=== PATIENT | male | born 1950 | race Caucasian/White ===

== ENCOUNTER → 2016-08-17 | Outpatient (CLI) | payer BC, OTHER ==
[~2016-08-17] MED LIST: ACET325T96 PO; BACL10TA PO; BISA10SU38 PR; CALC500C3; CHOL1CAP57 PO; CLR10 PO; FLUT0.0529; FLX10 PO; GABA-113 PO; LISI-725 PO; LORA-741 PO; LSX/40 PO; MELA1CAP PO; MOML PO; MULT-506 PO; OXYC-57 PO; POLY335025; POTA10CA28 PO; POTAGRA; SALI0.6510; SIMV20TA2 PO; SODIENE PR; SULF800T23 PO; TRAM-10 PO; WARF4TAB8 PO; ZNF/4 PO; ZNT/150 PO; [UNRECOGNIZED DRUG - OTHER] PO
--- NOTE | 2016-08-17 18:56 | DIAGNOSTIC IMAGING REPORT ---
KUB CLINICAL HISTORY: Right-sided nephrolithiasis COMPARISON STUDY: CT scan dated 09/23/2015 FINDINGS: The renal shadows are largely obscured by overlying bowel gas and fecal material. There is gaseous distention of the bowel. There is a suspected 1 cm right renal calculus. There is an IVC filter with its apex at the T12-L1 level. There are multiple pelvic basin calcifications. Several these are in the midline, consistent with bladder calculi. IMPRESSION: 1. Mild gaseous distention of bowel 2. Right-sided nephrolithiasis 3. Multiple bladder calculi Electronically signed by: Cj Garsia M.D. 08/17/2016 6:55 PM Dictated Date/Time: 08/17/2016 6:52 PM
== END | disposition home or self-care (01) ==
LOC: C.RAD 17:57
PROVIDERS: ATTEND Urology
DX: N20.0 Calculus of kidney (principal); N21.0 Calculus in bladder

== ENCOUNTER → 2016-08-17 | Outpatient (CLI) | payer BC, OTHER | END | disposition home or self-care (01) | LOC: C.LABSPEC 11:27 | PROVIDERS: ATTEND Urology | DX: N20.0 Calculus of kidney (principal) ==

== ENCOUNTER 2016-08-29 08:32 | Day surgery (SDC) | payer BC, OTHER ==
[2016-08-22 14:10] VITALS: BMI 31.0
--- NOTE | 2016-08-24 15:52 | PAT Medication Instructions ---
Service Date Aug 24, 2016. Current Home Medication List Acetaminophen Tab (Tylenol), 650 MG PO PRN Baclofen (Lioresal), 20 MG PO Q6H Bisacodyl (Dulcolax), 1 SUPP HI HS Calcium Carbonate (Tums), 1,250 TID Cholecalciferol (Vitamin D3), 1 CAP PO QPM Cyclobenzaprine HCl (Cyclobenzaprine HCl), 10 MG PO Q8H PRN for Muscle Spasms Fluticasone Propionate (Nasal) (Flonase), 2 SPRAYS QAM Furosemide (Lasix), 40 MG PO QAM Gabapentin (Neurontin), 300 MG PO TID Lisinopril (Zestril), 20 MG PO QPM Loratadine (Claritin), 10 MG PO QAM Lorazepam (Ativan), 0.5 MG PO Q6H PRN for Anxiety/Insomnia Magnesium Hydroxide (Milk Of Magnesia), 30 ML PO DAILY PRN for Constipation Melatonin (Melatonin), 5 MG PO HS Multivitamin (Multivitamin), 1 TAB PO QAM Oxycodone/Acetaminophen 5MG/325MG (Percocet 5MG/325MG), 1 TABLET PO Q4H PRN for Pain Polyethylene Glycol 3350 (Miralax), 17 GM QAM Potassium Chloride (Micro-K Ext Rel), 10 MEQ PO BID Potassium Citrate-Citric Acid (Cytra K Crystals), 15 ML TID Ranitidine Hcl (Zantac), 150 MG PO QAM Saline ([place] Nasal [place]), 2 SPRAYS Q4 PRN for Nasal Congestion Simvastatin (Zocor), 20 MG PO QPM Tizanidine (Tizanidine HCl), 4 MG PO HS Warfarin Sod (Jantoven), 4 MG PO HS Medication Instructions For Your Scheduled Surgery - Please check with prescribing physician for instructions: Warfarin Sod (Jantoven), 4 MG PO HS - Hold the following medications 24 hours prior to surgery: Lisinopril (Zestril), 20 MG PO QPM - Hold the following medications the morning of surgery: Calcium Carbonate (Tums), 1,250 TID Baclofen (Lioresal), 20 MG PO Q6H Multivitamin (Multivitamin), 1 TAB PO QAM Polyethylene Glycol 3350 (Miralax), 17 GM QAM Furosemide (Lasix), 40 MG PO QAM Loratadine (Claritin), 10 MG PO QAM Potassium Chloride (Micro-K Ext Rel), 10 MEQ PO BID Potassium Citrate-Citric Acid (Cytra K Crystals), 15 ML TID Magnesium Hydroxide (Milk Of Magnesia), 30 ML PO DAILY PRN for Constipation Cyclobenzaprine HCl (Cyclobenzaprine HCl), 10 MG PO Q8H PRN for Muscle Spasms - Take the following medications the morning of surgery with a sip of water: Saline ([place] Nasal [place]), 2 SPRAYS Q4 PRN for Nasal Congestion Oxycodone/Acetaminophen 5MG/325MG (Percocet 5MG/325MG), 1 TABLET PO Q4H PRN for Pain (may take if needed up to 4 hours prior to surgery) Acetaminophen Tab (Tylenol), 650 MG PO PRN (may take if needed up to 4 hours prior to surgery) Ranitidine Hcl (Zantac), 150 MG PO QAM Gabapentin (Neurontin), 300 MG PO TID Lorazepam (Ativan), 0.5 MG PO Q6H PRN for Anxiety/Insomnia Fluticasone Propionate (Nasal) (Flonase), 2 SPRAYS QAM - Take the following medications as scheduled the night before surgery: Simvastatin (Zocor), 20 MG PO QPM Tizanidine (Tizanidine HCl), 4 MG PO HS Saline ([place] Nasal [place]), 2 SPRAYS Q4 PRN for Nasal Congestion Oxycodone/Acetaminophen 5MG/325MG (Percocet 5MG/325MG), 1 TABLET PO Q4H PRN for Pain Acetaminophen Tab (Tylenol), 650 MG PO PRN Oxycodone/Acetaminophen 5MG/325MG (Percocet 5MG/325MG), 1 TABLET PO Q4H PRN for Pain Acetaminophen Tab (Tylenol), 650 MG PO PRN Calcium Carbonate (Tums), 1,250 TID Baclofen (Lioresal), 20 MG PO Q6H Melatonin (Melatonin), 5 MG PO HS Bisacodyl (Dulcolax), 1 SUPP HI HS Cholecalciferol (Vitamin D3), 1 CAP PO QPM Gabapentin (Neurontin), 300 MG PO TID Potassium Chloride (Micro-K Ext Rel), 10 MEQ PO BID Potassium Citrate-Citric Acid (Cytra K Crystals), 15 ML TID Lorazepam (Ativan), 0.5 MG PO Q6H PRN for Anxiety/Insomnia Cyclobenzaprine HCl (Cyclobenzaprine HCl), 10 MG PO Q8H PRN for Muscle Spasms If you have any questions please call us at [phone] or [phone] or [phone]
[~2016-08-29] VITALS: Ht 185.4 cm; Wt 109.1 kg
[~2016-08-29 08:32] MED LIST changes: +GENERAL ORDER PROBLEM SCH; +IMIPENEM/CILASTATIN IV 500 MG in D5W 100ML IV SCH; +LACTATED RINGER'S 1000ML 1,000 ML IV SCH; -SODIENE PR; -SULF800T23 PO; -TRAM-10 PO; -[UNRECOGNIZED DRUG - OTHER] PO
[2016-08-29] MEDS ORDERED: LIDOCAINE HCL 2% 2 ML VIAL (20MG/ML) ONE (09:13)
[2016-08-29] MEDS ORDERED: ONDANSETRON INJ 2 MG/ML 2 ML VIAL ONE (09:13)
[2016-08-29] MEDS ORDERED: DEXAMETHASONE SOD INJ 4 MG/ML VIAL ONE (09:13)
[2016-08-29] MEDS ORDERED: PROPOFOL IV EMULSION 10 MG/ML 20 ML VIAL IV ONE (09:13)
[2016-08-29] MEDS ORDERED: FENTANYL CITRATE INJ 50 MCG/1 ML 2 ML VIAL ONE (09:14)
[2016-08-29] MEDS ORDERED: MIDAZOLAM HCL 1 MG/ML 2ML VIAL ONE (09:14)
[2016-08-29 09:44] VITALS: BP 145/79; PULSE 62; TEMP 36.9; O2SAT 95; Ht 185.4 cm; Wt 109.1 kg
[2016-08-29 09:56] LABS: INR 1.3 (0.9-1.1); PARTIAL THROMBOPLASTIN RATIO 1.1
--- NOTE | 2016-08-29 10:09 | History & Physical Bridge Note ---
H&P Re-Evaluation Bridge Note: I have examined the patient, reviewed the History & Physical and in the interval since the performance of the History & Physical I have noted the following changes of clinical significance: No changes noted
[2016-08-29] MEDS ORDERED: SULF800T23 PO ×2 (10:20→11:44)
[2016-08-29] MEDS ORDERED: EpHEDrine SULFATE INJ 50 MG/ML AMP ONE (10:48)
[2016-08-29] MEDS ORDERED: WATER, STERILE FOR INJ 10 ML VIAL ONE (10:48)
[2016-08-29] MEDS ORDERED: SODIUM CHLORIDE 0.9% 1000ML 1,000 ML IV SCH (11:42)
--- NOTE | 2016-08-29 11:42 | [facility] Post Operative Brief Note ---
Immediate Operative Summary Operative Date Aug 29, 2016. Pre-Operative Diagnosis Bladder and ureteral calculi Post-Operative Diagnosis Bladder and ureteral calculi Procedure(s) Performed Cystoscopy, Right Ureteroscopy, Laser Lithotripsy; bladder stone removal, right ureteral stent placement ([id number]) Surgeon Dr. Jordan Barclay Foundation Drill Operator Surgeon(s) None Estimated Blood Loss 5mL Findings Several (3-4) stones in the bladder - irrigated out of the bladder; 2 distal ureteral stones. Specimens Permanent specimens A: Bladder stones for analysis Drains 6Fx 22-32cm Anesthesia Gen Complication(s) None Disposition Recovery Room / PACU (stable)
[2016-08-29] MEDS ORDERED: OXYCODONE/ACETAMINOPHEN 5-325 TAB PO PRN ×2 (11:45)
--- NOTE | 2016-08-29 11:45 | Discharge Instructions ---
Discharge Instructions Admission Reason for Admission: STONE Discharge Discharge Diagnosis / Problem: stones Discharge Goals Goal(s): Decrease discomfort, Improve function, Increase independence, Improve disease control Activity Recommendations Activity Limitations: resume your previous activity Lifting Limitations: none Exercise/Sports Limitations: none May Resume Sexual Activity: when tolerated Shower/Bathe: no limitations Driving or Machine Use: no limitations . Instructions / Follow-Up Instructions / Follow-Up Please keep your previously scheduled follow up appointment with Dr. Barclay Discharge Diet Recommended Diet: Regular Diet Procedures Procedures Performed: Cystoscopy, Right Ureteroscopy, Laser Lithotripsy; bladder stone removal, right ureteral stent placement ([id number]) Pending Studies Studies pending at discharge: no Medical Emergencies . Who to Call and When: Medical Emergencies: If at any time you feel your situation is an emergency, please call 911 immediately. . Non-Emergent Contact Non-Emergency issues call your: Urologist Call Non-Emergent contact if: you have a fever, temperature is above 101.5, your pain is not controlled, your pain is worsening . . "Provider Documentation" section prepared by Ortiz Savage. VTE Core Measure Inpt VTE Proph given/why not?: Warfarin (Coumadin)
[2016-08-29] MEDS ORDERED: EpHEDrine SULFATE INJ 50 MG/ML AMP IV PRN (12:00)
[2016-08-29] MEDS ORDERED: ATROPINE SULFATE 0.1 MG/ML 5ML SYR IV PRN (12:00)
--- NOTE | 2016-08-29 12:17 | OPERATIVE REPORT ---
DATE OF OPERATION: 08/29/2016 PREOPERATIVE DIAGNOSIS: Right ureteral calculi and bladder calculi. POSTOPERATIVE DIAGNOSIS: Same. PROCEDURES PERFORMED: Cystoscopy, extraction of bladder calculi, right ureteroscopy, laser lithotripsy, ureteral stent placement 6 Taiwanese x 22-32 cm. ANESTHESIA: General. ESTIMATED BLOOD LOSS: 5 mL. URINE OUTPUT: Not recorded. SPECIMENS: Bladder stones for routine chemical analysis. DESCRIPTION OF THE PROCEDURE: Quincy Germain was identified in the preoperative holding area. Appropriate informed consents were reviewed and completed and the patient was transported to the operating suite. Upon arrival, he received a dose of Primaxin as antibiotic prophylaxis. He has been on Bactrim prior to the procedure as well. His SP tube was clamped and he was put in dorsal lithotomy position where he was sterilely prepped and draped in standard fashion. I began the case by passing a 22-Taiwanese cystoscope with 30-degree lens. Of note, he has moderately high bladder neck, making cystoscopy modestly challenging. After getting scope into the bladder, full inspection revealed no evidence of mucosal disease. Ureteral orifices were in orthotopic position. The SP tube was visible in the dome of the bladder. I was able to turn my attention to the right ureteral orifice and cannulated it with a sensor wire and a 5-Taiwanese open-ended catheter. Of note, I suspect the stone was just inside the ureteral orifice as I had some resistance in this area with an initial attempt to pass through the wire; however, I was able to manipulate it beyond the stone. After advancing this wire to the kidney under fluoroscopy, I withdrew the cystoscope and I reentered with a semirigid ureteroscope. Although it was somewhat challenging to get over the bladder neck and prostate, I was able to guide this into the distal right ureter and I passed a second wire through the lumen of the scope to help guide it into the distal ureter. Approximately 2 cm inside the UO, I was able to encounter 2 yellow appearing calculi that were free floating and not impacted in the ureter. I passed 400 micron laser fiber and I fragmented these stones completely, irrigating as much out of the ureter as possible, pulverizing everything into pieces sub 1 mm. After confirming no large retained pieces in the distal ureter, I placed a 6 Taiwanese x 22-32 cm double-J ureteral stent, seeing a good curl in the kidney as well as the bladder. I subsequently concluded the case. The patient was extubated and taken to the PACU in stable condition. His SP tube was unclamped prior to conclusion of the case. I attest to the content of the Intraoperative Record and any orders documented therein. Any exceptions are noted below. FRANSISCOD
--- NOTE | 2016-08-29 12:20 | DIAGNOSTIC IMAGING REPORT ---
RETROGRADE INCLUDES KUB HISTORY: RT CYSTO/LASER/STENT FLUOROSCOPY TIME: 12 seconds. FINDINGS: 1 fluoroscopic spot image was submitted for review. Single image demonstrates a proximal ureteral stent which is likely in good position. The distal ureteral stent was not included. IVC filter is noted. IMPRESSION: Fluoroscopy provided for right ureteral stent placement. Electronically signed by: Gurinder Cooper M.D. 08/29/2016 12:18 PM Dictated Date/Time: 08/29/2016 12:17 PM
--- NOTE | 2016-08-29 12:28 | Anesthesiology Progress Note ---
Anesthesia Post Op Note Date & Time Aug 29, 2016 at 12:28 Vital Signs Pain Intensity: 0 Vital Signs Past 12 Hours Date Time Temp Pulse Resp B/P Pulse Ox O2 Delivery O2 Flow Rate FiO2 08/29/16 12:20 36.6 78 20 145/76 94 Room Air 08/29/16 12:10 75 19 150/79 95 Room Air 08/29/16 12:00 77 21 161/87 98 Mask 10 08/29/16 11:50 74 15 159/92 98 Mask 10 08/29/16 11:42 36.4 79 12 161/81 98 Mask 10 08/29/16 09:44 36.9 62 18 145/79 95 Room Air Notes Mental Status: alert / awake / arousable, participated in evaluation Pt Amnestic to Procedure: Yes Nausea / Vomiting: adequately controlled Pain: adequately controlled Airway Patency, RR, SpO2: stable & adequate BP & HR: stable & adequate Hydration State: stable & adequate Anesthetic Complications: no major complications apparent
[2016-08-29 12:40] VITALS: BP 152/75; PULSE 76; TEMP 36.7; O2SAT 94
[2016-08-29 13:10] VITALS: BP 144/71; PULSE 81; O2SAT 96
[2016-08-29 13:40] VITALS: BP 146/64; PULSE 86; TEMP 36.5; O2SAT 96
== END 2016-08-29 14:20 | disposition home or self-care (01) ==
LOC: C.ACU 08:32
PROVIDERS: ATTEND Urology
DX: N20.1 Calculus of ureter (principal); N21.0 Calculus in bladder; N31.9 Neuromuscular dysfunction of bladder, unspecified; G82.50 Quadriplegia, unspecified; I82.409 Acute embolism and thrombosis of unspecified deep veins of unspecified lower extremity; I10 Essential (primary) hypertension; E78.5 Hyperlipidemia, unspecified; Z79.899 Other long term (current) drug therapy

== ENCOUNTER 2017-08-15 11:35 | Day surgery (SDC) | payer BC, OTHER ==
[2017-08-02 09:30] VITALS: BMI 31.0
[~2017-08-15] VITALS: Ht 185.4 cm; Wt 106.8 kg
[~2017-08-15 11:35] MED LIST changes: -CALC500C3; +CALC500C3 PO; +CEFTRIAXONE SOD INJ 1 GM in DEXTROSE 5% ADD-VANTAGE 50ML 50 ML IV SCH; +CEFTRIAXONE SOD INJ 1000 MG in DEXTROSE 5% 50ML XX SCH; -FLUT0.0529; +FLUT0.15 NAE; -GENERAL ORDER PROBLEM SCH; -IMIPENEM/CILASTATIN IV 500 MG in D5W 100ML IV SCH; -POTAGRA; +RIVA1TAB4 PO; -WARF4TAB8 PO
[2017-08-15] MEDS ORDERED: OXYC1TAB3 PO (12:29)
[2017-08-15] MEDS ORDERED: PAXIL PO (12:34)
[2017-08-15] MEDS ORDERED: Bactrim PO (12:36)
[2017-08-15 12:41] VITALS: BP 154/75; PULSE 59; TEMP 36.8; O2SAT 99; Ht 185.4 cm; Wt 106.8 kg
[2017-08-15] MEDS ORDERED: ONDANSETRON INJ 2 MG/ML 2 ML VIAL ONE (13:00)
[2017-08-15] MEDS ORDERED: NALOXONE HCL 0.4 MG/1 ML VIAL/CARP IV PRN (13:00)
[2017-08-15] MEDS ORDERED: FLUMAZENIL 0.1 MG/1 ML 10 ML VIAL IV PRN (13:00)
[2017-08-15] MEDS ORDERED: PHENYLEPHRINE 100MCG/ML 5ML SYR IV PRN (13:00)
[2017-08-15] MEDS ORDERED: FENTANYL CITRATE INJ 50 MCG/1 ML 2 ML VIAL IV PRN (13:00)
[2017-08-15] MEDS ORDERED: PHENYLEPHRINE 100MCG/ML 5ML SYR ONE (13:00)
[2017-08-15] MEDS ORDERED: HYDROmorphone INJ 2 MG/ML SYR/VIAL IV PRN (13:00)
[2017-08-15] MEDS ORDERED: ATROPINE SULFATE 0.1 MG/ML 5ML SYR IV PRN (13:00)
[2017-08-15] MEDS ORDERED: MEPERIDINE HCL 25 MG/ML CARP IV PRN (13:00)
[2017-08-15] MEDS ORDERED: DEXAMETHASONE SOD INJ 4 MG/ML VIAL ONE (13:00)
[2017-08-15] MEDS ORDERED: EpHEDrine SULFATE INJ 50 MG/ML AMP IV PRN (13:00)
[2017-08-15] MEDS ORDERED: PROPOFOL IV EMULSION 10 MG/ML 20 ML VIAL IV ONE (13:00)
[2017-08-15] MEDS ORDERED: MIDAZOLAM HCL 1 MG/ML 2ML VIAL ONE (13:00)
[2017-08-15] MEDS ORDERED: LIDOCAINE HCL 2% 2 ML VIAL (20MG/ML) ONE (13:00)
[2017-08-15] MEDS ORDERED: EpHEDrine SULFATE 50MG/5ML SYR ONE (13:00)
[2017-08-15] MEDS ORDERED: ONDANSETRON INJ 2 MG/ML 2 ML VIAL IV PRN (13:00)
[2017-08-15] MEDS ORDERED: LABETALOL HCL IV 5 MG/ML 20ML IV PRN (13:00)
[2017-08-15] MEDS ORDERED: FENTANYL CITRATE INJ 50 MCG/1 ML 2 ML VIAL ONE (13:00)
[2017-08-15] MEDS ORDERED: CONRAY 30% 150ML BOTTLE ONE (13:55)
[2017-08-15] MEDS ORDERED: CEFA500C2 PO (14:02)
--- NOTE | 2017-08-15 14:05 | Discharge Instructions ---
Discharge Instructions Date of Service Aug 15, 2017. Admission Reason for Admission: STONE Discharge Discharge Diagnosis / Problem: stones Discharge Goals Goal(s): Decrease discomfort, Improve function, Increase independence, Improve disease control Activity Recommendations Activity Limitations: resume your previous activity Lifting Limitations: none Exercise/Sports Limitations: none May Resume Sexual Activity: when tolerated Shower/Bathe: no limitations Driving or Machine Use: resume 1 day after discharge Please resume your routine activities as tolerated. Instructions / Follow-Up Instructions / Follow-Up You may remove your stent on Monday, assuming you have no pain or fevers. If you have either pain or fevers, please leave your stent in place and call Dr. Barclay's office. Current Hospital Diet Patient's current hospital diet: Discharge Diet Recommended Diet: Regular Diet Pending Studies Studies pending at discharge: no Medical Emergencies . Who to Call and When: Medical Emergencies: If at any time you feel your situation is an emergency, please call 911 immediately. . Non-Emergent Contact Non-Emergency issues call your: Urologist Call Non-Emergent contact if: you have a fever, temperature is above 101.5, your pain is not controlled, your pain is worsening . . "Provider Documentation" section prepared by Ortiz Savage. . VTE Core Measure Inpt VTE Proph given/why not?: Other Anticoagulation
[2017-08-15] MEDS ORDERED: GLYCOPYRROLATE INJ 0.2 MG/ML VIAL ONE (14:31)
--- NOTE | 2017-08-15 15:38 | [facility] Post Operative Brief Note ---
Immediate Operative Summary Operative Date Aug 15, 2017. Pre-Operative Diagnosis Right Renal Calculus Post-Operative Diagnosis Right Renal Calculus Procedure(s) Performed Cystoscopy, Right Ureteroscopy, Laser Lithotripsy; stent ([id number]) Surgeon Dr. Jordan Barclay Breaker Machine Operator Surgeon(s) none Estimated Blood Loss 5cc Findings Consistent with Post-Op Diagnosis Specimens None Anesthesia Type General Complication(s) none Disposition Disposition: Recovery Room / PACU (stable)
--- NOTE | 2017-08-15 15:45 | DIAGNOSTIC IMAGING REPORT ---
REZA CLINICAL HISTORY: 67 years-old Male presenting with RIGHT SIDE CYSTO, LASER, STENT. TECHNIQUE: 0 fluoroscopic spot image(s) obtained as part of an intraoperative procedure. COMPARISON: CT from 07/27/2017. FINDINGS/IMPRESSION: No images were recorded for review. Please see surgical report for further details. Dose area product (mGy.cm^2): 1646.0. Fluoroscopy time: 21.6 seconds. Number of fluoroscopic spot images: 0. Electronically signed by: James Ashton M.D. 08/15/2017 3:44 PM Dictated Date/Time: 08/15/2017 3:43 PM
[2017-08-15] MEDS ORDERED: SODIUM CHLORIDE 0.9% 1000ML 1,000 ML IV SCH (16:01)
[2017-08-15] MEDS ORDERED: OXYCODONE/ACETAMINOPHEN 5-325 TAB PO PRN ×2 (16:15)
[2017-08-15] MEDS ORDERED: ACETAMINOPHEN 325 MG TAB PO PRN (16:15)
--- NOTE | 2017-08-15 16:23 | Anesthesiology Progress Note ---
Anesthesia Post Op Note Date & Time Aug 15, 2017 at 16:22 Vital Signs Pain Intensity: 0 Vital Signs Past 12 Hours Date Time Temp Pulse Resp B/P (MAP) Pulse Ox O2 Delivery O2 Flow Rate FiO2 08/15/17 16:16 72 15 08/15/17 16:10 36.7 69 16 148/76 (88) 98 Room Air 08/15/17 16:05 72 15 155/79 98 08/15/17 16:05 72 15 08/15/17 16:00 63 12 08/15/17 16:00 62 12 131/76 96 08/15/17 15:59 62 7 95 08/15/17 15:59 62 7 08/15/17 15:55 129/77 08/15/17 15:55 129/77 08/15/17 15:54 65 11 08/15/17 15:54 65 11 97 08/15/17 15:54 65 11 97 08/15/17 15:54 65 11 08/15/17 15:50 127/73 08/15/17 15:50 127/73 08/15/17 15:49 62 10 94 08/15/17 15:49 62 10 08/15/17 15:49 62 10 08/15/17 15:49 62 10 94 08/15/17 15:45 124/68 08/15/17 15:45 124/68 08/15/17 15:44 61 12 08/15/17 15:44 36.7 63 12 113/71 95 Oxymask 10 08/15/17 15:44 72 12 113/71 94 08/15/17 15:44 61 12 08/15/17 15:44 72 12 113/71 94 08/15/17 12:41 36.8 59 18 154/75 (101) 99 Room Air Notes Mental Status: alert / awake / arousable, participated in evaluation Pt Amnestic to Procedure: Yes Nausea / Vomiting: adequately controlled Pain: adequately controlled Airway Patency, RR, SpO2: stable & adequate BP & HR: stable & adequate Hydration State: stable & adequate Anesthetic Complications: no major complications apparent
[2017-08-15 16:37] VITALS: BP 144/72; PULSE 65; TEMP 36.5; O2SAT 94
[2017-08-15 17:07] VITALS: BP 153/76; PULSE 60; TEMP 36.6; O2SAT 96
--- NOTE | 2017-08-17 16:11 | [facility] Operative Report ---
Operative Report Operative Date Aug 17, 2017. Pre-Operative Diagnosis Right Renal Calculus Post-Operative Diagnosis Right Renal Calculus Procedure(s) Performed Cystoscopy, Right Ureteroscopy, Laser Lithotripsy; stent ([id number]) Surgeon Dr. Jordan Barclay Air Analysis Technician Surgeon(s) none Estimated Blood Loss 5cc Findings Very large right renal calculus Specimens None Anesthesia Type General Complication(s) none Disposition Recovery Room / PACU (stable) Description of Procedure The patient was identified in the preoperative holding area, appropriate informed consents reviewed and completed the was transported to the operating suite. He received appropriate general anesthesia as well as ceftriaxone prior to in beginning the case. Of note, the patient is a quadriplegic with a longstanding suprapubic tube and recurrent urinary calculi. He has recently developed a large stone in the right kidney - with relatively rapid growth over the past 6 months. A to begin today's case, I passed a 22 Tajik cystoscope with 30 degree lens. Similar to her prior procedures, entering the bladder was quite challenging as he has a high bladder neck and a small bladder secondary to his chronic SP use. I was able to navigate into the bladder and ultimately find the right ureteral orifice. I cannulated this with a Sensor wire and a 10 Tajik double-lumen catheter. A 2nd wire was ultimately guided into the kidney under fluoroscopic guidance utilizing the 10 Tajik double-lumen catheter. After passively dilating the distal ureter with a 10 Tajik double-lumen, I withdrew this and used a ureteral access sheath to access the kidney. A flexible ureteral scope was passed, and in the renal pelvis, I encountered a very large yellow appearing calculus. A 400 micron laser fiber was passed and the stone treatment initiated. After 1 hour of lasering, I would fragment in this entire stone. There were several other stones adjacent to the primary stone, attempted to fragment all of these. The stone was quite soft overall, and in turn there was significant pile of stone debris left at the end of treatment. I attempted to filter through this to identify any large retained fragments, however, the stone burden was enough that I fear there could still be residual larger stone fragments. I ensured there is no evidence of Steinstr[place], and then proceeded to place a 6 Tajik by 22-32 cm double-J ureteral stent. I concluded today's case, but we will plan to return in 2 weeks to filter through this stone debris again and identify any large fragments. He was subsequently extubated and taken to the PACU in stable condition. I attest to the content of the Intraoperative Record and any orders documented therein. Any exceptions are noted below.
== END 2017-08-15 17:34 | disposition home or self-care (01) ==
LOC: C.ACU 11:35
PROVIDERS: ATTEND Urology
DX: R33.9 Retention of urine, unspecified (principal); N31.9 Neuromuscular dysfunction of bladder, unspecified; N20.0 Calculus of kidney; R53.2 Functional quadriplegia; N18.9 Chronic kidney disease, unspecified; E78.5 Hyperlipidemia, unspecified; I12.9 Hypertensive chronic kidney disease with stage 1 through stage 4 chronic kidney disease, or unspecified chronic kidney disease; F41.9 Anxiety disorder, unspecified; F32.9 Major depressive disorder, single episode, unspecified; E66.9 Obesity, unspecified; Z68.31 Body mass index [BMI] 31.0-31.9, adult; Z98.890 Other specified postprocedural states; Z79.899 Other long term (current) drug therapy; Z88.1 Allergy status to other antibiotic agents; Z88.6 Allergy status to analgesic agent; Z88.8 Allergy status to other drugs, medicaments and biological substances; Z86.718 Personal history of other venous thrombosis and embolism; Z82.49 Family history of ischemic heart disease and other diseases of the circulatory system

== ENCOUNTER → 2017-09-04 | Day surgery (SDC) | payer BC, OTHER ==
[2017-08-22 16:00] VITALS: BMI 31.0
[~2017-09-04] VITALS: Ht 185.4 cm; Wt 106.8 kg
[~2017-09-04] MED LIST changes: +ACET-1693 PO; -ACET325T96 PO; +ACETAMINOPHEN 325 MG TAB PO PRN; +ATROPINE SULFATE 0.1 MG/ML 5ML SYR IV PRN; +Bactrim PO; +CEFA500C2 PO; -CEFTRIAXONE SOD INJ 1 GM in DEXTROSE 5% ADD-VANTAGE 50ML 50 ML IV SCH; +CEFTRIAXONE SOD INJ 1000 MG in DEXTROSE 5% 50ML IV SCH; -CEFTRIAXONE SOD INJ 1000 MG in DEXTROSE 5% 50ML XX SCH; +Cysto-Conray II 17.2% 250ML BOTTLE ONE; +DEXAMETHASONE SOD INJ 4 MG/ML VIAL ONE; +EpHEDrine SULFATE 50MG/5ML SYR ONE; +EpHEDrine SULFATE INJ 50 MG/ML AMP IV PRN; +FENTANYL CITRATE INJ 50 MCG/1 ML 2 ML VIAL IV PRN; +FENTANYL CITRATE INJ 50 MCG/1 ML 2 ML VIAL ONE; +GLYCOPYRROLATE INJ 0.2 MG/ML VIAL ONE; +LIDOCAINE HCL 2% 2 ML VIAL (20MG/ML) ONE; +MIDAZOLAM HCL 1 MG/ML 2ML VIAL ONE; +ONDANSETRON INJ 2 MG/ML 2 ML VIAL IV PRN; +ONDANSETRON INJ 2 MG/ML 2 ML VIAL ONE; -OXYC-57 PO; +OXYC1TAB3 PO; +OXYCODONE/ACETAMINOPHEN 5-325 TAB PO PRN; +PARO30TA PO; +PHENYLEPHRINE HCL INJ 10 MG/ML VIAL ONE; +PROMETHAZINE HCL INJ 6.25 MG in SODIUM CHLORIDE 0.9% 50ML 50 ML IV PRN; +PROPOFOL IV EMULSION 10 MG/ML 20 ML VIAL IV ONE; +SODIUM CHLORIDE 0.9% 1000ML 1,000 ML IV SCH
[2017-09-04 12:45] VITALS: BP 153/74; PULSE 63; TEMP 36.8; O2SAT 96; Ht 185.4 cm; Wt 106.8 kg
--- NOTE | 2017-09-04 14:48 | [facility] Operative Report ---
Operative Report Operative Date Sep 04, 2017. Pre-Operative Diagnosis Nephrolithiasis Post-Operative Diagnosis Nephrolithiasis Procedure(s) Performed Cystoscopy, Right Ureteroscopy, Laser Lithotripsy, Stent Exchange ([id number] with string) Surgeon Dr. Barclay Veterinary Assistant Surgeon(s) none Estimated Blood Loss 0 ml Findings moderate remaining stone burden Specimens none per surgeon Drains stent - [id number] Anesthesia Type General Complication(s) none Disposition no Indications stones; hematuria Description of Procedure The patient was identified in the preoperative holding area, appropriate informed consents reviewed and completed and the patient was transported to the operating suite. Upon arrival he received appropriate preoperative antibiotics in the form of ceftriaxone. Adequate general anesthesia was achieved and he was placed in dorsal lithotomy position where he was sterilely prepped and draped in standard fashion. I began the case by passing a 22 Armenian cystoscope per urethra. Inspection revealed no evidence of stricture disease. Becomes challenging into the bladder secondary to a right moderately high bladder neck as well as a swollen scrotum. Upon entry into the bladder, he is immediately noted to have a suprapubic tube as well as a right ureteral stent. The distal aspect of the right ureteral stent was grasped and withdrawn to the urethral meatus. Fluoroscopic observation of the superior curl confirmed an excellent unraveling during the withdrawal of the stent. Stent was subsequently intubated with a sensor wire. 10 Armenian double lumen catheter was utilized to place a second wire into the kidney. A ureteral access sheath was guided over one wire will reserving the other as a safety wire. I then passed a flexible ureteroscope per the access sheath. Initial inspection at the end of the ureteral access sheath seemed to reveal a healthy-appearing kidney, upon further inspection I realized that this was just below the UPJ and a moderately dilated section of ureter. I was able to navigate beyond this with the scope and truly enter the renal pelvis. Contrast was instilled at that time to better elucidate the full anatomy. He has a moderately dilated renal pelvis with blunt flat calyces around it. Visible inspection revealed significant stone debris with several large fragments as well as numerous small pieces. Much of the dust created from our last surgery had successfully cleared. I then passed a 400 m laser fiber and began laser lithotripsy. Utilizing dusting setting on the laser, was able to fragment the large pieces into a powdered dust very easily. I then sequentially worked through the remaining aspects of the debris until I felt all pieces were successfully treated maximally. At the conclusion of the laser lithotripsy portion of the case, there was only dust within the kidney and no large retained fragments. I attempted to irrigate as much of this debris out of the kidney as possible utilizing the ureteral access sheath. I then performed a very careful exit ureteroscopy while simultaneously withdrawing the ureteral access sheath. To conclude the case I placed a 6 Armenian by 2232 cm double-J ureteral stent. There was a good curl in the upper pole as well as a good curl in the bladder. A string was left attached to the distal aspect of the stent and it was affixed to the penis. The patient was subsequent extubated and taken to the PACU in stable condition. I attest to the content of the Intraoperative Record and any orders documented therein. Any exceptions are noted below.
--- NOTE | 2017-09-04 15:02 | DIAGNOSTIC IMAGING REPORT ---
RETROGRADE INCLUDES KUB CLINICAL HISTORY: 67 years-old Male presenting with RT LASER/LITHO AND STENT EXCHANGE. TECHNIQUE: 5 fluoroscopic spot image(s) obtained as part of an intraoperative procedure. COMPARISON: CT from 07/27/2017. FINDINGS/IMPRESSION: A catheter was introduced into the right renal collecting system over a guidewire to the level of the calculus at the right ureteropelvic junction. Subsequently, a right ureteral stent was placed. Inferior vena cava filter noted at the level of L1. Please see surgical report for further details. Dose area product (mGy.cm^2): 4324.4. Fluoroscopy time: 57.7 seconds. Number of fluoroscopic spot images: 5. Electronically signed by: James Ashton M.D. 09/04/2017 3:00 PM Dictated Date/Time: 09/04/2017 2:58 PM
--- NOTE | 2017-09-04 15:09 | Anesthesiology Progress Note ---
Anesthesia Post Op Note Date & Time Sep 04, 2017 at 15:09 Vital Signs Pain Intensity: 0 Vital Signs Past 12 Hours Date Time Temp Pulse Resp B/P (MAP) Pulse Ox O2 Delivery O2 Flow Rate FiO2 09/04/17 15:00 83 16 136/67 97 Oxymask 5 09/04/17 14:54 36.3 80 12 143/65 95 Oxymask 5 09/04/17 12:45 36.8 63 63 153/74 (100) 96 Room Air Notes Mental Status: alert / awake / arousable, participated in evaluation Pt Amnestic to Procedure: Yes Nausea / Vomiting: adequately controlled Pain: adequately controlled Airway Patency, RR, SpO2: stable & adequate BP & HR: stable & adequate Hydration State: stable & adequate Anesthetic Complications: no major complications apparent
--- NOTE | 2017-09-04 15:23 | Discharge Instructions ---
Discharge Instructions Date of Service Sep 04, 2017. Admission Reason for Admission: Stones Discharge Discharge Diagnosis / Problem: stones Discharge Goals Goal(s): Decrease discomfort, Improve function, Increase independence, Improve disease control Activity Recommendations Activity Limitations: resume your previous activity Lifting Limitations: none Exercise/Sports Limitations: none May Resume Sexual Activity: when tolerated Shower/Bathe: no limitations Driving or Machine Use: resume 1 day after discharge . Instructions / Follow-Up Instructions / Follow-Up It is ok to use the string to remove your stent on Monday. If you are having fevers or other issues prior to that time, please call Dr. Barclay before removing the stent. Dr. Barclay's office will call you to schedule a follow up CT scan and a nephrology appointment. Current Hospital Diet Patient's current hospital diet: Discharge Diet Recommended Diet: Regular Diet Procedures Procedures Performed: Cystoscopy, Right Ureteroscopy, Laser Lithotripsy, Stent Exchange ([id number] with string) Pending Studies Studies pending at discharge: no Medical Emergencies . Who to Call and When: Medical Emergencies: If at any time you feel your situation is an emergency, please call 911 immediately. . Non-Emergent Contact Non-Emergency issues call your: Urologist Call Non-Emergent contact if: you have a fever, temperature is above 101.5, your pain is unusual for you . . "Provider Documentation" section prepared by Ortiz Savage. . VTE Core Measure Inpt VTE Proph given/why not?: Other Anticoagulation
[2017-09-04 15:45] VITALS: BP 145/68; PULSE 75; TEMP 36.9; O2SAT 95
[2017-09-04 16:10] VITALS: BP 147/69; PULSE 76; O2SAT 94
[2017-09-04 16:45] VITALS: BP 148/69; PULSE 80; TEMP 36.7; O2SAT 9
== END | disposition home or self-care (01) ==
LOC: C.ACU 11:55
PROVIDERS: ATTEND Urology
DX: N20.0 Calculus of kidney (principal); N31.9 Neuromuscular dysfunction of bladder, unspecified; E78.5 Hyperlipidemia, unspecified; I10 Essential (primary) hypertension; F32.9 Major depressive disorder, single episode, unspecified; Z86.14 Personal history of Methicillin resistant Staphylococcus aureus infection; Z86.718 Personal history of other venous thrombosis and embolism; Z87.442 Personal history of urinary calculi; Z86.711 Personal history of pulmonary embolism; Z87.440 Personal history of urinary (tract) infections; Z82.49 Family history of ischemic heart disease and other diseases of the circulatory system; Z88.0 Allergy status to penicillin; Z88.6 Allergy status to analgesic agent; Z88.8 Allergy status to other drugs, medicaments and biological substances

== ENCOUNTER 2019-04-06 17:15 | Observation (INO) ==
[2019-04-06] MEDS ORDERED: ONDANSETRON INJ 2 MG/ML 2 ML VIAL IV STA (17:36)
[2019-04-06] MEDS ORDERED: SODIUM CHLORIDE 0.9% 1000ML 1,000 ML IV ONE (17:36)
[2019-04-06] MEDS ORDERED: MoRPHine SULFATE 4 MG/ML 1 ML CARP\\VIAL IV STA (17:36)
[2019-04-06 18:24] LABS: Basophils # (auto) 0.01 K/uL (0-0.2); Basophils % (auto) 0.1 %; Eosinophils # (auto) 0.25 K/uL (0-0.5); Eosinophils % (auto) 3.6 %; Hematocrit (blood only) 47.7 % (42-52); Hemoglobin 16.2 g/dL (14.0-18.0); Immature Granulocytes # (auto) 0.01 K/uL (0.00-0.02); Immature Granulocytes % (auto) 0.1 %; Lymphocytes # (auto) 0.87 K/uL (1.2-3.4); Lymphocytes % (auto) 12.4 %; Mean Corpuscular Hemoglobin 31.2 pg (25-34); Mean Corpuscular Volume 91.7 fL (80-100); Mean Platelet Volume 10.8 fL (7.4-10.4); Monocytes # (auto) 0.53 K/uL (0.11-0.59); Monocytes % (auto) 7.5 %; Neutrophils # (auto) 5.36 K/uL (1.4-6.5); Neutrophils % (auto) 76.3 %; Platelet Count 224 K/uL (130-400); RDW Coefficient of Variation 13.1 % (11.5-14.5); RDW Standard Deviation 44.1 fL (36.4-46.3); White Blood Count 7.03 K/uL (4.8-10.8)
[2019-04-06 18:42] LABS: Albumin Level 3.5 gm/dl (3.4-5.0); BUN Creatinine Ratio 10.5 (10-20); Calcium 9.6 mg/dl (8.5-10.1); Est GFR (African American) 88.8; Est GFR (Non-African American) 76.6; Potassium 3.9 mmol/L (3.5-5.1)
[2019-04-06 18:45] LABS: Albumin Globulin Ratio 0.7 (0.9-2); Bilirubin,Total 0.4 mg/dl (0.2-1); Globulin 4.8 gm/dl (2.5-4.0); Total Protein 8.3 gm/dl (6.4-8.2)
[2019-04-06 19:09] LABS: Appearance Urine Turbid (Clear); Bilirubin Urine Negative (Negative); Blood Urine 3+ (Negative); Color Urine Red; Glucose Urine UA Negative (Negative); Ketones Urine 2+ (Negative); Leukocyte Esterase Urine 2+ (Negative); Nitrite Urine Negative (Negative); Specific Gravity Urine 1.015 (1.000-1.030); Urobilinogen Urine Negative (Negative); pH Urine 7.5 (4.5-7.5)
[2019-04-06 19:14] LABS: Protein Urine 2+ (Negative)
[2019-04-06 19:15] LABS: Sulfosalicylic Acid Urine Positive (Negative)
[2019-04-06 19:18] LABS: Bacteria Urine 3+ (Negative); Epithelial Cell Urine 0-5 /lpf (0-5); RBC Urine >30 /hpf (0-4); WBC Urine >30 /hpf (0-5)
[2019-04-06] MEDS ORDERED: cefTRIAXone SODIUM 1,000 MG/50 ML BAG IV STA (19:24)
--- NOTE | 2019-04-06 19:37 | CT Scan Report ---
CT OF THE ABDOMEN AND PELVIS WITHOUT CONTRAST CLINICAL HISTORY: Stent placement. Hematuria. COMPARISON STUDY: CT of the abdomen and pelvis February 10, 2019. TECHNIQUE: Axial images of the abdomen and pelvis were obtained without IV contrast. Images were revi ewed in the axial, sagittal, and coronal planes. Automated exposure control was utilized for the rebecca dy. A dose lowering technique was utilized adhering to the principles of ALARA. FINDINGS: Elevation of the left hemidiaphragm is unchanged. A low-attenuation right adrenal nodule re flects an adenoma. A few hepatic cysts are noted. A gallstone is noted within the gallbladder without evidence for acute cholecystitis. A left adrenal nodule is also low-attenuation represents an adenom a. Unenhanced images of the spleen and pancreas are unremarkable. There is no biliary or pancreatic d uctal dilatation. There is no peripancreatic infiltration. There is no evidence for a bowel obstructi on. No pneumatosis, free air or portal venous gas is present. The appendix is normal. Right ureteral stent is in place. A small amount of gas is noted within the right ureter and collecti ng system which is likely related to recent stent placement. There is mild right periureteral infiltr ation which extends into the pelvis. There is infiltration adjacent to the bladder. Suprapubic cathet er is in place. A few small fragments within the bladder measure up to 5 mm. The large bladder calcul us on CT of February 10, 2019 is no longer evident. There are no ureteral calculi. Multiple bilateral re nal calculi are noted, including a 1.1 cm calculus within lower pole of the right kidney. There is a 9 mm calculus within the right renal pelvis. The calculus burden has decreased since CT of February 10, 2019. Water attenuation left renal lesions are suboptimally assessed on this unenhanced exam but favo r cysts. IMPRESSION: 1. Right ureteral stent in place. No hydronephrosis or hydroureter. Gas within the right ureter and c ollecting system likely from stent insertion. No ureteral calculi. 9 mm right renal pelvis calculus, a few small fragments within the bladder and bilateral nephrolithiasis. Interval decrease in calculus burden since CT of February 10, 2019. 2. Infiltration adjacent to the bladder which is nonspecific and could be correlated with urinalysis. Suprapubic catheter in place. 3. No bowel obstruction. Normal appendix. Electronically signed by: Elier Clemens M.D. 04/06/2019 7:35 PM
--- NOTE | 2019-04-06 19:58 | Emergency Department Note ---
Entered by Marlene Liao acting as a scribe for Meño Kat DO History of Present Illness General Chief complaint: Hematuria Source: patient History of Present Illness Onset (ago): hour(s) 5 Location: abdomen (Hematuria) Severity: similar to prior episodes Pain Consistency: + other (Worsening) Quality: + other (Hematuria) Exacerbated By: + movement Associated symptoms: + other (Clots in urine); no fever/chills and no nausea/vomiting The patient is a 68 year old male with a history of HTN, DVT, Central cord syndrome, Quadriplegia and Depression who is presenting to the Emergency Department complaining of worsening hematuria starting 5 hours ago. The patient reports that he had a right-sided kidney stone removed on 04/01/19 and has been experiencing hematuria ever since. He explains that he noticed that the blood in his urine was darker than normal and that there were clots of blood in his urine today. He states that he has experienced kidney stones and hematuria before but that he has never had clots in his urine. He notes that his catheter was flushed 4 times CASE PICKER and that there were clots in each flush. He adds that he regularly takes Xarelto. The patient denies recent fevers, chills, nausea and vomiting. Home Medications Home Medications Medication Instructions Recorded Confirmed Type Fleet Enema 118 ml UT HS PRN 03/22/19 04/01/19 History Unicomplex-M 1 tab PO QAM 03/22/19 04/01/19 History Xarelto 15 mg PO QAM 03/22/19 04/01/19 History acetaminophen [Tylenol] 325 - 650 mg PO Q6H PRN 03/22/19 03/22/19 History alum-mag hydroxide-simeth [Antacid 30 ml PO BID PRN 03/22/19 04/01/19 History Anti-Gas] amlodipine 5 mg PO QAM 03/22/19 04/01/19 History baclofen 20 mg PO Q6H 03/22/19 04/01/19 History bisacodyl 10 mg UT DAILY 03/22/19 04/01/19 History cholecalciferol (vitamin D3) 1,000 unit PO QAM 03/22/19 04/01/19 History [Vitamin D3] docusate sodium 100 mg PO BID 03/22/19 04/01/19 History furosemide 20 mg PO QAM 03/22/19 04/01/19 History gabapentin 300 mg PO TID 03/22/19 04/01/19 History loratadine 10 mg PO QAM 03/22/19 03/22/19 History magnesium hydroxide [Milk of 30 ml PO HS PRN 03/22/19 03/22/19 History Magnesia] nystatin 1 applic TOPICAL BID PRN 03/22/19 03/22/19 History paroxetine HCl 30 mg PO DAILY 03/22/19 04/01/19 History polyethylene glycol 3350 17 g PO Q2D 03/22/19 04/01/19 History potassium chloride 30 meq PO QAM 03/22/19 04/01/19 History potassium citrate 30 meq PO QAM 03/22/19 04/01/19 History ranitidine HCl 150 mg PO HS 03/22/19 04/01/19 History selenium sulfide 2.5 % TOPICAL UD 03/22/19 03/22/19 History simvastatin 20 mg PO HS 03/22/19 04/01/19 History sodium chloride [Saline Nasal] 1 spray INTRANASAL BID PRN 03/22/19 03/22/19 History tizanidine 4 mg PO HS 03/22/19 04/01/19 History cefuroxime axetil 500 mg PO BID 7 Days #14 tab 04/01/19 Rx hydrocodone-acetaminophen 1 tab PO Q6H PRN #15 tab 04/01/19 Rx Allergies Allergy/AdvReac Type Severity Reaction Status Date / Time ciprofloxacin Allergy Mild rash Verified 04/06/19 19:32 diazepam Allergy Mild rash Verified 04/06/19 19:32 gentamicin Allergy Mild rash Verified 04/06/19 19:32 ibuprofen Allergy Mild rash Verified 04/06/19 19:32 NSAIDS (Non-Steroidal Allergy Mild RASH Verified 04/06/19 19:32 Anti-Inflamma Quinolones Allergy Mild RASH Verified 04/06/19 19:32 Aminoglycosides Allergy Unknown "can't Verified 04/06/19 19:32 remember" Cipro Allergy Unknown rash Verified 09/04/17 12:40 Past Med/Surg History Medical History Central cord syndrome Chronic pain GENERALIZED ALL OVER (PERIPHERAL NERVES) Deep vein thrombosis LEFT LEG (S/P THROWN OFF HORSE 2010) Hypertension Kidney stones Quadriplegia "PARTIAL". Incomplete quadriplegia. C4 lesion. s/p 2010 trauma. 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 LMA #5. No issues. 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 Feels Safe at Home: Yes Smoking Status: Never smoker Second Hand Exposure: Yes ( A CHILD) ; Hx Alcohol Use: Yes Alcohol type: beer, wine and hard liquor Hx Substance Use: No Review of Systems See HPI for pertinent positives & negatives. and A total of 10 systems reviewed and were otherwise negative Physical Exam Vital Signs Vital Signs - 24 hr 04/06/19 17:15 04/06/19 19:18 Temperature 36.8 C Temperature Source Oral Sepsis Recent Fever Within 48 Hours No Sepsis New/Unexplained Change in Mental Status No Sepsis Action Taken by Nursing No Action Required Pulse Rate 92 H Pulse Rate [Left Finger] 75 Pulse Rhythm [Left Finger] Regular Respiratory Rate 16 20 Respiratory Effort / Characteristics Non-Labored Non-Labored Respiratory Depth Normal Normal Respiratory Pattern Regular Regular Blood Pressure 205/109 H Blood Pressure [Left Arm] 155/74 H Blood Pressure Mean 141 Blood Pressure Mean [Left Arm] 101 Pulse Oximetry 93 92 Oxygen Delivery Method Room Air Room Air GENERAL: Patient is sitting up in bed, alert, well nourished, no distress, non- toxic EYE EXAM: normal conjunctiva. OROPHARYNX: no exudate, no erythema, lips, buccal mucosa, and tongue normal and mucous membranes are moist NECK: supple, no nuchal rigidity, no adenopathy, non-tender LUNGS: Clear to auscultation. Normal chest wall mechanics HEART: no murmurs, S1 normal and S2 normal ABDOMEN: abdomen soft, non-tender, normo-active bowel sounds, no masses, no rebound or guarding. Suprapubic catheter in place with dark red blood present. BACK: Back is symmetrical on inspection and there is no deformity, no midline tenderness, no CVA tenderness. SKIN: no rashes and no bruising UPPER EXTREMITIES: upper extremities are grossly normal. LOWER EXTREMITIES: No pitting edema. NEURO EXAM: Normal sensorium, cranial nerves II-XII grossly intact, normal speech. No movement in the legs/old deficit Course ED COURSE: Vital signs were reviewed and showed hypertension. The patients medical record was reviewed The above diagnostic studies were performed and reviewed. ED treatments and interventions as stated above. 1729: The patient was evaluated in room B11B. A complete history and physical examination was performed. 1814: I updated the patient at this time. His catheter was flushed and the patient had complete relief of his symptoms. 1854: I discussed the patients case with Dr. Velasquez Urology. He recommends that I order a CT. 1919: I discussed the patients case with Dr. Denton BLOOD hospitalist. She will evaluate the patient for further management. 0: Upon reevaluation, I discussed my findings with the patient and he understands and agrees with the treatment plan. Based on the patients age, coexisting illnesses, exam and lab findings the decision to treat as an inpatient was made. The patient remained stable while under my care. The patient will be evaluated for further management. Consultations Consultation #1: I discussed the patients case with Dr. Velasquez Urologmegan. He recommends that I order a CT. Time: 18:55 Consultation #2: I discussed the patients case with Dr. Denton BLOOD hospitalist. She will evaluate the patient for further management. Time: 19:20 Administered Medications Ceftriaxone Sodium (Rocephin) 1,000 mg in 50 mls @ 100 mls/hr IV NOW STA Stop: 04/06/19 19:53 Last Admin: 04/06/19 19:26 Dose: 100 mls/hr Documented by: [id number] Discontinued Medications Sodium Chloride (Nss 1000ml) 1,000 mls @ 999 mls/hr IV .Q1H1M ONE Stop: 04/06/19 18:36 Last Admin: 04/06/19 18:58 Dose: 999 mls/hr Documented by: [id number] Morphine Sulfate (Morphine Sulfate) 4 mg IV NOW STA Stop: 04/06/19 17:37 Last Admin: 04/06/19 18:58 Dose: 4 mg Documented by: [id number] Ondansetron HCl (Zofran) 4 mg IV NOW STA Stop: 04/06/19 17:37 Last Admin: 04/06/19 18:58 Dose: 4 mg Documented by: [id number] Medical Decision Making Differential Diagnosis Differential diagnoses includes but is not limited to gastritis, peptic ulcer disease, GERD, gallbladder disease, pancreatitis, small bowel obstruction, acute coronary syndrome, pericarditis, ischemic bowel, irritable bowel disease, irritable bowel syndrome, appendicitis, diverticulitis, malignancy, hernia, urinary tract infection, torsion, perforation, trauma, infectious. Medical Records Attestation: I reviewed the patient's medical records. Home Medications Current Medication List: was personally reviewed by me Laboratory Data Attestation: I reviewed the patient's lab results. Result diagrams: 04/06/19 18:06 04/06/19 18:06 Lab Results 04/06/19 04/06/19 04/06/19 Range/Units 18:06 18:06 18:07 WBC 7.03 (4.8-10.8) K/uL RBC 5.20 (4.7-6.1) M/uL Hgb 16.2 (14.0-18.0) g/dL Hct 47.7 (42-52) % MCV 91.7 (80-100) fL MCH 31.2 (25-34) pg MCHC 34.0 (32-36) g/dL RDW Std Deviation 44.1 (36.4-46.3) fL RDW Coeff of Cesar 13.1 (11.5-14.5) % Plt Count 224 (130-400) K/uL MPV 10.8 H (7.4-10.4) fL Immature Gran % (Auto) 0.1 % Neut % (Auto) 76.3 % Lymph % (Auto) 12.4 % [place] % (Auto) 7.5 % Eos % (Auto) 3.6 % Baso % (Auto) 0.1 % Immature Gran # (Auto) 0.01 (0.00-0.02) K/uL Neut # (Auto) 5.36 (1.4-6.5) K/uL Lymph # (Auto) 0.87 L (1.2-3.4) K/uL [place] # (Auto) 0.53 (0.11-0.59) K/uL Eos # (Auto) 0.25 (0-0.5) K/uL Baso # (Auto) 0.01 (0-0.2) K/uL Sodium 140 (136-145) mmol/L Potassium 3.9 (3.5-5.1) mmol/L Chloride 102 (98-107) mmol/L Carbon Dioxide 34 H (21-32) mmol/L Anion Gap 4.0 (3-11) BUN 11 (7-18) mg/dl Creatinine 1.01 (0.6-1.4) mg/dl Est Cr Clr Drug Dosing 94.0 ml/min Est GFR ( Amer) 88.8 Est GFR (Non-Af Amer) 76.6 BUN/Creatinine Ratio 10.5 (10-20) Glucose 84 (70-99) mg/dl Calcium 9.6 (8.5-10.1) mg/dl Total Bilirubin 0.4 (0.2-1) mg/dl AST 15 (15-37) U/L ALT 16 (12-78) U/L Alkaline Phosphatase 76 (45-117) U/L Total Protein 8.3 H (6.4-8.2) gm/dl Albumin 3.5 (3.4-5.0) gm/dl Globulin 4.8 H (2.5-4.0) gm/dl Albumin/Globulin Ratio 0.7 L (0.9-2) Lipase 120 (73-393) U/L Urine Color Red Urine Appearance Turbid A (Clear) Urine pH 7.5 (4.5-7.5) Ur Specific [place] 1.015 (1.000-1.030) Urine Protein 2+ H (Negative) Urine Glucose (UA) Negative (Negative) Urine Ketones 2+ H (Negative) Urine Blood 3+ H (Negative) Urine Nitrite Negative (Negative) Urine Bilirubin Negative (Negative) Urine Urobilinogen Negative (Negative) Ur Leukocyte Esterase 2+ H (Negative) Urine RBC >30 H (0-4) /hpf Urine WBC >30 H (0-5) /hpf Ur Epithelial Cells 0-5 (0-5) /lpf Urine Bacteria 3+ H (Negative) Imaging Data Radiologist's Impression: Radiology results as stated below per my review and the radiologist's interpretation: Blood Pressure Blood Pressure Findings: Elevated blood pressure Blood Pressure Disposition: further management by hospitalist ANDRE Narrative Patient is a 68-year-old male who is a paraplegic secondary to being thrown off a horse who presents the ER status post stone removal and stent placement by Dr. Barclay for persistent hematuria and clogging of his suprapubic catheter. He was started back on his Xarelto today. He had been off of it for several days. Bleeding worse. He has been flushed multiple times today. He has had a total of 4 occlusions today to within the past hour. He was transferred here for further evaluation. IV was established blood work was obtained and showed no significant leukocytosis or anemia. BMP along with LFTs bilirubin and lipase is unremarkable. UA with a large amount of hematuria and white cells. Patient was given a dose of antibiotics due to the irrigation. Patient was also given IV morphine. Discussed with Dr. Velasqeuz and he recommended a CT. Following this I rediscussed the case with him and he recommends no Evans placement through the penis at this time and just monitor him closely as the bladder is decompressed. Patient was updated bedside and will be admitted by the hospitalist. Impression & Plan Hematuria, HTN (hypertension), Abdominal pain, Anticoagulated Discharge Plan Visit Data Chief Complaint: Hematuria ED Provider: Mñeo Kat Discharge Problem: Hematuria, HTN (hypertension), Abdominal pain, Anticoagulated Patient Disposition: Being Evaluated by Hospitalist Forms Stand Alone Forms: My [facility] Prescriptions Prescriptions: No Action polyethylene glycol 3350 17 gram Powder In Packet 17 g PO Q2D RF: 0 tizanidine 4 mg Tablet 4 mg PO HS RF: 0 amlodipine 5 mg Tablet 5 mg PO QAM RF: 0 baclofen 20 mg Tablet 20 mg PO Q6H RF: 0 potassium chloride 20 mEq Packet 30 meq PO QAM RF: 0 magnesium hydroxide [Milk of Magnesia] 400 mg/5 mL Suspension 30 ml PO HS PRN (Reason: Constipation) RF: 0 bisacodyl 10 mg Suppository 10 mg UT DAILY RF: 0 paroxetine HCl 30 mg Tablet 30 mg PO DAILY RF: 0 simvastatin 20 mg Tablet 20 mg PO HS RF: 0 nystatin 100,000 unit/gram Cream 1 applic TOPICAL BID PRN (Reason: TO RASH AREA) RF: 0 ranitidine HCl 150 mg Tablet 150 mg PO HS RF: 0 Fleet Enema 19-7 gram/118 mL Enema 118 ml UT HS PRN (Reason: Constipation) RF: 0 gabapentin 300 mg Capsule 300 mg PO TID RF: 0 furosemide 20 mg Tablet 20 mg PO QAM RF: 0 alum-mag hydroxide-simeth [Antacid Anti-Gas] 200-200-20 mg/5 mL Suspension 30 ml PO BID PRN (Reason: Gastric Reflux) RF: 0 docusate sodium 100 mg Tablet 100 mg PO BID RF: 0 loratadine 10 mg Tablet 10 mg PO QAM RF: 0 Unicomplex-M Tablet 1 tab PO QAM RF: 0 cholecalciferol (vitamin D3) [Vitamin D3] 1,000 unit Capsule 1,000 unit PO QAM RF: 0 sodium chloride [Saline Nasal] 0.65 % Aerosol,[place] 1 spray INTRANASAL BID PRN (Reason: Nasal Congestion) RF: 0 potassium citrate 15 mEq Tablet Extended Release 15 meq PO QAM RF: 0 Xarelto 15 mg Tablet 15 mg PO QAM RF: 0 acetaminophen [Tylenol] 325 mg Capsule 325 - 650 mg PO Q6H PRN (Reason: Pain) RF: 0 selenium sulfide 2.5 % Lotion 2.5 % TOPICAL UD RF: 0 cefuroxime axetil 500 mg tablet 500 mg PO BID 7 Days Qty: 14 RF: 0 hydrocodone-acetaminophen 5-325 mg tablet 1 tab PO Q6H PRN (Reason: pain) Qty: 15 RF: 0 Referrals Referrals: Pal Child MD [Primary Care Provider] - Discharge Problem: Hematuria Qualifiers: Hematuria type: unspecified type Qualified Code(s): R31.9 - Hematuria, unspecified HTN (hypertension) Qualifiers: Hypertension type: unspecified Qualified Code(s): I10 - Essential (primary) hypertension Abdominal pain Qualifiers: Abdominal location: unspecified location Qualified Code(s): R10.9 - Unspecified abdominal pain The scribe's documentation has been prepared under my direction and personally reviewed by me in its entirety. I confirm that the note above accurately reflects all work, treatment, procedures, and medical decision making performed by me.
--- NOTE | 2019-04-06 21:33 | History & Physical Report ---
Date of Service April 06, 2019 Assessment & Plan (1) Hematuria: 68-year-old male was admitted on 06 April 2019 for worsening hematuria and bladder clots. Hematuria, right-sided kidney stones: PMH neurogenic bladder. 23Sep underwent cystoscopy, laser lithotripsy, and extraction of stones with placement of right ureteral stent. Previous stone studies pending. Has a suprapubic catheter in place. Concerns for significant clot burden and ongoing hematuria worsening this evening. Patient denies fever or systemic infectious symptoms. - In ED, afebrile, not tachycardic, is hypertensive, with SpO2 93% on room air. No blood leukocytosis. Hb 16.2. Creatinine 1.0. UA positive for RBCs and WBCs. Urine culture sent. CT a/p non-con noted right ureteral stent in place without hydronephrosis or hydroureter (see full report). - In ED, treated with normal saline IVF, Rocephin 1 gm, Zofran, and Marcaine. ED spoke with Dr. Velasquez (urology) per the report recommended the above noted good placement. Recommended catheter in place and intermittent irrigation as needed. - Will continue prior cefuroxime 500 mg PO BID. Placed formal urology consult. Ongoing medical issues: - Hypertension, hyperlipidemia: Continue home amlodipine, Lasix, potassium, simvastatin. Monitor HTN. - Quadriplegia, PSH C5-7 anterior fusion: S/p horse riding accident in 2010. Continue home baclofen, bisacodyl, docusate, Fleet enema as needed, gabapentin, [place], statin, Percocet, polyethylene glycol, tizanidine - Hx DVT, IVC filter placement: Will hold home xarelto in case of procedure tomorrow (Sun 29Sep). - PM Recent sepsis, recurrent UTI: Was admitted in early February 2019 with sepsis at [facility] due to Pseudomonas UTI, GBS bacteremia. Code status: Full code. Diet: NPO for now (in case of procedure tomorrow). DVT prophy: Will hold home xarelto in case of procedure tomorrow (Sun 29Sep). PT/OT: Deferred. Disbo: Admit to [facility] for observation. At baseline, resides at a nursing facility but does go home at times. (2) Nephrolithiasis: (3) Neurogenic bladder: (4) HTN (hypertension): (5) Hyperlipidemia: (6) Quadriplegia: (7) History of DVT (deep vein thrombosis): (8) Recurrent UTI (urinary tract infection): History of Present Illness Primary Care Provider: Pal Child MD 68-year-old male presents via EMS from his nursing facility with concerns for significant bladder clot burden and suprapubic catheter obstruction. He has notable history of a horse riding accident in 2010 resulting in quadriplegia and neurogenic bladder. He has a suprapubic catheter in place. Most recently on April 01 underwent cystoscopy, laser lithotripsy, and extraction of stones with placement of ureteral stent by Dr. Barclay (urology). Patient noted this evening the need for increased frequency of bladder irrigation upwards of q 45 minutes with associated feeling of bladder fullness and a new onset of both bleeding and clots from his urethra. He restarted his Xarelto (history of DVT) on the . He denies any known fevers, feeling of illness, or discomfort outside of the region. - Past medical history includes quadriplegia following a horse riding accident in 2010, neurogenic bladder, hypertension, hyperlipidemia, hematuria, right- sided nephrolithiasis, prior DVT, recurrent UTI and urosepsis - Past surgical history includes C5-7 fusion, ureteral stent placement, suprapubic catheter placement, IVC filter - Social history includes never smoked. Occasional alcohol use. Lives in halfway with occasional visits home to his . Allergies Allergy/AdvReac Type Severity Reaction Status Date / Time ciprofloxacin Allergy Mild rash Verified 04/06/19 19:32 diazepam Allergy Mild rash Verified 04/06/19 19:32 gentamicin Allergy Mild rash Verified 04/06/19 19:32 ibuprofen Allergy Mild rash Verified 04/06/19 19:32 NSAIDS (Non-Steroidal Allergy Mild RASH Verified 04/06/19 19:32 Anti-Inflamma Quinolones Allergy Mild RASH Verified 04/06/19 19:32 Aminoglycosides Allergy Unknown "can't Verified 04/06/19 19:32 remember" Cipro Allergy Unknown rash Verified 09/04/17 12:40 Home Medications Home Medications Medication Instructions Recorded Confirmed Type Fleet Enema 118 ml [place] HS PRN 03/22/19 04/06/19 History Unicomplex-M 1 tab PO QAM 03/22/19 04/06/19 History Xarelto 15 mg PO QAM 03/22/19 04/06/19 History acetaminophen [Tylenol] 325 - 650 mg PO Q6H PRN 03/22/19 04/06/19 History alum-mag hydroxide-simeth [Antacid 30 ml PO BID PRN 03/22/19 04/06/19 History Anti-Gas] amlodipine 5 mg PO QAM 03/22/19 04/06/19 History baclofen 20 mg PO Q6H 03/22/19 04/06/19 History bisacodyl 10 mg [place] DAILY 03/22/19 04/06/19 History cholecalciferol (vitamin D3) 1,000 unit PO QAM 03/22/19 04/06/19 History [Vitamin D3] docusate sodium 100 mg PO BID 03/22/19 04/06/19 History furosemide 20 mg PO QAM 03/22/19 04/06/19 History gabapentin 300 mg PO TID 03/22/19 04/06/19 History loratadine 10 mg PO QAM 03/22/19 04/06/19 History magnesium hydroxide [Milk of 30 ml PO HS PRN 03/22/19 04/06/19 History Magnesia] nystatin 1 applic TOPICAL BID PRN 03/22/19 04/06/19 History paroxetine HCl 30 mg PO DAILY 03/22/19 04/06/19 History polyethylene glycol 3350 17 g PO Q2D 03/22/19 04/06/19 History potassium chloride 30 meq PO QAM 03/22/19 04/06/19 History potassium citrate 15 meq PO QAM 03/22/19 04/06/19 History ranitidine HCl 150 mg PO HS 03/22/19 04/06/19 History selenium sulfide 2.5 % TOPICAL UD 03/22/19 04/06/19 History simvastatin 20 mg PO HS 03/22/19 04/06/19 History sodium chloride [Saline Nasal] 1 spray INTRANASAL BID PRN 03/22/19 04/06/19 History tizanidine 4 mg PO HS 03/22/19 04/06/19 History cefuroxime axetil 500 mg PO BID 7 Days #14 tab 04/01/19 04/06/19 Rx hydrocodone-acetaminophen 1 tab PO Q6H PRN #15 tab 04/01/19 04/06/19 Rx Past Med/Surg History Medical History Central cord syndrome Chronic pain GENERALIZED ALL OVER (PERIPHERAL NERVES) Deep vein thrombosis LEFT LEG (S/P THROWN OFF HORSE 2010) Hypertension Kidney stones Quadriplegia "PARTIAL". Incomplete quadriplegia. C4 lesion. s/p 2010 trauma. 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 LMA #5. No issues. 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 Eyes: Denies any visual loss or diplopia ENT: Denies any ear/nose/throat pain or difficulty speaking or swallowing Respiratory: Denies any dyspnea, cough, hemoptysis Cardiovascular: Denies any chest pain or feeling of edema Gastrointestinal: Denies nausea/vomiting/diarrhea. Positive suprapubic pressure with evaluation. Musculoskeletal: No acute muscle pains. Skin: Denies any known acute rashes or lesions Neuro: Denies any headache, acute changes in weakness or numbness, or difficulties with speech or swallow. Psych: Denies any recent depression or anxiety Physical Exam Physical Exam: GENERAL: Awake, alert, well-appearing overall, in no acute distress HENT: Normocephalic, atraumatic. Oropharynx unremarkable. EYES: Normal conjunctiva. Sclera non-icteric. NECK: Inspection normal. Non-tender. Supple and full ROM. No nuchal rigidity. CARDIAC: +S1S2 RRR, no murmurs. RESPIRATORY: Clear to auscultation. No wheezes or rales. Normal respiratory effort. GI: +BS, soft, non-distended. No tenderness to palpation. No rebound or guarding. Suprapubic catheter in place, draining dark pink urine. EXTREMITIES: Trace bilateral esparza edema. Bilateral compression stockings in place. NEURO: Patient has baseline right greater than left sided weakness and spasticity. He states his neuro status is at baseline to consist of the ability to move his arms and legs minimally, that he could walk with 1-2 person assistance, and that he has perhaps 50 to 70% decreased sensation compared to prior to his cervical spine injury. Results & Data Vital Signs (Past 12 Hours) Vital Signs Temp Pulse Pulse Resp BP BP Pulse Ox 04/06/19 20:43 76 18 146/78 H 95 04/06/19 19:18 75 20 155/74 H 92 04/06/19 17:15 36.8 C 92 H 16 205/109 H 93 Laboratory Results 04/06/19 04/06/19 04/06/19 Range/Units 18:07 18:06 18:06 WBC 7.03 (4.8-10.8) K/uL RBC 5.20 (4.7-6.1) M/uL Hgb 16.2 (14.0-18.0) g/dL Hct 47.7 (42-52) % MCV 91.7 (80-100) fL MCH 31.2 (25-34) pg MCHC 34.0 (32-36) g/dL RDW Std Deviation 44.1 (36.4-46.3) fL RDW Coeff of Cesar 13.1 (11.5-14.5) % Plt Count 224 (130-400) K/uL MPV 10.8 H (7.4-10.4) fL Immature Gran % (Auto) 0.1 % Neut % (Auto) 76.3 % Lymph % (Auto) 12.4 % [place] % (Auto) 7.5 % Eos % (Auto) 3.6 % Baso % (Auto) 0.1 % Immature Gran # (Auto) 0.01 (0.00-0.02) K/uL Neut # (Auto) 5.36 (1.4-6.5) K/uL Lymph # (Auto) 0.87 L (1.2-3.4) K/uL [place] # (Auto) 0.53 (0.11-0.59) K/uL Eos # (Auto) 0.25 (0-0.5) K/uL Baso # (Auto) 0.01 (0-0.2) K/uL Sodium 140 (136-145) mmol/L Potassium 3.9 (3.5-5.1) mmol/L Chloride 102 (98-107) mmol/L Carbon Dioxide 34 H (21-32) mmol/L Anion Gap 4.0 (3-11) BUN 11 (7-18) mg/dl Creatinine 1.01 (0.6-1.4) mg/dl Est Cr Clr Drug Dosing 94.0 ml/min Est GFR ( Amer) 88.8 Est GFR (Non-Af Amer) 76.6 BUN/Creatinine Ratio 10.5 (10-20) Glucose 84 (70-99) mg/dl Calcium 9.6 (8.5-10.1) mg/dl Total Bilirubin 0.4 (0.2-1) mg/dl AST 15 (15-37) U/L ALT 16 (12-78) U/L Alkaline Phosphatase 76 (45-117) U/L Total Protein 8.3 H (6.4-8.2) gm/dl Albumin 3.5 (3.4-5.0) gm/dl Globulin 4.8 H (2.5-4.0) gm/dl Albumin/Globulin Ratio 0.7 L (0.9-2) Lipase 120 (73-393) U/L Urine Color Red Urine Appearance Turbid A (Clear) Urine pH 7.5 (4.5-7.5) Ur Specific [place] 1.015 (1.000-1.030) Urine Protein 2+ H (Negative) Urine Glucose (UA) Negative (Negative) Urine Ketones 2+ H (Negative) Urine Blood 3+ H (Negative) Urine Nitrite Negative (Negative) Urine Bilirubin Negative (Negative) Urine Urobilinogen Negative (Negative) Ur Leukocyte Esterase 2+ H (Negative) Urine RBC >30 H (0-4) /hpf Urine WBC >30 H (0-5) /hpf Ur Epithelial Cells 0-5 (0-5) /lpf Urine Bacteria 3+ H (Negative) Medications Administered Discontinued Medications Sodium Chloride (Nss 1000ml) 1,000 mls @ 999 mls/hr IV .Q1H1M ONE Stop: 04/06/19 18:36 Last Infusion: 04/06/19 20:27 Dose: 0 mls/hr Documented by: [id number] Admin: 04/06/19 18:58 Dose: 999 mls/hr Documented by: [id number] Ceftriaxone Sodium (Rocephin) 1,000 mg in 50 mls @ 100 mls/hr IV NOW STA Stop: 04/06/19 19:53 Last Infusion: 04/06/19 20:28 Dose: 0 mls/hr Documented by: [id number] Admin: 04/06/19 19:26 Dose: 100 mls/hr Documented by: [id number] Morphine Sulfate (Morphine Sulfate) 4 mg IV NOW STA Stop: 04/06/19 17:37 Last Admin: 04/06/19 18:58 Dose: 4 mg Documented by: [id number] Ondansetron HCl (Zofran) 4 mg IV NOW STA Stop: 04/06/19 17:37 Last Admin: 04/06/19 18:58 Dose: 4 mg Documented by: [id number] Code Status & VTE Plan Code Status Full code VTE Prophylaxis Plan VTE Prophylaxis will be ordered: Yes Supervising Physician Co-Signing Physician Notes Patient seen and examined, chart reviewed, case discussed with Dr. See and I agree with his assessment and plan as documented above. Briefly, patient is a 68yo C male s/p C4 spinal injury from a horseback riding accident in 2010 resulting in quadriplegia. Patient resides at a halfway. He is wheelchair bound, neurogenic bladder with indwelling suprapubic catheter. Patient with nephrolithiasis s/p cystoscopy with laser lithotripsy and stent placement on 04/01. Mild to moderate amount of hematuria following the procedure which markedly increased today as well as passage of clots, occlusion of catheter requiring frequent flushing. On physical exam he is afebrile, hemodynamically stable, NAD, non-toxic in appearance Skin - warm, dry, intact HEENT - NC/AT, PERRL, neck supple, mmm Heart - +S1/S2, regular, no m/r/g Lungs - CTA anteriorly Abd - +BS, soft, NT/ND, suprapubic catheter in place, 200mL of light hematuria in the bag, no clots Ext - +edema Labs and images reviewed. Hg=16.2, Hct=47.7, UA with blood/protein/ketones CT Abdomen/Pelvis - right ureteral stent in place, no hydro. 9mm right renal pelvis calculus. Suprapubic catheter in place Assessment/Plan: 68yo C male quadriplegic s/p C4 injury, neurogenic bladder with suprapubic catheter in place, renal stones s/p extraction and stent placement now with worsening hematuria -Admit to medical floor -Monitor CBC -Flush catheter q 4 hours and PRN -Antibiotics -Remainder of plan as above PG Care Time/CCT Total # of Minutes Spent Total Time Spent with Patient: Total time spent is greater than 50% in coordination of care (as documented) at patient's floor/unit and/or counseling patient: Resident Activity Tracking Resident Involvement: Resident Care Provided Care Provided: Adult Hospital Medicine (1) Hematuria Hematuria type: unspecified type Qualified Code(s): R31.9 - Hematuria, unspecified (2) HTN (hypertension) Hypertension type: unspecified Qualified Code(s): I10 - Essential (primary) hypertension
[2019-04-06] MEDS ORDERED: MAGNESIUM HYDROXIDE SUSP 30 ML UDC PO PRN (22:32)
[2019-04-06] MEDS ORDERED: NYSTATIN CR 15 GM TUBE EXT PRN (22:32)
[2019-04-06] MEDS ORDERED: MoRPHine SULFATE 4 MG/ML 1 ML CARP\\VIAL IV PRN (22:32)
[2019-04-06] MEDS ORDERED: HYDROCODONE/ACETAMOPHEN 5/325MG TAB PO PRN (22:32)
[2019-04-06] MEDS ORDERED: ALUMINUM/MAGNESIUM SUSP 30 ML UDC PO PRN (22:32)
[2019-04-06] MEDS ORDERED: SODIUM CHLORIDE 0.65% NA SOLN 45 ML (OCEAN) PRN (22:32)
[2019-04-06] MEDS ORDERED: SOD PHOSPHATE/SOD BIPHOSPHATE ENEMA 132 ML BTL PR PRN (22:32)
[2019-04-06] MEDS ORDERED: ONDANSETRON INJ 2 MG/ML 2 ML VIAL IV PRN (22:32)
[2019-04-06] MEDS ORDERED: ACETAMINOPHEN 325 MG TAB PO PRN (22:49)
[2019-04-06] MEDS ORDERED: ALUMINUM/MAGNESIUM/SIMETH (MAALOX MAX) 30 ML UDC PO PRN (22:53)
[2019-04-06] MEDS: LACTATED RINGER'S 1,000 ML IV SCH (23:44)
[2019-04-06] MEDS: BACLOFEN 20 MG TAB PO SCH (23:57)
[2019-04-07] MEDS: BACLOFEN 20 MG TAB PO SCH ×4 (04:56→23:16)
[2019-04-07 06:04] LABS: Hematocrit (blood only) 39.3 % (42-52); Hemoglobin 12.7 g/dL (14.0-18.0)
[2019-04-07] MEDS ORDERED: AMLODIPINE BESYLATE 5 MG TAB PO SCH (09:00)
[2019-04-07] MEDS ORDERED: PARoxetine HCl 20 MG TAB PO SCH (09:00)
[2019-04-07] MEDS: cefUROXime axetil 500 MG TAB PO SCH ×2 (10:18→20:48)
[2019-04-07] MEDS: POTASSIUM CHLORIDE 10 MEQ TABCR PO SCH (10:18)
[2019-04-07] MEDS: LORATADINE 10 MG TAB PO SCH (10:18)
[2019-04-07] MEDS: DOCUSATE SODIUM 100 MG CAP PO SCH ×2 (10:18→20:48)
[2019-04-07] MEDS: GABAPENTIN 300 MG CAP PO SCH ×3 (10:19→20:48)
[2019-04-07] MEDS: CEROVITE ADV FORMULA TAB PO SCH (10:19)
[2019-04-07] MEDS: FUROSEMIDE 20 MG TAB PO SCH (10:19)
[2019-04-07] MEDS: POTASSIUM CITRATE 10 MEQ TAB PO SCH (10:20)
[2019-04-07] MEDS: CHOLECALCIFEROL 1,000 UNITS TAB PO SCH (10:20)
[2019-04-07] MEDS: LACTATED RINGER'S 1,000 ML IV SCH ×2 (10:23→21:09)
--- NOTE | 2019-04-07 12:59 | Urology Consultation ---
Date of Consultation April 07, 2019 Assessment & Plan (1) Neurogenic bladder: Patient with SP tube in place. Appears to be draining at this point. Severe gross hematuria issues over weekend with pain and discomfort. Appears to be somewhat improved today. Discussed options and due to plan to remove stent tomorrow and possible exacerbation of issues discussed at removal today. It was grasped by the string coming from the meatus gently pulled without any pain or issues and removed completely intact without concern. Patient tolerated this well at bedside. Discussed options for management and monitoring. Recommend symptom control. Will monitor for new or worsening UTI issues. Consider other options such as placing Evans catheter and running continuous irrigation from SP to catheter. However doing well at this point we will plan just to monitor. Imaging was reviewed by myself. Interpreted by myself. Very contracted bladder. Mild irritation around right kidney with stent migrated slightly distal at UPJ. History of Present Illness Attending Physician: Elisabet Downey MD History of Present Illness Patient transferred from [facility] where he is a resident with hematuria. Had recently had procedure for stone on right. Has stent in place. Has severely contracted bladder with SP tube in place. Has been intermittently having bleeding and gross hematuria and clot passage over the last few days. Has had a draining from the urethra as well as draining through catheter. Had undergone irrigation which helped at times but also may have exacerbated at other times. Had been restarted on his Xarelto. Had taken a dose yesterday and developed more significant bleeding and clots. Since has been monitored overnight with fairly good drainage. Catheter appears to be patent without major issues. It does have occasional blood clot passing through the urethra stPatient with poor sensation at baseline but no severe pain or discomfort currently. Stent has been bothersome but no severe problems otherwise. No severe back pain issues since the other night. Was having pain into the flank in waves when not draining well. Allergies Allergy/AdvReac Type Severity Reaction Status Date / Time ciprofloxacin Allergy Mild rash Verified 04/06/19 19:32 diazepam Allergy Mild rash Verified 04/06/19 19:32 gentamicin Allergy Mild rash Verified 04/06/19 19:32 ibuprofen Allergy Mild rash Verified 04/06/19 19:32 NSAIDS (Non-Steroidal Allergy Mild RASH Verified 04/06/19 19:32 Anti-Inflamma Quinolones Allergy Mild RASH Verified 04/06/19 19:32 Aminoglycosides Allergy Unknown "can't Verified 04/06/19 19:32 remember" Cipro Allergy Unknown rash Verified 09/04/17 12:40 Home Medications Home Medications Medication Instructions Recorded Confirmed Type Fleet Enema 118 ml [place] HS PRN 03/22/19 04/06/19 History Unicomplex-M 1 tab PO QAM 03/22/19 04/06/19 History Xarelto 15 mg PO QAM 03/22/19 04/06/19 History acetaminophen [Tylenol] 325 - 650 mg PO Q6H PRN 03/22/19 04/06/19 History alum-mag hydroxide-simeth [Antacid 30 ml PO BID PRN 03/22/19 04/06/19 History Anti-Gas] amlodipine 5 mg PO QAM 03/22/19 04/06/19 History baclofen 20 mg PO Q6H 03/22/19 04/06/19 History bisacodyl 10 mg [place] DAILY 03/22/19 04/06/19 History cholecalciferol (vitamin D3) 1,000 unit PO QAM 03/22/19 04/06/19 History [Vitamin D3] docusate sodium 100 mg PO BID 03/22/19 04/06/19 History furosemide 20 mg PO QAM 03/22/19 04/06/19 History gabapentin 300 mg PO TID 03/22/19 04/06/19 History loratadine 10 mg PO QAM 03/22/19 04/06/19 History magnesium hydroxide [Milk of 30 ml PO HS PRN 03/22/19 04/06/19 History Magnesia] nystatin 1 applic TOPICAL BID PRN 03/22/19 04/06/19 History paroxetine HCl 30 mg PO DAILY 03/22/19 04/06/19 History polyethylene glycol 3350 17 g PO Q2D 03/22/19 04/06/19 History potassium chloride 30 meq PO QAM 03/22/19 04/06/19 History potassium citrate 15 meq PO QAM 03/22/19 04/06/19 History ranitidine HCl 150 mg PO HS 03/22/19 04/06/19 History selenium sulfide 2.5 % TOPICAL UD 03/22/19 04/06/19 History simvastatin 20 mg PO HS 03/22/19 04/06/19 History sodium chloride [Saline Nasal] 1 spray INTRANASAL BID PRN 03/22/19 04/06/19 History tizanidine 4 mg PO HS 03/22/19 04/06/19 History cefuroxime axetil 500 mg PO BID 7 Days #14 tab 04/01/19 04/06/19 Rx hydrocodone-acetaminophen 1 tab PO Q6H PRN #15 tab 04/01/19 04/06/19 Rx Patient History Medical History Central cord syndrome Chronic pain GENERALIZED ALL OVER (PERIPHERAL NERVES) Deep vein thrombosis LEFT LEG (S/P THROWN OFF HORSE 2010) Hypertension Kidney stones Quadriplegia "PARTIAL". Incomplete quadriplegia. C4 lesion. s/p 2010 trauma. 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 LMA #5. No issues. 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 History of tooth extraction Previous back surgery FUSION C4 AND 5 Family History Mother Family hx colonic polyps Social History Preferred Language: South Korean Communication Ability: Effective Sfdc Architect Required: No Beliefs That Will Affect Care: None Current Living Situation: Retirement Current Living Situation Comment: [facility] Feels Safe at Home: Yes Safety Concerns: Feels Safe At This Time Smoking Status: Never smoker Second Hand Exposure: Yes ( A CHILD) ; Hx Alcohol Use: No Hx Substance Use: No Review of Systems Review of Systems: All systems reviewed & are unremarkable except as noted in HPI & below Physical Exam Physical Exam: General: Alert in no acute distress. HEENT: Normocephalic Atraumatic. Inspection normal. Cranial Nerves 2-12 Grossly intact. Normal inspection of face. Normal inspection of neck. Psychologic: Normal affect. Respiratory: Nonlabored. No use of accessory muscles. No tachypnea or dyspnea. Cardiovascular: No tachycardia Skin: [place] and Dry. No rashes or visible lesions. Extremities/Lymphatics: Moderate edema. Weakness and paraplegia at baseline. Abdomen: Obese and moderate distended. No rebound or guarding. SP tube in place draining dark red urine. patient with mild blood at meatus. Stent on string which was grasped and Evans removed intact without issue. Results & Data Vital Signs (Past 12 Hours) Vital Signs Temp Pulse Resp BP Pulse Ox 04/07/19 07:07 36.5 C 70 18 163/77 H 94 PG Care Time/CCT Total # of Minutes Spent Total Time Spent with Patient: Total time spent is greater than 50% in coordination of care (as documented) at patient's floor/unit and/or counseling patient:
[2019-04-07] MEDS: PARoxetine HCl 20 MG TAB PO SCH (13:30)
[2019-04-07] MEDS: bisacodyL 10 MG SUPP PR SCH ×3 (13:34→19:50)
--- NOTE | 2019-04-07 15:46 | Family Medicine Progress Note ---
Date of Service April 07, 2019 Assessment & Plan (1) Hematuria: 68-year-old male was admitted on 06 April 2019 for worsening hematuria and bladder clots. Hematuria, right-sided kidney stones: -PMH neurogenic bladder. 04/01 underwent cystoscopy, laser lithotripsy; placement of right ureteral stent -has a suprapubic catheter in place. Concerns for significant clot burden and ongoing hematuria overnight into this morning -continue cefuroxime 500 mg PO BID. (stop date of 04/08) for previously establish UTI -repeat urine cultures negative on 04/06 -Urology consulted: removed ureteral stent on 04/07 -remains off of anticoagulation. -monitor overnight. HTN: -continue home lasix -increased amlodipine to 10mg daily -monitor for increasing dependent edema given patient's quadriplegia HLD: -continue home simvastatin Quadriplegia: -PSH C5-7 anterior fusion: S/p horse riding accident in 2010 -Continue home baclofen, bisacodyl, docusate, Fleet enema as needed, gabapentin, [place], statin, Percocet, polyethylene glycol, tizanidine DVT, IVC filter placement: -will resume home xarelto in AM Recent sepsis, recurrent UTI: -was admitted in early February 2019 with sepsis at [facility] due to Pseudomonas UTI, GBS bacteremia. -repeat urine cultures negative (04/07) -will finish course of Cefuroxime started prior to admission given previous history Code: Full code. Diet: regular DVT prophy: Will resume home xarelto in AM (2) Nephrolithiasis: (3) Neurogenic bladder: (4) HTN (hypertension): (5) Hyperlipidemia: (6) Quadriplegia: (7) History of DVT (deep vein thrombosis): (8) Recurrent UTI (urinary tract infection): Supervising Physician Co-Signing Physician Notes Resident Physician Supervision Note: I independently interviewed and examined the patient and verified the thompson history and physical, reviewed labs and image studies, discussed the case with the resident Dr. Lara and agree with the findings and care plan. Subjective Pt continues to have bloody urine this morning, other than this has no new complaints since admission; feels that he is about his normal baseline at this point, with the exception of concern about the source of this new round of blood in his urine stent removed this morning with urology Review of Systems Constitutional: no fever, no chills and no sweats Respiratory: no cough and no dyspnea Cardiovascular: no chest pain, no palpitations and no lightheadedness Gastrointestinal: no nausea and no vomiting Results & Data Vital Signs (Past 12 Hours) Vital Signs Temp Pulse Resp BP Pulse Ox 04/07/19 15:12 37.0 C 84 18 144/68 H 90 04/07/19 07:07 36.5 C 70 18 163/77 H 94 Laboratory Results 04/07/19 04/06/19 04/06/19 Range/Units 05:36 18:07 18:06 WBC (4.8-10.8) K/uL RBC (4.7-6.1) M/uL Hgb 12.7 L D (14.0-18.0) g/dL Hct 39.3 L (42-52) % MCV (80-100) fL MCH (25-34) pg MCHC (32-36) g/dL RDW Std Deviation (36.4-46.3) fL RDW Coeff of Cesar (11.5-14.5) % Plt Count (130-400) K/uL MPV (7.4-10.4) fL Immature Gran % (Auto) % Neut % (Auto) % Lymph % (Auto) % Jackson % (Auto) % Eos % (Auto) % Baso % (Auto) % Immature Gran # (Auto) (0.00-0.02) K/uL Neut # (Auto) (1.4-6.5) K/uL Lymph # (Auto) (1.2-3.4) K/uL Jackson # (Auto) (0.11-0.59) K/uL Eos # (Auto) (0-0.5) K/uL Baso # (Auto) (0-0.2) K/uL Sodium 140 (136-145) mmol/L Potassium 3.9 (3.5-5.1) mmol/L Chloride 102 (98-107) mmol/L Carbon Dioxide 34 H (21-32) mmol/L Anion Gap 4.0 (3-11) BUN 11 (7-18) mg/dl Creatinine 1.01 (0.6-1.4) mg/dl Est Cr Clr Drug Dosing 94.0 ml/min Est GFR ( Amer) 88.8 Est GFR (Non-Af Amer) 76.6 BUN/Creatinine Ratio 10.5 (10-20) Glucose 84 (70-99) mg/dl Calcium 9.6 (8.5-10.1) mg/dl Total Bilirubin 0.4 (0.2-1) mg/dl AST 15 (15-37) U/L ALT 16 (12-78) U/L Alkaline Phosphatase 76 (45-117) U/L Total Protein 8.3 H (6.4-8.2) gm/dl Albumin 3.5 (3.4-5.0) gm/dl Globulin 4.8 H (2.5-4.0) gm/dl Albumin/Globulin Ratio 0.7 L (0.9-2) Lipase 120 (73-393) U/L Urine Color Red Urine Appearance Turbid A (Clear) Urine pH 7.5 (4.5-7.5) Ur Specific [place] 1.015 (1.000-1.030) Urine Protein 2+ H (Negative) Urine Glucose (UA) Negative (Negative) Urine Ketones 2+ H (Negative) Urine Blood 3+ H (Negative) Urine Nitrite Negative (Negative) Urine Bilirubin Negative (Negative) Urine Urobilinogen Negative (Negative) Ur Leukocyte Esterase 2+ H (Negative) Urine RBC >30 H (0-4) /hpf Urine WBC >30 H (0-5) /hpf Ur Epithelial Cells 0-5 (0-5) /lpf Urine Bacteria 3+ H (Negative) 04/06/19 Range/Units 18:06 WBC 7.03 (4.8-10.8) K/uL RBC 5.20 (4.7-6.1) M/uL Hgb 16.2 (14.0-18.0) g/dL Hct 47.7 (42-52) % MCV 91.7 (80-100) fL MCH 31.2 (25-34) pg MCHC 34.0 (32-36) g/dL RDW Std Deviation 44.1 (36.4-46.3) fL RDW Coeff of Cesar 13.1 (11.5-14.5) % Plt Count 224 (130-400) K/uL MPV 10.8 H (7.4-10.4) fL Immature Gran % (Auto) 0.1 % Neut % (Auto) 76.3 % Lymph % (Auto) 12.4 % Jackson % (Auto) 7.5 % Eos % (Auto) 3.6 % Baso % (Auto) 0.1 % Immature Gran # (Auto) 0.01 (0.00-0.02) K/uL Neut # (Auto) 5.36 (1.4-6.5) K/uL Lymph # (Auto) 0.87 L (1.2-3.4) K/uL Jackson # (Auto) 0.53 (0.11-0.59) K/uL Eos # (Auto) 0.25 (0-0.5) K/uL Baso # (Auto) 0.01 (0-0.2) K/uL Sodium (136-145) mmol/L Potassium (3.5-5.1) mmol/L Chloride (98-107) mmol/L Carbon Dioxide (21-32) mmol/L Anion Gap (3-11) BUN (7-18) mg/dl Creatinine (0.6-1.4) mg/dl Est Cr Clr Drug Dosing ml/min Est GFR ( Amer) Est GFR (Non-Af Amer) BUN/Creatinine Ratio (10-20) Glucose (70-99) mg/dl Calcium (8.5-10.1) mg/dl Total Bilirubin (0.2-1) mg/dl AST (15-37) U/L ALT (12-78) U/L Alkaline Phosphatase (45-117) U/L Total Protein (6.4-8.2) gm/dl Albumin (3.4-5.0) gm/dl Globulin (2.5-4.0) gm/dl Albumin/Globulin Ratio (0.9-2) Lipase (73-393) U/L Urine Color Urine Appearance (Clear) Urine pH (4.5-7.5) Ur Specific [place] (1.000-1.030) Urine Protein (Negative) Urine Glucose (UA) (Negative) Urine Ketones (Negative) Urine Blood (Negative) Urine Nitrite (Negative) Urine Bilirubin (Negative) Urine Urobilinogen (Negative) Ur Leukocyte Esterase (Negative) Urine RBC (0-4) /hpf Urine WBC (0-5) /hpf Ur Epithelial Cells (0-5) /lpf Urine Bacteria (Negative) Medications Administered Current Inpatient Medications Acetaminophen (Tylenol) 650 mg PO Q6H PRN PRN Reason: Pain Stop: 05/06/19 22:48 Hydrocodone Bitart/Acetaminophen ([place] 5/325) 1 tab PO Q6H PRN PRN Reason: pain Stop: 04/20/19 22:31 Last Admin: 04/07/19 13:29 Dose: 1 tab Documented by: Al Hydrox/Mg Hydrox/Simethicone (Maalox Max) 30 ml PO BID PRN PRN Reason: Gastric Reflux Stop: 05/06/19 22:52 Amlodipine Besylate (Norvasc) 5 mg PO QAM [facility] Stop: 05/07/19 08:59 Last Admin: 04/07/19 10:19 Dose: 5 mg Documented by: Baclofen (Lioresal) 20 mg PO Q6H [facility] Stop: 05/06/19 22:31 Last Admin: 04/07/19 10:20 Dose: 20 mg Documented by: Bisacodyl (Dulcolax) 10 mg OR DAILY [facility] Stop: 05/07/19 08:59 Last Admin: 04/07/19 13:58 Dose: Not Given Documented by: Cefuroxime Axetil (Ceftin) 500 mg PO BID [facility] Stop: 04/17/19 08:59 Last Admin: 04/07/19 10:18 Dose: 500 mg Documented by: Docusate Sodium (Colace) 100 mg PO BID [facility] Stop: 05/07/19 08:59 Last Admin: 04/07/19 10:18 Dose: 100 mg Documented by: Furosemide (Lasix) 20 mg PO QAM [facility] Stop: 05/07/19 08:59 Last Admin: 04/07/19 10:19 Dose: 20 mg Documented by: Gabapentin (Neurontin) 300 mg PO TID [facility] Stop: 05/07/19 08:59 Last Admin: 04/07/19 13:30 Dose: 300 mg Documented by: Lactated Ringer's (Lr) 1,000 mls @ 80 mls/hr IV .[id number] [facility] Stop: 05/06/19 22:31 Last Admin: 04/07/19 10:23 Dose: 80 mls/hr Documented by: Loratadine (Claritin) 10 mg PO QAM [facility] Stop: 05/07/19 08:59 Last Admin: 04/07/19 10:18 Dose: 10 mg Documented by: Magnesium Hydroxide (Milk Of Magnesia) 30 ml PO HS PRN PRN Reason: Constipation Stop: 05/06/19 22:31 Morphine Sulfate (Morphine Sulfate) 4 mg IV Q4H PRN PRN Reason: Pain Stop: 04/20/19 22:31 Last Admin: 04/07/19 07:38 Dose: 4 mg Documented by: Multivitamins/Minerals (Multivitamin W/ Minerals Tab) 1 tab PO QAM [facility] Stop: 05/07/19 08:59 Last Admin: 04/07/19 10:19 Dose: 1 tab Documented by: Nystatin (Nystatin) 1 appln EXT BID PRN PRN Reason: TO RASH AREA Stop: 05/06/19 22:31 Ondansetron HCl (Zofran) 4 mg IV Q4H PRN PRN Reason: Nausea Stop: 05/06/19 22:31 Paroxetine HCl (Paxil) 30 mg PO DAILY@1400 [facility] Stop: 05/07/19 13:59 Last Admin: 04/07/19 13:30 Dose: 30 mg Documented by: Polyethylene Glycol (Miralax Powder Packet) 17 gm PO Q2D [facility] Stop: 05/08/19 08:59 Potassium Chloride (Klor-Con M10) 30 meq PO QAM [facility] Stop: 05/07/19 08:59 Last Admin: 04/07/19 10:18 Dose: 30 meq Documented by: Potassium Citrate (Urocit-K) 15 meq PO QAM [facility] Stop: 05/07/19 08:59 Last Admin: 04/07/19 10:20 Dose: 15 meq Documented by: Ranitidine HCl (Zantac) 150 mg PO HS [facility] Stop: 05/07/19 20:59 Selenium Sulfide (Selsun 2.5%) 1 appln TOP MoWeFr [facility] Stop: 05/08/19 08:59 Simvastatin (Zocor) 20 mg PO HS [facility] Stop: 05/07/19 20:59 Sodium Biphosphate/Sodium Phosphate (Fleet Enema) 118 ml OR HS PRN PRN Reason: Constipation Stop: 05/06/19 22:31 Sodium Chloride ([place] Nasal) 1 sprays NA BID PRN PRN Reason: Nasal Congestion Stop: 05/06/19 22:31 Tizanidine HCl (Zanaflex) 4 mg PO HS [facility] Stop: 05/07/19 20:59 Vitamin D (Vitamin D3) 1,000 units PO QAM [facility] Stop: 05/07/19 08:59 Last Admin: 04/07/19 10:20 Dose: 1,000 units Documented by: PG Care Time/CCT Total # of Minutes Spent Total Time Spent with Patient: Total time spent is greater than 50% in coordination of care (as documented) at patient's floor/unit and/or counseling patient: Resident Activity Tracking Resident Involvement: Resident Care Provided Care Provided: Adult Hospital Medicine (1) Hematuria Hematuria type: unspecified type Qualified Code(s): R31.9 - Hematuria, unspecified (2) HTN (hypertension) Hypertension type: unspecified Qualified Code(s): I10 - Essential (primary) hypertension
[2019-04-07] MEDS ORDERED: SIMVASTATIN 20 MG TAB PO SCH (21:00)
[2019-04-07] MEDS ORDERED: TIZANIDINE HCL 4 MG TABLET PO SCH (21:00)
[2019-04-08] MEDS: BACLOFEN 20 MG TAB PO SCH ×3 (04:19→16:05)
[2019-04-08 06:35] LABS: Hematocrit (blood only) 38.1 % (42-52); Hemoglobin 12.6 g/dL (14.0-18.0)
[2019-04-08] MEDS: FUROSEMIDE 20 MG TAB PO SCH (07:48)
[2019-04-08] MEDS: POTASSIUM CITRATE 10 MEQ TAB PO SCH (07:49)
[2019-04-08] MEDS: cefUROXime axetil 500 MG TAB PO SCH (07:50)
[2019-04-08] MEDS: DOCUSATE SODIUM 100 MG CAP PO SCH (07:50)
[2019-04-08] MEDS: GABAPENTIN 300 MG CAP PO SCH ×2 (07:50→13:30)
[2019-04-08] MEDS: CEROVITE ADV FORMULA TAB PO SCH (07:51)
[2019-04-08] MEDS: POTASSIUM CHLORIDE 10 MEQ TABCR PO SCH (07:51)
[2019-04-08] MEDS: LORATADINE 10 MG TAB PO SCH (07:51)
[2019-04-08] MEDS: CHOLECALCIFEROL 1,000 UNITS TAB PO SCH (07:51)
[2019-04-08] MEDS ORDERED: AMLODIPINE BESYLATE 5 MG TAB PO SCH (09:00)
[2019-04-08] MEDS ORDERED: RIVAROXABAN 15 MG TAB PO SCH (09:00)
[2019-04-08] MEDS ORDERED: SELENIUM SULFIDE 2.5% LOTION 120 ML BTL TOP SCH (09:00)
[2019-04-08] MEDS ORDERED: POLYETHYLENE (MIRALAX) 17 GM PACK PO SCH (09:00)
[2019-04-08] MEDS: bisacodyL 10 MG SUPP PR SCH (10:51)
[2019-04-08] MEDS: LACTATED RINGER'S 1,000 ML IV SCH (10:51)
--- NOTE | 2019-04-08 10:56 | Urology Progress Note ---
Date of Service April 08, 2019 Assessment & Plan (1) Hematuria: 68 YO male with SP tube, recent right ureteral stone treatment with stent removal yesterday, with gross hematuria. Gross hematuria has resolved. UC&S negative. Outpatient URO follow up as scheduled 04/17/[address] Barclay. Thank you for allowing us to participate in the inpatient care of Mr. Germain. Please contact our service if we can assist further during hospitalization. (2) Neurogenic bladder: Subjective 68 YO male with SP tube, recent right ureteral stone treatment with stent removal yesterday, with gross hematuria. Patient resting comfortably upon exam this morning. No fevers/chills. No nausea/vomiting. SP patent, draining clear yellow urine. Review of Systems Review of Systems: Per HPI. Physical Exam Physical Exam: NAD. Resp effort normal. No JVD. Abd soft/nontender. : SP patent draining clear yellow urine. Normal affect. Results & Data Vital Signs (Past 12 Hours) Vital Signs Temp Pulse Resp BP Pulse Ox 04/08/19 07:21 36.7 C 76 18 175/88 H 94 04/07/19 23:36 36.5 C 66 18 112/52 L 93 PG Care Time/CCT Total # of Minutes Spent Total Time Spent with Patient: Total time spent is greater than 50% in coordination of care (as documented) at patient's floor/unit and/or counseling patient: (1) Hematuria Hematuria type: unspecified type Qualified Code(s): R31.9 - Hematuria, unspecified
[2019-04-08] MEDS ORDERED: cefUROXime axetil 500 MG TAB PO ONE (13:00)
[2019-04-08] MEDS: PARoxetine HCl 20 MG TAB PO SCH (13:31)
--- NOTE | 2019-04-08 20:58 | Discharge Summary ---
Date of Service April 08, 2019 Admission HPI Per Admitting Provider 68-year-old male presents via EMS from his nursing facility with concerns for significant bladder clot burden and suprapubic catheter obstruction. He has notable history of a horse riding accident in 2010 resulting in quadriplegia and neurogenic bladder. He has a suprapubic catheter in place. Most recently on April 01 underwent cystoscopy, laser lithotripsy, and extraction of stones with placement of ureteral stent by Dr. Barclay (urology). Patient noted this evening the need for increased frequency of bladder irrigation upwards of q 45 minutes with associated feeling of bladder fullness and a new onset of both bleeding and clots from his urethra. He restarted his Xarelto (history of DVT) on the . He denies any known fevers, feeling of illness, or discomfort outside of the region. - Past medical history includes quadriplegia following a horse riding accident in 2010, neurogenic bladder, hypertension, hyperlipidemia, hematuria, right- sided nephrolithiasis, prior DVT, recurrent UTI and urosepsis - Past surgical history includes C5-7 fusion, ureteral stent placement, suprapubic catheter placement, IVC filter - Social history includes never smoked. Occasional alcohol use. Lives in snf with occasional visits home to his . Admission Exam Per Admitting Provider GENERAL: Awake, alert, well-appearing overall, in no acute distress HENT: Normocephalic, atraumatic. Oropharynx unremarkable. EYES: Normal conjunctiva. Sclera non-icteric. NECK: Inspection normal. Non-tender. Supple and full ROM. No nuchal rigidity. CARDIAC: +S1S2 RRR, no murmurs. RESPIRATORY: Clear to auscultation. No wheezes or rales. Normal respiratory effort. GI: +BS, soft, non-distended. No tenderness to palpation. No rebound or guarding. Suprapubic catheter in place, draining dark pink urine. EXTREMITIES: Trace bilateral esparza edema. Bilateral compression stockings in place. NEURO: Patient has baseline right greater than left sided weakness and spasticity. He states his neuro status is at baseline to consist of the ability to move his arms and legs minimally, that he could walk with 1-2 person assistance, and that he has perhaps 50 to 70% decreased sensation compared to prior to his cervical spine injury. Principal Diagnosis Hematuria Quadriplegia HTN Recent sepsis, recurrent UTI Discharge Data Allergies Allergy/AdvReac Type Severity Reaction Status Date / Time ciprofloxacin Allergy Mild rash Verified 04/06/19 19:32 diazepam Allergy Mild rash Verified 04/06/19 19:32 gentamicin Allergy Mild rash Verified 04/06/19 19:32 ibuprofen Allergy Mild rash Verified 04/06/19 19:32 NSAIDS (Non-Steroidal Allergy Mild RASH Verified 04/06/19 19:32 Anti-Inflamma Quinolones Allergy Mild RASH Verified 04/06/19 19:32 Aminoglycosides Allergy Unknown "can't Verified 04/06/19 19:32 remember" Cipro Allergy Unknown rash Verified 09/04/17 12:40 Consultations 04/06/19 19:23 ED Decision to Admit Stat 04/06/19 22:32 Consult Urology Routine Ordered Studies 04/06/19 18:59 CT abd pelvis wo con Stat Hospital Course (1) Hematuria: 68-year-old male was admitted on 06 April 2019 for worsening hematuria and bladder clots. Hematuria, right-sided kidney stones (resolved) - PMH neurogenic bladder. 04/01 underwent cystoscopy, laser lithotripsy; placement of right ureteral stent - has a suprapubic catheter in place. - Concerns for significant clot burden initially - 04/07 Dr. Velasquez removed stent completely intact - urine cleared after procedure HTN: - continued home lasix during hospitalization - increased Amlodipine to 10mg daily - blood pressure 112/52 on discharge day, discharged on home dose of Amlodipine 5 mg HLD - continued home simvastatin 20 mg during hospitalization - discharged on home medication and dose Quadriplegia - PSH C5-7 anterior fusion: S/p horse riding accident in 2010 - Continued home baclofen, bisacodyl, docusate, Fleet enema as needed, gabapentin, [place], statin, Percocet, polyethylene glycol, tizanidine - discharged on home medications and doses DVT, IVC filter placement - held home Xarelto due to procedure during hospitalization - discharged back on home Xarelto Recent sepsis, recurrent UTI - was admitted in early February 2019 with sepsis at [facility] due to Pseudomonas UTI, GBS bacteremia. - repeat urine cultures negative (04/07) - finished course of Cefuroxime during hospitalization - no antibiotics on discharge Code: Full code. (2) Nephrolithiasis: (3) Neurogenic bladder: (4) HTN (hypertension): (5) Hyperlipidemia: (6) Quadriplegia: (7) History of DVT (deep vein thrombosis): (8) Recurrent UTI (urinary tract infection): Total Time Total Time Spent Total Time Spent (In Minutes): <30 Discharge Plan Discharge Items Patient Disposition: Transfer Snf Fac Reason For Visit: HEMATURIA Discharge Diagnosis: Hematuria resolved Activity: Per Instructions section Non-emergency contact: Primary Care Provider and Urologist Call non-emergency contact if: your symptoms worsen Follow-up/Referrals: Pal Child MD [Primary Care Provider] - Diet: Regular Addtl Attending Provider Instructions: You were admitted for blood in your urine, pain and discomfort likely due to your stent. You had pain and discomfort. We initially were treating you for a UTI, your cultures did not show a bacteria to treat. You were given antibiotics with the last pill given prior to discharge Changes over your hospital course included removal of your stent. Your amlodipine was increased over your hospital stay but we will be putting you back on your home dose when you go home. Follow up will be with your urologist on April 17. It will be important to also follow up with your primary doctor to discuss your hospital course. Warning signs include recurrence of blood in your urine, clots in your urine, increased pain, a decreased amount of urine. I you have any of these warning signs you will need to call or come in to be evaluated. Pending Studies at Discharge: No Stand-Alone Forms: My [facility] Skilled Items Patient informed of condition?: Yes DNR: No Discharge Level of Care: Skilled Communicable Disease: No Discharge Prognosis: Improving Lines: None Urinary Catheter: Yes Medications and DC Order Prescriptions: Continued polyethylene glycol 3350 17 gram Powder In Packet 17 g PO Q2D RF: 0 tizanidine 4 mg Tablet 4 mg PO HS RF: 0 amlodipine 5 mg Tablet 5 mg PO QAM RF: 0 baclofen 20 mg Tablet 20 mg PO Q6H RF: 0 potassium chloride 20 mEq Packet 30 meq PO QAM RF: 0 magnesium hydroxide [Milk of Magnesia] 400 mg/5 mL Suspension 30 ml PO HS PRN (Reason: Constipation) RF: 0 bisacodyl 10 mg Suppository 10 mg OK DAILY RF: 0 paroxetine HCl 30 mg Tablet 30 mg PO DAILY RF: 0 simvastatin 20 mg Tablet 20 mg PO HS RF: 0 nystatin 100,000 unit/gram Cream 1 applic TOPICAL BID PRN (Reason: TO RASH AREA) RF: 0 ranitidine HCl 150 mg Tablet 150 mg PO HS RF: 0 Fleet Enema 19-7 gram/118 mL Enema 118 ml OK HS PRN (Reason: Constipation) RF: 0 gabapentin 300 mg Capsule 300 mg PO TID RF: 0 furosemide 20 mg Tablet 20 mg PO QAM RF: 0 alum-mag hydroxide-simeth [Antacid Anti-Gas] 200-200-20 mg/5 mL Suspension 30 ml PO BID PRN (Reason: Gastric Reflux) RF: 0 docusate sodium 100 mg Tablet 100 mg PO BID RF: 0 loratadine 10 mg Tablet 10 mg PO QAM RF: 0 Unicomplex-M Tablet 1 tab PO QAM RF: 0 cholecalciferol (vitamin D3) [Vitamin D3] 1,000 unit Capsule 1,000 unit PO QAM RF: 0 sodium chloride [Saline Nasal] 0.65 % Aerosol,[place] 1 spray INTRANASAL BID PRN (Reason: Nasal Congestion) RF: 0 potassium citrate 15 mEq Tablet Extended Release 15 meq PO QAM RF: 0 Xarelto 15 mg Tablet 15 mg PO QAM RF: 0 acetaminophen [Tylenol] 325 mg Capsule 325 - 650 mg PO Q6H PRN (Reason: Pain) RF: 0 selenium sulfide 2.5 % Lotion 2.5 % TOPICAL UD RF: 0 hydrocodone-acetaminophen 5-325 mg tablet 1 tab PO Q6H PRN (Reason: pain) Qty: 15 RF: 0 Discharge Orders: Discharge Order (Routine); Ordered 04/08/19 Ordered By: Cody Flannery Admission Data Admit Date/Time: 04/06/19 21:25 Attending Provider: Meño Garcia Admit Provider: Cody See Primary Care Provider: Pal Child Other Providers: Katharine Chawla ; Mukund Velasquez II ; Elisabet Downey Other Interventions: Discharge Summary Assessment (RN) Last Done: 04/08/19 14:31 DC Date/Time DO NOT enter until pt leaves facility: 04/08/19 16:47 Supervising Physician Co-Signing Physician Notes I personally examined the patient and verified all thompson points of history and exam, discussed case, and agree with decision making with Dr Flannery. Feeling better. Would like to go home. Vitals noted, in general he is awake and alert pleasant no distress. HEENT normocephalic atraumatic mucous membranes moist. Breathing unlabored no accessory muscle use. Hematuriaimproved nicely. Stable for home. Close outpatient follow-up. Otherwise as above. Resident Activity Tracking Resident Involvement: Resident Care Provided Care Provided: Adult Hospital Medicine
== END 2019-04-08 16:47 ==
LOC: 4W 17:15 → ED 17:15 → SUATTDRO 21:25 → 4W 21:45

== ENCOUNTER 2023-03-07 10:34 | Observation (INO) ==
--- NOTE | 2023-02-03 11:29 | PAT Medication Instructions ---
Medication Instructions Date of Service February 03, 2023 Home Medications Medication Instructions Recorded potassium citrate 15 mEq (1,620 15 meq PO TID #180 tabs //20 mg) tablet,extended release amlodipine 5 mg tablet (Norvasc) 5 mg PO QAM baclofen 20 mg tablet 20 mg PO QID bisacodyl 10 mg rectal suppository 10 mg furosemide 20 mg tablet 30 mg PO QAM gabapentin 300 mg capsule 300 mg PO QAM loratadine 10 mg tablet 10 mg PO QAM paroxetine HCl 30 mg tablet (Paxil) 30 mg PO QAM polyethylene glycol 3350 17 gram oral powder packet 17 g PO QAM selenium sulfide 2.5 % lotion 2.5 % topical UD ECZEMA potassium citrate 15 mEq (1,620 mg) tablet,extended release 15 meq PO TID aspirin 81 mg tablet,delayed release 81 mg PO QAM melatonin 1 mg tablet 3 mg PO HS calcium citrate 250 mg PO UD Thera Silicone Cream 1 applic topical BID lisinopril 10 mg tablet 10 mg PO QAM ASK your prescriber and surgeon aspirin 81 mg tablet,delayed release 81 mg PO QAM STOP taking 24 hours before surgery selenium sulfide 2.5 % lotion 2.5 % topical UD ECZEMA Thera Silicone Cream 1 applic topical BID DO NOT take the morning of surgery baclofen 20 mg tablet 20 mg PO QID bisacodyl 10 mg rectal suppository 10 mg furosemide 20 mg tablet 30 mg PO QAM loratadine 10 mg tablet 10 mg PO QAM polyethylene glycol 3350 17 gram oral powder packet 17 g PO QAM potassium citrate 15 mEq (1,620 mg) tablet,extended release 15 meq PO TID calcium citrate 250 mg PO UD lisinopril 10 mg tablet 10 mg PO QAM Take morning of surgery With a small sip of water, OTHERWISE NOTHING TO EAT OR DRINK AFTER MIDNIGHT: amlodipine 5 mg tablet (Norvasc) 5 mg PO QAM gabapentin 300 mg capsule 300 mg PO QAM paroxetine HCl 30 mg tablet (Paxil) 30 mg PO QAM Take evening before surgery baclofen 20 mg tablet 20 mg PO QID potassium citrate 15 mEq (1,620 mg) tablet,extended release 15 meq PO TID melatonin 1 mg tablet 3 mg PO HS Other Notes If you have any questions please call us at [phone] or [phone] or [phone] or [phone]
--- NOTE | 2023-02-03 11:37 | Anesthesiology Consultation ---
Date of Service February 03, 2023 Assessment & Plan (1) Encounter for pre-operative examination: Plan - s/p cysto 05/17/22 LMA#5. - Per suspect artist on 02/03/2023: No known infectious disease contacts, current infectious disease symptoms in past 10 days or COVID positive test result in the past 90 days. Chart Review Chart Review: Acceptable Risk for Surgery and Patient NOT seen in Pre Admission Testing History Surgery Operation Date: 02/14/23 10:45 Proposed Procedures p Subrapubic Catheter Placement - Jordan Barclay MD Height/Weight Height: 6 ft 1 in Weight: 116.573 kg Allergies Allergy/AdvReac Type Severity Reaction Status Date / Time diazepam Allergy Mild rash Verified 02/03/23 10:55 gentamicin Allergy Mild rash Verified 02/03/23 10:55 ibuprofen Allergy Mild rash Verified 02/03/23 10:55 NSAIDS (Non-Steroidal Allergy Mild RASH Verified 02/03/23 10:55 Anti-Inflamma Quinolones Allergy Mild RASH Verified 02/03/23 10:55 Aminoglycosides Allergy Unknown "can't Verified 02/03/23 10:55 remember" ciprofloxacin [Cipro] Allergy Unknown rash Verified 02/03/23 10:55 Medications Home Medications Medication Instructions Recorded Confirmed Last Taken amlodipine 5 mg tablet (Norvasc) 5 mg PO QAM HTN 03/22/19 02/03/23 05/17/22 06:00 baclofen 20 mg tablet 20 mg PO QID MUSCLE SPASMS 03/22/19 02/03/23 05/16/22 06:00 bisacodyl 10 mg rectal suppository 10 mg NM DAILY CONSTIPATION 03/22/19 02/03/23 05/16/22 10:00 furosemide 20 mg tablet 30 mg PO QAM EDEMA 03/22/19 02/03/23 05/16/22 10:00 gabapentin 300 mg capsule 300 mg PO QAM NEUROPATHY 03/22/19 02/03/23 05/17/22 06:00 loratadine 10 mg tablet 10 mg PO QAM ALLRGIES 03/22/19 02/03/23 05/16/22 10:00 paroxetine HCl 30 mg tablet (Paxil) 30 mg PO QAM ANXIETY 03/22/19 02/03/23 05/16/22 22:00 polyethylene glycol 3350 17 gram 17 g PO QAM CONSTIPATION 03/22/19 02/03/23 05/02/22 09:00 oral powder packet selenium sulfide 2.5 % lotion 2.5 % topical UD ECZEMA 03/22/19 02/03/23 07/29/19 potassium citrate 15 mEq (1,620 15 meq PO TID #180 tabs 04/14/20 02/03/23 05/16/22 18:00 mg) tablet,extended release aspirin 81 mg tablet,delayed 81 mg PO QAM 04/28/22 02/03/23 05/14/22 09:00 release melatonin 1 mg tablet 3 mg PO HS 05/03/22 02/03/23 05/16/22 23:00 calcium citrate 250 mg PO UD 05/10/22 02/03/23 05/16/22 10:00 Thera Silicone Cream 1 applic topical BID scrotal area 02/03/23 02/03/23 Unknown lisinopril 10 mg tablet 10 mg PO QAM 02/03/23 02/03/23 Unknown Past Medical History Medical History Anxiety Central cord syndrome Chronic pain Generalized/diffuse Deep vein thrombosis LLE (after trauma/thrown off horse 2010) Depression GERD (gastroesophageal reflux disease) History of COVID-19 12/2021 > no symptoms, exposure to another resident Hypertension Nephrolithiasis Neurogenic bladder [facility] resident resident of [facility] Quadriplegia "Partial"/Incomplete quadriplegia (C4 lesion) s/p 2010 trauma Recurrent UTI (urinary tract infection) Situational depression Spinal cord injury C4/5 Partial paralysis below shoulders Suprapubic catheter Past Family History Family History Mother Family hx colonic polyps Past Surgical History Surgical History H/O hemorrhoidectomy History of arthroscopy LEFT KNEE History of colonoscopy History of cystoscopy MOST RECENT 04/2022>right Ureteronephroscopy, Laser lithotripsy stone, Insertion Right Stent Catheter(Right) History of lithotripsy 09/04/2017. LMA #5. No issues. 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 No issues noted per post-op anesthesia progress note. Previous back surgery FUSION C4 AND 5 Social History Smoking Status: Unknown if ever smoked Do You Dip or Chew Tobacco: No Alcohol type: hard liquor alcohol intake frequency: a few times a month Hx Substance Use: No substance use type: does not use Testing Laboratory Results 01/26/2023 WBC: 6.1 H/H: 15/48 PLATELETS: 251 SODIUM: 142 POTASSIUM: 3.9 CHLORIDE: 106 CO2: 31 BUN: 20 CREATININE: 1.2 GLUCOSE: 80 - Surgeon's office made aware no recent UA/urine culture. Electrocardiogram Date: 05/02/22 NSR, rate 66 bpm Left axis deviation Incomplete RBBB Chest X-Ray Date: 04/29/22 Mild left hemidiaphragm elevation Mild spondylosis mid to lower thoracic spine RUE PICC line No acute process Echocardiogram Date: 02/13/19 EF 55% Grade I diastolic dysfunction Mild mitral regurgitation
[~2023-03-07 10:34] MED LIST changes: -ACET-1693 PO; -ACETAMINOPHEN 325 MG TAB PO PRN; -ATROPINE SULFATE 0.1 MG/ML 5ML SYR IV PRN; -BACL10TA PO; -BISA10SU38 PR; -Bactrim PO; -CALC500C3 PO; -CEFA500C2 PO; -CEFTRIAXONE SOD INJ 1000 MG in DEXTROSE 5% 50ML IV SCH; -CHOL1CAP57 PO; -CLR10 PO; -Cysto-Conray II 17.2% 250ML BOTTLE ONE; -DEXAMETHASONE SOD INJ 4 MG/ML VIAL ONE; -EpHEDrine SULFATE 50MG/5ML SYR ONE; -EpHEDrine SULFATE INJ 50 MG/ML AMP IV PRN; -FENTANYL CITRATE INJ 50 MCG/1 ML 2 ML VIAL IV PRN; -FENTANYL CITRATE INJ 50 MCG/1 ML 2 ML VIAL ONE; -FLUT0.15 NAE; -FLX10 PO; -GABA-113 PO; -GLYCOPYRROLATE INJ 0.2 MG/ML VIAL ONE; +LACTATED RINGER'S 1,000 ML IV SCH; -LACTATED RINGER'S 1000ML 1,000 ML IV SCH; -LIDOCAINE HCL 2% 2 ML VIAL (20MG/ML) ONE; -LISI-725 PO; -LORA-741 PO; -LSX/40 PO; -MELA1CAP PO; -MIDAZOLAM HCL 1 MG/ML 2ML VIAL ONE; -MOML PO; -MULT-506 PO; -ONDANSETRON INJ 2 MG/ML 2 ML VIAL IV PRN; -ONDANSETRON INJ 2 MG/ML 2 ML VIAL ONE; -OXYC1TAB3 PO; -OXYCODONE/ACETAMINOPHEN 5-325 TAB PO PRN; -PARO30TA PO; -PHENYLEPHRINE HCL INJ 10 MG/ML VIAL ONE; +PIPERACILLIN IV SCH; -POLY335025; -POTA10CA28 PO; -PROMETHAZINE HCL INJ 6.25 MG in SODIUM CHLORIDE 0.9% 50ML 50 ML IV PRN; -PROPOFOL IV EMULSION 10 MG/ML 20 ML VIAL IV ONE; -RIVA1TAB4 PO; -SALI0.6510; -SIMV20TA2 PO; -SODIUM CHLORIDE 0.9% 1000ML 1,000 ML IV SCH; +TAZOBACTAM IV SCH; -ZNF/4 PO; -ZNT/150 PO
[2023-03-07] MEDS ORDERED: ATROPINE SULFATE 0.1 MG/ML 10ML SYR IV PRN (11:44)
[2023-03-07] MEDS ORDERED: ONDANSETRON INJ 2 MG/ML 2 ML VIAL IV PRN (11:44)
[2023-03-07] MEDS ORDERED: ePHEDrine sulfate 50 MG/ML AMP IV PRN (11:44)
--- NOTE | 2023-03-07 12:13 | History & Physical Bridge Note ---
Date of Service March 07, 2023 History & Physical Bridge Note I have examined the patient, reviewed the History & Physical and in the interval since the performance of the History & Physical I have noted the following changes of clinical significance: no changes noted
[2023-03-07] MEDS ORDERED: PROPOFOL IV EMULSION 10 MG/ML 20 ML VIAL IV ONE (12:19)
[2023-03-07] MEDS ORDERED: LIDOCAINE 2% 2 ML VIAL/AMP(20MG/ML) INFIL ONE (12:19)
[2023-03-07] MEDS ORDERED: fentaNYL citrate PF 100 MCG/2 ML VIAL ONE (12:20)
[2023-03-07] MEDS ORDERED: ePHEDrine sulfate 50 MG/ML AMP ONE (12:46)
[2023-03-07] MEDS ORDERED: ONDANSETRON INJ 2 MG/ML 2 ML VIAL ONE (13:06)
[2023-03-07] MEDS ORDERED: DEXAMETHASONE SOD INJ 4 MG/ML VIAL ONE (13:06)
--- NOTE | 2023-03-07 15:17 | Operative Report ---
PG Post Operative Report Pre & Post Diagnosis Operation Date: 03/07/23 12:55 Pre-Op Diagnosis: Neurogenic Bladder Right Nephrolithesis Recurrent Urinary Tract Infection Post-Op Diagnosis: Neurogenic Bladder Right Nephrolithesis Recurrent Urinary Tract Infection I identified the patient and participated in the time-out.: Yes Procedure Operation Date: 03/07/23 12:55 Actual Procedures p Suprapubic Catheter Placement(Not Applicable) - Jordan Barclay MD s Cystoscopy, Right Ureteronephroscopy, Right Retrograde Pyelogram, Laser Destruction of the Stone, Insertion of Right Stent Catheter (Right) - Jordan Barclay MD Surgeon Jordan Barclay MD Court Registry Officer none Estimated Blood Loss 5 Findings Consistent with Post-Op Diagnosis Specimens none Description of Procedure The patient was identified in the preoperative holding area, appropriate informed consents were reviewed and completed and the patient was transferred to the operative suite. Upon arrival, appropriate antibiotics and anesthesia were administered and the patient was placed in dorsal lithotomy position and prepped and draped in sterile fashion. To begin the case I passed a 22 Cameroonian cystoscope per urethra. Inspection revealed a healthy-appearing urethra and a high bladder neck which was somewhat challenging to advance the scope over. This is similar to his past experience in the cystoscopy suite. Upon entry into the bladder I was able to evaluate the mucosa and it was quite healthy. He has mild catheter related cystitis but no other abnormalities. The right ureteral orifice was identified and I cannulated it with a sensor wire a 10 Cameroonian double-lumen catheter and then subsequently a second wire. I remove the 10 Cameroonian double-lumen catheter in the scope and then reentered the bladder. I then turned my attention to replacement of his suprapubic tube. He has had a longstanding suprapubic tube but lost access around a month ago. I was able to utilize his prior SP tract in the past a spinal needle into the superior portion of the bladder. After confirming my path and trajectory I expanded his skin opening slightly and then passed an SP introducing trocar. After removing the inner portion of the trocar I had a return of clear urine. I then utilized the trocar to advance a 16 Cameroonian catheter into the bladder. Balloon was inflated with 10 cc of sterile water. It was sutured in place with a 3-0 nylon stitch. There were no complications to the suprapubic tube placement I then returned my attention to the right ureter and kidney. Utilizing the previously placed wires I advanced a flexible ureteral access sheath to the UPJ. I then advanced a flexible scope. Inspection revealed a tortuous proximal ureter but I was able to advance this into the kidney and I encountered several very large calculi sitting within the renal pelvis. I never could visualize the nephrostomy tube directly but I was in very close proximity to it based on fluoroscopic evaluation. I began by treating the largest stone as this was obscuring my view. Utilizing a 200 m thulium laser fiber we gradually worked her way through the first stone until it was entirely treated. The second stone was of similar size and was immediately behind the first. I was able to work through approximately three quarters of that stone before I elected to conclude the case. At that time he had been in lithotomy position for just over 2 hours and I thought that that was sufficient for today and did not want to risk blood clots given his prior history. I concluded my case by leaving the wire in the upper pole adjacent to the stones and performing a careful exit ureteroscopy. The ureter was healthy and the ureteral access sheath was extracted while extracting the scope. I placed a 6 x 26 cm double-J stent. There was good curl in the kidney as well as the bladder. No string was left attached. I emptied the bladder and attached to drainage bag to his suprapubic tube. Dressing was placed around the SP site and the case concluded. I suspect 85% of his stone was treated in this first settinghe responded very well to the thulium laser. I will plan to return in the near future to complete the treatment. We will leave the nephrostomy tube in place until the stone is completely treated. I attest to the content of the Intraoperative Record and any orders documented therein. Any exceptions are noted below.
[2023-03-07] MEDS: fentaNYL citrate PF 100 MCG/2 ML VIAL IV PRN ×4 (15:24→16:10)
--- NOTE | 2023-03-07 15:36 | Anesthesiology Progress Note ---
Date of Service March 07, 2023 Anesthesia Post Procedure Vital Signs Vital Signs: Temp Pulse Resp BP Pulse Ox O2 Del Method O2 Flow Rate 03/07/23 15:20 88 12 127/70 97 Oxymask 6 03/07/23 15:10 88 12 135/73 97 Oxymask 6 03/07/23 15:05 36.1 C L 89 12 102/52 L 97 Oxymask 6 03/07/23 11:21 36.7 C 68 20 150/66 H 95 Room Air Pain Intensity Abdomen: Pain Intensity: 9 Transfer of Care Handoff Completed per policy Notes Mental Status: alert / awake / arousable Patient Amnestic to Procedure: Yes Nausea / Vomiting: adequately controlled Pain: adequately controlled Airway Patency, RR, SpO2: stable & adequate BP & HR: stable & adequate Hydration State: stable & adequate Anesthetic Complications: no major complications apparent
[2023-03-07] MEDS ORDERED: ACETAMINOPHEN 325 MG TAB PO PRN (17:15)
[2023-03-07] MEDS ORDERED: SODIUM CHLORIDE 0.9% 1000ML 1,000 ML IV ONE (17:15)
--- NOTE | 2023-03-07 17:15 | Fluoroscopy Report ---
FL retrograde includes kub CLINICAL HISTORY: RIGHT RETROGRADE, LASER, STENT COMPARISON STUDY: CT of the abdomen and pelvis November 27, 2019 and July 21, 2021. FLUOROSCOPY TIME: 43 seconds. Ka, r: 18.19 mGy FLUOROSCOPIC IMAGES: 2 FINDINGS: Fluoroscopy was provided during right retrograde pyelogram and right ureteral stent placeme nt. Right ureteral stent is well-positioned. IVC filter is incidentally noted. Nephrostomy catheter i s incidentally noted. IMPRESSION: Fluoroscopy provided during right retrograde pyelogram and right ureteral stent insertio n. ACT 112: Negative or not required by law. Electronically signed by: Elier Clemens M.D. 03/07/2023 5:14 PM
[2023-03-07] MEDS: CALCIUM CITRATE 950 MG TAB PO SCH (18:06)
[2023-03-07] MEDS: BACLOFEN 20 MG TAB PO SCH ×2 (18:06→20:01)
[2023-03-07] MEDS: traMADol HCL 50 MG TABLET PO PRN (18:06)
[2023-03-07] MEDS: PIPERACILLIN/TAZOBACTAM 4.5 GM in DEXTROSE 5% 100 ML IV SCH (18:37)
[2023-03-07 18:42] LABS: Hemoglobin 14.2 g/dl (14.0-18.0); Mean Corpuscular Hemoglobin 30.1 pg (25.0-34.0); Mean Corpuscular Volume 91.3 fL (80.0-100.0); Mean Platelet Volume 10.7 fL (9.4-12.4); Platelet Count 217 K/uL (130-400); RDW Standard Deviation 47.3 fL (36.4-46.3); Red Blood Count 4.71 M/uL (4.70-6.10); White Blood Count 12.21 K/ul (4.8-10.8)
[2023-03-07 18:58] LABS: BUN Creatinine Ratio 20.2 (10-20); Est GFR (African American) 74.6 ml/min; Est GFR (Non-African American) 64.3 ml/min; Potassium 4.3 mmol/L (3.5-5.1)
[2023-03-07 19:08] LABS: Basophils # (auto) 0.03 K/uL (0.00-0.20); Basophils % (auto) 0.2 %; Eosinophils # (auto) 0.01 K/uL (0.00-0.50); Eosinophils % (auto) 0.1 %; Immature Granulocytes # (auto) 0.04 K/uL (0.01-0.20); Immature Granulocytes % (auto) 0.3 %; Lymphocytes # (auto) 0.33 K/uL (1.20-3.40); Lymphocytes % (auto) 2.7 %; Monocytes # (auto) 0.21 K/uL (0.11-0.59); Monocytes % (auto) 1.7 %; Neutrophils # (auto) 11.59 K/uL (1.40-6.50)
[2023-03-07] MEDS: POTASSIUM CITRATE 10 MEQ TAB PO SCH (20:01)
[2023-03-07] MEDS: HEPARIN SOD 5,000 UNIT/0.5 ML VIAL SQ SCH (20:01)
[2023-03-07] MEDS ORDERED: MELATONIN 3 MG TAB PO SCH (21:00)
[2023-03-08] MEDS: PIPERACILLIN/TAZOBACTAM 4.5 GM in DEXTROSE 5% 100 ML IV SCH ×2 (02:42→09:46)
[2023-03-08] MEDS: traMADol HCL 50 MG TABLET PO PRN ×3 (04:29→12:43)
[2023-03-08] MEDS: HEPARIN SOD 5,000 UNIT/0.5 ML VIAL SQ SCH (05:38)
[2023-03-08 06:38] LABS: Basophils # (auto) 0.01 K/uL (0.00-0.20); Basophils % (auto) 0.1 %; Hematocrit (blood only) 38.7 % (42.0-52.0); Hemoglobin 12.7 g/dl (14.0-18.0); Immature Granulocytes # (auto) 0.21 K/uL (0.01-0.20); Immature Granulocytes % (auto) 2.1 %; Lymphocytes # (auto) 0.44 K/uL (1.20-3.40); Lymphocytes % (auto) 4.4 %; Mean Corpuscular Hemoglobin 29.6 pg (25.0-34.0); Mean Corpuscular Hgb Conc 32.8 g/dL (32.0-36.0); Mean Corpuscular Volume 90.2 fL (80.0-100.0); Mean Platelet Volume 11.2 fL (9.4-12.4); Monocytes # (auto) 0.48 K/uL (0.11-0.59); Monocytes % (auto) 4.8 %; Neutrophils # (auto) 8.79 K/uL (1.40-6.50); Neutrophils % (auto) 88.6 %; Platelet Count 223 K/uL (130-400); RDW Coefficient of Variation 14.3 % (11.5-14.5); RDW Standard Deviation 47.2 fL (36.4-46.3); Red Blood Count 4.29 M/uL (4.70-6.10); White Blood Count 9.93 K/ul (4.8-10.8)
[2023-03-08 06:45] LABS: BUN Creatinine Ratio 20.8 (10-20); Calcium 9.1 mg/dl (8.6-10.3); Creatinine Clr Calc Pharmacy 67.5 ml/min; Est GFR (African American) 66.7 ml/min; Est GFR (Non-African American) 57.6 ml/min; Potassium 4.6 mmol/L (3.5-5.1)
--- NOTE | 2023-03-08 08:06 | Urology Progress Note ---
Date of Service March 08, 2023 Assessment & Plan (1) Neurogenic bladder: (2) Nephrolithiasis: Plan Postop day #1 status post suprapubic tube placement and right ureteroscopy and laser lithotripsy Doing well now Plan for discharge home later this morning Will return for second surgery to clear the remaining stone from his kidney in the near future Admission and Anticipated Discharge Date Admission Date: March 07, 2023 Subjective Some suprapubic pain overnight but otherwise feeling relatively well Good urine output Labs are stable Tolerated his surgery well and his nephrostomy tube and SP tube are both draining Physical Exam Physical Exam: SP site is healthy There are some small clots within the tubing, but his urine seems to be clearing appropriately Right nephrostomy tube is draining relatively clear urine He feels well overall and is anxious to go home Results & Data Vital Signs (Past 12 Hours) Vital Signs Temp Pulse Pulse Resp BP BP Pulse Ox 03/08/23 07:09 36.7 C 75 16 164/74 H 93 03/08/23 04:40 36.6 C 74 18 154/81 H 95 03/07/23 20:07 O2 Del Method O2 Flow Rate 03/08/23 07:09 Room Air 03/08/23 04:40 Room Air 03/07/23 20:07 Nasal Cannula 2 PG Care Time/CCT Total # of Minutes Spent Total Time Spent with Patient: Total time spent is greater than 50% in coordination of care (as documented) at patient's floor/unit and/or counseling patient: Coding Level of Care Code None Diagnoses Neurogenic bladder N31.9 Nephrolithiasis N20.0
--- NOTE | 2023-03-08 08:34 | Discharge Summary ---
Date of Service March 08, 2023 Admission HPI Per Admitting Provider Patient with neurogenic bladder, recurrent urinary tract infection and right nephrolithiasis here for right ureteroscopy and laser lithotripsy with concurrent suprapubic tube placement. Admission Exam Per Admitting Provider Quadriplegia, wheelchair-bound Does move all 4 extremities but with limited range and strength PICC line in place Nephrostomy tube in place Evans catheter in place Principal Diagnosis Neurogenic bladder, right nephrolithiasis Discharge Exam General: no acute distress HEENT: Normocephalic Pulmonary: Nonlabored respirations Abdomen: Nondistended Psych: alert and oriented, normal mood : SP site is healthy. There are some small clots within the tubing, but his urine seems to be clearing appropriately. Right nephrostomy tube is draining relatively clear urine. Discharge Data Allergies Allergy/AdvReac Type Severity Reaction Status Date / Time diazepam Allergy Mild rash Verified 03/07/23 11:24 gentamicin Allergy Mild rash Verified 03/07/23 11:24 ibuprofen Allergy Mild rash Verified 03/07/23 11:24 NSAIDS (Non-Steroidal Allergy Mild RASH Verified 03/07/23 11:24 Anti-Inflamma Quinolones Allergy Mild RASH Verified 03/07/23 11:24 Aminoglycosides Allergy Unknown "can't Verified 03/07/23 11:24 remember" ciprofloxacin [Cipro] Allergy Unknown rash Verified 03/07/23 11:24 Procedures Performed Operation Date: 03/07/23 12:55 Actual Procedures p Suprapubic Catheter Placement(Not Applicable) - Jordan Barclay MD s Cystoscopy, Right Ureteronephroscopy, Right Retrograde Pyelogram, Laser Destruction of the Stone, Insertion of Right Stent Catheter (Right) - Jordan Barclay MD Ordered Studies 03/07/23 FL retrograde includes kub Routine Hospital Course (1) Neurogenic bladder: (2) Nephrolithiasis: Plan Postop day #1 status post suprapubic tube placement and right ureteroscopy and laser lithotripsy Doing well now Plan for discharge home later this morning Will return for second surgery to clear the remaining stone from his kidney in the near future Total Time Total Time Spent Total Time Spent (In Minutes): 29 Discharge Plan Discharge Items Patient Disposition: Transfer [facility] Reason For Visit: Neurogenic Bladder Recurrent UTI Discharge Diagnosis: Neurogenic bladder recurrent UTI Activity: Per Instructions section Lifting: No more than 10 pounds Bathing Comment: Okay to shower, no tub bath or soaking Sexual Activity: Wait until after follow-up appointment Exercise/Sports: Wait until after follow-up appointment Non-emergency contact: Surgeon and Urologist Call non-emergency contact if: your pain is not controlled, your temperature is above 101, your wound has increased redness, your wound has increased drainage and your wound pain has increased Follow-up/Referrals: Dang Pritchett, DO [Primary Care Provider] - Diet: Regular Addtl Attending Provider Instructions: Please take all medications as prescribed and keep all follow-ups as scheduled. Please call our office at [phone] with any questions, concerns or need to reschedule appointments for any reason. We are happy to assist you Activity: We recommend having someone with you for the first few days after surgery to help care for you. Don't lift anything heavier than 10 pounds until your follow-up appointment. Please avoid long car rides. Home Care: Unless directed otherwise, drink 6 to 8 glasses of water a day (enough to keep your urine light colored). This will also help keep a healthy flow of urine. We recommend using a stool softener for the first two weeks to avoid constipation. Evans Catheter or Suprapubic Catheter care: Keep the catheter well secured with either a leg back or leg strap with large bag. Empty your bag when it's about half full. You may notice some blood in the bag. This is normal after surgery and while the catheter is in place. Use mild soap (such as Dove or Dial) and water to wash the catheter and the head of your penis daily, or more frequently if needed. Return to your normal diet, we encourage good protein intake to promote healing. You may shower as normal. Please avoid tub baths or soaking until catheter removed and incisions well healed. Wearing sweat pants while you have the catheter is recommended, they will be more comfortable. Please take all medications as prescribed and keep all follow- ups as scheduled. Please call our office at [phone] with any questions, concerns or need to reschedule appointments for any reason. We are happy to assist you. While you have a ureteral stent in place: Some discomfort is normal. Certain movements may trigger pain or a feeling that you need to urinate. You may also feel mild soreness or pressure before or during urination. These symptoms should go away a few days after the stent is removed. Your urine may be slightly pink or red. This is due to bleeding caused by minor irritation from the stent. This may happen on and off while you have the stent, it is not harmful and is to be expected. Medication to help minimize discomfort or bladder spasms, or to prevent infection may be prescribed. Take this as directed. Drink plenty of fluids to help flush out your urinary tract. Call [facility] at [phone] right away if you have any of the following: Chest pain or trouble breathing (call 911 or go to the hospital) Fever of 101F or higher, uncontrolled vomiting Heavy bleeding, clots, or bright red blood from the catheter Catheter that falls out or stops draining Foul-smelling discharge from your catheter Redness, swelling, warmth, or increased pain at your incision site Drainage, pus, or bleeding from your incision Pending Studies at Discharge: No Stand-Alone Forms: My [facility] [employer] Smoking Cessation Skilled Items Patient informed of condition?: Yes DNR: No Discharge Level of Care: Skilled Communicable Disease: No Discharge Prognosis: Stable Lines: None Urinary Catheter: Yes (Suprapubic catheter) Medications and DC Order Prescriptions: Continued potassium citrate 15 mEq tablet extended release 15 meq PO TID Qty: 180 3RF polyethylene glycol 3350 17 gram Powder In Packet 17 g PO QAM amlodipine [Norvasc] 5 mg Tablet 5 mg PO QAM baclofen 20 mg Tablet 20 mg PO QID bisacodyl 10 mg Suppository 10 mg ND DAILY Rx Instructions: HOLD FOR LOOSE STOOLS paroxetine HCl [Paxil] 30 mg Tablet 30 mg PO QAM gabapentin 300 mg Capsule 300 mg PO QAM furosemide 20 mg Tablet 30 mg PO QAM loratadine 10 mg Tablet 10 mg PO QAM selenium sulfide 2.5 % Lotion 2.5 % TOPICAL UD Rx Instructions: APPLY TO HEAD 2X WEEKLY aspirin 81 mg Tablet,Delayed Release (Dr/Ec) 81 mg PO QAM melatonin 1 mg Tablet 3 mg PO HS lisinopril 10 mg Tablet 10 mg PO QAM Thera Silicone Cream 1 applic topical BID tramadol 50 mg Tablet 50 mg PO Q4 PRN (Reason: Pain) calcium citrate 250 mg calcium Tablet 250 mg PO UD Rx Instructions: 4 TABLETS DAILY Discharge Orders: Discharge Order (Routine); Ordered 03/08/23 Ordered By: Teena Cazares/Other Patient Handouts: Suprapubic Catheter Dc Admission Data Admit Date/Time: 03/07/23 15:02 Attending Provider: Jordan Barclay Admit Provider: Jordan Barclay Primary Care Provider: Dang Pritchett Other Interventions: Discharge Summary Assessment (RN) Last Done: 03/08/23 08:01 Coding Level of Care Code 18074 IN/OBS DISCH 30 MIN/LESS Diagnoses Neurogenic bladder N31.9 Nephrolithiasis N20.0
[2023-03-08] MEDS: CALCIUM CITRATE 950 MG TAB PO SCH (08:41)
[2023-03-08] MEDS: POTASSIUM CITRATE 10 MEQ TAB PO SCH (08:41)
[2023-03-08] MEDS: BACLOFEN 20 MG TAB PO SCH ×2 (08:41→12:43)
[2023-03-08] MEDS ORDERED: ASPIRIN 81 MG ECTAB PO SCH (09:00)
[2023-03-08] MEDS ORDERED: FUROSEMIDE 20 MG TAB PO SCH (09:00)
[2023-03-08] MEDS ORDERED: PARoxetine HCL 10 MG TAB PO SCH (09:00)
[2023-03-08] MEDS ORDERED: bisacodyL 10 MG SUPP PR SCH (09:00)
[2023-03-08] MEDS ORDERED: GABAPENTIN 300 MG CAP PO SCH (09:00)
[2023-03-08] MEDS ORDERED: lisinopril 10 MG TAB PO SCH (09:00)
[2023-03-08] MEDS ORDERED: POLYETHYLENE (MIRALAX) 17 GM PACK PO SCH (09:00)
[2023-03-08] MEDS ORDERED: amLODIPine BESYLATE 5 MG TAB PO SCH (09:00)
[2023-03-08] MEDS ORDERED: LORATADINE 10 MG TAB PO SCH (09:00)
--- OUTSIDE RECORDS SUMMARY | 2023-03-09 21:11 | External Medical Summary | Continuity Of Care Document ---
Author Name Unknown Address [address] [place] [address] Organization [facility] () Care Team Providers Care Manager Actuarial Name Role Phone DO Pritchett Amy Primary Care Provider [phone] VITAL SIGNS Date Time Diastolic blood pressure Systolic blood pressure Body height Body weight Temperature SpO2 Blood Sugar Pulse Respirations 36950 814 28896 9 79.00 mm[Hg] - Sitting 125.00 mm[Hg] - Sitting 96.90 Forehead Scan 95.00 % 79.00/ min 67270 814 19722 4 65.00 mm[Hg] - Sitting 131.00 mm[Hg] - Sitting 99.30 Forehead Scan 94.00 % 86.00/ min 86013 814 94405 6 244.40 NI Immunizations Vaccine Date Status COVID-19 08/02/2020 Completed COVID-19 08/23/2020 Completed COVID-19 05/11/2021 Completed COVID-19 06/16/2022 Completed Influenza 05/07/2014 Completed Influenza 05/13/2015 Completed Influenza 05/06/2016 Completed Influenza 04/20/2017 Completed Influenza 04/27/2018 Completed Influenza 04/09/2020 Completed Influenza 05/26/2021 Completed Influenza 04/13/2022 Completed (PCV13)Pneumococcal 07/25/2017 Completed (PPSV23)Pneumococcal 03/20/2009 Completed
--- OUTSIDE RECORDS SUMMARY | 2023-03-09 21:11 | External Medical Summary | Continuity Of Care Document ---
Author Name Unknown Address [address] [place] [address] Organization [facility] () Care Team Providers Care Mail Censor Name Role Phone DO Yarely Dang Primary Care Provider [phone] Problems Code Description Start Date End Date Status A41.02 Sepsis due to Methic illin resistant Staphylococcus aureus 02/20/2023 Active N20.0 Calculus of kidney 02/20/2023 Active N39.0 Urinary tract infection, site not specified Active R31.0 Gross hematuria 04/08/2019 Active G82.52 Quadriplegia, C1-C4 incomplete 04/08/2019 Active R53.1 Weakness 04/08/2019 Active Z87.440 Personal history of urinary (tract) infections 04/08/2019 Active I11.9 Hypertensive heart d isease without heart failure 04/08/2019 Active E78.5 Hyperlipidemia, unspecified 04/08/2019 00 Active K21.9 Gastro-esophageal re flux disease without esophagitis 04/08/2019 Active Z86.718 Personal history of other venous thrombosis and embolism 04/08/2019 Active Z46.6 Encounter for fittin g and adjustment of urinary device 04/08/2019 Active Z79.01 residential (current) use of anticoagulants 04/08 Active N31.9 Neuromuscular dysfun ction of bladder, unspecified 04/08/2019 Active S82.201D Unspecified fracture of shaft of right tibia, subsequent encounter for closed fracture with routine healing 06/12/2019 Active R53.1 Weakness 08/01/2019 Active M62.81 Muscle weakness (generalized) 12/20/2019 00/00/ 0000 Active VITAL SIGNS Date Time Diastolic blood pressure Systolic blood pressure Body height Body weight Temperature SpO2 Blood Sugar Pulse Respirations 814 40394 9 79.00 mm[Hg] - Sitting 125.00 mm[Hg] - Sitting 96.90 Forehead Scan 95.00 % 79.00/ min 10962 814 26250 4 65.00 mm[Hg] - Sitting 131.00 mm[Hg] - Sitting 99.30 Forehead Scan 94.00 % 86.00/ min 43785 814 15877 6 244.40 [place] [id number] 815 28550 6 244.40 [place] [address]41 815 34841 7 62.00 mm[Hg] - Sitting 114.00 mm[Hg] - Sitting 96.90 Tympanic 95.00 % 77.00/ min 79688 815 10352 0 59.00 mm[Hg] - Sitting 108.00 mm[Hg] - Sitting 97.80 Tympanic 96.00 % 81.00/ min Immunizations Vaccine Date Status COVID-19 08/02/2020 Completed COVID-19 08/23/2020 Completed COVID-19 05/11/2021 Completed COVID-19 06/16/2022 Completed Influenza 05/07/2014 Completed Influenza 05/13/2015 Completed Influenza 05/06/2016 Completed Influenza 04/20/2017 Completed Influenza 04/27/2018 Completed Influenza 04/09/2020 Completed Influenza 05/26/2021 Completed Influenza 04/13/2022 Completed (PCV13)Pneumococcal 07/25/2017 Completed (PPSV23)Pneumococcal 03/20/2009 Completed
--- OUTSIDE RECORDS SUMMARY | 2023-03-09 21:11 | External Medical Summary | Continuity Of Care Document ---
Author Name Unknown Address [address] Shereen jessenia [place] Bianchi [address] Organization [facility] () Care Team Providers Care Turner Off Name Role Phone DO Pritchett Amy Primary Care Provider [phone] VITAL SIGNS Date Time Diastolic blood pressure Systolic blood pressure Body height Body weight Temperature SpO2 Blood Sugar Pulse Respirations 45324 814 35953 9 79.00 mm[Hg] - Sitting 125.00 mm[Hg] - Sitting 96.90 Forehead Scan 95.00 % 79.00/ min 30023 814 14911 4 65.00 mm[Hg] - Sitting 131.00 mm[Hg] - Sitting 99.30 Forehead Scan 94.00 % 86.00/ min 23015 814 78597 6 244.40 NI Immunizations Vaccine Date Status COVID-19 08/02/2020 Completed COVID-19 08/23/2020 Completed COVID-19 05/11/2021 Completed COVID-19 06/16/2022 Completed Influenza 05/07/2014 Completed Influenza 05/13/2015 Completed Influenza 05/06/2016 Completed Influenza 04/20/2017 Completed Influenza 04/27/2018 Completed Influenza 04/09/2020 Completed Influenza 05/26/2021 Completed Influenza 04/13/2022 Completed (PCV13)Pneumococcal 07/25/2017 Completed (PPSV23)Pneumococcal 03/20/2009 Completed
--- OUTSIDE RECORDS SUMMARY | 2023-03-09 21:12 | External Medical Summary | Continuity Of Care Document ---
Author Name Unknown Address [address] [place] [address] Organization [facility] () Care Team Providers Care Regulatory Affairs Manager Name Role Phone Pal Child Primary Care Provider [phone] Problems Code Description Start Date End Date Status A40.1 Sepsis due to streptococcus, group B 01/29/2020 Active R53.1 Weakness 01/29/2020 Active R26.2 Difficulty in walkin g, not elsewhere classified 01/29/2020 Active L03.115 Cellulitis of right lower limb 01/29/2020 Active G82.52 Quadriplegia, C1-C4 incomplete 01/29/2020 Active R33.9 Retention of urine, unspecified 01/29/2020 Active K21.9 Gastro-esophageal re flux disease without esophagitis 01/29/2020 Active I11.9 Hypertensive heart d isease without heart failure 01/29/2020 Active E66.09 Other obesity due to excess calories 01/29/2020 Active E78.2 Mixed hyperlipidemia 01/29/2020 Acti ve N31.9 Neuromuscular dysfun ction of bladder, unspecified 01/29/2020 Active Z87.440 Personal history of urinary (tract) infections 01/29/2020 Active Z86.718 Personal history of other venous thrombosis and embolism 01/29/2020 Active Z46.6 Encounter for fittin g and adjustment of urinary device 01/29/2020 Active Z79.01 M[facility] (current) use of anticoagulants 01/28 Active M62.838 Other muscle spasm 03/16/2022 Active B34.2 Coronavirus infection, unspecified 03/04/2020 0 03/08/2020 Completed Z86.19 Personal history of other infectious and parasitic diseases 03/09/2020 Active U07.1 COVID-19 03/04/2020 08/30/2021 Completed U07.1 COVID-19 08/25/2021 Active D23.5 Other benign neoplasm of skin of trunk 09/25/19 Active M62.81 Muscle weakness (generalized) 11/02/2021 Active R26.2 Difficulty in walkin g, not elsewhere classified 11/02/2021 Active M62.81 Muscle weakness (generalized) 12/27/2021 Active R26.2 Difficulty in walkin g, not elsewhere classified 12/27/2021 Active M25.611 Stiffness of right s houlder, not elsewhere classified 03/15/2022 Active M62.511 Muscle wasting and a trophy, not elsewhere classified, right shoulder 03/15/2022 Active VITAL SIGNS Date Time Diastolic blood pressure Systolic blood pressure Body height Body weight Temperature SpO2 Blood Sugar Pulse Respirations 18012 906 93349 9 248.00 [place] [address] 001 97323 0 249.00 NI 17872 001 66957 0 249.00 NI 001 46470 0 88713 005 72686 4 99.00 Tympanic Immunizations Vaccine Date Status COVID-19 08/02/2020 Completed COVID-19 08/23/2020 Completed COVID-19 05/11/2021 Completed Influenza 05/07/2014 Completed Influenza 05/13/2015 Completed Influenza 05/06/2016 Completed Influenza 04/20/2017 Completed Influenza 04/27/2018 Completed Influenza 04/09/2020 Completed Influenza 05/26/2021 Completed (PCV13)Pneumococcal 07/25/2017 Completed (PPSV23)Pneumococcal 03/20/2009 Completed
--- OUTSIDE RECORDS SUMMARY | 2023-03-09 21:12 | External Medical Summary | Continuity Of Care Document ---
Author Name Unknown Address [address] [place] [address] Organization [facility] () Care Team Providers Care Boiling House Oiler Name Role Phone Pal Child Primary Care Provider [phone] Problems Code Description Start Date End Date [...] adjustment of urinary device 01/29/2020 Active Z79.01 prison (current) use of anticoagulants 01/28 Active M62.838 [...] weight Temperature SpO2 Blood Sugar Pulse Respirations 00730 201 48055 3 86.00 mm[Hg] - Sitting 139.00 mm[Hg] - Sitting 247.20 NI 97.10 Tympanic 75.00/ min 19.00/min Immunizations Vaccine Date Status COVID-19 08/02/2020 Completed COVID-19 08/23/2020 Completed COVID-19 05/11/2021 Completed COVID-19 06/16/2022 Completed Influenza 05/07/2014 Completed Influenza 05/13/2015 Completed Influenza 05/06/2016 Completed Influenza 04/20/2017 Completed Influenza 04/27/2018 Completed Influenza 04/09/2020 Completed Influenza 05/26/2021 Completed Influenza 04/13/2022 Completed (PCV13)Pneumococcal 07/25/2017 Completed (PPSV23)Pneumococcal 03/20/2009 Completed
--- OUTSIDE RECORDS SUMMARY | 2023-03-09 21:12 | External Medical Summary | Continuity Of Care Document ---
Author Name Unknown Address [address] [place] [address] Organization [facility] () Care Team Providers Care Vehicle Service Agent Name Role Phone Pal Child Primary Care Provider [phone] Problems Code Description Start Date End Date [...] Active E78.2 Mixed hyperlipidemia 01/29/2020 Acti ve G47.00 Insomnia, unspecified 01/29/2020 Act jon F41.1 Generalized anxiety disorder 01/29/2020/0 000 Active F32.0 Major depressive dis order, single episode, mild 01/29/2020 Active N31.9 Neuromuscular dysfun ction of bladder, unspecified 01/29/2020 Active Z87.440 Personal history of urinary (tract) infections 01/29/2020 Active Z86.718 Personal history of other venous thrombosis and embolism 01/29/2020 Active Z46.6 Encounter for fittin g and adjustment of urinary device 01/29/2020 Active 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 01/28 Active B34.2 Coronavirus infection, unspecified 03/04/2020 0 03/08/2020 Completed Z86.19 Personal history of other infectious and parasitic diseases 03/09/2020 Active U07.1 COVID-19 03/04/2020 08/30/2021 Completed U07.1 COVID-19 08/25/2021 Active VITAL SIGNS Date Time Diastolic blood pressure Systolic blood pressure Body height Body weight Temperature SpO2 Blood Sugar Pulse Respirations 201 77222 2 233.40 NI 202 10953 9 84.00 mm[Hg] - Sitting 167.00 mm[Hg] - Sitting 98.60 Tympanic 77.00/ min 17.00/min 204 27868 8 233.00 NI 207 63731 5 233.00 NI 214 86256 5 246.80 NI 18262 216 57986 8 80.00 mm[Hg] - Sitting 156.00 mm[Hg] - Sitting 98.20 Forehead Scan 97.00 % 66.00/ min 18.00/min 51765 216 68890 0 75.00 mm[Hg] - Sitting 152.00 mm[Hg] - Sitting 98.20 Forehead Scan 97.00 % 74.00/ min 18.00/min 36366 217 65571 3 68.00 mm[Hg] - Lying Down 148.00 mm[Hg] - Lying Down 97.80 Forehead Scan 93.00 % 74.00/ min 18.00/min 43917 217 75558 0 62.00 mm[Hg] - Sitting 148.00 mm[Hg] - Sitting 98.30 Forehead Scan 98.00 % 78.00/ min 19.00/min 38436 218 75868 7 73.00 mm[Hg] - Sitting 139.00 mm[Hg] - Sitting 98.00 Forehead Scan 94.00 % 70.00/ min 18.00/min 39289 218 41303 0 82.00 mm[Hg] - Lying Down 138.00 mm[Hg] - Lying Down 97.50 Forehead Scan 94.00 % 74.00/ min 18.00/min 90274 219 06839 1 75.00 mm[Hg] - Lying Down 122.00 mm[Hg] - Lying Down 97.70 Forehead Scan 96.00 % 67.00/ min 18.00/min 23303 219 97512 0 94.00 mm[Hg] - Sitting 155.00 mm[Hg] - Sitting 97.80 Forehead Scan 100.0 0% 78.00/ min 18.00/min 17483 220 07501 2 72.00 mm[Hg] - Sitting 132.00 mm[Hg] - Sitting 97.30 Forehead Scan 96.00 % 65.00/ min 18.00/min 06523 220 19657 0 64.00 mm[Hg] - Sitting 112.00 mm[Hg] - Sitting 97.50 Tympanic 98.00 % 71.00/ min 18.00/min 36361 221 49113 8 64.00 mm[Hg] - Lying Down 105.00 mm[Hg] - Lying Down 98.00 Forehead Scan 98.00 % 61.00/ min 16.00/min 221 30890 3 [place]60 [place] [address] 221 53182 0 85.00 mm[Hg] - Sitting 161.00 mm[Hg] - Sitting 98.10 Forehead Scan 98.00 % 89.00/ min 17.00/min 99082 222 13920 6 98.20 Forehead Scan 222 87704 6 95.00 % 17.00/min 222 98495 2 77.00 mm[Hg] - Sitting 150.00 mm[Hg] - Sitting 222 06221 0 79.00 mm[Hg] - Sitting 146.00 mm[Hg] - Sitting 98.10 Forehead Scan 93.00 % 69.00/ min 18.00/min 19388 223 29187 0 71.00 mm[Hg] - Sitting 147.00 mm[Hg] - Sitting 98.20 Forehead Scan 95.00 % 66.00/ min 18.00/min 53490 223 76973 0 81.00 mm[Hg] - Sitting 170.00 mm[Hg] - Sitting 98.10 Forehead Scan 94.00 % 82.00/ min 18.00/min 69346 224 47554 7 67.00 mm[Hg] - Sitting 131.00 mm[Hg] - Sitting 97.20 Forehead Scan 94.00 % 89.00/ min 16.00/min Immunizations Vaccine Date Status COVID-19 08/02/2020 Completed COVID-19 08/23/2020 Completed COVID-19 05/11/2021 Completed Influenza 05/07/2014 Completed Influenza 05/13/2015 Completed Influenza 05/06/2016 Completed Influenza 04/20/2017 Completed Influenza 04/27/2018 Completed Influenza 04/09/2020 Completed Influenza 05/26/2021 Completed (PCV13)Pneumococcal 07/25/2017 Completed (PPSV23)Pneumococcal 03/20/2009 Completed
--- OUTSIDE RECORDS SUMMARY | 2023-03-09 21:12 | External Medical Summary | Continuity Of Care Document ---
Author Name Unknown Address [address] [address] Organization [facility] () Care Team Providers Care Print Machine Operator Name Role Phone Pal Child Primary Care Provider [phone] Problems Code Description Start Date End Date Status G82.52 Quadriplegia, C1-C4 incomplete 01/29/2020 Active A40.1 Sepsis due to streptococcus, group B 01/29/2020 06/09/2022 Completed R53.1 Weakness 01/29/2020 06/09/2022 Completed R26.2 Difficulty in walkin g, not elsewhere classified 01/29/2020 06/09/2022 Completed L03.115 Cellulitis of right lower limb 01/29/202006/09 Completed R33.9 Retention of urine, unspecified 01/29/2020 03/0 03/2023 Completed K21.9 Gastro-esophageal re flux disease without esophagitis 01/29/2020 09/15/2022 Completed I11.9 Hypertensive heart d isease without heart failure 01/29/2020 Active E66.09 Other obesity due to excess calories 01/29/2020 Active E78.2 Mixed hyperlipidemia 01/29/2020 Acti ve N31.9 Neuromuscular dysfun ction of bladder, unspecified 01/29/2020 Active Z87.440 Personal history of urinary (tract) infections 01/29/2020 09/15/2022 Completed Z86.718 Personal history of other venous thrombosis and embolism 01/29/2020 09/15/2022 Completed Z46.6 Encounter for fittin g and adjustment of urinary device 01/29/2020 06/09/2022 Completed 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 01/2809/15/2022 Completed M62.838 Other muscle spasm 03/16/2022 Active B34.2 Coronavirus infection, unspecified 03/04/2020 0 03/08/2020 Completed Z86.19 Personal history of other infectious and parasitic diseases 03/09/2020 06/09/2022 Completed U07.1 COVID-19 03/04/2020 08/30/2021 Completed U07.1 COVID-19 08/25/2021 06/09/2022 Completed D23.5 Other benign neoplasm of skin of trunk 09/25/1906/09/2022 Completed M62.81 Muscle weakness (generalized) 11/02/20212021 Completed R26.2 Difficulty in walkin g, not elsewhere classified 11/02/2021 06/09/2022 Completed M62.81 Muscle weakness (generalized) 12/27/20212021 Completed R26.2 Difficulty in walkin g, not elsewhere classified 12/27/2021 06/09/2022 Completed M25.611 Stiffness of right s houlder, not elsewhere classified 03/15/2022 06/09/2022 Completed M62.511 Muscle wasting and a trophy, not elsewhere classified, right shoulder 03/15/2022 06/09/2022 Completed M62.81 Muscle weakness (generalized) 06/09/20222022 Completed R26.2 Difficulty in walkin g, not elsewhere classified 06/09/2022 09/15/2022 Completed VITAL SIGNS Date Time Diastolic blood pressure Systolic blood pressure Body height Body weight Temperature SpO2 Blood Sugar Pulse Respirations 03270 501 69773 8 [place]00 [place] [address] 501 39642 6 72.00 mm[Hg] - Sitting 150.00 mm[Hg] - Sitting 98.20 Tympanic 69.00/ min 18.00/min Immunizations Vaccine Date Status COVID-19 08/02/2020 Completed COVID-19 08/23/2020 Completed COVID-19 05/11/2021 Completed COVID-19 06/16/2022 Completed Influenza 05/07/2014 Completed Influenza 05/13/2015 Completed Influenza 05/06/2016 Completed Influenza 04/20/2017 Completed Influenza 04/27/2018 Completed Influenza 04/09/2020 Completed Influenza 05/26/2021 Completed Influenza 04/13/2022 Completed (PCV13)Pneumococcal 07/25/2017 Completed (PPSV23)Pneumococcal 03/20/2009 Completed
--- OUTSIDE RECORDS SUMMARY | 2023-03-09 21:12 | External Medical Summary | Continuity of Care Document ---
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(Discharge Diagnosis) - 06/14/22 Asteatosis(Discharge Diagnosis) - 06/14/22 Seborrheic keratoses(Discharge Diagnosis) - 06/14/22 Discharge Disposition: Home or Self Care Attending Physician: MD Levine Thomas A Referring Physician: MD Levine Thomas A Allergies, Adverse Reactions, Alerts Substance Reaction Severity Status gentamicin hives and breathing difficulty Active ibuprofen hives Moderate Active aminoglycoside antibiotics unknown A ctive Cipro rash on skin Active Valium rash Active quinolones (fluoroquinolone antibiotics) unknown Active NSAIDs unknown Active Assessment and Plan Extracted from: Title:Clinical Document Author:MD Abner, Dustin Higgins Date:06/14/22 OUTPATIENT NOTE Name: Keven GERMAIN Patient Number:[id number] : 1950 Date of Service: 06/14/2022 _ Bin Germain returns for reevaluation. He notes a lentiginous lesion present left infraorbital area. This appears as a seborrheic keratosis with both a papular and macular component. It requires no further treatment and the patient was reassured as to its benign nature. He notes no changes in pigmented nevi. Review of systems medications allergies as noted on the chart. The patient is in stable health and continues his stay at [facility]. He is having more problems with transfers and is interested in getting physical therapy so that he can maintain his exercise program. Examination reveals pleasant well-nourished white male with type I skin who is alert and oriented x3 with normal mood and affect. Examination of the head, neck, back, chest, arms, hands, fingers, abdominal area reveals mild asteatotic change present on the arms, scattered seborrheic keratoses and compound nevi which do not appear atypical on the back and chest and is otherwise as noted above. Patient will return in 1 year for reevaluation. Medications acetaminophen 650 mg oral tablet Start: 05/04/11 19:36:00, 1 tab, PO, q8h, tab, PRN: as needed for pain Start Date: 05/04/11 Status: Ordered aspirin 81 mg oral delayed release tablet Start: 06/14/22 14:26:00 EST, 1 tab, PO, Daily Start Date: 06/14/22 Status: Ordered baclofen 20 mg oral tablet Start: 09/25/13 15:46:00, 1 tab, PO, qid Start Date: 09/25/13 Status: Ordered calcium carbonate 1,250 mg, PO, tid, Start: 11/02/14 10:20:11 Start Date: 11/02/14 Status: Ordered Cytra-K 334 mg-1100 mg/5 mL oral liquid Start: 11/28/14 15:41:00, 15 mL, PO, bid Start Date: 11/28/14 Status: Ordered Dulcolax Laxative 10 mg rectal suppository Start: 09/25/13 15:47:00, 1 supp, [place], Daily, PRN: as needed for constipation Start Date: 09/25/13 Status: Ordered gabapentin 300 mg oral capsule Start: 05/04/11 19:38:00, 1 cap, PO, tid Start Date: 05/04/11 Status: Ordered Lasix 20 mg oral tablet Start: 04/05/18 14:00:00 EDT, 1 tab, PO, Daily Start Date: 04/05/18 Status: Ordered loratadine 10 mg oral capsule Start: 09/25/13 15:49:00, 1 cap, PO, Daily Start Date: 09/25/13 Status: Ordered Melatonin 5 mg oral tablet Start: 09/25/13 15:49:00, 1 tab, PO, qhs, PRN: Insomnia Start Date: 09/25/13 Status: Ordered MiraLax oral powder for reconstitution Start: 09/25/13 15:49:00 EDT, 17 g =, PO, q48h Start Date: 09/25/13 Status: Ordered Norvasc 5 mg oral tablet Start: 11/28/14 15:43:00, 1 tab, PO, Daily Start Date: 11/28/14 Status: Ordered PARoxetine 30 mg oral tablet Start: 04/05/18 13:47:00 EDT, 1 tab, PO, Daily Start Date: 04/05/18 Status: Ordered potassium chloride 20 mEq oral tablet, extended release Start: 04/05/18 13:44:00 EDT, 1.5 tab, PO, Daily Start Date: 04/05/18 Status: Ordered simvastatin 20 mg oral tablet Start: 05/04/11 19:35:00, 1 tab, PO, qhs Start Date: 05/04/11 Status: Ordered tiZANidine 4 mg oral tablet Start: 11/02/14 7:43:00, 1 tab, PO, qhs Start Date: 11/02/14 Status: Ordered Vitamin B Complex Start: 06/09/20 13:04:00 EST, 1 tab, PO, Daily Start Date: 06/09/20 Status: Ordered Vitamin C 500 mg oral capsule Start: 06/09/20 13:05:00 EST, 1 cap, PO, Daily Start Date: 06/09/20 Status: Ordered Vitamin D3 1000 intl units oral capsule Start: 09/25/13 15:51:00, 1 cap, PO, Daily Start Date: 09/25/13 Status: Ordered zinc (as gluconate) 50 mg oral tablet Start: 06/09/20 13:05:00 EST, 1 tab, PO, Daily Start Date: 06/09/20 Status: Ordered Mental Status 06/14/22 Barriers to Learning one year None evide nt Mandatory Health Literacy Documentation Yes Health Literacy Communication Barriers N ever Primary Language Montserratian Problem List Condition Confirmation Course Effective Dates Status Health St atus Informant Anxiety Confirmed Active Chest skin lesion Confirmed Active Muscle spasm Confirmed Active Dry scalp Confirmed Active Elevated cholesterol Confirmed Active HTN (hypertension) Confirmed Active 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 Active Kidney stone Confirmed Active 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 10/28/14 Active Nerve pain Confirmed Active Partial paralysis of both lower limbs Confirmed Active 1positive mrsa nasal swab Diagnosis Diagnosis Type Effective Dates Health Status Clinical Service Informant Asteatosis Discharge Diagnosis 06/14/22 Seborrheic keratoses Discharge Diagnosis 06/14/22 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 Discharge Diagnosis 06/14/22 Procedures Procedure Date Related Diagnosis Body Site Status Surgery 1 03/2022 Completed Lithotripsy using laser 2019 C ompleted Shave biopsy and cauterization of skin 04/05/18 Completed Lithotripsy 2 Completed Lithotripsy using laser C ompleted Nephrostomy tube 3 Comple gee Shave biopsy Completed Suprapubic catheter 4 Com pleted Surgery 5 Completed Surgery 6 Completed 1hemorrhoidectomy 2x 2 05/03/22, 24/02/22 3removed-kidney stones removed with stent 4hydroceles removed 5kidney stone with stent 6spine Social History Social History Type Response Smoking Status Never smoked cigaret kaela Sex Male Patient Care team information Personnel Name: MD Danyell, Pal Shannon Address: Address: [address] [place] [address]
--- OUTSIDE RECORDS SUMMARY | 2023-03-09 21:12 | External Medical Summary | Continuity Of Care Document ---
Author Name Unknown Address [address] [place] [address] 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 01/28 Active B34.2 Coronavirus infection, unspecified 03/04/2020 0 03/08/2020 Completed Z86.19 Personal history of other infectious and parasitic diseases 03/09/2020 Active U07.1 COVID-19 03/04/2020 08/30/2021 Completed U07.1 COVID-19 08/25/2021 Active D23.5 Other benign neoplasm of skin of trunk 09/25/19 Active VITAL SIGNS Date Time Diastolic blood pressure Systolic blood pressure Body height Body weight Temperature SpO2 Blood Sugar Pulse Respirations 401 85182 6 247.40 NI 401 72166 4 76.00 mm[Hg] - Sitting 155.00 mm[Hg] - Sitting 98.00 Forehead Scan 70.00/ min 16.00/min Immunizations Vaccine Date Status COVID-19 08/02/2020 Completed COVID-19 08/23/2020 Completed COVID-19 05/11/2021 Completed Influenza 05/07/2014 Completed Influenza 05/13/2015 Completed Influenza 05/06/2016 Completed Influenza 04/20/2017 Completed Influenza 04/27/2018 Completed Influenza 04/09/2020 Completed Influenza 05/26/2021 Completed (PCV13)Pneumococcal 07/25/2017 Completed (PPSV23)Pneumococcal 03/20/2009 Completed
--- OUTSIDE RECORDS SUMMARY | 2023-03-09 21:12 | External Medical Summary | Continuity Of Care Document ---
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 01/28 Active B34.2 Coronavirus infection, unspecified 03/04/2020 0 03/08/2020 Completed Z86.19 Personal history of other infectious and parasitic diseases 03/09/2020 Active U07.1 COVID-19 03/04/2020 08/30/2021 Completed U07.1 COVID-19 08/25/2021 Active VITAL SIGNS Date Time Diastolic blood pressure Systolic blood pressure Body height Body weight Temperature SpO2 Blood Sugar Pulse Respirations 201 94863 2 233.40 NI 202 28217 9 84.00 mm[Hg] - Sitting 167.00 mm[Hg] - Sitting 98.60 Tympanic 77.00/ min 17.00/min 204 96056 8 233.00 NI 207 01057 5 233.00 NI 214 20043 5 246.80 [place] [address]49 216 27871 8 80.00 mm[Hg] - Sitting 156.00 mm[Hg] - Sitting 98.20 Forehead Scan 97.00 % 66.00/ min 18.00/min 42629 216 24875 0 75.00 mm[Hg] - Sitting 152.00 mm[Hg] - Sitting 98.20 Forehead Scan 97.00 % 74.00/ min 18.00/min 03817 217 67457 3 68.00 mm[Hg] - Lying Down 148.00 mm[Hg] - Lying Down 97.80 Forehead Scan 93.00 % 74.00/ min 18.00/min 37420 217 32221 0 62.00 mm[Hg] - Sitting 148.00 mm[Hg] - Sitting 98.30 Forehead Scan 98.00 % 78.00/ min 19.00/min 58433 218 96631 7 73.00 mm[Hg] - Sitting 139.00 mm[Hg] - Sitting 98.00 Forehead Scan 94.00 % 70.00/ min 18.00/min 52466 218 01158 0 82.00 mm[Hg] - Lying Down 138.00 mm[Hg] - Lying Down 97.50 Forehead Scan 94.00 % 74.00/ min 18.00/min 31664 219 56722 1 75.00 mm[Hg] - Lying Down 122.00 mm[Hg] - Lying Down 97.70 Forehead Scan 96.00 % 67.00/ min 18.00/min 76178 219 97182 0 94.00 mm[Hg] - Sitting 155.00 mm[Hg] - Sitting 97.80 Forehead Scan 100.0 0% 78.00/ min 18.00/min 75451 220 81826 2 72.00 mm[Hg] - Sitting 132.00 mm[Hg] - Sitting 97.30 Forehead Scan 96.00 % 65.00/ min 18.00/min 43139 220 87052 0 64.00 mm[Hg] - Sitting 112.00 mm[Hg] - Sitting 97.50 Tympanic 98.00 % 71.00/ min 18.00/min 82567 221 84587 8 64.00 mm[Hg] - Lying Down 105.00 mm[Hg] - Lying Down 98.00 Forehead Scan 98.00 % 61.00/ min 16.00/min 221 35184 3 242[place]60 [place] [address] 221 52564 0 85.00 mm[Hg] - Sitting 161.00 mm[Hg] - Sitting 98.10 Forehead Scan 98.00 % 89.00/ min 17.00/min 41194 222 65651 6 98.20 Forehead Scan 222 73835 6 95.00 % 17.00/min 222 38841 2 77.00 mm[Hg] - Sitting 150.00 mm[Hg] - Sitting 222 71711 0 79.00 mm[Hg] - Sitting 146.00 mm[Hg] - Sitting 98.10 Forehead Scan 93.00 % 69.00/ min 18.00/min 65836 223 12823 0 71.00 mm[Hg] - Sitting 147.00 mm[Hg] - Sitting 98.20 Forehead Scan 95.00 % 66.00/ min 18.00/min 48848 223 35982 0 81.00 mm[Hg] - Sitting 170.00 mm[Hg] - Sitting 98.10 Forehead Scan 94.00 % 82.00/ min 18.00/min 90700 224 70115 7 67.00 mm[Hg] - Sitting 131.00 mm[Hg] [...]
--- OUTSIDE RECORDS SUMMARY | 2023-03-09 21:12 | External Medical Summary | Continuity Of Care Document ---
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 01/28 Active B34.2 Coronavirus infection, unspecified 03/04/2020 0 03/08/2020 Completed Z86.19 Personal history of other infectious and parasitic diseases 03/09/2020 Active U07.1 COVID-19 03/04/2020 08/30/2021 Completed U07.1 COVID-19 08/25/2021 Active VITAL SIGNS Date Time Diastolic blood pressure Systolic blood pressure Body height Body weight Temperature SpO2 Blood Sugar Pulse Respirations 201 21888 2 233.40 NI 202 42489 9 84.00 mm[Hg] - Sitting 167.00 mm[Hg] - Sitting 98.60 Tympanic 77.00/ min 17.00/min 204 28180 8 233.00 NI 207 01660 5 233.00 NI 214 18605 5 246.80 NI 60997 216 75053 8 80.00 mm[Hg] - Sitting 156.00 mm[Hg] - Sitting 98.20 Forehead Scan 97.00 % 66.00/ min 18.00/min 86959 216 29766 0 75.00 mm[Hg] - Sitting 152.00 mm[Hg] - Sitting 98.20 Forehead Scan 97.00 % 74.00/ min 18.00/min 61350 217 29900 3 68.00 mm[Hg] - Lying Down 148.00 mm[Hg] - Lying Down 97.80 Forehead Scan 93.00 % 74.00/ min 18.00/min 08111 217 23908 0 62.00 mm[Hg] - Sitting 148.00 mm[Hg] - Sitting 98.30 Forehead Scan 98.00 % 78.00/ min 19.00/min 09169 218 18649 7 73.00 mm[Hg] - Sitting 139.00 mm[Hg] - Sitting 98.00 Forehead Scan 94.00 % 70.00/ min 18.00/min 92587 218 82547 0 82.00 mm[Hg] - Lying Down 138.00 mm[Hg] - Lying Down 97.50 Forehead Scan 94.00 % 74.00/ min 18.00/min 44449 219 73869 1 75.00 mm[Hg] - Lying Down 122.00 mm[Hg] - Lying Down 97.70 Forehead Scan 96.00 % 67.00/ min 18.00/min 83678 219 14370 0 94.00 mm[Hg] - Sitting 155.00 mm[Hg] - Sitting 97.80 Forehead Scan 100.0 0% 78.00/ min 18.00/min 94701 220 29447 2 72.00 mm[Hg] - Sitting 132.00 mm[Hg] - Sitting 97.30 Forehead Scan 96.00 % 65.00/ min 18.00/min 51515 220 58150 0 64.00 mm[Hg] - Sitting 112.00 mm[Hg] - Sitting 97.50 Tympanic 98.00 % 71.00/ min 18.00/min 00439 221 21660 8 64.00 mm[Hg] - Lying Down 105.00 mm[Hg] - Lying Down 98.00 Forehead Scan 98.00 % 61.00/ min 16.00/min 221 84332 3 242.60 [place] 89640 221 22184 0 85.00 mm[Hg] - Sitting 161.00 mm[Hg] - Sitting 98.10 Forehead Scan 98.00 % 89.00/ min 17.00/min 60256 222 51316 6 98.20 Forehead Scan 222 56614 6 95.00 % 17.00/min 222 06483 2 77.00 mm[Hg] - Sitting 150.00 mm[Hg] - Sitting 222 99835 0 79.00 mm[Hg] - Sitting 146.00 mm[Hg] - Sitting 98.10 Forehead Scan 93.00 % 69.00/ min 18.00/min 79257 223 99988 0 71.00 mm[Hg] - Sitting 147.00 mm[Hg] - Sitting 98.20 Forehead Scan 95.00 % 66.00/ min 18.00/min 98194 223 41280 0 81.00 mm[Hg] - Sitting 170.00 mm[Hg] - Sitting 98.10 Forehead Scan 94.00 % 82.00/ min 18.00/min 39803 224 27330 7 67.00 mm[Hg] - Sitting 131.00 mm[Hg] [...]
--- OUTSIDE RECORDS SUMMARY | 2023-03-09 21:12 | External Medical Summary | Continuity Of Care Document ---
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 01/28 Active B34.2 [...] Temperature SpO2 Blood Sugar Pulse Respirations 401 47341 6 247.40 NI 401 20974 4 76.00 mm[Hg] - Sitting 155.00 mm[Hg] - Sitting 98.00 Forehead Scan 70.00/ min 16.00/min Immunizations Vaccine Date Status COVID-19 08/02/2020 Completed COVID-19 08/23/2020 Completed COVID-19 05/11/2021 Completed Influenza 05/07/2014 Completed Influenza 05/13/2015 Completed Influenza 05/06/2016 Completed Influenza 04/20/2017 Completed Influenza 04/27/2018 Completed Influenza 04/09/2020 Completed Influenza 05/26/2021 Completed (PCV13)Pneumococcal 07/25/2017 Completed (PPSV23)Pneumococcal 03/20/2009 Completed
--- OUTSIDE RECORDS SUMMARY | 2023-03-09 21:12 | External Medical Summary | Continuity Of Care Document ---
Author Name Unknown Address [address] [place] [address] Organization [facility] () Care Team Providers Care Controls Technician Name Role Phone Pal Child Primary Care Provider [phone] Problems Code Description Start Date End Date Status G82.52 Quadriplegia, C1-C4 incomplete 01/29/2020 Active A40.1 Sepsis due to streptococcus, group B 01/29/2020 06/09/2022 Completed R53.1 Weakness 01/29/2020 06/09/2022 Completed R26.2 Difficulty in walkin g, not elsewhere classified 01/29/2020 06/09/2022 Completed L03.115 Cellulitis of right lower limb 01/29/202006/09 Completed R33.9 Retention of urine, unspecified 01/29/20200 Active K21.9 Gastro-esophageal re flux disease without [...] of urinary device 01/29/2020 06/09/2022 Completed Z79.01 group home (current) use of anticoagulants 01/28 Active M62.838 [...] 03/15/2022 06/09/2022 Completed M62.81 Muscle weakness (generalized) 06/09/2022 Active R26.2 Difficulty in walkin g, not elsewhere classified 06/09/2022 Active VITAL SIGNS Date Time Diastolic blood pressure Systolic blood pressure Body height Body weight Temperature SpO2 Blood Sugar Pulse Respirations 201 57514 3 86.00 mm[Hg] - Sitting 139.00 mm[Hg] [...]
--- OUTSIDE RECORDS SUMMARY | 2023-03-09 21:12 | External Medical Summary | Continuity Of Care Document ---
Author Name Unknown Address [address] [place] [address] Organization [facility] () Care Team Providers Care Group Work Program Aide Name Role Phone Dang Pritchett Primary Care Provider [phone] Problems Code Description Start Date End Date [...] of urinary device 01/29/2020 06/09/2022 Completed Z79.01 USP (current) use of anticoagulants 01/2809/15/2022 Completed M62.838 [...] g, not elsewhere classified 06/09/2022 09/15/2022 Completed R27.8 Other lack of coordination 12/23/2022 00/00/000 0 Active VITAL SIGNS Date Time Diastolic blood pressure Systolic blood pressure Body height Body weight Temperature SpO2 Blood Sugar Pulse Respirations 605 57822 8 258.20 NI 605 99678 3 66.00 mm[Hg] - Sitting 160.00 mm[Hg] - Sitting 98.00 Tympanic 96.00 % 66.00/ min 606 41777 0 84.00 mm[Hg] - Sitting 163.00 mm[Hg] - Sitting 97.30 Tympanic 96.00 % 79.00/ min 701 86806 1 70.00/ min 70 4 88.00 mm[Hg] - Lying Down 179.00 mm[Hg] - Lying Down 97.20 Forehead Scan 701 50454 6 257.00 NI Immunizations Vaccine Date Status COVID-19 08/02/2020 Completed COVID-19 08/23/2020 Completed COVID-19 05/11/2021 Completed COVID-19 06/16/2022 Completed Influenza 05/07/2014 Completed Influenza 05/13/2015 Completed Influenza 05/06/2016 Completed Influenza 04/20/2017 Completed Influenza 04/27/2018 Completed Influenza 04/09/2020 Completed Influenza 05/26/2021 Completed Influenza 04/13/2022 Completed (PCV13)Pneumococcal 07/25/2017 Completed (PPSV23)Pneumococcal 03/20/2009 Completed
--- OUTSIDE RECORDS SUMMARY | 2023-03-09 21:12 | External Medical Summary | Continuity Of Care Document ---
Author Name Unknown Address [address] [place] [address] Organization [facility] () Care Team Providers Care Meat Manager Name Role Phone Pal Child Primary Care Provider [phone] Problems Code Description Start Date End Date [...] of urinary device 01/29/2020 06/09/2022 Completed Z79.01 halfway (current) use of anticoagulants 01/2809/15/2022 Completed M62.838 [...] weight Temperature SpO2 Blood Sugar Pulse Respirations 43600 301 68886 2 249.40 [place] [address]363 301 36039 1 94.00 mm[Hg] - Lying Down 162.00 mm[Hg] - Lying Down 98.20 Forehead Scan 69.00/ min 16.00/min Immunizations Vaccine Date Status COVID-19 08/02/2020 Completed COVID-19 08/23/2020 Completed COVID-19 05/11/2021 Completed COVID-19 06/16/2022 Completed Influenza 05/07/2014 Completed Influenza 05/13/2015 Completed Influenza 05/06/2016 Completed Influenza 04/20/2017 Completed Influenza 04/27/2018 Completed Influenza 04/09/2020 Completed Influenza 05/26/2021 Completed Influenza 04/13/2022 Completed (PCV13)Pneumococcal 07/25/2017 Completed (PPSV23)Pneumococcal 03/20/2009 Completed
--- OUTSIDE RECORDS SUMMARY | 2023-03-09 21:12 | External Medical Summary | Continuity Of Care Document ---
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
--- OUTSIDE RECORDS SUMMARY | 2023-03-09 21:12 | External Medical Summary | Continuity Of Care Document ---
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 01/28 Active B34.2 Coronavirus infection, unspecified 03/04/2020 0 03/08/2020 Completed Z86.19 Personal history of other infectious and parasitic diseases 03/09/2020 Active U07.1 COVID-19 03/04/2020 08/30/2021 Completed U07.1 COVID-19 08/25/2021 Active D23.5 Other benign neoplasm of skin of trunk 09/25/19 Active M62.81 Muscle weakness (generalized) 11/02/2021 Active R26.2 Difficulty in walkin g, not elsewhere classified 11/02/2021 Active VITAL SIGNS Date Time Diastolic blood pressure Systolic blood pressure Body height Body weight Temperature SpO2 Blood Sugar Pulse Respirations 10956 501 71136 8 80.00 mm[Hg] - Lying Down 171.00 mm[Hg] - Lying Down 97.70 Tympanic 82.00/ min 18.00/min 65238 503 46185 8 243.40 NI Immunizations Vaccine Date Status COVID-19 08/02/2020 Completed COVID-19 08/23/2020 Completed COVID-19 05/11/2021 Completed Influenza 05/07/2014 Completed Influenza 05/13/2015 Completed Influenza 05/06/2016 Completed Influenza 04/20/2017 Completed Influenza 04/27/2018 Completed Influenza 04/09/2020 Completed Influenza 05/26/2021 Completed (PCV13)Pneumococcal 07/25/2017 Completed (PPSV23)Pneumococcal 03/20/2009 Completed
--- OUTSIDE RECORDS SUMMARY | 2023-03-09 21:12 | External Medical Summary | Continuity Of Care Document ---
Author Name Unknown Address [address] [place] [address] Organization [facility] () Care Team Providers Care Vegetable Thinner Name Role Phone Pal Child Primary Care Provider [phone] Problems Code Description Start Date End Date [...] adjustment of urinary device 01/29/2020 Active Z79.01 nursing home (current) use of anticoagulants 01/28 Active [...] weight Temperature SpO2 Blood Sugar Pulse Respirations 75815 906 04134 9 248.00 NI 20958 001 93999 0 249.00 NI 001 32761 0 249.00 NI 001 75379 0 Immunizations Vaccine Date Status COVID-19 08/02/2020 Completed COVID-19 08/23/2020 Completed COVID-19 05/11/2021 Completed Influenza 05/07/2014 Completed Influenza 05/13/2015 Completed Influenza 05/06/2016 Completed Influenza 04/20/2017 Completed Influenza 04/27/2018 Completed Influenza 04/09/2020 Completed Influenza 05/26/2021 Completed (PCV13)Pneumococcal 07/25/2017 Completed (PPSV23)Pneumococcal 03/20/2009 Completed
--- OUTSIDE RECORDS SUMMARY | 2023-03-09 21:12 | External Medical Summary | Continuity Of Care Document ---
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 01/28 Active [...] weight Temperature SpO2 Blood Sugar Pulse Respirations 219 80303 1 75.00 mm[Hg] - Lying Down 122.00 mm[Hg] - Lying Down 97.70 Forehead Scan 96.00 % 67.00/ min 18.00/min 219 96780 0 94.00 mm[Hg] - Sitting 155.00 mm[Hg] - Sitting 97.80 Forehead Scan 100.0 0% 78.00/ min 18.00/min 220 29657 2 72.00 mm[Hg] - Sitting 132.00 mm[Hg] - Sitting 97.30 Forehead Scan 96.00 % 65.00/ min 18.00/min 33506 220 40120 0 64.00 mm[Hg] - Sitting 112.00 mm[Hg] - Sitting 97.50 Tympanic 98.00 % 71.00/ min 18.00/min 68211 221 77173 8 64.00 mm[Hg] - Lying Down 105.00 mm[Hg] - Lying Down 98.00 Forehead Scan 98.00 % 61.00/ min 16.00/min 01076 221 93501 3 242.60 NI 10302 221 72134 0 85.00 mm[Hg] - Sitting 161.00 mm[Hg] - Sitting 98.10 Forehead Scan 98.00 % 89.00/ min 17.00/min 62987 222 17504 6 98.20 Forehead Scan 222 70007 6 95.00 % 17.00/min 222 24448 2 77.00 mm[Hg] - Sitting 150.00 mm[Hg] - Sitting 25271 222 94459 0 79.00 mm[Hg] - Sitting 146.00 mm[Hg] - Sitting 98.10 Forehead Scan 93.00 % 69.00/ min 18.00/min 34644 223 53233 0 71.00 mm[Hg] - Sitting 147.00 mm[Hg] - Sitting 98.20 Forehead Scan 95.00 % 66.00/ min 18.00/min 21542 223 70682 0 81.00 mm[Hg] - Sitting 170.00 mm[Hg] - Sitting 98.10 Forehead Scan 94.00 % 82.00/ min 18.00/min 73824 224 04910 7 67.00 mm[Hg] - Sitting 131.00 mm[Hg] - Sitting 97.20 Forehead Scan 94.00 % 89.00/ min 16.00/min 228 15160 6 243.20 NI 70261 301 39216 2 90262 303 05208 6 242.60 NI Immunizations Vaccine Date Status COVID-19 08/02/2020 Completed COVID-19 08/23/2020 Completed COVID-19 05/11/2021 Completed Influenza 05/07/2014 Completed Influenza 05/13/2015 Completed Influenza 05/06/2016 Completed Influenza 04/20/2017 Completed Influenza 04/27/2018 Completed Influenza 04/09/2020 Completed Influenza 05/26/2021 Completed (PCV13)Pneumococcal 07/25/2017 Completed (PPSV23)Pneumococcal 03/20/2009 Completed
--- OUTSIDE RECORDS SUMMARY | 2023-03-09 21:12 | External Medical Summary | Continuity Of Care Document ---
Author Name Unknown Address [address] [place] [address] Organization [facility] () Care Team Providers Care Break And Load Operator Name Role Phone DO Pritchett Amy Primary Care Provider [phone] Problems Code Description Start Date End Date [...] of urinary device 01/29/2020 06/09/2022 Completed Z79.01 terminal carman (current) use of anticoagulants 01/2809/15/2022 Completed M62.838 [...] lack of coordination 12/23/2022 00/00/000 0 Active Immunizations Vaccine Date Status COVID-19 08/02/2020 Completed COVID-19 08/23/2020 Completed COVID-19 05/11/2021 Completed COVID-19 06/16/2022 Completed Influenza 05/07/2014 Completed Influenza 05/13/2015 Completed Influenza 05/06/2016 Completed Influenza 04/20/2017 Completed Influenza 04/27/2018 Completed Influenza 04/09/2020 Completed Influenza 05/26/2021 Completed Influenza 04/13/2022 Completed (PCV13)Pneumococcal 07/25/2017 Completed (PPSV23)Pneumococcal 03/20/2009 Completed
--- OUTSIDE RECORDS SUMMARY | 2023-03-09 21:12 | External Medical Summary | Continuity Of Care Document ---
Author Name Unknown Address [address] [place] [address] Organization [facility] () Care Team Providers Care Temporary Help Agency Referral Clerk Name Role Phone Pal Child Primary Care Provider [phone] Problems Code Description Start Date End Date [...] adjustment of urinary device 01/29/2020 Active Z79.01 senior care (current) use of anticoagulants 01/28 Active B34.2 [...] walkin g, not elsewhere classified 12/27/2021 Active VITAL SIGNS Date Time Diastolic blood pressure Systolic blood pressure Body height Body weight Temperature SpO2 Blood Sugar Pulse Respirations 601 79906 0 78.00 mm[Hg] - Sitting 159.00 mm[Hg] - Sitting 245.80 NI 97.60 Tympanic 65.00/ min 18.00/min Immunizations Vaccine Date Status COVID-19 08/02/2020 Completed COVID-19 08/23/2020 Completed COVID-19 05/11/2021 Completed Influenza 05/07/2014 Completed Influenza 05/13/2015 Completed Influenza 05/06/2016 Completed Influenza 04/20/2017 Completed Influenza 04/27/2018 Completed Influenza 04/09/2020 Completed Influenza 05/26/2021 Completed (PCV13)Pneumococcal 07/25/2017 Completed (PPSV23)Pneumococcal 03/20/2009 Completed
--- OUTSIDE RECORDS SUMMARY | 2023-03-09 21:12 | External Medical Summary | Continuity Of Care Document ---
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 01/28 Active B34.2 Coronavirus infection, unspecified 03/04/2020 0 03/08/2020 Completed Z86.19 Personal history of other infectious and parasitic diseases 03/09/2020 Active U07.1 COVID-19 03/04/2020 08/30/2021 Completed U07.1 COVID-19 08/25/2021 Active VITAL SIGNS Date Time Diastolic blood pressure Systolic blood pressure Body height Body weight Temperature SpO2 Blood Sugar Pulse Respirations 201 55629 2 233.40 NI 202 34996 9 84.00 mm[Hg] - Sitting 167.00 mm[Hg] - Sitting 98.60 Tympanic 77.00/ min 17.00/min 204 58163 8 233.00 NI 207 93828 5 233.00 NI 214 18500 5 246.80 NI 91426 216 60557 8 80.00 mm[Hg] - Sitting 156.00 mm[Hg] - Sitting 98.20 Forehead Scan 97.00 % 66.00/ min 18.00/min 55380 216 24959 0 75.00 mm[Hg] - Sitting 152.00 mm[Hg] - Sitting 98.20 Forehead Scan 97.00 % 74.00/ min 18.00/min 97710 217 88762 3 68.00 mm[Hg] - Lying Down 148.00 mm[Hg] - Lying Down 97.80 Forehead Scan 93.00 % 74.00/ min 18.00/min 99773 217 56930 0 62.00 mm[Hg] - Sitting 148.00 mm[Hg] - Sitting 98.30 Forehead Scan 98.00 % 78.00/ min 19.00/min 41761 218 05902 7 73.00 mm[Hg] - Sitting 139.00 mm[Hg] - Sitting 98.00 Forehead Scan 94.00 % 70.00/ min 18.00/min 52043 218 24708 0 82.00 mm[Hg] - Lying Down 138.00 mm[Hg] - Lying Down 97.50 Forehead Scan 94.00 % 74.00/ min 18.00/min 39340 219 76893 1 75.00 mm[Hg] - Lying Down 122.00 mm[Hg] - Lying Down 97.70 Forehead Scan 96.00 % 67.00/ min 18.00/min 82230 219 35833 0 94.00 mm[Hg] - Sitting 155.00 mm[Hg] - Sitting 97.80 Forehead Scan 100.0 0% 78.00/ min 18.00/min 15521 220 82906 2 72.00 mm[Hg] - Sitting 132.00 mm[Hg] - Sitting 97.30 Forehead Scan 96.00 % 65.00/ min 18.00/min 02113 220 06201 0 64.00 mm[Hg] - Sitting 112.00 mm[Hg] - Sitting 97.50 Tympanic 98.00 % 71.00/ min 18.00/min 19590 221 88256 8 64.00 mm[Hg] - Lying Down 105.00 mm[Hg] - Lying Down 98.00 Forehead Scan 98.00 % 61.00/ min 16.00/min 221 80523 3 242.60 NI 13901 221 45285 0 85.00 mm[Hg] - Sitting 161.00 mm[Hg] - Sitting 98.10 Forehead Scan 98.00 % 89.00/ min 17.00/min 16865 222 13396 6 98.20 Forehead Scan 222 38573 6 95.00 % 17.00/min 45630 222 15700 2 77.00 mm[Hg] - Sitting 150.00 mm[Hg] - Sitting 45544 222 81685 0 79.00 mm[Hg] - Sitting 146.00 mm[Hg] - Sitting 98.10 Forehead Scan 93.00 % 69.00/ min 18.00/min 20105 223 57125 0 71.00 mm[Hg] - Sitting 147.00 mm[Hg] - Sitting 98.20 Forehead Scan 95.00 % 66.00/ min 18.00/min 03783 223 93287 0 81.00 mm[Hg] - Sitting 170.00 mm[Hg] - Sitting 98.10 Forehead Scan 94.00 % 82.00/ min 18.00/min Immunizations Vaccine Date Status COVID-19 08/02/2020 Completed COVID-19 08/23/2020 Completed COVID-19 05/11/2021 Completed Influenza 05/07/2014 Completed Influenza 05/13/2015 Completed Influenza 05/06/2016 Completed Influenza 04/20/2017 Completed Influenza 04/27/2018 Completed Influenza 04/09/2020 Completed Influenza 05/26/2021 Completed (PCV13)Pneumococcal 07/25/2017 Completed (PPSV23)Pneumococcal 03/20/2009 Completed
--- OUTSIDE RECORDS SUMMARY | 2023-03-09 21:12 | External Medical Summary | Continuity Of Care Document ---
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 01/28 Active B34.2 Coronavirus infection, unspecified 03/04/2020 0 03/08/2020 Completed Z86.19 Personal history of other infectious and parasitic diseases 03/09/2020 Active U07.1 COVID-19 03/04/2020 Active VITAL SIGNS Date Time Diastolic blood pressure Systolic blood pressure Body height Body weight Temperature SpO2 Blood Sugar Pulse Respirations 201 71558 2 233.40 NI 202 17893 9 84.00 mm[Hg] - Sitting 167.00 mm[Hg] - Sitting 98.60 Tympanic 77.00/ min 17.00/min 204 72322 8 233.00 NI 90798 207 93343 5 233.00 NI 214 13324 5 246.80 NI 216 73077 8 80.00 mm[Hg] - Sitting 156.00 mm[Hg] - Sitting 98.20 Forehead Scan 97.00 % 66.00/ min 18.00/min 68272 216 09360 0 75.00 mm[Hg] - Sitting 152.00 mm[Hg] - Sitting 98.20 Forehead Scan 97.00 % 74.00/ min 18.00/min 79451 217 93799 3 68.00 mm[Hg] - Lying Down 148.00 mm[Hg] - Lying Down 97.80 Forehead Scan 93.00 % 74.00/ min 18.00/min 78345 217 84346 0 62.00 mm[Hg] - Sitting 148.00 mm[Hg] - Sitting 98.30 Forehead Scan 98.00 % 78.00/ min 19.00/min 61526 218 94658 7 73.00 mm[Hg] - Sitting 139.00 mm[Hg] - Sitting 98.00 Forehead Scan 94.00 % 70.00/ min 18.00/min 15057 218 19435 0 82.00 mm[Hg] - Lying Down 138.00 mm[Hg] - Lying Down 97.50 Forehead Scan 94.00 % 74.00/ min 18.00/min 12131 219 55895 1 75.00 mm[Hg] - Lying Down 122.00 mm[Hg] - Lying Down 97.70 Forehead Scan 96.00 % 67.00/ min 18.00/min 219 67667 0 94.00 mm[Hg] - Sitting 155.00 mm[Hg] - Sitting 97.80 Forehead Scan 100.0 0% 78.00/ min 18.00/min 220 17613 2 72.00 mm[Hg] - Sitting 132.00 mm[Hg] - Sitting 97.30 Forehead Scan 96.00 % 65.00/ min 18.00/min 220 49091 0 64.00 mm[Hg] - Sitting 112.00 mm[Hg] - Sitting 97.50 Tympanic 98.00 % 71.00/ min 18.00/min Immunizations Vaccine Date Status COVID-19 08/02/2020 Completed COVID-19 08/23/2020 Completed COVID-19 05/11/2021 Completed Influenza 05/07/2014 Completed Influenza 05/13/2015 Completed Influenza 05/06/2016 Completed Influenza 04/20/2017 Completed Influenza 04/27/2018 Completed Influenza 04/09/2020 Completed Influenza 05/26/2021 Completed (PCV13)Pneumococcal 07/25/2017 Completed (PPSV23)Pneumococcal 03/20/2009 Completed
--- OUTSIDE RECORDS SUMMARY | 2023-03-09 21:12 | External Medical Summary | Continuity Of Care Document ---
Author Name Unknown Address [address] [place] [address] Organization [facility] () Care Team Providers Care Hotel Front Office Manager Name Role Phone Pla Child Primary Care Provider [phone] Problems Code Description Start Date End Date [...] weight Temperature SpO2 Blood Sugar Pulse Respirations 70383 906 39074 9 248.00 NI Immunizations Vaccine Date Status COVID-19 08/02/2020 Completed COVID-19 08/23/2020 Completed COVID-19 05/11/2021 Completed Influenza 05/07/2014 Completed Influenza 05/13/2015 Completed Influenza 05/06/2016 Completed Influenza 04/20/2017 Completed Influenza 04/27/2018 Completed Influenza 04/09/2020 Completed Influenza 05/26/2021 Completed (PCV13)Pneumococcal 07/25/2017 Completed (PPSV23)Pneumococcal 03/20/2009 Completed
--- OUTSIDE RECORDS SUMMARY | 2023-03-09 21:13 | External Medical Summary | Continuity Of Care Document ---
Author Name Unknown Address [address] [place] [address] Organization [facility] () Care Team Providers Care Livestock Handler Name Role Phone Pal Child Primary Care Provider [phone] Problems Code Description Start Date End Date [...] adjustment of urinary device 01/29/2020 Active Z79.01 meterman (current) use of anticoagulants 01/28 Active B34.2 Coronavirus infection, unspecified 03/04/2020 0 03/08/2020 Completed Z86.19 Personal history of other infectious and parasitic diseases 03/09/2020 Active U07.1 COVID-19 03/04/2020 Active VITAL SIGNS Date Time Diastolic blood pressure Systolic blood pressure Body height Body weight Temperature SpO2 Blood Sugar Pulse Respirations 101 41958 0 231.00 NI 101 09438 4 87.00 mm[Hg] - Sitting 174.00 mm[Hg] - Sitting 98.90 Tympanic 63.00/ min 18.00/min 108 04458 7 231.50 NI 115 49877 6 52.00 mm[Hg] - Sitting 95.00 mm[Hg] - Sitting 98.10 Tympanic 91.00 % 60.00/ min Immunizations Vaccine Date Status COVID-19 08/02/2020 Completed COVID-19 08/23/2020 Completed COVID-19 05/11/2021 Completed Influenza 05/07/2014 Completed Influenza 05/13/2015 Completed Influenza 05/06/2016 Completed Influenza 04/20/2017 Completed Influenza 04/27/2018 Completed Influenza 04/09/2020 Completed (PCV13)Pneumococcal 07/25/2017 Completed (PPSV23)Pneumococcal 03/20/2009 Completed
--- OUTSIDE RECORDS SUMMARY | 2023-03-09 21:13 | External Medical Summary | Continuity Of Care Document ---
Author Name Unknown Address [address] [place] [address] Organization [facility] () Care Team Providers Care Semiconductor Packages Platemaker Name Role Phone Pal Child Primary Care Provider [phone] Problems Code Description Start Date End Date [...] adjustment of urinary device 01/29/2020 Active Z79.01 correction (current) use of anticoagulants 01/28 Active B34.2 Coronavirus infection, unspecified 03/04/2020 0 03/08/2020 Completed Z86.19 Personal history of other infectious and parasitic diseases 03/09/2020 Active U07.1 COVID-19 03/04/2020 Active VITAL SIGNS Date Time Diastolic blood pressure Systolic blood pressure Body height Body weight Temperature SpO2 Blood Sugar Pulse Respirations 05649 101 47071 6 85.00 mm[Hg] - Sitting 163.00 mm[Hg] - Sitting 97.80 Tympanic 63.00/ min 18.00/min 31190 101 03901 8 32553 103 86642 6 Immunizations Vaccine Date Status Influenza 05/07/2014 Completed Influenza 05/13/2015 Completed Influenza 05/06/2016 Completed Influenza 04/20/2017 Completed Influenza 04/27/2018 Completed Influenza 04/09/2020 Completed (PCV13)Pneumococcal 07/25/2017 Completed (PPSV23)Pneumococcal 03/20/2009 Completed
--- OUTSIDE RECORDS SUMMARY | 2023-03-09 21:13 | External Medical Summary | Continuity Of Care Document ---
Author Name Unknown Address [address] [place] [place] [address] Organization [facility] () Care Team Providers Care Chief Design Engineer Name Role Phone Pal Child Primary Care Provider [phone] Problems Code Description Start Date End Date [...] Temperature SpO2 Blood Sugar Pulse Respirations 101 69209 0 231.00 NI 101 42867 4 87.00 mm[Hg] - Sitting 174.00 mm[Hg] - Sitting 98.90 Tympanic 63.00/ min 18.00/min 108 68577 7 231.50 NI 115 15231 6 52.00 mm[Hg] - Sitting 95.00 mm[Hg] - Sitting 98.10 Tympanic 91.00 % 60.00/ min Immunizations Vaccine Date Status COVID-19 08/02/2020 Completed COVID-19 08/23/2020 Completed COVID-19 05/11/2021 Completed Influenza 05/07/2014 Completed Influenza 05/13/2015 Completed Influenza 05/06/2016 Completed Influenza 04/20/2017 Completed Influenza 04/27/2018 Completed Influenza 04/09/2020 Completed (PCV13)Pneumococcal 07/25/2017 Completed (PPSV23)Pneumococcal 03/20/2009 Completed
--- OUTSIDE RECORDS SUMMARY | 2023-03-09 21:13 | External Medical Summary | Continuity of Care Document ---
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 He notes irritated keratotic papules on the right jawline and right and left lateral neck. These were frozen at the patient's request and with his consent as inflamed seborrheic keratoses. Review of systems medications allergies as noted on the chart. Patient notes no other new skin problems. He does have a prior history of atypical nevi. [facility] He has been able to get back to the gym 2 times per week. Examination reveals pleasant well-nourished white male type II skin alert and oriented x3 with normal mood and affect. Examination of the head, neck, back, chest, arms, hands, fingers reveals scattered pigmented nevi which do not appear atypical, seborrheic keratoses on the back which are not bothersome or not treated today and is otherwise unremarkable. Patient will return in 1 year for reevaluation. Medications acetaminophen 650 mg oral tablet Start: 05/04/11 19:36:00, 1 tab, PO, q8h, tab, PRN: as needed for pain Start Date: 05/04/11 Status: Ordered baclofen 20 mg oral tablet Start: 09/25/13 15:46:00, 1 tab, PO, qid Start Date: 09/25/13 Status: Ordered calcium carbonate 1,250 mg, PO, tid, Start: 11/02/14 10:20:11 Start Date: 11/02/14 Status: Ordered Cytra-K 334 mg-1100 mg/5 mL oral liquid Start: 11/28/14 15:41:00, 15 mL, PO, bid Start Date: 11/28/14 Status: Ordered Dulcolax Laxative 10 mg rectal suppository Start: 09/25/13 15:47:00, 1 supp, CA, Daily, PRN: as needed for constipation Start [...] PO, Daily Start Date: 09/25/13 Status: Ordered Xarelto 15 mg oral tablet Start: 04/05/18 13:42:00 EDT, 1 tab, PO, Daily Start Date: 04/05/18 Status: Ordered zinc (as gluconate) 50 mg oral tablet Start: 06/09/20 13:05:00 EST, 1 tab, PO, Daily Start Date: 06/09/20 Status: Ordered Mental Status 06/10/21 Barriers to Learning one year None evide nt Mandatory Health Literacy Documentation Yes Health Literacy Communication Barriers N ever Problem List Condition Effective Dates Status Health Status Inform ant Anxiety(Confirmed) Active Chest skin lesion(Confirmed) Active Muscle spasm(Confirmed) Active Dry scalp(Confirmed) Active Elevated cholesterol(Confirmed) Active HTN (hypertension)(Confirmed) Active 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 Kidney stone(Confirmed) Active 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 10/28/14 Active Nerve pain(Confirmed) Active 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 1positive mrsa nasal swab Diagnosis Diagnosis Type Effective Dates Health Status Clinical Service Informant 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
--- OUTSIDE RECORDS SUMMARY | 2023-03-09 21:13 | External Medical Summary | Continuity Of Care Document ---
Author Name Unknown Address [address] [place] [address] Organization [facility] () Care Team Providers Care Account Support Specialist Name Role Phone Pal Child Primary Care Provider [phone] Problems Code Description Start Date End Date [...] of urinary device 01/29/2020 Active Z79.01 senior living (current) use of anticoagulants 01/28 Active B34.2 Coronavirus infection, unspecified 03/04/2020 0 03/08/2020 Completed Z86.19 Personal history of other infectious and parasitic diseases 03/09/2020 Active U07.1 COVID-19 03/04/2020 Active VITAL SIGNS Date Time Diastolic blood pressure Systolic blood pressure Body height Body weight Temperature SpO2 Blood Sugar Pulse Respirations 92138 101 63470 6 85.00 mm[Hg] - Sitting 163.00 mm[Hg] - Sitting 97.80 Tympanic 63.00/ min 18.00/min 47976 101 29903 8 03204 103 97768 6 00418 126 80136 4 235.20 NI Immunizations Vaccine Date Status COVID-19 08/02/2020 Completed Influenza 05/07/2014 Completed Influenza 05/13/2015 Completed Influenza 05/06/2016 Completed Influenza 04/20/2017 Completed Influenza 04/27/2018 Completed Influenza 04/09/2020 Completed (PCV13)Pneumococcal 07/25/2017 Completed (PPSV23)Pneumococcal 03/20/2009 Completed
--- OUTSIDE RECORDS SUMMARY | 2023-03-09 21:13 | External Medical Summary | Continuity Of Care Document ---
Author Name Unknown Address [address] [place] [address] Organization [facility] () Care Team Providers Care Marketing Proposal Specialist Name Role Phone Pal Child Primary Care Provider [phone] Problems Code Description Start Date End Date [...] adjustment of urinary device 01/29/2020 Active Z79.01 exterminator helper (current) use of anticoagulants 01/28 Active B34.2 Coronavirus infection, unspecified 03/04/2020 0 03/08/2020 Completed Z86.19 Personal history of other infectious and parasitic diseases 03/09/2020 Active U07.1 COVID-19 03/04/2020 Active VITAL SIGNS Date Time Diastolic blood pressure Systolic blood pressure Body height Body weight Temperature SpO2 Blood Sugar Pulse Respirations 101 03805 0 231.00 NI 101 05893 4 87.00 mm[Hg] - Sitting 174.00 mm[Hg] - Sitting 98.90 Tympanic 63.00/ min 18.00/min 108 92548 7 231.50 NI 115 57055 6 52.00 mm[Hg] - Sitting 95.00 mm[Hg] - Sitting 98.10 Tympanic 91.00 % 60.00/ min Immunizations Vaccine Date Status COVID-19 08/02/2020 Completed COVID-19 08/23/2020 Completed COVID-19 05/11/2021 Completed Influenza 05/07/2014 Completed Influenza 05/13/2015 Completed Influenza 05/06/2016 Completed Influenza 04/20/2017 Completed Influenza 04/27/2018 Completed Influenza 04/09/2020 Completed (PCV13)Pneumococcal 07/25/2017 Completed (PPSV23)Pneumococcal 03/20/2009 Completed
--- OUTSIDE RECORDS SUMMARY | 2023-03-09 21:13 | External Medical Summary | Continuity Of Care Document ---
Author Name Unknown Address [address] [place] [address] Organization [facility] () Care Team Providers Care Merchandise Flow Manager Name Role Phone Pal Child Primary Care Provider [phone] Problems Code Description Start Date End Date [...] of urinary device 01/29/2020 Active Z79.01 terminal manager (current) use of anticoagulants 01/28 Active B34.2 Coronavirus infection, unspecified 03/04/2020 0 03/08/2020 Completed Z86.19 Personal history of other infectious and parasitic diseases 03/09/2020 Active U07.1 COVID-19 03/04/2020 Active VITAL SIGNS Date Time Diastolic blood pressure Systolic blood pressure Body height Body weight Temperature SpO2 Blood Sugar Pulse Respirations 17967 126 82929 4 235[place]20 [place] [address] 201 13297 1 86.00 mm[Hg] - Sitting 168.00 mm[Hg] - Sitting 236.60 NI 98.40 Forehead Scan 73.00/ min 18.00/min Immunizations Vaccine Date Status COVID-19 08/02/2020 Completed Influenza 05/07/2014 Completed Influenza 05/13/2015 Completed Influenza 05/06/2016 Completed Influenza 04/20/2017 Completed Influenza 04/27/2018 Completed Influenza 04/09/2020 Completed (PCV13)Pneumococcal 07/25/2017 Completed (PPSV23)Pneumococcal 03/20/2009 Completed
--- OUTSIDE RECORDS SUMMARY | 2023-03-09 21:13 | External Medical Summary | Continuity Of Care Document ---
Author Name Unknown Address [address] [place] [place] [address] Organization [facility] () Care Team Providers Care Pci Security Consultant Name Role Phone Pal Child Primary Care Provider [phone] Problems Code Description Start Date End Date [...] adjustment of urinary device 01/29/2020 Active Z79.01 intermission coordinator (current) use of anticoagulants 01/28 Active B34.2 Coronavirus infection, unspecified 03/04/2020 0 03/08/2020 Completed Z86.19 Personal history of other infectious and parasitic diseases 03/09/2020 Active U07.1 COVID-19 03/04/2020 Active VITAL SIGNS Date Time Diastolic blood pressure Systolic blood pressure Body height Body weight Temperature SpO2 Blood Sugar Pulse Respirations 31213 301 39922 7 83.00 mm[Hg] - Sitting 154.00 mm[Hg] - Sitting 97.90 Tympanic 62.00/ min 16.00/min Immunizations Vaccine Date Status COVID-19 08/02/2020 Completed COVID-19 08/23/2020 Completed Influenza 05/07/2014 Completed Influenza 05/13/2015 Completed Influenza 05/06/2016 Completed Influenza 04/20/2017 Completed Influenza 04/27/2018 Completed Influenza 04/09/2020 Completed (PCV13)Pneumococcal 07/25/2017 Completed (PPSV23)Pneumococcal 03/20/2009 Completed
--- OUTSIDE RECORDS SUMMARY | 2023-03-09 21:13 | External Medical Summary | Continuity Of Care Document ---
Author Name Unknown Address [address] [place] [place] [address] Organization [facility] () Care Team Providers Care Salvage Diver Name Role Phone Pal Child Primary Care Provider [phone] Problems Code Description Start Date End Date [...] adjustment of urinary device 01/29/2020 Active Z79.01 buttermaker (current) use of anticoagulants 01/28 Active B34.2 Coronavirus infection, unspecified 03/04/2020 0 03/08/2020 Completed Z86.19 Personal history of other infectious and parasitic diseases 03/09/2020 Active U07.1 COVID-19 03/04/2020 Active VITAL SIGNS Date Time Diastolic blood pressure Systolic blood pressure Body height Body weight Temperature SpO2 Blood Sugar Pulse Respirations 101 16588 0 231.00 NI 101 72761 4 87.00 mm[Hg] - Sitting 174.00 mm[Hg] - Sitting 98.90 Tympanic 63.00/ min 18.00/min 108 72732 7 231.50 NI 115 14546 6 52.00 mm[Hg] - Sitting 95.00 mm[Hg] - Sitting 98.10 Tympanic 91.00 % 60.00/ min Immunizations Vaccine Date Status COVID-19 08/02/2020 Completed COVID-19 08/23/2020 Completed COVID-19 05/11/2021 Completed Influenza 05/07/2014 Completed Influenza 05/13/2015 Completed Influenza 05/06/2016 Completed Influenza 04/20/2017 Completed Influenza 04/27/2018 Completed Influenza 04/09/2020 Completed (PCV13)Pneumococcal 07/25/2017 Completed (PPSV23)Pneumococcal 03/20/2009 Completed
--- OUTSIDE RECORDS SUMMARY | 2023-03-09 21:13 | External Medical Summary | Continuity Of Care Document ---
Author Name Unknown Address [address] [place] [address] Organization [facility] () Care Team Providers Care Cashier Assistant Name Role Phone Pal Child Primary Care Provider [phone] Problems Code Description Start Date End Date [...] adjustment of urinary device 01/29/2020 Active Z79.01 intermediate manager (current) use of anticoagulants 01/28 Active B34.2 Coronavirus infection, unspecified 03/04/2020 0 03/08/2020 Completed Z86.19 Personal history of other infectious and parasitic diseases 03/09/2020 Active U07.1 COVID-19 03/04/2020 08/30/2021 Completed U07.1 COVID-19 08/25/2021 Active VITAL SIGNS Date Time Diastolic blood pressure Systolic blood pressure Body height Body weight Temperature SpO2 Blood Sugar Pulse Respirations 201 40949 2 233.40 NI 202 31267 9 84.00 mm[Hg] - Sitting 167.00 mm[Hg] - Sitting 98.60 Tympanic 77.00/ min 17.00/min 204 34459 8 233.00 NI 207 56920 5 233.00 NI 214 12026 5 246.80 NI 41133 216 48300 8 80.00 mm[Hg] - Sitting 156.00 mm[Hg] - Sitting 98.20 Forehead Scan 97.00 % 66.00/ min 18.00/min 61278 216 71776 0 75.00 mm[Hg] - Sitting 152.00 mm[Hg] - Sitting 98.20 Forehead Scan 97.00 % 74.00/ min 18.00/min 40927 217 34874 3 68.00 mm[Hg] - Lying Down 148.00 mm[Hg] - Lying Down 97.80 Forehead Scan 93.00 % 74.00/ min 18.00/min 04589 217 63957 0 62.00 mm[Hg] - Sitting 148.00 mm[Hg] - Sitting 98.30 Forehead Scan 98.00 % 78.00/ min 19.00/min 07959 218 91949 7 73.00 mm[Hg] - Sitting 139.00 mm[Hg] - Sitting 98.00 Forehead Scan 94.00 % 70.00/ min 18.00/min 78598 218 31343 0 82.00 mm[Hg] - Lying Down 138.00 mm[Hg] - Lying Down 97.50 Forehead Scan 94.00 % 74.00/ min 18.00/min 97997 219 35260 1 75.00 mm[Hg] - Lying Down 122.00 mm[Hg] - Lying Down 97.70 Forehead Scan 96.00 % 67.00/ min 18.00/min 219 08091 0 94.00 mm[Hg] - Sitting 155.00 mm[Hg] - Sitting 97.80 Forehead Scan 100.0 0% 78.00/ min 18.00/min 220 09907 2 72.00 mm[Hg] - Sitting 132.00 mm[Hg] - Sitting 97.30 Forehead Scan 96.00 % 65.00/ min 18.00/min 220 18347 0 64.00 mm[Hg] - Sitting 112.00 mm[Hg] - Sitting 97.50 Tympanic 98.00 % 71.00/ min 18.00/min Immunizations Vaccine Date Status COVID-19 08/02/2020 Completed COVID-19 08/23/2020 Completed COVID-19 05/11/2021 Completed Influenza 05/07/2014 Completed Influenza 05/13/2015 Completed Influenza 05/06/2016 Completed Influenza 04/20/2017 Completed Influenza 04/27/2018 Completed Influenza 04/09/2020 Completed Influenza 05/26/2021 Completed (PCV13)Pneumococcal 07/25/2017 Completed (PPSV23)Pneumococcal 03/20/2009 Completed
--- OUTSIDE RECORDS SUMMARY | 2023-03-09 21:13 | External Medical Summary | Continuity Of Care Document ---
Author Name Unknown Address [address] [place] [address] Organization [facility] () Care Team Providers Care Oncology Physician Name Role Phone Pal Child Primary Care Provider [phone] Problems Code Description Start Date End Date [...] Temperature SpO2 Blood Sugar Pulse Respirations 101 99333 0 231.00 NI 101 82198 4 87.00 mm[Hg] - Sitting 174.00 mm[Hg] - Sitting 98.90 Tympanic 63.00/ min 18.00/min 108 68870 7 231.50 NI 115 94563 6 52.00 mm[Hg] - Sitting 95.00 mm[Hg] - Sitting 98.10 Tympanic 91.00 % 60.00/ min Immunizations Vaccine Date Status COVID-19 08/02/2020 Completed COVID-19 08/23/2020 Completed COVID-19 05/11/2021 Completed Influenza 05/07/2014 Completed Influenza 05/13/2015 Completed Influenza 05/06/2016 Completed Influenza 04/20/2017 Completed Influenza 04/27/2018 Completed Influenza 04/09/2020 Completed (PCV13)Pneumococcal 07/25/2017 Completed (PPSV23)Pneumococcal 03/20/2009 Completed
--- OUTSIDE RECORDS SUMMARY | 2023-03-09 21:13 | External Medical Summary | Continuity Of Care Document ---
Author Name Unknown Address [address] [place] [address] Organization [facility] () Care Team Providers Care Coil Tier Name Role Phone Pal Child Primary Care Provider [phone] Problems Code Description Start Date End Date [...] adjustment of urinary device 01/29/2020 Active Z79.01 watermaster (current) use of anticoagulants 01/28 Active B34.2 Coronavirus infection, unspecified 03/04/2020 0 03/08/2020 Completed Z86.19 Personal history of other infectious and parasitic diseases 03/09/2020 Active U07.1 COVID-19 03/04/2020 Active VITAL SIGNS Date Time Diastolic blood pressure Systolic blood pressure Body height Body weight Temperature SpO2 Blood Sugar Pulse Respirations 101 27341 0 231.00 NI 101 84802 4 87.00 mm[Hg] - Sitting 174.00 mm[Hg] - Sitting 98.90 Tympanic 63.00/ min 18.00/min 108 36843 7 231.50 NI 115 06071 6 52.00 mm[Hg] - Sitting 95.00 mm[Hg] - Sitting 98.10 Tympanic 91.00 % 60.00/ min Immunizations Vaccine Date Status COVID-19 08/02/2020 Completed COVID-19 08/23/2020 Completed COVID-19 05/11/2021 Completed Influenza 05/07/2014 Completed Influenza 05/13/2015 Completed Influenza 05/06/2016 Completed Influenza 04/20/2017 Completed Influenza 04/27/2018 Completed Influenza 04/09/2020 Completed (PCV13)Pneumococcal 07/25/2017 Completed (PPSV23)Pneumococcal 03/20/2009 Completed
--- OUTSIDE RECORDS SUMMARY | 2023-03-09 21:13 | External Medical Summary | Continuity Of Care Document ---
Author Name Unknown Address [address] [place] [place] [address] Organization [facility] () Care Team Providers Care Footwear Sales Coordinator Name Role Phone Pal Child Primary Care Provider [phone] Problems Code Description Start Date End Date [...] adjustment of urinary device 01/29/2020 Active Z79.01 longterm (current) use of anticoagulants 01/28 Active B34.2 Coronavirus infection, unspecified 03/04/2020 0 03/08/2020 Completed Z86.19 Personal history of other infectious and parasitic diseases 03/09/2020 Active U07.1 COVID-19 03/04/2020 Active VITAL SIGNS Date Time Diastolic blood pressure Systolic blood pressure Body height Body weight Temperature SpO2 Blood Sugar Pulse Respirations 75795 101 88286 6 85.00 mm[Hg] - Sitting 163.00 mm[Hg] - Sitting 97.80 Tympanic 63.00/ min 18.00/min 36803 101 18634 8 43938 103 47696 6 Immunizations Vaccine Date Status Influenza 05/07/2014 Completed Influenza 05/13/2015 Completed Influenza 05/06/2016 Completed Influenza 04/20/2017 Completed Influenza 04/27/2018 Completed Influenza 04/09/2020 Completed (PCV13)Pneumococcal 07/25/2017 Completed (PPSV23)Pneumococcal 03/20/2009 Completed
--- OUTSIDE RECORDS SUMMARY | 2023-03-09 21:13 | External Medical Summary | Continuity Of Care Document ---
Author Name Unknown Address [address] [place] [address] Organization [facility] () Care Team Providers Care Assembler For Puller Over Machine Name Role Phone Pal Child Primary Care Provider [phone] Problems Code Description Start Date End Date [...] adjustment of urinary device 01/29/2020 Active Z79.01 assisted (current) use of anticoagulants 01/28 Active B34.2 Coronavirus infection, unspecified 03/04/2020 0 03/08/2020 Completed Z86.19 Personal history of other infectious and parasitic diseases 03/09/2020 Active U07.1 COVID-19 03/04/2020 Active VITAL SIGNS Date Time Diastolic blood pressure Systolic blood pressure Body height Body weight Temperature SpO2 Blood Sugar Pulse Respirations 16398 101 48888 6 85.00 mm[Hg] - Sitting 163.00 mm[Hg] - Sitting 97.80 Tympanic 63.00/ min 18.00/min 65505 101 42487 8 43107 103 69353 6 69489 126 92568 4 235.20 NI Immunizations Vaccine Date Status COVID-19 08/02/2020 Completed Influenza 05/07/2014 Completed Influenza 05/13/2015 Completed Influenza 05/06/2016 Completed Influenza 04/20/2017 Completed Influenza 04/27/2018 Completed Influenza 04/09/2020 Completed (PCV13)Pneumococcal 07/25/2017 Completed (PPSV23)Pneumococcal 03/20/2009 Completed
--- OUTSIDE RECORDS SUMMARY | 2023-03-09 21:13 | External Medical Summary | Continuity Of Care Document ---
Author Name Unknown Address [address] [place] [address] [place] [address] Organization [facility] () Care Team Providers Care Councilperson Name Role Phone Pal Child Primary Care Provider [phone] Problems Code Description Start Date End Date [...] adjustment of urinary device 01/29/2020 Active Z79.01 jail (current) use of anticoagulants 01/28 Active B34.2 Coronavirus infection, unspecified 03/04/2020 0 03/08/2020 Completed Z86.19 Personal history of other infectious and parasitic diseases 03/09/2020 Active U07.1 COVID-19 03/04/2020 Active VITAL SIGNS Date Time Diastolic blood pressure Systolic blood pressure Body height Body weight Temperature SpO2 Blood Sugar Pulse Respirations 66343 101 10432 6 85.00 mm[Hg] - Sitting 163.00 mm[Hg] - Sitting 97.80 Tympanic 63.00/ min 18.00/min 31424 101 84063 8 10875 103 02908 6 Immunizations Vaccine Date Status Influenza 05/07/2014 Completed Influenza 05/13/2015 Completed Influenza 05/06/2016 Completed Influenza 04/20/2017 Completed Influenza 04/27/2018 Completed Influenza 04/09/2020 Completed (PCV13)Pneumococcal 07/25/2017 Completed (PPSV23)Pneumococcal 03/20/2009 Completed
--- OUTSIDE RECORDS SUMMARY | 2023-03-09 21:13 | External Medical Summary | Continuity Of Care Document ---
Author Name Unknown Address [address] [address] [address] Organization [facility] () Care Team Providers Care Guest Services Name Role Phone Pal Child Primary Care Provider [phone] Problems Code Description Start Date End Date [...] adjustment of urinary device 01/29/2020 Active Z79.01 [facility] (current) use of anticoagulants 01/28 Active B34.2 Coronavirus infection, unspecified 03/04/2020 0 03/08/2020 Completed Z86.19 Personal history of other infectious and parasitic diseases 03/09/2020 Active U07.1 COVID-19 03/04/2020 Active VITAL SIGNS Date Time Diastolic blood pressure Systolic blood pressure Body height Body weight Temperature SpO2 Blood Sugar Pulse Respirations 03409 101 68646 6 85.00 mm[Hg] - Sitting 163.00 mm[Hg] - Sitting 97.80 Tympanic 63.00/ min 18.00/min 82757 101 46369 8 34063 103 71750 6 54575 126 07737 4 235.20 NI Immunizations Vaccine Date Status COVID-19 08/02/2020 Completed Influenza 05/07/2014 Completed Influenza 05/13/2015 Completed Influenza 05/06/2016 Completed Influenza 04/20/2017 Completed Influenza 04/27/2018 Completed Influenza 04/09/2020 Completed (PCV13)Pneumococcal 07/25/2017 Completed (PPSV23)Pneumococcal 03/20/2009 Completed
--- OUTSIDE RECORDS SUMMARY | 2023-03-09 21:13 | External Medical Summary | Continuity Of Care Document ---
Author Name Unknown Address [address] [address] Organization [facility] () Care Team Providers Care Marketing Copywriter Name Role Phone Pal Child Primary Care Provider [phone] Problems Code Description Start Date End Date [...] Temperature SpO2 Blood Sugar Pulse Respirations 101 84281 0 231.00 NI 101 11618 4 87.00 mm[Hg] - Sitting 174.00 mm[Hg] - Sitting 98.90 Tympanic 63.00/ min 18.00/min 108 92819 7 231.50 NI 115 31652 6 52.00 mm[Hg] - Sitting 95.00 mm[Hg] - Sitting 98.10 Tympanic 91.00 % 60.00/ min Immunizations Vaccine Date Status COVID-19 08/02/2020 Completed COVID-19 08/23/2020 Completed COVID-19 05/11/2021 Completed Influenza 05/07/2014 Completed Influenza 05/13/2015 Completed Influenza 05/06/2016 Completed Influenza 04/20/2017 Completed Influenza 04/27/2018 Completed Influenza 04/09/2020 Completed (PCV13)Pneumococcal 07/25/2017 Completed (PPSV23)Pneumococcal 03/20/2009 Completed
--- OUTSIDE RECORDS SUMMARY | 2023-03-09 21:13 | External Medical Summary | Continuity Of Care Document ---
Author Name Unknown Address [address] [place] [address] Organization [facility] () Care Team Providers Care Development Intern Name Role Phone Pal Child Primary Care Provider [phone] Problems Code Description Start Date End Date [...] adjustment of urinary device 01/29/2020 Active Z79.01 physiological chemist (current) use of anticoagulants 01/28 Active B34.2 Coronavirus infection, unspecified 03/04/2020 0 03/08/2020 Completed Z86.19 Personal history of other infectious and parasitic diseases 03/09/2020 Active U07.1 COVID-19 03/04/2020 Active VITAL SIGNS Date Time Diastolic blood pressure Systolic blood pressure Body height Body weight Temperature SpO2 Blood Sugar Pulse Respirations 201 19677 3 81.00 mm[Hg] - Sitting 160.00 mm[Hg] - Sitting 245.80 NI 65.00/ min 18.00/min 201 19789 2 98.60 Forehead Scan 204 06196 1 Immunizations Vaccine Date Status COVID-19 08/02/2020 Completed COVID-19 08/23/2020 Completed COVID-19 05/11/2021 Completed Influenza 05/07/2014 Completed Influenza 05/13/2015 Completed Influenza 05/06/2016 Completed Influenza 04/20/2017 Completed Influenza 04/27/2018 Completed Influenza 04/09/2020 Completed (PCV13)Pneumococcal 07/25/2017 Completed (PPSV23)Pneumococcal 03/20/2009 Completed
--- OUTSIDE RECORDS SUMMARY | 2023-03-09 21:13 | External Medical Summary | Continuity of Care Document ---
Author Name Unknown Organization [facility] [address] [facility] 2 Address [address] [address] Care Team Providers Care Transportation Maintenance Supervisor Name Role Phone Pal Child Primary Care Physician [phone] Encounter [facility] [id number] Date(s): 06/09/20 - 06/09/20 [facility] [address] [facility] [address] [address] [place] Encounter Diagnosis Other seborrheic dermatitis(Discharge Diagnosis) - 06/09/20 Other specified follicular disorders(Discharge Diagnosis) - 06/09/20 Inflamed seborrheic keratosis(Discharge Diagnosis) - 06/09/20 Discharge Disposition: Home or Self Care Attending Physician: MD Levine Thomas A Referring Physician: MD Levine Thomas A Allergies, Adverse Reactions, Alerts Substance Reaction Severity Status gentamicin hives and breathing difficulty Active ibuprofen hives Moderate Active aminoglycoside antibiotics unknown A ctive Cipro rash on skin Active Valium rash Active quinolones (fluoroquinolone antibiotics) unknown Active NSAIDs unknown Active Allergy Not found in Search ibupain-unknown Active Assessment and Plan Extracted from: Title:Clinical Document Author:MD Abner, [facility] Date:06/09/20 OUTPATIENT NOTE Name: Keven GERMAIN Patient Number:1 [id number] : 1950 Date of Service: 06/09/2020 Lucho Keven Germain returns for reevaluation. His prior history of atypical nevi. He has multiple seborrheic keratoses 1 of which is inflamed on the right upper back, but is not bothering and requires no further treatment. He has noted a follicular eruption on the lateral aspect of the neck bilaterally which may sometimes be irritated by his shirt collar. This appears consistent with folliculitis. He was given a written prescription for clindamycin lotion 1% to apply on a twice daily basis until clear. He may use Dial soap for bathing. Review of systems medications allergies as noted on the chart. Patient's health status has not changed. He was admitted to the hospital for cellulitis with septicemia since his last visit as well as having Covid. His health is currently stable. Examination reveals pleasant well-nourished white male type II skin is alert and oriented x3 with normal mood and affect. Examination of the scalp, head, neck, back, chest, arms, hands, fingers, abdominal area feels the findings noted above and is otherwise unremarkable. The patient will return in 1 year for reevaluation. [...] rectal suppository Start: 09/25/13 15:47:00, 1 supp, LA, Daily, PRN: as needed for constipation Start [...] Start Date: 06/09/20 Status: Ordered Mental Status 06/09/20 Barriers to Learning one year None evide [...] Effective Dates Health Status Clinical Service Informant Other seborrheic dermatitis Discharge Diagnosis 06/09/20 Other specified follicular disorders Discharge Diagnosis 06/09/20 Inflamed seborrheic keratosis Discharge Diagnosis 06/09/20 Procedures Procedure Date Related Diagnosis Body Site [...]
--- OUTSIDE RECORDS SUMMARY | 2023-03-09 21:13 | External Medical Summary | Continuity Of Care Document ---
Author Name Unknown Address [address] [place] [address] Organization [facility] () Care Team Providers Care Shoes Salesperson Name Role Phone Pal Child Primary Care Provider [phone] Problems Code Description Start Date End Date [...] adjustment of urinary device 01/29/2020 Active Z79.01 [facility] (current) use of anticoagulants 01/28 Active B34.2 Coronavirus infection, unspecified 03/04/2020 0 03/08/2020 Completed Z86.19 Personal history of other infectious and parasitic diseases 03/09/2020 Active U07.1 COVID-19 03/04/2020 Active VITAL SIGNS Date Time Diastolic blood pressure Systolic blood pressure Body height Body weight Temperature SpO2 Blood Sugar Pulse Respirations 63547 101 96824 6 85.00 mm[Hg] - Sitting 163.00 mm[Hg] - Sitting 97.80 Tympanic 63.00/ min 18.00/min 29034 101 06637 8 88941 103 34761 6 41665 126 62130 4 235.20 NI Immunizations Vaccine Date Status COVID-19 08/02/2020 Completed Influenza 05/07/2014 Completed Influenza 05/13/2015 Completed Influenza 05/06/2016 Completed Influenza 04/20/2017 Completed Influenza 04/27/2018 Completed Influenza 04/09/2020 Completed (PCV13)Pneumococcal 07/25/2017 Completed (PPSV23)Pneumococcal 03/20/2009 Completed
--- OUTSIDE RECORDS SUMMARY | 2023-03-09 21:13 | External Medical Summary | Continuity Of Care Document ---
Author Name Unknown Address [address] [address] Organization [facility] () Care Team Providers Care Clinical Marketing Manager Name Role Phone Pal Child Primary Care Provider [phone] Problems Code Description Start Date End Date [...] Temperature SpO2 Blood Sugar Pulse Respirations 101 42588 0 231.00 NI 101 56993 4 87.00 mm[Hg] - Sitting 174.00 mm[Hg] - Sitting 98.90 Tympanic 63.00/ min 18.00/min 108 39887 7 231.50 NI 115 98831 6 52.00 mm[Hg] - Sitting 95.00 mm[Hg] - Sitting 98.10 Tympanic 91.00 % 60.00/ min Immunizations Vaccine Date Status COVID-19 08/02/2020 Completed COVID-19 08/23/2020 Completed COVID-19 05/11/2021 Completed Influenza 05/07/2014 Completed Influenza 05/13/2015 Completed Influenza 05/06/2016 Completed Influenza 04/20/2017 Completed Influenza 04/27/2018 Completed Influenza 04/09/2020 Completed (PCV13)Pneumococcal 07/25/2017 Completed (PPSV23)Pneumococcal 03/20/2009 Completed
--- OUTSIDE RECORDS SUMMARY | 2023-03-09 21:13 | External Medical Summary | Continuity Of Care Document ---
Author Name Unknown Address [address] [place] [address] Organization [facility] () Care Team Providers Care Social Service Liaison Name Role Phone Pal Child Primary Care Provider [phone] Problems Code Description Start Date End Date [...] adjustment of urinary device 01/29/2020 Active Z79.01 group home (current) use of anticoagulants 01/28 Active B34.2 Coronavirus infection, unspecified 03/04/2020 0 03/08/2020 Completed Z86.19 Personal history of other infectious and parasitic diseases 03/09/2020 Active U07.1 COVID-19 03/04/2020 Active VITAL SIGNS Date Time Diastolic blood pressure Systolic blood pressure Body height Body weight Temperature SpO2 Blood Sugar Pulse Respirations 101 37809 5 71.00 mm[Hg] - Sitting 134.00 mm[Hg] - Sitting 97.20 Tympanic 76.00/ min 18.00/min 103 70920 5 253.00 NI Immunizations Vaccine Date Status COVID-19 08/02/2020 Completed COVID-19 08/23/2020 Completed COVID-19 05/11/2021 Completed Influenza 05/07/2014 Completed Influenza 05/13/2015 Completed Influenza 05/06/2016 Completed Influenza 04/20/2017 Completed Influenza 04/27/2018 Completed Influenza 04/09/2020 Completed (PCV13)Pneumococcal 07/25/2017 Completed (PPSV23)Pneumococcal 03/20/2009 Completed
--- OUTSIDE RECORDS SUMMARY | 2023-03-09 21:13 | External Medical Summary | Continuity Of Care Document ---
Author Name Unknown Address [address] [place] [address] Organization [facility] () Care Team Providers Care Area Counselor Name Role Phone Pal Child Primary Care Provider [phone] Problems Code Description Start Date End Date [...] [facility] (current) use of anticoagulants 01/28 Active B34.2 Coronavirus infection, unspecified 03/04/2020 0 03/08/2020 Completed Z86.19 Personal history of other infectious and parasitic diseases 03/09/2020 Active U07.1 COVID-19 03/04/2020 Active VITAL SIGNS Date Time Diastolic blood pressure Systolic blood pressure Body height Body weight Temperature SpO2 Blood Sugar Pulse Respirations 88512 101 41830 6 85.00 mm[Hg] - Sitting 163.00 mm[Hg] - Sitting 97.80 Tympanic 63.00/ min 18.00/min 62852 101 07270 8 43756 103 43011 6 Immunizations Vaccine Date Status Influenza 05/07/2014 Completed Influenza 05/13/2015 Completed Influenza 05/06/2016 Completed Influenza 04/20/2017 Completed Influenza 04/27/2018 Completed Influenza 04/09/2020 Completed (PCV13)Pneumococcal 07/25/2017 Completed (PPSV23)Pneumococcal 03/20/2009 Completed
--- OUTSIDE RECORDS SUMMARY | 2023-03-09 21:14 | External Medical Summary | Continuity Of Care Document ---
Author Name Unknown Address [address] [address] Organization [facility] () Care Team Providers Care Patch Worker Name Role Phone Pal Child Primary Care Provider [phone] Problems Code Description Start Date End Date Status A40.1 Sepsis d/t streptococcus, group B 01/29/2020 Active R53.1 Weakness 01/29/2020 Active R26.2 Difficulty in walking, NEC 01/29/2020/00/000 0 Active L03.115 Cellulitis of right lower limb 01/29/2020 Active G82.52 Quadriplegia, C1-C4 incomplete 01/29/2020 Active R33.9 Retention of urine, unspecified 01/29/2020/0 Active K21.9 Gastro-esophageal reflux dz w/o eso 01/29/2020 Active 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 01/29/2020 Active E66.09 Oth obesity d/t excess calories 01/29/2020/0 Active E78.2 Mixed hyperlipidemia 01/29/2020 Acti ve G47.00 Insomnia, unspecified 01/29/2020 Act jon F41.1 Generalized anxiety disorder 01/29/2020/00/0 000 Active F32.0 MDD, single episode, mild 01/29/2020 Active 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,bladder,uns 01/29/2020 Active Z87.440 Personal history urinary infections 01/29/2020 Active Z86.718 Persnl histry oth venous throm&embo 01/29/2020 Active Z46.6 Encntr fittin&adjust urinary device 01/29/2020 Active Z79.01 intermediate manager use of anticoagulants 01/29/2020 00 Active VITAL SIGNS Date Time Diastolic blood pressure Systolic blood pressure Body height Body weight Temperature SpO2 Blood Sugar Pulse Respirations 701 13190 2 58.00 mm[Hg] - Sitting 109.00 mm[Hg] - Sitting 241.00 NI 98.00 Tympanic 73.00 /min 18.00 breaths/min 722 25163 1 90.00 mm[Hg] - Sitting 154.00 mm[Hg] - Sitting 96.90 Tympanic 96.00 % 74.00 /min 18.00 breaths/min 2 46484 4 73 NI 230.00 NI 67649 4 90.00 mm[Hg] - Sitting 154.00 mm[Hg] - Sitting 230.00 NI 96.90 Tympanic 74.00 /min 18.00 breaths/min 722 47787 4 75.00 mm[Hg] - Sitting 150.00 mm[Hg] - Sitting 98.90 Tympanic 77.00 /min 19.00 breaths/min 2 18246 2 89.00 mm[Hg] - Sitting 157.00 mm[Hg] - Sitting 99.50 Tympanic 76.00 /min 18.00 breaths/min 723 42254 6 89.00 mm[Hg] - Sitting 157.00 mm[Hg] - Sitting 99.50 Forehead Scan 93.00 % 76.00 /min 18.00 breaths/min 723 52151 8 89.00 mm[Hg] - Lying Down 150.00 mm[Hg] - Lying Down 97.70 Forehead Scan 93.00 % 73.00 /min 18.00 breaths/min 3 95941 5 89.00 mm[Hg] - Sitting 150.00 mm[Hg] - Sitting 97.70 Tympanic 723 06168 8 73.00 /min 18.00 breaths/min 723 30439 5 80.00 mm[Hg] - Sitting 155.00 mm[Hg] - Sitting 98.10 Tympanic 78.00 /min 19.00 breaths/min 724 20180 0 80.00 mm[Hg] - Sitting 136.00 mm[Hg] - Sitting 97.20 Tympanic 78.00 /min 18.00 breaths/min 4 49886 5 80.00 mm[Hg] - Sitting 136.00 mm[Hg] - Sitting 97.20 Tympanic 93.00 % 78.00 /min 18.00 breaths/min 4 39397 7 91.00 mm[Hg] - Lying Down 152.00 mm[Hg] - Lying Down 97.80 Tympanic 98.00 % 67.00 /min 18.00 breaths/min 35312 2 91.00 mm[Hg] - Sitting 152.00 mm[Hg] - Sitting 98.70 Tympanic 67.00 /min 18.00 breaths/min 4 02637 7 75.00 mm[Hg] - Sitting 145.00 mm[Hg] - Sitting 98.80 Tympanic 70.00 /min 18.00 breaths/min 4 63513 0 72.00 mm[Hg] - Lying Down 128.00 mm[Hg] - Lying Down 97.00 Tympanic 93.00 % 71.00 /min 18.00 breaths/min 77664 0 72.00 mm[Hg] - Sitting 128.00 mm[Hg] - Sitting 97.00 Tympanic 70.00 /min 18.00 breaths/min 27259 1 63.00 mm[Hg] - Lying Down 120.00 mm[Hg] - Lying Down 98.60 Forehead Scan 94.00 % 80.00 /min 18.00 breaths/min 5 35837 3 79.00 mm[Hg] - Lying Down 135.00 mm[Hg] - Lying Down 97.60 Tympanic 94.00 % 65.00 /min 18.00 breaths/min 6 56052 9 63.00 mm[Hg] - Lying Down 113.00 mm[Hg] - Lying Down 98.40 Forehead Scan 94.00 % 64.00 /min 18.00 breaths/min 6 04943 1 72.00 mm[Hg] - Lying Down 135.00 mm[Hg] - Lying Down 97.80 Tympanic 92.00 % 70.00 /min 18.00 breaths/min 7 69347 5 74.00 mm[Hg] - Sitting 133.00 mm[Hg] - Sitting 96.50 Tympanic 96.00 % 64.00 /min 18.00 breaths/min Immunizations Vaccine Date Status Influenza 05/07/2014 Completed Influenza 05/13/2015 Completed Influenza 05/06/2016 Completed Influenza 04/20/2017 Completed Influenza 04/27/2018 Completed (PCV13)Pneumococcal 07/25/2017 Completed (PPSV23)Pneumococcal 03/20/2009 Completed INSURANCE PROVIDERS Policy Number Group Number Description Effective Date End Date [id number] [employer] 07/10/2015 12/08/2019 [id number] [employer] 10/22/2013 07/09/2015
--- OUTSIDE RECORDS SUMMARY | 2023-03-09 21:14 | External Medical Summary | Continuity Of Care Document ---
Author Name Unknown Address [address] [address] Organization [facility] () Care Team Providers Care Toy Assembler Name Role Phone Pal Chlid Primary Care Provider [phone] Problems Code Description Start Date End Date [...] adjustment of urinary device 01/29/2020 Active Z79.01 [facility] (current) use of anticoagulants 01/28 Active B34.2 Coronavirus infection, unspecified 03/04/2020 0 03/08/2020 Completed Z86.19 Personal history of other infectious and parasitic diseases 03/09/2020 Active VITAL SIGNS Date Time Diastolic blood pressure Systolic blood pressure Body height Body weight Temperature SpO2 Blood Sugar Pulse Respirations 101 24973 9 68.00 mm[Hg] - Sitting 155.00 mm[Hg] - Sitting 233.80 NI 97.50 Tympanic 62.00/ min 18.00/min Immunizations Vaccine Date Status Influenza 05/07/2014 Completed Influenza 05/13/2015 Completed Influenza 05/06/2016 Completed Influenza 04/20/2017 Completed Influenza 04/27/2018 Completed Influenza 04/09/2020 Completed (PCV13)Pneumococcal 07/25/2017 Completed (PPSV23)Pneumococcal 03/20/2009 Completed
--- OUTSIDE RECORDS SUMMARY | 2023-03-09 21:14 | External Medical Summary | Continuity Of Care Document ---
Author Name Unknown Address [address] [place] [address] [address] Organization [facility] () Care Team Providers Care Ivory Carver Name Role Phone Pal Child Primary Care Provider [phone] Problems Code Description Start Date End Date [...] adjustment of urinary device 01/29/2020 Active Z79.01 [facility] (current) use of anticoagulants 01/28 Active B34.2 Coronavirus infection, unspecified 03/04/2020 0 03/08/2020 Completed Z86.19 Personal history of other infectious and parasitic diseases 03/09/2020 Active VITAL SIGNS Date Time Diastolic blood pressure Systolic blood pressure Body height Body weight Temperature SpO2 Blood Sugar Pulse Respirations 005 86300 5 235.60 NI 101 69121 9 68.00 mm[Hg] - Sitting 155.00 mm[Hg] - Sitting 233.80 NI 97.50 Tympanic 62.00/ min 18.00/min Immunizations Vaccine Date Status Influenza 05/07/2014 Completed Influenza 05/13/2015 Completed Influenza 05/06/2016 Completed Influenza 04/20/2017 Completed Influenza 04/27/2018 Completed Influenza 04/09/2020 Completed (PCV13)Pneumococcal 07/25/2017 Completed (PPSV23)Pneumococcal 03/20/2009 Completed
--- OUTSIDE RECORDS SUMMARY | 2023-03-09 21:14 | External Medical Summary | Continuity Of Care Document ---
Author Name Unknown Address [address] [place] [address] Organization [facility] () Care Team Providers Care Planned Giving Officer Name Role Phone Pal Child Primary Care Provider [phone] Problems Code Description Start Date End Date [...] adjustment of urinary device 01/29/2020 Active Z79.01 [facility] (current) use of anticoagulants 01/28 Active B34.2 Coronavirus infection, unspecified 03/04/2020 0 03/08/2020 Completed Z86.19 Personal history of other infectious and parasitic diseases 03/09/2020 Active VITAL SIGNS Date Time Diastolic blood pressure Systolic blood pressure Body height Body weight Temperature SpO2 Blood Sugar Pulse Respirations 005 21867 5 235.60 NI 101 93994 9 68.00 mm[Hg] - Sitting 155.00 mm[Hg] - Sitting 233.80 NI 97.50 Tympanic 62.00/ min 18.00/min Immunizations Vaccine Date Status Influenza 05/07/2014 Completed Influenza 05/13/2015 Completed Influenza 05/06/2016 Completed Influenza 04/20/2017 Completed Influenza 04/27/2018 Completed Influenza 04/09/2020 Completed (PCV13)Pneumococcal 07/25/2017 Completed (PPSV23)Pneumococcal 03/20/2009 Completed
--- OUTSIDE RECORDS SUMMARY | 2023-03-09 21:14 | External Medical Summary | Continuity Of Care Document ---
Author Name Unknown Address [address] [place] [address] [facility] () Care Team Providers Care Imaging Scheduler Name Role Phone Pal Child Primary Care Provider [phone] VITAL SIGNS Date Time Diastolic blood pressure Systolic blood pressure Body height Body weight Temperature SpO2 Blood Sugar Pulse Respirations 701 68607 2 58.00 mm[Hg] - Sitting 109.00 mm[Hg] - Sitting 241.00 NI 98.00 Tympanic 73.00 /min 18.00 breaths/min 722 44464 1 90.00 mm[Hg] - Sitting 154.00 mm[Hg] - Sitting 96.90 Tympanic 96.00 % 74.00 /min 18.00 breaths/min 722 06591 4 73 [place] 230[place]00 [place] [address] 722 12028 4 90.00 mm[Hg] - Sitting 154.00 mm[Hg] - Sitting 230.00 NI 96.90 Tympanic 74.00 /min 18.00 breaths/min 45176 722 55853 4 75.00 mm[Hg] - Sitting 150.00 mm[Hg] - Sitting 98.90 Tympanic 77.00 /min 19.00 breaths/min 87316 722 44328 2 89.00 mm[Hg] - Sitting 157.00 mm[Hg] - Sitting 99.50 Tympanic 76.00 /min 18.00 breaths/min 63576 723 18993 6 89.00 mm[Hg] - Sitting 157.00 mm[Hg] - Sitting 99.50 Forehead Scan 93.00 % 76.00 /min 18.00 breaths/min Immunizations Vaccine Date Status Influenza 05/07/2014 Completed Influenza 05/13/2015 Completed Influenza 05/06/2016 Completed Influenza 04/20/2017 Completed Influenza 04/27/2018 Completed (PCV13)Pneumococcal 07/25/2017 Completed (PPSV23)Pneumococcal 03/20/2009 Completed INSURANCE PROVIDERS Policy Number Group Number Description Effective Date End Date [id number] [employer] 07/10/2015 12/08/2019 [id number] [place] 10/22/2013 07/09/2015
--- OUTSIDE RECORDS SUMMARY | 2023-03-09 21:14 | External Medical Summary | Continuity Of Care Document ---
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 04/08/2019 Active E78.5 Hyperlipidemia, unspecified 04/08/2019 00 Active F32.9 MDD, single episode, unspecified 04/08/2019 Active F41.9 Anxiety disorder, unspecified 04/08/2019 Active K21.9 Gastro-esophageal reflux dz w/o eso 04/08/2019 Active G47.00 Insomnia, unspecified 04/08/2019 Act jon Z86.718 Persnl histry oth venous throm&embo 04/08/2019 Active Z46.6 Encntr fittin&adjust urinary device 04/08/2019 Active Z79.01 joint terminal attack controller use of anticoagulants 04/08/2019 00/0 Active 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,bladder,uns 04/08/2019 Active S82.201D Uns fx,shft rt tibia,SE,clsd,routn 06/12/2019 0 Active R53.1 Weakness 08/01/2019 Active VITAL SIGNS Date Time Diastolic blood pressure Systolic blood pressure Body height Body weight Temperature SpO2 Blood Sugar Pulse Respirations 128 56585 5 63.00 mm[Hg] - Sitting 104.00 mm[Hg] - Sitting 97.50 Tympanic 92.00 % 59.00 /min 16.00 breaths/min 31968 201 50473 8 75.00 mm[Hg] - Sitting 143.00 mm[Hg] - Sitting 240.50 NI 97.80 Forehead Scan 64.00 /min 16.00 breaths/min Immunizations Vaccine Date Status Influenza 05/07/2014 Completed Influenza 05/13/2015 Completed Influenza 05/06/2016 Completed Influenza 04/20/2017 Completed Influenza 04/27/2018 Completed (PCV13)Pneumococcal 07/25/2017 Completed (PPSV23)Pneumococcal 03/20/2009 Completed INSURANCE PROVIDERS Policy Number Group Number Description Effective Date End Date [id number] [employer] 07/10/2015 [id number] [employer] 10/22/2013 07/09/2015
--- OUTSIDE RECORDS SUMMARY | 2023-03-09 21:14 | External Medical Summary | Continuity Of Care Document ---
Author Name Unknown Address [address] [address] Organization 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 01/29/2020 00 Active VITAL SIGNS Date Time Diastolic blood pressure Systolic blood pressure Body height Body weight Temperature SpO2 Blood Sugar Pulse Respirations 80188 0 72.00 mm[Hg] - Sitting 128.00 mm[Hg] - Sitting 97.00 Tympanic 70.00 /min 18.00 breaths/min 29271 1 63.00 mm[Hg] - Lying Down 120.00 mm[Hg] - Lying Down 98.60 Forehead Scan 94.00 % 80.00 /min 18.00 breaths/min 5 04322 3 79.00 mm[Hg] - Lying Down 135.00 mm[Hg] - Lying Down 97.60 Tympanic 94.00 % 65.00 /min 18.00 breaths/min 6 32004 9 63.00 mm[Hg] - Lying Down 113.00 mm[Hg] - Lying Down 98.40 Forehead Scan 94.00 % 64.00 /min 18.00 breaths/min 6 96033 1 72.00 mm[Hg] - Lying Down 135.00 mm[Hg] - Lying Down 97.80 Tympanic 92.00 % 70.00 /min 18.00 breaths/min 7 34960 5 74.00 mm[Hg] - Sitting 133.00 mm[Hg] - Sitting 96.50 Tympanic 96.00 % 64.00 /min 18.00 breaths/min 7 69572 4 230.00 NI 8 16371 1 77.00 mm[Hg] - Lying Down 131.00 mm[Hg] - Lying Down 98.10 Tympanic 92.00 % 65.00 /min 18.00 breaths/min 8 49555 2 68.00 mm[Hg] - Lying Down 126.00 mm[Hg] - Lying Down 97.30 Tympanic 94.00 % 64.00 /min 18.00 breaths/min 9 81357 8 76.00 mm[Hg] - Lying Down 120.00 mm[Hg] - Lying Down 98.70 Tympanic 92.00 % 72.00 /min 16.00 breaths/min 729 79607 9 79.00 mm[Hg] - Sitting 128.00 mm[Hg] - Sitting 97.70 Tympanic 97.00 % 72.00 /min 18.00 breaths/min 730 85604 7 97.00 mm[Hg] - Sitting 154.00 mm[Hg] - Sitting 99.30 Tympanic 96.00 % 66.00 /min 18.00 breaths/min 730 98533 4 76.00 mm[Hg] - Lying Down 133.00 mm[Hg] - Lying Down 97.00 Tympanic 93.00 % 58.00 /min 18.00 breaths/min 731 60930 5 72.00 mm[Hg] - Sitting 121.00 mm[Hg] - Sitting 97.80 Tympanic 95.00 % 69.00 /min 18.00 breaths/min 731 76197 1 71.00 mm[Hg] - Sitting 120.00 mm[Hg] - Sitting 98.60 Tympanic 96.00 % 72.00 /min 18.00 breaths/min 801 25068 5 62.00 mm[Hg] - Lying Down 99.00 mm[Hg] - Lying Down 97.70 Tympanic 93.00 % 58.00 /min 18.00 breaths/min 801 20180 7 65.00 mm[Hg] - Sitting 132.00 mm[Hg] - Sitting 98.90 Tympanic 95.00 % 68.00 /min 18.00 breaths/min 801 45056 4 230.00 NI 801 25548 0 65.00 mm[Hg] - Sitting 132.00 mm[Hg] - Sitting 98.90 Tympanic 68.00 /min 18.00 breaths/min 802 04220 0 83.00 mm[Hg] - Lying Down 147.00 mm[Hg] - Lying Down 97.20 Tympanic 96.00 % 58.00 /min 18.00 breaths/min 802 70700 3 68.00 mm[Hg] - Sitting 122.00 mm[Hg] - Sitting 99.10 Tympanic 94.00 % 64.00 /min 18.00 breaths/min 803 13290 7 50.00 mm[Hg] - Lying Down 92.00 mm[Hg] - Lying Down 97.90 Tympanic 92.00 % 58.00 /min 18.00 breaths/min 803 01605 4 81.00 mm[Hg] - Lying Down 142.00 mm[Hg] - Lying Down 97.00 Tympanic 93.00 % 56.00 /min 18.00 breaths/min 803 33505 8 230.00 NI 803 76479 1 79.00 mm[Hg] - Sitting 145.00 mm[Hg] - Sitting 98.90 Forehead Scan 95.00 % 62.00 /min 18.00 breaths/min 804 14347 7 71.00 mm[Hg] - Sitting 127.00 mm[Hg] - Sitting 98.70 Tympanic 94.00 % 62.00 /min 18.00 breaths/min 804 26594 2 84.00 mm[Hg] - Lying Down 123.00 mm[Hg] - Lying Down 98.00 Tympanic 95.00 % 62.00 /min 18.00 breaths/min 805 10969 3 18.00 breaths/min 805 87086 8 66.00 mm[Hg] - Sitting 127.00 mm[Hg] - Sitting 99.10 Forehead Scan 94.00 % 71.00 /min 806 74271 2 76.00 mm[Hg] - Sitting 135.00 mm[Hg] - Sitting 97.70 Tympanic 92.00 % 59.00 /min 16.00 breaths/min 806 45227 2 67.00 mm[Hg] - Sitting 134.00 mm[Hg] - Sitting 97.10 Forehead Scan 95.00 % 73.00 /min 18.00 breaths/min 807 74653 2 76.00 mm[Hg] - Sitting 161.00 mm[Hg] - Sitting 98.90 Tympanic 95.00 % 64.00 /min 18.00 breaths/min 807 38034 5 81.00 mm[Hg] - Sitting 135.00 mm[Hg] - Sitting 99.10 Forehead Scan 95.00 % 65.00 /min 18.00 breaths/min 808 43968 7 78.00 mm[Hg] - Sitting 152.00 mm[Hg] - Sitting 98.00 Tympanic 96.00 % 72.00 /min 18.00 breaths/min 808 66384 9 70.00 mm[Hg] - Sitting 123.00 mm[Hg] - Sitting 98.90 Forehead Scan 95.00 % 64.00 /min 18.00 breaths/min 809 07556 8 77.00 mm[Hg] - Sitting 145.00 mm[Hg] - Sitting 98.10 Tympanic 95.00 % 67.00 /min 18.00 breaths/min 809 94611 0 75.00 mm[Hg] - Sitting 135.00 mm[Hg] - Sitting 98.40 Tympanic 95.00 % 71.00 /min 18.00 breaths/min 809 95345 4 78.00 mm[Hg] - Sitting 143.00 mm[Hg] - Sitting 99.10 Forehead Scan 97.00 % 60.00 /min 18.00 breaths/min 810 77055 0 73.00 mm[Hg] - Sitting 156.00 mm[Hg] - Sitting 98.00 Forehead Scan 99.00 % 67.00 /min 18.00 breaths/min 810 31222 4 62.00 mm[Hg] - Sitting 118.00 mm[Hg] - Sitting 99.50 Forehead Scan 94.00 % 66.00 /min 18.00 breaths/min 810 08610 7 234.60 NI 811 15810 0 75.00 mm[Hg] - Sitting 130.00 mm[Hg] - Sitting 98.30 Tympanic 93.00 % 74.00 /min 16.00 breaths/min 811 86507 1 71.00 mm[Hg] - Sitting 133.00 mm[Hg] - Sitting 98.30 Forehead Scan 94.00 % 78.00 /min 18.00 breaths/min 811 32679 9 82.00 mm[Hg] - Sitting 151.00 mm[Hg] - Sitting 99.10 Tympanic 93.00 % 66.00 /min 16.00 breaths/min 812 29832 9 75.00 mm[Hg] - Sitting 133.00 mm[Hg] - Sitting 98.90 Forehead Scan 97.00 % 65.00 /min 18.00 breaths/min 813 02623 3 82.00 mm[Hg] - Sitting 149.00 mm[Hg] - Sitting 98.00 Tympanic 95.00 % 70.00 /min 18.00 breaths/min 813 33941 0 69.00 mm[Hg] - Sitting 133.00 mm[Hg] - Sitting 98.90 Forehead Scan 96.00 % 67.00 /min 18.00 breaths/min 813 81025 0 75.00 mm[Hg] - Sitting 134.00 mm[Hg] - Sitting 97.80 Tympanic 95.00 % 65.00 /min 18.00 breaths/min 814 44299 5 71.00 mm[Hg] - Sitting 128.00 mm[Hg] - Sitting 98.90 Forehead Scan 94.00 % 67.00 /min 18.00 breaths/min 815 68043 3 66.00 mm[Hg] - Sitting 132.00 mm[Hg] - Sitting 99.10 Tympanic 93.00 % 67.00 /min 18.00 breaths/min 815 22949 6 75.00 mm[Hg] - Sitting 148.00 mm[Hg] - Sitting 98.90 Tympanic 97.00 % 68.00 /min 18.00 breaths/min 816 97022 8 76.00 mm[Hg] - Sitting 130.00 mm[Hg] - Sitting 97.80 Tympanic 96.00 % 62.00 /min 16.00 breaths/min 816 90585 0 75.00 mm[Hg] - Sitting 136.00 mm[Hg] - Sitting 98.50 Tympanic 95.00 % 71.00 /min 19.00 breaths/min 816 31623 2 74.00 mm[Hg] - Sitting 142.00 mm[Hg] - Sitting 97.00 Oral 97.00 % 84.00 /min 18.00 breaths/min 817 09336 5 72.00 mm[Hg] - Sitting 120.00 mm[Hg] - Sitting 98.90 Tympanic 96.00 % 71.00 /min 18.00 breaths/min 817 42337 2 818 96210 1 71.00 mm[Hg] - Sitting 131.00 mm[Hg] - Sitting 98.30 Tympanic 95.00 % 66.00 /min 18.00 breaths/min 818 50060 3 64.00 mm[Hg] - Sitting 142.00 mm[Hg] - Sitting 98.60 Tympanic 98.00 % 62.00 /min 18.00 breaths/min 818 45147 7 74.00 mm[Hg] - Sitting 130.00 mm[Hg] - Sitting 98.10 Forehead Scan 93.00 % 75.00 /min 18.00 breaths/min 819 44005 1 76.00 mm[Hg] - Sitting 132.00 mm[Hg] - Sitting 99.50 Forehead Scan 94.00 % 62.00 /min 18.00 breaths/min 819 27687 3 73.00 mm[Hg] - Sitting 138.00 mm[Hg] - Sitting 97.50 Tympanic 97.00 % 67.00 /min 18.00 breaths/min Immunizations Vaccine Date Status Influenza 05/07/2014 Completed Influenza 05/13/2015 Completed Influenza 05/06/2016 Completed Influenza 04/20/2017 Completed Influenza 04/27/2018 Completed (PCV13)Pneumococcal 07/25/2017 Completed (PPSV23)Pneumococcal 03/20/2009 Completed INSURANCE PROVIDERS Policy Number Group Number Description Effective Date End Date [id number] [employer] 07/10/2015 12/08/2019 [id number] [employer] 10/22/2013 07/09/2015
--- OUTSIDE RECORDS SUMMARY | 2023-03-09 21:14 | External Medical Summary | Continuity Of Care Document ---
Author Name Unknown Address [address] [place] [address] Organization [facility] () Care Team Providers Care Retail Chain Store Area Supervisor Name Role Phone Pal Child Primary Care Provider [phone] Problems Code Description Start Date End Date [...] Temperature SpO2 Blood Sugar Pulse Respirations 101 20376 9 68.00 mm[Hg] - Sitting 155.00 mm[Hg] - Sitting 233.80 NI 97.50 Tympanic 62.00/ min 18.00/min Immunizations Vaccine Date Status Influenza 05/07/2014 Completed Influenza 05/13/2015 Completed Influenza 05/06/2016 Completed Influenza 04/20/2017 Completed Influenza 04/27/2018 Completed Influenza 04/09/2020 Completed (PCV13)Pneumococcal 07/25/2017 Completed (PPSV23)Pneumococcal 03/20/2009 Completed
--- OUTSIDE RECORDS SUMMARY | 2023-03-09 21:14 | External Medical Summary | Continuity Of Care Document ---
Author Name Unknown Address [address] [address] 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,bladder,uns 04/08/2019 Active S82.201D Uns fx,shft rt tibia,SE,clsd,routn 06/12/2019 0 Active R53.1 Weakness 08/01/2019 12/20/2019 Completed M62.81 Muscle weakness (generalized) 12/20/2019 00/00/ 0000 Active VITAL SIGNS Date Time Diastolic blood pressure Systolic blood pressure Body height Body weight Temperature SpO2 Blood Sugar Pulse Respirations 601 29751 8 59.00 mm[Hg] - Sitting 130.00 mm[Hg] - Sitting 98.00 Tympanic 94.00 % 58.00 /min 18.00 breaths/min 601 98481 6 59.00 mm[Hg] - Sitting 130.00 mm[Hg] - Sitting 98.00 Tympanic 58.00 /min 18.00 breaths/min 601 68855 3 244.00 NI Immunizations Vaccine Date Status Influenza 05/07/2014 Completed Influenza 05/13/2015 Completed Influenza 05/06/2016 Completed Influenza 04/20/2017 Completed Influenza 04/27/2018 Completed (PCV13)Pneumococcal 07/25/2017 Completed (PPSV23)Pneumococcal 03/20/2009 Completed INSURANCE PROVIDERS Policy Number Group Number Description Effective Date End Date [id number] Blue Cross 07/10/2015 [id number] [employer] 10/22/2013 07/09/2015
--- OUTSIDE RECORDS SUMMARY | 2023-03-09 21:14 | External Medical Summary | Continuity Of Care Document ---
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 01/28 Active B34.2 Coronavirus infection, unspecified 03/04/2020 0 03/08/2020 Completed Z86.19 Personal history of other infectious and parasitic diseases 03/09/2020 Active U07.1 COVID-19 03/04/2020 Active VITAL SIGNS Date Time Diastolic blood pressure Systolic blood pressure Body height Body weight Temperature SpO2 Blood Sugar Pulse Respirations 101 31039 9 68.00 mm[Hg] - Sitting 155.00 mm[Hg] - Sitting 233.80 NI 97.50 Tympanic 62.00/ min 18.00/min Immunizations Vaccine Date Status Influenza 05/07/2014 Completed Influenza 05/13/2015 Completed Influenza 05/06/2016 Completed Influenza 04/20/2017 Completed Influenza 04/27/2018 Completed Influenza 04/09/2020 Completed (PCV13)Pneumococcal 07/25/2017 Completed (PPSV23)Pneumococcal 03/20/2009 Completed
--- OUTSIDE RECORDS SUMMARY | 2023-03-09 21:14 | External Medical Summary | Continuity Of Care Document ---
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 04/08/2019 00/ Active 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,bladder,uns 04/08/2019 Active S82.201D Uns fx,shft rt tibia,SE,clsd,routn 06/12/2019 0 Active R53.1 Weakness 08/01/2019 12/20/2019 Completed M62.81 Muscle weakness (generalized) 12/20/2019 00/00/ 0000 Active VITAL SIGNS Date Time Diastolic blood pressure Systolic blood pressure Body height Body weight Temperature SpO2 Blood Sugar Pulse Respirations 66011 701 52816 2 58.00 mm[Hg] - Sitting 109.00 mm[Hg] - Sitting 241.00 NI 98.00 Tympanic 73.00 /min 18.00 breaths/min Immunizations Vaccine Date Status Influenza 05/07/2014 Completed Influenza 05/13/2015 Completed Influenza 05/06/2016 Completed Influenza 04/20/2017 Completed Influenza 04/27/2018 Completed (PCV13)Pneumococcal 07/25/2017 Completed (PPSV23)Pneumococcal 03/20/2009 Completed INSURANCE PROVIDERS Policy Number Group Number Description Effective Date End Date [id number] Blue Cross 07/10/2015 12/08/2019 [id number] [employer] 10/22/2013 07/09/2015
--- OUTSIDE RECORDS SUMMARY | 2023-03-09 21:14 | External Medical Summary | Continuity Of Care Document ---
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 01/29/2020 00/0 Active B34.2 Coronavirus infection, unspecified 03/04/2020 0 03/08/2020 Completed Z86.19 Personal hstry oth infec&parasit dz 03/09/2020 Active VITAL SIGNS Date Time Diastolic blood pressure Systolic blood pressure Body height Body weight Temperature SpO2 Blood Sugar Pulse Respirations 80 89764 7 50.00 mm[Hg] - Lying Down 92.00 mm[Hg] - Lying Down 97.90 Tympanic 92.00 % 58.00 /min 18.00 breaths/min 803 07503 4 81.00 mm[Hg] - Lying Down 142.00 mm[Hg] - Lying Down 97.00 Tympanic 93.00 % 56.00 /min 18.00 breaths/min 803 51714 8 230.00 NI 803 40528 1 79.00 mm[Hg] - Sitting 145.00 mm[Hg] - Sitting 98.90 Forehead Scan 95.00 % 62.00 /min 18.00 breaths/min 804 77762 7 71.00 mm[Hg] - Sitting 127.00 mm[Hg] - Sitting 98.70 Tympanic 94.00 % 62.00 /min 18.00 breaths/min 804 34613 2 84.00 mm[Hg] - Lying Down 123.00 mm[Hg] - Lying Down 98.00 Tympanic 95.00 % 62.00 /min 18.00 breaths/min 805 94908 3 18.00 breaths/min 805 23062 8 66.00 mm[Hg] - Sitting 127.00 mm[Hg] - Sitting 99.10 Forehead Scan 94.00 % 71.00 /min 806 77284 2 76.00 mm[Hg] - Sitting 135.00 mm[Hg] - Sitting 97.70 Tympanic 92.00 % 59.00 /min 16.00 breaths/min 806 88466 2 67.00 mm[Hg] - Sitting 134.00 mm[Hg] - Sitting 97.10 Forehead Scan 95.00 % 73.00 /min 18.00 breaths/min 807 03096 2 76.00 mm[Hg] - Sitting 161.00 mm[Hg] - Sitting 98.90 Tympanic 95.00 % 64.00 /min 18.00 breaths/min 807 24242 5 81.00 mm[Hg] - Sitting 135.00 mm[Hg] - Sitting 99.10 Forehead Scan 95.00 % 65.00 /min 18.00 breaths/min 808 84484 7 78.00 mm[Hg] - Sitting 152.00 mm[Hg] - Sitting 98.00 Tympanic 96.00 % 72.00 /min 18.00 breaths/min 808 89751 9 70.00 mm[Hg] - Sitting 123.00 mm[Hg] - Sitting 98.90 Forehead Scan 95.00 % 64.00 /min 18.00 breaths/min 809 49228 8 77.00 mm[Hg] - Sitting 145.00 mm[Hg] - Sitting 98.10 Tympanic 95.00 % 67.00 /min 18.00 breaths/min 809 30971 0 75.00 mm[Hg] - Sitting 135.00 mm[Hg] - Sitting 98.40 Tympanic 95.00 % 71.00 /min 18.00 breaths/min 809 78585 4 78.00 mm[Hg] - Sitting 143.00 mm[Hg] - Sitting 99.10 Forehead Scan 97.00 % 60.00 /min 18.00 breaths/min 810 78875 0 73.00 mm[Hg] - Sitting 156.00 mm[Hg] - Sitting 98.00 Forehead Scan 99.00 % 67.00 /min 18.00 breaths/min 810 89838 4 62.00 mm[Hg] - Sitting 118.00 mm[Hg] - Sitting 99.50 Forehead Scan 94.00 % 66.00 /min 18.00 breaths/min 810 03976 7 234.60 NI 811 58503 0 75.00 mm[Hg] - Sitting 130.00 mm[Hg] - Sitting 98.30 Tympanic 93.00 % 74.00 /min 16.00 breaths/min 811 59458 1 71.00 mm[Hg] - Sitting 133.00 mm[Hg] - Sitting 98.30 Forehead Scan 94.00 % 78.00 /min 18.00 breaths/min 811 29471 9 82.00 mm[Hg] - Sitting 151.00 mm[Hg] - Sitting 99.10 Tympanic 93.00 % 66.00 /min 16.00 breaths/min 812 40963 9 75.00 mm[Hg] - Sitting 133.00 mm[Hg] - Sitting 98.90 Forehead Scan 97.00 % 65.00 /min 18.00 breaths/min 813 74888 3 82.00 mm[Hg] - Sitting 149.00 mm[Hg] - Sitting 98.00 Tympanic 95.00 % 70.00 /min 18.00 breaths/min 813 98970 0 69.00 mm[Hg] - Sitting 133.00 mm[Hg] - Sitting 98.90 Forehead Scan 96.00 % 67.00 /min 18.00 breaths/min 813 07267 0 75.00 mm[Hg] - Sitting 134.00 mm[Hg] - Sitting 97.80 Tympanic 95.00 % 65.00 /min 18.00 breaths/min 814 56889 5 71.00 mm[Hg] - Sitting 128.00 mm[Hg] - Sitting 98.90 Forehead Scan 94.00 % 67.00 /min 18.00 breaths/min 815 21305 3 66.00 mm[Hg] - Sitting 132.00 mm[Hg] - Sitting 99.10 Tympanic 93.00 % 67.00 /min 18.00 breaths/min 815 45222 6 75.00 mm[Hg] - Sitting 148.00 mm[Hg] - Sitting 98.90 Tympanic 97.00 % 68.00 /min 18.00 breaths/min 816 65646 8 76.00 mm[Hg] - Sitting 130.00 mm[Hg] - Sitting 97.80 Tympanic 96.00 % 62.00 /min 16.00 breaths/min 816 49886 0 75.00 mm[Hg] - Sitting 136.00 mm[Hg] - Sitting 98.50 Tympanic 95.00 % 71.00 /min 19.00 breaths/min 816 25109 2 74.00 mm[Hg] - Sitting 142.00 mm[Hg] - Sitting 97.00 Oral 97.00 % 84.00 /min 18.00 breaths/min 817 49308 5 72.00 mm[Hg] - Sitting 120.00 mm[Hg] - Sitting 98.90 Tympanic 96.00 % 71.00 /min 18.00 breaths/min 817 83875 2 818 79838 1 71.00 mm[Hg] - Sitting 131.00 mm[Hg] - Sitting 98.30 Tympanic 95.00 % 66.00 /min 18.00 breaths/min 818 38436 3 64.00 mm[Hg] - Sitting 142.00 mm[Hg] - Sitting 98.60 Tympanic 98.00 % 62.00 /min 18.00 breaths/min 818 04141 7 74.00 mm[Hg] - Sitting 130.00 mm[Hg] - Sitting 98.10 Forehead Scan 93.00 % 75.00 /min 18.00 breaths/min 819 81884 1 76.00 mm[Hg] - Sitting 132.00 mm[Hg] - Sitting 99.50 Forehead Scan 94.00 % 62.00 /min 18.00 breaths/min 819 23208 3 73.00 mm[Hg] - Sitting 138.00 mm[Hg] - Sitting 97.50 Tympanic 97.00 % 67.00 /min 18.00 breaths/min 826 51896 6 70.00 mm[Hg] - Sitting 118.00 mm[Hg] - Sitting 97.90 Tympanic 93.00 % 64.00 /min 18.00 breaths/min 901 94968 9 81.00 mm[Hg] - Sitting 169.00 mm[Hg] - Sitting 238.60 NI 97.80 Tympanic 65.00 /min 18.00 breaths/min Immunizations Vaccine Date Status Influenza 05/07/2014 Completed Influenza 05/13/2015 Completed Influenza 05/06/2016 Completed Influenza 04/20/2017 Completed Influenza 04/27/2018 Completed (PCV13)Pneumococcal 07/25/2017 Completed (PPSV23)Pneumococcal 03/20/2009 Completed INSURANCE PROVIDERS Policy Number Group Number Description Effective Date End Date [id number] Blue [employer] 07/10/2015 12/08/2019 [id number] [place] 10/22/2013 07/09/2015
--- OUTSIDE RECORDS SUMMARY | 2023-03-09 21:14 | External Medical Summary | Continuity Of Care Document ---
Author Name Unknown Address [address] [place] [address] Organization [facility] () Care Team Providers Care Stencil Printer Name Role Phone Pal Child Primary Care Provider [phone] Problems Code Description Start Date End Date [...] of urinary device 01/29/2020 Active Z79.01 intermediate (current) use of anticoagulants 01/28 Active B34.2 Coronavirus infection, unspecified 03/04/2020 0 03/08/2020 Completed Z86.19 Personal history of other infectious and parasitic diseases 03/09/2020 Active VITAL SIGNS Date Time Diastolic blood pressure Systolic blood pressure Body height Body weight Temperature SpO2 Blood Sugar Pulse Respirations 005 30188 5 235.60 NI 101 73354 9 68.00 mm[Hg] - Sitting 155.00 mm[Hg] - Sitting 233.80 NI 97.50 Tympanic 62.00/ min 18.00/min Immunizations Vaccine Date Status Influenza 05/07/2014 Completed Influenza 05/13/2015 Completed Influenza 05/06/2016 Completed Influenza 04/20/2017 Completed Influenza 04/27/2018 Completed Influenza 04/09/2020 Completed (PCV13)Pneumococcal 07/25/2017 Completed (PPSV23)Pneumococcal 03/20/2009 Completed
--- OUTSIDE RECORDS SUMMARY | 2023-03-09 21:14 | External Medical Summary | Continuity Of Care Document ---
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, C1-C4 incomplete 01/29/202000 Active R33.9 Retention of urine, unspecified 01/29/2020/0 Active K21.9 Gastro-esophageal reflux dz w/o eso 01/29/2020 Active 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 01/29/2020 Active E66.09 Oth obesity d/t excess calories 01/29/2020/0 Active E78.2 Mixed hyperlipidemia 01/29/2020 Acti ve G47.00 Insomnia, unspecified 01/29/2020 Act jon F41.1 Generalized anxiety disorder 01/29/2020/00/0 000 Active 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, single episode, mild 01/29/2020 Active VITAL SIGNS Date Time Diastolic blood pressure Systolic blood pressure Body height Body weight Temperature SpO2 Blood Sugar Pulse Respirations 701 99499 2 58.00 mm[Hg] - Sitting 109.00 mm[Hg] - Sitting 241.00 NI 98.00 Tympanic 73.00 /min 18.00 breaths/min 722 65097 1 90.00 mm[Hg] - Sitting 154.00 mm[Hg] - Sitting 96.90 Tympanic 96.00 % 74.00 /min 18.00 breaths/min 722 56204 4 73 NI 230.00 NI 2 95457 4 90.00 mm[Hg] - Sitting 154.00 mm[Hg] - Sitting 230.00 NI 96.90 Tympanic 74.00 /min 18.00 breaths/min 722 69632 4 75.00 mm[Hg] - Sitting 150.00 mm[Hg] - Sitting 98.90 Tympanic 77.00 /min 19.00 breaths/min 722 11781 2 89.00 mm[Hg] - Sitting 157.00 mm[Hg] - Sitting 99.50 Tympanic 76.00 /min 18.00 breaths/min 723 99922 6 89.00 mm[Hg] - Sitting 157.00 mm[Hg] - Sitting 99.50 Forehead Scan 93.00 % 76.00 /min 18.00 breaths/min 723 07388 8 89.00 mm[Hg] - Lying Down 150.00 mm[Hg] - Lying Down 97.70 Forehead Scan 93.00 % 73.00 /min 18.00 breaths/min 723 71300 5 89.00 mm[Hg] - Sitting 150.00 mm[Hg] - Sitting 97.70 Tympanic 723 66704 8 73.00 /min 18.00 breaths/min 723 55343 5 80.00 mm[Hg] - Sitting 155.00 mm[Hg] - Sitting 98.10 Tympanic 78.00 /min 19.00 breaths/min 724 59902 0 80.00 mm[Hg] - Sitting 136.00 mm[Hg] - Sitting 97.20 Tympanic 78.00 /min 18.00 breaths/min 724 62789 5 80.00 mm[Hg] - Sitting 136.00 mm[Hg] - Sitting 97.20 Tympanic 93.00 % 78.00 /min 18.00 breaths/min 724 13210 7 91.00 mm[Hg] - Lying Down 152.00 mm[Hg] - Lying Down 97.80 Tympanic 98.00 % 67.00 /min 18.00 breaths/min 86865 2 91.00 mm[Hg] - Sitting 152.00 mm[Hg] - Sitting 98.70 Tympanic 67.00 /min 18.00 breaths/min 4 00403 7 75.00 mm[Hg] - Sitting 145.00 mm[Hg] - Sitting 98.80 Tympanic 70.00 /min 18.00 breaths/min 724 48701 0 72.00 mm[Hg] - Lying Down 128.00 mm[Hg] - Lying Down 97.00 Tympanic 93.00 % 71.00 /min 18.00 breaths/min 66870 0 72.00 mm[Hg] - Sitting 128.00 mm[Hg] - Sitting 97.00 Tympanic 70.00 /min 18.00 breaths/min 5 39802 1 63.00 mm[Hg] - Lying Down 120.00 mm[Hg] - Lying Down 98.60 Forehead Scan 94.00 % 80.00 /min 18.00 breaths/min 5 87300 3 79.00 mm[Hg] - Lying Down 135.00 mm[Hg] - Lying Down 97.60 Tympanic 94.00 % 65.00 /min 18.00 breaths/min 726 19350 9 63.00 mm[Hg] - Lying Down 113.00 mm[Hg] - Lying Down 98.40 Forehead Scan 94.00 % 64.00 /min 18.00 breaths/min 726 86193 1 72.00 mm[Hg] - Lying Down 135.00 mm[Hg] - Lying Down 97.80 Tympanic 92.00 % 70.00 /min 18.00 breaths/min 727 11046 5 74.00 mm[Hg] - Sitting 133.00 mm[Hg] - Sitting 96.50 Tympanic 96.00 % 64.00 /min 18.00 breaths/min Immunizations Vaccine Date Status Influenza 05/07/2014 Completed Influenza 05/13/2015 Completed Influenza 05/06/2016 Completed Influenza 04/20/2017 Completed Influenza 04/27/2018 Completed (PCV13)Pneumococcal 07/25/2017 Completed (PPSV23)Pneumococcal 03/20/2009 Completed INSURANCE PROVIDERS Policy Number Group Number Description Effective Date End Date [id number] [employer] 07/10/2015 12/08/2019 [id number] [facility] 10/22/2013 07/09/2015
--- OUTSIDE RECORDS SUMMARY | 2023-03-09 21:14 | External Medical Summary | Continuity Of Care Document ---
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/2020 00 Active VITAL SIGNS Date Time Diastolic blood pressure Systolic blood pressure Body height Body weight Temperature SpO2 Blood Sugar Pulse Respirations 29914 1 90.00 mm[Hg] - Sitting 154.00 mm[Hg] - Sitting 96.90 Tympanic 96.00 % 74.00 /min 18.00 breaths/min 28280 4 73 NI 230.00 NI 57952 4 90.00 mm[Hg] - Sitting 154.00 mm[Hg] - Sitting 230.00 NI 96.90 Tympanic 74.00 /min 18.00 breaths/min 57291 4 75.00 mm[Hg] - Sitting 150.00 mm[Hg] - Sitting 98.90 Tympanic 77.00 /min 19.00 breaths/min 2 61418 2 89.00 mm[Hg] - Sitting 157.00 mm[Hg] - Sitting 99.50 Tympanic 76.00 /min 18.00 breaths/min 3 39959 6 89.00 mm[Hg] - Sitting 157.00 mm[Hg] - Sitting 99.50 Forehead Scan 93.00 % 76.00 /min 18.00 breaths/min 57011 8 89.00 mm[Hg] - Lying Down 150.00 mm[Hg] - Lying Down 97.70 Forehead Scan 93.00 % 73.00 /min 18.00 breaths/min 3 39876 5 89.00 mm[Hg] - Sitting 150.00 mm[Hg] - Sitting 97.70 Tympanic 38460 8 73.00 /min 18.00 breaths/min 88045 5 80.00 mm[Hg] - Sitting 155.00 mm[Hg] - Sitting 98.10 Tympanic 78.00 /min 19.00 breaths/min 51599 0 80.00 mm[Hg] - Sitting 136.00 mm[Hg] - Sitting 97.20 Tympanic 78.00 /min 18.00 breaths/min 60805 5 80.00 mm[Hg] - Sitting 136.00 mm[Hg] - Sitting 97.20 Tympanic 93.00 % 78.00 /min 18.00 breaths/min 4 07726 7 91.00 mm[Hg] - Lying Down 152.00 mm[Hg] - Lying Down 97.80 Tympanic 98.00 % 67.00 /min 18.00 breaths/min 4 92964 2 91.00 mm[Hg] - Sitting 152.00 mm[Hg] - Sitting 98.70 Tympanic 67.00 /min 18.00 breaths/min 4 78649 7 75.00 mm[Hg] - Sitting 145.00 mm[Hg] - Sitting 98.80 Tympanic 70.00 /min 18.00 breaths/min 724 97925 0 72.00 mm[Hg] - Lying Down 128.00 mm[Hg] - Lying Down 97.00 Tympanic 93.00 % 71.00 /min 18.00 breaths/min 5 59593 0 72.00 mm[Hg] - Sitting 128.00 mm[Hg] - Sitting 97.00 Tympanic 70.00 /min 18.00 breaths/min 5 53961 1 63.00 mm[Hg] - Lying Down 120.00 mm[Hg] - Lying Down 98.60 Forehead Scan 94.00 % 80.00 /min 18.00 breaths/min 725 18414 3 79.00 mm[Hg] - Lying Down 135.00 mm[Hg] - Lying Down 97.60 Tympanic 94.00 % 65.00 /min 18.00 breaths/min 726 77729 9 63.00 mm[Hg] - Lying Down 113.00 mm[Hg] - Lying Down 98.40 Forehead Scan 94.00 % 64.00 /min 18.00 breaths/min 726 08558 1 72.00 mm[Hg] - Lying Down 135.00 mm[Hg] - Lying Down 97.80 Tympanic 92.00 % 70.00 /min 18.00 breaths/min 7 06957 5 74.00 mm[Hg] - Sitting 133.00 mm[Hg] - Sitting 96.50 Tympanic 96.00 % 64.00 /min 18.00 breaths/min 7 37173 4 230.00 NI 8 64903 1 77.00 mm[Hg] - Lying Down 131.00 mm[Hg] - Lying Down 98.10 Tympanic 92.00 % 65.00 /min 18.00 breaths/min 728 70351 2 68.00 mm[Hg] - Lying Down 126.00 mm[Hg] - Lying Down 97.30 Tympanic 94.00 % 64.00 /min 18.00 breaths/min 729 80654 8 76.00 mm[Hg] - Lying Down 120.00 mm[Hg] - Lying Down 98.70 Tympanic 92.00 % 72.00 /min 16.00 breaths/min 729 17484 9 79.00 mm[Hg] - Sitting 128.00 mm[Hg] - Sitting 97.70 Tympanic 97.00 % 72.00 /min 18.00 breaths/min 730 17983 7 97.00 mm[Hg] - Sitting 154.00 mm[Hg] - Sitting 99.30 Tympanic 96.00 % 66.00 /min 18.00 breaths/min 730 10402 4 76.00 mm[Hg] - Lying Down 133.00 mm[Hg] - Lying Down 97.00 Tympanic 93.00 % 58.00 /min 18.00 breaths/min 731 82973 5 72.00 mm[Hg] - Sitting 121.00 mm[Hg] - Sitting 97.80 Tympanic 95.00 % 69.00 /min 18.00 breaths/min 731 04840 1 71.00 mm[Hg] - Sitting 120.00 mm[Hg] - Sitting 98.60 Tympanic 96.00 % 72.00 /min 18.00 breaths/min 801 27693 5 62.00 mm[Hg] - Lying Down 99.00 mm[Hg] - Lying Down 97.70 Tympanic 93.00 % 58.00 /min 18.00 breaths/min 801 20576 7 65.00 mm[Hg] - Sitting 132.00 mm[Hg] - Sitting 98.90 Tympanic 95.00 % 68.00 /min 18.00 breaths/min 801 45154 4 230.00 NI 801 75124 0 65.00 mm[Hg] - Sitting 132.00 mm[Hg] - Sitting 98.90 Tympanic 68.00 /min 18.00 breaths/min 802 70813 0 83.00 mm[Hg] - Lying Down 147.00 mm[Hg] - Lying Down 97.20 Tympanic 96.00 % 58.00 /min 18.00 breaths/min 92747 802 47356 3 68.00 mm[Hg] - Sitting 122.00 mm[Hg] - Sitting 99.10 Tympanic 94.00 % 64.00 /min 18.00 breaths/min 803 10487 7 50.00 mm[Hg] - Lying Down 92.00 mm[Hg] - Lying Down 97.90 Tympanic 92.00 % 58.00 /min 18.00 breaths/min 803 23031 4 81.00 mm[Hg] - Lying Down 142.00 mm[Hg] - Lying Down 97.00 Tympanic 93.00 % 56.00 /min 18.00 breaths/min 803 51319 8 230.00 NI 803 69484 1 79.00 mm[Hg] - Sitting 145.00 mm[Hg] - Sitting 98.90 Forehead Scan 95.00 % 62.00 /min 18.00 breaths/min 804 75711 7 71.00 mm[Hg] - Sitting 127.00 mm[Hg] - Sitting 98.70 Tympanic 94.00 % 62.00 /min 18.00 breaths/min Immunizations Vaccine Date Status Influenza 05/07/2014 Completed Influenza 05/13/2015 Completed Influenza 05/06/2016 Completed Influenza 04/20/2017 Completed Influenza 04/27/2018 Completed (PCV13)Pneumococcal 07/25/2017 Completed (PPSV23)Pneumococcal 03/20/2009 Completed INSURANCE PROVIDERS Policy Number Group Number Description Effective Date End Date [id number] [employer] 07/10/2015 12/08/2019 [id number] [employer] 10/22/2013 07/09/2015
--- OUTSIDE RECORDS SUMMARY | 2023-03-09 21:14 | External Medical Summary | Continuity Of Care Document ---
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,bladder,uns 04/08/2019 Active S82.201D Uns fx,shft rt tibia,SE,clsd,routn 06/12/2019 0 Active R53.1 Weakness 08/01/2019 12/20/2019 Completed M62.81 Muscle weakness (generalized) 12/20/2019 00/00/ 0000 Active VITAL SIGNS Date Time Diastolic blood pressure Systolic blood pressure Body height Body weight Temperature SpO2 Blood Sugar Pulse Respirations 601 53526 8 59.00 mm[Hg] - Sitting 130.00 mm[Hg] - Sitting 98.00 Tympanic 94.00 % 58.00 /min 18.00 breaths/min 601 66911 6 59.00 mm[Hg] - Sitting 130.00 mm[Hg] - Sitting 98.00 Tympanic 58.00 /min 18.00 breaths/min 601 48541 3 244.00 NI Immunizations Vaccine Date Status Influenza 05/07/2014 Completed Influenza 05/13/2015 Completed Influenza 05/06/2016 Completed Influenza 04/20/2017 Completed Influenza 04/27/2018 Completed (PCV13)Pneumococcal 07/25/2017 Completed (PPSV23)Pneumococcal 03/20/2009 Completed INSURANCE PROVIDERS Policy Number Group Number Description Effective Date End Date [id number] [employer] 07/10/2015 12/08/2019 [id number] [employer] 10/22/2013 07/09/2015
--- OUTSIDE RECORDS SUMMARY | 2023-03-09 21:14 | External Medical Summary | Continuity Of Care Document ---
Author Name Unknown Address [address] [address] Organization [facility] () Care Team Providers Care Press Hand Supervisor Name Role Phone Pal Child Primary Care Provider [phone] Problems Code Description Start Date End Date [...] adjustment of urinary device 01/29/2020 Active Z79.01 alf (current) use of anticoagulants 01/28 Active B34.2 Coronavirus infection, unspecified 03/04/2020 0 03/08/2020 Completed Z86.19 Personal history of other infectious and parasitic diseases 03/09/2020 Active VITAL SIGNS Date Time Diastolic blood pressure Systolic blood pressure Body height Body weight Temperature SpO2 Blood Sugar Pulse Respirations 005 39911 5 235.60 NI 101 62846 9 68.00 mm[Hg] - Sitting 155.00 mm[Hg] - Sitting 233.80 NI 97.50 Tympanic 62.00/ min 18.00/min Immunizations Vaccine Date Status Influenza 05/07/2014 Completed Influenza 05/13/2015 Completed Influenza 05/06/2016 Completed Influenza 04/20/2017 Completed Influenza 04/27/2018 Completed Influenza 04/09/2020 Completed (PCV13)Pneumococcal 07/25/2017 Completed (PPSV23)Pneumococcal 03/20/2009 Completed
--- OUTSIDE RECORDS SUMMARY | 2023-03-09 21:14 | External Medical Summary | Continuity Of Care Document ---
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,bladder,uns 04/08/2019 Active S82.201D Uns fx,shft rt tibia,SE,clsd,routn 06/12/2019 0 Active R53.1 Weakness 08/01/2019 12/20/2019 Completed M62.81 Muscle weakness (generalized) 12/20/2019 00/00/ 0000 Active VITAL SIGNS Date Time Diastolic blood pressure Systolic blood pressure Body height Body weight Temperature SpO2 Blood Sugar Pulse Respirations 601 09035 8 59.00 mm[Hg] - Sitting 130.00 mm[Hg] - Sitting 98.00 Tympanic 94.00 % 58.00 /min 18.00 breaths/min 601 51068 6 59.00 mm[Hg] - Sitting 130.00 mm[Hg] - Sitting 98.00 Tympanic 58.00 /min 18.00 breaths/min 601 96841 3 244.00 NI Immunizations Vaccine Date Status Influenza 05/07/2014 Completed Influenza 05/13/2015 Completed Influenza 05/06/2016 Completed Influenza 04/20/2017 Completed Influenza 04/27/2018 Completed (PCV13)Pneumococcal 07/25/2017 Completed (PPSV23)Pneumococcal 03/20/2009 Completed INSURANCE PROVIDERS Policy Number Group Number Description Effective Date End Date [id number] [employer] Cross 07/10/2015 12/08/2019 [id number] [employer] 10/22/2013 07/09/2015
--- OUTSIDE RECORDS SUMMARY | 2023-03-09 21:14 | External Medical Summary | Continuity Of Care Document ---
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/29/2020 00 Active B34.2 Coronavirus infection, unspecified 03/04/2020 0 Active VITAL SIGNS Date Time Diastolic blood pressure Systolic blood pressure Body height Body weight Temperature SpO2 Blood Sugar Pulse Respirations 7 56320 5 74.00 mm[Hg] - Sitting 133.00 mm[Hg] - Sitting 96.50 Tympanic 96.00 % 64.00 /min 18.00 breaths/min 7 02249 4 230.00 NI 8 57745 1 77.00 mm[Hg] - Lying Down 131.00 mm[Hg] - Lying Down 98.10 Tympanic 92.00 % 65.00 /min 18.00 breaths/min 69226 2 68.00 mm[Hg] - Lying Down 126.00 mm[Hg] - Lying Down 97.30 Tympanic 94.00 % 64.00 /min 18.00 breaths/min 9 86938 8 76.00 mm[Hg] - Lying Down 120.00 mm[Hg] - Lying Down 98.70 Tympanic 92.00 % 72.00 /min 16.00 breaths/min 729 84192 9 79.00 mm[Hg] - Sitting 128.00 mm[Hg] - Sitting 97.70 Tympanic 97.00 % 72.00 /min 18.00 breaths/min 730 56894 7 97.00 mm[Hg] - Sitting 154.00 mm[Hg] - Sitting 99.30 Tympanic 96.00 % 66.00 /min 18.00 breaths/min 730 60573 4 76.00 mm[Hg] - Lying Down 133.00 mm[Hg] - Lying Down 97.00 Tympanic 93.00 % 58.00 /min 18.00 breaths/min 731 14840 5 72.00 mm[Hg] - Sitting 121.00 mm[Hg] - Sitting 97.80 Tympanic 95.00 % 69.00 /min 18.00 breaths/min 731 67331 1 71.00 mm[Hg] - Sitting 120.00 mm[Hg] - Sitting 98.60 Tympanic 96.00 % 72.00 /min 18.00 breaths/min 801 50567 5 62.00 mm[Hg] - Lying Down 99.00 mm[Hg] - Lying Down 97.70 Tympanic 93.00 % 58.00 /min 18.00 breaths/min 801 73608 7 65.00 mm[Hg] - Sitting 132.00 mm[Hg] - Sitting 98.90 Tympanic 95.00 % 68.00 /min 18.00 breaths/min 801 57341 4 230.00 NI 801 72376 0 65.00 mm[Hg] - Sitting 132.00 mm[Hg] - Sitting 98.90 Tympanic 68.00 /min 18.00 breaths/min 802 16242 0 83.00 mm[Hg] - Lying Down 147.00 mm[Hg] - Lying Down 97.20 Tympanic 96.00 % 58.00 /min 18.00 breaths/min 802 84124 3 68.00 mm[Hg] - Sitting 122.00 mm[Hg] - Sitting 99.10 Tympanic 94.00 % 64.00 /min 18.00 breaths/min 803 88160 7 50.00 mm[Hg] - Lying Down 92.00 mm[Hg] - Lying Down 97.90 Tympanic 92.00 % 58.00 /min 18.00 breaths/min 803 53918 4 81.00 mm[Hg] - Lying Down 142.00 mm[Hg] - Lying Down 97.00 Tympanic 93.00 % 56.00 /min 18.00 breaths/min 803 77379 8 230.00 NI 803 02846 1 79.00 mm[Hg] - Sitting 145.00 mm[Hg] - Sitting 98.90 Forehead Scan 95.00 % 62.00 /min 18.00 breaths/min 804 75975 7 71.00 mm[Hg] - Sitting 127.00 mm[Hg] - Sitting 98.70 Tympanic 94.00 % 62.00 /min 18.00 breaths/min 804 49096 2 84.00 mm[Hg] - Lying Down 123.00 mm[Hg] - Lying Down 98.00 Tympanic 95.00 % 62.00 /min 18.00 breaths/min 805 80680 3 18.00 breaths/min 805 40077 8 66.00 mm[Hg] - Sitting 127.00 mm[Hg] - Sitting 99.10 Forehead Scan 94.00 % 71.00 /min 806 14804 2 76.00 mm[Hg] - Sitting 135.00 mm[Hg] - Sitting 97.70 Tympanic 92.00 % 59.00 /min 16.00 breaths/min 806 99892 2 67.00 mm[Hg] - Sitting 134.00 mm[Hg] - Sitting 97.10 Forehead Scan 95.00 % 73.00 /min 18.00 breaths/min 807 68386 2 76.00 mm[Hg] - Sitting 161.00 mm[Hg] - Sitting 98.90 Tympanic 95.00 % 64.00 /min 18.00 breaths/min 807 20463 5 81.00 mm[Hg] - Sitting 135.00 mm[Hg] - Sitting 99.10 Forehead Scan 95.00 % 65.00 /min 18.00 breaths/min 808 33405 7 78.00 mm[Hg] - Sitting 152.00 mm[Hg] - Sitting 98.00 Tympanic 96.00 % 72.00 /min 18.00 breaths/min 808 36331 9 70.00 mm[Hg] - Sitting 123.00 mm[Hg] - Sitting 98.90 Forehead Scan 95.00 % 64.00 /min 18.00 breaths/min 809 92934 8 77.00 mm[Hg] - Sitting 145.00 mm[Hg] - Sitting 98.10 Tympanic 95.00 % 67.00 /min 18.00 breaths/min 809 99127 0 75.00 mm[Hg] - Sitting 135.00 mm[Hg] - Sitting 98.40 Tympanic 95.00 % 71.00 /min 18.00 breaths/min 809 36065 4 78.00 mm[Hg] - Sitting 143.00 mm[Hg] - Sitting 99.10 Forehead Scan 97.00 % 60.00 /min 18.00 breaths/min 810 92868 0 73.00 mm[Hg] - Sitting 156.00 mm[Hg] - Sitting 98.00 Forehead Scan 99.00 % 67.00 /min 18.00 breaths/min 810 07823 4 62.00 mm[Hg] - Sitting 118.00 mm[Hg] - Sitting 99.50 Forehead Scan 94.00 % 66.00 /min 18.00 breaths/min 810 16749 7 234.60 NI 811 95013 0 75.00 mm[Hg] - Sitting 130.00 mm[Hg] - Sitting 98.30 Tympanic 93.00 % 74.00 /min 16.00 breaths/min 811 44372 1 71.00 mm[Hg] - Sitting 133.00 mm[Hg] - Sitting 98.30 Forehead Scan 94.00 % 78.00 /min 18.00 breaths/min 811 01708 9 82.00 mm[Hg] - Sitting 151.00 mm[Hg] - Sitting 99.10 Tympanic 93.00 % 66.00 /min 16.00 breaths/min 812 61744 9 75.00 mm[Hg] - Sitting 133.00 mm[Hg] - Sitting 98.90 Forehead Scan 97.00 % 65.00 /min 18.00 breaths/min 813 47049 3 82.00 mm[Hg] - Sitting 149.00 mm[Hg] - Sitting 98.00 Tympanic 95.00 % 70.00 /min 18.00 breaths/min 813 25240 0 69.00 mm[Hg] - Sitting 133.00 mm[Hg] - Sitting 98.90 Forehead Scan 96.00 % 67.00 /min 18.00 breaths/min 813 26122 0 75.00 mm[Hg] - Sitting 134.00 mm[Hg] - Sitting 97.80 Tympanic 95.00 % 65.00 /min 18.00 breaths/min 814 90752 5 71.00 mm[Hg] - Sitting 128.00 mm[Hg] - Sitting 98.90 Forehead Scan 94.00 % 67.00 /min 18.00 breaths/min 815 62332 3 66.00 mm[Hg] - Sitting 132.00 mm[Hg] - Sitting 99.10 Tympanic 93.00 % 67.00 /min 18.00 breaths/min 815 60967 6 75.00 mm[Hg] - Sitting 148.00 mm[Hg] - Sitting 98.90 Tympanic 97.00 % 68.00 /min 18.00 breaths/min 816 15675 8 76.00 mm[Hg] - Sitting 130.00 mm[Hg] - Sitting 97.80 Tympanic 96.00 % 62.00 /min 16.00 breaths/min 816 27114 0 75.00 mm[Hg] - Sitting 136.00 mm[Hg] - Sitting 98.50 Tympanic 95.00 % 71.00 /min 19.00 breaths/min 816 04632 2 74.00 mm[Hg] - Sitting 142.00 mm[Hg] - Sitting 97.00 Oral 97.00 % 84.00 /min 18.00 breaths/min 817 84038 5 72.00 mm[Hg] - Sitting 120.00 mm[Hg] - Sitting 98.90 Tympanic 96.00 % 71.00 /min 18.00 breaths/min 817 68319 2 8 51968 1 71.00 mm[Hg] - Sitting 131.00 mm[Hg] - Sitting 98.30 Tympanic 95.00 % 66.00 /min 18.00 breaths/min 818 70132 3 64.00 mm[Hg] - Sitting 142.00 mm[Hg] - Sitting 98.60 Tympanic 98.00 % 62.00 /min 18.00 breaths/min 818 72759 7 74.00 mm[Hg] - Sitting 130.00 mm[Hg] - Sitting 98.10 Forehead Scan 93.00 % 75.00 /min 18.00 breaths/min 819 63941 1 76.00 mm[Hg] - Sitting 132.00 mm[Hg] - Sitting 99.50 Forehead Scan 94.00 % 62.00 /min 18.00 breaths/min 819 53668 3 73.00 mm[Hg] - Sitting 138.00 mm[Hg] - Sitting 97.50 Tympanic 97.00 % 67.00 /min 18.00 breaths/min 826 29615 6 70.00 mm[Hg] - Sitting 118.00 mm[Hg] - Sitting 97.90 Tympanic 93.00 % 64.00 /min 18.00 breaths/min Immunizations Vaccine Date Status Influenza 05/07/2014 Completed Influenza 05/13/2015 Completed Influenza 05/06/2016 Completed Influenza 04/20/2017 Completed Influenza 04/27/2018 Completed (PCV13)Pneumococcal 07/25/2017 Completed (PPSV23)Pneumococcal 03/20/2009 Completed INSURANCE PROVIDERS Policy Number Group Number Description Effective Date End Date [id number] Blue [employer] 07/10/2015 12/08/2019 [id number] [employer] 10/22/2013 07/09/2015
--- OUTSIDE RECORDS SUMMARY | 2023-03-09 21:14 | External Medical Summary | Continuity Of Care Document ---
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,bladder,uns 04/08/2019 Active S82.201D Uns fx,shft rt tibia,SE,clsd,routn 06/12/2019 0 Active R53.1 Weakness 08/01/2019 12/20/2019 Completed M62.81 Muscle weakness (generalized) 12/20/2019 00/00/ 0000 Active VITAL SIGNS Date Time Diastolic blood pressure Systolic blood pressure Body height Body weight Temperature SpO2 Blood Sugar Pulse Respirations 601 81939 8 59.00 mm[Hg] - Sitting 130.00 mm[Hg] - Sitting 98.00 Tympanic 94.00 % 58.00 /min 18.00 breaths/min 601 50625 6 59.00 mm[Hg] - Sitting 130.00 mm[Hg] - Sitting 98.00 Tympanic 58.00 /min 18.00 breaths/min 601 82941 3 244.00 NI Immunizations Vaccine Date Status Influenza 05/07/2014 Completed Influenza 05/13/2015 Completed Influenza 05/06/2016 Completed Influenza 04/20/2017 Completed Influenza 04/27/2018 Completed (PCV13)Pneumococcal 07/25/2017 Completed (PPSV23)Pneumococcal 03/20/2009 Completed INSURANCE PROVIDERS Policy Number Group Number Description Effective Date End Date [id number] [employer] 07/10/2015 12/08/2019 [id number] [employer] 10/22/2013 07/09/2015
--- OUTSIDE RECORDS SUMMARY | 2023-03-09 21:14 | External Medical Summary | Continuity Of Care Document ---
Author Name Unknown Address [address] [address] Organization [facility] () Care Team Providers Care Project Intern Name Role Phone Pal Child Primary Care Provider [phone] Problems Code Description Start Date End Date [...] Encntr fittin&adjust urinary device 01/29/2020 Active Z79.01 [facility] use of anticoagulants 01/29/2020 00/0 Active B34.2 Coronavirus infection, unspecified 03/04/2020 0 Active VITAL SIGNS Date Time Diastolic blood pressure Systolic blood pressure Body height Body weight Temperature SpO2 Blood Sugar Pulse Respirations 801 02315 5 62.00 mm[Hg] - Lying Down 99.00 mm[Hg] - Lying Down 97.70 Tympanic 93.00 % 58.00 /min 18.00 breaths/min 801 23709 7 65.00 mm[Hg] - Sitting 132.00 mm[Hg] - Sitting 98.90 Tympanic 95.00 % 68.00 /min 18.00 breaths/min 801 01373 4 230.00 NI 801 27799 0 65.00 mm[Hg] - Sitting 132.00 mm[Hg] - Sitting 98.90 Tympanic 68.00 /min 18.00 breaths/min 802 91478 0 83.00 mm[Hg] - Lying Down 147.00 mm[Hg] - Lying Down 97.20 Tympanic 96.00 % 58.00 /min 18.00 breaths/min 802 40980 3 68.00 mm[Hg] - Sitting 122.00 mm[Hg] - Sitting 99.10 Tympanic 94.00 % 64.00 /min 18.00 breaths/min 803 19946 7 50.00 mm[Hg] - Lying Down 92.00 mm[Hg] - Lying Down 97.90 Tympanic 92.00 % 58.00 /min 18.00 breaths/min 803 14346 4 81.00 mm[Hg] - Lying Down 142.00 mm[Hg] - Lying Down 97.00 Tympanic 93.00 % 56.00 /min 18.00 breaths/min 803 62227 8 230.00 NI 803 74242 1 79.00 mm[Hg] - Sitting 145.00 mm[Hg] - Sitting 98.90 Forehead Scan 95.00 % 62.00 /min 18.00 breaths/min 804 53722 7 71.00 mm[Hg] - Sitting 127.00 mm[Hg] - Sitting 98.70 Tympanic 94.00 % 62.00 /min 18.00 breaths/min 804 26920 2 84.00 mm[Hg] - Lying Down 123.00 mm[Hg] - Lying Down 98.00 Tympanic 95.00 % 62.00 /min 18.00 breaths/min 805 98042 3 18.00 breaths/min 805 63419 8 66.00 mm[Hg] - Sitting 127.00 mm[Hg] - Sitting 99.10 Forehead Scan 94.00 % 71.00 /min 806 28183 2 76.00 mm[Hg] - Sitting 135.00 mm[Hg] - Sitting 97.70 Tympanic 92.00 % 59.00 /min 16.00 breaths/min 806 22245 2 67.00 mm[Hg] - Sitting 134.00 mm[Hg] - Sitting 97.10 Forehead Scan 95.00 % 73.00 /min 18.00 breaths/min 807 73457 2 76.00 mm[Hg] - Sitting 161.00 mm[Hg] - Sitting 98.90 Tympanic 95.00 % 64.00 /min 18.00 breaths/min 807 74635 5 81.00 mm[Hg] - Sitting 135.00 mm[Hg] - Sitting 99.10 Forehead Scan 95.00 % 65.00 /min 18.00 breaths/min 808 65862 7 78.00 mm[Hg] - Sitting 152.00 mm[Hg] - Sitting 98.00 Tympanic 96.00 % 72.00 /min 18.00 breaths/min 808 09685 9 70.00 mm[Hg] - Sitting 123.00 mm[Hg] - Sitting 98.90 Forehead Scan 95.00 % 64.00 /min 18.00 breaths/min 809 89645 8 77.00 mm[Hg] - Sitting 145.00 mm[Hg] - Sitting 98.10 Tympanic 95.00 % 67.00 /min 18.00 breaths/min 809 85251 0 75.00 mm[Hg] - Sitting 135.00 mm[Hg] - Sitting 98.40 Tympanic 95.00 % 71.00 /min 18.00 breaths/min 809 32668 4 78.00 mm[Hg] - Sitting 143.00 mm[Hg] - Sitting 99.10 Forehead Scan 97.00 % 60.00 /min 18.00 breaths/min 810 54204 0 73.00 mm[Hg] - Sitting 156.00 mm[Hg] - Sitting 98.00 Forehead Scan 99.00 % 67.00 /min 18.00 breaths/min 810 05990 4 62.00 mm[Hg] - Sitting 118.00 mm[Hg] - Sitting 99.50 Forehead Scan 94.00 % 66.00 /min 18.00 breaths/min 810 83847 7 234.60 NI 811 94095 0 75.00 mm[Hg] - Sitting 130.00 mm[Hg] - Sitting 98.30 Tympanic 93.00 % 74.00 /min 16.00 breaths/min 811 85194 1 71.00 mm[Hg] - Sitting 133.00 mm[Hg] - Sitting 98.30 Forehead Scan 94.00 % 78.00 /min 18.00 breaths/min 811 30064 9 82.00 mm[Hg] - Sitting 151.00 mm[Hg] - Sitting 99.10 Tympanic 93.00 % 66.00 /min 16.00 breaths/min 812 48051 9 75.00 mm[Hg] - Sitting 133.00 mm[Hg] - Sitting 98.90 Forehead Scan 97.00 % 65.00 /min 18.00 breaths/min 813 16505 3 82.00 mm[Hg] - Sitting 149.00 mm[Hg] - Sitting 98.00 Tympanic 95.00 % 70.00 /min 18.00 breaths/min 813 49648 0 69.00 mm[Hg] - Sitting 133.00 mm[Hg] - Sitting 98.90 Forehead Scan 96.00 % 67.00 /min 18.00 breaths/min 813 41725 0 75.00 mm[Hg] - Sitting 134.00 mm[Hg] - Sitting 97.80 Tympanic 95.00 % 65.00 /min 18.00 breaths/min 814 88129 5 71.00 mm[Hg] - Sitting 128.00 mm[Hg] - Sitting 98.90 Forehead Scan 94.00 % 67.00 /min 18.00 breaths/min 815 43939 3 66.00 mm[Hg] - Sitting 132.00 mm[Hg] - Sitting 99.10 Tympanic 93.00 % 67.00 /min 18.00 breaths/min 815 66134 6 75.00 mm[Hg] - Sitting 148.00 mm[Hg] - Sitting 98.90 Tympanic 97.00 % 68.00 /min 18.00 breaths/min 816 92796 8 76.00 mm[Hg] - Sitting 130.00 mm[Hg] - Sitting 97.80 Tympanic 96.00 % 62.00 /min 16.00 breaths/min 816 78309 0 75.00 mm[Hg] - Sitting 136.00 mm[Hg] - Sitting 98.50 Tympanic 95.00 % 71.00 /min 19.00 breaths/min 816 50683 2 74.00 mm[Hg] - Sitting 142.00 mm[Hg] - Sitting 97.00 Oral 97.00 % 84.00 /min 18.00 breaths/min 817 32710 5 72.00 mm[Hg] - Sitting 120.00 mm[Hg] - Sitting 98.90 Tympanic 96.00 % 71.00 /min 18.00 breaths/min 817 84351 2 8 81192 1 71.00 mm[Hg] - Sitting 131.00 mm[Hg] - Sitting 98.30 Tympanic 95.00 % 66.00 /min 18.00 breaths/min 818 25445 3 64.00 mm[Hg] - Sitting 142.00 mm[Hg] - Sitting 98.60 Tympanic 98.00 % 62.00 /min 18.00 breaths/min 818 36357 7 74.00 mm[Hg] - Sitting 130.00 mm[Hg] - Sitting 98.10 Forehead Scan 93.00 % 75.00 /min 18.00 breaths/min 819 61237 1 76.00 mm[Hg] - Sitting 132.00 mm[Hg] - Sitting 99.50 Forehead Scan 94.00 % 62.00 /min 18.00 breaths/min 819 50752 3 73.00 mm[Hg] - Sitting 138.00 mm[Hg] - Sitting 97.50 Tympanic 97.00 % 67.00 /min 18.00 breaths/min 826 22485 6 70.00 mm[Hg] - Sitting 118.00 mm[Hg] - Sitting 97.90 Tympanic 93.00 % 64.00 /min 18.00 breaths/min Immunizations Vaccine Date Status Influenza 05/07/2014 Completed Influenza 05/13/2015 Completed Influenza 05/06/2016 Completed Influenza 04/20/2017 Completed Influenza 04/27/2018 Completed (PCV13)Pneumococcal 07/25/2017 Completed (PPSV23)Pneumococcal 03/20/2009 Completed INSURANCE PROVIDERS Policy Number Group Number Description Effective Date End Date [id number] [employer] 07/10/2015 12/08/2019 [id number] [employer] 10/22/2013 07/09/2015
--- OUTSIDE RECORDS SUMMARY | 2023-03-09 21:15 | External Medical Summary | Continuity Of Care Document ---
Author Name Unknown Address [address] [address] Organization 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 04/08/2019 00/0 Active 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,bladder,uns 04/08/2019 Active S82.201D Uns fx,shft rt tibia,SE,clsd,routn 06/12/2019 0 Active R53.1 Weakness 08/01/2019 Active VITAL SIGNS Date Time Diastolic blood pressure Systolic blood pressure Body height Body weight Temperature SpO2 Blood Sugar Pulse Respirations 101 46489 0 72.00 mm[Hg] - Sitting 138.00 mm[Hg] - Sitting 241.60 NI 98.10 Tympanic 60.00 /min 18.00 breaths/min 95272 128 71514 5 63.00 mm[Hg] - Sitting 104.00 mm[Hg] - Sitting 97.50 Tympanic 92.00 % 59.00 /min 16.00 breaths/min Immunizations Vaccine Date Status Influenza 05/07/2014 Completed Influenza 05/13/2015 Completed Influenza 05/06/2016 Completed Influenza 04/20/2017 Completed Influenza 04/27/2018 Completed (PCV13)Pneumococcal 07/25/2017 Completed (PPSV23)Pneumococcal 03/20/2009 Completed INSURANCE PROVIDERS Policy Number Group Number Description Effective Date End Date [id number] [employer] 07/10/2015 02/26/2019 [id number] [employer] 10/22/2013 07/09/2015
--- OUTSIDE RECORDS SUMMARY | 2023-03-09 21:15 | External Medical Summary | Continuity Of Care Document ---
Author Name Unknown Address [address] [facility] () Problems Code Description Start Date End Date Status A41.9 Sepsis, unspecified organism 02/14/20190 000 Active G82.52 Quadriplegia, C1-C4 incomplete 02/14/2019 Active R53.1 Weakness 02/14/2019 Active Z87.440 Personal history of urinary (tract) infections 02/14/2019 Active I11.9 Hypertensive heart disease without heart failur e 02/14/2019 Active E78.5 Hyperlipidemia, unspecified 02/14/2019 00 Active F32.9 Major depressive dis order, single episode, unspecified 02/14/2019 Active F41.9 Anxiety disorder, unspecified 02/14/2019 Active K21.9 Gastro-esophageal re flux disease without esophagitis 02/14/2019 Active G47.00 Insomnia, unspecified 02/14/2019 Act jon Z86.718 Personal history of other venous thrombosis and embolism 02/14/2019 Active Z46.6 Encounter for fittin g and adjustment of urinary device 02/14/2019 Active Z79.01 retirement (current) use of anticoagulants 02/14 Active N31.9 Neuromuscular dysfun ction of bladder, unspecified 02/14/2019 Active VITAL SIGNS Date Time Diastolic blood pressure Systolic blood pressure Body height Body weight Temperature SpO2 Blood Sugar Pulse Respirations 901 19265 8 83.00 mm[Hg] - Sitting 134.00 mm[Hg] - Sitting 240.00 NI 98.10 Tympanic 65.00 /min 19.00 breaths/min 901 29036 0 83.00 mm[Hg] - Sitting 134.00 mm[Hg] - Sitting 98.10 Tympanic 65.00 /min 18.00 breaths/min 902 62513 5 240.00 NI 907 37999 4 73.00 mm[Hg] - Sitting 137.00 mm[Hg] - Sitting 98.70 Tympanic 94.00 % 68.00 /min 18.00 breaths/min 923 03770 0 70.00 mm[Hg] - Sitting 107.00 mm[Hg] - Sitting 98.10 Tympanic 90.00 % 85.00 /min 20.00 breaths/min 927 15810 9 82.00 mm[Hg] - Sitting 149.00 mm[Hg] - Sitting 99.10 Tympanic 94.00 % 64.00 /min 18.00 breaths/min 928 90859 6 97.00 mm[Hg] - Sitting 181.00 mm[Hg] - Sitting 99.30 Tympanic 83.00 /min 18.00 breaths/min Immunizations Vaccine Date Status Influenza 05/07/2014 Completed Influenza 05/13/2015 Completed Influenza 05/06/2016 Completed Influenza 04/20/2017 Completed Influenza 04/27/2018 Completed (PCV13)Pneumococcal 07/25/2017 Completed (PPSV23)Pneumococcal 03/20/2009 Completed INSURANCE PROVIDERS Policy Number Group Number Description Effective Date End Date [id number] [employer] 07/10/2015 02/26/2019 [id number] [employer] 10/22/2013 07/09/2015
--- OUTSIDE RECORDS SUMMARY | 2023-03-09 21:15 | External Medical Summary | Continuity Of Care Document ---
Author Name Unknown Address [address] [place] [address] Organization [facility] [place] () Problems Code Description Start Date End [...] adjustment of urinary device 02/14/2019 Active Z79.01 [facility] (current) use of anticoagulants 02/14 Active N31.9 Neuromuscular dysfun ction of bladder, unspecified 02/14/2019 Active VITAL SIGNS Date Time Diastolic blood pressure Systolic blood pressure Body height Body weight Temperature SpO2 Blood Sugar Pulse Respirations 801 58497 5 73.00 mm[Hg] - Sitting 134.00 mm[Hg] - Sitting 96.40 Tympanic 66.00 /min 18.00 breaths/min 801 97718 3 244.00 NI 808 69747 1 88.00 mm[Hg] - Sitting 154.00 mm[Hg] - Sitting 238.80 NI 99.30 Tympanic 96.00 % 88.00 /min 18.00 breaths/min 808 11633 1 73 NI 809 48048 8 81.00 mm[Hg] - Sitting 140.00 mm[Hg] - Sitting 98.60 Tympanic 96.00 % 84.00 /min 18.00 breaths/min 809 46585 2 80.00 mm[Hg] - Sitting 140.00 mm[Hg] - Sitting 98.70 Tympanic 82.00 /min 18.00 breaths/min 809 36842 9 80.00 mm[Hg] - Sitting 140.00 mm[Hg] - Sitting 98.70 Tympanic 82.00 /min 18.00 breaths/min 810 31502 5 76.00 mm[Hg] - Lying Down 134.00 mm[Hg] - Lying Down 98.30 Tympanic 97.00 % 80.00 /min 18.00 breaths/min 810 08279 6 81.00 mm[Hg] - Sitting 146.00 mm[Hg] - Sitting 97.70 Tympanic 59.00 /min 18.00 breaths/min 810 69529 0 90.00 mm[Hg] - Sitting 142.00 mm[Hg] - Sitting 810 97150 1 98.90 Forehead Scan 67.00 /min 18.00 breaths/min 810 75091 3 81.00 mm[Hg] - Sitting 146.00 mm[Hg] - Sitting 98.90 Tympanic 67.00 /min 18.00 breaths/min 810 22058 9 81.00 mm[Hg] - Sitting 146.00 mm[Hg] - Sitting 98.90 Tympanic 67.00 /min 18.00 breaths/min 811 64449 1 78.00 mm[Hg] - Lying Down 142.00 mm[Hg] - Lying Down 98.70 Forehead Scan 97.00 % 64.00 /min 16.00 breaths/min 62199 811 09590 0 77.00 mm[Hg] - Lying Down 138.00 mm[Hg] - Lying Down 99.10 Forehead Scan 93.00 % 64.00 /min 18.00 breaths/min 811 42315 9 70.00 mm[Hg] - Lying Down 117.00 mm[Hg] - Lying Down 97.10 Tympanic 58.00 /min 18.00 breaths/min 811 02077 2 82.00 mm[Hg] - Sitting 142.00 mm[Hg] - Sitting 97.10 Tympanic 93.00 % 62.00 /min 18.00 breaths/min 811 77311 4 82.00 mm[Hg] - Sitting 142.00 mm[Hg] - Sitting 97.10 Tympanic 62.00 /min 18.00 breaths/min 811 43437 8 82.00 mm[Hg] - Sitting 142.00 mm[Hg] - Sitting 97.10 Tympanic 18.00 breaths/min 812 34288 9 76.00 mm[Hg] - Sitting 136.00 mm[Hg] - Sitting 97.60 Tympanic 18.00 breaths/min 812 57935 8 86.00 mm[Hg] - Sitting 148.00 mm[Hg] - Sitting 97.20 Tympanic 99.00 % 76.00 /min 18.00 breaths/min 812 46629 7 237.80 NI 812 33420 9 82.00 mm[Hg] - Sitting 145.00 mm[Hg] - Sitting 97.20 Tympanic 95.00 % 69.00 /min 18.00 breaths/min 813 63816 0 69.00 mm[Hg] - Sitting 129.00 mm[Hg] - Sitting 98.90 Tympanic 96.00 % 64.00 /min 16.00 breaths/min 814 93183 0 78.00 mm[Hg] - Sitting 138.00 mm[Hg] - Sitting 97.30 Tympanic 98.00 % 78.00 /min 17.00 breaths/min 814 38503 8 85.00 mm[Hg] - Sitting 166.00 mm[Hg] - Sitting 98.70 Tympanic 95.00 % 78.00 /min 20.00 breaths/min 814 04425 0 64.00 mm[Hg] - Sitting 118.00 mm[Hg] - Sitting 97.40 Tympanic 97.00 % 77.00 /min 18.00 breaths/min 815 70269 3 62.00 mm[Hg] - Sitting 127.00 mm[Hg] - Sitting 97.90 Forehead Scan 96.00 % 66.00 /min 16.00 breaths/min 816 41572 3 76.00 mm[Hg] - Sitting 138.00 mm[Hg] - Sitting 97.10 Tympanic 98.00 % 75.00 /min 18.00 breaths/min 816 04393 5 74.00 mm[Hg] - Sitting 131.00 mm[Hg] - Sitting 97.60 Tympanic 98.00 % 79.00 /min 18.00 breaths/min 817 79850 3 89.00 mm[Hg] - Sitting 156.00 mm[Hg] - Sitting 99.10 Forehead Scan 95.00 % 69.00 /min 20.00 breaths/min 817 01383 7 78.00 mm[Hg] - Sitting 139.00 mm[Hg] - Sitting 99.10 Forehead Scan 93.00 % 63.00 /min 18.00 breaths/min 818 72925 4 74.00 mm[Hg] - Sitting 124.00 mm[Hg] - Sitting 99.60 Forehead Scan 97.00 % 94.00 /min 20.00 breaths/min 818 94030 7 79.00 mm[Hg] - Sitting 133.00 mm[Hg] - Sitting 96.70 Tympanic 96.00 % 60.00 /min 18.00 breaths/min 819 77076 4 71.00 mm[Hg] - Sitting 116.00 mm[Hg] - Sitting 97.50 Tympanic 94.00 % 79.00 /min 20.00 breaths/min 819 24198 0 81.00 mm[Hg] - Sitting 139.00 mm[Hg] - Sitting 98.60 Forehead Scan 95.00 % 67.00 /min 18.00 breaths/min 8120195 8 238.80 NI 819 36281 9 84.00 mm[Hg] - Sitting 154.00 mm[Hg] - Sitting 96.60 Tympanic 97.00 % 66.00 /min 18.00 breaths/min 820 03944 6 58.00 mm[Hg] - Sitting 142.00 mm[Hg] - Sitting 98.90 Tympanic 95.00 % 60.00 /min 16.00 breaths/min 24017 820 58710 2 69.00 mm[Hg] - Sitting 117.00 mm[Hg] - Sitting 97.60 Tympanic 99.00 % 64.00 /min 18.00 breaths/min 52191 821 84854 1 69.00 mm[Hg] - Sitting 138.00 mm[Hg] - Sitting 98.10 Tympanic 95.00 % 60.00 /min 18.00 breaths/min Immunizations Vaccine Date Status Influenza 05/07/2014 Completed Influenza 05/13/2015 Completed Influenza 05/06/2016 Completed Influenza 04/20/2017 Completed Influenza 04/27/2018 Completed (PCV13)Pneumococcal 07/25/2017 Completed (PPSV23)Pneumococcal 03/20/2009 Completed INSURANCE PROVIDERS Policy Number Group Number Description Effective Date End Date [id number] [employer] 07/10/2015 02/26/2019 [id number] [employer] 10/22/2013 07/09/2015
--- OUTSIDE RECORDS SUMMARY | 2023-03-09 21:15 | External Medical Summary | Continuity Of Care Document ---
Author Name Unknown Address [address] [place] [address] [facility] () VITAL SIGNS Date Time Diastolic blood pressure Systolic blood pressure Body height Body weight Temperature SpO2 Blood Sugar Pulse Respirations 101 52731 4 81.00 mm[Hg] - Lying Down 126.00 mm[Hg] - Lying Down 98.60 Forehead Scan 65.00 /min 16.00 breaths/min 105 73747 4 240.60 NI 08278 106 00975 0 240.60 NI Immunizations Vaccine Date Status Influenza 05/07/2014 Completed Influenza 05/13/2015 Completed Influenza 05/06/2016 Completed Influenza 04/20/2017 Completed Influenza 04/27/2018 Completed (PCV13)Pneumococcal 07/25/2017 Completed (PPSV23)Pneumococcal 03/20/2009 Completed INSURANCE PROVIDERS Policy Number Group Number Description Effective Date End Date [id number] [employer] 07/10/2015 02/26/2019 [id number] [employer] 10/22/2013 07/09/2015
--- OUTSIDE RECORDS SUMMARY | 2023-03-09 21:15 | External Medical Summary | Continuity Of Care Document ---
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 02/14 Active N31.9 Neuromuscular dysfun ction of bladder, unspecified 02/14/2019 Active VITAL SIGNS Date Time Diastolic blood pressure Systolic blood pressure Body height Body weight Temperature SpO2 Blood Sugar Pulse Respirations 801 41566 5 73.00 mm[Hg] - Sitting 134.00 mm[Hg] - Sitting 96.40 Tympanic 66.00 /min 18.00 breaths/min 801 11507 3 244.00 NI 808 75068 1 88.00 mm[Hg] - Sitting 154.00 mm[Hg] - Sitting 238.80 NI 99.30 Tympanic 96.00 % 88.00 /min 18.00 breaths/min 808 93273 1 73 NI 809 24911 8 81.00 mm[Hg] - Sitting 140.00 mm[Hg] - Sitting 98.60 Tympanic 96.00 % 84.00 /min 18.00 breaths/min 809 05798 2 80.00 mm[Hg] - Sitting 140.00 mm[Hg] - Sitting 98.70 Tympanic 82.00 /min 18.00 breaths/min 809 03955 9 80.00 mm[Hg] - Sitting 140.00 mm[Hg] - Sitting 98.70 Tympanic 82.00 /min 18.00 breaths/min 810 99848 5 76.00 mm[Hg] - Lying Down 134.00 mm[Hg] - Lying Down 98.30 Tympanic 97.00 % 80.00 /min 18.00 breaths/min 810 37837 6 81.00 mm[Hg] - Sitting 146.00 mm[Hg] - Sitting 97.70 Tympanic 59.00 /min 18.00 breaths/min 810 67148 0 90.00 mm[Hg] - Sitting 142.00 mm[Hg] - Sitting 810 94097 1 98.90 Forehead Scan 67.00 /min 18.00 breaths/min 810 09488 3 81.00 mm[Hg] - Sitting 146.00 mm[Hg] - Sitting 98.90 Tympanic 67.00 /min 18.00 breaths/min 810 04625 9 81.00 mm[Hg] - Sitting 146.00 mm[Hg] - Sitting 98.90 Tympanic 67.00 /min 18.00 breaths/min 811 07191 1 78.00 mm[Hg] - Lying Down 142.00 mm[Hg] - Lying Down 98.70 Forehead Scan 97.00 % 64.00 /min 16.00 breaths/min 18106 811 19582 0 77.00 mm[Hg] - Lying Down 138.00 mm[Hg] - Lying Down 99.10 Forehead Scan 93.00 % 64.00 /min 18.00 breaths/min 811 34779 9 70.00 mm[Hg] - Lying Down 117.00 mm[Hg] - Lying Down 97.10 Tympanic 58.00 /min 18.00 breaths/min 811 05655 2 82.00 mm[Hg] - Sitting 142.00 mm[Hg] - Sitting 97.10 Tympanic 93.00 % 62.00 /min 18.00 breaths/min 811 19572 4 82.00 mm[Hg] - Sitting 142.00 mm[Hg] - Sitting 97.10 Tympanic 62.00 /min 18.00 breaths/min 811 72826 8 82.00 mm[Hg] - Sitting 142.00 mm[Hg] - Sitting 97.10 Tympanic 18.00 breaths/min 812 49902 9 76.00 mm[Hg] - Sitting 136.00 mm[Hg] - Sitting 97.60 Tympanic 18.00 breaths/min 812 87582 8 86.00 mm[Hg] - Sitting 148.00 mm[Hg] - Sitting 97.20 Tympanic 99.00 % 76.00 /min 18.00 breaths/min 812 59671 7 237.80 NI 812 44490 9 82.00 mm[Hg] - Sitting 145.00 mm[Hg] - Sitting 97.20 Tympanic 95.00 % 69.00 /min 18.00 breaths/min 813 79812 0 69.00 mm[Hg] - Sitting 129.00 mm[Hg] - Sitting 98.90 Tympanic 96.00 % 64.00 /min 16.00 breaths/min 814 48534 0 78.00 mm[Hg] - Sitting 138.00 mm[Hg] - Sitting 97.30 Tympanic 98.00 % 78.00 /min 17.00 breaths/min 814 43865 8 85.00 mm[Hg] - Sitting 166.00 mm[Hg] - Sitting 98.70 Tympanic 95.00 % 78.00 /min 20.00 breaths/min 814 82310 0 64.00 mm[Hg] - Sitting 118.00 mm[Hg] - Sitting 97.40 Tympanic 97.00 % 77.00 /min 18.00 breaths/min 815 92446 3 62.00 mm[Hg] - Sitting 127.00 mm[Hg] - Sitting 97.90 Forehead Scan 96.00 % 66.00 /min 16.00 breaths/min 816 99672 3 76.00 mm[Hg] - Sitting 138.00 mm[Hg] - Sitting 97.10 Tympanic 98.00 % 75.00 /min 18.00 breaths/min 816 13166 5 74.00 mm[Hg] - Sitting 131.00 mm[Hg] - Sitting 97.60 Tympanic 98.00 % 79.00 /min 18.00 breaths/min 817 56137 3 89.00 mm[Hg] - Sitting 156.00 mm[Hg] - Sitting 99.10 Forehead Scan 95.00 % 69.00 /min 20.00 breaths/min 817 88995 7 78.00 mm[Hg] - Sitting 139.00 mm[Hg] - Sitting 99.10 Forehead Scan 93.00 % 63.00 /min 18.00 breaths/min 818 27458 4 74.00 mm[Hg] - Sitting 124.00 mm[Hg] - Sitting 99.60 Forehead Scan 97.00 % 94.00 /min 20.00 breaths/min 818 46062 7 79.00 mm[Hg] - Sitting 133.00 mm[Hg] - Sitting 96.70 Tympanic 96.00 % 60.00 /min 18.00 breaths/min 819 64009 4 71.00 mm[Hg] - Sitting 116.00 mm[Hg] - Sitting 97.50 Tympanic 94.00 % 79.00 /min 20.00 breaths/min 819 76995 0 81.00 mm[Hg] - Sitting 139.00 mm[Hg] - Sitting 98.60 Forehead Scan 95.00 % 67.00 /min 18.00 breaths/min 8120195 8 238.80 NI 819 54002 9 84.00 mm[Hg] - Sitting 154.00 mm[Hg] - Sitting 96.60 Tympanic 97.00 % 66.00 /min 18.00 breaths/min 820 80830 6 58.00 mm[Hg] - Sitting 142.00 mm[Hg] - Sitting 98.90 Tympanic 95.00 % 60.00 /min 16.00 breaths/min 30417 820 01523 2 69.00 mm[Hg] - Sitting 117.00 mm[Hg] - Sitting 97.60 Tympanic 99.00 % 64.00 /min 18.00 breaths/min 90242 821 24890 1 69.00 mm[Hg] - Sitting 138.00 mm[Hg] - Sitting 98.10 Tympanic 95.00 % 60.00 /min 18.00 breaths/min Immunizations Vaccine Date Status Influenza 05/07/2014 Completed Influenza 05/13/2015 Completed Influenza 05/06/2016 Completed Influenza 04/20/2017 Completed Influenza 04/27/2018 Completed (PCV13)Pneumococcal 07/25/2017 Completed (PPSV23)Pneumococcal 03/20/2009 Completed INSURANCE PROVIDERS Policy Number Group Number Description Effective Date End Date [id number] [employer] 07/10/2015 02/26/2019 [id number] [employer] 10/22/2013 07/09/2015
--- OUTSIDE RECORDS SUMMARY | 2023-03-09 21:15 | External Medical Summary | Continuity Of Care Document ---
Author Name Unknown Address [address] [place] [address] Organization [facility] () Problems Code Description Start Date End [...] adjustment of urinary device 02/14/2019 Active Z79.01 intermediate (current) use of anticoagulants 02/14 Active N31.9 Neuromuscular dysfun ction of bladder, unspecified 02/14/2019 Active VITAL SIGNS Date Time Diastolic blood pressure Systolic blood pressure Body height Body weight Temperature SpO2 Blood Sugar Pulse Respirations 801 49298 5 73.00 mm[Hg] - Sitting 134.00 mm[Hg] - Sitting 96.40 Tympanic 66.00 /min 18.00 breaths/min 801 57780 3 244.00 NI 808 09413 1 88.00 mm[Hg] - Sitting 154.00 mm[Hg] - Sitting 238.80 NI 99.30 Tympanic 96.00 % 88.00 /min 18.00 breaths/min 808 85629 1 73 NI 809 32102 8 81.00 mm[Hg] - Sitting 140.00 mm[Hg] - Sitting 98.60 Tympanic 96.00 % 84.00 /min 18.00 breaths/min 809 89027 2 80.00 mm[Hg] - Sitting 140.00 mm[Hg] - Sitting 98.70 Tympanic 82.00 /min 18.00 breaths/min 809 12057 9 80.00 mm[Hg] - Sitting 140.00 mm[Hg] - Sitting 98.70 Tympanic 82.00 /min 18.00 breaths/min 810 26631 5 76.00 mm[Hg] - Lying Down 134.00 mm[Hg] - Lying Down 98.30 Tympanic 97.00 % 80.00 /min 18.00 breaths/min 810 10119 6 81.00 mm[Hg] - Sitting 146.00 mm[Hg] - Sitting 97.70 Tympanic 59.00 /min 18.00 breaths/min 810 69516 0 90.00 mm[Hg] - Sitting 142.00 mm[Hg] - Sitting 810 93942 1 98.90 Forehead Scan 67.00 /min 18.00 breaths/min 810 07223 3 81.00 mm[Hg] - Sitting 146.00 mm[Hg] - Sitting 98.90 Tympanic 67.00 /min 18.00 breaths/min 810 87120 9 81.00 mm[Hg] - Sitting 146.00 mm[Hg] - Sitting 98.90 Tympanic 67.00 /min 18.00 breaths/min 811 17320 1 78.00 mm[Hg] - Lying Down 142.00 mm[Hg] - Lying Down 98.70 Forehead Scan 97.00 % 64.00 /min 16.00 breaths/min 77264 811 91405 0 77.00 mm[Hg] - Lying Down 138.00 mm[Hg] - Lying Down 99.10 Forehead Scan 93.00 % 64.00 /min 18.00 breaths/min 811 26750 9 70.00 mm[Hg] - Lying Down 117.00 mm[Hg] - Lying Down 97.10 Tympanic 58.00 /min 18.00 breaths/min 811 01527 2 82.00 mm[Hg] - Sitting 142.00 mm[Hg] - Sitting 97.10 Tympanic 93.00 % 62.00 /min 18.00 breaths/min 811 52311 4 82.00 mm[Hg] - Sitting 142.00 mm[Hg] - Sitting 97.10 Tympanic 62.00 /min 18.00 breaths/min 811 28905 8 82.00 mm[Hg] - Sitting 142.00 mm[Hg] - Sitting 97.10 Tympanic 18.00 breaths/min 812 50746 9 76.00 mm[Hg] - Sitting 136.00 mm[Hg] - Sitting 97.60 Tympanic 18.00 breaths/min 812 16102 8 86.00 mm[Hg] - Sitting 148.00 mm[Hg] - Sitting 97.20 Tympanic 99.00 % 76.00 /min 18.00 breaths/min 812 91471 7 237.80 NI 812 20300 9 82.00 mm[Hg] - Sitting 145.00 mm[Hg] - Sitting 97.20 Tympanic 95.00 % 69.00 /min 18.00 breaths/min 813 81434 0 69.00 mm[Hg] - Sitting 129.00 mm[Hg] - Sitting 98.90 Tympanic 96.00 % 64.00 /min 16.00 breaths/min 814 13650 0 78.00 mm[Hg] - Sitting 138.00 mm[Hg] - Sitting 97.30 Tympanic 98.00 % 78.00 /min 17.00 breaths/min 814 86339 8 85.00 mm[Hg] - Sitting 166.00 mm[Hg] - Sitting 98.70 Tympanic 95.00 % 78.00 /min 20.00 breaths/min 814 01277 0 64.00 mm[Hg] - Sitting 118.00 mm[Hg] - Sitting 97.40 Tympanic 97.00 % 77.00 /min 18.00 breaths/min 815 64644 3 62.00 mm[Hg] - Sitting 127.00 mm[Hg] - Sitting 97.90 Forehead Scan 96.00 % 66.00 /min 16.00 breaths/min 816 35926 3 76.00 mm[Hg] - Sitting 138.00 mm[Hg] - Sitting 97.10 Tympanic 98.00 % 75.00 /min 18.00 breaths/min 816 96929 5 74.00 mm[Hg] - Sitting 131.00 mm[Hg] - Sitting 97.60 Tympanic 98.00 % 79.00 /min 18.00 breaths/min 817 89547 3 89.00 mm[Hg] - Sitting 156.00 mm[Hg] - Sitting 99.10 Forehead Scan 95.00 % 69.00 /min 20.00 breaths/min 817 23191 7 78.00 mm[Hg] - Sitting 139.00 mm[Hg] - Sitting 99.10 Forehead Scan 93.00 % 63.00 /min 18.00 breaths/min 818 45637 4 74.00 mm[Hg] - Sitting 124.00 mm[Hg] - Sitting 99.60 Forehead Scan 97.00 % 94.00 /min 20.00 breaths/min 818 15006 7 79.00 mm[Hg] - Sitting 133.00 mm[Hg] - Sitting 96.70 Tympanic 96.00 % 60.00 /min 18.00 breaths/min 819 73998 4 71.00 mm[Hg] - Sitting 116.00 mm[Hg] - Sitting 97.50 Tympanic 94.00 % 79.00 /min 20.00 breaths/min 819 12961 0 81.00 mm[Hg] - Sitting 139.00 mm[Hg] - Sitting 98.60 Forehead Scan 95.00 % 67.00 /min 18.00 breaths/min 8120195 8 238.80 NI 819 09937 9 84.00 mm[Hg] - Sitting 154.00 mm[Hg] - Sitting 96.60 Tympanic 97.00 % 66.00 /min 18.00 breaths/min 820 69083 6 58.00 mm[Hg] - Sitting 142.00 mm[Hg] - Sitting 98.90 Tympanic 95.00 % 60.00 /min 16.00 breaths/min 76339 820 31460 2 69.00 mm[Hg] - Sitting 117.00 mm[Hg] - Sitting 97.60 Tympanic 99.00 % 64.00 /min 18.00 breaths/min 16132 821 30036 1 69.00 mm[Hg] - Sitting 138.00 mm[Hg] - Sitting 98.10 Tympanic 95.00 % 60.00 /min 18.00 breaths/min Immunizations Vaccine Date Status Influenza 05/07/2014 Completed Influenza 05/13/2015 Completed Influenza 05/06/2016 Completed Influenza 04/20/2017 Completed Influenza 04/27/2018 Completed (PCV13)Pneumococcal 07/25/2017 Completed (PPSV23)Pneumococcal 03/20/2009 Completed INSURANCE PROVIDERS Policy Number Group Number Description Effective Date End Date [id number] Blue Cross 07/10/2015 02/26/2019 [id number] [employer] 10/22/2013 07/09/2015
--- OUTSIDE RECORDS SUMMARY | 2023-03-09 21:15 | External Medical Summary | Continuity Of Care Document ---
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 04/08/2019 00/0 Active 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,bladder,uns 04/08/2019 Active VITAL SIGNS Date Time Diastolic blood pressure Systolic blood pressure Body height Body weight Temperature SpO2 Blood Sugar Pulse Respirations 101 72699 4 81.00 mm[Hg] - Lying Down 126.00 mm[Hg] - Lying Down 98.60 Forehead Scan 65.00 /min 16.00 breaths/min 105 62016 4 240.60 NI 106 16935 0 240.60 NI Immunizations Vaccine Date Status Influenza 05/07/2014 Completed Influenza 05/13/2015 Completed Influenza 05/06/2016 Completed Influenza 04/20/2017 Completed Influenza 04/27/2018 Completed (PCV13)Pneumococcal 07/25/2017 Completed (PPSV23)Pneumococcal 03/20/2009 Completed INSURANCE PROVIDERS Policy Number Group Number Description Effective Date End Date [id number] Blue Cross 07/10/2015 02/26/2019 [id number] [employer] 10/22/2013 07/09/2015
--- OUTSIDE RECORDS SUMMARY | 2023-03-09 21:15 | External Medical Summary | Continuity Of Care Document ---
Author Name Unknown Address [address] [place] [address] Organization [facility] () Problems Code Description Start Date End [...] Temperature SpO2 Blood Sugar Pulse Respirations 801 77126 5 73.00 mm[Hg] - Sitting 134.00 mm[Hg] - Sitting 96.40 Tympanic 66.00 /min 18.00 breaths/min 801 17775 3 244.00 NI 808 73109 1 88.00 mm[Hg] - Sitting 154.00 mm[Hg] - Sitting 238.80 NI 99.30 Tympanic 96.00 % 88.00 /min 18.00 breaths/min 808 97071 1 73 NI 809 62814 8 81.00 mm[Hg] - Sitting 140.00 mm[Hg] - Sitting 98.60 Tympanic 96.00 % 84.00 /min 18.00 breaths/min 809 66466 2 80.00 mm[Hg] - Sitting 140.00 mm[Hg] - Sitting 98.70 Tympanic 82.00 /min 18.00 breaths/min 809 91546 9 80.00 mm[Hg] - Sitting 140.00 mm[Hg] - Sitting 98.70 Tympanic 82.00 /min 18.00 breaths/min 810 95047 5 76.00 mm[Hg] - Lying Down 134.00 mm[Hg] - Lying Down 98.30 Tympanic 97.00 % 80.00 /min 18.00 breaths/min 810 62959 6 81.00 mm[Hg] - Sitting 146.00 mm[Hg] - Sitting 97.70 Tympanic 59.00 /min 18.00 breaths/min 810 53877 0 90.00 mm[Hg] - Sitting 142.00 mm[Hg] - Sitting 810 10002 1 98.90 Forehead Scan 67.00 /min 18.00 breaths/min 810 32763 3 81.00 mm[Hg] - Sitting 146.00 mm[Hg] - Sitting 98.90 Tympanic 67.00 /min 18.00 breaths/min 810 15824 9 81.00 mm[Hg] - Sitting 146.00 mm[Hg] - Sitting 98.90 Tympanic 67.00 /min 18.00 breaths/min 811 16499 1 78.00 mm[Hg] - Lying Down 142.00 mm[Hg] - Lying Down 98.70 Forehead Scan 97.00 % 64.00 /min 16.00 breaths/min 83316 811 80394 0 77.00 mm[Hg] - Lying Down 138.00 mm[Hg] - Lying Down 99.10 Forehead Scan 93.00 % 64.00 /min 18.00 breaths/min 811 34562 9 70.00 mm[Hg] - Lying Down 117.00 mm[Hg] - Lying Down 97.10 Tympanic 58.00 /min 18.00 breaths/min 811 13303 2 82.00 mm[Hg] - Sitting 142.00 mm[Hg] - Sitting 97.10 Tympanic 93.00 % 62.00 /min 18.00 breaths/min 811 09447 4 82.00 mm[Hg] - Sitting 142.00 mm[Hg] - Sitting 97.10 Tympanic 62.00 /min 18.00 breaths/min 811 38194 8 82.00 mm[Hg] - Sitting 142.00 mm[Hg] - Sitting 97.10 Tympanic 18.00 breaths/min 812 88976 9 76.00 mm[Hg] - Sitting 136.00 mm[Hg] - Sitting 97.60 Tympanic 18.00 breaths/min 812 05822 8 86.00 mm[Hg] - Sitting 148.00 mm[Hg] - Sitting 97.20 Tympanic 99.00 % 76.00 /min 18.00 breaths/min 812 27056 7 237.80 NI 812 67813 9 82.00 mm[Hg] - Sitting 145.00 mm[Hg] - Sitting 97.20 Tympanic 95.00 % 69.00 /min 18.00 breaths/min 813 12434 0 69.00 mm[Hg] - Sitting 129.00 mm[Hg] - Sitting 98.90 Tympanic 96.00 % 64.00 /min 16.00 breaths/min 814 71542 0 78.00 mm[Hg] - Sitting 138.00 mm[Hg] - Sitting 97.30 Tympanic 98.00 % 78.00 /min 17.00 breaths/min 814 64114 8 85.00 mm[Hg] - Sitting 166.00 mm[Hg] - Sitting 98.70 Tympanic 95.00 % 78.00 /min 20.00 breaths/min 814 26628 0 64.00 mm[Hg] - Sitting 118.00 mm[Hg] - Sitting 97.40 Tympanic 97.00 % 77.00 /min 18.00 breaths/min 815 43860 3 62.00 mm[Hg] - Sitting 127.00 mm[Hg] - Sitting 97.90 Forehead Scan 96.00 % 66.00 /min 16.00 breaths/min 816 62088 3 76.00 mm[Hg] - Sitting 138.00 mm[Hg] - Sitting 97.10 Tympanic 98.00 % 75.00 /min 18.00 breaths/min 816 73432 5 74.00 mm[Hg] - Sitting 131.00 mm[Hg] - Sitting 97.60 Tympanic 98.00 % 79.00 /min 18.00 breaths/min 817 81511 3 89.00 mm[Hg] - Sitting 156.00 mm[Hg] - Sitting 99.10 Forehead Scan 95.00 % 69.00 /min 20.00 breaths/min 817 68731 7 78.00 mm[Hg] - Sitting 139.00 mm[Hg] - Sitting 99.10 Forehead Scan 93.00 % 63.00 /min 18.00 breaths/min 818 01974 4 74.00 mm[Hg] - Sitting 124.00 mm[Hg] - Sitting 99.60 Forehead Scan 97.00 % 94.00 /min 20.00 breaths/min 818 67317 7 79.00 mm[Hg] - Sitting 133.00 mm[Hg] - Sitting 96.70 Tympanic 96.00 % 60.00 /min 18.00 breaths/min 819 86846 4 71.00 mm[Hg] - Sitting 116.00 mm[Hg] - Sitting 97.50 Tympanic 94.00 % 79.00 /min 20.00 breaths/min 819 42040 0 81.00 mm[Hg] - Sitting 139.00 mm[Hg] - Sitting 98.60 Forehead Scan 95.00 % 67.00 /min 18.00 breaths/min 8120195 8 238.80 NI 819 41404 9 84.00 mm[Hg] - Sitting 154.00 mm[Hg] - Sitting 96.60 Tympanic 97.00 % 66.00 /min 18.00 breaths/min 820 45153 6 58.00 mm[Hg] - Sitting 142.00 mm[Hg] - Sitting 98.90 Tympanic 95.00 % 60.00 /min 16.00 breaths/min 07735 820 57348 2 69.00 mm[Hg] - Sitting 117.00 mm[Hg] - Sitting 97.60 Tympanic 99.00 % 64.00 /min 18.00 breaths/min 72868 821 41603 1 69.00 mm[Hg] - Sitting 138.00 mm[Hg] - Sitting 98.10 Tympanic 95.00 % 60.00 /min 18.00 breaths/min Immunizations Vaccine Date Status Influenza 05/07/2014 Completed Influenza 05/13/2015 Completed Influenza 05/06/2016 Completed Influenza 04/20/2017 Completed Influenza 04/27/2018 Completed (PCV13)Pneumococcal 07/25/2017 Completed (PPSV23)Pneumococcal 03/20/2009 Completed INSURANCE PROVIDERS Policy Number Group Number Description Effective Date End Date [id number] Blue Cross 07/10/2015 02/26/2019 [id number] [employer] 10/22/2013 07/09/2015
--- OUTSIDE RECORDS SUMMARY | 2023-03-09 21:15 | External Medical Summary | Continuity Of Care Document ---
Author Name Unknown Address [address] [place] [address] Organization 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 04/08/2019 00/0 Active 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,bladder,uns 04/08/2019 Active S82.201D Uns fx,shft rt tibia,SE,clsd,routn 06/12/2019 0 Active R53.1 Weakness 08/01/2019 Active VITAL SIGNS Date Time Diastolic blood pressure Systolic blood pressure Body height Body weight Temperature SpO2 Blood Sugar Pulse Respirations 101 38852 0 72.00 mm[Hg] - Sitting 138.00 mm[Hg] - Sitting 241.60 NI 98.10 Tympanic 60.00 /min 18.00 breaths/min Immunizations Vaccine Date Status Influenza 05/07/2014 Completed Influenza 05/13/2015 Completed Influenza 05/06/2016 Completed Influenza 04/20/2017 Completed Influenza 04/27/2018 Completed (PCV13)Pneumococcal 07/25/2017 Completed (PPSV23)Pneumococcal 03/20/2009 Completed INSURANCE PROVIDERS Policy Number Group Number Description Effective Date End Date [id number] Blue Cross 07/10/2015 02/26/2019 [id number] [employer] 10/22/2013 07/09/2015
--- OUTSIDE RECORDS SUMMARY | 2023-03-09 21:15 | External Medical Summary | Continuity Of Care Document ---
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 00/0 Active 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,bladder,uns 04/08/2019 Active S82.201D Uns fx,shft rt tibia,SE,clsd,routn 06/12/2019 0 Active R53.1 Weakness 08/01/2019 Active VITAL SIGNS Date Time Diastolic blood pressure Systolic blood pressure Body height Body weight Temperature SpO2 Blood Sugar Pulse Respirations 128 66591 5 63.00 mm[Hg] - Sitting 104.00 mm[Hg] - Sitting 97.50 Tympanic 92.00 % 59.00 /min 16.00 breaths/min 81464 201 96211 8 75.00 mm[Hg] - Sitting 143.00 mm[Hg] - Sitting 240.50 NI 97.80 Forehead Scan 64.00 /min 16.00 breaths/min Immunizations Vaccine Date Status Influenza 05/07/2014 Completed Influenza 05/13/2015 Completed Influenza 05/06/2016 Completed Influenza 04/20/2017 Completed Influenza 04/27/2018 Completed (PCV13)Pneumococcal 07/25/2017 Completed (PPSV23)Pneumococcal 03/20/2009 Completed INSURANCE PROVIDERS Policy Number Group Number Description Effective Date End Date [id number] Blue Cross 07/10/2015 [id number] [employer] 10/22/2013 07/09/2015
--- OUTSIDE RECORDS SUMMARY | 2023-03-09 21:15 | External Medical Summary | Continuity Of Care Document ---
Author Name Unknown Address [address] [place] [address] [facility] () VITAL SIGNS Date Time Diastolic blood pressure Systolic blood pressure Body height Body weight Temperature SpO2 Blood Sugar Pulse Respirations 902 36204 5 240.00 NI 907 17380 4 73.00 mm[Hg] - Sitting 137.00 mm[Hg] - Sitting 98.70 Tympanic 94.00 % 68.00 /min 18.00 breaths/min 923 04612 0 70.00 mm[Hg] - Sitting 107.00 mm[Hg] - Sitting 98.10 Tympanic 90.00 % 85.00 /min 20.00 breaths/min 927 40045 9 82.00 mm[Hg] - Sitting 149.00 mm[Hg] - Sitting 99.10 Tympanic 94.00 % 64.00 /min 18.00 breaths/min 928 33078 6 97.00 mm[Hg] - Sitting 181.00 mm[Hg] - Sitting 99.30 Tympanic 83.00 /min 18.00 breaths/min 930 27088 0 78.00 mm[Hg] - Sitting 141.00 mm[Hg] - Sitting 99.60 Tympanic 98.00 % 80.00 /min 18.00 breaths/min 930 20808 4 73 NI 001 28705 0 77.00 mm[Hg] - Sitting 144.00 mm[Hg] - Sitting 97.80 Tympanic 96.00 % 70.00 /min 18.00 breaths/min 001 36151 0 77.00 mm[Hg] - Sitting 144.00 mm[Hg] - Sitting 97.80 Tympanic 96.00 % 70.00 /min 18.00 breaths/min 001 27938 3 77.00 mm[Hg] - Sitting 144.00 mm[Hg] - Sitting 240.00 NI 97.80 Tympanic 70.00 /min 18.00 breaths/min 002 66166 0 76.00 mm[Hg] - Sitting 134.00 mm[Hg] - Sitting 97.80 Forehead Scan 98.00 % 78.00 /min 18.00 breaths/min 002 03857 0 97.00 % 002 49772 6 74.00 mm[Hg] - Sitting 134.00 mm[Hg] - Sitting 97.80 Tympanic 18.00 breaths/min 002 07071 4 77.00 /min Immunizations Vaccine Date Status Influenza 05/07/2014 Completed Influenza 05/13/2015 Completed Influenza 05/06/2016 Completed Influenza 04/20/2017 Completed Influenza 04/27/2018 Completed (PCV13)Pneumococcal 07/25/2017 Completed (PPSV23)Pneumococcal 03/20/2009 Completed INSURANCE PROVIDERS Policy Number Group Number Description Effective Date End Date [id number] Blue Cross 07/10/2015 02/26/2019 [id number] [employer] 10/22/2013 07/09/2015
--- OUTSIDE RECORDS SUMMARY | 2023-03-09 21:15 | External Medical Summary | Continuity Of Care Document ---
Author Name Unknown Address [address] [place] [address] [facility] () VITAL SIGNS Date Time Diastolic blood pressure Systolic blood pressure Body height Body weight Temperature SpO2 Blood Sugar Pulse Respirations 902 34382 5 240.00 NI 907 04925 4 73.00 mm[Hg] - Sitting 137.00 mm[Hg] - Sitting 98.70 Tympanic 94.00 % 68.00 /min 18.00 breaths/min 923 04662 0 70.00 mm[Hg] - Sitting 107.00 mm[Hg] - Sitting 98.10 Tympanic 90.00 % 85.00 /min 20.00 breaths/min 927 93730 9 82.00 mm[Hg] - Sitting 149.00 mm[Hg] - Sitting 99.10 Tympanic 94.00 % 64.00 /min 18.00 breaths/min 928 37547 6 97.00 mm[Hg] - Sitting 181.00 mm[Hg] - Sitting 99.30 Tympanic 83.00 /min 18.00 breaths/min 930 20471 0 78.00 mm[Hg] - Sitting 141.00 mm[Hg] - Sitting 99.60 Tympanic 98.00 % 80.00 /min 18.00 breaths/min 930 67244 4 73 NI 001 40635 0 77.00 mm[Hg] - Sitting 144.00 mm[Hg] - Sitting 97.80 Tympanic 96.00 % 70.00 /min 18.00 breaths/min 001 78666 0 77.00 mm[Hg] - Sitting 144.00 mm[Hg] - Sitting 97.80 Tympanic 96.00 % 70.00 /min 18.00 breaths/min 001 80051 3 77.00 mm[Hg] - Sitting 144.00 mm[Hg] - Sitting 240.00 NI 97.80 Tympanic 70.00 /min 18.00 breaths/min 002 91232 0 76.00 mm[Hg] - Sitting 134.00 mm[Hg] - Sitting 97.80 Forehead Scan 98.00 % 78.00 /min 18.00 breaths/min 002 72097 0 97.00 % 002 86283 6 74.00 mm[Hg] - Sitting 134.00 mm[Hg] - Sitting 97.80 Tympanic 18.00 breaths/min 002 27108 4 77.00 /min Immunizations Vaccine Date Status Influenza 05/07/2014 Completed Influenza 05/13/2015 Completed Influenza 05/06/2016 Completed Influenza 04/20/2017 Completed Influenza 04/27/2018 Completed (PCV13)Pneumococcal 07/25/2017 Completed (PPSV23)Pneumococcal 03/20/2009 Completed INSURANCE PROVIDERS Policy Number Group Number Description Effective Date End Date [id number] Blue Cross 07/10/2015 02/26/2019 [id number] [employer] 10/22/2013 07/09/2015
--- OUTSIDE RECORDS SUMMARY | 2023-03-09 21:15 | External Medical Summary | Continuity Of Care Document ---
Author Name Unknown Address [address] [place] [address] [facility] () VITAL SIGNS Date Time Diastolic blood pressure Systolic blood pressure Body height Body weight Temperature SpO2 Blood Sugar Pulse Respirations 901 44498 8 83.00 mm[Hg] - Sitting 134.00 mm[Hg] - Sitting 240.00 NI 98.10 Tympanic 65.00 /min 19.00 breaths/min 901 21043 0 83.00 mm[Hg] - Sitting 134.00 mm[Hg] - Sitting 98.10 Tympanic 65.00 /min 18.00 breaths/min 902 21556 5 240.00 NI 77389 907 69481 4 73.00 mm[Hg] - Sitting 137.00 mm[Hg] - Sitting 98.70 Tympanic 94.00 % 68.00 /min 18.00 breaths/min 38777 923 49854 0 70.00 mm[Hg] - Sitting 107.00 mm[Hg] - Sitting 98.10 Tympanic 90.00 % 85.00 /min 20.00 breaths/min 77494 927 83661 9 82.00 mm[Hg] - Sitting 149.00 mm[Hg] - Sitting 99.10 Tympanic 94.00 % 64.00 /min 18.00 breaths/min 04667 928 88344 6 97.00 mm[Hg] - Sitting 181.00 mm[Hg] - Sitting 99.30 Tympanic 83.00 /min 18.00 breaths/min 00618 930 03644 0 78.00 mm[Hg] - Sitting 141.00 mm[Hg] - Sitting 99.60 Tympanic 98.00 % 80.00 /min 18.00 breaths/min 36099 930 75614 4 73 NI Immunizations Vaccine Date Status Influenza 05/07/2014 Completed Influenza 05/13/2015 Completed Influenza 05/06/2016 Completed Influenza 04/20/2017 Completed Influenza 04/27/2018 Completed (PCV13)Pneumococcal 07/25/2017 Completed (PPSV23)Pneumococcal 03/20/2009 Completed INSURANCE PROVIDERS Policy Number Group Number Description Effective Date End Date [id number] Blue Cross 07/10/2015 02/26/2019 [id number] [employer] 10/22/2013 07/09/2015
--- OUTSIDE RECORDS SUMMARY | 2023-03-09 21:15 | External Medical Summary | Continuity Of Care Document ---
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 04/08/2019 00/0 Active 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,bladder,uns 04/08/2019 Active S82.201D Uns fx,shft rt tibia,SE,clsd,routn 06/12/2019 0 Active VITAL SIGNS Date Time Diastolic blood pressure Systolic blood pressure Body height Body weight Temperature SpO2 Blood Sugar Pulse Respirations 101 61866 0 72.00 mm[Hg] - Sitting 138.00 mm[Hg] - Sitting 241.60 NI 98.10 Tympanic 60.00 /min 18.00 breaths/min Immunizations Vaccine Date Status Influenza 05/07/2014 Completed Influenza 05/13/2015 Completed Influenza 05/06/2016 Completed Influenza 04/20/2017 Completed Influenza 04/27/2018 Completed (PCV13)Pneumococcal 07/25/2017 Completed (PPSV23)Pneumococcal 03/20/2009 Completed INSURANCE PROVIDERS Policy Number Group Number Description Effective Date End Date [id number] Blue Cross 07/10/2015 02/26/2019 [id number] [employer] 10/22/2013 07/09/2015
--- OUTSIDE RECORDS SUMMARY | 2023-03-09 21:15 | External Medical Summary | Continuity Of Care Document ---
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 04/08/2019 00/0 Active 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,bladder,uns 04/08/2019 Active S82.201D Uns fx,shft rt tibia,SE,clsd,routn 06/12/2019 0 Active R53.1 Weakness 08/01/2019 Active VITAL SIGNS Date Time Diastolic blood pressure Systolic blood pressure Body height Body weight Temperature SpO2 Blood Sugar Pulse Respirations 101 55956 0 72.00 mm[Hg] - Sitting 138.00 mm[Hg] - Sitting 241.60 NI 98.10 Tympanic 60.00 /min 18.00 breaths/min 98990 128 57463 5 63.00 mm[Hg] - Sitting 104.00 mm[Hg] - Sitting 97.50 Tympanic 92.00 % 59.00 /min 16.00 breaths/min Immunizations Vaccine Date Status Influenza 05/07/2014 Completed Influenza 05/13/2015 Completed Influenza 05/06/2016 Completed Influenza 04/20/2017 Completed Influenza 04/27/2018 Completed (PCV13)Pneumococcal 07/25/2017 Completed (PPSV23)Pneumococcal 03/20/2009 Completed INSURANCE PROVIDERS Policy Number Group Number Description Effective Date End Date [id number] [employer] Cross 07/10/2015 02/26/2019 [id number] [employer] 10/22/2013 07/09/2015
--- OUTSIDE RECORDS SUMMARY | 2023-03-09 21:15 | External Medical Summary | Continuity Of Care Document ---
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 04/08/2019 Active 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,bladder,uns 04/08/2019 Active VITAL SIGNS Date Time Diastolic blood pressure Systolic blood pressure Body height Body weight Temperature SpO2 Blood Sugar Pulse Respirations 101 94826 4 81.00 mm[Hg] - Lying Down 126.00 mm[Hg] - Lying Down 98.60 Forehead Scan 65.00 /min 16.00 breaths/min 105 55342 4 240.60 NI 106 50610 0 240.60 NI Immunizations Vaccine Date Status Influenza 05/07/2014 Completed Influenza 05/13/2015 Completed Influenza 05/06/2016 Completed Influenza 04/20/2017 Completed Influenza 04/27/2018 Completed (PCV13)Pneumococcal 07/25/2017 Completed (PPSV23)Pneumococcal 03/20/2009 Completed INSURANCE PROVIDERS Policy Number Group Number Description Effective Date End Date [id number] [employer] 07/10/2015 02/26/2019 [id number] [employer] 10/22/2013 07/09/2015
--- OUTSIDE RECORDS SUMMARY | 2023-03-09 21:15 | External Medical Summary | Continuity Of Care Document ---
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00 mm[Hg] - Sitting 140.00 mm[Hg] - Sitting 98.70 Tympanic 82.00 /min 18.00 breaths/min 810 89251 5 76.00 mm[Hg] - Lying Down 134.00 mm[Hg] - Lying Down 98.30 Tympanic 97.00 % 80.00 /min 18.00 breaths/min 810 78945 6 81.00 mm[Hg] - Sitting 146.00 mm[Hg] - Sitting 97.70 Tympanic 59.00 /min 18.00 breaths/min 810 16687 0 90.00 mm[Hg] - Sitting 142.00 mm[Hg] - Sitting 810 26919 1 98.90 Forehead Scan 67.00 /min 18.00 breaths/min 810 04307 3 81.00 mm[Hg] - Sitting 146.00 mm[Hg] - Sitting 98.90 Tympanic 67.00 /min 18.00 breaths/min 810 71653 9 81.00 mm[Hg] - Sitting 146.00 mm[Hg] - Sitting 98.90 Tympanic 67.00 /min 18.00 breaths/min 811 16650 1 78.00 mm[Hg] - Lying Down 142.00 mm[Hg] - Lying Down 98.70 Forehead Scan 97.00 % 64.00 /min 16.00 breaths/min 811 25288 0 77.00 mm[Hg] - Lying Down 138.00 mm[Hg] - Lying Down 99.10 Forehead Scan 93.00 % 64.00 /min 18.00 breaths/min 811 12964 9 70.00 mm[Hg] - Lying Down 117.00 mm[Hg] - Lying Down 97.10 Tympanic 58.00 /min 18.00 breaths/min 811 57958 2 82.00 mm[Hg] - Sitting 142.00 mm[Hg] - Sitting 97.10 Tympanic 93.00 % 62.00 /min 18.00 breaths/min 811 89860 4 82.00 mm[Hg] - Sitting 142.00 mm[Hg] - Sitting 97.10 Tympanic 62.00 /min 18.00 breaths/min 811 66264 8 82.00 mm[Hg] - Sitting 142.00 mm[Hg] - Sitting 97.10 Tympanic 18.00 breaths/min 812 54064 9 76.00 mm[Hg] - Sitting 136.00 mm[Hg] - Sitting 97.60 Tympanic 18.00 breaths/min 812 07559 8 86.00 mm[Hg] - Sitting 148.00 mm[Hg] - Sitting 97.20 Tympanic 99.00 % 76.00 /min 18.00 breaths/min 812 61143 7 237.80 NI 812 93293 9 82.00 mm[Hg] - Sitting 145.00 mm[Hg] - Sitting 97.20 Tympanic 95.00 % 69.00 /min 18.00 breaths/min 813 89946 0 69.00 mm[Hg] - Sitting 129.00 mm[Hg] - Sitting 98.90 Tympanic 96.00 % 64.00 /min 16.00 breaths/min 814 79318 0 78.00 mm[Hg] - Sitting 138.00 mm[Hg] - Sitting 97.30 Tympanic 98.00 % 78.00 /min 17.00 breaths/min 814 72217 8 85.00 mm[Hg] - Sitting 166.00 mm[Hg] - Sitting 98.70 Tympanic 95.00 % 78.00 /min 20.00 breaths/min 814 60385 0 64.00 mm[Hg] - Sitting 118.00 mm[Hg] - Sitting 97.40 Tympanic 97.00 % 77.00 /min 18.00 breaths/min 815 76114 3 62.00 mm[Hg] - Sitting 127.00 mm[Hg] - Sitting 97.90 Forehead Scan 96.00 % 66.00 /min 16.00 breaths/min 816 75537 3 76.00 mm[Hg] - Sitting 138.00 mm[Hg] - Sitting 97.10 Tympanic 98.00 % 75.00 /min 18.00 breaths/min 816 38214 5 74.00 mm[Hg] - Sitting 131.00 mm[Hg] - Sitting 97.60 Tympanic 98.00 % 79.00 /min 18.00 breaths/min 817 61874 3 89.00 mm[Hg] - Sitting 156.00 mm[Hg] - Sitting 99.10 Forehead Scan 95.00 % 69.00 /min 20.00 breaths/min 817 02165 7 78.00 mm[Hg] - Sitting 139.00 mm[Hg] - Sitting 99.10 Forehead Scan 93.00 % 63.00 /min 18.00 breaths/min 818 05717 4 74.00 mm[Hg] - Sitting 124.00 mm[Hg] - Sitting 99.60 Forehead Scan 97.00 % 94.00 /min 20.00 breaths/min 818 26427 7 79.00 mm[Hg] - Sitting 133.00 mm[Hg] - Sitting 96.70 Tympanic 96.00 % 60.00 /min 18.00 breaths/min 819 50192 4 71.00 mm[Hg] - Sitting 116.00 mm[Hg] - Sitting 97.50 Tympanic 94.00 % 79.00 /min 20.00 breaths/min 819 99527 0 81.00 mm[Hg] - Sitting 139.00 mm[Hg] - Sitting 98.60 Forehead Scan 95.00 % 67.00 /min 18.00 breaths/min 819 89172 8 238.80 [place] [address] 819 78842 9 84.00 mm[Hg] - Sitting 154.00 mm[Hg] - Sitting 96.60 Tympanic 97.00 % 66.00 /min 18.00 breaths/min 54985 820 80860 6 58.00 mm[Hg] - Sitting 142.00 mm[Hg] - Sitting 98.90 Tympanic 95.00 % 60.00 /min 16.00 breaths/min 91441 820 63895 2 69.00 mm[Hg] - Sitting 117.00 mm[Hg] - Sitting 97.60 Tympanic 99.00 % 64.00 /min 18.00 breaths/min 77021 821 63078 0 92.00 mm[Hg] - Sitting 149.00 mm[Hg] - Sitting 97.80 Tympanic 94.00 % 71.00 /min 18.00 breaths/min 94124 821 58025 1 69.00 mm[Hg] - Sitting 138.00 mm[Hg] - Sitting 98.10 Tympanic 95.00 % 60.00 /min 18.00 breaths/min 29132 822 82020 2 87.00 mm[Hg] - Sitting 150.00 mm[Hg] - Sitting 98.10 Forehead Scan 96.00 % 65.00 /min 18.00 breaths/min 09515 823 63784 3 78.00 mm[Hg] - Sitting 142.00 mm[Hg] - Sitting 99.10 Forehead Scan 20.00 breaths/min 66960 823 29290 3 95.00 % 64.00 /min 02871 823 24479 4 83.00 mm[Hg] - Sitting 145.00 mm[Hg] - Sitting 97.40 Tympanic 97.00 % 58.00 /min 18.00 breaths/min 44632 823 21309 1 82.00 mm[Hg] - Sitting 152.00 mm[Hg] - Sitting 96.90 Tympanic 96.00 % 68.00 /min 18.00 breaths/min 52697 826 75948 7 241.60 [place] [address] 901 15392 8 83.00 mm[Hg] - Sitting 134.00 mm[Hg] - Sitting 240.00 NI 98.10 Tympanic 65.00 /min 19.00 breaths/min 99131 901 33438 0 83.00 mm[Hg] - Sitting 134.00 mm[Hg] - Sitting 98.10 Tympanic 65.00 /min 18.00 breaths/min 20463 902 16174 5 240.00 NI Immunizations Vaccine Date Status Influenza 05/07/2014 Completed Influenza 05/13/2015 Completed Influenza 05/06/2016 Completed Influenza 04/20/2017 Completed Influenza 04/27/2018 Completed (PCV13)Pneumococcal 07/25/2017 Completed (PPSV23)Pneumococcal 03/20/2009 Completed INSURANCE PROVIDERS Policy Number Group Number Description Effective Date End Date [id number] [employer] 07/10/2015 02/26/2019 [id number] [place] 10/22/2013 07/09/2015
--- OUTSIDE RECORDS SUMMARY | 2023-03-09 21:15 | External Medical Summary | Continuity Of Care Document ---
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/0 Active 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,bladder,uns 04/08/2019 Active S82.201D Uns fx,shft rt tibia,SE,clsd,routn 06/12/2019 0 Active VITAL SIGNS Date Time Diastolic blood pressure Systolic blood pressure Body height Body weight Temperature SpO2 Blood Sugar Pulse Respirations 105 40751 4 240.60 NI 106 10363 0 240.60 NI 201 94326 9 85.00 mm[Hg] - Sitting 152.00 mm[Hg] - Sitting 239.60 NI 98.60 Tympanic 64.00 /min 16.00 breaths/min Immunizations Vaccine Date Status Influenza 05/07/2014 Completed Influenza 05/13/2015 Completed Influenza 05/06/2016 Completed Influenza 04/20/2017 Completed Influenza 04/27/2018 Completed (PCV13)Pneumococcal 07/25/2017 Completed (PPSV23)Pneumococcal 03/20/2009 Completed INSURANCE PROVIDERS Policy Number Group Number Description Effective Date End Date [id number] [employer] 07/10/2015 02/26/2019 [id number] [employer] 10/22/2013 07/09/2015
--- OUTSIDE RECORDS SUMMARY | 2023-03-09 21:15 | External Medical Summary | Continuity Of Care Document ---
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, unspecified 02/14/2019 Active VITAL SIGNS Date Time Diastolic blood pressure Systolic blood pressure Body height Body weight Temperature SpO2 Blood Sugar Pulse Respirations 801 90592 5 73.00 mm[Hg] - Sitting 134.00 mm[Hg] - Sitting 96.40 Tympanic 66.00 /min 18.00 breaths/min 801 98575 3 244.00 NI 808 97100 1 88.00 mm[Hg] - Sitting 154.00 mm[Hg] - Sitting 238.80 NI 99.30 Tympanic 96.00 % 88.00 /min 18.00 breaths/min 808 13216 1 73 NI 809 59563 8 81.00 mm[Hg] - Sitting 140.00 mm[Hg] - Sitting 98.60 Tympanic 96.00 % 84.00 /min 18.00 breaths/min 809 14629 2 80.00 mm[Hg] - Sitting 140.00 mm[Hg] - Sitting 98.70 Tympanic 82.00 /min 18.00 breaths/min Immunizations Vaccine Date Status Influenza 05/07/2014 Completed Influenza 05/13/2015 Completed Influenza 05/06/2016 Completed Influenza 04/20/2017 Completed Influenza 04/27/2018 Completed (PCV13)Pneumococcal 07/25/2017 Completed (PPSV23)Pneumococcal 03/20/2009 Completed INSURANCE PROVIDERS Policy Number Group Number Description Effective Date End Date [id number] [employer] 07/10/2015 [id number] [employer] 10/22/2013 07/09/2015
--- OUTSIDE RECORDS SUMMARY | 2023-03-09 21:15 | External Medical Summary | Continuity Of Care Document ---
Author Name Unknown Address [address] [place] [address] Organization [facility] () Problems Code Description Start Date End [...] Temperature SpO2 Blood Sugar Pulse Respirations 801 84581 5 73.00 mm[Hg] - Sitting 134.00 mm[Hg] - Sitting 96.40 Tympanic 66.00 /min 18.00 breaths/min 801 11025 3 244.00 NI 808 78067 1 88.00 mm[Hg] - Sitting 154.00 mm[Hg] - Sitting 238.80 NI 99.30 Tympanic 96.00 % 88.00 /min 18.00 breaths/min 808 42612 1 73 NI 809 44424 8 81.00 mm[Hg] - Sitting 140.00 mm[Hg] - Sitting 98.60 Tympanic 96.00 % 84.00 /min 18.00 breaths/min 809 52170 2 80.00 mm[Hg] - Sitting 140.00 mm[Hg] - Sitting 98.70 Tympanic 82.00 /min 18.00 breaths/min 809 03928 9 80.00 mm[Hg] - Sitting 140.00 mm[Hg] - Sitting 98.70 Tympanic 82.00 /min 18.00 breaths/min 810 27390 5 76.00 mm[Hg] - Lying Down 134.00 mm[Hg] - Lying Down 98.30 Tympanic 97.00 % 80.00 /min 18.00 breaths/min 810 20699 6 81.00 mm[Hg] - Sitting 146.00 mm[Hg] - Sitting 97.70 Tympanic 59.00 /min 18.00 breaths/min 810 84838 0 90.00 mm[Hg] - Sitting 142.00 mm[Hg] - Sitting 810 19809 1 98.90 Forehead Scan 67.00 /min 18.00 breaths/min 810 92425 3 81.00 mm[Hg] - Sitting 146.00 mm[Hg] - Sitting 98.90 Tympanic 67.00 /min 18.00 breaths/min 810 75180 9 81.00 mm[Hg] - Sitting 146.00 mm[Hg] - Sitting 98.90 Tympanic 67.00 /min 18.00 breaths/min 811 63585 1 78.00 mm[Hg] - Lying Down 142.00 mm[Hg] - Lying Down 98.70 Forehead Scan 97.00 % 64.00 /min 16.00 breaths/min 49745 811 47516 0 77.00 mm[Hg] - Lying Down 138.00 mm[Hg] - Lying Down 99.10 Forehead Scan 93.00 % 64.00 /min 18.00 breaths/min 811 30778 9 70.00 mm[Hg] - Lying Down 117.00 mm[Hg] - Lying Down 97.10 Tympanic 58.00 /min 18.00 breaths/min 811 73526 2 82.00 mm[Hg] - Sitting 142.00 mm[Hg] - Sitting 97.10 Tympanic 93.00 % 62.00 /min 18.00 breaths/min 811 17961 4 82.00 mm[Hg] - Sitting 142.00 mm[Hg] - Sitting 97.10 Tympanic 62.00 /min 18.00 breaths/min 811 56164 8 82.00 mm[Hg] - Sitting 142.00 mm[Hg] - Sitting 97.10 Tympanic 18.00 breaths/min 812 86782 9 76.00 mm[Hg] - Sitting 136.00 mm[Hg] - Sitting 97.60 Tympanic 18.00 breaths/min 812 31348 8 86.00 mm[Hg] - Sitting 148.00 mm[Hg] - Sitting 97.20 Tympanic 99.00 % 76.00 /min 18.00 breaths/min 812 89482 7 237.80 NI 812 15338 9 82.00 mm[Hg] - Sitting 145.00 mm[Hg] - Sitting 97.20 Tympanic 95.00 % 69.00 /min 18.00 breaths/min 813 39107 0 69.00 mm[Hg] - Sitting 129.00 mm[Hg] - Sitting 98.90 Tympanic 96.00 % 64.00 /min 16.00 breaths/min 814 84209 0 78.00 mm[Hg] - Sitting 138.00 mm[Hg] - Sitting 97.30 Tympanic 98.00 % 78.00 /min 17.00 breaths/min 814 96225 8 85.00 mm[Hg] - Sitting 166.00 mm[Hg] - Sitting 98.70 Tympanic 95.00 % 78.00 /min 20.00 breaths/min 814 71105 0 64.00 mm[Hg] - Sitting 118.00 mm[Hg] - Sitting 97.40 Tympanic 97.00 % 77.00 /min 18.00 breaths/min 815 59623 3 62.00 mm[Hg] - Sitting 127.00 mm[Hg] - Sitting 97.90 Forehead Scan 96.00 % 66.00 /min 16.00 breaths/min 816 15811 3 76.00 mm[Hg] - Sitting 138.00 mm[Hg] - Sitting 97.10 Tympanic 98.00 % 75.00 /min 18.00 breaths/min 816 49698 5 74.00 mm[Hg] - Sitting 131.00 mm[Hg] - Sitting 97.60 Tympanic 98.00 % 79.00 /min 18.00 breaths/min 817 44772 3 89.00 mm[Hg] - Sitting 156.00 mm[Hg] - Sitting 99.10 Forehead Scan 95.00 % 69.00 /min 20.00 breaths/min 817 34576 7 78.00 mm[Hg] - Sitting 139.00 mm[Hg] - Sitting 99.10 Forehead Scan 93.00 % 63.00 /min 18.00 breaths/min 818 93555 4 74.00 mm[Hg] - Sitting 124.00 mm[Hg] - Sitting 99.60 Forehead Scan 97.00 % 94.00 /min 20.00 breaths/min 818 70698 7 79.00 mm[Hg] - Sitting 133.00 mm[Hg] - Sitting 96.70 Tympanic 96.00 % 60.00 /min 18.00 breaths/min 819 87425 4 71.00 mm[Hg] - Sitting 116.00 mm[Hg] - Sitting 97.50 Tympanic 94.00 % 79.00 /min 20.00 breaths/min 819 80401 0 81.00 mm[Hg] - Sitting 139.00 mm[Hg] - Sitting 98.60 Forehead Scan 95.00 % 67.00 /min 18.00 breaths/min 8120195 8 238.80 NI 819 68937 9 84.00 mm[Hg] - Sitting 154.00 mm[Hg] - Sitting 96.60 Tympanic 97.00 % 66.00 /min 18.00 breaths/min 820 72242 6 58.00 mm[Hg] - Sitting 142.00 mm[Hg] - Sitting 98.90 Tympanic 95.00 % 60.00 /min 16.00 breaths/min 54619 820 66294 2 69.00 mm[Hg] - Sitting 117.00 mm[Hg] - Sitting 97.60 Tympanic 99.00 % 64.00 /min 18.00 breaths/min 29126 821 45286 1 69.00 mm[Hg] - Sitting 138.00 mm[Hg] - Sitting 98.10 Tympanic 95.00 % 60.00 /min 18.00 breaths/min Immunizations Vaccine Date Status Influenza 05/07/2014 Completed Influenza 05/13/2015 Completed Influenza 05/06/2016 Completed Influenza 04/20/2017 Completed Influenza 04/27/2018 Completed (PCV13)Pneumococcal 07/25/2017 Completed (PPSV23)Pneumococcal 03/20/2009 Completed INSURANCE PROVIDERS Policy Number Group Number Description Effective Date End Date [id number] [employer] 07/10/2015 02/26/2019 [id number] [employer] 10/22/2013 07/09/2015
--- OUTSIDE RECORDS SUMMARY | 2023-03-09 21:15 | External Medical Summary | Continuity Of Care Document ---
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, unspecified 02/14/2019 Active VITAL SIGNS Date Time Diastolic blood pressure Systolic blood pressure Body height Body weight Temperature SpO2 Blood Sugar Pulse Respirations 801 88760 5 73.00 mm[Hg] - Sitting 134.00 mm[Hg] - Sitting 96.40 Tympanic 66.00 /min 18.00 breaths/min 801 07543 3 244.00 NI 808 70655 1 88.00 mm[Hg] - Sitting 154.00 mm[Hg] - Sitting 238.80 NI 99.30 Tympanic 96.00 % 88.00 /min 18.00 breaths/min 808 41721 1 73 NI 809 49011 8 81.00 mm[Hg] - Sitting 140.00 mm[Hg] - Sitting 98.60 Tympanic 96.00 % 84.00 /min 18.00 breaths/min 809 16890 2 80.00 mm[Hg] - Sitting 140.00 mm[Hg] - Sitting 98.70 Tympanic 82.00 /min 18.00 breaths/min 809 51477 9 80.00 mm[Hg] - Sitting 140.00 mm[Hg] - Sitting 98.70 Tympanic 82.00 /min 18.00 breaths/min 810 74828 5 76.00 mm[Hg] - Lying Down 134.00 mm[Hg] - Lying Down 98.30 Tympanic 97.00 % 80.00 /min 18.00 breaths/min 810 33803 6 81.00 mm[Hg] - Sitting 146.00 mm[Hg] - Sitting 97.70 Tympanic 59.00 /min 18.00 breaths/min 810 24167 0 90.00 mm[Hg] - Sitting 142.00 mm[Hg] - Sitting 810 38263 1 98.90 Forehead Scan 67.00 /min 18.00 breaths/min 810 92366 3 81.00 mm[Hg] - Sitting 146.00 mm[Hg] - Sitting 98.90 Tympanic 67.00 /min 18.00 breaths/min 810 95067 9 81.00 mm[Hg] - Sitting 146.00 mm[Hg] - Sitting 98.90 Tympanic 67.00 /min 18.00 breaths/min 811 55649 1 78.00 mm[Hg] - Lying Down 142.00 mm[Hg] - Lying Down 98.70 Forehead Scan 97.00 % 64.00 /min 16.00 breaths/min 65569 811 47135 0 77.00 mm[Hg] - Lying Down 138.00 mm[Hg] - Lying Down 99.10 Forehead Scan 93.00 % 64.00 /min 18.00 breaths/min 811 90011 9 70.00 mm[Hg] - Lying Down 117.00 mm[Hg] - Lying Down 97.10 Tympanic 58.00 /min 18.00 breaths/min 811 06415 2 82.00 mm[Hg] - Sitting 142.00 mm[Hg] - Sitting 97.10 Tympanic 93.00 % 62.00 /min 18.00 breaths/min 811 73208 4 82.00 mm[Hg] - Sitting 142.00 mm[Hg] - Sitting 97.10 Tympanic 62.00 /min 18.00 breaths/min 811 65616 8 82.00 mm[Hg] - Sitting 142.00 mm[Hg] - Sitting 97.10 Tympanic 18.00 breaths/min 812 55632 9 76.00 mm[Hg] - Sitting 136.00 mm[Hg] - Sitting 97.60 Tympanic 18.00 breaths/min 812 94493 8 86.00 mm[Hg] - Sitting 148.00 mm[Hg] - Sitting 97.20 Tympanic 99.00 % 76.00 /min 18.00 breaths/min 812 97951 7 237.80 NI 812 24140 9 82.00 mm[Hg] - Sitting 145.00 mm[Hg] - Sitting 97.20 Tympanic 95.00 % 69.00 /min 18.00 breaths/min 813 44174 0 69.00 mm[Hg] - Sitting 129.00 mm[Hg] - Sitting 98.90 Tympanic 96.00 % 64.00 /min 16.00 breaths/min 814 52742 0 78.00 mm[Hg] - Sitting 138.00 mm[Hg] - Sitting 97.30 Tympanic 98.00 % 78.00 /min 17.00 breaths/min 814 51497 8 85.00 mm[Hg] - Sitting 166.00 mm[Hg] - Sitting 98.70 Tympanic 95.00 % 78.00 /min 20.00 breaths/min 814 33791 0 64.00 mm[Hg] - Sitting 118.00 mm[Hg] - Sitting 97.40 Tympanic 97.00 % 77.00 /min 18.00 breaths/min 815 67851 3 62.00 mm[Hg] - Sitting 127.00 mm[Hg] - Sitting 97.90 Forehead Scan 96.00 % 66.00 /min 16.00 breaths/min 816 76543 3 76.00 mm[Hg] - Sitting 138.00 mm[Hg] - Sitting 97.10 Tympanic 98.00 % 75.00 /min 18.00 breaths/min 816 70944 5 74.00 mm[Hg] - Sitting 131.00 mm[Hg] - Sitting 97.60 Tympanic 98.00 % 79.00 /min 18.00 breaths/min 817 31701 3 89.00 mm[Hg] - Sitting 156.00 mm[Hg] - Sitting 99.10 Forehead Scan 95.00 % 69.00 /min 20.00 breaths/min 817 79628 7 78.00 mm[Hg] - Sitting 139.00 mm[Hg] - Sitting 99.10 Forehead Scan 93.00 % 63.00 /min 18.00 breaths/min 818 75499 4 74.00 mm[Hg] - Sitting 124.00 mm[Hg] - Sitting 99.60 Forehead Scan 97.00 % 94.00 /min 20.00 breaths/min 818 40161 7 79.00 mm[Hg] - Sitting 133.00 mm[Hg] - Sitting 96.70 Tympanic 96.00 % 60.00 /min 18.00 breaths/min 819 96448 4 71.00 mm[Hg] - Sitting 116.00 mm[Hg] - Sitting 97.50 Tympanic 94.00 % 79.00 /min 20.00 breaths/min 819 84257 0 81.00 mm[Hg] - Sitting 139.00 mm[Hg] - Sitting 98.60 Forehead Scan 95.00 % 67.00 /min 18.00 breaths/min 8120195 8 238.80 NI 819 57487 9 84.00 mm[Hg] - Sitting 154.00 mm[Hg] - Sitting 96.60 Tympanic 97.00 % 66.00 /min 18.00 breaths/min 820 69906 6 58.00 mm[Hg] - Sitting 142.00 mm[Hg] - Sitting 98.90 Tympanic 95.00 % 60.00 /min 16.00 breaths/min 13885 820 67309 2 69.00 mm[Hg] - Sitting 117.00 mm[Hg] - Sitting 97.60 Tympanic 99.00 % 64.00 /min 18.00 breaths/min 75513 821 09647 1 69.00 mm[Hg] - Sitting 138.00 mm[Hg] - Sitting 98.10 Tympanic 95.00 % 60.00 /min 18.00 breaths/min Immunizations Vaccine Date Status Influenza 05/07/2014 Completed Influenza 05/13/2015 Completed Influenza 05/06/2016 Completed Influenza 04/20/2017 Completed Influenza 04/27/2018 Completed (PCV13)Pneumococcal 07/25/2017 Completed (PPSV23)Pneumococcal 03/20/2009 Completed INSURANCE PROVIDERS Policy Number Group Number Description Effective Date End Date [id number] [employer] 07/10/2015 02/26/2019 [id number] [employer] 10/22/2013 07/09/2015
--- OUTSIDE RECORDS SUMMARY | 2023-03-09 21:16 | External Medical Summary | Continuity Of Care Document ---
Author Name Unknown Address [address] ELEN[place] Bianhci [address] Organization [facility] () Problems Code Description Start Date End Date Status G82.52 Quadriplegia, C1-C4 incomplete 04/28/2014 Active M62.81 Muscle weakness (generalized) 04/28/2014 Active 6826. CELLULITIS AND ABSCESS OF LEG EXCEPT FOOT 04/2803/11/2015 Completed Z87.440 Personal history of urinary (tract) infections 04/28/2014 Active I10. Essential (primary) hypertension 04/28/2014 Active E78.5 Hyperlipidemia, unspecified 04/28/2014 00 Active F32.9 Major depressive dis order, single episode, unspecified 04/28/2014 Active M62.838 Other muscle spasm 04/28/2014 Active F41.9 Anxiety disorder, unspecified 04/28/2014 Active K21.9 Gastro-esophageal re flux disease without esophagitis 04/28/2014 Active G47.00 Insomnia, unspecified 04/28/2014 Act jon Z86.718 Personal history of other venous thrombosis and embolism 04/28/2014 Active Z46.6 Encounter for fittin g and adjustment of urinary device 04/28/2014 Active V588.1 FITTING AND ADJUSTMENT OF VASCULAR CATHETER 03/12/2015 Completed Z79.01 MCFP (current) use of anticoagulants 04/28 Active Z86.14 Personal history of Methicillin resistant Staphylococcus aureus infection 03/12/2015 Active N20.1 Calculus of ureter 09/29/2014 Active N31.9 Neuromuscular dysfun ction of bladder, unspecified 10/01/2014 Active VITAL SIGNS Date Time Diastolic blood pressure Systolic blood pressure Body height Body weight 74237041 197527 96.00 mm[Hg] 172.00 mm[Hg] 70694791 457636 224.60 96027265 840389 99.00 mm[Hg] 151.00 mm[Hg] 54249439 826464 64.00 mm[Hg] 122.00 mm[Hg] 218 .40 66658191 856659 68.00 mm[Hg] 140.00 mm[Hg] 51146875 853882 83.00 mm[Hg] 145.00 mm[Hg] 230 .80 87215200 222585 228.50 21721610 602999 85.00 mm[Hg] 146.00 mm[Hg] 93873051 441576 228.40 40899246 857739 81.00 mm[Hg] 126.00 mm[Hg] 74020963 239596 55.00 mm[Hg] 108.00 mm[Hg] 22084913 697630 49.00 mm[Hg] 99.00 mm[Hg] 08716365 566695 58.00 mm[Hg] 113.00 mm[Hg] 74264577 558013 80.00 mm[Hg] 134.00 mm[Hg] 05112454 267864 72.00 mm[Hg] 137.00 mm[Hg] 85829974 968945 70.00 mm[Hg] 130.00 mm[Hg] 33622895 274753 87.00 mm[Hg] 141.00 mm[Hg] 09367917 150812 74.00 mm[Hg] 142.00 mm[Hg] 69949027 442508 62.00 mm[Hg] 112.00 mm[Hg] 76778028 274709 71.00 mm[Hg] 125.00 mm[Hg] 83564007 798165 70.00 mm[Hg] 126.00 mm[Hg] 15226365 847267 77.00 mm[Hg] 124.00 mm[Hg] 20140401 270068 78.00 mm[Hg] 132.00 mm[Hg] 20140402 349887 56.00 mm[Hg] 96.00 mm[Hg] 20140402 445726 52.00 mm[Hg] 98.00 mm[Hg] 20140402 972782 75.00 mm[Hg] 125.00 mm[Hg] 83611829 069193 71.00 mm[Hg] 119.00 mm[Hg] 81646244 165813 66.00 mm[Hg] 134.00 mm[Hg] 47580785 019780 232.60 85739920 165158 73 47613708 065571 76.00 mm[Hg] 138.00 mm[Hg] 58431327 874508 62.00 mm[Hg] 89.00 mm[Hg] 36423821 613376 79.00 mm[Hg] 123.00 mm[Hg] 44608768 298013 86.00 mm[Hg] 156.00 mm[Hg] 07424314 858828 57.00 mm[Hg] 102.00 mm[Hg] 58588636 290663 55.00 mm[Hg] 101.00 mm[Hg] 97490636 826018 58.00 mm[Hg] 100.00 mm[Hg] 57707494 742294 62.00 mm[Hg] 95.00 mm[Hg] 17044733 539869 54.00 mm[Hg] 139.00 mm[Hg] 08405046 628317 87.00 mm[Hg] 149.00 mm[Hg] 56268440 935435 224.00 02966182 874558 82.00 mm[Hg] 135.00 mm[Hg] 30317777 381364 56.00 mm[Hg] 91.00 mm[Hg] 98108272 435786 133.60 54525559 803917 235.40 41874032 519829 233.20 68271667 266371 237.20 97056296 977694 81.00 mm[Hg] 128.00 mm[Hg] 33899424 699599 76.00 mm[Hg] 126.00 mm[Hg] 32651597 749949 98.00 mm[Hg] 170.00 mm[Hg] 87870312 032985 244.20 58773676 915576 246.00 99498195 958588 244.20 80199805 674514 101.00 mm[Hg] 170.00 mm[Hg] 17373753 575808 248.60 59300478 262621 100.00 mm[Hg] 170.00 mm[Hg] 36921041 245318 102.00 mm[Hg] 215.00 mm[Hg] 20141002 202950 94.00 mm[Hg] 176.00 mm[Hg] 20141002 624951 94.00 mm[Hg] 159.00 mm[Hg] 20141002 747404 92.00 mm[Hg] 161.00 mm[Hg] 20141003 205861 69.00 mm[Hg] 129.00 mm[Hg] 20141003 908985 75.00 mm[Hg] 152.00 mm[Hg] 20141003 771865 86.00 mm[Hg] 139.00 mm[Hg] 20141004 338235 63.00 mm[Hg] 115.00 mm[Hg] 00637059 222469 87.00 mm[Hg] 148.00 mm[Hg] 70822351 707027 242.60 15188913 843502 58.00 mm[Hg] 110.00 mm[Hg] 73 20587965 983167 58.00 mm[Hg] 110.00 mm[Hg] 27277611 176011 56.00 mm[Hg] 114.00 mm[Hg] 20141023 578023 67.00 mm[Hg] 104.00 mm[Hg] 01625682 622681 83.00 mm[Hg] 148.00 mm[Hg] 84565199 938678 68.00 mm[Hg] 105.00 mm[Hg] 75036587 563411 90.00 mm[Hg] 165.00 mm[Hg] 16076049 926080 78.00 mm[Hg] 133.00 mm[Hg] 77786065 291547 80.00 mm[Hg] 122.00 mm[Hg] 85177957 292262 84.00 mm[Hg] 150.00 mm[Hg] 20141102 430489 90.00 mm[Hg] 185.00 mm[Hg] 73 20141102 136473 91.00 mm[Hg] 170.00 mm[Hg] 20141103 010172 91.00 mm[Hg] 170.00 mm[Hg] 20141103 815570 82.00 mm[Hg] 150.00 mm[Hg] 20141103 407348 85.00 mm[Hg] 156.00 mm[Hg] 20141104 810538 75.00 mm[Hg] 126.00 mm[Hg] 20141104 095499 93.00 mm[Hg] 169.00 mm[Hg] 02259552 952318 84.00 mm[Hg] 147.00 mm[Hg] 95642082 576339 95.00 mm[Hg] 187.00 mm[Hg] 12303427 516665 241.20 12418466 732972 88.00 mm[Hg] 156.00 mm[Hg] 38609458 885783 235.20 76671432 854409 237.20 91207438 898938 72.00 mm[Hg] 127.00 mm[Hg] 53052147 727237 237.00 58752685 526380 91.00 mm[Hg] 170.00 mm[Hg] 235 .00 81540872 908492 80.00 mm[Hg] 135.00 mm[Hg] 243 .80 48170843 312026 241.20 85009239 365494 70.00 mm[Hg] 125.00 mm[Hg] 25828395 893564 232.60 05028349 163744 240.00 69759765 552902 245.00 66766099 564353 90.00 mm[Hg] 156.00 mm[Hg] 73305205 336355 238.80 59374060 558467 84.00 mm[Hg] 144.00 mm[Hg] 242 .50 60204342 464569 240.00 74577871 575231 241.60 59155555 092481 80.00 mm[Hg] 139.00 mm[Hg] 67803930 284283 65.00 mm[Hg] 147.00 mm[Hg] 242 .00 56593890 178243 88.00 mm[Hg] 151.00 mm[Hg] 243 .00 01448385 244823 80.00 mm[Hg] 141.00 mm[Hg] 97717108 665665 243.00 31880937 635316 90.00 mm[Hg] 153.00 mm[Hg] 239 .40 06306465 923868 85.00 mm[Hg] 150.00 mm[Hg] 240 .00 65452940 294496 87.00 mm[Hg] 155.00 mm[Hg] 241 .00 85836563 997427 74.00 mm[Hg] 147.00 mm[Hg] 242 .00 62216743 381589 81.00 mm[Hg] 142.00 mm[Hg] 242 .00 26926013 208412 79.00 mm[Hg] 134.00 mm[Hg] 243 .00 85833302 089044 80.00 mm[Hg] 135.00 mm[Hg] 72887863 377215 245.00 80247032 960158 81.00 mm[Hg] 140.00 mm[Hg] 246 .00 30218041 567780 81.00 mm[Hg] 140.00 mm[Hg] 246 .00 10695096 036572 91.00 mm[Hg] 155.00 mm[Hg] 15482906 218281 75.00 mm[Hg] 110.00 mm[Hg] 245 .00 45938786 557377 76.00 mm[Hg] 134.00 mm[Hg] 246 .00 60480730 128628 78.00 mm[Hg] 134.00 mm[Hg] 244 .00 67098447 738607 245.00 99131587 154794 80.00 mm[Hg] 140.00 mm[Hg] 246 .00 20905495 645380 80.00 mm[Hg] 140.00 mm[Hg] 248 .00 81736188 616923 248.20 79932828 108038 78.00 mm[Hg] 126.00 mm[Hg] 38722544 062110 76.00 mm[Hg] 130.00 mm[Hg] 12306260 987430 245.00 20167683 834397 80.00 mm[Hg] 128.00 mm[Hg] 61306333 956009 80.00 mm[Hg] 128.00 mm[Hg] 58784249 380364 74.00 mm[Hg] 130.00 mm[Hg] 57349287 885048 195.20 45901953 184580 237.80 18402680 057885 71.00 mm[Hg] 107.00 mm[Hg] 232 .90 61666729 634625 233.00 65340904 391400 232.60 25908437 969102 85.00 mm[Hg] 134.00 mm[Hg] 82229551 870649 73.00 mm[Hg] 149.00 mm[Hg] 44593041 435768 239.40 71124562 710159 84.00 mm[Hg] 136.00 mm[Hg] 80713199 068574 238.60 93913003 196626 83.00 mm[Hg] 136.00 mm[Hg] 41692929 871406 238.60 15710496 899069 83.00 mm[Hg] 136.00 mm[Hg] 96612538 129767 83.00 mm[Hg] 136.00 mm[Hg] 03018976 595271 75.00 mm[Hg] 142.00 mm[Hg] 55968716 747727 63.00 mm[Hg] 122.00 mm[Hg] 06946082 608335 231.60 34796565 389939 231.60 31494848 654598 75.00 mm[Hg] 140.00 mm[Hg] IMMUNIZATIONS Vaccine Date Status Influenza 05/07/2014 Completed Influenza 05/13/2015 Completed Influenza 05/06/2016 Completed Influenza 04/20/2017 Completed (PCV13)Pneumococcal 07/25/2017 Completed (PPSV23)Pneumococcal 03/20/2009 Refused
--- OUTSIDE RECORDS SUMMARY | 2023-03-09 21:16 | External Medical Summary | Continuity Of Care Document ---
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 Active Z86.14 Personal history of Methicillin resistant Staphylococcus aureus infection 03/12/2015 Active N20.1 Calculus of ureter 09/29/2014 Active N31.9 Neuromuscular dysfun ction of bladder, unspecified 10/01/2014 Active VITAL SIGNS Date Time Diastolic blood pressure Systolic blood pressure Body height Body weight Temperature SpO2 Blood Sugar Pulse Respirations 30503 801 35639 5 73.00 mm[Hg] - Sitting 134.00 mm[Hg] - Sitting 96.40 Tympanic 66.00 /min 18.00 breaths/min 71968 801 22933 3 244.00 NI Immunizations Vaccine Date Status Influenza 05/07/2014 Completed Influenza 05/13/2015 Completed Influenza 05/06/2016 Completed Influenza 04/20/2017 Completed Influenza 04/27/2018 Completed (PCV13)Pneumococcal 07/25/2017 Completed (PPSV23)Pneumococcal 03/20/2009 Completed INSURANCE PROVIDERS Policy Number Group Number Description Effective Date End Date [id number] [employer] 07/10/2015 07/09/2016 [id number] [employer] 10/22/2013 07/09/2015
--- OUTSIDE RECORDS SUMMARY | 2023-03-09 21:16 | External Medical Summary | Continuity Of Care Document ---
Author Name Unknown Address [address] [place] Bianchi [address] Organization [facility] () Problems Code Description Start Date End [...] ADJUSTMENT OF VASCULAR CATHETER 03/12/2015 Completed Z79.01 residential (current) use of anticoagulants 04/28 Active Z86.14 Personal history of Methicillin resistant Staphylococcus aureus infection 03/12/2015 Active N20.1 Calculus of ureter 09/29/2014 Active N31.9 Neuromuscular dysfun ction of bladder, unspecified 10/01/2014 Active VITAL SIGNS Date Time Diastolic blood pressure Systolic blood pressure Body height Body weight Temperature SpO2 Blood Sugar Pulse Respirations 101 6 242.80 NI 101 19217 8 80.00 mm[Hg] - Sitting 144.00 mm[Hg] - Sitting 98.60 Tympanic 60.00 /min 18.00 breaths/min Immunizations Vaccine Date Status Influenza 05/07/2014 Completed Influenza 05/13/2015 Completed Influenza 05/06/2016 Completed Influenza 04/20/2017 Completed Influenza 04/27/2018 Completed (PCV13)Pneumococcal 07/25/2017 Completed (PPSV23)Pneumococcal 03/20/2009 Completed INSURANCE PROVIDERS Policy Number Group Number Description Effective Date End Date [id number] [employer] 07/10/2015 07/09/2016 [id number] [employer] 10/22/2013 07/09/2015
--- OUTSIDE RECORDS SUMMARY | 2023-03-09 21:16 | External Medical Summary | Continuity Of Care Document ---
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 Active Z86.14 Personal history of Methicillin resistant Staphylococcus aureus infection 03/12/2015 Active N20.1 Calculus of ureter 09/29/2014 Active N31.9 Neuromuscular dysfun ction of bladder, unspecified 10/01/2014 Active VITAL SIGNS Date Time Diastolic blood pressure Systolic blood pressure Body height Body weight Temperature SpO2 Blood Sugar Pulse Respirations 63268 801 87476 5 73.00 mm[Hg] - Sitting 134.00 mm[Hg] - Sitting 96.40 Tympanic 66.00 /min 18.00 breaths/min 20865 801 43375 3 244.00 NI Immunizations Vaccine Date Status Influenza 05/07/2014 Completed Influenza 05/13/2015 Completed Influenza 05/06/2016 Completed Influenza 04/20/2017 Completed Influenza 04/27/2018 Completed (PCV13)Pneumococcal 07/25/2017 Completed (PPSV23)Pneumococcal 03/20/2009 Completed INSURANCE PROVIDERS Policy Number Group Number Description Effective Date End Date [id number] [employer] 07/10/2015 07/09/2016 [id number] [employer] 10/22/2013 07/09/2015
--- OUTSIDE RECORDS SUMMARY | 2023-03-09 21:16 | External Medical Summary | Continuity Of Care Document ---
Author Name Unknown Address [address] [place] Bian[place] [address] Organization [facility] () Problems Code Description Start Date [...] ADJUSTMENT OF VASCULAR CATHETER 03/12/2015 Completed Z79.01 USP (current) use of anticoagulants 04/28 Active Z86.14 Personal history of Methicillin resistant Staphylococcus aureus infection 03/12/2015 Active N20.1 Calculus of ureter 09/29/2014 Active N31.9 Neuromuscular dysfun ction of bladder, unspecified 10/01/2014 Active VITAL SIGNS Date Time Diastolic blood pressure Systolic blood pressure Body height Body weight Temperature SpO2 Blood Sugar Pulse Respirations 101 6 242.80 NI 101 14819 8 80.00 mm[Hg] - Sitting 144.00 mm[Hg] - Sitting 98.60 Tympanic 60.00 /min 18.00 breaths/min Immunizations Vaccine Date Status Influenza 05/07/2014 Completed Influenza 05/13/2015 Completed Influenza 05/06/2016 Completed Influenza 04/20/2017 Completed Influenza 04/27/2018 Completed (PCV13)Pneumococcal 07/25/2017 Completed (PPSV23)Pneumococcal 03/20/2009 Completed INSURANCE PROVIDERS Policy Number Group Number Description Effective Date End Date [id number] [employer] 07/10/2015 07/09/2016 [id number] [employer] 10/22/2013 07/09/2015
--- OUTSIDE RECORDS SUMMARY | 2023-03-09 21:16 | External Medical Summary | Continuity Of Care Document ---
Author Name Unknown Address [address] ELEN[place] Bianchi [address] [facility] () VITAL SIGNS Date Time Diastolic blood pressure Systolic blood pressure Body height Body weight Temperature SpO2 Blood Sugar Pulse Respirations 801 18603 5 73.00 mm[Hg] - Sitting 134.00 mm[Hg] - Sitting 96.40 Tympanic 66.00 /min 18.00 breaths/min 17937 801 56568 3 244.00 [place] [address] 808 38361 1 88.00 mm[Hg] - Sitting 154.00 mm[Hg] - Sitting 238.80 NI 99.30 Tympanic 96.00 % 88.00 /min 18.00 breaths/min 78631 808 71161 1 73 NI Immunizations Vaccine Date Status Influenza 05/07/2014 Completed Influenza 05/13/2015 Completed Influenza 05/06/2016 Completed Influenza 04/20/2017 Completed Influenza 04/27/2018 Completed (PCV13)Pneumococcal 07/25/2017 Completed (PPSV23)Pneumococcal 03/20/2009 Completed INSURANCE PROVIDERS Policy Number Group Number Description Effective Date End Date [id number] [employer] 07/10/2015 [id number] [employer] 10/22/2013 07/09/2015
--- OUTSIDE RECORDS SUMMARY | 2023-03-09 21:16 | External Medical Summary | Continuity Of Care Document ---
Author Name Unknown Address [address] ELEN[place] Bianchi [address] [facility] () VITAL SIGNS Date Time Diastolic blood pressure Systolic blood pressure Body height Body weight Temperature SpO2 Blood Sugar Pulse Respirations 801 71119 5 73.00 mm[Hg] - Sitting 134.00 mm[Hg] - Sitting 96.40 Tympanic 66.00 /min 18.00 breaths/min 04133 801 12263 3 244.00 NI [address] 808 68749 1 88.00 mm[Hg] - Sitting 154.00 mm[Hg] - Sitting 238.80 NI 99.30 Tympanic 96.00 % 88.00 /min 18.00 breaths/min 14839 808 09378 1 73 NI Immunizations Vaccine Date Status Influenza 05/07/2014 Completed Influenza 05/13/2015 Completed Influenza 05/06/2016 Completed Influenza 04/20/2017 Completed Influenza 04/27/2018 Completed (PCV13)Pneumococcal 07/25/2017 Completed (PPSV23)Pneumococcal 03/20/2009 Completed INSURANCE PROVIDERS Policy Number Group Number Description Effective Date End Date [id number] [employer] 07/10/2015 [id number] [employer] 10/22/2013 07/09/2015
--- OUTSIDE RECORDS SUMMARY | 2023-03-09 21:16 | External Medical Summary | Continuity Of Care Document ---
Author Name Unknown Address [address] ELENITA Bianchi [address] [facility] () VITAL SIGNS Date Time Diastolic blood pressure Systolic blood pressure Body height Body weight Temperature SpO2 Blood Sugar Pulse Respirations 801 16212 5 73.00 mm[Hg] - Sitting 134.00 mm[Hg] - Sitting 96.40 Tympanic 66.00 /min 18.00 breaths/min 06517 801 28889 3 244.00 NI [address] 808 25892 1 88.00 mm[Hg] - Sitting 154.00 mm[Hg] - Sitting 238.80 NI 99.30 Tympanic 96.00 % 88.00 /min 18.00 breaths/min 20665 808 14538 1 73 NI Immunizations Vaccine Date Status Influenza 05/07/2014 Completed Influenza 05/13/2015 Completed Influenza 05/06/2016 Completed Influenza 04/20/2017 Completed Influenza 04/27/2018 Completed (PCV13)Pneumococcal 07/25/2017 Completed (PPSV23)Pneumococcal 03/20/2009 Completed INSURANCE PROVIDERS Policy Number Group Number Description Effective Date End Date [id number] [employer] 07/10/2015 [id number] [employer] 10/22/2013 07/09/2015
--- OUTSIDE RECORDS SUMMARY | 2023-03-09 21:16 | External Medical Summary | Continuity Of Care Document ---
Author Name Unknown Address [address] [place] [address] Organization [facility] () Problems Code Description Start Date End [...] adjustment of urinary device 02/14/2019 Active Z79.01 irrigator (current) use of anticoagulants 02/14 Active N31.9 Neuromuscular dysfun ction of bladder, unspecified 02/14/2019 Active VITAL SIGNS Date Time Diastolic blood pressure Systolic blood pressure Body height Body weight Temperature SpO2 Blood Sugar Pulse Respirations 801 10983 5 73.00 mm[Hg] - Sitting 134.00 mm[Hg] - Sitting 96.40 Tympanic 66.00 /min 18.00 breaths/min 801 35179 3 244.00 NI 808 20315 1 88.00 mm[Hg] - Sitting 154.00 mm[Hg] - Sitting 238.80 NI 99.30 Tympanic 96.00 % 88.00 /min 18.00 breaths/min 808 28518 1 73 NI 809 28992 8 81.00 mm[Hg] - Sitting 140.00 mm[Hg] - Sitting 98.60 Tympanic 96.00 % 84.00 /min 18.00 breaths/min 809 13719 2 80.00 mm[Hg] - Sitting 140.00 mm[Hg] - Sitting 98.70 Tympanic 82.00 /min 18.00 breaths/min Immunizations Vaccine Date Status Influenza 05/07/2014 Completed Influenza 05/13/2015 Completed Influenza 05/06/2016 Completed Influenza 04/20/2017 Completed Influenza 04/27/2018 Completed (PCV13)Pneumococcal 07/25/2017 Completed (PPSV23)Pneumococcal 03/20/2009 Completed INSURANCE PROVIDERS Policy Number Group Number Description Effective Date End Date [id number] [employer] 07/10/2015 [id number] [employer] 10/22/2013 07/09/2015
--- OUTSIDE RECORDS SUMMARY | 2023-03-09 21:16 | External Medical Summary | Continuity Of Care Document ---
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50 05573615 820181 85.00 mm[Hg] 146.00 mm[Hg] 34685229 590426 228.40 48842993 338577 81.00 mm[Hg] 126.00 mm[Hg] 91979866 031930 55.00 mm[Hg] 108.00 mm[Hg] 41238554 650154 49.00 mm[Hg] 99.00 mm[Hg] 96685947 816773 58.00 mm[Hg] 113.00 mm[Hg] 63913668 147539 80.00 mm[Hg] 134.00 mm[Hg] 58859442 631503 72.00 mm[Hg] 137.00 mm[Hg] 10378593 303893 70.00 mm[Hg] 130.00 mm[Hg] 70348799 161823 87.00 mm[Hg] 141.00 mm[Hg] 24020258 060798 74.00 mm[Hg] 142.00 mm[Hg] 12395550 260442 62.00 mm[Hg] 112.00 mm[Hg] 69824642 127910 71.00 mm[Hg] 125.00 mm[Hg] 91205640 015410 70.00 mm[Hg] 126.00 mm[Hg] 98177677 394517 77.00 mm[Hg] 124.00 mm[Hg] 20140401 082176 78.00 mm[Hg] 132.00 mm[Hg] 20140402 829657 56.00 mm[Hg] 96.00 mm[Hg] 20140402 020953 52.00 mm[Hg] 98.00 mm[Hg] 20140402 516578 75.00 mm[Hg] 125.00 mm[Hg] 82568663 886323 71.00 mm[Hg] 119.00 mm[Hg] 85657580 888042 66.00 mm[Hg] 134.00 mm[Hg] 11835810 227811 232.60 54035397 216087 73 59841591 214224 76.00 mm[Hg] 138.00 mm[Hg] 85437225 815568 62.00 mm[Hg] 89.00 mm[Hg] 75874738 985189 79.00 mm[Hg] 123.00 mm[Hg] 68125739 651066 86.00 mm[Hg] 156.00 mm[Hg] 86764651 231456 57.00 mm[Hg] 102.00 mm[Hg] 84634453 760233 55.00 mm[Hg] 101.00 mm[Hg] 51695866 498979 58.00 mm[Hg] 100.00 mm[Hg] 92818696 238205 62.00 mm[Hg] 95.00 mm[Hg] 89563493 650031 54.00 mm[Hg] 139.00 mm[Hg] 05611773 254832 87.00 mm[Hg] 149.00 mm[Hg] 95529188 539977 224.00 09892645 100580 82.00 mm[Hg] 135.00 mm[Hg] 09455405 102420 56.00 mm[Hg] 91.00 mm[Hg] 31886159 026379 133.60 77423853 135229 235.40 30908567 280777 233.20 03291391 956728 237.20 03761286 018961 81.00 mm[Hg] 128.00 mm[Hg] 21116969 149690 76.00 mm[Hg] 126.00 mm[Hg] 68077556 111917 98.00 mm[Hg] 170.00 mm[Hg] 14559479 416575 244.20 98412406 193040 246.00 92320360 888977 244.20 92844628 577274 101.00 mm[Hg] 170.00 mm[Hg] 86586745 605917 248.60 62501210 506481 100.00 mm[Hg] 170.00 mm[Hg] 28224132 629447 102.00 mm[Hg] 215.00 mm[Hg] 20141002 707671 94.00 mm[Hg] 176.00 mm[Hg] 20141002 120559 94.00 mm[Hg] 159.00 mm[Hg] 20141002 966630 92.00 mm[Hg] 161.00 mm[Hg] 20141003 740926 69.00 mm[Hg] 129.00 mm[Hg] 20141003 679403 75.00 mm[Hg] 152.00 mm[Hg] 20141003 393813 86.00 mm[Hg] 139.00 mm[Hg] 20141004 447386 63.00 mm[Hg] 115.00 mm[Hg] 68793614 110550 87.00 mm[Hg] 148.00 mm[Hg] 22787315 817879 242.60 02908339 020060 58.00 mm[Hg] 110.00 mm[Hg] 73 43896211 055546 58.00 mm[Hg] 110.00 mm[Hg] 55431964 196479 56.00 mm[Hg] 114.00 mm[Hg] 20141023 238414 67.00 mm[Hg] 104.00 mm[Hg] 48847912 770868 83.00 mm[Hg] 148.00 mm[Hg] 96832633 136416 68.00 mm[Hg] 105.00 mm[Hg] 52993367 408144 90.00 mm[Hg] 165.00 mm[Hg] 26826439 155013 78.00 mm[Hg] 133.00 mm[Hg] 82524118 022115 80.00 mm[Hg] 122.00 mm[Hg] 90134087 885865 84.00 mm[Hg] 150.00 mm[Hg] 20141102 311431 90.00 mm[Hg] 185.00 mm[Hg] 73 20141102 386252 91.00 mm[Hg] 170.00 mm[Hg] 20141103 122499 91.00 mm[Hg] 170.00 mm[Hg] 20141103 188084 82.00 mm[Hg] 150.00 mm[Hg] 20141103 498091 85.00 mm[Hg] 156.00 mm[Hg] 20141104 702450 75.00 mm[Hg] 126.00 mm[Hg] 20141104 910430 93.00 mm[Hg] 169.00 mm[Hg] 61973237 691071 84.00 mm[Hg] 147.00 mm[Hg] 25105367 225797 95.00 mm[Hg] 187.00 mm[Hg] 03464303 483604 241.20 74735798 987115 88.00 mm[Hg] 156.00 mm[Hg] 07704950 621726 235.20 75606342 407080 237.20 41715279 976289 72.00 mm[Hg] 127.00 mm[Hg] 03090419 315846 237.00 76863191 158398 91.00 mm[Hg] 170.00 mm[Hg] 235 .00 86623553 197465 80.00 mm[Hg] 135.00 mm[Hg] 243 .80 30075056 094288 241.20 35312803 924615 70.00 mm[Hg] 125.00 mm[Hg] 32979929 013425 232.60 60172488 027223 240.00 23582103 634845 245.00 41507386 814986 90.00 mm[Hg] 156.00 mm[Hg] 56627280 671197 238.80 56247290 057263 84.00 mm[Hg] 144.00 mm[Hg] 242 .50 18983264 872504 240.00 78854497 376340 241.60 72464458 407490 80.00 mm[Hg] 139.00 mm[Hg] 09844732 350821 65.00 mm[Hg] 147.00 mm[Hg] 242 .00 98767381 536938 88.00 mm[Hg] 151.00 mm[Hg] 243 .00 88540402 651012 80.00 mm[Hg] 141.00 mm[Hg] 19631372 597827 243.00 04464382 197666 90.00 mm[Hg] 153.00 mm[Hg] 239 .40 76085363 112013 85.00 mm[Hg] 150.00 mm[Hg] 240 .00 22772921 880012 87.00 mm[Hg] 155.00 mm[Hg] 241 .00 49322465 948652 74.00 mm[Hg] 147.00 mm[Hg] 242 .00 34903877 514164 81.00 mm[Hg] 142.00 mm[Hg] 242 .00 60538236 925552 79.00 mm[Hg] 134.00 mm[Hg] 243 .00 31449250 892552 80.00 mm[Hg] 135.00 mm[Hg] 73896517 466225 245.00 93951022 513833 81.00 mm[Hg] 140.00 mm[Hg] 246 .00 92924263 646742 81.00 mm[Hg] 140.00 mm[Hg] 246 .00 76772645 648051 91.00 mm[Hg] 155.00 mm[Hg] 11644321 910850 75.00 mm[Hg] 110.00 mm[Hg] 245 .00 63764619 237731 76.00 mm[Hg] 134.00 mm[Hg] 246 .00 31629457 851807 78.00 mm[Hg] 134.00 mm[Hg] 244 .00 22927795 536139 245.00 92113720 945135 80.00 mm[Hg] 140.00 mm[Hg] 246 .00 88535331 416124 80.00 mm[Hg] 140.00 mm[Hg] 248 .00 20255838 092435 248.20 82613389 083682 78.00 mm[Hg] 126.00 mm[Hg] 50509454 905761 76.00 mm[Hg] 130.00 mm[Hg] 99591060 784372 245.00 78837967 842249 80.00 mm[Hg] 128.00 mm[Hg] 62539948 276639 80.00 mm[Hg] 128.00 mm[Hg] 13898696 057484 74.00 mm[Hg] 130.00 mm[Hg] 42968894 711201 195.20 33928798 397888 237.80 IMMUNIZATIONS Vaccine Date Status Influenza 05/07/2014 Completed Influenza 05/13/2015 Completed Influenza 05/06/2016 Completed (PPSV23)Pneumococcal 03/20/2009 Refused
--- OUTSIDE RECORDS SUMMARY | 2023-03-09 21:16 | External Medical Summary | Continuity Of Care Document ---
Author Name Unknown Address [address] ELENITA Bianchi [address] [facility] () VITAL SIGNS Date Time Diastolic blood pressure Systolic blood pressure Body height Body weight Temperature SpO2 Blood Sugar Pulse Respirations 801 05385 5 73.00 mm[Hg] - Sitting 134.00 mm[Hg] - Sitting 96.40 Tympanic 66.00 /min 18.00 breaths/min 29229 801 88229 3 244.00 [place] [address] 808 07387 1 88.00 mm[Hg] - Sitting 154.00 mm[Hg] - Sitting 238.80 NI 99.30 Tympanic 96.00 % 88.00 /min 18.00 breaths/min 07103 808 51666 1 73 [place] [address] 809 91968 8 81.00 mm[Hg] - Sitting 140.00 mm[Hg] - Sitting 98.60 Tympanic 96.00 % 84.00 /min 18.00 breaths/min 50484 809 53674 2 80.00 mm[Hg] - Sitting 140.00 mm[Hg] - Sitting 98.70 Tympanic 82.00 /min 18.00 breaths/min Immunizations Vaccine Date Status Influenza 05/07/2014 Completed Influenza 05/13/2015 Completed Influenza 05/06/2016 Completed Influenza 04/20/2017 Completed Influenza 04/27/2018 Completed (PCV13)Pneumococcal 07/25/2017 Completed (PPSV23)Pneumococcal 03/20/2009 Completed INSURANCE PROVIDERS Policy Number Group Number Description Effective Date End Date [id number] [employer] 07/10/2015 [id number] [employer] 10/22/2013 07/09/2015
--- OUTSIDE RECORDS SUMMARY | 2023-03-09 21:16 | External Medical Summary | Continuity Of Care Document ---
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, unspecified 10/01/2014 Active VITAL SIGNS Date Time Diastolic blood pressure Systolic blood pressure Body height Body weight Temperature SpO2 Blood Sugar Pulse Respirations 20929 801 63166 5 73.00 mm[Hg] - Sitting 134.00 mm[Hg] - Sitting 96.40 Tympanic 66.00 /min 18.00 breaths/min 31873 801 23698 3 244.00 NI Immunizations Vaccine Date Status Influenza 05/07/2014 Completed Influenza 05/13/2015 Completed Influenza 05/06/2016 Completed Influenza 04/20/2017 Completed Influenza 04/27/2018 Completed (PCV13)Pneumococcal 07/25/2017 Completed (PPSV23)Pneumococcal 03/20/2009 Completed INSURANCE PROVIDERS Policy Number Group Number Description Effective Date End Date [id number] [employer] 07/10/2015 07/09/2016 [id number] [employer] 10/22/2013 07/09/2015
--- OUTSIDE RECORDS SUMMARY | 2023-03-09 21:16 | External Medical Summary | Continuity Of Care Document ---
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, unspecified 10/01/2014 Active VITAL SIGNS Date Time Diastolic blood pressure Systolic blood pressure Body height Body weight Temperature SpO2 Blood Sugar Pulse Respirations 801 32607 5 73.00 mm[Hg] - Sitting 134.00 mm[Hg] - Sitting 96.40 Tympanic 66.00 /min 18.00 breaths/min 94411 801 21803 3 244.00 [place] [address] 808 26968 1 88.00 mm[Hg] - Sitting 154.00 mm[Hg] - Sitting 238.80 NI 99.30 Tympanic 96.00 % 88.00 /min 18.00 breaths/min 51842 808 94004 1 73 NI Immunizations Vaccine Date Status Influenza 05/07/2014 Completed Influenza 05/13/2015 Completed Influenza 05/06/2016 Completed Influenza 04/20/2017 Completed Influenza 04/27/2018 Completed (PCV13)Pneumococcal 07/25/2017 Completed (PPSV23)Pneumococcal 03/20/2009 Completed INSURANCE PROVIDERS Policy Number Group Number Description Effective Date End Date [id number] [employer] 07/10/2015 [id number] [employer] 10/22/2013 07/09/2015
--- OUTSIDE RECORDS SUMMARY | 2023-03-09 21:16 | External Medical Summary | Continuity Of Care Document ---
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
== END 2023-03-08 13:30 ==
LOC: 3E 10:34 → ASU 10:34
DX: Z87.440 Personal history of urinary (tract) infections; Z93.6 Other artificial openings of urinary tract status; Z86.14 Personal history of Methicillin resistant Staphylococcus aureus infection; Z79.82 Long term (current) use of aspirin; Z79.899 Other long term (current) drug therapy; I10 Essential (primary) hypertension; G82.50 Quadriplegia, unspecified; Z88.6 Allergy status to analgesic agent; N31.9 Neuromuscular dysfunction of bladder, unspecified; N20.0 Calculus of kidney; Z20.822 Contact with and (suspected) exposure to COVID-19; Z88.8 Allergy status to other drugs, medicaments and biological substances; Z99.3 Dependence on wheelchair; Z86.718 Personal history of other venous thrombosis and embolism

== ENCOUNTER 2024-06-21 11:09 | Observation (INO) ==
--- NOTE | 2024-06-21 11:25 | Emergency Department Note ---
Impression & Plan Quadriplegia, Neurogenic bladder, Acute confusion, Acute hypotension, Chronic indwelling Evans catheter ED Provider Note NAME: JUAN FRANCES AGE: 74 SEX: M : 1950 ARRIVES VIA: Walk-In INFORMANT: Patient, ED PROVIDER(S): Philip Garcia MD CHIEF COMPLAINT: Confusion, hypotension, outpatient referral MEDICAL DECISION MAKING: Patient presents due to concern for confusion and hypotension. IV was established and blood work was obtained. Patient was ordered IV fluids empiric antibiotics to cover for Pseudomonas which has been in the urine culture in the past. Patient treated with IV cefepime. Patient with a normal white count H&H and platelet count. Kidney function with creatinine 1.5. Pro-Ricardo not elevated. Urinalysis was positive. Pending nasal MRSA screen. Chest x-ray negative. I did speak with the on-call urology service Teena Rose with Dr. Velasquez and they were comfortable with current plan of care. It is mechanical hospital service Dr. Davis and Elena Bartholomew PA-C and the patient was admitted to the medicine service. Additional IV fluids were ordered as when I went in the room while resting was hypotensive 90s/50s but per nursing the patient did have an improvement in his blood pressure when awake and stimulated, which upon subsequent reassessment did improve. Did inform the patient and the patient's of the findings and recommendations. Discussion w/ other healthcare providers: Teena Rose PA-C and Dr. Velasquez urology Elean Bartholomew and Dr. Davis inpatient medicine service Prior /Outside records reviewed: None Differential diagnosis: Infection, dehydration, metabolic abnormality, hypo/hyperglycemia, electrolyte imbalance, anemia, UTI, pneumonia, thyroid dysfunction among others were considered. Diagnostics, as interpreted by me: ECG: None Cardiac monitoring: An order was placed for continuous cardiac monitoring. The monitor shows a rate of 67 with sinus rhythm. Patient was placed on pulse oximetry Medical decision rules: None Imaging studies: I informally interpreted the patient's chest x-ray does not show obvious pneumonia or pneumothorax with formal report to follow. HPI: Patient presents due to concern for possible infection. The patient reportedly was at the outpatient same-day surgery center and was to have some sort of stone extraction possible procedure completed with Dr. Barclay. The patient reportedly was confused and did have lower preload pressure and thus was referred here for further evaluation treatment. Patient does have a prior history of incomplete quadriplegia does have decreased sensation from the shoulders down but can feel. Patient suffered a neck injury while hunting elk in the [facility] back in 2010. No reported fevers or chills. Patient does reside at a care facility but is accompanied by his today. Patient does have a neurogenic bladder. Patient does have a Evans catheter in place. Patient denies any vomiting or diarrhea. PAST MEDICAL HISTORY: See Below PAST SURGICAL HISTORY: See Below SOCIAL HISTORY: See Below HOME MEDICATIONS: See Below ALLERGIES: See Below VITALS: See Below PHYSICAL EXAMINATION: GENERAL: NAD, non-toxic. Wearing glasses. EYE EXAM: Normal conjunctiva. PERRL, no anisocoria and EOM's grossly intact w/o pain. OROPHARYNX: Moist mucus membranes, grossly normal dentition. NECK: Trachea midline, no stridor. Supple, no nuchal rigidity, no adenopathy, non-tender. No signs of meningismus. FROM of the neck with good chin to chest and neck extension. LUNGS: Clear to auscultation. Normal chest wall mechanics. HEART: NSR, no MRG. ABDOMEN: Abdomen soft, non-tender, no masses, no rebound or guarding. BACK: No CVA TTP. SKIN: No rashes and no bruising. UPPER EXTREMITIES: Upper extremities are grossly normal. LOWER EXTREMITIES: Grossly normal, no edema. NEURO EXAM: A&O x3, cranial nerves II-XII grossly intact, normal speech, does not move lower extremities weakly moves upper extremities. Past Med/Surg History Problem List Calculus of ureter Acute kidney injury Urinary tract infection Chronic indwelling Evans catheter (Acute) Acute hypotension (Acute) Acute confusion (Acute) Neurogenic bladder (Acute) Occlusion of ureteral stent (Acute) Hydronephrosis with renal and ureteral calculous obstruction (Acute) Hematuria Displacement of nephrostomy tube (Acute) removed in ER @ [facility] 03/19/23 Nephrolithiasis Muscle spasms of both lower extremities Vitamin deficiency Spermatocele History of DVT (deep vein thrombosis) Hyperlipidemia Neurogenic bladder Anticoagulated (Acute) HTN (hypertension) (Acute) Encounter for pre-operative examination Quadriplegia "Partial"/Incomplete quadriplegia (C4 lesion) s/p 2010 trauma Medical History Gross hematuria Unspecified fracture of shaft of right tibia, subsequent encounter for closed fracture with routine healing Hypertensive heart disease without heart failure Personal history of urinary (tract) infections Weakness Quadriplegia, C1-C4 incomplete Sepsis, unspecified organism Personal history of other venous thrombosis and embolism Insomnia Other muscle spasm Hyperlipidemia Urine retention MRSA (methicillin resistant staph aureus) culture positive blood and urine cultures 02/2023 hospitalization prison resident resident of [facility] Depression Anxiety GERD (gastroesophageal reflux disease) Neurogenic bladder History of COVID-19 12/2021- no symptoms, resolved Recurrent UTI (urinary tract infection) Suprapubic catheter Situational depression Chronic pain Generalized/diffuse Central cord syndrome Spinal cord injury C4/5 Partial paralysis below shoulders Deep vein thrombosis LLE (after trauma/thrown off horse 2010), IVC placed Hypertension Surgical History S/P cystoscopy with ureteral stent placement w/laser destruction kidney stone; multiple History of urologic surgery left spermatocelectomy placement suprapubic catheter History of orthopedic surgery H/O hemorrhoidectomy Hx of surgical procedure Spermatocelectomy, left (08/05/19): LMA#5 at [facility]. No issues noted per post-op anesthesia progress note. History of lithotripsy History of cystoscopy cysto, laser, stent (05/02/23): LMA#5 at [facility] History of colonoscopy History of tooth extraction History of arthroscopy left knee Previous back surgery fusion C4/C5 Family History Mother Family hx colonic polyps Social History Smoking Status: Never smoker Second Hand Exposure: No; Do You Dip or Chew Tobacco: No; Hx Alcohol Use: Yes Alcohol type: hard liquor Hx Substance Use: No Preferred Language: [place] Islander Communication Ability: Effective Visual Impairment: No Limitations Denture Contour Wire Specialist Required: No Beliefs That Will Affect Care: None Current Living Situation: Senior Living Current Living Situation Comment: Laura Smith Feels Safe at Home: Yes Assistive Devices: Scooter/Electric Scooter Allergies Allergies Allergy/AdvReac Type Severity Reaction Status Date / Time ciprofloxacin [Cipro] Allergy Intermediate rash Verified 06/18/24 12:07 diazepam Allergy Intermediate rash Verified 06/18/24 12:07 gentamicin Allergy Intermediate rash Verified 06/18/24 12:07 ibuprofen Allergy Intermediate rash Verified 06/18/24 12:07 NSAIDS (Non-Steroidal Allergy Intermediate rash Verified 06/18/24 12:07 Anti-Inflamma Quinolones Allergy Intermediate rash Verified 06/18/24 12:07 Aminoglycosides Allergy Unknown unknown Verified 06/18/24 12:07 Home Meds Home Medications Medication Instructions Recorded Confirmed amlodipine 5 mg tablet (Norvasc) 5 mg PO DAILY HTN 03/22/19 06/21/24 baclofen 20 mg tablet 20 mg PO QID MUSCLE SPASMS 03/22/19 06/21/24 bisacodyl 10 mg rectal suppository 10 mg WI DAILY PRN CONSTIPATION 03/22/19 06/21/24 furosemide 20 mg tablet 30 mg PO DAILY CHF 03/22/19 06/21/24 gabapentin 300 mg capsule 300 mg PO TID NEUROPATHY 03/22/19 06/21/24 loratadine 10 mg tablet 10 mg PO QAM ALLRGIES 03/22/19 06/21/24 paroxetine HCl 30 mg tablet (Paxil) 30 mg PO QAM ANXIETY 03/22/19 06/21/24 calcium citrate 1,000 mg PO DAILY 05/10/22 06/21/24 cholecalciferol (vitamin D3) 50 50 mcg PO QAM 04/24/23 06/21/24 mcg (2,000 unit) capsule (Vitamin D3) selenium sulfide 2.5 % lotion 1 applic topical UD PRN dandruff 04/24/23 06/21/24 acetaminophen 325 mg tablet 650 mg PO Q4H PRN PAIN/FEVER 08/17/23 06/21/24 (Tylenol) melatonin 3 mg tablet 3 mg PO HS PRN Sleep 08/17/23 06/21/24 tizanidine 2 mg tablet 2 mg PO QAM 08/17/23 06/21/24 tramadol 50 mg tablet 50 mg PO Q4H PRN Pain 08/17/23 06/21/24 ketoconazole 2 % shampoo 1 ea topical UD 10/03/23 06/21/24 polyethylene glycol 3350 17 17 g PO DAILY 10/03/23 06/21/24 gram/dose oral powder (Miralax) tamsulosin 0.4 mg capsule 0.4 mg PO HS 10/03/23 06/21/24 tizanidine 4 mg tablet 4 mg PO HS 10/03/23 06/21/24 Thera Silicone Skin Guard 1 applic topical BID prevention 06/18/24 06/21/24 chlorthalidone 25 mg tablet 12.5 mg PO DAILY 06/18/24 06/21/24 hydrocortisone-pramoxine 1 %-1 % 1 applic topical QID PRN Pain 06/18/24 06/21/24 topical cream lisinopril 40 mg tablet 0 mg PO QAM 06/18/24 06/21/24 calcium carbonate (Tums E-X) 300 mg PO TID PRN Indigestion 06/21/24 06/21/24 camphor 4.7 %-eucalyptus oil 1.2 1 applic topical TID PRN Congestion 06/21/24 06/21/24 %-menthol 2.6 % topical ointment (Vicks Vaporub) magnesium hydroxide 400 mg/5 mL 2,400 mg PO DAILY PRN Constipation 06/21/24 06/21/24 oral suspension (Milk of Magnesia) sodium chloride 0.65 % nasal spray 2 spray intranasal QID PRN DRYNESS 06/21/24 06/21/24 aerosol (Saline Mist) sodium phosphates 19 gram-7 118 ml WI DAILY PRN Constipation 06/21/24 06/21/24 gram/118 mL enema (Fleet Enema) Previous Rx's Medication Instructions Recorded solifenacin 10 mg tablet (Vesicare) 10 mg PO DAILY #30 tabs 06/12/24 cefpodoxime 200 mg tablet 200 mg PO BID 10 days #20 tabs 06/24/24 Results & Data (ED) Vital Signs Vital Signs - 24 hr 06/21/24 11:13 Temperature 36.3 C L Temperature Source Skin Pulse Rate 75 Respiratory Rate 16 Respiratory Effort / Characteristics Non-Labored Spontaneous Respiratory Depth Normal Respiratory Pattern Regular Blood Pressure 106/67 Blood Pressure Mean 80 Pulse Oximetry 92 Oxygen Delivery Method Room Air Sepsis Recent Fever Within 48 Hours No Sepsis New/Unexplained Change in Mental Status Yes Sepsis Action Taken by Nursing No Action Required Home Medications Current Medication List: was personally reviewed by me Laboratory Data Attestation: I reviewed the patient's lab results. 06/23/24 08:42 06/23/24 07:33 Lab Results 06/21/24 06/21/24 06/21/24 Range/Units 12:00 12:13 13:35 WBC 10.37 (4.8-10.8) K/ul RBC 5.33 (4.70-6.10) M/uL Hgb 15.8 (14.0-18.0) g/dl Hct 47.9 (42.0-52.0) % MCV 89.9 (80.0-100.0) fL MCH 29.6 (25.0-34.0) pg MCHC 33.0 (32.0-36.0) g/dL RDW Std Deviation 42.5 (36.4-46.3) fL RDW Coeff of Cesar 12.9 (11.5-14.5) % Plt Count 233 (130-400) K/uL MPV 10.7 (9.4-12.4) fL Immature Gran % (Auto) 0.4 % Neut % (Auto) 83.0 % Lymph % (Auto) 7.7 % Jefferson % (Auto) 7.4 % Eos % (Auto) 1.3 % Baso % (Auto) 0.2 % Neut # (Auto) 8.61 H (1.40-6.50) K/uL Lymph # (Auto) 0.80 L (1.20-3.40) K/uL Jefferson # (Auto) 0.77 H (0.11-0.59) K/uL Eos # (Auto) 0.13 (0.00-0.50) K/uL Baso # (Auto) 0.02 (0.00-0.20) K/uL Immature Gran # (Auto) 0.04 (0.01-0.20) K/uL Sodium 141 (136-145) mmol/L Potassium 3.3 L (3.5-5.1) mmol/L Chloride 98 (98-107) mmol/L Carbon Dioxide 37 H (21-32) mmol/L Anion Gap 6 (3-11) BUN 25 H (6-23) mg/dl Creatinine 1.56 H (0.6-1.4) mg/dl Est Cr Clr Drug Dosing 56.7 ml/min eGFR 46.61 BUN/Creatinine Ratio 16.0 (10-20) Glucose 94 (70-99(Fasting)) mg/dl Lactate 1.4 (0.4-2.0) mmol/L Calcium 10.2 (8.6-10.3) mg/dl Magnesium 1.8 (1.7-2.4) mg/dl Total Bilirubin 0.7 (0.2-1.0) mg/dl Direct Bilirubin 0.1 (0-0.2) mg/dl AST 15 (13-39) U/L ALT 12 (7-52) U/L Alkaline Phosphatase 84 (34-104) U/L Troponin I High Sens 12.3 (0-20) pg/ml Total Protein 8.2 (6.0-8.3) gm/dl Albumin 4.5 (3.4-5.0) gm/dl Procalcitonin 0.16 (0-0.5) ng/ml Urine Color Yellow Urine Appearance Turbid A (Clear) Urine pH 7.5 (4.5-7.5) Ur Specific Austin 1.016 (1.000-1.030) Urine Protein 2+ H (Negative) Urine Glucose (UA) Negative (Negative) Urine Ketones Negative (Negative) Urine Blood 2+ H (Negative) Urine Nitrite Positive A (Negative) Urine Bilirubin Negative (Negative) Urine Urobilinogen Negative (Negative) Ur Leukocyte Esterase 3+ H (Negative) Urine WBC (Auto) >50 H (0-5) /hpf Urine RBC (Auto) >20 H (0-2) /hpf U Hyaline Cast (Auto) 11-20 H (0-2) /lpf U Epithel Cells (Auto) 0-2 (0-2) /hpf Urine Bacteria (Auto) 2+ H (None Seen) Hyaline Casts Present A (None Presnt) /lpf Granular Casts Present A (None Prsent) /lpf Nasal Screen MRSA (PCR) Positive A (Negative) Administered Medications Discontinued Medications Acetaminophen (Acetaminophen 325 Mg Tab) 650 mg PO Q4H PRN PRN Reason: Pain or Fever Stop: 07/21/24 17:27 Last Admin: 06/23/24 21:14 Dose: 650 mg Documented By: Admin: 06/22/24 20:36 Dose: 650 mg Documented By: JESSICA Amlodipine Besylate (Amlodipine Besylate 5 Mg Tab) 5 mg PO DAILY [facility] Stop: 07/22/24 10:14 Last Admin: 06/24/24 09:12 Dose: 5 mg Documented By: Admin: 06/23/24 09:43 Dose: 5 mg Documented By: Admin: 06/22/24 13:02 Dose: 5 mg Documented By: MIGUELITO Baclofen (Baclofen 20 Mg Tab) 20 mg PO QID TARA Stop: 07/21/24 20:59 Last Admin: 06/24/24 13:56 Dose: 20 mg Documented By: Admin: 06/24/24 09:13 Dose: 20 mg Documented By: Admin: 06/23/24 21:11 Dose: 20 mg Documented By: Admin: 06/23/24 19:40 Dose: Not Given Documented By: Admin: 06/23/24 13:06 Dose: 20 mg Documented By: Admin: 06/23/24 09:44 Dose: 20 mg Documented By: Admin: 06/22/24 20:34 Dose: 20 mg Documented By: Admin: 06/22/24 16:42 Dose: 20 mg Documented By: Admin: 06/22/24 13:02 Dose: 20 mg Documented By: Admin: 06/22/24 07:58 Dose: 20 mg Documented By: Admin: 06/21/24 20:42 Dose: 20 mg Documented By: JESSICA Bisacodyl (Bisacodyl 10 Mg Supp) 10 mg WI DAILY PRN PRN Reason: CONSTIPATION Stop: 07/21/24 17:27 Last Admin: 06/24/24 09:38 Dose: 10 mg Documented By: Admin: 06/23/24 15:11 Dose: 10 mg Documented By: GIANA Calcium Citrate (Calcium Citrate 950 Mg Tab) 950 mg PO DAILY TARA Stop: 07/22/24 08:59 Last Admin: 06/24/24 09:11 Dose: 950 mg Documented By: Admin: 06/23/24 09:43 Dose: 950 mg Documented By: Admin: 06/22/24 07:58 Dose: 950 mg Documented By: MIGUELITO Gabapentin (Gabapentin 300 Mg Cap) 300 mg PO TID TARA Stop: 07/21/24 20:59 Last Admin: 06/24/24 13:56 Dose: 300 mg Documented By: Admin: 06/24/24 09:13 Dose: 300 mg Documented By: Admin: 06/23/24 21:11 Dose: 300 mg Documented By: Admin: 06/23/24 13:06 Dose: 300 mg Documented By: Admin: 06/23/24 09:44 Dose: 300 mg Documented By: Admin: 06/22/24 20:34 Dose: 300 mg Documented By: Admin: 06/22/24 13:02 Dose: 300 mg Documented By: Admin: 06/22/24 07:59 Dose: 300 mg Documented By: Admin: 06/21/24 20:42 Dose: 300 mg Documented By: JESSICA Heparin Sodium (Porcine) (Heparin Sod 5,000 Unit/0.5 Ml Vial) 5,000 units SQ Q12 TARA Stop: 07/23/24 20:59 Last Admin: 06/24/24 09:17 Dose: 5,000 units Documented By: Admin: 06/23/24 21:14 Dose: 5,000 units Documented By: JESSICA Hydromorphone HCl (Hydromorphone Inj 0.5 Mg/0.5 Ml Syr) 0.25 mg IV NOW STA Stop: 06/22/24 22:07 Last Admin: 06/22/24 22:14 Dose: 0.25 mg Documented By: JESSICA Sodium Chloride (Nss) 1,000 mls @ 999 mls/hr IV .Q1H1M TARA Stop: 06/21/24 12:30 Last Infusion: 06/21/24 18:06 Dose: Infused Documented By: Admin: 06/21/24 12:18 Dose: 999 mls/hr Documented By: EDISON Cefepime HCl (Maxipime 2000mg) 2,000 mg in 20 mls @ 5 mls/min IV NOW STA; Protocol Stop: 06/21/24 11:28 Last Admin: 06/21/24 12:18 Dose: 5 mls/min Documented By: EDISON Sodium Chloride (Nss) 1,000 mls @ 999 mls/hr IV .Q1H1M ONE Stop: 06/21/24 15:54 Last Infusion: 06/21/24 18:06 Dose: Infused Documented By: Admin: 06/21/24 15:05 Dose: 999 mls/hr Documented By: EDISON Cefepime HCl (Maxipime 2000mg) 1,000 mg in 10 mls @ 5 mls/min IV Q12H TARA; Protocol Stop: 07/01/24 21:59 Last Admin: 06/22/24 08:59 Dose: 5 mls/min Documented By: Admin: 06/21/24 22:45 Dose: 5 mls/min Documented By: JESSICA Parenteral Electrolytes (Plasma-Lyte A Ph 7.4) 1,000 mls @ 125 mls/hr IV .Q8H TARA Stop: 06/22/24 18:29 Last Infusion: 06/22/24 22:38 Dose: Infused Documented By: Admin: 06/22/24 15:38 Dose: 150 mls/hr Documented By: Infusion: 06/22/24 15:38 Dose: Infused Documented By: Admin: 06/22/24 08:59 Dose: 150 mls/hr Documented By: Infusion: 06/22/24 07:56 Dose: Infused Documented By: Admin: 06/22/24 01:15 Dose: 150 mls/hr Documented By: Infusion: 06/22/24 01:15 Dose: Infused Documented By: Admin: 06/21/24 18:34 Dose: 150 mls/hr Documented By: STACIA Cefepime HCl (Maxipime 2000mg) 2,000 mg in 20 mls @ 5 mls/min IV Q12H TARA; Protocol Stop: 07/01/24 15:59 Last Admin: 06/24/24 03:46 Dose: 5 mls/min Documented By: Admin: 06/23/24 16:40 Dose: 5 mls/min Documented By: Admin: 06/23/24 03:33 Dose: 5 mls/min Documented By: Admin: 06/22/24 16:43 Dose: 5 mls/min Documented By: AUSTYN Loratadine (Loratadine 10 Mg Tab) 10 mg PO QAM TARA Stop: 07/22/24 08:59 Last Admin: 06/24/24 09:12 Dose: 10 mg Documented By: Admin: 06/23/24 09:44 Dose: 10 mg Documented By: Admin: 06/22/24 07:59 Dose: 10 mg Documented By: MIGUELITO Miscellaneous (Hydrocortisone-Pramoxine 1-1 % Cream--Order Awaiting Action) 1 each N/A QS [facility] Stop: 07/22/24 00:00 Last Admin: 06/24/24 09:13 Dose: Not Given Documented By: Admin: 06/24/24 00:12 Dose: Not Given Documented By: Admin: 06/23/24 16:32 Dose: Not Given Documented By: Admin: 06/23/24 10:29 Dose: Not Given Documented By: Admin: 06/23/24 00:30 Dose: Not Given Documented By: Admin: 06/22/24 15:37 Dose: Not Given Documented By: Admin: 06/22/24 07:14 Dose: Not Given Documented By: Admin: 06/21/24 23:59 Dose: Not Given Documented By: JESSICA Oxybutynin Chloride (Oxybutynin Chloride Xl 5 Mg Tabcr) 10 mg PO DAILY [facility] Stop: 07/22/24 08:59 Last Admin: 06/24/24 09:14 Dose: 10 mg Documented By: Admin: 06/23/24 09:44 Dose: 10 mg Documented By: Admin: 06/22/24 07:57 Dose: 10 mg Documented By: MIGUELITO Paroxetine HCl (Paroxetine Hcl 10 Mg Tab) 30 mg PO QAM [facility] Stop: 07/22/24 08:59 Last Admin: 06/24/24 09:12 Dose: 30 mg Documented By: Admin: 06/23/24 09:44 Dose: 30 mg Documented By: Admin: 06/22/24 07:58 Dose: 30 mg Documented By: MIGUELITO Polyethylene Glycol (Polyethylene (Miralax) 17 Gm Pack) 17 gm PO DAILY TARA Stop: 07/22/24 08:59 Last Admin: 06/24/24 09:18 Dose: 17 gm Documented By: Admin: 06/23/24 09:45 Dose: 17 gm Documented By: Admin: 06/22/24 07:59 Dose: Not Given Documented By: MIGUELITO Polyethylene Glycol (Polyethylene (Miralax) 17 Gm Pack) 17 gm PO TID [facility] Stop: 07/24/24 13:59 Last Admin: 06/24/24 14:55 Dose: Not Given Documented By: DARRYN Tamsulosin HCl (Tamsulosin Hcl 0.4 Mg Cap) 0.4 mg PO [facility] Stop: 07/21/24 20:59 Last Admin: 06/23/24 21:12 Dose: 0.4 mg Documented By: Admin: 06/22/24 20:34 Dose: 0.4 mg Documented By: Admin: 06/21/24 20:42 Dose: 0.4 mg Documented By: JESSICA Tizanidine HCl (Tizanidine Hcl 4 Mg Tablet) 2 mg PO [facility] Stop: 07/22/24 08:59 Last Admin: 06/24/24 09:14 Dose: 2 mg Documented By: Admin: 06/23/24 09:45 Dose: 2 mg Documented By: Admin: 06/22/24 07:58 Dose: 2 mg Documented By: MIGUELITO Tizanidine HCl (Tizanidine Hcl 4 Mg Tablet) 4 mg PO [facility] Stop: 07/21/24 20:59 Last Admin: 06/23/24 21:12 Dose: 4 mg Documented By: Admin: 06/22/24 20:35 Dose: 4 mg Documented By: Admin: 06/21/24 20:42 Dose: 4 mg Documented By: JESSICA Tramadol HCl (Tramadol Hcl 50 Mg Tablet) 50 mg PO Q4H PRN PRN Reason: Pain Stop: 07/21/24 17:27 Last Admin: 06/23/24 19:24 Dose: 50 mg Documented By: Admin: 06/22/24 19:13 Dose: 50 mg Documented By: Admin: 06/21/24 20:42 Dose: 50 mg Documented By: JESSICA Imaging Data Radiologist's Impression: Chest X-Ray 06/21/24 11:26 XR chest 1V portable CLINICAL HISTORY: Sepsis TECHNIQUE: Single frontal radiograph of the chest was obtained. Comparison: Comparison is made to chest radiograph 08/19/2016 FINDINGS: Cervical fixation hardware is partially visualized. The cardiomediastinal silhouette is stable. There is elevation of the left hemidiaphragm with associated atelectasis. No evidence of pleural effusion or pneumothorax. IMPRESSION: No acute abnormalities and in particular no radiographic evidence of pneumonia. ACT 112: Negative or not required by law. Electronically signed by: Bob Esposito M.D. 06/21/2024 11:52 AM Discharge Plan Visit Data Chief Complaint: Hypotension Stated Complaint: LETHARGIC, LOW BP, POSSIBLE UTI/KIDNEY INFECTION ED Provider: Philip Garcia Discharge Problem: Quadriplegia, Neurogenic bladder, Acute confusion, Acute hypotension, Chronic indwelling Evans catheter Patient Disposition: Admitted As Inpatient Condition: Good Discharge Instructions Interventions: ED Discharge Assessment Last Done: 06/21/24 17:12
--- NOTE | 2024-06-21 11:53 | XRay Report ---
XR chest 1V portable CLINICAL HISTORY: Sepsis TECHNIQUE: Single frontal radiograph of the chest was obtained. Comparison: Comparison is made to chest radiograph 08/19/2016 FINDINGS: Cervical fixation hardware is partially visualized. The cardiomediastinal silhouette is stable. There is elevation of the left hemidiaphragm with associated atelectasis. No evidence of pleural effusion or pneumothorax. IMPRESSION: No acute abnormalities and in particular no radiographic evidence of pneumonia. ACT 112: Negative or not required by law. Electronically signed by: Bob Esposito M.D. 06/21/2024 11:52 AM
[2024-06-21] MEDS: CEFEPIME 2000MG 2,000 MG/20 ML SYR IV STA (12:18)
[2024-06-21] MEDS: SODIUM CHLORIDE 0.9% 1,000 ML IV SCH (12:18)
[2024-06-21 12:28] LABS: Basophils # (auto) 0.02 K/uL (0.00-0.20); Basophils % (auto) 0.2 %; Eosinophils # (auto) 0.13 K/uL (0.00-0.50); Eosinophils % (auto) 1.3 %; Hematocrit (blood only) 47.9 % (42.0-52.0); Hemoglobin 15.8 g/dl (14.0-18.0); Immature Granulocytes # (auto) 0.04 K/uL (0.01-0.20); Immature Granulocytes % (auto) 0.4 %; Lymphocytes % (auto) 7.7 %; Mean Corpuscular Hemoglobin 29.6 pg (25.0-34.0); Mean Corpuscular Volume 89.9 fL (80.0-100.0); Mean Platelet Volume 10.7 fL (9.4-12.4); Monocytes # (auto) 0.77 K/uL (0.11-0.59); Monocytes % (auto) 7.4 %; Neutrophils # (auto) 8.61 K/uL (1.40-6.50); Platelet Count 233 K/uL (130-400); RDW Coefficient of Variation 12.9 % (11.5-14.5); RDW Standard Deviation 42.5 fL (36.4-46.3); Red Blood Count 5.33 M/uL (4.70-6.10); White Blood Count 10.37 K/ul (4.8-10.8)
[2024-06-21 12:37] LABS: Albumin Level 4.5 gm/dl (3.4-5.0); Bilirubin Direct 0.1 mg/dl (0-0.2); Bilirubin,Total 0.7 mg/dl (0.2-1.0); Calcium 10.2 mg/dl (8.6-10.3); Creatinine Clr Calc Pharmacy 56.7 ml/min; Magnesium 1.8 mg/dl (1.7-2.4); Potassium 3.3 mmol/L (3.5-5.1); Total Protein 8.2 gm/dl (6.0-8.3)
[2024-06-21 12:42] LABS: Troponin I High Sensitivity 12.3 pg/ml (0-20)
[2024-06-21 14:04] LABS: Appearance Urine Turbid (Clear); Bacteria Urine Automated 2+ (None Seen); Bilirubin Urine Negative (Negative); Blood Urine 2+ (Negative); Color Urine Yellow; Epithelial Cell Urine Auto 0-2 /hpf (0-2); Glucose Urine UA Negative (Negative); Granular Casts Urine Present /lpf (None Prsent); Hyaline Casts Urine Present /lpf (None Presnt); Ketones Urine Negative (Negative); Leukocyte Esterase Urine 3+ (Negative); Nitrite Urine Positive (Negative); Protein Urine 2+ (Negative); RBC Urine Automated >20 /hpf (0-2); Specific Gravity Urine 1.016 (1.000-1.030); Urobilinogen Urine Negative (Negative); WBC Urine Automated >50 /hpf (0-5); pH Urine 7.5 (4.5-7.5)
--- NOTE | 2024-06-21 14:39 | History & Physical Report ---
Date of Service June 21, 2024 Assessment & Plan (1) Urinary tract infection: Plan: Symptoms of AMS and hypotension x 1 day, no other complaints w/ exception of urine appearing darker than normal per ; Chronic catheterization - UA show turbid appearance, 2+ protein, 2+ blood, positive nitrate, 3+ LE, presence of WBC RBC, hyaline cast, 2+ bacteria - Pending cx - History of Pseudomonas colonization, per -> provided w/ Cefepime in ED - Continue cefepime 2 g IV - CTAP 8x3 millimeters distal right ureteral stone without hydronephrosis, large staghorn stone in right kidney with inflammation in right renal pelvis, bladder inflamed, Evans catheter balloon inflated in the prostatic urethra - No current fever or leukocytosis - Urology consulted - Maintenance fluids started - N.p.o. midnight Appreciate urology input + recs (2) Acute hypotension: Plan: Normal BP ranging ~ 140s-150s systolic, per - Noted to be hypotensive on arrival and on repeat evaluation; Nursing states that patient's blood pressures seem to drop mainly when he is sleeping but remains in normal range when awake - Provided with 2L NSS in ED- will continue to reevaluate - H+H stable, no active signs of bleeding - HOLD antihypertensives until BP WNL- Amlodipine, chlorthalidone, furosemide, Lisinopril (unsure if pt is actually taking) (3) Acute kidney injury: Plan: Likely secondary to UTI + poor oral intake over last few days - Cr increased 1.56, BUN elevated to 25 - UA with signs of infection (see above, #1) - Given 2L NSS in ED - Bladder scan prn - Continue to promote oral hydration and manage UTI to resolve TORY (4) Quadriplegia: Plan: Incomplete quadriplegia (C4 lesion), s/p 2010 trauma - Wheelchair - Skin checks, weight changes - Muscle spasms- Baclofen, gabapentin, Tizanidine (5) Calculus of ureter: Plan Anxiety- Paroxetine H/o DVT- LLE, 2010; IVC in place currently Overactive bladder/BPH- Solifenacin/Tamsulosin Dispo: Admit Diet: Heart healthy; NPO midnight VTE Prophylaxis: IVC in place, SCDs - h/o hematuria, no chemical prophylaxis Code: Full Admission and Anticipated Discharge Date Admission Date: 06/21/2024 History of Present Illness Chief Complaint: AMS, hypotension Primary Care Provider: Dang Pritchett DO 71-year-old male presenting to ED after being in outpatient urology appointment noted to have hypotension and "not himself." ED course: CBC 85.60 lymphocytes 0.8, monocytes 0.77; CMP potassium 3.3, carbon dioxide 37, BUN 25, creatinine 1.56; troponin 12.3; procalcitonin 0.16; UA turbid appearance, 2+ protein, 2+ blood, positive nitrate, 3+ LE, presence of WBC RBC, hyaline cast, 2+ bacteria; CXR no acute abnormalities in particular no evidence of pneumonia; EKG NSR, rate around 70 bpm. Provided with cefepime and NSS in ED. Patient is a 74-year-old quadriplegic male PMHx neurogenic bladder, HLD, HTN, and history of DVT who presents for episode of hypotension and for being "not himself". helps to provide the entirty of the history. States that the night prior to arrival, the patient was at his detention and noted to be confused by staff. Reportedly lingered into the day of arrival, and was found to be hypotensive during outpatinet appointment. Had not been complaining of any other symptoms, per . States that he does have a chronic catheter, initially was suprapubic now urethral. Was inserted 1.5 to 2 weeks ago, has not been changed since. states every time that the patient uses urethral catheter, he tends to get a UTI following this. Does have colonized urine in his bladder. Otherwise no reports of fever/chills, shortness of breath, or urinary symptoms. Received all a.m. medications. Please see Dr. Davis's attestation for adjustments/additions to treatment plan. Allergies Allergy/AdvReac Type Severity Reaction Status Date / Time ciprofloxacin [Cipro] Allergy Intermediate rash Verified 06/18/24 12:07 diazepam Allergy Intermediate rash Verified 06/18/24 12:07 gentamicin Allergy Intermediate rash Verified 06/18/24 12:07 ibuprofen Allergy Intermediate rash Verified 06/18/24 12:07 NSAIDS (Non-Steroidal Allergy Intermediate rash Verified 06/18/24 12:07 Anti-Inflamma Quinolones Allergy Intermediate rash Verified 06/18/24 12:07 Aminoglycosides Allergy Unknown unknown Verified 06/18/24 12:07 Home Medications Medication Instructions Recorded Confirmed Type amlodipine 5 mg tablet (Norvasc) 5 mg PO DAILY HTN 03/22/19 06/21/24 History baclofen 20 mg tablet 20 mg PO QID MUSCLE SPASMS 03/22/19 06/21/24 History bisacodyl 10 mg rectal suppository 10 mg ID DAILY PRN CONSTIPATION 03/22/19 06/21/24 History furosemide 20 mg tablet 30 mg PO DAILY CHF 03/22/19 06/21/24 History gabapentin 300 mg capsule 300 mg PO TID NEUROPATHY 03/22/19 06/21/24 History loratadine 10 mg tablet 10 mg PO QAM ALLRGIES 03/22/19 06/21/24 History paroxetine HCl 30 mg tablet (Paxil) 30 mg PO QAM ANXIETY 03/22/19 06/21/24 History calcium citrate 1,000 mg PO DAILY 05/10/22 06/21/24 History cholecalciferol (vitamin D3) 50 50 mcg PO QAM 04/24/23 06/21/24 History mcg (2,000 unit) capsule (Vitamin D3) selenium sulfide 2.5 % lotion 1 applic topical UD PRN dandruff 04/24/23 06/21/24 History acetaminophen 325 mg tablet 650 mg PO Q4H PRN PAIN/FEVER 08/17/23 06/21/24 History (Tylenol) melatonin 3 mg tablet 3 mg PO HS PRN Sleep 08/17/23 06/21/24 History tizanidine 2 mg tablet 2 mg PO QAM 08/17/23 06/21/24 History tramadol 50 mg tablet 50 mg PO Q4H PRN Pain 08/17/23 06/21/24 History ketoconazole 2 % shampoo 1 ea topical UD 10/03/23 06/21/24 History polyethylene glycol 3350 17 17 g PO DAILY 10/03/23 06/21/24 History gram/dose oral powder (Miralax) tamsulosin 0.4 mg capsule 0.4 mg PO HS 10/03/23 06/21/24 History tizanidine 4 mg tablet 4 mg PO HS 10/03/23 06/21/24 History solifenacin 10 mg tablet (Vesicare) 10 mg PO DAILY #30 tabs 06/12/24 06/21/24 Rx Thera Silicone Skin Guard 1 applic topical BID prevention 06/18/24 06/21/24 History chlorthalidone 25 mg tablet 12.5 mg PO DAILY 06/18/24 06/21/24 History hydrocortisone-pramoxine 1 %-1 % 1 applic topical QID PRN Pain 06/18/24 06/21/24 History topical cream lisinopril 40 mg tablet 0 mg PO QAM 06/18/24 06/21/24 History calcium carbonate (Tums E-X) 300 mg PO TID PRN Indigestion 06/21/24 06/21/24 History camphor 4.7 %-eucalyptus oil 1.2 1 applic topical TID PRN Congestion 06/21/24 06/21/24 History %-menthol 2.6 % topical ointment (Vicks Vaporub) magnesium hydroxide 400 mg/5 mL 2,400 mg PO DAILY PRN Constipation 06/21/24 06/21/24 History oral suspension (Milk of Magnesia) sodium chloride 0.65 % nasal spray 2 spray intranasal QID PRN DRYNESS 06/21/24 06/21/24 History aerosol (Saline Mist) sodium phosphates 19 gram-7 118 ml ID DAILY PRN Constipation 06/21/24 06/21/24 History gram/118 mL enema (Fleet Enema) Past Med/Surg History Problem List (Updated 06/22/24 @ 08:56 by Suhail Davis MD) Calculus of ureter Acute kidney injury Urinary tract infection Chronic indwelling Evans catheter (Acute) Acute hypotension (Acute) Acute confusion (Acute) Neurogenic bladder (Acute) Occlusion of ureteral stent (Acute) Hydronephrosis with renal and ureteral calculous obstruction (Acute) Hematuria Displacement of nephrostomy tube (Acute) removed in ER @ [facility], [place] 03/19/23 Nephrolithiasis Muscle spasms of both lower extremities Vitamin deficiency Spermatocele History of DVT (deep vein thrombosis) Hyperlipidemia Neurogenic bladder Anticoagulated (Acute) HTN (hypertension) (Acute) Encounter for pre-operative examination Quadriplegia "Partial"/Incomplete quadriplegia (C4 lesion) s/p 2010 trauma Medical History Gross hematuria Unspecified fracture of shaft of right tibia, subsequent encounter for closed fr acture with routine healing Hypertensive heart disease without heart failure Personal history of urinary (tract) infections Weakness Quadriplegia, C1-C4 incomplete Sepsis, unspecified organism Calculus of ureter Personal history of other venous thrombosis and embolism Insomnia Other muscle spasm Hyperlipidemia Urine retention MRSA (methicillin resistant staph aureus) culture positive blood and urine cultures 02/2023 hospitalization [facility] of [facility] [place] Depression Anxiety GERD (gastroesophageal reflux disease) Neurogenic bladder History of COVID-19 12/2021- no symptoms, resolved Recurrent UTI (urinary tract infection) Suprapubic catheter Situational depression Chronic pain Generalized/diffuse Central cord syndrome Spinal cord injury C4/5 Partial paralysis below shoulders Deep vein thrombosis LLE (after trauma/thrown off horse 2010), IVC placed Hypertension Surgical History S/P cystoscopy with ureteral stent placement w/laser destruction kidney stone; multiple History of urologic surgery left spermatocelectomy placement suprapubic catheter History of orthopedic surgery H/O hemorrhoidectomy Hx of surgical procedure Spermatocelectomy, left (08/05/19): LMA#5 at [facility], [place]. No issues noted per post-op anesthesia progress note. 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[employer] Education Required: No Beliefs That Will Affect Care: None Current Living Situation: [facility] Current Living Situation Comment: [facility] Feels Safe at Home: Yes Assistive Devices: Glasses Review of Systems Review of Systems: Other Physical Exam Physical Exam: General: No acute distress; Sleeping at time of visit Skin: Warm and dry Head: Normocephalic, atraumatic Eyes: Wearing glasses ENT: External ear and ear canal without swelling; nose atraumatic; good dentition, tongue normal appearance Neck: Supple, no LAD Cardio: RRR, no M/G/R, S1 and S2 normal Resp: No respiratory distress, Lungs CTA in all lobes bilaterally, no wheezes, rales, or rhonchi Abdomen: Soft, symmetric, nontender; No masses or hepatosplenomegaly; Bowel sounds normoactive MSK: No deformities; pulses palpable and equal; no edema. Neuro: Sleeping; quadriplegic,shoulders down Psych: Sleeping is present in room at time of visit. Results & Data Results & Data Vital Signs (Past 12 Hours) Vital Signs Temp Pulse Pulse Resp BP BP Pulse Ox 06/21/24 13:59 71 20 121/74 93 06/21/24 13:22 77 18 151/90 H 94 06/21/24 12:15 73 06/21/24 11:41 76 92 06/21/24 11:41 76 20 127/76 92 06/21/24 11:41 06/21/24 11:13 36.3 C L 75 16 106/67 92 O2 Del Method 06/21/24 13:59 Room Air 06/21/24 13:22 Room Air 06/21/24 12:15 06/21/24 11:41 Room Air 06/21/24 11:41 Room Air 06/21/24 11:41 Room Air 06/21/24 11:13 Room Air Laboratory Results 06/21/24 13:35 Urine Culture - Pending Urine,Indwelling Cath 06/21/24 12:56 Aerobic Blood Culture - Pending Blood Anaerobic Blood Culture - Pending 06/21/24 12:00 Aerobic Blood Culture - Pending Blood Anaerobic Blood Culture - Pending 06/21/24 06/21/24 13:35 12:00 WBC 10.37 RBC 5.33 Hgb 15.8 Hct 47.9 MCV 89.9 MCH 29.6 MCHC 33.0 RDW Std Deviation 42.5 RDW Coeff of Cesar 12.9 Plt Count 233 MPV 10.7 Immature Gran % (Auto) 0.4 Neut % (Auto) 83.0 Lymph % (Auto) 7.7 [place] % (Auto) 7.4 Eos % (Auto) 1.3 Baso % (Auto) 0.2 Neut # (Auto) 8.61 H Lymph # (Auto) 0.80 L [place] # (Auto) 0.77 H Eos # (Auto) 0.13 Baso # (Auto) 0.02 Immature Gran # (Auto) 0.04 Sodium 141 Potassium 3.3 L Chloride 98 Carbon Dioxide 37 H Anion Gap 6 BUN 25 H Creatinine 1.56 H Est Cr Clr Drug Dosing 56.7 eGFR 46.61 BUN/Creatinine Ratio 16.0 Glucose 94 Lactate 1.4 Calcium 10.2 Magnesium 1.8 Total Bilirubin 0.7 Direct Bilirubin 0.1 AST 15 ALT 12 Alkaline Phosphatase 84 Troponin I High Sens 12.3 Total Protein 8.2 Albumin 4.5 Procalcitonin 0.16 Urine Color Yellow Urine Appearance Turbid A Urine pH 7.5 Ur Specific [place] 1.016 Urine Protein 2+ H Urine Glucose (UA) Negative Urine Ketones Negative Urine Blood 2+ H Urine Nitrite Positive A Urine Bilirubin Negative Urine Urobilinogen Negative Ur Leukocyte Esterase 3+ H Urine WBC (Auto) >50 H Urine RBC (Auto) >20 H U Hyaline Cast (Auto) 11-20 H U Epithel Cells (Auto) 0-2 Urine Bacteria (Auto) 2+ H Hyaline Casts Present A Granular Casts Present A Diagnostic Findings Chest X-Ray 06/21/24 11:26 XR chest 1V portable CLINICAL HISTORY: Sepsis TECHNIQUE: Single frontal radiograph of the chest was obtained. Comparison: Comparison is made to chest radiograph 08/19/2016 FINDINGS: Cervical fixation hardware is partially visualized. The cardiomediastinal silhouette is stable. There is elevation of the left hemidiaphragm with associated atelectasis. No evidence of pleural effusion or pneumothorax. IMPRESSION: No acute abnormalities and in particular no radiographic evidence of pneumonia. ACT 112: Negative or not required by law. Electronically signed by: Bob Esposito M.D. 06/21/2024 11:52 AM Supervising Physician Co-Signing Physician Notes I personally saw and examined the patient. I independently reviewed the labs, EKG, imaging, problem list, medication list, past medical history and family history. I verified all thompson points and agree with Anna Bartholomew PA-C with the following exceptions and/or additions: 74 year old with incomplete quadriplegia present to the ER with worsening weakness, confusions and diaphoresis O/E HS RRR, no murmurs, Chest CTAB, Abdo SNT, no CVA tenderness (although decreased sensation due to quadriplegia A/P UTI with ureterolithiasis - not currently septic therefore treat with cefepime, NPO after midnight, consult urology, IV cefepime given significant history of pseudomonas PG Care Time/CCT Total # of Minutes Spent Total Time Spent with Patient: Total time spent is greater than 50% in coordination of care (as documented) at patient's floor/unit and/or counseling patient: Coding Level of Care Code 04595 INT INP/OBS CARE 2/55MIN Diagnoses Urinary tract infection N39.0 Acute hypotension I95.9 Acute kidney injury N17.9 Quadriplegia G82.50 Calculus of ureter N20.1 Time Spent (min) 45
[2024-06-21] MEDS: SODIUM CHLORIDE 0.9% 1,000 ML IV ONE (15:05)
--- NOTE | 2024-06-21 16:46 | CT Scan Report ---
EXAM: CT Abdomen and Pelvis Without Intravenous Contrast INDICATION: Urinary tract infection. TECHNIQUE: Axial computed tomography images of the abdomen and pelvis without intravenous contrast. Sagittal and coronal reformatted images were created and reviewed. This CT exam was performed using one or more of the following dose reduction techniques: automated exposure control, adjustment of the mA and/or kV according to patient size, and/or use of iterative reconstruction technique. COMPARISON: No relevant prior studies available. FINDINGS: Limitations: None. Lung bases: There is basilar atelectasis left greater than right. Pleural space: Trace left basilar pleural effusion noted. Heart: Mild cardiomegaly. No pericardial effusion. Mediastinum: No abnormality noted. ABDOMEN: Liver: Benign cyst right hepatic lobe. The liver otherwise appears normal. Gallbladder and bile ducts: No calcified stones or surrounding fluid. Pancreas: No pancreatic mass, calcification, inflammation or ductal dilation noted. Spleen: No significant abnormality noted. Adrenals: Bilateral adrenal adenomas present less than 2 cm. No further assessment required. Kidneys and ureters: Question urolithiasis. Large staghorn stone noted in the right kidney. Multiple other stones noted in the right kidney with the largest in the lower pole measuring 1.7 x 1.2 cm. There are multiple nonobstructing stones within the left kidney measuring up to 4 x 6 mm. Probable partial nephrectomy right kidney with postsurgical changes identified. There are simple cysts in the left kidney for which no further assessment required. There is mild inflammation of the right renal pelvis. There is an 8 x 3 mm stone in the right ureter approximately 2.8 cm proximal to the UVJ. Stomach and bowel: Colonic diverticulosis without diverticulitis. No intestinal thickening or obstruction. PELVIS: Appendix: No findings to suggest acute appendicitis. Bladder: There are a couple of stones in the urinary bladder which is inflamed. Reproductive: No abnormalities noted. ABDOMEN and PELVIS: Intraperitoneal space: No free air. No significant fluid collection. Bones/joints: Degenerative changes noted throughout the spine. No acute osseous abnormality seen. Soft tissues: Umbilical hernia containing fat. Vasculature: There is mild atherosclerotic plaque in the distal aorta and common iliac arteries. There is dense left coronary calcification. No aneurysm. Lymph nodes: No pathologically enlarged lymph nodes. Tubes, lines and devices: The urinary catheter balloon is inflated in the prostatic urethra. IMPRESSION: 1. 8 x 3 mm distal right ureteral stone without hydronephrosis. 2. Large staghorn stone in the right kidney with inflammation of the right renal pelvis. The bladder is inflamed. Findings most certainly infectious. 3. Evans catheter balloon is inflated in the prostatic urethra. ACT 112: Negative or not required by law. Electronically signed by Malina Delgado 06-21-2024 4:45 PM
[2024-06-21] MEDS ORDERED: MELATONIN 3 MG TAB PO PRN (17:28)
[2024-06-21] MEDS ORDERED: MAGNESIUM HYDROXIDE SUSP 30 ML UDC PO PRN (17:28)
[2024-06-21] MEDS ORDERED: CALCIUM CARBONATE 500 MG CHEWABLE TAB PO PRN (17:38)
[2024-06-21] MEDS: PLASMA-LYTE A 1,000 ML IV SCH (18:34)
[2024-06-21] MEDS: GABAPENTIN 300 MG CAP PO SCH (20:42)
[2024-06-21] MEDS: TAMSULOSIN HCL 0.4 MG CAP PO SCH (20:42)
[2024-06-21] MEDS: tiZANidine HCL 4 MG TABLET PO SCH (20:42)
[2024-06-21] MEDS: traMADol HCL 50 MG TABLET PO PRN (20:42)
[2024-06-21] MEDS: BACLOFEN 20 MG TAB PO SCH (20:42)
[2024-06-21] MEDS: CEFEPIME 1000MG 1,000 MG/10 ML SYR IV SCH (22:45)
[2024-06-22] MEDS: OXYBUTYNIN CHLORIDE XL 5 MG TABCR PO SCH (07:57)
[2024-06-22] MEDS: PARoxetine HCL 10 MG TAB PO SCH (07:58)
[2024-06-22] MEDS: tiZANidine HCL 4 MG TABLET PO SCH (07:58)
[2024-06-22] MEDS: CALCIUM CITRATE 950 MG TAB PO SCH (07:58)
[2024-06-22] MEDS: LORATADINE 10 MG TAB PO SCH (07:59)
[2024-06-22] MEDS: POLYETHYLENE (MIRALAX) 17 GM PACK PO SCH (07:59)
--- NOTE | 2024-06-22 10:10 | Hospitalist Progress Note ---
Date of Service June 22, 2024 Assessment & Plan (1) Urinary tract infection: Plan: Symptoms of AMS and hypotension x 1 day, no other complaints w/ exception of urine appearing darker than normal per ; Chronic catheterization - UA show turbid appearance, 2+ protein, 2+ blood, positive nitrate, 3+ LE, presence of WBC RBC, hyaline cast, 2+ bacteria - UCx showing multiple organisms - History of Pseudomonas colonization, per - Continue cefepime 2 g IV - CTAP 8x3 millimeters distal right ureteral stone without hydronephrosis, large staghorn stone in right kidney with inflammation in right renal pelvis, bladder inflamed, Evans catheter balloon inflated in the prostatic urethra - No current fever or leukocytosis - Urology consulted - to OR today for b/l stent placement - Maintenance fluids started (2) Acute hypotension: Plan: Normal BP ranging ~ 140s-150s systolic, per - Noted to be hypotensive on arrival and on repeat evaluation; Nursing states that patient's blood pressures seem to drop mainly when he is sleeping but remains in normal range when awake - Provided with 2L NSS in ED- BP improved - restart amlodipine, hold other antihypertensives, continue to monitor BP (3) Acute kidney injury: Plan: Likely secondary to UTI + poor oral intake over last few days - Cr increased 1.56, BUN elevated to 25, repeat pending - UA with signs of infection, likely in setting of infected/colonized renal and ureteral calculi - Bladder scan prn - Continue to promote oral hydration and manage UTI to resolve TORY (4) Quadriplegia: Plan: Incomplete quadriplegia (C4 lesion), s/p 2010 trauma - Wheelchair - Skin checks, weight changes - Muscle spasms- Baclofen, gabapentin, Tizanidine (5) Calculus of ureter: Plan Anxiety- Paroxetine H/o DVT- LLE, 2010; IVC in place currently Overactive bladder/BPH- Solifenacin/Tamsulosin Dispo: Admit Diet: Heart healthy; NPO midnight VTE Prophylaxis: IVC in place, SCDs - h/o hematuria, no chemical prophylaxis Code: Full Admission and Anticipated Discharge Date Admission Date: June 21, 2024 Supervising Physician Co-Signing Physician Notes Attending Physician Supervision Note: I independently interviewed and examined the patient and verified the thompson hist ory and physical, reviewed labs and image studies and agree with findings and care plan noted above. 74 year old with incomplete quadriplegia present to the ER with worsening weakness, confusions and diaphoresis HS RRR, no murmurs, Chest CTAB, Abdo SNT, UTI with ureterolithiasis - chronic urinary catheter. Suprapubic catheter removed recently and indwelling cath placed. s/p cystoscopy (06/22) - bilateral retrograde pyelogram, Bilateral ureteral dilation, Bilateral stent placement, Cystolithalopaxy -continue IV cefepime (significant h/o pseudomonas). 3 organism growing in urine cx - recheck ordered. blood cx neg. -tylenol and tramadol for pain control TORY - resolved Hypok - on chlorthalidone and lasix - on hold. -recheck and replace as needed. Acute hypotension - resolved Metabolic encephalopathy - resolved. Hx of DVT - add dVT proph Quadraplegia - frequent turns to prevent decubitus Overactive bladder - continue home meds. HTN/Chronic pain - home meds. Assess for chemical dvt proph in am considering ? hematuria Subjective Patient seen and evaluated at bedside this morning. No acute events overnight. No acute complaints this am. Feels he is largely at his baseline. On cefepime. BP improved from admission. To OR today for stent placement. Review of Systems Review of Systems: reviewed, per HPI Physical Exam Physical Exam: Constitutional: well-appearing, no acute distress HEENT: NCAT, no conjunctival injection CV: regular rhythm, no murmur appreciated, extremities well-perfused, no LE edema Resp: CTABL, no wheezes/rales/rhonchi appreciated, no increased work of breathing GI: nondistended MSK: contractures of b/l UE Skin: warm, dry, no rash appreciated : suprapubic catheter in place Neuro: alert, oriented, quadriplegia Results & Data Results & Data Vital Signs (Past 12 Hours) Vital Signs Temp Pulse Resp BP Pulse Ox O2 Del Method 06/22/24 08:04 36.5 C 75 16 180/79 H 94 Room Air Resident Activity Tracking Resident Involvement: Resident Care Provided Care Provided: Adult Hospital Medicine
--- NOTE | 2024-06-22 10:35 | Anesthesiology Consultation ---
Date of Service June 22, 2024 Assessment & Plan (1) Encounter for pre-operative examination: Chart Review Chart Review: Acceptable Risk for Surgery History Surgery Operation Date: 06/22/24 10:30 Proposed Procedures p Ureteral Stent Insertion/Removal(Bilateral) - Mukund Velasquez DO Height/Weight Height: 6 ft 1 in Weight: 117.9 kg Allergies Allergy/AdvReac Type Severity Reaction Status Date / Time ciprofloxacin [Cipro] Allergy Intermediate rash Verified 06/18/24 12:07 diazepam Allergy Intermediate rash Verified 06/18/24 12:07 gentamicin Allergy Intermediate rash Verified 06/18/24 12:07 ibuprofen Allergy Intermediate rash Verified 06/18/24 12:07 NSAIDS (Non-Steroidal Allergy Intermediate rash Verified 06/18/24 12:07 Anti-Inflamma Quinolones Allergy Intermediate rash Verified 06/18/24 12:07 Aminoglycosides Allergy Unknown unknown Verified 06/18/24 12:07 Medications Home Medications Medication Instructions Recorded Confirmed Last Taken amlodipine 5 mg tablet (Norvasc) 5 mg PO DAILY HTN 03/22/19 06/21/24 10/02/23 09:00 baclofen 20 mg tablet 20 mg PO QID MUSCLE SPASMS 03/22/19 06/21/24 10/03/23 06:00 bisacodyl 10 mg rectal suppository 10 mg TN DAILY PRN CONSTIPATION 03/22/19 06/21/24 10/02/23 10:45 furosemide 20 mg tablet 30 mg PO DAILY CHF 03/22/19 06/21/24 10/02/23 09:00 gabapentin 300 mg capsule 300 mg PO TID NEUROPATHY 03/22/19 06/21/24 10/03/23 09:00 loratadine 10 mg tablet 10 mg PO QAM ALLRGIES 03/22/19 06/21/24 10/02/23 09:00 paroxetine HCl 30 mg tablet (Paxil) 30 mg PO QAM ANXIETY 03/22/19 06/21/24 10/02/23 09:00 calcium citrate 1,000 mg PO DAILY 05/10/22 06/21/24 10/02/23 09:00 cholecalciferol (vitamin D3) 50 50 mcg PO QAM 04/24/23 06/21/24 10/02/23 09:00 mcg (2,000 unit) capsule (Vitamin D3) selenium sulfide 2.5 % lotion 1 applic topical UD PRN dandruff 04/24/23 06/21/24 09/30/23 acetaminophen 325 mg tablet 650 mg PO Q4H PRN PAIN/FEVER 08/17/23 06/21/24 Unknown (Tylenol) melatonin 3 mg tablet 3 mg PO HS PRN Sleep 08/17/23 06/21/24 Unknown tizanidine 2 mg tablet 2 mg PO QAM 08/17/23 06/21/24 10/02/23 09:00 tramadol 50 mg tablet 50 mg PO Q4H PRN Pain 08/17/23 06/21/24 10/02/23 22:47 ketoconazole 2 % shampoo 1 ea topical UD 10/03/23 06/21/24 09/30/23 polyethylene glycol 3350 17 17 g PO DAILY 10/03/23 06/21/24 10/02/23 09:00 gram/dose oral powder (Miralax) tamsulosin 0.4 mg capsule 0.4 mg PO HS 10/03/23 06/21/24 10/02/23 21:00 tizanidine 4 mg tablet 4 mg PO HS 10/03/23 06/21/24 10/02/23 21:00 solifenacin 10 mg tablet (Vesicare) 10 mg PO DAILY #30 tabs 06/12/24 06/21/24 Unknown Thera Silicone Skin Guard 1 applic topical BID prevention 06/18/24 06/21/24 Unknown chlorthalidone 25 mg tablet 12.5 mg PO DAILY 06/18/24 06/21/24 Unknown hydrocortisone-pramoxine 1 %-1 % 1 applic topical QID PRN Pain 06/18/24 06/21/24 Unknown topical cream lisinopril 40 mg tablet 0 mg PO QAM 06/18/24 06/21/24 Unknown calcium carbonate (Tums E-X) 300 mg PO TID PRN Indigestion 06/21/24 06/21/24 Unknown camphor 4.7 %-eucalyptus oil 1.2 1 applic topical TID PRN Congestion 06/21/24 06/21/24 Unknown %-menthol 2.6 % topical ointment (Vicks Vaporub) magnesium hydroxide 400 mg/5 mL 2,400 mg PO DAILY PRN Constipation 06/21/24 06/21/24 Unknown oral suspension (Milk of Magnesia) sodium chloride 0.65 % nasal spray 2 spray intranasal QID PRN DRYNESS 06/21/24 06/21/24 Unknown aerosol (Saline Mist) sodium phosphates 19 gram-7 118 ml TN DAILY PRN Constipation 06/21/24 06/21/24 Unknown gram/118 mL enema (Fleet Enema) Active Medications Generic Name Dose Route Start Last Admin Trade Name Freq PRN Reason Stop Dose Admin Baclofen 20 mg 06/21/24 21:00 06/22/24 07:58 Baclofen 20 Mg Tab PO 07/21/24 20:59 20 mg QID TARA Administration Calcium Citrate 950 mg 06/22/24 09:00 06/22/24 07:58 Calcium Citrate 950 Mg Tab PO 07/22/24 08:59 950 mg DAILY TARA Administration Gabapentin 300 mg 06/21/24 21:00 06/22/24 07:59 Gabapentin 300 Mg Cap PO 07/21/24 20:59 300 mg TID TARA Administration Cefepime HCl 1,000 mg in 10 mls @ 5 mls/min 06/21/24 22:00 06/22/24 08:59 Maxipime 2000mg IV 07/01/24 21:59 5 mls/min Q12H TARA Administration Protocol Parenteral Electrolytes 1,000 mls @ 125 mls/hr 06/21/24 18:30 06/22/24 08:59 Plasma-Lyte A Ph 7.4 IV 06/22/24 18:29 150 mls/hr .Q8H TARA Administration Loratadine 10 mg 06/22/24 09:00 06/22/24 07:59 Loratadine 10 Mg Tab PO 07/22/24 08:59 10 mg QAM TARA Administration Miscellaneous 1 each 06/22/24 00:00 06/22/24 07:14 Hydrocortisone-Pramoxine 1-1 % Cream--Order Awaiting Action N/A 07/22/24 00:00 Not Given QS TARA Oxybutynin Chloride 10 mg 06/22/24 09:00 06/22/24 07:57 Oxybutynin Chloride Xl 5 Mg Tabcr PO 07/22/24 08:59 10 mg DAILY TARA Administration Paroxetine HCl 30 mg 06/22/24 09:00 06/22/24 07:58 Paroxetine Hcl 10 Mg Tab PO 07/22/24 08:59 30 mg QAM TARA Administration Polyethylene Glycol 17 gm 06/22/24 09:00 06/22/24 07:59 Polyethylene (Miralax) 17 Gm Pack PO 07/22/24 08:59 Not Given DAILY TARA Tamsulosin HCl 0.4 mg 06/21/24 21:00 06/21/24 20:42 Tamsulosin Hcl 0.4 Mg Cap PO 07/21/24 20:59 0.4 mg HS TARA Administration Tizanidine HCl 2 mg 06/22/24 09:00 06/22/24 07:58 Tizanidine Hcl 4 Mg Tablet PO 07/22/24 08:59 2 mg QAM TARA Administration Tizanidine HCl 4 mg 06/21/24 21:00 06/21/24 20:42 Tizanidine Hcl 4 Mg Tablet PO 07/21/24 20:59 4 mg HS TARA Administration Tramadol HCl 50 mg 06/21/24 17:28 06/21/24 20:42 Tramadol Hcl 50 Mg Tablet PO 07/21/24 17:27 50 mg Q4H PRN Administration Pain NPO Date Last Intake of Fluids: 06/21/24 Time Last Intake of Fluids: 23:00 Past Medical History Medical History Gross hematuria Unspecified fracture of shaft of right tibia, subsequent encounter for closed fracture with routine healing Hypertensive heart disease without heart failure Personal history of urinary (tract) infections Weakness Quadriplegia, C1-C4 incomplete Sepsis, unspecified organism Personal history of other venous thrombosis and embolism Insomnia Other muscle spasm Hyperlipidemia Urine retention MRSA (methicillin resistant staph aureus) culture positive blood and urine cultures 02/2023 hospitalization care home resident resident of [facility] Depression Anxiety GERD (gastroesophageal reflux disease) Neurogenic bladder History of COVID-19 12/2021- no symptoms, resolved Recurrent UTI (urinary tract infection) Suprapubic catheter Situational depression Chronic pain Generalized/diffuse Central cord syndrome Spinal cord injury C4/5 Partial paralysis below shoulders Deep vein thrombosis LLE (after trauma/thrown off horse 2010), IVC placed Hypertension Past Family History Family History Mother Family hx colonic polyps Past Surgical History Surgical History S/P cystoscopy with ureteral stent placement w/laser destruction kidney stone; multiple History of urologic surgery left spermatocelectomy placement suprapubic catheter History of orthopedic surgery H/O hemorrhoidectomy Hx of surgical procedure Spermatocelectomy, left (08/05/19): LMA#5 at [facility]. No issues noted per post-op anesthesia progress note. History of lithotripsy History of cystoscopy cysto, laser, stent (05/02/23): LMA#5 at [facility] History of colonoscopy History of tooth extraction History of arthroscopy left knee Previous back surgery fusion C4/C5 Social History Smoking Status: Never smoker Do You Dip or Chew Tobacco: No Hx Alcohol Use: Yes Alcohol type: hard liquor alcohol intake frequency: a few times a week Hx Substance Use: No substance use type: does not use Physical Exam Vital Signs Last Vital Signs Temp 36.5 C 06/22/24 08:04 Pulse 75 06/22/24 08:04 Resp 16 06/22/24 08:04 BP 180/79 H 06/22/24 08:04 Pulse Ox 94 06/22/24 08:04 O2 Del Method Room Air 06/22/24 08:04 Testing Laboratory Results Urine Color Yellow 06/21/24 13:35 Urine Appearance Turbid (Clear) A 06/21/24 13:35 Urine pH 7.5 (4.5-7.5) 06/21/24 13:35 Ur Specific [place] 1.016 (1.000-1.030) 06/21/24 13:35 Urine Protein 2+ (Negative) H 06/21/24 13:35 Urine Glucose (UA) Negative (Negative) 06/21/24 13:35 Urine Ketones Negative (Negative) 06/21/24 13:35 Urine Nitrite Positive (Negative) A 06/21/24 13:35 Ur Leukocyte Esterase 3+ (Negative) H 06/21/24 13:35 Urine WBC (Auto) >50 /hpf (0-5) H 06/21/24 13:35 Urine RBC (Auto) >20 /hpf (0-2) H 06/21/24 13:35 U Hyaline Cast (Auto) 11-20 /lpf (0-2) H 06/21/24 13:35 U Epithel Cells (Auto) 0-2 /hpf (0-2) 06/21/24 13:35 Urine Bacteria (Auto) 2+ (None Seen) H 06/21/24 13:35 06/21/24 13:35 Urine Culture - Final Urine,Indwelling Cath Three types of organisms present, all high counts. Repeat collection recommended. No further identifications or sensitivities to follow. Laboratory Tests 06/21/24 12:00 Hgb 15.8 Plt Count 233 Potassium 3.3 L Creatinine 1.56 H Electrocardiogram Date: 06/21/24 Findings: + NSR @ (71 ) intraventricular conduction delay Echocardiogram Date: 02/17/23 EF: 60% LV Function: normal Other Findings: + LVH Valvular Disease: + no significant valvular disease
[2024-06-22] MEDS ORDERED: fentaNYL citrate PF 100 MCG/2 ML VIAL IV PRN (10:51)
[2024-06-22] MEDS ORDERED: ONDANSETRON INJ 2 MG/ML 2 ML VIAL IV PRN (10:51)
[2024-06-22] MEDS ORDERED: LABETALOL HCL IV 5 MG/ML 20ML IV PRN (10:51)
[2024-06-22] MEDS ORDERED: ATROPINE SULFATE 0.1 MG/ML 10ML SYR IV PRN (10:51)
--- NOTE | 2024-06-22 10:53 | Urology Consultation ---
Date of Consultation June 22, 2024 Assessment & Plan (1) Calculus of ureter: (2) Acute kidney injury: (3) Urinary tract infection: (4) Chronic indwelling Evans catheter: (5) Acute hypotension: (6) Acute confusion: (7) Neurogenic bladder: (8) Hematuria: (9) Nephrolithiasis: (10) Neurogenic bladder: (11) Quadriplegia: Plan Consultation for patient with severe stone disease obstructing stone likely infection with developing significant severe infection and chronic UTI/neurogenic bladder issues. Has catheter in place. Patient developed significant issues. Had known severe stone disease specifically on the right has also stones on the left. Repeat imaging had been completed and found to have obstructing stone on right with possible stones in the bladder. Large staghorn stone on the right side. Patient independently assessed, examined, interviewed, and evaluated. Patient's vitals and labs were all reviewed. Pertinent values in the HPI and plan section. Imaging was reviewed interpreted by myself. Agree with read. Severe stone disease with major stone burden on the right obstructing stone in the right ureter and possible stones in the bladder. Also stones on the left side. Vitals were reviewed. Blood pressure 180/79. Pulse 75. Respirations 16. Temp 36.5. Oxygen saturation 94% on room air. All labs and vitals were also reviewed including the creatinine of 1.56. White count 10.37. Hemoglobin 15.8. Patient had culture and concern for severe infection. Has been on broad-spectrum antibiotics. Discussed findings extensively with patient and family. Reviewed with consulting physicians/team as well as nursing and housestaff. Coordinate with the OR as well as anesthesiology for possible procedure. Patient's complicated medical and surgical history was reviewed and summarized above. Patient's surgical, medical, social, and family history were all reviewed with pertinent values as above. Discussed patient's current diagnosis as well as concerns and issues. Reviewed different options moving forward. Discussed potential risks and benefits as well as possible options and concerns. Reviewed potential surgical options and interventions. Discussed potential issues and concerns related to intervention. Risk and benefits were discussed extensively with patient and any available family. Discussed potential risks related to anesthesia. Discussed risks of bleeding infection and injury. Extensive review of options moving forward. With ongoing concern for infection large stone burden obstructing stone within the ureter possibly developing pyelo and possible stones within the bladder with chronic catheter in place secondary neurogenic bladder concern for worsening infection and significant increase in issues without adequate drainage. Risks and benefits discussed at length for procedure. These include bleeding, infection, injury to surrounding tissues or organs, and risks associated with anesthesia. Patient states understanding and agrees to proceed. Will sign consent and schedule. Plan for cystoscopy with possible bilateral retrograde pyelograms and stent placement. Possible cystolitholapaxy for bladder stone. Patient's complicated medical and surgical history was reviewed and surmise above all imaging was reviewed interpreted by myself all labs and vitals were reviewed with pertinent values in the plan or HPI section. Will plan to move forward with urgent procedure. Extensive review of patient's information greater than 90 minutes and interacting assessing evaluating patient as well as gathering information coordinating with care teams and moving forward with plans for likely intervention. History of Present Illness Attending Physician: Elisabet Downey MD History of Present Illness New consultation for patient with stone, discomfort, obstruction, and ill feelings. Well-known patient with significant issues related to stones has a large staghorn of the right kidney with bilateral stone disease. Patient is quadriplegic with severe recurrent stone disease recurrent infections and major bother. Patient was initially scheduled for a procedure yesterday however this was delayed due to possible issues with infection. Patient had undergone CT imaging yesterday which found an obstructing stone on the right distal ureter. Possible stones within the bladder. And concern for active infection. Patient had been admitted by the hospitalist team and was undergoing broad-spectrum antibiotic coverage. Patient does have issues with discomfort and pain with stones and drainage issues. Has had some episodes of sudden onset of pain into flank going down and radiating into groin and back in waves comes and goes. Can be severe at times. Discussed and reviewed patient's family history for any history of stone disease. Also, discussed patient's medical surgery history especially related to any history of urinary issues or stone disease. Patient was admitted and is undergoing observation. Allergies Allergy/AdvReac Type Severity Reaction Status Date / Time ciprofloxacin [Cipro] Allergy Intermediate rash Verified 06/18/24 12:07 diazepam Allergy Intermediate rash Verified 06/18/24 12:07 gentamicin Allergy Intermediate rash Verified 06/18/24 12:07 ibuprofen Allergy Intermediate rash Verified 06/18/24 12:07 NSAIDS (Non-Steroidal Allergy Intermediate rash Verified 06/18/24 12:07 Anti-Inflamma Quinolones Allergy Intermediate rash Verified 06/18/24 12:07 Aminoglycosides Allergy Unknown unknown Verified 06/18/24 12:07 Home Medications Medication Instructions Recorded Confirmed Type amlodipine 5 mg tablet (Norvasc) 5 mg PO DAILY HTN 03/22/19 06/21/24 History baclofen 20 mg tablet 20 mg PO QID MUSCLE SPASMS 03/22/19 06/21/24 History bisacodyl 10 mg rectal suppository 10 mg OK DAILY PRN CONSTIPATION 03/22/19 06/21/24 History furosemide 20 mg tablet 30 mg PO DAILY CHF 03/22/19 06/21/24 History gabapentin 300 mg capsule 300 mg PO TID NEUROPATHY 03/22/19 06/21/24 History loratadine 10 mg tablet 10 mg PO QAM ALLRGIES 03/22/19 06/21/24 History paroxetine HCl 30 mg tablet (Paxil) 30 mg PO QAM ANXIETY 03/22/19 06/21/24 History calcium citrate 1,000 mg PO DAILY 05/10/22 06/21/24 History cholecalciferol (vitamin D3) 50 50 mcg PO QAM 04/24/23 06/21/24 History mcg (2,000 unit) capsule (Vitamin D3) selenium sulfide 2.5 % lotion 1 applic topical UD PRN dandruff 04/24/23 06/21/24 History acetaminophen 325 mg tablet 650 mg PO Q4H PRN PAIN/FEVER 08/17/23 06/21/24 History (Tylenol) melatonin 3 mg tablet 3 mg PO HS PRN Sleep 08/17/23 06/21/24 History tizanidine 2 mg tablet 2 mg PO QAM 08/17/23 06/21/24 History tramadol 50 mg tablet 50 mg PO Q4H PRN Pain 08/17/23 06/21/24 History ketoconazole 2 % shampoo 1 ea topical UD 10/03/23 06/21/24 History polyethylene glycol 3350 17 17 g PO DAILY 10/03/23 06/21/24 History gram/dose oral powder (Miralax) tamsulosin 0.4 mg capsule 0.4 mg PO HS 10/03/23 06/21/24 History tizanidine 4 mg tablet 4 mg PO HS 10/03/23 06/21/24 History solifenacin 10 mg tablet (Vesicare) 10 mg PO DAILY #30 tabs 06/12/24 06/21/24 Rx Thera Silicone Skin Guard 1 applic topical BID prevention 06/18/24 06/21/24 History chlorthalidone 25 mg tablet 12.5 mg PO DAILY 06/18/24 06/21/24 History hydrocortisone-pramoxine 1 %-1 % 1 applic topical QID PRN Pain 06/18/24 06/21/24 History topical cream lisinopril 40 mg tablet 0 mg PO QAM 06/18/24 06/21/24 History calcium carbonate (Tums E-X) 300 mg PO TID PRN Indigestion 06/21/24 06/21/24 History camphor 4.7 %-eucalyptus oil 1.2 1 applic topical TID PRN Congestion 06/21/24 06/21/24 History %-menthol 2.6 % topical ointment (Vicks Vaporub) magnesium hydroxide 400 mg/5 mL 2,400 mg PO DAILY PRN Constipation 06/21/24 06/21/24 History oral suspension (Milk of Magnesia) sodium chloride 0.65 % nasal spray 2 spray intranasal QID PRN DRYNESS 06/21/24 06/21/24 History aerosol (Saline Mist) sodium phosphates 19 gram-7 118 ml OK DAILY PRN Constipation 06/21/24 06/21/24 History gram/118 mL enema (Fleet Enema) Patient History Medical History Gross hematuria Unspecified fracture of shaft of right tibia, subsequent encounter for closed fracture with routine healing Hypertensive heart disease without heart failure Personal history of urinary (tract) infections Weakness Quadriplegia, C1-C4 incomplete Sepsis, unspecified organism Personal history of other venous thrombosis and embolism Insomnia Other muscle spasm Hyperlipidemia Urine retention MRSA (methicillin resistant staph aureus) culture positive blood and urine cultures 02/2023 hospitalization [facility] resident resident of [facility] Depression Anxiety GERD (gastroesophageal reflux disease) Neurogenic bladder History of COVID-19 12/2021- no symptoms, resolved Recurrent UTI (urinary tract infection) Suprapubic catheter Situational depression Chronic pain Generalized/diffuse Central cord syndrome Spinal cord injury C4/5 Partial paralysis below shoulders Deep vein thrombosis LLE (after trauma/thrown off horse 2010), IVC placed Hypertension Surgical History S/P cystoscopy with ureteral stent placement w/laser destruction kidney stone; multiple History of urologic surgery left spermatocelectomy placement suprapubic catheter History of orthopedic surgery H/O hemorrhoidectomy Hx of surgical procedure Spermatocelectomy, left (08/05/19): LMA#5 at [facility]. No issues noted per post-op anesthesia progress note. 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 Quadriplegic. HEENT: Normocephalic Atraumatic. Inspection normal. Cranial Nerves 2-12 Grossly intact. Nares are clear. Neck is supple. Normal inspection of face. Normal inspection of neck. Neurologic: No deficits on inspection. Baseline for motor function and sensory. Psychologic: Normal affect. Respiratory: Nonlabored. No use of accessory muscles. No tachypnea or dyspnea. Cardiovascular: No tachycardia Skin: [place] and Dry. No rashes or visible lesions. Extremities: Baseline secondary to quadriplegia. Lymphatics: No edema Abdomen: Soft Non-distended. Obese. Suprapubic catheter in place. No rebound or guarding. Results & Data Vital Signs (Past 12 Hours) Vital Signs Temp Pulse Resp BP Pulse Ox O2 Del Method 06/22/24 08:04 36.5 C 75 16 180/79 H 94 Room Air PG Care Time/CCT Total # of Minutes Spent Total Time Spent with Patient: Total time spent is greater than 50% in coordination of care (as documented) at patient's floor/unit and/or counseling patient: Coding Level of Care Code 18376 INT INP/OBS CARE /75MIN Diagnoses Calculus of ureter N20.1 Acute kidney injury N17.9 Urinary tract infection N39.0 Chronic indwelling Evans catheter Z97.8 Acute hypotension I95.9 Acute confusion R41.0 Neurogenic bladder N31.9 Hematuria R31.9 Nephrolithiasis N20.0 Quadriplegia G82.50
[2024-06-22 11:08] LABS: Hematocrit (blood only) 40.7 % (42.0-52.0); Hemoglobin 13.3 g/dl (14.0-18.0); Mean Corpuscular Hemoglobin 29.1 pg (25.0-34.0); Mean Corpuscular Hgb Conc 32.7 g/dL (32.0-36.0); Mean Corpuscular Volume 89.1 fL (80.0-100.0); Mean Platelet Volume 10.4 fL (9.4-12.4); Platelet Count 181 K/uL (130-400); RDW Coefficient of Variation 12.9 % (11.5-14.5); RDW Standard Deviation 41.9 fL (36.4-46.3); Red Blood Count 4.57 M/uL (4.70-6.10); White Blood Count 6.83 K/ul (4.8-10.8)
[2024-06-22 11:20] LABS: BUN Creatinine Ratio 21.1 (10-20); Calcium 8.6 mg/dl (8.6-10.3); Creatinine Clr Calc Pharmacy 81.2 ml/min; Potassium 2.9 mmol/L (3.5-5.1)
--- NOTE | 2024-06-22 12:04 | Operative Report ---
PG Post Operative Report Pre & Post Diagnosis Bilateral stones, Bladder Stones, Neurogenic Bladder Same Operation Date: 06/22/24 10:30 <No data on this case meets the specified criteria> I identified the patient and participated in the time-out.: Yes Procedure Cystoscopy with bilateral retrograde pyelogram, Bilateral ureteral dilation, Bilateral stent placement Cystolithalopaxy Operation Date: 06/22/24 10:30 <No data on this case meets the specified criteria> Surgeon Mukund Velasquez, II, DO Liquid Yeast Supervisor None Estimated Blood Loss 1 Findings Consistent with Post-Op Diagnosis Severe inflammation throughout the trigone with areas of irritation and u lceration in the base and trigone region. Significant inflammation with ulceration around the left UO causing narrowing. Appears to be likely secondary to stones. Severe obstruction of the right ureter secondary to stones in the ureter. Multiple large flat stones within the bladder largest approximately 3.3 cm. Stones destroyed and extracted. Bilateral stents placed in good position. Specimens None Drains 7 [place] by 24 right 4.8 [place] by 24 left 20 [place] tip catheter Anesthesia Type MAC Complications none Disposition Disposition: Recovery Room Indications Patient with obstruction with severe stone disease including obstruction of the right ureter and multiple stones within the bladder. Neurogenic bladder. Patient dealing with significant infection. Risks and benefits discussed at length. Description of Procedure Patient was consented and brought back to the operating room. Patient was placed under anesthesia in the supine position and moved to the dorsal lithotomy position. Patient was prepped and draped in the regular sterile fashion. A time out was completed. A 30degree Cystoscope was placed into the bladder and the entire bladder was examined. The UO's were identified. Stones were discovered in the base of the bladder. A large flat stone was discovered in the dependent portion of the bladder. There was severe inflammation throughout the trigone and bladder neck multiple areas of mild bleeding with ulceration. Along the left UO there was severe inflammation and an ulcerated area. The left UO appeared to have been inflamed and partially blocked. The right UO did not appear to have any lesions or irregularities however did have severe inflammation coming from the trigone as well. The large stones were also appreciated. Some of the smaller stones were able to be irrigated clear and sent for analysis. The larger flat stones were unable to be grasped more irrigated through the scope. A wire was able to be entered into the left UO. The left UO was cannulized over the wire with a dual lumen catheter and a retrograde pyelogram was completed. The distal portion of the left ureter was found to be significantly narrowed. Appear to be mainly inflammatory largely coming from the ulcerated area near the left UO. This area was dilated to 10 [place]. A wire was placed and the catheter removed. With the wire in place, a 4.8 Fr Double J stent was placed. It was confirmed with fluoroscopy. Attention was then taken to the right side. A wire was able to be entered into the UO. There was significant issues advancing likely due to the obstructing stone in the distal ureter. The UO was also dilated up to 10 [place] on the side. A retrograde pyelogram was unable to be completed and the wire was able to be advanced. The wire was confirmed to be in the renal pelvis. The catheter was removed and the wire maintained. A 7 [place] double-J ureteral stent was then placed and confirmed with fluoroscopy. With both stents in good position and draining well attention was then taken to the large bladder stones. 1000 m laser fiber was selected. The stones were able to be fractured into smaller pieces. Once fracture the stone fragments were able to be irrigated clear. The entire bladder was inspected. There was multiple areas of inflammation throughout the bladder. No signs of major injury or other problems. The bleeding from the areas of ulceration and inflammation was found to be fairly minor. With the stones destroyed and extracted, the bladder was emptied. The scope was removed. The bladder was inspected a final time and failed. A wire was placed into the bladder to allow placement of the catheter. Over the wire a 20 [place] Evans catheter was placed. The patient was cleaned, aroused from anesthesia, and transferred to the pacu in stable condition having tolerated the procedure well with no complications. I was present and participated in all aspects of the procedure. The patient will be monitored in the PACU until transferred. Plan to maintain the stents bilaterally. Will await stone analysis. Will monitor with supportive care IV hydration and broad-spectrum antibiotics. Had plans to move forward with stone treatment with Dr. Barclay in the near future. Will likely be able to move forward with this once infection has been controlled. I attest to the content of the Intraoperative Record and any orders documented therein. Any exceptions are noted below.
--- NOTE | 2024-06-22 12:23 | Anesthesiology Progress Note ---
Date of Service June 22, 2024 Anesthesia Post Procedure Vital Signs Vital Signs: Temp Pulse Pulse Resp BP Pulse Ox O2 Del Method 06/22/24 12:20 60 12 111/73 96 Room Air 06/22/24 12:10 65 15 111/62 97 Oxymask 06/22/24 12:01 36.2 C L 65 18 98/58 L 96 Oxymask 06/22/24 08:04 36.5 C 75 16 180/79 H 94 Room Air 06/21/24 20:30 36.7 C 67 16 156/78 H 93 Room Air 06/21/24 17:29 37 C 66 16 146/86 H 94 Room Air 06/21/24 17:01 61 20 118/70 93 Room Air 06/21/24 15:00 65 20 134/73 98 Room Air 06/21/24 13:59 71 20 121/74 93 Room Air 06/21/24 13:22 77 18 151/90 H 94 Room Air O2 Flow Rate 06/22/24 12:20 06/22/24 12:10 4 06/22/24 12:01 4 06/22/24 08:04 06/21/24 20:30 06/21/24 17:29 06/21/24 17:01 06/21/24 15:00 06/21/24 13:59 06/21/24 13:22 Transfer of Care Handoff Completed per policy Notes Mental Status: alert / awake / arousable Patient Amnestic to Procedure: Yes Nausea / Vomiting: adequately controlled Pain: adequately controlled Airway Patency, RR, SpO2: stable & adequate BP & HR: stable & adequate Hydration State: stable & adequate Anesthetic Complications: no major complications apparent
[2024-06-22] MEDS: amLODIPine BESYLATE 5 MG TAB PO SCH (13:02)
--- NOTE | 2024-06-22 14:25 | Fluoroscopy Report ---
FL retrograde includes kub CLINICAL HISTORY: BILATERAL COMPARISON STUDY: CT of the abdomen and pelvis June 21, 2024 FLUOROSCOPY TIME: 67 seconds. Ka,r: 25.47 mGy FLUOROSCOPIC IMAGES: 5 FINDINGS: Fluoroscopy was provided during bilateral retrograde pyelograms and placement of bilateral ureteral stents. The stents are well positioned. IVC filter is incidentally noted. IMPRESSION: Fluoroscopy riding bilateral retrograde pyelograms and bilateral ureteral stent placemen t. ACT 112: Negative or not required by law. Electronically signed by: Elier Clemens M.D. 06/22/2024 2:24 PM
[2024-06-22] MEDS ORDERED: ACETAMINOPHEN 500 MG TAB PO PRN (15:11)
[2024-06-22] MEDS: CEFEPIME 2000MG 2,000 MG/20 ML SYR IV SCH (16:43)
[2024-06-22] MEDS: ACETAMINOPHEN 325 MG TAB PO PRN (20:36)
[2024-06-22 21:39] LABS: BUN Creatinine Ratio 18.3 (10-20); Calcium 8.6 mg/dl (8.6-10.3); Creatinine Clr Calc Pharmacy 73.7 ml/min; Potassium 3.2 mmol/L (3.5-5.1)
[2024-06-22] MEDS: HYDROmorphone INJ 0.5 MG/0.5 ML SYR IV STA (22:14)
--- NOTE | 2024-06-23 06:34 | Electrocardiogram Report ---
Test Reason : Blood Pressure : */* mmHG Vent. Rate : 71 BPM Atrial Rate : 71 BPM P-R Int : 162 ms QRS Dur : 138 ms QT Int : 410 ms P-R-T Axes : 26 -26 30 degrees QTcB Int : 445 ms Poor data quality, interpretation may be adversely affected Normal sinus rhythm Non-specific intra-ventricular conduction block Minimal voltage criteria for LVH, may be normal variant ( Paxton product ) Abnormal ECG When compared with ECG of 25-Mar-2019 12:34, No significant change was found Confirmed by Sarath Womack ([id number]) on 06/23/2024 6:34:09 AM Referred By: Confirmed By: Sarath Womack
[2024-06-23 08:29] LABS: Total Protein 6.5 gm/dl (6.0-8.3)
[2024-06-23 08:30] LABS: Albumin Globulin Ratio 1.2 (0.9-2); Albumin Level 3.5 gm/dl (3.4-5.0); BUN Creatinine Ratio 19.5 (10-20); Bilirubin,Total 0.5 mg/dl (0.2-1.0); Calcium 8.9 mg/dl (8.6-10.3); Potassium 3.5 mmol/L (3.5-5.1)
[2024-06-23 09:14] LABS: Basophils # (auto) 0.02 K/uL (0.00-0.20); Basophils % (auto) 0.3 %; Eosinophils # (auto) 0.21 K/uL (0.00-0.50); Eosinophils % (auto) 2.9 %; Hematocrit (blood only) 42.1 % (42.0-52.0); Hemoglobin 13.9 g/dl (14.0-18.0); Immature Granulocytes # (auto) 0.02 K/uL (0.01-0.20); Immature Granulocytes % (auto) 0.3 %; Lymphocytes # (auto) 0.68 K/uL (1.20-3.40); Lymphocytes % (auto) 9.5 %; Mean Corpuscular Hemoglobin 29.6 pg (25.0-34.0); Mean Corpuscular Volume 89.8 fL (80.0-100.0); Mean Platelet Volume 10.5 fL (9.4-12.4); Monocytes # (auto) 0.53 K/uL (0.11-0.59); Monocytes % (auto) 7.4 %; Neutrophils # (auto) 5.71 K/uL (1.40-6.50); Neutrophils % (auto) 79.6 %; Platelet Count 183 K/uL (130-400); RDW Coefficient of Variation 12.8 % (11.5-14.5); RDW Standard Deviation 42.2 fL (36.4-46.3); Red Blood Count 4.69 M/uL (4.70-6.10); White Blood Count 7.17 K/ul (4.8-10.8)
--- OUTSIDE RECORDS SUMMARY | 2024-06-23 13:53 | External Medical Summary | Continuity of Care Document ---
Author Name Unknown Organization [facility] [address] [id number] Care Team Providers Care Call Center Support Representative Name Role Phone Umang Childjess Shannon Primary Care Physician [phone] [id number] Date(s): 06/20/24 - 06/20/24 [facility] [address] [id number] Encounter Diagnosis Seborrheic keratoses(Discharge Diagnosis) - 06/20/24 Discharge Disposition: Home or Self Care Attending Physician: MD Abner, Kelvin Higgins Allergies, Adverse Reactions, Alerts Substance Criticality Severity Reaction Reaction Severity Status gentamicin hives and breathing difficulty Active ibuprofen Unable to assess criticality Moderate hives Active aminoglycoside antibiotics unknown Active Cipro rash on skin Active Valium rash Active quinolones (fluoroquinolone antibiotics) unknown Active NSAIDs unknown Active Assessment and Plan Extracted from: Title:Clinical Document Author:MD Abner, T chiquita Higgins Date:06/20/24 OUTPATIENT NOTE Name: Keven GERMAIN Patient Number:1 [id number] : 1950 Date of Service: 06/20/2024 _ Bin Germain returns for reevaluation. He notes a keratotic plaque present on the left lower back. He has clustered seborrheic keratoses on the lower back, but no large plaque is noted today. He has scattered seborrheic keratoses across the back, but none of these lesions are symptomatic. As such, they require no further treatment. He has a single seborrheic keratosis on the right forehead, but no evidence of actinic damage present there today. Review of systems medications allergies as noted on the chart. The patient is in stable health. He continues to stay at [facility]. Examination reveals pleasant well-nourished white male type I skin is alert and oriented x 3 with normal mood and affect. Examination of the head, neck, back, dorsal hands reveals the findings noted above, solar purpura on the dorsum of the hands and is otherwise unremarkable. The patient will return in 1 year for reevaluation. Medications acetaminophen 650 mg oral tablet Start: 05/04/11 7:36:00 PM EDT, 1 tab, PO, q8h, tab, PRN: as needed for pain Start Date: 05/04/11 Status: Ordered aspirin 81 mg oral delayed release tablet Start: 06/14/22 2:26:00 PM EST, 1 tab, PO, Daily Start Date: 06/14/22 Status: Ordered baclofen 20 mg oral tablet Start: 09/25/13 3:46:00 PM EDT, 1 tab, PO, qid Start Date: 09/25/13 Status: Ordered calcium carbonate Start: 11/02/14 10:20:11 AM EDT, 1,250 = mg, PO, tid Start Date: 11/02/14 Status: Ordered cefpodoxime 200 mg oral tablet Start: 07/21/23 8:08:00 AM EST, 2 tab, PO, q12h, Disp# 28 tab, other Start Date: 07/21/23 Stop Date: 07/28/23 Status: Ordered chlorthalidone 25 mg oral tablet Start: 06/20/24 3:07:00 PM EST, 1 tab, PO, Daily Start Date: 06/20/24 Status: Ordered Co Q-10 Start: 06/20/24 3:04:00 PM EST Start Date: 06/20/24 Status: Ordered Dulcolax Laxative 10 mg rectal suppository Start: 09/25/13 3:47:00 PM EDT, 1 supp, NH, Daily, PRN: as needed for constipation Start Date: 09/25/13 Status: Ordered Fleet Enema Extra Start: 06/20/24 3:05:00 PM EST Start Date: 06/20/24 Status: Ordered Flomax 0.4 mg oral capsule Start: 07/21/23 8:07:00 AM EST, 1 cap, PO, qhs Start Date: 07/21/23 Status: Ordered furosemide 20 mg oral tablet Start: 06/20/24 3:05:00 PM EST, 1 tab, PO, Daily Start Date: 06/20/24 Status: Ordered gabapentin 300 mg oral capsule Start: 05/04/11 7:38:00 PM EDT, 1 cap, PO, tid Start Date: 05/04/11 Status: Ordered ketoconazole 2% topical shampoo Start: 06/20/24 3:09:00 PM EST, 1 appl, topical Start Date: 06/20/24 Status: Ordered loratadine 10 mg oral capsule Start: 09/25/13 3:49:00 PM EDT, 1 cap, PO, Daily Start Date: 09/25/13 Status: Ordered Melatonin 5 mg oral tablet Start: 09/25/13 3:49:00 PM EDT, 1 tab, PO, qhs, PRN: Insomnia Start Date: 09/25/13 Status: Ordered Milk of Magnesia Start: 06/20/24 3:07:00 PM EST Start Date: 06/20/24 Status: Ordered MiraLax oral powder for reconstitution Start: 09/25/13 3:49:00 PM EDT, 17 g =, PO, q48h Start Date: 09/25/13 Status: Ordered Norvasc 5 mg oral tablet Start: 06/20/24 3:08:00 PM EST, 1 tab, PO, Daily Start Date: 06/20/24 Status: Ordered Norvasc 5 mg oral tablet Start: 11/28/14 3:43:00 PM EDT, 1 tab, PO, Daily Start Date: 11/28/14 Status: Ordered PARoxetine 30 mg oral tablet Start: 04/05/18 1:47:00 PM EDT, 1 tab, PO, Daily Start Date: 04/05/18 Status: Ordered selenium sulfide 2.5% topical lotion Start: 06/20/24 3:09:00 PM EST Start Date: 06/20/24 Status: Ordered simvastatin 20 mg oral tablet Start: 05/04/11 7:35:00 PM EDT, 1 tab, PO, qhs Start Date: 05/04/11 Status: Ordered tiZANidine 2 mg oral tablet Start: 07/21/23 8:07:00 AM EST, 1 tab, PO, Daily Start Date: 07/21/23 Status: Ordered tiZANidine 4 mg oral tablet Start: 11/02/14 7:43:00 AM EDT, 1 tab, PO, qhs Start Date: 11/02/14 Status: Ordered traMADol 50 mg oral tablet Start: 06/20/24 3:07:00 PM EST, 0.5 tab, PO, q4h, PRN: as needed for pain Start Date: 06/20/24 Status: Ordered Tums Start: 06/20/24 3:05:00 PM EST Start Date: 06/20/24 Status: Ordered VESIcare 10 mg oral tablet Start: 06/20/24 3:08:00 PM EST, 1 tab, PO, Daily Start Date: 06/20/24 Status: Ordered Vicks VapoRub Start: 06/20/24 3:06:00 PM EST Start Date: 06/20/24 Status: Ordered Vitamin B Complex Start: 06/09/20 1:04:00 PM EST, 1 tab, PO, Daily Start Date: 06/09/20 Status: Ordered Vitamin C 500 mg oral capsule Start: 06/09/20 1:05:00 PM EST, 1 cap, PO, Daily Start Date: 06/09/20 Status: Ordered Vitamin D3 1000 intl units oral capsule Start: 09/25/13 3:51:00 PM EDT, 1 cap, PO, Daily Start Date: 09/25/13 Status: Ordered zinc (as gluconate) 50 mg oral tablet Start: 06/09/20 1:05:00 PM EST, 1 tab, PO, Daily Start Date: 06/09/20 Status: Ordered Problem List Condition Confirmation Course Effective Dates [...] Effective Dates Health Status Clinical Service Informant Seborrheic keratoses Discharge Diagnosis 06/20/24 Procedures Procedure Date Related Diagnosis Body Site [...] Status Never smoked cigaret kaela Sex Male Sex Representation Male (finding) Implantable Device List Procedure Provider Procedure Date Device Type Site Unknown Unknown 07/20/23 Unknown Unknown Device Identifier Serial Number Lot or Batch Number Manufacturing Date Expiration Date Distinct Identification Code MRI Safety Implantable Status Assigning Authority Unknown Unknown [id number] Unknown 01/17/26 Unknown Unknown Active Unknown Outpatient Note * MD Abner, Kelvin Higgins: PERFORM Event Display: .Outpt Note Authored Date: [id number] OUTPATIENT NOTE Name: Keven GERMAIN Patient Number:1 [id number] : 1950 Date of Service: 06/20/2024 _ Bin Germain returns for reevaluation. He notes a keratotic plaque present on the left lower back. He has clustered seborrheic keratoses on the lower back, but no large plaque is noted today. He has scattered seborrheic keratoses across the back, but none of these lesions are symptomatic. As such, they require no further treatment. He has a single seborrheic keratosis on the right forehead, but no evidence of actinic damage present there today. Review of systems medications allergies as noted on the chart. The patient is in stable health. He continues to stay at [facility]. Examination reveals pleasant well-nourished white male type I skin is alert and oriented x 3 with normal mood and affect. Examination of the head, neck, back, dorsal hands reveals the findings noted above, solar purpura on the dorsum of the hands and is otherwise unremarkable. The patient will return in 1 year for reevaluation. Electronic Signature on File Electronically Reviewed/Signed by: Kelvin Levine MD Author Signature Dt/Tm:06/20/2024 03:30 PM Department of Dermatology [facility] Patient Care team information Care Team Personnel Name: Peg Aparicio Amy E Position: Pharmacist Member Role: Pharmacy - Lifetime Address: [address] [place] [address] [place] Name: MD Child Rodney M Position: Referring Member Role: Primary Care Provider Address: [address] [place] [id number] [place] Name: Peg Watson Kyle Position: Pharmacist Member Role: Pharmacy - Lifetime Address: [address] [place] [address] Care Team Related Persons Name: KELVIN TAYLOR Name: RYAN GERMAIN Name: ELIZABETH GERMAIN
[2024-06-23] MEDS: bisacodyL 10 MG SUPP PR PRN (15:11)
--- NOTE | 2024-06-23 16:01 | Hospitalist Progress Note ---
Date of Service June 23, 2024 Assessment & Plan (1) Urinary tract infection: Plan: Symptoms of AMS and hypotension x 1 day, no other complaints w/ exception of urine appearing darker than normal per ; Chronic catheterization - UA show turbid appearance, 2+ protein, 2+ blood, positive nitrate, 3+ LE, presence of WBC RBC, hyaline cast, 2+ bacteria - UCx showing multiple organisms, repeat UA ordered post-op - History of Pseudomonas colonization, per - Continue cefepime 2 g IV - CTAP 8x3 millimeters distal right ureteral stone without hydronephrosis, large staghorn stone in right kidney with inflammation in right renal pelvis, bladder inflamed, Evans catheter balloon inflated in the prostatic urethra - No current fever or leukocytosis - Urology consulted - s/p stent placement and stone removal. Has large stone burden. 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 - Wheelchair - Skin checks, weight changes - Muscle spasms- Baclofen, gabapentin, Tizanidine (5) Calculus of ureter: Plan: See #1 Plan Anxiety- Paroxetine H/o DVT- LLE, 2010; 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 74 year old with incomplete quadriplegia present to the ER with worsening weakness, confusions and diaphoresis No concerns this. Comfortable. No distress. Indwelling catheter in place. Clear urine. UTI with ureterolithiasis - chronic urinary catheter. Suprapubic catheter removed recently and indwelling cath placed. s/p cystoscopy (06/22) - bilateral retrograde pyelogram, Bilateral ureteral dilation, Bilateral stent placement, Cystolithalopaxy Normal WBC. No fever -continue IV cefepime (significant h/o pseudomonas). 3 organism growing in urine cx - recheck pending. blood cx neg. -tylenol and tramadol for pain control TORY - resolved Hypok - on chlorthalidone and lasix - on hold. -monitor. Acute hypotension - resolved Metabolic encephalopathy - resolved. Hx of DVT - IVC in place. Quadraplegia - frequent turns to prevent decubitus Overactive bladder - continue home meds. HTN/Chronic pain - home meds. Heparin SQ Subjective Patient seen and evaluated at bedside this morning. No acute events overnight. Had some pain, received 0.25 of Dilaudid. No acute concerns this morning. Review of Systems Review of Systems: reviewed, per HPI Physical Exam Physical Exam: Constitutional: well-appearing, no acute distress HEENT: NCAT, no conjunctival injection CV: regular rhythm, no murmur appreciated, extremities well-perfused, no LE edema Resp: CTABL, no wheezes/rales/rhonchi appreciated, no increased work of breathing GI: nondistended MSK: contractures of b/l UE Skin: warm, dry, no rash appreciated : suprapubic catheter in place Neuro: alert, oriented, quadriplegia Results & Data Results & Data Vital Signs (Past 12 Hours) Vital Signs Temp Pulse Resp BP BP Pulse Ox O2 Del Method 06/23/24 15:45 37.2 C 73 16 156/61 H 93 Room Air 06/23/24 14:12 37.1 C 70 18 156/63 H 93 Room Air 06/23/24 11:03 Room Air 06/23/24 07:34 36.7 C 70 12 154/76 H 161/82 H 90 Room Air Resident Activity Tracking Resident Involvement: Resident Care Provided Care Provided: Adult Hospital Medicine
[2024-06-23 20:24] VITALS: O2SAT 95
[2024-06-23] MEDS: HEPARIN SOD 5,000 UNIT/0.5 ML VIAL SQ SCH (21:14)
[2024-06-24 05:48] VITALS: BP 165/83; PULSE 65; RESP 16; TEMP 98.4
--- NOTE | 2024-06-24 09:47 | Urology Progress Note ---
Date of Service June 24, 2024 Assessment & Plan (1) Neurogenic bladder: (2) Calculus of ureter: (3) Nephrolithiasis: (4) Urinary tract infection: Plan: - Pt POD#2 s/p Cystoscopy with bilateral retrograde pyelogram, Bilateral ureteral dilation, Bilateral stent placement; Cystolithalopaxy with Dr. Velasquez - Generally doing well post procedure. - Afebrile, lab work reviewed - creatinine 1.18, WBC 7.17. - Blood cultures with no growth to date. - Urine culture did not identify any specific bacteria. - Tolerating bilateral ureteral stent with minimal bother. - Recommend continue with his established bowel regimen. - Okay to d/c from perspective when medically stable. - Expected clinical course reviewed, all questions answered. - Keep scheduled ureteroscopy and right stone treatment with Dr. Barclay as scheduled. - Continue supportive care, antibiotics and medical management per hospital medicine service. - will follow peripherally, please contact our service with any additional questions or concerns. Admission and Anticipated Discharge Date Admission Date: June 21, 2024 Subjective Patient seen and examined at bedside this morning. No acute issues overnight. No flank pain. He reports abdominal distention and last bowel movement was 4 days ago. He typically has a suppository daily for bowel regimen. No fever, chills, nausea or vomiting. Review of Systems Constitutional: as per Subjective / HPI Genitourinary: + as per Subjective / HPI Physical Exam Constitutional: no acute distress Respiratory: normal respiratory effort; no respiratory distress and no labored breathing Musculoskeletal: Head/Neck/Chest: normocephalic Neurologic: awake Psychiatric: Orientation: alert and oriented x 3 Genitourinary: Evans intact Results & Data Vital Signs (Past 12 Hours) Vital Signs Temp Pulse Resp BP Pulse Ox O2 Del Method 06/24/24 05:47 36.9 C 65 16 165/83 H 95 Room Air PG Care Time/CCT Total # of Minutes Spent Total Time Spent with Patient: Total time spent is greater than 50% in coordination of care (as documented) at patient's floor/unit and/or counseling patient: Coding Level of Care Code 61372 SUB INP/OBS CARE 1/25MIN Diagnoses Neurogenic bladder N31.9 Calculus of ureter N20.1 Nephrolithiasis N20.0 Urinary tract infection N39.0
--- NOTE | 2024-06-24 10:55 | Hospitalist Progress Note ---
Date of Service June 24, 2024 Assessment & Plan (1) Urinary tract infection: Plan: Symptoms of AMS and hypotension x 1 day, no other complaints w/ exception of urine appearing darker than normal per ; Chronic catheterization - UA show turbid appearance, 2+ protein, 2+ blood, positive nitrate, 3+ LE, presence of WBC RBC, hyaline cast, 2+ bacteria - UCx showing multiple organisms, repeat UA ordered post-op - History of Pseudomonas colonization, per - Continue cefepime 2 g IV - CTAP 8x3 millimeters distal right ureteral stone without hydronephrosis, large staghorn stone in right kidney with inflammation in right renal pelvis, bladder inflamed, Evans catheter balloon inflated in the prostatic urethra - No current fever or leukocytosis - Urology consulted - s/p stent placement and stone removal. Has large stone burden. 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 - Wheelchair - Skin checks, weight changes - Muscle spasms- Baclofen, gabapentin, Tizanidine (5) Calculus of ureter: Plan: See #1 Plan Anxiety- Paroxetine H/o DVT- LLE, 2010; 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 No acute issues overnight. No flank pain. He reports abdominal distention and last bowel movement was 4 days ago. He typically has a suppository daily for bowel regimen. No fever, chills, nausea or vomiting. Results & Data Results & Data Vital Signs (Past 12 Hours) Vital Signs Temp Pulse Resp BP Pulse Ox O2 Del Method 06/24/24 05:47 36.9 C 65 16 165/83 H 95 Room Air
--- NOTE | 2024-06-24 13:26 | Discharge Summary ---
Date of Service June 24, 2024 Admission HPI Per Admitting Provider 71-year-old male presenting to ED after being in outpatient urology appointment noted to have hypotension and "not himself." ED course: CBC 85.60 lymphocytes 0.8, monocytes 0.77; CMP potassium 3.3, carbon dioxide 37, BUN 25, creatinine 1.56; troponin 12.3; procalcitonin 0.16; UA turbid appearance, 2+ protein, 2+ blood, positive nitrate, 3+ LE, presence of WBC RBC, hyaline cast, 2+ bacteria; CXR no acute abnormalities in particular no evidence of pneumonia; EKG NSR, rate around 70 bpm. Provided with cefepime and NSS in ED. Patient is a 74-year-old quadriplegic male PMHx neurogenic bladder, HLD, HTN, and history of DVT who presents for episode of hypotension and for being "not himself". helps to provide the entirty of the history. States that the night prior to arrival, the patient [facility] and noted to be confused by staff. Reportedly lingered into the day of arrival, and was found to be hypotensive during outpatinet appointment. Had not been complaining of any other symptoms, per . States that he does have a chronic catheter, initially was suprapubic now urethral. Was inserted 1.5 to 2 weeks ago, has not been changed since. states every time that the patient uses urethral catheter, he tends to get a UTI following this. Does have colonized urine in his bladder. Otherwise no reports of fever/chills, shortness of breath, or urinary symptoms. Received all a.m. medications. Please see Dr. Davis's attestation for adjustments/additions to treatment plan. Admission Exam Per Admitting Provider General: No acute distress; Sleeping at time of visit Skin: Warm and dry Head: Normocephalic, atraumatic Eyes: Wearing glasses ENT: External ear and ear canal without swelling; nose atraumatic; good dentition, tongue normal appearance Neck: Supple, no LAD Cardio: RRR, no M/G/R, S1 and S2 normal Resp: No respiratory distress, Lungs CTA in all lobes bilaterally, no wheezes, rales, or rhonchi Abdomen: Soft, symmetric, nontender; No masses or hepatosplenomegaly; Bowel sounds normoactive MSK: No deformities; pulses palpable and equal; no edema. Neuro: Sleeping; quadriplegic,shoulders down Psych: Sleeping Principal Diagnosis Nephrolithiaisis Discharge Exam Constitutional: well-appearing, no acute distress HEENT: NCAT, no conjunctival injection CV: regular rhythm, no murmur appreciated, extremities well-perfused, no LE edema Resp: CTABL, no wheezes/rales/rhonchi appreciated, no increased work of breathing GI: Distended, and mild tenderness in hypogastric region MSK: contractures of b/l UE Skin: warm, dry, no rash appreciated : suprapubic catheter in place Neuro: alert, oriented, quadriplegia Discharge Data Allergies Allergy/AdvReac Type Severity Reaction Status Date / Time ciprofloxacin [Cipro] Allergy Intermediate rash Verified 06/18/24 12:07 diazepam Allergy Intermediate rash Verified 06/18/24 12:07 gentamicin Allergy Intermediate rash Verified 06/18/24 12:07 ibuprofen Allergy Intermediate rash Verified 06/18/24 12:07 NSAIDS (Non-Steroidal Allergy Intermediate rash Verified 06/18/24 12:07 Anti-Inflamma Quinolones Allergy Intermediate rash Verified 06/18/24 12:07 Aminoglycosides Allergy Unknown unknown Verified 06/18/24 12:07 Consultations 06/21/24 13:12 ED Decision to Admit Stat 06/21/24 18:21 Consult Urology Routine Procedures Performed Operation Date: 06/22/24 10:30 Actual Procedures p Cystoscopy, Bilateral Retrograde Pyelograms, Bilateral Stent Insertions, and (Left) - Mukund Velasquez DO s Cystolithopaxy(Left) - Mukund Velasquez DO Ordered Studies 06/21/24 16:03 CT abd pelvis wo con Stat 06/22/24 FL retrograde includes kub Routine Hospital Course (1) Urinary tract infection: - Presented w/ AMS and hypotension, clinically concerning for sepsis Source: UTI vs obstructing nephrolithiasis - Abnormal UA on presentation, urine cultures w/ no specific organisms to date Known history of Pseudomonas UTIs - Cefepime started on admission, clinically improved w/o evidence of Pseudomonas infection on culture Transition to Cefpodoxime 200 mg BID for 10 days upon discharge Follow up with PCP within the week (2) Calculus of ureter: - CTAP 8x3 millimeters distal right ureteral stone without hydronephrosis, large staghorn stone in right kidney with inflammation in right renal pelvis, bladder inflamed, Evans catheter balloon inflated in the prostatic urethra - Large stone burden potential cause for septic presentation - Patient now POD#2 from Urology intervention S/p stent placement and stone removal, large stone burden remains - Maintenance fluids given inpatient - Continue antibiotics as outpatient: Cefpodoxime 200mg PO BID for 10 days - Followup with urologists in Monday. (3) Acute hypotension: - Patient hypotensive on presentation, now resolved - Received NSS in ED d/t concern for sepsis - Restart home antihypertensives upon discharge from hospital - Follow up with PCP in 1 week to check BP return to baseline Per , ranges 140-150 SBP at home (4) Acute kidney injury: - Resolved - Return to home Furosemide/Chlorthalidone - Recheck BMP at PCP follow up (5) Quadriplegia: - Incomplete quadriplegia (C4 lesion), s/p 2011 trauma - Skin checks, weight changes - Muscle spasms: continue home Baclofen, gabapentin, Tizanidine Plan Chronic Conditions - return to home medications as previously prescribed Dispo: Home @ [facility], PCP & Urology follow up Diet: Heart healthy VTE Prophylaxis: IVC in place, SCDs - h/o hematuria, no chemical prophylaxis upon discharge Code: Full Total Time Total Time Spent Total Time Spent (In Minutes): See attending attestation Discharge Plan Discharge Items Patient Disposition: Home - Self-Care Reason For Visit: UTI W/ AMS Discharge Diagnosis: 1. Nephrolithiasis Condition on Discharge: Good Activity: Per Instructions section Non-emergency contact: Primary Care Provider and Urologist Call non-emergency contact if: you have any medication questions, your symptoms worsen and you have a fever Follow-up/Referrals: Mukund Velasquez DO [Physician] - (SPOKE WITH OFFICE, FAISAL, WILL CONTACT PATIENT FOR HOSPITAL FOLLOW UP VISIT.) Dang Pritchett DO [Primary Care Provider] - Diet: Regular Addtl Attending Provider Instructions: You came into the hospital for low blood pressure and not acting like yourself at home. You were found to have many kidney stones which required surgical intervention by Urology. It was suspected that your low blood pressure was related to sepsis, because of this you were started on antibiotics when you were admitted. After your surgical procedure, your vital signs improved and during your admission your urine cultures did not show any sign of infection. Because of how sick you were when you came into the hospital, it is best to continue with oral antibiotics when you leave the hospital. We will send you with ten days of Cefpodoxime. Please take 200 mg twice daily for 10 days. No additional changes were made to your home medications. Please continue home medications as previously ordered. If your symptoms return or you develop a fever, please contact your PCP or return to the ED. Pending Studies at Discharge: No Stand-Alone Forms: My [facility], Smoking Cessation Medications and DC Order Prescriptions: New cefpodoxime 200 mg tablet 200 mg PO BID 10 Days Qty: 20 0RF Rx Instructions: must administer with a meal/food Continued solifenacin [Vesicare] 10 mg tablet 10 mg PO DAILY Qty: 30 2RF amlodipine [Norvasc] 5 mg Tablet 5 mg PO DAILY Rx Instructions: Hold if systolic is less than 90 baclofen 20 mg Tablet 20 mg PO QID Rx Instructions: At 06:01 am, 12:01 pm, 06:01 pm, and 09:01 pm bisacodyl 10 mg Suppository 10 mg GA DAILY PRN (Reason: CONSTIPATION) Rx Instructions: HOLD FOR LOOSE STOOLS paroxetine HCl [Paxil] 30 mg Tablet 30 mg PO QAM gabapentin 300 mg Capsule 300 mg PO TID Rx Instructions: Daily at 09:01 am, 01:01pm and 05:01 pm furosemide 20 mg Tablet 30 mg PO DAILY loratadine 10 mg Tablet 10 mg PO QAM cholecalciferol (vitamin D3) [Vitamin D3] 50 mcg (2,000 unit) Capsule 50 mcg PO QAM selenium sulfide 2.5 % lotion 1 applic TOPICAL UD PRN (Reason: dandruff) Rx Instructions: every monday, , and monday to head calcium citrate 250 mg calcium Tablet 1,000 mg PO DAILY Rx Instructions: At 09:01 am hydrocortisone-pramoxine 1-1 % Cream 1 applic TOPICAL QID PRN (Reason: Pain) Rx Instructions: allow at least 3 hours between applications chlorthalidone 25 mg tablet 12.5 mg PO DAILY lisinopril 40 mg tablet 0 mg PO QAM Rx Instructions: List from nursing facility not clear on if this medication is still dispensed or not. Original Directions: 40mg by mouth daily Thera Silicone Skin Guard 1 applic topical BID Rx Instructions: Apply to scrotum Tums E-X 300 mg (750 mg) Tablet,Chewable 300 mg PO TID PRN (Reason: Indigestion) magnesium hydroxide [Milk of Magnesia] 400 mg/5 mL Suspension 2,400 mg PO DAILY PRN (Reason: Constipation) Rx Instructions: Give on day 4 of no BM Fleet Enema 19-7 gram/118 mL Enema 118 ml GA DAILY PRN (Reason: Constipation) Saline Mist 0.65 % Aerosol,Makoti 2 spray INTRANASAL QID PRN (Reason: DRYNESS) Vicks Vaporub 4.7-1.2-2.6 % Ointment 1 applic TOPICAL TID PRN (Reason: Congestion) acetaminophen [Tylenol] 325 mg Tablet 650 mg PO Q4H MDD 3 GRAMS APAP/24 HOURS PRN (Reason: PAIN/FEVER) tizanidine 2 mg Tablet 2 mg PO QAM melatonin 3 mg Tablet 3 mg PO HS PRN (Reason: Sleep) tramadol 50 mg Tablet 50 mg PO Q4H PRN (Reason: Pain) ketoconazole 2 % Shampoo 1 ea TOPICAL UD Rx Instructions: during hair washing on shower days-,,sat tizanidine 4 mg Tablet 4 mg PO HS tamsulosin 0.4 mg Capsule 0.4 mg PO HS polyethylene glycol 3350 [Miralax] 17 gram/dose Powder 17 g PO DAILY Rx Instructions: Hold for loose stools Discharge Orders: Discharge Order (Routine); Ordered 06/24/24 Ordered By: Marco Cazares/Other Patient Handouts: Kidney Stone Ureteroscopy, Preventing Kidney Stones Admission Data Admit Date/Time: 06/21/24 15:26 Attending Provider: Meño aGrcia Admit Provider: Suhail Davis Primary Care Provider: Dang Pritchett Other Providers: Suhail Davis; Mukund Velasquez Other Interventions: Discharge Summary Assessment (RN) Last Done: 06/24/24 14:58 Supervising Physician Co-Signing Physician Notes I personally examined the patient and verified all thompson points of history and exam, discussed case, and agree with decision making with Dr Quinn Feels more or less at his baseline. Definitely feels safe getting out of the hospital. No new complaints. Vitals noted, in general he is awake and alert pleasant no distress. HEENT normocephalic atraumatic mucous membranes moist. Breathing unlabored no accessory muscle use good effort. Skin shows no rashes no pallor or icterus. UTI with ureterolithiasis - chronic urinary catheter. Suprapubic catheter removed recently and indwelling cath placed. s/p cystoscopy (06/22) - bilateral retrograde pyelogram, Bilateral ureteral dilation, Bilateral stent placement, Cystolithalopaxy Normal WBC. No fever - Had been on cefepime due to concern of prior pseudomonal historycultures not showing any meaningful growth here, and I do wonder if his symptoms were entirely due to the stones and not infection; at the same time hard to rule out finish out a course of antibioticsbut does not appear to need pseudomonal coverage TORY - resolved follow-up labs as an outpatient Hypok - follow-up labs as outpatient Acute hypotension - resolved Metabolic encephalopathy - resolved. Hx of DVT - IVC in place. Quadraplegia - frequent turns to prevent decubitus Overactive bladder - continue home meds. HTN/Chronic pain - home meds. Heparin SQ utilized during his stay safe/stable for return to SNF Resident Activity Tracking Resident Involvement: Resident Care Provided Care Provided: Adult Hospital Medicine
[2024-06-24] MEDS: POLYETHYLENE (MIRALAX) 17 GM PACK PO SCH (14:55)
--- NOTE | 2024-06-24 18:46 | Billing Data ---
Date of Service June 24, 2024 Coding Level of Care Code 68908 IN/OBS DISCH 30 MIN/LESS
--- OUTSIDE RECORDS SUMMARY | 2024-06-24 20:44 | External Medical Summary | Continuity Of Care Document ---
Author Name Unknown Address [address] [place] [address] Organization [facility] () Care Team Providers Care Director Of Therapy Services Name Role Phone DO Pritchett Amy Primary Care Provider [phone] Allergies Allergy Reaction Start Date End Date Status AMINOGLYCOSIDES Active CIPRO Active GENTAMICIN Active NSAIDS (NON-STEROIDAL ANTI-INFLAMMATORY DRUG) 0 Active IBUPROFEN Active QUINOLONES Active VALIUM Active Medications Medication Instructions Dosage Start Date End Date Status Order Date Drug Code Frequency Route of Admin Diagnosis Code Substitutions Allowed Spikevax [id number](1 2y up)(PF) 50 mcg/0.5 mL intramuscul ar suspension [COVID [id number](12 up)(andu)(P F)] 0.5mL Intramuscular 1 time Monitory 15 Minutes post injection for adverse effects; record site/temp For COVID 19 PREVENTION 0.5mL 01/02 Inactiv e 2023 42609 70563 4 1 time Intram uscula r False [facility] - Nurse initials indicate verificatio n that [id number] vaccine was administere d by [facility] jon 1 Intramuscular 1 time ( Indicate vaccine type) For vaccine 1 05/03 Inactiv e 2023 1 time Intram uscula r False Lisinopril 40 mg tablet [generic] TAKE ONE (1) TABLET BY MOUTH IN THE MORNING. For DX- HTN 1 2023 Active 2023 39589 51748 1 Once daily By Mouth False Tizanidine 2 mg tablet [generic] TAKE ONE (1) TABLET BY MOUTH ONCE DAILY For MUSCLE SPASM 1 2023 Active 2023 61883 59033 0 Once daily By Mouth M62.838 False Tamsulosin 0.4 mg capsule [generic] TAKE (1) CAPSULE BY MOUTH AT BEDTIME For SPASMS 1 2023 Active 2023 24649 73634 0 Once daily By Mouth False Aspirin 81 mg tablet Once daily 1 TABLET BY MOUTH IN THE MORNING For DX- CAD DO NOT CRUSH, CHEW OR BREAK 81 mg 06/12 Inactiv e 2023 Once daily By Mouth False Baclofen 20 mg tablet [generic] 20 mg By Mouth 4 times a day For DX- MUSCLE SPASMS 20 mg 12/12 Inactiv e 2023 30926 25274 1 4 times a day By Mouth False Calcium citrate 250 mg tablet Once daily 4 TABLET BY MOUTH For DX- SUPPLEMENT 250 mg calci 12/12 Inactiv e 2023 Once daily By Mouth False Co Q-10 100 mg capsule 100 mg By Mouth Once daily For DX- SUPPLEMENT 100 mg 06/20 Inactiv e 2023 67244 37775 5 Once daily By Mouth False Furosemide 20 mg tablet [generic] 20 mg By Mouth Once daily For DX-CHF 20 mg 12/12 Inactiv e 2023 50364 54216 0 Once daily By Mouth False Gabapentin 300 mg capsule [generic] 300 mg By Mouth 3 times a day For DX- NEUROPATHY 300 mg 12/12 Inactiv e 2023 90608 66898 4 3 times a day By Mouth False Loratadine 10 mg tablet [generic] 10 mg By Mouth Once daily For DX- ALLERGIES 10 mg 2023 Active 2023 07754 04707 1 Once daily By Mouth False Miralax 17 gram/dose oral powder 17 gram/dose By Mouth IN THE MORNING Mix 1 TABLESPOON IN 8 OZ OF FLUID HOLD FOR LOOSE STOOLS For DX- CONSTIPATION 17 gram/do se 12/12 Inactiv e 2023 89168 43828 0 Once daily By Mouth False Paroxetine 30 mg tablet [generic] 30 mg By Mouth Once daily For DX- DEPRESSION 30 mg 2023 00/00 /0000 Active 2023 49010 25290 3 Once daily By Mouth False Potassium citrate ER 15 mEq (1,620 mg) tablet,exte nded release [generic] 15 mEq By Mouth 3 times a day For DX- SUPPLEMENT/DI URETIC USE/ HYPOCITRAUIRA DO NOT CRUSH 15 mEq 12/12 Inactiv e 2023 35518 42143 1 3 times a day By Mouth False POTASSIUM CL 20MEQ ER TAB By Mouth 3 times a day TAKE 1 TABLET BY MOUTH THREE TIMES DAILY For DX- SUPPLEMENT DO NOT CRUSH 100 % 12/12 Inactiv e 2023 3 times a day By Mouth False Selenium sulfide 2.5 % lotion [generic] APPLY TOPICALLY TO HEAD THREE TIMES WEEKLY ON SHOWER DAYS. (TUES, THURS, SAT) For DX- DANDRUFF 12/12 Inactiv e 2023 92469 72977 4 3 times a week Topica l False Acetaminoph en 325 mg tablet [generic] TAKE 2 TABS (650MG) BY MOUTH EVERY 4 HOURS NEEDED FOR TEMP >100 NOT TO EXCEED 3GM/24HRS TAKE 2 TABS (650MG) BY MOUTH EVERY 4 HOURS NEEDED FOR TEMP >100 NOT TO EXCEED 3GM/24HRS For DX-FEVER 2 12/12 Inactiv e 2023 88066 27436 0 By Mouth False MILK OF MAGNESIA ADMINISTER 30 ML BY MOUTH ONCE DAILY NEEDED FOR CONSTIPATION X3 DAYS WITH NO BM. For DX- CONSTIPATION 30ML 12/12 Inactiv e 2023 78560 25164 9 By Mouth False Enema Disposable 19 gram-7 gram/118 mL ADMINISTER ONE ENEMA RECTALLY ONCE DAILY NEEDED FOR CONSTIPATION ON DAY 6 OF NO BM For DX- CONSTIPATION 12/12 Inactiv e 2023 24816 38641 1 Rectal False TUMS EXTRA STR 750MG TAKE (1) TABLET BY MOUTH THREE TIMES DAILY NEEDED FOR INDIGESTION For DX- INDIGESTION 1 12/12 Inactiv e 2023 01400 51560 8 By Mouth False Vitamin D3 25 mcg (2000 unit) capsule [Cholecalci ferol (vitamin D3)], By Mouth Once daily *DO NOT CRUSH For DX- SUPPLEMENT 25 mcg (2,00 2023 00/00 /0000 Active 2023 Once daily By Mouth False Dulcolax (bisacodyl) 10 mg rectal suppository ONE SUPPOSITORY PER RECTUM PRN ONE TIME DAILY IF MILK OF MAGNESIA INEFFECTIVE. ON DAY 5 OF NO BM. DX- CONSTIPATION 10 mg 12/12 Inactiv e 2023 41641 15790 1 Rectal False Melatonin 3 mg tablet [generic] 3 mg By Mouth As Needed For DX-INSOMMIA 3 mg 12/12 Inactiv e 2023 07903 43208 8 By Mouth False Hydrocortis one 1 % topical cream [generic] 1 % Topical As Needed For DX- PAIN 1 % 12/12 Inactiv e 2023 98130 91893 1 Topica l False HYDROCORTIS ONE/PARMOXI NE Rectal As Needed 1 APPLICATION PER RECTUM For DX- HEMORRHOID 12/12 Inactiv e 2023 Rectal False SALINE MIst 0.65 % nasal spray aerosol 2 Nares As Needed For DX- DRY NOSTRILS 2 12/12 Inactiv e 2023 Nares False Tramadol 50 mg tablet [generic] 50 mg By Mouth Every 4 hours as needed For DX- PAIN 5-10 50 mg 12/20 Inactiv e 2023 28557 71943 0 Every 4 hours as needed By Mouth False Tylenol 325 mg tablet 325 mg By Mouth Every 4 hours as needed For DX- PAIN PRN FOR MILD PAIN, DO NOT EXCEED 3000MG APAP/24 HOURS 325 mg 12/20 Inactiv e 2023 34780 40497 0 Every 4 hours as needed By Mouth False Baclofen 20 mg tablet [generic] 20 mg By Mouth 4 times a day For MUSCLE SPASMS 20 mg 12/20 Inactiv e 2023 75797 79964 1 4 times a day By Mouth False Calcium citrate 250 mg tablet [generic] Once daily TAKE 4 TABLETS (1000MG) BY MOUTH For SUPPLEMENT 1000 MG 2023 Active 2023 45449 60734 6 Once daily By Mouth False Dulcolax (bisacodyl) 10 mg rectal suppository 10 mg Rectal Once daily For CONSTIPATION *MAY HOLD FOR LOOSE STOOLS* 10 mg 2023 Active 2023 80149 51324 1 Once daily Rectal False Gabapentin 300 mg capsule [generic] 300 mg By Mouth 3 times a day For NEUROPATHY 300 mg 2023 Active 2023 23294 22829 4 3 times a day By Mouth False Potassium citrate ER 15 mEq (1,620 mg) tablet,exte nded release [generic] 15 mEq By Mouth 3 times a day For SUPPLEMENT/DI URETIC USE/HYPOCITRA URIA 15 mEq 06/11 Inactiv e 2023 27003 98820 1 3 times a day By Mouth False Potassium chloride ER 20 mEq tablet,exte nded release [generic] 20 mEq By Mouth 3 times a day *DO NOT CRUSH, CHEW OR BREAK* For SUPPLEMENT 20 mEq 12/18 Inactiv e 2023 72596 95469 1 3 times a day By Mouth False Tizanidine 4 mg tablet [generic] 4 mg By Mouth Once daily For MUSCLE SPASMS 4 mg 2023 Active 2023 70553 30748 0 Once daily By Mouth False Tylenol 325 mg tablet 2 tabs By Mouth Every 4 hours as needed For Fever >100 DO NOT EXCEED 3000 MG APAP/24 Hours 2 tabs 12/20 Inactiv e 2023 62068 17185 0 Every 4 hours as needed By Mouth False Dulcolax (bisacodyl) 10 mg rectal suppository Daily as needed For Constipation 1 sup 12/20 Inactiv e 2023 19647 91844 1 Daily as needed Rectal False Fleet Enema 19 gram-7 gram/118 mL 1 Rectal Daily as neededFor Constipation 1 12/20 Inactiv e 2023 53838 84136 6 Daily as needed Rectal False Milk of Magnesia 400 mg/5 mL oral suspension [Magnesium hydroxide] PRN 30ml By Mouth Daily as needed for constipation one time daily if no BM, on day 4 of no BM (PRN refer to instructions) For Constipation For Constipatioin 30ml 12/20 Inactiv e 2023 66925 16340 6 1 time By Mouth False Melatonin 3 mg tablet [generic] 3 mg By Mouth Once daily As Needed For INSOMNIA 3 mg 12/20 Inactiv e 2023 79645 01680 8 Once daily By Mouth False Hydrocortis one 1 % topical cream [generic] 1 % Rectal Four times daily as needed For hemorroid pain 1 % 12/20 Inactiv e 2023 87403 89924 1 Four times daily as needed Rectal False X-STGH ANTACID 750MG CHEW TAKE (1) TABLET BY MOUTH THREE TIMES DAILY NEEDED FOR INDIGESTION 12/20 Inactiv e 2023 48812 43638 4 Three times daily as needed Saline Mist 0.65 % nasal spray aerosol 0.65 % Nares Four times daily as needed For DRYNESS 0.65 % 12/20 Inactiv e 2023 09739 60821 8 Four times daily as needed Nares False Vicks Vaporub 4.7 %-1.2 %-2.6 % topical ointment Apply topically to chest Three times daily as needed For CONGESTION 4.7-1.2 -2.6 12/20 Inactiv e 2023 18782 38705 1 Three times daily as needed Topica l False VITAMIN D3 2000U CAP TAKE ONE (1) CAPSULE BY MOUTH DAILY* DO NOT CRUSH, CHEW OR BREAK* For Supplement 1 capsule 12/19 Inactiv e 2023 13756 41413 0 Once daily By Mouth False Potassium chloride ER 20 mEq tablet,exte nded release(par t/cryst) [generic] TAKE (1) TABLET BY MOUTH THREE TIMES DAILY (MORNING, AFTERNOON, EVENING)*DO NOT CRUSH, CHEW, OR BREAK* For SUPPLEMENT 20 MEQ 06/11 Inactiv e 2023 78490 29779 5 3 times a day By Mouth False Aspirin 81 mg tablet,camron yed release [generic] TAKE ONE (1) TABLET BY MOUTH ONCE DAILY*DO NOT CRUSH, CHEW OR BREAK* For CAD 81 MG 12/22 Inactiv e 2023 54359 35043 0 Once daily By Mouth False Furosemide 20 mg tablet [generic] TAKE 1 AND 1/2 TABLETS (30MG) BY MOUTH ONCE DAILY For CHF 30mg 2023 Active 2023 48573 54672 1 Once daily By Mouth False Polyethylen e glycol 3350 17 gram/dose oral powder [generic] MIX 17 GRAMS (1 CAPFUL) IN 60Z OF LIQUID AND DRINK BY MOUTH ONCE DAILY *HOLD FOR LOOSE STOOLS* For constipation 17 g 2023 Active 2023 49253 56416 3 Once daily By Mouth False Vitamin D3 50 mcg (2,000 unit) capsule Once daily TAKE ONE (1) CAPSULE BY MOUTH DAILY* DO NOT CRUSH, CHEW OR BREAK* For Supplement 1 capsule 02/07 Inactiv e 2023 54548 06408 2 Once daily By Mouth False Fleet Enema 19 gram-7 gram/118 mL 1 Rectal Daily as neededFor Constipation 1 202300 Active 2023 06370 71055 6 Daily as needed Rectal False Tums E-X 300 mg (as calcium carbonate 750 mg) chewable tablet 1 tab By Mouth TAKE (1) TABLET BY MOUTH THREE TIMES DAILY NEEDED FOR INDIGESTION 1 tab 202300 / Active 2023 02374 25580 1 Three times daily as needed By Mouth False Tylenol 325 mg tablet 2 tabs By Mouth Every 4 hours as needed For Fever >100 DO NOT EXCEED 3000 MG APAP/24 Hours 2 tabs 202300 / Active 2023 06930 66287 0 Every 4 hours as needed By Mouth False Vicks Vaporub 4.7 %-1.2 %-2.6 % topical ointment Apply topically to chest Three times daily as needed For CONGESTION topical 202300 Active 2023 89087 38301 1 Three times daily as needed Topica l False Tylenol 325 mg tablet 2 tabs By Mouth Every 4 hours as needed For DX- PAIN PRN FOR MILD PAIN, DO NOT EXCEED 3000MG APAP/24 HOURS 2 tabs 202300 Active 2023 45412 46917 0 Every 4 hours as needed By Mouth False Tramadol 50 mg tablet [generic] 1 tab By Mouth Every 4 hours as needed For DX- PAIN 5-10 1 tab 03/10 Inactiv e 2023 67587 37766 0 Every 4 hours as needed By Mouth False Saline Mist 0.65 % nasal spray aerosol 2 sprays Nares Four times daily as needed For DRYNESS 2 sprays 202300 Active 2023 97882 75656 8 Four times daily as needed Nares False Dulcolax (bisacodyl) 10 mg rectal suppository Daily as needed For Constipation 1 sup 202300 / Active 2023 49774 70282 1 Daily as needed Rectal False Hydrocortis one-pramoxi ne 1 %-1 % rectal cream [generic] 1 mague Rectal Four times daily as needed For hemorroid pain 1 mague 202300 /0000 Active 2023 99338 06789 4 Four times daily as needed Rectal False Melatonin 3 mg tablet [generic] 1 tab By Mouth At bedtime as needed For INSOMNIA 1 tab 12/24 Inactiv e 2023 63477 81195 8 At bedtime as needed By Mouth False Milk of Magnesia 400 mg/5 mL oral suspension 30ml By Mouth Daily as needed Daily as needed for constipation one time daily if no BM, on day 4 of no BM (PRN refer to instructions) For Constipation For Constipatioin 30ml 2023 Active 2023 31903 61162 2 Daily as needed By Mouth False Baclofen 20 mg tablet [generic] 20 mg By Mouth 4 times a day For MUSCLE SPASMS 20 mg 2023 Active 2023 65522 90266 1 4 times a day By Mouth False Melatonin 3 mg tablet [generic] 1 tab By Mouth At bedtime as needed For INSOMNIA 1 tab 2023 Active 2023 14879 25053 8 At bedtime as needed By Mouth False Bactrim DS 800 mg-160 mg tablet 1 tab By Mouth Twice daily For URINARY TRACT INFECTION, SITE NOT SPECIFIED 1 tab 01/06 Inactiv e 2023 37299 32891 1 Twice daily By Mouth N39.0 False Cefdinir 300 mg capsule [generic] 300 mg By Mouth Twice daily For UTI 300 mg 01/07 Inactiv e 2023 61080 78930 0 Twice daily By Mouth False Cefdinir 300 mg capsule [generic] 300 mg By Mouth Twice daily For UTI 300 mg 01/17 Inactiv e 2023 48966 40418 0 Twice daily By Mouth False Zyrtec 10 mg tablet 10 mg By Mouth Once daily For sinus congestion 10 mg 01/22 Inactiv e 2023 29527 77729 0 Once daily By Mouth False Tobramycin 0.3 %-dexametha sone 0.1 % eye drops,suspe nsion [generic] 0.3-0.1 % Left Eye 4 times a day For eye infection 0.3-0.1 % 02/05 Inactiv e 2023 03428 94458 5 4 times a day Left Eye False Fluconazole 150 mg tablet [generic] 150 mg By Mouth 1 time For yeast infection 150 mg 02/15 Inactiv e 2023 06203 53524 2 1 time By Mouth False Tramadol 50 mg tablet [generic] 1 tab By Mouth Every 4 hours as needed For DX- PAIN 5-10 1 tab 2023 Active 2023 11940 93945 0 Every 4 hours as needed By Mouth False Tobramycin 0.3 %-dexametha sone 0.1 % eye drops,suspe nsion [generic] 1 drop Left Eye 4 times a day For Inflammation of left eye 1 drop 05/08 Inactiv e 2023 17766 95961 5 4 times a day Left Eye False Voltaren Arthritis Pain 1 % topical gel 2 gm Topical Twice daily to rigth shoulder for 2 weeks For pain 2 gm 05/08 Inactiv e 2023 45918 17361 1 Twice daily Topica l False Chlorthalid one 25 mg tablet [generic] 12.5mg By Mouth Once daily For HTN 12.5mg 05/06 Inactiv e 2023 29102 02797 0 Once daily By Mouth False Chlorthalid one 25 mg tablet [generic] 12.5mg By Mouth Once daily For HTN 12.5mg 05/07 Inactiv e 2023 31472 02402 0 Once daily By Mouth False Chlorthalid one 25 mg tablet [generic] 05/07 Inactiv e 2023 46842 70421 0 Chlorthalid one 25 mg tablet [generic] 12.5mg By Mouth Once daily For HTN 12.5mg 2023 Active 2023 01678 53376 0 Once daily By Mouth False Norvasc 5 mg tablet 5mg By Mouth Once daily, hold medication if systolic is less than 90 For HYPERTENSIVE HEART DISEASE WITHOUT HEART FAILURE 5mg 06/03 Inactiv e 2023 95898 30669 1 Once daily By Mouth I11.9 False Norvasc 5 mg tablet 5mg By Mouth Once daily, hold medication if systolic is less than 90 For HYPERTENSIVE HEART DISEASE WITHOUT HEART FAILURE 5mg 06/03 Inactiv e 2023 54836 20133 1 Once daily By Mouth I11.9 False Norvasc 5 mg tablet 5mg By Mouth Once daily, hold medication if systolic is less than 90 For HYPERTENSIVE HEART DISEASE WITHOUT HEART FAILURE 5mg 2023 Active 2023 02580 55525 1 Once daily By Mouth I11.9 False DISCONTINUE as of 06/12/2024: Aspirin 81 mg tablet 06/12 Inactiv e 2023 Aspirin 81 mg tablet Once daily 1 TABLET BY MOUTH IN THE MORNING For DX- CAD DO NOT CRUSH, CHEW OR BREAK 81 mg 06/13 Inactiv e 2023 Once daily By Mouth False Vesicare 10 mg tablet 10 mg By Mouth Once daily For Bladder spasms 10 mg 2023 Active 2023 67093 17875 1 Once daily By Mouth False DISCONTINUE as of 06/13/2024: Aspirin 81 mg tablet 06/13 Inactiv e 2023 Aspirin 81 mg tablet Once daily 1 TABLET BY MOUTH IN THE MORNING For DX- CAD DO NOT CRUSH, CHEW OR BREAK 81 mg 06/13 Inactiv e 2023 Once daily By Mouth False Aspirin 81 mg tablet,camron yed release [generic] 81 mg By Mouth Once daily Do not crush, chew, or break For CAD 81 mg 06/14 Inactiv e 2023 71768 76490 9 Once daily By Mouth False Aspirin 81 mg tablet,camron yed release [generic] 06/14 Inactiv e 2023 25896 81928 9 Aspirin 81 mg tablet,camron yed release [generic] 81 mg By Mouth Once daily Do not crush, chew, or break For CAD 81 mg 06/15 Inactiv e 2023 63647 85535 9 Once daily By Mouth False Nystatin 100,000 unit/gram topical cream [generic] 100,000 unit Topical As Needed For DX- EXCORIATION 100,000 unit 12/12 Inactiv e 2023 59727 74426 5 Topica l False Vicks Vaporub 4.7 %-1.2 %-2.6 % topical ointment 4.7-1.2-2.6 Topical 3 times a day As Needed For DX- CONGESTION 4.7-1.2 -2.6 12/12 Inactiv e 2023 26775 65264 1 3 times a day Topica l False Ketoconazol e 2 % shampoo [generic] APPLY SHAMPOO TOPICALLY TO SCALP DURING HAIR WASHINGDX: ELVIA DERM OF SCALP For DX- ELVIA DERM OF SCALP 12/12 Inactiv e 2023 33134 85355 4 Topica l False THERA SILICONE SKIN GUARD Topical Twice daily 1 APPLICATION TOPICALLY IN THE MORNING AND AT BEDTIME TO SCROTUM For DX- PREVENTION 2023 00/00 /0000 Active 2023 Twice daily Topica l False Selenium sulfide 2.5 % lotion [generic] 2.5 % Topical EVERY MONDAY, MONDAY AND MONDAY AFTER SHOWER For DANDRUFF 2.5 % 2023 00/00 /0000 Active 2023 62859 13548 4 3 times a week Topica l False Nystatin (bulk) 100 million unit powder [generic] 100 million Topical Twice daily as needed For EXOCORATION 100 million 12/20 Inactiv e 2023 41908 54268 1 Twice daily as needed Topica l False Ketoconazol e 2 % shampoo [generic] Once daily APPLY SHAMPOO TOPICALLY TO SCALP DURING HAIR WASHING ON SHOWER DAYS- , , MON For ELVIA DERM OF SCAP 2 % 2023 00/00 /0000 Active 2023 70851 80539 4 Once daily Topica l False Nystatin 100,000 unit/gram topical cream [generic] 1 mague Topical Twice daily as needed For EXOCORATION 1 mague 06/05 Inactiv e 2023 58240 62795 5 Twice daily as needed Topica l False Nystatin 100,000 unit/gram topical powder [generic] 100,000 unit Topical Twice daily to scrotum with AM and PM care For Scrotal excoriation 100,000 unit 06/05 Inactiv e 2023 68921 02831 5 Twice daily Topica l False Problems Code Description Start Date End Date Status A41.02 Sepsis due to Methic illin resistant Staphylococcus aureus 07/21/2023 Active N20.0 Calculus of kidney 07/21/2023 Active N39.0 Urinary tract infection, site not specified 06/2024 Active R31.0 Gross hematuria 07/21/2023 Active G82.52 Quadriplegia, C1-C4 incomplete 07/21/2023 Active R53.1 Weakness 07/21/2023 Active Z87.440 Personal history of urinary (tract) infections 07/21/2023 Active I11.9 Hypertensive heart disease without heart failur e 07/21/2023 Active E78.5 Hyperlipidemia, unspecified 07/21/2023 00 Active K21.9 Gastro-esophageal re flux disease without esophagitis 07/21/2023 Active Z86.718 Personal history of other venous thrombosis and embolism 07/21/2023 Active Z46.6 Encounter for fittin g and adjustment of urinary device 07/21/2023 Active 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 07/21 Active N31.9 Neuromuscular dysfun ction of bladder, unspecified 07/21/2023 Active VITAL SIGNS Date Time Diastolic blood pressure Systolic blood pressure Body height Body weight Temperature SpO2 Blood Sugar Pulse Respirations 121 03329 9 83.00 mm[Hg] - Sitting 171.00 mm[Hg] - Sitting 122 59581 0 78.00 mm[Hg] - Sitting 138.00 mm[Hg] - Sitting 123 05006 0 86.00 mm[Hg] - Sitting 138.00 mm[Hg] - Sitting 97.80 Tympanic 97.00 % 72.00/ min 18.00/min 123 56714 4 86.00 mm[Hg] - Sitting 138.00 mm[Hg] - Sitting 124 67395 3 72.00 mm[Hg] - Sitting 145.00 mm[Hg] - Sitting 125 88096 7 72.00 mm[Hg] - Sitting 129.00 mm[Hg] - Sitting 126 34391 6 79.00 mm[Hg] - Sitting 164.00 mm[Hg] - Sitting 127 92247 3 93.00 mm[Hg] - Sitting 186.00 mm[Hg] - Sitting 128 73291 0 80.00 mm[Hg] - Sitting 154.00 mm[Hg] - Sitting 129 71987 3 83.00 mm[Hg] - Sitting 174.00 mm[Hg] - Sitting 130 26478 5 78.00 mm[Hg] - Sitting 152.00 mm[Hg] - Sitting 201 16394 1 87.00 mm[Hg] - Sitting 189.00 mm[Hg] - Sitting 202 21168 2 76.00 mm[Hg] - Sitting 136.00 mm[Hg] - Sitting 203 17132 2 259[place]80 [place] [address] 203 38788 5 93.00 mm[Hg] - Sitting 137.00 mm[Hg] - Sitting 204 98973 2 259.40 NI 65078 204 44091 1 78.00 mm[Hg] - Sitting 144.00 mm[Hg] - Sitting 205 95415 4 85.00 mm[Hg] - Sitting 142.00 mm[Hg] - Sitting 206 99727 9 76.00 mm[Hg] - Sitting 132.00 mm[Hg] - Sitting 95797 208 02132 9 82.00 mm[Hg] - Sitting 128.00 mm[Hg] - Sitting 73266 209 76700 2 78.00 mm[Hg] - Sitting 130.00 mm[Hg] - Sitting 85895 210 86310 6 80.00 mm[Hg] - Sitting 132.00 mm[Hg] - Sitting 51356 211 88946 5 78.00 mm[Hg] - Sitting 125.00 mm[Hg] - Sitting Immunizations Vaccine Date Status COVID-19 08/02/2020 Completed COVID-19 08/23/2020 Completed COVID-19 05/11/2021 Completed COVID-19 06/16/2022 Completed COVID-19 05/08/2023 Completed COVID-19 01/02/2024 Completed Influenza 05/07/2014 Completed Influenza 05/13/2015 Completed Influenza 05/06/2016 Completed Influenza 04/20/2017 Completed Influenza 04/27/2018 Completed Influenza 04/09/2020 Completed Influenza 05/26/2021 Completed Influenza 04/13/2022 Completed Influenza 04/19/2023 Completed (PCV13)Pneumococcal 07/25/2017 Completed (PPSV23)Pneumococcal 03/20/2009 Completed (PCV20)Pneumococcal 12/08/2023 Completed
== END 2024-06-24 15:18 | disposition home or self-care (01) ==
LOC: ED 11:09 → 3W 11:09 → SUATTDRO 15:26 → 3W 17:12

== ENCOUNTER 2024-07-26 09:31 | Observation (INO) ==
--- NOTE | 2024-07-15 14:22 | PAT Medication Instructions ---
Medication Instructions Date of Service July 15, 2024 Home Medications Medication Instructions Recorded solifenacin 10 mg tablet (Vesicare) 10 mg PO DAILY #30 tabs 06/12/24 cefepime 1 gram solution for 1 g IM Q12H #10 ea 07/05/24 injection tramadol 50 mg tablet 50 mg PO Q6H PRN pain #20 tabs 07/05/24 baclofen 20 mg tablet 20 mg PO QID MUSCLE SPASMS bisacodyl 10 mg rectal suppository 10 mg MI DAILY PRN CONSTIPATION furosemide 20 mg tablet 30 mg PO DAILY CHF gabapentin 300 mg capsule 300 mg PO TID NEUROPATHY loratadine 10 mg tablet 10 mg PO QAM ALLRGIES paroxetine HCl 30 mg tablet (Paxil) 30 mg PO QAM ANXIETY cholecalciferol (vitamin D3) 50 mcg (2,000 unit) capsule (Vitamin D3) 50 mcg PO QAM acetaminophen 325 mg tablet (Tylenol) 650 mg PO Q4H PRN PAIN/FEVER melatonin 3 mg tablet 3 mg PO HS PRN Sleep polyethylene glycol 3350 17 gram/dose oral powder (Miralax) 17 g PO DAILY tamsulosin 0.4 mg capsule 0.4 mg PO HS tizanidine 4 mg tablet 4 mg PO HS solifenacin 10 mg tablet (Vesicare) 10 mg PO DAILY hydrocortisone-pramoxine 1 %-1 % topical cream 1 applic topical QID PRN Pain camphor 4.7 %-eucalyptus oil 1.2 %-menthol 2.6 % topical ointment (Vicks Vaporub) 1 applic topical TID PRN Congestion magnesium hydroxide 400 mg/5 mL oral suspension (Milk of Magnesia) 2,400 mg PO DAILY PRN Constipation sodium chloride 0.65 % nasal spray aerosol (Saline Mist) 2 spray intranasal QID PRN DRYNESS sodium phosphates 19 gram-7 gram/118 mL enema (Fleet Enema) 118 ml MI DAILY PRN Constipation cefepime 1 gram solution for injection 1 g IM Q12H tramadol 50 mg tablet 50 mg PO Q6H PRN pain calcium carbonate (Tums Extra Strength Smoothies) 300 mg PO TID PRN Heartburn Continue as directed cefepime 1 gram solution for injection 1 g IM Q12H STOP taking 24 hours before surgery hydrocortisone-pramoxine 1 %-1 % topical cream 1 applic topical QID PRN Pain camphor 4.7 %-eucalyptus oil 1.2 %-menthol 2.6 % topical ointment (Vicks Vaporub) 1 applic topical TID PRN Congestion DO NOT take the morning of surgery bisacodyl 10 mg rectal suppository 10 mg MI DAILY PRN CONSTIPATION furosemide 20 mg tablet 30 mg PO DAILY CHF loratadine 10 mg tablet 10 mg PO QAM ALLRGIES cholecalciferol (vitamin D3) 50 mcg (2,000 unit) capsule (Vitamin D3) 50 mcg PO QAM polyethylene glycol 3350 17 gram/dose oral powder (Miralax) 17 g PO DAILY solifenacin 10 mg tablet (Vesicare) 10 mg PO DAILY magnesium hydroxide 400 mg/5 mL oral suspension (Milk of Magnesia) 2,400 mg PO DAILY PRN Constipation sodium phosphates 19 gram-7 gram/118 mL enema (Fleet Enema) 118 ml MI DAILY PRN Constipation calcium carbonate (Tums Extra Strength Smoothies) 300 mg PO TID PRN Heartburn Take morning of surgery With a small sip of water, OTHERWISE NOTHING TO EAT OR DRINK AFTER MIDNIGHT: baclofen 20 mg tablet 20 mg PO QID MUSCLE SPASMS gabapentin 300 mg capsule 300 mg PO TID NEUROPATHY paroxetine HCl 30 mg tablet (Paxil) 30 mg PO QAM ANXIETY acetaminophen 325 mg tablet (Tylenol) 650 mg PO Q4H PRN PAIN/FEVER (if needed) sodium chloride 0.65 % nasal spray aerosol (Saline Mist) 2 spray intranasal QID PRN DRYNESS (if needed) tramadol 50 mg tablet 50 mg PO Q6H PRN pain (if needed) Take evening before surgery baclofen 20 mg tablet 20 mg PO QID MUSCLE SPASMS bisacodyl 10 mg rectal suppository 10 mg MI DAILY PRN CONSTIPATION (if needed) gabapentin 300 mg capsule 300 mg PO TID NEUROPATHY acetaminophen 325 mg tablet (Tylenol) 650 mg PO Q4H PRN PAIN/FEVER (if needed) melatonin 3 mg tablet 3 mg PO HS PRN Sleep (if needed) polyethylene glycol 3350 17 gram/dose oral powder (Miralax) 17 g PO DAILY tamsulosin 0.4 mg capsule 0.4 mg PO HS tizanidine 4 mg tablet 4 mg PO HS magnesium hydroxide 400 mg/5 mL oral suspension (Milk of Magnesia) 2,400 mg PO DAILY PRN Constipation (if needed) sodium chloride 0.65 % nasal spray aerosol (Saline Mist) 2 spray intranasal QID PRN DRYNESS (if needed) sodium phosphates 19 gram-7 gram/118 mL enema (Fleet Enema) 118 ml MI DAILY PRN Constipation (if needed) tramadol 50 mg tablet 50 mg PO Q6H PRN pain (if needed) calcium carbonate (Tums Extra Strength Smoothies) 300 mg PO TID PRN Heartburn (if needed) Other Notes If you have any questions please call us at [phone] or [phone] or [phone] or [phone]
--- NOTE | 2024-07-19 12:08 | Anesthesiology Consultation ---
Date of Service July 19, 2024 Assessment & Plan Chart Review Chart Review: Acceptable Risk for Surgery and Patient NOT seen in Pre Admission Testing Consults Requested none History Surgery Operation Date: 07/26/24 08:45 Proposed Procedures p Cystoscopy, Ureteronephroscopy, Retrograde Pyelogram, with Possible Ureteral Dilation, Laser Destruction or Extraction of the Stone, Insertion or Exchange of Stent Catheter - Right - Jordan Barclay MD Height/Weight Height: 6 ft 1 in Weight: 117.48 kg Allergies Allergy/AdvReac Type Severity Reaction Status Date / Time ciprofloxacin [Cipro] Allergy Intermediate rash Verified 07/15/24 13:55 diazepam Allergy Intermediate rash Verified 07/15/24 13:55 gentamicin Allergy Intermediate rash Verified 07/15/24 13:55 ibuprofen Allergy Intermediate rash Verified 07/15/24 13:55 NSAIDS (Non-Steroidal Allergy Intermediate rash Verified 07/15/24 13:55 Anti-Inflamma Quinolones Allergy Intermediate rash Verified 07/15/24 13:55 Aminoglycosides Allergy Unknown unknown Verified 07/15/24 13:55 Medications Home Medications Medication Instructions Recorded Confirmed Last Taken baclofen 20 mg tablet 20 mg PO QID MUSCLE SPASMS 03/22/19 07/15/24 07/05/24 08:30 bisacodyl 10 mg rectal suppository 10 mg MT DAILY PRN CONSTIPATION 03/22/19 07/15/24 07/05/24 09:30 furosemide 20 mg tablet 30 mg PO DAILY CHF 03/22/19 07/15/24 07/04/24 09:00 gabapentin 300 mg capsule 300 mg PO TID NEUROPATHY 03/22/19 07/15/24 07/05/24 08:30 loratadine 10 mg tablet 10 mg PO QAM ALLRGIES 03/22/19 07/15/24 07/04/24 09:00 paroxetine HCl 30 mg tablet (Paxil) 30 mg PO QAM ANXIETY 03/22/19 07/15/24 07/04/24 09:00 cholecalciferol (vitamin D3) 50 50 mcg PO QAM 04/24/23 07/15/24 07/04/24 09:00 mcg (2,000 unit) capsule (Vitamin D3) acetaminophen 325 mg tablet 650 mg PO Q4H PRN PAIN/FEVER 08/17/23 07/15/24 Unknown (Tylenol) melatonin 3 mg tablet 3 mg PO HS PRN Sleep 08/17/23 07/15/24 07/04/24 22:00 polyethylene glycol 3350 17 17 g PO DAILY 10/03/23 07/15/24 10/02/23 09:00 gram/dose oral powder (Miralax) tamsulosin 0.4 mg capsule 0.4 mg PO HS 10/03/23 07/15/24 07/04/24 22:00 tizanidine 4 mg tablet 4 mg PO HS 10/03/23 07/15/24 07/04/24 22:00 solifenacin 10 mg tablet (Vesicare) 10 mg PO DAILY #30 tabs 06/12/24 07/15/24 07/05/24 09:00 hydrocortisone-pramoxine 1 %-1 % 1 applic topical QID PRN Pain 06/18/24 07/15/24 Unknown topical cream camphor 4.7 %-eucalyptus oil 1.2 1 applic topical TID PRN Congestion 06/21/24 07/15/24 Unknown %-menthol 2.6 % topical ointment (Vicks Vaporub) magnesium hydroxide 400 mg/5 mL 2,400 mg PO DAILY PRN Constipation 06/21/24 07/15/24 Unknown oral suspension (Milk of Magnesia) sodium chloride 0.65 % nasal spray 2 spray intranasal QID PRN DRYNESS 06/21/24 07/15/24 Unknown aerosol (Saline Mist) sodium phosphates 19 gram-7 118 ml MT DAILY PRN Constipation 06/21/24 07/15/24 Unknown gram/118 mL enema (Fleet Enema) cefepime 1 gram solution for 1 g IM Q12H #10 ea 07/05/24 07/15/24 Unknown injection tramadol 50 mg tablet 50 mg PO Q6H PRN pain #20 tabs 07/05/24 07/15/24 Unknown calcium carbonate (Tums Extra 300 mg PO TID PRN Heartburn 07/15/24 07/15/24 Unknown Strength Smoothies) Past Medical History Medical History (Updated 07/15/24 @ 13:53 by Luda Roque RN) Calculus of ureter Urinary tract infection Acute hypotension Acute confusion Hematuria Gross hematuria Unspecified fracture of shaft of right tibia, subsequent encounter for closed fracture with routine healing Hypertensive heart disease without heart failure Personal history of urinary (tract) infections Weakness Quadriplegia, C1-C4 incomplete Sepsis, unspecified organism Personal history of other venous thrombosis and embolism Insomnia Other muscle spasm Hyperlipidemia Urine retention MRSA (methicillin resistant staph aureus) culture positive blood and urine cultures 02/2023 hospitalization long-term resident resident of [facility] [place] Depression Anxiety GERD (gastroesophageal reflux disease) Neurogenic bladder History of COVID-19 12/2021- no symptoms, resolved Recurrent UTI (urinary tract infection) Suprapubic catheter Situational depression Chronic pain Generalized/diffuse Central cord syndrome Spinal cord injury C4/5 Partial paralysis below shoulders Deep vein thrombosis LLE (after trauma/thrown off horse 2010), IVC placed Hypertension Past Family History Family History Mother Family hx colonic polyps Past Surgical History Surgical History S/P cystoscopy with ureteral stent placement w/laser destruction kidney stone; multiple; most recent 06/22/24, w/cystolithopaxy History of urologic surgery left spermatocelectomy placement suprapubic catheter History of orthopedic surgery H/O hemorrhoidectomy Hx of surgical procedure Spermatocelectomy, left (08/05/19): LMA#[address] [facility]. No issues noted per post-op anesthesia progress note. History of lithotripsy History of cystoscopy cysto, laser, stent (05/02/23): LMA#[address] [facility] History of colonoscopy History of tooth extraction History of arthroscopy left knee Previous back surgery fusion C4/C5 Social History Smoking Status: Unknown if ever smoked Do You Dip or Chew Tobacco: No (UNKNOWN) Hx Alcohol Use: No (unknown) Alcohol type: hard liquor alcohol intake frequency: a few times a week Hx Substance Use: No substance use type: unknown
[~2024-07-26 09:31] MED LIST changes: +DEXAMETHASONE SOD INJ 4 MG/ML VIAL ONE; -LACTATED RINGER'S 1,000 ML IV SCH; +LIDOCAINE 2% 2 ML VIAL/AMP(20MG/ML) INFIL ONE; +ONDANSETRON INJ 2 MG/ML 2 ML VIAL ONE; -PIPERACILLIN IV SCH; +PROPOFOL IV EMULSION 10 MG/ML 20 ML VIAL IV ONE; -TAZOBACTAM IV SCH; +ePHEDrine sulfate 50 MG/ML AMP ONE; +fentaNYL citrate PF 100 MCG/2 ML VIAL ONE
--- NOTE | 2024-07-26 10:21 | History & Physical Report ---
Date of Service July 26, 2024 Assessment & Plan (1) Nephrolithiasis: (2) Neurogenic bladder: Plan A large quantity of right renal calculi, plan for cystoscopy, right ureteroscopy, laser lithotripsy, stent exchange and suprapubic tube exchange Risks, benefits, expectations reviewed History of Present Illness Primary Care Provider: Dang Pritchett DO 74-year-old quadriplegic well-known to my service who returns for the second stage of multistage right ureteroscopy laser lithotripsy Plan for SP changes well today Allergies Allergy/AdvReac Type Severity Reaction Status Date / Time ciprofloxacin [Cipro] Allergy Intermediate rash Verified 07/26/24 10:06 diazepam Allergy Intermediate rash Verified 07/26/24 10:06 gentamicin Allergy Intermediate rash Verified 07/26/24 10:06 ibuprofen Allergy Intermediate rash Verified 07/26/24 10:06 NSAIDS (Non-Steroidal Allergy Intermediate rash Verified 07/26/24 10:06 Anti-Inflamma Quinolones Allergy Intermediate rash Verified 07/26/24 10:06 Aminoglycosides Allergy Unknown unknown Verified 07/26/24 10:06 Home Medications Medication Instructions Recorded Confirmed Type baclofen 20 mg tablet 20 mg PO QID MUSCLE SPASMS 03/22/19 07/26/24 History bisacodyl 10 mg rectal suppository 10 mg MT DAILY PRN CONSTIPATION 03/22/19 07/26/24 History furosemide 20 mg tablet 30 mg PO DAILY CHF 03/22/19 07/26/24 History gabapentin 300 mg capsule 300 mg PO TID NEUROPATHY 03/22/19 07/26/24 History loratadine 10 mg tablet 10 mg PO QAM ALLRGIES 03/22/19 07/26/24 History paroxetine HCl 30 mg tablet (Paxil) 30 mg PO QAM ANXIETY 03/22/19 07/26/24 History cholecalciferol (vitamin D3) 50 50 mcg PO QAM 04/24/23 07/26/24 History mcg (2,000 unit) capsule (Vitamin D3) acetaminophen 325 mg tablet 650 mg PO Q4H PRN PAIN/FEVER 08/17/23 07/26/24 History (Tylenol) melatonin 3 mg tablet 3 mg PO HS PRN Sleep 08/17/23 07/26/24 History polyethylene glycol 3350 17 17 g PO DAILY 10/03/23 07/26/24 History gram/dose oral powder (Miralax) tamsulosin 0.4 mg capsule 0.4 mg PO HS 10/03/23 07/26/24 History tizanidine 4 mg tablet 4 mg PO HS 10/03/23 07/26/24 History solifenacin 10 mg tablet (Vesicare) 10 mg PO DAILY #30 tabs 06/12/24 07/26/24 Rx hydrocortisone-pramoxine 1 %-1 % 1 applic topical QID PRN Pain 06/18/24 07/26/24 History topical cream camphor 4.7 %-eucalyptus oil 1.2 1 applic topical TID PRN Congestion 06/21/24 07/26/24 History %-menthol 2.6 % topical ointment (Vicks Vaporub) magnesium hydroxide 400 mg/5 mL 2,400 mg PO DAILY PRN Constipation 06/21/24 07/26/24 History oral suspension (Milk of Magnesia) sodium chloride 0.65 % nasal spray 2 spray intranasal QID PRN DRYNESS 06/21/24 07/26/24 History aerosol (Saline Mist) sodium phosphates 19 gram-7 118 ml MT DAILY PRN Constipation 06/21/24 07/26/24 History gram/118 mL enema (Fleet Enema) cefepime 1 gram solution for 1 g IM Q12H #10 ea 07/05/24 07/26/24 Rx injection tramadol 50 mg tablet 50 mg PO Q6H PRN pain #20 tabs 07/05/24 07/26/24 Rx calcium carbonate (Tums Extra 300 mg PO TID PRN Heartburn 07/15/24 07/26/24 History Strength Smoothies) Past Med/Surg History Problem List Chronic indwelling Evans catheter (Acute) Calculus of ureter Occlusion of ureteral stent (Acute) Hydronephrosis with renal and ureteral calculous obstruction (Acute) Displacement of nephrostomy tube (Acute) removed in ER @ [facility] 03/19/23 Nephrolithiasis Muscle spasms of both lower extremities Vitamin deficiency Spermatocele Hyperlipidemia Neurogenic bladder Anticoagulated (Acute) HTN (hypertension) (Acute) Quadriplegia "Partial"/Incomplete quadriplegia (C4 lesion) s/p 2010 trauma Medical History Calculus of ureter Urinary tract infection Acute hypotension Acute confusion Hematuria Gross hematuria Unspecified fracture of shaft of right tibia, subsequent encounter for closed fracture with routine healing Hypertensive heart disease without heart failure Personal history of urinary (tract) infections Weakness Quadriplegia, C1-C4 incomplete Sepsis, unspecified organism Personal history of other venous thrombosis and embolism Insomnia Other muscle spasm Hyperlipidemia Urine retention MRSA (methicillin resistant staph aureus) culture positive blood and urine cultures 02/2023 hospitalization [facility] resident resident of [facility] Depression Anxiety GERD (gastroesophageal reflux disease) Neurogenic bladder History of COVID-19 12/2021- no symptoms, resolved Recurrent UTI (urinary tract infection) Suprapubic catheter Situational depression Chronic pain Generalized/diffuse Central cord syndrome Spinal cord injury C4/5 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 No issues noted per post-op anesthesia progress note. History of lithotripsy History of cystoscopy cysto, laser, stent (05/02/23): LMA#5 at [facility] History of colonoscopy History of tooth extraction History of arthroscopy left knee Previous back surgery fusion C4/C5 Family History Mother Family hx colonic polyps Social History Smoking Status: Unknown if ever smoked Second Hand Exposure: No (UNKNOWN); Do You Dip or Chew Tobacco: No (UNKNOWN); Hx Alcohol Use: No (unknown) Hx Substance Use: No Preferred Language: Unknown Visual Impairment: No Limitations Ocularist Required: No Beliefs That Will Affect Care: None Current Living Situation: [facility] Current Living Situation Comment: [facility] [place] Feels Safe at Home: Yes Assistive Devices: Wheelchair Physical Exam Physical Exam: Quadriplegic but moving all 4 extremities Otherwise healthy appearing Constitutional: No apparent distress Abdomen soft SP site appropriate Legs without significant edema Large scrotal
[2024-07-26] MEDS: LR 15ML/HR IV SCH (10:32)
[2024-07-26] MEDS ORDERED: fentaNYL citrate PF 100 MCG/2 ML VIAL IV PRN (10:42)
[2024-07-26] MEDS ORDERED: ONDANSETRON INJ 2 MG/ML 2 ML VIAL IV PRN ×2 (10:42→18:10)
[2024-07-26] MEDS ORDERED: ePHEDrine sulfate 50 MG/ML AMP IV PRN (10:42)
[2024-07-26] MEDS ORDERED: ATROPINE SULFATE 0.1 MG/ML 10ML SYR IV PRN (10:42)
--- OUTSIDE RECORDS SUMMARY | 2024-07-26 11:09 | External Medical Summary | Continuity Of Care Document ---
Author Name Unknown Address [address] [place] [address] Organization [facility] () Care Team Providers Care Manager Publishing Name Role Phone DO Pritchett Amy Primary Care Provider [phone] Allergies Allergy Reaction Start Date End Date Status AMINOGLYCOSIDES Active CIPRO Active GENTAMICIN Active NSAIDS (NON-STEROIDAL ANTI-INFLAMMATORY DRUG) 0 Active IBUPROFEN Active QUINOLONES Active VALIUM Active Medications Medication Instructions Dosage Start Date End Date Status Order Date Drug Code Frequency Route of Admin Diagnosis Code Substitutions Allowed Spikevax 4388-0065(1 2y up)(PF) 50 mcg/0.5 mL intramuscul ar suspension [COVID [id number](12 up)(andu)(P F)] 0.5mL Intramuscular 1 time Monitory 15 Minutes post injection for adverse effects; record site/temp For COVID 19 PREVENTION 0.5mL 01/02 Inactiv e 2023 28195 77991 4 1 time Intram uscula r False [facility] - Nurse initials indicate verificatio n that [id number] vaccine was administere d by [facility] Representat jon 1 Intramuscular 1 time ( Indicate vaccine type) For vaccine 1 05/03 Inactiv e 2023 1 time Intram uscula r False Lisinopril 40 mg tablet [generic] TAKE ONE (1) TABLET BY MOUTH IN THE MORNING. For DX- HTN 1 2023 Active 2023 09003 46523 1 Once daily By Mouth False Tizanidine 2 mg tablet [generic] TAKE ONE (1) TABLET BY MOUTH ONCE DAILY For MUSCLE SPASM 1 2023 Active 2023 30060 67107 0 Once daily By Mouth M62.838 False Tamsulosin 0.4 mg capsule [generic] TAKE (1) CAPSULE BY MOUTH AT BEDTIME For SPASMS 1 2023 Active 2023 49535 26446 0 Once daily By Mouth False Aspirin 81 mg tablet Once daily 1 TABLET BY MOUTH IN THE MORNING For DX- CAD DO NOT CRUSH, CHEW OR BREAK 81 mg 06/12 Inactiv e 2023 Once daily By Mouth False Baclofen 20 mg tablet [generic] 20 mg By Mouth 4 times a day For DX- MUSCLE SPASMS 20 mg 12/12 Inactiv e 2023 50169 96556 1 4 times a day By Mouth False Calcium citrate 250 mg tablet Once daily 4 TABLET BY MOUTH For DX- SUPPLEMENT 250 mg calci 12/12 Inactiv e 2023 Once daily By Mouth False Co Q-10 100 mg capsule 100 mg By Mouth Once daily For DX- SUPPLEMENT 100 mg 06/20 Inactiv e 2023 07971 14062 5 Once daily By Mouth False Furosemide 20 mg tablet [generic] 20 mg By Mouth Once daily For DX-CHF 20 mg 12/12 Inactiv e 2023 21456 53859 0 Once daily By Mouth False Gabapentin 300 mg capsule [generic] 300 mg By Mouth 3 times a day For DX- NEUROPATHY 300 mg 12/12 Inactiv e 2023 90596 20356 4 3 times a day By Mouth False Loratadine 10 mg tablet [generic] 10 mg By Mouth Once daily For DX- ALLERGIES 10 mg 2023 Active 2023 46842 36661 1 Once daily By Mouth False Miralax 17 gram/dose oral powder 17 gram/dose By Mouth IN THE MORNING Mix 1 TABLESPOON IN 8 OZ OF FLUID HOLD FOR LOOSE STOOLS For DX- CONSTIPATION 17 gram/do se 12/12 Inactiv e 2023 25076 55331 0 Once daily By Mouth False Paroxetine 30 mg tablet [generic] 30 mg By Mouth Once daily For DX- DEPRESSION 30 mg 2023 00/00 /0000 Active 2023 57627 53060 3 Once daily By Mouth False Potassium citrate ER 15 mEq (1,620 mg) tablet,exte nded release [generic] 15 mEq By Mouth 3 times a day For DX- SUPPLEMENT/DI URETIC USE/ HYPOCITRAUIRA DO NOT CRUSH 15 mEq 12/12 Inactiv e 2023 20191 78163 1 3 times a day By Mouth [...] For DX- DANDRUFF 12/12 Inactiv e 2023 91767 10210 4 3 times a week Topica l False Acetaminoph en 325 mg tablet [generic] TAKE 2 TABS (650MG) BY MOUTH EVERY 4 HOURS NEEDED FOR TEMP >100 NOT TO EXCEED 3GM/24HRS TAKE 2 TABS (650MG) BY MOUTH EVERY 4 HOURS NEEDED FOR TEMP >100 NOT TO EXCEED 3GM/24HRS For DX-FEVER 2 12/12 Inactiv e 2023 50853 80203 0 By Mouth False MILK OF MAGNESIA ADMINISTER 30 ML BY MOUTH ONCE DAILY NEEDED FOR CONSTIPATION X3 DAYS WITH NO BM. For DX- CONSTIPATION 30ML 12/12 Inactiv e 2023 65928 44114 9 By Mouth False Enema Disposable 19 gram-7 gram/118 mL ADMINISTER ONE ENEMA RECTALLY ONCE DAILY NEEDED FOR CONSTIPATION ON DAY 6 OF NO BM For DX- CONSTIPATION 12/12 Inactiv e 2023 14985 86584 1 Rectal False TUMS EXTRA STR 750MG TAKE (1) TABLET BY MOUTH THREE TIMES DAILY NEEDED FOR INDIGESTION For DX- INDIGESTION 1 12/12 Inactiv e 2023 01147 84946 8 By Mouth False Vitamin D3 25 [...] CONSTIPATION 10 mg 12/12 Inactiv e 2023 46835 40233 1 Rectal False Melatonin 3 mg tablet [generic] 3 mg By Mouth As Needed For DX-INSOMMIA 3 mg 12/12 Inactiv e 2023 14819 91759 8 By Mouth False Hydrocortis one 1 % topical cream [generic] 1 % Topical As Needed For DX- PAIN 1 % 12/12 Inactiv e 2023 22738 29078 1 Topica l False HYDROCORTIS ONE/PARMOXI NE [...] 5-10 50 mg 12/20 Inactiv e 2023 07571 93806 0 Every 4 hours as needed By Mouth False Tylenol 325 mg tablet 325 mg By Mouth Every 4 hours as needed For DX- PAIN PRN FOR MILD PAIN, DO NOT EXCEED 3000MG APAP/24 HOURS 325 mg 12/20 Inactiv e 2023 38036 81313 0 Every 4 hours as needed By Mouth False Baclofen 20 mg tablet [generic] 20 mg By Mouth 4 times a day For MUSCLE SPASMS 20 mg 12/20 Inactiv e 2023 87913 88117 1 4 times a day By Mouth False Calcium citrate 250 mg tablet [generic] Once daily TAKE 4 TABLETS (1000MG) BY MOUTH For SUPPLEMENT 1000 MG 06/26 Inactiv e 2023 22346 99910 6 Once daily By Mouth False Dulcolax (bisacodyl) 10 mg rectal suppository 10 mg Rectal Once daily For CONSTIPATION *MAY HOLD FOR LOOSE STOOLS* 10 mg 2023 Active 2023 96135 87751 1 Once daily Rectal False Gabapentin 300 mg capsule [generic] 300 mg By Mouth 3 times a day For NEUROPATHY 300 mg 2023 Active 2023 29528 96727 4 3 times a day By Mouth False Potassium citrate ER 15 mEq (1,620 mg) tablet,exte nded release [generic] 15 mEq By Mouth 3 times a day For SUPPLEMENT/DI URETIC USE/HYPOCITRA URIA 15 mEq 06/11 Inactiv e 2023 72009 26360 1 3 times a day By Mouth False Potassium chloride ER 20 mEq tablet,exte nded release [generic] 20 mEq By Mouth 3 times a day *DO NOT CRUSH, CHEW OR BREAK* For SUPPLEMENT 20 mEq 12/18 Inactiv e 2023 42827 05808 1 3 times a day By Mouth False Tizanidine 4 mg tablet [generic] 4 mg By Mouth Once daily For MUSCLE SPASMS 4 mg 2023 Active 2023 28020 12745 0 Once daily By Mouth False Tylenol 325 mg tablet 2 tabs By Mouth Every 4 hours as needed For Fever >100 DO NOT EXCEED 3000 MG APAP/24 Hours 2 tabs 12/20 Inactiv e 2023 96294 64771 0 Every 4 hours as needed By Mouth False Dulcolax (bisacodyl) 10 mg rectal suppository Daily as needed For Constipation 1 sup 12/20 Inactiv e 2023 79458 81976 1 Daily as needed Rectal False Problems Code Description Start Date End Date Status A41.02 Sepsis due to Methic illin resistant Staphylococcus aureus 07/21/2023 Active N20.0 Calculus of kidney 07/21/2023 Active N39.0 Urinary tract infection, site not specified 06/2024 Active R31.0 Gross hematuria 07/21/2023 Active G82.52 Quadriplegia, C1-C4 incomplete 07/21/2023 Active R53.1 Weakness 07/21/2023 Active Z87.440 Personal history of urinary (tract) infections 07/21/2023 Active I11.9 Hypertensive heart d isease without heart failure 07/21/2023 Active E78.5 Hyperlipidemia, unspecified 07/21/2023 00 Active K21.9 Gastro-esophageal re flux disease without esophagitis 07/21/2023 Active Z86.718 Personal history of other venous thrombosis and embolism 07/21/2023 Active Z46.6 Encounter for fittin g and adjustment of urinary device 07/21/2023 Active 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 07/21 Active N31.9 Neuromuscular dysfun ction of bladder, unspecified 07/21/2023 Active G82.50 Quadriplegia, unspecified 06/21/2024 Active S14.102S Unspecified injury a t C2 level of cervical spinal cord, sequela 06/21/2024 Active S14.109A Unspecified injury a t unspecified level of cervical spinal cord, initial encounter 06/21/2024 Active M62.81 Muscle weakness (generalized) 06/21/202400/ 0000 Active VITAL SIGNS Date Time Diastolic blood pressure Systolic blood pressure Body height Body weight Temperature SpO2 Blood Sugar Pulse Respirations 60251 216 12279 1 254.10 [place] [address] 216 24600 2 79.00 mm[Hg] - Sitting 157.00 mm[Hg] - Sitting 73 NI 254.10 NI 36.30 Tympanic 95.00 % 72.00/ min 16.00/min 84455 216 24040 4 98.80 Tympanic 69805 216 69687 2 78.00 mm[Hg] - Sitting 164.00 mm[Hg] - Sitting 43741 217 08523 3 98.20 Tympanic 35829 217 13924 5 73.00 mm[Hg] - Sitting 159.00 mm[Hg] - Sitting 67591 217 79739 9 98.40 Forehead Scan 15823 218 27796 3 97.90 Tympanic 22001 218 13095 5 77.00 mm[Hg] - Sitting 137.00 mm[Hg] - Sitting 83113 219 11787 0 97.70 Tympanic 97908 219 20348 6 97.60 Tympanic 27684 219 64289 4 76.00 mm[Hg] - Sitting 139.00 mm[Hg] - Sitting 53468 219 20033 4 97.80 Forehead Scan 73566 220 15718 9 97.90 Tympanic 05735 220 68685 9 76.00 mm[Hg] - Sitting 138.00 mm[Hg] - Sitting 26925 220 99842 6 98.10 Tympanic 57077 221 81068 5 67.00 mm[Hg] - Sitting 142.00 mm[Hg] - Sitting 37412 221 36947 8 98.20 Tympanic 84909 221 91344 0 98.30 Tympanic 98485 222 36881 7 98.20 Tympanic 53499 222 66239 8 97.90 Tympanic 07976 223 87958 3 98.20 Tympanic 63522 223 17584 3 98.00 Tympanic 21369 224 57476 0 59.00 mm[Hg] - Sitting 111.00 mm[Hg] - Sitting 98.40 Forehead Scan 95.00 % 56.00/ min 18.00/min 42797 224 72435 9 98.20 Forehead Scan 72537 224 52833 3 97.90 Tympanic 36364 225 58979 4 98.20 Tympanic 08552 225 58591 8 97.50 Forehead Scan 56780 228 60821 0 55.00 mm[Hg] - Sitting 118.00 mm[Hg] - Sitting 98.40 Tympanic 69.00/ min 08345 229 13602 8 78.00 mm[Hg] - Sitting 152.00 mm[Hg] - Sitting 89627 230 17919 0 62.00 mm[Hg] - Sitting 122.00 mm[Hg] - Sitting 07485 231 26872 7 72.00 mm[Hg] - Lying Down 140.00 mm[Hg] - Lying Down 56282 101 85065 3 97.70 Forehead Scan 85883 101 22005 1 254.10 NI 69.00/ min 83197 101 42406 9 72.00 mm[Hg] - Sitting 142.00 mm[Hg] - Sitting 97.70 Tympanic 18.00/min 55689 101 30203 3 72.00 mm[Hg] - Lying Down 142.00 mm[Hg] - Lying Down 91824 102 93245 8 68.00 mm[Hg] - Lying Down 152.00 mm[Hg] - Lying Down 19064 103 72603 5 74.00 mm[Hg] - Sitting 158.00 mm[Hg] - Sitting 50200 104 25992 9 78.00 mm[Hg] - Sitting 144.00 mm[Hg] - Sitting 70749 105 31904 5 68.00 mm[Hg] - Sitting 138.00 mm[Hg] - Sitting 62628 106 22253 1 70.00 mm[Hg] - Sitting 138.00 mm[Hg] - Sitting 77428 107 09491 1 67.00 mm[Hg] - Sitting 142.00 mm[Hg] - Sitting 70412 108 52140 0 74.00 mm[Hg] - Sitting 143.00 mm[Hg] - Sitting 91623 110 09347 6 85.00 mm[Hg] - Sitting 160.00 mm[Hg] - Sitting 97.80 Tympanic 93.00 % 76.00/ min 18.00/min 07902 111 70166 1 83.00 mm[Hg] - Sitting 129.00 mm[Hg] - Sitting 98.60 Tympanic 92.00 % 71.00/ min 18.00/min 92571 111 74308 5 60.00 mm[Hg] - Sitting 114.00 mm[Hg] - Sitting 98.70 Tympanic 92.00 % 76.00/ min 18.00/min 80372 112 82291 4 55.00 mm[Hg] - Sitting 125.00 mm[Hg] - Sitting 98.60 Tympanic 91.00 % 68.00/ min 18.00/min 88741 112 10430 9 75.00 mm[Hg] - Sitting 174.00 mm[Hg] - Sitting 97.70 Tympanic 96.00 % 71.00/ min 18.00/min 56125 113 76380 2 77.00 mm[Hg] - Sitting 139.00 mm[Hg] - Sitting 98.10 Tympanic 97.00 % 81.00/ min 18.00/min 23063 113 30738 4 78.00 mm[Hg] - Sitting 153.00 mm[Hg] - Sitting 98.40 Tympanic 93.00 % 69.00/ min 18.00/min 91850 114 71899 5 76.00 mm[Hg] - Sitting 137.00 mm[Hg] - Sitting 98.10 Tympanic 97.00 % 80.00/ min 18.00/min 25610 114 66944 0 76.00 mm[Hg] - Sitting 145.00 mm[Hg] - Sitting 97.90 Tympanic 98.00 % 73.00/ min 18.00/min 89957 115 35623 3 98.40 Tympanic 94710 115 73804 5 79.00 mm[Hg] - Sitting 143.00 mm[Hg] - Sitting 97.90 Tympanic 97.00 % 85.00/ min 18.00/min 63491 115 61054 5 76.00 mm[Hg] - Sitting 135.00 mm[Hg] - Sitting 97.80 Tympanic 97.00 % 81.00/ min 18.00/min Immunizations Vaccine Date Status COVID-19 [...]
--- OUTSIDE RECORDS SUMMARY | 2024-07-26 11:09 | External Medical Summary | Continuity Of Care Document ---
Author Name Unknown Address [address] [place] [address] [facility] () Care Team Providers Care Director Reactor Projects Name Role Phone DO Pritchett Amy Primary Care Provider [phone] Allergies Allergy Reaction Start Date End Date Status AMINOGLYCOSIDES Active CIPRO Active GENTAMICIN Active NSAIDS (NON-STEROIDAL ANTI-INFLAMMATORY DRUG) 0 Active IBUPROFEN Active QUINOLONES Active VALIUM Active Medications Medication Instructions Dosage Start Date End Date Status Order Date Drug Code Frequency Route of Admin Diagnosis Code Substitutions Allowed Spikevax 4119-9424(1 2y up)(PF) 50 mcg/0.5 mL intramuscul ar suspension [COVID zse78-24(12 up)(andu)(P F)] 0.5mL Intramuscular 1 time Monitory 15 Minutes post injection for adverse effects; record site/temp For COVID 19 PREVENTION 0.5mL 01/02 Inactiv e 2023 57449 21445 4 1 time Intram uscula r False [facility] - Nurse initials indicate verificatio n that [id number] vaccine was administere d by [facility] Representat jon 1 Intramuscular 1 time ( Indicate vaccine type) For vaccine 1 05/03 Inactiv e 2023 1 time Intram uscula r False Lisinopril 40 mg tablet [generic] TAKE ONE (1) TABLET BY MOUTH IN THE MORNING. For DX- HTN 1 2023 Active 2023 56188 92063 1 Once daily By Mouth False Tizanidine 2 mg tablet [generic] TAKE ONE (1) TABLET BY MOUTH ONCE DAILY For MUSCLE SPASM 1 2023 Active 2023 33776 05177 0 Once daily By Mouth M62.838 False Tamsulosin 0.4 mg capsule [generic] TAKE (1) CAPSULE BY MOUTH AT BEDTIME For SPASMS 1 2023 Active 2023 09553 26163 0 Once daily By Mouth False Aspirin 81 mg tablet Once daily 1 TABLET BY MOUTH IN THE MORNING For DX- CAD DO NOT CRUSH, CHEW OR BREAK 81 mg 06/12 Inactiv e 2023 Once daily By Mouth False Baclofen 20 mg tablet [generic] 20 mg By Mouth 4 times a day For DX- MUSCLE SPASMS 20 mg 12/12 Inactiv e 2023 52709 12851 1 4 times a day By Mouth False Calcium citrate 250 mg tablet Once daily 4 TABLET BY MOUTH For DX- SUPPLEMENT 250 mg calci 12/12 Inactiv e 2023 Once daily By Mouth False Co Q-10 100 mg capsule 100 mg By Mouth Once daily For DX- SUPPLEMENT 100 mg 06/20 Inactiv e 2023 39464 45249 5 Once daily By Mouth False Furosemide 20 mg tablet [generic] 20 mg By Mouth Once daily For DX-CHF 20 mg 12/12 Inactiv e 2023 13424 64886 0 Once daily By Mouth False Gabapentin 300 mg capsule [generic] 300 mg By Mouth 3 times a day For DX- NEUROPATHY 300 mg 12/12 Inactiv e 2023 09109 00065 4 3 times a day By Mouth False Loratadine 10 mg tablet [generic] 10 mg By Mouth Once daily For DX- ALLERGIES 10 mg 2023 Active 2023 75479 83990 1 Once daily By Mouth False Miralax 17 gram/dose oral powder 17 gram/dose By Mouth IN THE MORNING Mix 1 TABLESPOON IN 8 OZ OF FLUID HOLD FOR LOOSE STOOLS For DX- CONSTIPATION 17 gram/do se 12/12 Inactiv e 2023 84252 46542 0 Once daily By Mouth False Paroxetine 30 mg tablet [generic] 30 mg By Mouth Once daily For DX- DEPRESSION 30 mg 2023 00/00 /0000 Active 2023 54512 27156 3 Once daily By Mouth False Potassium citrate ER 15 mEq (1,620 mg) tablet,exte nded release [generic] 15 mEq By Mouth 3 times a day For DX- SUPPLEMENT/DI URETIC USE/ HYPOCITRAUIRA DO NOT CRUSH 15 mEq 12/12 Inactiv e 2023 89083 14115 1 3 times a day By Mouth [...] For DX- DANDRUFF 12/12 Inactiv e 2023 00258 65574 4 3 times a week Topica l False Acetaminoph en 325 mg tablet [generic] TAKE 2 TABS (650MG) BY MOUTH EVERY 4 HOURS NEEDED FOR TEMP >100 NOT TO EXCEED 3GM/24HRS TAKE 2 TABS (650MG) BY MOUTH EVERY 4 HOURS NEEDED FOR TEMP >100 NOT TO EXCEED 3GM/24HRS For DX-FEVER 2 12/12 Inactiv e 2023 38343 43099 0 By Mouth False MILK OF MAGNESIA ADMINISTER 30 ML BY MOUTH ONCE DAILY NEEDED FOR CONSTIPATION X3 DAYS WITH NO BM. For DX- CONSTIPATION 30ML 12/12 Inactiv e 2023 48746 85206 9 By Mouth False Enema Disposable 19 gram-7 gram/118 mL ADMINISTER ONE ENEMA RECTALLY ONCE DAILY NEEDED FOR CONSTIPATION ON DAY 6 OF NO BM For DX- CONSTIPATION 12/12 Inactiv e 2023 40502 74639 1 Rectal False TUMS EXTRA STR 750MG TAKE (1) TABLET BY MOUTH THREE TIMES DAILY NEEDED FOR INDIGESTION For DX- INDIGESTION 1 12/12 Inactiv e 2023 97455 76025 8 By Mouth False Vitamin D3 25 [...] CONSTIPATION 10 mg 12/12 Inactiv e 2023 93405 14783 1 Rectal False Melatonin 3 mg tablet [generic] 3 mg By Mouth As Needed For DX-INSOMMIA 3 mg 12/12 Inactiv e 2023 03535 35511 8 By Mouth False Hydrocortis one 1 % topical cream [generic] 1 % Topical As Needed For DX- PAIN 1 % 12/12 Inactiv e 2023 47298 45423 1 Topica l False HYDROCORTIS ONE/PARMOXI NE [...] 5-10 50 mg 12/20 Inactiv e 2023 41342 79018 0 Every 4 hours as needed By Mouth False Tylenol 325 mg tablet 325 mg By Mouth Every 4 hours as needed For DX- PAIN PRN FOR MILD PAIN, DO NOT EXCEED 3000MG APAP/24 HOURS 325 mg 12/20 Inactiv e 2023 73820 37844 0 Every 4 hours as needed By Mouth False Baclofen 20 mg tablet [generic] 20 mg By Mouth 4 times a day For MUSCLE SPASMS 20 mg 12/20 Inactiv e 2023 70359 58129 1 4 times a day By Mouth False Calcium citrate 250 mg tablet [generic] Once daily TAKE 4 TABLETS (1000MG) BY MOUTH For SUPPLEMENT 1000 MG 06/26 Inactiv e 2023 64306 43834 6 Once daily By Mouth False Dulcolax (bisacodyl) 10 mg rectal suppository 10 mg Rectal Once daily For CONSTIPATION *MAY HOLD FOR LOOSE STOOLS* 10 mg 2023 Active 2023 75992 10863 1 Once daily Rectal False Gabapentin 300 mg capsule [generic] 300 mg By Mouth 3 times a day For NEUROPATHY 300 mg 2023 Active 2023 30080 03536 4 3 times a day By Mouth False Potassium citrate ER 15 mEq (1,620 mg) tablet,exte nded release [generic] 15 mEq By Mouth 3 times a day For SUPPLEMENT/DI URETIC USE/HYPOCITRA URIA 15 mEq 06/11 Inactiv e 2023 36664 97661 1 3 times a day By Mouth False Potassium chloride ER 20 mEq tablet,exte nded release [generic] 20 mEq By Mouth 3 times a day *DO NOT CRUSH, CHEW OR BREAK* For SUPPLEMENT 20 mEq 12/18 Inactiv e 2023 90319 67743 1 3 times a day By Mouth False Tizanidine 4 mg tablet [generic] 4 mg By Mouth Once daily For MUSCLE SPASMS 4 mg 2023 Active 2023 87032 08822 0 Once daily By Mouth False Tylenol 325 mg tablet 2 tabs By Mouth Every 4 hours as needed For Fever >100 DO NOT EXCEED 3000 MG APAP/24 Hours 2 tabs 12/20 Inactiv e 2023 12452 03190 0 Every 4 hours as needed By Mouth False Problems Code Description Start Date End [...] adjustment of urinary device 07/21/2023 Active Z79.01 [facility] (current) use of anticoagulants 07/21 Active N31.9 Neuromuscular dysfun ction of bladder, unspecified 07/21/2023 Active G82.50 Quadriplegia, unspecified 06/21/2024 Active S14.102S Unspecified injury a t C2 level of cervical spinal cord, sequela 06/21/2024 Active S14.109A Unspecified injury a t unspecified level of cervical spinal cord, initial encounter 06/21/2024 Active M62.81 Muscle weakness (generalized) 06/21/2024 Active VITAL SIGNS Date Time Diastolic blood pressure Systolic blood pressure Body height Body weight Temperature SpO2 Blood Sugar Pulse Respirations 217 35425 3 98.20 Tympanic 16883 217 86552 5 73.00 mm[Hg] - Sitting 159.00 mm[Hg] - Sitting 34618 217 14253 9 98.40 Forehead Scan 52937 218 20231 3 97.90 Tympanic 85735 218 45033 5 77.00 mm[Hg] - Sitting 137.00 mm[Hg] - Sitting 64401 219 83452 0 97.70 Tympanic 40126 219 08921 6 97.60 Tympanic 71270 219 57824 4 76.00 mm[Hg] - Sitting 139.00 mm[Hg] - Sitting 94797 219 06266 4 97.80 Forehead Scan 75284 220 85360 9 97.90 Tympanic 97780 220 83752 9 76.00 mm[Hg] - Sitting 138.00 mm[Hg] - Sitting 75383 220 79379 6 98.10 Tympanic 01782 221 88168 5 67.00 mm[Hg] - Sitting 142.00 mm[Hg] - Sitting 59199 221 22348 8 98.20 Tympanic 85286 221 91946 0 98.30 Tympanic 62268 222 74989 7 98.20 Tympanic 13129 222 33402 8 97.90 Tympanic 15805 223 45002 3 98.20 Tympanic 66608 223 24622 3 98.00 Tympanic 73809 224 65165 0 59.00 mm[Hg] - Sitting 111.00 mm[Hg] - Sitting 98.40 Forehead Scan 95.00 % 56.00/ min 18.00/min 35101 224 82147 9 98.20 Forehead Scan 15167 224 93476 3 97.90 Tympanic 42081 225 92974 4 98.20 Tympanic 47712 225 03261 8 97.50 Forehead Scan 25454 228 75937 0 55.00 mm[Hg] - Sitting 118.00 mm[Hg] - Sitting 98.40 Tympanic 69.00/ min 22776 229 98537 8 78.00 mm[Hg] - Sitting 152.00 mm[Hg] - Sitting 25274 230 45468 0 62.00 mm[Hg] - Sitting 122.00 mm[Hg] - Sitting 09687 231 14192 7 72.00 mm[Hg] - Lying Down 140.00 mm[Hg] - Lying Down 21512 101 31496 3 97.70 Forehead Scan 86688 101 58273 1 254.10 NI 69.00/ min 40293 101 61680 9 72.00 mm[Hg] - Sitting 142.00 mm[Hg] - Sitting 97.70 Tympanic 18.00/min 72560 101 66846 3 72.00 mm[Hg] - Lying Down 142.00 mm[Hg] - Lying Down 87233 102 80234 8 68.00 mm[Hg] - Lying Down 152.00 mm[Hg] - Lying Down 32810 103 45867 5 74.00 mm[Hg] - Sitting 158.00 mm[Hg] - Sitting 98516 104 87831 9 78.00 mm[Hg] - Sitting 144.00 mm[Hg] - Sitting 36797 105 78370 5 68.00 mm[Hg] - Sitting 138.00 mm[Hg] - Sitting 80262 106 50007 1 70.00 mm[Hg] - Sitting 138.00 mm[Hg] - Sitting 77739 107 74139 1 67.00 mm[Hg] - Sitting 142.00 mm[Hg] - Sitting 18838 108 63115 0 74.00 mm[Hg] - Sitting 143.00 mm[Hg] - Sitting 42060 110 68300 6 85.00 mm[Hg] - Sitting 160.00 mm[Hg] - Sitting 97.80 Tympanic 93.00 % 76.00/ min 18.00/min 00912 111 39135 1 83.00 mm[Hg] - Sitting 129.00 mm[Hg] - Sitting 98.60 Tympanic 92.00 % 71.00/ min 18.00/min 89661 111 55469 5 60.00 mm[Hg] - Sitting 114.00 mm[Hg] - Sitting 98.70 Tympanic 92.00 % 76.00/ min 18.00/min 11051 112 74804 4 55.00 mm[Hg] - Sitting 125.00 mm[Hg] - Sitting 98.60 Tympanic 91.00 % 68.00/ min 18.00/min 63656 112 57336 9 75.00 mm[Hg] - Sitting 174.00 mm[Hg] - Sitting 97.70 Tympanic 96.00 % 71.00/ min 18.00/min 68529 113 63689 2 77.00 mm[Hg] - Sitting 139.00 mm[Hg] - Sitting 98.10 Tympanic 97.00 % 81.00/ min 18.00/min 04702 113 48951 4 78.00 mm[Hg] - Sitting 153.00 mm[Hg] - Sitting 98.40 Tympanic 93.00 % 69.00/ min 18.00/min 76725 114 19610 5 76.00 mm[Hg] - Sitting 137.00 mm[Hg] - Sitting 98.10 Tympanic 97.00 % 80.00/ min 18.00/min 71374 114 67710 0 76.00 mm[Hg] - Sitting 145.00 mm[Hg] - Sitting 97.90 Tympanic 98.00 % 73.00/ min 18.00/min 28603 115 41351 3 98.40 Tympanic 39054 115 74372 5 79.00 mm[Hg] - Sitting 143.00 mm[Hg] - Sitting 97.90 Tympanic 97.00 % 85.00/ min 18.00/min 24307 115 61349 5 76.00 mm[Hg] - Sitting 135.00 mm[Hg] - Sitting 97.80 Tympanic 97.00 % 81.00/ min 18.00/min 07069 116 64256 5 97.80 Tympanic 39732 116 48343 1 98.20 Tympanic 16006 116 55545 0 82.00 mm[Hg] - Sitting 137.00 mm[Hg] - Sitting 98.20 Tympanic 97.00 % 78.00/ min 16.00/min 24080 116 62624 5 71.00 mm[Hg] - Sitting 122.00 mm[Hg] - Sitting 98.00 Tympanic 98.00 % 81.00/ min 18.00/min Immunizations Vaccine Date [...]
--- OUTSIDE RECORDS SUMMARY | 2024-07-26 11:09 | External Medical Summary | Continuity Of Care Document ---
Author Name Unknown Address [address] [place] [address] Organization [facility] () Care Team Providers Care Sample Worker Name Role Phone DO Pritchett Amy Primary Care Provider [phone] Allergies Allergy Reaction Start Date End Date Status AMINOGLYCOSIDES Active CIPRO Active GENTAMICIN Active NSAIDS (NON-STEROIDAL ANTI-INFLAMMATORY DRUG) 0 Active IBUPROFEN Active QUINOLONES Active VALIUM Active Medications Medication Instructions Dosage Start Date End Date Status Order Date Drug Code Frequency Route of Admin Diagnosis Code Substitutions Allowed Spikevax [id number](1 2y up)(PF) 50 mcg/0.5 mL intramuscul ar suspension [COVID [id number](12 up)(andu)(P F)] 0.5mL Intramuscular 1 time Monitory 15 Minutes post injection for adverse effects; record site/temp For COVID 19 PREVENTION 0.5mL 01/02 Inactiv e 2023 00459 25610 4 1 time Intram uscula r False [facility] - Nurse initials indicate verificatio n that [id number] vaccine was administere d by [facility]at jon 1 Intramuscular 1 time ( Indicate vaccine type) For vaccine 1 05/03 Inactiv e 2023 1 time Intram uscula r False Lisinopril 40 mg tablet [generic] TAKE ONE (1) TABLET BY MOUTH IN THE MORNING. For DX- HTN 1 2023 Active 2023 09105 64469 1 Once daily By Mouth False Tizanidine 2 mg tablet [generic] TAKE ONE (1) TABLET BY MOUTH ONCE DAILY For MUSCLE SPASM 1 2023 Active 2023 75125 83497 0 Once daily By Mouth M62.838 False Tamsulosin 0.4 mg capsule [generic] TAKE (1) CAPSULE BY MOUTH AT BEDTIME For SPASMS 1 2023 Active 2023 17163 26164 0 Once daily By Mouth False Aspirin 81 mg tablet Once daily 1 TABLET BY MOUTH IN THE MORNING For DX- CAD DO NOT CRUSH, CHEW OR BREAK 81 mg 06/12 Inactiv e 2023 Once daily By Mouth False Baclofen 20 mg tablet [generic] 20 mg By Mouth 4 times a day For DX- MUSCLE SPASMS 20 mg 12/12 Inactiv e 2023 69177 77914 1 4 times a day By Mouth False Calcium citrate 250 mg tablet Once daily 4 TABLET BY MOUTH For DX- SUPPLEMENT 250 mg calci 12/12 Inactiv e 2023 Once daily By Mouth False Co Q-10 100 mg capsule 100 mg By Mouth Once daily For DX- SUPPLEMENT 100 mg 06/20 Inactiv e 2023 27222 47334 5 Once daily By Mouth False Furosemide 20 mg tablet [generic] 20 mg By Mouth Once daily For DX-CHF 20 mg 12/12 Inactiv e 2023 30713 26868 0 Once daily By Mouth False Gabapentin 300 mg capsule [generic] 300 mg By Mouth 3 times a day For DX- NEUROPATHY 300 mg 12/12 Inactiv e 2023 67839 41473 4 3 times a day By Mouth False Loratadine 10 mg tablet [generic] 10 mg By Mouth Once daily For DX- ALLERGIES 10 mg 2023 Active 2023 48541 14611 1 Once daily By Mouth False Miralax 17 gram/dose oral powder 17 gram/dose By Mouth IN THE MORNING Mix 1 TABLESPOON IN 8 OZ OF FLUID HOLD FOR LOOSE STOOLS For DX- CONSTIPATION 17 gram/do se 12/12 Inactiv e 2023 46828 46960 0 Once daily By Mouth False Paroxetine 30 mg tablet [generic] 30 mg By Mouth Once daily For DX- DEPRESSION 30 mg 2023 00/00 /0000 Active 2023 38185 43054 3 Once daily By Mouth False Potassium citrate ER 15 mEq (1,620 mg) tablet,exte nded release [generic] 15 mEq By Mouth 3 times a day For DX- SUPPLEMENT/DI URETIC USE/ HYPOCITRAUIRA DO NOT CRUSH 15 mEq 12/12 Inactiv e 2023 33365 38964 1 3 times a day By Mouth [...] For DX- DANDRUFF 12/12 Inactiv e 2023 08838 62936 4 3 times a week Topica l False Acetaminoph en 325 mg tablet [generic] TAKE 2 TABS (650MG) BY MOUTH EVERY 4 HOURS NEEDED FOR TEMP >100 NOT TO EXCEED 3GM/24HRS TAKE 2 TABS (650MG) BY MOUTH EVERY 4 HOURS NEEDED FOR TEMP >100 NOT TO EXCEED 3GM/24HRS For DX-FEVER 2 12/12 Inactiv e 2023 79058 63372 0 By Mouth False MILK OF MAGNESIA ADMINISTER 30 ML BY MOUTH ONCE DAILY NEEDED FOR CONSTIPATION X3 DAYS WITH NO BM. For DX- CONSTIPATION 30ML 12/12 Inactiv e 2023 50157 61534 9 By Mouth False Enema Disposable 19 gram-7 gram/118 mL ADMINISTER ONE ENEMA RECTALLY ONCE DAILY NEEDED FOR CONSTIPATION ON DAY 6 OF NO BM For DX- CONSTIPATION 12/12 Inactiv e 2023 36087 65617 1 Rectal False TUMS EXTRA STR 750MG TAKE (1) TABLET BY MOUTH THREE TIMES DAILY NEEDED FOR INDIGESTION For DX- INDIGESTION 1 12/12 Inactiv e 2023 08256 54371 8 By Mouth False Vitamin D3 25 [...] CONSTIPATION 10 mg 12/12 Inactiv e 2023 11804 75484 1 Rectal False Melatonin 3 mg tablet [generic] 3 mg By Mouth As Needed For DX-INSOMMIA 3 mg 12/12 Inactiv e 2023 81766 66762 8 By Mouth False Hydrocortis one 1 % topical cream [generic] 1 % Topical As Needed For DX- PAIN 1 % 12/12 Inactiv e 2023 26565 21256 1 Topica l False HYDROCORTIS ONE/PARMOXI NE [...] 5-10 50 mg 12/20 Inactiv e 2023 99061 48579 0 Every 4 hours as needed By Mouth False Tylenol 325 mg tablet 325 mg By Mouth Every 4 hours as needed For DX- PAIN PRN FOR MILD PAIN, DO NOT EXCEED 3000MG APAP/24 HOURS 325 mg 12/20 Inactiv e 2023 00175 58791 0 Every 4 hours as needed By Mouth False Baclofen 20 mg tablet [generic] 20 mg By Mouth 4 times a day For MUSCLE SPASMS 20 mg 12/20 Inactiv e 2023 31675 21438 1 4 times a day By Mouth False Calcium citrate 250 mg tablet [generic] Once daily TAKE 4 TABLETS (1000MG) BY MOUTH For SUPPLEMENT 1000 MG 06/26 Inactiv e 2023 96106 61629 6 Once daily By Mouth False Dulcolax (bisacodyl) 10 mg rectal suppository 10 mg Rectal Once daily For CONSTIPATION *MAY HOLD FOR LOOSE STOOLS* 10 mg 2023 Active 2023 78221 64352 1 Once daily Rectal False Gabapentin 300 mg capsule [generic] 300 mg By Mouth 3 times a day For NEUROPATHY 300 mg 2023 Active 2023 42857 43568 4 3 times a day By Mouth False Potassium citrate ER 15 mEq (1,620 mg) tablet,exte nded release [generic] 15 mEq By Mouth 3 times a day For SUPPLEMENT/DI URETIC USE/HYPOCITRA URIA 15 mEq 06/11 Inactiv e 2023 94347 95847 1 3 times a day By Mouth False Potassium chloride ER 20 mEq tablet,exte nded release [generic] 20 mEq By Mouth 3 times a day *DO NOT CRUSH, CHEW OR BREAK* For SUPPLEMENT 20 mEq 12/18 Inactiv e 2023 58645 10239 1 3 times a day By Mouth False Tizanidine 4 mg tablet [generic] 4 mg By Mouth Once daily For MUSCLE SPASMS 4 mg 2023 Active 2023 44268 70321 0 Once daily By Mouth False Tylenol 325 mg tablet 2 tabs By Mouth Every 4 hours as needed For Fever >100 DO NOT EXCEED 3000 MG APAP/24 Hours 2 tabs 12/20 Inactiv e 2023 17962 87660 0 Every 4 hours as needed By Mouth False Dulcolax (bisacodyl) 10 mg rectal suppository Daily as needed For Constipation 1 sup 12/20 Inactiv e 2023 35754 75358 1 Daily as needed Rectal False Fleet Enema 19 gram-7 gram/118 mL 1 Rectal Daily as neededFor Constipation 1 12/20 Inactiv e 2023 36283 17878 6 Daily as needed Rectal False Milk of Magnesia 400 mg/5 mL oral suspension [Magnesium hydroxide] PRN 30ml By Mouth Daily as needed for constipation one time daily if no BM, on day 4 of no BM (PRN refer to instructions) For Constipation For Constipatioin 30ml 12/20 Inactiv e 2023 48794 55629 6 1 time By Mouth False Melatonin 3 mg tablet [generic] 3 mg By Mouth Once daily As Needed For INSOMNIA 3 mg 12/20 Inactiv e 2023 07398 85795 8 Once daily By Mouth False Hydrocortis one 1 % topical cream [generic] 1 % Rectal Four times daily as needed For hemorroid pain 1 % 12/20 Inactiv e 2023 90058 13724 1 Four times daily as needed Rectal False X-STGH ANTACID 750MG CHEW TAKE (1) TABLET BY MOUTH THREE TIMES DAILY NEEDED FOR INDIGESTION 12/20 Inactiv e 2023 80245 83659 4 Three times daily as needed Saline Mist 0.65 % nasal spray aerosol 0.65 % Nares Four times daily as needed For DRYNESS 0.65 % 12/20 Inactiv e 2023 41433 41600 8 Four times daily as needed Nares False Vicks Vaporub 4.7 %-1.2 %-2.6 % topical ointment Apply topically to chest Three times daily as needed For CONGESTION 4.7-1.2 -2.6 12/20 Inactiv e 2023 63695 59585 1 Three times daily as needed Topica l False VITAMIN D3 2000U CAP TAKE ONE (1) CAPSULE BY MOUTH DAILY* DO NOT CRUSH, CHEW OR BREAK* For Supplement 1 capsule 12/19 Inactiv e 2023 41754 28600 0 Once daily By Mouth False Potassium chloride ER 20 mEq tablet,exte nded release(par t/cryst) [generic] TAKE (1) TABLET BY MOUTH THREE TIMES DAILY (MORNING, AFTERNOON, EVENING)*DO NOT CRUSH, CHEW, OR BREAK* For SUPPLEMENT 20 MEQ 06/11 Inactiv e 2023 78165 63701 5 3 times a day By Mouth False Aspirin 81 mg tablet,camron yed release [generic] TAKE ONE (1) TABLET BY MOUTH ONCE DAILY*DO NOT CRUSH, CHEW OR BREAK* For CAD 81 MG 12/22 Inactiv e 2023 15494 66453 0 Once daily By Mouth False Furosemide 20 mg tablet [generic] TAKE 1 AND 1/2 TABLETS (30MG) BY MOUTH ONCE DAILY For CHF 30mg 2023 Active 2023 97701 92367 1 Once daily By Mouth False Polyethylen e glycol 3350 17 gram/dose oral powder [generic] MIX 17 GRAMS (1 CAPFUL) IN 60Z OF LIQUID AND DRINK BY MOUTH ONCE DAILY *HOLD FOR LOOSE STOOLS* For constipation 17 g 2023 Active 2023 47495 42564 3 Once daily By Mouth False Vitamin D3 50 mcg (2,000 unit) capsule Once daily TAKE ONE (1) CAPSULE BY MOUTH DAILY* DO NOT CRUSH, CHEW OR BREAK* For Supplement 1 capsule 02/07 Inactiv e 2023 07891 80524 2 Once daily By Mouth False Fleet Enema 19 gram-7 gram/118 mL 1 Rectal Daily as neededFor Constipation 1 2023 0000 Active 2023 44335 36276 6 Daily as needed Rectal False Tums E-X 300 mg (as calcium carbonate 750 mg) chewable tablet 1 tab By Mouth TAKE (1) TABLET BY MOUTH THREE TIMES DAILY NEEDED FOR INDIGESTION 1 tab 202300 /0000 Active 2023 70051 69865 1 Three times daily as needed By Mouth False Tylenol 325 mg tablet 2 tabs By Mouth Every 4 hours as needed For Fever >100 DO NOT EXCEED 3000 MG APAP/24 Hours 2 tabs 202300 /0000 Active 2023 03577 53842 0 Every 4 hours as needed By Mouth False Vicks Vaporub 4.7 %-1.2 %-2.6 % topical ointment Apply topically to chest Three times daily as needed For CONGESTION topical 202300 Active 2023 68567 97556 1 Three times daily as needed Topica l False Tylenol 325 mg tablet 2 tabs By Mouth Every 4 hours as needed For DX- PAIN PRN FOR MILD PAIN, DO NOT EXCEED 3000MG APAP/24 HOURS 2 tabs 202300 Active 2023 34726 71916 0 Every 4 hours as needed By Mouth False Tramadol 50 mg tablet [generic] 1 tab By Mouth Every 4 hours as needed For DX- PAIN 5-10 1 tab 03/10 Inactiv e 2023 55836 70831 0 Every 4 hours as needed By Mouth False Saline Mist 0.65 % nasal spray aerosol 2 sprays Nares Four times daily as needed For DRYNESS 2 sprays 202300 / Active 2023 92558 25614 8 Four times daily as needed Nares False Dulcolax (bisacodyl) 10 mg rectal suppository Daily as needed For Constipation 1 sup 202300 / Active 2023 16523 06610 1 Daily as needed Rectal False Hydrocortis one-pramoxi ne 1 %-1 % rectal cream [generic] 1 mague Rectal Four times daily as needed For hemorroid pain 1 mague 202300 /0000 Active 2023 40435 40162 4 Four times daily as needed Rectal False Melatonin 3 mg tablet [generic] 1 tab By Mouth At bedtime as needed For INSOMNIA 1 tab 12/24 Inactiv e 2023 53401 19865 8 At bedtime as needed By Mouth False Milk of Magnesia 400 mg/5 mL oral suspension 30ml By Mouth Daily as needed Daily as needed for constipation one time daily if no BM, on day 4 of no BM (PRN refer to instructions) For Constipation For Constipatioin 30ml 2023 Active 2023 68090 04976 2 Daily as needed By Mouth False Baclofen 20 mg tablet [generic] 20 mg By Mouth 4 times a day For MUSCLE SPASMS 20 mg 2023 Active 2023 69779 82567 1 4 times a day By Mouth False Melatonin 3 mg tablet [generic] 1 tab By Mouth At bedtime as needed For INSOMNIA 1 tab 2023 Active 2023 73689 35956 8 At bedtime as needed By Mouth False Bactrim DS 800 mg-160 mg tablet 1 tab By Mouth Twice daily For URINARY TRACT INFECTION, SITE NOT SPECIFIED 1 tab 01/06 Inactiv e 2023 49488 47472 1 Twice daily By Mouth N39.0 False Cefdinir 300 mg capsule [generic] 300 mg By Mouth Twice daily For UTI 300 mg 01/07 Inactiv e 2023 19037 61480 0 Twice daily By Mouth False Cefdinir 300 mg capsule [generic] 300 mg By Mouth Twice daily For UTI 300 mg 01/17 Inactiv e 2023 06023 02723 0 Twice daily By Mouth False Zyrtec 10 mg tablet 10 mg By Mouth Once daily For sinus congestion 10 mg 01/22 Inactiv e 2023 66681 80065 0 Once daily By Mouth False Tobramycin 0.3 %-dexametha sone 0.1 % eye drops,suspe nsion [generic] 0.3-0.1 % Left Eye 4 times a day For eye infection 0.3-0.1 % 02/05 Inactiv e 2023 18788 84015 5 4 times a day Left Eye False Fluconazole 150 mg tablet [generic] 150 mg By Mouth 1 time For yeast infection 150 mg 02/15 Inactiv e 2023 50043 27483 2 1 time By Mouth False Tramadol 50 mg tablet [generic] 1 tab By Mouth Every 4 hours as needed For DX- PAIN 5-10 1 tab 2023 00/00 /0000 Active 2023 36521 74289 0 Every 4 hours as needed By Mouth False Tobramycin 0.3 %-dexametha sone 0.1 % eye drops,suspe nsion [generic] 1 drop Left Eye 4 times a day For Inflammation of left eye 1 drop 05/08 Inactiv e 2023 78055 64420 5 4 times a day Left Eye False Voltaren Arthritis Pain 1 % topical gel 2 gm Topical Twice daily to rigth shoulder for 2 weeks For pain 2 gm 05/08 Inactiv e 2023 28148 60192 1 Twice daily Topica l False Chlorthalid one 25 mg tablet [generic] 12.5mg By Mouth Once daily For HTN 12.5mg 05/06 Inactiv e 2023 57455 21772 0 Once daily By Mouth False Chlorthalid one 25 mg tablet [generic] 12.5mg By Mouth Once daily For HTN 12.5mg 05/07 Inactiv e 2023 55018 42933 0 Once daily By Mouth False Chlorthalid one 25 mg tablet [generic] 05/07 Inactiv e 2023 58522 85272 0 Chlorthalid one 25 mg tablet [generic] 12.5mg By Mouth Once daily For HTN 12.5mg 06/26 Inactiv e 2023 33166 22748 0 Once daily By Mouth False Norvasc 5 mg tablet 5mg By Mouth Once daily, hold medication if systolic is less than 90 For HYPERTENSIVE HEART DISEASE WITHOUT HEART FAILURE 5mg 06/03 Inactiv e 2023 58202 46743 1 Once daily By Mouth I11.9 False Norvasc 5 mg tablet 5mg By Mouth Once daily, hold medication if systolic is less than 90 For HYPERTENSIVE HEART DISEASE WITHOUT HEART FAILURE 5mg 06/03 Inactiv e 2023 71360 37020 1 Once daily By Mouth I11.9 False Norvasc 5 mg tablet 5mg By Mouth Once daily, hold medication if systolic is less than 90 For HYPERTENSIVE HEART DISEASE WITHOUT HEART FAILURE 5mg 06/26 Inactiv e 2023 28083 18516 1 Once daily By Mouth I11.9 False [...] Bladder spasms 10 mg 2023 Active 2023 74355 38701 1 Once daily By Mouth False Problems Code Description Start [...] adjustment of urinary device 07/21/2023 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 07/21 Active N31.9 [...] weight Temperature SpO2 Blood Sugar Pulse Respirations 57968 217 71950 3 98.20 Tympanic 51185 217 04854 5 73.00 mm[Hg] - Sitting 159.00 mm[Hg] - Sitting 67971 217 72365 9 98.40 Forehead Scan 58183 218 87633 3 97.90 Tympanic 83074 218 23251 5 77.00 mm[Hg] - Sitting 137.00 mm[Hg] - Sitting 31362 219 75280 0 97.70 Tympanic 69022 219 46508 6 97.60 Tympanic 25365 219 09477 4 76.00 mm[Hg] - Sitting 139.00 mm[Hg] - Sitting 79479 219 35674 4 97.80 Forehead Scan 91794 220 19219 9 97.90 Tympanic 03141 220 02850 9 76.00 mm[Hg] - Sitting 138.00 mm[Hg] - Sitting 44612 220 10127 6 98.10 Tympanic 64478 221 39014 5 67.00 mm[Hg] - Sitting 142.00 mm[Hg] - Sitting 24319 221 54035 8 98.20 Tympanic 70984 221 46215 0 98.30 Tympanic 51092 222 21062 7 98.20 Tympanic 40478 222 46076 8 97.90 Tympanic 77171 223 32291 3 98.20 Tympanic 06414 223 73730 3 98.00 Tympanic 77237 224 54276 0 59.00 mm[Hg] - Sitting 111.00 mm[Hg] - Sitting 98.40 Forehead Scan 95.00 % 56.00/ min 18.00/min 85534 224 99624 9 98.20 Forehead Scan 61606 224 55003 3 97.90 Tympanic 93931 225 04467 4 98.20 Tympanic 34021 225 60339 8 97.50 Forehead Scan 86620 228 06079 0 55.00 mm[Hg] - Sitting 118.00 mm[Hg] - Sitting 98.40 Tympanic 69.00/ min 39356 229 52970 8 78.00 mm[Hg] - Sitting 152.00 mm[Hg] - Sitting 04686 230 59263 0 62.00 mm[Hg] - Sitting 122.00 mm[Hg] - Sitting 72955 231 76865 7 72.00 mm[Hg] - Lying Down 140.00 mm[Hg] - Lying Down 94033 101 76380 3 97.70 Forehead Scan 66753 101 66207 1 254.10 NI 69.00/ min 32413 101 67852 9 72.00 mm[Hg] - Sitting 142.00 mm[Hg] - Sitting 97.70 Tympanic 18.00/min 14456 101 91301 3 72.00 mm[Hg] - Lying Down 142.00 mm[Hg] - Lying Down 93419 102 31313 8 68.00 mm[Hg] - Lying Down 152.00 mm[Hg] - Lying Down 34507 103 32346 5 74.00 mm[Hg] - Sitting 158.00 mm[Hg] - Sitting 80825 104 83625 9 78.00 mm[Hg] - Sitting 144.00 mm[Hg] - Sitting 64819 105 89836 5 68.00 mm[Hg] - Sitting 138.00 mm[Hg] - Sitting 57993 106 36182 1 70.00 mm[Hg] - Sitting 138.00 mm[Hg] - Sitting 03203 107 99245 1 67.00 mm[Hg] - Sitting 142.00 mm[Hg] - Sitting 64968 108 64563 0 74.00 mm[Hg] - Sitting 143.00 mm[Hg] - Sitting 24398 110 52411 6 85.00 mm[Hg] - Sitting 160.00 mm[Hg] - Sitting 97.80 Tympanic 93.00 % 76.00/ min 18.00/min 83225 111 26133 1 83.00 mm[Hg] - Sitting 129.00 mm[Hg] - Sitting 98.60 Tympanic 92.00 % 71.00/ min 18.00/min 24658 111 69684 5 60.00 mm[Hg] - Sitting 114.00 mm[Hg] - Sitting 98.70 Tympanic 92.00 % 76.00/ min 18.00/min 82354 112 62868 4 55.00 mm[Hg] - Sitting 125.00 mm[Hg] - Sitting 98.60 Tympanic 91.00 % 68.00/ min 18.00/min 78245 112 19173 9 75.00 mm[Hg] - Sitting 174.00 mm[Hg] - Sitting 97.70 Tympanic 96.00 % 71.00/ min 18.00/min 73608 113 53015 2 77.00 mm[Hg] - Sitting 139.00 mm[Hg] - Sitting 98.10 Tympanic 97.00 % 81.00/ min 18.00/min 26282 113 03538 4 78.00 mm[Hg] - Sitting 153.00 mm[Hg] - Sitting 98.40 Tympanic 93.00 % 69.00/ min 18.00/min 58447 114 64473 5 76.00 mm[Hg] - Sitting 137.00 mm[Hg] - Sitting 98.10 Tympanic 97.00 % 80.00/ min 18.00/min 75287 114 71474 0 76.00 mm[Hg] - Sitting 145.00 mm[Hg] - Sitting 97.90 Tympanic 98.00 % 73.00/ min 18.00/min 97633 115 26655 3 98.40 Tympanic 44384 115 98455 5 79.00 mm[Hg] - Sitting 143.00 mm[Hg] - Sitting 97.90 Tympanic 97.00 % 85.00/ min 18.00/min 55748 115 92403 5 76.00 mm[Hg] - Sitting 135.00 mm[Hg] - Sitting 97.80 Tympanic 97.00 % 81.00/ min 18.00/min 92953 116 76528 5 97.80 Tympanic 49153 116 81355 1 98.20 Tympanic 01041 116 19132 0 82.00 mm[Hg] - Sitting 137.00 mm[Hg] - Sitting 98.20 Tympanic 97.00 % 78.00/ min 16.00/min Immunizations Vaccine Date Status COVID-19 [...]
--- OUTSIDE RECORDS SUMMARY | 2024-07-26 11:09 | External Medical Summary | Continuity Of Care Document ---
Author Name Unknown Address [address] [place] [address] Organization [facility] () Care Team Providers Care Theater Technician Name Role Phone DO Pritchett Amy Primary Care Provider [phone] Allergies Allergy Reaction Start Date End Date Status AMINOGLYCOSIDES Active CIPRO Active GENTAMICIN Active NSAIDS (NON-STEROIDAL ANTI-INFLAMMATORY DRUG) 0 Active IBUPROFEN Active QUINOLONES Active VALIUM Active Medications Medication Instructions Dosage Start Date End Date Status Order Date Drug Code Frequency Route of Admin Diagnosis Code Substitutions Allowed Spikevax [id number](1 2y up)(PF) 50 mcg/0.5 mL intramuscul ar suspension [COVID [id number](12 up)(andu)(P F)] 0.5mL Intramuscular 1 time Monitory 15 Minutes post injection for adverse effects; record site/temp For COVID 19 PREVENTION 0.5mL 01/02 Inactiv e 2023 33059 78857 4 1 time Intram uscula r False [facility] - Nurse initials indicate verificatio n that [id number] vaccine was administere d by [facility] jon 1 Intramuscular 1 time ( Indicate vaccine type) For vaccine 1 05/03 Inactiv e 2023 1 time Intram uscula r False Lisinopril 40 mg tablet [generic] TAKE ONE (1) TABLET BY MOUTH IN THE MORNING. For DX- HTN 1 2023 Active 2023 61906 11319 1 Once daily By Mouth False Tizanidine 2 mg tablet [generic] TAKE ONE (1) TABLET BY MOUTH ONCE DAILY For MUSCLE SPASM 1 2023 Active 2023 50117 74418 0 Once daily By Mouth M62.838 False Tamsulosin 0.4 mg capsule [generic] TAKE (1) CAPSULE BY MOUTH AT BEDTIME For SPASMS 1 2023 Active 2023 38352 21594 0 Once daily By Mouth False Aspirin 81 mg tablet Once daily 1 TABLET BY MOUTH IN THE MORNING For DX- CAD DO NOT CRUSH, CHEW OR BREAK 81 mg 06/12 Inactiv e 2023 Once daily By Mouth False Baclofen 20 mg tablet [generic] 20 mg By Mouth 4 times a day For DX- MUSCLE SPASMS 20 mg 12/12 Inactiv e 2023 59982 43212 1 4 times a day By Mouth False Calcium citrate 250 mg tablet Once daily 4 TABLET BY MOUTH For DX- SUPPLEMENT 250 mg calci 12/12 Inactiv e 2023 Once daily By Mouth False Co Q-10 100 mg capsule 100 mg By Mouth Once daily For DX- SUPPLEMENT 100 mg 06/20 Inactiv e 2023 74834 89029 5 Once daily By Mouth False Furosemide 20 mg tablet [generic] 20 mg By Mouth Once daily For DX-CHF 20 mg 12/12 Inactiv e 2023 05511 55280 0 Once daily By Mouth False Gabapentin 300 mg capsule [generic] 300 mg By Mouth 3 times a day For DX- NEUROPATHY 300 mg 12/12 Inactiv e 2023 59631 22852 4 3 times a day By Mouth False Loratadine 10 mg tablet [generic] 10 mg By Mouth Once daily For DX- ALLERGIES 10 mg 2023 Active 2023 05853 30010 1 Once daily By Mouth False Miralax 17 gram/dose oral powder 17 gram/dose By Mouth IN THE MORNING Mix 1 TABLESPOON IN 8 OZ OF FLUID HOLD FOR LOOSE STOOLS For DX- CONSTIPATION 17 gram/do se 12/12 Inactiv e 2023 61446 20613 0 Once daily By Mouth False Paroxetine 30 mg tablet [generic] 30 mg By Mouth Once daily For DX- DEPRESSION 30 mg 2023 00/00 /0000 Active 2023 17520 30321 3 Once daily By Mouth False Potassium citrate ER 15 mEq (1,620 mg) tablet,exte nded release [generic] 15 mEq By Mouth 3 times a day For DX- SUPPLEMENT/DI URETIC USE/ HYPOCITRAUIRA DO NOT CRUSH 15 mEq 12/12 Inactiv e 2023 22119 83515 1 3 times a day By Mouth [...] For DX- DANDRUFF 12/12 Inactiv e 2023 58133 62823 4 3 times a week Topica l False Acetaminoph en 325 mg tablet [generic] TAKE 2 TABS (650MG) BY MOUTH EVERY 4 HOURS NEEDED FOR TEMP >100 NOT TO EXCEED 3GM/24HRS TAKE 2 TABS (650MG) BY MOUTH EVERY 4 HOURS NEEDED FOR TEMP >100 NOT TO EXCEED 3GM/24HRS For DX-FEVER 2 12/12 Inactiv e 2023 27622 68262 0 By Mouth False MILK OF MAGNESIA ADMINISTER 30 ML BY MOUTH ONCE DAILY NEEDED FOR CONSTIPATION X3 DAYS WITH NO BM. For DX- CONSTIPATION 30ML 12/12 Inactiv e 2023 73525 23043 9 By Mouth False Enema Disposable 19 gram-7 gram/118 mL ADMINISTER ONE ENEMA RECTALLY ONCE DAILY NEEDED FOR CONSTIPATION ON DAY 6 OF NO BM For DX- CONSTIPATION 12/12 Inactiv e 2023 52626 46866 1 Rectal False TUMS EXTRA STR 750MG TAKE (1) TABLET BY MOUTH THREE TIMES DAILY NEEDED FOR INDIGESTION For DX- INDIGESTION 1 12/12 Inactiv e 2023 06551 07629 8 By Mouth False Vitamin D3 25 [...] CONSTIPATION 10 mg 12/12 Inactiv e 2023 67252 74727 1 Rectal False Melatonin 3 mg tablet [generic] 3 mg By Mouth As Needed For DX-INSOMMIA 3 mg 12/12 Inactiv e 2023 71364 94725 8 By Mouth False Hydrocortis one 1 % topical cream [generic] 1 % Topical As Needed For DX- PAIN 1 % 12/12 Inactiv e 2023 02603 49937 1 Topica l False HYDROCORTIS ONE/PARMOXI NE [...] 5-10 50 mg 12/20 Inactiv e 2023 10572 37347 0 Every 4 hours as needed By Mouth False Tylenol 325 mg tablet 325 mg By Mouth Every 4 hours as needed For DX- PAIN PRN FOR MILD PAIN, DO NOT EXCEED 3000MG APAP/24 HOURS 325 mg 12/20 Inactiv e 2023 82848 75646 0 Every 4 hours as needed By Mouth False Baclofen 20 mg tablet [generic] 20 mg By Mouth 4 times a day For MUSCLE SPASMS 20 mg 12/20 Inactiv e 2023 31767 99594 1 4 times a day By Mouth False Calcium citrate 250 mg tablet [generic] Once daily TAKE 4 TABLETS (1000MG) BY MOUTH For SUPPLEMENT 1000 MG 06/26 Inactiv e 2023 57159 73867 6 Once daily By Mouth False Dulcolax (bisacodyl) 10 mg rectal suppository 10 mg Rectal Once daily For CONSTIPATION *MAY HOLD FOR LOOSE STOOLS* 10 mg 2023 Active 2023 37501 03976 1 Once daily Rectal False Gabapentin 300 mg capsule [generic] 300 mg By Mouth 3 times a day For NEUROPATHY 300 mg 2023 Active 2023 81185 20305 4 3 times a day By Mouth False Potassium citrate ER 15 mEq (1,620 mg) tablet,exte nded release [generic] 15 mEq By Mouth 3 times a day For SUPPLEMENT/DI URETIC USE/HYPOCITRA URIA 15 mEq 06/11 Inactiv e 2023 93442 56613 1 3 times a day By Mouth False Potassium chloride ER 20 mEq tablet,exte nded release [generic] 20 mEq By Mouth 3 times a day *DO NOT CRUSH, CHEW OR BREAK* For SUPPLEMENT 20 mEq 12/18 Inactiv e 2023 22159 97381 1 3 times a day By Mouth False Tizanidine 4 mg tablet [generic] 4 mg By Mouth Once daily For MUSCLE SPASMS 4 mg 2023 Active 2023 39161 16394 0 Once daily By Mouth False Tylenol 325 mg tablet 2 tabs By Mouth Every 4 hours as needed For Fever >100 DO NOT EXCEED 3000 MG APAP/24 Hours 2 tabs 12/20 Inactiv e 2023 77492 43236 0 Every 4 hours as needed By Mouth False Dulcolax (bisacodyl) 10 mg rectal suppository Daily as needed For Constipation 1 sup 12/20 Inactiv e 2023 01593 22840 1 Daily as needed Rectal False Fleet Enema 19 gram-7 gram/118 mL 1 Rectal Daily as neededFor Constipation 1 12/20 Inactiv e 2023 81001 98167 6 Daily as needed Rectal False Milk of Magnesia 400 mg/5 mL oral suspension [Magnesium hydroxide] PRN 30ml By Mouth Daily as needed for constipation one time daily if no BM, on day 4 of no BM (PRN refer to instructions) For Constipation For Constipatioin 30ml 12/20 Inactiv e 2023 93518 68178 6 1 time By Mouth False Melatonin 3 mg tablet [generic] 3 mg By Mouth Once daily As Needed For INSOMNIA 3 mg 12/20 Inactiv e 2023 74181 76223 8 Once daily By Mouth False Hydrocortis one 1 % topical cream [generic] 1 % Rectal Four times daily as needed For hemorroid pain 1 % 12/20 Inactiv e 2023 85618 68111 1 Four times daily as needed Rectal False X-STGH ANTACID 750MG CHEW TAKE (1) TABLET BY MOUTH THREE TIMES DAILY NEEDED FOR INDIGESTION 12/20 Inactiv e 2023 47254 84700 4 Three times daily as needed Saline Mist 0.65 % nasal spray aerosol 0.65 % Nares Four times daily as needed For DRYNESS 0.65 % 12/20 Inactiv e 2023 78608 58009 8 Four times daily as needed Nares False Vicks Vaporub 4.7 %-1.2 %-2.6 % topical ointment Apply topically to chest Three times daily as needed For CONGESTION 4.7-1.2 -2.6 12/20 Inactiv e 2023 02740 67591 1 Three times daily as needed Topica l False VITAMIN D3 2000U CAP TAKE ONE (1) CAPSULE BY MOUTH DAILY* DO NOT CRUSH, CHEW OR BREAK* For Supplement 1 capsule 12/19 Inactiv e 2023 24836 25569 0 Once daily By Mouth False Potassium chloride ER 20 mEq tablet,exte nded release(par t/cryst) [generic] TAKE (1) TABLET BY MOUTH THREE TIMES DAILY (MORNING, AFTERNOON, EVENING)*DO NOT CRUSH, CHEW, OR BREAK* For SUPPLEMENT 20 MEQ 06/11 Inactiv e 2023 22995 92762 5 3 times a day By Mouth False Aspirin 81 mg tablet,camron yed release [generic] TAKE ONE (1) TABLET BY MOUTH ONCE DAILY*DO NOT CRUSH, CHEW OR BREAK* For CAD 81 MG 12/22 Inactiv e 2023 79784 59326 0 Once daily By Mouth False Furosemide 20 mg tablet [generic] TAKE 1 AND 1/2 TABLETS (30MG) BY MOUTH ONCE DAILY For CHF 30mg 2023 Active 2023 33020 83177 1 Once daily By Mouth False Polyethylen e glycol 3350 17 gram/dose oral powder [generic] MIX 17 GRAMS (1 CAPFUL) IN 60Z OF LIQUID AND DRINK BY MOUTH ONCE DAILY *HOLD FOR LOOSE STOOLS* For constipation 17 g 2023 Active 2023 54757 51346 3 Once daily By Mouth False Vitamin D3 50 mcg (2,000 unit) capsule Once daily TAKE ONE (1) CAPSULE BY MOUTH DAILY* DO NOT CRUSH, CHEW OR BREAK* For Supplement 1 capsule 02/07 Inactiv e 2023 98669 06335 2 Once daily By Mouth False Fleet Enema 19 gram-7 gram/118 mL 1 Rectal Daily as neededFor Constipation 1 2023 0000 Active 2023 75155 80936 6 Daily as needed Rectal False Tums E-X 300 mg (as calcium carbonate 750 mg) chewable tablet 1 tab By Mouth TAKE (1) TABLET BY MOUTH THREE TIMES DAILY NEEDED FOR INDIGESTION 1 tab 202300 /0000 Active 2023 22619 45676 1 Three times daily as needed By Mouth False Tylenol 325 mg tablet 2 tabs By Mouth Every 4 hours as needed For Fever >100 DO NOT EXCEED 3000 MG APAP/24 Hours 2 tabs 202300 /0000 Active 2023 00897 06901 0 Every 4 hours as needed By Mouth False Vicks Vaporub 4.7 %-1.2 %-2.6 % topical ointment Apply topically to chest Three times daily as needed For CONGESTION topical 202300 Active 2023 19762 08296 1 Three times daily as needed Topica l False Tylenol 325 mg tablet 2 tabs By Mouth Every 4 hours as needed For DX- PAIN PRN FOR MILD PAIN, DO NOT EXCEED 3000MG APAP/24 HOURS 2 tabs 202300 Active 2023 59805 99157 0 Every 4 hours as needed By Mouth False Tramadol 50 mg tablet [generic] 1 tab By Mouth Every 4 hours as needed For DX- PAIN 5-10 1 tab 03/10 Inactiv e 2023 69863 19362 0 Every 4 hours as needed By Mouth False Saline Mist 0.65 % nasal spray aerosol 2 sprays Nares Four times daily as needed For DRYNESS 2 sprays 202300 / Active 2023 22188 79758 8 Four times daily as needed Nares False Dulcolax (bisacodyl) 10 mg rectal suppository Daily as needed For Constipation 1 sup 202300 / Active 2023 31642 11887 1 Daily as needed Rectal False Hydrocortis one-pramoxi ne 1 %-1 % rectal cream [generic] 1 mague Rectal Four times daily as needed For hemorroid pain 1 mague 202300 /0000 Active 2023 23785 17021 4 Four times daily as needed Rectal False Melatonin 3 mg tablet [generic] 1 tab By Mouth At bedtime as needed For INSOMNIA 1 tab 12/24 Inactiv e 2023 27891 70392 8 At bedtime as needed By Mouth False Milk of Magnesia 400 mg/5 mL oral suspension 30ml By Mouth Daily as needed Daily as needed for constipation one time daily if no BM, on day 4 of no BM (PRN refer to instructions) For Constipation For Constipatioin 30ml 2023 Active 2023 64824 81644 2 Daily as needed By Mouth False Baclofen 20 mg tablet [generic] 20 mg By Mouth 4 times a day For MUSCLE SPASMS 20 mg 2023 Active 2023 78795 67867 1 4 times a day By Mouth False Melatonin 3 mg tablet [generic] 1 tab By Mouth At bedtime as needed For INSOMNIA 1 tab 2023 Active 2023 36333 79827 8 At bedtime as needed By Mouth False Bactrim DS 800 mg-160 mg tablet 1 tab By Mouth Twice daily For URINARY TRACT INFECTION, SITE NOT SPECIFIED 1 tab 01/06 Inactiv e 2023 52725 94360 1 Twice daily By Mouth N39.0 False Cefdinir 300 mg capsule [generic] 300 mg By Mouth Twice daily For UTI 300 mg 01/07 Inactiv e 2023 52171 95607 0 Twice daily By Mouth False Cefdinir 300 mg capsule [generic] 300 mg By Mouth Twice daily For UTI 300 mg 01/17 Inactiv e 2023 50156 15302 0 Twice daily By Mouth False Zyrtec 10 mg tablet 10 mg By Mouth Once daily For sinus congestion 10 mg 01/22 Inactiv e 2023 80190 89909 0 Once daily By Mouth False Tobramycin 0.3 %-dexametha sone 0.1 % eye drops,suspe nsion [generic] 0.3-0.1 % Left Eye 4 times a day For eye infection 0.3-0.1 % 02/05 Inactiv e 2023 10669 60078 5 4 times a day Left Eye False Fluconazole 150 mg tablet [generic] 150 mg By Mouth 1 time For yeast infection 150 mg 02/15 Inactiv e 2023 23557 17142 2 1 time By Mouth False Tramadol 50 mg tablet [generic] 1 tab By Mouth Every 4 hours as needed For DX- PAIN 5-10 1 tab 2023 00/00 /0000 Active 2023 50721 29717 0 Every 4 hours as needed By Mouth False Tobramycin 0.3 %-dexametha sone 0.1 % eye drops,suspe nsion [generic] 1 drop Left Eye 4 times a day For Inflammation of left eye 1 drop 05/08 Inactiv e 2023 47169 14255 5 4 times a day Left Eye False Voltaren Arthritis Pain 1 % topical gel 2 gm Topical Twice daily to rigth shoulder for 2 weeks For pain 2 gm 05/08 Inactiv e 2023 84688 27305 1 Twice daily Topica l False Chlorthalid one 25 mg tablet [generic] 12.5mg By Mouth Once daily For HTN 12.5mg 05/06 Inactiv e 2023 58947 77424 0 Once daily By Mouth False Chlorthalid one 25 mg tablet [generic] 12.5mg By Mouth Once daily For HTN 12.5mg 05/07 Inactiv e 2023 48164 64545 0 Once daily By Mouth False Chlorthalid one 25 mg tablet [generic] 05/07 Inactiv e 2023 99228 41944 0 Chlorthalid one 25 mg tablet [generic] 12.5mg By Mouth Once daily For HTN 12.5mg 06/26 Inactiv e 2023 63857 32202 0 Once daily By Mouth False Norvasc 5 mg tablet 5mg By Mouth Once daily, hold medication if systolic is less than 90 For HYPERTENSIVE HEART DISEASE WITHOUT HEART FAILURE 5mg 06/03 Inactiv e 2023 19555 75962 1 Once daily By Mouth I11.9 False Norvasc 5 mg tablet 5mg By Mouth Once daily, hold medication if systolic is less than 90 For HYPERTENSIVE HEART DISEASE WITHOUT HEART FAILURE 5mg 06/03 Inactiv e 2023 19814 48726 1 Once daily By Mouth I11.9 False Norvasc 5 mg tablet 5mg By Mouth Once daily, hold medication if systolic is less than 90 For HYPERTENSIVE HEART DISEASE WITHOUT HEART FAILURE 5mg 06/26 Inactiv e 2023 17818 28373 1 Once daily By Mouth I11.9 False [...] daily For Bladder spasms 10 mg 2023 00/00 /0000 Active 2023 66756 99643 1 Once daily By Mouth False DISCONTINUE [...] CAD 81 mg 06/14 Inactiv e 2023 07139 89804 9 Once daily By Mouth False Aspirin 81 mg tablet,camron yed release [generic] 06/14 Inactiv e 2023 51909 02030 9 Aspirin 81 mg tablet,camron yed release [generic] 81 mg By Mouth Once daily Do not crush, chew, or break For CAD 81 mg 06/154 Inactiv e 2023 09085 96446 9 Once daily By Mouth False Cefpodoxime 200 mg tablet [generic] 200mg By Mouth Twice daily For UTI 200mg 07/04 Inactiv e 2023 23796 51081 0 Twice daily By Mouth False Calcium citrate 250 mg tablet [generic] 06/26 Inactiv e 2023 67024 21088 6 Calcium citrate 250 mg tablet [generic] Once daily TAKE 4 TABLETS (1000MG) BY MOUTH For SUPPLEMENT 500 MG 2023 Active 2023 33798 62106 6 Once daily By Mouth False Norvasc 5 mg tablet 7.5 mg By Mouth Once daily Hold medication if SBP <90 For HYPERTENSIVE HEART DISEASE WITHOUT HEART FAILURE 7.5 mg 06/30 Inactiv e 2023 97764 73817 1 Once daily By Mouth I11.9 False Norvasc 5 mg tablet 7.5 mg By Mouth Once daily Hold medication if SBP <90 For HYPERTENSIVE HEART DISEASE WITHOUT HEART FAILURE 7.5 mg 07/06 Inactiv e 2023 57207 98152 1 Once daily By Mouth I11.9 False Simethicone 125 mg capsule [generic] 2 capule By Mouth Twice daily as needed For bloating/gas pain 2 capule 2023 Active 2023 50628 09347 0 Twice daily as needed By Mouth False Cepacol Sore Throat (benzocaine -menthol) 15 mg-2.6 mg lozenges 2 lozenges By Mouth Every 6 hours as needed For sore throat 2 lozenge s 2023 Active 2023 88044 20226 6 Every 6 hours as needed By Mouth False Cefepime 1 gram solution for injection [generic] 1g Intramuscular Every 12 hours 1g intramuscular ly ever 12 hours For UTI 1g 07/06 Inactiv e 2023 18035 77193 4 Every 12 hours Intram uscula r False Cefepime 1 gram solution for injection [generic] 07/06 Inactiv e 2023 95853 38015 4 Cefepime 1 gram solution for injection [generic] 1g Intramuscular Every 12 hours 1g intramuscular ly ever 12 hours For UTI Reconstitute with 2.4 ML of NSS. 1g 07/08 Inactiv e 2023 26370 05458 4 Every 12 hours Intram uscula r False Norvasc 5 mg tablet 07/06 Inactiv e 2023 96276 55663 1 I11.9 Norvasc 5 mg tablet 7.5 mg By Mouth Once daily Hold medication if SBP <90 For HYPERTENSIVE HEART DISEASE WITHOUT HEART FAILURE 7.5 mg 07/18 Inactiv e 2023 19947 86598 1 Once daily By Mouth I11.9 False Cefepime 1 gram solution for injection [generic] 07/08 Inactiv e 2023 31447 55301 4 Cefepime 1 gram solution for injection [generic] 1g Intramuscular Every 12 hours 1g intramuscular ly ever 12 hours For UTI Reconstitute with 2.4 ML of NSS. 1g 07/08 Inactiv e 2023 98859 36927 4 Every 12 hours Intram uscula r False Cefepime 1 gram solution for injection [generic] 07/08 Inactiv e 2023 68867 38589 4 Cefepime 1 gram solution for injection [generic] 1g Intramuscular Every 12 hours 1g intramuscular ly ever 12 hours For UTI Reconstitute with 2.4 ML of NSS. 1g 07/11 Inactiv e 2023 63963 72395 4 Every 12 hours Intram uscula r False Fleet Enema 19 gram-7 gram/118 mL 1 Rectal 1 time For constipation 1 07/16 Inactiv e 2024 39857 10988 6 1 time Rectal False Fleet Enema 19 gram-7 gram/118 mL 1 Rectal 1 time For constipation 1 07/17 Inactiv e 2024 20506 70937 6 1 time Rectal False Norvasc 5 mg tablet 7.5 mg By Mouth Once daily For HYPERTENSIVE HEART DISEASE WITHOUT HEART FAILURE 7.5 mg 2024 00/00 /0000 Active 2024 47056 29799 1 Once daily By Mouth I11.9 False Potassium chloride ER 20 mEq tablet,exte nded release(par t/cryst) [generic] 40 mEq By Mouth 1 time For low potassium prior to surgery 40 mEq 07/18 Inactiv e 2024 01647 64784 1 1 time By Mouth False Potassium chloride ER 20 mEq tablet,exte nded release(par t/cryst) [generic] 40 mEq By Mouth 1 time For low potassium prior to surgery 40 mEq 07/18 Inactiv e 2024 29375 83385 1 1 time By Mouth False Potassium chloride ER 20 mEq tablet,exte nded release(par t/cryst) [generic] 40 mEq By Mouth 1 time For low potassium 40 mEq 07/18 Inactiv e 2024 83161 93618 1 1 time By Mouth False Potassium chloride ER 20 mEq tablet,exte nded release(par t/cryst) [generic] 40 mEq By Mouth 1 time For low potassium 40 mEq 07/18 Inactiv e 2024 25845 06256 1 1 time By Mouth False Potassium chloride ER 20 mEq tablet,exte nded release [generic] 2 By Mouth 1 time For low potassium 2 07/19 Inactiv e 2024 55466 74213 1 1 time By Mouth False Potassium chloride ER 20 mEq tablet,exte nded release [generic] 2 capsules capsules By Mouth 1 time Please send capsule (2 capsules) For low potassium 2 capsule s 07/20 Inactiv e 2024 99535 20577 1 1 time By Mouth False Potassium chloride ER 20 mEq tablet,exte nded release(par t/cryst) [generic] TAKE (2) TABLETS (40MEQ) BY MOUTH X1 DOSE 07/20 Inactiv e 2024 66104 97312 5 Cefepime 1 gram solution for injection [generic] 1 gram Intramuscular Every 12 hours For Urinary Tract Infection 1 gram 07/21 Inactiv e 2024 82065 56481 4 Every 12 hours Intram uscula r False Cefepime 1 gram solution for injection [generic] 07/21 Inactiv e 2024 99188 13901 4 Cefepime 1 gram solution for injection [generic] 1 gram Intramuscular Every 12 hours For Urinary Tract Infection 1 gram 07/22 Inactiv e 2024 69005 82491 4 Every 12 hours Intram uscula r False Cefepime 1 gram solution for injection [generic] 1 gram Intramuscular Every 12 hours For Urinary Tract Infection 1 gram 07/24 Inactiv e 2024 54148 98893 4 Every 12 hours Intram uscula r False Klor-Con 10 mEq tablet,exte nded release Klor- Con GIVE 2 Capsules daily Do NOT SEND Tablets Requesting Micro K 10 meq capsules For hyponatremia 2 capsule s 2024 00/00 /0000 Active 2024 55337 23071 1 Once daily By Mouth False Cefepime 1 gram solution for injection [generic] 1 gram Intramuscular Every 12 hours For Urinary Tract Infection 1 gram 07/24 Inactiv e 2024 19843 56751 4 Every 12 hours Intram uscula r False Cefepime 1 gram solution for injection [generic] 1 gram Intramuscular Every 12 hours For Urinary Tract Infection 1 gram 07/24 Inactiv e 2024 24968 13725 4 Every 12 hours Intram uscula r False Cefepime 1 gram solution for injection [generic] 1 gram Intramuscular Every 12 hours For Urinary Tract Infection 1 gram 07/25 Inactiv e 2024 73969 08310 4 Every 12 hours Intram uscula r False Cefepime 1 gram solution for injection [generic] 07/25 Inactiv e 2024 93523 08904 4 Cefepime 1 gram solution for injection [generic] 1 gram Intramuscular Every 12 hours For Urinary Tract Infection 1 gram 2024 Active 2024 40391 51994 4 Every 12 hours Intram uscula r False Nystatin 100,000 unit/gram topical cream [generic] 100,000 unit Topical As Needed For DX- EXCORIATION 100,000 unit 12/12 Inactiv e 2023 88573 46701 5 Topica l False Vicks Vaporub 4.7 %-1.2 %-2.6 % topical ointment 4.7-1.2-2.6 Topical 3 times a day As Needed For DX- CONGESTION 4.7-1.2 -2.6 12/12 Inactiv e 2023 75146 99144 1 3 times a day Topica l False Ketoconazol e 2 % shampoo [generic] APPLY SHAMPOO TOPICALLY TO SCALP DURING HAIR WASHINGDX: ELVIA DERM OF SCALP For DX- ELVIA DERM OF SCALP 12/12 Inactiv e 2023 40941 07660 4 Topica l False THERA SILICONE SKIN GUARD Topical Twice daily 1 APPLICATION TOPICALLY IN THE MORNING AND AT BEDTIME TO SCROTUM For DX- PREVENTION 2023 Active 2023 Twice daily Topica l False Selenium sulfide 2.5 % lotion [generic] 2.5 % Topical EVERY MONDAY, MONDAY AND MONDAY AFTER SHOWER For DANDRUFF 2.5 % 2023 Active 2023 14252 72862 4 3 times a week Topica l False Nystatin (bulk) 100 million unit powder [generic] 100 million Topical Twice daily as needed For EXOCORATION 100 million 12/20 Inactiv e 2023 84726 96762 1 Twice daily as needed Topica l False Ketoconazol e 2 % shampoo [generic] Once daily APPLY SHAMPOO TOPICALLY TO SCALP DURING HAIR WASHING ON SHOWER DAYS- , , MON For ELVIA DERM OF SCAP 2 % 2023 Active 2023 67811 09746 4 Once daily Topica l False Nystatin 100,000 unit/gram topical cream [generic] 1 mague Topical Twice daily as needed For EXOCORATION 1 mague 06/05 Inactiv e 2023 29585 72751 5 Twice daily as needed Topica l False Nystatin 100,000 unit/gram topical powder [generic] 100,000 unit Topical Twice daily to scrotum with AM and PM care For Scrotal excoriation 100,000 unit 06/05 Inactiv e 2023 07231 17191 5 Twice daily Topica l False Problems [...] weight Temperature SpO2 Blood Sugar Pulse Respirations 95699 217 14901 3 98.20 Tympanic 07012 217 77700 5 73.00 mm[Hg] - Sitting 159.00 mm[Hg] - Sitting 92896 217 15408 9 98.40 Forehead Scan 28573 218 77607 3 97.90 Tympanic 69058 218 06333 5 77.00 mm[Hg] - Sitting 137.00 mm[Hg] - Sitting 51368 219 90648 0 97.70 Tympanic 59072 219 90944 6 97.60 Tympanic 44275 219 99669 4 76.00 mm[Hg] - Sitting 139.00 mm[Hg] - Sitting 37868 219 03964 4 97.80 Forehead Scan 45930 220 82386 9 97.90 Tympanic 47322 220 65766 9 76.00 mm[Hg] - Sitting 138.00 mm[Hg] - Sitting 45261 220 99877 6 98.10 Tympanic 57047 221 97659 5 67.00 mm[Hg] - Sitting 142.00 mm[Hg] - Sitting 29046 221 97172 8 98.20 Tympanic 47471 221 57299 0 98.30 Tympanic 36658 222 97133 7 98.20 Tympanic 91290 222 63885 8 97.90 Tympanic 67686 223 76737 3 98.20 Tympanic 03357 223 70569 3 98.00 Tympanic 60958 224 48065 0 59.00 mm[Hg] - Sitting 111.00 mm[Hg] - Sitting 98.40 Forehead Scan 95.00 % 56.00/ min 18.00/min 96546 224 34398 9 98.20 Forehead Scan 81125 224 09360 3 97.90 Tympanic 12761 225 13378 4 98.20 Tympanic 82800 225 46538 8 97.50 Forehead Scan 82948 228 32793 0 55.00 mm[Hg] - Sitting 118.00 mm[Hg] - Sitting 98.40 Tympanic 69.00/ min 65718 229 49682 8 78.00 mm[Hg] - Sitting 152.00 mm[Hg] - Sitting 07429 230 04210 0 62.00 mm[Hg] - Sitting 122.00 mm[Hg] - Sitting 77774 231 49318 7 72.00 mm[Hg] - Lying Down 140.00 mm[Hg] - Lying Down 45031 101 95189 3 97.70 Forehead Scan 59184 101 85387 1 254.10 NI 69.00/ min 35297 101 71132 9 72.00 mm[Hg] - Sitting 142.00 mm[Hg] - Sitting 97.70 Tympanic 18.00/min 54590 101 92789 3 72.00 mm[Hg] - Lying Down 142.00 mm[Hg] - Lying Down 26907 102 67418 8 68.00 mm[Hg] - Lying Down 152.00 mm[Hg] - Lying Down 33666 103 95196 5 74.00 mm[Hg] - Sitting 158.00 mm[Hg] - Sitting 09433 104 18017 9 78.00 mm[Hg] - Sitting 144.00 mm[Hg] - Sitting 87387 105 71559 5 68.00 mm[Hg] - Sitting 138.00 mm[Hg] - Sitting 41842 106 12798 1 70.00 mm[Hg] - Sitting 138.00 mm[Hg] - Sitting 43774 107 08691 1 67.00 mm[Hg] - Sitting 142.00 mm[Hg] - Sitting 82965 108 61142 0 74.00 mm[Hg] - Sitting 143.00 mm[Hg] - Sitting 20243 110 27135 6 85.00 mm[Hg] - Sitting 160.00 mm[Hg] - Sitting 97.80 Tympanic 93.00 % 76.00/ min 18.00/min 64328 111 23152 1 83.00 mm[Hg] - Sitting 129.00 mm[Hg] - Sitting 98.60 Tympanic 92.00 % 71.00/ min 18.00/min 32098 111 22877 5 60.00 mm[Hg] - Sitting 114.00 mm[Hg] - Sitting 98.70 Tympanic 92.00 % 76.00/ min 18.00/min 24428 112 42620 4 55.00 mm[Hg] - Sitting 125.00 mm[Hg] - Sitting 98.60 Tympanic 91.00 % 68.00/ min 18.00/min 01566 112 95794 9 75.00 mm[Hg] - Sitting 174.00 mm[Hg] - Sitting 97.70 Tympanic 96.00 % 71.00/ min 18.00/min 59803 113 26708 2 77.00 mm[Hg] - Sitting 139.00 mm[Hg] - Sitting 98.10 Tympanic 97.00 % 81.00/ min 18.00/min 93960 113 10117 4 78.00 mm[Hg] - Sitting 153.00 mm[Hg] - Sitting 98.40 Tympanic 93.00 % 69.00/ min 18.00/min 26121 114 54428 5 76.00 mm[Hg] - Sitting 137.00 mm[Hg] - Sitting 98.10 Tympanic 97.00 % 80.00/ min 18.00/min 33004 114 90140 0 76.00 mm[Hg] - Sitting 145.00 mm[Hg] - Sitting 97.90 Tympanic 98.00 % 73.00/ min 18.00/min 73097 115 12940 3 98.40 Tympanic 37565 115 95355 5 79.00 mm[Hg] - Sitting 143.00 mm[Hg] - Sitting 97.90 Tympanic 97.00 % 85.00/ min 18.00/min 28544 115 18667 5 76.00 mm[Hg] - Sitting 135.00 mm[Hg] [...]
--- OUTSIDE RECORDS SUMMARY | 2024-07-26 11:09 | External Medical Summary | Continuity Of Care Document ---
Author Name Unknown Address [address] [place] [address] Organization [facility] () Care Team Providers Care Coil Repair Technician Name Role Phone DO Pritchett Amy Primary Care Provider [phone] Allergies Allergy Reaction Start Date End Date Status AMINOGLYCOSIDES Active CIPRO Active GENTAMICIN Active NSAIDS (NON-STEROIDAL ANTI-INFLAMMATORY DRUG) 0 Active IBUPROFEN Active QUINOLONES Active VALIUM Active Medications Medication Instructions Dosage Start Date End Date Status Order Date Drug Code Frequency Route of Admin Diagnosis Code Substitutions Allowed Spikevax [id number](1 2y up)(PF) 50 mcg/0.5 mL intramuscul ar suspension [COVID [id number](12 up)(andu)(P F)] 0.5mL Intramuscular 1 time Monitory 15 Minutes post injection for adverse effects; record site/temp For COVID 19 PREVENTION 0.5mL 01/02 Inactiv e 2023 93113 04794 4 1 time Intram uscula r False [facility] - Nurse initials indicate verificatio n that [id number] vaccine was administere d by [facility] 1 Intramuscular 1 time ( Indicate vaccine type) For vaccine 1 05/03 Inactiv e 2023 1 time Intram uscula r False Lisinopril 40 mg tablet [generic] TAKE ONE (1) TABLET BY MOUTH IN THE MORNING. For DX- HTN 1 2023 Active 2023 30784 82863 1 Once daily By Mouth False Tizanidine 2 mg tablet [generic] TAKE ONE (1) TABLET BY MOUTH ONCE DAILY For MUSCLE SPASM 1 2023 Active 2023 78579 88357 0 Once daily By Mouth M62.838 False Tamsulosin 0.4 mg capsule [generic] TAKE (1) CAPSULE BY MOUTH AT BEDTIME For SPASMS 1 2023 Active 2023 86265 20336 0 Once daily By Mouth False Aspirin 81 mg tablet Once daily 1 TABLET BY MOUTH IN THE MORNING For DX- CAD DO NOT CRUSH, CHEW OR BREAK 81 mg 06/12 Inactiv e 2023 Once daily By Mouth False Baclofen 20 mg tablet [generic] 20 mg By Mouth 4 times a day For DX- MUSCLE SPASMS 20 mg 12/12 Inactiv e 2023 71771 18035 1 4 times a day By Mouth False Calcium citrate 250 mg tablet Once daily 4 TABLET BY MOUTH For DX- SUPPLEMENT 250 mg calci 12/12 Inactiv e 2023 Once daily By Mouth False Co Q-10 100 mg capsule 100 mg By Mouth Once daily For DX- SUPPLEMENT 100 mg 06/20 Inactiv e 2023 42332 56694 5 Once daily By Mouth False Furosemide 20 mg tablet [generic] 20 mg By Mouth Once daily For DX-CHF 20 mg 12/12 Inactiv e 2023 27462 48914 0 Once daily By Mouth False Gabapentin 300 mg capsule [generic] 300 mg By Mouth 3 times a day For DX- NEUROPATHY 300 mg 12/12 Inactiv e 2023 47591 57667 4 3 times a day By Mouth False Loratadine 10 mg tablet [generic] 10 mg By Mouth Once daily For DX- ALLERGIES 10 mg 2023 Active 2023 55573 67000 1 Once daily By Mouth False Miralax 17 gram/dose oral powder 17 gram/dose By Mouth IN THE MORNING Mix 1 TABLESPOON IN 8 OZ OF FLUID HOLD FOR LOOSE STOOLS For DX- CONSTIPATION 17 gram/do se 12/12 Inactiv e 2023 42639 09818 0 Once daily By Mouth False Paroxetine 30 mg tablet [generic] 30 mg By Mouth Once daily For DX- DEPRESSION 30 mg 2023 00/00 /0000 Active 2023 21967 38874 3 Once daily By Mouth False Potassium citrate ER 15 mEq (1,620 mg) tablet,exte nded release [generic] 15 mEq By Mouth 3 times a day For DX- SUPPLEMENT/DI URETIC USE/ HYPOCITRAUIRA DO NOT CRUSH 15 mEq 12/12 Inactiv e 2023 43262 32936 1 3 times a day By Mouth [...] For DX- DANDRUFF 12/12 Inactiv e 2023 63670 24091 4 3 times a week Topica l False Acetaminoph en 325 mg tablet [generic] TAKE 2 TABS (650MG) BY MOUTH EVERY 4 HOURS NEEDED FOR TEMP >100 NOT TO EXCEED 3GM/24HRS TAKE 2 TABS (650MG) BY MOUTH EVERY 4 HOURS NEEDED FOR TEMP >100 NOT TO EXCEED 3GM/24HRS For DX-FEVER 2 12/12 Inactiv e 2023 98857 45144 0 By Mouth False MILK OF MAGNESIA ADMINISTER 30 ML BY MOUTH ONCE DAILY NEEDED FOR CONSTIPATION X3 DAYS WITH NO BM. For DX- CONSTIPATION 30ML 12/12 Inactiv e 2023 85218 83377 9 By Mouth False Enema Disposable 19 gram-7 gram/118 mL ADMINISTER ONE ENEMA RECTALLY ONCE DAILY NEEDED FOR CONSTIPATION ON DAY 6 OF NO BM For DX- CONSTIPATION 12/12 Inactiv e 2023 67148 41837 1 Rectal False TUMS EXTRA STR 750MG TAKE (1) TABLET BY MOUTH THREE TIMES DAILY NEEDED FOR INDIGESTION For DX- INDIGESTION 1 12/12 Inactiv e 2023 93765 36325 8 By Mouth False Vitamin D3 25 [...] CONSTIPATION 10 mg 12/12 Inactiv e 2023 35849 18349 1 Rectal False Melatonin 3 mg tablet [generic] 3 mg By Mouth As Needed For DX-INSOMMIA 3 mg 12/12 Inactiv e 2023 33695 85574 8 By Mouth False Hydrocortis one 1 % topical cream [generic] 1 % Topical As Needed For DX- PAIN 1 % 12/12 Inactiv e 2023 58504 25183 1 Topica l False HYDROCORTIS ONE/PARMOXI NE [...] 5-10 50 mg 12/20 Inactiv e 2023 05230 14995 0 Every 4 hours as needed By Mouth False Tylenol 325 mg tablet 325 mg By Mouth Every 4 hours as needed For DX- PAIN PRN FOR MILD PAIN, DO NOT EXCEED 3000MG APAP/24 HOURS 325 mg 12/20 Inactiv e 2023 92030 88529 0 Every 4 hours as needed By Mouth False Baclofen 20 mg tablet [generic] 20 mg By Mouth 4 times a day For MUSCLE SPASMS 20 mg 12/20 Inactiv e 2023 74685 30952 1 4 times a day By Mouth False Calcium citrate 250 mg tablet [generic] Once daily TAKE 4 TABLETS (1000MG) BY MOUTH For SUPPLEMENT 1000 MG 06/26 Inactiv e 2023 69020 37660 6 Once daily By Mouth False Dulcolax (bisacodyl) 10 mg rectal suppository 10 mg Rectal Once daily For CONSTIPATION *MAY HOLD FOR LOOSE STOOLS* 10 mg 2023 Active 2023 39108 39635 1 Once daily Rectal False Gabapentin 300 mg capsule [generic] 300 mg By Mouth 3 times a day For NEUROPATHY 300 mg 2023 Active 2023 62882 06876 4 3 times a day By Mouth False Potassium citrate ER 15 mEq (1,620 mg) tablet,exte nded release [generic] 15 mEq By Mouth 3 times a day For SUPPLEMENT/DI URETIC USE/HYPOCITRA URIA 15 mEq 06/11 Inactiv e 2023 79135 35593 1 3 times a day By Mouth False Potassium chloride ER 20 mEq tablet,exte nded release [generic] 20 mEq By Mouth 3 times a day *DO NOT CRUSH, CHEW OR BREAK* For SUPPLEMENT 20 mEq 12/18 Inactiv e 2023 72840 18523 1 3 times a day By Mouth False Tizanidine 4 mg tablet [generic] 4 mg By Mouth Once daily For MUSCLE SPASMS 4 mg 2023 Active 2023 78534 49855 0 Once daily By Mouth False Tylenol 325 mg tablet 2 tabs By Mouth Every 4 hours as needed For Fever >100 DO NOT EXCEED 3000 MG APAP/24 Hours 2 tabs 12/20 Inactiv e 2023 25050 99401 0 Every 4 hours as needed By Mouth False Dulcolax (bisacodyl) 10 mg rectal suppository Daily as needed For Constipation 1 sup 12/20 Inactiv e 2023 42755 54791 1 Daily as needed Rectal False Fleet Enema 19 gram-7 gram/118 mL 1 Rectal Daily as neededFor Constipation 1 12/20 Inactiv e 2023 63530 18902 6 Daily as needed Rectal False Milk of Magnesia 400 mg/5 mL oral suspension [Magnesium hydroxide] PRN 30ml By Mouth Daily as needed for constipation one time daily if no BM, on day 4 of no BM (PRN refer to instructions) For Constipation For Constipatioin 30ml 12/20 Inactiv e 2023 95445 92681 6 1 time By Mouth False Melatonin 3 mg tablet [generic] 3 mg By Mouth Once daily As Needed For INSOMNIA 3 mg 12/20 Inactiv e 2023 18100 32966 8 Once daily By Mouth False Hydrocortis one 1 % topical cream [generic] 1 % Rectal Four times daily as needed For hemorroid pain 1 % 12/20 Inactiv e 2023 03036 39603 1 Four times daily as needed Rectal False X-STGH ANTACID 750MG CHEW TAKE (1) TABLET BY MOUTH THREE TIMES DAILY NEEDED FOR INDIGESTION 12/20 Inactiv e 2023 57633 90619 4 Three times daily as needed Saline Mist 0.65 % nasal spray aerosol 0.65 % Nares Four times daily as needed For DRYNESS 0.65 % 12/20 Inactiv e 2023 69788 19924 8 Four times daily as needed Nares False Vicks Vaporub 4.7 %-1.2 %-2.6 % topical ointment Apply topically to chest Three times daily as needed For CONGESTION 4.7-1.2 -2.6 12/20 Inactiv e 2023 65909 13871 1 Three times daily as needed Topica l False VITAMIN D3 2000U CAP TAKE ONE (1) CAPSULE BY MOUTH DAILY* DO NOT CRUSH, CHEW OR BREAK* For Supplement 1 capsule 12/19 Inactiv e 2023 48819 67263 0 Once daily By Mouth False Potassium chloride ER 20 mEq tablet,exte nded release(par t/cryst) [generic] TAKE (1) TABLET BY MOUTH THREE TIMES DAILY (MORNING, AFTERNOON, EVENING)*DO NOT CRUSH, CHEW, OR BREAK* For SUPPLEMENT 20 MEQ 06/11 Inactiv e 2023 09363 18018 5 3 times a day By Mouth False Aspirin 81 mg tablet,camron yed release [generic] TAKE ONE (1) TABLET BY MOUTH ONCE DAILY*DO NOT CRUSH, CHEW OR BREAK* For CAD 81 MG 12/22 Inactiv e 2023 80544 26021 0 Once daily By Mouth False Furosemide 20 mg tablet [generic] TAKE 1 AND 1/2 TABLETS (30MG) BY MOUTH ONCE DAILY For CHF 30mg 2023 Active 2023 51999 74380 1 Once daily By Mouth False Polyethylen e glycol 3350 17 gram/dose oral powder [generic] MIX 17 GRAMS (1 CAPFUL) IN 60Z OF LIQUID AND DRINK BY MOUTH ONCE DAILY *HOLD FOR LOOSE STOOLS* For constipation 17 g 2023 Active 2023 35814 74580 3 Once daily By Mouth False Vitamin D3 50 mcg (2,000 unit) capsule Once daily TAKE ONE (1) CAPSULE BY MOUTH DAILY* DO NOT CRUSH, CHEW OR BREAK* For Supplement 1 capsule 02/07 Inactiv e 2023 34560 21286 2 Once daily By Mouth False Fleet Enema 19 gram-7 gram/118 mL 1 Rectal Daily as neededFor Constipation 1 2023 0000 Active 2023 47750 43366 6 Daily as needed Rectal False Tums E-X 300 mg (as calcium carbonate 750 mg) chewable tablet 1 tab By Mouth TAKE (1) TABLET BY MOUTH THREE TIMES DAILY NEEDED FOR INDIGESTION 1 tab 202300 /0000 Active 2023 69619 10714 1 Three times daily as needed By Mouth False Tylenol 325 mg tablet 2 tabs By Mouth Every 4 hours as needed For Fever >100 DO NOT EXCEED 3000 MG APAP/24 Hours 2 tabs 202300 /0000 Active 2023 08740 71031 0 Every 4 hours as needed By Mouth False Vicks Vaporub 4.7 %-1.2 %-2.6 % topical ointment Apply topically to chest Three times daily as needed For CONGESTION topical 202300 Active 2023 57573 30090 1 Three times daily as needed Topica l False Tylenol 325 mg tablet 2 tabs By Mouth Every 4 hours as needed For DX- PAIN PRN FOR MILD PAIN, DO NOT EXCEED 3000MG APAP/24 HOURS 2 tabs 202300 Active 2023 58299 40899 0 Every 4 hours as needed By Mouth False Tramadol 50 mg tablet [generic] 1 tab By Mouth Every 4 hours as needed For DX- PAIN 5-10 1 tab 03/10 Inactiv e 2023 52340 54966 0 Every 4 hours as needed By Mouth False Saline Mist 0.65 % nasal spray aerosol 2 sprays Nares Four times daily as needed For DRYNESS 2 sprays 202300 / Active 2023 03387 23191 8 Four times daily as needed Nares False Dulcolax (bisacodyl) 10 mg rectal suppository Daily as needed For Constipation 1 sup 202300 / Active 2023 49441 95907 1 Daily as needed Rectal False Hydrocortis one-pramoxi ne 1 %-1 % rectal cream [generic] 1 mague Rectal Four times daily as needed For hemorroid pain 1 mague 202300 /0000 Active 2023 00519 54008 4 Four times daily as needed Rectal False Melatonin 3 mg tablet [generic] 1 tab By Mouth At bedtime as needed For INSOMNIA 1 tab 12/24 Inactiv e 2023 89311 95768 8 At bedtime as needed By Mouth False Milk of Magnesia 400 mg/5 mL oral suspension 30ml By Mouth Daily as needed Daily as needed for constipation one time daily if no BM, on day 4 of no BM (PRN refer to instructions) For Constipation For Constipatioin 30ml 2023 Active 2023 18448 49204 2 Daily as needed By Mouth False Baclofen 20 mg tablet [generic] 20 mg By Mouth 4 times a day For MUSCLE SPASMS 20 mg 2023 Active 2023 29221 44252 1 4 times a day By Mouth False Melatonin 3 mg tablet [generic] 1 tab By Mouth At bedtime as needed For INSOMNIA 1 tab 2023 Active 2023 67107 85351 8 At bedtime as needed By Mouth False Bactrim DS 800 mg-160 mg tablet 1 tab By Mouth Twice daily For URINARY TRACT INFECTION, SITE NOT SPECIFIED 1 tab 01/06 Inactiv e 2023 03988 31524 1 Twice daily By Mouth N39.0 False Cefdinir 300 mg capsule [generic] 300 mg By Mouth Twice daily For UTI 300 mg 01/07 Inactiv e 2023 92628 88751 0 Twice daily By Mouth False Cefdinir 300 mg capsule [generic] 300 mg By Mouth Twice daily For UTI 300 mg 01/17 Inactiv e 2023 71776 79168 0 Twice daily By Mouth False Zyrtec 10 mg tablet 10 mg By Mouth Once daily For sinus congestion 10 mg 01/22 Inactiv e 2023 39261 13666 0 Once daily By Mouth False Tobramycin 0.3 %-dexametha sone 0.1 % eye drops,suspe nsion [generic] 0.3-0.1 % Left Eye 4 times a day For eye infection 0.3-0.1 % 02/05 Inactiv e 2023 41243 27434 5 4 times a day Left Eye False Fluconazole 150 mg tablet [generic] 150 mg By Mouth 1 time For yeast infection 150 mg 02/15 Inactiv e 2023 67332 90157 2 1 time By Mouth False Tramadol 50 mg tablet [generic] 1 tab By Mouth Every 4 hours as needed For DX- PAIN 5-10 1 tab 2023 00/00 /0000 Active 2023 45741 24443 0 Every 4 hours as needed By Mouth False Tobramycin 0.3 %-dexametha sone 0.1 % eye drops,suspe nsion [generic] 1 drop Left Eye 4 times a day For Inflammation of left eye 1 drop 05/08 Inactiv e 2023 65166 06162 5 4 times a day Left Eye False Voltaren Arthritis Pain 1 % topical gel 2 gm Topical Twice daily to rigth shoulder for 2 weeks For pain 2 gm 05/08 Inactiv e 2023 62327 36996 1 Twice daily Topica l False Chlorthalid one 25 mg tablet [generic] 12.5mg By Mouth Once daily For HTN 12.5mg 05/06 Inactiv e 2023 80889 35823 0 Once daily By Mouth False Chlorthalid one 25 mg tablet [generic] 12.5mg By Mouth Once daily For HTN 12.5mg 05/07 Inactiv e 2023 87054 73021 0 Once daily By Mouth False Chlorthalid one 25 mg tablet [generic] 05/07 Inactiv e 2023 20965 49574 0 Chlorthalid one 25 mg tablet [generic] 12.5mg By Mouth Once daily For HTN 12.5mg 06/26 Inactiv e 2023 63479 05780 0 Once daily By Mouth False Norvasc 5 mg tablet 5mg By Mouth Once daily, hold medication if systolic is less than 90 For HYPERTENSIVE HEART DISEASE WITHOUT HEART FAILURE 5mg 06/03 Inactiv e 2023 31796 17675 1 Once daily By Mouth I11.9 False Norvasc 5 mg tablet 5mg By Mouth Once daily, hold medication if systolic is less than 90 For HYPERTENSIVE HEART DISEASE WITHOUT HEART FAILURE 5mg 06/03 Inactiv e 2023 19718 90012 1 Once daily By Mouth I11.9 False Norvasc 5 mg tablet 5mg By Mouth Once daily, hold medication if systolic is less than 90 For HYPERTENSIVE HEART DISEASE WITHOUT HEART FAILURE 5mg 06/26 Inactiv e 2023 16916 51237 1 Once daily By Mouth I11.9 False [...] 10 mg 2023 00/00 /0000 Active 2023 42918 55947 1 Once daily By Mouth False DISCONTINUE [...] CAD 81 mg 06/14 Inactiv e 2023 84552 87996 9 Once daily By Mouth False Aspirin 81 mg tablet,camron yed release [generic] 06/14 Inactiv e 2023 64854 85033 9 Aspirin 81 mg tablet,camron yed release [generic] 81 mg By Mouth Once daily Do not crush, chew, or break For CAD 81 mg 06/154 Inactiv e 2023 80435 34402 9 Once daily By Mouth False Cefpodoxime 200 mg tablet [generic] 200mg By Mouth Twice daily For UTI 200mg 07/04 Inactiv e 2023 72180 90161 0 Twice daily By Mouth False Calcium citrate 250 mg tablet [generic] 06/26 Inactiv e 2023 21563 19975 6 Calcium citrate 250 mg tablet [generic] Once daily TAKE 4 TABLETS (1000MG) BY MOUTH For SUPPLEMENT 500 MG 2023 Active 2023 29720 00788 6 Once daily By Mouth False Norvasc 5 mg tablet 7.5 mg By Mouth Once daily Hold medication if SBP <90 For HYPERTENSIVE HEART DISEASE WITHOUT HEART FAILURE 7.5 mg 06/30 Inactiv e 2023 36598 76245 1 Once daily By Mouth I11.9 False Norvasc 5 mg tablet 7.5 mg By Mouth Once daily Hold medication if SBP <90 For HYPERTENSIVE HEART DISEASE WITHOUT HEART FAILURE 7.5 mg 07/06 Inactiv e 2023 64614 24765 1 Once daily By Mouth I11.9 False Simethicone 125 mg capsule [generic] 2 capule By Mouth Twice daily as needed For bloating/gas pain 2 capule 2023 Active 2023 92125 65676 0 Twice daily as needed By Mouth False Cepacol Sore Throat (benzocaine -menthol) 15 mg-2.6 mg lozenges 2 lozenges By Mouth Every 6 hours as needed For sore throat 2 lozenge s 2023 Active 2023 20103 96684 6 Every 6 hours as needed By Mouth False Cefepime 1 gram solution for injection [generic] 1g Intramuscular Every 12 hours 1g intramuscular ly ever 12 hours For UTI 1g 07/06 Inactiv e 2023 01559 90510 4 Every 12 hours Intram uscula r False Cefepime 1 gram solution for injection [generic] 07/06 Inactiv e 2023 42996 87309 4 Cefepime 1 gram solution for injection [generic] 1g Intramuscular Every 12 hours 1g intramuscular ly ever 12 hours For UTI Reconstitute with 2.4 ML of NSS. 1g 07/08 Inactiv e 2023 06006 63776 4 Every 12 hours Intram uscula r False Norvasc 5 mg tablet 07/06 Inactiv e 2023 89879 38180 1 I11.9 Norvasc 5 mg tablet 7.5 mg By Mouth Once daily Hold medication if SBP <90 For HYPERTENSIVE HEART DISEASE WITHOUT HEART FAILURE 7.5 mg 07/18 Inactiv e 2023 03262 30306 1 Once daily By Mouth I11.9 False Cefepime 1 gram solution for injection [generic] 07/08 Inactiv e 2023 88185 15984 4 Cefepime 1 gram solution for injection [generic] 1g Intramuscular Every 12 hours 1g intramuscular ly ever 12 hours For UTI Reconstitute with 2.4 ML of NSS. 1g 07/08 Inactiv e 2023 21060 96335 4 Every 12 hours Intram uscula r False Cefepime 1 gram solution for injection [generic] 07/08 Inactiv e 2023 30174 60606 4 Cefepime 1 gram solution for injection [generic] 1g Intramuscular Every 12 hours 1g intramuscular ly ever 12 hours For UTI Reconstitute with 2.4 ML of NSS. 1g 07/11 Inactiv e 2023 02636 78855 4 Every 12 hours Intram uscula r False Fleet Enema 19 gram-7 gram/118 mL 1 Rectal 1 time For constipation 1 07/16 Inactiv e 2024 71448 57087 6 1 time Rectal False Fleet Enema 19 gram-7 gram/118 mL 1 Rectal 1 time For constipation 1 07/17 Inactiv e 2024 59660 99330 6 1 time Rectal False Norvasc 5 mg tablet 7.5 mg By Mouth Once daily For HYPERTENSIVE HEART DISEASE WITHOUT HEART FAILURE 7.5 mg 2024 00/00 /0000 Active 2024 10444 95547 1 Once daily By Mouth I11.9 False Potassium chloride ER 20 mEq tablet,exte nded release(par t/cryst) [generic] 40 mEq By Mouth 1 time For low potassium prior to surgery 40 mEq 07/18 Inactiv e 2024 40331 99201 1 1 time By Mouth False Potassium chloride ER 20 mEq tablet,exte nded release(par t/cryst) [generic] 40 mEq By Mouth 1 time For low potassium prior to surgery 40 mEq 07/18 Inactiv e 2024 40171 64455 1 1 time By Mouth False Potassium chloride ER 20 mEq tablet,exte nded release(par t/cryst) [generic] 40 mEq By Mouth 1 time For low potassium 40 mEq 07/18 Inactiv e 2024 76197 82840 1 1 time By Mouth False Potassium chloride ER 20 mEq tablet,exte nded release(par t/cryst) [generic] 40 mEq By Mouth 1 time For low potassium 40 mEq 07/18 Inactiv e 2024 14571 16687 1 1 time By Mouth False Potassium chloride ER 20 mEq tablet,exte nded release [generic] 2 By Mouth 1 time For low potassium 2 07/19 Inactiv e 2024 42921 15168 1 1 time By Mouth False Potassium chloride ER 20 mEq tablet,exte nded release [generic] 2 capsules capsules By Mouth 1 time Please send capsule (2 capsules) For low potassium 2 capsule s 07/20 Inactiv e 2024 18588 69225 1 1 time By Mouth False Potassium chloride ER 20 mEq tablet,exte nded release(par t/cryst) [generic] TAKE (2) TABLETS (40MEQ) BY MOUTH X1 DOSE 07/20 Inactiv e 2024 72124 86136 5 Cefepime 1 gram solution for injection [generic] 1 gram Intramuscular Every 12 hours For Urinary Tract Infection 1 gram 07/21 Inactiv e 2024 03454 07445 4 Every 12 hours Intram uscula r False Cefepime 1 gram solution for injection [generic] 07/21 Inactiv e 2024 89570 86385 4 Cefepime 1 gram solution for injection [generic] 1 gram Intramuscular Every 12 hours For Urinary Tract Infection 1 gram 07/22 Inactiv e 2024 59452 25885 4 Every 12 hours Intram uscula r False Cefepime 1 gram solution for injection [generic] 1 gram Intramuscular Every 12 hours For Urinary Tract Infection 1 gram 07/24 Inactiv e 2024 97038 33671 4 Every 12 hours Intram uscula r False Klor-Con 10 mEq tablet,exte nded release Klor- Con GIVE 2 Capsules daily Do NOT SEND Tablets Requesting Micro K 10 meq capsules For hyponatremia 2 capsule s 2024 00/00 /0000 Active 2024 89819 20397 1 Once daily By Mouth False Cefepime 1 gram solution for injection [generic] 1 gram Intramuscular Every 12 hours For Urinary Tract Infection 1 gram 07/24 Inactiv e 2024 84226 91437 4 Every 12 hours Intram uscula r False Cefepime 1 gram solution for injection [generic] 1 gram Intramuscular Every 12 hours For Urinary Tract Infection 1 gram 07/24 Inactiv e 2024 82757 23147 4 Every 12 hours Intram uscula r False Cefepime 1 gram solution for injection [generic] 1 gram Intramuscular Every 12 hours For Urinary Tract Infection 1 gram 07/25 Inactiv e 2024 93444 89392 4 Every 12 hours Intram uscula r False Cefepime 1 gram solution for injection [generic] 07/25 Inactiv e 2024 60503 23910 4 Cefepime 1 gram solution for injection [generic] 1 gram Intramuscular Every 12 hours For Urinary Tract Infection 1 gram 07/25 Inactiv e 2024 28110 82598 4 Every 12 hours Intram uscula r False Cefepime 1 gram solution for injection [generic] 07/25 Inactiv e 2024 00315 44205 4 Cefepime 1 gram solution for injection [generic] 1 gram Intramuscular Every 12 hours For Urinary Tract Infection 1 gram 07/28 Active 2024 24651 75809 4 Every 12 hours Intram uscula r False Nystatin 100,000 unit/gram topical cream [generic] 100,000 unit Topical As Needed For DX- EXCORIATION 100,000 unit 12/12 Inactiv e 2023 14344 71276 5 Topica l False Vicks Vaporub 4.7 %-1.2 %-2.6 % topical ointment 4.7-1.2-2.6 Topical 3 times a day As Needed For DX- CONGESTION 4.7-1.2 -2.6 12/12 Inactiv e 2023 72152 26979 1 3 times a day Topica l False Ketoconazol e 2 % shampoo [generic] APPLY SHAMPOO TOPICALLY TO SCALP DURING HAIR WASHINGDX: ELVIA DERM OF SCALP For DX- ELVIA DERM OF SCALP 12/12 Inactiv e 2023 42922 74100 4 Topica l False THERA SILICONE SKIN GUARD Topical Twice daily 1 APPLICATION TOPICALLY IN THE MORNING AND AT BEDTIME TO SCROTUM For DX- PREVENTION 2023 00/00 /0000 Active 2023 Twice daily Topica l False Selenium sulfide 2.5 % lotion [generic] 2.5 % Topical EVERY MONDAY, MONDAY AND MONDAY AFTER SHOWER For DANDRUFF 2.5 % 2023 00/00 /0000 Active 2023 01494 98016 4 3 times a week Topica l False Nystatin (bulk) 100 million unit powder [generic] 100 million Topical Twice daily as needed For EXOCORATION 100 million 12/20 Inactiv e 2023 75653 04922 1 Twice daily as needed Topica l False Ketoconazol e 2 % shampoo [generic] Once daily APPLY SHAMPOO TOPICALLY TO SCALP DURING HAIR WASHING ON SHOWER DAYS- LITTLE SAHA, PAMELLA For ELVIA DERM OF SCAP 2 % 2023 Active 2023 94521 09656 4 Once daily Topica l False Nystatin 100,000 unit/gram topical cream [generic] 1 mague Topical Twice daily as needed For EXOCORATION 1 mague 06/05 Inactiv e 2023 91247 96868 5 Twice daily as needed Topica l False Nystatin 100,000 unit/gram topical powder [generic] 100,000 unit Topical Twice daily to scrotum with AM and PM care For Scrotal excoriation 100,000 unit 06/05 Inactiv e 2023 24637 38468 5 Twice daily Topica l False Problems [...] adjustment of urinary device 07/21/2023 Active Z79.01 detention (current) use of anticoagulants 07/21 Active N31.9 [...] weight Temperature SpO2 Blood Sugar Pulse Respirations 89964 217 83931 3 98.20 Tympanic 54821 217 51652 5 73.00 mm[Hg] - Sitting 159.00 mm[Hg] - Sitting 44916 217 69767 9 98.40 Forehead Scan 92163 218 81381 3 97.90 Tympanic 24722 218 15581 5 77.00 mm[Hg] - Sitting 137.00 mm[Hg] - Sitting 41398 219 16855 0 97.70 Tympanic 65780 219 63837 6 97.60 Tympanic 71818 219 55881 4 76.00 mm[Hg] - Sitting 139.00 mm[Hg] - Sitting 29762 219 36554 4 97.80 Forehead Scan 43015 220 75521 9 97.90 Tympanic 08071 220 80254 9 76.00 mm[Hg] - Sitting 138.00 mm[Hg] - Sitting 92336 220 49435 6 98.10 Tympanic 54201 221 42276 5 67.00 mm[Hg] - Sitting 142.00 mm[Hg] - Sitting 36739 221 67713 8 98.20 Tympanic 56338 221 57911 0 98.30 Tympanic 14274 222 54143 7 98.20 Tympanic 93189 222 66847 8 97.90 Tympanic 16417 223 15846 3 98.20 Tympanic 34071 223 39444 3 98.00 Tympanic 18361 224 02536 0 59.00 mm[Hg] - Sitting 111.00 mm[Hg] - Sitting 98.40 Forehead Scan 95.00 % 56.00/ min 18.00/min 91264 224 53161 9 98.20 Forehead Scan 13485 224 75353 3 97.90 Tympanic 51345 225 99602 4 98.20 Tympanic 84826 225 83450 8 97.50 Forehead Scan 14444 228 49889 0 55.00 mm[Hg] - Sitting 118.00 mm[Hg] - Sitting 98.40 Tympanic 69.00/ min 28596 229 39492 8 78.00 mm[Hg] - Sitting 152.00 mm[Hg] - Sitting 40978 230 70698 0 62.00 mm[Hg] - Sitting 122.00 mm[Hg] - Sitting 71917 231 69624 7 72.00 mm[Hg] - Lying Down 140.00 mm[Hg] - Lying Down [id number] 101 [id number] 3 97.70 Forehead Scan 60877 101 08674 1 254.10 NI 69.00/ min 47513 101 70683 9 72.00 mm[Hg] - Sitting 142.00 mm[Hg] - Sitting 97.70 Tympanic 18.00/min 89118 101 36249 3 72.00 mm[Hg] - Lying Down 142.00 mm[Hg] - Lying Down 65240 102 76444 8 68.00 mm[Hg] - Lying Down 152.00 mm[Hg] - Lying Down 00271 103 40567 5 74.00 mm[Hg] - Sitting 158.00 mm[Hg] - Sitting 23817 104 44099 9 78.00 mm[Hg] - Sitting 144.00 mm[Hg] - Sitting 31674 105 04344 5 68.00 mm[Hg] - Sitting 138.00 mm[Hg] - Sitting 14887 106 14686 1 70.00 mm[Hg] - Sitting 138.00 mm[Hg] - Sitting 99743 107 56655 1 67.00 mm[Hg] - Sitting 142.00 mm[Hg] - Sitting 36937 108 94289 0 74.00 mm[Hg] - Sitting 143.00 mm[Hg] - Sitting 12973 110 70924 6 85.00 mm[Hg] - Sitting 160.00 mm[Hg] - Sitting 97.80 Tympanic 93.00 % 76.00/ min 18.00/min 27971 111 43747 1 83.00 mm[Hg] - Sitting 129.00 mm[Hg] - Sitting 98.60 Tympanic 92.00 % 71.00/ min 18.00/min 13464 111 05429 5 60.00 mm[Hg] - Sitting 114.00 mm[Hg] - Sitting 98.70 Tympanic 92.00 % 76.00/ min 18.00/min 18641 112 49488 4 55.00 mm[Hg] - Sitting 125.00 mm[Hg] - Sitting 98.60 Tympanic 91.00 % 68.00/ min 18.00/min 38432 112 71580 9 75.00 mm[Hg] - Sitting 174.00 mm[Hg] - Sitting 97.70 Tympanic 96.00 % 71.00/ min 18.00/min 14725 113 00831 2 77.00 mm[Hg] - Sitting 139.00 mm[Hg] - Sitting 98.10 Tympanic 97.00 % 81.00/ min 18.00/min 77265 113 23890 4 78.00 mm[Hg] - Sitting 153.00 mm[Hg] - Sitting 98.40 Tympanic 93.00 % 69.00/ min 18.00/min 18246 114 17564 5 76.00 mm[Hg] - Sitting 137.00 mm[Hg] - Sitting 98.10 Tympanic 97.00 % 80.00/ min 18.00/min 24433 114 56852 0 76.00 mm[Hg] - Sitting 145.00 mm[Hg] - Sitting 97.90 Tympanic 98.00 % 73.00/ min 18.00/min 55015 115 93687 3 98.40 Tympanic 29518 115 93100 5 79.00 mm[Hg] - Sitting 143.00 mm[Hg] - Sitting 97.90 Tympanic 97.00 % 85.00/ min 18.00/min 85681 115 11031 5 76.00 mm[Hg] - Sitting 135.00 mm[Hg] [...]
--- OUTSIDE RECORDS SUMMARY | 2024-07-26 11:09 | External Medical Summary | Continuity Of Care Document ---
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 Engineer Name Role Phone DO Pritchett Amy Primary Care Provider [phone] Allergies Allergy Reaction Start Date End Date Status AMINOGLYCOSIDES Active CIPRO Active GENTAMICIN Active NSAIDS (NON-STEROIDAL ANTI-INFLAMMATORY DRUG) 0 Active IBUPROFEN Active QUINOLONES Active VALIUM Active Medications Medication Instructions Dosage Start Date End Date Status Order Date Drug Code Frequency Route of Admin Diagnosis Code Substitutions Allowed Spikevax [id number](1 2y up)(PF) 50 mcg/0.5 mL intramuscul ar suspension [COVID [id number](12 up)(andu)(P F)] 0.5mL Intramuscular 1 time Monitory 15 Minutes post injection for adverse effects; record site/temp For COVID 19 PREVENTION 0.5mL 01/02 Inactiv e 2023 92444 04572 4 1 time Intram uscula r False [facility] - Nurse initials indicate verificatio n that [id number] vaccine was administere d by [facility] jon 1 Intramuscular 1 time ( Indicate vaccine type) For vaccine 1 05/03 Inactiv e 2023 1 time Intram uscula r False Lisinopril 40 mg tablet [generic] TAKE ONE (1) TABLET BY MOUTH IN THE MORNING. For DX- HTN 1 2023 Active 2023 82012 41618 1 Once daily By Mouth False Tizanidine 2 mg tablet [generic] TAKE ONE (1) TABLET BY MOUTH ONCE DAILY For MUSCLE SPASM 1 2023 Active 2023 97414 20262 0 Once daily By Mouth M62.838 False Tamsulosin 0.4 mg capsule [generic] TAKE (1) CAPSULE BY MOUTH AT BEDTIME For SPASMS 1 2023 Active 2023 90285 23675 0 Once daily By Mouth False Aspirin 81 mg tablet Once daily 1 TABLET BY MOUTH IN THE MORNING For DX- CAD DO NOT CRUSH, CHEW OR BREAK 81 mg 06/12 Inactiv e 2023 Once daily By Mouth False Baclofen 20 mg tablet [generic] 20 mg By Mouth 4 times a day For DX- MUSCLE SPASMS 20 mg 12/12 Inactiv e 2023 82000 60425 1 4 times a day By Mouth False Calcium citrate 250 mg tablet Once daily 4 TABLET BY MOUTH For DX- SUPPLEMENT 250 mg calci 12/12 Inactiv e 2023 Once daily By Mouth False Co Q-10 100 mg capsule 100 mg By Mouth Once daily For DX- SUPPLEMENT 100 mg 06/20 Inactiv e 2023 88645 16481 5 Once daily By Mouth False Furosemide 20 mg tablet [generic] 20 mg By Mouth Once daily For DX-CHF 20 mg 12/12 Inactiv e 2023 46107 93449 0 Once daily By Mouth False Gabapentin 300 mg capsule [generic] 300 mg By Mouth 3 times a day For DX- NEUROPATHY 300 mg 12/12 Inactiv e 2023 09316 07942 4 3 times a day By Mouth False Loratadine 10 mg tablet [generic] 10 mg By Mouth Once daily For DX- ALLERGIES 10 mg 2023 Active 2023 30223 60014 1 Once daily By Mouth False Miralax 17 gram/dose oral powder 17 gram/dose By Mouth IN THE MORNING Mix 1 TABLESPOON IN 8 OZ OF FLUID HOLD FOR LOOSE STOOLS For DX- CONSTIPATION 17 gram/do se 12/12 Inactiv e 2023 11255 85562 0 Once daily By Mouth False Paroxetine 30 mg tablet [generic] 30 mg By Mouth Once daily For DX- DEPRESSION 30 mg 2023 00/00 /0000 Active 2023 08088 83443 3 Once daily By Mouth False Potassium citrate ER 15 mEq (1,620 mg) tablet,exte nded release [generic] 15 mEq By Mouth 3 times a day For DX- SUPPLEMENT/DI URETIC USE/ HYPOCITRAUIRA DO NOT CRUSH 15 mEq 12/12 Inactiv e 2023 64381 93903 1 3 times a day By Mouth [...] For DX- DANDRUFF 12/12 Inactiv e 2023 66955 97566 4 3 times a week Topica l False Acetaminoph en 325 mg tablet [generic] TAKE 2 TABS (650MG) BY MOUTH EVERY 4 HOURS NEEDED FOR TEMP >100 NOT TO EXCEED 3GM/24HRS TAKE 2 TABS (650MG) BY MOUTH EVERY 4 HOURS NEEDED FOR TEMP >100 NOT TO EXCEED 3GM/24HRS For DX-FEVER 2 12/12 Inactiv e 2023 21944 97097 0 By Mouth False MILK OF MAGNESIA ADMINISTER 30 ML BY MOUTH ONCE DAILY NEEDED FOR CONSTIPATION X3 DAYS WITH NO BM. For DX- CONSTIPATION 30ML 12/12 Inactiv e 2023 13240 38727 9 By Mouth False Enema Disposable 19 gram-7 gram/118 mL ADMINISTER ONE ENEMA RECTALLY ONCE DAILY NEEDED FOR CONSTIPATION ON DAY 6 OF NO BM For DX- CONSTIPATION 12/12 Inactiv e 2023 92962 72429 1 Rectal False TUMS EXTRA STR 750MG TAKE (1) TABLET BY MOUTH THREE TIMES DAILY NEEDED FOR INDIGESTION For DX- INDIGESTION 1 12/12 Inactiv e 2023 63238 32110 8 By Mouth False Vitamin D3 25 [...] CONSTIPATION 10 mg 12/12 Inactiv e 2023 54321 02885 1 Rectal False Melatonin 3 mg tablet [generic] 3 mg By Mouth As Needed For DX-INSOMMIA 3 mg 12/12 Inactiv e 2023 73912 57831 8 By Mouth False Hydrocortis one 1 % topical cream [generic] 1 % Topical As Needed For DX- PAIN 1 % 12/12 Inactiv e 2023 47478 61663 1 Topica l False HYDROCORTIS ONE/PARMOXI NE [...] 5-10 50 mg 12/20 Inactiv e 2023 91591 89021 0 Every 4 hours as needed By Mouth False Tylenol 325 mg tablet 325 mg By Mouth Every 4 hours as needed For DX- PAIN PRN FOR MILD PAIN, DO NOT EXCEED 3000MG APAP/24 HOURS 325 mg 12/20 Inactiv e 2023 71185 70445 0 Every 4 hours as needed By Mouth False Baclofen 20 mg tablet [generic] 20 mg By Mouth 4 times a day For MUSCLE SPASMS 20 mg 12/20 Inactiv e 2023 37253 86197 1 4 times a day By Mouth False Calcium citrate 250 mg tablet [generic] Once daily TAKE 4 TABLETS (1000MG) BY MOUTH For SUPPLEMENT 1000 MG 06/26 Inactiv e 2023 66908 61061 6 Once daily By Mouth False Dulcolax (bisacodyl) 10 mg rectal suppository 10 mg Rectal Once daily For CONSTIPATION *MAY HOLD FOR LOOSE STOOLS* 10 mg 2023 Active 2023 12181 63861 1 Once daily Rectal False Gabapentin 300 mg capsule [generic] 300 mg By Mouth 3 times a day For NEUROPATHY 300 mg 2023 Active 2023 76449 98731 4 3 times a day By Mouth False Potassium citrate ER 15 mEq (1,620 mg) tablet,exte nded release [generic] 15 mEq By Mouth 3 times a day For SUPPLEMENT/DI URETIC USE/HYPOCITRA URIA 15 mEq 06/11 Inactiv e 2023 00015 53841 1 3 times a day By Mouth False Potassium chloride ER 20 mEq tablet,exte nded release [generic] 20 mEq By Mouth 3 times a day *DO NOT CRUSH, CHEW OR BREAK* For SUPPLEMENT 20 mEq 12/18 Inactiv e 2023 21565 27420 1 3 times a day By Mouth False Tizanidine 4 mg tablet [generic] 4 mg By Mouth Once daily For MUSCLE SPASMS 4 mg 2023 Active 2023 86233 47607 0 Once daily By Mouth False Tylenol 325 mg tablet 2 tabs By Mouth Every 4 hours as needed For Fever >100 DO NOT EXCEED 3000 MG APAP/24 Hours 2 tabs 12/20 Inactiv e 2023 45050 19709 0 Every 4 hours as needed By Mouth False Dulcolax (bisacodyl) 10 mg rectal suppository Daily as needed For Constipation 1 sup 12/20 Inactiv e 2023 89721 85412 1 Daily as needed Rectal False Fleet Enema 19 gram-7 gram/118 mL 1 Rectal Daily as neededFor Constipation 1 12/20 Inactiv e 2023 59088 03940 6 Daily as needed Rectal False Milk of Magnesia 400 mg/5 mL oral suspension [Magnesium hydroxide] PRN 30ml By Mouth Daily as needed for constipation one time daily if no BM, on day 4 of no BM (PRN refer to instructions) For Constipation For Constipatioin 30ml 12/20 Inactiv e 2023 61698 85836 6 1 time By Mouth False Melatonin 3 mg tablet [generic] 3 mg By Mouth Once daily As Needed For INSOMNIA 3 mg 12/20 Inactiv e 2023 93739 05264 8 Once daily By Mouth False Hydrocortis one 1 % topical cream [generic] 1 % Rectal Four times daily as needed For hemorroid pain 1 % 12/20 Inactiv e 2023 65704 79891 1 Four times daily as needed Rectal False X-STGH ANTACID 750MG CHEW TAKE (1) TABLET BY MOUTH THREE TIMES DAILY NEEDED FOR INDIGESTION 12/20 Inactiv e 2023 00516 10075 4 Three times daily as needed Saline Mist 0.65 % nasal spray aerosol 0.65 % Nares Four times daily as needed For DRYNESS 0.65 % 12/20 Inactiv e 2023 13918 27781 8 Four times daily as needed Nares False Vicks Vaporub 4.7 %-1.2 %-2.6 % topical ointment Apply topically to chest Three times daily as needed For CONGESTION 4.7-1.2 -2.6 12/20 Inactiv e 2023 65538 38455 1 Three times daily as needed Topica l False VITAMIN D3 2000U CAP TAKE ONE (1) CAPSULE BY MOUTH DAILY* DO NOT CRUSH, CHEW OR BREAK* For Supplement 1 capsule 12/19 Inactiv e 2023 54409 57730 0 Once daily By Mouth False Potassium chloride ER 20 mEq tablet,exte nded release(par t/cryst) [generic] TAKE (1) TABLET BY MOUTH THREE TIMES DAILY (MORNING, AFTERNOON, EVENING)*DO NOT CRUSH, CHEW, OR BREAK* For SUPPLEMENT 20 MEQ 06/11 Inactiv e 2023 38982 43057 5 3 times a day By Mouth False Aspirin 81 mg tablet,camron yed release [generic] TAKE ONE (1) TABLET BY MOUTH ONCE DAILY*DO NOT CRUSH, CHEW OR BREAK* For CAD 81 MG 12/22 Inactiv e 2023 60471 11488 0 Once daily By Mouth False Furosemide 20 mg tablet [generic] TAKE 1 AND 1/2 TABLETS (30MG) BY MOUTH ONCE DAILY For CHF 30mg 2023 Active 2023 56349 25575 1 Once daily By Mouth False Polyethylen e glycol 3350 17 gram/dose oral powder [generic] MIX 17 GRAMS (1 CAPFUL) IN 60Z OF LIQUID AND DRINK BY MOUTH ONCE DAILY *HOLD FOR LOOSE STOOLS* For constipation 17 g 2023 Active 2023 30407 74441 3 Once daily By Mouth False Vitamin D3 50 mcg (2,000 unit) capsule Once daily TAKE ONE (1) CAPSULE BY MOUTH DAILY* DO NOT CRUSH, CHEW OR BREAK* For Supplement 1 capsule 02/07 Inactiv e 2023 60522 28886 2 Once daily By Mouth False Fleet Enema 19 gram-7 gram/118 mL 1 Rectal Daily as neededFor Constipation 1 2023 0000 Active 2023 87692 30805 6 Daily as needed Rectal False Tums E-X 300 mg (as calcium carbonate 750 mg) chewable tablet 1 tab By Mouth TAKE (1) TABLET BY MOUTH THREE TIMES DAILY NEEDED FOR INDIGESTION 1 tab 202300 /0000 Active 2023 50081 42923 1 Three times daily as needed By Mouth False Tylenol 325 mg tablet 2 tabs By Mouth Every 4 hours as needed For Fever >100 DO NOT EXCEED 3000 MG APAP/24 Hours 2 tabs 202300 /0000 Active 2023 88252 34108 0 Every 4 hours as needed By Mouth False Vicks Vaporub 4.7 %-1.2 %-2.6 % topical ointment Apply topically to chest Three times daily as needed For CONGESTION topical 202300 Active 2023 25665 08147 1 Three times daily as needed Topica l False Tylenol 325 mg tablet 2 tabs By Mouth Every 4 hours as needed For DX- PAIN PRN FOR MILD PAIN, DO NOT EXCEED 3000MG APAP/24 HOURS 2 tabs 202300 Active 2023 33651 68153 0 Every 4 hours as needed By Mouth False Tramadol 50 mg tablet [generic] 1 tab By Mouth Every 4 hours as needed For DX- PAIN 5-10 1 tab 03/10 Inactiv e 2023 07183 82554 0 Every 4 hours as needed By Mouth False Saline Mist 0.65 % nasal spray aerosol 2 sprays Nares Four times daily as needed For DRYNESS 2 sprays 202300 / Active 2023 53623 84157 8 Four times daily as needed Nares False Dulcolax (bisacodyl) 10 mg rectal suppository Daily as needed For Constipation 1 sup 202300 / Active 2023 57009 28126 1 Daily as needed Rectal False Hydrocortis one-pramoxi ne 1 %-1 % rectal cream [generic] 1 mague Rectal Four times daily as needed For hemorroid pain 1 mague 202300 /0000 Active 2023 22275 68439 4 Four times daily as needed Rectal False Melatonin 3 mg tablet [generic] 1 tab By Mouth At bedtime as needed For INSOMNIA 1 tab 12/24 Inactiv e 2023 79539 05997 8 At bedtime as needed By Mouth False Milk of Magnesia 400 mg/5 mL oral suspension 30ml By Mouth Daily as needed Daily as needed for constipation one time daily if no BM, on day 4 of no BM (PRN refer to instructions) For Constipation For Constipatioin 30ml 2023 Active 2023 75348 06983 2 Daily as needed By Mouth False Baclofen 20 mg tablet [generic] 20 mg By Mouth 4 times a day For MUSCLE SPASMS 20 mg 2023 Active 2023 65503 60939 1 4 times a day By Mouth False Melatonin 3 mg tablet [generic] 1 tab By Mouth At bedtime as needed For INSOMNIA 1 tab 2023 Active 2023 92647 54826 8 At bedtime as needed By Mouth False Bactrim DS 800 mg-160 mg tablet 1 tab By Mouth Twice daily For URINARY TRACT INFECTION, SITE NOT SPECIFIED 1 tab 01/06 Inactiv e 2023 44569 44721 1 Twice daily By Mouth N39.0 False Cefdinir 300 mg capsule [generic] 300 mg By Mouth Twice daily For UTI 300 mg 01/07 Inactiv e 2023 12827 01811 0 Twice daily By Mouth False Cefdinir 300 mg capsule [generic] 300 mg By Mouth Twice daily For UTI 300 mg 01/17 Inactiv e 2023 32610 88520 0 Twice daily By Mouth False Zyrtec 10 mg tablet 10 mg By Mouth Once daily For sinus congestion 10 mg 01/22 Inactiv e 2023 25075 31100 0 Once daily By Mouth False Tobramycin 0.3 %-dexametha sone 0.1 % eye drops,suspe nsion [generic] 0.3-0.1 % Left Eye 4 times a day For eye infection 0.3-0.1 % 02/05 Inactiv e 2023 25094 48114 5 4 times a day Left Eye False Fluconazole 150 mg tablet [generic] 150 mg By Mouth 1 time For yeast infection 150 mg 02/15 Inactiv e 2023 07079 10134 2 1 time By Mouth False Tramadol 50 mg tablet [generic] 1 tab By Mouth Every 4 hours as needed For DX- PAIN 5-10 1 tab 2023 00/00 /0000 Active 2023 69517 72796 0 Every 4 hours as needed By Mouth False Tobramycin 0.3 %-dexametha sone 0.1 % eye drops,suspe nsion [generic] 1 drop Left Eye 4 times a day For Inflammation of left eye 1 drop 05/08 Inactiv e 2023 93601 64646 5 4 times a day Left Eye False Voltaren Arthritis Pain 1 % topical gel 2 gm Topical Twice daily to rigth shoulder for 2 weeks For pain 2 gm 05/08 Inactiv e 2023 33672 50675 1 Twice daily Topica l False Chlorthalid one 25 mg tablet [generic] 12.5mg By Mouth Once daily For HTN 12.5mg 05/06 Inactiv e 2023 69416 93837 0 Once daily By Mouth False Chlorthalid one 25 mg tablet [generic] 12.5mg By Mouth Once daily For HTN 12.5mg 05/07 Inactiv e 2023 83684 47032 0 Once daily By Mouth False Chlorthalid one 25 mg tablet [generic] 05/07 Inactiv e 2023 30450 03074 0 Chlorthalid one 25 mg tablet [generic] 12.5mg By Mouth Once daily For HTN 12.5mg 06/26 Inactiv e 2023 35394 22803 0 Once daily By Mouth False Norvasc 5 mg tablet 5mg By Mouth Once daily, hold medication if systolic is less than 90 For HYPERTENSIVE HEART DISEASE WITHOUT HEART FAILURE 5mg 06/03 Inactiv e 2023 33199 76149 1 Once daily By Mouth I11.9 False Norvasc 5 mg tablet 5mg By Mouth Once daily, hold medication if systolic is less than 90 For HYPERTENSIVE HEART DISEASE WITHOUT HEART FAILURE 5mg 06/03 Inactiv e 2023 15513 82234 1 Once daily By Mouth I11.9 False Norvasc 5 mg tablet 5mg By Mouth Once daily, hold medication if systolic is less than 90 For HYPERTENSIVE HEART DISEASE WITHOUT HEART FAILURE 5mg 06/26 Inactiv e 2023 62393 44554 1 Once daily By Mouth I11.9 False [...] 10 mg 2023 00/00 /0000 Active 2023 79487 08757 1 Once daily By Mouth False DISCONTINUE [...] CAD 81 mg 06/14 Inactiv e 2023 67592 71710 9 Once daily By Mouth False Aspirin 81 mg tablet,camron yed release [generic] 06/14 Inactiv e 2023 89977 75560 9 Aspirin 81 mg tablet,camron yed release [generic] 81 mg By Mouth Once daily Do not crush, chew, or break For CAD 81 mg 06/154 Inactiv e 2023 77252 02530 9 Once daily By Mouth False Cefpodoxime 200 mg tablet [generic] 200mg By Mouth Twice daily For UTI 200mg 07/04 Inactiv e 2023 06144 42116 0 Twice daily By Mouth False Calcium citrate 250 mg tablet [generic] 06/26 Inactiv e 2023 36556 43794 6 Calcium citrate 250 mg tablet [generic] Once daily TAKE 4 TABLETS (1000MG) BY MOUTH For SUPPLEMENT 500 MG 2023 Active 2023 26576 09169 6 Once daily By Mouth False Norvasc 5 mg tablet 7.5 mg By Mouth Once daily Hold medication if SBP <90 For HYPERTENSIVE HEART DISEASE WITHOUT HEART FAILURE 7.5 mg 06/30 Inactiv e 2023 90756 14359 1 Once daily By Mouth I11.9 False Norvasc 5 mg tablet 7.5 mg By Mouth Once daily Hold medication if SBP <90 For HYPERTENSIVE HEART DISEASE WITHOUT HEART FAILURE 7.5 mg 07/06 Inactiv e 2023 25085 90120 1 Once daily By Mouth I11.9 False Simethicone 125 mg capsule [generic] 2 capule By Mouth Twice daily as needed For bloating/gas pain 2 capule 2023 Active 2023 54325 13819 0 Twice daily as needed By Mouth False Cepacol Sore Throat (benzocaine -menthol) 15 mg-2.6 mg lozenges 2 lozenges By Mouth Every 6 hours as needed For sore throat 2 lozenge s 2023 Active 2023 36025 92823 6 Every 6 hours as needed By Mouth False Cefepime 1 gram solution for injection [generic] 1g Intramuscular Every 12 hours 1g intramuscular ly ever 12 hours For UTI 1g 07/06 Inactiv e 2023 38633 66696 4 Every 12 hours Intram uscula r False Cefepime 1 gram solution for injection [generic] 07/06 Inactiv e 2023 96689 25261 4 Cefepime 1 gram solution for injection [generic] 1g Intramuscular Every 12 hours 1g intramuscular ly ever 12 hours For UTI Reconstitute with 2.4 ML of NSS. 1g 07/08 Inactiv e 2023 70434 03881 4 Every 12 hours Intram uscula r False Norvasc 5 mg tablet 07/06 Inactiv e 2023 08683 43010 1 I11.9 Norvasc 5 mg tablet 7.5 mg By Mouth Once daily Hold medication if SBP <90 For HYPERTENSIVE HEART DISEASE WITHOUT HEART FAILURE 7.5 mg 07/18 Inactiv e 2023 64101 06398 1 Once daily By Mouth I11.9 False Cefepime 1 gram solution for injection [generic] 07/08 Inactiv e 2023 63375 34459 4 Cefepime 1 gram solution for injection [generic] 1g Intramuscular Every 12 hours 1g intramuscular ly ever 12 hours For UTI Reconstitute with 2.4 ML of NSS. 1g 07/08 Inactiv e 2023 68815 31082 4 Every 12 hours Intram uscula r False Cefepime 1 gram solution for injection [generic] 07/08 Inactiv e 2023 32883 99234 4 Cefepime 1 gram solution for injection [generic] 1g Intramuscular Every 12 hours 1g intramuscular ly ever 12 hours For UTI Reconstitute with 2.4 ML of NSS. 1g 07/11 Inactiv e 2023 58394 04957 4 Every 12 hours Intram uscula r False Fleet Enema 19 gram-7 gram/118 mL 1 Rectal 1 time For constipation 1 07/16 Inactiv e 2024 64062 82167 6 1 time Rectal False Fleet Enema 19 gram-7 gram/118 mL 1 Rectal 1 time For constipation 1 07/17 Inactiv e 2024 82084 01782 6 1 time Rectal False Norvasc 5 mg tablet 7.5 mg By Mouth Once daily For HYPERTENSIVE HEART DISEASE WITHOUT HEART FAILURE 7.5 mg 2024 00/00 /0000 Active 2024 68248 30736 1 Once daily By Mouth I11.9 False Potassium chloride ER 20 mEq tablet,exte nded release(par t/cryst) [generic] 40 mEq By Mouth 1 time For low potassium prior to surgery 40 mEq 07/18 Inactiv e 2024 93018 79594 1 1 time By Mouth False Potassium chloride ER 20 mEq tablet,exte nded release(par t/cryst) [generic] 40 mEq By Mouth 1 time For low potassium prior to surgery 40 mEq 07/18 Inactiv e 2024 18072 58496 1 1 time By Mouth False Potassium chloride ER 20 mEq tablet,exte nded release(par t/cryst) [generic] 40 mEq By Mouth 1 time For low potassium 40 mEq 07/18 Inactiv e 2024 90495 30864 1 1 time By Mouth False Potassium chloride ER 20 mEq tablet,exte nded release(par t/cryst) [generic] 40 mEq By Mouth 1 time For low potassium 40 mEq 07/18 Inactiv e 2024 94725 30982 1 1 time By Mouth False Potassium chloride ER 20 mEq tablet,exte nded release [generic] 2 By Mouth 1 time For low potassium 2 07/19 Inactiv e 2024 24087 47191 1 1 time By Mouth False Potassium chloride ER 20 mEq tablet,exte nded release [generic] 2 capsules capsules By Mouth 1 time Please send capsule (2 capsules) For low potassium 2 capsule s 07/20 Inactiv e 2024 88995 36037 1 1 time By Mouth False Potassium chloride ER 20 mEq tablet,exte nded release(par t/cryst) [generic] TAKE (2) TABLETS (40MEQ) BY MOUTH X1 DOSE 07/20 Inactiv e 2024 42530 98332 5 Cefepime 1 gram solution for injection [generic] 1 gram Intramuscular Every 12 hours For Urinary Tract Infection 1 gram 07/21 Inactiv e 2024 88631 53064 4 Every 12 hours Intram uscula r False Cefepime 1 gram solution for injection [generic] 07/21 Inactiv e 2024 44410 04622 4 Cefepime 1 gram solution for injection [generic] 1 gram Intramuscular Every 12 hours For Urinary Tract Infection 1 gram 07/22 Inactiv e 2024 82160 37567 4 Every 12 hours Intram uscula r False Cefepime 1 gram solution for injection [generic] 1 gram Intramuscular Every 12 hours For Urinary Tract Infection 1 gram 07/24 Inactiv e 2024 33466 32826 4 Every 12 hours Intram uscula r False Klor-Con 10 mEq tablet,exte nded release Klor- Con GIVE 2 Capsules daily Do NOT SEND Tablets Requesting Micro K 10 meq capsules For hyponatremia 2 capsule s 2024 00/00 /0000 Active 2024 33177 00209 1 Once daily By Mouth False Cefepime 1 gram solution for injection [generic] 1 gram Intramuscular Every 12 hours For Urinary Tract Infection 1 gram 07/24 Inactiv e 2024 84751 60503 4 Every 12 hours Intram uscula r False Cefepime 1 gram solution for injection [generic] 1 gram Intramuscular Every 12 hours For Urinary Tract Infection 1 gram 07/24 Inactiv e 2024 14577 51279 4 Every 12 hours Intram uscula r False Cefepime 1 gram solution for injection [generic] 1 gram Intramuscular Every 12 hours For Urinary Tract Infection 1 gram 07/25 Inactiv e 2024 69984 66132 4 Every 12 hours Intram uscula r False Cefepime 1 gram solution for injection [generic] 07/25 Inactiv e 2024 64221 55882 4 Cefepime 1 gram solution for injection [generic] 1 gram Intramuscular Every 12 hours For Urinary Tract Infection 1 gram 07/25 Inactiv e 2024 71558 45120 4 Every 12 hours Intram uscula r False Cefepime 1 gram solution for injection [generic] 07/25 Inactiv e 2024 48600 50871 4 Cefepime 1 gram solution for injection [generic] 1 gram Intramuscular Every 12 hours For Urinary Tract Infection 1 gram 07/26 Inactiv e 2024 08070 12258 4 Every 12 hours Intram uscula r False Cefepime 1 gram solution for injection [generic] 07/26 Inactiv e 2024 05904 61427 4 Cefepime 1 gram solution for injection [generic] 1 gram Intramuscular Every 12 hours For Urinary Tract Infection 1 gram 07/28 Active 2024 94605 00493 4 Every 12 hours Intram uscula r False Nystatin 100,000 unit/gram topical cream [generic] 100,000 unit Topical As Needed For DX- EXCORIATION 100,000 unit 12/12 Inactiv e 2023 91172 17779 5 Topica l False Vicks Vaporub 4.7 %-1.2 %-2.6 % topical ointment 4.7-1.2-2.6 Topical 3 times a day As Needed For DX- CONGESTION 4.7-1.2 -2.6 12/12 Inactiv e 2023 59791 69811 1 3 times a day Topica l False Ketoconazol e 2 % shampoo [generic] APPLY SHAMPOO TOPICALLY TO SCALP DURING HAIR WASHINGDX: ELVIA DERM OF SCALP For DX- ELVIA DERM OF SCALP 12/12 Inactiv e 2023 33681 64279 4 Topica l False THERA SILICONE SKIN GUARD Topical Twice daily 1 APPLICATION TOPICALLY IN THE MORNING AND AT BEDTIME TO SCROTUM For DX- PREVENTION 2023 00/00 /0000 Active 05/24/ 2024 Twice daily Topica l False Selenium sulfide 2.5 % lotion [generic] 2.5 % Topical EVERY MONDAY, MONDAY AND MONDAY AFTER SHOWER For DANDRUFF 2.5 % 2023 Active 2023 93874 88724 4 3 times a week Topica l False Nystatin (bulk) 100 million unit powder [generic] 100 million Topical Twice daily as needed For EXOCORATION 100 million 12/20 Inactiv e 2023 27676 93667 1 Twice daily as needed Topica l False Ketoconazol e 2 % shampoo [generic] Once daily APPLY SHAMPOO TOPICALLY TO SCALP DURING HAIR WASHING ON SHOWER DAYS- , , MON For ELVIA DERM OF SCAP 2 % 2023 Active 2023 92416 17630 4 Once daily Topica l False Nystatin 100,000 unit/gram topical cream [generic] 1 mague Topical Twice daily as needed For EXOCORATION 1 mague 06/05 Inactiv e 2023 47204 70560 5 Twice daily as needed Topica l False Nystatin 100,000 unit/gram topical powder [generic] 100,000 unit Topical Twice daily to scrotum with AM and PM care For Scrotal excoriation 100,000 unit 06/05 Inactiv e 2023 22046 27220 5 Twice daily Topica l False Problems [...] failure 07/21/2023 Active E78.5 Hyperlipidemia, unspecified 07/21/2023 Active K21.9 Gastro-esophageal re flux disease without esophagitis 07/21/2023 Active Z86.718 Personal history of other venous thrombosis and embolism 07/21/2023 Active Z46.6 Encounter for fittin g and adjustment of urinary device 07/21/2023 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 Active N31.9 [...] weight Temperature SpO2 Blood Sugar Pulse Respirations 218 76853 3 97.90 Tympanic 25598 218 03113 5 77.00 mm[Hg] - Sitting 137.00 mm[Hg] - Sitting 93083 219 52903 0 97.70 Tympanic 01329 219 71591 6 97.60 Tympanic 33092 219 18474 4 76.00 mm[Hg] - Sitting 139.00 mm[Hg] - Sitting 54687 219 83142 4 97.80 Forehead Scan 54167 220 99542 9 97.90 Tympanic 40527 220 85041 9 76.00 mm[Hg] - Sitting 138.00 mm[Hg] - Sitting 39153 220 27098 6 98.10 Tympanic 24120 221 53653 5 67.00 mm[Hg] - Sitting 142.00 mm[Hg] - Sitting 97024 221 60255 8 98.20 Tympanic 48640 221 82815 0 98.30 Tympanic 80901 222 05144 7 98.20 Tympanic 59844 222 52369 8 97.90 Tympanic 07263 223 57008 3 98.20 Tympanic 79610 223 28258 3 98.00 Tympanic 35125 224 10095 0 59.00 mm[Hg] - Sitting 111.00 mm[Hg] - Sitting 98.40 Forehead Scan 95.00 % 56.00/ min 18.00/min 29481 224 75525 9 98.20 Forehead Scan 63937 224 75698 3 97.90 Tympanic 53756 225 43292 4 98.20 Tympanic 67517 225 13036 8 97.50 Forehead Scan 52137 228 08664 0 55.00 mm[Hg] - Sitting 118.00 mm[Hg] - Sitting 98.40 Tympanic 69.00/ min 23219 229 38882 8 78.00 mm[Hg] - Sitting 152.00 mm[Hg] - Sitting 54227 230 71846 0 62.00 mm[Hg] - Sitting 122.00 mm[Hg] - Sitting 54082 231 09625 7 72.00 mm[Hg] - Lying Down 140.00 mm[Hg] - Lying Down 72376 101 36918 3 97.70 Forehead Scan 30542 101 85114 1 254.10 NI 69.00/ min 94269 101 86201 9 72.00 mm[Hg] - Sitting 142.00 mm[Hg] - Sitting 97.70 Tympanic 18.00/min 71640 101 08488 3 72.00 mm[Hg] - Lying Down 142.00 mm[Hg] - Lying Down 43401 102 74013 8 68.00 mm[Hg] - Lying Down 152.00 mm[Hg] - Lying Down 55996 103 93933 5 74.00 mm[Hg] - Sitting 158.00 mm[Hg] - Sitting 96141 104 68040 9 78.00 mm[Hg] - Sitting 144.00 mm[Hg] - Sitting 68566 105 74168 5 68.00 mm[Hg] - Sitting 138.00 mm[Hg] - Sitting 00942 106 99832 1 70.00 mm[Hg] - Sitting 138.00 mm[Hg] - Sitting 25907 107 61451 1 67.00 mm[Hg] - Sitting 142.00 mm[Hg] - Sitting 79198 108 67046 0 74.00 mm[Hg] - Sitting 143.00 mm[Hg] - Sitting 50227 110 04990 6 85.00 mm[Hg] - Sitting 160.00 mm[Hg] - Sitting 97.80 Tympanic 93.00 % 76.00/ min 18.00/min 86416 111 82087 1 83.00 mm[Hg] - Sitting 129.00 mm[Hg] - Sitting 98.60 Tympanic 92.00 % 71.00/ min 18.00/min 43616 111 51779 5 60.00 mm[Hg] - Sitting 114.00 mm[Hg] - Sitting 98.70 Tympanic 92.00 % 76.00/ min 18.00/min 52135 112 61696 4 55.00 mm[Hg] - Sitting 125.00 mm[Hg] - Sitting 98.60 Tympanic 91.00 % 68.00/ min 18.00/min 20919 112 57042 9 75.00 mm[Hg] - Sitting 174.00 mm[Hg] - Sitting 97.70 Tympanic 96.00 % 71.00/ min 18.00/min 11888 113 65885 2 77.00 mm[Hg] - Sitting 139.00 mm[Hg] - Sitting 98.10 Tympanic 97.00 % 81.00/ min 18.00/min 23277 113 52903 4 78.00 mm[Hg] - Sitting 153.00 mm[Hg] - Sitting 98.40 Tympanic 93.00 % 69.00/ min 18.00/min 05484 114 61962 5 76.00 mm[Hg] - Sitting 137.00 mm[Hg] - Sitting 98.10 Tympanic 97.00 % 80.00/ min 18.00/min 97904 114 50018 0 76.00 mm[Hg] - Sitting 145.00 mm[Hg] - Sitting 97.90 Tympanic 98.00 % 73.00/ min 18.00/min 12886 115 41495 3 98.40 Tympanic 52817 115 68267 5 79.00 mm[Hg] - Sitting 143.00 mm[Hg] - Sitting 97.90 Tympanic 97.00 % 85.00/ min 18.00/min 75273 115 77841 5 76.00 mm[Hg] - Sitting 135.00 mm[Hg] - Sitting 97.80 Tympanic 97.00 % 81.00/ min 18.00/min 41135 116 96483 5 97.80 Tympanic 77331 116 22841 1 98.20 Tympanic 27960 116 51954 0 82.00 mm[Hg] - Sitting 137.00 mm[Hg] - Sitting 98.20 Tympanic 97.00 % 78.00/ min 16.00/min 53970 116 10714 5 71.00 mm[Hg] - Sitting 122.00 mm[Hg] [...]
--- OUTSIDE RECORDS SUMMARY | 2024-07-26 11:10 | External Medical Summary | Continuity Of Care Document ---
Author Name Unknown Address [address] [place] [address] Organization [facility] () Care Team Providers Care Foreign Language Instructor Name Role Phone DO Pritchett Amy Primary Care Provider [phone] Allergies Allergy Reaction Start Date End Date Status AMINOGLYCOSIDES Active CIPRO Active GENTAMICIN Active NSAIDS (NON-STEROIDAL ANTI-INFLAMMATORY DRUG) 0 Active IBUPROFEN Active QUINOLONES Active VALIUM Active Medications Medication Instructions Dosage Start Date End Date Status Order Date Drug Code Frequency Route of Admin Diagnosis Code Substitutions Allowed Spikevax [id number](1 2y up)(PF) 50 mcg/0.5 mL intramuscul ar suspension [COVID [id number](12 up)(andu)(P F)] 0.5mL Intramuscular 1 time Monitory 15 Minutes post injection for adverse effects; record site/temp For COVID 19 PREVENTION 0.5mL 01/02 Inactiv e 2023 01986 47052 4 1 time Intram uscula r False [facility] - Nurse initials indicate verificatio n that [id number] vaccine was administere d by [facility] jon 1 Intramuscular 1 time ( Indicate vaccine type) For vaccine 1 05/03 Inactiv e 2023 1 time Intram uscula r False Lisinopril 40 mg tablet [generic] TAKE ONE (1) TABLET BY MOUTH IN THE MORNING. For DX- HTN 1 2023 Active 2023 04110 11898 1 Once daily By Mouth False Tizanidine 2 mg tablet [generic] TAKE ONE (1) TABLET BY MOUTH ONCE DAILY For MUSCLE SPASM 1 2023 Active 2023 78469 60981 0 Once daily By Mouth M62.838 False Tamsulosin 0.4 mg capsule [generic] TAKE (1) CAPSULE BY MOUTH AT BEDTIME For SPASMS 1 2023 Active 2023 50458 70046 0 Once daily By Mouth False Aspirin 81 mg tablet Once daily 1 TABLET BY MOUTH IN THE MORNING For DX- CAD DO NOT CRUSH, CHEW OR BREAK 81 mg 06/12 Inactiv e 2023 Once daily By Mouth False Baclofen 20 mg tablet [generic] 20 mg By Mouth 4 times a day For DX- MUSCLE SPASMS 20 mg 12/12 Inactiv e 2023 26380 95630 1 4 times a day By Mouth False Calcium citrate 250 mg tablet Once daily 4 TABLET BY MOUTH For DX- SUPPLEMENT 250 mg calci 12/12 Inactiv e 2023 Once daily By Mouth False Co Q-10 100 mg capsule 100 mg By Mouth Once daily For DX- SUPPLEMENT 100 mg 06/20 Inactiv e 2023 17818 48841 5 Once daily By Mouth False Furosemide 20 mg tablet [generic] 20 mg By Mouth Once daily For DX-CHF 20 mg 12/12 Inactiv e 2023 98757 03501 0 Once daily By Mouth False Gabapentin 300 mg capsule [generic] 300 mg By Mouth 3 times a day For DX- NEUROPATHY 300 mg 12/12 Inactiv e 2023 73781 30161 4 3 times a day By Mouth False Loratadine 10 mg tablet [generic] 10 mg By Mouth Once daily For DX- ALLERGIES 10 mg 2023 Active 2023 32858 03813 1 Once daily By Mouth False Miralax 17 gram/dose oral powder 17 gram/dose By Mouth IN THE MORNING Mix 1 TABLESPOON IN 8 OZ OF FLUID HOLD FOR LOOSE STOOLS For DX- CONSTIPATION 17 gram/do se 12/12 Inactiv e 2023 48907 89863 0 Once daily By Mouth False Paroxetine 30 mg tablet [generic] 30 mg By Mouth Once daily For DX- DEPRESSION 30 mg 2023 00/00 /0000 Active 2023 48145 15350 3 Once daily By Mouth False Potassium citrate ER 15 mEq (1,620 mg) tablet,exte nded release [generic] 15 mEq By Mouth 3 times a day For DX- SUPPLEMENT/DI URETIC USE/ HYPOCITRAUIRA DO NOT CRUSH 15 mEq 12/12 Inactiv e 2023 08154 27366 1 3 times a day By Mouth [...] For DX- DANDRUFF 12/12 Inactiv e 2023 97267 88553 4 3 times a week Topica l False Acetaminoph en 325 mg tablet [generic] TAKE 2 TABS (650MG) BY MOUTH EVERY 4 HOURS NEEDED FOR TEMP >100 NOT TO EXCEED 3GM/24HRS TAKE 2 TABS (650MG) BY MOUTH EVERY 4 HOURS NEEDED FOR TEMP >100 NOT TO EXCEED 3GM/24HRS For DX-FEVER 2 12/12 Inactiv e 2023 78975 56241 0 By Mouth False MILK OF MAGNESIA ADMINISTER 30 ML BY MOUTH ONCE DAILY NEEDED FOR CONSTIPATION X3 DAYS WITH NO BM. For DX- CONSTIPATION 30ML 12/12 Inactiv e 2023 73659 78102 9 By Mouth False Enema Disposable 19 gram-7 gram/118 mL ADMINISTER ONE ENEMA RECTALLY ONCE DAILY NEEDED FOR CONSTIPATION ON DAY 6 OF NO BM For DX- CONSTIPATION 12/12 Inactiv e 2023 21297 97876 1 Rectal False TUMS EXTRA STR 750MG TAKE (1) TABLET BY MOUTH THREE TIMES DAILY NEEDED FOR INDIGESTION For DX- INDIGESTION 1 12/12 Inactiv e 2023 19828 12229 8 By Mouth False Vitamin D3 25 [...] CONSTIPATION 10 mg 12/12 Inactiv e 2023 14821 26920 1 Rectal False Melatonin 3 mg tablet [generic] 3 mg By Mouth As Needed For DX-INSOMMIA 3 mg 12/12 Inactiv e 2023 59299 84495 8 By Mouth False Hydrocortis one 1 % topical cream [generic] 1 % Topical As Needed For DX- PAIN 1 % 12/12 Inactiv e 2023 62860 54876 1 Topica l False HYDROCORTIS ONE/PARMOXI NE [...] 5-10 50 mg 12/20 Inactiv e 2023 36107 97545 0 Every 4 hours as needed By Mouth False Tylenol 325 mg tablet 325 mg By Mouth Every 4 hours as needed For DX- PAIN PRN FOR MILD PAIN, DO NOT EXCEED 3000MG APAP/24 HOURS 325 mg 12/20 Inactiv e 2023 21482 00801 0 Every 4 hours as needed By Mouth False Baclofen 20 mg tablet [generic] 20 mg By Mouth 4 times a day For MUSCLE SPASMS 20 mg 12/20 Inactiv e 2023 46868 91416 1 4 times a day By Mouth False Calcium citrate 250 mg tablet [generic] Once daily TAKE 4 TABLETS (1000MG) BY MOUTH For SUPPLEMENT 1000 MG 06/26 Inactiv e 2023 17903 61943 6 Once daily By Mouth False Dulcolax (bisacodyl) 10 mg rectal suppository 10 mg Rectal Once daily For CONSTIPATION *MAY HOLD FOR LOOSE STOOLS* 10 mg 2023 Active 2023 65049 83685 1 Once daily Rectal False Gabapentin 300 mg capsule [generic] 300 mg By Mouth 3 times a day For NEUROPATHY 300 mg 2023 Active 2023 60031 49918 4 3 times a day By Mouth False Potassium citrate ER 15 mEq (1,620 mg) tablet,exte nded release [generic] 15 mEq By Mouth 3 times a day For SUPPLEMENT/DI URETIC USE/HYPOCITRA URIA 15 mEq 06/11 Inactiv e 2023 61750 22106 1 3 times a day By Mouth False Potassium chloride ER 20 mEq tablet,exte nded release [generic] 20 mEq By Mouth 3 times a day *DO NOT CRUSH, CHEW OR BREAK* For SUPPLEMENT 20 mEq 12/18 Inactiv e 2023 40838 94225 1 3 times a day By Mouth False Tizanidine 4 mg tablet [generic] 4 mg By Mouth Once daily For MUSCLE SPASMS 4 mg 2023 Active 2023 12600 79695 0 Once daily By Mouth False Tylenol 325 mg tablet 2 tabs By Mouth Every 4 hours as needed For Fever >100 DO NOT EXCEED 3000 MG APAP/24 Hours 2 tabs 12/20 Inactiv e 2023 66203 98472 0 Every 4 hours as needed By Mouth False Dulcolax (bisacodyl) 10 mg rectal suppository Daily as needed For Constipation 1 sup 12/20 Inactiv e 2023 65173 91779 1 Daily as needed Rectal False Fleet Enema 19 gram-7 gram/118 mL 1 Rectal Daily as neededFor Constipation 1 12/20 Inactiv e 2023 12248 52947 6 Daily as needed Rectal False Milk of Magnesia 400 mg/5 mL oral suspension [Magnesium hydroxide] PRN 30ml By Mouth Daily as needed for constipation one time daily if no BM, on day 4 of no BM (PRN refer to instructions) For Constipation For Constipatioin 30ml 12/20 Inactiv e 2023 72566 50457 6 1 time By Mouth False Melatonin 3 mg tablet [generic] 3 mg By Mouth Once daily As Needed For INSOMNIA 3 mg 12/20 Inactiv e 2023 94562 43296 8 Once daily By Mouth False Hydrocortis one 1 % topical cream [generic] 1 % Rectal Four times daily as needed For hemorroid pain 1 % 12/20 Inactiv e 2023 54769 41808 1 Four times daily as needed Rectal False X-STGH ANTACID 750MG CHEW TAKE (1) TABLET BY MOUTH THREE TIMES DAILY NEEDED FOR INDIGESTION 12/20 Inactiv e 2023 60475 08882 4 Three times daily as needed Saline Mist 0.65 % nasal spray aerosol 0.65 % Nares Four times daily as needed For DRYNESS 0.65 % 12/20 Inactiv e 2023 82325 70594 8 Four times daily as needed Nares False Vicks Vaporub 4.7 %-1.2 %-2.6 % topical ointment Apply topically to chest Three times daily as needed For CONGESTION 4.7-1.2 -2.6 12/20 Inactiv e 2023 56358 15164 1 Three times daily as needed Topica l False VITAMIN D3 2000U CAP TAKE ONE (1) CAPSULE BY MOUTH DAILY* DO NOT CRUSH, CHEW OR BREAK* For Supplement 1 capsule 12/19 Inactiv e 2023 36069 27973 0 Once daily By Mouth False Potassium chloride ER 20 mEq tablet,exte nded release(par t/cryst) [generic] TAKE (1) TABLET BY MOUTH THREE TIMES DAILY (MORNING, AFTERNOON, EVENING)*DO NOT CRUSH, CHEW, OR BREAK* For SUPPLEMENT 20 MEQ 06/11 Inactiv e 2023 29591 47228 5 3 times a day By Mouth False Aspirin 81 mg tablet,camron yed release [generic] TAKE ONE (1) TABLET BY MOUTH ONCE DAILY*DO NOT CRUSH, CHEW OR BREAK* For CAD 81 MG 12/22 Inactiv e 2023 22211 08239 0 Once daily By Mouth False Furosemide 20 mg tablet [generic] TAKE 1 AND 1/2 TABLETS (30MG) BY MOUTH ONCE DAILY For CHF 30mg 2023 Active 2023 93040 59147 1 Once daily By Mouth False Polyethylen e glycol 3350 17 gram/dose oral powder [generic] MIX 17 GRAMS (1 CAPFUL) IN 60Z OF LIQUID AND DRINK BY MOUTH ONCE DAILY *HOLD FOR LOOSE STOOLS* For constipation 17 g 2023 Active 2023 64883 63919 3 Once daily By Mouth False Vitamin D3 50 mcg (2,000 unit) capsule Once daily TAKE ONE (1) CAPSULE BY MOUTH DAILY* DO NOT CRUSH, CHEW OR BREAK* For Supplement 1 capsule 02/07 Inactiv e 2023 26129 42147 2 Once daily By Mouth False Fleet Enema 19 gram-7 gram/118 mL 1 Rectal Daily as neededFor Constipation 1 2023 0000 Active 2023 11561 31030 6 Daily as needed Rectal False Tums E-X 300 mg (as calcium carbonate 750 mg) chewable tablet 1 tab By Mouth TAKE (1) TABLET BY MOUTH THREE TIMES DAILY NEEDED FOR INDIGESTION 1 tab 202300 /0000 Active 2023 07265 97928 1 Three times daily as needed By Mouth False Tylenol 325 mg tablet 2 tabs By Mouth Every 4 hours as needed For Fever >100 DO NOT EXCEED 3000 MG APAP/24 Hours 2 tabs 202300 /0000 Active 2023 72173 74628 0 Every 4 hours as needed By Mouth False Vicks Vaporub 4.7 %-1.2 %-2.6 % topical ointment Apply topically to chest Three times daily as needed For CONGESTION topical 202300 Active 2023 38149 27330 1 Three times daily as needed Topica l False Tylenol 325 mg tablet 2 tabs By Mouth Every 4 hours as needed For DX- PAIN PRN FOR MILD PAIN, DO NOT EXCEED 3000MG APAP/24 HOURS 2 tabs 202300 Active 2023 59652 95781 0 Every 4 hours as needed By Mouth False Tramadol 50 mg tablet [generic] 1 tab By Mouth Every 4 hours as needed For DX- PAIN 5-10 1 tab 03/10 Inactiv e 2023 34866 45230 0 Every 4 hours as needed By Mouth False Saline Mist 0.65 % nasal spray aerosol 2 sprays Nares Four times daily as needed For DRYNESS 2 sprays 202300 / Active 2023 09080 51051 8 Four times daily as needed Nares False Dulcolax (bisacodyl) 10 mg rectal suppository Daily as needed For Constipation 1 sup 202300 / Active 2023 86448 82861 1 Daily as needed Rectal False Hydrocortis one-pramoxi ne 1 %-1 % rectal cream [generic] 1 mague Rectal Four times daily as needed For hemorroid pain 1 mague 202300 /0000 Active 2023 24850 92035 4 Four times daily as needed Rectal False Melatonin 3 mg tablet [generic] 1 tab By Mouth At bedtime as needed For INSOMNIA 1 tab 12/24 Inactiv e 2023 48232 17800 8 At bedtime as needed By Mouth False Milk of Magnesia 400 mg/5 mL oral suspension 30ml By Mouth Daily as needed Daily as needed for constipation one time daily if no BM, on day 4 of no BM (PRN refer to instructions) For Constipation For Constipatioin 30ml 2023 Active 2023 34887 69617 2 Daily as needed By Mouth False Baclofen 20 mg tablet [generic] 20 mg By Mouth 4 times a day For MUSCLE SPASMS 20 mg 2023 Active 2023 75721 15694 1 4 times a day By Mouth False Melatonin 3 mg tablet [generic] 1 tab By Mouth At bedtime as needed For INSOMNIA 1 tab 2023 Active 2023 45739 46193 8 At bedtime as needed By Mouth False Bactrim DS 800 mg-160 mg tablet 1 tab By Mouth Twice daily For URINARY TRACT INFECTION, SITE NOT SPECIFIED 1 tab 01/06 Inactiv e 2023 55824 02173 1 Twice daily By Mouth N39.0 False Cefdinir 300 mg capsule [generic] 300 mg By Mouth Twice daily For UTI 300 mg 01/07 Inactiv e 2023 26772 19527 0 Twice daily By Mouth False Cefdinir 300 mg capsule [generic] 300 mg By Mouth Twice daily For UTI 300 mg 01/17 Inactiv e 2023 24105 52777 0 Twice daily By Mouth False Zyrtec 10 mg tablet 10 mg By Mouth Once daily For sinus congestion 10 mg 01/22 Inactiv e 2023 82352 56162 0 Once daily By Mouth False Tobramycin 0.3 %-dexametha sone 0.1 % eye drops,suspe nsion [generic] 0.3-0.1 % Left Eye 4 times a day For eye infection 0.3-0.1 % 02/05 Inactiv e 2023 87027 18884 5 4 times a day Left Eye False Fluconazole 150 mg tablet [generic] 150 mg By Mouth 1 time For yeast infection 150 mg 02/15 Inactiv e 2023 02492 13690 2 1 time By Mouth False Tramadol 50 mg tablet [generic] 1 tab By Mouth Every 4 hours as needed For DX- PAIN 5-10 1 tab 2023 00/00 /0000 Active 2023 93018 85386 0 Every 4 hours as needed By Mouth False Tobramycin 0.3 %-dexametha sone 0.1 % eye drops,suspe nsion [generic] 1 drop Left Eye 4 times a day For Inflammation of left eye 1 drop 05/08 Inactiv e 2023 45771 65159 5 4 times a day Left Eye False Voltaren Arthritis Pain 1 % topical gel 2 gm Topical Twice daily to rigth shoulder for 2 weeks For pain 2 gm 05/08 Inactiv e 2023 19559 13225 1 Twice daily Topica l False Chlorthalid one 25 mg tablet [generic] 12.5mg By Mouth Once daily For HTN 12.5mg 05/06 Inactiv e 2023 27087 36073 0 Once daily By Mouth False Chlorthalid one 25 mg tablet [generic] 12.5mg By Mouth Once daily For HTN 12.5mg 05/07 Inactiv e 2023 19921 24651 0 Once daily By Mouth False Chlorthalid one 25 mg tablet [generic] 05/07 Inactiv e 2023 44350 86114 0 Chlorthalid one 25 mg tablet [generic] 12.5mg By Mouth Once daily For HTN 12.5mg 06/26 Inactiv e 2023 26920 94650 0 Once daily By Mouth False Norvasc 5 mg tablet 5mg By Mouth Once daily, hold medication if systolic is less than 90 For HYPERTENSIVE HEART DISEASE WITHOUT HEART FAILURE 5mg 06/03 Inactiv e 2023 13850 44954 1 Once daily By Mouth I11.9 False Norvasc 5 mg tablet 5mg By Mouth Once daily, hold medication if systolic is less than 90 For HYPERTENSIVE HEART DISEASE WITHOUT HEART FAILURE 5mg 06/03 Inactiv e 2023 30578 51561 1 Once daily By Mouth I11.9 False Norvasc 5 mg tablet 5mg By Mouth Once daily, hold medication if systolic is less than 90 For HYPERTENSIVE HEART DISEASE WITHOUT HEART FAILURE 5mg 06/26 Inactiv e 2023 60617 62747 1 Once daily By Mouth I11.9 False [...] 10 mg 2023 00/00 /0000 Active 2023 75390 85676 1 Once daily By Mouth False DISCONTINUE [...] CAD 81 mg 06/14 Inactiv e 2023 44933 40002 9 Once daily By Mouth False Aspirin 81 mg tablet,camron yed release [generic] 06/14 Inactiv e 2023 34594 05689 9 Aspirin 81 mg tablet,camron yed release [generic] 81 mg By Mouth Once daily Do not crush, chew, or break For CAD 81 mg 06/154 Inactiv e 2023 48631 50742 9 Once daily By Mouth False Cefpodoxime 200 mg tablet [generic] 200mg By Mouth Twice daily For UTI 200mg 07/04 Inactiv e 2023 48028 18137 0 Twice daily By Mouth False Calcium citrate 250 mg tablet [generic] 06/26 Inactiv e 2023 99723 12496 6 Calcium citrate 250 mg tablet [generic] Once daily TAKE 4 TABLETS (1000MG) BY MOUTH For SUPPLEMENT 500 MG 2023 Active 2023 31935 35213 6 Once daily By Mouth False Norvasc 5 mg tablet 7.5 mg By Mouth Once daily Hold medication if SBP <90 For HYPERTENSIVE HEART DISEASE WITHOUT HEART FAILURE 7.5 mg 06/30 Inactiv e 2023 27676 98067 1 Once daily By Mouth I11.9 False Norvasc 5 mg tablet 7.5 mg By Mouth Once daily Hold medication if SBP <90 For HYPERTENSIVE HEART DISEASE WITHOUT HEART FAILURE 7.5 mg 07/06 Inactiv e 2023 14619 54662 1 Once daily By Mouth I11.9 False Simethicone 125 mg capsule [generic] 2 capule By Mouth Twice daily as needed For bloating/gas pain 2 capule 2023 Active 2023 29223 98929 0 Twice daily as needed By Mouth False Cepacol Sore Throat (benzocaine -menthol) 15 mg-2.6 mg lozenges 2 lozenges By Mouth Every 6 hours as needed For sore throat 2 lozenge s 2023 Active 2023 58579 45016 6 Every 6 hours as needed By Mouth False Cefepime 1 gram solution for injection [generic] 1g Intramuscular Every 12 hours 1g intramuscular ly ever 12 hours For UTI 1g 07/06 Inactiv e 2023 05842 83869 4 Every 12 hours Intram uscula r False Cefepime 1 gram solution for injection [generic] 07/06 Inactiv e 2023 24803 20432 4 Cefepime 1 gram solution for injection [generic] 1g Intramuscular Every 12 hours 1g intramuscular ly ever 12 hours For UTI Reconstitute with 2.4 ML of NSS. 1g 07/08 Inactiv e 2023 52707 57468 4 Every 12 hours Intram uscula r False Norvasc 5 mg tablet 07/06 Inactiv e 2023 45904 57877 1 I11.9 Norvasc 5 mg tablet 7.5 mg By Mouth Once daily Hold medication if SBP <90 For HYPERTENSIVE HEART DISEASE WITHOUT HEART FAILURE 7.5 mg 07/18 Inactiv e 2023 81717 38214 1 Once daily By Mouth I11.9 False Cefepime 1 gram solution for injection [generic] 07/08 Inactiv e 2023 15117 44044 4 Cefepime 1 gram solution for injection [generic] 1g Intramuscular Every 12 hours 1g intramuscular ly ever 12 hours For UTI Reconstitute with 2.4 ML of NSS. 1g 07/08 Inactiv e 2023 84475 82849 4 Every 12 hours Intram uscula r False Cefepime 1 gram solution for injection [generic] 07/08 Inactiv e 2023 63465 10088 4 Cefepime 1 gram solution for injection [generic] 1g Intramuscular Every 12 hours 1g intramuscular ly ever 12 hours For UTI Reconstitute with 2.4 ML of NSS. 1g 07/11 Inactiv e 2023 45588 70483 4 Every 12 hours Intram uscula r False Fleet Enema 19 gram-7 gram/118 mL 1 Rectal 1 time For constipation 1 07/16 Inactiv e 2024 66242 05676 6 1 time Rectal False Fleet Enema 19 gram-7 gram/118 mL 1 Rectal 1 time For constipation 1 07/17 Inactiv e 2024 91448 91747 6 1 time Rectal False Norvasc 5 mg tablet 7.5 mg By Mouth Once daily For HYPERTENSIVE HEART DISEASE WITHOUT HEART FAILURE 7.5 mg 2024 00/00 /0000 Active 2024 72319 47057 1 Once daily By Mouth I11.9 False Potassium chloride ER 20 mEq tablet,exte nded release(par t/cryst) [generic] 40 mEq By Mouth 1 time For low potassium prior to surgery 40 mEq 07/18 Inactiv e 2024 14991 81256 1 1 time By Mouth False Potassium chloride ER 20 mEq tablet,exte nded release(par t/cryst) [generic] 40 mEq By Mouth 1 time For low potassium prior to surgery 40 mEq 07/18 Inactiv e 2024 46322 21179 1 1 time By Mouth False Potassium chloride ER 20 mEq tablet,exte nded release(par t/cryst) [generic] 40 mEq By Mouth 1 time For low potassium 40 mEq 07/18 Inactiv e 2024 21611 82264 1 1 time By Mouth False Potassium chloride ER 20 mEq tablet,exte nded release(par t/cryst) [generic] 40 mEq By Mouth 1 time For low potassium 40 mEq 07/18 Inactiv e 2024 91973 96383 1 1 time By Mouth False Potassium chloride ER 20 mEq tablet,exte nded release [generic] 2 By Mouth 1 time For low potassium 2 07/19 Inactiv e 2024 09344 47603 1 1 time By Mouth False Potassium chloride ER 20 mEq tablet,exte nded release [generic] 2 capsules capsules By Mouth 1 time Please send capsule (2 capsules) For low potassium 2 capsule s 07/20 Inactiv e 2024 40138 76542 1 1 time By Mouth False Potassium chloride ER 20 mEq tablet,exte nded release(par t/cryst) [generic] TAKE (2) TABLETS (40MEQ) BY MOUTH X1 DOSE 07/20 Inactiv e 2024 50072 10512 5 Cefepime 1 gram solution for injection [generic] 1 gram Intramuscular Every 12 hours For Urinary Tract Infection 1 gram 07/21 Inactiv e 2024 45194 49653 4 Every 12 hours Intram uscula r False Cefepime 1 gram solution for injection [generic] 07/21 Inactiv e 2024 97430 33672 4 Cefepime 1 gram solution for injection [generic] 1 gram Intramuscular Every 12 hours For Urinary Tract Infection 1 gram 07/22 Inactiv e 2024 18870 39937 4 Every 12 hours Intram uscula r False Cefepime 1 gram solution for injection [generic] 1 gram Intramuscular Every 12 hours For Urinary Tract Infection 1 gram 07/24 Inactiv e 2024 78530 77863 4 Every 12 hours Intram uscula r False Klor-Con 10 mEq tablet,exte nded release Klor- Con GIVE 2 Capsules daily Do NOT SEND Tablets Requesting Micro K 10 meq capsules For hyponatremia 2 capsule s 2024 00/00 /0000 Active 2024 52572 74178 1 Once daily By Mouth False Cefepime 1 gram solution for injection [generic] 1 gram Intramuscular Every 12 hours For Urinary Tract Infection 1 gram 07/24 Inactiv e 2024 62503 18072 4 Every 12 hours Intram uscula r False Cefepime 1 gram solution for injection [generic] 1 gram Intramuscular Every 12 hours For Urinary Tract Infection 1 gram 07/24 Inactiv e 2024 78511 68011 4 Every 12 hours Intram uscula r False Cefepime 1 gram solution for injection [generic] 1 gram Intramuscular Every 12 hours For Urinary Tract Infection 1 gram 07/28 Active 2024 38328 88174 4 Every 12 hours Intram uscula r False Nystatin 100,000 unit/gram topical cream [generic] 100,000 unit Topical As Needed For DX- EXCORIATION 100,000 unit 12/12 Inactiv e 2023 45334 37004 5 Topica l False Vicks Vaporub 4.7 %-1.2 %-2.6 % topical ointment 4.7-1.2-2.6 Topical 3 times a day As Needed For DX- CONGESTION 4.7-1.2 -2.6 12/12 Inactiv e 2023 46376 66752 1 3 times a day Topica l False Ketoconazol e 2 % shampoo [generic] APPLY SHAMPOO TOPICALLY TO SCALP DURING HAIR WASHINGDX: ELVIA DERM OF SCALP For DX- ELVIA DERM OF SCALP 12/12 Inactiv e 2023 55879 29833 4 Topica l False THERA SILICONE SKIN GUARD Topical Twice daily 1 APPLICATION TOPICALLY IN THE MORNING AND AT BEDTIME TO SCROTUM For DX- PREVENTION 2023 0000 /0000 Active 2023 Twice daily Topica l False Selenium sulfide 2.5 % lotion [generic] 2.5 % Topical EVERY MONDAY, MONDAY AND MONDAY AFTER SHOWER For DANDRUFF 2.5 % 2023 00/00 /0000 Active 2023 09524 37232 4 3 times a week Topica l False Nystatin (bulk) 100 million unit powder [generic] 100 million Topical Twice daily as needed For EXOCORATION 100 million 12/20 Inactiv e 2023 30426 18337 1 Twice daily as needed Topica l False Ketoconazol e 2 % shampoo [generic] Once daily APPLY SHAMPOO TOPICALLY TO SCALP DURING HAIR WASHING ON SHOWER DAYS- , , MON For ELVIA DERM OF SCAP 2 % 2023 00/00 /0000 Active 2023 59021 01330 4 Once daily Topica l False Nystatin 100,000 unit/gram topical cream [generic] 1 mague Topical Twice daily as needed For EXOCORATION 1 mague 06/05 Inactiv e 2023 51937 00142 5 Twice daily as needed Topica l False Nystatin 100,000 unit/gram topical powder [generic] 100,000 unit Topical Twice daily to scrotum with AM and PM care For Scrotal excoriation 100,000 unit 06/05 Inactiv e 2023 79201 31539 5 Twice daily Topica l False Problems [...] adjustment of urinary device 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 07/21 Active N31.9 [...] weight Temperature SpO2 Blood Sugar Pulse Respirations 11479 216 88756 1 254.10 [place] [address]693 216 28406 2 79.00 mm[Hg] - Sitting 157.00 mm[Hg] - Sitting 73 NI 254.10 NI 36.30 Tympanic 95.00 % 72.00/ min 16.00/min 17019 216 81592 4 98.80 Tympanic 18020 216 81969 2 78.00 mm[Hg] - Sitting 164.00 mm[Hg] - Sitting 52632 217 91858 3 98.20 Tympanic 76220 217 26492 5 73.00 mm[Hg] - Sitting 159.00 mm[Hg] - Sitting 87945 217 24959 9 98.40 Forehead Scan 98705 218 00786 3 97.90 Tympanic 74200 218 81703 5 77.00 mm[Hg] - Sitting 137.00 mm[Hg] - Sitting 30645 219 64724 0 97.70 Tympanic 27720 219 15666 6 97.60 Tympanic 18604 219 94225 4 76.00 mm[Hg] - Sitting 139.00 mm[Hg] - Sitting 05662 219 53206 4 97.80 Forehead Scan 35941 220 60082 9 97.90 Tympanic 81153 220 86728 9 76.00 mm[Hg] - Sitting 138.00 mm[Hg] - Sitting 84865 220 90293 6 98.10 Tympanic 37172 221 45245 5 67.00 mm[Hg] - Sitting 142.00 mm[Hg] - Sitting 37538 221 12528 8 98.20 Tympanic 07892 221 72897 0 98.30 Tympanic 89384 222 91410 7 98.20 Tympanic 91970 222 29863 8 97.90 Tympanic 91323 223 16075 3 98.20 Tympanic 71299 223 67715 3 98.00 Tympanic 18720 224 93300 0 59.00 mm[Hg] - Sitting 111.00 mm[Hg] - Sitting 98.40 Forehead Scan 95.00 % 56.00/ min 18.00/min 06744 224 55394 9 98.20 Forehead Scan 55316 224 93826 3 97.90 Tympanic 37832 225 87980 4 98.20 Tympanic 16671 225 08838 8 97.50 Forehead Scan 22463 228 49853 0 55.00 mm[Hg] - Sitting 118.00 mm[Hg] - Sitting 98.40 Tympanic 69.00/ min 61534 229 00853 8 78.00 mm[Hg] - Sitting 152.00 mm[Hg] - Sitting 39656 230 15318 0 62.00 mm[Hg] - Sitting 122.00 mm[Hg] - Sitting 34490 231 83847 7 72.00 mm[Hg] - Lying Down 140.00 mm[Hg] - Lying Down 23148 101 12189 3 97.70 Forehead Scan 39333 101 54006 1 254.10 NI 69.00/ min 61390 101 30446 9 72.00 mm[Hg] - Sitting 142.00 mm[Hg] - Sitting 97.70 Tympanic 18.00/min 05715 101 51256 3 72.00 mm[Hg] - Lying Down 142.00 mm[Hg] - Lying Down 74486 102 48108 8 68.00 mm[Hg] - Lying Down 152.00 mm[Hg] - Lying Down 41484 103 88803 5 74.00 mm[Hg] - Sitting 158.00 mm[Hg] - Sitting 64867 104 62315 9 78.00 mm[Hg] - Sitting 144.00 mm[Hg] - Sitting 06575 105 54092 5 68.00 mm[Hg] - Sitting 138.00 mm[Hg] - Sitting 03349 106 95734 1 70.00 mm[Hg] - Sitting 138.00 mm[Hg] - Sitting 47450 107 07458 1 67.00 mm[Hg] - Sitting 142.00 mm[Hg] - Sitting 33878 108 98141 0 74.00 mm[Hg] - Sitting 143.00 mm[Hg] - Sitting 07542 110 24974 6 85.00 mm[Hg] - Sitting 160.00 mm[Hg] - Sitting 97.80 Tympanic 93.00 % 76.00/ min 18.00/min 09985 111 77605 1 83.00 mm[Hg] - Sitting 129.00 mm[Hg] - Sitting 98.60 Tympanic 92.00 % 71.00/ min 18.00/min 53201 111 15974 5 60.00 mm[Hg] - Sitting 114.00 mm[Hg] - Sitting 98.70 Tympanic 92.00 % 76.00/ min 18.00/min 68647 112 50340 4 55.00 mm[Hg] - Sitting 125.00 mm[Hg] - Sitting 98.60 Tympanic 91.00 % 68.00/ min 18.00/min 07468 112 09152 9 75.00 mm[Hg] - Sitting 174.00 mm[Hg] - Sitting 97.70 Tympanic 96.00 % 71.00/ min 18.00/min 88898 113 81484 2 77.00 mm[Hg] - Sitting 139.00 mm[Hg] - Sitting 98.10 Tympanic 97.00 % 81.00/ min 18.00/min 86614 113 99443 4 78.00 mm[Hg] - Sitting 153.00 mm[Hg] - Sitting 98.40 Tympanic 93.00 % 69.00/ min 18.00/min 17139 114 27771 5 76.00 mm[Hg] - Sitting 137.00 mm[Hg] - Sitting 98.10 Tympanic 97.00 % 80.00/ min 18.00/min 57935 114 64715 0 76.00 mm[Hg] - Sitting 145.00 mm[Hg] - Sitting 97.90 Tympanic 98.00 % 73.00/ min 18.00/min 41977 115 95309 3 98.40 Tympanic 53152 115 63325 5 79.00 mm[Hg] - Sitting 143.00 mm[Hg] - Sitting 97.90 Tympanic 97.00 % 85.00/ min 18.00/min Immunizations Vaccine Date Status COVID-19 [...]
--- OUTSIDE RECORDS SUMMARY | 2024-07-26 11:10 | External Medical Summary | Continuity Of Care Document ---
Author Name Unknown Address [address] [place] [address] Organization [facility] () Care Team Providers Care Frontload Driver Name Role Phone DO Pritchett Amy Primary Care Provider [phone] Allergies Allergy Reaction Start Date End Date Status AMINOGLYCOSIDES Active CIPRO Active GENTAMICIN Active NSAIDS (NON-STEROIDAL ANTI-INFLAMMATORY DRUG) 0 Active IBUPROFEN Active QUINOLONES Active VALIUM Active Medications Medication Instructions Dosage Start Date End Date Status Order Date Drug Code Frequency Route of Admin Diagnosis Code Substitutions Allowed Spikevax [id number](1 2y up)(PF) 50 mcg/0.5 mL intramuscul ar suspension [COVID [id number](12 up)(andu)(P F)] 0.5mL Intramuscular 1 time Monitory 15 Minutes post injection for adverse effects; record site/temp For COVID 19 PREVENTION 0.5mL 01/02 Inactiv e 2023 71250 19385 4 1 time Intram uscula r False [facility] - Nurse initials indicate verificatio n that [id number] vaccine was administere d by [facility] jon 1 Intramuscular 1 time ( Indicate vaccine type) For vaccine 1 05/03 Inactiv e 2023 1 time Intram uscula r False Lisinopril 40 mg tablet [generic] TAKE ONE (1) TABLET BY MOUTH IN THE MORNING. For DX- HTN 1 2023 Active 2023 80866 71233 1 Once daily By Mouth False Tizanidine 2 mg tablet [generic] TAKE ONE (1) TABLET BY MOUTH ONCE DAILY For MUSCLE SPASM 1 2023 Active 2023 74338 01692 0 Once daily By Mouth M62.838 False Tamsulosin 0.4 mg capsule [generic] TAKE (1) CAPSULE BY MOUTH AT BEDTIME For SPASMS 1 2023 Active 2023 70180 03330 0 Once daily By Mouth False Aspirin 81 mg tablet Once daily 1 TABLET BY MOUTH IN THE MORNING For DX- CAD DO NOT CRUSH, CHEW OR BREAK 81 mg 06/12 Inactiv e 2023 Once daily By Mouth False Baclofen 20 mg tablet [generic] 20 mg By Mouth 4 times a day For DX- MUSCLE SPASMS 20 mg 12/12 Inactiv e 2023 48389 63086 1 4 times a day By Mouth False Calcium citrate 250 mg tablet Once daily 4 TABLET BY MOUTH For DX- SUPPLEMENT 250 mg calci 12/12 Inactiv e 2023 Once daily By Mouth False Co Q-10 100 mg capsule 100 mg By Mouth Once daily For DX- SUPPLEMENT 100 mg 06/20 Inactiv e 2023 48338 02245 5 Once daily By Mouth False Furosemide 20 mg tablet [generic] 20 mg By Mouth Once daily For DX-CHF 20 mg 12/12 Inactiv e 2023 32472 00730 0 Once daily By Mouth False Gabapentin 300 mg capsule [generic] 300 mg By Mouth 3 times a day For DX- NEUROPATHY 300 mg 12/12 Inactiv e 2023 13177 20573 4 3 times a day By Mouth False Loratadine 10 mg tablet [generic] 10 mg By Mouth Once daily For DX- ALLERGIES 10 mg 2023 Active 2023 39104 84537 1 Once daily By Mouth False Miralax 17 gram/dose oral powder 17 gram/dose By Mouth IN THE MORNING Mix 1 TABLESPOON IN 8 OZ OF FLUID HOLD FOR LOOSE STOOLS For DX- CONSTIPATION 17 gram/do se 12/12 Inactiv e 2023 97489 68931 0 Once daily By Mouth False Paroxetine 30 mg tablet [generic] 30 mg By Mouth Once daily For DX- DEPRESSION 30 mg 2023 00/00 /0000 Active 2023 29214 39968 3 Once daily By Mouth False Potassium citrate ER 15 mEq (1,620 mg) tablet,exte nded release [generic] 15 mEq By Mouth 3 times a day For DX- SUPPLEMENT/DI URETIC USE/ HYPOCITRAUIRA DO NOT CRUSH 15 mEq 12/12 Inactiv e 2023 16071 99257 1 3 times a day By Mouth [...] For DX- DANDRUFF 12/12 Inactiv e 2023 26974 66791 4 3 times a week Topica l False Acetaminoph en 325 mg tablet [generic] TAKE 2 TABS (650MG) BY MOUTH EVERY 4 HOURS NEEDED FOR TEMP >100 NOT TO EXCEED 3GM/24HRS TAKE 2 TABS (650MG) BY MOUTH EVERY 4 HOURS NEEDED FOR TEMP >100 NOT TO EXCEED 3GM/24HRS For DX-FEVER 2 12/12 Inactiv e 2023 69962 46961 0 By Mouth False MILK OF MAGNESIA ADMINISTER 30 ML BY MOUTH ONCE DAILY NEEDED FOR CONSTIPATION X3 DAYS WITH NO BM. For DX- CONSTIPATION 30ML 12/12 Inactiv e 2023 51997 58528 9 By Mouth False Enema Disposable 19 gram-7 gram/118 mL ADMINISTER ONE ENEMA RECTALLY ONCE DAILY NEEDED FOR CONSTIPATION ON DAY 6 OF NO BM For DX- CONSTIPATION 12/12 Inactiv e 2023 20458 38865 1 Rectal False TUMS EXTRA STR 750MG TAKE (1) TABLET BY MOUTH THREE TIMES DAILY NEEDED FOR INDIGESTION For DX- INDIGESTION 1 12/12 Inactiv e 2023 46866 67678 8 By Mouth False Vitamin D3 25 [...] CONSTIPATION 10 mg 12/12 Inactiv e 2023 86807 24193 1 Rectal False Melatonin 3 mg tablet [generic] 3 mg By Mouth As Needed For DX-INSOMMIA 3 mg 12/12 Inactiv e 2023 48593 30152 8 By Mouth False Hydrocortis one 1 % topical cream [generic] 1 % Topical As Needed For DX- PAIN 1 % 12/12 Inactiv e 2023 43917 04903 1 Topica l False HYDROCORTIS ONE/PARMOXI NE [...] 5-10 50 mg 12/20 Inactiv e 2023 39592 67203 0 Every 4 hours as needed By Mouth False Tylenol 325 mg tablet 325 mg By Mouth Every 4 hours as needed For DX- PAIN PRN FOR MILD PAIN, DO NOT EXCEED 3000MG APAP/24 HOURS 325 mg 12/20 Inactiv e 2023 11703 04672 0 Every 4 hours as needed By Mouth False Baclofen 20 mg tablet [generic] 20 mg By Mouth 4 times a day For MUSCLE SPASMS 20 mg 12/20 Inactiv e 2023 29849 69257 1 4 times a day By Mouth False Calcium citrate 250 mg tablet [generic] Once daily TAKE 4 TABLETS (1000MG) BY MOUTH For SUPPLEMENT 1000 MG 06/26 Inactiv e 2023 21383 39509 6 Once daily By Mouth False Dulcolax (bisacodyl) 10 mg rectal suppository 10 mg Rectal Once daily For CONSTIPATION *MAY HOLD FOR LOOSE STOOLS* 10 mg 2023 Active 2023 06020 79277 1 Once daily Rectal False Gabapentin 300 mg capsule [generic] 300 mg By Mouth 3 times a day For NEUROPATHY 300 mg 2023 Active 2023 78953 48501 4 3 times a day By Mouth False Potassium citrate ER 15 mEq (1,620 mg) tablet,exte nded release [generic] 15 mEq By Mouth 3 times a day For SUPPLEMENT/DI URETIC USE/HYPOCITRA URIA 15 mEq 06/11 Inactiv e 2023 13446 20459 1 3 times a day By Mouth False Potassium chloride ER 20 mEq tablet,exte nded release [generic] 20 mEq By Mouth 3 times a day *DO NOT CRUSH, CHEW OR BREAK* For SUPPLEMENT 20 mEq 12/18 Inactiv e 2023 23241 19499 1 3 times a day By Mouth False Tizanidine 4 mg tablet [generic] 4 mg By Mouth Once daily For MUSCLE SPASMS 4 mg 2023 Active 2023 72207 41734 0 Once daily By Mouth False Tylenol 325 mg tablet 2 tabs By Mouth Every 4 hours as needed For Fever >100 DO NOT EXCEED 3000 MG APAP/24 Hours 2 tabs 12/20 Inactiv e 2023 67778 90288 0 Every 4 hours as needed By Mouth False Dulcolax (bisacodyl) 10 mg rectal suppository Daily as needed For Constipation 1 sup 12/20 Inactiv e 2023 21234 54282 1 Daily as needed Rectal False Fleet Enema 19 gram-7 gram/118 mL 1 Rectal Daily as neededFor Constipation 1 12/20 Inactiv e 2023 36796 41475 6 Daily as needed Rectal False Problems Code [...] adjustment of urinary device 07/21/2023 Active Z79.01 half-way (current) use of anticoagulants 07/21 Active N31.9 [...] weight Temperature SpO2 Blood Sugar Pulse Respirations 25023 216 14817 1 254.10 NI [address]22 216 18507 2 79.00 mm[Hg] - Sitting 157.00 mm[Hg] - Sitting 73 NI 254.10 NI 36.30 Tympanic 95.00 % 72.00/ min 16.00/min 59011 216 29493 4 98.80 Tympanic 27789 216 04317 2 78.00 mm[Hg] - Sitting 164.00 mm[Hg] - Sitting 19605 217 03830 3 98.20 Tympanic 70456 217 64899 5 73.00 mm[Hg] - Sitting 159.00 mm[Hg] - Sitting 30591 217 41639 9 98.40 Forehead Scan 86939 218 75201 3 97.90 Tympanic 01879 218 65505 5 77.00 mm[Hg] - Sitting 137.00 mm[Hg] - Sitting 00969 219 24286 0 97.70 Tympanic 35196 219 94341 6 97.60 Tympanic 01838 219 56996 4 76.00 mm[Hg] - Sitting 139.00 mm[Hg] - Sitting 52268 219 26066 4 97.80 Forehead Scan 52541 220 79393 9 97.90 Tympanic 38541 220 20603 9 76.00 mm[Hg] - Sitting 138.00 mm[Hg] - Sitting 85943 220 93141 6 98.10 Tympanic 21164 221 00603 5 67.00 mm[Hg] - Sitting 142.00 mm[Hg] - Sitting 10735 221 34798 8 98.20 Tympanic 79404 221 49857 0 98.30 Tympanic 09667 222 71568 7 98.20 Tympanic 69572 222 23479 8 97.90 Tympanic 18333 223 06818 3 98.20 Tympanic 18473 223 94573 3 98.00 Tympanic 25950 224 30097 0 59.00 mm[Hg] - Sitting 111.00 mm[Hg] - Sitting 98.40 Forehead Scan 95.00 % 56.00/ min 18.00/min 82458 224 62764 9 98.20 Forehead Scan 02680 224 87468 3 97.90 Tympanic 29709 225 67114 4 98.20 Tympanic 89219 225 80474 8 97.50 Forehead Scan 40728 228 42073 0 55.00 mm[Hg] - Sitting 118.00 mm[Hg] - Sitting 98.40 Tympanic 69.00/ min 13080 229 20349 8 78.00 mm[Hg] - Sitting 152.00 mm[Hg] - Sitting 66811 230 44119 0 62.00 mm[Hg] - Sitting 122.00 mm[Hg] - Sitting 02171 231 74683 7 72.00 mm[Hg] - Lying Down 140.00 mm[Hg] - Lying Down 50343 101 47811 3 97.70 Forehead Scan 10268 101 91330 1 254.10 NI 69.00/ min 91281 101 33713 9 72.00 mm[Hg] - Sitting 142.00 mm[Hg] - Sitting 97.70 Tympanic 18.00/min 95241 101 51026 3 72.00 mm[Hg] - Lying Down 142.00 mm[Hg] - Lying Down 50738 102 09327 8 68.00 mm[Hg] - Lying Down 152.00 mm[Hg] - Lying Down 63753 103 46018 5 74.00 mm[Hg] - Sitting 158.00 mm[Hg] - Sitting 16730 104 15340 9 78.00 mm[Hg] - Sitting 144.00 mm[Hg] - Sitting 60328 105 86066 5 68.00 mm[Hg] - Sitting 138.00 mm[Hg] - Sitting 38557 106 39493 1 70.00 mm[Hg] - Sitting 138.00 mm[Hg] - Sitting 67819 107 17691 1 67.00 mm[Hg] - Sitting 142.00 mm[Hg] - Sitting 62814 108 44572 0 74.00 mm[Hg] - Sitting 143.00 mm[Hg] - Sitting 44461 110 61405 6 85.00 mm[Hg] - Sitting 160.00 mm[Hg] - Sitting 97.80 Tympanic 93.00 % 76.00/ min 18.00/min 36862 111 42470 1 83.00 mm[Hg] - Sitting 129.00 mm[Hg] - Sitting 98.60 Tympanic 92.00 % 71.00/ min 18.00/min 32382 111 82322 5 60.00 mm[Hg] - Sitting 114.00 mm[Hg] - Sitting 98.70 Tympanic 92.00 % 76.00/ min 18.00/min 01840 112 35218 4 55.00 mm[Hg] - Sitting 125.00 mm[Hg] - Sitting 98.60 Tympanic 91.00 % 68.00/ min 18.00/min 07780 112 20946 9 75.00 mm[Hg] - Sitting 174.00 mm[Hg] - Sitting 97.70 Tympanic 96.00 % 71.00/ min 18.00/min 20408 113 10438 2 77.00 mm[Hg] - Sitting 139.00 mm[Hg] - Sitting 98.10 Tympanic 97.00 % 81.00/ min 18.00/min 22464 113 88383 4 78.00 mm[Hg] - Sitting 153.00 mm[Hg] - Sitting 98.40 Tympanic 93.00 % 69.00/ min 18.00/min 27895 114 80175 5 76.00 mm[Hg] - Sitting 137.00 mm[Hg] - Sitting 98.10 Tympanic 97.00 % 80.00/ min 18.00/min Immunizations Vaccine Date Status COVID-19 [...]
--- OUTSIDE RECORDS SUMMARY | 2024-07-26 11:10 | External Medical Summary | Continuity Of Care Document ---
Author Name Unknown Address [address] [place] [address] Organization [facility] () Care Team Providers Care Supervisor Jewelry Department Name Role Phone DO Pritchett Amy Primary Care Provider [phone] Allergies Allergy Reaction Start Date End Date Status AMINOGLYCOSIDES Active CIPRO Active GENTAMICIN Active NSAIDS (NON-STEROIDAL ANTI-INFLAMMATORY DRUG) 0 Active IBUPROFEN Active QUINOLONES Active VALIUM Active Medications Medication Instructions Dosage Start Date End Date Status Order Date Drug Code Frequency Route of Admin Diagnosis Code Substitutions Allowed Spikevax 5021-8888(1 2y up)(PF) 50 mcg/0.5 mL intramuscul ar suspension [COVID ego05-26(12 up)(andu)(P F)] 0.5mL Intramuscular 1 time Monitory 15 Minutes post injection for adverse effects; record site/temp For COVID 19 PREVENTION 0.5mL 01/02 Inactiv e 2023 48724 76403 4 1 time Intram uscula r False [facility] - Nurse initials indicate verificatio n that [id number] vaccine was administere d by [facility] Representat jon 1 Intramuscular 1 time ( Indicate vaccine type) For vaccine 1 05/03 Inactiv e 2023 1 time Intram uscula r False Lisinopril 40 mg tablet [generic] TAKE ONE (1) TABLET BY MOUTH IN THE MORNING. For DX- HTN 1 2023 Active 2023 22503 19462 1 Once daily By Mouth False Tizanidine 2 mg tablet [generic] TAKE ONE (1) TABLET BY MOUTH ONCE DAILY For MUSCLE SPASM 1 2023 Active 2023 52234 03709 0 Once daily By Mouth M62.838 False Tamsulosin 0.4 mg capsule [generic] TAKE (1) CAPSULE BY MOUTH AT BEDTIME For SPASMS 1 2023 Active 2023 97885 22573 0 Once daily By Mouth False Aspirin 81 mg tablet Once daily 1 TABLET BY MOUTH IN THE MORNING For DX- CAD DO NOT CRUSH, CHEW OR BREAK 81 mg 06/12 Inactiv e 2023 Once daily By Mouth False Baclofen 20 mg tablet [generic] 20 mg By Mouth 4 times a day For DX- MUSCLE SPASMS 20 mg 12/12 Inactiv e 2023 78580 12385 1 4 times a day By Mouth False Calcium citrate 250 mg tablet Once daily 4 TABLET BY MOUTH For DX- SUPPLEMENT 250 mg calci 12/12 Inactiv e 2023 Once daily By Mouth False Co Q-10 100 mg capsule 100 mg By Mouth Once daily For DX- SUPPLEMENT 100 mg 06/20 Inactiv e 2023 54804 72955 5 Once daily By Mouth False Furosemide 20 mg tablet [generic] 20 mg By Mouth Once daily For DX-CHF 20 mg 12/12 Inactiv e 2023 66433 56969 0 Once daily By Mouth False Gabapentin 300 mg capsule [generic] 300 mg By Mouth 3 times a day For DX- NEUROPATHY 300 mg 12/12 Inactiv e 2023 11467 79966 4 3 times a day By Mouth False Loratadine 10 mg tablet [generic] 10 mg By Mouth Once daily For DX- ALLERGIES 10 mg 2023 Active 2023 37789 09622 1 Once daily By Mouth False Miralax 17 gram/dose oral powder 17 gram/dose By Mouth IN THE MORNING Mix 1 TABLESPOON IN 8 OZ OF FLUID HOLD FOR LOOSE STOOLS For DX- CONSTIPATION 17 gram/do se 12/12 Inactiv e 2023 48214 85995 0 Once daily By Mouth False Paroxetine 30 mg tablet [generic] 30 mg By Mouth Once daily For DX- DEPRESSION 30 mg 2023 00/00 /0000 Active 2023 57835 91588 3 Once daily By Mouth False Potassium citrate ER 15 mEq (1,620 mg) tablet,exte nded release [generic] 15 mEq By Mouth 3 times a day For DX- SUPPLEMENT/DI URETIC USE/ HYPOCITRAUIRA DO NOT CRUSH 15 mEq 12/12 Inactiv e 2023 17458 86473 1 3 times a day By Mouth [...] For DX- DANDRUFF 12/12 Inactiv e 2023 60710 30179 4 3 times a week Topica l False Acetaminoph en 325 mg tablet [generic] TAKE 2 TABS (650MG) BY MOUTH EVERY 4 HOURS NEEDED FOR TEMP >100 NOT TO EXCEED 3GM/24HRS TAKE 2 TABS (650MG) BY MOUTH EVERY 4 HOURS NEEDED FOR TEMP >100 NOT TO EXCEED 3GM/24HRS For DX-FEVER 2 12/12 Inactiv e 2023 54639 57002 0 By Mouth False MILK OF MAGNESIA ADMINISTER 30 ML BY MOUTH ONCE DAILY NEEDED FOR CONSTIPATION X3 DAYS WITH NO BM. For DX- CONSTIPATION 30ML 12/12 Inactiv e 2023 65879 50002 9 By Mouth False Enema Disposable 19 gram-7 gram/118 mL ADMINISTER ONE ENEMA RECTALLY ONCE DAILY NEEDED FOR CONSTIPATION ON DAY 6 OF NO BM For DX- CONSTIPATION 12/12 Inactiv e 2023 42706 08161 1 Rectal False TUMS EXTRA STR 750MG TAKE (1) TABLET BY MOUTH THREE TIMES DAILY NEEDED FOR INDIGESTION For DX- INDIGESTION 1 12/12 Inactiv e 2023 38481 62568 8 By Mouth False Vitamin D3 25 [...] CONSTIPATION 10 mg 12/12 Inactiv e 2023 90801 08793 1 Rectal False Melatonin 3 mg tablet [generic] 3 mg By Mouth As Needed For DX-INSOMMIA 3 mg 12/12 Inactiv e 2023 85911 51987 8 By Mouth False Hydrocortis one 1 % topical cream [generic] 1 % Topical As Needed For DX- PAIN 1 % 12/12 Inactiv e 2023 79281 73746 1 Topica l False HYDROCORTIS ONE/PARMOXI NE [...] 5-10 50 mg 12/20 Inactiv e 2023 48806 75214 0 Every 4 hours as needed By Mouth False Tylenol 325 mg tablet 325 mg By Mouth Every 4 hours as needed For DX- PAIN PRN FOR MILD PAIN, DO NOT EXCEED 3000MG APAP/24 HOURS 325 mg 12/20 Inactiv e 2023 96755 11041 0 Every 4 hours as needed By Mouth False Baclofen 20 mg tablet [generic] 20 mg By Mouth 4 times a day For MUSCLE SPASMS 20 mg 12/20 Inactiv e 2023 86551 36799 1 4 times a day By Mouth False Calcium citrate 250 mg tablet [generic] Once daily TAKE 4 TABLETS (1000MG) BY MOUTH For SUPPLEMENT 1000 MG 06/26 Inactiv e 2023 29697 42331 6 Once daily By Mouth False Dulcolax (bisacodyl) 10 mg rectal suppository 10 mg Rectal Once daily For CONSTIPATION *MAY HOLD FOR LOOSE STOOLS* 10 mg 2023 Active 2023 14033 07800 1 Once daily Rectal False Gabapentin 300 mg capsule [generic] 300 mg By Mouth 3 times a day For NEUROPATHY 300 mg 2023 Active 2023 87742 98847 4 3 times a day By Mouth False Potassium citrate ER 15 mEq (1,620 mg) tablet,exte nded release [generic] 15 mEq By Mouth 3 times a day For SUPPLEMENT/DI URETIC USE/HYPOCITRA URIA 15 mEq 06/11 Inactiv e 2023 36121 66694 1 3 times a day By Mouth False Potassium chloride ER 20 mEq tablet,exte nded release [generic] 20 mEq By Mouth 3 times a day *DO NOT CRUSH, CHEW OR BREAK* For SUPPLEMENT 20 mEq 12/18 Inactiv e 2023 93551 82153 1 3 times a day By Mouth False Tizanidine 4 mg tablet [generic] 4 mg By Mouth Once daily For MUSCLE SPASMS 4 mg 2023 Active 2023 89731 79020 0 Once daily By Mouth False Tylenol 325 mg tablet 2 tabs By Mouth Every 4 hours as needed For Fever >100 DO NOT EXCEED 3000 MG APAP/24 Hours 2 tabs 12/20 Inactiv e 2023 81585 06834 0 Every 4 hours as needed By Mouth False Dulcolax (bisacodyl) 10 mg rectal suppository Daily as needed For Constipation 1 sup 12/20 Inactiv e 2023 88745 61947 1 Daily as needed Rectal False Fleet Enema 19 gram-7 gram/118 mL 1 Rectal Daily as neededFor Constipation 1 12/20 Inactiv e 2023 52694 20722 6 Daily as needed Rectal False Milk of Magnesia 400 mg/5 mL oral suspension [Magnesium hydroxide] PRN 30ml By Mouth Daily as needed for constipation one time daily if no BM, on day 4 of no BM (PRN refer to instructions) For Constipation For Constipatioin 30ml 12/20 Inactiv e 2023 88193 45312 6 1 time By Mouth False Melatonin 3 mg tablet [generic] 3 mg By Mouth Once daily As Needed For INSOMNIA 3 mg 12/20 Inactiv e 2023 17197 23518 8 Once daily By Mouth False Hydrocortis one 1 % topical cream [generic] 1 % Rectal Four times daily as needed For hemorroid pain 1 % 12/20 Inactiv e 2023 63208 80618 1 Four times daily as needed Rectal False X-STGH ANTACID 750MG CHEW TAKE (1) TABLET BY MOUTH THREE TIMES DAILY NEEDED FOR INDIGESTION 12/20 Inactiv e 2023 90990 44170 4 Three times daily as needed Saline Mist 0.65 % nasal spray aerosol 0.65 % Nares Four times daily as needed For DRYNESS 0.65 % 12/20 Inactiv e 2023 06848 32255 8 Four times daily as needed Nares False Vicks Vaporub 4.7 %-1.2 %-2.6 % topical ointment Apply topically to chest Three times daily as needed For CONGESTION 4.7-1.2 -2.6 12/20 Inactiv e 2023 76696 73647 1 Three times daily as needed Topica l False VITAMIN D3 2000U CAP TAKE ONE (1) CAPSULE BY MOUTH DAILY* DO NOT CRUSH, CHEW OR BREAK* For Supplement 1 capsule 12/19 Inactiv e 2023 66793 18287 0 Once daily By Mouth False Potassium chloride ER 20 mEq tablet,exte nded release(par t/cryst) [generic] TAKE (1) TABLET BY MOUTH THREE TIMES DAILY (MORNING, AFTERNOON, EVENING)*DO NOT CRUSH, CHEW, OR BREAK* For SUPPLEMENT 20 MEQ 06/11 Inactiv e 2023 14022 04463 5 3 times a day By Mouth False Aspirin 81 mg tablet,camron yed release [generic] TAKE ONE (1) TABLET BY MOUTH ONCE DAILY*DO NOT CRUSH, CHEW OR BREAK* For CAD 81 MG 12/22 Inactiv e 2023 11848 94840 0 Once daily By Mouth False Furosemide 20 mg tablet [generic] TAKE 1 AND 1/2 TABLETS (30MG) BY MOUTH ONCE DAILY For CHF 30mg 2023 Active 2023 37441 85014 1 Once daily By Mouth False Polyethylen e glycol 3350 17 gram/dose oral powder [generic] MIX 17 GRAMS (1 CAPFUL) IN 60Z OF LIQUID AND DRINK BY MOUTH ONCE DAILY *HOLD FOR LOOSE STOOLS* For constipation 17 g 2023 Active 2023 63624 21253 3 Once daily By Mouth False Vitamin D3 50 mcg (2,000 unit) capsule Once daily TAKE ONE (1) CAPSULE BY MOUTH DAILY* DO NOT CRUSH, CHEW OR BREAK* For Supplement 1 capsule 02/07 Inactiv e 2023 61345 96619 2 Once daily By Mouth False Fleet Enema 19 gram-7 gram/118 mL 1 Rectal Daily as neededFor Constipation 1 2023 0000 Active 2023 66080 81686 6 Daily as needed Rectal False Tums E-X 300 mg (as calcium carbonate 750 mg) chewable tablet 1 tab By Mouth TAKE (1) TABLET BY MOUTH THREE TIMES DAILY NEEDED FOR INDIGESTION 1 tab 202300 /0000 Active 2023 24201 68861 1 Three times daily as needed By Mouth False Tylenol 325 mg tablet 2 tabs By Mouth Every 4 hours as needed For Fever >100 DO NOT EXCEED 3000 MG APAP/24 Hours 2 tabs 202300 /0000 Active 2023 41080 99110 0 Every 4 hours as needed By Mouth False Vicks Vaporub 4.7 %-1.2 %-2.6 % topical ointment Apply topically to chest Three times daily as needed For CONGESTION topical 202300 Active 2023 50814 57680 1 Three times daily as needed Topica l False Tylenol 325 mg tablet 2 tabs By Mouth Every 4 hours as needed For DX- PAIN PRN FOR MILD PAIN, DO NOT EXCEED 3000MG APAP/24 HOURS 2 tabs 202300 Active 2023 26919 43045 0 Every 4 hours as needed By Mouth False Tramadol 50 mg tablet [generic] 1 tab By Mouth Every 4 hours as needed For DX- PAIN 5-10 1 tab 03/10 Inactiv e 2023 04378 35941 0 Every 4 hours as needed By Mouth False Saline Mist 0.65 % nasal spray aerosol 2 sprays Nares Four times daily as needed For DRYNESS 2 sprays 202300 / Active 2023 03532 66003 8 Four times daily as needed Nares False Dulcolax (bisacodyl) 10 mg rectal suppository Daily as needed For Constipation 1 sup 202300 / Active 2023 03661 01302 1 Daily as needed Rectal False Hydrocortis one-pramoxi ne 1 %-1 % rectal cream [generic] 1 mague Rectal Four times daily as needed For hemorroid pain 1 mague 202300 /0000 Active 2023 63264 59905 4 Four times daily as needed Rectal False Melatonin 3 mg tablet [generic] 1 tab By Mouth At bedtime as needed For INSOMNIA 1 tab 12/24 Inactiv e 2023 58700 53122 8 At bedtime as needed By Mouth False Milk of Magnesia 400 mg/5 mL oral suspension 30ml By Mouth Daily as needed Daily as needed for constipation one time daily if no BM, on day 4 of no BM (PRN refer to instructions) For Constipation For Constipatioin 30ml 2023 Active 2023 14424 70652 2 Daily as needed By Mouth False Baclofen 20 mg tablet [generic] 20 mg By Mouth 4 times a day For MUSCLE SPASMS 20 mg 2023 Active 2023 85450 55703 1 4 times a day By Mouth False Melatonin 3 mg tablet [generic] 1 tab By Mouth At bedtime as needed For INSOMNIA 1 tab 2023 Active 2023 19784 06231 8 At bedtime as needed By Mouth False Bactrim DS 800 mg-160 mg tablet 1 tab By Mouth Twice daily For URINARY TRACT INFECTION, SITE NOT SPECIFIED 1 tab 01/06 Inactiv e 2023 05209 81944 1 Twice daily By Mouth N39.0 False Cefdinir 300 mg capsule [generic] 300 mg By Mouth Twice daily For UTI 300 mg 01/07 Inactiv e 2023 56440 56824 0 Twice daily By Mouth False Cefdinir 300 mg capsule [generic] 300 mg By Mouth Twice daily For UTI 300 mg 01/17 Inactiv e 2023 89518 64640 0 Twice daily By Mouth False Zyrtec 10 mg tablet 10 mg By Mouth Once daily For sinus congestion 10 mg 01/22 Inactiv e 2023 16458 23302 0 Once daily By Mouth False Tobramycin 0.3 %-dexametha sone 0.1 % eye drops,suspe nsion [generic] 0.3-0.1 % Left Eye 4 times a day For eye infection 0.3-0.1 % 02/05 Inactiv e 2023 81665 62261 5 4 times a day Left Eye False Fluconazole 150 mg tablet [generic] 150 mg By Mouth 1 time For yeast infection 150 mg 02/15 Inactiv e 2023 09346 26138 2 1 time By Mouth False Tramadol 50 mg tablet [generic] 1 tab By Mouth Every 4 hours as needed For DX- PAIN 5-10 1 tab 2023 00/00 /0000 Active 2023 08455 59936 0 Every 4 hours as needed By Mouth False Tobramycin 0.3 %-dexametha sone 0.1 % eye drops,suspe nsion [generic] 1 drop Left Eye 4 times a day For Inflammation of left eye 1 drop 05/08 Inactiv e 2023 23920 39629 5 4 times a day Left Eye False Voltaren Arthritis Pain 1 % topical gel 2 gm Topical Twice daily to rigth shoulder for 2 weeks For pain 2 gm 05/08 Inactiv e 2023 42172 04894 1 Twice daily Topica l False Chlorthalid one 25 mg tablet [generic] 12.5mg By Mouth Once daily For HTN 12.5mg 05/06 Inactiv e 2023 72036 73757 0 Once daily By Mouth False Chlorthalid one 25 mg tablet [generic] 12.5mg By Mouth Once daily For HTN 12.5mg 05/07 Inactiv e 2023 70228 42628 0 Once daily By Mouth False Chlorthalid one 25 mg tablet [generic] 05/07 Inactiv e 2023 74722 29845 0 Chlorthalid one 25 mg tablet [generic] 12.5mg By Mouth Once daily For HTN 12.5mg 06/26 Inactiv e 2023 73151 70753 0 Once daily By Mouth False Norvasc 5 mg tablet 5mg By Mouth Once daily, hold medication if systolic is less than 90 For HYPERTENSIVE HEART DISEASE WITHOUT HEART FAILURE 5mg 06/03 Inactiv e 2023 80591 68345 1 Once daily By Mouth I11.9 False Norvasc 5 mg tablet 5mg By Mouth Once daily, hold medication if systolic is less than 90 For HYPERTENSIVE HEART DISEASE WITHOUT HEART FAILURE 5mg 06/03 Inactiv e 2023 47074 91025 1 Once daily By Mouth I11.9 False Norvasc 5 mg tablet 5mg By Mouth Once daily, hold medication if systolic is less than 90 For HYPERTENSIVE HEART DISEASE WITHOUT HEART FAILURE 5mg 06/26 Inactiv e 2023 23229 08728 1 Once daily By Mouth I11.9 False [...] Bladder spasms 10 mg 2023 Active 2023 84494 43828 1 Once daily By Mouth False DISCONTINUE [...] CAD 81 mg 06/14 Inactiv e 2023 26584 87212 9 Once daily By Mouth False Problems Code [...] adjustment of urinary device 07/21/2023 Active Z79.01 assisted (current) use of anticoagulants 07/21 Active N31.9 [...] weight Temperature SpO2 Blood Sugar Pulse Respirations 216 00056 1 254.10 NI 216 04287 2 79.00 mm[Hg] - Sitting 157.00 mm[Hg] - Sitting 73 NI 254.10 NI 36.30 Tympanic 95.00 % 72.00/ min 16.00/min 35526 216 47824 4 98.80 Tympanic 216 27343 2 78.00 mm[Hg] - Sitting 164.00 mm[Hg] - Sitting 32617 217 23899 3 98.20 Tympanic 217 52285 5 73.00 mm[Hg] - Sitting 159.00 mm[Hg] - Sitting 24199 217 73155 9 98.40 Forehead Scan 93348 218 53841 3 97.90 Tympanic 95160 218 32140 5 77.00 mm[Hg] - Sitting 137.00 mm[Hg] - Sitting 57624 219 22495 0 97.70 Tympanic 56708 219 27161 6 97.60 Tympanic 44869 219 93406 4 76.00 mm[Hg] - Sitting 139.00 mm[Hg] - Sitting 15867 219 81255 4 97.80 Forehead Scan 78283 220 47066 9 97.90 Tympanic 41698 220 37189 9 76.00 mm[Hg] - Sitting 138.00 mm[Hg] - Sitting 07809 220 56614 6 98.10 Tympanic 67642 221 30381 5 67.00 mm[Hg] - Sitting 142.00 mm[Hg] - Sitting 68414 221 49077 8 98.20 Tympanic 43871 221 69140 0 98.30 Tympanic 81950 222 57998 7 98.20 Tympanic 00557 222 86415 8 97.90 Tympanic 10908 223 62244 3 98.20 Tympanic 69948 223 69173 3 98.00 Tympanic 87136 224 86487 0 59.00 mm[Hg] - Sitting 111.00 mm[Hg] - Sitting 98.40 Forehead Scan 95.00 % 56.00/ min 18.00/min 22323 224 26083 9 98.20 Forehead Scan 72563 224 55372 3 97.90 Tympanic 07971 225 87218 4 98.20 Tympanic 30176 225 66583 8 97.50 Forehead Scan 68061 228 90330 0 55.00 mm[Hg] - Sitting 118.00 mm[Hg] - Sitting 98.40 Tympanic 69.00/ min 39455 229 33452 8 78.00 mm[Hg] - Sitting 152.00 mm[Hg] - Sitting 80811 230 12029 0 62.00 mm[Hg] - Sitting 122.00 mm[Hg] - Sitting 95536 231 41269 7 72.00 mm[Hg] - Lying Down 140.00 mm[Hg] - Lying Down 24722 101 89127 3 97.70 Forehead Scan 59939 101 81165 1 254.10 NI 69.00/ min 84668 101 26068 9 72.00 mm[Hg] - Sitting 142.00 mm[Hg] - Sitting 97.70 Tympanic 18.00/min 83354 101 25897 3 72.00 mm[Hg] - Lying Down 142.00 mm[Hg] - Lying Down 39602 102 53688 8 68.00 mm[Hg] - Lying Down 152.00 mm[Hg] - Lying Down 40409 103 49435 5 74.00 mm[Hg] - Sitting 158.00 mm[Hg] - Sitting 88548 104 52308 9 78.00 mm[Hg] - Sitting 144.00 mm[Hg] - Sitting 63612 105 94210 5 68.00 mm[Hg] - Sitting 138.00 mm[Hg] - Sitting 17576 106 51296 1 70.00 mm[Hg] - Sitting 138.00 mm[Hg] - Sitting 05851 107 84020 1 67.00 mm[Hg] - Sitting 142.00 mm[Hg] - Sitting 02494 108 47571 0 74.00 mm[Hg] - Sitting 143.00 mm[Hg] - Sitting 41402 110 24984 6 85.00 mm[Hg] - Sitting 160.00 mm[Hg] - Sitting 97.80 Tympanic 93.00 % 76.00/ min 18.00/min 52223 111 41178 1 83.00 mm[Hg] - Sitting 129.00 mm[Hg] - Sitting 98.60 Tympanic 92.00 % 71.00/ min 18.00/min 08882 111 45089 5 60.00 mm[Hg] - Sitting 114.00 mm[Hg] - Sitting 98.70 Tympanic 92.00 % 76.00/ min 18.00/min 72590 112 34212 4 55.00 mm[Hg] - Sitting 125.00 mm[Hg] - Sitting 98.60 Tympanic 91.00 % 68.00/ min 18.00/min 79033 112 76423 9 75.00 mm[Hg] - Sitting 174.00 mm[Hg] - Sitting 97.70 Tympanic 96.00 % 71.00/ min 18.00/min 50604 113 94459 2 77.00 mm[Hg] - Sitting 139.00 mm[Hg] - Sitting 98.10 Tympanic 97.00 % 81.00/ min 18.00/min 23380 113 70090 4 78.00 mm[Hg] - Sitting 153.00 mm[Hg] - Sitting 98.40 Tympanic 93.00 % 69.00/ min 18.00/min 77705 114 87786 5 76.00 mm[Hg] - Sitting 137.00 mm[Hg] - Sitting 98.10 Tympanic 97.00 % 80.00/ min 18.00/min 70419 114 17723 0 76.00 mm[Hg] - Sitting 145.00 mm[Hg] - Sitting 97.90 Tympanic 98.00 % 73.00/ min 18.00/min Immunizations Vaccine Date Status [...]
--- OUTSIDE RECORDS SUMMARY | 2024-07-26 11:10 | External Medical Summary | Continuity Of Care Document ---
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 Clerk Name Role Phone DO Pritchett Amy Primary Care Provider [phone] Allergies Allergy Reaction Start Date End Date Status AMINOGLYCOSIDES Active CIPRO Active GENTAMICIN Active NSAIDS (NON-STEROIDAL ANTI-INFLAMMATORY DRUG) 0 Active IBUPROFEN Active QUINOLONES Active VALIUM Active Medications Medication Instructions Dosage Start Date End Date Status Order Date Drug Code Frequency Route of Admin Diagnosis Code Substitutions Allowed Spikevax 5685-8861(1 2y up)(PF) 50 mcg/0.5 mL intramuscul ar suspension [COVID [id number](12 up)(andu)(P F)] 0.5mL Intramuscular 1 time Monitory 15 Minutes post injection for adverse effects; record site/temp For COVID 19 PREVENTION 0.5mL 01/02 Inactiv e 2023 58163 56939 4 1 time Intram uscula r False [facility] - Nurse initials indicate verificatio n that [id number] vaccine was administere d by [facility] Representat jon 1 Intramuscular 1 time ( Indicate vaccine type) For vaccine 1 05/03 Inactiv e 2023 1 time Intram uscula r False Lisinopril 40 mg tablet [generic] TAKE ONE (1) TABLET BY MOUTH IN THE MORNING. For DX- HTN 1 2023 Active 2023 60165 28230 1 Once daily By Mouth False Tizanidine 2 mg tablet [generic] TAKE ONE (1) TABLET BY MOUTH ONCE DAILY For MUSCLE SPASM 1 2023 Active 2023 55048 97673 0 Once daily By Mouth M62.838 False Tamsulosin 0.4 mg capsule [generic] TAKE (1) CAPSULE BY MOUTH AT BEDTIME For SPASMS 1 2023 Active 2023 37974 39818 0 Once daily By Mouth False Aspirin 81 mg tablet Once daily 1 TABLET BY MOUTH IN THE MORNING For DX- CAD DO NOT CRUSH, CHEW OR BREAK 81 mg 06/12 Inactiv e 2023 Once daily By Mouth False Baclofen 20 mg tablet [generic] 20 mg By Mouth 4 times a day For DX- MUSCLE SPASMS 20 mg 12/12 Inactiv e 2023 16930 93143 1 4 times a day By Mouth False Calcium citrate 250 mg tablet Once daily 4 TABLET BY MOUTH For DX- SUPPLEMENT 250 mg calci 12/12 Inactiv e 2023 Once daily By Mouth False Co Q-10 100 mg capsule 100 mg By Mouth Once daily For DX- SUPPLEMENT 100 mg 06/20 Inactiv e 2023 27170 57926 5 Once daily By Mouth False Furosemide 20 mg tablet [generic] 20 mg By Mouth Once daily For DX-CHF 20 mg 12/12 Inactiv e 2023 38652 09871 0 Once daily By Mouth False Gabapentin 300 mg capsule [generic] 300 mg By Mouth 3 times a day For DX- NEUROPATHY 300 mg 12/12 Inactiv e 2023 47040 96053 4 3 times a day By Mouth False Loratadine 10 mg tablet [generic] 10 mg By Mouth Once daily For DX- ALLERGIES 10 mg 2023 Active 2023 97341 09461 1 Once daily By Mouth False Miralax 17 gram/dose oral powder 17 gram/dose By Mouth IN THE MORNING Mix 1 TABLESPOON IN 8 OZ OF FLUID HOLD FOR LOOSE STOOLS For DX- CONSTIPATION 17 gram/do se 12/12 Inactiv e 2023 78259 69206 0 Once daily By Mouth False Paroxetine 30 mg tablet [generic] 30 mg By Mouth Once daily For DX- DEPRESSION 30 mg 2023 00/00 /0000 Active 2023 20737 68401 3 Once daily By Mouth False Potassium citrate ER 15 mEq (1,620 mg) tablet,exte nded release [generic] 15 mEq By Mouth 3 times a day For DX- SUPPLEMENT/DI URETIC USE/ HYPOCITRAUIRA DO NOT CRUSH 15 mEq 12/12 Inactiv e 2023 74860 77515 1 3 times a day By Mouth [...] For DX- DANDRUFF 12/12 Inactiv e 2023 04853 26308 4 3 times a week Topica l False Acetaminoph en 325 mg tablet [generic] TAKE 2 TABS (650MG) BY MOUTH EVERY 4 HOURS NEEDED FOR TEMP >100 NOT TO EXCEED 3GM/24HRS TAKE 2 TABS (650MG) BY MOUTH EVERY 4 HOURS NEEDED FOR TEMP >100 NOT TO EXCEED 3GM/24HRS For DX-FEVER 2 12/12 Inactiv e 2023 74903 42905 0 By Mouth False MILK OF MAGNESIA ADMINISTER 30 ML BY MOUTH ONCE DAILY NEEDED FOR CONSTIPATION X3 DAYS WITH NO BM. For DX- CONSTIPATION 30ML 12/12 Inactiv e 2023 80892 63989 9 By Mouth False Enema Disposable 19 gram-7 gram/118 mL ADMINISTER ONE ENEMA RECTALLY ONCE DAILY NEEDED FOR CONSTIPATION ON DAY 6 OF NO BM For DX- CONSTIPATION 12/12 Inactiv e 2023 70267 87211 1 Rectal False TUMS EXTRA STR 750MG TAKE (1) TABLET BY MOUTH THREE TIMES DAILY NEEDED FOR INDIGESTION For DX- INDIGESTION 1 12/12 Inactiv e 2023 48385 90565 8 By Mouth False Vitamin D3 25 [...] CONSTIPATION 10 mg 12/12 Inactiv e 2023 22890 53859 1 Rectal False Melatonin 3 mg tablet [generic] 3 mg By Mouth As Needed For DX-INSOMMIA 3 mg 12/12 Inactiv e 2023 89752 22690 8 By Mouth False Hydrocortis one 1 % topical cream [generic] 1 % Topical As Needed For DX- PAIN 1 % 12/12 Inactiv e 2023 14401 09711 1 Topica l False HYDROCORTIS ONE/PARMOXI NE [...] 5-10 50 mg 12/20 Inactiv e 2023 85924 74655 0 Every 4 hours as needed By Mouth False Tylenol 325 mg tablet 325 mg By Mouth Every 4 hours as needed For DX- PAIN PRN FOR MILD PAIN, DO NOT EXCEED 3000MG APAP/24 HOURS 325 mg 12/20 Inactiv e 2023 31449 74216 0 Every 4 hours as needed By Mouth False Baclofen 20 mg tablet [generic] 20 mg By Mouth 4 times a day For MUSCLE SPASMS 20 mg 12/20 Inactiv e 2023 98460 52789 1 4 times a day By Mouth False Calcium citrate 250 mg tablet [generic] Once daily TAKE 4 TABLETS (1000MG) BY MOUTH For SUPPLEMENT 1000 MG 06/26 Inactiv e 2023 36338 07199 6 Once daily By Mouth False Dulcolax (bisacodyl) 10 mg rectal suppository 10 mg Rectal Once daily For CONSTIPATION *MAY HOLD FOR LOOSE STOOLS* 10 mg 2023 Active 2023 37871 87954 1 Once daily Rectal False Gabapentin 300 mg capsule [generic] 300 mg By Mouth 3 times a day For NEUROPATHY 300 mg 2023 Active 2023 80986 04027 4 3 times a day By Mouth False Potassium citrate ER 15 mEq (1,620 mg) tablet,exte nded release [generic] 15 mEq By Mouth 3 times a day For SUPPLEMENT/DI URETIC USE/HYPOCITRA URIA 15 mEq 06/11 Inactiv e 2023 56707 78834 1 3 times a day By Mouth False Potassium chloride ER 20 mEq tablet,exte nded release [generic] 20 mEq By Mouth 3 times a day *DO NOT CRUSH, CHEW OR BREAK* For SUPPLEMENT 20 mEq 12/18 Inactiv e 2023 33409 12044 1 3 times a day By Mouth False Tizanidine 4 mg tablet [generic] 4 mg By Mouth Once daily For MUSCLE SPASMS 4 mg 2023 Active 2023 14397 12432 0 Once daily By Mouth False Tylenol 325 mg tablet 2 tabs By Mouth Every 4 hours as needed For Fever >100 DO NOT EXCEED 3000 MG APAP/24 Hours 2 tabs 12/20 Inactiv e 2023 07327 43137 0 Every 4 hours as needed By Mouth False Dulcolax (bisacodyl) 10 mg rectal suppository Daily as needed For Constipation 1 sup 12/20 Inactiv e 2023 69893 09283 1 Daily as needed Rectal False Problems [...] of urinary device 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 07/21 Active N31.9 [...] weight Temperature SpO2 Blood Sugar Pulse Respirations 50910 216 73203 1 254[place]10 [place] [address] 216 85918 2 79.00 mm[Hg] - Sitting 157.00 mm[Hg] - Sitting 73 NI 254.10 NI 36.30 Tympanic 95.00 % 72.00/ min 16.00/min 37312 216 46069 4 98.80 Tympanic 64726 216 55357 2 78.00 mm[Hg] - Sitting 164.00 mm[Hg] - Sitting 32022 217 32749 3 98.20 Tympanic 43517 217 12340 5 73.00 mm[Hg] - Sitting 159.00 mm[Hg] - Sitting 79204 217 54313 9 98.40 Forehead Scan 09037 218 73003 3 97.90 Tympanic 24338 218 72414 5 77.00 mm[Hg] - Sitting 137.00 mm[Hg] - Sitting 17152 219 55955 0 97.70 Tympanic 22452 219 70456 6 97.60 Tympanic 82013 219 63919 4 76.00 mm[Hg] - Sitting 139.00 mm[Hg] - Sitting 38577 219 59684 4 97.80 Forehead Scan 54880 220 24805 9 97.90 Tympanic 11628 220 13824 9 76.00 mm[Hg] - Sitting 138.00 mm[Hg] - Sitting 52200 220 49414 6 98.10 Tympanic 96933 221 56899 5 67.00 mm[Hg] - Sitting 142.00 mm[Hg] - Sitting 04101 221 80107 8 98.20 Tympanic 86052 221 41414 0 98.30 Tympanic 93882 222 93876 7 98.20 Tympanic 35444 222 24755 8 97.90 Tympanic 01199 223 93417 3 98.20 Tympanic 86737 223 48749 3 98.00 Tympanic 90690 224 54470 0 59.00 mm[Hg] - Sitting 111.00 mm[Hg] - Sitting 98.40 Forehead Scan 95.00 % 56.00/ min 18.00/min 16557 224 02744 9 98.20 Forehead Scan 18207 224 89032 3 97.90 Tympanic 87890 225 29583 4 98.20 Tympanic 09350 225 78390 8 97.50 Forehead Scan 50537 228 34737 0 55.00 mm[Hg] - Sitting 118.00 mm[Hg] - Sitting 98.40 Tympanic 69.00/ min 16521 229 21807 8 78.00 mm[Hg] - Sitting 152.00 mm[Hg] - Sitting 70103 230 84876 0 62.00 mm[Hg] - Sitting 122.00 mm[Hg] - Sitting 43650 231 67143 7 72.00 mm[Hg] - Lying Down 140.00 mm[Hg] - Lying Down 47873 101 79132 3 97.70 Forehead Scan 05172 101 83874 1 254.10 NI 69.00/ min 84080 101 75769 9 72.00 mm[Hg] - Sitting 142.00 mm[Hg] - Sitting 97.70 Tympanic 18.00/min 58321 101 63236 3 72.00 mm[Hg] - Lying Down 142.00 mm[Hg] - Lying Down 86451 102 45379 8 68.00 mm[Hg] - Lying Down 152.00 mm[Hg] - Lying Down 52171 103 44079 5 74.00 mm[Hg] - Sitting 158.00 mm[Hg] - Sitting 66107 104 00032 9 78.00 mm[Hg] - Sitting 144.00 mm[Hg] - Sitting 62063 105 26103 5 68.00 mm[Hg] - Sitting 138.00 mm[Hg] - Sitting 76143 106 20027 1 70.00 mm[Hg] - Sitting 138.00 mm[Hg] - Sitting 35680 107 93849 1 67.00 mm[Hg] - Sitting 142.00 mm[Hg] - Sitting 03907 108 12787 0 74.00 mm[Hg] - Sitting 143.00 mm[Hg] - Sitting 19659 110 09688 6 85.00 mm[Hg] - Sitting 160.00 mm[Hg] - Sitting 97.80 Tympanic 93.00 % 76.00/ min 18.00/min 61738 111 47666 1 83.00 mm[Hg] - Sitting 129.00 mm[Hg] - Sitting 98.60 Tympanic 92.00 % 71.00/ min 18.00/min 32238 111 79762 5 60.00 mm[Hg] - Sitting 114.00 mm[Hg] - Sitting 98.70 Tympanic 92.00 % 76.00/ min 18.00/min 21872 112 46004 4 55.00 mm[Hg] - Sitting 125.00 mm[Hg] - Sitting 98.60 Tympanic 91.00 % 68.00/ min 18.00/min 76923 112 74822 9 75.00 mm[Hg] - Sitting 174.00 mm[Hg] - Sitting 97.70 Tympanic 96.00 % 71.00/ min 18.00/min 16401 113 72417 2 77.00 mm[Hg] - Sitting 139.00 mm[Hg] - Sitting 98.10 Tympanic 97.00 % 81.00/ min 18.00/min 48206 113 16262 4 78.00 mm[Hg] - Sitting 153.00 mm[Hg] - Sitting 98.40 Tympanic 93.00 % 69.00/ min 18.00/min 26001 114 33427 5 76.00 mm[Hg] - Sitting 137.00 mm[Hg] - Sitting 98.10 Tympanic 97.00 % 80.00/ min 18.00/min 61047 114 64673 0 76.00 mm[Hg] - Sitting 145.00 mm[Hg] - Sitting 97.90 Tympanic 98.00 % 73.00/ min 18.00/min 54768 115 80151 3 98.40 Tympanic 71578 115 92821 5 79.00 mm[Hg] - Sitting 143.00 mm[Hg] [...]
--- OUTSIDE RECORDS SUMMARY | 2024-07-26 11:10 | External Medical Summary | Continuity Of Care Document ---
Author Name Unknown Address [address] [place] [address] Organization [facility] () Care Team Providers Care Cytology Technologist Name Role Phone DO Pritchett Amy Primary Care Provider [phone] Allergies Allergy Reaction Start Date End Date Status AMINOGLYCOSIDES Active CIPRO Active GENTAMICIN Active NSAIDS (NON-STEROIDAL ANTI-INFLAMMATORY DRUG) 0 Active IBUPROFEN Active QUINOLONES Active VALIUM Active Medications Medication Instructions Dosage Start Date End Date Status Order Date Drug Code Frequency Route of Admin Diagnosis Code Substitutions Allowed Spikevax [id number](1 2y up)(PF) 50 mcg/0.5 mL intramuscul ar suspension [COVID nmv25-02(12 up)(andu)(P F)] 0.5mL Intramuscular 1 time Monitory 15 Minutes post injection for adverse effects; record site/temp For COVID 19 PREVENTION 0.5mL 01/02 Inactiv e 2023 94763 23635 4 1 time Intram uscula r False [facility] - Nurse initials indicate verificatio n that [id number] vaccine was administere d by [facility] jon 1 Intramuscular 1 time ( Indicate vaccine type) For vaccine 1 05/03 Inactiv e 2023 1 time Intram uscula r False Lisinopril 40 mg tablet [generic] TAKE ONE (1) TABLET BY MOUTH IN THE MORNING. For DX- HTN 1 2023 Active 2023 97410 13714 1 Once daily By Mouth False Tizanidine 2 mg tablet [generic] TAKE ONE (1) TABLET BY MOUTH ONCE DAILY For MUSCLE SPASM 1 2023 Active 2023 48571 46266 0 Once daily By Mouth M62.838 False Tamsulosin 0.4 mg capsule [generic] TAKE (1) CAPSULE BY MOUTH AT BEDTIME For SPASMS 1 2023 Active 2023 43648 47275 0 Once daily By Mouth False Aspirin 81 mg tablet Once daily 1 TABLET BY MOUTH IN THE MORNING For DX- CAD DO NOT CRUSH, CHEW OR BREAK 81 mg 06/12 Inactiv e 2023 Once daily By Mouth False Baclofen 20 mg tablet [generic] 20 mg By Mouth 4 times a day For DX- MUSCLE SPASMS 20 mg 12/12 Inactiv e 2023 90229 96940 1 4 times a day By Mouth False Calcium citrate 250 mg tablet Once daily 4 TABLET BY MOUTH For DX- SUPPLEMENT 250 mg calci 12/12 Inactiv e 2023 Once daily By Mouth False Co Q-10 100 mg capsule 100 mg By Mouth Once daily For DX- SUPPLEMENT 100 mg 06/20 Inactiv e 2023 78022 66801 5 Once daily By Mouth False Furosemide 20 mg tablet [generic] 20 mg By Mouth Once daily For DX-CHF 20 mg 12/12 Inactiv e 2023 88260 57651 0 Once daily By Mouth False Gabapentin 300 mg capsule [generic] 300 mg By Mouth 3 times a day For DX- NEUROPATHY 300 mg 12/12 Inactiv e 2023 00788 47751 4 3 times a day By Mouth False Loratadine 10 mg tablet [generic] 10 mg By Mouth Once daily For DX- ALLERGIES 10 mg 2023 Active 2023 69332 42068 1 Once daily By Mouth False Miralax 17 gram/dose oral powder 17 gram/dose By Mouth IN THE MORNING Mix 1 TABLESPOON IN 8 OZ OF FLUID HOLD FOR LOOSE STOOLS For DX- CONSTIPATION 17 gram/do se 12/12 Inactiv e 2023 45627 70225 0 Once daily By Mouth False Paroxetine 30 mg tablet [generic] 30 mg By Mouth Once daily For DX- DEPRESSION 30 mg 2023 00/00 /0000 Active 2023 28743 70756 3 Once daily By Mouth False Potassium citrate ER 15 mEq (1,620 mg) tablet,exte nded release [generic] 15 mEq By Mouth 3 times a day For DX- SUPPLEMENT/DI URETIC USE/ HYPOCITRAUIRA DO NOT CRUSH 15 mEq 12/12 Inactiv e 2023 11164 18772 1 3 times a day By Mouth [...] For DX- DANDRUFF 12/12 Inactiv e 2023 73429 35249 4 3 times a week Topica l False Acetaminoph en 325 mg tablet [generic] TAKE 2 TABS (650MG) BY MOUTH EVERY 4 HOURS NEEDED FOR TEMP >100 NOT TO EXCEED 3GM/24HRS TAKE 2 TABS (650MG) BY MOUTH EVERY 4 HOURS NEEDED FOR TEMP >100 NOT TO EXCEED 3GM/24HRS For DX-FEVER 2 12/12 Inactiv e 2023 00251 90558 0 By Mouth False MILK OF MAGNESIA ADMINISTER 30 ML BY MOUTH ONCE DAILY NEEDED FOR CONSTIPATION X3 DAYS WITH NO BM. For DX- CONSTIPATION 30ML 12/12 Inactiv e 2023 13229 60683 9 By Mouth False Enema Disposable 19 gram-7 gram/118 mL ADMINISTER ONE ENEMA RECTALLY ONCE DAILY NEEDED FOR CONSTIPATION ON DAY 6 OF NO BM For DX- CONSTIPATION 12/12 Inactiv e 2023 52225 98201 1 Rectal False TUMS EXTRA STR 750MG TAKE (1) TABLET BY MOUTH THREE TIMES DAILY NEEDED FOR INDIGESTION For DX- INDIGESTION 1 12/12 Inactiv e 2023 75343 83636 8 By Mouth False Vitamin D3 25 [...] CONSTIPATION 10 mg 12/12 Inactiv e 2023 66778 68690 1 Rectal False Melatonin 3 mg tablet [generic] 3 mg By Mouth As Needed For DX-INSOMMIA 3 mg 12/12 Inactiv e 2023 88003 57864 8 By Mouth False Hydrocortis one 1 % topical cream [generic] 1 % Topical As Needed For DX- PAIN 1 % 12/12 Inactiv e 2023 13636 55467 1 Topica l False HYDROCORTIS ONE/PARMOXI NE [...] 5-10 50 mg 12/20 Inactiv e 2023 15541 44061 0 Every 4 hours as needed By Mouth False Tylenol 325 mg tablet 325 mg By Mouth Every 4 hours as needed For DX- PAIN PRN FOR MILD PAIN, DO NOT EXCEED 3000MG APAP/24 HOURS 325 mg 12/20 Inactiv e 2023 99990 01464 0 Every 4 hours as needed By Mouth False Baclofen 20 mg tablet [generic] 20 mg By Mouth 4 times a day For MUSCLE SPASMS 20 mg 12/20 Inactiv e 2023 23820 80597 1 4 times a day By Mouth False Calcium citrate 250 mg tablet [generic] Once daily TAKE 4 TABLETS (1000MG) BY MOUTH For SUPPLEMENT 1000 MG 06/26 Inactiv e 2023 40079 32863 6 Once daily By Mouth False Dulcolax (bisacodyl) 10 mg rectal suppository 10 mg Rectal Once daily For CONSTIPATION *MAY HOLD FOR LOOSE STOOLS* 10 mg 2023 Active 2023 62949 43033 1 Once daily Rectal False Gabapentin 300 mg capsule [generic] 300 mg By Mouth 3 times a day For NEUROPATHY 300 mg 2023 Active 2023 03181 99522 4 3 times a day By Mouth False Potassium citrate ER 15 mEq (1,620 mg) tablet,exte nded release [generic] 15 mEq By Mouth 3 times a day For SUPPLEMENT/DI URETIC USE/HYPOCITRA URIA 15 mEq 06/11 Inactiv e 2023 04397 80615 1 3 times a day By Mouth False Potassium chloride ER 20 mEq tablet,exte nded release [generic] 20 mEq By Mouth 3 times a day *DO NOT CRUSH, CHEW OR BREAK* For SUPPLEMENT 20 mEq 12/18 Inactiv e 2023 77125 91682 1 3 times a day By Mouth False Tizanidine 4 mg tablet [generic] 4 mg By Mouth Once daily For MUSCLE SPASMS 4 mg 2023 Active 2023 34127 40610 0 Once daily By Mouth False Tylenol 325 mg tablet 2 tabs By Mouth Every 4 hours as needed For Fever >100 DO NOT EXCEED 3000 MG APAP/24 Hours 2 tabs 12/20 Inactiv e 2023 14986 74203 0 Every 4 hours as needed By Mouth False Dulcolax (bisacodyl) 10 mg rectal suppository Daily as needed For Constipation 1 sup 12/20 Inactiv e 2023 18462 81625 1 Daily as needed Rectal False Fleet Enema 19 gram-7 gram/118 mL 1 Rectal Daily as neededFor Constipation 1 12/20 Inactiv e 2023 76598 08139 6 Daily as needed Rectal False Milk of Magnesia 400 mg/5 mL oral suspension [Magnesium hydroxide] PRN 30ml By Mouth Daily as needed for constipation one time daily if no BM, on day 4 of no BM (PRN refer to instructions) For Constipation For Constipatioin 30ml 12/20 Inactiv e 2023 91729 93261 6 1 time By Mouth False Melatonin 3 mg tablet [generic] 3 mg By Mouth Once daily As Needed For INSOMNIA 3 mg 12/20 Inactiv e 2023 39235 21333 8 Once daily By Mouth False Hydrocortis one 1 % topical cream [generic] 1 % Rectal Four times daily as needed For hemorroid pain 1 % 12/20 Inactiv e 2023 83313 88461 1 Four times daily as needed Rectal False X-STGH ANTACID 750MG CHEW TAKE (1) TABLET BY MOUTH THREE TIMES DAILY NEEDED FOR INDIGESTION 12/20 Inactiv e 2023 69976 21314 4 Three times daily as needed Saline Mist 0.65 % nasal spray aerosol 0.65 % Nares Four times daily as needed For DRYNESS 0.65 % 12/20 Inactiv e 2023 86186 78589 8 Four times daily as needed Nares False Vicks Vaporub 4.7 %-1.2 %-2.6 % topical ointment Apply topically to chest Three times daily as needed For CONGESTION 4.7-1.2 -2.6 12/20 Inactiv e 2023 46902 18411 1 Three times daily as needed Topica l False VITAMIN D3 2000U CAP TAKE ONE (1) CAPSULE BY MOUTH DAILY* DO NOT CRUSH, CHEW OR BREAK* For Supplement 1 capsule 12/19 Inactiv e 2023 11896 07710 0 Once daily By Mouth False Potassium chloride ER 20 mEq tablet,exte nded release(par t/cryst) [generic] TAKE (1) TABLET BY MOUTH THREE TIMES DAILY (MORNING, AFTERNOON, EVENING)*DO NOT CRUSH, CHEW, OR BREAK* For SUPPLEMENT 20 MEQ 06/11 Inactiv e 2023 28462 99850 5 3 times a day By Mouth False Aspirin 81 mg tablet,camron yed release [generic] TAKE ONE (1) TABLET BY MOUTH ONCE DAILY*DO NOT CRUSH, CHEW OR BREAK* For CAD 81 MG 12/22 Inactiv e 2023 61289 35500 0 Once daily By Mouth False Furosemide 20 mg tablet [generic] TAKE 1 AND 1/2 TABLETS (30MG) BY MOUTH ONCE DAILY For CHF 30mg 2023 Active 2023 12552 59928 1 Once daily By Mouth False Polyethylen e glycol 3350 17 gram/dose oral powder [generic] MIX 17 GRAMS (1 CAPFUL) IN 60Z OF LIQUID AND DRINK BY MOUTH ONCE DAILY *HOLD FOR LOOSE STOOLS* For constipation 17 g 2023 Active 2023 94470 99489 3 Once daily By Mouth False Vitamin D3 50 mcg (2,000 unit) capsule Once daily TAKE ONE (1) CAPSULE BY MOUTH DAILY* DO NOT CRUSH, CHEW OR BREAK* For Supplement 1 capsule 02/07 Inactiv e 2023 05103 17502 2 Once daily By Mouth False Fleet Enema 19 gram-7 gram/118 mL 1 Rectal Daily as neededFor Constipation 1 2023 0000 Active 2023 36309 94907 6 Daily as needed Rectal False Tums E-X 300 mg (as calcium carbonate 750 mg) chewable tablet 1 tab By Mouth TAKE (1) TABLET BY MOUTH THREE TIMES DAILY NEEDED FOR INDIGESTION 1 tab 202300 /0000 Active 2023 83496 58839 1 Three times daily as needed By Mouth False Tylenol 325 mg tablet 2 tabs By Mouth Every 4 hours as needed For Fever >100 DO NOT EXCEED 3000 MG APAP/24 Hours 2 tabs 202300 /0000 Active 2023 47209 47067 0 Every 4 hours as needed By Mouth False Vicks Vaporub 4.7 %-1.2 %-2.6 % topical ointment Apply topically to chest Three times daily as needed For CONGESTION topical 202300 Active 2023 96613 30040 1 Three times daily as needed Topica l False Tylenol 325 mg tablet 2 tabs By Mouth Every 4 hours as needed For DX- PAIN PRN FOR MILD PAIN, DO NOT EXCEED 3000MG APAP/24 HOURS 2 tabs 202300 Active 2023 35128 46719 0 Every 4 hours as needed By Mouth False Tramadol 50 mg tablet [generic] 1 tab By Mouth Every 4 hours as needed For DX- PAIN 5-10 1 tab 03/10 Inactiv e 2023 89868 63205 0 Every 4 hours as needed By Mouth False Saline Mist 0.65 % nasal spray aerosol 2 sprays Nares Four times daily as needed For DRYNESS 2 sprays 202300 / Active 2023 31783 85509 8 Four times daily as needed Nares False Dulcolax (bisacodyl) 10 mg rectal suppository Daily as needed For Constipation 1 sup 202300 / Active 2023 36726 46112 1 Daily as needed Rectal False Hydrocortis one-pramoxi ne 1 %-1 % rectal cream [generic] 1 mague Rectal Four times daily as needed For hemorroid pain 1 mague 202300 /0000 Active 2023 46463 18747 4 Four times daily as needed Rectal False Melatonin 3 mg tablet [generic] 1 tab By Mouth At bedtime as needed For INSOMNIA 1 tab 12/24 Inactiv e 2023 98602 29727 8 At bedtime as needed By Mouth False Milk of Magnesia 400 mg/5 mL oral suspension 30ml By Mouth Daily as needed Daily as needed for constipation one time daily if no BM, on day 4 of no BM (PRN refer to instructions) For Constipation For Constipatioin 30ml 2023 Active 2023 23041 22491 2 Daily as needed By Mouth False Baclofen 20 mg tablet [generic] 20 mg By Mouth 4 times a day For MUSCLE SPASMS 20 mg 2023 Active 2023 47930 01327 1 4 times a day By Mouth False Melatonin 3 mg tablet [generic] 1 tab By Mouth At bedtime as needed For INSOMNIA 1 tab 2023 Active 2023 52130 95578 8 At bedtime as needed By Mouth False Bactrim DS 800 mg-160 mg tablet 1 tab By Mouth Twice daily For URINARY TRACT INFECTION, SITE NOT SPECIFIED 1 tab 01/06 Inactiv e 2023 93389 82452 1 Twice daily By Mouth N39.0 False Cefdinir 300 mg capsule [generic] 300 mg By Mouth Twice daily For UTI 300 mg 01/07 Inactiv e 2023 73365 88307 0 Twice daily By Mouth False Cefdinir 300 mg capsule [generic] 300 mg By Mouth Twice daily For UTI 300 mg 01/17 Inactiv e 2023 51677 48093 0 Twice daily By Mouth False Zyrtec 10 mg tablet 10 mg By Mouth Once daily For sinus congestion 10 mg 01/22 Inactiv e 2023 62091 36332 0 Once daily By Mouth False Tobramycin 0.3 %-dexametha sone 0.1 % eye drops,suspe nsion [generic] 0.3-0.1 % Left Eye 4 times a day For eye infection 0.3-0.1 % 02/05 Inactiv e 2023 01445 31625 5 4 times a day Left Eye False Fluconazole 150 mg tablet [generic] 150 mg By Mouth 1 time For yeast infection 150 mg 02/15 Inactiv e 2023 82682 15261 2 1 time By Mouth False Tramadol 50 mg tablet [generic] 1 tab By Mouth Every 4 hours as needed For DX- PAIN 5-10 1 tab 2023 00/00 /0000 Active 2023 45550 96245 0 Every 4 hours as needed By Mouth False Tobramycin 0.3 %-dexametha sone 0.1 % eye drops,suspe nsion [generic] 1 drop Left Eye 4 times a day For Inflammation of left eye 1 drop 05/08 Inactiv e 2023 95750 29886 5 4 times a day Left Eye False Voltaren Arthritis Pain 1 % topical gel 2 gm Topical Twice daily to rigth shoulder for 2 weeks For pain 2 gm 05/08 Inactiv e 2023 63871 28274 1 Twice daily Topica l False Chlorthalid one 25 mg tablet [generic] 12.5mg By Mouth Once daily For HTN 12.5mg 05/06 Inactiv e 2023 15788 73770 0 Once daily By Mouth False Chlorthalid one 25 mg tablet [generic] 12.5mg By Mouth Once daily For HTN 12.5mg 05/07 Inactiv e 2023 99404 57378 0 Once daily By Mouth False Chlorthalid one 25 mg tablet [generic] 05/07 Inactiv e 2023 68166 28503 0 Chlorthalid one 25 mg tablet [generic] 12.5mg By Mouth Once daily For HTN 12.5mg 06/26 Inactiv e 2023 87294 72349 0 Once daily By Mouth False Norvasc 5 mg tablet 5mg By Mouth Once daily, hold medication if systolic is less than 90 For HYPERTENSIVE HEART DISEASE WITHOUT HEART FAILURE 5mg 06/03 Inactiv e 2023 54713 64717 1 Once daily By Mouth I11.9 False Norvasc 5 mg tablet 5mg By Mouth Once daily, hold medication if systolic is less than 90 For HYPERTENSIVE HEART DISEASE WITHOUT HEART FAILURE 5mg 06/03 Inactiv e 2023 40034 02346 1 Once daily By Mouth I11.9 False Norvasc 5 mg tablet 5mg By Mouth Once daily, hold medication if systolic is less than 90 For HYPERTENSIVE HEART DISEASE WITHOUT HEART FAILURE 5mg 06/26 Inactiv e 2023 02003 39355 1 Once daily By Mouth I11.9 False [...] 10 mg 2023 00/00 /0000 Active 2023 04175 65287 1 Once daily By Mouth False DISCONTINUE [...] CAD 81 mg 06/14 Inactiv e 2023 84231 71172 9 Once daily By Mouth False Aspirin 81 mg tablet,camron yed release [generic] 06/14 Inactiv e 2023 62628 45739 9 Aspirin 81 mg tablet,camron yed release [generic] 81 mg By Mouth Once daily Do not crush, chew, or break For CAD 81 mg 06/154 Inactiv e 2023 02687 15944 9 Once daily By Mouth False Cefpodoxime 200 mg tablet [generic] 200mg By Mouth Twice daily For UTI 200mg 07/04 Inactiv e 2023 71122 76047 0 Twice daily By Mouth False Calcium citrate 250 mg tablet [generic] 06/26 Inactiv e 2023 19962 54180 6 Calcium citrate 250 mg tablet [generic] Once daily TAKE 4 TABLETS (1000MG) BY MOUTH For SUPPLEMENT 500 MG 2023 Active 2023 60328 05863 6 Once daily By Mouth False Norvasc 5 mg tablet 7.5 mg By Mouth Once daily Hold medication if SBP <90 For HYPERTENSIVE HEART DISEASE WITHOUT HEART FAILURE 7.5 mg 06/30 Inactiv e 2023 40459 67776 1 Once daily By Mouth I11.9 False Norvasc 5 mg tablet 7.5 mg By Mouth Once daily Hold medication if SBP <90 For HYPERTENSIVE HEART DISEASE WITHOUT HEART FAILURE 7.5 mg 07/06 Inactiv e 2023 90210 71531 1 Once daily By Mouth I11.9 False Simethicone 125 mg capsule [generic] 2 capule By Mouth Twice daily as needed For bloating/gas pain 2 capule 2023 Active 2023 07202 28381 0 Twice daily as needed By Mouth False Cepacol Sore Throat (benzocaine -menthol) 15 mg-2.6 mg lozenges 2 lozenges By Mouth Every 6 hours as needed For sore throat 2 lozenge s 2023 Active 2023 03140 44441 6 Every 6 hours as needed By Mouth False Cefepime 1 gram solution for injection [generic] 1g Intramuscular Every 12 hours 1g intramuscular ly ever 12 hours For UTI 1g 07/06 Inactiv e 2023 64260 59451 4 Every 12 hours Intram uscula r False Cefepime 1 gram solution for injection [generic] 07/06 Inactiv e 2023 01813 83288 4 Cefepime 1 gram solution for injection [generic] 1g Intramuscular Every 12 hours 1g intramuscular ly ever 12 hours For UTI Reconstitute with 2.4 ML of NSS. 1g 07/08 Inactiv e 2023 03287 56698 4 Every 12 hours Intram uscula r False Norvasc 5 mg tablet 07/06 Inactiv e 2023 54891 97641 1 I11.9 Norvasc 5 mg tablet 7.5 mg By Mouth Once daily Hold medication if SBP <90 For HYPERTENSIVE HEART DISEASE WITHOUT HEART FAILURE 7.5 mg 07/18 Inactiv e 2023 05211 33142 1 Once daily By Mouth I11.9 False Cefepime 1 gram solution for injection [generic] 07/08 Inactiv e 2023 87165 85386 4 Cefepime 1 gram solution for injection [generic] 1g Intramuscular Every 12 hours 1g intramuscular ly ever 12 hours For UTI Reconstitute with 2.4 ML of NSS. 1g 07/08 Inactiv e 2023 38133 85259 4 Every 12 hours Intram uscula r False Cefepime 1 gram solution for injection [generic] 07/08 Inactiv e 2023 81524 98642 4 Cefepime 1 gram solution for injection [generic] 1g Intramuscular Every 12 hours 1g intramuscular ly ever 12 hours For UTI Reconstitute with 2.4 ML of NSS. 1g 07/11 Inactiv e 2023 71262 07643 4 Every 12 hours Intram uscula r False Fleet Enema 19 gram-7 gram/118 mL 1 Rectal 1 time For constipation 1 07/16 Inactiv e 2024 70174 30183 6 1 time Rectal False Fleet Enema 19 gram-7 gram/118 mL 1 Rectal 1 time For constipation 1 07/17 Inactiv e 2024 90713 46619 6 1 time Rectal False Norvasc 5 mg tablet 7.5 mg By Mouth Once daily For HYPERTENSIVE HEART DISEASE WITHOUT HEART FAILURE 7.5 mg 2024 00/00 /0000 Active 2024 52785 55097 1 Once daily By Mouth I11.9 False Potassium chloride ER 20 mEq tablet,exte nded release(par t/cryst) [generic] 40 mEq By Mouth 1 time For low potassium prior to surgery 40 mEq 07/18 Inactiv e 2024 15915 90185 1 1 time By Mouth False Potassium chloride ER 20 mEq tablet,exte nded release(par t/cryst) [generic] 40 mEq By Mouth 1 time For low potassium prior to surgery 40 mEq 07/18 Inactiv e 2024 82629 52177 1 1 time By Mouth False Potassium chloride ER 20 mEq tablet,exte nded release(par t/cryst) [generic] 40 mEq By Mouth 1 time For low potassium 40 mEq 07/18 Inactiv e 2024 50905 78352 1 1 time By Mouth False Potassium chloride ER 20 mEq tablet,exte nded release(par t/cryst) [generic] 40 mEq By Mouth 1 time For low potassium 40 mEq 07/18 Inactiv e 2024 06220 56343 1 1 time By Mouth False Potassium chloride ER 20 mEq tablet,exte nded release [generic] 2 By Mouth 1 time For low potassium 2 07/19 Inactiv e 2024 36428 17120 1 1 time By Mouth False Potassium chloride ER 20 mEq tablet,exte nded release [generic] 2 capsules capsules By Mouth 1 time Please send capsule (2 capsules) For low potassium 2 capsule s 07/20 Inactiv e 2024 56594 08800 1 1 time By Mouth False Potassium chloride ER 20 mEq tablet,exte nded release(par t/cryst) [generic] TAKE (2) TABLETS (40MEQ) BY MOUTH X1 DOSE 07/20 Inactiv e 2024 79178 62708 5 Cefepime 1 gram solution for injection [generic] 1 gram Intramuscular Every 12 hours For Urinary Tract Infection 1 gram 07/21 Inactiv e 2024 66436 81149 4 Every 12 hours Intram uscula r False Cefepime 1 gram solution for injection [generic] 07/21 Inactiv e 2024 56245 00771 4 Cefepime 1 gram solution for injection [generic] 1 gram Intramuscular Every 12 hours For Urinary Tract Infection 1 gram 07/22 Inactiv e 2024 63659 72427 4 Every 12 hours Intram uscula r False Cefepime 1 gram solution for injection [generic] 1 gram Intramuscular Every 12 hours For Urinary Tract Infection 1 gram 07/24 Inactiv e 2024 84816 79262 4 Every 12 hours Intram uscula r False Klor-Con 10 mEq tablet,exte nded release Klor- Con GIVE 2 Capsules daily Do NOT SEND Tablets Requesting Micro K 10 meq capsules For hyponatremia 2 capsule s 2024 00/00 /0000 Active 2024 51378 43905 1 Once daily By Mouth False Cefepime 1 gram solution for injection [generic] 1 gram Intramuscular Every 12 hours For Urinary Tract Infection 1 gram 2024 00/00 /0000 Active 2024 90187 57681 4 Every 12 hours Intram uscula r False Nystatin 100,000 unit/gram topical cream [generic] 100,000 unit Topical As Needed For DX- EXCORIATION 100,000 unit 12/12 Inactiv e 2023 54210 29109 5 Topica l False Vicks Vaporub 4.7 %-1.2 %-2.6 % topical ointment 4.7-1.2-2.6 Topical 3 times a day As Needed For DX- CONGESTION 4.7-1.2 -2.6 12/12 Inactiv e 2023 73614 72589 1 3 times a day Topica l False Ketoconazol e 2 % shampoo [generic] APPLY SHAMPOO TOPICALLY TO SCALP DURING HAIR WASHINGDX: ELVIA DERM OF SCALP For DX- ELVIA DERM OF SCALP 12/12 Inactiv e 2023 18592 67593 4 Topica l False THERA SILICONE SKIN GUARD Topical Twice daily 1 APPLICATION TOPICALLY IN THE MORNING AND AT BEDTIME TO SCROTUM For DX- PREVENTION 2023 Active 2023 Twice daily Topica l False Selenium sulfide 2.5 % lotion [generic] 2.5 % Topical EVERY MONDAY, MONDAY AND MONDAY AFTER SHOWER For DANDRUFF 2.5 % 2023 Active 2023 80988 45323 4 3 times a week Topica l False Nystatin (bulk) 100 million unit powder [generic] 100 million Topical Twice daily as needed For EXOCORATION 100 million 12/20 Inactiv e 2023 61394 03484 1 Twice daily as needed Topica l False Ketoconazol e 2 % shampoo [generic] Once daily APPLY SHAMPOO TOPICALLY TO SCALP DURING HAIR WASHING ON SHOWER DAYS- , , MON For ELVIA DERM OF SCAP 2 % 2023 Active 2023 47856 59500 4 Once daily Topica l False Nystatin 100,000 unit/gram topical cream [generic] 1 mague Topical Twice daily as needed For EXOCORATION 1 mague 06/05 Inactiv e 2023 28191 56741 5 Twice daily as needed Topica l False Nystatin 100,000 unit/gram topical powder [generic] 100,000 unit Topical Twice daily to scrotum with AM and PM care For Scrotal excoriation 100,000 unit 06/05 Inactiv e 2023 26873 22768 5 Twice daily Topica l False Problems [...] adjustment of urinary device 07/21/2023 Active Z79.01 correction (current) use of anticoagulants 07/21 Active N31.9 [...] weight Temperature SpO2 Blood Sugar Pulse Respirations 62271 216 40117 1 254.10 NI 49876 216 32809 2 79.00 mm[Hg] - Sitting 157.00 mm[Hg] - Sitting 73 NI 254.10 NI 36.30 Tympanic 95.00 % 72.00/ min 16.00/min 93897 216 79823 4 98.80 Tympanic 02715 216 25822 2 78.00 mm[Hg] - Sitting 164.00 mm[Hg] - Sitting 71137 217 04090 3 98.20 Tympanic 55246 217 44698 5 73.00 mm[Hg] - Sitting 159.00 mm[Hg] - Sitting 21880 217 29877 9 98.40 Forehead Scan 40265 218 13420 3 97.90 Tympanic 27157 218 11566 5 77.00 mm[Hg] - Sitting 137.00 mm[Hg] - Sitting 76756 219 78440 0 97.70 Tympanic 01415 219 43075 6 97.60 Tympanic 40615 219 49666 4 76.00 mm[Hg] - Sitting 139.00 mm[Hg] - Sitting 25103 219 28096 4 97.80 Forehead Scan 97320 220 45597 9 97.90 Tympanic 27857 220 92964 9 76.00 mm[Hg] - Sitting 138.00 mm[Hg] - Sitting 08002 220 63679 6 98.10 Tympanic 68158 221 37034 5 67.00 mm[Hg] - Sitting 142.00 mm[Hg] - Sitting 41804 221 60572 8 98.20 Tympanic 52445 221 35757 0 98.30 Tympanic 51354 222 20019 7 98.20 Tympanic 60115 222 28353 8 97.90 Tympanic 26974 223 69942 3 98.20 Tympanic 41116 223 70573 3 98.00 Tympanic 05831 224 73615 0 59.00 mm[Hg] - Sitting 111.00 mm[Hg] - Sitting 98.40 Forehead Scan 95.00 % 56.00/ min 18.00/min 09483 224 39239 9 98.20 Forehead Scan 79590 224 43715 3 97.90 Tympanic 63414 225 00272 4 98.20 Tympanic 57912 225 64503 8 97.50 Forehead Scan 89652 228 19939 0 55.00 mm[Hg] - Sitting 118.00 mm[Hg] - Sitting 98.40 Tympanic 69.00/ min 76550 229 51027 8 78.00 mm[Hg] - Sitting 152.00 mm[Hg] - Sitting 23992 230 99747 0 62.00 mm[Hg] - Sitting 122.00 mm[Hg] - Sitting 43742 231 09643 7 72.00 mm[Hg] - Lying Down 140.00 mm[Hg] - Lying Down 42981 101 18615 3 97.70 Forehead Scan 25907 101 15311 1 254.10 NI 69.00/ min 60439 101 18308 9 72.00 mm[Hg] - Sitting 142.00 mm[Hg] - Sitting 97.70 Tympanic 18.00/min 34512 101 95144 3 72.00 mm[Hg] - Lying Down 142.00 mm[Hg] - Lying Down 59519 102 98181 8 68.00 mm[Hg] - Lying Down 152.00 mm[Hg] - Lying Down 76210 103 34668 5 74.00 mm[Hg] - Sitting 158.00 mm[Hg] - Sitting 48966 104 36611 9 78.00 mm[Hg] - Sitting 144.00 mm[Hg] - Sitting 53259 105 55531 5 68.00 mm[Hg] - Sitting 138.00 mm[Hg] - Sitting 52761 106 17377 1 70.00 mm[Hg] - Sitting 138.00 mm[Hg] - Sitting 98637 107 42687 1 67.00 mm[Hg] - Sitting 142.00 mm[Hg] - Sitting 79385 108 65627 0 74.00 mm[Hg] - Sitting 143.00 mm[Hg] - Sitting [id number] 110 [id number] 6 85.00 mm[Hg] - Sitting 160.00 mm[Hg] - Sitting 97.80 Tympanic 93.00 % 76.00/ min 18.00/min 55410 111 44335 1 83.00 mm[Hg] - Sitting 129.00 mm[Hg] - Sitting 98.60 Tympanic 92.00 % 71.00/ min 18.00/min 31362 111 45121 5 60.00 mm[Hg] - Sitting 114.00 mm[Hg] - Sitting 98.70 Tympanic 92.00 % 76.00/ min 18.00/min 62894 112 55703 4 55.00 mm[Hg] - Sitting 125.00 mm[Hg] - Sitting 98.60 Tympanic 91.00 % 68.00/ min 18.00/min 28231 112 27830 9 75.00 mm[Hg] - Sitting 174.00 mm[Hg] - Sitting 97.70 Tympanic 96.00 % 71.00/ min 18.00/min 98875 113 58694 2 77.00 mm[Hg] - Sitting 139.00 mm[Hg] - Sitting 98.10 Tympanic 97.00 % 81.00/ min 18.00/min 71441 113 83542 4 78.00 mm[Hg] - Sitting 153.00 mm[Hg] - Sitting 98.40 Tympanic 93.00 % 69.00/ min 18.00/min 19307 114 60202 5 76.00 mm[Hg] - Sitting 137.00 mm[Hg] - Sitting 98.10 Tympanic 97.00 % 80.00/ min 18.00/min 56769 114 09027 0 76.00 mm[Hg] - Sitting 145.00 mm[Hg] - Sitting 97.90 Tympanic 98.00 % 73.00/ min 18.00/min 92677 115 46088 3 98.40 Tympanic 47521 115 98946 5 79.00 mm[Hg] - Sitting 143.00 mm[Hg] [...]
--- OUTSIDE RECORDS SUMMARY | 2024-07-26 11:10 | External Medical Summary | Continuity Of Care Document ---
Author Name Unknown Address [address] [place] [address] Organization [facility] () Care Team Providers Care Command And Control Specialist Name Role Phone DO Pritchett Amy Primary Care Provider [phone] Allergies Allergy Reaction Start Date End Date Status AMINOGLYCOSIDES Active CIPRO Active GENTAMICIN Active NSAIDS (NON-STEROIDAL ANTI-INFLAMMATORY DRUG) 0 Active IBUPROFEN Active QUINOLONES Active VALIUM Active Medications Medication Instructions Dosage Start Date End Date Status Order Date Drug Code Frequency Route of Admin Diagnosis Code Substitutions Allowed Spikevax [id number](1 2y up)(PF) 50 mcg/0.5 mL intramuscul ar suspension [COVID les32-25(12 up)(andu)(P F)] 0.5mL Intramuscular 1 time Monitory 15 Minutes post injection for adverse effects; record site/temp For COVID 19 PREVENTION 0.5mL 01/02 Inactiv e 2023 89155 27097 4 1 time Intram uscula r False [facility] - Nurse initials indicate verificatio n that [id number] vaccine was administere d by [facility] Representat jon 1 Intramuscular 1 time ( Indicate vaccine type) For vaccine 1 05/03 Inactiv e 2023 1 time Intram uscula r False Lisinopril 40 mg tablet [generic] TAKE ONE (1) TABLET BY MOUTH IN THE MORNING. For DX- HTN 1 2023 Active 2023 93330 77947 1 Once daily By Mouth False Tizanidine 2 mg tablet [generic] TAKE ONE (1) TABLET BY MOUTH ONCE DAILY For MUSCLE SPASM 1 2023 Active 2023 68981 64067 0 Once daily By Mouth M62.838 False Tamsulosin 0.4 mg capsule [generic] TAKE (1) CAPSULE BY MOUTH AT BEDTIME For SPASMS 1 2023 Active 2023 26686 91498 0 Once daily By Mouth False Aspirin 81 mg tablet Once daily 1 TABLET BY MOUTH IN THE MORNING For DX- CAD DO NOT CRUSH, CHEW OR BREAK 81 mg 06/12 Inactiv e 2023 Once daily By Mouth False Baclofen 20 mg tablet [generic] 20 mg By Mouth 4 times a day For DX- MUSCLE SPASMS 20 mg 12/12 Inactiv e 2023 04314 61091 1 4 times a day By Mouth False Calcium citrate 250 mg tablet Once daily 4 TABLET BY MOUTH For DX- SUPPLEMENT 250 mg calci 12/12 Inactiv e 2023 Once daily By Mouth False Co Q-10 100 mg capsule 100 mg By Mouth Once daily For DX- SUPPLEMENT 100 mg 06/20 Inactiv e 2023 38737 86376 5 Once daily By Mouth False Furosemide 20 mg tablet [generic] 20 mg By Mouth Once daily For DX-CHF 20 mg 12/12 Inactiv e 2023 11983 64389 0 Once daily By Mouth False Gabapentin 300 mg capsule [generic] 300 mg By Mouth 3 times a day For DX- NEUROPATHY 300 mg 12/12 Inactiv e 2023 28239 29660 4 3 times a day By Mouth False Loratadine 10 mg tablet [generic] 10 mg By Mouth Once daily For DX- ALLERGIES 10 mg 2023 Active 2023 32606 11031 1 Once daily By Mouth False Miralax 17 gram/dose oral powder 17 gram/dose By Mouth IN THE MORNING Mix 1 TABLESPOON IN 8 OZ OF FLUID HOLD FOR LOOSE STOOLS For DX- CONSTIPATION 17 gram/do se 12/12 Inactiv e 2023 07538 16927 0 Once daily By Mouth False Paroxetine 30 mg tablet [generic] 30 mg By Mouth Once daily For DX- DEPRESSION 30 mg 2023 00/00 /0000 Active 2023 53912 89506 3 Once daily By Mouth False Potassium citrate ER 15 mEq (1,620 mg) tablet,exte nded release [generic] 15 mEq By Mouth 3 times a day For DX- SUPPLEMENT/DI URETIC USE/ HYPOCITRAUIRA DO NOT CRUSH 15 mEq 12/12 Inactiv e 2023 09598 05167 1 3 times a day By Mouth [...] For DX- DANDRUFF 12/12 Inactiv e 2023 29448 18623 4 3 times a week Topica l False Acetaminoph en 325 mg tablet [generic] TAKE 2 TABS (650MG) BY MOUTH EVERY 4 HOURS NEEDED FOR TEMP >100 NOT TO EXCEED 3GM/24HRS TAKE 2 TABS (650MG) BY MOUTH EVERY 4 HOURS NEEDED FOR TEMP >100 NOT TO EXCEED 3GM/24HRS For DX-FEVER 2 12/12 Inactiv e 2023 23944 62006 0 By Mouth False MILK OF MAGNESIA ADMINISTER 30 ML BY MOUTH ONCE DAILY NEEDED FOR CONSTIPATION X3 DAYS WITH NO BM. For DX- CONSTIPATION 30ML 12/12 Inactiv e 2023 57209 20160 9 By Mouth False Enema Disposable 19 gram-7 gram/118 mL ADMINISTER ONE ENEMA RECTALLY ONCE DAILY NEEDED FOR CONSTIPATION ON DAY 6 OF NO BM For DX- CONSTIPATION 12/12 Inactiv e 2023 79116 67356 1 Rectal False TUMS EXTRA STR 750MG TAKE (1) TABLET BY MOUTH THREE TIMES DAILY NEEDED FOR INDIGESTION For DX- INDIGESTION 1 12/12 Inactiv e 2023 65894 65251 8 By Mouth False Vitamin D3 25 [...] CONSTIPATION 10 mg 12/12 Inactiv e 2023 44217 08252 1 Rectal False Melatonin 3 mg tablet [generic] 3 mg By Mouth As Needed For DX-INSOMMIA 3 mg 12/12 Inactiv e 2023 09687 61729 8 By Mouth False Hydrocortis one 1 % topical cream [generic] 1 % Topical As Needed For DX- PAIN 1 % 12/12 Inactiv e 2023 35576 24861 1 Topica l False HYDROCORTIS ONE/PARMOXI NE [...] 5-10 50 mg 12/20 Inactiv e 2023 79080 10360 0 Every 4 hours as needed By Mouth False Tylenol 325 mg tablet 325 mg By Mouth Every 4 hours as needed For DX- PAIN PRN FOR MILD PAIN, DO NOT EXCEED 3000MG APAP/24 HOURS 325 mg 12/20 Inactiv e 2023 27881 61203 0 Every 4 hours as needed By Mouth False Baclofen 20 mg tablet [generic] 20 mg By Mouth 4 times a day For MUSCLE SPASMS 20 mg 12/20 Inactiv e 2023 38168 82991 1 4 times a day By Mouth False Calcium citrate 250 mg tablet [generic] Once daily TAKE 4 TABLETS (1000MG) BY MOUTH For SUPPLEMENT 1000 MG 06/26 Inactiv e 2023 70264 53152 6 Once daily By Mouth False Dulcolax (bisacodyl) 10 mg rectal suppository 10 mg Rectal Once daily For CONSTIPATION *MAY HOLD FOR LOOSE STOOLS* 10 mg 2023 Active 2023 35066 60402 1 Once daily Rectal False Gabapentin 300 mg capsule [generic] 300 mg By Mouth 3 times a day For NEUROPATHY 300 mg 2023 Active 2023 52134 12878 4 3 times a day By Mouth False Potassium citrate ER 15 mEq (1,620 mg) tablet,exte nded release [generic] 15 mEq By Mouth 3 times a day For SUPPLEMENT/DI URETIC USE/HYPOCITRA URIA 15 mEq 06/11 Inactiv e 2023 42842 47867 1 3 times a day By Mouth False Potassium chloride ER 20 mEq tablet,exte nded release [generic] 20 mEq By Mouth 3 times a day *DO NOT CRUSH, CHEW OR BREAK* For SUPPLEMENT 20 mEq 12/18 Inactiv e 2023 55029 12337 1 3 times a day By Mouth False Tizanidine 4 mg tablet [generic] 4 mg By Mouth Once daily For MUSCLE SPASMS 4 mg 2023 Active 2023 16470 95126 0 Once daily By Mouth False Tylenol 325 mg tablet 2 tabs By Mouth Every 4 hours as needed For Fever >100 DO NOT EXCEED 3000 MG APAP/24 Hours 2 tabs 12/20 Inactiv e 2023 82882 84457 0 Every 4 hours as needed By Mouth False Dulcolax (bisacodyl) 10 mg rectal suppository Daily as needed For Constipation 1 sup 12/20 Inactiv e 2023 67140 00761 1 Daily as needed Rectal False Fleet Enema 19 gram-7 gram/118 mL 1 Rectal Daily as neededFor Constipation 1 12/20 Inactiv e 2023 58002 95078 6 Daily as needed Rectal False Milk of Magnesia 400 mg/5 mL oral suspension [Magnesium hydroxide] PRN 30ml By Mouth Daily as needed for constipation one time daily if no BM, on day 4 of no BM (PRN refer to instructions) For Constipation For Constipatioin 30ml 12/20 Inactiv e 2023 72060 97740 6 1 time By Mouth False Melatonin 3 mg tablet [generic] 3 mg By Mouth Once daily As Needed For INSOMNIA 3 mg 12/20 Inactiv e 2023 74367 38714 8 Once daily By Mouth False Hydrocortis one 1 % topical cream [generic] 1 % Rectal Four times daily as needed For hemorroid pain 1 % 12/20 Inactiv e 2023 12118 76413 1 Four times daily as needed Rectal False X-STGH ANTACID 750MG CHEW TAKE (1) TABLET BY MOUTH THREE TIMES DAILY NEEDED FOR INDIGESTION 12/20 Inactiv e 2023 84721 87830 4 Three times daily as needed Saline Mist 0.65 % nasal spray aerosol 0.65 % Nares Four times daily as needed For DRYNESS 0.65 % 12/20 Inactiv e 2023 14232 54660 8 Four times daily as needed Nares False Vicks Vaporub 4.7 %-1.2 %-2.6 % topical ointment Apply topically to chest Three times daily as needed For CONGESTION 4.7-1.2 -2.6 12/20 Inactiv e 2023 09069 90136 1 Three times daily as needed Topica l False VITAMIN D3 2000U CAP TAKE ONE (1) CAPSULE BY MOUTH DAILY* DO NOT CRUSH, CHEW OR BREAK* For Supplement 1 capsule 12/19 Inactiv e 2023 13038 04734 0 Once daily By Mouth False Potassium chloride ER 20 mEq tablet,exte nded release(par t/cryst) [generic] TAKE (1) TABLET BY MOUTH THREE TIMES DAILY (MORNING, AFTERNOON, EVENING)*DO NOT CRUSH, CHEW, OR BREAK* For SUPPLEMENT 20 MEQ 06/11 Inactiv e 2023 42321 53107 5 3 times a day By Mouth False Aspirin 81 mg tablet,camron yed release [generic] TAKE ONE (1) TABLET BY MOUTH ONCE DAILY*DO NOT CRUSH, CHEW OR BREAK* For CAD 81 MG 12/22 Inactiv e 2023 30040 15884 0 Once daily By Mouth False Furosemide 20 mg tablet [generic] TAKE 1 AND 1/2 TABLETS (30MG) BY MOUTH ONCE DAILY For CHF 30mg 2023 Active 2023 87226 67650 1 Once daily By Mouth False Polyethylen e glycol 3350 17 gram/dose oral powder [generic] MIX 17 GRAMS (1 CAPFUL) IN 60Z OF LIQUID AND DRINK BY MOUTH ONCE DAILY *HOLD FOR LOOSE STOOLS* For constipation 17 g 2023 Active 2023 16107 45940 3 Once daily By Mouth False Vitamin D3 50 mcg (2,000 unit) capsule Once daily TAKE ONE (1) CAPSULE BY MOUTH DAILY* DO NOT CRUSH, CHEW OR BREAK* For Supplement 1 capsule 02/07 Inactiv e 2023 49783 20571 2 Once daily By Mouth False Fleet Enema 19 gram-7 gram/118 mL 1 Rectal Daily as neededFor Constipation 1 2023 0000 Active 2023 23557 00709 6 Daily as needed Rectal False Tums E-X 300 mg (as calcium carbonate 750 mg) chewable tablet 1 tab By Mouth TAKE (1) TABLET BY MOUTH THREE TIMES DAILY NEEDED FOR INDIGESTION 1 tab 202300 /0000 Active 2023 65694 70086 1 Three times daily as needed By Mouth False Tylenol 325 mg tablet 2 tabs By Mouth Every 4 hours as needed For Fever >100 DO NOT EXCEED 3000 MG APAP/24 Hours 2 tabs 202300 /0000 Active 2023 62912 97353 0 Every 4 hours as needed By Mouth False Vicks Vaporub 4.7 %-1.2 %-2.6 % topical ointment Apply topically to chest Three times daily as needed For CONGESTION topical 202300 Active 2023 56830 94453 1 Three times daily as needed Topica l False Tylenol 325 mg tablet 2 tabs By Mouth Every 4 hours as needed For DX- PAIN PRN FOR MILD PAIN, DO NOT EXCEED 3000MG APAP/24 HOURS 2 tabs 202300 Active 2023 81859 78457 0 Every 4 hours as needed By Mouth False Tramadol 50 mg tablet [generic] 1 tab By Mouth Every 4 hours as needed For DX- PAIN 5-10 1 tab 03/10 Inactiv e 2023 80608 09795 0 Every 4 hours as needed By Mouth False Saline Mist 0.65 % nasal spray aerosol 2 sprays Nares Four times daily as needed For DRYNESS 2 sprays 202300 / Active 2023 71272 25356 8 Four times daily as needed Nares False Dulcolax (bisacodyl) 10 mg rectal suppository Daily as needed For Constipation 1 sup 202300 / Active 2023 09697 42622 1 Daily as needed Rectal False Hydrocortis one-pramoxi ne 1 %-1 % rectal cream [generic] 1 mague Rectal Four times daily as needed For hemorroid pain 1 mague 202300 /0000 Active 2023 88233 37386 4 Four times daily as needed Rectal False Melatonin 3 mg tablet [generic] 1 tab By Mouth At bedtime as needed For INSOMNIA 1 tab 12/24 Inactiv e 2023 43355 41816 8 At bedtime as needed By Mouth False Milk of Magnesia 400 mg/5 mL oral suspension 30ml By Mouth Daily as needed Daily as needed for constipation one time daily if no BM, on day 4 of no BM (PRN refer to instructions) For Constipation For Constipatioin 30ml 2023 Active 2023 19432 25498 2 Daily as needed By Mouth False Baclofen 20 mg tablet [generic] 20 mg By Mouth 4 times a day For MUSCLE SPASMS 20 mg 2023 Active 2023 26924 14139 1 4 times a day By Mouth False Melatonin 3 mg tablet [generic] 1 tab By Mouth At bedtime as needed For INSOMNIA 1 tab 2023 Active 2023 49834 44974 8 At bedtime as needed By Mouth False Bactrim DS 800 mg-160 mg tablet 1 tab By Mouth Twice daily For URINARY TRACT INFECTION, SITE NOT SPECIFIED 1 tab 01/06 Inactiv e 2023 84872 80866 1 Twice daily By Mouth N39.0 False Cefdinir 300 mg capsule [generic] 300 mg By Mouth Twice daily For UTI 300 mg 01/07 Inactiv e 2023 88734 77586 0 Twice daily By Mouth False Cefdinir 300 mg capsule [generic] 300 mg By Mouth Twice daily For UTI 300 mg 01/17 Inactiv e 2023 46079 58998 0 Twice daily By Mouth False Zyrtec 10 mg tablet 10 mg By Mouth Once daily For sinus congestion 10 mg 01/22 Inactiv e 2023 69694 09734 0 Once daily By Mouth False Tobramycin 0.3 %-dexametha sone 0.1 % eye drops,suspe nsion [generic] 0.3-0.1 % Left Eye 4 times a day For eye infection 0.3-0.1 % 02/05 Inactiv e 2023 43226 85610 5 4 times a day Left Eye False Fluconazole 150 mg tablet [generic] 150 mg By Mouth 1 time For yeast infection 150 mg 02/15 Inactiv e 2023 00840 94507 2 1 time By Mouth False Tramadol 50 mg tablet [generic] 1 tab By Mouth Every 4 hours as needed For DX- PAIN 5-10 1 tab 2023 00/00 /0000 Active 2023 09760 17812 0 Every 4 hours as needed By Mouth False Tobramycin 0.3 %-dexametha sone 0.1 % eye drops,suspe nsion [generic] 1 drop Left Eye 4 times a day For Inflammation of left eye 1 drop 05/08 Inactiv e 2023 66457 24189 5 4 times a day Left Eye False Voltaren Arthritis Pain 1 % topical gel 2 gm Topical Twice daily to rigth shoulder for 2 weeks For pain 2 gm 05/08 Inactiv e 2023 56397 29425 1 Twice daily Topica l False Chlorthalid one 25 mg tablet [generic] 12.5mg By Mouth Once daily For HTN 12.5mg 05/06 Inactiv e 2023 69963 60149 0 Once daily By Mouth False Chlorthalid one 25 mg tablet [generic] 12.5mg By Mouth Once daily For HTN 12.5mg 05/07 Inactiv e 2023 72232 90853 0 Once daily By Mouth False Chlorthalid one 25 mg tablet [generic] 05/07 Inactiv e 2023 37074 65800 0 Chlorthalid one 25 mg tablet [generic] 12.5mg By Mouth Once daily For HTN 12.5mg 06/26 Inactiv e 2023 66603 01688 0 Once daily By Mouth False Norvasc 5 mg tablet 5mg By Mouth Once daily, hold medication if systolic is less than 90 For HYPERTENSIVE HEART DISEASE WITHOUT HEART FAILURE 5mg 06/03 Inactiv e 2023 36867 96824 1 Once daily By Mouth I11.9 False Norvasc 5 mg tablet 5mg By Mouth Once daily, hold medication if systolic is less than 90 For HYPERTENSIVE HEART DISEASE WITHOUT HEART FAILURE 5mg 06/03 Inactiv e 2023 39201 97306 1 Once daily By Mouth I11.9 False Norvasc 5 mg tablet 5mg By Mouth Once daily, hold medication if systolic is less than 90 For HYPERTENSIVE HEART DISEASE WITHOUT HEART FAILURE 5mg 06/26 Inactiv e 2023 54774 42190 1 Once daily By Mouth I11.9 False [...] 10 mg 2023 00/00 /0000 Active 2023 36631 98710 1 Once daily By Mouth False DISCONTINUE [...] CAD 81 mg 06/14 Inactiv e 2023 54164 82015 9 Once daily By Mouth False Aspirin 81 mg tablet,camron yed release [generic] 06/14 Inactiv e 2023 00787 47674 9 Aspirin 81 mg tablet,camron yed release [generic] 81 mg By Mouth Once daily Do not crush, chew, or break For CAD 81 mg 06/154 Inactiv e 2023 53480 15921 9 Once daily By Mouth False Cefpodoxime 200 mg tablet [generic] 200mg By Mouth Twice daily For UTI 200mg 07/04 Inactiv e 2023 88237 91652 0 Twice daily By Mouth False Calcium citrate 250 mg tablet [generic] 06/26 Inactiv e 2023 74028 70988 6 Calcium citrate 250 mg tablet [generic] Once daily TAKE 4 TABLETS (1000MG) BY MOUTH For SUPPLEMENT 500 MG 2023 Active 2023 19272 61467 6 Once daily By Mouth False Norvasc 5 mg tablet 7.5 mg By Mouth Once daily Hold medication if SBP <90 For HYPERTENSIVE HEART DISEASE WITHOUT HEART FAILURE 7.5 mg 06/30 Inactiv e 2023 75579 24267 1 Once daily By Mouth I11.9 False Norvasc 5 mg tablet 7.5 mg By Mouth Once daily Hold medication if SBP <90 For HYPERTENSIVE HEART DISEASE WITHOUT HEART FAILURE 7.5 mg 07/06 Inactiv e 2023 10396 54571 1 Once daily By Mouth I11.9 False Simethicone 125 mg capsule [generic] 2 capule By Mouth Twice daily as needed For bloating/gas pain 2 capule 2023 Active 2023 55382 38783 0 Twice daily as needed By Mouth False Cepacol Sore Throat (benzocaine -menthol) 15 mg-2.6 mg lozenges 2 lozenges By Mouth Every 6 hours as needed For sore throat 2 lozenge s 2023 Active 2023 56173 98810 6 Every 6 hours as needed By Mouth False Cefepime 1 gram solution for injection [generic] 1g Intramuscular Every 12 hours 1g intramuscular ly ever 12 hours For UTI 1g 07/06 Inactiv e 2023 88272 04109 4 Every 12 hours Intram uscula r False Cefepime 1 gram solution for injection [generic] 07/06 Inactiv e 2023 44500 38057 4 Cefepime 1 gram solution for injection [generic] 1g Intramuscular Every 12 hours 1g intramuscular ly ever 12 hours For UTI Reconstitute with 2.4 ML of NSS. 1g 07/08 Inactiv e 2023 47756 68224 4 Every 12 hours Intram uscula r False Norvasc 5 mg tablet 07/06 Inactiv e 2023 26072 80046 1 I11.9 Norvasc 5 mg tablet 7.5 mg By Mouth Once daily Hold medication if SBP <90 For HYPERTENSIVE HEART DISEASE WITHOUT HEART FAILURE 7.5 mg 07/18 Inactiv e 2023 92759 32694 1 Once daily By Mouth I11.9 False Cefepime 1 gram solution for injection [generic] 07/08 Inactiv e 2023 43772 52170 4 Cefepime 1 gram solution for injection [generic] 1g Intramuscular Every 12 hours 1g intramuscular ly ever 12 hours For UTI Reconstitute with 2.4 ML of NSS. 1g 07/08 Inactiv e 2023 53944 74058 4 Every 12 hours Intram uscula r False Cefepime 1 gram solution for injection [generic] 07/08 Inactiv e 2023 94382 09803 4 Cefepime 1 gram solution for injection [generic] 1g Intramuscular Every 12 hours 1g intramuscular ly ever 12 hours For UTI Reconstitute with 2.4 ML of NSS. 1g 07/11 Inactiv e 2023 76982 00271 4 Every 12 hours Intram uscula r False Fleet Enema 19 gram-7 gram/118 mL 1 Rectal 1 time For constipation 1 07/16 Inactiv e 2024 42314 08764 6 1 time Rectal False Fleet Enema 19 gram-7 gram/118 mL 1 Rectal 1 time For constipation 1 07/17 Inactiv e 2024 21627 18904 6 1 time Rectal False Norvasc 5 mg tablet 7.5 mg By Mouth Once daily For HYPERTENSIVE HEART DISEASE WITHOUT HEART FAILURE 7.5 mg 2024 00/00 /0000 Active 2024 01788 82754 1 Once daily By Mouth I11.9 False Potassium chloride ER 20 mEq tablet,exte nded release(par t/cryst) [generic] 40 mEq By Mouth 1 time For low potassium prior to surgery 40 mEq 07/18 Inactiv e 2024 84852 91636 1 1 time By Mouth False Potassium chloride ER 20 mEq tablet,exte nded release(par t/cryst) [generic] 40 mEq By Mouth 1 time For low potassium prior to surgery 40 mEq 07/18 Inactiv e 2024 25381 66872 1 1 time By Mouth False Potassium chloride ER 20 mEq tablet,exte nded release(par t/cryst) [generic] 40 mEq By Mouth 1 time For low potassium 40 mEq 07/18 Inactiv e 2024 53814 73063 1 1 time By Mouth False Potassium chloride ER 20 mEq tablet,exte nded release(par t/cryst) [generic] 40 mEq By Mouth 1 time For low potassium 40 mEq 07/18 Inactiv e 2024 11831 98819 1 1 time By Mouth False Potassium chloride ER 20 mEq tablet,exte nded release [generic] 2 By Mouth 1 time For low potassium 2 07/19 Inactiv e 2024 92342 71514 1 1 time By Mouth False Potassium chloride ER 20 mEq tablet,exte nded release [generic] 2 capsules capsules By Mouth 1 time Please send capsule (2 capsules) For low potassium 2 capsule s 07/20 Inactiv e 2024 31084 21647 1 1 time By Mouth False Potassium chloride ER 20 mEq tablet,exte nded release(par t/cryst) [generic] TAKE (2) TABLETS (40MEQ) BY MOUTH X1 DOSE 07/20 Inactiv e 2024 17892 09528 5 Cefepime 1 gram solution for injection [generic] 1 gram Intramuscular Every 12 hours For Urinary Tract Infection 1 gram 07/21 Inactiv e 2024 57193 60113 4 Every 12 hours Intram uscula r False Cefepime 1 gram solution for injection [generic] 07/21 Inactiv e 2024 90522 31978 4 Cefepime 1 gram solution for injection [generic] 1 gram Intramuscular Every 12 hours For Urinary Tract Infection 1 gram 07/22 Inactiv e 2024 52574 94949 4 Every 12 hours Intram uscula r False Cefepime 1 gram solution for injection [generic] 1 gram Intramuscular Every 12 hours For Urinary Tract Infection 1 gram 08/06 Active 2024 64609 85131 4 Every 12 hours Intram uscula r False Klor-Con 10 mEq tablet,exte nded release Klor- Con GIVE 2 Capsules daily Do NOT SEND Tablets Requesting Micro K 10 meq capsules For hyponatremia 2 capsule s 2024 00/00 /0000 Active 2024 49383 17387 1 Once daily By Mouth False Nystatin 100,000 unit/gram topical cream [generic] 100,000 unit Topical As Needed For DX- EXCORIATION 100,000 unit 12/12 Inactiv e 2023 08766 39350 5 Topica l False Vicks Vaporub 4.7 %-1.2 %-2.6 % topical ointment 4.7-1.2-2.6 Topical 3 times a day As Needed For DX- CONGESTION 4.7-1.2 -2.6 12/12 Inactiv e 2023 25411 42934 1 3 times a day Topica l False Ketoconazol e 2 % shampoo [generic] APPLY SHAMPOO TOPICALLY TO SCALP DURING HAIR WASHINGDX: ELVIA DERM OF SCALP For DX- ELVIA DERM OF SCALP 12/12 Inactiv e 2023 53578 47083 4 Topica l False THERA SILICONE SKIN GUARD Topical Twice daily 1 APPLICATION TOPICALLY IN THE MORNING AND AT BEDTIME TO SCROTUM For DX- PREVENTION 2023 Active 2023 Twice daily Topica l False Selenium sulfide 2.5 % lotion [generic] 2.5 % Topical EVERY MONDAY, MONDAY AND MONDAY AFTER SHOWER For DANDRUFF 2.5 % 2023 Active 2023 48037 32456 4 3 times a week Topica l False Nystatin (bulk) 100 million unit powder [generic] 100 million Topical Twice daily as needed For EXOCORATION 100 million 12/20 Inactiv e 2023 43179 61939 1 Twice daily as needed Topica l False Ketoconazol e 2 % shampoo [generic] Once daily APPLY SHAMPOO TOPICALLY TO SCALP DURING HAIR WASHING ON SHOWER DAYS- , , SAT For ELVIA DERM OF SCAP 2 % 2023 Active 2023 57112 40490 4 Once daily Topica l False Nystatin 100,000 unit/gram topical cream [generic] 1 mague Topical Twice daily as needed For EXOCORATION 1 mague 06/05 Inactiv e 2023 38334 25268 5 Twice daily as needed Topica l False Nystatin 100,000 unit/gram topical powder [generic] 100,000 unit Topical Twice daily to scrotum with AM and PM care For Scrotal excoriation 100,000 unit 06/05 Inactiv e 2023 56221 67790 5 Twice daily Topica l False Problems [...] of urinary device 07/21/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 07/21 Active N31.9 [...] Temperature SpO2 Blood Sugar Pulse Respirations 216 23955 1 254.10 NI 216 12155 2 79.00 mm[Hg] - Sitting 157.00 mm[Hg] - Sitting 73 NI 254.10 NI 36.30 Tympanic 95.00 % 72.00/ min 16.00/min 84934 216 22911 4 98.80 Tympanic 99086 216 02347 2 78.00 mm[Hg] - Sitting 164.00 mm[Hg] - Sitting 32448 217 46877 3 98.20 Tympanic 31793 217 37317 5 73.00 mm[Hg] - Sitting 159.00 mm[Hg] - Sitting 57432 217 78234 9 98.40 Forehead Scan 218 70787 3 97.90 Tympanic 03197 218 48139 5 77.00 mm[Hg] - Sitting 137.00 mm[Hg] - Sitting 22259 219 04306 0 97.70 Tympanic 46906 219 85035 6 97.60 Tympanic 78801 219 77276 4 76.00 mm[Hg] - Sitting 139.00 mm[Hg] - Sitting 33830 219 68310 4 97.80 Forehead Scan 43086 220 48043 9 97.90 Tympanic 67066 220 60309 9 76.00 mm[Hg] - Sitting 138.00 mm[Hg] - Sitting 95069 220 60712 6 98.10 Tympanic 80897 221 31028 5 67.00 mm[Hg] - Sitting 142.00 mm[Hg] - Sitting 54658 221 07593 8 98.20 Tympanic 01628 221 64003 0 98.30 Tympanic 80259 222 47044 7 98.20 Tympanic 93277 222 74628 8 97.90 Tympanic 70459 223 63182 3 98.20 Tympanic 03930 223 51908 3 98.00 Tympanic 37308 224 99240 0 59.00 mm[Hg] - Sitting 111.00 mm[Hg] - Sitting 98.40 Forehead Scan 95.00 % 56.00/ min 18.00/min 31430 224 29519 9 98.20 Forehead Scan 71629 224 75759 3 97.90 Tympanic 03394 225 07154 4 98.20 Tympanic 04347 225 13602 8 97.50 Forehead Scan 85196 228 24877 0 55.00 mm[Hg] - Sitting 118.00 mm[Hg] - Sitting 98.40 Tympanic 69.00/ min 05351 229 77711 8 78.00 mm[Hg] - Sitting 152.00 mm[Hg] - Sitting 79430 230 45174 0 62.00 mm[Hg] - Sitting 122.00 mm[Hg] - Sitting 88776 231 27415 7 72.00 mm[Hg] - Lying Down 140.00 mm[Hg] - Lying Down 92468 101 44364 3 97.70 Forehead Scan 91313 101 82522 1 254.10 NI 69.00/ min 11299 101 10454 9 72.00 mm[Hg] - Sitting 142.00 mm[Hg] - Sitting 97.70 Tympanic 18.00/min 55247 101 13299 3 72.00 mm[Hg] - Lying Down 142.00 mm[Hg] - Lying Down 12193 102 77412 8 68.00 mm[Hg] - Lying Down 152.00 mm[Hg] - Lying Down 88098 103 36327 5 74.00 mm[Hg] - Sitting 158.00 mm[Hg] - Sitting 74441 104 97080 9 78.00 mm[Hg] - Sitting 144.00 mm[Hg] - Sitting 17730 105 69327 5 68.00 mm[Hg] - Sitting 138.00 mm[Hg] - Sitting 81205 106 60199 1 70.00 mm[Hg] - Sitting 138.00 mm[Hg] - Sitting 56892 107 38466 1 67.00 mm[Hg] - Sitting 142.00 mm[Hg] - Sitting 30981 108 27456 0 74.00 mm[Hg] - Sitting 143.00 mm[Hg] - Sitting 22601 110 67074 6 85.00 mm[Hg] - Sitting 160.00 mm[Hg] - Sitting 97.80 Tympanic 93.00 % 76.00/ min 18.00/min 27511 111 28862 1 83.00 mm[Hg] - Sitting 129.00 mm[Hg] - Sitting 98.60 Tympanic 92.00 % 71.00/ min 18.00/min 48246 111 20806 5 60.00 mm[Hg] - Sitting 114.00 mm[Hg] - Sitting 98.70 Tympanic 92.00 % 76.00/ min 18.00/min 80635 112 71945 4 55.00 mm[Hg] - Sitting 125.00 mm[Hg] - Sitting 98.60 Tympanic 91.00 % 68.00/ min 18.00/min 05184 112 76136 9 75.00 mm[Hg] - Sitting 174.00 mm[Hg] - Sitting 97.70 Tympanic 96.00 % 71.00/ min 18.00/min 74119 113 66178 2 77.00 mm[Hg] - Sitting 139.00 mm[Hg] - Sitting 98.10 Tympanic 97.00 % 81.00/ min 18.00/min 13493 113 38784 4 78.00 mm[Hg] - Sitting 153.00 mm[Hg] - Sitting 98.40 Tympanic 93.00 % 69.00/ min 18.00/min 37918 114 12036 5 76.00 mm[Hg] - Sitting 137.00 mm[Hg] - Sitting 98.10 Tympanic 97.00 % 80.00/ min 18.00/min 61877 114 12063 0 76.00 mm[Hg] - Sitting 145.00 mm[Hg] - Sitting 97.90 Tympanic 98.00 % 73.00/ min 18.00/min 12029 115 79106 3 98.40 Tympanic 80255 115 81530 5 79.00 mm[Hg] - Sitting 143.00 mm[Hg] [...]
--- OUTSIDE RECORDS SUMMARY | 2024-07-26 11:11 | External Medical Summary | Continuity Of Care Document ---
Author Name Unknown Address [address] [place] [address] [facility] () Care Team Providers Care Fitter Hand Name Role Phone DO Pritchett Amy Primary Care Provider [phone] Allergies Allergy Reaction Start Date End Date Status AMINOGLYCOSIDES Active CIPRO Active GENTAMICIN Active NSAIDS (NON-STEROIDAL ANTI-INFLAMMATORY DRUG) 0 Active IBUPROFEN Active QUINOLONES Active VALIUM Active Medications Medication Instructions Dosage Start Date End Date Status Order Date Drug Code Frequency Route of Admin Diagnosis Code Substitutions Allowed Spikevax [id number](1 2y up)(PF) 50 mcg/0.5 mL intramuscul ar suspension [COVID oxh32-42(12 up)(andu)(P F)] 0.5mL Intramuscular 1 time Monitory 15 Minutes post injection for adverse effects; record site/temp For COVID 19 PREVENTION 0.5mL 01/02 Inactiv e 2023 04067 42691 4 1 time Intram uscula r False [facility] - Nurse initials indicate verificatio n that [id number] vaccine was administere d by [facility] Representat jon 1 Intramuscular 1 time ( Indicate vaccine type) For vaccine 1 05/03 Inactiv e 2023 1 time Intram uscula r False Lisinopril 40 mg tablet [generic] TAKE ONE (1) TABLET BY MOUTH IN THE MORNING. For DX- HTN 1 2023 Active 2023 21977 83937 1 Once daily By Mouth False Tizanidine 2 mg tablet [generic] TAKE ONE (1) TABLET BY MOUTH ONCE DAILY For MUSCLE SPASM 1 2023 Active 2023 37681 77414 0 Once daily By Mouth M62.838 False Tamsulosin 0.4 mg capsule [generic] TAKE (1) CAPSULE BY MOUTH AT BEDTIME For SPASMS 1 2023 Active 2023 63837 79079 0 Once daily By Mouth False Aspirin 81 mg tablet Once daily 1 TABLET BY MOUTH IN THE MORNING For DX- CAD DO NOT CRUSH, CHEW OR BREAK 81 mg 06/12 Inactiv e 2023 Once daily By Mouth False Baclofen 20 mg tablet [generic] 20 mg By Mouth 4 times a day For DX- MUSCLE SPASMS 20 mg 12/12 Inactiv e 2023 61009 51034 1 4 times a day By Mouth False Calcium citrate 250 mg tablet Once daily 4 TABLET BY MOUTH For DX- SUPPLEMENT 250 mg calci 12/12 Inactiv e 2023 Once daily By Mouth False Co Q-10 100 mg capsule 100 mg By Mouth Once daily For DX- SUPPLEMENT 100 mg 06/20 Inactiv e 2023 58198 76008 5 Once daily By Mouth False Furosemide 20 mg tablet [generic] 20 mg By Mouth Once daily For DX-CHF 20 mg 12/12 Inactiv e 2023 43587 49116 0 Once daily By Mouth False Gabapentin 300 mg capsule [generic] 300 mg By Mouth 3 times a day For DX- NEUROPATHY 300 mg 12/12 Inactiv e 2023 26336 60553 4 3 times a day By Mouth False Loratadine 10 mg tablet [generic] 10 mg By Mouth Once daily For DX- ALLERGIES 10 mg 2023 Active 2023 86458 19141 1 Once daily By Mouth False Miralax 17 gram/dose oral powder 17 gram/dose By Mouth IN THE MORNING Mix 1 TABLESPOON IN 8 OZ OF FLUID HOLD FOR LOOSE STOOLS For DX- CONSTIPATION 17 gram/do se 12/12 Inactiv e 2023 30633 54705 0 Once daily By Mouth False Paroxetine 30 mg tablet [generic] 30 mg By Mouth Once daily For DX- DEPRESSION 30 mg 2023 00/00 /0000 Active 2023 46662 40806 3 Once daily By Mouth False Potassium citrate ER 15 mEq (1,620 mg) tablet,exte nded release [generic] 15 mEq By Mouth 3 times a day For DX- SUPPLEMENT/DI URETIC USE/ HYPOCITRAUIRA DO NOT CRUSH 15 mEq 12/12 Inactiv e 2023 67489 46770 1 3 times a day By Mouth [...] For DX- DANDRUFF 12/12 Inactiv e 2023 11999 72436 4 3 times a week Topica l False Acetaminoph en 325 mg tablet [generic] TAKE 2 TABS (650MG) BY MOUTH EVERY 4 HOURS NEEDED FOR TEMP >100 NOT TO EXCEED 3GM/24HRS TAKE 2 TABS (650MG) BY MOUTH EVERY 4 HOURS NEEDED FOR TEMP >100 NOT TO EXCEED 3GM/24HRS For DX-FEVER 2 12/12 Inactiv e 2023 03776 65213 0 By Mouth False MILK OF MAGNESIA ADMINISTER 30 ML BY MOUTH ONCE DAILY NEEDED FOR CONSTIPATION X3 DAYS WITH NO BM. For DX- CONSTIPATION 30ML 12/12 Inactiv e 2023 67018 61210 9 By Mouth False Enema Disposable 19 gram-7 gram/118 mL ADMINISTER ONE ENEMA RECTALLY ONCE DAILY NEEDED FOR CONSTIPATION ON DAY 6 OF NO BM For DX- CONSTIPATION 12/12 Inactiv e 2023 72949 52205 1 Rectal False TUMS EXTRA STR 750MG TAKE (1) TABLET BY MOUTH THREE TIMES DAILY NEEDED FOR INDIGESTION For DX- INDIGESTION 1 12/12 Inactiv e 2023 92065 40681 8 By Mouth False Vitamin D3 25 [...] CONSTIPATION 10 mg 12/12 Inactiv e 2023 42314 72847 1 Rectal False Melatonin 3 mg tablet [generic] 3 mg By Mouth As Needed For DX-INSOMMIA 3 mg 12/12 Inactiv e 2023 30274 44294 8 By Mouth False Hydrocortis one 1 % topical cream [generic] 1 % Topical As Needed For DX- PAIN 1 % 12/12 Inactiv e 2023 04522 65892 1 Topica l False HYDROCORTIS ONE/PARMOXI NE [...] 5-10 50 mg 12/20 Inactiv e 2023 97106 61707 0 Every 4 hours as needed By Mouth False Tylenol 325 mg tablet 325 mg By Mouth Every 4 hours as needed For DX- PAIN PRN FOR MILD PAIN, DO NOT EXCEED 3000MG APAP/24 HOURS 325 mg 12/20 Inactiv e 2023 00090 14959 0 Every 4 hours as needed By Mouth False Baclofen 20 mg tablet [generic] 20 mg By Mouth 4 times a day For MUSCLE SPASMS 20 mg 12/20 Inactiv e 2023 59300 56747 1 4 times a day By Mouth False Calcium citrate 250 mg tablet [generic] Once daily TAKE 4 TABLETS (1000MG) BY MOUTH For SUPPLEMENT 1000 MG 06/26 Inactiv e 2023 67198 99786 6 Once daily By Mouth False Dulcolax (bisacodyl) 10 mg rectal suppository 10 mg Rectal Once daily For CONSTIPATION *MAY HOLD FOR LOOSE STOOLS* 10 mg 2023 Active 2023 32063 34002 1 Once daily Rectal False Gabapentin 300 mg capsule [generic] 300 mg By Mouth 3 times a day For NEUROPATHY 300 mg 2023 Active 2023 76365 31048 4 3 times a day By Mouth False Potassium citrate ER 15 mEq (1,620 mg) tablet,exte nded release [generic] 15 mEq By Mouth 3 times a day For SUPPLEMENT/DI URETIC USE/HYPOCITRA URIA 15 mEq 06/11 Inactiv e 2023 62370 93262 1 3 times a day By Mouth False Potassium chloride ER 20 mEq tablet,exte nded release [generic] 20 mEq By Mouth 3 times a day *DO NOT CRUSH, CHEW OR BREAK* For SUPPLEMENT 20 mEq 12/18 Inactiv e 2023 33337 22019 1 3 times a day By Mouth False Tizanidine 4 mg tablet [generic] 4 mg By Mouth Once daily For MUSCLE SPASMS 4 mg 2023 Active 2023 98924 30115 0 Once daily By Mouth False Tylenol 325 mg tablet 2 tabs By Mouth Every 4 hours as needed For Fever >100 DO NOT EXCEED 3000 MG APAP/24 Hours 2 tabs 12/20 Inactiv e 2023 34472 74631 0 Every 4 hours as needed By Mouth False Dulcolax (bisacodyl) 10 mg rectal suppository Daily as needed For Constipation 1 sup 12/20 Inactiv e 2023 45864 52683 1 Daily as needed Rectal False Fleet Enema 19 gram-7 gram/118 mL 1 Rectal Daily as neededFor Constipation 1 12/20 Inactiv e 2023 25472 69643 6 Daily as needed Rectal False Milk of Magnesia 400 mg/5 mL oral suspension [Magnesium hydroxide] PRN 30ml By Mouth Daily as needed for constipation one time daily if no BM, on day 4 of no BM (PRN refer to instructions) For Constipation For Constipatioin 30ml 12/20 Inactiv e 2023 44513 43946 6 1 time By Mouth False Melatonin 3 mg tablet [generic] 3 mg By Mouth Once daily As Needed For INSOMNIA 3 mg 12/20 Inactiv e 2023 51302 17734 8 Once daily By Mouth False Hydrocortis one 1 % topical cream [generic] 1 % Rectal Four times daily as needed For hemorroid pain 1 % 12/20 Inactiv e 2023 18777 84188 1 Four times daily as needed Rectal False X-STGH ANTACID 750MG CHEW TAKE (1) TABLET BY MOUTH THREE TIMES DAILY NEEDED FOR INDIGESTION 12/20 Inactiv e 2023 78586 54390 4 Three times daily as needed Saline Mist 0.65 % nasal spray aerosol 0.65 % Nares Four times daily as needed For DRYNESS 0.65 % 12/20 Inactiv e 2023 18364 42664 8 Four times daily as needed Nares False Vicks Vaporub 4.7 %-1.2 %-2.6 % topical ointment Apply topically to chest Three times daily as needed For CONGESTION 4.7-1.2 -2.6 12/20 Inactiv e 2023 99654 46572 1 Three times daily as needed Topica l False VITAMIN D3 2000U CAP TAKE ONE (1) CAPSULE BY MOUTH DAILY* DO NOT CRUSH, CHEW OR BREAK* For Supplement 1 capsule 12/19 Inactiv e 2023 70781 55723 0 Once daily By Mouth False Potassium chloride ER 20 mEq tablet,exte nded release(par t/cryst) [generic] TAKE (1) TABLET BY MOUTH THREE TIMES DAILY (MORNING, AFTERNOON, EVENING)*DO NOT CRUSH, CHEW, OR BREAK* For SUPPLEMENT 20 MEQ 06/11 Inactiv e 2023 29445 22938 5 3 times a day By Mouth False Aspirin 81 mg tablet,camron yed release [generic] TAKE ONE (1) TABLET BY MOUTH ONCE DAILY*DO NOT CRUSH, CHEW OR BREAK* For CAD 81 MG 12/22 Inactiv e 2023 03764 78784 0 Once daily By Mouth False Furosemide 20 mg tablet [generic] TAKE 1 AND 1/2 TABLETS (30MG) BY MOUTH ONCE DAILY For CHF 30mg 2023 Active 2023 47911 41178 1 Once daily By Mouth False Polyethylen e glycol 3350 17 gram/dose oral powder [generic] MIX 17 GRAMS (1 CAPFUL) IN 60Z OF LIQUID AND DRINK BY MOUTH ONCE DAILY *HOLD FOR LOOSE STOOLS* For constipation 17 g 2023 Active 2023 28008 05962 3 Once daily By Mouth False Vitamin D3 50 mcg (2,000 unit) capsule Once daily TAKE ONE (1) CAPSULE BY MOUTH DAILY* DO NOT CRUSH, CHEW OR BREAK* For Supplement 1 capsule 02/07 Inactiv e 2023 80577 58618 2 Once daily By Mouth False Fleet Enema 19 gram-7 gram/118 mL 1 Rectal Daily as neededFor Constipation 1 2023 0000 Active 2023 09725 82233 6 Daily as needed Rectal False Tums E-X 300 mg (as calcium carbonate 750 mg) chewable tablet 1 tab By Mouth TAKE (1) TABLET BY MOUTH THREE TIMES DAILY NEEDED FOR INDIGESTION 1 tab 202300 /0000 Active 2023 34545 08334 1 Three times daily as needed By Mouth False Tylenol 325 mg tablet 2 tabs By Mouth Every 4 hours as needed For Fever >100 DO NOT EXCEED 3000 MG APAP/24 Hours 2 tabs 202300 /0000 Active 2023 05565 73212 0 Every 4 hours as needed By Mouth False Vicks Vaporub 4.7 %-1.2 %-2.6 % topical ointment Apply topically to chest Three times daily as needed For CONGESTION topical 202300 Active 2023 79062 13731 1 Three times daily as needed Topica l False Tylenol 325 mg tablet 2 tabs By Mouth Every 4 hours as needed For DX- PAIN PRN FOR MILD PAIN, DO NOT EXCEED 3000MG APAP/24 HOURS 2 tabs 202300 Active 2023 61448 16085 0 Every 4 hours as needed By Mouth False Tramadol 50 mg tablet [generic] 1 tab By Mouth Every 4 hours as needed For DX- PAIN 5-10 1 tab 03/10 Inactiv e 2023 55022 03567 0 Every 4 hours as needed By Mouth False Saline Mist 0.65 % nasal spray aerosol 2 sprays Nares Four times daily as needed For DRYNESS 2 sprays 202300 / Active 2023 83777 95522 8 Four times daily as needed Nares False Dulcolax (bisacodyl) 10 mg rectal suppository Daily as needed For Constipation 1 sup 202300 / Active 2023 81396 76917 1 Daily as needed Rectal False Hydrocortis one-pramoxi ne 1 %-1 % rectal cream [generic] 1 mague Rectal Four times daily as needed For hemorroid pain 1 mague 202300 /0000 Active 2023 45282 96493 4 Four times daily as needed Rectal False Melatonin 3 mg tablet [generic] 1 tab By Mouth At bedtime as needed For INSOMNIA 1 tab 12/24 Inactiv e 2023 84352 46826 8 At bedtime as needed By Mouth False Milk of Magnesia 400 mg/5 mL oral suspension 30ml By Mouth Daily as needed Daily as needed for constipation one time daily if no BM, on day 4 of no BM (PRN refer to instructions) For Constipation For Constipatioin 30ml 2023 Active 2023 16800 55252 2 Daily as needed By Mouth False Baclofen 20 mg tablet [generic] 20 mg By Mouth 4 times a day For MUSCLE SPASMS 20 mg 2023 Active 2023 06215 88974 1 4 times a day By Mouth False Melatonin 3 mg tablet [generic] 1 tab By Mouth At bedtime as needed For INSOMNIA 1 tab 2023 Active 2023 11511 62141 8 At bedtime as needed By Mouth False Bactrim DS 800 mg-160 mg tablet 1 tab By Mouth Twice daily For URINARY TRACT INFECTION, SITE NOT SPECIFIED 1 tab 01/06 Inactiv e 2023 98838 52042 1 Twice daily By Mouth N39.0 False Cefdinir 300 mg capsule [generic] 300 mg By Mouth Twice daily For UTI 300 mg 01/07 Inactiv e 2023 80683 27783 0 Twice daily By Mouth False Cefdinir 300 mg capsule [generic] 300 mg By Mouth Twice daily For UTI 300 mg 01/17 Inactiv e 2023 40992 42696 0 Twice daily By Mouth False Zyrtec 10 mg tablet 10 mg By Mouth Once daily For sinus congestion 10 mg 01/22 Inactiv e 2023 11482 37957 0 Once daily By Mouth False Tobramycin 0.3 %-dexametha sone 0.1 % eye drops,suspe nsion [generic] 0.3-0.1 % Left Eye 4 times a day For eye infection 0.3-0.1 % 02/05 Inactiv e 2023 45387 10064 5 4 times a day Left Eye False Fluconazole 150 mg tablet [generic] 150 mg By Mouth 1 time For yeast infection 150 mg 02/15 Inactiv e 2023 48156 91424 2 1 time By Mouth False Tramadol 50 mg tablet [generic] 1 tab By Mouth Every 4 hours as needed For DX- PAIN 5-10 1 tab 2023 00/00 /0000 Active 2023 71531 68476 0 Every 4 hours as needed By Mouth False Tobramycin 0.3 %-dexametha sone 0.1 % eye drops,suspe nsion [generic] 1 drop Left Eye 4 times a day For Inflammation of left eye 1 drop 05/08 Inactiv e 2023 33883 95423 5 4 times a day Left Eye False Voltaren Arthritis Pain 1 % topical gel 2 gm Topical Twice daily to rigth shoulder for 2 weeks For pain 2 gm 05/08 Inactiv e 2023 32812 01183 1 Twice daily Topica l False Chlorthalid one 25 mg tablet [generic] 12.5mg By Mouth Once daily For HTN 12.5mg 05/06 Inactiv e 2023 18448 36889 0 Once daily By Mouth False Chlorthalid one 25 mg tablet [generic] 12.5mg By Mouth Once daily For HTN 12.5mg 05/07 Inactiv e 2023 15780 63600 0 Once daily By Mouth False Chlorthalid one 25 mg tablet [generic] 05/07 Inactiv e 2023 46875 68914 0 Chlorthalid one 25 mg tablet [generic] 12.5mg By Mouth Once daily For HTN 12.5mg 06/26 Inactiv e 2023 59279 95742 0 Once daily By Mouth False Norvasc 5 mg tablet 5mg By Mouth Once daily, hold medication if systolic is less than 90 For HYPERTENSIVE HEART DISEASE WITHOUT HEART FAILURE 5mg 06/03 Inactiv e 2023 88851 26135 1 Once daily By Mouth I11.9 False Norvasc 5 mg tablet 5mg By Mouth Once daily, hold medication if systolic is less than 90 For HYPERTENSIVE HEART DISEASE WITHOUT HEART FAILURE 5mg 06/03 Inactiv e 2023 62661 27300 1 Once daily By Mouth I11.9 False Norvasc 5 mg tablet 5mg By Mouth Once daily, hold medication if systolic is less than 90 For HYPERTENSIVE HEART DISEASE WITHOUT HEART FAILURE 5mg 06/26 Inactiv e 2023 37092 31580 1 Once daily By Mouth I11.9 False [...] 10 mg 2023 00/00 /0000 Active 2023 55575 94114 1 Once daily By Mouth False DISCONTINUE [...] CAD 81 mg 06/14 Inactiv e 2023 83643 88395 9 Once daily By Mouth False Aspirin 81 mg tablet,camron yed release [generic] 06/14 Inactiv e 2023 34666 48672 9 Aspirin 81 mg tablet,camron yed release [generic] 81 mg By Mouth Once daily Do not crush, chew, or break For CAD 81 mg 06/154 Inactiv e 2023 25570 62806 9 Once daily By Mouth False Cefpodoxime 200 mg tablet [generic] 200mg By Mouth Twice daily For UTI 200mg 07/04 Inactiv e 2023 73397 42964 0 Twice daily By Mouth False Calcium citrate 250 mg tablet [generic] 06/26 Inactiv e 2023 57866 60469 6 Calcium citrate 250 mg tablet [generic] Once daily TAKE 4 TABLETS (1000MG) BY MOUTH For SUPPLEMENT 500 MG 2023 Active 2023 50461 41830 6 Once daily By Mouth False Norvasc 5 mg tablet 7.5 mg By Mouth Once daily Hold medication if SBP <90 For HYPERTENSIVE HEART DISEASE WITHOUT HEART FAILURE 7.5 mg 06/30 Inactiv e 2023 94122 21538 1 Once daily By Mouth I11.9 False Norvasc 5 mg tablet 7.5 mg By Mouth Once daily Hold medication if SBP <90 For HYPERTENSIVE HEART DISEASE WITHOUT HEART FAILURE 7.5 mg 07/06 Inactiv e 2023 33235 05420 1 Once daily By Mouth I11.9 False Simethicone 125 mg capsule [generic] 2 capule By Mouth Twice daily as needed For bloating/gas pain 2 capule 2023 Active 2023 08090 35248 0 Twice daily as needed By Mouth False Cepacol Sore Throat (benzocaine -menthol) 15 mg-2.6 mg lozenges 2 lozenges By Mouth Every 6 hours as needed For sore throat 2 lozenge s 2023 Active 2023 35014 95730 6 Every 6 hours as needed By Mouth False Cefepime 1 gram solution for injection [generic] 1g Intramuscular Every 12 hours 1g intramuscular ly ever 12 hours For UTI 1g 07/06 Inactiv e 2023 26971 05322 4 Every 12 hours Intram uscula r False Cefepime 1 gram solution for injection [generic] 07/06 Inactiv e 2023 86378 44229 4 Cefepime 1 gram solution for injection [generic] 1g Intramuscular Every 12 hours 1g intramuscular ly ever 12 hours For UTI Reconstitute with 2.4 ML of NSS. 1g 07/08 Inactiv e 2023 19921 60729 4 Every 12 hours Intram uscula r False Norvasc 5 mg tablet 07/06 Inactiv e 2023 40109 78261 1 I11.9 Norvasc 5 mg tablet 7.5 mg By Mouth Once daily Hold medication if SBP <90 For HYPERTENSIVE HEART DISEASE WITHOUT HEART FAILURE 7.5 mg 07/18 Inactiv e 2023 90772 49813 1 Once daily By Mouth I11.9 False Cefepime 1 gram solution for injection [generic] 07/08 Inactiv e 2023 81815 50186 4 Cefepime 1 gram solution for injection [generic] 1g Intramuscular Every 12 hours 1g intramuscular ly ever 12 hours For UTI Reconstitute with 2.4 ML of NSS. 1g 07/08 Inactiv e 2023 07510 63333 4 Every 12 hours Intram uscula r False Cefepime 1 gram solution for injection [generic] 07/08 Inactiv e 2023 07222 83404 4 Cefepime 1 gram solution for injection [generic] 1g Intramuscular Every 12 hours 1g intramuscular ly ever 12 hours For UTI Reconstitute with 2.4 ML of NSS. 1g 07/11 Inactiv e 2023 14786 52001 4 Every 12 hours Intram uscula r False Fleet Enema 19 gram-7 gram/118 mL 1 Rectal 1 time For constipation 1 07/16 Inactiv e 2024 91418 97304 6 1 time Rectal False Fleet Enema 19 gram-7 gram/118 mL 1 Rectal 1 time For constipation 1 07/17 Inactiv e 2024 39873 79695 6 1 time Rectal False Norvasc 5 mg tablet 7.5 mg By Mouth Once daily For HYPERTENSIVE HEART DISEASE WITHOUT HEART FAILURE 7.5 mg 2024 00/00 /0000 Active 2024 27972 96304 1 Once daily By Mouth I11.9 False Potassium chloride ER 20 mEq tablet,exte nded release(par t/cryst) [generic] 40 mEq By Mouth 1 time For low potassium prior to surgery 40 mEq 07/18 Inactiv e 2024 13878 69466 1 1 time By Mouth False Potassium chloride ER 20 mEq tablet,exte nded release(par t/cryst) [generic] 40 mEq By Mouth 1 time For low potassium prior to surgery 40 mEq 07/18 Inactiv e 2024 87124 27003 1 1 time By Mouth False Potassium chloride ER 20 mEq tablet,exte nded release(par t/cryst) [generic] 40 mEq By Mouth 1 time For low potassium 40 mEq 07/18 Inactiv e 2024 16372 31078 1 1 time By Mouth False Potassium chloride ER 20 mEq tablet,exte nded release(par t/cryst) [generic] 40 mEq By Mouth 1 time For low potassium 40 mEq 07/18 Inactiv e 2024 65871 37367 1 1 time By Mouth False Potassium chloride ER 20 mEq tablet,exte nded release [generic] 2 By Mouth 1 time For low potassium 2 07/19 Inactiv e 2024 45090 23811 1 1 time By Mouth False Potassium chloride ER 20 mEq tablet,exte nded release [generic] 2 capsules capsules By Mouth 1 time Please send capsule (2 capsules) For low potassium 2 capsule s 07/20 Inactiv e 2024 21135 53150 1 1 time By Mouth False Potassium chloride ER 20 mEq tablet,exte nded release(par t/cryst) [generic] TAKE (2) TABLETS (40MEQ) BY MOUTH X1 DOSE 07/20 Inactiv e 2024 23890 87943 5 Cefepime 1 gram solution for injection [generic] 1 gram Intramuscular Every 12 hours For Urinary Tract Infection 1 gram 07/21 Inactiv e 2024 70164 00654 4 Every 12 hours Intram uscula r False Cefepime 1 gram solution for injection [generic] 07/21 Inactiv e 2024 59383 37426 4 Cefepime 1 gram solution for injection [generic] 1 gram Intramuscular Every 12 hours For Urinary Tract Infection 1 gram 07/22 Inactiv e 2024 80295 07180 4 Every 12 hours Intram uscula r False Cefepime 1 gram solution for injection [generic] 1 gram Intramuscular Every 12 hours For Urinary Tract Infection 1 gram 07/24 Inactiv e 2024 27270 29852 4 Every 12 hours Intram uscula r False Klor-Con 10 mEq tablet,exte nded release Klor- Con GIVE 2 Capsules daily Do NOT SEND Tablets Requesting Micro K 10 meq capsules For hyponatremia 2 capsule s 2024 00/00 /0000 Active 2024 65214 83740 1 Once daily By Mouth False Cefepime 1 gram solution for injection [generic] 1 gram Intramuscular Every 12 hours For Urinary Tract Infection 1 gram 07/24 Inactiv e 2024 71324 19106 4 Every 12 hours Intram uscula r False Cefepime 1 gram solution for injection [generic] 1 gram Intramuscular Every 12 hours For Urinary Tract Infection 1 gram 07/27 Active 2024 46175 44388 4 Every 12 hours Intram uscula r False Nystatin 100,000 unit/gram topical cream [generic] 100,000 unit Topical As Needed For DX- EXCORIATION 100,000 unit 12/12 Inactiv e 2023 85117 34954 5 Topica l False Vicks Vaporub 4.7 %-1.2 %-2.6 % topical ointment 4.7-1.2-2.6 Topical 3 times a day As Needed For DX- CONGESTION 4.7-1.2 -2.6 12/12 Inactiv e 2023 77623 87833 1 3 times a day Topica l False Ketoconazol e 2 % shampoo [generic] APPLY SHAMPOO TOPICALLY TO SCALP DURING HAIR WASHINGDX: ELVIA DERM OF SCALP For DX- ELVIA DERM OF SCALP 12/12 Inactiv e 2023 79855 79795 4 Topica l False THERA SILICONE SKIN GUARD Topical Twice daily 1 APPLICATION TOPICALLY IN THE MORNING AND AT BEDTIME TO SCROTUM For DX- PREVENTION 2023 0000 0000 Active 2023 Twice daily Topica l False Selenium sulfide 2.5 % lotion [generic] 2.5 % Topical EVERY MONDAY, MONDAY AND MONDAY AFTER SHOWER For DANDRUFF 2.5 % 2023 Active 2023 10278 74237 4 3 times a week Topica l False Nystatin (bulk) 100 million unit powder [generic] 100 million Topical Twice daily as needed For EXOCORATION 100 million 12/20 Inactiv e 2023 30188 34558 1 Twice daily as needed Topica l False Ketoconazol e 2 % shampoo [generic] Once daily APPLY SHAMPOO TOPICALLY TO SCALP DURING HAIR WASHING ON SHOWER DAYS- , , MON For ELVIA DERM OF SCAP 2 % 2023 Active 2023 79421 25012 4 Once daily Topica l False Nystatin 100,000 unit/gram topical cream [generic] 1 mague Topical Twice daily as needed For EXOCORATION 1 mague 06/05 Inactiv e 2023 56236 47202 5 Twice daily as needed Topica l False Nystatin 100,000 unit/gram topical powder [generic] 100,000 unit Topical Twice daily to scrotum with AM and PM care For Scrotal excoriation 100,000 unit 06/05 Inactiv e 2023 51864 46361 5 Twice daily Topica l False Problems [...] adjustment of urinary device 07/21/2023 Active Z79.01 buttermaker (current) use of anticoagulants 07/21 Active N31.9 [...] Temperature SpO2 Blood Sugar Pulse Respirations 216 92112 1 254.10 NI 216 18329 2 79.00 mm[Hg] - Sitting 157.00 mm[Hg] - Sitting 73 NI 254.10 NI 36.30 Tympanic 95.00 % 72.00/ min 16.00/min 64690 216 28756 4 98.80 Tympanic 62009 216 97788 2 78.00 mm[Hg] - Sitting 164.00 mm[Hg] - Sitting 72579 217 47124 3 98.20 Tympanic 41515 217 40353 5 73.00 mm[Hg] - Sitting 159.00 mm[Hg] - Sitting 30233 217 99581 9 98.40 Forehead Scan 46650 218 60338 3 97.90 Tympanic 83126 218 74528 5 77.00 mm[Hg] - Sitting 137.00 mm[Hg] - Sitting 56387 219 73439 0 97.70 Tympanic 33277 219 35178 6 97.60 Tympanic 26681 219 67675 4 76.00 mm[Hg] - Sitting 139.00 mm[Hg] - Sitting 23518 219 61844 4 97.80 Forehead Scan 66685 220 48188 9 97.90 Tympanic 56094 220 71487 9 76.00 mm[Hg] - Sitting 138.00 mm[Hg] - Sitting 14270 220 05284 6 98.10 Tympanic 53166 221 49331 5 67.00 mm[Hg] - Sitting 142.00 mm[Hg] - Sitting 23824 221 61474 8 98.20 Tympanic 74616 221 85793 0 98.30 Tympanic 56152 222 87553 7 98.20 Tympanic 55684 222 29964 8 97.90 Tympanic 94746 223 24667 3 98.20 Tympanic 38708 223 88178 3 98.00 Tympanic 58163 224 43620 0 59.00 mm[Hg] - Sitting 111.00 mm[Hg] - Sitting 98.40 Forehead Scan 95.00 % 56.00/ min 18.00/min 13469 224 76934 9 98.20 Forehead Scan 07278 224 07803 3 97.90 Tympanic 67507 225 63387 4 98.20 Tympanic 69828 225 92957 8 97.50 Forehead Scan 55270 228 01065 0 55.00 mm[Hg] - Sitting 118.00 mm[Hg] - Sitting 98.40 Tympanic 69.00/ min 65467 229 54572 8 78.00 mm[Hg] - Sitting 152.00 mm[Hg] - Sitting 51589 230 87971 0 62.00 mm[Hg] - Sitting 122.00 mm[Hg] - Sitting 20908 231 47348 7 72.00 mm[Hg] - Lying Down 140.00 mm[Hg] - Lying Down 59310 101 77576 3 97.70 Forehead Scan 19793 101 57547 1 254.10 NI 69.00/ min 63846 101 36411 9 72.00 mm[Hg] - Sitting 142.00 mm[Hg] - Sitting 97.70 Tympanic 18.00/min 31390 101 36921 3 72.00 mm[Hg] - Lying Down 142.00 mm[Hg] - Lying Down 78373 102 40675 8 68.00 mm[Hg] - Lying Down 152.00 mm[Hg] - Lying Down 18264 103 20935 5 74.00 mm[Hg] - Sitting 158.00 mm[Hg] - Sitting 82723 104 02000 9 78.00 mm[Hg] - Sitting 144.00 mm[Hg] - Sitting 46020 105 28514 5 68.00 mm[Hg] - Sitting 138.00 mm[Hg] - Sitting 41407 106 89071 1 70.00 mm[Hg] - Sitting 138.00 mm[Hg] - Sitting 60359 107 21845 1 67.00 mm[Hg] - Sitting 142.00 mm[Hg] - Sitting 89572 108 65968 0 74.00 mm[Hg] - Sitting 143.00 mm[Hg] - Sitting 81427 110 91682 6 85.00 mm[Hg] - Sitting 160.00 mm[Hg] - Sitting 97.80 Tympanic 93.00 % 76.00/ min 18.00/min 57231 111 33910 1 83.00 mm[Hg] - Sitting 129.00 mm[Hg] - Sitting 98.60 Tympanic 92.00 % 71.00/ min 18.00/min 14094 111 03222 5 60.00 mm[Hg] - Sitting 114.00 mm[Hg] - Sitting 98.70 Tympanic 92.00 % 76.00/ min 18.00/min 28096 112 65184 4 55.00 mm[Hg] - Sitting 125.00 mm[Hg] - Sitting 98.60 Tympanic 91.00 % 68.00/ min 18.00/min 29363 112 96354 9 75.00 mm[Hg] - Sitting 174.00 mm[Hg] - Sitting 97.70 Tympanic 96.00 % 71.00/ min 18.00/min 52976 113 34190 2 77.00 mm[Hg] - Sitting 139.00 mm[Hg] - Sitting 98.10 Tympanic 97.00 % 81.00/ min 18.00/min 06380 113 82593 4 78.00 mm[Hg] - Sitting 153.00 mm[Hg] - Sitting 98.40 Tympanic 93.00 % 69.00/ min 18.00/min 96947 114 04852 5 76.00 mm[Hg] - Sitting 137.00 mm[Hg] - Sitting 98.10 Tympanic 97.00 % 80.00/ min 18.00/min 44803 114 30235 0 76.00 mm[Hg] - Sitting 145.00 mm[Hg] - Sitting 97.90 Tympanic 98.00 % 73.00/ min 18.00/min 44309 115 21626 3 98.40 Tympanic 72514 115 41287 5 79.00 mm[Hg] - Sitting 143.00 mm[Hg] [...]
--- OUTSIDE RECORDS SUMMARY | 2024-07-26 11:11 | External Medical Summary | Continuity Of Care Document ---
Author Name Unknown Address [address] [place] [address] Organization [facility] () Care Team Providers Care Sales Project Coordinator Name Role Phone DO Pritchett Amy Primary Care Provider [phone] Allergies Allergy Reaction Start Date End Date Status AMINOGLYCOSIDES Active CIPRO Active GENTAMICIN Active NSAIDS (NON-STEROIDAL ANTI-INFLAMMATORY DRUG) 0 Active IBUPROFEN Active QUINOLONES Active VALIUM Active Medications Medication Instructions Dosage Start Date End Date Status Order Date Drug Code Frequency Route of Admin Diagnosis Code Substitutions Allowed Spikevax [id number](1 2y up)(PF) 50 mcg/0.5 mL intramuscul ar suspension [COVID [id number](12 up)(andu)(P F)] 0.5mL Intramuscular 1 time Monitory 15 Minutes post injection for adverse effects; record site/temp For COVID 19 PREVENTION 0.5mL 01/02 Inactiv e 2023 25096 72078 4 1 time Intram uscula r False [facility] - Nurse initials indicate verificatio n that [id number] vaccine was administere d by [facility] jon 1 Intramuscular 1 time ( Indicate vaccine type) For vaccine 1 05/03 Inactiv e 2023 1 time Intram uscula r False Lisinopril 40 mg tablet [generic] TAKE ONE (1) TABLET BY MOUTH IN THE MORNING. For DX- HTN 1 2023 Active 2023 80466 38867 1 Once daily By Mouth False Tizanidine 2 mg tablet [generic] TAKE ONE (1) TABLET BY MOUTH ONCE DAILY For MUSCLE SPASM 1 2023 Active 2023 29646 28398 0 Once daily By Mouth M62.838 False Tamsulosin 0.4 mg capsule [generic] TAKE (1) CAPSULE BY MOUTH AT BEDTIME For SPASMS 1 2023 Active 2023 14973 69433 0 Once daily By Mouth False Aspirin 81 mg tablet Once daily 1 TABLET BY MOUTH IN THE MORNING For DX- CAD DO NOT CRUSH, CHEW OR BREAK 81 mg 06/12 Inactiv e 2023 Once daily By Mouth False Baclofen 20 mg tablet [generic] 20 mg By Mouth 4 times a day For DX- MUSCLE SPASMS 20 mg 12/12 Inactiv e 2023 29628 92494 1 4 times a day By Mouth False Calcium citrate 250 mg tablet Once daily 4 TABLET BY MOUTH For DX- SUPPLEMENT 250 mg calci 12/12 Inactiv e 2023 Once daily By Mouth False Co Q-10 100 mg capsule 100 mg By Mouth Once daily For DX- SUPPLEMENT 100 mg 06/20 Inactiv e 2023 84240 38716 5 Once daily By Mouth False Furosemide 20 mg tablet [generic] 20 mg By Mouth Once daily For DX-CHF 20 mg 12/12 Inactiv e 2023 14939 30360 0 Once daily By Mouth False Gabapentin 300 mg capsule [generic] 300 mg By Mouth 3 times a day For DX- NEUROPATHY 300 mg 12/12 Inactiv e 2023 54493 50161 4 3 times a day By Mouth False Loratadine 10 mg tablet [generic] 10 mg By Mouth Once daily For DX- ALLERGIES 10 mg 2023 Active 2023 91730 12402 1 Once daily By Mouth False Miralax 17 gram/dose oral powder 17 gram/dose By Mouth IN THE MORNING Mix 1 TABLESPOON IN 8 OZ OF FLUID HOLD FOR LOOSE STOOLS For DX- CONSTIPATION 17 gram/do se 12/12 Inactiv e 2023 34991 60242 0 Once daily By Mouth False Paroxetine 30 mg tablet [generic] 30 mg By Mouth Once daily For DX- DEPRESSION 30 mg 2023 00/00 /0000 Active 2023 58367 38348 3 Once daily By Mouth False Potassium citrate ER 15 mEq (1,620 mg) tablet,exte nded release [generic] 15 mEq By Mouth 3 times a day For DX- SUPPLEMENT/DI URETIC USE/ HYPOCITRAUIRA DO NOT CRUSH 15 mEq 12/12 Inactiv e 2023 51622 34086 1 3 times a day By Mouth [...] For DX- DANDRUFF 12/12 Inactiv e 2023 93715 58193 4 3 times a week Topica l False Acetaminoph en 325 mg tablet [generic] TAKE 2 TABS (650MG) BY MOUTH EVERY 4 HOURS NEEDED FOR TEMP >100 NOT TO EXCEED 3GM/24HRS TAKE 2 TABS (650MG) BY MOUTH EVERY 4 HOURS NEEDED FOR TEMP >100 NOT TO EXCEED 3GM/24HRS For DX-FEVER 2 12/12 Inactiv e 2023 63729 55104 0 By Mouth False MILK OF MAGNESIA ADMINISTER 30 ML BY MOUTH ONCE DAILY NEEDED FOR CONSTIPATION X3 DAYS WITH NO BM. For DX- CONSTIPATION 30ML 12/12 Inactiv e 2023 31780 32829 9 By Mouth False Enema Disposable 19 gram-7 gram/118 mL ADMINISTER ONE ENEMA RECTALLY ONCE DAILY NEEDED FOR CONSTIPATION ON DAY 6 OF NO BM For DX- CONSTIPATION 12/12 Inactiv e 2023 71376 98242 1 Rectal False TUMS EXTRA STR 750MG TAKE (1) TABLET BY MOUTH THREE TIMES DAILY NEEDED FOR INDIGESTION For DX- INDIGESTION 1 12/12 Inactiv e 2023 01655 92099 8 By Mouth False Vitamin D3 25 [...] CONSTIPATION 10 mg 12/12 Inactiv e 2023 87403 97282 1 Rectal False Melatonin 3 mg tablet [generic] 3 mg By Mouth As Needed For DX-INSOMMIA 3 mg 12/12 Inactiv e 2023 27958 12762 8 By Mouth False Hydrocortis one 1 % topical cream [generic] 1 % Topical As Needed For DX- PAIN 1 % 12/12 Inactiv e 2023 70852 40650 1 Topica l False HYDROCORTIS ONE/PARMOXI NE [...] 5-10 50 mg 12/20 Inactiv e 2023 17664 90227 0 Every 4 hours as needed By Mouth False Tylenol 325 mg tablet 325 mg By Mouth Every 4 hours as needed For DX- PAIN PRN FOR MILD PAIN, DO NOT EXCEED 3000MG APAP/24 HOURS 325 mg 12/20 Inactiv e 2023 95220 55589 0 Every 4 hours as needed By Mouth False Baclofen 20 mg tablet [generic] 20 mg By Mouth 4 times a day For MUSCLE SPASMS 20 mg 12/20 Inactiv e 2023 46341 03274 1 4 times a day By Mouth False Calcium citrate 250 mg tablet [generic] Once daily TAKE 4 TABLETS (1000MG) BY MOUTH For SUPPLEMENT 1000 MG 06/26 Inactiv e 2023 45674 71855 6 Once daily By Mouth False Dulcolax (bisacodyl) 10 mg rectal suppository 10 mg Rectal Once daily For CONSTIPATION *MAY HOLD FOR LOOSE STOOLS* 10 mg 2023 Active 2023 16411 82833 1 Once daily Rectal False Gabapentin 300 mg capsule [generic] 300 mg By Mouth 3 times a day For NEUROPATHY 300 mg 2023 Active 2023 92148 27976 4 3 times a day By Mouth False Potassium citrate ER 15 mEq (1,620 mg) tablet,exte nded release [generic] 15 mEq By Mouth 3 times a day For SUPPLEMENT/DI URETIC USE/HYPOCITRA URIA 15 mEq 06/11 Inactiv e 2023 28412 52104 1 3 times a day By Mouth False Potassium chloride ER 20 mEq tablet,exte nded release [generic] 20 mEq By Mouth 3 times a day *DO NOT CRUSH, CHEW OR BREAK* For SUPPLEMENT 20 mEq 12/18 Inactiv e 2023 93976 84538 1 3 times a day By Mouth False Tizanidine 4 mg tablet [generic] 4 mg By Mouth Once daily For MUSCLE SPASMS 4 mg 2023 Active 2023 94277 98354 0 Once daily By Mouth False Tylenol 325 mg tablet 2 tabs By Mouth Every 4 hours as needed For Fever >100 DO NOT EXCEED 3000 MG APAP/24 Hours 2 tabs 12/20 Inactiv e 2023 84236 52922 0 Every 4 hours as needed By Mouth False Dulcolax (bisacodyl) 10 mg rectal suppository Daily as needed For Constipation 1 sup 12/20 Inactiv e 2023 98957 28925 1 Daily as needed Rectal False Fleet Enema 19 gram-7 gram/118 mL 1 Rectal Daily as neededFor Constipation 1 12/20 Inactiv e 2023 96917 73228 6 Daily as needed Rectal False Milk of Magnesia 400 mg/5 mL oral suspension [Magnesium hydroxide] PRN 30ml By Mouth Daily as needed for constipation one time daily if no BM, on day 4 of no BM (PRN refer to instructions) For Constipation For Constipatioin 30ml 12/20 Inactiv e 2023 04344 04911 6 1 time By Mouth False Problems Code Description Start [...] adjustment of urinary device 07/21/2023 Active Z79.01 [facility] (current) use of anticoagulants 07/21 Active N31.9 [...] weight Temperature SpO2 Blood Sugar Pulse Respirations 68276 216 92038 1 254.10 [place] [address] 216 83400 2 79.00 mm[Hg] - Sitting 157.00 mm[Hg] - Sitting 73 NI 254.10 NI 36.30 Tympanic 95.00 % 72.00/ min 16.00/min 16842 216 51169 4 98.80 Tympanic 11229 216 52833 2 78.00 mm[Hg] - Sitting 164.00 mm[Hg] - Sitting 01682 217 36143 3 98.20 Tympanic 66640 217 73671 5 73.00 mm[Hg] - Sitting 159.00 mm[Hg] - Sitting 91706 217 23600 9 98.40 Forehead Scan 45404 218 04381 3 97.90 Tympanic 41445 218 64873 5 77.00 mm[Hg] - Sitting 137.00 mm[Hg] - Sitting 06003 219 70623 0 97.70 Tympanic 81913 219 13488 6 97.60 Tympanic 72728 219 82670 4 76.00 mm[Hg] - Sitting 139.00 mm[Hg] - Sitting 75747 219 26603 4 97.80 Forehead Scan 13937 220 98046 9 97.90 Tympanic 61064 220 57537 9 76.00 mm[Hg] - Sitting 138.00 mm[Hg] - Sitting 74087 220 82873 6 98.10 Tympanic 64433 221 85375 5 67.00 mm[Hg] - Sitting 142.00 mm[Hg] - Sitting 36070 221 68252 8 98.20 Tympanic 31590 221 84837 0 98.30 Tympanic 93015 222 22384 7 98.20 Tympanic 52721 222 38201 8 97.90 Tympanic 84004 223 33731 3 98.20 Tympanic 43194 223 77923 3 98.00 Tympanic 16023 224 85538 0 59.00 mm[Hg] - Sitting 111.00 mm[Hg] - Sitting 98.40 Forehead Scan 95.00 % 56.00/ min 18.00/min 06209 224 18014 9 98.20 Forehead Scan 92322 224 41505 3 97.90 Tympanic 02981 225 86035 4 98.20 Tympanic 70717 225 40371 8 97.50 Forehead Scan 10479 228 14683 0 55.00 mm[Hg] - Sitting 118.00 mm[Hg] - Sitting 98.40 Tympanic 69.00/ min 23344 229 30614 8 78.00 mm[Hg] - Sitting 152.00 mm[Hg] - Sitting 82608 230 51256 0 62.00 mm[Hg] - Sitting 122.00 mm[Hg] - Sitting 42281 231 17303 7 72.00 mm[Hg] - Lying Down 140.00 mm[Hg] - Lying Down 23301 101 42930 3 97.70 Forehead Scan 76382 101 25283 1 254.10 NI 69.00/ min 60616 101 51065 9 72.00 mm[Hg] - Sitting 142.00 mm[Hg] - Sitting 97.70 Tympanic 18.00/min 16196 101 88419 3 72.00 mm[Hg] - Lying Down 142.00 mm[Hg] - Lying Down 55608 102 94632 8 68.00 mm[Hg] - Lying Down 152.00 mm[Hg] - Lying Down 37380 103 35966 5 74.00 mm[Hg] - Sitting 158.00 mm[Hg] - Sitting 79197 104 24444 9 78.00 mm[Hg] - Sitting 144.00 mm[Hg] - Sitting 61946 105 34506 5 68.00 mm[Hg] - Sitting 138.00 mm[Hg] - Sitting 96858 106 98967 1 70.00 mm[Hg] - Sitting 138.00 mm[Hg] - Sitting 64489 107 13303 1 67.00 mm[Hg] - Sitting 142.00 mm[Hg] - Sitting 53131 108 37186 0 74.00 mm[Hg] - Sitting 143.00 mm[Hg] - Sitting 44403 110 15021 6 85.00 mm[Hg] - Sitting 160.00 mm[Hg] - Sitting 97.80 Tympanic 93.00 % 76.00/ min 18.00/min 05031 111 64725 1 83.00 mm[Hg] - Sitting 129.00 mm[Hg] - Sitting 98.60 Tympanic 92.00 % 71.00/ min 18.00/min 64433 111 46314 5 60.00 mm[Hg] - Sitting 114.00 mm[Hg] - Sitting 98.70 Tympanic 92.00 % 76.00/ min 18.00/min 61940 112 11139 4 55.00 mm[Hg] - Sitting 125.00 mm[Hg] - Sitting 98.60 Tympanic 91.00 % 68.00/ min 18.00/min 80249 112 80377 9 75.00 mm[Hg] - Sitting 174.00 mm[Hg] - Sitting 97.70 Tympanic 96.00 % 71.00/ min 18.00/min 46280 113 04034 2 77.00 mm[Hg] - Sitting 139.00 mm[Hg] - Sitting 98.10 Tympanic 97.00 % 81.00/ min 18.00/min 43877 113 25411 4 78.00 mm[Hg] - Sitting 153.00 mm[Hg] - Sitting 98.40 Tympanic 93.00 % 69.00/ min 18.00/min 15560 114 43834 5 76.00 mm[Hg] - Sitting 137.00 mm[Hg] [...]
--- OUTSIDE RECORDS SUMMARY | 2024-07-26 11:11 | External Medical Summary | Continuity Of Care Document ---
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 Role Phone DO Pritchett Amy Primary Care Provider [phone] Allergies Allergy Reaction Start Date End Date Status AMINOGLYCOSIDES Active CIPRO Active GENTAMICIN Active NSAIDS (NON-STEROIDAL ANTI-INFLAMMATORY DRUG) 0 Active IBUPROFEN Active QUINOLONES Active VALIUM Active Medications Medication Instructions Dosage Start Date End Date Status Order Date Drug Code Frequency Route of Admin Diagnosis Code Substitutions Allowed Spikevax [id number](1 2y up)(PF) 50 mcg/0.5 mL intramuscul ar suspension [COVID [id number](12 up)(andu)(P F)] 0.5mL Intramuscular 1 time Monitory 15 Minutes post injection for adverse effects; record site/temp For COVID 19 PREVENTION 0.5mL 01/02 Inactiv e 2023 05126 72738 4 1 time Intram uscula r False [facility] - Nurse initials indicate verificatio n that [id number] vaccine was administere d by [facility] jon 1 Intramuscular 1 time ( Indicate vaccine type) For vaccine 1 05/03 Inactiv e 2023 1 time Intram uscula r False Lisinopril 40 mg tablet [generic] TAKE ONE (1) TABLET BY MOUTH IN THE MORNING. For DX- HTN 1 2023 Active 2023 66238 87302 1 Once daily By Mouth False Tizanidine 2 mg tablet [generic] TAKE ONE (1) TABLET BY MOUTH ONCE DAILY For MUSCLE SPASM 1 2023 Active 2023 38358 08207 0 Once daily By Mouth M62.838 False Tamsulosin 0.4 mg capsule [generic] TAKE (1) CAPSULE BY MOUTH AT BEDTIME For SPASMS 1 2023 Active 2023 33103 57887 0 Once daily By Mouth False Aspirin 81 mg tablet Once daily 1 TABLET BY MOUTH IN THE MORNING For DX- CAD DO NOT CRUSH, CHEW OR BREAK 81 mg 06/12 Inactiv e 2023 Once daily By Mouth False Baclofen 20 mg tablet [generic] 20 mg By Mouth 4 times a day For DX- MUSCLE SPASMS 20 mg 12/12 Inactiv e 2023 67689 95251 1 4 times a day By Mouth False Calcium citrate 250 mg tablet Once daily 4 TABLET BY MOUTH For DX- SUPPLEMENT 250 mg calci 12/12 Inactiv e 2023 Once daily By Mouth False Co Q-10 100 mg capsule 100 mg By Mouth Once daily For DX- SUPPLEMENT 100 mg 06/20 Inactiv e 2023 23718 40120 5 Once daily By Mouth False Furosemide 20 mg tablet [generic] 20 mg By Mouth Once daily For DX-CHF 20 mg 12/12 Inactiv e 2023 35671 80559 0 Once daily By Mouth False Gabapentin 300 mg capsule [generic] 300 mg By Mouth 3 times a day For DX- NEUROPATHY 300 mg 12/12 Inactiv e 2023 30555 63931 4 3 times a day By Mouth False Loratadine 10 mg tablet [generic] 10 mg By Mouth Once daily For DX- ALLERGIES 10 mg 2023 Active 2023 92645 84189 1 Once daily By Mouth False Miralax 17 gram/dose oral powder 17 gram/dose By Mouth IN THE MORNING Mix 1 TABLESPOON IN 8 OZ OF FLUID HOLD FOR LOOSE STOOLS For DX- CONSTIPATION 17 gram/do se 12/12 Inactiv e 2023 78979 75850 0 Once daily By Mouth False Paroxetine 30 mg tablet [generic] 30 mg By Mouth Once daily For DX- DEPRESSION 30 mg 2023 00/00 /0000 Active 2023 03320 26282 3 Once daily By Mouth False Potassium citrate ER 15 mEq (1,620 mg) tablet,exte nded release [generic] 15 mEq By Mouth 3 times a day For DX- SUPPLEMENT/DI URETIC USE/ HYPOCITRAUIRA DO NOT CRUSH 15 mEq 12/12 Inactiv e 2023 70409 04619 1 3 times a day By Mouth [...] For DX- DANDRUFF 12/12 Inactiv e 2023 36927 68165 4 3 times a week Topica l False Acetaminoph en 325 mg tablet [generic] TAKE 2 TABS (650MG) BY MOUTH EVERY 4 HOURS NEEDED FOR TEMP >100 NOT TO EXCEED 3GM/24HRS TAKE 2 TABS (650MG) BY MOUTH EVERY 4 HOURS NEEDED FOR TEMP >100 NOT TO EXCEED 3GM/24HRS For DX-FEVER 2 12/12 Inactiv e 2023 91397 27746 0 By Mouth False MILK OF MAGNESIA ADMINISTER 30 ML BY MOUTH ONCE DAILY NEEDED FOR CONSTIPATION X3 DAYS WITH NO BM. For DX- CONSTIPATION 30ML 12/12 Inactiv e 2023 06505 74104 9 By Mouth False Enema Disposable 19 gram-7 gram/118 mL ADMINISTER ONE ENEMA RECTALLY ONCE DAILY NEEDED FOR CONSTIPATION ON DAY 6 OF NO BM For DX- CONSTIPATION 12/12 Inactiv e 2023 31236 11313 1 Rectal False TUMS EXTRA STR 750MG TAKE (1) TABLET BY MOUTH THREE TIMES DAILY NEEDED FOR INDIGESTION For DX- INDIGESTION 1 12/12 Inactiv e 2023 82955 72555 8 By Mouth False Vitamin D3 25 [...] CONSTIPATION 10 mg 12/12 Inactiv e 2023 52829 92051 1 Rectal False Melatonin 3 mg tablet [generic] 3 mg By Mouth As Needed For DX-INSOMMIA 3 mg 12/12 Inactiv e 2023 54673 99212 8 By Mouth False Hydrocortis one 1 % topical cream [generic] 1 % Topical As Needed For DX- PAIN 1 % 12/12 Inactiv e 2023 84579 42336 1 Topica l False HYDROCORTIS ONE/PARMOXI NE [...] 5-10 50 mg 12/20 Inactiv e 2023 99737 95836 0 Every 4 hours as needed By Mouth False Tylenol 325 mg tablet 325 mg By Mouth Every 4 hours as needed For DX- PAIN PRN FOR MILD PAIN, DO NOT EXCEED 3000MG APAP/24 HOURS 325 mg 12/20 Inactiv e 2023 58871 98083 0 Every 4 hours as needed By Mouth False Baclofen 20 mg tablet [generic] 20 mg By Mouth 4 times a day For MUSCLE SPASMS 20 mg 12/20 Inactiv e 2023 67442 60465 1 4 times a day By Mouth False Calcium citrate 250 mg tablet [generic] Once daily TAKE 4 TABLETS (1000MG) BY MOUTH For SUPPLEMENT 1000 MG 06/26 Inactiv e 2023 27715 67281 6 Once daily By Mouth False Dulcolax (bisacodyl) 10 mg rectal suppository 10 mg Rectal Once daily For CONSTIPATION *MAY HOLD FOR LOOSE STOOLS* 10 mg 2023 Active 2023 47044 65472 1 Once daily Rectal False Gabapentin 300 mg capsule [generic] 300 mg By Mouth 3 times a day For NEUROPATHY 300 mg 2023 Active 2023 20658 85545 4 3 times a day By Mouth False Potassium citrate ER 15 mEq (1,620 mg) tablet,exte nded release [generic] 15 mEq By Mouth 3 times a day For SUPPLEMENT/DI URETIC USE/HYPOCITRA URIA 15 mEq 06/11 Inactiv e 2023 15652 91534 1 3 times a day By Mouth False Potassium chloride ER 20 mEq tablet,exte nded release [generic] 20 mEq By Mouth 3 times a day *DO NOT CRUSH, CHEW OR BREAK* For SUPPLEMENT 20 mEq 12/18 Inactiv e 2023 81839 23709 1 3 times a day By Mouth False Tizanidine 4 mg tablet [generic] 4 mg By Mouth Once daily For MUSCLE SPASMS 4 mg 2023 Active 2023 51225 54170 0 Once daily By Mouth False Tylenol 325 mg tablet 2 tabs By Mouth Every 4 hours as needed For Fever >100 DO NOT EXCEED 3000 MG APAP/24 Hours 2 tabs 12/20 Inactiv e 2023 36782 39956 0 Every 4 hours as needed By Mouth False Dulcolax (bisacodyl) 10 mg rectal suppository Daily as needed For Constipation 1 sup 12/20 Inactiv e 2023 07848 14316 1 Daily as needed Rectal False Fleet Enema 19 gram-7 gram/118 mL 1 Rectal Daily as neededFor Constipation 1 12/20 Inactiv e 2023 12801 63013 6 Daily as needed Rectal False Milk of Magnesia 400 mg/5 mL oral suspension [Magnesium hydroxide] PRN 30ml By Mouth Daily as needed for constipation one time daily if no BM, on day 4 of no BM (PRN refer to instructions) For Constipation For Constipatioin 30ml 12/20 Inactiv e 2023 86045 35042 6 1 time By Mouth False Melatonin 3 mg tablet [generic] 3 mg By Mouth Once daily As Needed For INSOMNIA 3 mg 12/20 Inactiv e 2023 13614 86776 8 Once daily By Mouth False Hydrocortis one 1 % topical cream [generic] 1 % Rectal Four times daily as needed For hemorroid pain 1 % 12/20 Inactiv e 2023 86078 28258 1 Four times daily as needed Rectal False X-STGH ANTACID 750MG CHEW TAKE (1) TABLET BY MOUTH THREE TIMES DAILY NEEDED FOR INDIGESTION 12/20 Inactiv e 2023 88542 96793 4 Three times daily as needed Saline Mist 0.65 % nasal spray aerosol 0.65 % Nares Four times daily as needed For DRYNESS 0.65 % 12/20 Inactiv e 2023 37479 55481 8 Four times daily as needed Nares False Vicks Vaporub 4.7 %-1.2 %-2.6 % topical ointment Apply topically to chest Three times daily as needed For CONGESTION 4.7-1.2 -2.6 12/20 Inactiv e 2023 87388 07458 1 Three times daily as needed Topica l False VITAMIN D3 2000U CAP TAKE ONE (1) CAPSULE BY MOUTH DAILY* DO NOT CRUSH, CHEW OR BREAK* For Supplement 1 capsule 12/19 Inactiv e 2023 15916 10844 0 Once daily By Mouth False Potassium chloride ER 20 mEq tablet,exte nded release(par t/cryst) [generic] TAKE (1) TABLET BY MOUTH THREE TIMES DAILY (MORNING, AFTERNOON, EVENING)*DO NOT CRUSH, CHEW, OR BREAK* For SUPPLEMENT 20 MEQ 06/11 Inactiv e 2023 58279 34287 5 3 times a day By Mouth False Aspirin 81 mg tablet,camron yed release [generic] TAKE ONE (1) TABLET BY MOUTH ONCE DAILY*DO NOT CRUSH, CHEW OR BREAK* For CAD 81 MG 12/22 Inactiv e 2023 47547 64605 0 Once daily By Mouth False Furosemide 20 mg tablet [generic] TAKE 1 AND 1/2 TABLETS (30MG) BY MOUTH ONCE DAILY For CHF 30mg 2023 Active 2023 70350 51432 1 Once daily By Mouth False Polyethylen e glycol 3350 17 gram/dose oral powder [generic] MIX 17 GRAMS (1 CAPFUL) IN 60Z OF LIQUID AND DRINK BY MOUTH ONCE DAILY *HOLD FOR LOOSE STOOLS* For constipation 17 g 2023 Active 2023 95693 70284 3 Once daily By Mouth False Vitamin D3 50 mcg (2,000 unit) capsule Once daily TAKE ONE (1) CAPSULE BY MOUTH DAILY* DO NOT CRUSH, CHEW OR BREAK* For Supplement 1 capsule 02/07 Inactiv e 2023 28526 39351 2 Once daily By Mouth False Fleet Enema 19 gram-7 gram/118 mL 1 Rectal Daily as neededFor Constipation 1 2023 0000 Active 2023 96815 32772 6 Daily as needed Rectal False Tums E-X 300 mg (as calcium carbonate 750 mg) chewable tablet 1 tab By Mouth TAKE (1) TABLET BY MOUTH THREE TIMES DAILY NEEDED FOR INDIGESTION 1 tab 202300 /0000 Active 2023 38855 27867 1 Three times daily as needed By Mouth False Tylenol 325 mg tablet 2 tabs By Mouth Every 4 hours as needed For Fever >100 DO NOT EXCEED 3000 MG APAP/24 Hours 2 tabs 202300 /0000 Active 2023 40699 53632 0 Every 4 hours as needed By Mouth False Vicks Vaporub 4.7 %-1.2 %-2.6 % topical ointment Apply topically to chest Three times daily as needed For CONGESTION topical 202300 Active 2023 63688 89211 1 Three times daily as needed Topica l False Tylenol 325 mg tablet 2 tabs By Mouth Every 4 hours as needed For DX- PAIN PRN FOR MILD PAIN, DO NOT EXCEED 3000MG APAP/24 HOURS 2 tabs 202300 Active 2023 62629 24222 0 Every 4 hours as needed By Mouth False Tramadol 50 mg tablet [generic] 1 tab By Mouth Every 4 hours as needed For DX- PAIN 5-10 1 tab 03/10 Inactiv e 2023 43756 48541 0 Every 4 hours as needed By Mouth False Saline Mist 0.65 % nasal spray aerosol 2 sprays Nares Four times daily as needed For DRYNESS 2 sprays 202300 / Active 2023 70641 98827 8 Four times daily as needed Nares False Dulcolax (bisacodyl) 10 mg rectal suppository Daily as needed For Constipation 1 sup 202300 / Active 2023 47885 14887 1 Daily as needed Rectal False Hydrocortis one-pramoxi ne 1 %-1 % rectal cream [generic] 1 mague Rectal Four times daily as needed For hemorroid pain 1 mague 202300 /0000 Active 2023 86889 90793 4 Four times daily as needed Rectal False Melatonin 3 mg tablet [generic] 1 tab By Mouth At bedtime as needed For INSOMNIA 1 tab 12/24 Inactiv e 2023 05785 91962 8 At bedtime as needed By Mouth False Milk of Magnesia 400 mg/5 mL oral suspension 30ml By Mouth Daily as needed Daily as needed for constipation one time daily if no BM, on day 4 of no BM (PRN refer to instructions) For Constipation For Constipatioin 30ml 2023 Active 2023 81084 62571 2 Daily as needed By Mouth False Baclofen 20 mg tablet [generic] 20 mg By Mouth 4 times a day For MUSCLE SPASMS 20 mg 2023 Active 2023 57475 90675 1 4 times a day By Mouth False Melatonin 3 mg tablet [generic] 1 tab By Mouth At bedtime as needed For INSOMNIA 1 tab 2023 Active 2023 68707 01103 8 At bedtime as needed By Mouth False Bactrim DS 800 mg-160 mg tablet 1 tab By Mouth Twice daily For URINARY TRACT INFECTION, SITE NOT SPECIFIED 1 tab 01/06 Inactiv e 2023 18593 64115 1 Twice daily By Mouth N39.0 False Cefdinir 300 mg capsule [generic] 300 mg By Mouth Twice daily For UTI 300 mg 01/07 Inactiv e 2023 47724 19442 0 Twice daily By Mouth False Cefdinir 300 mg capsule [generic] 300 mg By Mouth Twice daily For UTI 300 mg 01/17 Inactiv e 2023 47915 65197 0 Twice daily By Mouth False Zyrtec 10 mg tablet 10 mg By Mouth Once daily For sinus congestion 10 mg 01/22 Inactiv e 2023 38078 56870 0 Once daily By Mouth False Tobramycin 0.3 %-dexametha sone 0.1 % eye drops,suspe nsion [generic] 0.3-0.1 % Left Eye 4 times a day For eye infection 0.3-0.1 % 02/05 Inactiv e 2023 21991 93031 5 4 times a day Left Eye False Fluconazole 150 mg tablet [generic] 150 mg By Mouth 1 time For yeast infection 150 mg 02/15 Inactiv e 2023 37463 83119 2 1 time By Mouth False Tramadol 50 mg tablet [generic] 1 tab By Mouth Every 4 hours as needed For DX- PAIN 5-10 1 tab 2023 00/00 /0000 Active 2023 48572 71758 0 Every 4 hours as needed By Mouth False Tobramycin 0.3 %-dexametha sone 0.1 % eye drops,suspe nsion [generic] 1 drop Left Eye 4 times a day For Inflammation of left eye 1 drop 05/08 Inactiv e 2023 69935 77810 5 4 times a day Left Eye False Voltaren Arthritis Pain 1 % topical gel 2 gm Topical Twice daily to rigth shoulder for 2 weeks For pain 2 gm 05/08 Inactiv e 2023 83261 27318 1 Twice daily Topica l False Chlorthalid one 25 mg tablet [generic] 12.5mg By Mouth Once daily For HTN 12.5mg 05/06 Inactiv e 2023 11018 06208 0 Once daily By Mouth False Chlorthalid one 25 mg tablet [generic] 12.5mg By Mouth Once daily For HTN 12.5mg 05/07 Inactiv e 2023 33010 00718 0 Once daily By Mouth False Chlorthalid one 25 mg tablet [generic] 05/07 Inactiv e 2023 52998 83549 0 Chlorthalid one 25 mg tablet [generic] 12.5mg By Mouth Once daily For HTN 12.5mg 06/26 Inactiv e 2023 49450 46837 0 Once daily By Mouth False Norvasc 5 mg tablet 5mg By Mouth Once daily, hold medication if systolic is less than 90 For HYPERTENSIVE HEART DISEASE WITHOUT HEART FAILURE 5mg 06/03 Inactiv e 2023 28870 90050 1 Once daily By Mouth I11.9 False Norvasc 5 mg tablet 5mg By Mouth Once daily, hold medication if systolic is less than 90 For HYPERTENSIVE HEART DISEASE WITHOUT HEART FAILURE 5mg 06/03 Inactiv e 2023 15088 56549 1 Once daily By Mouth I11.9 False Norvasc 5 mg tablet 5mg By Mouth Once daily, hold medication if systolic is less than 90 For HYPERTENSIVE HEART DISEASE WITHOUT HEART FAILURE 5mg 06/26 Inactiv e 2023 59702 23870 1 Once daily By Mouth I11.9 False [...] 10 mg 2023 00/00 /0000 Active 2023 28755 32741 1 Once daily By Mouth False DISCONTINUE [...] CAD 81 mg 06/14 Inactiv e 2023 67362 85336 9 Once daily By Mouth False Aspirin 81 mg tablet,camron yed release [generic] 06/14 Inactiv e 2023 74103 68243 9 Aspirin 81 mg tablet,camron yed release [generic] 81 mg By Mouth Once daily Do not crush, chew, or break For CAD 81 mg 06/154 Inactiv e 2023 26059 58071 9 Once daily By Mouth False Cefpodoxime 200 mg tablet [generic] 200mg By Mouth Twice daily For UTI 200mg 07/04 Inactiv e 2023 34531 92507 0 Twice daily By Mouth False Calcium citrate 250 mg tablet [generic] 06/26 Inactiv e 2023 49319 40708 6 Calcium citrate 250 mg tablet [generic] Once daily TAKE 4 TABLETS (1000MG) BY MOUTH For SUPPLEMENT 500 MG 2023 Active 2023 60250 68905 6 Once daily By Mouth False Norvasc 5 mg tablet 7.5 mg By Mouth Once daily Hold medication if SBP <90 For HYPERTENSIVE HEART DISEASE WITHOUT HEART FAILURE 7.5 mg 06/30 Inactiv e 2023 64334 33688 1 Once daily By Mouth I11.9 False Norvasc 5 mg tablet 7.5 mg By Mouth Once daily Hold medication if SBP <90 For HYPERTENSIVE HEART DISEASE WITHOUT HEART FAILURE 7.5 mg 07/06 Inactiv e 2023 46686 55291 1 Once daily By Mouth I11.9 False Simethicone 125 mg capsule [generic] 2 capule By Mouth Twice daily as needed For bloating/gas pain 2 capule 2023 Active 2023 77270 29640 0 Twice daily as needed By Mouth False Cepacol Sore Throat (benzocaine -menthol) 15 mg-2.6 mg lozenges 2 lozenges By Mouth Every 6 hours as needed For sore throat 2 lozenge s 2023 Active 2023 73292 18428 6 Every 6 hours as needed By Mouth False Cefepime 1 gram solution for injection [generic] 1g Intramuscular Every 12 hours 1g intramuscular ly ever 12 hours For UTI 1g 07/06 Inactiv e 2023 06779 14677 4 Every 12 hours Intram uscula r False Cefepime 1 gram solution for injection [generic] 07/06 Inactiv e 2023 01612 14169 4 Cefepime 1 gram solution for injection [generic] 1g Intramuscular Every 12 hours 1g intramuscular ly ever 12 hours For UTI Reconstitute with 2.4 ML of NSS. 1g 07/08 Inactiv e 2023 52519 45827 4 Every 12 hours Intram uscula r False Norvasc 5 mg tablet 07/06 Inactiv e 2023 73647 97728 1 I11.9 Norvasc 5 mg tablet 7.5 mg By Mouth Once daily Hold medication if SBP <90 For HYPERTENSIVE HEART DISEASE WITHOUT HEART FAILURE 7.5 mg 07/18 Inactiv e 2023 56591 96390 1 Once daily By Mouth I11.9 False Cefepime 1 gram solution for injection [generic] 07/08 Inactiv e 2023 78834 59500 4 Cefepime 1 gram solution for injection [generic] 1g Intramuscular Every 12 hours 1g intramuscular ly ever 12 hours For UTI Reconstitute with 2.4 ML of NSS. 1g 07/08 Inactiv e 2023 74411 48728 4 Every 12 hours Intram uscula r False Cefepime 1 gram solution for injection [generic] 07/08 Inactiv e 2023 35467 27213 4 Cefepime 1 gram solution for injection [generic] 1g Intramuscular Every 12 hours 1g intramuscular ly ever 12 hours For UTI Reconstitute with 2.4 ML of NSS. 1g 07/11 Inactiv e 2023 66248 76589 4 Every 12 hours Intram uscula r False Fleet Enema 19 gram-7 gram/118 mL 1 Rectal 1 time For constipation 1 07/16 Inactiv e 2024 49514 39416 6 1 time Rectal False Fleet Enema 19 gram-7 gram/118 mL 1 Rectal 1 time For constipation 1 07/17 Inactiv e 2024 78223 89187 6 1 time Rectal False Norvasc 5 mg tablet 7.5 mg By Mouth Once daily For HYPERTENSIVE HEART DISEASE WITHOUT HEART FAILURE 7.5 mg 2024 00/00 /0000 Active 2024 11990 01700 1 Once daily By Mouth I11.9 False Potassium chloride ER 20 mEq tablet,exte nded release(par t/cryst) [generic] 40 mEq By Mouth 1 time For low potassium prior to surgery 40 mEq 07/18 Inactiv e 2024 22528 07022 1 1 time By Mouth False Potassium chloride ER 20 mEq tablet,exte nded release(par t/cryst) [generic] 40 mEq By Mouth 1 time For low potassium prior to surgery 40 mEq 07/18 Inactiv e 2024 02768 75830 1 1 time By Mouth False Potassium chloride ER 20 mEq tablet,exte nded release(par t/cryst) [generic] 40 mEq By Mouth 1 time For low potassium 40 mEq 07/18 Inactiv e 2024 11825 35766 1 1 time By Mouth False Potassium chloride ER 20 mEq tablet,exte nded release(par t/cryst) [generic] 40 mEq By Mouth 1 time For low potassium 40 mEq 07/18 Inactiv e 2024 99140 13544 1 1 time By Mouth False Potassium chloride ER 20 mEq tablet,exte nded release [generic] 2 By Mouth 1 time For low potassium 2 07/19 Inactiv e 2024 62069 23171 1 1 time By Mouth False Potassium chloride ER 20 mEq tablet,exte nded release [generic] 2 capsules capsules By Mouth 1 time Please send capsule (2 capsules) For low potassium 2 capsule s 07/20 Inactiv e 2024 18418 53927 1 1 time By Mouth False Potassium chloride ER 20 mEq tablet,exte nded release(par t/cryst) [generic] TAKE (2) TABLETS (40MEQ) BY MOUTH X1 DOSE 07/20 Inactiv e 2024 68676 72261 5 Cefepime 1 gram solution for injection [generic] 1 gram Intramuscular Every 12 hours For Urinary Tract Infection 1 gram 07/21 Inactiv e 2024 73454 49702 4 Every 12 hours Intram uscula r False Cefepime 1 gram solution for injection [generic] 07/21 Inactiv e 2024 49311 23470 4 Cefepime 1 gram solution for injection [generic] 1 gram Intramuscular Every 12 hours For Urinary Tract Infection 1 gram 07/22 Inactiv e 2024 90897 23366 4 Every 12 hours Intram uscula r False Cefepime 1 gram solution for injection [generic] 1 gram Intramuscular Every 12 hours For Urinary Tract Infection 1 gram 08/06 Active 2024 87516 92061 4 Every 12 hours Intram uscula r False Nystatin 100,000 unit/gram topical cream [generic] 100,000 unit Topical As Needed For DX- EXCORIATION 100,000 unit 12/12 Inactiv e 2023 10774 35585 5 Topica l False Vicks Vaporub 4.7 %-1.2 %-2.6 % topical ointment 4.7-1.2-2.6 Topical 3 times a day As Needed For DX- CONGESTION 4.7-1.2 -2.6 12/12 Inactiv e 2023 25138 58928 1 3 times a day Topica l False Ketoconazol e 2 % shampoo [generic] APPLY SHAMPOO TOPICALLY TO SCALP DURING HAIR WASHINGDX: ELVIA DERM OF SCALP For DX- ELVIA DERM OF SCALP 12/12 Inactiv e 2023 16931 90593 4 Topica l False THERA SILICONE SKIN GUARD Topical Twice daily 1 APPLICATION TOPICALLY IN THE MORNING AND AT BEDTIME TO SCROTUM For DX- PREVENTION 2023 00/00 /0000 Active 2023 Twice daily Topica l False Selenium sulfide 2.5 % lotion [generic] 2.5 % Topical EVERY MONDAY, MONDAY AND MONDAY AFTER SHOWER For DANDRUFF 2.5 % 2023 Active 2023 93646 88976 4 3 times a week Topica l False Nystatin (bulk) 100 million unit powder [generic] 100 million Topical Twice daily as needed For EXOCORATION 100 million 12/20 Inactiv e 2023 37761 77297 1 Twice daily as needed Topica l False Ketoconazol e 2 % shampoo [generic] Once daily APPLY SHAMPOO TOPICALLY TO SCALP DURING HAIR WASHING ON SHOWER DAYS- , , SAT For ELVIA DERM OF SCAP 2 % 2023 Active 2023 18554 23786 4 Once daily Topica l False Nystatin 100,000 unit/gram topical cream [generic] 1 mague Topical Twice daily as needed For EXOCORATION 1 mague 06/05 Inactiv e 2023 89039 13613 5 Twice daily as needed Topica l False Nystatin 100,000 unit/gram topical powder [generic] 100,000 unit Topical Twice daily to scrotum with AM and PM care For Scrotal excoriation 100,000 unit 06/05 Inactiv e 2023 78910 14935 5 Twice daily Topica l False Problems [...] adjustment of urinary device 07/21/2023 Active Z79.01 care home (current) use of anticoagulants 07/21 Active N31.9 [...] weight Temperature SpO2 Blood Sugar Pulse Respirations 22489 216 18612 1 [place]10 [place] [address] 216 34475 2 79.00 mm[Hg] - Sitting 157.00 mm[Hg] - Sitting 73 NI 254.10 NI 36.30 Tympanic 95.00 % 72.00/ min 16.00/min 52766 216 40978 4 98.80 Tympanic 96300 216 23207 2 78.00 mm[Hg] - Sitting 164.00 mm[Hg] - Sitting 74511 217 97961 3 98.20 Tympanic 49974 217 98746 5 73.00 mm[Hg] - Sitting 159.00 mm[Hg] - Sitting 27438 217 16941 9 98.40 Forehead Scan 04971 218 35143 3 97.90 Tympanic 55039 218 53258 5 77.00 mm[Hg] - Sitting 137.00 mm[Hg] - Sitting 54542 219 87826 0 97.70 Tympanic 54346 219 39493 6 97.60 Tympanic 64739 219 02505 4 76.00 mm[Hg] - Sitting 139.00 mm[Hg] - Sitting 21962 219 55976 4 97.80 Forehead Scan 85739 220 69968 9 97.90 Tympanic 40243 220 04667 9 76.00 mm[Hg] - Sitting 138.00 mm[Hg] - Sitting 47211 220 81302 6 98.10 Tympanic 74002 221 11541 5 67.00 mm[Hg] - Sitting 142.00 mm[Hg] - Sitting 66864 221 38762 8 98.20 Tympanic 18617 221 46114 0 98.30 Tympanic 13534 222 28549 7 98.20 Tympanic 91581 222 24564 8 97.90 Tympanic 15669 223 21785 3 98.20 Tympanic 62355 223 79767 3 98.00 Tympanic 82697 224 08611 0 59.00 mm[Hg] - Sitting 111.00 mm[Hg] - Sitting 98.40 Forehead Scan 95.00 % 56.00/ min 18.00/min 68380 224 15481 9 98.20 Forehead Scan 21307 224 66685 3 97.90 Tympanic 04221 225 49696 4 98.20 Tympanic 75561 225 92152 8 97.50 Forehead Scan 10556 228 73911 0 55.00 mm[Hg] - Sitting 118.00 mm[Hg] - Sitting 98.40 Tympanic 69.00/ min 20277 229 05921 8 78.00 mm[Hg] - Sitting 152.00 mm[Hg] - Sitting 94389 230 77133 0 62.00 mm[Hg] - Sitting 122.00 mm[Hg] - Sitting 41991 231 89630 7 72.00 mm[Hg] - Lying Down 140.00 mm[Hg] - Lying Down 14424 101 50116 3 97.70 Forehead Scan 40227 101 68352 1 254.10 NI 69.00/ min 97176 101 51052 9 72.00 mm[Hg] - Sitting 142.00 mm[Hg] - Sitting 97.70 Tympanic 18.00/min 67321 101 53046 3 72.00 mm[Hg] - Lying Down 142.00 mm[Hg] - Lying Down 74680 102 49198 8 68.00 mm[Hg] - Lying Down 152.00 mm[Hg] - Lying Down 68067 103 85086 5 74.00 mm[Hg] - Sitting 158.00 mm[Hg] - Sitting 91700 104 89394 9 78.00 mm[Hg] - Sitting 144.00 mm[Hg] - Sitting 97378 105 66829 5 68.00 mm[Hg] - Sitting 138.00 mm[Hg] - Sitting 57031 106 87284 1 70.00 mm[Hg] - Sitting 138.00 mm[Hg] - Sitting 17872 107 01378 1 67.00 mm[Hg] - Sitting 142.00 mm[Hg] - Sitting 59371 108 83560 0 74.00 mm[Hg] - Sitting 143.00 mm[Hg] - Sitting 19971 110 83708 6 85.00 mm[Hg] - Sitting 160.00 mm[Hg] - Sitting 97.80 Tympanic 93.00 % 76.00/ min 18.00/min 67720 111 25058 1 83.00 mm[Hg] - Sitting 129.00 mm[Hg] - Sitting 98.60 Tympanic 92.00 % 71.00/ min 18.00/min 47847 111 51251 5 60.00 mm[Hg] - Sitting 114.00 mm[Hg] - Sitting 98.70 Tympanic 92.00 % 76.00/ min 18.00/min 86976 112 93739 4 55.00 mm[Hg] - Sitting 125.00 mm[Hg] - Sitting 98.60 Tympanic 91.00 % 68.00/ min 18.00/min [id number] 9 75.00 mm[Hg] - Sitting 174.00 mm[Hg] - Sitting 97.70 Tympanic 96.00 % 71.00/ min 18.00/min 72408 113 72853 2 77.00 mm[Hg] - Sitting 139.00 mm[Hg] - Sitting 98.10 Tympanic 97.00 % 81.00/ min 18.00/min 83133 113 24915 4 78.00 mm[Hg] - Sitting 153.00 mm[Hg] - Sitting 98.40 Tympanic 93.00 % 69.00/ min 18.00/min 98205 114 42138 5 76.00 mm[Hg] - Sitting 137.00 mm[Hg] - Sitting 98.10 Tympanic 97.00 % 80.00/ min 18.00/min 92316 114 39215 0 76.00 mm[Hg] - Sitting 145.00 mm[Hg] [...]
--- OUTSIDE RECORDS SUMMARY | 2024-07-26 11:11 | External Medical Summary | Continuity Of Care Document ---
Author Name Unknown Address [address] [place] [address] Organization [facility] () Care Team Providers Care Card Sorter Name Role Phone DO Pritchett Amy Primary Care Provider [phone] Allergies Allergy Reaction Start Date End Date Status AMINOGLYCOSIDES Active CIPRO Active GENTAMICIN Active NSAIDS (NON-STEROIDAL ANTI-INFLAMMATORY DRUG) 0 Active IBUPROFEN Active QUINOLONES Active VALIUM Active Medications Medication Instructions Dosage Start Date End Date Status Order Date Drug Code Frequency Route of Admin Diagnosis Code Substitutions Allowed Spikevax [id number](1 2y up)(PF) 50 mcg/0.5 mL intramuscul ar suspension [COVID oeg28-53(12 up)(andu)(P F)] 0.5mL Intramuscular 1 time Monitory 15 Minutes post injection for adverse effects; record site/temp For COVID 19 PREVENTION 0.5mL 01/02 Inactiv e 2023 32958 90274 4 1 time Intram uscula r False [facility] - Nurse initials indicate verificatio n that [id number] vaccine was administere d by [facility] 1 Intramuscular 1 time ( Indicate vaccine type) For vaccine 1 05/03 Inactiv e 2023 1 time Intram uscula r False Lisinopril 40 mg tablet [generic] TAKE ONE (1) TABLET BY MOUTH IN THE MORNING. For DX- HTN 1 2023 Active 2023 54927 96127 1 Once daily By Mouth False Tizanidine 2 mg tablet [generic] TAKE ONE (1) TABLET BY MOUTH ONCE DAILY For MUSCLE SPASM 1 2023 Active 2023 11240 24175 0 Once daily By Mouth M62.838 False Tamsulosin 0.4 mg capsule [generic] TAKE (1) CAPSULE BY MOUTH AT BEDTIME For SPASMS 1 2023 Active 2023 33215 59526 0 Once daily By Mouth False Aspirin 81 mg tablet Once daily 1 TABLET BY MOUTH IN THE MORNING For DX- CAD DO NOT CRUSH, CHEW OR BREAK 81 mg 06/12 Inactiv e 2023 Once daily By Mouth False Baclofen 20 mg tablet [generic] 20 mg By Mouth 4 times a day For DX- MUSCLE SPASMS 20 mg 12/12 Inactiv e 2023 63468 22129 1 4 times a day By Mouth False Calcium citrate 250 mg tablet Once daily 4 TABLET BY MOUTH For DX- SUPPLEMENT 250 mg calci 12/12 Inactiv e 2023 Once daily By Mouth False Co Q-10 100 mg capsule 100 mg By Mouth Once daily For DX- SUPPLEMENT 100 mg 06/20 Inactiv e 2023 93394 74201 5 Once daily By Mouth False Furosemide 20 mg tablet [generic] 20 mg By Mouth Once daily For DX-CHF 20 mg 12/12 Inactiv e 2023 28037 25740 0 Once daily By Mouth False Gabapentin 300 mg capsule [generic] 300 mg By Mouth 3 times a day For DX- NEUROPATHY 300 mg 12/12 Inactiv e 2023 94903 53093 4 3 times a day By Mouth False Loratadine 10 mg tablet [generic] 10 mg By Mouth Once daily For DX- ALLERGIES 10 mg 2023 Active 2023 39239 89554 1 Once daily By Mouth False Miralax 17 gram/dose oral powder 17 gram/dose By Mouth IN THE MORNING Mix 1 TABLESPOON IN 8 OZ OF FLUID HOLD FOR LOOSE STOOLS For DX- CONSTIPATION 17 gram/do se 12/12 Inactiv e 2023 61620 89144 0 Once daily By Mouth False Paroxetine 30 mg tablet [generic] 30 mg By Mouth Once daily For DX- DEPRESSION 30 mg 2023 00/00 /0000 Active 2023 43470 60002 3 Once daily By Mouth False Potassium citrate ER 15 mEq (1,620 mg) tablet,exte nded release [generic] 15 mEq By Mouth 3 times a day For DX- SUPPLEMENT/DI URETIC USE/ HYPOCITRAUIRA DO NOT CRUSH 15 mEq 12/12 Inactiv e 2023 93569 02835 1 3 times a day By Mouth [...] For DX- DANDRUFF 12/12 Inactiv e 2023 94534 25385 4 3 times a week Topica l False Acetaminoph en 325 mg tablet [generic] TAKE 2 TABS (650MG) BY MOUTH EVERY 4 HOURS NEEDED FOR TEMP >100 NOT TO EXCEED 3GM/24HRS TAKE 2 TABS (650MG) BY MOUTH EVERY 4 HOURS NEEDED FOR TEMP >100 NOT TO EXCEED 3GM/24HRS For DX-FEVER 2 12/12 Inactiv e 2023 15765 90063 0 By Mouth False MILK OF MAGNESIA ADMINISTER 30 ML BY MOUTH ONCE DAILY NEEDED FOR CONSTIPATION X3 DAYS WITH NO BM. For DX- CONSTIPATION 30ML 12/12 Inactiv e 2023 79492 04789 9 By Mouth False Enema Disposable 19 gram-7 gram/118 mL ADMINISTER ONE ENEMA RECTALLY ONCE DAILY NEEDED FOR CONSTIPATION ON DAY 6 OF NO BM For DX- CONSTIPATION 12/12 Inactiv e 2023 75104 20339 1 Rectal False TUMS EXTRA STR 750MG TAKE (1) TABLET BY MOUTH THREE TIMES DAILY NEEDED FOR INDIGESTION For DX- INDIGESTION 1 12/12 Inactiv e 2023 18386 32297 8 By Mouth False Vitamin D3 25 [...] CONSTIPATION 10 mg 12/12 Inactiv e 2023 41321 61426 1 Rectal False Melatonin 3 mg tablet [generic] 3 mg By Mouth As Needed For DX-INSOMMIA 3 mg 12/12 Inactiv e 2023 48945 70722 8 By Mouth False Hydrocortis one 1 % topical cream [generic] 1 % Topical As Needed For DX- PAIN 1 % 12/12 Inactiv e 2023 66740 69882 1 Topica l False HYDROCORTIS ONE/PARMOXI NE [...] 5-10 50 mg 12/20 Inactiv e 2023 48153 49734 0 Every 4 hours as needed By Mouth False Tylenol 325 mg tablet 325 mg By Mouth Every 4 hours as needed For DX- PAIN PRN FOR MILD PAIN, DO NOT EXCEED 3000MG APAP/24 HOURS 325 mg 12/20 Inactiv e 2023 31252 80444 0 Every 4 hours as needed By Mouth False Baclofen 20 mg tablet [generic] 20 mg By Mouth 4 times a day For MUSCLE SPASMS 20 mg 12/20 Inactiv e 2023 53087 46864 1 4 times a day By Mouth False Calcium citrate 250 mg tablet [generic] Once daily TAKE 4 TABLETS (1000MG) BY MOUTH For SUPPLEMENT 1000 MG 06/26 Inactiv e 2023 37657 62773 6 Once daily By Mouth False Dulcolax (bisacodyl) 10 mg rectal suppository 10 mg Rectal Once daily For CONSTIPATION *MAY HOLD FOR LOOSE STOOLS* 10 mg 2023 Active 2023 97442 29570 1 Once daily Rectal False Gabapentin 300 mg capsule [generic] 300 mg By Mouth 3 times a day For NEUROPATHY 300 mg 2023 Active 2023 47423 54621 4 3 times a day By Mouth False Potassium citrate ER 15 mEq (1,620 mg) tablet,exte nded release [generic] 15 mEq By Mouth 3 times a day For SUPPLEMENT/DI URETIC USE/HYPOCITRA URIA 15 mEq 06/11 Inactiv e 2023 41645 86782 1 3 times a day By Mouth False Potassium chloride ER 20 mEq tablet,exte nded release [generic] 20 mEq By Mouth 3 times a day *DO NOT CRUSH, CHEW OR BREAK* For SUPPLEMENT 20 mEq 12/18 Inactiv e 2023 88054 28843 1 3 times a day By Mouth False Tizanidine 4 mg tablet [generic] 4 mg By Mouth Once daily For MUSCLE SPASMS 4 mg 2023 Active 2023 27022 40097 0 Once daily By Mouth False Tylenol 325 mg tablet 2 tabs By Mouth Every 4 hours as needed For Fever >100 DO NOT EXCEED 3000 MG APAP/24 Hours 2 tabs 12/20 Inactiv e 2023 51846 66894 0 Every 4 hours as needed By Mouth False Dulcolax (bisacodyl) 10 mg rectal suppository Daily as needed For Constipation 1 sup 12/20 Inactiv e 2023 60420 36951 1 Daily as needed Rectal False Fleet Enema 19 gram-7 gram/118 mL 1 Rectal Daily as neededFor Constipation 1 12/20 Inactiv e 2023 88366 83196 6 Daily as needed Rectal False Milk of Magnesia 400 mg/5 mL oral suspension [Magnesium hydroxide] PRN 30ml By Mouth Daily as needed for constipation one time daily if no BM, on day 4 of no BM (PRN refer to instructions) For Constipation For Constipatioin 30ml 12/20 Inactiv e 2023 33365 30283 6 1 time By Mouth False Melatonin 3 mg tablet [generic] 3 mg By Mouth Once daily As Needed For INSOMNIA 3 mg 12/20 Inactiv e 2023 10214 38201 8 Once daily By Mouth False Hydrocortis one 1 % topical cream [generic] 1 % Rectal Four times daily as needed For hemorroid pain 1 % 12/20 Inactiv e 2023 26399 39760 1 Four times daily as needed Rectal False X-STGH ANTACID 750MG CHEW TAKE (1) TABLET BY MOUTH THREE TIMES DAILY NEEDED FOR INDIGESTION 12/20 Inactiv e 2023 61000 04133 4 Three times daily as needed Saline Mist 0.65 % nasal spray aerosol 0.65 % Nares Four times daily as needed For DRYNESS 0.65 % 12/20 Inactiv e 2023 12954 17331 8 Four times daily as needed Nares False Vicks Vaporub 4.7 %-1.2 %-2.6 % topical ointment Apply topically to chest Three times daily as needed For CONGESTION 4.7-1.2 -2.6 12/20 Inactiv e 2023 17432 74878 1 Three times daily as needed Topica l False VITAMIN D3 2000U CAP TAKE ONE (1) CAPSULE BY MOUTH DAILY* DO NOT CRUSH, CHEW OR BREAK* For Supplement 1 capsule 12/19 Inactiv e 2023 34542 48712 0 Once daily By Mouth False Potassium chloride ER 20 mEq tablet,exte nded release(par t/cryst) [generic] TAKE (1) TABLET BY MOUTH THREE TIMES DAILY (MORNING, AFTERNOON, EVENING)*DO NOT CRUSH, CHEW, OR BREAK* For SUPPLEMENT 20 MEQ 06/11 Inactiv e 2023 97503 56062 5 3 times a day By Mouth False Aspirin 81 mg tablet,camron yed release [generic] TAKE ONE (1) TABLET BY MOUTH ONCE DAILY*DO NOT CRUSH, CHEW OR BREAK* For CAD 81 MG 12/22 Inactiv e 2023 54154 83860 0 Once daily By Mouth False Furosemide 20 mg tablet [generic] TAKE 1 AND 1/2 TABLETS (30MG) BY MOUTH ONCE DAILY For CHF 30mg 2023 Active 2023 27765 58230 1 Once daily By Mouth False Polyethylen e glycol 3350 17 gram/dose oral powder [generic] MIX 17 GRAMS (1 CAPFUL) IN 60Z OF LIQUID AND DRINK BY MOUTH ONCE DAILY *HOLD FOR LOOSE STOOLS* For constipation 17 g 2023 Active 2023 20913 52896 3 Once daily By Mouth False Vitamin D3 50 mcg (2,000 unit) capsule Once daily TAKE ONE (1) CAPSULE BY MOUTH DAILY* DO NOT CRUSH, CHEW OR BREAK* For Supplement 1 capsule 02/07 Inactiv e 2023 28646 76917 2 Once daily By Mouth False Fleet Enema 19 gram-7 gram/118 mL 1 Rectal Daily as neededFor Constipation 1 2023 0000 Active 2023 30740 98671 6 Daily as needed Rectal False Tums E-X 300 mg (as calcium carbonate 750 mg) chewable tablet 1 tab By Mouth TAKE (1) TABLET BY MOUTH THREE TIMES DAILY NEEDED FOR INDIGESTION 1 tab 202300 /0000 Active 2023 99856 27849 1 Three times daily as needed By Mouth False Tylenol 325 mg tablet 2 tabs By Mouth Every 4 hours as needed For Fever >100 DO NOT EXCEED 3000 MG APAP/24 Hours 2 tabs 202300 /0000 Active 2023 45496 85358 0 Every 4 hours as needed By Mouth False Vicks Vaporub 4.7 %-1.2 %-2.6 % topical ointment Apply topically to chest Three times daily as needed For CONGESTION topical 202300 Active 2023 25634 54855 1 Three times daily as needed Topica l False Tylenol 325 mg tablet 2 tabs By Mouth Every 4 hours as needed For DX- PAIN PRN FOR MILD PAIN, DO NOT EXCEED 3000MG APAP/24 HOURS 2 tabs 202300 Active 2023 08088 94641 0 Every 4 hours as needed By Mouth False Tramadol 50 mg tablet [generic] 1 tab By Mouth Every 4 hours as needed For DX- PAIN 5-10 1 tab 03/10 Inactiv e 2023 88605 10401 0 Every 4 hours as needed By Mouth False Saline Mist 0.65 % nasal spray aerosol 2 sprays Nares Four times daily as needed For DRYNESS 2 sprays 202300 / Active 2023 18621 90920 8 Four times daily as needed Nares False Dulcolax (bisacodyl) 10 mg rectal suppository Daily as needed For Constipation 1 sup 202300 / Active 2023 67456 61934 1 Daily as needed Rectal False Hydrocortis one-pramoxi ne 1 %-1 % rectal cream [generic] 1 mague Rectal Four times daily as needed For hemorroid pain 1 mague 202300 /0000 Active 2023 25538 48036 4 Four times daily as needed Rectal False Melatonin 3 mg tablet [generic] 1 tab By Mouth At bedtime as needed For INSOMNIA 1 tab 12/24 Inactiv e 2023 81457 26071 8 At bedtime as needed By Mouth False Milk of Magnesia 400 mg/5 mL oral suspension 30ml By Mouth Daily as needed Daily as needed for constipation one time daily if no BM, on day 4 of no BM (PRN refer to instructions) For Constipation For Constipatioin 30ml 2023 Active 2023 90862 14635 2 Daily as needed By Mouth False Baclofen 20 mg tablet [generic] 20 mg By Mouth 4 times a day For MUSCLE SPASMS 20 mg 2023 Active 2023 35037 40578 1 4 times a day By Mouth False Melatonin 3 mg tablet [generic] 1 tab By Mouth At bedtime as needed For INSOMNIA 1 tab 2023 Active 2023 38791 71105 8 At bedtime as needed By Mouth False Bactrim DS 800 mg-160 mg tablet 1 tab By Mouth Twice daily For URINARY TRACT INFECTION, SITE NOT SPECIFIED 1 tab 01/06 Inactiv e 2023 01580 46595 1 Twice daily By Mouth N39.0 False Cefdinir 300 mg capsule [generic] 300 mg By Mouth Twice daily For UTI 300 mg 01/07 Inactiv e 2023 70425 12725 0 Twice daily By Mouth False Cefdinir 300 mg capsule [generic] 300 mg By Mouth Twice daily For UTI 300 mg 01/17 Inactiv e 2023 44902 93820 0 Twice daily By Mouth False Zyrtec 10 mg tablet 10 mg By Mouth Once daily For sinus congestion 10 mg 01/22 Inactiv e 2023 24134 04145 0 Once daily By Mouth False Tobramycin 0.3 %-dexametha sone 0.1 % eye drops,suspe nsion [generic] 0.3-0.1 % Left Eye 4 times a day For eye infection 0.3-0.1 % 02/05 Inactiv e 2023 52985 79997 5 4 times a day Left Eye False Fluconazole 150 mg tablet [generic] 150 mg By Mouth 1 time For yeast infection 150 mg 02/15 Inactiv e 2023 41651 86512 2 1 time By Mouth False Tramadol 50 mg tablet [generic] 1 tab By Mouth Every 4 hours as needed For DX- PAIN 5-10 1 tab 2023 00/00 /0000 Active 2023 36994 20365 0 Every 4 hours as needed By Mouth False Tobramycin 0.3 %-dexametha sone 0.1 % eye drops,suspe nsion [generic] 1 drop Left Eye 4 times a day For Inflammation of left eye 1 drop 05/08 Inactiv e 2023 56997 27876 5 4 times a day Left Eye False Voltaren Arthritis Pain 1 % topical gel 2 gm Topical Twice daily to rigth shoulder for 2 weeks For pain 2 gm 05/08 Inactiv e 2023 22628 50984 1 Twice daily Topica l False Chlorthalid one 25 mg tablet [generic] 12.5mg By Mouth Once daily For HTN 12.5mg 05/06 Inactiv e 2023 96333 56238 0 Once daily By Mouth False Chlorthalid one 25 mg tablet [generic] 12.5mg By Mouth Once daily For HTN 12.5mg 05/07 Inactiv e 2023 68035 69404 0 Once daily By Mouth False Chlorthalid one 25 mg tablet [generic] 05/07 Inactiv e 2023 61208 70380 0 Chlorthalid one 25 mg tablet [generic] 12.5mg By Mouth Once daily For HTN 12.5mg 06/26 Inactiv e 2023 05170 42191 0 Once daily By Mouth False Norvasc 5 mg tablet 5mg By Mouth Once daily, hold medication if systolic is less than 90 For HYPERTENSIVE HEART DISEASE WITHOUT HEART FAILURE 5mg 06/03 Inactiv e 2023 21514 46872 1 Once daily By Mouth I11.9 False Norvasc 5 mg tablet 5mg By Mouth Once daily, hold medication if systolic is less than 90 For HYPERTENSIVE HEART DISEASE WITHOUT HEART FAILURE 5mg 06/03 Inactiv e 2023 01536 38059 1 Once daily By Mouth I11.9 False Norvasc 5 mg tablet 5mg By Mouth Once daily, hold medication if systolic is less than 90 For HYPERTENSIVE HEART DISEASE WITHOUT HEART FAILURE 5mg 06/26 Inactiv e 2023 46352 12730 1 Once daily By Mouth I11.9 False [...] 10 mg 2023 00/00 /0000 Active 2023 24964 10653 1 Once daily By Mouth False DISCONTINUE as of 06/13/2024: Aspirin 81 mg tablet 06/13 Inactiv e 2023 Aspirin 81 mg tablet Once daily 1 TABLET BY MOUTH IN THE MORNING For DX- CAD DO NOT CRUSH, CHEW OR BREAK 81 mg 06/13 Inactiv e 2023 Once daily By Mouth False Aspirin 81 mg tablet,acmron yed release [generic] 81 mg By Mouth Once daily Do not crush, chew, or break For CAD 81 mg 06/14 Inactiv e 2023 11613 85759 9 Once daily By Mouth False Aspirin 81 mg tablet,camron yed release [generic] 06/14 Inactiv e 2023 58416 40043 9 Aspirin 81 mg tablet,camron yed release [generic] 81 mg By Mouth Once daily Do not crush, chew, or break For CAD 81 mg 06/154 Inactiv e 2023 28892 90094 9 Once daily By Mouth False Cefpodoxime 200 mg tablet [generic] 200mg By Mouth Twice daily For UTI 200mg 07/04 Inactiv e 2023 33437 84445 0 Twice daily By Mouth False Calcium citrate 250 mg tablet [generic] 06/26 Inactiv e 2023 48944 88974 6 Calcium citrate 250 mg tablet [generic] Once daily TAKE 4 TABLETS (1000MG) BY MOUTH For SUPPLEMENT 500 MG 2023 Active 2023 70201 52610 6 Once daily By Mouth False Norvasc 5 mg tablet 7.5 mg By Mouth Once daily Hold medication if SBP <90 For HYPERTENSIVE HEART DISEASE WITHOUT HEART FAILURE 7.5 mg 06/30 Inactiv e 2023 67799 26541 1 Once daily By Mouth I11.9 False Norvasc 5 mg tablet 7.5 mg By Mouth Once daily Hold medication if SBP <90 For HYPERTENSIVE HEART DISEASE WITHOUT HEART FAILURE 7.5 mg 07/06 Inactiv e 2023 67520 51747 1 Once daily By Mouth I11.9 False Simethicone 125 mg capsule [generic] 2 capule By Mouth Twice daily as needed For bloating/gas pain 2 capule 2023 Active 2023 88223 34808 0 Twice daily as needed By Mouth False Cepacol Sore Throat (benzocaine -menthol) 15 mg-2.6 mg lozenges 2 lozenges By Mouth Every 6 hours as needed For sore throat 2 lozenge s 2023 Active 2023 32892 12074 6 Every 6 hours as needed By Mouth False Cefepime 1 gram solution for injection [generic] 1g Intramuscular Every 12 hours 1g intramuscular ly ever 12 hours For UTI 1g 07/06 Inactiv e 2023 11953 44054 4 Every 12 hours Intram uscula r False Cefepime 1 gram solution for injection [generic] 07/06 Inactiv e 2023 55672 32723 4 Cefepime 1 gram solution for injection [generic] 1g Intramuscular Every 12 hours 1g intramuscular ly ever 12 hours For UTI Reconstitute with 2.4 ML of NSS. 1g 07/08 Inactiv e 2023 43817 68382 4 Every 12 hours Intram uscula r False Norvasc 5 mg tablet 07/06 Inactiv e 2023 23145 48394 1 I11.9 Norvasc 5 mg tablet 7.5 mg By Mouth Once daily Hold medication if SBP <90 For HYPERTENSIVE HEART DISEASE WITHOUT HEART FAILURE 7.5 mg 07/18 Inactiv e 2023 16513 25807 1 Once daily By Mouth I11.9 False Cefepime 1 gram solution for injection [generic] 07/08 Inactiv e 2023 98153 98484 4 Cefepime 1 gram solution for injection [generic] 1g Intramuscular Every 12 hours 1g intramuscular ly ever 12 hours For UTI Reconstitute with 2.4 ML of NSS. 1g 07/08 Inactiv e 2023 08230 57902 4 Every 12 hours Intram uscula r False Cefepime 1 gram solution for injection [generic] 07/08 Inactiv e 2023 58412 77699 4 Cefepime 1 gram solution for injection [generic] 1g Intramuscular Every 12 hours 1g intramuscular ly ever 12 hours For UTI Reconstitute with 2.4 ML of NSS. 1g 07/11 Inactiv e 2023 42708 40783 4 Every 12 hours Intram uscula r False Fleet Enema 19 gram-7 gram/118 mL 1 Rectal 1 time For constipation 1 07/16 Inactiv e 2024 21450 02374 6 1 time Rectal False Fleet Enema 19 gram-7 gram/118 mL 1 Rectal 1 time For constipation 1 07/17 Inactiv e 2024 49617 67242 6 1 time Rectal False Norvasc 5 mg tablet 7.5 mg By Mouth Once daily For HYPERTENSIVE HEART DISEASE WITHOUT HEART FAILURE 7.5 mg 2024 00/00 /0000 Active 2024 75281 22564 1 Once daily By Mouth I11.9 False Potassium chloride ER 20 mEq tablet,exte nded release(par t/cryst) [generic] 40 mEq By Mouth 1 time For low potassium prior to surgery 40 mEq 07/18 Inactiv e 2024 53276 15217 1 1 time By Mouth False Potassium chloride ER 20 mEq tablet,exte nded release(par t/cryst) [generic] 40 mEq By Mouth 1 time For low potassium prior to surgery 40 mEq 07/18 Inactiv e 2024 51707 78100 1 1 time By Mouth False Potassium chloride ER 20 mEq tablet,exte nded release(par t/cryst) [generic] 40 mEq By Mouth 1 time For low potassium 40 mEq 07/18 Inactiv e 2024 86433 10346 1 1 time By Mouth False Potassium chloride ER 20 mEq tablet,exte nded release(par t/cryst) [generic] 40 mEq By Mouth 1 time For low potassium 40 mEq 07/18 Inactiv e 2024 27335 86536 1 1 time By Mouth False Potassium chloride ER 20 mEq tablet,exte nded release [generic] 2 By Mouth 1 time For low potassium 2 07/19 Inactiv e 2024 83228 94678 1 1 time By Mouth False Potassium chloride ER 20 mEq tablet,exte nded release [generic] 2 capsules capsules By Mouth 1 time Please send capsule (2 capsules) For low potassium 2 capsule s 07/20 Inactiv e 2024 60181 79283 1 1 time By Mouth False Potassium chloride ER 20 mEq tablet,exte nded release(par t/cryst) [generic] TAKE (2) TABLETS (40MEQ) BY MOUTH X1 DOSE 07/20 Inactiv e 2024 49566 90300 5 Cefepime 1 gram solution for injection [generic] 1 gram Intramuscular Every 12 hours For Urinary Tract Infection 1 gram 07/21 Inactiv e 2024 57295 96034 4 Every 12 hours Intram uscula r False Cefepime 1 gram solution for injection [generic] 07/21 Inactiv e 2024 87000 76900 4 Cefepime 1 gram solution for injection [generic] 1 gram Intramuscular Every 12 hours For Urinary Tract Infection 1 gram 07/22 Inactiv e 2024 10536 17543 4 Every 12 hours Intram uscula r False Cefepime 1 gram solution for injection [generic] 1 gram Intramuscular Every 12 hours For Urinary Tract Infection 1 gram 07/24 Inactiv e 2024 75101 60914 4 Every 12 hours Intram uscula r False Klor-Con 10 mEq tablet,exte nded release Klor- Con GIVE 2 Capsules daily Do NOT SEND Tablets Requesting Micro K 10 meq capsules For hyponatremia 2 capsule s 2024 00/00 /0000 Active 2024 20327 27639 1 Once daily By Mouth False Cefepime 1 gram solution for injection [generic] 1 gram Intramuscular Every 12 hours For Urinary Tract Infection 1 gram 2024 00/00 /0000 Active 2024 21881 29316 4 Every 12 hours Intram uscula r False Nystatin 100,000 unit/gram topical cream [generic] 100,000 unit Topical As Needed For DX- EXCORIATION 100,000 unit 12/12 Inactiv e 2023 59088 18853 5 Topica l False Vicks Vaporub 4.7 %-1.2 %-2.6 % topical ointment 4.7-1.2-2.6 Topical 3 times a day As Needed For DX- CONGESTION 4.7-1.2 -2.6 12/12 Inactiv e 2023 56107 06648 1 3 times a day Topica l False Ketoconazol e 2 % shampoo [generic] APPLY SHAMPOO TOPICALLY TO SCALP DURING HAIR WASHINGDX: ELVIA DERM OF SCALP For DX- ELVIA DERM OF SCALP 12/12 Inactiv e 2023 42488 81000 4 Topica l False THERA SILICONE SKIN GUARD Topical Twice daily 1 APPLICATION TOPICALLY IN THE MORNING AND AT BEDTIME TO SCROTUM For DX- PREVENTION 2023 Active 2023 Twice daily Topica l False Selenium sulfide 2.5 % lotion [generic] 2.5 % Topical EVERY MONDAY, MONDAY AND MONDAY AFTER SHOWER For DANDRUFF 2.5 % 2023 Active 2023 43892 23115 4 3 times a week Topica l False Nystatin (bulk) 100 million unit powder [generic] 100 million Topical Twice daily as needed For EXOCORATION 100 million 12/20 Inactiv e 2023 71044 15423 1 Twice daily as needed Topica l False Ketoconazol e 2 % shampoo [generic] Once daily APPLY SHAMPOO TOPICALLY TO SCALP DURING HAIR WASHING ON SHOWER DAYS- , , MON For ELVIA DERM OF SCAP 2 % 2023 Active 2023 63728 64313 4 Once daily Topica l False Nystatin 100,000 unit/gram topical cream [generic] 1 mague Topical Twice daily as needed For EXOCORATION 1 mague 06/05 Inactiv e 2023 77704 06538 5 Twice daily as needed Topica l False Nystatin 100,000 unit/gram topical powder [generic] 100,000 unit Topical Twice daily to scrotum with AM and PM care For Scrotal excoriation 100,000 unit 06/05 Inactiv e 2023 25859 54710 5 Twice daily Topica l False Problems [...] adjustment of urinary device 07/21/2023 Active Z79.01 skilled nursing (current) use of anticoagulants 07/21 Active N31.9 [...] weight Temperature SpO2 Blood Sugar Pulse Respirations 01701 216 57130 1 254.10 [place] 50686 216 09082 2 79.00 mm[Hg] - Sitting 157.00 mm[Hg] - Sitting 73 NI 254.10 NI 36.30 Tympanic 95.00 % 72.00/ min 16.00/min 47762 216 09286 4 98.80 Tympanic 37846 216 59864 2 78.00 mm[Hg] - Sitting 164.00 mm[Hg] - Sitting 92965 217 26857 3 98.20 Tympanic 70839 217 79090 5 73.00 mm[Hg] - Sitting 159.00 mm[Hg] - Sitting 19088 217 82403 9 98.40 Forehead Scan 14851 218 65002 3 97.90 Tympanic 35739 218 37542 5 77.00 mm[Hg] - Sitting 137.00 mm[Hg] - Sitting 97739 219 44374 0 97.70 Tympanic 14112 219 08627 6 97.60 Tympanic 51931 219 59800 4 76.00 mm[Hg] - Sitting 139.00 mm[Hg] - Sitting 27165 219 35825 4 97.80 Forehead Scan 53315 220 75398 9 97.90 Tympanic 36590 220 10233 9 76.00 mm[Hg] - Sitting 138.00 mm[Hg] - Sitting 37331 220 44446 6 98.10 Tympanic 19098 221 41322 5 67.00 mm[Hg] - Sitting 142.00 mm[Hg] - Sitting 50660 221 90227 8 98.20 Tympanic 32553 221 74664 0 98.30 Tympanic 62842 222 75837 7 98.20 Tympanic 46164 222 64379 8 97.90 Tympanic 80903 223 98592 3 98.20 Tympanic 31960 223 14107 3 98.00 Tympanic 16663 224 38970 0 59.00 mm[Hg] - Sitting 111.00 mm[Hg] - Sitting 98.40 Forehead Scan 95.00 % 56.00/ min 18.00/min 86850 224 98642 9 98.20 Forehead Scan 09705 224 94520 3 97.90 Tympanic 61789 225 36429 4 98.20 Tympanic 58818 225 98982 8 97.50 Forehead Scan 17011 228 12695 0 55.00 mm[Hg] - Sitting 118.00 mm[Hg] - Sitting 98.40 Tympanic 69.00/ min 92674 229 75808 8 78.00 mm[Hg] - Sitting 152.00 mm[Hg] - Sitting 80830 230 48304 0 62.00 mm[Hg] - Sitting 122.00 mm[Hg] - Sitting 14905 231 80151 7 72.00 mm[Hg] - Lying Down 140.00 mm[Hg] - Lying Down 45846 101 33946 3 97.70 Forehead Scan 28680 101 49208 1 254.10 NI 69.00/ min 83752 101 48884 9 72.00 mm[Hg] - Sitting 142.00 mm[Hg] - Sitting 97.70 Tympanic 18.00/min 59168 101 15380 3 72.00 mm[Hg] - Lying Down 142.00 mm[Hg] - Lying Down 92437 102 28812 8 68.00 mm[Hg] - Lying Down 152.00 mm[Hg] - Lying Down 67473 103 79824 5 74.00 mm[Hg] - Sitting 158.00 mm[Hg] - Sitting 89215 104 [id number] 9 78.00 mm[Hg] - Sitting 144.00 mm[Hg] - Sitting 35088 105 19288 5 68.00 mm[Hg] - Sitting 138.00 mm[Hg] - Sitting 88458 106 86714 1 70.00 mm[Hg] - Sitting 138.00 mm[Hg] - Sitting 58349 107 11189 1 67.00 mm[Hg] - Sitting 142.00 mm[Hg] - Sitting 37133 108 08803 0 74.00 mm[Hg] - Sitting 143.00 mm[Hg] - Sitting 37258 110 44522 6 85.00 mm[Hg] - Sitting 160.00 mm[Hg] - Sitting 97.80 Tympanic 93.00 % 76.00/ min 18.00/min 08042 111 77849 1 83.00 mm[Hg] - Sitting 129.00 mm[Hg] - Sitting 98.60 Tympanic 92.00 % 71.00/ min 18.00/min 82298 111 02477 5 60.00 mm[Hg] - Sitting 114.00 mm[Hg] - Sitting 98.70 Tympanic 92.00 % 76.00/ min 18.00/min 29381 112 40707 4 55.00 mm[Hg] - Sitting 125.00 mm[Hg] - Sitting 98.60 Tympanic 91.00 % 68.00/ min 18.00/min 07559 112 21944 9 75.00 mm[Hg] - Sitting 174.00 mm[Hg] - Sitting 97.70 Tympanic 96.00 % 71.00/ min 18.00/min 36738 113 98798 2 77.00 mm[Hg] - Sitting 139.00 mm[Hg] - Sitting 98.10 Tympanic 97.00 % 81.00/ min 18.00/min 84825 113 04039 4 78.00 mm[Hg] - Sitting 153.00 mm[Hg] - Sitting 98.40 Tympanic 93.00 % 69.00/ min 18.00/min 62443 114 37696 5 76.00 mm[Hg] - Sitting 137.00 mm[Hg] - Sitting 98.10 Tympanic 97.00 % 80.00/ min 18.00/min 24546 114 60074 0 76.00 mm[Hg] - Sitting 145.00 mm[Hg] - Sitting 97.90 Tympanic 98.00 % 73.00/ min 18.00/min 24577 115 17347 3 98.40 Tympanic 77869 115 63508 5 79.00 mm[Hg] - Sitting 143.00 mm[Hg] [...]
--- OUTSIDE RECORDS SUMMARY | 2024-07-26 11:11 | External Medical Summary | Continuity Of Care Document ---
Author Name Unknown Address [address] [place] [address] Organization [facility] () Care Team Providers Care Grinder Set Up Operator Thread Name Role Phone DO Pritchett Amy Primary Care Provider [phone] Allergies Allergy Reaction Start Date End Date Status AMINOGLYCOSIDES Active CIPRO Active GENTAMICIN Active NSAIDS (NON-STEROIDAL ANTI-INFLAMMATORY DRUG) 0 Active IBUPROFEN Active QUINOLONES Active VALIUM Active Medications Medication Instructions Dosage Start Date End Date Status Order Date Drug Code Frequency Route of Admin Diagnosis Code Substitutions Allowed Spikevax 4080-9588(1 2y up)(PF) 50 mcg/0.5 mL intramuscul ar suspension [COVID [id number](12 up)(andu)(P F)] 0.5mL Intramuscular 1 time Monitory 15 Minutes post injection for adverse effects; record site/temp For COVID 19 PREVENTION 0.5mL 01/02 Inactiv e 2023 88351 75429 4 1 time Intram uscula r False [facility] - Nurse initials indicate verificatio n that [id number] vaccine was administere d by [facility] jon 1 Intramuscular 1 time ( Indicate vaccine type) For vaccine 1 05/03 Inactiv e 2023 1 time Intram uscula r False Lisinopril 40 mg tablet [generic] TAKE ONE (1) TABLET BY MOUTH IN THE MORNING. For DX- HTN 1 2023 Active 2023 19522 67507 1 Once daily By Mouth False Tizanidine 2 mg tablet [generic] TAKE ONE (1) TABLET BY MOUTH ONCE DAILY For MUSCLE SPASM 1 2023 Active 2023 58773 31525 0 Once daily By Mouth M62.838 False Tamsulosin 0.4 mg capsule [generic] TAKE (1) CAPSULE BY MOUTH AT BEDTIME For SPASMS 1 2023 Active 2023 40021 32776 0 Once daily By Mouth False Aspirin 81 mg tablet Once daily 1 TABLET BY MOUTH IN THE MORNING For DX- CAD DO NOT CRUSH, CHEW OR BREAK 81 mg 06/12 Inactiv e 2023 Once daily By Mouth False Baclofen 20 mg tablet [generic] 20 mg By Mouth 4 times a day For DX- MUSCLE SPASMS 20 mg 12/12 Inactiv e 2023 69397 19902 1 4 times a day By Mouth False Calcium citrate 250 mg tablet Once daily 4 TABLET BY MOUTH For DX- SUPPLEMENT 250 mg calci 12/12 Inactiv e 2023 Once daily By Mouth False Co Q-10 100 mg capsule 100 mg By Mouth Once daily For DX- SUPPLEMENT 100 mg 06/20 Inactiv e 2023 98000 78511 5 Once daily By Mouth False Furosemide 20 mg tablet [generic] 20 mg By Mouth Once daily For DX-CHF 20 mg 12/12 Inactiv e 2023 64208 87318 0 Once daily By Mouth False Gabapentin 300 mg capsule [generic] 300 mg By Mouth 3 times a day For DX- NEUROPATHY 300 mg 12/12 Inactiv e 2023 82473 36302 4 3 times a day By Mouth False Loratadine 10 mg tablet [generic] 10 mg By Mouth Once daily For DX- ALLERGIES 10 mg 2023 Active 2023 63157 76068 1 Once daily By Mouth False Miralax 17 gram/dose oral powder 17 gram/dose By Mouth IN THE MORNING Mix 1 TABLESPOON IN 8 OZ OF FLUID HOLD FOR LOOSE STOOLS For DX- CONSTIPATION 17 gram/do se 12/12 Inactiv e 2023 87999 44635 0 Once daily By Mouth False Paroxetine 30 mg tablet [generic] 30 mg By Mouth Once daily For DX- DEPRESSION 30 mg 2023 00/00 /0000 Active 2023 01461 26015 3 Once daily By Mouth False Potassium citrate ER 15 mEq (1,620 mg) tablet,exte nded release [generic] 15 mEq By Mouth 3 times a day For DX- SUPPLEMENT/DI URETIC USE/ HYPOCITRAUIRA DO NOT CRUSH 15 mEq 12/12 Inactiv e 2023 71322 88534 1 3 times a day By Mouth [...] For DX- DANDRUFF 12/12 Inactiv e 2023 59398 57749 4 3 times a week Topica l False Acetaminoph en 325 mg tablet [generic] TAKE 2 TABS (650MG) BY MOUTH EVERY 4 HOURS NEEDED FOR TEMP >100 NOT TO EXCEED 3GM/24HRS TAKE 2 TABS (650MG) BY MOUTH EVERY 4 HOURS NEEDED FOR TEMP >100 NOT TO EXCEED 3GM/24HRS For DX-FEVER 2 12/12 Inactiv e 2023 54259 80856 0 By Mouth False MILK OF MAGNESIA ADMINISTER 30 ML BY MOUTH ONCE DAILY NEEDED FOR CONSTIPATION X3 DAYS WITH NO BM. For DX- CONSTIPATION 30ML 12/12 Inactiv e 2023 49221 68148 9 By Mouth False Enema Disposable 19 gram-7 gram/118 mL ADMINISTER ONE ENEMA RECTALLY ONCE DAILY NEEDED FOR CONSTIPATION ON DAY 6 OF NO BM For DX- CONSTIPATION 12/12 Inactiv e 2023 57858 05278 1 Rectal False TUMS EXTRA STR 750MG TAKE (1) TABLET BY MOUTH THREE TIMES DAILY NEEDED FOR INDIGESTION For DX- INDIGESTION 1 12/12 Inactiv e 2023 18646 43548 8 By Mouth False Vitamin D3 25 [...] CONSTIPATION 10 mg 12/12 Inactiv e 2023 86491 42406 1 Rectal False Melatonin 3 mg tablet [generic] 3 mg By Mouth As Needed For DX-INSOMMIA 3 mg 12/12 Inactiv e 2023 23630 81063 8 By Mouth False Hydrocortis one 1 % topical cream [generic] 1 % Topical As Needed For DX- PAIN 1 % 12/12 Inactiv e 2023 59507 84051 1 Topica l False HYDROCORTIS ONE/PARMOXI NE [...] 5-10 50 mg 12/20 Inactiv e 2023 46441 94051 0 Every 4 hours as needed By Mouth False Tylenol 325 mg tablet 325 mg By Mouth Every 4 hours as needed For DX- PAIN PRN FOR MILD PAIN, DO NOT EXCEED 3000MG APAP/24 HOURS 325 mg 12/20 Inactiv e 2023 04856 38753 0 Every 4 hours as needed By Mouth False Baclofen 20 mg tablet [generic] 20 mg By Mouth 4 times a day For MUSCLE SPASMS 20 mg 12/20 Inactiv e 2023 16006 78636 1 4 times a day By Mouth False Calcium citrate 250 mg tablet [generic] Once daily TAKE 4 TABLETS (1000MG) BY MOUTH For SUPPLEMENT 1000 MG 06/26 Inactiv e 2023 28526 22687 6 Once daily By Mouth False Dulcolax (bisacodyl) 10 mg rectal suppository 10 mg Rectal Once daily For CONSTIPATION *MAY HOLD FOR LOOSE STOOLS* 10 mg 2023 Active 2023 31896 23912 1 Once daily Rectal False Gabapentin 300 mg capsule [generic] 300 mg By Mouth 3 times a day For NEUROPATHY 300 mg 2023 Active 2023 71663 39189 4 3 times a day By Mouth False Potassium citrate ER 15 mEq (1,620 mg) tablet,exte nded release [generic] 15 mEq By Mouth 3 times a day For SUPPLEMENT/DI URETIC USE/HYPOCITRA URIA 15 mEq 06/11 Inactiv e 2023 18007 11723 1 3 times a day By Mouth False Potassium chloride ER 20 mEq tablet,exte nded release [generic] 20 mEq By Mouth 3 times a day *DO NOT CRUSH, CHEW OR BREAK* For SUPPLEMENT 20 mEq 12/18 Inactiv e 2023 47221 37863 1 3 times a day By Mouth False Tizanidine 4 mg tablet [generic] 4 mg By Mouth Once daily For MUSCLE SPASMS 4 mg 2023 Active 2023 63026 32046 0 Once daily By Mouth False Tylenol 325 mg tablet 2 tabs By Mouth Every 4 hours as needed For Fever >100 DO NOT EXCEED 3000 MG APAP/24 Hours 2 tabs 12/20 Inactiv e 2023 71583 66819 0 Every 4 hours as needed By Mouth False Dulcolax (bisacodyl) 10 mg rectal suppository Daily as needed For Constipation 1 sup 12/20 Inactiv e 2023 26990 88536 1 Daily as needed Rectal False Fleet Enema 19 gram-7 gram/118 mL 1 Rectal Daily as neededFor Constipation 1 12/20 Inactiv e 2023 04283 14090 6 Daily as needed Rectal False Milk of Magnesia 400 mg/5 mL oral suspension [Magnesium hydroxide] PRN 30ml By Mouth Daily as needed for constipation one time daily if no BM, on day 4 of no BM (PRN refer to instructions) For Constipation For Constipatioin 30ml 12/20 Inactiv e 2023 18461 36533 6 1 time By Mouth False Melatonin 3 mg tablet [generic] 3 mg By Mouth Once daily As Needed For INSOMNIA 3 mg 12/20 Inactiv e 2023 72871 55305 8 Once daily By Mouth False Hydrocortis one 1 % topical cream [generic] 1 % Rectal Four times daily as needed For hemorroid pain 1 % 12/20 Inactiv e 2023 84896 22953 1 Four times daily as needed Rectal False X-STGH ANTACID 750MG CHEW TAKE (1) TABLET BY MOUTH THREE TIMES DAILY NEEDED FOR INDIGESTION 12/20 Inactiv e 2023 17894 48755 4 Three times daily as needed Saline Mist 0.65 % nasal spray aerosol 0.65 % Nares Four times daily as needed For DRYNESS 0.65 % 12/20 Inactiv e 2023 78135 11379 8 Four times daily as needed Nares False Vicks Vaporub 4.7 %-1.2 %-2.6 % topical ointment Apply topically to chest Three times daily as needed For CONGESTION 4.7-1.2 -2.6 12/20 Inactiv e 2023 61853 58221 1 Three times daily as needed Topica l False VITAMIN D3 2000U CAP TAKE ONE (1) CAPSULE BY MOUTH DAILY* DO NOT CRUSH, CHEW OR BREAK* For Supplement 1 capsule 12/19 Inactiv e 2023 17878 13199 0 Once daily By Mouth False Potassium chloride ER 20 mEq tablet,exte nded release(par t/cryst) [generic] TAKE (1) TABLET BY MOUTH THREE TIMES DAILY (MORNING, AFTERNOON, EVENING)*DO NOT CRUSH, CHEW, OR BREAK* For SUPPLEMENT 20 MEQ 06/11 Inactiv e 2023 10504 93584 5 3 times a day By Mouth False Aspirin 81 mg tablet,camron yed release [generic] TAKE ONE (1) TABLET BY MOUTH ONCE DAILY*DO NOT CRUSH, CHEW OR BREAK* For CAD 81 MG 12/22 Inactiv e 2023 20351 71935 0 Once daily By Mouth False Furosemide 20 mg tablet [generic] TAKE 1 AND 1/2 TABLETS (30MG) BY MOUTH ONCE DAILY For CHF 30mg 2023 Active 2023 56021 29908 1 Once daily By Mouth False Polyethylen e glycol 3350 17 gram/dose oral powder [generic] MIX 17 GRAMS (1 CAPFUL) IN 60Z OF LIQUID AND DRINK BY MOUTH ONCE DAILY *HOLD FOR LOOSE STOOLS* For constipation 17 g 2023 Active 2023 34749 08547 3 Once daily By Mouth False Vitamin D3 50 mcg (2,000 unit) capsule Once daily TAKE ONE (1) CAPSULE BY MOUTH DAILY* DO NOT CRUSH, CHEW OR BREAK* For Supplement 1 capsule 02/07 Inactiv e 2023 46072 43530 2 Once daily By Mouth False Fleet Enema 19 gram-7 gram/118 mL 1 Rectal Daily as neededFor Constipation 1 2023 0000 Active 2023 27191 95072 6 Daily as needed Rectal False Tums E-X 300 mg (as calcium carbonate 750 mg) chewable tablet 1 tab By Mouth TAKE (1) TABLET BY MOUTH THREE TIMES DAILY NEEDED FOR INDIGESTION 1 tab 202300 /0000 Active 2023 24114 36117 1 Three times daily as needed By Mouth False Tylenol 325 mg tablet 2 tabs By Mouth Every 4 hours as needed For Fever >100 DO NOT EXCEED 3000 MG APAP/24 Hours 2 tabs 202300 /0000 Active 2023 47711 65050 0 Every 4 hours as needed By Mouth False Vicks Vaporub 4.7 %-1.2 %-2.6 % topical ointment Apply topically to chest Three times daily as needed For CONGESTION topical 202300 Active 2023 92185 64417 1 Three times daily as needed Topica l False Tylenol 325 mg tablet 2 tabs By Mouth Every 4 hours as needed For DX- PAIN PRN FOR MILD PAIN, DO NOT EXCEED 3000MG APAP/24 HOURS 2 tabs 202300 Active 2023 19394 98691 0 Every 4 hours as needed By Mouth False Tramadol 50 mg tablet [generic] 1 tab By Mouth Every 4 hours as needed For DX- PAIN 5-10 1 tab 03/10 Inactiv e 2023 16669 89898 0 Every 4 hours as needed By Mouth False Saline Mist 0.65 % nasal spray aerosol 2 sprays Nares Four times daily as needed For DRYNESS 2 sprays 202300 / Active 2023 93259 36196 8 Four times daily as needed Nares False Dulcolax (bisacodyl) 10 mg rectal suppository Daily as needed For Constipation 1 sup 202300 / Active 2023 29952 80583 1 Daily as needed Rectal False Hydrocortis one-pramoxi ne 1 %-1 % rectal cream [generic] 1 mague Rectal Four times daily as needed For hemorroid pain 1 mague 202300 /0000 Active 2023 69626 03041 4 Four times daily as needed Rectal False Melatonin 3 mg tablet [generic] 1 tab By Mouth At bedtime as needed For INSOMNIA 1 tab 12/24 Inactiv e 2023 51192 81141 8 At bedtime as needed By Mouth False Milk of Magnesia 400 mg/5 mL oral suspension 30ml By Mouth Daily as needed Daily as needed for constipation one time daily if no BM, on day 4 of no BM (PRN refer to instructions) For Constipation For Constipatioin 30ml 2023 Active 2023 07987 79808 2 Daily as needed By Mouth False Baclofen 20 mg tablet [generic] 20 mg By Mouth 4 times a day For MUSCLE SPASMS 20 mg 2023 Active 2023 35972 81109 1 4 times a day By Mouth False Melatonin 3 mg tablet [generic] 1 tab By Mouth At bedtime as needed For INSOMNIA 1 tab 2023 Active 2023 27800 12576 8 At bedtime as needed By Mouth False Bactrim DS 800 mg-160 mg tablet 1 tab By Mouth Twice daily For URINARY TRACT INFECTION, SITE NOT SPECIFIED 1 tab 01/06 Inactiv e 2023 19146 46016 1 Twice daily By Mouth N39.0 False Cefdinir 300 mg capsule [generic] 300 mg By Mouth Twice daily For UTI 300 mg 01/07 Inactiv e 2023 17161 81811 0 Twice daily By Mouth False Cefdinir 300 mg capsule [generic] 300 mg By Mouth Twice daily For UTI 300 mg 01/17 Inactiv e 2023 60355 96907 0 Twice daily By Mouth False Zyrtec 10 mg tablet 10 mg By Mouth Once daily For sinus congestion 10 mg 01/22 Inactiv e 2023 46925 11831 0 Once daily By Mouth False Tobramycin 0.3 %-dexametha sone 0.1 % eye drops,suspe nsion [generic] 0.3-0.1 % Left Eye 4 times a day For eye infection 0.3-0.1 % 02/05 Inactiv e 2023 30597 68019 5 4 times a day Left Eye False Fluconazole 150 mg tablet [generic] 150 mg By Mouth 1 time For yeast infection 150 mg 02/15 Inactiv e 2023 03072 74434 2 1 time By Mouth False Tramadol 50 mg tablet [generic] 1 tab By Mouth Every 4 hours as needed For DX- PAIN 5-10 1 tab 2023 00/00 /0000 Active 2023 70128 53529 0 Every 4 hours as needed By Mouth False Tobramycin 0.3 %-dexametha sone 0.1 % eye drops,suspe nsion [generic] 1 drop Left Eye 4 times a day For Inflammation of left eye 1 drop 05/08 Inactiv e 2023 72684 99171 5 4 times a day Left Eye False Voltaren Arthritis Pain 1 % topical gel 2 gm Topical Twice daily to rigth shoulder for 2 weeks For pain 2 gm 05/08 Inactiv e 2023 72297 28838 1 Twice daily Topica l False Chlorthalid one 25 mg tablet [generic] 12.5mg By Mouth Once daily For HTN 12.5mg 05/06 Inactiv e 2023 24387 96258 0 Once daily By Mouth False Chlorthalid one 25 mg tablet [generic] 12.5mg By Mouth Once daily For HTN 12.5mg 05/07 Inactiv e 2023 11437 72572 0 Once daily By Mouth False Chlorthalid one 25 mg tablet [generic] 05/07 Inactiv e 2023 26817 95558 0 Chlorthalid one 25 mg tablet [generic] 12.5mg By Mouth Once daily For HTN 12.5mg 06/26 Inactiv e 2023 98157 52879 0 Once daily By Mouth False Norvasc 5 mg tablet 5mg By Mouth Once daily, hold medication if systolic is less than 90 For HYPERTENSIVE HEART DISEASE WITHOUT HEART FAILURE 5mg 06/03 Inactiv e 2023 09169 33219 1 Once daily By Mouth I11.9 False Norvasc 5 mg tablet 5mg By Mouth Once daily, hold medication if systolic is less than 90 For HYPERTENSIVE HEART DISEASE WITHOUT HEART FAILURE 5mg 06/03 Inactiv e 2023 62751 46579 1 Once daily By Mouth I11.9 False Norvasc 5 mg tablet 5mg By Mouth Once daily, hold medication if systolic is less than 90 For HYPERTENSIVE HEART DISEASE WITHOUT HEART FAILURE 5mg 06/26 Inactiv e 2023 42512 73571 1 Once daily By Mouth I11.9 False [...] 10 mg 2023 00/00 /0000 Active 2023 23966 97226 1 Once daily By Mouth False DISCONTINUE [...] CAD 81 mg 06/14 Inactiv e 2023 54703 02925 9 Once daily By Mouth False Aspirin 81 mg tablet,camron yed release [generic] 06/14 Inactiv e 2023 97715 05963 9 Aspirin 81 mg tablet,camron yed release [generic] 81 mg By Mouth Once daily Do not crush, chew, or break For CAD 81 mg 06/154 Inactiv e 2023 06406 07559 9 Once daily By Mouth False Cefpodoxime 200 mg tablet [generic] 200mg By Mouth Twice daily For UTI 200mg 07/04 Inactiv e 2023 40673 90286 0 Twice daily By Mouth False Calcium citrate 250 mg tablet [generic] 06/26 Inactiv e 2023 62892 40226 6 Calcium citrate 250 mg tablet [generic] Once daily TAKE 4 TABLETS (1000MG) BY MOUTH For SUPPLEMENT 500 MG 2023 Active 2023 15251 64041 6 Once daily By Mouth False Norvasc 5 mg tablet 7.5 mg By Mouth Once daily Hold medication if SBP <90 For HYPERTENSIVE HEART DISEASE WITHOUT HEART FAILURE 7.5 mg 06/30 Inactiv e 2023 37112 32563 1 Once daily By Mouth I11.9 False Norvasc 5 mg tablet 7.5 mg By Mouth Once daily Hold medication if SBP <90 For HYPERTENSIVE HEART DISEASE WITHOUT HEART FAILURE 7.5 mg 07/06 Inactiv e 2023 50723 35535 1 Once daily By Mouth I11.9 False Simethicone 125 mg capsule [generic] 2 capule By Mouth Twice daily as needed For bloating/gas pain 2 capule 2023 Active 2023 50358 12362 0 Twice daily as needed By Mouth False Cepacol Sore Throat (benzocaine -menthol) 15 mg-2.6 mg lozenges 2 lozenges By Mouth Every 6 hours as needed For sore throat 2 lozenge s 2023 Active 2023 91149 95877 6 Every 6 hours as needed By Mouth False Cefepime 1 gram solution for injection [generic] 1g Intramuscular Every 12 hours 1g intramuscular ly ever 12 hours For UTI 1g 07/06 Inactiv e 2023 36640 52899 4 Every 12 hours Intram uscula r False Cefepime 1 gram solution for injection [generic] 07/06 Inactiv e 2023 44188 86663 4 Cefepime 1 gram solution for injection [generic] 1g Intramuscular Every 12 hours 1g intramuscular ly ever 12 hours For UTI Reconstitute with 2.4 ML of NSS. 1g 07/08 Inactiv e 2023 75882 20112 4 Every 12 hours Intram uscula r False Norvasc 5 mg tablet 07/06 Inactiv e 2023 90101 17768 1 I11.9 Norvasc 5 mg tablet 7.5 mg By Mouth Once daily Hold medication if SBP <90 For HYPERTENSIVE HEART DISEASE WITHOUT HEART FAILURE 7.5 mg 07/18 Inactiv e 2023 18141 94035 1 Once daily By Mouth I11.9 False Cefepime 1 gram solution for injection [generic] 07/08 Inactiv e 2023 96022 38715 4 Cefepime 1 gram solution for injection [generic] 1g Intramuscular Every 12 hours 1g intramuscular ly ever 12 hours For UTI Reconstitute with 2.4 ML of NSS. 1g 07/08 Inactiv e 2023 78270 88947 4 Every 12 hours Intram uscula r False Cefepime 1 gram solution for injection [generic] 07/08 Inactiv e 2023 92638 10100 4 Cefepime 1 gram solution for injection [generic] 1g Intramuscular Every 12 hours 1g intramuscular ly ever 12 hours For UTI Reconstitute with 2.4 ML of NSS. 1g 07/11 Inactiv e 2023 00984 46813 4 Every 12 hours Intram uscula r False Fleet Enema 19 gram-7 gram/118 mL 1 Rectal 1 time For constipation 1 07/16 Inactiv e 2024 84059 15792 6 1 time Rectal False Fleet Enema 19 gram-7 gram/118 mL 1 Rectal 1 time For constipation 1 07/17 Inactiv e 2024 76411 01015 6 1 time Rectal False Norvasc 5 mg tablet 7.5 mg By Mouth Once daily For HYPERTENSIVE HEART DISEASE WITHOUT HEART FAILURE 7.5 mg 2024 00/00 /0000 Active 2024 25207 25746 1 Once daily By Mouth I11.9 False Potassium chloride ER 20 mEq tablet,exte nded release(par t/cryst) [generic] 40 mEq By Mouth 1 time For low potassium prior to surgery 40 mEq 07/18 Inactiv e 2024 03493 09584 1 1 time By Mouth False Potassium chloride ER 20 mEq tablet,exte nded release(par t/cryst) [generic] 40 mEq By Mouth 1 time For low potassium prior to surgery 40 mEq 07/18 Inactiv e 2024 30624 93154 1 1 time By Mouth False Potassium chloride ER 20 mEq tablet,exte nded release(par t/cryst) [generic] 40 mEq By Mouth 1 time For low potassium 40 mEq 07/18 Inactiv e 2024 81537 91225 1 1 time By Mouth False Potassium chloride ER 20 mEq tablet,exte nded release(par t/cryst) [generic] 40 mEq By Mouth 1 time For low potassium 40 mEq 07/18 Inactiv e 2024 91412 51699 1 1 time By Mouth False Potassium chloride ER 20 mEq tablet,exte nded release [generic] 2 By Mouth 1 time For low potassium 2 07/19 Inactiv e 2024 38452 07118 1 1 time By Mouth False Potassium chloride ER 20 mEq tablet,exte nded release [generic] 2 capsules capsules By Mouth 1 time Please send capsule (2 capsules) For low potassium 2 capsule s 07/20 Inactiv e 2024 51764 21202 1 1 time By Mouth False Potassium chloride ER 20 mEq tablet,exte nded release(par t/cryst) [generic] TAKE (2) TABLETS (40MEQ) BY MOUTH X1 DOSE 07/20 Inactiv e 2024 90044 85934 5 Cefepime 1 gram solution for injection [generic] 1 gram Intramuscular Every 12 hours For Urinary Tract Infection 1 gram 07/21 Inactiv e 2024 98229 73738 4 Every 12 hours Intram uscula r False Cefepime 1 gram solution for injection [generic] 07/21 Inactiv e 2024 54920 37509 4 Cefepime 1 gram solution for injection [generic] 1 gram Intramuscular Every 12 hours For Urinary Tract Infection 1 gram 07/22 Inactiv e 2024 69855 61578 4 Every 12 hours Intram uscula r False Cefepime 1 gram solution for injection [generic] 1 gram Intramuscular Every 12 hours For Urinary Tract Infection 1 gram 07/24 Inactiv e 2024 00864 33130 4 Every 12 hours Intram uscula r False Klor-Con 10 mEq tablet,exte nded release Klor- Con GIVE 2 Capsules daily Do NOT SEND Tablets Requesting Micro K 10 meq capsules For hyponatremia 2 capsule s 2024 00/00 /0000 Active 2024 77739 19710 1 Once daily By Mouth False Cefepime 1 gram solution for injection [generic] 1 gram Intramuscular Every 12 hours For Urinary Tract Infection 1 gram 2024 00/00 /0000 Active 2024 28697 47486 4 Every 12 hours Intram uscula r False Nystatin 100,000 unit/gram topical cream [generic] 100,000 unit Topical As Needed For DX- EXCORIATION 100,000 unit 12/12 Inactiv e 2023 36856 70876 5 Topica l False Vicks Vaporub 4.7 %-1.2 %-2.6 % topical ointment 4.7-1.2-2.6 Topical 3 times a day As Needed For DX- CONGESTION 4.7-1.2 -2.6 12/12 Inactiv e 2023 31485 74407 1 3 times a day Topica l False Ketoconazol e 2 % shampoo [generic] APPLY SHAMPOO TOPICALLY TO SCALP DURING HAIR WASHINGDX: ELVIA DERM OF SCALP For DX- ELVIA DERM OF SCALP 12/12 Inactiv e 2023 83904 75599 4 Topica l False THERA SILICONE SKIN GUARD Topical Twice daily 1 APPLICATION TOPICALLY IN THE MORNING AND AT BEDTIME TO SCROTUM For DX- PREVENTION 2023 Active 2023 Twice daily Topica l False Selenium sulfide 2.5 % lotion [generic] 2.5 % Topical EVERY MONDAY, MONDAY AND MONDAY AFTER SHOWER For DANDRUFF 2.5 % 2023 Active 2023 49770 48479 4 3 times a week Topica l False Nystatin (bulk) 100 million unit powder [generic] 100 million Topical Twice daily as needed For EXOCORATION 100 million 12/20 Inactiv e 2023 22249 03452 1 Twice daily as needed Topica l False Ketoconazol e 2 % shampoo [generic] Once daily APPLY SHAMPOO TOPICALLY TO SCALP DURING HAIR WASHING ON SHOWER DAYS- , , MON For ELVIA DERM OF SCAP 2 % 2023 Active 2023 67710 98844 4 Once daily Topica l False Nystatin 100,000 unit/gram topical cream [generic] 1 mague Topical Twice daily as needed For EXOCORATION 1 mague 06/05 Inactiv e 2023 87835 65683 5 Twice daily as needed Topica l False Nystatin 100,000 unit/gram topical powder [generic] 100,000 unit Topical Twice daily to scrotum with AM and PM care For Scrotal excoriation 100,000 unit 06/05 Inactiv e 2023 64932 97861 5 Twice daily Topica l False Problems [...] adjustment of urinary device 07/21/2023 Active Z79.01 [facility] (current) use of anticoagulants 07/21 Active N31.9 [...] weight Temperature SpO2 Blood Sugar Pulse Respirations 05674 216 54016 1 254.10 [place] [address] 216 36591 2 79.00 mm[Hg] - Sitting 157.00 mm[Hg] - Sitting 73 NI 254.10 NI 36.30 Tympanic 95.00 % 72.00/ min 16.00/min 95672 216 46625 4 98.80 Tympanic 37806 216 71168 2 78.00 mm[Hg] - Sitting 164.00 mm[Hg] - Sitting 09754 217 66276 3 98.20 Tympanic 82983 217 15893 5 73.00 mm[Hg] - Sitting 159.00 mm[Hg] - Sitting 66872 217 41719 9 98.40 Forehead Scan 21074 218 33173 3 97.90 Tympanic 54487 218 18611 5 77.00 mm[Hg] - Sitting 137.00 mm[Hg] - Sitting 42367 219 99667 0 97.70 Tympanic 59720 219 00250 6 97.60 Tympanic 30271 219 09327 4 76.00 mm[Hg] - Sitting 139.00 mm[Hg] - Sitting 40027 219 87410 4 97.80 Forehead Scan 87519 220 51781 9 97.90 Tympanic 89792 220 39235 9 76.00 mm[Hg] - Sitting 138.00 mm[Hg] - Sitting 25052 220 38607 6 98.10 Tympanic 05946 221 68579 5 67.00 mm[Hg] - Sitting 142.00 mm[Hg] - Sitting 13885 221 27677 8 98.20 Tympanic 56829 221 41783 0 98.30 Tympanic 69312 222 04821 7 98.20 Tympanic 79739 222 52551 8 97.90 Tympanic 23106 223 73850 3 98.20 Tympanic 36803 223 99167 3 98.00 Tympanic 92903 224 60764 0 59.00 mm[Hg] - Sitting 111.00 mm[Hg] - Sitting 98.40 Forehead Scan 95.00 % 56.00/ min 18.00/min 73938 224 82245 9 98.20 Forehead Scan 94646 224 51260 3 97.90 Tympanic 49805 225 94904 4 98.20 Tympanic 87959 225 88880 8 97.50 Forehead Scan 61055 228 18748 0 55.00 mm[Hg] - Sitting 118.00 mm[Hg] - Sitting 98.40 Tympanic 69.00/ min 65542 229 05997 8 78.00 mm[Hg] - Sitting 152.00 mm[Hg] - Sitting 24249 230 93275 0 62.00 mm[Hg] - Sitting 122.00 mm[Hg] - Sitting 07363 231 54537 7 72.00 mm[Hg] - Lying Down 140.00 mm[Hg] - Lying Down 86986 101 43204 3 97.70 Forehead Scan 06463 101 28063 1 254.10 NI 69.00/ min 32095 101 52715 9 72.00 mm[Hg] - Sitting 142.00 mm[Hg] - Sitting 97.70 Tympanic 18.00/min 61760 101 54134 3 72.00 mm[Hg] - Lying Down 142.00 mm[Hg] - Lying Down 60376 102 83290 8 68.00 mm[Hg] - Lying Down 152.00 mm[Hg] - Lying Down 30218 103 52140 5 74.00 mm[Hg] - Sitting 158.00 mm[Hg] - Sitting 59201 104 83368 9 78.00 mm[Hg] - Sitting 144.00 mm[Hg] - Sitting 35535 105 73771 5 68.00 mm[Hg] - Sitting 138.00 mm[Hg] - Sitting 30763 106 36472 1 70.00 mm[Hg] - Sitting 138.00 mm[Hg] - Sitting 26679 107 27486 1 67.00 mm[Hg] - Sitting 142.00 mm[Hg] - Sitting 58362 108 67125 0 74.00 mm[Hg] - Sitting 143.00 mm[Hg] - Sitting 85280 110 42102 6 85.00 mm[Hg] - Sitting 160.00 mm[Hg] - Sitting 97.80 Tympanic 93.00 % 76.00/ min 18.00/min 52775 111 63579 1 83.00 mm[Hg] - Sitting 129.00 mm[Hg] - Sitting 98.60 Tympanic 92.00 % 71.00/ min 18.00/min 11126 111 16635 5 60.00 mm[Hg] - Sitting 114.00 mm[Hg] - Sitting 98.70 Tympanic 92.00 % 76.00/ min 18.00/min 24789 112 59266 4 55.00 mm[Hg] - Sitting 125.00 mm[Hg] - Sitting 98.60 Tympanic 91.00 % 68.00/ min 18.00/min 33079 112 48373 9 75.00 mm[Hg] - Sitting 174.00 mm[Hg] - Sitting 97.70 Tympanic 96.00 % 71.00/ min 18.00/min 21565 113 38419 2 77.00 mm[Hg] - Sitting 139.00 mm[Hg] - Sitting 98.10 Tympanic 97.00 % 81.00/ min 18.00/min 42223 113 95254 4 78.00 mm[Hg] - Sitting 153.00 mm[Hg] - Sitting 98.40 Tympanic 93.00 % 69.00/ min 18.00/min 17410 114 13958 5 76.00 mm[Hg] - Sitting 137.00 mm[Hg] - Sitting 98.10 Tympanic 97.00 % 80.00/ min 18.00/min 42035 114 93286 0 76.00 mm[Hg] - Sitting 145.00 mm[Hg] - Sitting 97.90 Tympanic 98.00 % 73.00/ min 18.00/min 53316 115 28376 3 98.40 Tympanic 14574 115 92713 5 79.00 mm[Hg] - Sitting 143.00 mm[Hg] [...]
--- OUTSIDE RECORDS SUMMARY | 2024-07-26 11:12 | External Medical Summary | Continuity Of Care Document ---
Author Name Unknown Address [address] [address] Organization [facility] () Care Team Providers Care Irrigation Worker Name Role Phone DO Pritchett Amy Primary Care Provider [phone] Allergies Allergy Reaction Start Date End Date Status AMINOGLYCOSIDES Active CIPRO Active GENTAMICIN Active NSAIDS (NON-STEROIDAL ANTI-INFLAMMATORY DRUG) 0 Active IBUPROFEN Active QUINOLONES Active VALIUM Active Medications Medication Instructions Dosage Start Date End Date Status Order Date Drug Code Frequency Route of Admin Diagnosis Code Substitutions Allowed Spikevax [id number](1 2y up)(PF) 50 mcg/0.5 mL intramuscul ar suspension [COVID [id number](12 up)(andu)(P F)] 0.5mL Intramuscular 1 time Monitory 15 Minutes post injection for adverse effects; record site/temp For COVID 19 PREVENTION 0.5mL 01/02 Inactiv e 2023 86632 19814 4 1 time Intram uscula r False [facility] - Nurse initials indicate verificatio n that [id number] vaccine was administere d by [facility] jon 1 Intramuscular 1 time ( Indicate vaccine type) For vaccine 1 05/03 Inactiv e 2023 1 time Intram uscula r False Lisinopril 40 mg tablet [generic] TAKE ONE (1) TABLET BY MOUTH IN THE MORNING. For DX- HTN 1 2023 Active 2023 45060 98573 1 Once daily By Mouth False Tizanidine 2 mg tablet [generic] TAKE ONE (1) TABLET BY MOUTH ONCE DAILY For MUSCLE SPASM 1 2023 Active 2023 94183 64213 0 Once daily By Mouth M62.838 False Tamsulosin 0.4 mg capsule [generic] TAKE (1) CAPSULE BY MOUTH AT BEDTIME For SPASMS 1 2023 Active 2023 96314 66538 0 Once daily By Mouth False Aspirin 81 mg tablet Once daily 1 TABLET BY MOUTH IN THE MORNING For DX- CAD DO NOT CRUSH, CHEW OR BREAK 81 mg 06/12 Inactiv e 2023 Once daily By Mouth False Baclofen 20 mg tablet [generic] 20 mg By Mouth 4 times a day For DX- MUSCLE SPASMS 20 mg 12/12 Inactiv e 2023 92427 60765 1 4 times a day By Mouth False Calcium citrate 250 mg tablet Once daily 4 TABLET BY MOUTH For DX- SUPPLEMENT 250 mg calci 12/12 Inactiv e 2023 Once daily By Mouth False Co Q-10 100 mg capsule 100 mg By Mouth Once daily For DX- SUPPLEMENT 100 mg 06/20 Inactiv e 2023 80081 12952 5 Once daily By Mouth False Furosemide 20 mg tablet [generic] 20 mg By Mouth Once daily For DX-CHF 20 mg 12/12 Inactiv e 2023 63145 16631 0 Once daily By Mouth False Gabapentin 300 mg capsule [generic] 300 mg By Mouth 3 times a day For DX- NEUROPATHY 300 mg 12/12 Inactiv e 2023 45629 22895 4 3 times a day By Mouth False Loratadine 10 mg tablet [generic] 10 mg By Mouth Once daily For DX- ALLERGIES 10 mg 2023 Active 2023 95609 85485 1 Once daily By Mouth False Miralax 17 gram/dose oral powder 17 gram/dose By Mouth IN THE MORNING Mix 1 TABLESPOON IN 8 OZ OF FLUID HOLD FOR LOOSE STOOLS For DX- CONSTIPATION 17 gram/do se 12/12 Inactiv e 2023 02557 25576 0 Once daily By Mouth False Paroxetine 30 mg tablet [generic] 30 mg By Mouth Once daily For DX- DEPRESSION 30 mg 2023 00/00 /0000 Active 2023 87199 93722 3 Once daily By Mouth False Potassium citrate ER 15 mEq (1,620 mg) tablet,exte nded release [generic] 15 mEq By Mouth 3 times a day For DX- SUPPLEMENT/DI URETIC USE/ HYPOCITRAUIRA DO NOT CRUSH 15 mEq 12/12 Inactiv e 2023 85429 97380 1 3 times a day By Mouth [...] For DX- DANDRUFF 12/12 Inactiv e 2023 23151 83907 4 3 times a week Topica l False Acetaminoph en 325 mg tablet [generic] TAKE 2 TABS (650MG) BY MOUTH EVERY 4 HOURS NEEDED FOR TEMP >100 NOT TO EXCEED 3GM/24HRS TAKE 2 TABS (650MG) BY MOUTH EVERY 4 HOURS NEEDED FOR TEMP >100 NOT TO EXCEED 3GM/24HRS For DX-FEVER 2 12/12 Inactiv e 2023 90294 63567 0 By Mouth False MILK OF MAGNESIA ADMINISTER 30 ML BY MOUTH ONCE DAILY NEEDED FOR CONSTIPATION X3 DAYS WITH NO BM. For DX- CONSTIPATION 30ML 12/12 Inactiv e 2023 82366 13880 9 By Mouth False Enema Disposable 19 gram-7 gram/118 mL ADMINISTER ONE ENEMA RECTALLY ONCE DAILY NEEDED FOR CONSTIPATION ON DAY 6 OF NO BM For DX- CONSTIPATION 12/12 Inactiv e 2023 47825 04661 1 Rectal False TUMS EXTRA STR 750MG TAKE (1) TABLET BY MOUTH THREE TIMES DAILY NEEDED FOR INDIGESTION For DX- INDIGESTION 1 12/12 Inactiv e 2023 27038 72675 8 By Mouth False Vitamin D3 25 [...] CONSTIPATION 10 mg 12/12 Inactiv e 2023 49238 35409 1 Rectal False Melatonin 3 mg tablet [generic] 3 mg By Mouth As Needed For DX-INSOMMIA 3 mg 12/12 Inactiv e 2023 38506 80781 8 By Mouth False Hydrocortis one 1 % topical cream [generic] 1 % Topical As Needed For DX- PAIN 1 % 12/12 Inactiv e 2023 41880 30550 1 Topica l False HYDROCORTIS ONE/PARMOXI NE [...] 5-10 50 mg 12/20 Inactiv e 2023 36101 09485 0 Every 4 hours as needed By Mouth False Tylenol 325 mg tablet 325 mg By Mouth Every 4 hours as needed For DX- PAIN PRN FOR MILD PAIN, DO NOT EXCEED 3000MG APAP/24 HOURS 325 mg 12/20 Inactiv e 2023 46374 04703 0 Every 4 hours as needed By Mouth False Baclofen 20 mg tablet [generic] 20 mg By Mouth 4 times a day For MUSCLE SPASMS 20 mg 12/20 Inactiv e 2023 61599 82393 1 4 times a day By Mouth False Calcium citrate 250 mg tablet [generic] Once daily TAKE 4 TABLETS (1000MG) BY MOUTH For SUPPLEMENT 1000 MG 06/26 Inactiv e 2023 70111 45811 6 Once daily By Mouth False Dulcolax (bisacodyl) 10 mg rectal suppository 10 mg Rectal Once daily For CONSTIPATION *MAY HOLD FOR LOOSE STOOLS* 10 mg 2023 Active 2023 09545 91432 1 Once daily Rectal False Gabapentin 300 mg capsule [generic] 300 mg By Mouth 3 times a day For NEUROPATHY 300 mg 2023 Active 2023 05748 53354 4 3 times a day By Mouth False Potassium citrate ER 15 mEq (1,620 mg) tablet,exte nded release [generic] 15 mEq By Mouth 3 times a day For SUPPLEMENT/DI URETIC USE/HYPOCITRA URIA 15 mEq 06/11 Inactiv e 2023 68629 09169 1 3 times a day By Mouth False Potassium chloride ER 20 mEq tablet,exte nded release [generic] 20 mEq By Mouth 3 times a day *DO NOT CRUSH, CHEW OR BREAK* For SUPPLEMENT 20 mEq 12/18 Inactiv e 2023 12561 66390 1 3 times a day By Mouth False Tizanidine 4 mg tablet [generic] 4 mg By Mouth Once daily For MUSCLE SPASMS 4 mg 2023 Active 2023 50111 75396 0 Once daily By Mouth False Tylenol 325 mg tablet 2 tabs By Mouth Every 4 hours as needed For Fever >100 DO NOT EXCEED 3000 MG APAP/24 Hours 2 tabs 12/20 Inactiv e 2023 98758 36191 0 Every 4 hours as needed By Mouth False Dulcolax (bisacodyl) 10 mg rectal suppository Daily as needed For Constipation 1 sup 12/20 Inactiv e 2023 03048 06312 1 Daily as needed Rectal False Fleet Enema 19 gram-7 gram/118 mL 1 Rectal Daily as neededFor Constipation 1 12/20 Inactiv e 2023 46642 24713 6 Daily as needed Rectal False Milk of Magnesia 400 mg/5 mL oral suspension [Magnesium hydroxide] PRN 30ml By Mouth Daily as needed for constipation one time daily if no BM, on day 4 of no BM (PRN refer to instructions) For Constipation For Constipatioin 30ml 12/20 Inactiv e 2023 61929 55736 6 1 time By Mouth False Melatonin 3 mg tablet [generic] 3 mg By Mouth Once daily As Needed For INSOMNIA 3 mg 12/20 Inactiv e 2023 99942 92176 8 Once daily By Mouth False Hydrocortis one 1 % topical cream [generic] 1 % Rectal Four times daily as needed For hemorroid pain 1 % 12/20 Inactiv e 2023 35261 30252 1 Four times daily as needed Rectal False X-STGH ANTACID 750MG CHEW TAKE (1) TABLET BY MOUTH THREE TIMES DAILY NEEDED FOR INDIGESTION 12/20 Inactiv e 2023 40929 92415 4 Three times daily as needed Saline Mist 0.65 % nasal spray aerosol 0.65 % Nares Four times daily as needed For DRYNESS 0.65 % 12/20 Inactiv e 2023 84936 92423 8 Four times daily as needed Nares False Vicks Vaporub 4.7 %-1.2 %-2.6 % topical ointment Apply topically to chest Three times daily as needed For CONGESTION 4.7-1.2 -2.6 12/20 Inactiv e 2023 16570 45348 1 Three times daily as needed Topica l False VITAMIN D3 2000U CAP TAKE ONE (1) CAPSULE BY MOUTH DAILY* DO NOT CRUSH, CHEW OR BREAK* For Supplement 1 capsule 12/19 Inactiv e 2023 48612 44872 0 Once daily By Mouth False Potassium chloride ER 20 mEq tablet,exte nded release(par t/cryst) [generic] TAKE (1) TABLET BY MOUTH THREE TIMES DAILY (MORNING, AFTERNOON, EVENING)*DO NOT CRUSH, CHEW, OR BREAK* For SUPPLEMENT 20 MEQ 06/11 Inactiv e 2023 63991 55642 5 3 times a day By Mouth False Aspirin 81 mg tablet,camron yed release [generic] TAKE ONE (1) TABLET BY MOUTH ONCE DAILY*DO NOT CRUSH, CHEW OR BREAK* For CAD 81 MG 12/22 Inactiv e 2023 93391 32455 0 Once daily By Mouth False Furosemide 20 mg tablet [generic] TAKE 1 AND 1/2 TABLETS (30MG) BY MOUTH ONCE DAILY For CHF 30mg 2023 Active 2023 31130 86596 1 Once daily By Mouth False Polyethylen e glycol 3350 17 gram/dose oral powder [generic] MIX 17 GRAMS (1 CAPFUL) IN 60Z OF LIQUID AND DRINK BY MOUTH ONCE DAILY *HOLD FOR LOOSE STOOLS* For constipation 17 g 2023 Active 2023 09843 81293 3 Once daily By Mouth False Vitamin D3 50 mcg (2,000 unit) capsule Once daily TAKE ONE (1) CAPSULE BY MOUTH DAILY* DO NOT CRUSH, CHEW OR BREAK* For Supplement 1 capsule 02/07 Inactiv e 2023 32528 73964 2 Once daily By Mouth False Fleet Enema 19 gram-7 gram/118 mL 1 Rectal Daily as neededFor Constipation 1 2023 0000 Active 2023 92948 24303 6 Daily as needed Rectal False Tums E-X 300 mg (as calcium carbonate 750 mg) chewable tablet 1 tab By Mouth TAKE (1) TABLET BY MOUTH THREE TIMES DAILY NEEDED FOR INDIGESTION 1 tab 202300 /0000 Active 2023 61230 97689 1 Three times daily as needed By Mouth False Tylenol 325 mg tablet 2 tabs By Mouth Every 4 hours as needed For Fever >100 DO NOT EXCEED 3000 MG APAP/24 Hours 2 tabs 202300 /0000 Active 2023 76538 36576 0 Every 4 hours as needed By Mouth False Vicks Vaporub 4.7 %-1.2 %-2.6 % topical ointment Apply topically to chest Three times daily as needed For CONGESTION topical 202300 Active 2023 04784 88958 1 Three times daily as needed Topica l False Tylenol 325 mg tablet 2 tabs By Mouth Every 4 hours as needed For DX- PAIN PRN FOR MILD PAIN, DO NOT EXCEED 3000MG APAP/24 HOURS 2 tabs 202300 Active 2023 54006 05088 0 Every 4 hours as needed By Mouth False Tramadol 50 mg tablet [generic] 1 tab By Mouth Every 4 hours as needed For DX- PAIN 5-10 1 tab 03/10 Inactiv e 2023 10579 16065 0 Every 4 hours as needed By Mouth False Saline Mist 0.65 % nasal spray aerosol 2 sprays Nares Four times daily as needed For DRYNESS 2 sprays 202300 / Active 2023 19189 36453 8 Four times daily as needed Nares False Dulcolax (bisacodyl) 10 mg rectal suppository Daily as needed For Constipation 1 sup 202300 / Active 2023 33602 22223 1 Daily as needed Rectal False Hydrocortis one-pramoxi ne 1 %-1 % rectal cream [generic] 1 mague Rectal Four times daily as needed For hemorroid pain 1 mague 202300 /0000 Active 2023 27958 30140 4 Four times daily as needed Rectal False Melatonin 3 mg tablet [generic] 1 tab By Mouth At bedtime as needed For INSOMNIA 1 tab 12/24 Inactiv e 2023 90266 74822 8 At bedtime as needed By Mouth False Milk of Magnesia 400 mg/5 mL oral suspension 30ml By Mouth Daily as needed Daily as needed for constipation one time daily if no BM, on day 4 of no BM (PRN refer to instructions) For Constipation For Constipatioin 30ml 2023 Active 2023 01472 02407 2 Daily as needed By Mouth False Baclofen 20 mg tablet [generic] 20 mg By Mouth 4 times a day For MUSCLE SPASMS 20 mg 2023 Active 2023 43305 29295 1 4 times a day By Mouth False Melatonin 3 mg tablet [generic] 1 tab By Mouth At bedtime as needed For INSOMNIA 1 tab 2023 Active 2023 03623 16325 8 At bedtime as needed By Mouth False Bactrim DS 800 mg-160 mg tablet 1 tab By Mouth Twice daily For URINARY TRACT INFECTION, SITE NOT SPECIFIED 1 tab 01/06 Inactiv e 2023 04554 53639 1 Twice daily By Mouth N39.0 False Cefdinir 300 mg capsule [generic] 300 mg By Mouth Twice daily For UTI 300 mg 01/07 Inactiv e 2023 75485 85990 0 Twice daily By Mouth False Cefdinir 300 mg capsule [generic] 300 mg By Mouth Twice daily For UTI 300 mg 01/17 Inactiv e 2023 54309 71466 0 Twice daily By Mouth False Zyrtec 10 mg tablet 10 mg By Mouth Once daily For sinus congestion 10 mg 01/22 Inactiv e 2023 98199 85443 0 Once daily By Mouth False Tobramycin 0.3 %-dexametha sone 0.1 % eye drops,suspe nsion [generic] 0.3-0.1 % Left Eye 4 times a day For eye infection 0.3-0.1 % 02/05 Inactiv e 2023 50655 91563 5 4 times a day Left Eye False Fluconazole 150 mg tablet [generic] 150 mg By Mouth 1 time For yeast infection 150 mg 02/15 Inactiv e 2023 70849 77437 2 1 time By Mouth False Tramadol 50 mg tablet [generic] 1 tab By Mouth Every 4 hours as needed For DX- PAIN 5-10 1 tab 2023 00/00 /0000 Active 2023 96849 89893 0 Every 4 hours as needed By Mouth False Tobramycin 0.3 %-dexametha sone 0.1 % eye drops,suspe nsion [generic] 1 drop Left Eye 4 times a day For Inflammation of left eye 1 drop 05/08 Inactiv e 2023 58005 61853 5 4 times a day Left Eye False Voltaren Arthritis Pain 1 % topical gel 2 gm Topical Twice daily to rigth shoulder for 2 weeks For pain 2 gm 05/08 Inactiv e 2023 31428 32523 1 Twice daily Topica l False Chlorthalid one 25 mg tablet [generic] 12.5mg By Mouth Once daily For HTN 12.5mg 05/06 Inactiv e 2023 48616 39529 0 Once daily By Mouth False Chlorthalid one 25 mg tablet [generic] 12.5mg By Mouth Once daily For HTN 12.5mg 05/07 Inactiv e 2023 46186 84484 0 Once daily By Mouth False Chlorthalid one 25 mg tablet [generic] 05/07 Inactiv e 2023 12536 40056 0 Chlorthalid one 25 mg tablet [generic] 12.5mg By Mouth Once daily For HTN 12.5mg 06/26 Inactiv e 2023 80260 36057 0 Once daily By Mouth False Norvasc 5 mg tablet 5mg By Mouth Once daily, hold medication if systolic is less than 90 For HYPERTENSIVE HEART DISEASE WITHOUT HEART FAILURE 5mg 06/03 Inactiv e 2023 68040 26240 1 Once daily By Mouth I11.9 False Norvasc 5 mg tablet 5mg By Mouth Once daily, hold medication if systolic is less than 90 For HYPERTENSIVE HEART DISEASE WITHOUT HEART FAILURE 5mg 06/03 Inactiv e 2023 33022 09213 1 Once daily By Mouth I11.9 False Norvasc 5 mg tablet 5mg By Mouth Once daily, hold medication if systolic is less than 90 For HYPERTENSIVE HEART DISEASE WITHOUT HEART FAILURE 5mg 06/26 Inactiv e 2023 69079 95704 1 Once daily By Mouth I11.9 False [...] Bladder spasms 10 mg 2023 Active 2023 09359 00962 1 Once daily By Mouth False Problems [...] adjustment of urinary device 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 Active [...] weight Temperature SpO2 Blood Sugar Pulse Respirations 59441 216 58472 1 254.10 NI 43013 216 69274 2 79.00 mm[Hg] - Sitting 157.00 mm[Hg] - Sitting 73 NI 254.10 NI 36.30 Tympanic 95.00 % 72.00/ min 16.00/min 00514 216 80395 4 98.80 Tympanic 70201 216 06813 2 78.00 mm[Hg] - Sitting 164.00 mm[Hg] - Sitting 68721 217 03302 3 98.20 Tympanic 07013 217 56594 5 73.00 mm[Hg] - Sitting 159.00 mm[Hg] - Sitting 07681 217 66647 9 98.40 Forehead Scan 16931 218 11369 3 97.90 Tympanic 00537 218 83838 5 77.00 mm[Hg] - Sitting 137.00 mm[Hg] - Sitting 58676 219 38247 0 97.70 Tympanic 66071 219 60939 6 97.60 Tympanic 95542 219 60132 4 76.00 mm[Hg] - Sitting 139.00 mm[Hg] - Sitting 83594 219 87829 4 97.80 Forehead Scan 20918 220 63390 9 97.90 Tympanic 57180 220 23293 9 76.00 mm[Hg] - Sitting 138.00 mm[Hg] - Sitting 14916 220 36976 6 98.10 Tympanic 77509 221 62745 5 67.00 mm[Hg] - Sitting 142.00 mm[Hg] - Sitting 57066 221 22653 8 98.20 Tympanic 94373 221 78240 0 98.30 Tympanic 62412 222 23057 7 98.20 Tympanic 57926 222 02137 8 97.90 Tympanic 37744 223 11887 3 98.20 Tympanic 04487 223 26189 3 98.00 Tympanic 12051 224 12195 0 59.00 mm[Hg] - Sitting 111.00 mm[Hg] - Sitting 98.40 Forehead Scan 95.00 % 56.00/ min 18.00/min 47770 224 17868 9 98.20 Forehead Scan 74758 224 13529 3 97.90 Tympanic 43677 225 16860 4 98.20 Tympanic 92004 225 07796 8 97.50 Forehead Scan 98312 228 34738 0 55.00 mm[Hg] - Sitting 118.00 mm[Hg] - Sitting 98.40 Tympanic 69.00/ min 79182 229 84858 8 78.00 mm[Hg] - Sitting 152.00 mm[Hg] - Sitting 46644 230 82387 0 62.00 mm[Hg] - Sitting 122.00 mm[Hg] - Sitting 53443 231 44500 7 72.00 mm[Hg] - Lying Down 140.00 mm[Hg] - Lying Down 84225 101 73852 3 97.70 Forehead Scan 08054 101 24144 1 254.10 NI 69.00/ min 66537 101 44434 9 72.00 mm[Hg] - Sitting 142.00 mm[Hg] - Sitting 97.70 Tympanic 18.00/min 33588 101 52295 3 72.00 mm[Hg] - Lying Down 142.00 mm[Hg] - Lying Down 35671 102 35041 8 68.00 mm[Hg] - Lying Down 152.00 mm[Hg] - Lying Down 89686 103 89429 5 74.00 mm[Hg] - Sitting 158.00 mm[Hg] - Sitting 28228 104 78337 9 78.00 mm[Hg] - Sitting 144.00 mm[Hg] - Sitting 54707 105 72343 5 68.00 mm[Hg] - Sitting 138.00 mm[Hg] - Sitting 13516 106 97180 1 70.00 mm[Hg] - Sitting 138.00 mm[Hg] - Sitting 41389 107 45099 1 67.00 mm[Hg] - Sitting 142.00 mm[Hg] - Sitting 32827 108 10034 0 74.00 mm[Hg] - Sitting 143.00 mm[Hg] - Sitting 86528 110 92822 6 85.00 mm[Hg] - Sitting 160.00 mm[Hg] - Sitting 97.80 Tympanic 93.00 % 76.00/ min 18.00/min 35367 111 90849 1 83.00 mm[Hg] - Sitting 129.00 mm[Hg] - Sitting 98.60 Tympanic 92.00 % 71.00/ min 18.00/min 75413 111 92602 5 60.00 mm[Hg] - Sitting 114.00 mm[Hg] - Sitting 98.70 Tympanic 92.00 % 76.00/ min 18.00/min 96220 112 81963 4 55.00 mm[Hg] - Sitting 125.00 mm[Hg] - Sitting 98.60 Tympanic 91.00 % 68.00/ min 18.00/min 63572 112 77604 9 75.00 mm[Hg] - Sitting 174.00 mm[Hg] - Sitting 97.70 Tympanic 96.00 % 71.00/ min 18.00/min 73235 113 61176 2 77.00 mm[Hg] - Sitting 139.00 mm[Hg] - Sitting 98.10 Tympanic 97.00 % 81.00/ min 18.00/min Immunizations [...]
--- OUTSIDE RECORDS SUMMARY | 2024-07-26 11:12 | External Medical Summary | Continuity Of Care Document ---
Author Name Unknown Address [address] [place] [address] Organization [facility] () Care Team Providers Care Income Tax Preparer Name Role Phone DO Pritchett Amy Primary Care Provider [phone] Allergies Allergy Reaction Start Date End Date Status AMINOGLYCOSIDES Active CIPRO Active GENTAMICIN Active NSAIDS (NON-STEROIDAL ANTI-INFLAMMATORY DRUG) 0 Active IBUPROFEN Active QUINOLONES Active VALIUM Active Medications Medication Instructions Dosage Start Date End Date Status Order Date Drug Code Frequency Route of Admin Diagnosis Code Substitutions Allowed Spikevax [id number](1 2y up)(PF) 50 mcg/0.5 mL intramuscul ar suspension [COVID [id number](12 up)(andu)(P F)] 0.5mL Intramuscular 1 time Monitory 15 Minutes post injection for adverse effects; record site/temp For COVID 19 PREVENTION 0.5mL 01/02 Inactiv e 2023 59968 42750 4 1 time Intram uscula r False [facility] - Nurse initials indicate verificatio n that [id number] vaccine was administere d by [facility]at jon 1 Intramuscular 1 time ( Indicate vaccine type) For vaccine 1 05/03 Inactiv e 2023 1 time Intram uscula r False Lisinopril 40 mg tablet [generic] TAKE ONE (1) TABLET BY MOUTH IN THE MORNING. For DX- HTN 1 2023 Active 2023 79996 63963 1 Once daily By Mouth False Tizanidine 2 mg tablet [generic] TAKE ONE (1) TABLET BY MOUTH ONCE DAILY For MUSCLE SPASM 1 2023 Active 2023 75595 21812 0 Once daily By Mouth M62.838 False Tamsulosin 0.4 mg capsule [generic] TAKE (1) CAPSULE BY MOUTH AT BEDTIME For SPASMS 1 2023 Active 2023 62683 20177 0 Once daily By Mouth False Aspirin 81 mg tablet Once daily 1 TABLET BY MOUTH IN THE MORNING For DX- CAD DO NOT CRUSH, CHEW OR BREAK 81 mg 06/12 Inactiv e 2023 Once daily By Mouth False Baclofen 20 mg tablet [generic] 20 mg By Mouth 4 times a day For DX- MUSCLE SPASMS 20 mg 12/12 Inactiv e 2023 50230 98103 1 4 times a day By Mouth False Calcium citrate 250 mg tablet Once daily 4 TABLET BY MOUTH For DX- SUPPLEMENT 250 mg calci 12/12 Inactiv e 2023 Once daily By Mouth False Co Q-10 100 mg capsule 100 mg By Mouth Once daily For DX- SUPPLEMENT 100 mg 06/20 Inactiv e 2023 83214 73836 5 Once daily By Mouth False Furosemide 20 mg tablet [generic] 20 mg By Mouth Once daily For DX-CHF 20 mg 12/12 Inactiv e 2023 63775 66700 0 Once daily By Mouth False Gabapentin 300 mg capsule [generic] 300 mg By Mouth 3 times a day For DX- NEUROPATHY 300 mg 12/12 Inactiv e 2023 34332 56200 4 3 times a day By Mouth False Loratadine 10 mg tablet [generic] 10 mg By Mouth Once daily For DX- ALLERGIES 10 mg 2023 Active 2023 11689 67224 1 Once daily By Mouth False Miralax 17 gram/dose oral powder 17 gram/dose By Mouth IN THE MORNING Mix 1 TABLESPOON IN 8 OZ OF FLUID HOLD FOR LOOSE STOOLS For DX- CONSTIPATION 17 gram/do se 12/12 Inactiv e 2023 24933 85952 0 Once daily By Mouth False Paroxetine 30 mg tablet [generic] 30 mg By Mouth Once daily For DX- DEPRESSION 30 mg 2023 00/00 /0000 Active 2023 60827 19495 3 Once daily By Mouth False Potassium citrate ER 15 mEq (1,620 mg) tablet,exte nded release [generic] 15 mEq By Mouth 3 times a day For DX- SUPPLEMENT/DI URETIC USE/ HYPOCITRAUIRA DO NOT CRUSH 15 mEq 12/12 Inactiv e 2023 82680 18925 1 3 times a day By Mouth [...] For DX- DANDRUFF 12/12 Inactiv e 2023 02078 69327 4 3 times a week Topica l False Acetaminoph en 325 mg tablet [generic] TAKE 2 TABS (650MG) BY MOUTH EVERY 4 HOURS NEEDED FOR TEMP >100 NOT TO EXCEED 3GM/24HRS TAKE 2 TABS (650MG) BY MOUTH EVERY 4 HOURS NEEDED FOR TEMP >100 NOT TO EXCEED 3GM/24HRS For DX-FEVER 2 12/12 Inactiv e 2023 48580 83330 0 By Mouth False MILK OF MAGNESIA ADMINISTER 30 ML BY MOUTH ONCE DAILY NEEDED FOR CONSTIPATION X3 DAYS WITH NO BM. For DX- CONSTIPATION 30ML 12/12 Inactiv e 2023 22786 81360 9 By Mouth False Enema Disposable 19 gram-7 gram/118 mL ADMINISTER ONE ENEMA RECTALLY ONCE DAILY NEEDED FOR CONSTIPATION ON DAY 6 OF NO BM For DX- CONSTIPATION 12/12 Inactiv e 2023 24079 20787 1 Rectal False TUMS EXTRA STR 750MG TAKE (1) TABLET BY MOUTH THREE TIMES DAILY NEEDED FOR INDIGESTION For DX- INDIGESTION 1 12/12 Inactiv e 2023 30016 48557 8 By Mouth False Vitamin D3 25 [...] CONSTIPATION 10 mg 12/12 Inactiv e 2023 83578 78963 1 Rectal False Melatonin 3 mg tablet [generic] 3 mg By Mouth As Needed For DX-INSOMMIA 3 mg 12/12 Inactiv e 2023 43842 87159 8 By Mouth False Hydrocortis one 1 % topical cream [generic] 1 % Topical As Needed For DX- PAIN 1 % 12/12 Inactiv e 2023 84032 87591 1 Topica l False HYDROCORTIS ONE/PARMOXI NE [...] 5-10 50 mg 12/20 Inactiv e 2023 34279 54831 0 Every 4 hours as needed By Mouth False Tylenol 325 mg tablet 325 mg By Mouth Every 4 hours as needed For DX- PAIN PRN FOR MILD PAIN, DO NOT EXCEED 3000MG APAP/24 HOURS 325 mg 12/20 Inactiv e 2023 20698 95920 0 Every 4 hours as needed By Mouth False Baclofen 20 mg tablet [generic] 20 mg By Mouth 4 times a day For MUSCLE SPASMS 20 mg 12/20 Inactiv e 2023 05871 88031 1 4 times a day By Mouth False Calcium citrate 250 mg tablet [generic] Once daily TAKE 4 TABLETS (1000MG) BY MOUTH For SUPPLEMENT 1000 MG 06/26 Inactiv e 2023 68678 03551 6 Once daily By Mouth False Dulcolax (bisacodyl) 10 mg rectal suppository 10 mg Rectal Once daily For CONSTIPATION *MAY HOLD FOR LOOSE STOOLS* 10 mg 2023 Active 2023 00288 37852 1 Once daily Rectal False Gabapentin 300 mg capsule [generic] 300 mg By Mouth 3 times a day For NEUROPATHY 300 mg 2023 Active 2023 99713 96069 4 3 times a day By Mouth False Potassium citrate ER 15 mEq (1,620 mg) tablet,exte nded release [generic] 15 mEq By Mouth 3 times a day For SUPPLEMENT/DI URETIC USE/HYPOCITRA URIA 15 mEq 06/11 Inactiv e 2023 01303 92746 1 3 times a day By Mouth False Potassium chloride ER 20 mEq tablet,exte nded release [generic] 20 mEq By Mouth 3 times a day *DO NOT CRUSH, CHEW OR BREAK* For SUPPLEMENT 20 mEq 12/18 Inactiv e 2023 34520 40734 1 3 times a day By Mouth False Tizanidine 4 mg tablet [generic] 4 mg By Mouth Once daily For MUSCLE SPASMS 4 mg 2023 Active 2023 23446 28547 0 Once daily By Mouth False Tylenol 325 mg tablet 2 tabs By Mouth Every 4 hours as needed For Fever >100 DO NOT EXCEED 3000 MG APAP/24 Hours 2 tabs 12/20 Inactiv e 2023 01394 30317 0 Every 4 hours as needed By Mouth False Dulcolax (bisacodyl) 10 mg rectal suppository Daily as needed For Constipation 1 sup 12/20 Inactiv e 2023 49270 15692 1 Daily as needed Rectal False Fleet Enema 19 gram-7 gram/118 mL 1 Rectal Daily as neededFor Constipation 1 12/20 Inactiv e 2023 52562 16269 6 Daily as needed Rectal False Milk of Magnesia 400 mg/5 mL oral suspension [Magnesium hydroxide] PRN 30ml By Mouth Daily as needed for constipation one time daily if no BM, on day 4 of no BM (PRN refer to instructions) For Constipation For Constipatioin 30ml 12/20 Inactiv e 2023 02967 70146 6 1 time By Mouth False Melatonin 3 mg tablet [generic] 3 mg By Mouth Once daily As Needed For INSOMNIA 3 mg 12/20 Inactiv e 2023 12105 64932 8 Once daily By Mouth False Hydrocortis one 1 % topical cream [generic] 1 % Rectal Four times daily as needed For hemorroid pain 1 % 12/20 Inactiv e 2023 96652 65225 1 Four times daily as needed Rectal False X-STGH ANTACID 750MG CHEW TAKE (1) TABLET BY MOUTH THREE TIMES DAILY NEEDED FOR INDIGESTION 12/20 Inactiv e 2023 86641 63522 4 Three times daily as needed Saline Mist 0.65 % nasal spray aerosol 0.65 % Nares Four times daily as needed For DRYNESS 0.65 % 12/20 Inactiv e 2023 22238 22644 8 Four times daily as needed Nares False Vicks Vaporub 4.7 %-1.2 %-2.6 % topical ointment Apply topically to chest Three times daily as needed For CONGESTION 4.7-1.2 -2.6 12/20 Inactiv e 2023 68496 37486 1 Three times daily as needed Topica l False VITAMIN D3 2000U CAP TAKE ONE (1) CAPSULE BY MOUTH DAILY* DO NOT CRUSH, CHEW OR BREAK* For Supplement 1 capsule 12/19 Inactiv e 2023 06457 09529 0 Once daily By Mouth False Potassium chloride ER 20 mEq tablet,exte nded release(par t/cryst) [generic] TAKE (1) TABLET BY MOUTH THREE TIMES DAILY (MORNING, AFTERNOON, EVENING)*DO NOT CRUSH, CHEW, OR BREAK* For SUPPLEMENT 20 MEQ 06/11 Inactiv e 2023 66734 49252 5 3 times a day By Mouth False Aspirin 81 mg tablet,camron yed release [generic] TAKE ONE (1) TABLET BY MOUTH ONCE DAILY*DO NOT CRUSH, CHEW OR BREAK* For CAD 81 MG 12/22 Inactiv e 2023 33095 96790 0 Once daily By Mouth False Furosemide 20 mg tablet [generic] TAKE 1 AND 1/2 TABLETS (30MG) BY MOUTH ONCE DAILY For CHF 30mg 2023 Active 2023 89453 06257 1 Once daily By Mouth False Polyethylen e glycol 3350 17 gram/dose oral powder [generic] MIX 17 GRAMS (1 CAPFUL) IN 60Z OF LIQUID AND DRINK BY MOUTH ONCE DAILY *HOLD FOR LOOSE STOOLS* For constipation 17 g 2023 Active 2023 61796 68632 3 Once daily By Mouth False Vitamin D3 50 mcg (2,000 unit) capsule Once daily TAKE ONE (1) CAPSULE BY MOUTH DAILY* DO NOT CRUSH, CHEW OR BREAK* For Supplement 1 capsule 02/07 Inactiv e 2023 16143 81809 2 Once daily By Mouth False Fleet Enema 19 gram-7 gram/118 mL 1 Rectal Daily as neededFor Constipation 1 2023 0000 Active 2023 72320 35325 6 Daily as needed Rectal False Tums E-X 300 mg (as calcium carbonate 750 mg) chewable tablet 1 tab By Mouth TAKE (1) TABLET BY MOUTH THREE TIMES DAILY NEEDED FOR INDIGESTION 1 tab 202300 /0000 Active 2023 12198 11103 1 Three times daily as needed By Mouth False Tylenol 325 mg tablet 2 tabs By Mouth Every 4 hours as needed For Fever >100 DO NOT EXCEED 3000 MG APAP/24 Hours 2 tabs 202300 /0000 Active 2023 38580 39276 0 Every 4 hours as needed By Mouth False Vicks Vaporub 4.7 %-1.2 %-2.6 % topical ointment Apply topically to chest Three times daily as needed For CONGESTION topical 202300 Active 2023 66405 63995 1 Three times daily as needed Topica l False Tylenol 325 mg tablet 2 tabs By Mouth Every 4 hours as needed For DX- PAIN PRN FOR MILD PAIN, DO NOT EXCEED 3000MG APAP/24 HOURS 2 tabs 202300 Active 2023 50848 39163 0 Every 4 hours as needed By Mouth False Tramadol 50 mg tablet [generic] 1 tab By Mouth Every 4 hours as needed For DX- PAIN 5-10 1 tab 03/10 Inactiv e 2023 87337 86317 0 Every 4 hours as needed By Mouth False Saline Mist 0.65 % nasal spray aerosol 2 sprays Nares Four times daily as needed For DRYNESS 2 sprays 202300 / Active 2023 22803 14166 8 Four times daily as needed Nares False Dulcolax (bisacodyl) 10 mg rectal suppository Daily as needed For Constipation 1 sup 202300 / Active 2023 77235 44306 1 Daily as needed Rectal False Hydrocortis one-pramoxi ne 1 %-1 % rectal cream [generic] 1 mague Rectal Four times daily as needed For hemorroid pain 1 mague 202300 /0000 Active 2023 47989 67356 4 Four times daily as needed Rectal False Melatonin 3 mg tablet [generic] 1 tab By Mouth At bedtime as needed For INSOMNIA 1 tab 12/24 Inactiv e 2023 18429 55480 8 At bedtime as needed By Mouth False Milk of Magnesia 400 mg/5 mL oral suspension 30ml By Mouth Daily as needed Daily as needed for constipation one time daily if no BM, on day 4 of no BM (PRN refer to instructions) For Constipation For Constipatioin 30ml 2023 Active 2023 12623 93458 2 Daily as needed By Mouth False Baclofen 20 mg tablet [generic] 20 mg By Mouth 4 times a day For MUSCLE SPASMS 20 mg 2023 Active 2023 44069 06051 1 4 times a day By Mouth False Melatonin 3 mg tablet [generic] 1 tab By Mouth At bedtime as needed For INSOMNIA 1 tab 2023 Active 2023 94754 85735 8 At bedtime as needed By Mouth False Bactrim DS 800 mg-160 mg tablet 1 tab By Mouth Twice daily For URINARY TRACT INFECTION, SITE NOT SPECIFIED 1 tab 01/06 Inactiv e 2023 93990 32888 1 Twice daily By Mouth N39.0 False Cefdinir 300 mg capsule [generic] 300 mg By Mouth Twice daily For UTI 300 mg 01/07 Inactiv e 2023 53362 65899 0 Twice daily By Mouth False Cefdinir 300 mg capsule [generic] 300 mg By Mouth Twice daily For UTI 300 mg 01/17 Inactiv e 2023 63572 79759 0 Twice daily By Mouth False Zyrtec 10 mg tablet 10 mg By Mouth Once daily For sinus congestion 10 mg 01/22 Inactiv e 2023 67421 07617 0 Once daily By Mouth False Tobramycin 0.3 %-dexametha sone 0.1 % eye drops,suspe nsion [generic] 0.3-0.1 % Left Eye 4 times a day For eye infection 0.3-0.1 % 02/05 Inactiv e 2023 19915 88730 5 4 times a day Left Eye False Fluconazole 150 mg tablet [generic] 150 mg By Mouth 1 time For yeast infection 150 mg 02/15 Inactiv e 2023 16020 74952 2 1 time By Mouth False Tramadol 50 mg tablet [generic] 1 tab By Mouth Every 4 hours as needed For DX- PAIN 5-10 1 tab 2023 00/00 /0000 Active 2023 56860 08479 0 Every 4 hours as needed By Mouth False Tobramycin 0.3 %-dexametha sone 0.1 % eye drops,suspe nsion [generic] 1 drop Left Eye 4 times a day For Inflammation of left eye 1 drop 05/08 Inactiv e 2023 04087 68595 5 4 times a day Left Eye False Voltaren Arthritis Pain 1 % topical gel 2 gm Topical Twice daily to rigth shoulder for 2 weeks For pain 2 gm 05/08 Inactiv e 2023 28294 04327 1 Twice daily Topica l False Chlorthalid one 25 mg tablet [generic] 12.5mg By Mouth Once daily For HTN 12.5mg 05/06 Inactiv e 2023 41847 72853 0 Once daily By Mouth False Chlorthalid one 25 mg tablet [generic] 12.5mg By Mouth Once daily For HTN 12.5mg 05/07 Inactiv e 2023 07302 29802 0 Once daily By Mouth False Chlorthalid one 25 mg tablet [generic] 05/07 Inactiv e 2023 56641 91247 0 Chlorthalid one 25 mg tablet [generic] 12.5mg By Mouth Once daily For HTN 12.5mg 06/26 Inactiv e 2023 61083 37331 0 Once daily By Mouth False Norvasc 5 mg tablet 5mg By Mouth Once daily, hold medication if systolic is less than 90 For HYPERTENSIVE HEART DISEASE WITHOUT HEART FAILURE 5mg 06/03 Inactiv e 2023 17797 33007 1 Once daily By Mouth I11.9 False Norvasc 5 mg tablet 5mg By Mouth Once daily, hold medication if systolic is less than 90 For HYPERTENSIVE HEART DISEASE WITHOUT HEART FAILURE 5mg 06/03 Inactiv e 2023 65780 20295 1 Once daily By Mouth I11.9 False Norvasc 5 mg tablet 5mg By Mouth Once daily, hold medication if systolic is less than 90 For HYPERTENSIVE HEART DISEASE WITHOUT HEART FAILURE 5mg 06/26 Inactiv e 2023 10195 73409 1 Once daily By Mouth I11.9 False [...] 10 mg 2023 00/00 /0000 Active 2023 21972 88077 1 Once daily By Mouth False DISCONTINUE [...] CAD 81 mg 06/14 Inactiv e 2023 51097 43661 9 Once daily By Mouth False Aspirin 81 mg tablet,camron yed release [generic] 06/14 Inactiv e 2023 72873 65927 9 Aspirin 81 mg tablet,camrno yed release [generic] 81 mg By Mouth Once daily Do not crush, chew, or break For CAD 81 mg 06/154 Inactiv e 2023 14820 10149 9 Once daily By Mouth False Cefpodoxime 200 mg tablet [generic] 200mg By Mouth Twice daily For UTI 200mg 07/04 Inactiv e 2023 96650 98613 0 Twice daily By Mouth False Calcium citrate 250 mg tablet [generic] 06/26 Inactiv e 2023 47344 23202 6 Calcium citrate 250 mg tablet [generic] Once daily TAKE 4 TABLETS (1000MG) BY MOUTH For SUPPLEMENT 500 MG 2023 Active 2023 18313 54592 6 Once daily By Mouth False Norvasc 5 mg tablet 7.5 mg By Mouth Once daily Hold medication if SBP <90 For HYPERTENSIVE HEART DISEASE WITHOUT HEART FAILURE 7.5 mg 06/30 Inactiv e 2023 04155 59016 1 Once daily By Mouth I11.9 False Norvasc 5 mg tablet 7.5 mg By Mouth Once daily Hold medication if SBP <90 For HYPERTENSIVE HEART DISEASE WITHOUT HEART FAILURE 7.5 mg 07/06 Inactiv e 2023 82537 88604 1 Once daily By Mouth I11.9 False Simethicone 125 mg capsule [generic] 2 capule By Mouth Twice daily as needed For bloating/gas pain 2 capule 2023 Active 2023 44899 59174 0 Twice daily as needed By Mouth False Cepacol Sore Throat (benzocaine -menthol) 15 mg-2.6 mg lozenges 2 lozenges By Mouth Every 6 hours as needed For sore throat 2 lozenge s 2023 Active 2023 54023 80462 6 Every 6 hours as needed By Mouth False Cefepime 1 gram solution for injection [generic] 1g Intramuscular Every 12 hours 1g intramuscular ly ever 12 hours For UTI 1g 07/06 Inactiv e 2023 51187 08174 4 Every 12 hours Intram uscula r False Cefepime 1 gram solution for injection [generic] 07/06 Inactiv e 2023 45971 94179 4 Cefepime 1 gram solution for injection [generic] 1g Intramuscular Every 12 hours 1g intramuscular ly ever 12 hours For UTI Reconstitute with 2.4 ML of NSS. 1g 07/08 Inactiv e 2023 25301 71126 4 Every 12 hours Intram uscula r False Norvasc 5 mg tablet 07/06 Inactiv e 2023 57265 76720 1 I11.9 Norvasc 5 mg tablet 7.5 mg By Mouth Once daily Hold medication if SBP <90 For HYPERTENSIVE HEART DISEASE WITHOUT HEART FAILURE 7.5 mg 07/18 Inactiv e 2023 07607 67206 1 Once daily By Mouth I11.9 False Cefepime 1 gram solution for injection [generic] 07/08 Inactiv e 2023 64575 83936 4 Cefepime 1 gram solution for injection [generic] 1g Intramuscular Every 12 hours 1g intramuscular ly ever 12 hours For UTI Reconstitute with 2.4 ML of NSS. 1g 07/08 Inactiv e 2023 25139 14853 4 Every 12 hours Intram uscula r False Cefepime 1 gram solution for injection [generic] 07/08 Inactiv e 2023 38183 62339 4 Cefepime 1 gram solution for injection [generic] 1g Intramuscular Every 12 hours 1g intramuscular ly ever 12 hours For UTI Reconstitute with 2.4 ML of NSS. 1g 07/11 Inactiv e 2023 31210 15277 4 Every 12 hours Intram uscula r False Fleet Enema 19 gram-7 gram/118 mL 1 Rectal 1 time For constipation 1 07/16 Inactiv e 2024 19177 74135 6 1 time Rectal False Fleet Enema 19 gram-7 gram/118 mL 1 Rectal 1 time For constipation 1 07/17 Inactiv e 2024 29668 27472 6 1 time Rectal False Norvasc 5 mg tablet 7.5 mg By Mouth Once daily For HYPERTENSIVE HEART DISEASE WITHOUT HEART FAILURE 7.5 mg 2024 00/00 /0000 Active 2024 71826 03013 1 Once daily By Mouth I11.9 False Potassium chloride ER 20 mEq tablet,exte nded release(par t/cryst) [generic] 40 mEq By Mouth 1 time For low potassium prior to surgery 40 mEq 07/18 Inactiv e 2024 66863 09723 1 1 time By Mouth False Potassium chloride ER 20 mEq tablet,exte nded release(par t/cryst) [generic] 40 mEq By Mouth 1 time For low potassium prior to surgery 40 mEq 07/18 Inactiv e 2024 38981 67453 1 1 time By Mouth False Potassium chloride ER 20 mEq tablet,exte nded release(par t/cryst) [generic] 40 mEq By Mouth 1 time For low potassium 40 mEq 07/18 Inactiv e 2024 03007 13862 1 1 time By Mouth False Potassium chloride ER 20 mEq tablet,exte nded release(par t/cryst) [generic] 40 mEq By Mouth 1 time For low potassium 40 mEq 07/18 Inactiv e 2024 14886 61076 1 1 time By Mouth False Potassium chloride ER 20 mEq tablet,exte nded release [generic] 2 By Mouth 1 time For low potassium 2 07/19 Inactiv e 2024 19664 25507 1 1 time By Mouth False Potassium chloride ER 20 mEq tablet,exte nded release [generic] 2 capsules capsules By Mouth 1 time Please send capsule (2 capsules) For low potassium 2 capsule s 07/20 Inactiv e 2024 88517 25934 1 1 time By Mouth False Potassium chloride ER 20 mEq tablet,exte nded release(par t/cryst) [generic] TAKE (2) TABLETS (40MEQ) BY MOUTH X1 DOSE 07/20 Inactiv e 2024 45999 24955 5 Cefepime 1 gram solution for injection [generic] 1 gram Intramuscular Every 12 hours For Urinary Tract Infection 1 gram 07/21 Inactiv e 2024 51378 37106 4 Every 12 hours Intram uscula r False Cefepime 1 gram solution for injection [generic] 07/21 Inactiv e 2024 37618 02439 4 Cefepime 1 gram solution for injection [generic] 1 gram Intramuscular Every 12 hours For Urinary Tract Infection 1 gram 07/22 Inactiv e 2024 80256 61747 4 Every 12 hours Intram uscula r False Cefepime 1 gram solution for injection [generic] 1 gram Intramuscular Every 12 hours For Urinary Tract Infection 1 gram 08/06 Active 2024 67465 81530 4 Every 12 hours Intram uscula r False Nystatin 100,000 unit/gram topical cream [generic] 100,000 unit Topical As Needed For DX- EXCORIATION 100,000 unit 12/12 Inactiv e 2023 04058 44111 5 Topica l False Vicks Vaporub 4.7 %-1.2 %-2.6 % topical ointment 4.7-1.2-2.6 Topical 3 times a day As Needed For DX- CONGESTION 4.7-1.2 -2.6 12/12 Inactiv e 2023 83021 69091 1 3 times a day Topica l False Ketoconazol e 2 % shampoo [generic] APPLY SHAMPOO TOPICALLY TO SCALP DURING HAIR WASHINGDX: ELVIA DERM OF SCALP For DX- ELVIA DERM OF SCALP 12/12 Inactiv e 2023 37297 30257 4 Topica l False THERA SILICONE SKIN GUARD Topical Twice daily 1 APPLICATION TOPICALLY IN THE MORNING AND AT BEDTIME TO SCROTUM For DX- PREVENTION 2023 00/00 /0000 Active 2023 Twice daily Topica l False Selenium sulfide 2.5 % lotion [generic] 2.5 % Topical EVERY MONDAY, MONDAY AND MONDAY AFTER SHOWER For DANDRUFF 2.5 % 2023 Active 2023 99063 88403 4 3 times a week Topica l False Nystatin (bulk) 100 million unit powder [generic] 100 million Topical Twice daily as needed For EXOCORATION 100 million 12/20 Inactiv e 2023 81974 35291 1 Twice daily as needed Topica l False Ketoconazol e 2 % shampoo [generic] Once daily APPLY SHAMPOO TOPICALLY TO SCALP DURING HAIR WASHING ON SHOWER DAYS- , , SAT For ELVIA DERM OF SCAP 2 % 2023 Active 2023 95445 87966 4 Once daily Topica l False Nystatin 100,000 unit/gram topical cream [generic] 1 mague Topical Twice daily as needed For EXOCORATION 1 mague 06/05 Inactiv e 2023 90350 51660 5 Twice daily as needed Topica l False Nystatin 100,000 unit/gram topical powder [generic] 100,000 unit Topical Twice daily to scrotum with AM and PM care For Scrotal excoriation 100,000 unit 06/05 Inactiv e 2023 82301 04422 5 Twice daily Topica l False Problems [...] weight Temperature SpO2 Blood Sugar Pulse Respirations 74889 216 64159 1 254.10 NI 09920 216 61038 2 79.00 mm[Hg] - Sitting 157.00 mm[Hg] - Sitting 73 NI 254.10 NI 36.30 Tympanic 95.00 % 72.00/ min 16.00/min 98556 216 01797 4 98.80 Tympanic 29254 216 64686 2 78.00 mm[Hg] - Sitting 164.00 mm[Hg] - Sitting 47457 217 62805 3 98.20 Tympanic 64183 217 74486 5 73.00 mm[Hg] - Sitting 159.00 mm[Hg] - Sitting 17586 217 89666 9 98.40 Forehead Scan 36693 218 64398 3 97.90 Tympanic 02510 218 71909 5 77.00 mm[Hg] - Sitting 137.00 mm[Hg] - Sitting 55482 219 83422 0 97.70 Tympanic 34184 219 45283 6 97.60 Tympanic 40486 219 58821 4 76.00 mm[Hg] - Sitting 139.00 mm[Hg] - Sitting 70070 219 00031 4 97.80 Forehead Scan 15405 220 68423 9 97.90 Tympanic 34094 220 13162 9 76.00 mm[Hg] - Sitting 138.00 mm[Hg] - Sitting 48056 220 00428 6 98.10 Tympanic 44960 221 06719 5 67.00 mm[Hg] - Sitting 142.00 mm[Hg] - Sitting 57326 221 83417 8 98.20 Tympanic 36338 221 03405 0 98.30 Tympanic 75921 222 42308 7 98.20 Tympanic 69493 222 37214 8 97.90 Tympanic 24447 223 51674 3 98.20 Tympanic 27767 223 71824 3 98.00 Tympanic 74268 224 87576 0 59.00 mm[Hg] - Sitting 111.00 mm[Hg] - Sitting 98.40 Forehead Scan 95.00 % 56.00/ min 18.00/min 57786 224 24167 9 98.20 Forehead Scan 55176 224 93798 3 97.90 Tympanic 21985 225 49035 4 98.20 Tympanic 02822 225 52033 8 97.50 Forehead Scan 65255 228 25411 0 55.00 mm[Hg] - Sitting 118.00 mm[Hg] - Sitting 98.40 Tympanic 69.00/ min 66866 229 70931 8 78.00 mm[Hg] - Sitting 152.00 mm[Hg] - Sitting 79107 230 03614 0 62.00 mm[Hg] - Sitting 122.00 mm[Hg] - Sitting 25870 231 79489 7 72.00 mm[Hg] - Lying Down 140.00 mm[Hg] - Lying Down 00814 101 05396 3 97.70 Forehead Scan 86515 101 97705 1 254.10 NI 69.00/ min 37994 101 27829 9 72.00 mm[Hg] - Sitting 142.00 mm[Hg] - Sitting 97.70 Tympanic 18.00/min 69657 101 30631 3 72.00 mm[Hg] - Lying Down 142.00 mm[Hg] - Lying Down 77257 102 34470 8 68.00 mm[Hg] - Lying Down 152.00 mm[Hg] - Lying Down 20833 103 47988 5 74.00 mm[Hg] - Sitting 158.00 mm[Hg] - Sitting 28764 104 28295 9 78.00 mm[Hg] - Sitting 144.00 mm[Hg] - Sitting 34180 105 96545 5 68.00 mm[Hg] - Sitting 138.00 mm[Hg] - Sitting 86625 106 12902 1 70.00 mm[Hg] - Sitting 138.00 mm[Hg] - Sitting 63698 107 72451 1 67.00 mm[Hg] - Sitting 142.00 mm[Hg] - Sitting 11432 108 12933 0 74.00 mm[Hg] - Sitting 143.00 mm[Hg] - Sitting 67819 110 12357 6 85.00 mm[Hg] - Sitting 160.00 mm[Hg] - Sitting 97.80 Tympanic 93.00 % 76.00/ min 18.00/min 52441 111 52932 1 83.00 mm[Hg] - Sitting 129.00 mm[Hg] - Sitting 98.60 Tympanic 92.00 % 71.00/ min 18.00/min 04088 111 93368 5 60.00 mm[Hg] - Sitting 114.00 mm[Hg] - Sitting 98.70 Tympanic 92.00 % 76.00/ min 18.00/min 33057 112 40535 4 55.00 mm[Hg] - Sitting 125.00 mm[Hg] - Sitting 98.60 Tympanic 91.00 % 68.00/ min 18.00/min 98228 112 67486 9 75.00 mm[Hg] - Sitting 174.00 mm[Hg] - Sitting 97.70 Tympanic 96.00 % 71.00/ min 18.00/min [id number] 113 27982 2 77.00 mm[Hg] - Sitting 139.00 mm[Hg] - Sitting 98.10 Tympanic 97.00 % 81.00/ min 18.00/min 50156 113 72207 4 78.00 mm[Hg] - Sitting 153.00 mm[Hg] - Sitting 98.40 Tympanic 93.00 % 69.00/ min 18.00/min 15814 114 34370 5 76.00 mm[Hg] - Sitting 137.00 mm[Hg] [...]
--- OUTSIDE RECORDS SUMMARY | 2024-07-26 11:12 | External Medical Summary | Continuity Of Care Document ---
Author Name Unknown Address [address] [address] Organization [facility] () Care Team Providers Care Email Campaign Specialist Name Role Phone DO Pritchett Amy Primary Care Provider [phone] Allergies Allergy Reaction Start Date End Date Status AMINOGLYCOSIDES Active CIPRO Active GENTAMICIN Active NSAIDS (NON-STEROIDAL ANTI-INFLAMMATORY DRUG) 0 Active IBUPROFEN Active QUINOLONES Active VALIUM Active Medications Medication Instructions Dosage Start Date End Date Status Order Date Drug Code Frequency Route of Admin Diagnosis Code Substitutions Allowed Spikevax 2784-1218(1 2y up)(PF) 50 mcg/0.5 mL intramuscul ar suspension [COVID [id number](12 up)(andu)(P F)] 0.5mL Intramuscular 1 time Monitory 15 Minutes post injection for adverse effects; record site/temp For COVID 19 PREVENTION 0.5mL 01/02 Inactiv e 2023 20731 35676 4 1 time Intram uscula r False [facility] - Nurse initials indicate verificatio n that [id number] vaccine was administere d by [facility] 1 Intramuscular 1 time ( Indicate vaccine type) For vaccine 1 05/03 Inactiv e 2023 1 time Intram uscula r False Lisinopril 40 mg tablet [generic] TAKE ONE (1) TABLET BY MOUTH IN THE MORNING. For DX- HTN 1 2023 Active 2023 24186 33836 1 Once daily By Mouth False Tizanidine 2 mg tablet [generic] TAKE ONE (1) TABLET BY MOUTH ONCE DAILY For MUSCLE SPASM 1 2023 Active 2023 83481 95322 0 Once daily By Mouth M62.838 False Tamsulosin 0.4 mg capsule [generic] TAKE (1) CAPSULE BY MOUTH AT BEDTIME For SPASMS 1 2023 Active 2023 70855 30087 0 Once daily By Mouth False Aspirin 81 mg tablet Once daily 1 TABLET BY MOUTH IN THE MORNING For DX- CAD DO NOT CRUSH, CHEW OR BREAK 81 mg 06/12 Inactiv e 2023 Once daily By Mouth False Baclofen 20 mg tablet [generic] 20 mg By Mouth 4 times a day For DX- MUSCLE SPASMS 20 mg 12/12 Inactiv e 2023 54815 13530 1 4 times a day By Mouth False Calcium citrate 250 mg tablet Once daily 4 TABLET BY MOUTH For DX- SUPPLEMENT 250 mg calci 12/12 Inactiv e 2023 Once daily By Mouth False Co Q-10 100 mg capsule 100 mg By Mouth Once daily For DX- SUPPLEMENT 100 mg 06/20 Inactiv e 2023 56159 76903 5 Once daily By Mouth False Furosemide 20 mg tablet [generic] 20 mg By Mouth Once daily For DX-CHF 20 mg 12/12 Inactiv e 2023 24058 33058 0 Once daily By Mouth False Gabapentin 300 mg capsule [generic] 300 mg By Mouth 3 times a day For DX- NEUROPATHY 300 mg 12/12 Inactiv e 2023 04886 49538 4 3 times a day By Mouth False Loratadine 10 mg tablet [generic] 10 mg By Mouth Once daily For DX- ALLERGIES 10 mg 2023 Active 2023 36252 45477 1 Once daily By Mouth False Miralax 17 gram/dose oral powder 17 gram/dose By Mouth IN THE MORNING Mix 1 TABLESPOON IN 8 OZ OF FLUID HOLD FOR LOOSE STOOLS For DX- CONSTIPATION 17 gram/do se 12/12 Inactiv e 2023 98621 59787 0 Once daily By Mouth False Paroxetine 30 mg tablet [generic] 30 mg By Mouth Once daily For DX- DEPRESSION 30 mg 2023 00/00 /0000 Active 2023 65389 03275 3 Once daily By Mouth False Potassium citrate ER 15 mEq (1,620 mg) tablet,exte nded release [generic] 15 mEq By Mouth 3 times a day For DX- SUPPLEMENT/DI URETIC USE/ HYPOCITRAUIRA DO NOT CRUSH 15 mEq 12/12 Inactiv e 2023 82442 36052 1 3 times a day By Mouth [...] For DX- DANDRUFF 12/12 Inactiv e 2023 32998 19549 4 3 times a week Topica l False Acetaminoph en 325 mg tablet [generic] TAKE 2 TABS (650MG) BY MOUTH EVERY 4 HOURS NEEDED FOR TEMP >100 NOT TO EXCEED 3GM/24HRS TAKE 2 TABS (650MG) BY MOUTH EVERY 4 HOURS NEEDED FOR TEMP >100 NOT TO EXCEED 3GM/24HRS For DX-FEVER 2 12/12 Inactiv e 2023 25459 10989 0 By Mouth False MILK OF MAGNESIA ADMINISTER 30 ML BY MOUTH ONCE DAILY NEEDED FOR CONSTIPATION X3 DAYS WITH NO BM. For DX- CONSTIPATION 30ML 12/12 Inactiv e 2023 00655 32531 9 By Mouth False Enema Disposable 19 gram-7 gram/118 mL ADMINISTER ONE ENEMA RECTALLY ONCE DAILY NEEDED FOR CONSTIPATION ON DAY 6 OF NO BM For DX- CONSTIPATION 12/12 Inactiv e 2023 75624 34612 1 Rectal False TUMS EXTRA STR 750MG TAKE (1) TABLET BY MOUTH THREE TIMES DAILY NEEDED FOR INDIGESTION For DX- INDIGESTION 1 12/12 Inactiv e 2023 48153 57840 8 By Mouth False Vitamin D3 25 [...] CONSTIPATION 10 mg 12/12 Inactiv e 2023 83713 17735 1 Rectal False Melatonin 3 mg tablet [generic] 3 mg By Mouth As Needed For DX-INSOMMIA 3 mg 12/12 Inactiv e 2023 08843 31130 8 By Mouth False Hydrocortis one 1 % topical cream [generic] 1 % Topical As Needed For DX- PAIN 1 % 12/12 Inactiv e 2023 33354 68498 1 Topica l False HYDROCORTIS ONE/PARMOXI NE [...] 5-10 50 mg 12/20 Inactiv e 2023 04975 30941 0 Every 4 hours as needed By Mouth False Tylenol 325 mg tablet 325 mg By Mouth Every 4 hours as needed For DX- PAIN PRN FOR MILD PAIN, DO NOT EXCEED 3000MG APAP/24 HOURS 325 mg 12/20 Inactiv e 2023 50389 71848 0 Every 4 hours as needed By Mouth False Baclofen 20 mg tablet [generic] 20 mg By Mouth 4 times a day For MUSCLE SPASMS 20 mg 12/20 Inactiv e 2023 94620 21430 1 4 times a day By Mouth False Calcium citrate 250 mg tablet [generic] Once daily TAKE 4 TABLETS (1000MG) BY MOUTH For SUPPLEMENT 1000 MG 06/26 Inactiv e 2023 57435 05300 6 Once daily By Mouth False Dulcolax (bisacodyl) 10 mg rectal suppository 10 mg Rectal Once daily For CONSTIPATION *MAY HOLD FOR LOOSE STOOLS* 10 mg 2023 Active 2023 95275 80676 1 Once daily Rectal False Gabapentin 300 mg capsule [generic] 300 mg By Mouth 3 times a day For NEUROPATHY 300 mg 2023 Active 2023 82642 03075 4 3 times a day By Mouth False Potassium citrate ER 15 mEq (1,620 mg) tablet,exte nded release [generic] 15 mEq By Mouth 3 times a day For SUPPLEMENT/DI URETIC USE/HYPOCITRA URIA 15 mEq 06/11 Inactiv e 2023 86901 57078 1 3 times a day By Mouth False Potassium chloride ER 20 mEq tablet,exte nded release [generic] 20 mEq By Mouth 3 times a day *DO NOT CRUSH, CHEW OR BREAK* For SUPPLEMENT 20 mEq 12/18 Inactiv e 2023 73452 62873 1 3 times a day By Mouth False Tizanidine 4 mg tablet [generic] 4 mg By Mouth Once daily For MUSCLE SPASMS 4 mg 2023 Active 2023 78969 84336 0 Once daily By Mouth False Tylenol 325 mg tablet 2 tabs By Mouth Every 4 hours as needed For Fever >100 DO NOT EXCEED 3000 MG APAP/24 Hours 2 tabs 12/20 Inactiv e 2023 69171 85501 0 Every 4 hours as needed By Mouth False Dulcolax (bisacodyl) 10 mg rectal suppository Daily as needed For Constipation 1 sup 12/20 Inactiv e 2023 49213 37383 1 Daily as needed Rectal False Fleet Enema 19 gram-7 gram/118 mL 1 Rectal Daily as neededFor Constipation 1 12/20 Inactiv e 2023 53258 19590 6 Daily as needed Rectal False Milk of Magnesia 400 mg/5 mL oral suspension [Magnesium hydroxide] PRN 30ml By Mouth Daily as needed for constipation one time daily if no BM, on day 4 of no BM (PRN refer to instructions) For Constipation For Constipatioin 30ml 12/20 Inactiv e 2023 57191 14162 6 1 time By Mouth False Melatonin 3 mg tablet [generic] 3 mg By Mouth Once daily As Needed For INSOMNIA 3 mg 12/20 Inactiv e 2023 87107 76166 8 Once daily By Mouth False Hydrocortis one 1 % topical cream [generic] 1 % Rectal Four times daily as needed For hemorroid pain 1 % 12/20 Inactiv e 2023 62896 26541 1 Four times daily as needed Rectal False X-STGH ANTACID 750MG CHEW TAKE (1) TABLET BY MOUTH THREE TIMES DAILY NEEDED FOR INDIGESTION 12/20 Inactiv e 2023 57339 41460 4 Three times daily as needed Saline Mist 0.65 % nasal spray aerosol 0.65 % Nares Four times daily as needed For DRYNESS 0.65 % 12/20 Inactiv e 2023 27024 31183 8 Four times daily as needed Nares False Vicks Vaporub 4.7 %-1.2 %-2.6 % topical ointment Apply topically to chest Three times daily as needed For CONGESTION 4.7-1.2 -2.6 12/20 Inactiv e 2023 85757 01837 1 Three times daily as needed Topica l False VITAMIN D3 2000U CAP TAKE ONE (1) CAPSULE BY MOUTH DAILY* DO NOT CRUSH, CHEW OR BREAK* For Supplement 1 capsule 12/19 Inactiv e 2023 46720 32598 0 Once daily By Mouth False Potassium chloride ER 20 mEq tablet,exte nded release(par t/cryst) [generic] TAKE (1) TABLET BY MOUTH THREE TIMES DAILY (MORNING, AFTERNOON, EVENING)*DO NOT CRUSH, CHEW, OR BREAK* For SUPPLEMENT 20 MEQ 06/11 Inactiv e 2023 28248 48952 5 3 times a day By Mouth False Aspirin 81 mg tablet,camron yed release [generic] TAKE ONE (1) TABLET BY MOUTH ONCE DAILY*DO NOT CRUSH, CHEW OR BREAK* For CAD 81 MG 12/22 Inactiv e 2023 56523 11038 0 Once daily By Mouth False Furosemide 20 mg tablet [generic] TAKE 1 AND 1/2 TABLETS (30MG) BY MOUTH ONCE DAILY For CHF 30mg 2023 Active 2023 67234 03108 1 Once daily By Mouth False Polyethylen e glycol 3350 17 gram/dose oral powder [generic] MIX 17 GRAMS (1 CAPFUL) IN 60Z OF LIQUID AND DRINK BY MOUTH ONCE DAILY *HOLD FOR LOOSE STOOLS* For constipation 17 g 2023 Active 2023 45420 12479 3 Once daily By Mouth False Vitamin D3 50 mcg (2,000 unit) capsule Once daily TAKE ONE (1) CAPSULE BY MOUTH DAILY* DO NOT CRUSH, CHEW OR BREAK* For Supplement 1 capsule 02/07 Inactiv e 2023 06389 97599 2 Once daily By Mouth False Fleet Enema 19 gram-7 gram/118 mL 1 Rectal Daily as neededFor Constipation 1 2023 0000 Active 2023 48768 09248 6 Daily as needed Rectal False Tums E-X 300 mg (as calcium carbonate 750 mg) chewable tablet 1 tab By Mouth TAKE (1) TABLET BY MOUTH THREE TIMES DAILY NEEDED FOR INDIGESTION 1 tab 202300 /0000 Active 2023 09507 14658 1 Three times daily as needed By Mouth False Tylenol 325 mg tablet 2 tabs By Mouth Every 4 hours as needed For Fever >100 DO NOT EXCEED 3000 MG APAP/24 Hours 2 tabs 202300 /0000 Active 2023 39084 45517 0 Every 4 hours as needed By Mouth False Vicks Vaporub 4.7 %-1.2 %-2.6 % topical ointment Apply topically to chest Three times daily as needed For CONGESTION topical 202300 Active 2023 03241 48551 1 Three times daily as needed Topica l False Tylenol 325 mg tablet 2 tabs By Mouth Every 4 hours as needed For DX- PAIN PRN FOR MILD PAIN, DO NOT EXCEED 3000MG APAP/24 HOURS 2 tabs 202300 Active 2023 28101 82067 0 Every 4 hours as needed By Mouth False Tramadol 50 mg tablet [generic] 1 tab By Mouth Every 4 hours as needed For DX- PAIN 5-10 1 tab 03/10 Inactiv e 2023 65610 22305 0 Every 4 hours as needed By Mouth False Saline Mist 0.65 % nasal spray aerosol 2 sprays Nares Four times daily as needed For DRYNESS 2 sprays 202300 / Active 2023 22173 22336 8 Four times daily as needed Nares False Dulcolax (bisacodyl) 10 mg rectal suppository Daily as needed For Constipation 1 sup 202300 / Active 2023 28348 91618 1 Daily as needed Rectal False Hydrocortis one-pramoxi ne 1 %-1 % rectal cream [generic] 1 mague Rectal Four times daily as needed For hemorroid pain 1 mague 202300 /0000 Active 2023 26533 54830 4 Four times daily as needed Rectal False Melatonin 3 mg tablet [generic] 1 tab By Mouth At bedtime as needed For INSOMNIA 1 tab 12/24 Inactiv e 2023 92012 74435 8 At bedtime as needed By Mouth False Milk of Magnesia 400 mg/5 mL oral suspension 30ml By Mouth Daily as needed Daily as needed for constipation one time daily if no BM, on day 4 of no BM (PRN refer to instructions) For Constipation For Constipatioin 30ml 2023 Active 2023 94228 90242 2 Daily as needed By Mouth False Baclofen 20 mg tablet [generic] 20 mg By Mouth 4 times a day For MUSCLE SPASMS 20 mg 2023 Active 2023 58703 65746 1 4 times a day By Mouth False Melatonin 3 mg tablet [generic] 1 tab By Mouth At bedtime as needed For INSOMNIA 1 tab 2023 Active 2023 67441 55965 8 At bedtime as needed By Mouth False Bactrim DS 800 mg-160 mg tablet 1 tab By Mouth Twice daily For URINARY TRACT INFECTION, SITE NOT SPECIFIED 1 tab 01/06 Inactiv e 2023 01069 05629 1 Twice daily By Mouth N39.0 False Cefdinir 300 mg capsule [generic] 300 mg By Mouth Twice daily For UTI 300 mg 01/07 Inactiv e 2023 93425 02053 0 Twice daily By Mouth False Cefdinir 300 mg capsule [generic] 300 mg By Mouth Twice daily For UTI 300 mg 01/17 Inactiv e 2023 18979 77876 0 Twice daily By Mouth False Zyrtec 10 mg tablet 10 mg By Mouth Once daily For sinus congestion 10 mg 01/22 Inactiv e 2023 70735 38153 0 Once daily By Mouth False Tobramycin 0.3 %-dexametha sone 0.1 % eye drops,suspe nsion [generic] 0.3-0.1 % Left Eye 4 times a day For eye infection 0.3-0.1 % 02/05 Inactiv e 2023 21402 59595 5 4 times a day Left Eye False Fluconazole 150 mg tablet [generic] 150 mg By Mouth 1 time For yeast infection 150 mg 02/15 Inactiv e 2023 82439 10796 2 1 time By Mouth False Tramadol 50 mg tablet [generic] 1 tab By Mouth Every 4 hours as needed For DX- PAIN 5-10 1 tab 2023 00/00 /0000 Active 2023 76247 21479 0 Every 4 hours as needed By Mouth False Tobramycin 0.3 %-dexametha sone 0.1 % eye drops,suspe nsion [generic] 1 drop Left Eye 4 times a day For Inflammation of left eye 1 drop 05/08 Inactiv e 2023 93617 09907 5 4 times a day Left Eye False Voltaren Arthritis Pain 1 % topical gel 2 gm Topical Twice daily to rigth shoulder for 2 weeks For pain 2 gm 05/08 Inactiv e 2023 99280 30248 1 Twice daily Topica l False Chlorthalid one 25 mg tablet [generic] 12.5mg By Mouth Once daily For HTN 12.5mg 05/06 Inactiv e 2023 75503 53882 0 Once daily By Mouth False Chlorthalid one 25 mg tablet [generic] 12.5mg By Mouth Once daily For HTN 12.5mg 05/07 Inactiv e 2023 96245 06883 0 Once daily By Mouth False Chlorthalid one 25 mg tablet [generic] 05/07 Inactiv e 2023 94870 70696 0 Chlorthalid one 25 mg tablet [generic] 12.5mg By Mouth Once daily For HTN 12.5mg 06/26 Inactiv e 2023 77182 68355 0 Once daily By Mouth False Norvasc 5 mg tablet 5mg By Mouth Once daily, hold medication if systolic is less than 90 For HYPERTENSIVE HEART DISEASE WITHOUT HEART FAILURE 5mg 06/03 Inactiv e 2023 95099 89773 1 Once daily By Mouth I11.9 False Norvasc 5 mg tablet 5mg By Mouth Once daily, hold medication if systolic is less than 90 For HYPERTENSIVE HEART DISEASE WITHOUT HEART FAILURE 5mg 06/03 Inactiv e 2023 43381 83391 1 Once daily By Mouth I11.9 False Norvasc 5 mg tablet 5mg By Mouth Once daily, hold medication if systolic is less than 90 For HYPERTENSIVE HEART DISEASE WITHOUT HEART FAILURE 5mg 06/26 Inactiv e 2023 01949 17174 1 Once daily By Mouth I11.9 False [...] 10 mg 2023 00/00 /0000 Active 2023 13246 42937 1 Once daily By Mouth False DISCONTINUE [...] CAD 81 mg 06/14 Inactiv e 2023 66891 54699 9 Once daily By Mouth False Aspirin 81 mg tablet,camron yed release [generic] 06/14 Inactiv e 2023 03695 76621 9 Aspirin 81 mg tablet,camron yed release [generic] 81 mg By Mouth Once daily Do not crush, chew, or break For CAD 81 mg 06/154 Inactiv e 2023 82223 45375 9 Once daily By Mouth False Cefpodoxime 200 mg tablet [generic] 200mg By Mouth Twice daily For UTI 200mg 07/04 Inactiv e 2023 35137 61089 0 Twice daily By Mouth False Calcium citrate 250 mg tablet [generic] 06/26 Inactiv e 2023 38271 99147 6 Calcium citrate 250 mg tablet [generic] Once daily TAKE 4 TABLETS (1000MG) BY MOUTH For SUPPLEMENT 500 MG 2023 Active 2023 21217 46557 6 Once daily By Mouth False Norvasc 5 mg tablet 7.5 mg By Mouth Once daily Hold medication if SBP <90 For HYPERTENSIVE HEART DISEASE WITHOUT HEART FAILURE 7.5 mg 06/30 Inactiv e 2023 23624 16993 1 Once daily By Mouth I11.9 False Norvasc 5 mg tablet 7.5 mg By Mouth Once daily Hold medication if SBP <90 For HYPERTENSIVE HEART DISEASE WITHOUT HEART FAILURE 7.5 mg 07/06 Inactiv e 2023 93570 62652 1 Once daily By Mouth I11.9 False Simethicone 125 mg capsule [generic] 2 capule By Mouth Twice daily as needed For bloating/gas pain 2 capule 2023 Active 2023 00748 36426 0 Twice daily as needed By Mouth False Cepacol Sore Throat (benzocaine -menthol) 15 mg-2.6 mg lozenges 2 lozenges By Mouth Every 6 hours as needed For sore throat 2 lozenge s 2023 Active 2023 21366 59901 6 Every 6 hours as needed By Mouth False Cefepime 1 gram solution for injection [generic] 1g Intramuscular Every 12 hours 1g intramuscular ly ever 12 hours For UTI 1g 07/06 Inactiv e 2023 87893 46791 4 Every 12 hours Intram uscula r False Cefepime 1 gram solution for injection [generic] 07/06 Inactiv e 2023 05293 09316 4 Cefepime 1 gram solution for injection [generic] 1g Intramuscular Every 12 hours 1g intramuscular ly ever 12 hours For UTI Reconstitute with 2.4 ML of NSS. 1g 07/08 Inactiv e 2023 28618 62231 4 Every 12 hours Intram uscula r False Norvasc 5 mg tablet 07/06 Inactiv e 2023 14925 77783 1 I11.9 Norvasc 5 mg tablet 7.5 mg By Mouth Once daily Hold medication if SBP <90 For HYPERTENSIVE HEART DISEASE WITHOUT HEART FAILURE 7.5 mg 07/18 Inactiv e 2023 75435 84361 1 Once daily By Mouth I11.9 False Cefepime 1 gram solution for injection [generic] 07/08 Inactiv e 2023 99240 92470 4 Cefepime 1 gram solution for injection [generic] 1g Intramuscular Every 12 hours 1g intramuscular ly ever 12 hours For UTI Reconstitute with 2.4 ML of NSS. 1g 07/08 Inactiv e 2023 55559 58019 4 Every 12 hours Intram uscula r False Cefepime 1 gram solution for injection [generic] 07/08 Inactiv e 2023 02000 73301 4 Cefepime 1 gram solution for injection [generic] 1g Intramuscular Every 12 hours 1g intramuscular ly ever 12 hours For UTI Reconstitute with 2.4 ML of NSS. 1g 07/11 Inactiv e 2023 35887 95166 4 Every 12 hours Intram uscula r False Fleet Enema 19 gram-7 gram/118 mL 1 Rectal 1 time For constipation 1 07/16 Inactiv e 2024 64197 16333 6 1 time Rectal False Fleet Enema 19 gram-7 gram/118 mL 1 Rectal 1 time For constipation 1 07/17 Inactiv e 2024 96988 36685 6 1 time Rectal False Norvasc 5 mg tablet 7.5 mg By Mouth Once daily For HYPERTENSIVE HEART DISEASE WITHOUT HEART FAILURE 7.5 mg 2024 00/00 /0000 Active 2024 61359 23688 1 Once daily By Mouth I11.9 False Potassium chloride ER 20 mEq tablet,exte nded release(par t/cryst) [generic] 40 mEq By Mouth 1 time For low potassium prior to surgery 40 mEq 07/18 Inactiv e 2024 33645 94166 1 1 time By Mouth False Potassium chloride ER 20 mEq tablet,exte nded release(par t/cryst) [generic] 40 mEq By Mouth 1 time For low potassium prior to surgery 40 mEq 07/18 Inactiv e 2024 86678 93729 1 1 time By Mouth False Potassium chloride ER 20 mEq tablet,exte nded release(par t/cryst) [generic] 40 mEq By Mouth 1 time For low potassium 40 mEq 07/18 Inactiv e 2024 48690 23044 1 1 time By Mouth False Potassium chloride ER 20 mEq tablet,exte nded release(par t/cryst) [generic] 40 mEq By Mouth 1 time For low potassium 40 mEq 07/18 Inactiv e 2024 83748 51636 1 1 time By Mouth False Potassium chloride ER 20 mEq tablet,exte nded release [generic] 2 By Mouth 1 time For low potassium 2 07/19 Inactiv e 2024 05451 92472 1 1 time By Mouth False Potassium chloride ER 20 mEq tablet,exte nded release [generic] 2 capsules capsules By Mouth 1 time Please send capsule (2 capsules) For low potassium 2 capsule s 07/20 Inactiv e 2024 55917 04484 1 1 time By Mouth False Potassium chloride ER 20 mEq tablet,exte nded release(par t/cryst) [generic] TAKE (2) TABLETS (40MEQ) BY MOUTH X1 DOSE 07/20 Inactiv e 2024 17588 24407 5 Cefepime 1 gram solution for injection [generic] 1 gram Intramuscular Every 12 hours For Urinary Tract Infection 1 gram 07/21 Inactiv e 2024 31219 98946 4 Every 12 hours Intram uscula r False Cefepime 1 gram solution for injection [generic] 07/21 Inactiv e 2024 37675 47687 4 Cefepime 1 gram solution for injection [generic] 1 gram Intramuscular Every 12 hours For Urinary Tract Infection 1 gram 07/22 Inactiv e 2024 77721 54025 4 Every 12 hours Intram uscula r False Cefepime 1 gram solution for injection [generic] 1 gram Intramuscular Every 12 hours For Urinary Tract Infection 1 gram 08/06 Active 2024 96573 71467 4 Every 12 hours Intram uscula r False Nystatin 100,000 unit/gram topical cream [generic] 100,000 unit Topical As Needed For DX- EXCORIATION 100,000 unit 12/12 Inactiv e 2023 24724 87817 5 Topica l False Vicks Vaporub 4.7 %-1.2 %-2.6 % topical ointment 4.7-1.2-2.6 Topical 3 times a day As Needed For DX- CONGESTION 4.7-1.2 -2.6 12/12 Inactiv e 2023 95754 27326 1 3 times a day Topica l False Ketoconazol e 2 % shampoo [generic] APPLY SHAMPOO TOPICALLY TO SCALP DURING HAIR WASHINGDX: ELVIA DERM OF SCALP For DX- ELVIA DERM OF SCALP 12/12 Inactiv e 2023 83574 76956 4 Topica l False THERA SILICONE SKIN GUARD Topical Twice daily 1 APPLICATION TOPICALLY IN THE MORNING AND AT BEDTIME TO SCROTUM For DX- PREVENTION 2023 00/00 /0000 Active 2023 Twice daily Topica l False Selenium sulfide 2.5 % lotion [generic] 2.5 % Topical EVERY MONDAY, MONDAY AND MONDAY AFTER SHOWER For DANDRUFF 2.5 % 2023 Active 2023 29790 17134 4 3 times a week Topica l False Nystatin (bulk) 100 million unit powder [generic] 100 million Topical Twice daily as needed For EXOCORATION 100 million 12/20 Inactiv e 2023 14520 72921 1 Twice daily as needed Topica l False Ketoconazol e 2 % shampoo [generic] Once daily APPLY SHAMPOO TOPICALLY TO SCALP DURING HAIR WASHING ON SHOWER DAYS- , , SAT For ELVIA DERM OF SCAP 2 % 2023 Active 2023 28894 41928 4 Once daily Topica l False Nystatin 100,000 unit/gram topical cream [generic] 1 mague Topical Twice daily as needed For EXOCORATION 1 mague 06/05 Inactiv e 2023 90352 24006 5 Twice daily as needed Topica l False Nystatin 100,000 unit/gram topical powder [generic] 100,000 unit Topical Twice daily to scrotum with AM and PM care For Scrotal excoriation 100,000 unit 06/05 Inactiv e 2023 16885 40476 5 Twice daily Topica l False Problems [...] adjustment of urinary device 07/21/2023 Active Z79.01 group home (current) use of anticoagulants 07/21 Active [...] weight Temperature SpO2 Blood Sugar Pulse Respirations 84144 216 22984 1 254[place]10 [place] [address]114 216 48906 2 79.00 mm[Hg] - Sitting 157.00 mm[Hg] - Sitting 73 NI 254.10 NI 36.30 Tympanic 95.00 % 72.00/ min 16.00/min 01770 216 56344 4 98.80 Tympanic 53583 216 17629 2 78.00 mm[Hg] - Sitting 164.00 mm[Hg] - Sitting 46610 217 30158 3 98.20 Tympanic 07939 217 72153 5 73.00 mm[Hg] - Sitting 159.00 mm[Hg] - Sitting 87490 217 72001 9 98.40 Forehead Scan 65370 218 05602 3 97.90 Tympanic 97944 218 10176 5 77.00 mm[Hg] - Sitting 137.00 mm[Hg] - Sitting 05149 219 42574 0 97.70 Tympanic 85543 219 77838 6 97.60 Tympanic 68472 219 96827 4 76.00 mm[Hg] - Sitting 139.00 mm[Hg] - Sitting 47674 219 51893 4 97.80 Forehead Scan 78083 220 38033 9 97.90 Tympanic 88312 220 59844 9 76.00 mm[Hg] - Sitting 138.00 mm[Hg] - Sitting 68985 220 95695 6 98.10 Tympanic 76051 221 30730 5 67.00 mm[Hg] - Sitting 142.00 mm[Hg] - Sitting 59310 221 58589 8 98.20 Tympanic 96644 221 67948 0 98.30 Tympanic 67286 222 90250 7 98.20 Tympanic 59804 222 93257 8 97.90 Tympanic 49378 223 65969 3 98.20 Tympanic 20161 223 90401 3 98.00 Tympanic 73089 224 71068 0 59.00 mm[Hg] - Sitting 111.00 mm[Hg] - Sitting 98.40 Forehead Scan 95.00 % 56.00/ min 18.00/min 90028 224 51459 9 98.20 Forehead Scan 46876 224 08177 3 97.90 Tympanic 51137 225 32375 4 98.20 Tympanic 89405 225 03857 8 97.50 Forehead Scan 35396 228 43111 0 55.00 mm[Hg] - Sitting 118.00 mm[Hg] - Sitting 98.40 Tympanic 69.00/ min 27433 229 07034 8 78.00 mm[Hg] - Sitting 152.00 mm[Hg] - Sitting 64614 230 99890 0 62.00 mm[Hg] - Sitting 122.00 mm[Hg] - Sitting 30122 231 20763 7 72.00 mm[Hg] - Lying Down 140.00 mm[Hg] - Lying Down 44199 101 95643 3 97.70 Forehead Scan 14580 101 13924 1 254.10 NI 69.00/ min 97845 101 26042 9 72.00 mm[Hg] - Sitting 142.00 mm[Hg] - Sitting 97.70 Tympanic 18.00/min 89450 101 35570 3 72.00 mm[Hg] - Lying Down 142.00 mm[Hg] - Lying Down 01841 102 31941 8 68.00 mm[Hg] - Lying Down 152.00 mm[Hg] - Lying Down 83069 103 42455 5 74.00 mm[Hg] - Sitting 158.00 mm[Hg] - Sitting 11900 104 31685 9 78.00 mm[Hg] - Sitting 144.00 mm[Hg] - Sitting 42725 105 74635 5 68.00 mm[Hg] - Sitting 138.00 mm[Hg] - Sitting 15193 106 14195 1 70.00 mm[Hg] - Sitting 138.00 mm[Hg] - Sitting 74954 107 62816 1 67.00 mm[Hg] - Sitting 142.00 mm[Hg] - Sitting 21513 108 14391 0 74.00 mm[Hg] - Sitting 143.00 mm[Hg] - Sitting 64981 110 47735 6 85.00 mm[Hg] - Sitting 160.00 mm[Hg] - Sitting 97.80 Tympanic 93.00 % 76.00/ min 18.00/min 03866 111 65738 1 83.00 mm[Hg] - Sitting 129.00 mm[Hg] - Sitting 98.60 Tympanic 92.00 % 71.00/ min 18.00/min 64342 111 59506 5 60.00 mm[Hg] - Sitting 114.00 mm[Hg] - Sitting 98.70 Tympanic 92.00 % 76.00/ min 18.00/min 31492 112 93454 4 55.00 mm[Hg] - Sitting 125.00 mm[Hg] - Sitting 98.60 Tympanic 91.00 % 68.00/ min 18.00/min [id number] 9 75.00 mm[Hg] - Sitting 174.00 mm[Hg] - Sitting 97.70 Tympanic 96.00 % 71.00/ min 18.00/min 79928 113 10633 2 77.00 mm[Hg] - Sitting 139.00 mm[Hg] - Sitting 98.10 Tympanic 97.00 % 81.00/ min 18.00/min 75206 113 38214 4 78.00 mm[Hg] - Sitting 153.00 mm[Hg] - Sitting 98.40 Tympanic 93.00 % 69.00/ min 18.00/min Immunizations Vaccine Date Status [...]
--- OUTSIDE RECORDS SUMMARY | 2024-07-26 11:12 | External Medical Summary | Continuity Of Care Document ---
Author Name Unknown Address [address] [place] [address] Organization [facility] () Care Team Providers Care Call Center Professional Name Role Phone DO Pritchett Amy Primary Care Provider [phone] Allergies Allergy Reaction Start Date End Date Status AMINOGLYCOSIDES Active CIPRO Active GENTAMICIN Active NSAIDS (NON-STEROIDAL ANTI-INFLAMMATORY DRUG) 0 Active IBUPROFEN Active QUINOLONES Active VALIUM Active Medications Medication Instructions Dosage Start Date End Date Status Order Date Drug Code Frequency Route of Admin Diagnosis Code Substitutions Allowed Spikevax [id number](1 2y up)(PF) 50 mcg/0.5 mL intramuscul ar suspension [COVID dib59-23(12 up)(andu)(P F)] 0.5mL Intramuscular 1 time Monitory 15 Minutes post injection for adverse effects; record site/temp For COVID 19 PREVENTION 0.5mL 01/02 Inactiv e 2023 15840 89830 4 1 time Intram uscula r False [facility] - Nurse initials indicate verificatio n that [id number] vaccine was administere d by [facility] jon 1 Intramuscular 1 time ( Indicate vaccine type) For vaccine 1 05/03 Inactiv e 2023 1 time Intram uscula r False Lisinopril 40 mg tablet [generic] TAKE ONE (1) TABLET BY MOUTH IN THE MORNING. For DX- HTN 1 2023 Active 2023 62540 29374 1 Once daily By Mouth False Tizanidine 2 mg tablet [generic] TAKE ONE (1) TABLET BY MOUTH ONCE DAILY For MUSCLE SPASM 1 2023 Active 2023 07299 26173 0 Once daily By Mouth M62.838 False Tamsulosin 0.4 mg capsule [generic] TAKE (1) CAPSULE BY MOUTH AT BEDTIME For SPASMS 1 2023 Active 2023 44835 35683 0 Once daily By Mouth False Aspirin 81 mg tablet Once daily 1 TABLET BY MOUTH IN THE MORNING For DX- CAD DO NOT CRUSH, CHEW OR BREAK 81 mg 06/12 Inactiv e 2023 Once daily By Mouth False Baclofen 20 mg tablet [generic] 20 mg By Mouth 4 times a day For DX- MUSCLE SPASMS 20 mg 12/12 Inactiv e 2023 84344 27612 1 4 times a day By Mouth False Calcium citrate 250 mg tablet Once daily 4 TABLET BY MOUTH For DX- SUPPLEMENT 250 mg calci 12/12 Inactiv e 2023 Once daily By Mouth False Co Q-10 100 mg capsule 100 mg By Mouth Once daily For DX- SUPPLEMENT 100 mg 06/20 Inactiv e 2023 79736 15757 5 Once daily By Mouth False Furosemide 20 mg tablet [generic] 20 mg By Mouth Once daily For DX-CHF 20 mg 12/12 Inactiv e 2023 82299 06428 0 Once daily By Mouth False Gabapentin 300 mg capsule [generic] 300 mg By Mouth 3 times a day For DX- NEUROPATHY 300 mg 12/12 Inactiv e 2023 86364 58410 4 3 times a day By Mouth False Loratadine 10 mg tablet [generic] 10 mg By Mouth Once daily For DX- ALLERGIES 10 mg 2023 Active 2023 83758 47531 1 Once daily By Mouth False Miralax 17 gram/dose oral powder 17 gram/dose By Mouth IN THE MORNING Mix 1 TABLESPOON IN 8 OZ OF FLUID HOLD FOR LOOSE STOOLS For DX- CONSTIPATION 17 gram/do se 12/12 Inactiv e 2023 53467 88279 0 Once daily By Mouth False Paroxetine 30 mg tablet [generic] 30 mg By Mouth Once daily For DX- DEPRESSION 30 mg 2023 00/00 /0000 Active 2023 43940 22985 3 Once daily By Mouth False Potassium citrate ER 15 mEq (1,620 mg) tablet,exte nded release [generic] 15 mEq By Mouth 3 times a day For DX- SUPPLEMENT/DI URETIC USE/ HYPOCITRAUIRA DO NOT CRUSH 15 mEq 12/12 Inactiv e 2023 29957 33626 1 3 times a day By Mouth [...] For DX- DANDRUFF 12/12 Inactiv e 2023 19591 39369 4 3 times a week Topica l False Acetaminoph en 325 mg tablet [generic] TAKE 2 TABS (650MG) BY MOUTH EVERY 4 HOURS NEEDED FOR TEMP >100 NOT TO EXCEED 3GM/24HRS TAKE 2 TABS (650MG) BY MOUTH EVERY 4 HOURS NEEDED FOR TEMP >100 NOT TO EXCEED 3GM/24HRS For DX-FEVER 2 12/12 Inactiv e 2023 47258 30261 0 By Mouth False MILK OF MAGNESIA ADMINISTER 30 ML BY MOUTH ONCE DAILY NEEDED FOR CONSTIPATION X3 DAYS WITH NO BM. For DX- CONSTIPATION 30ML 12/12 Inactiv e 2023 16947 53930 9 By Mouth False Enema Disposable 19 gram-7 gram/118 mL ADMINISTER ONE ENEMA RECTALLY ONCE DAILY NEEDED FOR CONSTIPATION ON DAY 6 OF NO BM For DX- CONSTIPATION 12/12 Inactiv e 2023 01195 01472 1 Rectal False TUMS EXTRA STR 750MG TAKE (1) TABLET BY MOUTH THREE TIMES DAILY NEEDED FOR INDIGESTION For DX- INDIGESTION 1 12/12 Inactiv e 2023 86177 15608 8 By Mouth False Vitamin D3 25 [...] CONSTIPATION 10 mg 12/12 Inactiv e 2023 09557 47773 1 Rectal False Melatonin 3 mg tablet [generic] 3 mg By Mouth As Needed For DX-INSOMMIA 3 mg 12/12 Inactiv e 2023 56196 96383 8 By Mouth False Hydrocortis one 1 % topical cream [generic] 1 % Topical As Needed For DX- PAIN 1 % 12/12 Inactiv e 2023 57552 14274 1 Topica l False HYDROCORTIS ONE/PARMOXI NE [...] 5-10 50 mg 12/20 Inactiv e 2023 19700 88123 0 Every 4 hours as needed By Mouth False Tylenol 325 mg tablet 325 mg By Mouth Every 4 hours as needed For DX- PAIN PRN FOR MILD PAIN, DO NOT EXCEED 3000MG APAP/24 HOURS 325 mg 12/20 Inactiv e 2023 89251 30646 0 Every 4 hours as needed By Mouth False Baclofen 20 mg tablet [generic] 20 mg By Mouth 4 times a day For MUSCLE SPASMS 20 mg 12/20 Inactiv e 2023 53262 72723 1 4 times a day By Mouth False Calcium citrate 250 mg tablet [generic] Once daily TAKE 4 TABLETS (1000MG) BY MOUTH For SUPPLEMENT 1000 MG 06/26 Inactiv e 2023 01586 78813 6 Once daily By Mouth False Dulcolax (bisacodyl) 10 mg rectal suppository 10 mg Rectal Once daily For CONSTIPATION *MAY HOLD FOR LOOSE STOOLS* 10 mg 2023 Active 2023 89852 12859 1 Once daily Rectal False Gabapentin 300 mg capsule [generic] 300 mg By Mouth 3 times a day For NEUROPATHY 300 mg 2023 Active 2023 22785 76173 4 3 times a day By Mouth False Potassium citrate ER 15 mEq (1,620 mg) tablet,exte nded release [generic] 15 mEq By Mouth 3 times a day For SUPPLEMENT/DI URETIC USE/HYPOCITRA URIA 15 mEq 06/11 Inactiv e 2023 07604 99709 1 3 times a day By Mouth False Potassium chloride ER 20 mEq tablet,exte nded release [generic] 20 mEq By Mouth 3 times a day *DO NOT CRUSH, CHEW OR BREAK* For SUPPLEMENT 20 mEq 12/18 Inactiv e 2023 96024 44231 1 3 times a day By Mouth False Tizanidine 4 mg tablet [generic] 4 mg By Mouth Once daily For MUSCLE SPASMS 4 mg 2023 Active 2023 79807 92068 0 Once daily By Mouth False Tylenol 325 mg tablet 2 tabs By Mouth Every 4 hours as needed For Fever >100 DO NOT EXCEED 3000 MG APAP/24 Hours 2 tabs 12/20 Inactiv e 2023 06121 51185 0 Every 4 hours as needed By Mouth False Dulcolax (bisacodyl) 10 mg rectal suppository Daily as needed For Constipation 1 sup 12/20 Inactiv e 2023 73114 39598 1 Daily as needed Rectal False Fleet Enema 19 gram-7 gram/118 mL 1 Rectal Daily as neededFor Constipation 1 12/20 Inactiv e 2023 17841 24787 6 Daily as needed Rectal False Milk of Magnesia 400 mg/5 mL oral suspension [Magnesium hydroxide] PRN 30ml By Mouth Daily as needed for constipation one time daily if no BM, on day 4 of no BM (PRN refer to instructions) For Constipation For Constipatioin 30ml 12/20 Inactiv e 2023 04679 45033 6 1 time By Mouth False Melatonin 3 mg tablet [generic] 3 mg By Mouth Once daily As Needed For INSOMNIA 3 mg 12/20 Inactiv e 2023 18853 05623 8 Once daily By Mouth False Hydrocortis one 1 % topical cream [generic] 1 % Rectal Four times daily as needed For hemorroid pain 1 % 12/20 Inactiv e 2023 10397 73443 1 Four times daily as needed Rectal False X-STGH ANTACID 750MG CHEW TAKE (1) TABLET BY MOUTH THREE TIMES DAILY NEEDED FOR INDIGESTION 12/20 Inactiv e 2023 64700 69367 4 Three times daily as needed Saline Mist 0.65 % nasal spray aerosol 0.65 % Nares Four times daily as needed For DRYNESS 0.65 % 12/20 Inactiv e 2023 45942 41804 8 Four times daily as needed Nares False Vicks Vaporub 4.7 %-1.2 %-2.6 % topical ointment Apply topically to chest Three times daily as needed For CONGESTION 4.7-1.2 -2.6 12/20 Inactiv e 2023 44172 29599 1 Three times daily as needed Topica l False VITAMIN D3 2000U CAP TAKE ONE (1) CAPSULE BY MOUTH DAILY* DO NOT CRUSH, CHEW OR BREAK* For Supplement 1 capsule 12/19 Inactiv e 2023 29013 56423 0 Once daily By Mouth False Potassium chloride ER 20 mEq tablet,exte nded release(par t/cryst) [generic] TAKE (1) TABLET BY MOUTH THREE TIMES DAILY (MORNING, AFTERNOON, EVENING)*DO NOT CRUSH, CHEW, OR BREAK* For SUPPLEMENT 20 MEQ 06/11 Inactiv e 2023 09849 69326 5 3 times a day By Mouth False Aspirin 81 mg tablet,camron yed release [generic] TAKE ONE (1) TABLET BY MOUTH ONCE DAILY*DO NOT CRUSH, CHEW OR BREAK* For CAD 81 MG 12/22 Inactiv e 2023 39983 00960 0 Once daily By Mouth False Furosemide 20 mg tablet [generic] TAKE 1 AND 1/2 TABLETS (30MG) BY MOUTH ONCE DAILY For CHF 30mg 2023 Active 2023 10781 02336 1 Once daily By Mouth False Polyethylen e glycol 3350 17 gram/dose oral powder [generic] MIX 17 GRAMS (1 CAPFUL) IN 60Z OF LIQUID AND DRINK BY MOUTH ONCE DAILY *HOLD FOR LOOSE STOOLS* For constipation 17 g 2023 Active 2023 87901 63449 3 Once daily By Mouth False Vitamin D3 50 mcg (2,000 unit) capsule Once daily TAKE ONE (1) CAPSULE BY MOUTH DAILY* DO NOT CRUSH, CHEW OR BREAK* For Supplement 1 capsule 02/07 Inactiv e 2023 75771 23421 2 Once daily By Mouth False Fleet Enema 19 gram-7 gram/118 mL 1 Rectal Daily as neededFor Constipation 1 2023 0000 Active 2023 01279 25239 6 Daily as needed Rectal False Tums E-X 300 mg (as calcium carbonate 750 mg) chewable tablet 1 tab By Mouth TAKE (1) TABLET BY MOUTH THREE TIMES DAILY NEEDED FOR INDIGESTION 1 tab 202300 /0000 Active 2023 41384 43248 1 Three times daily as needed By Mouth False Tylenol 325 mg tablet 2 tabs By Mouth Every 4 hours as needed For Fever >100 DO NOT EXCEED 3000 MG APAP/24 Hours 2 tabs 202300 /0000 Active 2023 35111 85024 0 Every 4 hours as needed By Mouth False Vicks Vaporub 4.7 %-1.2 %-2.6 % topical ointment Apply topically to chest Three times daily as needed For CONGESTION topical 202300 Active 2023 65059 24862 1 Three times daily as needed Topica l False Tylenol 325 mg tablet 2 tabs By Mouth Every 4 hours as needed For DX- PAIN PRN FOR MILD PAIN, DO NOT EXCEED 3000MG APAP/24 HOURS 2 tabs 202300 Active 2023 19128 82282 0 Every 4 hours as needed By Mouth False Tramadol 50 mg tablet [generic] 1 tab By Mouth Every 4 hours as needed For DX- PAIN 5-10 1 tab 03/10 Inactiv e 2023 03590 47338 0 Every 4 hours as needed By Mouth False Saline Mist 0.65 % nasal spray aerosol 2 sprays Nares Four times daily as needed For DRYNESS 2 sprays 202300 / Active 2023 34324 51816 8 Four times daily as needed Nares False Dulcolax (bisacodyl) 10 mg rectal suppository Daily as needed For Constipation 1 sup 202300 / Active 2023 37212 45897 1 Daily as needed Rectal False Hydrocortis one-pramoxi ne 1 %-1 % rectal cream [generic] 1 mague Rectal Four times daily as needed For hemorroid pain 1 mague 202300 /0000 Active 2023 45033 19094 4 Four times daily as needed Rectal False Melatonin 3 mg tablet [generic] 1 tab By Mouth At bedtime as needed For INSOMNIA 1 tab 12/24 Inactiv e 2023 08396 77959 8 At bedtime as needed By Mouth False Milk of Magnesia 400 mg/5 mL oral suspension 30ml By Mouth Daily as needed Daily as needed for constipation one time daily if no BM, on day 4 of no BM (PRN refer to instructions) For Constipation For Constipatioin 30ml 2023 Active 2023 19199 07120 2 Daily as needed By Mouth False Baclofen 20 mg tablet [generic] 20 mg By Mouth 4 times a day For MUSCLE SPASMS 20 mg 2023 Active 2023 29489 26347 1 4 times a day By Mouth False Melatonin 3 mg tablet [generic] 1 tab By Mouth At bedtime as needed For INSOMNIA 1 tab 2023 Active 2023 39665 95402 8 At bedtime as needed By Mouth False Bactrim DS 800 mg-160 mg tablet 1 tab By Mouth Twice daily For URINARY TRACT INFECTION, SITE NOT SPECIFIED 1 tab 01/06 Inactiv e 2023 86609 52500 1 Twice daily By Mouth N39.0 False Cefdinir 300 mg capsule [generic] 300 mg By Mouth Twice daily For UTI 300 mg 01/07 Inactiv e 2023 60588 21119 0 Twice daily By Mouth False Cefdinir 300 mg capsule [generic] 300 mg By Mouth Twice daily For UTI 300 mg 01/17 Inactiv e 2023 09529 18392 0 Twice daily By Mouth False Zyrtec 10 mg tablet 10 mg By Mouth Once daily For sinus congestion 10 mg 01/22 Inactiv e 2023 87751 18063 0 Once daily By Mouth False Tobramycin 0.3 %-dexametha sone 0.1 % eye drops,suspe nsion [generic] 0.3-0.1 % Left Eye 4 times a day For eye infection 0.3-0.1 % 02/05 Inactiv e 2023 52354 63014 5 4 times a day Left Eye False Fluconazole 150 mg tablet [generic] 150 mg By Mouth 1 time For yeast infection 150 mg 02/15 Inactiv e 2023 55063 19687 2 1 time By Mouth False Tramadol 50 mg tablet [generic] 1 tab By Mouth Every 4 hours as needed For DX- PAIN 5-10 1 tab 2023 00/00 /0000 Active 2023 65430 52143 0 Every 4 hours as needed By Mouth False Tobramycin 0.3 %-dexametha sone 0.1 % eye drops,suspe nsion [generic] 1 drop Left Eye 4 times a day For Inflammation of left eye 1 drop 05/08 Inactiv e 2023 20653 35945 5 4 times a day Left Eye False Voltaren Arthritis Pain 1 % topical gel 2 gm Topical Twice daily to rigth shoulder for 2 weeks For pain 2 gm 05/08 Inactiv e 2023 28674 53347 1 Twice daily Topica l False Chlorthalid one 25 mg tablet [generic] 12.5mg By Mouth Once daily For HTN 12.5mg 05/06 Inactiv e 2023 39994 86167 0 Once daily By Mouth False Chlorthalid one 25 mg tablet [generic] 12.5mg By Mouth Once daily For HTN 12.5mg 05/07 Inactiv e 2023 49800 96896 0 Once daily By Mouth False Chlorthalid one 25 mg tablet [generic] 05/07 Inactiv e 2023 77284 64077 0 Chlorthalid one 25 mg tablet [generic] 12.5mg By Mouth Once daily For HTN 12.5mg 06/26 Inactiv e 2023 32772 20746 0 Once daily By Mouth False Norvasc 5 mg tablet 5mg By Mouth Once daily, hold medication if systolic is less than 90 For HYPERTENSIVE HEART DISEASE WITHOUT HEART FAILURE 5mg 06/03 Inactiv e 2023 40381 75652 1 Once daily By Mouth I11.9 False Norvasc 5 mg tablet 5mg By Mouth Once daily, hold medication if systolic is less than 90 For HYPERTENSIVE HEART DISEASE WITHOUT HEART FAILURE 5mg 06/03 Inactiv e 2023 45747 54869 1 Once daily By Mouth I11.9 False Norvasc 5 mg tablet 5mg By Mouth Once daily, hold medication if systolic is less than 90 For HYPERTENSIVE HEART DISEASE WITHOUT HEART FAILURE 5mg 06/26 Inactiv e 2023 15985 90701 1 Once daily By Mouth I11.9 False [...] 10 mg 2023 00/00 /0000 Active 2023 45310 93541 1 Once daily By Mouth False DISCONTINUE [...] CAD 81 mg 06/14 Inactiv e 2023 52971 38380 9 Once daily By Mouth False Aspirin 81 mg tablet,camron yed release [generic] 06/14 Inactiv e 2023 03368 11325 9 Aspirin 81 mg tablet,camron yed release [generic] 81 mg By Mouth Once daily Do not crush, chew, or break For CAD 81 mg 06/154 Inactiv e 2023 56020 92361 9 Once daily By Mouth False Cefpodoxime 200 mg tablet [generic] 200mg By Mouth Twice daily For UTI 200mg 07/04 Inactiv e 2023 83135 08524 0 Twice daily By Mouth False Calcium citrate 250 mg tablet [generic] 06/26 Inactiv e 2023 48382 11384 6 Calcium citrate 250 mg tablet [generic] Once daily TAKE 4 TABLETS (1000MG) BY MOUTH For SUPPLEMENT 500 MG 2023 Active 2023 49487 97997 6 Once daily By Mouth False Norvasc 5 mg tablet 7.5 mg By Mouth Once daily Hold medication if SBP <90 For HYPERTENSIVE HEART DISEASE WITHOUT HEART FAILURE 7.5 mg 06/30 Inactiv e 2023 92996 07201 1 Once daily By Mouth I11.9 False Norvasc 5 mg tablet 7.5 mg By Mouth Once daily Hold medication if SBP <90 For HYPERTENSIVE HEART DISEASE WITHOUT HEART FAILURE 7.5 mg 07/06 Inactiv e 2023 39304 98880 1 Once daily By Mouth I11.9 False Simethicone 125 mg capsule [generic] 2 capule By Mouth Twice daily as needed For bloating/gas pain 2 capule 2023 Active 2023 35709 97808 0 Twice daily as needed By Mouth False Cepacol Sore Throat (benzocaine -menthol) 15 mg-2.6 mg lozenges 2 lozenges By Mouth Every 6 hours as needed For sore throat 2 lozenge s 2023 Active 2023 03654 46680 6 Every 6 hours as needed By Mouth False Cefepime 1 gram solution for injection [generic] 1g Intramuscular Every 12 hours 1g intramuscular ly ever 12 hours For UTI 1g 07/06 Inactiv e 2023 30471 22114 4 Every 12 hours Intram uscula r False Cefepime 1 gram solution for injection [generic] 07/06 Inactiv e 2023 62242 98291 4 Cefepime 1 gram solution for injection [generic] 1g Intramuscular Every 12 hours 1g intramuscular ly ever 12 hours For UTI Reconstitute with 2.4 ML of NSS. 1g 07/08 Inactiv e 2023 16791 32249 4 Every 12 hours Intram uscula r False Norvasc 5 mg tablet 07/06 Inactiv e 2023 17681 64261 1 I11.9 Norvasc 5 mg tablet 7.5 mg By Mouth Once daily Hold medication if SBP <90 For HYPERTENSIVE HEART DISEASE WITHOUT HEART FAILURE 7.5 mg 07/18 Inactiv e 2023 26157 22776 1 Once daily By Mouth I11.9 False Cefepime 1 gram solution for injection [generic] 07/08 Inactiv e 2023 88959 56085 4 Cefepime 1 gram solution for injection [generic] 1g Intramuscular Every 12 hours 1g intramuscular ly ever 12 hours For UTI Reconstitute with 2.4 ML of NSS. 1g 07/08 Inactiv e 2023 72155 20814 4 Every 12 hours Intram uscula r False Cefepime 1 gram solution for injection [generic] 07/08 Inactiv e 2023 63683 45193 4 Cefepime 1 gram solution for injection [generic] 1g Intramuscular Every 12 hours 1g intramuscular ly ever 12 hours For UTI Reconstitute with 2.4 ML of NSS. 1g 07/11 Inactiv e 2023 50569 20348 4 Every 12 hours Intram uscula r False Fleet Enema 19 gram-7 gram/118 mL 1 Rectal 1 time For constipation 1 07/16 Inactiv e 2024 14631 96262 6 1 time Rectal False Fleet Enema 19 gram-7 gram/118 mL 1 Rectal 1 time For constipation 1 07/17 Inactiv e 2024 90596 63723 6 1 time Rectal False Norvasc 5 mg tablet 7.5 mg By Mouth Once daily For HYPERTENSIVE HEART DISEASE WITHOUT HEART FAILURE 7.5 mg 2024 00/00 /0000 Active 2024 31432 09738 1 Once daily By Mouth I11.9 False Potassium chloride ER 20 mEq tablet,exte nded release(par t/cryst) [generic] 40 mEq By Mouth 1 time For low potassium prior to surgery 40 mEq 07/18 Inactiv e 2024 82804 57448 1 1 time By Mouth False Potassium chloride ER 20 mEq tablet,exte nded release(par t/cryst) [generic] 40 mEq By Mouth 1 time For low potassium prior to surgery 40 mEq 07/18 Inactiv e 2024 23617 69082 1 1 time By Mouth False Potassium chloride ER 20 mEq tablet,exte nded release(par t/cryst) [generic] 40 mEq By Mouth 1 time For low potassium 40 mEq 07/18 Inactiv e 2024 57546 49097 1 1 time By Mouth False Potassium chloride ER 20 mEq tablet,exte nded release(par t/cryst) [generic] 40 mEq By Mouth 1 time For low potassium 40 mEq 07/18 Inactiv e 2024 87500 96191 1 1 time By Mouth False Potassium chloride ER 20 mEq tablet,exte nded release [generic] 2 By Mouth 1 time For low potassium 2 07/19 Inactiv e 2024 54952 62138 1 1 time By Mouth False Potassium chloride ER 20 mEq tablet,exte nded release [generic] 2 capsules capsules By Mouth 1 time Please send capsule (2 capsules) For low potassium 2 capsule s 07/20 Inactiv e 2024 78269 74059 1 1 time By Mouth False Potassium chloride ER 20 mEq tablet,exte nded release(par t/cryst) [generic] TAKE (2) TABLETS (40MEQ) BY MOUTH X1 DOSE 07/20 Inactiv e 2024 86328 04738 5 Cefepime 1 gram solution for injection [generic] 1 gram Intramuscular Every 12 hours For Urinary Tract Infection 1 gram 07/21 Inactiv e 2024 02384 45875 4 Every 12 hours Intram uscula r False Cefepime 1 gram solution for injection [generic] 07/21 Inactiv e 2024 41928 58585 4 Cefepime 1 gram solution for injection [generic] 1 gram Intramuscular Every 12 hours For Urinary Tract Infection 1 gram 07/22 Inactiv e 2024 16344 31839 4 Every 12 hours Intram uscula r False Cefepime 1 gram solution for injection [generic] 1 gram Intramuscular Every 12 hours For Urinary Tract Infection 1 gram 08/06 Active 2024 66506 48320 4 Every 12 hours Intram uscula r False Klor-Con 10 mEq tablet,exte nded release Klor- Con GIVE 2 Capsules daily Do NOT SEND Tablets Requesting Micro K 10 meq capsules For hyponatremia 2 capsule s 2024 00/00 /0000 Active 2024 34581 66355 1 Once daily By Mouth False Nystatin 100,000 unit/gram topical cream [generic] 100,000 unit Topical As Needed For DX- EXCORIATION 100,000 unit 12/12 Inactiv e 2023 71230 56335 5 Topica l False Vicks Vaporub 4.7 %-1.2 %-2.6 % topical ointment 4.7-1.2-2.6 Topical 3 times a day As Needed For DX- CONGESTION 4.7-1.2 -2.6 12/12 Inactiv e 2023 64819 99439 1 3 times a day Topica l False Ketoconazol e 2 % shampoo [generic] APPLY SHAMPOO TOPICALLY TO SCALP DURING HAIR WASHINGDX: ELVIA DERM OF SCALP For DX- ELVIA DERM OF SCALP 12/12 Inactiv e 2023 95453 27180 4 Topica l False THERA SILICONE SKIN GUARD Topical Twice daily 1 APPLICATION TOPICALLY IN THE MORNING AND AT BEDTIME TO SCROTUM For DX- PREVENTION 2023 Active 2023 Twice daily Topica l False Selenium sulfide 2.5 % lotion [generic] 2.5 % Topical EVERY MONDAY, MONDAY AND MONDAY AFTER SHOWER For DANDRUFF 2.5 % 2023 Active 2023 21410 13089 4 3 times a week Topica l False Nystatin (bulk) 100 million unit powder [generic] 100 million Topical Twice daily as needed For EXOCORATION 100 million 12/20 Inactiv e 2023 08995 70958 1 Twice daily as needed Topica l False Ketoconazol e 2 % shampoo [generic] Once daily APPLY SHAMPOO TOPICALLY TO SCALP DURING HAIR WASHING ON SHOWER DAYS- , , SAT For ELVIA DERM OF SCAP 2 % 2023 Active 2023 00504 70814 4 Once daily Topica l False Nystatin 100,000 unit/gram topical cream [generic] 1 amgue Topical Twice daily as needed For EXOCORATION 1 mague 06/05 Inactiv e 2023 66941 55264 5 Twice daily as needed Topica l False Nystatin 100,000 unit/gram topical powder [generic] 100,000 unit Topical Twice daily to scrotum with AM and PM care For Scrotal excoriation 100,000 unit 06/05 Inactiv e 2023 65487 85642 5 Twice daily Topica l False Problems [...] adjustment of urinary device 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 07/21 Active N31.9 [...] Temperature SpO2 Blood Sugar Pulse Respirations 216 89676 1 254.10 NI 216 04887 2 79.00 mm[Hg] - Sitting 157.00 mm[Hg] - Sitting 73 NI 254.10 NI 36.30 Tympanic 95.00 % 72.00/ min 16.00/min 73101 216 17938 4 98.80 Tympanic 02936 216 24810 2 78.00 mm[Hg] - Sitting 164.00 mm[Hg] - Sitting 92450 217 42048 3 98.20 Tympanic 10049 217 26293 5 73.00 mm[Hg] - Sitting 159.00 mm[Hg] - Sitting 59694 217 97145 9 98.40 Forehead Scan 218 27154 3 97.90 Tympanic 70765 218 17779 5 77.00 mm[Hg] - Sitting 137.00 mm[Hg] - Sitting 44413 219 44521 0 97.70 Tympanic 11450 219 82266 6 97.60 Tympanic 18776 219 00623 4 76.00 mm[Hg] - Sitting 139.00 mm[Hg] - Sitting 10237 219 41784 4 97.80 Forehead Scan 52454 220 44334 9 97.90 Tympanic 99864 220 53057 9 76.00 mm[Hg] - Sitting 138.00 mm[Hg] - Sitting 78464 220 13397 6 98.10 Tympanic 59875 221 53059 5 67.00 mm[Hg] - Sitting 142.00 mm[Hg] - Sitting 58719 221 03911 8 98.20 Tympanic 06308 221 17827 0 98.30 Tympanic 78793 222 51253 7 98.20 Tympanic 58111 222 49674 8 97.90 Tympanic 58457 223 30336 3 98.20 Tympanic 04366 223 78030 3 98.00 Tympanic 36333 224 65125 0 59.00 mm[Hg] - Sitting 111.00 mm[Hg] - Sitting 98.40 Forehead Scan 95.00 % 56.00/ min 18.00/min 62167 224 03407 9 98.20 Forehead Scan 30637 224 45702 3 97.90 Tympanic 13622 225 86885 4 98.20 Tympanic 03737 225 14293 8 97.50 Forehead Scan 53367 228 83993 0 55.00 mm[Hg] - Sitting 118.00 mm[Hg] - Sitting 98.40 Tympanic 69.00/ min 69303 229 51032 8 78.00 mm[Hg] - Sitting 152.00 mm[Hg] - Sitting 29819 230 70128 0 62.00 mm[Hg] - Sitting 122.00 mm[Hg] - Sitting 99806 231 29185 7 72.00 mm[Hg] - Lying Down 140.00 mm[Hg] - Lying Down 28737 101 45734 3 97.70 Forehead Scan 71606 101 46535 1 254.10 NI 69.00/ min 46806 101 59791 9 72.00 mm[Hg] - Sitting 142.00 mm[Hg] - Sitting 97.70 Tympanic 18.00/min 18773 101 05966 3 72.00 mm[Hg] - Lying Down 142.00 mm[Hg] - Lying Down 20292 102 83993 8 68.00 mm[Hg] - Lying Down 152.00 mm[Hg] - Lying Down 03135 103 81750 5 74.00 mm[Hg] - Sitting 158.00 mm[Hg] - Sitting 38675 104 06119 9 78.00 mm[Hg] - Sitting 144.00 mm[Hg] - Sitting 50036 105 67115 5 68.00 mm[Hg] - Sitting 138.00 mm[Hg] - Sitting 84916 106 73200 1 70.00 mm[Hg] - Sitting 138.00 mm[Hg] - Sitting 09603 107 49063 1 67.00 mm[Hg] - Sitting 142.00 mm[Hg] - Sitting 21236 108 23031 0 74.00 mm[Hg] - Sitting 143.00 mm[Hg] - Sitting 99550 110 15857 6 85.00 mm[Hg] - Sitting 160.00 mm[Hg] - Sitting 97.80 Tympanic 93.00 % 76.00/ min 18.00/min 53530 111 51570 1 83.00 mm[Hg] - Sitting 129.00 mm[Hg] - Sitting 98.60 Tympanic 92.00 % 71.00/ min 18.00/min 37278 111 47679 5 60.00 mm[Hg] - Sitting 114.00 mm[Hg] - Sitting 98.70 Tympanic 92.00 % 76.00/ min 18.00/min 60400 112 74235 4 55.00 mm[Hg] - Sitting 125.00 mm[Hg] - Sitting 98.60 Tympanic 91.00 % 68.00/ min 18.00/min 32240 112 29162 9 75.00 mm[Hg] - Sitting 174.00 mm[Hg] - Sitting 97.70 Tympanic 96.00 % 71.00/ min 18.00/min 88410 113 48214 2 77.00 mm[Hg] - Sitting 139.00 mm[Hg] - Sitting 98.10 Tympanic 97.00 % 81.00/ min 18.00/min 53593 113 13355 4 78.00 mm[Hg] - Sitting 153.00 mm[Hg] - Sitting 98.40 Tympanic 93.00 % 69.00/ min 18.00/min 15734 114 39117 5 76.00 mm[Hg] - Sitting 137.00 mm[Hg] - Sitting 98.10 Tympanic 97.00 % 80.00/ min 18.00/min 42675 114 45225 0 76.00 mm[Hg] - Sitting 145.00 mm[Hg] - Sitting 97.90 Tympanic 98.00 % 73.00/ min 18.00/min 18821 115 33362 3 98.40 Tympanic 87978 115 88674 5 79.00 mm[Hg] - Sitting 143.00 mm[Hg] [...]
--- OUTSIDE RECORDS SUMMARY | 2024-07-26 11:12 | External Medical Summary | Continuity Of Care Document ---
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 History Professor Name Role Phone DO Pritchett Amy Primary Care Provider [phone] Allergies Allergy Reaction Start Date End Date Status AMINOGLYCOSIDES Active CIPRO Active GENTAMICIN Active NSAIDS (NON-STEROIDAL ANTI-INFLAMMATORY DRUG) 0 Active IBUPROFEN Active QUINOLONES Active VALIUM Active Medications Medication Instructions Dosage Start Date End Date Status Order Date Drug Code Frequency Route of Admin Diagnosis Code Substitutions Allowed Spikevax [id number](1 2y up)(PF) 50 mcg/0.5 mL intramuscul ar suspension [COVID [id number](12 up)(andu)(P F)] 0.5mL Intramuscular 1 time Monitory 15 Minutes post injection for adverse effects; record site/temp For COVID 19 PREVENTION 0.5mL 01/02 Inactiv e 2023 23896 56952 4 1 time Intram uscula r False [facility] - Nurse initials indicate verificatio n that [id number] vaccine was administere d by [facility] 1 Intramuscular 1 time ( Indicate vaccine type) For vaccine 1 05/03 Inactiv e 2023 1 time Intram uscula r False Lisinopril 40 mg tablet [generic] TAKE ONE (1) TABLET BY MOUTH IN THE MORNING. For DX- HTN 1 2023 Active 2023 09574 05326 1 Once daily By Mouth False Tizanidine 2 mg tablet [generic] TAKE ONE (1) TABLET BY MOUTH ONCE DAILY For MUSCLE SPASM 1 2023 Active 2023 60254 09990 0 Once daily By Mouth M62.838 False Tamsulosin 0.4 mg capsule [generic] TAKE (1) CAPSULE BY MOUTH AT BEDTIME For SPASMS 1 2023 Active 2023 97669 31987 0 Once daily By Mouth False Aspirin 81 mg tablet Once daily 1 TABLET BY MOUTH IN THE MORNING For DX- CAD DO NOT CRUSH, CHEW OR BREAK 81 mg 06/12 Inactiv e 2023 Once daily By Mouth False Baclofen 20 mg tablet [generic] 20 mg By Mouth 4 times a day For DX- MUSCLE SPASMS 20 mg 12/12 Inactiv e 2023 27654 57782 1 4 times a day By Mouth False Calcium citrate 250 mg tablet Once daily 4 TABLET BY MOUTH For DX- SUPPLEMENT 250 mg calci 12/12 Inactiv e 2023 Once daily By Mouth False Co Q-10 100 mg capsule 100 mg By Mouth Once daily For DX- SUPPLEMENT 100 mg 06/20 Inactiv e 2023 46874 68957 5 Once daily By Mouth False Furosemide 20 mg tablet [generic] 20 mg By Mouth Once daily For DX-CHF 20 mg 12/12 Inactiv e 2023 99027 89047 0 Once daily By Mouth False Gabapentin 300 mg capsule [generic] 300 mg By Mouth 3 times a day For DX- NEUROPATHY 300 mg 12/12 Inactiv e 2023 25646 07344 4 3 times a day By Mouth False Loratadine 10 mg tablet [generic] 10 mg By Mouth Once daily For DX- ALLERGIES 10 mg 2023 Active 2023 59488 65184 1 Once daily By Mouth False Miralax 17 gram/dose oral powder 17 gram/dose By Mouth IN THE MORNING Mix 1 TABLESPOON IN 8 OZ OF FLUID HOLD FOR LOOSE STOOLS For DX- CONSTIPATION 17 gram/do se 12/12 Inactiv e 2023 25680 84298 0 Once daily By Mouth False Paroxetine 30 mg tablet [generic] 30 mg By Mouth Once daily For DX- DEPRESSION 30 mg 2023 00/00 /0000 Active 2023 54095 82206 3 Once daily By Mouth False Potassium citrate ER 15 mEq (1,620 mg) tablet,exte nded release [generic] 15 mEq By Mouth 3 times a day For DX- SUPPLEMENT/DI URETIC USE/ HYPOCITRAUIRA DO NOT CRUSH 15 mEq 12/12 Inactiv e 2023 06776 00908 1 3 times a day By Mouth [...] For DX- DANDRUFF 12/12 Inactiv e 2023 29746 70147 4 3 times a week Topica l False Acetaminoph en 325 mg tablet [generic] TAKE 2 TABS (650MG) BY MOUTH EVERY 4 HOURS NEEDED FOR TEMP >100 NOT TO EXCEED 3GM/24HRS TAKE 2 TABS (650MG) BY MOUTH EVERY 4 HOURS NEEDED FOR TEMP >100 NOT TO EXCEED 3GM/24HRS For DX-FEVER 2 12/12 Inactiv e 2023 30246 35201 0 By Mouth False MILK OF MAGNESIA ADMINISTER 30 ML BY MOUTH ONCE DAILY NEEDED FOR CONSTIPATION X3 DAYS WITH NO BM. For DX- CONSTIPATION 30ML 12/12 Inactiv e 2023 33853 62165 9 By Mouth False Enema Disposable 19 gram-7 gram/118 mL ADMINISTER ONE ENEMA RECTALLY ONCE DAILY NEEDED FOR CONSTIPATION ON DAY 6 OF NO BM For DX- CONSTIPATION 12/12 Inactiv e 2023 27339 16727 1 Rectal False TUMS EXTRA STR 750MG TAKE (1) TABLET BY MOUTH THREE TIMES DAILY NEEDED FOR INDIGESTION For DX- INDIGESTION 1 12/12 Inactiv e 2023 16162 11383 8 By Mouth False Vitamin D3 25 [...] CONSTIPATION 10 mg 12/12 Inactiv e 2023 79307 94085 1 Rectal False Melatonin 3 mg tablet [generic] 3 mg By Mouth As Needed For DX-INSOMMIA 3 mg 12/12 Inactiv e 2023 48951 93504 8 By Mouth False Hydrocortis one 1 % topical cream [generic] 1 % Topical As Needed For DX- PAIN 1 % 12/12 Inactiv e 2023 06673 24908 1 Topica l False HYDROCORTIS ONE/PARMOXI NE [...] 5-10 50 mg 12/20 Inactiv e 2023 80104 97931 0 Every 4 hours as needed By Mouth False Tylenol 325 mg tablet 325 mg By Mouth Every 4 hours as needed For DX- PAIN PRN FOR MILD PAIN, DO NOT EXCEED 3000MG APAP/24 HOURS 325 mg 12/20 Inactiv e 2023 11990 10155 0 Every 4 hours as needed By Mouth False Baclofen 20 mg tablet [generic] 20 mg By Mouth 4 times a day For MUSCLE SPASMS 20 mg 12/20 Inactiv e 2023 56293 79575 1 4 times a day By Mouth False Calcium citrate 250 mg tablet [generic] Once daily TAKE 4 TABLETS (1000MG) BY MOUTH For SUPPLEMENT 1000 MG 06/26 Inactiv e 2023 45003 13207 6 Once daily By Mouth False Dulcolax (bisacodyl) 10 mg rectal suppository 10 mg Rectal Once daily For CONSTIPATION *MAY HOLD FOR LOOSE STOOLS* 10 mg 2023 Active 2023 91674 21643 1 Once daily Rectal False Gabapentin 300 mg capsule [generic] 300 mg By Mouth 3 times a day For NEUROPATHY 300 mg 2023 Active 2023 57986 79940 4 3 times a day By Mouth False Potassium citrate ER 15 mEq (1,620 mg) tablet,exte nded release [generic] 15 mEq By Mouth 3 times a day For SUPPLEMENT/DI URETIC USE/HYPOCITRA URIA 15 mEq 06/11 Inactiv e 2023 77264 60653 1 3 times a day By Mouth False Potassium chloride ER 20 mEq tablet,exte nded release [generic] 20 mEq By Mouth 3 times a day *DO NOT CRUSH, CHEW OR BREAK* For SUPPLEMENT 20 mEq 12/18 Inactiv e 2023 69285 58581 1 3 times a day By Mouth False Tizanidine 4 mg tablet [generic] 4 mg By Mouth Once daily For MUSCLE SPASMS 4 mg 2023 Active 2023 37573 83883 0 Once daily By Mouth False Tylenol 325 mg tablet 2 tabs By Mouth Every 4 hours as needed For Fever >100 DO NOT EXCEED 3000 MG APAP/24 Hours 2 tabs 12/20 Inactiv e 2023 00456 48495 0 Every 4 hours as needed By Mouth False Dulcolax (bisacodyl) 10 mg rectal suppository Daily as needed For Constipation 1 sup 12/20 Inactiv e 2023 33247 47931 1 Daily as needed Rectal False Fleet Enema 19 gram-7 gram/118 mL 1 Rectal Daily as neededFor Constipation 1 12/20 Inactiv e 2023 08472 47115 6 Daily as needed Rectal False Milk of Magnesia 400 mg/5 mL oral suspension [Magnesium hydroxide] PRN 30ml By Mouth Daily as needed for constipation one time daily if no BM, on day 4 of no BM (PRN refer to instructions) For Constipation For Constipatioin 30ml 12/20 Inactiv e 2023 06242 88049 6 1 time By Mouth False Melatonin 3 mg tablet [generic] 3 mg By Mouth Once daily As Needed For INSOMNIA 3 mg 12/20 Inactiv e 2023 00156 31429 8 Once daily By Mouth False Hydrocortis one 1 % topical cream [generic] 1 % Rectal Four times daily as needed For hemorroid pain 1 % 12/20 Inactiv e 2023 92094 00888 1 Four times daily as needed Rectal False X-STGH ANTACID 750MG CHEW TAKE (1) TABLET BY MOUTH THREE TIMES DAILY NEEDED FOR INDIGESTION 12/20 Inactiv e 2023 48157 35233 4 Three times daily as needed Saline Mist 0.65 % nasal spray aerosol 0.65 % Nares Four times daily as needed For DRYNESS 0.65 % 12/20 Inactiv e 2023 29508 10946 8 Four times daily as needed Nares False Vicks Vaporub 4.7 %-1.2 %-2.6 % topical ointment Apply topically to chest Three times daily as needed For CONGESTION 4.7-1.2 -2.6 12/20 Inactiv e 2023 58901 08865 1 Three times daily as needed Topica l False VITAMIN D3 2000U CAP TAKE ONE (1) CAPSULE BY MOUTH DAILY* DO NOT CRUSH, CHEW OR BREAK* For Supplement 1 capsule 12/19 Inactiv e 2023 58364 69782 0 Once daily By Mouth False Potassium chloride ER 20 mEq tablet,exte nded release(par t/cryst) [generic] TAKE (1) TABLET BY MOUTH THREE TIMES DAILY (MORNING, AFTERNOON, EVENING)*DO NOT CRUSH, CHEW, OR BREAK* For SUPPLEMENT 20 MEQ 06/11 Inactiv e 2023 53337 04312 5 3 times a day By Mouth False Aspirin 81 mg tablet,camron yed release [generic] TAKE ONE (1) TABLET BY MOUTH ONCE DAILY*DO NOT CRUSH, CHEW OR BREAK* For CAD 81 MG 12/22 Inactiv e 2023 59660 81855 0 Once daily By Mouth False Furosemide 20 mg tablet [generic] TAKE 1 AND 1/2 TABLETS (30MG) BY MOUTH ONCE DAILY For CHF 30mg 2023 Active 2023 85288 76568 1 Once daily By Mouth False Polyethylen e glycol 3350 17 gram/dose oral powder [generic] MIX 17 GRAMS (1 CAPFUL) IN 60Z OF LIQUID AND DRINK BY MOUTH ONCE DAILY *HOLD FOR LOOSE STOOLS* For constipation 17 g 2023 Active 2023 25579 37150 3 Once daily By Mouth False Vitamin D3 50 mcg (2,000 unit) capsule Once daily TAKE ONE (1) CAPSULE BY MOUTH DAILY* DO NOT CRUSH, CHEW OR BREAK* For Supplement 1 capsule 02/07 Inactiv e 2023 46870 46566 2 Once daily By Mouth False Fleet Enema 19 gram-7 gram/118 mL 1 Rectal Daily as neededFor Constipation 1 2023 0000 Active 2023 34615 14466 6 Daily as needed Rectal False Tums E-X 300 mg (as calcium carbonate 750 mg) chewable tablet 1 tab By Mouth TAKE (1) TABLET BY MOUTH THREE TIMES DAILY NEEDED FOR INDIGESTION 1 tab 202300 /0000 Active 2023 65006 94093 1 Three times daily as needed By Mouth False Tylenol 325 mg tablet 2 tabs By Mouth Every 4 hours as needed For Fever >100 DO NOT EXCEED 3000 MG APAP/24 Hours 2 tabs 202300 /0000 Active 2023 30398 14547 0 Every 4 hours as needed By Mouth False Vicks Vaporub 4.7 %-1.2 %-2.6 % topical ointment Apply topically to chest Three times daily as needed For CONGESTION topical 202300 Active 2023 85768 02863 1 Three times daily as needed Topica l False Tylenol 325 mg tablet 2 tabs By Mouth Every 4 hours as needed For DX- PAIN PRN FOR MILD PAIN, DO NOT EXCEED 3000MG APAP/24 HOURS 2 tabs 202300 Active 2023 23264 38256 0 Every 4 hours as needed By Mouth False Tramadol 50 mg tablet [generic] 1 tab By Mouth Every 4 hours as needed For DX- PAIN 5-10 1 tab 03/10 Inactiv e 2023 01350 22457 0 Every 4 hours as needed By Mouth False Saline Mist 0.65 % nasal spray aerosol 2 sprays Nares Four times daily as needed For DRYNESS 2 sprays 202300 / Active 2023 17903 64624 8 Four times daily as needed Nares False Dulcolax (bisacodyl) 10 mg rectal suppository Daily as needed For Constipation 1 sup 202300 / Active 2023 31074 66027 1 Daily as needed Rectal False Hydrocortis one-pramoxi ne 1 %-1 % rectal cream [generic] 1 mague Rectal Four times daily as needed For hemorroid pain 1 mague 202300 /0000 Active 2023 35948 75966 4 Four times daily as needed Rectal False Melatonin 3 mg tablet [generic] 1 tab By Mouth At bedtime as needed For INSOMNIA 1 tab 12/24 Inactiv e 2023 40557 12202 8 At bedtime as needed By Mouth False Milk of Magnesia 400 mg/5 mL oral suspension 30ml By Mouth Daily as needed Daily as needed for constipation one time daily if no BM, on day 4 of no BM (PRN refer to instructions) For Constipation For Constipatioin 30ml 2023 Active 2023 22786 74802 2 Daily as needed By Mouth False Baclofen 20 mg tablet [generic] 20 mg By Mouth 4 times a day For MUSCLE SPASMS 20 mg 2023 Active 2023 81631 12389 1 4 times a day By Mouth False Melatonin 3 mg tablet [generic] 1 tab By Mouth At bedtime as needed For INSOMNIA 1 tab 2023 Active 2023 97646 05919 8 At bedtime as needed By Mouth False Bactrim DS 800 mg-160 mg tablet 1 tab By Mouth Twice daily For URINARY TRACT INFECTION, SITE NOT SPECIFIED 1 tab 01/06 Inactiv e 2023 54715 10246 1 Twice daily By Mouth N39.0 False Cefdinir 300 mg capsule [generic] 300 mg By Mouth Twice daily For UTI 300 mg 01/07 Inactiv e 2023 65886 68619 0 Twice daily By Mouth False Cefdinir 300 mg capsule [generic] 300 mg By Mouth Twice daily For UTI 300 mg 01/17 Inactiv e 2023 53281 26883 0 Twice daily By Mouth False Zyrtec 10 mg tablet 10 mg By Mouth Once daily For sinus congestion 10 mg 01/22 Inactiv e 2023 93138 69940 0 Once daily By Mouth False Tobramycin 0.3 %-dexametha sone 0.1 % eye drops,suspe nsion [generic] 0.3-0.1 % Left Eye 4 times a day For eye infection 0.3-0.1 % 02/05 Inactiv e 2023 61842 31514 5 4 times a day Left Eye False Fluconazole 150 mg tablet [generic] 150 mg By Mouth 1 time For yeast infection 150 mg 02/15 Inactiv e 2023 56285 70265 2 1 time By Mouth False Tramadol 50 mg tablet [generic] 1 tab By Mouth Every 4 hours as needed For DX- PAIN 5-10 1 tab 2023 00/00 /0000 Active 2023 81848 50860 0 Every 4 hours as needed By Mouth False Tobramycin 0.3 %-dexametha sone 0.1 % eye drops,suspe nsion [generic] 1 drop Left Eye 4 times a day For Inflammation of left eye 1 drop 05/08 Inactiv e 2023 70726 15700 5 4 times a day Left Eye False Voltaren Arthritis Pain 1 % topical gel 2 gm Topical Twice daily to rigth shoulder for 2 weeks For pain 2 gm 05/08 Inactiv e 2023 42583 67407 1 Twice daily Topica l False Chlorthalid one 25 mg tablet [generic] 12.5mg By Mouth Once daily For HTN 12.5mg 05/06 Inactiv e 2023 80579 55147 0 Once daily By Mouth False Chlorthalid one 25 mg tablet [generic] 12.5mg By Mouth Once daily For HTN 12.5mg 05/07 Inactiv e 2023 46721 76156 0 Once daily By Mouth False Chlorthalid one 25 mg tablet [generic] 05/07 Inactiv e 2023 91510 39829 0 Chlorthalid one 25 mg tablet [generic] 12.5mg By Mouth Once daily For HTN 12.5mg 06/26 Inactiv e 2023 54556 55061 0 Once daily By Mouth False Norvasc 5 mg tablet 5mg By Mouth Once daily, hold medication if systolic is less than 90 For HYPERTENSIVE HEART DISEASE WITHOUT HEART FAILURE 5mg 06/03 Inactiv e 2023 75174 79063 1 Once daily By Mouth I11.9 False Norvasc 5 mg tablet 5mg By Mouth Once daily, hold medication if systolic is less than 90 For HYPERTENSIVE HEART DISEASE WITHOUT HEART FAILURE 5mg 06/03 Inactiv e 2023 01122 65721 1 Once daily By Mouth I11.9 False Norvasc 5 mg tablet 5mg By Mouth Once daily, hold medication if systolic is less than 90 For HYPERTENSIVE HEART DISEASE WITHOUT HEART FAILURE 5mg 06/26 Inactiv e 2023 04419 98404 1 Once daily By Mouth I11.9 False [...] 10 mg 2023 00/00 /0000 Active 2023 94867 11466 1 Once daily By Mouth False DISCONTINUE [...] CAD 81 mg 06/14 Inactiv e 2023 44946 05768 9 Once daily By Mouth False Aspirin 81 mg tablet,camron yed release [generic] 06/14 Inactiv e 2023 95558 76149 9 Aspirin 81 mg tablet,camron yed release [generic] 81 mg By Mouth Once daily Do not crush, chew, or break For CAD 81 mg 06/154 Inactiv e 2023 64205 69115 9 Once daily By Mouth False Cefpodoxime 200 mg tablet [generic] 200mg By Mouth Twice daily For UTI 200mg 07/04 Inactiv e 2023 13617 33313 0 Twice daily By Mouth False Calcium citrate 250 mg tablet [generic] 06/26 Inactiv e 2023 54110 13710 6 Calcium citrate 250 mg tablet [generic] Once daily TAKE 4 TABLETS (1000MG) BY MOUTH For SUPPLEMENT 500 MG 2023 Active 2023 21048 38235 6 Once daily By Mouth False Norvasc 5 mg tablet 7.5 mg By Mouth Once daily Hold medication if SBP <90 For HYPERTENSIVE HEART DISEASE WITHOUT HEART FAILURE 7.5 mg 06/30 Inactiv e 2023 83971 66069 1 Once daily By Mouth I11.9 False Norvasc 5 mg tablet 7.5 mg By Mouth Once daily Hold medication if SBP <90 For HYPERTENSIVE HEART DISEASE WITHOUT HEART FAILURE 7.5 mg 07/06 Inactiv e 2023 49781 80869 1 Once daily By Mouth I11.9 False Simethicone 125 mg capsule [generic] 2 capule By Mouth Twice daily as needed For bloating/gas pain 2 capule 2023 Active 2023 57959 35688 0 Twice daily as needed By Mouth False Cepacol Sore Throat (benzocaine -menthol) 15 mg-2.6 mg lozenges 2 lozenges By Mouth Every 6 hours as needed For sore throat 2 lozenge s 2023 Active 2023 85937 08918 6 Every 6 hours as needed By Mouth False Cefepime 1 gram solution for injection [generic] 1g Intramuscular Every 12 hours 1g intramuscular ly ever 12 hours For UTI 1g 07/06 Inactiv e 2023 34895 28014 4 Every 12 hours Intram uscula r False Cefepime 1 gram solution for injection [generic] 07/06 Inactiv e 2023 80117 78724 4 Cefepime 1 gram solution for injection [generic] 1g Intramuscular Every 12 hours 1g intramuscular ly ever 12 hours For UTI Reconstitute with 2.4 ML of NSS. 1g 07/08 Inactiv e 2023 89272 79731 4 Every 12 hours Intram uscula r False Norvasc 5 mg tablet 07/06 Inactiv e 2023 00817 72169 1 I11.9 Norvasc 5 mg tablet 7.5 mg By Mouth Once daily Hold medication if SBP <90 For HYPERTENSIVE HEART DISEASE WITHOUT HEART FAILURE 7.5 mg 07/18 Inactiv e 2023 95918 45259 1 Once daily By Mouth I11.9 False Cefepime 1 gram solution for injection [generic] 07/08 Inactiv e 2023 67973 56066 4 Cefepime 1 gram solution for injection [generic] 1g Intramuscular Every 12 hours 1g intramuscular ly ever 12 hours For UTI Reconstitute with 2.4 ML of NSS. 1g 07/08 Inactiv e 2023 03247 64262 4 Every 12 hours Intram uscula r False Cefepime 1 gram solution for injection [generic] 07/08 Inactiv e 2023 45037 49975 4 Cefepime 1 gram solution for injection [generic] 1g Intramuscular Every 12 hours 1g intramuscular ly ever 12 hours For UTI Reconstitute with 2.4 ML of NSS. 1g 07/11 Inactiv e 2023 04608 24149 4 Every 12 hours Intram uscula r False Fleet Enema 19 gram-7 gram/118 mL 1 Rectal 1 time For constipation 1 07/16 Inactiv e 2024 89065 06347 6 1 time Rectal False Fleet Enema 19 gram-7 gram/118 mL 1 Rectal 1 time For constipation 1 07/17 Inactiv e 2024 67463 76367 6 1 time Rectal False Norvasc 5 mg tablet 7.5 mg By Mouth Once daily For HYPERTENSIVE HEART DISEASE WITHOUT HEART FAILURE 7.5 mg 2024 00/00 /0000 Active 2024 34335 01088 1 Once daily By Mouth I11.9 False Potassium chloride ER 20 mEq tablet,exte nded release(par t/cryst) [generic] 40 mEq By Mouth 1 time For low potassium prior to surgery 40 mEq 07/18 Inactiv e 2024 75015 75272 1 1 time By Mouth False Potassium chloride ER 20 mEq tablet,exte nded release(par t/cryst) [generic] 40 mEq By Mouth 1 time For low potassium prior to surgery 40 mEq 07/18 Inactiv e 2024 56214 27667 1 1 time By Mouth False Potassium chloride ER 20 mEq tablet,exte nded release(par t/cryst) [generic] 40 mEq By Mouth 1 time For low potassium 40 mEq 07/18 Inactiv e 2024 00877 98110 1 1 time By Mouth False Potassium chloride ER 20 mEq tablet,exte nded release(par t/cryst) [generic] 40 mEq By Mouth 1 time For low potassium 40 mEq 07/18 Inactiv e 2024 63672 11020 1 1 time By Mouth False Potassium chloride ER 20 mEq tablet,exte nded release [generic] 2 By Mouth 1 time For low potassium 2 07/19 Inactiv e 2024 87145 95738 1 1 time By Mouth False Potassium chloride ER 20 mEq tablet,exte nded release [generic] 2 capsules capsules By Mouth 1 time Please send capsule (2 capsules) For low potassium 2 capsule s 07/20 Inactiv e 2024 60992 58983 1 1 time By Mouth False Potassium chloride ER 20 mEq tablet,exte nded release(par t/cryst) [generic] TAKE (2) TABLETS (40MEQ) BY MOUTH X1 DOSE 07/20 Inactiv e 2024 45361 06519 5 Cefepime 1 gram solution for injection [generic] 1 gram Intramuscular Every 12 hours For Urinary Tract Infection 1 gram 07/21 Inactiv e 2024 66886 16618 4 Every 12 hours Intram uscula r False Cefepime 1 gram solution for injection [generic] 07/21 Inactiv e 2024 26016 45436 4 Cefepime 1 gram solution for injection [generic] 1 gram Intramuscular Every 12 hours For Urinary Tract Infection 1 gram 07/22 Inactiv e 2024 38710 16861 4 Every 12 hours Intram uscula r False Cefepime 1 gram solution for injection [generic] 1 gram Intramuscular Every 12 hours For Urinary Tract Infection 1 gram 08/06 Active 2024 97387 51589 4 Every 12 hours Intram uscula r False Nystatin 100,000 unit/gram topical cream [generic] 100,000 unit Topical As Needed For DX- EXCORIATION 100,000 unit 12/12 Inactiv e 2023 88020 79704 5 Topica l False Vicks Vaporub 4.7 %-1.2 %-2.6 % topical ointment 4.7-1.2-2.6 Topical 3 times a day As Needed For DX- CONGESTION 4.7-1.2 -2.6 12/12 Inactiv e 2023 71994 61853 1 3 times a day Topica l False Ketoconazol e 2 % shampoo [generic] APPLY SHAMPOO TOPICALLY TO SCALP DURING HAIR WASHINGDX: ELVIA DERM OF SCALP For DX- ELVIA DERM OF SCALP 12/12 Inactiv e 2023 70620 38114 4 Topica l False THERA SILICONE SKIN GUARD Topical Twice daily 1 APPLICATION TOPICALLY IN THE MORNING AND AT BEDTIME TO SCROTUM For DX- PREVENTION 2023 00/00 /0000 Active 2023 Twice daily Topica l False Selenium sulfide 2.5 % lotion [generic] 2.5 % Topical EVERY MONDAY, MONDAY AND MONDAY AFTER SHOWER For DANDRUFF 2.5 % 2023 Active 2023 72459 19506 4 3 times a week Topica l False Nystatin (bulk) 100 million unit powder [generic] 100 million Topical Twice daily as needed For EXOCORATION 100 million 12/20 Inactiv e 2023 93441 21475 1 Twice daily as needed Topica l False Ketoconazol e 2 % shampoo [generic] Once daily APPLY SHAMPOO TOPICALLY TO SCALP DURING HAIR WASHING ON SHOWER DAYS- , , SAT For ELVIA DERM OF SCAP 2 % 2023 Active 2023 59788 35050 4 Once daily Topica l False Nystatin 100,000 unit/gram topical cream [generic] 1 mague Topical Twice daily as needed For EXOCORATION 1 mague 06/05 Inactiv e 2023 41246 24029 5 Twice daily as needed Topica l False Nystatin 100,000 unit/gram topical powder [generic] 100,000 unit Topical Twice daily to scrotum with AM and PM care For Scrotal excoriation 100,000 unit 06/05 Inactiv e 2023 73436 19577 5 Twice daily Topica l False Problems [...] weight Temperature SpO2 Blood Sugar Pulse Respirations 37858 216 86880 1 254.10 NI 88039 216 47613 2 79.00 mm[Hg] - Sitting 157.00 mm[Hg] - Sitting 73 NI 254.10 NI 36.30 Tympanic 95.00 % 72.00/ min 16.00/min 86149 216 73311 4 98.80 Tympanic 36033 216 10601 2 78.00 mm[Hg] - Sitting 164.00 mm[Hg] - Sitting 48265 217 12872 3 98.20 Tympanic 12455 217 04665 5 73.00 mm[Hg] - Sitting 159.00 mm[Hg] - Sitting 56765 217 94524 9 98.40 Forehead Scan 50349 218 32486 3 97.90 Tympanic 18538 218 28710 5 77.00 mm[Hg] - Sitting 137.00 mm[Hg] - Sitting 63668 219 04503 0 97.70 Tympanic 79922 219 04688 6 97.60 Tympanic 46250 219 59717 4 76.00 mm[Hg] - Sitting 139.00 mm[Hg] - Sitting 52992 219 25778 4 97.80 Forehead Scan 08455 220 47204 9 97.90 Tympanic 60678 220 07235 9 76.00 mm[Hg] - Sitting 138.00 mm[Hg] - Sitting 20012 220 49117 6 98.10 Tympanic 51528 221 02660 5 67.00 mm[Hg] - Sitting 142.00 mm[Hg] - Sitting 97181 221 38636 8 98.20 Tympanic 04668 221 28127 0 98.30 Tympanic 16750 222 74656 7 98.20 Tympanic 03336 222 51371 8 97.90 Tympanic 54555 223 07928 3 98.20 Tympanic 86131 223 81767 3 98.00 Tympanic 30015 224 69518 0 59.00 mm[Hg] - Sitting 111.00 mm[Hg] - Sitting 98.40 Forehead Scan 95.00 % 56.00/ min 18.00/min 56260 224 48390 9 98.20 Forehead Scan 32070 224 90542 3 97.90 Tympanic 29926 225 79067 4 98.20 Tympanic 49920 225 91120 8 97.50 Forehead Scan 10827 228 59680 0 55.00 mm[Hg] - Sitting 118.00 mm[Hg] - Sitting 98.40 Tympanic 69.00/ min 51038 229 31229 8 78.00 mm[Hg] - Sitting 152.00 mm[Hg] - Sitting 10822 230 73052 0 62.00 mm[Hg] - Sitting 122.00 mm[Hg] - Sitting 94878 231 31410 7 72.00 mm[Hg] - Lying Down 140.00 mm[Hg] - Lying Down 86685 101 38854 3 97.70 Forehead Scan 45770 101 35387 1 254.10 NI 69.00/ min 59414 101 95647 9 72.00 mm[Hg] - Sitting 142.00 mm[Hg] - Sitting 97.70 Tympanic 18.00/min 32251 101 12661 3 72.00 mm[Hg] - Lying Down 142.00 mm[Hg] - Lying Down 50655 102 11589 8 68.00 mm[Hg] - Lying Down 152.00 mm[Hg] - Lying Down 26804 103 02469 5 74.00 mm[Hg] - Sitting 158.00 mm[Hg] - Sitting 53999 104 53797 9 78.00 mm[Hg] - Sitting 144.00 mm[Hg] - Sitting 21619 105 72765 5 68.00 mm[Hg] - Sitting 138.00 mm[Hg] - Sitting 05773 106 67751 1 70.00 mm[Hg] - Sitting 138.00 mm[Hg] - Sitting 67653 107 15174 1 67.00 mm[Hg] - Sitting 142.00 mm[Hg] - Sitting 22054 108 26653 0 74.00 mm[Hg] - Sitting 143.00 mm[Hg] - Sitting 70778 110 39721 6 85.00 mm[Hg] - Sitting 160.00 mm[Hg] - Sitting 97.80 Tympanic 93.00 % 76.00/ min 18.00/min 98376 111 72089 1 83.00 mm[Hg] - Sitting 129.00 mm[Hg] - Sitting 98.60 Tympanic 92.00 % 71.00/ min 18.00/min 17591 111 72268 5 60.00 mm[Hg] - Sitting 114.00 mm[Hg] - Sitting 98.70 Tympanic 92.00 % 76.00/ min 18.00/min 76744 112 20472 4 55.00 mm[Hg] - Sitting 125.00 mm[Hg] - Sitting 98.60 Tympanic 91.00 % 68.00/ min 18.00/min 37007 112 53002 9 75.00 mm[Hg] - Sitting 174.00 mm[Hg] - Sitting 97.70 Tympanic 96.00 % 71.00/ min 18.00/min [id number] 2 77.00 mm[Hg] - Sitting 139.00 mm[Hg] - Sitting 98.10 Tympanic 97.00 % 81.00/ min 18.00/min 60240 113 12629 4 78.00 mm[Hg] - Sitting 153.00 mm[Hg] - Sitting 98.40 Tympanic 93.00 % 69.00/ min 18.00/min [id number] 114 94879 5 76.00 mm[Hg] - Sitting 137.00 mm[Hg] [...]
--- OUTSIDE RECORDS SUMMARY | 2024-07-26 11:13 | External Medical Summary | Continuity Of Care Document ---
Author Name Unknown Address [address] [place] [place] [address] Organization [facility] () Care Team Providers Care Zinc Etcher Name Role Phone DO Pritchett Amy Primary Care Provider [phone] Allergies Allergy Reaction Start Date End Date Status AMINOGLYCOSIDES Active CIPRO Active GENTAMICIN Active NSAIDS (NON-STEROIDAL ANTI-INFLAMMATORY DRUG) 0 Active IBUPROFEN Active QUINOLONES Active VALIUM Active Medications Medication Instructions Dosage Start Date End Date Status Order Date Drug Code Frequency Route of Admin Diagnosis Code Substitutions Allowed Spikevax [id number](1 2y up)(PF) 50 mcg/0.5 mL intramuscul ar suspension [COVID [id number](12 up)(andu)(P F)] 0.5mL Intramuscular 1 time Monitory 15 Minutes post injection for adverse effects; record site/temp For COVID 19 PREVENTION 0.5mL 01/02 Inactiv e 2023 72196 68363 4 1 time Intram uscula r False [facility] - Nurse initials indicate verificatio n that [id number] vaccine was administere d by [facility] Representat jon 1 Intramuscular 1 time ( Indicate vaccine type) For vaccine 1 05/03 Inactiv e 2023 1 time Intram uscula r False Lisinopril 40 mg tablet [generic] TAKE ONE (1) TABLET BY MOUTH IN THE MORNING. For DX- HTN 1 2023 Active 2023 00274 16007 1 Once daily By Mouth False Tizanidine 2 mg tablet [generic] TAKE ONE (1) TABLET BY MOUTH ONCE DAILY For MUSCLE SPASM 1 2023 Active 2023 89509 26383 0 Once daily By Mouth M62.838 False Tamsulosin 0.4 mg capsule [generic] TAKE (1) CAPSULE BY MOUTH AT BEDTIME For SPASMS 1 2023 Active 2023 06272 96100 0 Once daily By Mouth False Aspirin 81 mg tablet Once daily 1 TABLET BY MOUTH IN THE MORNING For DX- CAD DO NOT CRUSH, CHEW OR BREAK 81 mg 06/12 Inactiv e 2023 Once daily By Mouth False Baclofen 20 mg tablet [generic] 20 mg By Mouth 4 times a day For DX- MUSCLE SPASMS 20 mg 12/12 Inactiv e 2023 99131 53196 1 4 times a day By Mouth False Calcium citrate 250 mg tablet Once daily 4 TABLET BY MOUTH For DX- SUPPLEMENT 250 mg calci 12/12 Inactiv e 2023 Once daily By Mouth False Co Q-10 100 mg capsule 100 mg By Mouth Once daily For DX- SUPPLEMENT 100 mg 06/20 Inactiv e 2023 68656 41148 5 Once daily By Mouth False Furosemide 20 mg tablet [generic] 20 mg By Mouth Once daily For DX-CHF 20 mg 12/12 Inactiv e 2023 10212 50321 0 Once daily By Mouth False Gabapentin 300 mg capsule [generic] 300 mg By Mouth 3 times a day For DX- NEUROPATHY 300 mg 12/12 Inactiv e 2023 01756 71646 4 3 times a day By Mouth False Loratadine 10 mg tablet [generic] 10 mg By Mouth Once daily For DX- ALLERGIES 10 mg 2023 Active 2023 57679 61914 1 Once daily By Mouth False Miralax 17 gram/dose oral powder 17 gram/dose By Mouth IN THE MORNING Mix 1 TABLESPOON IN 8 OZ OF FLUID HOLD FOR LOOSE STOOLS For DX- CONSTIPATION 17 gram/do se 12/12 Inactiv e 2023 34897 82802 0 Once daily By Mouth False Paroxetine 30 mg tablet [generic] 30 mg By Mouth Once daily For DX- DEPRESSION 30 mg 2023 00/00 /0000 Active 2023 32282 57799 3 Once daily By Mouth False Potassium citrate ER 15 mEq (1,620 mg) tablet,exte nded release [generic] 15 mEq By Mouth 3 times a day For DX- SUPPLEMENT/DI URETIC USE/ HYPOCITRAUIRA DO NOT CRUSH 15 mEq 12/12 Inactiv e 2023 49085 34574 1 3 times a day By Mouth [...] For DX- DANDRUFF 12/12 Inactiv e 2023 96502 76690 4 3 times a week Topica l False Acetaminoph en 325 mg tablet [generic] TAKE 2 TABS (650MG) BY MOUTH EVERY 4 HOURS NEEDED FOR TEMP >100 NOT TO EXCEED 3GM/24HRS TAKE 2 TABS (650MG) BY MOUTH EVERY 4 HOURS NEEDED FOR TEMP >100 NOT TO EXCEED 3GM/24HRS For DX-FEVER 2 12/12 Inactiv e 2023 61515 67489 0 By Mouth False MILK OF MAGNESIA ADMINISTER 30 ML BY MOUTH ONCE DAILY NEEDED FOR CONSTIPATION X3 DAYS WITH NO BM. For DX- CONSTIPATION 30ML 12/12 Inactiv e 2023 74934 94805 9 By Mouth False Enema Disposable 19 gram-7 gram/118 mL ADMINISTER ONE ENEMA RECTALLY ONCE DAILY NEEDED FOR CONSTIPATION ON DAY 6 OF NO BM For DX- CONSTIPATION 12/12 Inactiv e 2023 82153 77760 1 Rectal False TUMS EXTRA STR 750MG TAKE (1) TABLET BY MOUTH THREE TIMES DAILY NEEDED FOR INDIGESTION For DX- INDIGESTION 1 12/12 Inactiv e 2023 23443 17847 8 By Mouth False Vitamin D3 25 [...] CONSTIPATION 10 mg 12/12 Inactiv e 2023 38746 20595 1 Rectal False Melatonin 3 mg tablet [generic] 3 mg By Mouth As Needed For DX-INSOMMIA 3 mg 12/12 Inactiv e 2023 07646 71374 8 By Mouth False Hydrocortis one 1 % topical cream [generic] 1 % Topical As Needed For DX- PAIN 1 % 12/12 Inactiv e 2023 19529 21689 1 Topica l False HYDROCORTIS ONE/PARMOXI NE [...] 5-10 50 mg 12/20 Inactiv e 2023 99456 96359 0 Every 4 hours as needed By Mouth False Tylenol 325 mg tablet 325 mg By Mouth Every 4 hours as needed For DX- PAIN PRN FOR MILD PAIN, DO NOT EXCEED 3000MG APAP/24 HOURS 325 mg 12/20 Inactiv e 2023 70110 27534 0 Every 4 hours as needed By Mouth False Baclofen 20 mg tablet [generic] 20 mg By Mouth 4 times a day For MUSCLE SPASMS 20 mg 12/20 Inactiv e 2023 91228 62825 1 4 times a day By Mouth False Calcium citrate 250 mg tablet [generic] Once daily TAKE 4 TABLETS (1000MG) BY MOUTH For SUPPLEMENT 1000 MG 06/26 Inactiv e 2023 58607 93777 6 Once daily By Mouth False Dulcolax (bisacodyl) 10 mg rectal suppository 10 mg Rectal Once daily For CONSTIPATION *MAY HOLD FOR LOOSE STOOLS* 10 mg 2023 Active 2023 89663 95848 1 Once daily Rectal False Gabapentin 300 mg capsule [generic] 300 mg By Mouth 3 times a day For NEUROPATHY 300 mg 2023 Active 2023 22608 58796 4 3 times a day By Mouth False Potassium citrate ER 15 mEq (1,620 mg) tablet,exte nded release [generic] 15 mEq By Mouth 3 times a day For SUPPLEMENT/DI URETIC USE/HYPOCITRA URIA 15 mEq 06/11 Inactiv e 2023 40925 23729 1 3 times a day By Mouth False Potassium chloride ER 20 mEq tablet,exte nded release [generic] 20 mEq By Mouth 3 times a day *DO NOT CRUSH, CHEW OR BREAK* For SUPPLEMENT 20 mEq 12/18 Inactiv e 2023 39204 21315 1 3 times a day By Mouth False Tizanidine 4 mg tablet [generic] 4 mg By Mouth Once daily For MUSCLE SPASMS 4 mg 2023 Active 2023 46325 07686 0 Once daily By Mouth False Tylenol 325 mg tablet 2 tabs By Mouth Every 4 hours as needed For Fever >100 DO NOT EXCEED 3000 MG APAP/24 Hours 2 tabs 12/20 Inactiv e 2023 47129 63610 0 Every 4 hours as needed By Mouth False Dulcolax (bisacodyl) 10 mg rectal suppository Daily as needed For Constipation 1 sup 12/20 Inactiv e 2023 27995 26820 1 Daily as needed Rectal False Fleet Enema 19 gram-7 gram/118 mL 1 Rectal Daily as neededFor Constipation 1 12/20 Inactiv e 2023 79259 24900 6 Daily as needed Rectal False Milk of Magnesia 400 mg/5 mL oral suspension [Magnesium hydroxide] PRN 30ml By Mouth Daily as needed for constipation one time daily if no BM, on day 4 of no BM (PRN refer to instructions) For Constipation For Constipatioin 30ml 12/20 Inactiv e 2023 96483 47399 6 1 time By Mouth False Melatonin 3 mg tablet [generic] 3 mg By Mouth Once daily As Needed For INSOMNIA 3 mg 12/20 Inactiv e 2023 44568 83123 8 Once daily By Mouth False Hydrocortis one 1 % topical cream [generic] 1 % Rectal Four times daily as needed For hemorroid pain 1 % 12/20 Inactiv e 2023 51501 79176 1 Four times daily as needed Rectal False X-STGH ANTACID 750MG CHEW TAKE (1) TABLET BY MOUTH THREE TIMES DAILY NEEDED FOR INDIGESTION 12/20 Inactiv e 2023 11169 95436 4 Three times daily as needed Saline Mist 0.65 % nasal spray aerosol 0.65 % Nares Four times daily as needed For DRYNESS 0.65 % 12/20 Inactiv e 2023 36298 13151 8 Four times daily as needed Nares False Vicks Vaporub 4.7 %-1.2 %-2.6 % topical ointment Apply topically to chest Three times daily as needed For CONGESTION 4.7-1.2 -2.6 12/20 Inactiv e 2023 11247 31497 1 Three times daily as needed Topica l False VITAMIN D3 2000U CAP TAKE ONE (1) CAPSULE BY MOUTH DAILY* DO NOT CRUSH, CHEW OR BREAK* For Supplement 1 capsule 12/19 Inactiv e 2023 40352 38486 0 Once daily By Mouth False Potassium chloride ER 20 mEq tablet,exte nded release(par t/cryst) [generic] TAKE (1) TABLET BY MOUTH THREE TIMES DAILY (MORNING, AFTERNOON, EVENING)*DO NOT CRUSH, CHEW, OR BREAK* For SUPPLEMENT 20 MEQ 06/11 Inactiv e 2023 89043 45750 5 3 times a day By Mouth False Aspirin 81 mg tablet,camron yed release [generic] TAKE ONE (1) TABLET BY MOUTH ONCE DAILY*DO NOT CRUSH, CHEW OR BREAK* For CAD 81 MG 12/22 Inactiv e 2023 29390 37032 0 Once daily By Mouth False Furosemide 20 mg tablet [generic] TAKE 1 AND 1/2 TABLETS (30MG) BY MOUTH ONCE DAILY For CHF 30mg 2023 Active 2023 19986 80378 1 Once daily By Mouth False Polyethylen e glycol 3350 17 gram/dose oral powder [generic] MIX 17 GRAMS (1 CAPFUL) IN 60Z OF LIQUID AND DRINK BY MOUTH ONCE DAILY *HOLD FOR LOOSE STOOLS* For constipation 17 g 2023 Active 2023 86724 01080 3 Once daily By Mouth False Vitamin D3 50 mcg (2,000 unit) capsule Once daily TAKE ONE (1) CAPSULE BY MOUTH DAILY* DO NOT CRUSH, CHEW OR BREAK* For Supplement 1 capsule 02/07 Inactiv e 2023 04766 46504 2 Once daily By Mouth False Fleet Enema 19 gram-7 gram/118 mL 1 Rectal Daily as neededFor Constipation 1 2023 0000 Active 2023 25949 36904 6 Daily as needed Rectal False Tums E-X 300 mg (as calcium carbonate 750 mg) chewable tablet 1 tab By Mouth TAKE (1) TABLET BY MOUTH THREE TIMES DAILY NEEDED FOR INDIGESTION 1 tab 202300 /0000 Active 2023 74970 58264 1 Three times daily as needed By Mouth False Tylenol 325 mg tablet 2 tabs By Mouth Every 4 hours as needed For Fever >100 DO NOT EXCEED 3000 MG APAP/24 Hours 2 tabs 202300 /0000 Active 2023 97974 80266 0 Every 4 hours as needed By Mouth False Vicks Vaporub 4.7 %-1.2 %-2.6 % topical ointment Apply topically to chest Three times daily as needed For CONGESTION topical 202300 Active 2023 29388 64513 1 Three times daily as needed Topica l False Tylenol 325 mg tablet 2 tabs By Mouth Every 4 hours as needed For DX- PAIN PRN FOR MILD PAIN, DO NOT EXCEED 3000MG APAP/24 HOURS 2 tabs 202300 Active 2023 31888 47989 0 Every 4 hours as needed By Mouth False Tramadol 50 mg tablet [generic] 1 tab By Mouth Every 4 hours as needed For DX- PAIN 5-10 1 tab 03/10 Inactiv e 2023 29769 33346 0 Every 4 hours as needed By Mouth False Saline Mist 0.65 % nasal spray aerosol 2 sprays Nares Four times daily as needed For DRYNESS 2 sprays 202300 / Active 2023 94797 89531 8 Four times daily as needed Nares False Dulcolax (bisacodyl) 10 mg rectal suppository Daily as needed For Constipation 1 sup 202300 / Active 2023 50629 92718 1 Daily as needed Rectal False Hydrocortis one-pramoxi ne 1 %-1 % rectal cream [generic] 1 mague Rectal Four times daily as needed For hemorroid pain 1 mague 202300 /0000 Active 2023 96228 99927 4 Four times daily as needed Rectal False Melatonin 3 mg tablet [generic] 1 tab By Mouth At bedtime as needed For INSOMNIA 1 tab 12/24 Inactiv e 2023 10077 81345 8 At bedtime as needed By Mouth False Milk of Magnesia 400 mg/5 mL oral suspension 30ml By Mouth Daily as needed Daily as needed for constipation one time daily if no BM, on day 4 of no BM (PRN refer to instructions) For Constipation For Constipatioin 30ml 2023 Active 2023 56559 36410 2 Daily as needed By Mouth False Baclofen 20 mg tablet [generic] 20 mg By Mouth 4 times a day For MUSCLE SPASMS 20 mg 2023 Active 2023 98600 51331 1 4 times a day By Mouth False Melatonin 3 mg tablet [generic] 1 tab By Mouth At bedtime as needed For INSOMNIA 1 tab 2023 Active 2023 20058 42344 8 At bedtime as needed By Mouth False Bactrim DS 800 mg-160 mg tablet 1 tab By Mouth Twice daily For URINARY TRACT INFECTION, SITE NOT SPECIFIED 1 tab 01/06 Inactiv e 2023 08412 16989 1 Twice daily By Mouth N39.0 False Cefdinir 300 mg capsule [generic] 300 mg By Mouth Twice daily For UTI 300 mg 01/07 Inactiv e 2023 40970 77539 0 Twice daily By Mouth False Cefdinir 300 mg capsule [generic] 300 mg By Mouth Twice daily For UTI 300 mg 01/17 Inactiv e 2023 91528 31412 0 Twice daily By Mouth False Zyrtec 10 mg tablet 10 mg By Mouth Once daily For sinus congestion 10 mg 01/22 Inactiv e 2023 28650 57139 0 Once daily By Mouth False Tobramycin 0.3 %-dexametha sone 0.1 % eye drops,suspe nsion [generic] 0.3-0.1 % Left Eye 4 times a day For eye infection 0.3-0.1 % 02/05 Inactiv e 2023 42766 90842 5 4 times a day Left Eye False Fluconazole 150 mg tablet [generic] 150 mg By Mouth 1 time For yeast infection 150 mg 02/15 Inactiv e 2023 81805 04094 2 1 time By Mouth False Tramadol 50 mg tablet [generic] 1 tab By Mouth Every 4 hours as needed For DX- PAIN 5-10 1 tab 2023 00/00 /0000 Active 2023 17562 05403 0 Every 4 hours as needed By Mouth False Tobramycin 0.3 %-dexametha sone 0.1 % eye drops,suspe nsion [generic] 1 drop Left Eye 4 times a day For Inflammation of left eye 1 drop 05/08 Inactiv e 2023 59567 15956 5 4 times a day Left Eye False Voltaren Arthritis Pain 1 % topical gel 2 gm Topical Twice daily to rigth shoulder for 2 weeks For pain 2 gm 05/08 Inactiv e 2023 67310 04732 1 Twice daily Topica l False Chlorthalid one 25 mg tablet [generic] 12.5mg By Mouth Once daily For HTN 12.5mg 05/06 Inactiv e 2023 16026 45548 0 Once daily By Mouth False Chlorthalid one 25 mg tablet [generic] 12.5mg By Mouth Once daily For HTN 12.5mg 05/07 Inactiv e 2023 67253 13288 0 Once daily By Mouth False Chlorthalid one 25 mg tablet [generic] 05/07 Inactiv e 2023 54114 74106 0 Chlorthalid one 25 mg tablet [generic] 12.5mg By Mouth Once daily For HTN 12.5mg 06/26 Inactiv e 2023 65240 39809 0 Once daily By Mouth False Norvasc 5 mg tablet 5mg By Mouth Once daily, hold medication if systolic is less than 90 For HYPERTENSIVE HEART DISEASE WITHOUT HEART FAILURE 5mg 06/03 Inactiv e 2023 91463 48394 1 Once daily By Mouth I11.9 False Norvasc 5 mg tablet 5mg By Mouth Once daily, hold medication if systolic is less than 90 For HYPERTENSIVE HEART DISEASE WITHOUT HEART FAILURE 5mg 06/03 Inactiv e 2023 65580 22110 1 Once daily By Mouth I11.9 False Norvasc 5 mg tablet 5mg By Mouth Once daily, hold medication if systolic is less than 90 For HYPERTENSIVE HEART DISEASE WITHOUT HEART FAILURE 5mg 06/26 Inactiv e 2023 38867 27704 1 Once daily By Mouth I11.9 False [...] 10 mg 2023 00/00 /0000 Active 2023 74431 21887 1 Once daily By Mouth False DISCONTINUE [...] CAD 81 mg 06/14 Inactiv e 2023 04242 88980 9 Once daily By Mouth False Aspirin 81 mg tablet,camron yed release [generic] 06/14 Inactiv e 2023 88125 07060 9 Aspirin 81 mg tablet,camron yed release [generic] 81 mg By Mouth Once daily Do not crush, chew, or break For CAD 81 mg 06/154 Inactiv e 2023 88446 36543 9 Once daily By Mouth False Cefpodoxime 200 mg tablet [generic] 200mg By Mouth Twice daily For UTI 200mg 07/04 Inactiv e 2023 50258 60715 0 Twice daily By Mouth False Calcium citrate 250 mg tablet [generic] 06/26 Inactiv e 2023 89127 07990 6 Calcium citrate 250 mg tablet [generic] Once daily TAKE 4 TABLETS (1000MG) BY MOUTH For SUPPLEMENT 500 MG 2023 Active 2023 43883 06893 6 Once daily By Mouth False Norvasc 5 mg tablet 7.5 mg By Mouth Once daily Hold medication if SBP <90 For HYPERTENSIVE HEART DISEASE WITHOUT HEART FAILURE 7.5 mg 06/30 Inactiv e 2023 24029 31517 1 Once daily By Mouth I11.9 False Norvasc 5 mg tablet 7.5 mg By Mouth Once daily Hold medication if SBP <90 For HYPERTENSIVE HEART DISEASE WITHOUT HEART FAILURE 7.5 mg 07/06 Inactiv e 2023 78913 67826 1 Once daily By Mouth I11.9 False Simethicone 125 mg capsule [generic] 2 capule By Mouth Twice daily as needed For bloating/gas pain 2 capule 2023 Active 2023 55093 66553 0 Twice daily as needed By Mouth False Cepacol Sore Throat (benzocaine -menthol) 15 mg-2.6 mg lozenges 2 lozenges By Mouth Every 6 hours as needed For sore throat 2 lozenge s 2023 Active 2023 11336 16288 6 Every 6 hours as needed By Mouth False Cefepime 1 gram solution for injection [generic] 1g Intramuscular Every 12 hours 1g intramuscular ly ever 12 hours For UTI 1g 07/06 Inactiv e 2023 41528 41337 4 Every 12 hours Intram uscula r False Cefepime 1 gram solution for injection [generic] 07/06 Inactiv e 2023 80138 25168 4 Cefepime 1 gram solution for injection [generic] 1g Intramuscular Every 12 hours 1g intramuscular ly ever 12 hours For UTI Reconstitute with 2.4 ML of NSS. 1g 07/08 Inactiv e 2023 41701 12442 4 Every 12 hours Intram uscula r False Norvasc 5 mg tablet 07/06 Inactiv e 2023 59871 69346 1 I11.9 Norvasc 5 mg tablet 7.5 mg By Mouth Once daily Hold medication if SBP <90 For HYPERTENSIVE HEART DISEASE WITHOUT HEART FAILURE 7.5 mg 07/18 Inactiv e 2023 04631 48355 1 Once daily By Mouth I11.9 False Cefepime 1 gram solution for injection [generic] 07/08 Inactiv e 2023 93230 61690 4 Cefepime 1 gram solution for injection [generic] 1g Intramuscular Every 12 hours 1g intramuscular ly ever 12 hours For UTI Reconstitute with 2.4 ML of NSS. 1g 07/08 Inactiv e 2023 01022 41695 4 Every 12 hours Intram uscula r False Cefepime 1 gram solution for injection [generic] 07/08 Inactiv e 2023 36631 22390 4 Cefepime 1 gram solution for injection [generic] 1g Intramuscular Every 12 hours 1g intramuscular ly ever 12 hours For UTI Reconstitute with 2.4 ML of NSS. 1g 07/11 Inactiv e 2023 44467 90302 4 Every 12 hours Intram uscula r False Fleet Enema 19 gram-7 gram/118 mL 1 Rectal 1 time For constipation 1 07/16 Inactiv e 2024 87028 92200 6 1 time Rectal False Fleet Enema 19 gram-7 gram/118 mL 1 Rectal 1 time For constipation 1 07/17 Inactiv e 2024 78448 93898 6 1 time Rectal False Norvasc 5 mg tablet 7.5 mg By Mouth Once daily For HYPERTENSIVE HEART DISEASE WITHOUT HEART FAILURE 7.5 mg 2024 00/00 /0000 Active 2024 00125 92960 1 Once daily By Mouth I11.9 False Potassium chloride ER 20 mEq tablet,exte nded release(par t/cryst) [generic] 40 mEq By Mouth 1 time For low potassium prior to surgery 40 mEq 07/18 Inactiv e 2024 88566 85747 1 1 time By Mouth False Potassium chloride ER 20 mEq tablet,exte nded release(par t/cryst) [generic] 40 mEq By Mouth 1 time For low potassium prior to surgery 40 mEq 07/18 Inactiv e 2024 40454 81745 1 1 time By Mouth False Potassium chloride ER 20 mEq tablet,exte nded release(par t/cryst) [generic] 40 mEq By Mouth 1 time For low potassium 40 mEq 07/18 Inactiv e 2024 76528 84808 1 1 time By Mouth False Potassium chloride ER 20 mEq tablet,exte nded release(par t/cryst) [generic] 40 mEq By Mouth 1 time For low potassium 40 mEq 07/18 Inactiv e 2024 56895 62152 1 1 time By Mouth False Potassium chloride ER 20 mEq tablet,exte nded release [generic] 2 By Mouth 1 time For low potassium 2 07/19 Inactiv e 2024 34411 90581 1 1 time By Mouth False Potassium chloride ER 20 mEq tablet,exte nded release [generic] 2 capsules capsules By Mouth 1 time Please send capsule (2 capsules) For low potassium 2 capsule s 07/20 Inactiv e 2024 83736 08108 1 1 time By Mouth False Potassium chloride ER 20 mEq tablet,exte nded release(par t/cryst) [generic] TAKE (2) TABLETS (40MEQ) BY MOUTH X1 DOSE 07/20 Inactiv e 2024 77965 28247 5 Cefepime 1 gram solution for injection [generic] 1 gram Intramuscular Every 12 hours For Urinary Tract Infection 1 gram 07/21 Inactiv e 2024 45173 59538 4 Every 12 hours Intram uscula r False Cefepime 1 gram solution for injection [generic] 07/21 Inactiv e 2024 74767 54008 4 Cefepime 1 gram solution for injection [generic] 1 gram Intramuscular Every 12 hours For Urinary Tract Infection 1 gram 08/04 Active 2024 48633 55406 4 Every 12 hours Intram uscula r False Nystatin 100,000 unit/gram topical cream [generic] 100,000 unit Topical As Needed For DX- EXCORIATION 100,000 unit 12/12 Inactiv e 2023 95512 90823 5 Topica l False Vicks Vaporub 4.7 %-1.2 %-2.6 % topical ointment 4.7-1.2-2.6 Topical 3 times a day As Needed For DX- CONGESTION 4.7-1.2 -2.6 12/12 Inactiv e 2023 87711 24514 1 3 times a day Topica l False Ketoconazol e 2 % shampoo [generic] APPLY SHAMPOO TOPICALLY TO SCALP DURING HAIR WASHINGDX: ELVIA DERM OF SCALP For DX- ELVIA DERM OF SCALP 12/12 Inactiv e 2023 09722 96803 4 Topica l False THERA SILICONE SKIN GUARD Topical Twice daily 1 APPLICATION TOPICALLY IN THE MORNING AND AT BEDTIME TO SCROTUM For DX- PREVENTION 2023 00/00 / Active 2023 Twice daily Topica l False Selenium sulfide 2.5 % lotion [generic] 2.5 % Topical EVERY MONDAY, MONDAY AND MONDAY AFTER SHOWER For DANDRUFF 2.5 % 2023 00/00 / Active 2023 53089 01120 4 3 times a week Topica l False Nystatin (bulk) 100 million unit powder [generic] 100 million Topical Twice daily as needed For EXOCORATION 100 million 12/20 Inactiv e 2023 99099 42509 1 Twice daily as needed Topica l False Ketoconazol e 2 % shampoo [generic] Once daily APPLY SHAMPOO TOPICALLY TO SCALP DURING HAIR WASHING ON SHOWER DAYS- JOSHMICHELLELITTLE, SAT For ELVIA DERM OF SCAP 2 % 2023 Active 2023 80857 07104 4 Once daily Topica l False Nystatin 100,000 unit/gram topical cream [generic] 1 mague Topical Twice daily as needed For EXOCORATION 1 mague 06/05 Inactiv e 2023 95286 92138 5 Twice daily as needed Topica l False Nystatin 100,000 unit/gram topical powder [generic] 100,000 unit Topical Twice daily to scrotum with AM and PM care For Scrotal excoriation 100,000 unit 06/05 Inactiv e 2023 27820 37934 5 Twice daily Topica l False Problems [...] adjustment of urinary device 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 07/21 Active N31.9 [...] weight Temperature SpO2 Blood Sugar Pulse Respirations 48680 216 18728 1 254[place]10 [place] [address] 216 72391 2 79.00 mm[Hg] - Sitting 157.00 mm[Hg] - Sitting 73 NI 254.10 NI 36.30 Tympanic 95.00 % 72.00/ min 16.00/min 50624 216 70550 4 98.80 Tympanic 45175 216 29013 2 78.00 mm[Hg] - Sitting 164.00 mm[Hg] - Sitting 09357 217 52401 3 98.20 Tympanic 30094 217 42349 5 73.00 mm[Hg] - Sitting 159.00 mm[Hg] - Sitting 23534 217 87683 9 98.40 Forehead Scan 05728 218 45772 3 97.90 Tympanic 12227 218 58594 5 77.00 mm[Hg] - Sitting 137.00 mm[Hg] - Sitting 07813 219 90080 0 97.70 Tympanic 96120 219 78921 6 97.60 Tympanic 59209 219 69703 4 76.00 mm[Hg] - Sitting 139.00 mm[Hg] - Sitting 45535 219 81448 4 97.80 Forehead Scan 17728 220 25336 9 97.90 Tympanic 46476 220 10194 9 76.00 mm[Hg] - Sitting 138.00 mm[Hg] - Sitting 87862 220 59809 6 98.10 Tympanic 86769 221 32712 5 67.00 mm[Hg] - Sitting 142.00 mm[Hg] - Sitting 52656 221 33686 8 98.20 Tympanic 95095 221 48461 0 98.30 Tympanic 74647 222 65486 7 98.20 Tympanic 55146 222 70982 8 97.90 Tympanic 70666 223 84769 3 98.20 Tympanic 42761 223 10537 3 98.00 Tympanic 48657 224 10519 0 59.00 mm[Hg] - Sitting 111.00 mm[Hg] - Sitting 98.40 Forehead Scan 95.00 % 56.00/ min 18.00/min 47292 224 13726 9 98.20 Forehead Scan 28309 224 95633 3 97.90 Tympanic 69578 225 57598 4 98.20 Tympanic 97307 225 43045 8 97.50 Forehead Scan 91751 228 02149 0 55.00 mm[Hg] - Sitting 118.00 mm[Hg] - Sitting 98.40 Tympanic 69.00/ min 99701 229 43044 8 78.00 mm[Hg] - Sitting 152.00 mm[Hg] - Sitting 05548 230 56641 0 62.00 mm[Hg] - Sitting 122.00 mm[Hg] - Sitting 48508 231 22261 7 72.00 mm[Hg] - Lying Down 140.00 mm[Hg] - Lying Down 17113 101 82130 3 97.70 Forehead Scan 58581 101 10792 1 254.10 NI 69.00/ min 17936 101 20154 9 72.00 mm[Hg] - Sitting 142.00 mm[Hg] - Sitting 97.70 Tympanic 18.00/min 74949 101 74272 3 72.00 mm[Hg] - Lying Down 142.00 mm[Hg] - Lying Down 58326 102 67501 8 68.00 mm[Hg] - Lying Down 152.00 mm[Hg] - Lying Down 31684 103 09427 5 74.00 mm[Hg] - Sitting 158.00 mm[Hg] - Sitting 25696 104 49307 9 78.00 mm[Hg] - Sitting 144.00 mm[Hg] - Sitting 07926 105 91839 5 68.00 mm[Hg] - Sitting 138.00 mm[Hg] - Sitting 02259 106 96199 1 70.00 mm[Hg] - Sitting 138.00 mm[Hg] - Sitting 83882 107 41775 1 67.00 mm[Hg] - Sitting 142.00 mm[Hg] - Sitting 02324 108 49884 0 74.00 mm[Hg] - Sitting 143.00 mm[Hg] - Sitting 71266 110 31204 6 85.00 mm[Hg] - Sitting 160.00 mm[Hg] - Sitting 97.80 Tympanic 93.00 % 76.00/ min 18.00/min 43694 111 36960 1 83.00 mm[Hg] - Sitting 129.00 mm[Hg] - Sitting 98.60 Tympanic 92.00 % 71.00/ min 18.00/min 69013 111 76964 5 60.00 mm[Hg] - Sitting 114.00 mm[Hg] - Sitting 98.70 Tympanic 92.00 % 76.00/ min 18.00/min 81938 112 45101 4 55.00 mm[Hg] - Sitting 125.00 mm[Hg] - Sitting 98.60 Tympanic 91.00 % 68.00/ min 18.00/min 40562 112 56309 9 75.00 mm[Hg] - Sitting 174.00 mm[Hg] - Sitting 97.70 Tympanic 96.00 % 71.00/ min 18.00/min Immunizations Vaccine Date [...]
--- OUTSIDE RECORDS SUMMARY | 2024-07-26 11:13 | External Medical Summary | Continuity Of Care Document ---
Author Name Unknown Address [address] [place] [address] Organization [facility] () Care Team Providers Care Hydrostatic Tubing Tester Name Role Phone DO Pritchett Amy Primary Care Provider [phone] Allergies Allergy Reaction Start Date End Date Status AMINOGLYCOSIDES Active CIPRO Active GENTAMICIN Active NSAIDS (NON-STEROIDAL ANTI-INFLAMMATORY DRUG) 0 Active IBUPROFEN Active QUINOLONES Active VALIUM Active Medications Medication Instructions Dosage Start Date End Date Status Order Date Drug Code Frequency Route of Admin Diagnosis Code Substitutions Allowed Spikevax [id number](1 2y up)(PF) 50 mcg/0.5 mL intramuscul ar suspension [COVID [id number](12 up)(andu)(P F)] 0.5mL Intramuscular 1 time Monitory 15 Minutes post injection for adverse effects; record site/temp For COVID 19 PREVENTION 0.5mL 01/02 Inactiv e 2023 36636 29215 4 1 time Intram uscula r False [facility] - Nurse initials indicate verificatio n that [id number] vaccine was administere d by [facility] Representat jon 1 Intramuscular 1 time ( Indicate vaccine type) For vaccine 1 05/03 Inactiv e 2023 1 time Intram uscula r False Lisinopril 40 mg tablet [generic] TAKE ONE (1) TABLET BY MOUTH IN THE MORNING. For DX- HTN 1 2023 Active 2023 72470 29185 1 Once daily By Mouth False Tizanidine 2 mg tablet [generic] TAKE ONE (1) TABLET BY MOUTH ONCE DAILY For MUSCLE SPASM 1 2023 Active 2023 36820 81929 0 Once daily By Mouth M62.838 False Tamsulosin 0.4 mg capsule [generic] TAKE (1) CAPSULE BY MOUTH AT BEDTIME For SPASMS 1 2023 Active 2023 32212 98126 0 Once daily By Mouth False Aspirin 81 mg tablet Once daily 1 TABLET BY MOUTH IN THE MORNING For DX- CAD DO NOT CRUSH, CHEW OR BREAK 81 mg 06/12 Inactiv e 2023 Once daily By Mouth False Baclofen 20 mg tablet [generic] 20 mg By Mouth 4 times a day For DX- MUSCLE SPASMS 20 mg 12/12 Inactiv e 2023 92368 86249 1 4 times a day By Mouth False Calcium citrate 250 mg tablet Once daily 4 TABLET BY MOUTH For DX- SUPPLEMENT 250 mg calci 12/12 Inactiv e 2023 Once daily By Mouth False Co Q-10 100 mg capsule 100 mg By Mouth Once daily For DX- SUPPLEMENT 100 mg 06/20 Inactiv e 2023 30086 77625 5 Once daily By Mouth False Furosemide 20 mg tablet [generic] 20 mg By Mouth Once daily For DX-CHF 20 mg 12/12 Inactiv e 2023 06046 21539 0 Once daily By Mouth False Gabapentin 300 mg capsule [generic] 300 mg By Mouth 3 times a day For DX- NEUROPATHY 300 mg 12/12 Inactiv e 2023 87827 17639 4 3 times a day By Mouth False Loratadine 10 mg tablet [generic] 10 mg By Mouth Once daily For DX- ALLERGIES 10 mg 2023 Active 2023 11227 91618 1 Once daily By Mouth False Miralax 17 gram/dose oral powder 17 gram/dose By Mouth IN THE MORNING Mix 1 TABLESPOON IN 8 OZ OF FLUID HOLD FOR LOOSE STOOLS For DX- CONSTIPATION 17 gram/do se 12/12 Inactiv e 2023 05568 67931 0 Once daily By Mouth False Paroxetine 30 mg tablet [generic] 30 mg By Mouth Once daily For DX- DEPRESSION 30 mg 2023 00/00 /0000 Active 2023 71311 71641 3 Once daily By Mouth False Potassium citrate ER 15 mEq (1,620 mg) tablet,exte nded release [generic] 15 mEq By Mouth 3 times a day For DX- SUPPLEMENT/DI URETIC USE/ HYPOCITRAUIRA DO NOT CRUSH 15 mEq 12/12 Inactiv e 2023 72537 03540 1 3 times a day By Mouth [...] For DX- DANDRUFF 12/12 Inactiv e 2023 47110 60308 4 3 times a week Topica l False Acetaminoph en 325 mg tablet [generic] TAKE 2 TABS (650MG) BY MOUTH EVERY 4 HOURS NEEDED FOR TEMP >100 NOT TO EXCEED 3GM/24HRS TAKE 2 TABS (650MG) BY MOUTH EVERY 4 HOURS NEEDED FOR TEMP >100 NOT TO EXCEED 3GM/24HRS For DX-FEVER 2 12/12 Inactiv e 2023 56960 96624 0 By Mouth False MILK OF MAGNESIA ADMINISTER 30 ML BY MOUTH ONCE DAILY NEEDED FOR CONSTIPATION X3 DAYS WITH NO BM. For DX- CONSTIPATION 30ML 12/12 Inactiv e 2023 47152 71551 9 By Mouth False Enema Disposable 19 gram-7 gram/118 mL ADMINISTER ONE ENEMA RECTALLY ONCE DAILY NEEDED FOR CONSTIPATION ON DAY 6 OF NO BM For DX- CONSTIPATION 12/12 Inactiv e 2023 56488 36879 1 Rectal False TUMS EXTRA STR 750MG TAKE (1) TABLET BY MOUTH THREE TIMES DAILY NEEDED FOR INDIGESTION For DX- INDIGESTION 1 12/12 Inactiv e 2023 15131 19465 8 By Mouth False Vitamin D3 25 [...] CONSTIPATION 10 mg 12/12 Inactiv e 2023 27384 67382 1 Rectal False Melatonin 3 mg tablet [generic] 3 mg By Mouth As Needed For DX-INSOMMIA 3 mg 12/12 Inactiv e 2023 56860 55368 8 By Mouth False Hydrocortis one 1 % topical cream [generic] 1 % Topical As Needed For DX- PAIN 1 % 12/12 Inactiv e 2023 96993 75164 1 Topica l False HYDROCORTIS ONE/PARMOXI NE [...] 5-10 50 mg 12/20 Inactiv e 2023 31339 80878 0 Every 4 hours as needed By Mouth False Tylenol 325 mg tablet 325 mg By Mouth Every 4 hours as needed For DX- PAIN PRN FOR MILD PAIN, DO NOT EXCEED 3000MG APAP/24 HOURS 325 mg 12/20 Inactiv e 2023 78650 34000 0 Every 4 hours as needed By Mouth False Baclofen 20 mg tablet [generic] 20 mg By Mouth 4 times a day For MUSCLE SPASMS 20 mg 12/20 Inactiv e 2023 75062 43066 1 4 times a day By Mouth False Calcium citrate 250 mg tablet [generic] Once daily TAKE 4 TABLETS (1000MG) BY MOUTH For SUPPLEMENT 1000 MG 06/26 Inactiv e 2023 25014 95881 6 Once daily By Mouth False Dulcolax (bisacodyl) 10 mg rectal suppository 10 mg Rectal Once daily For CONSTIPATION *MAY HOLD FOR LOOSE STOOLS* 10 mg 2023 Active 2023 51930 06461 1 Once daily Rectal False Gabapentin 300 mg capsule [generic] 300 mg By Mouth 3 times a day For NEUROPATHY 300 mg 2023 Active 2023 94252 21350 4 3 times a day By Mouth False Potassium citrate ER 15 mEq (1,620 mg) tablet,exte nded release [generic] 15 mEq By Mouth 3 times a day For SUPPLEMENT/DI URETIC USE/HYPOCITRA URIA 15 mEq 06/11 Inactiv e 2023 71587 98006 1 3 times a day By Mouth False Potassium chloride ER 20 mEq tablet,exte nded release [generic] 20 mEq By Mouth 3 times a day *DO NOT CRUSH, CHEW OR BREAK* For SUPPLEMENT 20 mEq 12/18 Inactiv e 2023 74875 46476 1 3 times a day By Mouth False Tizanidine 4 mg tablet [generic] 4 mg By Mouth Once daily For MUSCLE SPASMS 4 mg 2023 Active 2023 08311 35881 0 Once daily By Mouth False Tylenol 325 mg tablet 2 tabs By Mouth Every 4 hours as needed For Fever >100 DO NOT EXCEED 3000 MG APAP/24 Hours 2 tabs 12/20 Inactiv e 2023 45169 49452 0 Every 4 hours as needed By Mouth False Dulcolax (bisacodyl) 10 mg rectal suppository Daily as needed For Constipation 1 sup 12/20 Inactiv e 2023 98649 47500 1 Daily as needed Rectal False Fleet Enema 19 gram-7 gram/118 mL 1 Rectal Daily as neededFor Constipation 1 12/20 Inactiv e 2023 16983 59620 6 Daily as needed Rectal False Milk of Magnesia 400 mg/5 mL oral suspension [Magnesium hydroxide] PRN 30ml By Mouth Daily as needed for constipation one time daily if no BM, on day 4 of no BM (PRN refer to instructions) For Constipation For Constipatioin 30ml 12/20 Inactiv e 2023 60257 82591 6 1 time By Mouth False Melatonin 3 mg tablet [generic] 3 mg By Mouth Once daily As Needed For INSOMNIA 3 mg 12/20 Inactiv e 2023 56980 79909 8 Once daily By Mouth False Hydrocortis one 1 % topical cream [generic] 1 % Rectal Four times daily as needed For hemorroid pain 1 % 12/20 Inactiv e 2023 86894 70633 1 Four times daily as needed Rectal False X-STGH ANTACID 750MG CHEW TAKE (1) TABLET BY MOUTH THREE TIMES DAILY NEEDED FOR INDIGESTION 12/20 Inactiv e 2023 38997 76310 4 Three times daily as needed Saline Mist 0.65 % nasal spray aerosol 0.65 % Nares Four times daily as needed For DRYNESS 0.65 % 12/20 Inactiv e 2023 28087 66699 8 Four times daily as needed Nares False Vicks Vaporub 4.7 %-1.2 %-2.6 % topical ointment Apply topically to chest Three times daily as needed For CONGESTION 4.7-1.2 -2.6 12/20 Inactiv e 2023 18433 16263 1 Three times daily as needed Topica l False VITAMIN D3 2000U CAP TAKE ONE (1) CAPSULE BY MOUTH DAILY* DO NOT CRUSH, CHEW OR BREAK* For Supplement 1 capsule 12/19 Inactiv e 2023 66998 88265 0 Once daily By Mouth False Potassium chloride ER 20 mEq tablet,exte nded release(par t/cryst) [generic] TAKE (1) TABLET BY MOUTH THREE TIMES DAILY (MORNING, AFTERNOON, EVENING)*DO NOT CRUSH, CHEW, OR BREAK* For SUPPLEMENT 20 MEQ 06/11 Inactiv e 2023 24233 04336 5 3 times a day By Mouth False Aspirin 81 mg tablet,camron yed release [generic] TAKE ONE (1) TABLET BY MOUTH ONCE DAILY*DO NOT CRUSH, CHEW OR BREAK* For CAD 81 MG 12/22 Inactiv e 2023 92468 19094 0 Once daily By Mouth False Furosemide 20 mg tablet [generic] TAKE 1 AND 1/2 TABLETS (30MG) BY MOUTH ONCE DAILY For CHF 30mg 2023 Active 2023 82781 34043 1 Once daily By Mouth False Polyethylen e glycol 3350 17 gram/dose oral powder [generic] MIX 17 GRAMS (1 CAPFUL) IN 60Z OF LIQUID AND DRINK BY MOUTH ONCE DAILY *HOLD FOR LOOSE STOOLS* For constipation 17 g 2023 Active 2023 69934 72430 3 Once daily By Mouth False Vitamin D3 50 mcg (2,000 unit) capsule Once daily TAKE ONE (1) CAPSULE BY MOUTH DAILY* DO NOT CRUSH, CHEW OR BREAK* For Supplement 1 capsule 02/07 Inactiv e 2023 30928 23821 2 Once daily By Mouth False Fleet Enema 19 gram-7 gram/118 mL 1 Rectal Daily as neededFor Constipation 1 2023 0000 Active 2023 14570 98033 6 Daily as needed Rectal False Tums E-X 300 mg (as calcium carbonate 750 mg) chewable tablet 1 tab By Mouth TAKE (1) TABLET BY MOUTH THREE TIMES DAILY NEEDED FOR INDIGESTION 1 tab 202300 /0000 Active 2023 17444 81713 1 Three times daily as needed By Mouth False Tylenol 325 mg tablet 2 tabs By Mouth Every 4 hours as needed For Fever >100 DO NOT EXCEED 3000 MG APAP/24 Hours 2 tabs 202300 /0000 Active 2023 01609 70372 0 Every 4 hours as needed By Mouth False Vicks Vaporub 4.7 %-1.2 %-2.6 % topical ointment Apply topically to chest Three times daily as needed For CONGESTION topical 202300 Active 2023 40937 51649 1 Three times daily as needed Topica l False Tylenol 325 mg tablet 2 tabs By Mouth Every 4 hours as needed For DX- PAIN PRN FOR MILD PAIN, DO NOT EXCEED 3000MG APAP/24 HOURS 2 tabs 202300 Active 2023 02557 48866 0 Every 4 hours as needed By Mouth False Tramadol 50 mg tablet [generic] 1 tab By Mouth Every 4 hours as needed For DX- PAIN 5-10 1 tab 03/10 Inactiv e 2023 99120 46442 0 Every 4 hours as needed By Mouth False Saline Mist 0.65 % nasal spray aerosol 2 sprays Nares Four times daily as needed For DRYNESS 2 sprays 202300 / Active 2023 62759 50131 8 Four times daily as needed Nares False Dulcolax (bisacodyl) 10 mg rectal suppository Daily as needed For Constipation 1 sup 202300 / Active 2023 01646 48980 1 Daily as needed Rectal False Hydrocortis one-pramoxi ne 1 %-1 % rectal cream [generic] 1 mague Rectal Four times daily as needed For hemorroid pain 1 mague 202300 /0000 Active 2023 48536 99838 4 Four times daily as needed Rectal False Melatonin 3 mg tablet [generic] 1 tab By Mouth At bedtime as needed For INSOMNIA 1 tab 12/24 Inactiv e 2023 83539 51448 8 At bedtime as needed By Mouth False Milk of Magnesia 400 mg/5 mL oral suspension 30ml By Mouth Daily as needed Daily as needed for constipation one time daily if no BM, on day 4 of no BM (PRN refer to instructions) For Constipation For Constipatioin 30ml 2023 Active 2023 40047 51983 2 Daily as needed By Mouth False Baclofen 20 mg tablet [generic] 20 mg By Mouth 4 times a day For MUSCLE SPASMS 20 mg 2023 Active 2023 87492 12616 1 4 times a day By Mouth False Melatonin 3 mg tablet [generic] 1 tab By Mouth At bedtime as needed For INSOMNIA 1 tab 2023 Active 2023 39041 59448 8 At bedtime as needed By Mouth False Bactrim DS 800 mg-160 mg tablet 1 tab By Mouth Twice daily For URINARY TRACT INFECTION, SITE NOT SPECIFIED 1 tab 01/06 Inactiv e 2023 00921 48249 1 Twice daily By Mouth N39.0 False Cefdinir 300 mg capsule [generic] 300 mg By Mouth Twice daily For UTI 300 mg 01/07 Inactiv e 2023 51849 12464 0 Twice daily By Mouth False Cefdinir 300 mg capsule [generic] 300 mg By Mouth Twice daily For UTI 300 mg 01/17 Inactiv e 2023 81177 87158 0 Twice daily By Mouth False Zyrtec 10 mg tablet 10 mg By Mouth Once daily For sinus congestion 10 mg 01/22 Inactiv e 2023 90196 55575 0 Once daily By Mouth False Tobramycin 0.3 %-dexametha sone 0.1 % eye drops,suspe nsion [generic] 0.3-0.1 % Left Eye 4 times a day For eye infection 0.3-0.1 % 02/05 Inactiv e 2023 59748 22717 5 4 times a day Left Eye False Fluconazole 150 mg tablet [generic] 150 mg By Mouth 1 time For yeast infection 150 mg 02/15 Inactiv e 2023 58463 69956 2 1 time By Mouth False Tramadol 50 mg tablet [generic] 1 tab By Mouth Every 4 hours as needed For DX- PAIN 5-10 1 tab 2023 00/00 /0000 Active 2023 97340 25871 0 Every 4 hours as needed By Mouth False Tobramycin 0.3 %-dexametha sone 0.1 % eye drops,suspe nsion [generic] 1 drop Left Eye 4 times a day For Inflammation of left eye 1 drop 05/08 Inactiv e 2023 77446 14921 5 4 times a day Left Eye False Voltaren Arthritis Pain 1 % topical gel 2 gm Topical Twice daily to rigth shoulder for 2 weeks For pain 2 gm 05/08 Inactiv e 2023 87593 86538 1 Twice daily Topica l False Chlorthalid one 25 mg tablet [generic] 12.5mg By Mouth Once daily For HTN 12.5mg 05/06 Inactiv e 2023 33787 27040 0 Once daily By Mouth False Chlorthalid one 25 mg tablet [generic] 12.5mg By Mouth Once daily For HTN 12.5mg 05/07 Inactiv e 2023 58150 08029 0 Once daily By Mouth False Chlorthalid one 25 mg tablet [generic] 05/07 Inactiv e 2023 79813 29363 0 Chlorthalid one 25 mg tablet [generic] 12.5mg By Mouth Once daily For HTN 12.5mg 06/26 Inactiv e 2023 79858 33885 0 Once daily By Mouth False Norvasc 5 mg tablet 5mg By Mouth Once daily, hold medication if systolic is less than 90 For HYPERTENSIVE HEART DISEASE WITHOUT HEART FAILURE 5mg 06/03 Inactiv e 2023 87433 64893 1 Once daily By Mouth I11.9 False Norvasc 5 mg tablet 5mg By Mouth Once daily, hold medication if systolic is less than 90 For HYPERTENSIVE HEART DISEASE WITHOUT HEART FAILURE 5mg 06/03 Inactiv e 2023 04626 75233 1 Once daily By Mouth I11.9 False Norvasc 5 mg tablet 5mg By Mouth Once daily, hold medication if systolic is less than 90 For HYPERTENSIVE HEART DISEASE WITHOUT HEART FAILURE 5mg 06/26 Inactiv e 2023 48995 06112 1 Once daily By Mouth I11.9 False [...] 10 mg 2023 00/00 /0000 Active 2023 59316 81574 1 Once daily By Mouth False DISCONTINUE [...] CAD 81 mg 06/14 Inactiv e 2023 17359 35606 9 Once daily By Mouth False Aspirin 81 mg tablet,camron yed release [generic] 06/14 Inactiv e 2023 76606 94934 9 Aspirin 81 mg tablet,camron yed release [generic] 81 mg By Mouth Once daily Do not crush, chew, or break For CAD 81 mg 06/154 Inactiv e 2023 34035 81611 9 Once daily By Mouth False Cefpodoxime 200 mg tablet [generic] 200mg By Mouth Twice daily For UTI 200mg 07/04 Inactiv e 2023 20163 74471 0 Twice daily By Mouth False Calcium citrate 250 mg tablet [generic] 06/26 Inactiv e 2023 16436 89029 6 Calcium citrate 250 mg tablet [generic] Once daily TAKE 4 TABLETS (1000MG) BY MOUTH For SUPPLEMENT 500 MG 2023 Active 2023 32750 85653 6 Once daily By Mouth False Norvasc 5 mg tablet 7.5 mg By Mouth Once daily Hold medication if SBP <90 For HYPERTENSIVE HEART DISEASE WITHOUT HEART FAILURE 7.5 mg 06/30 Inactiv e 2023 25281 43691 1 Once daily By Mouth I11.9 False Norvasc 5 mg tablet 7.5 mg By Mouth Once daily Hold medication if SBP <90 For HYPERTENSIVE HEART DISEASE WITHOUT HEART FAILURE 7.5 mg 07/06 Inactiv e 2023 29417 08671 1 Once daily By Mouth I11.9 False Simethicone 125 mg capsule [generic] 2 capule By Mouth Twice daily as needed For bloating/gas pain 2 capule 2023 Active 2023 71040 21450 0 Twice daily as needed By Mouth False Cepacol Sore Throat (benzocaine -menthol) 15 mg-2.6 mg lozenges 2 lozenges By Mouth Every 6 hours as needed For sore throat 2 lozenge s 2023 Active 2023 98534 27113 6 Every 6 hours as needed By Mouth False Cefepime 1 gram solution for injection [generic] 1g Intramuscular Every 12 hours 1g intramuscular ly ever 12 hours For UTI 1g 07/06 Inactiv e 2023 85040 04342 4 Every 12 hours Intram uscula r False Cefepime 1 gram solution for injection [generic] 07/06 Inactiv e 2023 07070 50486 4 Cefepime 1 gram solution for injection [generic] 1g Intramuscular Every 12 hours 1g intramuscular ly ever 12 hours For UTI Reconstitute with 2.4 ML of NSS. 1g 07/08 Inactiv e 2023 38625 89325 4 Every 12 hours Intram uscula r False Norvasc 5 mg tablet 07/06 Inactiv e 2023 79679 73218 1 I11.9 Norvasc 5 mg tablet 7.5 mg By Mouth Once daily Hold medication if SBP <90 For HYPERTENSIVE HEART DISEASE WITHOUT HEART FAILURE 7.5 mg 07/18 Inactiv e 2023 54023 07554 1 Once daily By Mouth I11.9 False Cefepime 1 gram solution for injection [generic] 07/08 Inactiv e 2023 63750 72762 4 Cefepime 1 gram solution for injection [generic] 1g Intramuscular Every 12 hours 1g intramuscular ly ever 12 hours For UTI Reconstitute with 2.4 ML of NSS. 1g 07/08 Inactiv e 2023 96151 02556 4 Every 12 hours Intram uscula r False Cefepime 1 gram solution for injection [generic] 07/08 Inactiv e 2023 27734 72679 4 Cefepime 1 gram solution for injection [generic] 1g Intramuscular Every 12 hours 1g intramuscular ly ever 12 hours For UTI Reconstitute with 2.4 ML of NSS. 1g 07/11 Inactiv e 2023 18662 28444 4 Every 12 hours Intram uscula r False Fleet Enema 19 gram-7 gram/118 mL 1 Rectal 1 time For constipation 1 07/16 Inactiv e 2024 10776 79352 6 1 time Rectal False Fleet Enema 19 gram-7 gram/118 mL 1 Rectal 1 time For constipation 1 07/17 Inactiv e 2024 41497 24513 6 1 time Rectal False Norvasc 5 mg tablet 7.5 mg By Mouth Once daily For HYPERTENSIVE HEART DISEASE WITHOUT HEART FAILURE 7.5 mg 2024 00/00 /0000 Active 2024 44955 51375 1 Once daily By Mouth I11.9 False Potassium chloride ER 20 mEq tablet,exte nded release(par t/cryst) [generic] 40 mEq By Mouth 1 time For low potassium prior to surgery 40 mEq 07/18 Inactiv e 2024 29849 03811 1 1 time By Mouth False Potassium chloride ER 20 mEq tablet,exte nded release(par t/cryst) [generic] 40 mEq By Mouth 1 time For low potassium prior to surgery 40 mEq 07/18 Inactiv e 2024 03796 35747 1 1 time By Mouth False Potassium chloride ER 20 mEq tablet,exte nded release(par t/cryst) [generic] 40 mEq By Mouth 1 time For low potassium 40 mEq 07/18 Inactiv e 2024 54505 80564 1 1 time By Mouth False Potassium chloride ER 20 mEq tablet,exte nded release(par t/cryst) [generic] 40 mEq By Mouth 1 time For low potassium 40 mEq 07/18 Inactiv e 2024 58441 50407 1 1 time By Mouth False Potassium chloride ER 20 mEq tablet,exte nded release [generic] 2 By Mouth 1 time For low potassium 2 07/19 Inactiv e 2024 57849 12154 1 1 time By Mouth False Potassium chloride ER 20 mEq tablet,exte nded release [generic] 2 capsules capsules By Mouth 1 time Please send capsule (2 capsules) For low potassium 2 capsule s 07/20 Inactiv e 2024 18002 19012 1 1 time By Mouth False Potassium chloride ER 20 mEq tablet,exte nded release(par t/cryst) [generic] TAKE (2) TABLETS (40MEQ) BY MOUTH X1 DOSE 07/20 Inactiv e 2024 86447 66948 5 Cefepime 1 gram solution for injection [generic] 1 gram Intramuscular Every 12 hours For Urinary Tract Infection 1 gram 07/21 Inactiv e 2024 10414 70943 4 Every 12 hours Intram uscula r False Cefepime 1 gram solution for injection [generic] 07/21 Inactiv e 2024 47321 03332 4 Cefepime 1 gram solution for injection [generic] 1 gram Intramuscular Every 12 hours For Urinary Tract Infection 1 gram 08/04 Active 2024 01710 96442 4 Every 12 hours Intram uscula r False Nystatin 100,000 unit/gram topical cream [generic] 100,000 unit Topical As Needed For DX- EXCORIATION 100,000 unit 12/12 Inactiv e 2023 78766 59341 5 Topica l False Vicks Vaporub 4.7 %-1.2 %-2.6 % topical ointment 4.7-1.2-2.6 Topical 3 times a day As Needed For DX- CONGESTION 4.7-1.2 -2.6 12/12 Inactiv e 2023 38404 41402 1 3 times a day Topica l False Ketoconazol e 2 % shampoo [generic] APPLY SHAMPOO TOPICALLY TO SCALP DURING HAIR WASHINGDX: ELVIA DERM OF SCALP For DX- ELVIA DERM OF SCALP 12/12 Inactiv e 2023 76879 42784 4 Topica l False THERA SILICONE SKIN GUARD Topical Twice daily 1 APPLICATION TOPICALLY IN THE MORNING AND AT BEDTIME TO SCROTUM For DX- PREVENTION 2023 00/00 / Active 2023 Twice daily Topica l False Selenium sulfide 2.5 % lotion [generic] 2.5 % Topical EVERY MONDAY, MONDAY AND MONDAY AFTER SHOWER For DANDRUFF 2.5 % 2023 00/00 / Active 2023 18262 31253 4 3 times a week Topica l False Nystatin (bulk) 100 million unit powder [generic] 100 million Topical Twice daily as needed For EXOCORATION 100 million 12/20 Inactiv e 2023 43464 02073 1 Twice daily as needed Topica l False Ketoconazol e 2 % shampoo [generic] Once daily APPLY SHAMPOO TOPICALLY TO SCALP DURING HAIR WASHING ON SHOWER DAYS- JOSHMICHELLELITTLE, SAT For ELVIA DERM OF SCAP 2 % 2023 Active 2023 15262 02539 4 Once daily Topica l False Nystatin 100,000 unit/gram topical cream [generic] 1 mague Topical Twice daily as needed For EXOCORATION 1 mague 06/05 Inactiv e 2023 36930 61644 5 Twice daily as needed Topica l False Nystatin 100,000 unit/gram topical powder [generic] 100,000 unit Topical Twice daily to scrotum with AM and PM care For Scrotal excoriation 100,000 unit 06/05 Inactiv e 2023 13829 15821 5 Twice daily Topica l False Problems [...] adjustment of urinary device 07/21/2023 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 07/21 Active N31.9 [...] weight Temperature SpO2 Blood Sugar Pulse Respirations 63412 216 76582 1 254.10 [place] 20030 216 24188 2 79.00 mm[Hg] - Sitting 157.00 mm[Hg] - Sitting 73 NI 254.10 NI 36.30 Tympanic 95.00 % 72.00/ min 16.00/min 13617 216 72814 4 98.80 Tympanic 84081 216 49508 2 78.00 mm[Hg] - Sitting 164.00 mm[Hg] - Sitting 64519 217 73597 3 98.20 Tympanic 81703 217 41308 5 73.00 mm[Hg] - Sitting 159.00 mm[Hg] - Sitting 73452 217 43222 9 98.40 Forehead Scan 55326 218 12634 3 97.90 Tympanic 28718 218 69307 5 77.00 mm[Hg] - Sitting 137.00 mm[Hg] - Sitting 50150 219 86390 0 97.70 Tympanic 72412 219 31698 6 97.60 Tympanic 86518 219 99023 4 76.00 mm[Hg] - Sitting 139.00 mm[Hg] - Sitting 40344 219 91629 4 97.80 Forehead Scan 38155 220 04322 9 97.90 Tympanic 64943 220 14768 9 76.00 mm[Hg] - Sitting 138.00 mm[Hg] - Sitting 12601 220 50665 6 98.10 Tympanic 71187 221 24462 5 67.00 mm[Hg] - Sitting 142.00 mm[Hg] - Sitting 29728 221 35760 8 98.20 Tympanic 95413 221 60643 0 98.30 Tympanic 66493 222 18658 7 98.20 Tympanic 15161 222 67538 8 97.90 Tympanic 00999 223 64504 3 98.20 Tympanic 56283 223 79056 3 98.00 Tympanic 00728 224 82801 0 59.00 mm[Hg] - Sitting 111.00 mm[Hg] - Sitting 98.40 Forehead Scan 95.00 % 56.00/ min 18.00/min 29655 224 62880 9 98.20 Forehead Scan 23348 224 44542 3 97.90 Tympanic 83253 225 11996 4 98.20 Tympanic 57430 225 55297 8 97.50 Forehead Scan 96956 228 28101 0 55.00 mm[Hg] - Sitting 118.00 mm[Hg] - Sitting 98.40 Tympanic 69.00/ min 44177 229 33060 8 78.00 mm[Hg] - Sitting 152.00 mm[Hg] - Sitting 70805 230 92917 0 62.00 mm[Hg] - Sitting 122.00 mm[Hg] - Sitting 53965 231 81814 7 72.00 mm[Hg] - Lying Down 140.00 mm[Hg] - Lying Down 08910 101 99539 3 97.70 Forehead Scan 20263 101 40624 1 254.10 NI 69.00/ min 95329 101 55005 9 72.00 mm[Hg] - Sitting 142.00 mm[Hg] - Sitting 97.70 Tympanic 18.00/min 15775 101 68848 3 72.00 mm[Hg] - Lying Down 142.00 mm[Hg] - Lying Down 77119 102 24929 8 68.00 mm[Hg] - Lying Down 152.00 mm[Hg] - Lying Down 18221 103 68660 5 74.00 mm[Hg] - Sitting 158.00 mm[Hg] - Sitting 00803 104 22104 9 78.00 mm[Hg] - Sitting 144.00 mm[Hg] - Sitting 00398 105 80628 5 68.00 mm[Hg] - Sitting 138.00 mm[Hg] - Sitting 84039 106 14041 1 70.00 mm[Hg] - Sitting 138.00 mm[Hg] - Sitting 53653 107 42585 1 67.00 mm[Hg] - Sitting 142.00 mm[Hg] - Sitting 84766 108 63974 0 74.00 mm[Hg] - Sitting 143.00 mm[Hg] - Sitting 80249 110 60656 6 85.00 mm[Hg] - Sitting 160.00 mm[Hg] - Sitting 97.80 Tympanic 93.00 % 76.00/ min 18.00/min 36217 111 55198 1 83.00 mm[Hg] - Sitting 129.00 mm[Hg] - Sitting 98.60 Tympanic 92.00 % 71.00/ min 18.00/min 97070 111 25302 5 60.00 mm[Hg] - Sitting 114.00 mm[Hg] - Sitting 98.70 Tympanic 92.00 % 76.00/ min 18.00/min 57725 112 40168 4 55.00 mm[Hg] - Sitting 125.00 mm[Hg] - Sitting 98.60 Tympanic 91.00 % 68.00/ min 18.00/min 15922 112 27767 9 75.00 mm[Hg] - Sitting 174.00 mm[Hg] - Sitting 97.70 Tympanic 96.00 % 71.00/ min 18.00/min 82549 113 42574 2 77.00 mm[Hg] - Sitting 139.00 mm[Hg] [...]
--- OUTSIDE RECORDS SUMMARY | 2024-07-26 11:13 | External Medical Summary | Continuity Of Care Document ---
Author Name Unknown Address [address] [place] [address] Organization [facility] () Care Team Providers Care Merchandise Planner Name Role Phone DO Pritchett Amy Primary Care Provider [phone] Allergies Allergy Reaction Start Date End Date Status AMINOGLYCOSIDES Active CIPRO Active GENTAMICIN Active NSAIDS (NON-STEROIDAL ANTI-INFLAMMATORY DRUG) 0 Active IBUPROFEN Active QUINOLONES Active VALIUM Active Medications Medication Instructions Dosage Start Date End Date Status Order Date Drug Code Frequency Route of Admin Diagnosis Code Substitutions Allowed Spikevax 6664-6800(1 2y up)(PF) 50 mcg/0.5 mL intramuscul ar suspension [COVID rob71-64(12 up)(andu)(P F)] 0.5mL Intramuscular 1 time Monitory 15 Minutes post injection for adverse effects; record site/temp For COVID 19 PREVENTION 0.5mL 01/02 Inactiv e 2023 84015 45030 4 1 time Intram uscula r False [facility] - Nurse initials indicate verificatio n that [id number] vaccine was administere d by [facility]at jon 1 Intramuscular 1 time ( Indicate vaccine type) For vaccine 1 05/03 Inactiv e 2023 1 time Intram uscula r False Lisinopril 40 mg tablet [generic] TAKE ONE (1) TABLET BY MOUTH IN THE MORNING. For DX- HTN 1 2023 Active 2023 94531 15724 1 Once daily By Mouth False Tizanidine 2 mg tablet [generic] TAKE ONE (1) TABLET BY MOUTH ONCE DAILY For MUSCLE SPASM 1 2023 Active 2023 42360 39643 0 Once daily By Mouth M62.838 False Tamsulosin 0.4 mg capsule [generic] TAKE (1) CAPSULE BY MOUTH AT BEDTIME For SPASMS 1 2023 Active 2023 84455 08359 0 Once daily By Mouth False Aspirin 81 mg tablet Once daily 1 TABLET BY MOUTH IN THE MORNING For DX- CAD DO NOT CRUSH, CHEW OR BREAK 81 mg 06/12 Inactiv e 2023 Once daily By Mouth False Baclofen 20 mg tablet [generic] 20 mg By Mouth 4 times a day For DX- MUSCLE SPASMS 20 mg 12/12 Inactiv e 2023 88722 37565 1 4 times a day By Mouth False Calcium citrate 250 mg tablet Once daily 4 TABLET BY MOUTH For DX- SUPPLEMENT 250 mg calci 12/12 Inactiv e 2023 Once daily By Mouth False Co Q-10 100 mg capsule 100 mg By Mouth Once daily For DX- SUPPLEMENT 100 mg 06/20 Inactiv e 2023 11992 37102 5 Once daily By Mouth False Furosemide 20 mg tablet [generic] 20 mg By Mouth Once daily For DX-CHF 20 mg 12/12 Inactiv e 2023 71616 31988 0 Once daily By Mouth False Gabapentin 300 mg capsule [generic] 300 mg By Mouth 3 times a day For DX- NEUROPATHY 300 mg 12/12 Inactiv e 2023 67157 79002 4 3 times a day By Mouth False Loratadine 10 mg tablet [generic] 10 mg By Mouth Once daily For DX- ALLERGIES 10 mg 2023 Active 2023 30620 57590 1 Once daily By Mouth False Miralax 17 gram/dose oral powder 17 gram/dose By Mouth IN THE MORNING Mix 1 TABLESPOON IN 8 OZ OF FLUID HOLD FOR LOOSE STOOLS For DX- CONSTIPATION 17 gram/do se 12/12 Inactiv e 2023 67262 63339 0 Once daily By Mouth False Paroxetine 30 mg tablet [generic] 30 mg By Mouth Once daily For DX- DEPRESSION 30 mg 2023 00/00 /0000 Active 2023 86999 16597 3 Once daily By Mouth False Potassium citrate ER 15 mEq (1,620 mg) tablet,exte nded release [generic] 15 mEq By Mouth 3 times a day For DX- SUPPLEMENT/DI URETIC USE/ HYPOCITRAUIRA DO NOT CRUSH 15 mEq 12/12 Inactiv e 2023 92365 20674 1 3 times a day By Mouth [...] For DX- DANDRUFF 12/12 Inactiv e 2023 81089 55661 4 3 times a week Topica l False Acetaminoph en 325 mg tablet [generic] TAKE 2 TABS (650MG) BY MOUTH EVERY 4 HOURS NEEDED FOR TEMP >100 NOT TO EXCEED 3GM/24HRS TAKE 2 TABS (650MG) BY MOUTH EVERY 4 HOURS NEEDED FOR TEMP >100 NOT TO EXCEED 3GM/24HRS For DX-FEVER 2 12/12 Inactiv e 2023 51084 23943 0 By Mouth False MILK OF MAGNESIA ADMINISTER 30 ML BY MOUTH ONCE DAILY NEEDED FOR CONSTIPATION X3 DAYS WITH NO BM. For DX- CONSTIPATION 30ML 12/12 Inactiv e 2023 03028 90805 9 By Mouth False Enema Disposable 19 gram-7 gram/118 mL ADMINISTER ONE ENEMA RECTALLY ONCE DAILY NEEDED FOR CONSTIPATION ON DAY 6 OF NO BM For DX- CONSTIPATION 12/12 Inactiv e 2023 42711 03486 1 Rectal False TUMS EXTRA STR 750MG TAKE (1) TABLET BY MOUTH THREE TIMES DAILY NEEDED FOR INDIGESTION For DX- INDIGESTION 1 12/12 Inactiv e 2023 46079 56232 8 By Mouth False Vitamin D3 25 [...] CONSTIPATION 10 mg 12/12 Inactiv e 2023 09575 92832 1 Rectal False Melatonin 3 mg tablet [generic] 3 mg By Mouth As Needed For DX-INSOMMIA 3 mg 12/12 Inactiv e 2023 05062 58699 8 By Mouth False Hydrocortis one 1 % topical cream [generic] 1 % Topical As Needed For DX- PAIN 1 % 12/12 Inactiv e 2023 44585 35882 1 Topica l False HYDROCORTIS ONE/PARMOXI NE [...] 5-10 50 mg 12/20 Inactiv e 2023 25792 38156 0 Every 4 hours as needed By Mouth False Tylenol 325 mg tablet 325 mg By Mouth Every 4 hours as needed For DX- PAIN PRN FOR MILD PAIN, DO NOT EXCEED 3000MG APAP/24 HOURS 325 mg 12/20 Inactiv e 2023 79384 50700 0 Every 4 hours as needed By Mouth False Baclofen 20 mg tablet [generic] 20 mg By Mouth 4 times a day For MUSCLE SPASMS 20 mg 12/20 Inactiv e 2023 05997 82947 1 4 times a day By Mouth False Calcium citrate 250 mg tablet [generic] Once daily TAKE 4 TABLETS (1000MG) BY MOUTH For SUPPLEMENT 1000 MG 06/26 Inactiv e 2023 71377 55464 6 Once daily By Mouth False Dulcolax (bisacodyl) 10 mg rectal suppository 10 mg Rectal Once daily For CONSTIPATION *MAY HOLD FOR LOOSE STOOLS* 10 mg 2023 Active 2023 29190 41290 1 Once daily Rectal False Gabapentin 300 mg capsule [generic] 300 mg By Mouth 3 times a day For NEUROPATHY 300 mg 2023 Active 2023 29867 35718 4 3 times a day By Mouth False Potassium citrate ER 15 mEq (1,620 mg) tablet,exte nded release [generic] 15 mEq By Mouth 3 times a day For SUPPLEMENT/DI URETIC USE/HYPOCITRA URIA 15 mEq 06/11 Inactiv e 2023 00782 90687 1 3 times a day By Mouth False Potassium chloride ER 20 mEq tablet,exte nded release [generic] 20 mEq By Mouth 3 times a day *DO NOT CRUSH, CHEW OR BREAK* For SUPPLEMENT 20 mEq 12/18 Inactiv e 2023 13585 26098 1 3 times a day By Mouth False Tizanidine 4 mg tablet [generic] 4 mg By Mouth Once daily For MUSCLE SPASMS 4 mg 2023 Active 2023 81613 03954 0 Once daily By Mouth False Tylenol 325 mg tablet 2 tabs By Mouth Every 4 hours as needed For Fever >100 DO NOT EXCEED 3000 MG APAP/24 Hours 2 tabs 12/20 Inactiv e 2023 88739 41336 0 Every 4 hours as needed By Mouth False Dulcolax (bisacodyl) 10 mg rectal suppository Daily as needed For Constipation 1 sup 12/20 Inactiv e 2023 31806 03016 1 Daily as needed Rectal False Fleet Enema 19 gram-7 gram/118 mL 1 Rectal Daily as neededFor Constipation 1 12/20 Inactiv e 2023 98244 69256 6 Daily as needed Rectal False Milk of Magnesia 400 mg/5 mL oral suspension [Magnesium hydroxide] PRN 30ml By Mouth Daily as needed for constipation one time daily if no BM, on day 4 of no BM (PRN refer to instructions) For Constipation For Constipatioin 30ml 12/20 Inactiv e 2023 49667 36087 6 1 time By Mouth False Melatonin 3 mg tablet [generic] 3 mg By Mouth Once daily As Needed For INSOMNIA 3 mg 12/20 Inactiv e 2023 93599 02884 8 Once daily By Mouth False Hydrocortis one 1 % topical cream [generic] 1 % Rectal Four times daily as needed For hemorroid pain 1 % 12/20 Inactiv e 2023 87308 96023 1 Four times daily as needed Rectal False X-STGH ANTACID 750MG CHEW TAKE (1) TABLET BY MOUTH THREE TIMES DAILY NEEDED FOR INDIGESTION 12/20 Inactiv e 2023 28041 19828 4 Three times daily as needed Saline Mist 0.65 % nasal spray aerosol 0.65 % Nares Four times daily as needed For DRYNESS 0.65 % 12/20 Inactiv e 2023 57039 55013 8 Four times daily as needed Nares False Vicks Vaporub 4.7 %-1.2 %-2.6 % topical ointment Apply topically to chest Three times daily as needed For CONGESTION 4.7-1.2 -2.6 12/20 Inactiv e 2023 84222 97505 1 Three times daily as needed Topica l False VITAMIN D3 2000U CAP TAKE ONE (1) CAPSULE BY MOUTH DAILY* DO NOT CRUSH, CHEW OR BREAK* For Supplement 1 capsule 12/19 Inactiv e 2023 07801 40241 0 Once daily By Mouth False Potassium chloride ER 20 mEq tablet,exte nded release(par t/cryst) [generic] TAKE (1) TABLET BY MOUTH THREE TIMES DAILY (MORNING, AFTERNOON, EVENING)*DO NOT CRUSH, CHEW, OR BREAK* For SUPPLEMENT 20 MEQ 06/11 Inactiv e 2023 70561 03804 5 3 times a day By Mouth False Aspirin 81 mg tablet,camron yed release [generic] TAKE ONE (1) TABLET BY MOUTH ONCE DAILY*DO NOT CRUSH, CHEW OR BREAK* For CAD 81 MG 12/22 Inactiv e 2023 20130 01132 0 Once daily By Mouth False Furosemide 20 mg tablet [generic] TAKE 1 AND 1/2 TABLETS (30MG) BY MOUTH ONCE DAILY For CHF 30mg 2023 Active 2023 98992 56577 1 Once daily By Mouth False Polyethylen e glycol 3350 17 gram/dose oral powder [generic] MIX 17 GRAMS (1 CAPFUL) IN 60Z OF LIQUID AND DRINK BY MOUTH ONCE DAILY *HOLD FOR LOOSE STOOLS* For constipation 17 g 2023 Active 2023 00810 26707 3 Once daily By Mouth False Vitamin D3 50 mcg (2,000 unit) capsule Once daily TAKE ONE (1) CAPSULE BY MOUTH DAILY* DO NOT CRUSH, CHEW OR BREAK* For Supplement 1 capsule 02/07 Inactiv e 2023 90612 21410 2 Once daily By Mouth False Fleet Enema 19 gram-7 gram/118 mL 1 Rectal Daily as neededFor Constipation 1 2023 0000 Active 2023 37617 82386 6 Daily as needed Rectal False Tums E-X 300 mg (as calcium carbonate 750 mg) chewable tablet 1 tab By Mouth TAKE (1) TABLET BY MOUTH THREE TIMES DAILY NEEDED FOR INDIGESTION 1 tab 202300 /0000 Active 2023 04643 37237 1 Three times daily as needed By Mouth False Tylenol 325 mg tablet 2 tabs By Mouth Every 4 hours as needed For Fever >100 DO NOT EXCEED 3000 MG APAP/24 Hours 2 tabs 202300 /0000 Active 2023 72956 55939 0 Every 4 hours as needed By Mouth False Vicks Vaporub 4.7 %-1.2 %-2.6 % topical ointment Apply topically to chest Three times daily as needed For CONGESTION topical 202300 Active 2023 79137 31530 1 Three times daily as needed Topica l False Tylenol 325 mg tablet 2 tabs By Mouth Every 4 hours as needed For DX- PAIN PRN FOR MILD PAIN, DO NOT EXCEED 3000MG APAP/24 HOURS 2 tabs 202300 Active 2023 15339 29992 0 Every 4 hours as needed By Mouth False Tramadol 50 mg tablet [generic] 1 tab By Mouth Every 4 hours as needed For DX- PAIN 5-10 1 tab 03/10 Inactiv e 2023 02282 39447 0 Every 4 hours as needed By Mouth False Saline Mist 0.65 % nasal spray aerosol 2 sprays Nares Four times daily as needed For DRYNESS 2 sprays 202300 / Active 2023 29647 50124 8 Four times daily as needed Nares False Dulcolax (bisacodyl) 10 mg rectal suppository Daily as needed For Constipation 1 sup 202300 / Active 2023 41272 86202 1 Daily as needed Rectal False Hydrocortis one-pramoxi ne 1 %-1 % rectal cream [generic] 1 mague Rectal Four times daily as needed For hemorroid pain 1 mague 202300 /0000 Active 2023 51023 22923 4 Four times daily as needed Rectal False Melatonin 3 mg tablet [generic] 1 tab By Mouth At bedtime as needed For INSOMNIA 1 tab 12/24 Inactiv e 2023 80481 86628 8 At bedtime as needed By Mouth False Milk of Magnesia 400 mg/5 mL oral suspension 30ml By Mouth Daily as needed Daily as needed for constipation one time daily if no BM, on day 4 of no BM (PRN refer to instructions) For Constipation For Constipatioin 30ml 2023 Active 2023 99808 25259 2 Daily as needed By Mouth False Baclofen 20 mg tablet [generic] 20 mg By Mouth 4 times a day For MUSCLE SPASMS 20 mg 2023 Active 2023 02359 29334 1 4 times a day By Mouth False Melatonin 3 mg tablet [generic] 1 tab By Mouth At bedtime as needed For INSOMNIA 1 tab 2023 Active 2023 52888 95170 8 At bedtime as needed By Mouth False Bactrim DS 800 mg-160 mg tablet 1 tab By Mouth Twice daily For URINARY TRACT INFECTION, SITE NOT SPECIFIED 1 tab 01/06 Inactiv e 2023 90931 80444 1 Twice daily By Mouth N39.0 False Cefdinir 300 mg capsule [generic] 300 mg By Mouth Twice daily For UTI 300 mg 01/07 Inactiv e 2023 23358 98652 0 Twice daily By Mouth False Cefdinir 300 mg capsule [generic] 300 mg By Mouth Twice daily For UTI 300 mg 01/17 Inactiv e 2023 61551 25090 0 Twice daily By Mouth False Zyrtec 10 mg tablet 10 mg By Mouth Once daily For sinus congestion 10 mg 01/22 Inactiv e 2023 58964 74965 0 Once daily By Mouth False Tobramycin 0.3 %-dexametha sone 0.1 % eye drops,suspe nsion [generic] 0.3-0.1 % Left Eye 4 times a day For eye infection 0.3-0.1 % 02/05 Inactiv e 2023 23812 72204 5 4 times a day Left Eye False Fluconazole 150 mg tablet [generic] 150 mg By Mouth 1 time For yeast infection 150 mg 02/15 Inactiv e 2023 38825 96150 2 1 time By Mouth False Tramadol 50 mg tablet [generic] 1 tab By Mouth Every 4 hours as needed For DX- PAIN 5-10 1 tab 2023 00/00 /0000 Active 2023 52870 56790 0 Every 4 hours as needed By Mouth False Tobramycin 0.3 %-dexametha sone 0.1 % eye drops,suspe nsion [generic] 1 drop Left Eye 4 times a day For Inflammation of left eye 1 drop 05/08 Inactiv e 2023 94279 85405 5 4 times a day Left Eye False Voltaren Arthritis Pain 1 % topical gel 2 gm Topical Twice daily to rigth shoulder for 2 weeks For pain 2 gm 05/08 Inactiv e 2023 04400 49064 1 Twice daily Topica l False Chlorthalid one 25 mg tablet [generic] 12.5mg By Mouth Once daily For HTN 12.5mg 05/06 Inactiv e 2023 31821 71971 0 Once daily By Mouth False Chlorthalid one 25 mg tablet [generic] 12.5mg By Mouth Once daily For HTN 12.5mg 05/07 Inactiv e 2023 35403 48713 0 Once daily By Mouth False Chlorthalid one 25 mg tablet [generic] 05/07 Inactiv e 2023 13020 60863 0 Chlorthalid one 25 mg tablet [generic] 12.5mg By Mouth Once daily For HTN 12.5mg 06/26 Inactiv e 2023 25383 95170 0 Once daily By Mouth False Norvasc 5 mg tablet 5mg By Mouth Once daily, hold medication if systolic is less than 90 For HYPERTENSIVE HEART DISEASE WITHOUT HEART FAILURE 5mg 06/03 Inactiv e 2023 66237 57660 1 Once daily By Mouth I11.9 False Norvasc 5 mg tablet 5mg By Mouth Once daily, hold medication if systolic is less than 90 For HYPERTENSIVE HEART DISEASE WITHOUT HEART FAILURE 5mg 06/03 Inactiv e 2023 72213 47834 1 Once daily By Mouth I11.9 False Norvasc 5 mg tablet 5mg By Mouth Once daily, hold medication if systolic is less than 90 For HYPERTENSIVE HEART DISEASE WITHOUT HEART FAILURE 5mg 06/26 Inactiv e 2023 71151 52860 1 Once daily By Mouth I11.9 False [...] 10 mg 2023 00/00 /0000 Active 2023 96912 89850 1 Once daily By Mouth False DISCONTINUE [...] CAD 81 mg 06/14 Inactiv e 2023 49978 10127 9 Once daily By Mouth False Aspirin 81 mg tablet,camron yed release [generic] 06/14 Inactiv e 2023 00318 46380 9 Aspirin 81 mg tablet,camron yed release [generic] 81 mg By Mouth Once daily Do not crush, chew, or break For CAD 81 mg 06/154 Inactiv e 2023 32284 01156 9 Once daily By Mouth False Cefpodoxime 200 mg tablet [generic] 200mg By Mouth Twice daily For UTI 200mg 07/04 Inactiv e 2023 92672 08013 0 Twice daily By Mouth False Calcium citrate 250 mg tablet [generic] 06/26 Inactiv e 2023 12957 70150 6 Calcium citrate 250 mg tablet [generic] Once daily TAKE 4 TABLETS (1000MG) BY MOUTH For SUPPLEMENT 500 MG 2023 Active 2023 70351 60625 6 Once daily By Mouth False Norvasc 5 mg tablet 7.5 mg By Mouth Once daily Hold medication if SBP <90 For HYPERTENSIVE HEART DISEASE WITHOUT HEART FAILURE 7.5 mg 06/30 Inactiv e 2023 48879 37903 1 Once daily By Mouth I11.9 False Norvasc 5 mg tablet 7.5 mg By Mouth Once daily Hold medication if SBP <90 For HYPERTENSIVE HEART DISEASE WITHOUT HEART FAILURE 7.5 mg 07/06 Inactiv e 2023 81751 38185 1 Once daily By Mouth I11.9 False Simethicone 125 mg capsule [generic] 2 capule By Mouth Twice daily as needed For bloating/gas pain 2 capule 2023 Active 2023 36298 40875 0 Twice daily as needed By Mouth False Cepacol Sore Throat (benzocaine -menthol) 15 mg-2.6 mg lozenges 2 lozenges By Mouth Every 6 hours as needed For sore throat 2 lozenge s 2023 Active 2023 50423 33049 6 Every 6 hours as needed By Mouth False Cefepime 1 gram solution for injection [generic] 1g Intramuscular Every 12 hours 1g intramuscular ly ever 12 hours For UTI 1g 07/06 Inactiv e 2023 38783 45844 4 Every 12 hours Intram uscula r False Cefepime 1 gram solution for injection [generic] 07/06 Inactiv e 2023 96321 67686 4 Cefepime 1 gram solution for injection [generic] 1g Intramuscular Every 12 hours 1g intramuscular ly ever 12 hours For UTI Reconstitute with 2.4 ML of NSS. 1g 07/08 Inactiv e 2023 49338 82649 4 Every 12 hours Intram uscula r False Norvasc 5 mg tablet 07/06 Inactiv e 2023 80548 39821 1 I11.9 Norvasc 5 mg tablet 7.5 mg By Mouth Once daily Hold medication if SBP <90 For HYPERTENSIVE HEART DISEASE WITHOUT HEART FAILURE 7.5 mg 07/18 Inactiv e 2023 61884 34045 1 Once daily By Mouth I11.9 False Cefepime 1 gram solution for injection [generic] 07/08 Inactiv e 2023 89286 08833 4 Cefepime 1 gram solution for injection [generic] 1g Intramuscular Every 12 hours 1g intramuscular ly ever 12 hours For UTI Reconstitute with 2.4 ML of NSS. 1g 07/08 Inactiv e 2023 64932 39420 4 Every 12 hours Intram uscula r False Cefepime 1 gram solution for injection [generic] 07/08 Inactiv e 2023 61640 45601 4 Cefepime 1 gram solution for injection [generic] 1g Intramuscular Every 12 hours 1g intramuscular ly ever 12 hours For UTI Reconstitute with 2.4 ML of NSS. 1g 07/11 Inactiv e 2023 33935 06476 4 Every 12 hours Intram uscula r False Fleet Enema 19 gram-7 gram/118 mL 1 Rectal 1 time For constipation 1 07/16 Inactiv e 2024 18076 97023 6 1 time Rectal False Fleet Enema 19 gram-7 gram/118 mL 1 Rectal 1 time For constipation 1 07/17 Inactiv e 2024 23407 51665 6 1 time Rectal False Norvasc 5 mg tablet 7.5 mg By Mouth Once daily For HYPERTENSIVE HEART DISEASE WITHOUT HEART FAILURE 7.5 mg 2024 00/00 /0000 Active 2024 64706 34016 1 Once daily By Mouth I11.9 False Potassium chloride ER 20 mEq tablet,exte nded release(par t/cryst) [generic] 40 mEq By Mouth 1 time For low potassium prior to surgery 40 mEq 07/18 Inactiv e 2024 88817 22298 1 1 time By Mouth False Potassium chloride ER 20 mEq tablet,exte nded release(par t/cryst) [generic] 40 mEq By Mouth 1 time For low potassium prior to surgery 40 mEq 07/18 Inactiv e 2024 81575 05445 1 1 time By Mouth False Potassium chloride ER 20 mEq tablet,exte nded release(par t/cryst) [generic] 40 mEq By Mouth 1 time For low potassium 40 mEq 07/18 Inactiv e 2024 95859 13878 1 1 time By Mouth False Potassium chloride ER 20 mEq tablet,exte nded release(par t/cryst) [generic] 40 mEq By Mouth 1 time For low potassium 40 mEq 07/18 Inactiv e 2024 84386 92758 1 1 time By Mouth False Potassium chloride ER 20 mEq tablet,exte nded release [generic] 2 By Mouth 1 time For low potassium 2 07/19 Inactiv e 2024 55286 23998 1 1 time By Mouth False Potassium chloride ER 20 mEq tablet,exte nded release [generic] 2 capsules capsules By Mouth 1 time Please send capsule (2 capsules) For low potassium 2 capsule s 07/20 Inactiv e 2024 94843 16658 1 1 time By Mouth False Potassium chloride ER 20 mEq tablet,exte nded release(par t/cryst) [generic] TAKE (2) TABLETS (40MEQ) BY MOUTH X1 DOSE 07/20 Inactiv e 2024 87906 53762 5 Cefepime 1 gram solution for injection [generic] 1 gram Intramuscular Every 12 hours For Urinary Tract Infection 1 gram 07/21 Inactiv e 2024 79400 00650 4 Every 12 hours Intram uscula r False Cefepime 1 gram solution for injection [generic] 07/21 Inactiv e 2024 92270 53951 4 Cefepime 1 gram solution for injection [generic] 1 gram Intramuscular Every 12 hours For Urinary Tract Infection 1 gram 07/22 Inactiv e 2024 31065 86805 4 Every 12 hours Intram uscula r False Cefepime 1 gram solution for injection [generic] 1 gram Intramuscular Every 12 hours For Urinary Tract Infection 1 gram 08/06 Active 2024 52644 63144 4 Every 12 hours Intram uscula r False Nystatin 100,000 unit/gram topical cream [generic] 100,000 unit Topical As Needed For DX- EXCORIATION 100,000 unit 12/12 Inactiv e 2023 23044 93571 5 Topica l False Vicks Vaporub 4.7 %-1.2 %-2.6 % topical ointment 4.7-1.2-2.6 Topical 3 times a day As Needed For DX- CONGESTION 4.7-1.2 -2.6 12/12 Inactiv e 2023 55286 10344 1 3 times a day Topica l False Ketoconazol e 2 % shampoo [generic] APPLY SHAMPOO TOPICALLY TO SCALP DURING HAIR WASHINGDX: ELVIA DERM OF SCALP For DX- ELVIA DERM OF SCALP 12/12 Inactiv e 2023 66605 69065 4 Topica l False THERA SILICONE SKIN GUARD Topical Twice daily 1 APPLICATION TOPICALLY IN THE MORNING AND AT BEDTIME TO SCROTUM For DX- PREVENTION 2023 00/00 /0000 Active 2023 Twice daily Topica l False Selenium sulfide 2.5 % lotion [generic] 2.5 % Topical EVERY MONDAY, MONDAY AND MONDAY AFTER SHOWER For DANDRUFF 2.5 % 2023 Active 2023 41793 78866 4 3 times a week Topica l False Nystatin (bulk) 100 million unit powder [generic] 100 million Topical Twice daily as needed For EXOCORATION 100 million 12/20 Inactiv e 2023 69505 93404 1 Twice daily as needed Topica l False Ketoconazol e 2 % shampoo [generic] Once daily APPLY SHAMPOO TOPICALLY TO SCALP DURING HAIR WASHING ON SHOWER DAYS- , , SAT For ELVIA DERM OF SCAP 2 % 2023 Active 2023 48401 14428 4 Once daily Topica l False Nystatin 100,000 unit/gram topical cream [generic] 1 mague Topical Twice daily as needed For EXOCORATION 1 mague 06/05 Inactiv e 2023 68628 13173 5 Twice daily as needed Topica l False Nystatin 100,000 unit/gram topical powder [generic] 100,000 unit Topical Twice daily to scrotum with AM and PM care For Scrotal excoriation 100,000 unit 06/05 Inactiv e 2023 87004 25791 5 Twice daily Topica l False Problems [...] adjustment of urinary device 07/21/2023 Active Z79.01 [facility] (current) use of anticoagulants 07/21 Active N31.9 [...] weight Temperature SpO2 Blood Sugar Pulse Respirations 37726 216 80540 1 254.10 NI 20181 216 70742 2 79.00 mm[Hg] - Sitting 157.00 mm[Hg] - Sitting 73 NI 254.10 NI 36.30 Tympanic 95.00 % 72.00/ min 16.00/min 84538 216 17603 4 98.80 Tympanic 15907 216 62490 2 78.00 mm[Hg] - Sitting 164.00 mm[Hg] - Sitting 42156 217 45841 3 98.20 Tympanic 57348 217 16621 5 73.00 mm[Hg] - Sitting 159.00 mm[Hg] - Sitting 56283 217 36913 9 98.40 Forehead Scan 06921 218 09825 3 97.90 Tympanic 59589 218 79536 5 77.00 mm[Hg] - Sitting 137.00 mm[Hg] - Sitting 92345 219 48695 0 97.70 Tympanic 38083 219 94817 6 97.60 Tympanic 07924 219 17326 4 76.00 mm[Hg] - Sitting 139.00 mm[Hg] - Sitting 80674 219 71926 4 97.80 Forehead Scan 62227 220 18056 9 97.90 Tympanic 95492 220 57586 9 76.00 mm[Hg] - Sitting 138.00 mm[Hg] - Sitting 20256 220 49194 6 98.10 Tympanic 58822 221 41191 5 67.00 mm[Hg] - Sitting 142.00 mm[Hg] - Sitting 51892 221 68551 8 98.20 Tympanic 47379 221 59243 0 98.30 Tympanic 84689 222 88769 7 98.20 Tympanic 01106 222 56003 8 97.90 Tympanic 44104 223 85662 3 98.20 Tympanic 26610 223 70555 3 98.00 Tympanic 67298 224 97890 0 59.00 mm[Hg] - Sitting 111.00 mm[Hg] - Sitting 98.40 Forehead Scan 95.00 % 56.00/ min 18.00/min 19282 224 92606 9 98.20 Forehead Scan 68536 224 67809 3 97.90 Tympanic 49842 225 43761 4 98.20 Tympanic 65188 225 75344 8 97.50 Forehead Scan 51881 228 19962 0 55.00 mm[Hg] - Sitting 118.00 mm[Hg] - Sitting 98.40 Tympanic 69.00/ min 08937 229 22872 8 78.00 mm[Hg] - Sitting 152.00 mm[Hg] - Sitting 18445 230 29918 0 62.00 mm[Hg] - Sitting 122.00 mm[Hg] - Sitting 03252 231 03210 7 72.00 mm[Hg] - Lying Down 140.00 mm[Hg] - Lying Down 73988 101 16256 3 97.70 Forehead Scan 53242 101 91235 1 254.10 NI 69.00/ min 65181 101 61558 9 72.00 mm[Hg] - Sitting 142.00 mm[Hg] - Sitting 97.70 Tympanic 18.00/min 27199 101 76042 3 72.00 mm[Hg] - Lying Down 142.00 mm[Hg] - Lying Down 75177 102 79247 8 68.00 mm[Hg] - Lying Down 152.00 mm[Hg] - Lying Down 97031 103 71150 5 74.00 mm[Hg] - Sitting 158.00 mm[Hg] - Sitting 56072 104 07361 9 78.00 mm[Hg] - Sitting 144.00 mm[Hg] - Sitting 89881 105 95643 5 68.00 mm[Hg] - Sitting 138.00 mm[Hg] - Sitting 72022 106 64354 1 70.00 mm[Hg] - Sitting 138.00 mm[Hg] - Sitting 49553 107 73478 1 67.00 mm[Hg] - Sitting 142.00 mm[Hg] - Sitting 35581 108 03062 0 74.00 mm[Hg] - Sitting 143.00 mm[Hg] - Sitting 59246 110 52984 6 85.00 mm[Hg] - Sitting 160.00 mm[Hg] - Sitting 97.80 Tympanic 93.00 % 76.00/ min 18.00/min 41574 111 98514 1 83.00 mm[Hg] - Sitting 129.00 mm[Hg] - Sitting 98.60 Tympanic 92.00 % 71.00/ min 18.00/min 79301 111 04064 5 60.00 mm[Hg] - Sitting 114.00 mm[Hg] - Sitting 98.70 Tympanic 92.00 % 76.00/ min 18.00/min 86719 112 84122 4 55.00 mm[Hg] - Sitting 125.00 mm[Hg] - Sitting 98.60 Tympanic 91.00 % 68.00/ min 18.00/min 27518 112 [id number] 9 75.00 mm[Hg] - Sitting 174.00 mm[Hg] - Sitting 97.70 Tympanic 96.00 % 71.00/ min 18.00/min 11110 113 69550 2 77.00 mm[Hg] - Sitting 139.00 mm[Hg] - Sitting 98.10 Tympanic 97.00 % 81.00/ min 18.00/min 72822 113 64957 4 78.00 mm[Hg] - Sitting 153.00 mm[Hg] - Sitting 98.40 Tympanic 93.00 % 69.00/ min 18.00/min 75776 114 33644 5 76.00 mm[Hg] - Sitting 137.00 mm[Hg] [...]
--- OUTSIDE RECORDS SUMMARY | 2024-07-26 11:13 | External Medical Summary | Continuity Of Care Document ---
Author Name Unknown Address [address] [place] [address] Organization [facility] () Care Team Providers Care Field Enumerator Name Role Phone DO Pritchett Amy Primary Care Provider [phone] Allergies Allergy Reaction Start Date End Date Status AMINOGLYCOSIDES Active CIPRO Active GENTAMICIN Active NSAIDS (NON-STEROIDAL ANTI-INFLAMMATORY DRUG) 0 Active IBUPROFEN Active QUINOLONES Active VALIUM Active Medications Medication Instructions Dosage Start Date End Date Status Order Date Drug Code Frequency Route of Admin Diagnosis Code Substitutions Allowed Spikevax [id number](1 2y up)(PF) 50 mcg/0.5 mL intramuscul ar suspension [COVID [id number](12 up)(andu)(P F)] 0.5mL Intramuscular 1 time Monitory 15 Minutes post injection for adverse effects; record site/temp For COVID 19 PREVENTION 0.5mL 01/02 Inactiv e 2023 79022 38815 4 1 time Intram uscula r False [facility] - Nurse initials indicate verificatio n that [id number] vaccine was administere d by [facility] Representat jon 1 Intramuscular 1 time ( Indicate vaccine type) For vaccine 1 05/03 Inactiv e 2023 1 time Intram uscula r False Lisinopril 40 mg tablet [generic] TAKE ONE (1) TABLET BY MOUTH IN THE MORNING. For DX- HTN 1 2023 Active 2023 16687 03494 1 Once daily By Mouth False Tizanidine 2 mg tablet [generic] TAKE ONE (1) TABLET BY MOUTH ONCE DAILY For MUSCLE SPASM 1 2023 Active 2023 01147 81601 0 Once daily By Mouth M62.838 False Tamsulosin 0.4 mg capsule [generic] TAKE (1) CAPSULE BY MOUTH AT BEDTIME For SPASMS 1 2023 Active 2023 47050 97203 0 Once daily By Mouth False Aspirin 81 mg tablet Once daily 1 TABLET BY MOUTH IN THE MORNING For DX- CAD DO NOT CRUSH, CHEW OR BREAK 81 mg 06/12 Inactiv e 2023 Once daily By Mouth False Baclofen 20 mg tablet [generic] 20 mg By Mouth 4 times a day For DX- MUSCLE SPASMS 20 mg 12/12 Inactiv e 2023 69453 94086 1 4 times a day By Mouth False Calcium citrate 250 mg tablet Once daily 4 TABLET BY MOUTH For DX- SUPPLEMENT 250 mg calci 12/12 Inactiv e 2023 Once daily By Mouth False Co Q-10 100 mg capsule 100 mg By Mouth Once daily For DX- SUPPLEMENT 100 mg 06/20 Inactiv e 2023 72736 98072 5 Once daily By Mouth False Furosemide 20 mg tablet [generic] 20 mg By Mouth Once daily For DX-CHF 20 mg 12/12 Inactiv e 2023 51805 96558 0 Once daily By Mouth False Gabapentin 300 mg capsule [generic] 300 mg By Mouth 3 times a day For DX- NEUROPATHY 300 mg 12/12 Inactiv e 2023 76734 19011 4 3 times a day By Mouth False Loratadine 10 mg tablet [generic] 10 mg By Mouth Once daily For DX- ALLERGIES 10 mg 2023 Active 2023 13415 67514 1 Once daily By Mouth False Miralax 17 gram/dose oral powder 17 gram/dose By Mouth IN THE MORNING Mix 1 TABLESPOON IN 8 OZ OF FLUID HOLD FOR LOOSE STOOLS For DX- CONSTIPATION 17 gram/do se 12/12 Inactiv e 2023 26761 05721 0 Once daily By Mouth False Paroxetine 30 mg tablet [generic] 30 mg By Mouth Once daily For DX- DEPRESSION 30 mg 2023 00/00 /0000 Active 2023 44326 68692 3 Once daily By Mouth False Potassium citrate ER 15 mEq (1,620 mg) tablet,exte nded release [generic] 15 mEq By Mouth 3 times a day For DX- SUPPLEMENT/DI URETIC USE/ HYPOCITRAUIRA DO NOT CRUSH 15 mEq 12/12 Inactiv e 2023 63924 66296 1 3 times a day By Mouth [...] For DX- DANDRUFF 12/12 Inactiv e 2023 37762 05919 4 3 times a week Topica l False Acetaminoph en 325 mg tablet [generic] TAKE 2 TABS (650MG) BY MOUTH EVERY 4 HOURS NEEDED FOR TEMP >100 NOT TO EXCEED 3GM/24HRS TAKE 2 TABS (650MG) BY MOUTH EVERY 4 HOURS NEEDED FOR TEMP >100 NOT TO EXCEED 3GM/24HRS For DX-FEVER 2 12/12 Inactiv e 2023 68142 89468 0 By Mouth False MILK OF MAGNESIA ADMINISTER 30 ML BY MOUTH ONCE DAILY NEEDED FOR CONSTIPATION X3 DAYS WITH NO BM. For DX- CONSTIPATION 30ML 12/12 Inactiv e 2023 68240 52930 9 By Mouth False Enema Disposable 19 gram-7 gram/118 mL ADMINISTER ONE ENEMA RECTALLY ONCE DAILY NEEDED FOR CONSTIPATION ON DAY 6 OF NO BM For DX- CONSTIPATION 12/12 Inactiv e 2023 71660 43715 1 Rectal False TUMS EXTRA STR 750MG TAKE (1) TABLET BY MOUTH THREE TIMES DAILY NEEDED FOR INDIGESTION For DX- INDIGESTION 1 12/12 Inactiv e 2023 30785 54985 8 By Mouth False Vitamin D3 25 [...] CONSTIPATION 10 mg 12/12 Inactiv e 2023 65532 99318 1 Rectal False Melatonin 3 mg tablet [generic] 3 mg By Mouth As Needed For DX-INSOMMIA 3 mg 12/12 Inactiv e 2023 11532 93939 8 By Mouth False Hydrocortis one 1 % topical cream [generic] 1 % Topical As Needed For DX- PAIN 1 % 12/12 Inactiv e 2023 51654 46832 1 Topica l False HYDROCORTIS ONE/PARMOXI NE [...] 5-10 50 mg 12/20 Inactiv e 2023 21543 32271 0 Every 4 hours as needed By Mouth False Tylenol 325 mg tablet 325 mg By Mouth Every 4 hours as needed For DX- PAIN PRN FOR MILD PAIN, DO NOT EXCEED 3000MG APAP/24 HOURS 325 mg 12/20 Inactiv e 2023 97308 52783 0 Every 4 hours as needed By Mouth False Baclofen 20 mg tablet [generic] 20 mg By Mouth 4 times a day For MUSCLE SPASMS 20 mg 12/20 Inactiv e 2023 25249 52033 1 4 times a day By Mouth False Calcium citrate 250 mg tablet [generic] Once daily TAKE 4 TABLETS (1000MG) BY MOUTH For SUPPLEMENT 1000 MG 06/26 Inactiv e 2023 53164 04106 6 Once daily By Mouth False Dulcolax (bisacodyl) 10 mg rectal suppository 10 mg Rectal Once daily For CONSTIPATION *MAY HOLD FOR LOOSE STOOLS* 10 mg 2023 Active 2023 93902 85474 1 Once daily Rectal False Gabapentin 300 mg capsule [generic] 300 mg By Mouth 3 times a day For NEUROPATHY 300 mg 2023 Active 2023 97180 94686 4 3 times a day By Mouth False Potassium citrate ER 15 mEq (1,620 mg) tablet,exte nded release [generic] 15 mEq By Mouth 3 times a day For SUPPLEMENT/DI URETIC USE/HYPOCITRA URIA 15 mEq 06/11 Inactiv e 2023 47736 26135 1 3 times a day By Mouth False Potassium chloride ER 20 mEq tablet,exte nded release [generic] 20 mEq By Mouth 3 times a day *DO NOT CRUSH, CHEW OR BREAK* For SUPPLEMENT 20 mEq 12/18 Inactiv e 2023 28228 03297 1 3 times a day By Mouth False Tizanidine 4 mg tablet [generic] 4 mg By Mouth Once daily For MUSCLE SPASMS 4 mg 2023 Active 2023 59042 02394 0 Once daily By Mouth False Tylenol 325 mg tablet 2 tabs By Mouth Every 4 hours as needed For Fever >100 DO NOT EXCEED 3000 MG APAP/24 Hours 2 tabs 12/20 Inactiv e 2023 76656 83233 0 Every 4 hours as needed By Mouth False Dulcolax (bisacodyl) 10 mg rectal suppository Daily as needed For Constipation 1 sup 12/20 Inactiv e 2023 24307 74505 1 Daily as needed Rectal False Fleet Enema 19 gram-7 gram/118 mL 1 Rectal Daily as neededFor Constipation 1 12/20 Inactiv e 2023 97183 08475 6 Daily as needed Rectal False Milk of Magnesia 400 mg/5 mL oral suspension [Magnesium hydroxide] PRN 30ml By Mouth Daily as needed for constipation one time daily if no BM, on day 4 of no BM (PRN refer to instructions) For Constipation For Constipatioin 30ml 12/20 Inactiv e 2023 96244 03546 6 1 time By Mouth False Melatonin 3 mg tablet [generic] 3 mg By Mouth Once daily As Needed For INSOMNIA 3 mg 12/20 Inactiv e 2023 96709 48387 8 Once daily By Mouth False Hydrocortis one 1 % topical cream [generic] 1 % Rectal Four times daily as needed For hemorroid pain 1 % 12/20 Inactiv e 2023 65685 42756 1 Four times daily as needed Rectal False X-STGH ANTACID 750MG CHEW TAKE (1) TABLET BY MOUTH THREE TIMES DAILY NEEDED FOR INDIGESTION 12/20 Inactiv e 2023 61995 24666 4 Three times daily as needed Saline Mist 0.65 % nasal spray aerosol 0.65 % Nares Four times daily as needed For DRYNESS 0.65 % 12/20 Inactiv e 2023 02555 32625 8 Four times daily as needed Nares False Vicks Vaporub 4.7 %-1.2 %-2.6 % topical ointment Apply topically to chest Three times daily as needed For CONGESTION 4.7-1.2 -2.6 12/20 Inactiv e 2023 31131 58186 1 Three times daily as needed Topica l False VITAMIN D3 2000U CAP TAKE ONE (1) CAPSULE BY MOUTH DAILY* DO NOT CRUSH, CHEW OR BREAK* For Supplement 1 capsule 12/19 Inactiv e 2023 53222 53609 0 Once daily By Mouth False Potassium chloride ER 20 mEq tablet,exte nded release(par t/cryst) [generic] TAKE (1) TABLET BY MOUTH THREE TIMES DAILY (MORNING, AFTERNOON, EVENING)*DO NOT CRUSH, CHEW, OR BREAK* For SUPPLEMENT 20 MEQ 06/11 Inactiv e 2023 59157 21178 5 3 times a day By Mouth False Aspirin 81 mg tablet,camron yed release [generic] TAKE ONE (1) TABLET BY MOUTH ONCE DAILY*DO NOT CRUSH, CHEW OR BREAK* For CAD 81 MG 12/22 Inactiv e 2023 41841 34392 0 Once daily By Mouth False Furosemide 20 mg tablet [generic] TAKE 1 AND 1/2 TABLETS (30MG) BY MOUTH ONCE DAILY For CHF 30mg 2023 Active 2023 65252 85794 1 Once daily By Mouth False Polyethylen e glycol 3350 17 gram/dose oral powder [generic] MIX 17 GRAMS (1 CAPFUL) IN 60Z OF LIQUID AND DRINK BY MOUTH ONCE DAILY *HOLD FOR LOOSE STOOLS* For constipation 17 g 2023 Active 2023 88814 93029 3 Once daily By Mouth False Vitamin D3 50 mcg (2,000 unit) capsule Once daily TAKE ONE (1) CAPSULE BY MOUTH DAILY* DO NOT CRUSH, CHEW OR BREAK* For Supplement 1 capsule 02/07 Inactiv e 2023 33324 06009 2 Once daily By Mouth False Fleet Enema 19 gram-7 gram/118 mL 1 Rectal Daily as neededFor Constipation 1 2023 0000 Active 2023 20894 92574 6 Daily as needed Rectal False Tums E-X 300 mg (as calcium carbonate 750 mg) chewable tablet 1 tab By Mouth TAKE (1) TABLET BY MOUTH THREE TIMES DAILY NEEDED FOR INDIGESTION 1 tab 202300 /0000 Active 2023 23857 39136 1 Three times daily as needed By Mouth False Tylenol 325 mg tablet 2 tabs By Mouth Every 4 hours as needed For Fever >100 DO NOT EXCEED 3000 MG APAP/24 Hours 2 tabs 202300 /0000 Active 2023 23547 96678 0 Every 4 hours as needed By Mouth False Vicks Vaporub 4.7 %-1.2 %-2.6 % topical ointment Apply topically to chest Three times daily as needed For CONGESTION topical 202300 Active 2023 08593 06136 1 Three times daily as needed Topica l False Tylenol 325 mg tablet 2 tabs By Mouth Every 4 hours as needed For DX- PAIN PRN FOR MILD PAIN, DO NOT EXCEED 3000MG APAP/24 HOURS 2 tabs 202300 Active 2023 90180 43133 0 Every 4 hours as needed By Mouth False Tramadol 50 mg tablet [generic] 1 tab By Mouth Every 4 hours as needed For DX- PAIN 5-10 1 tab 03/10 Inactiv e 2023 67837 57072 0 Every 4 hours as needed By Mouth False Saline Mist 0.65 % nasal spray aerosol 2 sprays Nares Four times daily as needed For DRYNESS 2 sprays 202300 / Active 2023 74869 10531 8 Four times daily as needed Nares False Dulcolax (bisacodyl) 10 mg rectal suppository Daily as needed For Constipation 1 sup 202300 / Active 2023 38601 85302 1 Daily as needed Rectal False Hydrocortis one-pramoxi ne 1 %-1 % rectal cream [generic] 1 mague Rectal Four times daily as needed For hemorroid pain 1 mague 202300 /0000 Active 2023 35031 98855 4 Four times daily as needed Rectal False Melatonin 3 mg tablet [generic] 1 tab By Mouth At bedtime as needed For INSOMNIA 1 tab 12/24 Inactiv e 2023 71049 17345 8 At bedtime as needed By Mouth False Milk of Magnesia 400 mg/5 mL oral suspension 30ml By Mouth Daily as needed Daily as needed for constipation one time daily if no BM, on day 4 of no BM (PRN refer to instructions) For Constipation For Constipatioin 30ml 2023 Active 2023 33509 22186 2 Daily as needed By Mouth False Baclofen 20 mg tablet [generic] 20 mg By Mouth 4 times a day For MUSCLE SPASMS 20 mg 2023 Active 2023 13354 43896 1 4 times a day By Mouth False Melatonin 3 mg tablet [generic] 1 tab By Mouth At bedtime as needed For INSOMNIA 1 tab 2023 Active 2023 15707 46846 8 At bedtime as needed By Mouth False Bactrim DS 800 mg-160 mg tablet 1 tab By Mouth Twice daily For URINARY TRACT INFECTION, SITE NOT SPECIFIED 1 tab 01/06 Inactiv e 2023 99928 95360 1 Twice daily By Mouth N39.0 False Cefdinir 300 mg capsule [generic] 300 mg By Mouth Twice daily For UTI 300 mg 01/07 Inactiv e 2023 72061 61144 0 Twice daily By Mouth False Cefdinir 300 mg capsule [generic] 300 mg By Mouth Twice daily For UTI 300 mg 01/17 Inactiv e 2023 01269 77133 0 Twice daily By Mouth False Zyrtec 10 mg tablet 10 mg By Mouth Once daily For sinus congestion 10 mg 01/22 Inactiv e 2023 31125 78726 0 Once daily By Mouth False Tobramycin 0.3 %-dexametha sone 0.1 % eye drops,suspe nsion [generic] 0.3-0.1 % Left Eye 4 times a day For eye infection 0.3-0.1 % 02/05 Inactiv e 2023 24032 65161 5 4 times a day Left Eye False Fluconazole 150 mg tablet [generic] 150 mg By Mouth 1 time For yeast infection 150 mg 02/15 Inactiv e 2023 07660 72135 2 1 time By Mouth False Tramadol 50 mg tablet [generic] 1 tab By Mouth Every 4 hours as needed For DX- PAIN 5-10 1 tab 2023 00/00 /0000 Active 2023 04219 05210 0 Every 4 hours as needed By Mouth False Tobramycin 0.3 %-dexametha sone 0.1 % eye drops,suspe nsion [generic] 1 drop Left Eye 4 times a day For Inflammation of left eye 1 drop 05/08 Inactiv e 2023 78790 34641 5 4 times a day Left Eye False Voltaren Arthritis Pain 1 % topical gel 2 gm Topical Twice daily to rigth shoulder for 2 weeks For pain 2 gm 05/08 Inactiv e 2023 84953 03917 1 Twice daily Topica l False Chlorthalid one 25 mg tablet [generic] 12.5mg By Mouth Once daily For HTN 12.5mg 05/06 Inactiv e 2023 16619 29168 0 Once daily By Mouth False Chlorthalid one 25 mg tablet [generic] 12.5mg By Mouth Once daily For HTN 12.5mg 05/07 Inactiv e 2023 14582 19381 0 Once daily By Mouth False Chlorthalid one 25 mg tablet [generic] 05/07 Inactiv e 2023 77722 17614 0 Chlorthalid one 25 mg tablet [generic] 12.5mg By Mouth Once daily For HTN 12.5mg 06/26 Inactiv e 2023 37325 66175 0 Once daily By Mouth False Norvasc 5 mg tablet 5mg By Mouth Once daily, hold medication if systolic is less than 90 For HYPERTENSIVE HEART DISEASE WITHOUT HEART FAILURE 5mg 06/03 Inactiv e 2023 60051 94360 1 Once daily By Mouth I11.9 False Norvasc 5 mg tablet 5mg By Mouth Once daily, hold medication if systolic is less than 90 For HYPERTENSIVE HEART DISEASE WITHOUT HEART FAILURE 5mg 06/03 Inactiv e 2023 39465 48503 1 Once daily By Mouth I11.9 False Norvasc 5 mg tablet 5mg By Mouth Once daily, hold medication if systolic is less than 90 For HYPERTENSIVE HEART DISEASE WITHOUT HEART FAILURE 5mg 06/26 Inactiv e 2023 15781 38661 1 Once daily By Mouth I11.9 False [...] 10 mg 2023 00/00 /0000 Active 2023 31574 10448 1 Once daily By Mouth False DISCONTINUE [...] CAD 81 mg 06/14 Inactiv e 2023 44167 57107 9 Once daily By Mouth False Aspirin 81 mg tablet,camron yed release [generic] 06/14 Inactiv e 2023 99145 42671 9 Aspirin 81 mg tablet,camron yed release [generic] 81 mg By Mouth Once daily Do not crush, chew, or break For CAD 81 mg 06/154 Inactiv e 2023 07179 27745 9 Once daily By Mouth False Cefpodoxime 200 mg tablet [generic] 200mg By Mouth Twice daily For UTI 200mg 07/04 Inactiv e 2023 52738 02142 0 Twice daily By Mouth False Calcium citrate 250 mg tablet [generic] 06/26 Inactiv e 2023 90056 38566 6 Calcium citrate 250 mg tablet [generic] Once daily TAKE 4 TABLETS (1000MG) BY MOUTH For SUPPLEMENT 500 MG 2023 Active 2023 02672 97819 6 Once daily By Mouth False Norvasc 5 mg tablet 7.5 mg By Mouth Once daily Hold medication if SBP <90 For HYPERTENSIVE HEART DISEASE WITHOUT HEART FAILURE 7.5 mg 06/30 Inactiv e 2023 26227 05363 1 Once daily By Mouth I11.9 False Norvasc 5 mg tablet 7.5 mg By Mouth Once daily Hold medication if SBP <90 For HYPERTENSIVE HEART DISEASE WITHOUT HEART FAILURE 7.5 mg 07/06 Inactiv e 2023 19309 05549 1 Once daily By Mouth I11.9 False Simethicone 125 mg capsule [generic] 2 capule By Mouth Twice daily as needed For bloating/gas pain 2 capule 2023 Active 2023 04933 87847 0 Twice daily as needed By Mouth False Cepacol Sore Throat (benzocaine -menthol) 15 mg-2.6 mg lozenges 2 lozenges By Mouth Every 6 hours as needed For sore throat 2 lozenge s 2023 Active 2023 99589 81241 6 Every 6 hours as needed By Mouth False Cefepime 1 gram solution for injection [generic] 1g Intramuscular Every 12 hours 1g intramuscular ly ever 12 hours For UTI 1g 07/06 Inactiv e 2023 51199 97654 4 Every 12 hours Intram uscula r False Cefepime 1 gram solution for injection [generic] 07/06 Inactiv e 2023 94688 20134 4 Cefepime 1 gram solution for injection [generic] 1g Intramuscular Every 12 hours 1g intramuscular ly ever 12 hours For UTI Reconstitute with 2.4 ML of NSS. 1g 07/08 Inactiv e 2023 60351 69059 4 Every 12 hours Intram uscula r False Norvasc 5 mg tablet 07/06 Inactiv e 2023 67152 43465 1 I11.9 Norvasc 5 mg tablet 7.5 mg By Mouth Once daily Hold medication if SBP <90 For HYPERTENSIVE HEART DISEASE WITHOUT HEART FAILURE 7.5 mg 07/18 Inactiv e 2023 30065 50922 1 Once daily By Mouth I11.9 False Cefepime 1 gram solution for injection [generic] 07/08 Inactiv e 2023 09130 04165 4 Cefepime 1 gram solution for injection [generic] 1g Intramuscular Every 12 hours 1g intramuscular ly ever 12 hours For UTI Reconstitute with 2.4 ML of NSS. 1g 07/08 Inactiv e 2023 25847 55752 4 Every 12 hours Intram uscula r False Cefepime 1 gram solution for injection [generic] 07/08 Inactiv e 2023 76149 98894 4 Cefepime 1 gram solution for injection [generic] 1g Intramuscular Every 12 hours 1g intramuscular ly ever 12 hours For UTI Reconstitute with 2.4 ML of NSS. 1g 07/11 Inactiv e 2023 17778 17841 4 Every 12 hours Intram uscula r False Fleet Enema 19 gram-7 gram/118 mL 1 Rectal 1 time For constipation 1 07/16 Inactiv e 2024 91131 17025 6 1 time Rectal False Fleet Enema 19 gram-7 gram/118 mL 1 Rectal 1 time For constipation 1 07/17 Inactiv e 2024 48287 30747 6 1 time Rectal False Norvasc 5 mg tablet 7.5 mg By Mouth Once daily For HYPERTENSIVE HEART DISEASE WITHOUT HEART FAILURE 7.5 mg 2024 00/00 /0000 Active 2024 94143 25128 1 Once daily By Mouth I11.9 False Potassium chloride ER 20 mEq tablet,exte nded release(par t/cryst) [generic] 40 mEq By Mouth 1 time For low potassium prior to surgery 40 mEq 07/18 Inactiv e 2024 37438 02631 1 1 time By Mouth False Potassium chloride ER 20 mEq tablet,exte nded release(par t/cryst) [generic] 40 mEq By Mouth 1 time For low potassium prior to surgery 40 mEq 07/18 Inactiv e 2024 21094 95013 1 1 time By Mouth False Potassium chloride ER 20 mEq tablet,exte nded release(par t/cryst) [generic] 40 mEq By Mouth 1 time For low potassium 40 mEq 07/18 Inactiv e 2024 31434 65577 1 1 time By Mouth False Potassium chloride ER 20 mEq tablet,exte nded release(par t/cryst) [generic] 40 mEq By Mouth 1 time For low potassium 40 mEq 07/18 Inactiv e 2024 30904 55903 1 1 time By Mouth False Potassium chloride ER 20 mEq tablet,exte nded release [generic] 2 By Mouth 1 time For low potassium 2 07/19 Inactiv e 2024 25735 82695 1 1 time By Mouth False Potassium chloride ER 20 mEq tablet,exte nded release [generic] 2 capsules capsules By Mouth 1 time Please send capsule (2 capsules) For low potassium 2 capsule s 07/20 Inactiv e 2024 02201 37510 1 1 time By Mouth False Potassium chloride ER 20 mEq tablet,exte nded release(par t/cryst) [generic] TAKE (2) TABLETS (40MEQ) BY MOUTH X1 DOSE 07/20 Inactiv e 2024 27202 85700 5 Cefepime 1 gram solution for injection [generic] 1 gram Intramuscular Every 12 hours For Urinary Tract Infection 1 gram 07/21 Inactiv e 2024 09068 63813 4 Every 12 hours Intram uscula r False Cefepime 1 gram solution for injection [generic] 07/21 Inactiv e 2024 87567 95494 4 Cefepime 1 gram solution for injection [generic] 1 gram Intramuscular Every 12 hours For Urinary Tract Infection 1 gram 08/04 Active 2024 86797 31121 4 Every 12 hours Intram uscula r False Nystatin 100,000 unit/gram topical cream [generic] 100,000 unit Topical As Needed For DX- EXCORIATION 100,000 unit 12/12 Inactiv e 2023 63233 61791 5 Topica l False Vicks Vaporub 4.7 %-1.2 %-2.6 % topical ointment 4.7-1.2-2.6 Topical 3 times a day As Needed For DX- CONGESTION 4.7-1.2 -2.6 12/12 Inactiv e 2023 57089 68089 1 3 times a day Topica l False Ketoconazol e 2 % shampoo [generic] APPLY SHAMPOO TOPICALLY TO SCALP DURING HAIR WASHINGDX: ELVIA DERM OF SCALP For DX- ELVIA DERM OF SCALP 12/12 Inactiv e 2023 07649 62481 4 Topica l False THERA SILICONE SKIN GUARD Topical Twice daily 1 APPLICATION TOPICALLY IN THE MORNING AND AT BEDTIME TO SCROTUM For DX- PREVENTION 2023 00/00 / Active 2023 Twice daily Topica l False Selenium sulfide 2.5 % lotion [generic] 2.5 % Topical EVERY MONDAY, MONDAY AND MONDAY AFTER SHOWER For DANDRUFF 2.5 % 2023 00/00 / Active 2023 30302 91812 4 3 times a week Topica l False Nystatin (bulk) 100 million unit powder [generic] 100 million Topical Twice daily as needed For EXOCORATION 100 million 12/20 Inactiv e 2023 83191 82440 1 Twice daily as needed Topica l False Ketoconazol e 2 % shampoo [generic] Once daily APPLY SHAMPOO TOPICALLY TO SCALP DURING HAIR WASHING ON SHOWER DAYS- JOSHMICHELLELITTLE, SAT For ELVIA DERM OF SCAP 2 % 2023 Active 2023 68045 67522 4 Once daily Topica l False Nystatin 100,000 unit/gram topical cream [generic] 1 mague Topical Twice daily as needed For EXOCORATION 1 mague 06/05 Inactiv e 2023 79921 07781 5 Twice daily as needed Topica l False Nystatin 100,000 unit/gram topical powder [generic] 100,000 unit Topical Twice daily to scrotum with AM and PM care For Scrotal excoriation 100,000 unit 06/05 Inactiv e 2023 84592 35617 5 Twice daily Topica l False Problems [...] adjustment of urinary device 07/21/2023 Active Z79.01 [employer] or [employer] principal (current) use of anticoagulants 07/21 Active N31.9 [...] weight Temperature SpO2 Blood Sugar Pulse Respirations 56238 216 51361 1 [place]10 [place] [address] 216 97707 2 79.00 mm[Hg] - Sitting 157.00 mm[Hg] - Sitting 73 NI 254.10 NI 36.30 Tympanic 95.00 % 72.00/ min 16.00/min 59353 216 62295 4 98.80 Tympanic 98830 216 80645 2 78.00 mm[Hg] - Sitting 164.00 mm[Hg] - Sitting 49185 217 03768 3 98.20 Tympanic 12789 217 90684 5 73.00 mm[Hg] - Sitting 159.00 mm[Hg] - Sitting 80295 217 62506 9 98.40 Forehead Scan 81646 218 96278 3 97.90 Tympanic 79325 218 84442 5 77.00 mm[Hg] - Sitting 137.00 mm[Hg] - Sitting 32222 219 26698 0 97.70 Tympanic 22719 219 29580 6 97.60 Tympanic 97598 219 19633 4 76.00 mm[Hg] - Sitting 139.00 mm[Hg] - Sitting 41983 219 90710 4 97.80 Forehead Scan 63386 220 81630 9 97.90 Tympanic 94400 220 71072 9 76.00 mm[Hg] - Sitting 138.00 mm[Hg] - Sitting 52049 220 48509 6 98.10 Tympanic 47140 221 92542 5 67.00 mm[Hg] - Sitting 142.00 mm[Hg] - Sitting 26522 221 52607 8 98.20 Tympanic 49536 221 43044 0 98.30 Tympanic 42113 222 99503 7 98.20 Tympanic 18793 222 89860 8 97.90 Tympanic 99626 223 97451 3 98.20 Tympanic 04793 223 30235 3 98.00 Tympanic 89917 224 54973 0 59.00 mm[Hg] - Sitting 111.00 mm[Hg] - Sitting 98.40 Forehead Scan 95.00 % 56.00/ min 18.00/min 83075 224 41005 9 98.20 Forehead Scan 14028 224 97488 3 97.90 Tympanic 17261 225 93280 4 98.20 Tympanic 15671 225 84378 8 97.50 Forehead Scan 68895 228 64739 0 55.00 mm[Hg] - Sitting 118.00 mm[Hg] - Sitting 98.40 Tympanic 69.00/ min 97395 229 28619 8 78.00 mm[Hg] - Sitting 152.00 mm[Hg] - Sitting 27977 230 84281 0 62.00 mm[Hg] - Sitting 122.00 mm[Hg] - Sitting 08611 231 81352 7 72.00 mm[Hg] - Lying Down 140.00 mm[Hg] - Lying Down 26843 101 15220 3 97.70 Forehead Scan 61488 101 10345 1 254.10 NI 69.00/ min 62590 101 35529 9 72.00 mm[Hg] - Sitting 142.00 mm[Hg] - Sitting 97.70 Tympanic 18.00/min 57021 101 17737 3 72.00 mm[Hg] - Lying Down 142.00 mm[Hg] - Lying Down 48817 102 93072 8 68.00 mm[Hg] - Lying Down 152.00 mm[Hg] - Lying Down 51173 103 68450 5 74.00 mm[Hg] - Sitting 158.00 mm[Hg] - Sitting 57403 104 03093 9 78.00 mm[Hg] - Sitting 144.00 mm[Hg] - Sitting 08446 105 30552 5 68.00 mm[Hg] - Sitting 138.00 mm[Hg] - Sitting 33242 106 09864 1 70.00 mm[Hg] - Sitting 138.00 mm[Hg] - Sitting 61495 107 34750 1 67.00 mm[Hg] - Sitting 142.00 mm[Hg] - Sitting 09243 108 79914 0 74.00 mm[Hg] - Sitting 143.00 mm[Hg] - Sitting 61800 110 65712 6 85.00 mm[Hg] - Sitting 160.00 mm[Hg] - Sitting 97.80 Tympanic 93.00 % 76.00/ min 18.00/min 75443 111 74714 1 83.00 mm[Hg] - Sitting 129.00 mm[Hg] - Sitting 98.60 Tympanic 92.00 % 71.00/ min 18.00/min 98004 111 50667 5 60.00 mm[Hg] - Sitting 114.00 mm[Hg] - Sitting 98.70 Tympanic 92.00 % 76.00/ min 18.00/min 42294 112 67010 4 55.00 mm[Hg] - Sitting 125.00 mm[Hg] - Sitting 98.60 Tympanic 91.00 % 68.00/ min 18.00/min 32130 112 19413 9 75.00 mm[Hg] - Sitting 174.00 mm[Hg] [...]
--- OUTSIDE RECORDS SUMMARY | 2024-07-26 11:13 | External Medical Summary | Continuity Of Care Document ---
Author Name Unknown Address [address] [place] [address] Organization [facility] () Care Team Providers [employer] Name Role Phone DO Pritchett Amy Primary Care Provider [phone] Allergies Allergy Reaction Start Date End Date Status AMINOGLYCOSIDES Active CIPRO Active GENTAMICIN Active NSAIDS (NON-STEROIDAL ANTI-INFLAMMATORY DRUG) 0 Active IBUPROFEN Active QUINOLONES Active VALIUM Active Medications Medication Instructions Dosage Start Date End Date Status Order Date Drug Code Frequency Route of Admin Diagnosis Code Substitutions Allowed Spikevax [id number](1 2y up)(PF) 50 mcg/0.5 mL intramuscul ar suspension [COVID [id number](12 up)(andu)(P F)] 0.5mL Intramuscular 1 time Monitory 15 Minutes post injection for adverse effects; record site/temp For COVID 19 PREVENTION 0.5mL 01/02 Inactiv e 2023 60409 30574 4 1 time Intram uscula r False [facility] - Nurse initials indicate verificatio n that [id number] vaccine was administere d by [facility]at jon 1 Intramuscular 1 time ( Indicate vaccine type) For vaccine 1 05/03 Inactiv e 2023 1 time Intram uscula r False Lisinopril 40 mg tablet [generic] TAKE ONE (1) TABLET BY MOUTH IN THE MORNING. For DX- HTN 1 2023 Active 2023 00851 50219 1 Once daily By Mouth False Tizanidine 2 mg tablet [generic] TAKE ONE (1) TABLET BY MOUTH ONCE DAILY For MUSCLE SPASM 1 2023 Active 2023 31443 96322 0 Once daily By Mouth M62.838 False Tamsulosin 0.4 mg capsule [generic] TAKE (1) CAPSULE BY MOUTH AT BEDTIME For SPASMS 1 2023 Active 2023 77715 45566 0 Once daily By Mouth False Aspirin 81 mg tablet Once daily 1 TABLET BY MOUTH IN THE MORNING For DX- CAD DO NOT CRUSH, CHEW OR BREAK 81 mg 06/12 Inactiv e 2023 Once daily By Mouth False Baclofen 20 mg tablet [generic] 20 mg By Mouth 4 times a day For DX- MUSCLE SPASMS 20 mg 12/12 Inactiv e 2023 66088 49928 1 4 times a day By Mouth False Calcium citrate 250 mg tablet Once daily 4 TABLET BY MOUTH For DX- SUPPLEMENT 250 mg calci 12/12 Inactiv e 2023 Once daily By Mouth False Co Q-10 100 mg capsule 100 mg By Mouth Once daily For DX- SUPPLEMENT 100 mg 06/20 Inactiv e 2023 11031 80481 5 Once daily By Mouth False Furosemide 20 mg tablet [generic] 20 mg By Mouth Once daily For DX-CHF 20 mg 12/12 Inactiv e 2023 43329 84812 0 Once daily By Mouth False Gabapentin 300 mg capsule [generic] 300 mg By Mouth 3 times a day For DX- NEUROPATHY 300 mg 12/12 Inactiv e 2023 44841 74692 4 3 times a day By Mouth False Loratadine 10 mg tablet [generic] 10 mg By Mouth Once daily For DX- ALLERGIES 10 mg 2023 Active 2023 76404 63300 1 Once daily By Mouth False Miralax 17 gram/dose oral powder 17 gram/dose By Mouth IN THE MORNING Mix 1 TABLESPOON IN 8 OZ OF FLUID HOLD FOR LOOSE STOOLS For DX- CONSTIPATION 17 gram/do se 12/12 Inactiv e 2023 66380 70094 0 Once daily By Mouth False Paroxetine 30 mg tablet [generic] 30 mg By Mouth Once daily For DX- DEPRESSION 30 mg 2023 00/00 /0000 Active 2023 93980 13771 3 Once daily By Mouth False Potassium citrate ER 15 mEq (1,620 mg) tablet,exte nded release [generic] 15 mEq By Mouth 3 times a day For DX- SUPPLEMENT/DI URETIC USE/ HYPOCITRAUIRA DO NOT CRUSH 15 mEq 12/12 Inactiv e 2023 71850 06946 1 3 times a day By Mouth [...] For DX- DANDRUFF 12/12 Inactiv e 2023 73558 89959 4 3 times a week Topica l False Acetaminoph en 325 mg tablet [generic] TAKE 2 TABS (650MG) BY MOUTH EVERY 4 HOURS NEEDED FOR TEMP >100 NOT TO EXCEED 3GM/24HRS TAKE 2 TABS (650MG) BY MOUTH EVERY 4 HOURS NEEDED FOR TEMP >100 NOT TO EXCEED 3GM/24HRS For DX-FEVER 2 12/12 Inactiv e 2023 69350 65227 0 By Mouth False MILK OF MAGNESIA ADMINISTER 30 ML BY MOUTH ONCE DAILY NEEDED FOR CONSTIPATION X3 DAYS WITH NO BM. For DX- CONSTIPATION 30ML 12/12 Inactiv e 2023 65303 39588 9 By Mouth False Enema Disposable 19 gram-7 gram/118 mL ADMINISTER ONE ENEMA RECTALLY ONCE DAILY NEEDED FOR CONSTIPATION ON DAY 6 OF NO BM For DX- CONSTIPATION 12/12 Inactiv e 2023 53264 33061 1 Rectal False TUMS EXTRA STR 750MG TAKE (1) TABLET BY MOUTH THREE TIMES DAILY NEEDED FOR INDIGESTION For DX- INDIGESTION 1 12/12 Inactiv e 2023 38053 25868 8 By Mouth False Vitamin D3 25 [...] CONSTIPATION 10 mg 12/12 Inactiv e 2023 79243 14807 1 Rectal False Melatonin 3 mg tablet [generic] 3 mg By Mouth As Needed For DX-INSOMMIA 3 mg 12/12 Inactiv e 2023 73220 38068 8 By Mouth False Hydrocortis one 1 % topical cream [generic] 1 % Topical As Needed For DX- PAIN 1 % 12/12 Inactiv e 2023 97449 74909 1 Topica l False HYDROCORTIS ONE/PARMOXI NE [...] 5-10 50 mg 12/20 Inactiv e 2023 25413 74325 0 Every 4 hours as needed By Mouth False Tylenol 325 mg tablet 325 mg By Mouth Every 4 hours as needed For DX- PAIN PRN FOR MILD PAIN, DO NOT EXCEED 3000MG APAP/24 HOURS 325 mg 12/20 Inactiv e 2023 91452 37017 0 Every 4 hours as needed By Mouth False Baclofen 20 mg tablet [generic] 20 mg By Mouth 4 times a day For MUSCLE SPASMS 20 mg 12/20 Inactiv e 2023 39356 48558 1 4 times a day By Mouth False Calcium citrate 250 mg tablet [generic] Once daily TAKE 4 TABLETS (1000MG) BY MOUTH For SUPPLEMENT 1000 MG 06/26 Inactiv e 2023 81907 04830 6 Once daily By Mouth False Dulcolax (bisacodyl) 10 mg rectal suppository 10 mg Rectal Once daily For CONSTIPATION *MAY HOLD FOR LOOSE STOOLS* 10 mg 2023 Active 2023 47285 49414 1 Once daily Rectal False Gabapentin 300 mg capsule [generic] 300 mg By Mouth 3 times a day For NEUROPATHY 300 mg 2023 Active 2023 01837 60839 4 3 times a day By Mouth False Potassium citrate ER 15 mEq (1,620 mg) tablet,exte nded release [generic] 15 mEq By Mouth 3 times a day For SUPPLEMENT/DI URETIC USE/HYPOCITRA URIA 15 mEq 06/11 Inactiv e 2023 70644 36750 1 3 times a day By Mouth False Potassium chloride ER 20 mEq tablet,exte nded release [generic] 20 mEq By Mouth 3 times a day *DO NOT CRUSH, CHEW OR BREAK* For SUPPLEMENT 20 mEq 12/18 Inactiv e 2023 45553 13319 1 3 times a day By Mouth False Tizanidine 4 mg tablet [generic] 4 mg By Mouth Once daily For MUSCLE SPASMS 4 mg 2023 Active 2023 95501 81698 0 Once daily By Mouth False Tylenol 325 mg tablet 2 tabs By Mouth Every 4 hours as needed For Fever >100 DO NOT EXCEED 3000 MG APAP/24 Hours 2 tabs 12/20 Inactiv e 2023 49154 11584 0 Every 4 hours as needed By Mouth False Dulcolax (bisacodyl) 10 mg rectal suppository Daily as needed For Constipation 1 sup 12/20 Inactiv e 2023 44545 24955 1 Daily as needed Rectal False Problems [...] weight Temperature SpO2 Blood Sugar Pulse Respirations 86034 216 34368 1 254.10 NI 65569 216 25880 2 79.00 mm[Hg] - Sitting 157.00 mm[Hg] - Sitting 73 NI 254.10 NI 36.30 Tympanic 95.00 % 72.00/ min 16.00/min 97510 216 34650 4 98.80 Tympanic 27827 216 14588 2 78.00 mm[Hg] - Sitting 164.00 mm[Hg] - Sitting 41678 217 72834 3 98.20 Tympanic 45278 217 18284 5 73.00 mm[Hg] - Sitting 159.00 mm[Hg] - Sitting 25938 217 09655 9 98.40 Forehead Scan 78907 218 23228 3 97.90 Tympanic 09026 218 31405 5 77.00 mm[Hg] - Sitting 137.00 mm[Hg] - Sitting 61585 219 67318 0 97.70 Tympanic 54737 219 31192 6 97.60 Tympanic 11188 219 82673 4 76.00 mm[Hg] - Sitting 139.00 mm[Hg] - Sitting 26201 219 90612 4 97.80 Forehead Scan 92023 220 61360 9 97.90 Tympanic 47504 220 70495 9 76.00 mm[Hg] - Sitting 138.00 mm[Hg] - Sitting 20936 220 67954 6 98.10 Tympanic 63932 221 19726 5 67.00 mm[Hg] - Sitting 142.00 mm[Hg] - Sitting 34078 221 09063 8 98.20 Tympanic 85707 221 70052 0 98.30 Tympanic 05986 222 51966 7 98.20 Tympanic 64330 222 14373 8 97.90 Tympanic 98007 223 70452 3 98.20 Tympanic 35554 223 66765 3 98.00 Tympanic 12665 224 93122 0 59.00 mm[Hg] - Sitting 111.00 mm[Hg] - Sitting 98.40 Forehead Scan 95.00 % 56.00/ min 18.00/min 62897 224 20201 9 98.20 Forehead Scan 98256 224 73019 3 97.90 Tympanic 64170 225 89890 4 98.20 Tympanic 49435 225 25022 8 97.50 Forehead Scan 86346 228 55942 0 55.00 mm[Hg] - Sitting 118.00 mm[Hg] - Sitting 98.40 Tympanic 69.00/ min 77868 229 77981 8 78.00 mm[Hg] - Sitting 152.00 mm[Hg] - Sitting 67365 230 02985 0 62.00 mm[Hg] - Sitting 122.00 mm[Hg] - Sitting 07182 231 54604 7 72.00 mm[Hg] - Lying Down 140.00 mm[Hg] - Lying Down 27884 101 93901 3 97.70 Forehead Scan 49646 101 10759 1 254.10 NI 69.00/ min 07080 101 82244 9 72.00 mm[Hg] - Sitting 142.00 mm[Hg] - Sitting 97.70 Tympanic 18.00/min 85547 101 67488 3 72.00 mm[Hg] - Lying Down 142.00 mm[Hg] - Lying Down 22103 102 18842 8 68.00 mm[Hg] - Lying Down 152.00 mm[Hg] - Lying Down 35606 103 78938 5 74.00 mm[Hg] - Sitting 158.00 mm[Hg] - Sitting 96486 104 78374 9 78.00 mm[Hg] - Sitting 144.00 mm[Hg] - Sitting 75052 105 08024 5 68.00 mm[Hg] - Sitting 138.00 mm[Hg] - Sitting 04452 106 64089 1 70.00 mm[Hg] - Sitting 138.00 mm[Hg] - Sitting 98365 107 28800 1 67.00 mm[Hg] - Sitting 142.00 mm[Hg] - Sitting 13804 108 60309 0 74.00 mm[Hg] - Sitting 143.00 mm[Hg] - Sitting 97273 110 40487 6 85.00 mm[Hg] - Sitting 160.00 mm[Hg] - Sitting 97.80 Tympanic 93.00 % 76.00/ min 18.00/min 36427 111 16228 1 83.00 mm[Hg] - Sitting 129.00 mm[Hg] - Sitting 98.60 Tympanic 92.00 % 71.00/ min 18.00/min 88374 111 32217 5 60.00 mm[Hg] - Sitting 114.00 mm[Hg] - Sitting 98.70 Tympanic 92.00 % 76.00/ min 18.00/min 57462 112 50030 4 55.00 mm[Hg] - Sitting 125.00 mm[Hg] - Sitting 98.60 Tympanic 91.00 % 68.00/ min 18.00/min 21347 112 32307 9 75.00 mm[Hg] - Sitting 174.00 mm[Hg] [...]
--- OUTSIDE RECORDS SUMMARY | 2024-07-26 11:13 | External Medical Summary | Continuity Of Care Document ---
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 Name Role Phone DO Pritchett Amy Primary Care Provider [phone] Allergies Allergy Reaction Start Date End Date Status AMINOGLYCOSIDES Active CIPRO Active GENTAMICIN Active NSAIDS (NON-STEROIDAL ANTI-INFLAMMATORY DRUG) 0 Active IBUPROFEN Active QUINOLONES Active VALIUM Active Medications Medication Instructions Dosage Start Date End Date Status Order Date Drug Code Frequency Route of Admin Diagnosis Code Substitutions Allowed Spikevax [id number](1 2y up)(PF) 50 mcg/0.5 mL intramuscul ar suspension [COVID [id number](12 up)(andu)(P F)] 0.5mL Intramuscular 1 time Monitory 15 Minutes post injection for adverse effects; record site/temp For COVID 19 PREVENTION 0.5mL 01/02 Inactiv e 2023 13451 72532 4 1 time Intram uscula r False [facility] - Nurse initials indicate verificatio n that [id number] vaccine was administere d by [facility] Representat jon 1 Intramuscular 1 time ( Indicate vaccine type) For vaccine 1 05/03 Inactiv e 2023 1 time Intram uscula r False Lisinopril 40 mg tablet [generic] TAKE ONE (1) TABLET BY MOUTH IN THE MORNING. For DX- HTN 1 2023 Active 2023 03585 94764 1 Once daily By Mouth False Tizanidine 2 mg tablet [generic] TAKE ONE (1) TABLET BY MOUTH ONCE DAILY For MUSCLE SPASM 1 2023 Active 2023 83570 30960 0 Once daily By Mouth M62.838 False Tamsulosin 0.4 mg capsule [generic] TAKE (1) CAPSULE BY MOUTH AT BEDTIME For SPASMS 1 2023 Active 2023 27993 06743 0 Once daily By Mouth False Aspirin 81 mg tablet Once daily 1 TABLET BY MOUTH IN THE MORNING For DX- CAD DO NOT CRUSH, CHEW OR BREAK 81 mg 06/12 Inactiv e 2023 Once daily By Mouth False Baclofen 20 mg tablet [generic] 20 mg By Mouth 4 times a day For DX- MUSCLE SPASMS 20 mg 12/12 Inactiv e 2023 69087 61699 1 4 times a day By Mouth False Calcium citrate 250 mg tablet Once daily 4 TABLET BY MOUTH For DX- SUPPLEMENT 250 mg calci 12/12 Inactiv e 2023 Once daily By Mouth False Co Q-10 100 mg capsule 100 mg By Mouth Once daily For DX- SUPPLEMENT 100 mg 06/20 Inactiv e 2023 45499 30692 5 Once daily By Mouth False Furosemide 20 mg tablet [generic] 20 mg By Mouth Once daily For DX-CHF 20 mg 12/12 Inactiv e 2023 55211 08156 0 Once daily By Mouth False Gabapentin 300 mg capsule [generic] 300 mg By Mouth 3 times a day For DX- NEUROPATHY 300 mg 12/12 Inactiv e 2023 58713 72779 4 3 times a day By Mouth False Loratadine 10 mg tablet [generic] 10 mg By Mouth Once daily For DX- ALLERGIES 10 mg 2023 Active 2023 13877 77862 1 Once daily By Mouth False Miralax 17 gram/dose oral powder 17 gram/dose By Mouth IN THE MORNING Mix 1 TABLESPOON IN 8 OZ OF FLUID HOLD FOR LOOSE STOOLS For DX- CONSTIPATION 17 gram/do se 12/12 Inactiv e 2023 22136 06192 0 Once daily By Mouth False Paroxetine 30 mg tablet [generic] 30 mg By Mouth Once daily For DX- DEPRESSION 30 mg 2023 00/00 /0000 Active 2023 22893 51516 3 Once daily By Mouth False Potassium citrate ER 15 mEq (1,620 mg) tablet,exte nded release [generic] 15 mEq By Mouth 3 times a day For DX- SUPPLEMENT/DI URETIC USE/ HYPOCITRAUIRA DO NOT CRUSH 15 mEq 12/12 Inactiv e 2023 71870 62623 1 3 times a day By Mouth [...] For DX- DANDRUFF 12/12 Inactiv e 2023 21042 22627 4 3 times a week Topica l False Acetaminoph en 325 mg tablet [generic] TAKE 2 TABS (650MG) BY MOUTH EVERY 4 HOURS NEEDED FOR TEMP >100 NOT TO EXCEED 3GM/24HRS TAKE 2 TABS (650MG) BY MOUTH EVERY 4 HOURS NEEDED FOR TEMP >100 NOT TO EXCEED 3GM/24HRS For DX-FEVER 2 12/12 Inactiv e 2023 16703 25345 0 By Mouth False MILK OF MAGNESIA ADMINISTER 30 ML BY MOUTH ONCE DAILY NEEDED FOR CONSTIPATION X3 DAYS WITH NO BM. For DX- CONSTIPATION 30ML 12/12 Inactiv e 2023 29874 29438 9 By Mouth False Enema Disposable 19 gram-7 gram/118 mL ADMINISTER ONE ENEMA RECTALLY ONCE DAILY NEEDED FOR CONSTIPATION ON DAY 6 OF NO BM For DX- CONSTIPATION 12/12 Inactiv e 2023 60112 78401 1 Rectal False TUMS EXTRA STR 750MG TAKE (1) TABLET BY MOUTH THREE TIMES DAILY NEEDED FOR INDIGESTION For DX- INDIGESTION 1 12/12 Inactiv e 2023 20367 49437 8 By Mouth False Vitamin D3 25 [...] CONSTIPATION 10 mg 12/12 Inactiv e 2023 60634 41911 1 Rectal False Melatonin 3 mg tablet [generic] 3 mg By Mouth As Needed For DX-INSOMMIA 3 mg 12/12 Inactiv e 2023 11968 53197 8 By Mouth False Hydrocortis one 1 % topical cream [generic] 1 % Topical As Needed For DX- PAIN 1 % 12/12 Inactiv e 2023 36355 66295 1 Topica l False HYDROCORTIS ONE/PARMOXI NE [...] 5-10 50 mg 12/20 Inactiv e 2023 72908 48257 0 Every 4 hours as needed By Mouth False Tylenol 325 mg tablet 325 mg By Mouth Every 4 hours as needed For DX- PAIN PRN FOR MILD PAIN, DO NOT EXCEED 3000MG APAP/24 HOURS 325 mg 12/20 Inactiv e 2023 09929 38648 0 Every 4 hours as needed By Mouth False Baclofen 20 mg tablet [generic] 20 mg By Mouth 4 times a day For MUSCLE SPASMS 20 mg 12/20 Inactiv e 2023 10362 56687 1 4 times a day By Mouth False Calcium citrate 250 mg tablet [generic] Once daily TAKE 4 TABLETS (1000MG) BY MOUTH For SUPPLEMENT 1000 MG 06/26 Inactiv e 2023 67721 57903 6 Once daily By Mouth False Dulcolax (bisacodyl) 10 mg rectal suppository 10 mg Rectal Once daily For CONSTIPATION *MAY HOLD FOR LOOSE STOOLS* 10 mg 2023 Active 2023 94731 30579 1 Once daily Rectal False Gabapentin 300 mg capsule [generic] 300 mg By Mouth 3 times a day For NEUROPATHY 300 mg 2023 Active 2023 25134 24583 4 3 times a day By Mouth False Potassium citrate ER 15 mEq (1,620 mg) tablet,exte nded release [generic] 15 mEq By Mouth 3 times a day For SUPPLEMENT/DI URETIC USE/HYPOCITRA URIA 15 mEq 06/11 Inactiv e 2023 84873 20770 1 3 times a day By Mouth False Potassium chloride ER 20 mEq tablet,exte nded release [generic] 20 mEq By Mouth 3 times a day *DO NOT CRUSH, CHEW OR BREAK* For SUPPLEMENT 20 mEq 12/18 Inactiv e 2023 94317 82093 1 3 times a day By Mouth False Tizanidine 4 mg tablet [generic] 4 mg By Mouth Once daily For MUSCLE SPASMS 4 mg 2023 Active 2023 74790 77933 0 Once daily By Mouth False Tylenol 325 mg tablet 2 tabs By Mouth Every 4 hours as needed For Fever >100 DO NOT EXCEED 3000 MG APAP/24 Hours 2 tabs 12/20 Inactiv e 2023 75149 50562 0 Every 4 hours as needed By Mouth False Dulcolax (bisacodyl) 10 mg rectal suppository Daily as needed For Constipation 1 sup 12/20 Inactiv e 2023 86167 94790 1 Daily as needed Rectal False Fleet Enema 19 gram-7 gram/118 mL 1 Rectal Daily as neededFor Constipation 1 12/20 Inactiv e 2023 09045 71626 6 Daily as needed Rectal False Milk of Magnesia 400 mg/5 mL oral suspension [Magnesium hydroxide] PRN 30ml By Mouth Daily as needed for constipation one time daily if no BM, on day 4 of no BM (PRN refer to instructions) For Constipation For Constipatioin 30ml 12/20 Inactiv e 2023 01913 12244 6 1 time By Mouth False Melatonin 3 mg tablet [generic] 3 mg By Mouth Once daily As Needed For INSOMNIA 3 mg 12/20 Inactiv e 2023 91861 57498 8 Once daily By Mouth False Hydrocortis one 1 % topical cream [generic] 1 % Rectal Four times daily as needed For hemorroid pain 1 % 12/20 Inactiv e 2023 85887 44727 1 Four times daily as needed Rectal False X-STGH ANTACID 750MG CHEW TAKE (1) TABLET BY MOUTH THREE TIMES DAILY NEEDED FOR INDIGESTION 12/20 Inactiv e 2023 14431 16748 4 Three times daily as needed Saline Mist 0.65 % nasal spray aerosol 0.65 % Nares Four times daily as needed For DRYNESS 0.65 % 12/20 Inactiv e 2023 28377 35305 8 Four times daily as needed Nares False Vicks Vaporub 4.7 %-1.2 %-2.6 % topical ointment Apply topically to chest Three times daily as needed For CONGESTION 4.7-1.2 -2.6 12/20 Inactiv e 2023 07714 89647 1 Three times daily as needed Topica l False VITAMIN D3 2000U CAP TAKE ONE (1) CAPSULE BY MOUTH DAILY* DO NOT CRUSH, CHEW OR BREAK* For Supplement 1 capsule 12/19 Inactiv e 2023 97589 43542 0 Once daily By Mouth False Potassium chloride ER 20 mEq tablet,exte nded release(par t/cryst) [generic] TAKE (1) TABLET BY MOUTH THREE TIMES DAILY (MORNING, AFTERNOON, EVENING)*DO NOT CRUSH, CHEW, OR BREAK* For SUPPLEMENT 20 MEQ 06/11 Inactiv e 2023 91917 15771 5 3 times a day By Mouth False Aspirin 81 mg tablet,camron yed release [generic] TAKE ONE (1) TABLET BY MOUTH ONCE DAILY*DO NOT CRUSH, CHEW OR BREAK* For CAD 81 MG 12/22 Inactiv e 2023 43121 52132 0 Once daily By Mouth False Furosemide 20 mg tablet [generic] TAKE 1 AND 1/2 TABLETS (30MG) BY MOUTH ONCE DAILY For CHF 30mg 2023 Active 2023 74586 53795 1 Once daily By Mouth False Polyethylen e glycol 3350 17 gram/dose oral powder [generic] MIX 17 GRAMS (1 CAPFUL) IN 60Z OF LIQUID AND DRINK BY MOUTH ONCE DAILY *HOLD FOR LOOSE STOOLS* For constipation 17 g 2023 Active 2023 05391 47531 3 Once daily By Mouth False Vitamin D3 50 mcg (2,000 unit) capsule Once daily TAKE ONE (1) CAPSULE BY MOUTH DAILY* DO NOT CRUSH, CHEW OR BREAK* For Supplement 1 capsule 02/07 Inactiv e 2023 65072 26157 2 Once daily By Mouth False Fleet Enema 19 gram-7 gram/118 mL 1 Rectal Daily as neededFor Constipation 1 2023 0000 Active 2023 16025 89983 6 Daily as needed Rectal False Tums E-X 300 mg (as calcium carbonate 750 mg) chewable tablet 1 tab By Mouth TAKE (1) TABLET BY MOUTH THREE TIMES DAILY NEEDED FOR INDIGESTION 1 tab 202300 /0000 Active 2023 24588 43667 1 Three times daily as needed By Mouth False Tylenol 325 mg tablet 2 tabs By Mouth Every 4 hours as needed For Fever >100 DO NOT EXCEED 3000 MG APAP/24 Hours 2 tabs 202300 /0000 Active 2023 06999 16621 0 Every 4 hours as needed By Mouth False Vicks Vaporub 4.7 %-1.2 %-2.6 % topical ointment Apply topically to chest Three times daily as needed For CONGESTION topical 202300 Active 2023 82965 47298 1 Three times daily as needed Topica l False Tylenol 325 mg tablet 2 tabs By Mouth Every 4 hours as needed For DX- PAIN PRN FOR MILD PAIN, DO NOT EXCEED 3000MG APAP/24 HOURS 2 tabs 202300 Active 2023 11794 05715 0 Every 4 hours as needed By Mouth False Tramadol 50 mg tablet [generic] 1 tab By Mouth Every 4 hours as needed For DX- PAIN 5-10 1 tab 03/10 Inactiv e 2023 79890 42760 0 Every 4 hours as needed By Mouth False Saline Mist 0.65 % nasal spray aerosol 2 sprays Nares Four times daily as needed For DRYNESS 2 sprays 202300 / Active 2023 49505 30630 8 Four times daily as needed Nares False Dulcolax (bisacodyl) 10 mg rectal suppository Daily as needed For Constipation 1 sup 202300 / Active 2023 91165 83379 1 Daily as needed Rectal False Hydrocortis one-pramoxi ne 1 %-1 % rectal cream [generic] 1 mague Rectal Four times daily as needed For hemorroid pain 1 mague 202300 /0000 Active 2023 58129 27307 4 Four times daily as needed Rectal False Melatonin 3 mg tablet [generic] 1 tab By Mouth At bedtime as needed For INSOMNIA 1 tab 12/24 Inactiv e 2023 79729 44050 8 At bedtime as needed By Mouth False Milk of Magnesia 400 mg/5 mL oral suspension 30ml By Mouth Daily as needed Daily as needed for constipation one time daily if no BM, on day 4 of no BM (PRN refer to instructions) For Constipation For Constipatioin 30ml 2023 Active 2023 01104 17644 2 Daily as needed By Mouth False Baclofen 20 mg tablet [generic] 20 mg By Mouth 4 times a day For MUSCLE SPASMS 20 mg 2023 Active 2023 58020 96919 1 4 times a day By Mouth False Melatonin 3 mg tablet [generic] 1 tab By Mouth At bedtime as needed For INSOMNIA 1 tab 2023 Active 2023 97073 98257 8 At bedtime as needed By Mouth False Bactrim DS 800 mg-160 mg tablet 1 tab By Mouth Twice daily For URINARY TRACT INFECTION, SITE NOT SPECIFIED 1 tab 01/06 Inactiv e 2023 80015 24656 1 Twice daily By Mouth N39.0 False Cefdinir 300 mg capsule [generic] 300 mg By Mouth Twice daily For UTI 300 mg 01/07 Inactiv e 2023 51212 02944 0 Twice daily By Mouth False Cefdinir 300 mg capsule [generic] 300 mg By Mouth Twice daily For UTI 300 mg 01/17 Inactiv e 2023 01698 60581 0 Twice daily By Mouth False Zyrtec 10 mg tablet 10 mg By Mouth Once daily For sinus congestion 10 mg 01/22 Inactiv e 2023 39475 60452 0 Once daily By Mouth False Tobramycin 0.3 %-dexametha sone 0.1 % eye drops,suspe nsion [generic] 0.3-0.1 % Left Eye 4 times a day For eye infection 0.3-0.1 % 02/05 Inactiv e 2023 35772 80037 5 4 times a day Left Eye False Fluconazole 150 mg tablet [generic] 150 mg By Mouth 1 time For yeast infection 150 mg 02/15 Inactiv e 2023 83538 23347 2 1 time By Mouth False Tramadol 50 mg tablet [generic] 1 tab By Mouth Every 4 hours as needed For DX- PAIN 5-10 1 tab 2023 00/00 /0000 Active 2023 57259 10767 0 Every 4 hours as needed By Mouth False Tobramycin 0.3 %-dexametha sone 0.1 % eye drops,suspe nsion [generic] 1 drop Left Eye 4 times a day For Inflammation of left eye 1 drop 05/08 Inactiv e 2023 81556 77109 5 4 times a day Left Eye False Voltaren Arthritis Pain 1 % topical gel 2 gm Topical Twice daily to rigth shoulder for 2 weeks For pain 2 gm 05/08 Inactiv e 2023 67862 90854 1 Twice daily Topica l False Chlorthalid one 25 mg tablet [generic] 12.5mg By Mouth Once daily For HTN 12.5mg 05/06 Inactiv e 2023 90547 18021 0 Once daily By Mouth False Chlorthalid one 25 mg tablet [generic] 12.5mg By Mouth Once daily For HTN 12.5mg 05/07 Inactiv e 2023 61413 30193 0 Once daily By Mouth False Chlorthalid one 25 mg tablet [generic] 05/07 Inactiv e 2023 41262 03245 0 Chlorthalid one 25 mg tablet [generic] 12.5mg By Mouth Once daily For HTN 12.5mg 06/26 Inactiv e 2023 48071 37949 0 Once daily By Mouth False Norvasc 5 mg tablet 5mg By Mouth Once daily, hold medication if systolic is less than 90 For HYPERTENSIVE HEART DISEASE WITHOUT HEART FAILURE 5mg 06/03 Inactiv e 2023 70313 98654 1 Once daily By Mouth I11.9 False Norvasc 5 mg tablet 5mg By Mouth Once daily, hold medication if systolic is less than 90 For HYPERTENSIVE HEART DISEASE WITHOUT HEART FAILURE 5mg 06/03 Inactiv e 2023 77008 04616 1 Once daily By Mouth I11.9 False Norvasc 5 mg tablet 5mg By Mouth Once daily, hold medication if systolic is less than 90 For HYPERTENSIVE HEART DISEASE WITHOUT HEART FAILURE 5mg 06/26 Inactiv e 2023 61892 92866 1 Once daily By Mouth I11.9 False [...] daily For Bladder spasms 10 mg 2023 0000 /0000 Active 2023 22747 82620 1 Once daily By Mouth False DISCONTINUE [...] CAD 81 mg 06/14 Inactiv e 2023 73888 19802 9 Once daily By Mouth False Aspirin 81 mg tablet,camron yed release [generic] 06/14 Inactiv e 2023 39481 08820 9 Problems Code Description Start Date End Date [...] adjustment of urinary device 07/21/2023 Active Z79.01 [employer] (current) use of anticoagulants 07/21 Active N31.9 [...] weight Temperature SpO2 Blood Sugar Pulse Respirations 44374 216 25921 1 254.10 NI 9[address]94 216 70327 2 79.00 mm[Hg] - Sitting 157.00 mm[Hg] - Sitting 73 NI 254.10 NI 36.30 Tympanic 95.00 % 72.00/ min 16.00/min 02749 216 42234 4 98.80 Tympanic 74488 216 68886 2 78.00 mm[Hg] - Sitting 164.00 mm[Hg] - Sitting 02874 217 40034 3 98.20 Tympanic 48835 217 52199 5 73.00 mm[Hg] - Sitting 159.00 mm[Hg] - Sitting 57104 217 92522 9 98.40 Forehead Scan 66329 218 62882 3 97.90 Tympanic 31649 218 64114 5 77.00 mm[Hg] - Sitting 137.00 mm[Hg] - Sitting 01545 219 21277 0 97.70 Tympanic 19294 219 78415 6 97.60 Tympanic 96848 219 02836 4 76.00 mm[Hg] - Sitting 139.00 mm[Hg] - Sitting 42888 219 52074 4 97.80 Forehead Scan 93183 220 57886 9 97.90 Tympanic 18162 220 11402 9 76.00 mm[Hg] - Sitting 138.00 mm[Hg] - Sitting 49207 220 64262 6 98.10 Tympanic 44927 221 98246 5 67.00 mm[Hg] - Sitting 142.00 mm[Hg] - Sitting 32169 221 05916 8 98.20 Tympanic 99541 221 85150 0 98.30 Tympanic 54275 222 56847 7 98.20 Tympanic 12722 222 57106 8 97.90 Tympanic 72552 223 80315 3 98.20 Tympanic 76036 223 32949 3 98.00 Tympanic 31056 224 52333 0 59.00 mm[Hg] - Sitting 111.00 mm[Hg] - Sitting 98.40 Forehead Scan 95.00 % 56.00/ min 18.00/min 64861 224 20841 9 98.20 Forehead Scan 65882 224 79663 3 97.90 Tympanic 78782 225 51946 4 98.20 Tympanic 15436 225 66716 8 97.50 Forehead Scan 25798 228 65849 0 55.00 mm[Hg] - Sitting 118.00 mm[Hg] - Sitting 98.40 Tympanic 69.00/ min 28597 229 47489 8 78.00 mm[Hg] - Sitting 152.00 mm[Hg] - Sitting 58875 230 43721 0 62.00 mm[Hg] - Sitting 122.00 mm[Hg] - Sitting 36676 231 00534 7 72.00 mm[Hg] - Lying Down 140.00 mm[Hg] - Lying Down 54563 101 74198 3 97.70 Forehead Scan 97955 101 29337 1 254.10 NI 69.00/ min 06910 101 13499 9 72.00 mm[Hg] - Sitting 142.00 mm[Hg] - Sitting 97.70 Tympanic 18.00/min 86560 101 24947 3 72.00 mm[Hg] - Lying Down 142.00 mm[Hg] - Lying Down 01153 102 13981 8 68.00 mm[Hg] - Lying Down 152.00 mm[Hg] - Lying Down 49651 103 71620 5 74.00 mm[Hg] - Sitting 158.00 mm[Hg] - Sitting 92165 104 02055 9 78.00 mm[Hg] - Sitting 144.00 mm[Hg] - Sitting 30679 105 29442 5 68.00 mm[Hg] - Sitting 138.00 mm[Hg] - Sitting 71669 106 24348 1 70.00 mm[Hg] - Sitting 138.00 mm[Hg] - Sitting 96672 107 11329 1 67.00 mm[Hg] - Sitting 142.00 mm[Hg] - Sitting 97469 108 77591 0 74.00 mm[Hg] - Sitting 143.00 mm[Hg] - Sitting 74831 110 66146 6 85.00 mm[Hg] - Sitting 160.00 mm[Hg] - Sitting 97.80 Tympanic 93.00 % 76.00/ min 18.00/min 27925 111 31198 1 83.00 mm[Hg] - Sitting 129.00 mm[Hg] - Sitting 98.60 Tympanic 92.00 % 71.00/ min 18.00/min 92852 111 84717 5 60.00 mm[Hg] - Sitting 114.00 mm[Hg] - Sitting 98.70 Tympanic 92.00 % 76.00/ min 18.00/min 06695 112 23820 4 55.00 mm[Hg] - Sitting 125.00 mm[Hg] - Sitting 98.60 Tympanic 91.00 % 68.00/ min 18.00/min Immunizations Vaccine Date Status COVID-19 [...]
--- OUTSIDE RECORDS SUMMARY | 2024-07-26 11:14 | External Medical Summary | Continuity Of Care Document ---
Author Name Unknown Address [address] [place] [address] Organization [facility] () Care Team Providers Care General Magistrate Name Role Phone DO Pritchett Amy Primary Care Provider [phone] Allergies Allergy Reaction Start Date End Date Status AMINOGLYCOSIDES Active CIPRO Active GENTAMICIN Active NSAIDS (NON-STEROIDAL ANTI-INFLAMMATORY DRUG) 0 Active IBUPROFEN Active QUINOLONES Active VALIUM Active Medications Medication Instructions Dosage Start Date End Date Status Order Date Drug Code Frequency Route of Admin Diagnosis Code Substitutions Allowed Spikevax [id number](1 2y up)(PF) 50 mcg/0.5 mL intramuscul ar suspension [COVID [id number](12 up)(andu)(P F)] 0.5mL Intramuscular 1 time Monitory 15 Minutes post injection for adverse effects; record site/temp For COVID 19 PREVENTION 0.5mL 01/02 Inactiv e 2023 48949 80401 4 1 time Intram uscula r False [facility] - Nurse initials indicate verificatio n that [id number] vaccine was administere d by [facility] Representat jon 1 Intramuscular 1 time ( Indicate vaccine type) For vaccine 1 05/03 Inactiv e 2023 1 time Intram uscula r False Lisinopril 40 mg tablet [generic] TAKE ONE (1) TABLET BY MOUTH IN THE MORNING. For DX- HTN 1 2023 Active 2023 50729 80980 1 Once daily By Mouth False Tizanidine 2 mg tablet [generic] TAKE ONE (1) TABLET BY MOUTH ONCE DAILY For MUSCLE SPASM 1 2023 Active 2023 46997 69245 0 Once daily By Mouth M62.838 False Tamsulosin 0.4 mg capsule [generic] TAKE (1) CAPSULE BY MOUTH AT BEDTIME For SPASMS 1 2023 Active 2023 07641 70176 0 Once daily By Mouth False Aspirin 81 mg tablet Once daily 1 TABLET BY MOUTH IN THE MORNING For DX- CAD DO NOT CRUSH, CHEW OR BREAK 81 mg 06/12 Inactiv e 2023 Once daily By Mouth False Baclofen 20 mg tablet [generic] 20 mg By Mouth 4 times a day For DX- MUSCLE SPASMS 20 mg 12/12 Inactiv e 2023 12903 93955 1 4 times a day By Mouth False Calcium citrate 250 mg tablet Once daily 4 TABLET BY MOUTH For DX- SUPPLEMENT 250 mg calci 12/12 Inactiv e 2023 Once daily By Mouth False Co Q-10 100 mg capsule 100 mg By Mouth Once daily For DX- SUPPLEMENT 100 mg 06/20 Inactiv e 2023 33279 12137 5 Once daily By Mouth False Furosemide 20 mg tablet [generic] 20 mg By Mouth Once daily For DX-CHF 20 mg 12/12 Inactiv e 2023 12858 03841 0 Once daily By Mouth False Gabapentin 300 mg capsule [generic] 300 mg By Mouth 3 times a day For DX- NEUROPATHY 300 mg 12/12 Inactiv e 2023 57060 47380 4 3 times a day By Mouth False Loratadine 10 mg tablet [generic] 10 mg By Mouth Once daily For DX- ALLERGIES 10 mg 2023 Active 2023 40547 48337 1 Once daily By Mouth False Miralax 17 gram/dose oral powder 17 gram/dose By Mouth IN THE MORNING Mix 1 TABLESPOON IN 8 OZ OF FLUID HOLD FOR LOOSE STOOLS For DX- CONSTIPATION 17 gram/do se 12/12 Inactiv e 2023 93248 03035 0 Once daily By Mouth False Paroxetine 30 mg tablet [generic] 30 mg By Mouth Once daily For DX- DEPRESSION 30 mg 2023 00/00 /0000 Active 2023 86191 18874 3 Once daily By Mouth False Potassium citrate ER 15 mEq (1,620 mg) tablet,exte nded release [generic] 15 mEq By Mouth 3 times a day For DX- SUPPLEMENT/DI URETIC USE/ HYPOCITRAUIRA DO NOT CRUSH 15 mEq 12/12 Inactiv e 2023 04488 84849 1 3 times a day By Mouth [...] For DX- DANDRUFF 12/12 Inactiv e 2023 05774 73840 4 3 times a week Topica l False Acetaminoph en 325 mg tablet [generic] TAKE 2 TABS (650MG) BY MOUTH EVERY 4 HOURS NEEDED FOR TEMP >100 NOT TO EXCEED 3GM/24HRS TAKE 2 TABS (650MG) BY MOUTH EVERY 4 HOURS NEEDED FOR TEMP >100 NOT TO EXCEED 3GM/24HRS For DX-FEVER 2 12/12 Inactiv e 2023 54362 58594 0 By Mouth False MILK OF MAGNESIA ADMINISTER 30 ML BY MOUTH ONCE DAILY NEEDED FOR CONSTIPATION X3 DAYS WITH NO BM. For DX- CONSTIPATION 30ML 12/12 Inactiv e 2023 92574 24959 9 By Mouth False Enema Disposable 19 gram-7 gram/118 mL ADMINISTER ONE ENEMA RECTALLY ONCE DAILY NEEDED FOR CONSTIPATION ON DAY 6 OF NO BM For DX- CONSTIPATION 12/12 Inactiv e 2023 60029 80490 1 Rectal False TUMS EXTRA STR 750MG TAKE (1) TABLET BY MOUTH THREE TIMES DAILY NEEDED FOR INDIGESTION For DX- INDIGESTION 1 12/12 Inactiv e 2023 45999 32992 8 By Mouth False Vitamin D3 25 [...] CONSTIPATION 10 mg 12/12 Inactiv e 2023 34072 78516 1 Rectal False Melatonin 3 mg tablet [generic] 3 mg By Mouth As Needed For DX-INSOMMIA 3 mg 12/12 Inactiv e 2023 47466 13284 8 By Mouth False Hydrocortis one 1 % topical cream [generic] 1 % Topical As Needed For DX- PAIN 1 % 12/12 Inactiv e 2023 43925 91939 1 Topica l False HYDROCORTIS ONE/PARMOXI NE [...] 5-10 50 mg 12/20 Inactiv e 2023 85700 48078 0 Every 4 hours as needed By Mouth False Tylenol 325 mg tablet 325 mg By Mouth Every 4 hours as needed For DX- PAIN PRN FOR MILD PAIN, DO NOT EXCEED 3000MG APAP/24 HOURS 325 mg 12/20 Inactiv e 2023 29799 55560 0 Every 4 hours as needed By Mouth False Baclofen 20 mg tablet [generic] 20 mg By Mouth 4 times a day For MUSCLE SPASMS 20 mg 12/20 Inactiv e 2023 76992 63347 1 4 times a day By Mouth False Calcium citrate 250 mg tablet [generic] Once daily TAKE 4 TABLETS (1000MG) BY MOUTH For SUPPLEMENT 1000 MG 06/26 Inactiv e 2023 54860 17098 6 Once daily By Mouth False Dulcolax (bisacodyl) 10 mg rectal suppository 10 mg Rectal Once daily For CONSTIPATION *MAY HOLD FOR LOOSE STOOLS* 10 mg 2023 Active 2023 12683 29118 1 Once daily Rectal False Gabapentin 300 mg capsule [generic] 300 mg By Mouth 3 times a day For NEUROPATHY 300 mg 2023 Active 2023 71121 03938 4 3 times a day By Mouth False Potassium citrate ER 15 mEq (1,620 mg) tablet,exte nded release [generic] 15 mEq By Mouth 3 times a day For SUPPLEMENT/DI URETIC USE/HYPOCITRA URIA 15 mEq 06/11 Inactiv e 2023 97011 21380 1 3 times a day By Mouth False Potassium chloride ER 20 mEq tablet,exte nded release [generic] 20 mEq By Mouth 3 times a day *DO NOT CRUSH, CHEW OR BREAK* For SUPPLEMENT 20 mEq 12/18 Inactiv e 2023 88384 88180 1 3 times a day By Mouth False Tizanidine 4 mg tablet [generic] 4 mg By Mouth Once daily For MUSCLE SPASMS 4 mg 2023 Active 2023 20800 48429 0 Once daily By Mouth False Tylenol 325 mg tablet 2 tabs By Mouth Every 4 hours as needed For Fever >100 DO NOT EXCEED 3000 MG APAP/24 Hours 2 tabs 12/20 Inactiv e 2023 80784 21815 0 Every 4 hours as needed By Mouth False Dulcolax (bisacodyl) 10 mg rectal suppository Daily as needed For Constipation 1 sup 12/20 Inactiv e 2023 05902 32473 1 Daily as needed Rectal False Fleet Enema 19 gram-7 gram/118 mL 1 Rectal Daily as neededFor Constipation 1 12/20 Inactiv e 2023 30092 20710 6 Daily as needed Rectal False Milk of Magnesia 400 mg/5 mL oral suspension [Magnesium hydroxide] PRN 30ml By Mouth Daily as needed for constipation one time daily if no BM, on day 4 of no BM (PRN refer to instructions) For Constipation For Constipatioin 30ml 12/20 Inactiv e 2023 03513 40931 6 1 time By Mouth False Melatonin 3 mg tablet [generic] 3 mg By Mouth Once daily As Needed For INSOMNIA 3 mg 12/20 Inactiv e 2023 25761 94419 8 Once daily By Mouth False Hydrocortis one 1 % topical cream [generic] 1 % Rectal Four times daily as needed For hemorroid pain 1 % 12/20 Inactiv e 2023 05448 17764 1 Four times daily as needed Rectal False X-STGH ANTACID 750MG CHEW TAKE (1) TABLET BY MOUTH THREE TIMES DAILY NEEDED FOR INDIGESTION 12/20 Inactiv e 2023 84809 38361 4 Three times daily as needed Saline Mist 0.65 % nasal spray aerosol 0.65 % Nares Four times daily as needed For DRYNESS 0.65 % 12/20 Inactiv e 2023 72785 27776 8 Four times daily as needed Nares False Vicks Vaporub 4.7 %-1.2 %-2.6 % topical ointment Apply topically to chest Three times daily as needed For CONGESTION 4.7-1.2 -2.6 12/20 Inactiv e 2023 67495 36793 1 Three times daily as needed Topica l False VITAMIN D3 2000U CAP TAKE ONE (1) CAPSULE BY MOUTH DAILY* DO NOT CRUSH, CHEW OR BREAK* For Supplement 1 capsule 12/19 Inactiv e 2023 83009 71378 0 Once daily By Mouth False Potassium chloride ER 20 mEq tablet,exte nded release(par t/cryst) [generic] TAKE (1) TABLET BY MOUTH THREE TIMES DAILY (MORNING, AFTERNOON, EVENING)*DO NOT CRUSH, CHEW, OR BREAK* For SUPPLEMENT 20 MEQ 06/11 Inactiv e 2023 74295 87781 5 3 times a day By Mouth False Aspirin 81 mg tablet,camron yed release [generic] TAKE ONE (1) TABLET BY MOUTH ONCE DAILY*DO NOT CRUSH, CHEW OR BREAK* For CAD 81 MG 12/22 Inactiv e 2023 57607 85979 0 Once daily By Mouth False Furosemide 20 mg tablet [generic] TAKE 1 AND 1/2 TABLETS (30MG) BY MOUTH ONCE DAILY For CHF 30mg 2023 Active 2023 60351 43398 1 Once daily By Mouth False Polyethylen e glycol 3350 17 gram/dose oral powder [generic] MIX 17 GRAMS (1 CAPFUL) IN 60Z OF LIQUID AND DRINK BY MOUTH ONCE DAILY *HOLD FOR LOOSE STOOLS* For constipation 17 g 2023 Active 2023 61912 18899 3 Once daily By Mouth False Vitamin D3 50 mcg (2,000 unit) capsule Once daily TAKE ONE (1) CAPSULE BY MOUTH DAILY* DO NOT CRUSH, CHEW OR BREAK* For Supplement 1 capsule 02/07 Inactiv e 2023 90341 52281 2 Once daily By Mouth False Fleet Enema 19 gram-7 gram/118 mL 1 Rectal Daily as neededFor Constipation 1 2023 0000 Active 2023 73663 53234 6 Daily as needed Rectal False Tums E-X 300 mg (as calcium carbonate 750 mg) chewable tablet 1 tab By Mouth TAKE (1) TABLET BY MOUTH THREE TIMES DAILY NEEDED FOR INDIGESTION 1 tab 202300 /0000 Active 2023 35440 20541 1 Three times daily as needed By Mouth False Tylenol 325 mg tablet 2 tabs By Mouth Every 4 hours as needed For Fever >100 DO NOT EXCEED 3000 MG APAP/24 Hours 2 tabs 202300 /0000 Active 2023 98548 41236 0 Every 4 hours as needed By Mouth False Vicks Vaporub 4.7 %-1.2 %-2.6 % topical ointment Apply topically to chest Three times daily as needed For CONGESTION topical 202300 Active 2023 43034 27762 1 Three times daily as needed Topica l False Tylenol 325 mg tablet 2 tabs By Mouth Every 4 hours as needed For DX- PAIN PRN FOR MILD PAIN, DO NOT EXCEED 3000MG APAP/24 HOURS 2 tabs 202300 Active 2023 53260 47055 0 Every 4 hours as needed By Mouth False Tramadol 50 mg tablet [generic] 1 tab By Mouth Every 4 hours as needed For DX- PAIN 5-10 1 tab 03/10 Inactiv e 2023 82659 45583 0 Every 4 hours as needed By Mouth False Saline Mist 0.65 % nasal spray aerosol 2 sprays Nares Four times daily as needed For DRYNESS 2 sprays 202300 / Active 2023 39878 69314 8 Four times daily as needed Nares False Dulcolax (bisacodyl) 10 mg rectal suppository Daily as needed For Constipation 1 sup 202300 / Active 2023 85317 52820 1 Daily as needed Rectal False Hydrocortis one-pramoxi ne 1 %-1 % rectal cream [generic] 1 mague Rectal Four times daily as needed For hemorroid pain 1 mague 202300 /0000 Active 2023 89082 34256 4 Four times daily as needed Rectal False Melatonin 3 mg tablet [generic] 1 tab By Mouth At bedtime as needed For INSOMNIA 1 tab 12/24 Inactiv e 2023 81510 96559 8 At bedtime as needed By Mouth False Milk of Magnesia 400 mg/5 mL oral suspension 30ml By Mouth Daily as needed Daily as needed for constipation one time daily if no BM, on day 4 of no BM (PRN refer to instructions) For Constipation For Constipatioin 30ml 2023 Active 2023 78787 88714 2 Daily as needed By Mouth False Baclofen 20 mg tablet [generic] 20 mg By Mouth 4 times a day For MUSCLE SPASMS 20 mg 2023 Active 2023 61600 33186 1 4 times a day By Mouth False Melatonin 3 mg tablet [generic] 1 tab By Mouth At bedtime as needed For INSOMNIA 1 tab 2023 Active 2023 31360 23418 8 At bedtime as needed By Mouth False Bactrim DS 800 mg-160 mg tablet 1 tab By Mouth Twice daily For URINARY TRACT INFECTION, SITE NOT SPECIFIED 1 tab 01/06 Inactiv e 2023 37189 13533 1 Twice daily By Mouth N39.0 False Cefdinir 300 mg capsule [generic] 300 mg By Mouth Twice daily For UTI 300 mg 01/07 Inactiv e 2023 41355 32502 0 Twice daily By Mouth False Cefdinir 300 mg capsule [generic] 300 mg By Mouth Twice daily For UTI 300 mg 01/17 Inactiv e 2023 44870 97730 0 Twice daily By Mouth False Zyrtec 10 mg tablet 10 mg By Mouth Once daily For sinus congestion 10 mg 01/22 Inactiv e 2023 13874 74797 0 Once daily By Mouth False Tobramycin 0.3 %-dexametha sone 0.1 % eye drops,suspe nsion [generic] 0.3-0.1 % Left Eye 4 times a day For eye infection 0.3-0.1 % 02/05 Inactiv e 2023 25598 29465 5 4 times a day Left Eye False Fluconazole 150 mg tablet [generic] 150 mg By Mouth 1 time For yeast infection 150 mg 02/15 Inactiv e 2023 11767 90197 2 1 time By Mouth False Tramadol 50 mg tablet [generic] 1 tab By Mouth Every 4 hours as needed For DX- PAIN 5-10 1 tab 2023 00/00 /0000 Active 2023 86628 47432 0 Every 4 hours as needed By Mouth False Tobramycin 0.3 %-dexametha sone 0.1 % eye drops,suspe nsion [generic] 1 drop Left Eye 4 times a day For Inflammation of left eye 1 drop 05/08 Inactiv e 2023 12807 71621 5 4 times a day Left Eye False Voltaren Arthritis Pain 1 % topical gel 2 gm Topical Twice daily to rigth shoulder for 2 weeks For pain 2 gm 05/08 Inactiv e 2023 50794 51813 1 Twice daily Topica l False Chlorthalid one 25 mg tablet [generic] 12.5mg By Mouth Once daily For HTN 12.5mg 05/06 Inactiv e 2023 15670 55068 0 Once daily By Mouth False Chlorthalid one 25 mg tablet [generic] 12.5mg By Mouth Once daily For HTN 12.5mg 05/07 Inactiv e 2023 17760 28071 0 Once daily By Mouth False Chlorthalid one 25 mg tablet [generic] 05/07 Inactiv e 2023 73592 55033 0 Chlorthalid one 25 mg tablet [generic] 12.5mg By Mouth Once daily For HTN 12.5mg 06/26 Inactiv e 2023 56365 78437 0 Once daily By Mouth False Norvasc 5 mg tablet 5mg By Mouth Once daily, hold medication if systolic is less than 90 For HYPERTENSIVE HEART DISEASE WITHOUT HEART FAILURE 5mg 06/03 Inactiv e 2023 27574 22259 1 Once daily By Mouth I11.9 False Norvasc 5 mg tablet 5mg By Mouth Once daily, hold medication if systolic is less than 90 For HYPERTENSIVE HEART DISEASE WITHOUT HEART FAILURE 5mg 06/03 Inactiv e 2023 66177 20538 1 Once daily By Mouth I11.9 False Norvasc 5 mg tablet 5mg By Mouth Once daily, hold medication if systolic is less than 90 For HYPERTENSIVE HEART DISEASE WITHOUT HEART FAILURE 5mg 06/26 Inactiv e 2023 00669 58274 1 Once daily By Mouth I11.9 False [...] 10 mg 2023 00/00 /0000 Active 2023 64270 63710 1 Once daily By Mouth False DISCONTINUE [...] CAD 81 mg 06/14 Inactiv e 2023 51848 27766 9 Once daily By Mouth False Aspirin 81 mg tablet,camron yed release [generic] 06/14 Inactiv e 2023 91161 16790 9 Aspirin 81 mg tablet,camron yed release [generic] 81 mg By Mouth Once daily Do not crush, chew, or break For CAD 81 mg 06/154 Inactiv e 2023 38777 79931 9 Once daily By Mouth False Cefpodoxime 200 mg tablet [generic] 200mg By Mouth Twice daily For UTI 200mg 07/04 Inactiv e 2023 86645 02072 0 Twice daily By Mouth False Calcium citrate 250 mg tablet [generic] 06/26 Inactiv e 2023 28200 29540 6 Calcium citrate 250 mg tablet [generic] Once daily TAKE 4 TABLETS (1000MG) BY MOUTH For SUPPLEMENT 500 MG 2023 Active 2023 29401 48267 6 Once daily By Mouth False Norvasc 5 mg tablet 7.5 mg By Mouth Once daily Hold medication if SBP <90 For HYPERTENSIVE HEART DISEASE WITHOUT HEART FAILURE 7.5 mg 06/30 Inactiv e 2023 69463 03424 1 Once daily By Mouth I11.9 False Norvasc 5 mg tablet 7.5 mg By Mouth Once daily Hold medication if SBP <90 For HYPERTENSIVE HEART DISEASE WITHOUT HEART FAILURE 7.5 mg 07/06 Inactiv e 2023 18151 78410 1 Once daily By Mouth I11.9 False Simethicone 125 mg capsule [generic] 2 capule By Mouth Twice daily as needed For bloating/gas pain 2 capule 2023 Active 2023 75184 31606 0 Twice daily as needed By Mouth False Cepacol Sore Throat (benzocaine -menthol) 15 mg-2.6 mg lozenges 2 lozenges By Mouth Every 6 hours as needed For sore throat 2 lozenge s 2023 Active 2023 15076 09530 6 Every 6 hours as needed By Mouth False Cefepime 1 gram solution for injection [generic] 1g Intramuscular Every 12 hours 1g intramuscular ly ever 12 hours For UTI 1g 07/06 Inactiv e 2023 27489 55159 4 Every 12 hours Intram uscula r False Cefepime 1 gram solution for injection [generic] 07/06 Inactiv e 2023 37865 07643 4 Cefepime 1 gram solution for injection [generic] 1g Intramuscular Every 12 hours 1g intramuscular ly ever 12 hours For UTI Reconstitute with 2.4 ML of NSS. 1g 07/08 Inactiv e 2023 81241 79277 4 Every 12 hours Intram uscula r False Norvasc 5 mg tablet 07/06 Inactiv e 2023 21049 51781 1 I11.9 Norvasc 5 mg tablet 7.5 mg By Mouth Once daily Hold medication if SBP <90 For HYPERTENSIVE HEART DISEASE WITHOUT HEART FAILURE 7.5 mg 07/18 Inactiv e 2023 61486 10773 1 Once daily By Mouth I11.9 False Cefepime 1 gram solution for injection [generic] 07/08 Inactiv e 2023 20886 15072 4 Cefepime 1 gram solution for injection [generic] 1g Intramuscular Every 12 hours 1g intramuscular ly ever 12 hours For UTI Reconstitute with 2.4 ML of NSS. 1g 07/08 Inactiv e 2023 73650 24695 4 Every 12 hours Intram uscula r False Cefepime 1 gram solution for injection [generic] 07/08 Inactiv e 2023 99651 67818 4 Cefepime 1 gram solution for injection [generic] 1g Intramuscular Every 12 hours 1g intramuscular ly ever 12 hours For UTI Reconstitute with 2.4 ML of NSS. 1g 07/11 Inactiv e 2023 33831 37135 4 Every 12 hours Intram uscula r False Fleet Enema 19 gram-7 gram/118 mL 1 Rectal 1 time For constipation 1 07/16 Inactiv e 2024 61903 10522 6 1 time Rectal False Fleet Enema 19 gram-7 gram/118 mL 1 Rectal 1 time For constipation 1 07/17 Inactiv e 2024 81710 34767 6 1 time Rectal False Norvasc 5 mg tablet 7.5 mg By Mouth Once daily For HYPERTENSIVE HEART DISEASE WITHOUT HEART FAILURE 7.5 mg 2024 00/00 /0000 Active 2024 75424 94661 1 Once daily By Mouth I11.9 False Potassium chloride ER 20 mEq tablet,exte nded release(par t/cryst) [generic] 40 mEq By Mouth 1 time For low potassium prior to surgery 40 mEq 07/18 Inactiv e 2024 91749 30815 1 1 time By Mouth False Potassium chloride ER 20 mEq tablet,exte nded release(par t/cryst) [generic] 40 mEq By Mouth 1 time For low potassium prior to surgery 40 mEq 07/18 Inactiv e 2024 82019 38124 1 1 time By Mouth False Potassium chloride ER 20 mEq tablet,exte nded release(par t/cryst) [generic] 40 mEq By Mouth 1 time For low potassium 40 mEq 07/18 Inactiv e 2024 98749 98172 1 1 time By Mouth False Potassium chloride ER 20 mEq tablet,exte nded release(par t/cryst) [generic] 40 mEq By Mouth 1 time For low potassium 40 mEq 07/18 Inactiv e 2024 42523 07174 1 1 time By Mouth False Potassium chloride ER 20 mEq tablet,exte nded release [generic] 2 By Mouth 1 time For low potassium 2 07/19 Inactiv e 2024 27865 21651 1 1 time By Mouth False Potassium chloride ER 20 mEq tablet,exte nded release [generic] 2 capsules capsules By Mouth 1 time Please send capsule (2 capsules) For low potassium 2 capsule s 07/20 Inactiv e 2024 57721 68006 1 1 time By Mouth False Potassium chloride ER 20 mEq tablet,exte nded release(par t/cryst) [generic] TAKE (2) TABLETS (40MEQ) BY MOUTH X1 DOSE 07/20 Inactiv e 2024 82743 15139 5 Cefepime 1 gram solution for injection [generic] 1 gram Intramuscular Every 12 hours For Urinary Tract Infection 1 gram 07/21 Inactiv e 2024 53737 70678 4 Every 12 hours Intram uscula r False Cefepime 1 gram solution for injection [generic] 07/21 Inactiv e 2024 36724 38852 4 Cefepime 1 gram solution for injection [generic] 1 gram Intramuscular Every 12 hours For Urinary Tract Infection 1 gram 08/04 Active 2024 24176 93753 4 Every 12 hours Intram uscula r False Nystatin 100,000 unit/gram topical cream [generic] 100,000 unit Topical As Needed For DX- EXCORIATION 100,000 unit 12/12 Inactiv e 2023 57196 54044 5 Topica l False Vicks Vaporub 4.7 %-1.2 %-2.6 % topical ointment 4.7-1.2-2.6 Topical 3 times a day As Needed For DX- CONGESTION 4.7-1.2 -2.6 12/12 Inactiv e 2023 07568 43752 1 3 times a day Topica l False Ketoconazol e 2 % shampoo [generic] APPLY SHAMPOO TOPICALLY TO SCALP DURING HAIR WASHINGDX: ELVIA DERM OF SCALP For DX- ELVIA DERM OF SCALP 12/12 Inactiv e 2023 70601 16940 4 Topica l False THERA SILICONE SKIN GUARD Topical Twice daily 1 APPLICATION TOPICALLY IN THE MORNING AND AT BEDTIME TO SCROTUM For DX- PREVENTION 2023 00/00 / Active 2023 Twice daily Topica l False Selenium sulfide 2.5 % lotion [generic] 2.5 % Topical EVERY MONDAY, MONDAY AND MONDAY AFTER SHOWER For DANDRUFF 2.5 % 2023 00/00 / Active 2023 90692 58061 4 3 times a week Topica l False Nystatin (bulk) 100 million unit powder [generic] 100 million Topical Twice daily as needed For EXOCORATION 100 million 12/20 Inactiv e 2023 55260 35962 1 Twice daily as needed Topica l False Ketoconazol e 2 % shampoo [generic] Once daily APPLY SHAMPOO TOPICALLY TO SCALP DURING HAIR WASHING ON SHOWER DAYS- JOSHMICHELLELITTLE, SAT For ELVIA DERM OF SCAP 2 % 2023 Active 2023 68571 96082 4 Once daily Topica l False Nystatin 100,000 unit/gram topical cream [generic] 1 mague Topical Twice daily as needed For EXOCORATION 1 mague 06/05 Inactiv e 2023 50687 60609 5 Twice daily as needed Topica l False Nystatin 100,000 unit/gram topical powder [generic] 100,000 unit Topical Twice daily to scrotum with AM and PM care For Scrotal excoriation 100,000 unit 06/05 Inactiv e 2023 14662 04385 5 Twice daily Topica l False Problems [...] weight Temperature SpO2 Blood Sugar Pulse Respirations 86703 216 46007 1 254.10 NI [address]876 216 99231 2 79.00 mm[Hg] - Sitting 157.00 mm[Hg] - Sitting 73 NI 254.10 NI 36.30 Tympanic 95.00 % 72.00/ min 16.00/min 33915 216 35635 4 98.80 Tympanic 01618 216 96251 2 78.00 mm[Hg] - Sitting 164.00 mm[Hg] - Sitting 59396 217 88091 3 98.20 Tympanic 77397 217 54985 5 73.00 mm[Hg] - Sitting 159.00 mm[Hg] - Sitting 09415 217 46254 9 98.40 Forehead Scan 39241 218 38382 3 97.90 Tympanic 80122 218 09453 5 77.00 mm[Hg] - Sitting 137.00 mm[Hg] - Sitting 35704 219 62761 0 97.70 Tympanic 84298 219 53878 6 97.60 Tympanic 79928 219 18693 4 76.00 mm[Hg] - Sitting 139.00 mm[Hg] - Sitting 81133 219 47913 4 97.80 Forehead Scan 84146 220 95472 9 97.90 Tympanic 23025 220 63575 9 76.00 mm[Hg] - Sitting 138.00 mm[Hg] - Sitting 11105 220 20659 6 98.10 Tympanic 37272 221 47385 5 67.00 mm[Hg] - Sitting 142.00 mm[Hg] - Sitting 72613 221 20633 8 98.20 Tympanic 68928 221 67805 0 98.30 Tympanic 76291 222 80648 7 98.20 Tympanic 17522 222 48517 8 97.90 Tympanic 43898 223 42683 3 98.20 Tympanic 97200 223 15023 3 98.00 Tympanic 65920 224 44801 0 59.00 mm[Hg] - Sitting 111.00 mm[Hg] - Sitting 98.40 Forehead Scan 95.00 % 56.00/ min 18.00/min 40957 224 84425 9 98.20 Forehead Scan 79119 224 04145 3 97.90 Tympanic 83953 225 32412 4 98.20 Tympanic 99960 225 69364 8 97.50 Forehead Scan 61207 228 37247 0 55.00 mm[Hg] - Sitting 118.00 mm[Hg] - Sitting 98.40 Tympanic 69.00/ min 42526 229 73066 8 78.00 mm[Hg] - Sitting 152.00 mm[Hg] - Sitting 73909 230 98558 0 62.00 mm[Hg] - Sitting 122.00 mm[Hg] - Sitting 87131 231 71853 7 72.00 mm[Hg] - Lying Down 140.00 mm[Hg] - Lying Down 93508 101 35917 3 97.70 Forehead Scan 20246 101 35082 1 254.10 NI 69.00/ min 20059 101 23752 9 72.00 mm[Hg] - Sitting 142.00 mm[Hg] - Sitting 97.70 Tympanic 18.00/min 17077 101 51979 3 72.00 mm[Hg] - Lying Down 142.00 mm[Hg] - Lying Down 69020 102 65051 8 68.00 mm[Hg] - Lying Down 152.00 mm[Hg] - Lying Down 40417 103 12359 5 74.00 mm[Hg] - Sitting 158.00 mm[Hg] - Sitting 84313 104 81762 9 78.00 mm[Hg] - Sitting 144.00 mm[Hg] - Sitting 67259 105 52516 5 68.00 mm[Hg] - Sitting 138.00 mm[Hg] - Sitting 86245 106 41462 1 70.00 mm[Hg] - Sitting 138.00 mm[Hg] - Sitting 17777 107 28257 1 67.00 mm[Hg] - Sitting 142.00 mm[Hg] - Sitting 69374 108 00156 0 74.00 mm[Hg] - Sitting 143.00 mm[Hg] - Sitting 66064 110 43446 6 85.00 mm[Hg] - Sitting 160.00 mm[Hg] - Sitting 97.80 Tympanic 93.00 % 76.00/ min 18.00/min 71437 111 82581 1 83.00 mm[Hg] - Sitting 129.00 mm[Hg] - Sitting 98.60 Tympanic 92.00 % 71.00/ min 18.00/min 87633 111 62861 5 60.00 mm[Hg] - Sitting 114.00 mm[Hg] - Sitting 98.70 Tympanic 92.00 % 76.00/ min 18.00/min Immunizations Vaccine Date Status COVID-19 [...]
--- OUTSIDE RECORDS SUMMARY | 2024-07-26 11:14 | External Medical Summary | Continuity Of Care Document ---
Author Name Unknown Address [address] [place] [address] Organization [facility] () Care Team Providers Care Delicatessen Manager Name Role Phone DO Pritchett Amy Primary Care Provider [phone] Allergies Allergy Reaction Start Date End Date Status AMINOGLYCOSIDES Active CIPRO Active GENTAMICIN Active NSAIDS (NON-STEROIDAL ANTI-INFLAMMATORY DRUG) 0 Active IBUPROFEN Active QUINOLONES Active VALIUM Active Medications Medication Instructions Dosage Start Date End Date Status Order Date Drug Code Frequency Route of Admin Diagnosis Code Substitutions Allowed Spikevax 7822-9409(1 2y up)(PF) 50 mcg/0.5 mL intramuscul ar suspension [COVID [id number](12 up)(andu)(P F)] 0.5mL Intramuscular 1 time Monitory 15 Minutes post injection for adverse effects; record site/temp For COVID 19 PREVENTION 0.5mL 01/02 Inactiv e 2023 76891 71205 4 1 time Intram uscula r False [facility] - Nurse initials indicate verificatio n that [id number] vaccine was administere d by [facility] Representat jon 1 Intramuscular 1 time ( Indicate vaccine type) For vaccine 1 05/03 Inactiv e 2023 1 time Intram uscula r False Lisinopril 40 mg tablet [generic] TAKE ONE (1) TABLET BY MOUTH IN THE MORNING. For DX- HTN 1 2023 Active 2023 71843 57293 1 Once daily By Mouth False Tizanidine 2 mg tablet [generic] TAKE ONE (1) TABLET BY MOUTH ONCE DAILY For MUSCLE SPASM 1 2023 Active 2023 78754 24042 0 Once daily By Mouth M62.838 False Tamsulosin 0.4 mg capsule [generic] TAKE (1) CAPSULE BY MOUTH AT BEDTIME For SPASMS 1 2023 Active 2023 79992 11294 0 Once daily By Mouth False Aspirin 81 mg tablet Once daily 1 TABLET BY MOUTH IN THE MORNING For DX- CAD DO NOT CRUSH, CHEW OR BREAK 81 mg 06/12 Inactiv e 2023 Once daily By Mouth False Baclofen 20 mg tablet [generic] 20 mg By Mouth 4 times a day For DX- MUSCLE SPASMS 20 mg 12/12 Inactiv e 2023 76595 03955 1 4 times a day By Mouth False Calcium citrate 250 mg tablet Once daily 4 TABLET BY MOUTH For DX- SUPPLEMENT 250 mg calci 12/12 Inactiv e 2023 Once daily By Mouth False Co Q-10 100 mg capsule 100 mg By Mouth Once daily For DX- SUPPLEMENT 100 mg 06/20 Inactiv e 2023 10771 03522 5 Once daily By Mouth False Furosemide 20 mg tablet [generic] 20 mg By Mouth Once daily For DX-CHF 20 mg 12/12 Inactiv e 2023 74341 97766 0 Once daily By Mouth False Gabapentin 300 mg capsule [generic] 300 mg By Mouth 3 times a day For DX- NEUROPATHY 300 mg 12/12 Inactiv e 2023 09945 51891 4 3 times a day By Mouth False Loratadine 10 mg tablet [generic] 10 mg By Mouth Once daily For DX- ALLERGIES 10 mg 2023 Active 2023 54057 84403 1 Once daily By Mouth False Miralax 17 gram/dose oral powder 17 gram/dose By Mouth IN THE MORNING Mix 1 TABLESPOON IN 8 OZ OF FLUID HOLD FOR LOOSE STOOLS For DX- CONSTIPATION 17 gram/do se 12/12 Inactiv e 2023 41254 22580 0 Once daily By Mouth False Paroxetine 30 mg tablet [generic] 30 mg By Mouth Once daily For DX- DEPRESSION 30 mg 2023 00/00 /0000 Active 2023 96380 68484 3 Once daily By Mouth False Potassium citrate ER 15 mEq (1,620 mg) tablet,exte nded release [generic] 15 mEq By Mouth 3 times a day For DX- SUPPLEMENT/DI URETIC USE/ HYPOCITRAUIRA DO NOT CRUSH 15 mEq 12/12 Inactiv e 2023 27219 43768 1 3 times a day By Mouth [...] For DX- DANDRUFF 12/12 Inactiv e 2023 31156 26739 4 3 times a week Topica l False Acetaminoph en 325 mg tablet [generic] TAKE 2 TABS (650MG) BY MOUTH EVERY 4 HOURS NEEDED FOR TEMP >100 NOT TO EXCEED 3GM/24HRS TAKE 2 TABS (650MG) BY MOUTH EVERY 4 HOURS NEEDED FOR TEMP >100 NOT TO EXCEED 3GM/24HRS For DX-FEVER 2 12/12 Inactiv e 2023 73351 18650 0 By Mouth False MILK OF MAGNESIA ADMINISTER 30 ML BY MOUTH ONCE DAILY NEEDED FOR CONSTIPATION X3 DAYS WITH NO BM. For DX- CONSTIPATION 30ML 12/12 Inactiv e 2023 91454 81252 9 By Mouth False Enema Disposable 19 gram-7 gram/118 mL ADMINISTER ONE ENEMA RECTALLY ONCE DAILY NEEDED FOR CONSTIPATION ON DAY 6 OF NO BM For DX- CONSTIPATION 12/12 Inactiv e 2023 67010 97957 1 Rectal False TUMS EXTRA STR 750MG TAKE (1) TABLET BY MOUTH THREE TIMES DAILY NEEDED FOR INDIGESTION For DX- INDIGESTION 1 12/12 Inactiv e 2023 83760 87063 8 By Mouth False Vitamin D3 25 [...] CONSTIPATION 10 mg 12/12 Inactiv e 2023 24189 50218 1 Rectal False Melatonin 3 mg tablet [generic] 3 mg By Mouth As Needed For DX-INSOMMIA 3 mg 12/12 Inactiv e 2023 51889 46634 8 By Mouth False Hydrocortis one 1 % topical cream [generic] 1 % Topical As Needed For DX- PAIN 1 % 12/12 Inactiv e 2023 67688 86449 1 Topica l False HYDROCORTIS ONE/PARMOXI NE [...] 5-10 50 mg 12/20 Inactiv e 2023 99885 75043 0 Every 4 hours as needed By Mouth False Tylenol 325 mg tablet 325 mg By Mouth Every 4 hours as needed For DX- PAIN PRN FOR MILD PAIN, DO NOT EXCEED 3000MG APAP/24 HOURS 325 mg 12/20 Inactiv e 2023 79391 06569 0 Every 4 hours as needed By Mouth False Baclofen 20 mg tablet [generic] 20 mg By Mouth 4 times a day For MUSCLE SPASMS 20 mg 12/20 Inactiv e 2023 34762 49945 1 4 times a day By Mouth False Calcium citrate 250 mg tablet [generic] Once daily TAKE 4 TABLETS (1000MG) BY MOUTH For SUPPLEMENT 1000 MG 06/26 Inactiv e 2023 77443 15586 6 Once daily By Mouth False Dulcolax (bisacodyl) 10 mg rectal suppository 10 mg Rectal Once daily For CONSTIPATION *MAY HOLD FOR LOOSE STOOLS* 10 mg 2023 Active 2023 68151 00599 1 Once daily Rectal False Gabapentin 300 mg capsule [generic] 300 mg By Mouth 3 times a day For NEUROPATHY 300 mg 2023 Active 2023 67015 04646 4 3 times a day By Mouth False Potassium citrate ER 15 mEq (1,620 mg) tablet,exte nded release [generic] 15 mEq By Mouth 3 times a day For SUPPLEMENT/DI URETIC USE/HYPOCITRA URIA 15 mEq 06/11 Inactiv e 2023 55343 89260 1 3 times a day By Mouth False Potassium chloride ER 20 mEq tablet,exte nded release [generic] 20 mEq By Mouth 3 times a day *DO NOT CRUSH, CHEW OR BREAK* For SUPPLEMENT 20 mEq 12/18 Inactiv e 2023 41844 81100 1 3 times a day By Mouth False Tizanidine 4 mg tablet [generic] 4 mg By Mouth Once daily For MUSCLE SPASMS 4 mg 2023 Active 2023 59136 59524 0 Once daily By Mouth False Tylenol 325 mg tablet 2 tabs By Mouth Every 4 hours as needed For Fever >100 DO NOT EXCEED 3000 MG APAP/24 Hours 2 tabs 12/20 Inactiv e 2023 70420 13812 0 Every 4 hours as needed By [...] adjustment of urinary device 07/21/2023 Active Z79.01 [facility]PC (current) use of anticoagulants 07/21 Active N31.9 [...] Temperature SpO2 Blood Sugar Pulse Respirations 216 75499 1 254.10 NI 59461 216 30767 2 79.00 mm[Hg] - Sitting 157.00 mm[Hg] - Sitting 73 NI 254.10 NI 36.30 Tympanic 95.00 % 72.00/ min 16.00/min 96063 216 83434 4 98.80 Tympanic 43658 216 24014 2 78.00 mm[Hg] - Sitting 164.00 mm[Hg] - Sitting 80359 217 88239 3 98.20 Tympanic 48521 217 21116 5 73.00 mm[Hg] - Sitting 159.00 mm[Hg] - Sitting 11195 217 30574 9 98.40 Forehead Scan 36868 218 65823 3 97.90 Tympanic 40274 218 79470 5 77.00 mm[Hg] - Sitting 137.00 mm[Hg] - Sitting 05251 219 59037 0 97.70 Tympanic 50437 219 73271 6 97.60 Tympanic 41809 219 85947 4 76.00 mm[Hg] - Sitting 139.00 mm[Hg] - Sitting 08770 219 50694 4 97.80 Forehead Scan 92421 220 95194 9 97.90 Tympanic 50114 220 26655 9 76.00 mm[Hg] - Sitting 138.00 mm[Hg] - Sitting 57134 220 26130 6 98.10 Tympanic 80710 221 61163 5 67.00 mm[Hg] - Sitting 142.00 mm[Hg] - Sitting 88625 221 90616 8 98.20 Tympanic 59438 221 13644 0 98.30 Tympanic 56830 222 78358 7 98.20 Tympanic 09906 222 73330 8 97.90 Tympanic 35624 223 21277 3 98.20 Tympanic 90711 223 70277 3 98.00 Tympanic 04053 224 60869 0 59.00 mm[Hg] - Sitting 111.00 mm[Hg] - Sitting 98.40 Forehead Scan 95.00 % 56.00/ min 18.00/min 18338 224 78552 9 98.20 Forehead Scan 35948 224 11053 3 97.90 Tympanic 00421 225 12497 4 98.20 Tympanic 91471 225 64759 8 97.50 Forehead Scan 54580 228 64974 0 55.00 mm[Hg] - Sitting 118.00 mm[Hg] - Sitting 98.40 Tympanic 69.00/ min 20479 229 91493 8 78.00 mm[Hg] - Sitting 152.00 mm[Hg] - Sitting 50240 230 70882 0 62.00 mm[Hg] - Sitting 122.00 mm[Hg] - Sitting 14682 231 35418 7 72.00 mm[Hg] - Lying Down 140.00 mm[Hg] - Lying Down 04218 101 31279 3 97.70 Forehead Scan 45207 101 59000 1 254.10 NI 69.00/ min 60638 101 51452 9 72.00 mm[Hg] - Sitting 142.00 mm[Hg] - Sitting 97.70 Tympanic 18.00/min 83873 101 18292 3 72.00 mm[Hg] - Lying Down 142.00 mm[Hg] - Lying Down 41036 102 93642 8 68.00 mm[Hg] - Lying Down 152.00 mm[Hg] - Lying Down 43926 103 40646 5 74.00 mm[Hg] - Sitting 158.00 mm[Hg] - Sitting 59032 104 71813 9 78.00 mm[Hg] - Sitting 144.00 mm[Hg] - Sitting 65804 105 43786 5 68.00 mm[Hg] - Sitting 138.00 mm[Hg] - Sitting 87884 106 41888 1 70.00 mm[Hg] - Sitting 138.00 mm[Hg] - Sitting 21567 107 62815 1 67.00 mm[Hg] - Sitting 142.00 mm[Hg] - Sitting 49484 108 89726 0 74.00 mm[Hg] - Sitting 143.00 mm[Hg] - Sitting 48362 110 30979 6 85.00 mm[Hg] - Sitting 160.00 mm[Hg] - Sitting 97.80 Tympanic 93.00 % 76.00/ min 18.00/min 15236 111 73060 1 83.00 mm[Hg] - Sitting 129.00 mm[Hg] - Sitting 98.60 Tympanic 92.00 % 71.00/ min 18.00/min 13273 111 20805 5 60.00 mm[Hg] - Sitting 114.00 mm[Hg] - Sitting 98.70 Tympanic 92.00 % 76.00/ min 18.00/min 64021 112 71014 4 55.00 mm[Hg] - Sitting 125.00 mm[Hg] [...]
--- OUTSIDE RECORDS SUMMARY | 2024-07-26 11:14 | External Medical Summary | Continuity Of Care Document ---
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 Name Role Phone DO Pritchett Amy Primary Care Provider [phone] Allergies Allergy Reaction Start Date End Date Status AMINOGLYCOSIDES Active CIPRO Active GENTAMICIN Active NSAIDS (NON-STEROIDAL ANTI-INFLAMMATORY DRUG) 0 Active IBUPROFEN Active QUINOLONES Active VALIUM Active Medications Medication Instructions Dosage Start Date End Date Status Order Date Drug Code Frequency Route of Admin Diagnosis Code Substitutions Allowed Spikevax [id number](1 2y up)(PF) 50 mcg/0.5 mL intramuscul ar suspension [COVID [id number](12 up)(andu)(P F)] 0.5mL Intramuscular 1 time Monitory 15 Minutes post injection for adverse effects; record site/temp For COVID 19 PREVENTION 0.5mL 01/02 Inactiv e 2023 74767 58691 4 1 time Intram uscula r False [facility] - Nurse initials indicate verificatio n that [id number] vaccine was administere d by [facility] jon 1 Intramuscular 1 time ( Indicate vaccine type) For vaccine 1 05/03 Inactiv e 2023 1 time Intram uscula r False Lisinopril 40 mg tablet [generic] TAKE ONE (1) TABLET BY MOUTH IN THE MORNING. For DX- HTN 1 2023 Active 2023 52157 50274 1 Once daily By Mouth False Tizanidine 2 mg tablet [generic] TAKE ONE (1) TABLET BY MOUTH ONCE DAILY For MUSCLE SPASM 1 2023 Active 2023 58394 73531 0 Once daily By Mouth M62.838 False Tamsulosin 0.4 mg capsule [generic] TAKE (1) CAPSULE BY MOUTH AT BEDTIME For SPASMS 1 2023 Active 2023 53809 06824 0 Once daily By Mouth False Aspirin 81 mg tablet Once daily 1 TABLET BY MOUTH IN THE MORNING For DX- CAD DO NOT CRUSH, CHEW OR BREAK 81 mg 06/12 Inactiv e 2023 Once daily By Mouth False Baclofen 20 mg tablet [generic] 20 mg By Mouth 4 times a day For DX- MUSCLE SPASMS 20 mg 12/12 Inactiv e 2023 36494 57256 1 4 times a day By Mouth False Calcium citrate 250 mg tablet Once daily 4 TABLET BY MOUTH For DX- SUPPLEMENT 250 mg calci 12/12 Inactiv e 2023 Once daily By Mouth False Co Q-10 100 mg capsule 100 mg By Mouth Once daily For DX- SUPPLEMENT 100 mg 06/20 Inactiv e 2023 94013 99098 5 Once daily By Mouth False Furosemide 20 mg tablet [generic] 20 mg By Mouth Once daily For DX-CHF 20 mg 12/12 Inactiv e 2023 89326 26285 0 Once daily By Mouth False Gabapentin 300 mg capsule [generic] 300 mg By Mouth 3 times a day For DX- NEUROPATHY 300 mg 12/12 Inactiv e 2023 22997 43311 4 3 times a day By Mouth False Loratadine 10 mg tablet [generic] 10 mg By Mouth Once daily For DX- ALLERGIES 10 mg 2023 Active 2023 95616 97447 1 Once daily By Mouth False Miralax 17 gram/dose oral powder 17 gram/dose By Mouth IN THE MORNING Mix 1 TABLESPOON IN 8 OZ OF FLUID HOLD FOR LOOSE STOOLS For DX- CONSTIPATION 17 gram/do se 12/12 Inactiv e 2023 92191 75740 0 Once daily By Mouth False Paroxetine 30 mg tablet [generic] 30 mg By Mouth Once daily For DX- DEPRESSION 30 mg 2023 00/00 /0000 Active 2023 36290 73973 3 Once daily By Mouth False Potassium citrate ER 15 mEq (1,620 mg) tablet,exte nded release [generic] 15 mEq By Mouth 3 times a day For DX- SUPPLEMENT/DI URETIC USE/ HYPOCITRAUIRA DO NOT CRUSH 15 mEq 12/12 Inactiv e 2023 58868 33534 1 3 times a day By Mouth [...] For DX- DANDRUFF 12/12 Inactiv e 2023 58679 65669 4 3 times a week Topica l False Acetaminoph en 325 mg tablet [generic] TAKE 2 TABS (650MG) BY MOUTH EVERY 4 HOURS NEEDED FOR TEMP >100 NOT TO EXCEED 3GM/24HRS TAKE 2 TABS (650MG) BY MOUTH EVERY 4 HOURS NEEDED FOR TEMP >100 NOT TO EXCEED 3GM/24HRS For DX-FEVER 2 12/12 Inactiv e 2023 38109 20793 0 By Mouth False MILK OF MAGNESIA ADMINISTER 30 ML BY MOUTH ONCE DAILY NEEDED FOR CONSTIPATION X3 DAYS WITH NO BM. For DX- CONSTIPATION 30ML 12/12 Inactiv e 2023 41033 17424 9 By Mouth False Enema Disposable 19 gram-7 gram/118 mL ADMINISTER ONE ENEMA RECTALLY ONCE DAILY NEEDED FOR CONSTIPATION ON DAY 6 OF NO BM For DX- CONSTIPATION 12/12 Inactiv e 2023 11277 59090 1 Rectal False TUMS EXTRA STR 750MG TAKE (1) TABLET BY MOUTH THREE TIMES DAILY NEEDED FOR INDIGESTION For DX- INDIGESTION 1 12/12 Inactiv e 2023 46321 28010 8 By Mouth False Vitamin D3 25 [...] CONSTIPATION 10 mg 12/12 Inactiv e 2023 99097 25510 1 Rectal False Melatonin 3 mg tablet [generic] 3 mg By Mouth As Needed For DX-INSOMMIA 3 mg 12/12 Inactiv e 2023 70682 12434 8 By Mouth False Hydrocortis one 1 % topical cream [generic] 1 % Topical As Needed For DX- PAIN 1 % 12/12 Inactiv e 2023 72800 23473 1 Topica l False HYDROCORTIS ONE/PARMOXI NE [...] 5-10 50 mg 12/20 Inactiv e 2023 92281 00580 0 Every 4 hours as needed By Mouth False Tylenol 325 mg tablet 325 mg By Mouth Every 4 hours as needed For DX- PAIN PRN FOR MILD PAIN, DO NOT EXCEED 3000MG APAP/24 HOURS 325 mg 12/20 Inactiv e 2023 11341 69495 0 Every 4 hours as needed By Mouth False Baclofen 20 mg tablet [generic] 20 mg By Mouth 4 times a day For MUSCLE SPASMS 20 mg 12/20 Inactiv e 2023 12488 68558 1 4 times a day By Mouth False Calcium citrate 250 mg tablet [generic] Once daily TAKE 4 TABLETS (1000MG) BY MOUTH For SUPPLEMENT 1000 MG 06/26 Inactiv e 2023 89184 43666 6 Once daily By Mouth False Dulcolax (bisacodyl) 10 mg rectal suppository 10 mg Rectal Once daily For CONSTIPATION *MAY HOLD FOR LOOSE STOOLS* 10 mg 2023 Active 2023 10560 42999 1 Once daily Rectal False Gabapentin 300 mg capsule [generic] 300 mg By Mouth 3 times a day For NEUROPATHY 300 mg 2023 Active 2023 82878 40823 4 3 times a day By Mouth False Potassium citrate ER 15 mEq (1,620 mg) tablet,exte nded release [generic] 15 mEq By Mouth 3 times a day For SUPPLEMENT/DI URETIC USE/HYPOCITRA URIA 15 mEq 06/11 Inactiv e 2023 48746 86389 1 3 times a day By Mouth False Potassium chloride ER 20 mEq tablet,exte nded release [generic] 20 mEq By Mouth 3 times a day *DO NOT CRUSH, CHEW OR BREAK* For SUPPLEMENT 20 mEq 12/18 Inactiv e 2023 60418 79904 1 3 times a day By Mouth False Tizanidine 4 mg tablet [generic] 4 mg By Mouth Once daily For MUSCLE SPASMS 4 mg 2023 Active 2023 62472 90074 0 Once daily By Mouth False Tylenol 325 mg tablet 2 tabs By Mouth Every 4 hours as needed For Fever >100 DO NOT EXCEED 3000 MG APAP/24 Hours 2 tabs 12/20 Inactiv e 2023 08823 21919 0 Every 4 hours as needed By Mouth False Dulcolax (bisacodyl) 10 mg rectal suppository Daily as needed For Constipation 1 sup 12/20 Inactiv e 2023 89217 99665 1 Daily as needed Rectal False Fleet Enema 19 gram-7 gram/118 mL 1 Rectal Daily as neededFor Constipation 1 12/20 Inactiv e 2023 54158 38699 6 Daily as needed Rectal False Milk of Magnesia 400 mg/5 mL oral suspension [Magnesium hydroxide] PRN 30ml By Mouth Daily as needed for constipation one time daily if no BM, on day 4 of no BM (PRN refer to instructions) For Constipation For Constipatioin 30ml 12/20 Inactiv e 2023 21617 97174 6 1 time By Mouth False Melatonin 3 mg tablet [generic] 3 mg By Mouth Once daily As Needed For INSOMNIA 3 mg 12/20 Inactiv e 2023 19708 07150 8 Once daily By Mouth False Hydrocortis one 1 % topical cream [generic] 1 % Rectal Four times daily as needed For hemorroid pain 1 % 12/20 Inactiv e 2023 92815 60505 1 Four times daily as needed Rectal False X-STGH ANTACID 750MG CHEW TAKE (1) TABLET BY MOUTH THREE TIMES DAILY NEEDED FOR INDIGESTION 12/20 Inactiv e 2023 79828 16612 4 Three times daily as needed Saline Mist 0.65 % nasal spray aerosol 0.65 % Nares Four times daily as needed For DRYNESS 0.65 % 12/20 Inactiv e 2023 93660 36394 8 Four times daily as needed Nares False Vicks Vaporub 4.7 %-1.2 %-2.6 % topical ointment Apply topically to chest Three times daily as needed For CONGESTION 4.7-1.2 -2.6 12/20 Inactiv e 2023 86874 23759 1 Three times daily as needed Topica l False VITAMIN D3 2000U CAP TAKE ONE (1) CAPSULE BY MOUTH DAILY* DO NOT CRUSH, CHEW OR BREAK* For Supplement 1 capsule 12/19 Inactiv e 2023 29348 36890 0 Once daily By Mouth False Potassium chloride ER 20 mEq tablet,exte nded release(par t/cryst) [generic] TAKE (1) TABLET BY MOUTH THREE TIMES DAILY (MORNING, AFTERNOON, EVENING)*DO NOT CRUSH, CHEW, OR BREAK* For SUPPLEMENT 20 MEQ 06/11 Inactiv e 2023 67724 21851 5 3 times a day By Mouth False Aspirin 81 mg tablet,camron yed release [generic] TAKE ONE (1) TABLET BY MOUTH ONCE DAILY*DO NOT CRUSH, CHEW OR BREAK* For CAD 81 MG 12/22 Inactiv e 2023 30340 42248 0 Once daily By Mouth False Furosemide 20 mg tablet [generic] TAKE 1 AND 1/2 TABLETS (30MG) BY MOUTH ONCE DAILY For CHF 30mg 2023 Active 2023 41867 58604 1 Once daily By Mouth False Polyethylen e glycol 3350 17 gram/dose oral powder [generic] MIX 17 GRAMS (1 CAPFUL) IN 60Z OF LIQUID AND DRINK BY MOUTH ONCE DAILY *HOLD FOR LOOSE STOOLS* For constipation 17 g 2023 Active 2023 23973 72846 3 Once daily By Mouth False Vitamin D3 50 mcg (2,000 unit) capsule Once daily TAKE ONE (1) CAPSULE BY MOUTH DAILY* DO NOT CRUSH, CHEW OR BREAK* For Supplement 1 capsule 02/07 Inactiv e 2023 60782 04460 2 Once daily By Mouth False Fleet Enema 19 gram-7 gram/118 mL 1 Rectal Daily as neededFor Constipation 1 2023 0000 Active 2023 48132 64743 6 Daily as needed Rectal False Tums E-X 300 mg (as calcium carbonate 750 mg) chewable tablet 1 tab By Mouth TAKE (1) TABLET BY MOUTH THREE TIMES DAILY NEEDED FOR INDIGESTION 1 tab 202300 /0000 Active 2023 52741 06740 1 Three times daily as needed By Mouth False Tylenol 325 mg tablet 2 tabs By Mouth Every 4 hours as needed For Fever >100 DO NOT EXCEED 3000 MG APAP/24 Hours 2 tabs 202300 /0000 Active 2023 66273 03839 0 Every 4 hours as needed By Mouth False Vicks Vaporub 4.7 %-1.2 %-2.6 % topical ointment Apply topically to chest Three times daily as needed For CONGESTION topical 202300 Active 2023 71719 18630 1 Three times daily as needed Topica l False Tylenol 325 mg tablet 2 tabs By Mouth Every 4 hours as needed For DX- PAIN PRN FOR MILD PAIN, DO NOT EXCEED 3000MG APAP/24 HOURS 2 tabs 202300 Active 2023 65559 67319 0 Every 4 hours as needed By Mouth False Tramadol 50 mg tablet [generic] 1 tab By Mouth Every 4 hours as needed For DX- PAIN 5-10 1 tab 03/10 Inactiv e 2023 31456 65173 0 Every 4 hours as needed By Mouth False Saline Mist 0.65 % nasal spray aerosol 2 sprays Nares Four times daily as needed For DRYNESS 2 sprays 202300 / Active 2023 02047 52469 8 Four times daily as needed Nares False Dulcolax (bisacodyl) 10 mg rectal suppository Daily as needed For Constipation 1 sup 202300 / Active 2023 54698 70512 1 Daily as needed Rectal False Hydrocortis one-pramoxi ne 1 %-1 % rectal cream [generic] 1 mague Rectal Four times daily as needed For hemorroid pain 1 mague 202300 /0000 Active 2023 86827 71546 4 Four times daily as needed Rectal False Melatonin 3 mg tablet [generic] 1 tab By Mouth At bedtime as needed For INSOMNIA 1 tab 12/24 Inactiv e 2023 90915 57495 8 At bedtime as needed By Mouth False Milk of Magnesia 400 mg/5 mL oral suspension 30ml By Mouth Daily as needed Daily as needed for constipation one time daily if no BM, on day 4 of no BM (PRN refer to instructions) For Constipation For Constipatioin 30ml 2023 Active 2023 97921 27805 2 Daily as needed By Mouth False Baclofen 20 mg tablet [generic] 20 mg By Mouth 4 times a day For MUSCLE SPASMS 20 mg 2023 Active 2023 23291 16106 1 4 times a day By Mouth False Melatonin 3 mg tablet [generic] 1 tab By Mouth At bedtime as needed For INSOMNIA 1 tab 2023 Active 2023 25064 20577 8 At bedtime as needed By Mouth False Bactrim DS 800 mg-160 mg tablet 1 tab By Mouth Twice daily For URINARY TRACT INFECTION, SITE NOT SPECIFIED 1 tab 01/06 Inactiv e 2023 91457 51873 1 Twice daily By Mouth N39.0 False Cefdinir 300 mg capsule [generic] 300 mg By Mouth Twice daily For UTI 300 mg 01/07 Inactiv e 2023 48607 43518 0 Twice daily By Mouth False Cefdinir 300 mg capsule [generic] 300 mg By Mouth Twice daily For UTI 300 mg 01/17 Inactiv e 2023 37824 75533 0 Twice daily By Mouth False Zyrtec 10 mg tablet 10 mg By Mouth Once daily For sinus congestion 10 mg 01/22 Inactiv e 2023 26185 65274 0 Once daily By Mouth False Tobramycin 0.3 %-dexametha sone 0.1 % eye drops,suspe nsion [generic] 0.3-0.1 % Left Eye 4 times a day For eye infection 0.3-0.1 % 02/05 Inactiv e 2023 91482 55805 5 4 times a day Left Eye False Fluconazole 150 mg tablet [generic] 150 mg By Mouth 1 time For yeast infection 150 mg 02/15 Inactiv e 2023 09582 53179 2 1 time By Mouth False Tramadol 50 mg tablet [generic] 1 tab By Mouth Every 4 hours as needed For DX- PAIN 5-10 1 tab 2023 00/00 /0000 Active 2023 46702 30461 0 Every 4 hours as needed By Mouth False Tobramycin 0.3 %-dexametha sone 0.1 % eye drops,suspe nsion [generic] 1 drop Left Eye 4 times a day For Inflammation of left eye 1 drop 05/08 Inactiv e 2023 68984 85365 5 4 times a day Left Eye False Voltaren Arthritis Pain 1 % topical gel 2 gm Topical Twice daily to rigth shoulder for 2 weeks For pain 2 gm 05/08 Inactiv e 2023 35271 42356 1 Twice daily Topica l False Chlorthalid one 25 mg tablet [generic] 12.5mg By Mouth Once daily For HTN 12.5mg 05/06 Inactiv e 2023 44843 70797 0 Once daily By Mouth False Chlorthalid one 25 mg tablet [generic] 12.5mg By Mouth Once daily For HTN 12.5mg 05/07 Inactiv e 2023 82944 06339 0 Once daily By Mouth False Chlorthalid one 25 mg tablet [generic] 05/07 Inactiv e 2023 28842 41378 0 Chlorthalid one 25 mg tablet [generic] 12.5mg By Mouth Once daily For HTN 12.5mg 06/26 Inactiv e 2023 07344 31366 0 Once daily By Mouth False Norvasc 5 mg tablet 5mg By Mouth Once daily, hold medication if systolic is less than 90 For HYPERTENSIVE HEART DISEASE WITHOUT HEART FAILURE 5mg 06/03 Inactiv e 2023 07519 21507 1 Once daily By Mouth I11.9 False Norvasc 5 mg tablet 5mg By Mouth Once daily, hold medication if systolic is less than 90 For HYPERTENSIVE HEART DISEASE WITHOUT HEART FAILURE 5mg 06/03 Inactiv e 2023 49355 56582 1 Once daily By Mouth I11.9 False Norvasc 5 mg tablet 5mg By Mouth Once daily, hold medication if systolic is less than 90 For HYPERTENSIVE HEART DISEASE WITHOUT HEART FAILURE 5mg 06/26 Inactiv e 2023 10940 11682 1 Once daily By Mouth I11.9 False [...] 10 mg 2023 00/00 /0000 Active 2023 86781 41037 1 Once daily By Mouth False DISCONTINUE [...] CAD 81 mg 06/14 Inactiv e 2023 81671 80314 9 Once daily By Mouth False Aspirin 81 mg tablet,camron yed release [generic] 06/14 Inactiv e 2023 17111 30967 9 Aspirin 81 mg tablet,camron yed release [generic] 81 mg By Mouth Once daily Do not crush, chew, or break For CAD 81 mg 06/154 Inactiv e 2023 06869 25304 9 Once daily By Mouth False Cefpodoxime 200 mg tablet [generic] 200mg By Mouth Twice daily For UTI 200mg 07/04 Inactiv e 2023 25720 86244 0 Twice daily By Mouth False Calcium citrate 250 mg tablet [generic] 06/26 Inactiv e 2023 83361 81505 6 Calcium citrate 250 mg tablet [generic] Once daily TAKE 4 TABLETS (1000MG) BY MOUTH For SUPPLEMENT 500 MG 2023 Active 2023 80689 98506 6 Once daily By Mouth False Norvasc 5 mg tablet 7.5 mg By Mouth Once daily Hold medication if SBP <90 For HYPERTENSIVE HEART DISEASE WITHOUT HEART FAILURE 7.5 mg 06/30 Inactiv e 2023 86092 58239 1 Once daily By Mouth I11.9 False Norvasc 5 mg tablet 7.5 mg By Mouth Once daily Hold medication if SBP <90 For HYPERTENSIVE HEART DISEASE WITHOUT HEART FAILURE 7.5 mg 07/06 Inactiv e 2023 51772 08090 1 Once daily By Mouth I11.9 False Simethicone 125 mg capsule [generic] 2 capule By Mouth Twice daily as needed For bloating/gas pain 2 capule 2023 Active 2023 35524 59496 0 Twice daily as needed By Mouth False Cepacol Sore Throat (benzocaine -menthol) 15 mg-2.6 mg lozenges 2 lozenges By Mouth Every 6 hours as needed For sore throat 2 lozenge s 2023 Active 2023 67505 65780 6 Every 6 hours as needed By Mouth False Cefepime 1 gram solution for injection [generic] 1g Intramuscular Every 12 hours 1g intramuscular ly ever 12 hours For UTI 1g 07/06 Inactiv e 2023 86163 10627 4 Every 12 hours Intram uscula r False Cefepime 1 gram solution for injection [generic] 07/06 Inactiv e 2023 08662 54936 4 Cefepime 1 gram solution for injection [generic] 1g Intramuscular Every 12 hours 1g intramuscular ly ever 12 hours For UTI Reconstitute with 2.4 ML of NSS. 1g 07/08 Inactiv e 2023 70699 63594 4 Every 12 hours Intram uscula r False Norvasc 5 mg tablet 07/06 Inactiv e 2023 42169 72833 1 I11.9 Norvasc 5 mg tablet 7.5 mg By Mouth Once daily Hold medication if SBP <90 For HYPERTENSIVE HEART DISEASE WITHOUT HEART FAILURE 7.5 mg 07/18 Inactiv e 2023 79418 46237 1 Once daily By Mouth I11.9 False Cefepime 1 gram solution for injection [generic] 07/08 Inactiv e 2023 79980 46439 4 Cefepime 1 gram solution for injection [generic] 1g Intramuscular Every 12 hours 1g intramuscular ly ever 12 hours For UTI Reconstitute with 2.4 ML of NSS. 1g 07/08 Inactiv e 2023 36847 73576 4 Every 12 hours Intram uscula r False Cefepime 1 gram solution for injection [generic] 07/08 Inactiv e 2023 65958 19261 4 Cefepime 1 gram solution for injection [generic] 1g Intramuscular Every 12 hours 1g intramuscular ly ever 12 hours For UTI Reconstitute with 2.4 ML of NSS. 1g 07/11 Inactiv e 2023 97646 84160 4 Every 12 hours Intram uscula r False Fleet Enema 19 gram-7 gram/118 mL 1 Rectal 1 time For constipation 1 07/16 Inactiv e 2024 44901 87444 6 1 time Rectal False Fleet Enema 19 gram-7 gram/118 mL 1 Rectal 1 time For constipation 1 07/17 Inactiv e 2024 05086 04165 6 1 time Rectal False Norvasc 5 mg tablet 7.5 mg By Mouth Once daily For HYPERTENSIVE HEART DISEASE WITHOUT HEART FAILURE 7.5 mg 2024 00/00 /0000 Active 2024 94532 71154 1 Once daily By Mouth I11.9 False Potassium chloride ER 20 mEq tablet,exte nded release(par t/cryst) [generic] 40 mEq By Mouth 1 time For low potassium prior to surgery 40 mEq 07/18 Inactiv e 2024 93738 94798 1 1 time By Mouth False Potassium chloride ER 20 mEq tablet,exte nded release(par t/cryst) [generic] 40 mEq By Mouth 1 time For low potassium prior to surgery 40 mEq 07/18 Inactiv e 2024 20370 36814 1 1 time By Mouth False Potassium chloride ER 20 mEq tablet,exte nded release(par t/cryst) [generic] 40 mEq By Mouth 1 time For low potassium 40 mEq 07/18 Inactiv e 2024 24077 52576 1 1 time By Mouth False Potassium chloride ER 20 mEq tablet,exte nded release(par t/cryst) [generic] 40 mEq By Mouth 1 time For low potassium 40 mEq 07/18 Inactiv e 2024 02307 09909 1 1 time By Mouth False Potassium chloride ER 20 mEq tablet,exte nded release [generic] 2 By Mouth 1 time For low potassium 2 07/19 Inactiv e 2024 17064 08601 1 1 time By Mouth False Potassium chloride ER 20 mEq tablet,exte nded release [generic] 2 capsules capsules By Mouth 1 time Please send capsule (2 capsules) For low potassium 2 capsule s 07/20 Inactiv e 2024 75150 87091 1 1 time By Mouth False Potassium chloride ER 20 mEq tablet,exte nded release(par t/cryst) [generic] TAKE (2) TABLETS (40MEQ) BY MOUTH X1 DOSE 07/20 Inactiv e 2024 90086 80961 5 Nystatin 100,000 unit/gram topical cream [generic] 100,000 unit Topical As Needed For DX- EXCORIATION 100,000 unit 12/12 Inactiv e 2023 35570 68945 5 Topica l False Vicks Vaporub 4.7 %-1.2 %-2.6 % topical ointment 4.7-1.2-2.6 Topical 3 times a day As Needed For DX- CONGESTION 4.7-1.2 -2.6 12/12 Inactiv e 2023 54307 69907 1 3 times a day Topica l False Ketoconazol e 2 % shampoo [generic] APPLY SHAMPOO TOPICALLY TO SCALP DURING HAIR WASHINGDX: ELVIA DERM OF SCALP For DX- ELVIA DERM OF SCALP 12/12 Inactiv e 2023 11292 67218 4 Topica l False THERA SILICONE SKIN GUARD Topical Twice daily 1 APPLICATION TOPICALLY IN THE MORNING AND AT BEDTIME TO SCROTUM For DX- PREVENTION 202300 Active 2023 Twice daily Topica l False Selenium sulfide 2.5 % lotion [generic] 2.5 % Topical EVERY MONDAY, MONDAY AND MONDAY AFTER SHOWER For DANDRUFF 2.5 % 2023 0000 /0000 Active 2023 78232 23836 4 3 times a week Topica l False Nystatin (bulk) 100 million unit powder [generic] 100 million Topical Twice daily as needed For EXOCORATION 100 million 12/20 Inactiv e 2023 07597 86492 1 Twice daily as needed Topica l False Ketoconazol e 2 % shampoo [generic] Once daily APPLY SHAMPOO TOPICALLY TO SCALP DURING HAIR WASHING ON SHOWER DAYS- , , MON For ELVIA DERM OF SCAP 2 % 2023 0000 /0000 Active 2023 17789 30426 4 Once daily Topica l False Nystatin 100,000 unit/gram topical cream [generic] 1 mague Topical Twice daily as needed For EXOCORATION 1 mague 06/05 Inactiv e 2023 41340 66465 5 Twice daily as needed Topica l False Nystatin 100,000 unit/gram topical powder [generic] 100,000 unit Topical Twice daily to scrotum with AM and PM care For Scrotal excoriation 100,000 unit 06/05 Inactiv e 2023 38814 77882 5 Twice daily Topica l False Problems [...] weight Temperature SpO2 Blood Sugar Pulse Respirations 20796 216 62456 1 254.10 NI 41966 216 76404 2 79.00 mm[Hg] - Sitting 157.00 mm[Hg] - Sitting 73 NI 254.10 NI 36.30 Tympanic 95.00 % 72.00/ min 16.00/min 10059 216 01423 4 98.80 Tympanic 22343 216 44854 2 78.00 mm[Hg] - Sitting 164.00 mm[Hg] - Sitting 23211 217 34207 3 98.20 Tympanic 29898 217 27997 5 73.00 mm[Hg] - Sitting 159.00 mm[Hg] - Sitting 61908 217 97058 9 98.40 Forehead Scan 04453 218 95859 3 97.90 Tympanic 71645 218 21898 5 77.00 mm[Hg] - Sitting 137.00 mm[Hg] - Sitting 53614 219 77774 0 97.70 Tympanic 61271 219 83141 6 97.60 Tympanic 33528 219 48653 4 76.00 mm[Hg] - Sitting 139.00 mm[Hg] - Sitting 50907 219 32508 4 97.80 Forehead Scan 43344 220 96816 9 97.90 Tympanic 21708 220 79594 9 76.00 mm[Hg] - Sitting 138.00 mm[Hg] - Sitting 50209 220 16967 6 98.10 Tympanic 62102 221 07771 5 67.00 mm[Hg] - Sitting 142.00 mm[Hg] - Sitting 59046 221 09883 8 98.20 Tympanic 72500 221 60997 0 98.30 Tympanic 14728 222 98914 7 98.20 Tympanic 65106 222 92778 8 97.90 Tympanic 29553 223 53868 3 98.20 Tympanic 77365 223 57107 3 98.00 Tympanic 75066 224 48362 0 59.00 mm[Hg] - Sitting 111.00 mm[Hg] - Sitting 98.40 Forehead Scan 95.00 % 56.00/ min 18.00/min 76342 224 22547 9 98.20 Forehead Scan 80303 224 22776 3 97.90 Tympanic 06752 225 98660 4 98.20 Tympanic 30686 225 64509 8 97.50 Forehead Scan 56466 228 53194 0 55.00 mm[Hg] - Sitting 118.00 mm[Hg] - Sitting 98.40 Tympanic 69.00/ min 18740 229 90444 8 78.00 mm[Hg] - Sitting 152.00 mm[Hg] - Sitting 00837 230 09523 0 62.00 mm[Hg] - Sitting 122.00 mm[Hg] - Sitting 27457 231 46766 7 72.00 mm[Hg] - Lying Down 140.00 mm[Hg] - Lying Down 35755 101 37869 3 97.70 Forehead Scan 54981 101 76035 1 254.10 NI 69.00/ min 48590 101 21940 9 72.00 mm[Hg] - Sitting 142.00 mm[Hg] - Sitting 97.70 Tympanic 18.00/min 73028 101 44583 3 72.00 mm[Hg] - Lying Down 142.00 mm[Hg] - Lying Down 43299 102 14992 8 68.00 mm[Hg] - Lying Down 152.00 mm[Hg] - Lying Down 10899 103 68624 5 74.00 mm[Hg] - Sitting 158.00 mm[Hg] - Sitting 27397 104 11162 9 78.00 mm[Hg] - Sitting 144.00 mm[Hg] - Sitting 98375 105 65724 5 68.00 mm[Hg] - Sitting 138.00 mm[Hg] - Sitting 92167 106 58549 1 70.00 mm[Hg] - Sitting 138.00 mm[Hg] - Sitting 29691 107 44194 1 67.00 mm[Hg] - Sitting 142.00 mm[Hg] - Sitting 72669 108 00973 0 74.00 mm[Hg] - Sitting 143.00 mm[Hg] - Sitting 01999 110 93069 6 85.00 mm[Hg] - Sitting 160.00 mm[Hg] - Sitting 97.80 Tympanic 93.00 % 76.00/ min 18.00/min 91455 111 54358 1 83.00 mm[Hg] - Sitting 129.00 mm[Hg] - Sitting 98.60 Tympanic 92.00 % 71.00/ min 18.00/min 19919 111 20772 5 60.00 mm[Hg] - Sitting 114.00 mm[Hg] [...]
--- OUTSIDE RECORDS SUMMARY | 2024-07-26 11:14 | External Medical Summary | Continuity Of Care Document ---
Author Name Unknown Address [address] [place] [id number] Organization [facility] () Care Team Providers Care Automotive Consultant Name Role Phone DO Pritchett Amy Primary Care Provider [phone] Allergies Allergy Reaction Start Date End Date Status AMINOGLYCOSIDES Active CIPRO Active GENTAMICIN Active NSAIDS (NON-STEROIDAL ANTI-INFLAMMATORY DRUG) 0 Active IBUPROFEN Active QUINOLONES Active VALIUM Active Medications Medication Instructions Dosage Start Date End Date Status Order Date Drug Code Frequency Route of Admin Diagnosis Code Substitutions Allowed Spikevax [id number](1 2y up)(PF) 50 mcg/0.5 mL intramuscul ar suspension [COVID wvc23-21(12 up)(andu)(P F)] 0.5mL Intramuscular 1 time Monitory 15 Minutes post injection for adverse effects; record site/temp For COVID 19 PREVENTION 0.5mL 01/02 Inactiv e 2023 96651 88781 4 1 time Intram uscula r False [facility] - Nurse initials indicate verificatio n that [id number] vaccine was administere d by [facility] jon 1 Intramuscular 1 time ( Indicate vaccine type) For vaccine 1 05/03 Inactiv e 2023 1 time Intram uscula r False Lisinopril 40 mg tablet [generic] TAKE ONE (1) TABLET BY MOUTH IN THE MORNING. For DX- HTN 1 2023 Active 2023 37193 89966 1 Once daily By Mouth False Tizanidine 2 mg tablet [generic] TAKE ONE (1) TABLET BY MOUTH ONCE DAILY For MUSCLE SPASM 1 2023 Active 2023 77677 41011 0 Once daily By Mouth M62.838 False Tamsulosin 0.4 mg capsule [generic] TAKE (1) CAPSULE BY MOUTH AT BEDTIME For SPASMS 1 2023 Active 2023 54773 62941 0 Once daily By Mouth False Aspirin 81 mg tablet Once daily 1 TABLET BY MOUTH IN THE MORNING For DX- CAD DO NOT CRUSH, CHEW OR BREAK 81 mg 06/12 Inactiv e 2023 Once daily By Mouth False Baclofen 20 mg tablet [generic] 20 mg By Mouth 4 times a day For DX- MUSCLE SPASMS 20 mg 12/12 Inactiv e 2023 80461 64120 1 4 times a day By Mouth False Calcium citrate 250 mg tablet Once daily 4 TABLET BY MOUTH For DX- SUPPLEMENT 250 mg calci 12/12 Inactiv e 2023 Once daily By Mouth False Co Q-10 100 mg capsule 100 mg By Mouth Once daily For DX- SUPPLEMENT 100 mg 06/20 Inactiv e 2023 22290 87041 5 Once daily By Mouth False Furosemide 20 mg tablet [generic] 20 mg By Mouth Once daily For DX-CHF 20 mg 12/12 Inactiv e 2023 94844 34254 0 Once daily By Mouth False Gabapentin 300 mg capsule [generic] 300 mg By Mouth 3 times a day For DX- NEUROPATHY 300 mg 12/12 Inactiv e 2023 03646 81731 4 3 times a day By Mouth False Loratadine 10 mg tablet [generic] 10 mg By Mouth Once daily For DX- ALLERGIES 10 mg 2023 Active 2023 62750 17006 1 Once daily By Mouth False Miralax 17 gram/dose oral powder 17 gram/dose By Mouth IN THE MORNING Mix 1 TABLESPOON IN 8 OZ OF FLUID HOLD FOR LOOSE STOOLS For DX- CONSTIPATION 17 gram/do se 12/12 Inactiv e 2023 32589 36472 0 Once daily By Mouth False Paroxetine 30 mg tablet [generic] 30 mg By Mouth Once daily For DX- DEPRESSION 30 mg 2023 00/00 /0000 Active 2023 57535 19521 3 Once daily By Mouth False Potassium citrate ER 15 mEq (1,620 mg) tablet,exte nded release [generic] 15 mEq By Mouth 3 times a day For DX- SUPPLEMENT/DI URETIC USE/ HYPOCITRAUIRA DO NOT CRUSH 15 mEq 12/12 Inactiv e 2023 86916 89531 1 3 times a day By Mouth [...] For DX- DANDRUFF 12/12 Inactiv e 2023 14238 94569 4 3 times a week Topica l False Acetaminoph en 325 mg tablet [generic] TAKE 2 TABS (650MG) BY MOUTH EVERY 4 HOURS NEEDED FOR TEMP >100 NOT TO EXCEED 3GM/24HRS TAKE 2 TABS (650MG) BY MOUTH EVERY 4 HOURS NEEDED FOR TEMP >100 NOT TO EXCEED 3GM/24HRS For DX-FEVER 2 12/12 Inactiv e 2023 21375 63064 0 By Mouth False MILK OF MAGNESIA ADMINISTER 30 ML BY MOUTH ONCE DAILY NEEDED FOR CONSTIPATION X3 DAYS WITH NO BM. For DX- CONSTIPATION 30ML 12/12 Inactiv e 2023 87859 20300 9 By Mouth False Enema Disposable 19 gram-7 gram/118 mL ADMINISTER ONE ENEMA RECTALLY ONCE DAILY NEEDED FOR CONSTIPATION ON DAY 6 OF NO BM For DX- CONSTIPATION 12/12 Inactiv e 2023 49981 86200 1 Rectal False TUMS EXTRA STR 750MG TAKE (1) TABLET BY MOUTH THREE TIMES DAILY NEEDED FOR INDIGESTION For DX- INDIGESTION 1 12/12 Inactiv e 2023 82240 18711 8 By Mouth False Vitamin D3 25 [...] CONSTIPATION 10 mg 12/12 Inactiv e 2023 82941 51685 1 Rectal False Melatonin 3 mg tablet [generic] 3 mg By Mouth As Needed For DX-INSOMMIA 3 mg 12/12 Inactiv e 2023 11446 01065 8 By Mouth False Hydrocortis one 1 % topical cream [generic] 1 % Topical As Needed For DX- PAIN 1 % 12/12 Inactiv e 2023 41252 14221 1 Topica l False HYDROCORTIS ONE/PARMOXI NE [...] 5-10 50 mg 12/20 Inactiv e 2023 95705 91770 0 Every 4 hours as needed By Mouth False Tylenol 325 mg tablet 325 mg By Mouth Every 4 hours as needed For DX- PAIN PRN FOR MILD PAIN, DO NOT EXCEED 3000MG APAP/24 HOURS 325 mg 12/20 Inactiv e 2023 69473 07954 0 Every 4 hours as needed By Mouth False Baclofen 20 mg tablet [generic] 20 mg By Mouth 4 times a day For MUSCLE SPASMS 20 mg 12/20 Inactiv e 2023 19733 72821 1 4 times a day By Mouth False Calcium citrate 250 mg tablet [generic] Once daily TAKE 4 TABLETS (1000MG) BY MOUTH For SUPPLEMENT 1000 MG 06/26 Inactiv e 2023 44312 30187 6 Once daily By Mouth False Dulcolax (bisacodyl) 10 mg rectal suppository 10 mg Rectal Once daily For CONSTIPATION *MAY HOLD FOR LOOSE STOOLS* 10 mg 2023 Active 2023 72391 84542 1 Once daily Rectal False Gabapentin 300 mg capsule [generic] 300 mg By Mouth 3 times a day For NEUROPATHY 300 mg 2023 Active 2023 75471 24942 4 3 times a day By Mouth False Potassium citrate ER 15 mEq (1,620 mg) tablet,exte nded release [generic] 15 mEq By Mouth 3 times a day For SUPPLEMENT/DI URETIC USE/HYPOCITRA URIA 15 mEq 06/11 Inactiv e 2023 81137 32449 1 3 times a day By Mouth False Potassium chloride ER 20 mEq tablet,exte nded release [generic] 20 mEq By Mouth 3 times a day *DO NOT CRUSH, CHEW OR BREAK* For SUPPLEMENT 20 mEq 12/18 Inactiv e 2023 20037 74971 1 3 times a day By Mouth False Tizanidine 4 mg tablet [generic] 4 mg By Mouth Once daily For MUSCLE SPASMS 4 mg 2023 Active 2023 26454 09576 0 Once daily By Mouth False Tylenol 325 mg tablet 2 tabs By Mouth Every 4 hours as needed For Fever >100 DO NOT EXCEED 3000 MG APAP/24 Hours 2 tabs 12/20 Inactiv e 2023 30039 06779 0 Every 4 hours as needed By Mouth False Dulcolax (bisacodyl) 10 mg rectal suppository Daily as needed For Constipation 1 sup 12/20 Inactiv e 2023 02749 02620 1 Daily as needed Rectal False Fleet Enema 19 gram-7 gram/118 mL 1 Rectal Daily as neededFor Constipation 1 12/20 Inactiv e 2023 19060 98204 6 Daily as needed Rectal False Milk of Magnesia 400 mg/5 mL oral suspension [Magnesium hydroxide] PRN 30ml By Mouth Daily as needed for constipation one time daily if no BM, on day 4 of no BM (PRN refer to instructions) For Constipation For Constipatioin 30ml 12/20 Inactiv e 2023 40900 01903 6 1 time By Mouth False Melatonin 3 mg tablet [generic] 3 mg By Mouth Once daily As Needed For INSOMNIA 3 mg 12/20 Inactiv e 2023 15586 78459 8 Once daily By Mouth False Hydrocortis one 1 % topical cream [generic] 1 % Rectal Four times daily as needed For hemorroid pain 1 % 12/20 Inactiv e 2023 93732 32412 1 Four times daily as needed Rectal False X-STGH ANTACID 750MG CHEW TAKE (1) TABLET BY MOUTH THREE TIMES DAILY NEEDED FOR INDIGESTION 12/20 Inactiv e 2023 08238 60920 4 Three times daily as needed Saline Mist 0.65 % nasal spray aerosol 0.65 % Nares Four times daily as needed For DRYNESS 0.65 % 12/20 Inactiv e 2023 15540 17509 8 Four times daily as needed Nares False Vicks Vaporub 4.7 %-1.2 %-2.6 % topical ointment Apply topically to chest Three times daily as needed For CONGESTION 4.7-1.2 -2.6 12/20 Inactiv e 2023 38366 92114 1 Three times daily as needed Topica l False VITAMIN D3 2000U CAP TAKE ONE (1) CAPSULE BY MOUTH DAILY* DO NOT CRUSH, CHEW OR BREAK* For Supplement 1 capsule 12/19 Inactiv e 2023 15184 25893 0 Once daily By Mouth False Potassium chloride ER 20 mEq tablet,exte nded release(par t/cryst) [generic] TAKE (1) TABLET BY MOUTH THREE TIMES DAILY (MORNING, AFTERNOON, EVENING)*DO NOT CRUSH, CHEW, OR BREAK* For SUPPLEMENT 20 MEQ 06/11 Inactiv e 2023 05631 00631 5 3 times a day By Mouth False Aspirin 81 mg tablet,camron yed release [generic] TAKE ONE (1) TABLET BY MOUTH ONCE DAILY*DO NOT CRUSH, CHEW OR BREAK* For CAD 81 MG 12/22 Inactiv e 2023 54218 65510 0 Once daily By Mouth False Furosemide 20 mg tablet [generic] TAKE 1 AND 1/2 TABLETS (30MG) BY MOUTH ONCE DAILY For CHF 30mg 2023 Active 2023 23248 68811 1 Once daily By Mouth False Polyethylen e glycol 3350 17 gram/dose oral powder [generic] MIX 17 GRAMS (1 CAPFUL) IN 60Z OF LIQUID AND DRINK BY MOUTH ONCE DAILY *HOLD FOR LOOSE STOOLS* For constipation 17 g 2023 Active 2023 47151 22740 3 Once daily By Mouth False Vitamin D3 50 mcg (2,000 unit) capsule Once daily TAKE ONE (1) CAPSULE BY MOUTH DAILY* DO NOT CRUSH, CHEW OR BREAK* For Supplement 1 capsule 02/07 Inactiv e 2023 02150 83347 2 Once daily By Mouth False Fleet Enema 19 gram-7 gram/118 mL 1 Rectal Daily as neededFor Constipation 1 2023 0000 Active 2023 58284 28206 6 Daily as needed Rectal False Tums E-X 300 mg (as calcium carbonate 750 mg) chewable tablet 1 tab By Mouth TAKE (1) TABLET BY MOUTH THREE TIMES DAILY NEEDED FOR INDIGESTION 1 tab 202300 /0000 Active 2023 02747 10215 1 Three times daily as needed By Mouth False Tylenol 325 mg tablet 2 tabs By Mouth Every 4 hours as needed For Fever >100 DO NOT EXCEED 3000 MG APAP/24 Hours 2 tabs 202300 /0000 Active 2023 69082 43540 0 Every 4 hours as needed By Mouth False Vicks Vaporub 4.7 %-1.2 %-2.6 % topical ointment Apply topically to chest Three times daily as needed For CONGESTION topical 202300 Active 2023 05055 05684 1 Three times daily as needed Topica l False Tylenol 325 mg tablet 2 tabs By Mouth Every 4 hours as needed For DX- PAIN PRN FOR MILD PAIN, DO NOT EXCEED 3000MG APAP/24 HOURS 2 tabs 202300 Active 2023 26574 65453 0 Every 4 hours as needed By Mouth False Tramadol 50 mg tablet [generic] 1 tab By Mouth Every 4 hours as needed For DX- PAIN 5-10 1 tab 03/10 Inactiv e 2023 56678 02128 0 Every 4 hours as needed By Mouth False Saline Mist 0.65 % nasal spray aerosol 2 sprays Nares Four times daily as needed For DRYNESS 2 sprays 202300 / Active 2023 12924 92489 8 Four times daily as needed Nares False Dulcolax (bisacodyl) 10 mg rectal suppository Daily as needed For Constipation 1 sup 202300 / Active 2023 95990 50888 1 Daily as needed Rectal False Hydrocortis one-pramoxi ne 1 %-1 % rectal cream [generic] 1 mague Rectal Four times daily as needed For hemorroid pain 1 mague 202300 /0000 Active 2023 09582 16959 4 Four times daily as needed Rectal False Melatonin 3 mg tablet [generic] 1 tab By Mouth At bedtime as needed For INSOMNIA 1 tab 12/24 Inactiv e 2023 74832 76545 8 At bedtime as needed By Mouth False Milk of Magnesia 400 mg/5 mL oral suspension 30ml By Mouth Daily as needed Daily as needed for constipation one time daily if no BM, on day 4 of no BM (PRN refer to instructions) For Constipation For Constipatioin 30ml 2023 Active 2023 47473 11392 2 Daily as needed By Mouth False Baclofen 20 mg tablet [generic] 20 mg By Mouth 4 times a day For MUSCLE SPASMS 20 mg 2023 Active 2023 25110 23047 1 4 times a day By Mouth False Melatonin 3 mg tablet [generic] 1 tab By Mouth At bedtime as needed For INSOMNIA 1 tab 2023 Active 2023 23661 27492 8 At bedtime as needed By Mouth False Bactrim DS 800 mg-160 mg tablet 1 tab By Mouth Twice daily For URINARY TRACT INFECTION, SITE NOT SPECIFIED 1 tab 01/06 Inactiv e 2023 52168 79206 1 Twice daily By Mouth N39.0 False Cefdinir 300 mg capsule [generic] 300 mg By Mouth Twice daily For UTI 300 mg 01/07 Inactiv e 2023 89061 95159 0 Twice daily By Mouth False Cefdinir 300 mg capsule [generic] 300 mg By Mouth Twice daily For UTI 300 mg 01/17 Inactiv e 2023 34177 40350 0 Twice daily By Mouth False Zyrtec 10 mg tablet 10 mg By Mouth Once daily For sinus congestion 10 mg 01/22 Inactiv e 2023 38699 95924 0 Once daily By Mouth False Tobramycin 0.3 %-dexametha sone 0.1 % eye drops,suspe nsion [generic] 0.3-0.1 % Left Eye 4 times a day For eye infection 0.3-0.1 % 02/05 Inactiv e 2023 00218 81453 5 4 times a day Left Eye False Fluconazole 150 mg tablet [generic] 150 mg By Mouth 1 time For yeast infection 150 mg 02/15 Inactiv e 2023 51057 12626 2 1 time By Mouth False Tramadol 50 mg tablet [generic] 1 tab By Mouth Every 4 hours as needed For DX- PAIN 5-10 1 tab 2023 00/00 /0000 Active 2023 06136 91143 0 Every 4 hours as needed By Mouth False Tobramycin 0.3 %-dexametha sone 0.1 % eye drops,suspe nsion [generic] 1 drop Left Eye 4 times a day For Inflammation of left eye 1 drop 05/08 Inactiv e 2023 43773 88572 5 4 times a day Left Eye False Voltaren Arthritis Pain 1 % topical gel 2 gm Topical Twice daily to rigth shoulder for 2 weeks For pain 2 gm 05/08 Inactiv e 2023 96971 00602 1 Twice daily Topica l False Chlorthalid one 25 mg tablet [generic] 12.5mg By Mouth Once daily For HTN 12.5mg 05/06 Inactiv e 2023 05221 53944 0 Once daily By Mouth False Chlorthalid one 25 mg tablet [generic] 12.5mg By Mouth Once daily For HTN 12.5mg 05/07 Inactiv e 2023 72818 48081 0 Once daily By Mouth False Chlorthalid one 25 mg tablet [generic] 05/07 Inactiv e 2023 86396 88879 0 Chlorthalid one 25 mg tablet [generic] 12.5mg By Mouth Once daily For HTN 12.5mg 06/26 Inactiv e 2023 13332 31664 0 Once daily By Mouth False Norvasc 5 mg tablet 5mg By Mouth Once daily, hold medication if systolic is less than 90 For HYPERTENSIVE HEART DISEASE WITHOUT HEART FAILURE 5mg 06/03 Inactiv e 2023 27801 64207 1 Once daily By Mouth I11.9 False Norvasc 5 mg tablet 5mg By Mouth Once daily, hold medication if systolic is less than 90 For HYPERTENSIVE HEART DISEASE WITHOUT HEART FAILURE 5mg 06/03 Inactiv e 2023 38400 99452 1 Once daily By Mouth I11.9 False Norvasc 5 mg tablet 5mg By Mouth Once daily, hold medication if systolic is less than 90 For HYPERTENSIVE HEART DISEASE WITHOUT HEART FAILURE 5mg 06/26 Inactiv e 2023 09875 88044 1 Once daily By Mouth I11.9 False [...] 10 mg 2023 00/00 /0000 Active 2023 89484 84747 1 Once daily By Mouth False DISCONTINUE [...] CAD 81 mg 06/14 Inactiv e 2023 22257 40965 9 Once daily By Mouth False Aspirin 81 mg tablet,camron yed release [generic] 06/14 Inactiv e 2023 13975 39464 9 Aspirin 81 mg tablet,camron yed release [generic] 81 mg By Mouth Once daily Do not crush, chew, or break For CAD 81 mg 06/154 Inactiv e 2023 97428 42652 9 Once daily By Mouth False Cefpodoxime 200 mg tablet [generic] 200mg By Mouth Twice daily For UTI 200mg 07/04 Inactiv e 2023 55148 61777 0 Twice daily By Mouth False Calcium citrate 250 mg tablet [generic] 06/26 Inactiv e 2023 59504 93824 6 Calcium citrate 250 mg tablet [generic] Once daily TAKE 4 TABLETS (1000MG) BY MOUTH For SUPPLEMENT 500 MG 2023 Active 2023 93560 89374 6 Once daily By Mouth False Norvasc 5 mg tablet 7.5 mg By Mouth Once daily Hold medication if SBP <90 For HYPERTENSIVE HEART DISEASE WITHOUT HEART FAILURE 7.5 mg 06/30 Inactiv e 2023 51635 80449 1 Once daily By Mouth I11.9 False Norvasc 5 mg tablet 7.5 mg By Mouth Once daily Hold medication if SBP <90 For HYPERTENSIVE HEART DISEASE WITHOUT HEART FAILURE 7.5 mg 07/06 Inactiv e 2023 26594 46198 1 Once daily By Mouth I11.9 False Simethicone 125 mg capsule [generic] 2 capule By Mouth Twice daily as needed For bloating/gas pain 2 capule 2023 Active 2023 56312 50463 0 Twice daily as needed By Mouth False Cepacol Sore Throat (benzocaine -menthol) 15 mg-2.6 mg lozenges 2 lozenges By Mouth Every 6 hours as needed For sore throat 2 lozenge s 2023 Active 2023 68366 15902 6 Every 6 hours as needed By Mouth False Cefepime 1 gram solution for injection [generic] 1g Intramuscular Every 12 hours 1g intramuscular ly ever 12 hours For UTI 1g 07/06 Inactiv e 2023 89158 34055 4 Every 12 hours Intram uscula r False Cefepime 1 gram solution for injection [generic] 07/06 Inactiv e 2023 20497 01675 4 Cefepime 1 gram solution for injection [generic] 1g Intramuscular Every 12 hours 1g intramuscular ly ever 12 hours For UTI Reconstitute with 2.4 ML of NSS. 1g 07/08 Inactiv e 2023 14837 31613 4 Every 12 hours Intram uscula r False Norvasc 5 mg tablet 07/06 Inactiv e 2023 41525 33038 1 I11.9 Norvasc 5 mg tablet 7.5 mg By Mouth Once daily Hold medication if SBP <90 For HYPERTENSIVE HEART DISEASE WITHOUT HEART FAILURE 7.5 mg 07/18 Inactiv e 2023 87465 10245 1 Once daily By Mouth I11.9 False Cefepime 1 gram solution for injection [generic] 07/08 Inactiv e 2023 98971 18422 4 Cefepime 1 gram solution for injection [generic] 1g Intramuscular Every 12 hours 1g intramuscular ly ever 12 hours For UTI Reconstitute with 2.4 ML of NSS. 1g 07/08 Inactiv e 2023 29219 88539 4 Every 12 hours Intram uscula r False Cefepime 1 gram solution for injection [generic] 07/08 Inactiv e 2023 37773 98026 4 Cefepime 1 gram solution for injection [generic] 1g Intramuscular Every 12 hours 1g intramuscular ly ever 12 hours For UTI Reconstitute with 2.4 ML of NSS. 1g 07/11 Inactiv e 2023 28881 01415 4 Every 12 hours Intram uscula r False Fleet Enema 19 gram-7 gram/118 mL 1 Rectal 1 time For constipation 1 07/16 Inactiv e 2024 57991 76107 6 1 time Rectal False Fleet Enema 19 gram-7 gram/118 mL 1 Rectal 1 time For constipation 1 07/17 Inactiv e 2024 91048 41930 6 1 time Rectal False Norvasc 5 mg tablet 7.5 mg By Mouth Once daily For HYPERTENSIVE HEART DISEASE WITHOUT HEART FAILURE 7.5 mg 2024 00/00 /0000 Active 2024 27792 71405 1 Once daily By Mouth I11.9 False Potassium chloride ER 20 mEq tablet,exte nded release(par t/cryst) [generic] 40 mEq By Mouth 1 time For low potassium prior to surgery 40 mEq 07/18 Inactiv e 2024 97980 56901 1 1 time By Mouth False Potassium chloride ER 20 mEq tablet,exte nded release(par t/cryst) [generic] 40 mEq By Mouth 1 time For low potassium prior to surgery 40 mEq 07/18 Inactiv e 2024 67164 98566 1 1 time By Mouth False Potassium chloride ER 20 mEq tablet,exte nded release(par t/cryst) [generic] 40 mEq By Mouth 1 time For low potassium 40 mEq 07/18 Inactiv e 2024 83468 03554 1 1 time By Mouth False Potassium chloride ER 20 mEq tablet,exte nded release(par t/cryst) [generic] 40 mEq By Mouth 1 time For low potassium 40 mEq 07/18 Inactiv e 2024 95646 24970 1 1 time By Mouth False Potassium chloride ER 20 mEq tablet,exte nded release [generic] 2 By Mouth 1 time For low potassium 2 07/19 Inactiv e 2024 05552 36091 1 1 time By Mouth False Potassium chloride ER 20 mEq tablet,exte nded release [generic] 2 capsules capsules By Mouth 1 time Please send capsule (2 capsules) For low potassium 2 capsule s 07/20 Inactiv e 2024 68665 56221 1 1 time By Mouth False Potassium chloride ER 20 mEq tablet,exte nded release(par t/cryst) [generic] TAKE (2) TABLETS (40MEQ) BY MOUTH X1 DOSE 07/20 Inactiv e 2024 66634 50626 5 Cefepime 1 gram solution for injection [generic] 1 gram Intramuscular Every 12 hours For Urinary Tract Infection 1 gram 07/21 Inactiv e 2024 31942 33956 4 Every 12 hours Intram uscula r False Cefepime 1 gram solution for injection [generic] 07/21 Inactiv e 2024 13711 81606 4 Cefepime 1 gram solution for injection [generic] 1 gram Intramuscular Every 12 hours For Urinary Tract Infection 1 gram 08/04 Active 2024 55395 94521 4 Every 12 hours Intram uscula r False Nystatin 100,000 unit/gram topical cream [generic] 100,000 unit Topical As Needed For DX- EXCORIATION 100,000 unit 12/12 Inactiv e 2023 05249 27202 5 Topica l False Vicks Vaporub 4.7 %-1.2 %-2.6 % topical ointment 4.7-1.2-2.6 Topical 3 times a day As Needed For DX- CONGESTION 4.7-1.2 -2.6 12/12 Inactiv e 2023 76513 46232 1 3 times a day Topica l False Ketoconazol e 2 % shampoo [generic] APPLY SHAMPOO TOPICALLY TO SCALP DURING HAIR WASHINGDX: ELVIA DERM OF SCALP For DX- ELVIA DERM OF SCALP 12/12 Inactiv e 2023 04820 24349 4 Topica l False THERA SILICONE SKIN GUARD Topical Twice daily 1 APPLICATION TOPICALLY IN THE MORNING AND AT BEDTIME TO SCROTUM For DX- PREVENTION 2023 00/00 / Active 2023 Twice daily Topica l False Selenium sulfide 2.5 % lotion [generic] 2.5 % Topical EVERY MONDAY, MONDAY AND MONDAY AFTER SHOWER For DANDRUFF 2.5 % 2023 00/00 / Active 2023 16567 48827 4 3 times a week Topica l False Nystatin (bulk) 100 million unit powder [generic] 100 million Topical Twice daily as needed For EXOCORATION 100 million 12/20 Inactiv e 2023 30015 40416 1 Twice daily as needed Topica l False Ketoconazol e 2 % shampoo [generic] Once daily APPLY SHAMPOO TOPICALLY TO SCALP DURING HAIR WASHING ON SHOWER DAYS- JOSHMICHELLELITTLE, SAT For ELVIA DERM OF SCAP 2 % 2023 Active 2023 24573 14050 4 Once daily Topica l False Nystatin 100,000 unit/gram topical cream [generic] 1 mague Topical Twice daily as needed For EXOCORATION 1 mague 06/05 Inactiv e 2023 08092 87243 5 Twice daily as needed Topica l False Nystatin 100,000 unit/gram topical powder [generic] 100,000 unit Topical Twice daily to scrotum with AM and PM care For Scrotal excoriation 100,000 unit 06/05 Inactiv e 2023 07369 47271 5 Twice daily Topica l False Problems [...] adjustment of urinary device 07/21/2023 Active 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 07/21 Active N31.9 [...] weight Temperature SpO2 Blood Sugar Pulse Respirations 82804 216 86038 1 254.10 NI 72828 216 50998 2 79.00 mm[Hg] - Sitting 157.00 mm[Hg] - Sitting 73 NI 254.10 NI 36.30 Tympanic 95.00 % 72.00/ min 16.00/min 41699 216 72043 4 98.80 Tympanic 52736 216 51270 2 78.00 mm[Hg] - Sitting 164.00 mm[Hg] - Sitting 43178 217 00240 3 98.20 Tympanic 72900 217 42655 5 73.00 mm[Hg] - Sitting 159.00 mm[Hg] - Sitting 85678 217 35049 9 98.40 Forehead Scan 30194 218 76893 3 97.90 Tympanic 96658 218 90764 5 77.00 mm[Hg] - Sitting 137.00 mm[Hg] - Sitting 86075 219 91031 0 97.70 Tympanic 39416 219 47862 6 97.60 Tympanic 79790 219 79109 4 76.00 mm[Hg] - Sitting 139.00 mm[Hg] - Sitting 76025 219 88274 4 97.80 Forehead Scan 66966 220 47499 9 97.90 Tympanic 91545 220 82065 9 76.00 mm[Hg] - Sitting 138.00 mm[Hg] - Sitting 55364 220 20573 6 98.10 Tympanic 61017 221 38200 5 67.00 mm[Hg] - Sitting 142.00 mm[Hg] - Sitting 65395 221 15603 8 98.20 Tympanic 08858 221 21255 0 98.30 Tympanic 38228 222 31351 7 98.20 Tympanic 77889 222 53478 8 97.90 Tympanic 34375 223 33595 3 98.20 Tympanic 01794 223 85459 3 98.00 Tympanic 82998 224 56081 0 59.00 mm[Hg] - Sitting 111.00 mm[Hg] - Sitting 98.40 Forehead Scan 95.00 % 56.00/ min 18.00/min 01520 224 63074 9 98.20 Forehead Scan 35376 224 08024 3 97.90 Tympanic 11023 225 33808 4 98.20 Tympanic 05693 225 34203 8 97.50 Forehead Scan 00181 228 52669 0 55.00 mm[Hg] - Sitting 118.00 mm[Hg] - Sitting 98.40 Tympanic 69.00/ min 70720 229 55062 8 78.00 mm[Hg] - Sitting 152.00 mm[Hg] - Sitting 08791 230 11042 0 62.00 mm[Hg] - Sitting 122.00 mm[Hg] - Sitting 38198 231 41151 7 72.00 mm[Hg] - Lying Down 140.00 mm[Hg] - Lying Down 02448 101 33421 3 97.70 Forehead Scan 26800 101 64951 1 254.10 NI 69.00/ min 71649 101 65661 9 72.00 mm[Hg] - Sitting 142.00 mm[Hg] - Sitting 97.70 Tympanic 18.00/min 45085 101 86053 3 72.00 mm[Hg] - Lying Down 142.00 mm[Hg] - Lying Down 83487 102 82131 8 68.00 mm[Hg] - Lying Down 152.00 mm[Hg] - Lying Down 54211 103 79974 5 74.00 mm[Hg] - Sitting 158.00 mm[Hg] - Sitting 53032 104 56185 9 78.00 mm[Hg] - Sitting 144.00 mm[Hg] - Sitting 03373 105 48042 5 68.00 mm[Hg] - Sitting 138.00 mm[Hg] - Sitting 04562 106 88338 1 70.00 mm[Hg] - Sitting 138.00 mm[Hg] - Sitting 28393 107 56570 1 67.00 mm[Hg] - Sitting 142.00 mm[Hg] - Sitting 10559 108 35489 0 74.00 mm[Hg] - Sitting 143.00 mm[Hg] - Sitting 60703 110 61174 6 85.00 mm[Hg] - Sitting 160.00 mm[Hg] - Sitting 97.80 Tympanic 93.00 % 76.00/ min 18.00/min 43752 111 45682 1 83.00 mm[Hg] - Sitting 129.00 mm[Hg] - Sitting 98.60 Tympanic 92.00 % 71.00/ min 18.00/min 44655 111 37971 5 60.00 mm[Hg] - Sitting 114.00 mm[Hg] [...]
--- OUTSIDE RECORDS SUMMARY | 2024-07-26 11:14 | External Medical Summary | Continuity Of Care Document ---
Author Name Unknown Address [address] [place] [address] Organization [facility] () Care Team Providers Care Sorter/Assay Tech Name Role Phone DO Pritchett Amy Primary Care Provider [phone] Allergies Allergy Reaction Start Date End Date Status AMINOGLYCOSIDES Active CIPRO Active GENTAMICIN Active NSAIDS (NON-STEROIDAL ANTI-INFLAMMATORY DRUG) 0 Active IBUPROFEN Active QUINOLONES Active VALIUM Active Medications Medication Instructions Dosage Start Date End Date Status Order Date Drug Code Frequency Route of Admin Diagnosis Code Substitutions Allowed Spikevax [id number](1 2y up)(PF) 50 mcg/0.5 mL intramuscul ar suspension [COVID [id number](12 up)(andu)(P F)] 0.5mL Intramuscular 1 time Monitory 15 Minutes post injection for adverse effects; record site/temp For COVID 19 PREVENTION 0.5mL 01/02 Inactiv e 2023 67890 01073 4 1 time Intram uscula r False [facility] - Nurse initials indicate verificatio n that [id number] vaccine was administere d by [facility] Representat jon 1 Intramuscular 1 time ( Indicate vaccine type) For vaccine 1 05/03 Inactiv e 2023 1 time Intram uscula r False Lisinopril 40 mg tablet [generic] TAKE ONE (1) TABLET BY MOUTH IN THE MORNING. For DX- HTN 1 2023 Active 2023 00639 66706 1 Once daily By Mouth False Tizanidine 2 mg tablet [generic] TAKE ONE (1) TABLET BY MOUTH ONCE DAILY For MUSCLE SPASM 1 2023 Active 2023 42503 39478 0 Once daily By Mouth M62.838 False Tamsulosin 0.4 mg capsule [generic] TAKE (1) CAPSULE BY MOUTH AT BEDTIME For SPASMS 1 2023 Active 2023 96633 08939 0 Once daily By Mouth False Aspirin 81 mg tablet Once daily 1 TABLET BY MOUTH IN THE MORNING For DX- CAD DO NOT CRUSH, CHEW OR BREAK 81 mg 06/12 Inactiv e 2023 Once daily By Mouth False Baclofen 20 mg tablet [generic] 20 mg By Mouth 4 times a day For DX- MUSCLE SPASMS 20 mg 12/12 Inactiv e 2023 15389 17945 1 4 times a day By Mouth False Calcium citrate 250 mg tablet Once daily 4 TABLET BY MOUTH For DX- SUPPLEMENT 250 mg calci 12/12 Inactiv e 2023 Once daily By Mouth False Co Q-10 100 mg capsule 100 mg By Mouth Once daily For DX- SUPPLEMENT 100 mg 06/20 Inactiv e 2023 43867 03487 5 Once daily By Mouth False Furosemide 20 mg tablet [generic] 20 mg By Mouth Once daily For DX-CHF 20 mg 12/12 Inactiv e 2023 55278 42353 0 Once daily By Mouth False Gabapentin 300 mg capsule [generic] 300 mg By Mouth 3 times a day For DX- NEUROPATHY 300 mg 12/12 Inactiv e 2023 54481 71744 4 3 times a day By Mouth False Loratadine 10 mg tablet [generic] 10 mg By Mouth Once daily For DX- ALLERGIES 10 mg 2023 Active 2023 01572 91291 1 Once daily By Mouth False Miralax 17 gram/dose oral powder 17 gram/dose By Mouth IN THE MORNING Mix 1 TABLESPOON IN 8 OZ OF FLUID HOLD FOR LOOSE STOOLS For DX- CONSTIPATION 17 gram/do se 12/12 Inactiv e 2023 90730 42787 0 Once daily By Mouth False Paroxetine 30 mg tablet [generic] 30 mg By Mouth Once daily For DX- DEPRESSION 30 mg 2023 00/00 /0000 Active 2023 53402 71470 3 Once daily By Mouth False Potassium citrate ER 15 mEq (1,620 mg) tablet,exte nded release [generic] 15 mEq By Mouth 3 times a day For DX- SUPPLEMENT/DI URETIC USE/ HYPOCITRAUIRA DO NOT CRUSH 15 mEq 12/12 Inactiv e 2023 18410 43382 1 3 times a day By Mouth [...] For DX- DANDRUFF 12/12 Inactiv e 2023 01578 03327 4 3 times a week Topica l False Acetaminoph en 325 mg tablet [generic] TAKE 2 TABS (650MG) BY MOUTH EVERY 4 HOURS NEEDED FOR TEMP >100 NOT TO EXCEED 3GM/24HRS TAKE 2 TABS (650MG) BY MOUTH EVERY 4 HOURS NEEDED FOR TEMP >100 NOT TO EXCEED 3GM/24HRS For DX-FEVER 2 12/12 Inactiv e 2023 25827 19538 0 By Mouth False MILK OF MAGNESIA ADMINISTER 30 ML BY MOUTH ONCE DAILY NEEDED FOR CONSTIPATION X3 DAYS WITH NO BM. For DX- CONSTIPATION 30ML 12/12 Inactiv e 2023 31458 07930 9 By Mouth False Enema Disposable 19 gram-7 gram/118 mL ADMINISTER ONE ENEMA RECTALLY ONCE DAILY NEEDED FOR CONSTIPATION ON DAY 6 OF NO BM For DX- CONSTIPATION 12/12 Inactiv e 2023 05606 40770 1 Rectal False TUMS EXTRA STR 750MG TAKE (1) TABLET BY MOUTH THREE TIMES DAILY NEEDED FOR INDIGESTION For DX- INDIGESTION 1 12/12 Inactiv e 2023 56194 37717 8 By Mouth False Vitamin D3 25 [...] CONSTIPATION 10 mg 12/12 Inactiv e 2023 73232 16910 1 Rectal False Melatonin 3 mg tablet [generic] 3 mg By Mouth As Needed For DX-INSOMMIA 3 mg 12/12 Inactiv e 2023 07963 46023 8 By Mouth False Hydrocortis one 1 % topical cream [generic] 1 % Topical As Needed For DX- PAIN 1 % 12/12 Inactiv e 2023 00153 72459 1 Topica l False HYDROCORTIS ONE/PARMOXI NE [...] 5-10 50 mg 12/20 Inactiv e 2023 73657 09522 0 Every 4 hours as needed By Mouth False Tylenol 325 mg tablet 325 mg By Mouth Every 4 hours as needed For DX- PAIN PRN FOR MILD PAIN, DO NOT EXCEED 3000MG APAP/24 HOURS 325 mg 12/20 Inactiv e 2023 94691 27554 0 Every 4 hours as needed By Mouth False Baclofen 20 mg tablet [generic] 20 mg By Mouth 4 times a day For MUSCLE SPASMS 20 mg 12/20 Inactiv e 2023 37368 44239 1 4 times a day By Mouth False Calcium citrate 250 mg tablet [generic] Once daily TAKE 4 TABLETS (1000MG) BY MOUTH For SUPPLEMENT 1000 MG 06/26 Inactiv e 2023 39736 48645 6 Once daily By Mouth False Dulcolax (bisacodyl) 10 mg rectal suppository 10 mg Rectal Once daily For CONSTIPATION *MAY HOLD FOR LOOSE STOOLS* 10 mg 2023 Active 2023 06505 52581 1 Once daily Rectal False Gabapentin 300 mg capsule [generic] 300 mg By Mouth 3 times a day For NEUROPATHY 300 mg 2023 Active 2023 46211 42679 4 3 times a day By Mouth False Potassium citrate ER 15 mEq (1,620 mg) tablet,exte nded release [generic] 15 mEq By Mouth 3 times a day For SUPPLEMENT/DI URETIC USE/HYPOCITRA URIA 15 mEq 06/11 Inactiv e 2023 12743 74328 1 3 times a day By Mouth False Potassium chloride ER 20 mEq tablet,exte nded release [generic] 20 mEq By Mouth 3 times a day *DO NOT CRUSH, CHEW OR BREAK* For SUPPLEMENT 20 mEq 12/18 Inactiv e 2023 35601 80447 1 3 times a day By Mouth False Tizanidine 4 mg tablet [generic] 4 mg By Mouth Once daily For MUSCLE SPASMS 4 mg 2023 Active 2023 62490 09727 0 Once daily By Mouth False Tylenol 325 mg tablet 2 tabs By Mouth Every 4 hours as needed For Fever >100 DO NOT EXCEED 3000 MG APAP/24 Hours 2 tabs 12/20 Inactiv e 2023 71923 47713 0 Every 4 hours as needed By Mouth False Dulcolax (bisacodyl) 10 mg rectal suppository Daily as needed For Constipation 1 sup 12/20 Inactiv e 2023 75252 00289 1 Daily as needed Rectal False Fleet Enema 19 gram-7 gram/118 mL 1 Rectal Daily as neededFor Constipation 1 12/20 Inactiv e 2023 67108 23456 6 Daily as needed Rectal False Milk of Magnesia 400 mg/5 mL oral suspension [Magnesium hydroxide] PRN 30ml By Mouth Daily as needed for constipation one time daily if no BM, on day 4 of no BM (PRN refer to instructions) For Constipation For Constipatioin 30ml 12/20 Inactiv e 2023 81166 96304 6 1 time By Mouth False Melatonin 3 mg tablet [generic] 3 mg By Mouth Once daily As Needed For INSOMNIA 3 mg 12/20 Inactiv e 2023 19170 34034 8 Once daily By Mouth False Hydrocortis one 1 % topical cream [generic] 1 % Rectal Four times daily as needed For hemorroid pain 1 % 12/20 Inactiv e 2023 78606 36425 1 Four times daily as needed Rectal False X-STGH ANTACID 750MG CHEW TAKE (1) TABLET BY MOUTH THREE TIMES DAILY NEEDED FOR INDIGESTION 12/20 Inactiv e 2023 45475 91027 4 Three times daily as needed Saline Mist 0.65 % nasal spray aerosol 0.65 % Nares Four times daily as needed For DRYNESS 0.65 % 12/20 Inactiv e 2023 76061 37389 8 Four times daily as needed Nares False Vicks Vaporub 4.7 %-1.2 %-2.6 % topical ointment Apply topically to chest Three times daily as needed For CONGESTION 4.7-1.2 -2.6 12/20 Inactiv e 2023 04644 36415 1 Three times daily as needed Topica l False VITAMIN D3 2000U CAP TAKE ONE (1) CAPSULE BY MOUTH DAILY* DO NOT CRUSH, CHEW OR BREAK* For Supplement 1 capsule 12/19 Inactiv e 2023 24299 80785 0 Once daily By Mouth False Potassium chloride ER 20 mEq tablet,exte nded release(par t/cryst) [generic] TAKE (1) TABLET BY MOUTH THREE TIMES DAILY (MORNING, AFTERNOON, EVENING)*DO NOT CRUSH, CHEW, OR BREAK* For SUPPLEMENT 20 MEQ 06/11 Inactiv e 2023 25322 99680 5 3 times a day By Mouth False Aspirin 81 mg tablet,camron yed release [generic] TAKE ONE (1) TABLET BY MOUTH ONCE DAILY*DO NOT CRUSH, CHEW OR BREAK* For CAD 81 MG 12/22 Inactiv e 2023 84153 50600 0 Once daily By Mouth False Furosemide 20 mg tablet [generic] TAKE 1 AND 1/2 TABLETS (30MG) BY MOUTH ONCE DAILY For CHF 30mg 2023 Active 2023 35967 44138 1 Once daily By Mouth False Polyethylen e glycol 3350 17 gram/dose oral powder [generic] MIX 17 GRAMS (1 CAPFUL) IN 60Z OF LIQUID AND DRINK BY MOUTH ONCE DAILY *HOLD FOR LOOSE STOOLS* For constipation 17 g 2023 Active 2023 75994 16355 3 Once daily By Mouth False Vitamin D3 50 mcg (2,000 unit) capsule Once daily TAKE ONE (1) CAPSULE BY MOUTH DAILY* DO NOT CRUSH, CHEW OR BREAK* For Supplement 1 capsule 02/07 Inactiv e 2023 81432 70873 2 Once daily By Mouth False Fleet Enema 19 gram-7 gram/118 mL 1 Rectal Daily as neededFor Constipation 1 2023 0000 Active 2023 02440 60045 6 Daily as needed Rectal False Tums E-X 300 mg (as calcium carbonate 750 mg) chewable tablet 1 tab By Mouth TAKE (1) TABLET BY MOUTH THREE TIMES DAILY NEEDED FOR INDIGESTION 1 tab 202300 /0000 Active 2023 45274 43506 1 Three times daily as needed By Mouth False Tylenol 325 mg tablet 2 tabs By Mouth Every 4 hours as needed For Fever >100 DO NOT EXCEED 3000 MG APAP/24 Hours 2 tabs 202300 /0000 Active 2023 44478 30370 0 Every 4 hours as needed By Mouth False Vicks Vaporub 4.7 %-1.2 %-2.6 % topical ointment Apply topically to chest Three times daily as needed For CONGESTION topical 202300 Active 2023 89462 20609 1 Three times daily as needed Topica l False Tylenol 325 mg tablet 2 tabs By Mouth Every 4 hours as needed For DX- PAIN PRN FOR MILD PAIN, DO NOT EXCEED 3000MG APAP/24 HOURS 2 tabs 202300 Active 2023 92722 87130 0 Every 4 hours as needed By Mouth False Tramadol 50 mg tablet [generic] 1 tab By Mouth Every 4 hours as needed For DX- PAIN 5-10 1 tab 03/10 Inactiv e 2023 49407 77910 0 Every 4 hours as needed By Mouth False Saline Mist 0.65 % nasal spray aerosol 2 sprays Nares Four times daily as needed For DRYNESS 2 sprays 202300 / Active 2023 94329 12864 8 Four times daily as needed Nares False Dulcolax (bisacodyl) 10 mg rectal suppository Daily as needed For Constipation 1 sup 202300 / Active 2023 37813 42078 1 Daily as needed Rectal False Hydrocortis one-pramoxi ne 1 %-1 % rectal cream [generic] 1 mague Rectal Four times daily as needed For hemorroid pain 1 mague 202300 /0000 Active 2023 92246 92061 4 Four times daily as needed Rectal False Melatonin 3 mg tablet [generic] 1 tab By Mouth At bedtime as needed For INSOMNIA 1 tab 12/24 Inactiv e 2023 95047 91227 8 At bedtime as needed By Mouth False Milk of Magnesia 400 mg/5 mL oral suspension 30ml By Mouth Daily as needed Daily as needed for constipation one time daily if no BM, on day 4 of no BM (PRN refer to instructions) For Constipation For Constipatioin 30ml 2023 Active 2023 51816 11236 2 Daily as needed By Mouth False Baclofen 20 mg tablet [generic] 20 mg By Mouth 4 times a day For MUSCLE SPASMS 20 mg 2023 Active 2023 54681 29494 1 4 times a day By Mouth False Melatonin 3 mg tablet [generic] 1 tab By Mouth At bedtime as needed For INSOMNIA 1 tab 2023 Active 2023 32825 18473 8 At bedtime as needed By Mouth False Bactrim DS 800 mg-160 mg tablet 1 tab By Mouth Twice daily For URINARY TRACT INFECTION, SITE NOT SPECIFIED 1 tab 01/06 Inactiv e 2023 62624 99063 1 Twice daily By Mouth N39.0 False Cefdinir 300 mg capsule [generic] 300 mg By Mouth Twice daily For UTI 300 mg 01/07 Inactiv e 2023 48056 18391 0 Twice daily By Mouth False Cefdinir 300 mg capsule [generic] 300 mg By Mouth Twice daily For UTI 300 mg 01/17 Inactiv e 2023 14664 69114 0 Twice daily By Mouth False Zyrtec 10 mg tablet 10 mg By Mouth Once daily For sinus congestion 10 mg 01/22 Inactiv e 2023 58823 80338 0 Once daily By Mouth False Tobramycin 0.3 %-dexametha sone 0.1 % eye drops,suspe nsion [generic] 0.3-0.1 % Left Eye 4 times a day For eye infection 0.3-0.1 % 02/05 Inactiv e 2023 18607 89928 5 4 times a day Left Eye False Fluconazole 150 mg tablet [generic] 150 mg By Mouth 1 time For yeast infection 150 mg 02/15 Inactiv e 2023 02634 72600 2 1 time By Mouth False Tramadol 50 mg tablet [generic] 1 tab By Mouth Every 4 hours as needed For DX- PAIN 5-10 1 tab 2023 00/00 /0000 Active 2023 37866 19786 0 Every 4 hours as needed By Mouth False Tobramycin 0.3 %-dexametha sone 0.1 % eye drops,suspe nsion [generic] 1 drop Left Eye 4 times a day For Inflammation of left eye 1 drop 05/08 Inactiv e 2023 19499 93955 5 4 times a day Left Eye False Voltaren Arthritis Pain 1 % topical gel 2 gm Topical Twice daily to rigth shoulder for 2 weeks For pain 2 gm 05/08 Inactiv e 2023 42938 08363 1 Twice daily Topica l False Chlorthalid one 25 mg tablet [generic] 12.5mg By Mouth Once daily For HTN 12.5mg 05/06 Inactiv e 2023 87496 99005 0 Once daily By Mouth False Chlorthalid one 25 mg tablet [generic] 12.5mg By Mouth Once daily For HTN 12.5mg 05/07 Inactiv e 2023 66297 16392 0 Once daily By Mouth False Chlorthalid one 25 mg tablet [generic] 05/07 Inactiv e 2023 96641 82445 0 Chlorthalid one 25 mg tablet [generic] 12.5mg By Mouth Once daily For HTN 12.5mg 06/26 Inactiv e 2023 60454 03470 0 Once daily By Mouth False Norvasc 5 mg tablet 5mg By Mouth Once daily, hold medication if systolic is less than 90 For HYPERTENSIVE HEART DISEASE WITHOUT HEART FAILURE 5mg 06/03 Inactiv e 2023 66071 38984 1 Once daily By Mouth I11.9 False Norvasc 5 mg tablet 5mg By Mouth Once daily, hold medication if systolic is less than 90 For HYPERTENSIVE HEART DISEASE WITHOUT HEART FAILURE 5mg 06/03 Inactiv e 2023 83415 85902 1 Once daily By Mouth I11.9 False Norvasc 5 mg tablet 5mg By Mouth Once daily, hold medication if systolic is less than 90 For HYPERTENSIVE HEART DISEASE WITHOUT HEART FAILURE 5mg 06/26 Inactiv e 2023 41995 27804 1 Once daily By Mouth I11.9 False [...] 10 mg 2023 00/00 /0000 Active 2023 38951 04070 1 Once daily By Mouth False DISCONTINUE [...] CAD 81 mg 06/14 Inactiv e 2023 98242 58251 9 Once daily By Mouth False Aspirin 81 mg tablet,camron yed release [generic] 06/14 Inactiv e 2023 00958 67785 9 Aspirin 81 mg tablet,camron yed release [generic] 81 mg By Mouth Once daily Do not crush, chew, or break For CAD 81 mg 06/154 Inactiv e 2023 76345 43997 9 Once daily By Mouth False Cefpodoxime 200 mg tablet [generic] 200mg By Mouth Twice daily For UTI 200mg 07/04 Inactiv e 2023 11608 37051 0 Twice daily By Mouth False Calcium citrate 250 mg tablet [generic] 06/26 Inactiv e 2023 63101 14011 6 Calcium citrate 250 mg tablet [generic] Once daily TAKE 4 TABLETS (1000MG) BY MOUTH For SUPPLEMENT 500 MG 2023 Active 2023 30829 98236 6 Once daily By Mouth False Norvasc 5 mg tablet 7.5 mg By Mouth Once daily Hold medication if SBP <90 For HYPERTENSIVE HEART DISEASE WITHOUT HEART FAILURE 7.5 mg 06/30 Inactiv e 2023 15765 64223 1 Once daily By Mouth I11.9 False Norvasc 5 mg tablet 7.5 mg By Mouth Once daily Hold medication if SBP <90 For HYPERTENSIVE HEART DISEASE WITHOUT HEART FAILURE 7.5 mg 07/06 Inactiv e 2023 56159 54212 1 Once daily By Mouth I11.9 False Simethicone 125 mg capsule [generic] 2 capule By Mouth Twice daily as needed For bloating/gas pain 2 capule 2023 Active 2023 72089 68680 0 Twice daily as needed By Mouth False Cepacol Sore Throat (benzocaine -menthol) 15 mg-2.6 mg lozenges 2 lozenges By Mouth Every 6 hours as needed For sore throat 2 lozenge s 2023 Active 2023 83073 71556 6 Every 6 hours as needed By Mouth False Cefepime 1 gram solution for injection [generic] 1g Intramuscular Every 12 hours 1g intramuscular ly ever 12 hours For UTI 1g 07/06 Inactiv e 2023 92967 55303 4 Every 12 hours Intram uscula r False Cefepime 1 gram solution for injection [generic] 07/06 Inactiv e 2023 58303 38296 4 Cefepime 1 gram solution for injection [generic] 1g Intramuscular Every 12 hours 1g intramuscular ly ever 12 hours For UTI Reconstitute with 2.4 ML of NSS. 1g 07/08 Inactiv e 2023 20031 82709 4 Every 12 hours Intram uscula r False Norvasc 5 mg tablet 07/06 Inactiv e 2023 32606 98200 1 I11.9 Norvasc 5 mg tablet 7.5 mg By Mouth Once daily Hold medication if SBP <90 For HYPERTENSIVE HEART DISEASE WITHOUT HEART FAILURE 7.5 mg 07/18 Inactiv e 2023 63166 36254 1 Once daily By Mouth I11.9 False Cefepime 1 gram solution for injection [generic] 07/08 Inactiv e 2023 97862 71747 4 Cefepime 1 gram solution for injection [generic] 1g Intramuscular Every 12 hours 1g intramuscular ly ever 12 hours For UTI Reconstitute with 2.4 ML of NSS. 1g 07/08 Inactiv e 2023 95156 41134 4 Every 12 hours Intram uscula r False Cefepime 1 gram solution for injection [generic] 07/08 Inactiv e 2023 59944 15290 4 Cefepime 1 gram solution for injection [generic] 1g Intramuscular Every 12 hours 1g intramuscular ly ever 12 hours For UTI Reconstitute with 2.4 ML of NSS. 1g 07/11 Inactiv e 2023 59863 98586 4 Every 12 hours Intram uscula r False Fleet Enema 19 gram-7 gram/118 mL 1 Rectal 1 time For constipation 1 07/16 Inactiv e 2024 53366 74831 6 1 time Rectal False Fleet Enema 19 gram-7 gram/118 mL 1 Rectal 1 time For constipation 1 07/17 Inactiv e 2024 10099 80804 6 1 time Rectal False Norvasc 5 mg tablet 7.5 mg By Mouth Once daily For HYPERTENSIVE HEART DISEASE WITHOUT HEART FAILURE 7.5 mg 2024 00/00 /0000 Active 2024 35065 44842 1 Once daily By Mouth I11.9 False Potassium chloride ER 20 mEq tablet,exte nded release(par t/cryst) [generic] 40 mEq By Mouth 1 time For low potassium prior to surgery 40 mEq 07/18 Inactiv e 2024 12915 91061 1 1 time By Mouth False Potassium chloride ER 20 mEq tablet,exte nded release(par t/cryst) [generic] 40 mEq By Mouth 1 time For low potassium prior to surgery 40 mEq 07/18 Inactiv e 2024 50233 50939 1 1 time By Mouth False Potassium chloride ER 20 mEq tablet,exte nded release(par t/cryst) [generic] 40 mEq By Mouth 1 time For low potassium 40 mEq 07/18 Inactiv e 2024 06687 42623 1 1 time By Mouth False Potassium chloride ER 20 mEq tablet,exte nded release(par t/cryst) [generic] 40 mEq By Mouth 1 time For low potassium 40 mEq 07/18 Inactiv e 2024 78595 07851 1 1 time By Mouth False Potassium chloride ER 20 mEq tablet,exte nded release [generic] 2 By Mouth 1 time For low potassium 2 07/19 Inactiv e 2024 90600 10059 1 1 time By Mouth False Potassium chloride ER 20 mEq tablet,exte nded release [generic] 2 capsules capsules By Mouth 1 time Please send capsule (2 capsules) For low potassium 2 capsule s 07/20 Inactiv e 2024 06764 84602 1 1 time By Mouth False Potassium chloride ER 20 mEq tablet,exte nded release(par t/cryst) [generic] TAKE (2) TABLETS (40MEQ) BY MOUTH X1 DOSE 07/20 Inactiv e 2024 82268 45861 5 Cefepime 1 gram solution for injection [generic] 1 gram Intramuscular Every 12 hours For Urinary Tract Infection 1 gram 07/21 Inactiv e 2024 67861 29172 4 Every 12 hours Intram uscula r False Cefepime 1 gram solution for injection [generic] 07/21 Inactiv e 2024 41127 08409 4 Cefepime 1 gram solution for injection [generic] 1 gram Intramuscular Every 12 hours For Urinary Tract Infection 1 gram 07/22 Inactiv e 2024 71210 31457 4 Every 12 hours Intram uscula r False Cefepime 1 gram solution for injection [generic] 1 gram Intramuscular Every 12 hours For Urinary Tract Infection 1 gram 08/06 Active 2024 05475 70551 4 Every 12 hours Intram uscula r False Nystatin 100,000 unit/gram topical cream [generic] 100,000 unit Topical As Needed For DX- EXCORIATION 100,000 unit 12/12 Inactiv e 2023 73316 71587 5 Topica l False Vicks Vaporub 4.7 %-1.2 %-2.6 % topical ointment 4.7-1.2-2.6 Topical 3 times a day As Needed For DX- CONGESTION 4.7-1.2 -2.6 12/12 Inactiv e 2023 28064 07378 1 3 times a day Topica l False Ketoconazol e 2 % shampoo [generic] APPLY SHAMPOO TOPICALLY TO SCALP DURING HAIR WASHINGDX: ELVIA DERM OF SCALP For DX- ELVIA DERM OF SCALP 12/12 Inactiv e 2023 94432 97552 4 Topica l False THERA SILICONE SKIN GUARD Topical Twice daily 1 APPLICATION TOPICALLY IN THE MORNING AND AT BEDTIME TO SCROTUM For DX- PREVENTION 2023 00/00 /0000 Active 2023 Twice daily Topica l False Selenium sulfide 2.5 % lotion [generic] 2.5 % Topical EVERY MONDAY, MONDAY AND MONDAY AFTER SHOWER For DANDRUFF 2.5 % 2023 Active 2023 78743 66526 4 3 times a week Topica l False Nystatin (bulk) 100 million unit powder [generic] 100 million Topical Twice daily as needed For EXOCORATION 100 million 12/20 Inactiv e 2023 15002 03759 1 Twice daily as needed Topica l False Ketoconazol e 2 % shampoo [generic] Once daily APPLY SHAMPOO TOPICALLY TO SCALP DURING HAIR WASHING ON SHOWER DAYS- , , SAT For ELVIA DERM OF SCAP 2 % 2023 Active 2023 25223 97792 4 Once daily Topica l False Nystatin 100,000 unit/gram topical cream [generic] 1 mague Topical Twice daily as needed For EXOCORATION 1 mague 06/05 Inactiv e 2023 69638 74032 5 Twice daily as needed Topica l False Nystatin 100,000 unit/gram topical powder [generic] 100,000 unit Topical Twice daily to scrotum with AM and PM care For Scrotal excoriation 100,000 unit 06/05 Inactiv e 2023 10920 00660 5 Twice daily Topica l False Problems [...] adjustment of urinary device 07/21/2023 Active Z79.01 residential (current) use of anticoagulants 07/21 Active N31.9 [...] weight Temperature SpO2 Blood Sugar Pulse Respirations 58264 216 51519 1 254.10 NI 44022 216 24624 2 79.00 mm[Hg] - Sitting 157.00 mm[Hg] - Sitting 73 NI 254.10 NI 36.30 Tympanic 95.00 % 72.00/ min 16.00/min 11301 216 65288 4 98.80 Tympanic 31612 216 31376 2 78.00 mm[Hg] - Sitting 164.00 mm[Hg] - Sitting 83298 217 26402 3 98.20 Tympanic 86302 217 71522 5 73.00 mm[Hg] - Sitting 159.00 mm[Hg] - Sitting 29506 217 84493 9 98.40 Forehead Scan 44005 218 43369 3 97.90 Tympanic 16915 218 05349 5 77.00 mm[Hg] - Sitting 137.00 mm[Hg] - Sitting 58145 219 67905 0 97.70 Tympanic 74205 219 68479 6 97.60 Tympanic 76286 219 65064 4 76.00 mm[Hg] - Sitting 139.00 mm[Hg] - Sitting 35344 219 76507 4 97.80 Forehead Scan 61417 220 72782 9 97.90 Tympanic 25177 220 00015 9 76.00 mm[Hg] - Sitting 138.00 mm[Hg] - Sitting 62648 220 60221 6 98.10 Tympanic 60790 221 31700 5 67.00 mm[Hg] - Sitting 142.00 mm[Hg] - Sitting 54909 221 45807 8 98.20 Tympanic 21332 221 17550 0 98.30 Tympanic 81575 222 50045 7 98.20 Tympanic 84944 222 75558 8 97.90 Tympanic 50179 223 29913 3 98.20 Tympanic 79959 223 82337 3 98.00 Tympanic 13140 224 06902 0 59.00 mm[Hg] - Sitting 111.00 mm[Hg] - Sitting 98.40 Forehead Scan 95.00 % 56.00/ min 18.00/min 50020 224 35085 9 98.20 Forehead Scan 72682 224 75265 3 97.90 Tympanic 33997 225 79456 4 98.20 Tympanic 70244 225 49452 8 97.50 Forehead Scan 04977 228 22782 0 55.00 mm[Hg] - Sitting 118.00 mm[Hg] - Sitting 98.40 Tympanic 69.00/ min 96975 229 48231 8 78.00 mm[Hg] - Sitting 152.00 mm[Hg] - Sitting 44692 230 32194 0 62.00 mm[Hg] - Sitting 122.00 mm[Hg] - Sitting 01179 231 23721 7 72.00 mm[Hg] - Lying Down 140.00 mm[Hg] - Lying Down 39681 101 39647 3 97.70 Forehead Scan 67387 101 23445 1 254.10 NI 69.00/ min 47557 101 75170 9 72.00 mm[Hg] - Sitting 142.00 mm[Hg] - Sitting 97.70 Tympanic 18.00/min 35595 101 49973 3 72.00 mm[Hg] - Lying Down 142.00 mm[Hg] - Lying Down 19342 102 30170 8 68.00 mm[Hg] - Lying Down 152.00 mm[Hg] - Lying Down 32882 103 68826 5 74.00 mm[Hg] - Sitting 158.00 mm[Hg] - Sitting 87109 104 64330 9 78.00 mm[Hg] - Sitting 144.00 mm[Hg] - Sitting 40327 105 17515 5 68.00 mm[Hg] - Sitting 138.00 mm[Hg] - Sitting 61719 106 61790 1 70.00 mm[Hg] - Sitting 138.00 mm[Hg] - Sitting 56357 107 19254 1 67.00 mm[Hg] - Sitting 142.00 mm[Hg] - Sitting 34042 108 22958 0 74.00 mm[Hg] - Sitting 143.00 mm[Hg] - Sitting 97463 110 61902 6 85.00 mm[Hg] - Sitting 160.00 mm[Hg] - Sitting 97.80 Tympanic 93.00 % 76.00/ min 18.00/min 43439 111 57805 1 83.00 mm[Hg] - Sitting 129.00 mm[Hg] - Sitting 98.60 Tympanic 92.00 % 71.00/ min 18.00/min 87465 111 65289 5 60.00 mm[Hg] - Sitting 114.00 mm[Hg] - Sitting 98.70 Tympanic 92.00 % 76.00/ min 18.00/min 13933 112 15543 4 55.00 mm[Hg] - Sitting 125.00 mm[Hg] - Sitting 98.60 Tympanic 91.00 % 68.00/ min 18.00/min 38805 112 81384 9 75.00 mm[Hg] - Sitting 174.00 mm[Hg] - Sitting 97.70 Tympanic 96.00 % 71.00/ min 18.00/min 92483 113 44811 2 77.00 mm[Hg] - Sitting 139.00 mm[Hg] [...]
--- OUTSIDE RECORDS SUMMARY | 2024-07-26 11:15 | External Medical Summary | Continuity Of Care Document ---
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 Role Phone DO Pritchett Amy Primary Care Provider [phone] Allergies Allergy Reaction Start Date End Date Status AMINOGLYCOSIDES Active CIPRO Active GENTAMICIN Active NSAIDS (NON-STEROIDAL ANTI-INFLAMMATORY DRUG) 0 Active IBUPROFEN Active QUINOLONES Active VALIUM Active Medications Medication Instructions Dosage Start Date End Date Status Order Date Drug Code Frequency Route of Admin Diagnosis Code Substitutions Allowed Spikevax [id number](1 2y up)(PF) 50 mcg/0.5 mL intramuscul ar suspension [COVID buy96-79(12 up)(andu)(P F)] 0.5mL Intramuscular 1 time Monitory 15 Minutes post injection for adverse effects; record site/temp For COVID 19 PREVENTION 0.5mL 01/02 Inactiv e 2023 21785 15160 4 1 time Intram uscula r False [facility] - Nurse initials indicate verificatio n that [id number] vaccine was administere d by [facility] jon 1 Intramuscular 1 time ( Indicate vaccine type) For vaccine 1 05/03 Inactiv e 2023 1 time Intram uscula r False Lisinopril 40 mg tablet [generic] TAKE ONE (1) TABLET BY MOUTH IN THE MORNING. For DX- HTN 1 2023 Active 2023 24017 42734 1 Once daily By Mouth False Tizanidine 2 mg tablet [generic] TAKE ONE (1) TABLET BY MOUTH ONCE DAILY For MUSCLE SPASM 1 2023 Active 2023 15029 49465 0 Once daily By Mouth M62.838 False Tamsulosin 0.4 mg capsule [generic] TAKE (1) CAPSULE BY MOUTH AT BEDTIME For SPASMS 1 2023 Active 2023 89438 49808 0 Once daily By Mouth False Aspirin 81 mg tablet Once daily 1 TABLET BY MOUTH IN THE MORNING For DX- CAD DO NOT CRUSH, CHEW OR BREAK 81 mg 06/12 Inactiv e 2023 Once daily By Mouth False Baclofen 20 mg tablet [generic] 20 mg By Mouth 4 times a day For DX- MUSCLE SPASMS 20 mg 12/12 Inactiv e 2023 71920 33573 1 4 times a day By Mouth False Calcium citrate 250 mg tablet Once daily 4 TABLET BY MOUTH For DX- SUPPLEMENT 250 mg calci 12/12 Inactiv e 2023 Once daily By Mouth False Co Q-10 100 mg capsule 100 mg By Mouth Once daily For DX- SUPPLEMENT 100 mg 06/20 Inactiv e 2023 88401 39274 5 Once daily By Mouth False Furosemide 20 mg tablet [generic] 20 mg By Mouth Once daily For DX-CHF 20 mg 12/12 Inactiv e 2023 13880 55345 0 Once daily By Mouth False Gabapentin 300 mg capsule [generic] 300 mg By Mouth 3 times a day For DX- NEUROPATHY 300 mg 12/12 Inactiv e 2023 01013 87872 4 3 times a day By Mouth False Loratadine 10 mg tablet [generic] 10 mg By Mouth Once daily For DX- ALLERGIES 10 mg 2023 Active 2023 33974 90113 1 Once daily By Mouth False Miralax 17 gram/dose oral powder 17 gram/dose By Mouth IN THE MORNING Mix 1 TABLESPOON IN 8 OZ OF FLUID HOLD FOR LOOSE STOOLS For DX- CONSTIPATION 17 gram/do se 12/12 Inactiv e 2023 49959 62039 0 Once daily By Mouth False Paroxetine 30 mg tablet [generic] 30 mg By Mouth Once daily For DX- DEPRESSION 30 mg 2023 00/00 /0000 Active 2023 13778 09756 3 Once daily By Mouth False Potassium citrate ER 15 mEq (1,620 mg) tablet,exte nded release [generic] 15 mEq By Mouth 3 times a day For DX- SUPPLEMENT/DI URETIC USE/ HYPOCITRAUIRA DO NOT CRUSH 15 mEq 12/12 Inactiv e 2023 20158 84527 1 3 times a day By Mouth [...] For DX- DANDRUFF 12/12 Inactiv e 2023 10832 63160 4 3 times a week Topica l False Acetaminoph en 325 mg tablet [generic] TAKE 2 TABS (650MG) BY MOUTH EVERY 4 HOURS NEEDED FOR TEMP >100 NOT TO EXCEED 3GM/24HRS TAKE 2 TABS (650MG) BY MOUTH EVERY 4 HOURS NEEDED FOR TEMP >100 NOT TO EXCEED 3GM/24HRS For DX-FEVER 2 12/12 Inactiv e 2023 84326 92360 0 By Mouth False MILK OF MAGNESIA ADMINISTER 30 ML BY MOUTH ONCE DAILY NEEDED FOR CONSTIPATION X3 DAYS WITH NO BM. For DX- CONSTIPATION 30ML 12/12 Inactiv e 2023 45789 32814 9 By Mouth False Enema Disposable 19 gram-7 gram/118 mL ADMINISTER ONE ENEMA RECTALLY ONCE DAILY NEEDED FOR CONSTIPATION ON DAY 6 OF NO BM For DX- CONSTIPATION 12/12 Inactiv e 2023 76457 22922 1 Rectal False TUMS EXTRA STR 750MG TAKE (1) TABLET BY MOUTH THREE TIMES DAILY NEEDED FOR INDIGESTION For DX- INDIGESTION 1 12/12 Inactiv e 2023 50145 69338 8 By Mouth False Vitamin D3 25 [...] CONSTIPATION 10 mg 12/12 Inactiv e 2023 54473 48229 1 Rectal False Melatonin 3 mg tablet [generic] 3 mg By Mouth As Needed For DX-INSOMMIA 3 mg 12/12 Inactiv e 2023 32549 15674 8 By Mouth False Hydrocortis one 1 % topical cream [generic] 1 % Topical As Needed For DX- PAIN 1 % 12/12 Inactiv e 2023 74261 30978 1 Topica l False HYDROCORTIS ONE/PARMOXI NE [...] 5-10 50 mg 12/20 Inactiv e 2023 61689 99281 0 Every 4 hours as needed By Mouth False Tylenol 325 mg tablet 325 mg By Mouth Every 4 hours as needed For DX- PAIN PRN FOR MILD PAIN, DO NOT EXCEED 3000MG APAP/24 HOURS 325 mg 12/20 Inactiv e 2023 26006 54513 0 Every 4 hours as needed By Mouth False Baclofen 20 mg tablet [generic] 20 mg By Mouth 4 times a day For MUSCLE SPASMS 20 mg 12/20 Inactiv e 2023 88921 28325 1 4 times a day By Mouth False Calcium citrate 250 mg tablet [generic] Once daily TAKE 4 TABLETS (1000MG) BY MOUTH For SUPPLEMENT 1000 MG 06/26 Inactiv e 2023 54916 32853 6 Once daily By Mouth False Dulcolax (bisacodyl) 10 mg rectal suppository 10 mg Rectal Once daily For CONSTIPATION *MAY HOLD FOR LOOSE STOOLS* 10 mg 2023 Active 2023 79990 75479 1 Once daily Rectal False Gabapentin 300 mg capsule [generic] 300 mg By Mouth 3 times a day For NEUROPATHY 300 mg 2023 Active 2023 57562 26360 4 3 times a day By Mouth False Potassium citrate ER 15 mEq (1,620 mg) tablet,exte nded release [generic] 15 mEq By Mouth 3 times a day For SUPPLEMENT/DI URETIC USE/HYPOCITRA URIA 15 mEq 06/11 Inactiv e 2023 85306 98335 1 3 times a day By Mouth False Potassium chloride ER 20 mEq tablet,exte nded release [generic] 20 mEq By Mouth 3 times a day *DO NOT CRUSH, CHEW OR BREAK* For SUPPLEMENT 20 mEq 12/18 Inactiv e 2023 72659 43045 1 3 times a day By Mouth False Tizanidine 4 mg tablet [generic] 4 mg By Mouth Once daily For MUSCLE SPASMS 4 mg 2023 Active 2023 32414 48120 0 Once daily By Mouth False Tylenol 325 mg tablet 2 tabs By Mouth Every 4 hours as needed For Fever >100 DO NOT EXCEED 3000 MG APAP/24 Hours 2 tabs 12/20 Inactiv e 2023 84889 54213 0 Every 4 hours as needed By Mouth False Dulcolax (bisacodyl) 10 mg rectal suppository Daily as needed For Constipation 1 sup 12/20 Inactiv e 2023 10796 24300 1 Daily as needed Rectal False Fleet Enema 19 gram-7 gram/118 mL 1 Rectal Daily as neededFor Constipation 1 12/20 Inactiv e 2023 89397 81412 6 Daily as needed Rectal False Milk of Magnesia 400 mg/5 mL oral suspension [Magnesium hydroxide] PRN 30ml By Mouth Daily as needed for constipation one time daily if no BM, on day 4 of no BM (PRN refer to instructions) For Constipation For Constipatioin 30ml 12/20 Inactiv e 2023 46508 66586 6 1 time By Mouth False Melatonin 3 mg tablet [generic] 3 mg By Mouth Once daily As Needed For INSOMNIA 3 mg 12/20 Inactiv e 2023 86469 33043 8 Once daily By Mouth False Hydrocortis one 1 % topical cream [generic] 1 % Rectal Four times daily as needed For hemorroid pain 1 % 12/20 Inactiv e 2023 74255 35086 1 Four times daily as needed Rectal False X-STGH ANTACID 750MG CHEW TAKE (1) TABLET BY MOUTH THREE TIMES DAILY NEEDED FOR INDIGESTION 12/20 Inactiv e 2023 24017 46138 4 Three times daily as needed Saline Mist 0.65 % nasal spray aerosol 0.65 % Nares Four times daily as needed For DRYNESS 0.65 % 12/20 Inactiv e 2023 42134 00074 8 Four times daily as needed Nares False Vicks Vaporub 4.7 %-1.2 %-2.6 % topical ointment Apply topically to chest Three times daily as needed For CONGESTION 4.7-1.2 -2.6 12/20 Inactiv e 2023 52376 42095 1 Three times daily as needed Topica l False VITAMIN D3 2000U CAP TAKE ONE (1) CAPSULE BY MOUTH DAILY* DO NOT CRUSH, CHEW OR BREAK* For Supplement 1 capsule 12/19 Inactiv e 2023 35972 47648 0 Once daily By Mouth False Potassium chloride ER 20 mEq tablet,exte nded release(par t/cryst) [generic] TAKE (1) TABLET BY MOUTH THREE TIMES DAILY (MORNING, AFTERNOON, EVENING)*DO NOT CRUSH, CHEW, OR BREAK* For SUPPLEMENT 20 MEQ 06/11 Inactiv e 2023 63696 00076 5 3 times a day By Mouth False Aspirin 81 mg tablet,camron yed release [generic] TAKE ONE (1) TABLET BY MOUTH ONCE DAILY*DO NOT CRUSH, CHEW OR BREAK* For CAD 81 MG 12/22 Inactiv e 2023 43894 72222 0 Once daily By Mouth False Furosemide 20 mg tablet [generic] TAKE 1 AND 1/2 TABLETS (30MG) BY MOUTH ONCE DAILY For CHF 30mg 2023 Active 2023 67465 50808 1 Once daily By Mouth False Polyethylen e glycol 3350 17 gram/dose oral powder [generic] MIX 17 GRAMS (1 CAPFUL) IN 60Z OF LIQUID AND DRINK BY MOUTH ONCE DAILY *HOLD FOR LOOSE STOOLS* For constipation 17 g 2023 Active 2023 41158 90625 3 Once daily By Mouth False Vitamin D3 50 mcg (2,000 unit) capsule Once daily TAKE ONE (1) CAPSULE BY MOUTH DAILY* DO NOT CRUSH, CHEW OR BREAK* For Supplement 1 capsule 02/07 Inactiv e 2023 09626 61784 2 Once daily By Mouth False Fleet Enema 19 gram-7 gram/118 mL 1 Rectal Daily as neededFor Constipation 1 2023 0000 Active 2023 95442 47647 6 Daily as needed Rectal False Tums E-X 300 mg (as calcium carbonate 750 mg) chewable tablet 1 tab By Mouth TAKE (1) TABLET BY MOUTH THREE TIMES DAILY NEEDED FOR INDIGESTION 1 tab 202300 /0000 Active 2023 02551 37959 1 Three times daily as needed By Mouth False Tylenol 325 mg tablet 2 tabs By Mouth Every 4 hours as needed For Fever >100 DO NOT EXCEED 3000 MG APAP/24 Hours 2 tabs 202300 /0000 Active 2023 41127 24838 0 Every 4 hours as needed By Mouth False Vicks Vaporub 4.7 %-1.2 %-2.6 % topical ointment Apply topically to chest Three times daily as needed For CONGESTION topical 202300 Active 2023 27981 08021 1 Three times daily as needed Topica l False Tylenol 325 mg tablet 2 tabs By Mouth Every 4 hours as needed For DX- PAIN PRN FOR MILD PAIN, DO NOT EXCEED 3000MG APAP/24 HOURS 2 tabs 202300 Active 2023 84881 94703 0 Every 4 hours as needed By Mouth False Tramadol 50 mg tablet [generic] 1 tab By Mouth Every 4 hours as needed For DX- PAIN 5-10 1 tab 03/10 Inactiv e 2023 04280 44958 0 Every 4 hours as needed By Mouth False Saline Mist 0.65 % nasal spray aerosol 2 sprays Nares Four times daily as needed For DRYNESS 2 sprays 202300 / Active 2023 14710 36369 8 Four times daily as needed Nares False Dulcolax (bisacodyl) 10 mg rectal suppository Daily as needed For Constipation 1 sup 202300 / Active 2023 95046 41922 1 Daily as needed Rectal False Hydrocortis one-pramoxi ne 1 %-1 % rectal cream [generic] 1 mague Rectal Four times daily as needed For hemorroid pain 1 mague 202300 /0000 Active 2023 26995 80183 4 Four times daily as needed Rectal False Melatonin 3 mg tablet [generic] 1 tab By Mouth At bedtime as needed For INSOMNIA 1 tab 12/24 Inactiv e 2023 67270 51469 8 At bedtime as needed By Mouth False Milk of Magnesia 400 mg/5 mL oral suspension 30ml By Mouth Daily as needed Daily as needed for constipation one time daily if no BM, on day 4 of no BM (PRN refer to instructions) For Constipation For Constipatioin 30ml 2023 Active 2023 41143 97623 2 Daily as needed By Mouth False Baclofen 20 mg tablet [generic] 20 mg By Mouth 4 times a day For MUSCLE SPASMS 20 mg 2023 Active 2023 72088 46003 1 4 times a day By Mouth False Melatonin 3 mg tablet [generic] 1 tab By Mouth At bedtime as needed For INSOMNIA 1 tab 2023 Active 2023 71744 57091 8 At bedtime as needed By Mouth False Bactrim DS 800 mg-160 mg tablet 1 tab By Mouth Twice daily For URINARY TRACT INFECTION, SITE NOT SPECIFIED 1 tab 01/06 Inactiv e 2023 65682 83517 1 Twice daily By Mouth N39.0 False Cefdinir 300 mg capsule [generic] 300 mg By Mouth Twice daily For UTI 300 mg 01/07 Inactiv e 2023 56765 68767 0 Twice daily By Mouth False Cefdinir 300 mg capsule [generic] 300 mg By Mouth Twice daily For UTI 300 mg 01/17 Inactiv e 2023 27340 56831 0 Twice daily By Mouth False Zyrtec 10 mg tablet 10 mg By Mouth Once daily For sinus congestion 10 mg 01/22 Inactiv e 2023 03183 69284 0 Once daily By Mouth False Tobramycin 0.3 %-dexametha sone 0.1 % eye drops,suspe nsion [generic] 0.3-0.1 % Left Eye 4 times a day For eye infection 0.3-0.1 % 02/05 Inactiv e 2023 85493 11556 5 4 times a day Left Eye False Fluconazole 150 mg tablet [generic] 150 mg By Mouth 1 time For yeast infection 150 mg 02/15 Inactiv e 2023 07348 27824 2 1 time By Mouth False Tramadol 50 mg tablet [generic] 1 tab By Mouth Every 4 hours as needed For DX- PAIN 5-10 1 tab 2023 00/00 /0000 Active 2023 16243 55742 0 Every 4 hours as needed By Mouth False Tobramycin 0.3 %-dexametha sone 0.1 % eye drops,suspe nsion [generic] 1 drop Left Eye 4 times a day For Inflammation of left eye 1 drop 05/08 Inactiv e 2023 46835 42688 5 4 times a day Left Eye False Voltaren Arthritis Pain 1 % topical gel 2 gm Topical Twice daily to rigth shoulder for 2 weeks For pain 2 gm 05/08 Inactiv e 2023 58414 88365 1 Twice daily Topica l False Chlorthalid one 25 mg tablet [generic] 12.5mg By Mouth Once daily For HTN 12.5mg 05/06 Inactiv e 2023 92539 14692 0 Once daily By Mouth False Chlorthalid one 25 mg tablet [generic] 12.5mg By Mouth Once daily For HTN 12.5mg 05/07 Inactiv e 2023 32175 14138 0 Once daily By Mouth False Chlorthalid one 25 mg tablet [generic] 05/07 Inactiv e 2023 73795 42435 0 Chlorthalid one 25 mg tablet [generic] 12.5mg By Mouth Once daily For HTN 12.5mg 06/26 Inactiv e 2023 32606 47035 0 Once daily By Mouth False Norvasc 5 mg tablet 5mg By Mouth Once daily, hold medication if systolic is less than 90 For HYPERTENSIVE HEART DISEASE WITHOUT HEART FAILURE 5mg 06/03 Inactiv e 2023 39932 52771 1 Once daily By Mouth I11.9 False Norvasc 5 mg tablet 5mg By Mouth Once daily, hold medication if systolic is less than 90 For HYPERTENSIVE HEART DISEASE WITHOUT HEART FAILURE 5mg 06/03 Inactiv e 2023 65627 99550 1 Once daily By Mouth I11.9 False Norvasc 5 mg tablet 5mg By Mouth Once daily, hold medication if systolic is less than 90 For HYPERTENSIVE HEART DISEASE WITHOUT HEART FAILURE 5mg 06/26 Inactiv e 2023 18842 93411 1 Once daily By Mouth I11.9 False [...] 10 mg 2023 00/00 /0000 Active 2023 58078 34101 1 Once daily By Mouth False DISCONTINUE [...] CAD 81 mg 06/14 Inactiv e 2023 44265 82636 9 Once daily By Mouth False Aspirin 81 mg tablet,camron yed release [generic] 06/14 Inactiv e 2023 50142 19233 9 Aspirin 81 mg tablet,camron yed release [generic] 81 mg By Mouth Once daily Do not crush, chew, or break For CAD 81 mg 06/154 Inactiv e 2023 05264 49905 9 Once daily By Mouth False Cefpodoxime 200 mg tablet [generic] 200mg By Mouth Twice daily For UTI 200mg 07/04 Inactiv e 2023 15849 52314 0 Twice daily By Mouth False Calcium citrate 250 mg tablet [generic] 06/26 Inactiv e 2023 16876 80462 6 Calcium citrate 250 mg tablet [generic] Once daily TAKE 4 TABLETS (1000MG) BY MOUTH For SUPPLEMENT 500 MG 2023 Active 2023 71867 74685 6 Once daily By Mouth False Norvasc 5 mg tablet 7.5 mg By Mouth Once daily Hold medication if SBP <90 For HYPERTENSIVE HEART DISEASE WITHOUT HEART FAILURE 7.5 mg 06/30 Inactiv e 2023 35905 50648 1 Once daily By Mouth I11.9 False Norvasc 5 mg tablet 7.5 mg By Mouth Once daily Hold medication if SBP <90 For HYPERTENSIVE HEART DISEASE WITHOUT HEART FAILURE 7.5 mg 07/06 Inactiv e 2023 42044 23749 1 Once daily By Mouth I11.9 False Simethicone 125 mg capsule [generic] 2 capule By Mouth Twice daily as needed For bloating/gas pain 2 capule 2023 Active 2023 93805 99184 0 Twice daily as needed By Mouth False Cepacol Sore Throat (benzocaine -menthol) 15 mg-2.6 mg lozenges 2 lozenges By Mouth Every 6 hours as needed For sore throat 2 lozenge s 2023 Active 2023 98881 88947 6 Every 6 hours as needed By Mouth False Cefepime 1 gram solution for injection [generic] 1g Intramuscular Every 12 hours 1g intramuscular ly ever 12 hours For UTI 1g 07/06 Inactiv e 2023 28089 28088 4 Every 12 hours Intram uscula r False Cefepime 1 gram solution for injection [generic] 07/06 Inactiv e 2023 41870 03655 4 Cefepime 1 gram solution for injection [generic] 1g Intramuscular Every 12 hours 1g intramuscular ly ever 12 hours For UTI Reconstitute with 2.4 ML of NSS. 1g 07/08 Inactiv e 2023 11572 73062 4 Every 12 hours Intram uscula r False Norvasc 5 mg tablet 07/06 Inactiv e 2023 04392 46188 1 I11.9 Norvasc 5 mg tablet 7.5 mg By Mouth Once daily Hold medication if SBP <90 For HYPERTENSIVE HEART DISEASE WITHOUT HEART FAILURE 7.5 mg 07/18 Inactiv e 2023 46783 74478 1 Once daily By Mouth I11.9 False Cefepime 1 gram solution for injection [generic] 07/08 Inactiv e 2023 97126 91819 4 Cefepime 1 gram solution for injection [generic] 1g Intramuscular Every 12 hours 1g intramuscular ly ever 12 hours For UTI Reconstitute with 2.4 ML of NSS. 1g 07/08 Inactiv e 2023 38089 51590 4 Every 12 hours Intram uscula r False Cefepime 1 gram solution for injection [generic] 07/08 Inactiv e 2023 08844 90531 4 Cefepime 1 gram solution for injection [generic] 1g Intramuscular Every 12 hours 1g intramuscular ly ever 12 hours For UTI Reconstitute with 2.4 ML of NSS. 1g 07/11 Inactiv e 2023 49275 95739 4 Every 12 hours Intram uscula r False Fleet Enema 19 gram-7 gram/118 mL 1 Rectal 1 time For constipation 1 07/16 Inactiv e 2024 83301 32926 6 1 time Rectal False Fleet Enema 19 gram-7 gram/118 mL 1 Rectal 1 time For constipation 1 07/17 Inactiv e 2024 28763 66072 6 1 time Rectal False Norvasc 5 mg tablet 7.5 mg By Mouth Once daily For HYPERTENSIVE HEART DISEASE WITHOUT HEART FAILURE 7.5 mg 2024 00/00 /0000 Active 2024 32707 33180 1 Once daily By Mouth I11.9 False Potassium chloride ER 20 mEq tablet,exte nded release(par t/cryst) [generic] 40 mEq By Mouth 1 time For low potassium prior to surgery 40 mEq 07/18 Inactiv e 2024 63287 60432 1 1 time By Mouth False Potassium chloride ER 20 mEq tablet,exte nded release(par t/cryst) [generic] 40 mEq By Mouth 1 time For low potassium prior to surgery 40 mEq 07/18 Inactiv e 2024 93389 77923 1 1 time By Mouth False Potassium chloride ER 20 mEq tablet,exte nded release(par t/cryst) [generic] 40 mEq By Mouth 1 time For low potassium 40 mEq 07/18 Inactiv e 2024 73661 26730 1 1 time By Mouth False Potassium chloride ER 20 mEq tablet,exte nded release(par t/cryst) [generic] 40 mEq By Mouth 1 time For low potassium 40 mEq 07/18 Inactiv e 2024 37759 19938 1 1 time By Mouth False Potassium chloride ER 20 mEq tablet,exte nded release [generic] 2 By Mouth 1 time For low potassium 2 07/19 Inactiv e 2024 32848 67820 1 1 time By Mouth False Potassium chloride ER 20 mEq tablet,exte nded release [generic] 2 capsules capsules By Mouth 1 time Please send capsule (2 capsules) For low potassium 2 capsule s 07/20 Inactiv e 2024 56380 31377 1 1 time By Mouth False Potassium chloride ER 20 mEq tablet,exte nded release(par t/cryst) [generic] TAKE (2) TABLETS (40MEQ) BY MOUTH X1 DOSE 07/20 Inactiv e 2024 43221 11479 5 Cefepime 1 gram solution for injection [generic] 1 gram Intramuscular Every 12 hours For Urinary Tract Infection 1 gram 07/21 Inactiv e 2024 84493 43923 4 Every 12 hours Intram uscula r False Cefepime 1 gram solution for injection [generic] 07/21 Inactiv e 2024 49779 81763 4 Cefepime 1 gram solution for injection [generic] 1 gram Intramuscular Every 12 hours For Urinary Tract Infection 1 gram 08/04 Active 2024 78700 14177 4 Every 12 hours Intram uscula r False Nystatin 100,000 unit/gram topical cream [generic] 100,000 unit Topical As Needed For DX- EXCORIATION 100,000 unit 12/12 Inactiv e 2023 07779 64219 5 Topica l False Vicks Vaporub 4.7 %-1.2 %-2.6 % topical ointment 4.7-1.2-2.6 Topical 3 times a day As Needed For DX- CONGESTION 4.7-1.2 -2.6 12/12 Inactiv e 2023 32619 14659 1 3 times a day Topica l False Ketoconazol e 2 % shampoo [generic] APPLY SHAMPOO TOPICALLY TO SCALP DURING HAIR WASHINGDX: ELVIA DERM OF SCALP For DX- ELVIA DERM OF SCALP 12/12 Inactiv e 2023 21455 62705 4 Topica l False THERA SILICONE SKIN GUARD Topical Twice daily 1 APPLICATION TOPICALLY IN THE MORNING AND AT BEDTIME TO SCROTUM For DX- PREVENTION 2023 00/00 / Active 2023 Twice daily Topica l False Selenium sulfide 2.5 % lotion [generic] 2.5 % Topical EVERY MONDAY, MONDAY AND MONDAY AFTER SHOWER For DANDRUFF 2.5 % 2023 00/00 / Active 2023 02272 40751 4 3 times a week Topica l False Nystatin (bulk) 100 million unit powder [generic] 100 million Topical Twice daily as needed For EXOCORATION 100 million 12/20 Inactiv e 2023 31643 63801 1 Twice daily as needed Topica l False Ketoconazol e 2 % shampoo [generic] Once daily APPLY SHAMPOO TOPICALLY TO SCALP DURING HAIR WASHING ON SHOWER DAYS- JOSHMICHELLELITTLE, SAT For ELVIA DERM OF SCAP 2 % 2023 Active 2023 25469 75535 4 Once daily Topica l False Nystatin 100,000 unit/gram topical cream [generic] 1 mague Topical Twice daily as needed For EXOCORATION 1 mague 06/05 Inactiv e 2023 08912 92741 5 Twice daily as needed Topica l False Nystatin 100,000 unit/gram topical powder [generic] 100,000 unit Topical Twice daily to scrotum with AM and PM care For Scrotal excoriation 100,000 unit 06/05 Inactiv e 2023 72432 65053 5 Twice daily Topica l False Problems [...] adjustment of urinary device 07/21/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 07/21 Active [...] weight Temperature SpO2 Blood Sugar Pulse Respirations 16782 216 91695 1 254.10 NI 72785 216 91306 2 79.00 mm[Hg] - Sitting 157.00 mm[Hg] - Sitting 73 NI 254.10 NI 36.30 Tympanic 95.00 % 72.00/ min 16.00/min 14493 216 07200 4 98.80 Tympanic 19298 216 91016 2 78.00 mm[Hg] - Sitting 164.00 mm[Hg] - Sitting 00638 217 81062 3 98.20 Tympanic 24156 217 42146 5 73.00 mm[Hg] - Sitting 159.00 mm[Hg] - Sitting 41509 217 94241 9 98.40 Forehead Scan 70565 218 08269 3 97.90 Tympanic 75731 218 70325 5 77.00 mm[Hg] - Sitting 137.00 mm[Hg] - Sitting 62486 219 93895 0 97.70 Tympanic 28245 219 60261 6 97.60 Tympanic 57336 219 68351 4 76.00 mm[Hg] - Sitting 139.00 mm[Hg] - Sitting 53517 219 78415 4 97.80 Forehead Scan 40078 220 75366 9 97.90 Tympanic 24969 220 91518 9 76.00 mm[Hg] - Sitting 138.00 mm[Hg] - Sitting 64593 220 65237 6 98.10 Tympanic 20540 221 09846 5 67.00 mm[Hg] - Sitting 142.00 mm[Hg] - Sitting 77946 221 53608 8 98.20 Tympanic 88403 221 73950 0 98.30 Tympanic 75137 222 81532 7 98.20 Tympanic 63389 222 47045 8 97.90 Tympanic 40790 223 09769 3 98.20 Tympanic 17805 223 71589 3 98.00 Tympanic 22060 224 05234 0 59.00 mm[Hg] - Sitting 111.00 mm[Hg] - Sitting 98.40 Forehead Scan 95.00 % 56.00/ min 18.00/min 58874 224 70530 9 98.20 Forehead Scan 49026 224 82485 3 97.90 Tympanic 27443 225 31550 4 98.20 Tympanic 84610 225 99096 8 97.50 Forehead Scan 16229 228 47654 0 55.00 mm[Hg] - Sitting 118.00 mm[Hg] - Sitting 98.40 Tympanic 69.00/ min 69239 229 12300 8 78.00 mm[Hg] - Sitting 152.00 mm[Hg] - Sitting 42028 230 20563 0 62.00 mm[Hg] - Sitting 122.00 mm[Hg] - Sitting 25874 231 15867 7 72.00 mm[Hg] - Lying Down 140.00 mm[Hg] - Lying Down 01184 101 71881 3 97.70 Forehead Scan 44037 101 27011 1 254.10 NI 69.00/ min 40508 101 30522 9 72.00 mm[Hg] - Sitting 142.00 mm[Hg] - Sitting 97.70 Tympanic 18.00/min 61882 101 48630 3 72.00 mm[Hg] - Lying Down 142.00 mm[Hg] - Lying Down 60371 102 57533 8 68.00 mm[Hg] - Lying Down 152.00 mm[Hg] - Lying Down 68798 103 05511 5 74.00 mm[Hg] - Sitting 158.00 mm[Hg] - Sitting 89916 104 84739 9 78.00 mm[Hg] - Sitting 144.00 mm[Hg] - Sitting 89660 105 52462 5 68.00 mm[Hg] - Sitting 138.00 mm[Hg] - Sitting 75398 106 06170 1 70.00 mm[Hg] - Sitting 138.00 mm[Hg] - Sitting 85332 107 96434 1 67.00 mm[Hg] - Sitting 142.00 mm[Hg] - Sitting 39411 108 69088 0 74.00 mm[Hg] - Sitting 143.00 mm[Hg] - Sitting 26935 110 55246 6 85.00 mm[Hg] - Sitting 160.00 mm[Hg] - Sitting 97.80 Tympanic 93.00 % 76.00/ min 18.00/min 95013 111 25176 1 83.00 mm[Hg] - Sitting 129.00 mm[Hg] - Sitting 98.60 Tympanic 92.00 % 71.00/ min 18.00/min 63785 111 96737 5 60.00 mm[Hg] - Sitting 114.00 mm[Hg] [...]
--- OUTSIDE RECORDS SUMMARY | 2024-07-26 11:15 | External Medical Summary | Continuity Of Care Document ---
Author Name Unknown Address [address] [place] [address] Organization [facility] () Care Team Providers Care Garbage Person Name Role Phone DO Pritchett Amy Primary Care Provider [phone] Allergies Allergy Reaction Start Date End Date Status AMINOGLYCOSIDES Active CIPRO Active GENTAMICIN Active NSAIDS (NON-STEROIDAL ANTI-INFLAMMATORY DRUG) 0 Active IBUPROFEN Active QUINOLONES Active VALIUM Active Medications Medication Instructions Dosage Start Date End Date Status Order Date Drug Code Frequency Route of Admin Diagnosis Code Substitutions Allowed Spikevax [id number](1 2y up)(PF) 50 mcg/0.5 mL intramuscul ar suspension [COVID [id number](12 up)(andu)(P F)] 0.5mL Intramuscular 1 time Monitory 15 Minutes post injection for adverse effects; record site/temp For COVID 19 PREVENTION 0.5mL 01/02 Inactiv e 2023 79017 40870 4 1 time Intram uscula r False [facility] - Nurse initials indicate verificatio n that [id number] vaccine was administere d by [facility] Representat jon 1 Intramuscular 1 time ( Indicate vaccine type) For vaccine 1 05/03 Inactiv e 2023 1 time Intram uscula r False Lisinopril 40 mg tablet [generic] TAKE ONE (1) TABLET BY MOUTH IN THE MORNING. For DX- HTN 1 2023 Active 2023 80180 81232 1 Once daily By Mouth False Tizanidine 2 mg tablet [generic] TAKE ONE (1) TABLET BY MOUTH ONCE DAILY For MUSCLE SPASM 1 2023 Active 2023 63108 35740 0 Once daily By Mouth M62.838 False Tamsulosin 0.4 mg capsule [generic] TAKE (1) CAPSULE BY MOUTH AT BEDTIME For SPASMS 1 2023 Active 2023 24886 35393 0 Once daily By Mouth False Aspirin 81 mg tablet Once daily 1 TABLET BY MOUTH IN THE MORNING For DX- CAD DO NOT CRUSH, CHEW OR BREAK 81 mg 06/12 Inactiv e 2023 Once daily By Mouth False Baclofen 20 mg tablet [generic] 20 mg By Mouth 4 times a day For DX- MUSCLE SPASMS 20 mg 12/12 Inactiv e 2023 13736 36646 1 4 times a day By Mouth False Calcium citrate 250 mg tablet Once daily 4 TABLET BY MOUTH For DX- SUPPLEMENT 250 mg calci 12/12 Inactiv e 2023 Once daily By Mouth False Co Q-10 100 mg capsule 100 mg By Mouth Once daily For DX- SUPPLEMENT 100 mg 06/20 Inactiv e 2023 57056 38288 5 Once daily By Mouth False Furosemide 20 mg tablet [generic] 20 mg By Mouth Once daily For DX-CHF 20 mg 12/12 Inactiv e 2023 11647 20964 0 Once daily By Mouth False Gabapentin 300 mg capsule [generic] 300 mg By Mouth 3 times a day For DX- NEUROPATHY 300 mg 12/12 Inactiv e 2023 42657 90120 4 3 times a day By Mouth False Loratadine 10 mg tablet [generic] 10 mg By Mouth Once daily For DX- ALLERGIES 10 mg 2023 Active 2023 45942 43824 1 Once daily By Mouth False Miralax 17 gram/dose oral powder 17 gram/dose By Mouth IN THE MORNING Mix 1 TABLESPOON IN 8 OZ OF FLUID HOLD FOR LOOSE STOOLS For DX- CONSTIPATION 17 gram/do se 12/12 Inactiv e 2023 46009 39578 0 Once daily By Mouth False Paroxetine 30 mg tablet [generic] 30 mg By Mouth Once daily For DX- DEPRESSION 30 mg 2023 00/00 /0000 Active 2023 69457 39617 3 Once daily By Mouth False Potassium citrate ER 15 mEq (1,620 mg) tablet,exte nded release [generic] 15 mEq By Mouth 3 times a day For DX- SUPPLEMENT/DI URETIC USE/ HYPOCITRAUIRA DO NOT CRUSH 15 mEq 12/12 Inactiv e 2023 33651 79740 1 3 times a day By Mouth [...] For DX- DANDRUFF 12/12 Inactiv e 2023 95352 82839 4 3 times a week Topica l False Acetaminoph en 325 mg tablet [generic] TAKE 2 TABS (650MG) BY MOUTH EVERY 4 HOURS NEEDED FOR TEMP >100 NOT TO EXCEED 3GM/24HRS TAKE 2 TABS (650MG) BY MOUTH EVERY 4 HOURS NEEDED FOR TEMP >100 NOT TO EXCEED 3GM/24HRS For DX-FEVER 2 12/12 Inactiv e 2023 17887 72530 0 By Mouth False MILK OF MAGNESIA ADMINISTER 30 ML BY MOUTH ONCE DAILY NEEDED FOR CONSTIPATION X3 DAYS WITH NO BM. For DX- CONSTIPATION 30ML 12/12 Inactiv e 2023 27877 73092 9 By Mouth False Enema Disposable 19 gram-7 gram/118 mL ADMINISTER ONE ENEMA RECTALLY ONCE DAILY NEEDED FOR CONSTIPATION ON DAY 6 OF NO BM For DX- CONSTIPATION 12/12 Inactiv e 2023 11461 15900 1 Rectal False TUMS EXTRA STR 750MG TAKE (1) TABLET BY MOUTH THREE TIMES DAILY NEEDED FOR INDIGESTION For DX- INDIGESTION 1 12/12 Inactiv e 2023 16268 74995 8 By Mouth False Vitamin D3 25 [...] CONSTIPATION 10 mg 12/12 Inactiv e 2023 21426 50564 1 Rectal False Melatonin 3 mg tablet [generic] 3 mg By Mouth As Needed For DX-INSOMMIA 3 mg 12/12 Inactiv e 2023 73183 66424 8 By Mouth False Hydrocortis one 1 % topical cream [generic] 1 % Topical As Needed For DX- PAIN 1 % 12/12 Inactiv e 2023 39204 51414 1 Topica l False HYDROCORTIS ONE/PARMOXI NE [...] 5-10 50 mg 12/20 Inactiv e 2023 89194 75582 0 Every 4 hours as needed By Mouth False Tylenol 325 mg tablet 325 mg By Mouth Every 4 hours as needed For DX- PAIN PRN FOR MILD PAIN, DO NOT EXCEED 3000MG APAP/24 HOURS 325 mg 12/20 Inactiv e 2023 98837 10966 0 Every 4 hours as needed By Mouth False Baclofen 20 mg tablet [generic] 20 mg By Mouth 4 times a day For MUSCLE SPASMS 20 mg 12/20 Inactiv e 2023 43622 27047 1 4 times a day By Mouth False Calcium citrate 250 mg tablet [generic] Once daily TAKE 4 TABLETS (1000MG) BY MOUTH For SUPPLEMENT 1000 MG 06/26 Inactiv e 2023 12371 80415 6 Once daily By Mouth False Dulcolax (bisacodyl) 10 mg rectal suppository 10 mg Rectal Once daily For CONSTIPATION *MAY HOLD FOR LOOSE STOOLS* 10 mg 2023 Active 2023 16912 31136 1 Once daily Rectal False Gabapentin 300 mg capsule [generic] 300 mg By Mouth 3 times a day For NEUROPATHY 300 mg 2023 Active 2023 89675 55970 4 3 times a day By Mouth False Potassium citrate ER 15 mEq (1,620 mg) tablet,exte nded release [generic] 15 mEq By Mouth 3 times a day For SUPPLEMENT/DI URETIC USE/HYPOCITRA URIA 15 mEq 06/11 Inactiv e 2023 97490 04964 1 3 times a day By Mouth False Potassium chloride ER 20 mEq tablet,exte nded release [generic] 20 mEq By Mouth 3 times a day *DO NOT CRUSH, CHEW OR BREAK* For SUPPLEMENT 20 mEq 12/18 Inactiv e 2023 85111 67822 1 3 times a day By Mouth False Tizanidine 4 mg tablet [generic] 4 mg By Mouth Once daily For MUSCLE SPASMS 4 mg 2023 Active 2023 82186 62686 0 Once daily By Mouth False Tylenol 325 mg tablet 2 tabs By Mouth Every 4 hours as needed For Fever >100 DO NOT EXCEED 3000 MG APAP/24 Hours 2 tabs 12/20 Inactiv e 2023 71026 12071 0 Every 4 hours as needed By Mouth False Dulcolax (bisacodyl) 10 mg rectal suppository Daily as needed For Constipation 1 sup 12/20 Inactiv e 2023 17038 33916 1 Daily as needed Rectal False Fleet Enema 19 gram-7 gram/118 mL 1 Rectal Daily as neededFor Constipation 1 12/20 Inactiv e 2023 44647 97666 6 Daily as needed Rectal False Problems [...] weight Temperature SpO2 Blood Sugar Pulse Respirations 26061 211 43609 5 78.00 mm[Hg] - Sitting 125.00 mm[Hg] - Sitting 34885 216 23181 1 254.10 [place] [address]60 216 85990 2 79.00 mm[Hg] - Sitting 157.00 mm[Hg] - Sitting 73 NI 254.10 NI 36.30 Tympanic 95.00 % 72.00/ min 16.00/min 43966 216 94253 4 98.80 Tympanic 29979 216 08372 2 78.00 mm[Hg] - Sitting 164.00 mm[Hg] - Sitting 89187 217 59988 3 98.20 Tympanic 03800 217 43585 5 73.00 mm[Hg] - Sitting 159.00 mm[Hg] - Sitting 17512 217 17346 9 98.40 Forehead Scan 61968 218 38913 3 97.90 Tympanic 19619 218 67096 5 77.00 mm[Hg] - Sitting 137.00 mm[Hg] - Sitting 85967 219 10860 0 97.70 Tympanic 59464 219 73573 6 97.60 Tympanic 87432 219 63476 4 76.00 mm[Hg] - Sitting 139.00 mm[Hg] - Sitting 55788 219 63087 4 97.80 Forehead Scan 62224 220 24410 9 97.90 Tympanic 38769 220 21736 9 76.00 mm[Hg] - Sitting 138.00 mm[Hg] - Sitting 07878 220 32592 6 98.10 Tympanic 62370 221 58027 5 67.00 mm[Hg] - Sitting 142.00 mm[Hg] - Sitting 00532 221 18741 8 98.20 Tympanic 82122 221 49387 0 98.30 Tympanic 05750 222 95490 7 98.20 Tympanic 94499 222 22262 8 97.90 Tympanic 52713 223 09850 3 98.20 Tympanic 11721 223 85449 3 98.00 Tympanic 14369 224 03200 0 59.00 mm[Hg] - Sitting 111.00 mm[Hg] - Sitting 98.40 Forehead Scan 95.00 % 56.00/ min 18.00/min 30074 224 66207 9 98.20 Forehead Scan 00820 224 07003 3 97.90 Tympanic 00173 225 50776 4 98.20 Tympanic 05977 225 60015 8 97.50 Forehead Scan 60331 228 07723 0 55.00 mm[Hg] - Sitting 118.00 mm[Hg] - Sitting 98.40 Tympanic 69.00/ min 81239 229 80237 8 78.00 mm[Hg] - Sitting 152.00 mm[Hg] - Sitting 69320 230 93354 0 62.00 mm[Hg] - Sitting 122.00 mm[Hg] - Sitting 10952 231 98508 7 72.00 mm[Hg] - Lying Down 140.00 mm[Hg] - Lying Down 43028 101 11577 3 97.70 Forehead Scan 45332 101 24687 1 254.10 NI 69.00/ min 58062 101 97361 9 72.00 mm[Hg] - Sitting 142.00 mm[Hg] - Sitting 97.70 Tympanic 18.00/min 03213 101 06455 3 72.00 mm[Hg] - Lying Down 142.00 mm[Hg] - Lying Down 79161 102 66148 8 68.00 mm[Hg] - Lying Down 152.00 mm[Hg] - Lying Down 47228 103 38390 5 74.00 mm[Hg] - Sitting 158.00 mm[Hg] - Sitting 15249 104 43737 9 78.00 mm[Hg] - Sitting 144.00 mm[Hg] - Sitting 26091 105 63238 5 68.00 mm[Hg] - Sitting 138.00 mm[Hg] - Sitting 07309 106 72991 1 70.00 mm[Hg] - Sitting 138.00 mm[Hg] - Sitting 28901 107 99583 1 67.00 mm[Hg] - Sitting 142.00 mm[Hg] - Sitting 21184 108 25077 0 74.00 mm[Hg] - Sitting 143.00 mm[Hg] - Sitting Immunizations Vaccine Date Status [...]
--- OUTSIDE RECORDS SUMMARY | 2024-07-26 11:15 | External Medical Summary | Continuity Of Care Document ---
Author Name Unknown Address [address] [address] Organization [facility] () Care Team Providers Care Federal Mediator Name Role Phone DO Pritchett Amy Primary Care Provider [phone] Allergies Allergy Reaction Start Date End Date Status AMINOGLYCOSIDES Active CIPRO Active GENTAMICIN Active NSAIDS (NON-STEROIDAL ANTI-INFLAMMATORY DRUG) 0 Active IBUPROFEN Active QUINOLONES Active VALIUM Active Medications Medication Instructions Dosage Start Date End Date Status Order Date Drug Code Frequency Route of Admin Diagnosis Code Substitutions Allowed Spikevax 8215-0707(1 2y up)(PF) 50 mcg/0.5 mL intramuscul ar suspension [COVID [id number](12 up)(andu)(P F)] 0.5mL Intramuscular 1 time Monitory 15 Minutes post injection for adverse effects; record site/temp For COVID 19 PREVENTION 0.5mL 01/02 Inactiv e 2023 60871 96765 4 1 time Intram uscula r False [facility] - Nurse initials indicate verificatio n that [id number] vaccine was administere d by [facility] jon 1 Intramuscular 1 time ( Indicate vaccine type) For vaccine 1 05/03 Inactiv e 2023 1 time Intram uscula r False Lisinopril 40 mg tablet [generic] TAKE ONE (1) TABLET BY MOUTH IN THE MORNING. For DX- HTN 1 2023 Active 2023 43733 01976 1 Once daily By Mouth False Tizanidine 2 mg tablet [generic] TAKE ONE (1) TABLET BY MOUTH ONCE DAILY For MUSCLE SPASM 1 2023 Active 2023 30776 17897 0 Once daily By Mouth M62.838 False Tamsulosin 0.4 mg capsule [generic] TAKE (1) CAPSULE BY MOUTH AT BEDTIME For SPASMS 1 2023 Active 2023 07721 23113 0 Once daily By Mouth False Aspirin 81 mg tablet Once daily 1 TABLET BY MOUTH IN THE MORNING For DX- CAD DO NOT CRUSH, CHEW OR BREAK 81 mg 06/12 Inactiv e 2023 Once daily By Mouth False Baclofen 20 mg tablet [generic] 20 mg By Mouth 4 times a day For DX- MUSCLE SPASMS 20 mg 12/12 Inactiv e 2023 58803 04422 1 4 times a day By Mouth False Calcium citrate 250 mg tablet Once daily 4 TABLET BY MOUTH For DX- SUPPLEMENT 250 mg calci 12/12 Inactiv e 2023 Once daily By Mouth False Co Q-10 100 mg capsule 100 mg By Mouth Once daily For DX- SUPPLEMENT 100 mg 06/20 Inactiv e 2023 57383 27386 5 Once daily By Mouth False Furosemide 20 mg tablet [generic] 20 mg By Mouth Once daily For DX-CHF 20 mg 12/12 Inactiv e 2023 54533 22895 0 Once daily By Mouth False Gabapentin 300 mg capsule [generic] 300 mg By Mouth 3 times a day For DX- NEUROPATHY 300 mg 12/12 Inactiv e 2023 47859 29185 4 3 times a day By Mouth False Loratadine 10 mg tablet [generic] 10 mg By Mouth Once daily For DX- ALLERGIES 10 mg 2023 Active 2023 93805 25814 1 Once daily By Mouth False Miralax 17 gram/dose oral powder 17 gram/dose By Mouth IN THE MORNING Mix 1 TABLESPOON IN 8 OZ OF FLUID HOLD FOR LOOSE STOOLS For DX- CONSTIPATION 17 gram/do se 12/12 Inactiv e 2023 52878 52992 0 Once daily By Mouth False Paroxetine 30 mg tablet [generic] 30 mg By Mouth Once daily For DX- DEPRESSION 30 mg 2023 00/00 /0000 Active 2023 07919 67019 3 Once daily By Mouth False Potassium citrate ER 15 mEq (1,620 mg) tablet,exte nded release [generic] 15 mEq By Mouth 3 times a day For DX- SUPPLEMENT/DI URETIC USE/ HYPOCITRAUIRA DO NOT CRUSH 15 mEq 12/12 Inactiv e 2023 33910 72133 1 3 times a day By Mouth [...] For DX- DANDRUFF 12/12 Inactiv e 2023 04139 49292 4 3 times a week Topica l False Acetaminoph en 325 mg tablet [generic] TAKE 2 TABS (650MG) BY MOUTH EVERY 4 HOURS NEEDED FOR TEMP >100 NOT TO EXCEED 3GM/24HRS TAKE 2 TABS (650MG) BY MOUTH EVERY 4 HOURS NEEDED FOR TEMP >100 NOT TO EXCEED 3GM/24HRS For DX-FEVER 2 12/12 Inactiv e 2023 29685 95560 0 By Mouth False MILK OF MAGNESIA ADMINISTER 30 ML BY MOUTH ONCE DAILY NEEDED FOR CONSTIPATION X3 DAYS WITH NO BM. For DX- CONSTIPATION 30ML 12/12 Inactiv e 2023 10332 90673 9 By Mouth False Enema Disposable 19 gram-7 gram/118 mL ADMINISTER ONE ENEMA RECTALLY ONCE DAILY NEEDED FOR CONSTIPATION ON DAY 6 OF NO BM For DX- CONSTIPATION 12/12 Inactiv e 2023 49646 05076 1 Rectal False TUMS EXTRA STR 750MG TAKE (1) TABLET BY MOUTH THREE TIMES DAILY NEEDED FOR INDIGESTION For DX- INDIGESTION 1 12/12 Inactiv e 2023 53894 27885 8 By Mouth False Vitamin D3 25 [...] CONSTIPATION 10 mg 12/12 Inactiv e 2023 86753 49408 1 Rectal False Melatonin 3 mg tablet [generic] 3 mg By Mouth As Needed For DX-INSOMMIA 3 mg 12/12 Inactiv e 2023 84400 62771 8 By Mouth False Hydrocortis one 1 % topical cream [generic] 1 % Topical As Needed For DX- PAIN 1 % 12/12 Inactiv e 2023 62913 23562 1 Topica l False HYDROCORTIS ONE/PARMOXI NE [...] 5-10 50 mg 12/20 Inactiv e 2023 47436 24363 0 Every 4 hours as needed By Mouth False Tylenol 325 mg tablet 325 mg By Mouth Every 4 hours as needed For DX- PAIN PRN FOR MILD PAIN, DO NOT EXCEED 3000MG APAP/24 HOURS 325 mg 12/20 Inactiv e 2023 64082 43734 0 Every 4 hours as needed By Mouth False Baclofen 20 mg tablet [generic] 20 mg By Mouth 4 times a day For MUSCLE SPASMS 20 mg 12/20 Inactiv e 2023 55999 87384 1 4 times a day By Mouth False Calcium citrate 250 mg tablet [generic] Once daily TAKE 4 TABLETS (1000MG) BY MOUTH For SUPPLEMENT 1000 MG 06/26 Inactiv e 2023 04652 31336 6 Once daily By Mouth False Dulcolax (bisacodyl) 10 mg rectal suppository 10 mg Rectal Once daily For CONSTIPATION *MAY HOLD FOR LOOSE STOOLS* 10 mg 2023 Active 2023 87218 66710 1 Once daily Rectal False Gabapentin 300 mg capsule [generic] 300 mg By Mouth 3 times a day For NEUROPATHY 300 mg 2023 Active 2023 35183 69696 4 3 times a day By Mouth False Potassium citrate ER 15 mEq (1,620 mg) tablet,exte nded release [generic] 15 mEq By Mouth 3 times a day For SUPPLEMENT/DI URETIC USE/HYPOCITRA URIA 15 mEq 06/11 Inactiv e 2023 55076 53672 1 3 times a day By Mouth False Potassium chloride ER 20 mEq tablet,exte nded release [generic] 20 mEq By Mouth 3 times a day *DO NOT CRUSH, CHEW OR BREAK* For SUPPLEMENT 20 mEq 12/18 Inactiv e 2023 29120 90275 1 3 times a day By Mouth False Tizanidine 4 mg tablet [generic] 4 mg By Mouth Once daily For MUSCLE SPASMS 4 mg 2023 Active 2023 02121 04494 0 Once daily By Mouth False Tylenol 325 mg tablet 2 tabs By Mouth Every 4 hours as needed For Fever >100 DO NOT EXCEED 3000 MG APAP/24 Hours 2 tabs 12/20 Inactiv e 2023 93979 96629 0 Every 4 hours as needed By Mouth False Dulcolax (bisacodyl) 10 mg rectal suppository Daily as needed For Constipation 1 sup 12/20 Inactiv e 2023 11340 21111 1 Daily as needed Rectal False Fleet Enema 19 gram-7 gram/118 mL 1 Rectal Daily as neededFor Constipation 1 12/20 Inactiv e 2023 00633 31122 6 Daily as needed Rectal False Milk of Magnesia 400 mg/5 mL oral suspension [Magnesium hydroxide] PRN 30ml By Mouth Daily as needed for constipation one time daily if no BM, on day 4 of no BM (PRN refer to instructions) For Constipation For Constipatioin 30ml 12/20 Inactiv e 2023 69062 92945 6 1 time By Mouth False Melatonin 3 mg tablet [generic] 3 mg By Mouth Once daily As Needed For INSOMNIA 3 mg 12/20 Inactiv e 2023 38542 03843 8 Once daily By Mouth False Hydrocortis one 1 % topical cream [generic] 1 % Rectal Four times daily as needed For hemorroid pain 1 % 12/20 Inactiv e 2023 34420 29459 1 Four times daily as needed Rectal False X-STGH ANTACID 750MG CHEW TAKE (1) TABLET BY MOUTH THREE TIMES DAILY NEEDED FOR INDIGESTION 12/20 Inactiv e 2023 98159 46012 4 Three times daily as needed Saline Mist 0.65 % nasal spray aerosol 0.65 % Nares Four times daily as needed For DRYNESS 0.65 % 12/20 Inactiv e 2023 35913 43324 8 Four times daily as needed Nares False Vicks Vaporub 4.7 %-1.2 %-2.6 % topical ointment Apply topically to chest Three times daily as needed For CONGESTION 4.7-1.2 -2.6 12/20 Inactiv e 2023 78383 69564 1 Three times daily as needed Topica l False VITAMIN D3 2000U CAP TAKE ONE (1) CAPSULE BY MOUTH DAILY* DO NOT CRUSH, CHEW OR BREAK* For Supplement 1 capsule 12/19 Inactiv e 2023 56679 73109 0 Once daily By Mouth False Potassium chloride ER 20 mEq tablet,exte nded release(par t/cryst) [generic] TAKE (1) TABLET BY MOUTH THREE TIMES DAILY (MORNING, AFTERNOON, EVENING)*DO NOT CRUSH, CHEW, OR BREAK* For SUPPLEMENT 20 MEQ 06/11 Inactiv e 2023 17881 38754 5 3 times a day By Mouth False Aspirin 81 mg tablet,camron yed release [generic] TAKE ONE (1) TABLET BY MOUTH ONCE DAILY*DO NOT CRUSH, CHEW OR BREAK* For CAD 81 MG 12/22 Inactiv e 2023 75522 06580 0 Once daily By Mouth False Furosemide 20 mg tablet [generic] TAKE 1 AND 1/2 TABLETS (30MG) BY MOUTH ONCE DAILY For CHF 30mg 2023 Active 2023 58581 38409 1 Once daily By Mouth False Polyethylen e glycol 3350 17 gram/dose oral powder [generic] MIX 17 GRAMS (1 CAPFUL) IN 60Z OF LIQUID AND DRINK BY MOUTH ONCE DAILY *HOLD FOR LOOSE STOOLS* For constipation 17 g 2023 Active 2023 85143 28908 3 Once daily By Mouth False Vitamin D3 50 mcg (2,000 unit) capsule Once daily TAKE ONE (1) CAPSULE BY MOUTH DAILY* DO NOT CRUSH, CHEW OR BREAK* For Supplement 1 capsule 02/07 Inactiv e 2023 29817 41717 2 Once daily By Mouth False Fleet Enema 19 gram-7 gram/118 mL 1 Rectal Daily as neededFor Constipation 1 2023 0000 Active 2023 93752 23926 6 Daily as needed Rectal False Tums E-X 300 mg (as calcium carbonate 750 mg) chewable tablet 1 tab By Mouth TAKE (1) TABLET BY MOUTH THREE TIMES DAILY NEEDED FOR INDIGESTION 1 tab 202300 /0000 Active 2023 44721 71203 1 Three times daily as needed By Mouth False Tylenol 325 mg tablet 2 tabs By Mouth Every 4 hours as needed For Fever >100 DO NOT EXCEED 3000 MG APAP/24 Hours 2 tabs 202300 /0000 Active 2023 14637 34414 0 Every 4 hours as needed By Mouth False Vicks Vaporub 4.7 %-1.2 %-2.6 % topical ointment Apply topically to chest Three times daily as needed For CONGESTION topical 202300 Active 2023 89531 30338 1 Three times daily as needed Topica l False Tylenol 325 mg tablet 2 tabs By Mouth Every 4 hours as needed For DX- PAIN PRN FOR MILD PAIN, DO NOT EXCEED 3000MG APAP/24 HOURS 2 tabs 202300 Active 2023 68654 83395 0 Every 4 hours as needed By Mouth False Tramadol 50 mg tablet [generic] 1 tab By Mouth Every 4 hours as needed For DX- PAIN 5-10 1 tab 03/10 Inactiv e 2023 77027 67784 0 Every 4 hours as needed By Mouth False Saline Mist 0.65 % nasal spray aerosol 2 sprays Nares Four times daily as needed For DRYNESS 2 sprays 202300 / Active 2023 50948 20974 8 Four times daily as needed Nares False Dulcolax (bisacodyl) 10 mg rectal suppository Daily as needed For Constipation 1 sup 202300 / Active 2023 88545 26240 1 Daily as needed Rectal False Hydrocortis one-pramoxi ne 1 %-1 % rectal cream [generic] 1 mague Rectal Four times daily as needed For hemorroid pain 1 mague 202300 /0000 Active 2023 33232 62694 4 Four times daily as needed Rectal False Melatonin 3 mg tablet [generic] 1 tab By Mouth At bedtime as needed For INSOMNIA 1 tab 12/24 Inactiv e 2023 15005 40122 8 At bedtime as needed By Mouth False Milk of Magnesia 400 mg/5 mL oral suspension 30ml By Mouth Daily as needed Daily as needed for constipation one time daily if no BM, on day 4 of no BM (PRN refer to instructions) For Constipation For Constipatioin 30ml 2023 Active 2023 19712 40327 2 Daily as needed By Mouth False Baclofen 20 mg tablet [generic] 20 mg By Mouth 4 times a day For MUSCLE SPASMS 20 mg 2023 Active 2023 62313 89102 1 4 times a day By Mouth False Melatonin 3 mg tablet [generic] 1 tab By Mouth At bedtime as needed For INSOMNIA 1 tab 2023 Active 2023 52567 17313 8 At bedtime as needed By Mouth False Bactrim DS 800 mg-160 mg tablet 1 tab By Mouth Twice daily For URINARY TRACT INFECTION, SITE NOT SPECIFIED 1 tab 01/06 Inactiv e 2023 88021 73983 1 Twice daily By Mouth N39.0 False Cefdinir 300 mg capsule [generic] 300 mg By Mouth Twice daily For UTI 300 mg 01/07 Inactiv e 2023 96857 46683 0 Twice daily By Mouth False Cefdinir 300 mg capsule [generic] 300 mg By Mouth Twice daily For UTI 300 mg 01/17 Inactiv e 2023 40644 44240 0 Twice daily By Mouth False Zyrtec 10 mg tablet 10 mg By Mouth Once daily For sinus congestion 10 mg 01/22 Inactiv e 2023 44067 09745 0 Once daily By Mouth False Tobramycin 0.3 %-dexametha sone 0.1 % eye drops,suspe nsion [generic] 0.3-0.1 % Left Eye 4 times a day For eye infection 0.3-0.1 % 02/05 Inactiv e 2023 47818 20847 5 4 times a day Left Eye False Fluconazole 150 mg tablet [generic] 150 mg By Mouth 1 time For yeast infection 150 mg 02/15 Inactiv e 2023 98735 87521 2 1 time By Mouth False Tramadol 50 mg tablet [generic] 1 tab By Mouth Every 4 hours as needed For DX- PAIN 5-10 1 tab 2023 00/00 /0000 Active 2023 18375 21776 0 Every 4 hours as needed By Mouth False Tobramycin 0.3 %-dexametha sone 0.1 % eye drops,suspe nsion [generic] 1 drop Left Eye 4 times a day For Inflammation of left eye 1 drop 05/08 Inactiv e 2023 75351 96743 5 4 times a day Left Eye False Voltaren Arthritis Pain 1 % topical gel 2 gm Topical Twice daily to rigth shoulder for 2 weeks For pain 2 gm 05/08 Inactiv e 2023 71786 41190 1 Twice daily Topica l False Chlorthalid one 25 mg tablet [generic] 12.5mg By Mouth Once daily For HTN 12.5mg 05/06 Inactiv e 2023 24848 52833 0 Once daily By Mouth False Chlorthalid one 25 mg tablet [generic] 12.5mg By Mouth Once daily For HTN 12.5mg 05/07 Inactiv e 2023 91665 71609 0 Once daily By Mouth False Chlorthalid one 25 mg tablet [generic] 05/07 Inactiv e 2023 68227 46835 0 Chlorthalid one 25 mg tablet [generic] 12.5mg By Mouth Once daily For HTN 12.5mg 06/26 Inactiv e 2023 82301 19227 0 Once daily By Mouth False Norvasc 5 mg tablet 5mg By Mouth Once daily, hold medication if systolic is less than 90 For HYPERTENSIVE HEART DISEASE WITHOUT HEART FAILURE 5mg 06/03 Inactiv e 2023 45602 95003 1 Once daily By Mouth I11.9 False Norvasc 5 mg tablet 5mg By Mouth Once daily, hold medication if systolic is less than 90 For HYPERTENSIVE HEART DISEASE WITHOUT HEART FAILURE 5mg 06/03 Inactiv e 2023 24943 64048 1 Once daily By Mouth I11.9 False Norvasc 5 mg tablet 5mg By Mouth Once daily, hold medication if systolic is less than 90 For HYPERTENSIVE HEART DISEASE WITHOUT HEART FAILURE 5mg 06/26 Inactiv e 2023 63200 50595 1 Once daily By Mouth I11.9 False [...] 10 mg 2023 00/00 /0000 Active 2023 04538 77539 1 Once daily By Mouth False DISCONTINUE [...] CAD 81 mg 06/14 Inactiv e 2023 63675 76597 9 Once daily By Mouth False Aspirin 81 mg tablet,camron yed release [generic] 06/14 Inactiv e 2023 68193 86233 9 Aspirin 81 mg tablet,camron yed release [generic] 81 mg By Mouth Once daily Do not crush, chew, or break For CAD 81 mg 06/154 Inactiv e 2023 72369 41852 9 Once daily By Mouth False Cefpodoxime 200 mg tablet [generic] 200mg By Mouth Twice daily For UTI 200mg 07/04 Inactiv e 2023 42549 11990 0 Twice daily By Mouth False Calcium citrate 250 mg tablet [generic] 06/26 Inactiv e 2023 34618 32835 6 Calcium citrate 250 mg tablet [generic] Once daily TAKE 4 TABLETS (1000MG) BY MOUTH For SUPPLEMENT 500 MG 2023 Active 2023 81197 92122 6 Once daily By Mouth False Norvasc 5 mg tablet 7.5 mg By Mouth Once daily Hold medication if SBP <90 For HYPERTENSIVE HEART DISEASE WITHOUT HEART FAILURE 7.5 mg 06/30 Inactiv e 2023 32201 42667 1 Once daily By Mouth I11.9 False Norvasc 5 mg tablet 7.5 mg By Mouth Once daily Hold medication if SBP <90 For HYPERTENSIVE HEART DISEASE WITHOUT HEART FAILURE 7.5 mg 07/06 Inactiv e 2023 05553 92625 1 Once daily By Mouth I11.9 False Simethicone 125 mg capsule [generic] 2 capule By Mouth Twice daily as needed For bloating/gas pain 2 capule 2023 Active 2023 54243 69390 0 Twice daily as needed By Mouth False Cepacol Sore Throat (benzocaine -menthol) 15 mg-2.6 mg lozenges 2 lozenges By Mouth Every 6 hours as needed For sore throat 2 lozenge s 2023 Active 2023 94188 40609 6 Every 6 hours as needed By Mouth False Cefepime 1 gram solution for injection [generic] 1g Intramuscular Every 12 hours 1g intramuscular ly ever 12 hours For UTI 1g 07/06 Inactiv e 2023 78744 82793 4 Every 12 hours Intram uscula r False Cefepime 1 gram solution for injection [generic] 07/06 Inactiv e 2023 17216 74917 4 Cefepime 1 gram solution for injection [generic] 1g Intramuscular Every 12 hours 1g intramuscular ly ever 12 hours For UTI Reconstitute with 2.4 ML of NSS. 1g 07/08 Inactiv e 2023 85349 48426 4 Every 12 hours Intram uscula r False Norvasc 5 mg tablet 07/06 Inactiv e 2023 29098 63394 1 I11.9 Norvasc 5 mg tablet 7.5 mg By Mouth Once daily Hold medication if SBP <90 For HYPERTENSIVE HEART DISEASE WITHOUT HEART FAILURE 7.5 mg 07/18 Inactiv e 2023 68623 98052 1 Once daily By Mouth I11.9 False Cefepime 1 gram solution for injection [generic] 07/08 Inactiv e 2023 19381 19708 4 Cefepime 1 gram solution for injection [generic] 1g Intramuscular Every 12 hours 1g intramuscular ly ever 12 hours For UTI Reconstitute with 2.4 ML of NSS. 1g 07/08 Inactiv e 2023 56301 27289 4 Every 12 hours Intram uscula r False Cefepime 1 gram solution for injection [generic] 07/08 Inactiv e 2023 74429 33575 4 Cefepime 1 gram solution for injection [generic] 1g Intramuscular Every 12 hours 1g intramuscular ly ever 12 hours For UTI Reconstitute with 2.4 ML of NSS. 1g 07/11 Inactiv e 2023 14590 60601 4 Every 12 hours Intram uscula r False Fleet Enema 19 gram-7 gram/118 mL 1 Rectal 1 time For constipation 1 07/16 Inactiv e 2024 76578 75912 6 1 time Rectal False Fleet Enema 19 gram-7 gram/118 mL 1 Rectal 1 time For constipation 1 07/17 Inactiv e 2024 09161 20401 6 1 time Rectal False Norvasc 5 mg tablet 7.5 mg By Mouth Once daily For HYPERTENSIVE HEART DISEASE WITHOUT HEART FAILURE 7.5 mg 2024 00/00 /0000 Active 2024 29089 32793 1 Once daily By Mouth I11.9 False Potassium chloride ER 20 mEq tablet,exte nded release(par t/cryst) [generic] 40 mEq By Mouth 1 time For low potassium prior to surgery 40 mEq 07/18 Inactiv e 2024 27548 77435 1 1 time By Mouth False Potassium chloride ER 20 mEq tablet,exte nded release(par t/cryst) [generic] 40 mEq By Mouth 1 time For low potassium prior to surgery 40 mEq 07/18 Inactiv e 2024 87401 33138 1 1 time By Mouth False Potassium chloride ER 20 mEq tablet,exte nded release(par t/cryst) [generic] 40 mEq By Mouth 1 time For low potassium 40 mEq 07/18 Inactiv e 2024 97414 98331 1 1 time By Mouth False Potassium chloride ER 20 mEq tablet,exte nded release(par t/cryst) [generic] 40 mEq By Mouth 1 time For low potassium 40 mEq 07/18 Inactiv e 2024 14962 1 1 time By Mouth False Potassium chloride ER 20 mEq tablet,exte nded release [generic] 2 By Mouth 1 time For low potassium 2 07/19 Inactiv e 2024 55767 14985 1 1 time By Mouth False Potassium chloride ER 20 mEq tablet,exte nded release [generic] 2 capsules capsules By Mouth 1 time Please send capsule (2 capsules) For low potassium 2 capsule s 07/20 Inactiv e 2024 32537 56860 1 1 time By Mouth False Potassium chloride ER 20 mEq tablet,exte nded release(par t/cryst) [generic] TAKE (2) TABLETS (40MEQ) BY MOUTH X1 DOSE 07/20 Inactiv e 2024 67550 88370 5 Cefepime 1 gram solution for injection [generic] 1 gram Intramuscular Every 12 hours For Urinary Tract Infection 1 gram 07/21 Inactiv e 2024 63436 27143 4 Every 12 hours Intram uscula r False Cefepime 1 gram solution for injection [generic] 07/21 Inactiv e 2024 39182 98161 4 Cefepime 1 gram solution for injection [generic] 1 gram Intramuscular Every 12 hours For Urinary Tract Infection 1 gram 08/04 Active 2024 58470 31954 4 Every 12 hours Intram uscula r False Nystatin 100,000 unit/gram topical cream [generic] 100,000 unit Topical As Needed For DX- EXCORIATION 100,000 unit 12/12 Inactiv e 2023 21418 81454 5 Topica l False Vicks Vaporub 4.7 %-1.2 %-2.6 % topical ointment 4.7-1.2-2.6 Topical 3 times a day As Needed For DX- CONGESTION 4.7-1.2 -2.6 12/12 Inactiv e 2023 86653 80422 1 3 times a day Topica l False Ketoconazol e 2 % shampoo [generic] APPLY SHAMPOO TOPICALLY TO SCALP DURING HAIR WASHINGDX: ELVIA DERM OF SCALP For DX- ELVIA DERM OF SCALP 12/12 Inactiv e 2023 43318 99550 4 Topica l False THERA SILICONE SKIN GUARD Topical Twice daily 1 APPLICATION TOPICALLY IN THE MORNING AND AT BEDTIME TO SCROTUM For DX- PREVENTION 2023 00/00 / Active 2023 Twice daily Topica l False Selenium sulfide 2.5 % lotion [generic] 2.5 % Topical EVERY MONDAY, MONDAY AND MONDAY AFTER SHOWER For DANDRUFF 2.5 % 2023 00/00 / Active 2023 20381 93353 4 3 times a week Topica l False Nystatin (bulk) 100 million unit powder [generic] 100 million Topical Twice daily as needed For EXOCORATION 100 million 12/20 Inactiv e 2023 30699 07858 1 Twice daily as needed Topica l False Ketoconazol e 2 % shampoo [generic] Once daily APPLY SHAMPOO TOPICALLY TO SCALP DURING HAIR WASHING ON SHOWER DAYS- JOSHMICHELLELITTLE, SAT For ELVIA DERM OF SCAP 2 % 2023 Active 2023 96021 70293 4 Once daily Topica l False Nystatin 100,000 unit/gram topical cream [generic] 1 mague Topical Twice daily as needed For EXOCORATION 1 mague 06/05 Inactiv e 2023 46532 98103 5 Twice daily as needed Topica l False Nystatin 100,000 unit/gram topical powder [generic] 100,000 unit Topical Twice daily to scrotum with AM and PM care For Scrotal excoriation 100,000 unit 06/05 Inactiv e 2023 40006 39688 5 Twice daily Topica l False Problems [...] adjustment of urinary device 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 07/21 Active N31.9 [...] weight Temperature SpO2 Blood Sugar Pulse Respirations 54556 216 44185 1 254[place]10 [place] [address]004 216 41302 2 79.00 mm[Hg] - Sitting 157.00 mm[Hg] - Sitting 73 NI 254.10 NI 36.30 Tympanic 95.00 % 72.00/ min 16.00/min 36150 216 58043 4 98.80 Tympanic 15723 216 52108 2 78.00 mm[Hg] - Sitting 164.00 mm[Hg] - Sitting 21729 217 56790 3 98.20 Tympanic 15961 217 29282 5 73.00 mm[Hg] - Sitting 159.00 mm[Hg] - Sitting 86901 217 85338 9 98.40 Forehead Scan 18015 218 50084 3 97.90 Tympanic 90221 218 79323 5 77.00 mm[Hg] - Sitting 137.00 mm[Hg] - Sitting 72233 219 98647 0 97.70 Tympanic 89183 219 51931 6 97.60 Tympanic 51698 219 36311 4 76.00 mm[Hg] - Sitting 139.00 mm[Hg] - Sitting 59965 219 20835 4 97.80 Forehead Scan 65033 220 95840 9 97.90 Tympanic 93781 220 40347 9 76.00 mm[Hg] - Sitting 138.00 mm[Hg] - Sitting 35658 220 07284 6 98.10 Tympanic 55807 221 49861 5 67.00 mm[Hg] - Sitting 142.00 mm[Hg] - Sitting 52674 221 59402 8 98.20 Tympanic 45184 221 43230 0 98.30 Tympanic 21329 222 70859 7 98.20 Tympanic 44202 222 52925 8 97.90 Tympanic 58071 223 15870 3 98.20 Tympanic 32800 223 66742 3 98.00 Tympanic 69622 224 16101 0 59.00 mm[Hg] - Sitting 111.00 mm[Hg] - Sitting 98.40 Forehead Scan 95.00 % 56.00/ min 18.00/min 13799 224 93886 9 98.20 Forehead Scan 20024 224 92100 3 97.90 Tympanic 89102 225 98214 4 98.20 Tympanic 67920 225 90204 8 97.50 Forehead Scan 78153 228 09059 0 55.00 mm[Hg] - Sitting 118.00 mm[Hg] - Sitting 98.40 Tympanic 69.00/ min 73053 229 37019 8 78.00 mm[Hg] - Sitting 152.00 mm[Hg] - Sitting 94941 230 07249 0 62.00 mm[Hg] - Sitting 122.00 mm[Hg] - Sitting 02617 231 61419 7 72.00 mm[Hg] - Lying Down 140.00 mm[Hg] - Lying Down 62338 101 82811 3 97.70 Forehead Scan 45951 101 32080 1 254.10 NI 69.00/ min 05106 101 55674 9 72.00 mm[Hg] - Sitting 142.00 mm[Hg] - Sitting 97.70 Tympanic 18.00/min 40548 101 42165 3 72.00 mm[Hg] - Lying Down 142.00 mm[Hg] - Lying Down 93572 102 55609 8 68.00 mm[Hg] - Lying Down 152.00 mm[Hg] - Lying Down 93116 103 64871 5 74.00 mm[Hg] - Sitting 158.00 mm[Hg] - Sitting 80302 104 38204 9 78.00 mm[Hg] - Sitting 144.00 mm[Hg] - Sitting 99413 105 85968 5 68.00 mm[Hg] - Sitting 138.00 mm[Hg] - Sitting 24658 106 58801 1 70.00 mm[Hg] - Sitting 138.00 mm[Hg] - Sitting 94077 107 11118 1 67.00 mm[Hg] - Sitting 142.00 mm[Hg] - Sitting 97805 108 86865 0 74.00 mm[Hg] - Sitting 143.00 mm[Hg] - Sitting 98482 110 92204 6 85.00 mm[Hg] - Sitting 160.00 mm[Hg] - Sitting 97.80 Tympanic 93.00 % 76.00/ min 18.00/min 75933 111 07162 1 83.00 mm[Hg] - Sitting 129.00 mm[Hg] - Sitting 98.60 Tympanic 92.00 % 71.00/ min 18.00/min 28132 111 79395 5 60.00 mm[Hg] - Sitting 114.00 mm[Hg] [...]
--- OUTSIDE RECORDS SUMMARY | 2024-07-26 11:15 | External Medical Summary | Continuity Of Care Document ---
Author Name Unknown Address [address] [place] [address] Organization [facility] () Care Team Providers Care Senior Technical Analyst Name Role Phone DO Pritchett Amy Primary Care Provider [phone] Allergies Allergy Reaction Start Date End Date Status AMINOGLYCOSIDES Active CIPRO Active GENTAMICIN Active NSAIDS (NON-STEROIDAL ANTI-INFLAMMATORY DRUG) 0 Active IBUPROFEN Active QUINOLONES Active VALIUM Active Medications Medication Instructions Dosage Start Date End Date Status Order Date Drug Code Frequency Route of Admin Diagnosis Code Substitutions Allowed Spikevax [id number](1 2y up)(PF) 50 mcg/0.5 mL intramuscul ar suspension [COVID [id number](12 up)(andu)(P F)] 0.5mL Intramuscular 1 time Monitory 15 Minutes post injection for adverse effects; record site/temp For COVID 19 PREVENTION 0.5mL 01/02 Inactiv e 2023 88316 56460 4 1 time Intram uscula r False [facility] - Nurse initials indicate verificatio n that [id number] vaccine was administere d by [facility] Representat jon 1 Intramuscular 1 time ( Indicate vaccine type) For vaccine 1 05/03 Inactiv e 2023 1 time Intram uscula r False Lisinopril 40 mg tablet [generic] TAKE ONE (1) TABLET BY MOUTH IN THE MORNING. For DX- HTN 1 2023 Active 2023 65667 56830 1 Once daily By Mouth False Tizanidine 2 mg tablet [generic] TAKE ONE (1) TABLET BY MOUTH ONCE DAILY For MUSCLE SPASM 1 2023 Active 2023 34458 83313 0 Once daily By Mouth M62.838 False Tamsulosin 0.4 mg capsule [generic] TAKE (1) CAPSULE BY MOUTH AT BEDTIME For SPASMS 1 2023 Active 2023 82383 85069 0 Once daily By Mouth False Aspirin 81 mg tablet Once daily 1 TABLET BY MOUTH IN THE MORNING For DX- CAD DO NOT CRUSH, CHEW OR BREAK 81 mg 06/12 Inactiv e 2023 Once daily By Mouth False Baclofen 20 mg tablet [generic] 20 mg By Mouth 4 times a day For DX- MUSCLE SPASMS 20 mg 12/12 Inactiv e 2023 60019 57657 1 4 times a day By Mouth False Calcium citrate 250 mg tablet Once daily 4 TABLET BY MOUTH For DX- SUPPLEMENT 250 mg calci 12/12 Inactiv e 2023 Once daily By Mouth False Co Q-10 100 mg capsule 100 mg By Mouth Once daily For DX- SUPPLEMENT 100 mg 06/20 Inactiv e 2023 05884 99320 5 Once daily By Mouth False Furosemide 20 mg tablet [generic] 20 mg By Mouth Once daily For DX-CHF 20 mg 12/12 Inactiv e 2023 43694 43115 0 Once daily By Mouth False Gabapentin 300 mg capsule [generic] 300 mg By Mouth 3 times a day For DX- NEUROPATHY 300 mg 12/12 Inactiv e 2023 36015 88938 4 3 times a day By Mouth False Loratadine 10 mg tablet [generic] 10 mg By Mouth Once daily For DX- ALLERGIES 10 mg 2023 Active 2023 08880 22417 1 Once daily By Mouth False Miralax 17 gram/dose oral powder 17 gram/dose By Mouth IN THE MORNING Mix 1 TABLESPOON IN 8 OZ OF FLUID HOLD FOR LOOSE STOOLS For DX- CONSTIPATION 17 gram/do se 12/12 Inactiv e 2023 80743 37594 0 Once daily By Mouth False Paroxetine 30 mg tablet [generic] 30 mg By Mouth Once daily For DX- DEPRESSION 30 mg 2023 00/00 /0000 Active 2023 16759 47168 3 Once daily By Mouth False Potassium citrate ER 15 mEq (1,620 mg) tablet,exte nded release [generic] 15 mEq By Mouth 3 times a day For DX- SUPPLEMENT/DI URETIC USE/ HYPOCITRAUIRA DO NOT CRUSH 15 mEq 12/12 Inactiv e 2023 09578 70947 1 3 times a day By Mouth [...] For DX- DANDRUFF 12/12 Inactiv e 2023 93462 43688 4 3 times a week Topica l False Acetaminoph en 325 mg tablet [generic] TAKE 2 TABS (650MG) BY MOUTH EVERY 4 HOURS NEEDED FOR TEMP >100 NOT TO EXCEED 3GM/24HRS TAKE 2 TABS (650MG) BY MOUTH EVERY 4 HOURS NEEDED FOR TEMP >100 NOT TO EXCEED 3GM/24HRS For DX-FEVER 2 12/12 Inactiv e 2023 86399 27229 0 By Mouth False MILK OF MAGNESIA ADMINISTER 30 ML BY MOUTH ONCE DAILY NEEDED FOR CONSTIPATION X3 DAYS WITH NO BM. For DX- CONSTIPATION 30ML 12/12 Inactiv e 2023 19746 97483 9 By Mouth False Enema Disposable 19 gram-7 gram/118 mL ADMINISTER ONE ENEMA RECTALLY ONCE DAILY NEEDED FOR CONSTIPATION ON DAY 6 OF NO BM For DX- CONSTIPATION 12/12 Inactiv e 2023 06162 79995 1 Rectal False TUMS EXTRA STR 750MG TAKE (1) TABLET BY MOUTH THREE TIMES DAILY NEEDED FOR INDIGESTION For DX- INDIGESTION 1 12/12 Inactiv e 2023 80508 88636 8 By Mouth False Vitamin D3 25 [...] CONSTIPATION 10 mg 12/12 Inactiv e 2023 52903 43372 1 Rectal False Melatonin 3 mg tablet [generic] 3 mg By Mouth As Needed For DX-INSOMMIA 3 mg 12/12 Inactiv e 2023 90263 73707 8 By Mouth False Hydrocortis one 1 % topical cream [generic] 1 % Topical As Needed For DX- PAIN 1 % 12/12 Inactiv e 2023 28641 54957 1 Topica l False HYDROCORTIS ONE/PARMOXI NE [...] 5-10 50 mg 12/20 Inactiv e 2023 00581 74605 0 Every 4 hours as needed By Mouth False Tylenol 325 mg tablet 325 mg By Mouth Every 4 hours as needed For DX- PAIN PRN FOR MILD PAIN, DO NOT EXCEED 3000MG APAP/24 HOURS 325 mg 12/20 Inactiv e 2023 58563 20822 0 Every 4 hours as needed By Mouth False Baclofen 20 mg tablet [generic] 20 mg By Mouth 4 times a day For MUSCLE SPASMS 20 mg 12/20 Inactiv e 2023 09072 53307 1 4 times a day By Mouth False Calcium citrate 250 mg tablet [generic] Once daily TAKE 4 TABLETS (1000MG) BY MOUTH For SUPPLEMENT 1000 MG 06/26 Inactiv e 2023 94690 15224 6 Once daily By Mouth False Dulcolax (bisacodyl) 10 mg rectal suppository 10 mg Rectal Once daily For CONSTIPATION *MAY HOLD FOR LOOSE STOOLS* 10 mg 2023 Active 2023 09653 02503 1 Once daily Rectal False Gabapentin 300 mg capsule [generic] 300 mg By Mouth 3 times a day For NEUROPATHY 300 mg 2023 Active 2023 01574 99244 4 3 times a day By Mouth False Potassium citrate ER 15 mEq (1,620 mg) tablet,exte nded release [generic] 15 mEq By Mouth 3 times a day For SUPPLEMENT/DI URETIC USE/HYPOCITRA URIA 15 mEq 06/11 Inactiv e 2023 02901 94487 1 3 times a day By Mouth False Potassium chloride ER 20 mEq tablet,exte nded release [generic] 20 mEq By Mouth 3 times a day *DO NOT CRUSH, CHEW OR BREAK* For SUPPLEMENT 20 mEq 12/18 Inactiv e 2023 97371 29438 1 3 times a day By Mouth False Tizanidine 4 mg tablet [generic] 4 mg By Mouth Once daily For MUSCLE SPASMS 4 mg 2023 Active 2023 89663 59154 0 Once daily By Mouth False Tylenol 325 mg tablet 2 tabs By Mouth Every 4 hours as needed For Fever >100 DO NOT EXCEED 3000 MG APAP/24 Hours 2 tabs 12/20 Inactiv e 2023 08404 45520 0 Every 4 hours as needed By Mouth False Dulcolax (bisacodyl) 10 mg rectal suppository Daily as needed For Constipation 1 sup 12/20 Inactiv e 2023 46766 74354 1 Daily as needed Rectal False Fleet Enema 19 gram-7 gram/118 mL 1 Rectal Daily as neededFor Constipation 1 12/20 Inactiv e 2023 53783 07826 6 Daily as needed Rectal False Milk of Magnesia 400 mg/5 mL oral suspension [Magnesium hydroxide] PRN 30ml By Mouth Daily as needed for constipation one time daily if no BM, on day 4 of no BM (PRN refer to instructions) For Constipation For Constipatioin 30ml 12/20 Inactiv e 2023 48015 82483 6 1 time By Mouth False Melatonin 3 mg tablet [generic] 3 mg By Mouth Once daily As Needed For INSOMNIA 3 mg 12/20 Inactiv e 2023 88571 96184 8 Once daily By Mouth False Hydrocortis one 1 % topical cream [generic] 1 % Rectal Four times daily as needed For hemorroid pain 1 % 12/20 Inactiv e 2023 93861 64553 1 Four times daily as needed Rectal False X-STGH ANTACID 750MG CHEW TAKE (1) TABLET BY MOUTH THREE TIMES DAILY NEEDED FOR INDIGESTION 12/20 Inactiv e 2023 03624 03636 4 Three times daily as needed Saline Mist 0.65 % nasal spray aerosol 0.65 % Nares Four times daily as needed For DRYNESS 0.65 % 12/20 Inactiv e 2023 18513 82075 8 Four times daily as needed Nares False Vicks Vaporub 4.7 %-1.2 %-2.6 % topical ointment Apply topically to chest Three times daily as needed For CONGESTION 4.7-1.2 -2.6 12/20 Inactiv e 2023 43228 83667 1 Three times daily as needed Topica l False VITAMIN D3 2000U CAP TAKE ONE (1) CAPSULE BY MOUTH DAILY* DO NOT CRUSH, CHEW OR BREAK* For Supplement 1 capsule 12/19 Inactiv e 2023 63232 62891 0 Once daily By Mouth False Potassium chloride ER 20 mEq tablet,exte nded release(par t/cryst) [generic] TAKE (1) TABLET BY MOUTH THREE TIMES DAILY (MORNING, AFTERNOON, EVENING)*DO NOT CRUSH, CHEW, OR BREAK* For SUPPLEMENT 20 MEQ 06/11 Inactiv e 2023 43500 09807 5 3 times a day By Mouth False Aspirin 81 mg tablet,camron yed release [generic] TAKE ONE (1) TABLET BY MOUTH ONCE DAILY*DO NOT CRUSH, CHEW OR BREAK* For CAD 81 MG 12/22 Inactiv e 2023 97300 06517 0 Once daily By Mouth False Furosemide 20 mg tablet [generic] TAKE 1 AND 1/2 TABLETS (30MG) BY MOUTH ONCE DAILY For CHF 30mg 2023 Active 2023 30067 54332 1 Once daily By Mouth False Polyethylen e glycol 3350 17 gram/dose oral powder [generic] MIX 17 GRAMS (1 CAPFUL) IN 60Z OF LIQUID AND DRINK BY MOUTH ONCE DAILY *HOLD FOR LOOSE STOOLS* For constipation 17 g 2023 Active 2023 57047 87500 3 Once daily By Mouth False Vitamin D3 50 mcg (2,000 unit) capsule Once daily TAKE ONE (1) CAPSULE BY MOUTH DAILY* DO NOT CRUSH, CHEW OR BREAK* For Supplement 1 capsule 02/07 Inactiv e 2023 02723 35730 2 Once daily By Mouth False Fleet Enema 19 gram-7 gram/118 mL 1 Rectal Daily as neededFor Constipation 1 2023 0000 Active 2023 28737 56059 6 Daily as needed Rectal False Tums E-X 300 mg (as calcium carbonate 750 mg) chewable tablet 1 tab By Mouth TAKE (1) TABLET BY MOUTH THREE TIMES DAILY NEEDED FOR INDIGESTION 1 tab 202300 /0000 Active 2023 00081 91338 1 Three times daily as needed By Mouth False Tylenol 325 mg tablet 2 tabs By Mouth Every 4 hours as needed For Fever >100 DO NOT EXCEED 3000 MG APAP/24 Hours 2 tabs 202300 /0000 Active 2023 67207 72058 0 Every 4 hours as needed By Mouth False Vicks Vaporub 4.7 %-1.2 %-2.6 % topical ointment Apply topically to chest Three times daily as needed For CONGESTION topical 202300 Active 2023 48617 26050 1 Three times daily as needed Topica l False Tylenol 325 mg tablet 2 tabs By Mouth Every 4 hours as needed For DX- PAIN PRN FOR MILD PAIN, DO NOT EXCEED 3000MG APAP/24 HOURS 2 tabs 202300 Active 2023 16984 59677 0 Every 4 hours as needed By Mouth False Tramadol 50 mg tablet [generic] 1 tab By Mouth Every 4 hours as needed For DX- PAIN 5-10 1 tab 03/10 Inactiv e 2023 49986 63006 0 Every 4 hours as needed By Mouth False Saline Mist 0.65 % nasal spray aerosol 2 sprays Nares Four times daily as needed For DRYNESS 2 sprays 202300 / Active 2023 40875 50663 8 Four times daily as needed Nares False Dulcolax (bisacodyl) 10 mg rectal suppository Daily as needed For Constipation 1 sup 202300 / Active 2023 94097 10723 1 Daily as needed Rectal False Hydrocortis one-pramoxi ne 1 %-1 % rectal cream [generic] 1 mague Rectal Four times daily as needed For hemorroid pain 1 mague 202300 /0000 Active 2023 61049 73281 4 Four times daily as needed Rectal False Melatonin 3 mg tablet [generic] 1 tab By Mouth At bedtime as needed For INSOMNIA 1 tab 12/24 Inactiv e 2023 80694 28453 8 At bedtime as needed By Mouth False Milk of Magnesia 400 mg/5 mL oral suspension 30ml By Mouth Daily as needed Daily as needed for constipation one time daily if no BM, on day 4 of no BM (PRN refer to instructions) For Constipation For Constipatioin 30ml 2023 Active 2023 94797 73373 2 Daily as needed By Mouth False Baclofen 20 mg tablet [generic] 20 mg By Mouth 4 times a day For MUSCLE SPASMS 20 mg 2023 Active 2023 71069 58038 1 4 times a day By Mouth False Melatonin 3 mg tablet [generic] 1 tab By Mouth At bedtime as needed For INSOMNIA 1 tab 2023 Active 2023 55340 43608 8 At bedtime as needed By Mouth False Bactrim DS 800 mg-160 mg tablet 1 tab By Mouth Twice daily For URINARY TRACT INFECTION, SITE NOT SPECIFIED 1 tab 01/06 Inactiv e 2023 29931 10958 1 Twice daily By Mouth N39.0 False Cefdinir 300 mg capsule [generic] 300 mg By Mouth Twice daily For UTI 300 mg 01/07 Inactiv e 2023 54307 33294 0 Twice daily By Mouth False Cefdinir 300 mg capsule [generic] 300 mg By Mouth Twice daily For UTI 300 mg 01/17 Inactiv e 2023 22318 87780 0 Twice daily By Mouth False Zyrtec 10 mg tablet 10 mg By Mouth Once daily For sinus congestion 10 mg 01/22 Inactiv e 2023 00994 32516 0 Once daily By Mouth False Tobramycin 0.3 %-dexametha sone 0.1 % eye drops,suspe nsion [generic] 0.3-0.1 % Left Eye 4 times a day For eye infection 0.3-0.1 % 02/05 Inactiv e 2023 22425 45525 5 4 times a day Left Eye False Fluconazole 150 mg tablet [generic] 150 mg By Mouth 1 time For yeast infection 150 mg 02/15 Inactiv e 2023 93622 51575 2 1 time By Mouth False Tramadol 50 mg tablet [generic] 1 tab By Mouth Every 4 hours as needed For DX- PAIN 5-10 1 tab 2023 00/00 /0000 Active 2023 48169 47465 0 Every 4 hours as needed By Mouth False Tobramycin 0.3 %-dexametha sone 0.1 % eye drops,suspe nsion [generic] 1 drop Left Eye 4 times a day For Inflammation of left eye 1 drop 05/08 Inactiv e 2023 92759 74428 5 4 times a day Left Eye False Voltaren Arthritis Pain 1 % topical gel 2 gm Topical Twice daily to rigth shoulder for 2 weeks For pain 2 gm 05/08 Inactiv e 2023 42362 37008 1 Twice daily Topica l False Chlorthalid one 25 mg tablet [generic] 12.5mg By Mouth Once daily For HTN 12.5mg 05/06 Inactiv e 2023 37581 14990 0 Once daily By Mouth False Chlorthalid one 25 mg tablet [generic] 12.5mg By Mouth Once daily For HTN 12.5mg 05/07 Inactiv e 2023 13851 44255 0 Once daily By Mouth False Chlorthalid one 25 mg tablet [generic] 05/07 Inactiv e 2023 62658 06320 0 Chlorthalid one 25 mg tablet [generic] 12.5mg By Mouth Once daily For HTN 12.5mg 06/26 Inactiv e 2023 10835 76277 0 Once daily By Mouth False Norvasc 5 mg tablet 5mg By Mouth Once daily, hold medication if systolic is less than 90 For HYPERTENSIVE HEART DISEASE WITHOUT HEART FAILURE 5mg 06/03 Inactiv e 2023 32237 22989 1 Once daily By Mouth I11.9 False Norvasc 5 mg tablet 5mg By Mouth Once daily, hold medication if systolic is less than 90 For HYPERTENSIVE HEART DISEASE WITHOUT HEART FAILURE 5mg 06/03 Inactiv e 2023 17856 80930 1 Once daily By Mouth I11.9 False Norvasc 5 mg tablet 5mg By Mouth Once daily, hold medication if systolic is less than 90 For HYPERTENSIVE HEART DISEASE WITHOUT HEART FAILURE 5mg 06/26 Inactiv e 2023 03494 63204 1 Once daily By Mouth I11.9 False [...] 10 mg 2023 00/00 /0000 Active 2023 88976 58099 1 Once daily By Mouth False DISCONTINUE [...] CAD 81 mg 06/14 Inactiv e 2023 67793 93761 9 Once daily By Mouth False Aspirin 81 mg tablet,camron yed release [generic] 06/14 Inactiv e 2023 02188 52882 9 Aspirin 81 mg tablet,camron yed release [generic] 81 mg By Mouth Once daily Do not crush, chew, or break For CAD 81 mg 06/154 Inactiv e 2023 64535 55094 9 Once daily By Mouth False Cefpodoxime 200 mg tablet [generic] 200mg By Mouth Twice daily For UTI 200mg 07/04 Inactiv e 2023 10881 44650 0 Twice daily By Mouth False Calcium citrate 250 mg tablet [generic] 06/26 Inactiv e 2023 23099 09137 6 Calcium citrate 250 mg tablet [generic] Once daily TAKE 4 TABLETS (1000MG) BY MOUTH For SUPPLEMENT 500 MG 2023 Active 2023 60463 53048 6 Once daily By Mouth False Norvasc 5 mg tablet 7.5 mg By Mouth Once daily Hold medication if SBP <90 For HYPERTENSIVE HEART DISEASE WITHOUT HEART FAILURE 7.5 mg 06/30 Inactiv e 2023 12478 88365 1 Once daily By Mouth I11.9 False Norvasc 5 mg tablet 7.5 mg By Mouth Once daily Hold medication if SBP <90 For HYPERTENSIVE HEART DISEASE WITHOUT HEART FAILURE 7.5 mg 07/06 Inactiv e 2023 12480 21613 1 Once daily By Mouth I11.9 False Simethicone 125 mg capsule [generic] 2 capule By Mouth Twice daily as needed For bloating/gas pain 2 capule 2023 Active 2023 50479 15098 0 Twice daily as needed By Mouth False Cepacol Sore Throat (benzocaine -menthol) 15 mg-2.6 mg lozenges 2 lozenges By Mouth Every 6 hours as needed For sore throat 2 lozenge s 2023 Active 2023 44618 27453 6 Every 6 hours as needed By Mouth False Cefepime 1 gram solution for injection [generic] 1g Intramuscular Every 12 hours 1g intramuscular ly ever 12 hours For UTI 1g 07/06 Inactiv e 2023 11627 18183 4 Every 12 hours Intram uscula r False Cefepime 1 gram solution for injection [generic] 07/06 Inactiv e 2023 99360 70120 4 Cefepime 1 gram solution for injection [generic] 1g Intramuscular Every 12 hours 1g intramuscular ly ever 12 hours For UTI Reconstitute with 2.4 ML of NSS. 1g 07/08 Inactiv e 2023 49326 88260 4 Every 12 hours Intram uscula r False Norvasc 5 mg tablet 07/06 Inactiv e 2023 14492 68270 1 I11.9 Norvasc 5 mg tablet 7.5 mg By Mouth Once daily Hold medication if SBP <90 For HYPERTENSIVE HEART DISEASE WITHOUT HEART FAILURE 7.5 mg 07/18 Inactiv e 2023 40672 88357 1 Once daily By Mouth I11.9 False Cefepime 1 gram solution for injection [generic] 07/08 Inactiv e 2023 33425 00061 4 Cefepime 1 gram solution for injection [generic] 1g Intramuscular Every 12 hours 1g intramuscular ly ever 12 hours For UTI Reconstitute with 2.4 ML of NSS. 1g 07/08 Inactiv e 2023 35568 60549 4 Every 12 hours Intram uscula r False Cefepime 1 gram solution for injection [generic] 07/08 Inactiv e 2023 74282 55922 4 Cefepime 1 gram solution for injection [generic] 1g Intramuscular Every 12 hours 1g intramuscular ly ever 12 hours For UTI Reconstitute with 2.4 ML of NSS. 1g 07/11 Inactiv e 2023 85811 14057 4 Every 12 hours Intram uscula r False Fleet Enema 19 gram-7 gram/118 mL 1 Rectal 1 time For constipation 1 07/16 Inactiv e 2024 09377 19069 6 1 time Rectal False Fleet Enema 19 gram-7 gram/118 mL 1 Rectal 1 time For constipation 1 07/17 Inactiv e 2024 81420 05949 6 1 time Rectal False Norvasc 5 mg tablet 7.5 mg By Mouth Once daily For HYPERTENSIVE HEART DISEASE WITHOUT HEART FAILURE 7.5 mg 2024 00/00 /0000 Active 2024 66128 96725 1 Once daily By Mouth I11.9 False Potassium chloride ER 20 mEq tablet,exte nded release(par t/cryst) [generic] 40 mEq By Mouth 1 time For low potassium prior to surgery 40 mEq 07/18 Inactiv e 2024 19681 26961 1 1 time By Mouth False Potassium chloride ER 20 mEq tablet,exte nded release(par t/cryst) [generic] 40 mEq By Mouth 1 time For low potassium prior to surgery 40 mEq 07/18 Inactiv e 2024 63569 11491 1 1 time By Mouth False Potassium chloride ER 20 mEq tablet,exte nded release(par t/cryst) [generic] 40 mEq By Mouth 1 time For low potassium 40 mEq 07/18 Inactiv e 2024 00745 69960 1 1 time By Mouth False Potassium chloride ER 20 mEq tablet,exte nded release(par t/cryst) [generic] 40 mEq By Mouth 1 time For low potassium 40 mEq 07/18 Inactiv e 2024 34269 42575 1 1 time By Mouth False Potassium chloride ER 20 mEq tablet,exte nded release [generic] 2 By Mouth 1 time For low potassium 2 07/19 Inactiv e 2024 46514 25912 1 1 time By Mouth False Potassium chloride ER 20 mEq tablet,exte nded release [generic] 2 capsules capsules By Mouth 1 time Please send capsule (2 capsules) For low potassium 2 capsule s 07/20 Inactiv e 2024 85987 77072 1 1 time By Mouth False Potassium chloride ER 20 mEq tablet,exte nded release(par t/cryst) [generic] TAKE (2) TABLETS (40MEQ) BY MOUTH X1 DOSE 07/20 Inactiv e 2024 12426 72274 5 Cefepime 1 gram solution for injection [generic] 1 gram Intramuscular Every 12 hours For Urinary Tract Infection 1 gram 2024 Active 2024 58486 48289 4 Every 12 hours Intram uscula r False Nystatin 100,000 unit/gram topical cream [generic] 100,000 unit Topical As Needed For DX- EXCORIATION 100,000 unit 12/12 Inactiv e 2023 51385 96842 5 Topica l False Vicks Vaporub 4.7 %-1.2 %-2.6 % topical ointment 4.7-1.2-2.6 Topical 3 times a day As Needed For DX- CONGESTION 4.7-1.2 -2.6 12/12 Inactiv e 2023 02292 64032 1 3 times a day Topica l False Ketoconazol e 2 % shampoo [generic] APPLY SHAMPOO TOPICALLY TO SCALP DURING HAIR WASHINGDX: ELVIA DERM OF SCALP For DX- ELVIA DERM OF SCALP 12/12 Inactiv e 2023 23078 54528 4 Topica l False THERA SILICONE SKIN GUARD Topical Twice daily 1 APPLICATION TOPICALLY IN THE MORNING AND AT BEDTIME TO SCROTUM For DX- PREVENTION 2023 Active 2023 Twice daily Topica l False Selenium sulfide 2.5 % lotion [generic] 2.5 % Topical EVERY MONDAY, MONDAY AND MONDAY AFTER SHOWER For DANDRUFF 2.5 % 2023 Active 2023 58664 23840 4 3 times a week Topica l False Nystatin (bulk) 100 million unit powder [generic] 100 million Topical Twice daily as needed For EXOCORATION 100 million 12/20 Inactiv e 2023 23585 51965 1 Twice daily as needed Topica l False Ketoconazol e 2 % shampoo [generic] Once daily APPLY SHAMPOO TOPICALLY TO SCALP DURING HAIR WASHING ON SHOWER DAYS- , , MON For ELVIA DERM OF SCAP 2 % 2023 Active 2023 53788 61907 4 Once daily Topica l False Nystatin 100,000 unit/gram topical cream [generic] 1 mague Topical Twice daily as needed For EXOCORATION 1 mague 06/05 Inactiv e 2023 75906 24765 5 Twice daily as needed Topica l False Nystatin 100,000 unit/gram topical powder [generic] 100,000 unit Topical Twice daily to scrotum with AM and PM care For Scrotal excoriation 100,000 unit 06/05 Inactiv e 2023 51887 90138 5 Twice daily Topica l False Problems [...] of urinary device 07/21/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 07/21 Active N31.9 [...] weight Temperature SpO2 Blood Sugar Pulse Respirations 85544 216 10636 1 254.10 NI 91422 216 88973 2 79.00 mm[Hg] - Sitting 157.00 mm[Hg] - Sitting 73 NI 254.10 NI 36.30 Tympanic 95.00 % 72.00/ min 16.00/min 29556 216 61136 4 98.80 Tympanic 25744 216 06243 2 78.00 mm[Hg] - Sitting 164.00 mm[Hg] - Sitting 18449 217 49787 3 98.20 Tympanic 64195 217 89700 5 73.00 mm[Hg] - Sitting 159.00 mm[Hg] - Sitting 36644 217 30723 9 98.40 Forehead Scan 24241 218 41564 3 97.90 Tympanic 99369 218 21186 5 77.00 mm[Hg] - Sitting 137.00 mm[Hg] - Sitting 98273 219 73492 0 97.70 Tympanic 86794 219 29500 6 97.60 Tympanic 06736 219 79497 4 76.00 mm[Hg] - Sitting 139.00 mm[Hg] - Sitting 55477 219 02999 4 97.80 Forehead Scan 20938 220 09555 9 97.90 Tympanic 27061 220 44465 9 76.00 mm[Hg] - Sitting 138.00 mm[Hg] - Sitting 88587 220 73865 6 98.10 Tympanic 45550 221 84799 5 67.00 mm[Hg] - Sitting 142.00 mm[Hg] - Sitting 13923 221 90393 8 98.20 Tympanic 25004 221 81738 0 98.30 Tympanic 90940 222 19969 7 98.20 Tympanic 95293 222 79657 8 97.90 Tympanic 21607 223 83106 3 98.20 Tympanic 08883 223 34759 3 98.00 Tympanic 95220 224 76309 0 59.00 mm[Hg] - Sitting 111.00 mm[Hg] - Sitting 98.40 Forehead Scan 95.00 % 56.00/ min 18.00/min 89451 224 94263 9 98.20 Forehead Scan 65351 224 10090 3 97.90 Tympanic 76675 225 70796 4 98.20 Tympanic 35778 225 44631 8 97.50 Forehead Scan 05917 228 66153 0 55.00 mm[Hg] - Sitting 118.00 mm[Hg] - Sitting 98.40 Tympanic 69.00/ min 70194 229 38242 8 78.00 mm[Hg] - Sitting 152.00 mm[Hg] - Sitting 93337 230 27134 0 62.00 mm[Hg] - Sitting 122.00 mm[Hg] - Sitting 31662 231 55998 7 72.00 mm[Hg] - Lying Down 140.00 mm[Hg] - Lying Down 22436 101 85239 3 97.70 Forehead Scan 74211 101 99938 1 254.10 NI 69.00/ min 86204 101 50949 9 72.00 mm[Hg] - Sitting 142.00 mm[Hg] - Sitting 97.70 Tympanic 18.00/min 91347 101 49654 3 72.00 mm[Hg] - Lying Down 142.00 mm[Hg] - Lying Down 19504 102 82726 8 68.00 mm[Hg] - Lying Down 152.00 mm[Hg] - Lying Down 32936 103 09845 5 74.00 mm[Hg] - Sitting 158.00 mm[Hg] - Sitting 43822 104 40192 9 78.00 mm[Hg] - Sitting 144.00 mm[Hg] - Sitting 31209 105 74844 5 68.00 mm[Hg] - Sitting 138.00 mm[Hg] - Sitting 08910 106 94795 1 70.00 mm[Hg] - Sitting 138.00 mm[Hg] - Sitting 44390 107 02754 1 67.00 mm[Hg] - Sitting 142.00 mm[Hg] - Sitting 44077 108 66440 0 74.00 mm[Hg] - Sitting 143.00 mm[Hg] - Sitting 81244 110 75060 6 85.00 mm[Hg] - Sitting 160.00 mm[Hg] - Sitting 97.80 Tympanic 93.00 % 76.00/ min 18.00/min 16481 111 20847 1 83.00 mm[Hg] - Sitting 129.00 mm[Hg] - Sitting 98.60 Tympanic 92.00 % 71.00/ min 18.00/min 35787 111 32211 5 60.00 mm[Hg] - Sitting 114.00 mm[Hg] [...]
--- OUTSIDE RECORDS SUMMARY | 2024-07-26 11:15 | External Medical Summary | Continuity Of Care Document ---
Author Name Unknown Address [address] [place] [address] Organization [facility] () Care Team Providers Care Model Photographers' Name Role Phone DO Pritchett Amy Primary Care Provider [phone] Allergies Allergy Reaction Start Date End Date Status AMINOGLYCOSIDES Active CIPRO Active GENTAMICIN Active NSAIDS (NON-STEROIDAL ANTI-INFLAMMATORY DRUG) 0 Active IBUPROFEN Active QUINOLONES Active VALIUM Active Medications Medication Instructions Dosage Start Date End Date Status Order Date Drug Code Frequency Route of Admin Diagnosis Code Substitutions Allowed Spikevax [id number](1 2y up)(PF) 50 mcg/0.5 mL intramuscul ar suspension [COVID unh85-42(12 up)(andu)(P F)] 0.5mL Intramuscular 1 time Monitory 15 Minutes post injection for adverse effects; record site/temp For COVID 19 PREVENTION 0.5mL 01/02 Inactiv e 2023 04671 26802 4 1 time Intram uscula r False [facility] - Nurse initials indicate verificatio n that [id number] vaccine was administere d by [facility] jon 1 Intramuscular 1 time ( Indicate vaccine type) For vaccine 1 05/03 Inactiv e 2023 1 time Intram uscula r False Lisinopril 40 mg tablet [generic] TAKE ONE (1) TABLET BY MOUTH IN THE MORNING. For DX- HTN 1 2023 Active 2023 79172 90979 1 Once daily By Mouth False Tizanidine 2 mg tablet [generic] TAKE ONE (1) TABLET BY MOUTH ONCE DAILY For MUSCLE SPASM 1 2023 Active 2023 99475 28725 0 Once daily By Mouth M62.838 False Tamsulosin 0.4 mg capsule [generic] TAKE (1) CAPSULE BY MOUTH AT BEDTIME For SPASMS 1 2023 Active 2023 01649 98844 0 Once daily By Mouth False Aspirin 81 mg tablet Once daily 1 TABLET BY MOUTH IN THE MORNING For DX- CAD DO NOT CRUSH, CHEW OR BREAK 81 mg 06/12 Inactiv e 2023 Once daily By Mouth False Baclofen 20 mg tablet [generic] 20 mg By Mouth 4 times a day For DX- MUSCLE SPASMS 20 mg 12/12 Inactiv e 2023 38131 06308 1 4 times a day By Mouth False Calcium citrate 250 mg tablet Once daily 4 TABLET BY MOUTH For DX- SUPPLEMENT 250 mg calci 12/12 Inactiv e 2023 Once daily By Mouth False Co Q-10 100 mg capsule 100 mg By Mouth Once daily For DX- SUPPLEMENT 100 mg 06/20 Inactiv e 2023 47760 16834 5 Once daily By Mouth False Furosemide 20 mg tablet [generic] 20 mg By Mouth Once daily For DX-CHF 20 mg 12/12 Inactiv e 2023 23218 98137 0 Once daily By Mouth False Gabapentin 300 mg capsule [generic] 300 mg By Mouth 3 times a day For DX- NEUROPATHY 300 mg 12/12 Inactiv e 2023 32486 89189 4 3 times a day By Mouth False Loratadine 10 mg tablet [generic] 10 mg By Mouth Once daily For DX- ALLERGIES 10 mg 2023 Active 2023 61339 11147 1 Once daily By Mouth False Miralax 17 gram/dose oral powder 17 gram/dose By Mouth IN THE MORNING Mix 1 TABLESPOON IN 8 OZ OF FLUID HOLD FOR LOOSE STOOLS For DX- CONSTIPATION 17 gram/do se 12/12 Inactiv e 2023 32674 41120 0 Once daily By Mouth False Paroxetine 30 mg tablet [generic] 30 mg By Mouth Once daily For DX- DEPRESSION 30 mg 2023 00/00 /0000 Active 2023 71975 97907 3 Once daily By Mouth False Potassium citrate ER 15 mEq (1,620 mg) tablet,exte nded release [generic] 15 mEq By Mouth 3 times a day For DX- SUPPLEMENT/DI URETIC USE/ HYPOCITRAUIRA DO NOT CRUSH 15 mEq 12/12 Inactiv e 2023 67638 87863 1 3 times a day By Mouth [...] For DX- DANDRUFF 12/12 Inactiv e 2023 92449 85446 4 3 times a week Topica l False Acetaminoph en 325 mg tablet [generic] TAKE 2 TABS (650MG) BY MOUTH EVERY 4 HOURS NEEDED FOR TEMP >100 NOT TO EXCEED 3GM/24HRS TAKE 2 TABS (650MG) BY MOUTH EVERY 4 HOURS NEEDED FOR TEMP >100 NOT TO EXCEED 3GM/24HRS For DX-FEVER 2 12/12 Inactiv e 2023 10349 41858 0 By Mouth False MILK OF MAGNESIA ADMINISTER 30 ML BY MOUTH ONCE DAILY NEEDED FOR CONSTIPATION X3 DAYS WITH NO BM. For DX- CONSTIPATION 30ML 12/12 Inactiv e 2023 09265 35818 9 By Mouth False Enema Disposable 19 gram-7 gram/118 mL ADMINISTER ONE ENEMA RECTALLY ONCE DAILY NEEDED FOR CONSTIPATION ON DAY 6 OF NO BM For DX- CONSTIPATION 12/12 Inactiv e 2023 49772 12812 1 Rectal False TUMS EXTRA STR 750MG TAKE (1) TABLET BY MOUTH THREE TIMES DAILY NEEDED FOR INDIGESTION For DX- INDIGESTION 1 12/12 Inactiv e 2023 73350 68082 8 By Mouth False Vitamin D3 25 [...] CONSTIPATION 10 mg 12/12 Inactiv e 2023 69625 15182 1 Rectal False Melatonin 3 mg tablet [generic] 3 mg By Mouth As Needed For DX-INSOMMIA 3 mg 12/12 Inactiv e 2023 21618 60391 8 By Mouth False Hydrocortis one 1 % topical cream [generic] 1 % Topical As Needed For DX- PAIN 1 % 12/12 Inactiv e 2023 28888 28876 1 Topica l False HYDROCORTIS ONE/PARMOXI NE [...] 5-10 50 mg 12/20 Inactiv e 2023 70665 01479 0 Every 4 hours as needed By Mouth False Tylenol 325 mg tablet 325 mg By Mouth Every 4 hours as needed For DX- PAIN PRN FOR MILD PAIN, DO NOT EXCEED 3000MG APAP/24 HOURS 325 mg 12/20 Inactiv e 2023 29218 01325 0 Every 4 hours as needed By Mouth False Baclofen 20 mg tablet [generic] 20 mg By Mouth 4 times a day For MUSCLE SPASMS 20 mg 12/20 Inactiv e 2023 15845 14575 1 4 times a day By Mouth False Calcium citrate 250 mg tablet [generic] Once daily TAKE 4 TABLETS (1000MG) BY MOUTH For SUPPLEMENT 1000 MG 06/26 Inactiv e 2023 21528 88238 6 Once daily By Mouth False Dulcolax (bisacodyl) 10 mg rectal suppository 10 mg Rectal Once daily For CONSTIPATION *MAY HOLD FOR LOOSE STOOLS* 10 mg 2023 Active 2023 18615 15429 1 Once daily Rectal False Gabapentin 300 mg capsule [generic] 300 mg By Mouth 3 times a day For NEUROPATHY 300 mg 2023 Active 2023 03650 76320 4 3 times a day By Mouth False Potassium citrate ER 15 mEq (1,620 mg) tablet,exte nded release [generic] 15 mEq By Mouth 3 times a day For SUPPLEMENT/DI URETIC USE/HYPOCITRA URIA 15 mEq 06/11 Inactiv e 2023 36501 76228 1 3 times a day By Mouth False Potassium chloride ER 20 mEq tablet,exte nded release [generic] 20 mEq By Mouth 3 times a day *DO NOT CRUSH, CHEW OR BREAK* For SUPPLEMENT 20 mEq 12/18 Inactiv e 2023 90144 77793 1 3 times a day By Mouth False Tizanidine 4 mg tablet [generic] 4 mg By Mouth Once daily For MUSCLE SPASMS 4 mg 2023 Active 2023 79403 08431 0 Once daily By Mouth False Tylenol 325 mg tablet 2 tabs By Mouth Every 4 hours as needed For Fever >100 DO NOT EXCEED 3000 MG APAP/24 Hours 2 tabs 12/20 Inactiv e 2023 36916 66629 0 Every 4 hours as needed By Mouth False Dulcolax (bisacodyl) 10 mg rectal suppository Daily as needed For Constipation 1 sup 12/20 Inactiv e 2023 98822 09429 1 Daily as needed Rectal False Fleet Enema 19 gram-7 gram/118 mL 1 Rectal Daily as neededFor Constipation 1 12/20 Inactiv e 2023 54391 17836 6 Daily as needed Rectal False Milk of Magnesia 400 mg/5 mL oral suspension [Magnesium hydroxide] PRN 30ml By Mouth Daily as needed for constipation one time daily if no BM, on day 4 of no BM (PRN refer to instructions) For Constipation For Constipatioin 30ml 12/20 Inactiv e 2023 45764 13965 6 1 time By Mouth False Melatonin 3 mg tablet [generic] 3 mg By Mouth Once daily As Needed For INSOMNIA 3 mg 12/20 Inactiv e 2023 25642 36157 8 Once daily By Mouth False Hydrocortis one 1 % topical cream [generic] 1 % Rectal Four times daily as needed For hemorroid pain 1 % 12/20 Inactiv e 2023 24282 21584 1 Four times daily as needed Rectal False X-STGH ANTACID 750MG CHEW TAKE (1) TABLET BY MOUTH THREE TIMES DAILY NEEDED FOR INDIGESTION 12/20 Inactiv e 2023 32284 49804 4 Three times daily as needed Saline Mist 0.65 % nasal spray aerosol 0.65 % Nares Four times daily as needed For DRYNESS 0.65 % 12/20 Inactiv e 2023 11925 52518 8 Four times daily as needed Nares False Vicks Vaporub 4.7 %-1.2 %-2.6 % topical ointment Apply topically to chest Three times daily as needed For CONGESTION 4.7-1.2 -2.6 12/20 Inactiv e 2023 36115 47510 1 Three times daily as needed Topica l False VITAMIN D3 2000U CAP TAKE ONE (1) CAPSULE BY MOUTH DAILY* DO NOT CRUSH, CHEW OR BREAK* For Supplement 1 capsule 12/19 Inactiv e 2023 93957 01574 0 Once daily By Mouth False Potassium chloride ER 20 mEq tablet,exte nded release(par t/cryst) [generic] TAKE (1) TABLET BY MOUTH THREE TIMES DAILY (MORNING, AFTERNOON, EVENING)*DO NOT CRUSH, CHEW, OR BREAK* For SUPPLEMENT 20 MEQ 06/11 Inactiv e 2023 56999 52868 5 3 times a day By Mouth False Aspirin 81 mg tablet,camron yed release [generic] TAKE ONE (1) TABLET BY MOUTH ONCE DAILY*DO NOT CRUSH, CHEW OR BREAK* For CAD 81 MG 12/22 Inactiv e 2023 76320 45670 0 Once daily By Mouth False Furosemide 20 mg tablet [generic] TAKE 1 AND 1/2 TABLETS (30MG) BY MOUTH ONCE DAILY For CHF 30mg 2023 Active 2023 07083 16787 1 Once daily By Mouth False Polyethylen e glycol 3350 17 gram/dose oral powder [generic] MIX 17 GRAMS (1 CAPFUL) IN 60Z OF LIQUID AND DRINK BY MOUTH ONCE DAILY *HOLD FOR LOOSE STOOLS* For constipation 17 g 2023 Active 2023 65866 20937 3 Once daily By Mouth False Vitamin D3 50 mcg (2,000 unit) capsule Once daily TAKE ONE (1) CAPSULE BY MOUTH DAILY* DO NOT CRUSH, CHEW OR BREAK* For Supplement 1 capsule 02/07 Inactiv e 2023 73406 18014 2 Once daily By Mouth False Fleet Enema 19 gram-7 gram/118 mL 1 Rectal Daily as neededFor Constipation 1 2023 0000 Active 2023 77522 44484 6 Daily as needed Rectal False Tums E-X 300 mg (as calcium carbonate 750 mg) chewable tablet 1 tab By Mouth TAKE (1) TABLET BY MOUTH THREE TIMES DAILY NEEDED FOR INDIGESTION 1 tab 202300 /0000 Active 2023 43654 68679 1 Three times daily as needed By Mouth False Tylenol 325 mg tablet 2 tabs By Mouth Every 4 hours as needed For Fever >100 DO NOT EXCEED 3000 MG APAP/24 Hours 2 tabs 202300 /0000 Active 2023 29358 29333 0 Every 4 hours as needed By Mouth False Vicks Vaporub 4.7 %-1.2 %-2.6 % topical ointment Apply topically to chest Three times daily as needed For CONGESTION topical 202300 Active 2023 32407 26336 1 Three times daily as needed Topica l False Tylenol 325 mg tablet 2 tabs By Mouth Every 4 hours as needed For DX- PAIN PRN FOR MILD PAIN, DO NOT EXCEED 3000MG APAP/24 HOURS 2 tabs 202300 Active 2023 89829 81309 0 Every 4 hours as needed By Mouth False Tramadol 50 mg tablet [generic] 1 tab By Mouth Every 4 hours as needed For DX- PAIN 5-10 1 tab 03/10 Inactiv e 2023 38747 71121 0 Every 4 hours as needed By Mouth False Saline Mist 0.65 % nasal spray aerosol 2 sprays Nares Four times daily as needed For DRYNESS 2 sprays 202300 / Active 2023 44121 61623 8 Four times daily as needed Nares False Dulcolax (bisacodyl) 10 mg rectal suppository Daily as needed For Constipation 1 sup 202300 / Active 2023 69444 96816 1 Daily as needed Rectal False Hydrocortis one-pramoxi ne 1 %-1 % rectal cream [generic] 1 mague Rectal Four times daily as needed For hemorroid pain 1 mague 202300 /0000 Active 2023 28804 19725 4 Four times daily as needed Rectal False Melatonin 3 mg tablet [generic] 1 tab By Mouth At bedtime as needed For INSOMNIA 1 tab 12/24 Inactiv e 2023 09978 92330 8 At bedtime as needed By Mouth False Milk of Magnesia 400 mg/5 mL oral suspension 30ml By Mouth Daily as needed Daily as needed for constipation one time daily if no BM, on day 4 of no BM (PRN refer to instructions) For Constipation For Constipatioin 30ml 2023 Active 2023 20545 27650 2 Daily as needed By Mouth False Baclofen 20 mg tablet [generic] 20 mg By Mouth 4 times a day For MUSCLE SPASMS 20 mg 2023 Active 2023 74453 25200 1 4 times a day By Mouth False Melatonin 3 mg tablet [generic] 1 tab By Mouth At bedtime as needed For INSOMNIA 1 tab 2023 Active 2023 15859 68566 8 At bedtime as needed By Mouth False Bactrim DS 800 mg-160 mg tablet 1 tab By Mouth Twice daily For URINARY TRACT INFECTION, SITE NOT SPECIFIED 1 tab 01/06 Inactiv e 2023 63393 68603 1 Twice daily By Mouth N39.0 False Cefdinir 300 mg capsule [generic] 300 mg By Mouth Twice daily For UTI 300 mg 01/07 Inactiv e 2023 66156 41204 0 Twice daily By Mouth False Cefdinir 300 mg capsule [generic] 300 mg By Mouth Twice daily For UTI 300 mg 01/17 Inactiv e 2023 34892 67550 0 Twice daily By Mouth False Zyrtec 10 mg tablet 10 mg By Mouth Once daily For sinus congestion 10 mg 01/22 Inactiv e 2023 25951 75316 0 Once daily By Mouth False Tobramycin 0.3 %-dexametha sone 0.1 % eye drops,suspe nsion [generic] 0.3-0.1 % Left Eye 4 times a day For eye infection 0.3-0.1 % 02/05 Inactiv e 2023 43953 32824 5 4 times a day Left Eye False Fluconazole 150 mg tablet [generic] 150 mg By Mouth 1 time For yeast infection 150 mg 02/15 Inactiv e 2023 34061 66798 2 1 time By Mouth False Tramadol 50 mg tablet [generic] 1 tab By Mouth Every 4 hours as needed For DX- PAIN 5-10 1 tab 2023 00/00 /0000 Active 2023 92722 99781 0 Every 4 hours as needed By Mouth False Tobramycin 0.3 %-dexametha sone 0.1 % eye drops,suspe nsion [generic] 1 drop Left Eye 4 times a day For Inflammation of left eye 1 drop 05/08 Inactiv e 2023 99468 15977 5 4 times a day Left Eye False Voltaren Arthritis Pain 1 % topical gel 2 gm Topical Twice daily to rigth shoulder for 2 weeks For pain 2 gm 05/08 Inactiv e 2023 59254 02245 1 Twice daily Topica l False Chlorthalid one 25 mg tablet [generic] 12.5mg By Mouth Once daily For HTN 12.5mg 05/06 Inactiv e 2023 24651 73263 0 Once daily By Mouth False Chlorthalid one 25 mg tablet [generic] 12.5mg By Mouth Once daily For HTN 12.5mg 05/07 Inactiv e 2023 07960 61888 0 Once daily By Mouth False Chlorthalid one 25 mg tablet [generic] 05/07 Inactiv e 2023 15267 10456 0 Chlorthalid one 25 mg tablet [generic] 12.5mg By Mouth Once daily For HTN 12.5mg 06/26 Inactiv e 2023 42375 67004 0 Once daily By Mouth False Norvasc 5 mg tablet 5mg By Mouth Once daily, hold medication if systolic is less than 90 For HYPERTENSIVE HEART DISEASE WITHOUT HEART FAILURE 5mg 06/03 Inactiv e 2023 98577 33178 1 Once daily By Mouth I11.9 False Norvasc 5 mg tablet 5mg By Mouth Once daily, hold medication if systolic is less than 90 For HYPERTENSIVE HEART DISEASE WITHOUT HEART FAILURE 5mg 06/03 Inactiv e 2023 12073 62297 1 Once daily By Mouth I11.9 False Norvasc 5 mg tablet 5mg By Mouth Once daily, hold medication if systolic is less than 90 For HYPERTENSIVE HEART DISEASE WITHOUT HEART FAILURE 5mg 06/26 Inactiv e 2023 78329 49154 1 Once daily By Mouth I11.9 False [...] 10 mg 2023 00/00 /0000 Active 2023 25470 50045 1 Once daily By Mouth False DISCONTINUE [...] CAD 81 mg 06/14 Inactiv e 2023 12035 79193 9 Once daily By Mouth False Aspirin 81 mg tablet,camron yed release [generic] 06/14 Inactiv e 2023 26467 52044 9 Aspirin 81 mg tablet,camron yed release [generic] 81 mg By Mouth Once daily Do not crush, chew, or break For CAD 81 mg 06/154 Inactiv e 2023 27615 71328 9 Once daily By Mouth False Cefpodoxime 200 mg tablet [generic] 200mg By Mouth Twice daily For UTI 200mg 07/04 Inactiv e 2023 23775 69530 0 Twice daily By Mouth False Calcium citrate 250 mg tablet [generic] 06/26 Inactiv e 2023 29867 07554 6 Calcium citrate 250 mg tablet [generic] Once daily TAKE 4 TABLETS (1000MG) BY MOUTH For SUPPLEMENT 500 MG 2023 Active 2023 73312 77631 6 Once daily By Mouth False Norvasc 5 mg tablet 7.5 mg By Mouth Once daily Hold medication if SBP <90 For HYPERTENSIVE HEART DISEASE WITHOUT HEART FAILURE 7.5 mg 06/30 Inactiv e 2023 00511 07046 1 Once daily By Mouth I11.9 False Norvasc 5 mg tablet 7.5 mg By Mouth Once daily Hold medication if SBP <90 For HYPERTENSIVE HEART DISEASE WITHOUT HEART FAILURE 7.5 mg 07/06 Inactiv e 2023 14429 82739 1 Once daily By Mouth I11.9 False Simethicone 125 mg capsule [generic] 2 capule By Mouth Twice daily as needed For bloating/gas pain 2 capule 2023 Active 2023 38916 59700 0 Twice daily as needed By Mouth False Cepacol Sore Throat (benzocaine -menthol) 15 mg-2.6 mg lozenges 2 lozenges By Mouth Every 6 hours as needed For sore throat 2 lozenge s 2023 Active 2023 12215 16214 6 Every 6 hours as needed By Mouth False Cefepime 1 gram solution for injection [generic] 1g Intramuscular Every 12 hours 1g intramuscular ly ever 12 hours For UTI 1g 07/06 Inactiv e 2023 25485 56895 4 Every 12 hours Intram uscula r False Cefepime 1 gram solution for injection [generic] 07/06 Inactiv e 2023 94655 96634 4 Cefepime 1 gram solution for injection [generic] 1g Intramuscular Every 12 hours 1g intramuscular ly ever 12 hours For UTI Reconstitute with 2.4 ML of NSS. 1g 07/08 Inactiv e 2023 36917 91653 4 Every 12 hours Intram uscula r False Norvasc 5 mg tablet 07/06 Inactiv e 2023 06265 11319 1 I11.9 Norvasc 5 mg tablet 7.5 mg By Mouth Once daily Hold medication if SBP <90 For HYPERTENSIVE HEART DISEASE WITHOUT HEART FAILURE 7.5 mg 07/18 Inactiv e 2023 34587 73574 1 Once daily By Mouth I11.9 False Cefepime 1 gram solution for injection [generic] 07/08 Inactiv e 2023 93435 82768 4 Cefepime 1 gram solution for injection [generic] 1g Intramuscular Every 12 hours 1g intramuscular ly ever 12 hours For UTI Reconstitute with 2.4 ML of NSS. 1g 07/08 Inactiv e 2023 77982 97662 4 Every 12 hours Intram uscula r False Cefepime 1 gram solution for injection [generic] 07/08 Inactiv e 2023 44805 94999 4 Cefepime 1 gram solution for injection [generic] 1g Intramuscular Every 12 hours 1g intramuscular ly ever 12 hours For UTI Reconstitute with 2.4 ML of NSS. 1g 07/11 Inactiv e 2023 50024 38937 4 Every 12 hours Intram uscula r False Fleet Enema 19 gram-7 gram/118 mL 1 Rectal 1 time For constipation 1 07/16 Inactiv e 2024 77493 80844 6 1 time Rectal False Fleet Enema 19 gram-7 gram/118 mL 1 Rectal 1 time For constipation 1 07/17 Inactiv e 2024 20931 21716 6 1 time Rectal False Norvasc 5 mg tablet 7.5 mg By Mouth Once daily For HYPERTENSIVE HEART DISEASE WITHOUT HEART FAILURE 7.5 mg 2024 00/00 /0000 Active 2024 31840 29524 1 Once daily By Mouth I11.9 False Potassium chloride ER 20 mEq tablet,exte nded release(par t/cryst) [generic] 40 mEq By Mouth 1 time For low potassium prior to surgery 40 mEq 07/18 Inactiv e 2024 85734 87272 1 1 time By Mouth False Potassium chloride ER 20 mEq tablet,exte nded release(par t/cryst) [generic] 40 mEq By Mouth 1 time For low potassium prior to surgery 40 mEq 07/18 Inactiv e 2024 75830 86747 1 1 time By Mouth False Potassium chloride ER 20 mEq tablet,exte nded release(par t/cryst) [generic] 40 mEq By Mouth 1 time For low potassium 40 mEq 07/18 Inactiv e 2024 72893 25434 1 1 time By Mouth False Potassium chloride ER 20 mEq tablet,exte nded release(par t/cryst) [generic] 40 mEq By Mouth 1 time For low potassium 40 mEq 07/18 Inactiv e 2024 09142 62513 1 1 time By Mouth False Potassium chloride ER 20 mEq tablet,exte nded release [generic] 2 By Mouth 1 time For low potassium 2 07/19 Inactiv e 2024 29371 77308 1 1 time By Mouth False Potassium chloride ER 20 mEq tablet,exte nded release [generic] 2 capsules capsules By Mouth 1 time Please send capsule (2 capsules) For low potassium 2 capsule s 07/20 Inactiv e 2024 22641 81942 1 1 time By Mouth False Nystatin 100,000 unit/gram topical cream [generic] 100,000 unit Topical As Needed For DX- EXCORIATION 100,000 unit 12/12 Inactiv e 2023 34751 10315 5 Topica l False Vicks Vaporub 4.7 %-1.2 %-2.6 % topical ointment 4.7-1.2-2.6 Topical 3 times a day As Needed For DX- CONGESTION 4.7-1.2 -2.6 12/12 Inactiv e 2023 84339 30970 1 3 times a day Topica l False Ketoconazol e 2 % shampoo [generic] APPLY SHAMPOO TOPICALLY TO SCALP DURING HAIR WASHINGDX: ELVIA DERM OF SCALP For DX- ELVIA DERM OF SCALP 12/12 Inactiv e 2023 71396 11145 4 Topica l False THERA SILICONE SKIN GUARD Topical Twice daily 1 APPLICATION TOPICALLY IN THE MORNING AND AT BEDTIME TO SCROTUM For DX- PREVENTION 202300 Active 2023 Twice daily Topica l False Selenium sulfide 2.5 % lotion [generic] 2.5 % Topical EVERY MONDAY, MONDAY AND MONDAY AFTER SHOWER For DANDRUFF 2.5 % 202300 Active 2023 25975 37488 4 3 times a week Topica l False Nystatin (bulk) 100 million unit powder [generic] 100 million Topical Twice daily as needed For EXOCORATION 100 million 12/20 Inactiv e 2023 36542 08813 1 Twice daily as needed Topica l False Ketoconazol e 2 % shampoo [generic] Once daily APPLY SHAMPOO TOPICALLY TO SCALP DURING HAIR WASHING ON SHOWER DAYS- , , MON For ELVIA DERM OF SCAP 2 % 202300 /0000 Active 2023 55383 63326 4 Once daily Topica l False Nystatin 100,000 unit/gram topical cream [generic] 1 mague Topical Twice daily as needed For EXOCORATION 1 mague 06/05 Inactiv e 2023 74071 86287 5 Twice daily as needed Topica l False Nystatin 100,000 unit/gram topical powder [generic] 100,000 unit Topical Twice daily to scrotum with AM and PM care For Scrotal excoriation 100,000 unit 06/05 Inactiv e 2023 88810 55213 5 Twice daily Topica l False Problems [...] of urinary device 07/21/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 07/21 Active N31.9 [...] weight Temperature SpO2 Blood Sugar Pulse Respirations 09378 216 90788 1 254.10 [place] [address]33 216 40824 2 79.00 mm[Hg] - Sitting 157.00 mm[Hg] - Sitting 73 NI 254.10 NI 36.30 Tympanic 95.00 % 72.00/ min 16.00/min 00094 216 59480 4 98.80 Tympanic 74308 216 10586 2 78.00 mm[Hg] - Sitting 164.00 mm[Hg] - Sitting 78175 217 03032 3 98.20 Tympanic 15506 217 54179 5 73.00 mm[Hg] - Sitting 159.00 mm[Hg] - Sitting 54905 217 87040 9 98.40 Forehead Scan 04944 218 95285 3 97.90 Tympanic 70947 218 01517 5 77.00 mm[Hg] - Sitting 137.00 mm[Hg] - Sitting 44102 219 62207 0 97.70 Tympanic 80818 219 34671 6 97.60 Tympanic 68364 219 80018 4 76.00 mm[Hg] - Sitting 139.00 mm[Hg] - Sitting 07709 219 66472 4 97.80 Forehead Scan 28298 220 98558 9 97.90 Tympanic 62386 220 26188 9 76.00 mm[Hg] - Sitting 138.00 mm[Hg] - Sitting 43368 220 74626 6 98.10 Tympanic 56732 221 45861 5 67.00 mm[Hg] - Sitting 142.00 mm[Hg] - Sitting 72573 221 23727 8 98.20 Tympanic 72519 221 85437 0 98.30 Tympanic 75951 222 78014 7 98.20 Tympanic 67715 222 02107 8 97.90 Tympanic 69619 223 56166 3 98.20 Tympanic 50281 223 81387 3 98.00 Tympanic 87405 224 43452 0 59.00 mm[Hg] - Sitting 111.00 mm[Hg] - Sitting 98.40 Forehead Scan 95.00 % 56.00/ min 18.00/min 81647 224 10534 9 98.20 Forehead Scan 77189 224 21839 3 97.90 Tympanic 88898 225 87389 4 98.20 Tympanic 05161 225 73058 8 97.50 Forehead Scan 29289 228 11935 0 55.00 mm[Hg] - Sitting 118.00 mm[Hg] - Sitting 98.40 Tympanic 69.00/ min 32637 229 69641 8 78.00 mm[Hg] - Sitting 152.00 mm[Hg] - Sitting 44242 230 28152 0 62.00 mm[Hg] - Sitting 122.00 mm[Hg] - Sitting 70170 231 10867 7 72.00 mm[Hg] - Lying Down 140.00 mm[Hg] - Lying Down 06668 101 99944 3 97.70 Forehead Scan 73888 101 93710 1 254.10 NI 69.00/ min 63144 101 16125 9 72.00 mm[Hg] - Sitting 142.00 mm[Hg] - Sitting 97.70 Tympanic 18.00/min 88028 101 04013 3 72.00 mm[Hg] - Lying Down 142.00 mm[Hg] - Lying Down 32466 102 89793 8 68.00 mm[Hg] - Lying Down 152.00 mm[Hg] - Lying Down 40687 103 83591 5 74.00 mm[Hg] - Sitting 158.00 mm[Hg] - Sitting 93835 104 14192 9 78.00 mm[Hg] - Sitting 144.00 mm[Hg] - Sitting 73481 105 56791 5 68.00 mm[Hg] - Sitting 138.00 mm[Hg] - Sitting 67428 106 51004 1 70.00 mm[Hg] - Sitting 138.00 mm[Hg] - Sitting 46884 107 33089 1 67.00 mm[Hg] - Sitting 142.00 mm[Hg] - Sitting 95715 108 48088 0 74.00 mm[Hg] - Sitting 143.00 mm[Hg] - Sitting 50312 110 30461 6 85.00 mm[Hg] - Sitting 160.00 mm[Hg] - Sitting 97.80 Tympanic 93.00 % 76.00/ min 18.00/min Immunizations Vaccine Date [...]
--- OUTSIDE RECORDS SUMMARY | 2024-07-26 11:15 | External Medical Summary | Continuity Of Care Document ---
Author Name Unknown Address [address] [place] [address] Organization [facility] () Care Team Providers Care Kelp Gatherer Name Role Phone DO Pritchett Amy Primary Care Provider [phone] Allergies Allergy Reaction Start Date End Date Status AMINOGLYCOSIDES Active CIPRO Active GENTAMICIN Active NSAIDS (NON-STEROIDAL ANTI-INFLAMMATORY DRUG) 0 Active IBUPROFEN Active QUINOLONES Active VALIUM Active Medications Medication Instructions Dosage Start Date End Date Status Order Date Drug Code Frequency Route of Admin Diagnosis Code Substitutions Allowed Spikevax [id number](1 2y up)(PF) 50 mcg/0.5 mL intramuscul ar suspension [COVID bur68-49(12 up)(andu)(P F)] 0.5mL Intramuscular 1 time Monitory 15 Minutes post injection for adverse effects; record site/temp For COVID 19 PREVENTION 0.5mL 01/02 Inactiv e 2023 79489 59218 4 1 time Intram uscula r False [facility] - Nurse initials indicate verificatio n that [id number] vaccine was administere d by [facility] Representat jon 1 Intramuscular 1 time ( Indicate vaccine type) For vaccine 1 05/03 Inactiv e 2023 1 time Intram uscula r False Lisinopril 40 mg tablet [generic] TAKE ONE (1) TABLET BY MOUTH IN THE MORNING. For DX- HTN 1 2023 Active 2023 07233 66066 1 Once daily By Mouth False Tizanidine 2 mg tablet [generic] TAKE ONE (1) TABLET BY MOUTH ONCE DAILY For MUSCLE SPASM 1 2023 Active 2023 98707 47425 0 Once daily By Mouth M62.838 False Tamsulosin 0.4 mg capsule [generic] TAKE (1) CAPSULE BY MOUTH AT BEDTIME For SPASMS 1 2023 Active 2023 55589 70359 0 Once daily By Mouth False Aspirin 81 mg tablet Once daily 1 TABLET BY MOUTH IN THE MORNING For DX- CAD DO NOT CRUSH, CHEW OR BREAK 81 mg 06/12 Inactiv e 2023 Once daily By Mouth False Baclofen 20 mg tablet [generic] 20 mg By Mouth 4 times a day For DX- MUSCLE SPASMS 20 mg 12/12 Inactiv e 2023 84660 90479 1 4 times a day By Mouth False Calcium citrate 250 mg tablet Once daily 4 TABLET BY MOUTH For DX- SUPPLEMENT 250 mg calci 12/12 Inactiv e 2023 Once daily By Mouth False Co Q-10 100 mg capsule 100 mg By Mouth Once daily For DX- SUPPLEMENT 100 mg 06/20 Inactiv e 2023 53302 61809 5 Once daily By Mouth False Furosemide 20 mg tablet [generic] 20 mg By Mouth Once daily For DX-CHF 20 mg 12/12 Inactiv e 2023 74888 98980 0 Once daily By Mouth False Gabapentin 300 mg capsule [generic] 300 mg By Mouth 3 times a day For DX- NEUROPATHY 300 mg 12/12 Inactiv e 2023 48188 70628 4 3 times a day By Mouth False Loratadine 10 mg tablet [generic] 10 mg By Mouth Once daily For DX- ALLERGIES 10 mg 2023 Active 2023 38290 10497 1 Once daily By Mouth False Miralax 17 gram/dose oral powder 17 gram/dose By Mouth IN THE MORNING Mix 1 TABLESPOON IN 8 OZ OF FLUID HOLD FOR LOOSE STOOLS For DX- CONSTIPATION 17 gram/do se 12/12 Inactiv e 2023 90911 69459 0 Once daily By Mouth False Paroxetine 30 mg tablet [generic] 30 mg By Mouth Once daily For DX- DEPRESSION 30 mg 2023 00/00 /0000 Active 2023 10510 45215 3 Once daily By Mouth False Potassium citrate ER 15 mEq (1,620 mg) tablet,exte nded release [generic] 15 mEq By Mouth 3 times a day For DX- SUPPLEMENT/DI URETIC USE/ HYPOCITRAUIRA DO NOT CRUSH 15 mEq 12/12 Inactiv e 2023 68024 96274 1 3 times a day By Mouth [...] For DX- DANDRUFF 12/12 Inactiv e 2023 51308 98912 4 3 times a week Topica l False Acetaminoph en 325 mg tablet [generic] TAKE 2 TABS (650MG) BY MOUTH EVERY 4 HOURS NEEDED FOR TEMP >100 NOT TO EXCEED 3GM/24HRS TAKE 2 TABS (650MG) BY MOUTH EVERY 4 HOURS NEEDED FOR TEMP >100 NOT TO EXCEED 3GM/24HRS For DX-FEVER 2 12/12 Inactiv e 2023 22969 00274 0 By Mouth False MILK OF MAGNESIA ADMINISTER 30 ML BY MOUTH ONCE DAILY NEEDED FOR CONSTIPATION X3 DAYS WITH NO BM. For DX- CONSTIPATION 30ML 12/12 Inactiv e 2023 76989 21976 9 By Mouth False Enema Disposable 19 gram-7 gram/118 mL ADMINISTER ONE ENEMA RECTALLY ONCE DAILY NEEDED FOR CONSTIPATION ON DAY 6 OF NO BM For DX- CONSTIPATION 12/12 Inactiv e 2023 23756 94255 1 Rectal False TUMS EXTRA STR 750MG TAKE (1) TABLET BY MOUTH THREE TIMES DAILY NEEDED FOR INDIGESTION For DX- INDIGESTION 1 12/12 Inactiv e 2023 81686 03808 8 By Mouth False Vitamin D3 25 [...] CONSTIPATION 10 mg 12/12 Inactiv e 2023 96338 41593 1 Rectal False Melatonin 3 mg tablet [generic] 3 mg By Mouth As Needed For DX-INSOMMIA 3 mg 12/12 Inactiv e 2023 93494 14695 8 By Mouth False Hydrocortis one 1 % topical cream [generic] 1 % Topical As Needed For DX- PAIN 1 % 12/12 Inactiv e 2023 10435 67523 1 Topica l False HYDROCORTIS ONE/PARMOXI NE [...] 5-10 50 mg 12/20 Inactiv e 2023 92120 45029 0 Every 4 hours as needed By Mouth False Tylenol 325 mg tablet 325 mg By Mouth Every 4 hours as needed For DX- PAIN PRN FOR MILD PAIN, DO NOT EXCEED 3000MG APAP/24 HOURS 325 mg 12/20 Inactiv e 2023 17889 62011 0 Every 4 hours as needed By Mouth False Baclofen 20 mg tablet [generic] 20 mg By Mouth 4 times a day For MUSCLE SPASMS 20 mg 12/20 Inactiv e 2023 90292 35904 1 4 times a day By Mouth False Calcium citrate 250 mg tablet [generic] Once daily TAKE 4 TABLETS (1000MG) BY MOUTH For SUPPLEMENT 1000 MG 06/26 Inactiv e 2023 78567 79289 6 Once daily By Mouth False Dulcolax (bisacodyl) 10 mg rectal suppository 10 mg Rectal Once daily For CONSTIPATION *MAY HOLD FOR LOOSE STOOLS* 10 mg 2023 Active 2023 70888 07259 1 Once daily Rectal False Gabapentin 300 mg capsule [generic] 300 mg By Mouth 3 times a day For NEUROPATHY 300 mg 2023 Active 2023 14752 61736 4 3 times a day By Mouth False Potassium citrate ER 15 mEq (1,620 mg) tablet,exte nded release [generic] 15 mEq By Mouth 3 times a day For SUPPLEMENT/DI URETIC USE/HYPOCITRA URIA 15 mEq 06/11 Inactiv e 2023 67829 62248 1 3 times a day By Mouth False Potassium chloride ER 20 mEq tablet,exte nded release [generic] 20 mEq By Mouth 3 times a day *DO NOT CRUSH, CHEW OR BREAK* For SUPPLEMENT 20 mEq 12/18 Inactiv e 2023 90279 54533 1 3 times a day By Mouth False Tizanidine 4 mg tablet [generic] 4 mg By Mouth Once daily For MUSCLE SPASMS 4 mg 2023 Active 2023 65578 34885 0 Once daily By Mouth False Tylenol 325 mg tablet 2 tabs By Mouth Every 4 hours as needed For Fever >100 DO NOT EXCEED 3000 MG APAP/24 Hours 2 tabs 12/20 Inactiv e 2023 66797 16380 0 Every 4 hours as needed By Mouth False Dulcolax (bisacodyl) 10 mg rectal suppository Daily as needed For Constipation 1 sup 12/20 Inactiv e 2023 26028 34178 1 Daily as needed Rectal False Fleet Enema 19 gram-7 gram/118 mL 1 Rectal Daily as neededFor Constipation 1 12/20 Inactiv e 2023 38140 49251 6 Daily as needed Rectal False Milk of Magnesia 400 mg/5 mL oral suspension [Magnesium hydroxide] PRN 30ml By Mouth Daily as needed for constipation one time daily if no BM, on day 4 of no BM (PRN refer to instructions) For Constipation For Constipatioin 30ml 12/20 Inactiv e 2023 40479 61163 6 1 time By Mouth False Melatonin 3 mg tablet [generic] 3 mg By Mouth Once daily As Needed For INSOMNIA 3 mg 12/20 Inactiv e 2023 23065 27369 8 Once daily By Mouth False Problems Code [...] adjustment of urinary device 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 07/21 Active [...] weight Temperature SpO2 Blood Sugar Pulse Respirations 01819 211 17903 5 78.00 mm[Hg] - Sitting 125.00 mm[Hg] - Sitting 72438 216 23015 1 254.10 NI 97936 216 96974 2 79.00 mm[Hg] - Sitting 157.00 mm[Hg] - Sitting 73 NI 254.10 NI 36.30 Tympanic 95.00 % 72.00/ min 16.00/min 86749 216 14232 4 98.80 Tympanic 41216 216 25241 2 78.00 mm[Hg] - Sitting 164.00 mm[Hg] - Sitting 96620 217 11346 3 98.20 Tympanic 97512 217 79495 5 73.00 mm[Hg] - Sitting 159.00 mm[Hg] - Sitting 60571 217 99353 9 98.40 Forehead Scan 54043 218 59075 3 97.90 Tympanic 31287 218 94412 5 77.00 mm[Hg] - Sitting 137.00 mm[Hg] - Sitting 61887 219 37547 0 97.70 Tympanic 38847 219 08095 6 97.60 Tympanic 47707 219 06856 4 76.00 mm[Hg] - Sitting 139.00 mm[Hg] - Sitting 81979 219 93804 4 97.80 Forehead Scan 66955 220 61590 9 97.90 Tympanic 38502 220 20312 9 76.00 mm[Hg] - Sitting 138.00 mm[Hg] - Sitting 36276 220 35710 6 98.10 Tympanic 77641 221 42068 5 67.00 mm[Hg] - Sitting 142.00 mm[Hg] - Sitting 92300 221 43023 8 98.20 Tympanic 54342 221 22026 0 98.30 Tympanic 48480 222 00036 7 98.20 Tympanic 53434 222 68320 8 97.90 Tympanic 77046 223 98897 3 98.20 Tympanic 06587 223 73815 3 98.00 Tympanic 49758 224 94201 0 59.00 mm[Hg] - Sitting 111.00 mm[Hg] - Sitting 98.40 Forehead Scan 95.00 % 56.00/ min 18.00/min 35035 224 57253 9 98.20 Forehead Scan 88417 224 34358 3 97.90 Tympanic 16183 225 03185 4 98.20 Tympanic 09824 225 28404 8 97.50 Forehead Scan 23190 228 35706 0 55.00 mm[Hg] - Sitting 118.00 mm[Hg] - Sitting 98.40 Tympanic 69.00/ min 26778 229 03645 8 78.00 mm[Hg] - Sitting 152.00 mm[Hg] - Sitting 23797 230 95279 0 62.00 mm[Hg] - Sitting 122.00 mm[Hg] - Sitting 13335 231 94988 7 72.00 mm[Hg] - Lying Down 140.00 mm[Hg] - Lying Down 54709 101 48781 3 97.70 Forehead Scan 24194 101 19682 1 254.10 NI 69.00/ min 42746 101 54504 9 72.00 mm[Hg] - Sitting 142.00 mm[Hg] - Sitting 97.70 Tympanic 18.00/min 96291 101 19385 3 72.00 mm[Hg] - Lying Down 142.00 mm[Hg] - Lying Down 64041 102 29655 8 68.00 mm[Hg] - Lying Down 152.00 mm[Hg] - Lying Down 34268 103 26612 5 74.00 mm[Hg] - Sitting 158.00 mm[Hg] - Sitting 47677 104 57225 9 78.00 mm[Hg] - Sitting 144.00 mm[Hg] - Sitting 53716 105 31568 5 68.00 mm[Hg] - Sitting 138.00 mm[Hg] - Sitting 41068 106 93975 1 70.00 mm[Hg] - Sitting 138.00 mm[Hg] - Sitting 44063 107 02130 1 67.00 mm[Hg] - Sitting 142.00 mm[Hg] - Sitting 93844 108 20169 0 74.00 mm[Hg] - Sitting 143.00 mm[Hg] [...]
--- OUTSIDE RECORDS SUMMARY | 2024-07-26 11:16 | External Medical Summary | Continuity Of Care Document ---
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 Name Role Phone DO Pritchett Amy Primary Care Provider [phone] Allergies Allergy Reaction Start Date End Date Status AMINOGLYCOSIDES Active CIPRO Active GENTAMICIN Active NSAIDS (NON-STEROIDAL ANTI-INFLAMMATORY DRUG) 0 Active IBUPROFEN Active QUINOLONES Active VALIUM Active Medications Medication Instructions Dosage Start Date End Date Status Order Date Drug Code Frequency Route of Admin Diagnosis Code Substitutions Allowed Spikevax [id number](1 2y up)(PF) 50 mcg/0.5 mL intramuscul ar suspension [COVID [id number](12 up)(andu)(P F)] 0.5mL Intramuscular 1 time Monitory 15 Minutes post injection for adverse effects; record site/temp For COVID 19 PREVENTION 0.5mL 01/02 Inactiv e 2023 77245 97130 4 1 time Intram uscula r False [facility] - Nurse initials indicate verificatio n that [id number] vaccine was administere d by [facility] 1 Intramuscular 1 time ( Indicate vaccine type) For vaccine 1 05/03 Inactiv e 2023 1 time Intram uscula r False Lisinopril 40 mg tablet [generic] TAKE ONE (1) TABLET BY MOUTH IN THE MORNING. For DX- HTN 1 2023 Active 2023 46579 82715 1 Once daily By Mouth False Tizanidine 2 mg tablet [generic] TAKE ONE (1) TABLET BY MOUTH ONCE DAILY For MUSCLE SPASM 1 2023 Active 2023 78086 26903 0 Once daily By Mouth M62.838 False Tamsulosin 0.4 mg capsule [generic] TAKE (1) CAPSULE BY MOUTH AT BEDTIME For SPASMS 1 2023 Active 2023 86067 37174 0 Once daily By Mouth False Aspirin 81 mg tablet Once daily 1 TABLET BY MOUTH IN THE MORNING For DX- CAD DO NOT CRUSH, CHEW OR BREAK 81 mg 06/12 Inactiv e 2023 Once daily By Mouth False Baclofen 20 mg tablet [generic] 20 mg By Mouth 4 times a day For DX- MUSCLE SPASMS 20 mg 12/12 Inactiv e 2023 11905 99371 1 4 times a day By Mouth False Calcium citrate 250 mg tablet Once daily 4 TABLET BY MOUTH For DX- SUPPLEMENT 250 mg calci 12/12 Inactiv e 2023 Once daily By Mouth False Co Q-10 100 mg capsule 100 mg By Mouth Once daily For DX- SUPPLEMENT 100 mg 06/20 Inactiv e 2023 28562 08357 5 Once daily By Mouth False Furosemide 20 mg tablet [generic] 20 mg By Mouth Once daily For DX-CHF 20 mg 12/12 Inactiv e 2023 46289 10466 0 Once daily By Mouth False Gabapentin 300 mg capsule [generic] 300 mg By Mouth 3 times a day For DX- NEUROPATHY 300 mg 12/12 Inactiv e 2023 12719 48364 4 3 times a day By Mouth False Loratadine 10 mg tablet [generic] 10 mg By Mouth Once daily For DX- ALLERGIES 10 mg 2023 Active 2023 34460 01615 1 Once daily By Mouth False Miralax 17 gram/dose oral powder 17 gram/dose By Mouth IN THE MORNING Mix 1 TABLESPOON IN 8 OZ OF FLUID HOLD FOR LOOSE STOOLS For DX- CONSTIPATION 17 gram/do se 12/12 Inactiv e 2023 71591 97889 0 Once daily By Mouth False Paroxetine 30 mg tablet [generic] 30 mg By Mouth Once daily For DX- DEPRESSION 30 mg 2023 00/00 /0000 Active 2023 77801 97453 3 Once daily By Mouth False Potassium citrate ER 15 mEq (1,620 mg) tablet,exte nded release [generic] 15 mEq By Mouth 3 times a day For DX- SUPPLEMENT/DI URETIC USE/ HYPOCITRAUIRA DO NOT CRUSH 15 mEq 12/12 Inactiv e 2023 41468 09880 1 3 times a day By Mouth [...] For DX- DANDRUFF 12/12 Inactiv e 2023 27457 30420 4 3 times a week Topica l False Acetaminoph en 325 mg tablet [generic] TAKE 2 TABS (650MG) BY MOUTH EVERY 4 HOURS NEEDED FOR TEMP >100 NOT TO EXCEED 3GM/24HRS TAKE 2 TABS (650MG) BY MOUTH EVERY 4 HOURS NEEDED FOR TEMP >100 NOT TO EXCEED 3GM/24HRS For DX-FEVER 2 12/12 Inactiv e 2023 12815 75505 0 By Mouth False MILK OF MAGNESIA ADMINISTER 30 ML BY MOUTH ONCE DAILY NEEDED FOR CONSTIPATION X3 DAYS WITH NO BM. For DX- CONSTIPATION 30ML 12/12 Inactiv e 2023 95088 66618 9 By Mouth False Enema Disposable 19 gram-7 gram/118 mL ADMINISTER ONE ENEMA RECTALLY ONCE DAILY NEEDED FOR CONSTIPATION ON DAY 6 OF NO BM For DX- CONSTIPATION 12/12 Inactiv e 2023 41734 68109 1 Rectal False TUMS EXTRA STR 750MG TAKE (1) TABLET BY MOUTH THREE TIMES DAILY NEEDED FOR INDIGESTION For DX- INDIGESTION 1 12/12 Inactiv e 2023 93847 90534 8 By Mouth False Vitamin D3 25 [...] CONSTIPATION 10 mg 12/12 Inactiv e 2023 49152 27261 1 Rectal False Melatonin 3 mg tablet [generic] 3 mg By Mouth As Needed For DX-INSOMMIA 3 mg 12/12 Inactiv e 2023 59536 80206 8 By Mouth False Hydrocortis one 1 % topical cream [generic] 1 % Topical As Needed For DX- PAIN 1 % 12/12 Inactiv e 2023 43171 05219 1 Topica l False HYDROCORTIS ONE/PARMOXI NE [...] 5-10 50 mg 12/20 Inactiv e 2023 58998 43117 0 Every 4 hours as needed By Mouth False Tylenol 325 mg tablet 325 mg By Mouth Every 4 hours as needed For DX- PAIN PRN FOR MILD PAIN, DO NOT EXCEED 3000MG APAP/24 HOURS 325 mg 12/20 Inactiv e 2023 98671 16264 0 Every 4 hours as needed By Mouth False Baclofen 20 mg tablet [generic] 20 mg By Mouth 4 times a day For MUSCLE SPASMS 20 mg 12/20 Inactiv e 2023 09652 66224 1 4 times a day By Mouth False Calcium citrate 250 mg tablet [generic] Once daily TAKE 4 TABLETS (1000MG) BY MOUTH For SUPPLEMENT 1000 MG 06/26 Inactiv e 2023 92478 44069 6 Once daily By Mouth False Dulcolax (bisacodyl) 10 mg rectal suppository 10 mg Rectal Once daily For CONSTIPATION *MAY HOLD FOR LOOSE STOOLS* 10 mg 2023 Active 2023 23444 42405 1 Once daily Rectal False Gabapentin 300 mg capsule [generic] 300 mg By Mouth 3 times a day For NEUROPATHY 300 mg 2023 Active 2023 61857 12935 4 3 times a day By Mouth False Potassium citrate ER 15 mEq (1,620 mg) tablet,exte nded release [generic] 15 mEq By Mouth 3 times a day For SUPPLEMENT/DI URETIC USE/HYPOCITRA URIA 15 mEq 06/11 Inactiv e 2023 23938 81952 1 3 times a day By Mouth False Potassium chloride ER 20 mEq tablet,exte nded release [generic] 20 mEq By Mouth 3 times a day *DO NOT CRUSH, CHEW OR BREAK* For SUPPLEMENT 20 mEq 12/18 Inactiv e 2023 72656 89709 1 3 times a day By Mouth False Tizanidine 4 mg tablet [generic] 4 mg By Mouth Once daily For MUSCLE SPASMS 4 mg 2023 Active 2023 91691 40292 0 Once daily By Mouth False Tylenol 325 mg tablet 2 tabs By Mouth Every 4 hours as needed For Fever >100 DO NOT EXCEED 3000 MG APAP/24 Hours 2 tabs 12/20 Inactiv e 2023 72034 21831 0 Every 4 hours as needed By Mouth False Dulcolax (bisacodyl) 10 mg rectal suppository Daily as needed For Constipation 1 sup 12/20 Inactiv e 2023 38401 07373 1 Daily as needed Rectal False Fleet Enema 19 gram-7 gram/118 mL 1 Rectal Daily as neededFor Constipation 1 12/20 Inactiv e 2023 02209 90587 6 Daily as needed Rectal False Milk of Magnesia 400 mg/5 mL oral suspension [Magnesium hydroxide] PRN 30ml By Mouth Daily as needed for constipation one time daily if no BM, on day 4 of no BM (PRN refer to instructions) For Constipation For Constipatioin 30ml 12/20 Inactiv e 2023 93101 57647 6 1 time By Mouth False Melatonin 3 mg tablet [generic] 3 mg By Mouth Once daily As Needed For INSOMNIA 3 mg 12/20 Inactiv e 2023 49400 87087 8 Once daily By Mouth False Hydrocortis one 1 % topical cream [generic] 1 % Rectal Four times daily as needed For hemorroid pain 1 % 12/20 Inactiv e 2023 75319 04086 1 Four times daily as needed Rectal False X-STGH ANTACID 750MG CHEW TAKE (1) TABLET BY MOUTH THREE TIMES DAILY NEEDED FOR INDIGESTION 12/20 Inactiv e 2023 23780 30679 4 Three times daily as needed Saline Mist 0.65 % nasal spray aerosol 0.65 % Nares Four times daily as needed For DRYNESS 0.65 % 12/20 Inactiv e 2023 45218 39746 8 Four times daily as needed Nares False Vicks Vaporub 4.7 %-1.2 %-2.6 % topical ointment Apply topically to chest Three times daily as needed For CONGESTION 4.7-1.2 -2.6 12/20 Inactiv e 2023 57514 86750 1 Three times daily as needed Topica l False VITAMIN D3 2000U CAP TAKE ONE (1) CAPSULE BY MOUTH DAILY* DO NOT CRUSH, CHEW OR BREAK* For Supplement 1 capsule 12/19 Inactiv e 2023 50002 14374 0 Once daily By Mouth False Potassium chloride ER 20 mEq tablet,exte nded release(par t/cryst) [generic] TAKE (1) TABLET BY MOUTH THREE TIMES DAILY (MORNING, AFTERNOON, EVENING)*DO NOT CRUSH, CHEW, OR BREAK* For SUPPLEMENT 20 MEQ 06/11 Inactiv e 2023 88101 75316 5 3 times a day By Mouth False Aspirin 81 mg tablet,camron yed release [generic] TAKE ONE (1) TABLET BY MOUTH ONCE DAILY*DO NOT CRUSH, CHEW OR BREAK* For CAD 81 MG 12/22 Inactiv e 2023 40972 07106 0 Once daily By Mouth False Furosemide 20 mg tablet [generic] TAKE 1 AND 1/2 TABLETS (30MG) BY MOUTH ONCE DAILY For CHF 30mg 2023 Active 2023 46855 66891 1 Once daily By Mouth False Polyethylen e glycol 3350 17 gram/dose oral powder [generic] MIX 17 GRAMS (1 CAPFUL) IN 60Z OF LIQUID AND DRINK BY MOUTH ONCE DAILY *HOLD FOR LOOSE STOOLS* For constipation 17 g 2023 Active 2023 59977 11388 3 Once daily By Mouth False Vitamin D3 50 mcg (2,000 unit) capsule Once daily TAKE ONE (1) CAPSULE BY MOUTH DAILY* DO NOT CRUSH, CHEW OR BREAK* For Supplement 1 capsule 02/07 Inactiv e 2023 52505 34960 2 Once daily By Mouth False Fleet Enema 19 gram-7 gram/118 mL 1 Rectal Daily as neededFor Constipation 1 2023 0000 Active 2023 72381 82860 6 Daily as needed Rectal False Tums E-X 300 mg (as calcium carbonate 750 mg) chewable tablet 1 tab By Mouth TAKE (1) TABLET BY MOUTH THREE TIMES DAILY NEEDED FOR INDIGESTION 1 tab 202300 /0000 Active 2023 43258 40998 1 Three times daily as needed By Mouth False Tylenol 325 mg tablet 2 tabs By Mouth Every 4 hours as needed For Fever >100 DO NOT EXCEED 3000 MG APAP/24 Hours 2 tabs 202300 /0000 Active 2023 94111 65529 0 Every 4 hours as needed By Mouth False Vicks Vaporub 4.7 %-1.2 %-2.6 % topical ointment Apply topically to chest Three times daily as needed For CONGESTION topical 202300 Active 2023 92829 28558 1 Three times daily as needed Topica l False Tylenol 325 mg tablet 2 tabs By Mouth Every 4 hours as needed For DX- PAIN PRN FOR MILD PAIN, DO NOT EXCEED 3000MG APAP/24 HOURS 2 tabs 202300 Active 2023 14138 19673 0 Every 4 hours as needed By Mouth False Tramadol 50 mg tablet [generic] 1 tab By Mouth Every 4 hours as needed For DX- PAIN 5-10 1 tab 03/10 Inactiv e 2023 54260 26266 0 Every 4 hours as needed By Mouth False Saline Mist 0.65 % nasal spray aerosol 2 sprays Nares Four times daily as needed For DRYNESS 2 sprays 202300 / Active 2023 58028 57170 8 Four times daily as needed Nares False Dulcolax (bisacodyl) 10 mg rectal suppository Daily as needed For Constipation 1 sup 202300 / Active 2023 14831 56448 1 Daily as needed Rectal False Hydrocortis one-pramoxi ne 1 %-1 % rectal cream [generic] 1 mague Rectal Four times daily as needed For hemorroid pain 1 mague 202300 /0000 Active 2023 52416 91209 4 Four times daily as needed Rectal False Melatonin 3 mg tablet [generic] 1 tab By Mouth At bedtime as needed For INSOMNIA 1 tab 12/24 Inactiv e 2023 68720 15918 8 At bedtime as needed By Mouth False Milk of Magnesia 400 mg/5 mL oral suspension 30ml By Mouth Daily as needed Daily as needed for constipation one time daily if no BM, on day 4 of no BM (PRN refer to instructions) For Constipation For Constipatioin 30ml 2023 Active 2023 08855 78609 2 Daily as needed By Mouth False Baclofen 20 mg tablet [generic] 20 mg By Mouth 4 times a day For MUSCLE SPASMS 20 mg 2023 Active 2023 09629 35281 1 4 times a day By Mouth False Melatonin 3 mg tablet [generic] 1 tab By Mouth At bedtime as needed For INSOMNIA 1 tab 2023 Active 2023 01113 75739 8 At bedtime as needed By Mouth False Bactrim DS 800 mg-160 mg tablet 1 tab By Mouth Twice daily For URINARY TRACT INFECTION, SITE NOT SPECIFIED 1 tab 01/06 Inactiv e 2023 28469 89249 1 Twice daily By Mouth N39.0 False Cefdinir 300 mg capsule [generic] 300 mg By Mouth Twice daily For UTI 300 mg 01/07 Inactiv e 2023 32152 56515 0 Twice daily By Mouth False Cefdinir 300 mg capsule [generic] 300 mg By Mouth Twice daily For UTI 300 mg 01/17 Inactiv e 2023 05058 94141 0 Twice daily By Mouth False Zyrtec 10 mg tablet 10 mg By Mouth Once daily For sinus congestion 10 mg 01/22 Inactiv e 2023 76844 42196 0 Once daily By Mouth False Tobramycin 0.3 %-dexametha sone 0.1 % eye drops,suspe nsion [generic] 0.3-0.1 % Left Eye 4 times a day For eye infection 0.3-0.1 % 02/05 Inactiv e 2023 76819 15116 5 4 times a day Left Eye False Fluconazole 150 mg tablet [generic] 150 mg By Mouth 1 time For yeast infection 150 mg 02/15 Inactiv e 2023 87439 07793 2 1 time By Mouth False Tramadol 50 mg tablet [generic] 1 tab By Mouth Every 4 hours as needed For DX- PAIN 5-10 1 tab 2023 00/00 /0000 Active 2023 04816 60678 0 Every 4 hours as needed By Mouth False Tobramycin 0.3 %-dexametha sone 0.1 % eye drops,suspe nsion [generic] 1 drop Left Eye 4 times a day For Inflammation of left eye 1 drop 05/08 Inactiv e 2023 29015 60097 5 4 times a day Left Eye False Voltaren Arthritis Pain 1 % topical gel 2 gm Topical Twice daily to rigth shoulder for 2 weeks For pain 2 gm 05/08 Inactiv e 2023 17334 09017 1 Twice daily Topica l False Chlorthalid one 25 mg tablet [generic] 12.5mg By Mouth Once daily For HTN 12.5mg 05/06 Inactiv e 2023 94537 57663 0 Once daily By Mouth False Chlorthalid one 25 mg tablet [generic] 12.5mg By Mouth Once daily For HTN 12.5mg 05/07 Inactiv e 2023 38838 22716 0 Once daily By Mouth False Chlorthalid one 25 mg tablet [generic] 05/07 Inactiv e 2023 78332 89228 0 Chlorthalid one 25 mg tablet [generic] 12.5mg By Mouth Once daily For HTN 12.5mg 06/26 Inactiv e 2023 14378 84886 0 Once daily By Mouth False Norvasc 5 mg tablet 5mg By Mouth Once daily, hold medication if systolic is less than 90 For HYPERTENSIVE HEART DISEASE WITHOUT HEART FAILURE 5mg 06/03 Inactiv e 2023 85671 11153 1 Once daily By Mouth I11.9 False Norvasc 5 mg tablet 5mg By Mouth Once daily, hold medication if systolic is less than 90 For HYPERTENSIVE HEART DISEASE WITHOUT HEART FAILURE 5mg 06/03 Inactiv e 2023 16536 43862 1 Once daily By Mouth I11.9 False Norvasc 5 mg tablet 5mg By Mouth Once daily, hold medication if systolic is less than 90 For HYPERTENSIVE HEART DISEASE WITHOUT HEART FAILURE 5mg 06/26 Inactiv e 2023 80380 49764 1 Once daily By Mouth I11.9 False [...] 10 mg 2023 00/00 /0000 Active 2023 98063 74780 1 Once daily By Mouth False DISCONTINUE [...] CAD 81 mg 06/14 Inactiv e 2023 67473 06789 9 Once daily By Mouth False Aspirin 81 mg tablet,camron yed release [generic] 06/14 Inactiv e 2023 71985 70759 9 Aspirin 81 mg tablet,camron yed release [generic] 81 mg By Mouth Once daily Do not crush, chew, or break For CAD 81 mg 06/154 Inactiv e 2023 27781 78630 9 Once daily By Mouth False Cefpodoxime 200 mg tablet [generic] 200mg By Mouth Twice daily For UTI 200mg 07/04 Inactiv e 2023 57752 05202 0 Twice daily By Mouth False Calcium citrate 250 mg tablet [generic] 06/26 Inactiv e 2023 68096 12875 6 Calcium citrate 250 mg tablet [generic] Once daily TAKE 4 TABLETS (1000MG) BY MOUTH For SUPPLEMENT 500 MG 2023 Active 2023 18797 98993 6 Once daily By Mouth False Norvasc 5 mg tablet 7.5 mg By Mouth Once daily Hold medication if SBP <90 For HYPERTENSIVE HEART DISEASE WITHOUT HEART FAILURE 7.5 mg 06/30 Inactiv e 2023 30823 41879 1 Once daily By Mouth I11.9 False Norvasc 5 mg tablet 7.5 mg By Mouth Once daily Hold medication if SBP <90 For HYPERTENSIVE HEART DISEASE WITHOUT HEART FAILURE 7.5 mg 07/06 Inactiv e 2023 66170 06800 1 Once daily By Mouth I11.9 False Simethicone 125 mg capsule [generic] 2 capule By Mouth Twice daily as needed For bloating/gas pain 2 capule 2023 Active 2023 19851 00937 0 Twice daily as needed By Mouth False Cepacol Sore Throat (benzocaine -menthol) 15 mg-2.6 mg lozenges 2 lozenges By Mouth Every 6 hours as needed For sore throat 2 lozenge s 2023 Active 2023 29535 44297 6 Every 6 hours as needed By Mouth False Cefepime 1 gram solution for injection [generic] 1g Intramuscular Every 12 hours 1g intramuscular ly ever 12 hours For UTI 1g 07/06 Inactiv e 2023 56273 47912 4 Every 12 hours Intram uscula r False Cefepime 1 gram solution for injection [generic] 07/06 Inactiv e 2023 57079 09765 4 Cefepime 1 gram solution for injection [generic] 1g Intramuscular Every 12 hours 1g intramuscular ly ever 12 hours For UTI Reconstitute with 2.4 ML of NSS. 1g 07/08 Inactiv e 2023 39673 74350 4 Every 12 hours Intram uscula r False Norvasc 5 mg tablet 07/06 Inactiv e 2023 98340 84130 1 I11.9 Norvasc 5 mg tablet 7.5 mg By Mouth Once daily Hold medication if SBP <90 For HYPERTENSIVE HEART DISEASE WITHOUT HEART FAILURE 7.5 mg 07/18 Inactiv e 2023 75010 99313 1 Once daily By Mouth I11.9 False Cefepime 1 gram solution for injection [generic] 07/08 Inactiv e 2023 82742 63985 4 Cefepime 1 gram solution for injection [generic] 1g Intramuscular Every 12 hours 1g intramuscular ly ever 12 hours For UTI Reconstitute with 2.4 ML of NSS. 1g 07/08 Inactiv e 2023 68190 00187 4 Every 12 hours Intram uscula r False Cefepime 1 gram solution for injection [generic] 07/08 Inactiv e 2023 49909 16648 4 Cefepime 1 gram solution for injection [generic] 1g Intramuscular Every 12 hours 1g intramuscular ly ever 12 hours For UTI Reconstitute with 2.4 ML of NSS. 1g 07/11 Inactiv e 2023 10461 77471 4 Every 12 hours Intram uscula r False Fleet Enema 19 gram-7 gram/118 mL 1 Rectal 1 time For constipation 1 07/16 Inactiv e 2024 04984 37626 6 1 time Rectal False Fleet Enema 19 gram-7 gram/118 mL 1 Rectal 1 time For constipation 1 07/17 Inactiv e 2024 18641 39167 6 1 time Rectal False Norvasc 5 mg tablet 7.5 mg By Mouth Once daily For HYPERTENSIVE HEART DISEASE WITHOUT HEART FAILURE 7.5 mg 2024 00/00 /0000 Active 2024 39041 59960 1 Once daily By Mouth I11.9 False Potassium chloride ER 20 mEq tablet,exte nded release(par t/cryst) [generic] 40 mEq By Mouth 1 time For low potassium prior to surgery 40 mEq 07/18 Inactiv e 2024 75264 01351 1 1 time By Mouth False Potassium chloride ER 20 mEq tablet,exte nded release(par t/cryst) [generic] 40 mEq By Mouth 1 time For low potassium prior to surgery 40 mEq 07/18 Inactiv e 2024 61174 20584 1 1 time By Mouth False Potassium chloride ER 20 mEq tablet,exte nded release(par t/cryst) [generic] 40 mEq By Mouth 1 time For low potassium 40 mEq 07/18 Inactiv e 2024 58708 18345 1 1 time By Mouth False Potassium chloride ER 20 mEq tablet,exte nded release(par t/cryst) [generic] 40 mEq By Mouth 1 time For low potassium 40 mEq 07/18 Inactiv e 2024 36142 13531 1 1 time By Mouth False Potassium chloride ER 20 mEq tablet,exte nded release [generic] 2 By Mouth 1 time For low potassium 2 07/19 Inactiv e 2024 81267 69523 1 1 time By Mouth False Potassium chloride ER 20 mEq tablet,exte nded release [generic] 2 capsules capsules By Mouth 1 time Please send capsule (2 capsules) For low potassium 2 capsule s 07/20 Active 2024 54371 90120 1 1 time By Mouth False Nystatin 100,000 unit/gram topical cream [generic] 100,000 unit Topical As Needed For DX- EXCORIATION 100,000 unit 12/12 Inactiv e 2023 83402 79916 5 Topica l False Vicks Vaporub 4.7 %-1.2 %-2.6 % topical ointment 4.7-1.2-2.6 Topical 3 times a day As Needed For DX- CONGESTION 4.7-1.2 -2.6 12/12 Inactiv e 2023 11564 82467 1 3 times a day Topica l False Ketoconazol e 2 % shampoo [generic] APPLY SHAMPOO TOPICALLY TO SCALP DURING HAIR WASHINGDX: ELVIA DERM OF SCALP For DX- ELVIA DERM OF SCALP 12/12 Inactiv e 2023 82990 00407 4 Topica l False THERA SILICONE SKIN GUARD Topical Twice daily 1 APPLICATION TOPICALLY IN THE MORNING AND AT BEDTIME TO SCROTUM For DX- PREVENTION 2023 0000 0000 Active 2023 Twice daily Topica l False Selenium sulfide 2.5 % lotion [generic] 2.5 % Topical EVERY MONDAY, MONDAY AND MONDAY AFTER SHOWER For DANDRUFF 2.5 % 202300 /0000 Active 2023 93800 11542 4 3 times a week Topica l False Nystatin (bulk) 100 million unit powder [generic] 100 million Topical Twice daily as needed For EXOCORATION 100 million 12/20 Inactiv e 2023 67535 75451 1 Twice daily as needed Topica l False Ketoconazol e 2 % shampoo [generic] Once daily APPLY SHAMPOO TOPICALLY TO SCALP DURING HAIR WASHING ON SHOWER DAYS- , , MON For ELVIA DERM OF SCAP 2 % 2023 0000 /0000 Active 2023 70422 85924 4 Once daily Topica l False Nystatin 100,000 unit/gram topical cream [generic] 1 mague Topical Twice daily as needed For EXOCORATION 1 mague 06/05 Inactiv e 2023 31190 19007 5 Twice daily as needed Topica l False Nystatin 100,000 unit/gram topical powder [generic] 100,000 unit Topical Twice daily to scrotum with AM and PM care For Scrotal excoriation 100,000 unit 06/05 Inactiv e 2023 05935 94203 5 Twice daily Topica l False Problems [...] adjustment of urinary device 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 07/21 Active N31.9 [...] weight Temperature SpO2 Blood Sugar Pulse Respirations 36994 211 24087 5 78.00 mm[Hg] - Sitting 125.00 mm[Hg] - Sitting 41880 216 31931 1 254.10 NI 6[address]24 216 77671 2 79.00 mm[Hg] - Sitting 157.00 mm[Hg] - Sitting 73 NI 254.10 NI 36.30 Tympanic 95.00 % 72.00/ min 16.00/min 63967 216 97416 4 98.80 Tympanic 34865 216 28970 2 78.00 mm[Hg] - Sitting 164.00 mm[Hg] - Sitting 10458 217 37439 3 98.20 Tympanic 99939 217 67695 5 73.00 mm[Hg] - Sitting 159.00 mm[Hg] - Sitting 08678 217 66174 9 98.40 Forehead Scan 56677 218 34964 3 97.90 Tympanic 28130 218 47357 5 77.00 mm[Hg] - Sitting 137.00 mm[Hg] - Sitting 74217 219 25983 0 97.70 Tympanic 97777 219 44973 6 97.60 Tympanic 41867 219 15622 4 76.00 mm[Hg] - Sitting 139.00 mm[Hg] - Sitting 97831 219 08697 4 97.80 Forehead Scan 31410 220 71272 9 97.90 Tympanic 21449 220 61352 9 76.00 mm[Hg] - Sitting 138.00 mm[Hg] - Sitting 96602 220 37231 6 98.10 Tympanic 30882 221 51050 5 67.00 mm[Hg] - Sitting 142.00 mm[Hg] - Sitting 73984 221 58998 8 98.20 Tympanic 56273 221 33226 0 98.30 Tympanic 81411 222 88053 7 98.20 Tympanic 26437 222 50091 8 97.90 Tympanic 00756 223 33915 3 98.20 Tympanic 03156 223 87716 3 98.00 Tympanic 06285 224 62914 0 59.00 mm[Hg] - Sitting 111.00 mm[Hg] - Sitting 98.40 Forehead Scan 95.00 % 56.00/ min 18.00/min 27470 224 29182 9 98.20 Forehead Scan 17805 224 58722 3 97.90 Tympanic 40527 225 05166 4 98.20 Tympanic 37640 225 75781 8 97.50 Forehead Scan 70429 228 83941 0 55.00 mm[Hg] - Sitting 118.00 mm[Hg] - Sitting 98.40 Tympanic 69.00/ min 94508 229 05626 8 78.00 mm[Hg] - Sitting 152.00 mm[Hg] - Sitting 34031 230 48054 0 62.00 mm[Hg] - Sitting 122.00 mm[Hg] - Sitting 78154 231 20292 7 72.00 mm[Hg] - Lying Down 140.00 mm[Hg] - Lying Down 61141 101 05982 3 97.70 Forehead Scan 44395 101 68279 1 254.10 NI 69.00/ min 37389 101 93251 9 72.00 mm[Hg] - Sitting 142.00 mm[Hg] - Sitting 97.70 Tympanic 18.00/min 17717 101 43861 3 72.00 mm[Hg] - Lying Down 142.00 mm[Hg] - Lying Down 39220 102 28699 8 68.00 mm[Hg] - Lying Down 152.00 mm[Hg] - Lying Down 75185 103 25586 5 74.00 mm[Hg] - Sitting 158.00 mm[Hg] - Sitting 02455 104 42480 9 78.00 mm[Hg] - Sitting 144.00 mm[Hg] - Sitting 31251 105 78920 5 68.00 mm[Hg] - Sitting 138.00 mm[Hg] - Sitting 28446 106 47416 1 70.00 mm[Hg] - Sitting 138.00 mm[Hg] - Sitting 01105 107 28599 1 67.00 mm[Hg] - Sitting 142.00 mm[Hg] - Sitting 50527 108 50285 0 74.00 mm[Hg] - Sitting 143.00 mm[Hg] [...]
--- OUTSIDE RECORDS SUMMARY | 2024-07-26 11:16 | External Medical Summary | Continuity Of Care Document ---
Author Name Unknown Address [address] [address] Organization [facility] () Care Team Providers Care Acid Changer Name Role Phone DO Pritchett Amy Primary Care Provider [phone] Allergies Allergy Reaction Start Date End Date Status AMINOGLYCOSIDES Active CIPRO Active GENTAMICIN Active NSAIDS (NON-STEROIDAL ANTI-INFLAMMATORY DRUG) 0 Active IBUPROFEN Active QUINOLONES Active VALIUM Active Medications Medication Instructions Dosage Start Date End Date Status Order Date Drug Code Frequency Route of Admin Diagnosis Code Substitutions Allowed Spikevax 2615-4839(1 2y up)(PF) 50 mcg/0.5 mL intramuscul ar suspension [COVID [id number](12 up)(andu)(P F)] 0.5mL Intramuscular 1 time Monitory 15 Minutes post injection for adverse effects; record site/temp For COVID 19 PREVENTION 0.5mL 01/02 Inactiv e 2023 05883 16478 4 1 time Intram uscula r False [facility] - Nurse initials indicate verificatio n that [id number] vaccine was administere d by [facility] Representat jon 1 Intramuscular 1 time ( Indicate vaccine type) For vaccine 1 05/03 Inactiv e 2023 1 time Intram uscula r False Lisinopril 40 mg tablet [generic] TAKE ONE (1) TABLET BY MOUTH IN THE MORNING. For DX- HTN 1 2023 Active 2023 53887 15185 1 Once daily By Mouth False Tizanidine 2 mg tablet [generic] TAKE ONE (1) TABLET BY MOUTH ONCE DAILY For MUSCLE SPASM 1 2023 Active 2023 44803 48171 0 Once daily By Mouth M62.838 False Tamsulosin 0.4 mg capsule [generic] TAKE (1) CAPSULE BY MOUTH AT BEDTIME For SPASMS 1 2023 Active 2023 43072 50263 0 Once daily By Mouth False Aspirin 81 mg tablet Once daily 1 TABLET BY MOUTH IN THE MORNING For DX- CAD DO NOT CRUSH, CHEW OR BREAK 81 mg 06/12 Inactiv e 2023 Once daily By Mouth False Baclofen 20 mg tablet [generic] 20 mg By Mouth 4 times a day For DX- MUSCLE SPASMS 20 mg 12/12 Inactiv e 2023 68907 28643 1 4 times a day By Mouth False Calcium citrate 250 mg tablet Once daily 4 TABLET BY MOUTH For DX- SUPPLEMENT 250 mg calci 12/12 Inactiv e 2023 Once daily By Mouth False Co Q-10 100 mg capsule 100 mg By Mouth Once daily For DX- SUPPLEMENT 100 mg 06/20 Inactiv e 2023 86697 61527 5 Once daily By Mouth False Furosemide 20 mg tablet [generic] 20 mg By Mouth Once daily For DX-CHF 20 mg 12/12 Inactiv e 2023 22331 54247 0 Once daily By Mouth False Gabapentin 300 mg capsule [generic] 300 mg By Mouth 3 times a day For DX- NEUROPATHY 300 mg 12/12 Inactiv e 2023 71400 59661 4 3 times a day By Mouth False Loratadine 10 mg tablet [generic] 10 mg By Mouth Once daily For DX- ALLERGIES 10 mg 2023 Active 2023 80229 32253 1 Once daily By Mouth False Miralax 17 gram/dose oral powder 17 gram/dose By Mouth IN THE MORNING Mix 1 TABLESPOON IN 8 OZ OF FLUID HOLD FOR LOOSE STOOLS For DX- CONSTIPATION 17 gram/do se 12/12 Inactiv e 2023 35372 38414 0 Once daily By Mouth False Paroxetine 30 mg tablet [generic] 30 mg By Mouth Once daily For DX- DEPRESSION 30 mg 2023 00/00 /0000 Active 2023 64390 90344 3 Once daily By Mouth False Potassium citrate ER 15 mEq (1,620 mg) tablet,exte nded release [generic] 15 mEq By Mouth 3 times a day For DX- SUPPLEMENT/DI URETIC USE/ HYPOCITRAUIRA DO NOT CRUSH 15 mEq 12/12 Inactiv e 2023 72808 37359 1 3 times a day By Mouth [...] For DX- DANDRUFF 12/12 Inactiv e 2023 80119 05323 4 3 times a week Topica l False Acetaminoph en 325 mg tablet [generic] TAKE 2 TABS (650MG) BY MOUTH EVERY 4 HOURS NEEDED FOR TEMP >100 NOT TO EXCEED 3GM/24HRS TAKE 2 TABS (650MG) BY MOUTH EVERY 4 HOURS NEEDED FOR TEMP >100 NOT TO EXCEED 3GM/24HRS For DX-FEVER 2 12/12 Inactiv e 2023 63701 28356 0 By Mouth False MILK OF MAGNESIA ADMINISTER 30 ML BY MOUTH ONCE DAILY NEEDED FOR CONSTIPATION X3 DAYS WITH NO BM. For DX- CONSTIPATION 30ML 12/12 Inactiv e 2023 27130 09133 9 By Mouth False Enema Disposable 19 gram-7 gram/118 mL ADMINISTER ONE ENEMA RECTALLY ONCE DAILY NEEDED FOR CONSTIPATION ON DAY 6 OF NO BM For DX- CONSTIPATION 12/12 Inactiv e 2023 44270 92809 1 Rectal False TUMS EXTRA STR 750MG TAKE (1) TABLET BY MOUTH THREE TIMES DAILY NEEDED FOR INDIGESTION For DX- INDIGESTION 1 12/12 Inactiv e 2023 19701 28339 8 By Mouth False Vitamin D3 25 [...] CONSTIPATION 10 mg 12/12 Inactiv e 2023 82185 42546 1 Rectal False Melatonin 3 mg tablet [generic] 3 mg By Mouth As Needed For DX-INSOMMIA 3 mg 12/12 Inactiv e 2023 99923 45553 8 By Mouth False Hydrocortis one 1 % topical cream [generic] 1 % Topical As Needed For DX- PAIN 1 % 12/12 Inactiv e 2023 08961 83855 1 Topica l False HYDROCORTIS ONE/PARMOXI NE [...] 5-10 50 mg 12/20 Inactiv e 2023 56284 28623 0 Every 4 hours as needed By Mouth False Tylenol 325 mg tablet 325 mg By Mouth Every 4 hours as needed For DX- PAIN PRN FOR MILD PAIN, DO NOT EXCEED 3000MG APAP/24 HOURS 325 mg 12/20 Inactiv e 2023 51482 99529 0 Every 4 hours as needed By Mouth False Baclofen 20 mg tablet [generic] 20 mg By Mouth 4 times a day For MUSCLE SPASMS 20 mg 12/20 Inactiv e 2023 51231 58523 1 4 times a day By Mouth False Calcium citrate 250 mg tablet [generic] Once daily TAKE 4 TABLETS (1000MG) BY MOUTH For SUPPLEMENT 1000 MG 06/26 Inactiv e 2023 78012 89675 6 Once daily By Mouth False Dulcolax (bisacodyl) 10 mg rectal suppository 10 mg Rectal Once daily For CONSTIPATION *MAY HOLD FOR LOOSE STOOLS* 10 mg 2023 Active 2023 98072 85487 1 Once daily Rectal False Gabapentin 300 mg capsule [generic] 300 mg By Mouth 3 times a day For NEUROPATHY 300 mg 2023 Active 2023 95150 50783 4 3 times a day By Mouth False Potassium citrate ER 15 mEq (1,620 mg) tablet,exte nded release [generic] 15 mEq By Mouth 3 times a day For SUPPLEMENT/DI URETIC USE/HYPOCITRA URIA 15 mEq 06/11 Inactiv e 2023 54814 72742 1 3 times a day By Mouth False Potassium chloride ER 20 mEq tablet,exte nded release [generic] 20 mEq By Mouth 3 times a day *DO NOT CRUSH, CHEW OR BREAK* For SUPPLEMENT 20 mEq 12/18 Inactiv e 2023 26401 13161 1 3 times a day By Mouth False Tizanidine 4 mg tablet [generic] 4 mg By Mouth Once daily For MUSCLE SPASMS 4 mg 2023 Active 2023 96257 67932 0 Once daily By Mouth False Tylenol 325 mg tablet 2 tabs By Mouth Every 4 hours as needed For Fever >100 DO NOT EXCEED 3000 MG APAP/24 Hours 2 tabs 12/20 Inactiv e 2023 24797 95104 0 Every 4 hours as needed By Mouth False Dulcolax (bisacodyl) 10 mg rectal suppository Daily as needed For Constipation 1 sup 12/20 Inactiv e 2023 69952 39805 1 Daily as needed Rectal False Fleet Enema 19 gram-7 gram/118 mL 1 Rectal Daily as neededFor Constipation 1 12/20 Inactiv e 2023 87025 64117 6 Daily as needed Rectal False Milk of Magnesia 400 mg/5 mL oral suspension [Magnesium hydroxide] PRN 30ml By Mouth Daily as needed for constipation one time daily if no BM, on day 4 of no BM (PRN refer to instructions) For Constipation For Constipatioin 30ml 12/20 Inactiv e 2023 01503 89390 6 1 time By Mouth False Melatonin 3 mg tablet [generic] 3 mg By Mouth Once daily As Needed For INSOMNIA 3 mg 12/20 Inactiv e 2023 91024 03910 8 Once daily By Mouth False Hydrocortis one 1 % topical cream [generic] 1 % Rectal Four times daily as needed For hemorroid pain 1 % 12/20 Inactiv e 2023 30448 73573 1 Four times daily as needed Rectal False X-STGH ANTACID 750MG CHEW TAKE (1) TABLET BY MOUTH THREE TIMES DAILY NEEDED FOR INDIGESTION 12/20 Inactiv e 2023 82152 60021 4 Three times daily as needed Saline Mist 0.65 % nasal spray aerosol 0.65 % Nares Four times daily as needed For DRYNESS 0.65 % 12/20 Inactiv e 2023 84549 78463 8 Four times daily as needed Nares False Vicks Vaporub 4.7 %-1.2 %-2.6 % topical ointment Apply topically to chest Three times daily as needed For CONGESTION 4.7-1.2 -2.6 12/20 Inactiv e 2023 03574 88875 1 Three times daily as needed Topica l False VITAMIN D3 2000U CAP TAKE ONE (1) CAPSULE BY MOUTH DAILY* DO NOT CRUSH, CHEW OR BREAK* For Supplement 1 capsule 12/19 Inactiv e 2023 85689 81398 0 Once daily By Mouth False Potassium chloride ER 20 mEq tablet,exte nded release(par t/cryst) [generic] TAKE (1) TABLET BY MOUTH THREE TIMES DAILY (MORNING, AFTERNOON, EVENING)*DO NOT CRUSH, CHEW, OR BREAK* For SUPPLEMENT 20 MEQ 06/11 Inactiv e 2023 32105 02563 5 3 times a day By Mouth False Aspirin 81 mg tablet,camron yed release [generic] TAKE ONE (1) TABLET BY MOUTH ONCE DAILY*DO NOT CRUSH, CHEW OR BREAK* For CAD 81 MG 12/22 Inactiv e 2023 22028 72191 0 Once daily By Mouth False Furosemide 20 mg tablet [generic] TAKE 1 AND 1/2 TABLETS (30MG) BY MOUTH ONCE DAILY For CHF 30mg 2023 Active 2023 81731 82541 1 Once daily By Mouth False Polyethylen e glycol 3350 17 gram/dose oral powder [generic] MIX 17 GRAMS (1 CAPFUL) IN 60Z OF LIQUID AND DRINK BY MOUTH ONCE DAILY *HOLD FOR LOOSE STOOLS* For constipation 17 g 2023 Active 2023 84401 13005 3 Once daily By Mouth False Vitamin D3 50 mcg (2,000 unit) capsule Once daily TAKE ONE (1) CAPSULE BY MOUTH DAILY* DO NOT CRUSH, CHEW OR BREAK* For Supplement 1 capsule 02/07 Inactiv e 2023 74625 22867 2 Once daily By Mouth False Fleet Enema 19 gram-7 gram/118 mL 1 Rectal Daily as neededFor Constipation 1 2023 0000 Active 2023 31185 34142 6 Daily as needed Rectal False Tums E-X 300 mg (as calcium carbonate 750 mg) chewable tablet 1 tab By Mouth TAKE (1) TABLET BY MOUTH THREE TIMES DAILY NEEDED FOR INDIGESTION 1 tab 202300 /0000 Active 2023 59150 00558 1 Three times daily as needed By Mouth False Tylenol 325 mg tablet 2 tabs By Mouth Every 4 hours as needed For Fever >100 DO NOT EXCEED 3000 MG APAP/24 Hours 2 tabs 202300 /0000 Active 2023 46440 21589 0 Every 4 hours as needed By Mouth False Vicks Vaporub 4.7 %-1.2 %-2.6 % topical ointment Apply topically to chest Three times daily as needed For CONGESTION topical 202300 Active 2023 28481 02987 1 Three times daily as needed Topica l False Tylenol 325 mg tablet 2 tabs By Mouth Every 4 hours as needed For DX- PAIN PRN FOR MILD PAIN, DO NOT EXCEED 3000MG APAP/24 HOURS 2 tabs 202300 Active 2023 06619 35178 0 Every 4 hours as needed By Mouth False Tramadol 50 mg tablet [generic] 1 tab By Mouth Every 4 hours as needed For DX- PAIN 5-10 1 tab 03/10 Inactiv e 2023 46776 80288 0 Every 4 hours as needed By Mouth False Saline Mist 0.65 % nasal spray aerosol 2 sprays Nares Four times daily as needed For DRYNESS 2 sprays 202300 / Active 2023 19913 26000 8 Four times daily as needed Nares False Dulcolax (bisacodyl) 10 mg rectal suppository Daily as needed For Constipation 1 sup 202300 / Active 2023 25158 80923 1 Daily as needed Rectal False Hydrocortis one-pramoxi ne 1 %-1 % rectal cream [generic] 1 mague Rectal Four times daily as needed For hemorroid pain 1 mague 202300 /0000 Active 2023 28703 13376 4 Four times daily as needed Rectal False Melatonin 3 mg tablet [generic] 1 tab By Mouth At bedtime as needed For INSOMNIA 1 tab 12/24 Inactiv e 2023 94389 21562 8 At bedtime as needed By Mouth False Milk of Magnesia 400 mg/5 mL oral suspension 30ml By Mouth Daily as needed Daily as needed for constipation one time daily if no BM, on day 4 of no BM (PRN refer to instructions) For Constipation For Constipatioin 30ml 2023 Active 2023 31590 22902 2 Daily as needed By Mouth False Baclofen 20 mg tablet [generic] 20 mg By Mouth 4 times a day For MUSCLE SPASMS 20 mg 2023 Active 2023 23095 02567 1 4 times a day By Mouth False Melatonin 3 mg tablet [generic] 1 tab By Mouth At bedtime as needed For INSOMNIA 1 tab 2023 Active 2023 74812 69910 8 At bedtime as needed By Mouth False Bactrim DS 800 mg-160 mg tablet 1 tab By Mouth Twice daily For URINARY TRACT INFECTION, SITE NOT SPECIFIED 1 tab 01/06 Inactiv e 2023 01861 83658 1 Twice daily By Mouth N39.0 False Cefdinir 300 mg capsule [generic] 300 mg By Mouth Twice daily For UTI 300 mg 01/07 Inactiv e 2023 55926 83806 0 Twice daily By Mouth False Cefdinir 300 mg capsule [generic] 300 mg By Mouth Twice daily For UTI 300 mg 01/17 Inactiv e 2023 05866 42034 0 Twice daily By Mouth False Zyrtec 10 mg tablet 10 mg By Mouth Once daily For sinus congestion 10 mg 01/22 Inactiv e 2023 78618 07599 0 Once daily By Mouth False Tobramycin 0.3 %-dexametha sone 0.1 % eye drops,suspe nsion [generic] 0.3-0.1 % Left Eye 4 times a day For eye infection 0.3-0.1 % 02/05 Inactiv e 2023 47847 82399 5 4 times a day Left Eye False Fluconazole 150 mg tablet [generic] 150 mg By Mouth 1 time For yeast infection 150 mg 02/15 Inactiv e 2023 81076 26629 2 1 time By Mouth False Tramadol 50 mg tablet [generic] 1 tab By Mouth Every 4 hours as needed For DX- PAIN 5-10 1 tab 2023 00/00 /0000 Active 2023 74717 44179 0 Every 4 hours as needed By Mouth False Tobramycin 0.3 %-dexametha sone 0.1 % eye drops,suspe nsion [generic] 1 drop Left Eye 4 times a day For Inflammation of left eye 1 drop 05/08 Inactiv e 2023 34342 48670 5 4 times a day Left Eye False Voltaren Arthritis Pain 1 % topical gel 2 gm Topical Twice daily to rigth shoulder for 2 weeks For pain 2 gm 05/08 Inactiv e 2023 35778 32054 1 Twice daily Topica l False Chlorthalid one 25 mg tablet [generic] 12.5mg By Mouth Once daily For HTN 12.5mg 05/06 Inactiv e 2023 57677 19760 0 Once daily By Mouth False Chlorthalid one 25 mg tablet [generic] 12.5mg By Mouth Once daily For HTN 12.5mg 05/07 Inactiv e 2023 66627 74838 0 Once daily By Mouth False Chlorthalid one 25 mg tablet [generic] 05/07 Inactiv e 2023 69962 04477 0 Chlorthalid one 25 mg tablet [generic] 12.5mg By Mouth Once daily For HTN 12.5mg 06/26 Inactiv e 2023 38794 24880 0 Once daily By Mouth False Norvasc 5 mg tablet 5mg By Mouth Once daily, hold medication if systolic is less than 90 For HYPERTENSIVE HEART DISEASE WITHOUT HEART FAILURE 5mg 06/03 Inactiv e 2023 93119 82387 1 Once daily By Mouth I11.9 False Norvasc 5 mg tablet 5mg By Mouth Once daily, hold medication if systolic is less than 90 For HYPERTENSIVE HEART DISEASE WITHOUT HEART FAILURE 5mg 06/03 Inactiv e 2023 64469 03957 1 Once daily By Mouth I11.9 False Norvasc 5 mg tablet 5mg By Mouth Once daily, hold medication if systolic is less than 90 For HYPERTENSIVE HEART DISEASE WITHOUT HEART FAILURE 5mg 06/26 Inactiv e 2023 81595 59523 1 Once daily By Mouth I11.9 False [...] 10 mg 2023 00/00 /0000 Active 2023 29013 96623 1 Once daily By Mouth False DISCONTINUE [...] CAD 81 mg 06/14 Inactiv e 2023 09464 02511 9 Once daily By Mouth False Aspirin 81 mg tablet,camron yed release [generic] 06/14 Inactiv e 2023 24122 81477 9 Aspirin 81 mg tablet,camron yed release [generic] 81 mg By Mouth Once daily Do not crush, chew, or break For CAD 81 mg 06/154 Inactiv e 2023 41130 82965 9 Once daily By Mouth False Cefpodoxime 200 mg tablet [generic] 200mg By Mouth Twice daily For UTI 200mg 07/04 Inactiv e 2023 16078 04030 0 Twice daily By Mouth False Calcium citrate 250 mg tablet [generic] 06/26 Inactiv e 2023 54415 21155 6 Calcium citrate 250 mg tablet [generic] Once daily TAKE 4 TABLETS (1000MG) BY MOUTH For SUPPLEMENT 500 MG 2023 Active 2023 62225 06086 6 Once daily By Mouth False Norvasc 5 mg tablet 7.5 mg By Mouth Once daily Hold medication if SBP <90 For HYPERTENSIVE HEART DISEASE WITHOUT HEART FAILURE 7.5 mg 06/30 Inactiv e 2023 25263 30850 1 Once daily By Mouth I11.9 False Norvasc 5 mg tablet 7.5 mg By Mouth Once daily Hold medication if SBP <90 For HYPERTENSIVE HEART DISEASE WITHOUT HEART FAILURE 7.5 mg 07/06 Inactiv e 2023 85241 85117 1 Once daily By Mouth I11.9 False Simethicone 125 mg capsule [generic] 2 capule By Mouth Twice daily as needed For bloating/gas pain 2 capule 2023 Active 2023 10493 57015 0 Twice daily as needed By Mouth False Cepacol Sore Throat (benzocaine -menthol) 15 mg-2.6 mg lozenges 2 lozenges By Mouth Every 6 hours as needed For sore throat 2 lozenge s 2023 Active 2023 46720 58451 6 Every 6 hours as needed By Mouth False Cefepime 1 gram solution for injection [generic] 1g Intramuscular Every 12 hours 1g intramuscular ly ever 12 hours For UTI 1g 07/06 Inactiv e 2023 57149 69182 4 Every 12 hours Intram uscula r False Cefepime 1 gram solution for injection [generic] 07/06 Inactiv e 2023 92764 86354 4 Cefepime 1 gram solution for injection [generic] 1g Intramuscular Every 12 hours 1g intramuscular ly ever 12 hours For UTI Reconstitute with 2.4 ML of NSS. 1g 07/08 Inactiv e 2023 52844 58487 4 Every 12 hours Intram uscula r False Norvasc 5 mg tablet 07/06 Inactiv e 2023 68488 53338 1 I11.9 Norvasc 5 mg tablet 7.5 mg By Mouth Once daily Hold medication if SBP <90 For HYPERTENSIVE HEART DISEASE WITHOUT HEART FAILURE 7.5 mg 07/18 Inactiv e 2023 87860 01540 1 Once daily By Mouth I11.9 False Cefepime 1 gram solution for injection [generic] 07/08 Inactiv e 2023 74196 77993 4 Cefepime 1 gram solution for injection [generic] 1g Intramuscular Every 12 hours 1g intramuscular ly ever 12 hours For UTI Reconstitute with 2.4 ML of NSS. 1g 07/08 Inactiv e 2023 36546 71687 4 Every 12 hours Intram uscula r False Cefepime 1 gram solution for injection [generic] 07/08 Inactiv e 2023 68315 47115 4 Cefepime 1 gram solution for injection [generic] 1g Intramuscular Every 12 hours 1g intramuscular ly ever 12 hours For UTI Reconstitute with 2.4 ML of NSS. 1g 07/11 Inactiv e 2023 15404 56528 4 Every 12 hours Intram uscula r False Fleet Enema 19 gram-7 gram/118 mL 1 Rectal 1 time For constipation 1 07/16 Inactiv e 2024 39674 10721 6 1 time Rectal False Fleet Enema 19 gram-7 gram/118 mL 1 Rectal 1 time For constipation 1 07/17 Inactiv e 2024 43592 47016 6 1 time Rectal False Norvasc 5 mg tablet 7.5 mg By Mouth Once daily For HYPERTENSIVE HEART DISEASE WITHOUT HEART FAILURE 7.5 mg 2024 00/00 /0000 Active 2024 24986 93866 1 Once daily By Mouth I11.9 False Potassium chloride ER 20 mEq tablet,exte nded release(par t/cryst) [generic] 40 mEq By Mouth 1 time For low potassium prior to surgery 40 mEq 07/18 Inactiv e 2024 48449 91971 1 1 time By Mouth False Potassium chloride ER 20 mEq tablet,exte nded release(par t/cryst) [generic] 40 mEq By Mouth 1 time For low potassium prior to surgery 40 mEq 07/18 Inactiv e 2024 50959 51758 1 1 time By Mouth False Potassium chloride ER 20 mEq tablet,exte nded release(par t/cryst) [generic] 40 mEq By Mouth 1 time For low potassium 40 mEq 07/18 Inactiv e 2024 65603 87024 1 1 time By Mouth False Potassium chloride ER 20 mEq tablet,exte nded release(par t/cryst) [generic] 40 mEq By Mouth 1 time For low potassium 40 mEq 07/18 Inactiv e 2024 26425 53571 1 1 time By Mouth False Potassium chloride ER 20 mEq tablet,exte nded release [generic] 2 By Mouth 1 time For low potassium 2 07/19 Inactiv e 2024 15015 43343 1 1 time By Mouth False Potassium chloride ER 20 mEq tablet,exte nded release [generic] 2 capsules capsules By Mouth 1 time Please send capsule (2 capsules) For low potassium 2 capsule s 07/20 Active 2024 80992 75554 1 1 time By Mouth False Nystatin 100,000 unit/gram topical cream [generic] 100,000 unit Topical As Needed For DX- EXCORIATION 100,000 unit 12/12 Inactiv e 2023 90436 93544 5 Topica l False Vicks Vaporub 4.7 %-1.2 %-2.6 % topical ointment 4.7-1.2-2.6 Topical 3 times a day As Needed For DX- CONGESTION 4.7-1.2 -2.6 12/12 Inactiv e 2023 28619 71227 1 3 times a day Topica l False Ketoconazol e 2 % shampoo [generic] APPLY SHAMPOO TOPICALLY TO SCALP DURING HAIR WASHINGDX: ELVIA DERM OF SCALP For DX- ELVIA DERM OF SCALP 12/12 Inactiv e 2023 97556 05643 4 Topica l False THERA SILICONE SKIN GUARD Topical Twice daily 1 APPLICATION TOPICALLY IN THE MORNING AND AT BEDTIME TO SCROTUM For DX- PREVENTION 2023 0000 0000 Active 2023 Twice daily Topica l False Selenium sulfide 2.5 % lotion [generic] 2.5 % Topical EVERY MONDAY, MONDAY AND MONDAY AFTER SHOWER For DANDRUFF 2.5 % 202300 /0000 Active 2023 46432 24464 4 3 times a week Topica l False Nystatin (bulk) 100 million unit powder [generic] 100 million Topical Twice daily as needed For EXOCORATION 100 million 12/20 Inactiv e 2023 77009 79884 1 Twice daily as needed Topica l False Ketoconazol e 2 % shampoo [generic] Once daily APPLY SHAMPOO TOPICALLY TO SCALP DURING HAIR WASHING ON SHOWER DAYS- , , MON For ELVIA DERM OF SCAP 2 % 2023 0000 /0000 Active 2023 16447 76368 4 Once daily Topica l False Nystatin 100,000 unit/gram topical cream [generic] 1 mague Topical Twice daily as needed For EXOCORATION 1 mague 06/05 Inactiv e 2023 01793 07299 5 Twice daily as needed Topica l False Nystatin 100,000 unit/gram topical powder [generic] 100,000 unit Topical Twice daily to scrotum with AM and PM care For Scrotal excoriation 100,000 unit 06/05 Inactiv e 2023 69606 86368 5 Twice daily Topica l False Problems [...] adjustment of urinary device 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 07/21 Active [...] weight Temperature SpO2 Blood Sugar Pulse Respirations 02024 211 04964 5 78.00 mm[Hg] - Sitting 125.00 mm[Hg] - Sitting 33051 216 48192 1 254.10 NI 66371 216 49627 2 79.00 mm[Hg] - Sitting 157.00 mm[Hg] - Sitting 73 NI 254.10 NI 36.30 Tympanic 95.00 % 72.00/ min 16.00/min 81004 216 93591 4 98.80 Tympanic 18380 216 42435 2 78.00 mm[Hg] - Sitting 164.00 mm[Hg] - Sitting 25335 217 95652 3 98.20 Tympanic 58094 217 65177 5 73.00 mm[Hg] - Sitting 159.00 mm[Hg] - Sitting 56616 217 55507 9 98.40 Forehead Scan 41055 218 34163 3 97.90 Tympanic 99855 218 57269 5 77.00 mm[Hg] - Sitting 137.00 mm[Hg] - Sitting 09860 219 55431 0 97.70 Tympanic 86282 219 77342 6 97.60 Tympanic 41892 219 45998 4 76.00 mm[Hg] - Sitting 139.00 mm[Hg] - Sitting 43141 219 23562 4 97.80 Forehead Scan 02057 220 61426 9 97.90 Tympanic 13449 220 76452 9 76.00 mm[Hg] - Sitting 138.00 mm[Hg] - Sitting 98793 220 28018 6 98.10 Tympanic 05541 221 32766 5 67.00 mm[Hg] - Sitting 142.00 mm[Hg] - Sitting 72387 221 84577 8 98.20 Tympanic 70566 221 80291 0 98.30 Tympanic 61979 222 11415 7 98.20 Tympanic 16476 222 83621 8 97.90 Tympanic 53434 223 71824 3 98.20 Tympanic 85168 223 01374 3 98.00 Tympanic 20875 224 63233 0 59.00 mm[Hg] - Sitting 111.00 mm[Hg] - Sitting 98.40 Forehead Scan 95.00 % 56.00/ min 18.00/min 44852 224 47752 9 98.20 Forehead Scan 31259 224 17225 3 97.90 Tympanic 78327 225 99531 4 98.20 Tympanic 85567 225 59736 8 97.50 Forehead Scan 94467 228 06282 0 55.00 mm[Hg] - Sitting 118.00 mm[Hg] - Sitting 98.40 Tympanic 69.00/ min 79883 229 44044 8 78.00 mm[Hg] - Sitting 152.00 mm[Hg] - Sitting 33031 230 58416 0 62.00 mm[Hg] - Sitting 122.00 mm[Hg] - Sitting 57154 231 02552 7 72.00 mm[Hg] - Lying Down 140.00 mm[Hg] - Lying Down 00612 101 33704 3 97.70 Forehead Scan 04274 101 08150 1 254.10 NI 69.00/ min 00943 101 03793 9 72.00 mm[Hg] - Sitting 142.00 mm[Hg] - Sitting 97.70 Tympanic 18.00/min 78857 101 33822 3 72.00 mm[Hg] - Lying Down 142.00 mm[Hg] - Lying Down 08309 102 95856 8 68.00 mm[Hg] - Lying Down 152.00 mm[Hg] - Lying Down 12540 103 92138 5 74.00 mm[Hg] - Sitting 158.00 mm[Hg] - Sitting 45013 104 29452 9 78.00 mm[Hg] - Sitting 144.00 mm[Hg] - Sitting 17461 105 38974 5 68.00 mm[Hg] - Sitting 138.00 mm[Hg] - Sitting 87858 106 30373 1 70.00 mm[Hg] - Sitting 138.00 mm[Hg] - Sitting 07322 107 86002 1 67.00 mm[Hg] - Sitting 142.00 mm[Hg] - Sitting 93437 108 10440 0 74.00 mm[Hg] - Sitting 143.00 mm[Hg] [...]
--- OUTSIDE RECORDS SUMMARY | 2024-07-26 11:16 | External Medical Summary | Continuity Of Care Document ---
Author Name Unknown Address [address] [place] [address] Organization [facility] () Care Team Providers Care Boiler Control Technician Name Role Phone DO Pritchett Amy Primary Care Provider [phone] Allergies Allergy Reaction Start Date End Date Status AMINOGLYCOSIDES Active CIPRO Active GENTAMICIN Active NSAIDS (NON-STEROIDAL ANTI-INFLAMMATORY DRUG) 0 Active IBUPROFEN Active QUINOLONES Active VALIUM Active Medications Medication Instructions Dosage Start Date End Date Status Order Date Drug Code Frequency Route of Admin Diagnosis Code Substitutions Allowed Spikevax [id number](1 2y up)(PF) 50 mcg/0.5 mL intramuscul ar suspension [COVID [id number](12 up)(andu)(P F)] 0.5mL Intramuscular 1 time Monitory 15 Minutes post injection for adverse effects; record site/temp For COVID 19 PREVENTION 0.5mL 01/02 Inactiv e 2023 61833 55401 4 1 time Intram uscula r False [facility] - Nurse initials indicate verificatio n that [id number] vaccine was administere d by [facility] Representat jon 1 Intramuscular 1 time ( Indicate vaccine type) For vaccine 1 05/03 Inactiv e 2023 1 time Intram uscula r False Lisinopril 40 mg tablet [generic] TAKE ONE (1) TABLET BY MOUTH IN THE MORNING. For DX- HTN 1 2023 Active 2023 13632 01459 1 Once daily By Mouth False Tizanidine 2 mg tablet [generic] TAKE ONE (1) TABLET BY MOUTH ONCE DAILY For MUSCLE SPASM 1 2023 Active 2023 71788 94342 0 Once daily By Mouth M62.838 False Tamsulosin 0.4 mg capsule [generic] TAKE (1) CAPSULE BY MOUTH AT BEDTIME For SPASMS 1 2023 Active 2023 63558 09826 0 Once daily By Mouth False Aspirin 81 mg tablet Once daily 1 TABLET BY MOUTH IN THE MORNING For DX- CAD DO NOT CRUSH, CHEW OR BREAK 81 mg 06/12 Inactiv e 2023 Once daily By Mouth False Baclofen 20 mg tablet [generic] 20 mg By Mouth 4 times a day For DX- MUSCLE SPASMS 20 mg 12/12 Inactiv e 2023 40047 16593 1 4 times a day By Mouth False Calcium citrate 250 mg tablet Once daily 4 TABLET BY MOUTH For DX- SUPPLEMENT 250 mg calci 12/12 Inactiv e 2023 Once daily By Mouth False Co Q-10 100 mg capsule 100 mg By Mouth Once daily For DX- SUPPLEMENT 100 mg 06/20 Inactiv e 2023 40609 49610 5 Once daily By Mouth False Furosemide 20 mg tablet [generic] 20 mg By Mouth Once daily For DX-CHF 20 mg 12/12 Inactiv e 2023 65115 49448 0 Once daily By Mouth False Gabapentin 300 mg capsule [generic] 300 mg By Mouth 3 times a day For DX- NEUROPATHY 300 mg 12/12 Inactiv e 2023 09775 50375 4 3 times a day By Mouth False Loratadine 10 mg tablet [generic] 10 mg By Mouth Once daily For DX- ALLERGIES 10 mg 2023 Active 2023 93246 05746 1 Once daily By Mouth False Miralax 17 gram/dose oral powder 17 gram/dose By Mouth IN THE MORNING Mix 1 TABLESPOON IN 8 OZ OF FLUID HOLD FOR LOOSE STOOLS For DX- CONSTIPATION 17 gram/do se 12/12 Inactiv e 2023 10804 33866 0 Once daily By Mouth False Paroxetine 30 mg tablet [generic] 30 mg By Mouth Once daily For DX- DEPRESSION 30 mg 2023 00/00 /0000 Active 2023 93221 52917 3 Once daily By Mouth False Potassium citrate ER 15 mEq (1,620 mg) tablet,exte nded release [generic] 15 mEq By Mouth 3 times a day For DX- SUPPLEMENT/DI URETIC USE/ HYPOCITRAUIRA DO NOT CRUSH 15 mEq 12/12 Inactiv e 2023 79761 70293 1 3 times a day By Mouth [...] For DX- DANDRUFF 12/12 Inactiv e 2023 50711 73473 4 3 times a week Topica l False Acetaminoph en 325 mg tablet [generic] TAKE 2 TABS (650MG) BY MOUTH EVERY 4 HOURS NEEDED FOR TEMP >100 NOT TO EXCEED 3GM/24HRS TAKE 2 TABS (650MG) BY MOUTH EVERY 4 HOURS NEEDED FOR TEMP >100 NOT TO EXCEED 3GM/24HRS For DX-FEVER 2 12/12 Inactiv e 2023 59175 01546 0 By Mouth False MILK OF MAGNESIA ADMINISTER 30 ML BY MOUTH ONCE DAILY NEEDED FOR CONSTIPATION X3 DAYS WITH NO BM. For DX- CONSTIPATION 30ML 12/12 Inactiv e 2023 04389 21497 9 By Mouth False Enema Disposable 19 gram-7 gram/118 mL ADMINISTER ONE ENEMA RECTALLY ONCE DAILY NEEDED FOR CONSTIPATION ON DAY 6 OF NO BM For DX- CONSTIPATION 12/12 Inactiv e 2023 21413 26658 1 Rectal False TUMS EXTRA STR 750MG TAKE (1) TABLET BY MOUTH THREE TIMES DAILY NEEDED FOR INDIGESTION For DX- INDIGESTION 1 12/12 Inactiv e 2023 34118 71066 8 By Mouth False Vitamin D3 25 [...] CONSTIPATION 10 mg 12/12 Inactiv e 2023 05929 23779 1 Rectal False Melatonin 3 mg tablet [generic] 3 mg By Mouth As Needed For DX-INSOMMIA 3 mg 12/12 Inactiv e 2023 89426 65209 8 By Mouth False Hydrocortis one 1 % topical cream [generic] 1 % Topical As Needed For DX- PAIN 1 % 12/12 Inactiv e 2023 95402 59409 1 Topica l False HYDROCORTIS ONE/PARMOXI NE [...] 5-10 50 mg 12/20 Inactiv e 2023 41035 26041 0 Every 4 hours as needed By Mouth False Tylenol 325 mg tablet 325 mg By Mouth Every 4 hours as needed For DX- PAIN PRN FOR MILD PAIN, DO NOT EXCEED 3000MG APAP/24 HOURS 325 mg 12/20 Inactiv e 2023 50879 40405 0 Every 4 hours as needed By Mouth False Baclofen 20 mg tablet [generic] 20 mg By Mouth 4 times a day For MUSCLE SPASMS 20 mg 12/20 Inactiv e 2023 17794 87754 1 4 times a day By Mouth False Calcium citrate 250 mg tablet [generic] Once daily TAKE 4 TABLETS (1000MG) BY MOUTH For SUPPLEMENT 1000 MG 06/26 Inactiv e 2023 38293 94094 6 Once daily By Mouth False Dulcolax (bisacodyl) 10 mg rectal suppository 10 mg Rectal Once daily For CONSTIPATION *MAY HOLD FOR LOOSE STOOLS* 10 mg 2023 Active 2023 65021 13510 1 Once daily Rectal False Gabapentin 300 mg capsule [generic] 300 mg By Mouth 3 times a day For NEUROPATHY 300 mg 2023 Active 2023 49692 57765 4 3 times a day By Mouth False Potassium citrate ER 15 mEq (1,620 mg) tablet,exte nded release [generic] 15 mEq By Mouth 3 times a day For SUPPLEMENT/DI URETIC USE/HYPOCITRA URIA 15 mEq 06/11 Inactiv e 2023 37148 32490 1 3 times a day By Mouth False Potassium chloride ER 20 mEq tablet,exte nded release [generic] 20 mEq By Mouth 3 times a day *DO NOT CRUSH, CHEW OR BREAK* For SUPPLEMENT 20 mEq 12/18 Inactiv e 2023 84560 76166 1 3 times a day By Mouth False Tizanidine 4 mg tablet [generic] 4 mg By Mouth Once daily For MUSCLE SPASMS 4 mg 2023 Active 2023 52592 50429 0 Once daily By Mouth False Tylenol 325 mg tablet 2 tabs By Mouth Every 4 hours as needed For Fever >100 DO NOT EXCEED 3000 MG APAP/24 Hours 2 tabs 12/20 Inactiv e 2023 79704 35735 0 Every 4 hours as needed By Mouth False Dulcolax (bisacodyl) 10 mg rectal suppository Daily as needed For Constipation 1 sup 12/20 Inactiv e 2023 31667 14972 1 Daily as needed Rectal False Fleet Enema 19 gram-7 gram/118 mL 1 Rectal Daily as neededFor Constipation 1 12/20 Inactiv e 2023 47607 07376 6 Daily as needed Rectal False Milk of Magnesia 400 mg/5 mL oral suspension [Magnesium hydroxide] PRN 30ml By Mouth Daily as needed for constipation one time daily if no BM, on day 4 of no BM (PRN refer to instructions) For Constipation For Constipatioin 30ml 12/20 Inactiv e 2023 88992 72520 6 1 time By Mouth False Melatonin 3 mg tablet [generic] 3 mg By Mouth Once daily As Needed For INSOMNIA 3 mg 12/20 Inactiv e 2023 98230 22195 8 Once daily By Mouth False Hydrocortis one 1 % topical cream [generic] 1 % Rectal Four times daily as needed For hemorroid pain 1 % 12/20 Inactiv e 2023 29802 31477 1 Four times daily as needed Rectal False X-STGH ANTACID 750MG CHEW TAKE (1) TABLET BY MOUTH THREE TIMES DAILY NEEDED FOR INDIGESTION 12/20 Inactiv e 2023 95573 10436 4 Three times daily as needed Saline Mist 0.65 % nasal spray aerosol 0.65 % Nares Four times daily as needed For DRYNESS 0.65 % 12/20 Inactiv e 2023 59088 15370 8 Four times daily as needed Nares False Vicks Vaporub 4.7 %-1.2 %-2.6 % topical ointment Apply topically to chest Three times daily as needed For CONGESTION 4.7-1.2 -2.6 12/20 Inactiv e 2023 56684 19904 1 Three times daily as needed Topica l False VITAMIN D3 2000U CAP TAKE ONE (1) CAPSULE BY MOUTH DAILY* DO NOT CRUSH, CHEW OR BREAK* For Supplement 1 capsule 12/19 Inactiv e 2023 60036 43678 0 Once daily By Mouth False Potassium chloride ER 20 mEq tablet,exte nded release(par t/cryst) [generic] TAKE (1) TABLET BY MOUTH THREE TIMES DAILY (MORNING, AFTERNOON, EVENING)*DO NOT CRUSH, CHEW, OR BREAK* For SUPPLEMENT 20 MEQ 06/11 Inactiv e 2023 99397 09253 5 3 times a day By Mouth False Aspirin 81 mg tablet,camron yed release [generic] TAKE ONE (1) TABLET BY MOUTH ONCE DAILY*DO NOT CRUSH, CHEW OR BREAK* For CAD 81 MG 12/22 Inactiv e 2023 05818 53017 0 Once daily By Mouth False Furosemide 20 mg tablet [generic] TAKE 1 AND 1/2 TABLETS (30MG) BY MOUTH ONCE DAILY For CHF 30mg 2023 Active 2023 22275 23419 1 Once daily By Mouth False Polyethylen e glycol 3350 17 gram/dose oral powder [generic] MIX 17 GRAMS (1 CAPFUL) IN 60Z OF LIQUID AND DRINK BY MOUTH ONCE DAILY *HOLD FOR LOOSE STOOLS* For constipation 17 g 2023 Active 2023 35144 30840 3 Once daily By Mouth False Vitamin D3 50 mcg (2,000 unit) capsule Once daily TAKE ONE (1) CAPSULE BY MOUTH DAILY* DO NOT CRUSH, CHEW OR BREAK* For Supplement 1 capsule 02/07 Inactiv e 2023 82867 05793 2 Once daily By Mouth False Fleet Enema 19 gram-7 gram/118 mL 1 Rectal Daily as neededFor Constipation 1 2023 0000 Active 2023 38373 35120 6 Daily as needed Rectal False Tums E-X 300 mg (as calcium carbonate 750 mg) chewable tablet 1 tab By Mouth TAKE (1) TABLET BY MOUTH THREE TIMES DAILY NEEDED FOR INDIGESTION 1 tab 202300 /0000 Active 2023 98970 85250 1 Three times daily as needed By Mouth False Tylenol 325 mg tablet 2 tabs By Mouth Every 4 hours as needed For Fever >100 DO NOT EXCEED 3000 MG APAP/24 Hours 2 tabs 202300 /0000 Active 2023 27362 56877 0 Every 4 hours as needed By Mouth False Vicks Vaporub 4.7 %-1.2 %-2.6 % topical ointment Apply topically to chest Three times daily as needed For CONGESTION topical 202300 Active 2023 27539 25402 1 Three times daily as needed Topica l False Tylenol 325 mg tablet 2 tabs By Mouth Every 4 hours as needed For DX- PAIN PRN FOR MILD PAIN, DO NOT EXCEED 3000MG APAP/24 HOURS 2 tabs 202300 Active 2023 37253 16529 0 Every 4 hours as needed By Mouth False Tramadol 50 mg tablet [generic] 1 tab By Mouth Every 4 hours as needed For DX- PAIN 5-10 1 tab 03/10 Inactiv e 2023 55841 26217 0 Every 4 hours as needed By Mouth False Saline Mist 0.65 % nasal spray aerosol 2 sprays Nares Four times daily as needed For DRYNESS 2 sprays 202300 / Active 2023 33330 00387 8 Four times daily as needed Nares False Dulcolax (bisacodyl) 10 mg rectal suppository Daily as needed For Constipation 1 sup 202300 / Active 2023 78299 90743 1 Daily as needed Rectal False Hydrocortis one-pramoxi ne 1 %-1 % rectal cream [generic] 1 mague Rectal Four times daily as needed For hemorroid pain 1 mague 202300 /0000 Active 2023 51462 10192 4 Four times daily as needed Rectal False Melatonin 3 mg tablet [generic] 1 tab By Mouth At bedtime as needed For INSOMNIA 1 tab 12/24 Inactiv e 2023 38069 60261 8 At bedtime as needed By Mouth False Milk of Magnesia 400 mg/5 mL oral suspension 30ml By Mouth Daily as needed Daily as needed for constipation one time daily if no BM, on day 4 of no BM (PRN refer to instructions) For Constipation For Constipatioin 30ml 2023 Active 2023 63744 91854 2 Daily as needed By Mouth False Baclofen 20 mg tablet [generic] 20 mg By Mouth 4 times a day For MUSCLE SPASMS 20 mg 2023 Active 2023 29414 02179 1 4 times a day By Mouth False Melatonin 3 mg tablet [generic] 1 tab By Mouth At bedtime as needed For INSOMNIA 1 tab 2023 Active 2023 99203 83751 8 At bedtime as needed By Mouth False Bactrim DS 800 mg-160 mg tablet 1 tab By Mouth Twice daily For URINARY TRACT INFECTION, SITE NOT SPECIFIED 1 tab 01/06 Inactiv e 2023 20919 01049 1 Twice daily By Mouth N39.0 False Cefdinir 300 mg capsule [generic] 300 mg By Mouth Twice daily For UTI 300 mg 01/07 Inactiv e 2023 83989 99408 0 Twice daily By Mouth False Cefdinir 300 mg capsule [generic] 300 mg By Mouth Twice daily For UTI 300 mg 01/17 Inactiv e 2023 70654 06483 0 Twice daily By Mouth False Zyrtec 10 mg tablet 10 mg By Mouth Once daily For sinus congestion 10 mg 01/22 Inactiv e 2023 89965 66362 0 Once daily By Mouth False Tobramycin 0.3 %-dexametha sone 0.1 % eye drops,suspe nsion [generic] 0.3-0.1 % Left Eye 4 times a day For eye infection 0.3-0.1 % 02/05 Inactiv e 2023 01291 27352 5 4 times a day Left Eye False Fluconazole 150 mg tablet [generic] 150 mg By Mouth 1 time For yeast infection 150 mg 02/15 Inactiv e 2023 71650 43837 2 1 time By Mouth False Tramadol 50 mg tablet [generic] 1 tab By Mouth Every 4 hours as needed For DX- PAIN 5-10 1 tab 2023 00/00 /0000 Active 2023 12225 85055 0 Every 4 hours as needed By Mouth False Tobramycin 0.3 %-dexametha sone 0.1 % eye drops,suspe nsion [generic] 1 drop Left Eye 4 times a day For Inflammation of left eye 1 drop 05/08 Inactiv e 2023 72625 77416 5 4 times a day Left Eye False Voltaren Arthritis Pain 1 % topical gel 2 gm Topical Twice daily to rigth shoulder for 2 weeks For pain 2 gm 05/08 Inactiv e 2023 59354 32743 1 Twice daily Topica l False Chlorthalid one 25 mg tablet [generic] 12.5mg By Mouth Once daily For HTN 12.5mg 05/06 Inactiv e 2023 23283 72767 0 Once daily By Mouth False Chlorthalid one 25 mg tablet [generic] 12.5mg By Mouth Once daily For HTN 12.5mg 05/07 Inactiv e 2023 53654 24843 0 Once daily By Mouth False Chlorthalid one 25 mg tablet [generic] 05/07 Inactiv e 2023 66714 81462 0 Chlorthalid one 25 mg tablet [generic] 12.5mg By Mouth Once daily For HTN 12.5mg 06/26 Inactiv e 2023 76608 76677 0 Once daily By Mouth False Norvasc 5 mg tablet 5mg By Mouth Once daily, hold medication if systolic is less than 90 For HYPERTENSIVE HEART DISEASE WITHOUT HEART FAILURE 5mg 06/03 Inactiv e 2023 44989 82631 1 Once daily By Mouth I11.9 False Norvasc 5 mg tablet 5mg By Mouth Once daily, hold medication if systolic is less than 90 For HYPERTENSIVE HEART DISEASE WITHOUT HEART FAILURE 5mg 06/03 Inactiv e 2023 20246 74206 1 Once daily By Mouth I11.9 False Norvasc 5 mg tablet 5mg By Mouth Once daily, hold medication if systolic is less than 90 For HYPERTENSIVE HEART DISEASE WITHOUT HEART FAILURE 5mg 06/26 Inactiv e 2023 36666 49342 1 Once daily By Mouth I11.9 False [...] 10 mg 2023 00/00 /0000 Active 2023 62439 08136 1 Once daily By Mouth False DISCONTINUE [...] CAD 81 mg 06/14 Inactiv e 2023 82455 78051 9 Once daily By Mouth False Aspirin 81 mg tablet,camron yed release [generic] 06/14 Inactiv e 2023 92409 04371 9 Aspirin 81 mg tablet,camron yed release [generic] 81 mg By Mouth Once daily Do not crush, chew, or break For CAD 81 mg 06/154 Inactiv e 2023 51028 91137 9 Once daily By Mouth False Cefpodoxime 200 mg tablet [generic] 200mg By Mouth Twice daily For UTI 200mg 07/04 Inactiv e 2023 33795 76956 0 Twice daily By Mouth False Calcium citrate 250 mg tablet [generic] 06/26 Inactiv e 2023 83930 24287 6 Calcium citrate 250 mg tablet [generic] Once daily TAKE 4 TABLETS (1000MG) BY MOUTH For SUPPLEMENT 500 MG 2023 Active 2023 84911 14353 6 Once daily By Mouth False Norvasc 5 mg tablet 7.5 mg By Mouth Once daily Hold medication if SBP <90 For HYPERTENSIVE HEART DISEASE WITHOUT HEART FAILURE 7.5 mg 06/30 Inactiv e 2023 24665 41359 1 Once daily By Mouth I11.9 False Norvasc 5 mg tablet 7.5 mg By Mouth Once daily Hold medication if SBP <90 For HYPERTENSIVE HEART DISEASE WITHOUT HEART FAILURE 7.5 mg 07/06 Inactiv e 2023 22078 89663 1 Once daily By Mouth I11.9 False Simethicone 125 mg capsule [generic] 2 capule By Mouth Twice daily as needed For bloating/gas pain 2 capule 2023 Active 2023 59426 63877 0 Twice daily as needed By Mouth False Cepacol Sore Throat (benzocaine -menthol) 15 mg-2.6 mg lozenges 2 lozenges By Mouth Every 6 hours as needed For sore throat 2 lozenge s 2023 Active 2023 14060 57450 6 Every 6 hours as needed By Mouth False Cefepime 1 gram solution for injection [generic] 1g Intramuscular Every 12 hours 1g intramuscular ly ever 12 hours For UTI 1g 07/06 Inactiv e 2023 65557 39780 4 Every 12 hours Intram uscula r False Cefepime 1 gram solution for injection [generic] 07/06 Inactiv e 2023 76690 16574 4 Cefepime 1 gram solution for injection [generic] 1g Intramuscular Every 12 hours 1g intramuscular ly ever 12 hours For UTI Reconstitute with 2.4 ML of NSS. 1g 07/08 Inactiv e 2023 34750 94083 4 Every 12 hours Intram uscula r False Norvasc 5 mg tablet 07/06 Inactiv e 2023 47917 60652 1 I11.9 Norvasc 5 mg tablet 7.5 mg By Mouth Once daily Hold medication if SBP <90 For HYPERTENSIVE HEART DISEASE WITHOUT HEART FAILURE 7.5 mg 07/18 Inactiv e 2023 41324 34040 1 Once daily By Mouth I11.9 False Cefepime 1 gram solution for injection [generic] 07/08 Inactiv e 2023 75772 29263 4 Cefepime 1 gram solution for injection [generic] 1g Intramuscular Every 12 hours 1g intramuscular ly ever 12 hours For UTI Reconstitute with 2.4 ML of NSS. 1g 07/08 Inactiv e 2023 41552 78074 4 Every 12 hours Intram uscula r False Cefepime 1 gram solution for injection [generic] 07/08 Inactiv e 2023 25540 97391 4 Cefepime 1 gram solution for injection [generic] 1g Intramuscular Every 12 hours 1g intramuscular ly ever 12 hours For UTI Reconstitute with 2.4 ML of NSS. 1g 07/11 Inactiv e 2023 63987 24579 4 Every 12 hours Intram uscula r False Fleet Enema 19 gram-7 gram/118 mL 1 Rectal 1 time For constipation 1 07/16 Inactiv e 2024 38774 74695 6 1 time Rectal False Fleet Enema 19 gram-7 gram/118 mL 1 Rectal 1 time For constipation 1 07/17 Inactiv e 2024 06559 03914 6 1 time Rectal False Norvasc 5 mg tablet 7.5 mg By Mouth Once daily For HYPERTENSIVE HEART DISEASE WITHOUT HEART FAILURE 7.5 mg 2024 0000 /0000 Active 2024 21733 44791 1 Once daily By Mouth I11.9 False Potassium chloride ER 20 mEq tablet,exte nded release(par t/cryst) [generic] 40 mEq By Mouth 1 time For low potassium prior to surgery 40 mEq 07/18 Inactiv e 2024 46265 88942 1 1 time By Mouth False Potassium chloride ER 20 mEq tablet,exte nded release(par t/cryst) [generic] 40 mEq By Mouth 1 time For low potassium prior to surgery 40 mEq 07/18 Inactiv e 2024 81144 87645 1 1 time By Mouth False Potassium chloride ER 20 mEq tablet,exte nded release(par t/cryst) [generic] 40 mEq By Mouth 1 time For low potassium 40 mEq 07/18 Inactiv e 2024 78384 67096 1 1 time By Mouth False Potassium chloride ER 20 mEq tablet,exte nded release(par t/cryst) [generic] 40 mEq By Mouth 1 time For low potassium 40 mEq 07/18 Inactiv e 2024 66878 64221 1 1 time By Mouth False Potassium chloride ER 20 mEq tablet,exte nded release [generic] 2 By Mouth 1 time For low potassium 2 07/19 Active 2024 52266 16100 1 1 time By Mouth False Potassium chloride ER 20 mEq tablet,exte nded release [generic] 2 capsules capsules By Mouth 1 time Please send capsule (2 capsules) For low potassium 2 capsule s 07/20 Active 2024 36813 17466 1 1 time By Mouth False Nystatin 100,000 unit/gram topical cream [generic] 100,000 unit Topical As Needed For DX- EXCORIATION 100,000 unit 12/12 Inactiv e 2023 59164 34882 5 Topica l False Vicks Vaporub 4.7 %-1.2 %-2.6 % topical ointment 4.7-1.2-2.6 Topical 3 times a day As Needed For DX- CONGESTION 4.7-1.2 -2.6 12/12 Inactiv e 2023 28584 62211 1 3 times a day Topica l False Ketoconazol e 2 % shampoo [generic] APPLY SHAMPOO TOPICALLY TO SCALP DURING HAIR WASHINGDX: ELVIA DERM OF SCALP For DX- ELVIA DERM OF SCALP 12/12 Inactiv e 2023 57900 50141 4 Topica l False THERA SILICONE SKIN GUARD Topical Twice daily 1 APPLICATION TOPICALLY IN THE MORNING AND AT BEDTIME TO SCROTUM For DX- PREVENTION 2023 0000 0000 Active 2023 Twice daily Topica l False Selenium sulfide 2.5 % lotion [generic] 2.5 % Topical EVERY MONDAY, MONDAY AND MONDAY AFTER SHOWER For DANDRUFF 2.5 % 2023 0000 /0000 Active 2023 53788 47353 4 3 times a week Topica l False Nystatin (bulk) 100 million unit powder [generic] 100 million Topical Twice daily as needed For EXOCORATION 100 million 12/20 Inactiv e 2023 60375 72267 1 Twice daily as needed Topica l False Ketoconazol e 2 % shampoo [generic] Once daily APPLY SHAMPOO TOPICALLY TO SCALP DURING HAIR WASHING ON SHOWER DAYS- , , MON For ELVIA DERM OF SCAP 2 % 2023 0000 /0000 Active 2023 90331 41190 4 Once daily Topica l False Nystatin 100,000 unit/gram topical cream [generic] 1 mague Topical Twice daily as needed For EXOCORATION 1 mague 06/05 Inactiv e 2023 76604 66394 5 Twice daily as needed Topica l False Nystatin 100,000 unit/gram topical powder [generic] 100,000 unit Topical Twice daily to scrotum with AM and PM care For Scrotal excoriation 100,000 unit 06/05 Inactiv e 2023 24026 80667 5 Twice daily Topica l False Problems [...] weight Temperature SpO2 Blood Sugar Pulse Respirations 81386 210 69409 6 80.00 mm[Hg] - Sitting 132.00 mm[Hg] - Sitting 64875 211 76886 5 78.00 mm[Hg] - Sitting 125.00 mm[Hg] - Sitting 91832 216 52665 1 254.10 NI 69930 216 13733 2 79.00 mm[Hg] - Sitting 157.00 mm[Hg] - Sitting 73 NI 254.10 NI 36.30 Tympanic 95.00 % 72.00/ min 16.00/min 78810 216 21157 4 98.80 Tympanic 61507 216 30587 2 78.00 mm[Hg] - Sitting 164.00 mm[Hg] - Sitting 59009 217 45224 3 98.20 Tympanic 47343 217 43428 5 73.00 mm[Hg] - Sitting 159.00 mm[Hg] - Sitting 52642 217 15027 9 98.40 Forehead Scan 05633 218 60689 3 97.90 Tympanic 00043 218 32339 5 77.00 mm[Hg] - Sitting 137.00 mm[Hg] - Sitting 92092 219 08847 0 97.70 Tympanic 15876 219 16312 6 97.60 Tympanic 59517 219 41080 4 76.00 mm[Hg] - Sitting 139.00 mm[Hg] - Sitting 25572 219 97432 4 97.80 Forehead Scan 53979 220 20417 9 97.90 Tympanic 07328 220 85350 9 76.00 mm[Hg] - Sitting 138.00 mm[Hg] - Sitting 15917 220 78854 6 98.10 Tympanic 23315 221 44851 5 67.00 mm[Hg] - Sitting 142.00 mm[Hg] - Sitting 79087 221 82949 8 98.20 Tympanic 64253 221 24441 0 98.30 Tympanic 08293 222 61893 7 98.20 Tympanic 09044 222 61097 8 97.90 Tympanic 92542 223 93696 3 98.20 Tympanic 09947 223 50750 3 98.00 Tympanic 81894 224 00216 0 59.00 mm[Hg] - Sitting 111.00 mm[Hg] - Sitting 98.40 Forehead Scan 95.00 % 56.00/ min 18.00/min 25089 224 78089 9 98.20 Forehead Scan 86162 224 14531 3 97.90 Tympanic 96781 225 85619 4 98.20 Tympanic 22461 225 01991 8 97.50 Forehead Scan 99141 228 00179 0 55.00 mm[Hg] - Sitting 118.00 mm[Hg] - Sitting 98.40 Tympanic 69.00/ min 71341 229 87479 8 78.00 mm[Hg] - Sitting 152.00 mm[Hg] - Sitting 16695 230 19845 0 62.00 mm[Hg] - Sitting 122.00 mm[Hg] - Sitting 00007 231 74930 7 72.00 mm[Hg] - Lying Down 140.00 mm[Hg] - Lying Down 36993 101 64123 3 97.70 Forehead Scan 47659 101 48874 1 254.10 NI 69.00/ min 40306 101 64090 9 72.00 mm[Hg] - Sitting 142.00 mm[Hg] - Sitting 97.70 Tympanic 18.00/min 08399 101 79595 3 72.00 mm[Hg] - Lying Down 142.00 mm[Hg] - Lying Down 52933 102 86548 8 68.00 mm[Hg] - Lying Down 152.00 mm[Hg] - Lying Down 60569 103 95431 5 74.00 mm[Hg] - Sitting 158.00 mm[Hg] - Sitting 45075 104 89533 9 78.00 mm[Hg] - Sitting 144.00 mm[Hg] - Sitting 91006 105 15262 5 68.00 mm[Hg] - Sitting 138.00 mm[Hg] - Sitting 44254 106 80963 1 70.00 mm[Hg] - Sitting 138.00 mm[Hg] - Sitting 02049 107 70271 1 67.00 mm[Hg] - Sitting 142.00 mm[Hg] - Sitting 74948 108 65605 0 74.00 mm[Hg] - Sitting 143.00 mm[Hg] [...]
--- OUTSIDE RECORDS SUMMARY | 2024-07-26 11:16 | External Medical Summary | Continuity Of Care Document ---
Author Name Unknown Address [address] [place] [address] Organization [facility] () Care Team Providers Care Heavy Equipment Mechanic Name Role Phone DO Pritchett Amy Primary Care Provider [phone] Allergies Allergy Reaction Start Date End Date Status AMINOGLYCOSIDES Active CIPRO Active GENTAMICIN Active NSAIDS (NON-STEROIDAL ANTI-INFLAMMATORY DRUG) 0 Active IBUPROFEN Active QUINOLONES Active VALIUM Active Medications Medication Instructions Dosage Start Date End Date Status Order Date Drug Code Frequency Route of Admin Diagnosis Code Substitutions Allowed Spikevax [id number](1 2y up)(PF) 50 mcg/0.5 mL intramuscul ar suspension [COVID [id number](12 up)(andu)(P F)] 0.5mL Intramuscular 1 time Monitory 15 Minutes post injection for adverse effects; record site/temp For COVID 19 PREVENTION 0.5mL 01/02 Inactiv e 2023 65510 67611 4 1 time Intram uscula r False [facility] - Nurse initials indicate verificatio n that [id number] vaccine was administere d by [facility] Representat jon 1 Intramuscular 1 time ( Indicate vaccine type) For vaccine 1 05/03 Inactiv e 2023 1 time Intram uscula r False Lisinopril 40 mg tablet [generic] TAKE ONE (1) TABLET BY MOUTH IN THE MORNING. For DX- HTN 1 2023 Active 2023 56414 00504 1 Once daily By Mouth False Tizanidine 2 mg tablet [generic] TAKE ONE (1) TABLET BY MOUTH ONCE DAILY For MUSCLE SPASM 1 2023 Active 2023 48214 41321 0 Once daily By Mouth M62.838 False Tamsulosin 0.4 mg capsule [generic] TAKE (1) CAPSULE BY MOUTH AT BEDTIME For SPASMS 1 2023 Active 2023 23116 49892 0 Once daily By Mouth False Aspirin 81 mg tablet Once daily 1 TABLET BY MOUTH IN THE MORNING For DX- CAD DO NOT CRUSH, CHEW OR BREAK 81 mg 06/12 Inactiv e 2023 Once daily By Mouth False Baclofen 20 mg tablet [generic] 20 mg By Mouth 4 times a day For DX- MUSCLE SPASMS 20 mg 12/12 Inactiv e 2023 73098 77757 1 4 times a day By Mouth False Calcium citrate 250 mg tablet Once daily 4 TABLET BY MOUTH For DX- SUPPLEMENT 250 mg calci 12/12 Inactiv e 2023 Once daily By Mouth False Co Q-10 100 mg capsule 100 mg By Mouth Once daily For DX- SUPPLEMENT 100 mg 06/20 Inactiv e 2023 01869 31838 5 Once daily By Mouth False Furosemide 20 mg tablet [generic] 20 mg By Mouth Once daily For DX-CHF 20 mg 12/12 Inactiv e 2023 57921 91409 0 Once daily By Mouth False Gabapentin 300 mg capsule [generic] 300 mg By Mouth 3 times a day For DX- NEUROPATHY 300 mg 12/12 Inactiv e 2023 35294 53292 4 3 times a day By Mouth False Loratadine 10 mg tablet [generic] 10 mg By Mouth Once daily For DX- ALLERGIES 10 mg 2023 Active 2023 24379 73756 1 Once daily By Mouth False Miralax 17 gram/dose oral powder 17 gram/dose By Mouth IN THE MORNING Mix 1 TABLESPOON IN 8 OZ OF FLUID HOLD FOR LOOSE STOOLS For DX- CONSTIPATION 17 gram/do se 12/12 Inactiv e 2023 64891 46093 0 Once daily By Mouth False Paroxetine 30 mg tablet [generic] 30 mg By Mouth Once daily For DX- DEPRESSION 30 mg 2023 00/00 /0000 Active 2023 46476 20716 3 Once daily By Mouth False Potassium citrate ER 15 mEq (1,620 mg) tablet,exte nded release [generic] 15 mEq By Mouth 3 times a day For DX- SUPPLEMENT/DI URETIC USE/ HYPOCITRAUIRA DO NOT CRUSH 15 mEq 12/12 Inactiv e 2023 89969 75549 1 3 times a day By Mouth [...] For DX- DANDRUFF 12/12 Inactiv e 2023 89595 81003 4 3 times a week Topica l False Acetaminoph en 325 mg tablet [generic] TAKE 2 TABS (650MG) BY MOUTH EVERY 4 HOURS NEEDED FOR TEMP >100 NOT TO EXCEED 3GM/24HRS TAKE 2 TABS (650MG) BY MOUTH EVERY 4 HOURS NEEDED FOR TEMP >100 NOT TO EXCEED 3GM/24HRS For DX-FEVER 2 12/12 Inactiv e 2023 36090 75277 0 By Mouth False MILK OF MAGNESIA ADMINISTER 30 ML BY MOUTH ONCE DAILY NEEDED FOR CONSTIPATION X3 DAYS WITH NO BM. For DX- CONSTIPATION 30ML 12/12 Inactiv e 2023 33063 77715 9 By Mouth False Enema Disposable 19 gram-7 gram/118 mL ADMINISTER ONE ENEMA RECTALLY ONCE DAILY NEEDED FOR CONSTIPATION ON DAY 6 OF NO BM For DX- CONSTIPATION 12/12 Inactiv e 2023 33840 44818 1 Rectal False TUMS EXTRA STR 750MG TAKE (1) TABLET BY MOUTH THREE TIMES DAILY NEEDED FOR INDIGESTION For DX- INDIGESTION 1 12/12 Inactiv e 2023 97865 24755 8 By Mouth False Vitamin D3 25 [...] CONSTIPATION 10 mg 12/12 Inactiv e 2023 94647 44386 1 Rectal False Melatonin 3 mg tablet [generic] 3 mg By Mouth As Needed For DX-INSOMMIA 3 mg 12/12 Inactiv e 2023 35980 71190 8 By Mouth False Hydrocortis one 1 % topical cream [generic] 1 % Topical As Needed For DX- PAIN 1 % 12/12 Inactiv e 2023 64216 46245 1 Topica l False HYDROCORTIS ONE/PARMOXI NE [...] 5-10 50 mg 12/20 Inactiv e 2023 62832 60856 0 Every 4 hours as needed By Mouth False Tylenol 325 mg tablet 325 mg By Mouth Every 4 hours as needed For DX- PAIN PRN FOR MILD PAIN, DO NOT EXCEED 3000MG APAP/24 HOURS 325 mg 12/20 Inactiv e 2023 13736 05302 0 Every 4 hours as needed By Mouth False Baclofen 20 mg tablet [generic] 20 mg By Mouth 4 times a day For MUSCLE SPASMS 20 mg 12/20 Inactiv e 2023 54837 37952 1 4 times a day By Mouth False Calcium citrate 250 mg tablet [generic] Once daily TAKE 4 TABLETS (1000MG) BY MOUTH For SUPPLEMENT 1000 MG 06/26 Inactiv e 2023 88650 67239 6 Once daily By Mouth False Dulcolax (bisacodyl) 10 mg rectal suppository 10 mg Rectal Once daily For CONSTIPATION *MAY HOLD FOR LOOSE STOOLS* 10 mg 2023 Active 2023 60888 59965 1 Once daily Rectal False Gabapentin 300 mg capsule [generic] 300 mg By Mouth 3 times a day For NEUROPATHY 300 mg 2023 Active 2023 68553 42372 4 3 times a day By Mouth False Potassium citrate ER 15 mEq (1,620 mg) tablet,exte nded release [generic] 15 mEq By Mouth 3 times a day For SUPPLEMENT/DI URETIC USE/HYPOCITRA URIA 15 mEq 06/11 Inactiv e 2023 54582 74598 1 3 times a day By Mouth False Potassium chloride ER 20 mEq tablet,exte nded release [generic] 20 mEq By Mouth 3 times a day *DO NOT CRUSH, CHEW OR BREAK* For SUPPLEMENT 20 mEq 12/18 Inactiv e 2023 98148 30230 1 3 times a day By Mouth False Tizanidine 4 mg tablet [generic] 4 mg By Mouth Once daily For MUSCLE SPASMS 4 mg 2023 Active 2023 91895 29454 0 Once daily By Mouth False Tylenol 325 mg tablet 2 tabs By Mouth Every 4 hours as needed For Fever >100 DO NOT EXCEED 3000 MG APAP/24 Hours 2 tabs 12/20 Inactiv e 2023 75115 22498 0 Every 4 hours as needed By Mouth False Dulcolax (bisacodyl) 10 mg rectal suppository Daily as needed For Constipation 1 sup 12/20 Inactiv e 2023 83507 35242 1 Daily as needed Rectal False Fleet Enema 19 gram-7 gram/118 mL 1 Rectal Daily as neededFor Constipation 1 12/20 Inactiv e 2023 07827 75958 6 Daily as needed Rectal False Milk of Magnesia 400 mg/5 mL oral suspension [Magnesium hydroxide] PRN 30ml By Mouth Daily as needed for constipation one time daily if no BM, on day 4 of no BM (PRN refer to instructions) For Constipation For Constipatioin 30ml 12/20 Inactiv e 2023 57902 44953 6 1 time By Mouth False Melatonin 3 mg tablet [generic] 3 mg By Mouth Once daily As Needed For INSOMNIA 3 mg 12/20 Inactiv e 2023 28625 41952 8 Once daily By Mouth False Hydrocortis one 1 % topical cream [generic] 1 % Rectal Four times daily as needed For hemorroid pain 1 % 12/20 Inactiv e 2023 68894 99211 1 Four times daily as needed Rectal False X-STGH ANTACID 750MG CHEW TAKE (1) TABLET BY MOUTH THREE TIMES DAILY NEEDED FOR INDIGESTION 12/20 Inactiv e 2023 63450 69042 4 Three times daily as needed Saline Mist 0.65 % nasal spray aerosol 0.65 % Nares Four times daily as needed For DRYNESS 0.65 % 12/20 Inactiv e 2023 63745 85922 8 Four times daily as needed Nares False Vicks Vaporub 4.7 %-1.2 %-2.6 % topical ointment Apply topically to chest Three times daily as needed For CONGESTION 4.7-1.2 -2.6 12/20 Inactiv e 2023 30006 66983 1 Three times daily as needed Topica l False VITAMIN D3 2000U CAP TAKE ONE (1) CAPSULE BY MOUTH DAILY* DO NOT CRUSH, CHEW OR BREAK* For Supplement 1 capsule 12/19 Inactiv e 2023 80721 02302 0 Once daily By Mouth False Potassium chloride ER 20 mEq tablet,exte nded release(par t/cryst) [generic] TAKE (1) TABLET BY MOUTH THREE TIMES DAILY (MORNING, AFTERNOON, EVENING)*DO NOT CRUSH, CHEW, OR BREAK* For SUPPLEMENT 20 MEQ 06/11 Inactiv e 2023 65381 33702 5 3 times a day By Mouth False Aspirin 81 mg tablet,camron yed release [generic] TAKE ONE (1) TABLET BY MOUTH ONCE DAILY*DO NOT CRUSH, CHEW OR BREAK* For CAD 81 MG 12/22 Inactiv e 2023 58133 24903 0 Once daily By Mouth False Furosemide 20 mg tablet [generic] TAKE 1 AND 1/2 TABLETS (30MG) BY MOUTH ONCE DAILY For CHF 30mg 2023 Active 2023 39010 48059 1 Once daily By Mouth False Polyethylen e glycol 3350 17 gram/dose oral powder [generic] MIX 17 GRAMS (1 CAPFUL) IN 60Z OF LIQUID AND DRINK BY MOUTH ONCE DAILY *HOLD FOR LOOSE STOOLS* For constipation 17 g 2023 Active 2023 22723 40082 3 Once daily By Mouth False Vitamin D3 50 mcg (2,000 unit) capsule Once daily TAKE ONE (1) CAPSULE BY MOUTH DAILY* DO NOT CRUSH, CHEW OR BREAK* For Supplement 1 capsule 02/07 Inactiv e 2023 01165 96470 2 Once daily By Mouth False Fleet Enema 19 gram-7 gram/118 mL 1 Rectal Daily as neededFor Constipation 1 2023 0000 Active 2023 63227 42532 6 Daily as needed Rectal False Tums E-X 300 mg (as calcium carbonate 750 mg) chewable tablet 1 tab By Mouth TAKE (1) TABLET BY MOUTH THREE TIMES DAILY NEEDED FOR INDIGESTION 1 tab 202300 /0000 Active 2023 45642 85340 1 Three times daily as needed By Mouth False Tylenol 325 mg tablet 2 tabs By Mouth Every 4 hours as needed For Fever >100 DO NOT EXCEED 3000 MG APAP/24 Hours 2 tabs 202300 /0000 Active 2023 94394 05787 0 Every 4 hours as needed By Mouth False Vicks Vaporub 4.7 %-1.2 %-2.6 % topical ointment Apply topically to chest Three times daily as needed For CONGESTION topical 202300 Active 2023 04570 63567 1 Three times daily as needed Topica l False Tylenol 325 mg tablet 2 tabs By Mouth Every 4 hours as needed For DX- PAIN PRN FOR MILD PAIN, DO NOT EXCEED 3000MG APAP/24 HOURS 2 tabs 202300 Active 2023 72957 98113 0 Every 4 hours as needed By Mouth False Tramadol 50 mg tablet [generic] 1 tab By Mouth Every 4 hours as needed For DX- PAIN 5-10 1 tab 03/10 Inactiv e 2023 20358 14255 0 Every 4 hours as needed By Mouth False Saline Mist 0.65 % nasal spray aerosol 2 sprays Nares Four times daily as needed For DRYNESS 2 sprays 202300 / Active 2023 02464 11114 8 Four times daily as needed Nares False Dulcolax (bisacodyl) 10 mg rectal suppository Daily as needed For Constipation 1 sup 202300 / Active 2023 99870 19907 1 Daily as needed Rectal False Hydrocortis one-pramoxi ne 1 %-1 % rectal cream [generic] 1 mague Rectal Four times daily as needed For hemorroid pain 1 mague 202300 /0000 Active 2023 35815 52654 4 Four times daily as needed Rectal False Melatonin 3 mg tablet [generic] 1 tab By Mouth At bedtime as needed For INSOMNIA 1 tab 12/24 Inactiv e 2023 17965 63436 8 At bedtime as needed By Mouth False Milk of Magnesia 400 mg/5 mL oral suspension 30ml By Mouth Daily as needed Daily as needed for constipation one time daily if no BM, on day 4 of no BM (PRN refer to instructions) For Constipation For Constipatioin 30ml 2023 Active 2023 34687 66689 2 Daily as needed By Mouth False Baclofen 20 mg tablet [generic] 20 mg By Mouth 4 times a day For MUSCLE SPASMS 20 mg 2023 Active 2023 65629 86221 1 4 times a day By Mouth False Melatonin 3 mg tablet [generic] 1 tab By Mouth At bedtime as needed For INSOMNIA 1 tab 2023 Active 2023 61429 26231 8 At bedtime as needed By Mouth False Bactrim DS 800 mg-160 mg tablet 1 tab By Mouth Twice daily For URINARY TRACT INFECTION, SITE NOT SPECIFIED 1 tab 01/06 Inactiv e 2023 32659 29660 1 Twice daily By Mouth N39.0 False Cefdinir 300 mg capsule [generic] 300 mg By Mouth Twice daily For UTI 300 mg 01/07 Inactiv e 2023 20938 37772 0 Twice daily By Mouth False Cefdinir 300 mg capsule [generic] 300 mg By Mouth Twice daily For UTI 300 mg 01/17 Inactiv e 2023 79312 05402 0 Twice daily By Mouth False Zyrtec 10 mg tablet 10 mg By Mouth Once daily For sinus congestion 10 mg 01/22 Inactiv e 2023 58946 14947 0 Once daily By Mouth False Tobramycin 0.3 %-dexametha sone 0.1 % eye drops,suspe nsion [generic] 0.3-0.1 % Left Eye 4 times a day For eye infection 0.3-0.1 % 02/05 Inactiv e 2023 10117 06265 5 4 times a day Left Eye False Fluconazole 150 mg tablet [generic] 150 mg By Mouth 1 time For yeast infection 150 mg 02/15 Inactiv e 2023 24212 85967 2 1 time By Mouth False Tramadol 50 mg tablet [generic] 1 tab By Mouth Every 4 hours as needed For DX- PAIN 5-10 1 tab 2023 00/00 /0000 Active 2023 08608 75344 0 Every 4 hours as needed By Mouth False Tobramycin 0.3 %-dexametha sone 0.1 % eye drops,suspe nsion [generic] 1 drop Left Eye 4 times a day For Inflammation of left eye 1 drop 05/08 Inactiv e 2023 26030 49698 5 4 times a day Left Eye False Voltaren Arthritis Pain 1 % topical gel 2 gm Topical Twice daily to rigth shoulder for 2 weeks For pain 2 gm 05/08 Inactiv e 2023 95797 14681 1 Twice daily Topica l False Chlorthalid one 25 mg tablet [generic] 12.5mg By Mouth Once daily For HTN 12.5mg 05/06 Inactiv e 2023 49803 05022 0 Once daily By Mouth False Chlorthalid one 25 mg tablet [generic] 12.5mg By Mouth Once daily For HTN 12.5mg 05/07 Inactiv e 2023 86571 24985 0 Once daily By Mouth False Chlorthalid one 25 mg tablet [generic] 05/07 Inactiv e 2023 69847 58465 0 Chlorthalid one 25 mg tablet [generic] 12.5mg By Mouth Once daily For HTN 12.5mg 06/26 Inactiv e 2023 70662 22666 0 Once daily By Mouth False Norvasc 5 mg tablet 5mg By Mouth Once daily, hold medication if systolic is less than 90 For HYPERTENSIVE HEART DISEASE WITHOUT HEART FAILURE 5mg 06/03 Inactiv e 2023 16391 24687 1 Once daily By Mouth I11.9 False Norvasc 5 mg tablet 5mg By Mouth Once daily, hold medication if systolic is less than 90 For HYPERTENSIVE HEART DISEASE WITHOUT HEART FAILURE 5mg 06/03 Inactiv e 2023 44391 94580 1 Once daily By Mouth I11.9 False Norvasc 5 mg tablet 5mg By Mouth Once daily, hold medication if systolic is less than 90 For HYPERTENSIVE HEART DISEASE WITHOUT HEART FAILURE 5mg 06/26 Inactiv e 2023 34951 52891 1 Once daily By Mouth I11.9 False [...] Bladder spasms 10 mg 2023 Active 2023 91662 09432 1 Once daily By Mouth False DISCONTINUE as of 06/13/2024: Aspirin 81 mg tablet 06/13 Inactiv e 2023 Problems Code Description Start Date End Date [...] of urinary device 07/21/2023 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 07/21 Active N31.9 [...] weight Temperature SpO2 Blood Sugar Pulse Respirations 35564 211 38240 5 78.00 mm[Hg] - Sitting 125.00 mm[Hg] - Sitting 31807 216 76478 1 254.10 NI 38841 216 00237 2 79.00 mm[Hg] - Sitting 157.00 mm[Hg] - Sitting 73 NI 254.10 NI 36.30 Tympanic 95.00 % 72.00/ min 16.00/min 62896 216 54050 4 98.80 Tympanic 31437 216 78775 2 78.00 mm[Hg] - Sitting 164.00 mm[Hg] - Sitting 09643 217 68509 3 98.20 Tympanic 97476 217 38503 5 73.00 mm[Hg] - Sitting 159.00 mm[Hg] - Sitting 31638 217 03611 9 98.40 Forehead Scan 55589 218 09955 3 97.90 Tympanic 15577 218 09917 5 77.00 mm[Hg] - Sitting 137.00 mm[Hg] - Sitting 69426 219 59947 0 97.70 Tympanic 29969 219 84285 6 97.60 Tympanic 11806 219 69994 4 76.00 mm[Hg] - Sitting 139.00 mm[Hg] - Sitting 15457 219 58336 4 97.80 Forehead Scan 11663 220 74438 9 97.90 Tympanic 04489 220 60862 9 76.00 mm[Hg] - Sitting 138.00 mm[Hg] - Sitting 64945 220 02328 6 98.10 Tympanic 42153 221 14538 5 67.00 mm[Hg] - Sitting 142.00 mm[Hg] - Sitting 47895 221 24492 8 98.20 Tympanic 03275 221 51413 0 98.30 Tympanic 00499 222 79577 7 98.20 Tympanic 18134 222 72666 8 97.90 Tympanic 29510 223 00798 3 98.20 Tympanic 96093 223 32263 3 98.00 Tympanic 02349 224 94604 0 59.00 mm[Hg] - Sitting 111.00 mm[Hg] - Sitting 98.40 Forehead Scan 95.00 % 56.00/ min 18.00/min 69035 224 49123 9 98.20 Forehead Scan 04280 224 48101 3 97.90 Tympanic 43702 225 86847 4 98.20 Tympanic 17971 225 56644 8 97.50 Forehead Scan 14957 228 22607 0 55.00 mm[Hg] - Sitting 118.00 mm[Hg] - Sitting 98.40 Tympanic 69.00/ min 69486 229 22863 8 78.00 mm[Hg] - Sitting 152.00 mm[Hg] - Sitting 90531 230 02596 0 62.00 mm[Hg] - Sitting 122.00 mm[Hg] - Sitting 76811 231 40055 7 72.00 mm[Hg] - Lying Down 140.00 mm[Hg] - Lying Down 91349 101 96554 3 97.70 Forehead Scan 62636 101 89416 1 254.10 NI 69.00/ min 12661 101 20534 9 72.00 mm[Hg] - Sitting 142.00 mm[Hg] - Sitting 97.70 Tympanic 18.00/min 57524 101 03403 3 72.00 mm[Hg] - Lying Down 142.00 mm[Hg] - Lying Down 91354 102 34232 8 68.00 mm[Hg] - Lying Down 152.00 mm[Hg] - Lying Down 29465 103 15200 5 74.00 mm[Hg] - Sitting 158.00 mm[Hg] - Sitting 03419 104 72976 9 78.00 mm[Hg] - Sitting 144.00 mm[Hg] - Sitting 19598 105 75533 5 68.00 mm[Hg] - Sitting 138.00 mm[Hg] - Sitting 44269 106 24280 1 70.00 mm[Hg] - Sitting 138.00 mm[Hg] - Sitting 65246 107 82159 1 67.00 mm[Hg] - Sitting 142.00 mm[Hg] - Sitting 63689 108 18461 0 74.00 mm[Hg] - Sitting 143.00 mm[Hg] - Sitting 06177 110 77875 6 85.00 mm[Hg] - Sitting 160.00 mm[Hg] [...]
--- OUTSIDE RECORDS SUMMARY | 2024-07-26 11:16 | External Medical Summary | Continuity Of Care Document ---
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 Name Role Phone DO Pritchett Amy Primary Care Provider [phone] Allergies Allergy Reaction Start Date End Date Status AMINOGLYCOSIDES Active CIPRO Active GENTAMICIN Active NSAIDS (NON-STEROIDAL ANTI-INFLAMMATORY DRUG) 0 Active IBUPROFEN Active QUINOLONES Active VALIUM Active Medications Medication Instructions Dosage Start Date End Date Status Order Date Drug Code Frequency Route of Admin Diagnosis Code Substitutions Allowed Spikevax 6717-7235(1 2y up)(PF) 50 mcg/0.5 mL intramuscul ar suspension [COVID [id number](12 up)(andu)(P F)] 0.5mL Intramuscular 1 time Monitory 15 Minutes post injection for adverse effects; record site/temp For COVID 19 PREVENTION 0.5mL 01/02 Inactiv e 2023 82800 15127 4 1 time Intram uscula r False [facility] - Nurse initials indicate verificatio n that 3050-1972 vaccine was administere d by [facility] Representat jon 1 Intramuscular 1 time ( Indicate vaccine type) For vaccine 1 05/03 Inactiv e 2023 1 time Intram uscula r False Lisinopril 40 mg tablet [generic] TAKE ONE (1) TABLET BY MOUTH IN THE MORNING. For DX- HTN 1 2023 Active 2023 57407 48096 1 Once daily By Mouth False Tizanidine 2 mg tablet [generic] TAKE ONE (1) TABLET BY MOUTH ONCE DAILY For MUSCLE SPASM 1 2023 Active 2023 50755 65782 0 Once daily By Mouth M62.838 False Tamsulosin 0.4 mg capsule [generic] TAKE (1) CAPSULE BY MOUTH AT BEDTIME For SPASMS 1 2023 Active 2023 49749 94270 0 Once daily By Mouth False Aspirin 81 mg tablet Once daily 1 TABLET BY MOUTH IN THE MORNING For DX- CAD DO NOT CRUSH, CHEW OR BREAK 81 mg 06/12 Inactiv e 2023 Once daily By Mouth False Baclofen 20 mg tablet [generic] 20 mg By Mouth 4 times a day For DX- MUSCLE SPASMS 20 mg 12/12 Inactiv e 2023 10276 81245 1 4 times a day By Mouth False Calcium citrate 250 mg tablet Once daily 4 TABLET BY MOUTH For DX- SUPPLEMENT 250 mg calci 12/12 Inactiv e 2023 Once daily By Mouth False Co Q-10 100 mg capsule 100 mg By Mouth Once daily For DX- SUPPLEMENT 100 mg 06/20 Inactiv e 2023 12387 33264 5 Once daily By Mouth False Furosemide 20 mg tablet [generic] 20 mg By Mouth Once daily For DX-CHF 20 mg 12/12 Inactiv e 2023 99081 47128 0 Once daily By Mouth False Gabapentin 300 mg capsule [generic] 300 mg By Mouth 3 times a day For DX- NEUROPATHY 300 mg 12/12 Inactiv e 2023 40104 40324 4 3 times a day By Mouth False Loratadine 10 mg tablet [generic] 10 mg By Mouth Once daily For DX- ALLERGIES 10 mg 2023 Active 2023 95892 58423 1 Once daily By Mouth False Miralax 17 gram/dose oral powder 17 gram/dose By Mouth IN THE MORNING Mix 1 TABLESPOON IN 8 OZ OF FLUID HOLD FOR LOOSE STOOLS For DX- CONSTIPATION 17 gram/do se 12/12 Inactiv e 2023 72779 46617 0 Once daily By Mouth False Paroxetine 30 mg tablet [generic] 30 mg By Mouth Once daily For DX- DEPRESSION 30 mg 2023 00/00 /0000 Active 2023 35226 06667 3 Once daily By Mouth False Potassium citrate ER 15 mEq (1,620 mg) tablet,exte nded release [generic] 15 mEq By Mouth 3 times a day For DX- SUPPLEMENT/DI URETIC USE/ HYPOCITRAUIRA DO NOT CRUSH 15 mEq 12/12 Inactiv e 2023 18873 00941 1 3 times a day By Mouth [...] For DX- DANDRUFF 12/12 Inactiv e 2023 33504 54071 4 3 times a week Topica l False Acetaminoph en 325 mg tablet [generic] TAKE 2 TABS (650MG) BY MOUTH EVERY 4 HOURS NEEDED FOR TEMP >100 NOT TO EXCEED 3GM/24HRS TAKE 2 TABS (650MG) BY MOUTH EVERY 4 HOURS NEEDED FOR TEMP >100 NOT TO EXCEED 3GM/24HRS For DX-FEVER 2 12/12 Inactiv e 2023 09864 47728 0 By Mouth False MILK OF MAGNESIA ADMINISTER 30 ML BY MOUTH ONCE DAILY NEEDED FOR CONSTIPATION X3 DAYS WITH NO BM. For DX- CONSTIPATION 30ML 12/12 Inactiv e 2023 85429 13502 9 By Mouth False Enema Disposable 19 gram-7 gram/118 mL ADMINISTER ONE ENEMA RECTALLY ONCE DAILY NEEDED FOR CONSTIPATION ON DAY 6 OF NO BM For DX- CONSTIPATION 12/12 Inactiv e 2023 97449 05367 1 Rectal False TUMS EXTRA STR 750MG TAKE (1) TABLET BY MOUTH THREE TIMES DAILY NEEDED FOR INDIGESTION For DX- INDIGESTION 1 12/12 Inactiv e 2023 83564 02228 8 By Mouth False Vitamin D3 25 [...] CONSTIPATION 10 mg 12/12 Inactiv e 2023 20448 67607 1 Rectal False Melatonin 3 mg tablet [generic] 3 mg By Mouth As Needed For DX-INSOMMIA 3 mg 12/12 Inactiv e 2023 42269 25126 8 By Mouth False Hydrocortis one 1 % topical cream [generic] 1 % Topical As Needed For DX- PAIN 1 % 12/12 Inactiv e 2023 94716 35262 1 Topica l False HYDROCORTIS ONE/PARMOXI NE [...] 5-10 50 mg 12/20 Inactiv e 2023 24632 41638 0 Every 4 hours as needed By Mouth False Tylenol 325 mg tablet 325 mg By Mouth Every 4 hours as needed For DX- PAIN PRN FOR MILD PAIN, DO NOT EXCEED 3000MG APAP/24 HOURS 325 mg 12/20 Inactiv e 2023 87361 62894 0 Every 4 hours as needed By Mouth False Baclofen 20 mg tablet [generic] 20 mg By Mouth 4 times a day For MUSCLE SPASMS 20 mg 12/20 Inactiv e 2023 47625 97162 1 4 times a day By Mouth False Calcium citrate 250 mg tablet [generic] Once daily TAKE 4 TABLETS (1000MG) BY MOUTH For SUPPLEMENT 1000 MG 06/26 Inactiv e 2023 86410 72641 6 Once daily By Mouth False Dulcolax (bisacodyl) 10 mg rectal suppository 10 mg Rectal Once daily For CONSTIPATION *MAY HOLD FOR LOOSE STOOLS* 10 mg 2023 Active 2023 10855 44484 1 Once daily Rectal False Gabapentin 300 mg capsule [generic] 300 mg By Mouth 3 times a day For NEUROPATHY 300 mg 2023 Active 2023 65242 94564 4 3 times a day By Mouth False Potassium citrate ER 15 mEq (1,620 mg) tablet,exte nded release [generic] 15 mEq By Mouth 3 times a day For SUPPLEMENT/DI URETIC USE/HYPOCITRA URIA 15 mEq 06/11 Inactiv e 2023 66121 51236 1 3 times a day By Mouth False Potassium chloride ER 20 mEq tablet,exte nded release [generic] 20 mEq By Mouth 3 times a day *DO NOT CRUSH, CHEW OR BREAK* For SUPPLEMENT 20 mEq 12/18 Inactiv e 2023 11380 01569 1 3 times a day By Mouth False Tizanidine 4 mg tablet [generic] 4 mg By Mouth Once daily For MUSCLE SPASMS 4 mg 2023 Active 2023 46297 13873 0 Once daily By Mouth False Tylenol 325 mg tablet 2 tabs By Mouth Every 4 hours as needed For Fever >100 DO NOT EXCEED 3000 MG APAP/24 Hours 2 tabs 12/20 Inactiv e 2023 58942 75624 0 Every 4 hours as needed By Mouth False Dulcolax (bisacodyl) 10 mg rectal suppository Daily as needed For Constipation 1 sup 12/20 Inactiv e 2023 58071 32775 1 Daily as needed Rectal False Fleet Enema 19 gram-7 gram/118 mL 1 Rectal Daily as neededFor Constipation 1 12/20 Inactiv e 2023 29913 88381 6 Daily as needed Rectal False Milk of Magnesia 400 mg/5 mL oral suspension [Magnesium hydroxide] PRN 30ml By Mouth Daily as needed for constipation one time daily if no BM, on day 4 of no BM (PRN refer to instructions) For Constipation For Constipatioin 30ml 12/20 Inactiv e 2023 42168 30777 6 1 time By Mouth False Melatonin 3 mg tablet [generic] 3 mg By Mouth Once daily As Needed For INSOMNIA 3 mg 12/20 Inactiv e 2023 95696 87562 8 Once daily By Mouth False Hydrocortis one 1 % topical cream [generic] 1 % Rectal Four times daily as needed For hemorroid pain 1 % 12/20 Inactiv e 2023 84017 15074 1 Four times daily as needed Rectal False X-STGH ANTACID 750MG CHEW TAKE (1) TABLET BY MOUTH THREE TIMES DAILY NEEDED FOR INDIGESTION 12/20 Inactiv e 2023 86915 31658 4 Three times daily as needed Saline Mist 0.65 % nasal spray aerosol 0.65 % Nares Four times daily as needed For DRYNESS 0.65 % 12/20 Inactiv e 2023 37059 54427 8 Four times daily as needed Nares False Vicks Vaporub 4.7 %-1.2 %-2.6 % topical ointment Apply topically to chest Three times daily as needed For CONGESTION 4.7-1.2 -2.6 12/20 Inactiv e 2023 71618 99741 1 Three times daily as needed Topica l False VITAMIN D3 2000U CAP TAKE ONE (1) CAPSULE BY MOUTH DAILY* DO NOT CRUSH, CHEW OR BREAK* For Supplement 1 capsule 12/19 Inactiv e 2023 19869 34622 0 Once daily By Mouth False Potassium chloride ER 20 mEq tablet,exte nded release(par t/cryst) [generic] TAKE (1) TABLET BY MOUTH THREE TIMES DAILY (MORNING, AFTERNOON, EVENING)*DO NOT CRUSH, CHEW, OR BREAK* For SUPPLEMENT 20 MEQ 06/11 Inactiv e 2023 83434 69829 5 3 times a day By Mouth False Aspirin 81 mg tablet,camron yed release [generic] TAKE ONE (1) TABLET BY MOUTH ONCE DAILY*DO NOT CRUSH, CHEW OR BREAK* For CAD 81 MG 12/22 Inactiv e 2023 77586 58150 0 Once daily By Mouth False Furosemide 20 mg tablet [generic] TAKE 1 AND 1/2 TABLETS (30MG) BY MOUTH ONCE DAILY For CHF 30mg 2023 Active 2023 40975 93925 1 Once daily By Mouth False Polyethylen e glycol 3350 17 gram/dose oral powder [generic] MIX 17 GRAMS (1 CAPFUL) IN 60Z OF LIQUID AND DRINK BY MOUTH ONCE DAILY *HOLD FOR LOOSE STOOLS* For constipation 17 g 2023 Active 2023 03042 24166 3 Once daily By Mouth False Vitamin D3 50 mcg (2,000 unit) capsule Once daily TAKE ONE (1) CAPSULE BY MOUTH DAILY* DO NOT CRUSH, CHEW OR BREAK* For Supplement 1 capsule 02/07 Inactiv e 2023 17416 05241 2 Once daily By Mouth False Fleet Enema 19 gram-7 gram/118 mL 1 Rectal Daily as neededFor Constipation 1 2023 0000 Active 2023 77370 79754 6 Daily as needed Rectal False Tums E-X 300 mg (as calcium carbonate 750 mg) chewable tablet 1 tab By Mouth TAKE (1) TABLET BY MOUTH THREE TIMES DAILY NEEDED FOR INDIGESTION 1 tab 202300 /0000 Active 2023 50540 90696 1 Three times daily as needed By Mouth False Tylenol 325 mg tablet 2 tabs By Mouth Every 4 hours as needed For Fever >100 DO NOT EXCEED 3000 MG APAP/24 Hours 2 tabs 202300 /0000 Active 2023 74802 66636 0 Every 4 hours as needed By Mouth False Vicks Vaporub 4.7 %-1.2 %-2.6 % topical ointment Apply topically to chest Three times daily as needed For CONGESTION topical 202300 Active 2023 77431 01024 1 Three times daily as needed Topica l False Tylenol 325 mg tablet 2 tabs By Mouth Every 4 hours as needed For DX- PAIN PRN FOR MILD PAIN, DO NOT EXCEED 3000MG APAP/24 HOURS 2 tabs 202300 Active 2023 88754 94700 0 Every 4 hours as needed By Mouth False Tramadol 50 mg tablet [generic] 1 tab By Mouth Every 4 hours as needed For DX- PAIN 5-10 1 tab 03/10 Inactiv e 2023 56384 10941 0 Every 4 hours as needed By Mouth False Saline Mist 0.65 % nasal spray aerosol 2 sprays Nares Four times daily as needed For DRYNESS 2 sprays 202300 / Active 2023 37230 22782 8 Four times daily as needed Nares False Dulcolax (bisacodyl) 10 mg rectal suppository Daily as needed For Constipation 1 sup 202300 / Active 2023 54710 09731 1 Daily as needed Rectal False Hydrocortis one-pramoxi ne 1 %-1 % rectal cream [generic] 1 mague Rectal Four times daily as needed For hemorroid pain 1 mague 202300 /0000 Active 2023 12269 72524 4 Four times daily as needed Rectal False Melatonin 3 mg tablet [generic] 1 tab By Mouth At bedtime as needed For INSOMNIA 1 tab 12/24 Inactiv e 2023 75355 53405 8 At bedtime as needed By Mouth False Milk of Magnesia 400 mg/5 mL oral suspension 30ml By Mouth Daily as needed Daily as needed for constipation one time daily if no BM, on day 4 of no BM (PRN refer to instructions) For Constipation For Constipatioin 30ml 2023 Active 2023 84125 48319 2 Daily as needed By Mouth False Baclofen 20 mg tablet [generic] 20 mg By Mouth 4 times a day For MUSCLE SPASMS 20 mg 2023 Active 2023 48442 07680 1 4 times a day By Mouth False Melatonin 3 mg tablet [generic] 1 tab By Mouth At bedtime as needed For INSOMNIA 1 tab 2023 Active 2023 72271 22227 8 At bedtime as needed By Mouth False Bactrim DS 800 mg-160 mg tablet 1 tab By Mouth Twice daily For URINARY TRACT INFECTION, SITE NOT SPECIFIED 1 tab 01/06 Inactiv e 2023 75863 49989 1 Twice daily By Mouth N39.0 False Cefdinir 300 mg capsule [generic] 300 mg By Mouth Twice daily For UTI 300 mg 01/07 Inactiv e 2023 54637 62946 0 Twice daily By Mouth False Cefdinir 300 mg capsule [generic] 300 mg By Mouth Twice daily For UTI 300 mg 01/17 Inactiv e 2023 53089 96084 0 Twice daily By Mouth False Zyrtec 10 mg tablet 10 mg By Mouth Once daily For sinus congestion 10 mg 01/22 Inactiv e 2023 79577 21696 0 Once daily By Mouth False Tobramycin 0.3 %-dexametha sone 0.1 % eye drops,suspe nsion [generic] 0.3-0.1 % Left Eye 4 times a day For eye infection 0.3-0.1 % 02/05 Inactiv e 2023 53447 84325 5 4 times a day Left Eye False Fluconazole 150 mg tablet [generic] 150 mg By Mouth 1 time For yeast infection 150 mg 02/15 Inactiv e 2023 88316 62899 2 1 time By Mouth False Tramadol 50 mg tablet [generic] 1 tab By Mouth Every 4 hours as needed For DX- PAIN 5-10 1 tab 2023 00/00 /0000 Active 2023 56236 44541 0 Every 4 hours as needed By Mouth False Tobramycin 0.3 %-dexametha sone 0.1 % eye drops,suspe nsion [generic] 1 drop Left Eye 4 times a day For Inflammation of left eye 1 drop 05/08 Inactiv e 2023 43140 76641 5 4 times a day Left Eye False Voltaren Arthritis Pain 1 % topical gel 2 gm Topical Twice daily to rigth shoulder for 2 weeks For pain 2 gm 05/08 Inactiv e 2023 98939 09699 1 Twice daily Topica l False Chlorthalid one 25 mg tablet [generic] 12.5mg By Mouth Once daily For HTN 12.5mg 05/06 Inactiv e 2023 11843 32045 0 Once daily By Mouth False Chlorthalid one 25 mg tablet [generic] 12.5mg By Mouth Once daily For HTN 12.5mg 05/07 Inactiv e 2023 27808 85185 0 Once daily By Mouth False Chlorthalid one 25 mg tablet [generic] 05/07 Inactiv e 2023 68670 54262 0 Chlorthalid one 25 mg tablet [generic] 12.5mg By Mouth Once daily For HTN 12.5mg 06/26 Inactiv e 2023 05905 01114 0 Once daily By Mouth False Norvasc 5 mg tablet 5mg By Mouth Once daily, hold medication if systolic is less than 90 For HYPERTENSIVE HEART DISEASE WITHOUT HEART FAILURE 5mg 06/03 Inactiv e 2023 05374 00493 1 Once daily By Mouth I11.9 False Norvasc 5 mg tablet 5mg By Mouth Once daily, hold medication if systolic is less than 90 For HYPERTENSIVE HEART DISEASE WITHOUT HEART FAILURE 5mg 06/03 Inactiv e 2023 20421 16237 1 Once daily By Mouth I11.9 False Norvasc 5 mg tablet 5mg By Mouth Once daily, hold medication if systolic is less than 90 For HYPERTENSIVE HEART DISEASE WITHOUT HEART FAILURE 5mg 06/26 Inactiv e 2023 20049 61080 1 Once daily By Mouth I11.9 False [...] 10 mg 2023 00/00 /0000 Active 2023 79351 92576 1 Once daily By Mouth False DISCONTINUE [...] CAD 81 mg 06/14 Inactiv e 2023 69040 78486 9 Once daily By Mouth False Aspirin 81 mg tablet,camron yed release [generic] 06/14 Inactiv e 2023 72203 14375 9 Aspirin 81 mg tablet,camron yed release [generic] 81 mg By Mouth Once daily Do not crush, chew, or break For CAD 81 mg 06/154 Inactiv e 2023 44395 62279 9 Once daily By Mouth False Cefpodoxime 200 mg tablet [generic] 200mg By Mouth Twice daily For UTI 200mg 07/04 Inactiv e 2023 57099 31599 0 Twice daily By Mouth False Calcium citrate 250 mg tablet [generic] 06/26 Inactiv e 2023 51061 44786 6 Calcium citrate 250 mg tablet [generic] Once daily TAKE 4 TABLETS (1000MG) BY MOUTH For SUPPLEMENT 500 MG 2023 Active 2023 02285 18899 6 Once daily By Mouth False Norvasc 5 mg tablet 7.5 mg By Mouth Once daily Hold medication if SBP <90 For HYPERTENSIVE HEART DISEASE WITHOUT HEART FAILURE 7.5 mg 06/30 Inactiv e 2023 84424 49335 1 Once daily By Mouth I11.9 False Norvasc 5 mg tablet 7.5 mg By Mouth Once daily Hold medication if SBP <90 For HYPERTENSIVE HEART DISEASE WITHOUT HEART FAILURE 7.5 mg 07/06 Inactiv e 2023 42268 34169 1 Once daily By Mouth I11.9 False Simethicone 125 mg capsule [generic] 2 capule By Mouth Twice daily as needed For bloating/gas pain 2 capule 2023 Active 2023 77472 48268 0 Twice daily as needed By Mouth False Cepacol Sore Throat (benzocaine -menthol) 15 mg-2.6 mg lozenges 2 lozenges By Mouth Every 6 hours as needed For sore throat 2 lozenge s 2023 Active 2023 35357 92597 6 Every 6 hours as needed By Mouth False Cefepime 1 gram solution for injection [generic] 1g Intramuscular Every 12 hours 1g intramuscular ly ever 12 hours For UTI 1g 07/06 Inactiv e 2023 36198 80178 4 Every 12 hours Intram uscula r False Cefepime 1 gram solution for injection [generic] 07/06 Inactiv e 2023 39657 83445 4 Cefepime 1 gram solution for injection [generic] 1g Intramuscular Every 12 hours 1g intramuscular ly ever 12 hours For UTI Reconstitute with 2.4 ML of NSS. 1g 07/08 Inactiv e 2023 28517 56878 4 Every 12 hours Intram uscula r False Norvasc 5 mg tablet 07/06 Inactiv e 2023 07729 71604 1 I11.9 Norvasc 5 mg tablet 7.5 mg By Mouth Once daily Hold medication if SBP <90 For HYPERTENSIVE HEART DISEASE WITHOUT HEART FAILURE 7.5 mg 07/18 Inactiv e 2023 63322 45717 1 Once daily By Mouth I11.9 False Cefepime 1 gram solution for injection [generic] 07/08 Inactiv e 2023 90466 57524 4 Cefepime 1 gram solution for injection [generic] 1g Intramuscular Every 12 hours 1g intramuscular ly ever 12 hours For UTI Reconstitute with 2.4 ML of NSS. 1g 07/08 Inactiv e 2023 74147 34760 4 Every 12 hours Intram uscula r False Cefepime 1 gram solution for injection [generic] 07/08 Inactiv e 2023 14799 51260 4 Cefepime 1 gram solution for injection [generic] 1g Intramuscular Every 12 hours 1g intramuscular ly ever 12 hours For UTI Reconstitute with 2.4 ML of NSS. 1g 07/11 Inactiv e 2023 62175 87804 4 Every 12 hours Intram uscula r False Fleet Enema 19 gram-7 gram/118 mL 1 Rectal 1 time For constipation 1 07/16 Inactiv e 2024 52076 35716 6 1 time Rectal False Fleet Enema 19 gram-7 gram/118 mL 1 Rectal 1 time For constipation 1 07/17 Inactiv e 2024 77438 49719 6 1 time Rectal False Norvasc 5 mg tablet 7.5 mg By Mouth Once daily For HYPERTENSIVE HEART DISEASE WITHOUT HEART FAILURE 7.5 mg 2024 00/00 /0000 Active 2024 65479 78636 1 Once daily By Mouth I11.9 False Potassium chloride ER 20 mEq tablet,exte nded release(par t/cryst) [generic] 40 mEq By Mouth 1 time For low potassium prior to surgery 40 mEq 07/18 Inactiv e 2024 25904 03320 1 1 time By Mouth False Potassium chloride ER 20 mEq tablet,exte nded release(par t/cryst) [generic] 40 mEq By Mouth 1 time For low potassium prior to surgery 40 mEq 07/18 Inactiv e 2024 03243 07615 1 1 time By Mouth False Potassium chloride ER 20 mEq tablet,exte nded release(par t/cryst) [generic] 40 mEq By Mouth 1 time For low potassium 40 mEq 07/18 Inactiv e 2024 62831 15733 1 1 time By Mouth False Potassium chloride ER 20 mEq tablet,exte nded release(par t/cryst) [generic] 40 mEq By Mouth 1 time For low potassium 40 mEq 07/18 Inactiv e 2024 88538 58073 1 1 time By Mouth False Potassium chloride ER 20 mEq tablet,exte nded release [generic] 2 By Mouth 1 time For low potassium 2 07/19 Inactiv e 2024 85938 65813 1 1 time By Mouth False Potassium chloride ER 20 mEq tablet,exte nded release [generic] 2 capsules capsules By Mouth 1 time Please send capsule (2 capsules) For low potassium 2 capsule s 07/20 Active 2024 08504 60818 1 1 time By Mouth False Nystatin 100,000 unit/gram topical cream [generic] 100,000 unit Topical As Needed For DX- EXCORIATION 100,000 unit 12/12 Inactiv e 2023 25935 99488 5 Topica l False Vicks Vaporub 4.7 %-1.2 %-2.6 % topical ointment 4.7-1.2-2.6 Topical 3 times a day As Needed For DX- CONGESTION 4.7-1.2 -2.6 12/12 Inactiv e 2023 29767 33650 1 3 times a day Topica l False Ketoconazol e 2 % shampoo [generic] APPLY SHAMPOO TOPICALLY TO SCALP DURING HAIR WASHINGDX: ELVIA DERM OF SCALP For DX- ELVIA DERM OF SCALP 12/12 Inactiv e 2023 11235 34694 4 Topica l False THERA SILICONE SKIN GUARD Topical Twice daily 1 APPLICATION TOPICALLY IN THE MORNING AND AT BEDTIME TO SCROTUM For DX- PREVENTION 2023 0000 0000 Active 2023 Twice daily Topica l False Selenium sulfide 2.5 % lotion [generic] 2.5 % Topical EVERY MONDAY, MONDAY AND MONDAY AFTER SHOWER For DANDRUFF 2.5 % 202300 /0000 Active 2023 90343 45643 4 3 times a week Topica l False Nystatin (bulk) 100 million unit powder [generic] 100 million Topical Twice daily as needed For EXOCORATION 100 million 12/20 Inactiv e 2023 31679 94520 1 Twice daily as needed Topica l False Ketoconazol e 2 % shampoo [generic] Once daily APPLY SHAMPOO TOPICALLY TO SCALP DURING HAIR WASHING ON SHOWER DAYS- , , MON For ELVIA DERM OF SCAP 2 % 2023 0000 /0000 Active 2023 46584 92186 4 Once daily Topica l False Nystatin 100,000 unit/gram topical cream [generic] 1 mague Topical Twice daily as needed For EXOCORATION 1 mague 06/05 Inactiv e 2023 80580 20967 5 Twice daily as needed Topica l False Nystatin 100,000 unit/gram topical powder [generic] 100,000 unit Topical Twice daily to scrotum with AM and PM care For Scrotal excoriation 100,000 unit 06/05 Inactiv e 2023 51021 70829 5 Twice daily Topica l False Problems [...] of urinary device 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 07/21 Active [...] weight Temperature SpO2 Blood Sugar Pulse Respirations 87400 211 63629 5 78.00 mm[Hg] - Sitting 125.00 mm[Hg] - Sitting 72214 216 81400 1 254.10 NI 63004 216 66894 2 79.00 mm[Hg] - Sitting 157.00 mm[Hg] - Sitting 73 NI 254.10 NI 36.30 Tympanic 95.00 % 72.00/ min 16.00/min 45829 216 76187 4 98.80 Tympanic 07012 216 06222 2 78.00 mm[Hg] - Sitting 164.00 mm[Hg] - Sitting 47367 217 40899 3 98.20 Tympanic 77686 217 47342 5 73.00 mm[Hg] - Sitting 159.00 mm[Hg] - Sitting 35379 217 74901 9 98.40 Forehead Scan 63826 218 03586 3 97.90 Tympanic 86778 218 38053 5 77.00 mm[Hg] - Sitting 137.00 mm[Hg] - Sitting 54482 219 89496 0 97.70 Tympanic 86873 219 12242 6 97.60 Tympanic 73786 219 94036 4 76.00 mm[Hg] - Sitting 139.00 mm[Hg] - Sitting 80015 219 57328 4 97.80 Forehead Scan 26739 220 65980 9 97.90 Tympanic 39790 220 37942 9 76.00 mm[Hg] - Sitting 138.00 mm[Hg] - Sitting 35317 220 20676 6 98.10 Tympanic 49256 221 92177 5 67.00 mm[Hg] - Sitting 142.00 mm[Hg] - Sitting 10399 221 98506 8 98.20 Tympanic 18427 221 40384 0 98.30 Tympanic 94544 222 37756 7 98.20 Tympanic 91115 222 62762 8 97.90 Tympanic 71197 223 13220 3 98.20 Tympanic 77913 223 15214 3 98.00 Tympanic 74406 224 06655 0 59.00 mm[Hg] - Sitting 111.00 mm[Hg] - Sitting 98.40 Forehead Scan 95.00 % 56.00/ min 18.00/min 67488 224 15380 9 98.20 Forehead Scan 21367 224 02171 3 97.90 Tympanic 64916 225 29081 4 98.20 Tympanic 13625 225 48731 8 97.50 Forehead Scan 58548 228 05793 0 55.00 mm[Hg] - Sitting 118.00 mm[Hg] - Sitting 98.40 Tympanic 69.00/ min 46245 229 95989 8 78.00 mm[Hg] - Sitting 152.00 mm[Hg] - Sitting 99233 230 46572 0 62.00 mm[Hg] - Sitting 122.00 mm[Hg] - Sitting 62397 231 28109 7 72.00 mm[Hg] - Lying Down 140.00 mm[Hg] - Lying Down 98889 101 19907 3 97.70 Forehead Scan 21717 101 15480 1 254.10 NI 69.00/ min 73908 101 98593 9 72.00 mm[Hg] - Sitting 142.00 mm[Hg] - Sitting 97.70 Tympanic 18.00/min 18662 101 24969 3 72.00 mm[Hg] - Lying Down 142.00 mm[Hg] - Lying Down 11307 102 75649 8 68.00 mm[Hg] - Lying Down 152.00 mm[Hg] - Lying Down 18105 103 70258 5 74.00 mm[Hg] - Sitting 158.00 mm[Hg] - Sitting 85673 104 12517 9 78.00 mm[Hg] - Sitting 144.00 mm[Hg] - Sitting 64931 105 52071 5 68.00 mm[Hg] - Sitting 138.00 mm[Hg] - Sitting 46707 106 18792 1 70.00 mm[Hg] - Sitting 138.00 mm[Hg] - Sitting 40438 107 52676 1 67.00 mm[Hg] - Sitting 142.00 mm[Hg] - Sitting 76963 108 64192 0 74.00 mm[Hg] - Sitting 143.00 mm[Hg] [...]
--- OUTSIDE RECORDS SUMMARY | 2024-07-26 11:17 | External Medical Summary | Continuity Of Care Document ---
Author Name Unknown Address [address] [place] [address] Organization [facility] () Care Team Providers Care Modular Set Crew Member Name Role Phone DO Pritchett Amy Primary Care Provider [phone] Allergies Allergy Reaction Start Date End Date Status AMINOGLYCOSIDES Active CIPRO Active GENTAMICIN Active NSAIDS (NON-STEROIDAL ANTI-INFLAMMATORY DRUG) 0 Active IBUPROFEN Active QUINOLONES Active VALIUM Active Medications Medication Instructions Dosage Start Date End Date Status Order Date Drug Code Frequency Route of Admin Diagnosis Code Substitutions Allowed Spikevax 2461-0301(1 2y up)(PF) 50 mcg/0.5 mL intramuscul ar suspension [COVID ozn21-17(12 up)(andu)(P F)] 0.5mL Intramuscular 1 time Monitory 15 Minutes post injection for adverse effects; record site/temp For COVID 19 PREVENTION 0.5mL 01/02 Inactiv e 2023 07472 88772 4 1 time Intram uscula r False [facility] - Nurse initials indicate verificatio n that [id number] vaccine was administere d by [facility] jon 1 Intramuscular 1 time ( Indicate vaccine type) For vaccine 1 05/03 Inactiv e 2023 1 time Intram uscula r False Lisinopril 40 mg tablet [generic] TAKE ONE (1) TABLET BY MOUTH IN THE MORNING. For DX- HTN 1 2023 Active 2023 88714 96008 1 Once daily By Mouth False Tizanidine 2 mg tablet [generic] TAKE ONE (1) TABLET BY MOUTH ONCE DAILY For MUSCLE SPASM 1 2023 Active 2023 29181 58688 0 Once daily By Mouth M62.838 False Tamsulosin 0.4 mg capsule [generic] TAKE (1) CAPSULE BY MOUTH AT BEDTIME For SPASMS 1 2023 Active 2023 45166 52906 0 Once daily By Mouth False Aspirin 81 mg tablet Once daily 1 TABLET BY MOUTH IN THE MORNING For DX- CAD DO NOT CRUSH, CHEW OR BREAK 81 mg 06/12 Inactiv e 2023 Once daily By Mouth False Baclofen 20 mg tablet [generic] 20 mg By Mouth 4 times a day For DX- MUSCLE SPASMS 20 mg 12/12 Inactiv e 2023 75301 48338 1 4 times a day By Mouth False Calcium citrate 250 mg tablet Once daily 4 TABLET BY MOUTH For DX- SUPPLEMENT 250 mg calci 12/12 Inactiv e 2023 Once daily By Mouth False Co Q-10 100 mg capsule 100 mg By Mouth Once daily For DX- SUPPLEMENT 100 mg 06/20 Inactiv e 2023 81447 08118 5 Once daily By Mouth False Furosemide 20 mg tablet [generic] 20 mg By Mouth Once daily For DX-CHF 20 mg 12/12 Inactiv e 2023 28536 21514 0 Once daily By Mouth False Gabapentin 300 mg capsule [generic] 300 mg By Mouth 3 times a day For DX- NEUROPATHY 300 mg 12/12 Inactiv e 2023 05898 83822 4 3 times a day By Mouth False Loratadine 10 mg tablet [generic] 10 mg By Mouth Once daily For DX- ALLERGIES 10 mg 2023 Active 2023 12048 56232 1 Once daily By Mouth False Miralax 17 gram/dose oral powder 17 gram/dose By Mouth IN THE MORNING Mix 1 TABLESPOON IN 8 OZ OF FLUID HOLD FOR LOOSE STOOLS For DX- CONSTIPATION 17 gram/do se 12/12 Inactiv e 2023 33165 07924 0 Once daily By Mouth False Paroxetine 30 mg tablet [generic] 30 mg By Mouth Once daily For DX- DEPRESSION 30 mg 2023 00/00 /0000 Active 2023 73355 06953 3 Once daily By Mouth False Potassium citrate ER 15 mEq (1,620 mg) tablet,exte nded release [generic] 15 mEq By Mouth 3 times a day For DX- SUPPLEMENT/DI URETIC USE/ HYPOCITRAUIRA DO NOT CRUSH 15 mEq 12/12 Inactiv e 2023 09230 62102 1 3 times a day By Mouth [...] For DX- DANDRUFF 12/12 Inactiv e 2023 91819 67371 4 3 times a week Topica l False Acetaminoph en 325 mg tablet [generic] TAKE 2 TABS (650MG) BY MOUTH EVERY 4 HOURS NEEDED FOR TEMP >100 NOT TO EXCEED 3GM/24HRS TAKE 2 TABS (650MG) BY MOUTH EVERY 4 HOURS NEEDED FOR TEMP >100 NOT TO EXCEED 3GM/24HRS For DX-FEVER 2 12/12 Inactiv e 2023 94483 87214 0 By Mouth False MILK OF MAGNESIA ADMINISTER 30 ML BY MOUTH ONCE DAILY NEEDED FOR CONSTIPATION X3 DAYS WITH NO BM. For DX- CONSTIPATION 30ML 12/12 Inactiv e 2023 89873 84612 9 By Mouth False Enema Disposable 19 gram-7 gram/118 mL ADMINISTER ONE ENEMA RECTALLY ONCE DAILY NEEDED FOR CONSTIPATION ON DAY 6 OF NO BM For DX- CONSTIPATION 12/12 Inactiv e 2023 55070 77962 1 Rectal False TUMS EXTRA STR 750MG TAKE (1) TABLET BY MOUTH THREE TIMES DAILY NEEDED FOR INDIGESTION For DX- INDIGESTION 1 12/12 Inactiv e 2023 93977 24253 8 By Mouth False Vitamin D3 25 [...] CONSTIPATION 10 mg 12/12 Inactiv e 2023 95530 40390 1 Rectal False Melatonin 3 mg tablet [generic] 3 mg By Mouth As Needed For DX-INSOMMIA 3 mg 12/12 Inactiv e 2023 71175 85223 8 By Mouth False Hydrocortis one 1 % topical cream [generic] 1 % Topical As Needed For DX- PAIN 1 % 12/12 Inactiv e 2023 22628 69657 1 Topica l False HYDROCORTIS ONE/PARMOXI NE [...] 5-10 50 mg 12/20 Inactiv e 2023 03782 09555 0 Every 4 hours as needed By Mouth False Tylenol 325 mg tablet 325 mg By Mouth Every 4 hours as needed For DX- PAIN PRN FOR MILD PAIN, DO NOT EXCEED 3000MG APAP/24 HOURS 325 mg 12/20 Inactiv e 2023 40514 62902 0 Every 4 hours as needed By Mouth False Baclofen 20 mg tablet [generic] 20 mg By Mouth 4 times a day For MUSCLE SPASMS 20 mg 12/20 Inactiv e 2023 51479 11179 1 4 times a day By Mouth False Calcium citrate 250 mg tablet [generic] Once daily TAKE 4 TABLETS (1000MG) BY MOUTH For SUPPLEMENT 1000 MG 06/26 Inactiv e 2023 05274 18666 6 Once daily By Mouth False Dulcolax (bisacodyl) 10 mg rectal suppository 10 mg Rectal Once daily For CONSTIPATION *MAY HOLD FOR LOOSE STOOLS* 10 mg 2023 Active 2023 68937 47723 1 Once daily Rectal False Gabapentin 300 mg capsule [generic] 300 mg By Mouth 3 times a day For NEUROPATHY 300 mg 2023 Active 2023 71466 43187 4 3 times a day By Mouth False Potassium citrate ER 15 mEq (1,620 mg) tablet,exte nded release [generic] 15 mEq By Mouth 3 times a day For SUPPLEMENT/DI URETIC USE/HYPOCITRA URIA 15 mEq 06/11 Inactiv e 2023 57062 33771 1 3 times a day By Mouth False Potassium chloride ER 20 mEq tablet,exte nded release [generic] 20 mEq By Mouth 3 times a day *DO NOT CRUSH, CHEW OR BREAK* For SUPPLEMENT 20 mEq 12/18 Inactiv e 2023 53175 92039 1 3 times a day By Mouth False Tizanidine 4 mg tablet [generic] 4 mg By Mouth Once daily For MUSCLE SPASMS 4 mg 2023 Active 2023 77169 47778 0 Once daily By Mouth False Tylenol 325 mg tablet 2 tabs By Mouth Every 4 hours as needed For Fever >100 DO NOT EXCEED 3000 MG APAP/24 Hours 2 tabs 12/20 Inactiv e 2023 98454 28648 0 Every 4 hours as needed By Mouth False Dulcolax (bisacodyl) 10 mg rectal suppository Daily as needed For Constipation 1 sup 12/20 Inactiv e 2023 60896 35953 1 Daily as needed Rectal False Fleet Enema 19 gram-7 gram/118 mL 1 Rectal Daily as neededFor Constipation 1 12/20 Inactiv e 2023 67922 40510 6 Daily as needed Rectal False Milk of Magnesia 400 mg/5 mL oral suspension [Magnesium hydroxide] PRN 30ml By Mouth Daily as needed for constipation one time daily if no BM, on day 4 of no BM (PRN refer to instructions) For Constipation For Constipatioin 30ml 12/20 Inactiv e 2023 85754 66235 6 1 time By Mouth False Melatonin 3 mg tablet [generic] 3 mg By Mouth Once daily As Needed For INSOMNIA 3 mg 12/20 Inactiv e 2023 95786 61910 8 Once daily By Mouth False Hydrocortis one 1 % topical cream [generic] 1 % Rectal Four times daily as needed For hemorroid pain 1 % 12/20 Inactiv e 2023 50386 82170 1 Four times daily as needed Rectal False X-STGH ANTACID 750MG CHEW TAKE (1) TABLET BY MOUTH THREE TIMES DAILY NEEDED FOR INDIGESTION 12/20 Inactiv e 2023 91809 47746 4 Three times daily as needed Saline Mist 0.65 % nasal spray aerosol 0.65 % Nares Four times daily as needed For DRYNESS 0.65 % 12/20 Inactiv e 2023 40091 08143 8 Four times daily as needed Nares False Vicks Vaporub 4.7 %-1.2 %-2.6 % topical ointment Apply topically to chest Three times daily as needed For CONGESTION 4.7-1.2 -2.6 12/20 Inactiv e 2023 83926 14337 1 Three times daily as needed Topica l False VITAMIN D3 2000U CAP TAKE ONE (1) CAPSULE BY MOUTH DAILY* DO NOT CRUSH, CHEW OR BREAK* For Supplement 1 capsule 12/19 Inactiv e 2023 78083 82085 0 Once daily By Mouth False Potassium chloride ER 20 mEq tablet,exte nded release(par t/cryst) [generic] TAKE (1) TABLET BY MOUTH THREE TIMES DAILY (MORNING, AFTERNOON, EVENING)*DO NOT CRUSH, CHEW, OR BREAK* For SUPPLEMENT 20 MEQ 06/11 Inactiv e 2023 32509 74675 5 3 times a day By Mouth False Aspirin 81 mg tablet,camron yed release [generic] TAKE ONE (1) TABLET BY MOUTH ONCE DAILY*DO NOT CRUSH, CHEW OR BREAK* For CAD 81 MG 12/22 Inactiv e 2023 52276 98249 0 Once daily By Mouth False Furosemide 20 mg tablet [generic] TAKE 1 AND 1/2 TABLETS (30MG) BY MOUTH ONCE DAILY For CHF 30mg 2023 Active 2023 78777 35906 1 Once daily By Mouth False Polyethylen e glycol 3350 17 gram/dose oral powder [generic] MIX 17 GRAMS (1 CAPFUL) IN 60Z OF LIQUID AND DRINK BY MOUTH ONCE DAILY *HOLD FOR LOOSE STOOLS* For constipation 17 g 2023 Active 2023 26782 80890 3 Once daily By Mouth False Vitamin D3 50 mcg (2,000 unit) capsule Once daily TAKE ONE (1) CAPSULE BY MOUTH DAILY* DO NOT CRUSH, CHEW OR BREAK* For Supplement 1 capsule 02/07 Inactiv e 2023 26285 47192 2 Once daily By Mouth False Fleet Enema 19 gram-7 gram/118 mL 1 Rectal Daily as neededFor Constipation 1 2023 0000 Active 2023 91807 61674 6 Daily as needed Rectal False Tums E-X 300 mg (as calcium carbonate 750 mg) chewable tablet 1 tab By Mouth TAKE (1) TABLET BY MOUTH THREE TIMES DAILY NEEDED FOR INDIGESTION 1 tab 202300 /0000 Active 2023 62519 84027 1 Three times daily as needed By Mouth False Tylenol 325 mg tablet 2 tabs By Mouth Every 4 hours as needed For Fever >100 DO NOT EXCEED 3000 MG APAP/24 Hours 2 tabs 202300 /0000 Active 2023 17894 77374 0 Every 4 hours as needed By Mouth False Vicks Vaporub 4.7 %-1.2 %-2.6 % topical ointment Apply topically to chest Three times daily as needed For CONGESTION topical 202300 Active 2023 22088 61379 1 Three times daily as needed Topica l False Tylenol 325 mg tablet 2 tabs By Mouth Every 4 hours as needed For DX- PAIN PRN FOR MILD PAIN, DO NOT EXCEED 3000MG APAP/24 HOURS 2 tabs 202300 Active 2023 34255 95414 0 Every 4 hours as needed By Mouth False Tramadol 50 mg tablet [generic] 1 tab By Mouth Every 4 hours as needed For DX- PAIN 5-10 1 tab 03/10 Inactiv e 2023 58825 12123 0 Every 4 hours as needed By Mouth False Saline Mist 0.65 % nasal spray aerosol 2 sprays Nares Four times daily as needed For DRYNESS 2 sprays 202300 / Active 2023 98210 03375 8 Four times daily as needed Nares False Dulcolax (bisacodyl) 10 mg rectal suppository Daily as needed For Constipation 1 sup 202300 / Active 2023 43303 19754 1 Daily as needed Rectal False Hydrocortis one-pramoxi ne 1 %-1 % rectal cream [generic] 1 mague Rectal Four times daily as needed For hemorroid pain 1 mague 202300 /0000 Active 2023 45719 95549 4 Four times daily as needed Rectal False Melatonin 3 mg tablet [generic] 1 tab By Mouth At bedtime as needed For INSOMNIA 1 tab 12/24 Inactiv e 2023 93487 46023 8 At bedtime as needed By Mouth False Milk of Magnesia 400 mg/5 mL oral suspension 30ml By Mouth Daily as needed Daily as needed for constipation one time daily if no BM, on day 4 of no BM (PRN refer to instructions) For Constipation For Constipatioin 30ml 2023 Active 2023 11811 22593 2 Daily as needed By Mouth False Baclofen 20 mg tablet [generic] 20 mg By Mouth 4 times a day For MUSCLE SPASMS 20 mg 2023 Active 2023 46580 35521 1 4 times a day By Mouth False Melatonin 3 mg tablet [generic] 1 tab By Mouth At bedtime as needed For INSOMNIA 1 tab 2023 Active 2023 80436 36203 8 At bedtime as needed By Mouth False Bactrim DS 800 mg-160 mg tablet 1 tab By Mouth Twice daily For URINARY TRACT INFECTION, SITE NOT SPECIFIED 1 tab 01/06 Inactiv e 2023 54263 11097 1 Twice daily By Mouth N39.0 False Cefdinir 300 mg capsule [generic] 300 mg By Mouth Twice daily For UTI 300 mg 01/07 Inactiv e 2023 05052 52947 0 Twice daily By Mouth False Cefdinir 300 mg capsule [generic] 300 mg By Mouth Twice daily For UTI 300 mg 01/17 Inactiv e 2023 89499 49402 0 Twice daily By Mouth False Zyrtec 10 mg tablet 10 mg By Mouth Once daily For sinus congestion 10 mg 01/22 Inactiv e 2023 79854 82212 0 Once daily By Mouth False Tobramycin 0.3 %-dexametha sone 0.1 % eye drops,suspe nsion [generic] 0.3-0.1 % Left Eye 4 times a day For eye infection 0.3-0.1 % 02/05 Inactiv e 2023 41047 45108 5 4 times a day Left Eye False Fluconazole 150 mg tablet [generic] 150 mg By Mouth 1 time For yeast infection 150 mg 02/15 Inactiv e 2023 79953 53991 2 1 time By Mouth False Tramadol 50 mg tablet [generic] 1 tab By Mouth Every 4 hours as needed For DX- PAIN 5-10 1 tab 2023 00/00 /0000 Active 2023 67219 81789 0 Every 4 hours as needed By Mouth False Tobramycin 0.3 %-dexametha sone 0.1 % eye drops,suspe nsion [generic] 1 drop Left Eye 4 times a day For Inflammation of left eye 1 drop 05/08 Inactiv e 2023 39568 39176 5 4 times a day Left Eye False Voltaren Arthritis Pain 1 % topical gel 2 gm Topical Twice daily to rigth shoulder for 2 weeks For pain 2 gm 05/08 Inactiv e 2023 42680 34853 1 Twice daily Topica l False Chlorthalid one 25 mg tablet [generic] 12.5mg By Mouth Once daily For HTN 12.5mg 05/06 Inactiv e 2023 80789 14984 0 Once daily By Mouth False Chlorthalid one 25 mg tablet [generic] 12.5mg By Mouth Once daily For HTN 12.5mg 05/07 Inactiv e 2023 38657 18111 0 Once daily By Mouth False Chlorthalid one 25 mg tablet [generic] 05/07 Inactiv e 2023 81477 19823 0 Chlorthalid one 25 mg tablet [generic] 12.5mg By Mouth Once daily For HTN 12.5mg 06/26 Inactiv e 2023 36828 79529 0 Once daily By Mouth False Norvasc 5 mg tablet 5mg By Mouth Once daily, hold medication if systolic is less than 90 For HYPERTENSIVE HEART DISEASE WITHOUT HEART FAILURE 5mg 06/03 Inactiv e 2023 96202 34713 1 Once daily By Mouth I11.9 False Norvasc 5 mg tablet 5mg By Mouth Once daily, hold medication if systolic is less than 90 For HYPERTENSIVE HEART DISEASE WITHOUT HEART FAILURE 5mg 06/03 Inactiv e 2023 93805 82666 1 Once daily By Mouth I11.9 False Norvasc 5 mg tablet 5mg By Mouth Once daily, hold medication if systolic is less than 90 For HYPERTENSIVE HEART DISEASE WITHOUT HEART FAILURE 5mg 06/26 Inactiv e 2023 97503 89554 1 Once daily By Mouth I11.9 False [...] 10 mg 2023 00/00 /0000 Active 2023 41842 02378 1 Once daily By Mouth False DISCONTINUE [...] CAD 81 mg 06/14 Inactiv e 2023 32228 36801 9 Once daily By Mouth False Aspirin 81 mg tablet,camron yed release [generic] 06/14 Inactiv e 2023 12449 92836 9 Aspirin 81 mg tablet,camron yed release [generic] 81 mg By Mouth Once daily Do not crush, chew, or break For CAD 81 mg 06/154 Inactiv e 2023 05484 05357 9 Once daily By Mouth False Cefpodoxime 200 mg tablet [generic] 200mg By Mouth Twice daily For UTI 200mg 07/04 Inactiv e 2023 97091 01762 0 Twice daily By Mouth False Calcium citrate 250 mg tablet [generic] 06/26 Inactiv e 2023 46724 85185 6 Calcium citrate 250 mg tablet [generic] Once daily TAKE 4 TABLETS (1000MG) BY MOUTH For SUPPLEMENT 500 MG 2023 Active 2023 70455 21543 6 Once daily By Mouth False Norvasc 5 mg tablet 7.5 mg By Mouth Once daily Hold medication if SBP <90 For HYPERTENSIVE HEART DISEASE WITHOUT HEART FAILURE 7.5 mg 06/30 Inactiv e 2023 14543 78058 1 Once daily By Mouth I11.9 False Norvasc 5 mg tablet 7.5 mg By Mouth Once daily Hold medication if SBP <90 For HYPERTENSIVE HEART DISEASE WITHOUT HEART FAILURE 7.5 mg 07/06 Inactiv e 2023 97461 93019 1 Once daily By Mouth I11.9 False Simethicone 125 mg capsule [generic] 2 capule By Mouth Twice daily as needed For bloating/gas pain 2 capule 2023 Active 2023 10891 49074 0 Twice daily as needed By Mouth False Cepacol Sore Throat (benzocaine -menthol) 15 mg-2.6 mg lozenges 2 lozenges By Mouth Every 6 hours as needed For sore throat 2 lozenge s 2023 Active 2023 77187 24049 6 Every 6 hours as needed By Mouth False Cefepime 1 gram solution for injection [generic] 1g Intramuscular Every 12 hours 1g intramuscular ly ever 12 hours For UTI 1g 07/06 Inactiv e 2023 58179 54056 4 Every 12 hours Intram uscula r False Cefepime 1 gram solution for injection [generic] 07/06 Inactiv e 2023 96826 25728 4 Cefepime 1 gram solution for injection [generic] 1g Intramuscular Every 12 hours 1g intramuscular ly ever 12 hours For UTI Reconstitute with 2.4 ML of NSS. 1g 07/08 Inactiv e 2023 74002 21174 4 Every 12 hours Intram uscula r False Norvasc 5 mg tablet 07/06 Inactiv e 2023 02265 37214 1 I11.9 Norvasc 5 mg tablet 7.5 mg By Mouth Once daily Hold medication if SBP <90 For HYPERTENSIVE HEART DISEASE WITHOUT HEART FAILURE 7.5 mg 07/18 Inactiv e 2023 61722 81580 1 Once daily By Mouth I11.9 False Cefepime 1 gram solution for injection [generic] 07/08 Inactiv e 2023 26430 95976 4 Cefepime 1 gram solution for injection [generic] 1g Intramuscular Every 12 hours 1g intramuscular ly ever 12 hours For UTI Reconstitute with 2.4 ML of NSS. 1g 07/08 Inactiv e 2023 25450 81495 4 Every 12 hours Intram uscula r False Cefepime 1 gram solution for injection [generic] 07/08 Inactiv e 2023 35935 47391 4 Cefepime 1 gram solution for injection [generic] 1g Intramuscular Every 12 hours 1g intramuscular ly ever 12 hours For UTI Reconstitute with 2.4 ML of NSS. 1g 07/11 Inactiv e 2023 64030 10920 4 Every 12 hours Intram uscula r False Fleet Enema 19 gram-7 gram/118 mL 1 Rectal 1 time For constipation 1 07/16 Inactiv e 2024 31493 74548 6 1 time Rectal False Fleet Enema 19 gram-7 gram/118 mL 1 Rectal 1 time For constipation 1 07/17 Inactiv e 2024 62484 19067 6 1 time Rectal False Norvasc 5 mg tablet 7.5 mg By Mouth Once daily For HYPERTENSIVE HEART DISEASE WITHOUT HEART FAILURE 7.5 mg 2024 00/00 /0000 Active 2024 99828 30451 1 Once daily By Mouth I11.9 False Potassium chloride ER 20 mEq tablet,exte nded release(par t/cryst) [generic] 40 mEq By Mouth 1 time For low potassium prior to surgery 40 mEq 07/18 Inactiv e 2024 46177 45387 1 1 time By Mouth False Potassium chloride ER 20 mEq tablet,exte nded release(par t/cryst) [generic] 40 mEq By Mouth 1 time For low potassium prior to surgery 40 mEq 07/18 Inactiv e 2024 22691 46457 1 1 time By Mouth False Potassium chloride ER 20 mEq tablet,exte nded release(par t/cryst) [generic] 40 mEq By Mouth 1 time For low potassium 40 mEq 07/18 Inactiv e 2024 99243 64988 1 1 time By Mouth False Potassium chloride ER 20 mEq tablet,exte nded release(par t/cryst) [generic] 40 mEq By Mouth 1 time For low potassium 40 mEq 07/18 Inactiv e 2024 35139 19795 1 1 time By Mouth False Potassium chloride ER 20 mEq tablet,exte nded release [generic] 2 By Mouth 1 time For low potassium 2 07/19 Inactiv e 2024 98232 93729 1 1 time By Mouth False Potassium chloride ER 20 mEq tablet,exte nded release [generic] 2 capsules capsules By Mouth 1 time Please send capsule (2 capsules) For low potassium 2 capsule s 07/20 Active 2024 71730 15716 1 1 time By Mouth False Nystatin 100,000 unit/gram topical cream [generic] 100,000 unit Topical As Needed For DX- EXCORIATION 100,000 unit 12/12 Inactiv e 2023 43324 98161 5 Topica l False Vicks Vaporub 4.7 %-1.2 %-2.6 % topical ointment 4.7-1.2-2.6 Topical 3 times a day As Needed For DX- CONGESTION 4.7-1.2 -2.6 12/12 Inactiv e 2023 87800 81681 1 3 times a day Topica l False Ketoconazol e 2 % shampoo [generic] APPLY SHAMPOO TOPICALLY TO SCALP DURING HAIR WASHINGDX: ELVIA DERM OF SCALP For DX- ELVIA DERM OF SCALP 12/12 Inactiv e 2023 85633 99506 4 Topica l False THERA SILICONE SKIN GUARD Topical Twice daily 1 APPLICATION TOPICALLY IN THE MORNING AND AT BEDTIME TO SCROTUM For DX- PREVENTION 2023 0000 0000 Active 2023 Twice daily Topica l False Selenium sulfide 2.5 % lotion [generic] 2.5 % Topical EVERY MONDAY, MONDAY AND MONDAY AFTER SHOWER For DANDRUFF 2.5 % 202300 /0000 Active 2023 88460 56273 4 3 times a week Topica l False Nystatin (bulk) 100 million unit powder [generic] 100 million Topical Twice daily as needed For EXOCORATION 100 million 12/20 Inactiv e 2023 66670 85774 1 Twice daily as needed Topica l False Ketoconazol e 2 % shampoo [generic] Once daily APPLY SHAMPOO TOPICALLY TO SCALP DURING HAIR WASHING ON SHOWER DAYS- , , MON For ELVIA DERM OF SCAP 2 % 2023 0000 /0000 Active 2023 75750 07396 4 Once daily Topica l False Nystatin 100,000 unit/gram topical cream [generic] 1 mague Topical Twice daily as needed For EXOCORATION 1 mague 06/05 Inactiv e 2023 96150 27029 5 Twice daily as needed Topica l False Nystatin 100,000 unit/gram topical powder [generic] 100,000 unit Topical Twice daily to scrotum with AM and PM care For Scrotal excoriation 100,000 unit 06/05 Inactiv e 2023 35746 50514 5 Twice daily Topica l False Problems [...] weight Temperature SpO2 Blood Sugar Pulse Respirations 07644 211 02192 5 78.00 mm[Hg] - Sitting 125.00 mm[Hg] - Sitting 29285 216 34669 1 [place]10 [place] [address] 216 39725 2 79.00 mm[Hg] - Sitting 157.00 mm[Hg] - Sitting 73 NI 254.10 NI 36.30 Tympanic 95.00 % 72.00/ min 16.00/min 98753 216 16302 4 98.80 Tympanic 76718 216 96629 2 78.00 mm[Hg] - Sitting 164.00 mm[Hg] - Sitting 74052 217 82721 3 98.20 Tympanic 82218 217 56979 5 73.00 mm[Hg] - Sitting 159.00 mm[Hg] - Sitting 29627 217 49443 9 98.40 Forehead Scan 25698 218 78064 3 97.90 Tympanic 15976 218 20610 5 77.00 mm[Hg] - Sitting 137.00 mm[Hg] - Sitting 38747 219 90221 0 97.70 Tympanic 14550 219 09806 6 97.60 Tympanic 62768 219 83281 4 76.00 mm[Hg] - Sitting 139.00 mm[Hg] - Sitting 21848 219 86375 4 97.80 Forehead Scan 22886 220 30834 9 97.90 Tympanic 33529 220 76058 9 76.00 mm[Hg] - Sitting 138.00 mm[Hg] - Sitting 47037 220 01612 6 98.10 Tympanic 37432 221 00595 5 67.00 mm[Hg] - Sitting 142.00 mm[Hg] - Sitting 44036 221 47762 8 98.20 Tympanic 93123 221 28563 0 98.30 Tympanic 82626 222 27050 7 98.20 Tympanic 39141 222 08485 8 97.90 Tympanic 18104 223 37370 3 98.20 Tympanic 16244 223 38524 3 98.00 Tympanic 14105 224 40588 0 59.00 mm[Hg] - Sitting 111.00 mm[Hg] - Sitting 98.40 Forehead Scan 95.00 % 56.00/ min 18.00/min 48820 224 68600 9 98.20 Forehead Scan 89842 224 94917 3 97.90 Tympanic 32916 225 45139 4 98.20 Tympanic 97991 225 38943 8 97.50 Forehead Scan 60249 228 05818 0 55.00 mm[Hg] - Sitting 118.00 mm[Hg] - Sitting 98.40 Tympanic 69.00/ min 84729 229 90563 8 78.00 mm[Hg] - Sitting 152.00 mm[Hg] - Sitting 70206 230 93893 0 62.00 mm[Hg] - Sitting 122.00 mm[Hg] - Sitting 05968 231 58870 7 72.00 mm[Hg] - Lying Down 140.00 mm[Hg] - Lying Down 77587 101 24343 3 97.70 Forehead Scan 19911 101 46429 1 254.10 NI 69.00/ min 05250 101 34649 9 72.00 mm[Hg] - Sitting 142.00 mm[Hg] - Sitting 97.70 Tympanic 18.00/min 69374 101 34677 3 72.00 mm[Hg] - Lying Down 142.00 mm[Hg] - Lying Down 88100 102 29650 8 68.00 mm[Hg] - Lying Down 152.00 mm[Hg] - Lying Down 16032 103 88932 5 74.00 mm[Hg] - Sitting 158.00 mm[Hg] - Sitting 83740 104 61498 9 78.00 mm[Hg] - Sitting 144.00 mm[Hg] - Sitting 57194 105 15190 5 68.00 mm[Hg] - Sitting 138.00 mm[Hg] - Sitting 02059 106 77144 1 70.00 mm[Hg] - Sitting 138.00 mm[Hg] - Sitting 10559 107 81587 1 67.00 mm[Hg] - Sitting 142.00 mm[Hg] - Sitting 86250 108 86567 0 74.00 mm[Hg] - Sitting 143.00 mm[Hg] [...]
--- OUTSIDE RECORDS SUMMARY | 2024-07-26 11:17 | External Medical Summary | Continuity Of Care Document ---
Author Name Unknown Address [address] [place] [address] Organization [facility] () Care Team Providers Care Business Intelligence Engineer Name Role Phone DO Pritchett Amy Primary Care Provider [phone] Allergies Allergy Reaction Start Date End Date Status AMINOGLYCOSIDES Active CIPRO Active GENTAMICIN Active NSAIDS (NON-STEROIDAL ANTI-INFLAMMATORY DRUG) 0 Active IBUPROFEN Active QUINOLONES Active VALIUM Active Medications Medication Instructions Dosage Start Date End Date Status Order Date Drug Code Frequency Route of Admin Diagnosis Code Substitutions Allowed Spikevax [id number](1 2y up)(PF) 50 mcg/0.5 mL intramuscul ar suspension [COVID dic18-85(12 up)(andu)(P F)] 0.5mL Intramuscular 1 time Monitory 15 Minutes post injection for adverse effects; record site/temp For COVID 19 PREVENTION 0.5mL 01/02 Inactiv e 2023 39745 81254 4 1 time Intram uscula r False [facility] - Nurse initials indicate verificatio n that [id number] vaccine was administere d by [facility] jon 1 Intramuscular 1 time ( Indicate vaccine type) For vaccine 1 05/03 Inactiv e 2023 1 time Intram uscula r False Lisinopril 40 mg tablet [generic] TAKE ONE (1) TABLET BY MOUTH IN THE MORNING. For DX- HTN 1 2023 Active 2023 24767 31710 1 Once daily By Mouth False Tizanidine 2 mg tablet [generic] TAKE ONE (1) TABLET BY MOUTH ONCE DAILY For MUSCLE SPASM 1 2023 Active 2023 43349 97986 0 Once daily By Mouth M62.838 False Tamsulosin 0.4 mg capsule [generic] TAKE (1) CAPSULE BY MOUTH AT BEDTIME For SPASMS 1 2023 Active 2023 75425 84562 0 Once daily By Mouth False Aspirin 81 mg tablet Once daily 1 TABLET BY MOUTH IN THE MORNING For DX- CAD DO NOT CRUSH, CHEW OR BREAK 81 mg 06/12 Inactiv e 2023 Once daily By Mouth False Baclofen 20 mg tablet [generic] 20 mg By Mouth 4 times a day For DX- MUSCLE SPASMS 20 mg 12/12 Inactiv e 2023 06987 69949 1 4 times a day By Mouth False Calcium citrate 250 mg tablet Once daily 4 TABLET BY MOUTH For DX- SUPPLEMENT 250 mg calci 12/12 Inactiv e 2023 Once daily By Mouth False Co Q-10 100 mg capsule 100 mg By Mouth Once daily For DX- SUPPLEMENT 100 mg 06/20 Inactiv e 2023 91300 49508 5 Once daily By Mouth False Furosemide 20 mg tablet [generic] 20 mg By Mouth Once daily For DX-CHF 20 mg 12/12 Inactiv e 2023 67917 67912 0 Once daily By Mouth False Gabapentin 300 mg capsule [generic] 300 mg By Mouth 3 times a day For DX- NEUROPATHY 300 mg 12/12 Inactiv e 2023 99251 83521 4 3 times a day By Mouth False Loratadine 10 mg tablet [generic] 10 mg By Mouth Once daily For DX- ALLERGIES 10 mg 2023 Active 2023 89027 22228 1 Once daily By Mouth False Miralax 17 gram/dose oral powder 17 gram/dose By Mouth IN THE MORNING Mix 1 TABLESPOON IN 8 OZ OF FLUID HOLD FOR LOOSE STOOLS For DX- CONSTIPATION 17 gram/do se 12/12 Inactiv e 2023 05443 12675 0 Once daily By Mouth False Paroxetine 30 mg tablet [generic] 30 mg By Mouth Once daily For DX- DEPRESSION 30 mg 2023 00/00 /0000 Active 2023 89194 46507 3 Once daily By Mouth False Potassium citrate ER 15 mEq (1,620 mg) tablet,exte nded release [generic] 15 mEq By Mouth 3 times a day For DX- SUPPLEMENT/DI URETIC USE/ HYPOCITRAUIRA DO NOT CRUSH 15 mEq 12/12 Inactiv e 2023 07981 33630 1 3 times a day By Mouth [...] For DX- DANDRUFF 12/12 Inactiv e 2023 30501 77933 4 3 times a week Topica l False Acetaminoph en 325 mg tablet [generic] TAKE 2 TABS (650MG) BY MOUTH EVERY 4 HOURS NEEDED FOR TEMP >100 NOT TO EXCEED 3GM/24HRS TAKE 2 TABS (650MG) BY MOUTH EVERY 4 HOURS NEEDED FOR TEMP >100 NOT TO EXCEED 3GM/24HRS For DX-FEVER 2 12/12 Inactiv e 2023 26269 48746 0 By Mouth False MILK OF MAGNESIA ADMINISTER 30 ML BY MOUTH ONCE DAILY NEEDED FOR CONSTIPATION X3 DAYS WITH NO BM. For DX- CONSTIPATION 30ML 12/12 Inactiv e 2023 64576 41266 9 By Mouth False Enema Disposable 19 gram-7 gram/118 mL ADMINISTER ONE ENEMA RECTALLY ONCE DAILY NEEDED FOR CONSTIPATION ON DAY 6 OF NO BM For DX- CONSTIPATION 12/12 Inactiv e 2023 90946 21061 1 Rectal False TUMS EXTRA STR 750MG TAKE (1) TABLET BY MOUTH THREE TIMES DAILY NEEDED FOR INDIGESTION For DX- INDIGESTION 1 12/12 Inactiv e 2023 92568 99433 8 By Mouth False Vitamin D3 25 [...] CONSTIPATION 10 mg 12/12 Inactiv e 2023 14296 20922 1 Rectal False Melatonin 3 mg tablet [generic] 3 mg By Mouth As Needed For DX-INSOMMIA 3 mg 12/12 Inactiv e 2023 35118 07325 8 By Mouth False Hydrocortis one 1 % topical cream [generic] 1 % Topical As Needed For DX- PAIN 1 % 12/12 Inactiv e 2023 40330 86697 1 Topica l False HYDROCORTIS ONE/PARMOXI NE [...] 5-10 50 mg 12/20 Inactiv e 2023 25574 86610 0 Every 4 hours as needed By Mouth False Tylenol 325 mg tablet 325 mg By Mouth Every 4 hours as needed For DX- PAIN PRN FOR MILD PAIN, DO NOT EXCEED 3000MG APAP/24 HOURS 325 mg 12/20 Inactiv e 2023 19607 27661 0 Every 4 hours as needed By Mouth False Baclofen 20 mg tablet [generic] 20 mg By Mouth 4 times a day For MUSCLE SPASMS 20 mg 12/20 Inactiv e 2023 24130 85129 1 4 times a day By Mouth False Calcium citrate 250 mg tablet [generic] Once daily TAKE 4 TABLETS (1000MG) BY MOUTH For SUPPLEMENT 1000 MG 06/26 Inactiv e 2023 82739 08017 6 Once daily By Mouth False Dulcolax (bisacodyl) 10 mg rectal suppository 10 mg Rectal Once daily For CONSTIPATION *MAY HOLD FOR LOOSE STOOLS* 10 mg 2023 Active 2023 38108 27790 1 Once daily Rectal False Gabapentin 300 mg capsule [generic] 300 mg By Mouth 3 times a day For NEUROPATHY 300 mg 2023 Active 2023 41311 36677 4 3 times a day By Mouth False Potassium citrate ER 15 mEq (1,620 mg) tablet,exte nded release [generic] 15 mEq By Mouth 3 times a day For SUPPLEMENT/DI URETIC USE/HYPOCITRA URIA 15 mEq 06/11 Inactiv e 2023 02034 22641 1 3 times a day By Mouth False Potassium chloride ER 20 mEq tablet,exte nded release [generic] 20 mEq By Mouth 3 times a day *DO NOT CRUSH, CHEW OR BREAK* For SUPPLEMENT 20 mEq 12/18 Inactiv e 2023 37604 07103 1 3 times a day By Mouth False Tizanidine 4 mg tablet [generic] 4 mg By Mouth Once daily For MUSCLE SPASMS 4 mg 2023 Active 2023 64647 53177 0 Once daily By Mouth False Tylenol 325 mg tablet 2 tabs By Mouth Every 4 hours as needed For Fever >100 DO NOT EXCEED 3000 MG APAP/24 Hours 2 tabs 12/20 Inactiv e 2023 87071 47610 0 Every 4 hours as needed By Mouth False Dulcolax (bisacodyl) 10 mg rectal suppository Daily as needed For Constipation 1 sup 12/20 Inactiv e 2023 20807 79339 1 Daily as needed Rectal False Fleet Enema 19 gram-7 gram/118 mL 1 Rectal Daily as neededFor Constipation 1 12/20 Inactiv e 2023 14725 10268 6 Daily as needed Rectal False Milk of Magnesia 400 mg/5 mL oral suspension [Magnesium hydroxide] PRN 30ml By Mouth Daily as needed for constipation one time daily if no BM, on day 4 of no BM (PRN refer to instructions) For Constipation For Constipatioin 30ml 12/20 Inactiv e 2023 94234 29259 6 1 time By Mouth False Melatonin 3 mg tablet [generic] 3 mg By Mouth Once daily As Needed For INSOMNIA 3 mg 12/20 Inactiv e 2023 83696 10700 8 Once daily By Mouth False Hydrocortis one 1 % topical cream [generic] 1 % Rectal Four times daily as needed For hemorroid pain 1 % 12/20 Inactiv e 2023 98551 84204 1 Four times daily as needed Rectal False X-STGH ANTACID 750MG CHEW TAKE (1) TABLET BY MOUTH THREE TIMES DAILY NEEDED FOR INDIGESTION 12/20 Inactiv e 2023 79009 24410 4 Three times daily as needed Saline Mist 0.65 % nasal spray aerosol 0.65 % Nares Four times daily as needed For DRYNESS 0.65 % 12/20 Inactiv e 2023 63801 27782 8 Four times daily as needed Nares False Vicks Vaporub 4.7 %-1.2 %-2.6 % topical ointment Apply topically to chest Three times daily as needed For CONGESTION 4.7-1.2 -2.6 12/20 Inactiv e 2023 80454 21809 1 Three times daily as needed Topica l False VITAMIN D3 2000U CAP TAKE ONE (1) CAPSULE BY MOUTH DAILY* DO NOT CRUSH, CHEW OR BREAK* For Supplement 1 capsule 12/19 Inactiv e 2023 43826 23665 0 Once daily By Mouth False Potassium chloride ER 20 mEq tablet,exte nded release(par t/cryst) [generic] TAKE (1) TABLET BY MOUTH THREE TIMES DAILY (MORNING, AFTERNOON, EVENING)*DO NOT CRUSH, CHEW, OR BREAK* For SUPPLEMENT 20 MEQ 06/11 Inactiv e 2023 98836 69138 5 3 times a day By Mouth False Aspirin 81 mg tablet,camron yed release [generic] TAKE ONE (1) TABLET BY MOUTH ONCE DAILY*DO NOT CRUSH, CHEW OR BREAK* For CAD 81 MG 12/22 Inactiv e 2023 88234 57891 0 Once daily By Mouth False Furosemide 20 mg tablet [generic] TAKE 1 AND 1/2 TABLETS (30MG) BY MOUTH ONCE DAILY For CHF 30mg 2023 Active 2023 89161 59639 1 Once daily By Mouth False Polyethylen e glycol 3350 17 gram/dose oral powder [generic] MIX 17 GRAMS (1 CAPFUL) IN 60Z OF LIQUID AND DRINK BY MOUTH ONCE DAILY *HOLD FOR LOOSE STOOLS* For constipation 17 g 2023 Active 2023 58473 52111 3 Once daily By Mouth False Vitamin D3 50 mcg (2,000 unit) capsule Once daily TAKE ONE (1) CAPSULE BY MOUTH DAILY* DO NOT CRUSH, CHEW OR BREAK* For Supplement 1 capsule 02/07 Inactiv e 2023 10436 62344 2 Once daily By Mouth False Fleet Enema 19 gram-7 gram/118 mL 1 Rectal Daily as neededFor Constipation 1 2023 0000 Active 2023 86159 08292 6 Daily as needed Rectal False Tums E-X 300 mg (as calcium carbonate 750 mg) chewable tablet 1 tab By Mouth TAKE (1) TABLET BY MOUTH THREE TIMES DAILY NEEDED FOR INDIGESTION 1 tab 202300 /0000 Active 2023 35276 44127 1 Three times daily as needed By Mouth False Tylenol 325 mg tablet 2 tabs By Mouth Every 4 hours as needed For Fever >100 DO NOT EXCEED 3000 MG APAP/24 Hours 2 tabs 202300 /0000 Active 2023 97881 38178 0 Every 4 hours as needed By Mouth False Vicks Vaporub 4.7 %-1.2 %-2.6 % topical ointment Apply topically to chest Three times daily as needed For CONGESTION topical 202300 Active 2023 21729 92909 1 Three times daily as needed Topica l False Tylenol 325 mg tablet 2 tabs By Mouth Every 4 hours as needed For DX- PAIN PRN FOR MILD PAIN, DO NOT EXCEED 3000MG APAP/24 HOURS 2 tabs 202300 Active 2023 00284 55932 0 Every 4 hours as needed By Mouth False Tramadol 50 mg tablet [generic] 1 tab By Mouth Every 4 hours as needed For DX- PAIN 5-10 1 tab 03/10 Inactiv e 2023 13628 60348 0 Every 4 hours as needed By Mouth False Saline Mist 0.65 % nasal spray aerosol 2 sprays Nares Four times daily as needed For DRYNESS 2 sprays 202300 / Active 2023 12262 37592 8 Four times daily as needed Nares False Dulcolax (bisacodyl) 10 mg rectal suppository Daily as needed For Constipation 1 sup 202300 / Active 2023 56462 64299 1 Daily as needed Rectal False Hydrocortis one-pramoxi ne 1 %-1 % rectal cream [generic] 1 mague Rectal Four times daily as needed For hemorroid pain 1 mague 202300 /0000 Active 2023 76442 57022 4 Four times daily as needed Rectal False Melatonin 3 mg tablet [generic] 1 tab By Mouth At bedtime as needed For INSOMNIA 1 tab 12/24 Inactiv e 2023 85726 13524 8 At bedtime as needed By Mouth False Milk of Magnesia 400 mg/5 mL oral suspension 30ml By Mouth Daily as needed Daily as needed for constipation one time daily if no BM, on day 4 of no BM (PRN refer to instructions) For Constipation For Constipatioin 30ml 2023 Active 2023 83937 28891 2 Daily as needed By Mouth False Baclofen 20 mg tablet [generic] 20 mg By Mouth 4 times a day For MUSCLE SPASMS 20 mg 2023 Active 2023 82742 53049 1 4 times a day By Mouth False Melatonin 3 mg tablet [generic] 1 tab By Mouth At bedtime as needed For INSOMNIA 1 tab 2023 Active 2023 43127 78882 8 At bedtime as needed By Mouth False Bactrim DS 800 mg-160 mg tablet 1 tab By Mouth Twice daily For URINARY TRACT INFECTION, SITE NOT SPECIFIED 1 tab 01/06 Inactiv e 2023 28561 20383 1 Twice daily By Mouth N39.0 False Cefdinir 300 mg capsule [generic] 300 mg By Mouth Twice daily For UTI 300 mg 01/07 Inactiv e 2023 15762 34823 0 Twice daily By Mouth False Cefdinir 300 mg capsule [generic] 300 mg By Mouth Twice daily For UTI 300 mg 01/17 Inactiv e 2023 02423 46463 0 Twice daily By Mouth False Zyrtec 10 mg tablet 10 mg By Mouth Once daily For sinus congestion 10 mg 01/22 Inactiv e 2023 56951 18657 0 Once daily By Mouth False Tobramycin 0.3 %-dexametha sone 0.1 % eye drops,suspe nsion [generic] 0.3-0.1 % Left Eye 4 times a day For eye infection 0.3-0.1 % 02/05 Inactiv e 2023 87557 09331 5 4 times a day Left Eye False Fluconazole 150 mg tablet [generic] 150 mg By Mouth 1 time For yeast infection 150 mg 02/15 Inactiv e 2023 36851 74284 2 1 time By Mouth False Tramadol 50 mg tablet [generic] 1 tab By Mouth Every 4 hours as needed For DX- PAIN 5-10 1 tab 2023 00/00 /0000 Active 2023 00350 67946 0 Every 4 hours as needed By Mouth False Tobramycin 0.3 %-dexametha sone 0.1 % eye drops,suspe nsion [generic] 1 drop Left Eye 4 times a day For Inflammation of left eye 1 drop 05/08 Inactiv e 2023 99640 99525 5 4 times a day Left Eye False Voltaren Arthritis Pain 1 % topical gel 2 gm Topical Twice daily to rigth shoulder for 2 weeks For pain 2 gm 05/08 Inactiv e 2023 33793 93181 1 Twice daily Topica l False Chlorthalid one 25 mg tablet [generic] 12.5mg By Mouth Once daily For HTN 12.5mg 05/06 Inactiv e 2023 42368 07844 0 Once daily By Mouth False Chlorthalid one 25 mg tablet [generic] 12.5mg By Mouth Once daily For HTN 12.5mg 05/07 Inactiv e 2023 95312 72748 0 Once daily By Mouth False Chlorthalid one 25 mg tablet [generic] 05/07 Inactiv e 2023 44006 79188 0 Chlorthalid one 25 mg tablet [generic] 12.5mg By Mouth Once daily For HTN 12.5mg 06/26 Inactiv e 2023 39262 37298 0 Once daily By Mouth False Norvasc 5 mg tablet 5mg By Mouth Once daily, hold medication if systolic is less than 90 For HYPERTENSIVE HEART DISEASE WITHOUT HEART FAILURE 5mg 06/03 Inactiv e 2023 33587 93016 1 Once daily By Mouth I11.9 False Norvasc 5 mg tablet 5mg By Mouth Once daily, hold medication if systolic is less than 90 For HYPERTENSIVE HEART DISEASE WITHOUT HEART FAILURE 5mg 06/03 Inactiv e 2023 54289 53206 1 Once daily By Mouth I11.9 False Norvasc 5 mg tablet 5mg By Mouth Once daily, hold medication if systolic is less than 90 For HYPERTENSIVE HEART DISEASE WITHOUT HEART FAILURE 5mg 06/26 Inactiv e 2023 19219 74707 1 Once daily By Mouth I11.9 False [...] 10 mg 2023 00/00 /0000 Active 2023 13722 24919 1 Once daily By Mouth False DISCONTINUE [...] CAD 81 mg 06/14 Inactiv e 2023 18853 42119 9 Once daily By Mouth False Aspirin 81 mg tablet,camron yed release [generic] 06/14 Inactiv e 2023 27834 02197 9 Aspirin 81 mg tablet,camron yed release [generic] 81 mg By Mouth Once daily Do not crush, chew, or break For CAD 81 mg 06/154 Inactiv e 2023 33422 73474 9 Once daily By Mouth False Cefpodoxime 200 mg tablet [generic] 200mg By Mouth Twice daily For UTI 200mg 07/04 Inactiv e 2023 76448 82515 0 Twice daily By Mouth False Calcium citrate 250 mg tablet [generic] 06/26 Inactiv e 2023 56817 87173 6 Calcium citrate 250 mg tablet [generic] Once daily TAKE 4 TABLETS (1000MG) BY MOUTH For SUPPLEMENT 500 MG 2023 Active 2023 78546 13653 6 Once daily By Mouth False Norvasc 5 mg tablet 7.5 mg By Mouth Once daily Hold medication if SBP <90 For HYPERTENSIVE HEART DISEASE WITHOUT HEART FAILURE 7.5 mg 06/30 Inactiv e 2023 02500 75339 1 Once daily By Mouth I11.9 False Norvasc 5 mg tablet 7.5 mg By Mouth Once daily Hold medication if SBP <90 For HYPERTENSIVE HEART DISEASE WITHOUT HEART FAILURE 7.5 mg 07/06 Inactiv e 2023 52998 43485 1 Once daily By Mouth I11.9 False Simethicone 125 mg capsule [generic] 2 capule By Mouth Twice daily as needed For bloating/gas pain 2 capule 2023 Active 2023 46137 01215 0 Twice daily as needed By Mouth False Cepacol Sore Throat (benzocaine -menthol) 15 mg-2.6 mg lozenges 2 lozenges By Mouth Every 6 hours as needed For sore throat 2 lozenge s 2023 Active 2023 25853 41045 6 Every 6 hours as needed By Mouth False Cefepime 1 gram solution for injection [generic] 1g Intramuscular Every 12 hours 1g intramuscular ly ever 12 hours For UTI 1g 07/06 Inactiv e 2023 77218 43071 4 Every 12 hours Intram uscula r False Cefepime 1 gram solution for injection [generic] 07/06 Inactiv e 2023 04694 24278 4 Cefepime 1 gram solution for injection [generic] 1g Intramuscular Every 12 hours 1g intramuscular ly ever 12 hours For UTI Reconstitute with 2.4 ML of NSS. 1g 07/08 Inactiv e 2023 92128 18973 4 Every 12 hours Intram uscula r False Norvasc 5 mg tablet 07/06 Inactiv e 2023 25933 64717 1 I11.9 Norvasc 5 mg tablet 7.5 mg By Mouth Once daily Hold medication if SBP <90 For HYPERTENSIVE HEART DISEASE WITHOUT HEART FAILURE 7.5 mg 07/18 Inactiv e 2023 08236 10011 1 Once daily By Mouth I11.9 False Cefepime 1 gram solution for injection [generic] 07/08 Inactiv e 2023 91532 88710 4 Cefepime 1 gram solution for injection [generic] 1g Intramuscular Every 12 hours 1g intramuscular ly ever 12 hours For UTI Reconstitute with 2.4 ML of NSS. 1g 07/08 Inactiv e 2023 65327 11042 4 Every 12 hours Intram uscula r False Cefepime 1 gram solution for injection [generic] 07/08 Inactiv e 2023 21073 64536 4 Cefepime 1 gram solution for injection [generic] 1g Intramuscular Every 12 hours 1g intramuscular ly ever 12 hours For UTI Reconstitute with 2.4 ML of NSS. 1g 07/11 Inactiv e 2023 00799 44601 4 Every 12 hours Intram uscula r False Fleet Enema 19 gram-7 gram/118 mL 1 Rectal 1 time For constipation 1 07/16 Inactiv e 2024 21562 68437 6 1 time Rectal False Fleet Enema 19 gram-7 gram/118 mL 1 Rectal 1 time For constipation 1 07/17 Inactiv e 2024 02116 84165 6 1 time Rectal False Norvasc 5 mg tablet 7.5 mg By Mouth Once daily For HYPERTENSIVE HEART DISEASE WITHOUT HEART FAILURE 7.5 mg 2024 0000 /0000 Active 2024 91329 97155 1 Once daily By Mouth I11.9 False Potassium chloride ER 20 mEq tablet,exte nded release(par t/cryst) [generic] 40 mEq By Mouth 1 time For low potassium prior to surgery 40 mEq 07/18 Inactiv e 2024 78055 07792 1 1 time By Mouth False Potassium chloride ER 20 mEq tablet,exte nded release(par t/cryst) [generic] 40 mEq By Mouth 1 time For low potassium prior to surgery 40 mEq 07/18 Inactiv e 2024 28599 27053 1 1 time By Mouth False Potassium chloride ER 20 mEq tablet,exte nded release(par t/cryst) [generic] 40 mEq By Mouth 1 time For low potassium 40 mEq 07/18 Inactiv e 2024 67142 84276 1 1 time By Mouth False Potassium chloride ER 20 mEq tablet,exte nded release(par t/cryst) [generic] 40 mEq By Mouth 1 time For low potassium 40 mEq 07/18 Inactiv e 2024 79955 04880 1 1 time By Mouth False Potassium chloride ER 20 mEq tablet,exte nded release [generic] 2 By Mouth 1 time For low potassium 2 07/19 Active 2024 97255 93604 1 1 time By Mouth False Nystatin 100,000 unit/gram topical cream [generic] 100,000 unit Topical As Needed For DX- EXCORIATION 100,000 unit 12/12 Inactiv e 2023 63172 69279 5 Topica l False Vicks Vaporub 4.7 %-1.2 %-2.6 % topical ointment 4.7-1.2-2.6 Topical 3 times a day As Needed For DX- CONGESTION 4.7-1.2 -2.6 12/12 Inactiv e 2023 01069 00859 1 3 times a day Topica l False Ketoconazol e 2 % shampoo [generic] APPLY SHAMPOO TOPICALLY TO SCALP DURING HAIR WASHINGDX: ELVIA DERM OF SCALP For DX- ELVIA DERM OF SCALP 12/12 Inactiv e 2023 21105 60925 4 Topica l False THERA SILICONE SKIN GUARD Topical Twice daily 1 APPLICATION TOPICALLY IN THE MORNING AND AT BEDTIME TO SCROTUM For DX- PREVENTION 202300 /0000 Active 2023 Twice daily Topica l False Selenium sulfide 2.5 % lotion [generic] 2.5 % Topical EVERY MONDAY, MONDAY AND MONDAY AFTER SHOWER For DANDRUFF 2.5 % 2023 Active 2023 27868 15567 4 3 times a week Topica l False Nystatin (bulk) 100 million unit powder [generic] 100 million Topical Twice daily as needed For EXOCORATION 100 million 12/20 Inactiv e 2023 49979 43252 1 Twice daily as needed Topica l False Ketoconazol e 2 % shampoo [generic] Once daily APPLY SHAMPOO TOPICALLY TO SCALP DURING HAIR WASHING ON SHOWER DAYS- , , MON For ELVIA DERM OF SCAP 2 % 202300 /0000 Active 2023 24313 82165 4 Once daily Topica l False Nystatin 100,000 unit/gram topical cream [generic] 1 mague Topical Twice daily as needed For EXOCORATION 1 mague 06/05 Inactiv e 2023 59399 23583 5 Twice daily as needed Topica l False Nystatin 100,000 unit/gram topical powder [generic] 100,000 unit Topical Twice daily to scrotum with AM and PM care For Scrotal excoriation 100,000 unit 06/05 Inactiv e 2023 66690 89786 5 Twice daily Topica l False Problems [...] weight Temperature SpO2 Blood Sugar Pulse Respirations 210 12160 6 80.00 mm[Hg] - Sitting 132.00 mm[Hg] - Sitting 211 09548 5 78.00 mm[Hg] - Sitting 125.00 mm[Hg] - Sitting 216 47045 1 254.10 NI 216 71228 2 79.00 mm[Hg] - Sitting 157.00 mm[Hg] - Sitting 73 NI 254.10 NI 36.30 Tympanic 95.00 % 72.00/ min 16.00/min 37049 216 21261 4 98.80 Tympanic 00437 216 47661 2 78.00 mm[Hg] - Sitting 164.00 mm[Hg] - Sitting 85989 217 56563 3 98.20 Tympanic 06896 217 13952 5 73.00 mm[Hg] - Sitting 159.00 mm[Hg] - Sitting 32580 217 21652 9 98.40 Forehead Scan 46426 218 11693 3 97.90 Tympanic 49103 218 29226 5 77.00 mm[Hg] - Sitting 137.00 mm[Hg] - Sitting 92498 219 02529 0 97.70 Tympanic 02904 219 59539 6 97.60 Tympanic 48382 219 60901 4 76.00 mm[Hg] - Sitting 139.00 mm[Hg] - Sitting 29331 219 99277 4 97.80 Forehead Scan 12035 220 78712 9 97.90 Tympanic 56169 220 73063 9 76.00 mm[Hg] - Sitting 138.00 mm[Hg] - Sitting 97721 220 02608 6 98.10 Tympanic 63763 221 67293 5 67.00 mm[Hg] - Sitting 142.00 mm[Hg] - Sitting 73455 221 02050 8 98.20 Tympanic 57556 221 48962 0 98.30 Tympanic 71506 222 35004 7 98.20 Tympanic 48461 222 12484 8 97.90 Tympanic 20992 223 06008 3 98.20 Tympanic 50836 223 02338 3 98.00 Tympanic 04772 224 11605 0 59.00 mm[Hg] - Sitting 111.00 mm[Hg] - Sitting 98.40 Forehead Scan 95.00 % 56.00/ min 18.00/min 71703 224 62393 9 98.20 Forehead Scan 10978 224 41380 3 97.90 Tympanic 18452 225 95514 4 98.20 Tympanic 46567 225 88998 8 97.50 Forehead Scan 02181 228 58753 0 55.00 mm[Hg] - Sitting 118.00 mm[Hg] - Sitting 98.40 Tympanic 69.00/ min 39060 229 20915 8 78.00 mm[Hg] - Sitting 152.00 mm[Hg] - Sitting 43267 230 79564 0 62.00 mm[Hg] - Sitting 122.00 mm[Hg] - Sitting 92264 231 09339 7 72.00 mm[Hg] - Lying Down 140.00 mm[Hg] - Lying Down 58889 101 81539 3 97.70 Forehead Scan 51276 101 88905 1 254.10 NI 69.00/ min 21376 101 57894 9 72.00 mm[Hg] - Sitting 142.00 mm[Hg] - Sitting 97.70 Tympanic 18.00/min 40899 101 29216 3 72.00 mm[Hg] - Lying Down 142.00 mm[Hg] - Lying Down 34248 102 83048 8 68.00 mm[Hg] - Lying Down 152.00 mm[Hg] - Lying Down 23801 103 62397 5 74.00 mm[Hg] - Sitting 158.00 mm[Hg] - Sitting 67647 104 95099 9 78.00 mm[Hg] - Sitting 144.00 mm[Hg] - Sitting 75178 105 77234 5 68.00 mm[Hg] - Sitting 138.00 mm[Hg] - Sitting 88703 106 05205 1 70.00 mm[Hg] - Sitting 138.00 mm[Hg] - Sitting 70292 107 62504 1 67.00 mm[Hg] - Sitting 142.00 mm[Hg] - Sitting 77355 108 70781 0 74.00 mm[Hg] - Sitting 143.00 mm[Hg] [...]
--- OUTSIDE RECORDS SUMMARY | 2024-07-26 11:17 | External Medical Summary | Continuity Of Care Document ---
Author Name Unknown Address [address] [address] [facility] () Care Team Providers Care Crm Consultant Name Role Phone DO Pritchett Amy Primary Care Provider [phone] Allergies Allergy Reaction Start Date End Date Status AMINOGLYCOSIDES Active CIPRO Active GENTAMICIN Active NSAIDS (NON-STEROIDAL ANTI-INFLAMMATORY DRUG) 0 Active IBUPROFEN Active QUINOLONES Active VALIUM Active Medications Medication Instructions Dosage Start Date End Date Status Order Date Drug Code Frequency Route of Admin Diagnosis Code Substitutions Allowed Spikevax [id number](1 2y up)(PF) 50 mcg/0.5 mL intramuscul ar suspension [COVID uyc85-11(12 up)(andu)(P F)] 0.5mL Intramuscular 1 time Monitory 15 Minutes post injection for adverse effects; record site/temp For COVID 19 PREVENTION 0.5mL 01/02 Inactiv e 2023 13043 15715 4 1 time Intram uscula r False [facility] - Nurse initials indicate verificatio n that [id number] vaccine was administere d by [facility] Representat jon 1 Intramuscular 1 time ( Indicate vaccine type) For vaccine 1 05/03 Inactiv e 2023 1 time Intram uscula r False Lisinopril 40 mg tablet [generic] TAKE ONE (1) TABLET BY MOUTH IN THE MORNING. For DX- HTN 1 2023 Active 2023 40130 16845 1 Once daily By Mouth False Tizanidine 2 mg tablet [generic] TAKE ONE (1) TABLET BY MOUTH ONCE DAILY For MUSCLE SPASM 1 2023 Active 2023 36636 65742 0 Once daily By Mouth M62.838 False Tamsulosin 0.4 mg capsule [generic] TAKE (1) CAPSULE BY MOUTH AT BEDTIME For SPASMS 1 2023 Active 2023 19860 63977 0 Once daily By Mouth False Aspirin 81 mg tablet Once daily 1 TABLET BY MOUTH IN THE MORNING For DX- CAD DO NOT CRUSH, CHEW OR BREAK 81 mg 06/12 Inactiv e 2023 Once daily By Mouth False Baclofen 20 mg tablet [generic] 20 mg By Mouth 4 times a day For DX- MUSCLE SPASMS 20 mg 12/12 Inactiv e 2023 98571 77979 1 4 times a day By Mouth False Calcium citrate 250 mg tablet Once daily 4 TABLET BY MOUTH For DX- SUPPLEMENT 250 mg calci 12/12 Inactiv e 2023 Once daily By Mouth False Co Q-10 100 mg capsule 100 mg By Mouth Once daily For DX- SUPPLEMENT 100 mg 06/20 Inactiv e 2023 65484 23630 5 Once daily By Mouth False Furosemide 20 mg tablet [generic] 20 mg By Mouth Once daily For DX-CHF 20 mg 12/12 Inactiv e 2023 71610 73956 0 Once daily By Mouth False Gabapentin 300 mg capsule [generic] 300 mg By Mouth 3 times a day For DX- NEUROPATHY 300 mg 12/12 Inactiv e 2023 90920 75255 4 3 times a day By Mouth False Loratadine 10 mg tablet [generic] 10 mg By Mouth Once daily For DX- ALLERGIES 10 mg 2023 Active 2023 37397 73611 1 Once daily By Mouth False Miralax 17 gram/dose oral powder 17 gram/dose By Mouth IN THE MORNING Mix 1 TABLESPOON IN 8 OZ OF FLUID HOLD FOR LOOSE STOOLS For DX- CONSTIPATION 17 gram/do se 12/12 Inactiv e 2023 24465 26731 0 Once daily By Mouth False Paroxetine 30 mg tablet [generic] 30 mg By Mouth Once daily For DX- DEPRESSION 30 mg 2023 00/00 /0000 Active 2023 38418 61351 3 Once daily By Mouth False Potassium citrate ER 15 mEq (1,620 mg) tablet,exte nded release [generic] 15 mEq By Mouth 3 times a day For DX- SUPPLEMENT/DI URETIC USE/ HYPOCITRAUIRA DO NOT CRUSH 15 mEq 12/12 Inactiv e 2023 05723 97599 1 3 times a day By Mouth [...] For DX- DANDRUFF 12/12 Inactiv e 2023 84289 97174 4 3 times a week Topica l False Acetaminoph en 325 mg tablet [generic] TAKE 2 TABS (650MG) BY MOUTH EVERY 4 HOURS NEEDED FOR TEMP >100 NOT TO EXCEED 3GM/24HRS TAKE 2 TABS (650MG) BY MOUTH EVERY 4 HOURS NEEDED FOR TEMP >100 NOT TO EXCEED 3GM/24HRS For DX-FEVER 2 12/12 Inactiv e 2023 17985 82599 0 By Mouth False MILK OF MAGNESIA ADMINISTER 30 ML BY MOUTH ONCE DAILY NEEDED FOR CONSTIPATION X3 DAYS WITH NO BM. For DX- CONSTIPATION 30ML 12/12 Inactiv e 2023 61818 37331 9 By Mouth False Enema Disposable 19 gram-7 gram/118 mL ADMINISTER ONE ENEMA RECTALLY ONCE DAILY NEEDED FOR CONSTIPATION ON DAY 6 OF NO BM For DX- CONSTIPATION 12/12 Inactiv e 2023 13573 31407 1 Rectal False TUMS EXTRA STR 750MG TAKE (1) TABLET BY MOUTH THREE TIMES DAILY NEEDED FOR INDIGESTION For DX- INDIGESTION 1 12/12 Inactiv e 2023 95540 14695 8 By Mouth False Vitamin D3 25 [...] CONSTIPATION 10 mg 12/12 Inactiv e 2023 98351 73654 1 Rectal False Melatonin 3 mg tablet [generic] 3 mg By Mouth As Needed For DX-INSOMMIA 3 mg 12/12 Inactiv e 2023 82487 04776 8 By Mouth False Hydrocortis one 1 % topical cream [generic] 1 % Topical As Needed For DX- PAIN 1 % 12/12 Inactiv e 2023 22735 73123 1 Topica l False HYDROCORTIS ONE/PARMOXI NE [...] 5-10 50 mg 12/20 Inactiv e 2023 98434 27081 0 Every 4 hours as needed By Mouth False Tylenol 325 mg tablet 325 mg By Mouth Every 4 hours as needed For DX- PAIN PRN FOR MILD PAIN, DO NOT EXCEED 3000MG APAP/24 HOURS 325 mg 12/20 Inactiv e 2023 53276 97498 0 Every 4 hours as needed By Mouth False Baclofen 20 mg tablet [generic] 20 mg By Mouth 4 times a day For MUSCLE SPASMS 20 mg 12/20 Inactiv e 2023 39611 60243 1 4 times a day By Mouth False Calcium citrate 250 mg tablet [generic] Once daily TAKE 4 TABLETS (1000MG) BY MOUTH For SUPPLEMENT 1000 MG 06/26 Inactiv e 2023 40357 55523 6 Once daily By Mouth False Dulcolax (bisacodyl) 10 mg rectal suppository 10 mg Rectal Once daily For CONSTIPATION *MAY HOLD FOR LOOSE STOOLS* 10 mg 2023 Active 2023 97483 90528 1 Once daily Rectal False Gabapentin 300 mg capsule [generic] 300 mg By Mouth 3 times a day For NEUROPATHY 300 mg 2023 Active 2023 82792 70930 4 3 times a day By Mouth False Potassium citrate ER 15 mEq (1,620 mg) tablet,exte nded release [generic] 15 mEq By Mouth 3 times a day For SUPPLEMENT/DI URETIC USE/HYPOCITRA URIA 15 mEq 06/11 Inactiv e 2023 25672 65145 1 3 times a day By Mouth False Potassium chloride ER 20 mEq tablet,exte nded release [generic] 20 mEq By Mouth 3 times a day *DO NOT CRUSH, CHEW OR BREAK* For SUPPLEMENT 20 mEq 12/18 Inactiv e 2023 13028 58920 1 3 times a day By Mouth False Tizanidine 4 mg tablet [generic] 4 mg By Mouth Once daily For MUSCLE SPASMS 4 mg 2023 Active 2023 08431 15396 0 Once daily By Mouth False Tylenol 325 mg tablet 2 tabs By Mouth Every 4 hours as needed For Fever >100 DO NOT EXCEED 3000 MG APAP/24 Hours 2 tabs 12/20 Inactiv e 2023 56871 14445 0 Every 4 hours as needed By Mouth False Dulcolax (bisacodyl) 10 mg rectal suppository Daily as needed For Constipation 1 sup 12/20 Inactiv e 2023 44179 15531 1 Daily as needed Rectal False Fleet Enema 19 gram-7 gram/118 mL 1 Rectal Daily as neededFor Constipation 1 12/20 Inactiv e 2023 61990 36028 6 Daily as needed Rectal False Milk of Magnesia 400 mg/5 mL oral suspension [Magnesium hydroxide] PRN 30ml By Mouth Daily as needed for constipation one time daily if no BM, on day 4 of no BM (PRN refer to instructions) For Constipation For Constipatioin 30ml 12/20 Inactiv e 2023 53293 62042 6 1 time By Mouth False Melatonin 3 mg tablet [generic] 3 mg By Mouth Once daily As Needed For INSOMNIA 3 mg 12/20 Inactiv e 2023 03571 54421 8 Once daily By Mouth False Hydrocortis one 1 % topical cream [generic] 1 % Rectal Four times daily as needed For hemorroid pain 1 % 12/20 Inactiv e 2023 53553 17897 1 Four times daily as needed Rectal False X-STGH ANTACID 750MG CHEW TAKE (1) TABLET BY MOUTH THREE TIMES DAILY NEEDED FOR INDIGESTION 12/20 Inactiv e 2023 58473 10058 4 Three times daily as needed Saline Mist 0.65 % nasal spray aerosol 0.65 % Nares Four times daily as needed For DRYNESS 0.65 % 12/20 Inactiv e 2023 43726 66984 8 Four times daily as needed Nares False Vicks Vaporub 4.7 %-1.2 %-2.6 % topical ointment Apply topically to chest Three times daily as needed For CONGESTION 4.7-1.2 -2.6 12/20 Inactiv e 2023 64465 01821 1 Three times daily as needed Topica l False VITAMIN D3 2000U CAP TAKE ONE (1) CAPSULE BY MOUTH DAILY* DO NOT CRUSH, CHEW OR BREAK* For Supplement 1 capsule 12/19 Inactiv e 2023 87537 64628 0 Once daily By Mouth False Potassium chloride ER 20 mEq tablet,exte nded release(par t/cryst) [generic] TAKE (1) TABLET BY MOUTH THREE TIMES DAILY (MORNING, AFTERNOON, EVENING)*DO NOT CRUSH, CHEW, OR BREAK* For SUPPLEMENT 20 MEQ 06/11 Inactiv e 2023 59310 38150 5 3 times a day By Mouth False Aspirin 81 mg tablet,camron yed release [generic] TAKE ONE (1) TABLET BY MOUTH ONCE DAILY*DO NOT CRUSH, CHEW OR BREAK* For CAD 81 MG 12/22 Inactiv e 2023 78982 42642 0 Once daily By Mouth False Furosemide 20 mg tablet [generic] TAKE 1 AND 1/2 TABLETS (30MG) BY MOUTH ONCE DAILY For CHF 30mg 2023 Active 2023 28505 76986 1 Once daily By Mouth False Polyethylen e glycol 3350 17 gram/dose oral powder [generic] MIX 17 GRAMS (1 CAPFUL) IN 60Z OF LIQUID AND DRINK BY MOUTH ONCE DAILY *HOLD FOR LOOSE STOOLS* For constipation 17 g 2023 Active 2023 81272 19793 3 Once daily By Mouth False Vitamin D3 50 mcg (2,000 unit) capsule Once daily TAKE ONE (1) CAPSULE BY MOUTH DAILY* DO NOT CRUSH, CHEW OR BREAK* For Supplement 1 capsule 02/07 Inactiv e 2023 82585 02978 2 Once daily By Mouth False Fleet Enema 19 gram-7 gram/118 mL 1 Rectal Daily as neededFor Constipation 1 2023 0000 Active 2023 68147 69597 6 Daily as needed Rectal False Tums E-X 300 mg (as calcium carbonate 750 mg) chewable tablet 1 tab By Mouth TAKE (1) TABLET BY MOUTH THREE TIMES DAILY NEEDED FOR INDIGESTION 1 tab 202300 /0000 Active 2023 38573 62081 1 Three times daily as needed By Mouth False Tylenol 325 mg tablet 2 tabs By Mouth Every 4 hours as needed For Fever >100 DO NOT EXCEED 3000 MG APAP/24 Hours 2 tabs 202300 /0000 Active 2023 05213 84761 0 Every 4 hours as needed By Mouth False Vicks Vaporub 4.7 %-1.2 %-2.6 % topical ointment Apply topically to chest Three times daily as needed For CONGESTION topical 202300 Active 2023 71498 24207 1 Three times daily as needed Topica l False Tylenol 325 mg tablet 2 tabs By Mouth Every 4 hours as needed For DX- PAIN PRN FOR MILD PAIN, DO NOT EXCEED 3000MG APAP/24 HOURS 2 tabs 202300 Active 2023 86796 84244 0 Every 4 hours as needed By Mouth False Tramadol 50 mg tablet [generic] 1 tab By Mouth Every 4 hours as needed For DX- PAIN 5-10 1 tab 03/10 Inactiv e 2023 89446 93663 0 Every 4 hours as needed By Mouth False Saline Mist 0.65 % nasal spray aerosol 2 sprays Nares Four times daily as needed For DRYNESS 2 sprays 202300 / Active 2023 05160 91616 8 Four times daily as needed Nares False Dulcolax (bisacodyl) 10 mg rectal suppository Daily as needed For Constipation 1 sup 202300 / Active 2023 29750 27760 1 Daily as needed Rectal False Hydrocortis one-pramoxi ne 1 %-1 % rectal cream [generic] 1 mague Rectal Four times daily as needed For hemorroid pain 1 mague 202300 /0000 Active 2023 35055 31788 4 Four times daily as needed Rectal False Melatonin 3 mg tablet [generic] 1 tab By Mouth At bedtime as needed For INSOMNIA 1 tab 12/24 Inactiv e 2023 41892 07614 8 At bedtime as needed By Mouth False Milk of Magnesia 400 mg/5 mL oral suspension 30ml By Mouth Daily as needed Daily as needed for constipation one time daily if no BM, on day 4 of no BM (PRN refer to instructions) For Constipation For Constipatioin 30ml 2023 Active 2023 11240 51089 2 Daily as needed By Mouth False Baclofen 20 mg tablet [generic] 20 mg By Mouth 4 times a day For MUSCLE SPASMS 20 mg 2023 Active 2023 24111 24631 1 4 times a day By Mouth False Melatonin 3 mg tablet [generic] 1 tab By Mouth At bedtime as needed For INSOMNIA 1 tab 2023 Active 2023 37619 43737 8 At bedtime as needed By Mouth False Bactrim DS 800 mg-160 mg tablet 1 tab By Mouth Twice daily For URINARY TRACT INFECTION, SITE NOT SPECIFIED 1 tab 01/06 Inactiv e 2023 68468 90730 1 Twice daily By Mouth N39.0 False Cefdinir 300 mg capsule [generic] 300 mg By Mouth Twice daily For UTI 300 mg 01/07 Inactiv e 2023 90909 22116 0 Twice daily By Mouth False Cefdinir 300 mg capsule [generic] 300 mg By Mouth Twice daily For UTI 300 mg 01/17 Inactiv e 2023 75493 91545 0 Twice daily By Mouth False Zyrtec 10 mg tablet 10 mg By Mouth Once daily For sinus congestion 10 mg 01/22 Inactiv e 2023 11885 03589 0 Once daily By Mouth False Tobramycin 0.3 %-dexametha sone 0.1 % eye drops,suspe nsion [generic] 0.3-0.1 % Left Eye 4 times a day For eye infection 0.3-0.1 % 02/05 Inactiv e 2023 80131 40485 5 4 times a day Left Eye False Fluconazole 150 mg tablet [generic] 150 mg By Mouth 1 time For yeast infection 150 mg 02/15 Inactiv e 2023 48805 21040 2 1 time By Mouth False Tramadol 50 mg tablet [generic] 1 tab By Mouth Every 4 hours as needed For DX- PAIN 5-10 1 tab 2023 00/00 /0000 Active 2023 14092 88057 0 Every 4 hours as needed By Mouth False Tobramycin 0.3 %-dexametha sone 0.1 % eye drops,suspe nsion [generic] 1 drop Left Eye 4 times a day For Inflammation of left eye 1 drop 05/08 Inactiv e 2023 71900 62144 5 4 times a day Left Eye False Voltaren Arthritis Pain 1 % topical gel 2 gm Topical Twice daily to rigth shoulder for 2 weeks For pain 2 gm 05/08 Inactiv e 2023 84041 08094 1 Twice daily Topica l False Chlorthalid one 25 mg tablet [generic] 12.5mg By Mouth Once daily For HTN 12.5mg 05/06 Inactiv e 2023 02421 50679 0 Once daily By Mouth False Chlorthalid one 25 mg tablet [generic] 12.5mg By Mouth Once daily For HTN 12.5mg 05/07 Inactiv e 2023 59245 54019 0 Once daily By Mouth False Chlorthalid one 25 mg tablet [generic] 05/07 Inactiv e 2023 33727 27789 0 Chlorthalid one 25 mg tablet [generic] 12.5mg By Mouth Once daily For HTN 12.5mg 06/26 Inactiv e 2023 65133 46169 0 Once daily By Mouth False Norvasc 5 mg tablet 5mg By Mouth Once daily, hold medication if systolic is less than 90 For HYPERTENSIVE HEART DISEASE WITHOUT HEART FAILURE 5mg 06/03 Inactiv e 2023 87684 75127 1 Once daily By Mouth I11.9 False Norvasc 5 mg tablet 5mg By Mouth Once daily, hold medication if systolic is less than 90 For HYPERTENSIVE HEART DISEASE WITHOUT HEART FAILURE 5mg 06/03 Inactiv e 2023 51029 01717 1 Once daily By Mouth I11.9 False Norvasc 5 mg tablet 5mg By Mouth Once daily, hold medication if systolic is less than 90 For HYPERTENSIVE HEART DISEASE WITHOUT HEART FAILURE 5mg 06/26 Inactiv e 2023 70274 34339 1 Once daily By Mouth I11.9 False [...] 10 mg 2023 00/00 /0000 Active 2023 94454 70063 1 Once daily By Mouth False DISCONTINUE [...] CAD 81 mg 06/14 Inactiv e 2023 12602 32610 9 Once daily By Mouth False Aspirin 81 mg tablet,camron yed release [generic] 06/14 Inactiv e 2023 42981 49497 9 Aspirin 81 mg tablet,camron yed release [generic] 81 mg By Mouth Once daily Do not crush, chew, or break For CAD 81 mg 06/154 Inactiv e 2023 02304 70566 9 Once daily By Mouth False Cefpodoxime 200 mg tablet [generic] 200mg By Mouth Twice daily For UTI 200mg 07/04 Inactiv e 2023 18601 48336 0 Twice daily By Mouth False Calcium citrate 250 mg tablet [generic] 06/26 Inactiv e 2023 83418 10362 6 Calcium citrate 250 mg tablet [generic] Once daily TAKE 4 TABLETS (1000MG) BY MOUTH For SUPPLEMENT 500 MG 2023 Active 2023 59159 66279 6 Once daily By Mouth False Norvasc 5 mg tablet 7.5 mg By Mouth Once daily Hold medication if SBP <90 For HYPERTENSIVE HEART DISEASE WITHOUT HEART FAILURE 7.5 mg 06/30 Inactiv e 2023 59233 57813 1 Once daily By Mouth I11.9 False Norvasc 5 mg tablet 7.5 mg By Mouth Once daily Hold medication if SBP <90 For HYPERTENSIVE HEART DISEASE WITHOUT HEART FAILURE 7.5 mg 07/06 Inactiv e 2023 30076 95757 1 Once daily By Mouth I11.9 False Simethicone 125 mg capsule [generic] 2 capule By Mouth Twice daily as needed For bloating/gas pain 2 capule 2023 Active 2023 40809 31375 0 Twice daily as needed By Mouth False Cepacol Sore Throat (benzocaine -menthol) 15 mg-2.6 mg lozenges 2 lozenges By Mouth Every 6 hours as needed For sore throat 2 lozenge s 2023 Active 2023 67961 18111 6 Every 6 hours as needed By Mouth False Cefepime 1 gram solution for injection [generic] 1g Intramuscular Every 12 hours 1g intramuscular ly ever 12 hours For UTI 1g 07/06 Inactiv e 2023 26039 20240 4 Every 12 hours Intram uscula r False Cefepime 1 gram solution for injection [generic] 07/06 Inactiv e 2023 74541 54938 4 Cefepime 1 gram solution for injection [generic] 1g Intramuscular Every 12 hours 1g intramuscular ly ever 12 hours For UTI Reconstitute with 2.4 ML of NSS. 1g 07/08 Inactiv e 2023 02813 41416 4 Every 12 hours Intram uscula r False Norvasc 5 mg tablet 07/06 Inactiv e 2023 49690 79670 1 I11.9 Norvasc 5 mg tablet 7.5 mg By Mouth Once daily Hold medication if SBP <90 For HYPERTENSIVE HEART DISEASE WITHOUT HEART FAILURE 7.5 mg 07/18 Inactiv e 2023 05962 11626 1 Once daily By Mouth I11.9 False Cefepime 1 gram solution for injection [generic] 07/08 Inactiv e 2023 11984 21699 4 Cefepime 1 gram solution for injection [generic] 1g Intramuscular Every 12 hours 1g intramuscular ly ever 12 hours For UTI Reconstitute with 2.4 ML of NSS. 1g 07/08 Inactiv e 2023 05395 78634 4 Every 12 hours Intram uscula r False Cefepime 1 gram solution for injection [generic] 07/08 Inactiv e 2023 54533 42579 4 Cefepime 1 gram solution for injection [generic] 1g Intramuscular Every 12 hours 1g intramuscular ly ever 12 hours For UTI Reconstitute with 2.4 ML of NSS. 1g 07/11 Inactiv e 2023 02921 74714 4 Every 12 hours Intram uscula r False Fleet Enema 19 gram-7 gram/118 mL 1 Rectal 1 time For constipation 1 07/16 Inactiv e 2024 86426 22182 6 1 time Rectal False Fleet Enema 19 gram-7 gram/118 mL 1 Rectal 1 time For constipation 1 07/17 Inactiv e 2024 83981 56582 6 1 time Rectal False Norvasc 5 mg tablet 7.5 mg By Mouth Once daily For HYPERTENSIVE HEART DISEASE WITHOUT HEART FAILURE 7.5 mg 2024 Active 2024 45050 72113 1 Once daily By Mouth I11.9 False Nystatin 100,000 unit/gram topical cream [generic] 100,000 unit Topical As Needed For DX- EXCORIATION 100,000 unit 12/12 Inactiv e 2023 73852 63922 5 Topica l False Vicks Vaporub 4.7 %-1.2 %-2.6 % topical ointment 4.7-1.2-2.6 Topical 3 times a day As Needed For DX- CONGESTION 4.7-1.2 -2.6 12/12 Inactiv e 2023 77202 07720 1 3 times a day Topica l False Ketoconazol e 2 % shampoo [generic] APPLY SHAMPOO TOPICALLY TO SCALP DURING HAIR WASHINGDX: ELVIA DERM OF SCALP For DX- ELVIA DERM OF SCALP 12/12 Inactiv e 2023 51483 94670 4 Topica l False THERA SILICONE SKIN GUARD Topical Twice daily 1 APPLICATION TOPICALLY IN THE MORNING AND AT BEDTIME TO SCROTUM For DX- PREVENTION 2023 Active 2023 Twice daily Topica l False Selenium sulfide 2.5 % lotion [generic] 2.5 % Topical EVERY MONDAY, MONDAY AND MONDAY AFTER SHOWER For DANDRUFF 2.5 % 2023 Active 2023 67057 60479 4 3 times a week Topica l False Nystatin (bulk) 100 million unit powder [generic] 100 million Topical Twice daily as needed For EXOCORATION 100 million 12/20 Inactiv e 2023 13631 57598 1 Twice daily as needed Topica l False Ketoconazol e 2 % shampoo [generic] Once daily APPLY SHAMPOO TOPICALLY TO SCALP DURING HAIR WASHING ON SHOWER DAYS- , , MON For ELVIA DERM OF SCAP 2 % 2023 Active 2023 78902 27805 4 Once daily Topica l False Nystatin 100,000 unit/gram topical cream [generic] 1 mague Topical Twice daily as needed For EXOCORATION 1 mague 06/05 Inactiv e 2023 83536 57748 5 Twice daily as needed Topica l False Nystatin 100,000 unit/gram topical powder [generic] 100,000 unit Topical Twice daily to scrotum with AM and PM care For Scrotal excoriation 100,000 unit 06/05 Inactiv e 2023 10112 17334 5 Twice daily Topica l False Problems [...] weight Temperature SpO2 Blood Sugar Pulse Respirations 44691 210 97512 6 80.00 mm[Hg] - Sitting 132.00 mm[Hg] - Sitting 75235 211 07085 5 78.00 mm[Hg] - Sitting 125.00 mm[Hg] - Sitting 75175 216 98980 1 254[place]10 [place] [address] 216 53564 2 79.00 mm[Hg] - Sitting 157.00 mm[Hg] - Sitting 73 NI 254.10 NI 36.30 Tympanic 95.00 % 72.00/ min 16.00/min 19940 216 88135 4 98.80 Tympanic 87948 216 27772 2 78.00 mm[Hg] - Sitting 164.00 mm[Hg] - Sitting 31446 217 65301 3 98.20 Tympanic 76614 217 42938 5 73.00 mm[Hg] - Sitting 159.00 mm[Hg] - Sitting 86419 217 53352 9 98.40 Forehead Scan 35739 218 56097 3 97.90 Tympanic 26770 218 27283 5 77.00 mm[Hg] - Sitting 137.00 mm[Hg] - Sitting 81326 219 41584 0 97.70 Tympanic 67138 219 30528 6 97.60 Tympanic 85116 219 61280 4 76.00 mm[Hg] - Sitting 139.00 mm[Hg] - Sitting 04505 219 18498 4 97.80 Forehead Scan 24639 220 20176 9 97.90 Tympanic 70811 220 80706 9 76.00 mm[Hg] - Sitting 138.00 mm[Hg] - Sitting 34246 220 68528 6 98.10 Tympanic 52072 221 14276 5 67.00 mm[Hg] - Sitting 142.00 mm[Hg] - Sitting 23021 221 47520 8 98.20 Tympanic 54745 221 59769 0 98.30 Tympanic 99466 222 82990 7 98.20 Tympanic 93211 222 58162 8 97.90 Tympanic 64997 223 58068 3 98.20 Tympanic 66200 223 08159 3 98.00 Tympanic 02090 224 34569 0 59.00 mm[Hg] - Sitting 111.00 mm[Hg] - Sitting 98.40 Forehead Scan 95.00 % 56.00/ min 18.00/min 54457 224 93144 9 98.20 Forehead Scan 88577 224 23960 3 97.90 Tympanic 87475 225 98766 4 98.20 Tympanic 34902 225 91605 8 97.50 Forehead Scan 41592 228 87981 0 55.00 mm[Hg] - Sitting 118.00 mm[Hg] - Sitting 98.40 Tympanic 69.00/ min 95752 229 52822 8 78.00 mm[Hg] - Sitting 152.00 mm[Hg] - Sitting 84540 230 68536 0 62.00 mm[Hg] - Sitting 122.00 mm[Hg] - Sitting 20680 231 10730 7 72.00 mm[Hg] - Lying Down 140.00 mm[Hg] - Lying Down 86673 101 16677 3 97.70 Forehead Scan 76521 101 09543 1 254.10 NI 69.00/ min 21713 101 28210 9 72.00 mm[Hg] - Sitting 142.00 mm[Hg] - Sitting 97.70 Tympanic 18.00/min 17094 101 76642 3 72.00 mm[Hg] - Lying Down 142.00 mm[Hg] - Lying Down 69501 102 67451 8 68.00 mm[Hg] - Lying Down 152.00 mm[Hg] - Lying Down 27667 103 95466 5 74.00 mm[Hg] - Sitting 158.00 mm[Hg] - Sitting 61037 104 98672 9 78.00 mm[Hg] - Sitting 144.00 mm[Hg] - Sitting 93371 105 82430 5 68.00 mm[Hg] - Sitting 138.00 mm[Hg] - Sitting 45447 106 42159 1 70.00 mm[Hg] - Sitting 138.00 mm[Hg] - Sitting 62906 107 33582 1 67.00 mm[Hg] - Sitting 142.00 mm[Hg] - Sitting 69482 108 59906 0 74.00 mm[Hg] - Sitting 143.00 mm[Hg] [...]
--- OUTSIDE RECORDS SUMMARY | 2024-07-26 11:17 | External Medical Summary | Continuity Of Care Document ---
Author Name Unknown Address [address] [place] [address] Organization [facility] () Care Team Providers Care Biological Science Aide Name Role Phone DO Pritchett Amy Primary Care Provider [phone] Allergies Allergy Reaction Start Date End Date Status AMINOGLYCOSIDES Active CIPRO Active GENTAMICIN Active NSAIDS (NON-STEROIDAL ANTI-INFLAMMATORY DRUG) 0 Active IBUPROFEN Active QUINOLONES Active VALIUM Active Medications Medication Instructions Dosage Start Date End Date Status Order Date Drug Code Frequency Route of Admin Diagnosis Code Substitutions Allowed Spikevax [id number](1 2y up)(PF) 50 mcg/0.5 mL intramuscul ar suspension [COVID [id number](12 up)(andu)(P F)] 0.5mL Intramuscular 1 time Monitory 15 Minutes post injection for adverse effects; record site/temp For COVID 19 PREVENTION 0.5mL 01/02 Inactiv e 2023 50969 17721 4 1 time Intram uscula r False [facility] - Nurse initials indicate verificatio n that [id number] vaccine was administere d by [facility] jon 1 Intramuscular 1 time ( Indicate vaccine type) For vaccine 1 05/03 Inactiv e 2023 1 time Intram uscula r False Lisinopril 40 mg tablet [generic] TAKE ONE (1) TABLET BY MOUTH IN THE MORNING. For DX- HTN 1 2023 Active 2023 15016 52917 1 Once daily By Mouth False Tizanidine 2 mg tablet [generic] TAKE ONE (1) TABLET BY MOUTH ONCE DAILY For MUSCLE SPASM 1 2023 Active 2023 23762 07265 0 Once daily By Mouth M62.838 False Tamsulosin 0.4 mg capsule [generic] TAKE (1) CAPSULE BY MOUTH AT BEDTIME For SPASMS 1 2023 Active 2023 78113 99833 0 Once daily By Mouth False Aspirin 81 mg tablet Once daily 1 TABLET BY MOUTH IN THE MORNING For DX- CAD DO NOT CRUSH, CHEW OR BREAK 81 mg 06/12 Inactiv e 2023 Once daily By Mouth False Baclofen 20 mg tablet [generic] 20 mg By Mouth 4 times a day For DX- MUSCLE SPASMS 20 mg 12/12 Inactiv e 2023 65186 32781 1 4 times a day By Mouth False Calcium citrate 250 mg tablet Once daily 4 TABLET BY MOUTH For DX- SUPPLEMENT 250 mg calci 12/12 Inactiv e 2023 Once daily By Mouth False Co Q-10 100 mg capsule 100 mg By Mouth Once daily For DX- SUPPLEMENT 100 mg 06/20 Inactiv e 2023 93348 63319 5 Once daily By Mouth False Furosemide 20 mg tablet [generic] 20 mg By Mouth Once daily For DX-CHF 20 mg 12/12 Inactiv e 2023 59398 16832 0 Once daily By Mouth False Gabapentin 300 mg capsule [generic] 300 mg By Mouth 3 times a day For DX- NEUROPATHY 300 mg 12/12 Inactiv e 2023 71465 35967 4 3 times a day By Mouth False Loratadine 10 mg tablet [generic] 10 mg By Mouth Once daily For DX- ALLERGIES 10 mg 2023 Active 2023 78220 22431 1 Once daily By Mouth False Miralax 17 gram/dose oral powder 17 gram/dose By Mouth IN THE MORNING Mix 1 TABLESPOON IN 8 OZ OF FLUID HOLD FOR LOOSE STOOLS For DX- CONSTIPATION 17 gram/do se 12/12 Inactiv e 2023 04666 15723 0 Once daily By Mouth False Paroxetine 30 mg tablet [generic] 30 mg By Mouth Once daily For DX- DEPRESSION 30 mg 2023 00/00 /0000 Active 2023 91560 58320 3 Once daily By Mouth False Potassium citrate ER 15 mEq (1,620 mg) tablet,exte nded release [generic] 15 mEq By Mouth 3 times a day For DX- SUPPLEMENT/DI URETIC USE/ HYPOCITRAUIRA DO NOT CRUSH 15 mEq 12/12 Inactiv e 2023 94286 69010 1 3 times a day By Mouth [...] For DX- DANDRUFF 12/12 Inactiv e 2023 04608 55004 4 3 times a week Topica l False Acetaminoph en 325 mg tablet [generic] TAKE 2 TABS (650MG) BY MOUTH EVERY 4 HOURS NEEDED FOR TEMP >100 NOT TO EXCEED 3GM/24HRS TAKE 2 TABS (650MG) BY MOUTH EVERY 4 HOURS NEEDED FOR TEMP >100 NOT TO EXCEED 3GM/24HRS For DX-FEVER 2 12/12 Inactiv e 2023 55417 42458 0 By Mouth False MILK OF MAGNESIA ADMINISTER 30 ML BY MOUTH ONCE DAILY NEEDED FOR CONSTIPATION X3 DAYS WITH NO BM. For DX- CONSTIPATION 30ML 12/12 Inactiv e 2023 84631 67477 9 By Mouth False Enema Disposable 19 gram-7 gram/118 mL ADMINISTER ONE ENEMA RECTALLY ONCE DAILY NEEDED FOR CONSTIPATION ON DAY 6 OF NO BM For DX- CONSTIPATION 12/12 Inactiv e 2023 63089 99533 1 Rectal False TUMS EXTRA STR 750MG TAKE (1) TABLET BY MOUTH THREE TIMES DAILY NEEDED FOR INDIGESTION For DX- INDIGESTION 1 12/12 Inactiv e 2023 17952 62732 8 By Mouth False Vitamin D3 25 [...] CONSTIPATION 10 mg 12/12 Inactiv e 2023 56585 35804 1 Rectal False Melatonin 3 mg tablet [generic] 3 mg By Mouth As Needed For DX-INSOMMIA 3 mg 12/12 Inactiv e 2023 43916 16709 8 By Mouth False Hydrocortis one 1 % topical cream [generic] 1 % Topical As Needed For DX- PAIN 1 % 12/12 Inactiv e 2023 98235 53231 1 Topica l False HYDROCORTIS ONE/PARMOXI NE [...] 5-10 50 mg 12/20 Inactiv e 2023 69910 42692 0 Every 4 hours as needed By Mouth False Tylenol 325 mg tablet 325 mg By Mouth Every 4 hours as needed For DX- PAIN PRN FOR MILD PAIN, DO NOT EXCEED 3000MG APAP/24 HOURS 325 mg 12/20 Inactiv e 2023 18398 56319 0 Every 4 hours as needed By Mouth False Baclofen 20 mg tablet [generic] 20 mg By Mouth 4 times a day For MUSCLE SPASMS 20 mg 12/20 Inactiv e 2023 52913 77203 1 4 times a day By Mouth False Calcium citrate 250 mg tablet [generic] Once daily TAKE 4 TABLETS (1000MG) BY MOUTH For SUPPLEMENT 1000 MG 06/26 Inactiv e 2023 23566 56630 6 Once daily By Mouth False Dulcolax (bisacodyl) 10 mg rectal suppository 10 mg Rectal Once daily For CONSTIPATION *MAY HOLD FOR LOOSE STOOLS* 10 mg 2023 Active 2023 61278 33155 1 Once daily Rectal False Gabapentin 300 mg capsule [generic] 300 mg By Mouth 3 times a day For NEUROPATHY 300 mg 2023 Active 2023 33503 74196 4 3 times a day By Mouth False Potassium citrate ER 15 mEq (1,620 mg) tablet,exte nded release [generic] 15 mEq By Mouth 3 times a day For SUPPLEMENT/DI URETIC USE/HYPOCITRA URIA 15 mEq 06/11 Inactiv e 2023 16229 09733 1 3 times a day By Mouth False Potassium chloride ER 20 mEq tablet,exte nded release [generic] 20 mEq By Mouth 3 times a day *DO NOT CRUSH, CHEW OR BREAK* For SUPPLEMENT 20 mEq 12/18 Inactiv e 2023 80821 40018 1 3 times a day By Mouth False Tizanidine 4 mg tablet [generic] 4 mg By Mouth Once daily For MUSCLE SPASMS 4 mg 2023 Active 2023 16159 15960 0 Once daily By Mouth False Tylenol 325 mg tablet 2 tabs By Mouth Every 4 hours as needed For Fever >100 DO NOT EXCEED 3000 MG APAP/24 Hours 2 tabs 12/20 Inactiv e 2023 20982 93480 0 Every 4 hours as needed By Mouth False Dulcolax (bisacodyl) 10 mg rectal suppository Daily as needed For Constipation 1 sup 12/20 Inactiv e 2023 43790 71350 1 Daily as needed Rectal False Fleet Enema 19 gram-7 gram/118 mL 1 Rectal Daily as neededFor Constipation 1 12/20 Inactiv e 2023 15845 17044 6 Daily as needed Rectal False Milk of Magnesia 400 mg/5 mL oral suspension [Magnesium hydroxide] PRN 30ml By Mouth Daily as needed for constipation one time daily if no BM, on day 4 of no BM (PRN refer to instructions) For Constipation For Constipatioin 30ml 12/20 Inactiv e 2023 22892 46430 6 1 time By Mouth False Melatonin 3 mg tablet [generic] 3 mg By Mouth Once daily As Needed For INSOMNIA 3 mg 12/20 Inactiv e 2023 17392 71125 8 Once daily By Mouth False Hydrocortis one 1 % topical cream [generic] 1 % Rectal Four times daily as needed For hemorroid pain 1 % 12/20 Inactiv e 2023 12265 38126 1 Four times daily as needed Rectal False X-STGH ANTACID 750MG CHEW TAKE (1) TABLET BY MOUTH THREE TIMES DAILY NEEDED FOR INDIGESTION 12/20 Inactiv e 2023 88607 63140 4 Three times daily as needed Saline Mist 0.65 % nasal spray aerosol 0.65 % Nares Four times daily as needed For DRYNESS 0.65 % 12/20 Inactiv e 2023 09580 25046 8 Four times daily as needed Nares False Vicks Vaporub 4.7 %-1.2 %-2.6 % topical ointment Apply topically to chest Three times daily as needed For CONGESTION 4.7-1.2 -2.6 12/20 Inactiv e 2023 51507 08012 1 Three times daily as needed Topica l False VITAMIN D3 2000U CAP TAKE ONE (1) CAPSULE BY MOUTH DAILY* DO NOT CRUSH, CHEW OR BREAK* For Supplement 1 capsule 12/19 Inactiv e 2023 54749 73620 0 Once daily By Mouth False Potassium chloride ER 20 mEq tablet,exte nded release(par t/cryst) [generic] TAKE (1) TABLET BY MOUTH THREE TIMES DAILY (MORNING, AFTERNOON, EVENING)*DO NOT CRUSH, CHEW, OR BREAK* For SUPPLEMENT 20 MEQ 06/11 Inactiv e 2023 48805 36563 5 3 times a day By Mouth False Aspirin 81 mg tablet,camron yed release [generic] TAKE ONE (1) TABLET BY MOUTH ONCE DAILY*DO NOT CRUSH, CHEW OR BREAK* For CAD 81 MG 12/22 Inactiv e 2023 43712 13257 0 Once daily By Mouth False Furosemide 20 mg tablet [generic] TAKE 1 AND 1/2 TABLETS (30MG) BY MOUTH ONCE DAILY For CHF 30mg 2023 Active 2023 31002 62503 1 Once daily By Mouth False Polyethylen e glycol 3350 17 gram/dose oral powder [generic] MIX 17 GRAMS (1 CAPFUL) IN 60Z OF LIQUID AND DRINK BY MOUTH ONCE DAILY *HOLD FOR LOOSE STOOLS* For constipation 17 g 2023 Active 2023 12534 27674 3 Once daily By Mouth False Vitamin D3 50 mcg (2,000 unit) capsule Once daily TAKE ONE (1) CAPSULE BY MOUTH DAILY* DO NOT CRUSH, CHEW OR BREAK* For Supplement 1 capsule 02/07 Inactiv e 2023 51653 25045 2 Once daily By Mouth False Fleet Enema 19 gram-7 gram/118 mL 1 Rectal Daily as neededFor Constipation 1 2023 0000 Active 2023 54422 23827 6 Daily as needed Rectal False Tums E-X 300 mg (as calcium carbonate 750 mg) chewable tablet 1 tab By Mouth TAKE (1) TABLET BY MOUTH THREE TIMES DAILY NEEDED FOR INDIGESTION 1 tab 202300 /0000 Active 2023 98240 85921 1 Three times daily as needed By Mouth False Tylenol 325 mg tablet 2 tabs By Mouth Every 4 hours as needed For Fever >100 DO NOT EXCEED 3000 MG APAP/24 Hours 2 tabs 202300 /0000 Active 2023 27935 79098 0 Every 4 hours as needed By Mouth False Vicks Vaporub 4.7 %-1.2 %-2.6 % topical ointment Apply topically to chest Three times daily as needed For CONGESTION topical 202300 Active 2023 98924 49092 1 Three times daily as needed Topica l False Tylenol 325 mg tablet 2 tabs By Mouth Every 4 hours as needed For DX- PAIN PRN FOR MILD PAIN, DO NOT EXCEED 3000MG APAP/24 HOURS 2 tabs 202300 Active 2023 77856 73735 0 Every 4 hours as needed By Mouth False Tramadol 50 mg tablet [generic] 1 tab By Mouth Every 4 hours as needed For DX- PAIN 5-10 1 tab 03/10 Inactiv e 2023 60382 24194 0 Every 4 hours as needed By Mouth False Saline Mist 0.65 % nasal spray aerosol 2 sprays Nares Four times daily as needed For DRYNESS 2 sprays 202300 / Active 2023 24091 80745 8 Four times daily as needed Nares False Dulcolax (bisacodyl) 10 mg rectal suppository Daily as needed For Constipation 1 sup 202300 / Active 2023 70269 52201 1 Daily as needed Rectal False Hydrocortis one-pramoxi ne 1 %-1 % rectal cream [generic] 1 mague Rectal Four times daily as needed For hemorroid pain 1 mague 202300 /0000 Active 2023 79540 38642 4 Four times daily as needed Rectal False Melatonin 3 mg tablet [generic] 1 tab By Mouth At bedtime as needed For INSOMNIA 1 tab 12/24 Inactiv e 2023 97553 65325 8 At bedtime as needed By Mouth False Milk of Magnesia 400 mg/5 mL oral suspension 30ml By Mouth Daily as needed Daily as needed for constipation one time daily if no BM, on day 4 of no BM (PRN refer to instructions) For Constipation For Constipatioin 30ml 2023 Active 2023 77034 89712 2 Daily as needed By Mouth False Baclofen 20 mg tablet [generic] 20 mg By Mouth 4 times a day For MUSCLE SPASMS 20 mg 2023 Active 2023 51604 00408 1 4 times a day By Mouth False Melatonin 3 mg tablet [generic] 1 tab By Mouth At bedtime as needed For INSOMNIA 1 tab 2023 Active 2023 70161 58433 8 At bedtime as needed By Mouth False Bactrim DS 800 mg-160 mg tablet 1 tab By Mouth Twice daily For URINARY TRACT INFECTION, SITE NOT SPECIFIED 1 tab 01/06 Inactiv e 2023 31362 93105 1 Twice daily By Mouth N39.0 False Cefdinir 300 mg capsule [generic] 300 mg By Mouth Twice daily For UTI 300 mg 01/07 Inactiv e 2023 92150 23091 0 Twice daily By Mouth False Cefdinir 300 mg capsule [generic] 300 mg By Mouth Twice daily For UTI 300 mg 01/17 Inactiv e 2023 30874 56329 0 Twice daily By Mouth False Zyrtec 10 mg tablet 10 mg By Mouth Once daily For sinus congestion 10 mg 01/22 Inactiv e 2023 35117 33855 0 Once daily By Mouth False Tobramycin 0.3 %-dexametha sone 0.1 % eye drops,suspe nsion [generic] 0.3-0.1 % Left Eye 4 times a day For eye infection 0.3-0.1 % 02/05 Inactiv e 2023 49582 64079 5 4 times a day Left Eye False Fluconazole 150 mg tablet [generic] 150 mg By Mouth 1 time For yeast infection 150 mg 02/15 Inactiv e 2023 79536 04377 2 1 time By Mouth False Tramadol 50 mg tablet [generic] 1 tab By Mouth Every 4 hours as needed For DX- PAIN 5-10 1 tab 2023 00/00 /0000 Active 2023 16285 50555 0 Every 4 hours as needed By Mouth False Tobramycin 0.3 %-dexametha sone 0.1 % eye drops,suspe nsion [generic] 1 drop Left Eye 4 times a day For Inflammation of left eye 1 drop 05/08 Inactiv e 2023 62067 10318 5 4 times a day Left Eye False Voltaren Arthritis Pain 1 % topical gel 2 gm Topical Twice daily to rigth shoulder for 2 weeks For pain 2 gm 05/08 Inactiv e 2023 74591 46256 1 Twice daily Topica l False Chlorthalid one 25 mg tablet [generic] 12.5mg By Mouth Once daily For HTN 12.5mg 05/06 Inactiv e 2023 69621 11314 0 Once daily By Mouth False Chlorthalid one 25 mg tablet [generic] 12.5mg By Mouth Once daily For HTN 12.5mg 05/07 Inactiv e 2023 75682 84513 0 Once daily By Mouth False Chlorthalid one 25 mg tablet [generic] 05/07 Inactiv e 2023 55715 81621 0 Chlorthalid one 25 mg tablet [generic] 12.5mg By Mouth Once daily For HTN 12.5mg 06/26 Inactiv e 2023 47120 06263 0 Once daily By Mouth False Norvasc 5 mg tablet 5mg By Mouth Once daily, hold medication if systolic is less than 90 For HYPERTENSIVE HEART DISEASE WITHOUT HEART FAILURE 5mg 06/03 Inactiv e 2023 65592 81339 1 Once daily By Mouth I11.9 False Norvasc 5 mg tablet 5mg By Mouth Once daily, hold medication if systolic is less than 90 For HYPERTENSIVE HEART DISEASE WITHOUT HEART FAILURE 5mg 06/03 Inactiv e 2023 07589 77010 1 Once daily By Mouth I11.9 False Norvasc 5 mg tablet 5mg By Mouth Once daily, hold medication if systolic is less than 90 For HYPERTENSIVE HEART DISEASE WITHOUT HEART FAILURE 5mg 06/26 Inactiv e 2023 87363 87830 1 Once daily By Mouth I11.9 False [...] 10 mg 2023 00/00 /0000 Active 2023 40132 85716 1 Once daily By Mouth False DISCONTINUE [...] CAD 81 mg 06/14 Inactiv e 2023 57582 84778 9 Once daily By Mouth False Aspirin 81 mg tablet,camron yed release [generic] 06/14 Inactiv e 2023 51584 14120 9 Aspirin 81 mg tablet,camron yed release [generic] 81 mg By Mouth Once daily Do not crush, chew, or break For CAD 81 mg 06/154 Inactiv e 2023 47066 18639 9 Once daily By Mouth False Cefpodoxime 200 mg tablet [generic] 200mg By Mouth Twice daily For UTI 200mg 07/04 Inactiv e 2023 51439 78212 0 Twice daily By Mouth False Calcium citrate 250 mg tablet [generic] 06/26 Inactiv e 2023 32508 20432 6 Calcium citrate 250 mg tablet [generic] Once daily TAKE 4 TABLETS (1000MG) BY MOUTH For SUPPLEMENT 500 MG 2023 Active 2023 92059 88836 6 Once daily By Mouth False Norvasc 5 mg tablet 7.5 mg By Mouth Once daily Hold medication if SBP <90 For HYPERTENSIVE HEART DISEASE WITHOUT HEART FAILURE 7.5 mg 06/30 Inactiv e 2023 99823 79944 1 Once daily By Mouth I11.9 False Norvasc 5 mg tablet 7.5 mg By Mouth Once daily Hold medication if SBP <90 For HYPERTENSIVE HEART DISEASE WITHOUT HEART FAILURE 7.5 mg 07/06 Inactiv e 2023 28037 33654 1 Once daily By Mouth I11.9 False Simethicone 125 mg capsule [generic] 2 capule By Mouth Twice daily as needed For bloating/gas pain 2 capule 2023 Active 2023 87483 17334 0 Twice daily as needed By Mouth False Cepacol Sore Throat (benzocaine -menthol) 15 mg-2.6 mg lozenges 2 lozenges By Mouth Every 6 hours as needed For sore throat 2 lozenge s 2023 Active 2023 54232 01743 6 Every 6 hours as needed By Mouth False Cefepime 1 gram solution for injection [generic] 1g Intramuscular Every 12 hours 1g intramuscular ly ever 12 hours For UTI 1g 07/06 Inactiv e 2023 01651 54908 4 Every 12 hours Intram uscula r False Cefepime 1 gram solution for injection [generic] 07/06 Inactiv e 2023 95245 99702 4 Cefepime 1 gram solution for injection [generic] 1g Intramuscular Every 12 hours 1g intramuscular ly ever 12 hours For UTI Reconstitute with 2.4 ML of NSS. 1g 07/08 Inactiv e 2023 69717 61558 4 Every 12 hours Intram uscula r False Norvasc 5 mg tablet 07/06 Inactiv e 2023 50438 25821 1 I11.9 Norvasc 5 mg tablet 7.5 mg By Mouth Once daily Hold medication if SBP <90 For HYPERTENSIVE HEART DISEASE WITHOUT HEART FAILURE 7.5 mg 07/18 Inactiv e 2023 38645 71110 1 Once daily By Mouth I11.9 False Cefepime 1 gram solution for injection [generic] 07/08 Inactiv e 2023 53853 14307 4 Cefepime 1 gram solution for injection [generic] 1g Intramuscular Every 12 hours 1g intramuscular ly ever 12 hours For UTI Reconstitute with 2.4 ML of NSS. 1g 07/08 Inactiv e 2023 48277 50766 4 Every 12 hours Intram uscula r False Cefepime 1 gram solution for injection [generic] 07/08 Inactiv e 2023 35436 81050 4 Cefepime 1 gram solution for injection [generic] 1g Intramuscular Every 12 hours 1g intramuscular ly ever 12 hours For UTI Reconstitute with 2.4 ML of NSS. 1g 07/11 Inactiv e 2023 54062 46223 4 Every 12 hours Intram uscula r False Fleet Enema 19 gram-7 gram/118 mL 1 Rectal 1 time For constipation 1 07/16 Inactiv e 2024 02141 95689 6 1 time Rectal False Fleet Enema 19 gram-7 gram/118 mL 1 Rectal 1 time For constipation 1 07/17 Inactiv e 2024 30371 25081 6 1 time Rectal False Norvasc 5 mg tablet 7.5 mg By Mouth Once daily For HYPERTENSIVE HEART DISEASE WITHOUT HEART FAILURE 7.5 mg 2024 00/00 /0000 Active 2024 66565 61455 1 Once daily By Mouth I11.9 False Potassium chloride ER 20 mEq tablet,exte nded release(par t/cryst) [generic] 40 mEq By Mouth 1 time For low potassium prior to surgery 40 mEq 07/18 Inactiv e 2024 79071 71762 1 1 time By Mouth False Potassium chloride ER 20 mEq tablet,exte nded release(par t/cryst) [generic] 40 mEq By Mouth 1 time For low potassium prior to surgery 40 mEq 07/18 Inactiv e 2024 04742 95669 1 1 time By Mouth False Potassium chloride ER 20 mEq tablet,exte nded release(par t/cryst) [generic] 40 mEq By Mouth 1 time For low potassium 40 mEq 07/18 Inactiv e 2024 48586 55464 1 1 time By Mouth False Potassium chloride ER 20 mEq tablet,exte nded release(par t/cryst) [generic] 40 mEq By Mouth 1 time For low potassium 40 mEq 07/18 Inactiv e 2024 74805 63535 1 1 time By Mouth False Potassium chloride ER 20 mEq tablet,exte nded release [generic] 2 By Mouth 1 time For low potassium 2 07/19 Inactiv e 2024 20882 57171 1 1 time By Mouth False Potassium chloride ER 20 mEq tablet,exte nded release [generic] 2 capsules capsules By Mouth 1 time Please send capsule (2 capsules) For low potassium 2 capsule s 07/20 Active 2024 50257 38554 1 1 time By Mouth False Nystatin 100,000 unit/gram topical cream [generic] 100,000 unit Topical As Needed For DX- EXCORIATION 100,000 unit 12/12 Inactiv e 2023 17641 09920 5 Topica l False Vicks Vaporub 4.7 %-1.2 %-2.6 % topical ointment 4.7-1.2-2.6 Topical 3 times a day As Needed For DX- CONGESTION 4.7-1.2 -2.6 12/12 Inactiv e 2023 40078 43080 1 3 times a day Topica l False Ketoconazol e 2 % shampoo [generic] APPLY SHAMPOO TOPICALLY TO SCALP DURING HAIR WASHINGDX: ELVIA DERM OF SCALP For DX- ELVIA DERM OF SCALP 12/12 Inactiv e 2023 72770 36607 4 Topica l False THERA SILICONE SKIN GUARD Topical Twice daily 1 APPLICATION TOPICALLY IN THE MORNING AND AT BEDTIME TO SCROTUM For DX- PREVENTION 2023 0000 0000 Active 2023 Twice daily Topica l False Selenium sulfide 2.5 % lotion [generic] 2.5 % Topical EVERY MONDAY, MONDAY AND MONDAY AFTER SHOWER For DANDRUFF 2.5 % 202300 /0000 Active 2023 38950 53478 4 3 times a week Topica l False Nystatin (bulk) 100 million unit powder [generic] 100 million Topical Twice daily as needed For EXOCORATION 100 million 12/20 Inactiv e 2023 10231 41802 1 Twice daily as needed Topica l False Ketoconazol e 2 % shampoo [generic] Once daily APPLY SHAMPOO TOPICALLY TO SCALP DURING HAIR WASHING ON SHOWER DAYS- , , MON For ELVIA DERM OF SCAP 2 % 2023 0000 /0000 Active 2023 92611 71065 4 Once daily Topica l False Nystatin 100,000 unit/gram topical cream [generic] 1 mague Topical Twice daily as needed For EXOCORATION 1 mague 06/05 Inactiv e 2023 38917 60252 5 Twice daily as needed Topica l False Nystatin 100,000 unit/gram topical powder [generic] 100,000 unit Topical Twice daily to scrotum with AM and PM care For Scrotal excoriation 100,000 unit 06/05 Inactiv e 2023 24234 57290 5 Twice daily Topica l False Problems [...] adjustment of urinary device 07/21/2023 Active Z79.01 roasterman (current) use of anticoagulants 07/21 Active N31.9 [...] weight Temperature SpO2 Blood Sugar Pulse Respirations 68337 211 78070 5 78.00 mm[Hg] - Sitting 125.00 mm[Hg] - Sitting 81213 216 25068 1 254.10 NI 75536 216 63812 2 79.00 mm[Hg] - Sitting 157.00 mm[Hg] - Sitting 73 NI 254.10 NI 36.30 Tympanic 95.00 % 72.00/ min 16.00/min 23692 216 74039 4 98.80 Tympanic 75288 216 23470 2 78.00 mm[Hg] - Sitting 164.00 mm[Hg] - Sitting 47495 217 17993 3 98.20 Tympanic 31270 217 51613 5 73.00 mm[Hg] - Sitting 159.00 mm[Hg] - Sitting 46353 217 49381 9 98.40 Forehead Scan 87239 218 58202 3 97.90 Tympanic 40365 218 67249 5 77.00 mm[Hg] - Sitting 137.00 mm[Hg] - Sitting 92963 219 77616 0 97.70 Tympanic 98976 219 29643 6 97.60 Tympanic 99695 219 44589 4 76.00 mm[Hg] - Sitting 139.00 mm[Hg] - Sitting 63743 219 26394 4 97.80 Forehead Scan 20417 220 39019 9 97.90 Tympanic 86450 220 91460 9 76.00 mm[Hg] - Sitting 138.00 mm[Hg] - Sitting 86714 220 63491 6 98.10 Tympanic 04428 221 78018 5 67.00 mm[Hg] - Sitting 142.00 mm[Hg] - Sitting 42379 221 29390 8 98.20 Tympanic 37055 221 13223 0 98.30 Tympanic 71530 222 22196 7 98.20 Tympanic 36515 222 69112 8 97.90 Tympanic 39575 223 99485 3 98.20 Tympanic 56038 223 59552 3 98.00 Tympanic 36932 224 87402 0 59.00 mm[Hg] - Sitting 111.00 mm[Hg] - Sitting 98.40 Forehead Scan 95.00 % 56.00/ min 18.00/min 40774 224 52016 9 98.20 Forehead Scan 04186 224 87340 3 97.90 Tympanic 86432 225 57532 4 98.20 Tympanic 28866 225 09492 8 97.50 Forehead Scan 20069 228 45897 0 55.00 mm[Hg] - Sitting 118.00 mm[Hg] - Sitting 98.40 Tympanic 69.00/ min 78233 229 07079 8 78.00 mm[Hg] - Sitting 152.00 mm[Hg] - Sitting 02217 230 03131 0 62.00 mm[Hg] - Sitting 122.00 mm[Hg] - Sitting 49065 231 77538 7 72.00 mm[Hg] - Lying Down 140.00 mm[Hg] - Lying Down 91072 101 06815 3 97.70 Forehead Scan 21440 101 30544 1 254.10 NI 69.00/ min 09748 101 49968 9 72.00 mm[Hg] - Sitting 142.00 mm[Hg] - Sitting 97.70 Tympanic 18.00/min 66673 101 31705 3 72.00 mm[Hg] - Lying Down 142.00 mm[Hg] - Lying Down 49919 102 63024 8 68.00 mm[Hg] - Lying Down 152.00 mm[Hg] - Lying Down 57880 103 16345 5 74.00 mm[Hg] - Sitting 158.00 mm[Hg] - Sitting 81832 104 79790 9 78.00 mm[Hg] - Sitting 144.00 mm[Hg] - Sitting 86883 105 33999 5 68.00 mm[Hg] - Sitting 138.00 mm[Hg] - Sitting 01030 106 69366 1 70.00 mm[Hg] - Sitting 138.00 mm[Hg] - Sitting 57866 107 59240 1 67.00 mm[Hg] - Sitting 142.00 mm[Hg] - Sitting 22451 108 74428 0 74.00 mm[Hg] - Sitting 143.00 mm[Hg] [...]
--- OUTSIDE RECORDS SUMMARY | 2024-07-26 11:17 | External Medical Summary | Continuity Of Care Document ---
Author Name Unknown Address [address] [place] [address] Organization [facility] () Care Team Providers Care Back Stayer Name Role Phone DO Pritchett Amy Primary Care Provider [phone] Allergies Allergy Reaction Start Date End Date Status AMINOGLYCOSIDES Active CIPRO Active GENTAMICIN Active NSAIDS (NON-STEROIDAL ANTI-INFLAMMATORY DRUG) 0 Active IBUPROFEN Active QUINOLONES Active VALIUM Active Medications Medication Instructions Dosage Start Date End Date Status Order Date Drug Code Frequency Route of Admin Diagnosis Code Substitutions Allowed Spikevax [id number](1 2y up)(PF) 50 mcg/0.5 mL intramuscul ar suspension [COVID cnd39-51(12 up)(andu)(P F)] 0.5mL Intramuscular 1 time Monitory 15 Minutes post injection for adverse effects; record site/temp For COVID 19 PREVENTION 0.5mL 01/02 Inactiv e 2023 77775 62092 4 1 time Intram uscula r False [facility] - Nurse initials indicate verificatio n that [id number] vaccine was administere d by [facility] 1 Intramuscular 1 time ( Indicate vaccine type) For vaccine 1 05/03 Inactiv e 2023 1 time Intram uscula r False Lisinopril 40 mg tablet [generic] TAKE ONE (1) TABLET BY MOUTH IN THE MORNING. For DX- HTN 1 2023 Active 2023 06661 51234 1 Once daily By Mouth False Tizanidine 2 mg tablet [generic] TAKE ONE (1) TABLET BY MOUTH ONCE DAILY For MUSCLE SPASM 1 2023 Active 2023 19370 70387 0 Once daily By Mouth M62.838 False Tamsulosin 0.4 mg capsule [generic] TAKE (1) CAPSULE BY MOUTH AT BEDTIME For SPASMS 1 2023 Active 2023 84836 93421 0 Once daily By Mouth False Aspirin 81 mg tablet Once daily 1 TABLET BY MOUTH IN THE MORNING For DX- CAD DO NOT CRUSH, CHEW OR BREAK 81 mg 06/12 Inactiv e 2023 Once daily By Mouth False Baclofen 20 mg tablet [generic] 20 mg By Mouth 4 times a day For DX- MUSCLE SPASMS 20 mg 12/12 Inactiv e 2023 13398 58156 1 4 times a day By Mouth False Calcium citrate 250 mg tablet Once daily 4 TABLET BY MOUTH For DX- SUPPLEMENT 250 mg calci 12/12 Inactiv e 2023 Once daily By Mouth False Co Q-10 100 mg capsule 100 mg By Mouth Once daily For DX- SUPPLEMENT 100 mg 06/20 Inactiv e 2023 12352 17095 5 Once daily By Mouth False Furosemide 20 mg tablet [generic] 20 mg By Mouth Once daily For DX-CHF 20 mg 12/12 Inactiv e 2023 25035 84177 0 Once daily By Mouth False Gabapentin 300 mg capsule [generic] 300 mg By Mouth 3 times a day For DX- NEUROPATHY 300 mg 12/12 Inactiv e 2023 64889 01555 4 3 times a day By Mouth False Loratadine 10 mg tablet [generic] 10 mg By Mouth Once daily For DX- ALLERGIES 10 mg 2023 Active 2023 45323 54582 1 Once daily By Mouth False Miralax 17 gram/dose oral powder 17 gram/dose By Mouth IN THE MORNING Mix 1 TABLESPOON IN 8 OZ OF FLUID HOLD FOR LOOSE STOOLS For DX- CONSTIPATION 17 gram/do se 12/12 Inactiv e 2023 61472 82950 0 Once daily By Mouth False Paroxetine 30 mg tablet [generic] 30 mg By Mouth Once daily For DX- DEPRESSION 30 mg 2023 00/00 /0000 Active 2023 26035 96818 3 Once daily By Mouth False Potassium citrate ER 15 mEq (1,620 mg) tablet,exte nded release [generic] 15 mEq By Mouth 3 times a day For DX- SUPPLEMENT/DI URETIC USE/ HYPOCITRAUIRA DO NOT CRUSH 15 mEq 12/12 Inactiv e 2023 43678 13554 1 3 times a day By Mouth [...] For DX- DANDRUFF 12/12 Inactiv e 2023 79103 42793 4 3 times a week Topica l False Acetaminoph en 325 mg tablet [generic] TAKE 2 TABS (650MG) BY MOUTH EVERY 4 HOURS NEEDED FOR TEMP >100 NOT TO EXCEED 3GM/24HRS TAKE 2 TABS (650MG) BY MOUTH EVERY 4 HOURS NEEDED FOR TEMP >100 NOT TO EXCEED 3GM/24HRS For DX-FEVER 2 12/12 Inactiv e 2023 85398 67998 0 By Mouth False MILK OF MAGNESIA ADMINISTER 30 ML BY MOUTH ONCE DAILY NEEDED FOR CONSTIPATION X3 DAYS WITH NO BM. For DX- CONSTIPATION 30ML 12/12 Inactiv e 2023 89059 71866 9 By Mouth False Enema Disposable 19 gram-7 gram/118 mL ADMINISTER ONE ENEMA RECTALLY ONCE DAILY NEEDED FOR CONSTIPATION ON DAY 6 OF NO BM For DX- CONSTIPATION 12/12 Inactiv e 2023 71068 92899 1 Rectal False TUMS EXTRA STR 750MG TAKE (1) TABLET BY MOUTH THREE TIMES DAILY NEEDED FOR INDIGESTION For DX- INDIGESTION 1 12/12 Inactiv e 2023 24749 07784 8 By Mouth False Vitamin D3 25 [...] CONSTIPATION 10 mg 12/12 Inactiv e 2023 31595 81675 1 Rectal False Melatonin 3 mg tablet [generic] 3 mg By Mouth As Needed For DX-INSOMMIA 3 mg 12/12 Inactiv e 2023 25946 81593 8 By Mouth False Hydrocortis one 1 % topical cream [generic] 1 % Topical As Needed For DX- PAIN 1 % 12/12 Inactiv e 2023 39397 82250 1 Topica l False HYDROCORTIS ONE/PARMOXI NE [...] 5-10 50 mg 12/20 Inactiv e 2023 03683 35693 0 Every 4 hours as needed By Mouth False Tylenol 325 mg tablet 325 mg By Mouth Every 4 hours as needed For DX- PAIN PRN FOR MILD PAIN, DO NOT EXCEED 3000MG APAP/24 HOURS 325 mg 12/20 Inactiv e 2023 75759 45812 0 Every 4 hours as needed By Mouth False Baclofen 20 mg tablet [generic] 20 mg By Mouth 4 times a day For MUSCLE SPASMS 20 mg 12/20 Inactiv e 2023 35307 99722 1 4 times a day By Mouth False Calcium citrate 250 mg tablet [generic] Once daily TAKE 4 TABLETS (1000MG) BY MOUTH For SUPPLEMENT 1000 MG 06/26 Inactiv e 2023 58909 87900 6 Once daily By Mouth False Dulcolax (bisacodyl) 10 mg rectal suppository 10 mg Rectal Once daily For CONSTIPATION *MAY HOLD FOR LOOSE STOOLS* 10 mg 2023 Active 2023 72711 22989 1 Once daily Rectal False Gabapentin 300 mg capsule [generic] 300 mg By Mouth 3 times a day For NEUROPATHY 300 mg 2023 Active 2023 97668 57285 4 3 times a day By Mouth False Potassium citrate ER 15 mEq (1,620 mg) tablet,exte nded release [generic] 15 mEq By Mouth 3 times a day For SUPPLEMENT/DI URETIC USE/HYPOCITRA URIA 15 mEq 06/11 Inactiv e 2023 47060 97194 1 3 times a day By Mouth False Potassium chloride ER 20 mEq tablet,exte nded release [generic] 20 mEq By Mouth 3 times a day *DO NOT CRUSH, CHEW OR BREAK* For SUPPLEMENT 20 mEq 12/18 Inactiv e 2023 17131 42521 1 3 times a day By Mouth False Tizanidine 4 mg tablet [generic] 4 mg By Mouth Once daily For MUSCLE SPASMS 4 mg 2023 Active 2023 39992 30309 0 Once daily By Mouth False Tylenol 325 mg tablet 2 tabs By Mouth Every 4 hours as needed For Fever >100 DO NOT EXCEED 3000 MG APAP/24 Hours 2 tabs 12/20 Inactiv e 2023 89297 07914 0 Every 4 hours as needed By Mouth False Dulcolax (bisacodyl) 10 mg rectal suppository Daily as needed For Constipation 1 sup 12/20 Inactiv e 2023 01923 81718 1 Daily as needed Rectal False Fleet Enema 19 gram-7 gram/118 mL 1 Rectal Daily as neededFor Constipation 1 12/20 Inactiv e 2023 60145 19260 6 Daily as needed Rectal False Milk of Magnesia 400 mg/5 mL oral suspension [Magnesium hydroxide] PRN 30ml By Mouth Daily as needed for constipation one time daily if no BM, on day 4 of no BM (PRN refer to instructions) For Constipation For Constipatioin 30ml 12/20 Inactiv e 2023 24833 92290 6 1 time By Mouth False Melatonin 3 mg tablet [generic] 3 mg By Mouth Once daily As Needed For INSOMNIA 3 mg 12/20 Inactiv e 2023 86704 60077 8 Once daily By Mouth False Hydrocortis one 1 % topical cream [generic] 1 % Rectal Four times daily as needed For hemorroid pain 1 % 12/20 Inactiv e 2023 70808 87278 1 Four times daily as needed Rectal False X-STGH ANTACID 750MG CHEW TAKE (1) TABLET BY MOUTH THREE TIMES DAILY NEEDED FOR INDIGESTION 12/20 Inactiv e 2023 00324 39210 4 Three times daily as needed Saline Mist 0.65 % nasal spray aerosol 0.65 % Nares Four times daily as needed For DRYNESS 0.65 % 12/20 Inactiv e 2023 85796 81684 8 Four times daily as needed Nares False Vicks Vaporub 4.7 %-1.2 %-2.6 % topical ointment Apply topically to chest Three times daily as needed For CONGESTION 4.7-1.2 -2.6 12/20 Inactiv e 2023 47031 67732 1 Three times daily as needed Topica l False VITAMIN D3 2000U CAP TAKE ONE (1) CAPSULE BY MOUTH DAILY* DO NOT CRUSH, CHEW OR BREAK* For Supplement 1 capsule 12/19 Inactiv e 2023 91747 36745 0 Once daily By Mouth False Potassium chloride ER 20 mEq tablet,exte nded release(par t/cryst) [generic] TAKE (1) TABLET BY MOUTH THREE TIMES DAILY (MORNING, AFTERNOON, EVENING)*DO NOT CRUSH, CHEW, OR BREAK* For SUPPLEMENT 20 MEQ 06/11 Inactiv e 2023 78689 24427 5 3 times a day By Mouth False Aspirin 81 mg tablet,camron yed release [generic] TAKE ONE (1) TABLET BY MOUTH ONCE DAILY*DO NOT CRUSH, CHEW OR BREAK* For CAD 81 MG 12/22 Inactiv e 2023 73678 03709 0 Once daily By Mouth False Furosemide 20 mg tablet [generic] TAKE 1 AND 1/2 TABLETS (30MG) BY MOUTH ONCE DAILY For CHF 30mg 2023 Active 2023 26141 29736 1 Once daily By Mouth False Polyethylen e glycol 3350 17 gram/dose oral powder [generic] MIX 17 GRAMS (1 CAPFUL) IN 60Z OF LIQUID AND DRINK BY MOUTH ONCE DAILY *HOLD FOR LOOSE STOOLS* For constipation 17 g 2023 Active 2023 32667 21568 3 Once daily By Mouth False Vitamin D3 50 mcg (2,000 unit) capsule Once daily TAKE ONE (1) CAPSULE BY MOUTH DAILY* DO NOT CRUSH, CHEW OR BREAK* For Supplement 1 capsule 02/07 Inactiv e 2023 07167 88791 2 Once daily By Mouth False Fleet Enema 19 gram-7 gram/118 mL 1 Rectal Daily as neededFor Constipation 1 2023 0000 Active 2023 91211 91275 6 Daily as needed Rectal False Tums E-X 300 mg (as calcium carbonate 750 mg) chewable tablet 1 tab By Mouth TAKE (1) TABLET BY MOUTH THREE TIMES DAILY NEEDED FOR INDIGESTION 1 tab 202300 /0000 Active 2023 52102 00064 1 Three times daily as needed By Mouth False Tylenol 325 mg tablet 2 tabs By Mouth Every 4 hours as needed For Fever >100 DO NOT EXCEED 3000 MG APAP/24 Hours 2 tabs 202300 /0000 Active 2023 33517 78578 0 Every 4 hours as needed By Mouth False Vicks Vaporub 4.7 %-1.2 %-2.6 % topical ointment Apply topically to chest Three times daily as needed For CONGESTION topical 202300 Active 2023 74622 90041 1 Three times daily as needed Topica l False Tylenol 325 mg tablet 2 tabs By Mouth Every 4 hours as needed For DX- PAIN PRN FOR MILD PAIN, DO NOT EXCEED 3000MG APAP/24 HOURS 2 tabs 202300 Active 2023 79640 83601 0 Every 4 hours as needed By Mouth False Tramadol 50 mg tablet [generic] 1 tab By Mouth Every 4 hours as needed For DX- PAIN 5-10 1 tab 03/10 Inactiv e 2023 72212 37839 0 Every 4 hours as needed By Mouth False Saline Mist 0.65 % nasal spray aerosol 2 sprays Nares Four times daily as needed For DRYNESS 2 sprays 202300 / Active 2023 27031 58687 8 Four times daily as needed Nares False Dulcolax (bisacodyl) 10 mg rectal suppository Daily as needed For Constipation 1 sup 202300 / Active 2023 35111 36074 1 Daily as needed Rectal False Hydrocortis one-pramoxi ne 1 %-1 % rectal cream [generic] 1 mague Rectal Four times daily as needed For hemorroid pain 1 mague 202300 /0000 Active 2023 86126 90493 4 Four times daily as needed Rectal False Melatonin 3 mg tablet [generic] 1 tab By Mouth At bedtime as needed For INSOMNIA 1 tab 12/24 Inactiv e 2023 43627 60723 8 At bedtime as needed By Mouth False Milk of Magnesia 400 mg/5 mL oral suspension 30ml By Mouth Daily as needed Daily as needed for constipation one time daily if no BM, on day 4 of no BM (PRN refer to instructions) For Constipation For Constipatioin 30ml 2023 Active 2023 19278 29552 2 Daily as needed By Mouth False Baclofen 20 mg tablet [generic] 20 mg By Mouth 4 times a day For MUSCLE SPASMS 20 mg 2023 Active 2023 65480 30389 1 4 times a day By Mouth False Melatonin 3 mg tablet [generic] 1 tab By Mouth At bedtime as needed For INSOMNIA 1 tab 2023 Active 2023 71046 41369 8 At bedtime as needed By Mouth False Bactrim DS 800 mg-160 mg tablet 1 tab By Mouth Twice daily For URINARY TRACT INFECTION, SITE NOT SPECIFIED 1 tab 01/06 Inactiv e 2023 08757 19484 1 Twice daily By Mouth N39.0 False Cefdinir 300 mg capsule [generic] 300 mg By Mouth Twice daily For UTI 300 mg 01/07 Inactiv e 2023 92686 98394 0 Twice daily By Mouth False Cefdinir 300 mg capsule [generic] 300 mg By Mouth Twice daily For UTI 300 mg 01/17 Inactiv e 2023 59325 03699 0 Twice daily By Mouth False Zyrtec 10 mg tablet 10 mg By Mouth Once daily For sinus congestion 10 mg 01/22 Inactiv e 2023 38097 72897 0 Once daily By Mouth False Tobramycin 0.3 %-dexametha sone 0.1 % eye drops,suspe nsion [generic] 0.3-0.1 % Left Eye 4 times a day For eye infection 0.3-0.1 % 02/05 Inactiv e 2023 85619 99542 5 4 times a day Left Eye False Fluconazole 150 mg tablet [generic] 150 mg By Mouth 1 time For yeast infection 150 mg 02/15 Inactiv e 2023 56890 11560 2 1 time By Mouth False Tramadol 50 mg tablet [generic] 1 tab By Mouth Every 4 hours as needed For DX- PAIN 5-10 1 tab 2023 00/00 /0000 Active 2023 33509 62600 0 Every 4 hours as needed By Mouth False Tobramycin 0.3 %-dexametha sone 0.1 % eye drops,suspe nsion [generic] 1 drop Left Eye 4 times a day For Inflammation of left eye 1 drop 05/08 Inactiv e 2023 67464 80424 5 4 times a day Left Eye False Voltaren Arthritis Pain 1 % topical gel 2 gm Topical Twice daily to rigth shoulder for 2 weeks For pain 2 gm 05/08 Inactiv e 2023 75704 80424 1 Twice daily Topica l False Chlorthalid one 25 mg tablet [generic] 12.5mg By Mouth Once daily For HTN 12.5mg 05/06 Inactiv e 2023 11356 66093 0 Once daily By Mouth False Chlorthalid one 25 mg tablet [generic] 12.5mg By Mouth Once daily For HTN 12.5mg 05/07 Inactiv e 2023 97011 52045 0 Once daily By Mouth False Chlorthalid one 25 mg tablet [generic] 05/07 Inactiv e 2023 30909 55969 0 Chlorthalid one 25 mg tablet [generic] 12.5mg By Mouth Once daily For HTN 12.5mg 06/26 Inactiv e 2023 80300 05563 0 Once daily By Mouth False Norvasc 5 mg tablet 5mg By Mouth Once daily, hold medication if systolic is less than 90 For HYPERTENSIVE HEART DISEASE WITHOUT HEART FAILURE 5mg 06/03 Inactiv e 2023 07527 42439 1 Once daily By Mouth I11.9 False Norvasc 5 mg tablet 5mg By Mouth Once daily, hold medication if systolic is less than 90 For HYPERTENSIVE HEART DISEASE WITHOUT HEART FAILURE 5mg 06/03 Inactiv e 2023 48669 74230 1 Once daily By Mouth I11.9 False Norvasc 5 mg tablet 5mg By Mouth Once daily, hold medication if systolic is less than 90 For HYPERTENSIVE HEART DISEASE WITHOUT HEART FAILURE 5mg 06/26 Inactiv e 2023 35978 01750 1 Once daily By Mouth I11.9 False [...] 10 mg 2023 00/00 /0000 Active 2023 39683 64959 1 Once daily By Mouth False DISCONTINUE [...] CAD 81 mg 06/14 Inactiv e 2023 04110 75957 9 Once daily By Mouth False Aspirin 81 mg tablet,camron yed release [generic] 06/14 Inactiv e 2023 23978 18781 9 Aspirin 81 mg tablet,camron yed release [generic] 81 mg By Mouth Once daily Do not crush, chew, or break For CAD 81 mg 06/154 Inactiv e 2023 58920 05844 9 Once daily By Mouth False Cefpodoxime 200 mg tablet [generic] 200mg By Mouth Twice daily For UTI 200mg 07/04 Inactiv e 2023 51755 32459 0 Twice daily By Mouth False Calcium citrate 250 mg tablet [generic] 06/26 Inactiv e 2023 25277 17794 6 Calcium citrate 250 mg tablet [generic] Once daily TAKE 4 TABLETS (1000MG) BY MOUTH For SUPPLEMENT 500 MG 2023 Active 2023 74018 69100 6 Once daily By Mouth False Norvasc 5 mg tablet 7.5 mg By Mouth Once daily Hold medication if SBP <90 For HYPERTENSIVE HEART DISEASE WITHOUT HEART FAILURE 7.5 mg 06/30 Inactiv e 2023 61038 12525 1 Once daily By Mouth I11.9 False Norvasc 5 mg tablet 7.5 mg By Mouth Once daily Hold medication if SBP <90 For HYPERTENSIVE HEART DISEASE WITHOUT HEART FAILURE 7.5 mg 07/06 Inactiv e 2023 83539 12701 1 Once daily By Mouth I11.9 False Simethicone 125 mg capsule [generic] 2 capule By Mouth Twice daily as needed For bloating/gas pain 2 capule 2023 Active 2023 87972 76903 0 Twice daily as needed By Mouth False Cepacol Sore Throat (benzocaine -menthol) 15 mg-2.6 mg lozenges 2 lozenges By Mouth Every 6 hours as needed For sore throat 2 lozenge s 2023 Active 2023 06470 97364 6 Every 6 hours as needed By Mouth False Cefepime 1 gram solution for injection [generic] 1g Intramuscular Every 12 hours 1g intramuscular ly ever 12 hours For UTI 1g 07/06 Inactiv e 2023 19469 05662 4 Every 12 hours Intram uscula r False Cefepime 1 gram solution for injection [generic] 07/06 Inactiv e 2023 86543 34726 4 Cefepime 1 gram solution for injection [generic] 1g Intramuscular Every 12 hours 1g intramuscular ly ever 12 hours For UTI Reconstitute with 2.4 ML of NSS. 1g 07/08 Inactiv e 2023 89917 18305 4 Every 12 hours Intram uscula r False Norvasc 5 mg tablet 07/06 Inactiv e 2023 48403 92735 1 I11.9 Norvasc 5 mg tablet 7.5 mg By Mouth Once daily Hold medication if SBP <90 For HYPERTENSIVE HEART DISEASE WITHOUT HEART FAILURE 7.5 mg 07/18 Inactiv e 2023 15507 56812 1 Once daily By Mouth I11.9 False Cefepime 1 gram solution for injection [generic] 07/08 Inactiv e 2023 91136 02022 4 Cefepime 1 gram solution for injection [generic] 1g Intramuscular Every 12 hours 1g intramuscular ly ever 12 hours For UTI Reconstitute with 2.4 ML of NSS. 1g 07/08 Inactiv e 2023 95738 47473 4 Every 12 hours Intram uscula r False Cefepime 1 gram solution for injection [generic] 07/08 Inactiv e 2023 96365 34137 4 Cefepime 1 gram solution for injection [generic] 1g Intramuscular Every 12 hours 1g intramuscular ly ever 12 hours For UTI Reconstitute with 2.4 ML of NSS. 1g 07/11 Inactiv e 2023 66949 03535 4 Every 12 hours Intram uscula r False Fleet Enema 19 gram-7 gram/118 mL 1 Rectal 1 time For constipation 1 07/16 Inactiv e 2024 66740 29948 6 1 time Rectal False Fleet Enema 19 gram-7 gram/118 mL 1 Rectal 1 time For constipation 1 07/17 Inactiv e 2024 69642 84645 6 1 time Rectal False Norvasc 5 mg tablet 7.5 mg By Mouth Once daily For HYPERTENSIVE HEART DISEASE WITHOUT HEART FAILURE 7.5 mg 2024 Active 2024 03418 36000 1 Once daily By Mouth I11.9 False Potassium chloride ER 20 mEq tablet,exte nded release(par t/cryst) [generic] 40 mEq By Mouth 1 time For low potassium prior to surgery 40 mEq 07/19 Active 2024 73121 05609 1 1 time By Mouth False Nystatin 100,000 unit/gram topical cream [generic] 100,000 unit Topical As Needed For DX- EXCORIATION 100,000 unit 12/12 Inactiv e 2023 31993 05604 5 Topica l False Vicks Vaporub 4.7 %-1.2 %-2.6 % topical ointment 4.7-1.2-2.6 Topical 3 times a day As Needed For DX- CONGESTION 4.7-1.2 -2.6 12/12 Inactiv e 2023 20609 09970 1 3 times a day Topica l False Ketoconazol e 2 % shampoo [generic] APPLY SHAMPOO TOPICALLY TO SCALP DURING HAIR WASHINGDX: ELVIA DERM OF SCALP For DX- ELVIA DERM OF SCALP 12/12 Inactiv e 2023 55441 97681 4 Topica l False THERA SILICONE SKIN GUARD Topical Twice daily 1 APPLICATION TOPICALLY IN THE MORNING AND AT BEDTIME TO SCROTUM For DX- PREVENTION 2023 Active 2023 Twice daily Topica l False Selenium sulfide 2.5 % lotion [generic] 2.5 % Topical EVERY MONDAY, MONDAY AND MONDAY AFTER SHOWER For DANDRUFF 2.5 % 2023 Active 2023 54901 91787 4 3 times a week Topica l False Nystatin (bulk) 100 million unit powder [generic] 100 million Topical Twice daily as needed For EXOCORATION 100 million 12/20 Inactiv e 2023 61055 03751 1 Twice daily as needed Topica l False Ketoconazol e 2 % shampoo [generic] Once daily APPLY SHAMPOO TOPICALLY TO SCALP DURING HAIR WASHING ON SHOWER DAYS- LITTLE SAHA, SAT For ELVIA DERM OF SCAP 2 % 2023 Active 2023 98825 52413 4 Once daily Topica l False Nystatin 100,000 unit/gram topical cream [generic] 1 mague Topical Twice daily as needed For EXOCORATION 1 mague 06/05 Inactiv e 2023 11429 60259 5 Twice daily as needed Topica l False Nystatin 100,000 unit/gram topical powder [generic] 100,000 unit Topical Twice daily to scrotum with AM and PM care For Scrotal excoriation 100,000 unit 06/05 Inactiv e 2023 47240 30251 5 Twice daily Topica l False Problems [...] adjustment of urinary device 07/21/2023 Active Z79.01 retirement (current) use of anticoagulants 07/21 Active N31.9 [...] Temperature SpO2 Blood Sugar Pulse Respirations 210 31804 6 80.00 mm[Hg] - Sitting 132.00 mm[Hg] - Sitting 99764 211 13933 5 78.00 mm[Hg] - Sitting 125.00 mm[Hg] - Sitting 37416 216 90592 1 254.10 NI 42439 216 00253 2 79.00 mm[Hg] - Sitting 157.00 mm[Hg] - Sitting 73 NI 254.10 NI 36.30 Tympanic 95.00 % 72.00/ min 16.00/min 74959 216 97540 4 98.80 Tympanic 77620 216 35953 2 78.00 mm[Hg] - Sitting 164.00 mm[Hg] - Sitting 94634 217 53699 3 98.20 Tympanic 20077 217 50564 5 73.00 mm[Hg] - Sitting 159.00 mm[Hg] - Sitting 00900 217 38134 9 98.40 Forehead Scan 00930 218 45677 3 97.90 Tympanic 52444 218 55385 5 77.00 mm[Hg] - Sitting 137.00 mm[Hg] - Sitting 99320 219 44259 0 97.70 Tympanic 91123 219 39292 6 97.60 Tympanic 20883 219 21350 4 76.00 mm[Hg] - Sitting 139.00 mm[Hg] - Sitting 05886 219 48404 4 97.80 Forehead Scan 32082 220 02019 9 97.90 Tympanic 35505 220 82776 9 76.00 mm[Hg] - Sitting 138.00 mm[Hg] - Sitting 40400 220 09208 6 98.10 Tympanic 62576 221 90629 5 67.00 mm[Hg] - Sitting 142.00 mm[Hg] - Sitting 46527 221 46886 8 98.20 Tympanic 75754 221 90294 0 98.30 Tympanic 26998 222 63928 7 98.20 Tympanic 19988 222 74253 8 97.90 Tympanic 52341 223 69384 3 98.20 Tympanic 51200 223 43242 3 98.00 Tympanic 85595 224 02223 0 59.00 mm[Hg] - Sitting 111.00 mm[Hg] - Sitting 98.40 Forehead Scan 95.00 % 56.00/ min 18.00/min 92286 224 24079 9 98.20 Forehead Scan 28707 224 35065 3 97.90 Tympanic 98120 225 91369 4 98.20 Tympanic 27587 225 94170 8 97.50 Forehead Scan 53746 228 31285 0 55.00 mm[Hg] - Sitting 118.00 mm[Hg] - Sitting 98.40 Tympanic 69.00/ min 27607 229 47969 8 78.00 mm[Hg] - Sitting 152.00 mm[Hg] - Sitting 50556 230 76309 0 62.00 mm[Hg] - Sitting 122.00 mm[Hg] - Sitting 61783 231 05284 7 72.00 mm[Hg] - Lying Down 140.00 mm[Hg] - Lying Down 57776 101 72870 3 97.70 Forehead Scan 49505 101 26481 1 254.10 NI 69.00/ min 88311 101 95810 9 72.00 mm[Hg] - Sitting 142.00 mm[Hg] - Sitting 97.70 Tympanic 18.00/min 61582 101 04480 3 72.00 mm[Hg] - Lying Down 142.00 mm[Hg] - Lying Down 89923 102 98787 8 68.00 mm[Hg] - Lying Down 152.00 mm[Hg] - Lying Down 70133 103 43267 5 74.00 mm[Hg] - Sitting 158.00 mm[Hg] - Sitting 76167 104 27080 9 78.00 mm[Hg] - Sitting 144.00 mm[Hg] - Sitting 92165 105 86295 5 68.00 mm[Hg] - Sitting 138.00 mm[Hg] - Sitting 09860 106 80162 1 70.00 mm[Hg] - Sitting 138.00 mm[Hg] - Sitting 22720 107 84035 1 67.00 mm[Hg] - Sitting 142.00 mm[Hg] - Sitting 12251 108 10311 0 74.00 mm[Hg] - Sitting 143.00 mm[Hg] [...]
--- OUTSIDE RECORDS SUMMARY | 2024-07-26 11:17 | External Medical Summary | Continuity Of Care Document ---
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 Name Role Phone DO Pritchett Amy Primary Care Provider [phone] Allergies Allergy Reaction Start Date End Date Status AMINOGLYCOSIDES Active CIPRO Active GENTAMICIN Active NSAIDS (NON-STEROIDAL ANTI-INFLAMMATORY DRUG) 0 Active IBUPROFEN Active QUINOLONES Active VALIUM Active Medications Medication Instructions Dosage Start Date End Date Status Order Date Drug Code Frequency Route of Admin Diagnosis Code Substitutions Allowed Spikevax [id number](1 2y up)(PF) 50 mcg/0.5 mL intramuscul ar suspension [COVID [id number](12 up)(andu)(P F)] 0.5mL Intramuscular 1 time Monitory 15 Minutes post injection for adverse effects; record site/temp For COVID 19 PREVENTION 0.5mL 01/02 Inactiv e 2023 84519 50593 4 1 time Intram uscula r False [facility] - Nurse initials indicate verificatio n that [id number] vaccine was administere d by [facility] 1 Intramuscular 1 time ( Indicate vaccine type) For vaccine 1 05/03 Inactiv e 2023 1 time Intram uscula r False Lisinopril 40 mg tablet [generic] TAKE ONE (1) TABLET BY MOUTH IN THE MORNING. For DX- HTN 1 2023 Active 2023 88580 17240 1 Once daily By Mouth False Tizanidine 2 mg tablet [generic] TAKE ONE (1) TABLET BY MOUTH ONCE DAILY For MUSCLE SPASM 1 2023 Active 2023 55562 00089 0 Once daily By Mouth M62.838 False Tamsulosin 0.4 mg capsule [generic] TAKE (1) CAPSULE BY MOUTH AT BEDTIME For SPASMS 1 2023 Active 2023 13904 83343 0 Once daily By Mouth False Aspirin 81 mg tablet Once daily 1 TABLET BY MOUTH IN THE MORNING For DX- CAD DO NOT CRUSH, CHEW OR BREAK 81 mg 06/12 Inactiv e 2023 Once daily By Mouth False Baclofen 20 mg tablet [generic] 20 mg By Mouth 4 times a day For DX- MUSCLE SPASMS 20 mg 12/12 Inactiv e 2023 49062 66640 1 4 times a day By Mouth False Calcium citrate 250 mg tablet Once daily 4 TABLET BY MOUTH For DX- SUPPLEMENT 250 mg calci 12/12 Inactiv e 2023 Once daily By Mouth False Co Q-10 100 mg capsule 100 mg By Mouth Once daily For DX- SUPPLEMENT 100 mg 06/20 Inactiv e 2023 05473 64360 5 Once daily By Mouth False Furosemide 20 mg tablet [generic] 20 mg By Mouth Once daily For DX-CHF 20 mg 12/12 Inactiv e 2023 13242 86915 0 Once daily By Mouth False Gabapentin 300 mg capsule [generic] 300 mg By Mouth 3 times a day For DX- NEUROPATHY 300 mg 12/12 Inactiv e 2023 70183 89358 4 3 times a day By Mouth False Loratadine 10 mg tablet [generic] 10 mg By Mouth Once daily For DX- ALLERGIES 10 mg 2023 Active 2023 22555 39404 1 Once daily By Mouth False Miralax 17 gram/dose oral powder 17 gram/dose By Mouth IN THE MORNING Mix 1 TABLESPOON IN 8 OZ OF FLUID HOLD FOR LOOSE STOOLS For DX- CONSTIPATION 17 gram/do se 12/12 Inactiv e 2023 35582 89138 0 Once daily By Mouth False Paroxetine 30 mg tablet [generic] 30 mg By Mouth Once daily For DX- DEPRESSION 30 mg 2023 00/00 /0000 Active 2023 48911 68068 3 Once daily By Mouth False Potassium citrate ER 15 mEq (1,620 mg) tablet,exte nded release [generic] 15 mEq By Mouth 3 times a day For DX- SUPPLEMENT/DI URETIC USE/ HYPOCITRAUIRA DO NOT CRUSH 15 mEq 12/12 Inactiv e 2023 64612 33900 1 3 times a day By Mouth [...] For DX- DANDRUFF 12/12 Inactiv e 2023 98980 51250 4 3 times a week Topica l False Acetaminoph en 325 mg tablet [generic] TAKE 2 TABS (650MG) BY MOUTH EVERY 4 HOURS NEEDED FOR TEMP >100 NOT TO EXCEED 3GM/24HRS TAKE 2 TABS (650MG) BY MOUTH EVERY 4 HOURS NEEDED FOR TEMP >100 NOT TO EXCEED 3GM/24HRS For DX-FEVER 2 12/12 Inactiv e 2023 83248 46584 0 By Mouth False MILK OF MAGNESIA ADMINISTER 30 ML BY MOUTH ONCE DAILY NEEDED FOR CONSTIPATION X3 DAYS WITH NO BM. For DX- CONSTIPATION 30ML 12/12 Inactiv e 2023 40009 48997 9 By Mouth False Enema Disposable 19 gram-7 gram/118 mL ADMINISTER ONE ENEMA RECTALLY ONCE DAILY NEEDED FOR CONSTIPATION ON DAY 6 OF NO BM For DX- CONSTIPATION 12/12 Inactiv e 2023 94921 38406 1 Rectal False TUMS EXTRA STR 750MG TAKE (1) TABLET BY MOUTH THREE TIMES DAILY NEEDED FOR INDIGESTION For DX- INDIGESTION 1 12/12 Inactiv e 2023 79030 66022 8 By Mouth False Vitamin D3 25 [...] CONSTIPATION 10 mg 12/12 Inactiv e 2023 06859 15640 1 Rectal False Melatonin 3 mg tablet [generic] 3 mg By Mouth As Needed For DX-INSOMMIA 3 mg 12/12 Inactiv e 2023 71692 63660 8 By Mouth False Hydrocortis one 1 % topical cream [generic] 1 % Topical As Needed For DX- PAIN 1 % 12/12 Inactiv e 2023 05407 70904 1 Topica l False HYDROCORTIS ONE/PARMOXI NE [...] 5-10 50 mg 12/20 Inactiv e 2023 99901 49727 0 Every 4 hours as needed By Mouth False Tylenol 325 mg tablet 325 mg By Mouth Every 4 hours as needed For DX- PAIN PRN FOR MILD PAIN, DO NOT EXCEED 3000MG APAP/24 HOURS 325 mg 12/20 Inactiv e 2023 65133 79005 0 Every 4 hours as needed By Mouth False Baclofen 20 mg tablet [generic] 20 mg By Mouth 4 times a day For MUSCLE SPASMS 20 mg 12/20 Inactiv e 2023 34996 69232 1 4 times a day By Mouth False Calcium citrate 250 mg tablet [generic] Once daily TAKE 4 TABLETS (1000MG) BY MOUTH For SUPPLEMENT 1000 MG 06/26 Inactiv e 2023 62422 70875 6 Once daily By Mouth False Dulcolax (bisacodyl) 10 mg rectal suppository 10 mg Rectal Once daily For CONSTIPATION *MAY HOLD FOR LOOSE STOOLS* 10 mg 2023 Active 2023 60672 76722 1 Once daily Rectal False Gabapentin 300 mg capsule [generic] 300 mg By Mouth 3 times a day For NEUROPATHY 300 mg 2023 Active 2023 13505 22858 4 3 times a day By Mouth False Potassium citrate ER 15 mEq (1,620 mg) tablet,exte nded release [generic] 15 mEq By Mouth 3 times a day For SUPPLEMENT/DI URETIC USE/HYPOCITRA URIA 15 mEq 06/11 Inactiv e 2023 99111 12458 1 3 times a day By Mouth False Potassium chloride ER 20 mEq tablet,exte nded release [generic] 20 mEq By Mouth 3 times a day *DO NOT CRUSH, CHEW OR BREAK* For SUPPLEMENT 20 mEq 12/18 Inactiv e 2023 87614 41904 1 3 times a day By Mouth False Tizanidine 4 mg tablet [generic] 4 mg By Mouth Once daily For MUSCLE SPASMS 4 mg 2023 Active 2023 13210 52414 0 Once daily By Mouth False Tylenol 325 mg tablet 2 tabs By Mouth Every 4 hours as needed For Fever >100 DO NOT EXCEED 3000 MG APAP/24 Hours 2 tabs 12/20 Inactiv e 2023 39060 52670 0 Every 4 hours as needed By Mouth False Dulcolax (bisacodyl) 10 mg rectal suppository Daily as needed For Constipation 1 sup 12/20 Inactiv e 2023 47525 62078 1 Daily as needed Rectal False Fleet Enema 19 gram-7 gram/118 mL 1 Rectal Daily as neededFor Constipation 1 12/20 Inactiv e 2023 95227 45600 6 Daily as needed Rectal False Milk of Magnesia 400 mg/5 mL oral suspension [Magnesium hydroxide] PRN 30ml By Mouth Daily as needed for constipation one time daily if no BM, on day 4 of no BM (PRN refer to instructions) For Constipation For Constipatioin 30ml 12/20 Inactiv e 2023 76698 59708 6 1 time By Mouth False Melatonin 3 mg tablet [generic] 3 mg By Mouth Once daily As Needed For INSOMNIA 3 mg 12/20 Inactiv e 2023 80054 36192 8 Once daily By Mouth False Hydrocortis one 1 % topical cream [generic] 1 % Rectal Four times daily as needed For hemorroid pain 1 % 12/20 Inactiv e 2023 96326 90779 1 Four times daily as needed Rectal False X-STGH ANTACID 750MG CHEW TAKE (1) TABLET BY MOUTH THREE TIMES DAILY NEEDED FOR INDIGESTION 12/20 Inactiv e 2023 04869 40902 4 Three times daily as needed Saline Mist 0.65 % nasal spray aerosol 0.65 % Nares Four times daily as needed For DRYNESS 0.65 % 12/20 Inactiv e 2023 63910 57328 8 Four times daily as needed Nares False Vicks Vaporub 4.7 %-1.2 %-2.6 % topical ointment Apply topically to chest Three times daily as needed For CONGESTION 4.7-1.2 -2.6 12/20 Inactiv e 2023 03315 01410 1 Three times daily as needed Topica l False VITAMIN D3 2000U CAP TAKE ONE (1) CAPSULE BY MOUTH DAILY* DO NOT CRUSH, CHEW OR BREAK* For Supplement 1 capsule 12/19 Inactiv e 2023 29042 06238 0 Once daily By Mouth False Potassium chloride ER 20 mEq tablet,exte nded release(par t/cryst) [generic] TAKE (1) TABLET BY MOUTH THREE TIMES DAILY (MORNING, AFTERNOON, EVENING)*DO NOT CRUSH, CHEW, OR BREAK* For SUPPLEMENT 20 MEQ 06/11 Inactiv e 2023 08367 98860 5 3 times a day By Mouth False Aspirin 81 mg tablet,camron yed release [generic] TAKE ONE (1) TABLET BY MOUTH ONCE DAILY*DO NOT CRUSH, CHEW OR BREAK* For CAD 81 MG 12/22 Inactiv e 2023 78678 40183 0 Once daily By Mouth False Furosemide 20 mg tablet [generic] TAKE 1 AND 1/2 TABLETS (30MG) BY MOUTH ONCE DAILY For CHF 30mg 2023 Active 2023 85828 24211 1 Once daily By Mouth False Polyethylen e glycol 3350 17 gram/dose oral powder [generic] MIX 17 GRAMS (1 CAPFUL) IN 60Z OF LIQUID AND DRINK BY MOUTH ONCE DAILY *HOLD FOR LOOSE STOOLS* For constipation 17 g 2023 Active 2023 12034 28092 3 Once daily By Mouth False Vitamin D3 50 mcg (2,000 unit) capsule Once daily TAKE ONE (1) CAPSULE BY MOUTH DAILY* DO NOT CRUSH, CHEW OR BREAK* For Supplement 1 capsule 02/07 Inactiv e 2023 78879 93654 2 Once daily By Mouth False Fleet Enema 19 gram-7 gram/118 mL 1 Rectal Daily as neededFor Constipation 1 2023 0000 Active 2023 40658 99758 6 Daily as needed Rectal False Tums E-X 300 mg (as calcium carbonate 750 mg) chewable tablet 1 tab By Mouth TAKE (1) TABLET BY MOUTH THREE TIMES DAILY NEEDED FOR INDIGESTION 1 tab 202300 /0000 Active 2023 70353 76781 1 Three times daily as needed By Mouth False Tylenol 325 mg tablet 2 tabs By Mouth Every 4 hours as needed For Fever >100 DO NOT EXCEED 3000 MG APAP/24 Hours 2 tabs 202300 /0000 Active 2023 36575 47536 0 Every 4 hours as needed By Mouth False Vicks Vaporub 4.7 %-1.2 %-2.6 % topical ointment Apply topically to chest Three times daily as needed For CONGESTION topical 202300 Active 2023 85039 32776 1 Three times daily as needed Topica l False Tylenol 325 mg tablet 2 tabs By Mouth Every 4 hours as needed For DX- PAIN PRN FOR MILD PAIN, DO NOT EXCEED 3000MG APAP/24 HOURS 2 tabs 202300 Active 2023 76419 59719 0 Every 4 hours as needed By Mouth False Tramadol 50 mg tablet [generic] 1 tab By Mouth Every 4 hours as needed For DX- PAIN 5-10 1 tab 03/10 Inactiv e 2023 02901 30960 0 Every 4 hours as needed By Mouth False Saline Mist 0.65 % nasal spray aerosol 2 sprays Nares Four times daily as needed For DRYNESS 2 sprays 202300 / Active 2023 44831 13880 8 Four times daily as needed Nares False Dulcolax (bisacodyl) 10 mg rectal suppository Daily as needed For Constipation 1 sup 202300 / Active 2023 20344 21784 1 Daily as needed Rectal False Hydrocortis one-pramoxi ne 1 %-1 % rectal cream [generic] 1 mague Rectal Four times daily as needed For hemorroid pain 1 mague 202300 /0000 Active 2023 76989 68288 4 Four times daily as needed Rectal False Melatonin 3 mg tablet [generic] 1 tab By Mouth At bedtime as needed For INSOMNIA 1 tab 12/24 Inactiv e 2023 79771 86456 8 At bedtime as needed By Mouth False Milk of Magnesia 400 mg/5 mL oral suspension 30ml By Mouth Daily as needed Daily as needed for constipation one time daily if no BM, on day 4 of no BM (PRN refer to instructions) For Constipation For Constipatioin 30ml 2023 Active 2023 03762 12455 2 Daily as needed By Mouth False Baclofen 20 mg tablet [generic] 20 mg By Mouth 4 times a day For MUSCLE SPASMS 20 mg 2023 Active 2023 61843 96739 1 4 times a day By Mouth False Melatonin 3 mg tablet [generic] 1 tab By Mouth At bedtime as needed For INSOMNIA 1 tab 2023 Active 2023 07180 94333 8 At bedtime as needed By Mouth False Bactrim DS 800 mg-160 mg tablet 1 tab By Mouth Twice daily For URINARY TRACT INFECTION, SITE NOT SPECIFIED 1 tab 01/06 Inactiv e 2023 09662 42641 1 Twice daily By Mouth N39.0 False Cefdinir 300 mg capsule [generic] 300 mg By Mouth Twice daily For UTI 300 mg 01/07 Inactiv e 2023 61285 82349 0 Twice daily By Mouth False Cefdinir 300 mg capsule [generic] 300 mg By Mouth Twice daily For UTI 300 mg 01/17 Inactiv e 2023 13758 61633 0 Twice daily By Mouth False Zyrtec 10 mg tablet 10 mg By Mouth Once daily For sinus congestion 10 mg 01/22 Inactiv e 2023 24770 09313 0 Once daily By Mouth False Tobramycin 0.3 %-dexametha sone 0.1 % eye drops,suspe nsion [generic] 0.3-0.1 % Left Eye 4 times a day For eye infection 0.3-0.1 % 02/05 Inactiv e 2023 27593 49061 5 4 times a day Left Eye False Fluconazole 150 mg tablet [generic] 150 mg By Mouth 1 time For yeast infection 150 mg 02/15 Inactiv e 2023 11175 61366 2 1 time By Mouth False Tramadol 50 mg tablet [generic] 1 tab By Mouth Every 4 hours as needed For DX- PAIN 5-10 1 tab 2023 00/00 /0000 Active 2023 69768 97096 0 Every 4 hours as needed By Mouth False Tobramycin 0.3 %-dexametha sone 0.1 % eye drops,suspe nsion [generic] 1 drop Left Eye 4 times a day For Inflammation of left eye 1 drop 05/08 Inactiv e 2023 15173 16926 5 4 times a day Left Eye False Voltaren Arthritis Pain 1 % topical gel 2 gm Topical Twice daily to rigth shoulder for 2 weeks For pain 2 gm 05/08 Inactiv e 2023 19882 29336 1 Twice daily Topica l False Chlorthalid one 25 mg tablet [generic] 12.5mg By Mouth Once daily For HTN 12.5mg 05/06 Inactiv e 2023 07364 00061 0 Once daily By Mouth False Chlorthalid one 25 mg tablet [generic] 12.5mg By Mouth Once daily For HTN 12.5mg 05/07 Inactiv e 2023 77261 48002 0 Once daily By Mouth False Chlorthalid one 25 mg tablet [generic] 05/07 Inactiv e 2023 14505 03989 0 Chlorthalid one 25 mg tablet [generic] 12.5mg By Mouth Once daily For HTN 12.5mg 06/26 Inactiv e 2023 59625 20004 0 Once daily By Mouth False Norvasc 5 mg tablet 5mg By Mouth Once daily, hold medication if systolic is less than 90 For HYPERTENSIVE HEART DISEASE WITHOUT HEART FAILURE 5mg 06/03 Inactiv e 2023 22966 16260 1 Once daily By Mouth I11.9 False Norvasc 5 mg tablet 5mg By Mouth Once daily, hold medication if systolic is less than 90 For HYPERTENSIVE HEART DISEASE WITHOUT HEART FAILURE 5mg 06/03 Inactiv e 2023 56121 60687 1 Once daily By Mouth I11.9 False Norvasc 5 mg tablet 5mg By Mouth Once daily, hold medication if systolic is less than 90 For HYPERTENSIVE HEART DISEASE WITHOUT HEART FAILURE 5mg 06/26 Inactiv e 2023 29489 48134 1 Once daily By Mouth I11.9 False [...] 10 mg 2023 00/00 /0000 Active 2023 75144 14213 1 Once daily By Mouth False DISCONTINUE [...] CAD 81 mg 06/14 Inactiv e 2023 15352 12629 9 Once daily By Mouth False Aspirin 81 mg tablet,camron yed release [generic] 06/14 Inactiv e 2023 46525 37750 9 Aspirin 81 mg tablet,camron yed release [generic] 81 mg By Mouth Once daily Do not crush, chew, or break For CAD 81 mg 06/154 Inactiv e 2023 06391 50784 9 Once daily By Mouth False Cefpodoxime 200 mg tablet [generic] 200mg By Mouth Twice daily For UTI 200mg 07/04 Inactiv e 2023 43505 67124 0 Twice daily By Mouth False Calcium citrate 250 mg tablet [generic] 06/26 Inactiv e 2023 23264 70358 6 Calcium citrate 250 mg tablet [generic] Once daily TAKE 4 TABLETS (1000MG) BY MOUTH For SUPPLEMENT 500 MG 2023 Active 2023 66827 03490 6 Once daily By Mouth False Norvasc 5 mg tablet 7.5 mg By Mouth Once daily Hold medication if SBP <90 For HYPERTENSIVE HEART DISEASE WITHOUT HEART FAILURE 7.5 mg 06/30 Inactiv e 2023 75184 90693 1 Once daily By Mouth I11.9 False Norvasc 5 mg tablet 7.5 mg By Mouth Once daily Hold medication if SBP <90 For HYPERTENSIVE HEART DISEASE WITHOUT HEART FAILURE 7.5 mg 07/06 Inactiv e 2023 67858 14071 1 Once daily By Mouth I11.9 False Simethicone 125 mg capsule [generic] 2 capule By Mouth Twice daily as needed For bloating/gas pain 2 capule 2023 Active 2023 23041 18296 0 Twice daily as needed By Mouth False Cepacol Sore Throat (benzocaine -menthol) 15 mg-2.6 mg lozenges 2 lozenges By Mouth Every 6 hours as needed For sore throat 2 lozenge s 2023 Active 2023 75519 90628 6 Every 6 hours as needed By Mouth False Cefepime 1 gram solution for injection [generic] 1g Intramuscular Every 12 hours 1g intramuscular ly ever 12 hours For UTI 1g 07/06 Inactiv e 2023 92246 25637 4 Every 12 hours Intram uscula r False Cefepime 1 gram solution for injection [generic] 07/06 Inactiv e 2023 18402 87848 4 Cefepime 1 gram solution for injection [generic] 1g Intramuscular Every 12 hours 1g intramuscular ly ever 12 hours For UTI Reconstitute with 2.4 ML of NSS. 1g 07/08 Inactiv e 2023 91602 43060 4 Every 12 hours Intram uscula r False Norvasc 5 mg tablet 07/06 Inactiv e 2023 65432 69253 1 I11.9 Norvasc 5 mg tablet 7.5 mg By Mouth Once daily Hold medication if SBP <90 For HYPERTENSIVE HEART DISEASE WITHOUT HEART FAILURE 7.5 mg 07/18 Inactiv e 2023 11771 26059 1 Once daily By Mouth I11.9 False Cefepime 1 gram solution for injection [generic] 07/08 Inactiv e 2023 35782 03769 4 Cefepime 1 gram solution for injection [generic] 1g Intramuscular Every 12 hours 1g intramuscular ly ever 12 hours For UTI Reconstitute with 2.4 ML of NSS. 1g 07/08 Inactiv e 2023 24730 04085 4 Every 12 hours Intram uscula r False Cefepime 1 gram solution for injection [generic] 07/08 Inactiv e 2023 66028 68897 4 Cefepime 1 gram solution for injection [generic] 1g Intramuscular Every 12 hours 1g intramuscular ly ever 12 hours For UTI Reconstitute with 2.4 ML of NSS. 1g 07/11 Inactiv e 2023 52916 18557 4 Every 12 hours Intram uscula r False Fleet Enema 19 gram-7 gram/118 mL 1 Rectal 1 time For constipation 1 07/16 Inactiv e 2024 80333 31547 6 1 time Rectal False Fleet Enema 19 gram-7 gram/118 mL 1 Rectal 1 time For constipation 1 07/17 Inactiv e 2024 55044 21908 6 1 time Rectal False Norvasc 5 mg tablet 7.5 mg By Mouth Once daily For HYPERTENSIVE HEART DISEASE WITHOUT HEART FAILURE 7.5 mg 2024 Active 2024 02850 42957 1 Once daily By Mouth I11.9 False Potassium chloride ER 20 mEq tablet,exte nded release(par t/cryst) [generic] 40 mEq By Mouth 1 time For low potassium prior to surgery 40 mEq 07/19 Active 2024 43325 81450 1 1 time By Mouth False Nystatin 100,000 unit/gram topical cream [generic] 100,000 unit Topical As Needed For DX- EXCORIATION 100,000 unit 12/12 Inactiv e 2023 81787 13629 5 Topica l False Vicks Vaporub 4.7 %-1.2 %-2.6 % topical ointment 4.7-1.2-2.6 Topical 3 times a day As Needed For DX- CONGESTION 4.7-1.2 -2.6 12/12 Inactiv e 2023 99926 01955 1 3 times a day Topica l False Ketoconazol e 2 % shampoo [generic] APPLY SHAMPOO TOPICALLY TO SCALP DURING HAIR WASHINGDX: ELVIA DERM OF SCALP For DX- ELVIA DERM OF SCALP 12/12 Inactiv e 2023 33670 82772 4 Topica l False THERA SILICONE SKIN GUARD Topical Twice daily 1 APPLICATION TOPICALLY IN THE MORNING AND AT BEDTIME TO SCROTUM For DX- PREVENTION 2023 Active 2023 Twice daily Topica l False Selenium sulfide 2.5 % lotion [generic] 2.5 % Topical EVERY MONDAY, MONDAY AND MONDAY AFTER SHOWER For DANDRUFF 2.5 % 2023 Active 2023 13761 02597 4 3 times a week Topica l False Nystatin (bulk) 100 million unit powder [generic] 100 million Topical Twice daily as needed For EXOCORATION 100 million 12/20 Inactiv e 2023 30434 70412 1 Twice daily as needed Topica l False Ketoconazol e 2 % shampoo [generic] Once daily APPLY SHAMPOO TOPICALLY TO SCALP DURING HAIR WASHING ON SHOWER DAYS- LITTLE SAHA, SAT For ELVIA DERM OF SCAP 2 % 2023 Active 2023 96526 97477 4 Once daily Topica l False Nystatin 100,000 unit/gram topical cream [generic] 1 mague Topical Twice daily as needed For EXOCORATION 1 mague 06/05 Inactiv e 2023 02016 19608 5 Twice daily as needed Topica l False Nystatin 100,000 unit/gram topical powder [generic] 100,000 unit Topical Twice daily to scrotum with AM and PM care For Scrotal excoriation 100,000 unit 06/05 Inactiv e 2023 31367 42676 5 Twice daily Topica l False Problems [...] Temperature SpO2 Blood Sugar Pulse Respirations 210 85801 6 80.00 mm[Hg] - Sitting 132.00 mm[Hg] - Sitting 07235 211 57619 5 78.00 mm[Hg] - Sitting 125.00 mm[Hg] - Sitting 96450 216 41764 1 254.10 NI [address]391 216 08141 2 79.00 mm[Hg] - Sitting 157.00 mm[Hg] - Sitting 73 NI 254.10 NI 36.30 Tympanic 95.00 % 72.00/ min 16.00/min 33012 216 34106 4 98.80 Tympanic 53543 216 42497 2 78.00 mm[Hg] - Sitting 164.00 mm[Hg] - Sitting 41531 217 63388 3 98.20 Tympanic 45722 217 79084 5 73.00 mm[Hg] - Sitting 159.00 mm[Hg] - Sitting 76913 217 42014 9 98.40 Forehead Scan 31574 218 02642 3 97.90 Tympanic 64676 218 38505 5 77.00 mm[Hg] - Sitting 137.00 mm[Hg] - Sitting 84012 219 15096 0 97.70 Tympanic 72140 219 77477 6 97.60 Tympanic 36564 219 37993 4 76.00 mm[Hg] - Sitting 139.00 mm[Hg] - Sitting 67110 219 36010 4 97.80 Forehead Scan 26167 220 20019 9 97.90 Tympanic 55387 220 68386 9 76.00 mm[Hg] - Sitting 138.00 mm[Hg] - Sitting 50403 220 65051 6 98.10 Tympanic 45760 221 74918 5 67.00 mm[Hg] - Sitting 142.00 mm[Hg] - Sitting 75322 221 43039 8 98.20 Tympanic 77139 221 28270 0 98.30 Tympanic 10490 222 71975 7 98.20 Tympanic 91654 222 50314 8 97.90 Tympanic 31169 223 29909 3 98.20 Tympanic 66019 223 91055 3 98.00 Tympanic 51829 224 34195 0 59.00 mm[Hg] - Sitting 111.00 mm[Hg] - Sitting 98.40 Forehead Scan 95.00 % 56.00/ min 18.00/min 76341 224 15459 9 98.20 Forehead Scan 24263 224 56135 3 97.90 Tympanic 63019 225 89129 4 98.20 Tympanic 76563 225 76791 8 97.50 Forehead Scan 55361 228 66671 0 55.00 mm[Hg] - Sitting 118.00 mm[Hg] - Sitting 98.40 Tympanic 69.00/ min 00829 229 38765 8 78.00 mm[Hg] - Sitting 152.00 mm[Hg] - Sitting 41762 230 15510 0 62.00 mm[Hg] - Sitting 122.00 mm[Hg] - Sitting 26819 231 95161 7 72.00 mm[Hg] - Lying Down 140.00 mm[Hg] - Lying Down 30204 101 68392 3 97.70 Forehead Scan 47820 101 54527 1 254.10 NI 69.00/ min 29437 101 33103 9 72.00 mm[Hg] - Sitting 142.00 mm[Hg] - Sitting 97.70 Tympanic 18.00/min 18473 101 27845 3 72.00 mm[Hg] - Lying Down 142.00 mm[Hg] - Lying Down 25898 102 03460 8 68.00 mm[Hg] - Lying Down 152.00 mm[Hg] - Lying Down 56666 103 92437 5 74.00 mm[Hg] - Sitting 158.00 mm[Hg] - Sitting 73732 104 98140 9 78.00 mm[Hg] - Sitting 144.00 mm[Hg] - Sitting 38079 105 78259 5 68.00 mm[Hg] - Sitting 138.00 mm[Hg] - Sitting 51828 106 23718 1 70.00 mm[Hg] - Sitting 138.00 mm[Hg] - Sitting 21884 107 40774 1 67.00 mm[Hg] - Sitting 142.00 mm[Hg] - Sitting 79027 108 06992 0 74.00 mm[Hg] - Sitting 143.00 mm[Hg] [...]
--- OUTSIDE RECORDS SUMMARY | 2024-07-26 11:18 | External Medical Summary | Continuity Of Care Document ---
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 Name Role Phone DO Pritchett Amy Primary Care Provider [phone] Allergies Allergy Reaction Start Date End Date Status AMINOGLYCOSIDES Active CIPRO Active GENTAMICIN Active NSAIDS (NON-STEROIDAL ANTI-INFLAMMATORY DRUG) 0 Active IBUPROFEN Active QUINOLONES Active VALIUM Active Medications Medication Instructions Dosage Start Date End Date Status Order Date Drug Code Frequency Route of Admin Diagnosis Code Substitutions Allowed Spikevax 5337-6307(1 2y up)(PF) 50 mcg/0.5 mL intramuscul ar suspension [COVID [id number](12 up)(andu)(P F)] 0.5mL Intramuscular 1 time Monitory 15 Minutes post injection for adverse effects; record site/temp For COVID 19 PREVENTION 0.5mL 01/02 Inactiv e 2023 51216 18391 4 1 time Intram uscula r False [facility] - Nurse initials indicate verificatio n that [id number] vaccine was administere d by [facility] jon 1 Intramuscular 1 time ( Indicate vaccine type) For vaccine 1 05/03 Inactiv e 2023 1 time Intram uscula r False Lisinopril 40 mg tablet [generic] TAKE ONE (1) TABLET BY MOUTH IN THE MORNING. For DX- HTN 1 2023 Active 2023 02810 55235 1 Once daily By Mouth False Tizanidine 2 mg tablet [generic] TAKE ONE (1) TABLET BY MOUTH ONCE DAILY For MUSCLE SPASM 1 2023 Active 2023 83947 77275 0 Once daily By Mouth M62.838 False Tamsulosin 0.4 mg capsule [generic] TAKE (1) CAPSULE BY MOUTH AT BEDTIME For SPASMS 1 2023 Active 2023 83056 85939 0 Once daily By Mouth False Aspirin 81 mg tablet Once daily 1 TABLET BY MOUTH IN THE MORNING For DX- CAD DO NOT CRUSH, CHEW OR BREAK 81 mg 06/12 Inactiv e 2023 Once daily By Mouth False Baclofen 20 mg tablet [generic] 20 mg By Mouth 4 times a day For DX- MUSCLE SPASMS 20 mg 12/12 Inactiv e 2023 56054 02287 1 4 times a day By Mouth False Calcium citrate 250 mg tablet Once daily 4 TABLET BY MOUTH For DX- SUPPLEMENT 250 mg calci 12/12 Inactiv e 2023 Once daily By Mouth False Co Q-10 100 mg capsule 100 mg By Mouth Once daily For DX- SUPPLEMENT 100 mg 06/20 Inactiv e 2023 46278 94906 5 Once daily By Mouth False Furosemide 20 mg tablet [generic] 20 mg By Mouth Once daily For DX-CHF 20 mg 12/12 Inactiv e 2023 61440 33958 0 Once daily By Mouth False Gabapentin 300 mg capsule [generic] 300 mg By Mouth 3 times a day For DX- NEUROPATHY 300 mg 12/12 Inactiv e 2023 11161 81896 4 3 times a day By Mouth False Loratadine 10 mg tablet [generic] 10 mg By Mouth Once daily For DX- ALLERGIES 10 mg 2023 Active 2023 44780 23483 1 Once daily By Mouth False Miralax 17 gram/dose oral powder 17 gram/dose By Mouth IN THE MORNING Mix 1 TABLESPOON IN 8 OZ OF FLUID HOLD FOR LOOSE STOOLS For DX- CONSTIPATION 17 gram/do se 12/12 Inactiv e 2023 84855 12293 0 Once daily By Mouth False Paroxetine 30 mg tablet [generic] 30 mg By Mouth Once daily For DX- DEPRESSION 30 mg 2023 00/00 /0000 Active 2023 30078 74743 3 Once daily By Mouth False Potassium citrate ER 15 mEq (1,620 mg) tablet,exte nded release [generic] 15 mEq By Mouth 3 times a day For DX- SUPPLEMENT/DI URETIC USE/ HYPOCITRAUIRA DO NOT CRUSH 15 mEq 12/12 Inactiv e 2023 49042 78197 1 3 times a day By Mouth [...] For DX- DANDRUFF 12/12 Inactiv e 2023 74954 45373 4 3 times a week Topica l False Acetaminoph en 325 mg tablet [generic] TAKE 2 TABS (650MG) BY MOUTH EVERY 4 HOURS NEEDED FOR TEMP >100 NOT TO EXCEED 3GM/24HRS TAKE 2 TABS (650MG) BY MOUTH EVERY 4 HOURS NEEDED FOR TEMP >100 NOT TO EXCEED 3GM/24HRS For DX-FEVER 2 12/12 Inactiv e 2023 62546 18673 0 By Mouth False MILK OF MAGNESIA ADMINISTER 30 ML BY MOUTH ONCE DAILY NEEDED FOR CONSTIPATION X3 DAYS WITH NO BM. For DX- CONSTIPATION 30ML 12/12 Inactiv e 2023 35418 44253 9 By Mouth False Enema Disposable 19 gram-7 gram/118 mL ADMINISTER ONE ENEMA RECTALLY ONCE DAILY NEEDED FOR CONSTIPATION ON DAY 6 OF NO BM For DX- CONSTIPATION 12/12 Inactiv e 2023 51094 00116 1 Rectal False TUMS EXTRA STR 750MG TAKE (1) TABLET BY MOUTH THREE TIMES DAILY NEEDED FOR INDIGESTION For DX- INDIGESTION 1 12/12 Inactiv e 2023 17214 19986 8 By Mouth False Vitamin D3 25 [...] CONSTIPATION 10 mg 12/12 Inactiv e 2023 60688 79152 1 Rectal False Melatonin 3 mg tablet [generic] 3 mg By Mouth As Needed For DX-INSOMMIA 3 mg 12/12 Inactiv e 2023 43146 14311 8 By Mouth False Hydrocortis one 1 % topical cream [generic] 1 % Topical As Needed For DX- PAIN 1 % 12/12 Inactiv e 2023 30805 51451 1 Topica l False HYDROCORTIS ONE/PARMOXI NE [...] 5-10 50 mg 12/20 Inactiv e 2023 81299 73695 0 Every 4 hours as needed By Mouth False Tylenol 325 mg tablet 325 mg By Mouth Every 4 hours as needed For DX- PAIN PRN FOR MILD PAIN, DO NOT EXCEED 3000MG APAP/24 HOURS 325 mg 12/20 Inactiv e 2023 63737 09023 0 Every 4 hours as needed By Mouth False Baclofen 20 mg tablet [generic] 20 mg By Mouth 4 times a day For MUSCLE SPASMS 20 mg 12/20 Inactiv e 2023 74775 37424 1 4 times a day By Mouth False Calcium citrate 250 mg tablet [generic] Once daily TAKE 4 TABLETS (1000MG) BY MOUTH For SUPPLEMENT 1000 MG 06/26 Inactiv e 2023 14062 16636 6 Once daily By Mouth False Dulcolax (bisacodyl) 10 mg rectal suppository 10 mg Rectal Once daily For CONSTIPATION *MAY HOLD FOR LOOSE STOOLS* 10 mg 2023 Active 2023 02881 95193 1 Once daily Rectal False Gabapentin 300 mg capsule [generic] 300 mg By Mouth 3 times a day For NEUROPATHY 300 mg 2023 Active 2023 11894 79795 4 3 times a day By Mouth False Potassium citrate ER 15 mEq (1,620 mg) tablet,exte nded release [generic] 15 mEq By Mouth 3 times a day For SUPPLEMENT/DI URETIC USE/HYPOCITRA URIA 15 mEq 06/11 Inactiv e 2023 38202 25755 1 3 times a day By Mouth False Potassium chloride ER 20 mEq tablet,exte nded release [generic] 20 mEq By Mouth 3 times a day *DO NOT CRUSH, CHEW OR BREAK* For SUPPLEMENT 20 mEq 12/18 Inactiv e 2023 03735 17289 1 3 times a day By Mouth False Tizanidine 4 mg tablet [generic] 4 mg By Mouth Once daily For MUSCLE SPASMS 4 mg 2023 Active 2023 09599 01167 0 Once daily By Mouth False Tylenol 325 mg tablet 2 tabs By Mouth Every 4 hours as needed For Fever >100 DO NOT EXCEED 3000 MG APAP/24 Hours 2 tabs 12/20 Inactiv e 2023 84622 73580 0 Every 4 hours as needed By Mouth False Dulcolax (bisacodyl) 10 mg rectal suppository Daily as needed For Constipation 1 sup 12/20 Inactiv e 2023 65566 95462 1 Daily as needed Rectal False Fleet Enema 19 gram-7 gram/118 mL 1 Rectal Daily as neededFor Constipation 1 12/20 Inactiv e 2023 18998 27603 6 Daily as needed Rectal False Milk of Magnesia 400 mg/5 mL oral suspension [Magnesium hydroxide] PRN 30ml By Mouth Daily as needed for constipation one time daily if no BM, on day 4 of no BM (PRN refer to instructions) For Constipation For Constipatioin 30ml 12/20 Inactiv e 2023 42910 39882 6 1 time By Mouth False Melatonin 3 mg tablet [generic] 3 mg By Mouth Once daily As Needed For INSOMNIA 3 mg 12/20 Inactiv e 2023 51582 75615 8 Once daily By Mouth False Hydrocortis one 1 % topical cream [generic] 1 % Rectal Four times daily as needed For hemorroid pain 1 % 12/20 Inactiv e 2023 52230 03456 1 Four times daily as needed Rectal False X-STGH ANTACID 750MG CHEW TAKE (1) TABLET BY MOUTH THREE TIMES DAILY NEEDED FOR INDIGESTION 12/20 Inactiv e 2023 39379 01065 4 Three times daily as needed Saline Mist 0.65 % nasal spray aerosol 0.65 % Nares Four times daily as needed For DRYNESS 0.65 % 12/20 Inactiv e 2023 76805 56731 8 Four times daily as needed Nares False Vicks Vaporub 4.7 %-1.2 %-2.6 % topical ointment Apply topically to chest Three times daily as needed For CONGESTION 4.7-1.2 -2.6 12/20 Inactiv e 2023 28738 67869 1 Three times daily as needed Topica l False VITAMIN D3 2000U CAP TAKE ONE (1) CAPSULE BY MOUTH DAILY* DO NOT CRUSH, CHEW OR BREAK* For Supplement 1 capsule 12/19 Inactiv e 2023 36318 20233 0 Once daily By Mouth False Potassium chloride ER 20 mEq tablet,exte nded release(par t/cryst) [generic] TAKE (1) TABLET BY MOUTH THREE TIMES DAILY (MORNING, AFTERNOON, EVENING)*DO NOT CRUSH, CHEW, OR BREAK* For SUPPLEMENT 20 MEQ 06/11 Inactiv e 2023 33877 59775 5 3 times a day By Mouth False Aspirin 81 mg tablet,camron yed release [generic] TAKE ONE (1) TABLET BY MOUTH ONCE DAILY*DO NOT CRUSH, CHEW OR BREAK* For CAD 81 MG 12/22 Inactiv e 2023 52929 42830 0 Once daily By Mouth False Furosemide 20 mg tablet [generic] TAKE 1 AND 1/2 TABLETS (30MG) BY MOUTH ONCE DAILY For CHF 30mg 2023 Active 2023 59259 22013 1 Once daily By Mouth False Polyethylen e glycol 3350 17 gram/dose oral powder [generic] MIX 17 GRAMS (1 CAPFUL) IN 60Z OF LIQUID AND DRINK BY MOUTH ONCE DAILY *HOLD FOR LOOSE STOOLS* For constipation 17 g 2023 Active 2023 53881 08275 3 Once daily By Mouth False Vitamin D3 50 mcg (2,000 unit) capsule Once daily TAKE ONE (1) CAPSULE BY MOUTH DAILY* DO NOT CRUSH, CHEW OR BREAK* For Supplement 1 capsule 02/07 Inactiv e 2023 84165 21988 2 Once daily By Mouth False Fleet Enema 19 gram-7 gram/118 mL 1 Rectal Daily as neededFor Constipation 1 2023 0000 Active 2023 85849 87219 6 Daily as needed Rectal False Tums E-X 300 mg (as calcium carbonate 750 mg) chewable tablet 1 tab By Mouth TAKE (1) TABLET BY MOUTH THREE TIMES DAILY NEEDED FOR INDIGESTION 1 tab 202300 /0000 Active 2023 68418 74690 1 Three times daily as needed By Mouth False Tylenol 325 mg tablet 2 tabs By Mouth Every 4 hours as needed For Fever >100 DO NOT EXCEED 3000 MG APAP/24 Hours 2 tabs 202300 /0000 Active 2023 87720 56525 0 Every 4 hours as needed By Mouth False Vicks Vaporub 4.7 %-1.2 %-2.6 % topical ointment Apply topically to chest Three times daily as needed For CONGESTION topical 202300 Active 2023 23837 75335 1 Three times daily as needed Topica l False Tylenol 325 mg tablet 2 tabs By Mouth Every 4 hours as needed For DX- PAIN PRN FOR MILD PAIN, DO NOT EXCEED 3000MG APAP/24 HOURS 2 tabs 202300 Active 2023 62416 12973 0 Every 4 hours as needed By Mouth False Tramadol 50 mg tablet [generic] 1 tab By Mouth Every 4 hours as needed For DX- PAIN 5-10 1 tab 03/10 Inactiv e 2023 53936 61027 0 Every 4 hours as needed By Mouth False Saline Mist 0.65 % nasal spray aerosol 2 sprays Nares Four times daily as needed For DRYNESS 2 sprays 202300 / Active 2023 87746 83861 8 Four times daily as needed Nares False Dulcolax (bisacodyl) 10 mg rectal suppository Daily as needed For Constipation 1 sup 202300 / Active 2023 82817 99308 1 Daily as needed Rectal False Hydrocortis one-pramoxi ne 1 %-1 % rectal cream [generic] 1 mague Rectal Four times daily as needed For hemorroid pain 1 mague 202300 /0000 Active 2023 97914 61139 4 Four times daily as needed Rectal False Melatonin 3 mg tablet [generic] 1 tab By Mouth At bedtime as needed For INSOMNIA 1 tab 12/24 Inactiv e 2023 24787 71263 8 At bedtime as needed By Mouth False Milk of Magnesia 400 mg/5 mL oral suspension 30ml By Mouth Daily as needed Daily as needed for constipation one time daily if no BM, on day 4 of no BM (PRN refer to instructions) For Constipation For Constipatioin 30ml 2023 Active 2023 09262 17768 2 Daily as needed By Mouth False Baclofen 20 mg tablet [generic] 20 mg By Mouth 4 times a day For MUSCLE SPASMS 20 mg 2023 Active 2023 60497 85657 1 4 times a day By Mouth False Melatonin 3 mg tablet [generic] 1 tab By Mouth At bedtime as needed For INSOMNIA 1 tab 2023 Active 2023 46714 45026 8 At bedtime as needed By Mouth False Bactrim DS 800 mg-160 mg tablet 1 tab By Mouth Twice daily For URINARY TRACT INFECTION, SITE NOT SPECIFIED 1 tab 01/06 Inactiv e 2023 52988 58861 1 Twice daily By Mouth N39.0 False Cefdinir 300 mg capsule [generic] 300 mg By Mouth Twice daily For UTI 300 mg 01/07 Inactiv e 2023 83601 64635 0 Twice daily By Mouth False Cefdinir 300 mg capsule [generic] 300 mg By Mouth Twice daily For UTI 300 mg 01/17 Inactiv e 2023 68954 06071 0 Twice daily By Mouth False Zyrtec 10 mg tablet 10 mg By Mouth Once daily For sinus congestion 10 mg 01/22 Inactiv e 2023 51889 14769 0 Once daily By Mouth False Tobramycin 0.3 %-dexametha sone 0.1 % eye drops,suspe nsion [generic] 0.3-0.1 % Left Eye 4 times a day For eye infection 0.3-0.1 % 02/05 Inactiv e 2023 00682 32927 5 4 times a day Left Eye False Fluconazole 150 mg tablet [generic] 150 mg By Mouth 1 time For yeast infection 150 mg 02/15 Inactiv e 2023 18308 40820 2 1 time By Mouth False Tramadol 50 mg tablet [generic] 1 tab By Mouth Every 4 hours as needed For DX- PAIN 5-10 1 tab 2023 00/00 /0000 Active 2023 37241 64055 0 Every 4 hours as needed By Mouth False Tobramycin 0.3 %-dexametha sone 0.1 % eye drops,suspe nsion [generic] 1 drop Left Eye 4 times a day For Inflammation of left eye 1 drop 05/08 Inactiv e 2023 90831 74151 5 4 times a day Left Eye False Voltaren Arthritis Pain 1 % topical gel 2 gm Topical Twice daily to rigth shoulder for 2 weeks For pain 2 gm 05/08 Inactiv e 2023 37619 46667 1 Twice daily Topica l False Chlorthalid one 25 mg tablet [generic] 12.5mg By Mouth Once daily For HTN 12.5mg 05/06 Inactiv e 2023 23816 54726 0 Once daily By Mouth False Chlorthalid one 25 mg tablet [generic] 12.5mg By Mouth Once daily For HTN 12.5mg 05/07 Inactiv e 2023 62626 48424 0 Once daily By Mouth False Chlorthalid one 25 mg tablet [generic] 05/07 Inactiv e 2023 18472 20711 0 Chlorthalid one 25 mg tablet [generic] 12.5mg By Mouth Once daily For HTN 12.5mg 06/26 Inactiv e 2023 98133 87111 0 Once daily By Mouth False Norvasc 5 mg tablet 5mg By Mouth Once daily, hold medication if systolic is less than 90 For HYPERTENSIVE HEART DISEASE WITHOUT HEART FAILURE 5mg 06/03 Inactiv e 2023 76824 74737 1 Once daily By Mouth I11.9 False Norvasc 5 mg tablet 5mg By Mouth Once daily, hold medication if systolic is less than 90 For HYPERTENSIVE HEART DISEASE WITHOUT HEART FAILURE 5mg 06/03 Inactiv e 2023 19618 54737 1 Once daily By Mouth I11.9 False Norvasc 5 mg tablet 5mg By Mouth Once daily, hold medication if systolic is less than 90 For HYPERTENSIVE HEART DISEASE WITHOUT HEART FAILURE 5mg 06/26 Inactiv e 2023 70509 04005 1 Once daily By Mouth I11.9 False [...] 10 mg 2023 00/00 /0000 Active 2023 50104 93821 1 Once daily By Mouth False DISCONTINUE [...] CAD 81 mg 06/14 Inactiv e 2023 79526 03645 9 Once daily By Mouth False Aspirin 81 mg tablet,camron yed release [generic] 06/14 Inactiv e 2023 60629 79353 9 Aspirin 81 mg tablet,camron yed release [generic] 81 mg By Mouth Once daily Do not crush, chew, or break For CAD 81 mg 06/154 Inactiv e 2023 22523 91848 9 Once daily By Mouth False Cefpodoxime 200 mg tablet [generic] 200mg By Mouth Twice daily For UTI 200mg 07/04 Inactiv e 2023 11338 16585 0 Twice daily By Mouth False Calcium citrate 250 mg tablet [generic] 06/26 Inactiv e 2023 36754 27632 6 Calcium citrate 250 mg tablet [generic] Once daily TAKE 4 TABLETS (1000MG) BY MOUTH For SUPPLEMENT 500 MG 2023 Active 2023 13423 68523 6 Once daily By Mouth False Norvasc 5 mg tablet 7.5 mg By Mouth Once daily Hold medication if SBP <90 For HYPERTENSIVE HEART DISEASE WITHOUT HEART FAILURE 7.5 mg 06/30 Inactiv e 2023 43351 93836 1 Once daily By Mouth I11.9 False Norvasc 5 mg tablet 7.5 mg By Mouth Once daily Hold medication if SBP <90 For HYPERTENSIVE HEART DISEASE WITHOUT HEART FAILURE 7.5 mg 07/06 Inactiv e 2023 62895 75764 1 Once daily By Mouth I11.9 False Simethicone 125 mg capsule [generic] 2 capule By Mouth Twice daily as needed For bloating/gas pain 2 capule 2023 Active 2023 12050 15542 0 Twice daily as needed By Mouth False Cepacol Sore Throat (benzocaine -menthol) 15 mg-2.6 mg lozenges 2 lozenges By Mouth Every 6 hours as needed For sore throat 2 lozenge s 2023 Active 2023 69091 59234 6 Every 6 hours as needed By Mouth False Cefepime 1 gram solution for injection [generic] 1g Intramuscular Every 12 hours 1g intramuscular ly ever 12 hours For UTI 1g 07/06 Inactiv e 2023 96200 03835 4 Every 12 hours Intram uscula r False Cefepime 1 gram solution for injection [generic] 07/06 Inactiv e 2023 21315 51798 4 Cefepime 1 gram solution for injection [generic] 1g Intramuscular Every 12 hours 1g intramuscular ly ever 12 hours For UTI Reconstitute with 2.4 ML of NSS. 1g 07/08 Inactiv e 2023 11747 06743 4 Every 12 hours Intram uscula r False Norvasc 5 mg tablet 07/06 Inactiv e 2023 53153 13935 1 I11.9 Norvasc 5 mg tablet 7.5 mg By Mouth Once daily Hold medication if SBP <90 For HYPERTENSIVE HEART DISEASE WITHOUT HEART FAILURE 7.5 mg 07/18 Inactiv e 2023 30742 88297 1 Once daily By Mouth I11.9 False Cefepime 1 gram solution for injection [generic] 07/08 Inactiv e 2023 39472 19381 4 Cefepime 1 gram solution for injection [generic] 1g Intramuscular Every 12 hours 1g intramuscular ly ever 12 hours For UTI Reconstitute with 2.4 ML of NSS. 1g 07/08 Inactiv e 2023 92910 06473 4 Every 12 hours Intram uscula r False Cefepime 1 gram solution for injection [generic] 07/08 Inactiv e 2023 98703 63970 4 Cefepime 1 gram solution for injection [generic] 1g Intramuscular Every 12 hours 1g intramuscular ly ever 12 hours For UTI Reconstitute with 2.4 ML of NSS. 1g 07/11 Inactiv e 2023 56227 43635 4 Every 12 hours Intram uscula r False Fleet Enema 19 gram-7 gram/118 mL 1 Rectal 1 time For constipation 1 07/16 Inactiv e 2024 32564 08466 6 1 time Rectal False Fleet Enema 19 gram-7 gram/118 mL 1 Rectal 1 time For constipation 1 07/17 Inactiv e 2024 32479 30970 6 1 time Rectal False Norvasc 5 mg tablet 7.5 mg By Mouth Once daily For HYPERTENSIVE HEART DISEASE WITHOUT HEART FAILURE 7.5 mg 2024 0000 /0000 Active 2024 93683 74845 1 Once daily By Mouth I11.9 False Potassium chloride ER 20 mEq tablet,exte nded release(par t/cryst) [generic] 40 mEq By Mouth 1 time For low potassium prior to surgery 40 mEq 07/18 Inactiv e 2024 06516 08170 1 1 time By Mouth False Potassium chloride ER 20 mEq tablet,exte nded release(par t/cryst) [generic] 40 mEq By Mouth 1 time For low potassium prior to surgery 40 mEq 07/18 Inactiv e 2024 17603 21249 1 1 time By Mouth False Potassium chloride ER 20 mEq tablet,exte nded release(par t/cryst) [generic] 40 mEq By Mouth 1 time For low potassium 40 mEq 07/18 Inactiv e 2024 77393 99591 1 1 time By Mouth False Potassium chloride ER 20 mEq tablet,exte nded release(par t/cryst) [generic] 40 mEq By Mouth 1 time For low potassium 40 mEq 07/18 Inactiv e 2024 90132 58153 1 1 time By Mouth False Potassium chloride ER 20 mEq tablet,exte nded release [generic] 2 By Mouth 1 time For low potassium 2 07/19 Active 2024 13337 13479 1 1 time By Mouth False Potassium chloride ER 20 mEq tablet,exte nded release [generic] 2 capsules capsules By Mouth 1 time Please send capsule (2 capsules) For low potassium 2 capsule s 07/20 Active 2024 52699 29091 1 1 time By Mouth False Nystatin 100,000 unit/gram topical cream [generic] 100,000 unit Topical As Needed For DX- EXCORIATION 100,000 unit 12/12 Inactiv e 2023 47953 47299 5 Topica l False Vicks Vaporub 4.7 %-1.2 %-2.6 % topical ointment 4.7-1.2-2.6 Topical 3 times a day As Needed For DX- CONGESTION 4.7-1.2 -2.6 12/12 Inactiv e 2023 47083 85175 1 3 times a day Topica l False Ketoconazol e 2 % shampoo [generic] APPLY SHAMPOO TOPICALLY TO SCALP DURING HAIR WASHINGDX: ELVIA DERM OF SCALP For DX- ELVIA DERM OF SCALP 12/12 Inactiv e 2023 64527 94546 4 Topica l False THERA SILICONE SKIN GUARD Topical Twice daily 1 APPLICATION TOPICALLY IN THE MORNING AND AT BEDTIME TO SCROTUM For DX- PREVENTION 2023 0000 0000 Active 2023 Twice daily Topica l False Selenium sulfide 2.5 % lotion [generic] 2.5 % Topical EVERY MONDAY, MONDAY AND MONDAY AFTER SHOWER For DANDRUFF 2.5 % 2023 0000 /0000 Active 2023 88415 11000 4 3 times a week Topica l False Nystatin (bulk) 100 million unit powder [generic] 100 million Topical Twice daily as needed For EXOCORATION 100 million 12/20 Inactiv e 2023 06021 25910 1 Twice daily as needed Topica l False Ketoconazol e 2 % shampoo [generic] Once daily APPLY SHAMPOO TOPICALLY TO SCALP DURING HAIR WASHING ON SHOWER DAYS- , , MON For ELVIA DERM OF SCAP 2 % 2023 0000 /0000 Active 2023 59270 24492 4 Once daily Topica l False Nystatin 100,000 unit/gram topical cream [generic] 1 mague Topical Twice daily as needed For EXOCORATION 1 mague 06/05 Inactiv e 2023 53488 61632 5 Twice daily as needed Topica l False Nystatin 100,000 unit/gram topical powder [generic] 100,000 unit Topical Twice daily to scrotum with AM and PM care For Scrotal excoriation 100,000 unit 06/05 Inactiv e 2023 67364 54131 5 Twice daily Topica l False Problems [...] adjustment of urinary device 07/21/2023 Active Z79.01 longterm (current) use of anticoagulants 07/21 Active N31.9 [...] weight Temperature SpO2 Blood Sugar Pulse Respirations 70511 210 36640 6 80.00 mm[Hg] - Sitting 132.00 mm[Hg] - Sitting 39925 211 81024 5 78.00 mm[Hg] - Sitting 125.00 mm[Hg] - Sitting 42222 216 49507 1 254.10 NI 18481 216 80609 2 79.00 mm[Hg] - Sitting 157.00 mm[Hg] - Sitting 73 NI 254.10 NI 36.30 Tympanic 95.00 % 72.00/ min 16.00/min 59538 216 93216 4 98.80 Tympanic 84263 216 00308 2 78.00 mm[Hg] - Sitting 164.00 mm[Hg] - Sitting 96544 217 54190 3 98.20 Tympanic 90148 217 59099 5 73.00 mm[Hg] - Sitting 159.00 mm[Hg] - Sitting 04107 217 04348 9 98.40 Forehead Scan 23693 218 48747 3 97.90 Tympanic 94213 218 67736 5 77.00 mm[Hg] - Sitting 137.00 mm[Hg] - Sitting 16426 219 28722 0 97.70 Tympanic 02804 219 48451 6 97.60 Tympanic 51886 219 37231 4 76.00 mm[Hg] - Sitting 139.00 mm[Hg] - Sitting 09157 219 46633 4 97.80 Forehead Scan 19811 220 73895 9 97.90 Tympanic 61227 220 12588 9 76.00 mm[Hg] - Sitting 138.00 mm[Hg] - Sitting 49949 220 72202 6 98.10 Tympanic 89943 221 08399 5 67.00 mm[Hg] - Sitting 142.00 mm[Hg] - Sitting 55497 221 36099 8 98.20 Tympanic 17860 221 78330 0 98.30 Tympanic 95807 222 19522 7 98.20 Tympanic 82262 222 04553 8 97.90 Tympanic 65472 223 05397 3 98.20 Tympanic 68036 223 36047 3 98.00 Tympanic 44770 224 03759 0 59.00 mm[Hg] - Sitting 111.00 mm[Hg] - Sitting 98.40 Forehead Scan 95.00 % 56.00/ min 18.00/min 85460 224 57285 9 98.20 Forehead Scan 10566 224 57106 3 97.90 Tympanic 93988 225 19641 4 98.20 Tympanic 63035 225 33628 8 97.50 Forehead Scan 28063 228 94075 0 55.00 mm[Hg] - Sitting 118.00 mm[Hg] - Sitting 98.40 Tympanic 69.00/ min 88431 229 22530 8 78.00 mm[Hg] - Sitting 152.00 mm[Hg] - Sitting 62207 230 62531 0 62.00 mm[Hg] - Sitting 122.00 mm[Hg] - Sitting 48577 231 77448 7 72.00 mm[Hg] - Lying Down 140.00 mm[Hg] - Lying Down 38491 101 04115 3 97.70 Forehead Scan 11806 101 69806 1 254.10 NI 69.00/ min 30029 101 57816 9 72.00 mm[Hg] - Sitting 142.00 mm[Hg] - Sitting 97.70 Tympanic 18.00/min 10229 101 27454 3 72.00 mm[Hg] - Lying Down 142.00 mm[Hg] - Lying Down 08381 102 31877 8 68.00 mm[Hg] - Lying Down 152.00 mm[Hg] - Lying Down 72754 103 92739 5 74.00 mm[Hg] - Sitting 158.00 mm[Hg] - Sitting 15776 104 92099 9 78.00 mm[Hg] - Sitting 144.00 mm[Hg] - Sitting 48628 105 65891 5 68.00 mm[Hg] - Sitting 138.00 mm[Hg] - Sitting 67342 106 66146 1 70.00 mm[Hg] - Sitting 138.00 mm[Hg] - Sitting 93253 107 04450 1 67.00 mm[Hg] - Sitting 142.00 mm[Hg] - Sitting 59869 108 08567 0 74.00 mm[Hg] - Sitting 143.00 mm[Hg] [...]
--- OUTSIDE RECORDS SUMMARY | 2024-07-26 11:18 | External Medical Summary | Continuity Of Care Document ---
Author Name Unknown Address [address] [place] [address] Organization [facility] () Care Team Providers Care Office Professionals Name Role Phone DO Pritchett Amy Primary Care Provider [phone] Allergies Allergy Reaction Start Date End Date Status AMINOGLYCOSIDES Active CIPRO Active GENTAMICIN Active NSAIDS (NON-STEROIDAL ANTI-INFLAMMATORY DRUG) 0 Active IBUPROFEN Active QUINOLONES Active VALIUM Active Medications Medication Instructions Dosage Start Date End Date Status Order Date Drug Code Frequency Route of Admin Diagnosis Code Substitutions Allowed Spikevax [id number](1 2y up)(PF) 50 mcg/0.5 mL intramuscul ar suspension [COVID [id number](12 up)(andu)(P F)] 0.5mL Intramuscular 1 time Monitory 15 Minutes post injection for adverse effects; record site/temp For COVID 19 PREVENTION 0.5mL 01/02 Inactiv e 2023 70026 46055 4 1 time Intram uscula r False [facility] - Nurse initials indicate verificatio n that [id number] vaccine was administere d by [facility] jon 1 Intramuscular 1 time ( Indicate vaccine type) For vaccine 1 05/03 Inactiv e 2023 1 time Intram uscula r False Lisinopril 40 mg tablet [generic] TAKE ONE (1) TABLET BY MOUTH IN THE MORNING. For DX- HTN 1 2023 Active 2023 42161 84308 1 Once daily By Mouth False Tizanidine 2 mg tablet [generic] TAKE ONE (1) TABLET BY MOUTH ONCE DAILY For MUSCLE SPASM 1 2023 Active 2023 16804 76684 0 Once daily By Mouth M62.838 False Tamsulosin 0.4 mg capsule [generic] TAKE (1) CAPSULE BY MOUTH AT BEDTIME For SPASMS 1 2023 Active 2023 98158 74709 0 Once daily By Mouth False Aspirin 81 mg tablet Once daily 1 TABLET BY MOUTH IN THE MORNING For DX- CAD DO NOT CRUSH, CHEW OR BREAK 81 mg 06/12 Inactiv e 2023 Once daily By Mouth False Baclofen 20 mg tablet [generic] 20 mg By Mouth 4 times a day For DX- MUSCLE SPASMS 20 mg 12/12 Inactiv e 2023 59952 41883 1 4 times a day By Mouth False Calcium citrate 250 mg tablet Once daily 4 TABLET BY MOUTH For DX- SUPPLEMENT 250 mg calci 12/12 Inactiv e 2023 Once daily By Mouth False Co Q-10 100 mg capsule 100 mg By Mouth Once daily For DX- SUPPLEMENT 100 mg 06/20 Inactiv e 2023 02615 93785 5 Once daily By Mouth False Furosemide 20 mg tablet [generic] 20 mg By Mouth Once daily For DX-CHF 20 mg 12/12 Inactiv e 2023 84628 19308 0 Once daily By Mouth False Gabapentin 300 mg capsule [generic] 300 mg By Mouth 3 times a day For DX- NEUROPATHY 300 mg 12/12 Inactiv e 2023 59556 79907 4 3 times a day By Mouth False Loratadine 10 mg tablet [generic] 10 mg By Mouth Once daily For DX- ALLERGIES 10 mg 2023 Active 2023 02849 31992 1 Once daily By Mouth False Miralax 17 gram/dose oral powder 17 gram/dose By Mouth IN THE MORNING Mix 1 TABLESPOON IN 8 OZ OF FLUID HOLD FOR LOOSE STOOLS For DX- CONSTIPATION 17 gram/do se 12/12 Inactiv e 2023 01326 06761 0 Once daily By Mouth False Paroxetine 30 mg tablet [generic] 30 mg By Mouth Once daily For DX- DEPRESSION 30 mg 2023 00/00 /0000 Active 2023 36261 46038 3 Once daily By Mouth False Potassium citrate ER 15 mEq (1,620 mg) tablet,exte nded release [generic] 15 mEq By Mouth 3 times a day For DX- SUPPLEMENT/DI URETIC USE/ HYPOCITRAUIRA DO NOT CRUSH 15 mEq 12/12 Inactiv e 2023 75942 01361 1 3 times a day By Mouth [...] For DX- DANDRUFF 12/12 Inactiv e 2023 85323 26148 4 3 times a week Topica l False Acetaminoph en 325 mg tablet [generic] TAKE 2 TABS (650MG) BY MOUTH EVERY 4 HOURS NEEDED FOR TEMP >100 NOT TO EXCEED 3GM/24HRS TAKE 2 TABS (650MG) BY MOUTH EVERY 4 HOURS NEEDED FOR TEMP >100 NOT TO EXCEED 3GM/24HRS For DX-FEVER 2 12/12 Inactiv e 2023 32204 62301 0 By Mouth False MILK OF MAGNESIA ADMINISTER 30 ML BY MOUTH ONCE DAILY NEEDED FOR CONSTIPATION X3 DAYS WITH NO BM. For DX- CONSTIPATION 30ML 12/12 Inactiv e 2023 34985 49704 9 By Mouth False Enema Disposable 19 gram-7 gram/118 mL ADMINISTER ONE ENEMA RECTALLY ONCE DAILY NEEDED FOR CONSTIPATION ON DAY 6 OF NO BM For DX- CONSTIPATION 12/12 Inactiv e 2023 86864 18610 1 Rectal False TUMS EXTRA STR 750MG TAKE (1) TABLET BY MOUTH THREE TIMES DAILY NEEDED FOR INDIGESTION For DX- INDIGESTION 1 12/12 Inactiv e 2023 46757 20764 8 By Mouth False Vitamin D3 25 [...] CONSTIPATION 10 mg 12/12 Inactiv e 2023 98058 69561 1 Rectal False Melatonin 3 mg tablet [generic] 3 mg By Mouth As Needed For DX-INSOMMIA 3 mg 12/12 Inactiv e 2023 42369 30828 8 By Mouth False Hydrocortis one 1 % topical cream [generic] 1 % Topical As Needed For DX- PAIN 1 % 12/12 Inactiv e 2023 41593 16532 1 Topica l False HYDROCORTIS ONE/PARMOXI NE [...] 5-10 50 mg 12/20 Inactiv e 2023 53302 09086 0 Every 4 hours as needed By Mouth False Tylenol 325 mg tablet 325 mg By Mouth Every 4 hours as needed For DX- PAIN PRN FOR MILD PAIN, DO NOT EXCEED 3000MG APAP/24 HOURS 325 mg 12/20 Inactiv e 2023 45733 92095 0 Every 4 hours as needed By Mouth False Baclofen 20 mg tablet [generic] 20 mg By Mouth 4 times a day For MUSCLE SPASMS 20 mg 12/20 Inactiv e 2023 09561 76017 1 4 times a day By Mouth False Calcium citrate 250 mg tablet [generic] Once daily TAKE 4 TABLETS (1000MG) BY MOUTH For SUPPLEMENT 1000 MG 06/26 Inactiv e 2023 81169 93632 6 Once daily By Mouth False Dulcolax (bisacodyl) 10 mg rectal suppository 10 mg Rectal Once daily For CONSTIPATION *MAY HOLD FOR LOOSE STOOLS* 10 mg 2023 Active 2023 17052 45719 1 Once daily Rectal False Gabapentin 300 mg capsule [generic] 300 mg By Mouth 3 times a day For NEUROPATHY 300 mg 2023 Active 2023 33800 01084 4 3 times a day By Mouth False Potassium citrate ER 15 mEq (1,620 mg) tablet,exte nded release [generic] 15 mEq By Mouth 3 times a day For SUPPLEMENT/DI URETIC USE/HYPOCITRA URIA 15 mEq 06/11 Inactiv e 2023 59174 77158 1 3 times a day By Mouth False Potassium chloride ER 20 mEq tablet,exte nded release [generic] 20 mEq By Mouth 3 times a day *DO NOT CRUSH, CHEW OR BREAK* For SUPPLEMENT 20 mEq 12/18 Inactiv e 2023 69337 07113 1 3 times a day By Mouth False Tizanidine 4 mg tablet [generic] 4 mg By Mouth Once daily For MUSCLE SPASMS 4 mg 2023 Active 2023 08910 43293 0 Once daily By Mouth False Tylenol 325 mg tablet 2 tabs By Mouth Every 4 hours as needed For Fever >100 DO NOT EXCEED 3000 MG APAP/24 Hours 2 tabs 12/20 Inactiv e 2023 71587 93177 0 Every 4 hours as needed By Mouth False Dulcolax (bisacodyl) 10 mg rectal suppository Daily as needed For Constipation 1 sup 12/20 Inactiv e 2023 63668 14120 1 Daily as needed Rectal False Fleet Enema 19 gram-7 gram/118 mL 1 Rectal Daily as neededFor Constipation 1 12/20 Inactiv e 2023 99315 02359 6 Daily as needed Rectal False Milk of Magnesia 400 mg/5 mL oral suspension [Magnesium hydroxide] PRN 30ml By Mouth Daily as needed for constipation one time daily if no BM, on day 4 of no BM (PRN refer to instructions) For Constipation For Constipatioin 30ml 12/20 Inactiv e 2023 50547 94467 6 1 time By Mouth False Melatonin 3 mg tablet [generic] 3 mg By Mouth Once daily As Needed For INSOMNIA 3 mg 12/20 Inactiv e 2023 33507 17100 8 Once daily By Mouth False Hydrocortis one 1 % topical cream [generic] 1 % Rectal Four times daily as needed For hemorroid pain 1 % 12/20 Inactiv e 2023 01700 60502 1 Four times daily as needed Rectal False X-STGH ANTACID 750MG CHEW TAKE (1) TABLET BY MOUTH THREE TIMES DAILY NEEDED FOR INDIGESTION 12/20 Inactiv e 2023 11704 74100 4 Three times daily as needed Saline Mist 0.65 % nasal spray aerosol 0.65 % Nares Four times daily as needed For DRYNESS 0.65 % 12/20 Inactiv e 2023 29923 19905 8 Four times daily as needed Nares False Vicks Vaporub 4.7 %-1.2 %-2.6 % topical ointment Apply topically to chest Three times daily as needed For CONGESTION 4.7-1.2 -2.6 12/20 Inactiv e 2023 20432 03609 1 Three times daily as needed Topica l False VITAMIN D3 2000U CAP TAKE ONE (1) CAPSULE BY MOUTH DAILY* DO NOT CRUSH, CHEW OR BREAK* For Supplement 1 capsule 12/19 Inactiv e 2023 19536 24292 0 Once daily By Mouth False Potassium chloride ER 20 mEq tablet,exte nded release(par t/cryst) [generic] TAKE (1) TABLET BY MOUTH THREE TIMES DAILY (MORNING, AFTERNOON, EVENING)*DO NOT CRUSH, CHEW, OR BREAK* For SUPPLEMENT 20 MEQ 06/11 Inactiv e 2023 18182 48014 5 3 times a day By Mouth False Aspirin 81 mg tablet,camron yed release [generic] TAKE ONE (1) TABLET BY MOUTH ONCE DAILY*DO NOT CRUSH, CHEW OR BREAK* For CAD 81 MG 12/22 Inactiv e 2023 59363 62601 0 Once daily By Mouth False Furosemide 20 mg tablet [generic] TAKE 1 AND 1/2 TABLETS (30MG) BY MOUTH ONCE DAILY For CHF 30mg 2023 Active 2023 91400 49454 1 Once daily By Mouth False Polyethylen e glycol 3350 17 gram/dose oral powder [generic] MIX 17 GRAMS (1 CAPFUL) IN 60Z OF LIQUID AND DRINK BY MOUTH ONCE DAILY *HOLD FOR LOOSE STOOLS* For constipation 17 g 2023 Active 2023 27141 99589 3 Once daily By Mouth False Vitamin D3 50 mcg (2,000 unit) capsule Once daily TAKE ONE (1) CAPSULE BY MOUTH DAILY* DO NOT CRUSH, CHEW OR BREAK* For Supplement 1 capsule 02/07 Inactiv e 2023 79400 97792 2 Once daily By Mouth False Fleet Enema 19 gram-7 gram/118 mL 1 Rectal Daily as neededFor Constipation 1 2023 0000 Active 2023 72101 03497 6 Daily as needed Rectal False Tums E-X 300 mg (as calcium carbonate 750 mg) chewable tablet 1 tab By Mouth TAKE (1) TABLET BY MOUTH THREE TIMES DAILY NEEDED FOR INDIGESTION 1 tab 202300 /0000 Active 2023 31660 89639 1 Three times daily as needed By Mouth False Tylenol 325 mg tablet 2 tabs By Mouth Every 4 hours as needed For Fever >100 DO NOT EXCEED 3000 MG APAP/24 Hours 2 tabs 202300 /0000 Active 2023 44623 12191 0 Every 4 hours as needed By Mouth False Vicks Vaporub 4.7 %-1.2 %-2.6 % topical ointment Apply topically to chest Three times daily as needed For CONGESTION topical 202300 Active 2023 83737 81081 1 Three times daily as needed Topica l False Tylenol 325 mg tablet 2 tabs By Mouth Every 4 hours as needed For DX- PAIN PRN FOR MILD PAIN, DO NOT EXCEED 3000MG APAP/24 HOURS 2 tabs 202300 Active 2023 55953 46743 0 Every 4 hours as needed By Mouth False Tramadol 50 mg tablet [generic] 1 tab By Mouth Every 4 hours as needed For DX- PAIN 5-10 1 tab 03/10 Inactiv e 2023 81538 20153 0 Every 4 hours as needed By Mouth False Saline Mist 0.65 % nasal spray aerosol 2 sprays Nares Four times daily as needed For DRYNESS 2 sprays 202300 / Active 2023 00590 17735 8 Four times daily as needed Nares False Dulcolax (bisacodyl) 10 mg rectal suppository Daily as needed For Constipation 1 sup 202300 / Active 2023 07669 42060 1 Daily as needed Rectal False Hydrocortis one-pramoxi ne 1 %-1 % rectal cream [generic] 1 mague Rectal Four times daily as needed For hemorroid pain 1 mague 202300 /0000 Active 2023 87554 78247 4 Four times daily as needed Rectal False Melatonin 3 mg tablet [generic] 1 tab By Mouth At bedtime as needed For INSOMNIA 1 tab 12/24 Inactiv e 2023 29917 65536 8 At bedtime as needed By Mouth False Milk of Magnesia 400 mg/5 mL oral suspension 30ml By Mouth Daily as needed Daily as needed for constipation one time daily if no BM, on day 4 of no BM (PRN refer to instructions) For Constipation For Constipatioin 30ml 2023 Active 2023 75592 02275 2 Daily as needed By Mouth False Baclofen 20 mg tablet [generic] 20 mg By Mouth 4 times a day For MUSCLE SPASMS 20 mg 2023 Active 2023 27410 16821 1 4 times a day By Mouth False Melatonin 3 mg tablet [generic] 1 tab By Mouth At bedtime as needed For INSOMNIA 1 tab 2023 Active 2023 96184 23325 8 At bedtime as needed By Mouth False Bactrim DS 800 mg-160 mg tablet 1 tab By Mouth Twice daily For URINARY TRACT INFECTION, SITE NOT SPECIFIED 1 tab 01/06 Inactiv e 2023 67990 05466 1 Twice daily By Mouth N39.0 False Cefdinir 300 mg capsule [generic] 300 mg By Mouth Twice daily For UTI 300 mg 01/07 Inactiv e 2023 43031 65501 0 Twice daily By Mouth False Cefdinir 300 mg capsule [generic] 300 mg By Mouth Twice daily For UTI 300 mg 01/17 Inactiv e 2023 58827 92806 0 Twice daily By Mouth False Zyrtec 10 mg tablet 10 mg By Mouth Once daily For sinus congestion 10 mg 01/22 Inactiv e 2023 21888 89593 0 Once daily By Mouth False Tobramycin 0.3 %-dexametha sone 0.1 % eye drops,suspe nsion [generic] 0.3-0.1 % Left Eye 4 times a day For eye infection 0.3-0.1 % 02/05 Inactiv e 2023 14586 92920 5 4 times a day Left Eye False Fluconazole 150 mg tablet [generic] 150 mg By Mouth 1 time For yeast infection 150 mg 02/15 Inactiv e 2023 10005 20264 2 1 time By Mouth False Tramadol 50 mg tablet [generic] 1 tab By Mouth Every 4 hours as needed For DX- PAIN 5-10 1 tab 2023 00/00 /0000 Active 2023 93221 41731 0 Every 4 hours as needed By Mouth False Tobramycin 0.3 %-dexametha sone 0.1 % eye drops,suspe nsion [generic] 1 drop Left Eye 4 times a day For Inflammation of left eye 1 drop 05/08 Inactiv e 2023 52962 77593 5 4 times a day Left Eye False Voltaren Arthritis Pain 1 % topical gel 2 gm Topical Twice daily to rigth shoulder for 2 weeks For pain 2 gm 05/08 Inactiv e 2023 61316 29131 1 Twice daily Topica l False Chlorthalid one 25 mg tablet [generic] 12.5mg By Mouth Once daily For HTN 12.5mg 05/06 Inactiv e 2023 92552 42077 0 Once daily By Mouth False Chlorthalid one 25 mg tablet [generic] 12.5mg By Mouth Once daily For HTN 12.5mg 05/07 Inactiv e 2023 97846 78735 0 Once daily By Mouth False Chlorthalid one 25 mg tablet [generic] 05/07 Inactiv e 2023 30035 87196 0 Chlorthalid one 25 mg tablet [generic] 12.5mg By Mouth Once daily For HTN 12.5mg 06/26 Inactiv e 2023 26584 84157 0 Once daily By Mouth False Norvasc 5 mg tablet 5mg By Mouth Once daily, hold medication if systolic is less than 90 For HYPERTENSIVE HEART DISEASE WITHOUT HEART FAILURE 5mg 06/03 Inactiv e 2023 08843 19635 1 Once daily By Mouth I11.9 False Norvasc 5 mg tablet 5mg By Mouth Once daily, hold medication if systolic is less than 90 For HYPERTENSIVE HEART DISEASE WITHOUT HEART FAILURE 5mg 06/03 Inactiv e 2023 47465 19729 1 Once daily By Mouth I11.9 False Norvasc 5 mg tablet 5mg By Mouth Once daily, hold medication if systolic is less than 90 For HYPERTENSIVE HEART DISEASE WITHOUT HEART FAILURE 5mg 06/26 Inactiv e 2023 85107 30020 1 Once daily By Mouth I11.9 False [...] 10 mg 2023 00/00 /0000 Active 2023 04427 93747 1 Once daily By Mouth False DISCONTINUE [...] CAD 81 mg 06/14 Inactiv e 2023 03667 81267 9 Once daily By Mouth False Aspirin 81 mg tablet,camron yed release [generic] 06/14 Inactiv e 2023 01541 97456 9 Aspirin 81 mg tablet,camron yed release [generic] 81 mg By Mouth Once daily Do not crush, chew, or break For CAD 81 mg 06/154 Inactiv e 2023 08280 98825 9 Once daily By Mouth False Cefpodoxime 200 mg tablet [generic] 200mg By Mouth Twice daily For UTI 200mg 07/04 Inactiv e 2023 08221 86396 0 Twice daily By Mouth False Calcium citrate 250 mg tablet [generic] 06/26 Inactiv e 2023 58696 08919 6 Calcium citrate 250 mg tablet [generic] Once daily TAKE 4 TABLETS (1000MG) BY MOUTH For SUPPLEMENT 500 MG 2023 Active 2023 00613 15154 6 Once daily By Mouth False Norvasc 5 mg tablet 7.5 mg By Mouth Once daily Hold medication if SBP <90 For HYPERTENSIVE HEART DISEASE WITHOUT HEART FAILURE 7.5 mg 06/30 Inactiv e 2023 11440 05573 1 Once daily By Mouth I11.9 False Norvasc 5 mg tablet 7.5 mg By Mouth Once daily Hold medication if SBP <90 For HYPERTENSIVE HEART DISEASE WITHOUT HEART FAILURE 7.5 mg 07/06 Inactiv e 2023 60747 63059 1 Once daily By Mouth I11.9 False Simethicone 125 mg capsule [generic] 2 capule By Mouth Twice daily as needed For bloating/gas pain 2 capule 2023 Active 2023 97015 44238 0 Twice daily as needed By Mouth False Cepacol Sore Throat (benzocaine -menthol) 15 mg-2.6 mg lozenges 2 lozenges By Mouth Every 6 hours as needed For sore throat 2 lozenge s 2023 Active 2023 75137 57287 6 Every 6 hours as needed By Mouth False Cefepime 1 gram solution for injection [generic] 1g Intramuscular Every 12 hours 1g intramuscular ly ever 12 hours For UTI 1g 07/06 Inactiv e 2023 82057 27110 4 Every 12 hours Intram uscula r False Cefepime 1 gram solution for injection [generic] 07/06 Inactiv e 2023 66067 16005 4 Cefepime 1 gram solution for injection [generic] 1g Intramuscular Every 12 hours 1g intramuscular ly ever 12 hours For UTI Reconstitute with 2.4 ML of NSS. 1g 07/08 Inactiv e 2023 99899 97442 4 Every 12 hours Intram uscula r False Norvasc 5 mg tablet 07/06 Inactiv e 2023 98288 12189 1 I11.9 Norvasc 5 mg tablet 7.5 mg By Mouth Once daily Hold medication if SBP <90 For HYPERTENSIVE HEART DISEASE WITHOUT HEART FAILURE 7.5 mg 07/18 Inactiv e 2023 85867 99462 1 Once daily By Mouth I11.9 False Cefepime 1 gram solution for injection [generic] 07/08 Inactiv e 2023 17714 57388 4 Cefepime 1 gram solution for injection [generic] 1g Intramuscular Every 12 hours 1g intramuscular ly ever 12 hours For UTI Reconstitute with 2.4 ML of NSS. 1g 07/08 Inactiv e 2023 18401 82345 4 Every 12 hours Intram uscula r False Cefepime 1 gram solution for injection [generic] 07/08 Inactiv e 2023 78565 91590 4 Cefepime 1 gram solution for injection [generic] 1g Intramuscular Every 12 hours 1g intramuscular ly ever 12 hours For UTI Reconstitute with 2.4 ML of NSS. 1g 07/11 Inactiv e 2023 38890 97550 4 Every 12 hours Intram uscula r False Fleet Enema 19 gram-7 gram/118 mL 1 Rectal 1 time For constipation 1 07/16 Inactiv e 2024 46827 99186 6 1 time Rectal False Fleet Enema 19 gram-7 gram/118 mL 1 Rectal 1 time For constipation 1 07/17 Inactiv e 2024 02304 19220 6 1 time Rectal False Norvasc 5 mg tablet 7.5 mg By Mouth Once daily For HYPERTENSIVE HEART DISEASE WITHOUT HEART FAILURE 7.5 mg 2024 Active 2024 71354 61233 1 Once daily By Mouth I11.9 False Potassium chloride ER 20 mEq tablet,exte nded release(par t/cryst) [generic] 40 mEq By Mouth 1 time For low potassium prior to surgery 40 mEq 07/18 Inactiv e 2024 12713 80882 1 1 time By Mouth False Potassium chloride ER 20 mEq tablet,exte nded release(par t/cryst) [generic] 40 mEq By Mouth 1 time For low potassium prior to surgery 40 mEq 07/19 Active 2024 13514 95145 1 1 time By Mouth False Nystatin 100,000 unit/gram topical cream [generic] 100,000 unit Topical As Needed For DX- EXCORIATION 100,000 unit 12/12 Inactiv e 2023 52736 01418 5 Topica l False Vicks Vaporub 4.7 %-1.2 %-2.6 % topical ointment 4.7-1.2-2.6 Topical 3 times a day As Needed For DX- CONGESTION 4.7-1.2 -2.6 12/12 Inactiv e 2023 54239 59759 1 3 times a day Topica l False Ketoconazol e 2 % shampoo [generic] APPLY SHAMPOO TOPICALLY TO SCALP DURING HAIR WASHINGDX: ELVIA DERM OF SCALP For DX- ELVIA DERM OF SCALP 12/12 Inactiv e 2023 79417 59892 4 Topica l False THERA SILICONE SKIN GUARD Topical Twice daily 1 APPLICATION TOPICALLY IN THE MORNING AND AT BEDTIME TO SCROTUM For DX- PREVENTION 2023 Active 2023 Twice daily Topica l False Selenium sulfide 2.5 % lotion [generic] 2.5 % Topical EVERY MONDAY, MONDAY AND MONDAY AFTER SHOWER For DANDRUFF 2.5 % 2023 Active 2023 60153 53358 4 3 times a week Topica l False Nystatin (bulk) 100 million unit powder [generic] 100 million Topical Twice daily as needed For EXOCORATION 100 million 12/20 Inactiv e 2023 09674 52408 1 Twice daily as needed Topica l False Ketoconazol e 2 % shampoo [generic] Once daily APPLY SHAMPOO TOPICALLY TO SCALP DURING HAIR WASHING ON SHOWER DAYS- LITTLE SAHA, SAT For ELVIA DERM OF SCAP 2 % 2023 Active 2023 12587 40523 4 Once daily Topica l False Nystatin 100,000 unit/gram topical cream [generic] 1 mague Topical Twice daily as needed For EXOCORATION 1 mague 06/05 Inactiv e 2023 72729 62263 5 Twice daily as needed Topica l False Nystatin 100,000 unit/gram topical powder [generic] 100,000 unit Topical Twice daily to scrotum with AM and PM care For Scrotal excoriation 100,000 unit 06/05 Inactiv e 2023 58876 93282 5 Twice daily Topica l False Problems [...] adjustment of urinary device 07/21/2023 Active Z79.01 [facility]DC (current) use of anticoagulants 07/21 Active N31.9 [...] Temperature SpO2 Blood Sugar Pulse Respirations 210 17026 6 80.00 mm[Hg] - Sitting 132.00 mm[Hg] - Sitting 97968 211 79599 5 78.00 mm[Hg] - Sitting 125.00 mm[Hg] - Sitting 14607 216 76879 1 254.10 NI 81273 216 28486 2 79.00 mm[Hg] - Sitting 157.00 mm[Hg] - Sitting 73 NI 254.10 NI 36.30 Tympanic 95.00 % 72.00/ min 16.00/min 55998 216 50172 4 98.80 Tympanic 47766 216 93745 2 78.00 mm[Hg] - Sitting 164.00 mm[Hg] - Sitting 49594 217 62197 3 98.20 Tympanic 41800 217 73353 5 73.00 mm[Hg] - Sitting 159.00 mm[Hg] - Sitting 83019 217 78150 9 98.40 Forehead Scan 31705 218 67311 3 97.90 Tympanic 50514 218 86973 5 77.00 mm[Hg] - Sitting 137.00 mm[Hg] - Sitting 72581 219 01147 0 97.70 Tympanic 80016 219 40252 6 97.60 Tympanic 10349 219 40738 4 76.00 mm[Hg] - Sitting 139.00 mm[Hg] - Sitting 66298 219 56578 4 97.80 Forehead Scan 00029 220 65012 9 97.90 Tympanic 52669 220 17596 9 76.00 mm[Hg] - Sitting 138.00 mm[Hg] - Sitting 42719 220 86286 6 98.10 Tympanic 37214 221 94345 5 67.00 mm[Hg] - Sitting 142.00 mm[Hg] - Sitting 01840 221 26581 8 98.20 Tympanic 72306 221 30644 0 98.30 Tympanic 82846 222 78085 7 98.20 Tympanic 54585 222 65882 8 97.90 Tympanic 40993 223 98179 3 98.20 Tympanic 67760 223 95071 3 98.00 Tympanic 84147 224 22375 0 59.00 mm[Hg] - Sitting 111.00 mm[Hg] - Sitting 98.40 Forehead Scan 95.00 % 56.00/ min 18.00/min 36816 224 15035 9 98.20 Forehead Scan 52464 224 66911 3 97.90 Tympanic 89756 225 75673 4 98.20 Tympanic 57445 225 25366 8 97.50 Forehead Scan 99233 228 00857 0 55.00 mm[Hg] - Sitting 118.00 mm[Hg] - Sitting 98.40 Tympanic 69.00/ min 82333 229 26303 8 78.00 mm[Hg] - Sitting 152.00 mm[Hg] - Sitting 97703 230 47928 0 62.00 mm[Hg] - Sitting 122.00 mm[Hg] - Sitting 85872 231 74890 7 72.00 mm[Hg] - Lying Down 140.00 mm[Hg] - Lying Down 86062 101 26206 3 97.70 Forehead Scan 12004 101 10699 1 254.10 NI 69.00/ min 83290 101 76521 9 72.00 mm[Hg] - Sitting 142.00 mm[Hg] - Sitting 97.70 Tympanic 18.00/min 37143 101 41713 3 72.00 mm[Hg] - Lying Down 142.00 mm[Hg] - Lying Down 79819 102 10748 8 68.00 mm[Hg] - Lying Down 152.00 mm[Hg] - Lying Down 96844 103 75396 5 74.00 mm[Hg] - Sitting 158.00 mm[Hg] - Sitting 36244 104 65908 9 78.00 mm[Hg] - Sitting 144.00 mm[Hg] - Sitting 41269 105 70648 5 68.00 mm[Hg] - Sitting 138.00 mm[Hg] - Sitting 44469 106 91682 1 70.00 mm[Hg] - Sitting 138.00 mm[Hg] - Sitting 57721 107 08164 1 67.00 mm[Hg] - Sitting 142.00 mm[Hg] - Sitting 20010 108 34742 0 74.00 mm[Hg] - Sitting 143.00 mm[Hg] [...]
--- OUTSIDE RECORDS SUMMARY | 2024-07-26 11:18 | External Medical Summary | Continuity Of Care Document ---
Author Name Unknown Address [address] [place] [address] Organization [facility] () Care Team Providers Care Billing Clerk Name Role Phone DO Pritchett Amy Primary Care Provider [phone] Allergies Allergy Reaction Start Date End Date Status AMINOGLYCOSIDES Active CIPRO Active GENTAMICIN Active NSAIDS (NON-STEROIDAL ANTI-INFLAMMATORY DRUG) 0 Active IBUPROFEN Active QUINOLONES Active VALIUM Active Medications Medication Instructions Dosage Start Date End Date Status Order Date Drug Code Frequency Route of Admin Diagnosis Code Substitutions Allowed Spikevax 8214-1273(1 2y up)(PF) 50 mcg/0.5 mL intramuscul ar suspension [COVID smd47-01(12 up)(andu)(P F)] 0.5mL Intramuscular 1 time Monitory 15 Minutes post injection for adverse effects; record site/temp For COVID 19 PREVENTION 0.5mL 01/02 Inactiv e 2023 21415 96891 4 1 time Intram uscula r False [facility] - Nurse initials indicate verificatio n that [id number] vaccine was administere d by [facility] jon 1 Intramuscular 1 time ( Indicate vaccine type) For vaccine 1 05/03 Inactiv e 2023 1 time Intram uscula r False Lisinopril 40 mg tablet [generic] TAKE ONE (1) TABLET BY MOUTH IN THE MORNING. For DX- HTN 1 2023 Active 2023 53116 85143 1 Once daily By Mouth False Tizanidine 2 mg tablet [generic] TAKE ONE (1) TABLET BY MOUTH ONCE DAILY For MUSCLE SPASM 1 2023 Active 2023 61202 93594 0 Once daily By Mouth M62.838 False Tamsulosin 0.4 mg capsule [generic] TAKE (1) CAPSULE BY MOUTH AT BEDTIME For SPASMS 1 2023 Active 2023 19965 86272 0 Once daily By Mouth False Aspirin 81 mg tablet Once daily 1 TABLET BY MOUTH IN THE MORNING For DX- CAD DO NOT CRUSH, CHEW OR BREAK 81 mg 06/12 Inactiv e 2023 Once daily By Mouth False Baclofen 20 mg tablet [generic] 20 mg By Mouth 4 times a day For DX- MUSCLE SPASMS 20 mg 12/12 Inactiv e 2023 87641 01339 1 4 times a day By Mouth False Calcium citrate 250 mg tablet Once daily 4 TABLET BY MOUTH For DX- SUPPLEMENT 250 mg calci 12/12 Inactiv e 2023 Once daily By Mouth False Co Q-10 100 mg capsule 100 mg By Mouth Once daily For DX- SUPPLEMENT 100 mg 06/20 Inactiv e 2023 15272 34173 5 Once daily By Mouth False Furosemide 20 mg tablet [generic] 20 mg By Mouth Once daily For DX-CHF 20 mg 12/12 Inactiv e 2023 86147 24894 0 Once daily By Mouth False Gabapentin 300 mg capsule [generic] 300 mg By Mouth 3 times a day For DX- NEUROPATHY 300 mg 12/12 Inactiv e 2023 42749 56488 4 3 times a day By Mouth False Loratadine 10 mg tablet [generic] 10 mg By Mouth Once daily For DX- ALLERGIES 10 mg 2023 Active 2023 19895 35569 1 Once daily By Mouth False Miralax 17 gram/dose oral powder 17 gram/dose By Mouth IN THE MORNING Mix 1 TABLESPOON IN 8 OZ OF FLUID HOLD FOR LOOSE STOOLS For DX- CONSTIPATION 17 gram/do se 12/12 Inactiv e 2023 48210 65176 0 Once daily By Mouth False Paroxetine 30 mg tablet [generic] 30 mg By Mouth Once daily For DX- DEPRESSION 30 mg 2023 00/00 /0000 Active 2023 16223 50666 3 Once daily By Mouth False Potassium citrate ER 15 mEq (1,620 mg) tablet,exte nded release [generic] 15 mEq By Mouth 3 times a day For DX- SUPPLEMENT/DI URETIC USE/ HYPOCITRAUIRA DO NOT CRUSH 15 mEq 12/12 Inactiv e 2023 68595 20364 1 3 times a day By Mouth [...] For DX- DANDRUFF 12/12 Inactiv e 2023 24175 19259 4 3 times a week Topica l False Acetaminoph en 325 mg tablet [generic] TAKE 2 TABS (650MG) BY MOUTH EVERY 4 HOURS NEEDED FOR TEMP >100 NOT TO EXCEED 3GM/24HRS TAKE 2 TABS (650MG) BY MOUTH EVERY 4 HOURS NEEDED FOR TEMP >100 NOT TO EXCEED 3GM/24HRS For DX-FEVER 2 12/12 Inactiv e 2023 16635 02928 0 By Mouth False MILK OF MAGNESIA ADMINISTER 30 ML BY MOUTH ONCE DAILY NEEDED FOR CONSTIPATION X3 DAYS WITH NO BM. For DX- CONSTIPATION 30ML 12/12 Inactiv e 2023 02511 25031 9 By Mouth False Enema Disposable 19 gram-7 gram/118 mL ADMINISTER ONE ENEMA RECTALLY ONCE DAILY NEEDED FOR CONSTIPATION ON DAY 6 OF NO BM For DX- CONSTIPATION 12/12 Inactiv e 2023 57914 31287 1 Rectal False TUMS EXTRA STR 750MG TAKE (1) TABLET BY MOUTH THREE TIMES DAILY NEEDED FOR INDIGESTION For DX- INDIGESTION 1 12/12 Inactiv e 2023 80306 62593 8 By Mouth False Vitamin D3 25 [...] CONSTIPATION 10 mg 12/12 Inactiv e 2023 69959 63427 1 Rectal False Melatonin 3 mg tablet [generic] 3 mg By Mouth As Needed For DX-INSOMMIA 3 mg 12/12 Inactiv e 2023 52681 75373 8 By Mouth False Hydrocortis one 1 % topical cream [generic] 1 % Topical As Needed For DX- PAIN 1 % 12/12 Inactiv e 2023 15836 54541 1 Topica l False HYDROCORTIS ONE/PARMOXI NE [...] 5-10 50 mg 12/20 Inactiv e 2023 82931 15773 0 Every 4 hours as needed By Mouth False Tylenol 325 mg tablet 325 mg By Mouth Every 4 hours as needed For DX- PAIN PRN FOR MILD PAIN, DO NOT EXCEED 3000MG APAP/24 HOURS 325 mg 12/20 Inactiv e 2023 49420 23821 0 Every 4 hours as needed By Mouth False Baclofen 20 mg tablet [generic] 20 mg By Mouth 4 times a day For MUSCLE SPASMS 20 mg 12/20 Inactiv e 2023 08266 83927 1 4 times a day By Mouth False Calcium citrate 250 mg tablet [generic] Once daily TAKE 4 TABLETS (1000MG) BY MOUTH For SUPPLEMENT 1000 MG 06/26 Inactiv e 2023 79082 29788 6 Once daily By Mouth False Dulcolax (bisacodyl) 10 mg rectal suppository 10 mg Rectal Once daily For CONSTIPATION *MAY HOLD FOR LOOSE STOOLS* 10 mg 2023 Active 2023 64294 78378 1 Once daily Rectal False Gabapentin 300 mg capsule [generic] 300 mg By Mouth 3 times a day For NEUROPATHY 300 mg 2023 Active 2023 34666 02991 4 3 times a day By Mouth False Potassium citrate ER 15 mEq (1,620 mg) tablet,exte nded release [generic] 15 mEq By Mouth 3 times a day For SUPPLEMENT/DI URETIC USE/HYPOCITRA URIA 15 mEq 06/11 Inactiv e 2023 81569 75949 1 3 times a day By Mouth False Potassium chloride ER 20 mEq tablet,exte nded release [generic] 20 mEq By Mouth 3 times a day *DO NOT CRUSH, CHEW OR BREAK* For SUPPLEMENT 20 mEq 12/18 Inactiv e 2023 96320 41220 1 3 times a day By Mouth False Tizanidine 4 mg tablet [generic] 4 mg By Mouth Once daily For MUSCLE SPASMS 4 mg 2023 Active 2023 23274 32664 0 Once daily By Mouth False Tylenol 325 mg tablet 2 tabs By Mouth Every 4 hours as needed For Fever >100 DO NOT EXCEED 3000 MG APAP/24 Hours 2 tabs 12/20 Inactiv e 2023 67707 02944 0 Every 4 hours as needed By Mouth False Dulcolax (bisacodyl) 10 mg rectal suppository Daily as needed For Constipation 1 sup 12/20 Inactiv e 2023 94273 88875 1 Daily as needed Rectal False Fleet Enema 19 gram-7 gram/118 mL 1 Rectal Daily as neededFor Constipation 1 12/20 Inactiv e 2023 57992 85498 6 Daily as needed Rectal False Milk of Magnesia 400 mg/5 mL oral suspension [Magnesium hydroxide] PRN 30ml By Mouth Daily as needed for constipation one time daily if no BM, on day 4 of no BM (PRN refer to instructions) For Constipation For Constipatioin 30ml 12/20 Inactiv e 2023 24497 82912 6 1 time By Mouth False Melatonin 3 mg tablet [generic] 3 mg By Mouth Once daily As Needed For INSOMNIA 3 mg 12/20 Inactiv e 2023 26159 13205 8 Once daily By Mouth False Hydrocortis one 1 % topical cream [generic] 1 % Rectal Four times daily as needed For hemorroid pain 1 % 12/20 Inactiv e 2023 32762 33086 1 Four times daily as needed Rectal False X-STGH ANTACID 750MG CHEW TAKE (1) TABLET BY MOUTH THREE TIMES DAILY NEEDED FOR INDIGESTION 12/20 Inactiv e 2023 50103 37162 4 Three times daily as needed Saline Mist 0.65 % nasal spray aerosol 0.65 % Nares Four times daily as needed For DRYNESS 0.65 % 12/20 Inactiv e 2023 55702 56196 8 Four times daily as needed Nares False Vicks Vaporub 4.7 %-1.2 %-2.6 % topical ointment Apply topically to chest Three times daily as needed For CONGESTION 4.7-1.2 -2.6 12/20 Inactiv e 2023 20289 69562 1 Three times daily as needed Topica l False VITAMIN D3 2000U CAP TAKE ONE (1) CAPSULE BY MOUTH DAILY* DO NOT CRUSH, CHEW OR BREAK* For Supplement 1 capsule 12/19 Inactiv e 2023 26114 89031 0 Once daily By Mouth False Potassium chloride ER 20 mEq tablet,exte nded release(par t/cryst) [generic] TAKE (1) TABLET BY MOUTH THREE TIMES DAILY (MORNING, AFTERNOON, EVENING)*DO NOT CRUSH, CHEW, OR BREAK* For SUPPLEMENT 20 MEQ 06/11 Inactiv e 2023 05623 40225 5 3 times a day By Mouth False Aspirin 81 mg tablet,camron yed release [generic] TAKE ONE (1) TABLET BY MOUTH ONCE DAILY*DO NOT CRUSH, CHEW OR BREAK* For CAD 81 MG 12/22 Inactiv e 2023 90619 07922 0 Once daily By Mouth False Furosemide 20 mg tablet [generic] TAKE 1 AND 1/2 TABLETS (30MG) BY MOUTH ONCE DAILY For CHF 30mg 2023 Active 2023 82542 92651 1 Once daily By Mouth False Polyethylen e glycol 3350 17 gram/dose oral powder [generic] MIX 17 GRAMS (1 CAPFUL) IN 60Z OF LIQUID AND DRINK BY MOUTH ONCE DAILY *HOLD FOR LOOSE STOOLS* For constipation 17 g 2023 Active 2023 05503 99007 3 Once daily By Mouth False Vitamin D3 50 mcg (2,000 unit) capsule Once daily TAKE ONE (1) CAPSULE BY MOUTH DAILY* DO NOT CRUSH, CHEW OR BREAK* For Supplement 1 capsule 02/07 Inactiv e 2023 08822 06160 2 Once daily By Mouth False Fleet Enema 19 gram-7 gram/118 mL 1 Rectal Daily as neededFor Constipation 1 2023 0000 Active 2023 34876 81333 6 Daily as needed Rectal False Tums E-X 300 mg (as calcium carbonate 750 mg) chewable tablet 1 tab By Mouth TAKE (1) TABLET BY MOUTH THREE TIMES DAILY NEEDED FOR INDIGESTION 1 tab 202300 /0000 Active 2023 11820 35023 1 Three times daily as needed By Mouth False Tylenol 325 mg tablet 2 tabs By Mouth Every 4 hours as needed For Fever >100 DO NOT EXCEED 3000 MG APAP/24 Hours 2 tabs 202300 /0000 Active 2023 39037 19130 0 Every 4 hours as needed By Mouth False Vicks Vaporub 4.7 %-1.2 %-2.6 % topical ointment Apply topically to chest Three times daily as needed For CONGESTION topical 202300 Active 2023 27135 57140 1 Three times daily as needed Topica l False Tylenol 325 mg tablet 2 tabs By Mouth Every 4 hours as needed For DX- PAIN PRN FOR MILD PAIN, DO NOT EXCEED 3000MG APAP/24 HOURS 2 tabs 202300 Active 2023 79508 25342 0 Every 4 hours as needed By Mouth False Tramadol 50 mg tablet [generic] 1 tab By Mouth Every 4 hours as needed For DX- PAIN 5-10 1 tab 03/10 Inactiv e 2023 36403 87257 0 Every 4 hours as needed By Mouth False Saline Mist 0.65 % nasal spray aerosol 2 sprays Nares Four times daily as needed For DRYNESS 2 sprays 202300 / Active 2023 69875 10651 8 Four times daily as needed Nares False Dulcolax (bisacodyl) 10 mg rectal suppository Daily as needed For Constipation 1 sup 202300 / Active 2023 26792 68823 1 Daily as needed Rectal False Hydrocortis one-pramoxi ne 1 %-1 % rectal cream [generic] 1 mague Rectal Four times daily as needed For hemorroid pain 1 mague 202300 /0000 Active 2023 99762 52902 4 Four times daily as needed Rectal False Melatonin 3 mg tablet [generic] 1 tab By Mouth At bedtime as needed For INSOMNIA 1 tab 12/24 Inactiv e 2023 20965 03527 8 At bedtime as needed By Mouth False Milk of Magnesia 400 mg/5 mL oral suspension 30ml By Mouth Daily as needed Daily as needed for constipation one time daily if no BM, on day 4 of no BM (PRN refer to instructions) For Constipation For Constipatioin 30ml 2023 Active 2023 09138 16327 2 Daily as needed By Mouth False Baclofen 20 mg tablet [generic] 20 mg By Mouth 4 times a day For MUSCLE SPASMS 20 mg 2023 Active 2023 46943 97688 1 4 times a day By Mouth False Melatonin 3 mg tablet [generic] 1 tab By Mouth At bedtime as needed For INSOMNIA 1 tab 2023 Active 2023 17220 85871 8 At bedtime as needed By Mouth False Bactrim DS 800 mg-160 mg tablet 1 tab By Mouth Twice daily For URINARY TRACT INFECTION, SITE NOT SPECIFIED 1 tab 01/06 Inactiv e 2023 36886 70682 1 Twice daily By Mouth N39.0 False Cefdinir 300 mg capsule [generic] 300 mg By Mouth Twice daily For UTI 300 mg 01/07 Inactiv e 2023 63381 62523 0 Twice daily By Mouth False Cefdinir 300 mg capsule [generic] 300 mg By Mouth Twice daily For UTI 300 mg 01/17 Inactiv e 2023 70475 09132 0 Twice daily By Mouth False Zyrtec 10 mg tablet 10 mg By Mouth Once daily For sinus congestion 10 mg 01/22 Inactiv e 2023 57487 12540 0 Once daily By Mouth False Tobramycin 0.3 %-dexametha sone 0.1 % eye drops,suspe nsion [generic] 0.3-0.1 % Left Eye 4 times a day For eye infection 0.3-0.1 % 02/05 Inactiv e 2023 35762 91273 5 4 times a day Left Eye False Fluconazole 150 mg tablet [generic] 150 mg By Mouth 1 time For yeast infection 150 mg 02/15 Inactiv e 2023 53462 23075 2 1 time By Mouth False Tramadol 50 mg tablet [generic] 1 tab By Mouth Every 4 hours as needed For DX- PAIN 5-10 1 tab 2023 00/00 /0000 Active 2023 13464 08331 0 Every 4 hours as needed By Mouth False Tobramycin 0.3 %-dexametha sone 0.1 % eye drops,suspe nsion [generic] 1 drop Left Eye 4 times a day For Inflammation of left eye 1 drop 05/08 Inactiv e 2023 31671 83803 5 4 times a day Left Eye False Voltaren Arthritis Pain 1 % topical gel 2 gm Topical Twice daily to rigth shoulder for 2 weeks For pain 2 gm 05/08 Inactiv e 2023 48890 53091 1 Twice daily Topica l False Chlorthalid one 25 mg tablet [generic] 12.5mg By Mouth Once daily For HTN 12.5mg 05/06 Inactiv e 2023 46648 50123 0 Once daily By Mouth False Chlorthalid one 25 mg tablet [generic] 12.5mg By Mouth Once daily For HTN 12.5mg 05/07 Inactiv e 2023 45050 29448 0 Once daily By Mouth False Chlorthalid one 25 mg tablet [generic] 05/07 Inactiv e 2023 19411 29616 0 Chlorthalid one 25 mg tablet [generic] 12.5mg By Mouth Once daily For HTN 12.5mg 06/26 Inactiv e 2023 33624 00450 0 Once daily By Mouth False Norvasc 5 mg tablet 5mg By Mouth Once daily, hold medication if systolic is less than 90 For HYPERTENSIVE HEART DISEASE WITHOUT HEART FAILURE 5mg 06/03 Inactiv e 2023 80782 02946 1 Once daily By Mouth I11.9 False Norvasc 5 mg tablet 5mg By Mouth Once daily, hold medication if systolic is less than 90 For HYPERTENSIVE HEART DISEASE WITHOUT HEART FAILURE 5mg 06/03 Inactiv e 2023 19790 19321 1 Once daily By Mouth I11.9 False Norvasc 5 mg tablet 5mg By Mouth Once daily, hold medication if systolic is less than 90 For HYPERTENSIVE HEART DISEASE WITHOUT HEART FAILURE 5mg 06/26 Inactiv e 2023 10527 31915 1 Once daily By Mouth I11.9 False [...] 10 mg 2023 00/00 /0000 Active 2023 35381 29404 1 Once daily By Mouth False DISCONTINUE [...] CAD 81 mg 06/14 Inactiv e 2023 94269 48528 9 Once daily By Mouth False Aspirin 81 mg tablet,camron yed release [generic] 06/14 Inactiv e 2023 87813 31443 9 Aspirin 81 mg tablet,camron yed release [generic] 81 mg By Mouth Once daily Do not crush, chew, or break For CAD 81 mg 06/154 Inactiv e 2023 95350 46593 9 Once daily By Mouth False Cefpodoxime 200 mg tablet [generic] 200mg By Mouth Twice daily For UTI 200mg 07/04 Inactiv e 2023 84138 01225 0 Twice daily By Mouth False Calcium citrate 250 mg tablet [generic] 06/26 Inactiv e 2023 28600 82147 6 Calcium citrate 250 mg tablet [generic] Once daily TAKE 4 TABLETS (1000MG) BY MOUTH For SUPPLEMENT 500 MG 2023 Active 2023 08057 51241 6 Once daily By Mouth False Norvasc 5 mg tablet 7.5 mg By Mouth Once daily Hold medication if SBP <90 For HYPERTENSIVE HEART DISEASE WITHOUT HEART FAILURE 7.5 mg 06/30 Inactiv e 2023 92820 22398 1 Once daily By Mouth I11.9 False Norvasc 5 mg tablet 7.5 mg By Mouth Once daily Hold medication if SBP <90 For HYPERTENSIVE HEART DISEASE WITHOUT HEART FAILURE 7.5 mg 07/06 Inactiv e 2023 31985 49941 1 Once daily By Mouth I11.9 False Simethicone 125 mg capsule [generic] 2 capule By Mouth Twice daily as needed For bloating/gas pain 2 capule 2023 Active 2023 76443 16917 0 Twice daily as needed By Mouth False Cepacol Sore Throat (benzocaine -menthol) 15 mg-2.6 mg lozenges 2 lozenges By Mouth Every 6 hours as needed For sore throat 2 lozenge s 2023 Active 2023 07026 35195 6 Every 6 hours as needed By Mouth False Cefepime 1 gram solution for injection [generic] 1g Intramuscular Every 12 hours 1g intramuscular ly ever 12 hours For UTI 1g 07/06 Inactiv e 2023 42486 98313 4 Every 12 hours Intram uscula r False Cefepime 1 gram solution for injection [generic] 07/06 Inactiv e 2023 10850 07012 4 Cefepime 1 gram solution for injection [generic] 1g Intramuscular Every 12 hours 1g intramuscular ly ever 12 hours For UTI Reconstitute with 2.4 ML of NSS. 1g 07/08 Inactiv e 2023 96454 63303 4 Every 12 hours Intram uscula r False Norvasc 5 mg tablet 07/06 Inactiv e 2023 25071 29252 1 I11.9 Norvasc 5 mg tablet 7.5 mg By Mouth Once daily Hold medication if SBP <90 For HYPERTENSIVE HEART DISEASE WITHOUT HEART FAILURE 7.5 mg 07/18 Inactiv e 2023 85079 70558 1 Once daily By Mouth I11.9 False Cefepime 1 gram solution for injection [generic] 07/08 Inactiv e 2023 54954 02734 4 Cefepime 1 gram solution for injection [generic] 1g Intramuscular Every 12 hours 1g intramuscular ly ever 12 hours For UTI Reconstitute with 2.4 ML of NSS. 1g 07/08 Inactiv e 2023 56786 29891 4 Every 12 hours Intram uscula r False Cefepime 1 gram solution for injection [generic] 07/08 Inactiv e 2023 31399 20994 4 Cefepime 1 gram solution for injection [generic] 1g Intramuscular Every 12 hours 1g intramuscular ly ever 12 hours For UTI Reconstitute with 2.4 ML of NSS. 1g 07/11 Inactiv e 2023 35137 04666 4 Every 12 hours Intram uscula r False Fleet Enema 19 gram-7 gram/118 mL 1 Rectal 1 time For constipation 1 07/16 Inactiv e 2024 84779 76858 6 1 time Rectal False Fleet Enema 19 gram-7 gram/118 mL 1 Rectal 1 time For constipation 1 07/17 Inactiv e 2024 73851 17712 6 1 time Rectal False Norvasc 5 mg tablet 7.5 mg By Mouth Once daily For HYPERTENSIVE HEART DISEASE WITHOUT HEART FAILURE 7.5 mg 2024 0000 /0000 Active 2024 77696 77035 1 Once daily By Mouth I11.9 False Potassium chloride ER 20 mEq tablet,exte nded release(par t/cryst) [generic] 40 mEq By Mouth 1 time For low potassium prior to surgery 40 mEq 07/18 Inactiv e 2024 99664 56196 1 1 time By Mouth False Potassium chloride ER 20 mEq tablet,exte nded release(par t/cryst) [generic] 40 mEq By Mouth 1 time For low potassium prior to surgery 40 mEq 07/18 Inactiv e 2024 41614 32070 1 1 time By Mouth False Potassium chloride ER 20 mEq tablet,exte nded release(par t/cryst) [generic] 40 mEq By Mouth 1 time For low potassium 40 mEq 07/18 Inactiv e 2024 02366 17882 1 1 time By Mouth False Potassium chloride ER 20 mEq tablet,exte nded release(par t/cryst) [generic] 40 mEq By Mouth 1 time For low potassium 40 mEq 07/18 Inactiv e 2024 80870 70719 1 1 time By Mouth False Potassium chloride ER 20 mEq tablet,exte nded release [generic] 2 By Mouth 1 time For low potassium 2 07/19 Active 2024 19899 24077 1 1 time By Mouth False Potassium chloride ER 20 mEq tablet,exte nded release [generic] 2 capsules capsules By Mouth 1 time Please send capsule (2 capsules) For low potassium 2 capsule s 07/20 Active 2024 48242 57463 1 1 time By Mouth False Nystatin 100,000 unit/gram topical cream [generic] 100,000 unit Topical As Needed For DX- EXCORIATION 100,000 unit 12/12 Inactiv e 2023 33661 84205 5 Topica l False Vicks Vaporub 4.7 %-1.2 %-2.6 % topical ointment 4.7-1.2-2.6 Topical 3 times a day As Needed For DX- CONGESTION 4.7-1.2 -2.6 12/12 Inactiv e 2023 56989 24024 1 3 times a day Topica l False Ketoconazol e 2 % shampoo [generic] APPLY SHAMPOO TOPICALLY TO SCALP DURING HAIR WASHINGDX: ELVIA DERM OF SCALP For DX- ELVIA DERM OF SCALP 12/12 Inactiv e 2023 32261 29409 4 Topica l False THERA SILICONE SKIN GUARD Topical Twice daily 1 APPLICATION TOPICALLY IN THE MORNING AND AT BEDTIME TO SCROTUM For DX- PREVENTION 2023 0000 0000 Active 2023 Twice daily Topica l False Selenium sulfide 2.5 % lotion [generic] 2.5 % Topical EVERY MONDAY, MONDAY AND MONDAY AFTER SHOWER For DANDRUFF 2.5 % 2023 0000 /0000 Active 2023 55256 09948 4 3 times a week Topica l False Nystatin (bulk) 100 million unit powder [generic] 100 million Topical Twice daily as needed For EXOCORATION 100 million 12/20 Inactiv e 2023 26777 49018 1 Twice daily as needed Topica l False Ketoconazol e 2 % shampoo [generic] Once daily APPLY SHAMPOO TOPICALLY TO SCALP DURING HAIR WASHING ON SHOWER DAYS- , , MON For ELVIA DERM OF SCAP 2 % 2023 0000 /0000 Active 2023 07158 60097 4 Once daily Topica l False Nystatin 100,000 unit/gram topical cream [generic] 1 mague Topical Twice daily as needed For EXOCORATION 1 mague 06/05 Inactiv e 2023 37397 70446 5 Twice daily as needed Topica l False Nystatin 100,000 unit/gram topical powder [generic] 100,000 unit Topical Twice daily to scrotum with AM and PM care For Scrotal excoriation 100,000 unit 06/05 Inactiv e 2023 50157 66021 5 Twice daily Topica l False Problems [...] adjustment of urinary device 07/21/2023 Active Z79.01 snf (current) use of anticoagulants 07/21 Active N31.9 [...] weight Temperature SpO2 Blood Sugar Pulse Respirations 38045 210 39630 6 80.00 mm[Hg] - Sitting 132.00 mm[Hg] - Sitting 90501 211 29689 5 78.00 mm[Hg] - Sitting 125.00 mm[Hg] - Sitting 90133 216 60712 1 254.10 [place] 27228 216 82542 2 79.00 mm[Hg] - Sitting 157.00 mm[Hg] - Sitting 73 NI 254.10 NI 36.30 Tympanic 95.00 % 72.00/ min 16.00/min 92996 216 33075 4 98.80 Tympanic 95355 216 42960 2 78.00 mm[Hg] - Sitting 164.00 mm[Hg] - Sitting 54280 217 76370 3 98.20 Tympanic 98844 217 29855 5 73.00 mm[Hg] - Sitting 159.00 mm[Hg] - Sitting 59127 217 95821 9 98.40 Forehead Scan 53443 218 81084 3 97.90 Tympanic 60039 218 78414 5 77.00 mm[Hg] - Sitting 137.00 mm[Hg] - Sitting 43315 219 53334 0 97.70 Tympanic 39788 219 61692 6 97.60 Tympanic 17137 219 08984 4 76.00 mm[Hg] - Sitting 139.00 mm[Hg] - Sitting 52942 219 15216 4 97.80 Forehead Scan 84148 220 80900 9 97.90 Tympanic 54693 220 32516 9 76.00 mm[Hg] - Sitting 138.00 mm[Hg] - Sitting 68880 220 91927 6 98.10 Tympanic 42874 221 46377 5 67.00 mm[Hg] - Sitting 142.00 mm[Hg] - Sitting 28649 221 55276 8 98.20 Tympanic 81296 221 34559 0 98.30 Tympanic 01229 222 78402 7 98.20 Tympanic 98411 222 49451 8 97.90 Tympanic 95268 223 25535 3 98.20 Tympanic 71432 223 23471 3 98.00 Tympanic 77689 224 82574 0 59.00 mm[Hg] - Sitting 111.00 mm[Hg] - Sitting 98.40 Forehead Scan 95.00 % 56.00/ min 18.00/min 54506 224 37171 9 98.20 Forehead Scan 45383 224 73779 3 97.90 Tympanic 61339 225 91022 4 98.20 Tympanic 43070 225 08556 8 97.50 Forehead Scan 49066 228 51331 0 55.00 mm[Hg] - Sitting 118.00 mm[Hg] - Sitting 98.40 Tympanic 69.00/ min 52892 229 86729 8 78.00 mm[Hg] - Sitting 152.00 mm[Hg] - Sitting 24908 230 47656 0 62.00 mm[Hg] - Sitting 122.00 mm[Hg] - Sitting 13035 231 92820 7 72.00 mm[Hg] - Lying Down 140.00 mm[Hg] - Lying Down 64933 101 98330 3 97.70 Forehead Scan 84239 101 26078 1 254.10 NI 69.00/ min 21368 101 57474 9 72.00 mm[Hg] - Sitting 142.00 mm[Hg] - Sitting 97.70 Tympanic 18.00/min 45398 101 90598 3 72.00 mm[Hg] - Lying Down 142.00 mm[Hg] - Lying Down 00410 102 19066 8 68.00 mm[Hg] - Lying Down 152.00 mm[Hg] - Lying Down 84799 103 03930 5 74.00 mm[Hg] - Sitting 158.00 mm[Hg] - Sitting 31205 104 18344 9 78.00 mm[Hg] - Sitting 144.00 mm[Hg] - Sitting 88747 105 90013 5 68.00 mm[Hg] - Sitting 138.00 mm[Hg] - Sitting 78494 106 70166 1 70.00 mm[Hg] - Sitting 138.00 mm[Hg] - Sitting 49633 107 61483 1 67.00 mm[Hg] - Sitting 142.00 mm[Hg] - Sitting 31121 108 52788 0 74.00 mm[Hg] - Sitting 143.00 mm[Hg] [...]
--- OUTSIDE RECORDS SUMMARY | 2024-07-26 11:18 | External Medical Summary | Continuity Of Care Document ---
Author Name Unknown Address [address] [place] [address] Organization [facility] () Care Team Providers Care Materials Planning Manager Name Role Phone DO Pritchett Amy Primary Care Provider [phone] Allergies Allergy Reaction Start Date End Date Status AMINOGLYCOSIDES Active CIPRO Active GENTAMICIN Active NSAIDS (NON-STEROIDAL ANTI-INFLAMMATORY DRUG) 0 Active IBUPROFEN Active QUINOLONES Active VALIUM Active Medications Medication Instructions Dosage Start Date End Date Status Order Date Drug Code Frequency Route of Admin Diagnosis Code Substitutions Allowed Spikevax 5199-0280(1 2y up)(PF) 50 mcg/0.5 mL intramuscul ar suspension [COVID [id number](12 up)(andu)(P F)] 0.5mL Intramuscular 1 time Monitory 15 Minutes post injection for adverse effects; record site/temp For COVID 19 PREVENTION 0.5mL 01/02 Inactiv e 2023 30634 35656 4 1 time Intram uscula r False [facility] - Nurse initials indicate verificatio n that [id number] vaccine was administere d by [facility] jon 1 Intramuscular 1 time ( Indicate vaccine type) For vaccine 1 05/03 Inactiv e 2023 1 time Intram uscula r False Lisinopril 40 mg tablet [generic] TAKE ONE (1) TABLET BY MOUTH IN THE MORNING. For DX- HTN 1 2023 Active 2023 39926 54427 1 Once daily By Mouth False Tizanidine 2 mg tablet [generic] TAKE ONE (1) TABLET BY MOUTH ONCE DAILY For MUSCLE SPASM 1 2023 Active 2023 19977 60253 0 Once daily By Mouth M62.838 False Tamsulosin 0.4 mg capsule [generic] TAKE (1) CAPSULE BY MOUTH AT BEDTIME For SPASMS 1 2023 Active 2023 93313 44966 0 Once daily By Mouth False Aspirin 81 mg tablet Once daily 1 TABLET BY MOUTH IN THE MORNING For DX- CAD DO NOT CRUSH, CHEW OR BREAK 81 mg 06/12 Inactiv e 2023 Once daily By Mouth False Baclofen 20 mg tablet [generic] 20 mg By Mouth 4 times a day For DX- MUSCLE SPASMS 20 mg 12/12 Inactiv e 2023 17308 90651 1 4 times a day By Mouth False Calcium citrate 250 mg tablet Once daily 4 TABLET BY MOUTH For DX- SUPPLEMENT 250 mg calci 12/12 Inactiv e 2023 Once daily By Mouth False Co Q-10 100 mg capsule 100 mg By Mouth Once daily For DX- SUPPLEMENT 100 mg 06/20 Inactiv e 2023 77703 48154 5 Once daily By Mouth False Furosemide 20 mg tablet [generic] 20 mg By Mouth Once daily For DX-CHF 20 mg 12/12 Inactiv e 2023 03138 83502 0 Once daily By Mouth False Gabapentin 300 mg capsule [generic] 300 mg By Mouth 3 times a day For DX- NEUROPATHY 300 mg 12/12 Inactiv e 2023 37357 03525 4 3 times a day By Mouth False Loratadine 10 mg tablet [generic] 10 mg By Mouth Once daily For DX- ALLERGIES 10 mg 2023 Active 2023 56443 02096 1 Once daily By Mouth False Miralax 17 gram/dose oral powder 17 gram/dose By Mouth IN THE MORNING Mix 1 TABLESPOON IN 8 OZ OF FLUID HOLD FOR LOOSE STOOLS For DX- CONSTIPATION 17 gram/do se 12/12 Inactiv e 2023 77372 38779 0 Once daily By Mouth False Paroxetine 30 mg tablet [generic] 30 mg By Mouth Once daily For DX- DEPRESSION 30 mg 2023 00/00 /0000 Active 2023 60410 31011 3 Once daily By Mouth False Potassium citrate ER 15 mEq (1,620 mg) tablet,exte nded release [generic] 15 mEq By Mouth 3 times a day For DX- SUPPLEMENT/DI URETIC USE/ HYPOCITRAUIRA DO NOT CRUSH 15 mEq 12/12 Inactiv e 2023 67518 52286 1 3 times a day By Mouth [...] For DX- DANDRUFF 12/12 Inactiv e 2023 48395 77473 4 3 times a week Topica l False Acetaminoph en 325 mg tablet [generic] TAKE 2 TABS (650MG) BY MOUTH EVERY 4 HOURS NEEDED FOR TEMP >100 NOT TO EXCEED 3GM/24HRS TAKE 2 TABS (650MG) BY MOUTH EVERY 4 HOURS NEEDED FOR TEMP >100 NOT TO EXCEED 3GM/24HRS For DX-FEVER 2 12/12 Inactiv e 2023 64991 66520 0 By Mouth False MILK OF MAGNESIA ADMINISTER 30 ML BY MOUTH ONCE DAILY NEEDED FOR CONSTIPATION X3 DAYS WITH NO BM. For DX- CONSTIPATION 30ML 12/12 Inactiv e 2023 35576 93233 9 By Mouth False Enema Disposable 19 gram-7 gram/118 mL ADMINISTER ONE ENEMA RECTALLY ONCE DAILY NEEDED FOR CONSTIPATION ON DAY 6 OF NO BM For DX- CONSTIPATION 12/12 Inactiv e 2023 76759 47921 1 Rectal False TUMS EXTRA STR 750MG TAKE (1) TABLET BY MOUTH THREE TIMES DAILY NEEDED FOR INDIGESTION For DX- INDIGESTION 1 12/12 Inactiv e 2023 45562 34988 8 By Mouth False Vitamin D3 25 [...] CONSTIPATION 10 mg 12/12 Inactiv e 2023 86912 82478 1 Rectal False Melatonin 3 mg tablet [generic] 3 mg By Mouth As Needed For DX-INSOMMIA 3 mg 12/12 Inactiv e 2023 27529 62276 8 By Mouth False Hydrocortis one 1 % topical cream [generic] 1 % Topical As Needed For DX- PAIN 1 % 12/12 Inactiv e 2023 84577 42181 1 Topica l False HYDROCORTIS ONE/PARMOXI NE [...] 5-10 50 mg 12/20 Inactiv e 2023 13517 67064 0 Every 4 hours as needed By Mouth False Tylenol 325 mg tablet 325 mg By Mouth Every 4 hours as needed For DX- PAIN PRN FOR MILD PAIN, DO NOT EXCEED 3000MG APAP/24 HOURS 325 mg 12/20 Inactiv e 2023 03403 90468 0 Every 4 hours as needed By Mouth False Baclofen 20 mg tablet [generic] 20 mg By Mouth 4 times a day For MUSCLE SPASMS 20 mg 12/20 Inactiv e 2023 95572 75059 1 4 times a day By Mouth False Calcium citrate 250 mg tablet [generic] Once daily TAKE 4 TABLETS (1000MG) BY MOUTH For SUPPLEMENT 1000 MG 06/26 Inactiv e 2023 60579 44030 6 Once daily By Mouth False Dulcolax (bisacodyl) 10 mg rectal suppository 10 mg Rectal Once daily For CONSTIPATION *MAY HOLD FOR LOOSE STOOLS* 10 mg 2023 Active 2023 20182 94615 1 Once daily Rectal False Gabapentin 300 mg capsule [generic] 300 mg By Mouth 3 times a day For NEUROPATHY 300 mg 2023 Active 2023 49348 92352 4 3 times a day By Mouth False Potassium citrate ER 15 mEq (1,620 mg) tablet,exte nded release [generic] 15 mEq By Mouth 3 times a day For SUPPLEMENT/DI URETIC USE/HYPOCITRA URIA 15 mEq 06/11 Inactiv e 2023 08118 23661 1 3 times a day By Mouth False Potassium chloride ER 20 mEq tablet,exte nded release [generic] 20 mEq By Mouth 3 times a day *DO NOT CRUSH, CHEW OR BREAK* For SUPPLEMENT 20 mEq 12/18 Inactiv e 2023 88433 60651 1 3 times a day By Mouth False Tizanidine 4 mg tablet [generic] 4 mg By Mouth Once daily For MUSCLE SPASMS 4 mg 2023 Active 2023 26706 49741 0 Once daily By Mouth False Tylenol 325 mg tablet 2 tabs By Mouth Every 4 hours as needed For Fever >100 DO NOT EXCEED 3000 MG APAP/24 Hours 2 tabs 12/20 Inactiv e 2023 27607 09593 0 Every 4 hours as needed By Mouth False Dulcolax (bisacodyl) 10 mg rectal suppository Daily as needed For Constipation 1 sup 12/20 Inactiv e 2023 77966 28321 1 Daily as needed Rectal False Fleet Enema 19 gram-7 gram/118 mL 1 Rectal Daily as neededFor Constipation 1 12/20 Inactiv e 2023 00191 50833 6 Daily as needed Rectal False Milk of Magnesia 400 mg/5 mL oral suspension [Magnesium hydroxide] PRN 30ml By Mouth Daily as needed for constipation one time daily if no BM, on day 4 of no BM (PRN refer to instructions) For Constipation For Constipatioin 30ml 12/20 Inactiv e 2023 95051 13858 6 1 time By Mouth False Melatonin 3 mg tablet [generic] 3 mg By Mouth Once daily As Needed For INSOMNIA 3 mg 12/20 Inactiv e 2023 62448 14427 8 Once daily By Mouth False Hydrocortis one 1 % topical cream [generic] 1 % Rectal Four times daily as needed For hemorroid pain 1 % 12/20 Inactiv e 2023 80047 53726 1 Four times daily as needed Rectal False X-STGH ANTACID 750MG CHEW TAKE (1) TABLET BY MOUTH THREE TIMES DAILY NEEDED FOR INDIGESTION 12/20 Inactiv e 2023 47822 90686 4 Three times daily as needed Saline Mist 0.65 % nasal spray aerosol 0.65 % Nares Four times daily as needed For DRYNESS 0.65 % 12/20 Inactiv e 2023 38377 47372 8 Four times daily as needed Nares False Vicks Vaporub 4.7 %-1.2 %-2.6 % topical ointment Apply topically to chest Three times daily as needed For CONGESTION 4.7-1.2 -2.6 12/20 Inactiv e 2023 62310 43939 1 Three times daily as needed Topica l False VITAMIN D3 2000U CAP TAKE ONE (1) CAPSULE BY MOUTH DAILY* DO NOT CRUSH, CHEW OR BREAK* For Supplement 1 capsule 12/19 Inactiv e 2023 80320 68371 0 Once daily By Mouth False Potassium chloride ER 20 mEq tablet,exte nded release(par t/cryst) [generic] TAKE (1) TABLET BY MOUTH THREE TIMES DAILY (MORNING, AFTERNOON, EVENING)*DO NOT CRUSH, CHEW, OR BREAK* For SUPPLEMENT 20 MEQ 06/11 Inactiv e 2023 01948 69523 5 3 times a day By Mouth False Aspirin 81 mg tablet,camron yed release [generic] TAKE ONE (1) TABLET BY MOUTH ONCE DAILY*DO NOT CRUSH, CHEW OR BREAK* For CAD 81 MG 12/22 Inactiv e 2023 14020 43490 0 Once daily By Mouth False Furosemide 20 mg tablet [generic] TAKE 1 AND 1/2 TABLETS (30MG) BY MOUTH ONCE DAILY For CHF 30mg 2023 Active 2023 52925 58487 1 Once daily By Mouth False Polyethylen e glycol 3350 17 gram/dose oral powder [generic] MIX 17 GRAMS (1 CAPFUL) IN 60Z OF LIQUID AND DRINK BY MOUTH ONCE DAILY *HOLD FOR LOOSE STOOLS* For constipation 17 g 2023 Active 2023 97196 39809 3 Once daily By Mouth False Vitamin D3 50 mcg (2,000 unit) capsule Once daily TAKE ONE (1) CAPSULE BY MOUTH DAILY* DO NOT CRUSH, CHEW OR BREAK* For Supplement 1 capsule 02/07 Inactiv e 2023 44436 84021 2 Once daily By Mouth False Fleet Enema 19 gram-7 gram/118 mL 1 Rectal Daily as neededFor Constipation 1 2023 0000 Active 2023 83898 82400 6 Daily as needed Rectal False Tums E-X 300 mg (as calcium carbonate 750 mg) chewable tablet 1 tab By Mouth TAKE (1) TABLET BY MOUTH THREE TIMES DAILY NEEDED FOR INDIGESTION 1 tab 202300 /0000 Active 2023 69237 28697 1 Three times daily as needed By Mouth False Tylenol 325 mg tablet 2 tabs By Mouth Every 4 hours as needed For Fever >100 DO NOT EXCEED 3000 MG APAP/24 Hours 2 tabs 202300 /0000 Active 2023 98980 81713 0 Every 4 hours as needed By Mouth False Vicks Vaporub 4.7 %-1.2 %-2.6 % topical ointment Apply topically to chest Three times daily as needed For CONGESTION topical 202300 Active 2023 46122 08260 1 Three times daily as needed Topica l False Tylenol 325 mg tablet 2 tabs By Mouth Every 4 hours as needed For DX- PAIN PRN FOR MILD PAIN, DO NOT EXCEED 3000MG APAP/24 HOURS 2 tabs 202300 Active 2023 07026 73276 0 Every 4 hours as needed By Mouth False Tramadol 50 mg tablet [generic] 1 tab By Mouth Every 4 hours as needed For DX- PAIN 5-10 1 tab 03/10 Inactiv e 2023 97349 68280 0 Every 4 hours as needed By Mouth False Saline Mist 0.65 % nasal spray aerosol 2 sprays Nares Four times daily as needed For DRYNESS 2 sprays 202300 / Active 2023 83846 66670 8 Four times daily as needed Nares False Dulcolax (bisacodyl) 10 mg rectal suppository Daily as needed For Constipation 1 sup 202300 / Active 2023 13303 33313 1 Daily as needed Rectal False Hydrocortis one-pramoxi ne 1 %-1 % rectal cream [generic] 1 mague Rectal Four times daily as needed For hemorroid pain 1 mague 202300 /0000 Active 2023 11022 84245 4 Four times daily as needed Rectal False Melatonin 3 mg tablet [generic] 1 tab By Mouth At bedtime as needed For INSOMNIA 1 tab 12/24 Inactiv e 2023 61511 69796 8 At bedtime as needed By Mouth False Milk of Magnesia 400 mg/5 mL oral suspension 30ml By Mouth Daily as needed Daily as needed for constipation one time daily if no BM, on day 4 of no BM (PRN refer to instructions) For Constipation For Constipatioin 30ml 2023 Active 2023 28658 13809 2 Daily as needed By Mouth False Baclofen 20 mg tablet [generic] 20 mg By Mouth 4 times a day For MUSCLE SPASMS 20 mg 2023 Active 2023 50851 37983 1 4 times a day By Mouth False Melatonin 3 mg tablet [generic] 1 tab By Mouth At bedtime as needed For INSOMNIA 1 tab 2023 Active 2023 96949 17934 8 At bedtime as needed By Mouth False Bactrim DS 800 mg-160 mg tablet 1 tab By Mouth Twice daily For URINARY TRACT INFECTION, SITE NOT SPECIFIED 1 tab 01/06 Inactiv e 2023 69958 30257 1 Twice daily By Mouth N39.0 False Cefdinir 300 mg capsule [generic] 300 mg By Mouth Twice daily For UTI 300 mg 01/07 Inactiv e 2023 83443 16295 0 Twice daily By Mouth False Cefdinir 300 mg capsule [generic] 300 mg By Mouth Twice daily For UTI 300 mg 01/17 Inactiv e 2023 19354 29263 0 Twice daily By Mouth False Zyrtec 10 mg tablet 10 mg By Mouth Once daily For sinus congestion 10 mg 01/22 Inactiv e 2023 01338 38715 0 Once daily By Mouth False Tobramycin 0.3 %-dexametha sone 0.1 % eye drops,suspe nsion [generic] 0.3-0.1 % Left Eye 4 times a day For eye infection 0.3-0.1 % 02/05 Inactiv e 2023 40587 13110 5 4 times a day Left Eye False Fluconazole 150 mg tablet [generic] 150 mg By Mouth 1 time For yeast infection 150 mg 02/15 Inactiv e 2023 66850 71017 2 1 time By Mouth False Tramadol 50 mg tablet [generic] 1 tab By Mouth Every 4 hours as needed For DX- PAIN 5-10 1 tab 2023 00/00 /0000 Active 2023 39812 71533 0 Every 4 hours as needed By Mouth False Tobramycin 0.3 %-dexametha sone 0.1 % eye drops,suspe nsion [generic] 1 drop Left Eye 4 times a day For Inflammation of left eye 1 drop 05/08 Inactiv e 2023 62015 58606 5 4 times a day Left Eye False Voltaren Arthritis Pain 1 % topical gel 2 gm Topical Twice daily to rigth shoulder for 2 weeks For pain 2 gm 05/08 Inactiv e 2023 18109 81959 1 Twice daily Topica l False Chlorthalid one 25 mg tablet [generic] 12.5mg By Mouth Once daily For HTN 12.5mg 05/06 Inactiv e 2023 85256 59917 0 Once daily By Mouth False Chlorthalid one 25 mg tablet [generic] 12.5mg By Mouth Once daily For HTN 12.5mg 05/07 Inactiv e 2023 56002 59947 0 Once daily By Mouth False Chlorthalid one 25 mg tablet [generic] 05/07 Inactiv e 2023 00320 22856 0 Chlorthalid one 25 mg tablet [generic] 12.5mg By Mouth Once daily For HTN 12.5mg 06/26 Inactiv e 2023 73208 60975 0 Once daily By Mouth False Norvasc 5 mg tablet 5mg By Mouth Once daily, hold medication if systolic is less than 90 For HYPERTENSIVE HEART DISEASE WITHOUT HEART FAILURE 5mg 06/03 Inactiv e 2023 40230 27721 1 Once daily By Mouth I11.9 False Norvasc 5 mg tablet 5mg By Mouth Once daily, hold medication if systolic is less than 90 For HYPERTENSIVE HEART DISEASE WITHOUT HEART FAILURE 5mg 06/03 Inactiv e 2023 65799 37168 1 Once daily By Mouth I11.9 False Norvasc 5 mg tablet 5mg By Mouth Once daily, hold medication if systolic is less than 90 For HYPERTENSIVE HEART DISEASE WITHOUT HEART FAILURE 5mg 06/26 Inactiv e 2023 42139 16320 1 Once daily By Mouth I11.9 False [...] 10 mg 2023 00/00 /0000 Active 2023 67508 38001 1 Once daily By Mouth False DISCONTINUE [...] CAD 81 mg 06/14 Inactiv e 2023 51925 59705 9 Once daily By Mouth False Aspirin 81 mg tablet,camron yed release [generic] 06/14 Inactiv e 2023 31538 93818 9 Aspirin 81 mg tablet,camron yed release [generic] 81 mg By Mouth Once daily Do not crush, chew, or break For CAD 81 mg 06/154 Inactiv e 2023 24690 00983 9 Once daily By Mouth False Cefpodoxime 200 mg tablet [generic] 200mg By Mouth Twice daily For UTI 200mg 07/04 Inactiv e 2023 76305 38247 0 Twice daily By Mouth False Calcium citrate 250 mg tablet [generic] 06/26 Inactiv e 2023 75609 90658 6 Calcium citrate 250 mg tablet [generic] Once daily TAKE 4 TABLETS (1000MG) BY MOUTH For SUPPLEMENT 500 MG 2023 Active 2023 73720 43725 6 Once daily By Mouth False Norvasc 5 mg tablet 7.5 mg By Mouth Once daily Hold medication if SBP <90 For HYPERTENSIVE HEART DISEASE WITHOUT HEART FAILURE 7.5 mg 06/30 Inactiv e 2023 00661 89649 1 Once daily By Mouth I11.9 False Norvasc 5 mg tablet 7.5 mg By Mouth Once daily Hold medication if SBP <90 For HYPERTENSIVE HEART DISEASE WITHOUT HEART FAILURE 7.5 mg 07/06 Inactiv e 2023 95533 39187 1 Once daily By Mouth I11.9 False Simethicone 125 mg capsule [generic] 2 capule By Mouth Twice daily as needed For bloating/gas pain 2 capule 2023 Active 2023 58737 77850 0 Twice daily as needed By Mouth False Cepacol Sore Throat (benzocaine -menthol) 15 mg-2.6 mg lozenges 2 lozenges By Mouth Every 6 hours as needed For sore throat 2 lozenge s 2023 Active 2023 07060 03417 6 Every 6 hours as needed By Mouth False Cefepime 1 gram solution for injection [generic] 1g Intramuscular Every 12 hours 1g intramuscular ly ever 12 hours For UTI 1g 07/06 Inactiv e 2023 06003 49927 4 Every 12 hours Intram uscula r False Cefepime 1 gram solution for injection [generic] 07/06 Inactiv e 2023 38637 51419 4 Cefepime 1 gram solution for injection [generic] 1g Intramuscular Every 12 hours 1g intramuscular ly ever 12 hours For UTI Reconstitute with 2.4 ML of NSS. 1g 07/08 Inactiv e 2023 36702 39120 4 Every 12 hours Intram uscula r False Norvasc 5 mg tablet 07/06 Inactiv e 2023 20914 39865 1 I11.9 Norvasc 5 mg tablet 7.5 mg By Mouth Once daily Hold medication if SBP <90 For HYPERTENSIVE HEART DISEASE WITHOUT HEART FAILURE 7.5 mg 07/18 Inactiv e 2023 99375 72767 1 Once daily By Mouth I11.9 False Cefepime 1 gram solution for injection [generic] 07/08 Inactiv e 2023 22725 65664 4 Cefepime 1 gram solution for injection [generic] 1g Intramuscular Every 12 hours 1g intramuscular ly ever 12 hours For UTI Reconstitute with 2.4 ML of NSS. 1g 07/08 Inactiv e 2023 33136 62789 4 Every 12 hours Intram uscula r False Cefepime 1 gram solution for injection [generic] 07/08 Inactiv e 2023 31077 43321 4 Cefepime 1 gram solution for injection [generic] 1g Intramuscular Every 12 hours 1g intramuscular ly ever 12 hours For UTI Reconstitute with 2.4 ML of NSS. 1g 07/11 Inactiv e 2023 86629 21129 4 Every 12 hours Intram uscula r False Fleet Enema 19 gram-7 gram/118 mL 1 Rectal 1 time For constipation 1 07/16 Inactiv e 2024 38717 22121 6 1 time Rectal False Fleet Enema 19 gram-7 gram/118 mL 1 Rectal 1 time For constipation 1 07/17 Inactiv e 2024 75287 33028 6 1 time Rectal False Norvasc 5 mg tablet 7.5 mg By Mouth Once daily For HYPERTENSIVE HEART DISEASE WITHOUT HEART FAILURE 7.5 mg 2024 0000 /0000 Active 2024 97157 41561 1 Once daily By Mouth I11.9 False Potassium chloride ER 20 mEq tablet,exte nded release(par t/cryst) [generic] 40 mEq By Mouth 1 time For low potassium prior to surgery 40 mEq 07/18 Inactiv e 2024 76864 90162 1 1 time By Mouth False Potassium chloride ER 20 mEq tablet,exte nded release(par t/cryst) [generic] 40 mEq By Mouth 1 time For low potassium prior to surgery 40 mEq 07/18 Inactiv e 2024 56409 49116 1 1 time By Mouth False Potassium chloride ER 20 mEq tablet,exte nded release(par t/cryst) [generic] 40 mEq By Mouth 1 time For low potassium 40 mEq 07/18 Inactiv e 2024 38263 78448 1 1 time By Mouth False Potassium chloride ER 20 mEq tablet,exte nded release(par t/cryst) [generic] 40 mEq By Mouth 1 time For low potassium 40 mEq 07/18 Inactiv e 2024 96957 14244 1 1 time By Mouth False Potassium chloride ER 20 mEq tablet,exte nded release [generic] 2 By Mouth 1 time For low potassium 2 07/19 Active 2024 85272 86067 1 1 time By Mouth False Potassium chloride ER 20 mEq tablet,exte nded release [generic] 2 capsules capsules By Mouth 1 time Please send capsule (2 capsules) For low potassium 2 capsule s 07/20 Active 2024 38801 15240 1 1 time By Mouth False Nystatin 100,000 unit/gram topical cream [generic] 100,000 unit Topical As Needed For DX- EXCORIATION 100,000 unit 12/12 Inactiv e 2023 96513 60566 5 Topica l False Vicks Vaporub 4.7 %-1.2 %-2.6 % topical ointment 4.7-1.2-2.6 Topical 3 times a day As Needed For DX- CONGESTION 4.7-1.2 -2.6 12/12 Inactiv e 2023 50207 31599 1 3 times a day Topica l False Ketoconazol e 2 % shampoo [generic] APPLY SHAMPOO TOPICALLY TO SCALP DURING HAIR WASHINGDX: ELVIA DERM OF SCALP For DX- ELVIA DERM OF SCALP 12/12 Inactiv e 2023 80786 68025 4 Topica l False THERA SILICONE SKIN GUARD Topical Twice daily 1 APPLICATION TOPICALLY IN THE MORNING AND AT BEDTIME TO SCROTUM For DX- PREVENTION 2023 0000 0000 Active 2023 Twice daily Topica l False Selenium sulfide 2.5 % lotion [generic] 2.5 % Topical EVERY MONDAY, MONDAY AND MONDAY AFTER SHOWER For DANDRUFF 2.5 % 2023 0000 /0000 Active 2023 19150 28292 4 3 times a week Topica l False Nystatin (bulk) 100 million unit powder [generic] 100 million Topical Twice daily as needed For EXOCORATION 100 million 12/20 Inactiv e 2023 61364 60384 1 Twice daily as needed Topica l False Ketoconazol e 2 % shampoo [generic] Once daily APPLY SHAMPOO TOPICALLY TO SCALP DURING HAIR WASHING ON SHOWER DAYS- , , MON For ELVIA DERM OF SCAP 2 % 2023 0000 /0000 Active 2023 90346 94585 4 Once daily Topica l False Nystatin 100,000 unit/gram topical cream [generic] 1 mague Topical Twice daily as needed For EXOCORATION 1 mague 06/05 Inactiv e 2023 08067 02184 5 Twice daily as needed Topica l False Nystatin 100,000 unit/gram topical powder [generic] 100,000 unit Topical Twice daily to scrotum with AM and PM care For Scrotal excoriation 100,000 unit 06/05 Inactiv e 2023 25704 38119 5 Twice daily Topica l False Problems [...] of urinary device 07/21/2023 Active Z79.01 intermediate (current) use of anticoagulants 07/21 Active N31.9 [...] weight Temperature SpO2 Blood Sugar Pulse Respirations 63631 210 05141 6 80.00 mm[Hg] - Sitting 132.00 mm[Hg] - Sitting 91009 211 38364 5 78.00 mm[Hg] - Sitting 125.00 mm[Hg] - Sitting 21242 216 71626 1 254.10 NI 55341 216 06008 2 79.00 mm[Hg] - Sitting 157.00 mm[Hg] - Sitting 73 NI 254.10 NI 36.30 Tympanic 95.00 % 72.00/ min 16.00/min 41902 216 94245 4 98.80 Tympanic 19600 216 91571 2 78.00 mm[Hg] - Sitting 164.00 mm[Hg] - Sitting 14008 217 89688 3 98.20 Tympanic 15787 217 07854 5 73.00 mm[Hg] - Sitting 159.00 mm[Hg] - Sitting 68224 217 95176 9 98.40 Forehead Scan 62814 218 53524 3 97.90 Tympanic 86532 218 15965 5 77.00 mm[Hg] - Sitting 137.00 mm[Hg] - Sitting 30440 219 04150 0 97.70 Tympanic 62066 219 88893 6 97.60 Tympanic 80349 219 52941 4 76.00 mm[Hg] - Sitting 139.00 mm[Hg] - Sitting 74592 219 43378 4 97.80 Forehead Scan 76486 220 71037 9 97.90 Tympanic 19936 220 38242 9 76.00 mm[Hg] - Sitting 138.00 mm[Hg] - Sitting 91563 220 11154 6 98.10 Tympanic 42933 221 91329 5 67.00 mm[Hg] - Sitting 142.00 mm[Hg] - Sitting 38335 221 77316 8 98.20 Tympanic 31678 221 18906 0 98.30 Tympanic 63172 222 05905 7 98.20 Tympanic 90795 222 10439 8 97.90 Tympanic 41335 223 65328 3 98.20 Tympanic 16489 223 80985 3 98.00 Tympanic 10132 224 28511 0 59.00 mm[Hg] - Sitting 111.00 mm[Hg] - Sitting 98.40 Forehead Scan 95.00 % 56.00/ min 18.00/min 04857 224 34208 9 98.20 Forehead Scan 23722 224 69331 3 97.90 Tympanic 04247 225 22982 4 98.20 Tympanic 56308 225 98416 8 97.50 Forehead Scan 77190 228 31675 0 55.00 mm[Hg] - Sitting 118.00 mm[Hg] - Sitting 98.40 Tympanic 69.00/ min 63251 229 05984 8 78.00 mm[Hg] - Sitting 152.00 mm[Hg] - Sitting 73963 230 27912 0 62.00 mm[Hg] - Sitting 122.00 mm[Hg] - Sitting 56264 231 59011 7 72.00 mm[Hg] - Lying Down 140.00 mm[Hg] - Lying Down 27711 101 40982 3 97.70 Forehead Scan 22917 101 73389 1 254.10 NI 69.00/ min 89778 101 44757 9 72.00 mm[Hg] - Sitting 142.00 mm[Hg] - Sitting 97.70 Tympanic 18.00/min 50733 101 58212 3 72.00 mm[Hg] - Lying Down 142.00 mm[Hg] - Lying Down 02529 102 27908 8 68.00 mm[Hg] - Lying Down 152.00 mm[Hg] - Lying Down 71951 103 78720 5 74.00 mm[Hg] - Sitting 158.00 mm[Hg] - Sitting 78589 104 80271 9 78.00 mm[Hg] - Sitting 144.00 mm[Hg] - Sitting 13173 105 84939 5 68.00 mm[Hg] - Sitting 138.00 mm[Hg] - Sitting 06766 106 76643 1 70.00 mm[Hg] - Sitting 138.00 mm[Hg] - Sitting 55474 107 03797 1 67.00 mm[Hg] - Sitting 142.00 mm[Hg] - Sitting 11574 108 08832 0 74.00 mm[Hg] - Sitting 143.00 mm[Hg] [...]
[2024-07-26] MEDS ORDERED: PHENYLEPHRINE HCL 10 MG/ML VIAL ONE (11:19)
--- OUTSIDE RECORDS SUMMARY | 2024-07-26 11:19 | External Medical Summary | Continuity Of Care Document ---
Author Name Unknown Address [address] [place] [address] Organization [facility] () Care Team Providers Care Cutter Inspector Name Role Phone DO Pritchett Amy Primary Care Provider [phone] Allergies Allergy Reaction Start Date End Date Status AMINOGLYCOSIDES Active CIPRO Active GENTAMICIN Active NSAIDS (NON-STEROIDAL ANTI-INFLAMMATORY DRUG) 0 Active IBUPROFEN Active QUINOLONES Active VALIUM Active Medications Medication Instructions Dosage Start Date End Date Status Order Date Drug Code Frequency Route of Admin Diagnosis Code Substitutions Allowed Spikevax [id number](1 2y up)(PF) 50 mcg/0.5 mL intramuscul ar suspension [COVID [id number](12 up)(andu)(P F)] 0.5mL Intramuscular 1 time Monitory 15 Minutes post injection for adverse effects; record site/temp For COVID 19 PREVENTION 0.5mL 01/02 Inactiv e 2023 26422 60744 4 1 time Intram uscula r False [facility] - Nurse initials indicate verificatio n that [id number] vaccine was administere d by [facility] 1 Intramuscular 1 time ( Indicate vaccine type) For vaccine 1 05/03 Inactiv e 2023 1 time Intram uscula r False Lisinopril 40 mg tablet [generic] TAKE ONE (1) TABLET BY MOUTH IN THE MORNING. For DX- HTN 1 2023 Active 2023 33102 45993 1 Once daily By Mouth False Tizanidine 2 mg tablet [generic] TAKE ONE (1) TABLET BY MOUTH ONCE DAILY For MUSCLE SPASM 1 2023 Active 2023 93775 40658 0 Once daily By Mouth M62.838 False Tamsulosin 0.4 mg capsule [generic] TAKE (1) CAPSULE BY MOUTH AT BEDTIME For SPASMS 1 2023 Active 2023 25933 67196 0 Once daily By Mouth False Aspirin 81 mg tablet Once daily 1 TABLET BY MOUTH IN THE MORNING For DX- CAD DO NOT CRUSH, CHEW OR BREAK 81 mg 06/12 Inactiv e 2023 Once daily By Mouth False Baclofen 20 mg tablet [generic] 20 mg By Mouth 4 times a day For DX- MUSCLE SPASMS 20 mg 12/12 Inactiv e 2023 16046 52255 1 4 times a day By Mouth False Calcium citrate 250 mg tablet Once daily 4 TABLET BY MOUTH For DX- SUPPLEMENT 250 mg calci 12/12 Inactiv e 2023 Once daily By Mouth False Co Q-10 100 mg capsule 100 mg By Mouth Once daily For DX- SUPPLEMENT 100 mg 06/20 Inactiv e 2023 38197 03000 5 Once daily By Mouth False Furosemide 20 mg tablet [generic] 20 mg By Mouth Once daily For DX-CHF 20 mg 12/12 Inactiv e 2023 08864 42366 0 Once daily By Mouth False Gabapentin 300 mg capsule [generic] 300 mg By Mouth 3 times a day For DX- NEUROPATHY 300 mg 12/12 Inactiv e 2023 52128 40577 4 3 times a day By Mouth False Loratadine 10 mg tablet [generic] 10 mg By Mouth Once daily For DX- ALLERGIES 10 mg 2023 Active 2023 91645 22387 1 Once daily By Mouth False Miralax 17 gram/dose oral powder 17 gram/dose By Mouth IN THE MORNING Mix 1 TABLESPOON IN 8 OZ OF FLUID HOLD FOR LOOSE STOOLS For DX- CONSTIPATION 17 gram/do se 12/12 Inactiv e 2023 90964 36980 0 Once daily By Mouth False Paroxetine 30 mg tablet [generic] 30 mg By Mouth Once daily For DX- DEPRESSION 30 mg 2023 00/00 /0000 Active 2023 94397 22189 3 Once daily By Mouth False Potassium citrate ER 15 mEq (1,620 mg) tablet,exte nded release [generic] 15 mEq By Mouth 3 times a day For DX- SUPPLEMENT/DI URETIC USE/ HYPOCITRAUIRA DO NOT CRUSH 15 mEq 12/12 Inactiv e 2023 21348 50021 1 3 times a day By Mouth [...] For DX- DANDRUFF 12/12 Inactiv e 2023 57001 61159 4 3 times a week Topica l False Acetaminoph en 325 mg tablet [generic] TAKE 2 TABS (650MG) BY MOUTH EVERY 4 HOURS NEEDED FOR TEMP >100 NOT TO EXCEED 3GM/24HRS TAKE 2 TABS (650MG) BY MOUTH EVERY 4 HOURS NEEDED FOR TEMP >100 NOT TO EXCEED 3GM/24HRS For DX-FEVER 2 12/12 Inactiv e 2023 80169 26488 0 By Mouth False MILK OF MAGNESIA ADMINISTER 30 ML BY MOUTH ONCE DAILY NEEDED FOR CONSTIPATION X3 DAYS WITH NO BM. For DX- CONSTIPATION 30ML 12/12 Inactiv e 2023 76492 78181 9 By Mouth False Enema Disposable 19 gram-7 gram/118 mL ADMINISTER ONE ENEMA RECTALLY ONCE DAILY NEEDED FOR CONSTIPATION ON DAY 6 OF NO BM For DX- CONSTIPATION 12/12 Inactiv e 2023 41994 73030 1 Rectal False TUMS EXTRA STR 750MG TAKE (1) TABLET BY MOUTH THREE TIMES DAILY NEEDED FOR INDIGESTION For DX- INDIGESTION 1 12/12 Inactiv e 2023 87326 06780 8 By Mouth False Vitamin D3 25 [...] CONSTIPATION 10 mg 12/12 Inactiv e 2023 57152 36642 1 Rectal False Melatonin 3 mg tablet [generic] 3 mg By Mouth As Needed For DX-INSOMMIA 3 mg 12/12 Inactiv e 2023 00428 39318 8 By Mouth False Hydrocortis one 1 % topical cream [generic] 1 % Topical As Needed For DX- PAIN 1 % 12/12 Inactiv e 2023 08004 18466 1 Topica l False HYDROCORTIS ONE/PARMOXI NE [...] 5-10 50 mg 12/20 Inactiv e 2023 47480 62541 0 Every 4 hours as needed By Mouth False Tylenol 325 mg tablet 325 mg By Mouth Every 4 hours as needed For DX- PAIN PRN FOR MILD PAIN, DO NOT EXCEED 3000MG APAP/24 HOURS 325 mg 12/20 Inactiv e 2023 19983 63747 0 Every 4 hours as needed By Mouth False Baclofen 20 mg tablet [generic] 20 mg By Mouth 4 times a day For MUSCLE SPASMS 20 mg 12/20 Inactiv e 2023 52427 23423 1 4 times a day By Mouth False Calcium citrate 250 mg tablet [generic] Once daily TAKE 4 TABLETS (1000MG) BY MOUTH For SUPPLEMENT 1000 MG 06/26 Inactiv e 2023 74465 44399 6 Once daily By Mouth False Dulcolax (bisacodyl) 10 mg rectal suppository 10 mg Rectal Once daily For CONSTIPATION *MAY HOLD FOR LOOSE STOOLS* 10 mg 2023 Active 2023 12409 69433 1 Once daily Rectal False Gabapentin 300 mg capsule [generic] 300 mg By Mouth 3 times a day For NEUROPATHY 300 mg 2023 Active 2023 81376 21330 4 3 times a day By Mouth False Potassium citrate ER 15 mEq (1,620 mg) tablet,exte nded release [generic] 15 mEq By Mouth 3 times a day For SUPPLEMENT/DI URETIC USE/HYPOCITRA URIA 15 mEq 06/11 Inactiv e 2023 16520 59319 1 3 times a day By Mouth False Potassium chloride ER 20 mEq tablet,exte nded release [generic] 20 mEq By Mouth 3 times a day *DO NOT CRUSH, CHEW OR BREAK* For SUPPLEMENT 20 mEq 12/18 Inactiv e 2023 21498 12836 1 3 times a day By Mouth False Tizanidine 4 mg tablet [generic] 4 mg By Mouth Once daily For MUSCLE SPASMS 4 mg 2023 Active 2023 42869 93195 0 Once daily By Mouth False Tylenol 325 mg tablet 2 tabs By Mouth Every 4 hours as needed For Fever >100 DO NOT EXCEED 3000 MG APAP/24 Hours 2 tabs 12/20 Inactiv e 2023 43733 37377 0 Every 4 hours as needed By Mouth False Dulcolax (bisacodyl) 10 mg rectal suppository Daily as needed For Constipation 1 sup 12/20 Inactiv e 2023 03192 01931 1 Daily as needed Rectal False Fleet Enema 19 gram-7 gram/118 mL 1 Rectal Daily as neededFor Constipation 1 12/20 Inactiv e 2023 03490 54278 6 Daily as needed Rectal False Milk of Magnesia 400 mg/5 mL oral suspension [Magnesium hydroxide] PRN 30ml By Mouth Daily as needed for constipation one time daily if no BM, on day 4 of no BM (PRN refer to instructions) For Constipation For Constipatioin 30ml 12/20 Inactiv e 2023 46529 60067 6 1 time By Mouth False Melatonin 3 mg tablet [generic] 3 mg By Mouth Once daily As Needed For INSOMNIA 3 mg 12/20 Inactiv e 2023 19320 55069 8 Once daily By Mouth False Hydrocortis one 1 % topical cream [generic] 1 % Rectal Four times daily as needed For hemorroid pain 1 % 12/20 Inactiv e 2023 96355 78791 1 Four times daily as needed Rectal False X-STGH ANTACID 750MG CHEW TAKE (1) TABLET BY MOUTH THREE TIMES DAILY NEEDED FOR INDIGESTION 12/20 Inactiv e 2023 23979 86399 4 Three times daily as needed Saline Mist 0.65 % nasal spray aerosol 0.65 % Nares Four times daily as needed For DRYNESS 0.65 % 12/20 Inactiv e 2023 34239 42636 8 Four times daily as needed Nares False Vicks Vaporub 4.7 %-1.2 %-2.6 % topical ointment Apply topically to chest Three times daily as needed For CONGESTION 4.7-1.2 -2.6 12/20 Inactiv e 2023 49335 06086 1 Three times daily as needed Topica l False VITAMIN D3 2000U CAP TAKE ONE (1) CAPSULE BY MOUTH DAILY* DO NOT CRUSH, CHEW OR BREAK* For Supplement 1 capsule 12/19 Inactiv e 2023 36344 70821 0 Once daily By Mouth False Potassium chloride ER 20 mEq tablet,exte nded release(par t/cryst) [generic] TAKE (1) TABLET BY MOUTH THREE TIMES DAILY (MORNING, AFTERNOON, EVENING)*DO NOT CRUSH, CHEW, OR BREAK* For SUPPLEMENT 20 MEQ 06/11 Inactiv e 2023 29826 30928 5 3 times a day By Mouth False Aspirin 81 mg tablet,camron yed release [generic] TAKE ONE (1) TABLET BY MOUTH ONCE DAILY*DO NOT CRUSH, CHEW OR BREAK* For CAD 81 MG 12/22 Inactiv e 2023 31413 45869 0 Once daily By Mouth False Furosemide 20 mg tablet [generic] TAKE 1 AND 1/2 TABLETS (30MG) BY MOUTH ONCE DAILY For CHF 30mg 2023 Active 2023 17985 79110 1 Once daily By Mouth False Polyethylen e glycol 3350 17 gram/dose oral powder [generic] MIX 17 GRAMS (1 CAPFUL) IN 60Z OF LIQUID AND DRINK BY MOUTH ONCE DAILY *HOLD FOR LOOSE STOOLS* For constipation 17 g 2023 Active 2023 70191 29073 3 Once daily By Mouth False Vitamin D3 50 mcg (2,000 unit) capsule Once daily TAKE ONE (1) CAPSULE BY MOUTH DAILY* DO NOT CRUSH, CHEW OR BREAK* For Supplement 1 capsule 02/07 Inactiv e 2023 52168 89661 2 Once daily By Mouth False Fleet Enema 19 gram-7 gram/118 mL 1 Rectal Daily as neededFor Constipation 1 2023 0000 Active 2023 73871 44749 6 Daily as needed Rectal False Tums E-X 300 mg (as calcium carbonate 750 mg) chewable tablet 1 tab By Mouth TAKE (1) TABLET BY MOUTH THREE TIMES DAILY NEEDED FOR INDIGESTION 1 tab 202300 /0000 Active 2023 62539 52319 1 Three times daily as needed By Mouth False Tylenol 325 mg tablet 2 tabs By Mouth Every 4 hours as needed For Fever >100 DO NOT EXCEED 3000 MG APAP/24 Hours 2 tabs 202300 /0000 Active 2023 57691 17937 0 Every 4 hours as needed By Mouth False Vicks Vaporub 4.7 %-1.2 %-2.6 % topical ointment Apply topically to chest Three times daily as needed For CONGESTION topical 202300 Active 2023 53877 44860 1 Three times daily as needed Topica l False Tylenol 325 mg tablet 2 tabs By Mouth Every 4 hours as needed For DX- PAIN PRN FOR MILD PAIN, DO NOT EXCEED 3000MG APAP/24 HOURS 2 tabs 202300 Active 2023 13019 21663 0 Every 4 hours as needed By Mouth False Tramadol 50 mg tablet [generic] 1 tab By Mouth Every 4 hours as needed For DX- PAIN 5-10 1 tab 03/10 Inactiv e 2023 57785 49893 0 Every 4 hours as needed By Mouth False Saline Mist 0.65 % nasal spray aerosol 2 sprays Nares Four times daily as needed For DRYNESS 2 sprays 202300 / Active 2023 23986 26071 8 Four times daily as needed Nares False Dulcolax (bisacodyl) 10 mg rectal suppository Daily as needed For Constipation 1 sup 202300 / Active 2023 14009 34167 1 Daily as needed Rectal False Hydrocortis one-pramoxi ne 1 %-1 % rectal cream [generic] 1 mague Rectal Four times daily as needed For hemorroid pain 1 mague 202300 /0000 Active 2023 13517 15454 4 Four times daily as needed Rectal False Melatonin 3 mg tablet [generic] 1 tab By Mouth At bedtime as needed For INSOMNIA 1 tab 12/24 Inactiv e 2023 74588 61882 8 At bedtime as needed By Mouth False Milk of Magnesia 400 mg/5 mL oral suspension 30ml By Mouth Daily as needed Daily as needed for constipation one time daily if no BM, on day 4 of no BM (PRN refer to instructions) For Constipation For Constipatioin 30ml 2023 Active 2023 24539 36994 2 Daily as needed By Mouth False Baclofen 20 mg tablet [generic] 20 mg By Mouth 4 times a day For MUSCLE SPASMS 20 mg 2023 Active 2023 11200 25441 1 4 times a day By Mouth False Melatonin 3 mg tablet [generic] 1 tab By Mouth At bedtime as needed For INSOMNIA 1 tab 2023 Active 2023 18235 29533 8 At bedtime as needed By Mouth False Bactrim DS 800 mg-160 mg tablet 1 tab By Mouth Twice daily For URINARY TRACT INFECTION, SITE NOT SPECIFIED 1 tab 01/06 Inactiv e 2023 14155 73045 1 Twice daily By Mouth N39.0 False Cefdinir 300 mg capsule [generic] 300 mg By Mouth Twice daily For UTI 300 mg 01/07 Inactiv e 2023 98721 31231 0 Twice daily By Mouth False Cefdinir 300 mg capsule [generic] 300 mg By Mouth Twice daily For UTI 300 mg 01/17 Inactiv e 2023 16939 42213 0 Twice daily By Mouth False Zyrtec 10 mg tablet 10 mg By Mouth Once daily For sinus congestion 10 mg 01/22 Inactiv e 2023 82566 05844 0 Once daily By Mouth False Tobramycin 0.3 %-dexametha sone 0.1 % eye drops,suspe nsion [generic] 0.3-0.1 % Left Eye 4 times a day For eye infection 0.3-0.1 % 02/05 Inactiv e 2023 05197 32266 5 4 times a day Left Eye False Fluconazole 150 mg tablet [generic] 150 mg By Mouth 1 time For yeast infection 150 mg 02/15 Inactiv e 2023 66614 54875 2 1 time By Mouth False Tramadol 50 mg tablet [generic] 1 tab By Mouth Every 4 hours as needed For DX- PAIN 5-10 1 tab 2023 00/00 /0000 Active 2023 24737 69233 0 Every 4 hours as needed By Mouth False Tobramycin 0.3 %-dexametha sone 0.1 % eye drops,suspe nsion [generic] 1 drop Left Eye 4 times a day For Inflammation of left eye 1 drop 05/08 Inactiv e 2023 37596 00323 5 4 times a day Left Eye False Voltaren Arthritis Pain 1 % topical gel 2 gm Topical Twice daily to rigth shoulder for 2 weeks For pain 2 gm 05/08 Inactiv e 2023 55530 03269 1 Twice daily Topica l False Chlorthalid one 25 mg tablet [generic] 12.5mg By Mouth Once daily For HTN 12.5mg 05/06 Inactiv e 2023 53654 63909 0 Once daily By Mouth False Chlorthalid one 25 mg tablet [generic] 12.5mg By Mouth Once daily For HTN 12.5mg 05/07 Inactiv e 2023 05189 41591 0 Once daily By Mouth False Chlorthalid one 25 mg tablet [generic] 05/07 Inactiv e 2023 46426 15792 0 Chlorthalid one 25 mg tablet [generic] 12.5mg By Mouth Once daily For HTN 12.5mg 06/26 Inactiv e 2023 64540 45745 0 Once daily By Mouth False Norvasc 5 mg tablet 5mg By Mouth Once daily, hold medication if systolic is less than 90 For HYPERTENSIVE HEART DISEASE WITHOUT HEART FAILURE 5mg 06/03 Inactiv e 2023 13293 89677 1 Once daily By Mouth I11.9 False Norvasc 5 mg tablet 5mg By Mouth Once daily, hold medication if systolic is less than 90 For HYPERTENSIVE HEART DISEASE WITHOUT HEART FAILURE 5mg 06/03 Inactiv e 2023 18991 56162 1 Once daily By Mouth I11.9 False Norvasc 5 mg tablet 5mg By Mouth Once daily, hold medication if systolic is less than 90 For HYPERTENSIVE HEART DISEASE WITHOUT HEART FAILURE 5mg 06/26 Inactiv e 2023 16025 42588 1 Once daily By Mouth I11.9 False [...] 10 mg 2023 00/00 /0000 Active 2023 56181 30134 1 Once daily By Mouth False DISCONTINUE [...] CAD 81 mg 06/14 Inactiv e 2023 93450 09661 9 Once daily By Mouth False Aspirin 81 mg tablet,camron yed release [generic] 06/14 Inactiv e 2023 20812 29263 9 Aspirin 81 mg tablet,camron yed release [generic] 81 mg By Mouth Once daily Do not crush, chew, or break For CAD 81 mg 06/154 Inactiv e 2023 19585 32280 9 Once daily By Mouth False Cefpodoxime 200 mg tablet [generic] 200mg By Mouth Twice daily For UTI 200mg 07/04 Inactiv e 2023 33256 22144 0 Twice daily By Mouth False Calcium citrate 250 mg tablet [generic] 06/26 Inactiv e 2023 86903 40679 6 Calcium citrate 250 mg tablet [generic] Once daily TAKE 4 TABLETS (1000MG) BY MOUTH For SUPPLEMENT 500 MG 2023 Active 2023 73612 69267 6 Once daily By Mouth False Norvasc 5 mg tablet 7.5 mg By Mouth Once daily Hold medication if SBP <90 For HYPERTENSIVE HEART DISEASE WITHOUT HEART FAILURE 7.5 mg 06/30 Inactiv e 2023 47604 39285 1 Once daily By Mouth I11.9 False Norvasc 5 mg tablet 7.5 mg By Mouth Once daily Hold medication if SBP <90 For HYPERTENSIVE HEART DISEASE WITHOUT HEART FAILURE 7.5 mg 07/06 Inactiv e 2023 62027 41812 1 Once daily By Mouth I11.9 False Simethicone 125 mg capsule [generic] 2 capule By Mouth Twice daily as needed For bloating/gas pain 2 capule 2023 Active 2023 70136 39693 0 Twice daily as needed By Mouth False Cepacol Sore Throat (benzocaine -menthol) 15 mg-2.6 mg lozenges 2 lozenges By Mouth Every 6 hours as needed For sore throat 2 lozenge s 2023 Active 2023 23160 95319 6 Every 6 hours as needed By Mouth False Cefepime 1 gram solution for injection [generic] 1g Intramuscular Every 12 hours 1g intramuscular ly ever 12 hours For UTI 1g 07/06 Inactiv e 2023 63093 61985 4 Every 12 hours Intram uscula r False Cefepime 1 gram solution for injection [generic] 07/06 Inactiv e 2023 52377 93339 4 Cefepime 1 gram solution for injection [generic] 1g Intramuscular Every 12 hours 1g intramuscular ly ever 12 hours For UTI Reconstitute with 2.4 ML of NSS. 1g 07/08 Inactiv e 2023 88992 88361 4 Every 12 hours Intram uscula r False Norvasc 5 mg tablet 07/06 Inactiv e 2023 34736 84842 1 I11.9 Norvasc 5 mg tablet 7.5 mg By Mouth Once daily Hold medication if SBP <90 For HYPERTENSIVE HEART DISEASE WITHOUT HEART FAILURE 7.5 mg 2023 Active 2023 37467 70512 1 Once daily By Mouth I11.9 False Cefepime 1 gram solution for injection [generic] 07/08 Inactiv e 2023 35287 14711 4 Cefepime 1 gram solution for injection [generic] 1g Intramuscular Every 12 hours 1g intramuscular ly ever 12 hours For UTI Reconstitute with 2.4 ML of NSS. 1g 07/08 Inactiv e 2023 86529 01956 4 Every 12 hours Intram uscula r False Cefepime 1 gram solution for injection [generic] 07/08 Inactiv e 2023 11500 35261 4 Cefepime 1 gram solution for injection [generic] 1g Intramuscular Every 12 hours 1g intramuscular ly ever 12 hours For UTI Reconstitute with 2.4 ML of NSS. 1g 07/11 Inactiv e 2023 25338 86179 4 Every 12 hours Intram uscula r False Fleet Enema 19 gram-7 gram/118 mL 1 Rectal 1 time For constipation 1 07/16 Inactiv e 2024 81286 16317 6 1 time Rectal False Fleet Enema 19 gram-7 gram/118 mL 1 Rectal 1 time For constipation 1 202400 /0000 Active 2024 25283 81930 6 1 time Rectal False Nystatin 100,000 unit/gram topical cream [generic] 100,000 unit Topical As Needed For DX- EXCORIATION 100,000 unit 12/12 Inactiv e 2023 81327 80340 5 Topica l False Vicks Vaporub 4.7 %-1.2 %-2.6 % topical ointment 4.7-1.2-2.6 Topical 3 times a day As Needed For DX- CONGESTION 4.7-1.2 -2.6 12/12 Inactiv e 2023 78281 82231 1 3 times a day Topica l False Ketoconazol e 2 % shampoo [generic] APPLY SHAMPOO TOPICALLY TO SCALP DURING HAIR WASHINGDX: ELVIA DERM OF SCALP For DX- ELVIA DERM OF SCALP 12/12 Inactiv e 2023 85555 59696 4 Topica l False THERA SILICONE SKIN GUARD Topical Twice daily 1 APPLICATION TOPICALLY IN THE MORNING AND AT BEDTIME TO SCROTUM For DX- PREVENTION 2023 0000 Active 2023 Twice daily Topica l False Selenium sulfide 2.5 % lotion [generic] 2.5 % Topical EVERY MONDAY, MONDAY AND MONDAY AFTER SHOWER For DANDRUFF 2.5 % 2023 0000 /0000 Active 2023 23507 61875 4 3 times a week Topica l False Nystatin (bulk) 100 million unit powder [generic] 100 million Topical Twice daily as needed For EXOCORATION 100 million 12/20 Inactiv e 2023 14786 34031 1 Twice daily as needed Topica l False Ketoconazol e 2 % shampoo [generic] Once daily APPLY SHAMPOO TOPICALLY TO SCALP DURING HAIR WASHING ON SHOWER DAYS- , , MON For ELVIA DERM OF SCAP 2 % 2023 0000 /0000 Active 2023 03496 23585 4 Once daily Topica l False Nystatin 100,000 unit/gram topical cream [generic] 1 mague Topical Twice daily as needed For EXOCORATION 1 mague 06/05 Inactiv e 2023 09216 38365 5 Twice daily as needed Topica l False Nystatin 100,000 unit/gram topical powder [generic] 100,000 unit Topical Twice daily to scrotum with AM and PM care For Scrotal excoriation 100,000 unit 06/05 Inactiv e 2023 11498 76438 5 Twice daily Topica l False Problems [...] adjustment of urinary device 07/21/2023 Active Z79.01 [facility] (current) use of anticoagulants 07/21 Active N31.9 Neuromuscular dysfun ction of bladder, unspecified 07/21/2023 Active G82.50 Quadriplegia, unspecified 06/21/2024 Active S14.102S Unspecified injury a t C2 level of cervical spinal cord, sequela 06/21/2024 Active S14.109A Unspecified injury a t unspecified level of cervical spinal cord, initial encounter 06/21/2024 Active M62.81 Muscle weakness (generalized) 06/21/2024 0000 Active VITAL SIGNS Date Time Diastolic blood pressure Systolic blood pressure Body height Body weight Temperature SpO2 Blood Sugar Pulse Respirations 52390 209 75524 2 78.00 mm[Hg] - Sitting 130.00 mm[Hg] - Sitting 53946 210 93867 6 80.00 mm[Hg] - Sitting 132.00 mm[Hg] - Sitting 36022 211 03859 5 78.00 mm[Hg] - Sitting 125.00 mm[Hg] - Sitting 83473 216 02627 1 254.10 NI 85300 216 30519 2 79.00 mm[Hg] - Sitting 157.00 mm[Hg] - Sitting 73 NI 254.10 NI 36.30 Tympanic 95.00 % 72.00/ min 16.00/min 81674 216 17836 4 98.80 Tympanic 77694 216 72892 2 78.00 mm[Hg] - Sitting 164.00 mm[Hg] - Sitting 21261 217 47954 3 98.20 Tympanic 92071 217 65439 5 73.00 mm[Hg] - Sitting 159.00 mm[Hg] - Sitting 72160 217 89455 9 98.40 Forehead Scan 65861 218 41153 3 97.90 Tympanic 97360 218 64360 5 77.00 mm[Hg] - Sitting 137.00 mm[Hg] - Sitting 63227 219 14698 0 97.70 Tympanic 51589 219 62835 6 97.60 Tympanic 73797 219 08410 4 76.00 mm[Hg] - Sitting 139.00 mm[Hg] - Sitting 47030 219 71382 4 97.80 Forehead Scan 41524 220 12295 9 97.90 Tympanic 86393 220 60620 9 76.00 mm[Hg] - Sitting 138.00 mm[Hg] - Sitting 53422 220 86572 6 98.10 Tympanic 65460 221 61534 5 67.00 mm[Hg] - Sitting 142.00 mm[Hg] - Sitting 64782 221 72077 8 98.20 Tympanic 32120 221 12887 0 98.30 Tympanic 62019 222 43320 7 98.20 Tympanic 64883 222 79563 8 97.90 Tympanic 84054 223 38687 3 98.20 Tympanic 58338 223 13219 3 98.00 Tympanic 92833 224 31871 0 59.00 mm[Hg] - Sitting 111.00 mm[Hg] - Sitting 98.40 Forehead Scan 95.00 % 56.00/ min 18.00/min 57012 224 62350 9 98.20 Forehead Scan 90688 224 33243 3 97.90 Tympanic 08679 225 59639 4 98.20 Tympanic 34095 225 15577 8 97.50 Forehead Scan 77881 228 49224 0 55.00 mm[Hg] - Sitting 118.00 mm[Hg] - Sitting 98.40 Tympanic 69.00/ min 95093 229 33624 8 78.00 mm[Hg] - Sitting 152.00 mm[Hg] - Sitting 96398 230 91311 0 62.00 mm[Hg] - Sitting 122.00 mm[Hg] - Sitting 67471 231 64324 7 72.00 mm[Hg] - Lying Down 140.00 mm[Hg] - Lying Down 29252 101 84863 3 97.70 Forehead Scan 11907 101 64590 1 254.10 NI 69.00/ min 90961 101 68217 9 72.00 mm[Hg] - Sitting 142.00 mm[Hg] - Sitting 97.70 Tympanic 18.00/min 66908 101 97905 3 72.00 mm[Hg] - Lying Down 142.00 mm[Hg] - Lying Down 19848 102 41505 8 68.00 mm[Hg] - Lying Down 152.00 mm[Hg] - Lying Down 41684 103 38565 5 74.00 mm[Hg] - Sitting 158.00 mm[Hg] - Sitting 48600 104 36835 9 78.00 mm[Hg] - Sitting 144.00 mm[Hg] - Sitting 59801 105 85587 5 68.00 mm[Hg] - Sitting 138.00 mm[Hg] - Sitting 35969 106 42396 1 70.00 mm[Hg] - Sitting 138.00 mm[Hg] - Sitting 10421 107 38234 1 67.00 mm[Hg] - Sitting 142.00 mm[Hg] - Sitting 74879 108 97996 0 74.00 mm[Hg] - Sitting 143.00 mm[Hg] [...]
--- OUTSIDE RECORDS SUMMARY | 2024-07-26 11:19 | External Medical Summary | Continuity Of Care Document ---
Author Name Unknown Address [address] [place] [address] Organization [facility] () Care Team Providers Care Clerk Carrier Name Role Phone DO Pritchett Amy Primary Care Provider [phone] Allergies Allergy Reaction Start Date End Date Status AMINOGLYCOSIDES Active CIPRO Active GENTAMICIN Active NSAIDS (NON-STEROIDAL ANTI-INFLAMMATORY DRUG) 0 Active IBUPROFEN Active QUINOLONES Active VALIUM Active Medications Medication Instructions Dosage Start Date End Date Status Order Date Drug Code Frequency Route of Admin Diagnosis Code Substitutions Allowed Spikevax [id number](1 2y up)(PF) 50 mcg/0.5 mL intramuscul ar suspension [COVID [id number](12 up)(andu)(P F)] 0.5mL Intramuscular 1 time Monitory 15 Minutes post injection for adverse effects; record site/temp For COVID 19 PREVENTION 0.5mL 01/02 Inactiv e 2023 42139 41994 4 1 time Intram uscula r False [facility] - Nurse initials indicate verificatio n that [id number] vaccine was administere d by [facility] Representat jon 1 Intramuscular 1 time ( Indicate vaccine type) For vaccine 1 05/03 Inactiv e 2023 1 time Intram uscula r False Lisinopril 40 mg tablet [generic] TAKE ONE (1) TABLET BY MOUTH IN THE MORNING. For DX- HTN 1 2023 Active 2023 66021 55108 1 Once daily By Mouth False Tizanidine 2 mg tablet [generic] TAKE ONE (1) TABLET BY MOUTH ONCE DAILY For MUSCLE SPASM 1 2023 Active 2023 23897 35072 0 Once daily By Mouth M62.838 False Tamsulosin 0.4 mg capsule [generic] TAKE (1) CAPSULE BY MOUTH AT BEDTIME For SPASMS 1 2023 Active 2023 94349 08807 0 Once daily By Mouth False Aspirin 81 mg tablet Once daily 1 TABLET BY MOUTH IN THE MORNING For DX- CAD DO NOT CRUSH, CHEW OR BREAK 81 mg 06/12 Inactiv e 2023 Once daily By Mouth False Baclofen 20 mg tablet [generic] 20 mg By Mouth 4 times a day For DX- MUSCLE SPASMS 20 mg 12/12 Inactiv e 2023 38277 29958 1 4 times a day By Mouth False Calcium citrate 250 mg tablet Once daily 4 TABLET BY MOUTH For DX- SUPPLEMENT 250 mg calci 12/12 Inactiv e 2023 Once daily By Mouth False Co Q-10 100 mg capsule 100 mg By Mouth Once daily For DX- SUPPLEMENT 100 mg 06/20 Inactiv e 2023 00349 75632 5 Once daily By Mouth False Furosemide 20 mg tablet [generic] 20 mg By Mouth Once daily For DX-CHF 20 mg 12/12 Inactiv e 2023 21031 63092 0 Once daily By Mouth False Gabapentin 300 mg capsule [generic] 300 mg By Mouth 3 times a day For DX- NEUROPATHY 300 mg 12/12 Inactiv e 2023 72006 31426 4 3 times a day By Mouth False Loratadine 10 mg tablet [generic] 10 mg By Mouth Once daily For DX- ALLERGIES 10 mg 2023 Active 2023 03295 85105 1 Once daily By Mouth False Miralax 17 gram/dose oral powder 17 gram/dose By Mouth IN THE MORNING Mix 1 TABLESPOON IN 8 OZ OF FLUID HOLD FOR LOOSE STOOLS For DX- CONSTIPATION 17 gram/do se 12/12 Inactiv e 2023 39897 38650 0 Once daily By Mouth False Paroxetine 30 mg tablet [generic] 30 mg By Mouth Once daily For DX- DEPRESSION 30 mg 2023 00/00 /0000 Active 2023 61004 07825 3 Once daily By Mouth False Potassium citrate ER 15 mEq (1,620 mg) tablet,exte nded release [generic] 15 mEq By Mouth 3 times a day For DX- SUPPLEMENT/DI URETIC USE/ HYPOCITRAUIRA DO NOT CRUSH 15 mEq 12/12 Inactiv e 2023 63798 39497 1 3 times a day By Mouth [...] For DX- DANDRUFF 12/12 Inactiv e 2023 50448 46619 4 3 times a week Topica l False Acetaminoph en 325 mg tablet [generic] TAKE 2 TABS (650MG) BY MOUTH EVERY 4 HOURS NEEDED FOR TEMP >100 NOT TO EXCEED 3GM/24HRS TAKE 2 TABS (650MG) BY MOUTH EVERY 4 HOURS NEEDED FOR TEMP >100 NOT TO EXCEED 3GM/24HRS For DX-FEVER 2 12/12 Inactiv e 2023 19947 59311 0 By Mouth False MILK OF MAGNESIA ADMINISTER 30 ML BY MOUTH ONCE DAILY NEEDED FOR CONSTIPATION X3 DAYS WITH NO BM. For DX- CONSTIPATION 30ML 12/12 Inactiv e 2023 69468 30346 9 By Mouth False Enema Disposable 19 gram-7 gram/118 mL ADMINISTER ONE ENEMA RECTALLY ONCE DAILY NEEDED FOR CONSTIPATION ON DAY 6 OF NO BM For DX- CONSTIPATION 12/12 Inactiv e 2023 15642 33630 1 Rectal False TUMS EXTRA STR 750MG TAKE (1) TABLET BY MOUTH THREE TIMES DAILY NEEDED FOR INDIGESTION For DX- INDIGESTION 1 12/12 Inactiv e 2023 06414 24064 8 By Mouth False Vitamin D3 25 [...] CONSTIPATION 10 mg 12/12 Inactiv e 2023 07568 63307 1 Rectal False Melatonin 3 mg tablet [generic] 3 mg By Mouth As Needed For DX-INSOMMIA 3 mg 12/12 Inactiv e 2023 55143 14935 8 By Mouth False Hydrocortis one 1 % topical cream [generic] 1 % Topical As Needed For DX- PAIN 1 % 12/12 Inactiv e 2023 78213 67027 1 Topica l False HYDROCORTIS ONE/PARMOXI NE [...] 5-10 50 mg 12/20 Inactiv e 2023 82454 92321 0 Every 4 hours as needed By Mouth False Tylenol 325 mg tablet 325 mg By Mouth Every 4 hours as needed For DX- PAIN PRN FOR MILD PAIN, DO NOT EXCEED 3000MG APAP/24 HOURS 325 mg 12/20 Inactiv e 2023 36057 00367 0 Every 4 hours as needed By Mouth False Baclofen 20 mg tablet [generic] 20 mg By Mouth 4 times a day For MUSCLE SPASMS 20 mg 12/20 Inactiv e 2023 01231 06402 1 4 times a day By Mouth False Calcium citrate 250 mg tablet [generic] Once daily TAKE 4 TABLETS (1000MG) BY MOUTH For SUPPLEMENT 1000 MG 06/26 Inactiv e 2023 42973 00254 6 Once daily By Mouth False Dulcolax (bisacodyl) 10 mg rectal suppository 10 mg Rectal Once daily For CONSTIPATION *MAY HOLD FOR LOOSE STOOLS* 10 mg 2023 Active 2023 33618 04487 1 Once daily Rectal False Gabapentin 300 mg capsule [generic] 300 mg By Mouth 3 times a day For NEUROPATHY 300 mg 2023 Active 2023 29610 10084 4 3 times a day By Mouth False Potassium citrate ER 15 mEq (1,620 mg) tablet,exte nded release [generic] 15 mEq By Mouth 3 times a day For SUPPLEMENT/DI URETIC USE/HYPOCITRA URIA 15 mEq 06/11 Inactiv e 2023 81177 35926 1 3 times a day By Mouth False Potassium chloride ER 20 mEq tablet,exte nded release [generic] 20 mEq By Mouth 3 times a day *DO NOT CRUSH, CHEW OR BREAK* For SUPPLEMENT 20 mEq 12/18 Inactiv e 2023 31180 26094 1 3 times a day By Mouth False Tizanidine 4 mg tablet [generic] 4 mg By Mouth Once daily For MUSCLE SPASMS 4 mg 2023 Active 2023 02093 94505 0 Once daily By Mouth False Tylenol 325 mg tablet 2 tabs By Mouth Every 4 hours as needed For Fever >100 DO NOT EXCEED 3000 MG APAP/24 Hours 2 tabs 12/20 Inactiv e 2023 24545 89509 0 Every 4 hours as needed By Mouth False Dulcolax (bisacodyl) 10 mg rectal suppository Daily as needed For Constipation 1 sup 12/20 Inactiv e 2023 20506 79828 1 Daily as needed Rectal False Fleet Enema 19 gram-7 gram/118 mL 1 Rectal Daily as neededFor Constipation 1 12/20 Inactiv e 2023 42942 45152 6 Daily as needed Rectal False Milk of Magnesia 400 mg/5 mL oral suspension [Magnesium hydroxide] PRN 30ml By Mouth Daily as needed for constipation one time daily if no BM, on day 4 of no BM (PRN refer to instructions) For Constipation For Constipatioin 30ml 12/20 Inactiv e 2023 72025 96494 6 1 time By Mouth False Problems [...] adjustment of urinary device 07/21/2023 Active Z79.01 [employer] (current) use of anticoagulants 07/21 Active N31.9 [...] weight Temperature SpO2 Blood Sugar Pulse Respirations 65675 209 69701 2 78.00 mm[Hg] - Sitting 130.00 mm[Hg] - Sitting 22394 210 20411 6 80.00 mm[Hg] - Sitting 132.00 mm[Hg] - Sitting 69052 211 37282 5 78.00 mm[Hg] - Sitting 125.00 mm[Hg] - Sitting 24920 216 85593 1 254.10 [place] [address] 216 27760 2 79.00 mm[Hg] - Sitting 157.00 mm[Hg] - Sitting 73 NI 254.10 NI 36.30 Tympanic 95.00 % 72.00/ min 16.00/min 51445 216 30556 4 98.80 Tympanic 12615 216 62748 2 78.00 mm[Hg] - Sitting 164.00 mm[Hg] - Sitting 01847 217 76315 3 98.20 Tympanic 17616 217 77540 5 73.00 mm[Hg] - Sitting 159.00 mm[Hg] - Sitting 28652 217 81178 9 98.40 Forehead Scan 17849 218 13779 3 97.90 Tympanic 47660 218 42236 5 77.00 mm[Hg] - Sitting 137.00 mm[Hg] - Sitting 32964 219 91525 0 97.70 Tympanic 59683 219 92669 6 97.60 Tympanic 53277 219 99444 4 76.00 mm[Hg] - Sitting 139.00 mm[Hg] - Sitting 84747 219 76727 4 97.80 Forehead Scan 54998 220 75397 9 97.90 Tympanic 67227 220 23282 9 76.00 mm[Hg] - Sitting 138.00 mm[Hg] - Sitting 27889 220 01735 6 98.10 Tympanic 00219 221 12952 5 67.00 mm[Hg] - Sitting 142.00 mm[Hg] - Sitting 39140 221 65069 8 98.20 Tympanic 27371 221 93861 0 98.30 Tympanic 64028 222 37985 7 98.20 Tympanic 13579 222 50357 8 97.90 Tympanic 80447 223 60898 3 98.20 Tympanic 46850 223 30024 3 98.00 Tympanic 05594 224 95840 0 59.00 mm[Hg] - Sitting 111.00 mm[Hg] - Sitting 98.40 Forehead Scan 95.00 % 56.00/ min 18.00/min 65397 224 60539 9 98.20 Forehead Scan 74847 224 60932 3 97.90 Tympanic 82845 225 73966 4 98.20 Tympanic 78965 225 00525 8 97.50 Forehead Scan 04201 228 07698 0 55.00 mm[Hg] - Sitting 118.00 mm[Hg] - Sitting 98.40 Tympanic 69.00/ min 70534 229 44982 8 78.00 mm[Hg] - Sitting 152.00 mm[Hg] - Sitting 42626 230 13040 0 62.00 mm[Hg] - Sitting 122.00 mm[Hg] - Sitting 80254 231 00680 7 72.00 mm[Hg] - Lying Down 140.00 mm[Hg] - Lying Down 32421 101 86640 3 97.70 Forehead Scan 41938 101 82417 1 254.10 NI 69.00/ min 13908 101 68605 9 72.00 mm[Hg] - Sitting 142.00 mm[Hg] - Sitting 97.70 Tympanic 18.00/min 86177 101 98046 3 72.00 mm[Hg] - Lying Down 142.00 mm[Hg] - Lying Down 31972 102 60280 8 68.00 mm[Hg] - Lying Down 152.00 mm[Hg] - Lying Down 42265 103 55643 5 74.00 mm[Hg] - Sitting 158.00 mm[Hg] - Sitting 98822 104 17696 9 78.00 mm[Hg] - Sitting 144.00 mm[Hg] - Sitting 32425 105 37999 5 68.00 mm[Hg] - Sitting 138.00 mm[Hg] - Sitting 97015 106 24237 1 70.00 mm[Hg] - Sitting 138.00 mm[Hg] - Sitting 59086 107 93524 1 67.00 mm[Hg] - Sitting 142.00 mm[Hg] - Sitting 42506 108 83942 0 74.00 mm[Hg] - Sitting 143.00 mm[Hg] [...]
--- OUTSIDE RECORDS SUMMARY | 2024-07-26 11:19 | External Medical Summary | Continuity Of Care Document ---
Author Name Unknown Address [address] [place] [address] Organization [facility] () Care Team Providers Care Personal Injury Legal Assistant Name Role Phone DO Pritchett Amy Primary Care Provider [phone] Allergies Allergy Reaction Start Date End Date Status AMINOGLYCOSIDES Active CIPRO Active GENTAMICIN Active NSAIDS (NON-STEROIDAL ANTI-INFLAMMATORY DRUG) 0 Active IBUPROFEN Active QUINOLONES Active VALIUM Active Medications Medication Instructions Dosage Start Date End Date Status Order Date Drug Code Frequency Route of Admin Diagnosis Code Substitutions Allowed Spikevax [id number](1 2y up)(PF) 50 mcg/0.5 mL intramuscul ar suspension [COVID [id number](12 up)(andu)(P F)] 0.5mL Intramuscular 1 time Monitory 15 Minutes post injection for adverse effects; record site/temp For COVID 19 PREVENTION 0.5mL 01/02 Inactiv e 2023 81927 73920 4 1 time Intram uscula r False [facility] - Nurse initials indicate verificatio n that [id number] vaccine was administere d by [facility] Representat jon 1 Intramuscular 1 time ( Indicate vaccine type) For vaccine 1 05/03 Inactiv e 2023 1 time Intram uscula r False Lisinopril 40 mg tablet [generic] TAKE ONE (1) TABLET BY MOUTH IN THE MORNING. For DX- HTN 1 2023 Active 2023 78557 76542 1 Once daily By Mouth False Tizanidine 2 mg tablet [generic] TAKE ONE (1) TABLET BY MOUTH ONCE DAILY For MUSCLE SPASM 1 2023 Active 2023 60960 75332 0 Once daily By Mouth M62.838 False Tamsulosin 0.4 mg capsule [generic] TAKE (1) CAPSULE BY MOUTH AT BEDTIME For SPASMS 1 2023 Active 2023 34886 99901 0 Once daily By Mouth False Aspirin 81 mg tablet Once daily 1 TABLET BY MOUTH IN THE MORNING For DX- CAD DO NOT CRUSH, CHEW OR BREAK 81 mg 06/12 Inactiv e 2023 Once daily By Mouth False Baclofen 20 mg tablet [generic] 20 mg By Mouth 4 times a day For DX- MUSCLE SPASMS 20 mg 12/12 Inactiv e 2023 85422 63429 1 4 times a day By Mouth False Calcium citrate 250 mg tablet Once daily 4 TABLET BY MOUTH For DX- SUPPLEMENT 250 mg calci 12/12 Inactiv e 2023 Once daily By Mouth False Co Q-10 100 mg capsule 100 mg By Mouth Once daily For DX- SUPPLEMENT 100 mg 06/20 Inactiv e 2023 59832 31400 5 Once daily By Mouth False Furosemide 20 mg tablet [generic] 20 mg By Mouth Once daily For DX-CHF 20 mg 12/12 Inactiv e 2023 12410 45985 0 Once daily By Mouth False Gabapentin 300 mg capsule [generic] 300 mg By Mouth 3 times a day For DX- NEUROPATHY 300 mg 12/12 Inactiv e 2023 91237 59651 4 3 times a day By Mouth False Loratadine 10 mg tablet [generic] 10 mg By Mouth Once daily For DX- ALLERGIES 10 mg 2023 Active 2023 92203 47866 1 Once daily By Mouth False Miralax 17 gram/dose oral powder 17 gram/dose By Mouth IN THE MORNING Mix 1 TABLESPOON IN 8 OZ OF FLUID HOLD FOR LOOSE STOOLS For DX- CONSTIPATION 17 gram/do se 12/12 Inactiv e 2023 31604 42390 0 Once daily By Mouth False Paroxetine 30 mg tablet [generic] 30 mg By Mouth Once daily For DX- DEPRESSION 30 mg 2023 00/00 /0000 Active 2023 83244 50541 3 Once daily By Mouth False Potassium citrate ER 15 mEq (1,620 mg) tablet,exte nded release [generic] 15 mEq By Mouth 3 times a day For DX- SUPPLEMENT/DI URETIC USE/ HYPOCITRAUIRA DO NOT CRUSH 15 mEq 12/12 Inactiv e 2023 88695 27720 1 3 times a day By Mouth [...] For DX- DANDRUFF 12/12 Inactiv e 2023 58581 74834 4 3 times a week Topica l False Acetaminoph en 325 mg tablet [generic] TAKE 2 TABS (650MG) BY MOUTH EVERY 4 HOURS NEEDED FOR TEMP >100 NOT TO EXCEED 3GM/24HRS TAKE 2 TABS (650MG) BY MOUTH EVERY 4 HOURS NEEDED FOR TEMP >100 NOT TO EXCEED 3GM/24HRS For DX-FEVER 2 12/12 Inactiv e 2023 24034 67108 0 By Mouth False MILK OF MAGNESIA ADMINISTER 30 ML BY MOUTH ONCE DAILY NEEDED FOR CONSTIPATION X3 DAYS WITH NO BM. For DX- CONSTIPATION 30ML 12/12 Inactiv e 2023 09092 68256 9 By Mouth False Enema Disposable 19 gram-7 gram/118 mL ADMINISTER ONE ENEMA RECTALLY ONCE DAILY NEEDED FOR CONSTIPATION ON DAY 6 OF NO BM For DX- CONSTIPATION 12/12 Inactiv e 2023 59713 35816 1 Rectal False TUMS EXTRA STR 750MG TAKE (1) TABLET BY MOUTH THREE TIMES DAILY NEEDED FOR INDIGESTION For DX- INDIGESTION 1 12/12 Inactiv e 2023 70604 50430 8 By Mouth False Vitamin D3 25 [...] CONSTIPATION 10 mg 12/12 Inactiv e 2023 20906 65125 1 Rectal False Melatonin 3 mg tablet [generic] 3 mg By Mouth As Needed For DX-INSOMMIA 3 mg 12/12 Inactiv e 2023 55784 03011 8 By Mouth False Hydrocortis one 1 % topical cream [generic] 1 % Topical As Needed For DX- PAIN 1 % 12/12 Inactiv e 2023 90796 27780 1 Topica l False HYDROCORTIS ONE/PARMOXI NE [...] 5-10 50 mg 12/20 Inactiv e 2023 35674 09630 0 Every 4 hours as needed By Mouth False Tylenol 325 mg tablet 325 mg By Mouth Every 4 hours as needed For DX- PAIN PRN FOR MILD PAIN, DO NOT EXCEED 3000MG APAP/24 HOURS 325 mg 12/20 Inactiv e 2023 60251 54327 0 Every 4 hours as needed By Mouth False Baclofen 20 mg tablet [generic] 20 mg By Mouth 4 times a day For MUSCLE SPASMS 20 mg 12/20 Inactiv e 2023 03559 02181 1 4 times a day By Mouth False Calcium citrate 250 mg tablet [generic] Once daily TAKE 4 TABLETS (1000MG) BY MOUTH For SUPPLEMENT 1000 MG 06/26 Inactiv e 2023 92841 61188 6 Once daily By Mouth False Dulcolax (bisacodyl) 10 mg rectal suppository 10 mg Rectal Once daily For CONSTIPATION *MAY HOLD FOR LOOSE STOOLS* 10 mg 2023 Active 2023 76646 54392 1 Once daily Rectal False Gabapentin 300 mg capsule [generic] 300 mg By Mouth 3 times a day For NEUROPATHY 300 mg 2023 Active 2023 95976 31975 4 3 times a day By Mouth False Potassium citrate ER 15 mEq (1,620 mg) tablet,exte nded release [generic] 15 mEq By Mouth 3 times a day For SUPPLEMENT/DI URETIC USE/HYPOCITRA URIA 15 mEq 06/11 Inactiv e 2023 07619 21189 1 3 times a day By Mouth False Potassium chloride ER 20 mEq tablet,exte nded release [generic] 20 mEq By Mouth 3 times a day *DO NOT CRUSH, CHEW OR BREAK* For SUPPLEMENT 20 mEq 12/18 Inactiv e 2023 15978 08891 1 3 times a day By Mouth False Tizanidine 4 mg tablet [generic] 4 mg By Mouth Once daily For MUSCLE SPASMS 4 mg 2023 Active 2023 01099 80939 0 Once daily By Mouth False Tylenol 325 mg tablet 2 tabs By Mouth Every 4 hours as needed For Fever >100 DO NOT EXCEED 3000 MG APAP/24 Hours 2 tabs 12/20 Inactiv e 2023 09426 41684 0 Every 4 hours as needed By Mouth False Dulcolax (bisacodyl) 10 mg rectal suppository Daily as needed For Constipation 1 sup 12/20 Inactiv e 2023 14932 28495 1 Daily as needed Rectal False Fleet Enema 19 gram-7 gram/118 mL 1 Rectal Daily as neededFor Constipation 1 12/20 Inactiv e 2023 65297 07987 6 Daily as needed Rectal False Milk of Magnesia 400 mg/5 mL oral suspension [Magnesium hydroxide] PRN 30ml By Mouth Daily as needed for constipation one time daily if no BM, on day 4 of no BM (PRN refer to instructions) For Constipation For Constipatioin 30ml 12/20 Inactiv e 2023 97639 40251 6 1 time By Mouth False Melatonin 3 mg tablet [generic] 3 mg By Mouth Once daily As Needed For INSOMNIA 3 mg 12/20 Inactiv e 2023 16789 08270 8 Once daily By Mouth False Hydrocortis one 1 % topical cream [generic] 1 % Rectal Four times daily as needed For hemorroid pain 1 % 12/20 Inactiv e 2023 00460 41961 1 Four times daily as needed Rectal False X-STGH ANTACID 750MG CHEW TAKE (1) TABLET BY MOUTH THREE TIMES DAILY NEEDED FOR INDIGESTION 12/20 Inactiv e 2023 35069 99294 4 Three times daily as needed Saline Mist 0.65 % nasal spray aerosol 0.65 % Nares Four times daily as needed For DRYNESS 0.65 % 12/20 Inactiv e 2023 71605 39003 8 Four times daily as needed Nares False Vicks Vaporub 4.7 %-1.2 %-2.6 % topical ointment Apply topically to chest Three times daily as needed For CONGESTION 4.7-1.2 -2.6 12/20 Inactiv e 2023 13811 40307 1 Three times daily as needed Topica l False VITAMIN D3 2000U CAP TAKE ONE (1) CAPSULE BY MOUTH DAILY* DO NOT CRUSH, CHEW OR BREAK* For Supplement 1 capsule 12/19 Inactiv e 2023 66245 14798 0 Once daily By Mouth False Potassium chloride ER 20 mEq tablet,exte nded release(par t/cryst) [generic] TAKE (1) TABLET BY MOUTH THREE TIMES DAILY (MORNING, AFTERNOON, EVENING)*DO NOT CRUSH, CHEW, OR BREAK* For SUPPLEMENT 20 MEQ 06/11 Inactiv e 2023 60583 50584 5 3 times a day By Mouth False Aspirin 81 mg tablet,camron yed release [generic] TAKE ONE (1) TABLET BY MOUTH ONCE DAILY*DO NOT CRUSH, CHEW OR BREAK* For CAD 81 MG 12/22 Inactiv e 2023 39799 15802 0 Once daily By Mouth False Furosemide 20 mg tablet [generic] TAKE 1 AND 1/2 TABLETS (30MG) BY MOUTH ONCE DAILY For CHF 30mg 2023 Active 2023 62059 16726 1 Once daily By Mouth False Polyethylen e glycol 3350 17 gram/dose oral powder [generic] MIX 17 GRAMS (1 CAPFUL) IN 60Z OF LIQUID AND DRINK BY MOUTH ONCE DAILY *HOLD FOR LOOSE STOOLS* For constipation 17 g 2023 Active 2023 32335 25527 3 Once daily By Mouth False Vitamin D3 50 mcg (2,000 unit) capsule Once daily TAKE ONE (1) CAPSULE BY MOUTH DAILY* DO NOT CRUSH, CHEW OR BREAK* For Supplement 1 capsule 02/07 Inactiv e 2023 73131 25530 2 Once daily By Mouth False Fleet Enema 19 gram-7 gram/118 mL 1 Rectal Daily as neededFor Constipation 1 2023 0000 Active 2023 68432 86684 6 Daily as needed Rectal False Tums E-X 300 mg (as calcium carbonate 750 mg) chewable tablet 1 tab By Mouth TAKE (1) TABLET BY MOUTH THREE TIMES DAILY NEEDED FOR INDIGESTION 1 tab 202300 /0000 Active 2023 50970 50396 1 Three times daily as needed By Mouth False Tylenol 325 mg tablet 2 tabs By Mouth Every 4 hours as needed For Fever >100 DO NOT EXCEED 3000 MG APAP/24 Hours 2 tabs 202300 /0000 Active 2023 89513 72167 0 Every 4 hours as needed By Mouth False Vicks Vaporub 4.7 %-1.2 %-2.6 % topical ointment Apply topically to chest Three times daily as needed For CONGESTION topical 202300 Active 2023 33704 64817 1 Three times daily as needed Topica l False Tylenol 325 mg tablet 2 tabs By Mouth Every 4 hours as needed For DX- PAIN PRN FOR MILD PAIN, DO NOT EXCEED 3000MG APAP/24 HOURS 2 tabs 202300 Active 2023 22975 88490 0 Every 4 hours as needed By Mouth False Tramadol 50 mg tablet [generic] 1 tab By Mouth Every 4 hours as needed For DX- PAIN 5-10 1 tab 03/10 Inactiv e 2023 20383 21177 0 Every 4 hours as needed By Mouth False Saline Mist 0.65 % nasal spray aerosol 2 sprays Nares Four times daily as needed For DRYNESS 2 sprays 202300 / Active 2023 24063 35930 8 Four times daily as needed Nares False Dulcolax (bisacodyl) 10 mg rectal suppository Daily as needed For Constipation 1 sup 202300 / Active 2023 95642 21362 1 Daily as needed Rectal False Hydrocortis one-pramoxi ne 1 %-1 % rectal cream [generic] 1 mague Rectal Four times daily as needed For hemorroid pain 1 mague 202300 /0000 Active 2023 89193 86056 4 Four times daily as needed Rectal False Melatonin 3 mg tablet [generic] 1 tab By Mouth At bedtime as needed For INSOMNIA 1 tab 12/24 Inactiv e 2023 44041 98469 8 At bedtime as needed By Mouth False Milk of Magnesia 400 mg/5 mL oral suspension 30ml By Mouth Daily as needed Daily as needed for constipation one time daily if no BM, on day 4 of no BM (PRN refer to instructions) For Constipation For Constipatioin 30ml 2023 Active 2023 64833 87459 2 Daily as needed By Mouth False Baclofen 20 mg tablet [generic] 20 mg By Mouth 4 times a day For MUSCLE SPASMS 20 mg 2023 Active 2023 83814 04762 1 4 times a day By Mouth False Melatonin 3 mg tablet [generic] 1 tab By Mouth At bedtime as needed For INSOMNIA 1 tab 2023 Active 2023 88285 48879 8 At bedtime as needed By Mouth False Bactrim DS 800 mg-160 mg tablet 1 tab By Mouth Twice daily For URINARY TRACT INFECTION, SITE NOT SPECIFIED 1 tab 01/06 Inactiv e 2023 31410 23052 1 Twice daily By Mouth N39.0 False Cefdinir 300 mg capsule [generic] 300 mg By Mouth Twice daily For UTI 300 mg 01/07 Inactiv e 2023 17506 74081 0 Twice daily By Mouth False Cefdinir 300 mg capsule [generic] 300 mg By Mouth Twice daily For UTI 300 mg 01/17 Inactiv e 2023 77042 50582 0 Twice daily By Mouth False Zyrtec 10 mg tablet 10 mg By Mouth Once daily For sinus congestion 10 mg 01/22 Inactiv e 2023 92538 71672 0 Once daily By Mouth False Tobramycin 0.3 %-dexametha sone 0.1 % eye drops,suspe nsion [generic] 0.3-0.1 % Left Eye 4 times a day For eye infection 0.3-0.1 % 02/05 Inactiv e 2023 41355 92079 5 4 times a day Left Eye False Fluconazole 150 mg tablet [generic] 150 mg By Mouth 1 time For yeast infection 150 mg 02/15 Inactiv e 2023 56356 90256 2 1 time By Mouth False Tramadol 50 mg tablet [generic] 1 tab By Mouth Every 4 hours as needed For DX- PAIN 5-10 1 tab 2023 00/00 /0000 Active 2023 43139 34617 0 Every 4 hours as needed By Mouth False Tobramycin 0.3 %-dexametha sone 0.1 % eye drops,suspe nsion [generic] 1 drop Left Eye 4 times a day For Inflammation of left eye 1 drop 05/08 Inactiv e 2023 64876 03319 5 4 times a day Left Eye False Voltaren Arthritis Pain 1 % topical gel 2 gm Topical Twice daily to rigth shoulder for 2 weeks For pain 2 gm 05/08 Inactiv e 2023 37948 51499 1 Twice daily Topica l False Chlorthalid one 25 mg tablet [generic] 12.5mg By Mouth Once daily For HTN 12.5mg 05/06 Inactiv e 2023 25595 53983 0 Once daily By Mouth False Chlorthalid one 25 mg tablet [generic] 12.5mg By Mouth Once daily For HTN 12.5mg 05/07 Inactiv e 2023 71082 90129 0 Once daily By Mouth False Chlorthalid one 25 mg tablet [generic] 05/07 Inactiv e 2023 18058 55993 0 Chlorthalid one 25 mg tablet [generic] 12.5mg By Mouth Once daily For HTN 12.5mg 06/26 Inactiv e 2023 82037 68738 0 Once daily By Mouth False Norvasc 5 mg tablet 5mg By Mouth Once daily, hold medication if systolic is less than 90 For HYPERTENSIVE HEART DISEASE WITHOUT HEART FAILURE 5mg 06/03 Inactiv e 2023 32223 95796 1 Once daily By Mouth I11.9 False Norvasc 5 mg tablet 5mg By Mouth Once daily, hold medication if systolic is less than 90 For HYPERTENSIVE HEART DISEASE WITHOUT HEART FAILURE 5mg 06/03 Inactiv e 2023 26253 89679 1 Once daily By Mouth I11.9 False Norvasc 5 mg tablet 5mg By Mouth Once daily, hold medication if systolic is less than 90 For HYPERTENSIVE HEART DISEASE WITHOUT HEART FAILURE 5mg 06/26 Inactiv e 2023 36221 59934 1 Once daily By Mouth I11.9 False [...] 10 mg 2023 00/00 /0000 Active 2023 99060 79860 1 Once daily By Mouth False DISCONTINUE [...] CAD 81 mg 06/14 Inactiv e 2023 58489 24574 9 Once daily By Mouth False Aspirin 81 mg tablet,camron yed release [generic] 06/14 Inactiv e 2023 20466 50156 9 Aspirin 81 mg tablet,camron yed release [generic] 81 mg By Mouth Once daily Do not crush, chew, or break For CAD 81 mg 06/154 Inactiv e 2023 99746 51893 9 Once daily By Mouth False Cefpodoxime 200 mg tablet [generic] 200mg By Mouth Twice daily For UTI 200mg 07/04 Inactiv e 2023 45840 99970 0 Twice daily By Mouth False Calcium citrate 250 mg tablet [generic] 06/26 Inactiv e 2023 69908 81928 6 Calcium citrate 250 mg tablet [generic] Once daily TAKE 4 TABLETS (1000MG) BY MOUTH For SUPPLEMENT 500 MG 2023 Active 2023 75736 47918 6 Once daily By Mouth False Norvasc 5 mg tablet 7.5 mg By Mouth Once daily Hold medication if SBP <90 For HYPERTENSIVE HEART DISEASE WITHOUT HEART FAILURE 7.5 mg 06/30 Inactiv e 2023 37148 65720 1 Once daily By Mouth I11.9 False Norvasc 5 mg tablet 7.5 mg By Mouth Once daily Hold medication if SBP <90 For HYPERTENSIVE HEART DISEASE WITHOUT HEART FAILURE 7.5 mg 07/06 Inactiv e 2023 69420 78602 1 Once daily By Mouth I11.9 False Simethicone 125 mg capsule [generic] 2 capule By Mouth Twice daily as needed For bloating/gas pain 2 capule 2023 Active 2023 01861 26320 0 Twice daily as needed By Mouth False Cepacol Sore Throat (benzocaine -menthol) 15 mg-2.6 mg lozenges 2 lozenges By Mouth Every 6 hours as needed For sore throat 2 lozenge s 2023 Active 2023 33815 59897 6 Every 6 hours as needed By Mouth False Cefepime 1 gram solution for injection [generic] 1g Intramuscular Every 12 hours 1g intramuscular ly ever 12 hours For UTI 1g 07/06 Inactiv e 2023 23514 54831 4 Every 12 hours Intram uscula r False Cefepime 1 gram solution for injection [generic] 07/06 Inactiv e 2023 94836 65566 4 Cefepime 1 gram solution for injection [generic] 1g Intramuscular Every 12 hours 1g intramuscular ly ever 12 hours For UTI Reconstitute with 2.4 ML of NSS. 1g 07/08 Inactiv e 2023 89460 47556 4 Every 12 hours Intram uscula r False Norvasc 5 mg tablet 07/06 Inactiv e 2023 80905 36138 1 I11.9 Norvasc 5 mg tablet 7.5 mg By Mouth Once daily Hold medication if SBP <90 For HYPERTENSIVE HEART DISEASE WITHOUT HEART FAILURE 7.5 mg 07/18 Inactiv e 2023 64543 08090 1 Once daily By Mouth I11.9 False Cefepime 1 gram solution for injection [generic] 07/08 Inactiv e 2023 56637 53879 4 Cefepime 1 gram solution for injection [generic] 1g Intramuscular Every 12 hours 1g intramuscular ly ever 12 hours For UTI Reconstitute with 2.4 ML of NSS. 1g 07/08 Inactiv e 2023 92931 24537 4 Every 12 hours Intram uscula r False Cefepime 1 gram solution for injection [generic] 07/08 Inactiv e 2023 82667 07756 4 Cefepime 1 gram solution for injection [generic] 1g Intramuscular Every 12 hours 1g intramuscular ly ever 12 hours For UTI Reconstitute with 2.4 ML of NSS. 1g 07/11 Inactiv e 2023 05549 26830 4 Every 12 hours Intram uscula r False Fleet Enema 19 gram-7 gram/118 mL 1 Rectal 1 time For constipation 1 07/16 Inactiv e 2024 79345 66910 6 1 time Rectal False Fleet Enema 19 gram-7 gram/118 mL 1 Rectal 1 time For constipation 1 07/17 Inactiv e 2024 20190 12312 6 1 time Rectal False Norvasc 5 mg tablet 7.5 mg By Mouth Once daily For HYPERTENSIVE HEART DISEASE WITHOUT HEART FAILURE 7.5 mg 2024 Active 2024 58928 08343 1 Once daily By Mouth I11.9 False Potassium chloride ER 20 mEq tablet,exte nded release(par t/cryst) [generic] 40 mEq By Mouth 1 time For low potassium prior to surgery 40 mEq 07/18 Inactiv e 2024 96998 34785 1 1 time By Mouth False Potassium chloride ER 20 mEq tablet,exte nded release(par t/cryst) [generic] 40 mEq By Mouth 1 time For low potassium prior to surgery 40 mEq 07/18 Inactiv e 2024 95736 47015 1 1 time By Mouth False Potassium chloride ER 20 mEq tablet,exte nded release(par t/cryst) [generic] 40 mEq By Mouth 1 time For low potassium 40 mEq 07/18 Inactiv e 2024 06781 33721 1 1 time By Mouth False Potassium chloride ER 20 mEq tablet,exte nded release(par t/cryst) [generic] 40 mEq By Mouth 1 time For low potassium 40 mEq 2024 Active 2024 86768 93422 1 1 time By Mouth False Nystatin 100,000 unit/gram topical cream [generic] 100,000 unit Topical As Needed For DX- EXCORIATION 100,000 unit 12/12 Inactiv e 2023 17690 80690 5 Topica l False Vicks Vaporub 4.7 %-1.2 %-2.6 % topical ointment 4.7-1.2-2.6 Topical 3 times a day As Needed For DX- CONGESTION 4.7-1.2 -2.6 12/12 Inactiv e 2023 15305 39794 1 3 times a day Topica l False Ketoconazol e 2 % shampoo [generic] APPLY SHAMPOO TOPICALLY TO SCALP DURING HAIR WASHINGDX: ELVIA DERM OF SCALP For DX- ELVIA DERM OF SCALP 12/12 Inactiv e 2023 87547 60649 4 Topica l False THERA SILICONE SKIN GUARD Topical Twice daily 1 APPLICATION TOPICALLY IN THE MORNING AND AT BEDTIME TO SCROTUM For DX- PREVENTION 2023 Active 2023 Twice daily Topica l False Selenium sulfide 2.5 % lotion [generic] 2.5 % Topical EVERY MONDAY, MONDAY AND MONDAY AFTER SHOWER For DANDRUFF 2.5 % 2023 Active 2023 70718 74095 4 3 times a week Topica l False Nystatin (bulk) 100 million unit powder [generic] 100 million Topical Twice daily as needed For EXOCORATION 100 million 12/20 Inactiv e 2023 86795 87061 1 Twice daily as needed Topica l False Ketoconazol e 2 % shampoo [generic] Once daily APPLY SHAMPOO TOPICALLY TO SCALP DURING HAIR WASHING ON SHOWER DAYS- , , MON For ELVIA DERM OF SCAP 2 % 2023 Active 2023 15121 81611 4 Once daily Topica l False Nystatin 100,000 unit/gram topical cream [generic] 1 mague Topical Twice daily as needed For EXOCORATION 1 mague 06/05 Inactiv e 2023 71868 56227 5 Twice daily as needed Topica l False Nystatin 100,000 unit/gram topical powder [generic] 100,000 unit Topical Twice daily to scrotum with AM and PM care For Scrotal excoriation 100,000 unit 06/05 Inactiv e 2023 85513 63155 5 Twice daily Topica l False Problems [...] adjustment 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 07/21 Active N31.9 [...] Temperature SpO2 Blood Sugar Pulse Respirations 210 97577 6 80.00 mm[Hg] - Sitting 132.00 mm[Hg] - Sitting 211 45715 5 78.00 mm[Hg] - Sitting 125.00 mm[Hg] - Sitting 216 04427 1 254[place]10 [place] [address] 216 96939 2 79.00 mm[Hg] - Sitting 157.00 mm[Hg] - Sitting 73 NI 254.10 NI 36.30 Tympanic 95.00 % 72.00/ min 16.00/min 216 06404 4 98.80 Tympanic 49929 216 15377 2 78.00 mm[Hg] - Sitting 164.00 mm[Hg] - Sitting 67619 217 54967 3 98.20 Tympanic 96171 217 95274 5 73.00 mm[Hg] - Sitting 159.00 mm[Hg] - Sitting 84809 217 53160 9 98.40 Forehead Scan 19584 218 88543 3 97.90 Tympanic 12746 218 55707 5 77.00 mm[Hg] - Sitting 137.00 mm[Hg] - Sitting 74676 219 93527 0 97.70 Tympanic 99267 219 37500 6 97.60 Tympanic 17605 219 93304 4 76.00 mm[Hg] - Sitting 139.00 mm[Hg] - Sitting 72567 219 04101 4 97.80 Forehead Scan 55237 220 41812 9 97.90 Tympanic 15357 220 50046 9 76.00 mm[Hg] - Sitting 138.00 mm[Hg] - Sitting 95323 220 55370 6 98.10 Tympanic 19772 221 87895 5 67.00 mm[Hg] - Sitting 142.00 mm[Hg] - Sitting 04970 221 49024 8 98.20 Tympanic 38986 221 23912 0 98.30 Tympanic 14260 222 24109 7 98.20 Tympanic 57280 222 81260 8 97.90 Tympanic 93758 223 27145 3 98.20 Tympanic 21780 223 86379 3 98.00 Tympanic 32478 224 22103 0 59.00 mm[Hg] - Sitting 111.00 mm[Hg] - Sitting 98.40 Forehead Scan 95.00 % 56.00/ min 18.00/min 14785 224 01837 9 98.20 Forehead Scan 69027 224 81581 3 97.90 Tympanic 80546 225 25977 4 98.20 Tympanic 19989 225 31182 8 97.50 Forehead Scan 80076 228 61045 0 55.00 mm[Hg] - Sitting 118.00 mm[Hg] - Sitting 98.40 Tympanic 69.00/ min 36729 229 61743 8 78.00 mm[Hg] - Sitting 152.00 mm[Hg] - Sitting 38099 230 92371 0 62.00 mm[Hg] - Sitting 122.00 mm[Hg] - Sitting 31416 231 97034 7 72.00 mm[Hg] - Lying Down 140.00 mm[Hg] - Lying Down 19619 101 05620 3 97.70 Forehead Scan 27901 101 34697 1 254.10 NI 69.00/ min 09699 101 96436 9 72.00 mm[Hg] - Sitting 142.00 mm[Hg] - Sitting 97.70 Tympanic 18.00/min 14315 101 61963 3 72.00 mm[Hg] - Lying Down 142.00 mm[Hg] - Lying Down 33650 102 93028 8 68.00 mm[Hg] - Lying Down 152.00 mm[Hg] - Lying Down 36226 103 74992 5 74.00 mm[Hg] - Sitting 158.00 mm[Hg] - Sitting 53732 104 46747 9 78.00 mm[Hg] - Sitting 144.00 mm[Hg] - Sitting 05952 105 52321 5 68.00 mm[Hg] - Sitting 138.00 mm[Hg] - Sitting 08182 106 34328 1 70.00 mm[Hg] - Sitting 138.00 mm[Hg] - Sitting 75813 107 93570 1 67.00 mm[Hg] - Sitting 142.00 mm[Hg] - Sitting 29499 108 61822 0 74.00 mm[Hg] - Sitting 143.00 mm[Hg] [...]
--- OUTSIDE RECORDS SUMMARY | 2024-07-26 11:19 | External Medical Summary | Continuity Of Care Document ---
Author Name Unknown Address [address] [place] [address] Organization [facility] () Care Team Providers Care Telephoto Installer Name Role Phone DO Pritchett Amy Primary Care Provider [phone] Allergies Allergy Reaction Start Date End Date Status AMINOGLYCOSIDES Active CIPRO Active GENTAMICIN Active NSAIDS (NON-STEROIDAL ANTI-INFLAMMATORY DRUG) 0 Active IBUPROFEN Active QUINOLONES Active VALIUM Active Medications Medication Instructions Dosage Start Date End Date Status Order Date Drug Code Frequency Route of Admin Diagnosis Code Substitutions Allowed Spikevax [id number](1 2y up)(PF) 50 mcg/0.5 mL intramuscul ar suspension [COVID [id number](12 up)(andu)(P F)] 0.5mL Intramuscular 1 time Monitory 15 Minutes post injection for adverse effects; record site/temp For COVID 19 PREVENTION 0.5mL 01/02 Inactiv e 2023 78732 11967 4 1 time Intram uscula r False [facility] - Nurse initials indicate verificatio n that [id number] vaccine was administere d by [facility] jon 1 Intramuscular 1 time ( Indicate vaccine type) For vaccine 1 05/03 Inactiv e 2023 1 time Intram uscula r False Lisinopril 40 mg tablet [generic] TAKE ONE (1) TABLET BY MOUTH IN THE MORNING. For DX- HTN 1 2023 Active 2023 72006 77637 1 Once daily By Mouth False Tizanidine 2 mg tablet [generic] TAKE ONE (1) TABLET BY MOUTH ONCE DAILY For MUSCLE SPASM 1 2023 Active 2023 79693 16648 0 Once daily By Mouth M62.838 False Tamsulosin 0.4 mg capsule [generic] TAKE (1) CAPSULE BY MOUTH AT BEDTIME For SPASMS 1 2023 Active 2023 38202 75434 0 Once daily By Mouth False Aspirin 81 mg tablet Once daily 1 TABLET BY MOUTH IN THE MORNING For DX- CAD DO NOT CRUSH, CHEW OR BREAK 81 mg 06/12 Inactiv e 2023 Once daily By Mouth False Baclofen 20 mg tablet [generic] 20 mg By Mouth 4 times a day For DX- MUSCLE SPASMS 20 mg 12/12 Inactiv e 2023 68272 05274 1 4 times a day By Mouth False Calcium citrate 250 mg tablet Once daily 4 TABLET BY MOUTH For DX- SUPPLEMENT 250 mg calci 12/12 Inactiv e 2023 Once daily By Mouth False Co Q-10 100 mg capsule 100 mg By Mouth Once daily For DX- SUPPLEMENT 100 mg 06/20 Inactiv e 2023 31042 94833 5 Once daily By Mouth False Furosemide 20 mg tablet [generic] 20 mg By Mouth Once daily For DX-CHF 20 mg 12/12 Inactiv e 2023 46350 31736 0 Once daily By Mouth False Gabapentin 300 mg capsule [generic] 300 mg By Mouth 3 times a day For DX- NEUROPATHY 300 mg 12/12 Inactiv e 2023 60911 68068 4 3 times a day By Mouth False Loratadine 10 mg tablet [generic] 10 mg By Mouth Once daily For DX- ALLERGIES 10 mg 2023 Active 2023 99843 81516 1 Once daily By Mouth False Miralax 17 gram/dose oral powder 17 gram/dose By Mouth IN THE MORNING Mix 1 TABLESPOON IN 8 OZ OF FLUID HOLD FOR LOOSE STOOLS For DX- CONSTIPATION 17 gram/do se 12/12 Inactiv e 2023 93508 10137 0 Once daily By Mouth False Paroxetine 30 mg tablet [generic] 30 mg By Mouth Once daily For DX- DEPRESSION 30 mg 2023 00/00 /0000 Active 2023 04233 31150 3 Once daily By Mouth False Potassium citrate ER 15 mEq (1,620 mg) tablet,exte nded release [generic] 15 mEq By Mouth 3 times a day For DX- SUPPLEMENT/DI URETIC USE/ HYPOCITRAUIRA DO NOT CRUSH 15 mEq 12/12 Inactiv e 2023 61078 80332 1 3 times a day By Mouth [...] For DX- DANDRUFF 12/12 Inactiv e 2023 97926 40249 4 3 times a week Topica l False Acetaminoph en 325 mg tablet [generic] TAKE 2 TABS (650MG) BY MOUTH EVERY 4 HOURS NEEDED FOR TEMP >100 NOT TO EXCEED 3GM/24HRS TAKE 2 TABS (650MG) BY MOUTH EVERY 4 HOURS NEEDED FOR TEMP >100 NOT TO EXCEED 3GM/24HRS For DX-FEVER 2 12/12 Inactiv e 2023 31632 48878 0 By Mouth False MILK OF MAGNESIA ADMINISTER 30 ML BY MOUTH ONCE DAILY NEEDED FOR CONSTIPATION X3 DAYS WITH NO BM. For DX- CONSTIPATION 30ML 12/12 Inactiv e 2023 81550 92201 9 By Mouth False Enema Disposable 19 gram-7 gram/118 mL ADMINISTER ONE ENEMA RECTALLY ONCE DAILY NEEDED FOR CONSTIPATION ON DAY 6 OF NO BM For DX- CONSTIPATION 12/12 Inactiv e 2023 31776 90842 1 Rectal False TUMS EXTRA STR 750MG TAKE (1) TABLET BY MOUTH THREE TIMES DAILY NEEDED FOR INDIGESTION For DX- INDIGESTION 1 12/12 Inactiv e 2023 28999 09740 8 By Mouth False Vitamin D3 25 [...] CONSTIPATION 10 mg 12/12 Inactiv e 2023 43714 74424 1 Rectal False Melatonin 3 mg tablet [generic] 3 mg By Mouth As Needed For DX-INSOMMIA 3 mg 12/12 Inactiv e 2023 49741 42232 8 By Mouth False Hydrocortis one 1 % topical cream [generic] 1 % Topical As Needed For DX- PAIN 1 % 12/12 Inactiv e 2023 88114 76435 1 Topica l False HYDROCORTIS ONE/PARMOXI NE [...] 5-10 50 mg 12/20 Inactiv e 2023 80053 10350 0 Every 4 hours as needed By Mouth False Tylenol 325 mg tablet 325 mg By Mouth Every 4 hours as needed For DX- PAIN PRN FOR MILD PAIN, DO NOT EXCEED 3000MG APAP/24 HOURS 325 mg 12/20 Inactiv e 2023 84615 89611 0 Every 4 hours as needed By Mouth False Baclofen 20 mg tablet [generic] 20 mg By Mouth 4 times a day For MUSCLE SPASMS 20 mg 12/20 Inactiv e 2023 24833 89091 1 4 times a day By Mouth False Calcium citrate 250 mg tablet [generic] Once daily TAKE 4 TABLETS (1000MG) BY MOUTH For SUPPLEMENT 1000 MG 06/26 Inactiv e 2023 59098 06138 6 Once daily By Mouth False Dulcolax (bisacodyl) 10 mg rectal suppository 10 mg Rectal Once daily For CONSTIPATION *MAY HOLD FOR LOOSE STOOLS* 10 mg 2023 Active 2023 66093 64103 1 Once daily Rectal False Gabapentin 300 mg capsule [generic] 300 mg By Mouth 3 times a day For NEUROPATHY 300 mg 2023 Active 2023 07760 32344 4 3 times a day By Mouth False Potassium citrate ER 15 mEq (1,620 mg) tablet,exte nded release [generic] 15 mEq By Mouth 3 times a day For SUPPLEMENT/DI URETIC USE/HYPOCITRA URIA 15 mEq 06/11 Inactiv e 2023 72983 46360 1 3 times a day By Mouth False Potassium chloride ER 20 mEq tablet,exte nded release [generic] 20 mEq By Mouth 3 times a day *DO NOT CRUSH, CHEW OR BREAK* For SUPPLEMENT 20 mEq 12/18 Inactiv e 2023 26653 48572 1 3 times a day By Mouth False Tizanidine 4 mg tablet [generic] 4 mg By Mouth Once daily For MUSCLE SPASMS 4 mg 2023 Active 2023 89148 32048 0 Once daily By Mouth False Tylenol 325 mg tablet 2 tabs By Mouth Every 4 hours as needed For Fever >100 DO NOT EXCEED 3000 MG APAP/24 Hours 2 tabs 12/20 Inactiv e 2023 10452 41348 0 Every 4 hours as needed By Mouth False Dulcolax (bisacodyl) 10 mg rectal suppository Daily as needed For Constipation 1 sup 12/20 Inactiv e 2023 02720 79623 1 Daily as needed Rectal False Fleet Enema 19 gram-7 gram/118 mL 1 Rectal Daily as neededFor Constipation 1 12/20 Inactiv e 2023 05371 76500 6 Daily as needed Rectal False Milk of Magnesia 400 mg/5 mL oral suspension [Magnesium hydroxide] PRN 30ml By Mouth Daily as needed for constipation one time daily if no BM, on day 4 of no BM (PRN refer to instructions) For Constipation For Constipatioin 30ml 12/20 Inactiv e 2023 77701 24514 6 1 time By Mouth False Melatonin 3 mg tablet [generic] 3 mg By Mouth Once daily As Needed For INSOMNIA 3 mg 12/20 Inactiv e 2023 16274 13903 8 Once daily By Mouth False Hydrocortis one 1 % topical cream [generic] 1 % Rectal Four times daily as needed For hemorroid pain 1 % 12/20 Inactiv e 2023 99276 97543 1 Four times daily as needed Rectal False X-STGH ANTACID 750MG CHEW TAKE (1) TABLET BY MOUTH THREE TIMES DAILY NEEDED FOR INDIGESTION 12/20 Inactiv e 2023 20041 34365 4 Three times daily as needed Saline Mist 0.65 % nasal spray aerosol 0.65 % Nares Four times daily as needed For DRYNESS 0.65 % 12/20 Inactiv e 2023 87275 32060 8 Four times daily as needed Nares False Vicks Vaporub 4.7 %-1.2 %-2.6 % topical ointment Apply topically to chest Three times daily as needed For CONGESTION 4.7-1.2 -2.6 12/20 Inactiv e 2023 34702 65784 1 Three times daily as needed Topica l False VITAMIN D3 2000U CAP TAKE ONE (1) CAPSULE BY MOUTH DAILY* DO NOT CRUSH, CHEW OR BREAK* For Supplement 1 capsule 12/19 Inactiv e 2023 53839 79234 0 Once daily By Mouth False Potassium chloride ER 20 mEq tablet,exte nded release(par t/cryst) [generic] TAKE (1) TABLET BY MOUTH THREE TIMES DAILY (MORNING, AFTERNOON, EVENING)*DO NOT CRUSH, CHEW, OR BREAK* For SUPPLEMENT 20 MEQ 06/11 Inactiv e 2023 37223 20390 5 3 times a day By Mouth False Aspirin 81 mg tablet,camron yed release [generic] TAKE ONE (1) TABLET BY MOUTH ONCE DAILY*DO NOT CRUSH, CHEW OR BREAK* For CAD 81 MG 12/22 Inactiv e 2023 14002 66434 0 Once daily By Mouth False Furosemide 20 mg tablet [generic] TAKE 1 AND 1/2 TABLETS (30MG) BY MOUTH ONCE DAILY For CHF 30mg 2023 Active 2023 37122 48268 1 Once daily By Mouth False Polyethylen e glycol 3350 17 gram/dose oral powder [generic] MIX 17 GRAMS (1 CAPFUL) IN 60Z OF LIQUID AND DRINK BY MOUTH ONCE DAILY *HOLD FOR LOOSE STOOLS* For constipation 17 g 2023 Active 2023 52658 35936 3 Once daily By Mouth False Vitamin D3 50 mcg (2,000 unit) capsule Once daily TAKE ONE (1) CAPSULE BY MOUTH DAILY* DO NOT CRUSH, CHEW OR BREAK* For Supplement 1 capsule 02/07 Inactiv e 2023 39508 27594 2 Once daily By Mouth False Fleet Enema 19 gram-7 gram/118 mL 1 Rectal Daily as neededFor Constipation 1 2023 0000 Active 2023 65846 37962 6 Daily as needed Rectal False Tums E-X 300 mg (as calcium carbonate 750 mg) chewable tablet 1 tab By Mouth TAKE (1) TABLET BY MOUTH THREE TIMES DAILY NEEDED FOR INDIGESTION 1 tab 202300 /0000 Active 2023 09674 51981 1 Three times daily as needed By Mouth False Tylenol 325 mg tablet 2 tabs By Mouth Every 4 hours as needed For Fever >100 DO NOT EXCEED 3000 MG APAP/24 Hours 2 tabs 202300 /0000 Active 2023 06816 83367 0 Every 4 hours as needed By Mouth False Vicks Vaporub 4.7 %-1.2 %-2.6 % topical ointment Apply topically to chest Three times daily as needed For CONGESTION topical 202300 Active 2023 19864 76296 1 Three times daily as needed Topica l False Tylenol 325 mg tablet 2 tabs By Mouth Every 4 hours as needed For DX- PAIN PRN FOR MILD PAIN, DO NOT EXCEED 3000MG APAP/24 HOURS 2 tabs 202300 Active 2023 26171 83676 0 Every 4 hours as needed By Mouth False Tramadol 50 mg tablet [generic] 1 tab By Mouth Every 4 hours as needed For DX- PAIN 5-10 1 tab 03/10 Inactiv e 2023 05762 55669 0 Every 4 hours as needed By Mouth False Saline Mist 0.65 % nasal spray aerosol 2 sprays Nares Four times daily as needed For DRYNESS 2 sprays 202300 / Active 2023 94562 37998 8 Four times daily as needed Nares False Dulcolax (bisacodyl) 10 mg rectal suppository Daily as needed For Constipation 1 sup 202300 / Active 2023 19727 04932 1 Daily as needed Rectal False Hydrocortis one-pramoxi ne 1 %-1 % rectal cream [generic] 1 mague Rectal Four times daily as needed For hemorroid pain 1 mague 202300 /0000 Active 2023 43881 74209 4 Four times daily as needed Rectal False Melatonin 3 mg tablet [generic] 1 tab By Mouth At bedtime as needed For INSOMNIA 1 tab 12/24 Inactiv e 2023 85022 19271 8 At bedtime as needed By Mouth False Milk of Magnesia 400 mg/5 mL oral suspension 30ml By Mouth Daily as needed Daily as needed for constipation one time daily if no BM, on day 4 of no BM (PRN refer to instructions) For Constipation For Constipatioin 30ml 2023 Active 2023 38388 37425 2 Daily as needed By Mouth False Baclofen 20 mg tablet [generic] 20 mg By Mouth 4 times a day For MUSCLE SPASMS 20 mg 2023 Active 2023 90474 84763 1 4 times a day By Mouth False Melatonin 3 mg tablet [generic] 1 tab By Mouth At bedtime as needed For INSOMNIA 1 tab 2023 Active 2023 81969 17568 8 At bedtime as needed By Mouth False Bactrim DS 800 mg-160 mg tablet 1 tab By Mouth Twice daily For URINARY TRACT INFECTION, SITE NOT SPECIFIED 1 tab 01/06 Inactiv e 2023 00674 06559 1 Twice daily By Mouth N39.0 False Cefdinir 300 mg capsule [generic] 300 mg By Mouth Twice daily For UTI 300 mg 01/07 Inactiv e 2023 12168 06713 0 Twice daily By Mouth False Cefdinir 300 mg capsule [generic] 300 mg By Mouth Twice daily For UTI 300 mg 01/17 Inactiv e 2023 68913 43183 0 Twice daily By Mouth False Zyrtec 10 mg tablet 10 mg By Mouth Once daily For sinus congestion 10 mg 01/22 Inactiv e 2023 02990 53029 0 Once daily By Mouth False Tobramycin 0.3 %-dexametha sone 0.1 % eye drops,suspe nsion [generic] 0.3-0.1 % Left Eye 4 times a day For eye infection 0.3-0.1 % 02/05 Inactiv e 2023 43067 84593 5 4 times a day Left Eye False Fluconazole 150 mg tablet [generic] 150 mg By Mouth 1 time For yeast infection 150 mg 02/15 Inactiv e 2023 84025 17277 2 1 time By Mouth False Tramadol 50 mg tablet [generic] 1 tab By Mouth Every 4 hours as needed For DX- PAIN 5-10 1 tab 2023 00/00 /0000 Active 2023 04753 68621 0 Every 4 hours as needed By Mouth False Tobramycin 0.3 %-dexametha sone 0.1 % eye drops,suspe nsion [generic] 1 drop Left Eye 4 times a day For Inflammation of left eye 1 drop 05/08 Inactiv e 2023 05225 15720 5 4 times a day Left Eye False Voltaren Arthritis Pain 1 % topical gel 2 gm Topical Twice daily to rigth shoulder for 2 weeks For pain 2 gm 05/08 Inactiv e 2023 09486 15780 1 Twice daily Topica l False Chlorthalid one 25 mg tablet [generic] 12.5mg By Mouth Once daily For HTN 12.5mg 05/06 Inactiv e 2023 42004 83158 0 Once daily By Mouth False Chlorthalid one 25 mg tablet [generic] 12.5mg By Mouth Once daily For HTN 12.5mg 05/07 Inactiv e 2023 18218 83839 0 Once daily By Mouth False Chlorthalid one 25 mg tablet [generic] 05/07 Inactiv e 2023 02187 27554 0 Chlorthalid one 25 mg tablet [generic] 12.5mg By Mouth Once daily For HTN 12.5mg 06/26 Inactiv e 2023 42381 80719 0 Once daily By Mouth False Norvasc 5 mg tablet 5mg By Mouth Once daily, hold medication if systolic is less than 90 For HYPERTENSIVE HEART DISEASE WITHOUT HEART FAILURE 5mg 06/03 Inactiv e 2023 17436 80828 1 Once daily By Mouth I11.9 False Norvasc 5 mg tablet 5mg By Mouth Once daily, hold medication if systolic is less than 90 For HYPERTENSIVE HEART DISEASE WITHOUT HEART FAILURE 5mg 06/03 Inactiv e 2023 21473 86101 1 Once daily By Mouth I11.9 False Norvasc 5 mg tablet 5mg By Mouth Once daily, hold medication if systolic is less than 90 For HYPERTENSIVE HEART DISEASE WITHOUT HEART FAILURE 5mg 06/26 Inactiv e 2023 28943 93714 1 Once daily By Mouth I11.9 False [...] 10 mg 2023 00/00 /0000 Active 2023 34257 27577 1 Once daily By Mouth False DISCONTINUE [...] CAD 81 mg 06/14 Inactiv e 2023 68457 49997 9 Once daily By Mouth False Aspirin 81 mg tablet,camron yed release [generic] 06/14 Inactiv e 2023 23047 66069 9 Aspirin 81 mg tablet,camron yed release [generic] 81 mg By Mouth Once daily Do not crush, chew, or break For CAD 81 mg 06/154 Inactiv e 2023 55666 27129 9 Once daily By Mouth False Cefpodoxime 200 mg tablet [generic] 200mg By Mouth Twice daily For UTI 200mg 07/04 Inactiv e 2023 55308 32009 0 Twice daily By Mouth False Calcium citrate 250 mg tablet [generic] 06/26 Inactiv e 2023 74522 62695 6 Calcium citrate 250 mg tablet [generic] Once daily TAKE 4 TABLETS (1000MG) BY MOUTH For SUPPLEMENT 500 MG 2023 Active 2023 18827 64735 6 Once daily By Mouth False Norvasc 5 mg tablet 7.5 mg By Mouth Once daily Hold medication if SBP <90 For HYPERTENSIVE HEART DISEASE WITHOUT HEART FAILURE 7.5 mg 06/30 Inactiv e 2023 95541 84720 1 Once daily By Mouth I11.9 False Norvasc 5 mg tablet 7.5 mg By Mouth Once daily Hold medication if SBP <90 For HYPERTENSIVE HEART DISEASE WITHOUT HEART FAILURE 7.5 mg 07/06 Inactiv e 2023 17808 21242 1 Once daily By Mouth I11.9 False Simethicone 125 mg capsule [generic] 2 capule By Mouth Twice daily as needed For bloating/gas pain 2 capule 2023 Active 2023 27795 64369 0 Twice daily as needed By Mouth False Cepacol Sore Throat (benzocaine -menthol) 15 mg-2.6 mg lozenges 2 lozenges By Mouth Every 6 hours as needed For sore throat 2 lozenge s 2023 Active 2023 03851 39516 6 Every 6 hours as needed By Mouth False Cefepime 1 gram solution for injection [generic] 1g Intramuscular Every 12 hours 1g intramuscular ly ever 12 hours For UTI 1g 07/06 Inactiv e 2023 90932 38295 4 Every 12 hours Intram uscula r False Cefepime 1 gram solution for injection [generic] 07/06 Inactiv e 2023 25200 45268 4 Cefepime 1 gram solution for injection [generic] 1g Intramuscular Every 12 hours 1g intramuscular ly ever 12 hours For UTI Reconstitute with 2.4 ML of NSS. 1g 07/08 Inactiv e 2023 43342 98477 4 Every 12 hours Intram uscula r False Norvasc 5 mg tablet 07/06 Inactiv e 2023 01583 72357 1 I11.9 Norvasc 5 mg tablet 7.5 mg By Mouth Once daily Hold medication if SBP <90 For HYPERTENSIVE HEART DISEASE WITHOUT HEART FAILURE 7.5 mg 2023 00 /0000 Active 2023 50088 71900 1 Once daily By Mouth I11.9 False Cefepime 1 gram solution for injection [generic] 07/08 Inactiv e 2023 33712 03855 4 Cefepime 1 gram solution for injection [generic] 1g Intramuscular Every 12 hours 1g intramuscular ly ever 12 hours For UTI Reconstitute with 2.4 ML of NSS. 1g 07/08 Inactiv e 2023 07662 77478 4 Every 12 hours Intram uscula r False Cefepime 1 gram solution for injection [generic] 07/08 Inactiv e 2023 93380 93409 4 Cefepime 1 gram solution for injection [generic] 1g Intramuscular Every 12 hours 1g intramuscular ly ever 12 hours For UTI Reconstitute with 2.4 ML of NSS. 1g 07/11 Inactiv e 2023 70911 08089 4 Every 12 hours Intram uscula r False Fleet Enema 19 gram-7 gram/118 mL 1 Rectal 1 time For constipation 1 07/16 Inactiv e 2024 89475 52545 6 1 time Rectal False Nystatin 100,000 unit/gram topical cream [generic] 100,000 unit Topical As Needed For DX- EXCORIATION 100,000 unit 12/12 Inactiv e 2023 04596 01454 5 Topica l False Vicks Vaporub 4.7 %-1.2 %-2.6 % topical ointment 4.7-1.2-2.6 Topical 3 times a day As Needed For DX- CONGESTION 4.7-1.2 -2.6 12/12 Inactiv e 2023 11442 14900 1 3 times a day Topica l False Ketoconazol e 2 % shampoo [generic] APPLY SHAMPOO TOPICALLY TO SCALP DURING HAIR WASHINGDX: ELVIA DERM OF SCALP For DX- ELVIA DERM OF SCALP 12/12 Inactiv e 2023 76028 86438 4 Topica l False THERA SILICONE SKIN GUARD Topical Twice daily 1 APPLICATION TOPICALLY IN THE MORNING AND AT BEDTIME TO SCROTUM For DX- PREVENTION 2023 0000 Active 2023 Twice daily Topica l False Selenium sulfide 2.5 % lotion [generic] 2.5 % Topical EVERY MONDAY, MONDAY AND MONDAY AFTER SHOWER For DANDRUFF 2.5 % 2023 00/00 /0000 Active 2023 97100 67369 4 3 times a week Topica l False Nystatin (bulk) 100 million unit powder [generic] 100 million Topical Twice daily as needed For EXOCORATION 100 million 12/20 Inactiv e 2023 38587 92943 1 Twice daily as needed Topica l False Ketoconazol e 2 % shampoo [generic] Once daily APPLY SHAMPOO TOPICALLY TO SCALP DURING HAIR WASHING ON SHOWER DAYS- , , MON For ELVIA DERM OF SCAP 2 % 2023 0000 /0000 Active 2023 76581 80322 4 Once daily Topica l False Nystatin 100,000 unit/gram topical cream [generic] 1 mague Topical Twice daily as needed For EXOCORATION 1 mague 06/05 Inactiv e 2023 79577 74419 5 Twice daily as needed Topica l False Nystatin 100,000 unit/gram topical powder [generic] 100,000 unit Topical Twice daily to scrotum with AM and PM care For Scrotal excoriation 100,000 unit 06/05 Inactiv e 2023 54005 93125 5 Twice daily Topica l False Problems [...] weight Temperature SpO2 Blood Sugar Pulse Respirations 73553 209 56740 2 78.00 mm[Hg] - Sitting 130.00 mm[Hg] - Sitting 99463 210 28657 6 80.00 mm[Hg] - Sitting 132.00 mm[Hg] - Sitting 61437 211 49409 5 78.00 mm[Hg] - Sitting 125.00 mm[Hg] - Sitting 55151 216 67434 1 254.10 NI 55400 216 87482 2 79.00 mm[Hg] - Sitting 157.00 mm[Hg] - Sitting 73 NI 254.10 NI 36.30 Tympanic 95.00 % 72.00/ min 16.00/min 70096 216 80467 4 98.80 Tympanic 06849 216 96555 2 78.00 mm[Hg] - Sitting 164.00 mm[Hg] - Sitting 23865 217 44115 3 98.20 Tympanic 65719 217 02393 5 73.00 mm[Hg] - Sitting 159.00 mm[Hg] - Sitting 90559 217 26316 9 98.40 Forehead Scan 44769 218 84529 3 97.90 Tympanic 49136 218 85511 5 77.00 mm[Hg] - Sitting 137.00 mm[Hg] - Sitting 37754 219 97159 0 97.70 Tympanic 05098 219 35966 6 97.60 Tympanic 33789 219 54440 4 76.00 mm[Hg] - Sitting 139.00 mm[Hg] - Sitting 99305 219 38680 4 97.80 Forehead Scan 71067 220 60435 9 97.90 Tympanic 32541 220 94922 9 76.00 mm[Hg] - Sitting 138.00 mm[Hg] - Sitting 02353 220 10262 6 98.10 Tympanic 27084 221 28321 5 67.00 mm[Hg] - Sitting 142.00 mm[Hg] - Sitting 70774 221 97101 8 98.20 Tympanic 38877 221 39661 0 98.30 Tympanic 42493 222 96839 7 98.20 Tympanic 91727 222 11778 8 97.90 Tympanic 67639 223 12786 3 98.20 Tympanic 94688 223 67283 3 98.00 Tympanic 03873 224 17776 0 59.00 mm[Hg] - Sitting 111.00 mm[Hg] - Sitting 98.40 Forehead Scan 95.00 % 56.00/ min 18.00/min 42246 224 45321 9 98.20 Forehead Scan 82898 224 06540 3 97.90 Tympanic 61472 225 98617 4 98.20 Tympanic 08957 225 62031 8 97.50 Forehead Scan 63660 228 45303 0 55.00 mm[Hg] - Sitting 118.00 mm[Hg] - Sitting 98.40 Tympanic 69.00/ min 82549 229 66983 8 78.00 mm[Hg] - Sitting 152.00 mm[Hg] - Sitting 08780 230 29382 0 62.00 mm[Hg] - Sitting 122.00 mm[Hg] - Sitting 53623 231 87183 7 72.00 mm[Hg] - Lying Down 140.00 mm[Hg] - Lying Down 09785 101 68192 3 97.70 Forehead Scan 98844 101 15360 1 254.10 NI 69.00/ min 25742 101 08051 9 72.00 mm[Hg] - Sitting 142.00 mm[Hg] - Sitting 97.70 Tympanic 18.00/min 95536 101 87439 3 72.00 mm[Hg] - Lying Down 142.00 mm[Hg] - Lying Down 23845 102 18665 8 68.00 mm[Hg] - Lying Down 152.00 mm[Hg] - Lying Down 16837 103 99226 5 74.00 mm[Hg] - Sitting 158.00 mm[Hg] - Sitting 72661 104 96097 9 78.00 mm[Hg] - Sitting 144.00 mm[Hg] - Sitting 10807 105 50602 5 68.00 mm[Hg] - Sitting 138.00 mm[Hg] - Sitting 05946 106 56643 1 70.00 mm[Hg] - Sitting 138.00 mm[Hg] - Sitting 42959 107 94353 1 67.00 mm[Hg] - Sitting 142.00 mm[Hg] - Sitting Immunizations Vaccine Date Status [...]
--- OUTSIDE RECORDS SUMMARY | 2024-07-26 11:19 | External Medical Summary | Continuity Of Care Document ---
Author Name Unknown Address [address] [place] [address] Organization [facility] () Care Team Providers Care 3D Animator Name Role Phone DO Pritchett Amy Primary Care Provider [phone] Allergies Allergy Reaction Start Date End Date Status AMINOGLYCOSIDES Active CIPRO Active GENTAMICIN Active NSAIDS (NON-STEROIDAL ANTI-INFLAMMATORY DRUG) 0 Active IBUPROFEN Active QUINOLONES Active VALIUM Active Medications Medication Instructions Dosage Start Date End Date Status Order Date Drug Code Frequency Route of Admin Diagnosis Code Substitutions Allowed Spikevax 5202-0772(1 2y up)(PF) 50 mcg/0.5 mL intramuscul ar suspension [COVID adn24-09(12 up)(andu)(P F)] 0.5mL Intramuscular 1 time Monitory 15 Minutes post injection for adverse effects; record site/temp For COVID 19 PREVENTION 0.5mL 01/02 Inactiv e 2023 24312 62007 4 1 time Intram uscula r False [facility] - Nurse initials indicate verificatio n that [id number] vaccine was administere d by [facility] jon 1 Intramuscular 1 time ( Indicate vaccine type) For vaccine 1 05/03 Inactiv e 2023 1 time Intram uscula r False Lisinopril 40 mg tablet [generic] TAKE ONE (1) TABLET BY MOUTH IN THE MORNING. For DX- HTN 1 2023 Active 2023 80530 17594 1 Once daily By Mouth False Tizanidine 2 mg tablet [generic] TAKE ONE (1) TABLET BY MOUTH ONCE DAILY For MUSCLE SPASM 1 2023 Active 2023 14904 09164 0 Once daily By Mouth M62.838 False Tamsulosin 0.4 mg capsule [generic] TAKE (1) CAPSULE BY MOUTH AT BEDTIME For SPASMS 1 2023 Active 2023 43327 82095 0 Once daily By Mouth False Aspirin 81 mg tablet Once daily 1 TABLET BY MOUTH IN THE MORNING For DX- CAD DO NOT CRUSH, CHEW OR BREAK 81 mg 06/12 Inactiv e 2023 Once daily By Mouth False Baclofen 20 mg tablet [generic] 20 mg By Mouth 4 times a day For DX- MUSCLE SPASMS 20 mg 12/12 Inactiv e 2023 57167 00374 1 4 times a day By Mouth False Calcium citrate 250 mg tablet Once daily 4 TABLET BY MOUTH For DX- SUPPLEMENT 250 mg calci 12/12 Inactiv e 2023 Once daily By Mouth False Co Q-10 100 mg capsule 100 mg By Mouth Once daily For DX- SUPPLEMENT 100 mg 06/20 Inactiv e 2023 99049 75054 5 Once daily By Mouth False Furosemide 20 mg tablet [generic] 20 mg By Mouth Once daily For DX-CHF 20 mg 12/12 Inactiv e 2023 13702 00817 0 Once daily By Mouth False Gabapentin 300 mg capsule [generic] 300 mg By Mouth 3 times a day For DX- NEUROPATHY 300 mg 12/12 Inactiv e 2023 89217 06352 4 3 times a day By Mouth False Loratadine 10 mg tablet [generic] 10 mg By Mouth Once daily For DX- ALLERGIES 10 mg 2023 Active 2023 96431 85827 1 Once daily By Mouth False Miralax 17 gram/dose oral powder 17 gram/dose By Mouth IN THE MORNING Mix 1 TABLESPOON IN 8 OZ OF FLUID HOLD FOR LOOSE STOOLS For DX- CONSTIPATION 17 gram/do se 12/12 Inactiv e 2023 92677 98153 0 Once daily By Mouth False Paroxetine 30 mg tablet [generic] 30 mg By Mouth Once daily For DX- DEPRESSION 30 mg 2023 00/00 /0000 Active 2023 80456 32690 3 Once daily By Mouth False Potassium citrate ER 15 mEq (1,620 mg) tablet,exte nded release [generic] 15 mEq By Mouth 3 times a day For DX- SUPPLEMENT/DI URETIC USE/ HYPOCITRAUIRA DO NOT CRUSH 15 mEq 12/12 Inactiv e 2023 75861 79660 1 3 times a day By Mouth [...] For DX- DANDRUFF 12/12 Inactiv e 2023 74278 08595 4 3 times a week Topica l False Acetaminoph en 325 mg tablet [generic] TAKE 2 TABS (650MG) BY MOUTH EVERY 4 HOURS NEEDED FOR TEMP >100 NOT TO EXCEED 3GM/24HRS TAKE 2 TABS (650MG) BY MOUTH EVERY 4 HOURS NEEDED FOR TEMP >100 NOT TO EXCEED 3GM/24HRS For DX-FEVER 2 12/12 Inactiv e 2023 05673 70273 0 By Mouth False MILK OF MAGNESIA ADMINISTER 30 ML BY MOUTH ONCE DAILY NEEDED FOR CONSTIPATION X3 DAYS WITH NO BM. For DX- CONSTIPATION 30ML 12/12 Inactiv e 2023 93702 31408 9 By Mouth False Enema Disposable 19 gram-7 gram/118 mL ADMINISTER ONE ENEMA RECTALLY ONCE DAILY NEEDED FOR CONSTIPATION ON DAY 6 OF NO BM For DX- CONSTIPATION 12/12 Inactiv e 2023 66486 97320 1 Rectal False TUMS EXTRA STR 750MG TAKE (1) TABLET BY MOUTH THREE TIMES DAILY NEEDED FOR INDIGESTION For DX- INDIGESTION 1 12/12 Inactiv e 2023 85040 92386 8 By Mouth False Vitamin D3 25 [...] CONSTIPATION 10 mg 12/12 Inactiv e 2023 36567 23906 1 Rectal False Melatonin 3 mg tablet [generic] 3 mg By Mouth As Needed For DX-INSOMMIA 3 mg 12/12 Inactiv e 2023 17416 84416 8 By Mouth False Hydrocortis one 1 % topical cream [generic] 1 % Topical As Needed For DX- PAIN 1 % 12/12 Inactiv e 2023 53844 01629 1 Topica l False HYDROCORTIS ONE/PARMOXI NE [...] 5-10 50 mg 12/20 Inactiv e 2023 28904 32450 0 Every 4 hours as needed By Mouth False Tylenol 325 mg tablet 325 mg By Mouth Every 4 hours as needed For DX- PAIN PRN FOR MILD PAIN, DO NOT EXCEED 3000MG APAP/24 HOURS 325 mg 12/20 Inactiv e 2023 77972 11791 0 Every 4 hours as needed By Mouth False Baclofen 20 mg tablet [generic] 20 mg By Mouth 4 times a day For MUSCLE SPASMS 20 mg 12/20 Inactiv e 2023 03774 81137 1 4 times a day By Mouth False Calcium citrate 250 mg tablet [generic] Once daily TAKE 4 TABLETS (1000MG) BY MOUTH For SUPPLEMENT 1000 MG 06/26 Inactiv e 2023 91746 32127 6 Once daily By Mouth False Dulcolax (bisacodyl) 10 mg rectal suppository 10 mg Rectal Once daily For CONSTIPATION *MAY HOLD FOR LOOSE STOOLS* 10 mg 2023 Active 2023 43351 04000 1 Once daily Rectal False Gabapentin 300 mg capsule [generic] 300 mg By Mouth 3 times a day For NEUROPATHY 300 mg 2023 Active 2023 91678 49751 4 3 times a day By Mouth False Potassium citrate ER 15 mEq (1,620 mg) tablet,exte nded release [generic] 15 mEq By Mouth 3 times a day For SUPPLEMENT/DI URETIC USE/HYPOCITRA URIA 15 mEq 06/11 Inactiv e 2023 04918 74178 1 3 times a day By Mouth False Potassium chloride ER 20 mEq tablet,exte nded release [generic] 20 mEq By Mouth 3 times a day *DO NOT CRUSH, CHEW OR BREAK* For SUPPLEMENT 20 mEq 12/18 Inactiv e 2023 93315 57918 1 3 times a day By Mouth False Tizanidine 4 mg tablet [generic] 4 mg By Mouth Once daily For MUSCLE SPASMS 4 mg 2023 Active 2023 48966 02587 0 Once daily By Mouth False Tylenol 325 mg tablet 2 tabs By Mouth Every 4 hours as needed For Fever >100 DO NOT EXCEED 3000 MG APAP/24 Hours 2 tabs 12/20 Inactiv e 2023 47999 12639 0 Every 4 hours as needed By Mouth False Dulcolax (bisacodyl) 10 mg rectal suppository Daily as needed For Constipation 1 sup 12/20 Inactiv e 2023 68120 66464 1 Daily as needed Rectal False Fleet Enema 19 gram-7 gram/118 mL 1 Rectal Daily as neededFor Constipation 1 12/20 Inactiv e 2023 84579 59314 6 Daily as needed Rectal False Milk of Magnesia 400 mg/5 mL oral suspension [Magnesium hydroxide] PRN 30ml By Mouth Daily as needed for constipation one time daily if no BM, on day 4 of no BM (PRN refer to instructions) For Constipation For Constipatioin 30ml 12/20 Inactiv e 2023 75354 88201 6 1 time By Mouth False Melatonin 3 mg tablet [generic] 3 mg By Mouth Once daily As Needed For INSOMNIA 3 mg 12/20 Inactiv e 2023 21959 99342 8 Once daily By Mouth False Hydrocortis one 1 % topical cream [generic] 1 % Rectal Four times daily as needed For hemorroid pain 1 % 12/20 Inactiv e 2023 76238 97654 1 Four times daily as needed Rectal False X-STGH ANTACID 750MG CHEW TAKE (1) TABLET BY MOUTH THREE TIMES DAILY NEEDED FOR INDIGESTION 12/20 Inactiv e 2023 28109 71460 4 Three times daily as needed Saline Mist 0.65 % nasal spray aerosol 0.65 % Nares Four times daily as needed For DRYNESS 0.65 % 12/20 Inactiv e 2023 15738 64759 8 Four times daily as needed Nares False Vicks Vaporub 4.7 %-1.2 %-2.6 % topical ointment Apply topically to chest Three times daily as needed For CONGESTION 4.7-1.2 -2.6 12/20 Inactiv e 2023 69790 09413 1 Three times daily as needed Topica l False VITAMIN D3 2000U CAP TAKE ONE (1) CAPSULE BY MOUTH DAILY* DO NOT CRUSH, CHEW OR BREAK* For Supplement 1 capsule 12/19 Inactiv e 2023 00494 16452 0 Once daily By Mouth False Potassium chloride ER 20 mEq tablet,exte nded release(par t/cryst) [generic] TAKE (1) TABLET BY MOUTH THREE TIMES DAILY (MORNING, AFTERNOON, EVENING)*DO NOT CRUSH, CHEW, OR BREAK* For SUPPLEMENT 20 MEQ 06/11 Inactiv e 2023 37046 80221 5 3 times a day By Mouth False Aspirin 81 mg tablet,camron yed release [generic] TAKE ONE (1) TABLET BY MOUTH ONCE DAILY*DO NOT CRUSH, CHEW OR BREAK* For CAD 81 MG 12/22 Inactiv e 2023 93661 01512 0 Once daily By Mouth False Furosemide 20 mg tablet [generic] TAKE 1 AND 1/2 TABLETS (30MG) BY MOUTH ONCE DAILY For CHF 30mg 2023 Active 2023 87101 29591 1 Once daily By Mouth False Polyethylen e glycol 3350 17 gram/dose oral powder [generic] MIX 17 GRAMS (1 CAPFUL) IN 60Z OF LIQUID AND DRINK BY MOUTH ONCE DAILY *HOLD FOR LOOSE STOOLS* For constipation 17 g 2023 Active 2023 52534 51975 3 Once daily By Mouth False Vitamin D3 50 mcg (2,000 unit) capsule Once daily TAKE ONE (1) CAPSULE BY MOUTH DAILY* DO NOT CRUSH, CHEW OR BREAK* For Supplement 1 capsule 02/07 Inactiv e 2023 52800 08840 2 Once daily By Mouth False Fleet Enema 19 gram-7 gram/118 mL 1 Rectal Daily as neededFor Constipation 1 2023 0000 Active 2023 90750 37131 6 Daily as needed Rectal False Tums E-X 300 mg (as calcium carbonate 750 mg) chewable tablet 1 tab By Mouth TAKE (1) TABLET BY MOUTH THREE TIMES DAILY NEEDED FOR INDIGESTION 1 tab 202300 /0000 Active 2023 34117 77360 1 Three times daily as needed By Mouth False Tylenol 325 mg tablet 2 tabs By Mouth Every 4 hours as needed For Fever >100 DO NOT EXCEED 3000 MG APAP/24 Hours 2 tabs 202300 /0000 Active 2023 20700 71875 0 Every 4 hours as needed By Mouth False Vicks Vaporub 4.7 %-1.2 %-2.6 % topical ointment Apply topically to chest Three times daily as needed For CONGESTION topical 202300 Active 2023 18385 48791 1 Three times daily as needed Topica l False Tylenol 325 mg tablet 2 tabs By Mouth Every 4 hours as needed For DX- PAIN PRN FOR MILD PAIN, DO NOT EXCEED 3000MG APAP/24 HOURS 2 tabs 202300 Active 2023 66268 44759 0 Every 4 hours as needed By Mouth False Tramadol 50 mg tablet [generic] 1 tab By Mouth Every 4 hours as needed For DX- PAIN 5-10 1 tab 03/10 Inactiv e 2023 74170 61681 0 Every 4 hours as needed By Mouth False Saline Mist 0.65 % nasal spray aerosol 2 sprays Nares Four times daily as needed For DRYNESS 2 sprays 202300 / Active 2023 37505 10263 8 Four times daily as needed Nares False Dulcolax (bisacodyl) 10 mg rectal suppository Daily as needed For Constipation 1 sup 202300 / Active 2023 18223 67721 1 Daily as needed Rectal False Hydrocortis one-pramoxi ne 1 %-1 % rectal cream [generic] 1 mague Rectal Four times daily as needed For hemorroid pain 1 mague 202300 /0000 Active 2023 80618 20914 4 Four times daily as needed Rectal False Melatonin 3 mg tablet [generic] 1 tab By Mouth At bedtime as needed For INSOMNIA 1 tab 12/24 Inactiv e 2023 65580 56739 8 At bedtime as needed By Mouth False Milk of Magnesia 400 mg/5 mL oral suspension 30ml By Mouth Daily as needed Daily as needed for constipation one time daily if no BM, on day 4 of no BM (PRN refer to instructions) For Constipation For Constipatioin 30ml 2023 Active 2023 80656 85415 2 Daily as needed By Mouth False Baclofen 20 mg tablet [generic] 20 mg By Mouth 4 times a day For MUSCLE SPASMS 20 mg 2023 Active 2023 76923 50774 1 4 times a day By Mouth False Melatonin 3 mg tablet [generic] 1 tab By Mouth At bedtime as needed For INSOMNIA 1 tab 2023 Active 2023 81484 57083 8 At bedtime as needed By Mouth False Bactrim DS 800 mg-160 mg tablet 1 tab By Mouth Twice daily For URINARY TRACT INFECTION, SITE NOT SPECIFIED 1 tab 01/06 Inactiv e 2023 63229 40313 1 Twice daily By Mouth N39.0 False Cefdinir 300 mg capsule [generic] 300 mg By Mouth Twice daily For UTI 300 mg 01/07 Inactiv e 2023 39855 88274 0 Twice daily By Mouth False Cefdinir 300 mg capsule [generic] 300 mg By Mouth Twice daily For UTI 300 mg 01/17 Inactiv e 2023 83323 43542 0 Twice daily By Mouth False Zyrtec 10 mg tablet 10 mg By Mouth Once daily For sinus congestion 10 mg 01/22 Inactiv e 2023 97179 03446 0 Once daily By Mouth False Tobramycin 0.3 %-dexametha sone 0.1 % eye drops,suspe nsion [generic] 0.3-0.1 % Left Eye 4 times a day For eye infection 0.3-0.1 % 02/05 Inactiv e 2023 30582 08794 5 4 times a day Left Eye False Fluconazole 150 mg tablet [generic] 150 mg By Mouth 1 time For yeast infection 150 mg 02/15 Inactiv e 2023 04719 62496 2 1 time By Mouth False Tramadol 50 mg tablet [generic] 1 tab By Mouth Every 4 hours as needed For DX- PAIN 5-10 1 tab 2023 00/00 /0000 Active 2023 84667 73400 0 Every 4 hours as needed By Mouth False Tobramycin 0.3 %-dexametha sone 0.1 % eye drops,suspe nsion [generic] 1 drop Left Eye 4 times a day For Inflammation of left eye 1 drop 05/08 Inactiv e 2023 34073 69166 5 4 times a day Left Eye False Voltaren Arthritis Pain 1 % topical gel 2 gm Topical Twice daily to rigth shoulder for 2 weeks For pain 2 gm 05/08 Inactiv e 2023 98992 27958 1 Twice daily Topica l False Chlorthalid one 25 mg tablet [generic] 12.5mg By Mouth Once daily For HTN 12.5mg 05/06 Inactiv e 2023 49969 25041 0 Once daily By Mouth False Chlorthalid one 25 mg tablet [generic] 12.5mg By Mouth Once daily For HTN 12.5mg 05/07 Inactiv e 2023 27542 12547 0 Once daily By Mouth False Chlorthalid one 25 mg tablet [generic] 05/07 Inactiv e 2023 01364 98984 0 Chlorthalid one 25 mg tablet [generic] 12.5mg By Mouth Once daily For HTN 12.5mg 06/26 Inactiv e 2023 12479 81081 0 Once daily By Mouth False Norvasc 5 mg tablet 5mg By Mouth Once daily, hold medication if systolic is less than 90 For HYPERTENSIVE HEART DISEASE WITHOUT HEART FAILURE 5mg 06/03 Inactiv e 2023 14361 02715 1 Once daily By Mouth I11.9 False Norvasc 5 mg tablet 5mg By Mouth Once daily, hold medication if systolic is less than 90 For HYPERTENSIVE HEART DISEASE WITHOUT HEART FAILURE 5mg 06/03 Inactiv e 2023 70471 61366 1 Once daily By Mouth I11.9 False Norvasc 5 mg tablet 5mg By Mouth Once daily, hold medication if systolic is less than 90 For HYPERTENSIVE HEART DISEASE WITHOUT HEART FAILURE 5mg 06/26 Inactiv e 2023 76616 82727 1 Once daily By Mouth I11.9 False [...] 10 mg 2023 00/00 /0000 Active 2023 55217 40108 1 Once daily By Mouth False DISCONTINUE [...] CAD 81 mg 06/14 Inactiv e 2023 04503 02052 9 Once daily By Mouth False Aspirin 81 mg tablet,camron yed release [generic] 06/14 Inactiv e 2023 42001 82124 9 Aspirin 81 mg tablet,camron yed release [generic] 81 mg By Mouth Once daily Do not crush, chew, or break For CAD 81 mg 06/154 Inactiv e 2023 96386 96772 9 Once daily By Mouth False Cefpodoxime 200 mg tablet [generic] 200mg By Mouth Twice daily For UTI 200mg 07/04 Inactiv e 2023 10239 08316 0 Twice daily By Mouth False Calcium citrate 250 mg tablet [generic] 06/26 Inactiv e 2023 73029 91575 6 Calcium citrate 250 mg tablet [generic] Once daily TAKE 4 TABLETS (1000MG) BY MOUTH For SUPPLEMENT 500 MG 2023 Active 2023 67406 91783 6 Once daily By Mouth False Norvasc 5 mg tablet 7.5 mg By Mouth Once daily Hold medication if SBP <90 For HYPERTENSIVE HEART DISEASE WITHOUT HEART FAILURE 7.5 mg 06/30 Inactiv e 2023 18378 35030 1 Once daily By Mouth I11.9 False Norvasc 5 mg tablet 7.5 mg By Mouth Once daily Hold medication if SBP <90 For HYPERTENSIVE HEART DISEASE WITHOUT HEART FAILURE 7.5 mg 07/06 Inactiv e 2023 66142 00358 1 Once daily By Mouth I11.9 False Simethicone 125 mg capsule [generic] 2 capule By Mouth Twice daily as needed For bloating/gas pain 2 capule 2023 Active 2023 22225 52351 0 Twice daily as needed By Mouth False Cepacol Sore Throat (benzocaine -menthol) 15 mg-2.6 mg lozenges 2 lozenges By Mouth Every 6 hours as needed For sore throat 2 lozenge s 2023 Active 2023 41935 69759 6 Every 6 hours as needed By Mouth False Cefepime 1 gram solution for injection [generic] 1g Intramuscular Every 12 hours 1g intramuscular ly ever 12 hours For UTI 1g 07/06 Inactiv e 2023 33659 74483 4 Every 12 hours Intram uscula r False Cefepime 1 gram solution for injection [generic] 07/06 Inactiv e 2023 64763 42137 4 Cefepime 1 gram solution for injection [generic] 1g Intramuscular Every 12 hours 1g intramuscular ly ever 12 hours For UTI Reconstitute with 2.4 ML of NSS. 1g 07/08 Inactiv e 2023 86818 09126 4 Every 12 hours Intram uscula r False Norvasc 5 mg tablet 07/06 Inactiv e 2023 08799 17309 1 I11.9 Norvasc 5 mg tablet 7.5 mg By Mouth Once daily Hold medication if SBP <90 For HYPERTENSIVE HEART DISEASE WITHOUT HEART FAILURE 7.5 mg 07/18 Inactiv e 2023 41225 73969 1 Once daily By Mouth I11.9 False Cefepime 1 gram solution for injection [generic] 07/08 Inactiv e 2023 14186 28845 4 Cefepime 1 gram solution for injection [generic] 1g Intramuscular Every 12 hours 1g intramuscular ly ever 12 hours For UTI Reconstitute with 2.4 ML of NSS. 1g 07/08 Inactiv e 2023 25449 36889 4 Every 12 hours Intram uscula r False Cefepime 1 gram solution for injection [generic] 07/08 Inactiv e 2023 72735 91291 4 Cefepime 1 gram solution for injection [generic] 1g Intramuscular Every 12 hours 1g intramuscular ly ever 12 hours For UTI Reconstitute with 2.4 ML of NSS. 1g 07/11 Inactiv e 2023 48881 67507 4 Every 12 hours Intram uscula r False Fleet Enema 19 gram-7 gram/118 mL 1 Rectal 1 time For constipation 1 07/16 Inactiv e 2024 81060 61034 6 1 time Rectal False Fleet Enema 19 gram-7 gram/118 mL 1 Rectal 1 time For constipation 1 07/17 Inactiv e 2024 32346 27555 6 1 time Rectal False Norvasc 5 mg tablet 7.5 mg By Mouth Once daily For HYPERTENSIVE HEART DISEASE WITHOUT HEART FAILURE 7.5 mg 2024 00/00 /0000 Active 2024 43242 30967 1 Once daily By Mouth I11.9 False Potassium chloride ER 20 mEq tablet,exte nded release(par t/cryst) [generic] 40 mEq By Mouth 1 time For low potassium prior to surgery 40 mEq 07/18 Inactiv e 2024 83043 26127 1 1 time By Mouth False Potassium chloride ER 20 mEq tablet,exte nded release(par t/cryst) [generic] 40 mEq By Mouth 1 time For low potassium prior to surgery 40 mEq 07/18 Inactiv e 2024 77137 12211 1 1 time By Mouth False Potassium chloride ER 20 mEq tablet,exte nded release(par t/cryst) [generic] 40 mEq By Mouth 1 time For low potassium 40 mEq 07/19 Active 2024 53113 63653 1 1 time By Mouth False Nystatin 100,000 unit/gram topical cream [generic] 100,000 unit Topical As Needed For DX- EXCORIATION 100,000 unit 12/12 Inactiv e 2023 48296 89390 5 Topica l False Vicks Vaporub 4.7 %-1.2 %-2.6 % topical ointment 4.7-1.2-2.6 Topical 3 times a day As Needed For DX- CONGESTION 4.7-1.2 -2.6 12/12 Inactiv e 2023 99625 90992 1 3 times a day Topica l False Ketoconazol e 2 % shampoo [generic] APPLY SHAMPOO TOPICALLY TO SCALP DURING HAIR WASHINGDX: ELVIA DERM OF SCALP For DX- ELVIA DERM OF SCALP 12/12 Inactiv e 2023 52169 71144 4 Topica l False THERA SILICONE SKIN GUARD Topical Twice daily 1 APPLICATION TOPICALLY IN THE MORNING AND AT BEDTIME TO SCROTUM For DX- PREVENTION 2023 Active 2023 Twice daily Topica l False Selenium sulfide 2.5 % lotion [generic] 2.5 % Topical EVERY MONDAY, MONDAY AND MONDAY AFTER SHOWER For DANDRUFF 2.5 % 2023 Active 2023 44378 60700 4 3 times a week Topica l False Nystatin (bulk) 100 million unit powder [generic] 100 million Topical Twice daily as needed For EXOCORATION 100 million 12/20 Inactiv e 2023 17409 04417 1 Twice daily as needed Topica l False Ketoconazol e 2 % shampoo [generic] Once daily APPLY SHAMPOO TOPICALLY TO SCALP DURING HAIR WASHING ON SHOWER DAYS- , , SAT For ELVIA DERM OF SCAP 2 % 2023 Active 2023 97904 77457 4 Once daily Topica l False Nystatin 100,000 unit/gram topical cream [generic] 1 mague Topical Twice daily as needed For EXOCORATION 1 mague 06/05 Inactiv e 2023 57465 83887 5 Twice daily as needed Topica l False Nystatin 100,000 unit/gram topical powder [generic] 100,000 unit Topical Twice daily to scrotum with AM and PM care For Scrotal excoriation 100,000 unit 06/05 Inactiv e 2023 44824 75852 5 Twice daily Topica l False Problems [...] of urinary device 07/21/2023 Active Z79.01 intermediate frame tender (current) use of anticoagulants 07/21 Active N31.9 [...] Temperature SpO2 Blood Sugar Pulse Respirations 210 39456 6 80.00 mm[Hg] - Sitting 132.00 mm[Hg] - Sitting 211 65621 5 78.00 mm[Hg] - Sitting 125.00 mm[Hg] - Sitting 216 58758 1 254.10 NI 44173 216 55045 2 79.00 mm[Hg] - Sitting 157.00 mm[Hg] - Sitting 73 NI 254.10 NI 36.30 Tympanic 95.00 % 72.00/ min 16.00/min 43372 216 62308 4 98.80 Tympanic 79793 216 22524 2 78.00 mm[Hg] - Sitting 164.00 mm[Hg] - Sitting 21505 217 97609 3 98.20 Tympanic 217 15058 5 73.00 mm[Hg] - Sitting 159.00 mm[Hg] - Sitting 217 25240 9 98.40 Forehead Scan 43863 218 03205 3 97.90 Tympanic 66450 218 92421 5 77.00 mm[Hg] - Sitting 137.00 mm[Hg] - Sitting 95415 219 35355 0 97.70 Tympanic 58938 219 30003 6 97.60 Tympanic 29137 219 69970 4 76.00 mm[Hg] - Sitting 139.00 mm[Hg] - Sitting 73107 219 50282 4 97.80 Forehead Scan 59109 220 44294 9 97.90 Tympanic 83345 220 74898 9 76.00 mm[Hg] - Sitting 138.00 mm[Hg] - Sitting 49447 220 96790 6 98.10 Tympanic 93945 221 39467 5 67.00 mm[Hg] - Sitting 142.00 mm[Hg] - Sitting 48328 221 52243 8 98.20 Tympanic 51069 221 78908 0 98.30 Tympanic 90706 222 30532 7 98.20 Tympanic 72344 222 73396 8 97.90 Tympanic 41943 223 01463 3 98.20 Tympanic 80802 223 20092 3 98.00 Tympanic 83894 224 20898 0 59.00 mm[Hg] - Sitting 111.00 mm[Hg] - Sitting 98.40 Forehead Scan 95.00 % 56.00/ min 18.00/min 68093 224 89745 9 98.20 Forehead Scan 26823 224 06616 3 97.90 Tympanic 72198 225 10611 4 98.20 Tympanic 78670 225 30999 8 97.50 Forehead Scan 46461 228 49285 0 55.00 mm[Hg] - Sitting 118.00 mm[Hg] - Sitting 98.40 Tympanic 69.00/ min 43313 229 73309 8 78.00 mm[Hg] - Sitting 152.00 mm[Hg] - Sitting 97751 230 06361 0 62.00 mm[Hg] - Sitting 122.00 mm[Hg] - Sitting 13136 231 33552 7 72.00 mm[Hg] - Lying Down 140.00 mm[Hg] - Lying Down 45027 101 20821 3 97.70 Forehead Scan 08936 101 59048 1 254.10 NI 69.00/ min 89912 101 85176 9 72.00 mm[Hg] - Sitting 142.00 mm[Hg] - Sitting 97.70 Tympanic 18.00/min 84308 101 73372 3 72.00 mm[Hg] - Lying Down 142.00 mm[Hg] - Lying Down 09810 102 02663 8 68.00 mm[Hg] - Lying Down 152.00 mm[Hg] - Lying Down 17452 103 14518 5 74.00 mm[Hg] - Sitting 158.00 mm[Hg] - Sitting 10369 104 86678 9 78.00 mm[Hg] - Sitting 144.00 mm[Hg] - Sitting 75233 105 99737 5 68.00 mm[Hg] - Sitting 138.00 mm[Hg] - Sitting 87865 106 50419 1 70.00 mm[Hg] - Sitting 138.00 mm[Hg] - Sitting 04701 107 57585 1 67.00 mm[Hg] - Sitting 142.00 mm[Hg] - Sitting 85859 108 95729 0 74.00 mm[Hg] - Sitting 143.00 mm[Hg] [...]
--- OUTSIDE RECORDS SUMMARY | 2024-07-26 11:19 | External Medical Summary | Continuity Of Care Document ---
Author Name Unknown Address [address] [place] [address] Organization [facility] () Care Team Providers Care Concert Pianist Name Role Phone DO Pritchett Amy Primary Care Provider [phone] Allergies Allergy Reaction Start Date End Date Status AMINOGLYCOSIDES Active CIPRO Active GENTAMICIN Active NSAIDS (NON-STEROIDAL ANTI-INFLAMMATORY DRUG) 0 Active IBUPROFEN Active QUINOLONES Active VALIUM Active Medications Medication Instructions Dosage Start Date End Date Status Order Date Drug Code Frequency Route of Admin Diagnosis Code Substitutions Allowed Spikevax [id number](1 2y up)(PF) 50 mcg/0.5 mL intramuscul ar suspension [COVID [id number](12 up)(andu)(P F)] 0.5mL Intramuscular 1 time Monitory 15 Minutes post injection for adverse effects; record site/temp For COVID 19 PREVENTION 0.5mL 01/02 Inactiv e 2023 54413 13562 4 1 time Intram uscula r False [facility] - Nurse initials indicate verificatio n that [id number] vaccine was administere d by [facility] jon 1 Intramuscular 1 time ( Indicate vaccine type) For vaccine 1 05/03 Inactiv e 2023 1 time Intram uscula r False Lisinopril 40 mg tablet [generic] TAKE ONE (1) TABLET BY MOUTH IN THE MORNING. For DX- HTN 1 2023 Active 2023 87908 35094 1 Once daily By Mouth False Tizanidine 2 mg tablet [generic] TAKE ONE (1) TABLET BY MOUTH ONCE DAILY For MUSCLE SPASM 1 2023 Active 2023 59605 14167 0 Once daily By Mouth M62.838 False Tamsulosin 0.4 mg capsule [generic] TAKE (1) CAPSULE BY MOUTH AT BEDTIME For SPASMS 1 2023 Active 2023 67761 48611 0 Once daily By Mouth False Aspirin 81 mg tablet Once daily 1 TABLET BY MOUTH IN THE MORNING For DX- CAD DO NOT CRUSH, CHEW OR BREAK 81 mg 06/12 Inactiv e 2023 Once daily By Mouth False Baclofen 20 mg tablet [generic] 20 mg By Mouth 4 times a day For DX- MUSCLE SPASMS 20 mg 12/12 Inactiv e 2023 53243 67615 1 4 times a day By Mouth False Calcium citrate 250 mg tablet Once daily 4 TABLET BY MOUTH For DX- SUPPLEMENT 250 mg calci 12/12 Inactiv e 2023 Once daily By Mouth False Co Q-10 100 mg capsule 100 mg By Mouth Once daily For DX- SUPPLEMENT 100 mg 06/20 Inactiv e 2023 66142 39089 5 Once daily By Mouth False Furosemide 20 mg tablet [generic] 20 mg By Mouth Once daily For DX-CHF 20 mg 12/12 Inactiv e 2023 59121 16071 0 Once daily By Mouth False Gabapentin 300 mg capsule [generic] 300 mg By Mouth 3 times a day For DX- NEUROPATHY 300 mg 12/12 Inactiv e 2023 79065 51969 4 3 times a day By Mouth False Loratadine 10 mg tablet [generic] 10 mg By Mouth Once daily For DX- ALLERGIES 10 mg 2023 Active 2023 92534 57269 1 Once daily By Mouth False Miralax 17 gram/dose oral powder 17 gram/dose By Mouth IN THE MORNING Mix 1 TABLESPOON IN 8 OZ OF FLUID HOLD FOR LOOSE STOOLS For DX- CONSTIPATION 17 gram/do se 12/12 Inactiv e 2023 42414 04784 0 Once daily By Mouth False Paroxetine 30 mg tablet [generic] 30 mg By Mouth Once daily For DX- DEPRESSION 30 mg 2023 00/00 /0000 Active 2023 26623 41263 3 Once daily By Mouth False Potassium citrate ER 15 mEq (1,620 mg) tablet,exte nded release [generic] 15 mEq By Mouth 3 times a day For DX- SUPPLEMENT/DI URETIC USE/ HYPOCITRAUIRA DO NOT CRUSH 15 mEq 12/12 Inactiv e 2023 06837 46784 1 3 times a day By Mouth [...] For DX- DANDRUFF 12/12 Inactiv e 2023 38318 07152 4 3 times a week Topica l False Acetaminoph en 325 mg tablet [generic] TAKE 2 TABS (650MG) BY MOUTH EVERY 4 HOURS NEEDED FOR TEMP >100 NOT TO EXCEED 3GM/24HRS TAKE 2 TABS (650MG) BY MOUTH EVERY 4 HOURS NEEDED FOR TEMP >100 NOT TO EXCEED 3GM/24HRS For DX-FEVER 2 12/12 Inactiv e 2023 05221 63276 0 By Mouth False MILK OF MAGNESIA ADMINISTER 30 ML BY MOUTH ONCE DAILY NEEDED FOR CONSTIPATION X3 DAYS WITH NO BM. For DX- CONSTIPATION 30ML 12/12 Inactiv e 2023 07847 67742 9 By Mouth False Enema Disposable 19 gram-7 gram/118 mL ADMINISTER ONE ENEMA RECTALLY ONCE DAILY NEEDED FOR CONSTIPATION ON DAY 6 OF NO BM For DX- CONSTIPATION 12/12 Inactiv e 2023 56566 28283 1 Rectal False TUMS EXTRA STR 750MG TAKE (1) TABLET BY MOUTH THREE TIMES DAILY NEEDED FOR INDIGESTION For DX- INDIGESTION 1 12/12 Inactiv e 2023 92980 49263 8 By Mouth False Vitamin D3 25 [...] CONSTIPATION 10 mg 12/12 Inactiv e 2023 66389 98305 1 Rectal False Melatonin 3 mg tablet [generic] 3 mg By Mouth As Needed For DX-INSOMMIA 3 mg 12/12 Inactiv e 2023 20561 97520 8 By Mouth False Hydrocortis one 1 % topical cream [generic] 1 % Topical As Needed For DX- PAIN 1 % 12/12 Inactiv e 2023 77134 88296 1 Topica l False HYDROCORTIS ONE/PARMOXI NE [...] 5-10 50 mg 12/20 Inactiv e 2023 42037 53405 0 Every 4 hours as needed By Mouth False Tylenol 325 mg tablet 325 mg By Mouth Every 4 hours as needed For DX- PAIN PRN FOR MILD PAIN, DO NOT EXCEED 3000MG APAP/24 HOURS 325 mg 12/20 Inactiv e 2023 45050 17417 0 Every 4 hours as needed By Mouth False Baclofen 20 mg tablet [generic] 20 mg By Mouth 4 times a day For MUSCLE SPASMS 20 mg 12/20 Inactiv e 2023 80398 10143 1 4 times a day By Mouth False Calcium citrate 250 mg tablet [generic] Once daily TAKE 4 TABLETS (1000MG) BY MOUTH For SUPPLEMENT 1000 MG 06/26 Inactiv e 2023 56421 04641 6 Once daily By Mouth False Dulcolax (bisacodyl) 10 mg rectal suppository 10 mg Rectal Once daily For CONSTIPATION *MAY HOLD FOR LOOSE STOOLS* 10 mg 2023 Active 2023 98662 37954 1 Once daily Rectal False Gabapentin 300 mg capsule [generic] 300 mg By Mouth 3 times a day For NEUROPATHY 300 mg 2023 Active 2023 85924 32494 4 3 times a day By Mouth False Potassium citrate ER 15 mEq (1,620 mg) tablet,exte nded release [generic] 15 mEq By Mouth 3 times a day For SUPPLEMENT/DI URETIC USE/HYPOCITRA URIA 15 mEq 06/11 Inactiv e 2023 49070 86301 1 3 times a day By Mouth False Potassium chloride ER 20 mEq tablet,exte nded release [generic] 20 mEq By Mouth 3 times a day *DO NOT CRUSH, CHEW OR BREAK* For SUPPLEMENT 20 mEq 12/18 Inactiv e 2023 41566 45815 1 3 times a day By Mouth False Tizanidine 4 mg tablet [generic] 4 mg By Mouth Once daily For MUSCLE SPASMS 4 mg 2023 Active 2023 14728 09213 0 Once daily By Mouth False Tylenol 325 mg tablet 2 tabs By Mouth Every 4 hours as needed For Fever >100 DO NOT EXCEED 3000 MG APAP/24 Hours 2 tabs 12/20 Inactiv e 2023 35713 34970 0 Every 4 hours as needed By Mouth False Dulcolax (bisacodyl) 10 mg rectal suppository Daily as needed For Constipation 1 sup 12/20 Inactiv e 2023 05163 57127 1 Daily as needed Rectal False Fleet Enema 19 gram-7 gram/118 mL 1 Rectal Daily as neededFor Constipation 1 12/20 Inactiv e 2023 40519 65876 6 Daily as needed Rectal False Milk of Magnesia 400 mg/5 mL oral suspension [Magnesium hydroxide] PRN 30ml By Mouth Daily as needed for constipation one time daily if no BM, on day 4 of no BM (PRN refer to instructions) For Constipation For Constipatioin 30ml 12/20 Inactiv e 2023 42151 48608 6 1 time By Mouth False Melatonin 3 mg tablet [generic] 3 mg By Mouth Once daily As Needed For INSOMNIA 3 mg 12/20 Inactiv e 2023 91907 58449 8 Once daily By Mouth False Hydrocortis one 1 % topical cream [generic] 1 % Rectal Four times daily as needed For hemorroid pain 1 % 12/20 Inactiv e 2023 59446 49367 1 Four times daily as needed Rectal False X-STGH ANTACID 750MG CHEW TAKE (1) TABLET BY MOUTH THREE TIMES DAILY NEEDED FOR INDIGESTION 12/20 Inactiv e 2023 32130 29191 4 Three times daily as needed Saline Mist 0.65 % nasal spray aerosol 0.65 % Nares Four times daily as needed For DRYNESS 0.65 % 12/20 Inactiv e 2023 77226 67395 8 Four times daily as needed Nares False Vicks Vaporub 4.7 %-1.2 %-2.6 % topical ointment Apply topically to chest Three times daily as needed For CONGESTION 4.7-1.2 -2.6 12/20 Inactiv e 2023 79421 88010 1 Three times daily as needed Topica l False VITAMIN D3 2000U CAP TAKE ONE (1) CAPSULE BY MOUTH DAILY* DO NOT CRUSH, CHEW OR BREAK* For Supplement 1 capsule 12/19 Inactiv e 2023 86706 96661 0 Once daily By Mouth False Potassium chloride ER 20 mEq tablet,exte nded release(par t/cryst) [generic] TAKE (1) TABLET BY MOUTH THREE TIMES DAILY (MORNING, AFTERNOON, EVENING)*DO NOT CRUSH, CHEW, OR BREAK* For SUPPLEMENT 20 MEQ 06/11 Inactiv e 2023 71981 53593 5 3 times a day By Mouth False Aspirin 81 mg tablet,camron yed release [generic] TAKE ONE (1) TABLET BY MOUTH ONCE DAILY*DO NOT CRUSH, CHEW OR BREAK* For CAD 81 MG 12/22 Inactiv e 2023 93315 40753 0 Once daily By Mouth False Furosemide 20 mg tablet [generic] TAKE 1 AND 1/2 TABLETS (30MG) BY MOUTH ONCE DAILY For CHF 30mg 2023 Active 2023 95364 09709 1 Once daily By Mouth False Polyethylen e glycol 3350 17 gram/dose oral powder [generic] MIX 17 GRAMS (1 CAPFUL) IN 60Z OF LIQUID AND DRINK BY MOUTH ONCE DAILY *HOLD FOR LOOSE STOOLS* For constipation 17 g 2023 Active 2023 23930 41760 3 Once daily By Mouth False Vitamin D3 50 mcg (2,000 unit) capsule Once daily TAKE ONE (1) CAPSULE BY MOUTH DAILY* DO NOT CRUSH, CHEW OR BREAK* For Supplement 1 capsule 02/07 Inactiv e 2023 33653 14932 2 Once daily By Mouth False Fleet Enema 19 gram-7 gram/118 mL 1 Rectal Daily as neededFor Constipation 1 2023 0000 Active 2023 17157 84709 6 Daily as needed Rectal False Tums E-X 300 mg (as calcium carbonate 750 mg) chewable tablet 1 tab By Mouth TAKE (1) TABLET BY MOUTH THREE TIMES DAILY NEEDED FOR INDIGESTION 1 tab 202300 /0000 Active 2023 60620 95231 1 Three times daily as needed By Mouth False Tylenol 325 mg tablet 2 tabs By Mouth Every 4 hours as needed For Fever >100 DO NOT EXCEED 3000 MG APAP/24 Hours 2 tabs 202300 /0000 Active 2023 42497 25964 0 Every 4 hours as needed By Mouth False Vicks Vaporub 4.7 %-1.2 %-2.6 % topical ointment Apply topically to chest Three times daily as needed For CONGESTION topical 202300 Active 2023 94711 08400 1 Three times daily as needed Topica l False Tylenol 325 mg tablet 2 tabs By Mouth Every 4 hours as needed For DX- PAIN PRN FOR MILD PAIN, DO NOT EXCEED 3000MG APAP/24 HOURS 2 tabs 202300 Active 2023 27142 46062 0 Every 4 hours as needed By Mouth False Tramadol 50 mg tablet [generic] 1 tab By Mouth Every 4 hours as needed For DX- PAIN 5-10 1 tab 03/10 Inactiv e 2023 34301 70053 0 Every 4 hours as needed By Mouth False Saline Mist 0.65 % nasal spray aerosol 2 sprays Nares Four times daily as needed For DRYNESS 2 sprays 202300 / Active 2023 45292 32196 8 Four times daily as needed Nares False Dulcolax (bisacodyl) 10 mg rectal suppository Daily as needed For Constipation 1 sup 202300 / Active 2023 85994 88219 1 Daily as needed Rectal False Hydrocortis one-pramoxi ne 1 %-1 % rectal cream [generic] 1 mague Rectal Four times daily as needed For hemorroid pain 1 mague 202300 /0000 Active 2023 46775 65596 4 Four times daily as needed Rectal False Melatonin 3 mg tablet [generic] 1 tab By Mouth At bedtime as needed For INSOMNIA 1 tab 12/24 Inactiv e 2023 65284 21507 8 At bedtime as needed By Mouth False Milk of Magnesia 400 mg/5 mL oral suspension 30ml By Mouth Daily as needed Daily as needed for constipation one time daily if no BM, on day 4 of no BM (PRN refer to instructions) For Constipation For Constipatioin 30ml 2023 Active 2023 06269 39158 2 Daily as needed By Mouth False Baclofen 20 mg tablet [generic] 20 mg By Mouth 4 times a day For MUSCLE SPASMS 20 mg 2023 Active 2023 59955 49851 1 4 times a day By Mouth False Melatonin 3 mg tablet [generic] 1 tab By Mouth At bedtime as needed For INSOMNIA 1 tab 2023 Active 2023 26803 83443 8 At bedtime as needed By Mouth False Bactrim DS 800 mg-160 mg tablet 1 tab By Mouth Twice daily For URINARY TRACT INFECTION, SITE NOT SPECIFIED 1 tab 01/06 Inactiv e 2023 61797 96942 1 Twice daily By Mouth N39.0 False Cefdinir 300 mg capsule [generic] 300 mg By Mouth Twice daily For UTI 300 mg 01/07 Inactiv e 2023 28389 52119 0 Twice daily By Mouth False Cefdinir 300 mg capsule [generic] 300 mg By Mouth Twice daily For UTI 300 mg 01/17 Inactiv e 2023 30630 44900 0 Twice daily By Mouth False Zyrtec 10 mg tablet 10 mg By Mouth Once daily For sinus congestion 10 mg 01/22 Inactiv e 2023 22098 46132 0 Once daily By Mouth False Tobramycin 0.3 %-dexametha sone 0.1 % eye drops,suspe nsion [generic] 0.3-0.1 % Left Eye 4 times a day For eye infection 0.3-0.1 % 02/05 Inactiv e 2023 97423 74463 5 4 times a day Left Eye False Fluconazole 150 mg tablet [generic] 150 mg By Mouth 1 time For yeast infection 150 mg 02/15 Inactiv e 2023 47428 95722 2 1 time By Mouth False Tramadol 50 mg tablet [generic] 1 tab By Mouth Every 4 hours as needed For DX- PAIN 5-10 1 tab 2023 00/00 /0000 Active 2023 86029 40059 0 Every 4 hours as needed By Mouth False Tobramycin 0.3 %-dexametha sone 0.1 % eye drops,suspe nsion [generic] 1 drop Left Eye 4 times a day For Inflammation of left eye 1 drop 05/08 Inactiv e 2023 22312 27712 5 4 times a day Left Eye False Voltaren Arthritis Pain 1 % topical gel 2 gm Topical Twice daily to rigth shoulder for 2 weeks For pain 2 gm 05/08 Inactiv e 2023 90324 25362 1 Twice daily Topica l False Chlorthalid one 25 mg tablet [generic] 12.5mg By Mouth Once daily For HTN 12.5mg 05/06 Inactiv e 2023 55553 75709 0 Once daily By Mouth False Chlorthalid one 25 mg tablet [generic] 12.5mg By Mouth Once daily For HTN 12.5mg 05/07 Inactiv e 2023 10425 87916 0 Once daily By Mouth False Chlorthalid one 25 mg tablet [generic] 05/07 Inactiv e 2023 97846 95562 0 Chlorthalid one 25 mg tablet [generic] 12.5mg By Mouth Once daily For HTN 12.5mg 06/26 Inactiv e 2023 14126 67788 0 Once daily By Mouth False Norvasc 5 mg tablet 5mg By Mouth Once daily, hold medication if systolic is less than 90 For HYPERTENSIVE HEART DISEASE WITHOUT HEART FAILURE 5mg 06/03 Inactiv e 2023 86265 62684 1 Once daily By Mouth I11.9 False Norvasc 5 mg tablet 5mg By Mouth Once daily, hold medication if systolic is less than 90 For HYPERTENSIVE HEART DISEASE WITHOUT HEART FAILURE 5mg 06/03 Inactiv e 2023 13703 39847 1 Once daily By Mouth I11.9 False Norvasc 5 mg tablet 5mg By Mouth Once daily, hold medication if systolic is less than 90 For HYPERTENSIVE HEART DISEASE WITHOUT HEART FAILURE 5mg 06/26 Inactiv e 2023 74483 26098 1 Once daily By Mouth I11.9 False [...] 10 mg 2023 00/00 /0000 Active 2023 07871 79874 1 Once daily By Mouth False DISCONTINUE [...] CAD 81 mg 06/14 Inactiv e 2023 37227 93443 9 Once daily By Mouth False Aspirin 81 mg tablet,camron yed release [generic] 06/14 Inactiv e 2023 16939 72503 9 Aspirin 81 mg tablet,camron yed release [generic] 81 mg By Mouth Once daily Do not crush, chew, or break For CAD 81 mg 06/154 Inactiv e 2023 10484 48826 9 Once daily By Mouth False Cefpodoxime 200 mg tablet [generic] 200mg By Mouth Twice daily For UTI 200mg 07/04 Inactiv e 2023 87763 98550 0 Twice daily By Mouth False Calcium citrate 250 mg tablet [generic] 06/26 Inactiv e 2023 85147 91419 6 Calcium citrate 250 mg tablet [generic] Once daily TAKE 4 TABLETS (1000MG) BY MOUTH For SUPPLEMENT 500 MG 2023 Active 2023 56891 91466 6 Once daily By Mouth False Norvasc 5 mg tablet 7.5 mg By Mouth Once daily Hold medication if SBP <90 For HYPERTENSIVE HEART DISEASE WITHOUT HEART FAILURE 7.5 mg 06/30 Inactiv e 2023 06593 02196 1 Once daily By Mouth I11.9 False Norvasc 5 mg tablet 7.5 mg By Mouth Once daily Hold medication if SBP <90 For HYPERTENSIVE HEART DISEASE WITHOUT HEART FAILURE 7.5 mg 07/06 Inactiv e 2023 36043 10702 1 Once daily By Mouth I11.9 False Simethicone 125 mg capsule [generic] 2 capule By Mouth Twice daily as needed For bloating/gas pain 2 capule 2023 Active 2023 72488 74812 0 Twice daily as needed By Mouth False Cepacol Sore Throat (benzocaine -menthol) 15 mg-2.6 mg lozenges 2 lozenges By Mouth Every 6 hours as needed For sore throat 2 lozenge s 2023 Active 2023 13676 24170 6 Every 6 hours as needed By Mouth False Cefepime 1 gram solution for injection [generic] 1g Intramuscular Every 12 hours 1g intramuscular ly ever 12 hours For UTI 1g 07/06 Inactiv e 2023 22366 67692 4 Every 12 hours Intram uscula r False Cefepime 1 gram solution for injection [generic] 07/06 Inactiv e 2023 34746 84351 4 Cefepime 1 gram solution for injection [generic] 1g Intramuscular Every 12 hours 1g intramuscular ly ever 12 hours For UTI Reconstitute with 2.4 ML of NSS. 1g 07/08 Inactiv e 2023 35478 42415 4 Every 12 hours Intram uscula r False Norvasc 5 mg tablet 07/06 Inactiv e 2023 74738 79513 1 I11.9 Norvasc 5 mg tablet 7.5 mg By Mouth Once daily Hold medication if SBP <90 For HYPERTENSIVE HEART DISEASE WITHOUT HEART FAILURE 7.5 mg 2023 00 /0000 Active 2023 17045 96337 1 Once daily By Mouth I11.9 False Cefepime 1 gram solution for injection [generic] 07/08 Inactiv e 2023 30440 99114 4 Cefepime 1 gram solution for injection [generic] 1g Intramuscular Every 12 hours 1g intramuscular ly ever 12 hours For UTI Reconstitute with 2.4 ML of NSS. 1g 07/08 Inactiv e 2023 42919 21421 4 Every 12 hours Intram uscula r False Cefepime 1 gram solution for injection [generic] 07/08 Inactiv e 2023 87928 03365 4 Cefepime 1 gram solution for injection [generic] 1g Intramuscular Every 12 hours 1g intramuscular ly ever 12 hours For UTI Reconstitute with 2.4 ML of NSS. 1g 07/11 Inactiv e 2023 00567 64714 4 Every 12 hours Intram uscula r False Fleet Enema 19 gram-7 gram/118 mL 1 Rectal 1 time For constipation 1 07/16 Inactiv e 2024 00072 54726 6 1 time Rectal False Fleet Enema 19 gram-7 gram/118 mL 1 Rectal 1 time For constipation 1 07/17 Inactiv e 2024 41998 83509 6 1 time Rectal False Nystatin 100,000 unit/gram topical cream [generic] 100,000 unit Topical As Needed For DX- EXCORIATION 100,000 unit 12/12 Inactiv e 2023 98541 94318 5 Topica l False Vicks Vaporub 4.7 %-1.2 %-2.6 % topical ointment 4.7-1.2-2.6 Topical 3 times a day As Needed For DX- CONGESTION 4.7-1.2 -2.6 12/12 Inactiv e 2023 17207 45970 1 3 times a day Topica l False Ketoconazol e 2 % shampoo [generic] APPLY SHAMPOO TOPICALLY TO SCALP DURING HAIR WASHINGDX: ELVIA DERM OF SCALP For DX- ELVIA DERM OF SCALP 12/12 Inactiv e 2023 03745 82288 4 Topica l False THERA SILICONE SKIN GUARD Topical Twice daily 1 APPLICATION TOPICALLY IN THE MORNING AND AT BEDTIME TO SCROTUM For DX- PREVENTION 2023 0000 0000 Active 2023 Twice daily Topica l False Selenium sulfide 2.5 % lotion [generic] 2.5 % Topical EVERY MONDAY, MONDAY AND MONDAY AFTER SHOWER For DANDRUFF 2.5 % 2023 00/00 /0000 Active 2023 79014 15643 4 3 times a week Topica l False Nystatin (bulk) 100 million unit powder [generic] 100 million Topical Twice daily as needed For EXOCORATION 100 million 12/20 Inactiv e 2023 31778 52975 1 Twice daily as needed Topica l False Ketoconazol e 2 % shampoo [generic] Once daily APPLY SHAMPOO TOPICALLY TO SCALP DURING HAIR WASHING ON SHOWER DAYS- , , MON For ELVIA DERM OF SCAP 2 % 2023 00/00 /0000 Active 2023 08020 79850 4 Once daily Topica l False Nystatin 100,000 unit/gram topical cream [generic] 1 mague Topical Twice daily as needed For EXOCORATION 1 mague 06/05 Inactiv e 2023 69776 53003 5 Twice daily as needed Topica l False Nystatin 100,000 unit/gram topical powder [generic] 100,000 unit Topical Twice daily to scrotum with AM and PM care For Scrotal excoriation 100,000 unit 06/05 Inactiv e 2023 95863 20753 5 Twice daily Topica l False Problems [...] adjustment of urinary device 07/21/2023 Active Z79.01 custodial (current) use of anticoagulants 07/21 Active N31.9 [...] weight Temperature SpO2 Blood Sugar Pulse Respirations 72359 210 89648 6 80.00 mm[Hg] - Sitting 132.00 mm[Hg] - Sitting 94255 211 64952 5 78.00 mm[Hg] - Sitting 125.00 mm[Hg] - Sitting 42183 216 14367 1 254.10 [place] 75506 216 90960 2 79.00 mm[Hg] - Sitting 157.00 mm[Hg] - Sitting 73 NI 254.10 NI 36.30 Tympanic 95.00 % 72.00/ min 16.00/min 57112 216 70725 4 98.80 Tympanic 66494 216 44154 2 78.00 mm[Hg] - Sitting 164.00 mm[Hg] - Sitting 23640 217 72438 3 98.20 Tympanic 64632 217 21510 5 73.00 mm[Hg] - Sitting 159.00 mm[Hg] - Sitting 61975 217 90123 9 98.40 Forehead Scan 06845 218 13759 3 97.90 Tympanic 12767 218 62373 5 77.00 mm[Hg] - Sitting 137.00 mm[Hg] - Sitting 05626 219 38685 0 97.70 Tympanic 54408 219 33708 6 97.60 Tympanic 19964 219 02645 4 76.00 mm[Hg] - Sitting 139.00 mm[Hg] - Sitting 21234 219 46095 4 97.80 Forehead Scan 34473 220 23132 9 97.90 Tympanic 66626 220 45159 9 76.00 mm[Hg] - Sitting 138.00 mm[Hg] - Sitting 76484 220 39622 6 98.10 Tympanic 20419 221 24822 5 67.00 mm[Hg] - Sitting 142.00 mm[Hg] - Sitting 63704 221 26281 8 98.20 Tympanic 09515 221 80246 0 98.30 Tympanic 31717 222 66124 7 98.20 Tympanic 37782 222 16983 8 97.90 Tympanic 65220 223 65732 3 98.20 Tympanic 10674 223 66359 3 98.00 Tympanic 05163 224 76499 0 59.00 mm[Hg] - Sitting 111.00 mm[Hg] - Sitting 98.40 Forehead Scan 95.00 % 56.00/ min 18.00/min 16327 224 70597 9 98.20 Forehead Scan 35914 224 66856 3 97.90 Tympanic 83814 225 74783 4 98.20 Tympanic 78315 225 24381 8 97.50 Forehead Scan 76358 228 23628 0 55.00 mm[Hg] - Sitting 118.00 mm[Hg] - Sitting 98.40 Tympanic 69.00/ min 60654 229 67351 8 78.00 mm[Hg] - Sitting 152.00 mm[Hg] - Sitting 66630 230 33864 0 62.00 mm[Hg] - Sitting 122.00 mm[Hg] - Sitting 27089 231 04743 7 72.00 mm[Hg] - Lying Down 140.00 mm[Hg] - Lying Down 45346 101 06979 3 97.70 Forehead Scan 99330 101 03311 1 254.10 NI 69.00/ min 10527 101 99489 9 72.00 mm[Hg] - Sitting 142.00 mm[Hg] - Sitting 97.70 Tympanic 18.00/min 39122 101 21420 3 72.00 mm[Hg] - Lying Down 142.00 mm[Hg] - Lying Down 00999 102 00473 8 68.00 mm[Hg] - Lying Down 152.00 mm[Hg] - Lying Down 70359 103 47153 5 74.00 mm[Hg] - Sitting 158.00 mm[Hg] - Sitting 31803 104 49667 9 78.00 mm[Hg] - Sitting 144.00 mm[Hg] - Sitting 97487 105 39754 5 68.00 mm[Hg] - Sitting 138.00 mm[Hg] - Sitting 36870 106 45111 1 70.00 mm[Hg] - Sitting 138.00 mm[Hg] - Sitting 64377 107 86094 1 67.00 mm[Hg] - Sitting 142.00 mm[Hg] - Sitting 94214 108 28320 0 74.00 mm[Hg] - Sitting 143.00 mm[Hg] [...]
--- OUTSIDE RECORDS SUMMARY | 2024-07-26 11:20 | External Medical Summary | Continuity Of Care Document ---
Author Name Unknown Address [address] [place] [address] Organization [facility] () Care Team Providers Care Orchestra Musician Name Role Phone DO Pritchett Amy Primary Care Provider [phone] Allergies Allergy Reaction Start Date End Date Status AMINOGLYCOSIDES Active CIPRO Active GENTAMICIN Active NSAIDS (NON-STEROIDAL ANTI-INFLAMMATORY DRUG) 0 Active IBUPROFEN Active QUINOLONES Active VALIUM Active Medications Medication Instructions Dosage Start Date End Date Status Order Date Drug Code Frequency Route of Admin Diagnosis Code Substitutions Allowed Spikevax [id number](1 2y up)(PF) 50 mcg/0.5 mL intramuscul ar suspension [COVID [id number](12 up)(andu)(P F)] 0.5mL Intramuscular 1 time Monitory 15 Minutes post injection for adverse effects; record site/temp For COVID 19 PREVENTION 0.5mL 01/02 Inactiv e 2023 46424 79771 4 1 time Intram uscula r False [facility] - Nurse initials indicate verificatio n that [id number] vaccine was administere d by [facility] jon 1 Intramuscular 1 time ( Indicate vaccine type) For vaccine 1 05/03 Inactiv e 2023 1 time Intram uscula r False Lisinopril 40 mg tablet [generic] TAKE ONE (1) TABLET BY MOUTH IN THE MORNING. For DX- HTN 1 2023 Active 2023 33888 10122 1 Once daily By Mouth False Tizanidine 2 mg tablet [generic] TAKE ONE (1) TABLET BY MOUTH ONCE DAILY For MUSCLE SPASM 1 2023 Active 2023 69441 17383 0 Once daily By Mouth M62.838 False Tamsulosin 0.4 mg capsule [generic] TAKE (1) CAPSULE BY MOUTH AT BEDTIME For SPASMS 1 2023 Active 2023 95305 75639 0 Once daily By Mouth False Aspirin 81 mg tablet Once daily 1 TABLET BY MOUTH IN THE MORNING For DX- CAD DO NOT CRUSH, CHEW OR BREAK 81 mg 06/12 Inactiv e 2023 Once daily By Mouth False Baclofen 20 mg tablet [generic] 20 mg By Mouth 4 times a day For DX- MUSCLE SPASMS 20 mg 12/12 Inactiv e 2023 20430 17813 1 4 times a day By Mouth False Calcium citrate 250 mg tablet Once daily 4 TABLET BY MOUTH For DX- SUPPLEMENT 250 mg calci 12/12 Inactiv e 2023 Once daily By Mouth False Co Q-10 100 mg capsule 100 mg By Mouth Once daily For DX- SUPPLEMENT 100 mg 06/20 Inactiv e 2023 66377 93133 5 Once daily By Mouth False Furosemide 20 mg tablet [generic] 20 mg By Mouth Once daily For DX-CHF 20 mg 12/12 Inactiv e 2023 32697 93518 0 Once daily By Mouth False Gabapentin 300 mg capsule [generic] 300 mg By Mouth 3 times a day For DX- NEUROPATHY 300 mg 12/12 Inactiv e 2023 18356 61371 4 3 times a day By Mouth False Loratadine 10 mg tablet [generic] 10 mg By Mouth Once daily For DX- ALLERGIES 10 mg 2023 Active 2023 05174 70785 1 Once daily By Mouth False Miralax 17 gram/dose oral powder 17 gram/dose By Mouth IN THE MORNING Mix 1 TABLESPOON IN 8 OZ OF FLUID HOLD FOR LOOSE STOOLS For DX- CONSTIPATION 17 gram/do se 12/12 Inactiv e 2023 17688 64951 0 Once daily By Mouth False Paroxetine 30 mg tablet [generic] 30 mg By Mouth Once daily For DX- DEPRESSION 30 mg 2023 00/00 /0000 Active 2023 56580 14082 3 Once daily By Mouth False Potassium citrate ER 15 mEq (1,620 mg) tablet,exte nded release [generic] 15 mEq By Mouth 3 times a day For DX- SUPPLEMENT/DI URETIC USE/ HYPOCITRAUIRA DO NOT CRUSH 15 mEq 12/12 Inactiv e 2023 36468 96825 1 3 times a day By Mouth [...] For DX- DANDRUFF 12/12 Inactiv e 2023 62942 81796 4 3 times a week Topica l False Acetaminoph en 325 mg tablet [generic] TAKE 2 TABS (650MG) BY MOUTH EVERY 4 HOURS NEEDED FOR TEMP >100 NOT TO EXCEED 3GM/24HRS TAKE 2 TABS (650MG) BY MOUTH EVERY 4 HOURS NEEDED FOR TEMP >100 NOT TO EXCEED 3GM/24HRS For DX-FEVER 2 12/12 Inactiv e 2023 37441 47178 0 By Mouth False MILK OF MAGNESIA ADMINISTER 30 ML BY MOUTH ONCE DAILY NEEDED FOR CONSTIPATION X3 DAYS WITH NO BM. For DX- CONSTIPATION 30ML 12/12 Inactiv e 2023 78933 56363 9 By Mouth False Enema Disposable 19 gram-7 gram/118 mL ADMINISTER ONE ENEMA RECTALLY ONCE DAILY NEEDED FOR CONSTIPATION ON DAY 6 OF NO BM For DX- CONSTIPATION 12/12 Inactiv e 2023 91895 68668 1 Rectal False TUMS EXTRA STR 750MG TAKE (1) TABLET BY MOUTH THREE TIMES DAILY NEEDED FOR INDIGESTION For DX- INDIGESTION 1 12/12 Inactiv e 2023 31043 14367 8 By Mouth False Vitamin D3 25 [...] CONSTIPATION 10 mg 12/12 Inactiv e 2023 47910 28732 1 Rectal False Melatonin 3 mg tablet [generic] 3 mg By Mouth As Needed For DX-INSOMMIA 3 mg 12/12 Inactiv e 2023 46070 95410 8 By Mouth False Hydrocortis one 1 % topical cream [generic] 1 % Topical As Needed For DX- PAIN 1 % 12/12 Inactiv e 2023 34518 80941 1 Topica l False HYDROCORTIS ONE/PARMOXI NE [...] 5-10 50 mg 12/20 Inactiv e 2023 46122 67831 0 Every 4 hours as needed By Mouth False Tylenol 325 mg tablet 325 mg By Mouth Every 4 hours as needed For DX- PAIN PRN FOR MILD PAIN, DO NOT EXCEED 3000MG APAP/24 HOURS 325 mg 12/20 Inactiv e 2023 13056 63137 0 Every 4 hours as needed By Mouth False Baclofen 20 mg tablet [generic] 20 mg By Mouth 4 times a day For MUSCLE SPASMS 20 mg 12/20 Inactiv e 2023 85522 22203 1 4 times a day By Mouth False Calcium citrate 250 mg tablet [generic] Once daily TAKE 4 TABLETS (1000MG) BY MOUTH For SUPPLEMENT 1000 MG 06/26 Inactiv e 2023 04897 91910 6 Once daily By Mouth False Dulcolax (bisacodyl) 10 mg rectal suppository 10 mg Rectal Once daily For CONSTIPATION *MAY HOLD FOR LOOSE STOOLS* 10 mg 2023 Active 2023 76444 32788 1 Once daily Rectal False Gabapentin 300 mg capsule [generic] 300 mg By Mouth 3 times a day For NEUROPATHY 300 mg 2023 Active 2023 03011 80073 4 3 times a day By Mouth False Potassium citrate ER 15 mEq (1,620 mg) tablet,exte nded release [generic] 15 mEq By Mouth 3 times a day For SUPPLEMENT/DI URETIC USE/HYPOCITRA URIA 15 mEq 06/11 Inactiv e 2023 22874 91917 1 3 times a day By Mouth False Potassium chloride ER 20 mEq tablet,exte nded release [generic] 20 mEq By Mouth 3 times a day *DO NOT CRUSH, CHEW OR BREAK* For SUPPLEMENT 20 mEq 12/18 Inactiv e 2023 09919 84891 1 3 times a day By Mouth False Tizanidine 4 mg tablet [generic] 4 mg By Mouth Once daily For MUSCLE SPASMS 4 mg 2023 Active 2023 94768 14922 0 Once daily By Mouth False Problems Code [...] adjustment of urinary device 07/21/2023 Active Z79.01 nursing home (current) use of anticoagulants 07/21 Active [...] weight Temperature SpO2 Blood Sugar Pulse Respirations 208 49112 9 82.00 mm[Hg] - Sitting 128.00 mm[Hg] - Sitting 209 21800 2 78.00 mm[Hg] - Sitting 130.00 mm[Hg] - Sitting 210 76371 6 80.00 mm[Hg] - Sitting 132.00 mm[Hg] - Sitting 67399 211 89096 5 78.00 mm[Hg] - Sitting 125.00 mm[Hg] - Sitting 47129 216 16464 1 [place]10 [place] [address] 216 64867 2 79.00 mm[Hg] - Sitting 157.00 mm[Hg] - Sitting 73 NI 254.10 NI 36.30 Tympanic 95.00 % 72.00/ min 16.00/min 55867 216 89943 4 98.80 Tympanic 13936 216 85579 2 78.00 mm[Hg] - Sitting 164.00 mm[Hg] - Sitting 50067 217 55417 3 98.20 Tympanic 34831 217 83183 5 73.00 mm[Hg] - Sitting 159.00 mm[Hg] - Sitting 81149 217 26986 9 98.40 Forehead Scan 37536 218 48899 3 97.90 Tympanic 72667 218 23389 5 77.00 mm[Hg] - Sitting 137.00 mm[Hg] - Sitting 11737 219 96080 0 97.70 Tympanic 63363 219 19008 6 97.60 Tympanic 54934 219 64805 4 76.00 mm[Hg] - Sitting 139.00 mm[Hg] - Sitting 44147 219 05571 4 97.80 Forehead Scan 90272 220 09123 9 97.90 Tympanic 75283 220 23520 9 76.00 mm[Hg] - Sitting 138.00 mm[Hg] - Sitting 97780 220 34427 6 98.10 Tympanic 57702 221 41190 5 67.00 mm[Hg] - Sitting 142.00 mm[Hg] - Sitting 45624 221 40497 8 98.20 Tympanic 34391 221 80398 0 98.30 Tympanic 79859 222 21061 7 98.20 Tympanic 65687 222 23484 8 97.90 Tympanic 79522 223 44210 3 98.20 Tympanic 30702 223 96067 3 98.00 Tympanic 74415 224 17441 0 59.00 mm[Hg] - Sitting 111.00 mm[Hg] - Sitting 98.40 Forehead Scan 95.00 % 56.00/ min 18.00/min 41440 224 29122 9 98.20 Forehead Scan 65081 224 95850 3 97.90 Tympanic 72444 225 62256 4 98.20 Tympanic 24780 225 76375 8 97.50 Forehead Scan 77833 228 63359 0 55.00 mm[Hg] - Sitting 118.00 mm[Hg] - Sitting 98.40 Tympanic 69.00/ min 60001 229 82750 8 78.00 mm[Hg] - Sitting 152.00 mm[Hg] - Sitting 63390 230 39817 0 62.00 mm[Hg] - Sitting 122.00 mm[Hg] - Sitting 05156 231 78085 7 72.00 mm[Hg] - Lying Down 140.00 mm[Hg] - Lying Down 44220 101 15090 3 97.70 Forehead Scan 67035 101 91584 1 254.10 NI 69.00/ min 77694 101 30265 9 72.00 mm[Hg] - Sitting 142.00 mm[Hg] - Sitting 97.70 Tympanic 18.00/min 72670 101 42159 3 72.00 mm[Hg] - Lying Down 142.00 mm[Hg] - Lying Down 81803 102 72415 8 68.00 mm[Hg] - Lying Down 152.00 mm[Hg] - Lying Down 57343 103 58597 5 74.00 mm[Hg] - Sitting 158.00 mm[Hg] - Sitting 54031 104 73690 9 78.00 mm[Hg] - Sitting 144.00 mm[Hg] - Sitting 77513 105 18913 5 68.00 mm[Hg] - Sitting 138.00 mm[Hg] - Sitting 98363 106 73109 1 70.00 mm[Hg] - Sitting 138.00 mm[Hg] - Sitting 78163 107 55896 1 67.00 mm[Hg] - Sitting 142.00 mm[Hg] [...]
--- OUTSIDE RECORDS SUMMARY | 2024-07-26 11:20 | External Medical Summary | Continuity Of Care Document ---
Author Name Unknown Address [address] [address] Organization [facility] () Care Team Providers Care Poker Supervisor Name Role Phone DO Pritchett Amy Primary Care Provider [phone] Allergies Allergy Reaction Start Date End Date Status AMINOGLYCOSIDES Active CIPRO Active GENTAMICIN Active NSAIDS (NON-STEROIDAL ANTI-INFLAMMATORY DRUG) 0 Active IBUPROFEN Active QUINOLONES Active VALIUM Active Medications Medication Instructions Dosage Start Date End Date Status Order Date Drug Code Frequency Route of Admin Diagnosis Code Substitutions Allowed Spikevax 7059-3083(1 2y up)(PF) 50 mcg/0.5 mL intramuscul ar suspension [COVID qhn57-60(12 up)(andu)(P F)] 0.5mL Intramuscular 1 time Monitory 15 Minutes post injection for adverse effects; record site/temp For COVID 19 PREVENTION 0.5mL 01/02 Inactiv e 2023 91392 78222 4 1 time Intram uscula r False [facility] - Nurse initials indicate verificatio n that [id number] vaccine was administere d by [facility] Represent[facility] jon 1 Intramuscular 1 time ( Indicate vaccine type) For vaccine 1 05/03 Inactiv e 2023 1 time Intram uscula r False Lisinopril 40 mg tablet [generic] TAKE ONE (1) TABLET BY MOUTH IN THE MORNING. For DX- HTN 1 2023 Active 2023 70905 01881 1 Once daily By Mouth False Tizanidine 2 mg tablet [generic] TAKE ONE (1) TABLET BY MOUTH ONCE DAILY For MUSCLE SPASM 1 2023 Active 2023 45690 91748 0 Once daily By Mouth M62.838 False Tamsulosin 0.4 mg capsule [generic] TAKE (1) CAPSULE BY MOUTH AT BEDTIME For SPASMS 1 2023 Active 2023 94773 90148 0 Once daily By Mouth False Aspirin 81 mg tablet Once daily 1 TABLET BY MOUTH IN THE MORNING For DX- CAD DO NOT CRUSH, CHEW OR BREAK 81 mg 06/12 Inactiv e 2023 Once daily By Mouth False Baclofen 20 mg tablet [generic] 20 mg By Mouth 4 times a day For DX- MUSCLE SPASMS 20 mg 12/12 Inactiv e 2023 59380 04187 1 4 times a day By Mouth False Calcium citrate 250 mg tablet Once daily 4 TABLET BY MOUTH For DX- SUPPLEMENT 250 mg calci 12/12 Inactiv e 2023 Once daily By Mouth False Co Q-10 100 mg capsule 100 mg By Mouth Once daily For DX- SUPPLEMENT 100 mg 06/20 Inactiv e 2023 64224 51355 5 Once daily By Mouth False Furosemide 20 mg tablet [generic] 20 mg By Mouth Once daily For DX-CHF 20 mg 12/12 Inactiv e 2023 56636 95078 0 Once daily By Mouth False Gabapentin 300 mg capsule [generic] 300 mg By Mouth 3 times a day For DX- NEUROPATHY 300 mg 12/12 Inactiv e 2023 13004 82585 4 3 times a day By Mouth False Loratadine 10 mg tablet [generic] 10 mg By Mouth Once daily For DX- ALLERGIES 10 mg 2023 Active 2023 30417 80478 1 Once daily By Mouth False Miralax 17 gram/dose oral powder 17 gram/dose By Mouth IN THE MORNING Mix 1 TABLESPOON IN 8 OZ OF FLUID HOLD FOR LOOSE STOOLS For DX- CONSTIPATION 17 gram/do se 12/12 Inactiv e 2023 71804 09468 0 Once daily By Mouth False Paroxetine 30 mg tablet [generic] 30 mg By Mouth Once daily For DX- DEPRESSION 30 mg 2023 00/00 /0000 Active 2023 40054 93499 3 Once daily By Mouth False Potassium citrate ER 15 mEq (1,620 mg) tablet,exte nded release [generic] 15 mEq By Mouth 3 times a day For DX- SUPPLEMENT/DI URETIC USE/ HYPOCITRAUIRA DO NOT CRUSH 15 mEq 12/12 Inactiv e 2023 12407 74596 1 3 times a day By Mouth [...] For DX- DANDRUFF 12/12 Inactiv e 2023 94643 50215 4 3 times a week Topica l False Acetaminoph en 325 mg tablet [generic] TAKE 2 TABS (650MG) BY MOUTH EVERY 4 HOURS NEEDED FOR TEMP >100 NOT TO EXCEED 3GM/24HRS TAKE 2 TABS (650MG) BY MOUTH EVERY 4 HOURS NEEDED FOR TEMP >100 NOT TO EXCEED 3GM/24HRS For DX-FEVER 2 12/12 Inactiv e 2023 67257 53622 0 By Mouth False MILK OF MAGNESIA ADMINISTER 30 ML BY MOUTH ONCE DAILY NEEDED FOR CONSTIPATION X3 DAYS WITH NO BM. For DX- CONSTIPATION 30ML 12/12 Inactiv e 2023 29008 39273 9 By Mouth False Enema Disposable 19 gram-7 gram/118 mL ADMINISTER ONE ENEMA RECTALLY ONCE DAILY NEEDED FOR CONSTIPATION ON DAY 6 OF NO BM For DX- CONSTIPATION 12/12 Inactiv e 2023 40844 63315 1 Rectal False TUMS EXTRA STR 750MG TAKE (1) TABLET BY MOUTH THREE TIMES DAILY NEEDED FOR INDIGESTION For DX- INDIGESTION 1 12/12 Inactiv e 2023 55969 56135 8 By Mouth False Vitamin D3 25 [...] CONSTIPATION 10 mg 12/12 Inactiv e 2023 10757 68878 1 Rectal False Melatonin 3 mg tablet [generic] 3 mg By Mouth As Needed For DX-INSOMMIA 3 mg 12/12 Inactiv e 2023 60051 19449 8 By Mouth False Hydrocortis one 1 % topical cream [generic] 1 % Topical As Needed For DX- PAIN 1 % 12/12 Inactiv e 2023 41282 98249 1 Topica l False HYDROCORTIS ONE/PARMOXI NE [...] 5-10 50 mg 12/20 Inactiv e 2023 44409 83123 0 Every 4 hours as needed By Mouth False Tylenol 325 mg tablet 325 mg By Mouth Every 4 hours as needed For DX- PAIN PRN FOR MILD PAIN, DO NOT EXCEED 3000MG APAP/24 HOURS 325 mg 12/20 Inactiv e 2023 53468 66308 0 Every 4 hours as needed By Mouth False Baclofen 20 mg tablet [generic] 20 mg By Mouth 4 times a day For MUSCLE SPASMS 20 mg 12/20 Inactiv e 2023 28147 36963 1 4 times a day By Mouth False Calcium citrate 250 mg tablet [generic] Once daily TAKE 4 TABLETS (1000MG) BY MOUTH For SUPPLEMENT 1000 MG 06/26 Inactiv e 2023 52823 59088 6 Once daily By Mouth False Dulcolax (bisacodyl) 10 mg rectal suppository 10 mg Rectal Once daily For CONSTIPATION *MAY HOLD FOR LOOSE STOOLS* 10 mg 2023 Active 2023 03114 85038 1 Once daily Rectal False Gabapentin 300 mg capsule [generic] 300 mg By Mouth 3 times a day For NEUROPATHY 300 mg 2023 Active 2023 44274 70798 4 3 times a day By Mouth False Potassium citrate ER 15 mEq (1,620 mg) tablet,exte nded release [generic] 15 mEq By Mouth 3 times a day For SUPPLEMENT/DI URETIC USE/HYPOCITRA URIA 15 mEq 06/11 Inactiv e 2023 64364 00275 1 3 times a day By Mouth False Potassium chloride ER 20 mEq tablet,exte nded release [generic] 20 mEq By Mouth 3 times a day *DO NOT CRUSH, CHEW OR BREAK* For SUPPLEMENT 20 mEq 12/18 Inactiv e 2023 79678 35159 1 3 times a day By Mouth False Tizanidine 4 mg tablet [generic] 4 mg By Mouth Once daily For MUSCLE SPASMS 4 mg 2023 Active 2023 66330 48132 0 Once daily By Mouth False Tylenol 325 mg tablet 2 tabs By Mouth Every 4 hours as needed For Fever >100 DO NOT EXCEED 3000 MG APAP/24 Hours 2 tabs 12/20 Inactiv e 2023 90323 50755 0 Every 4 hours as needed By Mouth False Dulcolax (bisacodyl) 10 mg rectal suppository Daily as needed For Constipation 1 sup 12/20 Inactiv e 2023 74859 48011 1 Daily as needed Rectal False Fleet Enema 19 gram-7 gram/118 mL 1 Rectal Daily as neededFor Constipation 1 12/20 Inactiv e 2023 85058 01556 6 Daily as needed Rectal False Problems [...] weight Temperature SpO2 Blood Sugar Pulse Respirations 61662 208 38580 9 82.00 mm[Hg] - Sitting 128.00 mm[Hg] - Sitting 46023 209 03502 2 78.00 mm[Hg] - Sitting 130.00 mm[Hg] - Sitting 92796 210 71183 6 80.00 mm[Hg] - Sitting 132.00 mm[Hg] - Sitting 75897 211 11714 5 78.00 mm[Hg] - Sitting 125.00 mm[Hg] - Sitting 03354 216 67545 1 254.10 [place] [address] 216 73772 2 79.00 mm[Hg] - Sitting 157.00 mm[Hg] - Sitting 73 NI 254.10 NI 36.30 Tympanic 95.00 % 72.00/ min 16.00/min 71742 216 77840 4 98.80 Tympanic 45158 216 83336 2 78.00 mm[Hg] - Sitting 164.00 mm[Hg] - Sitting 88000 217 15879 3 98.20 Tympanic 27888 217 73712 5 73.00 mm[Hg] - Sitting 159.00 mm[Hg] - Sitting 44292 217 32161 9 98.40 Forehead Scan 12820 218 34773 3 97.90 Tympanic 83632 218 49018 5 77.00 mm[Hg] - Sitting 137.00 mm[Hg] - Sitting 02419 219 64294 0 97.70 Tympanic 99880 219 83128 6 97.60 Tympanic 16453 219 86804 4 76.00 mm[Hg] - Sitting 139.00 mm[Hg] - Sitting 98951 219 30395 4 97.80 Forehead Scan 32480 220 74789 9 97.90 Tympanic 16911 220 79727 9 76.00 mm[Hg] - Sitting 138.00 mm[Hg] - Sitting 37390 220 01522 6 98.10 Tympanic 28704 221 37625 5 67.00 mm[Hg] - Sitting 142.00 mm[Hg] - Sitting 48666 221 85500 8 98.20 Tympanic 09614 221 99208 0 98.30 Tympanic 36289 222 23017 7 98.20 Tympanic 88661 222 18484 8 97.90 Tympanic 94724 223 01230 3 98.20 Tympanic 01852 223 22653 3 98.00 Tympanic 17640 224 03889 0 59.00 mm[Hg] - Sitting 111.00 mm[Hg] - Sitting 98.40 Forehead Scan 95.00 % 56.00/ min 18.00/min 43857 224 60138 9 98.20 Forehead Scan 30078 224 54685 3 97.90 Tympanic 49880 225 57644 4 98.20 Tympanic 00039 225 48077 8 97.50 Forehead Scan 76073 228 77208 0 55.00 mm[Hg] - Sitting 118.00 mm[Hg] - Sitting 98.40 Tympanic 69.00/ min 36182 229 43785 8 78.00 mm[Hg] - Sitting 152.00 mm[Hg] - Sitting 15186 230 76465 0 62.00 mm[Hg] - Sitting 122.00 mm[Hg] - Sitting 82749 231 29045 7 72.00 mm[Hg] - Lying Down 140.00 mm[Hg] - Lying Down 90169 101 95913 3 97.70 Forehead Scan 64945 101 98174 1 254.10 NI 69.00/ min 26784 101 26487 9 72.00 mm[Hg] - Sitting 142.00 mm[Hg] - Sitting 97.70 Tympanic 18.00/min 05724 101 36388 3 72.00 mm[Hg] - Lying Down 142.00 mm[Hg] - Lying Down 87511 102 88212 8 68.00 mm[Hg] - Lying Down 152.00 mm[Hg] - Lying Down 88667 103 68382 5 74.00 mm[Hg] - Sitting 158.00 mm[Hg] - Sitting 80171 104 84316 9 78.00 mm[Hg] - Sitting 144.00 mm[Hg] - Sitting 08677 105 51842 5 68.00 mm[Hg] - Sitting 138.00 mm[Hg] - Sitting 32548 106 73696 1 70.00 mm[Hg] - Sitting 138.00 mm[Hg] - Sitting Immunizations Vaccine Date Status [...]
--- OUTSIDE RECORDS SUMMARY | 2024-07-26 11:20 | External Medical Summary | Continuity Of Care Document ---
Author Name Unknown Address [address] [place] [address] Organization [facility] () Care Team Providers Care Fashion Consultant Sales Name Role Phone DO Pritchett Amy Primary Care Provider [phone] Allergies Allergy Reaction Start Date End Date Status AMINOGLYCOSIDES Active CIPRO Active GENTAMICIN Active NSAIDS (NON-STEROIDAL ANTI-INFLAMMATORY DRUG) 0 Active IBUPROFEN Active QUINOLONES Active VALIUM Active Medications Medication Instructions Dosage Start Date End Date Status Order Date Drug Code Frequency Route of Admin Diagnosis Code Substitutions Allowed Spikevax 9321-1057(1 2y up)(PF) 50 mcg/0.5 mL intramuscul ar suspension [COVID [id number](12 up)(andu)(P F)] 0.5mL Intramuscular 1 time Monitory 15 Minutes post injection for adverse effects; record site/temp For COVID 19 PREVENTION 0.5mL 01/02 Inactiv e 2023 57270 91737 4 1 time Intram uscula r False [facility] - Nurse initials indicate verificatio n that [id number] vaccine was administere d by [facility] Representat jon 1 Intramuscular 1 time ( Indicate vaccine type) For vaccine 1 05/03 Inactiv e 2023 1 time Intram uscula r False Lisinopril 40 mg tablet [generic] TAKE ONE (1) TABLET BY MOUTH IN THE MORNING. For DX- HTN 1 2023 Active 2023 40815 39940 1 Once daily By Mouth False Tizanidine 2 mg tablet [generic] TAKE ONE (1) TABLET BY MOUTH ONCE DAILY For MUSCLE SPASM 1 2023 Active 2023 07086 75523 0 Once daily By Mouth M62.838 False Tamsulosin 0.4 mg capsule [generic] TAKE (1) CAPSULE BY MOUTH AT BEDTIME For SPASMS 1 2023 Active 2023 00465 34662 0 Once daily By Mouth False Aspirin 81 mg tablet Once daily 1 TABLET BY MOUTH IN THE MORNING For DX- CAD DO NOT CRUSH, CHEW OR BREAK 81 mg 06/12 Inactiv e 2023 Once daily By Mouth False Baclofen 20 mg tablet [generic] 20 mg By Mouth 4 times a day For DX- MUSCLE SPASMS 20 mg 12/12 Inactiv e 2023 17345 70720 1 4 times a day By Mouth False Calcium citrate 250 mg tablet Once daily 4 TABLET BY MOUTH For DX- SUPPLEMENT 250 mg calci 12/12 Inactiv e 2023 Once daily By Mouth False Co Q-10 100 mg capsule 100 mg By Mouth Once daily For DX- SUPPLEMENT 100 mg 06/20 Inactiv e 2023 59412 54192 5 Once daily By Mouth False Furosemide 20 mg tablet [generic] 20 mg By Mouth Once daily For DX-CHF 20 mg 12/12 Inactiv e 2023 15177 54440 0 Once daily By Mouth False Gabapentin 300 mg capsule [generic] 300 mg By Mouth 3 times a day For DX- NEUROPATHY 300 mg 12/12 Inactiv e 2023 91668 59668 4 3 times a day By Mouth False Loratadine 10 mg tablet [generic] 10 mg By Mouth Once daily For DX- ALLERGIES 10 mg 2023 Active 2023 04089 35574 1 Once daily By Mouth False Miralax 17 gram/dose oral powder 17 gram/dose By Mouth IN THE MORNING Mix 1 TABLESPOON IN 8 OZ OF FLUID HOLD FOR LOOSE STOOLS For DX- CONSTIPATION 17 gram/do se 12/12 Inactiv e 2023 91229 83635 0 Once daily By Mouth False Paroxetine 30 mg tablet [generic] 30 mg By Mouth Once daily For DX- DEPRESSION 30 mg 2023 00/00 /0000 Active 2023 93728 71107 3 Once daily By Mouth False Potassium citrate ER 15 mEq (1,620 mg) tablet,exte nded release [generic] 15 mEq By Mouth 3 times a day For DX- SUPPLEMENT/DI URETIC USE/ HYPOCITRAUIRA DO NOT CRUSH 15 mEq 12/12 Inactiv e 2023 71807 17652 1 3 times a day By Mouth [...] For DX- DANDRUFF 12/12 Inactiv e 2023 55326 81801 4 3 times a week Topica l False Acetaminoph en 325 mg tablet [generic] TAKE 2 TABS (650MG) BY MOUTH EVERY 4 HOURS NEEDED FOR TEMP >100 NOT TO EXCEED 3GM/24HRS TAKE 2 TABS (650MG) BY MOUTH EVERY 4 HOURS NEEDED FOR TEMP >100 NOT TO EXCEED 3GM/24HRS For DX-FEVER 2 12/12 Inactiv e 2023 67439 85998 0 By Mouth False MILK OF MAGNESIA ADMINISTER 30 ML BY MOUTH ONCE DAILY NEEDED FOR CONSTIPATION X3 DAYS WITH NO BM. For DX- CONSTIPATION 30ML 12/12 Inactiv e 2023 97469 90164 9 By Mouth False Enema Disposable 19 gram-7 gram/118 mL ADMINISTER ONE ENEMA RECTALLY ONCE DAILY NEEDED FOR CONSTIPATION ON DAY 6 OF NO BM For DX- CONSTIPATION 12/12 Inactiv e 2023 68056 30145 1 Rectal False TUMS EXTRA STR 750MG TAKE (1) TABLET BY MOUTH THREE TIMES DAILY NEEDED FOR INDIGESTION For DX- INDIGESTION 1 12/12 Inactiv e 2023 16593 77997 8 By Mouth False Vitamin D3 25 [...] CONSTIPATION 10 mg 12/12 Inactiv e 2023 89506 88948 1 Rectal False Melatonin 3 mg tablet [generic] 3 mg By Mouth As Needed For DX-INSOMMIA 3 mg 12/12 Inactiv e 2023 83379 96198 8 By Mouth False Hydrocortis one 1 % topical cream [generic] 1 % Topical As Needed For DX- PAIN 1 % 12/12 Inactiv e 2023 91632 70234 1 Topica l False HYDROCORTIS ONE/PARMOXI NE [...] 5-10 50 mg 12/20 Inactiv e 2023 33561 09428 0 Every 4 hours as needed By Mouth False Tylenol 325 mg tablet 325 mg By Mouth Every 4 hours as needed For DX- PAIN PRN FOR MILD PAIN, DO NOT EXCEED 3000MG APAP/24 HOURS 325 mg 12/20 Inactiv e 2023 30851 12094 0 Every 4 hours as needed By Mouth False Baclofen 20 mg tablet [generic] 20 mg By Mouth 4 times a day For MUSCLE SPASMS 20 mg 12/20 Inactiv e 2023 39695 33753 1 4 times a day By Mouth False Calcium citrate 250 mg tablet [generic] Once daily TAKE 4 TABLETS (1000MG) BY MOUTH For SUPPLEMENT 1000 MG 06/26 Inactiv e 2023 06360 11743 6 Once daily By Mouth False Dulcolax (bisacodyl) 10 mg rectal suppository 10 mg Rectal Once daily For CONSTIPATION *MAY HOLD FOR LOOSE STOOLS* 10 mg 2023 Active 2023 99494 55127 1 Once daily Rectal False Gabapentin 300 mg capsule [generic] 300 mg By Mouth 3 times a day For NEUROPATHY 300 mg 2023 Active 2023 45361 09980 4 3 times a day By Mouth False Potassium citrate ER 15 mEq (1,620 mg) tablet,exte nded release [generic] 15 mEq By Mouth 3 times a day For SUPPLEMENT/DI URETIC USE/HYPOCITRA URIA 15 mEq 06/11 Inactiv e 2023 56234 18240 1 3 times a day By Mouth False Potassium chloride ER 20 mEq tablet,exte nded release [generic] 20 mEq By Mouth 3 times a day *DO NOT CRUSH, CHEW OR BREAK* For SUPPLEMENT 20 mEq 12/18 Inactiv e 2023 55468 64677 1 3 times a day By Mouth False Tizanidine 4 mg tablet [generic] 4 mg By Mouth Once daily For MUSCLE SPASMS 4 mg 2023 Active 2023 44098 98968 0 Once daily By Mouth False Tylenol 325 mg tablet 2 tabs By Mouth Every 4 hours as needed For Fever >100 DO NOT EXCEED 3000 MG APAP/24 Hours 2 tabs 12/20 Inactiv e 2023 46857 24284 0 Every 4 hours as needed By Mouth False Dulcolax (bisacodyl) 10 mg rectal suppository Daily as needed For Constipation 1 sup 12/20 Inactiv e 2023 89416 56263 1 Daily as needed Rectal False Fleet Enema 19 gram-7 gram/118 mL 1 Rectal Daily as neededFor Constipation 1 12/20 Inactiv e 2023 88962 71643 6 Daily as needed Rectal False Milk of Magnesia 400 mg/5 mL oral suspension [Magnesium hydroxide] PRN 30ml By Mouth Daily as needed for constipation one time daily if no BM, on day 4 of no BM (PRN refer to instructions) For Constipation For Constipatioin 30ml 12/20 Inactiv e 2023 02978 85923 6 1 time By Mouth False Melatonin 3 mg tablet [generic] 3 mg By Mouth Once daily As Needed For INSOMNIA 3 mg 12/20 Inactiv e 2023 23836 75043 8 Once daily By Mouth False Hydrocortis one 1 % topical cream [generic] 1 % Rectal Four times daily as needed For hemorroid pain 1 % 12/20 Inactiv e 2023 66994 40214 1 Four times daily as needed Rectal False X-STGH ANTACID 750MG CHEW TAKE (1) TABLET BY MOUTH THREE TIMES DAILY NEEDED FOR INDIGESTION 12/20 Inactiv e 2023 88713 34265 4 Three times daily as needed Saline Mist 0.65 % nasal spray aerosol 0.65 % Nares Four times daily as needed For DRYNESS 0.65 % 12/20 Inactiv e 2023 19210 75361 8 Four times daily as needed Nares False Vicks Vaporub 4.7 %-1.2 %-2.6 % topical ointment Apply topically to chest Three times daily as needed For CONGESTION 4.7-1.2 -2.6 12/20 Inactiv e 2023 88807 16008 1 Three times daily as needed Topica l False VITAMIN D3 2000U CAP TAKE ONE (1) CAPSULE BY MOUTH DAILY* DO NOT CRUSH, CHEW OR BREAK* For Supplement 1 capsule 12/19 Inactiv e 2023 54839 72099 0 Once daily By Mouth False Potassium chloride ER 20 mEq tablet,exte nded release(par t/cryst) [generic] TAKE (1) TABLET BY MOUTH THREE TIMES DAILY (MORNING, AFTERNOON, EVENING)*DO NOT CRUSH, CHEW, OR BREAK* For SUPPLEMENT 20 MEQ 06/11 Inactiv e 2023 50974 13253 5 3 times a day By Mouth False Aspirin 81 mg tablet,camron yed release [generic] TAKE ONE (1) TABLET BY MOUTH ONCE DAILY*DO NOT CRUSH, CHEW OR BREAK* For CAD 81 MG 12/22 Inactiv e 2023 66071 63671 0 Once daily By Mouth False Furosemide 20 mg tablet [generic] TAKE 1 AND 1/2 TABLETS (30MG) BY MOUTH ONCE DAILY For CHF 30mg 2023 Active 2023 19273 77254 1 Once daily By Mouth False Polyethylen e glycol 3350 17 gram/dose oral powder [generic] MIX 17 GRAMS (1 CAPFUL) IN 60Z OF LIQUID AND DRINK BY MOUTH ONCE DAILY *HOLD FOR LOOSE STOOLS* For constipation 17 g 2023 Active 2023 55660 17884 3 Once daily By Mouth False Vitamin D3 50 mcg (2,000 unit) capsule Once daily TAKE ONE (1) CAPSULE BY MOUTH DAILY* DO NOT CRUSH, CHEW OR BREAK* For Supplement 1 capsule 02/07 Inactiv e 2023 93156 94262 2 Once daily By Mouth False Fleet Enema 19 gram-7 gram/118 mL 1 Rectal Daily as neededFor Constipation 1 2023 0000 Active 2023 86959 29513 6 Daily as needed Rectal False Tums E-X 300 mg (as calcium carbonate 750 mg) chewable tablet 1 tab By Mouth TAKE (1) TABLET BY MOUTH THREE TIMES DAILY NEEDED FOR INDIGESTION 1 tab 202300 /0000 Active 2023 24790 02794 1 Three times daily as needed By Mouth False Tylenol 325 mg tablet 2 tabs By Mouth Every 4 hours as needed For Fever >100 DO NOT EXCEED 3000 MG APAP/24 Hours 2 tabs 202300 /0000 Active 2023 72687 61909 0 Every 4 hours as needed By Mouth False Vicks Vaporub 4.7 %-1.2 %-2.6 % topical ointment Apply topically to chest Three times daily as needed For CONGESTION topical 202300 Active 2023 91316 34769 1 Three times daily as needed Topica l False Tylenol 325 mg tablet 2 tabs By Mouth Every 4 hours as needed For DX- PAIN PRN FOR MILD PAIN, DO NOT EXCEED 3000MG APAP/24 HOURS 2 tabs 202300 Active 2023 78637 88551 0 Every 4 hours as needed By Mouth False Tramadol 50 mg tablet [generic] 1 tab By Mouth Every 4 hours as needed For DX- PAIN 5-10 1 tab 03/10 Inactiv e 2023 91234 47440 0 Every 4 hours as needed By Mouth False Saline Mist 0.65 % nasal spray aerosol 2 sprays Nares Four times daily as needed For DRYNESS 2 sprays 202300 / Active 2023 23577 23182 8 Four times daily as needed Nares False Dulcolax (bisacodyl) 10 mg rectal suppository Daily as needed For Constipation 1 sup 202300 / Active 2023 58439 38489 1 Daily as needed Rectal False Hydrocortis one-pramoxi ne 1 %-1 % rectal cream [generic] 1 mague Rectal Four times daily as needed For hemorroid pain 1 mague 202300 /0000 Active 2023 70668 43485 4 Four times daily as needed Rectal False Melatonin 3 mg tablet [generic] 1 tab By Mouth At bedtime as needed For INSOMNIA 1 tab 12/24 Inactiv e 2023 80834 39754 8 At bedtime as needed By Mouth False Milk of Magnesia 400 mg/5 mL oral suspension 30ml By Mouth Daily as needed Daily as needed for constipation one time daily if no BM, on day 4 of no BM (PRN refer to instructions) For Constipation For Constipatioin 30ml 2023 Active 2023 87252 19619 2 Daily as needed By Mouth False Baclofen 20 mg tablet [generic] 20 mg By Mouth 4 times a day For MUSCLE SPASMS 20 mg 2023 Active 2023 41868 75216 1 4 times a day By Mouth False Melatonin 3 mg tablet [generic] 1 tab By Mouth At bedtime as needed For INSOMNIA 1 tab 2023 Active 2023 88211 40785 8 At bedtime as needed By Mouth False Bactrim DS 800 mg-160 mg tablet 1 tab By Mouth Twice daily For URINARY TRACT INFECTION, SITE NOT SPECIFIED 1 tab 01/06 Inactiv e 2023 36573 76485 1 Twice daily By Mouth N39.0 False Cefdinir 300 mg capsule [generic] 300 mg By Mouth Twice daily For UTI 300 mg 01/07 Inactiv e 2023 67965 97754 0 Twice daily By Mouth False Cefdinir 300 mg capsule [generic] 300 mg By Mouth Twice daily For UTI 300 mg 01/17 Inactiv e 2023 65656 80361 0 Twice daily By Mouth False Zyrtec 10 mg tablet 10 mg By Mouth Once daily For sinus congestion 10 mg 01/22 Inactiv e 2023 56417 73431 0 Once daily By Mouth False Tobramycin 0.3 %-dexametha sone 0.1 % eye drops,suspe nsion [generic] 0.3-0.1 % Left Eye 4 times a day For eye infection 0.3-0.1 % 02/05 Inactiv e 2023 29517 97809 5 4 times a day Left Eye False Fluconazole 150 mg tablet [generic] 150 mg By Mouth 1 time For yeast infection 150 mg 02/15 Inactiv e 2023 83265 58813 2 1 time By Mouth False Tramadol 50 mg tablet [generic] 1 tab By Mouth Every 4 hours as needed For DX- PAIN 5-10 1 tab 2023 00/00 /0000 Active 2023 48570 62739 0 Every 4 hours as needed By Mouth False Tobramycin 0.3 %-dexametha sone 0.1 % eye drops,suspe nsion [generic] 1 drop Left Eye 4 times a day For Inflammation of left eye 1 drop 05/08 Inactiv e 2023 74142 44643 5 4 times a day Left Eye False Voltaren Arthritis Pain 1 % topical gel 2 gm Topical Twice daily to rigth shoulder for 2 weeks For pain 2 gm 05/08 Inactiv e 2023 28903 95356 1 Twice daily Topica l False Chlorthalid one 25 mg tablet [generic] 12.5mg By Mouth Once daily For HTN 12.5mg 05/06 Inactiv e 2023 61764 66930 0 Once daily By Mouth False Chlorthalid one 25 mg tablet [generic] 12.5mg By Mouth Once daily For HTN 12.5mg 05/07 Inactiv e 2023 91273 09154 0 Once daily By Mouth False Chlorthalid one 25 mg tablet [generic] 05/07 Inactiv e 2023 75414 31068 0 Chlorthalid one 25 mg tablet [generic] 12.5mg By Mouth Once daily For HTN 12.5mg 06/26 Inactiv e 2023 51619 45592 0 Once daily By Mouth False Norvasc 5 mg tablet 5mg By Mouth Once daily, hold medication if systolic is less than 90 For HYPERTENSIVE HEART DISEASE WITHOUT HEART FAILURE 5mg 06/03 Inactiv e 2023 85455 59264 1 Once daily By Mouth I11.9 False Norvasc 5 mg tablet 5mg By Mouth Once daily, hold medication if systolic is less than 90 For HYPERTENSIVE HEART DISEASE WITHOUT HEART FAILURE 5mg 06/03 Inactiv e 2023 80456 25122 1 Once daily By Mouth I11.9 False Norvasc 5 mg tablet 5mg By Mouth Once daily, hold medication if systolic is less than 90 For HYPERTENSIVE HEART DISEASE WITHOUT HEART FAILURE 5mg 06/26 Inactiv e 2023 61054 12632 1 Once daily By Mouth I11.9 False [...] 10 mg 2023 00/00 /0000 Active 2023 77621 13751 1 Once daily By Mouth False DISCONTINUE [...] CAD 81 mg 06/14 Inactiv e 2023 28714 73797 9 Once daily By Mouth False Aspirin 81 mg tablet,camron yed release [generic] 06/14 Inactiv e 2023 84933 08892 9 Aspirin 81 mg tablet,camron yed release [generic] 81 mg By Mouth Once daily Do not crush, chew, or break For CAD 81 mg 06/154 Inactiv e 2023 14612 26718 9 Once daily By Mouth False Cefpodoxime 200 mg tablet [generic] 200mg By Mouth Twice daily For UTI 200mg 07/04 Inactiv e 2023 36411 98276 0 Twice daily By Mouth False Calcium citrate 250 mg tablet [generic] 06/26 Inactiv e 2023 40144 51312 6 Calcium citrate 250 mg tablet [generic] Once daily TAKE 4 TABLETS (1000MG) BY MOUTH For SUPPLEMENT 500 MG 2023 Active 2023 07978 84993 6 Once daily By Mouth False Norvasc 5 mg tablet 7.5 mg By Mouth Once daily Hold medication if SBP <90 For HYPERTENSIVE HEART DISEASE WITHOUT HEART FAILURE 7.5 mg 06/30 Inactiv e 2023 36371 14881 1 Once daily By Mouth I11.9 False Norvasc 5 mg tablet 7.5 mg By Mouth Once daily Hold medication if SBP <90 For HYPERTENSIVE HEART DISEASE WITHOUT HEART FAILURE 7.5 mg 07/06 Inactiv e 2023 00057 51559 1 Once daily By Mouth I11.9 False Simethicone 125 mg capsule [generic] 2 capule By Mouth Twice daily as needed For bloating/gas pain 2 capule 2023 Active 2023 91561 51288 0 Twice daily as needed By Mouth False Cepacol Sore Throat (benzocaine -menthol) 15 mg-2.6 mg lozenges 2 lozenges By Mouth Every 6 hours as needed For sore throat 2 lozenge s 2023 Active 2023 09988 45968 6 Every 6 hours as needed By Mouth False Cefepime 1 gram solution for injection [generic] 1g Intramuscular Every 12 hours 1g intramuscular ly ever 12 hours For UTI 1g 07/06 Inactiv e 2023 77507 01422 4 Every 12 hours Intram uscula r False Cefepime 1 gram solution for injection [generic] 07/06 Inactiv e 2023 92616 15741 4 Cefepime 1 gram solution for injection [generic] 1g Intramuscular Every 12 hours 1g intramuscular ly ever 12 hours For UTI Reconstitute with 2.4 ML of NSS. 1g 07/08 Inactiv e 2023 21200 93394 4 Every 12 hours Intram uscula r False Norvasc 5 mg tablet 07/06 Inactiv e 2023 44974 56032 1 I11.9 Norvasc 5 mg tablet 7.5 mg By Mouth Once daily Hold medication if SBP <90 For HYPERTENSIVE HEART DISEASE WITHOUT HEART FAILURE 7.5 mg 2023 00 /0000 Active 2023 33139 99476 1 Once daily By Mouth I11.9 False Cefepime 1 gram solution for injection [generic] 07/08 Inactiv e 2023 20762 32464 4 Cefepime 1 gram solution for injection [generic] 1g Intramuscular Every 12 hours 1g intramuscular ly ever 12 hours For UTI Reconstitute with 2.4 ML of NSS. 1g 07/08 Inactiv e 2023 89725 61199 4 Every 12 hours Intram uscula r False Cefepime 1 gram solution for injection [generic] 07/08 Inactiv e 2023 24964 54690 4 Cefepime 1 gram solution for injection [generic] 1g Intramuscular Every 12 hours 1g intramuscular ly ever 12 hours For UTI Reconstitute with 2.4 ML of NSS. 1g 07/11 Inactiv e 2023 99508 65651 4 Every 12 hours Intram uscula r False Fleet Enema 19 gram-7 gram/118 mL 1 Rectal 1 time For constipation 1 07/16 Inactiv e 2024 02175 63603 6 1 time Rectal False Nystatin 100,000 unit/gram topical cream [generic] 100,000 unit Topical As Needed For DX- EXCORIATION 100,000 unit 12/12 Inactiv e 2023 55937 15340 5 Topica l False Vicks Vaporub 4.7 %-1.2 %-2.6 % topical ointment 4.7-1.2-2.6 Topical 3 times a day As Needed For DX- CONGESTION 4.7-1.2 -2.6 12/12 Inactiv e 2023 62481 22283 1 3 times a day Topica l False Ketoconazol e 2 % shampoo [generic] APPLY SHAMPOO TOPICALLY TO SCALP DURING HAIR WASHINGDX: ELVIA DERM OF SCALP For DX- ELVIA DERM OF SCALP 12/12 Inactiv e 2023 48815 98313 4 Topica l False THERA SILICONE SKIN GUARD Topical Twice daily 1 APPLICATION TOPICALLY IN THE MORNING AND AT BEDTIME TO SCROTUM For DX- PREVENTION 2023 0000 Active 2023 Twice daily Topica l False Selenium sulfide 2.5 % lotion [generic] 2.5 % Topical EVERY MONDAY, MONDAY AND MONDAY AFTER SHOWER For DANDRUFF 2.5 % 2023 00/00 /0000 Active 2023 12923 47639 4 3 times a week Topica l False Nystatin (bulk) 100 million unit powder [generic] 100 million Topical Twice daily as needed For EXOCORATION 100 million 12/20 Inactiv e 2023 43039 86871 1 Twice daily as needed Topica l False Ketoconazol e 2 % shampoo [generic] Once daily APPLY SHAMPOO TOPICALLY TO SCALP DURING HAIR WASHING ON SHOWER DAYS- , , MON For ELVIA DERM OF SCAP 2 % 2023 0000 /0000 Active 2023 16138 43479 4 Once daily Topica l False Nystatin 100,000 unit/gram topical cream [generic] 1 mague Topical Twice daily as needed For EXOCORATION 1 mague 06/05 Inactiv e 2023 51327 73453 5 Twice daily as needed Topica l False Nystatin 100,000 unit/gram topical powder [generic] 100,000 unit Topical Twice daily to scrotum with AM and PM care For Scrotal excoriation 100,000 unit 06/05 Inactiv e 2023 58826 03128 5 Twice daily Topica l False Problems [...] weight Temperature SpO2 Blood Sugar Pulse Respirations 94155 209 64250 2 78.00 mm[Hg] - Sitting 130.00 mm[Hg] - Sitting 23218 210 65960 6 80.00 mm[Hg] - Sitting 132.00 mm[Hg] - Sitting 14532 211 34363 5 78.00 mm[Hg] - Sitting 125.00 mm[Hg] - Sitting 29086 216 04515 1 254[place]10 [place] [address] 216 87302 2 79.00 mm[Hg] - Sitting 157.00 mm[Hg] - Sitting 73 NI 254.10 NI 36.30 Tympanic 95.00 % 72.00/ min 16.00/min 98926 216 02523 4 98.80 Tympanic 06866 216 12793 2 78.00 mm[Hg] - Sitting 164.00 mm[Hg] - Sitting 97436 217 28672 3 98.20 Tympanic 99446 217 62362 5 73.00 mm[Hg] - Sitting 159.00 mm[Hg] - Sitting 92700 217 34054 9 98.40 Forehead Scan 45871 218 43887 3 97.90 Tympanic 51487 218 30570 5 77.00 mm[Hg] - Sitting 137.00 mm[Hg] - Sitting 18626 219 98880 0 97.70 Tympanic 96050 219 20334 6 97.60 Tympanic 48337 219 97273 4 76.00 mm[Hg] - Sitting 139.00 mm[Hg] - Sitting 89548 219 78579 4 97.80 Forehead Scan 34448 220 89543 9 97.90 Tympanic 42579 220 63353 9 76.00 mm[Hg] - Sitting 138.00 mm[Hg] - Sitting 31212 220 02240 6 98.10 Tympanic 32858 221 43096 5 67.00 mm[Hg] - Sitting 142.00 mm[Hg] - Sitting 01142 221 77994 8 98.20 Tympanic 81561 221 55818 0 98.30 Tympanic 22295 222 65638 7 98.20 Tympanic 67091 222 15577 8 97.90 Tympanic 79254 223 23437 3 98.20 Tympanic 59593 223 66094 3 98.00 Tympanic 60498 224 77540 0 59.00 mm[Hg] - Sitting 111.00 mm[Hg] - Sitting 98.40 Forehead Scan 95.00 % 56.00/ min 18.00/min 48514 224 87483 9 98.20 Forehead Scan 71206 224 97741 3 97.90 Tympanic 46256 225 83750 4 98.20 Tympanic 75698 225 39950 8 97.50 Forehead Scan 85298 228 58904 0 55.00 mm[Hg] - Sitting 118.00 mm[Hg] - Sitting 98.40 Tympanic 69.00/ min 70719 229 59106 8 78.00 mm[Hg] - Sitting 152.00 mm[Hg] - Sitting 66392 230 11886 0 62.00 mm[Hg] - Sitting 122.00 mm[Hg] - Sitting 44220 231 45768 7 72.00 mm[Hg] - Lying Down 140.00 mm[Hg] - Lying Down 06841 101 66551 3 97.70 Forehead Scan 32164 101 09561 1 254.10 NI 69.00/ min 20098 101 75617 9 72.00 mm[Hg] - Sitting 142.00 mm[Hg] - Sitting 97.70 Tympanic 18.00/min 90456 101 70016 3 72.00 mm[Hg] - Lying Down 142.00 mm[Hg] - Lying Down 67814 102 47800 8 68.00 mm[Hg] - Lying Down 152.00 mm[Hg] - Lying Down 32372 103 84839 5 74.00 mm[Hg] - Sitting 158.00 mm[Hg] - Sitting 92046 104 27839 9 78.00 mm[Hg] - Sitting 144.00 mm[Hg] - Sitting 72129 105 25904 5 68.00 mm[Hg] - Sitting 138.00 mm[Hg] - Sitting 58107 106 24851 1 70.00 mm[Hg] - Sitting 138.00 mm[Hg] - Sitting 82549 107 56145 1 67.00 mm[Hg] - Sitting 142.00 mm[Hg] - Sitting 96276 108 03440 0 74.00 mm[Hg] - Sitting 143.00 mm[Hg] [...]
--- OUTSIDE RECORDS SUMMARY | 2024-07-26 11:20 | External Medical Summary | Continuity Of Care Document ---
Author Name Unknown Address [address] [place] [address] Organization [facility] () Care Team Providers Care Typist Name Role Phone DO Pritchett Amy Primary Care Provider [phone] Allergies Allergy Reaction Start Date End Date Status AMINOGLYCOSIDES Active CIPRO Active GENTAMICIN Active NSAIDS (NON-STEROIDAL ANTI-INFLAMMATORY DRUG) 0 Active IBUPROFEN Active QUINOLONES Active VALIUM Active Medications Medication Instructions Dosage Start Date End Date Status Order Date Drug Code Frequency Route of Admin Diagnosis Code Substitutions Allowed Spikevax [id number](1 2y up)(PF) 50 mcg/0.5 mL intramuscul ar suspension [COVID [id number](12 up)(andu)(P F)] 0.5mL Intramuscular 1 time Monitory 15 Minutes post injection for adverse effects; record site/temp For COVID 19 PREVENTION 0.5mL 01/02 Inactiv e 2023 96504 04132 4 1 time Intram uscula r False [facility] - Nurse initials indicate verificatio n that [id number] vaccine was administere d by [facility]on 1 Intramuscular 1 time ( Indicate vaccine type) For vaccine 1 05/03 Inactiv e 2023 1 time Intram uscula r False Lisinopril 40 mg tablet [generic] TAKE ONE (1) TABLET BY MOUTH IN THE MORNING. For DX- HTN 1 2023 Active 2023 62692 56987 1 Once daily By Mouth False Tizanidine 2 mg tablet [generic] TAKE ONE (1) TABLET BY MOUTH ONCE DAILY For MUSCLE SPASM 1 2023 Active 2023 17909 35092 0 Once daily By Mouth M62.838 False Tamsulosin 0.4 mg capsule [generic] TAKE (1) CAPSULE BY MOUTH AT BEDTIME For SPASMS 1 2023 Active 2023 76779 31566 0 Once daily By Mouth False Aspirin 81 mg tablet Once daily 1 TABLET BY MOUTH IN THE MORNING For DX- CAD DO NOT CRUSH, CHEW OR BREAK 81 mg 06/12 Inactiv e 2023 Once daily By Mouth False Baclofen 20 mg tablet [generic] 20 mg By Mouth 4 times a day For DX- MUSCLE SPASMS 20 mg 12/12 Inactiv e 2023 84354 06029 1 4 times a day By Mouth False Calcium citrate 250 mg tablet Once daily 4 TABLET BY MOUTH For DX- SUPPLEMENT 250 mg calci 12/12 Inactiv e 2023 Once daily By Mouth False Co Q-10 100 mg capsule 100 mg By Mouth Once daily For DX- SUPPLEMENT 100 mg 06/20 Inactiv e 2023 09034 72600 5 Once daily By Mouth False Furosemide 20 mg tablet [generic] 20 mg By Mouth Once daily For DX-CHF 20 mg 12/12 Inactiv e 2023 83687 17280 0 Once daily By Mouth False Gabapentin 300 mg capsule [generic] 300 mg By Mouth 3 times a day For DX- NEUROPATHY 300 mg 12/12 Inactiv e 2023 79391 09667 4 3 times a day By Mouth False Loratadine 10 mg tablet [generic] 10 mg By Mouth Once daily For DX- ALLERGIES 10 mg 2023 Active 2023 94979 47805 1 Once daily By Mouth False Miralax 17 gram/dose oral powder 17 gram/dose By Mouth IN THE MORNING Mix 1 TABLESPOON IN 8 OZ OF FLUID HOLD FOR LOOSE STOOLS For DX- CONSTIPATION 17 gram/do se 12/12 Inactiv e 2023 18551 48091 0 Once daily By Mouth False Paroxetine 30 mg tablet [generic] 30 mg By Mouth Once daily For DX- DEPRESSION 30 mg 2023 00/00 /0000 Active 2023 36847 53969 3 Once daily By Mouth False Potassium citrate ER 15 mEq (1,620 mg) tablet,exte nded release [generic] 15 mEq By Mouth 3 times a day For DX- SUPPLEMENT/DI URETIC USE/ HYPOCITRAUIRA DO NOT CRUSH 15 mEq 12/12 Inactiv e 2023 79406 06439 1 3 times a day By Mouth [...] For DX- DANDRUFF 12/12 Inactiv e 2023 91371 46709 4 3 times a week Topica l False Acetaminoph en 325 mg tablet [generic] TAKE 2 TABS (650MG) BY MOUTH EVERY 4 HOURS NEEDED FOR TEMP >100 NOT TO EXCEED 3GM/24HRS TAKE 2 TABS (650MG) BY MOUTH EVERY 4 HOURS NEEDED FOR TEMP >100 NOT TO EXCEED 3GM/24HRS For DX-FEVER 2 12/12 Inactiv e 2023 01578 49087 0 By Mouth False MILK OF MAGNESIA ADMINISTER 30 ML BY MOUTH ONCE DAILY NEEDED FOR CONSTIPATION X3 DAYS WITH NO BM. For DX- CONSTIPATION 30ML 12/12 Inactiv e 2023 35901 17959 9 By Mouth False Enema Disposable 19 gram-7 gram/118 mL ADMINISTER ONE ENEMA RECTALLY ONCE DAILY NEEDED FOR CONSTIPATION ON DAY 6 OF NO BM For DX- CONSTIPATION 12/12 Inactiv e 2023 83847 48107 1 Rectal False TUMS EXTRA STR 750MG TAKE (1) TABLET BY MOUTH THREE TIMES DAILY NEEDED FOR INDIGESTION For DX- INDIGESTION 1 12/12 Inactiv e 2023 43245 67967 8 By Mouth False Vitamin D3 25 [...] CONSTIPATION 10 mg 12/12 Inactiv e 2023 73956 80808 1 Rectal False Melatonin 3 mg tablet [generic] 3 mg By Mouth As Needed For DX-INSOMMIA 3 mg 12/12 Inactiv e 2023 75587 82097 8 By Mouth False Hydrocortis one 1 % topical cream [generic] 1 % Topical As Needed For DX- PAIN 1 % 12/12 Inactiv e 2023 69994 07592 1 Topica l False HYDROCORTIS ONE/PARMOXI NE [...] 5-10 50 mg 12/20 Inactiv e 2023 89079 49775 0 Every 4 hours as needed By Mouth False Tylenol 325 mg tablet 325 mg By Mouth Every 4 hours as needed For DX- PAIN PRN FOR MILD PAIN, DO NOT EXCEED 3000MG APAP/24 HOURS 325 mg 12/20 Inactiv e 2023 45597 91711 0 Every 4 hours as needed By Mouth False Baclofen 20 mg tablet [generic] 20 mg By Mouth 4 times a day For MUSCLE SPASMS 20 mg 12/20 Inactiv e 2023 35221 18966 1 4 times a day By Mouth False Calcium citrate 250 mg tablet [generic] Once daily TAKE 4 TABLETS (1000MG) BY MOUTH For SUPPLEMENT 1000 MG 06/26 Inactiv e 2023 40236 66561 6 Once daily By Mouth False Dulcolax (bisacodyl) 10 mg rectal suppository 10 mg Rectal Once daily For CONSTIPATION *MAY HOLD FOR LOOSE STOOLS* 10 mg 2023 Active 2023 74525 81540 1 Once daily Rectal False Gabapentin 300 mg capsule [generic] 300 mg By Mouth 3 times a day For NEUROPATHY 300 mg 2023 Active 2023 62531 54350 4 3 times a day By Mouth False Potassium citrate ER 15 mEq (1,620 mg) tablet,exte nded release [generic] 15 mEq By Mouth 3 times a day For SUPPLEMENT/DI URETIC USE/HYPOCITRA URIA 15 mEq 06/11 Inactiv e 2023 65260 00606 1 3 times a day By Mouth False Potassium chloride ER 20 mEq tablet,exte nded release [generic] 20 mEq By Mouth 3 times a day *DO NOT CRUSH, CHEW OR BREAK* For SUPPLEMENT 20 mEq 12/18 Inactiv e 2023 63645 77113 1 3 times a day By Mouth False Tizanidine 4 mg tablet [generic] 4 mg By Mouth Once daily For MUSCLE SPASMS 4 mg 2023 Active 2023 79214 00793 0 Once daily By Mouth False Tylenol 325 mg tablet 2 tabs By Mouth Every 4 hours as needed For Fever >100 DO NOT EXCEED 3000 MG APAP/24 Hours 2 tabs 12/20 Inactiv e 2023 04715 40180 0 Every 4 hours as needed By Mouth False Dulcolax (bisacodyl) 10 mg rectal suppository Daily as needed For Constipation 1 sup 12/20 Inactiv e 2023 11825 02590 1 Daily as needed Rectal False Fleet Enema 19 gram-7 gram/118 mL 1 Rectal Daily as neededFor Constipation 1 12/20 Inactiv e 2023 48956 03873 6 Daily as needed Rectal False Milk of Magnesia 400 mg/5 mL oral suspension [Magnesium hydroxide] PRN 30ml By Mouth Daily as needed for constipation one time daily if no BM, on day 4 of no BM (PRN refer to instructions) For Constipation For Constipatioin 30ml 12/20 Inactiv e 2023 53933 49104 6 1 time By Mouth False Melatonin 3 mg tablet [generic] 3 mg By Mouth Once daily As Needed For INSOMNIA 3 mg 12/20 Inactiv e 2023 71797 24567 8 Once daily By Mouth False Hydrocortis one 1 % topical cream [generic] 1 % Rectal Four times daily as needed For hemorroid pain 1 % 12/20 Inactiv e 2023 33977 69706 1 Four times daily as needed Rectal False X-STGH ANTACID 750MG CHEW TAKE (1) TABLET BY MOUTH THREE TIMES DAILY NEEDED FOR INDIGESTION 12/20 Inactiv e 2023 76203 15128 4 Three times daily as needed Saline Mist 0.65 % nasal spray aerosol 0.65 % Nares Four times daily as needed For DRYNESS 0.65 % 12/20 Inactiv e 2023 39385 81748 8 Four times daily as needed Nares False Vicks Vaporub 4.7 %-1.2 %-2.6 % topical ointment Apply topically to chest Three times daily as needed For CONGESTION 4.7-1.2 -2.6 12/20 Inactiv e 2023 98693 53821 1 Three times daily as needed Topica l False VITAMIN D3 2000U CAP TAKE ONE (1) CAPSULE BY MOUTH DAILY* DO NOT CRUSH, CHEW OR BREAK* For Supplement 1 capsule 12/19 Inactiv e 2023 97172 34698 0 Once daily By Mouth False Potassium chloride ER 20 mEq tablet,exte nded release(par t/cryst) [generic] TAKE (1) TABLET BY MOUTH THREE TIMES DAILY (MORNING, AFTERNOON, EVENING)*DO NOT CRUSH, CHEW, OR BREAK* For SUPPLEMENT 20 MEQ 06/11 Inactiv e 2023 94803 83851 5 3 times a day By Mouth False Aspirin 81 mg tablet,camron yed release [generic] TAKE ONE (1) TABLET BY MOUTH ONCE DAILY*DO NOT CRUSH, CHEW OR BREAK* For CAD 81 MG 12/22 Inactiv e 2023 57690 19659 0 Once daily By Mouth False Furosemide 20 mg tablet [generic] TAKE 1 AND 1/2 TABLETS (30MG) BY MOUTH ONCE DAILY For CHF 30mg 2023 Active 2023 14195 59851 1 Once daily By Mouth False Polyethylen e glycol 3350 17 gram/dose oral powder [generic] MIX 17 GRAMS (1 CAPFUL) IN 60Z OF LIQUID AND DRINK BY MOUTH ONCE DAILY *HOLD FOR LOOSE STOOLS* For constipation 17 g 2023 Active 2023 94488 29837 3 Once daily By Mouth False Vitamin D3 50 mcg (2,000 unit) capsule Once daily TAKE ONE (1) CAPSULE BY MOUTH DAILY* DO NOT CRUSH, CHEW OR BREAK* For Supplement 1 capsule 02/07 Inactiv e 2023 45894 24767 2 Once daily By Mouth False Fleet Enema 19 gram-7 gram/118 mL 1 Rectal Daily as neededFor Constipation 1 2023 0000 Active 2023 89828 29369 6 Daily as needed Rectal False Tums E-X 300 mg (as calcium carbonate 750 mg) chewable tablet 1 tab By Mouth TAKE (1) TABLET BY MOUTH THREE TIMES DAILY NEEDED FOR INDIGESTION 1 tab 202300 /0000 Active 2023 67370 58313 1 Three times daily as needed By Mouth False Tylenol 325 mg tablet 2 tabs By Mouth Every 4 hours as needed For Fever >100 DO NOT EXCEED 3000 MG APAP/24 Hours 2 tabs 202300 /0000 Active 2023 61818 44713 0 Every 4 hours as needed By Mouth False Vicks Vaporub 4.7 %-1.2 %-2.6 % topical ointment Apply topically to chest Three times daily as needed For CONGESTION topical 202300 Active 2023 78422 73374 1 Three times daily as needed Topica l False Tylenol 325 mg tablet 2 tabs By Mouth Every 4 hours as needed For DX- PAIN PRN FOR MILD PAIN, DO NOT EXCEED 3000MG APAP/24 HOURS 2 tabs 202300 Active 2023 10186 96107 0 Every 4 hours as needed By Mouth False Tramadol 50 mg tablet [generic] 1 tab By Mouth Every 4 hours as needed For DX- PAIN 5-10 1 tab 03/10 Inactiv e 2023 90895 24441 0 Every 4 hours as needed By Mouth False Saline Mist 0.65 % nasal spray aerosol 2 sprays Nares Four times daily as needed For DRYNESS 2 sprays 202300 / Active 2023 99129 87349 8 Four times daily as needed Nares False Dulcolax (bisacodyl) 10 mg rectal suppository Daily as needed For Constipation 1 sup 202300 / Active 2023 70258 59820 1 Daily as needed Rectal False Hydrocortis one-pramoxi ne 1 %-1 % rectal cream [generic] 1 mague Rectal Four times daily as needed For hemorroid pain 1 mague 202300 /0000 Active 2023 00439 86725 4 Four times daily as needed Rectal False Melatonin 3 mg tablet [generic] 1 tab By Mouth At bedtime as needed For INSOMNIA 1 tab 12/24 Inactiv e 2023 93277 38917 8 At bedtime as needed By Mouth False Milk of Magnesia 400 mg/5 mL oral suspension 30ml By Mouth Daily as needed Daily as needed for constipation one time daily if no BM, on day 4 of no BM (PRN refer to instructions) For Constipation For Constipatioin 30ml 2023 Active 2023 92380 23794 2 Daily as needed By Mouth False Baclofen 20 mg tablet [generic] 20 mg By Mouth 4 times a day For MUSCLE SPASMS 20 mg 2023 Active 2023 01752 02846 1 4 times a day By Mouth False Melatonin 3 mg tablet [generic] 1 tab By Mouth At bedtime as needed For INSOMNIA 1 tab 2023 Active 2023 48463 79690 8 At bedtime as needed By Mouth False Bactrim DS 800 mg-160 mg tablet 1 tab By Mouth Twice daily For URINARY TRACT INFECTION, SITE NOT SPECIFIED 1 tab 01/06 Inactiv e 2023 55591 26622 1 Twice daily By Mouth N39.0 False Cefdinir 300 mg capsule [generic] 300 mg By Mouth Twice daily For UTI 300 mg 01/07 Inactiv e 2023 16420 30724 0 Twice daily By Mouth False Cefdinir 300 mg capsule [generic] 300 mg By Mouth Twice daily For UTI 300 mg 01/17 Inactiv e 2023 34094 90018 0 Twice daily By Mouth False Zyrtec 10 mg tablet 10 mg By Mouth Once daily For sinus congestion 10 mg 01/22 Inactiv e 2023 41386 95609 0 Once daily By Mouth False Tobramycin 0.3 %-dexametha sone 0.1 % eye drops,suspe nsion [generic] 0.3-0.1 % Left Eye 4 times a day For eye infection 0.3-0.1 % 02/05 Inactiv e 2023 36012 70212 5 4 times a day Left Eye False Fluconazole 150 mg tablet [generic] 150 mg By Mouth 1 time For yeast infection 150 mg 02/15 Inactiv e 2023 85616 98047 2 1 time By Mouth False Tramadol 50 mg tablet [generic] 1 tab By Mouth Every 4 hours as needed For DX- PAIN 5-10 1 tab 2023 00/00 /0000 Active 2023 76185 34435 0 Every 4 hours as needed By Mouth False Tobramycin 0.3 %-dexametha sone 0.1 % eye drops,suspe nsion [generic] 1 drop Left Eye 4 times a day For Inflammation of left eye 1 drop 05/08 Inactiv e 2023 01659 14751 5 4 times a day Left Eye False Voltaren Arthritis Pain 1 % topical gel 2 gm Topical Twice daily to rigth shoulder for 2 weeks For pain 2 gm 05/08 Inactiv e 2023 22304 95280 1 Twice daily Topica l False Chlorthalid one 25 mg tablet [generic] 12.5mg By Mouth Once daily For HTN 12.5mg 05/06 Inactiv e 2023 47522 99512 0 Once daily By Mouth False Chlorthalid one 25 mg tablet [generic] 12.5mg By Mouth Once daily For HTN 12.5mg 05/07 Inactiv e 2023 61952 68644 0 Once daily By Mouth False Chlorthalid one 25 mg tablet [generic] 05/07 Inactiv e 2023 97880 24416 0 Chlorthalid one 25 mg tablet [generic] 12.5mg By Mouth Once daily For HTN 12.5mg 06/26 Inactiv e 2023 47338 72966 0 Once daily By Mouth False Norvasc 5 mg tablet 5mg By Mouth Once daily, hold medication if systolic is less than 90 For HYPERTENSIVE HEART DISEASE WITHOUT HEART FAILURE 5mg 06/03 Inactiv e 2023 77765 77047 1 Once daily By Mouth I11.9 False Norvasc 5 mg tablet 5mg By Mouth Once daily, hold medication if systolic is less than 90 For HYPERTENSIVE HEART DISEASE WITHOUT HEART FAILURE 5mg 06/03 Inactiv e 2023 37369 95883 1 Once daily By Mouth I11.9 False Norvasc 5 mg tablet 5mg By Mouth Once daily, hold medication if systolic is less than 90 For HYPERTENSIVE HEART DISEASE WITHOUT HEART FAILURE 5mg 06/26 Inactiv e 2023 85277 99242 1 Once daily By Mouth I11.9 False [...] 10 mg 2023 00/00 /0000 Active 2023 25225 96902 1 Once daily By Mouth False DISCONTINUE [...] CAD 81 mg 06/14 Inactiv e 2023 64741 00928 9 Once daily By Mouth False Aspirin 81 mg tablet,camron yed release [generic] 06/14 Inactiv e 2023 68690 33558 9 Aspirin 81 mg tablet,camron yed release [generic] 81 mg By Mouth Once daily Do not crush, chew, or break For CAD 81 mg 06/154 Inactiv e 2023 27245 28549 9 Once daily By Mouth False Cefpodoxime 200 mg tablet [generic] 200mg By Mouth Twice daily For UTI 200mg 07/04 Inactiv e 2023 32810 82969 0 Twice daily By Mouth False Calcium citrate 250 mg tablet [generic] 06/26 Inactiv e 2023 34591 78533 6 Calcium citrate 250 mg tablet [generic] Once daily TAKE 4 TABLETS (1000MG) BY MOUTH For SUPPLEMENT 500 MG 2023 Active 2023 13490 83224 6 Once daily By Mouth False Norvasc 5 mg tablet 7.5 mg By Mouth Once daily Hold medication if SBP <90 For HYPERTENSIVE HEART DISEASE WITHOUT HEART FAILURE 7.5 mg 06/30 Inactiv e 2023 97312 97943 1 Once daily By Mouth I11.9 False Norvasc 5 mg tablet 7.5 mg By Mouth Once daily Hold medication if SBP <90 For HYPERTENSIVE HEART DISEASE WITHOUT HEART FAILURE 7.5 mg 07/06 Inactiv e 2023 38088 30248 1 Once daily By Mouth I11.9 False Simethicone 125 mg capsule [generic] 2 capule By Mouth Twice daily as needed For bloating/gas pain 2 capule 2023 Active 2023 94755 77336 0 Twice daily as needed By Mouth False Cepacol Sore Throat (benzocaine -menthol) 15 mg-2.6 mg lozenges 2 lozenges By Mouth Every 6 hours as needed For sore throat 2 lozenge s 2023 Active 2023 17738 43732 6 Every 6 hours as needed By Mouth False Cefepime 1 gram solution for injection [generic] 1g Intramuscular Every 12 hours 1g intramuscular ly ever 12 hours For UTI 1g 07/06 Inactiv e 2023 34509 87192 4 Every 12 hours Intram uscula r False Cefepime 1 gram solution for injection [generic] 07/06 Inactiv e 2023 81150 59615 4 Cefepime 1 gram solution for injection [generic] 1g Intramuscular Every 12 hours 1g intramuscular ly ever 12 hours For UTI Reconstitute with 2.4 ML of NSS. 1g 07/08 Inactiv e 2023 39143 85099 4 Every 12 hours Intram uscula r False Norvasc 5 mg tablet 07/06 Inactiv e 2023 46727 13143 1 I11.9 Norvasc 5 mg tablet 7.5 mg By Mouth Once daily Hold medication if SBP <90 For HYPERTENSIVE HEART DISEASE WITHOUT HEART FAILURE 7.5 mg 2023 00 /0000 Active 2023 05512 81960 1 Once daily By Mouth I11.9 False Cefepime 1 gram solution for injection [generic] 07/08 Inactiv e 2023 40100 22393 4 Cefepime 1 gram solution for injection [generic] 1g Intramuscular Every 12 hours 1g intramuscular ly ever 12 hours For UTI Reconstitute with 2.4 ML of NSS. 1g 07/08 Inactiv e 2023 26483 33648 4 Every 12 hours Intram uscula r False Cefepime 1 gram solution for injection [generic] 07/08 Inactiv e 2023 64502 98703 4 Cefepime 1 gram solution for injection [generic] 1g Intramuscular Every 12 hours 1g intramuscular ly ever 12 hours For UTI Reconstitute with 2.4 ML of NSS. 1g 07/11 Inactiv e 2023 96057 77717 4 Every 12 hours Intram uscula r False Fleet Enema 19 gram-7 gram/118 mL 1 Rectal 1 time For constipation 1 07/16 Inactiv e 2024 79676 83908 6 1 time Rectal False Nystatin 100,000 unit/gram topical cream [generic] 100,000 unit Topical As Needed For DX- EXCORIATION 100,000 unit 12/12 Inactiv e 2023 91540 04477 5 Topica l False Vicks Vaporub 4.7 %-1.2 %-2.6 % topical ointment 4.7-1.2-2.6 Topical 3 times a day As Needed For DX- CONGESTION 4.7-1.2 -2.6 12/12 Inactiv e 2023 28903 64522 1 3 times a day Topica l False Ketoconazol e 2 % shampoo [generic] APPLY SHAMPOO TOPICALLY TO SCALP DURING HAIR WASHINGDX: ELVIA DERM OF SCALP For DX- ELVIA DERM OF SCALP 12/12 Inactiv e 2023 74529 37979 4 Topica l False THERA SILICONE SKIN GUARD Topical Twice daily 1 APPLICATION TOPICALLY IN THE MORNING AND AT BEDTIME TO SCROTUM For DX- PREVENTION 2023 0000 Active 2023 Twice daily Topica l False Selenium sulfide 2.5 % lotion [generic] 2.5 % Topical EVERY MONDAY, MONDAY AND MONDAY AFTER SHOWER For DANDRUFF 2.5 % 2023 00/00 /0000 Active 2023 37762 60165 4 3 times a week Topica l False Nystatin (bulk) 100 million unit powder [generic] 100 million Topical Twice daily as needed For EXOCORATION 100 million 12/20 Inactiv e 2023 21751 45201 1 Twice daily as needed Topica l False Ketoconazol e 2 % shampoo [generic] Once daily APPLY SHAMPOO TOPICALLY TO SCALP DURING HAIR WASHING ON SHOWER DAYS- , , MON For ELVIA DERM OF SCAP 2 % 2023 0000 /0000 Active 2023 56043 58037 4 Once daily Topica l False Nystatin 100,000 unit/gram topical cream [generic] 1 mague Topical Twice daily as needed For EXOCORATION 1 mague 06/05 Inactiv e 2023 15704 16404 5 Twice daily as needed Topica l False Nystatin 100,000 unit/gram topical powder [generic] 100,000 unit Topical Twice daily to scrotum with AM and PM care For Scrotal excoriation 100,000 unit 06/05 Inactiv e 2023 47256 84512 5 Twice daily Topica l False Problems [...] weight Temperature SpO2 Blood Sugar Pulse Respirations 23523 209 19409 2 78.00 mm[Hg] - Sitting 130.00 mm[Hg] - Sitting 55853 210 11541 6 80.00 mm[Hg] - Sitting 132.00 mm[Hg] - Sitting 19718 211 15602 5 78.00 mm[Hg] - Sitting 125.00 mm[Hg] - Sitting 77422 216 87491 1 254.10 [place] 36936 216 94061 2 79.00 mm[Hg] - Sitting 157.00 mm[Hg] - Sitting 73 NI 254.10 NI 36.30 Tympanic 95.00 % 72.00/ min 16.00/min 63086 216 20660 4 98.80 Tympanic 93805 216 40609 2 78.00 mm[Hg] - Sitting 164.00 mm[Hg] - Sitting 43730 217 80469 3 98.20 Tympanic 56705 217 82013 5 73.00 mm[Hg] - Sitting 159.00 mm[Hg] - Sitting 47719 217 72052 9 98.40 Forehead Scan 51930 218 86007 3 97.90 Tympanic 25056 218 19958 5 77.00 mm[Hg] - Sitting 137.00 mm[Hg] - Sitting 83371 219 80854 0 97.70 Tympanic 29968 219 12351 6 97.60 Tympanic 73100 219 86690 4 76.00 mm[Hg] - Sitting 139.00 mm[Hg] - Sitting 26633 219 70694 4 97.80 Forehead Scan 83114 220 59625 9 97.90 Tympanic 30807 220 63884 9 76.00 mm[Hg] - Sitting 138.00 mm[Hg] - Sitting 97812 220 19245 6 98.10 Tympanic 03722 221 59298 5 67.00 mm[Hg] - Sitting 142.00 mm[Hg] - Sitting 19441 221 70365 8 98.20 Tympanic 91799 221 71219 0 98.30 Tympanic 44952 222 76414 7 98.20 Tympanic 68738 222 72637 8 97.90 Tympanic 44052 223 58199 3 98.20 Tympanic 62942 223 17067 3 98.00 Tympanic 05854 224 60600 0 59.00 mm[Hg] - Sitting 111.00 mm[Hg] - Sitting 98.40 Forehead Scan 95.00 % 56.00/ min 18.00/min 42755 224 48337 9 98.20 Forehead Scan 72573 224 81533 3 97.90 Tympanic 55561 225 36037 4 98.20 Tympanic 57926 225 12813 8 97.50 Forehead Scan 53456 228 03721 0 55.00 mm[Hg] - Sitting 118.00 mm[Hg] - Sitting 98.40 Tympanic 69.00/ min 68491 229 17152 8 78.00 mm[Hg] - Sitting 152.00 mm[Hg] - Sitting 19474 230 94564 0 62.00 mm[Hg] - Sitting 122.00 mm[Hg] - Sitting 99526 231 82768 7 72.00 mm[Hg] - Lying Down 140.00 mm[Hg] - Lying Down 17530 101 71803 3 97.70 Forehead Scan 49137 101 79176 1 254.10 NI 69.00/ min 27697 101 68709 9 72.00 mm[Hg] - Sitting 142.00 mm[Hg] - Sitting 97.70 Tympanic 18.00/min 33378 101 55256 3 72.00 mm[Hg] - Lying Down 142.00 mm[Hg] - Lying Down 19270 102 58790 8 68.00 mm[Hg] - Lying Down 152.00 mm[Hg] - Lying Down 19266 103 54752 5 74.00 mm[Hg] - Sitting 158.00 mm[Hg] - Sitting 39639 104 95415 9 78.00 mm[Hg] - Sitting 144.00 mm[Hg] - Sitting 74246 105 28938 5 68.00 mm[Hg] - Sitting 138.00 mm[Hg] - Sitting 23351 106 09852 1 70.00 mm[Hg] - Sitting 138.00 mm[Hg] - Sitting 27336 107 27756 1 67.00 mm[Hg] - Sitting 142.00 mm[Hg] [...]
--- OUTSIDE RECORDS SUMMARY | 2024-07-26 11:20 | External Medical Summary | Continuity Of Care Document ---
Author Name Unknown Address [address] [place] [address] Organization [facility] () Care Team Providers Care Inspector Floor Sub Assembly Name Role Phone DO Pritchett Amy Primary Care Provider [phone] Allergies Allergy Reaction Start Date End Date Status AMINOGLYCOSIDES Active CIPRO Active GENTAMICIN Active NSAIDS (NON-STEROIDAL ANTI-INFLAMMATORY DRUG) 0 Active IBUPROFEN Active QUINOLONES Active VALIUM Active Medications Medication Instructions Dosage Start Date End Date Status Order Date Drug Code Frequency Route of Admin Diagnosis Code Substitutions Allowed Spikevax [id number](1 2y up)(PF) 50 mcg/0.5 mL intramuscul ar suspension [COVID [id number](12 up)(andu)(P F)] 0.5mL Intramuscular 1 time Monitory 15 Minutes post injection for adverse effects; record site/temp For COVID 19 PREVENTION 0.5mL 01/02 Inactiv e 2023 42879 13274 4 1 time Intram uscula r False [facility] - Nurse initials indicate verificatio n that [id number] vaccine was administere d by [facility] Representat jon 1 Intramuscular 1 time ( Indicate vaccine type) For vaccine 1 05/03 Inactiv e 2023 1 time Intram uscula r False Lisinopril 40 mg tablet [generic] TAKE ONE (1) TABLET BY MOUTH IN THE MORNING. For DX- HTN 1 2023 Active 2023 93959 76726 1 Once daily By Mouth False Tizanidine 2 mg tablet [generic] TAKE ONE (1) TABLET BY MOUTH ONCE DAILY For MUSCLE SPASM 1 2023 Active 2023 08416 90971 0 Once daily By Mouth M62.838 False Tamsulosin 0.4 mg capsule [generic] TAKE (1) CAPSULE BY MOUTH AT BEDTIME For SPASMS 1 2023 Active 2023 27654 63399 0 Once daily By Mouth False Aspirin 81 mg tablet Once daily 1 TABLET BY MOUTH IN THE MORNING For DX- CAD DO NOT CRUSH, CHEW OR BREAK 81 mg 06/12 Inactiv e 2023 Once daily By Mouth False Baclofen 20 mg tablet [generic] 20 mg By Mouth 4 times a day For DX- MUSCLE SPASMS 20 mg 12/12 Inactiv e 2023 56441 63329 1 4 times a day By Mouth False Calcium citrate 250 mg tablet Once daily 4 TABLET BY MOUTH For DX- SUPPLEMENT 250 mg calci 12/12 Inactiv e 2023 Once daily By Mouth False Co Q-10 100 mg capsule 100 mg By Mouth Once daily For DX- SUPPLEMENT 100 mg 06/20 Inactiv e 2023 52820 44189 5 Once daily By Mouth False Furosemide 20 mg tablet [generic] 20 mg By Mouth Once daily For DX-CHF 20 mg 12/12 Inactiv e 2023 47146 16767 0 Once daily By Mouth False Gabapentin 300 mg capsule [generic] 300 mg By Mouth 3 times a day For DX- NEUROPATHY 300 mg 12/12 Inactiv e 2023 08186 09676 4 3 times a day By Mouth False Loratadine 10 mg tablet [generic] 10 mg By Mouth Once daily For DX- ALLERGIES 10 mg 2023 Active 2023 55283 64425 1 Once daily By Mouth False Miralax 17 gram/dose oral powder 17 gram/dose By Mouth IN THE MORNING Mix 1 TABLESPOON IN 8 OZ OF FLUID HOLD FOR LOOSE STOOLS For DX- CONSTIPATION 17 gram/do se 12/12 Inactiv e 2023 77116 38766 0 Once daily By Mouth False Paroxetine 30 mg tablet [generic] 30 mg By Mouth Once daily For DX- DEPRESSION 30 mg 2023 00/00 /0000 Active 2023 54423 26363 3 Once daily By Mouth False Potassium citrate ER 15 mEq (1,620 mg) tablet,exte nded release [generic] 15 mEq By Mouth 3 times a day For DX- SUPPLEMENT/DI URETIC USE/ HYPOCITRAUIRA DO NOT CRUSH 15 mEq 12/12 Inactiv e 2023 55438 43737 1 3 times a day By Mouth [...] For DX- DANDRUFF 12/12 Inactiv e 2023 76058 38150 4 3 times a week Topica l False Acetaminoph en 325 mg tablet [generic] TAKE 2 TABS (650MG) BY MOUTH EVERY 4 HOURS NEEDED FOR TEMP >100 NOT TO EXCEED 3GM/24HRS TAKE 2 TABS (650MG) BY MOUTH EVERY 4 HOURS NEEDED FOR TEMP >100 NOT TO EXCEED 3GM/24HRS For DX-FEVER 2 12/12 Inactiv e 2023 95008 53251 0 By Mouth False MILK OF MAGNESIA ADMINISTER 30 ML BY MOUTH ONCE DAILY NEEDED FOR CONSTIPATION X3 DAYS WITH NO BM. For DX- CONSTIPATION 30ML 12/12 Inactiv e 2023 25592 05523 9 By Mouth False Enema Disposable 19 gram-7 gram/118 mL ADMINISTER ONE ENEMA RECTALLY ONCE DAILY NEEDED FOR CONSTIPATION ON DAY 6 OF NO BM For DX- CONSTIPATION 12/12 Inactiv e 2023 66198 13229 1 Rectal False TUMS EXTRA STR 750MG TAKE (1) TABLET BY MOUTH THREE TIMES DAILY NEEDED FOR INDIGESTION For DX- INDIGESTION 1 12/12 Inactiv e 2023 69330 84636 8 By Mouth False Vitamin D3 25 [...] CONSTIPATION 10 mg 12/12 Inactiv e 2023 45074 80514 1 Rectal False Melatonin 3 mg tablet [generic] 3 mg By Mouth As Needed For DX-INSOMMIA 3 mg 12/12 Inactiv e 2023 61679 07881 8 By Mouth False Hydrocortis one 1 % topical cream [generic] 1 % Topical As Needed For DX- PAIN 1 % 12/12 Inactiv e 2023 10874 36590 1 Topica l False HYDROCORTIS ONE/PARMOXI NE [...] 5-10 50 mg 12/20 Inactiv e 2023 51852 89580 0 Every 4 hours as needed By Mouth False Tylenol 325 mg tablet 325 mg By Mouth Every 4 hours as needed For DX- PAIN PRN FOR MILD PAIN, DO NOT EXCEED 3000MG APAP/24 HOURS 325 mg 12/20 Inactiv e 2023 81010 01195 0 Every 4 hours as needed By Mouth False Baclofen 20 mg tablet [generic] 20 mg By Mouth 4 times a day For MUSCLE SPASMS 20 mg 12/20 Inactiv e 2023 16616 61066 1 4 times a day By Mouth False Calcium citrate 250 mg tablet [generic] Once daily TAKE 4 TABLETS (1000MG) BY MOUTH For SUPPLEMENT 1000 MG 06/26 Inactiv e 2023 41247 18431 6 Once daily By Mouth False Dulcolax (bisacodyl) 10 mg rectal suppository 10 mg Rectal Once daily For CONSTIPATION *MAY HOLD FOR LOOSE STOOLS* 10 mg 2023 Active 2023 62791 13946 1 Once daily Rectal False Gabapentin 300 mg capsule [generic] 300 mg By Mouth 3 times a day For NEUROPATHY 300 mg 2023 Active 2023 42874 84374 4 3 times a day By Mouth False Potassium citrate ER 15 mEq (1,620 mg) tablet,exte nded release [generic] 15 mEq By Mouth 3 times a day For SUPPLEMENT/DI URETIC USE/HYPOCITRA URIA 15 mEq 06/11 Inactiv e 2023 71804 49878 1 3 times a day By Mouth False Potassium chloride ER 20 mEq tablet,exte nded release [generic] 20 mEq By Mouth 3 times a day *DO NOT CRUSH, CHEW OR BREAK* For SUPPLEMENT 20 mEq 12/18 Inactiv e 2023 90473 19942 1 3 times a day By Mouth False Tizanidine 4 mg tablet [generic] 4 mg By Mouth Once daily For MUSCLE SPASMS 4 mg 2023 Active 2023 48565 51663 0 Once daily By Mouth False Tylenol 325 mg tablet 2 tabs By Mouth Every 4 hours as needed For Fever >100 DO NOT EXCEED 3000 MG APAP/24 Hours 2 tabs 12/20 Inactiv e 2023 98030 13343 0 Every 4 hours as needed By Mouth False Dulcolax (bisacodyl) 10 mg rectal suppository Daily as needed For Constipation 1 sup 12/20 Inactiv e 2023 09838 35569 1 Daily as needed Rectal False Fleet Enema 19 gram-7 gram/118 mL 1 Rectal Daily as neededFor Constipation 1 12/20 Inactiv e 2023 67087 38620 6 Daily as needed Rectal False Milk of Magnesia 400 mg/5 mL oral suspension [Magnesium hydroxide] PRN 30ml By Mouth Daily as needed for constipation one time daily if no BM, on day 4 of no BM (PRN refer to instructions) For Constipation For Constipatioin 30ml 12/20 Inactiv e 2023 24659 40756 6 1 time By Mouth False Problems [...] of urinary device 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 07/21 Active [...] weight Temperature SpO2 Blood Sugar Pulse Respirations 01027 208 53825 9 82.00 mm[Hg] - Sitting 128.00 mm[Hg] - Sitting 209 53113 2 78.00 mm[Hg] - Sitting 130.00 mm[Hg] - Sitting 12650 210 82930 6 80.00 mm[Hg] - Sitting 132.00 mm[Hg] - Sitting 211 99880 5 78.00 mm[Hg] - Sitting 125.00 mm[Hg] - Sitting 63393 216 21441 1 254.10 [place] [address] 216 90099 2 79.00 mm[Hg] - Sitting 157.00 mm[Hg] - Sitting 73 NI 254.10 NI 36.30 Tympanic 95.00 % 72.00/ min 16.00/min 98767 216 80518 4 98.80 Tympanic 60151 216 15617 2 78.00 mm[Hg] - Sitting 164.00 mm[Hg] - Sitting 92750 217 73550 3 98.20 Tympanic 99541 217 72016 5 73.00 mm[Hg] - Sitting 159.00 mm[Hg] - Sitting 04551 217 55947 9 98.40 Forehead Scan 64344 218 70908 3 97.90 Tympanic 60418 218 48822 5 77.00 mm[Hg] - Sitting 137.00 mm[Hg] - Sitting 69263 219 65814 0 97.70 Tympanic 32668 219 89390 6 97.60 Tympanic 75586 219 32381 4 76.00 mm[Hg] - Sitting 139.00 mm[Hg] - Sitting 08410 219 20902 4 97.80 Forehead Scan 64733 220 60164 9 97.90 Tympanic 09088 220 33376 9 76.00 mm[Hg] - Sitting 138.00 mm[Hg] - Sitting 24625 220 55118 6 98.10 Tympanic 89103 221 15826 5 67.00 mm[Hg] - Sitting 142.00 mm[Hg] - Sitting 42625 221 03632 8 98.20 Tympanic 50983 221 48756 0 98.30 Tympanic 36425 222 86550 7 98.20 Tympanic 17771 222 39019 8 97.90 Tympanic 95196 223 48876 3 98.20 Tympanic 46406 223 96886 3 98.00 Tympanic 76053 224 13177 0 59.00 mm[Hg] - Sitting 111.00 mm[Hg] - Sitting 98.40 Forehead Scan 95.00 % 56.00/ min 18.00/min 99693 224 20250 9 98.20 Forehead Scan 42055 224 28729 3 97.90 Tympanic 30518 225 70043 4 98.20 Tympanic 50733 225 08552 8 97.50 Forehead Scan 56268 228 18797 0 55.00 mm[Hg] - Sitting 118.00 mm[Hg] - Sitting 98.40 Tympanic 69.00/ min 29383 229 43935 8 78.00 mm[Hg] - Sitting 152.00 mm[Hg] - Sitting 21750 230 97433 0 62.00 mm[Hg] - Sitting 122.00 mm[Hg] - Sitting 80225 231 22222 7 72.00 mm[Hg] - Lying Down 140.00 mm[Hg] - Lying Down 96909 101 86747 3 97.70 Forehead Scan 09888 101 30460 1 254.10 NI 69.00/ min 91384 101 26104 9 72.00 mm[Hg] - Sitting 142.00 mm[Hg] - Sitting 97.70 Tympanic 18.00/min 03708 101 15347 3 72.00 mm[Hg] - Lying Down 142.00 mm[Hg] - Lying Down 39537 102 03144 8 68.00 mm[Hg] - Lying Down 152.00 mm[Hg] - Lying Down 72665 103 58310 5 74.00 mm[Hg] - Sitting 158.00 mm[Hg] - Sitting 68244 104 54921 9 78.00 mm[Hg] - Sitting 144.00 mm[Hg] - Sitting 20496 105 83827 5 68.00 mm[Hg] - Sitting 138.00 mm[Hg] - Sitting 56075 106 46797 1 70.00 mm[Hg] - Sitting 138.00 mm[Hg] - Sitting 31870 107 44524 1 67.00 mm[Hg] - Sitting 142.00 mm[Hg] [...]
--- OUTSIDE RECORDS SUMMARY | 2024-07-26 11:20 | External Medical Summary | Continuity Of Care Document ---
Author Name Unknown Address [address] [id number] Organization [facility] () Care Team Providers Care Banana Carrier Name Role Phone DO Pritchett Amy Primary Care Provider [phone] Allergies Allergy Reaction Start Date End Date Status AMINOGLYCOSIDES Active CIPRO Active GENTAMICIN Active NSAIDS (NON-STEROIDAL ANTI-INFLAMMATORY DRUG) 0 Active IBUPROFEN Active QUINOLONES Active VALIUM Active Medications Medication Instructions Dosage Start Date End Date Status Order Date Drug Code Frequency Route of Admin Diagnosis Code Substitutions Allowed Spikevax [id number](1 2y up)(PF) 50 mcg/0.5 mL intramuscul ar suspension [COVID [id number](12 up)(andu)(P F)] 0.5mL Intramuscular 1 time Monitory 15 Minutes post injection for adverse effects; record site/temp For COVID 19 PREVENTION 0.5mL 01/02 Inactiv e 2023 92381 35380 4 1 time Intram uscula r False [facility] - Nurse initials indicate verificatio n that [id number] vaccine was administere d by [facility] jon 1 Intramuscular 1 time ( Indicate vaccine type) For vaccine 1 05/03 Inactiv e 2023 1 time Intram uscula r False Lisinopril 40 mg tablet [generic] TAKE ONE (1) TABLET BY MOUTH IN THE MORNING. For DX- HTN 1 2023 Active 2023 73258 92115 1 Once daily By Mouth False Tizanidine 2 mg tablet [generic] TAKE ONE (1) TABLET BY MOUTH ONCE DAILY For MUSCLE SPASM 1 2023 Active 2023 79769 26091 0 Once daily By Mouth M62.838 False Tamsulosin 0.4 mg capsule [generic] TAKE (1) CAPSULE BY MOUTH AT BEDTIME For SPASMS 1 2023 Active 2023 11317 91701 0 Once daily By Mouth False Aspirin 81 mg tablet Once daily 1 TABLET BY MOUTH IN THE MORNING For DX- CAD DO NOT CRUSH, CHEW OR BREAK 81 mg 06/12 Inactiv e 2023 Once daily By Mouth False Baclofen 20 mg tablet [generic] 20 mg By Mouth 4 times a day For DX- MUSCLE SPASMS 20 mg 12/12 Inactiv e 2023 26176 86487 1 4 times a day By Mouth False Calcium citrate 250 mg tablet Once daily 4 TABLET BY MOUTH For DX- SUPPLEMENT 250 mg calci 12/12 Inactiv e 2023 Once daily By Mouth False Co Q-10 100 mg capsule 100 mg By Mouth Once daily For DX- SUPPLEMENT 100 mg 06/20 Inactiv e 2023 94852 34293 5 Once daily By Mouth False Furosemide 20 mg tablet [generic] 20 mg By Mouth Once daily For DX-CHF 20 mg 12/12 Inactiv e 2023 75862 49022 0 Once daily By Mouth False Gabapentin 300 mg capsule [generic] 300 mg By Mouth 3 times a day For DX- NEUROPATHY 300 mg 12/12 Inactiv e 2023 87001 12765 4 3 times a day By Mouth False Loratadine 10 mg tablet [generic] 10 mg By Mouth Once daily For DX- ALLERGIES 10 mg 2023 Active 2023 39844 65483 1 Once daily By Mouth False Miralax 17 gram/dose oral powder 17 gram/dose By Mouth IN THE MORNING Mix 1 TABLESPOON IN 8 OZ OF FLUID HOLD FOR LOOSE STOOLS For DX- CONSTIPATION 17 gram/do se 12/12 Inactiv e 2023 44674 63636 0 Once daily By Mouth False Paroxetine 30 mg tablet [generic] 30 mg By Mouth Once daily For DX- DEPRESSION 30 mg 2023 00/00 /0000 Active 2023 74303 11701 3 Once daily By Mouth False Potassium citrate ER 15 mEq (1,620 mg) tablet,exte nded release [generic] 15 mEq By Mouth 3 times a day For DX- SUPPLEMENT/DI URETIC USE/ HYPOCITRAUIRA DO NOT CRUSH 15 mEq 12/12 Inactiv e 2023 20448 13963 1 3 times a day By Mouth [...] For DX- DANDRUFF 12/12 Inactiv e 2023 74661 53614 4 3 times a week Topica l False Acetaminoph en 325 mg tablet [generic] TAKE 2 TABS (650MG) BY MOUTH EVERY 4 HOURS NEEDED FOR TEMP >100 NOT TO EXCEED 3GM/24HRS TAKE 2 TABS (650MG) BY MOUTH EVERY 4 HOURS NEEDED FOR TEMP >100 NOT TO EXCEED 3GM/24HRS For DX-FEVER 2 12/12 Inactiv e 2023 71576 77608 0 By Mouth False MILK OF MAGNESIA ADMINISTER 30 ML BY MOUTH ONCE DAILY NEEDED FOR CONSTIPATION X3 DAYS WITH NO BM. For DX- CONSTIPATION 30ML 12/12 Inactiv e 2023 67297 90597 9 By Mouth False Enema Disposable 19 gram-7 gram/118 mL ADMINISTER ONE ENEMA RECTALLY ONCE DAILY NEEDED FOR CONSTIPATION ON DAY 6 OF NO BM For DX- CONSTIPATION 12/12 Inactiv e 2023 61530 12481 1 Rectal False TUMS EXTRA STR 750MG TAKE (1) TABLET BY MOUTH THREE TIMES DAILY NEEDED FOR INDIGESTION For DX- INDIGESTION 1 12/12 Inactiv e 2023 17752 40740 8 By Mouth False Vitamin D3 25 [...] CONSTIPATION 10 mg 12/12 Inactiv e 2023 07394 20945 1 Rectal False Melatonin 3 mg tablet [generic] 3 mg By Mouth As Needed For DX-INSOMMIA 3 mg 12/12 Inactiv e 2023 43123 38156 8 By Mouth False Hydrocortis one 1 % topical cream [generic] 1 % Topical As Needed For DX- PAIN 1 % 12/12 Inactiv e 2023 76180 55635 1 Topica l False HYDROCORTIS ONE/PARMOXI NE [...] 5-10 50 mg 12/20 Inactiv e 2023 26078 70929 0 Every 4 hours as needed By Mouth False Tylenol 325 mg tablet 325 mg By Mouth Every 4 hours as needed For DX- PAIN PRN FOR MILD PAIN, DO NOT EXCEED 3000MG APAP/24 HOURS 325 mg 12/20 Inactiv e 2023 53158 45709 0 Every 4 hours as needed By Mouth False Baclofen 20 mg tablet [generic] 20 mg By Mouth 4 times a day For MUSCLE SPASMS 20 mg 12/20 Inactiv e 2023 62703 77755 1 4 times a day By Mouth False Calcium citrate 250 mg tablet [generic] Once daily TAKE 4 TABLETS (1000MG) BY MOUTH For SUPPLEMENT 1000 MG 06/26 Inactiv e 2023 51944 97033 6 Once daily By Mouth False Dulcolax (bisacodyl) 10 mg rectal suppository 10 mg Rectal Once daily For CONSTIPATION *MAY HOLD FOR LOOSE STOOLS* 10 mg 2023 Active 2023 80441 80597 1 Once daily Rectal False Gabapentin 300 mg capsule [generic] 300 mg By Mouth 3 times a day For NEUROPATHY 300 mg 2023 Active 2023 98739 76551 4 3 times a day By Mouth False Potassium citrate ER 15 mEq (1,620 mg) tablet,exte nded release [generic] 15 mEq By Mouth 3 times a day For SUPPLEMENT/DI URETIC USE/HYPOCITRA URIA 15 mEq 06/11 Inactiv e 2023 38200 49654 1 3 times a day By Mouth False Potassium chloride ER 20 mEq tablet,exte nded release [generic] 20 mEq By Mouth 3 times a day *DO NOT CRUSH, CHEW OR BREAK* For SUPPLEMENT 20 mEq 12/18 Inactiv e 2023 84016 67272 1 3 times a day By Mouth False Tizanidine 4 mg tablet [generic] 4 mg By Mouth Once daily For MUSCLE SPASMS 4 mg 2023 Active 2023 08263 45441 0 Once daily By Mouth False Tylenol 325 mg tablet 2 tabs By Mouth Every 4 hours as needed For Fever >100 DO NOT EXCEED 3000 MG APAP/24 Hours 2 tabs 12/20 Inactiv e 2023 71806 17506 0 Every 4 hours as needed By Mouth False Dulcolax (bisacodyl) 10 mg rectal suppository Daily as needed For Constipation 1 sup 12/20 Inactiv e 2023 95378 95726 1 Daily as needed Rectal False Fleet Enema 19 gram-7 gram/118 mL 1 Rectal Daily as neededFor Constipation 1 12/20 Inactiv e 2023 65852 67894 6 Daily as needed Rectal False Milk of Magnesia 400 mg/5 mL oral suspension [Magnesium hydroxide] PRN 30ml By Mouth Daily as needed for constipation one time daily if no BM, on day 4 of no BM (PRN refer to instructions) For Constipation For Constipatioin 30ml 12/20 Inactiv e 2023 60136 76066 6 1 time By Mouth False Melatonin 3 mg tablet [generic] 3 mg By Mouth Once daily As Needed For INSOMNIA 3 mg 12/20 Inactiv e 2023 30998 42191 8 Once daily By Mouth False Hydrocortis one 1 % topical cream [generic] 1 % Rectal Four times daily as needed For hemorroid pain 1 % 12/20 Inactiv e 2023 97358 57844 1 Four times daily as needed Rectal False X-STGH ANTACID 750MG CHEW TAKE (1) TABLET BY MOUTH THREE TIMES DAILY NEEDED FOR INDIGESTION 12/20 Inactiv e 2023 15343 06837 4 Three times daily as needed Saline Mist 0.65 % nasal spray aerosol 0.65 % Nares Four times daily as needed For DRYNESS 0.65 % 12/20 Inactiv e 2023 44856 38558 8 Four times daily as needed Nares False Vicks Vaporub 4.7 %-1.2 %-2.6 % topical ointment Apply topically to chest Three times daily as needed For CONGESTION 4.7-1.2 -2.6 12/20 Inactiv e 2023 02230 49160 1 Three times daily as needed Topica l False VITAMIN D3 2000U CAP TAKE ONE (1) CAPSULE BY MOUTH DAILY* DO NOT CRUSH, CHEW OR BREAK* For Supplement 1 capsule 12/19 Inactiv e 2023 16507 49483 0 Once daily By Mouth False Potassium chloride ER 20 mEq tablet,exte nded release(par t/cryst) [generic] TAKE (1) TABLET BY MOUTH THREE TIMES DAILY (MORNING, AFTERNOON, EVENING)*DO NOT CRUSH, CHEW, OR BREAK* For SUPPLEMENT 20 MEQ 06/11 Inactiv e 2023 62923 83403 5 3 times a day By Mouth False Aspirin 81 mg tablet,camron yed release [generic] TAKE ONE (1) TABLET BY MOUTH ONCE DAILY*DO NOT CRUSH, CHEW OR BREAK* For CAD 81 MG 12/22 Inactiv e 2023 05078 17942 0 Once daily By Mouth False Furosemide 20 mg tablet [generic] TAKE 1 AND 1/2 TABLETS (30MG) BY MOUTH ONCE DAILY For CHF 30mg 2023 Active 2023 33572 00619 1 Once daily By Mouth False Polyethylen e glycol 3350 17 gram/dose oral powder [generic] MIX 17 GRAMS (1 CAPFUL) IN 60Z OF LIQUID AND DRINK BY MOUTH ONCE DAILY *HOLD FOR LOOSE STOOLS* For constipation 17 g 2023 Active 2023 35241 85204 3 Once daily By Mouth False Vitamin D3 50 mcg (2,000 unit) capsule Once daily TAKE ONE (1) CAPSULE BY MOUTH DAILY* DO NOT CRUSH, CHEW OR BREAK* For Supplement 1 capsule 02/07 Inactiv e 2023 18213 51354 2 Once daily By Mouth False Fleet Enema 19 gram-7 gram/118 mL 1 Rectal Daily as neededFor Constipation 1 2023 0000 Active 2023 67600 82490 6 Daily as needed Rectal False Tums E-X 300 mg (as calcium carbonate 750 mg) chewable tablet 1 tab By Mouth TAKE (1) TABLET BY MOUTH THREE TIMES DAILY NEEDED FOR INDIGESTION 1 tab 202300 /0000 Active 2023 53760 66422 1 Three times daily as needed By Mouth False Tylenol 325 mg tablet 2 tabs By Mouth Every 4 hours as needed For Fever >100 DO NOT EXCEED 3000 MG APAP/24 Hours 2 tabs 202300 /0000 Active 2023 16502 36374 0 Every 4 hours as needed By Mouth False Vicks Vaporub 4.7 %-1.2 %-2.6 % topical ointment Apply topically to chest Three times daily as needed For CONGESTION topical 202300 Active 2023 64393 76662 1 Three times daily as needed Topica l False Tylenol 325 mg tablet 2 tabs By Mouth Every 4 hours as needed For DX- PAIN PRN FOR MILD PAIN, DO NOT EXCEED 3000MG APAP/24 HOURS 2 tabs 202300 Active 2023 97163 00280 0 Every 4 hours as needed By Mouth False Tramadol 50 mg tablet [generic] 1 tab By Mouth Every 4 hours as needed For DX- PAIN 5-10 1 tab 03/10 Inactiv e 2023 37135 66523 0 Every 4 hours as needed By Mouth False Saline Mist 0.65 % nasal spray aerosol 2 sprays Nares Four times daily as needed For DRYNESS 2 sprays 202300 / Active 2023 20738 41469 8 Four times daily as needed Nares False Dulcolax (bisacodyl) 10 mg rectal suppository Daily as needed For Constipation 1 sup 202300 / Active 2023 51574 00422 1 Daily as needed Rectal False Hydrocortis one-pramoxi ne 1 %-1 % rectal cream [generic] 1 mague Rectal Four times daily as needed For hemorroid pain 1 mague 202300 /0000 Active 2023 35646 20003 4 Four times daily as needed Rectal False Melatonin 3 mg tablet [generic] 1 tab By Mouth At bedtime as needed For INSOMNIA 1 tab 12/24 Inactiv e 2023 75280 03486 8 At bedtime as needed By Mouth False Milk of Magnesia 400 mg/5 mL oral suspension 30ml By Mouth Daily as needed Daily as needed for constipation one time daily if no BM, on day 4 of no BM (PRN refer to instructions) For Constipation For Constipatioin 30ml 2023 Active 2023 12472 69420 2 Daily as needed By Mouth False Baclofen 20 mg tablet [generic] 20 mg By Mouth 4 times a day For MUSCLE SPASMS 20 mg 2023 Active 2023 76610 97571 1 4 times a day By Mouth False Melatonin 3 mg tablet [generic] 1 tab By Mouth At bedtime as needed For INSOMNIA 1 tab 2023 Active 2023 03447 61101 8 At bedtime as needed By Mouth False Bactrim DS 800 mg-160 mg tablet 1 tab By Mouth Twice daily For URINARY TRACT INFECTION, SITE NOT SPECIFIED 1 tab 01/06 Inactiv e 2023 87076 00600 1 Twice daily By Mouth N39.0 False Cefdinir 300 mg capsule [generic] 300 mg By Mouth Twice daily For UTI 300 mg 01/07 Inactiv e 2023 29744 40667 0 Twice daily By Mouth False Cefdinir 300 mg capsule [generic] 300 mg By Mouth Twice daily For UTI 300 mg 01/17 Inactiv e 2023 22234 13166 0 Twice daily By Mouth False Zyrtec 10 mg tablet 10 mg By Mouth Once daily For sinus congestion 10 mg 01/22 Inactiv e 2023 22669 19761 0 Once daily By Mouth False Tobramycin 0.3 %-dexametha sone 0.1 % eye drops,suspe nsion [generic] 0.3-0.1 % Left Eye 4 times a day For eye infection 0.3-0.1 % 02/05 Inactiv e 2023 65099 93927 5 4 times a day Left Eye False Fluconazole 150 mg tablet [generic] 150 mg By Mouth 1 time For yeast infection 150 mg 02/15 Inactiv e 2023 45584 67466 2 1 time By Mouth False Tramadol 50 mg tablet [generic] 1 tab By Mouth Every 4 hours as needed For DX- PAIN 5-10 1 tab 2023 00/00 /0000 Active 2023 93963 93282 0 Every 4 hours as needed By Mouth False Tobramycin 0.3 %-dexametha sone 0.1 % eye drops,suspe nsion [generic] 1 drop Left Eye 4 times a day For Inflammation of left eye 1 drop 05/08 Inactiv e 2023 86657 22382 5 4 times a day Left Eye False Voltaren Arthritis Pain 1 % topical gel 2 gm Topical Twice daily to rigth shoulder for 2 weeks For pain 2 gm 05/08 Inactiv e 2023 87819 61912 1 Twice daily Topica l False Chlorthalid one 25 mg tablet [generic] 12.5mg By Mouth Once daily For HTN 12.5mg 05/06 Inactiv e 2023 72637 26737 0 Once daily By Mouth False Chlorthalid one 25 mg tablet [generic] 12.5mg By Mouth Once daily For HTN 12.5mg 05/07 Inactiv e 2023 17814 46772 0 Once daily By Mouth False Chlorthalid one 25 mg tablet [generic] 05/07 Inactiv e 2023 35785 23261 0 Chlorthalid one 25 mg tablet [generic] 12.5mg By Mouth Once daily For HTN 12.5mg 06/26 Inactiv e 2023 33172 28447 0 Once daily By Mouth False Norvasc 5 mg tablet 5mg By Mouth Once daily, hold medication if systolic is less than 90 For HYPERTENSIVE HEART DISEASE WITHOUT HEART FAILURE 5mg 06/03 Inactiv e 2023 61073 96451 1 Once daily By Mouth I11.9 False Norvasc 5 mg tablet 5mg By Mouth Once daily, hold medication if systolic is less than 90 For HYPERTENSIVE HEART DISEASE WITHOUT HEART FAILURE 5mg 06/03 Inactiv e 2023 33533 00728 1 Once daily By Mouth I11.9 False Problems Code Description Start Date End [...] adjustment of urinary device 07/21/2023 Active 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 Active N31.9 Neuromuscular dysfun ction of bladder, unspecified 07/21/2023 Active G82.50 Quadriplegia, unspecified 06/21/2024 Active S14.102S Unspecified injury a t C2 level of cervical spinal cord, sequela 06/21/2024 Active S14.109A Unspecified injury a t unspecified level of cervical spinal cord, initial encounter 06/21/2024 Active M62.81 Muscle weakness (generalized) 06/21/2024 00/00/ 0000 Active VITAL SIGNS Date Time Diastolic blood pressure Systolic blood pressure Body height Body weight Temperature SpO2 Blood Sugar Pulse Respirations 87023 208 18199 9 82.00 mm[Hg] - Sitting 128.00 mm[Hg] - Sitting 75547 209 86949 2 78.00 mm[Hg] - Sitting 130.00 mm[Hg] - Sitting 50359 210 51975 6 80.00 mm[Hg] - Sitting 132.00 mm[Hg] - Sitting 60506 211 04610 5 78.00 mm[Hg] - Sitting 125.00 mm[Hg] - Sitting 91868 216 71089 1 254.10 NI 00513 216 38534 2 79.00 mm[Hg] - Sitting 157.00 mm[Hg] - Sitting 73 NI 254.10 NI 36.30 Tympanic 95.00 % 72.00/ min 16.00/min 10233 216 70893 4 98.80 Tympanic 81292 216 97788 2 78.00 mm[Hg] - Sitting 164.00 mm[Hg] - Sitting 67298 217 32202 3 98.20 Tympanic 32872 217 14898 5 73.00 mm[Hg] - Sitting 159.00 mm[Hg] - Sitting 05990 217 62910 9 98.40 Forehead Scan 35831 218 47966 3 97.90 Tympanic 02742 218 71743 5 77.00 mm[Hg] - Sitting 137.00 mm[Hg] - Sitting 93016 219 65734 0 97.70 Tympanic 00176 219 17668 6 97.60 Tympanic 20861 219 91235 4 76.00 mm[Hg] - Sitting 139.00 mm[Hg] - Sitting 33532 219 83379 4 97.80 Forehead Scan 29428 220 54067 9 97.90 Tympanic 91807 220 14243 9 76.00 mm[Hg] - Sitting 138.00 mm[Hg] - Sitting 70626 220 60953 6 98.10 Tympanic 19842 221 25465 5 67.00 mm[Hg] - Sitting 142.00 mm[Hg] - Sitting 90331 221 94137 8 98.20 Tympanic 60258 221 19061 0 98.30 Tympanic 67303 222 22711 7 98.20 Tympanic 27084 222 38712 8 97.90 Tympanic 02777 223 19074 3 98.20 Tympanic 03894 223 96873 3 98.00 Tympanic 40974 224 90389 0 59.00 mm[Hg] - Sitting 111.00 mm[Hg] - Sitting 98.40 Forehead Scan 95.00 % 56.00/ min 18.00/min 56299 224 35933 9 98.20 Forehead Scan 70859 224 28309 3 97.90 Tympanic 97931 225 67916 4 98.20 Tympanic 08250 225 27612 8 97.50 Forehead Scan 38671 228 45626 0 55.00 mm[Hg] - Sitting 118.00 mm[Hg] - Sitting 98.40 Tympanic 69.00/ min 99274 229 09096 8 78.00 mm[Hg] - Sitting 152.00 mm[Hg] - Sitting 40476 230 48051 0 62.00 mm[Hg] - Sitting 122.00 mm[Hg] - Sitting 51668 231 94018 7 72.00 mm[Hg] - Lying Down 140.00 mm[Hg] - Lying Down 55458 101 07066 3 97.70 Forehead Scan 13507 101 61694 1 254.10 NI 69.00/ min 09364 101 67587 9 72.00 mm[Hg] - Sitting 142.00 mm[Hg] - Sitting 97.70 Tympanic 18.00/min 72366 101 14640 3 72.00 mm[Hg] - Lying Down 142.00 mm[Hg] - Lying Down 83679 102 34502 8 68.00 mm[Hg] - Lying Down 152.00 mm[Hg] - Lying Down 95347 103 98200 5 74.00 mm[Hg] - Sitting 158.00 mm[Hg] - Sitting 68655 104 65168 9 78.00 mm[Hg] - Sitting 144.00 mm[Hg] - Sitting 15885 105 94724 5 68.00 mm[Hg] - Sitting 138.00 mm[Hg] - Sitting 39220 106 24932 1 70.00 mm[Hg] - Sitting 138.00 mm[Hg] [...]
--- OUTSIDE RECORDS SUMMARY | 2024-07-26 11:21 | External Medical Summary | Continuity Of Care Document ---
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 Name Role Phone DO Pritchett Amy Primary Care Provider [phone] Allergies Allergy Reaction Start Date End Date Status AMINOGLYCOSIDES Active CIPRO Active GENTAMICIN Active NSAIDS (NON-STEROIDAL ANTI-INFLAMMATORY DRUG) 0 Active IBUPROFEN Active QUINOLONES Active VALIUM Active Medications Medication Instructions Dosage Start Date End Date Status Order Date Drug Code Frequency Route of Admin Diagnosis Code Substitutions Allowed Spikevax [id number](1 2y up)(PF) 50 mcg/0.5 mL intramuscul ar suspension [COVID oxa91-33(12 up)(andu)(P F)] 0.5mL Intramuscular 1 time Monitory 15 Minutes post injection for adverse effects; record site/temp For COVID 19 PREVENTION 0.5mL 01/02 Inactiv e 2023 79596 29671 4 1 time Intram uscula r False [facility] - Nurse initials indicate verificatio n that [id number] vaccine was administere d by [facility] 1 Intramuscular 1 time ( Indicate vaccine type) For vaccine 1 05/03 Inactiv e 2023 1 time Intram uscula r False Lisinopril 40 mg tablet [generic] TAKE ONE (1) TABLET BY MOUTH IN THE MORNING. For DX- HTN 1 2023 Active 2023 77236 57271 1 Once daily By Mouth False Tizanidine 2 mg tablet [generic] TAKE ONE (1) TABLET BY MOUTH ONCE DAILY For MUSCLE SPASM 1 2023 Active 2023 65401 40410 0 Once daily By Mouth M62.838 False Tamsulosin 0.4 mg capsule [generic] TAKE (1) CAPSULE BY MOUTH AT BEDTIME For SPASMS 1 2023 Active 2023 14066 35575 0 Once daily By Mouth False Aspirin 81 mg tablet Once daily 1 TABLET BY MOUTH IN THE MORNING For DX- CAD DO NOT CRUSH, CHEW OR BREAK 81 mg 06/12 Inactiv e 2023 Once daily By Mouth False Baclofen 20 mg tablet [generic] 20 mg By Mouth 4 times a day For DX- MUSCLE SPASMS 20 mg 12/12 Inactiv e 2023 11208 08800 1 4 times a day By Mouth False Calcium citrate 250 mg tablet Once daily 4 TABLET BY MOUTH For DX- SUPPLEMENT 250 mg calci 12/12 Inactiv e 2023 Once daily By Mouth False Co Q-10 100 mg capsule 100 mg By Mouth Once daily For DX- SUPPLEMENT 100 mg 06/20 Inactiv e 2023 37157 86444 5 Once daily By Mouth False Furosemide 20 mg tablet [generic] 20 mg By Mouth Once daily For DX-CHF 20 mg 12/12 Inactiv e 2023 34638 92693 0 Once daily By Mouth False Gabapentin 300 mg capsule [generic] 300 mg By Mouth 3 times a day For DX- NEUROPATHY 300 mg 12/12 Inactiv e 2023 47546 46456 4 3 times a day By Mouth False Loratadine 10 mg tablet [generic] 10 mg By Mouth Once daily For DX- ALLERGIES 10 mg 2023 Active 2023 47170 41259 1 Once daily By Mouth False Miralax 17 gram/dose oral powder 17 gram/dose By Mouth IN THE MORNING Mix 1 TABLESPOON IN 8 OZ OF FLUID HOLD FOR LOOSE STOOLS For DX- CONSTIPATION 17 gram/do se 12/12 Inactiv e 2023 45234 01357 0 Once daily By Mouth False Paroxetine 30 mg tablet [generic] 30 mg By Mouth Once daily For DX- DEPRESSION 30 mg 2023 00/00 /0000 Active 2023 28962 47749 3 Once daily By Mouth False Potassium citrate ER 15 mEq (1,620 mg) tablet,exte nded release [generic] 15 mEq By Mouth 3 times a day For DX- SUPPLEMENT/DI URETIC USE/ HYPOCITRAUIRA DO NOT CRUSH 15 mEq 12/12 Inactiv e 2023 04854 40562 1 3 times a day By Mouth [...] For DX- DANDRUFF 12/12 Inactiv e 2023 90932 91639 4 3 times a week Topica l False Acetaminoph en 325 mg tablet [generic] TAKE 2 TABS (650MG) BY MOUTH EVERY 4 HOURS NEEDED FOR TEMP >100 NOT TO EXCEED 3GM/24HRS TAKE 2 TABS (650MG) BY MOUTH EVERY 4 HOURS NEEDED FOR TEMP >100 NOT TO EXCEED 3GM/24HRS For DX-FEVER 2 12/12 Inactiv e 2023 20694 81411 0 By Mouth False MILK OF MAGNESIA ADMINISTER 30 ML BY MOUTH ONCE DAILY NEEDED FOR CONSTIPATION X3 DAYS WITH NO BM. For DX- CONSTIPATION 30ML 12/12 Inactiv e 2023 38006 36039 9 By Mouth False Enema Disposable 19 gram-7 gram/118 mL ADMINISTER ONE ENEMA RECTALLY ONCE DAILY NEEDED FOR CONSTIPATION ON DAY 6 OF NO BM For DX- CONSTIPATION 12/12 Inactiv e 2023 67382 78622 1 Rectal False TUMS EXTRA STR 750MG TAKE (1) TABLET BY MOUTH THREE TIMES DAILY NEEDED FOR INDIGESTION For DX- INDIGESTION 1 12/12 Inactiv e 2023 36694 28689 8 By Mouth False Vitamin D3 25 [...] CONSTIPATION 10 mg 12/12 Inactiv e 2023 08620 35673 1 Rectal False Melatonin 3 mg tablet [generic] 3 mg By Mouth As Needed For DX-INSOMMIA 3 mg 12/12 Inactiv e 2023 46087 86666 8 By Mouth False Hydrocortis one 1 % topical cream [generic] 1 % Topical As Needed For DX- PAIN 1 % 12/12 Inactiv e 2023 86178 31882 1 Topica l False HYDROCORTIS ONE/PARMOXI NE [...] 5-10 50 mg 12/20 Inactiv e 2023 21748 13454 0 Every 4 hours as needed By Mouth False Tylenol 325 mg tablet 325 mg By Mouth Every 4 hours as needed For DX- PAIN PRN FOR MILD PAIN, DO NOT EXCEED 3000MG APAP/24 HOURS 325 mg 12/20 Inactiv e 2023 96213 17239 0 Every 4 hours as needed By Mouth False Baclofen 20 mg tablet [generic] 20 mg By Mouth 4 times a day For MUSCLE SPASMS 20 mg 12/20 Inactiv e 2023 40146 56977 1 4 times a day By Mouth False Calcium citrate 250 mg tablet [generic] Once daily TAKE 4 TABLETS (1000MG) BY MOUTH For SUPPLEMENT 1000 MG 06/26 Inactiv e 2023 18645 96634 6 Once daily By Mouth False Dulcolax (bisacodyl) 10 mg rectal suppository 10 mg Rectal Once daily For CONSTIPATION *MAY HOLD FOR LOOSE STOOLS* 10 mg 2023 Active 2023 11035 97474 1 Once daily Rectal False Gabapentin 300 mg capsule [generic] 300 mg By Mouth 3 times a day For NEUROPATHY 300 mg 2023 Active 2023 16569 90083 4 3 times a day By Mouth False Potassium citrate ER 15 mEq (1,620 mg) tablet,exte nded release [generic] 15 mEq By Mouth 3 times a day For SUPPLEMENT/DI URETIC USE/HYPOCITRA URIA 15 mEq 06/11 Inactiv e 2023 04207 74559 1 3 times a day By Mouth False Potassium chloride ER 20 mEq tablet,exte nded release [generic] 20 mEq By Mouth 3 times a day *DO NOT CRUSH, CHEW OR BREAK* For SUPPLEMENT 20 mEq 12/18 Inactiv e 2023 71057 88864 1 3 times a day By Mouth False Tizanidine 4 mg tablet [generic] 4 mg By Mouth Once daily For MUSCLE SPASMS 4 mg 2023 Active 2023 29713 22893 0 Once daily By Mouth False Tylenol 325 mg tablet 2 tabs By Mouth Every 4 hours as needed For Fever >100 DO NOT EXCEED 3000 MG APAP/24 Hours 2 tabs 12/20 Inactiv e 2023 60233 16641 0 Every 4 hours as needed By Mouth False Dulcolax (bisacodyl) 10 mg rectal suppository Daily as needed For Constipation 1 sup 12/20 Inactiv e 2023 87726 51388 1 Daily as needed Rectal False Fleet Enema 19 gram-7 gram/118 mL 1 Rectal Daily as neededFor Constipation 1 12/20 Inactiv e 2023 78994 31852 6 Daily as needed Rectal False Milk of Magnesia 400 mg/5 mL oral suspension [Magnesium hydroxide] PRN 30ml By Mouth Daily as needed for constipation one time daily if no BM, on day 4 of no BM (PRN refer to instructions) For Constipation For Constipatioin 30ml 12/20 Inactiv e 2023 20168 57319 6 1 time By Mouth False Melatonin 3 mg tablet [generic] 3 mg By Mouth Once daily As Needed For INSOMNIA 3 mg 12/20 Inactiv e 2023 51538 64947 8 Once daily By Mouth False Hydrocortis one 1 % topical cream [generic] 1 % Rectal Four times daily as needed For hemorroid pain 1 % 12/20 Inactiv e 2023 46243 37879 1 Four times daily as needed Rectal False X-STGH ANTACID 750MG CHEW TAKE (1) TABLET BY MOUTH THREE TIMES DAILY NEEDED FOR INDIGESTION 12/20 Inactiv e 2023 08195 05131 4 Three times daily as needed Saline Mist 0.65 % nasal spray aerosol 0.65 % Nares Four times daily as needed For DRYNESS 0.65 % 12/20 Inactiv e 2023 88311 21633 8 Four times daily as needed Nares False Vicks Vaporub 4.7 %-1.2 %-2.6 % topical ointment Apply topically to chest Three times daily as needed For CONGESTION 4.7-1.2 -2.6 12/20 Inactiv e 2023 59649 69740 1 Three times daily as needed Topica l False VITAMIN D3 2000U CAP TAKE ONE (1) CAPSULE BY MOUTH DAILY* DO NOT CRUSH, CHEW OR BREAK* For Supplement 1 capsule 12/19 Inactiv e 2023 98468 49413 0 Once daily By Mouth False Potassium chloride ER 20 mEq tablet,exte nded release(par t/cryst) [generic] TAKE (1) TABLET BY MOUTH THREE TIMES DAILY (MORNING, AFTERNOON, EVENING)*DO NOT CRUSH, CHEW, OR BREAK* For SUPPLEMENT 20 MEQ 06/11 Inactiv e 2023 57433 15038 5 3 times a day By Mouth False Aspirin 81 mg tablet,camron yed release [generic] TAKE ONE (1) TABLET BY MOUTH ONCE DAILY*DO NOT CRUSH, CHEW OR BREAK* For CAD 81 MG 12/22 Inactiv e 2023 08739 66719 0 Once daily By Mouth False Furosemide 20 mg tablet [generic] TAKE 1 AND 1/2 TABLETS (30MG) BY MOUTH ONCE DAILY For CHF 30mg 2023 Active 2023 55376 55374 1 Once daily By Mouth False Polyethylen e glycol 3350 17 gram/dose oral powder [generic] MIX 17 GRAMS (1 CAPFUL) IN 60Z OF LIQUID AND DRINK BY MOUTH ONCE DAILY *HOLD FOR LOOSE STOOLS* For constipation 17 g 2023 Active 2023 16776 53361 3 Once daily By Mouth False Vitamin D3 50 mcg (2,000 unit) capsule Once daily TAKE ONE (1) CAPSULE BY MOUTH DAILY* DO NOT CRUSH, CHEW OR BREAK* For Supplement 1 capsule 02/07 Inactiv e 2023 96660 04343 2 Once daily By Mouth False Fleet Enema 19 gram-7 gram/118 mL 1 Rectal Daily as neededFor Constipation 1 2023 0000 Active 2023 82508 35194 6 Daily as needed Rectal False Tums E-X 300 mg (as calcium carbonate 750 mg) chewable tablet 1 tab By Mouth TAKE (1) TABLET BY MOUTH THREE TIMES DAILY NEEDED FOR INDIGESTION 1 tab 202300 /0000 Active 2023 27397 13307 1 Three times daily as needed By Mouth False Tylenol 325 mg tablet 2 tabs By Mouth Every 4 hours as needed For Fever >100 DO NOT EXCEED 3000 MG APAP/24 Hours 2 tabs 202300 /0000 Active 2023 69719 56259 0 Every 4 hours as needed By Mouth False Vicks Vaporub 4.7 %-1.2 %-2.6 % topical ointment Apply topically to chest Three times daily as needed For CONGESTION topical 202300 Active 2023 69217 97565 1 Three times daily as needed Topica l False Tylenol 325 mg tablet 2 tabs By Mouth Every 4 hours as needed For DX- PAIN PRN FOR MILD PAIN, DO NOT EXCEED 3000MG APAP/24 HOURS 2 tabs 202300 Active 2023 91322 53498 0 Every 4 hours as needed By Mouth False Tramadol 50 mg tablet [generic] 1 tab By Mouth Every 4 hours as needed For DX- PAIN 5-10 1 tab 03/10 Inactiv e 2023 44800 24881 0 Every 4 hours as needed By Mouth False Saline Mist 0.65 % nasal spray aerosol 2 sprays Nares Four times daily as needed For DRYNESS 2 sprays 202300 / Active 2023 73229 39016 8 Four times daily as needed Nares False Dulcolax (bisacodyl) 10 mg rectal suppository Daily as needed For Constipation 1 sup 202300 / Active 2023 47233 47078 1 Daily as needed Rectal False Hydrocortis one-pramoxi ne 1 %-1 % rectal cream [generic] 1 mague Rectal Four times daily as needed For hemorroid pain 1 mague 202300 /0000 Active 2023 77768 55519 4 Four times daily as needed Rectal False Melatonin 3 mg tablet [generic] 1 tab By Mouth At bedtime as needed For INSOMNIA 1 tab 12/24 Inactiv e 2023 61173 51731 8 At bedtime as needed By Mouth False Milk of Magnesia 400 mg/5 mL oral suspension 30ml By Mouth Daily as needed Daily as needed for constipation one time daily if no BM, on day 4 of no BM (PRN refer to instructions) For Constipation For Constipatioin 30ml 2023 Active 2023 49290 19564 2 Daily as needed By Mouth False Baclofen 20 mg tablet [generic] 20 mg By Mouth 4 times a day For MUSCLE SPASMS 20 mg 2023 Active 2023 00535 70764 1 4 times a day By Mouth False Melatonin 3 mg tablet [generic] 1 tab By Mouth At bedtime as needed For INSOMNIA 1 tab 2023 Active 2023 55954 07357 8 At bedtime as needed By Mouth False Bactrim DS 800 mg-160 mg tablet 1 tab By Mouth Twice daily For URINARY TRACT INFECTION, SITE NOT SPECIFIED 1 tab 01/06 Inactiv e 2023 77779 82648 1 Twice daily By Mouth N39.0 False Cefdinir 300 mg capsule [generic] 300 mg By Mouth Twice daily For UTI 300 mg 01/07 Inactiv e 2023 25125 25683 0 Twice daily By Mouth False Cefdinir 300 mg capsule [generic] 300 mg By Mouth Twice daily For UTI 300 mg 01/17 Inactiv e 2023 15526 24756 0 Twice daily By Mouth False Zyrtec 10 mg tablet 10 mg By Mouth Once daily For sinus congestion 10 mg 01/22 Inactiv e 2023 86199 54216 0 Once daily By Mouth False Tobramycin 0.3 %-dexametha sone 0.1 % eye drops,suspe nsion [generic] 0.3-0.1 % Left Eye 4 times a day For eye infection 0.3-0.1 % 02/05 Inactiv e 2023 86745 29967 5 4 times a day Left Eye False Fluconazole 150 mg tablet [generic] 150 mg By Mouth 1 time For yeast infection 150 mg 02/15 Inactiv e 2023 20526 41513 2 1 time By Mouth False Tramadol 50 mg tablet [generic] 1 tab By Mouth Every 4 hours as needed For DX- PAIN 5-10 1 tab 2023 00/00 /0000 Active 2023 66174 27867 0 Every 4 hours as needed By Mouth False Tobramycin 0.3 %-dexametha sone 0.1 % eye drops,suspe nsion [generic] 1 drop Left Eye 4 times a day For Inflammation of left eye 1 drop 05/08 Inactiv e 2023 18340 31054 5 4 times a day Left Eye False Voltaren Arthritis Pain 1 % topical gel 2 gm Topical Twice daily to rigth shoulder for 2 weeks For pain 2 gm 05/08 Inactiv e 2023 63131 95579 1 Twice daily Topica l False Chlorthalid one 25 mg tablet [generic] 12.5mg By Mouth Once daily For HTN 12.5mg 05/06 Inactiv e 2023 41161 95609 0 Once daily By Mouth False Chlorthalid one 25 mg tablet [generic] 12.5mg By Mouth Once daily For HTN 12.5mg 05/07 Inactiv e 2023 63312 62341 0 Once daily By Mouth False Chlorthalid one 25 mg tablet [generic] 05/07 Inactiv e 2023 60376 83514 0 Chlorthalid one 25 mg tablet [generic] 12.5mg By Mouth Once daily For HTN 12.5mg 06/26 Inactiv e 2023 02881 36007 0 Once daily By Mouth False Norvasc 5 mg tablet 5mg By Mouth Once daily, hold medication if systolic is less than 90 For HYPERTENSIVE HEART DISEASE WITHOUT HEART FAILURE 5mg 06/03 Inactiv e 2023 89575 90315 1 Once daily By Mouth I11.9 False Norvasc 5 mg tablet 5mg By Mouth Once daily, hold medication if systolic is less than 90 For HYPERTENSIVE HEART DISEASE WITHOUT HEART FAILURE 5mg 06/03 Inactiv e 2023 11481 18251 1 Once daily By Mouth I11.9 False Norvasc 5 mg tablet 5mg By Mouth Once daily, hold medication if systolic is less than 90 For HYPERTENSIVE HEART DISEASE WITHOUT HEART FAILURE 5mg 06/26 Inactiv e 2023 58016 46711 1 Once daily By Mouth I11.9 False [...] 10 mg 2023 00/00 /0000 Active 2023 27291 32873 1 Once daily By Mouth False DISCONTINUE [...] CAD 81 mg 06/14 Inactiv e 2023 27324 74806 9 Once daily By Mouth False Aspirin 81 mg tablet,camron yed release [generic] 06/14 Inactiv e 2023 43203 41035 9 Aspirin 81 mg tablet,camron yed release [generic] 81 mg By Mouth Once daily Do not crush, chew, or break For CAD 81 mg 06/154 Inactiv e 2023 46598 03227 9 Once daily By Mouth False Cefpodoxime 200 mg tablet [generic] 200mg By Mouth Twice daily For UTI 200mg 07/04 Inactiv e 2023 84902 33239 0 Twice daily By Mouth False Calcium citrate 250 mg tablet [generic] 06/26 Inactiv e 2023 42654 53175 6 Calcium citrate 250 mg tablet [generic] Once daily TAKE 4 TABLETS (1000MG) BY MOUTH For SUPPLEMENT 500 MG 2023 Active 2023 22227 11817 6 Once daily By Mouth False Norvasc 5 mg tablet 7.5 mg By Mouth Once daily Hold medication if SBP <90 For HYPERTENSIVE HEART DISEASE WITHOUT HEART FAILURE 7.5 mg 06/30 Inactiv e 2023 34686 89950 1 Once daily By Mouth I11.9 False Norvasc 5 mg tablet 7.5 mg By Mouth Once daily Hold medication if SBP <90 For HYPERTENSIVE HEART DISEASE WITHOUT HEART FAILURE 7.5 mg 07/06 Inactiv e 2023 92861 57723 1 Once daily By Mouth I11.9 False Simethicone 125 mg capsule [generic] 2 capule By Mouth Twice daily as needed For bloating/gas pain 2 capule 2023 Active 2023 45500 56389 0 Twice daily as needed By Mouth False Cepacol Sore Throat (benzocaine -menthol) 15 mg-2.6 mg lozenges 2 lozenges By Mouth Every 6 hours as needed For sore throat 2 lozenge s 2023 Active 2023 47221 55078 6 Every 6 hours as needed By Mouth False Cefepime 1 gram solution for injection [generic] 1g Intramuscular Every 12 hours 1g intramuscular ly ever 12 hours For UTI 1g 07/06 Inactiv e 2023 06509 36017 4 Every 12 hours Intram uscula r False Cefepime 1 gram solution for injection [generic] 07/06 Inactiv e 2023 69350 09596 4 Cefepime 1 gram solution for injection [generic] 1g Intramuscular Every 12 hours 1g intramuscular ly ever 12 hours For UTI Reconstitute with 2.4 ML of NSS. 1g 07/08 Inactiv e 2023 18739 45020 4 Every 12 hours Intram uscula r False Norvasc 5 mg tablet 07/06 Inactiv e 2023 07833 77292 1 I11.9 Norvasc 5 mg tablet 7.5 mg By Mouth Once daily Hold medication if SBP <90 For HYPERTENSIVE HEART DISEASE WITHOUT HEART FAILURE 7.5 mg 2023 00 /0000 Active 2023 29401 71776 1 Once daily By Mouth I11.9 False Cefepime 1 gram solution for injection [generic] 07/08 Inactiv e 2023 80040 90719 4 Cefepime 1 gram solution for injection [generic] 1g Intramuscular Every 12 hours 1g intramuscular ly ever 12 hours For UTI Reconstitute with 2.4 ML of NSS. 1g 07/08 Inactiv e 2023 92448 16630 4 Every 12 hours Intram uscula r False Cefepime 1 gram solution for injection [generic] 07/08 Inactiv e 2023 55027 98242 4 Cefepime 1 gram solution for injection [generic] 1g Intramuscular Every 12 hours 1g intramuscular ly ever 12 hours For UTI Reconstitute with 2.4 ML of NSS. 1g 07/11 Inactiv e 2023 91134 82963 4 Every 12 hours Intram uscula r False Fleet Enema 19 gram-7 gram/118 mL 1 Rectal 1 time For constipation 1 07/16 Active 2024 49819 61542 6 1 time Rectal False Nystatin 100,000 unit/gram topical cream [generic] 100,000 unit Topical As Needed For DX- EXCORIATION 100,000 unit 12/12 Inactiv e 2023 72562 33896 5 Topica l False Vicks Vaporub 4.7 %-1.2 %-2.6 % topical ointment 4.7-1.2-2.6 Topical 3 times a day As Needed For DX- CONGESTION 4.7-1.2 -2.6 12/12 Inactiv e 2023 23479 99401 1 3 times a day Topica l False Ketoconazol e 2 % shampoo [generic] APPLY SHAMPOO TOPICALLY TO SCALP DURING HAIR WASHINGDX: ELVIA DERM OF SCALP For DX- ELVIA DERM OF SCALP 12/12 Inactiv e 2023 24902 10716 4 Topica l False THERA SILICONE SKIN GUARD Topical Twice daily 1 APPLICATION TOPICALLY IN THE MORNING AND AT BEDTIME TO SCROTUM For DX- PREVENTION 2023 0000 Active 2023 Twice daily Topica l False Selenium sulfide 2.5 % lotion [generic] 2.5 % Topical EVERY MONDAY, MONDAY AND MONDAY AFTER SHOWER For DANDRUFF 2.5 % 2023 00/00 /0000 Active 2023 95983 53117 4 3 times a week Topica l False Nystatin (bulk) 100 million unit powder [generic] 100 million Topical Twice daily as needed For EXOCORATION 100 million 12/20 Inactiv e 2023 78344 94995 1 Twice daily as needed Topica l False Ketoconazol e 2 % shampoo [generic] Once daily APPLY SHAMPOO TOPICALLY TO SCALP DURING HAIR WASHING ON SHOWER DAYS- , , MON For ELVIA DERM OF SCAP 2 % 2023 0000 /0000 Active 2023 96750 90064 4 Once daily Topica l False Nystatin 100,000 unit/gram topical cream [generic] 1 mague Topical Twice daily as needed For EXOCORATION 1 mague 06/05 Inactiv e 2023 17112 63279 5 Twice daily as needed Topica l False Nystatin 100,000 unit/gram topical powder [generic] 100,000 unit Topical Twice daily to scrotum with AM and PM care For Scrotal excoriation 100,000 unit 06/05 Inactiv e 2023 55507 32080 5 Twice daily Topica l False Problems [...] weight Temperature SpO2 Blood Sugar Pulse Respirations 04577 208 41091 9 82.00 mm[Hg] - Sitting 128.00 mm[Hg] - Sitting 87884 209 61755 2 78.00 mm[Hg] - Sitting 130.00 mm[Hg] - Sitting 72032 210 12395 6 80.00 mm[Hg] - Sitting 132.00 mm[Hg] - Sitting 22403 211 95321 5 78.00 mm[Hg] - Sitting 125.00 mm[Hg] - Sitting 37907 216 52385 1 254.10 NI 61334 216 63661 2 79.00 mm[Hg] - Sitting 157.00 mm[Hg] - Sitting 73 NI 254.10 NI 36.30 Tympanic 95.00 % 72.00/ min 16.00/min 02762 216 98722 4 98.80 Tympanic 21586 216 09764 2 78.00 mm[Hg] - Sitting 164.00 mm[Hg] - Sitting 53906 217 69666 3 98.20 Tympanic 57132 217 93902 5 73.00 mm[Hg] - Sitting 159.00 mm[Hg] - Sitting 68155 217 86561 9 98.40 Forehead Scan 64836 218 53099 3 97.90 Tympanic 62999 218 40707 5 77.00 mm[Hg] - Sitting 137.00 mm[Hg] - Sitting 47595 219 93261 0 97.70 Tympanic 07452 219 04528 6 97.60 Tympanic 95968 219 72421 4 76.00 mm[Hg] - Sitting 139.00 mm[Hg] - Sitting 18607 219 93447 4 97.80 Forehead Scan 43815 220 82863 9 97.90 Tympanic 59015 220 06827 9 76.00 mm[Hg] - Sitting 138.00 mm[Hg] - Sitting 13371 220 87218 6 98.10 Tympanic 51697 221 74859 5 67.00 mm[Hg] - Sitting 142.00 mm[Hg] - Sitting 18774 221 82065 8 98.20 Tympanic 19371 221 81229 0 98.30 Tympanic 94518 222 25091 7 98.20 Tympanic 55895 222 34065 8 97.90 Tympanic 34902 223 90307 3 98.20 Tympanic 95464 223 79791 3 98.00 Tympanic 16079 224 84765 0 59.00 mm[Hg] - Sitting 111.00 mm[Hg] - Sitting 98.40 Forehead Scan 95.00 % 56.00/ min 18.00/min 43592 224 10892 9 98.20 Forehead Scan 07053 224 46296 3 97.90 Tympanic 20804 225 82946 4 98.20 Tympanic 23661 225 78832 8 97.50 Forehead Scan 00051 228 57565 0 55.00 mm[Hg] - Sitting 118.00 mm[Hg] - Sitting 98.40 Tympanic 69.00/ min 09011 229 48171 8 78.00 mm[Hg] - Sitting 152.00 mm[Hg] - Sitting 08237 230 63818 0 62.00 mm[Hg] - Sitting 122.00 mm[Hg] - Sitting 80787 231 72939 7 72.00 mm[Hg] - Lying Down 140.00 mm[Hg] - Lying Down 49560 101 71627 3 97.70 Forehead Scan 73837 101 17046 1 254.10 NI 69.00/ min 66050 101 25360 9 72.00 mm[Hg] - Sitting 142.00 mm[Hg] - Sitting 97.70 Tympanic 18.00/min 90257 101 90634 3 72.00 mm[Hg] - Lying Down 142.00 mm[Hg] - Lying Down 14356 102 92572 8 68.00 mm[Hg] - Lying Down 152.00 mm[Hg] - Lying Down 16174 103 59147 5 74.00 mm[Hg] - Sitting 158.00 mm[Hg] - Sitting 70283 104 68826 9 78.00 mm[Hg] - Sitting 144.00 mm[Hg] - Sitting 21569 105 89543 5 68.00 mm[Hg] - Sitting 138.00 mm[Hg] - Sitting 36649 106 15858 1 70.00 mm[Hg] - Sitting 138.00 mm[Hg] [...]
--- OUTSIDE RECORDS SUMMARY | 2024-07-26 11:21 | External Medical Summary | Continuity Of Care Document ---
Author Name Unknown Address [address] [place] [address] Organization [facility] () Care Team Providers Care Mica Laminating Machine Feeder Name Role Phone DO Pritchett Amy Primary Care Provider [phone] Allergies Allergy Reaction Start Date End Date Status AMINOGLYCOSIDES Active CIPRO Active GENTAMICIN Active NSAIDS (NON-STEROIDAL ANTI-INFLAMMATORY DRUG) 0 Active IBUPROFEN Active QUINOLONES Active VALIUM Active Medications Medication Instructions Dosage Start Date End Date Status Order Date Drug Code Frequency Route of Admin Diagnosis Code Substitutions Allowed Spikevax 7791-0640(1 2y up)(PF) 50 mcg/0.5 mL intramuscul ar suspension [COVID [id number](12 up)(andu)(P F)] 0.5mL Intramuscular 1 time Monitory 15 Minutes post injection for adverse effects; record site/temp For COVID 19 PREVENTION 0.5mL 01/02 Inactiv e 2023 98727 96095 4 1 time Intram uscula r False [facility] - Nurse initials indicate verificatio n that [id number] vaccine was administere d by [facility] Represent[facility] jon 1 Intramuscular 1 time ( Indicate vaccine type) For vaccine 1 05/03 Inactiv e 2023 1 time Intram uscula r False Lisinopril 40 mg tablet [generic] TAKE ONE (1) TABLET BY MOUTH IN THE MORNING. For DX- HTN 1 2023 Active 2023 92895 89606 1 Once daily By Mouth False Tizanidine 2 mg tablet [generic] TAKE ONE (1) TABLET BY MOUTH ONCE DAILY For MUSCLE SPASM 1 2023 Active 2023 56119 36023 0 Once daily By Mouth M62.838 False Tamsulosin 0.4 mg capsule [generic] TAKE (1) CAPSULE BY MOUTH AT BEDTIME For SPASMS 1 2023 Active 2023 70828 31298 0 Once daily By Mouth False Aspirin 81 mg tablet Once daily 1 TABLET BY MOUTH IN THE MORNING For DX- CAD DO NOT CRUSH, CHEW OR BREAK 81 mg 06/12 Inactiv e 2023 Once daily By Mouth False Baclofen 20 mg tablet [generic] 20 mg By Mouth 4 times a day For DX- MUSCLE SPASMS 20 mg 12/12 Inactiv e 2023 12004 48455 1 4 times a day By Mouth False Calcium citrate 250 mg tablet Once daily 4 TABLET BY MOUTH For DX- SUPPLEMENT 250 mg calci 12/12 Inactiv e 2023 Once daily By Mouth False Co Q-10 100 mg capsule 100 mg By Mouth Once daily For DX- SUPPLEMENT 100 mg 06/20 Inactiv e 2023 72886 41883 5 Once daily By Mouth False Furosemide 20 mg tablet [generic] 20 mg By Mouth Once daily For DX-CHF 20 mg 12/12 Inactiv e 2023 60387 40937 0 Once daily By Mouth False Gabapentin 300 mg capsule [generic] 300 mg By Mouth 3 times a day For DX- NEUROPATHY 300 mg 12/12 Inactiv e 2023 05836 07365 4 3 times a day By Mouth False Loratadine 10 mg tablet [generic] 10 mg By Mouth Once daily For DX- ALLERGIES 10 mg 2023 Active 2023 65299 48809 1 Once daily By Mouth False Miralax 17 gram/dose oral powder 17 gram/dose By Mouth IN THE MORNING Mix 1 TABLESPOON IN 8 OZ OF FLUID HOLD FOR LOOSE STOOLS For DX- CONSTIPATION 17 gram/do se 12/12 Inactiv e 2023 13904 37293 0 Once daily By Mouth False Paroxetine 30 mg tablet [generic] 30 mg By Mouth Once daily For DX- DEPRESSION 30 mg 2023 00/00 /0000 Active 2023 21012 16769 3 Once daily By Mouth False Potassium citrate ER 15 mEq (1,620 mg) tablet,exte nded release [generic] 15 mEq By Mouth 3 times a day For DX- SUPPLEMENT/DI URETIC USE/ HYPOCITRAUIRA DO NOT CRUSH 15 mEq 12/12 Inactiv e 2023 19867 91712 1 3 times a day By Mouth [...] For DX- DANDRUFF 12/12 Inactiv e 2023 21612 54568 4 3 times a week Topica l False Acetaminoph en 325 mg tablet [generic] TAKE 2 TABS (650MG) BY MOUTH EVERY 4 HOURS NEEDED FOR TEMP >100 NOT TO EXCEED 3GM/24HRS TAKE 2 TABS (650MG) BY MOUTH EVERY 4 HOURS NEEDED FOR TEMP >100 NOT TO EXCEED 3GM/24HRS For DX-FEVER 2 12/12 Inactiv e 2023 84288 78791 0 By Mouth False MILK OF MAGNESIA ADMINISTER 30 ML BY MOUTH ONCE DAILY NEEDED FOR CONSTIPATION X3 DAYS WITH NO BM. For DX- CONSTIPATION 30ML 12/12 Inactiv e 2023 11618 69431 9 By Mouth False Enema Disposable 19 gram-7 gram/118 mL ADMINISTER ONE ENEMA RECTALLY ONCE DAILY NEEDED FOR CONSTIPATION ON DAY 6 OF NO BM For DX- CONSTIPATION 12/12 Inactiv e 2023 27897 79729 1 Rectal False TUMS EXTRA STR 750MG TAKE (1) TABLET BY MOUTH THREE TIMES DAILY NEEDED FOR INDIGESTION For DX- INDIGESTION 1 12/12 Inactiv e 2023 36482 98587 8 By Mouth False Vitamin D3 25 [...] CONSTIPATION 10 mg 12/12 Inactiv e 2023 40880 35352 1 Rectal False Melatonin 3 mg tablet [generic] 3 mg By Mouth As Needed For DX-INSOMMIA 3 mg 12/12 Inactiv e 2023 09804 24116 8 By Mouth False Hydrocortis one 1 % topical cream [generic] 1 % Topical As Needed For DX- PAIN 1 % 12/12 Inactiv e 2023 48612 86850 1 Topica l False HYDROCORTIS ONE/PARMOXI NE [...] 5-10 50 mg 12/20 Inactiv e 2023 34332 07768 0 Every 4 hours as needed By Mouth False Tylenol 325 mg tablet 325 mg By Mouth Every 4 hours as needed For DX- PAIN PRN FOR MILD PAIN, DO NOT EXCEED 3000MG APAP/24 HOURS 325 mg 12/20 Inactiv e 2023 89921 55043 0 Every 4 hours as needed By Mouth False Baclofen 20 mg tablet [generic] 20 mg By Mouth 4 times a day For MUSCLE SPASMS 20 mg 12/20 Inactiv e 2023 10276 90347 1 4 times a day By Mouth False Calcium citrate 250 mg tablet [generic] Once daily TAKE 4 TABLETS (1000MG) BY MOUTH For SUPPLEMENT 1000 MG 06/26 Inactiv e 2023 98578 40397 6 Once daily By Mouth False Dulcolax (bisacodyl) 10 mg rectal suppository 10 mg Rectal Once daily For CONSTIPATION *MAY HOLD FOR LOOSE STOOLS* 10 mg 2023 Active 2023 01959 50351 1 Once daily Rectal False Gabapentin 300 mg capsule [generic] 300 mg By Mouth 3 times a day For NEUROPATHY 300 mg 2023 Active 2023 56037 58236 4 3 times a day By Mouth False Potassium citrate ER 15 mEq (1,620 mg) tablet,exte nded release [generic] 15 mEq By Mouth 3 times a day For SUPPLEMENT/DI URETIC USE/HYPOCITRA URIA 15 mEq 06/11 Inactiv e 2023 99122 77539 1 3 times a day By Mouth False Potassium chloride ER 20 mEq tablet,exte nded release [generic] 20 mEq By Mouth 3 times a day *DO NOT CRUSH, CHEW OR BREAK* For SUPPLEMENT 20 mEq 12/18 Inactiv e 2023 18284 04123 1 3 times a day By Mouth False Tizanidine 4 mg tablet [generic] 4 mg By Mouth Once daily For MUSCLE SPASMS 4 mg 2023 Active 2023 89338 75791 0 Once daily By Mouth False Tylenol 325 mg tablet 2 tabs By Mouth Every 4 hours as needed For Fever >100 DO NOT EXCEED 3000 MG APAP/24 Hours 2 tabs 12/20 Inactiv e 2023 89012 87139 0 Every 4 hours as needed By Mouth False Dulcolax (bisacodyl) 10 mg rectal suppository Daily as needed For Constipation 1 sup 12/20 Inactiv e 2023 58092 53781 1 Daily as needed Rectal False Fleet Enema 19 gram-7 gram/118 mL 1 Rectal Daily as neededFor Constipation 1 12/20 Inactiv e 2023 27179 50590 6 Daily as needed Rectal False Problems [...] weight Temperature SpO2 Blood Sugar Pulse Respirations 206 9 76.00 mm[Hg] - Sitting 132.00 mm[Hg] - Sitting 00517 208 24707 9 82.00 mm[Hg] - Sitting 128.00 mm[Hg] - Sitting 58180 209 11906 2 78.00 mm[Hg] - Sitting 130.00 mm[Hg] - Sitting 68063 210 52783 6 80.00 mm[Hg] - Sitting 132.00 mm[Hg] - Sitting 55024 211 48571 5 78.00 mm[Hg] - Sitting 125.00 mm[Hg] - Sitting 03037 216 19057 1 254.10 [place] [address] 216 45818 2 79.00 mm[Hg] - Sitting 157.00 mm[Hg] - Sitting 73 NI 254.10 NI 36.30 Tympanic 95.00 % 72.00/ min 16.00/min 77837 216 35746 4 98.80 Tympanic 92767 216 58959 2 78.00 mm[Hg] - Sitting 164.00 mm[Hg] - Sitting 71943 217 36770 3 98.20 Tympanic 66632 217 20421 5 73.00 mm[Hg] - Sitting 159.00 mm[Hg] - Sitting 89225 217 50182 9 98.40 Forehead Scan 91604 218 44760 3 97.90 Tympanic 91701 218 88280 5 77.00 mm[Hg] - Sitting 137.00 mm[Hg] - Sitting 23281 219 58965 0 97.70 Tympanic 29373 219 59878 6 97.60 Tympanic 55282 219 51773 4 76.00 mm[Hg] - Sitting 139.00 mm[Hg] - Sitting 16949 219 99239 4 97.80 Forehead Scan 61167 220 49195 9 97.90 Tympanic 95121 220 59201 9 76.00 mm[Hg] - Sitting 138.00 mm[Hg] - Sitting 39434 220 77966 6 98.10 Tympanic 92981 221 29211 5 67.00 mm[Hg] - Sitting 142.00 mm[Hg] - Sitting 31858 221 63855 8 98.20 Tympanic 53908 221 82432 0 98.30 Tympanic 11623 222 72979 7 98.20 Tympanic 31837 222 20997 8 97.90 Tympanic 95108 223 54692 3 98.20 Tympanic 52222 223 29382 3 98.00 Tympanic 57509 224 10446 0 59.00 mm[Hg] - Sitting 111.00 mm[Hg] - Sitting 98.40 Forehead Scan 95.00 % 56.00/ min 18.00/min 20703 224 43017 9 98.20 Forehead Scan 98187 224 54719 3 97.90 Tympanic 07728 225 59317 4 98.20 Tympanic 32622 225 59947 8 97.50 Forehead Scan 32380 228 53690 0 55.00 mm[Hg] - Sitting 118.00 mm[Hg] - Sitting 98.40 Tympanic 69.00/ min 13818 229 75365 8 78.00 mm[Hg] - Sitting 152.00 mm[Hg] - Sitting 83276 230 46693 0 62.00 mm[Hg] - Sitting 122.00 mm[Hg] - Sitting 28937 231 02238 7 72.00 mm[Hg] - Lying Down 140.00 mm[Hg] - Lying Down 55638 101 03564 3 97.70 Forehead Scan 87058 101 58455 1 254.10 NI 69.00/ min 60558 101 64357 9 72.00 mm[Hg] - Sitting 142.00 mm[Hg] - Sitting 97.70 Tympanic 18.00/min 88294 101 28670 3 72.00 mm[Hg] - Lying Down 142.00 mm[Hg] - Lying Down 84861 102 55691 8 68.00 mm[Hg] - Lying Down 152.00 mm[Hg] - Lying Down 99596 103 88941 5 74.00 mm[Hg] - Sitting 158.00 mm[Hg] - Sitting 22676 104 87940 9 78.00 mm[Hg] - Sitting 144.00 mm[Hg] - Sitting Immunizations Vaccine Date Status [...]
--- OUTSIDE RECORDS SUMMARY | 2024-07-26 11:21 | External Medical Summary | Continuity Of Care Document ---
Author Name Unknown Address [address] [address] Organization [facility] () Care Team Providers Care Bioinformatics Support Specialist Name Role Phone DO Pritchett Amy Primary Care Provider [phone] Allergies Allergy Reaction Start Date End Date Status AMINOGLYCOSIDES Active CIPRO Active GENTAMICIN Active NSAIDS (NON-STEROIDAL ANTI-INFLAMMATORY DRUG) 0 Active IBUPROFEN Active QUINOLONES Active VALIUM Active Medications Medication Instructions Dosage Start Date End Date Status Order Date Drug Code Frequency Route of Admin Diagnosis Code Substitutions Allowed Spikevax 5043-0575(1 2y up)(PF) 50 mcg/0.5 mL intramuscul ar suspension [COVID cwx29-97(12 up)(andu)(P F)] 0.5mL Intramuscular 1 time Monitory 15 Minutes post injection for adverse effects; record site/temp For COVID 19 PREVENTION 0.5mL 01/02 Inactiv e 2023 18156 99864 4 1 time Intram uscula r False [facility] - Nurse initials indicate verificatio n that [id number] vaccine was administere d by [facility] Represent[facility] jon 1 Intramuscular 1 time ( Indicate vaccine type) For vaccine 1 05/03 Inactiv e 2023 1 time Intram uscula r False Lisinopril 40 mg tablet [generic] TAKE ONE (1) TABLET BY MOUTH IN THE MORNING. For DX- HTN 1 2023 Active 2023 42985 46656 1 Once daily By Mouth False Tizanidine 2 mg tablet [generic] TAKE ONE (1) TABLET BY MOUTH ONCE DAILY For MUSCLE SPASM 1 2023 Active 2023 85876 57779 0 Once daily By Mouth M62.838 False Tamsulosin 0.4 mg capsule [generic] TAKE (1) CAPSULE BY MOUTH AT BEDTIME For SPASMS 1 2023 Active 2023 95938 11869 0 Once daily By Mouth False Aspirin 81 mg tablet Once daily 1 TABLET BY MOUTH IN THE MORNING For DX- CAD DO NOT CRUSH, CHEW OR BREAK 81 mg 06/12 Inactiv e 2023 Once daily By Mouth False Baclofen 20 mg tablet [generic] 20 mg By Mouth 4 times a day For DX- MUSCLE SPASMS 20 mg 12/12 Inactiv e 2023 29254 78681 1 4 times a day By Mouth False Calcium citrate 250 mg tablet Once daily 4 TABLET BY MOUTH For DX- SUPPLEMENT 250 mg calci 12/12 Inactiv e 2023 Once daily By Mouth False Co Q-10 100 mg capsule 100 mg By Mouth Once daily For DX- SUPPLEMENT 100 mg 06/20 Inactiv e 2023 15146 39655 5 Once daily By Mouth False Furosemide 20 mg tablet [generic] 20 mg By Mouth Once daily For DX-CHF 20 mg 12/12 Inactiv e 2023 35395 49564 0 Once daily By Mouth False Gabapentin 300 mg capsule [generic] 300 mg By Mouth 3 times a day For DX- NEUROPATHY 300 mg 12/12 Inactiv e 2023 68362 36958 4 3 times a day By Mouth False Loratadine 10 mg tablet [generic] 10 mg By Mouth Once daily For DX- ALLERGIES 10 mg 2023 Active 2023 21431 34977 1 Once daily By Mouth False Miralax 17 gram/dose oral powder 17 gram/dose By Mouth IN THE MORNING Mix 1 TABLESPOON IN 8 OZ OF FLUID HOLD FOR LOOSE STOOLS For DX- CONSTIPATION 17 gram/do se 12/12 Inactiv e 2023 43007 60074 0 Once daily By Mouth False Paroxetine 30 mg tablet [generic] 30 mg By Mouth Once daily For DX- DEPRESSION 30 mg 2023 00/00 /0000 Active 2023 17005 73962 3 Once daily By Mouth False Potassium citrate ER 15 mEq (1,620 mg) tablet,exte nded release [generic] 15 mEq By Mouth 3 times a day For DX- SUPPLEMENT/DI URETIC USE/ HYPOCITRAUIRA DO NOT CRUSH 15 mEq 12/12 Inactiv e 2023 77430 73612 1 3 times a day By Mouth [...] For DX- DANDRUFF 12/12 Inactiv e 2023 99243 50083 4 3 times a week Topica l False Acetaminoph en 325 mg tablet [generic] TAKE 2 TABS (650MG) BY MOUTH EVERY 4 HOURS NEEDED FOR TEMP >100 NOT TO EXCEED 3GM/24HRS TAKE 2 TABS (650MG) BY MOUTH EVERY 4 HOURS NEEDED FOR TEMP >100 NOT TO EXCEED 3GM/24HRS For DX-FEVER 2 12/12 Inactiv e 2023 17078 72980 0 By Mouth False MILK OF MAGNESIA ADMINISTER 30 ML BY MOUTH ONCE DAILY NEEDED FOR CONSTIPATION X3 DAYS WITH NO BM. For DX- CONSTIPATION 30ML 12/12 Inactiv e 2023 01954 70376 9 By Mouth False Enema Disposable 19 gram-7 gram/118 mL ADMINISTER ONE ENEMA RECTALLY ONCE DAILY NEEDED FOR CONSTIPATION ON DAY 6 OF NO BM For DX- CONSTIPATION 12/12 Inactiv e 2023 03751 35155 1 Rectal False TUMS EXTRA STR 750MG TAKE (1) TABLET BY MOUTH THREE TIMES DAILY NEEDED FOR INDIGESTION For DX- INDIGESTION 1 12/12 Inactiv e 2023 75029 41269 8 By Mouth False Vitamin D3 25 [...] CONSTIPATION 10 mg 12/12 Inactiv e 2023 24518 11660 1 Rectal False Melatonin 3 mg tablet [generic] 3 mg By Mouth As Needed For DX-INSOMMIA 3 mg 12/12 Inactiv e 2023 42266 89180 8 By Mouth False Hydrocortis one 1 % topical cream [generic] 1 % Topical As Needed For DX- PAIN 1 % 12/12 Inactiv e 2023 28334 03360 1 Topica l False HYDROCORTIS ONE/PARMOXI NE [...] 5-10 50 mg 12/20 Inactiv e 2023 84084 34307 0 Every 4 hours as needed By Mouth False Tylenol 325 mg tablet 325 mg By Mouth Every 4 hours as needed For DX- PAIN PRN FOR MILD PAIN, DO NOT EXCEED 3000MG APAP/24 HOURS 325 mg 12/20 Inactiv e 2023 98302 60720 0 Every 4 hours as needed By Mouth False Baclofen 20 mg tablet [generic] 20 mg By Mouth 4 times a day For MUSCLE SPASMS 20 mg 12/20 Inactiv e 2023 09278 94143 1 4 times a day By Mouth False Calcium citrate 250 mg tablet [generic] Once daily TAKE 4 TABLETS (1000MG) BY MOUTH For SUPPLEMENT 1000 MG 06/26 Inactiv e 2023 73177 15516 6 Once daily By Mouth False Dulcolax (bisacodyl) 10 mg rectal suppository 10 mg Rectal Once daily For CONSTIPATION *MAY HOLD FOR LOOSE STOOLS* 10 mg 2023 Active 2023 81204 68609 1 Once daily Rectal False Gabapentin 300 mg capsule [generic] 300 mg By Mouth 3 times a day For NEUROPATHY 300 mg 2023 Active 2023 82292 48883 4 3 times a day By Mouth False Potassium citrate ER 15 mEq (1,620 mg) tablet,exte nded release [generic] 15 mEq By Mouth 3 times a day For SUPPLEMENT/DI URETIC USE/HYPOCITRA URIA 15 mEq 06/11 Inactiv e 2023 14524 69527 1 3 times a day By Mouth False Potassium chloride ER 20 mEq tablet,exte nded release [generic] 20 mEq By Mouth 3 times a day *DO NOT CRUSH, CHEW OR BREAK* For SUPPLEMENT 20 mEq 12/18 Inactiv e 2023 23904 30213 1 3 times a day By Mouth False Tizanidine 4 mg tablet [generic] 4 mg By Mouth Once daily For MUSCLE SPASMS 4 mg 2023 Active 2023 12599 59604 0 Once daily By Mouth False Tylenol 325 mg tablet 2 tabs By Mouth Every 4 hours as needed For Fever >100 DO NOT EXCEED 3000 MG APAP/24 Hours 2 tabs 12/20 Inactiv e 2023 90458 15361 0 Every 4 hours as needed By Mouth False Dulcolax (bisacodyl) 10 mg rectal suppository Daily as needed For Constipation 1 sup 12/20 Inactiv e 2023 11858 23735 1 Daily as needed Rectal False Fleet Enema 19 gram-7 gram/118 mL 1 Rectal Daily as neededFor Constipation 1 12/20 Inactiv e 2023 38122 83162 6 Daily as needed Rectal False Milk of Magnesia 400 mg/5 mL oral suspension [Magnesium hydroxide] PRN 30ml By Mouth Daily as needed for constipation one time daily if no BM, on day 4 of no BM (PRN refer to instructions) For Constipation For Constipatioin 30ml 12/20 Inactiv e 2023 91007 11796 6 1 time By Mouth False Melatonin 3 mg tablet [generic] 3 mg By Mouth Once daily As Needed For INSOMNIA 3 mg 12/20 Inactiv e 2023 12723 52699 8 Once daily By Mouth False Problems [...] weight Temperature SpO2 Blood Sugar Pulse Respirations 205 15800 4 85.00 mm[Hg] - Sitting 142.00 mm[Hg] - Sitting 54535 206 21735 9 76.00 mm[Hg] - Sitting 132.00 mm[Hg] - Sitting 36388 208 50677 9 82.00 mm[Hg] - Sitting 128.00 mm[Hg] - Sitting 32815 209 81300 2 78.00 mm[Hg] - Sitting 130.00 mm[Hg] - Sitting 58783 210 85872 6 80.00 mm[Hg] - Sitting 132.00 mm[Hg] - Sitting 27520 211 47271 5 78.00 mm[Hg] - Sitting 125.00 mm[Hg] - Sitting 72858 216 50218 1 254[place]10 [place] [address] 216 41503 2 79.00 mm[Hg] - Sitting 157.00 mm[Hg] - Sitting 73 NI 254.10 NI 36.30 Tympanic 95.00 % 72.00/ min 16.00/min 55002 216 42345 4 98.80 Tympanic 20272 216 46151 2 78.00 mm[Hg] - Sitting 164.00 mm[Hg] - Sitting 67652 217 13259 3 98.20 Tympanic 03039 217 45576 5 73.00 mm[Hg] - Sitting 159.00 mm[Hg] - Sitting 94201 217 18292 9 98.40 Forehead Scan 79410 218 65903 3 97.90 Tympanic 03285 218 68596 5 77.00 mm[Hg] - Sitting 137.00 mm[Hg] - Sitting 78027 219 80717 0 97.70 Tympanic 04447 219 43281 6 97.60 Tympanic 79417 219 56085 4 76.00 mm[Hg] - Sitting 139.00 mm[Hg] - Sitting 74833 219 59809 4 97.80 Forehead Scan 98396 220 82638 9 97.90 Tympanic 57783 220 31348 9 76.00 mm[Hg] - Sitting 138.00 mm[Hg] - Sitting 48511 220 30033 6 98.10 Tympanic 42679 221 44236 5 67.00 mm[Hg] - Sitting 142.00 mm[Hg] - Sitting 66636 221 30315 8 98.20 Tympanic 09785 221 23868 0 98.30 Tympanic 68865 222 78881 7 98.20 Tympanic 67961 222 01429 8 97.90 Tympanic 16311 223 21266 3 98.20 Tympanic 98337 223 11279 3 98.00 Tympanic 18112 224 03333 0 59.00 mm[Hg] - Sitting 111.00 mm[Hg] - Sitting 98.40 Forehead Scan 95.00 % 56.00/ min 18.00/min 35340 224 56717 9 98.20 Forehead Scan 80248 224 96925 3 97.90 Tympanic 93714 225 97471 4 98.20 Tympanic 58124 225 04799 8 97.50 Forehead Scan 19252 228 12420 0 55.00 mm[Hg] - Sitting 118.00 mm[Hg] - Sitting 98.40 Tympanic 69.00/ min 51823 229 48346 8 78.00 mm[Hg] - Sitting 152.00 mm[Hg] - Sitting 95366 230 04222 0 62.00 mm[Hg] - Sitting 122.00 mm[Hg] - Sitting 56777 231 07774 7 72.00 mm[Hg] - Lying Down 140.00 mm[Hg] - Lying Down 28183 101 70982 3 97.70 Forehead Scan 99309 101 00855 1 254.10 NI 69.00/ min 29157 101 11029 9 72.00 mm[Hg] - Sitting 142.00 mm[Hg] - Sitting 97.70 Tympanic 18.00/min 32268 101 02704 3 72.00 mm[Hg] - Lying Down 142.00 mm[Hg] - Lying Down 81234 102 31716 8 68.00 mm[Hg] - Lying Down 152.00 mm[Hg] - Lying Down 58031 103 43550 5 74.00 mm[Hg] - Sitting 158.00 mm[Hg] - Sitting 23464 104 50223 9 78.00 mm[Hg] - Sitting 144.00 mm[Hg] [...]
--- OUTSIDE RECORDS SUMMARY | 2024-07-26 11:21 | External Medical Summary | Continuity Of Care Document ---
Author Name Unknown Address [address] [address] 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 Name Role Phone DO Pritchett Amy Primary Care Provider [phone] Allergies Allergy Reaction Start Date End Date Status AMINOGLYCOSIDES Active CIPRO Active GENTAMICIN Active NSAIDS (NON-STEROIDAL ANTI-INFLAMMATORY DRUG) 0 Active IBUPROFEN Active QUINOLONES Active VALIUM Active Medications Medication Instructions Dosage Start Date End Date Status Order Date Drug Code Frequency Route of Admin Diagnosis Code Substitutions Allowed Spikevax [id number](1 2y up)(PF) 50 mcg/0.5 mL intramuscul ar suspension [COVID [id number](12 up)(andu)(P F)] 0.5mL Intramuscular 1 time Monitory 15 Minutes post injection for adverse effects; record site/temp For COVID 19 PREVENTION 0.5mL 01/02 Inactiv e 2023 19692 87629 4 1 time Intram uscula r False [facility] - Nurse initials indicate verificatio n that [id number] vaccine was administere d by [facility] Representat jon 1 Intramuscular 1 time ( Indicate vaccine type) For vaccine 1 05/03 Inactiv e 2023 1 time Intram uscula r False Lisinopril 40 mg tablet [generic] TAKE ONE (1) TABLET BY MOUTH IN THE MORNING. For DX- HTN 1 2023 Active 2023 08221 08023 1 Once daily By Mouth False Tizanidine 2 mg tablet [generic] TAKE ONE (1) TABLET BY MOUTH ONCE DAILY For MUSCLE SPASM 1 2023 Active 2023 36204 86796 0 Once daily By Mouth M62.838 False Tamsulosin 0.4 mg capsule [generic] TAKE (1) CAPSULE BY MOUTH AT BEDTIME For SPASMS 1 2023 Active 2023 07630 60224 0 Once daily By Mouth False Aspirin 81 mg tablet Once daily 1 TABLET BY MOUTH IN THE MORNING For DX- CAD DO NOT CRUSH, CHEW OR BREAK 81 mg 06/12 Inactiv e 2023 Once daily By Mouth False Baclofen 20 mg tablet [generic] 20 mg By Mouth 4 times a day For DX- MUSCLE SPASMS 20 mg 12/12 Inactiv e 2023 49228 78627 1 4 times a day By Mouth False Calcium citrate 250 mg tablet Once daily 4 TABLET BY MOUTH For DX- SUPPLEMENT 250 mg calci 12/12 Inactiv e 2023 Once daily By Mouth False Co Q-10 100 mg capsule 100 mg By Mouth Once daily For DX- SUPPLEMENT 100 mg 06/20 Inactiv e 2023 15966 94627 5 Once daily By Mouth False Furosemide 20 mg tablet [generic] 20 mg By Mouth Once daily For DX-CHF 20 mg 12/12 Inactiv e 2023 33078 23767 0 Once daily By Mouth False Gabapentin 300 mg capsule [generic] 300 mg By Mouth 3 times a day For DX- NEUROPATHY 300 mg 12/12 Inactiv e 2023 48118 55690 4 3 times a day By Mouth False Loratadine 10 mg tablet [generic] 10 mg By Mouth Once daily For DX- ALLERGIES 10 mg 2023 Active 2023 06244 13362 1 Once daily By Mouth False Miralax 17 gram/dose oral powder 17 gram/dose By Mouth IN THE MORNING Mix 1 TABLESPOON IN 8 OZ OF FLUID HOLD FOR LOOSE STOOLS For DX- CONSTIPATION 17 gram/do se 12/12 Inactiv e 2023 13538 46337 0 Once daily By Mouth False Paroxetine 30 mg tablet [generic] 30 mg By Mouth Once daily For DX- DEPRESSION 30 mg 2023 00/00 /0000 Active 2023 51777 16280 3 Once daily By Mouth False Potassium citrate ER 15 mEq (1,620 mg) tablet,exte nded release [generic] 15 mEq By Mouth 3 times a day For DX- SUPPLEMENT/DI URETIC USE/ HYPOCITRAUIRA DO NOT CRUSH 15 mEq 12/12 Inactiv e 2023 58891 67082 1 3 times a day By Mouth [...] For DX- DANDRUFF 12/12 Inactiv e 2023 35036 38108 4 3 times a week Topica l False Acetaminoph en 325 mg tablet [generic] TAKE 2 TABS (650MG) BY MOUTH EVERY 4 HOURS NEEDED FOR TEMP >100 NOT TO EXCEED 3GM/24HRS TAKE 2 TABS (650MG) BY MOUTH EVERY 4 HOURS NEEDED FOR TEMP >100 NOT TO EXCEED 3GM/24HRS For DX-FEVER 2 12/12 Inactiv e 2023 16099 18321 0 By Mouth False MILK OF MAGNESIA ADMINISTER 30 ML BY MOUTH ONCE DAILY NEEDED FOR CONSTIPATION X3 DAYS WITH NO BM. For DX- CONSTIPATION 30ML 12/12 Inactiv e 2023 81611 88474 9 By Mouth False Enema Disposable 19 gram-7 gram/118 mL ADMINISTER ONE ENEMA RECTALLY ONCE DAILY NEEDED FOR CONSTIPATION ON DAY 6 OF NO BM For DX- CONSTIPATION 12/12 Inactiv e 2023 35495 39457 1 Rectal False TUMS EXTRA STR 750MG TAKE (1) TABLET BY MOUTH THREE TIMES DAILY NEEDED FOR INDIGESTION For DX- INDIGESTION 1 12/12 Inactiv e 2023 16141 17518 8 By Mouth False Vitamin D3 25 [...] CONSTIPATION 10 mg 12/12 Inactiv e 2023 62770 30976 1 Rectal False Melatonin 3 mg tablet [generic] 3 mg By Mouth As Needed For DX-INSOMMIA 3 mg 12/12 Inactiv e 2023 57063 65739 8 By Mouth False Hydrocortis one 1 % topical cream [generic] 1 % Topical As Needed For DX- PAIN 1 % 12/12 Inactiv e 2023 82094 35564 1 Topica l False HYDROCORTIS ONE/PARMOXI NE [...] 5-10 50 mg 12/20 Inactiv e 2023 51449 82559 0 Every 4 hours as needed By Mouth False Tylenol 325 mg tablet 325 mg By Mouth Every 4 hours as needed For DX- PAIN PRN FOR MILD PAIN, DO NOT EXCEED 3000MG APAP/24 HOURS 325 mg 12/20 Inactiv e 2023 21773 61552 0 Every 4 hours as needed By Mouth False Baclofen 20 mg tablet [generic] 20 mg By Mouth 4 times a day For MUSCLE SPASMS 20 mg 12/20 Inactiv e 2023 98245 80637 1 4 times a day By Mouth False Calcium citrate 250 mg tablet [generic] Once daily TAKE 4 TABLETS (1000MG) BY MOUTH For SUPPLEMENT 1000 MG 06/26 Inactiv e 2023 40710 22281 6 Once daily By Mouth False Dulcolax (bisacodyl) 10 mg rectal suppository 10 mg Rectal Once daily For CONSTIPATION *MAY HOLD FOR LOOSE STOOLS* 10 mg 2023 Active 2023 51981 11895 1 Once daily Rectal False Gabapentin 300 mg capsule [generic] 300 mg By Mouth 3 times a day For NEUROPATHY 300 mg 2023 Active 2023 60771 28833 4 3 times a day By Mouth False Potassium citrate ER 15 mEq (1,620 mg) tablet,exte nded release [generic] 15 mEq By Mouth 3 times a day For SUPPLEMENT/DI URETIC USE/HYPOCITRA URIA 15 mEq 06/11 Inactiv e 2023 59038 19267 1 3 times a day By Mouth False Potassium chloride ER 20 mEq tablet,exte nded release [generic] 20 mEq By Mouth 3 times a day *DO NOT CRUSH, CHEW OR BREAK* For SUPPLEMENT 20 mEq 12/18 Inactiv e 2023 44535 79225 1 3 times a day By Mouth False Tizanidine 4 mg tablet [generic] 4 mg By Mouth Once daily For MUSCLE SPASMS 4 mg 2023 Active 2023 48318 15234 0 Once daily By Mouth False Tylenol 325 mg tablet 2 tabs By Mouth Every 4 hours as needed For Fever >100 DO NOT EXCEED 3000 MG APAP/24 Hours 2 tabs 12/20 Inactiv e 2023 04877 04810 0 Every 4 hours as needed By Mouth False Dulcolax (bisacodyl) 10 mg rectal suppository Daily as needed For Constipation 1 sup 12/20 Inactiv e 2023 86651 91538 1 Daily as needed Rectal False Fleet Enema 19 gram-7 gram/118 mL 1 Rectal Daily as neededFor Constipation 1 12/20 Inactiv e 2023 29596 47395 6 Daily as needed Rectal False Milk of Magnesia 400 mg/5 mL oral suspension [Magnesium hydroxide] PRN 30ml By Mouth Daily as needed for constipation one time daily if no BM, on day 4 of no BM (PRN refer to instructions) For Constipation For Constipatioin 30ml 12/20 Inactiv e 2023 17535 27706 6 1 time By Mouth False Melatonin 3 mg tablet [generic] 3 mg By Mouth Once daily As Needed For INSOMNIA 3 mg 12/20 Inactiv e 2023 20407 35924 8 Once daily By Mouth False Hydrocortis one 1 % topical cream [generic] 1 % Rectal Four times daily as needed For hemorroid pain 1 % 12/20 Inactiv e 2023 83721 46088 1 Four times daily as needed Rectal False X-STGH ANTACID 750MG CHEW TAKE (1) TABLET BY MOUTH THREE TIMES DAILY NEEDED FOR INDIGESTION 12/20 Inactiv e 2023 64314 36599 4 Three times daily as needed Saline Mist 0.65 % nasal spray aerosol 0.65 % Nares Four times daily as needed For DRYNESS 0.65 % 12/20 Inactiv e 2023 98246 31385 8 Four times daily as needed Nares False Vicks Vaporub 4.7 %-1.2 %-2.6 % topical ointment Apply topically to chest Three times daily as needed For CONGESTION 4.7-1.2 -2.6 12/20 Inactiv e 2023 90475 75042 1 Three times daily as needed Topica l False VITAMIN D3 2000U CAP TAKE ONE (1) CAPSULE BY MOUTH DAILY* DO NOT CRUSH, CHEW OR BREAK* For Supplement 1 capsule 12/19 Inactiv e 2023 70807 95188 0 Once daily By Mouth False Potassium chloride ER 20 mEq tablet,exte nded release(par t/cryst) [generic] TAKE (1) TABLET BY MOUTH THREE TIMES DAILY (MORNING, AFTERNOON, EVENING)*DO NOT CRUSH, CHEW, OR BREAK* For SUPPLEMENT 20 MEQ 06/11 Inactiv e 2023 78014 18528 5 3 times a day By Mouth False Aspirin 81 mg tablet,camron yed release [generic] TAKE ONE (1) TABLET BY MOUTH ONCE DAILY*DO NOT CRUSH, CHEW OR BREAK* For CAD 81 MG 12/22 Inactiv e 2023 99150 56014 0 Once daily By Mouth False Furosemide 20 mg tablet [generic] TAKE 1 AND 1/2 TABLETS (30MG) BY MOUTH ONCE DAILY For CHF 30mg 2023 Active 2023 79163 63276 1 Once daily By Mouth False Polyethylen e glycol 3350 17 gram/dose oral powder [generic] MIX 17 GRAMS (1 CAPFUL) IN 60Z OF LIQUID AND DRINK BY MOUTH ONCE DAILY *HOLD FOR LOOSE STOOLS* For constipation 17 g 2023 Active 2023 29227 39648 3 Once daily By Mouth False Vitamin D3 50 mcg (2,000 unit) capsule Once daily TAKE ONE (1) CAPSULE BY MOUTH DAILY* DO NOT CRUSH, CHEW OR BREAK* For Supplement 1 capsule 02/07 Inactiv e 2023 72953 34640 2 Once daily By Mouth False Fleet Enema 19 gram-7 gram/118 mL 1 Rectal Daily as neededFor Constipation 1 2023 0000 Active 2023 75136 33678 6 Daily as needed Rectal False Tums E-X 300 mg (as calcium carbonate 750 mg) chewable tablet 1 tab By Mouth TAKE (1) TABLET BY MOUTH THREE TIMES DAILY NEEDED FOR INDIGESTION 1 tab 202300 /0000 Active 2023 52677 24308 1 Three times daily as needed By Mouth False Tylenol 325 mg tablet 2 tabs By Mouth Every 4 hours as needed For Fever >100 DO NOT EXCEED 3000 MG APAP/24 Hours 2 tabs 202300 /0000 Active 2023 28094 76137 0 Every 4 hours as needed By Mouth False Vicks Vaporub 4.7 %-1.2 %-2.6 % topical ointment Apply topically to chest Three times daily as needed For CONGESTION topical 202300 Active 2023 22504 07940 1 Three times daily as needed Topica l False Tylenol 325 mg tablet 2 tabs By Mouth Every 4 hours as needed For DX- PAIN PRN FOR MILD PAIN, DO NOT EXCEED 3000MG APAP/24 HOURS 2 tabs 202300 Active 2023 79141 32176 0 Every 4 hours as needed By Mouth False Tramadol 50 mg tablet [generic] 1 tab By Mouth Every 4 hours as needed For DX- PAIN 5-10 1 tab 03/10 Inactiv e 2023 71027 40543 0 Every 4 hours as needed By Mouth False Saline Mist 0.65 % nasal spray aerosol 2 sprays Nares Four times daily as needed For DRYNESS 2 sprays 202300 / Active 2023 51952 83837 8 Four times daily as needed Nares False Dulcolax (bisacodyl) 10 mg rectal suppository Daily as needed For Constipation 1 sup 202300 / Active 2023 82922 79490 1 Daily as needed Rectal False Hydrocortis one-pramoxi ne 1 %-1 % rectal cream [generic] 1 mague Rectal Four times daily as needed For hemorroid pain 1 mague 202300 /0000 Active 2023 13522 96055 4 Four times daily as needed Rectal False Melatonin 3 mg tablet [generic] 1 tab By Mouth At bedtime as needed For INSOMNIA 1 tab 12/24 Inactiv e 2023 56665 39851 8 At bedtime as needed By Mouth False Milk of Magnesia 400 mg/5 mL oral suspension 30ml By Mouth Daily as needed Daily as needed for constipation one time daily if no BM, on day 4 of no BM (PRN refer to instructions) For Constipation For Constipatioin 30ml 2023 Active 2023 40996 17945 2 Daily as needed By Mouth False Baclofen 20 mg tablet [generic] 20 mg By Mouth 4 times a day For MUSCLE SPASMS 20 mg 2023 Active 2023 58813 40282 1 4 times a day By Mouth False Melatonin 3 mg tablet [generic] 1 tab By Mouth At bedtime as needed For INSOMNIA 1 tab 2023 Active 2023 21552 58234 8 At bedtime as needed By Mouth False Bactrim DS 800 mg-160 mg tablet 1 tab By Mouth Twice daily For URINARY TRACT INFECTION, SITE NOT SPECIFIED 1 tab 01/06 Inactiv e 2023 10638 22269 1 Twice daily By Mouth N39.0 False Cefdinir 300 mg capsule [generic] 300 mg By Mouth Twice daily For UTI 300 mg 01/07 Inactiv e 2023 10380 53505 0 Twice daily By Mouth False Cefdinir 300 mg capsule [generic] 300 mg By Mouth Twice daily For UTI 300 mg 01/17 Inactiv e 2023 57972 82923 0 Twice daily By Mouth False Zyrtec 10 mg tablet 10 mg By Mouth Once daily For sinus congestion 10 mg 01/22 Inactiv e 2023 54994 26328 0 Once daily By Mouth False Tobramycin 0.3 %-dexametha sone 0.1 % eye drops,suspe nsion [generic] 0.3-0.1 % Left Eye 4 times a day For eye infection 0.3-0.1 % 02/05 Inactiv e 2023 58643 57785 5 4 times a day Left Eye False Fluconazole 150 mg tablet [generic] 150 mg By Mouth 1 time For yeast infection 150 mg 02/15 Inactiv e 2023 64863 87979 2 1 time By Mouth False Tramadol 50 mg tablet [generic] 1 tab By Mouth Every 4 hours as needed For DX- PAIN 5-10 1 tab 2023 00/00 /0000 Active 2023 86615 17609 0 Every 4 hours as needed By Mouth False Tobramycin 0.3 %-dexametha sone 0.1 % eye drops,suspe nsion [generic] 1 drop Left Eye 4 times a day For Inflammation of left eye 1 drop 05/08 Inactiv e 2023 38990 59981 5 4 times a day Left Eye False Voltaren Arthritis Pain 1 % topical gel 2 gm Topical Twice daily to rigth shoulder for 2 weeks For pain 2 gm 05/08 Inactiv e 2023 58513 26896 1 Twice daily Topica l False Chlorthalid one 25 mg tablet [generic] 12.5mg By Mouth Once daily For HTN 12.5mg 05/06 Inactiv e 2023 67701 91149 0 Once daily By Mouth False Chlorthalid one 25 mg tablet [generic] 12.5mg By Mouth Once daily For HTN 12.5mg 05/07 Inactiv e 2023 58557 37810 0 Once daily By Mouth False Chlorthalid one 25 mg tablet [generic] 05/07 Inactiv e 2023 90318 76442 0 Chlorthalid one 25 mg tablet [generic] 12.5mg By Mouth Once daily For HTN 12.5mg 06/26 Inactiv e 2023 74504 60381 0 Once daily By Mouth False Norvasc 5 mg tablet 5mg By Mouth Once daily, hold medication if systolic is less than 90 For HYPERTENSIVE HEART DISEASE WITHOUT HEART FAILURE 5mg 06/03 Inactiv e 2023 07762 00709 1 Once daily By Mouth I11.9 False Norvasc 5 mg tablet 5mg By Mouth Once daily, hold medication if systolic is less than 90 For HYPERTENSIVE HEART DISEASE WITHOUT HEART FAILURE 5mg 06/03 Inactiv e 2023 24669 21977 1 Once daily By Mouth I11.9 False Norvasc 5 mg tablet 5mg By Mouth Once daily, hold medication if systolic is less than 90 For HYPERTENSIVE HEART DISEASE WITHOUT HEART FAILURE 5mg 06/26 Inactiv e 2023 59928 76468 1 Once daily By Mouth I11.9 False [...] 10 mg 2023 00/00 /0000 Active 2023 15111 15144 1 Once daily By Mouth False DISCONTINUE [...] CAD 81 mg 06/14 Inactiv e 2023 86823 04430 9 Once daily By Mouth False Aspirin 81 mg tablet,camron yed release [generic] 06/14 Inactiv e 2023 87507 71365 9 Aspirin 81 mg tablet,camron yed release [generic] 81 mg By Mouth Once daily Do not crush, chew, or break For CAD 81 mg 06/154 Inactiv e 2023 52546 35045 9 Once daily By Mouth False Cefpodoxime 200 mg tablet [generic] 200mg By Mouth Twice daily For UTI 200mg 07/04 Inactiv e 2023 03945 77698 0 Twice daily By Mouth False Calcium citrate 250 mg tablet [generic] 06/26 Inactiv e 2023 65839 71348 6 Calcium citrate 250 mg tablet [generic] Once daily TAKE 4 TABLETS (1000MG) BY MOUTH For SUPPLEMENT 500 MG 2023 Active 2023 18829 12326 6 Once daily By Mouth False Norvasc 5 mg tablet 7.5 mg By Mouth Once daily Hold medication if SBP <90 For HYPERTENSIVE HEART DISEASE WITHOUT HEART FAILURE 7.5 mg 06/30 Inactiv e 2023 59018 82011 1 Once daily By Mouth I11.9 False Norvasc 5 mg tablet 7.5 mg By Mouth Once daily Hold medication if SBP <90 For HYPERTENSIVE HEART DISEASE WITHOUT HEART FAILURE 7.5 mg 07/06 Inactiv e 2023 32211 27729 1 Once daily By Mouth I11.9 False Simethicone 125 mg capsule [generic] 2 capule By Mouth Twice daily as needed For bloating/gas pain 2 capule 2023 Active 2023 94394 45689 0 Twice daily as needed By Mouth False Cepacol Sore Throat (benzocaine -menthol) 15 mg-2.6 mg lozenges 2 lozenges By Mouth Every 6 hours as needed For sore throat 2 lozenge s 2023 Active 2023 56961 10521 6 Every 6 hours as needed By Mouth False Cefepime 1 gram solution for injection [generic] 1g Intramuscular Every 12 hours 1g intramuscular ly ever 12 hours For UTI 1g 07/06 Inactiv e 2023 91298 34751 4 Every 12 hours Intram uscula r False Cefepime 1 gram solution for injection [generic] 07/06 Inactiv e 2023 79316 71552 4 Cefepime 1 gram solution for injection [generic] 1g Intramuscular Every 12 hours 1g intramuscular ly ever 12 hours For UTI Reconstitute with 2.4 ML of NSS. 1g 07/08 Inactiv e 2023 97293 82789 4 Every 12 hours Intram uscula r False Norvasc 5 mg tablet 07/06 Inactiv e 2023 63459 45263 1 I11.9 Norvasc 5 mg tablet 7.5 mg By Mouth Once daily Hold medication if SBP <90 For HYPERTENSIVE HEART DISEASE WITHOUT HEART FAILURE 7.5 mg 2023 00 /0000 Active 2023 50621 50452 1 Once daily By Mouth I11.9 False Cefepime 1 gram solution for injection [generic] 07/08 Inactiv e 2023 84192 36699 4 Cefepime 1 gram solution for injection [generic] 1g Intramuscular Every 12 hours 1g intramuscular ly ever 12 hours For UTI Reconstitute with 2.4 ML of NSS. 1g 07/08 Inactiv e 2023 93688 31114 4 Every 12 hours Intram uscula r False Cefepime 1 gram solution for injection [generic] 07/08 Inactiv e 2023 25959 82847 4 Cefepime 1 gram solution for injection [generic] 1g Intramuscular Every 12 hours 1g intramuscular ly ever 12 hours For UTI Reconstitute with 2.4 ML of NSS. 1g 07/11 Inactiv e 2023 81849 68071 4 Every 12 hours Intram uscula r False Fleet Enema 19 gram-7 gram/118 mL 1 Rectal 1 time For constipation 1 07/16 Inactiv e 2024 03549 55506 6 1 time Rectal False Nystatin 100,000 unit/gram topical cream [generic] 100,000 unit Topical As Needed For DX- EXCORIATION 100,000 unit 12/12 Inactiv e 2023 01002 62562 5 Topica l False Vicks Vaporub 4.7 %-1.2 %-2.6 % topical ointment 4.7-1.2-2.6 Topical 3 times a day As Needed For DX- CONGESTION 4.7-1.2 -2.6 12/12 Inactiv e 2023 27841 35048 1 3 times a day Topica l False Ketoconazol e 2 % shampoo [generic] APPLY SHAMPOO TOPICALLY TO SCALP DURING HAIR WASHINGDX: ELVIA DERM OF SCALP For DX- LEVIA DERM OF SCALP 12/12 Inactiv e 2023 27448 80662 4 Topica l False THERA SILICONE SKIN GUARD Topical Twice daily 1 APPLICATION TOPICALLY IN THE MORNING AND AT BEDTIME TO SCROTUM For DX- PREVENTION 2023 0000 Active 2023 Twice daily Topica l False Selenium sulfide 2.5 % lotion [generic] 2.5 % Topical EVERY MONDAY, MONDAY AND MONDAY AFTER SHOWER For DANDRUFF 2.5 % 2023 00/00 /0000 Active 2023 09969 90284 4 3 times a week Topica l False Nystatin (bulk) 100 million unit powder [generic] 100 million Topical Twice daily as needed For EXOCORATION 100 million 12/20 Inactiv e 2023 22290 72175 1 Twice daily as needed Topica l False Ketoconazol e 2 % shampoo [generic] Once daily APPLY SHAMPOO TOPICALLY TO SCALP DURING HAIR WASHING ON SHOWER DAYS- , , MON For ELVIA DERM OF SCAP 2 % 2023 0000 /0000 Active 2023 46927 48062 4 Once daily Topica l False Nystatin 100,000 unit/gram topical cream [generic] 1 mague Topical Twice daily as needed For EXOCORATION 1 mague 06/05 Inactiv e 2023 94742 78449 5 Twice daily as needed Topica l False Nystatin 100,000 unit/gram topical powder [generic] 100,000 unit Topical Twice daily to scrotum with AM and PM care For Scrotal excoriation 100,000 unit 06/05 Inactiv e 2023 22957 82840 5 Twice daily Topica l False Problems [...] weight Temperature SpO2 Blood Sugar Pulse Respirations 60738 208 19390 9 82.00 mm[Hg] - Sitting 128.00 mm[Hg] - Sitting 28191 209 11325 2 78.00 mm[Hg] - Sitting 130.00 mm[Hg] - Sitting 73596 210 14997 6 80.00 mm[Hg] - Sitting 132.00 mm[Hg] - Sitting 55231 211 56051 5 78.00 mm[Hg] - Sitting 125.00 mm[Hg] - Sitting 35809 216 11515 1 254.10 NI [address]884 216 36218 2 79.00 mm[Hg] - Sitting 157.00 mm[Hg] - Sitting 73 NI 254.10 NI 36.30 Tympanic 95.00 % 72.00/ min 16.00/min 55037 216 26127 4 98.80 Tympanic 64114 216 73557 2 78.00 mm[Hg] - Sitting 164.00 mm[Hg] - Sitting 44737 217 36390 3 98.20 Tympanic 74875 217 16789 5 73.00 mm[Hg] - Sitting 159.00 mm[Hg] - Sitting 96582 217 59633 9 98.40 Forehead Scan 73636 218 21438 3 97.90 Tympanic 21836 218 71140 5 77.00 mm[Hg] - Sitting 137.00 mm[Hg] - Sitting 93055 219 31131 0 97.70 Tympanic 84846 219 77328 6 97.60 Tympanic 33651 219 53108 4 76.00 mm[Hg] - Sitting 139.00 mm[Hg] - Sitting 52735 219 51785 4 97.80 Forehead Scan 12290 220 09690 9 97.90 Tympanic 45225 220 49429 9 76.00 mm[Hg] - Sitting 138.00 mm[Hg] - Sitting 04579 220 99632 6 98.10 Tympanic 08354 221 38538 5 67.00 mm[Hg] - Sitting 142.00 mm[Hg] - Sitting 45655 221 13294 8 98.20 Tympanic 30435 221 58036 0 98.30 Tympanic 03803 222 05900 7 98.20 Tympanic 42029 222 00454 8 97.90 Tympanic 81607 223 75285 3 98.20 Tympanic 88480 223 74925 3 98.00 Tympanic 91860 224 12491 0 59.00 mm[Hg] - Sitting 111.00 mm[Hg] - Sitting 98.40 Forehead Scan 95.00 % 56.00/ min 18.00/min 76390 224 65016 9 98.20 Forehead Scan 25788 224 31137 3 97.90 Tympanic 34451 225 26225 4 98.20 Tympanic 03448 225 67021 8 97.50 Forehead Scan 18007 228 40771 0 55.00 mm[Hg] - Sitting 118.00 mm[Hg] - Sitting 98.40 Tympanic 69.00/ min 66107 229 47007 8 78.00 mm[Hg] - Sitting 152.00 mm[Hg] - Sitting 02653 230 44962 0 62.00 mm[Hg] - Sitting 122.00 mm[Hg] - Sitting 45862 231 46178 7 72.00 mm[Hg] - Lying Down 140.00 mm[Hg] - Lying Down 77521 101 78306 3 97.70 Forehead Scan 47506 101 49311 1 254.10 NI 69.00/ min 67427 101 93621 9 72.00 mm[Hg] - Sitting 142.00 mm[Hg] - Sitting 97.70 Tympanic 18.00/min 99565 101 72032 3 72.00 mm[Hg] - Lying Down 142.00 mm[Hg] - Lying Down 49476 102 19977 8 68.00 mm[Hg] - Lying Down 152.00 mm[Hg] - Lying Down 78222 103 26609 5 74.00 mm[Hg] - Sitting 158.00 mm[Hg] - Sitting 84918 104 62166 9 78.00 mm[Hg] - Sitting 144.00 mm[Hg] - Sitting 19537 105 27624 5 68.00 mm[Hg] - Sitting 138.00 mm[Hg] - Sitting 14292 106 24538 1 70.00 mm[Hg] - Sitting 138.00 mm[Hg] - Sitting 30523 107 82125 1 67.00 mm[Hg] - Sitting 142.00 mm[Hg] [...]
--- OUTSIDE RECORDS SUMMARY | 2024-07-26 11:21 | External Medical Summary | Continuity Of Care Document ---
Author Name Unknown Address [address] [place] [address] Organization [facility] () Care Team Providers Care Rubber Turner Name Role Phone DO Pritchett Amy Primary Care Provider [phone] Allergies Allergy Reaction Start Date End Date Status AMINOGLYCOSIDES Active CIPRO Active GENTAMICIN Active NSAIDS (NON-STEROIDAL ANTI-INFLAMMATORY DRUG) 0 Active IBUPROFEN Active QUINOLONES Active VALIUM Active Medications Medication Instructions Dosage Start Date End Date Status Order Date Drug Code Frequency Route of Admin Diagnosis Code Substitutions Allowed Spikevax [id number](1 2y up)(PF) 50 mcg/0.5 mL intramuscul ar suspension [COVID [id number](12 up)(andu)(P F)] 0.5mL Intramuscular 1 time Monitory 15 Minutes post injection for adverse effects; record site/temp For COVID 19 PREVENTION 0.5mL 01/02 Inactiv e 2023 86960 75233 4 1 time Intram uscula r False [facility] - Nurse initials indicate verificatio n that [id number] vaccine was administere d by [facility] 1 Intramuscular 1 time ( Indicate vaccine type) For vaccine 1 05/03 Inactiv e 2023 1 time Intram uscula r False Lisinopril 40 mg tablet [generic] TAKE ONE (1) TABLET BY MOUTH IN THE MORNING. For DX- HTN 1 2023 Active 2023 58338 08363 1 Once daily By Mouth False Tizanidine 2 mg tablet [generic] TAKE ONE (1) TABLET BY MOUTH ONCE DAILY For MUSCLE SPASM 1 2023 Active 2023 09878 85658 0 Once daily By Mouth M62.838 False Tamsulosin 0.4 mg capsule [generic] TAKE (1) CAPSULE BY MOUTH AT BEDTIME For SPASMS 1 2023 Active 2023 88581 20296 0 Once daily By Mouth False Aspirin 81 mg tablet Once daily 1 TABLET BY MOUTH IN THE MORNING For DX- CAD DO NOT CRUSH, CHEW OR BREAK 81 mg 06/12 Inactiv e 2023 Once daily By Mouth False Baclofen 20 mg tablet [generic] 20 mg By Mouth 4 times a day For DX- MUSCLE SPASMS 20 mg 12/12 Inactiv e 2023 72623 83204 1 4 times a day By Mouth False Calcium citrate 250 mg tablet Once daily 4 TABLET BY MOUTH For DX- SUPPLEMENT 250 mg calci 12/12 Inactiv e 2023 Once daily By Mouth False Co Q-10 100 mg capsule 100 mg By Mouth Once daily For DX- SUPPLEMENT 100 mg 06/20 Inactiv e 2023 54128 82882 5 Once daily By Mouth False Furosemide 20 mg tablet [generic] 20 mg By Mouth Once daily For DX-CHF 20 mg 12/12 Inactiv e 2023 46327 84951 0 Once daily By Mouth False Gabapentin 300 mg capsule [generic] 300 mg By Mouth 3 times a day For DX- NEUROPATHY 300 mg 12/12 Inactiv e 2023 91802 54857 4 3 times a day By Mouth False Loratadine 10 mg tablet [generic] 10 mg By Mouth Once daily For DX- ALLERGIES 10 mg 2023 Active 2023 76510 77948 1 Once daily By Mouth False Miralax 17 gram/dose oral powder 17 gram/dose By Mouth IN THE MORNING Mix 1 TABLESPOON IN 8 OZ OF FLUID HOLD FOR LOOSE STOOLS For DX- CONSTIPATION 17 gram/do se 12/12 Inactiv e 2023 49263 54913 0 Once daily By Mouth False Paroxetine 30 mg tablet [generic] 30 mg By Mouth Once daily For DX- DEPRESSION 30 mg 2023 00/00 /0000 Active 2023 76777 37614 3 Once daily By Mouth False Potassium citrate ER 15 mEq (1,620 mg) tablet,exte nded release [generic] 15 mEq By Mouth 3 times a day For DX- SUPPLEMENT/DI URETIC USE/ HYPOCITRAUIRA DO NOT CRUSH 15 mEq 12/12 Inactiv e 2023 35963 95388 1 3 times a day By Mouth [...] For DX- DANDRUFF 12/12 Inactiv e 2023 06907 90335 4 3 times a week Topica l False Acetaminoph en 325 mg tablet [generic] TAKE 2 TABS (650MG) BY MOUTH EVERY 4 HOURS NEEDED FOR TEMP >100 NOT TO EXCEED 3GM/24HRS TAKE 2 TABS (650MG) BY MOUTH EVERY 4 HOURS NEEDED FOR TEMP >100 NOT TO EXCEED 3GM/24HRS For DX-FEVER 2 12/12 Inactiv e 2023 29673 09684 0 By Mouth False MILK OF MAGNESIA ADMINISTER 30 ML BY MOUTH ONCE DAILY NEEDED FOR CONSTIPATION X3 DAYS WITH NO BM. For DX- CONSTIPATION 30ML 12/12 Inactiv e 2023 55908 13320 9 By Mouth False Enema Disposable 19 gram-7 gram/118 mL ADMINISTER ONE ENEMA RECTALLY ONCE DAILY NEEDED FOR CONSTIPATION ON DAY 6 OF NO BM For DX- CONSTIPATION 12/12 Inactiv e 2023 45313 32857 1 Rectal False TUMS EXTRA STR 750MG TAKE (1) TABLET BY MOUTH THREE TIMES DAILY NEEDED FOR INDIGESTION For DX- INDIGESTION 1 12/12 Inactiv e 2023 92065 48933 8 By Mouth False Vitamin D3 25 [...] CONSTIPATION 10 mg 12/12 Inactiv e 2023 55007 59599 1 Rectal False Melatonin 3 mg tablet [generic] 3 mg By Mouth As Needed For DX-INSOMMIA 3 mg 12/12 Inactiv e 2023 82392 51925 8 By Mouth False Hydrocortis one 1 % topical cream [generic] 1 % Topical As Needed For DX- PAIN 1 % 12/12 Inactiv e 2023 04870 30665 1 Topica l False HYDROCORTIS ONE/PARMOXI NE [...] 5-10 50 mg 12/20 Inactiv e 2023 10777 65042 0 Every 4 hours as needed By Mouth False Tylenol 325 mg tablet 325 mg By Mouth Every 4 hours as needed For DX- PAIN PRN FOR MILD PAIN, DO NOT EXCEED 3000MG APAP/24 HOURS 325 mg 12/20 Inactiv e 2023 48342 88955 0 Every 4 hours as needed By Mouth False Baclofen 20 mg tablet [generic] 20 mg By Mouth 4 times a day For MUSCLE SPASMS 20 mg 12/20 Inactiv e 2023 25594 48974 1 4 times a day By Mouth False Calcium citrate 250 mg tablet [generic] Once daily TAKE 4 TABLETS (1000MG) BY MOUTH For SUPPLEMENT 1000 MG 06/26 Inactiv e 2023 48303 62289 6 Once daily By Mouth False Dulcolax (bisacodyl) 10 mg rectal suppository 10 mg Rectal Once daily For CONSTIPATION *MAY HOLD FOR LOOSE STOOLS* 10 mg 2023 Active 2023 62028 38571 1 Once daily Rectal False Gabapentin 300 mg capsule [generic] 300 mg By Mouth 3 times a day For NEUROPATHY 300 mg 2023 Active 2023 74196 13024 4 3 times a day By Mouth False Potassium citrate ER 15 mEq (1,620 mg) tablet,exte nded release [generic] 15 mEq By Mouth 3 times a day For SUPPLEMENT/DI URETIC USE/HYPOCITRA URIA 15 mEq 06/11 Inactiv e 2023 19723 69029 1 3 times a day By Mouth False Potassium chloride ER 20 mEq tablet,exte nded release [generic] 20 mEq By Mouth 3 times a day *DO NOT CRUSH, CHEW OR BREAK* For SUPPLEMENT 20 mEq 12/18 Inactiv e 2023 13057 13241 1 3 times a day By Mouth False Tizanidine 4 mg tablet [generic] 4 mg By Mouth Once daily For MUSCLE SPASMS 4 mg 2023 Active 2023 97978 38623 0 Once daily By Mouth False Tylenol 325 mg tablet 2 tabs By Mouth Every 4 hours as needed For Fever >100 DO NOT EXCEED 3000 MG APAP/24 Hours 2 tabs 12/20 Inactiv e 2023 33064 38486 0 Every 4 hours as needed By Mouth False Dulcolax (bisacodyl) 10 mg rectal suppository Daily as needed For Constipation 1 sup 12/20 Inactiv e 2023 96725 11108 1 Daily as needed Rectal False Fleet Enema 19 gram-7 gram/118 mL 1 Rectal Daily as neededFor Constipation 1 12/20 Inactiv e 2023 33909 15438 6 Daily as needed Rectal False Milk of Magnesia 400 mg/5 mL oral suspension [Magnesium hydroxide] PRN 30ml By Mouth Daily as needed for constipation one time daily if no BM, on day 4 of no BM (PRN refer to instructions) For Constipation For Constipatioin 30ml 12/20 Inactiv e 2023 17711 21746 6 1 time By Mouth False Melatonin 3 mg tablet [generic] 3 mg By Mouth Once daily As Needed For INSOMNIA 3 mg 12/20 Inactiv e 2023 60283 99898 8 Once daily By Mouth False Hydrocortis one 1 % topical cream [generic] 1 % Rectal Four times daily as needed For hemorroid pain 1 % 12/20 Inactiv e 2023 40742 52920 1 Four times daily as needed Rectal False X-STGH ANTACID 750MG CHEW TAKE (1) TABLET BY MOUTH THREE TIMES DAILY NEEDED FOR INDIGESTION 12/20 Inactiv e 2023 24953 91999 4 Three times daily as needed Saline Mist 0.65 % nasal spray aerosol 0.65 % Nares Four times daily as needed For DRYNESS 0.65 % 12/20 Inactiv e 2023 06413 55750 8 Four times daily as needed Nares False Vicks Vaporub 4.7 %-1.2 %-2.6 % topical ointment Apply topically to chest Three times daily as needed For CONGESTION 4.7-1.2 -2.6 12/20 Inactiv e 2023 77895 09567 1 Three times daily as needed Topica l False VITAMIN D3 2000U CAP TAKE ONE (1) CAPSULE BY MOUTH DAILY* DO NOT CRUSH, CHEW OR BREAK* For Supplement 1 capsule 12/19 Inactiv e 2023 22966 26183 0 Once daily By Mouth False Potassium chloride ER 20 mEq tablet,exte nded release(par t/cryst) [generic] TAKE (1) TABLET BY MOUTH THREE TIMES DAILY (MORNING, AFTERNOON, EVENING)*DO NOT CRUSH, CHEW, OR BREAK* For SUPPLEMENT 20 MEQ 06/11 Inactiv e 2023 52511 17463 5 3 times a day By Mouth False Aspirin 81 mg tablet,camron yed release [generic] TAKE ONE (1) TABLET BY MOUTH ONCE DAILY*DO NOT CRUSH, CHEW OR BREAK* For CAD 81 MG 12/22 Inactiv e 2023 66458 08602 0 Once daily By Mouth False Furosemide 20 mg tablet [generic] TAKE 1 AND 1/2 TABLETS (30MG) BY MOUTH ONCE DAILY For CHF 30mg 2023 Active 2023 15926 72880 1 Once daily By Mouth False Polyethylen e glycol 3350 17 gram/dose oral powder [generic] MIX 17 GRAMS (1 CAPFUL) IN 60Z OF LIQUID AND DRINK BY MOUTH ONCE DAILY *HOLD FOR LOOSE STOOLS* For constipation 17 g 2023 Active 2023 97802 03813 3 Once daily By Mouth False Vitamin D3 50 mcg (2,000 unit) capsule Once daily TAKE ONE (1) CAPSULE BY MOUTH DAILY* DO NOT CRUSH, CHEW OR BREAK* For Supplement 1 capsule 02/07 Inactiv e 2023 26898 38156 2 Once daily By Mouth False Fleet Enema 19 gram-7 gram/118 mL 1 Rectal Daily as neededFor Constipation 1 2023 0000 Active 2023 12913 47209 6 Daily as needed Rectal False Tums E-X 300 mg (as calcium carbonate 750 mg) chewable tablet 1 tab By Mouth TAKE (1) TABLET BY MOUTH THREE TIMES DAILY NEEDED FOR INDIGESTION 1 tab 202300 /0000 Active 2023 71800 10527 1 Three times daily as needed By Mouth False Tylenol 325 mg tablet 2 tabs By Mouth Every 4 hours as needed For Fever >100 DO NOT EXCEED 3000 MG APAP/24 Hours 2 tabs 202300 /0000 Active 2023 59362 33717 0 Every 4 hours as needed By Mouth False Vicks Vaporub 4.7 %-1.2 %-2.6 % topical ointment Apply topically to chest Three times daily as needed For CONGESTION topical 202300 Active 2023 62270 11527 1 Three times daily as needed Topica l False Tylenol 325 mg tablet 2 tabs By Mouth Every 4 hours as needed For DX- PAIN PRN FOR MILD PAIN, DO NOT EXCEED 3000MG APAP/24 HOURS 2 tabs 202300 Active 2023 78452 40611 0 Every 4 hours as needed By Mouth False Tramadol 50 mg tablet [generic] 1 tab By Mouth Every 4 hours as needed For DX- PAIN 5-10 1 tab 03/10 Inactiv e 2023 01682 39973 0 Every 4 hours as needed By Mouth False Saline Mist 0.65 % nasal spray aerosol 2 sprays Nares Four times daily as needed For DRYNESS 2 sprays 202300 / Active 2023 19025 66520 8 Four times daily as needed Nares False Dulcolax (bisacodyl) 10 mg rectal suppository Daily as needed For Constipation 1 sup 202300 / Active 2023 90602 27541 1 Daily as needed Rectal False Hydrocortis one-pramoxi ne 1 %-1 % rectal cream [generic] 1 mague Rectal Four times daily as needed For hemorroid pain 1 mague 202300 /0000 Active 2023 53848 60220 4 Four times daily as needed Rectal False Melatonin 3 mg tablet [generic] 1 tab By Mouth At bedtime as needed For INSOMNIA 1 tab 12/24 Inactiv e 2023 42412 81846 8 At bedtime as needed By Mouth False Milk of Magnesia 400 mg/5 mL oral suspension 30ml By Mouth Daily as needed Daily as needed for constipation one time daily if no BM, on day 4 of no BM (PRN refer to instructions) For Constipation For Constipatioin 30ml 2023 Active 2023 66719 46791 2 Daily as needed By Mouth False Baclofen 20 mg tablet [generic] 20 mg By Mouth 4 times a day For MUSCLE SPASMS 20 mg 2023 Active 2023 28105 20975 1 4 times a day By Mouth False Melatonin 3 mg tablet [generic] 1 tab By Mouth At bedtime as needed For INSOMNIA 1 tab 2023 Active 2023 73554 39473 8 At bedtime as needed By Mouth False Bactrim DS 800 mg-160 mg tablet 1 tab By Mouth Twice daily For URINARY TRACT INFECTION, SITE NOT SPECIFIED 1 tab 01/06 Inactiv e 2023 95969 33009 1 Twice daily By Mouth N39.0 False Cefdinir 300 mg capsule [generic] 300 mg By Mouth Twice daily For UTI 300 mg 01/07 Inactiv e 2023 34450 07353 0 Twice daily By Mouth False Cefdinir 300 mg capsule [generic] 300 mg By Mouth Twice daily For UTI 300 mg 01/17 Inactiv e 2023 25175 40574 0 Twice daily By Mouth False Zyrtec 10 mg tablet 10 mg By Mouth Once daily For sinus congestion 10 mg 01/22 Inactiv e 2023 02982 47717 0 Once daily By Mouth False Tobramycin 0.3 %-dexametha sone 0.1 % eye drops,suspe nsion [generic] 0.3-0.1 % Left Eye 4 times a day For eye infection 0.3-0.1 % 02/05 Inactiv e 2023 09930 51976 5 4 times a day Left Eye False Fluconazole 150 mg tablet [generic] 150 mg By Mouth 1 time For yeast infection 150 mg 02/15 Inactiv e 2023 79659 89376 2 1 time By Mouth False Tramadol 50 mg tablet [generic] 1 tab By Mouth Every 4 hours as needed For DX- PAIN 5-10 1 tab 2023 00/00 /0000 Active 2023 58398 56484 0 Every 4 hours as needed By Mouth False Tobramycin 0.3 %-dexametha sone 0.1 % eye drops,suspe nsion [generic] 1 drop Left Eye 4 times a day For Inflammation of left eye 1 drop 05/08 Inactiv e 2023 33659 48682 5 4 times a day Left Eye False Voltaren Arthritis Pain 1 % topical gel 2 gm Topical Twice daily to rigth shoulder for 2 weeks For pain 2 gm 05/08 Inactiv e 2023 73934 14155 1 Twice daily Topica l False Chlorthalid one 25 mg tablet [generic] 12.5mg By Mouth Once daily For HTN 12.5mg 05/06 Inactiv e 2023 87509 18669 0 Once daily By Mouth False Chlorthalid one 25 mg tablet [generic] 12.5mg By Mouth Once daily For HTN 12.5mg 05/07 Inactiv e 2023 16426 65612 0 Once daily By Mouth False Chlorthalid one 25 mg tablet [generic] 05/07 Inactiv e 2023 33023 96561 0 Chlorthalid one 25 mg tablet [generic] 12.5mg By Mouth Once daily For HTN 12.5mg 06/26 Inactiv e 2023 84103 27684 0 Once daily By Mouth False Norvasc 5 mg tablet 5mg By Mouth Once daily, hold medication if systolic is less than 90 For HYPERTENSIVE HEART DISEASE WITHOUT HEART FAILURE 5mg 06/03 Inactiv e 2023 66447 96872 1 Once daily By Mouth I11.9 False Norvasc 5 mg tablet 5mg By Mouth Once daily, hold medication if systolic is less than 90 For HYPERTENSIVE HEART DISEASE WITHOUT HEART FAILURE 5mg 06/03 Inactiv e 2023 09203 64477 1 Once daily By Mouth I11.9 False Norvasc 5 mg tablet 5mg By Mouth Once daily, hold medication if systolic is less than 90 For HYPERTENSIVE HEART DISEASE WITHOUT HEART FAILURE 5mg 06/26 Inactiv e 2023 90854 86018 1 Once daily By Mouth I11.9 False [...] 10 mg 2023 00/00 /0000 Active 2023 47712 29906 1 Once daily By Mouth False DISCONTINUE [...] CAD 81 mg 06/14 Inactiv e 2023 25503 21294 9 Once daily By Mouth False Aspirin 81 mg tablet,camron yed release [generic] 06/14 Inactiv e 2023 45919 68908 9 Aspirin 81 mg tablet,camron yed release [generic] 81 mg By Mouth Once daily Do not crush, chew, or break For CAD 81 mg 06/154 Inactiv e 2023 04666 12956 9 Once daily By Mouth False Cefpodoxime 200 mg tablet [generic] 200mg By Mouth Twice daily For UTI 200mg 07/04 Inactiv e 2023 80011 06794 0 Twice daily By Mouth False Calcium citrate 250 mg tablet [generic] 06/26 Inactiv e 2023 87253 28739 6 Calcium citrate 250 mg tablet [generic] Once daily TAKE 4 TABLETS (1000MG) BY MOUTH For SUPPLEMENT 500 MG 2023 Active 2023 66859 89047 6 Once daily By Mouth False Norvasc 5 mg tablet 7.5 mg By Mouth Once daily Hold medication if SBP <90 For HYPERTENSIVE HEART DISEASE WITHOUT HEART FAILURE 7.5 mg 06/30 Inactiv e 2023 65931 89342 1 Once daily By Mouth I11.9 False Norvasc 5 mg tablet 7.5 mg By Mouth Once daily Hold medication if SBP <90 For HYPERTENSIVE HEART DISEASE WITHOUT HEART FAILURE 7.5 mg 07/06 Inactiv e 2023 11112 42803 1 Once daily By Mouth I11.9 False Simethicone 125 mg capsule [generic] 2 capule By Mouth Twice daily as needed For bloating/gas pain 2 capule 2023 Active 2023 27857 99211 0 Twice daily as needed By Mouth False Cepacol Sore Throat (benzocaine -menthol) 15 mg-2.6 mg lozenges 2 lozenges By Mouth Every 6 hours as needed For sore throat 2 lozenge s 2023 Active 2023 29621 06440 6 Every 6 hours as needed By Mouth False Cefepime 1 gram solution for injection [generic] 1g Intramuscular Every 12 hours 1g intramuscular ly ever 12 hours For UTI 1g 07/06 Inactiv e 2023 46185 98629 4 Every 12 hours Intram uscula r False Cefepime 1 gram solution for injection [generic] 07/06 Inactiv e 2023 15106 05028 4 Cefepime 1 gram solution for injection [generic] 1g Intramuscular Every 12 hours 1g intramuscular ly ever 12 hours For UTI Reconstitute with 2.4 ML of NSS. 1g 07/08 Inactiv e 2023 35217 43432 4 Every 12 hours Intram uscula r False Norvasc 5 mg tablet 07/06 Inactiv e 2023 47731 90941 1 I11.9 Norvasc 5 mg tablet 7.5 mg By Mouth Once daily Hold medication if SBP <90 For HYPERTENSIVE HEART DISEASE WITHOUT HEART FAILURE 7.5 mg 2023 000000 Active 2023 57465 56323 1 Once daily By Mouth I11.9 False Cefepime 1 gram solution for injection [generic] 07/08 Inactiv e 2023 43441 90234 4 Cefepime 1 gram solution for injection [generic] 1g Intramuscular Every 12 hours 1g intramuscular ly ever 12 hours For UTI Reconstitute with 2.4 ML of NSS. 1g 07/08 Inactiv e 2023 44265 54788 4 Every 12 hours Intram uscula r False Cefepime 1 gram solution for injection [generic] 07/08 Inactiv e 2023 22661 42632 4 Cefepime 1 gram solution for injection [generic] 1g Intramuscular Every 12 hours 1g intramuscular ly ever 12 hours For UTI Reconstitute with 2.4 ML of NSS. 1g 07/11 Inactiv e 2023 71093 66824 4 Every 12 hours Intram uscula r False Nystatin 100,000 unit/gram topical cream [generic] 100,000 unit Topical As Needed For DX- EXCORIATION 100,000 unit 12/12 Inactiv e 2023 10325 53362 5 Topica l False Vicks Vaporub 4.7 %-1.2 %-2.6 % topical ointment 4.7-1.2-2.6 Topical 3 times a day As Needed For DX- CONGESTION 4.7-1.2 -2.6 12/12 Inactiv e 2023 36170 80421 1 3 times a day Topica l False Ketoconazol e 2 % shampoo [generic] APPLY SHAMPOO TOPICALLY TO SCALP DURING HAIR WASHINGDX: ELVIA DERM OF SCALP For DX- ELVIA DERM OF SCALP 12/12 Inactiv e 2023 16575 64103 4 Topica l False THERA SILICONE SKIN GUARD Topical Twice daily 1 APPLICATION TOPICALLY IN THE MORNING AND AT BEDTIME TO SCROTUM For DX- PREVENTION 202300 Active 2023 Twice daily Topica l False Selenium sulfide 2.5 % lotion [generic] 2.5 % Topical EVERY MONDAY, MONDAY AND MONDAY AFTER SHOWER For DANDRUFF 2.5 % 202300 Active 2023 41737 64831 4 3 times a week Topica l False Nystatin (bulk) 100 million unit powder [generic] 100 million Topical Twice daily as needed For EXOCORATION 100 million 12/20 Inactiv e 2023 44268 77807 1 Twice daily as needed Topica l False Ketoconazol e 2 % shampoo [generic] Once daily APPLY SHAMPOO TOPICALLY TO SCALP DURING HAIR WASHING ON SHOWER DAYS- , , MON For ELVIA DERM OF SCAP 2 % 2023 0000 / Active 2023 35987 35909 4 Once daily Topica l False Nystatin 100,000 unit/gram topical cream [generic] 1 mague Topical Twice daily as needed For EXOCORATION 1 mague 06/05 Inactiv e 2023 39436 88860 5 Twice daily as needed Topica l False Nystatin 100,000 unit/gram topical powder [generic] 100,000 unit Topical Twice daily to scrotum with AM and PM care For Scrotal excoriation 100,000 unit 06/05 Inactiv e 2023 82164 88789 5 Twice daily Topica l False Problems [...] Temperature SpO2 Blood Sugar Pulse Respirations 208 62899 9 82.00 mm[Hg] - Sitting 128.00 mm[Hg] - Sitting 209 76713 2 78.00 mm[Hg] - Sitting 130.00 mm[Hg] - Sitting 84721 210 38725 6 80.00 mm[Hg] - Sitting 132.00 mm[Hg] - Sitting 74754 211 63435 5 78.00 mm[Hg] - Sitting 125.00 mm[Hg] - Sitting 52391 216 88041 1 254.10 NI 19551 216 50860 2 79.00 mm[Hg] - Sitting 157.00 mm[Hg] - Sitting 73 NI 254.10 NI 36.30 Tympanic 95.00 % 72.00/ min 16.00/min 29756 216 45546 4 98.80 Tympanic 57263 216 76946 2 78.00 mm[Hg] - Sitting 164.00 mm[Hg] - Sitting 61415 217 61230 3 98.20 Tympanic 93502 217 00904 5 73.00 mm[Hg] - Sitting 159.00 mm[Hg] - Sitting 54010 217 48066 9 98.40 Forehead Scan 73935 218 51872 3 97.90 Tympanic 31328 218 75350 5 77.00 mm[Hg] - Sitting 137.00 mm[Hg] - Sitting 71855 219 63274 0 97.70 Tympanic 49070 219 83667 6 97.60 Tympanic 78955 219 71179 4 76.00 mm[Hg] - Sitting 139.00 mm[Hg] - Sitting 87425 219 18931 4 97.80 Forehead Scan 64404 220 44637 9 97.90 Tympanic 72939 220 85583 9 76.00 mm[Hg] - Sitting 138.00 mm[Hg] - Sitting 95517 220 77281 6 98.10 Tympanic 26317 221 55538 5 67.00 mm[Hg] - Sitting 142.00 mm[Hg] - Sitting 02416 221 99909 8 98.20 Tympanic 04438 221 52796 0 98.30 Tympanic 40528 222 78634 7 98.20 Tympanic 60807 222 61635 8 97.90 Tympanic 61413 223 60421 3 98.20 Tympanic 67692 223 35765 3 98.00 Tympanic 69792 224 04258 0 59.00 mm[Hg] - Sitting 111.00 mm[Hg] - Sitting 98.40 Forehead Scan 95.00 % 56.00/ min 18.00/min 99123 224 82208 9 98.20 Forehead Scan 23468 224 07161 3 97.90 Tympanic 16759 225 53021 4 98.20 Tympanic 05053 225 00511 8 97.50 Forehead Scan 54414 228 74121 0 55.00 mm[Hg] - Sitting 118.00 mm[Hg] - Sitting 98.40 Tympanic 69.00/ min 04713 229 67131 8 78.00 mm[Hg] - Sitting 152.00 mm[Hg] - Sitting 60152 230 05508 0 62.00 mm[Hg] - Sitting 122.00 mm[Hg] - Sitting 08437 231 49301 7 72.00 mm[Hg] - Lying Down 140.00 mm[Hg] - Lying Down 20173 101 58354 3 97.70 Forehead Scan 86348 101 70030 1 254.10 NI 69.00/ min 20342 101 46478 9 72.00 mm[Hg] - Sitting 142.00 mm[Hg] - Sitting 97.70 Tympanic 18.00/min 71212 101 55362 3 72.00 mm[Hg] - Lying Down 142.00 mm[Hg] - Lying Down 70806 102 96587 8 68.00 mm[Hg] - Lying Down 152.00 mm[Hg] - Lying Down 40837 103 67207 5 74.00 mm[Hg] - Sitting 158.00 mm[Hg] - Sitting 68313 104 88797 9 78.00 mm[Hg] - Sitting 144.00 mm[Hg] - Sitting 35998 105 03120 5 68.00 mm[Hg] - Sitting 138.00 mm[Hg] - Sitting 35229 106 23524 1 70.00 mm[Hg] - Sitting 138.00 mm[Hg] [...]
--- OUTSIDE RECORDS SUMMARY | 2024-07-26 11:21 | External Medical Summary | Continuity Of Care Document ---
Author Name Unknown Address [address] [place] [address] [facility] () Care Team Providers Care Thiokol Operator Name Role Phone DO Pritchett Amy Primary Care Provider [phone] Allergies Allergy Reaction Start Date End Date Status AMINOGLYCOSIDES Active CIPRO Active GENTAMICIN Active NSAIDS (NON-STEROIDAL ANTI-INFLAMMATORY DRUG) 0 Active IBUPROFEN Active QUINOLONES Active VALIUM Active Medications Medication Instructions Dosage Start Date End Date Status Order Date Drug Code Frequency Route of Admin Diagnosis Code Substitutions Allowed Spikevax [id number](1 2y up)(PF) 50 mcg/0.5 mL intramuscul ar suspension [COVID [id number](12 up)(andu)(P F)] 0.5mL Intramuscular 1 time Monitory 15 Minutes post injection for adverse effects; record site/temp For COVID 19 PREVENTION 0.5mL 01/02 Inactiv e 2023 47687 83763 4 1 time Intram uscula r False [facility] - Nurse initials indicate verificatio n that [id number] vaccine was administere d by [facility] Representat jno 1 Intramuscular 1 time ( Indicate vaccine type) For vaccine 1 05/03 Inactiv e 2023 1 time Intram uscula r False Lisinopril 40 mg tablet [generic] TAKE ONE (1) TABLET BY MOUTH IN THE MORNING. For DX- HTN 1 2023 Active 2023 98416 64452 1 Once daily By Mouth False Tizanidine 2 mg tablet [generic] TAKE ONE (1) TABLET BY MOUTH ONCE DAILY For MUSCLE SPASM 1 2023 Active 2023 40418 08553 0 Once daily By Mouth M62.838 False Tamsulosin 0.4 mg capsule [generic] TAKE (1) CAPSULE BY MOUTH AT BEDTIME For SPASMS 1 2023 Active 2023 12978 97935 0 Once daily By Mouth False Aspirin 81 mg tablet Once daily 1 TABLET BY MOUTH IN THE MORNING For DX- CAD DO NOT CRUSH, CHEW OR BREAK 81 mg 06/12 Inactiv e 2023 Once daily By Mouth False Baclofen 20 mg tablet [generic] 20 mg By Mouth 4 times a day For DX- MUSCLE SPASMS 20 mg 12/12 Inactiv e 2023 38990 88520 1 4 times a day By Mouth False Calcium citrate 250 mg tablet Once daily 4 TABLET BY MOUTH For DX- SUPPLEMENT 250 mg calci 12/12 Inactiv e 2023 Once daily By Mouth False Co Q-10 100 mg capsule 100 mg By Mouth Once daily For DX- SUPPLEMENT 100 mg 06/20 Inactiv e 2023 12965 71403 5 Once daily By Mouth False Furosemide 20 mg tablet [generic] 20 mg By Mouth Once daily For DX-CHF 20 mg 12/12 Inactiv e 2023 56667 56376 0 Once daily By Mouth False Gabapentin 300 mg capsule [generic] 300 mg By Mouth 3 times a day For DX- NEUROPATHY 300 mg 12/12 Inactiv e 2023 42140 82506 4 3 times a day By Mouth False Loratadine 10 mg tablet [generic] 10 mg By Mouth Once daily For DX- ALLERGIES 10 mg 2023 Active 2023 28570 30838 1 Once daily By Mouth False Miralax 17 gram/dose oral powder 17 gram/dose By Mouth IN THE MORNING Mix 1 TABLESPOON IN 8 OZ OF FLUID HOLD FOR LOOSE STOOLS For DX- CONSTIPATION 17 gram/do se 12/12 Inactiv e 2023 20406 29720 0 Once daily By Mouth False Paroxetine 30 mg tablet [generic] 30 mg By Mouth Once daily For DX- DEPRESSION 30 mg 2023 00/00 /0000 Active 2023 86865 17450 3 Once daily By Mouth False Potassium citrate ER 15 mEq (1,620 mg) tablet,exte nded release [generic] 15 mEq By Mouth 3 times a day For DX- SUPPLEMENT/DI URETIC USE/ HYPOCITRAUIRA DO NOT CRUSH 15 mEq 12/12 Inactiv e 2023 65666 06524 1 3 times a day By Mouth [...] For DX- DANDRUFF 12/12 Inactiv e 2023 94982 45062 4 3 times a week Topica l False Acetaminoph en 325 mg tablet [generic] TAKE 2 TABS (650MG) BY MOUTH EVERY 4 HOURS NEEDED FOR TEMP >100 NOT TO EXCEED 3GM/24HRS TAKE 2 TABS (650MG) BY MOUTH EVERY 4 HOURS NEEDED FOR TEMP >100 NOT TO EXCEED 3GM/24HRS For DX-FEVER 2 12/12 Inactiv e 2023 77873 09762 0 By Mouth False MILK OF MAGNESIA ADMINISTER 30 ML BY MOUTH ONCE DAILY NEEDED FOR CONSTIPATION X3 DAYS WITH NO BM. For DX- CONSTIPATION 30ML 12/12 Inactiv e 2023 23310 23511 9 By Mouth False Enema Disposable 19 gram-7 gram/118 mL ADMINISTER ONE ENEMA RECTALLY ONCE DAILY NEEDED FOR CONSTIPATION ON DAY 6 OF NO BM For DX- CONSTIPATION 12/12 Inactiv e 2023 08020 88822 1 Rectal False TUMS EXTRA STR 750MG TAKE (1) TABLET BY MOUTH THREE TIMES DAILY NEEDED FOR INDIGESTION For DX- INDIGESTION 1 12/12 Inactiv e 2023 53121 52155 8 By Mouth False Vitamin D3 25 [...] CONSTIPATION 10 mg 12/12 Inactiv e 2023 74276 47076 1 Rectal False Melatonin 3 mg tablet [generic] 3 mg By Mouth As Needed For DX-INSOMMIA 3 mg 12/12 Inactiv e 2023 68735 27326 8 By Mouth False Hydrocortis one 1 % topical cream [generic] 1 % Topical As Needed For DX- PAIN 1 % 12/12 Inactiv e 2023 60494 94115 1 Topica l False HYDROCORTIS ONE/PARMOXI NE [...] 5-10 50 mg 12/20 Inactiv e 2023 62429 26111 0 Every 4 hours as needed By Mouth False Tylenol 325 mg tablet 325 mg By Mouth Every 4 hours as needed For DX- PAIN PRN FOR MILD PAIN, DO NOT EXCEED 3000MG APAP/24 HOURS 325 mg 12/20 Inactiv e 2023 52327 09323 0 Every 4 hours as needed By Mouth False Baclofen 20 mg tablet [generic] 20 mg By Mouth 4 times a day For MUSCLE SPASMS 20 mg 12/20 Inactiv e 2023 24239 71060 1 4 times a day By Mouth False Calcium citrate 250 mg tablet [generic] Once daily TAKE 4 TABLETS (1000MG) BY MOUTH For SUPPLEMENT 1000 MG 06/26 Inactiv e 2023 11256 46096 6 Once daily By Mouth False Dulcolax (bisacodyl) 10 mg rectal suppository 10 mg Rectal Once daily For CONSTIPATION *MAY HOLD FOR LOOSE STOOLS* 10 mg 2023 Active 2023 29218 20184 1 Once daily Rectal False Gabapentin 300 mg capsule [generic] 300 mg By Mouth 3 times a day For NEUROPATHY 300 mg 2023 Active 2023 90706 52231 4 3 times a day By Mouth False Potassium citrate ER 15 mEq (1,620 mg) tablet,exte nded release [generic] 15 mEq By Mouth 3 times a day For SUPPLEMENT/DI URETIC USE/HYPOCITRA URIA 15 mEq 06/11 Inactiv e 2023 78928 27705 1 3 times a day By Mouth False Potassium chloride ER 20 mEq tablet,exte nded release [generic] 20 mEq By Mouth 3 times a day *DO NOT CRUSH, CHEW OR BREAK* For SUPPLEMENT 20 mEq 12/18 Inactiv e 2023 82184 51356 1 3 times a day By Mouth False Tizanidine 4 mg tablet [generic] 4 mg By Mouth Once daily For MUSCLE SPASMS 4 mg 2023 Active 2023 20090 30203 0 Once daily By Mouth False Tylenol 325 mg tablet 2 tabs By Mouth Every 4 hours as needed For Fever >100 DO NOT EXCEED 3000 MG APAP/24 Hours 2 tabs 12/20 Inactiv e 2023 10910 95343 0 Every 4 hours as needed By Mouth False Dulcolax (bisacodyl) 10 mg rectal suppository Daily as needed For Constipation 1 sup 12/20 Inactiv e 2023 54677 37795 1 Daily as needed Rectal False Fleet Enema 19 gram-7 gram/118 mL 1 Rectal Daily as neededFor Constipation 1 12/20 Inactiv e 2023 11482 15799 6 Daily as needed Rectal False Milk of Magnesia 400 mg/5 mL oral suspension [Magnesium hydroxide] PRN 30ml By Mouth Daily as needed for constipation one time daily if no BM, on day 4 of no BM (PRN refer to instructions) For Constipation For Constipatioin 30ml 12/20 Inactiv e 2023 07242 75576 6 1 time By Mouth False Melatonin 3 mg tablet [generic] 3 mg By Mouth Once daily As Needed For INSOMNIA 3 mg 12/20 Inactiv e 2023 52531 09981 8 Once daily By Mouth False Hydrocortis one 1 % topical cream [generic] 1 % Rectal Four times daily as needed For hemorroid pain 1 % 12/20 Inactiv e 2023 83743 30379 1 Four times daily as needed Rectal False X-STGH ANTACID 750MG CHEW TAKE (1) TABLET BY MOUTH THREE TIMES DAILY NEEDED FOR INDIGESTION 12/20 Inactiv e 2023 39538 95920 4 Three times daily as needed Saline Mist 0.65 % nasal spray aerosol 0.65 % Nares Four times daily as needed For DRYNESS 0.65 % 12/20 Inactiv e 2023 05923 95815 8 Four times daily as needed Nares False Vicks Vaporub 4.7 %-1.2 %-2.6 % topical ointment Apply topically to chest Three times daily as needed For CONGESTION 4.7-1.2 -2.6 12/20 Inactiv e 2023 17830 66498 1 Three times daily as needed Topica l False VITAMIN D3 2000U CAP TAKE ONE (1) CAPSULE BY MOUTH DAILY* DO NOT CRUSH, CHEW OR BREAK* For Supplement 1 capsule 12/19 Inactiv e 2023 70600 51405 0 Once daily By Mouth False Potassium chloride ER 20 mEq tablet,exte nded release(par t/cryst) [generic] TAKE (1) TABLET BY MOUTH THREE TIMES DAILY (MORNING, AFTERNOON, EVENING)*DO NOT CRUSH, CHEW, OR BREAK* For SUPPLEMENT 20 MEQ 06/11 Inactiv e 2023 77863 68241 5 3 times a day By Mouth False Aspirin 81 mg tablet,camron yed release [generic] TAKE ONE (1) TABLET BY MOUTH ONCE DAILY*DO NOT CRUSH, CHEW OR BREAK* For CAD 81 MG 12/22 Inactiv e 2023 43637 48834 0 Once daily By Mouth False Furosemide 20 mg tablet [generic] TAKE 1 AND 1/2 TABLETS (30MG) BY MOUTH ONCE DAILY For CHF 30mg 2023 Active 2023 26574 87089 1 Once daily By Mouth False Polyethylen e glycol 3350 17 gram/dose oral powder [generic] MIX 17 GRAMS (1 CAPFUL) IN 60Z OF LIQUID AND DRINK BY MOUTH ONCE DAILY *HOLD FOR LOOSE STOOLS* For constipation 17 g 2023 Active 2023 52240 68453 3 Once daily By Mouth False Vitamin D3 50 mcg (2,000 unit) capsule Once daily TAKE ONE (1) CAPSULE BY MOUTH DAILY* DO NOT CRUSH, CHEW OR BREAK* For Supplement 1 capsule 02/07 Inactiv e 2023 24744 09378 2 Once daily By Mouth False Fleet Enema 19 gram-7 gram/118 mL 1 Rectal Daily as neededFor Constipation 1 2023 0000 Active 2023 29835 81670 6 Daily as needed Rectal False Tums E-X 300 mg (as calcium carbonate 750 mg) chewable tablet 1 tab By Mouth TAKE (1) TABLET BY MOUTH THREE TIMES DAILY NEEDED FOR INDIGESTION 1 tab 202300 /0000 Active 2023 25768 24489 1 Three times daily as needed By Mouth False Tylenol 325 mg tablet 2 tabs By Mouth Every 4 hours as needed For Fever >100 DO NOT EXCEED 3000 MG APAP/24 Hours 2 tabs 202300 /0000 Active 2023 90006 22291 0 Every 4 hours as needed By Mouth False Vicks Vaporub 4.7 %-1.2 %-2.6 % topical ointment Apply topically to chest Three times daily as needed For CONGESTION topical 202300 Active 2023 07705 12349 1 Three times daily as needed Topica l False Tylenol 325 mg tablet 2 tabs By Mouth Every 4 hours as needed For DX- PAIN PRN FOR MILD PAIN, DO NOT EXCEED 3000MG APAP/24 HOURS 2 tabs 202300 Active 2023 55768 22943 0 Every 4 hours as needed By Mouth False Tramadol 50 mg tablet [generic] 1 tab By Mouth Every 4 hours as needed For DX- PAIN 5-10 1 tab 03/10 Inactiv e 2023 85592 25488 0 Every 4 hours as needed By Mouth False Saline Mist 0.65 % nasal spray aerosol 2 sprays Nares Four times daily as needed For DRYNESS 2 sprays 202300 / Active 2023 73272 87304 8 Four times daily as needed Nares False Dulcolax (bisacodyl) 10 mg rectal suppository Daily as needed For Constipation 1 sup 202300 / Active 2023 45315 97867 1 Daily as needed Rectal False Hydrocortis one-pramoxi ne 1 %-1 % rectal cream [generic] 1 mague Rectal Four times daily as needed For hemorroid pain 1 mague 202300 /0000 Active 2023 76471 91360 4 Four times daily as needed Rectal False Melatonin 3 mg tablet [generic] 1 tab By Mouth At bedtime as needed For INSOMNIA 1 tab 12/24 Inactiv e 2023 75382 61388 8 At bedtime as needed By Mouth False Milk of Magnesia 400 mg/5 mL oral suspension 30ml By Mouth Daily as needed Daily as needed for constipation one time daily if no BM, on day 4 of no BM (PRN refer to instructions) For Constipation For Constipatioin 30ml 2023 Active 2023 98306 86530 2 Daily as needed By Mouth False Baclofen 20 mg tablet [generic] 20 mg By Mouth 4 times a day For MUSCLE SPASMS 20 mg 2023 Active 2023 92704 54641 1 4 times a day By Mouth False Melatonin 3 mg tablet [generic] 1 tab By Mouth At bedtime as needed For INSOMNIA 1 tab 2023 Active 2023 43166 67800 8 At bedtime as needed By Mouth False Bactrim DS 800 mg-160 mg tablet 1 tab By Mouth Twice daily For URINARY TRACT INFECTION, SITE NOT SPECIFIED 1 tab 01/06 Inactiv e 2023 41143 37235 1 Twice daily By Mouth N39.0 False Cefdinir 300 mg capsule [generic] 300 mg By Mouth Twice daily For UTI 300 mg 01/07 Inactiv e 2023 14355 32641 0 Twice daily By Mouth False Cefdinir 300 mg capsule [generic] 300 mg By Mouth Twice daily For UTI 300 mg 01/17 Inactiv e 2023 96325 55230 0 Twice daily By Mouth False Zyrtec 10 mg tablet 10 mg By Mouth Once daily For sinus congestion 10 mg 01/22 Inactiv e 2023 41790 03407 0 Once daily By Mouth False Tobramycin 0.3 %-dexametha sone 0.1 % eye drops,suspe nsion [generic] 0.3-0.1 % Left Eye 4 times a day For eye infection 0.3-0.1 % 02/05 Inactiv e 2023 18250 84924 5 4 times a day Left Eye False Fluconazole 150 mg tablet [generic] 150 mg By Mouth 1 time For yeast infection 150 mg 02/15 Inactiv e 2023 73465 18976 2 1 time By Mouth False Tramadol 50 mg tablet [generic] 1 tab By Mouth Every 4 hours as needed For DX- PAIN 5-10 1 tab 2023 00/00 /0000 Active 2023 23918 62056 0 Every 4 hours as needed By Mouth False Tobramycin 0.3 %-dexametha sone 0.1 % eye drops,suspe nsion [generic] 1 drop Left Eye 4 times a day For Inflammation of left eye 1 drop 05/08 Inactiv e 2023 75973 64898 5 4 times a day Left Eye False Voltaren Arthritis Pain 1 % topical gel 2 gm Topical Twice daily to rigth shoulder for 2 weeks For pain 2 gm 05/08 Inactiv e 2023 63797 46141 1 Twice daily Topica l False Chlorthalid one 25 mg tablet [generic] 12.5mg By Mouth Once daily For HTN 12.5mg 05/06 Inactiv e 2023 63479 48994 0 Once daily By Mouth False Chlorthalid one 25 mg tablet [generic] 12.5mg By Mouth Once daily For HTN 12.5mg 05/07 Inactiv e 2023 47145 06643 0 Once daily By Mouth False Chlorthalid one 25 mg tablet [generic] 05/07 Inactiv e 2023 28642 46140 0 Chlorthalid one 25 mg tablet [generic] 12.5mg By Mouth Once daily For HTN 12.5mg 06/26 Inactiv e 2023 44193 95352 0 Once daily By Mouth False Norvasc 5 mg tablet 5mg By Mouth Once daily, hold medication if systolic is less than 90 For HYPERTENSIVE HEART DISEASE WITHOUT HEART FAILURE 5mg 06/03 Inactiv e 2023 85200 94699 1 Once daily By Mouth I11.9 False Norvasc 5 mg tablet 5mg By Mouth Once daily, hold medication if systolic is less than 90 For HYPERTENSIVE HEART DISEASE WITHOUT HEART FAILURE 5mg 06/03 Inactiv e 2023 27744 28763 1 Once daily By Mouth I11.9 False Norvasc 5 mg tablet 5mg By Mouth Once daily, hold medication if systolic is less than 90 For HYPERTENSIVE HEART DISEASE WITHOUT HEART FAILURE 5mg 06/26 Inactiv e 2023 65254 12954 1 Once daily By Mouth I11.9 False [...] 10 mg 2023 00/00 /0000 Active 2023 94128 95639 1 Once daily By Mouth False DISCONTINUE [...] CAD 81 mg 06/14 Inactiv e 2023 07967 23310 9 Once daily By Mouth False Aspirin 81 mg tablet,camron yed release [generic] 06/14 Inactiv e 2023 55246 91344 9 Aspirin 81 mg tablet,camron yed release [generic] 81 mg By Mouth Once daily Do not crush, chew, or break For CAD 81 mg 06/154 Inactiv e 2023 70392 56269 9 Once daily By Mouth False Cefpodoxime 200 mg tablet [generic] 200mg By Mouth Twice daily For UTI 200mg 07/04 Inactiv e 2023 20185 58919 0 Twice daily By Mouth False Calcium citrate 250 mg tablet [generic] 06/26 Inactiv e 2023 83854 53122 6 Calcium citrate 250 mg tablet [generic] Once daily TAKE 4 TABLETS (1000MG) BY MOUTH For SUPPLEMENT 500 MG 2023 Active 2023 97331 63768 6 Once daily By Mouth False Norvasc 5 mg tablet 7.5 mg By Mouth Once daily Hold medication if SBP <90 For HYPERTENSIVE HEART DISEASE WITHOUT HEART FAILURE 7.5 mg 06/30 Inactiv e 2023 70945 33568 1 Once daily By Mouth I11.9 False Norvasc 5 mg tablet 7.5 mg By Mouth Once daily Hold medication if SBP <90 For HYPERTENSIVE HEART DISEASE WITHOUT HEART FAILURE 7.5 mg 07/06 Inactiv e 2023 76971 03494 1 Once daily By Mouth I11.9 False Simethicone 125 mg capsule [generic] 2 capule By Mouth Twice daily as needed For bloating/gas pain 2 capule 2023 Active 2023 00946 16402 0 Twice daily as needed By Mouth False Cepacol Sore Throat (benzocaine -menthol) 15 mg-2.6 mg lozenges 2 lozenges By Mouth Every 6 hours as needed For sore throat 2 lozenge s 2023 Active 2023 13194 04589 6 Every 6 hours as needed By Mouth False Cefepime 1 gram solution for injection [generic] 1g Intramuscular Every 12 hours 1g intramuscular ly ever 12 hours For UTI 1g 07/06 Inactiv e 2023 00222 88490 4 Every 12 hours Intram uscula r False Cefepime 1 gram solution for injection [generic] 07/06 Inactiv e 2023 73172 54773 4 Cefepime 1 gram solution for injection [generic] 1g Intramuscular Every 12 hours 1g intramuscular ly ever 12 hours For UTI Reconstitute with 2.4 ML of NSS. 1g 07/08 Inactiv e 2023 25093 06346 4 Every 12 hours Intram uscula r False Norvasc 5 mg tablet 07/06 Inactiv e 2023 98359 24091 1 I11.9 Norvasc 5 mg tablet 7.5 mg By Mouth Once daily Hold medication if SBP <90 For HYPERTENSIVE HEART DISEASE WITHOUT HEART FAILURE 7.5 mg 2023 00 /0000 Active 2023 35580 92865 1 Once daily By Mouth I11.9 False Cefepime 1 gram solution for injection [generic] 07/08 Inactiv e 2023 79688 21571 4 Cefepime 1 gram solution for injection [generic] 1g Intramuscular Every 12 hours 1g intramuscular ly ever 12 hours For UTI Reconstitute with 2.4 ML of NSS. 1g 07/08 Inactiv e 2023 68173 34187 4 Every 12 hours Intram uscula r False Cefepime 1 gram solution for injection [generic] 07/08 Inactiv e 2023 88089 67684 4 Cefepime 1 gram solution for injection [generic] 1g Intramuscular Every 12 hours 1g intramuscular ly ever 12 hours For UTI Reconstitute with 2.4 ML of NSS. 1g 07/11 Inactiv e 2023 92972 46554 4 Every 12 hours Intram uscula r False Fleet Enema 19 gram-7 gram/118 mL 1 Rectal 1 time For constipation 1 07/16 Inactiv e 2024 27220 50227 6 1 time Rectal False Nystatin 100,000 unit/gram topical cream [generic] 100,000 unit Topical As Needed For DX- EXCORIATION 100,000 unit 12/12 Inactiv e 2023 72719 64049 5 Topica l False Vicks Vaporub 4.7 %-1.2 %-2.6 % topical ointment 4.7-1.2-2.6 Topical 3 times a day As Needed For DX- CONGESTION 4.7-1.2 -2.6 12/12 Inactiv e 2023 98840 99377 1 3 times a day Topica l False Ketoconazol e 2 % shampoo [generic] APPLY SHAMPOO TOPICALLY TO SCALP DURING HAIR WASHINGDX: ELVIA DERM OF SCALP For DX- ELVIA DERM OF SCALP 12/12 Inactiv e 2023 92084 73665 4 Topica l False THERA SILICONE SKIN GUARD Topical Twice daily 1 APPLICATION TOPICALLY IN THE MORNING AND AT BEDTIME TO SCROTUM For DX- PREVENTION 2023 0000 Active 2023 Twice daily Topica l False Selenium sulfide 2.5 % lotion [generic] 2.5 % Topical EVERY MONDAY, MONDAY AND MONDAY AFTER SHOWER For DANDRUFF 2.5 % 2023 00/00 /0000 Active 2023 93179 47259 4 3 times a week Topica l False Nystatin (bulk) 100 million unit powder [generic] 100 million Topical Twice daily as needed For EXOCORATION 100 million 12/20 Inactiv e 2023 71660 39199 1 Twice daily as needed Topica l False Ketoconazol e 2 % shampoo [generic] Once daily APPLY SHAMPOO TOPICALLY TO SCALP DURING HAIR WASHING ON SHOWER DAYS- , , MON For ELVIA DERM OF SCAP 2 % 2023 0000 /0000 Active 2023 07131 16268 4 Once daily Topica l False Nystatin 100,000 unit/gram topical cream [generic] 1 mague Topical Twice daily as needed For EXOCORATION 1 mague 06/05 Inactiv e 2023 93232 22538 5 Twice daily as needed Topica l False Nystatin 100,000 unit/gram topical powder [generic] 100,000 unit Topical Twice daily to scrotum with AM and PM care For Scrotal excoriation 100,000 unit 06/05 Inactiv e 2023 82663 70211 5 Twice daily Topica l False Problems [...] adjustment of urinary device 07/21/2023 Active Z79.01 long-term (current) use of anticoagulants 07/21 Active N31.9 [...] weight Temperature SpO2 Blood Sugar Pulse Respirations 24202 208 64084 9 82.00 mm[Hg] - Sitting 128.00 mm[Hg] - Sitting 42141 209 35066 2 78.00 mm[Hg] - Sitting 130.00 mm[Hg] - Sitting 97437 210 33856 6 80.00 mm[Hg] - Sitting 132.00 mm[Hg] - Sitting 78522 211 90479 5 78.00 mm[Hg] - Sitting 125.00 mm[Hg] - Sitting 56529 216 70014 1 254.10 NI 48399 216 89191 2 79.00 mm[Hg] - Sitting 157.00 mm[Hg] - Sitting 73 NI 254.10 NI 36.30 Tympanic 95.00 % 72.00/ min 16.00/min 93701 216 66266 4 98.80 Tympanic 80003 216 72739 2 78.00 mm[Hg] - Sitting 164.00 mm[Hg] - Sitting 26856 217 87954 3 98.20 Tympanic 87402 217 08286 5 73.00 mm[Hg] - Sitting 159.00 mm[Hg] - Sitting 90314 217 11286 9 98.40 Forehead Scan 77252 218 70566 3 97.90 Tympanic 55907 218 21148 5 77.00 mm[Hg] - Sitting 137.00 mm[Hg] - Sitting 01378 219 78843 0 97.70 Tympanic 54947 219 05287 6 97.60 Tympanic 55618 219 74307 4 76.00 mm[Hg] - Sitting 139.00 mm[Hg] - Sitting 83207 219 37165 4 97.80 Forehead Scan 70602 220 77533 9 97.90 Tympanic 87722 220 88997 9 76.00 mm[Hg] - Sitting 138.00 mm[Hg] - Sitting 96330 220 30547 6 98.10 Tympanic 63317 221 06439 5 67.00 mm[Hg] - Sitting 142.00 mm[Hg] - Sitting 21795 221 31013 8 98.20 Tympanic 17650 221 24776 0 98.30 Tympanic 18604 222 96796 7 98.20 Tympanic 66399 222 50148 8 97.90 Tympanic 40512 223 80861 3 98.20 Tympanic 94356 223 08050 3 98.00 Tympanic 57790 224 38324 0 59.00 mm[Hg] - Sitting 111.00 mm[Hg] - Sitting 98.40 Forehead Scan 95.00 % 56.00/ min 18.00/min 22457 224 84377 9 98.20 Forehead Scan 52891 224 18309 3 97.90 Tympanic 43122 225 29456 4 98.20 Tympanic 74374 225 25981 8 97.50 Forehead Scan 61006 228 19579 0 55.00 mm[Hg] - Sitting 118.00 mm[Hg] - Sitting 98.40 Tympanic 69.00/ min 92912 229 62011 8 78.00 mm[Hg] - Sitting 152.00 mm[Hg] - Sitting 59713 230 62185 0 62.00 mm[Hg] - Sitting 122.00 mm[Hg] - Sitting 16017 231 43660 7 72.00 mm[Hg] - Lying Down 140.00 mm[Hg] - Lying Down 16478 101 04267 3 97.70 Forehead Scan 22176 101 57065 1 254.10 NI 69.00/ min 76815 101 09489 9 72.00 mm[Hg] - Sitting 142.00 mm[Hg] - Sitting 97.70 Tympanic 18.00/min 59986 101 45336 3 72.00 mm[Hg] - Lying Down 142.00 mm[Hg] - Lying Down 86675 102 44221 8 68.00 mm[Hg] - Lying Down 152.00 mm[Hg] - Lying Down 81747 103 44800 5 74.00 mm[Hg] - Sitting 158.00 mm[Hg] - Sitting 68874 104 26392 9 78.00 mm[Hg] - Sitting 144.00 mm[Hg] - Sitting 92818 105 39193 5 68.00 mm[Hg] - Sitting 138.00 mm[Hg] - Sitting 50487 106 98183 1 70.00 mm[Hg] - Sitting 138.00 mm[Hg] [...]
--- OUTSIDE RECORDS SUMMARY | 2024-07-26 11:21 | External Medical Summary | Continuity Of Care Document ---
Author Name Unknown Address [address] [place] [address] Organization [facility] () Care Team Providers Care Survey Data Technician Name Role Phone DO Pritchett Amy Primary Care Provider [phone] Allergies Allergy Reaction Start Date End Date Status AMINOGLYCOSIDES Active CIPRO Active GENTAMICIN Active NSAIDS (NON-STEROIDAL ANTI-INFLAMMATORY DRUG) 0 Active IBUPROFEN Active QUINOLONES Active VALIUM Active Medications Medication Instructions Dosage Start Date End Date Status Order Date Drug Code Frequency Route of Admin Diagnosis Code Substitutions Allowed Spikevax [id number](1 2y up)(PF) 50 mcg/0.5 mL intramuscul ar suspension [COVID [id number](12 up)(andu)(P F)] 0.5mL Intramuscular 1 time Monitory 15 Minutes post injection for adverse effects; record site/temp For COVID 19 PREVENTION 0.5mL 01/02 Inactiv e 2023 87585 01944 4 1 time Intram uscula r False [facility] - Nurse initials indicate verificatio n that [id number] vaccine was administere d by [facility] Representat jon 1 Intramuscular 1 time ( Indicate vaccine type) For vaccine 1 05/03 Inactiv e 2023 1 time Intram uscula r False Lisinopril 40 mg tablet [generic] TAKE ONE (1) TABLET BY MOUTH IN THE MORNING. For DX- HTN 1 2023 Active 2023 59143 08608 1 Once daily By Mouth False Tizanidine 2 mg tablet [generic] TAKE ONE (1) TABLET BY MOUTH ONCE DAILY For MUSCLE SPASM 1 2023 Active 2023 43453 88075 0 Once daily By Mouth M62.838 False Tamsulosin 0.4 mg capsule [generic] TAKE (1) CAPSULE BY MOUTH AT BEDTIME For SPASMS 1 2023 Active 2023 96704 84365 0 Once daily By Mouth False Aspirin 81 mg tablet Once daily 1 TABLET BY MOUTH IN THE MORNING For DX- CAD DO NOT CRUSH, CHEW OR BREAK 81 mg 06/12 Inactiv e 2023 Once daily By Mouth False Baclofen 20 mg tablet [generic] 20 mg By Mouth 4 times a day For DX- MUSCLE SPASMS 20 mg 12/12 Inactiv e 2023 74702 53953 1 4 times a day By Mouth False Calcium citrate 250 mg tablet Once daily 4 TABLET BY MOUTH For DX- SUPPLEMENT 250 mg calci 12/12 Inactiv e 2023 Once daily By Mouth False Co Q-10 100 mg capsule 100 mg By Mouth Once daily For DX- SUPPLEMENT 100 mg 06/20 Inactiv e 2023 12822 30169 5 Once daily By Mouth False Furosemide 20 mg tablet [generic] 20 mg By Mouth Once daily For DX-CHF 20 mg 12/12 Inactiv e 2023 43707 44844 0 Once daily By Mouth False Gabapentin 300 mg capsule [generic] 300 mg By Mouth 3 times a day For DX- NEUROPATHY 300 mg 12/12 Inactiv e 2023 61609 58286 4 3 times a day By Mouth False Loratadine 10 mg tablet [generic] 10 mg By Mouth Once daily For DX- ALLERGIES 10 mg 2023 Active 2023 35301 88868 1 Once daily By Mouth False Miralax 17 gram/dose oral powder 17 gram/dose By Mouth IN THE MORNING Mix 1 TABLESPOON IN 8 OZ OF FLUID HOLD FOR LOOSE STOOLS For DX- CONSTIPATION 17 gram/do se 12/12 Inactiv e 2023 55900 34592 0 Once daily By Mouth False Paroxetine 30 mg tablet [generic] 30 mg By Mouth Once daily For DX- DEPRESSION 30 mg 2023 00/00 /0000 Active 2023 03465 40167 3 Once daily By Mouth False Potassium citrate ER 15 mEq (1,620 mg) tablet,exte nded release [generic] 15 mEq By Mouth 3 times a day For DX- SUPPLEMENT/DI URETIC USE/ HYPOCITRAUIRA DO NOT CRUSH 15 mEq 12/12 Inactiv e 2023 67960 23480 1 3 times a day By Mouth [...] For DX- DANDRUFF 12/12 Inactiv e 2023 35452 42521 4 3 times a week Topica l False Acetaminoph en 325 mg tablet [generic] TAKE 2 TABS (650MG) BY MOUTH EVERY 4 HOURS NEEDED FOR TEMP >100 NOT TO EXCEED 3GM/24HRS TAKE 2 TABS (650MG) BY MOUTH EVERY 4 HOURS NEEDED FOR TEMP >100 NOT TO EXCEED 3GM/24HRS For DX-FEVER 2 12/12 Inactiv e 2023 64124 45187 0 By Mouth False MILK OF MAGNESIA ADMINISTER 30 ML BY MOUTH ONCE DAILY NEEDED FOR CONSTIPATION X3 DAYS WITH NO BM. For DX- CONSTIPATION 30ML 12/12 Inactiv e 2023 09278 64124 9 By Mouth False Enema Disposable 19 gram-7 gram/118 mL ADMINISTER ONE ENEMA RECTALLY ONCE DAILY NEEDED FOR CONSTIPATION ON DAY 6 OF NO BM For DX- CONSTIPATION 12/12 Inactiv e 2023 33050 87665 1 Rectal False TUMS EXTRA STR 750MG TAKE (1) TABLET BY MOUTH THREE TIMES DAILY NEEDED FOR INDIGESTION For DX- INDIGESTION 1 12/12 Inactiv e 2023 98578 50199 8 By Mouth False Vitamin D3 25 [...] CONSTIPATION 10 mg 12/12 Inactiv e 2023 55114 62891 1 Rectal False Melatonin 3 mg tablet [generic] 3 mg By Mouth As Needed For DX-INSOMMIA 3 mg 12/12 Inactiv e 2023 47824 88612 8 By Mouth False Hydrocortis one 1 % topical cream [generic] 1 % Topical As Needed For DX- PAIN 1 % 12/12 Inactiv e 2023 09545 00820 1 Topica l False HYDROCORTIS ONE/PARMOXI NE [...] 5-10 50 mg 12/20 Inactiv e 2023 83123 73069 0 Every 4 hours as needed By Mouth False Tylenol 325 mg tablet 325 mg By Mouth Every 4 hours as needed For DX- PAIN PRN FOR MILD PAIN, DO NOT EXCEED 3000MG APAP/24 HOURS 325 mg 12/20 Inactiv e 2023 90692 37289 0 Every 4 hours as needed By Mouth False Baclofen 20 mg tablet [generic] 20 mg By Mouth 4 times a day For MUSCLE SPASMS 20 mg 12/20 Inactiv e 2023 91661 71912 1 4 times a day By Mouth False Calcium citrate 250 mg tablet [generic] Once daily TAKE 4 TABLETS (1000MG) BY MOUTH For SUPPLEMENT 1000 MG 06/26 Inactiv e 2023 14582 59117 6 Once daily By Mouth False Dulcolax (bisacodyl) 10 mg rectal suppository 10 mg Rectal Once daily For CONSTIPATION *MAY HOLD FOR LOOSE STOOLS* 10 mg 2023 Active 2023 72550 68938 1 Once daily Rectal False Gabapentin 300 mg capsule [generic] 300 mg By Mouth 3 times a day For NEUROPATHY 300 mg 2023 Active 2023 05718 30345 4 3 times a day By Mouth False Potassium citrate ER 15 mEq (1,620 mg) tablet,exte nded release [generic] 15 mEq By Mouth 3 times a day For SUPPLEMENT/DI URETIC USE/HYPOCITRA URIA 15 mEq 06/11 Inactiv e 2023 30548 35826 1 3 times a day By Mouth False Potassium chloride ER 20 mEq tablet,exte nded release [generic] 20 mEq By Mouth 3 times a day *DO NOT CRUSH, CHEW OR BREAK* For SUPPLEMENT 20 mEq 12/18 Inactiv e 2023 50774 91436 1 3 times a day By Mouth False Tizanidine 4 mg tablet [generic] 4 mg By Mouth Once daily For MUSCLE SPASMS 4 mg 2023 Active 2023 69118 19307 0 Once daily By Mouth False Tylenol 325 mg tablet 2 tabs By Mouth Every 4 hours as needed For Fever >100 DO NOT EXCEED 3000 MG APAP/24 Hours 2 tabs 12/20 Inactiv e 2023 88184 96310 0 Every 4 hours as needed By Mouth False Dulcolax (bisacodyl) 10 mg rectal suppository Daily as needed For Constipation 1 sup 12/20 Inactiv e 2023 62689 27978 1 Daily as needed Rectal False Fleet Enema 19 gram-7 gram/118 mL 1 Rectal Daily as neededFor Constipation 1 12/20 Inactiv e 2023 68593 02589 6 Daily as needed Rectal False Milk of Magnesia 400 mg/5 mL oral suspension [Magnesium hydroxide] PRN 30ml By Mouth Daily as needed for constipation one time daily if no BM, on day 4 of no BM (PRN refer to instructions) For Constipation For Constipatioin 30ml 12/20 Inactiv e 2023 00120 91643 6 1 time By Mouth False Problems [...] weight Temperature SpO2 Blood Sugar Pulse Respirations 49284 206 32012 9 76.00 mm[Hg] - Sitting 132.00 mm[Hg] - Sitting 36462 208 87196 9 82.00 mm[Hg] - Sitting 128.00 mm[Hg] - Sitting 47359 209 63813 2 78.00 mm[Hg] - Sitting 130.00 mm[Hg] - Sitting 82001 210 53102 6 80.00 mm[Hg] - Sitting 132.00 mm[Hg] - Sitting 73077 211 92985 5 78.00 mm[Hg] - Sitting 125.00 mm[Hg] - Sitting 21343 216 26777 1 [place] [address] 216 47591 2 79.00 mm[Hg] - Sitting 157.00 mm[Hg] - Sitting 73 NI 254.10 NI 36.30 Tympanic 95.00 % 72.00/ min 16.00/min 91888 216 38424 4 98.80 Tympanic 90989 216 88701 2 78.00 mm[Hg] - Sitting 164.00 mm[Hg] - Sitting 04937 217 87970 3 98.20 Tympanic 65676 217 86728 5 73.00 mm[Hg] - Sitting 159.00 mm[Hg] - Sitting 40913 217 11320 9 98.40 Forehead Scan 97366 218 21006 3 97.90 Tympanic 96769 218 71512 5 77.00 mm[Hg] - Sitting 137.00 mm[Hg] - Sitting 06128 219 83472 0 97.70 Tympanic 83141 219 26957 6 97.60 Tympanic 57112 219 40388 4 76.00 mm[Hg] - Sitting 139.00 mm[Hg] - Sitting 17045 219 08335 4 97.80 Forehead Scan 36076 220 93718 9 97.90 Tympanic 22815 220 76297 9 76.00 mm[Hg] - Sitting 138.00 mm[Hg] - Sitting 69291 220 60806 6 98.10 Tympanic 26251 221 51061 5 67.00 mm[Hg] - Sitting 142.00 mm[Hg] - Sitting 64741 221 71697 8 98.20 Tympanic 72776 221 93395 0 98.30 Tympanic 06190 222 64949 7 98.20 Tympanic 55163 222 47795 8 97.90 Tympanic 92260 223 64345 3 98.20 Tympanic 85548 223 56508 3 98.00 Tympanic 66362 224 37209 0 59.00 mm[Hg] - Sitting 111.00 mm[Hg] - Sitting 98.40 Forehead Scan 95.00 % 56.00/ min 18.00/min 77263 224 62064 9 98.20 Forehead Scan 74706 224 29952 3 97.90 Tympanic 82558 225 24381 4 98.20 Tympanic 84434 225 52028 8 97.50 Forehead Scan 62361 228 04751 0 55.00 mm[Hg] - Sitting 118.00 mm[Hg] - Sitting 98.40 Tympanic 69.00/ min 37559 229 27944 8 78.00 mm[Hg] - Sitting 152.00 mm[Hg] - Sitting 91829 230 03800 0 62.00 mm[Hg] - Sitting 122.00 mm[Hg] - Sitting 90642 231 89477 7 72.00 mm[Hg] - Lying Down 140.00 mm[Hg] - Lying Down 95104 101 83295 3 97.70 Forehead Scan 81854 101 69312 1 254.10 NI 69.00/ min 27556 101 40651 9 72.00 mm[Hg] - Sitting 142.00 mm[Hg] - Sitting 97.70 Tympanic 18.00/min 03823 101 20191 3 72.00 mm[Hg] - Lying Down 142.00 mm[Hg] - Lying Down 69915 102 36280 8 68.00 mm[Hg] - Lying Down 152.00 mm[Hg] - Lying Down 93820 103 91311 5 74.00 mm[Hg] - Sitting 158.00 mm[Hg] - Sitting 79678 104 58490 9 78.00 mm[Hg] - Sitting 144.00 mm[Hg] - Sitting 55030 105 15494 5 68.00 mm[Hg] - Sitting 138.00 mm[Hg] [...]
--- OUTSIDE RECORDS SUMMARY | 2024-07-26 11:22 | External Medical Summary | Continuity Of Care Document ---
Author Name Unknown Address [address] [place] [address] Organization [facility] () Care Team Providers Care Inventory Planner Name Role Phone DO Pritchett Amy Primary Care Provider [phone] Allergies Allergy Reaction Start Date End Date Status AMINOGLYCOSIDES Active CIPRO Active GENTAMICIN Active NSAIDS (NON-STEROIDAL ANTI-INFLAMMATORY DRUG) 0 Active IBUPROFEN Active QUINOLONES Active VALIUM Active Medications Medication Instructions Dosage Start Date End Date Status Order Date Drug Code Frequency Route of Admin Diagnosis Code Substitutions Allowed Spikevax [id number](1 2y up)(PF) 50 mcg/0.5 mL intramuscul ar suspension [COVID tuo37-16(12 up)(andu)(P F)] 0.5mL Intramuscular 1 time Monitory 15 Minutes post injection for adverse effects; record site/temp For COVID 19 PREVENTION 0.5mL 01/02 Inactiv e 2023 45609 42743 4 1 time Intram uscula r False [facility] - Nurse initials indicate verificatio n that [id number] vaccine was administere d by [facility] Representat jon 1 Intramuscular 1 time ( Indicate vaccine type) For vaccine 1 05/03 Inactiv e 2023 1 time Intram uscula r False Lisinopril 40 mg tablet [generic] TAKE ONE (1) TABLET BY MOUTH IN THE MORNING. For DX- HTN 1 2023 Active 2023 56113 24347 1 Once daily By Mouth False Tizanidine 2 mg tablet [generic] TAKE ONE (1) TABLET BY MOUTH ONCE DAILY For MUSCLE SPASM 1 2023 Active 2023 26811 34635 0 Once daily By Mouth M62.838 False Tamsulosin 0.4 mg capsule [generic] TAKE (1) CAPSULE BY MOUTH AT BEDTIME For SPASMS 1 2023 Active 2023 66561 30096 0 Once daily By Mouth False Aspirin 81 mg tablet Once daily 1 TABLET BY MOUTH IN THE MORNING For DX- CAD DO NOT CRUSH, CHEW OR BREAK 81 mg 06/12 Inactiv e 2023 Once daily By Mouth False Baclofen 20 mg tablet [generic] 20 mg By Mouth 4 times a day For DX- MUSCLE SPASMS 20 mg 12/12 Inactiv e 2023 66132 93327 1 4 times a day By Mouth False Calcium citrate 250 mg tablet Once daily 4 TABLET BY MOUTH For DX- SUPPLEMENT 250 mg calci 12/12 Inactiv e 2023 Once daily By Mouth False Co Q-10 100 mg capsule 100 mg By Mouth Once daily For DX- SUPPLEMENT 100 mg 06/20 Inactiv e 2023 29715 86991 5 Once daily By Mouth False Furosemide 20 mg tablet [generic] 20 mg By Mouth Once daily For DX-CHF 20 mg 12/12 Inactiv e 2023 44001 50872 0 Once daily By Mouth False Gabapentin 300 mg capsule [generic] 300 mg By Mouth 3 times a day For DX- NEUROPATHY 300 mg 12/12 Inactiv e 2023 62192 60040 4 3 times a day By Mouth False Loratadine 10 mg tablet [generic] 10 mg By Mouth Once daily For DX- ALLERGIES 10 mg 2023 Active 2023 42833 35284 1 Once daily By Mouth False Miralax 17 gram/dose oral powder 17 gram/dose By Mouth IN THE MORNING Mix 1 TABLESPOON IN 8 OZ OF FLUID HOLD FOR LOOSE STOOLS For DX- CONSTIPATION 17 gram/do se 12/12 Inactiv e 2023 54424 24273 0 Once daily By Mouth False Paroxetine 30 mg tablet [generic] 30 mg By Mouth Once daily For DX- DEPRESSION 30 mg 2023 00/00 /0000 Active 2023 34676 76024 3 Once daily By Mouth False Potassium citrate ER 15 mEq (1,620 mg) tablet,exte nded release [generic] 15 mEq By Mouth 3 times a day For DX- SUPPLEMENT/DI URETIC USE/ HYPOCITRAUIRA DO NOT CRUSH 15 mEq 12/12 Inactiv e 2023 98993 07634 1 3 times a day By Mouth [...] For DX- DANDRUFF 12/12 Inactiv e 2023 92766 22143 4 3 times a week Topica l False Acetaminoph en 325 mg tablet [generic] TAKE 2 TABS (650MG) BY MOUTH EVERY 4 HOURS NEEDED FOR TEMP >100 NOT TO EXCEED 3GM/24HRS TAKE 2 TABS (650MG) BY MOUTH EVERY 4 HOURS NEEDED FOR TEMP >100 NOT TO EXCEED 3GM/24HRS For DX-FEVER 2 12/12 Inactiv e 2023 62901 52176 0 By Mouth False MILK OF MAGNESIA ADMINISTER 30 ML BY MOUTH ONCE DAILY NEEDED FOR CONSTIPATION X3 DAYS WITH NO BM. For DX- CONSTIPATION 30ML 12/12 Inactiv e 2023 75182 71785 9 By Mouth False Enema Disposable 19 gram-7 gram/118 mL ADMINISTER ONE ENEMA RECTALLY ONCE DAILY NEEDED FOR CONSTIPATION ON DAY 6 OF NO BM For DX- CONSTIPATION 12/12 Inactiv e 2023 30251 63924 1 Rectal False TUMS EXTRA STR 750MG TAKE (1) TABLET BY MOUTH THREE TIMES DAILY NEEDED FOR INDIGESTION For DX- INDIGESTION 1 12/12 Inactiv e 2023 19627 82000 8 By Mouth False Vitamin D3 25 [...] CONSTIPATION 10 mg 12/12 Inactiv e 2023 98145 11959 1 Rectal False Melatonin 3 mg tablet [generic] 3 mg By Mouth As Needed For DX-INSOMMIA 3 mg 12/12 Inactiv e 2023 40171 15824 8 By Mouth False Hydrocortis one 1 % topical cream [generic] 1 % Topical As Needed For DX- PAIN 1 % 12/12 Inactiv e 2023 68491 73216 1 Topica l False HYDROCORTIS ONE/PARMOXI NE [...] 5-10 50 mg 12/20 Inactiv e 2023 43590 47101 0 Every 4 hours as needed By Mouth False Tylenol 325 mg tablet 325 mg By Mouth Every 4 hours as needed For DX- PAIN PRN FOR MILD PAIN, DO NOT EXCEED 3000MG APAP/24 HOURS 325 mg 12/20 Inactiv e 2023 92536 81760 0 Every 4 hours as needed By Mouth False Baclofen 20 mg tablet [generic] 20 mg By Mouth 4 times a day For MUSCLE SPASMS 20 mg 12/20 Inactiv e 2023 37676 04136 1 4 times a day By Mouth False Calcium citrate 250 mg tablet [generic] Once daily TAKE 4 TABLETS (1000MG) BY MOUTH For SUPPLEMENT 1000 MG 06/26 Inactiv e 2023 72662 43144 6 Once daily By Mouth False Dulcolax (bisacodyl) 10 mg rectal suppository 10 mg Rectal Once daily For CONSTIPATION *MAY HOLD FOR LOOSE STOOLS* 10 mg 2023 Active 2023 01547 28137 1 Once daily Rectal False Gabapentin 300 mg capsule [generic] 300 mg By Mouth 3 times a day For NEUROPATHY 300 mg 2023 Active 2023 98327 20076 4 3 times a day By Mouth False Potassium citrate ER 15 mEq (1,620 mg) tablet,exte nded release [generic] 15 mEq By Mouth 3 times a day For SUPPLEMENT/DI URETIC USE/HYPOCITRA URIA 15 mEq 06/11 Inactiv e 2023 81650 14421 1 3 times a day By Mouth False Potassium chloride ER 20 mEq tablet,exte nded release [generic] 20 mEq By Mouth 3 times a day *DO NOT CRUSH, CHEW OR BREAK* For SUPPLEMENT 20 mEq 12/18 Inactiv e 2023 60271 90002 1 3 times a day By Mouth False Tizanidine 4 mg tablet [generic] 4 mg By Mouth Once daily For MUSCLE SPASMS 4 mg 2023 Active 2023 71911 35823 0 Once daily By Mouth False Tylenol 325 mg tablet 2 tabs By Mouth Every 4 hours as needed For Fever >100 DO NOT EXCEED 3000 MG APAP/24 Hours 2 tabs 12/20 Inactiv e 2023 58513 72757 0 Every 4 hours as needed By Mouth False Dulcolax (bisacodyl) 10 mg rectal suppository Daily as needed For Constipation 1 sup 12/20 Inactiv e 2023 78315 62208 1 Daily as needed Rectal False Fleet Enema 19 gram-7 gram/118 mL 1 Rectal Daily as neededFor Constipation 1 12/20 Inactiv e 2023 89699 35248 6 Daily as needed Rectal False Problems [...] weight Temperature SpO2 Blood Sugar Pulse Respirations 34333 2 [place]40 [place] [address] 204 34363 1 78.00 mm[Hg] - Sitting 144.00 mm[Hg] - Sitting 08590 205 40480 4 85.00 mm[Hg] - Sitting 142.00 mm[Hg] - Sitting 25293 206 42092 9 76.00 mm[Hg] - Sitting 132.00 mm[Hg] - Sitting 64514 208 98257 9 82.00 mm[Hg] - Sitting 128.00 mm[Hg] - Sitting 85172 209 90217 2 78.00 mm[Hg] - Sitting 130.00 mm[Hg] - Sitting 69480 210 75367 6 80.00 mm[Hg] - Sitting 132.00 mm[Hg] - Sitting 80404 211 86478 5 78.00 mm[Hg] - Sitting 125.00 mm[Hg] - Sitting 55653 216 35110 1 254.10 NI [address]0465 216 33785 2 79.00 mm[Hg] - Sitting 157.00 mm[Hg] - Sitting 73 NI 254.10 NI 36.30 Tympanic 95.00 % 72.00/ min 16.00/min 54393 216 01282 4 98.80 Tympanic 90939 216 74547 2 78.00 mm[Hg] - Sitting 164.00 mm[Hg] - Sitting 12096 217 53120 3 98.20 Tympanic 33504 217 62040 5 73.00 mm[Hg] - Sitting 159.00 mm[Hg] - Sitting 67123 217 58939 9 98.40 Forehead Scan 58296 218 01612 3 97.90 Tympanic 19709 218 10398 5 77.00 mm[Hg] - Sitting 137.00 mm[Hg] - Sitting 13175 219 86353 0 97.70 Tympanic 28859 219 37306 6 97.60 Tympanic 38697 219 96935 4 76.00 mm[Hg] - Sitting 139.00 mm[Hg] - Sitting 65952 219 24038 4 97.80 Forehead Scan 74747 220 35800 9 97.90 Tympanic 86026 220 38740 9 76.00 mm[Hg] - Sitting 138.00 mm[Hg] - Sitting 09816 220 83118 6 98.10 Tympanic 88284 221 67496 5 67.00 mm[Hg] - Sitting 142.00 mm[Hg] - Sitting 54611 221 67940 8 98.20 Tympanic 34084 221 50826 0 98.30 Tympanic 27782 222 91549 7 98.20 Tympanic 32826 222 62504 8 97.90 Tympanic 73742 223 04526 3 98.20 Tympanic 68089 223 07989 3 98.00 Tympanic 73604 224 32778 0 59.00 mm[Hg] - Sitting 111.00 mm[Hg] - Sitting 98.40 Forehead Scan 95.00 % 56.00/ min 18.00/min 47380 224 82748 9 98.20 Forehead Scan 03583 224 25689 3 97.90 Tympanic 74170 225 33537 4 98.20 Tympanic 35429 225 17590 8 97.50 Forehead Scan 49387 228 76649 0 55.00 mm[Hg] - Sitting 118.00 mm[Hg] - Sitting 98.40 Tympanic 69.00/ min 82338 229 50372 8 78.00 mm[Hg] - Sitting 152.00 mm[Hg] - Sitting 70663 230 69006 0 62.00 mm[Hg] - Sitting 122.00 mm[Hg] - Sitting 35167 231 00574 7 72.00 mm[Hg] - Lying Down 140.00 mm[Hg] - Lying Down 01462 101 87491 3 97.70 Forehead Scan 48332 101 45970 1 254.10 NI 69.00/ min 68986 101 20093 9 72.00 mm[Hg] - Sitting 142.00 mm[Hg] - Sitting 97.70 Tympanic 18.00/min 82676 101 88925 3 72.00 mm[Hg] - Lying Down 142.00 mm[Hg] - Lying Down 01064 102 40011 8 68.00 mm[Hg] - Lying Down 152.00 mm[Hg] - Lying Down 83009 103 69957 5 74.00 mm[Hg] - Sitting 158.00 mm[Hg] - Sitting Immunizations Vaccine Date Status [...]
--- OUTSIDE RECORDS SUMMARY | 2024-07-26 11:22 | External Medical Summary | Continuity Of Care Document ---
Author Name Unknown Address [address] [place] [address] Organization [facility] () Care Team Providers Care Field Scout Name Role Phone DO Pritchett Amy Primary Care Provider [phone] Allergies Allergy Reaction Start Date End Date Status AMINOGLYCOSIDES Active CIPRO Active GENTAMICIN Active NSAIDS (NON-STEROIDAL ANTI-INFLAMMATORY DRUG) 0 Active IBUPROFEN Active QUINOLONES Active VALIUM Active Medications Medication Instructions Dosage Start Date End Date Status Order Date Drug Code Frequency Route of Admin Diagnosis Code Substitutions Allowed Spikevax [id number](1 2y up)(PF) 50 mcg/0.5 mL intramuscul ar suspension [COVID [id number](12 up)(andu)(P F)] 0.5mL Intramuscular 1 time Monitory 15 Minutes post injection for adverse effects; record site/temp For COVID 19 PREVENTION 0.5mL 01/02 Inactiv e 2023 13549 23903 4 1 time Intram uscula r False [facility] - Nurse initials indicate verificatio n that [id number] vaccine was administere d by [facility] Representat jon 1 Intramuscular 1 time ( Indicate vaccine type) For vaccine 1 05/03 Inactiv e 2023 1 time Intram uscula r False Lisinopril 40 mg tablet [generic] TAKE ONE (1) TABLET BY MOUTH IN THE MORNING. For DX- HTN 1 2023 Active 2023 21827 90023 1 Once daily By Mouth False Tizanidine 2 mg tablet [generic] TAKE ONE (1) TABLET BY MOUTH ONCE DAILY For MUSCLE SPASM 1 2023 Active 2023 01039 10355 0 Once daily By Mouth M62.838 False Tamsulosin 0.4 mg capsule [generic] TAKE (1) CAPSULE BY MOUTH AT BEDTIME For SPASMS 1 2023 Active 2023 53443 15608 0 Once daily By Mouth False Aspirin 81 mg tablet Once daily 1 TABLET BY MOUTH IN THE MORNING For DX- CAD DO NOT CRUSH, CHEW OR BREAK 81 mg 06/12 Inactiv e 2023 Once daily By Mouth False Baclofen 20 mg tablet [generic] 20 mg By Mouth 4 times a day For DX- MUSCLE SPASMS 20 mg 12/12 Inactiv e 2023 38930 36584 1 4 times a day By Mouth False Calcium citrate 250 mg tablet Once daily 4 TABLET BY MOUTH For DX- SUPPLEMENT 250 mg calci 12/12 Inactiv e 2023 Once daily By Mouth False Co Q-10 100 mg capsule 100 mg By Mouth Once daily For DX- SUPPLEMENT 100 mg 06/20 Inactiv e 2023 56111 15385 5 Once daily By Mouth False Furosemide 20 mg tablet [generic] 20 mg By Mouth Once daily For DX-CHF 20 mg 12/12 Inactiv e 2023 98648 26047 0 Once daily By Mouth False Gabapentin 300 mg capsule [generic] 300 mg By Mouth 3 times a day For DX- NEUROPATHY 300 mg 12/12 Inactiv e 2023 53289 67665 4 3 times a day By Mouth False Loratadine 10 mg tablet [generic] 10 mg By Mouth Once daily For DX- ALLERGIES 10 mg 2023 Active 2023 74140 52567 1 Once daily By Mouth False Miralax 17 gram/dose oral powder 17 gram/dose By Mouth IN THE MORNING Mix 1 TABLESPOON IN 8 OZ OF FLUID HOLD FOR LOOSE STOOLS For DX- CONSTIPATION 17 gram/do se 12/12 Inactiv e 2023 06245 25738 0 Once daily By Mouth False Paroxetine 30 mg tablet [generic] 30 mg By Mouth Once daily For DX- DEPRESSION 30 mg 2023 00/00 /0000 Active 2023 63709 40706 3 Once daily By Mouth False Potassium citrate ER 15 mEq (1,620 mg) tablet,exte nded release [generic] 15 mEq By Mouth 3 times a day For DX- SUPPLEMENT/DI URETIC USE/ HYPOCITRAUIRA DO NOT CRUSH 15 mEq 12/12 Inactiv e 2023 84260 62404 1 3 times a day By Mouth [...] For DX- DANDRUFF 12/12 Inactiv e 2023 26676 26105 4 3 times a week Topica l False Acetaminoph en 325 mg tablet [generic] TAKE 2 TABS (650MG) BY MOUTH EVERY 4 HOURS NEEDED FOR TEMP >100 NOT TO EXCEED 3GM/24HRS TAKE 2 TABS (650MG) BY MOUTH EVERY 4 HOURS NEEDED FOR TEMP >100 NOT TO EXCEED 3GM/24HRS For DX-FEVER 2 12/12 Inactiv e 2023 75579 78103 0 By Mouth False MILK OF MAGNESIA ADMINISTER 30 ML BY MOUTH ONCE DAILY NEEDED FOR CONSTIPATION X3 DAYS WITH NO BM. For DX- CONSTIPATION 30ML 12/12 Inactiv e 2023 81762 47064 9 By Mouth False Enema Disposable 19 gram-7 gram/118 mL ADMINISTER ONE ENEMA RECTALLY ONCE DAILY NEEDED FOR CONSTIPATION ON DAY 6 OF NO BM For DX- CONSTIPATION 12/12 Inactiv e 2023 50011 12432 1 Rectal False TUMS EXTRA STR 750MG TAKE (1) TABLET BY MOUTH THREE TIMES DAILY NEEDED FOR INDIGESTION For DX- INDIGESTION 1 12/12 Inactiv e 2023 28529 19783 8 By Mouth False Vitamin D3 25 [...] CONSTIPATION 10 mg 12/12 Inactiv e 2023 71883 35866 1 Rectal False Melatonin 3 mg tablet [generic] 3 mg By Mouth As Needed For DX-INSOMMIA 3 mg 12/12 Inactiv e 2023 45021 09074 8 By Mouth False Hydrocortis one 1 % topical cream [generic] 1 % Topical As Needed For DX- PAIN 1 % 12/12 Inactiv e 2023 15181 05213 1 Topica l False HYDROCORTIS ONE/PARMOXI NE [...] 5-10 50 mg 12/20 Inactiv e 2023 93691 56422 0 Every 4 hours as needed By Mouth False Tylenol 325 mg tablet 325 mg By Mouth Every 4 hours as needed For DX- PAIN PRN FOR MILD PAIN, DO NOT EXCEED 3000MG APAP/24 HOURS 325 mg 12/20 Inactiv e 2023 62011 08483 0 Every 4 hours as needed By Mouth False Baclofen 20 mg tablet [generic] 20 mg By Mouth 4 times a day For MUSCLE SPASMS 20 mg 12/20 Inactiv e 2023 92536 03953 1 4 times a day By Mouth False Calcium citrate 250 mg tablet [generic] Once daily TAKE 4 TABLETS (1000MG) BY MOUTH For SUPPLEMENT 1000 MG 06/26 Inactiv e 2023 89894 61142 6 Once daily By Mouth False Dulcolax (bisacodyl) 10 mg rectal suppository 10 mg Rectal Once daily For CONSTIPATION *MAY HOLD FOR LOOSE STOOLS* 10 mg 2023 Active 2023 52519 57306 1 Once daily Rectal False Gabapentin 300 mg capsule [generic] 300 mg By Mouth 3 times a day For NEUROPATHY 300 mg 2023 Active 2023 61282 29706 4 3 times a day By Mouth False Potassium citrate ER 15 mEq (1,620 mg) tablet,exte nded release [generic] 15 mEq By Mouth 3 times a day For SUPPLEMENT/DI URETIC USE/HYPOCITRA URIA 15 mEq 06/11 Inactiv e 2023 66202 43571 1 3 times a day By Mouth False Potassium chloride ER 20 mEq tablet,exte nded release [generic] 20 mEq By Mouth 3 times a day *DO NOT CRUSH, CHEW OR BREAK* For SUPPLEMENT 20 mEq 12/18 Inactiv e 2023 68328 63114 1 3 times a day By Mouth False Tizanidine 4 mg tablet [generic] 4 mg By Mouth Once daily For MUSCLE SPASMS 4 mg 2023 Active 2023 66149 57148 0 Once daily By Mouth False Tylenol 325 mg tablet 2 tabs By Mouth Every 4 hours as needed For Fever >100 DO NOT EXCEED 3000 MG APAP/24 Hours 2 tabs 12/20 Inactiv e 2023 21219 70748 0 Every 4 hours as needed By Mouth False Dulcolax (bisacodyl) 10 mg rectal suppository Daily as needed For Constipation 1 sup 12/20 Inactiv e 2023 26498 85507 1 Daily as needed Rectal False Fleet Enema 19 gram-7 gram/118 mL 1 Rectal Daily as neededFor Constipation 1 12/20 Inactiv e 2023 40034 91017 6 Daily as needed Rectal False Milk of Magnesia 400 mg/5 mL oral suspension [Magnesium hydroxide] PRN 30ml By Mouth Daily as needed for constipation one time daily if no BM, on day 4 of no BM (PRN refer to instructions) For Constipation For Constipatioin 30ml 12/20 Inactiv e 2023 62306 62465 6 1 time By Mouth False Melatonin 3 mg tablet [generic] 3 mg By Mouth Once daily As Needed For INSOMNIA 3 mg 12/20 Inactiv e 2023 36278 94008 8 Once daily By Mouth False Hydrocortis one 1 % topical cream [generic] 1 % Rectal Four times daily as needed For hemorroid pain 1 % 12/20 Inactiv e 2023 42231 34318 1 Four times daily as needed Rectal False X-STGH ANTACID 750MG CHEW TAKE (1) TABLET BY MOUTH THREE TIMES DAILY NEEDED FOR INDIGESTION 12/20 Inactiv e 2023 50142 72910 4 Three times daily as needed Saline Mist 0.65 % nasal spray aerosol 0.65 % Nares Four times daily as needed For DRYNESS 0.65 % 12/20 Inactiv e 2023 77587 05732 8 Four times daily as needed Nares False Vicks Vaporub 4.7 %-1.2 %-2.6 % topical ointment Apply topically to chest Three times daily as needed For CONGESTION 4.7-1.2 -2.6 12/20 Inactiv e 2023 28812 28481 1 Three times daily as needed Topica l False VITAMIN D3 2000U CAP TAKE ONE (1) CAPSULE BY MOUTH DAILY* DO NOT CRUSH, CHEW OR BREAK* For Supplement 1 capsule 12/19 Inactiv e 2023 55553 22988 0 Once daily By Mouth False Potassium chloride ER 20 mEq tablet,exte nded release(par t/cryst) [generic] TAKE (1) TABLET BY MOUTH THREE TIMES DAILY (MORNING, AFTERNOON, EVENING)*DO NOT CRUSH, CHEW, OR BREAK* For SUPPLEMENT 20 MEQ 06/11 Inactiv e 2023 15506 35995 5 3 times a day By Mouth False Aspirin 81 mg tablet,camron yed release [generic] TAKE ONE (1) TABLET BY MOUTH ONCE DAILY*DO NOT CRUSH, CHEW OR BREAK* For CAD 81 MG 12/22 Inactiv e 2023 68507 94607 0 Once daily By Mouth False Furosemide 20 mg tablet [generic] TAKE 1 AND 1/2 TABLETS (30MG) BY MOUTH ONCE DAILY For CHF 30mg 2023 Active 2023 51871 49432 1 Once daily By Mouth False Polyethylen e glycol 3350 17 gram/dose oral powder [generic] MIX 17 GRAMS (1 CAPFUL) IN 60Z OF LIQUID AND DRINK BY MOUTH ONCE DAILY *HOLD FOR LOOSE STOOLS* For constipation 17 g 2023 Active 2023 55811 21060 3 Once daily By Mouth False Vitamin D3 50 mcg (2,000 unit) capsule Once daily TAKE ONE (1) CAPSULE BY MOUTH DAILY* DO NOT CRUSH, CHEW OR BREAK* For Supplement 1 capsule 02/07 Inactiv e 2023 88850 79268 2 Once daily By Mouth False Fleet Enema 19 gram-7 gram/118 mL 1 Rectal Daily as neededFor Constipation 1 2023 0000 Active 2023 92731 38921 6 Daily as needed Rectal False Tums E-X 300 mg (as calcium carbonate 750 mg) chewable tablet 1 tab By Mouth TAKE (1) TABLET BY MOUTH THREE TIMES DAILY NEEDED FOR INDIGESTION 1 tab 202300 /0000 Active 2023 60187 56712 1 Three times daily as needed By Mouth False Tylenol 325 mg tablet 2 tabs By Mouth Every 4 hours as needed For Fever >100 DO NOT EXCEED 3000 MG APAP/24 Hours 2 tabs 202300 /0000 Active 2023 05427 49642 0 Every 4 hours as needed By Mouth False Vicks Vaporub 4.7 %-1.2 %-2.6 % topical ointment Apply topically to chest Three times daily as needed For CONGESTION topical 202300 Active 2023 61216 14738 1 Three times daily as needed Topica l False Tylenol 325 mg tablet 2 tabs By Mouth Every 4 hours as needed For DX- PAIN PRN FOR MILD PAIN, DO NOT EXCEED 3000MG APAP/24 HOURS 2 tabs 202300 Active 2023 03688 11345 0 Every 4 hours as needed By Mouth False Tramadol 50 mg tablet [generic] 1 tab By Mouth Every 4 hours as needed For DX- PAIN 5-10 1 tab 03/10 Inactiv e 2023 41492 76112 0 Every 4 hours as needed By Mouth False Saline Mist 0.65 % nasal spray aerosol 2 sprays Nares Four times daily as needed For DRYNESS 2 sprays 202300 / Active 2023 12860 72324 8 Four times daily as needed Nares False Dulcolax (bisacodyl) 10 mg rectal suppository Daily as needed For Constipation 1 sup 202300 / Active 2023 38728 95478 1 Daily as needed Rectal False Hydrocortis one-pramoxi ne 1 %-1 % rectal cream [generic] 1 mague Rectal Four times daily as needed For hemorroid pain 1 mague 202300 /0000 Active 2023 70247 34782 4 Four times daily as needed Rectal False Melatonin 3 mg tablet [generic] 1 tab By Mouth At bedtime as needed For INSOMNIA 1 tab 12/24 Inactiv e 2023 62734 77050 8 At bedtime as needed By Mouth False Milk of Magnesia 400 mg/5 mL oral suspension 30ml By Mouth Daily as needed Daily as needed for constipation one time daily if no BM, on day 4 of no BM (PRN refer to instructions) For Constipation For Constipatioin 30ml 2023 Active 2023 80232 15500 2 Daily as needed By Mouth False Baclofen 20 mg tablet [generic] 20 mg By Mouth 4 times a day For MUSCLE SPASMS 20 mg 2023 Active 2023 68710 37956 1 4 times a day By Mouth False Melatonin 3 mg tablet [generic] 1 tab By Mouth At bedtime as needed For INSOMNIA 1 tab 2023 Active 2023 08789 78301 8 At bedtime as needed By Mouth False Bactrim DS 800 mg-160 mg tablet 1 tab By Mouth Twice daily For URINARY TRACT INFECTION, SITE NOT SPECIFIED 1 tab 01/06 Inactiv e 2023 48316 46332 1 Twice daily By Mouth N39.0 False Cefdinir 300 mg capsule [generic] 300 mg By Mouth Twice daily For UTI 300 mg 01/07 Inactiv e 2023 31529 93935 0 Twice daily By Mouth False Cefdinir 300 mg capsule [generic] 300 mg By Mouth Twice daily For UTI 300 mg 01/17 Inactiv e 2023 82887 71747 0 Twice daily By Mouth False Zyrtec 10 mg tablet 10 mg By Mouth Once daily For sinus congestion 10 mg 01/22 Inactiv e 2023 21739 95164 0 Once daily By Mouth False Tobramycin 0.3 %-dexametha sone 0.1 % eye drops,suspe nsion [generic] 0.3-0.1 % Left Eye 4 times a day For eye infection 0.3-0.1 % 02/05 Inactiv e 2023 73028 84835 5 4 times a day Left Eye False Fluconazole 150 mg tablet [generic] 150 mg By Mouth 1 time For yeast infection 150 mg 02/15 Inactiv e 2023 50705 84038 2 1 time By Mouth False Tramadol 50 mg tablet [generic] 1 tab By Mouth Every 4 hours as needed For DX- PAIN 5-10 1 tab 2023 00/00 /0000 Active 2023 31283 38833 0 Every 4 hours as needed By Mouth False Tobramycin 0.3 %-dexametha sone 0.1 % eye drops,suspe nsion [generic] 1 drop Left Eye 4 times a day For Inflammation of left eye 1 drop 05/08 Inactiv e 2023 65606 49404 5 4 times a day Left Eye False Voltaren Arthritis Pain 1 % topical gel 2 gm Topical Twice daily to rigth shoulder for 2 weeks For pain 2 gm 05/08 Inactiv e 2023 53153 65166 1 Twice daily Topica l False Chlorthalid one 25 mg tablet [generic] 12.5mg By Mouth Once daily For HTN 12.5mg 05/06 Inactiv e 2023 08116 88282 0 Once daily By Mouth False Chlorthalid one 25 mg tablet [generic] 12.5mg By Mouth Once daily For HTN 12.5mg 05/07 Inactiv e 2023 17253 61628 0 Once daily By Mouth False Chlorthalid one 25 mg tablet [generic] 05/07 Inactiv e 2023 83119 40815 0 Chlorthalid one 25 mg tablet [generic] 12.5mg By Mouth Once daily For HTN 12.5mg 06/26 Inactiv e 2023 25982 86739 0 Once daily By Mouth False Norvasc 5 mg tablet 5mg By Mouth Once daily, hold medication if systolic is less than 90 For HYPERTENSIVE HEART DISEASE WITHOUT HEART FAILURE 5mg 06/03 Inactiv e 2023 80436 22795 1 Once daily By Mouth I11.9 False Norvasc 5 mg tablet 5mg By Mouth Once daily, hold medication if systolic is less than 90 For HYPERTENSIVE HEART DISEASE WITHOUT HEART FAILURE 5mg 06/03 Inactiv e 2023 56748 84262 1 Once daily By Mouth I11.9 False Norvasc 5 mg tablet 5mg By Mouth Once daily, hold medication if systolic is less than 90 For HYPERTENSIVE HEART DISEASE WITHOUT HEART FAILURE 5mg 06/26 Inactiv e 2023 04965 08681 1 Once daily By Mouth I11.9 False [...] 10 mg 2023 0000 /0000 Active 2023 11066 40411 1 Once daily By Mouth False DISCONTINUE [...] CAD 81 mg 06/14 Inactiv e 2023 56462 35778 9 Once daily By Mouth False Aspirin 81 mg tablet,camron yed release [generic] 06/14 Inactiv e 2023 40028 38771 9 Problems Code Description Start Date End [...] weight Temperature SpO2 Blood Sugar Pulse Respirations 203 94664 2 259.80 NI 203 03048 5 93.00 mm[Hg] - Sitting 137.00 mm[Hg] - Sitting 204 90010 2 259.40 NI 204 84994 1 78.00 mm[Hg] - Sitting 144.00 mm[Hg] - Sitting 205 50597 4 85.00 mm[Hg] - Sitting 142.00 mm[Hg] - Sitting 206 68771 9 76.00 mm[Hg] - Sitting 132.00 mm[Hg] - Sitting 208 60029 9 82.00 mm[Hg] - Sitting 128.00 mm[Hg] - Sitting 209 39785 2 78.00 mm[Hg] - Sitting 130.00 mm[Hg] - Sitting 210 30009 6 80.00 mm[Hg] - Sitting 132.00 mm[Hg] - Sitting 61997 211 99878 5 78.00 mm[Hg] - Sitting 125.00 mm[Hg] - Sitting 53797 216 71263 1 254.10 NI 44437 216 98413 2 79.00 mm[Hg] - Sitting 157.00 mm[Hg] - Sitting 73 NI 254.10 NI 36.30 Tympanic 95.00 % 72.00/ min 16.00/min 73536 216 64433 4 98.80 Tympanic 01709 216 10931 2 78.00 mm[Hg] - Sitting 164.00 mm[Hg] - Sitting 85732 217 59593 3 98.20 Tympanic 75071 217 76675 5 73.00 mm[Hg] - Sitting 159.00 mm[Hg] - Sitting 60295 217 67610 9 98.40 Forehead Scan 76368 218 32128 3 97.90 Tympanic 46887 218 72664 5 77.00 mm[Hg] - Sitting 137.00 mm[Hg] - Sitting 23652 219 96187 0 97.70 Tympanic 93176 219 11363 6 97.60 Tympanic 40630 219 08364 4 76.00 mm[Hg] - Sitting 139.00 mm[Hg] - Sitting 07710 219 55031 4 97.80 Forehead Scan 32940 220 44254 9 97.90 Tympanic 68559 220 10524 9 76.00 mm[Hg] - Sitting 138.00 mm[Hg] - Sitting 28375 220 44173 6 98.10 Tympanic 43623 221 12154 5 67.00 mm[Hg] - Sitting 142.00 mm[Hg] - Sitting 69843 221 18361 8 98.20 Tympanic 56350 221 95844 0 98.30 Tympanic 84226 222 68887 7 98.20 Tympanic 29553 222 72776 8 97.90 Tympanic 14261 223 21801 3 98.20 Tympanic 41713 223 04429 3 98.00 Tympanic 73707 224 20702 0 59.00 mm[Hg] - Sitting 111.00 mm[Hg] - Sitting 98.40 Forehead Scan 95.00 % 56.00/ min 18.00/min 91042 224 34403 9 98.20 Forehead Scan 47408 224 76831 3 97.90 Tympanic 97997 225 54433 4 98.20 Tympanic 98964 225 33104 8 97.50 Forehead Scan 30524 228 06447 0 55.00 mm[Hg] - Sitting 118.00 mm[Hg] - Sitting 98.40 Tympanic 69.00/ min 72549 229 98880 8 78.00 mm[Hg] - Sitting 152.00 mm[Hg] - Sitting 17189 230 38586 0 62.00 mm[Hg] - Sitting 122.00 mm[Hg] - Sitting 68141 231 30958 7 72.00 mm[Hg] - Lying Down 140.00 mm[Hg] - Lying Down 75772 101 71369 3 97.70 Forehead Scan 21427 101 68636 1 254.10 NI 69.00/ min 91579 101 74942 9 72.00 mm[Hg] - Sitting 142.00 mm[Hg] - Sitting 97.70 Tympanic 18.00/min 54109 101 96742 3 72.00 mm[Hg] - Lying Down 142.00 mm[Hg] - Lying Down 76459 102 48652 8 68.00 mm[Hg] - Lying Down 152.00 mm[Hg] - Lying Down Immunizations Vaccine Date Status COVID-19 08/02/2020 Completed [...]
--- OUTSIDE RECORDS SUMMARY | 2024-07-26 11:22 | External Medical Summary | Continuity Of Care Document ---
Author Name Unknown Address [address] [address] Organization [facility] () Care Team Providers Care Senior Dentist Name Role Phone DO Pritchett Amy Primary Care Provider [phone] Allergies Allergy Reaction Start Date End Date Status AMINOGLYCOSIDES Active CIPRO Active GENTAMICIN Active NSAIDS (NON-STEROIDAL ANTI-INFLAMMATORY DRUG) 0 Active IBUPROFEN Active QUINOLONES Active VALIUM Active Medications Medication Instructions Dosage Start Date End Date Status Order Date Drug Code Frequency Route of Admin Diagnosis Code Substitutions Allowed Spikevax [id number](1 2y up)(PF) 50 mcg/0.5 mL intramuscul ar suspension [COVID syd70-13(12 up)(andu)(P F)] 0.5mL Intramuscular 1 time Monitory 15 Minutes post injection for adverse effects; record site/temp For COVID 19 PREVENTION 0.5mL 01/02 Inactiv e 2023 53649 43886 4 1 time Intram uscula r False [facility] - Nurse initials indicate verificatio n that [id number] vaccine was administere d by [facility] 1 Intramuscular 1 time ( Indicate vaccine type) For vaccine 1 05/03 Inactiv e 2023 1 time Intram uscula r False Lisinopril 40 mg tablet [generic] TAKE ONE (1) TABLET BY MOUTH IN THE MORNING. For DX- HTN 1 2023 Active 2023 62619 53493 1 Once daily By Mouth False Tizanidine 2 mg tablet [generic] TAKE ONE (1) TABLET BY MOUTH ONCE DAILY For MUSCLE SPASM 1 2023 Active 2023 34940 25906 0 Once daily By Mouth M62.838 False Tamsulosin 0.4 mg capsule [generic] TAKE (1) CAPSULE BY MOUTH AT BEDTIME For SPASMS 1 2023 Active 2023 73133 97984 0 Once daily By Mouth False Aspirin 81 mg tablet Once daily 1 TABLET BY MOUTH IN THE MORNING For DX- CAD DO NOT CRUSH, CHEW OR BREAK 81 mg 06/12 Inactiv e 2023 Once daily By Mouth False Baclofen 20 mg tablet [generic] 20 mg By Mouth 4 times a day For DX- MUSCLE SPASMS 20 mg 12/12 Inactiv e 2023 11755 26584 1 4 times a day By Mouth False Calcium citrate 250 mg tablet Once daily 4 TABLET BY MOUTH For DX- SUPPLEMENT 250 mg calci 12/12 Inactiv e 2023 Once daily By Mouth False Co Q-10 100 mg capsule 100 mg By Mouth Once daily For DX- SUPPLEMENT 100 mg 06/20 Inactiv e 2023 54070 28098 5 Once daily By Mouth False Furosemide 20 mg tablet [generic] 20 mg By Mouth Once daily For DX-CHF 20 mg 12/12 Inactiv e 2023 16102 88595 0 Once daily By Mouth False Gabapentin 300 mg capsule [generic] 300 mg By Mouth 3 times a day For DX- NEUROPATHY 300 mg 12/12 Inactiv e 2023 67441 41030 4 3 times a day By Mouth False Loratadine 10 mg tablet [generic] 10 mg By Mouth Once daily For DX- ALLERGIES 10 mg 2023 Active 2023 47995 15094 1 Once daily By Mouth False Miralax 17 gram/dose oral powder 17 gram/dose By Mouth IN THE MORNING Mix 1 TABLESPOON IN 8 OZ OF FLUID HOLD FOR LOOSE STOOLS For DX- CONSTIPATION 17 gram/do se 12/12 Inactiv e 2023 38410 39720 0 Once daily By Mouth False Paroxetine 30 mg tablet [generic] 30 mg By Mouth Once daily For DX- DEPRESSION 30 mg 2023 00/00 /0000 Active 2023 59956 51482 3 Once daily By Mouth False Potassium citrate ER 15 mEq (1,620 mg) tablet,exte nded release [generic] 15 mEq By Mouth 3 times a day For DX- SUPPLEMENT/DI URETIC USE/ HYPOCITRAUIRA DO NOT CRUSH 15 mEq 12/12 Inactiv e 2023 26132 36549 1 3 times a day By Mouth [...] For DX- DANDRUFF 12/12 Inactiv e 2023 04065 77306 4 3 times a week Topica l False Acetaminoph en 325 mg tablet [generic] TAKE 2 TABS (650MG) BY MOUTH EVERY 4 HOURS NEEDED FOR TEMP >100 NOT TO EXCEED 3GM/24HRS TAKE 2 TABS (650MG) BY MOUTH EVERY 4 HOURS NEEDED FOR TEMP >100 NOT TO EXCEED 3GM/24HRS For DX-FEVER 2 12/12 Inactiv e 2023 91097 07170 0 By Mouth False MILK OF MAGNESIA ADMINISTER 30 ML BY MOUTH ONCE DAILY NEEDED FOR CONSTIPATION X3 DAYS WITH NO BM. For DX- CONSTIPATION 30ML 12/12 Inactiv e 2023 64451 67488 9 By Mouth False Enema Disposable 19 gram-7 gram/118 mL ADMINISTER ONE ENEMA RECTALLY ONCE DAILY NEEDED FOR CONSTIPATION ON DAY 6 OF NO BM For DX- CONSTIPATION 12/12 Inactiv e 2023 58290 39683 1 Rectal False TUMS EXTRA STR 750MG TAKE (1) TABLET BY MOUTH THREE TIMES DAILY NEEDED FOR INDIGESTION For DX- INDIGESTION 1 12/12 Inactiv e 2023 26055 20859 8 By Mouth False Vitamin D3 25 [...] CONSTIPATION 10 mg 12/12 Inactiv e 2023 91785 12225 1 Rectal False Melatonin 3 mg tablet [generic] 3 mg By Mouth As Needed For DX-INSOMMIA 3 mg 12/12 Inactiv e 2023 37611 24599 8 By Mouth False Hydrocortis one 1 % topical cream [generic] 1 % Topical As Needed For DX- PAIN 1 % 12/12 Inactiv e 2023 64121 28283 1 Topica l False HYDROCORTIS ONE/PARMOXI NE [...] 5-10 50 mg 12/20 Inactiv e 2023 76752 02297 0 Every 4 hours as needed By Mouth False Tylenol 325 mg tablet 325 mg By Mouth Every 4 hours as needed For DX- PAIN PRN FOR MILD PAIN, DO NOT EXCEED 3000MG APAP/24 HOURS 325 mg 12/20 Inactiv e 2023 78708 70624 0 Every 4 hours as needed By Mouth False Baclofen 20 mg tablet [generic] 20 mg By Mouth 4 times a day For MUSCLE SPASMS 20 mg 12/20 Inactiv e 2023 49137 21410 1 4 times a day By Mouth False Calcium citrate 250 mg tablet [generic] Once daily TAKE 4 TABLETS (1000MG) BY MOUTH For SUPPLEMENT 1000 MG 06/26 Inactiv e 2023 47507 79121 6 Once daily By Mouth False Dulcolax (bisacodyl) 10 mg rectal suppository 10 mg Rectal Once daily For CONSTIPATION *MAY HOLD FOR LOOSE STOOLS* 10 mg 2023 Active 2023 87999 15092 1 Once daily Rectal False Gabapentin 300 mg capsule [generic] 300 mg By Mouth 3 times a day For NEUROPATHY 300 mg 2023 Active 2023 11432 93954 4 3 times a day By Mouth False Potassium citrate ER 15 mEq (1,620 mg) tablet,exte nded release [generic] 15 mEq By Mouth 3 times a day For SUPPLEMENT/DI URETIC USE/HYPOCITRA URIA 15 mEq 06/11 Inactiv e 2023 84902 00821 1 3 times a day By Mouth False Potassium chloride ER 20 mEq tablet,exte nded release [generic] 20 mEq By Mouth 3 times a day *DO NOT CRUSH, CHEW OR BREAK* For SUPPLEMENT 20 mEq 12/18 Inactiv e 2023 78035 00951 1 3 times a day By Mouth False Tizanidine 4 mg tablet [generic] 4 mg By Mouth Once daily For MUSCLE SPASMS 4 mg 2023 Active 2023 93882 32945 0 Once daily By Mouth False Tylenol 325 mg tablet 2 tabs By Mouth Every 4 hours as needed For Fever >100 DO NOT EXCEED 3000 MG APAP/24 Hours 2 tabs 12/20 Inactiv e 2023 70875 49894 0 Every 4 hours as needed By Mouth False Dulcolax (bisacodyl) 10 mg rectal suppository Daily as needed For Constipation 1 sup 12/20 Inactiv e 2023 06608 55369 1 Daily as needed Rectal False Fleet Enema 19 gram-7 gram/118 mL 1 Rectal Daily as neededFor Constipation 1 12/20 Inactiv e 2023 11756 80348 6 Daily as needed Rectal False Milk of Magnesia 400 mg/5 mL oral suspension [Magnesium hydroxide] PRN 30ml By Mouth Daily as needed for constipation one time daily if no BM, on day 4 of no BM (PRN refer to instructions) For Constipation For Constipatioin 30ml 12/20 Inactiv e 2023 12396 03304 6 1 time By Mouth False Melatonin 3 mg tablet [generic] 3 mg By Mouth Once daily As Needed For INSOMNIA 3 mg 12/20 Inactiv e 2023 30452 86808 8 Once daily By Mouth False Hydrocortis one 1 % topical cream [generic] 1 % Rectal Four times daily as needed For hemorroid pain 1 % 12/20 Inactiv e 2023 46665 89392 1 Four times daily as needed Rectal False X-STGH ANTACID 750MG CHEW TAKE (1) TABLET BY MOUTH THREE TIMES DAILY NEEDED FOR INDIGESTION 12/20 Inactiv e 2023 16676 97307 4 Three times daily as needed Saline Mist 0.65 % nasal spray aerosol 0.65 % Nares Four times daily as needed For DRYNESS 0.65 % 12/20 Inactiv e 2023 42386 32390 8 Four times daily as needed Nares False Vicks Vaporub 4.7 %-1.2 %-2.6 % topical ointment Apply topically to chest Three times daily as needed For CONGESTION 4.7-1.2 -2.6 12/20 Inactiv e 2023 27372 14439 1 Three times daily as needed Topica l False VITAMIN D3 2000U CAP TAKE ONE (1) CAPSULE BY MOUTH DAILY* DO NOT CRUSH, CHEW OR BREAK* For Supplement 1 capsule 12/19 Inactiv e 2023 73293 68957 0 Once daily By Mouth False Potassium chloride ER 20 mEq tablet,exte nded release(par t/cryst) [generic] TAKE (1) TABLET BY MOUTH THREE TIMES DAILY (MORNING, AFTERNOON, EVENING)*DO NOT CRUSH, CHEW, OR BREAK* For SUPPLEMENT 20 MEQ 06/11 Inactiv e 2023 56352 89086 5 3 times a day By Mouth False Aspirin 81 mg tablet,camron yed release [generic] TAKE ONE (1) TABLET BY MOUTH ONCE DAILY*DO NOT CRUSH, CHEW OR BREAK* For CAD 81 MG 12/22 Inactiv e 2023 16513 41952 0 Once daily By Mouth False Furosemide 20 mg tablet [generic] TAKE 1 AND 1/2 TABLETS (30MG) BY MOUTH ONCE DAILY For CHF 30mg 2023 Active 2023 36230 03126 1 Once daily By Mouth False Polyethylen e glycol 3350 17 gram/dose oral powder [generic] MIX 17 GRAMS (1 CAPFUL) IN 60Z OF LIQUID AND DRINK BY MOUTH ONCE DAILY *HOLD FOR LOOSE STOOLS* For constipation 17 g 2023 Active 2023 35850 67237 3 Once daily By Mouth False Vitamin D3 50 mcg (2,000 unit) capsule Once daily TAKE ONE (1) CAPSULE BY MOUTH DAILY* DO NOT CRUSH, CHEW OR BREAK* For Supplement 1 capsule 02/07 Inactiv e 2023 77807 96327 2 Once daily By Mouth False Fleet Enema 19 gram-7 gram/118 mL 1 Rectal Daily as neededFor Constipation 1 2023 0000 Active 2023 27906 10258 6 Daily as needed Rectal False Tums E-X 300 mg (as calcium carbonate 750 mg) chewable tablet 1 tab By Mouth TAKE (1) TABLET BY MOUTH THREE TIMES DAILY NEEDED FOR INDIGESTION 1 tab 202300 /0000 Active 2023 15011 75407 1 Three times daily as needed By Mouth False Tylenol 325 mg tablet 2 tabs By Mouth Every 4 hours as needed For Fever >100 DO NOT EXCEED 3000 MG APAP/24 Hours 2 tabs 202300 /0000 Active 2023 06395 62652 0 Every 4 hours as needed By Mouth False Vicks Vaporub 4.7 %-1.2 %-2.6 % topical ointment Apply topically to chest Three times daily as needed For CONGESTION topical 202300 Active 2023 21958 64762 1 Three times daily as needed Topica l False Tylenol 325 mg tablet 2 tabs By Mouth Every 4 hours as needed For DX- PAIN PRN FOR MILD PAIN, DO NOT EXCEED 3000MG APAP/24 HOURS 2 tabs 202300 Active 2023 47110 21692 0 Every 4 hours as needed By Mouth False Tramadol 50 mg tablet [generic] 1 tab By Mouth Every 4 hours as needed For DX- PAIN 5-10 1 tab 03/10 Inactiv e 2023 39941 22414 0 Every 4 hours as needed By Mouth False Saline Mist 0.65 % nasal spray aerosol 2 sprays Nares Four times daily as needed For DRYNESS 2 sprays 202300 / Active 2023 80413 53199 8 Four times daily as needed Nares False Dulcolax (bisacodyl) 10 mg rectal suppository Daily as needed For Constipation 1 sup 202300 / Active 2023 35595 30667 1 Daily as needed Rectal False Hydrocortis one-pramoxi ne 1 %-1 % rectal cream [generic] 1 mague Rectal Four times daily as needed For hemorroid pain 1 mague 202300 /0000 Active 2023 42655 26149 4 Four times daily as needed Rectal False Melatonin 3 mg tablet [generic] 1 tab By Mouth At bedtime as needed For INSOMNIA 1 tab 12/24 Inactiv e 2023 38144 91710 8 At bedtime as needed By Mouth False Milk of Magnesia 400 mg/5 mL oral suspension 30ml By Mouth Daily as needed Daily as needed for constipation one time daily if no BM, on day 4 of no BM (PRN refer to instructions) For Constipation For Constipatioin 30ml 2023 Active 2023 34467 74614 2 Daily as needed By Mouth False Baclofen 20 mg tablet [generic] 20 mg By Mouth 4 times a day For MUSCLE SPASMS 20 mg 2023 Active 2023 39821 39666 1 4 times a day By Mouth False Melatonin 3 mg tablet [generic] 1 tab By Mouth At bedtime as needed For INSOMNIA 1 tab 2023 Active 2023 10337 65313 8 At bedtime as needed By Mouth False Bactrim DS 800 mg-160 mg tablet 1 tab By Mouth Twice daily For URINARY TRACT INFECTION, SITE NOT SPECIFIED 1 tab 01/06 Inactiv e 2023 23489 01944 1 Twice daily By Mouth N39.0 False Cefdinir 300 mg capsule [generic] 300 mg By Mouth Twice daily For UTI 300 mg 01/07 Inactiv e 2023 43596 01754 0 Twice daily By Mouth False Cefdinir 300 mg capsule [generic] 300 mg By Mouth Twice daily For UTI 300 mg 01/17 Inactiv e 2023 91528 44418 0 Twice daily By Mouth False Zyrtec 10 mg tablet 10 mg By Mouth Once daily For sinus congestion 10 mg 01/22 Inactiv e 2023 49873 47979 0 Once daily By Mouth False Tobramycin 0.3 %-dexametha sone 0.1 % eye drops,suspe nsion [generic] 0.3-0.1 % Left Eye 4 times a day For eye infection 0.3-0.1 % 02/05 Inactiv e 2023 10413 07425 5 4 times a day Left Eye False Fluconazole 150 mg tablet [generic] 150 mg By Mouth 1 time For yeast infection 150 mg 02/15 Inactiv e 2023 03883 75175 2 1 time By Mouth False Tramadol 50 mg tablet [generic] 1 tab By Mouth Every 4 hours as needed For DX- PAIN 5-10 1 tab 2023 00/00 /0000 Active 2023 29269 63307 0 Every 4 hours as needed By Mouth False Tobramycin 0.3 %-dexametha sone 0.1 % eye drops,suspe nsion [generic] 1 drop Left Eye 4 times a day For Inflammation of left eye 1 drop 05/08 Inactiv e 2023 09123 03331 5 4 times a day Left Eye False Voltaren Arthritis Pain 1 % topical gel 2 gm Topical Twice daily to rigth shoulder for 2 weeks For pain 2 gm 05/08 Inactiv e 2023 71243 75436 1 Twice daily Topica l False Chlorthalid one 25 mg tablet [generic] 12.5mg By Mouth Once daily For HTN 12.5mg 05/06 Inactiv e 2023 82387 96916 0 Once daily By Mouth False Chlorthalid one 25 mg tablet [generic] 12.5mg By Mouth Once daily For HTN 12.5mg 05/07 Inactiv e 2023 61632 92324 0 Once daily By Mouth False Chlorthalid one 25 mg tablet [generic] 05/07 Inactiv e 2023 16854 16133 0 Chlorthalid one 25 mg tablet [generic] 12.5mg By Mouth Once daily For HTN 12.5mg 06/26 Inactiv e 2023 61007 48113 0 Once daily By Mouth False Norvasc 5 mg tablet 5mg By Mouth Once daily, hold medication if systolic is less than 90 For HYPERTENSIVE HEART DISEASE WITHOUT HEART FAILURE 5mg 06/03 Inactiv e 2023 44064 65230 1 Once daily By Mouth I11.9 False Norvasc 5 mg tablet 5mg By Mouth Once daily, hold medication if systolic is less than 90 For HYPERTENSIVE HEART DISEASE WITHOUT HEART FAILURE 5mg 06/03 Inactiv e 2023 01603 11159 1 Once daily By Mouth I11.9 False Norvasc 5 mg tablet 5mg By Mouth Once daily, hold medication if systolic is less than 90 For HYPERTENSIVE HEART DISEASE WITHOUT HEART FAILURE 5mg 06/26 Inactiv e 2023 56220 64872 1 Once daily By Mouth I11.9 False [...] 10 mg 2023 00/00 /0000 Active 2023 34816 05634 1 Once daily By Mouth False DISCONTINUE [...] CAD 81 mg 06/14 Inactiv e 2023 99352 48167 9 Once daily By Mouth False Aspirin 81 mg tablet,camron yed release [generic] 06/14 Inactiv e 2023 75800 40804 9 Aspirin 81 mg tablet,camron yed release [generic] 81 mg By Mouth Once daily Do not crush, chew, or break For CAD 81 mg 06/154 Inactiv e 2023 43727 11084 9 Once daily By Mouth False Cefpodoxime 200 mg tablet [generic] 200mg By Mouth Twice daily For UTI 200mg 07/04 Inactiv e 2023 45329 02896 0 Twice daily By Mouth False Calcium citrate 250 mg tablet [generic] 06/26 Inactiv e 2023 59853 45077 6 Calcium citrate 250 mg tablet [generic] Once daily TAKE 4 TABLETS (1000MG) BY MOUTH For SUPPLEMENT 500 MG 2023 Active 2023 77033 80372 6 Once daily By Mouth False Norvasc 5 mg tablet 7.5 mg By Mouth Once daily Hold medication if SBP <90 For HYPERTENSIVE HEART DISEASE WITHOUT HEART FAILURE 7.5 mg 06/30 Inactiv e 2023 83032 16228 1 Once daily By Mouth I11.9 False Norvasc 5 mg tablet 7.5 mg By Mouth Once daily Hold medication if SBP <90 For HYPERTENSIVE HEART DISEASE WITHOUT HEART FAILURE 7.5 mg 07/06 Inactiv e 2023 85666 04221 1 Once daily By Mouth I11.9 False Simethicone 125 mg capsule [generic] 2 capule By Mouth Twice daily as needed For bloating/gas pain 2 capule 2023 Active 2023 29408 46986 0 Twice daily as needed By Mouth False Cepacol Sore Throat (benzocaine -menthol) 15 mg-2.6 mg lozenges 2 lozenges By Mouth Every 6 hours as needed For sore throat 2 lozenge s 2023 Active 2023 55477 29112 6 Every 6 hours as needed By Mouth False Cefepime 1 gram solution for injection [generic] 1g Intramuscular Every 12 hours 1g intramuscular ly ever 12 hours For UTI 1g 07/06 Inactiv e 2023 99602 02270 4 Every 12 hours Intram uscula r False Cefepime 1 gram solution for injection [generic] 07/06 Inactiv e 2023 41669 48638 4 Cefepime 1 gram solution for injection [generic] 1g Intramuscular Every 12 hours 1g intramuscular ly ever 12 hours For UTI Reconstitute with 2.4 ML of NSS. 1g 07/08 Inactiv e 2023 41758 58174 4 Every 12 hours Intram uscula r False Norvasc 5 mg tablet 07/06 Inactiv e 2023 73562 15482 1 I11.9 Norvasc 5 mg tablet 7.5 mg By Mouth Once daily Hold medication if SBP <90 For HYPERTENSIVE HEART DISEASE WITHOUT HEART FAILURE 7.5 mg 2023 000000 Active 2023 95521 99104 1 Once daily By Mouth I11.9 False Cefepime 1 gram solution for injection [generic] 07/08 Inactiv e 2023 31247 86172 4 Cefepime 1 gram solution for injection [generic] 1g Intramuscular Every 12 hours 1g intramuscular ly ever 12 hours For UTI Reconstitute with 2.4 ML of NSS. 1g 07/08 Inactiv e 2023 18590 50207 4 Every 12 hours Intram uscula r False Cefepime 1 gram solution for injection [generic] 07/08 Inactiv e 2023 31624 06044 4 Cefepime 1 gram solution for injection [generic] 1g Intramuscular Every 12 hours 1g intramuscular ly ever 12 hours For UTI Reconstitute with 2.4 ML of NSS. 1g 07/11 Inactiv e 2023 21209 44109 4 Every 12 hours Intram uscula r False Nystatin 100,000 unit/gram topical cream [generic] 100,000 unit Topical As Needed For DX- EXCORIATION 100,000 unit 12/12 Inactiv e 2023 74519 93253 5 Topica l False Vicks Vaporub 4.7 %-1.2 %-2.6 % topical ointment 4.7-1.2-2.6 Topical 3 times a day As Needed For DX- CONGESTION 4.7-1.2 -2.6 12/12 Inactiv e 2023 79159 23948 1 3 times a day Topica l False Ketoconazol e 2 % shampoo [generic] APPLY SHAMPOO TOPICALLY TO SCALP DURING HAIR WASHINGDX: ELVIA DERM OF SCALP For DX- ELVIA DERM OF SCALP 12/12 Inactiv e 2023 51311 30705 4 Topica l False THERA SILICONE SKIN GUARD Topical Twice daily 1 APPLICATION TOPICALLY IN THE MORNING AND AT BEDTIME TO SCROTUM For DX- PREVENTION 202300 Active 2023 Twice daily Topica l False Selenium sulfide 2.5 % lotion [generic] 2.5 % Topical EVERY MONDAY, MONDAY AND MONDAY AFTER SHOWER For DANDRUFF 2.5 % 202300 Active 2023 02167 65857 4 3 times a week Topica l False Nystatin (bulk) 100 million unit powder [generic] 100 million Topical Twice daily as needed For EXOCORATION 100 million 12/20 Inactiv e 2023 62140 66268 1 Twice daily as needed Topica l False Ketoconazol e 2 % shampoo [generic] Once daily APPLY SHAMPOO TOPICALLY TO SCALP DURING HAIR WASHING ON SHOWER DAYS- , , MON For ELVIA DERM OF SCAP 2 % 2023 0000 / Active 2023 31452 13986 4 Once daily Topica l False Nystatin 100,000 unit/gram topical cream [generic] 1 mague Topical Twice daily as needed For EXOCORATION 1 mague 06/05 Inactiv e 2023 39066 13047 5 Twice daily as needed Topica l False Nystatin 100,000 unit/gram topical powder [generic] 100,000 unit Topical Twice daily to scrotum with AM and PM care For Scrotal excoriation 100,000 unit 06/05 Inactiv e 2023 96021 12270 5 Twice daily Topica l False Problems [...] e 07/21/2023 Active E78.5 Hyperlipidemia, unspecified 07/21/2023 Active K21.9 Gastro-esophageal re flux disease without esophagitis 07/21/2023 Active Z86.718 Personal history of other venous thrombosis and embolism 07/21/2023 Active Z46.6 Encounter for fittin g and adjustment of urinary device 07/21/2023 Active Z79.01 jail (current) use of anticoagulants 07/21 Active N31.9 Neuromuscular dysfun ction of bladder, unspecified 07/21/2023 Active VITAL SIGNS Date Time Diastolic blood pressure Systolic blood pressure Body height Body weight Temperature SpO2 Blood Sugar Pulse Respirations 203 33217 2 259.80 NI 203 88438 5 93.00 mm[Hg] - Sitting 137.00 mm[Hg] - Sitting 204 23161 2 259.40 NI 204 89792 1 78.00 mm[Hg] - Sitting 144.00 mm[Hg] - Sitting 205 12626 4 85.00 mm[Hg] - Sitting 142.00 mm[Hg] - Sitting 206 43002 9 76.00 mm[Hg] - Sitting 132.00 mm[Hg] - Sitting 208 14962 9 82.00 mm[Hg] - Sitting 128.00 mm[Hg] - Sitting 75908 209 02584 2 78.00 mm[Hg] - Sitting 130.00 mm[Hg] - Sitting 15842 210 55915 6 80.00 mm[Hg] - Sitting 132.00 mm[Hg] - Sitting 52536 211 02769 5 78.00 mm[Hg] - Sitting 125.00 mm[Hg] - Sitting 08224 216 54253 1 254.10 NI 35219 216 75174 2 79.00 mm[Hg] - Sitting 157.00 mm[Hg] - Sitting 73 NI 254.10 NI 36.30 Tympanic 95.00 % 72.00/ min 16.00/min 48760 216 72512 4 98.80 Tympanic 96502 216 54238 2 78.00 mm[Hg] - Sitting 164.00 mm[Hg] - Sitting 51866 217 17565 3 98.20 Tympanic 02678 217 95765 5 73.00 mm[Hg] - Sitting 159.00 mm[Hg] - Sitting 50362 217 92195 9 98.40 Forehead Scan 87442 218 52690 3 97.90 Tympanic 14327 218 25291 5 77.00 mm[Hg] - Sitting 137.00 mm[Hg] - Sitting 45675 219 55726 0 97.70 Tympanic 54792 219 56721 6 97.60 Tympanic 10598 219 92039 4 76.00 mm[Hg] - Sitting 139.00 mm[Hg] - Sitting 95510 219 44024 4 97.80 Forehead Scan 48812 220 36577 9 97.90 Tympanic 68013 220 83585 9 76.00 mm[Hg] - Sitting 138.00 mm[Hg] - Sitting 41312 220 40362 6 98.10 Tympanic 15000 221 14766 5 67.00 mm[Hg] - Sitting 142.00 mm[Hg] - Sitting 71598 221 62458 8 98.20 Tympanic 60780 221 62481 0 98.30 Tympanic 06833 222 67469 7 98.20 Tympanic 10777 222 66648 8 97.90 Tympanic 99499 223 01247 3 98.20 Tympanic 44979 223 24479 3 98.00 Tympanic 40162 224 73502 0 59.00 mm[Hg] - Sitting 111.00 mm[Hg] - Sitting 98.40 Forehead Scan 95.00 % 56.00/ min 18.00/min 87390 224 32198 9 98.20 Forehead Scan 73557 224 73975 3 97.90 Tympanic 77791 225 35532 4 98.20 Tympanic 73767 225 86978 8 97.50 Forehead Scan 79914 228 21176 0 55.00 mm[Hg] - Sitting 118.00 mm[Hg] - Sitting 98.40 Tympanic 69.00/ min 78254 229 68215 8 78.00 mm[Hg] - Sitting 152.00 mm[Hg] - Sitting 51977 230 60839 0 62.00 mm[Hg] - Sitting 122.00 mm[Hg] - Sitting 49832 231 53502 7 72.00 mm[Hg] - Lying Down 140.00 mm[Hg] - Lying Down 78084 101 11349 3 97.70 Forehead Scan 64643 101 76038 1 254.10 NI 69.00/ min 04099 101 83981 9 72.00 mm[Hg] - Sitting 142.00 mm[Hg] - Sitting 97.70 Tympanic 18.00/min 02580 101 17219 3 72.00 mm[Hg] - Lying Down 142.00 mm[Hg] - Lying Down 81978 102 48362 8 68.00 mm[Hg] - Lying Down 152.00 [...]
--- OUTSIDE RECORDS SUMMARY | 2024-07-26 11:22 | External Medical Summary | Continuity Of Care Document ---
Author Name Unknown Address [address] [address] Organization [facility] () Care Team Providers Care Abstract Manager Name Role Phone DO Pritchett Amy Primary Care Provider [phone] Allergies Allergy Reaction Start Date End Date Status AMINOGLYCOSIDES Active CIPRO Active GENTAMICIN Active NSAIDS (NON-STEROIDAL ANTI-INFLAMMATORY DRUG) 0 Active IBUPROFEN Active QUINOLONES Active VALIUM Active Medications Medication Instructions Dosage Start Date End Date Status Order Date Drug Code Frequency Route of Admin Diagnosis Code Substitutions Allowed Spikevax [id number](1 2y up)(PF) 50 mcg/0.5 mL intramuscul ar suspension [COVID [id number](12 up)(andu)(P F)] 0.5mL Intramuscular 1 time Monitory 15 Minutes post injection for adverse effects; record site/temp For COVID 19 PREVENTION 0.5mL 01/02 Inactiv e 2023 59538 19244 4 1 time Intram uscula r False [facility] - Nurse initials indicate verificatio n that [id number] vaccine was administere d by [facility] Representat jon 1 Intramuscular 1 time ( Indicate vaccine type) For vaccine 1 05/03 Inactiv e 2023 1 time Intram uscula r False Lisinopril 40 mg tablet [generic] TAKE ONE (1) TABLET BY MOUTH IN THE MORNING. For DX- HTN 1 2023 Active 2023 89485 82593 1 Once daily By Mouth False Tizanidine 2 mg tablet [generic] TAKE ONE (1) TABLET BY MOUTH ONCE DAILY For MUSCLE SPASM 1 2023 Active 2023 66069 16514 0 Once daily By Mouth M62.838 False Tamsulosin 0.4 mg capsule [generic] TAKE (1) CAPSULE BY MOUTH AT BEDTIME For SPASMS 1 2023 Active 2023 40082 21433 0 Once daily By Mouth False Aspirin 81 mg tablet Once daily 1 TABLET BY MOUTH IN THE MORNING For DX- CAD DO NOT CRUSH, CHEW OR BREAK 81 mg 06/12 Inactiv e 2023 Once daily By Mouth False Baclofen 20 mg tablet [generic] 20 mg By Mouth 4 times a day For DX- MUSCLE SPASMS 20 mg 12/12 Inactiv e 2023 39336 88151 1 4 times a day By Mouth False Calcium citrate 250 mg tablet Once daily 4 TABLET BY MOUTH For DX- SUPPLEMENT 250 mg calci 12/12 Inactiv e 2023 Once daily By Mouth False Co Q-10 100 mg capsule 100 mg By Mouth Once daily For DX- SUPPLEMENT 100 mg 06/20 Inactiv e 2023 62638 72722 5 Once daily By Mouth False Furosemide 20 mg tablet [generic] 20 mg By Mouth Once daily For DX-CHF 20 mg 12/12 Inactiv e 2023 60880 25290 0 Once daily By Mouth False Gabapentin 300 mg capsule [generic] 300 mg By Mouth 3 times a day For DX- NEUROPATHY 300 mg 12/12 Inactiv e 2023 80327 65312 4 3 times a day By Mouth False Loratadine 10 mg tablet [generic] 10 mg By Mouth Once daily For DX- ALLERGIES 10 mg 2023 Active 2023 74754 18071 1 Once daily By Mouth False Miralax 17 gram/dose oral powder 17 gram/dose By Mouth IN THE MORNING Mix 1 TABLESPOON IN 8 OZ OF FLUID HOLD FOR LOOSE STOOLS For DX- CONSTIPATION 17 gram/do se 12/12 Inactiv e 2023 94623 50086 0 Once daily By Mouth False Paroxetine 30 mg tablet [generic] 30 mg By Mouth Once daily For DX- DEPRESSION 30 mg 2023 00/00 /0000 Active 2023 31408 11562 3 Once daily By Mouth False Potassium citrate ER 15 mEq (1,620 mg) tablet,exte nded release [generic] 15 mEq By Mouth 3 times a day For DX- SUPPLEMENT/DI URETIC USE/ HYPOCITRAUIRA DO NOT CRUSH 15 mEq 12/12 Inactiv e 2023 62177 52687 1 3 times a day By Mouth [...] For DX- DANDRUFF 12/12 Inactiv e 2023 43307 03465 4 3 times a week Topica l False Acetaminoph en 325 mg tablet [generic] TAKE 2 TABS (650MG) BY MOUTH EVERY 4 HOURS NEEDED FOR TEMP >100 NOT TO EXCEED 3GM/24HRS TAKE 2 TABS (650MG) BY MOUTH EVERY 4 HOURS NEEDED FOR TEMP >100 NOT TO EXCEED 3GM/24HRS For DX-FEVER 2 12/12 Inactiv e 2023 64995 41348 0 By Mouth False MILK OF MAGNESIA ADMINISTER 30 ML BY MOUTH ONCE DAILY NEEDED FOR CONSTIPATION X3 DAYS WITH NO BM. For DX- CONSTIPATION 30ML 12/12 Inactiv e 2023 84593 52890 9 By Mouth False Enema Disposable 19 gram-7 gram/118 mL ADMINISTER ONE ENEMA RECTALLY ONCE DAILY NEEDED FOR CONSTIPATION ON DAY 6 OF NO BM For DX- CONSTIPATION 12/12 Inactiv e 2023 24030 07190 1 Rectal False TUMS EXTRA STR 750MG TAKE (1) TABLET BY MOUTH THREE TIMES DAILY NEEDED FOR INDIGESTION For DX- INDIGESTION 1 12/12 Inactiv e 2023 92179 82357 8 By Mouth False Vitamin D3 25 [...] CONSTIPATION 10 mg 12/12 Inactiv e 2023 56233 86629 1 Rectal False Melatonin 3 mg tablet [generic] 3 mg By Mouth As Needed For DX-INSOMMIA 3 mg 12/12 Inactiv e 2023 08883 79020 8 By Mouth False Hydrocortis one 1 % topical cream [generic] 1 % Topical As Needed For DX- PAIN 1 % 12/12 Inactiv e 2023 78819 52118 1 Topica l False HYDROCORTIS ONE/PARMOXI NE [...] 5-10 50 mg 12/20 Inactiv e 2023 24136 34193 0 Every 4 hours as needed By Mouth False Tylenol 325 mg tablet 325 mg By Mouth Every 4 hours as needed For DX- PAIN PRN FOR MILD PAIN, DO NOT EXCEED 3000MG APAP/24 HOURS 325 mg 12/20 Inactiv e 2023 75435 33355 0 Every 4 hours as needed By Mouth False Baclofen 20 mg tablet [generic] 20 mg By Mouth 4 times a day For MUSCLE SPASMS 20 mg 12/20 Inactiv e 2023 63171 25656 1 4 times a day By Mouth False Calcium citrate 250 mg tablet [generic] Once daily TAKE 4 TABLETS (1000MG) BY MOUTH For SUPPLEMENT 1000 MG 06/26 Inactiv e 2023 69798 80590 6 Once daily By Mouth False Dulcolax (bisacodyl) 10 mg rectal suppository 10 mg Rectal Once daily For CONSTIPATION *MAY HOLD FOR LOOSE STOOLS* 10 mg 2023 Active 2023 92918 50053 1 Once daily Rectal False Gabapentin 300 mg capsule [generic] 300 mg By Mouth 3 times a day For NEUROPATHY 300 mg 2023 Active 2023 44150 79996 4 3 times a day By Mouth False Potassium citrate ER 15 mEq (1,620 mg) tablet,exte nded release [generic] 15 mEq By Mouth 3 times a day For SUPPLEMENT/DI URETIC USE/HYPOCITRA URIA 15 mEq 06/11 Inactiv e 2023 10097 66575 1 3 times a day By Mouth False Potassium chloride ER 20 mEq tablet,exte nded release [generic] 20 mEq By Mouth 3 times a day *DO NOT CRUSH, CHEW OR BREAK* For SUPPLEMENT 20 mEq 12/18 Inactiv e 2023 60009 19263 1 3 times a day By Mouth False Tizanidine 4 mg tablet [generic] 4 mg By Mouth Once daily For MUSCLE SPASMS 4 mg 2023 Active 2023 49372 50877 0 Once daily By Mouth False Tylenol 325 mg tablet 2 tabs By Mouth Every 4 hours as needed For Fever >100 DO NOT EXCEED 3000 MG APAP/24 Hours 2 tabs 12/20 Inactiv e 2023 37449 82265 0 Every 4 hours as needed By [...] adjustment of urinary device 07/21/2023 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 07/21 Active N31.9 Neuromuscular dysfun ction of bladder, unspecified 07/21/2023 Active VITAL SIGNS Date Time Diastolic blood pressure Systolic blood pressure Body height Body weight Temperature SpO2 Blood Sugar Pulse Respirations 205 43068 4 85.00 mm[Hg] - Sitting 142.00 mm[Hg] - Sitting 206 95919 9 76.00 mm[Hg] - Sitting 132.00 mm[Hg] - Sitting 208 27115 9 82.00 mm[Hg] - Sitting 128.00 mm[Hg] - Sitting 209 17394 2 78.00 mm[Hg] - Sitting 130.00 mm[Hg] - Sitting 210 01997 6 80.00 mm[Hg] - Sitting 132.00 mm[Hg] - Sitting 20059 211 95314 5 78.00 mm[Hg] - Sitting 125.00 mm[Hg] - Sitting 32637 216 03424 1 [place]10 [place] [address] 216 90133 2 79.00 mm[Hg] - Sitting 157.00 mm[Hg] - Sitting 73 NI 254.10 NI 36.30 Tympanic 95.00 % 72.00/ min 16.00/min 75252 216 48921 4 98.80 Tympanic 40033 216 30927 2 78.00 mm[Hg] - Sitting 164.00 mm[Hg] - Sitting 19736 217 78220 3 98.20 Tympanic 16660 217 78772 5 73.00 mm[Hg] - Sitting 159.00 mm[Hg] - Sitting 57437 217 20642 9 98.40 Forehead Scan 13893 218 52112 3 97.90 Tympanic 74897 218 48979 5 77.00 mm[Hg] - Sitting 137.00 mm[Hg] - Sitting 18604 219 81072 0 97.70 Tympanic 93355 219 36119 6 97.60 Tympanic 41466 219 96197 4 76.00 mm[Hg] - Sitting 139.00 mm[Hg] - Sitting 53551 219 45559 4 97.80 Forehead Scan 05392 220 69906 9 97.90 Tympanic 23918 220 69282 9 76.00 mm[Hg] - Sitting 138.00 mm[Hg] - Sitting 21051 220 65063 6 98.10 Tympanic 00428 221 96431 5 67.00 mm[Hg] - Sitting 142.00 mm[Hg] - Sitting 36765 221 00806 8 98.20 Tympanic 81528 221 35320 0 98.30 Tympanic 72221 222 04596 7 98.20 Tympanic 76594 222 37821 8 97.90 Tympanic 01681 223 23820 3 98.20 Tympanic Immunizations Vaccine Date Status COVID-19 08/02/2020 [...]
--- OUTSIDE RECORDS SUMMARY | 2024-07-26 11:22 | External Medical Summary | Continuity Of Care Document ---
Author Name Unknown Address [address] [address] Organization [facility] () Care Team Providers Care Compliance Assistant Name Role Phone DO Pritchett Amy Primary Care Provider [phone] Allergies Allergy Reaction Start Date End Date Status AMINOGLYCOSIDES Active CIPRO Active GENTAMICIN Active NSAIDS (NON-STEROIDAL ANTI-INFLAMMATORY DRUG) 0 Active IBUPROFEN Active QUINOLONES Active VALIUM Active Medications Medication Instructions Dosage Start Date End Date Status Order Date Drug Code Frequency Route of Admin Diagnosis Code Substitutions Allowed Spikevax 7403-8661(1 2y up)(PF) 50 mcg/0.5 mL intramuscul ar suspension [COVID [id number](12 up)(andu)(P F)] 0.5mL Intramuscular 1 time Monitory 15 Minutes post injection for adverse effects; record site/temp For COVID 19 PREVENTION 0.5mL 01/02 Inactiv e 2023 01228 59177 4 1 time Intram uscula r False [facility] - Nurse initials indicate verificatio n that [id number] vaccine was administere d by [facility] Representat jon 1 Intramuscular 1 time ( Indicate vaccine type) For vaccine 1 05/03 Inactiv e 2023 1 time Intram uscula r False Lisinopril 40 mg tablet [generic] TAKE ONE (1) TABLET BY MOUTH IN THE MORNING. For DX- HTN 1 2023 Active 2023 57972 98722 1 Once daily By Mouth False Tizanidine 2 mg tablet [generic] TAKE ONE (1) TABLET BY MOUTH ONCE DAILY For MUSCLE SPASM 1 2023 Active 2023 15578 00531 0 Once daily By Mouth M62.838 False Tamsulosin 0.4 mg capsule [generic] TAKE (1) CAPSULE BY MOUTH AT BEDTIME For SPASMS 1 2023 Active 2023 18520 21356 0 Once daily By Mouth False Aspirin 81 mg tablet Once daily 1 TABLET BY MOUTH IN THE MORNING For DX- CAD DO NOT CRUSH, CHEW OR BREAK 81 mg 06/12 Inactiv e 2023 Once daily By Mouth False Baclofen 20 mg tablet [generic] 20 mg By Mouth 4 times a day For DX- MUSCLE SPASMS 20 mg 12/12 Inactiv e 2023 86394 77269 1 4 times a day By Mouth False Calcium citrate 250 mg tablet Once daily 4 TABLET BY MOUTH For DX- SUPPLEMENT 250 mg calci 12/12 Inactiv e 2023 Once daily By Mouth False Co Q-10 100 mg capsule 100 mg By Mouth Once daily For DX- SUPPLEMENT 100 mg 06/20 Inactiv e 2023 63165 76447 5 Once daily By Mouth False Furosemide 20 mg tablet [generic] 20 mg By Mouth Once daily For DX-CHF 20 mg 12/12 Inactiv e 2023 20894 39757 0 Once daily By Mouth False Gabapentin 300 mg capsule [generic] 300 mg By Mouth 3 times a day For DX- NEUROPATHY 300 mg 12/12 Inactiv e 2023 04592 16090 4 3 times a day By Mouth False Loratadine 10 mg tablet [generic] 10 mg By Mouth Once daily For DX- ALLERGIES 10 mg 2023 Active 2023 64210 44009 1 Once daily By Mouth False Miralax 17 gram/dose oral powder 17 gram/dose By Mouth IN THE MORNING Mix 1 TABLESPOON IN 8 OZ OF FLUID HOLD FOR LOOSE STOOLS For DX- CONSTIPATION 17 gram/do se 12/12 Inactiv e 2023 98016 34303 0 Once daily By Mouth False Paroxetine 30 mg tablet [generic] 30 mg By Mouth Once daily For DX- DEPRESSION 30 mg 2023 00/00 /0000 Active 2023 59824 18453 3 Once daily By Mouth False Potassium citrate ER 15 mEq (1,620 mg) tablet,exte nded release [generic] 15 mEq By Mouth 3 times a day For DX- SUPPLEMENT/DI URETIC USE/ HYPOCITRAUIRA DO NOT CRUSH 15 mEq 12/12 Inactiv e 2023 89803 95758 1 3 times a day By Mouth [...] For DX- DANDRUFF 12/12 Inactiv e 2023 37697 28027 4 3 times a week Topica l False Acetaminoph en 325 mg tablet [generic] TAKE 2 TABS (650MG) BY MOUTH EVERY 4 HOURS NEEDED FOR TEMP >100 NOT TO EXCEED 3GM/24HRS TAKE 2 TABS (650MG) BY MOUTH EVERY 4 HOURS NEEDED FOR TEMP >100 NOT TO EXCEED 3GM/24HRS For DX-FEVER 2 12/12 Inactiv e 2023 05838 88800 0 By Mouth False MILK OF MAGNESIA ADMINISTER 30 ML BY MOUTH ONCE DAILY NEEDED FOR CONSTIPATION X3 DAYS WITH NO BM. For DX- CONSTIPATION 30ML 12/12 Inactiv e 2023 10948 80692 9 By Mouth False Enema Disposable 19 gram-7 gram/118 mL ADMINISTER ONE ENEMA RECTALLY ONCE DAILY NEEDED FOR CONSTIPATION ON DAY 6 OF NO BM For DX- CONSTIPATION 12/12 Inactiv e 2023 68879 28520 1 Rectal False TUMS EXTRA STR 750MG TAKE (1) TABLET BY MOUTH THREE TIMES DAILY NEEDED FOR INDIGESTION For DX- INDIGESTION 1 12/12 Inactiv e 2023 05797 08693 8 By Mouth False Vitamin D3 25 [...] CONSTIPATION 10 mg 12/12 Inactiv e 2023 87706 36395 1 Rectal False Melatonin 3 mg tablet [generic] 3 mg By Mouth As Needed For DX-INSOMMIA 3 mg 12/12 Inactiv e 2023 06561 15149 8 By Mouth False Hydrocortis one 1 % topical cream [generic] 1 % Topical As Needed For DX- PAIN 1 % 12/12 Inactiv e 2023 18244 92200 1 Topica l False HYDROCORTIS ONE/PARMOXI NE [...] 5-10 50 mg 12/20 Inactiv e 2023 82712 00892 0 Every 4 hours as needed By Mouth False Tylenol 325 mg tablet 325 mg By Mouth Every 4 hours as needed For DX- PAIN PRN FOR MILD PAIN, DO NOT EXCEED 3000MG APAP/24 HOURS 325 mg 12/20 Inactiv e 2023 15098 20640 0 Every 4 hours as needed By Mouth False Baclofen 20 mg tablet [generic] 20 mg By Mouth 4 times a day For MUSCLE SPASMS 20 mg 12/20 Inactiv e 2023 40305 73958 1 4 times a day By Mouth False Calcium citrate 250 mg tablet [generic] Once daily TAKE 4 TABLETS (1000MG) BY MOUTH For SUPPLEMENT 1000 MG 06/26 Inactiv e 2023 38374 49017 6 Once daily By Mouth False Dulcolax (bisacodyl) 10 mg rectal suppository 10 mg Rectal Once daily For CONSTIPATION *MAY HOLD FOR LOOSE STOOLS* 10 mg 2023 Active 2023 88607 32690 1 Once daily Rectal False Gabapentin 300 mg capsule [generic] 300 mg By Mouth 3 times a day For NEUROPATHY 300 mg 2023 Active 2023 79037 04802 4 3 times a day By Mouth False Potassium citrate ER 15 mEq (1,620 mg) tablet,exte nded release [generic] 15 mEq By Mouth 3 times a day For SUPPLEMENT/DI URETIC USE/HYPOCITRA URIA 15 mEq 06/11 Inactiv e 2023 02412 80193 1 3 times a day By Mouth False Potassium chloride ER 20 mEq tablet,exte nded release [generic] 20 mEq By Mouth 3 times a day *DO NOT CRUSH, CHEW OR BREAK* For SUPPLEMENT 20 mEq 12/18 Inactiv e 2023 56351 64096 1 3 times a day By Mouth False Tizanidine 4 mg tablet [generic] 4 mg By Mouth Once daily For MUSCLE SPASMS 4 mg 2023 Active 2023 47294 82053 0 Once daily By Mouth False Tylenol 325 mg tablet 2 tabs By Mouth Every 4 hours as needed For Fever >100 DO NOT EXCEED 3000 MG APAP/24 Hours 2 tabs 12/20 Inactiv e 2023 92713 49044 0 Every 4 hours as needed By [...] adjustment of urinary device 07/21/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 Active N31.9 Neuromuscular dysfun ction of bladder, unspecified 07/21/2023 Active VITAL SIGNS Date Time Diastolic blood pressure Systolic blood pressure Body height Body weight Temperature SpO2 Blood Sugar Pulse Respirations 204 20332 2 259.40 NI 204 41310 1 78.00 mm[Hg] - Sitting 144.00 mm[Hg] - Sitting 205 64038 4 85.00 mm[Hg] - Sitting 142.00 mm[Hg] - Sitting 206 57621 9 76.00 mm[Hg] - Sitting 132.00 mm[Hg] - Sitting 208 33616 9 82.00 mm[Hg] - Sitting 128.00 mm[Hg] - Sitting 209 71264 2 78.00 mm[Hg] - Sitting 130.00 mm[Hg] - Sitting 23660 210 88928 6 80.00 mm[Hg] - Sitting 132.00 mm[Hg] - Sitting 33992 211 08434 5 78.00 mm[Hg] - Sitting 125.00 mm[Hg] - Sitting 77082 216 85974 1 254.10 NI 08628 216 42870 2 79.00 mm[Hg] - Sitting 157.00 mm[Hg] - Sitting 73 NI 254.10 NI 36.30 Tympanic 95.00 % 72.00/ min 16.00/min 96530 216 30797 4 98.80 Tympanic 24007 216 84612 2 78.00 mm[Hg] - Sitting 164.00 mm[Hg] - Sitting 39047 217 98538 3 98.20 Tympanic 05363 217 99764 5 73.00 mm[Hg] - Sitting 159.00 mm[Hg] - Sitting 37410 217 33151 9 98.40 Forehead Scan 27433 218 18942 3 97.90 Tympanic 59511 218 70342 5 77.00 mm[Hg] - Sitting 137.00 mm[Hg] - Sitting 67512 219 30938 0 97.70 Tympanic 57303 219 25287 6 97.60 Tympanic 86187 219 46023 4 76.00 mm[Hg] - Sitting 139.00 mm[Hg] - Sitting 55761 219 23682 4 97.80 Forehead Scan 16524 220 66622 9 97.90 Tympanic 67154 220 36936 9 76.00 mm[Hg] - Sitting 138.00 mm[Hg] - Sitting 43997 220 14156 6 98.10 Tympanic 65780 221 87216 5 67.00 mm[Hg] - Sitting 142.00 mm[Hg] - Sitting 15865 221 90720 8 98.20 Tympanic 79044 221 90676 0 98.30 Tympanic 54760 222 01276 7 98.20 Tympanic 65957 222 18684 8 97.90 Tympanic 49723 223 23814 3 98.20 Tympanic 57849 223 44804 3 98.00 Tympanic 00767 224 70026 0 59.00 mm[Hg] - Sitting 111.00 mm[Hg] - Sitting 98.40 Forehead Scan 95.00 % 56.00/ min 18.00/min 24030 224 05387 9 98.20 Forehead Scan 63572 224 23560 3 97.90 Tympanic 97612 225 82374 4 98.20 Tympanic 23964 225 17467 8 97.50 Forehead Scan 99999 228 22788 0 55.00 mm[Hg] - Sitting 118.00 mm[Hg] - Sitting 98.40 Tympanic 69.00/ min 34074 229 73868 8 78.00 mm[Hg] - Sitting 152.00 mm[Hg] - Sitting 51369 230 32559 0 62.00 mm[Hg] - Sitting 122.00 mm[Hg] - Sitting 30695 231 16313 7 72.00 mm[Hg] - Lying Down 140.00 mm[Hg] - Lying Down 42680 101 49145 3 97.70 Forehead Scan 33630 101 07517 1 254.10 NI 69.00/ min 78713 101 75019 9 72.00 mm[Hg] - Sitting 142.00 mm[Hg] - Sitting 97.70 Tympanic 18.00/min 45134 101 16174 3 72.00 mm[Hg] - Lying Down 142.00 mm[Hg] - Lying Down 68223 102 63618 8 68.00 mm[Hg] - Lying Down 152.00 mm[Hg] - Lying Down 91823 103 87168 5 74.00 mm[Hg] - Sitting 158.00 mm[Hg] [...]
--- OUTSIDE RECORDS SUMMARY | 2024-07-26 11:22 | External Medical Summary | Continuity Of Care Document ---
Author Name Unknown Address [address] [place] [address] Organization [facility] () Care Team Providers Care Network Operations Lead Name Role Phone DO Pritchett Amy Primary Care Provider [phone] Allergies Allergy Reaction Start Date End Date Status AMINOGLYCOSIDES Active CIPRO Active GENTAMICIN Active NSAIDS (NON-STEROIDAL ANTI-INFLAMMATORY DRUG) 0 Active IBUPROFEN Active QUINOLONES Active VALIUM Active Medications Medication Instructions Dosage Start Date End Date Status Order Date Drug Code Frequency Route of Admin Diagnosis Code Substitutions Allowed Spikevax [id number](1 2y up)(PF) 50 mcg/0.5 mL intramuscul ar suspension [COVID [id number](12 up)(andu)(P F)] 0.5mL Intramuscular 1 time Monitory 15 Minutes post injection for adverse effects; record site/temp For COVID 19 PREVENTION 0.5mL 01/02 Inactiv e 2023 86983 20489 4 1 time Intram uscula r False [facility] - Nurse initials indicate verificatio n that [id number] vaccine was administere d by [facility] jon 1 Intramuscular 1 time ( Indicate vaccine type) For vaccine 1 05/03 Inactiv e 2023 1 time Intram uscula r False Lisinopril 40 mg tablet [generic] TAKE ONE (1) TABLET BY MOUTH IN THE MORNING. For DX- HTN 1 2023 Active 2023 41463 09121 1 Once daily By Mouth False Tizanidine 2 mg tablet [generic] TAKE ONE (1) TABLET BY MOUTH ONCE DAILY For MUSCLE SPASM 1 2023 Active 2023 50446 89699 0 Once daily By Mouth M62.838 False Tamsulosin 0.4 mg capsule [generic] TAKE (1) CAPSULE BY MOUTH AT BEDTIME For SPASMS 1 2023 Active 2023 88592 91532 0 Once daily By Mouth False Aspirin 81 mg tablet Once daily 1 TABLET BY MOUTH IN THE MORNING For DX- CAD DO NOT CRUSH, CHEW OR BREAK 81 mg 06/12 Inactiv e 2023 Once daily By Mouth False Baclofen 20 mg tablet [generic] 20 mg By Mouth 4 times a day For DX- MUSCLE SPASMS 20 mg 12/12 Inactiv e 2023 96725 90230 1 4 times a day By Mouth False Calcium citrate 250 mg tablet Once daily 4 TABLET BY MOUTH For DX- SUPPLEMENT 250 mg calci 12/12 Inactiv e 2023 Once daily By Mouth False Co Q-10 100 mg capsule 100 mg By Mouth Once daily For DX- SUPPLEMENT 100 mg 06/20 Inactiv e 2023 12930 12223 5 Once daily By Mouth False Furosemide 20 mg tablet [generic] 20 mg By Mouth Once daily For DX-CHF 20 mg 12/12 Inactiv e 2023 48763 95737 0 Once daily By Mouth False Gabapentin 300 mg capsule [generic] 300 mg By Mouth 3 times a day For DX- NEUROPATHY 300 mg 12/12 Inactiv e 2023 87895 63842 4 3 times a day By Mouth False Loratadine 10 mg tablet [generic] 10 mg By Mouth Once daily For DX- ALLERGIES 10 mg 2023 Active 2023 91199 26980 1 Once daily By Mouth False Miralax 17 gram/dose oral powder 17 gram/dose By Mouth IN THE MORNING Mix 1 TABLESPOON IN 8 OZ OF FLUID HOLD FOR LOOSE STOOLS For DX- CONSTIPATION 17 gram/do se 12/12 Inactiv e 2023 86400 38748 0 Once daily By Mouth False Paroxetine 30 mg tablet [generic] 30 mg By Mouth Once daily For DX- DEPRESSION 30 mg 2023 00/00 /0000 Active 2023 01967 72185 3 Once daily By Mouth False Potassium citrate ER 15 mEq (1,620 mg) tablet,exte nded release [generic] 15 mEq By Mouth 3 times a day For DX- SUPPLEMENT/DI URETIC USE/ HYPOCITRAUIRA DO NOT CRUSH 15 mEq 12/12 Inactiv e 2023 74999 33207 1 3 times a day By Mouth [...] For DX- DANDRUFF 12/12 Inactiv e 2023 65031 86973 4 3 times a week Topica l False Acetaminoph en 325 mg tablet [generic] TAKE 2 TABS (650MG) BY MOUTH EVERY 4 HOURS NEEDED FOR TEMP >100 NOT TO EXCEED 3GM/24HRS TAKE 2 TABS (650MG) BY MOUTH EVERY 4 HOURS NEEDED FOR TEMP >100 NOT TO EXCEED 3GM/24HRS For DX-FEVER 2 12/12 Inactiv e 2023 46766 40820 0 By Mouth False MILK OF MAGNESIA ADMINISTER 30 ML BY MOUTH ONCE DAILY NEEDED FOR CONSTIPATION X3 DAYS WITH NO BM. For DX- CONSTIPATION 30ML 12/12 Inactiv e 2023 85318 67883 9 By Mouth False Enema Disposable 19 gram-7 gram/118 mL ADMINISTER ONE ENEMA RECTALLY ONCE DAILY NEEDED FOR CONSTIPATION ON DAY 6 OF NO BM For DX- CONSTIPATION 12/12 Inactiv e 2023 77020 24437 1 Rectal False TUMS EXTRA STR 750MG TAKE (1) TABLET BY MOUTH THREE TIMES DAILY NEEDED FOR INDIGESTION For DX- INDIGESTION 1 12/12 Inactiv e 2023 39979 19406 8 By Mouth False Vitamin D3 25 [...] CONSTIPATION 10 mg 12/12 Inactiv e 2023 01146 98186 1 Rectal False Melatonin 3 mg tablet [generic] 3 mg By Mouth As Needed For DX-INSOMMIA 3 mg 12/12 Inactiv e 2023 89297 53835 8 By Mouth False Hydrocortis one 1 % topical cream [generic] 1 % Topical As Needed For DX- PAIN 1 % 12/12 Inactiv e 2023 55912 77536 1 Topica l False HYDROCORTIS ONE/PARMOXI NE [...] 5-10 50 mg 12/20 Inactiv e 2023 14670 85216 0 Every 4 hours as needed By Mouth False Tylenol 325 mg tablet 325 mg By Mouth Every 4 hours as needed For DX- PAIN PRN FOR MILD PAIN, DO NOT EXCEED 3000MG APAP/24 HOURS 325 mg 12/20 Inactiv e 2023 08854 58555 0 Every 4 hours as needed By Mouth False Baclofen 20 mg tablet [generic] 20 mg By Mouth 4 times a day For MUSCLE SPASMS 20 mg 12/20 Inactiv e 2023 00874 85101 1 4 times a day By Mouth False Calcium citrate 250 mg tablet [generic] Once daily TAKE 4 TABLETS (1000MG) BY MOUTH For SUPPLEMENT 1000 MG 06/26 Inactiv e 2023 00497 20642 6 Once daily By Mouth False Dulcolax (bisacodyl) 10 mg rectal suppository 10 mg Rectal Once daily For CONSTIPATION *MAY HOLD FOR LOOSE STOOLS* 10 mg 2023 Active 2023 69636 84842 1 Once daily Rectal False Gabapentin 300 mg capsule [generic] 300 mg By Mouth 3 times a day For NEUROPATHY 300 mg 2023 Active 2023 62128 33275 4 3 times a day By Mouth False Potassium citrate ER 15 mEq (1,620 mg) tablet,exte nded release [generic] 15 mEq By Mouth 3 times a day For SUPPLEMENT/DI URETIC USE/HYPOCITRA URIA 15 mEq 06/11 Inactiv e 2023 99377 83965 1 3 times a day By Mouth False Potassium chloride ER 20 mEq tablet,exte nded release [generic] 20 mEq By Mouth 3 times a day *DO NOT CRUSH, CHEW OR BREAK* For SUPPLEMENT 20 mEq 12/18 Inactiv e 2023 10442 06747 1 3 times a day By Mouth False Tizanidine 4 mg tablet [generic] 4 mg By Mouth Once daily For MUSCLE SPASMS 4 mg 2023 Active 2023 13020 81271 0 Once daily By Mouth False Tylenol 325 mg tablet 2 tabs By Mouth Every 4 hours as needed For Fever >100 DO NOT EXCEED 3000 MG APAP/24 Hours 2 tabs 12/20 Inactiv e 2023 57860 95437 0 Every 4 hours as needed By Mouth False Dulcolax (bisacodyl) 10 mg rectal suppository Daily as needed For Constipation 1 sup 12/20 Inactiv e 2023 96372 61013 1 Daily as needed Rectal False Fleet Enema 19 gram-7 gram/118 mL 1 Rectal Daily as neededFor Constipation 1 12/20 Inactiv e 2023 70796 20358 6 Daily as needed Rectal False Milk of Magnesia 400 mg/5 mL oral suspension [Magnesium hydroxide] PRN 30ml By Mouth Daily as needed for constipation one time daily if no BM, on day 4 of no BM (PRN refer to instructions) For Constipation For Constipatioin 30ml 12/20 Inactiv e 2023 18929 33351 6 1 time By Mouth False Melatonin 3 mg tablet [generic] 3 mg By Mouth Once daily As Needed For INSOMNIA 3 mg 12/20 Inactiv e 2023 63521 69256 8 Once daily By Mouth False Hydrocortis one 1 % topical cream [generic] 1 % Rectal Four times daily as needed For hemorroid pain 1 % 12/20 Inactiv e 2023 07808 94219 1 Four times daily as needed Rectal False X-STGH ANTACID 750MG CHEW TAKE (1) TABLET BY MOUTH THREE TIMES DAILY NEEDED FOR INDIGESTION 12/20 Inactiv e 2023 21772 78366 4 Three times daily as needed Saline Mist 0.65 % nasal spray aerosol 0.65 % Nares Four times daily as needed For DRYNESS 0.65 % 12/20 Inactiv e 2023 92909 13243 8 Four times daily as needed Nares False Vicks Vaporub 4.7 %-1.2 %-2.6 % topical ointment Apply topically to chest Three times daily as needed For CONGESTION 4.7-1.2 -2.6 12/20 Inactiv e 2023 06415 04347 1 Three times daily as needed Topica l False VITAMIN D3 2000U CAP TAKE ONE (1) CAPSULE BY MOUTH DAILY* DO NOT CRUSH, CHEW OR BREAK* For Supplement 1 capsule 12/19 Inactiv e 2023 64102 76959 0 Once daily By Mouth False Potassium chloride ER 20 mEq tablet,exte nded release(par t/cryst) [generic] TAKE (1) TABLET BY MOUTH THREE TIMES DAILY (MORNING, AFTERNOON, EVENING)*DO NOT CRUSH, CHEW, OR BREAK* For SUPPLEMENT 20 MEQ 06/11 Inactiv e 2023 84709 45997 5 3 times a day By Mouth False Aspirin 81 mg tablet,camron yed release [generic] TAKE ONE (1) TABLET BY MOUTH ONCE DAILY*DO NOT CRUSH, CHEW OR BREAK* For CAD 81 MG 12/22 Inactiv e 2023 26008 87470 0 Once daily By Mouth False Furosemide 20 mg tablet [generic] TAKE 1 AND 1/2 TABLETS (30MG) BY MOUTH ONCE DAILY For CHF 30mg 2023 Active 2023 88968 09223 1 Once daily By Mouth False Polyethylen e glycol 3350 17 gram/dose oral powder [generic] MIX 17 GRAMS (1 CAPFUL) IN 60Z OF LIQUID AND DRINK BY MOUTH ONCE DAILY *HOLD FOR LOOSE STOOLS* For constipation 17 g 2023 Active 2023 75052 19594 3 Once daily By Mouth False Vitamin D3 50 mcg (2,000 unit) capsule Once daily TAKE ONE (1) CAPSULE BY MOUTH DAILY* DO NOT CRUSH, CHEW OR BREAK* For Supplement 1 capsule 02/07 Inactiv e 2023 16006 26425 2 Once daily By Mouth False Fleet Enema 19 gram-7 gram/118 mL 1 Rectal Daily as neededFor Constipation 1 2023 0000 Active 2023 32513 90238 6 Daily as needed Rectal False Tums E-X 300 mg (as calcium carbonate 750 mg) chewable tablet 1 tab By Mouth TAKE (1) TABLET BY MOUTH THREE TIMES DAILY NEEDED FOR INDIGESTION 1 tab 202300 /0000 Active 2023 34988 54299 1 Three times daily as needed By Mouth False Tylenol 325 mg tablet 2 tabs By Mouth Every 4 hours as needed For Fever >100 DO NOT EXCEED 3000 MG APAP/24 Hours 2 tabs 202300 /0000 Active 2023 18811 45025 0 Every 4 hours as needed By Mouth False Vicks Vaporub 4.7 %-1.2 %-2.6 % topical ointment Apply topically to chest Three times daily as needed For CONGESTION topical 202300 Active 2023 61923 16938 1 Three times daily as needed Topica l False Tylenol 325 mg tablet 2 tabs By Mouth Every 4 hours as needed For DX- PAIN PRN FOR MILD PAIN, DO NOT EXCEED 3000MG APAP/24 HOURS 2 tabs 202300 Active 2023 57122 75346 0 Every 4 hours as needed By Mouth False Tramadol 50 mg tablet [generic] 1 tab By Mouth Every 4 hours as needed For DX- PAIN 5-10 1 tab 03/10 Inactiv e 2023 90108 98268 0 Every 4 hours as needed By Mouth False Saline Mist 0.65 % nasal spray aerosol 2 sprays Nares Four times daily as needed For DRYNESS 2 sprays 202300 / Active 2023 67325 97962 8 Four times daily as needed Nares False Dulcolax (bisacodyl) 10 mg rectal suppository Daily as needed For Constipation 1 sup 202300 / Active 2023 30043 05322 1 Daily as needed Rectal False Hydrocortis one-pramoxi ne 1 %-1 % rectal cream [generic] 1 mague Rectal Four times daily as needed For hemorroid pain 1 mague 202300 /0000 Active 2023 09625 39258 4 Four times daily as needed Rectal False Melatonin 3 mg tablet [generic] 1 tab By Mouth At bedtime as needed For INSOMNIA 1 tab 12/24 Inactiv e 2023 86151 04894 8 At bedtime as needed By Mouth False Milk of Magnesia 400 mg/5 mL oral suspension 30ml By Mouth Daily as needed Daily as needed for constipation one time daily if no BM, on day 4 of no BM (PRN refer to instructions) For Constipation For Constipatioin 30ml 2023 Active 2023 12093 35062 2 Daily as needed By Mouth False Baclofen 20 mg tablet [generic] 20 mg By Mouth 4 times a day For MUSCLE SPASMS 20 mg 2023 Active 2023 08789 23785 1 4 times a day By Mouth False Melatonin 3 mg tablet [generic] 1 tab By Mouth At bedtime as needed For INSOMNIA 1 tab 2023 Active 2023 41410 03587 8 At bedtime as needed By Mouth False Bactrim DS 800 mg-160 mg tablet 1 tab By Mouth Twice daily For URINARY TRACT INFECTION, SITE NOT SPECIFIED 1 tab 01/06 Inactiv e 2023 45550 80258 1 Twice daily By Mouth N39.0 False Cefdinir 300 mg capsule [generic] 300 mg By Mouth Twice daily For UTI 300 mg 01/07 Inactiv e 2023 57752 45737 0 Twice daily By Mouth False Cefdinir 300 mg capsule [generic] 300 mg By Mouth Twice daily For UTI 300 mg 01/17 Inactiv e 2023 95023 96789 0 Twice daily By Mouth False Zyrtec 10 mg tablet 10 mg By Mouth Once daily For sinus congestion 10 mg 01/22 Inactiv e 2023 82261 72523 0 Once daily By Mouth False Tobramycin 0.3 %-dexametha sone 0.1 % eye drops,suspe nsion [generic] 0.3-0.1 % Left Eye 4 times a day For eye infection 0.3-0.1 % 02/05 Inactiv e 2023 06673 12970 5 4 times a day Left Eye False Fluconazole 150 mg tablet [generic] 150 mg By Mouth 1 time For yeast infection 150 mg 02/15 Inactiv e 2023 73921 66454 2 1 time By Mouth False Tramadol 50 mg tablet [generic] 1 tab By Mouth Every 4 hours as needed For DX- PAIN 5-10 1 tab 2023 00/00 /0000 Active 2023 89796 58641 0 Every 4 hours as needed By Mouth False Tobramycin 0.3 %-dexametha sone 0.1 % eye drops,suspe nsion [generic] 1 drop Left Eye 4 times a day For Inflammation of left eye 1 drop 05/08 Inactiv e 2023 32414 80839 5 4 times a day Left Eye False Voltaren Arthritis Pain 1 % topical gel 2 gm Topical Twice daily to rigth shoulder for 2 weeks For pain 2 gm 05/08 Inactiv e 2023 81124 64016 1 Twice daily Topica l False Chlorthalid one 25 mg tablet [generic] 12.5mg By Mouth Once daily For HTN 12.5mg 05/06 Inactiv e 2023 40670 83550 0 Once daily By Mouth False Chlorthalid one 25 mg tablet [generic] 12.5mg By Mouth Once daily For HTN 12.5mg 05/07 Inactiv e 2023 97465 21236 0 Once daily By Mouth False Chlorthalid one 25 mg tablet [generic] 05/07 Inactiv e 2023 60798 98258 0 Chlorthalid one 25 mg tablet [generic] 12.5mg By Mouth Once daily For HTN 12.5mg 06/26 Inactiv e 2023 95622 48781 0 Once daily By Mouth False Norvasc 5 mg tablet 5mg By Mouth Once daily, hold medication if systolic is less than 90 For HYPERTENSIVE HEART DISEASE WITHOUT HEART FAILURE 5mg 06/03 Inactiv e 2023 55614 53317 1 Once daily By Mouth I11.9 False Norvasc 5 mg tablet 5mg By Mouth Once daily, hold medication if systolic is less than 90 For HYPERTENSIVE HEART DISEASE WITHOUT HEART FAILURE 5mg 06/03 Inactiv e 2023 71919 48250 1 Once daily By Mouth I11.9 False Norvasc 5 mg tablet 5mg By Mouth Once daily, hold medication if systolic is less than 90 For HYPERTENSIVE HEART DISEASE WITHOUT HEART FAILURE 5mg 06/26 Inactiv e 2023 35042 25182 1 Once daily By Mouth I11.9 False [...] 10 mg 2023 00/00 /0000 Active 2023 51020 46742 1 Once daily By Mouth False DISCONTINUE [...] CAD 81 mg 06/14 Inactiv e 2023 17972 50408 9 Once daily By Mouth False Aspirin 81 mg tablet,camron yed release [generic] 06/14 Inactiv e 2023 83831 13289 9 Aspirin 81 mg tablet,camron yed release [generic] 81 mg By Mouth Once daily Do not crush, chew, or break For CAD 81 mg 06/154 Inactiv e 2023 98150 40629 9 Once daily By Mouth False Cefpodoxime 200 mg tablet [generic] 200mg By Mouth Twice daily For UTI 200mg 07/04 Inactiv e 2023 42440 25280 0 Twice daily By Mouth False Calcium citrate 250 mg tablet [generic] 06/26 Inactiv e 2023 08168 74076 6 Calcium citrate 250 mg tablet [generic] Once daily TAKE 4 TABLETS (1000MG) BY MOUTH For SUPPLEMENT 500 MG 2023 Active 2023 09386 93570 6 Once daily By Mouth False Norvasc 5 mg tablet 7.5 mg By Mouth Once daily Hold medication if SBP <90 For HYPERTENSIVE HEART DISEASE WITHOUT HEART FAILURE 7.5 mg 06/30 Inactiv e 2023 09118 97526 1 Once daily By Mouth I11.9 False Norvasc 5 mg tablet 7.5 mg By Mouth Once daily Hold medication if SBP <90 For HYPERTENSIVE HEART DISEASE WITHOUT HEART FAILURE 7.5 mg 07/06 Inactiv e 2023 85848 54394 1 Once daily By Mouth I11.9 False Simethicone 125 mg capsule [generic] 2 capule By Mouth Twice daily as needed For bloating/gas pain 2 capule 2023 Active 2023 33075 81121 0 Twice daily as needed By Mouth False Cepacol Sore Throat (benzocaine -menthol) 15 mg-2.6 mg lozenges 2 lozenges By Mouth Every 6 hours as needed For sore throat 2 lozenge s 2023 Active 2023 44474 12874 6 Every 6 hours as needed By Mouth False Cefepime 1 gram solution for injection [generic] 1g Intramuscular Every 12 hours 1g intramuscular ly ever 12 hours For UTI 1g 07/06 Inactiv e 2023 00532 85523 4 Every 12 hours Intram uscula r False Cefepime 1 gram solution for injection [generic] 07/06 Inactiv e 2023 46573 04057 4 Cefepime 1 gram solution for injection [generic] 1g Intramuscular Every 12 hours 1g intramuscular ly ever 12 hours For UTI Reconstitute with 2.4 ML of NSS. 1g 07/08 Inactiv e 2023 87634 09041 4 Every 12 hours Intram uscula r False Norvasc 5 mg tablet 07/06 Inactiv e 2023 76079 27548 1 I11.9 Norvasc 5 mg tablet 7.5 mg By Mouth Once daily Hold medication if SBP <90 For HYPERTENSIVE HEART DISEASE WITHOUT HEART FAILURE 7.5 mg 2023 000000 Active 2023 54164 69494 1 Once daily By Mouth I11.9 False Cefepime 1 gram solution for injection [generic] 07/08 Inactiv e 2023 73080 27646 4 Cefepime 1 gram solution for injection [generic] 1g Intramuscular Every 12 hours 1g intramuscular ly ever 12 hours For UTI Reconstitute with 2.4 ML of NSS. 1g 07/08 Inactiv e 2023 21389 89682 4 Every 12 hours Intram uscula r False Cefepime 1 gram solution for injection [generic] 07/08 Inactiv e 2023 45943 63784 4 Cefepime 1 gram solution for injection [generic] 1g Intramuscular Every 12 hours 1g intramuscular ly ever 12 hours For UTI Reconstitute with 2.4 ML of NSS. 1g 07/11 Inactiv e 2023 26415 47101 4 Every 12 hours Intram uscula r False Nystatin 100,000 unit/gram topical cream [generic] 100,000 unit Topical As Needed For DX- EXCORIATION 100,000 unit 12/12 Inactiv e 2023 83643 89231 5 Topica l False Vicks Vaporub 4.7 %-1.2 %-2.6 % topical ointment 4.7-1.2-2.6 Topical 3 times a day As Needed For DX- CONGESTION 4.7-1.2 -2.6 12/12 Inactiv e 2023 28246 31660 1 3 times a day Topica l False Ketoconazol e 2 % shampoo [generic] APPLY SHAMPOO TOPICALLY TO SCALP DURING HAIR WASHINGDX: ELVIA DERM OF SCALP For DX- ELVIA DERM OF SCALP 12/12 Inactiv e 2023 46576 98701 4 Topica l False THERA SILICONE SKIN GUARD Topical Twice daily 1 APPLICATION TOPICALLY IN THE MORNING AND AT BEDTIME TO SCROTUM For DX- PREVENTION 202300 Active 2023 Twice daily Topica l False Selenium sulfide 2.5 % lotion [generic] 2.5 % Topical EVERY MONDAY, MONDAY AND MONDAY AFTER SHOWER For DANDRUFF 2.5 % 202300 Active 2023 56253 80397 4 3 times a week Topica l False Nystatin (bulk) 100 million unit powder [generic] 100 million Topical Twice daily as needed For EXOCORATION 100 million 12/20 Inactiv e 2023 80543 07623 1 Twice daily as needed Topica l False Ketoconazol e 2 % shampoo [generic] Once daily APPLY SHAMPOO TOPICALLY TO SCALP DURING HAIR WASHING ON SHOWER DAYS- , , MON For ELVIA DERM OF SCAP 2 % 2023 0000 / Active 2023 74117 77189 4 Once daily Topica l False Nystatin 100,000 unit/gram topical cream [generic] 1 mague Topical Twice daily as needed For EXOCORATION 1 mague 06/05 Inactiv e 2023 26591 31664 5 Twice daily as needed Topica l False Nystatin 100,000 unit/gram topical powder [generic] 100,000 unit Topical Twice daily to scrotum with AM and PM care For Scrotal excoriation 100,000 unit 06/05 Inactiv e 2023 73682 91543 5 Twice daily Topica l False Problems [...] Temperature SpO2 Blood Sugar Pulse Respirations 205 35600 4 85.00 mm[Hg] - Sitting 142.00 mm[Hg] - Sitting 206 96970 9 76.00 mm[Hg] - Sitting 132.00 mm[Hg] - Sitting 208 82083 9 82.00 mm[Hg] - Sitting 128.00 mm[Hg] - Sitting 209 79870 2 78.00 mm[Hg] - Sitting 130.00 mm[Hg] - Sitting 210 09888 6 80.00 mm[Hg] - Sitting 132.00 mm[Hg] - Sitting 211 60954 5 78.00 mm[Hg] - Sitting 125.00 mm[Hg] - Sitting 37430 216 95700 1 254[place]10 [place] [address] 216 67250 2 79.00 mm[Hg] - Sitting 157.00 mm[Hg] - Sitting 73 NI 254.10 NI 36.30 Tympanic 95.00 % 72.00/ min 16.00/min 86121 216 54812 4 98.80 Tympanic 04280 216 12727 2 78.00 mm[Hg] - Sitting 164.00 mm[Hg] - Sitting 20997 217 65068 3 98.20 Tympanic 09142 217 78860 5 73.00 mm[Hg] - Sitting 159.00 mm[Hg] - Sitting 69382 217 81594 9 98.40 Forehead Scan 08606 218 67453 3 97.90 Tympanic 53848 218 51779 5 77.00 mm[Hg] - Sitting 137.00 mm[Hg] - Sitting 40746 219 49999 0 97.70 Tympanic 44097 219 58036 6 97.60 Tympanic 97335 219 16865 4 76.00 mm[Hg] - Sitting 139.00 mm[Hg] - Sitting 81142 219 77272 4 97.80 Forehead Scan 11814 220 12920 9 97.90 Tympanic 66468 220 84152 9 76.00 mm[Hg] - Sitting 138.00 mm[Hg] - Sitting 53841 220 05187 6 98.10 Tympanic 61513 221 43498 5 67.00 mm[Hg] - Sitting 142.00 mm[Hg] - Sitting 68531 221 77605 8 98.20 Tympanic 54445 221 35100 0 98.30 Tympanic 53996 222 59598 7 98.20 Tympanic 97406 222 18747 8 97.90 Tympanic 24709 223 31359 3 98.20 Tympanic 55940 223 60550 3 98.00 Tympanic 89270 224 04889 0 59.00 mm[Hg] - Sitting 111.00 mm[Hg] - Sitting 98.40 Forehead Scan 95.00 % 56.00/ min 18.00/min 76927 224 20076 9 98.20 Forehead Scan 93308 224 95845 3 97.90 Tympanic 68168 225 92589 4 98.20 Tympanic 77853 225 37000 8 97.50 Forehead Scan 86802 228 25199 0 55.00 mm[Hg] - Sitting 118.00 mm[Hg] - Sitting 98.40 Tympanic 69.00/ min 86361 229 37504 8 78.00 mm[Hg] - Sitting 152.00 mm[Hg] - Sitting 93549 230 08156 0 62.00 mm[Hg] - Sitting 122.00 mm[Hg] - Sitting 31662 231 24585 7 72.00 mm[Hg] - Lying Down 140.00 mm[Hg] - Lying Down 09761 101 30155 3 97.70 Forehead Scan 57893 101 91006 1 254.10 NI 69.00/ min 66595 101 40886 9 72.00 mm[Hg] - Sitting 142.00 mm[Hg] - Sitting 97.70 Tympanic 18.00/min 45348 101 00692 3 72.00 mm[Hg] - Lying Down 142.00 mm[Hg] - Lying Down 20996 102 94796 8 68.00 mm[Hg] - Lying Down 152.00 mm[Hg] - Lying Down 35701 103 56162 5 74.00 mm[Hg] - Sitting 158.00 mm[Hg] - Sitting 66901 104 21376 9 78.00 mm[Hg] - Sitting 144.00 mm[Hg] [...]
--- OUTSIDE RECORDS SUMMARY | 2024-07-26 11:22 | External Medical Summary | Continuity Of Care Document ---
Author Name Unknown Address [address] [place] [address] Organization [facility] () Care Team Providers Care Oyster Preparer Name Role Phone DO Pritchett Amy Primary Care Provider [phone] Allergies Allergy Reaction Start Date End Date Status AMINOGLYCOSIDES Active CIPRO Active GENTAMICIN Active NSAIDS (NON-STEROIDAL ANTI-INFLAMMATORY DRUG) 0 Active IBUPROFEN Active QUINOLONES Active VALIUM Active Medications Medication Instructions Dosage Start Date End Date Status Order Date Drug Code Frequency Route of Admin Diagnosis Code Substitutions Allowed Spikevax 9829-2190(1 2y up)(PF) 50 mcg/0.5 mL intramuscul ar suspension [COVID [id number](12 up)(andu)(P F)] 0.5mL Intramuscular 1 time Monitory 15 Minutes post injection for adverse effects; record site/temp For COVID 19 PREVENTION 0.5mL 01/02 Inactiv e 2023 37714 18909 4 1 time Intram uscula r False [facility] - Nurse initials indicate verificatio n that [id number] vaccine was administere d by [facility] Representat jon 1 Intramuscular 1 time ( Indicate vaccine type) For vaccine 1 05/03 Inactiv e 2023 1 time Intram uscula r False Lisinopril 40 mg tablet [generic] TAKE ONE (1) TABLET BY MOUTH IN THE MORNING. For DX- HTN 1 2023 Active 2023 90834 50945 1 Once daily By Mouth False Tizanidine 2 mg tablet [generic] TAKE ONE (1) TABLET BY MOUTH ONCE DAILY For MUSCLE SPASM 1 2023 Active 2023 38158 16405 0 Once daily By Mouth M62.838 False Tamsulosin 0.4 mg capsule [generic] TAKE (1) CAPSULE BY MOUTH AT BEDTIME For SPASMS 1 2023 Active 2023 81343 30118 0 Once daily By Mouth False Aspirin 81 mg tablet Once daily 1 TABLET BY MOUTH IN THE MORNING For DX- CAD DO NOT CRUSH, CHEW OR BREAK 81 mg 06/12 Inactiv e 2023 Once daily By Mouth False Baclofen 20 mg tablet [generic] 20 mg By Mouth 4 times a day For DX- MUSCLE SPASMS 20 mg 12/12 Inactiv e 2023 94453 10888 1 4 times a day By Mouth False Calcium citrate 250 mg tablet Once daily 4 TABLET BY MOUTH For DX- SUPPLEMENT 250 mg calci 12/12 Inactiv e 2023 Once daily By Mouth False Co Q-10 100 mg capsule 100 mg By Mouth Once daily For DX- SUPPLEMENT 100 mg 06/20 Inactiv e 2023 08660 51091 5 Once daily By Mouth False Furosemide 20 mg tablet [generic] 20 mg By Mouth Once daily For DX-CHF 20 mg 12/12 Inactiv e 2023 07369 61849 0 Once daily By Mouth False Gabapentin 300 mg capsule [generic] 300 mg By Mouth 3 times a day For DX- NEUROPATHY 300 mg 12/12 Inactiv e 2023 85492 25518 4 3 times a day By Mouth False Loratadine 10 mg tablet [generic] 10 mg By Mouth Once daily For DX- ALLERGIES 10 mg 2023 Active 2023 62983 79673 1 Once daily By Mouth False Miralax 17 gram/dose oral powder 17 gram/dose By Mouth IN THE MORNING Mix 1 TABLESPOON IN 8 OZ OF FLUID HOLD FOR LOOSE STOOLS For DX- CONSTIPATION 17 gram/do se 12/12 Inactiv e 2023 63922 25725 0 Once daily By Mouth False Paroxetine 30 mg tablet [generic] 30 mg By Mouth Once daily For DX- DEPRESSION 30 mg 2023 00/00 /0000 Active 2023 49564 27314 3 Once daily By Mouth False Potassium citrate ER 15 mEq (1,620 mg) tablet,exte nded release [generic] 15 mEq By Mouth 3 times a day For DX- SUPPLEMENT/DI URETIC USE/ HYPOCITRAUIRA DO NOT CRUSH 15 mEq 12/12 Inactiv e 2023 85390 35414 1 3 times a day By Mouth [...] For DX- DANDRUFF 12/12 Inactiv e 2023 69688 51765 4 3 times a week Topica l False Acetaminoph en 325 mg tablet [generic] TAKE 2 TABS (650MG) BY MOUTH EVERY 4 HOURS NEEDED FOR TEMP >100 NOT TO EXCEED 3GM/24HRS TAKE 2 TABS (650MG) BY MOUTH EVERY 4 HOURS NEEDED FOR TEMP >100 NOT TO EXCEED 3GM/24HRS For DX-FEVER 2 12/12 Inactiv e 2023 00063 50611 0 By Mouth False MILK OF MAGNESIA ADMINISTER 30 ML BY MOUTH ONCE DAILY NEEDED FOR CONSTIPATION X3 DAYS WITH NO BM. For DX- CONSTIPATION 30ML 12/12 Inactiv e 2023 67987 89698 9 By Mouth False Enema Disposable 19 gram-7 gram/118 mL ADMINISTER ONE ENEMA RECTALLY ONCE DAILY NEEDED FOR CONSTIPATION ON DAY 6 OF NO BM For DX- CONSTIPATION 12/12 Inactiv e 2023 49120 02856 1 Rectal False TUMS EXTRA STR 750MG TAKE (1) TABLET BY MOUTH THREE TIMES DAILY NEEDED FOR INDIGESTION For DX- INDIGESTION 1 12/12 Inactiv e 2023 48307 72453 8 By Mouth False Vitamin D3 25 [...] CONSTIPATION 10 mg 12/12 Inactiv e 2023 33193 15462 1 Rectal False Melatonin 3 mg tablet [generic] 3 mg By Mouth As Needed For DX-INSOMMIA 3 mg 12/12 Inactiv e 2023 97687 38710 8 By Mouth False Hydrocortis one 1 % topical cream [generic] 1 % Topical As Needed For DX- PAIN 1 % 12/12 Inactiv e 2023 49300 45406 1 Topica l False HYDROCORTIS ONE/PARMOXI NE [...] 5-10 50 mg 12/20 Inactiv e 2023 97943 91406 0 Every 4 hours as needed By Mouth False Tylenol 325 mg tablet 325 mg By Mouth Every 4 hours as needed For DX- PAIN PRN FOR MILD PAIN, DO NOT EXCEED 3000MG APAP/24 HOURS 325 mg 12/20 Inactiv e 2023 19986 56009 0 Every 4 hours as needed By Mouth False Baclofen 20 mg tablet [generic] 20 mg By Mouth 4 times a day For MUSCLE SPASMS 20 mg 12/20 Inactiv e 2023 52069 64248 1 4 times a day By Mouth False Calcium citrate 250 mg tablet [generic] Once daily TAKE 4 TABLETS (1000MG) BY MOUTH For SUPPLEMENT 1000 MG 06/26 Inactiv e 2023 02472 89250 6 Once daily By Mouth False Dulcolax (bisacodyl) 10 mg rectal suppository 10 mg Rectal Once daily For CONSTIPATION *MAY HOLD FOR LOOSE STOOLS* 10 mg 2023 Active 2023 66408 62469 1 Once daily Rectal False Gabapentin 300 mg capsule [generic] 300 mg By Mouth 3 times a day For NEUROPATHY 300 mg 2023 Active 2023 89144 63354 4 3 times a day By Mouth False Potassium citrate ER 15 mEq (1,620 mg) tablet,exte nded release [generic] 15 mEq By Mouth 3 times a day For SUPPLEMENT/DI URETIC USE/HYPOCITRA URIA 15 mEq 06/11 Inactiv e 2023 19636 36511 1 3 times a day By Mouth False Problems Code Description Start [...] Temperature SpO2 Blood Sugar Pulse Respirations 205 19115 4 85.00 mm[Hg] - Sitting 142.00 mm[Hg] - Sitting 206 91212 9 76.00 mm[Hg] - Sitting 132.00 mm[Hg] - Sitting 208 82178 9 82.00 mm[Hg] - Sitting 128.00 mm[Hg] - Sitting 209 89732 2 78.00 mm[Hg] - Sitting 130.00 mm[Hg] - Sitting 78668 210 25406 6 80.00 mm[Hg] - Sitting 132.00 mm[Hg] - Sitting 96647 211 41714 5 78.00 mm[Hg] - Sitting 125.00 mm[Hg] - Sitting 13596 216 25388 1 254.10 [place] [address] 216 19204 2 79.00 mm[Hg] - Sitting 157.00 mm[Hg] - Sitting 73 NI 254.10 NI 36.30 Tympanic 95.00 % 72.00/ min 16.00/min 34566 216 46826 4 98.80 Tympanic 06249 216 25151 2 78.00 mm[Hg] - Sitting 164.00 mm[Hg] - Sitting 39462 217 38066 3 98.20 Tympanic 65528 217 40349 5 73.00 mm[Hg] - Sitting 159.00 mm[Hg] - Sitting 35416 217 02154 9 98.40 Forehead Scan 218 83094 3 97.90 Tympanic 51244 218 07532 5 77.00 mm[Hg] - Sitting 137.00 mm[Hg] - Sitting 70474 219 60614 0 97.70 Tympanic 36028 219 41172 6 97.60 Tympanic 06953 219 17325 4 76.00 mm[Hg] - Sitting 139.00 mm[Hg] - Sitting 40044 219 37864 4 97.80 Forehead Scan 49621 220 33658 9 97.90 Tympanic 76924 220 76457 9 76.00 mm[Hg] - Sitting 138.00 mm[Hg] - Sitting 19418 220 20426 6 98.10 Tympanic 20694 221 76368 5 67.00 mm[Hg] - Sitting 142.00 mm[Hg] - Sitting 84869 221 55670 8 98.20 Tympanic 19572 221 86452 0 98.30 Tympanic 26487 222 50643 7 98.20 Tympanic 79967 222 79848 8 97.90 Tympanic 43787 223 74204 3 98.20 Tympanic 63750 223 84015 3 98.00 Tympanic 53542 224 33000 0 59.00 mm[Hg] - Sitting 111.00 mm[Hg] - Sitting 98.40 Forehead Scan 95.00 % 56.00/ min 18.00/min 72043 224 56526 9 98.20 Forehead Scan 25944 224 05920 3 97.90 Tympanic 42436 225 48509 4 98.20 Tympanic 28819 225 05283 8 97.50 Forehead Scan 72007 228 05697 0 55.00 mm[Hg] - Sitting 118.00 mm[Hg] - Sitting 98.40 Tympanic 69.00/ min 36672 229 13577 8 78.00 mm[Hg] - Sitting 152.00 mm[Hg] - Sitting 64975 230 67830 0 62.00 mm[Hg] - Sitting 122.00 mm[Hg] - Sitting 97058 231 06337 7 72.00 mm[Hg] - Lying Down 140.00 mm[Hg] - Lying Down 88563 101 81677 3 97.70 Forehead Scan 33196 101 84813 1 254.10 NI 69.00/ min 08200 101 08665 9 72.00 mm[Hg] - Sitting 142.00 mm[Hg] - Sitting 97.70 Tympanic 18.00/min 85681 101 62838 3 72.00 mm[Hg] - Lying Down 142.00 mm[Hg] - Lying Down 35669 102 95774 8 68.00 mm[Hg] - Lying Down 152.00 mm[Hg] - Lying Down 47470 103 62159 5 74.00 mm[Hg] - Sitting 158.00 mm[Hg] - Sitting 43031 104 21375 9 78.00 mm[Hg] - Sitting 144.00 mm[Hg] [...]
--- OUTSIDE RECORDS SUMMARY | 2024-07-26 11:23 | External Medical Summary | Continuity Of Care Document ---
Author Name Unknown Address [address] [place] [address] Organization [facility] () Care Team Providers Care Supervisor Dock Name Role Phone DO Pritchett Amy Primary Care Provider [phone] Allergies Allergy Reaction Start Date End Date Status AMINOGLYCOSIDES Active CIPRO Active GENTAMICIN Active NSAIDS (NON-STEROIDAL ANTI-INFLAMMATORY DRUG) 0 Active IBUPROFEN Active QUINOLONES Active VALIUM Active Medications Medication Instructions Dosage Start Date End Date Status Order Date Drug Code Frequency Route of Admin Diagnosis Code Substitutions Allowed Spikevax [id number](1 2y up)(PF) 50 mcg/0.5 mL intramuscul ar suspension [COVID [id number](12 up)(andu)(P F)] 0.5mL Intramuscular 1 time Monitory 15 Minutes post injection for adverse effects; record site/temp For COVID 19 PREVENTION 0.5mL 01/02 Inactiv e 2023 59288 06419 4 1 time Intram uscula r False [facility] - Nurse initials indicate verificatio n that [id number] vaccine was administere d by [facility] jon 1 Intramuscular 1 time ( Indicate vaccine type) For vaccine 1 05/03 Inactiv e 2023 1 time Intram uscula r False Lisinopril 40 mg tablet [generic] TAKE ONE (1) TABLET BY MOUTH IN THE MORNING. For DX- HTN 1 2023 Active 2023 77861 99644 1 Once daily By Mouth False Tizanidine 2 mg tablet [generic] TAKE ONE (1) TABLET BY MOUTH ONCE DAILY For MUSCLE SPASM 1 2023 Active 2023 07514 63944 0 Once daily By Mouth M62.838 False Tamsulosin 0.4 mg capsule [generic] TAKE (1) CAPSULE BY MOUTH AT BEDTIME For SPASMS 1 2023 Active 2023 91492 50199 0 Once daily By Mouth False Aspirin 81 mg tablet Once daily 1 TABLET BY MOUTH IN THE MORNING For DX- CAD DO NOT CRUSH, CHEW OR BREAK 81 mg 06/12 Inactiv e 2023 Once daily By Mouth False Baclofen 20 mg tablet [generic] 20 mg By Mouth 4 times a day For DX- MUSCLE SPASMS 20 mg 12/12 Inactiv e 2023 66099 10468 1 4 times a day By Mouth False Calcium citrate 250 mg tablet Once daily 4 TABLET BY MOUTH For DX- SUPPLEMENT 250 mg calci 12/12 Inactiv e 2023 Once daily By Mouth False Co Q-10 100 mg capsule 100 mg By Mouth Once daily For DX- SUPPLEMENT 100 mg 06/20 Inactiv e 2023 25625 72597 5 Once daily By Mouth False Furosemide 20 mg tablet [generic] 20 mg By Mouth Once daily For DX-CHF 20 mg 12/12 Inactiv e 2023 83987 14242 0 Once daily By Mouth False Gabapentin 300 mg capsule [generic] 300 mg By Mouth 3 times a day For DX- NEUROPATHY 300 mg 12/12 Inactiv e 2023 25110 63332 4 3 times a day By Mouth False Loratadine 10 mg tablet [generic] 10 mg By Mouth Once daily For DX- ALLERGIES 10 mg 2023 Active 2023 05970 62485 1 Once daily By Mouth False Miralax 17 gram/dose oral powder 17 gram/dose By Mouth IN THE MORNING Mix 1 TABLESPOON IN 8 OZ OF FLUID HOLD FOR LOOSE STOOLS For DX- CONSTIPATION 17 gram/do se 12/12 Inactiv e 2023 88306 17142 0 Once daily By Mouth False Paroxetine 30 mg tablet [generic] 30 mg By Mouth Once daily For DX- DEPRESSION 30 mg 2023 00/00 /0000 Active 2023 94319 56808 3 Once daily By Mouth False Potassium citrate ER 15 mEq (1,620 mg) tablet,exte nded release [generic] 15 mEq By Mouth 3 times a day For DX- SUPPLEMENT/DI URETIC USE/ HYPOCITRAUIRA DO NOT CRUSH 15 mEq 12/12 Inactiv e 2023 30560 98084 1 3 times a day By Mouth [...] For DX- DANDRUFF 12/12 Inactiv e 2023 15804 97532 4 3 times a week Topica l False Acetaminoph en 325 mg tablet [generic] TAKE 2 TABS (650MG) BY MOUTH EVERY 4 HOURS NEEDED FOR TEMP >100 NOT TO EXCEED 3GM/24HRS TAKE 2 TABS (650MG) BY MOUTH EVERY 4 HOURS NEEDED FOR TEMP >100 NOT TO EXCEED 3GM/24HRS For DX-FEVER 2 12/12 Inactiv e 2023 71393 63774 0 By Mouth False MILK OF MAGNESIA ADMINISTER 30 ML BY MOUTH ONCE DAILY NEEDED FOR CONSTIPATION X3 DAYS WITH NO BM. For DX- CONSTIPATION 30ML 12/12 Inactiv e 2023 57725 31152 9 By Mouth False Enema Disposable 19 gram-7 gram/118 mL ADMINISTER ONE ENEMA RECTALLY ONCE DAILY NEEDED FOR CONSTIPATION ON DAY 6 OF NO BM For DX- CONSTIPATION 12/12 Inactiv e 2023 97572 13952 1 Rectal False TUMS EXTRA STR 750MG TAKE (1) TABLET BY MOUTH THREE TIMES DAILY NEEDED FOR INDIGESTION For DX- INDIGESTION 1 12/12 Inactiv e 2023 28000 54149 8 By Mouth False Vitamin D3 25 [...] CONSTIPATION 10 mg 12/12 Inactiv e 2023 90458 67237 1 Rectal False Melatonin 3 mg tablet [generic] 3 mg By Mouth As Needed For DX-INSOMMIA 3 mg 12/12 Inactiv e 2023 62406 50612 8 By Mouth False Hydrocortis one 1 % topical cream [generic] 1 % Topical As Needed For DX- PAIN 1 % 12/12 Inactiv e 2023 31541 88136 1 Topica l False HYDROCORTIS ONE/PARMOXI NE [...] 5-10 50 mg 12/20 Inactiv e 2023 92145 47481 0 Every 4 hours as needed By Mouth False Tylenol 325 mg tablet 325 mg By Mouth Every 4 hours as needed For DX- PAIN PRN FOR MILD PAIN, DO NOT EXCEED 3000MG APAP/24 HOURS 325 mg 12/20 Inactiv e 2023 66592 19796 0 Every 4 hours as needed By Mouth False Baclofen 20 mg tablet [generic] 20 mg By Mouth 4 times a day For MUSCLE SPASMS 20 mg 12/20 Inactiv e 2023 37716 96578 1 4 times a day By Mouth False Calcium citrate 250 mg tablet [generic] Once daily TAKE 4 TABLETS (1000MG) BY MOUTH For SUPPLEMENT 1000 MG 06/26 Inactiv e 2023 88921 14001 6 Once daily By Mouth False Dulcolax (bisacodyl) 10 mg rectal suppository 10 mg Rectal Once daily For CONSTIPATION *MAY HOLD FOR LOOSE STOOLS* 10 mg 2023 Active 2023 94294 93308 1 Once daily Rectal False Gabapentin 300 mg capsule [generic] 300 mg By Mouth 3 times a day For NEUROPATHY 300 mg 2023 Active 2023 56491 27463 4 3 times a day By Mouth False Potassium citrate ER 15 mEq (1,620 mg) tablet,exte nded release [generic] 15 mEq By Mouth 3 times a day For SUPPLEMENT/DI URETIC USE/HYPOCITRA URIA 15 mEq 06/11 Inactiv e 2023 04408 57887 1 3 times a day By Mouth False Potassium chloride ER 20 mEq tablet,exte nded release [generic] 20 mEq By Mouth 3 times a day *DO NOT CRUSH, CHEW OR BREAK* For SUPPLEMENT 20 mEq 12/18 Inactiv e 2023 76084 81417 1 3 times a day By Mouth False Tizanidine 4 mg tablet [generic] 4 mg By Mouth Once daily For MUSCLE SPASMS 4 mg 2023 Active 2023 18320 90359 0 Once daily By Mouth False Tylenol 325 mg tablet 2 tabs By Mouth Every 4 hours as needed For Fever >100 DO NOT EXCEED 3000 MG APAP/24 Hours 2 tabs 12/20 Inactiv e 2023 27904 16472 0 Every 4 hours as needed By Mouth False Dulcolax (bisacodyl) 10 mg rectal suppository Daily as needed For Constipation 1 sup 12/20 Inactiv e 2023 34127 75978 1 Daily as needed Rectal False Fleet Enema 19 gram-7 gram/118 mL 1 Rectal Daily as neededFor Constipation 1 12/20 Inactiv e 2023 30155 37470 6 Daily as needed Rectal False Milk of Magnesia 400 mg/5 mL oral suspension [Magnesium hydroxide] PRN 30ml By Mouth Daily as needed for constipation one time daily if no BM, on day 4 of no BM (PRN refer to instructions) For Constipation For Constipatioin 30ml 12/20 Inactiv e 2023 15765 14565 6 1 time By Mouth False Melatonin 3 mg tablet [generic] 3 mg By Mouth Once daily As Needed For INSOMNIA 3 mg 12/20 Inactiv e 2023 48035 43434 8 Once daily By Mouth False Hydrocortis one 1 % topical cream [generic] 1 % Rectal Four times daily as needed For hemorroid pain 1 % 12/20 Inactiv e 2023 67968 01206 1 Four times daily as needed Rectal False X-STGH ANTACID 750MG CHEW TAKE (1) TABLET BY MOUTH THREE TIMES DAILY NEEDED FOR INDIGESTION 12/20 Inactiv e 2023 93208 37759 4 Three times daily as needed Saline Mist 0.65 % nasal spray aerosol 0.65 % Nares Four times daily as needed For DRYNESS 0.65 % 12/20 Inactiv e 2023 22588 57257 8 Four times daily as needed Nares False Vicks Vaporub 4.7 %-1.2 %-2.6 % topical ointment Apply topically to chest Three times daily as needed For CONGESTION 4.7-1.2 -2.6 12/20 Inactiv e 2023 55925 82216 1 Three times daily as needed Topica l False VITAMIN D3 2000U CAP TAKE ONE (1) CAPSULE BY MOUTH DAILY* DO NOT CRUSH, CHEW OR BREAK* For Supplement 1 capsule 12/19 Inactiv e 2023 10378 77214 0 Once daily By Mouth False Potassium chloride ER 20 mEq tablet,exte nded release(par t/cryst) [generic] TAKE (1) TABLET BY MOUTH THREE TIMES DAILY (MORNING, AFTERNOON, EVENING)*DO NOT CRUSH, CHEW, OR BREAK* For SUPPLEMENT 20 MEQ 06/11 Inactiv e 2023 17038 36396 5 3 times a day By Mouth False Aspirin 81 mg tablet,camron yed release [generic] TAKE ONE (1) TABLET BY MOUTH ONCE DAILY*DO NOT CRUSH, CHEW OR BREAK* For CAD 81 MG 12/22 Inactiv e 2023 97328 30013 0 Once daily By Mouth False Furosemide 20 mg tablet [generic] TAKE 1 AND 1/2 TABLETS (30MG) BY MOUTH ONCE DAILY For CHF 30mg 2023 Active 2023 20152 27679 1 Once daily By Mouth False Polyethylen e glycol 3350 17 gram/dose oral powder [generic] MIX 17 GRAMS (1 CAPFUL) IN 60Z OF LIQUID AND DRINK BY MOUTH ONCE DAILY *HOLD FOR LOOSE STOOLS* For constipation 17 g 2023 Active 2023 88703 56750 3 Once daily By Mouth False Vitamin D3 50 mcg (2,000 unit) capsule Once daily TAKE ONE (1) CAPSULE BY MOUTH DAILY* DO NOT CRUSH, CHEW OR BREAK* For Supplement 1 capsule 02/07 Inactiv e 2023 94741 59009 2 Once daily By Mouth False Fleet Enema 19 gram-7 gram/118 mL 1 Rectal Daily as neededFor Constipation 1 2023 0000 Active 2023 17944 49582 6 Daily as needed Rectal False Tums E-X 300 mg (as calcium carbonate 750 mg) chewable tablet 1 tab By Mouth TAKE (1) TABLET BY MOUTH THREE TIMES DAILY NEEDED FOR INDIGESTION 1 tab 202300 /0000 Active 2023 39633 27873 1 Three times daily as needed By Mouth False Tylenol 325 mg tablet 2 tabs By Mouth Every 4 hours as needed For Fever >100 DO NOT EXCEED 3000 MG APAP/24 Hours 2 tabs 202300 /0000 Active 2023 84334 68342 0 Every 4 hours as needed By Mouth False Vicks Vaporub 4.7 %-1.2 %-2.6 % topical ointment Apply topically to chest Three times daily as needed For CONGESTION topical 202300 Active 2023 15637 21226 1 Three times daily as needed Topica l False Tylenol 325 mg tablet 2 tabs By Mouth Every 4 hours as needed For DX- PAIN PRN FOR MILD PAIN, DO NOT EXCEED 3000MG APAP/24 HOURS 2 tabs 202300 Active 2023 74244 98234 0 Every 4 hours as needed By Mouth False Tramadol 50 mg tablet [generic] 1 tab By Mouth Every 4 hours as needed For DX- PAIN 5-10 1 tab 03/10 Inactiv e 2023 03186 22970 0 Every 4 hours as needed By Mouth False Saline Mist 0.65 % nasal spray aerosol 2 sprays Nares Four times daily as needed For DRYNESS 2 sprays 202300 / Active 2023 25091 66562 8 Four times daily as needed Nares False Dulcolax (bisacodyl) 10 mg rectal suppository Daily as needed For Constipation 1 sup 202300 / Active 2023 24296 48145 1 Daily as needed Rectal False Hydrocortis one-pramoxi ne 1 %-1 % rectal cream [generic] 1 mague Rectal Four times daily as needed For hemorroid pain 1 mague 202300 /0000 Active 2023 77935 16553 4 Four times daily as needed Rectal False Melatonin 3 mg tablet [generic] 1 tab By Mouth At bedtime as needed For INSOMNIA 1 tab 12/24 Inactiv e 2023 05186 17027 8 At bedtime as needed By Mouth False Milk of Magnesia 400 mg/5 mL oral suspension 30ml By Mouth Daily as needed Daily as needed for constipation one time daily if no BM, on day 4 of no BM (PRN refer to instructions) For Constipation For Constipatioin 30ml 2023 Active 2023 30579 35104 2 Daily as needed By Mouth False Baclofen 20 mg tablet [generic] 20 mg By Mouth 4 times a day For MUSCLE SPASMS 20 mg 2023 Active 2023 86035 85031 1 4 times a day By Mouth False Melatonin 3 mg tablet [generic] 1 tab By Mouth At bedtime as needed For INSOMNIA 1 tab 2023 Active 2023 00373 26575 8 At bedtime as needed By Mouth False Bactrim DS 800 mg-160 mg tablet 1 tab By Mouth Twice daily For URINARY TRACT INFECTION, SITE NOT SPECIFIED 1 tab 01/06 Inactiv e 2023 28092 72522 1 Twice daily By Mouth N39.0 False Cefdinir 300 mg capsule [generic] 300 mg By Mouth Twice daily For UTI 300 mg 01/07 Inactiv e 2023 28646 17359 0 Twice daily By Mouth False Cefdinir 300 mg capsule [generic] 300 mg By Mouth Twice daily For UTI 300 mg 01/17 Inactiv e 2023 54218 50849 0 Twice daily By Mouth False Zyrtec 10 mg tablet 10 mg By Mouth Once daily For sinus congestion 10 mg 01/22 Inactiv e 2023 90487 52723 0 Once daily By Mouth False Tobramycin 0.3 %-dexametha sone 0.1 % eye drops,suspe nsion [generic] 0.3-0.1 % Left Eye 4 times a day For eye infection 0.3-0.1 % 02/05 Inactiv e 2023 78835 35858 5 4 times a day Left Eye False Fluconazole 150 mg tablet [generic] 150 mg By Mouth 1 time For yeast infection 150 mg 02/15 Inactiv e 2023 07897 01028 2 1 time By Mouth False Tramadol 50 mg tablet [generic] 1 tab By Mouth Every 4 hours as needed For DX- PAIN 5-10 1 tab 2023 00/00 /0000 Active 2023 35843 86141 0 Every 4 hours as needed By Mouth False Tobramycin 0.3 %-dexametha sone 0.1 % eye drops,suspe nsion [generic] 1 drop Left Eye 4 times a day For Inflammation of left eye 1 drop 05/08 Inactiv e 2023 49652 88051 5 4 times a day Left Eye False Voltaren Arthritis Pain 1 % topical gel 2 gm Topical Twice daily to rigth shoulder for 2 weeks For pain 2 gm 05/08 Inactiv e 2023 94255 26656 1 Twice daily Topica l False Chlorthalid one 25 mg tablet [generic] 12.5mg By Mouth Once daily For HTN 12.5mg 05/06 Inactiv e 2023 67989 49913 0 Once daily By Mouth False Chlorthalid one 25 mg tablet [generic] 12.5mg By Mouth Once daily For HTN 12.5mg 05/07 Inactiv e 2023 16102 22383 0 Once daily By Mouth False Chlorthalid one 25 mg tablet [generic] 05/07 Inactiv e 2023 10470 05657 0 Chlorthalid one 25 mg tablet [generic] 12.5mg By Mouth Once daily For HTN 12.5mg 06/26 Inactiv e 2023 90179 86136 0 Once daily By Mouth False Norvasc 5 mg tablet 5mg By Mouth Once daily, hold medication if systolic is less than 90 For HYPERTENSIVE HEART DISEASE WITHOUT HEART FAILURE 5mg 06/03 Inactiv e 2023 87352 72165 1 Once daily By Mouth I11.9 False Norvasc 5 mg tablet 5mg By Mouth Once daily, hold medication if systolic is less than 90 For HYPERTENSIVE HEART DISEASE WITHOUT HEART FAILURE 5mg 06/03 Inactiv e 2023 25434 03321 1 Once daily By Mouth I11.9 False Norvasc 5 mg tablet 5mg By Mouth Once daily, hold medication if systolic is less than 90 For HYPERTENSIVE HEART DISEASE WITHOUT HEART FAILURE 5mg 06/26 Inactiv e 2023 93737 87427 1 Once daily By Mouth I11.9 False [...] 10 mg 2023 00/00 /0000 Active 2023 52411 93759 1 Once daily By Mouth False DISCONTINUE [...] CAD 81 mg 06/14 Inactiv e 2023 34443 25733 9 Once daily By Mouth False Aspirin 81 mg tablet,camron yed release [generic] 06/14 Inactiv e 2023 99231 48942 9 Aspirin 81 mg tablet,camron yed release [generic] 81 mg By Mouth Once daily Do not crush, chew, or break For CAD 81 mg 06/154 Inactiv e 2023 12566 92450 9 Once daily By Mouth False Cefpodoxime 200 mg tablet [generic] 200mg By Mouth Twice daily For UTI 200mg 07/04 Inactiv e 2023 36597 76861 0 Twice daily By Mouth False Calcium citrate 250 mg tablet [generic] 06/26 Inactiv e 2023 13737 17701 6 Calcium citrate 250 mg tablet [generic] Once daily TAKE 4 TABLETS (1000MG) BY MOUTH For SUPPLEMENT 500 MG 2023 Active 2023 41797 55741 6 Once daily By Mouth False Norvasc 5 mg tablet 7.5 mg By Mouth Once daily Hold medication if SBP <90 For HYPERTENSIVE HEART DISEASE WITHOUT HEART FAILURE 7.5 mg 06/30 Inactiv e 2023 81736 92389 1 Once daily By Mouth I11.9 False Norvasc 5 mg tablet 7.5 mg By Mouth Once daily Hold medication if SBP <90 For HYPERTENSIVE HEART DISEASE WITHOUT HEART FAILURE 7.5 mg 07/06 Inactiv e 2023 06456 71062 1 Once daily By Mouth I11.9 False Simethicone 125 mg capsule [generic] 2 capule By Mouth Twice daily as needed For bloating/gas pain 2 capule 2023 Active 2023 70018 74093 0 Twice daily as needed By Mouth False Cepacol Sore Throat (benzocaine -menthol) 15 mg-2.6 mg lozenges 2 lozenges By Mouth Every 6 hours as needed For sore throat 2 lozenge s 2023 Active 2023 53546 17348 6 Every 6 hours as needed By Mouth False Cefepime 1 gram solution for injection [generic] 1g Intramuscular Every 12 hours 1g intramuscular ly ever 12 hours For UTI 1g 07/06 Inactiv e 2023 69463 40768 4 Every 12 hours Intram uscula r False Cefepime 1 gram solution for injection [generic] 07/06 Inactiv e 2023 36329 34137 4 Cefepime 1 gram solution for injection [generic] 1g Intramuscular Every 12 hours 1g intramuscular ly ever 12 hours For UTI Reconstitute with 2.4 ML of NSS. 1g 07/08 Inactiv e 2023 19600 49447 4 Every 12 hours Intram uscula r False Norvasc 5 mg tablet 07/06 Inactiv e 2023 16245 90137 1 I11.9 Norvasc 5 mg tablet 7.5 mg By Mouth Once daily Hold medication if SBP <90 For HYPERTENSIVE HEART DISEASE WITHOUT HEART FAILURE 7.5 mg 2023 000000 Active 2023 54296 39064 1 Once daily By Mouth I11.9 False Cefepime 1 gram solution for injection [generic] 07/08 Inactiv e 2023 88291 96916 4 Cefepime 1 gram solution for injection [generic] 1g Intramuscular Every 12 hours 1g intramuscular ly ever 12 hours For UTI Reconstitute with 2.4 ML of NSS. 1g 07/08 Inactiv e 2023 44318 15632 4 Every 12 hours Intram uscula r False Cefepime 1 gram solution for injection [generic] 07/08 Inactiv e 2023 40855 28379 4 Cefepime 1 gram solution for injection [generic] 1g Intramuscular Every 12 hours 1g intramuscular ly ever 12 hours For UTI Reconstitute with 2.4 ML of NSS. 1g 07/11 Active 2023 88145 44402 4 Every 12 hours Intram uscula r False Nystatin 100,000 unit/gram topical cream [generic] 100,000 unit Topical As Needed For DX- EXCORIATION 100,000 unit 12/12 Inactiv e 2023 66261 33188 5 Topica l False Vicks Vaporub 4.7 %-1.2 %-2.6 % topical ointment 4.7-1.2-2.6 Topical 3 times a day As Needed For DX- CONGESTION 4.7-1.2 -2.6 12/12 Inactiv e 2023 89357 71743 1 3 times a day Topica l False Ketoconazol e 2 % shampoo [generic] APPLY SHAMPOO TOPICALLY TO SCALP DURING HAIR WASHINGDX: ELVIA DERM OF SCALP For DX- ELVIA DERM OF SCALP 12/12 Inactiv e 2023 08829 61929 4 Topica l False THERA SILICONE SKIN GUARD Topical Twice daily 1 APPLICATION TOPICALLY IN THE MORNING AND AT BEDTIME TO SCROTUM For DX- PREVENTION 202300 Active 2023 Twice daily Topica l False Selenium sulfide 2.5 % lotion [generic] 2.5 % Topical EVERY MONDAY, MONDAY AND MONDAY AFTER SHOWER For DANDRUFF 2.5 % 202300 Active 2023 84516 79439 4 3 times a week Topica l False Nystatin (bulk) 100 million unit powder [generic] 100 million Topical Twice daily as needed For EXOCORATION 100 million 12/20 Inactiv e 2023 30943 34486 1 Twice daily as needed Topica l False Ketoconazol e 2 % shampoo [generic] Once daily APPLY SHAMPOO TOPICALLY TO SCALP DURING HAIR WASHING ON SHOWER DAYS- , , MON For ELVIA DERM OF SCAP 2 % 202300 Active 2023 62518 36287 4 Once daily Topica l False Nystatin 100,000 unit/gram topical cream [generic] 1 mague Topical Twice daily as needed For EXOCORATION 1 mague 06/05 Inactiv e 2023 21653 78785 5 Twice daily as needed Topica l False Nystatin 100,000 unit/gram topical powder [generic] 100,000 unit Topical Twice daily to scrotum with AM and PM care For Scrotal excoriation 100,000 unit 06/05 Inactiv e 2023 35147 38087 5 Twice daily Topica l False Problems [...] weight Temperature SpO2 Blood Sugar Pulse Respirations 2 76.00 mm[Hg] - Sitting 136.00 mm[Hg] - Sitting 203 22900 2 259.80 NI 203 10983 5 93.00 mm[Hg] - Sitting 137.00 mm[Hg] - Sitting 204 98186 2 259.40 NI 204 97400 1 78.00 mm[Hg] - Sitting 144.00 mm[Hg] - Sitting 205 78514 4 85.00 mm[Hg] - Sitting 142.00 mm[Hg] - Sitting 206 66796 9 76.00 mm[Hg] - Sitting 132.00 mm[Hg] - Sitting 79727 208 56120 9 82.00 mm[Hg] - Sitting 128.00 mm[Hg] - Sitting 84675 209 14054 2 78.00 mm[Hg] - Sitting 130.00 mm[Hg] - Sitting 76855 210 07865 6 80.00 mm[Hg] - Sitting 132.00 mm[Hg] - Sitting 78414 211 41304 5 78.00 mm[Hg] - Sitting 125.00 mm[Hg] - Sitting 15357 216 37415 1 254.10 NI 03969 216 84506 2 79.00 mm[Hg] - Sitting 157.00 mm[Hg] - Sitting 73 NI 254.10 NI 36.30 Tympanic 95.00 % 72.00/ min 16.00/min 15414 216 95193 4 98.80 Tympanic 93140 216 38253 2 78.00 mm[Hg] - Sitting 164.00 mm[Hg] - Sitting 80562 217 38146 3 98.20 Tympanic 36661 217 30163 5 73.00 mm[Hg] - Sitting 159.00 mm[Hg] - Sitting 20769 217 70069 9 98.40 Forehead Scan 88386 218 96241 3 97.90 Tympanic 46486 218 55869 5 77.00 mm[Hg] - Sitting 137.00 mm[Hg] - Sitting 22401 219 37893 0 97.70 Tympanic 86768 219 45585 6 97.60 Tympanic 84801 219 09430 4 76.00 mm[Hg] - Sitting 139.00 mm[Hg] - Sitting 02584 219 50813 4 97.80 Forehead Scan 22263 220 94106 9 97.90 Tympanic 25983 220 03290 9 76.00 mm[Hg] - Sitting 138.00 mm[Hg] - Sitting 63437 220 01267 6 98.10 Tympanic 22666 221 42633 5 67.00 mm[Hg] - Sitting 142.00 mm[Hg] - Sitting 30669 221 18784 8 98.20 Tympanic 51820 221 20079 0 98.30 Tympanic 88259 222 70491 7 98.20 Tympanic 70716 222 10100 8 97.90 Tympanic 75488 223 61169 3 98.20 Tympanic 38985 223 59169 3 98.00 Tympanic 18468 224 79391 0 59.00 mm[Hg] - Sitting 111.00 mm[Hg] - Sitting 98.40 Forehead Scan 95.00 % 56.00/ min 18.00/min 85024 224 79822 9 98.20 Forehead Scan 61609 224 55472 3 97.90 Tympanic 28928 225 03091 4 98.20 Tympanic 56823 225 42007 8 97.50 Forehead Scan 93150 228 18734 0 55.00 mm[Hg] - Sitting 118.00 mm[Hg] - Sitting 98.40 Tympanic 69.00/ min 23559 229 51890 8 78.00 mm[Hg] - Sitting 152.00 mm[Hg] - Sitting 87970 230 66043 0 62.00 mm[Hg] - Sitting 122.00 mm[Hg] - Sitting 22161 231 33732 7 72.00 mm[Hg] - Lying Down 140.00 mm[Hg] - Lying Down Immunizations Vaccine Date [...]
--- OUTSIDE RECORDS SUMMARY | 2024-07-26 11:23 | External Medical Summary | Continuity Of Care Document ---
Author Name Unknown Address [address] [place] [address] Organization [facility] () Care Team Providers Care Weigher Operator Name Role Phone DO [place] Amy Primary Care Provider [phone] Allergies Allergy Reaction Start Date End Date Status AMINOGLYCOSIDES Active CIPRO Active GENTAMICIN Active NSAIDS (NON-STEROIDAL ANTI-INFLAMMATORY DRUG) 0 Active IBUPROFEN Active QUINOLONES Active VALIUM Active Medications Medication Instructions Dosage Start Date End Date Status Order Date Drug Code Frequency Route of Admin Diagnosis Code Substitutions Allowed Spikevax [id number](1 2y up)(PF) 50 mcg/0.5 mL intramuscul ar suspension [COVID [id number](12 up)(andu)(P F)] 0.5mL Intramuscular 1 time Monitory 15 Minutes post injection for adverse effects; record site/temp For COVID 19 PREVENTION 0.5mL 01/02 Inactiv e 2023 22223 42684 4 1 time Intram uscula r False [facility] - Nurse initials indicate verificatio n that [id number] vaccine was administere d by [facility] jon 1 Intramuscular 1 time ( Indicate vaccine type) For vaccine 1 05/03 Inactiv e 2023 1 time Intram uscula r False Lisinopril 40 mg tablet [generic] TAKE ONE (1) TABLET BY MOUTH IN THE MORNING. For DX- HTN 1 2023 Active 2023 56554 35352 1 Once daily By Mouth False Tizanidine 2 mg tablet [generic] TAKE ONE (1) TABLET BY MOUTH ONCE DAILY For MUSCLE SPASM 1 2023 Active 2023 71091 15038 0 Once daily By Mouth M62.838 False Tamsulosin 0.4 mg capsule [generic] TAKE (1) CAPSULE BY MOUTH AT BEDTIME For SPASMS 1 2023 Active 2023 33209 71410 0 Once daily By Mouth False Aspirin 81 mg tablet Once daily 1 TABLET BY MOUTH IN THE MORNING For DX- CAD DO NOT CRUSH, CHEW OR BREAK 81 mg 06/12 Inactiv e 2023 Once daily By Mouth False Baclofen 20 mg tablet [generic] 20 mg By Mouth 4 times a day For DX- MUSCLE SPASMS 20 mg 12/12 Inactiv e 2023 69199 90979 1 4 times a day By Mouth False Calcium citrate 250 mg tablet Once daily 4 TABLET BY MOUTH For DX- SUPPLEMENT 250 mg calci 12/12 Inactiv e 2023 Once daily By Mouth False Co Q-10 100 mg capsule 100 mg By Mouth Once daily For DX- SUPPLEMENT 100 mg 06/20 Inactiv e 2023 89328 96670 5 Once daily By Mouth False Furosemide 20 mg tablet [generic] 20 mg By Mouth Once daily For DX-CHF 20 mg 12/12 Inactiv e 2023 98173 15418 0 Once daily By Mouth False Gabapentin 300 mg capsule [generic] 300 mg By Mouth 3 times a day For DX- NEUROPATHY 300 mg 12/12 Inactiv e 2023 23435 14373 4 3 times a day By Mouth False Loratadine 10 mg tablet [generic] 10 mg By Mouth Once daily For DX- ALLERGIES 10 mg 2023 Active 2023 40202 75125 1 Once daily By Mouth False Miralax 17 gram/dose oral powder 17 gram/dose By Mouth IN THE MORNING Mix 1 TABLESPOON IN 8 OZ OF FLUID HOLD FOR LOOSE STOOLS For DX- CONSTIPATION 17 gram/do se 12/12 Inactiv e 2023 60715 16128 0 Once daily By Mouth False Paroxetine 30 mg tablet [generic] 30 mg By Mouth Once daily For DX- DEPRESSION 30 mg 2023 00/00 /0000 Active 2023 10192 48892 3 Once daily By Mouth False Potassium citrate ER 15 mEq (1,620 mg) tablet,exte nded release [generic] 15 mEq By Mouth 3 times a day For DX- SUPPLEMENT/DI URETIC USE/ HYPOCITRAUIRA DO NOT CRUSH 15 mEq 12/12 Inactiv e 2023 78465 22874 1 3 times a day By Mouth [...] For DX- DANDRUFF 12/12 Inactiv e 2023 26100 56324 4 3 times a week Topica l False Acetaminoph en 325 mg tablet [generic] TAKE 2 TABS (650MG) BY MOUTH EVERY 4 HOURS NEEDED FOR TEMP >100 NOT TO EXCEED 3GM/24HRS TAKE 2 TABS (650MG) BY MOUTH EVERY 4 HOURS NEEDED FOR TEMP >100 NOT TO EXCEED 3GM/24HRS For DX-FEVER 2 12/12 Inactiv e 2023 37856 19476 0 By Mouth False MILK OF MAGNESIA ADMINISTER 30 ML BY MOUTH ONCE DAILY NEEDED FOR CONSTIPATION X3 DAYS WITH NO BM. For DX- CONSTIPATION 30ML 12/12 Inactiv e 2023 84269 03919 9 By Mouth False Enema Disposable 19 gram-7 gram/118 mL ADMINISTER ONE ENEMA RECTALLY ONCE DAILY NEEDED FOR CONSTIPATION ON DAY 6 OF NO BM For DX- CONSTIPATION 12/12 Inactiv e 2023 88040 25505 1 Rectal False TUMS EXTRA STR 750MG TAKE (1) TABLET BY MOUTH THREE TIMES DAILY NEEDED FOR INDIGESTION For DX- INDIGESTION 1 12/12 Inactiv e 2023 77410 04411 8 By Mouth False Vitamin D3 25 [...] CONSTIPATION 10 mg 12/12 Inactiv e 2023 80525 31339 1 Rectal False Melatonin 3 mg tablet [generic] 3 mg By Mouth As Needed For DX-INSOMMIA 3 mg 12/12 Inactiv e 2023 67683 18129 8 By Mouth False Hydrocortis one 1 % topical cream [generic] 1 % Topical As Needed For DX- PAIN 1 % 12/12 Inactiv e 2023 65054 24041 1 Topica l False HYDROCORTIS ONE/PARMOXI NE [...] 5-10 50 mg 12/20 Inactiv e 2023 43617 70520 0 Every 4 hours as needed By Mouth False Tylenol 325 mg tablet 325 mg By Mouth Every 4 hours as needed For DX- PAIN PRN FOR MILD PAIN, DO NOT EXCEED 3000MG APAP/24 HOURS 325 mg 12/20 Inactiv e 2023 89830 69484 0 Every 4 hours as needed By Mouth False Baclofen 20 mg tablet [generic] 20 mg By Mouth 4 times a day For MUSCLE SPASMS 20 mg 12/20 Inactiv e 2023 58328 85211 1 4 times a day By Mouth False Calcium citrate 250 mg tablet [generic] Once daily TAKE 4 TABLETS (1000MG) BY MOUTH For SUPPLEMENT 1000 MG 06/26 Inactiv e 2023 45354 83074 6 Once daily By Mouth False Dulcolax (bisacodyl) 10 mg rectal suppository 10 mg Rectal Once daily For CONSTIPATION *MAY HOLD FOR LOOSE STOOLS* 10 mg 2023 Active 2023 93333 94700 1 Once daily Rectal False Gabapentin 300 mg capsule [generic] 300 mg By Mouth 3 times a day For NEUROPATHY 300 mg 2023 Active 2023 06837 67843 4 3 times a day By Mouth False Potassium citrate ER 15 mEq (1,620 mg) tablet,exte nded release [generic] 15 mEq By Mouth 3 times a day For SUPPLEMENT/DI URETIC USE/HYPOCITRA URIA 15 mEq 06/11 Inactiv e 2023 56509 19802 1 3 times a day By Mouth False Potassium chloride ER 20 mEq tablet,exte nded release [generic] 20 mEq By Mouth 3 times a day *DO NOT CRUSH, CHEW OR BREAK* For SUPPLEMENT 20 mEq 12/18 Inactiv e 2023 50811 34047 1 3 times a day By Mouth False Tizanidine 4 mg tablet [generic] 4 mg By Mouth Once daily For MUSCLE SPASMS 4 mg 2023 Active 2023 86573 66219 0 Once daily By Mouth False Tylenol 325 mg tablet 2 tabs By Mouth Every 4 hours as needed For Fever >100 DO NOT EXCEED 3000 MG APAP/24 Hours 2 tabs 12/20 Inactiv e 2023 75966 04727 0 Every 4 hours as needed By Mouth False Dulcolax (bisacodyl) 10 mg rectal suppository Daily as needed For Constipation 1 sup 12/20 Inactiv e 2023 76823 50417 1 Daily as needed Rectal False Fleet Enema 19 gram-7 gram/118 mL 1 Rectal Daily as neededFor Constipation 1 12/20 Inactiv e 2023 77305 84610 6 Daily as needed Rectal False Milk of Magnesia 400 mg/5 mL oral suspension [Magnesium hydroxide] PRN 30ml By Mouth Daily as needed for constipation one time daily if no BM, on day 4 of no BM (PRN refer to instructions) For Constipation For Constipatioin 30ml 12/20 Inactiv e 2023 34402 65420 6 1 time By Mouth False Melatonin 3 mg tablet [generic] 3 mg By Mouth Once daily As Needed For INSOMNIA 3 mg 12/20 Inactiv e 2023 36063 66062 8 Once daily By Mouth False Hydrocortis one 1 % topical cream [generic] 1 % Rectal Four times daily as needed For hemorroid pain 1 % 12/20 Inactiv e 2023 59003 94142 1 Four times daily as needed Rectal False X-STGH ANTACID 750MG CHEW TAKE (1) TABLET BY MOUTH THREE TIMES DAILY NEEDED FOR INDIGESTION 12/20 Inactiv e 2023 77726 47507 4 Three times daily as needed Saline Mist 0.65 % nasal spray aerosol 0.65 % Nares Four times daily as needed For DRYNESS 0.65 % 12/20 Inactiv e 2023 18035 08053 8 Four times daily as needed Nares False Vicks Vaporub 4.7 %-1.2 %-2.6 % topical ointment Apply topically to chest Three times daily as needed For CONGESTION 4.7-1.2 -2.6 12/20 Inactiv e 2023 96148 17800 1 Three times daily as needed Topica l False VITAMIN D3 2000U CAP TAKE ONE (1) CAPSULE BY MOUTH DAILY* DO NOT CRUSH, CHEW OR BREAK* For Supplement 1 capsule 12/19 Inactiv e 2023 10455 92667 0 Once daily By Mouth False Potassium chloride ER 20 mEq tablet,exte nded release(par t/cryst) [generic] TAKE (1) TABLET BY MOUTH THREE TIMES DAILY (MORNING, AFTERNOON, EVENING)*DO NOT CRUSH, CHEW, OR BREAK* For SUPPLEMENT 20 MEQ 06/11 Inactiv e 2023 78719 47905 5 3 times a day By Mouth False Aspirin 81 mg tablet,camron yed release [generic] TAKE ONE (1) TABLET BY MOUTH ONCE DAILY*DO NOT CRUSH, CHEW OR BREAK* For CAD 81 MG 12/22 Inactiv e 2023 27538 87739 0 Once daily By Mouth False Furosemide 20 mg tablet [generic] TAKE 1 AND 1/2 TABLETS (30MG) BY MOUTH ONCE DAILY For CHF 30mg 2023 Active 2023 32105 43261 1 Once daily By Mouth False Polyethylen e glycol 3350 17 gram/dose oral powder [generic] MIX 17 GRAMS (1 CAPFUL) IN 60Z OF LIQUID AND DRINK BY MOUTH ONCE DAILY *HOLD FOR LOOSE STOOLS* For constipation 17 g 2023 Active 2023 38285 96748 3 Once daily By Mouth False Vitamin D3 50 mcg (2,000 unit) capsule Once daily TAKE ONE (1) CAPSULE BY MOUTH DAILY* DO NOT CRUSH, CHEW OR BREAK* For Supplement 1 capsule 02/07 Inactiv e 2023 32953 79335 2 Once daily By Mouth False Fleet Enema 19 gram-7 gram/118 mL 1 Rectal Daily as neededFor Constipation 1 2023 0000 Active 2023 63680 13153 6 Daily as needed Rectal False Tums E-X 300 mg (as calcium carbonate 750 mg) chewable tablet 1 tab By Mouth TAKE (1) TABLET BY MOUTH THREE TIMES DAILY NEEDED FOR INDIGESTION 1 tab 202300 /0000 Active 2023 23637 78923 1 Three times daily as needed By Mouth False Tylenol 325 mg tablet 2 tabs By Mouth Every 4 hours as needed For Fever >100 DO NOT EXCEED 3000 MG APAP/24 Hours 2 tabs 202300 /0000 Active 2023 38067 13368 0 Every 4 hours as needed By Mouth False Vicks Vaporub 4.7 %-1.2 %-2.6 % topical ointment Apply topically to chest Three times daily as needed For CONGESTION topical 202300 Active 2023 09306 95260 1 Three times daily as needed Topica l False Tylenol 325 mg tablet 2 tabs By Mouth Every 4 hours as needed For DX- PAIN PRN FOR MILD PAIN, DO NOT EXCEED 3000MG APAP/24 HOURS 2 tabs 202300 Active 2023 80709 25317 0 Every 4 hours as needed By Mouth False Tramadol 50 mg tablet [generic] 1 tab By Mouth Every 4 hours as needed For DX- PAIN 5-10 1 tab 03/10 Inactiv e 2023 75040 78094 0 Every 4 hours as needed By Mouth False Saline Mist 0.65 % nasal spray aerosol 2 sprays Nares Four times daily as needed For DRYNESS 2 sprays 202300 / Active 2023 90707 36622 8 Four times daily as needed Nares False Dulcolax (bisacodyl) 10 mg rectal suppository Daily as needed For Constipation 1 sup 202300 / Active 2023 63152 86173 1 Daily as needed Rectal False Hydrocortis one-pramoxi ne 1 %-1 % rectal cream [generic] 1 mague Rectal Four times daily as needed For hemorroid pain 1 mague 202300 /0000 Active 2023 90058 71317 4 Four times daily as needed Rectal False Melatonin 3 mg tablet [generic] 1 tab By Mouth At bedtime as needed For INSOMNIA 1 tab 12/24 Inactiv e 2023 28189 61840 8 At bedtime as needed By Mouth False Milk of Magnesia 400 mg/5 mL oral suspension 30ml By Mouth Daily as needed Daily as needed for constipation one time daily if no BM, on day 4 of no BM (PRN refer to instructions) For Constipation For Constipatioin 30ml 2023 Active 2023 09498 96886 2 Daily as needed By Mouth False Baclofen 20 mg tablet [generic] 20 mg By Mouth 4 times a day For MUSCLE SPASMS 20 mg 2023 Active 2023 52671 40728 1 4 times a day By Mouth False Melatonin 3 mg tablet [generic] 1 tab By Mouth At bedtime as needed For INSOMNIA 1 tab 2023 Active 2023 35666 79825 8 At bedtime as needed By Mouth False Bactrim DS 800 mg-160 mg tablet 1 tab By Mouth Twice daily For URINARY TRACT INFECTION, SITE NOT SPECIFIED 1 tab 01/06 Inactiv e 2023 48709 62148 1 Twice daily By Mouth N39.0 False Cefdinir 300 mg capsule [generic] 300 mg By Mouth Twice daily For UTI 300 mg 01/07 Inactiv e 2023 17668 79683 0 Twice daily By Mouth False Cefdinir 300 mg capsule [generic] 300 mg By Mouth Twice daily For UTI 300 mg 01/17 Inactiv e 2023 78054 52473 0 Twice daily By Mouth False Zyrtec 10 mg tablet 10 mg By Mouth Once daily For sinus congestion 10 mg 01/22 Inactiv e 2023 42679 85426 0 Once daily By Mouth False Tobramycin 0.3 %-dexametha sone 0.1 % eye drops,suspe nsion [generic] 0.3-0.1 % Left Eye 4 times a day For eye infection 0.3-0.1 % 02/05 Inactiv e 2023 06454 41484 5 4 times a day Left Eye False Fluconazole 150 mg tablet [generic] 150 mg By Mouth 1 time For yeast infection 150 mg 02/15 Inactiv e 2023 25727 72483 2 1 time By Mouth False Tramadol 50 mg tablet [generic] 1 tab By Mouth Every 4 hours as needed For DX- PAIN 5-10 1 tab 2023 00/00 /0000 Active 2023 19577 47033 0 Every 4 hours as needed By Mouth False Tobramycin 0.3 %-dexametha sone 0.1 % eye drops,suspe nsion [generic] 1 drop Left Eye 4 times a day For Inflammation of left eye 1 drop 05/08 Inactiv e 2023 46018 36777 5 4 times a day Left Eye False Voltaren Arthritis Pain 1 % topical gel 2 gm Topical Twice daily to rigth shoulder for 2 weeks For pain 2 gm 05/08 Inactiv e 2023 84118 41760 1 Twice daily Topica l False Chlorthalid one 25 mg tablet [generic] 12.5mg By Mouth Once daily For HTN 12.5mg 05/06 Inactiv e 2023 91924 27036 0 Once daily By Mouth False Chlorthalid one 25 mg tablet [generic] 12.5mg By Mouth Once daily For HTN 12.5mg 05/07 Inactiv e 2023 76426 51804 0 Once daily By Mouth False Chlorthalid one 25 mg tablet [generic] 05/07 Inactiv e 2023 58603 87539 0 Chlorthalid one 25 mg tablet [generic] 12.5mg By Mouth Once daily For HTN 12.5mg 06/26 Inactiv e 2023 20163 62234 0 Once daily By Mouth False Norvasc 5 mg tablet 5mg By Mouth Once daily, hold medication if systolic is less than 90 For HYPERTENSIVE HEART DISEASE WITHOUT HEART FAILURE 5mg 06/03 Inactiv e 2023 46079 46823 1 Once daily By Mouth I11.9 False Norvasc 5 mg tablet 5mg By Mouth Once daily, hold medication if systolic is less than 90 For HYPERTENSIVE HEART DISEASE WITHOUT HEART FAILURE 5mg 06/03 Inactiv e 2023 56048 24976 1 Once daily By Mouth I11.9 False Norvasc 5 mg tablet 5mg By Mouth Once daily, hold medication if systolic is less than 90 For HYPERTENSIVE HEART DISEASE WITHOUT HEART FAILURE 5mg 06/26 Inactiv e 2023 19602 21562 1 Once daily By Mouth I11.9 False [...] 10 mg 2023 00/00 /0000 Active 2023 44738 57230 1 Once daily By Mouth False DISCONTINUE [...] CAD 81 mg 06/14 Inactiv e 2023 73778 91934 9 Once daily By Mouth False Aspirin 81 mg tablet,camron yed release [generic] 06/14 Inactiv e 2023 34777 88072 9 Aspirin 81 mg tablet,camron yed release [generic] 81 mg By Mouth Once daily Do not crush, chew, or break For CAD 81 mg 06/154 Inactiv e 2023 30415 24157 9 Once daily By Mouth False Cefpodoxime 200 mg tablet [generic] 200mg By Mouth Twice daily For UTI 200mg 07/04 Inactiv e 2023 36684 81102 0 Twice daily By Mouth False Calcium citrate 250 mg tablet [generic] 06/26 Inactiv e 2023 73590 68200 6 Calcium citrate 250 mg tablet [generic] Once daily TAKE 4 TABLETS (1000MG) BY MOUTH For SUPPLEMENT 500 MG 2023 Active 2023 48966 12691 6 Once daily By Mouth False Norvasc 5 mg tablet 7.5 mg By Mouth Once daily Hold medication if SBP <90 For HYPERTENSIVE HEART DISEASE WITHOUT HEART FAILURE 7.5 mg 06/30 Inactiv e 2023 86379 05987 1 Once daily By Mouth I11.9 False Norvasc 5 mg tablet 7.5 mg By Mouth Once daily Hold medication if SBP <90 For HYPERTENSIVE HEART DISEASE WITHOUT HEART FAILURE 7.5 mg 07/06 Inactiv e 2023 97240 60484 1 Once daily By Mouth I11.9 False Simethicone 125 mg capsule [generic] 2 capule By Mouth Twice daily as needed For bloating/gas pain 2 capule 2023 Active 2023 47025 78752 0 Twice daily as needed By Mouth False Cepacol Sore Throat (benzocaine -menthol) 15 mg-2.6 mg lozenges 2 lozenges By Mouth Every 6 hours as needed For sore throat 2 lozenge s 2023 Active 2023 69903 04633 6 Every 6 hours as needed By Mouth False Cefepime 1 gram solution for injection [generic] 1g Intramuscular Every 12 hours 1g intramuscular ly ever 12 hours For UTI 1g 07/06 Inactiv e 2023 16827 94944 4 Every 12 hours Intram uscula r False Cefepime 1 gram solution for injection [generic] 07/06 Inactiv e 2023 97653 98418 4 Cefepime 1 gram solution for injection [generic] 1g Intramuscular Every 12 hours 1g intramuscular ly ever 12 hours For UTI Reconstitute with 2.4 ML of NSS. 1g 07/08 Inactiv e 2023 71233 98963 4 Every 12 hours Intram uscula r False Norvasc 5 mg tablet 07/06 Inactiv e 2023 00914 14104 1 I11.9 Norvasc 5 mg tablet 7.5 mg By Mouth Once daily Hold medication if SBP <90 For HYPERTENSIVE HEART DISEASE WITHOUT HEART FAILURE 7.5 mg 2023 000000 Active 2023 55836 69806 1 Once daily By Mouth I11.9 False Cefepime 1 gram solution for injection [generic] 07/08 Inactiv e 2023 32076 48715 4 Cefepime 1 gram solution for injection [generic] 1g Intramuscular Every 12 hours 1g intramuscular ly ever 12 hours For UTI Reconstitute with 2.4 ML of NSS. 1g 07/08 Inactiv e 2023 08802 19224 4 Every 12 hours Intram uscula r False Cefepime 1 gram solution for injection [generic] 07/08 Inactiv e 2023 96536 90113 4 Cefepime 1 gram solution for injection [generic] 1g Intramuscular Every 12 hours 1g intramuscular ly ever 12 hours For UTI Reconstitute with 2.4 ML of NSS. 1g 07/11 Active 2023 94506 70580 4 Every 12 hours Intram uscula r False Nystatin 100,000 unit/gram topical cream [generic] 100,000 unit Topical As Needed For DX- EXCORIATION 100,000 unit 12/12 Inactiv e 2023 00880 97381 5 Topica l False Vicks Vaporub 4.7 %-1.2 %-2.6 % topical ointment 4.7-1.2-2.6 Topical 3 times a day As Needed For DX- CONGESTION 4.7-1.2 -2.6 12/12 Inactiv e 2023 79424 72188 1 3 times a day Topica l False Ketoconazol e 2 % shampoo [generic] APPLY SHAMPOO TOPICALLY TO SCALP DURING HAIR WASHINGDX: ELVIA DERM OF SCALP For DX- ELIVA DERM OF SCALP 12/12 Inactiv e 2023 93922 24317 4 Topica l False THERA SILICONE SKIN GUARD Topical Twice daily 1 APPLICATION TOPICALLY IN THE MORNING AND AT BEDTIME TO SCROTUM For DX- PREVENTION 202300 Active 2023 Twice daily Topica l False Selenium sulfide 2.5 % lotion [generic] 2.5 % Topical EVERY MONDAY, MONDAY AND MONDAY AFTER SHOWER For DANDRUFF 2.5 % 202300 Active 2023 41223 95790 4 3 times a week Topica l False Nystatin (bulk) 100 million unit powder [generic] 100 million Topical Twice daily as needed For EXOCORATION 100 million 12/20 Inactiv e 2023 57169 53638 1 Twice daily as needed Topica l False Ketoconazol e 2 % shampoo [generic] Once daily APPLY SHAMPOO TOPICALLY TO SCALP DURING HAIR WASHING ON SHOWER DAYS- , , MON For ELVIA DERM OF SCAP 2 % 202300 Active 2023 12991 84571 4 Once daily Topica l False Nystatin 100,000 unit/gram topical cream [generic] 1 mague Topical Twice daily as needed For EXOCORATION 1 mague 06/05 Inactiv e 2023 09590 54761 5 Twice daily as needed Topica l False Nystatin 100,000 unit/gram topical powder [generic] 100,000 unit Topical Twice daily to scrotum with AM and PM care For Scrotal excoriation 100,000 unit 06/05 Inactiv e 2023 32509 59238 5 Twice daily Topica l False Problems [...] weight Temperature SpO2 Blood Sugar Pulse Respirations 41 1 87.00 mm[Hg] - Sitting 189.00 mm[Hg] - Sitting 202 28018 2 76.00 mm[Hg] - Sitting 136.00 mm[Hg] - Sitting 203 59255 2 259.80 NI 203 42171 5 93.00 mm[Hg] - Sitting 137.00 mm[Hg] - Sitting 204 49365 2 259.40 NI 204 80226 1 78.00 mm[Hg] - Sitting 144.00 mm[Hg] - Sitting 205 38832 4 85.00 mm[Hg] - Sitting 142.00 mm[Hg] - Sitting 30288 206 25798 9 76.00 mm[Hg] - Sitting 132.00 mm[Hg] - Sitting 58364 208 89311 9 82.00 mm[Hg] - Sitting 128.00 mm[Hg] - Sitting 00171 209 65330 2 78.00 mm[Hg] - Sitting 130.00 mm[Hg] - Sitting 15039 210 16419 6 80.00 mm[Hg] - Sitting 132.00 mm[Hg] - Sitting 54918 211 44391 5 78.00 mm[Hg] - Sitting 125.00 mm[Hg] - Sitting 45853 216 82321 1 254.10 NI 29139 216 89164 2 79.00 mm[Hg] - Sitting 157.00 mm[Hg] - Sitting 73 NI 254.10 NI 36.30 Tympanic 95.00 % 72.00/ min 16.00/min 00076 216 62864 4 98.80 Tympanic 28618 216 96519 2 78.00 mm[Hg] - Sitting 164.00 mm[Hg] - Sitting 11369 217 49434 3 98.20 Tympanic 55376 217 31970 5 73.00 mm[Hg] - Sitting 159.00 mm[Hg] - Sitting 39894 217 88228 9 98.40 Forehead Scan 67200 218 48924 3 97.90 Tympanic 31549 218 73493 5 77.00 mm[Hg] - Sitting 137.00 mm[Hg] - Sitting 46904 219 99894 0 97.70 Tympanic 00236 219 73326 6 97.60 Tympanic 55883 219 02655 4 76.00 mm[Hg] - Sitting 139.00 mm[Hg] - Sitting 70067 219 71665 4 97.80 Forehead Scan 64916 220 34875 9 97.90 Tympanic 51824 220 17984 9 76.00 mm[Hg] - Sitting 138.00 mm[Hg] - Sitting 36054 220 51425 6 98.10 Tympanic 82322 221 15214 5 67.00 mm[Hg] - Sitting 142.00 mm[Hg] - Sitting 78599 221 73813 8 98.20 Tympanic 18982 221 70084 0 98.30 Tympanic 59962 222 60175 7 98.20 Tympanic 24948 222 80874 8 97.90 Tympanic 49980 223 30675 3 98.20 Tympanic 65194 223 69841 3 98.00 Tympanic 80332 224 04862 0 59.00 mm[Hg] - Sitting 111.00 mm[Hg] - Sitting 98.40 Forehead Scan 95.00 % 56.00/ min 18.00/min 45628 224 40976 9 98.20 Forehead Scan 74769 224 28480 3 97.90 Tympanic 56685 225 83648 4 98.20 Tympanic 69154 225 15865 8 97.50 Forehead Scan 49473 228 91153 0 55.00 mm[Hg] - Sitting 118.00 mm[Hg] - Sitting 98.40 Tympanic 69.00/ min 68352 229 67020 8 78.00 mm[Hg] - Sitting 152.00 mm[Hg] - Sitting 39190 230 97159 0 62.00 mm[Hg] - Sitting 122.00 mm[Hg] - Sitting Immunizations Vaccine Date Status [...]
--- OUTSIDE RECORDS SUMMARY | 2024-07-26 11:23 | External Medical Summary | Continuity Of Care Document ---
Author Name Unknown Address [address] [place] [address] Organization [facility] () Care Team Providers Care Fruit Vendor Name Role Phone DO Pritchett Amy Primary Care Provider [phone] Allergies Allergy Reaction Start Date End Date Status AMINOGLYCOSIDES Active CIPRO Active GENTAMICIN Active NSAIDS (NON-STEROIDAL ANTI-INFLAMMATORY DRUG) 0 Active IBUPROFEN Active QUINOLONES Active VALIUM Active Medications Medication Instructions Dosage Start Date End Date Status Order Date Drug Code Frequency Route of Admin Diagnosis Code Substitutions Allowed Spikevax [id number](1 2y up)(PF) 50 mcg/0.5 mL intramuscul ar suspension [COVID [id number](12 up)(andu)(P F)] 0.5mL Intramuscular 1 time Monitory 15 Minutes post injection for adverse effects; record site/temp For COVID 19 PREVENTION 0.5mL 01/02 Inactiv e 2023 59644 33749 4 1 time Intram uscula r False [facility] - Nurse initials indicate verificatio n that [id number] vaccine was administere d by [facility] jon 1 Intramuscular 1 time ( Indicate vaccine type) For vaccine 1 05/03 Inactiv e 2023 1 time Intram uscula r False Lisinopril 40 mg tablet [generic] TAKE ONE (1) TABLET BY MOUTH IN THE MORNING. For DX- HTN 1 2023 Active 2023 78561 49270 1 Once daily By Mouth False Tizanidine 2 mg tablet [generic] TAKE ONE (1) TABLET BY MOUTH ONCE DAILY For MUSCLE SPASM 1 2023 Active 2023 15030 06116 0 Once daily By Mouth M62.838 False Tamsulosin 0.4 mg capsule [generic] TAKE (1) CAPSULE BY MOUTH AT BEDTIME For SPASMS 1 2023 Active 2023 84983 53065 0 Once daily By Mouth False Aspirin 81 mg tablet Once daily 1 TABLET BY MOUTH IN THE MORNING For DX- CAD DO NOT CRUSH, CHEW OR BREAK 81 mg 06/12 Inactiv e 2023 Once daily By Mouth False Baclofen 20 mg tablet [generic] 20 mg By Mouth 4 times a day For DX- MUSCLE SPASMS 20 mg 12/12 Inactiv e 2023 97807 18127 1 4 times a day By Mouth False Calcium citrate 250 mg tablet Once daily 4 TABLET BY MOUTH For DX- SUPPLEMENT 250 mg calci 12/12 Inactiv e 2023 Once daily By Mouth False Co Q-10 100 mg capsule 100 mg By Mouth Once daily For DX- SUPPLEMENT 100 mg 06/20 Inactiv e 2023 40712 06451 5 Once daily By Mouth False Furosemide 20 mg tablet [generic] 20 mg By Mouth Once daily For DX-CHF 20 mg 12/12 Inactiv e 2023 20227 24256 0 Once daily By Mouth False Gabapentin 300 mg capsule [generic] 300 mg By Mouth 3 times a day For DX- NEUROPATHY 300 mg 12/12 Inactiv e 2023 67645 74931 4 3 times a day By Mouth False Loratadine 10 mg tablet [generic] 10 mg By Mouth Once daily For DX- ALLERGIES 10 mg 2023 Active 2023 91904 80393 1 Once daily By Mouth False Miralax 17 gram/dose oral powder 17 gram/dose By Mouth IN THE MORNING Mix 1 TABLESPOON IN 8 OZ OF FLUID HOLD FOR LOOSE STOOLS For DX- CONSTIPATION 17 gram/do se 12/12 Inactiv e 2023 19649 41801 0 Once daily By Mouth False Paroxetine 30 mg tablet [generic] 30 mg By Mouth Once daily For DX- DEPRESSION 30 mg 2023 00/00 /0000 Active 2023 83637 27414 3 Once daily By Mouth False Potassium citrate ER 15 mEq (1,620 mg) tablet,exte nded release [generic] 15 mEq By Mouth 3 times a day For DX- SUPPLEMENT/DI URETIC USE/ HYPOCITRAUIRA DO NOT CRUSH 15 mEq 12/12 Inactiv e 2023 93387 22916 1 3 times a day By Mouth [...] For DX- DANDRUFF 12/12 Inactiv e 2023 43149 40613 4 3 times a week Topica l False Acetaminoph en 325 mg tablet [generic] TAKE 2 TABS (650MG) BY MOUTH EVERY 4 HOURS NEEDED FOR TEMP >100 NOT TO EXCEED 3GM/24HRS TAKE 2 TABS (650MG) BY MOUTH EVERY 4 HOURS NEEDED FOR TEMP >100 NOT TO EXCEED 3GM/24HRS For DX-FEVER 2 12/12 Inactiv e 2023 11104 01220 0 By Mouth False MILK OF MAGNESIA ADMINISTER 30 ML BY MOUTH ONCE DAILY NEEDED FOR CONSTIPATION X3 DAYS WITH NO BM. For DX- CONSTIPATION 30ML 12/12 Inactiv e 2023 13025 40908 9 By Mouth False Enema Disposable 19 gram-7 gram/118 mL ADMINISTER ONE ENEMA RECTALLY ONCE DAILY NEEDED FOR CONSTIPATION ON DAY 6 OF NO BM For DX- CONSTIPATION 12/12 Inactiv e 2023 81951 17123 1 Rectal False TUMS EXTRA STR 750MG TAKE (1) TABLET BY MOUTH THREE TIMES DAILY NEEDED FOR INDIGESTION For DX- INDIGESTION 1 12/12 Inactiv e 2023 05639 62565 8 By Mouth False Vitamin D3 25 [...] CONSTIPATION 10 mg 12/12 Inactiv e 2023 72831 93004 1 Rectal False Melatonin 3 mg tablet [generic] 3 mg By Mouth As Needed For DX-INSOMMIA 3 mg 12/12 Inactiv e 2023 36376 12283 8 By Mouth False Hydrocortis one 1 % topical cream [generic] 1 % Topical As Needed For DX- PAIN 1 % 12/12 Inactiv e 2023 55034 05578 1 Topica l False HYDROCORTIS ONE/PARMOXI NE [...] 5-10 50 mg 12/20 Inactiv e 2023 42611 02292 0 Every 4 hours as needed By Mouth False Tylenol 325 mg tablet 325 mg By Mouth Every 4 hours as needed For DX- PAIN PRN FOR MILD PAIN, DO NOT EXCEED 3000MG APAP/24 HOURS 325 mg 12/20 Inactiv e 2023 92414 91647 0 Every 4 hours as needed By Mouth False Baclofen 20 mg tablet [generic] 20 mg By Mouth 4 times a day For MUSCLE SPASMS 20 mg 12/20 Inactiv e 2023 27599 99270 1 4 times a day By Mouth False Calcium citrate 250 mg tablet [generic] Once daily TAKE 4 TABLETS (1000MG) BY MOUTH For SUPPLEMENT 1000 MG 06/26 Inactiv e 2023 94331 40716 6 Once daily By Mouth False Dulcolax (bisacodyl) 10 mg rectal suppository 10 mg Rectal Once daily For CONSTIPATION *MAY HOLD FOR LOOSE STOOLS* 10 mg 2023 Active 2023 75518 35105 1 Once daily Rectal False Gabapentin 300 mg capsule [generic] 300 mg By Mouth 3 times a day For NEUROPATHY 300 mg 2023 Active 2023 58836 02723 4 3 times a day By Mouth False Potassium citrate ER 15 mEq (1,620 mg) tablet,exte nded release [generic] 15 mEq By Mouth 3 times a day For SUPPLEMENT/DI URETIC USE/HYPOCITRA URIA 15 mEq 06/11 Inactiv e 2023 99153 43803 1 3 times a day By Mouth False Potassium chloride ER 20 mEq tablet,exte nded release [generic] 20 mEq By Mouth 3 times a day *DO NOT CRUSH, CHEW OR BREAK* For SUPPLEMENT 20 mEq 12/18 Inactiv e 2023 84386 42024 1 3 times a day By Mouth False Tizanidine 4 mg tablet [generic] 4 mg By Mouth Once daily For MUSCLE SPASMS 4 mg 2023 Active 2023 55691 09427 0 Once daily By Mouth False Tylenol 325 mg tablet 2 tabs By Mouth Every 4 hours as needed For Fever >100 DO NOT EXCEED 3000 MG APAP/24 Hours 2 tabs 12/20 Inactiv e 2023 78007 95153 0 Every 4 hours as needed By Mouth False Dulcolax (bisacodyl) 10 mg rectal suppository Daily as needed For Constipation 1 sup 12/20 Inactiv e 2023 08205 23817 1 Daily as needed Rectal False Fleet Enema 19 gram-7 gram/118 mL 1 Rectal Daily as neededFor Constipation 1 12/20 Inactiv e 2023 26080 25054 6 Daily as needed Rectal False Milk of Magnesia 400 mg/5 mL oral suspension [Magnesium hydroxide] PRN 30ml By Mouth Daily as needed for constipation one time daily if no BM, on day 4 of no BM (PRN refer to instructions) For Constipation For Constipatioin 30ml 12/20 Inactiv e 2023 54060 68573 6 1 time By Mouth False Melatonin 3 mg tablet [generic] 3 mg By Mouth Once daily As Needed For INSOMNIA 3 mg 12/20 Inactiv e 2023 83485 50758 8 Once daily By Mouth False Hydrocortis one 1 % topical cream [generic] 1 % Rectal Four times daily as needed For hemorroid pain 1 % 12/20 Inactiv e 2023 15660 33772 1 Four times daily as needed Rectal False X-STGH ANTACID 750MG CHEW TAKE (1) TABLET BY MOUTH THREE TIMES DAILY NEEDED FOR INDIGESTION 12/20 Inactiv e 2023 77519 89244 4 Three times daily as needed Saline Mist 0.65 % nasal spray aerosol 0.65 % Nares Four times daily as needed For DRYNESS 0.65 % 12/20 Inactiv e 2023 29236 53332 8 Four times daily as needed Nares False Vicks Vaporub 4.7 %-1.2 %-2.6 % topical ointment Apply topically to chest Three times daily as needed For CONGESTION 4.7-1.2 -2.6 12/20 Inactiv e 2023 07195 51198 1 Three times daily as needed Topica l False VITAMIN D3 2000U CAP TAKE ONE (1) CAPSULE BY MOUTH DAILY* DO NOT CRUSH, CHEW OR BREAK* For Supplement 1 capsule 12/19 Inactiv e 2023 70266 40977 0 Once daily By Mouth False Potassium chloride ER 20 mEq tablet,exte nded release(par t/cryst) [generic] TAKE (1) TABLET BY MOUTH THREE TIMES DAILY (MORNING, AFTERNOON, EVENING)*DO NOT CRUSH, CHEW, OR BREAK* For SUPPLEMENT 20 MEQ 06/11 Inactiv e 2023 37171 81018 5 3 times a day By Mouth False Aspirin 81 mg tablet,camron yed release [generic] TAKE ONE (1) TABLET BY MOUTH ONCE DAILY*DO NOT CRUSH, CHEW OR BREAK* For CAD 81 MG 12/22 Inactiv e 2023 12138 01332 0 Once daily By Mouth False Furosemide 20 mg tablet [generic] TAKE 1 AND 1/2 TABLETS (30MG) BY MOUTH ONCE DAILY For CHF 30mg 2023 Active 2023 67951 03847 1 Once daily By Mouth False Polyethylen e glycol 3350 17 gram/dose oral powder [generic] MIX 17 GRAMS (1 CAPFUL) IN 60Z OF LIQUID AND DRINK BY MOUTH ONCE DAILY *HOLD FOR LOOSE STOOLS* For constipation 17 g 2023 Active 2023 34888 33793 3 Once daily By Mouth False Vitamin D3 50 mcg (2,000 unit) capsule Once daily TAKE ONE (1) CAPSULE BY MOUTH DAILY* DO NOT CRUSH, CHEW OR BREAK* For Supplement 1 capsule 02/07 Inactiv e 2023 32586 20670 2 Once daily By Mouth False Fleet Enema 19 gram-7 gram/118 mL 1 Rectal Daily as neededFor Constipation 1 2023 0000 Active 2023 03663 64572 6 Daily as needed Rectal False Tums E-X 300 mg (as calcium carbonate 750 mg) chewable tablet 1 tab By Mouth TAKE (1) TABLET BY MOUTH THREE TIMES DAILY NEEDED FOR INDIGESTION 1 tab 202300 /0000 Active 2023 61373 50902 1 Three times daily as needed By Mouth False Tylenol 325 mg tablet 2 tabs By Mouth Every 4 hours as needed For Fever >100 DO NOT EXCEED 3000 MG APAP/24 Hours 2 tabs 202300 /0000 Active 2023 76216 12025 0 Every 4 hours as needed By Mouth False Vicks Vaporub 4.7 %-1.2 %-2.6 % topical ointment Apply topically to chest Three times daily as needed For CONGESTION topical 202300 Active 2023 02692 15905 1 Three times daily as needed Topica l False Tylenol 325 mg tablet 2 tabs By Mouth Every 4 hours as needed For DX- PAIN PRN FOR MILD PAIN, DO NOT EXCEED 3000MG APAP/24 HOURS 2 tabs 202300 Active 2023 73752 75142 0 Every 4 hours as needed By Mouth False Tramadol 50 mg tablet [generic] 1 tab By Mouth Every 4 hours as needed For DX- PAIN 5-10 1 tab 03/10 Inactiv e 2023 21699 55173 0 Every 4 hours as needed By Mouth False Saline Mist 0.65 % nasal spray aerosol 2 sprays Nares Four times daily as needed For DRYNESS 2 sprays 202300 / Active 2023 77296 51677 8 Four times daily as needed Nares False Dulcolax (bisacodyl) 10 mg rectal suppository Daily as needed For Constipation 1 sup 202300 / Active 2023 28046 54479 1 Daily as needed Rectal False Hydrocortis one-pramoxi ne 1 %-1 % rectal cream [generic] 1 mague Rectal Four times daily as needed For hemorroid pain 1 mague 202300 /0000 Active 2023 65171 57579 4 Four times daily as needed Rectal False Melatonin 3 mg tablet [generic] 1 tab By Mouth At bedtime as needed For INSOMNIA 1 tab 12/24 Inactiv e 2023 93171 35151 8 At bedtime as needed By Mouth False Milk of Magnesia 400 mg/5 mL oral suspension 30ml By Mouth Daily as needed Daily as needed for constipation one time daily if no BM, on day 4 of no BM (PRN refer to instructions) For Constipation For Constipatioin 30ml 2023 Active 2023 77586 51778 2 Daily as needed By Mouth False Baclofen 20 mg tablet [generic] 20 mg By Mouth 4 times a day For MUSCLE SPASMS 20 mg 2023 Active 2023 44841 58148 1 4 times a day By Mouth False Melatonin 3 mg tablet [generic] 1 tab By Mouth At bedtime as needed For INSOMNIA 1 tab 2023 Active 2023 10546 79378 8 At bedtime as needed By Mouth False Bactrim DS 800 mg-160 mg tablet 1 tab By Mouth Twice daily For URINARY TRACT INFECTION, SITE NOT SPECIFIED 1 tab 01/06 Inactiv e 2023 79003 67039 1 Twice daily By Mouth N39.0 False Cefdinir 300 mg capsule [generic] 300 mg By Mouth Twice daily For UTI 300 mg 01/07 Inactiv e 2023 73185 56045 0 Twice daily By Mouth False Cefdinir 300 mg capsule [generic] 300 mg By Mouth Twice daily For UTI 300 mg 01/17 Inactiv e 2023 41380 24431 0 Twice daily By Mouth False Zyrtec 10 mg tablet 10 mg By Mouth Once daily For sinus congestion 10 mg 01/22 Inactiv e 2023 38015 97052 0 Once daily By Mouth False Tobramycin 0.3 %-dexametha sone 0.1 % eye drops,suspe nsion [generic] 0.3-0.1 % Left Eye 4 times a day For eye infection 0.3-0.1 % 02/05 Inactiv e 2023 00741 47000 5 4 times a day Left Eye False Fluconazole 150 mg tablet [generic] 150 mg By Mouth 1 time For yeast infection 150 mg 02/15 Inactiv e 2023 15171 33627 2 1 time By Mouth False Tramadol 50 mg tablet [generic] 1 tab By Mouth Every 4 hours as needed For DX- PAIN 5-10 1 tab 2023 00/00 /0000 Active 2023 00736 08841 0 Every 4 hours as needed By Mouth False Tobramycin 0.3 %-dexametha sone 0.1 % eye drops,suspe nsion [generic] 1 drop Left Eye 4 times a day For Inflammation of left eye 1 drop 05/08 Inactiv e 2023 66489 37478 5 4 times a day Left Eye False Voltaren Arthritis Pain 1 % topical gel 2 gm Topical Twice daily to rigth shoulder for 2 weeks For pain 2 gm 05/08 Inactiv e 2023 59361 04077 1 Twice daily Topica l False Chlorthalid one 25 mg tablet [generic] 12.5mg By Mouth Once daily For HTN 12.5mg 05/06 Inactiv e 2023 70701 68079 0 Once daily By Mouth False Chlorthalid one 25 mg tablet [generic] 12.5mg By Mouth Once daily For HTN 12.5mg 05/07 Inactiv e 2023 50374 05527 0 Once daily By Mouth False Chlorthalid one 25 mg tablet [generic] 05/07 Inactiv e 2023 60664 22690 0 Chlorthalid one 25 mg tablet [generic] 12.5mg By Mouth Once daily For HTN 12.5mg 06/26 Inactiv e 2023 38415 87414 0 Once daily By Mouth False Norvasc 5 mg tablet 5mg By Mouth Once daily, hold medication if systolic is less than 90 For HYPERTENSIVE HEART DISEASE WITHOUT HEART FAILURE 5mg 06/03 Inactiv e 2023 06572 70782 1 Once daily By Mouth I11.9 False Norvasc 5 mg tablet 5mg By Mouth Once daily, hold medication if systolic is less than 90 For HYPERTENSIVE HEART DISEASE WITHOUT HEART FAILURE 5mg 06/03 Inactiv e 2023 97938 49477 1 Once daily By Mouth I11.9 False Norvasc 5 mg tablet 5mg By Mouth Once daily, hold medication if systolic is less than 90 For HYPERTENSIVE HEART DISEASE WITHOUT HEART FAILURE 5mg 06/26 Inactiv e 2023 38540 86788 1 Once daily By Mouth I11.9 False [...] 10 mg 2023 00/00 /0000 Active 2023 15245 90441 1 Once daily By Mouth False DISCONTINUE [...] CAD 81 mg 06/14 Inactiv e 2023 84698 69807 9 Once daily By Mouth False Aspirin 81 mg tablet,camron yed release [generic] 06/14 Inactiv e 2023 89115 63755 9 Aspirin 81 mg tablet,camron yed release [generic] 81 mg By Mouth Once daily Do not crush, chew, or break For CAD 81 mg 06/154 Inactiv e 2023 78628 45508 9 Once daily By Mouth False Cefpodoxime 200 mg tablet [generic] 200mg By Mouth Twice daily For UTI 200mg 07/04 Inactiv e 2023 99417 67482 0 Twice daily By Mouth False Calcium citrate 250 mg tablet [generic] 06/26 Inactiv e 2023 63112 28780 6 Calcium citrate 250 mg tablet [generic] Once daily TAKE 4 TABLETS (1000MG) BY MOUTH For SUPPLEMENT 500 MG 2023 Active 2023 14430 61068 6 Once daily By Mouth False Norvasc 5 mg tablet 7.5 mg By Mouth Once daily Hold medication if SBP <90 For HYPERTENSIVE HEART DISEASE WITHOUT HEART FAILURE 7.5 mg 06/30 Inactiv e 2023 66992 42141 1 Once daily By Mouth I11.9 False Norvasc 5 mg tablet 7.5 mg By Mouth Once daily Hold medication if SBP <90 For HYPERTENSIVE HEART DISEASE WITHOUT HEART FAILURE 7.5 mg 07/06 Inactiv e 2023 28279 63792 1 Once daily By Mouth I11.9 False Simethicone 125 mg capsule [generic] 2 capule By Mouth Twice daily as needed For bloating/gas pain 2 capule 2023 Active 2023 71395 90583 0 Twice daily as needed By Mouth False Cepacol Sore Throat (benzocaine -menthol) 15 mg-2.6 mg lozenges 2 lozenges By Mouth Every 6 hours as needed For sore throat 2 lozenge s 2023 Active 2023 86462 13227 6 Every 6 hours as needed By Mouth False Cefepime 1 gram solution for injection [generic] 1g Intramuscular Every 12 hours 1g intramuscular ly ever 12 hours For UTI 1g 07/06 Inactiv e 2023 11510 04742 4 Every 12 hours Intram uscula r False Cefepime 1 gram solution for injection [generic] 07/06 Inactiv e 2023 24745 29431 4 Cefepime 1 gram solution for injection [generic] 1g Intramuscular Every 12 hours 1g intramuscular ly ever 12 hours For UTI Reconstitute with 2.4 ML of NSS. 1g 07/08 Inactiv e 2023 91951 08217 4 Every 12 hours Intram uscula r False Norvasc 5 mg tablet 07/06 Inactiv e 2023 83519 36385 1 I11.9 Norvasc 5 mg tablet 7.5 mg By Mouth Once daily Hold medication if SBP <90 For HYPERTENSIVE HEART DISEASE WITHOUT HEART FAILURE 7.5 mg 2023 000000 Active 2023 84893 59409 1 Once daily By Mouth I11.9 False Cefepime 1 gram solution for injection [generic] 07/08 Inactiv e 2023 02980 81010 4 Cefepime 1 gram solution for injection [generic] 1g Intramuscular Every 12 hours 1g intramuscular ly ever 12 hours For UTI Reconstitute with 2.4 ML of NSS. 1g 07/08 Inactiv e 2023 12260 21118 4 Every 12 hours Intram uscula r False Cefepime 1 gram solution for injection [generic] 07/08 Inactiv e 2023 08801 43561 4 Cefepime 1 gram solution for injection [generic] 1g Intramuscular Every 12 hours 1g intramuscular ly ever 12 hours For UTI Reconstitute with 2.4 ML of NSS. 1g 07/11 Active 2023 25001 40291 4 Every 12 hours Intram uscula r False Nystatin 100,000 unit/gram topical cream [generic] 100,000 unit Topical As Needed For DX- EXCORIATION 100,000 unit 12/12 Inactiv e 2023 69418 47519 5 Topica l False Vicks Vaporub 4.7 %-1.2 %-2.6 % topical ointment 4.7-1.2-2.6 Topical 3 times a day As Needed For DX- CONGESTION 4.7-1.2 -2.6 12/12 Inactiv e 2023 87328 62313 1 3 times a day Topica l False Ketoconazol e 2 % shampoo [generic] APPLY SHAMPOO TOPICALLY TO SCALP DURING HAIR WASHINGDX: ELVIA DERM OF SCALP For DX- ELVIA DERM OF SCALP 12/12 Inactiv e 2023 66143 77444 4 Topica l False THERA SILICONE SKIN GUARD Topical Twice daily 1 APPLICATION TOPICALLY IN THE MORNING AND AT BEDTIME TO SCROTUM For DX- PREVENTION 202300 Active 2023 Twice daily Topica l False Selenium sulfide 2.5 % lotion [generic] 2.5 % Topical EVERY MONDAY, MONDAY AND MONDAY AFTER SHOWER For DANDRUFF 2.5 % 202300 Active 2023 68392 78504 4 3 times a week Topica l False Nystatin (bulk) 100 million unit powder [generic] 100 million Topical Twice daily as needed For EXOCORATION 100 million 12/20 Inactiv e 2023 42508 66847 1 Twice daily as needed Topica l False Ketoconazol e 2 % shampoo [generic] Once daily APPLY SHAMPOO TOPICALLY TO SCALP DURING HAIR WASHING ON SHOWER DAYS- , , MON For ELVIA DERM OF SCAP 2 % 202300 Active 2023 13382 88277 4 Once daily Topica l False Nystatin 100,000 unit/gram topical cream [generic] 1 mague Topical Twice daily as needed For EXOCORATION 1 mague 06/05 Inactiv e 2023 80570 06399 5 Twice daily as needed Topica l False Nystatin 100,000 unit/gram topical powder [generic] 100,000 unit Topical Twice daily to scrotum with AM and PM care For Scrotal excoriation 100,000 unit 06/05 Inactiv e 2023 35408 88590 5 Twice daily Topica l False Problems [...] adjustment of urinary device 07/21/2023 Active Z79.01 [employer] (current) use of anticoagulants 07/21 Active N31.9 Neuromuscular dysfun ction of bladder, unspecified 07/21/2023 Active VITAL SIGNS Date Time Diastolic blood pressure Systolic blood pressure Body height Body weight Temperature SpO2 Blood Sugar Pulse Respirations 2 76.00 mm[Hg] - Sitting 136.00 mm[Hg] - Sitting 203 92430 2 259.80 NI 203 00046 5 93.00 mm[Hg] - Sitting 137.00 mm[Hg] - Sitting 204 10687 2 259.40 NI 204 49612 1 78.00 mm[Hg] - Sitting 144.00 mm[Hg] - Sitting 205 80255 4 85.00 mm[Hg] - Sitting 142.00 mm[Hg] - Sitting 206 27037 9 76.00 mm[Hg] - Sitting 132.00 mm[Hg] - Sitting 27929 208 94759 9 82.00 mm[Hg] - Sitting 128.00 mm[Hg] - Sitting 49110 209 07418 2 78.00 mm[Hg] - Sitting 130.00 mm[Hg] - Sitting 16044 210 41525 6 80.00 mm[Hg] - Sitting 132.00 mm[Hg] - Sitting 95563 211 03976 5 78.00 mm[Hg] - Sitting 125.00 mm[Hg] - Sitting 42462 216 23574 1 254.10 NI 11858 216 85961 2 79.00 mm[Hg] - Sitting 157.00 mm[Hg] - Sitting 73 NI 254.10 NI 36.30 Tympanic 95.00 % 72.00/ min 16.00/min 67349 216 93720 4 98.80 Tympanic 48795 216 79583 2 78.00 mm[Hg] - Sitting 164.00 mm[Hg] - Sitting 41636 217 69522 3 98.20 Tympanic 26906 217 40843 5 73.00 mm[Hg] - Sitting 159.00 mm[Hg] - Sitting 85902 217 44460 9 98.40 Forehead Scan 55791 218 25548 3 97.90 Tympanic 01728 218 47366 5 77.00 mm[Hg] - Sitting 137.00 mm[Hg] - Sitting 82851 219 63316 0 97.70 Tympanic 59865 219 42050 6 97.60 Tympanic 55124 219 57241 4 76.00 mm[Hg] - Sitting 139.00 mm[Hg] - Sitting 54547 219 38451 4 97.80 Forehead Scan 89357 220 76574 9 97.90 Tympanic 50056 220 04036 9 76.00 mm[Hg] - Sitting 138.00 mm[Hg] - Sitting 36832 220 68442 6 98.10 Tympanic 69497 221 96723 5 67.00 mm[Hg] - Sitting 142.00 mm[Hg] - Sitting 20332 221 77794 8 98.20 Tympanic 88807 221 40075 0 98.30 Tympanic 32576 222 27736 7 98.20 Tympanic 86573 222 55633 8 97.90 Tympanic 53838 223 76056 3 98.20 Tympanic 81990 223 87196 3 98.00 Tympanic 74523 224 14386 0 59.00 mm[Hg] - Sitting 111.00 mm[Hg] - Sitting 98.40 Forehead Scan 95.00 % 56.00/ min 18.00/min 64156 224 63546 9 98.20 Forehead Scan 32505 224 95431 3 97.90 Tympanic 08139 225 55578 4 98.20 Tympanic 38951 225 46047 8 97.50 Forehead Scan 21511 228 32501 0 55.00 mm[Hg] - Sitting 118.00 mm[Hg] - Sitting 98.40 Tympanic 69.00/ min 49129 229 91061 8 78.00 mm[Hg] - Sitting 152.00 mm[Hg] - Sitting 31156 230 33723 0 62.00 mm[Hg] - Sitting 122.00 mm[Hg] - Sitting 73104 231 46119 7 72.00 mm[Hg] - Lying Down 140.00 mm[Hg] - Lying Down 48092 101 44673 3 97.70 Forehead Scan 27369 101 02642 3 72.00 mm[Hg] - Lying Down 142.00 mm[Hg] - Lying Down Immunizations Vaccine Date [...]
--- OUTSIDE RECORDS SUMMARY | 2024-07-26 11:23 | External Medical Summary | Continuity Of Care Document ---
Author Name Unknown Address [address] [place] [address] Organization [facility] () Care Team Providers Care Regulatory Affairs Analyst Name Role Phone DO Pritchett Amy Primary Care Provider [phone] Allergies Allergy Reaction Start Date End Date Status AMINOGLYCOSIDES Active CIPRO Active GENTAMICIN Active NSAIDS (NON-STEROIDAL ANTI-INFLAMMATORY DRUG) 0 Active IBUPROFEN Active QUINOLONES Active VALIUM Active Medications Medication Instructions Dosage Start Date End Date Status Order Date Drug Code Frequency Route of Admin Diagnosis Code Substitutions Allowed Spikevax [id number](1 2y up)(PF) 50 mcg/0.5 mL intramuscul ar suspension [COVID [id number](12 up)(andu)(P F)] 0.5mL Intramuscular 1 time Monitory 15 Minutes post injection for adverse effects; record site/temp For COVID 19 PREVENTION 0.5mL 01/02 Inactiv e 2023 61480 10919 4 1 time Intram uscula r False [facility] - Nurse initials indicate verificatio n that [id number] vaccine was administere d by [facility] jon 1 Intramuscular 1 time ( Indicate vaccine type) For vaccine 1 05/03 Inactiv e 2023 1 time Intram uscula r False Lisinopril 40 mg tablet [generic] TAKE ONE (1) TABLET BY MOUTH IN THE MORNING. For DX- HTN 1 2023 Active 2023 56007 57139 1 Once daily By Mouth False Tizanidine 2 mg tablet [generic] TAKE ONE (1) TABLET BY MOUTH ONCE DAILY For MUSCLE SPASM 1 2023 Active 2023 25289 19958 0 Once daily By Mouth M62.838 False Tamsulosin 0.4 mg capsule [generic] TAKE (1) CAPSULE BY MOUTH AT BEDTIME For SPASMS 1 2023 Active 2023 32499 35265 0 Once daily By Mouth False Aspirin 81 mg tablet Once daily 1 TABLET BY MOUTH IN THE MORNING For DX- CAD DO NOT CRUSH, CHEW OR BREAK 81 mg 06/12 Inactiv e 2023 Once daily By Mouth False Baclofen 20 mg tablet [generic] 20 mg By Mouth 4 times a day For DX- MUSCLE SPASMS 20 mg 12/12 Inactiv e 2023 55467 68814 1 4 times a day By Mouth False Calcium citrate 250 mg tablet Once daily 4 TABLET BY MOUTH For DX- SUPPLEMENT 250 mg calci 12/12 Inactiv e 2023 Once daily By Mouth False Co Q-10 100 mg capsule 100 mg By Mouth Once daily For DX- SUPPLEMENT 100 mg 06/20 Inactiv e 2023 81373 87839 5 Once daily By Mouth False Furosemide 20 mg tablet [generic] 20 mg By Mouth Once daily For DX-CHF 20 mg 12/12 Inactiv e 2023 94730 24680 0 Once daily By Mouth False Gabapentin 300 mg capsule [generic] 300 mg By Mouth 3 times a day For DX- NEUROPATHY 300 mg 12/12 Inactiv e 2023 83594 40777 4 3 times a day By Mouth False Loratadine 10 mg tablet [generic] 10 mg By Mouth Once daily For DX- ALLERGIES 10 mg 2023 Active 2023 25585 66706 1 Once daily By Mouth False Miralax 17 gram/dose oral powder 17 gram/dose By Mouth IN THE MORNING Mix 1 TABLESPOON IN 8 OZ OF FLUID HOLD FOR LOOSE STOOLS For DX- CONSTIPATION 17 gram/do se 12/12 Inactiv e 2023 10634 49203 0 Once daily By Mouth False Paroxetine 30 mg tablet [generic] 30 mg By Mouth Once daily For DX- DEPRESSION 30 mg 2023 00/00 /0000 Active 2023 78933 99563 3 Once daily By Mouth False Potassium citrate ER 15 mEq (1,620 mg) tablet,exte nded release [generic] 15 mEq By Mouth 3 times a day For DX- SUPPLEMENT/DI URETIC USE/ HYPOCITRAUIRA DO NOT CRUSH 15 mEq 12/12 Inactiv e 2023 20962 70126 1 3 times a day By Mouth [...] For DX- DANDRUFF 12/12 Inactiv e 2023 51283 48765 4 3 times a week Topica l False Acetaminoph en 325 mg tablet [generic] TAKE 2 TABS (650MG) BY MOUTH EVERY 4 HOURS NEEDED FOR TEMP >100 NOT TO EXCEED 3GM/24HRS TAKE 2 TABS (650MG) BY MOUTH EVERY 4 HOURS NEEDED FOR TEMP >100 NOT TO EXCEED 3GM/24HRS For DX-FEVER 2 12/12 Inactiv e 2023 12197 17403 0 By Mouth False MILK OF MAGNESIA ADMINISTER 30 ML BY MOUTH ONCE DAILY NEEDED FOR CONSTIPATION X3 DAYS WITH NO BM. For DX- CONSTIPATION 30ML 12/12 Inactiv e 2023 18804 41752 9 By Mouth False Enema Disposable 19 gram-7 gram/118 mL ADMINISTER ONE ENEMA RECTALLY ONCE DAILY NEEDED FOR CONSTIPATION ON DAY 6 OF NO BM For DX- CONSTIPATION 12/12 Inactiv e 2023 04593 11083 1 Rectal False TUMS EXTRA STR 750MG TAKE (1) TABLET BY MOUTH THREE TIMES DAILY NEEDED FOR INDIGESTION For DX- INDIGESTION 1 12/12 Inactiv e 2023 99108 16148 8 By Mouth False Vitamin D3 25 [...] CONSTIPATION 10 mg 12/12 Inactiv e 2023 58828 35793 1 Rectal False Melatonin 3 mg tablet [generic] 3 mg By Mouth As Needed For DX-INSOMMIA 3 mg 12/12 Inactiv e 2023 03301 35050 8 By Mouth False Hydrocortis one 1 % topical cream [generic] 1 % Topical As Needed For DX- PAIN 1 % 12/12 Inactiv e 2023 84386 66720 1 Topica l False HYDROCORTIS ONE/PARMOXI NE [...] 5-10 50 mg 12/20 Inactiv e 2023 97948 49717 0 Every 4 hours as needed By Mouth False Tylenol 325 mg tablet 325 mg By Mouth Every 4 hours as needed For DX- PAIN PRN FOR MILD PAIN, DO NOT EXCEED 3000MG APAP/24 HOURS 325 mg 12/20 Inactiv e 2023 28168 36670 0 Every 4 hours as needed By Mouth False Baclofen 20 mg tablet [generic] 20 mg By Mouth 4 times a day For MUSCLE SPASMS 20 mg 12/20 Inactiv e 2023 29236 84514 1 4 times a day By Mouth False Calcium citrate 250 mg tablet [generic] Once daily TAKE 4 TABLETS (1000MG) BY MOUTH For SUPPLEMENT 1000 MG 06/26 Inactiv e 2023 72260 25693 6 Once daily By Mouth False Dulcolax (bisacodyl) 10 mg rectal suppository 10 mg Rectal Once daily For CONSTIPATION *MAY HOLD FOR LOOSE STOOLS* 10 mg 2023 Active 2023 38083 72399 1 Once daily Rectal False Gabapentin 300 mg capsule [generic] 300 mg By Mouth 3 times a day For NEUROPATHY 300 mg 2023 Active 2023 31450 14391 4 3 times a day By Mouth False Potassium citrate ER 15 mEq (1,620 mg) tablet,exte nded release [generic] 15 mEq By Mouth 3 times a day For SUPPLEMENT/DI URETIC USE/HYPOCITRA URIA 15 mEq 06/11 Inactiv e 2023 62177 32530 1 3 times a day By Mouth False Potassium chloride ER 20 mEq tablet,exte nded release [generic] 20 mEq By Mouth 3 times a day *DO NOT CRUSH, CHEW OR BREAK* For SUPPLEMENT 20 mEq 12/18 Inactiv e 2023 61675 87765 1 3 times a day By Mouth False Tizanidine 4 mg tablet [generic] 4 mg By Mouth Once daily For MUSCLE SPASMS 4 mg 2023 Active 2023 10295 11727 0 Once daily By Mouth False Tylenol 325 mg tablet 2 tabs By Mouth Every 4 hours as needed For Fever >100 DO NOT EXCEED 3000 MG APAP/24 Hours 2 tabs 12/20 Inactiv e 2023 36330 70317 0 Every 4 hours as needed By Mouth False Dulcolax (bisacodyl) 10 mg rectal suppository Daily as needed For Constipation 1 sup 12/20 Inactiv e 2023 74444 54025 1 Daily as needed Rectal False Fleet Enema 19 gram-7 gram/118 mL 1 Rectal Daily as neededFor Constipation 1 12/20 Inactiv e 2023 31996 52536 6 Daily as needed Rectal False Milk of Magnesia 400 mg/5 mL oral suspension [Magnesium hydroxide] PRN 30ml By Mouth Daily as needed for constipation one time daily if no BM, on day 4 of no BM (PRN refer to instructions) For Constipation For Constipatioin 30ml 12/20 Inactiv e 2023 58825 22692 6 1 time By Mouth False Melatonin 3 mg tablet [generic] 3 mg By Mouth Once daily As Needed For INSOMNIA 3 mg 12/20 Inactiv e 2023 27400 09861 8 Once daily By Mouth False Hydrocortis one 1 % topical cream [generic] 1 % Rectal Four times daily as needed For hemorroid pain 1 % 12/20 Inactiv e 2023 66162 90814 1 Four times daily as needed Rectal False X-STGH ANTACID 750MG CHEW TAKE (1) TABLET BY MOUTH THREE TIMES DAILY NEEDED FOR INDIGESTION 12/20 Inactiv e 2023 19169 45962 4 Three times daily as needed Saline Mist 0.65 % nasal spray aerosol 0.65 % Nares Four times daily as needed For DRYNESS 0.65 % 12/20 Inactiv e 2023 63121 07371 8 Four times daily as needed Nares False Vicks Vaporub 4.7 %-1.2 %-2.6 % topical ointment Apply topically to chest Three times daily as needed For CONGESTION 4.7-1.2 -2.6 12/20 Inactiv e 2023 91509 13800 1 Three times daily as needed Topica l False VITAMIN D3 2000U CAP TAKE ONE (1) CAPSULE BY MOUTH DAILY* DO NOT CRUSH, CHEW OR BREAK* For Supplement 1 capsule 12/19 Inactiv e 2023 04317 47243 0 Once daily By Mouth False Potassium chloride ER 20 mEq tablet,exte nded release(par t/cryst) [generic] TAKE (1) TABLET BY MOUTH THREE TIMES DAILY (MORNING, AFTERNOON, EVENING)*DO NOT CRUSH, CHEW, OR BREAK* For SUPPLEMENT 20 MEQ 06/11 Inactiv e 2023 63907 30518 5 3 times a day By Mouth False Aspirin 81 mg tablet,camron yed release [generic] TAKE ONE (1) TABLET BY MOUTH ONCE DAILY*DO NOT CRUSH, CHEW OR BREAK* For CAD 81 MG 12/22 Inactiv e 2023 31709 48280 0 Once daily By Mouth False Furosemide 20 mg tablet [generic] TAKE 1 AND 1/2 TABLETS (30MG) BY MOUTH ONCE DAILY For CHF 30mg 2023 Active 2023 55963 15815 1 Once daily By Mouth False Polyethylen e glycol 3350 17 gram/dose oral powder [generic] MIX 17 GRAMS (1 CAPFUL) IN 60Z OF LIQUID AND DRINK BY MOUTH ONCE DAILY *HOLD FOR LOOSE STOOLS* For constipation 17 g 2023 Active 2023 01777 36692 3 Once daily By Mouth False Vitamin D3 50 mcg (2,000 unit) capsule Once daily TAKE ONE (1) CAPSULE BY MOUTH DAILY* DO NOT CRUSH, CHEW OR BREAK* For Supplement 1 capsule 02/07 Inactiv e 2023 49488 95149 2 Once daily By Mouth False Fleet Enema 19 gram-7 gram/118 mL 1 Rectal Daily as neededFor Constipation 1 2023 0000 Active 2023 40593 24721 6 Daily as needed Rectal False Tums E-X 300 mg (as calcium carbonate 750 mg) chewable tablet 1 tab By Mouth TAKE (1) TABLET BY MOUTH THREE TIMES DAILY NEEDED FOR INDIGESTION 1 tab 202300 /0000 Active 2023 65182 76906 1 Three times daily as needed By Mouth False Tylenol 325 mg tablet 2 tabs By Mouth Every 4 hours as needed For Fever >100 DO NOT EXCEED 3000 MG APAP/24 Hours 2 tabs 202300 /0000 Active 2023 46793 12460 0 Every 4 hours as needed By Mouth False Vicks Vaporub 4.7 %-1.2 %-2.6 % topical ointment Apply topically to chest Three times daily as needed For CONGESTION topical 202300 Active 2023 81831 06723 1 Three times daily as needed Topica l False Tylenol 325 mg tablet 2 tabs By Mouth Every 4 hours as needed For DX- PAIN PRN FOR MILD PAIN, DO NOT EXCEED 3000MG APAP/24 HOURS 2 tabs 202300 Active 2023 90102 11265 0 Every 4 hours as needed By Mouth False Tramadol 50 mg tablet [generic] 1 tab By Mouth Every 4 hours as needed For DX- PAIN 5-10 1 tab 03/10 Inactiv e 2023 97480 12713 0 Every 4 hours as needed By Mouth False Saline Mist 0.65 % nasal spray aerosol 2 sprays Nares Four times daily as needed For DRYNESS 2 sprays 202300 / Active 2023 83884 87947 8 Four times daily as needed Nares False Dulcolax (bisacodyl) 10 mg rectal suppository Daily as needed For Constipation 1 sup 202300 / Active 2023 83641 89207 1 Daily as needed Rectal False Hydrocortis one-pramoxi ne 1 %-1 % rectal cream [generic] 1 mague Rectal Four times daily as needed For hemorroid pain 1 mague 202300 /0000 Active 2023 34481 19873 4 Four times daily as needed Rectal False Melatonin 3 mg tablet [generic] 1 tab By Mouth At bedtime as needed For INSOMNIA 1 tab 12/24 Inactiv e 2023 64036 81287 8 At bedtime as needed By Mouth False Milk of Magnesia 400 mg/5 mL oral suspension 30ml By Mouth Daily as needed Daily as needed for constipation one time daily if no BM, on day 4 of no BM (PRN refer to instructions) For Constipation For Constipatioin 30ml 2023 Active 2023 21731 65651 2 Daily as needed By Mouth False Baclofen 20 mg tablet [generic] 20 mg By Mouth 4 times a day For MUSCLE SPASMS 20 mg 2023 Active 2023 80135 53388 1 4 times a day By Mouth False Melatonin 3 mg tablet [generic] 1 tab By Mouth At bedtime as needed For INSOMNIA 1 tab 2023 Active 2023 94888 10383 8 At bedtime as needed By Mouth False Bactrim DS 800 mg-160 mg tablet 1 tab By Mouth Twice daily For URINARY TRACT INFECTION, SITE NOT SPECIFIED 1 tab 01/06 Inactiv e 2023 21695 46068 1 Twice daily By Mouth N39.0 False Cefdinir 300 mg capsule [generic] 300 mg By Mouth Twice daily For UTI 300 mg 01/07 Inactiv e 2023 51847 43109 0 Twice daily By Mouth False Cefdinir 300 mg capsule [generic] 300 mg By Mouth Twice daily For UTI 300 mg 01/17 Inactiv e 2023 71274 61223 0 Twice daily By Mouth False Zyrtec 10 mg tablet 10 mg By Mouth Once daily For sinus congestion 10 mg 01/22 Inactiv e 2023 66846 20834 0 Once daily By Mouth False Tobramycin 0.3 %-dexametha sone 0.1 % eye drops,suspe nsion [generic] 0.3-0.1 % Left Eye 4 times a day For eye infection 0.3-0.1 % 02/05 Inactiv e 2023 51351 69264 5 4 times a day Left Eye False Fluconazole 150 mg tablet [generic] 150 mg By Mouth 1 time For yeast infection 150 mg 02/15 Inactiv e 2023 21045 57554 2 1 time By Mouth False Tramadol 50 mg tablet [generic] 1 tab By Mouth Every 4 hours as needed For DX- PAIN 5-10 1 tab 2023 00/00 /0000 Active 2023 66448 31863 0 Every 4 hours as needed By Mouth False Tobramycin 0.3 %-dexametha sone 0.1 % eye drops,suspe nsion [generic] 1 drop Left Eye 4 times a day For Inflammation of left eye 1 drop 05/08 Inactiv e 2023 72971 07651 5 4 times a day Left Eye False Voltaren Arthritis Pain 1 % topical gel 2 gm Topical Twice daily to rigth shoulder for 2 weeks For pain 2 gm 05/08 Inactiv e 2023 01707 22114 1 Twice daily Topica l False Chlorthalid one 25 mg tablet [generic] 12.5mg By Mouth Once daily For HTN 12.5mg 05/06 Inactiv e 2023 94135 61199 0 Once daily By Mouth False Chlorthalid one 25 mg tablet [generic] 12.5mg By Mouth Once daily For HTN 12.5mg 05/07 Inactiv e 2023 15234 90668 0 Once daily By Mouth False Chlorthalid one 25 mg tablet [generic] 05/07 Inactiv e 2023 09541 76906 0 Chlorthalid one 25 mg tablet [generic] 12.5mg By Mouth Once daily For HTN 12.5mg 06/26 Inactiv e 2023 17381 01828 0 Once daily By Mouth False Norvasc 5 mg tablet 5mg By Mouth Once daily, hold medication if systolic is less than 90 For HYPERTENSIVE HEART DISEASE WITHOUT HEART FAILURE 5mg 06/03 Inactiv e 2023 25379 62259 1 Once daily By Mouth I11.9 False Norvasc 5 mg tablet 5mg By Mouth Once daily, hold medication if systolic is less than 90 For HYPERTENSIVE HEART DISEASE WITHOUT HEART FAILURE 5mg 06/03 Inactiv e 2023 18654 99451 1 Once daily By Mouth I11.9 False Norvasc 5 mg tablet 5mg By Mouth Once daily, hold medication if systolic is less than 90 For HYPERTENSIVE HEART DISEASE WITHOUT HEART FAILURE 5mg 06/26 Inactiv e 2023 16775 10978 1 Once daily By Mouth I11.9 False [...] 10 mg 2023 00/00 /0000 Active 2023 69112 95559 1 Once daily By Mouth False DISCONTINUE [...] CAD 81 mg 06/14 Inactiv e 2023 95419 24541 9 Once daily By Mouth False Aspirin 81 mg tablet,camron yed release [generic] 06/14 Inactiv e 2023 76931 52155 9 Aspirin 81 mg tablet,camron yed release [generic] 81 mg By Mouth Once daily Do not crush, chew, or break For CAD 81 mg 06/154 Inactiv e 2023 71602 63412 9 Once daily By Mouth False Cefpodoxime 200 mg tablet [generic] 200mg By Mouth Twice daily For UTI 200mg 07/04 Inactiv e 2023 11075 64523 0 Twice daily By Mouth False Calcium citrate 250 mg tablet [generic] 06/26 Inactiv e 2023 10202 79105 6 Calcium citrate 250 mg tablet [generic] Once daily TAKE 4 TABLETS (1000MG) BY MOUTH For SUPPLEMENT 500 MG 2023 Active 2023 54503 36348 6 Once daily By Mouth False Norvasc 5 mg tablet 7.5 mg By Mouth Once daily Hold medication if SBP <90 For HYPERTENSIVE HEART DISEASE WITHOUT HEART FAILURE 7.5 mg 06/30 Inactiv e 2023 13839 06084 1 Once daily By Mouth I11.9 False Norvasc 5 mg tablet 7.5 mg By Mouth Once daily Hold medication if SBP <90 For HYPERTENSIVE HEART DISEASE WITHOUT HEART FAILURE 7.5 mg 07/06 Inactiv e 2023 79835 27465 1 Once daily By Mouth I11.9 False Simethicone 125 mg capsule [generic] 2 capule By Mouth Twice daily as needed For bloating/gas pain 2 capule 2023 Active 2023 58135 19602 0 Twice daily as needed By Mouth False Cepacol Sore Throat (benzocaine -menthol) 15 mg-2.6 mg lozenges 2 lozenges By Mouth Every 6 hours as needed For sore throat 2 lozenge s 2023 Active 2023 64621 98938 6 Every 6 hours as needed By Mouth False Cefepime 1 gram solution for injection [generic] 1g Intramuscular Every 12 hours 1g intramuscular ly ever 12 hours For UTI 1g 07/06 Inactiv e 2023 42108 12668 4 Every 12 hours Intram uscula r False Cefepime 1 gram solution for injection [generic] 07/06 Inactiv e 2023 91584 48620 4 Cefepime 1 gram solution for injection [generic] 1g Intramuscular Every 12 hours 1g intramuscular ly ever 12 hours For UTI Reconstitute with 2.4 ML of NSS. 1g 07/08 Inactiv e 2023 98228 76049 4 Every 12 hours Intram uscula r False Norvasc 5 mg tablet 07/06 Inactiv e 2023 21352 54631 1 I11.9 Norvasc 5 mg tablet 7.5 mg By Mouth Once daily Hold medication if SBP <90 For HYPERTENSIVE HEART DISEASE WITHOUT HEART FAILURE 7.5 mg 2023 000000 Active 2023 98016 59717 1 Once daily By Mouth I11.9 False Cefepime 1 gram solution for injection [generic] 07/08 Inactiv e 2023 64915 86703 4 Cefepime 1 gram solution for injection [generic] 1g Intramuscular Every 12 hours 1g intramuscular ly ever 12 hours For UTI Reconstitute with 2.4 ML of NSS. 1g 07/08 Inactiv e 2023 13153 33799 4 Every 12 hours Intram uscula r False Cefepime 1 gram solution for injection [generic] 07/08 Inactiv e 2023 51729 45711 4 Cefepime 1 gram solution for injection [generic] 1g Intramuscular Every 12 hours 1g intramuscular ly ever 12 hours For UTI Reconstitute with 2.4 ML of NSS. 1g 07/11 Inactiv e 2023 81873 82882 4 Every 12 hours Intram uscula r False Nystatin 100,000 unit/gram topical cream [generic] 100,000 unit Topical As Needed For DX- EXCORIATION 100,000 unit 12/12 Inactiv e 2023 25233 79548 5 Topica l False Vicks Vaporub 4.7 %-1.2 %-2.6 % topical ointment 4.7-1.2-2.6 Topical 3 times a day As Needed For DX- CONGESTION 4.7-1.2 -2.6 12/12 Inactiv e 2023 27098 02383 1 3 times a day Topica l False Ketoconazol e 2 % shampoo [generic] APPLY SHAMPOO TOPICALLY TO SCALP DURING HAIR WASHINGDX: ELVIA DERM OF SCALP For DX- ELVIA DERM OF SCALP 12/12 Inactiv e 2023 34387 26020 4 Topica l False THERA SILICONE SKIN GUARD Topical Twice daily 1 APPLICATION TOPICALLY IN THE MORNING AND AT BEDTIME TO SCROTUM For DX- PREVENTION 202300 Active 2023 Twice daily Topica l False Selenium sulfide 2.5 % lotion [generic] 2.5 % Topical EVERY MONDAY, MONDAY AND MONDAY AFTER SHOWER For DANDRUFF 2.5 % 202300 Active 2023 89100 33969 4 3 times a week Topica l False Nystatin (bulk) 100 million unit powder [generic] 100 million Topical Twice daily as needed For EXOCORATION 100 million 12/20 Inactiv e 2023 08140 12697 1 Twice daily as needed Topica l False Ketoconazol e 2 % shampoo [generic] Once daily APPLY SHAMPOO TOPICALLY TO SCALP DURING HAIR WASHING ON SHOWER DAYS- , , MON For ELVIA DERM OF SCAP 2 % 2023 0000 / Active 2023 96992 28667 4 Once daily Topica l False Nystatin 100,000 unit/gram topical cream [generic] 1 mague Topical Twice daily as needed For EXOCORATION 1 mague 06/05 Inactiv e 2023 20055 34662 5 Twice daily as needed Topica l False Nystatin 100,000 unit/gram topical powder [generic] 100,000 unit Topical Twice daily to scrotum with AM and PM care For Scrotal excoriation 100,000 unit 06/05 Inactiv e 2023 49989 89875 5 Twice daily Topica l False Problems [...] Temperature SpO2 Blood Sugar Pulse Respirations 203 48904 2 259.80 NI 203 43761 5 93.00 mm[Hg] - Sitting 137.00 mm[Hg] - Sitting 204 60551 2 259.40 NI 204 96940 1 78.00 mm[Hg] - Sitting 144.00 mm[Hg] - Sitting 205 80657 4 85.00 mm[Hg] - Sitting 142.00 mm[Hg] - Sitting 206 71902 9 76.00 mm[Hg] - Sitting 132.00 mm[Hg] - Sitting 208 64250 9 82.00 mm[Hg] - Sitting 128.00 mm[Hg] - Sitting 28298 209 54194 2 78.00 mm[Hg] - Sitting 130.00 mm[Hg] - Sitting 04747 210 97009 6 80.00 mm[Hg] - Sitting 132.00 mm[Hg] - Sitting 91731 211 29270 5 78.00 mm[Hg] - Sitting 125.00 mm[Hg] - Sitting 82055 216 92900 1 254.10 NI 66019 216 70081 2 79.00 mm[Hg] - Sitting 157.00 mm[Hg] - Sitting 73 NI 254.10 NI 36.30 Tympanic 95.00 % 72.00/ min 16.00/min 19863 216 91666 4 98.80 Tympanic 39121 216 21375 2 78.00 mm[Hg] - Sitting 164.00 mm[Hg] - Sitting 07342 217 40308 3 98.20 Tympanic 25377 217 39898 5 73.00 mm[Hg] - Sitting 159.00 mm[Hg] - Sitting 00798 217 76238 9 98.40 Forehead Scan 20788 218 72810 3 97.90 Tympanic 62601 218 33955 5 77.00 mm[Hg] - Sitting 137.00 mm[Hg] - Sitting 12553 219 71882 0 97.70 Tympanic 12986 219 21557 6 97.60 Tympanic 21809 219 36727 4 76.00 mm[Hg] - Sitting 139.00 mm[Hg] - Sitting 38357 219 85746 4 97.80 Forehead Scan 15240 220 60328 9 97.90 Tympanic 61874 220 41403 9 76.00 mm[Hg] - Sitting 138.00 mm[Hg] - Sitting 42295 220 78415 6 98.10 Tympanic 47534 221 01361 5 67.00 mm[Hg] - Sitting 142.00 mm[Hg] - Sitting 43844 221 62586 8 98.20 Tympanic 02790 221 32709 0 98.30 Tympanic 99274 222 99124 7 98.20 Tympanic 04568 222 14679 8 97.90 Tympanic 51781 223 68537 3 98.20 Tympanic 79196 223 93456 3 98.00 Tympanic 96055 224 16965 0 59.00 mm[Hg] - Sitting 111.00 mm[Hg] - Sitting 98.40 Forehead Scan 95.00 % 56.00/ min 18.00/min 55454 224 25117 9 98.20 Forehead Scan 87691 224 13050 3 97.90 Tympanic 86631 225 23003 4 98.20 Tympanic 87679 225 81566 8 97.50 Forehead Scan 12785 228 98062 0 55.00 mm[Hg] - Sitting 118.00 mm[Hg] - Sitting 98.40 Tympanic 69.00/ min 28603 229 22521 8 78.00 mm[Hg] - Sitting 152.00 mm[Hg] - Sitting 86757 230 65328 0 62.00 mm[Hg] - Sitting 122.00 mm[Hg] - Sitting 35251 231 68184 7 72.00 mm[Hg] - Lying Down 140.00 mm[Hg] - Lying Down 95236 101 28286 3 97.70 Forehead Scan 17791 101 56027 1 254.10 NI 69.00/ min 12920 101 42681 9 72.00 mm[Hg] - Sitting 142.00 mm[Hg] - Sitting 97.70 Tympanic 18.00/min 40865 101 82990 3 72.00 mm[Hg] - Lying Down 142.00 [...]
--- OUTSIDE RECORDS SUMMARY | 2024-07-26 11:23 | External Medical Summary | Continuity Of Care Document ---
Author Name Unknown Address [address] [place] [address] Organization [facility] () Care Team Providers Care Supervisor [employer] Name Role Phone DO Pritchett Amy Primary Care Provider [phone] Allergies Allergy Reaction Start Date End Date Status AMINOGLYCOSIDES Active CIPRO Active GENTAMICIN Active NSAIDS (NON-STEROIDAL ANTI-INFLAMMATORY DRUG) 0 Active IBUPROFEN Active QUINOLONES Active VALIUM Active Medications Medication Instructions Dosage Start Date End Date Status Order Date Drug Code Frequency Route of Admin Diagnosis Code Substitutions Allowed Spikevax [id number](1 2y up)(PF) 50 mcg/0.5 mL intramuscul ar suspension [COVID [id number](12 up)(andu)(P F)] 0.5mL Intramuscular 1 time Monitory 15 Minutes post injection for adverse effects; record site/temp For COVID 19 PREVENTION 0.5mL 01/02 Inactiv e 2023 01872 09296 4 1 time Intram uscula r False [facility] - Nurse initials indicate verificatio n that [id number] vaccine was administere d by [facility] 1 Intramuscular 1 time ( Indicate vaccine type) For vaccine 1 05/03 Inactiv e 2023 1 time Intram uscula r False Lisinopril 40 mg tablet [generic] TAKE ONE (1) TABLET BY MOUTH IN THE MORNING. For DX- HTN 1 2023 Active 2023 45762 99932 1 Once daily By Mouth False Tizanidine 2 mg tablet [generic] TAKE ONE (1) TABLET BY MOUTH ONCE DAILY For MUSCLE SPASM 1 2023 Active 2023 89866 77692 0 Once daily By Mouth M62.838 False Tamsulosin 0.4 mg capsule [generic] TAKE (1) CAPSULE BY MOUTH AT BEDTIME For SPASMS 1 2023 Active 2023 65064 56832 0 Once daily By Mouth False Aspirin 81 mg tablet Once daily 1 TABLET BY MOUTH IN THE MORNING For DX- CAD DO NOT CRUSH, CHEW OR BREAK 81 mg 06/12 Inactiv e 2023 Once daily By Mouth False Baclofen 20 mg tablet [generic] 20 mg By Mouth 4 times a day For DX- MUSCLE SPASMS 20 mg 12/12 Inactiv e 2023 24864 71176 1 4 times a day By Mouth False Calcium citrate 250 mg tablet Once daily 4 TABLET BY MOUTH For DX- SUPPLEMENT 250 mg calci 12/12 Inactiv e 2023 Once daily By Mouth False Co Q-10 100 mg capsule 100 mg By Mouth Once daily For DX- SUPPLEMENT 100 mg 06/20 Inactiv e 2023 06454 58573 5 Once daily By Mouth False Furosemide 20 mg tablet [generic] 20 mg By Mouth Once daily For DX-CHF 20 mg 12/12 Inactiv e 2023 09223 77665 0 Once daily By Mouth False Gabapentin 300 mg capsule [generic] 300 mg By Mouth 3 times a day For DX- NEUROPATHY 300 mg 12/12 Inactiv e 2023 24871 49196 4 3 times a day By Mouth False Loratadine 10 mg tablet [generic] 10 mg By Mouth Once daily For DX- ALLERGIES 10 mg 2023 Active 2023 35098 77323 1 Once daily By Mouth False Miralax 17 gram/dose oral powder 17 gram/dose By Mouth IN THE MORNING Mix 1 TABLESPOON IN 8 OZ OF FLUID HOLD FOR LOOSE STOOLS For DX- CONSTIPATION 17 gram/do se 12/12 Inactiv e 2023 47768 91134 0 Once daily By Mouth False Paroxetine 30 mg tablet [generic] 30 mg By Mouth Once daily For DX- DEPRESSION 30 mg 2023 00/00 /0000 Active 2023 06338 74583 3 Once daily By Mouth False Potassium citrate ER 15 mEq (1,620 mg) tablet,exte nded release [generic] 15 mEq By Mouth 3 times a day For DX- SUPPLEMENT/DI URETIC USE/ HYPOCITRAUIRA DO NOT CRUSH 15 mEq 12/12 Inactiv e 2023 81059 14831 1 3 times a day By Mouth [...] For DX- DANDRUFF 12/12 Inactiv e 2023 36548 01152 4 3 times a week Topica l False Acetaminoph en 325 mg tablet [generic] TAKE 2 TABS (650MG) BY MOUTH EVERY 4 HOURS NEEDED FOR TEMP >100 NOT TO EXCEED 3GM/24HRS TAKE 2 TABS (650MG) BY MOUTH EVERY 4 HOURS NEEDED FOR TEMP >100 NOT TO EXCEED 3GM/24HRS For DX-FEVER 2 12/12 Inactiv e 2023 73773 66839 0 By Mouth False MILK OF MAGNESIA ADMINISTER 30 ML BY MOUTH ONCE DAILY NEEDED FOR CONSTIPATION X3 DAYS WITH NO BM. For DX- CONSTIPATION 30ML 12/12 Inactiv e 2023 92355 36599 9 By Mouth False Enema Disposable 19 gram-7 gram/118 mL ADMINISTER ONE ENEMA RECTALLY ONCE DAILY NEEDED FOR CONSTIPATION ON DAY 6 OF NO BM For DX- CONSTIPATION 12/12 Inactiv e 2023 38157 02668 1 Rectal False TUMS EXTRA STR 750MG TAKE (1) TABLET BY MOUTH THREE TIMES DAILY NEEDED FOR INDIGESTION For DX- INDIGESTION 1 12/12 Inactiv e 2023 38890 56581 8 By Mouth False Vitamin D3 25 [...] CONSTIPATION 10 mg 12/12 Inactiv e 2023 57856 00011 1 Rectal False Melatonin 3 mg tablet [generic] 3 mg By Mouth As Needed For DX-INSOMMIA 3 mg 12/12 Inactiv e 2023 04583 49627 8 By Mouth False Hydrocortis one 1 % topical cream [generic] 1 % Topical As Needed For DX- PAIN 1 % 12/12 Inactiv e 2023 54853 57687 1 Topica l False HYDROCORTIS ONE/PARMOXI NE [...] 5-10 50 mg 12/20 Inactiv e 2023 86486 73277 0 Every 4 hours as needed By Mouth False Tylenol 325 mg tablet 325 mg By Mouth Every 4 hours as needed For DX- PAIN PRN FOR MILD PAIN, DO NOT EXCEED 3000MG APAP/24 HOURS 325 mg 12/20 Inactiv e 2023 25080 82812 0 Every 4 hours as needed By Mouth False Baclofen 20 mg tablet [generic] 20 mg By Mouth 4 times a day For MUSCLE SPASMS 20 mg 12/20 Inactiv e 2023 34459 93777 1 4 times a day By Mouth False Calcium citrate 250 mg tablet [generic] Once daily TAKE 4 TABLETS (1000MG) BY MOUTH For SUPPLEMENT 1000 MG 06/26 Inactiv e 2023 56999 44022 6 Once daily By Mouth False Dulcolax (bisacodyl) 10 mg rectal suppository 10 mg Rectal Once daily For CONSTIPATION *MAY HOLD FOR LOOSE STOOLS* 10 mg 2023 Active 2023 39096 34201 1 Once daily Rectal False Gabapentin 300 mg capsule [generic] 300 mg By Mouth 3 times a day For NEUROPATHY 300 mg 2023 Active 2023 85531 05774 4 3 times a day By Mouth False Potassium citrate ER 15 mEq (1,620 mg) tablet,exte nded release [generic] 15 mEq By Mouth 3 times a day For SUPPLEMENT/DI URETIC USE/HYPOCITRA URIA 15 mEq 06/11 Inactiv e 2023 79874 56947 1 3 times a day By Mouth False Potassium chloride ER 20 mEq tablet,exte nded release [generic] 20 mEq By Mouth 3 times a day *DO NOT CRUSH, CHEW OR BREAK* For SUPPLEMENT 20 mEq 12/18 Inactiv e 2023 71990 70113 1 3 times a day By Mouth False Tizanidine 4 mg tablet [generic] 4 mg By Mouth Once daily For MUSCLE SPASMS 4 mg 2023 Active 2023 76588 78793 0 Once daily By Mouth False Tylenol 325 mg tablet 2 tabs By Mouth Every 4 hours as needed For Fever >100 DO NOT EXCEED 3000 MG APAP/24 Hours 2 tabs 12/20 Inactiv e 2023 50441 94705 0 Every 4 hours as needed By Mouth False Dulcolax (bisacodyl) 10 mg rectal suppository Daily as needed For Constipation 1 sup 12/20 Inactiv e 2023 97454 44859 1 Daily as needed Rectal False Fleet Enema 19 gram-7 gram/118 mL 1 Rectal Daily as neededFor Constipation 1 12/20 Inactiv e 2023 96629 14626 6 Daily as needed Rectal False Milk of Magnesia 400 mg/5 mL oral suspension [Magnesium hydroxide] PRN 30ml By Mouth Daily as needed for constipation one time daily if no BM, on day 4 of no BM (PRN refer to instructions) For Constipation For Constipatioin 30ml 12/20 Inactiv e 2023 19718 31082 6 1 time By Mouth False Melatonin 3 mg tablet [generic] 3 mg By Mouth Once daily As Needed For INSOMNIA 3 mg 12/20 Inactiv e 2023 69803 65586 8 Once daily By Mouth False Hydrocortis one 1 % topical cream [generic] 1 % Rectal Four times daily as needed For hemorroid pain 1 % 12/20 Inactiv e 2023 37626 93077 1 Four times daily as needed Rectal False X-STGH ANTACID 750MG CHEW TAKE (1) TABLET BY MOUTH THREE TIMES DAILY NEEDED FOR INDIGESTION 12/20 Inactiv e 2023 38406 12688 4 Three times daily as needed Saline Mist 0.65 % nasal spray aerosol 0.65 % Nares Four times daily as needed For DRYNESS 0.65 % 12/20 Inactiv e 2023 73454 92010 8 Four times daily as needed Nares False Vicks Vaporub 4.7 %-1.2 %-2.6 % topical ointment Apply topically to chest Three times daily as needed For CONGESTION 4.7-1.2 -2.6 12/20 Inactiv e 2023 15209 71598 1 Three times daily as needed Topica l False VITAMIN D3 2000U CAP TAKE ONE (1) CAPSULE BY MOUTH DAILY* DO NOT CRUSH, CHEW OR BREAK* For Supplement 1 capsule 12/19 Inactiv e 2023 49877 80948 0 Once daily By Mouth False Potassium chloride ER 20 mEq tablet,exte nded release(par t/cryst) [generic] TAKE (1) TABLET BY MOUTH THREE TIMES DAILY (MORNING, AFTERNOON, EVENING)*DO NOT CRUSH, CHEW, OR BREAK* For SUPPLEMENT 20 MEQ 06/11 Inactiv e 2023 06083 97007 5 3 times a day By Mouth False Aspirin 81 mg tablet,camron yed release [generic] TAKE ONE (1) TABLET BY MOUTH ONCE DAILY*DO NOT CRUSH, CHEW OR BREAK* For CAD 81 MG 12/22 Inactiv e 2023 14590 78049 0 Once daily By Mouth False Furosemide 20 mg tablet [generic] TAKE 1 AND 1/2 TABLETS (30MG) BY MOUTH ONCE DAILY For CHF 30mg 2023 Active 2023 20146 94929 1 Once daily By Mouth False Polyethylen e glycol 3350 17 gram/dose oral powder [generic] MIX 17 GRAMS (1 CAPFUL) IN 60Z OF LIQUID AND DRINK BY MOUTH ONCE DAILY *HOLD FOR LOOSE STOOLS* For constipation 17 g 2023 Active 2023 79946 37533 3 Once daily By Mouth False Vitamin D3 50 mcg (2,000 unit) capsule Once daily TAKE ONE (1) CAPSULE BY MOUTH DAILY* DO NOT CRUSH, CHEW OR BREAK* For Supplement 1 capsule 02/07 Inactiv e 2023 79429 50815 2 Once daily By Mouth False Fleet Enema 19 gram-7 gram/118 mL 1 Rectal Daily as neededFor Constipation 1 2023 0000 Active 2023 01242 63752 6 Daily as needed Rectal False Tums E-X 300 mg (as calcium carbonate 750 mg) chewable tablet 1 tab By Mouth TAKE (1) TABLET BY MOUTH THREE TIMES DAILY NEEDED FOR INDIGESTION 1 tab 202300 /0000 Active 2023 40106 92212 1 Three times daily as needed By Mouth False Tylenol 325 mg tablet 2 tabs By Mouth Every 4 hours as needed For Fever >100 DO NOT EXCEED 3000 MG APAP/24 Hours 2 tabs 202300 /0000 Active 2023 51821 61063 0 Every 4 hours as needed By Mouth False Vicks Vaporub 4.7 %-1.2 %-2.6 % topical ointment Apply topically to chest Three times daily as needed For CONGESTION topical 202300 Active 2023 02171 91693 1 Three times daily as needed Topica l False Tylenol 325 mg tablet 2 tabs By Mouth Every 4 hours as needed For DX- PAIN PRN FOR MILD PAIN, DO NOT EXCEED 3000MG APAP/24 HOURS 2 tabs 202300 Active 2023 39550 17810 0 Every 4 hours as needed By Mouth False Tramadol 50 mg tablet [generic] 1 tab By Mouth Every 4 hours as needed For DX- PAIN 5-10 1 tab 03/10 Inactiv e 2023 81223 07569 0 Every 4 hours as needed By Mouth False Saline Mist 0.65 % nasal spray aerosol 2 sprays Nares Four times daily as needed For DRYNESS 2 sprays 202300 / Active 2023 06743 53126 8 Four times daily as needed Nares False Dulcolax (bisacodyl) 10 mg rectal suppository Daily as needed For Constipation 1 sup 202300 / Active 2023 99832 85383 1 Daily as needed Rectal False Hydrocortis one-pramoxi ne 1 %-1 % rectal cream [generic] 1 mague Rectal Four times daily as needed For hemorroid pain 1 mague 202300 /0000 Active 2023 17432 59895 4 Four times daily as needed Rectal False Melatonin 3 mg tablet [generic] 1 tab By Mouth At bedtime as needed For INSOMNIA 1 tab 12/24 Inactiv e 2023 30174 74745 8 At bedtime as needed By Mouth False Milk of Magnesia 400 mg/5 mL oral suspension 30ml By Mouth Daily as needed Daily as needed for constipation one time daily if no BM, on day 4 of no BM (PRN refer to instructions) For Constipation For Constipatioin 30ml 2023 Active 2023 22559 81718 2 Daily as needed By Mouth False Baclofen 20 mg tablet [generic] 20 mg By Mouth 4 times a day For MUSCLE SPASMS 20 mg 2023 Active 2023 15089 68314 1 4 times a day By Mouth False Melatonin 3 mg tablet [generic] 1 tab By Mouth At bedtime as needed For INSOMNIA 1 tab 2023 Active 2023 03317 22849 8 At bedtime as needed By Mouth False Bactrim DS 800 mg-160 mg tablet 1 tab By Mouth Twice daily For URINARY TRACT INFECTION, SITE NOT SPECIFIED 1 tab 01/06 Inactiv e 2023 00614 63475 1 Twice daily By Mouth N39.0 False Cefdinir 300 mg capsule [generic] 300 mg By Mouth Twice daily For UTI 300 mg 01/07 Inactiv e 2023 71802 92797 0 Twice daily By Mouth False Cefdinir 300 mg capsule [generic] 300 mg By Mouth Twice daily For UTI 300 mg 01/17 Inactiv e 2023 42679 99879 0 Twice daily By Mouth False Zyrtec 10 mg tablet 10 mg By Mouth Once daily For sinus congestion 10 mg 01/22 Inactiv e 2023 17247 99905 0 Once daily By Mouth False Tobramycin 0.3 %-dexametha sone 0.1 % eye drops,suspe nsion [generic] 0.3-0.1 % Left Eye 4 times a day For eye infection 0.3-0.1 % 02/05 Inactiv e 2023 81053 89958 5 4 times a day Left Eye False Fluconazole 150 mg tablet [generic] 150 mg By Mouth 1 time For yeast infection 150 mg 02/15 Inactiv e 2023 63107 09209 2 1 time By Mouth False Tramadol 50 mg tablet [generic] 1 tab By Mouth Every 4 hours as needed For DX- PAIN 5-10 1 tab 2023 00/00 /0000 Active 2023 62808 25767 0 Every 4 hours as needed By Mouth False Tobramycin 0.3 %-dexametha sone 0.1 % eye drops,suspe nsion [generic] 1 drop Left Eye 4 times a day For Inflammation of left eye 1 drop 05/08 Inactiv e 2023 45700 30831 5 4 times a day Left Eye False Voltaren Arthritis Pain 1 % topical gel 2 gm Topical Twice daily to rigth shoulder for 2 weeks For pain 2 gm 05/08 Inactiv e 2023 88708 40815 1 Twice daily Topica l False Chlorthalid one 25 mg tablet [generic] 12.5mg By Mouth Once daily For HTN 12.5mg 05/06 Inactiv e 2023 49864 97339 0 Once daily By Mouth False Chlorthalid one 25 mg tablet [generic] 12.5mg By Mouth Once daily For HTN 12.5mg 05/07 Inactiv e 2023 75843 26395 0 Once daily By Mouth False Chlorthalid one 25 mg tablet [generic] 05/07 Inactiv e 2023 87680 51487 0 Chlorthalid one 25 mg tablet [generic] 12.5mg By Mouth Once daily For HTN 12.5mg 06/26 Inactiv e 2023 78980 52791 0 Once daily By Mouth False Norvasc 5 mg tablet 5mg By Mouth Once daily, hold medication if systolic is less than 90 For HYPERTENSIVE HEART DISEASE WITHOUT HEART FAILURE 5mg 06/03 Inactiv e 2023 26252 05832 1 Once daily By Mouth I11.9 False Norvasc 5 mg tablet 5mg By Mouth Once daily, hold medication if systolic is less than 90 For HYPERTENSIVE HEART DISEASE WITHOUT HEART FAILURE 5mg 06/03 Inactiv e 2023 79200 75230 1 Once daily By Mouth I11.9 False Norvasc 5 mg tablet 5mg By Mouth Once daily, hold medication if systolic is less than 90 For HYPERTENSIVE HEART DISEASE WITHOUT HEART FAILURE 5mg 06/26 Inactiv e 2023 17494 66646 1 Once daily By Mouth I11.9 False [...] 10 mg 2023 00/00 /0000 Active 2023 77558 92710 1 Once daily By Mouth False DISCONTINUE [...] CAD 81 mg 06/14 Inactiv e 2023 46949 53086 9 Once daily By Mouth False Aspirin 81 mg tablet,camron yed release [generic] 06/14 Inactiv e 2023 41776 69021 9 Aspirin 81 mg tablet,camron yed release [generic] 81 mg By Mouth Once daily Do not crush, chew, or break For CAD 81 mg 06/154 Inactiv e 2023 25649 75272 9 Once daily By Mouth False Cefpodoxime 200 mg tablet [generic] 200mg By Mouth Twice daily For UTI 200mg 07/04 Inactiv e 2023 98882 96615 0 Twice daily By Mouth False Calcium citrate 250 mg tablet [generic] 06/26 Inactiv e 2023 37529 06790 6 Calcium citrate 250 mg tablet [generic] Once daily TAKE 4 TABLETS (1000MG) BY MOUTH For SUPPLEMENT 500 MG 2023 Active 2023 58710 79056 6 Once daily By Mouth False Norvasc 5 mg tablet 7.5 mg By Mouth Once daily Hold medication if SBP <90 For HYPERTENSIVE HEART DISEASE WITHOUT HEART FAILURE 7.5 mg 06/30 Inactiv e 2023 19625 05533 1 Once daily By Mouth I11.9 False Norvasc 5 mg tablet 7.5 mg By Mouth Once daily Hold medication if SBP <90 For HYPERTENSIVE HEART DISEASE WITHOUT HEART FAILURE 7.5 mg 07/06 Inactiv e 2023 95456 42696 1 Once daily By Mouth I11.9 False Simethicone 125 mg capsule [generic] 2 capule By Mouth Twice daily as needed For bloating/gas pain 2 capule 2023 Active 2023 29783 30546 0 Twice daily as needed By Mouth False Cepacol Sore Throat (benzocaine -menthol) 15 mg-2.6 mg lozenges 2 lozenges By Mouth Every 6 hours as needed For sore throat 2 lozenge s 2023 Active 2023 72088 63137 6 Every 6 hours as needed By Mouth False Cefepime 1 gram solution for injection [generic] 1g Intramuscular Every 12 hours 1g intramuscular ly ever 12 hours For UTI 1g 07/06 Inactiv e 2023 32162 85075 4 Every 12 hours Intram uscula r False Cefepime 1 gram solution for injection [generic] 07/06 Inactiv e 2023 67102 49373 4 Cefepime 1 gram solution for injection [generic] 1g Intramuscular Every 12 hours 1g intramuscular ly ever 12 hours For UTI Reconstitute with 2.4 ML of NSS. 1g 07/08 Inactiv e 2023 99151 49933 4 Every 12 hours Intram uscula r False Norvasc 5 mg tablet 07/06 Inactiv e 2023 51814 92397 1 I11.9 Norvasc 5 mg tablet 7.5 mg By Mouth Once daily Hold medication if SBP <90 For HYPERTENSIVE HEART DISEASE WITHOUT HEART FAILURE 7.5 mg 2023 000000 Active 2023 12844 26727 1 Once daily By Mouth I11.9 False Cefepime 1 gram solution for injection [generic] 07/08 Inactiv e 2023 35579 66238 4 Cefepime 1 gram solution for injection [generic] 1g Intramuscular Every 12 hours 1g intramuscular ly ever 12 hours For UTI Reconstitute with 2.4 ML of NSS. 1g 07/08 Inactiv e 2023 97904 16316 4 Every 12 hours Intram uscula r False Cefepime 1 gram solution for injection [generic] 07/08 Inactiv e 2023 82884 04156 4 Cefepime 1 gram solution for injection [generic] 1g Intramuscular Every 12 hours 1g intramuscular ly ever 12 hours For UTI Reconstitute with 2.4 ML of NSS. 1g 07/11 Active 2023 76897 02258 4 Every 12 hours Intram uscula r False Nystatin 100,000 unit/gram topical cream [generic] 100,000 unit Topical As Needed For DX- EXCORIATION 100,000 unit 12/12 Inactiv e 2023 60803 40480 5 Topica l False Vicks Vaporub 4.7 %-1.2 %-2.6 % topical ointment 4.7-1.2-2.6 Topical 3 times a day As Needed For DX- CONGESTION 4.7-1.2 -2.6 12/12 Inactiv e 2023 71805 08436 1 3 times a day Topica l False Ketoconazol e 2 % shampoo [generic] APPLY SHAMPOO TOPICALLY TO SCALP DURING HAIR WASHINGDX: ELVIA DERM OF SCALP For DX- ELVIA DERM OF SCALP 12/12 Inactiv e 2023 37499 22491 4 Topica l False THERA SILICONE SKIN GUARD Topical Twice daily 1 APPLICATION TOPICALLY IN THE MORNING AND AT BEDTIME TO SCROTUM For DX- PREVENTION 202300 Active 2023 Twice daily Topica l False Selenium sulfide 2.5 % lotion [generic] 2.5 % Topical EVERY MONDAY, MONDAY AND MONDAY AFTER SHOWER For DANDRUFF 2.5 % 202300 Active 2023 22139 39345 4 3 times a week Topica l False Nystatin (bulk) 100 million unit powder [generic] 100 million Topical Twice daily as needed For EXOCORATION 100 million 12/20 Inactiv e 2023 55932 68327 1 Twice daily as needed Topica l False Ketoconazol e 2 % shampoo [generic] Once daily APPLY SHAMPOO TOPICALLY TO SCALP DURING HAIR WASHING ON SHOWER DAYS- , , MON For ELVIA DERM OF SCAP 2 % 202300 Active 2023 16683 25604 4 Once daily Topica l False Nystatin 100,000 unit/gram topical cream [generic] 1 mague Topical Twice daily as needed For EXOCORATION 1 mague 06/05 Inactiv e 2023 94976 16057 5 Twice daily as needed Topica l False Nystatin 100,000 unit/gram topical powder [generic] 100,000 unit Topical Twice daily to scrotum with AM and PM care For Scrotal excoriation 100,000 unit 06/05 Inactiv e 2023 40483 11764 5 Twice daily Topica l False Problems [...] adjustment of urinary device 07/21/2023 Active Z79.01 shelter (current) use of anticoagulants 07/21 Active N31.9 Neuromuscular dysfun ction of bladder, unspecified 07/21/2023 Active VITAL SIGNS Date Time Diastolic blood pressure Systolic blood pressure Body height Body weight Temperature SpO2 Blood Sugar Pulse Respirations 130 36779 5 78.00 mm[Hg] - Sitting 152.00 mm[Hg] - Sitting 201 73054 1 87.00 mm[Hg] - Sitting 189.00 mm[Hg] - Sitting 202 99895 2 76.00 mm[Hg] - Sitting 136.00 mm[Hg] - Sitting 203 08771 2 259.80 NI 203 07145 5 93.00 mm[Hg] - Sitting 137.00 mm[Hg] - Sitting 204 43262 2 259.40 NI 204 49785 1 78.00 mm[Hg] - Sitting 144.00 mm[Hg] - Sitting 99735 205 62223 4 85.00 mm[Hg] - Sitting 142.00 mm[Hg] - Sitting 02420 206 24639 9 76.00 mm[Hg] - Sitting 132.00 mm[Hg] - Sitting 23690 208 01157 9 82.00 mm[Hg] - Sitting 128.00 mm[Hg] - Sitting 14148 209 39805 2 78.00 mm[Hg] - Sitting 130.00 mm[Hg] - Sitting 09731 210 94772 6 80.00 mm[Hg] - Sitting 132.00 mm[Hg] - Sitting 02413 211 62984 5 78.00 mm[Hg] - Sitting 125.00 mm[Hg] - Sitting 25453 216 38939 1 254.10 NI 45245 216 86134 2 79.00 mm[Hg] - Sitting 157.00 mm[Hg] - Sitting 73 NI 254.10 NI 36.30 Tympanic 95.00 % 72.00/ min 16.00/min 57242 216 58034 4 98.80 Tympanic 56996 216 91863 2 78.00 mm[Hg] - Sitting 164.00 mm[Hg] - Sitting 81515 217 19489 3 98.20 Tympanic 30757 217 44618 5 73.00 mm[Hg] - Sitting 159.00 mm[Hg] - Sitting 78941 217 90442 9 98.40 Forehead Scan 74059 218 79675 3 97.90 Tympanic 49789 218 83991 5 77.00 mm[Hg] - Sitting 137.00 mm[Hg] - Sitting 96292 219 08484 0 97.70 Tympanic 90961 219 13124 6 97.60 Tympanic 22820 219 64195 4 76.00 mm[Hg] - Sitting 139.00 mm[Hg] - Sitting 30111 219 37342 4 97.80 Forehead Scan 95890 220 36749 9 97.90 Tympanic 19655 220 91023 9 76.00 mm[Hg] - Sitting 138.00 mm[Hg] - Sitting 23615 220 28905 6 98.10 Tympanic 29234 221 84332 5 67.00 mm[Hg] - Sitting 142.00 mm[Hg] - Sitting 10951 221 26753 8 98.20 Tympanic 59811 221 11829 0 98.30 Tympanic 11582 222 99631 7 98.20 Tympanic 12603 222 33707 8 97.90 Tympanic 74160 223 28164 3 98.20 Tympanic 34982 223 69617 3 98.00 Tympanic 40607 224 19227 0 59.00 mm[Hg] - Sitting 111.00 mm[Hg] - Sitting 98.40 Forehead Scan 95.00 % 56.00/ min 18.00/min 83170 224 84954 9 98.20 Forehead Scan 19198 224 01824 3 97.90 Tympanic 61930 225 88852 4 98.20 Tympanic 47317 225 54482 8 97.50 Forehead Scan 60746 228 01946 0 55.00 mm[Hg] - Sitting 118.00 mm[Hg] - Sitting 98.40 Tympanic 69.00/ min 39528 229 80500 8 78.00 mm[Hg] - Sitting 152.00 mm[Hg] - Sitting 05947 230 56306 0 62.00 mm[Hg] - Sitting 122.00 mm[Hg] [...]
--- OUTSIDE RECORDS SUMMARY | 2024-07-26 11:23 | External Medical Summary | Continuity Of Care Document ---
Author Name Unknown Address [address] [place] [address] Organization [facility] () Care Team Providers Care Transit Man Name Role Phone DO Pritchett Amy Primary Care Provider [phone] Allergies Allergy Reaction Start Date End Date Status AMINOGLYCOSIDES Active CIPRO Active GENTAMICIN Active NSAIDS (NON-STEROIDAL ANTI-INFLAMMATORY DRUG) 0 Active IBUPROFEN Active QUINOLONES Active VALIUM Active Medications Medication Instructions Dosage Start Date End Date Status Order Date Drug Code Frequency Route of Admin Diagnosis Code Substitutions Allowed Spikevax [id number](1 2y up)(PF) 50 mcg/0.5 mL intramuscul ar suspension [COVID [id number](12 up)(andu)(P F)] 0.5mL Intramuscular 1 time Monitory 15 Minutes post injection for adverse effects; record site/temp For COVID 19 PREVENTION 0.5mL 01/02 Inactiv e 2023 37046 29450 4 1 time Intram uscula r False [facility] - Nurse initials indicate verificatio n that [id number] vaccine was administere d by [facility] 1 Intramuscular 1 time ( Indicate vaccine type) For vaccine 1 05/03 Inactiv e 2023 1 time Intram uscula r False Lisinopril 40 mg tablet [generic] TAKE ONE (1) TABLET BY MOUTH IN THE MORNING. For DX- HTN 1 2023 Active 2023 14436 60792 1 Once daily By Mouth False Tizanidine 2 mg tablet [generic] TAKE ONE (1) TABLET BY MOUTH ONCE DAILY For MUSCLE SPASM 1 2023 Active 2023 34050 88212 0 Once daily By Mouth M62.838 False Tamsulosin 0.4 mg capsule [generic] TAKE (1) CAPSULE BY MOUTH AT BEDTIME For SPASMS 1 2023 Active 2023 84582 38365 0 Once daily By Mouth False Aspirin 81 mg tablet Once daily 1 TABLET BY MOUTH IN THE MORNING For DX- CAD DO NOT CRUSH, CHEW OR BREAK 81 mg 06/12 Inactiv e 2023 Once daily By Mouth False Baclofen 20 mg tablet [generic] 20 mg By Mouth 4 times a day For DX- MUSCLE SPASMS 20 mg 12/12 Inactiv e 2023 36501 67374 1 4 times a day By Mouth False Calcium citrate 250 mg tablet Once daily 4 TABLET BY MOUTH For DX- SUPPLEMENT 250 mg calci 12/12 Inactiv e 2023 Once daily By Mouth False Co Q-10 100 mg capsule 100 mg By Mouth Once daily For DX- SUPPLEMENT 100 mg 06/20 Inactiv e 2023 08502 39723 5 Once daily By Mouth False Furosemide 20 mg tablet [generic] 20 mg By Mouth Once daily For DX-CHF 20 mg 12/12 Inactiv e 2023 16599 66765 0 Once daily By Mouth False Gabapentin 300 mg capsule [generic] 300 mg By Mouth 3 times a day For DX- NEUROPATHY 300 mg 12/12 Inactiv e 2023 86536 81354 4 3 times a day By Mouth False Loratadine 10 mg tablet [generic] 10 mg By Mouth Once daily For DX- ALLERGIES 10 mg 2023 Active 2023 20656 91087 1 Once daily By Mouth False Miralax 17 gram/dose oral powder 17 gram/dose By Mouth IN THE MORNING Mix 1 TABLESPOON IN 8 OZ OF FLUID HOLD FOR LOOSE STOOLS For DX- CONSTIPATION 17 gram/do se 12/12 Inactiv e 2023 53140 07409 0 Once daily By Mouth False Paroxetine 30 mg tablet [generic] 30 mg By Mouth Once daily For DX- DEPRESSION 30 mg 2023 00/00 /0000 Active 2023 60402 83214 3 Once daily By Mouth False Potassium citrate ER 15 mEq (1,620 mg) tablet,exte nded release [generic] 15 mEq By Mouth 3 times a day For DX- SUPPLEMENT/DI URETIC USE/ HYPOCITRAUIRA DO NOT CRUSH 15 mEq 12/12 Inactiv e 2023 54020 84535 1 3 times a day By Mouth [...] For DX- DANDRUFF 12/12 Inactiv e 2023 86446 09028 4 3 times a week Topica l False Acetaminoph en 325 mg tablet [generic] TAKE 2 TABS (650MG) BY MOUTH EVERY 4 HOURS NEEDED FOR TEMP >100 NOT TO EXCEED 3GM/24HRS TAKE 2 TABS (650MG) BY MOUTH EVERY 4 HOURS NEEDED FOR TEMP >100 NOT TO EXCEED 3GM/24HRS For DX-FEVER 2 12/12 Inactiv e 2023 60423 79799 0 By Mouth False MILK OF MAGNESIA ADMINISTER 30 ML BY MOUTH ONCE DAILY NEEDED FOR CONSTIPATION X3 DAYS WITH NO BM. For DX- CONSTIPATION 30ML 12/12 Inactiv e 2023 76617 46024 9 By Mouth False Enema Disposable 19 gram-7 gram/118 mL ADMINISTER ONE ENEMA RECTALLY ONCE DAILY NEEDED FOR CONSTIPATION ON DAY 6 OF NO BM For DX- CONSTIPATION 12/12 Inactiv e 2023 21934 89760 1 Rectal False TUMS EXTRA STR 750MG TAKE (1) TABLET BY MOUTH THREE TIMES DAILY NEEDED FOR INDIGESTION For DX- INDIGESTION 1 12/12 Inactiv e 2023 04341 58178 8 By Mouth False Vitamin D3 25 [...] CONSTIPATION 10 mg 12/12 Inactiv e 2023 44812 09718 1 Rectal False Melatonin 3 mg tablet [generic] 3 mg By Mouth As Needed For DX-INSOMMIA 3 mg 12/12 Inactiv e 2023 34981 39873 8 By Mouth False Hydrocortis one 1 % topical cream [generic] 1 % Topical As Needed For DX- PAIN 1 % 12/12 Inactiv e 2023 09836 26139 1 Topica l False HYDROCORTIS ONE/PARMOXI NE [...] 5-10 50 mg 12/20 Inactiv e 2023 56919 57541 0 Every 4 hours as needed By Mouth False Tylenol 325 mg tablet 325 mg By Mouth Every 4 hours as needed For DX- PAIN PRN FOR MILD PAIN, DO NOT EXCEED 3000MG APAP/24 HOURS 325 mg 12/20 Inactiv e 2023 67902 50049 0 Every 4 hours as needed By Mouth False Baclofen 20 mg tablet [generic] 20 mg By Mouth 4 times a day For MUSCLE SPASMS 20 mg 12/20 Inactiv e 2023 88014 47963 1 4 times a day By Mouth False Calcium citrate 250 mg tablet [generic] Once daily TAKE 4 TABLETS (1000MG) BY MOUTH For SUPPLEMENT 1000 MG 06/26 Inactiv e 2023 39700 87924 6 Once daily By Mouth False Dulcolax (bisacodyl) 10 mg rectal suppository 10 mg Rectal Once daily For CONSTIPATION *MAY HOLD FOR LOOSE STOOLS* 10 mg 2023 Active 2023 13753 55525 1 Once daily Rectal False Gabapentin 300 mg capsule [generic] 300 mg By Mouth 3 times a day For NEUROPATHY 300 mg 2023 Active 2023 70679 54305 4 3 times a day By Mouth False Potassium citrate ER 15 mEq (1,620 mg) tablet,exte nded release [generic] 15 mEq By Mouth 3 times a day For SUPPLEMENT/DI URETIC USE/HYPOCITRA URIA 15 mEq 06/11 Inactiv e 2023 30397 69082 1 3 times a day By Mouth False Potassium chloride ER 20 mEq tablet,exte nded release [generic] 20 mEq By Mouth 3 times a day *DO NOT CRUSH, CHEW OR BREAK* For SUPPLEMENT 20 mEq 12/18 Inactiv e 2023 48167 46139 1 3 times a day By Mouth False Tizanidine 4 mg tablet [generic] 4 mg By Mouth Once daily For MUSCLE SPASMS 4 mg 2023 Active 2023 56070 62223 0 Once daily By Mouth False Tylenol 325 mg tablet 2 tabs By Mouth Every 4 hours as needed For Fever >100 DO NOT EXCEED 3000 MG APAP/24 Hours 2 tabs 12/20 Inactiv e 2023 77172 37071 0 Every 4 hours as needed By Mouth False Dulcolax (bisacodyl) 10 mg rectal suppository Daily as needed For Constipation 1 sup 12/20 Inactiv e 2023 73341 24973 1 Daily as needed Rectal False Fleet Enema 19 gram-7 gram/118 mL 1 Rectal Daily as neededFor Constipation 1 12/20 Inactiv e 2023 18491 64216 6 Daily as needed Rectal False Milk of Magnesia 400 mg/5 mL oral suspension [Magnesium hydroxide] PRN 30ml By Mouth Daily as needed for constipation one time daily if no BM, on day 4 of no BM (PRN refer to instructions) For Constipation For Constipatioin 30ml 12/20 Inactiv e 2023 17363 71113 6 1 time By Mouth False Melatonin 3 mg tablet [generic] 3 mg By Mouth Once daily As Needed For INSOMNIA 3 mg 12/20 Inactiv e 2023 87330 03191 8 Once daily By Mouth False Hydrocortis one 1 % topical cream [generic] 1 % Rectal Four times daily as needed For hemorroid pain 1 % 12/20 Inactiv e 2023 23522 43142 1 Four times daily as needed Rectal False X-STGH ANTACID 750MG CHEW TAKE (1) TABLET BY MOUTH THREE TIMES DAILY NEEDED FOR INDIGESTION 12/20 Inactiv e 2023 69074 22385 4 Three times daily as needed Saline Mist 0.65 % nasal spray aerosol 0.65 % Nares Four times daily as needed For DRYNESS 0.65 % 12/20 Inactiv e 2023 76567 14414 8 Four times daily as needed Nares False Vicks Vaporub 4.7 %-1.2 %-2.6 % topical ointment Apply topically to chest Three times daily as needed For CONGESTION 4.7-1.2 -2.6 12/20 Inactiv e 2023 21144 38034 1 Three times daily as needed Topica l False VITAMIN D3 2000U CAP TAKE ONE (1) CAPSULE BY MOUTH DAILY* DO NOT CRUSH, CHEW OR BREAK* For Supplement 1 capsule 12/19 Inactiv e 2023 05943 42531 0 Once daily By Mouth False Potassium chloride ER 20 mEq tablet,exte nded release(par t/cryst) [generic] TAKE (1) TABLET BY MOUTH THREE TIMES DAILY (MORNING, AFTERNOON, EVENING)*DO NOT CRUSH, CHEW, OR BREAK* For SUPPLEMENT 20 MEQ 06/11 Inactiv e 2023 14512 80368 5 3 times a day By Mouth False Aspirin 81 mg tablet,camron yed release [generic] TAKE ONE (1) TABLET BY MOUTH ONCE DAILY*DO NOT CRUSH, CHEW OR BREAK* For CAD 81 MG 12/22 Inactiv e 2023 78362 28909 0 Once daily By Mouth False Furosemide 20 mg tablet [generic] TAKE 1 AND 1/2 TABLETS (30MG) BY MOUTH ONCE DAILY For CHF 30mg 2023 Active 2023 65978 48568 1 Once daily By Mouth False Polyethylen e glycol 3350 17 gram/dose oral powder [generic] MIX 17 GRAMS (1 CAPFUL) IN 60Z OF LIQUID AND DRINK BY MOUTH ONCE DAILY *HOLD FOR LOOSE STOOLS* For constipation 17 g 2023 Active 2023 73945 40511 3 Once daily By Mouth False Vitamin D3 50 mcg (2,000 unit) capsule Once daily TAKE ONE (1) CAPSULE BY MOUTH DAILY* DO NOT CRUSH, CHEW OR BREAK* For Supplement 1 capsule 02/07 Inactiv e 2023 40434 43938 2 Once daily By Mouth False Fleet Enema 19 gram-7 gram/118 mL 1 Rectal Daily as neededFor Constipation 1 2023 0000 Active 2023 12877 34568 6 Daily as needed Rectal False Tums E-X 300 mg (as calcium carbonate 750 mg) chewable tablet 1 tab By Mouth TAKE (1) TABLET BY MOUTH THREE TIMES DAILY NEEDED FOR INDIGESTION 1 tab 202300 /0000 Active 2023 03097 59083 1 Three times daily as needed By Mouth False Tylenol 325 mg tablet 2 tabs By Mouth Every 4 hours as needed For Fever >100 DO NOT EXCEED 3000 MG APAP/24 Hours 2 tabs 202300 /0000 Active 2023 56324 93669 0 Every 4 hours as needed By Mouth False Vicks Vaporub 4.7 %-1.2 %-2.6 % topical ointment Apply topically to chest Three times daily as needed For CONGESTION topical 202300 Active 2023 05747 90118 1 Three times daily as needed Topica l False Tylenol 325 mg tablet 2 tabs By Mouth Every 4 hours as needed For DX- PAIN PRN FOR MILD PAIN, DO NOT EXCEED 3000MG APAP/24 HOURS 2 tabs 202300 Active 2023 81021 19228 0 Every 4 hours as needed By Mouth False Tramadol 50 mg tablet [generic] 1 tab By Mouth Every 4 hours as needed For DX- PAIN 5-10 1 tab 03/10 Inactiv e 2023 39017 16187 0 Every 4 hours as needed By Mouth False Saline Mist 0.65 % nasal spray aerosol 2 sprays Nares Four times daily as needed For DRYNESS 2 sprays 202300 / Active 2023 68530 44389 8 Four times daily as needed Nares False Dulcolax (bisacodyl) 10 mg rectal suppository Daily as needed For Constipation 1 sup 202300 / Active 2023 18203 49534 1 Daily as needed Rectal False Hydrocortis one-pramoxi ne 1 %-1 % rectal cream [generic] 1 mague Rectal Four times daily as needed For hemorroid pain 1 mague 202300 /0000 Active 2023 70104 37981 4 Four times daily as needed Rectal False Melatonin 3 mg tablet [generic] 1 tab By Mouth At bedtime as needed For INSOMNIA 1 tab 12/24 Inactiv e 2023 83167 95573 8 At bedtime as needed By Mouth False Milk of Magnesia 400 mg/5 mL oral suspension 30ml By Mouth Daily as needed Daily as needed for constipation one time daily if no BM, on day 4 of no BM (PRN refer to instructions) For Constipation For Constipatioin 30ml 2023 Active 2023 26131 72416 2 Daily as needed By Mouth False Baclofen 20 mg tablet [generic] 20 mg By Mouth 4 times a day For MUSCLE SPASMS 20 mg 2023 Active 2023 21316 28551 1 4 times a day By Mouth False Melatonin 3 mg tablet [generic] 1 tab By Mouth At bedtime as needed For INSOMNIA 1 tab 2023 Active 2023 48930 36975 8 At bedtime as needed By Mouth False Bactrim DS 800 mg-160 mg tablet 1 tab By Mouth Twice daily For URINARY TRACT INFECTION, SITE NOT SPECIFIED 1 tab 01/06 Inactiv e 2023 45939 96570 1 Twice daily By Mouth N39.0 False Cefdinir 300 mg capsule [generic] 300 mg By Mouth Twice daily For UTI 300 mg 01/07 Inactiv e 2023 23628 27357 0 Twice daily By Mouth False Cefdinir 300 mg capsule [generic] 300 mg By Mouth Twice daily For UTI 300 mg 01/17 Inactiv e 2023 11032 06644 0 Twice daily By Mouth False Zyrtec 10 mg tablet 10 mg By Mouth Once daily For sinus congestion 10 mg 01/22 Inactiv e 2023 21858 12303 0 Once daily By Mouth False Tobramycin 0.3 %-dexametha sone 0.1 % eye drops,suspe nsion [generic] 0.3-0.1 % Left Eye 4 times a day For eye infection 0.3-0.1 % 02/05 Inactiv e 2023 92748 21466 5 4 times a day Left Eye False Fluconazole 150 mg tablet [generic] 150 mg By Mouth 1 time For yeast infection 150 mg 02/15 Inactiv e 2023 94225 21474 2 1 time By Mouth False Tramadol 50 mg tablet [generic] 1 tab By Mouth Every 4 hours as needed For DX- PAIN 5-10 1 tab 2023 00/00 /0000 Active 2023 73838 28480 0 Every 4 hours as needed By Mouth False Tobramycin 0.3 %-dexametha sone 0.1 % eye drops,suspe nsion [generic] 1 drop Left Eye 4 times a day For Inflammation of left eye 1 drop 05/08 Inactiv e 2023 87016 11868 5 4 times a day Left Eye False Voltaren Arthritis Pain 1 % topical gel 2 gm Topical Twice daily to rigth shoulder for 2 weeks For pain 2 gm 05/08 Inactiv e 2023 38733 70027 1 Twice daily Topica l False Chlorthalid one 25 mg tablet [generic] 12.5mg By Mouth Once daily For HTN 12.5mg 05/06 Inactiv e 2023 40909 71328 0 Once daily By Mouth False Chlorthalid one 25 mg tablet [generic] 12.5mg By Mouth Once daily For HTN 12.5mg 05/07 Inactiv e 2023 05922 08283 0 Once daily By Mouth False Chlorthalid one 25 mg tablet [generic] 05/07 Inactiv e 2023 66824 07022 0 Chlorthalid one 25 mg tablet [generic] 12.5mg By Mouth Once daily For HTN 12.5mg 06/26 Inactiv e 2023 64546 38451 0 Once daily By Mouth False Norvasc 5 mg tablet 5mg By Mouth Once daily, hold medication if systolic is less than 90 For HYPERTENSIVE HEART DISEASE WITHOUT HEART FAILURE 5mg 06/03 Inactiv e 2023 49560 36338 1 Once daily By Mouth I11.9 False Norvasc 5 mg tablet 5mg By Mouth Once daily, hold medication if systolic is less than 90 For HYPERTENSIVE HEART DISEASE WITHOUT HEART FAILURE 5mg 06/03 Inactiv e 2023 94093 56792 1 Once daily By Mouth I11.9 False Norvasc 5 mg tablet 5mg By Mouth Once daily, hold medication if systolic is less than 90 For HYPERTENSIVE HEART DISEASE WITHOUT HEART FAILURE 5mg 06/26 Inactiv e 2023 25168 46046 1 Once daily By Mouth I11.9 False [...] 10 mg 2023 00/00 /0000 Active 2023 22402 05968 1 Once daily By Mouth False DISCONTINUE [...] CAD 81 mg 06/14 Inactiv e 2023 14995 32654 9 Once daily By Mouth False Aspirin 81 mg tablet,camron yed release [generic] 06/14 Inactiv e 2023 16588 55222 9 Aspirin 81 mg tablet,camron yed release [generic] 81 mg By Mouth Once daily Do not crush, chew, or break For CAD 81 mg 06/154 Inactiv e 2023 48850 13329 9 Once daily By Mouth False Cefpodoxime 200 mg tablet [generic] 200mg By Mouth Twice daily For UTI 200mg 07/04 Inactiv e 2023 42448 22593 0 Twice daily By Mouth False Calcium citrate 250 mg tablet [generic] 06/26 Inactiv e 2023 01139 44626 6 Calcium citrate 250 mg tablet [generic] Once daily TAKE 4 TABLETS (1000MG) BY MOUTH For SUPPLEMENT 500 MG 2023 Active 2023 88666 64745 6 Once daily By Mouth False Norvasc 5 mg tablet 7.5 mg By Mouth Once daily Hold medication if SBP <90 For HYPERTENSIVE HEART DISEASE WITHOUT HEART FAILURE 7.5 mg 06/30 Inactiv e 2023 77257 55181 1 Once daily By Mouth I11.9 False Norvasc 5 mg tablet 7.5 mg By Mouth Once daily Hold medication if SBP <90 For HYPERTENSIVE HEART DISEASE WITHOUT HEART FAILURE 7.5 mg 07/06 Inactiv e 2023 13938 29559 1 Once daily By Mouth I11.9 False Simethicone 125 mg capsule [generic] 2 capule By Mouth Twice daily as needed For bloating/gas pain 2 capule 2023 Active 2023 45434 57432 0 Twice daily as needed By Mouth False Cepacol Sore Throat (benzocaine -menthol) 15 mg-2.6 mg lozenges 2 lozenges By Mouth Every 6 hours as needed For sore throat 2 lozenge s 2023 Active 2023 88343 58421 6 Every 6 hours as needed By Mouth False Cefepime 1 gram solution for injection [generic] 1g Intramuscular Every 12 hours 1g intramuscular ly ever 12 hours For UTI 1g 07/06 Inactiv e 2023 78823 89919 4 Every 12 hours Intram uscula r False Cefepime 1 gram solution for injection [generic] 07/06 Inactiv e 2023 75285 74212 4 Cefepime 1 gram solution for injection [generic] 1g Intramuscular Every 12 hours 1g intramuscular ly ever 12 hours For UTI Reconstitute with 2.4 ML of NSS. 1g 2023 Active 2023 83670 97495 4 Every 12 hours Intram uscula r False Norvasc 5 mg tablet 07/06 Inactiv e 2023 79603 15760 1 I11.9 Norvasc 5 mg tablet 7.5 mg By Mouth Once daily Hold medication if SBP <90 For HYPERTENSIVE HEART DISEASE WITHOUT HEART FAILURE 7.5 mg 2023 Active 2023 56317 86400 1 Once daily By Mouth I11.9 False Nystatin 100,000 unit/gram topical cream [generic] 100,000 unit Topical As Needed For DX- EXCORIATION 100,000 unit 12/12 Inactiv e 2023 98234 89216 5 Topica l False Vicks Vaporub 4.7 %-1.2 %-2.6 % topical ointment 4.7-1.2-2.6 Topical 3 times a day As Needed For DX- CONGESTION 4.7-1.2 -2.6 12/12 Inactiv e 2023 62828 84576 1 3 times a day Topica l False Ketoconazol e 2 % shampoo [generic] APPLY SHAMPOO TOPICALLY TO SCALP DURING HAIR WASHINGDX: ELVIA DERM OF SCALP For DX- ELVIA DERM OF SCALP 12/12 Inactiv e 2023 53321 35900 4 Topica l False THERA SILICONE SKIN GUARD Topical Twice daily 1 APPLICATION TOPICALLY IN THE MORNING AND AT BEDTIME TO SCROTUM For DX- PREVENTION 2023 Active 2023 Twice daily Topica l False Selenium sulfide 2.5 % lotion [generic] 2.5 % Topical EVERY MONDAY, MONDAY AND MONDAY AFTER SHOWER For DANDRUFF 2.5 % 2023 Active 2023 08171 54275 4 3 times a week Topica l False Nystatin (bulk) 100 million unit powder [generic] 100 million Topical Twice daily as needed For EXOCORATION 100 million 12/20 Inactiv e 2023 92019 47855 1 Twice daily as needed Topica l False Ketoconazol e 2 % shampoo [generic] Once daily APPLY SHAMPOO TOPICALLY TO SCALP DURING HAIR WASHING ON SHOWER DAYS- LITTLE SAHA, SAT For ELVIA DERM OF SCAP 2 % 2023 Active 2023 53401 25934 4 Once daily Topica l False Nystatin 100,000 unit/gram topical cream [generic] 1 mague Topical Twice daily as needed For EXOCORATION 1 mague 06/05 Inactiv e 2023 07153 37543 5 Twice daily as needed Topica l False Nystatin 100,000 unit/gram topical powder [generic] 100,000 unit Topical Twice daily to scrotum with AM and PM care For Scrotal excoriation 100,000 unit 06/05 Inactiv e 2023 99226 75011 5 Twice daily Topica l False Problems [...] weight Temperature SpO2 Blood Sugar Pulse Respirations 36460 130 13115 5 78.00 mm[Hg] - Sitting 152.00 mm[Hg] - Sitting 201 07167 1 87.00 mm[Hg] - Sitting 189.00 mm[Hg] - Sitting 202 84310 2 76.00 mm[Hg] - Sitting 136.00 mm[Hg] - Sitting 203 57767 2 259.80 NI 203 84080 5 93.00 mm[Hg] - Sitting 137.00 mm[Hg] - Sitting 204 43589 2 259.40 NI 69334 204 36666 1 78.00 mm[Hg] - Sitting 144.00 mm[Hg] - Sitting 205 79756 4 85.00 mm[Hg] - Sitting 142.00 mm[Hg] - Sitting 206 35041 9 76.00 mm[Hg] - Sitting 132.00 mm[Hg] - Sitting 208 53369 9 82.00 mm[Hg] - Sitting 128.00 mm[Hg] - Sitting 209 26167 2 78.00 mm[Hg] - Sitting 130.00 mm[Hg] - Sitting 210 78318 6 80.00 mm[Hg] - Sitting 132.00 mm[Hg] - Sitting 211 06761 5 78.00 mm[Hg] - Sitting 125.00 mm[Hg] - Sitting 86830 216 38903 1 254.10 NI 76900 216 58149 2 79.00 mm[Hg] - Sitting 157.00 mm[Hg] - Sitting 73 NI 254.10 NI 36.30 Tympanic 95.00 % 72.00/ min 16.00/min 38500 216 05328 4 98.80 Tympanic 29521 216 42646 2 78.00 mm[Hg] - Sitting 164.00 mm[Hg] - Sitting 54288 217 54752 3 98.20 Tympanic 40732 217 73283 5 73.00 mm[Hg] - Sitting 159.00 mm[Hg] - Sitting 73430 217 32096 9 98.40 Forehead Scan 50022 218 77589 3 97.90 Tympanic 39637 218 37171 5 77.00 mm[Hg] - Sitting 137.00 mm[Hg] - Sitting 08796 219 00217 0 97.70 Tympanic 46729 219 30151 6 97.60 Tympanic 77912 219 08704 4 76.00 mm[Hg] - Sitting 139.00 mm[Hg] - Sitting 40584 219 02494 4 97.80 Forehead Scan 28340 220 43952 9 97.90 Tympanic 26429 220 65884 9 76.00 mm[Hg] - Sitting 138.00 mm[Hg] - Sitting 77333 220 57194 6 98.10 Tympanic 86695 221 99242 5 67.00 mm[Hg] - Sitting 142.00 mm[Hg] - Sitting 04975 221 65321 8 98.20 Tympanic 40270 221 59589 0 98.30 Tympanic 54687 222 28618 7 98.20 Tympanic 25876 222 20115 8 97.90 Tympanic 81359 223 28561 3 98.20 Tympanic 70971 223 54026 3 98.00 Tympanic 89917 224 28701 0 59.00 mm[Hg] - Sitting 111.00 mm[Hg] - Sitting 98.40 Forehead Scan 95.00 % 56.00/ min 18.00/min 98362 224 46183 9 98.20 Forehead Scan 32636 224 92654 3 97.90 Tympanic 73636 225 06653 4 98.20 Tympanic 11369 225 85517 8 97.50 Forehead Scan 32882 228 52792 0 55.00 mm[Hg] - Sitting 118.00 mm[Hg] - Sitting 98.40 Tympanic 69.00/ min 98463 229 14557 8 78.00 mm[Hg] - Sitting 152.00 mm[Hg] - Sitting Immunizations Vaccine Date Status [...]
--- OUTSIDE RECORDS SUMMARY | 2024-07-26 11:23 | External Medical Summary | Continuity Of Care Document ---
Author Name Unknown Address [address] [address] Organization [facility] () Care Team Providers Care Supervisor Stripping Name Role Phone DO Pritchett Amy Primary Care Provider [phone] Allergies Allergy Reaction Start Date End Date Status AMINOGLYCOSIDES Active CIPRO Active GENTAMICIN Active NSAIDS (NON-STEROIDAL ANTI-INFLAMMATORY DRUG) 0 Active IBUPROFEN Active QUINOLONES Active VALIUM Active Medications Medication Instructions Dosage Start Date End Date Status Order Date Drug Code Frequency Route of Admin Diagnosis Code Substitutions Allowed Spikevax 8218-7422(1 2y up)(PF) 50 mcg/0.5 mL intramuscul ar suspension [COVID [id number](12 up)(andu)(P F)] 0.5mL Intramuscular 1 time Monitory 15 Minutes post injection for adverse effects; record site/temp For COVID 19 PREVENTION 0.5mL 01/02 Inactiv e 2023 78378 94943 4 1 time Intram uscula r False [facility] - Nurse initials indicate verificatio n that [id number] vaccine was administere d by [facility] Represent[facility] jon 1 Intramuscular 1 time ( Indicate vaccine type) For vaccine 1 05/03 Inactiv e 2023 1 time Intram uscula r False Lisinopril 40 mg tablet [generic] TAKE ONE (1) TABLET BY MOUTH IN THE MORNING. For DX- HTN 1 2023 Active 2023 73663 24908 1 Once daily By Mouth False Tizanidine 2 mg tablet [generic] TAKE ONE (1) TABLET BY MOUTH ONCE DAILY For MUSCLE SPASM 1 2023 Active 2023 83987 95192 0 Once daily By Mouth M62.838 False Tamsulosin 0.4 mg capsule [generic] TAKE (1) CAPSULE BY MOUTH AT BEDTIME For SPASMS 1 2023 Active 2023 29403 00621 0 Once daily By Mouth False Aspirin 81 mg tablet Once daily 1 TABLET BY MOUTH IN THE MORNING For DX- CAD DO NOT CRUSH, CHEW OR BREAK 81 mg 06/12 Inactiv e 2023 Once daily By Mouth False Baclofen 20 mg tablet [generic] 20 mg By Mouth 4 times a day For DX- MUSCLE SPASMS 20 mg 12/12 Inactiv e 2023 53087 60848 1 4 times a day By Mouth False Calcium citrate 250 mg tablet Once daily 4 TABLET BY MOUTH For DX- SUPPLEMENT 250 mg calci 12/12 Inactiv e 2023 Once daily By Mouth False Co Q-10 100 mg capsule 100 mg By Mouth Once daily For DX- SUPPLEMENT 100 mg 06/20 Inactiv e 2023 15560 71501 5 Once daily By Mouth False Furosemide 20 mg tablet [generic] 20 mg By Mouth Once daily For DX-CHF 20 mg 12/12 Inactiv e 2023 06784 05788 0 Once daily By Mouth False Gabapentin 300 mg capsule [generic] 300 mg By Mouth 3 times a day For DX- NEUROPATHY 300 mg 12/12 Inactiv e 2023 84606 11140 4 3 times a day By Mouth False Loratadine 10 mg tablet [generic] 10 mg By Mouth Once daily For DX- ALLERGIES 10 mg 2023 Active 2023 48450 95027 1 Once daily By Mouth False Miralax 17 gram/dose oral powder 17 gram/dose By Mouth IN THE MORNING Mix 1 TABLESPOON IN 8 OZ OF FLUID HOLD FOR LOOSE STOOLS For DX- CONSTIPATION 17 gram/do se 12/12 Inactiv e 2023 09307 42054 0 Once daily By Mouth False Paroxetine 30 mg tablet [generic] 30 mg By Mouth Once daily For DX- DEPRESSION 30 mg 2023 00/00 /0000 Active 2023 22302 51664 3 Once daily By Mouth False Potassium citrate ER 15 mEq (1,620 mg) tablet,exte nded release [generic] 15 mEq By Mouth 3 times a day For DX- SUPPLEMENT/DI URETIC USE/ HYPOCITRAUIRA DO NOT CRUSH 15 mEq 12/12 Inactiv e 2023 71421 42482 1 3 times a day By Mouth [...] For DX- DANDRUFF 12/12 Inactiv e 2023 94021 89098 4 3 times a week Topica l False Acetaminoph en 325 mg tablet [generic] TAKE 2 TABS (650MG) BY MOUTH EVERY 4 HOURS NEEDED FOR TEMP >100 NOT TO EXCEED 3GM/24HRS TAKE 2 TABS (650MG) BY MOUTH EVERY 4 HOURS NEEDED FOR TEMP >100 NOT TO EXCEED 3GM/24HRS For DX-FEVER 2 12/12 Inactiv e 2023 14591 33884 0 By Mouth False MILK OF MAGNESIA ADMINISTER 30 ML BY MOUTH ONCE DAILY NEEDED FOR CONSTIPATION X3 DAYS WITH NO BM. For DX- CONSTIPATION 30ML 12/12 Inactiv e 2023 16728 48148 9 By Mouth False Enema Disposable 19 gram-7 gram/118 mL ADMINISTER ONE ENEMA RECTALLY ONCE DAILY NEEDED FOR CONSTIPATION ON DAY 6 OF NO BM For DX- CONSTIPATION 12/12 Inactiv e 2023 39113 06954 1 Rectal False TUMS EXTRA STR 750MG TAKE (1) TABLET BY MOUTH THREE TIMES DAILY NEEDED FOR INDIGESTION For DX- INDIGESTION 1 12/12 Inactiv e 2023 57595 97736 8 By Mouth False Vitamin D3 25 [...] CONSTIPATION 10 mg 12/12 Inactiv e 2023 68086 34019 1 Rectal False Melatonin 3 mg tablet [generic] 3 mg By Mouth As Needed For DX-INSOMMIA 3 mg 12/12 Inactiv e 2023 92820 81473 8 By Mouth False Hydrocortis one 1 % topical cream [generic] 1 % Topical As Needed For DX- PAIN 1 % 12/12 Inactiv e 2023 61661 94159 1 Topica l False HYDROCORTIS ONE/PARMOXI NE [...] 5-10 50 mg 12/20 Inactiv e 2023 82403 65053 0 Every 4 hours as needed By Mouth False Tylenol 325 mg tablet 325 mg By Mouth Every 4 hours as needed For DX- PAIN PRN FOR MILD PAIN, DO NOT EXCEED 3000MG APAP/24 HOURS 325 mg 12/20 Inactiv e 2023 78533 70908 0 Every 4 hours as needed By Mouth False Baclofen 20 mg tablet [generic] 20 mg By Mouth 4 times a day For MUSCLE SPASMS 20 mg 12/20 Inactiv e 2023 96112 72680 1 4 times a day By Mouth False Calcium citrate 250 mg tablet [generic] Once daily TAKE 4 TABLETS (1000MG) BY MOUTH For SUPPLEMENT 1000 MG 06/26 Inactiv e 2023 32890 24864 6 Once daily By Mouth False Dulcolax (bisacodyl) 10 mg rectal suppository 10 mg Rectal Once daily For CONSTIPATION *MAY HOLD FOR LOOSE STOOLS* 10 mg 2023 Active 2023 09533 28933 1 Once daily Rectal False Gabapentin 300 mg capsule [generic] 300 mg By Mouth 3 times a day For NEUROPATHY 300 mg 2023 Active 2023 34355 24542 4 3 times a day By Mouth False Potassium citrate ER 15 mEq (1,620 mg) tablet,exte nded release [generic] 15 mEq By Mouth 3 times a day For SUPPLEMENT/DI URETIC USE/HYPOCITRA URIA 15 mEq 06/11 Inactiv e 2023 21461 48525 1 3 times a day By Mouth False Potassium chloride ER 20 mEq tablet,exte nded release [generic] 20 mEq By Mouth 3 times a day *DO NOT CRUSH, CHEW OR BREAK* For SUPPLEMENT 20 mEq 12/18 Inactiv e 2023 27563 97929 1 3 times a day By Mouth False Tizanidine 4 mg tablet [generic] 4 mg By Mouth Once daily For MUSCLE SPASMS 4 mg 2023 Active 2023 24169 84200 0 Once daily By Mouth False Tylenol 325 mg tablet 2 tabs By Mouth Every 4 hours as needed For Fever >100 DO NOT EXCEED 3000 MG APAP/24 Hours 2 tabs 12/20 Inactiv e 2023 83673 01575 0 Every 4 hours as needed By Mouth False Dulcolax (bisacodyl) 10 mg rectal suppository Daily as needed For Constipation 1 sup 12/20 Inactiv e 2023 63721 36914 1 Daily as needed Rectal False Fleet Enema 19 gram-7 gram/118 mL 1 Rectal Daily as neededFor Constipation 1 12/20 Inactiv e 2023 70809 11481 6 Daily as needed Rectal False Milk of Magnesia 400 mg/5 mL oral suspension [Magnesium hydroxide] PRN 30ml By Mouth Daily as needed for constipation one time daily if no BM, on day 4 of no BM (PRN refer to instructions) For Constipation For Constipatioin 30ml 12/20 Inactiv e 2023 72513 72049 6 1 time By Mouth False Melatonin 3 mg tablet [generic] 3 mg By Mouth Once daily As Needed For INSOMNIA 3 mg 12/20 Inactiv e 2023 17413 95140 8 Once daily By Mouth False Hydrocortis one 1 % topical cream [generic] 1 % Rectal Four times daily as needed For hemorroid pain 1 % 12/20 Inactiv e 2023 06467 75095 1 Four times daily as needed Rectal False X-STGH ANTACID 750MG CHEW TAKE (1) TABLET BY MOUTH THREE TIMES DAILY NEEDED FOR INDIGESTION 12/20 Inactiv e 2023 91904 63639 4 Three times daily as needed Saline Mist 0.65 % nasal spray aerosol 0.65 % Nares Four times daily as needed For DRYNESS 0.65 % 12/20 Inactiv e 2023 36154 72574 8 Four times daily as needed Nares False Vicks Vaporub 4.7 %-1.2 %-2.6 % topical ointment Apply topically to chest Three times daily as needed For CONGESTION 4.7-1.2 -2.6 12/20 Inactiv e 2023 47110 13971 1 Three times daily as needed Topica l False VITAMIN D3 2000U CAP TAKE ONE (1) CAPSULE BY MOUTH DAILY* DO NOT CRUSH, CHEW OR BREAK* For Supplement 1 capsule 12/19 Inactiv e 2023 30294 44780 0 Once daily By Mouth False Potassium chloride ER 20 mEq tablet,exte nded release(par t/cryst) [generic] TAKE (1) TABLET BY MOUTH THREE TIMES DAILY (MORNING, AFTERNOON, EVENING)*DO NOT CRUSH, CHEW, OR BREAK* For SUPPLEMENT 20 MEQ 06/11 Inactiv e 2023 20507 17676 5 3 times a day By Mouth False Aspirin 81 mg tablet,camron yed release [generic] TAKE ONE (1) TABLET BY MOUTH ONCE DAILY*DO NOT CRUSH, CHEW OR BREAK* For CAD 81 MG 12/22 Inactiv e 2023 57130 17176 0 Once daily By Mouth False Furosemide 20 mg tablet [generic] TAKE 1 AND 1/2 TABLETS (30MG) BY MOUTH ONCE DAILY For CHF 30mg 2023 Active 2023 61540 77451 1 Once daily By Mouth False Polyethylen e glycol 3350 17 gram/dose oral powder [generic] MIX 17 GRAMS (1 CAPFUL) IN 60Z OF LIQUID AND DRINK BY MOUTH ONCE DAILY *HOLD FOR LOOSE STOOLS* For constipation 17 g 2023 Active 2023 18576 30617 3 Once daily By Mouth False Vitamin D3 50 mcg (2,000 unit) capsule Once daily TAKE ONE (1) CAPSULE BY MOUTH DAILY* DO NOT CRUSH, CHEW OR BREAK* For Supplement 1 capsule 02/07 Inactiv e 2023 87499 11782 2 Once daily By Mouth False Fleet Enema 19 gram-7 gram/118 mL 1 Rectal Daily as neededFor Constipation 1 2023 0000 Active 2023 08400 29889 6 Daily as needed Rectal False Tums E-X 300 mg (as calcium carbonate 750 mg) chewable tablet 1 tab By Mouth TAKE (1) TABLET BY MOUTH THREE TIMES DAILY NEEDED FOR INDIGESTION 1 tab 202300 /0000 Active 2023 23144 77736 1 Three times daily as needed By Mouth False Tylenol 325 mg tablet 2 tabs By Mouth Every 4 hours as needed For Fever >100 DO NOT EXCEED 3000 MG APAP/24 Hours 2 tabs 202300 /0000 Active 2023 25278 08095 0 Every 4 hours as needed By Mouth False Vicks Vaporub 4.7 %-1.2 %-2.6 % topical ointment Apply topically to chest Three times daily as needed For CONGESTION topical 202300 Active 2023 73829 51994 1 Three times daily as needed Topica l False Tylenol 325 mg tablet 2 tabs By Mouth Every 4 hours as needed For DX- PAIN PRN FOR MILD PAIN, DO NOT EXCEED 3000MG APAP/24 HOURS 2 tabs 202300 Active 2023 86314 99796 0 Every 4 hours as needed By Mouth False Tramadol 50 mg tablet [generic] 1 tab By Mouth Every 4 hours as needed For DX- PAIN 5-10 1 tab 03/10 Inactiv e 2023 90563 80457 0 Every 4 hours as needed By Mouth False Saline Mist 0.65 % nasal spray aerosol 2 sprays Nares Four times daily as needed For DRYNESS 2 sprays 202300 / Active 2023 04146 63037 8 Four times daily as needed Nares False Dulcolax (bisacodyl) 10 mg rectal suppository Daily as needed For Constipation 1 sup 202300 / Active 2023 89948 49092 1 Daily as needed Rectal False Hydrocortis one-pramoxi ne 1 %-1 % rectal cream [generic] 1 mague Rectal Four times daily as needed For hemorroid pain 1 mague 202300 /0000 Active 2023 17582 12070 4 Four times daily as needed Rectal False Melatonin 3 mg tablet [generic] 1 tab By Mouth At bedtime as needed For INSOMNIA 1 tab 12/24 Inactiv e 2023 43052 42804 8 At bedtime as needed By Mouth False Milk of Magnesia 400 mg/5 mL oral suspension 30ml By Mouth Daily as needed Daily as needed for constipation one time daily if no BM, on day 4 of no BM (PRN refer to instructions) For Constipation For Constipatioin 30ml 2023 Active 2023 41862 24107 2 Daily as needed By Mouth False Baclofen 20 mg tablet [generic] 20 mg By Mouth 4 times a day For MUSCLE SPASMS 20 mg 2023 Active 2023 76600 08262 1 4 times a day By Mouth False Melatonin 3 mg tablet [generic] 1 tab By Mouth At bedtime as needed For INSOMNIA 1 tab 2023 Active 2023 35504 20804 8 At bedtime as needed By Mouth False Bactrim DS 800 mg-160 mg tablet 1 tab By Mouth Twice daily For URINARY TRACT INFECTION, SITE NOT SPECIFIED 1 tab 01/06 Inactiv e 2023 89487 20406 1 Twice daily By Mouth N39.0 False Cefdinir 300 mg capsule [generic] 300 mg By Mouth Twice daily For UTI 300 mg 01/07 Inactiv e 2023 13991 03148 0 Twice daily By Mouth False Cefdinir 300 mg capsule [generic] 300 mg By Mouth Twice daily For UTI 300 mg 01/17 Inactiv e 2023 36990 24229 0 Twice daily By Mouth False Zyrtec 10 mg tablet 10 mg By Mouth Once daily For sinus congestion 10 mg 01/22 Inactiv e 2023 44682 23047 0 Once daily By Mouth False Tobramycin 0.3 %-dexametha sone 0.1 % eye drops,suspe nsion [generic] 0.3-0.1 % Left Eye 4 times a day For eye infection 0.3-0.1 % 02/05 Inactiv e 2023 74524 62503 5 4 times a day Left Eye False Fluconazole 150 mg tablet [generic] 150 mg By Mouth 1 time For yeast infection 150 mg 02/15 Inactiv e 2023 45067 21271 2 1 time By Mouth False Tramadol 50 mg tablet [generic] 1 tab By Mouth Every 4 hours as needed For DX- PAIN 5-10 1 tab 2023 00/00 /0000 Active 2023 88432 43082 0 Every 4 hours as needed By Mouth False Tobramycin 0.3 %-dexametha sone 0.1 % eye drops,suspe nsion [generic] 1 drop Left Eye 4 times a day For Inflammation of left eye 1 drop 05/08 Inactiv e 2023 50392 60029 5 4 times a day Left Eye False Voltaren Arthritis Pain 1 % topical gel 2 gm Topical Twice daily to rigth shoulder for 2 weeks For pain 2 gm 05/08 Inactiv e 2023 93425 79682 1 Twice daily Topica l False Chlorthalid one 25 mg tablet [generic] 12.5mg By Mouth Once daily For HTN 12.5mg 05/06 Inactiv e 2023 91272 82865 0 Once daily By Mouth False Chlorthalid one 25 mg tablet [generic] 12.5mg By Mouth Once daily For HTN 12.5mg 05/07 Inactiv e 2023 27689 75623 0 Once daily By Mouth False Chlorthalid one 25 mg tablet [generic] 05/07 Inactiv e 2023 07317 13355 0 Chlorthalid one 25 mg tablet [generic] 12.5mg By Mouth Once daily For HTN 12.5mg 06/26 Inactiv e 2023 19869 98054 0 Once daily By Mouth False Norvasc 5 mg tablet 5mg By Mouth Once daily, hold medication if systolic is less than 90 For HYPERTENSIVE HEART DISEASE WITHOUT HEART FAILURE 5mg 06/03 Inactiv e 2023 68902 80069 1 Once daily By Mouth I11.9 False Norvasc 5 mg tablet 5mg By Mouth Once daily, hold medication if systolic is less than 90 For HYPERTENSIVE HEART DISEASE WITHOUT HEART FAILURE 5mg 06/03 Inactiv e 2023 72723 87156 1 Once daily By Mouth I11.9 False Norvasc 5 mg tablet 5mg By Mouth Once daily, hold medication if systolic is less than 90 For HYPERTENSIVE HEART DISEASE WITHOUT HEART FAILURE 5mg 06/26 Inactiv e 2023 68731 31681 1 Once daily By Mouth I11.9 False [...] 10 mg 2023 00/00 /0000 Active 2023 83363 77427 1 Once daily By Mouth False DISCONTINUE [...] CAD 81 mg 06/14 Inactiv e 2023 36062 84547 9 Once daily By Mouth False Aspirin 81 mg tablet,camron yed release [generic] 06/14 Inactiv e 2023 60297 79997 9 Aspirin 81 mg tablet,camron yed release [generic] 81 mg By Mouth Once daily Do not crush, chew, or break For CAD 81 mg 06/154 Inactiv e 2023 53110 64806 9 Once daily By Mouth False Cefpodoxime 200 mg tablet [generic] 200mg By Mouth Twice daily For UTI 200mg 07/04 Inactiv e 2023 13000 65535 0 Twice daily By Mouth False Calcium citrate 250 mg tablet [generic] 06/26 Inactiv e 2023 88335 12363 6 Calcium citrate 250 mg tablet [generic] Once daily TAKE 4 TABLETS (1000MG) BY MOUTH For SUPPLEMENT 500 MG 2023 Active 2023 14430 47821 6 Once daily By Mouth False Norvasc 5 mg tablet 7.5 mg By Mouth Once daily Hold medication if SBP <90 For HYPERTENSIVE HEART DISEASE WITHOUT HEART FAILURE 7.5 mg 06/30 Inactiv e 2023 20285 10394 1 Once daily By Mouth I11.9 False Norvasc 5 mg tablet 7.5 mg By Mouth Once daily Hold medication if SBP <90 For HYPERTENSIVE HEART DISEASE WITHOUT HEART FAILURE 7.5 mg 07/06 Inactiv e 2023 91777 30097 1 Once daily By Mouth I11.9 False Simethicone 125 mg capsule [generic] 2 capule By Mouth Twice daily as needed For bloating/gas pain 2 capule 2023 Active 2023 87519 88268 0 Twice daily as needed By Mouth False Cepacol Sore Throat (benzocaine -menthol) 15 mg-2.6 mg lozenges 2 lozenges By Mouth Every 6 hours as needed For sore throat 2 lozenge s 2023 Active 2023 71697 87913 6 Every 6 hours as needed By Mouth False Cefepime 1 gram solution for injection [generic] 1g Intramuscular Every 12 hours 1g intramuscular ly ever 12 hours For UTI 1g 07/06 Inactiv e 2023 10693 26026 4 Every 12 hours Intram uscula r False Cefepime 1 gram solution for injection [generic] 07/06 Inactiv e 2023 03207 05782 4 Cefepime 1 gram solution for injection [generic] 1g Intramuscular Every 12 hours 1g intramuscular ly ever 12 hours For UTI Reconstitute with 2.4 ML of NSS. 1g 07/08 Inactiv e 2023 52985 68205 4 Every 12 hours Intram uscula r False Norvasc 5 mg tablet 07/06 Inactiv e 2023 41226 62665 1 I11.9 Norvasc 5 mg tablet 7.5 mg By Mouth Once daily Hold medication if SBP <90 For HYPERTENSIVE HEART DISEASE WITHOUT HEART FAILURE 7.5 mg 2023 000000 Active 2023 25532 66009 1 Once daily By Mouth I11.9 False Cefepime 1 gram solution for injection [generic] 07/08 Inactiv e 2023 83647 13184 4 Cefepime 1 gram solution for injection [generic] 1g Intramuscular Every 12 hours 1g intramuscular ly ever 12 hours For UTI Reconstitute with 2.4 ML of NSS. 1g 07/08 Inactiv e 2023 30019 18009 4 Every 12 hours Intram uscula r False Cefepime 1 gram solution for injection [generic] 07/08 Inactiv e 2023 74659 83279 4 Cefepime 1 gram solution for injection [generic] 1g Intramuscular Every 12 hours 1g intramuscular ly ever 12 hours For UTI Reconstitute with 2.4 ML of NSS. 1g 07/11 Active 2023 04430 51061 4 Every 12 hours Intram uscula r False Nystatin 100,000 unit/gram topical cream [generic] 100,000 unit Topical As Needed For DX- EXCORIATION 100,000 unit 12/12 Inactiv e 2023 79532 37538 5 Topica l False Vicks Vaporub 4.7 %-1.2 %-2.6 % topical ointment 4.7-1.2-2.6 Topical 3 times a day As Needed For DX- CONGESTION 4.7-1.2 -2.6 12/12 Inactiv e 2023 71761 52950 1 3 times a day Topica l False Ketoconazol e 2 % shampoo [generic] APPLY SHAMPOO TOPICALLY TO SCALP DURING HAIR WASHINGDX: ELVIA DERM OF SCALP For DX- ELVIA DERM OF SCALP 12/12 Inactiv e 2023 51074 62942 4 Topica l False THERA SILICONE SKIN GUARD Topical Twice daily 1 APPLICATION TOPICALLY IN THE MORNING AND AT BEDTIME TO SCROTUM For DX- PREVENTION 202300 Active 2023 Twice daily Topica l False Selenium sulfide 2.5 % lotion [generic] 2.5 % Topical EVERY MONDAY, MONDAY AND MONDAY AFTER SHOWER For DANDRUFF 2.5 % 202300 Active 2023 44965 98926 4 3 times a week Topica l False Nystatin (bulk) 100 million unit powder [generic] 100 million Topical Twice daily as needed For EXOCORATION 100 million 12/20 Inactiv e 2023 42627 27840 1 Twice daily as needed Topica l False Ketoconazol e 2 % shampoo [generic] Once daily APPLY SHAMPOO TOPICALLY TO SCALP DURING HAIR WASHING ON SHOWER DAYS- , , MON For ELVIA DERM OF SCAP 2 % 202300 Active 2023 34870 25105 4 Once daily Topica l False Nystatin 100,000 unit/gram topical cream [generic] 1 mague Topical Twice daily as needed For EXOCORATION 1 mague 06/05 Inactiv e 2023 68130 34308 5 Twice daily as needed Topica l False Nystatin 100,000 unit/gram topical powder [generic] 100,000 unit Topical Twice daily to scrotum with AM and PM care For Scrotal excoriation 100,000 unit 06/05 Inactiv e 2023 60763 23083 5 Twice daily Topica l False Problems [...] - Sitting 136.00 mm[Hg] - Sitting 203 02548 2 259.80 NI 203 99434 5 93.00 mm[Hg] - Sitting 137.00 mm[Hg] - Sitting 204 67362 2 259.40 NI 204 18788 1 78.00 mm[Hg] - Sitting 144.00 mm[Hg] - Sitting 205 72188 4 85.00 mm[Hg] - Sitting 142.00 mm[Hg] - Sitting 206 56782 9 76.00 mm[Hg] - Sitting 132.00 mm[Hg] - Sitting 29621 208 80746 9 82.00 mm[Hg] - Sitting 128.00 mm[Hg] - Sitting 61742 209 92741 2 78.00 mm[Hg] - Sitting 130.00 mm[Hg] - Sitting 62212 210 73446 6 80.00 mm[Hg] - Sitting 132.00 mm[Hg] - Sitting 87036 211 78280 5 78.00 mm[Hg] - Sitting 125.00 mm[Hg] - Sitting 47789 216 19031 1 254.10 NI 77777 216 06462 2 79.00 mm[Hg] - Sitting 157.00 mm[Hg] - Sitting 73 NI 254.10 NI 36.30 Tympanic 95.00 % 72.00/ min 16.00/min 91546 216 19990 4 98.80 Tympanic 84557 216 50599 2 78.00 mm[Hg] - Sitting 164.00 mm[Hg] - Sitting 41701 217 56283 3 98.20 Tympanic 29005 217 20133 5 73.00 mm[Hg] - Sitting 159.00 mm[Hg] - Sitting 17583 217 20030 9 98.40 Forehead Scan 46003 218 97757 3 97.90 Tympanic 65459 218 19660 5 77.00 mm[Hg] - Sitting 137.00 mm[Hg] - Sitting 25956 219 20132 0 97.70 Tympanic 74368 219 99072 6 97.60 Tympanic 23272 219 03797 4 76.00 mm[Hg] - Sitting 139.00 mm[Hg] - Sitting 56218 219 98293 4 97.80 Forehead Scan 85027 220 14248 9 97.90 Tympanic 30614 220 34414 9 76.00 mm[Hg] - Sitting 138.00 mm[Hg] - Sitting 28384 220 15005 6 98.10 Tympanic 21496 221 33948 5 67.00 mm[Hg] - Sitting 142.00 mm[Hg] - Sitting 65385 221 31291 8 98.20 Tympanic 50875 221 79873 0 98.30 Tympanic 60852 222 87223 7 98.20 Tympanic 84589 222 20783 8 97.90 Tympanic 21555 223 77262 3 98.20 Tympanic 41405 223 26859 3 98.00 Tympanic 90559 224 43624 0 59.00 mm[Hg] - Sitting 111.00 mm[Hg] - Sitting 98.40 Forehead Scan 95.00 % 56.00/ min 18.00/min 71010 224 30443 9 98.20 Forehead Scan 84789 224 25237 3 97.90 Tympanic 75098 225 86365 4 98.20 Tympanic 65222 225 00467 8 97.50 Forehead Scan 16112 228 63517 0 55.00 mm[Hg] - Sitting 118.00 mm[Hg] - Sitting 98.40 Tympanic 69.00/ min 68678 229 57913 8 78.00 mm[Hg] - Sitting 152.00 mm[Hg] - Sitting 16826 230 52448 0 62.00 mm[Hg] - Sitting 122.00 mm[Hg] - Sitting 69007 231 30497 7 72.00 mm[Hg] - Lying Down 140.00 mm[Hg] - Lying Down 12530 101 78581 3 72.00 mm[Hg] - Lying Down 142.00 [...]
--- OUTSIDE RECORDS SUMMARY | 2024-07-26 11:24 | External Medical Summary | Continuity Of Care Document ---
Author Name Unknown Address [address] [place] [address] Organization [facility] () Care Team Providers Care Chief Investment Officer Name Role Phone DO Pritchett Amy Primary Care Provider [phone] Allergies Allergy Reaction Start Date End Date Status AMINOGLYCOSIDES Active CIPRO Active GENTAMICIN Active NSAIDS (NON-STEROIDAL ANTI-INFLAMMATORY DRUG) 0 Active IBUPROFEN Active QUINOLONES Active VALIUM Active Medications Medication Instructions Dosage Start Date End Date Status Order Date Drug Code Frequency Route of Admin Diagnosis Code Substitutions Allowed Spikevax [id number](1 2y up)(PF) 50 mcg/0.5 mL intramuscul ar suspension [COVID [id number](12 up)(andu)(P F)] 0.5mL Intramuscular 1 time Monitory 15 Minutes post injection for adverse effects; record site/temp For COVID 19 PREVENTION 0.5mL 01/02 Inactiv e 2023 21298 44886 4 1 time Intram uscula r False [facility] - Nurse initials indicate verificatio n that [id number] vaccine was administere d by [facility] jon 1 Intramuscular 1 time ( Indicate vaccine type) For vaccine 1 05/03 Inactiv e 2023 1 time Intram uscula r False Lisinopril 40 mg tablet [generic] TAKE ONE (1) TABLET BY MOUTH IN THE MORNING. For DX- HTN 1 2023 Active 2023 01466 87382 1 Once daily By Mouth False Tizanidine 2 mg tablet [generic] TAKE ONE (1) TABLET BY MOUTH ONCE DAILY For MUSCLE SPASM 1 2023 Active 2023 16863 99846 0 Once daily By Mouth M62.838 False Tamsulosin 0.4 mg capsule [generic] TAKE (1) CAPSULE BY MOUTH AT BEDTIME For SPASMS 1 2023 Active 2023 88906 19116 0 Once daily By Mouth False Aspirin 81 mg tablet Once daily 1 TABLET BY MOUTH IN THE MORNING For DX- CAD DO NOT CRUSH, CHEW OR BREAK 81 mg 06/12 Inactiv e 2023 Once daily By Mouth False Baclofen 20 mg tablet [generic] 20 mg By Mouth 4 times a day For DX- MUSCLE SPASMS 20 mg 12/12 Inactiv e 2023 17698 99304 1 4 times a day By Mouth False Calcium citrate 250 mg tablet Once daily 4 TABLET BY MOUTH For DX- SUPPLEMENT 250 mg calci 12/12 Inactiv e 2023 Once daily By Mouth False Co Q-10 100 mg capsule 100 mg By Mouth Once daily For DX- SUPPLEMENT 100 mg 06/20 Inactiv e 2023 22836 43737 5 Once daily By Mouth False Furosemide 20 mg tablet [generic] 20 mg By Mouth Once daily For DX-CHF 20 mg 12/12 Inactiv e 2023 11222 14276 0 Once daily By Mouth False Gabapentin 300 mg capsule [generic] 300 mg By Mouth 3 times a day For DX- NEUROPATHY 300 mg 12/12 Inactiv e 2023 13875 30397 4 3 times a day By Mouth False Loratadine 10 mg tablet [generic] 10 mg By Mouth Once daily For DX- ALLERGIES 10 mg 2023 Active 2023 48768 02474 1 Once daily By Mouth False Miralax 17 gram/dose oral powder 17 gram/dose By Mouth IN THE MORNING Mix 1 TABLESPOON IN 8 OZ OF FLUID HOLD FOR LOOSE STOOLS For DX- CONSTIPATION 17 gram/do se 12/12 Inactiv e 2023 17664 93019 0 Once daily By Mouth False Paroxetine 30 mg tablet [generic] 30 mg By Mouth Once daily For DX- DEPRESSION 30 mg 2023 00/00 /0000 Active 2023 60178 52644 3 Once daily By Mouth False Potassium citrate ER 15 mEq (1,620 mg) tablet,exte nded release [generic] 15 mEq By Mouth 3 times a day For DX- SUPPLEMENT/DI URETIC USE/ HYPOCITRAUIRA DO NOT CRUSH 15 mEq 12/12 Inactiv e 2023 56094 99904 1 3 times a day By Mouth [...] For DX- DANDRUFF 12/12 Inactiv e 2023 19827 63038 4 3 times a week Topica l False Acetaminoph en 325 mg tablet [generic] TAKE 2 TABS (650MG) BY MOUTH EVERY 4 HOURS NEEDED FOR TEMP >100 NOT TO EXCEED 3GM/24HRS TAKE 2 TABS (650MG) BY MOUTH EVERY 4 HOURS NEEDED FOR TEMP >100 NOT TO EXCEED 3GM/24HRS For DX-FEVER 2 12/12 Inactiv e 2023 05186 19959 0 By Mouth False MILK OF MAGNESIA ADMINISTER 30 ML BY MOUTH ONCE DAILY NEEDED FOR CONSTIPATION X3 DAYS WITH NO BM. For DX- CONSTIPATION 30ML 12/12 Inactiv e 2023 58534 98528 9 By Mouth False Enema Disposable 19 gram-7 gram/118 mL ADMINISTER ONE ENEMA RECTALLY ONCE DAILY NEEDED FOR CONSTIPATION ON DAY 6 OF NO BM For DX- CONSTIPATION 12/12 Inactiv e 2023 68230 76690 1 Rectal False TUMS EXTRA STR 750MG TAKE (1) TABLET BY MOUTH THREE TIMES DAILY NEEDED FOR INDIGESTION For DX- INDIGESTION 1 12/12 Inactiv e 2023 82813 71109 8 By Mouth False Vitamin D3 25 [...] CONSTIPATION 10 mg 12/12 Inactiv e 2023 60668 41329 1 Rectal False Melatonin 3 mg tablet [generic] 3 mg By Mouth As Needed For DX-INSOMMIA 3 mg 12/12 Inactiv e 2023 44087 70518 8 By Mouth False Hydrocortis one 1 % topical cream [generic] 1 % Topical As Needed For DX- PAIN 1 % 12/12 Inactiv e 2023 96689 69443 1 Topica l False HYDROCORTIS ONE/PARMOXI NE [...] 5-10 50 mg 12/20 Inactiv e 2023 49131 99447 0 Every 4 hours as needed By Mouth False Tylenol 325 mg tablet 325 mg By Mouth Every 4 hours as needed For DX- PAIN PRN FOR MILD PAIN, DO NOT EXCEED 3000MG APAP/24 HOURS 325 mg 12/20 Inactiv e 2023 19125 41896 0 Every 4 hours as needed By Mouth False Baclofen 20 mg tablet [generic] 20 mg By Mouth 4 times a day For MUSCLE SPASMS 20 mg 12/20 Inactiv e 2023 40742 74384 1 4 times a day By Mouth False Calcium citrate 250 mg tablet [generic] Once daily TAKE 4 TABLETS (1000MG) BY MOUTH For SUPPLEMENT 1000 MG 06/26 Inactiv e 2023 66295 85178 6 Once daily By Mouth False Dulcolax (bisacodyl) 10 mg rectal suppository 10 mg Rectal Once daily For CONSTIPATION *MAY HOLD FOR LOOSE STOOLS* 10 mg 2023 Active 2023 01530 97374 1 Once daily Rectal False Gabapentin 300 mg capsule [generic] 300 mg By Mouth 3 times a day For NEUROPATHY 300 mg 2023 Active 2023 68272 62561 4 3 times a day By Mouth False Potassium citrate ER 15 mEq (1,620 mg) tablet,exte nded release [generic] 15 mEq By Mouth 3 times a day For SUPPLEMENT/DI URETIC USE/HYPOCITRA URIA 15 mEq 06/11 Inactiv e 2023 74145 77844 1 3 times a day By Mouth False Potassium chloride ER 20 mEq tablet,exte nded release [generic] 20 mEq By Mouth 3 times a day *DO NOT CRUSH, CHEW OR BREAK* For SUPPLEMENT 20 mEq 12/18 Inactiv e 2023 77167 35889 1 3 times a day By Mouth False Tizanidine 4 mg tablet [generic] 4 mg By Mouth Once daily For MUSCLE SPASMS 4 mg 2023 Active 2023 60712 56718 0 Once daily By Mouth False Tylenol 325 mg tablet 2 tabs By Mouth Every 4 hours as needed For Fever >100 DO NOT EXCEED 3000 MG APAP/24 Hours 2 tabs 12/20 Inactiv e 2023 70360 61862 0 Every 4 hours as needed By Mouth False Dulcolax (bisacodyl) 10 mg rectal suppository Daily as needed For Constipation 1 sup 12/20 Inactiv e 2023 08004 78710 1 Daily as needed Rectal False Fleet Enema 19 gram-7 gram/118 mL 1 Rectal Daily as neededFor Constipation 1 12/20 Inactiv e 2023 35727 90093 6 Daily as needed Rectal False Milk of Magnesia 400 mg/5 mL oral suspension [Magnesium hydroxide] PRN 30ml By Mouth Daily as needed for constipation one time daily if no BM, on day 4 of no BM (PRN refer to instructions) For Constipation For Constipatioin 30ml 12/20 Inactiv e 2023 22153 65704 6 1 time By Mouth False Melatonin 3 mg tablet [generic] 3 mg By Mouth Once daily As Needed For INSOMNIA 3 mg 12/20 Inactiv e 2023 83750 44201 8 Once daily By Mouth False Hydrocortis one 1 % topical cream [generic] 1 % Rectal Four times daily as needed For hemorroid pain 1 % 12/20 Inactiv e 2023 87083 73835 1 Four times daily as needed Rectal False X-STGH ANTACID 750MG CHEW TAKE (1) TABLET BY MOUTH THREE TIMES DAILY NEEDED FOR INDIGESTION 12/20 Inactiv e 2023 54193 15413 4 Three times daily as needed Saline Mist 0.65 % nasal spray aerosol 0.65 % Nares Four times daily as needed For DRYNESS 0.65 % 12/20 Inactiv e 2023 51347 53711 8 Four times daily as needed Nares False Vicks Vaporub 4.7 %-1.2 %-2.6 % topical ointment Apply topically to chest Three times daily as needed For CONGESTION 4.7-1.2 -2.6 12/20 Inactiv e 2023 61332 79386 1 Three times daily as needed Topica l False VITAMIN D3 2000U CAP TAKE ONE (1) CAPSULE BY MOUTH DAILY* DO NOT CRUSH, CHEW OR BREAK* For Supplement 1 capsule 12/19 Inactiv e 2023 92104 11595 0 Once daily By Mouth False Potassium chloride ER 20 mEq tablet,exte nded release(par t/cryst) [generic] TAKE (1) TABLET BY MOUTH THREE TIMES DAILY (MORNING, AFTERNOON, EVENING)*DO NOT CRUSH, CHEW, OR BREAK* For SUPPLEMENT 20 MEQ 06/11 Inactiv e 2023 72908 35365 5 3 times a day By Mouth False Aspirin 81 mg tablet,camron yed release [generic] TAKE ONE (1) TABLET BY MOUTH ONCE DAILY*DO NOT CRUSH, CHEW OR BREAK* For CAD 81 MG 12/22 Inactiv e 2023 21726 14169 0 Once daily By Mouth False Furosemide 20 mg tablet [generic] TAKE 1 AND 1/2 TABLETS (30MG) BY MOUTH ONCE DAILY For CHF 30mg 2023 Active 2023 65043 06792 1 Once daily By Mouth False Polyethylen e glycol 3350 17 gram/dose oral powder [generic] MIX 17 GRAMS (1 CAPFUL) IN 60Z OF LIQUID AND DRINK BY MOUTH ONCE DAILY *HOLD FOR LOOSE STOOLS* For constipation 17 g 2023 Active 2023 44916 11455 3 Once daily By Mouth False Vitamin D3 50 mcg (2,000 unit) capsule Once daily TAKE ONE (1) CAPSULE BY MOUTH DAILY* DO NOT CRUSH, CHEW OR BREAK* For Supplement 1 capsule 02/07 Inactiv e 2023 85866 22471 2 Once daily By Mouth False Fleet Enema 19 gram-7 gram/118 mL 1 Rectal Daily as neededFor Constipation 1 2023 0000 Active 2023 36324 40834 6 Daily as needed Rectal False Tums E-X 300 mg (as calcium carbonate 750 mg) chewable tablet 1 tab By Mouth TAKE (1) TABLET BY MOUTH THREE TIMES DAILY NEEDED FOR INDIGESTION 1 tab 202300 /0000 Active 2023 76726 99977 1 Three times daily as needed By Mouth False Tylenol 325 mg tablet 2 tabs By Mouth Every 4 hours as needed For Fever >100 DO NOT EXCEED 3000 MG APAP/24 Hours 2 tabs 202300 /0000 Active 2023 04494 32225 0 Every 4 hours as needed By Mouth False Vicks Vaporub 4.7 %-1.2 %-2.6 % topical ointment Apply topically to chest Three times daily as needed For CONGESTION topical 202300 Active 2023 33512 81892 1 Three times daily as needed Topica l False Tylenol 325 mg tablet 2 tabs By Mouth Every 4 hours as needed For DX- PAIN PRN FOR MILD PAIN, DO NOT EXCEED 3000MG APAP/24 HOURS 2 tabs 202300 Active 2023 63632 73328 0 Every 4 hours as needed By Mouth False Tramadol 50 mg tablet [generic] 1 tab By Mouth Every 4 hours as needed For DX- PAIN 5-10 1 tab 03/10 Inactiv e 2023 79865 12325 0 Every 4 hours as needed By Mouth False Saline Mist 0.65 % nasal spray aerosol 2 sprays Nares Four times daily as needed For DRYNESS 2 sprays 202300 / Active 2023 04495 43409 8 Four times daily as needed Nares False Dulcolax (bisacodyl) 10 mg rectal suppository Daily as needed For Constipation 1 sup 202300 / Active 2023 07525 07185 1 Daily as needed Rectal False Hydrocortis one-pramoxi ne 1 %-1 % rectal cream [generic] 1 mague Rectal Four times daily as needed For hemorroid pain 1 mague 202300 /0000 Active 2023 99241 09988 4 Four times daily as needed Rectal False Melatonin 3 mg tablet [generic] 1 tab By Mouth At bedtime as needed For INSOMNIA 1 tab 12/24 Inactiv e 2023 20236 06934 8 At bedtime as needed By Mouth False Milk of Magnesia 400 mg/5 mL oral suspension 30ml By Mouth Daily as needed Daily as needed for constipation one time daily if no BM, on day 4 of no BM (PRN refer to instructions) For Constipation For Constipatioin 30ml 2023 Active 2023 32924 81058 2 Daily as needed By Mouth False Baclofen 20 mg tablet [generic] 20 mg By Mouth 4 times a day For MUSCLE SPASMS 20 mg 2023 Active 2023 59791 89264 1 4 times a day By Mouth False Melatonin 3 mg tablet [generic] 1 tab By Mouth At bedtime as needed For INSOMNIA 1 tab 2023 Active 2023 15660 36004 8 At bedtime as needed By Mouth False Bactrim DS 800 mg-160 mg tablet 1 tab By Mouth Twice daily For URINARY TRACT INFECTION, SITE NOT SPECIFIED 1 tab 01/06 Inactiv e 2023 05705 32807 1 Twice daily By Mouth N39.0 False Cefdinir 300 mg capsule [generic] 300 mg By Mouth Twice daily For UTI 300 mg 01/07 Inactiv e 2023 34588 63871 0 Twice daily By Mouth False Cefdinir 300 mg capsule [generic] 300 mg By Mouth Twice daily For UTI 300 mg 01/17 Inactiv e 2023 66969 18284 0 Twice daily By Mouth False Zyrtec 10 mg tablet 10 mg By Mouth Once daily For sinus congestion 10 mg 01/22 Inactiv e 2023 52775 81544 0 Once daily By Mouth False Tobramycin 0.3 %-dexametha sone 0.1 % eye drops,suspe nsion [generic] 0.3-0.1 % Left Eye 4 times a day For eye infection 0.3-0.1 % 02/05 Inactiv e 2023 92506 32222 5 4 times a day Left Eye False Fluconazole 150 mg tablet [generic] 150 mg By Mouth 1 time For yeast infection 150 mg 02/15 Inactiv e 2023 33542 40271 2 1 time By Mouth False Tramadol 50 mg tablet [generic] 1 tab By Mouth Every 4 hours as needed For DX- PAIN 5-10 1 tab 2023 00/00 /0000 Active 2023 49289 73561 0 Every 4 hours as needed By Mouth False Tobramycin 0.3 %-dexametha sone 0.1 % eye drops,suspe nsion [generic] 1 drop Left Eye 4 times a day For Inflammation of left eye 1 drop 05/08 Inactiv e 2023 63238 04351 5 4 times a day Left Eye False Voltaren Arthritis Pain 1 % topical gel 2 gm Topical Twice daily to rigth shoulder for 2 weeks For pain 2 gm 05/08 Inactiv e 2023 78380 53401 1 Twice daily Topica l False Chlorthalid one 25 mg tablet [generic] 12.5mg By Mouth Once daily For HTN 12.5mg 05/06 Inactiv e 2023 30305 83977 0 Once daily By Mouth False Chlorthalid one 25 mg tablet [generic] 12.5mg By Mouth Once daily For HTN 12.5mg 05/07 Inactiv e 2023 06908 56923 0 Once daily By Mouth False Chlorthalid one 25 mg tablet [generic] 05/07 Inactiv e 2023 48142 96513 0 Chlorthalid one 25 mg tablet [generic] 12.5mg By Mouth Once daily For HTN 12.5mg 06/26 Inactiv e 2023 85179 03439 0 Once daily By Mouth False Norvasc 5 mg tablet 5mg By Mouth Once daily, hold medication if systolic is less than 90 For HYPERTENSIVE HEART DISEASE WITHOUT HEART FAILURE 5mg 06/03 Inactiv e 2023 81720 75839 1 Once daily By Mouth I11.9 False Norvasc 5 mg tablet 5mg By Mouth Once daily, hold medication if systolic is less than 90 For HYPERTENSIVE HEART DISEASE WITHOUT HEART FAILURE 5mg 06/03 Inactiv e 2023 32709 63710 1 Once daily By Mouth I11.9 False Norvasc 5 mg tablet 5mg By Mouth Once daily, hold medication if systolic is less than 90 For HYPERTENSIVE HEART DISEASE WITHOUT HEART FAILURE 5mg 06/26 Inactiv e 2023 67268 21690 1 Once daily By Mouth I11.9 False [...] 10 mg 2023 00/00 /0000 Active 2023 54703 80266 1 Once daily By Mouth False DISCONTINUE [...] CAD 81 mg 06/14 Inactiv e 2023 02040 92428 9 Once daily By Mouth False Aspirin 81 mg tablet,camron yed release [generic] 06/14 Inactiv e 2023 85918 69262 9 Aspirin 81 mg tablet,camron yed release [generic] 81 mg By Mouth Once daily Do not crush, chew, or break For CAD 81 mg 06/154 Inactiv e 2023 08929 65107 9 Once daily By Mouth False Cefpodoxime 200 mg tablet [generic] 200mg By Mouth Twice daily For UTI 200mg 07/04 Inactiv e 2023 27421 41029 0 Twice daily By Mouth False Calcium citrate 250 mg tablet [generic] 06/26 Inactiv e 2023 47180 42114 6 Calcium citrate 250 mg tablet [generic] Once daily TAKE 4 TABLETS (1000MG) BY MOUTH For SUPPLEMENT 500 MG 2023 Active 2023 80434 04350 6 Once daily By Mouth False Norvasc 5 mg tablet 7.5 mg By Mouth Once daily Hold medication if SBP <90 For HYPERTENSIVE HEART DISEASE WITHOUT HEART FAILURE 7.5 mg 06/30 Inactiv e 2023 38186 07975 1 Once daily By Mouth I11.9 False Norvasc 5 mg tablet 7.5 mg By Mouth Once daily Hold medication if SBP <90 For HYPERTENSIVE HEART DISEASE WITHOUT HEART FAILURE 7.5 mg 07/06 Inactiv e 2023 05901 18350 1 Once daily By Mouth I11.9 False Simethicone 125 mg capsule [generic] 2 capule By Mouth Twice daily as needed For bloating/gas pain 2 capule 2023 Active 2023 29485 53821 0 Twice daily as needed By Mouth False Cepacol Sore Throat (benzocaine -menthol) 15 mg-2.6 mg lozenges 2 lozenges By Mouth Every 6 hours as needed For sore throat 2 lozenge s 2023 Active 2023 26104 06424 6 Every 6 hours as needed By Mouth False Cefepime 1 gram solution for injection [generic] 1g Intramuscular Every 12 hours 1g intramuscular ly ever 12 hours For UTI 1g 07/06 Inactiv e 2023 45724 74125 4 Every 12 hours Intram uscula r False Cefepime 1 gram solution for injection [generic] 07/06 Inactiv e 2023 68284 18559 4 Cefepime 1 gram solution for injection [generic] 1g Intramuscular Every 12 hours 1g intramuscular ly ever 12 hours For UTI Reconstitute with 2.4 ML of NSS. 1g 07/08 Inactiv e 2023 90492 13364 4 Every 12 hours Intram uscula r False Norvasc 5 mg tablet 07/06 Inactiv e 2023 33693 13544 1 I11.9 Norvasc 5 mg tablet 7.5 mg By Mouth Once daily Hold medication if SBP <90 For HYPERTENSIVE HEART DISEASE WITHOUT HEART FAILURE 7.5 mg 2023 Active 2023 61405 93961 1 Once daily By Mouth I11.9 False Cefepime 1 gram solution for injection [generic] 07/08 Inactiv e 2023 90086 62815 4 Cefepime 1 gram solution for injection [generic] 1g Intramuscular Every 12 hours 1g intramuscular ly ever 12 hours For UTI Reconstitute with 2.4 ML of NSS. 1g 202300 Active 2023 13434 01956 4 Every 12 hours Intram uscula r False Nystatin 100,000 unit/gram topical cream [generic] 100,000 unit Topical As Needed For DX- EXCORIATION 100,000 unit 12/12 Inactiv e 2023 04214 02479 5 Topica l False Vicks Vaporub 4.7 %-1.2 %-2.6 % topical ointment 4.7-1.2-2.6 Topical 3 times a day As Needed For DX- CONGESTION 4.7-1.2 -2.6 12/12 Inactiv e 2023 82507 22525 1 3 times a day Topica l False Ketoconazol e 2 % shampoo [generic] APPLY SHAMPOO TOPICALLY TO SCALP DURING HAIR WASHINGDX: ELVIA DERM OF SCALP For DX- ELVIA DERM OF SCALP 12/12 Inactiv e 2023 80038 42392 4 Topica l False THERA SILICONE SKIN GUARD Topical Twice daily 1 APPLICATION TOPICALLY IN THE MORNING AND AT BEDTIME TO SCROTUM For DX- PREVENTION 2023 Active 2023 Twice daily Topica l False Selenium sulfide 2.5 % lotion [generic] 2.5 % Topical EVERY MONDAY, MONDAY AND MONDAY AFTER SHOWER For DANDRUFF 2.5 % 2023 Active 2023 07382 46195 4 3 times a week Topica l False Nystatin (bulk) 100 million unit powder [generic] 100 million Topical Twice daily as needed For EXOCORATION 100 million 12/20 Inactiv e 2023 59604 34935 1 Twice daily as needed Topica l False Ketoconazol e 2 % shampoo [generic] Once daily APPLY SHAMPOO TOPICALLY TO SCALP DURING HAIR WASHING ON SHOWER DAYS- , , MON For ELVIA DERM OF SCAP 2 % 2023 Active 2023 75730 13076 4 Once daily Topica l False Nystatin 100,000 unit/gram topical cream [generic] 1 mague Topical Twice daily as needed For EXOCORATION 1 mague 06/05 Inactiv e 2023 81031 29215 5 Twice daily as needed Topica l False Nystatin 100,000 unit/gram topical powder [generic] 100,000 unit Topical Twice daily to scrotum with AM and PM care For Scrotal excoriation 100,000 unit 06/05 Inactiv e 2023 65526 04319 5 Twice daily Topica l False Problems [...] Temperature SpO2 Blood Sugar Pulse Respirations 130 79119 5 78.00 mm[Hg] - Sitting 152.00 mm[Hg] - Sitting 201 21934 1 87.00 mm[Hg] - Sitting 189.00 mm[Hg] - Sitting 202 31087 2 76.00 mm[Hg] - Sitting 136.00 mm[Hg] - Sitting 203 02894 2 259.80 NI 203 06709 5 93.00 mm[Hg] - Sitting 137.00 mm[Hg] - Sitting 204 54098 2 259.40 NI 204 42504 1 78.00 mm[Hg] - Sitting 144.00 mm[Hg] - Sitting 205 66188 4 85.00 mm[Hg] - Sitting 142.00 mm[Hg] - Sitting 206 90591 9 76.00 mm[Hg] - Sitting 132.00 mm[Hg] - Sitting 208 37537 9 82.00 mm[Hg] - Sitting 128.00 mm[Hg] - Sitting 209 92660 2 78.00 mm[Hg] - Sitting 130.00 mm[Hg] - Sitting 210 72875 6 80.00 mm[Hg] - Sitting 132.00 mm[Hg] - Sitting 57676 211 97571 5 78.00 mm[Hg] - Sitting 125.00 mm[Hg] - Sitting 75503 216 17785 1 254.10 NI 62245 216 01126 2 79.00 mm[Hg] - Sitting 157.00 mm[Hg] - Sitting 73 NI 254.10 NI 36.30 Tympanic 95.00 % 72.00/ min 16.00/min 49331 216 49933 4 98.80 Tympanic 03151 216 96495 2 78.00 mm[Hg] - Sitting 164.00 mm[Hg] - Sitting 24053 217 72996 3 98.20 Tympanic 50185 217 00037 5 73.00 mm[Hg] - Sitting 159.00 mm[Hg] - Sitting 37109 217 53485 9 98.40 Forehead Scan 26911 218 40674 3 97.90 Tympanic 55504 218 83157 5 77.00 mm[Hg] - Sitting 137.00 mm[Hg] - Sitting 26342 219 76788 0 97.70 Tympanic 86689 219 46288 6 97.60 Tympanic 41511 219 02056 4 76.00 mm[Hg] - Sitting 139.00 mm[Hg] - Sitting 86149 219 52654 4 97.80 Forehead Scan 26303 220 04786 9 97.90 Tympanic 30186 220 85486 9 76.00 mm[Hg] - Sitting 138.00 mm[Hg] - Sitting 61901 220 55990 6 98.10 Tympanic 56236 221 97127 5 67.00 mm[Hg] - Sitting 142.00 mm[Hg] - Sitting 38062 221 57959 8 98.20 Tympanic 07887 221 41961 0 98.30 Tympanic 41883 222 84272 7 98.20 Tympanic 62882 222 77775 8 97.90 Tympanic 85729 223 10969 3 98.20 Tympanic 97714 223 26888 3 98.00 Tympanic 42753 224 81235 0 59.00 mm[Hg] - Sitting 111.00 mm[Hg] - Sitting 98.40 Forehead Scan 95.00 % 56.00/ min 18.00/min 77097 224 20968 9 98.20 Forehead Scan 10751 224 95141 3 97.90 Tympanic 46522 225 86848 4 98.20 Tympanic 12153 225 50684 8 97.50 Forehead Scan 228 05107 0 55.00 mm[Hg] - Sitting 118.00 mm[Hg] - Sitting 98.40 Tympanic 69.00/ min 229 14260 8 78.00 mm[Hg] - Sitting 152.00 mm[Hg] - Sitting 230 84532 0 62.00 mm[Hg] - Sitting 122.00 mm[Hg] [...]
--- OUTSIDE RECORDS SUMMARY | 2024-07-26 11:24 | External Medical Summary | Continuity Of Care Document ---
Author Name Unknown Address [address] [place] [address] Organization [facility] () Care Team Providers Care Hook Tender Name Role Phone DO Prithcett Amy Primary Care Provider [phone] Allergies Allergy Reaction Start Date End Date Status AMINOGLYCOSIDES Active CIPRO Active GENTAMICIN Active NSAIDS (NON-STEROIDAL ANTI-INFLAMMATORY DRUG) 0 Active IBUPROFEN Active QUINOLONES Active VALIUM Active Medications Medication Instructions Dosage Start Date End Date Status Order Date Drug Code Frequency Route of Admin Diagnosis Code Substitutions Allowed Spikevax 0109-1025(1 2y up)(PF) 50 mcg/0.5 mL intramuscul ar suspension [COVID obs94-94(12 up)(andu)(P F)] 0.5mL Intramuscular 1 time Monitory 15 Minutes post injection for adverse effects; record site/temp For COVID 19 PREVENTION 0.5mL 01/02 Inactiv e 2023 63066 44302 4 1 time Intram uscula r False [facility] - Nurse initials indicate verificatio n that [id number] vaccine was administere d by [facility] jon 1 Intramuscular 1 time ( Indicate vaccine type) For vaccine 1 05/03 Inactiv e 2023 1 time Intram uscula r False Lisinopril 40 mg tablet [generic] TAKE ONE (1) TABLET BY MOUTH IN THE MORNING. For DX- HTN 1 2023 Active 2023 52796 54245 1 Once daily By Mouth False Tizanidine 2 mg tablet [generic] TAKE ONE (1) TABLET BY MOUTH ONCE DAILY For MUSCLE SPASM 1 2023 Active 2023 19535 13322 0 Once daily By Mouth M62.838 False Tamsulosin 0.4 mg capsule [generic] TAKE (1) CAPSULE BY MOUTH AT BEDTIME For SPASMS 1 2023 Active 2023 91203 20609 0 Once daily By Mouth False Aspirin 81 mg tablet Once daily 1 TABLET BY MOUTH IN THE MORNING For DX- CAD DO NOT CRUSH, CHEW OR BREAK 81 mg 06/12 Inactiv e 2023 Once daily By Mouth False Baclofen 20 mg tablet [generic] 20 mg By Mouth 4 times a day For DX- MUSCLE SPASMS 20 mg 12/12 Inactiv e 2023 64560 77054 1 4 times a day By Mouth False Calcium citrate 250 mg tablet Once daily 4 TABLET BY MOUTH For DX- SUPPLEMENT 250 mg calci 12/12 Inactiv e 2023 Once daily By Mouth False Co Q-10 100 mg capsule 100 mg By Mouth Once daily For DX- SUPPLEMENT 100 mg 06/20 Inactiv e 2023 28880 23458 5 Once daily By Mouth False Furosemide 20 mg tablet [generic] 20 mg By Mouth Once daily For DX-CHF 20 mg 12/12 Inactiv e 2023 75908 26964 0 Once daily By Mouth False Gabapentin 300 mg capsule [generic] 300 mg By Mouth 3 times a day For DX- NEUROPATHY 300 mg 12/12 Inactiv e 2023 49990 03954 4 3 times a day By Mouth False Loratadine 10 mg tablet [generic] 10 mg By Mouth Once daily For DX- ALLERGIES 10 mg 2023 Active 2023 04361 46811 1 Once daily By Mouth False Miralax 17 gram/dose oral powder 17 gram/dose By Mouth IN THE MORNING Mix 1 TABLESPOON IN 8 OZ OF FLUID HOLD FOR LOOSE STOOLS For DX- CONSTIPATION 17 gram/do se 12/12 Inactiv e 2023 58472 60011 0 Once daily By Mouth False Paroxetine 30 mg tablet [generic] 30 mg By Mouth Once daily For DX- DEPRESSION 30 mg 2023 00/00 /0000 Active 2023 14100 45523 3 Once daily By Mouth False Potassium citrate ER 15 mEq (1,620 mg) tablet,exte nded release [generic] 15 mEq By Mouth 3 times a day For DX- SUPPLEMENT/DI URETIC USE/ HYPOCITRAUIRA DO NOT CRUSH 15 mEq 12/12 Inactiv e 2023 72987 78999 1 3 times a day By Mouth [...] For DX- DANDRUFF 12/12 Inactiv e 2023 29503 55385 4 3 times a week Topica l False Acetaminoph en 325 mg tablet [generic] TAKE 2 TABS (650MG) BY MOUTH EVERY 4 HOURS NEEDED FOR TEMP >100 NOT TO EXCEED 3GM/24HRS TAKE 2 TABS (650MG) BY MOUTH EVERY 4 HOURS NEEDED FOR TEMP >100 NOT TO EXCEED 3GM/24HRS For DX-FEVER 2 12/12 Inactiv e 2023 96446 51354 0 By Mouth False MILK OF MAGNESIA ADMINISTER 30 ML BY MOUTH ONCE DAILY NEEDED FOR CONSTIPATION X3 DAYS WITH NO BM. For DX- CONSTIPATION 30ML 12/12 Inactiv e 2023 23231 19154 9 By Mouth False Enema Disposable 19 gram-7 gram/118 mL ADMINISTER ONE ENEMA RECTALLY ONCE DAILY NEEDED FOR CONSTIPATION ON DAY 6 OF NO BM For DX- CONSTIPATION 12/12 Inactiv e 2023 16574 23189 1 Rectal False TUMS EXTRA STR 750MG TAKE (1) TABLET BY MOUTH THREE TIMES DAILY NEEDED FOR INDIGESTION For DX- INDIGESTION 1 12/12 Inactiv e 2023 09500 94003 8 By Mouth False Vitamin D3 25 [...] CONSTIPATION 10 mg 12/12 Inactiv e 2023 89661 69310 1 Rectal False Melatonin 3 mg tablet [generic] 3 mg By Mouth As Needed For DX-INSOMMIA 3 mg 12/12 Inactiv e 2023 61540 71060 8 By Mouth False Hydrocortis one 1 % topical cream [generic] 1 % Topical As Needed For DX- PAIN 1 % 12/12 Inactiv e 2023 70243 05104 1 Topica l False HYDROCORTIS ONE/PARMOXI NE [...] 5-10 50 mg 12/20 Inactiv e 2023 27199 17748 0 Every 4 hours as needed By Mouth False Tylenol 325 mg tablet 325 mg By Mouth Every 4 hours as needed For DX- PAIN PRN FOR MILD PAIN, DO NOT EXCEED 3000MG APAP/24 HOURS 325 mg 12/20 Inactiv e 2023 78534 34191 0 Every 4 hours as needed By Mouth False Baclofen 20 mg tablet [generic] 20 mg By Mouth 4 times a day For MUSCLE SPASMS 20 mg 12/20 Inactiv e 2023 53028 61259 1 4 times a day By Mouth False Calcium citrate 250 mg tablet [generic] Once daily TAKE 4 TABLETS (1000MG) BY MOUTH For SUPPLEMENT 1000 MG 06/26 Inactiv e 2023 06095 54261 6 Once daily By Mouth False Dulcolax (bisacodyl) 10 mg rectal suppository 10 mg Rectal Once daily For CONSTIPATION *MAY HOLD FOR LOOSE STOOLS* 10 mg 2023 Active 2023 35786 25222 1 Once daily Rectal False Gabapentin 300 mg capsule [generic] 300 mg By Mouth 3 times a day For NEUROPATHY 300 mg 2023 Active 2023 26062 79063 4 3 times a day By Mouth False Potassium citrate ER 15 mEq (1,620 mg) tablet,exte nded release [generic] 15 mEq By Mouth 3 times a day For SUPPLEMENT/DI URETIC USE/HYPOCITRA URIA 15 mEq 06/11 Inactiv e 2023 44441 61668 1 3 times a day By Mouth False Potassium chloride ER 20 mEq tablet,exte nded release [generic] 20 mEq By Mouth 3 times a day *DO NOT CRUSH, CHEW OR BREAK* For SUPPLEMENT 20 mEq 12/18 Inactiv e 2023 43589 28111 1 3 times a day By Mouth False Tizanidine 4 mg tablet [generic] 4 mg By Mouth Once daily For MUSCLE SPASMS 4 mg 2023 Active 2023 57091 60615 0 Once daily By Mouth False Tylenol 325 mg tablet 2 tabs By Mouth Every 4 hours as needed For Fever >100 DO NOT EXCEED 3000 MG APAP/24 Hours 2 tabs 12/20 Inactiv e 2023 05856 01306 0 Every 4 hours as needed By Mouth False Dulcolax (bisacodyl) 10 mg rectal suppository Daily as needed For Constipation 1 sup 12/20 Inactiv e 2023 40805 89782 1 Daily as needed Rectal False Fleet Enema 19 gram-7 gram/118 mL 1 Rectal Daily as neededFor Constipation 1 12/20 Inactiv e 2023 85875 22812 6 Daily as needed Rectal False Problems [...] adjustment of urinary device 07/21/2023 Active Z79.01 meterman (current) use of anticoagulants 07/21 Active N31.9 Neuromuscular dysfun ction of bladder, unspecified 07/21/2023 Active VITAL SIGNS Date Time Diastolic blood pressure Systolic blood pressure Body height Body weight Temperature SpO2 Blood Sugar Pulse Respirations 129 47129 3 83.00 mm[Hg] - Sitting 174.00 mm[Hg] - Sitting 10847 130 84004 5 78.00 mm[Hg] - Sitting 152.00 mm[Hg] - Sitting 81437 201 77839 1 87.00 mm[Hg] - Sitting 189.00 mm[Hg] - Sitting 75649 202 17098 2 76.00 mm[Hg] - Sitting 136.00 mm[Hg] - Sitting 53798 203 95413 2 259.80 NI 79988 203 64730 5 93.00 mm[Hg] - Sitting 137.00 mm[Hg] - Sitting 08597 204 58623 2 259.40 NI 57243 204 31786 1 78.00 mm[Hg] - Sitting 144.00 mm[Hg] - Sitting 41332 205 83270 4 85.00 mm[Hg] - Sitting 142.00 mm[Hg] - Sitting 44483 206 47918 9 76.00 mm[Hg] - Sitting 132.00 mm[Hg] - Sitting 77350 208 48137 9 82.00 mm[Hg] - Sitting 128.00 mm[Hg] - Sitting 12433 209 32065 2 78.00 mm[Hg] - Sitting 130.00 mm[Hg] - Sitting 20092 210 35751 6 80.00 mm[Hg] - Sitting 132.00 mm[Hg] - Sitting 86843 211 94407 5 78.00 mm[Hg] - Sitting 125.00 mm[Hg] - Sitting 14228 216 07390 1 254.10 NI 46045 216 83616 2 79.00 mm[Hg] - Sitting 157.00 mm[Hg] - Sitting 73 NI 254.10 NI 36.30 Tympanic 95.00 % 72.00/ min 16.00/min 81594 216 93686 4 98.80 Tympanic 16954 216 79471 2 78.00 mm[Hg] - Sitting 164.00 mm[Hg] - Sitting 74248 217 31142 3 98.20 Tympanic 05551 217 14622 5 73.00 mm[Hg] - Sitting 159.00 mm[Hg] - Sitting 88655 217 49201 9 98.40 Forehead Scan 81678 218 07569 3 97.90 Tympanic 15071 218 79892 5 77.00 mm[Hg] - Sitting 137.00 mm[Hg] - Sitting 20517 219 03274 0 97.70 Tympanic 73940 219 16366 6 97.60 Tympanic 25302 219 28926 4 76.00 mm[Hg] - Sitting 139.00 mm[Hg] - Sitting 79794 219 13532 4 97.80 Forehead Scan 07243 220 23253 9 97.90 Tympanic 66829 220 71425 9 76.00 mm[Hg] - Sitting 138.00 mm[Hg] - Sitting 61088 220 96290 6 98.10 Tympanic 96730 221 24381 5 67.00 mm[Hg] - Sitting 142.00 mm[Hg] - Sitting 60787 221 29864 8 98.20 Tympanic 83312 221 28084 0 98.30 Tympanic 73725 222 34386 7 98.20 Tympanic 11585 222 61241 8 97.90 Tympanic 22690 223 22095 3 98.20 Tympanic 39744 223 12936 3 98.00 Tympanic 31764 224 56642 0 59.00 mm[Hg] - Sitting 111.00 mm[Hg] - Sitting 98.40 Forehead Scan 95.00 % 56.00/ min 18.00/min 11604 224 38737 9 98.20 Forehead Scan 44860 224 94312 3 97.90 Tympanic 38599 225 89552 4 98.20 Tympanic 90795 225 96216 8 97.50 Forehead Scan 35765 228 78240 0 55.00 mm[Hg] - Sitting 118.00 mm[Hg] - Sitting 98.40 Tympanic 69.00/ min 17928 229 40334 8 78.00 mm[Hg] - Sitting 152.00 mm[Hg] [...]
--- OUTSIDE RECORDS SUMMARY | 2024-07-26 11:24 | External Medical Summary | Continuity Of Care Document ---
Author Name Unknown Address [address] [address] Organization [facility] () Care Team Providers Care Size Stamper Name Role Phone DO Pritchett Amy Primary Care Provider [phone] Allergies Allergy Reaction Start Date End Date Status AMINOGLYCOSIDES Active CIPRO Active GENTAMICIN Active NSAIDS (NON-STEROIDAL ANTI-INFLAMMATORY DRUG) 0 Active IBUPROFEN Active QUINOLONES Active VALIUM Active Medications Medication Instructions Dosage Start Date End Date Status Order Date Drug Code Frequency Route of Admin Diagnosis Code Substitutions Allowed Spikevax 7106-3483(1 2y up)(PF) 50 mcg/0.5 mL intramuscul ar suspension [COVID vei91-83(12 up)(andu)(P F)] 0.5mL Intramuscular 1 time Monitory 15 Minutes post injection for adverse effects; record site/temp For COVID 19 PREVENTION 0.5mL 01/02 Inactiv e 2023 74969 16793 4 1 time Intram uscula r False [facility] - Nurse initials indicate verificatio n that [id number] vaccine was administere d by [facility] jon 1 Intramuscular 1 time ( Indicate vaccine type) For vaccine 1 05/03 Inactiv e 2023 1 time Intram uscula r False Lisinopril 40 mg tablet [generic] TAKE ONE (1) TABLET BY MOUTH IN THE MORNING. For DX- HTN 1 2023 Active 2023 10171 66961 1 Once daily By Mouth False Tizanidine 2 mg tablet [generic] TAKE ONE (1) TABLET BY MOUTH ONCE DAILY For MUSCLE SPASM 1 2023 Active 2023 53816 25965 0 Once daily By Mouth M62.838 False Tamsulosin 0.4 mg capsule [generic] TAKE (1) CAPSULE BY MOUTH AT BEDTIME For SPASMS 1 2023 Active 2023 71550 75121 0 Once daily By Mouth False Aspirin 81 mg tablet Once daily 1 TABLET BY MOUTH IN THE MORNING For DX- CAD DO NOT CRUSH, CHEW OR BREAK 81 mg 06/12 Inactiv e 2023 Once daily By Mouth False Baclofen 20 mg tablet [generic] 20 mg By Mouth 4 times a day For DX- MUSCLE SPASMS 20 mg 12/12 Inactiv e 2023 40346 18893 1 4 times a day By Mouth False Calcium citrate 250 mg tablet Once daily 4 TABLET BY MOUTH For DX- SUPPLEMENT 250 mg calci 12/12 Inactiv e 2023 Once daily By Mouth False Co Q-10 100 mg capsule 100 mg By Mouth Once daily For DX- SUPPLEMENT 100 mg 06/20 Inactiv e 2023 17536 78418 5 Once daily By Mouth False Furosemide 20 mg tablet [generic] 20 mg By Mouth Once daily For DX-CHF 20 mg 12/12 Inactiv e 2023 19943 18245 0 Once daily By Mouth False Gabapentin 300 mg capsule [generic] 300 mg By Mouth 3 times a day For DX- NEUROPATHY 300 mg 12/12 Inactiv e 2023 14385 10856 4 3 times a day By Mouth False Loratadine 10 mg tablet [generic] 10 mg By Mouth Once daily For DX- ALLERGIES 10 mg 2023 Active 2023 93123 08996 1 Once daily By Mouth False Miralax 17 gram/dose oral powder 17 gram/dose By Mouth IN THE MORNING Mix 1 TABLESPOON IN 8 OZ OF FLUID HOLD FOR LOOSE STOOLS For DX- CONSTIPATION 17 gram/do se 12/12 Inactiv e 2023 91700 42928 0 Once daily By Mouth False Paroxetine 30 mg tablet [generic] 30 mg By Mouth Once daily For DX- DEPRESSION 30 mg 2023 00/00 /0000 Active 2023 69834 46975 3 Once daily By Mouth False Potassium citrate ER 15 mEq (1,620 mg) tablet,exte nded release [generic] 15 mEq By Mouth 3 times a day For DX- SUPPLEMENT/DI URETIC USE/ HYPOCITRAUIRA DO NOT CRUSH 15 mEq 12/12 Inactiv e 2023 58654 45107 1 3 times a day By Mouth [...] For DX- DANDRUFF 12/12 Inactiv e 2023 35150 46842 4 3 times a week Topica l False Acetaminoph en 325 mg tablet [generic] TAKE 2 TABS (650MG) BY MOUTH EVERY 4 HOURS NEEDED FOR TEMP >100 NOT TO EXCEED 3GM/24HRS TAKE 2 TABS (650MG) BY MOUTH EVERY 4 HOURS NEEDED FOR TEMP >100 NOT TO EXCEED 3GM/24HRS For DX-FEVER 2 12/12 Inactiv e 2023 06657 74843 0 By Mouth False MILK OF MAGNESIA ADMINISTER 30 ML BY MOUTH ONCE DAILY NEEDED FOR CONSTIPATION X3 DAYS WITH NO BM. For DX- CONSTIPATION 30ML 12/12 Inactiv e 2023 01726 70885 9 By Mouth False Enema Disposable 19 gram-7 gram/118 mL ADMINISTER ONE ENEMA RECTALLY ONCE DAILY NEEDED FOR CONSTIPATION ON DAY 6 OF NO BM For DX- CONSTIPATION 12/12 Inactiv e 2023 10063 15105 1 Rectal False TUMS EXTRA STR 750MG TAKE (1) TABLET BY MOUTH THREE TIMES DAILY NEEDED FOR INDIGESTION For DX- INDIGESTION 1 12/12 Inactiv e 2023 45070 32824 8 By Mouth False Vitamin D3 25 [...] CONSTIPATION 10 mg 12/12 Inactiv e 2023 10442 57571 1 Rectal False Melatonin 3 mg tablet [generic] 3 mg By Mouth As Needed For DX-INSOMMIA 3 mg 12/12 Inactiv e 2023 93759 02758 8 By Mouth False Hydrocortis one 1 % topical cream [generic] 1 % Topical As Needed For DX- PAIN 1 % 12/12 Inactiv e 2023 25668 96454 1 Topica l False HYDROCORTIS ONE/PARMOXI NE [...] 5-10 50 mg 12/20 Inactiv e 2023 50545 70698 0 Every 4 hours as needed By Mouth False Tylenol 325 mg tablet 325 mg By Mouth Every 4 hours as needed For DX- PAIN PRN FOR MILD PAIN, DO NOT EXCEED 3000MG APAP/24 HOURS 325 mg 12/20 Inactiv e 2023 14455 77973 0 Every 4 hours as needed By Mouth False Baclofen 20 mg tablet [generic] 20 mg By Mouth 4 times a day For MUSCLE SPASMS 20 mg 12/20 Inactiv e 2023 90069 09506 1 4 times a day By Mouth False Calcium citrate 250 mg tablet [generic] Once daily TAKE 4 TABLETS (1000MG) BY MOUTH For SUPPLEMENT 1000 MG 06/26 Inactiv e 2023 89460 77183 6 Once daily By Mouth False Dulcolax (bisacodyl) 10 mg rectal suppository 10 mg Rectal Once daily For CONSTIPATION *MAY HOLD FOR LOOSE STOOLS* 10 mg 2023 Active 2023 03913 12494 1 Once daily Rectal False Gabapentin 300 mg capsule [generic] 300 mg By Mouth 3 times a day For NEUROPATHY 300 mg 2023 Active 2023 88293 78873 4 3 times a day By Mouth False Potassium citrate ER 15 mEq (1,620 mg) tablet,exte nded release [generic] 15 mEq By Mouth 3 times a day For SUPPLEMENT/DI URETIC USE/HYPOCITRA URIA 15 mEq 06/11 Inactiv e 2023 15292 33149 1 3 times a day By Mouth False Potassium chloride ER 20 mEq tablet,exte nded release [generic] 20 mEq By Mouth 3 times a day *DO NOT CRUSH, CHEW OR BREAK* For SUPPLEMENT 20 mEq 12/18 Inactiv e 2023 92879 36868 1 3 times a day By Mouth False Tizanidine 4 mg tablet [generic] 4 mg By Mouth Once daily For MUSCLE SPASMS 4 mg 2023 Active 2023 26104 90706 0 Once daily By Mouth False Tylenol 325 mg tablet 2 tabs By Mouth Every 4 hours as needed For Fever >100 DO NOT EXCEED 3000 MG APAP/24 Hours 2 tabs 12/20 Inactiv e 2023 19767 00026 0 Every 4 hours as needed By Mouth False Dulcolax (bisacodyl) 10 mg rectal suppository Daily as needed For Constipation 1 sup 12/20 Inactiv e 2023 42663 36338 1 Daily as needed Rectal False Fleet Enema 19 gram-7 gram/118 mL 1 Rectal Daily as neededFor Constipation 1 12/20 Inactiv e 2023 62864 95219 6 Daily as needed Rectal False Milk of Magnesia 400 mg/5 mL oral suspension [Magnesium hydroxide] PRN 30ml By Mouth Daily as needed for constipation one time daily if no BM, on day 4 of no BM (PRN refer to instructions) For Constipation For Constipatioin 30ml 12/20 Inactiv e 2023 82276 47855 6 1 time By Mouth False Melatonin 3 mg tablet [generic] 3 mg By Mouth Once daily As Needed For INSOMNIA 3 mg 12/20 Inactiv e 2023 61169 61099 8 Once daily By Mouth False Hydrocortis one 1 % topical cream [generic] 1 % Rectal Four times daily as needed For hemorroid pain 1 % 12/20 Inactiv e 2023 84735 42206 1 Four times daily as needed Rectal False Problems Code Description [...] Temperature SpO2 Blood Sugar Pulse Respirations 129 14051 3 83.00 mm[Hg] - Sitting 174.00 mm[Hg] - Sitting 130 82539 5 78.00 mm[Hg] - Sitting 152.00 mm[Hg] - Sitting 201 78085 1 87.00 mm[Hg] - Sitting 189.00 mm[Hg] - Sitting 202 38649 2 76.00 mm[Hg] - Sitting 136.00 mm[Hg] - Sitting 203 92778 2 259.80 NI 203 25768 5 93.00 mm[Hg] - Sitting 137.00 mm[Hg] - Sitting 204 80007 2 259.40 NI 204 14211 1 78.00 mm[Hg] - Sitting 144.00 mm[Hg] - Sitting 205 56216 4 85.00 mm[Hg] - Sitting 142.00 mm[Hg] - Sitting 206 28618 9 76.00 mm[Hg] - Sitting 132.00 mm[Hg] - Sitting 208 98622 9 82.00 mm[Hg] - Sitting 128.00 mm[Hg] - Sitting 209 46545 2 78.00 mm[Hg] - Sitting 130.00 mm[Hg] - Sitting 210 30329 6 80.00 mm[Hg] - Sitting 132.00 mm[Hg] - Sitting 211 99327 5 78.00 mm[Hg] - Sitting 125.00 mm[Hg] - Sitting 216 02667 1 254.10 NI 46083 216 92320 2 79.00 mm[Hg] - Sitting 157.00 mm[Hg] - Sitting 73 NI 254.10 NI 36.30 Tympanic 95.00 % 72.00/ min 16.00/min 86227 216 58430 4 98.80 Tympanic 59441 216 81977 2 78.00 mm[Hg] - Sitting 164.00 mm[Hg] - Sitting 52504 217 59390 3 98.20 Tympanic 33542 217 96227 5 73.00 mm[Hg] - Sitting 159.00 mm[Hg] - Sitting 41800 217 41513 9 98.40 Forehead Scan 90148 218 39874 3 97.90 Tympanic 76932 218 06380 5 77.00 mm[Hg] - Sitting 137.00 mm[Hg] - Sitting 88140 219 54721 0 97.70 Tympanic Immunizations Vaccine Date Status COVID-19 08/02/2020 [...]
--- OUTSIDE RECORDS SUMMARY | 2024-07-26 11:24 | External Medical Summary | Continuity Of Care Document ---
Author Name Unknown Address [address] [address] Organization [facility] () Care Team Providers Care Supervisory Aide Name Role Phone DO Pritchett Amy Primary Care Provider [phone] Allergies Allergy Reaction Start Date End Date Status AMINOGLYCOSIDES Active CIPRO Active GENTAMICIN Active NSAIDS (NON-STEROIDAL ANTI-INFLAMMATORY DRUG) 0 Active IBUPROFEN Active QUINOLONES Active VALIUM Active Medications Medication Instructions Dosage Start Date End Date Status Order Date Drug Code Frequency Route of Admin Diagnosis Code Substitutions Allowed Spikevax [id number](1 2y up)(PF) 50 mcg/0.5 mL intramuscul ar suspension [COVID ram91-18(12 up)(andu)(P F)] 0.5mL Intramuscular 1 time Monitory 15 Minutes post injection for adverse effects; record site/temp For COVID 19 PREVENTION 0.5mL 01/02 Inactiv e 2023 24987 26693 4 1 time Intram uscula r False [facility] - Nurse initials indicate verificatio n that [id number] vaccine was administere d by [facility] jon 1 Intramuscular 1 time ( Indicate vaccine type) For vaccine 1 05/03 Inactiv e 2023 1 time Intram uscula r False Lisinopril 40 mg tablet [generic] TAKE ONE (1) TABLET BY MOUTH IN THE MORNING. For DX- HTN 1 2023 Active 2023 74120 84026 1 Once daily By Mouth False Tizanidine 2 mg tablet [generic] TAKE ONE (1) TABLET BY MOUTH ONCE DAILY For MUSCLE SPASM 1 2023 Active 2023 47612 98117 0 Once daily By Mouth M62.838 False Tamsulosin 0.4 mg capsule [generic] TAKE (1) CAPSULE BY MOUTH AT BEDTIME For SPASMS 1 2023 Active 2023 20954 60167 0 Once daily By Mouth False Aspirin 81 mg tablet Once daily 1 TABLET BY MOUTH IN THE MORNING For DX- CAD DO NOT CRUSH, CHEW OR BREAK 81 mg 06/12 Inactiv e 2023 Once daily By Mouth False Baclofen 20 mg tablet [generic] 20 mg By Mouth 4 times a day For DX- MUSCLE SPASMS 20 mg 12/12 Inactiv e 2023 75270 33246 1 4 times a day By Mouth False Calcium citrate 250 mg tablet Once daily 4 TABLET BY MOUTH For DX- SUPPLEMENT 250 mg calci 12/12 Inactiv e 2023 Once daily By Mouth False Co Q-10 100 mg capsule 100 mg By Mouth Once daily For DX- SUPPLEMENT 100 mg 06/20 Inactiv e 2023 30817 57786 5 Once daily By Mouth False Furosemide 20 mg tablet [generic] 20 mg By Mouth Once daily For DX-CHF 20 mg 12/12 Inactiv e 2023 15296 32640 0 Once daily By Mouth False Gabapentin 300 mg capsule [generic] 300 mg By Mouth 3 times a day For DX- NEUROPATHY 300 mg 12/12 Inactiv e 2023 46436 49757 4 3 times a day By Mouth False Loratadine 10 mg tablet [generic] 10 mg By Mouth Once daily For DX- ALLERGIES 10 mg 2023 Active 2023 54106 85433 1 Once daily By Mouth False Miralax 17 gram/dose oral powder 17 gram/dose By Mouth IN THE MORNING Mix 1 TABLESPOON IN 8 OZ OF FLUID HOLD FOR LOOSE STOOLS For DX- CONSTIPATION 17 gram/do se 12/12 Inactiv e 2023 01004 30481 0 Once daily By Mouth False Paroxetine 30 mg tablet [generic] 30 mg By Mouth Once daily For DX- DEPRESSION 30 mg 2023 00/00 /0000 Active 2023 34343 57870 3 Once daily By Mouth False Potassium citrate ER 15 mEq (1,620 mg) tablet,exte nded release [generic] 15 mEq By Mouth 3 times a day For DX- SUPPLEMENT/DI URETIC USE/ HYPOCITRAUIRA DO NOT CRUSH 15 mEq 12/12 Inactiv e 2023 03838 67734 1 3 times a day By Mouth [...] For DX- DANDRUFF 12/12 Inactiv e 2023 10820 05409 4 3 times a week Topica l False Acetaminoph en 325 mg tablet [generic] TAKE 2 TABS (650MG) BY MOUTH EVERY 4 HOURS NEEDED FOR TEMP >100 NOT TO EXCEED 3GM/24HRS TAKE 2 TABS (650MG) BY MOUTH EVERY 4 HOURS NEEDED FOR TEMP >100 NOT TO EXCEED 3GM/24HRS For DX-FEVER 2 12/12 Inactiv e 2023 43855 33102 0 By Mouth False MILK OF MAGNESIA ADMINISTER 30 ML BY MOUTH ONCE DAILY NEEDED FOR CONSTIPATION X3 DAYS WITH NO BM. For DX- CONSTIPATION 30ML 12/12 Inactiv e 2023 53361 20462 9 By Mouth False Enema Disposable 19 gram-7 gram/118 mL ADMINISTER ONE ENEMA RECTALLY ONCE DAILY NEEDED FOR CONSTIPATION ON DAY 6 OF NO BM For DX- CONSTIPATION 12/12 Inactiv e 2023 52678 03874 1 Rectal False TUMS EXTRA STR 750MG TAKE (1) TABLET BY MOUTH THREE TIMES DAILY NEEDED FOR INDIGESTION For DX- INDIGESTION 1 12/12 Inactiv e 2023 56920 34802 8 By Mouth False Vitamin D3 25 [...] CONSTIPATION 10 mg 12/12 Inactiv e 2023 67784 69802 1 Rectal False Melatonin 3 mg tablet [generic] 3 mg By Mouth As Needed For DX-INSOMMIA 3 mg 12/12 Inactiv e 2023 71822 24127 8 By Mouth False Hydrocortis one 1 % topical cream [generic] 1 % Topical As Needed For DX- PAIN 1 % 12/12 Inactiv e 2023 85919 06791 1 Topica l False HYDROCORTIS ONE/PARMOXI NE [...] 5-10 50 mg 12/20 Inactiv e 2023 23004 70073 0 Every 4 hours as needed By Mouth False Tylenol 325 mg tablet 325 mg By Mouth Every 4 hours as needed For DX- PAIN PRN FOR MILD PAIN, DO NOT EXCEED 3000MG APAP/24 HOURS 325 mg 12/20 Inactiv e 2023 51207 43528 0 Every 4 hours as needed By Mouth False Baclofen 20 mg tablet [generic] 20 mg By Mouth 4 times a day For MUSCLE SPASMS 20 mg 12/20 Inactiv e 2023 77067 51905 1 4 times a day By Mouth False Calcium citrate 250 mg tablet [generic] Once daily TAKE 4 TABLETS (1000MG) BY MOUTH For SUPPLEMENT 1000 MG 06/26 Inactiv e 2023 40871 37238 6 Once daily By Mouth False Dulcolax (bisacodyl) 10 mg rectal suppository 10 mg Rectal Once daily For CONSTIPATION *MAY HOLD FOR LOOSE STOOLS* 10 mg 2023 Active 2023 55628 34885 1 Once daily Rectal False Gabapentin 300 mg capsule [generic] 300 mg By Mouth 3 times a day For NEUROPATHY 300 mg 2023 Active 2023 56727 20947 4 3 times a day By Mouth False Potassium citrate ER 15 mEq (1,620 mg) tablet,exte nded release [generic] 15 mEq By Mouth 3 times a day For SUPPLEMENT/DI URETIC USE/HYPOCITRA URIA 15 mEq 06/11 Inactiv e 2023 85442 00939 1 3 times a day By Mouth False Potassium chloride ER 20 mEq tablet,exte nded release [generic] 20 mEq By Mouth 3 times a day *DO NOT CRUSH, CHEW OR BREAK* For SUPPLEMENT 20 mEq 12/18 Inactiv e 2023 30599 62258 1 3 times a day By Mouth False Tizanidine 4 mg tablet [generic] 4 mg By Mouth Once daily For MUSCLE SPASMS 4 mg 2023 Active 2023 25885 18933 0 Once daily By Mouth False Tylenol 325 mg tablet 2 tabs By Mouth Every 4 hours as needed For Fever >100 DO NOT EXCEED 3000 MG APAP/24 Hours 2 tabs 12/20 Inactiv e 2023 60597 19661 0 Every 4 hours as needed By Mouth False Dulcolax (bisacodyl) 10 mg rectal suppository Daily as needed For Constipation 1 sup 12/20 Inactiv e 2023 11511 72137 1 Daily as needed Rectal False Fleet Enema 19 gram-7 gram/118 mL 1 Rectal Daily as neededFor Constipation 1 12/20 Inactiv e 2023 98777 79422 6 Daily as needed Rectal False Milk of Magnesia 400 mg/5 mL oral suspension [Magnesium hydroxide] PRN 30ml By Mouth Daily as needed for constipation one time daily if no BM, on day 4 of no BM (PRN refer to instructions) For Constipation For Constipatioin 30ml 12/20 Inactiv e 2023 05238 00422 6 1 time By Mouth False Melatonin 3 mg tablet [generic] 3 mg By Mouth Once daily As Needed For INSOMNIA 3 mg 12/20 Inactiv e 2023 64372 20981 8 Once daily By Mouth False Hydrocortis one 1 % topical cream [generic] 1 % Rectal Four times daily as needed For hemorroid pain 1 % 12/20 Inactiv e 2023 71509 66809 1 Four times daily as needed Rectal False X-STGH ANTACID 750MG CHEW TAKE (1) TABLET BY MOUTH THREE TIMES DAILY NEEDED FOR INDIGESTION 12/20 Inactiv e 2023 93415 66945 4 Three times daily as needed Saline Mist 0.65 % nasal spray aerosol 0.65 % Nares Four times daily as needed For DRYNESS 0.65 % 12/20 Inactiv e 2023 84099 05288 8 Four times daily as needed Nares False Vicks Vaporub 4.7 %-1.2 %-2.6 % topical ointment Apply topically to chest Three times daily as needed For CONGESTION 4.7-1.2 -2.6 12/20 Inactiv e 2023 81285 07933 1 Three times daily as needed Topica l False VITAMIN D3 2000U CAP TAKE ONE (1) CAPSULE BY MOUTH DAILY* DO NOT CRUSH, CHEW OR BREAK* For Supplement 1 capsule 12/19 Inactiv e 2023 43743 68227 0 Once daily By Mouth False Potassium chloride ER 20 mEq tablet,exte nded release(par t/cryst) [generic] TAKE (1) TABLET BY MOUTH THREE TIMES DAILY (MORNING, AFTERNOON, EVENING)*DO NOT CRUSH, CHEW, OR BREAK* For SUPPLEMENT 20 MEQ 06/11 Inactiv e 2023 46233 40710 5 3 times a day By Mouth False Aspirin 81 mg tablet,camron yed release [generic] TAKE ONE (1) TABLET BY MOUTH ONCE DAILY*DO NOT CRUSH, CHEW OR BREAK* For CAD 81 MG 12/22 Inactiv e 2023 53075 56365 0 Once daily By Mouth False Furosemide 20 mg tablet [generic] TAKE 1 AND 1/2 TABLETS (30MG) BY MOUTH ONCE DAILY For CHF 30mg 2023 Active 2023 01512 30697 1 Once daily By Mouth False Polyethylen e glycol 3350 17 gram/dose oral powder [generic] MIX 17 GRAMS (1 CAPFUL) IN 60Z OF LIQUID AND DRINK BY MOUTH ONCE DAILY *HOLD FOR LOOSE STOOLS* For constipation 17 g 2023 Active 2023 63063 15213 3 Once daily By Mouth False Vitamin D3 50 mcg (2,000 unit) capsule Once daily TAKE ONE (1) CAPSULE BY MOUTH DAILY* DO NOT CRUSH, CHEW OR BREAK* For Supplement 1 capsule 02/07 Inactiv e 2023 13187 01790 2 Once daily By Mouth False Fleet Enema 19 gram-7 gram/118 mL 1 Rectal Daily as neededFor Constipation 1 2023 0000 Active 2023 70072 27014 6 Daily as needed Rectal False Tums E-X 300 mg (as calcium carbonate 750 mg) chewable tablet 1 tab By Mouth TAKE (1) TABLET BY MOUTH THREE TIMES DAILY NEEDED FOR INDIGESTION 1 tab 202300 /0000 Active 2023 21148 65171 1 Three times daily as needed By Mouth False Tylenol 325 mg tablet 2 tabs By Mouth Every 4 hours as needed For Fever >100 DO NOT EXCEED 3000 MG APAP/24 Hours 2 tabs 202300 /0000 Active 2023 63246 28117 0 Every 4 hours as needed By Mouth False Vicks Vaporub 4.7 %-1.2 %-2.6 % topical ointment Apply topically to chest Three times daily as needed For CONGESTION topical 202300 Active 2023 86335 45382 1 Three times daily as needed Topica l False Tylenol 325 mg tablet 2 tabs By Mouth Every 4 hours as needed For DX- PAIN PRN FOR MILD PAIN, DO NOT EXCEED 3000MG APAP/24 HOURS 2 tabs 202300 Active 2023 40353 99513 0 Every 4 hours as needed By Mouth False Tramadol 50 mg tablet [generic] 1 tab By Mouth Every 4 hours as needed For DX- PAIN 5-10 1 tab 03/10 Inactiv e 2023 66831 60444 0 Every 4 hours as needed By Mouth False Saline Mist 0.65 % nasal spray aerosol 2 sprays Nares Four times daily as needed For DRYNESS 2 sprays 202300 / Active 2023 20930 50682 8 Four times daily as needed Nares False Dulcolax (bisacodyl) 10 mg rectal suppository Daily as needed For Constipation 1 sup 202300 / Active 2023 54447 03899 1 Daily as needed Rectal False Hydrocortis one-pramoxi ne 1 %-1 % rectal cream [generic] 1 mague Rectal Four times daily as needed For hemorroid pain 1 mague 202300 /0000 Active 2023 65246 17774 4 Four times daily as needed Rectal False Melatonin 3 mg tablet [generic] 1 tab By Mouth At bedtime as needed For INSOMNIA 1 tab 12/24 Inactiv e 2023 47373 14478 8 At bedtime as needed By Mouth False Milk of Magnesia 400 mg/5 mL oral suspension 30ml By Mouth Daily as needed Daily as needed for constipation one time daily if no BM, on day 4 of no BM (PRN refer to instructions) For Constipation For Constipatioin 30ml 2023 Active 2023 14321 92554 2 Daily as needed By Mouth False Baclofen 20 mg tablet [generic] 20 mg By Mouth 4 times a day For MUSCLE SPASMS 20 mg 2023 Active 2023 80656 12117 1 4 times a day By Mouth False Melatonin 3 mg tablet [generic] 1 tab By Mouth At bedtime as needed For INSOMNIA 1 tab 2023 Active 2023 41256 19494 8 At bedtime as needed By Mouth False Bactrim DS 800 mg-160 mg tablet 1 tab By Mouth Twice daily For URINARY TRACT INFECTION, SITE NOT SPECIFIED 1 tab 01/06 Inactiv e 2023 55181 53684 1 Twice daily By Mouth N39.0 False Cefdinir 300 mg capsule [generic] 300 mg By Mouth Twice daily For UTI 300 mg 01/07 Inactiv e 2023 75716 02709 0 Twice daily By Mouth False Cefdinir 300 mg capsule [generic] 300 mg By Mouth Twice daily For UTI 300 mg 01/17 Inactiv e 2023 99483 45539 0 Twice daily By Mouth False Zyrtec 10 mg tablet 10 mg By Mouth Once daily For sinus congestion 10 mg 01/22 Inactiv e 2023 24303 40452 0 Once daily By Mouth False Tobramycin 0.3 %-dexametha sone 0.1 % eye drops,suspe nsion [generic] 0.3-0.1 % Left Eye 4 times a day For eye infection 0.3-0.1 % 02/05 Inactiv e 2023 13514 07319 5 4 times a day Left Eye False Fluconazole 150 mg tablet [generic] 150 mg By Mouth 1 time For yeast infection 150 mg 02/15 Inactiv e 2023 29356 34160 2 1 time By Mouth False Tramadol 50 mg tablet [generic] 1 tab By Mouth Every 4 hours as needed For DX- PAIN 5-10 1 tab 2023 00/00 /0000 Active 2023 44789 29072 0 Every 4 hours as needed By Mouth False Tobramycin 0.3 %-dexametha sone 0.1 % eye drops,suspe nsion [generic] 1 drop Left Eye 4 times a day For Inflammation of left eye 1 drop 05/08 Inactiv e 2023 60688 96697 5 4 times a day Left Eye False Voltaren Arthritis Pain 1 % topical gel 2 gm Topical Twice daily to rigth shoulder for 2 weeks For pain 2 gm 05/08 Inactiv e 2023 81070 47159 1 Twice daily Topica l False Chlorthalid one 25 mg tablet [generic] 12.5mg By Mouth Once daily For HTN 12.5mg 05/06 Inactiv e 2023 25495 15042 0 Once daily By Mouth False Chlorthalid one 25 mg tablet [generic] 12.5mg By Mouth Once daily For HTN 12.5mg 05/07 Inactiv e 2023 95711 73874 0 Once daily By Mouth False Chlorthalid one 25 mg tablet [generic] 05/07 Inactiv e 2023 71818 01683 0 Chlorthalid one 25 mg tablet [generic] 12.5mg By Mouth Once daily For HTN 12.5mg 06/26 Inactiv e 2023 40032 25607 0 Once daily By Mouth False Norvasc 5 mg tablet 5mg By Mouth Once daily, hold medication if systolic is less than 90 For HYPERTENSIVE HEART DISEASE WITHOUT HEART FAILURE 5mg 06/03 Inactiv e 2023 34178 24778 1 Once daily By Mouth I11.9 False Norvasc 5 mg tablet 5mg By Mouth Once daily, hold medication if systolic is less than 90 For HYPERTENSIVE HEART DISEASE WITHOUT HEART FAILURE 5mg 06/03 Inactiv e 2023 50118 15337 1 Once daily By Mouth I11.9 False Norvasc 5 mg tablet 5mg By Mouth Once daily, hold medication if systolic is less than 90 For HYPERTENSIVE HEART DISEASE WITHOUT HEART FAILURE 5mg 06/26 Inactiv e 2023 62083 28991 1 Once daily By Mouth I11.9 False [...] 10 mg 2023 00/00 /0000 Active 2023 19764 66023 1 Once daily By Mouth False DISCONTINUE [...] CAD 81 mg 06/14 Inactiv e 2023 00047 26883 9 Once daily By Mouth False Aspirin 81 mg tablet,camron yed release [generic] 06/14 Inactiv e 2023 71913 59259 9 Aspirin 81 mg tablet,camron yed release [generic] 81 mg By Mouth Once daily Do not crush, chew, or break For CAD 81 mg 06/154 Inactiv e 2023 52144 88531 9 Once daily By Mouth False Cefpodoxime 200 mg tablet [generic] 200mg By Mouth Twice daily For UTI 200mg 07/04 Inactiv e 2023 73609 83679 0 Twice daily By Mouth False Calcium citrate 250 mg tablet [generic] 06/26 Inactiv e 2023 77730 11759 6 Calcium citrate 250 mg tablet [generic] Once daily TAKE 4 TABLETS (1000MG) BY MOUTH For SUPPLEMENT 500 MG 2023 Active 2023 69385 27033 6 Once daily By Mouth False Norvasc 5 mg tablet 7.5 mg By Mouth Once daily Hold medication if SBP <90 For HYPERTENSIVE HEART DISEASE WITHOUT HEART FAILURE 7.5 mg 06/30 Inactiv e 2023 34609 51132 1 Once daily By Mouth I11.9 False Norvasc 5 mg tablet 7.5 mg By Mouth Once daily Hold medication if SBP <90 For HYPERTENSIVE HEART DISEASE WITHOUT HEART FAILURE 7.5 mg 07/06 Inactiv e 2023 41803 67490 1 Once daily By Mouth I11.9 False Simethicone 125 mg capsule [generic] 2 capule By Mouth Twice daily as needed For bloating/gas pain 2 capule 2023 Active 2023 87696 57010 0 Twice daily as needed By Mouth False Cepacol Sore Throat (benzocaine -menthol) 15 mg-2.6 mg lozenges 2 lozenges By Mouth Every 6 hours as needed For sore throat 2 lozenge s 2023 Active 2023 02901 22729 6 Every 6 hours as needed By Mouth False Cefepime 1 gram solution for injection [generic] 1g Intramuscular Every 12 hours 1g intramuscular ly ever 12 hours For UTI 1g 07/06 Inactiv e 2023 32387 41959 4 Every 12 hours Intram uscula r False Cefepime 1 gram solution for injection [generic] 07/06 Inactiv e 2023 79594 69474 4 Cefepime 1 gram solution for injection [generic] 1g Intramuscular Every 12 hours 1g intramuscular ly ever 12 hours For UTI Reconstitute with 2.4 ML of NSS. 1g 2023 Active 2023 80219 90501 4 Every 12 hours Intram uscula r False Norvasc 5 mg tablet 07/06 Inactiv e 2023 76574 55750 1 I11.9 Norvasc 5 mg tablet 7.5 mg By Mouth Once daily Hold medication if SBP <90 For HYPERTENSIVE HEART DISEASE WITHOUT HEART FAILURE 7.5 mg 2023 Active 2023 44941 91787 1 Once daily By Mouth I11.9 False Nystatin 100,000 unit/gram topical cream [generic] 100,000 unit Topical As Needed For DX- EXCORIATION 100,000 unit 12/12 Inactiv e 2023 99726 56828 5 Topica l False Vicks Vaporub 4.7 %-1.2 %-2.6 % topical ointment 4.7-1.2-2.6 Topical 3 times a day As Needed For DX- CONGESTION 4.7-1.2 -2.6 12/12 Inactiv e 2023 00082 88698 1 3 times a day Topica l False Ketoconazol e 2 % shampoo [generic] APPLY SHAMPOO TOPICALLY TO SCALP DURING HAIR WASHINGDX: ELVIA DERM OF SCALP For DX- ELVIA DERM OF SCALP 12/12 Inactiv e 2023 99329 17052 4 Topica l False THERA SILICONE SKIN GUARD Topical Twice daily 1 APPLICATION TOPICALLY IN THE MORNING AND AT BEDTIME TO SCROTUM For DX- PREVENTION 2023 Active 2023 Twice daily Topica l False Selenium sulfide 2.5 % lotion [generic] 2.5 % Topical EVERY MONDAY, MONDAY AND MONDAY AFTER SHOWER For DANDRUFF 2.5 % 2023 Active 2023 09246 53558 4 3 times a week Topica l False Nystatin (bulk) 100 million unit powder [generic] 100 million Topical Twice daily as needed For EXOCORATION 100 million 12/20 Inactiv e 2023 93432 91870 1 Twice daily as needed Topica l False Ketoconazol e 2 % shampoo [generic] Once daily APPLY SHAMPOO TOPICALLY TO SCALP DURING HAIR WASHING ON SHOWER DAYS- LITTLE SAHA, SAT For ELVIA DERM OF SCAP 2 % 2023 Active 2023 15014 59578 4 Once daily Topica l False Nystatin 100,000 unit/gram topical cream [generic] 1 mague Topical Twice daily as needed For EXOCORATION 1 mague 06/05 Inactiv e 2023 03872 97308 5 Twice daily as needed Topica l False Nystatin 100,000 unit/gram topical powder [generic] 100,000 unit Topical Twice daily to scrotum with AM and PM care For Scrotal excoriation 100,000 unit 06/05 Inactiv e 2023 60312 41003 5 Twice daily Topica l False Problems [...] adjustment of urinary device 07/21/2023 Active Z79.01 prison (current) use of anticoagulants 07/21 Active N31.9 Neuromuscular dysfun ction of bladder, unspecified 07/21/2023 Active VITAL SIGNS Date Time Diastolic blood pressure Systolic blood pressure Body height Body weight Temperature SpO2 Blood Sugar Pulse Respirations 09201 130 46967 5 78.00 mm[Hg] - Sitting 152.00 mm[Hg] - Sitting 201 51945 1 87.00 mm[Hg] - Sitting 189.00 mm[Hg] - Sitting 202 69123 2 76.00 mm[Hg] - Sitting 136.00 mm[Hg] - Sitting 203 08987 2 259.80 NI 203 53110 5 93.00 mm[Hg] - Sitting 137.00 mm[Hg] - Sitting 204 60029 2 259.40 NI 34549 204 15339 1 78.00 mm[Hg] - Sitting 144.00 mm[Hg] - Sitting 205 62043 4 85.00 mm[Hg] - Sitting 142.00 mm[Hg] - Sitting 206 24248 9 76.00 mm[Hg] - Sitting 132.00 mm[Hg] - Sitting 208 83408 9 82.00 mm[Hg] - Sitting 128.00 mm[Hg] - Sitting 209 33473 2 78.00 mm[Hg] - Sitting 130.00 mm[Hg] - Sitting 210 46326 6 80.00 mm[Hg] - Sitting 132.00 mm[Hg] - Sitting 211 99181 5 78.00 mm[Hg] - Sitting 125.00 mm[Hg] - Sitting 28919 216 33046 1 254.10 NI 83730 216 78382 2 79.00 mm[Hg] - Sitting 157.00 mm[Hg] - Sitting 73 NI 254.10 NI 36.30 Tympanic 95.00 % 72.00/ min 16.00/min 21375 216 32244 4 98.80 Tympanic 40669 216 17880 2 78.00 mm[Hg] - Sitting 164.00 mm[Hg] - Sitting 14889 217 53641 3 98.20 Tympanic 84631 217 58011 5 73.00 mm[Hg] - Sitting 159.00 mm[Hg] - Sitting 12111 217 41070 9 98.40 Forehead Scan 16899 218 66736 3 97.90 Tympanic 46796 218 31243 5 77.00 mm[Hg] - Sitting 137.00 mm[Hg] - Sitting 67637 219 42133 0 97.70 Tympanic 15047 219 53223 6 97.60 Tympanic 10029 219 36947 4 76.00 mm[Hg] - Sitting 139.00 mm[Hg] - Sitting 20746 219 51496 4 97.80 Forehead Scan 61855 220 96458 9 97.90 Tympanic 75304 220 23557 9 76.00 mm[Hg] - Sitting 138.00 mm[Hg] - Sitting 64138 220 38897 6 98.10 Tympanic 59274 221 93974 5 67.00 mm[Hg] - Sitting 142.00 mm[Hg] - Sitting 28124 221 91864 8 98.20 Tympanic 79094 221 47527 0 98.30 Tympanic 46874 222 93872 7 98.20 Tympanic 35127 222 92330 8 97.90 Tympanic 96281 223 46472 3 98.20 Tympanic 07649 223 76834 3 98.00 Tympanic 64219 224 12183 0 59.00 mm[Hg] - Sitting 111.00 mm[Hg] - Sitting 98.40 Forehead Scan 95.00 % 56.00/ min 18.00/min 51123 224 29751 9 98.20 Forehead Scan 05513 224 22705 3 97.90 Tympanic 83939 225 42007 4 98.20 Tympanic 32222 225 25235 8 97.50 Forehead Scan 48753 228 92950 0 55.00 mm[Hg] - Sitting 118.00 mm[Hg] - Sitting 98.40 Tympanic 69.00/ min 34178 229 12028 8 78.00 mm[Hg] - Sitting 152.00 mm[Hg] - Sitting 15512 230 67167 0 62.00 mm[Hg] - Sitting 122.00 mm[Hg] [...]
--- OUTSIDE RECORDS SUMMARY | 2024-07-26 11:24 | External Medical Summary | Continuity Of Care Document ---
Author Name Unknown Address [address] [place] [address] Organization [facility] () Care Team Providers Care Right Of Way Manager Name Role Phone DO Pritchett Amy Primary Care Provider [phone] Allergies Allergy Reaction Start Date End Date Status AMINOGLYCOSIDES Active CIPRO Active GENTAMICIN Active NSAIDS (NON-STEROIDAL ANTI-INFLAMMATORY DRUG) 0 Active IBUPROFEN Active QUINOLONES Active VALIUM Active Medications Medication Instructions Dosage Start Date End Date Status Order Date Drug Code Frequency Route of Admin Diagnosis Code Substitutions Allowed Spikevax [id number](1 2y up)(PF) 50 mcg/0.5 mL intramuscul ar suspension [COVID [id number](12 up)(andu)(P F)] 0.5mL Intramuscular 1 time Monitory 15 Minutes post injection for adverse effects; record site/temp For COVID 19 PREVENTION 0.5mL 01/02 Inactiv e 2023 65141 05066 4 1 time Intram uscula r False [facility] - Nurse initials indicate verificatio n that [id number] vaccine was administere d by [facility] Representat jon 1 Intramuscular 1 time ( Indicate vaccine type) For vaccine 1 05/03 Inactiv e 2023 1 time Intram uscula r False Lisinopril 40 mg tablet [generic] TAKE ONE (1) TABLET BY MOUTH IN THE MORNING. For DX- HTN 1 2023 Active 2023 48500 24255 1 Once daily By Mouth False Tizanidine 2 mg tablet [generic] TAKE ONE (1) TABLET BY MOUTH ONCE DAILY For MUSCLE SPASM 1 2023 Active 2023 94425 69747 0 Once daily By Mouth M62.838 False Tamsulosin 0.4 mg capsule [generic] TAKE (1) CAPSULE BY MOUTH AT BEDTIME For SPASMS 1 2023 Active 2023 14033 35943 0 Once daily By Mouth False Aspirin 81 mg tablet Once daily 1 TABLET BY MOUTH IN THE MORNING For DX- CAD DO NOT CRUSH, CHEW OR BREAK 81 mg 06/12 Inactiv e 2023 Once daily By Mouth False Baclofen 20 mg tablet [generic] 20 mg By Mouth 4 times a day For DX- MUSCLE SPASMS 20 mg 12/12 Inactiv e 2023 84979 77340 1 4 times a day By Mouth False Calcium citrate 250 mg tablet Once daily 4 TABLET BY MOUTH For DX- SUPPLEMENT 250 mg calci 12/12 Inactiv e 2023 Once daily By Mouth False Co Q-10 100 mg capsule 100 mg By Mouth Once daily For DX- SUPPLEMENT 100 mg 06/20 Inactiv e 2023 57631 61360 5 Once daily By Mouth False Furosemide 20 mg tablet [generic] 20 mg By Mouth Once daily For DX-CHF 20 mg 12/12 Inactiv e 2023 73666 20969 0 Once daily By Mouth False Gabapentin 300 mg capsule [generic] 300 mg By Mouth 3 times a day For DX- NEUROPATHY 300 mg 12/12 Inactiv e 2023 13220 74380 4 3 times a day By Mouth False Loratadine 10 mg tablet [generic] 10 mg By Mouth Once daily For DX- ALLERGIES 10 mg 2023 Active 2023 91895 08959 1 Once daily By Mouth False Miralax 17 gram/dose oral powder 17 gram/dose By Mouth IN THE MORNING Mix 1 TABLESPOON IN 8 OZ OF FLUID HOLD FOR LOOSE STOOLS For DX- CONSTIPATION 17 gram/do se 12/12 Inactiv e 2023 35409 12020 0 Once daily By Mouth False Paroxetine 30 mg tablet [generic] 30 mg By Mouth Once daily For DX- DEPRESSION 30 mg 2023 00/00 /0000 Active 2023 19282 88684 3 Once daily By Mouth False Potassium citrate ER 15 mEq (1,620 mg) tablet,exte nded release [generic] 15 mEq By Mouth 3 times a day For DX- SUPPLEMENT/DI URETIC USE/ HYPOCITRAUIRA DO NOT CRUSH 15 mEq 12/12 Inactiv e 2023 00255 18038 1 3 times a day By Mouth [...] For DX- DANDRUFF 12/12 Inactiv e 2023 43043 39643 4 3 times a week Topica l False Acetaminoph en 325 mg tablet [generic] TAKE 2 TABS (650MG) BY MOUTH EVERY 4 HOURS NEEDED FOR TEMP >100 NOT TO EXCEED 3GM/24HRS TAKE 2 TABS (650MG) BY MOUTH EVERY 4 HOURS NEEDED FOR TEMP >100 NOT TO EXCEED 3GM/24HRS For DX-FEVER 2 12/12 Inactiv e 2023 33974 41785 0 By Mouth False MILK OF MAGNESIA ADMINISTER 30 ML BY MOUTH ONCE DAILY NEEDED FOR CONSTIPATION X3 DAYS WITH NO BM. For DX- CONSTIPATION 30ML 12/12 Inactiv e 2023 14323 90694 9 By Mouth False Enema Disposable 19 gram-7 gram/118 mL ADMINISTER ONE ENEMA RECTALLY ONCE DAILY NEEDED FOR CONSTIPATION ON DAY 6 OF NO BM For DX- CONSTIPATION 12/12 Inactiv e 2023 21137 58455 1 Rectal False TUMS EXTRA STR 750MG TAKE (1) TABLET BY MOUTH THREE TIMES DAILY NEEDED FOR INDIGESTION For DX- INDIGESTION 1 12/12 Inactiv e 2023 88877 33837 8 By Mouth False Vitamin D3 25 [...] CONSTIPATION 10 mg 12/12 Inactiv e 2023 07187 86687 1 Rectal False Melatonin 3 mg tablet [generic] 3 mg By Mouth As Needed For DX-INSOMMIA 3 mg 12/12 Inactiv e 2023 45649 21348 8 By Mouth False Hydrocortis one 1 % topical cream [generic] 1 % Topical As Needed For DX- PAIN 1 % 12/12 Inactiv e 2023 33189 44774 1 Topica l False HYDROCORTIS ONE/PARMOXI NE [...] 5-10 50 mg 12/20 Inactiv e 2023 12127 87441 0 Every 4 hours as needed By Mouth False Tylenol 325 mg tablet 325 mg By Mouth Every 4 hours as needed For DX- PAIN PRN FOR MILD PAIN, DO NOT EXCEED 3000MG APAP/24 HOURS 325 mg 12/20 Inactiv e 2023 79081 23598 0 Every 4 hours as needed By Mouth False Baclofen 20 mg tablet [generic] 20 mg By Mouth 4 times a day For MUSCLE SPASMS 20 mg 12/20 Inactiv e 2023 30631 73302 1 4 times a day By Mouth False Calcium citrate 250 mg tablet [generic] Once daily TAKE 4 TABLETS (1000MG) BY MOUTH For SUPPLEMENT 1000 MG 06/26 Inactiv e 2023 71091 69166 6 Once daily By Mouth False Dulcolax (bisacodyl) 10 mg rectal suppository 10 mg Rectal Once daily For CONSTIPATION *MAY HOLD FOR LOOSE STOOLS* 10 mg 2023 Active 2023 21440 98156 1 Once daily Rectal False Gabapentin 300 mg capsule [generic] 300 mg By Mouth 3 times a day For NEUROPATHY 300 mg 2023 Active 2023 10453 90149 4 3 times a day By Mouth False Potassium citrate ER 15 mEq (1,620 mg) tablet,exte nded release [generic] 15 mEq By Mouth 3 times a day For SUPPLEMENT/DI URETIC USE/HYPOCITRA URIA 15 mEq 06/11 Inactiv e 2023 63800 18818 1 3 times a day By Mouth False Potassium chloride ER 20 mEq tablet,exte nded release [generic] 20 mEq By Mouth 3 times a day *DO NOT CRUSH, CHEW OR BREAK* For SUPPLEMENT 20 mEq 12/18 Inactiv e 2023 51115 66727 1 3 times a day By Mouth False Tizanidine 4 mg tablet [generic] 4 mg By Mouth Once daily For MUSCLE SPASMS 4 mg 2023 Active 2023 72608 96263 0 Once daily By Mouth False Tylenol 325 mg tablet 2 tabs By Mouth Every 4 hours as needed For Fever >100 DO NOT EXCEED 3000 MG APAP/24 Hours 2 tabs 12/20 Inactiv e 2023 85565 35087 0 Every 4 hours as needed By Mouth False Dulcolax (bisacodyl) 10 mg rectal suppository Daily as needed For Constipation 1 sup 12/20 Inactiv e 2023 14441 87101 1 Daily as needed Rectal False Fleet Enema 19 gram-7 gram/118 mL 1 Rectal Daily as neededFor Constipation 1 12/20 Inactiv e 2023 86275 09112 6 Daily as needed Rectal False Milk of Magnesia 400 mg/5 mL oral suspension [Magnesium hydroxide] PRN 30ml By Mouth Daily as needed for constipation one time daily if no BM, on day 4 of no BM (PRN refer to instructions) For Constipation For Constipatioin 30ml 12/20 Inactiv e 2023 54725 14096 6 1 time By Mouth False Melatonin 3 mg tablet [generic] 3 mg By Mouth Once daily As Needed For INSOMNIA 3 mg 12/20 Inactiv e 2023 43992 19134 8 Once daily By Mouth False Problems [...] adjustment of urinary device 07/21/2023 Active 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 07/21 Active N31.9 Neuromuscular dysfun ction of bladder, unspecified 07/21/2023 Active VITAL SIGNS Date Time Diastolic blood pressure Systolic blood pressure Body height Body weight Temperature SpO2 Blood Sugar Pulse Respirations 128 76571 0 80.00 mm[Hg] - Sitting 154.00 mm[Hg] - Sitting 129 20540 3 83.00 mm[Hg] - Sitting 174.00 mm[Hg] - Sitting 130 64767 5 78.00 mm[Hg] - Sitting 152.00 mm[Hg] - Sitting 201 02540 1 87.00 mm[Hg] - Sitting 189.00 mm[Hg] - Sitting 202 12419 2 76.00 mm[Hg] - Sitting 136.00 mm[Hg] - Sitting 203 03863 2 259.80 NI 203 09426 5 93.00 mm[Hg] - Sitting 137.00 mm[Hg] - Sitting 204 13863 2 259.40 NI 204 37998 1 78.00 mm[Hg] - Sitting 144.00 mm[Hg] - Sitting 205 28338 4 85.00 mm[Hg] - Sitting 142.00 mm[Hg] - Sitting 206 25999 9 76.00 mm[Hg] - Sitting 132.00 mm[Hg] - Sitting 208 39280 9 82.00 mm[Hg] - Sitting 128.00 mm[Hg] - Sitting 209 94630 2 78.00 mm[Hg] - Sitting 130.00 mm[Hg] - Sitting 210 92042 6 80.00 mm[Hg] - Sitting 132.00 mm[Hg] - Sitting 211 70976 5 78.00 mm[Hg] - Sitting 125.00 mm[Hg] - Sitting 216 85335 1 254.10 NI 69091 216 63715 2 79.00 mm[Hg] - Sitting 157.00 mm[Hg] - Sitting 73 NI 254.10 NI 36.30 Tympanic 95.00 % 72.00/ min 16.00/min 76696 216 63109 4 98.80 Tympanic 24208 216 11544 2 78.00 mm[Hg] - Sitting 164.00 mm[Hg] - Sitting 73155 217 37963 3 98.20 Tympanic 32951 217 15606 5 73.00 mm[Hg] - Sitting 159.00 mm[Hg] - Sitting 40632 217 92535 9 98.40 Forehead Scan 54751 218 77103 3 97.90 Tympanic 86723 218 06014 5 77.00 mm[Hg] - Sitting 137.00 mm[Hg] - Sitting 09635 219 35728 0 97.70 Tympanic 05160 219 43971 6 97.60 Tympanic 80347 219 98919 4 76.00 mm[Hg] - Sitting 139.00 mm[Hg] - Sitting 40298 219 93803 4 97.80 Forehead Scan 28052 220 89099 9 97.90 Tympanic 93131 220 03476 9 76.00 mm[Hg] - Sitting 138.00 mm[Hg] - Sitting 65996 220 42758 6 98.10 Tympanic 75847 221 00694 5 67.00 mm[Hg] - Sitting 142.00 mm[Hg] - Sitting 27450 221 43268 8 98.20 Tympanic 01962 221 11139 0 98.30 Tympanic 65772 222 81194 7 98.20 Tympanic 82851 222 58192 8 97.90 Tympanic 63587 223 84596 3 98.20 Tympanic 98435 223 42175 3 98.00 Tympanic 01119 224 09641 0 59.00 mm[Hg] - Sitting 111.00 mm[Hg] - Sitting 98.40 Forehead Scan 95.00 % 56.00/ min 18.00/min 72424 224 38466 9 98.20 Forehead Scan 86936 224 13895 3 97.90 Tympanic 24478 225 01076 4 98.20 Tympanic 47168 225 76382 8 97.50 Forehead Scan 11902 228 37927 0 55.00 mm[Hg] - Sitting 118.00 mm[Hg] - Sitting 98.40 Tympanic 69.00/ min Immunizations Vaccine Date Status COVID-19 08/02/2020 [...]
--- OUTSIDE RECORDS SUMMARY | 2024-07-26 11:24 | External Medical Summary | Continuity Of Care Document ---
Author Name Unknown Address [address] [place] [address] Organization [facility] () Care Team Providers Care Central Office Supervisor Name Role Phone DO Pritchett Amy Primary Care Provider [phone] Allergies Allergy Reaction Start Date End Date Status AMINOGLYCOSIDES Active CIPRO Active GENTAMICIN Active NSAIDS (NON-STEROIDAL ANTI-INFLAMMATORY DRUG) 0 Active IBUPROFEN Active QUINOLONES Active VALIUM Active Medications Medication Instructions Dosage Start Date End Date Status Order Date Drug Code Frequency Route of Admin Diagnosis Code Substitutions Allowed Spikevax [id number](1 2y up)(PF) 50 mcg/0.5 mL intramuscul ar suspension [COVID [id number](12 up)(andu)(P F)] 0.5mL Intramuscular 1 time Monitory 15 Minutes post injection for adverse effects; record site/temp For COVID 19 PREVENTION 0.5mL 01/02 Inactiv e 2023 94992 75333 4 1 time Intram uscula r False [facility] - Nurse initials indicate verificatio n that [id number] vaccine was administere d by [facility] jon 1 Intramuscular 1 time ( Indicate vaccine type) For vaccine 1 05/03 Inactiv e 2023 1 time Intram uscula r False Lisinopril 40 mg tablet [generic] TAKE ONE (1) TABLET BY MOUTH IN THE MORNING. For DX- HTN 1 2023 Active 2023 04087 08441 1 Once daily By Mouth False Tizanidine 2 mg tablet [generic] TAKE ONE (1) TABLET BY MOUTH ONCE DAILY For MUSCLE SPASM 1 2023 Active 2023 42950 58141 0 Once daily By Mouth M62.838 False Tamsulosin 0.4 mg capsule [generic] TAKE (1) CAPSULE BY MOUTH AT BEDTIME For SPASMS 1 2023 Active 2023 13584 03499 0 Once daily By Mouth False Aspirin 81 mg tablet Once daily 1 TABLET BY MOUTH IN THE MORNING For DX- CAD DO NOT CRUSH, CHEW OR BREAK 81 mg 06/12 Inactiv e 2023 Once daily By Mouth False Baclofen 20 mg tablet [generic] 20 mg By Mouth 4 times a day For DX- MUSCLE SPASMS 20 mg 12/12 Inactiv e 2023 70642 69041 1 4 times a day By Mouth False Calcium citrate 250 mg tablet Once daily 4 TABLET BY MOUTH For DX- SUPPLEMENT 250 mg calci 12/12 Inactiv e 2023 Once daily By Mouth False Co Q-10 100 mg capsule 100 mg By Mouth Once daily For DX- SUPPLEMENT 100 mg 06/20 Inactiv e 2023 64593 30125 5 Once daily By Mouth False Furosemide 20 mg tablet [generic] 20 mg By Mouth Once daily For DX-CHF 20 mg 12/12 Inactiv e 2023 87322 60706 0 Once daily By Mouth False Gabapentin 300 mg capsule [generic] 300 mg By Mouth 3 times a day For DX- NEUROPATHY 300 mg 12/12 Inactiv e 2023 68964 48116 4 3 times a day By Mouth False Loratadine 10 mg tablet [generic] 10 mg By Mouth Once daily For DX- ALLERGIES 10 mg 2023 Active 2023 62328 90354 1 Once daily By Mouth False Miralax 17 gram/dose oral powder 17 gram/dose By Mouth IN THE MORNING Mix 1 TABLESPOON IN 8 OZ OF FLUID HOLD FOR LOOSE STOOLS For DX- CONSTIPATION 17 gram/do se 12/12 Inactiv e 2023 61540 07621 0 Once daily By Mouth False Paroxetine 30 mg tablet [generic] 30 mg By Mouth Once daily For DX- DEPRESSION 30 mg 2023 00/00 /0000 Active 2023 49100 37517 3 Once daily By Mouth False Potassium citrate ER 15 mEq (1,620 mg) tablet,exte nded release [generic] 15 mEq By Mouth 3 times a day For DX- SUPPLEMENT/DI URETIC USE/ HYPOCITRAUIRA DO NOT CRUSH 15 mEq 12/12 Inactiv e 2023 53697 53714 1 3 times a day By Mouth [...] For DX- DANDRUFF 12/12 Inactiv e 2023 20264 38621 4 3 times a week Topica l False Acetaminoph en 325 mg tablet [generic] TAKE 2 TABS (650MG) BY MOUTH EVERY 4 HOURS NEEDED FOR TEMP >100 NOT TO EXCEED 3GM/24HRS TAKE 2 TABS (650MG) BY MOUTH EVERY 4 HOURS NEEDED FOR TEMP >100 NOT TO EXCEED 3GM/24HRS For DX-FEVER 2 12/12 Inactiv e 2023 23511 62518 0 By Mouth False MILK OF MAGNESIA ADMINISTER 30 ML BY MOUTH ONCE DAILY NEEDED FOR CONSTIPATION X3 DAYS WITH NO BM. For DX- CONSTIPATION 30ML 12/12 Inactiv e 2023 72421 82752 9 By Mouth False Enema Disposable 19 gram-7 gram/118 mL ADMINISTER ONE ENEMA RECTALLY ONCE DAILY NEEDED FOR CONSTIPATION ON DAY 6 OF NO BM For DX- CONSTIPATION 12/12 Inactiv e 2023 53773 18182 1 Rectal False TUMS EXTRA STR 750MG TAKE (1) TABLET BY MOUTH THREE TIMES DAILY NEEDED FOR INDIGESTION For DX- INDIGESTION 1 12/12 Inactiv e 2023 30499 42006 8 By Mouth False Vitamin D3 25 [...] CONSTIPATION 10 mg 12/12 Inactiv e 2023 71664 30418 1 Rectal False Melatonin 3 mg tablet [generic] 3 mg By Mouth As Needed For DX-INSOMMIA 3 mg 12/12 Inactiv e 2023 55181 96674 8 By Mouth False Hydrocortis one 1 % topical cream [generic] 1 % Topical As Needed For DX- PAIN 1 % 12/12 Inactiv e 2023 30745 08469 1 Topica l False HYDROCORTIS ONE/PARMOXI NE [...] 5-10 50 mg 12/20 Inactiv e 2023 55632 67016 0 Every 4 hours as needed By Mouth False Tylenol 325 mg tablet 325 mg By Mouth Every 4 hours as needed For DX- PAIN PRN FOR MILD PAIN, DO NOT EXCEED 3000MG APAP/24 HOURS 325 mg 12/20 Inactiv e 2023 82408 52887 0 Every 4 hours as needed By Mouth False Baclofen 20 mg tablet [generic] 20 mg By Mouth 4 times a day For MUSCLE SPASMS 20 mg 12/20 Inactiv e 2023 34854 89879 1 4 times a day By Mouth False Calcium citrate 250 mg tablet [generic] Once daily TAKE 4 TABLETS (1000MG) BY MOUTH For SUPPLEMENT 1000 MG 06/26 Inactiv e 2023 70709 79865 6 Once daily By Mouth False Dulcolax (bisacodyl) 10 mg rectal suppository 10 mg Rectal Once daily For CONSTIPATION *MAY HOLD FOR LOOSE STOOLS* 10 mg 2023 Active 2023 91204 79184 1 Once daily Rectal False Gabapentin 300 mg capsule [generic] 300 mg By Mouth 3 times a day For NEUROPATHY 300 mg 2023 Active 2023 46861 31014 4 3 times a day By Mouth False Potassium citrate ER 15 mEq (1,620 mg) tablet,exte nded release [generic] 15 mEq By Mouth 3 times a day For SUPPLEMENT/DI URETIC USE/HYPOCITRA URIA 15 mEq 06/11 Inactiv e 2023 86251 06037 1 3 times a day By Mouth False Potassium chloride ER 20 mEq tablet,exte nded release [generic] 20 mEq By Mouth 3 times a day *DO NOT CRUSH, CHEW OR BREAK* For SUPPLEMENT 20 mEq 12/18 Inactiv e 2023 02099 38519 1 3 times a day By Mouth False Tizanidine 4 mg tablet [generic] 4 mg By Mouth Once daily For MUSCLE SPASMS 4 mg 2023 Active 2023 45054 93935 0 Once daily By Mouth False Tylenol 325 mg tablet 2 tabs By Mouth Every 4 hours as needed For Fever >100 DO NOT EXCEED 3000 MG APAP/24 Hours 2 tabs 12/20 Inactiv e 2023 37169 91816 0 Every 4 hours as needed By Mouth False Dulcolax (bisacodyl) 10 mg rectal suppository Daily as needed For Constipation 1 sup 12/20 Inactiv e 2023 51515 75901 1 Daily as needed Rectal False Fleet Enema 19 gram-7 gram/118 mL 1 Rectal Daily as neededFor Constipation 1 12/20 Inactiv e 2023 70003 99840 6 Daily as needed Rectal False Milk of Magnesia 400 mg/5 mL oral suspension [Magnesium hydroxide] PRN 30ml By Mouth Daily as needed for constipation one time daily if no BM, on day 4 of no BM (PRN refer to instructions) For Constipation For Constipatioin 30ml 12/20 Inactiv e 2023 57879 36393 6 1 time By Mouth False Melatonin 3 mg tablet [generic] 3 mg By Mouth Once daily As Needed For INSOMNIA 3 mg 12/20 Inactiv e 2023 86196 91769 8 Once daily By Mouth False Hydrocortis one 1 % topical cream [generic] 1 % Rectal Four times daily as needed For hemorroid pain 1 % 12/20 Inactiv e 2023 37354 76657 1 Four times daily as needed Rectal False X-STGH ANTACID 750MG CHEW TAKE (1) TABLET BY MOUTH THREE TIMES DAILY NEEDED FOR INDIGESTION 12/20 Inactiv e 2023 99042 84212 4 Three times daily as needed Saline Mist 0.65 % nasal spray aerosol 0.65 % Nares Four times daily as needed For DRYNESS 0.65 % 12/20 Inactiv e 2023 79493 93082 8 Four times daily as needed Nares False Vicks Vaporub 4.7 %-1.2 %-2.6 % topical ointment Apply topically to chest Three times daily as needed For CONGESTION 4.7-1.2 -2.6 12/20 Inactiv e 2023 90751 56877 1 Three times daily as needed Topica l False VITAMIN D3 2000U CAP TAKE ONE (1) CAPSULE BY MOUTH DAILY* DO NOT CRUSH, CHEW OR BREAK* For Supplement 1 capsule 12/19 Inactiv e 2023 53385 69436 0 Once daily By Mouth False Potassium chloride ER 20 mEq tablet,exte nded release(par t/cryst) [generic] TAKE (1) TABLET BY MOUTH THREE TIMES DAILY (MORNING, AFTERNOON, EVENING)*DO NOT CRUSH, CHEW, OR BREAK* For SUPPLEMENT 20 MEQ 06/11 Inactiv e 2023 42178 81661 5 3 times a day By Mouth False Aspirin 81 mg tablet,camron yed release [generic] TAKE ONE (1) TABLET BY MOUTH ONCE DAILY*DO NOT CRUSH, CHEW OR BREAK* For CAD 81 MG 12/22 Inactiv e 2023 04102 51419 0 Once daily By Mouth False Furosemide 20 mg tablet [generic] TAKE 1 AND 1/2 TABLETS (30MG) BY MOUTH ONCE DAILY For CHF 30mg 2023 Active 2023 21273 51031 1 Once daily By Mouth False Polyethylen e glycol 3350 17 gram/dose oral powder [generic] MIX 17 GRAMS (1 CAPFUL) IN 60Z OF LIQUID AND DRINK BY MOUTH ONCE DAILY *HOLD FOR LOOSE STOOLS* For constipation 17 g 2023 Active 2023 34900 81644 3 Once daily By Mouth False Vitamin D3 50 mcg (2,000 unit) capsule Once daily TAKE ONE (1) CAPSULE BY MOUTH DAILY* DO NOT CRUSH, CHEW OR BREAK* For Supplement 1 capsule 02/07 Inactiv e 2023 86048 54535 2 Once daily By Mouth False Fleet Enema 19 gram-7 gram/118 mL 1 Rectal Daily as neededFor Constipation 1 2023 0000 Active 2023 33002 55961 6 Daily as needed Rectal False Tums E-X 300 mg (as calcium carbonate 750 mg) chewable tablet 1 tab By Mouth TAKE (1) TABLET BY MOUTH THREE TIMES DAILY NEEDED FOR INDIGESTION 1 tab 202300 /0000 Active 2023 80939 71681 1 Three times daily as needed By Mouth False Tylenol 325 mg tablet 2 tabs By Mouth Every 4 hours as needed For Fever >100 DO NOT EXCEED 3000 MG APAP/24 Hours 2 tabs 202300 /0000 Active 2023 14350 56776 0 Every 4 hours as needed By Mouth False Vicks Vaporub 4.7 %-1.2 %-2.6 % topical ointment Apply topically to chest Three times daily as needed For CONGESTION topical 202300 Active 2023 93318 57921 1 Three times daily as needed Topica l False Tylenol 325 mg tablet 2 tabs By Mouth Every 4 hours as needed For DX- PAIN PRN FOR MILD PAIN, DO NOT EXCEED 3000MG APAP/24 HOURS 2 tabs 202300 Active 2023 92233 86568 0 Every 4 hours as needed By Mouth False Tramadol 50 mg tablet [generic] 1 tab By Mouth Every 4 hours as needed For DX- PAIN 5-10 1 tab 03/10 Inactiv e 2023 81302 80357 0 Every 4 hours as needed By Mouth False Saline Mist 0.65 % nasal spray aerosol 2 sprays Nares Four times daily as needed For DRYNESS 2 sprays 202300 / Active 2023 97242 96818 8 Four times daily as needed Nares False Dulcolax (bisacodyl) 10 mg rectal suppository Daily as needed For Constipation 1 sup 202300 / Active 2023 32684 20270 1 Daily as needed Rectal False Hydrocortis one-pramoxi ne 1 %-1 % rectal cream [generic] 1 mague Rectal Four times daily as needed For hemorroid pain 1 mague 202300 /0000 Active 2023 25802 95736 4 Four times daily as needed Rectal False Melatonin 3 mg tablet [generic] 1 tab By Mouth At bedtime as needed For INSOMNIA 1 tab 12/24 Inactiv e 2023 05849 45373 8 At bedtime as needed By Mouth False Milk of Magnesia 400 mg/5 mL oral suspension 30ml By Mouth Daily as needed Daily as needed for constipation one time daily if no BM, on day 4 of no BM (PRN refer to instructions) For Constipation For Constipatioin 30ml 2023 Active 2023 28754 94838 2 Daily as needed By Mouth False Baclofen 20 mg tablet [generic] 20 mg By Mouth 4 times a day For MUSCLE SPASMS 20 mg 2023 Active 2023 07210 51761 1 4 times a day By Mouth False Melatonin 3 mg tablet [generic] 1 tab By Mouth At bedtime as needed For INSOMNIA 1 tab 2023 Active 2023 14076 13416 8 At bedtime as needed By Mouth False Bactrim DS 800 mg-160 mg tablet 1 tab By Mouth Twice daily For URINARY TRACT INFECTION, SITE NOT SPECIFIED 1 tab 01/06 Inactiv e 2023 57476 13710 1 Twice daily By Mouth N39.0 False Cefdinir 300 mg capsule [generic] 300 mg By Mouth Twice daily For UTI 300 mg 01/07 Inactiv e 2023 51908 54183 0 Twice daily By Mouth False Cefdinir 300 mg capsule [generic] 300 mg By Mouth Twice daily For UTI 300 mg 01/17 Inactiv e 2023 39142 71081 0 Twice daily By Mouth False Zyrtec 10 mg tablet 10 mg By Mouth Once daily For sinus congestion 10 mg 01/22 Inactiv e 2023 81224 21796 0 Once daily By Mouth False Tobramycin 0.3 %-dexametha sone 0.1 % eye drops,suspe nsion [generic] 0.3-0.1 % Left Eye 4 times a day For eye infection 0.3-0.1 % 02/05 Inactiv e 2023 65701 04113 5 4 times a day Left Eye False Fluconazole 150 mg tablet [generic] 150 mg By Mouth 1 time For yeast infection 150 mg 02/15 Inactiv e 2023 20875 68391 2 1 time By Mouth False Tramadol 50 mg tablet [generic] 1 tab By Mouth Every 4 hours as needed For DX- PAIN 5-10 1 tab 2023 00/00 /0000 Active 2023 43412 35906 0 Every 4 hours as needed By Mouth False Tobramycin 0.3 %-dexametha sone 0.1 % eye drops,suspe nsion [generic] 1 drop Left Eye 4 times a day For Inflammation of left eye 1 drop 05/08 Inactiv e 2023 93221 40768 5 4 times a day Left Eye False Voltaren Arthritis Pain 1 % topical gel 2 gm Topical Twice daily to rigth shoulder for 2 weeks For pain 2 gm 05/08 Inactiv e 2023 85684 47622 1 Twice daily Topica l False Chlorthalid one 25 mg tablet [generic] 12.5mg By Mouth Once daily For HTN 12.5mg 05/06 Inactiv e 2023 47159 19550 0 Once daily By Mouth False Chlorthalid one 25 mg tablet [generic] 12.5mg By Mouth Once daily For HTN 12.5mg 05/07 Inactiv e 2023 83622 12222 0 Once daily By Mouth False Chlorthalid one 25 mg tablet [generic] 05/07 Inactiv e 2023 80475 55492 0 Chlorthalid one 25 mg tablet [generic] 12.5mg By Mouth Once daily For HTN 12.5mg 06/26 Inactiv e 2023 35127 38312 0 Once daily By Mouth False Norvasc 5 mg tablet 5mg By Mouth Once daily, hold medication if systolic is less than 90 For HYPERTENSIVE HEART DISEASE WITHOUT HEART FAILURE 5mg 06/03 Inactiv e 2023 99157 12274 1 Once daily By Mouth I11.9 False Norvasc 5 mg tablet 5mg By Mouth Once daily, hold medication if systolic is less than 90 For HYPERTENSIVE HEART DISEASE WITHOUT HEART FAILURE 5mg 06/03 Inactiv e 2023 06014 96513 1 Once daily By Mouth I11.9 False Norvasc 5 mg tablet 5mg By Mouth Once daily, hold medication if systolic is less than 90 For HYPERTENSIVE HEART DISEASE WITHOUT HEART FAILURE 5mg 06/26 Inactiv e 2023 89970 58847 1 Once daily By Mouth I11.9 False [...] 10 mg 2023 00/00 /0000 Active 2023 61837 45047 1 Once daily By Mouth False DISCONTINUE [...] CAD 81 mg 06/14 Inactiv e 2023 19588 05281 9 Once daily By Mouth False Aspirin 81 mg tablet,camron yed release [generic] 06/14 Inactiv e 2023 53102 67664 9 Aspirin 81 mg tablet,camron yed release [generic] 81 mg By Mouth Once daily Do not crush, chew, or break For CAD 81 mg 06/154 Inactiv e 2023 72921 00851 9 Once daily By Mouth False Cefpodoxime 200 mg tablet [generic] 200mg By Mouth Twice daily For UTI 200mg 07/04 Inactiv e 2023 21404 34347 0 Twice daily By Mouth False Calcium citrate 250 mg tablet [generic] 06/26 Inactiv e 2023 28884 06958 6 Calcium citrate 250 mg tablet [generic] Once daily TAKE 4 TABLETS (1000MG) BY MOUTH For SUPPLEMENT 500 MG 2023 Active 2023 93918 95389 6 Once daily By Mouth False Norvasc 5 mg tablet 7.5 mg By Mouth Once daily Hold medication if SBP <90 For HYPERTENSIVE HEART DISEASE WITHOUT HEART FAILURE 7.5 mg 06/30 Inactiv e 2023 11789 79528 1 Once daily By Mouth I11.9 False Norvasc 5 mg tablet 7.5 mg By Mouth Once daily Hold medication if SBP <90 For HYPERTENSIVE HEART DISEASE WITHOUT HEART FAILURE 7.5 mg 07/06 Inactiv e 2023 53877 31180 1 Once daily By Mouth I11.9 False Simethicone 125 mg capsule [generic] 2 capule By Mouth Twice daily as needed For bloating/gas pain 2 capule 2023 Active 2023 73576 87812 0 Twice daily as needed By Mouth False Cepacol Sore Throat (benzocaine -menthol) 15 mg-2.6 mg lozenges 2 lozenges By Mouth Every 6 hours as needed For sore throat 2 lozenge s 2023 Active 2023 48688 68257 6 Every 6 hours as needed By Mouth False Cefepime 1 gram solution for injection [generic] 1g Intramuscular Every 12 hours 1g intramuscular ly ever 12 hours For UTI 1g 07/06 Inactiv e 2023 16270 71067 4 Every 12 hours Intram uscula r False Cefepime 1 gram solution for injection [generic] 07/06 Inactiv e 2023 34502 80712 4 Cefepime 1 gram solution for injection [generic] 1g Intramuscular Every 12 hours 1g intramuscular ly ever 12 hours For UTI Reconstitute with 2.4 ML of NSS. 1g 07/08 Inactiv e 2023 39127 07428 4 Every 12 hours Intram uscula r False Norvasc 5 mg tablet 07/06 Inactiv e 2023 37387 75422 1 I11.9 Norvasc 5 mg tablet 7.5 mg By Mouth Once daily Hold medication if SBP <90 For HYPERTENSIVE HEART DISEASE WITHOUT HEART FAILURE 7.5 mg 2023 000000 Active 2023 20668 63561 1 Once daily By Mouth I11.9 False Cefepime 1 gram solution for injection [generic] 07/08 Inactiv e 2023 55538 02601 4 Cefepime 1 gram solution for injection [generic] 1g Intramuscular Every 12 hours 1g intramuscular ly ever 12 hours For UTI Reconstitute with 2.4 ML of NSS. 1g 07/08 Inactiv e 2023 85926 25126 4 Every 12 hours Intram uscula r False Cefepime 1 gram solution for injection [generic] 07/08 Inactiv e 2023 12279 23628 4 Cefepime 1 gram solution for injection [generic] 1g Intramuscular Every 12 hours 1g intramuscular ly ever 12 hours For UTI Reconstitute with 2.4 ML of NSS. 1g 07/11 Active 2023 44853 54145 4 Every 12 hours Intram uscula r False Nystatin 100,000 unit/gram topical cream [generic] 100,000 unit Topical As Needed For DX- EXCORIATION 100,000 unit 12/12 Inactiv e 2023 31744 09808 5 Topica l False Vicks Vaporub 4.7 %-1.2 %-2.6 % topical ointment 4.7-1.2-2.6 Topical 3 times a day As Needed For DX- CONGESTION 4.7-1.2 -2.6 12/12 Inactiv e 2023 28018 78877 1 3 times a day Topica l False Ketoconazol e 2 % shampoo [generic] APPLY SHAMPOO TOPICALLY TO SCALP DURING HAIR WASHINGDX: ELVIA DERM OF SCALP For DX- ELVIA DERM OF SCALP 12/12 Inactiv e 2023 61635 12344 4 Topica l False THERA SILICONE SKIN GUARD Topical Twice daily 1 APPLICATION TOPICALLY IN THE MORNING AND AT BEDTIME TO SCROTUM For DX- PREVENTION 202300 Active 2023 Twice daily Topica l False Selenium sulfide 2.5 % lotion [generic] 2.5 % Topical EVERY MONDAY, MONDAY AND MONDAY AFTER SHOWER For DANDRUFF 2.5 % 202300 Active 2023 91960 41768 4 3 times a week Topica l False Nystatin (bulk) 100 million unit powder [generic] 100 million Topical Twice daily as needed For EXOCORATION 100 million 12/20 Inactiv e 2023 48838 12412 1 Twice daily as needed Topica l False Ketoconazol e 2 % shampoo [generic] Once daily APPLY SHAMPOO TOPICALLY TO SCALP DURING HAIR WASHING ON SHOWER DAYS- , , MON For ELVIA DERM OF SCAP 2 % 202300 Active 2023 63893 00951 4 Once daily Topica l False Nystatin 100,000 unit/gram topical cream [generic] 1 mague Topical Twice daily as needed For EXOCORATION 1 mague 06/05 Inactiv e 2023 33159 37043 5 Twice daily as needed Topica l False Nystatin 100,000 unit/gram topical powder [generic] 100,000 unit Topical Twice daily to scrotum with AM and PM care For Scrotal excoriation 100,000 unit 06/05 Inactiv e 2023 00093 36923 5 Twice daily Topica l False Problems [...] Temperature SpO2 Blood Sugar Pulse Respirations 130 54750 5 78.00 mm[Hg] - Sitting 152.00 mm[Hg] - Sitting 201 71298 1 87.00 mm[Hg] - Sitting 189.00 mm[Hg] - Sitting 202 62228 2 76.00 mm[Hg] - Sitting 136.00 mm[Hg] - Sitting 203 96758 2 259.80 NI 203 81181 5 93.00 mm[Hg] - Sitting 137.00 mm[Hg] - Sitting 204 07304 2 259.40 NI 204 34600 1 78.00 mm[Hg] - Sitting 144.00 mm[Hg] - Sitting 68727 205 69517 4 85.00 mm[Hg] - Sitting 142.00 mm[Hg] - Sitting 84766 206 79232 9 76.00 mm[Hg] - Sitting 132.00 mm[Hg] - Sitting 25144 208 19494 9 82.00 mm[Hg] - Sitting 128.00 mm[Hg] - Sitting 47273 209 95468 2 78.00 mm[Hg] - Sitting 130.00 mm[Hg] - Sitting 19243 210 31884 6 80.00 mm[Hg] - Sitting 132.00 mm[Hg] - Sitting 18809 211 57458 5 78.00 mm[Hg] - Sitting 125.00 mm[Hg] - Sitting 33034 216 93031 1 254.10 NI 59341 216 18325 2 79.00 mm[Hg] - Sitting 157.00 mm[Hg] - Sitting 73 NI 254.10 NI 36.30 Tympanic 95.00 % 72.00/ min 16.00/min 93906 216 30724 4 98.80 Tympanic 96138 216 98007 2 78.00 mm[Hg] - Sitting 164.00 mm[Hg] - Sitting 78385 217 06738 3 98.20 Tympanic 42794 217 20915 5 73.00 mm[Hg] - Sitting 159.00 mm[Hg] - Sitting 17963 217 66169 9 98.40 Forehead Scan 25640 218 42628 3 97.90 Tympanic 68101 218 34279 5 77.00 mm[Hg] - Sitting 137.00 mm[Hg] - Sitting 26328 219 20974 0 97.70 Tympanic 33839 219 74070 6 97.60 Tympanic 48393 219 67600 4 76.00 mm[Hg] - Sitting 139.00 mm[Hg] - Sitting 82106 219 70489 4 97.80 Forehead Scan 11684 220 61826 9 97.90 Tympanic 56498 220 19804 9 76.00 mm[Hg] - Sitting 138.00 mm[Hg] - Sitting 46476 220 64892 6 98.10 Tympanic 42727 221 50201 5 67.00 mm[Hg] - Sitting 142.00 mm[Hg] - Sitting 40717 221 03569 8 98.20 Tympanic 43487 221 99862 0 98.30 Tympanic 30171 222 80830 7 98.20 Tympanic 88162 222 22096 8 97.90 Tympanic 98703 223 84803 3 98.20 Tympanic 78975 223 46993 3 98.00 Tympanic 92415 224 10830 0 59.00 mm[Hg] - Sitting 111.00 mm[Hg] - Sitting 98.40 Forehead Scan 95.00 % 56.00/ min 18.00/min 11335 224 07277 9 98.20 Forehead Scan 96110 224 85483 3 97.90 Tympanic 95041 225 87525 4 98.20 Tympanic 82648 225 68926 8 97.50 Forehead Scan 13696 228 47219 0 55.00 mm[Hg] - Sitting 118.00 mm[Hg] - Sitting 98.40 Tympanic 69.00/ min 84788 229 19065 8 78.00 mm[Hg] - Sitting 152.00 mm[Hg] - Sitting 14603 230 08052 0 62.00 mm[Hg] - Sitting 122.00 mm[Hg] [...]
--- OUTSIDE RECORDS SUMMARY | 2024-07-26 11:24 | External Medical Summary | Continuity Of Care Document ---
Author Name Unknown Address [address] [place] [address] Organization [facility] () Care Team Providers Care [place] Name Role Phone DO Pritchett Amy Primary Care Provider [phone] Allergies Allergy Reaction Start Date End Date Status AMINOGLYCOSIDES Active CIPRO Active GENTAMICIN Active NSAIDS (NON-STEROIDAL ANTI-INFLAMMATORY DRUG) 0 Active IBUPROFEN Active QUINOLONES Active VALIUM Active Medications Medication Instructions Dosage Start Date End Date Status Order Date Drug Code Frequency Route of Admin Diagnosis Code Substitutions Allowed Spikevax [id number](1 2y up)(PF) 50 mcg/0.5 mL intramuscul ar suspension [COVID [id number](12 up)(andu)(P F)] 0.5mL Intramuscular 1 time Monitory 15 Minutes post injection for adverse effects; record site/temp For COVID 19 PREVENTION 0.5mL 01/02 Inactiv e 2023 25229 57956 4 1 time Intram uscula r False [facility] - Nurse initials indicate verificatio n that [id number] vaccine was administere d by [facility] 1 Intramuscular 1 time ( Indicate vaccine type) For vaccine 1 05/03 Inactiv e 2023 1 time Intram uscula r False Lisinopril 40 mg tablet [generic] TAKE ONE (1) TABLET BY MOUTH IN THE MORNING. For DX- HTN 1 2023 Active 2023 63664 14546 1 Once daily By Mouth False Tizanidine 2 mg tablet [generic] TAKE ONE (1) TABLET BY MOUTH ONCE DAILY For MUSCLE SPASM 1 2023 Active 2023 74216 02434 0 Once daily By Mouth M62.838 False Tamsulosin 0.4 mg capsule [generic] TAKE (1) CAPSULE BY MOUTH AT BEDTIME For SPASMS 1 2023 Active 2023 38413 44558 0 Once daily By Mouth False Aspirin 81 mg tablet Once daily 1 TABLET BY MOUTH IN THE MORNING For DX- CAD DO NOT CRUSH, CHEW OR BREAK 81 mg 06/12 Inactiv e 2023 Once daily By Mouth False Baclofen 20 mg tablet [generic] 20 mg By Mouth 4 times a day For DX- MUSCLE SPASMS 20 mg 12/12 Inactiv e 2023 99997 53811 1 4 times a day By Mouth False Calcium citrate 250 mg tablet Once daily 4 TABLET BY MOUTH For DX- SUPPLEMENT 250 mg calci 12/12 Inactiv e 2023 Once daily By Mouth False Co Q-10 100 mg capsule 100 mg By Mouth Once daily For DX- SUPPLEMENT 100 mg 06/20 Inactiv e 2023 66441 14826 5 Once daily By Mouth False Furosemide 20 mg tablet [generic] 20 mg By Mouth Once daily For DX-CHF 20 mg 12/12 Inactiv e 2023 93283 43488 0 Once daily By Mouth False Gabapentin 300 mg capsule [generic] 300 mg By Mouth 3 times a day For DX- NEUROPATHY 300 mg 12/12 Inactiv e 2023 89017 82541 4 3 times a day By Mouth False Loratadine 10 mg tablet [generic] 10 mg By Mouth Once daily For DX- ALLERGIES 10 mg 2023 Active 2023 21838 41038 1 Once daily By Mouth False Miralax 17 gram/dose oral powder 17 gram/dose By Mouth IN THE MORNING Mix 1 TABLESPOON IN 8 OZ OF FLUID HOLD FOR LOOSE STOOLS For DX- CONSTIPATION 17 gram/do se 12/12 Inactiv e 2023 47656 70319 0 Once daily By Mouth False Paroxetine 30 mg tablet [generic] 30 mg By Mouth Once daily For DX- DEPRESSION 30 mg 2023 00/00 /0000 Active 2023 50247 08730 3 Once daily By Mouth False Potassium citrate ER 15 mEq (1,620 mg) tablet,exte nded release [generic] 15 mEq By Mouth 3 times a day For DX- SUPPLEMENT/DI URETIC USE/ HYPOCITRAUIRA DO NOT CRUSH 15 mEq 12/12 Inactiv e 2023 68303 35458 1 3 times a day By Mouth [...] For DX- DANDRUFF 12/12 Inactiv e 2023 31084 77507 4 3 times a week Topica l False Acetaminoph en 325 mg tablet [generic] TAKE 2 TABS (650MG) BY MOUTH EVERY 4 HOURS NEEDED FOR TEMP >100 NOT TO EXCEED 3GM/24HRS TAKE 2 TABS (650MG) BY MOUTH EVERY 4 HOURS NEEDED FOR TEMP >100 NOT TO EXCEED 3GM/24HRS For DX-FEVER 2 12/12 Inactiv e 2023 51958 11415 0 By Mouth False MILK OF MAGNESIA ADMINISTER 30 ML BY MOUTH ONCE DAILY NEEDED FOR CONSTIPATION X3 DAYS WITH NO BM. For DX- CONSTIPATION 30ML 12/12 Inactiv e 2023 29667 59640 9 By Mouth False Enema Disposable 19 gram-7 gram/118 mL ADMINISTER ONE ENEMA RECTALLY ONCE DAILY NEEDED FOR CONSTIPATION ON DAY 6 OF NO BM For DX- CONSTIPATION 12/12 Inactiv e 2023 58903 49705 1 Rectal False TUMS EXTRA STR 750MG TAKE (1) TABLET BY MOUTH THREE TIMES DAILY NEEDED FOR INDIGESTION For DX- INDIGESTION 1 12/12 Inactiv e 2023 78155 37215 8 By Mouth False Vitamin D3 25 [...] CONSTIPATION 10 mg 12/12 Inactiv e 2023 85969 54336 1 Rectal False Melatonin 3 mg tablet [generic] 3 mg By Mouth As Needed For DX-INSOMMIA 3 mg 12/12 Inactiv e 2023 04876 12036 8 By Mouth False Hydrocortis one 1 % topical cream [generic] 1 % Topical As Needed For DX- PAIN 1 % 12/12 Inactiv e 2023 22724 45173 1 Topica l False HYDROCORTIS ONE/PARMOXI NE [...] 5-10 50 mg 12/20 Inactiv e 2023 71498 54423 0 Every 4 hours as needed By Mouth False Tylenol 325 mg tablet 325 mg By Mouth Every 4 hours as needed For DX- PAIN PRN FOR MILD PAIN, DO NOT EXCEED 3000MG APAP/24 HOURS 325 mg 12/20 Inactiv e 2023 70836 54140 0 Every 4 hours as needed By Mouth False Baclofen 20 mg tablet [generic] 20 mg By Mouth 4 times a day For MUSCLE SPASMS 20 mg 12/20 Inactiv e 2023 71892 63359 1 4 times a day By Mouth False Calcium citrate 250 mg tablet [generic] Once daily TAKE 4 TABLETS (1000MG) BY MOUTH For SUPPLEMENT 1000 MG 06/26 Inactiv e 2023 37745 73464 6 Once daily By Mouth False Dulcolax (bisacodyl) 10 mg rectal suppository 10 mg Rectal Once daily For CONSTIPATION *MAY HOLD FOR LOOSE STOOLS* 10 mg 2023 Active 2023 93474 47585 1 Once daily Rectal False Gabapentin 300 mg capsule [generic] 300 mg By Mouth 3 times a day For NEUROPATHY 300 mg 2023 Active 2023 14285 66440 4 3 times a day By Mouth False Potassium citrate ER 15 mEq (1,620 mg) tablet,exte nded release [generic] 15 mEq By Mouth 3 times a day For SUPPLEMENT/DI URETIC USE/HYPOCITRA URIA 15 mEq 06/11 Inactiv e 2023 74426 23396 1 3 times a day By Mouth False Potassium chloride ER 20 mEq tablet,exte nded release [generic] 20 mEq By Mouth 3 times a day *DO NOT CRUSH, CHEW OR BREAK* For SUPPLEMENT 20 mEq 12/18 Inactiv e 2023 69324 52371 1 3 times a day By Mouth False Tizanidine 4 mg tablet [generic] 4 mg By Mouth Once daily For MUSCLE SPASMS 4 mg 2023 Active 2023 42319 31325 0 Once daily By Mouth False Tylenol 325 mg tablet 2 tabs By Mouth Every 4 hours as needed For Fever >100 DO NOT EXCEED 3000 MG APAP/24 Hours 2 tabs 12/20 Inactiv e 2023 46726 84248 0 Every 4 hours as needed By Mouth False Dulcolax (bisacodyl) 10 mg rectal suppository Daily as needed For Constipation 1 sup 12/20 Inactiv e 2023 63394 34705 1 Daily as needed Rectal False Fleet Enema 19 gram-7 gram/118 mL 1 Rectal Daily as neededFor Constipation 1 12/20 Inactiv e 2023 66575 04852 6 Daily as needed Rectal False Milk of Magnesia 400 mg/5 mL oral suspension [Magnesium hydroxide] PRN 30ml By Mouth Daily as needed for constipation one time daily if no BM, on day 4 of no BM (PRN refer to instructions) For Constipation For Constipatioin 30ml 12/20 Inactiv e 2023 05811 43532 6 1 time By Mouth False Melatonin 3 mg tablet [generic] 3 mg By Mouth Once daily As Needed For INSOMNIA 3 mg 12/20 Inactiv e 2023 30472 16141 8 Once daily By Mouth False Hydrocortis one 1 % topical cream [generic] 1 % Rectal Four times daily as needed For hemorroid pain 1 % 12/20 Inactiv e 2023 36755 17366 1 Four times daily as needed Rectal False X-STGH ANTACID 750MG CHEW TAKE (1) TABLET BY MOUTH THREE TIMES DAILY NEEDED FOR INDIGESTION 12/20 Inactiv e 2023 90568 66558 4 Three times daily as needed Saline Mist 0.65 % nasal spray aerosol 0.65 % Nares Four times daily as needed For DRYNESS 0.65 % 12/20 Inactiv e 2023 87243 48851 8 Four times daily as needed Nares False Vicks Vaporub 4.7 %-1.2 %-2.6 % topical ointment Apply topically to chest Three times daily as needed For CONGESTION 4.7-1.2 -2.6 12/20 Inactiv e 2023 31971 88249 1 Three times daily as needed Topica l False VITAMIN D3 2000U CAP TAKE ONE (1) CAPSULE BY MOUTH DAILY* DO NOT CRUSH, CHEW OR BREAK* For Supplement 1 capsule 12/19 Inactiv e 2023 29157 24696 0 Once daily By Mouth False Potassium chloride ER 20 mEq tablet,exte nded release(par t/cryst) [generic] TAKE (1) TABLET BY MOUTH THREE TIMES DAILY (MORNING, AFTERNOON, EVENING)*DO NOT CRUSH, CHEW, OR BREAK* For SUPPLEMENT 20 MEQ 06/11 Inactiv e 2023 62276 40647 5 3 times a day By Mouth False Aspirin 81 mg tablet,camron yed release [generic] TAKE ONE (1) TABLET BY MOUTH ONCE DAILY*DO NOT CRUSH, CHEW OR BREAK* For CAD 81 MG 12/22 Inactiv e 2023 10141 25580 0 Once daily By Mouth False Furosemide 20 mg tablet [generic] TAKE 1 AND 1/2 TABLETS (30MG) BY MOUTH ONCE DAILY For CHF 30mg 2023 Active 2023 41357 09387 1 Once daily By Mouth False Polyethylen e glycol 3350 17 gram/dose oral powder [generic] MIX 17 GRAMS (1 CAPFUL) IN 60Z OF LIQUID AND DRINK BY MOUTH ONCE DAILY *HOLD FOR LOOSE STOOLS* For constipation 17 g 2023 Active 2023 68300 53399 3 Once daily By Mouth False Vitamin D3 50 mcg (2,000 unit) capsule Once daily TAKE ONE (1) CAPSULE BY MOUTH DAILY* DO NOT CRUSH, CHEW OR BREAK* For Supplement 1 capsule 02/07 Inactiv e 2023 38547 40977 2 Once daily By Mouth False Fleet Enema 19 gram-7 gram/118 mL 1 Rectal Daily as neededFor Constipation 1 2023 0000 Active 2023 49465 16213 6 Daily as needed Rectal False Tums E-X 300 mg (as calcium carbonate 750 mg) chewable tablet 1 tab By Mouth TAKE (1) TABLET BY MOUTH THREE TIMES DAILY NEEDED FOR INDIGESTION 1 tab 202300 /0000 Active 2023 05493 03628 1 Three times daily as needed By Mouth False Tylenol 325 mg tablet 2 tabs By Mouth Every 4 hours as needed For Fever >100 DO NOT EXCEED 3000 MG APAP/24 Hours 2 tabs 202300 /0000 Active 2023 76845 54030 0 Every 4 hours as needed By Mouth False Vicks Vaporub 4.7 %-1.2 %-2.6 % topical ointment Apply topically to chest Three times daily as needed For CONGESTION topical 202300 Active 2023 64701 09529 1 Three times daily as needed Topica l False Tylenol 325 mg tablet 2 tabs By Mouth Every 4 hours as needed For DX- PAIN PRN FOR MILD PAIN, DO NOT EXCEED 3000MG APAP/24 HOURS 2 tabs 202300 Active 2023 74226 59302 0 Every 4 hours as needed By Mouth False Tramadol 50 mg tablet [generic] 1 tab By Mouth Every 4 hours as needed For DX- PAIN 5-10 1 tab 03/10 Inactiv e 2023 24765 53942 0 Every 4 hours as needed By Mouth False Saline Mist 0.65 % nasal spray aerosol 2 sprays Nares Four times daily as needed For DRYNESS 2 sprays 202300 / Active 2023 27489 86621 8 Four times daily as needed Nares False Dulcolax (bisacodyl) 10 mg rectal suppository Daily as needed For Constipation 1 sup 202300 / Active 2023 55301 80240 1 Daily as needed Rectal False Hydrocortis one-pramoxi ne 1 %-1 % rectal cream [generic] 1 mague Rectal Four times daily as needed For hemorroid pain 1 mague 202300 /0000 Active 2023 11658 49445 4 Four times daily as needed Rectal False Melatonin 3 mg tablet [generic] 1 tab By Mouth At bedtime as needed For INSOMNIA 1 tab 12/24 Inactiv e 2023 07850 81759 8 At bedtime as needed By Mouth False Milk of Magnesia 400 mg/5 mL oral suspension 30ml By Mouth Daily as needed Daily as needed for constipation one time daily if no BM, on day 4 of no BM (PRN refer to instructions) For Constipation For Constipatioin 30ml 2023 Active 2023 73428 81322 2 Daily as needed By Mouth False Baclofen 20 mg tablet [generic] 20 mg By Mouth 4 times a day For MUSCLE SPASMS 20 mg 2023 Active 2023 82695 76951 1 4 times a day By Mouth False Melatonin 3 mg tablet [generic] 1 tab By Mouth At bedtime as needed For INSOMNIA 1 tab 2023 Active 2023 46245 40768 8 At bedtime as needed By Mouth False Bactrim DS 800 mg-160 mg tablet 1 tab By Mouth Twice daily For URINARY TRACT INFECTION, SITE NOT SPECIFIED 1 tab 01/06 Inactiv e 2023 31743 10738 1 Twice daily By Mouth N39.0 False Cefdinir 300 mg capsule [generic] 300 mg By Mouth Twice daily For UTI 300 mg 01/07 Inactiv e 2023 44777 37231 0 Twice daily By Mouth False Cefdinir 300 mg capsule [generic] 300 mg By Mouth Twice daily For UTI 300 mg 01/17 Inactiv e 2023 02436 40117 0 Twice daily By Mouth False Zyrtec 10 mg tablet 10 mg By Mouth Once daily For sinus congestion 10 mg 01/22 Inactiv e 2023 96352 41826 0 Once daily By Mouth False Tobramycin 0.3 %-dexametha sone 0.1 % eye drops,suspe nsion [generic] 0.3-0.1 % Left Eye 4 times a day For eye infection 0.3-0.1 % 02/05 Inactiv e 2023 42119 64043 5 4 times a day Left Eye False Fluconazole 150 mg tablet [generic] 150 mg By Mouth 1 time For yeast infection 150 mg 02/15 Inactiv e 2023 39957 65854 2 1 time By Mouth False Tramadol 50 mg tablet [generic] 1 tab By Mouth Every 4 hours as needed For DX- PAIN 5-10 1 tab 2023 00/00 /0000 Active 2023 65767 47641 0 Every 4 hours as needed By Mouth False Tobramycin 0.3 %-dexametha sone 0.1 % eye drops,suspe nsion [generic] 1 drop Left Eye 4 times a day For Inflammation of left eye 1 drop 05/08 Inactiv e 2023 83864 29889 5 4 times a day Left Eye False Voltaren Arthritis Pain 1 % topical gel 2 gm Topical Twice daily to rigth shoulder for 2 weeks For pain 2 gm 05/08 Inactiv e 2023 23854 43999 1 Twice daily Topica l False Chlorthalid one 25 mg tablet [generic] 12.5mg By Mouth Once daily For HTN 12.5mg 05/06 Inactiv e 2023 56576 92817 0 Once daily By Mouth False Chlorthalid one 25 mg tablet [generic] 12.5mg By Mouth Once daily For HTN 12.5mg 05/07 Inactiv e 2023 72786 18284 0 Once daily By Mouth False Chlorthalid one 25 mg tablet [generic] 05/07 Inactiv e 2023 80092 56373 0 Chlorthalid one 25 mg tablet [generic] 12.5mg By Mouth Once daily For HTN 12.5mg 06/26 Inactiv e 2023 97325 79325 0 Once daily By Mouth False Norvasc 5 mg tablet 5mg By Mouth Once daily, hold medication if systolic is less than 90 For HYPERTENSIVE HEART DISEASE WITHOUT HEART FAILURE 5mg 06/03 Inactiv e 2023 58358 58562 1 Once daily By Mouth I11.9 False Norvasc 5 mg tablet 5mg By Mouth Once daily, hold medication if systolic is less than 90 For HYPERTENSIVE HEART DISEASE WITHOUT HEART FAILURE 5mg 06/03 Inactiv e 2023 06913 15263 1 Once daily By Mouth I11.9 False Norvasc 5 mg tablet 5mg By Mouth Once daily, hold medication if systolic is less than 90 For HYPERTENSIVE HEART DISEASE WITHOUT HEART FAILURE 5mg 06/26 Inactiv e 2023 14182 87434 1 Once daily By Mouth I11.9 False [...] 10 mg 2023 00/00 /0000 Active 2023 40055 66815 1 Once daily By Mouth False DISCONTINUE [...] CAD 81 mg 06/14 Inactiv e 2023 90559 63038 9 Once daily By Mouth False Aspirin 81 mg tablet,camron yed release [generic] 06/14 Inactiv e 2023 16070 07284 9 Aspirin 81 mg tablet,camron yed release [generic] 81 mg By Mouth Once daily Do not crush, chew, or break For CAD 81 mg 06/154 Inactiv e 2023 03141 15597 9 Once daily By Mouth False Cefpodoxime 200 mg tablet [generic] 200mg By Mouth Twice daily For UTI 200mg 07/04 Inactiv e 2023 23212 57637 0 Twice daily By Mouth False Calcium citrate 250 mg tablet [generic] 06/26 Inactiv e 2023 03887 08307 6 Calcium citrate 250 mg tablet [generic] Once daily TAKE 4 TABLETS (1000MG) BY MOUTH For SUPPLEMENT 500 MG 2023 Active 2023 76053 26023 6 Once daily By Mouth False Norvasc 5 mg tablet 7.5 mg By Mouth Once daily Hold medication if SBP <90 For HYPERTENSIVE HEART DISEASE WITHOUT HEART FAILURE 7.5 mg 06/30 Inactiv e 2023 96015 40219 1 Once daily By Mouth I11.9 False Norvasc 5 mg tablet 7.5 mg By Mouth Once daily Hold medication if SBP <90 For HYPERTENSIVE HEART DISEASE WITHOUT HEART FAILURE 7.5 mg 07/06 Inactiv e 2023 69225 86847 1 Once daily By Mouth I11.9 False Simethicone 125 mg capsule [generic] 2 capule By Mouth Twice daily as needed For bloating/gas pain 2 capule 2023 Active 2023 89456 54681 0 Twice daily as needed By Mouth False Cepacol Sore Throat (benzocaine -menthol) 15 mg-2.6 mg lozenges 2 lozenges By Mouth Every 6 hours as needed For sore throat 2 lozenge s 2023 Active 2023 04255 53377 6 Every 6 hours as needed By Mouth False Cefepime 1 gram solution for injection [generic] 1g Intramuscular Every 12 hours 1g intramuscular ly ever 12 hours For UTI 1g 07/06 Inactiv e 2023 32508 80729 4 Every 12 hours Intram uscula r False Cefepime 1 gram solution for injection [generic] 07/06 Inactiv e 2023 35845 39288 4 Cefepime 1 gram solution for injection [generic] 1g Intramuscular Every 12 hours 1g intramuscular ly ever 12 hours For UTI Reconstitute with 2.4 ML of NSS. 1g 2023 Active 2023 12797 92502 4 Every 12 hours Intram uscula r False Norvasc 5 mg tablet 07/06 Inactiv e 2023 63134 98447 1 I11.9 Norvasc 5 mg tablet 7.5 mg By Mouth Once daily Hold medication if SBP <90 For HYPERTENSIVE HEART DISEASE WITHOUT HEART FAILURE 7.5 mg 2023 Active 2023 29705 57328 1 Once daily By Mouth I11.9 False Nystatin 100,000 unit/gram topical cream [generic] 100,000 unit Topical As Needed For DX- EXCORIATION 100,000 unit 12/12 Inactiv e 2023 56457 27223 5 Topica l False Vicks Vaporub 4.7 %-1.2 %-2.6 % topical ointment 4.7-1.2-2.6 Topical 3 times a day As Needed For DX- CONGESTION 4.7-1.2 -2.6 12/12 Inactiv e 2023 05510 48597 1 3 times a day Topica l False Ketoconazol e 2 % shampoo [generic] APPLY SHAMPOO TOPICALLY TO SCALP DURING HAIR WASHINGDX: ELVIA DERM OF SCALP For DX- ELVIA DERM OF SCALP 12/12 Inactiv e 2023 12974 45033 4 Topica l False THERA SILICONE SKIN GUARD Topical Twice daily 1 APPLICATION TOPICALLY IN THE MORNING AND AT BEDTIME TO SCROTUM For DX- PREVENTION 2023 Active 2023 Twice daily Topica l False Selenium sulfide 2.5 % lotion [generic] 2.5 % Topical EVERY MONDAY, MONDAY AND MONDAY AFTER SHOWER For DANDRUFF 2.5 % 2023 Active 2023 00452 59120 4 3 times a week Topica l False Nystatin (bulk) 100 million unit powder [generic] 100 million Topical Twice daily as needed For EXOCORATION 100 million 12/20 Inactiv e 2023 90754 34022 1 Twice daily as needed Topica l False Ketoconazol e 2 % shampoo [generic] Once daily APPLY SHAMPOO TOPICALLY TO SCALP DURING HAIR WASHING ON SHOWER DAYS- LITTLE SAHA, SAT For ELVIA DERM OF SCAP 2 % 2023 Active 2023 18685 06491 4 Once daily Topica l False Nystatin 100,000 unit/gram topical cream [generic] 1 mague Topical Twice daily as needed For EXOCORATION 1 mague 06/05 Inactiv e 2023 45120 16839 5 Twice daily as needed Topica l False Nystatin 100,000 unit/gram topical powder [generic] 100,000 unit Topical Twice daily to scrotum with AM and PM care For Scrotal excoriation 100,000 unit 06/05 Inactiv e 2023 69133 51011 5 Twice daily Topica l False Problems [...] Temperature SpO2 Blood Sugar Pulse Respirations 129 88477 3 83.00 mm[Hg] - Sitting 174.00 mm[Hg] - Sitting 130 12084 5 78.00 mm[Hg] - Sitting 152.00 mm[Hg] - Sitting 201 78824 1 87.00 mm[Hg] - Sitting 189.00 mm[Hg] - Sitting 202 81651 2 76.00 mm[Hg] - Sitting 136.00 mm[Hg] - Sitting 203 91815 2 259.80 NI 203 02510 5 93.00 mm[Hg] - Sitting 137.00 mm[Hg] - Sitting 204 84305 2 259.40 NI 61317 204 48669 1 78.00 mm[Hg] - Sitting 144.00 mm[Hg] - Sitting 205 34169 4 85.00 mm[Hg] - Sitting 142.00 mm[Hg] - Sitting 206 91659 9 76.00 mm[Hg] - Sitting 132.00 mm[Hg] - Sitting 208 30508 9 82.00 mm[Hg] - Sitting 128.00 mm[Hg] - Sitting 209 14300 2 78.00 mm[Hg] - Sitting 130.00 mm[Hg] - Sitting 210 83211 6 80.00 mm[Hg] - Sitting 132.00 mm[Hg] - Sitting 211 29570 5 78.00 mm[Hg] - Sitting 125.00 mm[Hg] - Sitting 216 88600 1 254.10 NI 40666 216 83011 2 79.00 mm[Hg] - Sitting 157.00 mm[Hg] - Sitting 73 NI 254.10 NI 36.30 Tympanic 95.00 % 72.00/ min 16.00/min 13254 216 03801 4 98.80 Tympanic 90127 216 26636 2 78.00 mm[Hg] - Sitting 164.00 mm[Hg] - Sitting 15583 217 10421 3 98.20 Tympanic 80978 217 80691 5 73.00 mm[Hg] - Sitting 159.00 mm[Hg] - Sitting 59624 217 88080 9 98.40 Forehead Scan 36316 218 65560 3 97.90 Tympanic 64599 218 81259 5 77.00 mm[Hg] - Sitting 137.00 mm[Hg] - Sitting 07542 219 31028 0 97.70 Tympanic 90817 219 57716 6 97.60 Tympanic 77493 219 34300 4 76.00 mm[Hg] - Sitting 139.00 mm[Hg] - Sitting 51243 219 61486 4 97.80 Forehead Scan 36337 220 42151 9 97.90 Tympanic 22654 220 41790 9 76.00 mm[Hg] - Sitting 138.00 mm[Hg] - Sitting 16107 220 05475 6 98.10 Tympanic 66850 221 55183 5 67.00 mm[Hg] - Sitting 142.00 mm[Hg] - Sitting 52715 221 33302 8 98.20 Tympanic 85909 221 14870 0 98.30 Tympanic 07002 222 98152 7 98.20 Tympanic 30263 222 21734 8 97.90 Tympanic 31901 223 76813 3 98.20 Tympanic 64221 223 97811 3 98.00 Tympanic 73392 224 89971 0 59.00 mm[Hg] - Sitting 111.00 mm[Hg] - Sitting 98.40 Forehead Scan 95.00 % 56.00/ min 18.00/min 06947 224 43560 9 98.20 Forehead Scan 44564 224 25364 3 97.90 Tympanic 89337 225 82516 4 98.20 Tympanic 40611 225 13707 8 97.50 Forehead Scan 21185 228 80792 0 55.00 mm[Hg] - Sitting 118.00 mm[Hg] [...]
--- OUTSIDE RECORDS SUMMARY | 2024-07-26 11:24 | External Medical Summary | Continuity Of Care Document ---
Author Name Unknown Address [address] [place] [address] Organization [facility] () Care Team Providers Care Cast Iron Dipper Name Role Phone DO Pritchett Amy Primary Care Provider [phone] Allergies Allergy Reaction Start Date End Date Status AMINOGLYCOSIDES Active CIPRO Active GENTAMICIN Active NSAIDS (NON-STEROIDAL ANTI-INFLAMMATORY DRUG) 0 Active IBUPROFEN Active QUINOLONES Active VALIUM Active Medications Medication Instructions Dosage Start Date End Date Status Order Date Drug Code Frequency Route of Admin Diagnosis Code Substitutions Allowed Spikevax 8875-6907(1 2y up)(PF) 50 mcg/0.5 mL intramuscul ar suspension [COVID sat57-10(12 up)(andu)(P F)] 0.5mL Intramuscular 1 time Monitory 15 Minutes post injection for adverse effects; record site/temp For COVID 19 PREVENTION 0.5mL 01/02 Inactiv e 2023 22448 04948 4 1 time Intram uscula r False [facility] - Nurse initials indicate verificatio n that [id number] vaccine was administere d by [facility] jon 1 Intramuscular 1 time ( Indicate vaccine type) For vaccine 1 05/03 Inactiv e 2023 1 time Intram uscula r False Lisinopril 40 mg tablet [generic] TAKE ONE (1) TABLET BY MOUTH IN THE MORNING. For DX- HTN 1 2023 Active 2023 08945 26781 1 Once daily By Mouth False Tizanidine 2 mg tablet [generic] TAKE ONE (1) TABLET BY MOUTH ONCE DAILY For MUSCLE SPASM 1 2023 Active 2023 56236 12967 0 Once daily By Mouth M62.838 False Tamsulosin 0.4 mg capsule [generic] TAKE (1) CAPSULE BY MOUTH AT BEDTIME For SPASMS 1 2023 Active 2023 56383 66387 0 Once daily By Mouth False Aspirin 81 mg tablet Once daily 1 TABLET BY MOUTH IN THE MORNING For DX- CAD DO NOT CRUSH, CHEW OR BREAK 81 mg 06/12 Inactiv e 2023 Once daily By Mouth False Baclofen 20 mg tablet [generic] 20 mg By Mouth 4 times a day For DX- MUSCLE SPASMS 20 mg 12/12 Inactiv e 2023 18964 00528 1 4 times a day By Mouth False Calcium citrate 250 mg tablet Once daily 4 TABLET BY MOUTH For DX- SUPPLEMENT 250 mg calci 12/12 Inactiv e 2023 Once daily By Mouth False Co Q-10 100 mg capsule 100 mg By Mouth Once daily For DX- SUPPLEMENT 100 mg 06/20 Inactiv e 2023 74428 89163 5 Once daily By Mouth False Furosemide 20 mg tablet [generic] 20 mg By Mouth Once daily For DX-CHF 20 mg 12/12 Inactiv e 2023 39749 18045 0 Once daily By Mouth False Gabapentin 300 mg capsule [generic] 300 mg By Mouth 3 times a day For DX- NEUROPATHY 300 mg 12/12 Inactiv e 2023 32025 28524 4 3 times a day By Mouth False Loratadine 10 mg tablet [generic] 10 mg By Mouth Once daily For DX- ALLERGIES 10 mg 2023 Active 2023 99042 63723 1 Once daily By Mouth False Miralax 17 gram/dose oral powder 17 gram/dose By Mouth IN THE MORNING Mix 1 TABLESPOON IN 8 OZ OF FLUID HOLD FOR LOOSE STOOLS For DX- CONSTIPATION 17 gram/do se 12/12 Inactiv e 2023 12465 97736 0 Once daily By Mouth False Paroxetine 30 mg tablet [generic] 30 mg By Mouth Once daily For DX- DEPRESSION 30 mg 2023 00/00 /0000 Active 2023 31141 41246 3 Once daily By Mouth False Potassium citrate ER 15 mEq (1,620 mg) tablet,exte nded release [generic] 15 mEq By Mouth 3 times a day For DX- SUPPLEMENT/DI URETIC USE/ HYPOCITRAUIRA DO NOT CRUSH 15 mEq 12/12 Inactiv e 2023 90900 07614 1 3 times a day By Mouth [...] For DX- DANDRUFF 12/12 Inactiv e 2023 93384 99218 4 3 times a week Topica l False Acetaminoph en 325 mg tablet [generic] TAKE 2 TABS (650MG) BY MOUTH EVERY 4 HOURS NEEDED FOR TEMP >100 NOT TO EXCEED 3GM/24HRS TAKE 2 TABS (650MG) BY MOUTH EVERY 4 HOURS NEEDED FOR TEMP >100 NOT TO EXCEED 3GM/24HRS For DX-FEVER 2 12/12 Inactiv e 2023 36665 99018 0 By Mouth False MILK OF MAGNESIA ADMINISTER 30 ML BY MOUTH ONCE DAILY NEEDED FOR CONSTIPATION X3 DAYS WITH NO BM. For DX- CONSTIPATION 30ML 12/12 Inactiv e 2023 82036 97709 9 By Mouth False Enema Disposable 19 gram-7 gram/118 mL ADMINISTER ONE ENEMA RECTALLY ONCE DAILY NEEDED FOR CONSTIPATION ON DAY 6 OF NO BM For DX- CONSTIPATION 12/12 Inactiv e 2023 20657 90148 1 Rectal False TUMS EXTRA STR 750MG TAKE (1) TABLET BY MOUTH THREE TIMES DAILY NEEDED FOR INDIGESTION For DX- INDIGESTION 1 12/12 Inactiv e 2023 66257 16573 8 By Mouth False Vitamin D3 25 [...] CONSTIPATION 10 mg 12/12 Inactiv e 2023 28050 43370 1 Rectal False Melatonin 3 mg tablet [generic] 3 mg By Mouth As Needed For DX-INSOMMIA 3 mg 12/12 Inactiv e 2023 65092 51864 8 By Mouth False Hydrocortis one 1 % topical cream [generic] 1 % Topical As Needed For DX- PAIN 1 % 12/12 Inactiv e 2023 66822 96057 1 Topica l False HYDROCORTIS ONE/PARMOXI NE [...] 5-10 50 mg 12/20 Inactiv e 2023 61411 77574 0 Every 4 hours as needed By Mouth False Tylenol 325 mg tablet 325 mg By Mouth Every 4 hours as needed For DX- PAIN PRN FOR MILD PAIN, DO NOT EXCEED 3000MG APAP/24 HOURS 325 mg 12/20 Inactiv e 2023 00720 75859 0 Every 4 hours as needed By Mouth False Baclofen 20 mg tablet [generic] 20 mg By Mouth 4 times a day For MUSCLE SPASMS 20 mg 12/20 Inactiv e 2023 52065 34157 1 4 times a day By Mouth False Calcium citrate 250 mg tablet [generic] Once daily TAKE 4 TABLETS (1000MG) BY MOUTH For SUPPLEMENT 1000 MG 06/26 Inactiv e 2023 54487 08246 6 Once daily By Mouth False Dulcolax (bisacodyl) 10 mg rectal suppository 10 mg Rectal Once daily For CONSTIPATION *MAY HOLD FOR LOOSE STOOLS* 10 mg 2023 Active 2023 77230 92831 1 Once daily Rectal False Gabapentin 300 mg capsule [generic] 300 mg By Mouth 3 times a day For NEUROPATHY 300 mg 2023 Active 2023 79865 78321 4 3 times a day By Mouth False Potassium citrate ER 15 mEq (1,620 mg) tablet,exte nded release [generic] 15 mEq By Mouth 3 times a day For SUPPLEMENT/DI URETIC USE/HYPOCITRA URIA 15 mEq 06/11 Inactiv e 2023 32156 72582 1 3 times a day By Mouth False Potassium chloride ER 20 mEq tablet,exte nded release [generic] 20 mEq By Mouth 3 times a day *DO NOT CRUSH, CHEW OR BREAK* For SUPPLEMENT 20 mEq 12/18 Inactiv e 2023 84238 58514 1 3 times a day By Mouth False Tizanidine 4 mg tablet [generic] 4 mg By Mouth Once daily For MUSCLE SPASMS 4 mg 2023 Active 2023 61178 28551 0 Once daily By Mouth False Tylenol 325 mg tablet 2 tabs By Mouth Every 4 hours as needed For Fever >100 DO NOT EXCEED 3000 MG APAP/24 Hours 2 tabs 12/20 Inactiv e 2023 18347 70595 0 Every 4 hours as needed By Mouth False Dulcolax (bisacodyl) 10 mg rectal suppository Daily as needed For Constipation 1 sup 12/20 Inactiv e 2023 98336 47393 1 Daily as needed Rectal False Fleet Enema 19 gram-7 gram/118 mL 1 Rectal Daily as neededFor Constipation 1 12/20 Inactiv e 2023 16885 96017 6 Daily as needed Rectal False Problems [...] adjustment of urinary device 07/21/2023 Active 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00 mm[Hg] - Sitting 137.00 mm[Hg] - Sitting 62989 204 90807 2 259.40 NI 44114 204 53817 1 78.00 mm[Hg] - Sitting 144.00 mm[Hg] - Sitting 71455 205 03761 4 85.00 mm[Hg] - Sitting 142.00 mm[Hg] - Sitting 47266 206 27713 9 76.00 mm[Hg] - Sitting 132.00 mm[Hg] - Sitting 05236 208 45644 9 82.00 mm[Hg] - Sitting 128.00 mm[Hg] - Sitting 54693 209 87332 2 78.00 mm[Hg] - Sitting 130.00 mm[Hg] - Sitting 40260 210 44612 6 80.00 mm[Hg] - Sitting 132.00 mm[Hg] - Sitting 05812 211 91411 5 78.00 mm[Hg] - Sitting 125.00 mm[Hg] - Sitting 07841 216 76742 1 254.10 NI 82036 216 23753 2 79.00 mm[Hg] - Sitting 157.00 mm[Hg] - Sitting 73 NI 254.10 NI 36.30 Tympanic 95.00 % 72.00/ min 16.00/min 12756 216 38190 4 98.80 Tympanic 09374 216 96255 2 78.00 mm[Hg] - Sitting 164.00 mm[Hg] - Sitting 46654 217 22768 3 98.20 Tympanic 76552 217 84225 5 73.00 mm[Hg] - Sitting 159.00 mm[Hg] - Sitting 44396 217 88870 9 98.40 Forehead Scan 20359 218 76735 3 97.90 Tympanic 46341 218 62868 5 77.00 mm[Hg] - Sitting 137.00 mm[Hg] - Sitting 29888 219 15239 0 97.70 Tympanic 89986 219 50101 6 97.60 Tympanic 92291 219 34964 4 76.00 mm[Hg] - Sitting 139.00 mm[Hg] - Sitting 49240 219 27588 4 97.80 Forehead Scan 96294 220 93636 9 97.90 Tympanic Immunizations Vaccine Date Status COVID-19 08/02/2020 [...]
--- OUTSIDE RECORDS SUMMARY | 2024-07-26 11:25 | External Medical Summary | Continuity Of Care Document ---
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 Name Role Phone DO Pritchett Amy Primary Care Provider [phone] Allergies Allergy Reaction Start Date End Date Status AMINOGLYCOSIDES Active CIPRO Active GENTAMICIN Active NSAIDS (NON-STEROIDAL ANTI-INFLAMMATORY DRUG) 0 Active IBUPROFEN Active QUINOLONES Active VALIUM Active Medications Medication Instructions Dosage Start Date End Date Status Order Date Drug Code Frequency Route of Admin Diagnosis Code Substitutions Allowed Spikevax [id number](1 2y up)(PF) 50 mcg/0.5 mL intramuscul ar suspension [COVID qnu12-73(12 up)(andu)(P F)] 0.5mL Intramuscular 1 time Monitory 15 Minutes post injection for adverse effects; record site/temp For COVID 19 PREVENTION 0.5mL 01/02 Inactiv e 2023 95894 42370 4 1 time Intram uscula r False [facility] - Nurse initials indicate verificatio n that [id number] vaccine was administere d by [facility]at jon 1 Intramuscular 1 time ( Indicate vaccine type) For vaccine 1 05/03 Inactiv e 2023 1 time Intram uscula r False Lisinopril 40 mg tablet [generic] TAKE ONE (1) TABLET BY MOUTH IN THE MORNING. For DX- HTN 1 2023 Active 2023 36358 39369 1 Once daily By Mouth False Tizanidine 2 mg tablet [generic] TAKE ONE (1) TABLET BY MOUTH ONCE DAILY For MUSCLE SPASM 1 2023 Active 2023 10974 79368 0 Once daily By Mouth M62.838 False Tamsulosin 0.4 mg capsule [generic] TAKE (1) CAPSULE BY MOUTH AT BEDTIME For SPASMS 1 2023 Active 2023 69927 21787 0 Once daily By Mouth False Aspirin 81 mg tablet Once daily 1 TABLET BY MOUTH IN THE MORNING For DX- CAD DO NOT CRUSH, CHEW OR BREAK 81 mg 06/12 Inactiv e 2023 Once daily By Mouth False Baclofen 20 mg tablet [generic] 20 mg By Mouth 4 times a day For DX- MUSCLE SPASMS 20 mg 12/12 Inactiv e 2023 58038 15502 1 4 times a day By Mouth False Calcium citrate 250 mg tablet Once daily 4 TABLET BY MOUTH For DX- SUPPLEMENT 250 mg calci 12/12 Inactiv e 2023 Once daily By Mouth False Co Q-10 100 mg capsule 100 mg By Mouth Once daily For DX- SUPPLEMENT 100 mg 06/20 Inactiv e 2023 27279 24547 5 Once daily By Mouth False Furosemide 20 mg tablet [generic] 20 mg By Mouth Once daily For DX-CHF 20 mg 12/12 Inactiv e 2023 75376 10036 0 Once daily By Mouth False Gabapentin 300 mg capsule [generic] 300 mg By Mouth 3 times a day For DX- NEUROPATHY 300 mg 12/12 Inactiv e 2023 75088 74719 4 3 times a day By Mouth False Loratadine 10 mg tablet [generic] 10 mg By Mouth Once daily For DX- ALLERGIES 10 mg 2023 Active 2023 17657 21081 1 Once daily By Mouth False Miralax 17 gram/dose oral powder 17 gram/dose By Mouth IN THE MORNING Mix 1 TABLESPOON IN 8 OZ OF FLUID HOLD FOR LOOSE STOOLS For DX- CONSTIPATION 17 gram/do se 12/12 Inactiv e 2023 92540 38746 0 Once daily By Mouth False Paroxetine 30 mg tablet [generic] 30 mg By Mouth Once daily For DX- DEPRESSION 30 mg 2023 00/00 /0000 Active 2023 36527 63091 3 Once daily By Mouth False Potassium citrate ER 15 mEq (1,620 mg) tablet,exte nded release [generic] 15 mEq By Mouth 3 times a day For DX- SUPPLEMENT/DI URETIC USE/ HYPOCITRAUIRA DO NOT CRUSH 15 mEq 12/12 Inactiv e 2023 63119 54128 1 3 times a day By Mouth [...] For DX- DANDRUFF 12/12 Inactiv e 2023 98659 16812 4 3 times a week Topica l False Acetaminoph en 325 mg tablet [generic] TAKE 2 TABS (650MG) BY MOUTH EVERY 4 HOURS NEEDED FOR TEMP >100 NOT TO EXCEED 3GM/24HRS TAKE 2 TABS (650MG) BY MOUTH EVERY 4 HOURS NEEDED FOR TEMP >100 NOT TO EXCEED 3GM/24HRS For DX-FEVER 2 12/12 Inactiv e 2023 31332 09024 0 By Mouth False MILK OF MAGNESIA ADMINISTER 30 ML BY MOUTH ONCE DAILY NEEDED FOR CONSTIPATION X3 DAYS WITH NO BM. For DX- CONSTIPATION 30ML 12/12 Inactiv e 2023 93600 95069 9 By Mouth False Enema Disposable 19 gram-7 gram/118 mL ADMINISTER ONE ENEMA RECTALLY ONCE DAILY NEEDED FOR CONSTIPATION ON DAY 6 OF NO BM For DX- CONSTIPATION 12/12 Inactiv e 2023 95796 65365 1 Rectal False TUMS EXTRA STR 750MG TAKE (1) TABLET BY MOUTH THREE TIMES DAILY NEEDED FOR INDIGESTION For DX- INDIGESTION 1 12/12 Inactiv e 2023 05670 79286 8 By Mouth False Vitamin D3 25 [...] CONSTIPATION 10 mg 12/12 Inactiv e 2023 70711 18854 1 Rectal False Melatonin 3 mg tablet [generic] 3 mg By Mouth As Needed For DX-INSOMMIA 3 mg 12/12 Inactiv e 2023 02661 16420 8 By Mouth False Hydrocortis one 1 % topical cream [generic] 1 % Topical As Needed For DX- PAIN 1 % 12/12 Inactiv e 2023 33027 37783 1 Topica l False HYDROCORTIS ONE/PARMOXI NE [...] 5-10 50 mg 12/20 Inactiv e 2023 25364 58266 0 Every 4 hours as needed By Mouth False Tylenol 325 mg tablet 325 mg By Mouth Every 4 hours as needed For DX- PAIN PRN FOR MILD PAIN, DO NOT EXCEED 3000MG APAP/24 HOURS 325 mg 12/20 Inactiv e 2023 89108 16506 0 Every 4 hours as needed By Mouth False Baclofen 20 mg tablet [generic] 20 mg By Mouth 4 times a day For MUSCLE SPASMS 20 mg 12/20 Inactiv e 2023 87826 53667 1 4 times a day By Mouth False Calcium citrate 250 mg tablet [generic] Once daily TAKE 4 TABLETS (1000MG) BY MOUTH For SUPPLEMENT 1000 MG 06/26 Inactiv e 2023 52006 24725 6 Once daily By Mouth False Dulcolax (bisacodyl) 10 mg rectal suppository 10 mg Rectal Once daily For CONSTIPATION *MAY HOLD FOR LOOSE STOOLS* 10 mg 2023 Active 2023 31301 62968 1 Once daily Rectal False Gabapentin 300 mg capsule [generic] 300 mg By Mouth 3 times a day For NEUROPATHY 300 mg 2023 Active 2023 37256 33600 4 3 times a day By Mouth False Potassium citrate ER 15 mEq (1,620 mg) tablet,exte nded release [generic] 15 mEq By Mouth 3 times a day For SUPPLEMENT/DI URETIC USE/HYPOCITRA URIA 15 mEq 06/11 Inactiv e 2023 83255 37362 1 3 times a day By Mouth False Potassium chloride ER 20 mEq tablet,exte nded release [generic] 20 mEq By Mouth 3 times a day *DO NOT CRUSH, CHEW OR BREAK* For SUPPLEMENT 20 mEq 12/18 Inactiv e 2023 01262 72654 1 3 times a day By Mouth False Tizanidine 4 mg tablet [generic] 4 mg By Mouth Once daily For MUSCLE SPASMS 4 mg 2023 Active 2023 97634 56391 0 Once daily By Mouth False Tylenol 325 mg tablet 2 tabs By Mouth Every 4 hours as needed For Fever >100 DO NOT EXCEED 3000 MG APAP/24 Hours 2 tabs 12/20 Inactiv e 2023 13899 89657 0 Every 4 hours as needed By Mouth False Dulcolax (bisacodyl) 10 mg rectal suppository Daily as needed For Constipation 1 sup 12/20 Inactiv e 2023 34209 45343 1 Daily as needed Rectal False Fleet Enema 19 gram-7 gram/118 mL 1 Rectal Daily as neededFor Constipation 1 12/20 Inactiv e 2023 54996 95596 6 Daily as needed Rectal False Milk of Magnesia 400 mg/5 mL oral suspension [Magnesium hydroxide] PRN 30ml By Mouth Daily as needed for constipation one time daily if no BM, on day 4 of no BM (PRN refer to instructions) For Constipation For Constipatioin 30ml 12/20 Inactiv e 2023 71352 06785 6 1 time By Mouth False Melatonin 3 mg tablet [generic] 3 mg By Mouth Once daily As Needed For INSOMNIA 3 mg 12/20 Inactiv e 2023 85964 79214 8 Once daily By Mouth False Hydrocortis one 1 % topical cream [generic] 1 % Rectal Four times daily as needed For hemorroid pain 1 % 12/20 Inactiv e 2023 67177 55280 1 Four times daily as needed Rectal False X-STGH ANTACID 750MG CHEW TAKE (1) TABLET BY MOUTH THREE TIMES DAILY NEEDED FOR INDIGESTION 12/20 Inactiv e 2023 19034 11716 4 Three times daily as needed Saline Mist 0.65 % nasal spray aerosol 0.65 % Nares Four times daily as needed For DRYNESS 0.65 % 12/20 Inactiv e 2023 04030 58074 8 Four times daily as needed Nares False Vicks Vaporub 4.7 %-1.2 %-2.6 % topical ointment Apply topically to chest Three times daily as needed For CONGESTION 4.7-1.2 -2.6 12/20 Inactiv e 2023 44237 14173 1 Three times daily as needed Topica l False VITAMIN D3 2000U CAP TAKE ONE (1) CAPSULE BY MOUTH DAILY* DO NOT CRUSH, CHEW OR BREAK* For Supplement 1 capsule 12/19 Inactiv e 2023 25022 37057 0 Once daily By Mouth False Potassium chloride ER 20 mEq tablet,exte nded release(par t/cryst) [generic] TAKE (1) TABLET BY MOUTH THREE TIMES DAILY (MORNING, AFTERNOON, EVENING)*DO NOT CRUSH, CHEW, OR BREAK* For SUPPLEMENT 20 MEQ 06/11 Inactiv e 2023 08390 00017 5 3 times a day By Mouth False Aspirin 81 mg tablet,camron yed release [generic] TAKE ONE (1) TABLET BY MOUTH ONCE DAILY*DO NOT CRUSH, CHEW OR BREAK* For CAD 81 MG 12/22 Inactiv e 2023 43195 82026 0 Once daily By Mouth False Furosemide 20 mg tablet [generic] TAKE 1 AND 1/2 TABLETS (30MG) BY MOUTH ONCE DAILY For CHF 30mg 2023 Active 2023 46570 99536 1 Once daily By Mouth False Polyethylen e glycol 3350 17 gram/dose oral powder [generic] MIX 17 GRAMS (1 CAPFUL) IN 60Z OF LIQUID AND DRINK BY MOUTH ONCE DAILY *HOLD FOR LOOSE STOOLS* For constipation 17 g 2023 Active 2023 20112 66749 3 Once daily By Mouth False Vitamin D3 50 mcg (2,000 unit) capsule Once daily TAKE ONE (1) CAPSULE BY MOUTH DAILY* DO NOT CRUSH, CHEW OR BREAK* For Supplement 1 capsule 02/07 Inactiv e 2023 33157 22061 2 Once daily By Mouth False Fleet Enema 19 gram-7 gram/118 mL 1 Rectal Daily as neededFor Constipation 1 2023 0000 Active 2023 66294 73012 6 Daily as needed Rectal False Tums E-X 300 mg (as calcium carbonate 750 mg) chewable tablet 1 tab By Mouth TAKE (1) TABLET BY MOUTH THREE TIMES DAILY NEEDED FOR INDIGESTION 1 tab 202300 /0000 Active 2023 31090 63886 1 Three times daily as needed By Mouth False Tylenol 325 mg tablet 2 tabs By Mouth Every 4 hours as needed For Fever >100 DO NOT EXCEED 3000 MG APAP/24 Hours 2 tabs 202300 /0000 Active 2023 91215 82931 0 Every 4 hours as needed By Mouth False Vicks Vaporub 4.7 %-1.2 %-2.6 % topical ointment Apply topically to chest Three times daily as needed For CONGESTION topical 202300 Active 2023 89891 06204 1 Three times daily as needed Topica l False Tylenol 325 mg tablet 2 tabs By Mouth Every 4 hours as needed For DX- PAIN PRN FOR MILD PAIN, DO NOT EXCEED 3000MG APAP/24 HOURS 2 tabs 202300 Active 2023 79509 41002 0 Every 4 hours as needed By Mouth False Tramadol 50 mg tablet [generic] 1 tab By Mouth Every 4 hours as needed For DX- PAIN 5-10 1 tab 03/10 Inactiv e 2023 16552 70281 0 Every 4 hours as needed By Mouth False Saline Mist 0.65 % nasal spray aerosol 2 sprays Nares Four times daily as needed For DRYNESS 2 sprays 202300 / Active 2023 92733 59157 8 Four times daily as needed Nares False Dulcolax (bisacodyl) 10 mg rectal suppository Daily as needed For Constipation 1 sup 202300 / Active 2023 73931 96861 1 Daily as needed Rectal False Hydrocortis one-pramoxi ne 1 %-1 % rectal cream [generic] 1 mague Rectal Four times daily as needed For hemorroid pain 1 mague 202300 /0000 Active 2023 25651 09410 4 Four times daily as needed Rectal False Melatonin 3 mg tablet [generic] 1 tab By Mouth At bedtime as needed For INSOMNIA 1 tab 12/24 Inactiv e 2023 55716 33566 8 At bedtime as needed By Mouth False Milk of Magnesia 400 mg/5 mL oral suspension 30ml By Mouth Daily as needed Daily as needed for constipation one time daily if no BM, on day 4 of no BM (PRN refer to instructions) For Constipation For Constipatioin 30ml 2023 Active 2023 79886 04604 2 Daily as needed By Mouth False Baclofen 20 mg tablet [generic] 20 mg By Mouth 4 times a day For MUSCLE SPASMS 20 mg 2023 Active 2023 93098 97856 1 4 times a day By Mouth False Melatonin 3 mg tablet [generic] 1 tab By Mouth At bedtime as needed For INSOMNIA 1 tab 2023 Active 2023 30910 23442 8 At bedtime as needed By Mouth False Bactrim DS 800 mg-160 mg tablet 1 tab By Mouth Twice daily For URINARY TRACT INFECTION, SITE NOT SPECIFIED 1 tab 01/06 Inactiv e 2023 01102 13130 1 Twice daily By Mouth N39.0 False Cefdinir 300 mg capsule [generic] 300 mg By Mouth Twice daily For UTI 300 mg 01/07 Inactiv e 2023 93618 52977 0 Twice daily By Mouth False Cefdinir 300 mg capsule [generic] 300 mg By Mouth Twice daily For UTI 300 mg 01/17 Inactiv e 2023 63972 04139 0 Twice daily By Mouth False Zyrtec 10 mg tablet 10 mg By Mouth Once daily For sinus congestion 10 mg 01/22 Inactiv e 2023 53880 01045 0 Once daily By Mouth False Tobramycin 0.3 %-dexametha sone 0.1 % eye drops,suspe nsion [generic] 0.3-0.1 % Left Eye 4 times a day For eye infection 0.3-0.1 % 02/05 Inactiv e 2023 16484 60545 5 4 times a day Left Eye False Fluconazole 150 mg tablet [generic] 150 mg By Mouth 1 time For yeast infection 150 mg 02/15 Inactiv e 2023 90545 24932 2 1 time By Mouth False Tramadol 50 mg tablet [generic] 1 tab By Mouth Every 4 hours as needed For DX- PAIN 5-10 1 tab 2023 00/00 /0000 Active 2023 30224 95199 0 Every 4 hours as needed By Mouth False Tobramycin 0.3 %-dexametha sone 0.1 % eye drops,suspe nsion [generic] 1 drop Left Eye 4 times a day For Inflammation of left eye 1 drop 05/08 Inactiv e 2023 36464 78080 5 4 times a day Left Eye False Voltaren Arthritis Pain 1 % topical gel 2 gm Topical Twice daily to rigth shoulder for 2 weeks For pain 2 gm 05/08 Inactiv e 2023 86713 64443 1 Twice daily Topica l False Chlorthalid one 25 mg tablet [generic] 12.5mg By Mouth Once daily For HTN 12.5mg 05/06 Inactiv e 2023 39004 97990 0 Once daily By Mouth False Chlorthalid one 25 mg tablet [generic] 12.5mg By Mouth Once daily For HTN 12.5mg 05/07 Inactiv e 2023 38082 32030 0 Once daily By Mouth False Chlorthalid one 25 mg tablet [generic] 05/07 Inactiv e 2023 12016 00292 0 Chlorthalid one 25 mg tablet [generic] 12.5mg By Mouth Once daily For HTN 12.5mg 06/26 Inactiv e 2023 92180 65514 0 Once daily By Mouth False Norvasc 5 mg tablet 5mg By Mouth Once daily, hold medication if systolic is less than 90 For HYPERTENSIVE HEART DISEASE WITHOUT HEART FAILURE 5mg 06/03 Inactiv e 2023 26657 58522 1 Once daily By Mouth I11.9 False Norvasc 5 mg tablet 5mg By Mouth Once daily, hold medication if systolic is less than 90 For HYPERTENSIVE HEART DISEASE WITHOUT HEART FAILURE 5mg 06/03 Inactiv e 2023 17953 85262 1 Once daily By Mouth I11.9 False Norvasc 5 mg tablet 5mg By Mouth Once daily, hold medication if systolic is less than 90 For HYPERTENSIVE HEART DISEASE WITHOUT HEART FAILURE 5mg 06/26 Inactiv e 2023 58415 84849 1 Once daily By Mouth I11.9 False [...] 10 mg 2023 00/00 /0000 Active 2023 12207 54008 1 Once daily By Mouth False DISCONTINUE [...] CAD 81 mg 06/14 Inactiv e 2023 28923 19988 9 Once daily By Mouth False Aspirin 81 mg tablet,camron yed release [generic] 06/14 Inactiv e 2023 47820 84288 9 Aspirin 81 mg tablet,camron yed release [generic] 81 mg By Mouth Once daily Do not crush, chew, or break For CAD 81 mg 06/154 Inactiv e 2023 56789 18063 9 Once daily By Mouth False Cefpodoxime 200 mg tablet [generic] 200mg By Mouth Twice daily For UTI 200mg 07/04 Inactiv e 2023 42078 82484 0 Twice daily By Mouth False Calcium citrate 250 mg tablet [generic] 06/26 Inactiv e 2023 96096 49420 6 Calcium citrate 250 mg tablet [generic] Once daily TAKE 4 TABLETS (1000MG) BY MOUTH For SUPPLEMENT 500 MG 2023 Active 2023 79911 43322 6 Once daily By Mouth False Norvasc 5 mg tablet 7.5 mg By Mouth Once daily Hold medication if SBP <90 For HYPERTENSIVE HEART DISEASE WITHOUT HEART FAILURE 7.5 mg 06/30 Inactiv e 2023 41501 59703 1 Once daily By Mouth I11.9 False Norvasc 5 mg tablet 7.5 mg By Mouth Once daily Hold medication if SBP <90 For HYPERTENSIVE HEART DISEASE WITHOUT HEART FAILURE 7.5 mg 2023 Active 2023 53804 30022 1 Once daily By Mouth I11.9 False Simethicone 125 mg capsule [generic] 2 capule By Mouth Twice daily as needed For bloating/gas pain 2 capule 2023 Active 2023 14707 60631 0 Twice daily as needed By Mouth False Cepacol Sore Throat (benzocaine -menthol) 15 mg-2.6 mg lozenges 2 lozenges By Mouth Every 6 hours as needed For sore throat 2 lozenge s 2023 Active 2023 18923 29812 6 Every 6 hours as needed By Mouth False Nystatin 100,000 unit/gram topical cream [generic] 100,000 unit Topical As Needed For DX- EXCORIATION 100,000 unit 12/12 Inactiv e 2023 08076 17796 5 Topica l False Vicks Vaporub 4.7 %-1.2 %-2.6 % topical ointment 4.7-1.2-2.6 Topical 3 times a day As Needed For DX- CONGESTION 4.7-1.2 -2.6 12/12 Inactiv e 2023 89485 44743 1 3 times a day Topica l False Ketoconazol e 2 % shampoo [generic] APPLY SHAMPOO TOPICALLY TO SCALP DURING HAIR WASHINGDX: ELVIA DERM OF SCALP For DX- ELVIA DERM OF SCALP 12/12 Inactiv e 2023 79662 54493 4 Topica l False THERA SILICONE SKIN GUARD Topical Twice daily 1 APPLICATION TOPICALLY IN THE MORNING AND AT BEDTIME TO SCROTUM For DX- PREVENTION 2023 Active 2023 Twice daily Topica l False Selenium sulfide 2.5 % lotion [generic] 2.5 % Topical EVERY MONDAY, MONDAY AND MONDAY AFTER SHOWER For DANDRUFF 2.5 % 2023 Active 2023 20120 78438 4 3 times a week Topica l False Nystatin (bulk) 100 million unit powder [generic] 100 million Topical Twice daily as needed For EXOCORATION 100 million 12/20 Inactiv e 2023 60805 99351 1 Twice daily as needed Topica l False Ketoconazol e 2 % shampoo [generic] Once daily APPLY SHAMPOO TOPICALLY TO SCALP DURING HAIR WASHING ON SHOWER DAYS- , , MON For ELVIA DERM OF SCAP 2 % 202300 Active 2023 43009 16302 4 Once daily Topica l False Nystatin 100,000 unit/gram topical cream [generic] 1 mague Topical Twice daily as needed For EXOCORATION 1 mague 06/05 Inactiv e 2023 20356 88703 5 Twice daily as needed Topica l False Nystatin 100,000 unit/gram topical powder [generic] 100,000 unit Topical Twice daily to scrotum with AM and PM care For Scrotal excoriation 100,000 unit 06/054 Inactiv e 2023 09960 83634 5 Twice daily Topica l False Problems [...] weight Temperature SpO2 Blood Sugar Pulse Respirations 127 89037 3 93.00 mm[Hg] - Sitting 186.00 mm[Hg] - Sitting 128 29354 0 80.00 mm[Hg] - Sitting 154.00 mm[Hg] - Sitting 129 56954 3 83.00 mm[Hg] - Sitting 174.00 mm[Hg] - Sitting 130 78066 5 78.00 mm[Hg] - Sitting 152.00 mm[Hg] - Sitting 201 04713 1 87.00 mm[Hg] - Sitting 189.00 mm[Hg] - Sitting 48823 202 54707 2 76.00 mm[Hg] - Sitting 136.00 mm[Hg] - Sitting 70154 203 68861 2 259.80 NI 18351 203 06974 5 93.00 mm[Hg] - Sitting 137.00 mm[Hg] - Sitting 30902 204 53851 2 259.40 NI 66285 204 24777 1 78.00 mm[Hg] - Sitting 144.00 mm[Hg] - Sitting 80621 205 57827 4 85.00 mm[Hg] - Sitting 142.00 mm[Hg] - Sitting 93474 206 86231 9 76.00 mm[Hg] - Sitting 132.00 mm[Hg] - Sitting 44287 208 78754 9 82.00 mm[Hg] - Sitting 128.00 mm[Hg] - Sitting 21235 209 34450 2 78.00 mm[Hg] - Sitting 130.00 mm[Hg] - Sitting 73581 210 53000 6 80.00 mm[Hg] - Sitting 132.00 mm[Hg] - Sitting 58024 211 90241 5 78.00 mm[Hg] - Sitting 125.00 mm[Hg] - Sitting 64061 216 15078 1 254.10 NI 56292 216 86256 2 79.00 mm[Hg] - Sitting 157.00 mm[Hg] - Sitting 73 NI 254.10 NI 36.30 Tympanic 95.00 % 72.00/ min 16.00/min 29140 216 88508 4 98.80 Tympanic 53009 216 79422 2 78.00 mm[Hg] - Sitting 164.00 mm[Hg] - Sitting 36240 217 04882 3 98.20 Tympanic 50539 217 90086 5 73.00 mm[Hg] - Sitting 159.00 mm[Hg] - Sitting 61668 217 46906 9 98.40 Forehead Scan 82959 218 26449 3 97.90 Tympanic 90609 218 58714 5 77.00 mm[Hg] - Sitting 137.00 mm[Hg] - Sitting 65536 219 49621 0 97.70 Tympanic 43269 219 22444 6 97.60 Tympanic 46958 219 94250 4 76.00 mm[Hg] - Sitting 139.00 mm[Hg] - Sitting 19207 219 42693 4 97.80 Forehead Scan 10517 220 83321 9 97.90 Tympanic 53113 220 29316 9 76.00 mm[Hg] - Sitting 138.00 mm[Hg] - Sitting 38509 220 61701 6 98.10 Tympanic 67466 221 85738 5 67.00 mm[Hg] - Sitting 142.00 mm[Hg] - Sitting 80395 221 03202 8 98.20 Tympanic 07708 221 00304 0 98.30 Tympanic 29068 222 24370 7 98.20 Tympanic 79290 222 70202 8 97.90 Tympanic 22104 223 42711 3 98.20 Tympanic 02547 223 27071 3 98.00 Tympanic 21844 224 40640 0 59.00 mm[Hg] - Sitting 111.00 mm[Hg] - Sitting 98.40 Forehead Scan 95.00 % 56.00/ min 18.00/min 44704 224 57589 9 98.20 Forehead Scan 15984 224 32946 3 97.90 Tympanic 13194 225 36682 4 98.20 Tympanic 35999 225 18698 8 97.50 Forehead Scan Immunizations Vaccine Date Status COVID-19 08/02/2020 Completed [...]
--- OUTSIDE RECORDS SUMMARY | 2024-07-26 11:25 | External Medical Summary | Continuity Of Care Document ---
Author Name Unknown Address [address] [place] [address] Organization [facility] () Care Team Providers Care 3D Specialist Name Role Phone DO Pritchett Amy Primary Care Provider [phone] Allergies Allergy Reaction Start Date End Date Status AMINOGLYCOSIDES Active CIPRO Active GENTAMICIN Active NSAIDS (NON-STEROIDAL ANTI-INFLAMMATORY DRUG) 0 Active IBUPROFEN Active QUINOLONES Active VALIUM Active Medications Medication Instructions Dosage Start Date End Date Status Order Date Drug Code Frequency Route of Admin Diagnosis Code Substitutions Allowed Spikevax [id number](1 2y up)(PF) 50 mcg/0.5 mL intramuscul ar suspension [COVID [id number](12 up)(andu)(P F)] 0.5mL Intramuscular 1 time Monitory 15 Minutes post injection for adverse effects; record site/temp For COVID 19 PREVENTION 0.5mL 01/02 Inactiv e 2023 02864 09532 4 1 time Intram uscula r False [facility] - Nurse initials indicate verificatio n that [id number] vaccine was administere d by [facility] Representat jon 1 Intramuscular 1 time ( Indicate vaccine type) For vaccine 1 05/03 Inactiv e 2023 1 time Intram uscula r False Lisinopril 40 mg tablet [generic] TAKE ONE (1) TABLET BY MOUTH IN THE MORNING. For DX- HTN 1 2023 Active 2023 04422 32986 1 Once daily By Mouth False Tizanidine 2 mg tablet [generic] TAKE ONE (1) TABLET BY MOUTH ONCE DAILY For MUSCLE SPASM 1 2023 Active 2023 00858 07065 0 Once daily By Mouth M62.838 False Tamsulosin 0.4 mg capsule [generic] TAKE (1) CAPSULE BY MOUTH AT BEDTIME For SPASMS 1 2023 Active 2023 07317 96871 0 Once daily By Mouth False Aspirin 81 mg tablet Once daily 1 TABLET BY MOUTH IN THE MORNING For DX- CAD DO NOT CRUSH, CHEW OR BREAK 81 mg 06/12 Inactiv e 2023 Once daily By Mouth False Baclofen 20 mg tablet [generic] 20 mg By Mouth 4 times a day For DX- MUSCLE SPASMS 20 mg 12/12 Inactiv e 2023 97645 14113 1 4 times a day By Mouth False Calcium citrate 250 mg tablet Once daily 4 TABLET BY MOUTH For DX- SUPPLEMENT 250 mg calci 12/12 Inactiv e 2023 Once daily By Mouth False Co Q-10 100 mg capsule 100 mg By Mouth Once daily For DX- SUPPLEMENT 100 mg 06/20 Inactiv e 2023 92185 00759 5 Once daily By Mouth False Furosemide 20 mg tablet [generic] 20 mg By Mouth Once daily For DX-CHF 20 mg 12/12 Inactiv e 2023 43545 64854 0 Once daily By Mouth False Gabapentin 300 mg capsule [generic] 300 mg By Mouth 3 times a day For DX- NEUROPATHY 300 mg 12/12 Inactiv e 2023 48155 48328 4 3 times a day By Mouth False Loratadine 10 mg tablet [generic] 10 mg By Mouth Once daily For DX- ALLERGIES 10 mg 2023 Active 2023 34020 71553 1 Once daily By Mouth False Miralax 17 gram/dose oral powder 17 gram/dose By Mouth IN THE MORNING Mix 1 TABLESPOON IN 8 OZ OF FLUID HOLD FOR LOOSE STOOLS For DX- CONSTIPATION 17 gram/do se 12/12 Inactiv e 2023 24504 79382 0 Once daily By Mouth False Paroxetine 30 mg tablet [generic] 30 mg By Mouth Once daily For DX- DEPRESSION 30 mg 2023 00/00 /0000 Active 2023 26070 12444 3 Once daily By Mouth False Potassium citrate ER 15 mEq (1,620 mg) tablet,exte nded release [generic] 15 mEq By Mouth 3 times a day For DX- SUPPLEMENT/DI URETIC USE/ HYPOCITRAUIRA DO NOT CRUSH 15 mEq 12/12 Inactiv e 2023 42514 56522 1 3 times a day By Mouth [...] For DX- DANDRUFF 12/12 Inactiv e 2023 63943 36451 4 3 times a week Topica l False Acetaminoph en 325 mg tablet [generic] TAKE 2 TABS (650MG) BY MOUTH EVERY 4 HOURS NEEDED FOR TEMP >100 NOT TO EXCEED 3GM/24HRS TAKE 2 TABS (650MG) BY MOUTH EVERY 4 HOURS NEEDED FOR TEMP >100 NOT TO EXCEED 3GM/24HRS For DX-FEVER 2 12/12 Inactiv e 2023 12156 74194 0 By Mouth False MILK OF MAGNESIA ADMINISTER 30 ML BY MOUTH ONCE DAILY NEEDED FOR CONSTIPATION X3 DAYS WITH NO BM. For DX- CONSTIPATION 30ML 12/12 Inactiv e 2023 11918 79416 9 By Mouth False Enema Disposable 19 gram-7 gram/118 mL ADMINISTER ONE ENEMA RECTALLY ONCE DAILY NEEDED FOR CONSTIPATION ON DAY 6 OF NO BM For DX- CONSTIPATION 12/12 Inactiv e 2023 24600 02620 1 Rectal False TUMS EXTRA STR 750MG TAKE (1) TABLET BY MOUTH THREE TIMES DAILY NEEDED FOR INDIGESTION For DX- INDIGESTION 1 12/12 Inactiv e 2023 91123 14226 8 By Mouth False Vitamin D3 25 [...] CONSTIPATION 10 mg 12/12 Inactiv e 2023 79818 30326 1 Rectal False Melatonin 3 mg tablet [generic] 3 mg By Mouth As Needed For DX-INSOMMIA 3 mg 12/12 Inactiv e 2023 71122 70893 8 By Mouth False Hydrocortis one 1 % topical cream [generic] 1 % Topical As Needed For DX- PAIN 1 % 12/12 Inactiv e 2023 74683 39740 1 Topica l False HYDROCORTIS ONE/PARMOXI NE [...] 5-10 50 mg 12/20 Inactiv e 2023 42651 94559 0 Every 4 hours as needed By Mouth False Tylenol 325 mg tablet 325 mg By Mouth Every 4 hours as needed For DX- PAIN PRN FOR MILD PAIN, DO NOT EXCEED 3000MG APAP/24 HOURS 325 mg 12/20 Inactiv e 2023 92876 03645 0 Every 4 hours as needed By Mouth False Baclofen 20 mg tablet [generic] 20 mg By Mouth 4 times a day For MUSCLE SPASMS 20 mg 12/20 Inactiv e 2023 55480 40313 1 4 times a day By Mouth False Calcium citrate 250 mg tablet [generic] Once daily TAKE 4 TABLETS (1000MG) BY MOUTH For SUPPLEMENT 1000 MG 06/26 Inactiv e 2023 50069 21827 6 Once daily By Mouth False Dulcolax (bisacodyl) 10 mg rectal suppository 10 mg Rectal Once daily For CONSTIPATION *MAY HOLD FOR LOOSE STOOLS* 10 mg 2023 Active 2023 64148 93507 1 Once daily Rectal False Gabapentin 300 mg capsule [generic] 300 mg By Mouth 3 times a day For NEUROPATHY 300 mg 2023 Active 2023 69013 33719 4 3 times a day By Mouth False Potassium citrate ER 15 mEq (1,620 mg) tablet,exte nded release [generic] 15 mEq By Mouth 3 times a day For SUPPLEMENT/DI URETIC USE/HYPOCITRA URIA 15 mEq 06/11 Inactiv e 2023 56615 68155 1 3 times a day By Mouth False Potassium chloride ER 20 mEq tablet,exte nded release [generic] 20 mEq By Mouth 3 times a day *DO NOT CRUSH, CHEW OR BREAK* For SUPPLEMENT 20 mEq 12/18 Inactiv e 2023 93927 59578 1 3 times a day By Mouth False Tizanidine 4 mg tablet [generic] 4 mg By Mouth Once daily For MUSCLE SPASMS 4 mg 2023 Active 2023 77749 49223 0 Once daily By Mouth False Tylenol 325 mg tablet 2 tabs By Mouth Every 4 hours as needed For Fever >100 DO NOT EXCEED 3000 MG APAP/24 Hours 2 tabs 12/20 Inactiv e 2023 47540 48376 0 Every 4 hours as needed By Mouth False Dulcolax (bisacodyl) 10 mg rectal suppository Daily as needed For Constipation 1 sup 12/20 Inactiv e 2023 44194 15833 1 Daily as needed Rectal False Fleet Enema 19 gram-7 gram/118 mL 1 Rectal Daily as neededFor Constipation 1 12/20 Inactiv e 2023 30591 30170 6 Daily as needed Rectal False Milk of Magnesia 400 mg/5 mL oral suspension [Magnesium hydroxide] PRN 30ml By Mouth Daily as needed for constipation one time daily if no BM, on day 4 of no BM (PRN refer to instructions) For Constipation For Constipatioin 30ml 12/20 Inactiv e 2023 21232 39082 6 1 time By Mouth False Melatonin 3 mg tablet [generic] 3 mg By Mouth Once daily As Needed For INSOMNIA 3 mg 12/20 Inactiv e 2023 97555 23543 8 Once daily By Mouth False Hydrocortis one 1 % topical cream [generic] 1 % Rectal Four times daily as needed For hemorroid pain 1 % 12/20 Inactiv e 2023 34801 70459 1 Four times daily as needed Rectal False X-STGH ANTACID 750MG CHEW TAKE (1) TABLET BY MOUTH THREE TIMES DAILY NEEDED FOR INDIGESTION 12/20 Inactiv e 2023 70534 35268 4 Three times daily as needed Saline Mist 0.65 % nasal spray aerosol 0.65 % Nares Four times daily as needed For DRYNESS 0.65 % 12/20 Inactiv e 2023 22724 50335 8 Four times daily as needed Nares False Vicks Vaporub 4.7 %-1.2 %-2.6 % topical ointment Apply topically to chest Three times daily as needed For CONGESTION 4.7-1.2 -2.6 12/20 Inactiv e 2023 24240 38863 1 Three times daily as needed Topica l False VITAMIN D3 2000U CAP TAKE ONE (1) CAPSULE BY MOUTH DAILY* DO NOT CRUSH, CHEW OR BREAK* For Supplement 1 capsule 12/19 Inactiv e 2023 95218 22286 0 Once daily By Mouth False Potassium chloride ER 20 mEq tablet,exte nded release(par t/cryst) [generic] TAKE (1) TABLET BY MOUTH THREE TIMES DAILY (MORNING, AFTERNOON, EVENING)*DO NOT CRUSH, CHEW, OR BREAK* For SUPPLEMENT 20 MEQ 06/11 Inactiv e 2023 66527 89006 5 3 times a day By Mouth False Aspirin 81 mg tablet,camron yed release [generic] TAKE ONE (1) TABLET BY MOUTH ONCE DAILY*DO NOT CRUSH, CHEW OR BREAK* For CAD 81 MG 12/22 Inactiv e 2023 45114 54438 0 Once daily By Mouth False Furosemide 20 mg tablet [generic] TAKE 1 AND 1/2 TABLETS (30MG) BY MOUTH ONCE DAILY For CHF 30mg 2023 Active 2023 27213 05210 1 Once daily By Mouth False Polyethylen e glycol 3350 17 gram/dose oral powder [generic] MIX 17 GRAMS (1 CAPFUL) IN 60Z OF LIQUID AND DRINK BY MOUTH ONCE DAILY *HOLD FOR LOOSE STOOLS* For constipation 17 g 2023 Active 2023 66686 39401 3 Once daily By Mouth False Vitamin D3 50 mcg (2,000 unit) capsule Once daily TAKE ONE (1) CAPSULE BY MOUTH DAILY* DO NOT CRUSH, CHEW OR BREAK* For Supplement 1 capsule 02/07 Inactiv e 2023 39657 98242 2 Once daily By Mouth False Fleet Enema 19 gram-7 gram/118 mL 1 Rectal Daily as neededFor Constipation 1 2023 0000 Active 2023 35158 88203 6 Daily as needed Rectal False Tums E-X 300 mg (as calcium carbonate 750 mg) chewable tablet 1 tab By Mouth TAKE (1) TABLET BY MOUTH THREE TIMES DAILY NEEDED FOR INDIGESTION 1 tab 202300 /0000 Active 2023 16185 91084 1 Three times daily as needed By Mouth False Tylenol 325 mg tablet 2 tabs By Mouth Every 4 hours as needed For Fever >100 DO NOT EXCEED 3000 MG APAP/24 Hours 2 tabs 202300 /0000 Active 2023 85949 57828 0 Every 4 hours as needed By Mouth False Vicks Vaporub 4.7 %-1.2 %-2.6 % topical ointment Apply topically to chest Three times daily as needed For CONGESTION topical 202300 Active 2023 60170 28061 1 Three times daily as needed Topica l False Tylenol 325 mg tablet 2 tabs By Mouth Every 4 hours as needed For DX- PAIN PRN FOR MILD PAIN, DO NOT EXCEED 3000MG APAP/24 HOURS 2 tabs 202300 Active 2023 56124 66874 0 Every 4 hours as needed By Mouth False Tramadol 50 mg tablet [generic] 1 tab By Mouth Every 4 hours as needed For DX- PAIN 5-10 1 tab 03/10 Inactiv e 2023 31272 73166 0 Every 4 hours as needed By Mouth False Saline Mist 0.65 % nasal spray aerosol 2 sprays Nares Four times daily as needed For DRYNESS 2 sprays 202300 / Active 2023 66760 28408 8 Four times daily as needed Nares False Dulcolax (bisacodyl) 10 mg rectal suppository Daily as needed For Constipation 1 sup 202300 / Active 2023 89073 11551 1 Daily as needed Rectal False Hydrocortis one-pramoxi ne 1 %-1 % rectal cream [generic] 1 mague Rectal Four times daily as needed For hemorroid pain 1 mague 202300 /0000 Active 2023 20445 00279 4 Four times daily as needed Rectal False Melatonin 3 mg tablet [generic] 1 tab By Mouth At bedtime as needed For INSOMNIA 1 tab 12/24 Inactiv e 2023 88380 23396 8 At bedtime as needed By Mouth False Milk of Magnesia 400 mg/5 mL oral suspension 30ml By Mouth Daily as needed Daily as needed for constipation one time daily if no BM, on day 4 of no BM (PRN refer to instructions) For Constipation For Constipatioin 30ml 2023 Active 2023 68886 92959 2 Daily as needed By Mouth False Baclofen 20 mg tablet [generic] 20 mg By Mouth 4 times a day For MUSCLE SPASMS 20 mg 2023 Active 2023 95664 78414 1 4 times a day By Mouth False Melatonin 3 mg tablet [generic] 1 tab By Mouth At bedtime as needed For INSOMNIA 1 tab 2023 Active 2023 88387 56391 8 At bedtime as needed By Mouth False Bactrim DS 800 mg-160 mg tablet 1 tab By Mouth Twice daily For URINARY TRACT INFECTION, SITE NOT SPECIFIED 1 tab 01/06 Inactiv e 2023 39268 32501 1 Twice daily By Mouth N39.0 False Cefdinir 300 mg capsule [generic] 300 mg By Mouth Twice daily For UTI 300 mg 01/07 Inactiv e 2023 84364 96715 0 Twice daily By Mouth False Cefdinir 300 mg capsule [generic] 300 mg By Mouth Twice daily For UTI 300 mg 01/17 Inactiv e 2023 56068 34183 0 Twice daily By Mouth False Zyrtec 10 mg tablet 10 mg By Mouth Once daily For sinus congestion 10 mg 01/22 Inactiv e 2023 19321 90903 0 Once daily By Mouth False Tobramycin 0.3 %-dexametha sone 0.1 % eye drops,suspe nsion [generic] 0.3-0.1 % Left Eye 4 times a day For eye infection 0.3-0.1 % 02/05 Inactiv e 2023 90618 59498 5 4 times a day Left Eye False Fluconazole 150 mg tablet [generic] 150 mg By Mouth 1 time For yeast infection 150 mg 02/15 Inactiv e 2023 35284 24822 2 1 time By Mouth False Tramadol 50 mg tablet [generic] 1 tab By Mouth Every 4 hours as needed For DX- PAIN 5-10 1 tab 2023 00/00 /0000 Active 2023 15802 67552 0 Every 4 hours as needed By Mouth False Tobramycin 0.3 %-dexametha sone 0.1 % eye drops,suspe nsion [generic] 1 drop Left Eye 4 times a day For Inflammation of left eye 1 drop 05/08 Inactiv e 2023 69970 12753 5 4 times a day Left Eye False Voltaren Arthritis Pain 1 % topical gel 2 gm Topical Twice daily to rigth shoulder for 2 weeks For pain 2 gm 05/08 Inactiv e 2023 02796 01445 1 Twice daily Topica l False Chlorthalid one 25 mg tablet [generic] 12.5mg By Mouth Once daily For HTN 12.5mg 05/06 Inactiv e 2023 75394 58655 0 Once daily By Mouth False Chlorthalid one 25 mg tablet [generic] 12.5mg By Mouth Once daily For HTN 12.5mg 05/07 Inactiv e 2023 87084 76319 0 Once daily By Mouth False Chlorthalid one 25 mg tablet [generic] 05/07 Inactiv e 2023 08306 64829 0 Chlorthalid one 25 mg tablet [generic] 12.5mg By Mouth Once daily For HTN 12.5mg 06/26 Inactiv e 2023 97040 23032 0 Once daily By Mouth False Norvasc 5 mg tablet 5mg By Mouth Once daily, hold medication if systolic is less than 90 For HYPERTENSIVE HEART DISEASE WITHOUT HEART FAILURE 5mg 06/03 Inactiv e 2023 24609 58199 1 Once daily By Mouth I11.9 False Norvasc 5 mg tablet 5mg By Mouth Once daily, hold medication if systolic is less than 90 For HYPERTENSIVE HEART DISEASE WITHOUT HEART FAILURE 5mg 06/03 Inactiv e 2023 38775 95888 1 Once daily By Mouth I11.9 False Norvasc 5 mg tablet 5mg By Mouth Once daily, hold medication if systolic is less than 90 For HYPERTENSIVE HEART DISEASE WITHOUT HEART FAILURE 5mg 06/26 Inactiv e 2023 92149 15685 1 Once daily By Mouth I11.9 False [...] 10 mg 2023 00/00 /0000 Active 2023 82290 95800 1 Once daily By Mouth False DISCONTINUE [...] CAD 81 mg 06/14 Inactiv e 2023 59141 71081 9 Once daily By Mouth False Aspirin 81 mg tablet,camron yed release [generic] 06/14 Inactiv e 2023 29931 77622 9 Aspirin 81 mg tablet,camron yed release [generic] 81 mg By Mouth Once daily Do not crush, chew, or break For CAD 81 mg 06/154 Inactiv e 2023 14928 88215 9 Once daily By Mouth False Cefpodoxime 200 mg tablet [generic] 200mg By Mouth Twice daily For UTI 200mg 07/04 Inactiv e 2023 44151 97461 0 Twice daily By Mouth False Calcium citrate 250 mg tablet [generic] 06/26 Inactiv e 2023 50146 14805 6 Calcium citrate 250 mg tablet [generic] Once daily TAKE 4 TABLETS (1000MG) BY MOUTH For SUPPLEMENT 500 MG 2023 Active 2023 76834 98890 6 Once daily By Mouth False Norvasc 5 mg tablet 7.5 mg By Mouth Once daily Hold medication if SBP <90 For HYPERTENSIVE HEART DISEASE WITHOUT HEART FAILURE 7.5 mg 06/30 Inactiv e 2023 76322 86579 1 Once daily By Mouth I11.9 False Norvasc 5 mg tablet 7.5 mg By Mouth Once daily Hold medication if SBP <90 For HYPERTENSIVE HEART DISEASE WITHOUT HEART FAILURE 7.5 mg 2023 Active 2023 55854 73130 1 Once daily By Mouth I11.9 False Simethicone 125 mg capsule [generic] 2 capule By Mouth Twice daily as needed For bloating/gas pain 2 capule 2023 Active 2023 28972 75618 0 Twice daily as needed By Mouth False Cepacol Sore Throat (benzocaine -menthol) 15 mg-2.6 mg lozenges 2 lozenges By Mouth Every 6 hours as needed For sore throat 2 lozenge s 2023 Active 2023 33921 64456 6 Every 6 hours as needed By Mouth False Nystatin 100,000 unit/gram topical cream [generic] 100,000 unit Topical As Needed For DX- EXCORIATION 100,000 unit 12/12 Inactiv e 2023 82685 16487 5 Topica l False Vicks Vaporub 4.7 %-1.2 %-2.6 % topical ointment 4.7-1.2-2.6 Topical 3 times a day As Needed For DX- CONGESTION 4.7-1.2 -2.6 12/12 Inactiv e 2023 13371 27801 1 3 times a day Topica l False Ketoconazol e 2 % shampoo [generic] APPLY SHAMPOO TOPICALLY TO SCALP DURING HAIR WASHINGDX: ELVIA DERM OF SCALP For DX- ELVIA DERM OF SCALP 12/12 Inactiv e 2023 45786 45196 4 Topica l False THERA SILICONE SKIN GUARD Topical Twice daily 1 APPLICATION TOPICALLY IN THE MORNING AND AT BEDTIME TO SCROTUM For DX- PREVENTION 2023 Active 2023 Twice daily Topica l False Selenium sulfide 2.5 % lotion [generic] 2.5 % Topical EVERY MONDAY, MONDAY AND MONDAY AFTER SHOWER For DANDRUFF 2.5 % 2023 Active 2023 31332 63425 4 3 times a week Topica l False Nystatin (bulk) 100 million unit powder [generic] 100 million Topical Twice daily as needed For EXOCORATION 100 million 12/20 Inactiv e 2023 34354 16127 1 Twice daily as needed Topica l False Ketoconazol e 2 % shampoo [generic] Once daily APPLY SHAMPOO TOPICALLY TO SCALP DURING HAIR WASHING ON SHOWER DAYS- , , MON For ELVIA DERM OF SCAP 2 % 202300 Active 2023 53172 77403 4 Once daily Topica l False Nystatin 100,000 unit/gram topical cream [generic] 1 mague Topical Twice daily as needed For EXOCORATION 1 mague 06/05 Inactiv e 2023 55995 26332 5 Twice daily as needed Topica l False Nystatin 100,000 unit/gram topical powder [generic] 100,000 unit Topical Twice daily to scrotum with AM and PM care For Scrotal excoriation 100,000 unit 06/054 Inactiv e 2023 55212 11668 5 Twice daily Topica l False Problems [...] Temperature SpO2 Blood Sugar Pulse Respirations 127 95899 3 93.00 mm[Hg] - Sitting 186.00 mm[Hg] - Sitting 128 83614 0 80.00 mm[Hg] - Sitting 154.00 mm[Hg] - Sitting 129 22553 3 83.00 mm[Hg] - Sitting 174.00 mm[Hg] - Sitting 130 94072 5 78.00 mm[Hg] - Sitting 152.00 mm[Hg] - Sitting 201 50250 1 87.00 mm[Hg] - Sitting 189.00 mm[Hg] - Sitting 58889 202 84621 2 76.00 mm[Hg] - Sitting 136.00 mm[Hg] - Sitting 01997 203 02523 2 259.80 NI 03096 203 40144 5 93.00 mm[Hg] - Sitting 137.00 mm[Hg] - Sitting 53822 204 07522 2 259.40 NI 60448 204 88874 1 78.00 mm[Hg] - Sitting 144.00 mm[Hg] - Sitting 07498 205 19983 4 85.00 mm[Hg] - Sitting 142.00 mm[Hg] - Sitting 47463 206 72508 9 76.00 mm[Hg] - Sitting 132.00 mm[Hg] - Sitting 95063 208 28657 9 82.00 mm[Hg] - Sitting 128.00 mm[Hg] - Sitting 85280 209 53719 2 78.00 mm[Hg] - Sitting 130.00 mm[Hg] - Sitting 87229 210 33079 6 80.00 mm[Hg] - Sitting 132.00 mm[Hg] - Sitting 44779 211 68650 5 78.00 mm[Hg] - Sitting 125.00 mm[Hg] - Sitting 73804 216 46878 1 254.10 NI 00684 216 61307 2 79.00 mm[Hg] - Sitting 157.00 mm[Hg] - Sitting 73 NI 254.10 NI 36.30 Tympanic 95.00 % 72.00/ min 16.00/min 77183 216 17392 4 98.80 Tympanic 13474 216 01061 2 78.00 mm[Hg] - Sitting 164.00 mm[Hg] - Sitting 32792 217 50159 3 98.20 Tympanic 16766 217 08948 5 73.00 mm[Hg] - Sitting 159.00 mm[Hg] - Sitting 20201 217 01289 9 98.40 Forehead Scan 19915 218 79816 3 97.90 Tympanic 65251 218 65837 5 77.00 mm[Hg] - Sitting 137.00 mm[Hg] - Sitting 70187 219 74343 0 97.70 Tympanic 53251 219 93727 6 97.60 Tympanic 37961 219 57485 4 76.00 mm[Hg] - Sitting 139.00 mm[Hg] - Sitting 57393 219 72504 4 97.80 Forehead Scan 92318 220 65786 9 97.90 Tympanic 13617 220 57004 9 76.00 mm[Hg] - Sitting 138.00 mm[Hg] - Sitting 14749 220 93435 6 98.10 Tympanic 27164 221 11304 5 67.00 mm[Hg] - Sitting 142.00 mm[Hg] - Sitting 36156 221 94878 8 98.20 Tympanic 16477 221 00283 0 98.30 Tympanic 47887 222 43043 7 98.20 Tympanic 84245 222 60322 8 97.90 Tympanic 73653 223 56255 3 98.20 Tympanic 46244 223 55140 3 98.00 Tympanic 29024 224 31022 0 59.00 mm[Hg] - Sitting 111.00 mm[Hg] - Sitting 98.40 Forehead Scan 95.00 % 56.00/ min 18.00/min 81212 224 46173 9 98.20 Forehead Scan 03093 224 63511 3 97.90 Tympanic 99221 225 97540 4 98.20 Tympanic 76051 225 84629 8 97.50 Forehead Scan Immunizations Vaccine Date [...]
--- OUTSIDE RECORDS SUMMARY | 2024-07-26 11:25 | External Medical Summary | Continuity Of Care Document ---
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 Engineer Pile Driving Name Role Phone DO Pritchett Amy Primary Care Provider [phone] Allergies Allergy Reaction Start Date End Date Status AMINOGLYCOSIDES Active CIPRO Active GENTAMICIN Active NSAIDS (NON-STEROIDAL ANTI-INFLAMMATORY DRUG) 0 Active IBUPROFEN Active QUINOLONES Active VALIUM Active Medications Medication Instructions Dosage Start Date End Date Status Order Date Drug Code Frequency Route of Admin Diagnosis Code Substitutions Allowed Spikevax [id number](1 2y up)(PF) 50 mcg/0.5 mL intramuscul ar suspension [COVID [id number](12 up)(andu)(P F)] 0.5mL Intramuscular 1 time Monitory 15 Minutes post injection for adverse effects; record site/temp For COVID 19 PREVENTION 0.5mL 01/02 Inactiv e 2023 11895 79940 4 1 time Intram uscula r False [facility] - Nurse initials indicate verificatio n that [id number] vaccine was administere d by [facility] Representat jon 1 Intramuscular 1 time ( Indicate vaccine type) For vaccine 1 05/03 Inactiv e 2023 1 time Intram uscula r False Lisinopril 40 mg tablet [generic] TAKE ONE (1) TABLET BY MOUTH IN THE MORNING. For DX- HTN 1 2023 Active 2023 51349 99308 1 Once daily By Mouth False Tizanidine 2 mg tablet [generic] TAKE ONE (1) TABLET BY MOUTH ONCE DAILY For MUSCLE SPASM 1 2023 Active 2023 77421 08238 0 Once daily By Mouth M62.838 False Tamsulosin 0.4 mg capsule [generic] TAKE (1) CAPSULE BY MOUTH AT BEDTIME For SPASMS 1 2023 Active 2023 54054 49539 0 Once daily By Mouth False Aspirin 81 mg tablet Once daily 1 TABLET BY MOUTH IN THE MORNING For DX- CAD DO NOT CRUSH, CHEW OR BREAK 81 mg 06/12 Inactiv e 2023 Once daily By Mouth False Baclofen 20 mg tablet [generic] 20 mg By Mouth 4 times a day For DX- MUSCLE SPASMS 20 mg 12/12 Inactiv e 2023 72841 27141 1 4 times a day By Mouth False Calcium citrate 250 mg tablet Once daily 4 TABLET BY MOUTH For DX- SUPPLEMENT 250 mg calci 12/12 Inactiv e 2023 Once daily By Mouth False Co Q-10 100 mg capsule 100 mg By Mouth Once daily For DX- SUPPLEMENT 100 mg 06/20 Inactiv e 2023 17334 40111 5 Once daily By Mouth False Furosemide 20 mg tablet [generic] 20 mg By Mouth Once daily For DX-CHF 20 mg 12/12 Inactiv e 2023 77099 68492 0 Once daily By Mouth False Gabapentin 300 mg capsule [generic] 300 mg By Mouth 3 times a day For DX- NEUROPATHY 300 mg 12/12 Inactiv e 2023 37258 75626 4 3 times a day By Mouth False Loratadine 10 mg tablet [generic] 10 mg By Mouth Once daily For DX- ALLERGIES 10 mg 2023 Active 2023 86133 83443 1 Once daily By Mouth False Miralax 17 gram/dose oral powder 17 gram/dose By Mouth IN THE MORNING Mix 1 TABLESPOON IN 8 OZ OF FLUID HOLD FOR LOOSE STOOLS For DX- CONSTIPATION 17 gram/do se 12/12 Inactiv e 2023 44787 60175 0 Once daily By Mouth False Paroxetine 30 mg tablet [generic] 30 mg By Mouth Once daily For DX- DEPRESSION 30 mg 2023 00/00 /0000 Active 2023 88673 03499 3 Once daily By Mouth False Potassium citrate ER 15 mEq (1,620 mg) tablet,exte nded release [generic] 15 mEq By Mouth 3 times a day For DX- SUPPLEMENT/DI URETIC USE/ HYPOCITRAUIRA DO NOT CRUSH 15 mEq 12/12 Inactiv e 2023 93850 85976 1 3 times a day By Mouth [...] For DX- DANDRUFF 12/12 Inactiv e 2023 01281 95127 4 3 times a week Topica l False Acetaminoph en 325 mg tablet [generic] TAKE 2 TABS (650MG) BY MOUTH EVERY 4 HOURS NEEDED FOR TEMP >100 NOT TO EXCEED 3GM/24HRS TAKE 2 TABS (650MG) BY MOUTH EVERY 4 HOURS NEEDED FOR TEMP >100 NOT TO EXCEED 3GM/24HRS For DX-FEVER 2 12/12 Inactiv e 2023 15959 69593 0 By Mouth False MILK OF MAGNESIA ADMINISTER 30 ML BY MOUTH ONCE DAILY NEEDED FOR CONSTIPATION X3 DAYS WITH NO BM. For DX- CONSTIPATION 30ML 12/12 Inactiv e 2023 72079 62469 9 By Mouth False Enema Disposable 19 gram-7 gram/118 mL ADMINISTER ONE ENEMA RECTALLY ONCE DAILY NEEDED FOR CONSTIPATION ON DAY 6 OF NO BM For DX- CONSTIPATION 12/12 Inactiv e 2023 37829 51307 1 Rectal False TUMS EXTRA STR 750MG TAKE (1) TABLET BY MOUTH THREE TIMES DAILY NEEDED FOR INDIGESTION For DX- INDIGESTION 1 12/12 Inactiv e 2023 88804 28162 8 By Mouth False Vitamin D3 25 [...] CONSTIPATION 10 mg 12/12 Inactiv e 2023 79633 04304 1 Rectal False Melatonin 3 mg tablet [generic] 3 mg By Mouth As Needed For DX-INSOMMIA 3 mg 12/12 Inactiv e 2023 02448 80422 8 By Mouth False Hydrocortis one 1 % topical cream [generic] 1 % Topical As Needed For DX- PAIN 1 % 12/12 Inactiv e 2023 22630 84216 1 Topica l False HYDROCORTIS ONE/PARMOXI NE [...] 5-10 50 mg 12/20 Inactiv e 2023 44158 74139 0 Every 4 hours as needed By Mouth False Tylenol 325 mg tablet 325 mg By Mouth Every 4 hours as needed For DX- PAIN PRN FOR MILD PAIN, DO NOT EXCEED 3000MG APAP/24 HOURS 325 mg 12/20 Inactiv e 2023 57505 32304 0 Every 4 hours as needed By Mouth False Baclofen 20 mg tablet [generic] 20 mg By Mouth 4 times a day For MUSCLE SPASMS 20 mg 12/20 Inactiv e 2023 99077 90818 1 4 times a day By Mouth False Calcium citrate 250 mg tablet [generic] Once daily TAKE 4 TABLETS (1000MG) BY MOUTH For SUPPLEMENT 1000 MG 06/26 Inactiv e 2023 79455 00576 6 Once daily By Mouth False Dulcolax (bisacodyl) 10 mg rectal suppository 10 mg Rectal Once daily For CONSTIPATION *MAY HOLD FOR LOOSE STOOLS* 10 mg 2023 Active 2023 26305 12386 1 Once daily Rectal False Gabapentin 300 mg capsule [generic] 300 mg By Mouth 3 times a day For NEUROPATHY 300 mg 2023 Active 2023 64003 34469 4 3 times a day By Mouth False Potassium citrate ER 15 mEq (1,620 mg) tablet,exte nded release [generic] 15 mEq By Mouth 3 times a day For SUPPLEMENT/DI URETIC USE/HYPOCITRA URIA 15 mEq 06/11 Inactiv e 2023 35585 65705 1 3 times a day By Mouth False Potassium chloride ER 20 mEq tablet,exte nded release [generic] 20 mEq By Mouth 3 times a day *DO NOT CRUSH, CHEW OR BREAK* For SUPPLEMENT 20 mEq 12/18 Inactiv e 2023 55906 97419 1 3 times a day By Mouth False Tizanidine 4 mg tablet [generic] 4 mg By Mouth Once daily For MUSCLE SPASMS 4 mg 2023 Active 2023 24568 24440 0 Once daily By Mouth False Tylenol 325 mg tablet 2 tabs By Mouth Every 4 hours as needed For Fever >100 DO NOT EXCEED 3000 MG APAP/24 Hours 2 tabs 12/20 Inactiv e 2023 36429 63017 0 Every 4 hours as needed By Mouth False Dulcolax (bisacodyl) 10 mg rectal suppository Daily as needed For Constipation 1 sup 12/20 Inactiv e 2023 81793 82600 1 Daily as needed Rectal False Fleet Enema 19 gram-7 gram/118 mL 1 Rectal Daily as neededFor Constipation 1 12/20 Inactiv e 2023 30636 61936 6 Daily as needed Rectal False Milk of Magnesia 400 mg/5 mL oral suspension [Magnesium hydroxide] PRN 30ml By Mouth Daily as needed for constipation one time daily if no BM, on day 4 of no BM (PRN refer to instructions) For Constipation For Constipatioin 30ml 12/20 Inactiv e 2023 53538 61044 6 1 time By Mouth False Melatonin 3 mg tablet [generic] 3 mg By Mouth Once daily As Needed For INSOMNIA 3 mg 12/20 Inactiv e 2023 24627 36003 8 Once daily By Mouth False Hydrocortis one 1 % topical cream [generic] 1 % Rectal Four times daily as needed For hemorroid pain 1 % 12/20 Inactiv e 2023 14810 09344 1 Four times daily as needed Rectal False X-STGH ANTACID 750MG CHEW TAKE (1) TABLET BY MOUTH THREE TIMES DAILY NEEDED FOR INDIGESTION 12/20 Inactiv e 2023 40286 03220 4 Three times daily as needed Saline Mist 0.65 % nasal spray aerosol 0.65 % Nares Four times daily as needed For DRYNESS 0.65 % 12/20 Inactiv e 2023 20097 11524 8 Four times daily as needed Nares False Vicks Vaporub 4.7 %-1.2 %-2.6 % topical ointment Apply topically to chest Three times daily as needed For CONGESTION 4.7-1.2 -2.6 12/20 Inactiv e 2023 99553 71472 1 Three times daily as needed Topica l False VITAMIN D3 2000U CAP TAKE ONE (1) CAPSULE BY MOUTH DAILY* DO NOT CRUSH, CHEW OR BREAK* For Supplement 1 capsule 12/19 Inactiv e 2023 21852 30969 0 Once daily By Mouth False Potassium chloride ER 20 mEq tablet,exte nded release(par t/cryst) [generic] TAKE (1) TABLET BY MOUTH THREE TIMES DAILY (MORNING, AFTERNOON, EVENING)*DO NOT CRUSH, CHEW, OR BREAK* For SUPPLEMENT 20 MEQ 06/11 Inactiv e 2023 33482 11968 5 3 times a day By Mouth False Aspirin 81 mg tablet,camron yed release [generic] TAKE ONE (1) TABLET BY MOUTH ONCE DAILY*DO NOT CRUSH, CHEW OR BREAK* For CAD 81 MG 12/22 Inactiv e 2023 54769 81447 0 Once daily By Mouth False Furosemide 20 mg tablet [generic] TAKE 1 AND 1/2 TABLETS (30MG) BY MOUTH ONCE DAILY For CHF 30mg 2023 Active 2023 29915 09918 1 Once daily By Mouth False Polyethylen e glycol 3350 17 gram/dose oral powder [generic] MIX 17 GRAMS (1 CAPFUL) IN 60Z OF LIQUID AND DRINK BY MOUTH ONCE DAILY *HOLD FOR LOOSE STOOLS* For constipation 17 g 2023 Active 2023 85843 87067 3 Once daily By Mouth False Vitamin D3 50 mcg (2,000 unit) capsule Once daily TAKE ONE (1) CAPSULE BY MOUTH DAILY* DO NOT CRUSH, CHEW OR BREAK* For Supplement 1 capsule 02/07 Inactiv e 2023 62945 21518 2 Once daily By Mouth False Fleet Enema 19 gram-7 gram/118 mL 1 Rectal Daily as neededFor Constipation 1 2023 0000 Active 2023 07106 58373 6 Daily as needed Rectal False Tums E-X 300 mg (as calcium carbonate 750 mg) chewable tablet 1 tab By Mouth TAKE (1) TABLET BY MOUTH THREE TIMES DAILY NEEDED FOR INDIGESTION 1 tab 202300 /0000 Active 2023 32517 96585 1 Three times daily as needed By Mouth False Tylenol 325 mg tablet 2 tabs By Mouth Every 4 hours as needed For Fever >100 DO NOT EXCEED 3000 MG APAP/24 Hours 2 tabs 202300 /0000 Active 2023 80618 31340 0 Every 4 hours as needed By Mouth False Vicks Vaporub 4.7 %-1.2 %-2.6 % topical ointment Apply topically to chest Three times daily as needed For CONGESTION topical 202300 Active 2023 03026 22691 1 Three times daily as needed Topica l False Tylenol 325 mg tablet 2 tabs By Mouth Every 4 hours as needed For DX- PAIN PRN FOR MILD PAIN, DO NOT EXCEED 3000MG APAP/24 HOURS 2 tabs 202300 Active 2023 86836 55898 0 Every 4 hours as needed By Mouth False Tramadol 50 mg tablet [generic] 1 tab By Mouth Every 4 hours as needed For DX- PAIN 5-10 1 tab 03/10 Inactiv e 2023 11300 80896 0 Every 4 hours as needed By Mouth False Saline Mist 0.65 % nasal spray aerosol 2 sprays Nares Four times daily as needed For DRYNESS 2 sprays 202300 / Active 2023 85185 53320 8 Four times daily as needed Nares False Dulcolax (bisacodyl) 10 mg rectal suppository Daily as needed For Constipation 1 sup 202300 / Active 2023 52386 62788 1 Daily as needed Rectal False Hydrocortis one-pramoxi ne 1 %-1 % rectal cream [generic] 1 mague Rectal Four times daily as needed For hemorroid pain 1 mague 202300 /0000 Active 2023 99104 83742 4 Four times daily as needed Rectal False Melatonin 3 mg tablet [generic] 1 tab By Mouth At bedtime as needed For INSOMNIA 1 tab 12/24 Inactiv e 2023 08881 10747 8 At bedtime as needed By Mouth False Milk of Magnesia 400 mg/5 mL oral suspension 30ml By Mouth Daily as needed Daily as needed for constipation one time daily if no BM, on day 4 of no BM (PRN refer to instructions) For Constipation For Constipatioin 30ml 2023 Active 2023 41737 83545 2 Daily as needed By Mouth False Baclofen 20 mg tablet [generic] 20 mg By Mouth 4 times a day For MUSCLE SPASMS 20 mg 2023 Active 2023 27802 65720 1 4 times a day By Mouth False Melatonin 3 mg tablet [generic] 1 tab By Mouth At bedtime as needed For INSOMNIA 1 tab 2023 Active 2023 18015 73129 8 At bedtime as needed By Mouth False Bactrim DS 800 mg-160 mg tablet 1 tab By Mouth Twice daily For URINARY TRACT INFECTION, SITE NOT SPECIFIED 1 tab 01/06 Inactiv e 2023 54640 09178 1 Twice daily By Mouth N39.0 False Cefdinir 300 mg capsule [generic] 300 mg By Mouth Twice daily For UTI 300 mg 01/07 Inactiv e 2023 32559 01516 0 Twice daily By Mouth False Cefdinir 300 mg capsule [generic] 300 mg By Mouth Twice daily For UTI 300 mg 01/17 Inactiv e 2023 20481 91382 0 Twice daily By Mouth False Zyrtec 10 mg tablet 10 mg By Mouth Once daily For sinus congestion 10 mg 01/22 Inactiv e 2023 46744 32332 0 Once daily By Mouth False Tobramycin 0.3 %-dexametha sone 0.1 % eye drops,suspe nsion [generic] 0.3-0.1 % Left Eye 4 times a day For eye infection 0.3-0.1 % 02/05 Inactiv e 2023 50060 24684 5 4 times a day Left Eye False Fluconazole 150 mg tablet [generic] 150 mg By Mouth 1 time For yeast infection 150 mg 02/15 Inactiv e 2023 14898 25810 2 1 time By Mouth False Tramadol 50 mg tablet [generic] 1 tab By Mouth Every 4 hours as needed For DX- PAIN 5-10 1 tab 2023 00/00 /0000 Active 2023 87683 56862 0 Every 4 hours as needed By Mouth False Tobramycin 0.3 %-dexametha sone 0.1 % eye drops,suspe nsion [generic] 1 drop Left Eye 4 times a day For Inflammation of left eye 1 drop 05/08 Inactiv e 2023 01533 61974 5 4 times a day Left Eye False Voltaren Arthritis Pain 1 % topical gel 2 gm Topical Twice daily to rigth shoulder for 2 weeks For pain 2 gm 05/08 Inactiv e 2023 00347 06386 1 Twice daily Topica l False Chlorthalid one 25 mg tablet [generic] 12.5mg By Mouth Once daily For HTN 12.5mg 05/06 Inactiv e 2023 04846 55254 0 Once daily By Mouth False Chlorthalid one 25 mg tablet [generic] 12.5mg By Mouth Once daily For HTN 12.5mg 05/07 Inactiv e 2023 88084 70855 0 Once daily By Mouth False Chlorthalid one 25 mg tablet [generic] 05/07 Inactiv e 2023 46318 02442 0 Chlorthalid one 25 mg tablet [generic] 12.5mg By Mouth Once daily For HTN 12.5mg 06/26 Inactiv e 2023 84606 93281 0 Once daily By Mouth False Norvasc 5 mg tablet 5mg By Mouth Once daily, hold medication if systolic is less than 90 For HYPERTENSIVE HEART DISEASE WITHOUT HEART FAILURE 5mg 06/03 Inactiv e 2023 12407 66363 1 Once daily By Mouth I11.9 False Norvasc 5 mg tablet 5mg By Mouth Once daily, hold medication if systolic is less than 90 For HYPERTENSIVE HEART DISEASE WITHOUT HEART FAILURE 5mg 06/03 Inactiv e 2023 94237 71253 1 Once daily By Mouth I11.9 False Norvasc 5 mg tablet 5mg By Mouth Once daily, hold medication if systolic is less than 90 For HYPERTENSIVE HEART DISEASE WITHOUT HEART FAILURE 5mg 06/26 Inactiv e 2023 25466 91781 1 Once daily By Mouth I11.9 False [...] 10 mg 2023 00/00 /0000 Active 2023 20397 95750 1 Once daily By Mouth False DISCONTINUE [...] CAD 81 mg 06/14 Inactiv e 2023 70221 49985 9 Once daily By Mouth False Aspirin 81 mg tablet,camron yed release [generic] 06/14 Inactiv e 2023 76275 78612 9 Aspirin 81 mg tablet,camron yed release [generic] 81 mg By Mouth Once daily Do not crush, chew, or break For CAD 81 mg 06/154 Inactiv e 2023 57178 49322 9 Once daily By Mouth False Cefpodoxime 200 mg tablet [generic] 200mg By Mouth Twice daily For UTI 200mg 07/04 Inactiv e 2023 91485 67701 0 Twice daily By Mouth False Calcium citrate 250 mg tablet [generic] 06/26 Inactiv e 2023 87885 93103 6 Calcium citrate 250 mg tablet [generic] Once daily TAKE 4 TABLETS (1000MG) BY MOUTH For SUPPLEMENT 500 MG 2023 Active 2023 63062 47826 6 Once daily By Mouth False Norvasc 5 mg tablet 7.5 mg By Mouth Once daily Hold medication if SBP <90 For HYPERTENSIVE HEART DISEASE WITHOUT HEART FAILURE 7.5 mg 06/30 Inactiv e 2023 36441 24793 1 Once daily By Mouth I11.9 False Norvasc 5 mg tablet 7.5 mg By Mouth Once daily Hold medication if SBP <90 For HYPERTENSIVE HEART DISEASE WITHOUT HEART FAILURE 7.5 mg 2023 Active 2023 64608 43521 1 Once daily By Mouth I11.9 False Simethicone 125 mg capsule [generic] 2 capule By Mouth Twice daily as needed For bloating/gas pain 2 capule 2023 Active 2023 00414 14718 0 Twice daily as needed By Mouth False Cepacol Sore Throat (benzocaine -menthol) 15 mg-2.6 mg lozenges 2 lozenges By Mouth Every 6 hours as needed For sore throat 2 lozenge s 2023 Active 2023 97044 53302 6 Every 6 hours as needed By Mouth False Cefepime 1 gram solution for injection [generic] 1g Intramuscular Every 12 hours 1g intramuscular ly ever 12 hours For UTI 1g 2023 Active 2023 18875 61822 4 Every 12 hours Intram uscula r False Nystatin 100,000 unit/gram topical cream [generic] 100,000 unit Topical As Needed For DX- EXCORIATION 100,000 unit 12/12 Inactiv e 2023 06283 45642 5 Topica l False Vicks Vaporub 4.7 %-1.2 %-2.6 % topical ointment 4.7-1.2-2.6 Topical 3 times a day As Needed For DX- CONGESTION 4.7-1.2 -2.6 12/12 Inactiv e 2023 79840 71232 1 3 times a day Topica l False Ketoconazol e 2 % shampoo [generic] APPLY SHAMPOO TOPICALLY TO SCALP DURING HAIR WASHINGDX: ELVIA DERM OF SCALP For DX- ELVIA DERM OF SCALP 12/12 Inactiv e 2023 55404 90248 4 Topica l False THERA SILICONE SKIN GUARD Topical Twice daily 1 APPLICATION TOPICALLY IN THE MORNING AND AT BEDTIME TO SCROTUM For DX- PREVENTION 2023 Active 2023 Twice daily Topica l False Selenium sulfide 2.5 % lotion [generic] 2.5 % Topical EVERY MONDAY, MONDAY AND MONDAY AFTER SHOWER For DANDRUFF 2.5 % 202300 Active 2023 48978 81790 4 3 times a week Topica l False Nystatin (bulk) 100 million unit powder [generic] 100 million Topical Twice daily as needed For EXOCORATION 100 million 12/20 Inactiv e 2023 26687 91497 1 Twice daily as needed Topica l False Ketoconazol e 2 % shampoo [generic] Once daily APPLY SHAMPOO TOPICALLY TO SCALP DURING HAIR WASHING ON SHOWER DAYS- , , MON For ELVIA DERM OF SCAP 2 % 202300 Active 2023 17008 00095 4 Once daily Topica l False Nystatin 100,000 unit/gram topical cream [generic] 1 mague Topical Twice daily as needed For EXOCORATION 1 mague 06/05 Inactiv e 2023 44906 96119 5 Twice daily as needed Topica l False Nystatin 100,000 unit/gram topical powder [generic] 100,000 unit Topical Twice daily to scrotum with AM and PM care For Scrotal excoriation 100,000 unit 06/05 Inactiv e 2023 28803 37406 5 Twice daily Topica l False Problems [...] adjustment 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 Active N31.9 Neuromuscular dysfun ction of bladder, unspecified 07/21/2023 Active VITAL SIGNS Date Time Diastolic blood pressure Systolic blood pressure Body height Body weight Temperature SpO2 Blood Sugar Pulse Respirations 128 09025 0 80.00 mm[Hg] - Sitting 154.00 mm[Hg] - Sitting 129 30481 3 83.00 mm[Hg] - Sitting 174.00 mm[Hg] - Sitting 130 78055 5 78.00 mm[Hg] - Sitting 152.00 mm[Hg] - Sitting 36610 201 11909 1 87.00 mm[Hg] - Sitting 189.00 mm[Hg] - Sitting 49464 202 40814 2 76.00 mm[Hg] - Sitting 136.00 mm[Hg] - Sitting 10599 203 47321 2 259.80 [place] 77496 203 02214 5 93.00 mm[Hg] - Sitting 137.00 mm[Hg] - Sitting 90887 204 24956 2 259.40 NI 82413 204 03681 1 78.00 mm[Hg] - Sitting 144.00 mm[Hg] - Sitting 63038 205 95396 4 85.00 mm[Hg] - Sitting 142.00 mm[Hg] - Sitting 43323 206 44164 9 76.00 mm[Hg] - Sitting 132.00 mm[Hg] - Sitting 07163 208 11648 9 82.00 mm[Hg] - Sitting 128.00 mm[Hg] - Sitting 73034 209 18375 2 78.00 mm[Hg] - Sitting 130.00 mm[Hg] - Sitting 65016 210 41039 6 80.00 mm[Hg] - Sitting 132.00 mm[Hg] - Sitting 35260 211 30235 5 78.00 mm[Hg] - Sitting 125.00 mm[Hg] - Sitting 56599 216 73065 1 254.10 NI 08459 216 17380 2 79.00 mm[Hg] - Sitting 157.00 mm[Hg] - Sitting 73 NI 254.10 NI 36.30 Tympanic 95.00 % 72.00/ min 16.00/min 22394 216 05026 4 98.80 Tympanic 70110 216 66219 2 78.00 mm[Hg] - Sitting 164.00 mm[Hg] - Sitting 87775 217 90398 3 98.20 Tympanic 80119 217 61264 5 73.00 mm[Hg] - Sitting 159.00 mm[Hg] - Sitting 88499 217 43488 9 98.40 Forehead Scan 13187 218 96885 3 97.90 Tympanic 93016 218 35332 5 77.00 mm[Hg] - Sitting 137.00 mm[Hg] - Sitting 63099 219 75446 0 97.70 Tympanic 99852 219 90630 6 97.60 Tympanic 50301 219 59989 4 76.00 mm[Hg] - Sitting 139.00 mm[Hg] - Sitting 58815 219 04666 4 97.80 Forehead Scan 24401 220 89085 9 97.90 Tympanic 90339 220 52464 9 76.00 mm[Hg] - Sitting 138.00 mm[Hg] - Sitting 75875 220 12242 6 98.10 Tympanic 67640 221 09971 5 67.00 mm[Hg] - Sitting 142.00 mm[Hg] - Sitting 38057 221 45727 8 98.20 Tympanic 15327 221 44670 0 98.30 Tympanic 88415 222 96907 7 98.20 Tympanic 14311 222 46734 8 97.90 Tympanic 22094 223 84803 3 98.20 Tympanic 66558 223 75659 3 98.00 Tympanic 96338 224 67673 0 59.00 mm[Hg] - Sitting 111.00 mm[Hg] - Sitting 98.40 Forehead Scan 95.00 % 56.00/ min 18.00/min 25090 224 81045 9 98.20 Forehead Scan 91617 224 44202 3 97.90 Tympanic 68112 225 31963 4 98.20 Tympanic 88554 225 03754 8 97.50 Forehead Scan 94526 228 72599 0 55.00 mm[Hg] - Sitting 118.00 mm[Hg] [...]
--- OUTSIDE RECORDS SUMMARY | 2024-07-26 11:25 | External Medical Summary | Continuity Of Care Document ---
Author Name Unknown Address [address] [place] [address] Organization [facility] () Care Team Providers Care Block Machine Operator Name Role Phone DO Pritchett Amy Primary Care Provider [phone] Allergies Allergy Reaction Start Date End Date Status AMINOGLYCOSIDES Active CIPRO Active GENTAMICIN Active NSAIDS (NON-STEROIDAL ANTI-INFLAMMATORY DRUG) 0 Active IBUPROFEN Active QUINOLONES Active VALIUM Active Medications Medication Instructions Dosage Start Date End Date Status Order Date Drug Code Frequency Route of Admin Diagnosis Code Substitutions Allowed Spikevax [id number](1 2y up)(PF) 50 mcg/0.5 mL intramuscul ar suspension [COVID [id number](12 up)(andu)(P F)] 0.5mL Intramuscular 1 time Monitory 15 Minutes post injection for adverse effects; record site/temp For COVID 19 PREVENTION 0.5mL 01/02 Inactiv e 2023 99573 52292 4 1 time Intram uscula r False [facility] - Nurse initials indicate verificatio n that [id number] vaccine was administere d by [facility] Representat jon 1 Intramuscular 1 time ( Indicate vaccine type) For vaccine 1 05/03 Inactiv e 2023 1 time Intram uscula r False Lisinopril 40 mg tablet [generic] TAKE ONE (1) TABLET BY MOUTH IN THE MORNING. For DX- HTN 1 2023 Active 2023 73271 65501 1 Once daily By Mouth False Tizanidine 2 mg tablet [generic] TAKE ONE (1) TABLET BY MOUTH ONCE DAILY For MUSCLE SPASM 1 2023 Active 2023 75917 29261 0 Once daily By Mouth M62.838 False Tamsulosin 0.4 mg capsule [generic] TAKE (1) CAPSULE BY MOUTH AT BEDTIME For SPASMS 1 2023 Active 2023 11859 20764 0 Once daily By Mouth False Aspirin 81 mg tablet Once daily 1 TABLET BY MOUTH IN THE MORNING For DX- CAD DO NOT CRUSH, CHEW OR BREAK 81 mg 06/12 Inactiv e 2023 Once daily By Mouth False Baclofen 20 mg tablet [generic] 20 mg By Mouth 4 times a day For DX- MUSCLE SPASMS 20 mg 12/12 Inactiv e 2023 58499 14756 1 4 times a day By Mouth False Calcium citrate 250 mg tablet Once daily 4 TABLET BY MOUTH For DX- SUPPLEMENT 250 mg calci 12/12 Inactiv e 2023 Once daily By Mouth False Co Q-10 100 mg capsule 100 mg By Mouth Once daily For DX- SUPPLEMENT 100 mg 06/20 Inactiv e 2023 13938 30329 5 Once daily By Mouth False Furosemide 20 mg tablet [generic] 20 mg By Mouth Once daily For DX-CHF 20 mg 12/12 Inactiv e 2023 60127 18723 0 Once daily By Mouth False Gabapentin 300 mg capsule [generic] 300 mg By Mouth 3 times a day For DX- NEUROPATHY 300 mg 12/12 Inactiv e 2023 77201 98022 4 3 times a day By Mouth False Loratadine 10 mg tablet [generic] 10 mg By Mouth Once daily For DX- ALLERGIES 10 mg 2023 Active 2023 29763 32400 1 Once daily By Mouth False Miralax 17 gram/dose oral powder 17 gram/dose By Mouth IN THE MORNING Mix 1 TABLESPOON IN 8 OZ OF FLUID HOLD FOR LOOSE STOOLS For DX- CONSTIPATION 17 gram/do se 12/12 Inactiv e 2023 13869 73037 0 Once daily By Mouth False Paroxetine 30 mg tablet [generic] 30 mg By Mouth Once daily For DX- DEPRESSION 30 mg 2023 00/00 /0000 Active 2023 73628 47944 3 Once daily By Mouth False Potassium citrate ER 15 mEq (1,620 mg) tablet,exte nded release [generic] 15 mEq By Mouth 3 times a day For DX- SUPPLEMENT/DI URETIC USE/ HYPOCITRAUIRA DO NOT CRUSH 15 mEq 12/12 Inactiv e 2023 33108 57538 1 3 times a day By Mouth [...] For DX- DANDRUFF 12/12 Inactiv e 2023 17190 42112 4 3 times a week Topica l False Acetaminoph en 325 mg tablet [generic] TAKE 2 TABS (650MG) BY MOUTH EVERY 4 HOURS NEEDED FOR TEMP >100 NOT TO EXCEED 3GM/24HRS TAKE 2 TABS (650MG) BY MOUTH EVERY 4 HOURS NEEDED FOR TEMP >100 NOT TO EXCEED 3GM/24HRS For DX-FEVER 2 12/12 Inactiv e 2023 41028 95453 0 By Mouth False MILK OF MAGNESIA ADMINISTER 30 ML BY MOUTH ONCE DAILY NEEDED FOR CONSTIPATION X3 DAYS WITH NO BM. For DX- CONSTIPATION 30ML 12/12 Inactiv e 2023 39783 36147 9 By Mouth False Enema Disposable 19 gram-7 gram/118 mL ADMINISTER ONE ENEMA RECTALLY ONCE DAILY NEEDED FOR CONSTIPATION ON DAY 6 OF NO BM For DX- CONSTIPATION 12/12 Inactiv e 2023 67327 02307 1 Rectal False TUMS EXTRA STR 750MG TAKE (1) TABLET BY MOUTH THREE TIMES DAILY NEEDED FOR INDIGESTION For DX- INDIGESTION 1 12/12 Inactiv e 2023 78487 14639 8 By Mouth False Vitamin D3 25 [...] CONSTIPATION 10 mg 12/12 Inactiv e 2023 65928 00961 1 Rectal False Melatonin 3 mg tablet [generic] 3 mg By Mouth As Needed For DX-INSOMMIA 3 mg 12/12 Inactiv e 2023 41175 97698 8 By Mouth False Hydrocortis one 1 % topical cream [generic] 1 % Topical As Needed For DX- PAIN 1 % 12/12 Inactiv e 2023 38060 53089 1 Topica l False HYDROCORTIS ONE/PARMOXI NE [...] 5-10 50 mg 12/20 Inactiv e 2023 07732 21228 0 Every 4 hours as needed By Mouth False Tylenol 325 mg tablet 325 mg By Mouth Every 4 hours as needed For DX- PAIN PRN FOR MILD PAIN, DO NOT EXCEED 3000MG APAP/24 HOURS 325 mg 12/20 Inactiv e 2023 53970 35621 0 Every 4 hours as needed By Mouth False Baclofen 20 mg tablet [generic] 20 mg By Mouth 4 times a day For MUSCLE SPASMS 20 mg 12/20 Inactiv e 2023 99292 25212 1 4 times a day By Mouth False Calcium citrate 250 mg tablet [generic] Once daily TAKE 4 TABLETS (1000MG) BY MOUTH For SUPPLEMENT 1000 MG 06/26 Inactiv e 2023 80461 02276 6 Once daily By Mouth False Dulcolax (bisacodyl) 10 mg rectal suppository 10 mg Rectal Once daily For CONSTIPATION *MAY HOLD FOR LOOSE STOOLS* 10 mg 2023 Active 2023 24942 08447 1 Once daily Rectal False Gabapentin 300 mg capsule [generic] 300 mg By Mouth 3 times a day For NEUROPATHY 300 mg 2023 Active 2023 00661 76204 4 3 times a day By Mouth False Potassium citrate ER 15 mEq (1,620 mg) tablet,exte nded release [generic] 15 mEq By Mouth 3 times a day For SUPPLEMENT/DI URETIC USE/HYPOCITRA URIA 15 mEq 06/11 Inactiv e 2023 44014 30848 1 3 times a day By Mouth False Potassium chloride ER 20 mEq tablet,exte nded release [generic] 20 mEq By Mouth 3 times a day *DO NOT CRUSH, CHEW OR BREAK* For SUPPLEMENT 20 mEq 12/18 Inactiv e 2023 78048 48586 1 3 times a day By Mouth False Tizanidine 4 mg tablet [generic] 4 mg By Mouth Once daily For MUSCLE SPASMS 4 mg 2023 Active 2023 05174 27439 0 Once daily By Mouth False Tylenol 325 mg tablet 2 tabs By Mouth Every 4 hours as needed For Fever >100 DO NOT EXCEED 3000 MG APAP/24 Hours 2 tabs 12/20 Inactiv e 2023 44246 50533 0 Every 4 hours as needed By Mouth False Dulcolax (bisacodyl) 10 mg rectal suppository Daily as needed For Constipation 1 sup 12/20 Inactiv e 2023 16195 70280 1 Daily as needed Rectal False Fleet Enema 19 gram-7 gram/118 mL 1 Rectal Daily as neededFor Constipation 1 12/20 Inactiv e 2023 93642 61488 6 Daily as needed Rectal False Milk of Magnesia 400 mg/5 mL oral suspension [Magnesium hydroxide] PRN 30ml By Mouth Daily as needed for constipation one time daily if no BM, on day 4 of no BM (PRN refer to instructions) For Constipation For Constipatioin 30ml 12/20 Inactiv e 2023 30288 63737 6 1 time By Mouth False Melatonin 3 mg tablet [generic] 3 mg By Mouth Once daily As Needed For INSOMNIA 3 mg 12/20 Inactiv e 2023 02313 86435 8 Once daily By Mouth False Hydrocortis one 1 % topical cream [generic] 1 % Rectal Four times daily as needed For hemorroid pain 1 % 12/20 Inactiv e 2023 97622 88923 1 Four times daily as needed Rectal False X-STGH ANTACID 750MG CHEW TAKE (1) TABLET BY MOUTH THREE TIMES DAILY NEEDED FOR INDIGESTION 12/20 Inactiv e 2023 74277 54369 4 Three times daily as needed Saline Mist 0.65 % nasal spray aerosol 0.65 % Nares Four times daily as needed For DRYNESS 0.65 % 12/20 Inactiv e 2023 29483 74755 8 Four times daily as needed Nares False Vicks Vaporub 4.7 %-1.2 %-2.6 % topical ointment Apply topically to chest Three times daily as needed For CONGESTION 4.7-1.2 -2.6 12/20 Inactiv e 2023 89198 43418 1 Three times daily as needed Topica l False VITAMIN D3 2000U CAP TAKE ONE (1) CAPSULE BY MOUTH DAILY* DO NOT CRUSH, CHEW OR BREAK* For Supplement 1 capsule 12/19 Inactiv e 2023 43941 19694 0 Once daily By Mouth False Potassium chloride ER 20 mEq tablet,exte nded release(par t/cryst) [generic] TAKE (1) TABLET BY MOUTH THREE TIMES DAILY (MORNING, AFTERNOON, EVENING)*DO NOT CRUSH, CHEW, OR BREAK* For SUPPLEMENT 20 MEQ 06/11 Inactiv e 2023 98783 00628 5 3 times a day By Mouth False Aspirin 81 mg tablet,camron yed release [generic] TAKE ONE (1) TABLET BY MOUTH ONCE DAILY*DO NOT CRUSH, CHEW OR BREAK* For CAD 81 MG 12/22 Inactiv e 2023 59633 84850 0 Once daily By Mouth False Furosemide 20 mg tablet [generic] TAKE 1 AND 1/2 TABLETS (30MG) BY MOUTH ONCE DAILY For CHF 30mg 2023 Active 2023 28970 74127 1 Once daily By Mouth False Polyethylen e glycol 3350 17 gram/dose oral powder [generic] MIX 17 GRAMS (1 CAPFUL) IN 60Z OF LIQUID AND DRINK BY MOUTH ONCE DAILY *HOLD FOR LOOSE STOOLS* For constipation 17 g 2023 Active 2023 47960 33206 3 Once daily By Mouth False Vitamin D3 50 mcg (2,000 unit) capsule Once daily TAKE ONE (1) CAPSULE BY MOUTH DAILY* DO NOT CRUSH, CHEW OR BREAK* For Supplement 1 capsule 02/07 Inactiv e 2023 71788 54905 2 Once daily By Mouth False Fleet Enema 19 gram-7 gram/118 mL 1 Rectal Daily as neededFor Constipation 1 2023 0000 Active 2023 21032 10835 6 Daily as needed Rectal False Tums E-X 300 mg (as calcium carbonate 750 mg) chewable tablet 1 tab By Mouth TAKE (1) TABLET BY MOUTH THREE TIMES DAILY NEEDED FOR INDIGESTION 1 tab 202300 /0000 Active 2023 22661 87290 1 Three times daily as needed By Mouth False Tylenol 325 mg tablet 2 tabs By Mouth Every 4 hours as needed For Fever >100 DO NOT EXCEED 3000 MG APAP/24 Hours 2 tabs 202300 /0000 Active 2023 23592 16462 0 Every 4 hours as needed By Mouth False Vicks Vaporub 4.7 %-1.2 %-2.6 % topical ointment Apply topically to chest Three times daily as needed For CONGESTION topical 202300 Active 2023 03779 66876 1 Three times daily as needed Topica l False Tylenol 325 mg tablet 2 tabs By Mouth Every 4 hours as needed For DX- PAIN PRN FOR MILD PAIN, DO NOT EXCEED 3000MG APAP/24 HOURS 2 tabs 202300 Active 2023 27427 70415 0 Every 4 hours as needed By Mouth False Tramadol 50 mg tablet [generic] 1 tab By Mouth Every 4 hours as needed For DX- PAIN 5-10 1 tab 03/10 Inactiv e 2023 20314 76739 0 Every 4 hours as needed By Mouth False Saline Mist 0.65 % nasal spray aerosol 2 sprays Nares Four times daily as needed For DRYNESS 2 sprays 202300 / Active 2023 55675 49155 8 Four times daily as needed Nares False Dulcolax (bisacodyl) 10 mg rectal suppository Daily as needed For Constipation 1 sup 202300 / Active 2023 60769 11738 1 Daily as needed Rectal False Hydrocortis one-pramoxi ne 1 %-1 % rectal cream [generic] 1 mague Rectal Four times daily as needed For hemorroid pain 1 mague 202300 /0000 Active 2023 86999 79140 4 Four times daily as needed Rectal False Melatonin 3 mg tablet [generic] 1 tab By Mouth At bedtime as needed For INSOMNIA 1 tab 12/24 Inactiv e 2023 47337 02553 8 At bedtime as needed By Mouth False Milk of Magnesia 400 mg/5 mL oral suspension 30ml By Mouth Daily as needed Daily as needed for constipation one time daily if no BM, on day 4 of no BM (PRN refer to instructions) For Constipation For Constipatioin 30ml 2023 Active 2023 16588 71360 2 Daily as needed By Mouth False Baclofen 20 mg tablet [generic] 20 mg By Mouth 4 times a day For MUSCLE SPASMS 20 mg 2023 Active 2023 00593 25286 1 4 times a day By Mouth False Melatonin 3 mg tablet [generic] 1 tab By Mouth At bedtime as needed For INSOMNIA 1 tab 2023 Active 2023 55319 65976 8 At bedtime as needed By Mouth False Bactrim DS 800 mg-160 mg tablet 1 tab By Mouth Twice daily For URINARY TRACT INFECTION, SITE NOT SPECIFIED 1 tab 01/06 Inactiv e 2023 08379 08710 1 Twice daily By Mouth N39.0 False Cefdinir 300 mg capsule [generic] 300 mg By Mouth Twice daily For UTI 300 mg 01/07 Inactiv e 2023 49340 09687 0 Twice daily By Mouth False Cefdinir 300 mg capsule [generic] 300 mg By Mouth Twice daily For UTI 300 mg 01/17 Inactiv e 2023 95924 42985 0 Twice daily By Mouth False Zyrtec 10 mg tablet 10 mg By Mouth Once daily For sinus congestion 10 mg 01/22 Inactiv e 2023 91842 74342 0 Once daily By Mouth False Tobramycin 0.3 %-dexametha sone 0.1 % eye drops,suspe nsion [generic] 0.3-0.1 % Left Eye 4 times a day For eye infection 0.3-0.1 % 02/05 Inactiv e 2023 04951 93126 5 4 times a day Left Eye False Fluconazole 150 mg tablet [generic] 150 mg By Mouth 1 time For yeast infection 150 mg 02/15 Inactiv e 2023 82368 45442 2 1 time By Mouth False Tramadol 50 mg tablet [generic] 1 tab By Mouth Every 4 hours as needed For DX- PAIN 5-10 1 tab 2023 00/00 /0000 Active 2023 87852 35150 0 Every 4 hours as needed By Mouth False Tobramycin 0.3 %-dexametha sone 0.1 % eye drops,suspe nsion [generic] 1 drop Left Eye 4 times a day For Inflammation of left eye 1 drop 05/08 Inactiv e 2023 27860 12125 5 4 times a day Left Eye False Voltaren Arthritis Pain 1 % topical gel 2 gm Topical Twice daily to rigth shoulder for 2 weeks For pain 2 gm 05/08 Inactiv e 2023 58518 57287 1 Twice daily Topica l False Chlorthalid one 25 mg tablet [generic] 12.5mg By Mouth Once daily For HTN 12.5mg 05/06 Inactiv e 2023 54191 42800 0 Once daily By Mouth False Chlorthalid one 25 mg tablet [generic] 12.5mg By Mouth Once daily For HTN 12.5mg 05/07 Inactiv e 2023 11929 17546 0 Once daily By Mouth False Chlorthalid one 25 mg tablet [generic] 05/07 Inactiv e 2023 58709 21137 0 Chlorthalid one 25 mg tablet [generic] 12.5mg By Mouth Once daily For HTN 12.5mg 06/26 Inactiv e 2023 04537 00343 0 Once daily By Mouth False Norvasc 5 mg tablet 5mg By Mouth Once daily, hold medication if systolic is less than 90 For HYPERTENSIVE HEART DISEASE WITHOUT HEART FAILURE 5mg 06/03 Inactiv e 2023 46458 55001 1 Once daily By Mouth I11.9 False Norvasc 5 mg tablet 5mg By Mouth Once daily, hold medication if systolic is less than 90 For HYPERTENSIVE HEART DISEASE WITHOUT HEART FAILURE 5mg 06/03 Inactiv e 2023 03496 39000 1 Once daily By Mouth I11.9 False Norvasc 5 mg tablet 5mg By Mouth Once daily, hold medication if systolic is less than 90 For HYPERTENSIVE HEART DISEASE WITHOUT HEART FAILURE 5mg 06/26 Inactiv e 2023 00686 54459 1 Once daily By Mouth I11.9 False [...] 10 mg 2023 00/00 /0000 Active 2023 39400 17661 1 Once daily By Mouth False DISCONTINUE [...] CAD 81 mg 06/14 Inactiv e 2023 80897 27818 9 Once daily By Mouth False Aspirin 81 mg tablet,camron yed release [generic] 06/14 Inactiv e 2023 75672 39840 9 Aspirin 81 mg tablet,camron yed release [generic] 81 mg By Mouth Once daily Do not crush, chew, or break For CAD 81 mg 06/154 Inactiv e 2023 37855 21588 9 Once daily By Mouth False Cefpodoxime 200 mg tablet [generic] 200mg By Mouth Twice daily For UTI 200mg 07/04 Inactiv e 2023 97136 98703 0 Twice daily By Mouth False Calcium citrate 250 mg tablet [generic] 06/26 Inactiv e 2023 92557 39916 6 Calcium citrate 250 mg tablet [generic] Once daily TAKE 4 TABLETS (1000MG) BY MOUTH For SUPPLEMENT 500 MG 2023 Active 2023 91595 70772 6 Once daily By Mouth False Norvasc 5 mg tablet 7.5 mg By Mouth Once daily Hold medication if SBP <90 For HYPERTENSIVE HEART DISEASE WITHOUT HEART FAILURE 7.5 mg 06/30 Inactiv e 2023 37684 16764 1 Once daily By Mouth I11.9 False Norvasc 5 mg tablet 7.5 mg By Mouth Once daily Hold medication if SBP <90 For HYPERTENSIVE HEART DISEASE WITHOUT HEART FAILURE 7.5 mg 2023 Active 2023 67872 83231 1 Once daily By Mouth I11.9 False Simethicone 125 mg capsule [generic] 2 capule By Mouth Twice daily as needed For bloating/gas pain 2 capule 2023 Active 2023 53067 10351 0 Twice daily as needed By Mouth False Cepacol Sore Throat (benzocaine -menthol) 15 mg-2.6 mg lozenges 2 lozenges By Mouth Every 6 hours as needed For sore throat 2 lozenge s 2023 Active 2023 83559 74801 6 Every 6 hours as needed By Mouth False Cefepime 1 gram solution for injection [generic] 1g Intramuscular Every 12 hours 1g intramuscular ly ever 12 hours For UTI 1g 2023 Active 2023 41638 80506 4 Every 12 hours Intram uscula r False Nystatin 100,000 unit/gram topical cream [generic] 100,000 unit Topical As Needed For DX- EXCORIATION 100,000 unit 12/12 Inactiv e 2023 65589 58033 5 Topica l False Vicks Vaporub 4.7 %-1.2 %-2.6 % topical ointment 4.7-1.2-2.6 Topical 3 times a day As Needed For DX- CONGESTION 4.7-1.2 -2.6 12/12 Inactiv e 2023 38401 14775 1 3 times a day Topica l False Ketoconazol e 2 % shampoo [generic] APPLY SHAMPOO TOPICALLY TO SCALP DURING HAIR WASHINGDX: ELVIA DERM OF SCALP For DX- ELVIA DERM OF SCALP 12/12 Inactiv e 2023 21355 62166 4 Topica l False THERA SILICONE SKIN GUARD Topical Twice daily 1 APPLICATION TOPICALLY IN THE MORNING AND AT BEDTIME TO SCROTUM For DX- PREVENTION 2023 Active 2023 Twice daily Topica l False Selenium sulfide 2.5 % lotion [generic] 2.5 % Topical EVERY MONDAY, MONDAY AND MONDAY AFTER SHOWER For DANDRUFF 2.5 % 202300 Active 2023 25942 49176 4 3 times a week Topica l False Nystatin (bulk) 100 million unit powder [generic] 100 million Topical Twice daily as needed For EXOCORATION 100 million 12/20 Inactiv e 2023 68679 67586 1 Twice daily as needed Topica l False Ketoconazol e 2 % shampoo [generic] Once daily APPLY SHAMPOO TOPICALLY TO SCALP DURING HAIR WASHING ON SHOWER DAYS- , , MON For ELVIA DERM OF SCAP 2 % 202300 Active 2023 77977 80910 4 Once daily Topica l False Nystatin 100,000 unit/gram topical cream [generic] 1 mague Topical Twice daily as needed For EXOCORATION 1 mague 06/05 Inactiv e 2023 02119 12041 5 Twice daily as needed Topica l False Nystatin 100,000 unit/gram topical powder [generic] 100,000 unit Topical Twice daily to scrotum with AM and PM care For Scrotal excoriation 100,000 unit 06/05 Inactiv e 2023 15398 51452 5 Twice daily Topica l False Problems [...] Temperature SpO2 Blood Sugar Pulse Respirations 128 44990 0 80.00 mm[Hg] - Sitting 154.00 mm[Hg] - Sitting 129 40842 3 83.00 mm[Hg] - Sitting 174.00 mm[Hg] - Sitting 130 28861 5 78.00 mm[Hg] - Sitting 152.00 mm[Hg] - Sitting 25684 201 91613 1 87.00 mm[Hg] - Sitting 189.00 mm[Hg] - Sitting 82433 202 62304 2 76.00 mm[Hg] - Sitting 136.00 mm[Hg] - Sitting 06283 203 51380 2 259.80 [place] 10982 203 85054 5 93.00 mm[Hg] - Sitting 137.00 mm[Hg] - Sitting 57951 204 32319 2 259.40 [place] 49825 204 88697 1 78.00 mm[Hg] - Sitting 144.00 mm[Hg] - Sitting 71611 205 77916 4 85.00 mm[Hg] - Sitting 142.00 mm[Hg] - Sitting 49095 206 26440 9 76.00 mm[Hg] - Sitting 132.00 mm[Hg] - Sitting 55188 208 45937 9 82.00 mm[Hg] - Sitting 128.00 mm[Hg] - Sitting 49743 209 85789 2 78.00 mm[Hg] - Sitting 130.00 mm[Hg] - Sitting 15215 210 40553 6 80.00 mm[Hg] - Sitting 132.00 mm[Hg] - Sitting 16519 211 29087 5 78.00 mm[Hg] - Sitting 125.00 mm[Hg] - Sitting 44930 216 58156 1 254.10 NI 65542 216 06325 2 79.00 mm[Hg] - Sitting 157.00 mm[Hg] - Sitting 73 NI 254.10 NI 36.30 Tympanic 95.00 % 72.00/ min 16.00/min 05814 216 51910 4 98.80 Tympanic 48588 216 82567 2 78.00 mm[Hg] - Sitting 164.00 mm[Hg] - Sitting 51870 217 65571 3 98.20 Tympanic 11655 217 45893 5 73.00 mm[Hg] - Sitting 159.00 mm[Hg] - Sitting 07673 217 07158 9 98.40 Forehead Scan 40457 218 20299 3 97.90 Tympanic 46558 218 56335 5 77.00 mm[Hg] - Sitting 137.00 mm[Hg] - Sitting 52277 219 78657 0 97.70 Tympanic 11698 219 11025 6 97.60 Tympanic 38961 219 51245 4 76.00 mm[Hg] - Sitting 139.00 mm[Hg] - Sitting 46536 219 57465 4 97.80 Forehead Scan 55306 220 18181 9 97.90 Tympanic 76002 220 01482 9 76.00 mm[Hg] - Sitting 138.00 mm[Hg] - Sitting 57875 220 82406 6 98.10 Tympanic 55800 221 75717 5 67.00 mm[Hg] - Sitting 142.00 mm[Hg] - Sitting 17455 221 26537 8 98.20 Tympanic 54694 221 23550 0 98.30 Tympanic 26039 222 83240 7 98.20 Tympanic 60457 222 92765 8 97.90 Tympanic 57037 223 22493 3 98.20 Tympanic 97669 223 71581 3 98.00 Tympanic 92232 224 31437 0 59.00 mm[Hg] - Sitting 111.00 mm[Hg] - Sitting 98.40 Forehead Scan 95.00 % 56.00/ min 18.00/min 54637 224 56646 9 98.20 Forehead Scan 62409 224 64770 3 97.90 Tympanic 66388 225 41327 4 98.20 Tympanic 16826 225 01115 8 97.50 Forehead Scan Immunizations Vaccine Date [...]
--- OUTSIDE RECORDS SUMMARY | 2024-07-26 11:25 | External Medical Summary | Continuity Of Care Document ---
Author Name Unknown Address [address] [place] [address] Organization [facility] () Care Team Providers Care Dynamometer Tester Name Role Phone DO Pritchett Amy Primary Care Provider [phone] Allergies Allergy Reaction Start Date End Date Status AMINOGLYCOSIDES Active CIPRO Active GENTAMICIN Active NSAIDS (NON-STEROIDAL ANTI-INFLAMMATORY DRUG) 0 Active IBUPROFEN Active QUINOLONES Active VALIUM Active Medications Medication Instructions Dosage Start Date End Date Status Order Date Drug Code Frequency Route of Admin Diagnosis Code Substitutions Allowed Spikevax [id number](1 2y up)(PF) 50 mcg/0.5 mL intramuscul ar suspension [COVID [id number](12 up)(andu)(P F)] 0.5mL Intramuscular 1 time Monitory 15 Minutes post injection for adverse effects; record site/temp For COVID 19 PREVENTION 0.5mL 01/02 Inactiv e 2023 26159 17343 4 1 time Intram uscula r False [facility] - Nurse initials indicate verificatio n that [id number] vaccine was administere d by [facility]on 1 Intramuscular 1 time ( Indicate vaccine type) For vaccine 1 05/03 Inactiv e 2023 1 time Intram uscula r False Lisinopril 40 mg tablet [generic] TAKE ONE (1) TABLET BY MOUTH IN THE MORNING. For DX- HTN 1 2023 Active 2023 17680 56330 1 Once daily By Mouth False Tizanidine 2 mg tablet [generic] TAKE ONE (1) TABLET BY MOUTH ONCE DAILY For MUSCLE SPASM 1 2023 Active 2023 22853 82701 0 Once daily By Mouth M62.838 False Tamsulosin 0.4 mg capsule [generic] TAKE (1) CAPSULE BY MOUTH AT BEDTIME For SPASMS 1 2023 Active 2023 35911 97148 0 Once daily By Mouth False Aspirin 81 mg tablet Once daily 1 TABLET BY MOUTH IN THE MORNING For DX- CAD DO NOT CRUSH, CHEW OR BREAK 81 mg 06/12 Inactiv e 2023 Once daily By Mouth False Baclofen 20 mg tablet [generic] 20 mg By Mouth 4 times a day For DX- MUSCLE SPASMS 20 mg 12/12 Inactiv e 2023 22811 34363 1 4 times a day By Mouth False Calcium citrate 250 mg tablet Once daily 4 TABLET BY MOUTH For DX- SUPPLEMENT 250 mg calci 12/12 Inactiv e 2023 Once daily By Mouth False Co Q-10 100 mg capsule 100 mg By Mouth Once daily For DX- SUPPLEMENT 100 mg 06/20 Inactiv e 2023 44414 05782 5 Once daily By Mouth False Furosemide 20 mg tablet [generic] 20 mg By Mouth Once daily For DX-CHF 20 mg 12/12 Inactiv e 2023 90981 90495 0 Once daily By Mouth False Gabapentin 300 mg capsule [generic] 300 mg By Mouth 3 times a day For DX- NEUROPATHY 300 mg 12/12 Inactiv e 2023 43246 92757 4 3 times a day By Mouth False Loratadine 10 mg tablet [generic] 10 mg By Mouth Once daily For DX- ALLERGIES 10 mg 2023 Active 2023 13175 72160 1 Once daily By Mouth False Miralax 17 gram/dose oral powder 17 gram/dose By Mouth IN THE MORNING Mix 1 TABLESPOON IN 8 OZ OF FLUID HOLD FOR LOOSE STOOLS For DX- CONSTIPATION 17 gram/do se 12/12 Inactiv e 2023 20122 34950 0 Once daily By Mouth False Paroxetine 30 mg tablet [generic] 30 mg By Mouth Once daily For DX- DEPRESSION 30 mg 2023 00/00 /0000 Active 2023 46101 37087 3 Once daily By Mouth False Potassium citrate ER 15 mEq (1,620 mg) tablet,exte nded release [generic] 15 mEq By Mouth 3 times a day For DX- SUPPLEMENT/DI URETIC USE/ HYPOCITRAUIRA DO NOT CRUSH 15 mEq 12/12 Inactiv e 2023 87710 42442 1 3 times a day By Mouth [...] For DX- DANDRUFF 12/12 Inactiv e 2023 12020 81201 4 3 times a week Topica l False Acetaminoph en 325 mg tablet [generic] TAKE 2 TABS (650MG) BY MOUTH EVERY 4 HOURS NEEDED FOR TEMP >100 NOT TO EXCEED 3GM/24HRS TAKE 2 TABS (650MG) BY MOUTH EVERY 4 HOURS NEEDED FOR TEMP >100 NOT TO EXCEED 3GM/24HRS For DX-FEVER 2 12/12 Inactiv e 2023 46488 89876 0 By Mouth False MILK OF MAGNESIA ADMINISTER 30 ML BY MOUTH ONCE DAILY NEEDED FOR CONSTIPATION X3 DAYS WITH NO BM. For DX- CONSTIPATION 30ML 12/12 Inactiv e 2023 23527 91090 9 By Mouth False Enema Disposable 19 gram-7 gram/118 mL ADMINISTER ONE ENEMA RECTALLY ONCE DAILY NEEDED FOR CONSTIPATION ON DAY 6 OF NO BM For DX- CONSTIPATION 12/12 Inactiv e 2023 64223 83771 1 Rectal False TUMS EXTRA STR 750MG TAKE (1) TABLET BY MOUTH THREE TIMES DAILY NEEDED FOR INDIGESTION For DX- INDIGESTION 1 12/12 Inactiv e 2023 65489 07211 8 By Mouth False Vitamin D3 25 [...] CONSTIPATION 10 mg 12/12 Inactiv e 2023 11349 66537 1 Rectal False Melatonin 3 mg tablet [generic] 3 mg By Mouth As Needed For DX-INSOMMIA 3 mg 12/12 Inactiv e 2023 53374 62705 8 By Mouth False Hydrocortis one 1 % topical cream [generic] 1 % Topical As Needed For DX- PAIN 1 % 12/12 Inactiv e 2023 07525 10365 1 Topica l False HYDROCORTIS ONE/PARMOXI NE [...] 5-10 50 mg 12/20 Inactiv e 2023 22352 42897 0 Every 4 hours as needed By Mouth False Tylenol 325 mg tablet 325 mg By Mouth Every 4 hours as needed For DX- PAIN PRN FOR MILD PAIN, DO NOT EXCEED 3000MG APAP/24 HOURS 325 mg 12/20 Inactiv e 2023 77886 06533 0 Every 4 hours as needed By Mouth False Baclofen 20 mg tablet [generic] 20 mg By Mouth 4 times a day For MUSCLE SPASMS 20 mg 12/20 Inactiv e 2023 59142 10022 1 4 times a day By Mouth False Calcium citrate 250 mg tablet [generic] Once daily TAKE 4 TABLETS (1000MG) BY MOUTH For SUPPLEMENT 1000 MG 06/26 Inactiv e 2023 03266 18389 6 Once daily By Mouth False Dulcolax (bisacodyl) 10 mg rectal suppository 10 mg Rectal Once daily For CONSTIPATION *MAY HOLD FOR LOOSE STOOLS* 10 mg 2023 Active 2023 60385 99139 1 Once daily Rectal False Gabapentin 300 mg capsule [generic] 300 mg By Mouth 3 times a day For NEUROPATHY 300 mg 2023 Active 2023 63967 66577 4 3 times a day By Mouth False Potassium citrate ER 15 mEq (1,620 mg) tablet,exte nded release [generic] 15 mEq By Mouth 3 times a day For SUPPLEMENT/DI URETIC USE/HYPOCITRA URIA 15 mEq 06/11 Inactiv e 2023 74950 91883 1 3 times a day By Mouth False Potassium chloride ER 20 mEq tablet,exte nded release [generic] 20 mEq By Mouth 3 times a day *DO NOT CRUSH, CHEW OR BREAK* For SUPPLEMENT 20 mEq 12/18 Inactiv e 2023 02494 41917 1 3 times a day By Mouth False Tizanidine 4 mg tablet [generic] 4 mg By Mouth Once daily For MUSCLE SPASMS 4 mg 2023 Active 2023 77969 51677 0 Once daily By Mouth False Tylenol 325 mg tablet 2 tabs By Mouth Every 4 hours as needed For Fever >100 DO NOT EXCEED 3000 MG APAP/24 Hours 2 tabs 12/20 Inactiv e 2023 02936 54005 0 Every 4 hours as needed By Mouth False Dulcolax (bisacodyl) 10 mg rectal suppository Daily as needed For Constipation 1 sup 12/20 Inactiv e 2023 74782 46268 1 Daily as needed Rectal False Fleet Enema 19 gram-7 gram/118 mL 1 Rectal Daily as neededFor Constipation 1 12/20 Inactiv e 2023 91929 74292 6 Daily as needed Rectal False Milk of Magnesia 400 mg/5 mL oral suspension [Magnesium hydroxide] PRN 30ml By Mouth Daily as needed for constipation one time daily if no BM, on day 4 of no BM (PRN refer to instructions) For Constipation For Constipatioin 30ml 12/20 Inactiv e 2023 31383 51772 6 1 time By Mouth False Melatonin 3 mg tablet [generic] 3 mg By Mouth Once daily As Needed For INSOMNIA 3 mg 12/20 Inactiv e 2023 54602 20356 8 Once daily By Mouth False Hydrocortis one 1 % topical cream [generic] 1 % Rectal Four times daily as needed For hemorroid pain 1 % 12/20 Inactiv e 2023 53705 82103 1 Four times daily as needed Rectal False X-STGH ANTACID 750MG CHEW TAKE (1) TABLET BY MOUTH THREE TIMES DAILY NEEDED FOR INDIGESTION 12/20 Inactiv e 2023 40972 08668 4 Three times daily as needed Saline Mist 0.65 % nasal spray aerosol 0.65 % Nares Four times daily as needed For DRYNESS 0.65 % 12/20 Inactiv e 2023 99329 61743 8 Four times daily as needed Nares False Vicks Vaporub 4.7 %-1.2 %-2.6 % topical ointment Apply topically to chest Three times daily as needed For CONGESTION 4.7-1.2 -2.6 12/20 Inactiv e 2023 21192 10166 1 Three times daily as needed Topica l False VITAMIN D3 2000U CAP TAKE ONE (1) CAPSULE BY MOUTH DAILY* DO NOT CRUSH, CHEW OR BREAK* For Supplement 1 capsule 12/19 Inactiv e 2023 24488 94827 0 Once daily By Mouth False Potassium chloride ER 20 mEq tablet,exte nded release(par t/cryst) [generic] TAKE (1) TABLET BY MOUTH THREE TIMES DAILY (MORNING, AFTERNOON, EVENING)*DO NOT CRUSH, CHEW, OR BREAK* For SUPPLEMENT 20 MEQ 06/11 Inactiv e 2023 83379 62923 5 3 times a day By Mouth False Aspirin 81 mg tablet,camron yed release [generic] TAKE ONE (1) TABLET BY MOUTH ONCE DAILY*DO NOT CRUSH, CHEW OR BREAK* For CAD 81 MG 12/22 Inactiv e 2023 52551 85928 0 Once daily By Mouth False Furosemide 20 mg tablet [generic] TAKE 1 AND 1/2 TABLETS (30MG) BY MOUTH ONCE DAILY For CHF 30mg 2023 Active 2023 98157 61749 1 Once daily By Mouth False Polyethylen e glycol 3350 17 gram/dose oral powder [generic] MIX 17 GRAMS (1 CAPFUL) IN 60Z OF LIQUID AND DRINK BY MOUTH ONCE DAILY *HOLD FOR LOOSE STOOLS* For constipation 17 g 2023 Active 2023 21601 23825 3 Once daily By Mouth False Vitamin D3 50 mcg (2,000 unit) capsule Once daily TAKE ONE (1) CAPSULE BY MOUTH DAILY* DO NOT CRUSH, CHEW OR BREAK* For Supplement 1 capsule 02/07 Inactiv e 2023 92746 69155 2 Once daily By Mouth False Fleet Enema 19 gram-7 gram/118 mL 1 Rectal Daily as neededFor Constipation 1 2023 0000 Active 2023 56203 91105 6 Daily as needed Rectal False Tums E-X 300 mg (as calcium carbonate 750 mg) chewable tablet 1 tab By Mouth TAKE (1) TABLET BY MOUTH THREE TIMES DAILY NEEDED FOR INDIGESTION 1 tab 202300 /0000 Active 2023 48676 94254 1 Three times daily as needed By Mouth False Tylenol 325 mg tablet 2 tabs By Mouth Every 4 hours as needed For Fever >100 DO NOT EXCEED 3000 MG APAP/24 Hours 2 tabs 202300 /0000 Active 2023 52779 78199 0 Every 4 hours as needed By Mouth False Vicks Vaporub 4.7 %-1.2 %-2.6 % topical ointment Apply topically to chest Three times daily as needed For CONGESTION topical 202300 Active 2023 25119 99714 1 Three times daily as needed Topica l False Tylenol 325 mg tablet 2 tabs By Mouth Every 4 hours as needed For DX- PAIN PRN FOR MILD PAIN, DO NOT EXCEED 3000MG APAP/24 HOURS 2 tabs 202300 Active 2023 03123 28262 0 Every 4 hours as needed By Mouth False Tramadol 50 mg tablet [generic] 1 tab By Mouth Every 4 hours as needed For DX- PAIN 5-10 1 tab 03/10 Inactiv e 2023 25225 03425 0 Every 4 hours as needed By Mouth False Saline Mist 0.65 % nasal spray aerosol 2 sprays Nares Four times daily as needed For DRYNESS 2 sprays 202300 / Active 2023 81080 37205 8 Four times daily as needed Nares False Dulcolax (bisacodyl) 10 mg rectal suppository Daily as needed For Constipation 1 sup 202300 / Active 2023 70221 43319 1 Daily as needed Rectal False Hydrocortis one-pramoxi ne 1 %-1 % rectal cream [generic] 1 mague Rectal Four times daily as needed For hemorroid pain 1 mague 202300 /0000 Active 2023 88619 24018 4 Four times daily as needed Rectal False Melatonin 3 mg tablet [generic] 1 tab By Mouth At bedtime as needed For INSOMNIA 1 tab 12/24 Inactiv e 2023 25352 04372 8 At bedtime as needed By Mouth False Milk of Magnesia 400 mg/5 mL oral suspension 30ml By Mouth Daily as needed Daily as needed for constipation one time daily if no BM, on day 4 of no BM (PRN refer to instructions) For Constipation For Constipatioin 30ml 2023 Active 2023 25020 33462 2 Daily as needed By Mouth False Baclofen 20 mg tablet [generic] 20 mg By Mouth 4 times a day For MUSCLE SPASMS 20 mg 2023 Active 2023 44874 20865 1 4 times a day By Mouth False Melatonin 3 mg tablet [generic] 1 tab By Mouth At bedtime as needed For INSOMNIA 1 tab 2023 Active 2023 18117 20880 8 At bedtime as needed By Mouth False Bactrim DS 800 mg-160 mg tablet 1 tab By Mouth Twice daily For URINARY TRACT INFECTION, SITE NOT SPECIFIED 1 tab 01/06 Inactiv e 2023 79444 90758 1 Twice daily By Mouth N39.0 False Cefdinir 300 mg capsule [generic] 300 mg By Mouth Twice daily For UTI 300 mg 01/07 Inactiv e 2023 26805 00152 0 Twice daily By Mouth False Cefdinir 300 mg capsule [generic] 300 mg By Mouth Twice daily For UTI 300 mg 01/17 Inactiv e 2023 71637 10416 0 Twice daily By Mouth False Zyrtec 10 mg tablet 10 mg By Mouth Once daily For sinus congestion 10 mg 01/22 Inactiv e 2023 72055 77567 0 Once daily By Mouth False Tobramycin 0.3 %-dexametha sone 0.1 % eye drops,suspe nsion [generic] 0.3-0.1 % Left Eye 4 times a day For eye infection 0.3-0.1 % 02/05 Inactiv e 2023 33955 76176 5 4 times a day Left Eye False Fluconazole 150 mg tablet [generic] 150 mg By Mouth 1 time For yeast infection 150 mg 02/15 Inactiv e 2023 55931 34876 2 1 time By Mouth False Tramadol 50 mg tablet [generic] 1 tab By Mouth Every 4 hours as needed For DX- PAIN 5-10 1 tab 2023 00/00 /0000 Active 2023 96919 50061 0 Every 4 hours as needed By Mouth False Tobramycin 0.3 %-dexametha sone 0.1 % eye drops,suspe nsion [generic] 1 drop Left Eye 4 times a day For Inflammation of left eye 1 drop 05/08 Inactiv e 2023 98095 33341 5 4 times a day Left Eye False Voltaren Arthritis Pain 1 % topical gel 2 gm Topical Twice daily to rigth shoulder for 2 weeks For pain 2 gm 05/08 Inactiv e 2023 14506 74816 1 Twice daily Topica l False Chlorthalid one 25 mg tablet [generic] 12.5mg By Mouth Once daily For HTN 12.5mg 05/06 Inactiv e 2023 54618 23481 0 Once daily By Mouth False Chlorthalid one 25 mg tablet [generic] 12.5mg By Mouth Once daily For HTN 12.5mg 05/07 Inactiv e 2023 43527 25774 0 Once daily By Mouth False Chlorthalid one 25 mg tablet [generic] 05/07 Inactiv e 2023 87337 75955 0 Chlorthalid one 25 mg tablet [generic] 12.5mg By Mouth Once daily For HTN 12.5mg 06/26 Inactiv e 2023 00226 84044 0 Once daily By Mouth False Norvasc 5 mg tablet 5mg By Mouth Once daily, hold medication if systolic is less than 90 For HYPERTENSIVE HEART DISEASE WITHOUT HEART FAILURE 5mg 06/03 Inactiv e 2023 04138 54055 1 Once daily By Mouth I11.9 False Norvasc 5 mg tablet 5mg By Mouth Once daily, hold medication if systolic is less than 90 For HYPERTENSIVE HEART DISEASE WITHOUT HEART FAILURE 5mg 06/03 Inactiv e 2023 56240 73916 1 Once daily By Mouth I11.9 False Norvasc 5 mg tablet 5mg By Mouth Once daily, hold medication if systolic is less than 90 For HYPERTENSIVE HEART DISEASE WITHOUT HEART FAILURE 5mg 06/26 Inactiv e 2023 65822 15410 1 Once daily By Mouth I11.9 False [...] 10 mg 2023 00/00 /0000 Active 2023 58341 64895 1 Once daily By Mouth False DISCONTINUE [...] CAD 81 mg 06/14 Inactiv e 2023 27487 00178 9 Once daily By Mouth False Aspirin 81 mg tablet,camron yed release [generic] 06/14 Inactiv e 2023 82809 70008 9 Aspirin 81 mg tablet,camron yed release [generic] 81 mg By Mouth Once daily Do not crush, chew, or break For CAD 81 mg 06/154 Inactiv e 2023 61068 60041 9 Once daily By Mouth False Cefpodoxime 200 mg tablet [generic] 200mg By Mouth Twice daily For UTI 200mg 07/04 Inactiv e 2023 86367 03366 0 Twice daily By Mouth False Calcium citrate 250 mg tablet [generic] 06/26 Inactiv e 2023 94615 09928 6 Calcium citrate 250 mg tablet [generic] Once daily TAKE 4 TABLETS (1000MG) BY MOUTH For SUPPLEMENT 500 MG 2023 Active 2023 27330 64985 6 Once daily By Mouth False Norvasc 5 mg tablet 7.5 mg By Mouth Once daily Hold medication if SBP <90 For HYPERTENSIVE HEART DISEASE WITHOUT HEART FAILURE 7.5 mg 06/30 Inactiv e 2023 90317 81835 1 Once daily By Mouth I11.9 False Norvasc 5 mg tablet 7.5 mg By Mouth Once daily Hold medication if SBP <90 For HYPERTENSIVE HEART DISEASE WITHOUT HEART FAILURE 7.5 mg 07/06 Inactiv e 2023 10638 74213 1 Once daily By Mouth I11.9 False Simethicone 125 mg capsule [generic] 2 capule By Mouth Twice daily as needed For bloating/gas pain 2 capule 2023 Active 2023 35308 10377 0 Twice daily as needed By Mouth False Cepacol Sore Throat (benzocaine -menthol) 15 mg-2.6 mg lozenges 2 lozenges By Mouth Every 6 hours as needed For sore throat 2 lozenge s 2023 Active 2023 58666 21355 6 Every 6 hours as needed By Mouth False Cefepime 1 gram solution for injection [generic] 1g Intramuscular Every 12 hours 1g intramuscular ly ever 12 hours For UTI 1g 07/06 Inactiv e 2023 33651 02890 4 Every 12 hours Intram uscula r False Cefepime 1 gram solution for injection [generic] 07/06 Inactiv e 2023 36683 95187 4 Cefepime 1 gram solution for injection [generic] 1g Intramuscular Every 12 hours 1g intramuscular ly ever 12 hours For UTI Reconstitute with 2.4 ML of NSS. 1g 2023 Active 2023 65253 01203 4 Every 12 hours Intram uscula r False Norvasc 5 mg tablet 07/06 Inactiv e 2023 63733 27721 1 I11.9 Norvasc 5 mg tablet 7.5 mg By Mouth Once daily Hold medication if SBP <90 For HYPERTENSIVE HEART DISEASE WITHOUT HEART FAILURE 7.5 mg 2023 Active 2023 57546 17096 1 Once daily By Mouth I11.9 False Nystatin 100,000 unit/gram topical cream [generic] 100,000 unit Topical As Needed For DX- EXCORIATION 100,000 unit 12/12 Inactiv e 2023 13030 76903 5 Topica l False Vicks Vaporub 4.7 %-1.2 %-2.6 % topical ointment 4.7-1.2-2.6 Topical 3 times a day As Needed For DX- CONGESTION 4.7-1.2 -2.6 12/12 Inactiv e 2023 77407 62142 1 3 times a day Topica l False Ketoconazol e 2 % shampoo [generic] APPLY SHAMPOO TOPICALLY TO SCALP DURING HAIR WASHINGDX: ELVIA DERM OF SCALP For DX- ELVIA DERM OF SCALP 12/12 Inactiv e 2023 42234 54055 4 Topica l False THERA SILICONE SKIN GUARD Topical Twice daily 1 APPLICATION TOPICALLY IN THE MORNING AND AT BEDTIME TO SCROTUM For DX- PREVENTION 2023 Active 2023 Twice daily Topica l False Selenium sulfide 2.5 % lotion [generic] 2.5 % Topical EVERY MONDAY, MONDAY AND MONDAY AFTER SHOWER For DANDRUFF 2.5 % 2023 Active 2023 96576 20654 4 3 times a week Topica l False Nystatin (bulk) 100 million unit powder [generic] 100 million Topical Twice daily as needed For EXOCORATION 100 million 12/20 Inactiv e 2023 80320 87162 1 Twice daily as needed Topica l False Ketoconazol e 2 % shampoo [generic] Once daily APPLY SHAMPOO TOPICALLY TO SCALP DURING HAIR WASHING ON SHOWER DAYS- LITTLE SAHA, SAT For ELVIA DERM OF SCAP 2 % 2023 Active 2023 21806 99299 4 Once daily Topica l False Nystatin 100,000 unit/gram topical cream [generic] 1 mague Topical Twice daily as needed For EXOCORATION 1 mague 06/05 Inactiv e 2023 31333 81551 5 Twice daily as needed Topica l False Nystatin 100,000 unit/gram topical powder [generic] 100,000 unit Topical Twice daily to scrotum with AM and PM care For Scrotal excoriation 100,000 unit 06/05 Inactiv e 2023 43851 31400 5 Twice daily Topica l False Problems [...] Temperature SpO2 Blood Sugar Pulse Respirations 128 22227 0 80.00 mm[Hg] - Sitting 154.00 mm[Hg] - Sitting 129 43507 3 83.00 mm[Hg] - Sitting 174.00 mm[Hg] - Sitting 130 97309 5 78.00 mm[Hg] - Sitting 152.00 mm[Hg] - Sitting 201 56384 1 87.00 mm[Hg] - Sitting 189.00 mm[Hg] - Sitting 202 53282 2 76.00 mm[Hg] - Sitting 136.00 mm[Hg] - Sitting 203 53043 2 259.80 NI 203 44086 5 93.00 mm[Hg] - Sitting 137.00 mm[Hg] - Sitting 204 39146 2 259.40 NI 204 26933 1 78.00 mm[Hg] - Sitting 144.00 mm[Hg] - Sitting 205 65516 4 85.00 mm[Hg] - Sitting 142.00 mm[Hg] - Sitting 206 39544 9 76.00 mm[Hg] - Sitting 132.00 mm[Hg] - Sitting 208 01574 9 82.00 mm[Hg] - Sitting 128.00 mm[Hg] - Sitting 209 03720 2 78.00 mm[Hg] - Sitting 130.00 mm[Hg] - Sitting 210 35452 6 80.00 mm[Hg] - Sitting 132.00 mm[Hg] - Sitting 211 86870 5 78.00 mm[Hg] - Sitting 125.00 mm[Hg] - Sitting 216 58159 1 254.10 NI 86787 216 33436 2 79.00 mm[Hg] - Sitting 157.00 mm[Hg] - Sitting 73 NI 254.10 NI 36.30 Tympanic 95.00 % 72.00/ min 16.00/min 59605 216 64024 4 98.80 Tympanic 23301 216 39424 2 78.00 mm[Hg] - Sitting 164.00 mm[Hg] - Sitting 89525 217 65787 3 98.20 Tympanic 30749 217 43996 5 73.00 mm[Hg] - Sitting 159.00 mm[Hg] - Sitting 73530 217 11204 9 98.40 Forehead Scan 68409 218 05685 3 97.90 Tympanic 59309 218 46834 5 77.00 mm[Hg] - Sitting 137.00 mm[Hg] - Sitting 29004 219 77976 0 97.70 Tympanic 00408 219 09256 6 97.60 Tympanic 27313 219 87831 4 76.00 mm[Hg] - Sitting 139.00 mm[Hg] - Sitting 32389 219 07730 4 97.80 Forehead Scan 75697 220 14142 9 97.90 Tympanic 46992 220 27082 9 76.00 mm[Hg] - Sitting 138.00 mm[Hg] - Sitting 40686 220 54357 6 98.10 Tympanic 24092 221 61250 5 67.00 mm[Hg] - Sitting 142.00 mm[Hg] - Sitting 30303 221 05066 8 98.20 Tympanic 88861 221 45493 0 98.30 Tympanic 83048 222 75622 7 98.20 Tympanic 64585 222 64076 8 97.90 Tympanic 62820 223 64036 3 98.20 Tympanic 16743 223 93623 3 98.00 Tympanic 27070 224 28061 0 59.00 mm[Hg] - Sitting 111.00 mm[Hg] - Sitting 98.40 Forehead Scan 95.00 % 56.00/ min 18.00/min 87644 224 64766 9 98.20 Forehead Scan 50495 224 85570 3 97.90 Tympanic 59628 225 69515 4 98.20 Tympanic 22035 225 58577 8 97.50 Forehead Scan 42675 228 58600 0 55.00 mm[Hg] - Sitting 118.00 mm[Hg] [...]
--- OUTSIDE RECORDS SUMMARY | 2024-07-26 11:26 | External Medical Summary | Continuity Of Care Document ---
Author Name Unknown Address [address] [place] [address] Organization [facility] () Care Team Providers Care Manager Supply Name Role Phone DO Pritchett Amy Primary Care Provider [phone] Allergies Allergy Reaction Start Date End Date Status AMINOGLYCOSIDES Active CIPRO Active GENTAMICIN Active NSAIDS (NON-STEROIDAL ANTI-INFLAMMATORY DRUG) 0 Active IBUPROFEN Active QUINOLONES Active VALIUM Active Medications Medication Instructions Dosage Start Date End Date Status Order Date Drug Code Frequency Route of Admin Diagnosis Code Substitutions Allowed Spikevax [id number](1 2y up)(PF) 50 mcg/0.5 mL intramuscul ar suspension [COVID [id number](12 up)(andu)(P F)] 0.5mL Intramuscular 1 time Monitory 15 Minutes post injection for adverse effects; record site/temp For COVID 19 PREVENTION 0.5mL 01/02 Inactiv e 2023 51040 30377 4 1 time Intram uscula r False [facility] - Nurse initials indicate verificatio n that [id number] vaccine was administere d by [facility] Representat jon 1 Intramuscular 1 time ( Indicate vaccine type) For vaccine 1 05/03 Inactiv e 2023 1 time Intram uscula r False Lisinopril 40 mg tablet [generic] TAKE ONE (1) TABLET BY MOUTH IN THE MORNING. For DX- HTN 1 2023 Active 2023 17422 98513 1 Once daily By Mouth False Tizanidine 2 mg tablet [generic] TAKE ONE (1) TABLET BY MOUTH ONCE DAILY For MUSCLE SPASM 1 2023 Active 2023 66358 07659 0 Once daily By Mouth M62.838 False Tamsulosin 0.4 mg capsule [generic] TAKE (1) CAPSULE BY MOUTH AT BEDTIME For SPASMS 1 2023 Active 2023 18805 09624 0 Once daily By Mouth False Aspirin 81 mg tablet Once daily 1 TABLET BY MOUTH IN THE MORNING For DX- CAD DO NOT CRUSH, CHEW OR BREAK 81 mg 06/12 Inactiv e 2023 Once daily By Mouth False Baclofen 20 mg tablet [generic] 20 mg By Mouth 4 times a day For DX- MUSCLE SPASMS 20 mg 12/12 Inactiv e 2023 62434 01288 1 4 times a day By Mouth False Calcium citrate 250 mg tablet Once daily 4 TABLET BY MOUTH For DX- SUPPLEMENT 250 mg calci 12/12 Inactiv e 2023 Once daily By Mouth False Co Q-10 100 mg capsule 100 mg By Mouth Once daily For DX- SUPPLEMENT 100 mg 06/20 Inactiv e 2023 81449 09991 5 Once daily By Mouth False Furosemide 20 mg tablet [generic] 20 mg By Mouth Once daily For DX-CHF 20 mg 12/12 Inactiv e 2023 04912 74626 0 Once daily By Mouth False Gabapentin 300 mg capsule [generic] 300 mg By Mouth 3 times a day For DX- NEUROPATHY 300 mg 12/12 Inactiv e 2023 14324 09840 4 3 times a day By Mouth False Loratadine 10 mg tablet [generic] 10 mg By Mouth Once daily For DX- ALLERGIES 10 mg 2023 Active 2023 48380 71080 1 Once daily By Mouth False Miralax 17 gram/dose oral powder 17 gram/dose By Mouth IN THE MORNING Mix 1 TABLESPOON IN 8 OZ OF FLUID HOLD FOR LOOSE STOOLS For DX- CONSTIPATION 17 gram/do se 12/12 Inactiv e 2023 23421 08444 0 Once daily By Mouth False Paroxetine 30 mg tablet [generic] 30 mg By Mouth Once daily For DX- DEPRESSION 30 mg 2023 00/00 /0000 Active 2023 56361 19508 3 Once daily By Mouth False Potassium citrate ER 15 mEq (1,620 mg) tablet,exte nded release [generic] 15 mEq By Mouth 3 times a day For DX- SUPPLEMENT/DI URETIC USE/ HYPOCITRAUIRA DO NOT CRUSH 15 mEq 12/12 Inactiv e 2023 10477 92557 1 3 times a day By Mouth [...] For DX- DANDRUFF 12/12 Inactiv e 2023 92719 33832 4 3 times a week Topica l False Acetaminoph en 325 mg tablet [generic] TAKE 2 TABS (650MG) BY MOUTH EVERY 4 HOURS NEEDED FOR TEMP >100 NOT TO EXCEED 3GM/24HRS TAKE 2 TABS (650MG) BY MOUTH EVERY 4 HOURS NEEDED FOR TEMP >100 NOT TO EXCEED 3GM/24HRS For DX-FEVER 2 12/12 Inactiv e 2023 10356 09461 0 By Mouth False MILK OF MAGNESIA ADMINISTER 30 ML BY MOUTH ONCE DAILY NEEDED FOR CONSTIPATION X3 DAYS WITH NO BM. For DX- CONSTIPATION 30ML 12/12 Inactiv e 2023 74158 97101 9 By Mouth False Enema Disposable 19 gram-7 gram/118 mL ADMINISTER ONE ENEMA RECTALLY ONCE DAILY NEEDED FOR CONSTIPATION ON DAY 6 OF NO BM For DX- CONSTIPATION 12/12 Inactiv e 2023 80663 50376 1 Rectal False TUMS EXTRA STR 750MG TAKE (1) TABLET BY MOUTH THREE TIMES DAILY NEEDED FOR INDIGESTION For DX- INDIGESTION 1 12/12 Inactiv e 2023 22304 30138 8 By Mouth False Vitamin D3 25 [...] CONSTIPATION 10 mg 12/12 Inactiv e 2023 60615 58077 1 Rectal False Melatonin 3 mg tablet [generic] 3 mg By Mouth As Needed For DX-INSOMMIA 3 mg 12/12 Inactiv e 2023 34185 07296 8 By Mouth False Hydrocortis one 1 % topical cream [generic] 1 % Topical As Needed For DX- PAIN 1 % 12/12 Inactiv e 2023 96500 66362 1 Topica l False HYDROCORTIS ONE/PARMOXI NE [...] 5-10 50 mg 12/20 Inactiv e 2023 49848 96256 0 Every 4 hours as needed By Mouth False Tylenol 325 mg tablet 325 mg By Mouth Every 4 hours as needed For DX- PAIN PRN FOR MILD PAIN, DO NOT EXCEED 3000MG APAP/24 HOURS 325 mg 12/20 Inactiv e 2023 91901 58375 0 Every 4 hours as needed By Mouth False Baclofen 20 mg tablet [generic] 20 mg By Mouth 4 times a day For MUSCLE SPASMS 20 mg 12/20 Inactiv e 2023 61004 36154 1 4 times a day By Mouth False Calcium citrate 250 mg tablet [generic] Once daily TAKE 4 TABLETS (1000MG) BY MOUTH For SUPPLEMENT 1000 MG 06/26 Inactiv e 2023 59846 41532 6 Once daily By Mouth False Dulcolax (bisacodyl) 10 mg rectal suppository 10 mg Rectal Once daily For CONSTIPATION *MAY HOLD FOR LOOSE STOOLS* 10 mg 2023 Active 2023 74594 75182 1 Once daily Rectal False Gabapentin 300 mg capsule [generic] 300 mg By Mouth 3 times a day For NEUROPATHY 300 mg 2023 Active 2023 83944 16839 4 3 times a day By Mouth False Potassium citrate ER 15 mEq (1,620 mg) tablet,exte nded release [generic] 15 mEq By Mouth 3 times a day For SUPPLEMENT/DI URETIC USE/HYPOCITRA URIA 15 mEq 06/11 Inactiv e 2023 21020 14333 1 3 times a day By Mouth False Potassium chloride ER 20 mEq tablet,exte nded release [generic] 20 mEq By Mouth 3 times a day *DO NOT CRUSH, CHEW OR BREAK* For SUPPLEMENT 20 mEq 12/18 Inactiv e 2023 17391 63118 1 3 times a day By Mouth False Tizanidine 4 mg tablet [generic] 4 mg By Mouth Once daily For MUSCLE SPASMS 4 mg 2023 Active 2023 48393 37754 0 Once daily By Mouth False Tylenol 325 mg tablet 2 tabs By Mouth Every 4 hours as needed For Fever >100 DO NOT EXCEED 3000 MG APAP/24 Hours 2 tabs 12/20 Inactiv e 2023 95458 23743 0 Every 4 hours as needed By Mouth False Dulcolax (bisacodyl) 10 mg rectal suppository Daily as needed For Constipation 1 sup 12/20 Inactiv e 2023 16829 32745 1 Daily as needed Rectal False Fleet Enema 19 gram-7 gram/118 mL 1 Rectal Daily as neededFor Constipation 1 12/20 Inactiv e 2023 18015 86002 6 Daily as needed Rectal False Milk of Magnesia 400 mg/5 mL oral suspension [Magnesium hydroxide] PRN 30ml By Mouth Daily as needed for constipation one time daily if no BM, on day 4 of no BM (PRN refer to instructions) For Constipation For Constipatioin 30ml 12/20 Inactiv e 2023 06762 19353 6 1 time By Mouth False Melatonin 3 mg tablet [generic] 3 mg By Mouth Once daily As Needed For INSOMNIA 3 mg 12/20 Inactiv e 2023 44180 12679 8 Once daily By Mouth False Hydrocortis one 1 % topical cream [generic] 1 % Rectal Four times daily as needed For hemorroid pain 1 % 12/20 Inactiv e 2023 05415 11658 1 Four times daily as needed Rectal False X-STGH ANTACID 750MG CHEW TAKE (1) TABLET BY MOUTH THREE TIMES DAILY NEEDED FOR INDIGESTION 12/20 Inactiv e 2023 64329 77687 4 Three times daily as needed Saline Mist 0.65 % nasal spray aerosol 0.65 % Nares Four times daily as needed For DRYNESS 0.65 % 12/20 Inactiv e 2023 16819 32229 8 Four times daily as needed Nares False Vicks Vaporub 4.7 %-1.2 %-2.6 % topical ointment Apply topically to chest Three times daily as needed For CONGESTION 4.7-1.2 -2.6 12/20 Inactiv e 2023 71633 90438 1 Three times daily as needed Topica l False VITAMIN D3 2000U CAP TAKE ONE (1) CAPSULE BY MOUTH DAILY* DO NOT CRUSH, CHEW OR BREAK* For Supplement 1 capsule 12/19 Inactiv e 2023 97823 23713 0 Once daily By Mouth False Potassium chloride ER 20 mEq tablet,exte nded release(par t/cryst) [generic] TAKE (1) TABLET BY MOUTH THREE TIMES DAILY (MORNING, AFTERNOON, EVENING)*DO NOT CRUSH, CHEW, OR BREAK* For SUPPLEMENT 20 MEQ 06/11 Inactiv e 2023 46510 31785 5 3 times a day By Mouth False Aspirin 81 mg tablet,camron yed release [generic] TAKE ONE (1) TABLET BY MOUTH ONCE DAILY*DO NOT CRUSH, CHEW OR BREAK* For CAD 81 MG 12/22 Inactiv e 2023 46537 88841 0 Once daily By Mouth False Furosemide 20 mg tablet [generic] TAKE 1 AND 1/2 TABLETS (30MG) BY MOUTH ONCE DAILY For CHF 30mg 2023 Active 2023 00002 18079 1 Once daily By Mouth False Polyethylen e glycol 3350 17 gram/dose oral powder [generic] MIX 17 GRAMS (1 CAPFUL) IN 60Z OF LIQUID AND DRINK BY MOUTH ONCE DAILY *HOLD FOR LOOSE STOOLS* For constipation 17 g 2023 Active 2023 07170 02860 3 Once daily By Mouth False Vitamin D3 50 mcg (2,000 unit) capsule Once daily TAKE ONE (1) CAPSULE BY MOUTH DAILY* DO NOT CRUSH, CHEW OR BREAK* For Supplement 1 capsule 02/07 Inactiv e 2023 29827 30646 2 Once daily By Mouth False Fleet Enema 19 gram-7 gram/118 mL 1 Rectal Daily as neededFor Constipation 1 2023 0000 Active 2023 84249 29348 6 Daily as needed Rectal False Tums E-X 300 mg (as calcium carbonate 750 mg) chewable tablet 1 tab By Mouth TAKE (1) TABLET BY MOUTH THREE TIMES DAILY NEEDED FOR INDIGESTION 1 tab 202300 /0000 Active 2023 69915 49134 1 Three times daily as needed By Mouth False Tylenol 325 mg tablet 2 tabs By Mouth Every 4 hours as needed For Fever >100 DO NOT EXCEED 3000 MG APAP/24 Hours 2 tabs 202300 /0000 Active 2023 61677 01203 0 Every 4 hours as needed By Mouth False Vicks Vaporub 4.7 %-1.2 %-2.6 % topical ointment Apply topically to chest Three times daily as needed For CONGESTION topical 202300 Active 2023 44317 88440 1 Three times daily as needed Topica l False Tylenol 325 mg tablet 2 tabs By Mouth Every 4 hours as needed For DX- PAIN PRN FOR MILD PAIN, DO NOT EXCEED 3000MG APAP/24 HOURS 2 tabs 202300 Active 2023 17785 66878 0 Every 4 hours as needed By Mouth False Tramadol 50 mg tablet [generic] 1 tab By Mouth Every 4 hours as needed For DX- PAIN 5-10 1 tab 03/10 Inactiv e 2023 36519 64955 0 Every 4 hours as needed By Mouth False Saline Mist 0.65 % nasal spray aerosol 2 sprays Nares Four times daily as needed For DRYNESS 2 sprays 202300 / Active 2023 02113 40019 8 Four times daily as needed Nares False Dulcolax (bisacodyl) 10 mg rectal suppository Daily as needed For Constipation 1 sup 202300 / Active 2023 64296 23664 1 Daily as needed Rectal False Hydrocortis one-pramoxi ne 1 %-1 % rectal cream [generic] 1 mague Rectal Four times daily as needed For hemorroid pain 1 mague 202300 /0000 Active 2023 62092 62556 4 Four times daily as needed Rectal False Melatonin 3 mg tablet [generic] 1 tab By Mouth At bedtime as needed For INSOMNIA 1 tab 12/24 Inactiv e 2023 64097 36613 8 At bedtime as needed By Mouth False Milk of Magnesia 400 mg/5 mL oral suspension 30ml By Mouth Daily as needed Daily as needed for constipation one time daily if no BM, on day 4 of no BM (PRN refer to instructions) For Constipation For Constipatioin 30ml 2023 Active 2023 56859 65332 2 Daily as needed By Mouth False Baclofen 20 mg tablet [generic] 20 mg By Mouth 4 times a day For MUSCLE SPASMS 20 mg 2023 Active 2023 88997 34835 1 4 times a day By Mouth False Melatonin 3 mg tablet [generic] 1 tab By Mouth At bedtime as needed For INSOMNIA 1 tab 2023 Active 2023 93524 25369 8 At bedtime as needed By Mouth False Bactrim DS 800 mg-160 mg tablet 1 tab By Mouth Twice daily For URINARY TRACT INFECTION, SITE NOT SPECIFIED 1 tab 01/06 Inactiv e 2023 90597 08575 1 Twice daily By Mouth N39.0 False Cefdinir 300 mg capsule [generic] 300 mg By Mouth Twice daily For UTI 300 mg 01/07 Inactiv e 2023 37419 64000 0 Twice daily By Mouth False Cefdinir 300 mg capsule [generic] 300 mg By Mouth Twice daily For UTI 300 mg 01/17 Inactiv e 2023 60911 36157 0 Twice daily By Mouth False Zyrtec 10 mg tablet 10 mg By Mouth Once daily For sinus congestion 10 mg 01/22 Inactiv e 2023 30996 81431 0 Once daily By Mouth False Tobramycin 0.3 %-dexametha sone 0.1 % eye drops,suspe nsion [generic] 0.3-0.1 % Left Eye 4 times a day For eye infection 0.3-0.1 % 02/05 Inactiv e 2023 90231 38251 5 4 times a day Left Eye False Fluconazole 150 mg tablet [generic] 150 mg By Mouth 1 time For yeast infection 150 mg 02/15 Inactiv e 2023 14771 02593 2 1 time By Mouth False Tramadol 50 mg tablet [generic] 1 tab By Mouth Every 4 hours as needed For DX- PAIN 5-10 1 tab 2023 00/00 /0000 Active 2023 29852 89828 0 Every 4 hours as needed By Mouth False Tobramycin 0.3 %-dexametha sone 0.1 % eye drops,suspe nsion [generic] 1 drop Left Eye 4 times a day For Inflammation of left eye 1 drop 05/08 Inactiv e 2023 07720 64604 5 4 times a day Left Eye False Voltaren Arthritis Pain 1 % topical gel 2 gm Topical Twice daily to rigth shoulder for 2 weeks For pain 2 gm 05/08 Inactiv e 2023 12555 56303 1 Twice daily Topica l False Chlorthalid one 25 mg tablet [generic] 12.5mg By Mouth Once daily For HTN 12.5mg 05/06 Inactiv e 2023 30784 89675 0 Once daily By Mouth False Chlorthalid one 25 mg tablet [generic] 12.5mg By Mouth Once daily For HTN 12.5mg 05/07 Inactiv e 2023 45966 25635 0 Once daily By Mouth False Chlorthalid one 25 mg tablet [generic] 05/07 Inactiv e 2023 49549 56243 0 Chlorthalid one 25 mg tablet [generic] 12.5mg By Mouth Once daily For HTN 12.5mg 06/26 Inactiv e 2023 59198 44726 0 Once daily By Mouth False Norvasc 5 mg tablet 5mg By Mouth Once daily, hold medication if systolic is less than 90 For HYPERTENSIVE HEART DISEASE WITHOUT HEART FAILURE 5mg 06/03 Inactiv e 2023 56036 35577 1 Once daily By Mouth I11.9 False Norvasc 5 mg tablet 5mg By Mouth Once daily, hold medication if systolic is less than 90 For HYPERTENSIVE HEART DISEASE WITHOUT HEART FAILURE 5mg 06/03 Inactiv e 2023 06524 57809 1 Once daily By Mouth I11.9 False Norvasc 5 mg tablet 5mg By Mouth Once daily, hold medication if systolic is less than 90 For HYPERTENSIVE HEART DISEASE WITHOUT HEART FAILURE 5mg 06/26 Inactiv e 2023 89296 97016 1 Once daily By Mouth I11.9 False [...] 10 mg 2023 00/00 /0000 Active 2023 57460 60958 1 Once daily By Mouth False DISCONTINUE [...] CAD 81 mg 06/14 Inactiv e 2023 97911 77022 9 Once daily By Mouth False Aspirin 81 mg tablet,camron yed release [generic] 06/14 Inactiv e 2023 52403 01634 9 Aspirin 81 mg tablet,camron yed release [generic] 81 mg By Mouth Once daily Do not crush, chew, or break For CAD 81 mg 06/154 Inactiv e 2023 46598 14255 9 Once daily By Mouth False Cefpodoxime 200 mg tablet [generic] 200mg By Mouth Twice daily For UTI 200mg 07/04 Inactiv e 2023 28799 97539 0 Twice daily By Mouth False Calcium citrate 250 mg tablet [generic] 06/26 Inactiv e 2023 12740 78286 6 Calcium citrate 250 mg tablet [generic] Once daily TAKE 4 TABLETS (1000MG) BY MOUTH For SUPPLEMENT 500 MG 2023 Active 2023 78328 23831 6 Once daily By Mouth False Norvasc 5 mg tablet 7.5 mg By Mouth Once daily Hold medication if SBP <90 For HYPERTENSIVE HEART DISEASE WITHOUT HEART FAILURE 7.5 mg 06/30 Inactiv e 2023 30565 49819 1 Once daily By Mouth I11.9 False [...] Temperature SpO2 Blood Sugar Pulse Respirations 127 03617 3 93.00 mm[Hg] - Sitting 186.00 mm[Hg] - Sitting 128 73781 0 80.00 mm[Hg] - Sitting 154.00 mm[Hg] - Sitting 129 15407 3 83.00 mm[Hg] - Sitting 174.00 mm[Hg] - Sitting 130 23914 5 78.00 mm[Hg] - Sitting 152.00 mm[Hg] - Sitting 201 37010 1 87.00 mm[Hg] - Sitting 189.00 mm[Hg] - Sitting 202 95891 2 76.00 mm[Hg] - Sitting 136.00 mm[Hg] - Sitting 203 14883 2 259.80 NI 203 22546 5 93.00 mm[Hg] - Sitting 137.00 mm[Hg] - Sitting 204 47418 2 259.40 NI 204 43996 1 78.00 mm[Hg] - Sitting 144.00 mm[Hg] - Sitting 205 40158 4 85.00 mm[Hg] - Sitting 142.00 mm[Hg] - Sitting 206 44310 9 76.00 mm[Hg] - Sitting 132.00 mm[Hg] - Sitting 208 43578 9 82.00 mm[Hg] - Sitting 128.00 mm[Hg] - Sitting 209 53437 2 78.00 mm[Hg] - Sitting 130.00 mm[Hg] - Sitting 210 13994 6 80.00 mm[Hg] - Sitting 132.00 mm[Hg] - Sitting 211 31586 5 78.00 mm[Hg] - Sitting 125.00 mm[Hg] - Sitting 216 37454 1 254.10 NI 59051 216 93538 2 79.00 mm[Hg] - Sitting 157.00 mm[Hg] - Sitting 73 NI 254.10 NI 36.30 Tympanic 95.00 % 72.00/ min 16.00/min 14540 216 37362 4 98.80 Tympanic 54919 216 92907 2 78.00 mm[Hg] - Sitting 164.00 mm[Hg] - Sitting 70467 217 80420 3 98.20 Tympanic 56336 217 35739 5 73.00 mm[Hg] - Sitting 159.00 mm[Hg] - Sitting 16116 217 78767 9 98.40 Forehead Scan 25181 218 67697 3 97.90 Tympanic 95198 218 33266 5 77.00 mm[Hg] - Sitting 137.00 mm[Hg] - Sitting 54985 219 34399 0 97.70 Tympanic 70689 219 03755 6 97.60 Tympanic 78187 219 11796 4 76.00 mm[Hg] - Sitting 139.00 mm[Hg] - Sitting Immunizations Vaccine Date Status [...]
--- OUTSIDE RECORDS SUMMARY | 2024-07-26 11:26 | External Medical Summary | Continuity Of Care Document ---
Author Name Unknown Address [address] [place] [address] Organization [facility] () Care Team Providers Care Transfer Agent Name Role Phone DO Pritchett Amy Primary Care Provider [phone] Allergies Allergy Reaction Start Date End Date Status AMINOGLYCOSIDES Active CIPRO Active GENTAMICIN Active NSAIDS (NON-STEROIDAL ANTI-INFLAMMATORY DRUG) 0 Active IBUPROFEN Active QUINOLONES Active VALIUM Active Medications Medication Instructions Dosage Start Date End Date Status Order Date Drug Code Frequency Route of Admin Diagnosis Code Substitutions Allowed Spikevax [id number](1 2y up)(PF) 50 mcg/0.5 mL intramuscul ar suspension [COVID fpl79-25(12 up)(andu)(P F)] 0.5mL Intramuscular 1 time Monitory 15 Minutes post injection for adverse effects; record site/temp For COVID 19 PREVENTION 0.5mL 01/02 Inactiv e 2023 70533 35172 4 1 time Intram uscula r False [facility] - Nurse initials indicate verificatio n that [id number] vaccine was administere d by [facility] jno 1 Intramuscular 1 time ( Indicate vaccine type) For vaccine 1 05/03 Inactiv e 2023 1 time Intram uscula r False Lisinopril 40 mg tablet [generic] TAKE ONE (1) TABLET BY MOUTH IN THE MORNING. For DX- HTN 1 2023 Active 2023 39548 56369 1 Once daily By Mouth False Tizanidine 2 mg tablet [generic] TAKE ONE (1) TABLET BY MOUTH ONCE DAILY For MUSCLE SPASM 1 2023 Active 2023 86698 33748 0 Once daily By Mouth M62.838 False Tamsulosin 0.4 mg capsule [generic] TAKE (1) CAPSULE BY MOUTH AT BEDTIME For SPASMS 1 2023 Active 2023 36619 44437 0 Once daily By Mouth False Aspirin 81 mg tablet Once daily 1 TABLET BY MOUTH IN THE MORNING For DX- CAD DO NOT CRUSH, CHEW OR BREAK 81 mg 06/12 Inactiv e 2023 Once daily By Mouth False Baclofen 20 mg tablet [generic] 20 mg By Mouth 4 times a day For DX- MUSCLE SPASMS 20 mg 12/12 Inactiv e 2023 71205 48474 1 4 times a day By Mouth False Calcium citrate 250 mg tablet Once daily 4 TABLET BY MOUTH For DX- SUPPLEMENT 250 mg calci 12/12 Inactiv e 2023 Once daily By Mouth False Co Q-10 100 mg capsule 100 mg By Mouth Once daily For DX- SUPPLEMENT 100 mg 06/20 Inactiv e 2023 37034 49155 5 Once daily By Mouth False Furosemide 20 mg tablet [generic] 20 mg By Mouth Once daily For DX-CHF 20 mg 12/12 Inactiv e 2023 36062 21323 0 Once daily By Mouth False Gabapentin 300 mg capsule [generic] 300 mg By Mouth 3 times a day For DX- NEUROPATHY 300 mg 12/12 Inactiv e 2023 84079 17882 4 3 times a day By Mouth False Loratadine 10 mg tablet [generic] 10 mg By Mouth Once daily For DX- ALLERGIES 10 mg 2023 Active 2023 04732 84992 1 Once daily By Mouth False Miralax 17 gram/dose oral powder 17 gram/dose By Mouth IN THE MORNING Mix 1 TABLESPOON IN 8 OZ OF FLUID HOLD FOR LOOSE STOOLS For DX- CONSTIPATION 17 gram/do se 12/12 Inactiv e 2023 50688 29441 0 Once daily By Mouth False Paroxetine 30 mg tablet [generic] 30 mg By Mouth Once daily For DX- DEPRESSION 30 mg 2023 00/00 /0000 Active 2023 60017 50277 3 Once daily By Mouth False Potassium citrate ER 15 mEq (1,620 mg) tablet,exte nded release [generic] 15 mEq By Mouth 3 times a day For DX- SUPPLEMENT/DI URETIC USE/ HYPOCITRAUIRA DO NOT CRUSH 15 mEq 12/12 Inactiv e 2023 72036 64455 1 3 times a day By Mouth [...] For DX- DANDRUFF 12/12 Inactiv e 2023 59871 35980 4 3 times a week Topica l False Acetaminoph en 325 mg tablet [generic] TAKE 2 TABS (650MG) BY MOUTH EVERY 4 HOURS NEEDED FOR TEMP >100 NOT TO EXCEED 3GM/24HRS TAKE 2 TABS (650MG) BY MOUTH EVERY 4 HOURS NEEDED FOR TEMP >100 NOT TO EXCEED 3GM/24HRS For DX-FEVER 2 12/12 Inactiv e 2023 42736 46008 0 By Mouth False MILK OF MAGNESIA ADMINISTER 30 ML BY MOUTH ONCE DAILY NEEDED FOR CONSTIPATION X3 DAYS WITH NO BM. For DX- CONSTIPATION 30ML 12/12 Inactiv e 2023 69876 18601 9 By Mouth False Enema Disposable 19 gram-7 gram/118 mL ADMINISTER ONE ENEMA RECTALLY ONCE DAILY NEEDED FOR CONSTIPATION ON DAY 6 OF NO BM For DX- CONSTIPATION 12/12 Inactiv e 2023 53257 02927 1 Rectal False TUMS EXTRA STR 750MG TAKE (1) TABLET BY MOUTH THREE TIMES DAILY NEEDED FOR INDIGESTION For DX- INDIGESTION 1 12/12 Inactiv e 2023 34779 86391 8 By Mouth False Vitamin D3 25 [...] CONSTIPATION 10 mg 12/12 Inactiv e 2023 56709 76601 1 Rectal False Melatonin 3 mg tablet [generic] 3 mg By Mouth As Needed For DX-INSOMMIA 3 mg 12/12 Inactiv e 2023 96349 63892 8 By Mouth False Hydrocortis one 1 % topical cream [generic] 1 % Topical As Needed For DX- PAIN 1 % 12/12 Inactiv e 2023 77508 95899 1 Topica l False HYDROCORTIS ONE/PARMOXI NE [...] 5-10 50 mg 12/20 Inactiv e 2023 67760 08331 0 Every 4 hours as needed By Mouth False Tylenol 325 mg tablet 325 mg By Mouth Every 4 hours as needed For DX- PAIN PRN FOR MILD PAIN, DO NOT EXCEED 3000MG APAP/24 HOURS 325 mg 12/20 Inactiv e 2023 88208 26995 0 Every 4 hours as needed By Mouth False Baclofen 20 mg tablet [generic] 20 mg By Mouth 4 times a day For MUSCLE SPASMS 20 mg 12/20 Inactiv e 2023 91500 89181 1 4 times a day By Mouth False Calcium citrate 250 mg tablet [generic] Once daily TAKE 4 TABLETS (1000MG) BY MOUTH For SUPPLEMENT 1000 MG 06/26 Inactiv e 2023 90116 12870 6 Once daily By Mouth False Dulcolax (bisacodyl) 10 mg rectal suppository 10 mg Rectal Once daily For CONSTIPATION *MAY HOLD FOR LOOSE STOOLS* 10 mg 2023 Active 2023 94412 58204 1 Once daily Rectal False Gabapentin 300 mg capsule [generic] 300 mg By Mouth 3 times a day For NEUROPATHY 300 mg 2023 Active 2023 41188 78903 4 3 times a day By Mouth False Potassium citrate ER 15 mEq (1,620 mg) tablet,exte nded release [generic] 15 mEq By Mouth 3 times a day For SUPPLEMENT/DI URETIC USE/HYPOCITRA URIA 15 mEq 06/11 Inactiv e 2023 40800 30299 1 3 times a day By Mouth False Potassium chloride ER 20 mEq tablet,exte nded release [generic] 20 mEq By Mouth 3 times a day *DO NOT CRUSH, CHEW OR BREAK* For SUPPLEMENT 20 mEq 12/18 Inactiv e 2023 32325 73229 1 3 times a day By Mouth False Tizanidine 4 mg tablet [generic] 4 mg By Mouth Once daily For MUSCLE SPASMS 4 mg 2023 Active 2023 74561 36582 0 Once daily By Mouth False Tylenol 325 mg tablet 2 tabs By Mouth Every 4 hours as needed For Fever >100 DO NOT EXCEED 3000 MG APAP/24 Hours 2 tabs 12/20 Inactiv e 2023 72351 40890 0 Every 4 hours as needed By Mouth False Dulcolax (bisacodyl) 10 mg rectal suppository Daily as needed For Constipation 1 sup 12/20 Inactiv e 2023 16461 61506 1 Daily as needed Rectal False Fleet Enema 19 gram-7 gram/118 mL 1 Rectal Daily as neededFor Constipation 1 12/20 Inactiv e 2023 01516 12632 6 Daily as needed Rectal False Milk of Magnesia 400 mg/5 mL oral suspension [Magnesium hydroxide] PRN 30ml By Mouth Daily as needed for constipation one time daily if no BM, on day 4 of no BM (PRN refer to instructions) For Constipation For Constipatioin 30ml 12/20 Inactiv e 2023 83304 44838 6 1 time By Mouth False Melatonin 3 mg tablet [generic] 3 mg By Mouth Once daily As Needed For INSOMNIA 3 mg 12/20 Inactiv e 2023 36997 69034 8 Once daily By Mouth False Hydrocortis one 1 % topical cream [generic] 1 % Rectal Four times daily as needed For hemorroid pain 1 % 12/20 Inactiv e 2023 90844 60249 1 Four times daily as needed Rectal False X-STGH ANTACID 750MG CHEW TAKE (1) TABLET BY MOUTH THREE TIMES DAILY NEEDED FOR INDIGESTION 12/20 Inactiv e 2023 67292 39785 4 Three times daily as needed Saline Mist 0.65 % nasal spray aerosol 0.65 % Nares Four times daily as needed For DRYNESS 0.65 % 12/20 Inactiv e 2023 86613 74883 8 Four times daily as needed Nares False Vicks Vaporub 4.7 %-1.2 %-2.6 % topical ointment Apply topically to chest Three times daily as needed For CONGESTION 4.7-1.2 -2.6 12/20 Inactiv e 2023 11349 68973 1 Three times daily as needed Topica l False VITAMIN D3 2000U CAP TAKE ONE (1) CAPSULE BY MOUTH DAILY* DO NOT CRUSH, CHEW OR BREAK* For Supplement 1 capsule 12/19 Inactiv e 2023 31014 92798 0 Once daily By Mouth False Potassium chloride ER 20 mEq tablet,exte nded release(par t/cryst) [generic] TAKE (1) TABLET BY MOUTH THREE TIMES DAILY (MORNING, AFTERNOON, EVENING)*DO NOT CRUSH, CHEW, OR BREAK* For SUPPLEMENT 20 MEQ 06/11 Inactiv e 2023 44377 36111 5 3 times a day By Mouth False Aspirin 81 mg tablet,camron yed release [generic] TAKE ONE (1) TABLET BY MOUTH ONCE DAILY*DO NOT CRUSH, CHEW OR BREAK* For CAD 81 MG 12/22 Inactiv e 2023 31755 87699 0 Once daily By Mouth False Furosemide 20 mg tablet [generic] TAKE 1 AND 1/2 TABLETS (30MG) BY MOUTH ONCE DAILY For CHF 30mg 2023 Active 2023 68448 52245 1 Once daily By Mouth False Polyethylen e glycol 3350 17 gram/dose oral powder [generic] MIX 17 GRAMS (1 CAPFUL) IN 60Z OF LIQUID AND DRINK BY MOUTH ONCE DAILY *HOLD FOR LOOSE STOOLS* For constipation 17 g 2023 Active 2023 40040 38844 3 Once daily By Mouth False Vitamin D3 50 mcg (2,000 unit) capsule Once daily TAKE ONE (1) CAPSULE BY MOUTH DAILY* DO NOT CRUSH, CHEW OR BREAK* For Supplement 1 capsule 02/07 Inactiv e 2023 22959 18037 2 Once daily By Mouth False Fleet Enema 19 gram-7 gram/118 mL 1 Rectal Daily as neededFor Constipation 1 2023 0000 Active 2023 06752 16461 6 Daily as needed Rectal False Tums E-X 300 mg (as calcium carbonate 750 mg) chewable tablet 1 tab By Mouth TAKE (1) TABLET BY MOUTH THREE TIMES DAILY NEEDED FOR INDIGESTION 1 tab 202300 /0000 Active 2023 40244 35377 1 Three times daily as needed By Mouth False Tylenol 325 mg tablet 2 tabs By Mouth Every 4 hours as needed For Fever >100 DO NOT EXCEED 3000 MG APAP/24 Hours 2 tabs 202300 /0000 Active 2023 33828 99824 0 Every 4 hours as needed By Mouth False Vicks Vaporub 4.7 %-1.2 %-2.6 % topical ointment Apply topically to chest Three times daily as needed For CONGESTION topical 202300 Active 2023 23470 43039 1 Three times daily as needed Topica l False Tylenol 325 mg tablet 2 tabs By Mouth Every 4 hours as needed For DX- PAIN PRN FOR MILD PAIN, DO NOT EXCEED 3000MG APAP/24 HOURS 2 tabs 202300 Active 2023 57977 70768 0 Every 4 hours as needed By Mouth False Tramadol 50 mg tablet [generic] 1 tab By Mouth Every 4 hours as needed For DX- PAIN 5-10 1 tab 03/10 Inactiv e 2023 67843 08484 0 Every 4 hours as needed By Mouth False Saline Mist 0.65 % nasal spray aerosol 2 sprays Nares Four times daily as needed For DRYNESS 2 sprays 202300 / Active 2023 76049 82710 8 Four times daily as needed Nares False Dulcolax (bisacodyl) 10 mg rectal suppository Daily as needed For Constipation 1 sup 202300 / Active 2023 49183 86440 1 Daily as needed Rectal False Hydrocortis one-pramoxi ne 1 %-1 % rectal cream [generic] 1 mague Rectal Four times daily as needed For hemorroid pain 1 mague 202300 /0000 Active 2023 77211 07983 4 Four times daily as needed Rectal False Melatonin 3 mg tablet [generic] 1 tab By Mouth At bedtime as needed For INSOMNIA 1 tab 12/24 Inactiv e 2023 67507 40388 8 At bedtime as needed By Mouth False Milk of Magnesia 400 mg/5 mL oral suspension 30ml By Mouth Daily as needed Daily as needed for constipation one time daily if no BM, on day 4 of no BM (PRN refer to instructions) For Constipation For Constipatioin 30ml 2023 Active 2023 13775 21044 2 Daily as needed By Mouth False Baclofen 20 mg tablet [generic] 20 mg By Mouth 4 times a day For MUSCLE SPASMS 20 mg 2023 Active 2023 21767 85046 1 4 times a day By Mouth False Melatonin 3 mg tablet [generic] 1 tab By Mouth At bedtime as needed For INSOMNIA 1 tab 2023 Active 2023 66693 25648 8 At bedtime as needed By Mouth False Bactrim DS 800 mg-160 mg tablet 1 tab By Mouth Twice daily For URINARY TRACT INFECTION, SITE NOT SPECIFIED 1 tab 01/06 Inactiv e 2023 33603 73364 1 Twice daily By Mouth N39.0 False Cefdinir 300 mg capsule [generic] 300 mg By Mouth Twice daily For UTI 300 mg 01/07 Inactiv e 2023 71261 23878 0 Twice daily By Mouth False Cefdinir 300 mg capsule [generic] 300 mg By Mouth Twice daily For UTI 300 mg 01/17 Inactiv e 2023 72089 88967 0 Twice daily By Mouth False Zyrtec 10 mg tablet 10 mg By Mouth Once daily For sinus congestion 10 mg 01/22 Inactiv e 2023 32487 19201 0 Once daily By Mouth False Tobramycin 0.3 %-dexametha sone 0.1 % eye drops,suspe nsion [generic] 0.3-0.1 % Left Eye 4 times a day For eye infection 0.3-0.1 % 02/05 Inactiv e 2023 04799 89716 5 4 times a day Left Eye False Fluconazole 150 mg tablet [generic] 150 mg By Mouth 1 time For yeast infection 150 mg 02/15 Inactiv e 2023 14501 05834 2 1 time By Mouth False Tramadol 50 mg tablet [generic] 1 tab By Mouth Every 4 hours as needed For DX- PAIN 5-10 1 tab 2023 00/00 /0000 Active 2023 84496 15200 0 Every 4 hours as needed By Mouth False Tobramycin 0.3 %-dexametha sone 0.1 % eye drops,suspe nsion [generic] 1 drop Left Eye 4 times a day For Inflammation of left eye 1 drop 05/08 Inactiv e 2023 76381 36357 5 4 times a day Left Eye False Voltaren Arthritis Pain 1 % topical gel 2 gm Topical Twice daily to rigth shoulder for 2 weeks For pain 2 gm 05/08 Inactiv e 2023 17368 03375 1 Twice daily Topica l False Chlorthalid one 25 mg tablet [generic] 12.5mg By Mouth Once daily For HTN 12.5mg 05/06 Inactiv e 2023 16467 55409 0 Once daily By Mouth False Chlorthalid one 25 mg tablet [generic] 12.5mg By Mouth Once daily For HTN 12.5mg 05/07 Inactiv e 2023 65458 13491 0 Once daily By Mouth False Chlorthalid one 25 mg tablet [generic] 05/07 Inactiv e 2023 88767 98397 0 Chlorthalid one 25 mg tablet [generic] 12.5mg By Mouth Once daily For HTN 12.5mg 06/26 Inactiv e 2023 75913 71279 0 Once daily By Mouth False Norvasc 5 mg tablet 5mg By Mouth Once daily, hold medication if systolic is less than 90 For HYPERTENSIVE HEART DISEASE WITHOUT HEART FAILURE 5mg 06/03 Inactiv e 2023 00836 96807 1 Once daily By Mouth I11.9 False Norvasc 5 mg tablet 5mg By Mouth Once daily, hold medication if systolic is less than 90 For HYPERTENSIVE HEART DISEASE WITHOUT HEART FAILURE 5mg 06/03 Inactiv e 2023 42794 41485 1 Once daily By Mouth I11.9 False Norvasc 5 mg tablet 5mg By Mouth Once daily, hold medication if systolic is less than 90 For HYPERTENSIVE HEART DISEASE WITHOUT HEART FAILURE 5mg 06/26 Inactiv e 2023 27546 15027 1 Once daily By Mouth I11.9 False [...] 10 mg 2023 00/00 /0000 Active 2023 05913 01844 1 Once daily By Mouth False DISCONTINUE [...] CAD 81 mg 06/14 Inactiv e 2023 49763 55485 9 Once daily By Mouth False Aspirin 81 mg tablet,camron yed release [generic] 06/14 Inactiv e 2023 12333 17736 9 Aspirin 81 mg tablet,camron yed release [generic] 81 mg By Mouth Once daily Do not crush, chew, or break For CAD 81 mg 06/154 Inactiv e 2023 59691 59487 9 Once daily By Mouth False Cefpodoxime 200 mg tablet [generic] 200mg By Mouth Twice daily For UTI 200mg 07/04 Inactiv e 2023 21054 54064 0 Twice daily By Mouth False Calcium citrate 250 mg tablet [generic] 06/26 Inactiv e 2023 32060 87460 6 Calcium citrate 250 mg tablet [generic] Once daily TAKE 4 TABLETS (1000MG) BY MOUTH For SUPPLEMENT 500 MG 2023 Active 2023 67286 27239 6 Once daily By Mouth False Norvasc 5 mg tablet 7.5 mg By Mouth Once daily Hold medication if SBP <90 For HYPERTENSIVE HEART DISEASE WITHOUT HEART FAILURE 7.5 mg 06/30 Inactiv e 2023 09986 92862 1 Once daily By Mouth I11.9 False Norvasc 5 mg tablet 7.5 mg By Mouth Once daily Hold medication if SBP <90 For HYPERTENSIVE HEART DISEASE WITHOUT HEART FAILURE 7.5 mg 2023 Active 2023 27230 41288 1 Once daily By Mouth I11.9 False Simethicone 125 mg capsule [generic] 2 capule By Mouth Twice daily as needed For bloating/gas pain 2 capule 2023 Active 2023 89998 03266 0 Twice daily as needed By Mouth False Cepacol Sore Throat (benzocaine -menthol) 15 mg-2.6 mg lozenges 2 lozenges By Mouth Every 6 hours as needed For sore throat 2 lozenge s 2023 Active 2023 56082 25531 6 Every 6 hours as needed By Mouth False Cefepime 1 gram solution for injection [generic] 1g Intramuscular Every 12 hours 1g intramuscular ly ever 12 hours For UTI 1g 2023 Active 2023 74432 84576 4 Every 12 hours Intram uscula r False Nystatin 100,000 unit/gram topical cream [generic] 100,000 unit Topical As Needed For DX- EXCORIATION 100,000 unit 12/12 Inactiv e 2023 63638 57440 5 Topica l False Vicks Vaporub 4.7 %-1.2 %-2.6 % topical ointment 4.7-1.2-2.6 Topical 3 times a day As Needed For DX- CONGESTION 4.7-1.2 -2.6 12/12 Inactiv e 2023 87311 90995 1 3 times a day Topica l False Ketoconazol e 2 % shampoo [generic] APPLY SHAMPOO TOPICALLY TO SCALP DURING HAIR WASHINGDX: ELVIA DERM OF SCALP For DX- ELVIA DERM OF SCALP 12/12 Inactiv e 2023 82390 15482 4 Topica l False THERA SILICONE SKIN GUARD Topical Twice daily 1 APPLICATION TOPICALLY IN THE MORNING AND AT BEDTIME TO SCROTUM For DX- PREVENTION 2023 Active 2023 Twice daily Topica l False Selenium sulfide 2.5 % lotion [generic] 2.5 % Topical EVERY MONDAY, MONDAY AND MONDAY AFTER SHOWER For DANDRUFF 2.5 % 202300 Active 2023 45811 03807 4 3 times a week Topica l False Nystatin (bulk) 100 million unit powder [generic] 100 million Topical Twice daily as needed For EXOCORATION 100 million 12/20 Inactiv e 2023 36071 77273 1 Twice daily as needed Topica l False Ketoconazol e 2 % shampoo [generic] Once daily APPLY SHAMPOO TOPICALLY TO SCALP DURING HAIR WASHING ON SHOWER DAYS- , , MON For ELVIA DERM OF SCAP 2 % 202300 Active 2023 86452 24049 4 Once daily Topica l False Nystatin 100,000 unit/gram topical cream [generic] 1 mague Topical Twice daily as needed For EXOCORATION 1 mague 06/05 Inactiv e 2023 07442 78068 5 Twice daily as needed Topica l False Nystatin 100,000 unit/gram topical powder [generic] 100,000 unit Topical Twice daily to scrotum with AM and PM care For Scrotal excoriation 100,000 unit 06/05 Inactiv e 2023 62048 96136 5 Twice daily Topica l False Problems [...] of urinary device 07/21/2023 Active 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 07/21 Active N31.9 Neuromuscular dysfun ction of bladder, unspecified 07/21/2023 Active VITAL SIGNS Date Time Diastolic blood pressure Systolic blood pressure Body height Body weight Temperature SpO2 Blood Sugar Pulse Respirations 128 27636 0 80.00 mm[Hg] - Sitting 154.00 mm[Hg] - Sitting 129 03023 3 83.00 mm[Hg] - Sitting 174.00 mm[Hg] - Sitting 130 58503 5 78.00 mm[Hg] - Sitting 152.00 mm[Hg] - Sitting 96897 201 28319 1 87.00 mm[Hg] - Sitting 189.00 mm[Hg] - Sitting 47403 202 01332 2 76.00 mm[Hg] - Sitting 136.00 mm[Hg] - Sitting 76695 203 71779 2 259.80 NI 71877 203 46032 5 93.00 mm[Hg] - Sitting 137.00 mm[Hg] - Sitting 01373 204 39553 2 259.40 NI 59568 204 47229 1 78.00 mm[Hg] - Sitting 144.00 mm[Hg] - Sitting 84362 205 16038 4 85.00 mm[Hg] - Sitting 142.00 mm[Hg] - Sitting 69947 206 03651 9 76.00 mm[Hg] - Sitting 132.00 mm[Hg] - Sitting 32091 208 84491 9 82.00 mm[Hg] - Sitting 128.00 mm[Hg] - Sitting 87113 209 66410 2 78.00 mm[Hg] - Sitting 130.00 mm[Hg] - Sitting 86872 210 20940 6 80.00 mm[Hg] - Sitting 132.00 mm[Hg] - Sitting 64881 211 40570 5 78.00 mm[Hg] - Sitting 125.00 mm[Hg] - Sitting 35819 216 18791 1 254.10 NI 74670 216 00166 2 79.00 mm[Hg] - Sitting 157.00 mm[Hg] - Sitting 73 NI 254.10 NI 36.30 Tympanic 95.00 % 72.00/ min 16.00/min 28042 216 76097 4 98.80 Tympanic 58639 216 98447 2 78.00 mm[Hg] - Sitting 164.00 mm[Hg] - Sitting 31857 217 16728 3 98.20 Tympanic 82620 217 91111 5 73.00 mm[Hg] - Sitting 159.00 mm[Hg] - Sitting 88106 217 06443 9 98.40 Forehead Scan 53581 218 07528 3 97.90 Tympanic 07698 218 21483 5 77.00 mm[Hg] - Sitting 137.00 mm[Hg] - Sitting 75155 219 80406 0 97.70 Tympanic 93084 219 72889 6 97.60 Tympanic 26133 219 56296 4 76.00 mm[Hg] - Sitting 139.00 mm[Hg] - Sitting 96707 219 05096 4 97.80 Forehead Scan 32987 220 10029 9 97.90 Tympanic 71633 220 48300 9 76.00 mm[Hg] - Sitting 138.00 mm[Hg] - Sitting 19684 220 12391 6 98.10 Tympanic 50899 221 32982 5 67.00 mm[Hg] - Sitting 142.00 mm[Hg] - Sitting 42726 221 08950 8 98.20 Tympanic 27805 221 46572 0 98.30 Tympanic 22185 222 16750 7 98.20 Tympanic 55598 222 55901 8 97.90 Tympanic 42994 223 99933 3 98.20 Tympanic 06114 223 37525 3 98.00 Tympanic 16181 224 13705 0 59.00 mm[Hg] - Sitting 111.00 mm[Hg] - Sitting 98.40 Forehead Scan 95.00 % 56.00/ min 18.00/min 36497 224 77136 9 98.20 Forehead Scan 32342 224 23121 3 97.90 Tympanic 95856 225 80499 4 98.20 Tympanic 19778 225 10259 8 97.50 Forehead Scan Immunizations Vaccine Date [...]
--- OUTSIDE RECORDS SUMMARY | 2024-07-26 11:26 | External Medical Summary | Continuity Of Care Document ---
Author Name Unknown Address [address] [place] [address] Organization [facility] () Care Team Providers Care Welcome Hostess Name Role Phone DO Pritchett Amy Primary Care Provider [phone] Allergies Allergy Reaction Start Date End Date Status AMINOGLYCOSIDES Active CIPRO Active GENTAMICIN Active NSAIDS (NON-STEROIDAL ANTI-INFLAMMATORY DRUG) 0 Active IBUPROFEN Active QUINOLONES Active VALIUM Active Medications Medication Instructions Dosage Start Date End Date Status Order Date Drug Code Frequency Route of Admin Diagnosis Code Substitutions Allowed Spikevax [id number](1 2y up)(PF) 50 mcg/0.5 mL intramuscul ar suspension [COVID [id number](12 up)(andu)(P F)] 0.5mL Intramuscular 1 time Monitory 15 Minutes post injection for adverse effects; record site/temp For COVID 19 PREVENTION 0.5mL 01/02 Inactiv e 2023 02195 00460 4 1 time Intram uscula r False [facility] - Nurse initials indicate verificatio n that [id number] vaccine was administere d by [facility] 1 Intramuscular 1 time ( Indicate vaccine type) For vaccine 1 05/03 Inactiv e 2023 1 time Intram uscula r False Lisinopril 40 mg tablet [generic] TAKE ONE (1) TABLET BY MOUTH IN THE MORNING. For DX- HTN 1 2023 Active 2023 44646 41416 1 Once daily By Mouth False Tizanidine 2 mg tablet [generic] TAKE ONE (1) TABLET BY MOUTH ONCE DAILY For MUSCLE SPASM 1 2023 Active 2023 15916 60794 0 Once daily By Mouth M62.838 False Tamsulosin 0.4 mg capsule [generic] TAKE (1) CAPSULE BY MOUTH AT BEDTIME For SPASMS 1 2023 Active 2023 91790 42946 0 Once daily By Mouth False Aspirin 81 mg tablet Once daily 1 TABLET BY MOUTH IN THE MORNING For DX- CAD DO NOT CRUSH, CHEW OR BREAK 81 mg 06/12 Inactiv e 2023 Once daily By Mouth False Baclofen 20 mg tablet [generic] 20 mg By Mouth 4 times a day For DX- MUSCLE SPASMS 20 mg 12/12 Inactiv e 2023 74422 95435 1 4 times a day By Mouth False Calcium citrate 250 mg tablet Once daily 4 TABLET BY MOUTH For DX- SUPPLEMENT 250 mg calci 12/12 Inactiv e 2023 Once daily By Mouth False Co Q-10 100 mg capsule 100 mg By Mouth Once daily For DX- SUPPLEMENT 100 mg 06/20 Inactiv e 2023 56265 10652 5 Once daily By Mouth False Furosemide 20 mg tablet [generic] 20 mg By Mouth Once daily For DX-CHF 20 mg 12/12 Inactiv e 2023 96439 46131 0 Once daily By Mouth False Gabapentin 300 mg capsule [generic] 300 mg By Mouth 3 times a day For DX- NEUROPATHY 300 mg 12/12 Inactiv e 2023 74896 43483 4 3 times a day By Mouth False Loratadine 10 mg tablet [generic] 10 mg By Mouth Once daily For DX- ALLERGIES 10 mg 2023 Active 2023 69867 09183 1 Once daily By Mouth False Miralax 17 gram/dose oral powder 17 gram/dose By Mouth IN THE MORNING Mix 1 TABLESPOON IN 8 OZ OF FLUID HOLD FOR LOOSE STOOLS For DX- CONSTIPATION 17 gram/do se 12/12 Inactiv e 2023 02363 54508 0 Once daily By Mouth False Paroxetine 30 mg tablet [generic] 30 mg By Mouth Once daily For DX- DEPRESSION 30 mg 2023 00/00 /0000 Active 2023 54930 63125 3 Once daily By Mouth False Potassium citrate ER 15 mEq (1,620 mg) tablet,exte nded release [generic] 15 mEq By Mouth 3 times a day For DX- SUPPLEMENT/DI URETIC USE/ HYPOCITRAUIRA DO NOT CRUSH 15 mEq 12/12 Inactiv e 2023 10065 48467 1 3 times a day By Mouth [...] For DX- DANDRUFF 12/12 Inactiv e 2023 10650 45388 4 3 times a week Topica l False Acetaminoph en 325 mg tablet [generic] TAKE 2 TABS (650MG) BY MOUTH EVERY 4 HOURS NEEDED FOR TEMP >100 NOT TO EXCEED 3GM/24HRS TAKE 2 TABS (650MG) BY MOUTH EVERY 4 HOURS NEEDED FOR TEMP >100 NOT TO EXCEED 3GM/24HRS For DX-FEVER 2 12/12 Inactiv e 2023 79090 77733 0 By Mouth False MILK OF MAGNESIA ADMINISTER 30 ML BY MOUTH ONCE DAILY NEEDED FOR CONSTIPATION X3 DAYS WITH NO BM. For DX- CONSTIPATION 30ML 12/12 Inactiv e 2023 19910 60742 9 By Mouth False Enema Disposable 19 gram-7 gram/118 mL ADMINISTER ONE ENEMA RECTALLY ONCE DAILY NEEDED FOR CONSTIPATION ON DAY 6 OF NO BM For DX- CONSTIPATION 12/12 Inactiv e 2023 19171 31421 1 Rectal False TUMS EXTRA STR 750MG TAKE (1) TABLET BY MOUTH THREE TIMES DAILY NEEDED FOR INDIGESTION For DX- INDIGESTION 1 12/12 Inactiv e 2023 76262 50690 8 By Mouth False Vitamin D3 25 [...] CONSTIPATION 10 mg 12/12 Inactiv e 2023 80284 89134 1 Rectal False Melatonin 3 mg tablet [generic] 3 mg By Mouth As Needed For DX-INSOMMIA 3 mg 12/12 Inactiv e 2023 74460 55381 8 By Mouth False Hydrocortis one 1 % topical cream [generic] 1 % Topical As Needed For DX- PAIN 1 % 12/12 Inactiv e 2023 27249 33243 1 Topica l False HYDROCORTIS ONE/PARMOXI NE [...] 5-10 50 mg 12/20 Inactiv e 2023 95625 34972 0 Every 4 hours as needed By Mouth False Tylenol 325 mg tablet 325 mg By Mouth Every 4 hours as needed For DX- PAIN PRN FOR MILD PAIN, DO NOT EXCEED 3000MG APAP/24 HOURS 325 mg 12/20 Inactiv e 2023 74388 87930 0 Every 4 hours as needed By Mouth False Baclofen 20 mg tablet [generic] 20 mg By Mouth 4 times a day For MUSCLE SPASMS 20 mg 12/20 Inactiv e 2023 07471 11558 1 4 times a day By Mouth False Calcium citrate 250 mg tablet [generic] Once daily TAKE 4 TABLETS (1000MG) BY MOUTH For SUPPLEMENT 1000 MG 06/26 Inactiv e 2023 05302 50726 6 Once daily By Mouth False Dulcolax (bisacodyl) 10 mg rectal suppository 10 mg Rectal Once daily For CONSTIPATION *MAY HOLD FOR LOOSE STOOLS* 10 mg 2023 Active 2023 04313 15009 1 Once daily Rectal False Gabapentin 300 mg capsule [generic] 300 mg By Mouth 3 times a day For NEUROPATHY 300 mg 2023 Active 2023 03380 17288 4 3 times a day By Mouth False Potassium citrate ER 15 mEq (1,620 mg) tablet,exte nded release [generic] 15 mEq By Mouth 3 times a day For SUPPLEMENT/DI URETIC USE/HYPOCITRA URIA 15 mEq 06/11 Inactiv e 2023 95099 80334 1 3 times a day By Mouth False Potassium chloride ER 20 mEq tablet,exte nded release [generic] 20 mEq By Mouth 3 times a day *DO NOT CRUSH, CHEW OR BREAK* For SUPPLEMENT 20 mEq 12/18 Inactiv e 2023 12534 71073 1 3 times a day By Mouth False Tizanidine 4 mg tablet [generic] 4 mg By Mouth Once daily For MUSCLE SPASMS 4 mg 2023 Active 2023 17230 48532 0 Once daily By Mouth False Tylenol 325 mg tablet 2 tabs By Mouth Every 4 hours as needed For Fever >100 DO NOT EXCEED 3000 MG APAP/24 Hours 2 tabs 12/20 Inactiv e 2023 33018 44343 0 Every 4 hours as needed By Mouth False Dulcolax (bisacodyl) 10 mg rectal suppository Daily as needed For Constipation 1 sup 12/20 Inactiv e 2023 45105 11369 1 Daily as needed Rectal False Fleet Enema 19 gram-7 gram/118 mL 1 Rectal Daily as neededFor Constipation 1 12/20 Inactiv e 2023 13712 39405 6 Daily as needed Rectal False Milk of Magnesia 400 mg/5 mL oral suspension [Magnesium hydroxide] PRN 30ml By Mouth Daily as needed for constipation one time daily if no BM, on day 4 of no BM (PRN refer to instructions) For Constipation For Constipatioin 30ml 12/20 Inactiv e 2023 60898 64090 6 1 time By Mouth False Melatonin 3 mg tablet [generic] 3 mg By Mouth Once daily As Needed For INSOMNIA 3 mg 12/20 Inactiv e 2023 43895 72730 8 Once daily By Mouth False Hydrocortis one 1 % topical cream [generic] 1 % Rectal Four times daily as needed For hemorroid pain 1 % 12/20 Inactiv e 2023 57552 30087 1 Four times daily as needed Rectal False X-STGH ANTACID 750MG CHEW TAKE (1) TABLET BY MOUTH THREE TIMES DAILY NEEDED FOR INDIGESTION 12/20 Inactiv e 2023 26440 88199 4 Three times daily as needed Saline Mist 0.65 % nasal spray aerosol 0.65 % Nares Four times daily as needed For DRYNESS 0.65 % 12/20 Inactiv e 2023 02459 22350 8 Four times daily as needed Nares False Vicks Vaporub 4.7 %-1.2 %-2.6 % topical ointment Apply topically to chest Three times daily as needed For CONGESTION 4.7-1.2 -2.6 12/20 Inactiv e 2023 28983 33438 1 Three times daily as needed Topica l False VITAMIN D3 2000U CAP TAKE ONE (1) CAPSULE BY MOUTH DAILY* DO NOT CRUSH, CHEW OR BREAK* For Supplement 1 capsule 12/19 Inactiv e 2023 96552 15857 0 Once daily By Mouth False Potassium chloride ER 20 mEq tablet,exte nded release(par t/cryst) [generic] TAKE (1) TABLET BY MOUTH THREE TIMES DAILY (MORNING, AFTERNOON, EVENING)*DO NOT CRUSH, CHEW, OR BREAK* For SUPPLEMENT 20 MEQ 06/11 Inactiv e 2023 06307 68028 5 3 times a day By Mouth False Aspirin 81 mg tablet,camron yed release [generic] TAKE ONE (1) TABLET BY MOUTH ONCE DAILY*DO NOT CRUSH, CHEW OR BREAK* For CAD 81 MG 12/22 Inactiv e 2023 27075 23361 0 Once daily By Mouth False Furosemide 20 mg tablet [generic] TAKE 1 AND 1/2 TABLETS (30MG) BY MOUTH ONCE DAILY For CHF 30mg 2023 Active 2023 42297 64788 1 Once daily By Mouth False Polyethylen e glycol 3350 17 gram/dose oral powder [generic] MIX 17 GRAMS (1 CAPFUL) IN 60Z OF LIQUID AND DRINK BY MOUTH ONCE DAILY *HOLD FOR LOOSE STOOLS* For constipation 17 g 2023 Active 2023 94877 67184 3 Once daily By Mouth False Vitamin D3 50 mcg (2,000 unit) capsule Once daily TAKE ONE (1) CAPSULE BY MOUTH DAILY* DO NOT CRUSH, CHEW OR BREAK* For Supplement 1 capsule 02/07 Inactiv e 2023 57642 46758 2 Once daily By Mouth False Fleet Enema 19 gram-7 gram/118 mL 1 Rectal Daily as neededFor Constipation 1 2023 0000 Active 2023 79666 84450 6 Daily as needed Rectal False Tums E-X 300 mg (as calcium carbonate 750 mg) chewable tablet 1 tab By Mouth TAKE (1) TABLET BY MOUTH THREE TIMES DAILY NEEDED FOR INDIGESTION 1 tab 202300 /0000 Active 2023 06387 23756 1 Three times daily as needed By Mouth False Tylenol 325 mg tablet 2 tabs By Mouth Every 4 hours as needed For Fever >100 DO NOT EXCEED 3000 MG APAP/24 Hours 2 tabs 202300 /0000 Active 2023 50222 09913 0 Every 4 hours as needed By Mouth False Vicks Vaporub 4.7 %-1.2 %-2.6 % topical ointment Apply topically to chest Three times daily as needed For CONGESTION topical 202300 Active 2023 19604 09724 1 Three times daily as needed Topica l False Tylenol 325 mg tablet 2 tabs By Mouth Every 4 hours as needed For DX- PAIN PRN FOR MILD PAIN, DO NOT EXCEED 3000MG APAP/24 HOURS 2 tabs 202300 Active 2023 92477 19662 0 Every 4 hours as needed By Mouth False Tramadol 50 mg tablet [generic] 1 tab By Mouth Every 4 hours as needed For DX- PAIN 5-10 1 tab 03/10 Inactiv e 2023 10632 16591 0 Every 4 hours as needed By Mouth False Saline Mist 0.65 % nasal spray aerosol 2 sprays Nares Four times daily as needed For DRYNESS 2 sprays 202300 / Active 2023 56022 08491 8 Four times daily as needed Nares False Dulcolax (bisacodyl) 10 mg rectal suppository Daily as needed For Constipation 1 sup 202300 / Active 2023 73082 80514 1 Daily as needed Rectal False Hydrocortis one-pramoxi ne 1 %-1 % rectal cream [generic] 1 mague Rectal Four times daily as needed For hemorroid pain 1 mague 202300 /0000 Active 2023 88000 98269 4 Four times daily as needed Rectal False Melatonin 3 mg tablet [generic] 1 tab By Mouth At bedtime as needed For INSOMNIA 1 tab 12/24 Inactiv e 2023 41073 61596 8 At bedtime as needed By Mouth False Milk of Magnesia 400 mg/5 mL oral suspension 30ml By Mouth Daily as needed Daily as needed for constipation one time daily if no BM, on day 4 of no BM (PRN refer to instructions) For Constipation For Constipatioin 30ml 2023 Active 2023 43818 84014 2 Daily as needed By Mouth False Baclofen 20 mg tablet [generic] 20 mg By Mouth 4 times a day For MUSCLE SPASMS 20 mg 2023 Active 2023 72628 24910 1 4 times a day By Mouth False Melatonin 3 mg tablet [generic] 1 tab By Mouth At bedtime as needed For INSOMNIA 1 tab 2023 Active 2023 64005 41089 8 At bedtime as needed By Mouth False Bactrim DS 800 mg-160 mg tablet 1 tab By Mouth Twice daily For URINARY TRACT INFECTION, SITE NOT SPECIFIED 1 tab 01/06 Inactiv e 2023 11206 75195 1 Twice daily By Mouth N39.0 False Cefdinir 300 mg capsule [generic] 300 mg By Mouth Twice daily For UTI 300 mg 01/07 Inactiv e 2023 39729 99192 0 Twice daily By Mouth False Cefdinir 300 mg capsule [generic] 300 mg By Mouth Twice daily For UTI 300 mg 01/17 Inactiv e 2023 82847 70858 0 Twice daily By Mouth False Zyrtec 10 mg tablet 10 mg By Mouth Once daily For sinus congestion 10 mg 01/22 Inactiv e 2023 95429 61887 0 Once daily By Mouth False Tobramycin 0.3 %-dexametha sone 0.1 % eye drops,suspe nsion [generic] 0.3-0.1 % Left Eye 4 times a day For eye infection 0.3-0.1 % 02/05 Inactiv e 2023 53879 42549 5 4 times a day Left Eye False Fluconazole 150 mg tablet [generic] 150 mg By Mouth 1 time For yeast infection 150 mg 02/15 Inactiv e 2023 08887 49646 2 1 time By Mouth False Tramadol 50 mg tablet [generic] 1 tab By Mouth Every 4 hours as needed For DX- PAIN 5-10 1 tab 2023 00/00 /0000 Active 2023 90882 21316 0 Every 4 hours as needed By Mouth False Tobramycin 0.3 %-dexametha sone 0.1 % eye drops,suspe nsion [generic] 1 drop Left Eye 4 times a day For Inflammation of left eye 1 drop 05/08 Inactiv e 2023 35062 61765 5 4 times a day Left Eye False Voltaren Arthritis Pain 1 % topical gel 2 gm Topical Twice daily to rigth shoulder for 2 weeks For pain 2 gm 05/08 Inactiv e 2023 94643 56021 1 Twice daily Topica l False Chlorthalid one 25 mg tablet [generic] 12.5mg By Mouth Once daily For HTN 12.5mg 05/06 Inactiv e 2023 53198 39759 0 Once daily By Mouth False Chlorthalid one 25 mg tablet [generic] 12.5mg By Mouth Once daily For HTN 12.5mg 05/07 Inactiv e 2023 45938 19690 0 Once daily By Mouth False Chlorthalid one 25 mg tablet [generic] 05/07 Inactiv e 2023 63685 34816 0 Chlorthalid one 25 mg tablet [generic] 12.5mg By Mouth Once daily For HTN 12.5mg 06/26 Inactiv e 2023 01571 80197 0 Once daily By Mouth False Norvasc 5 mg tablet 5mg By Mouth Once daily, hold medication if systolic is less than 90 For HYPERTENSIVE HEART DISEASE WITHOUT HEART FAILURE 5mg 06/03 Inactiv e 2023 65179 54095 1 Once daily By Mouth I11.9 False Norvasc 5 mg tablet 5mg By Mouth Once daily, hold medication if systolic is less than 90 For HYPERTENSIVE HEART DISEASE WITHOUT HEART FAILURE 5mg 06/03 Inactiv e 2023 33300 30438 1 Once daily By Mouth I11.9 False Norvasc 5 mg tablet 5mg By Mouth Once daily, hold medication if systolic is less than 90 For HYPERTENSIVE HEART DISEASE WITHOUT HEART FAILURE 5mg 06/26 Inactiv e 2023 49493 36463 1 Once daily By Mouth I11.9 False [...] 10 mg 2023 00/00 /0000 Active 2023 60616 58193 1 Once daily By Mouth False DISCONTINUE [...] CAD 81 mg 06/14 Inactiv e 2023 59357 61213 9 Once daily By Mouth False Aspirin 81 mg tablet,camron yed release [generic] 06/14 Inactiv e 2023 86666 24302 9 Aspirin 81 mg tablet,camron yed release [generic] 81 mg By Mouth Once daily Do not crush, chew, or break For CAD 81 mg 06/154 Inactiv e 2023 57579 40137 9 Once daily By Mouth False Cefpodoxime 200 mg tablet [generic] 200mg By Mouth Twice daily For UTI 200mg 07/04 Inactiv e 2023 63452 85866 0 Twice daily By Mouth False Calcium citrate 250 mg tablet [generic] 06/26 Inactiv e 2023 73235 00042 6 Calcium citrate 250 mg tablet [generic] Once daily TAKE 4 TABLETS (1000MG) BY MOUTH For SUPPLEMENT 500 MG 202300 Active 2023 72943 48122 6 Once daily By Mouth False Norvasc 5 mg tablet 7.5 mg By Mouth Once daily Hold medication if SBP <90 For HYPERTENSIVE HEART DISEASE WITHOUT HEART FAILURE 7.5 mg 06/30 Inactiv e 2023 65100 89774 1 Once daily By Mouth I11.9 False Norvasc 5 mg tablet 7.5 mg By Mouth Once daily Hold medication if SBP <90 For HYPERTENSIVE HEART DISEASE WITHOUT HEART FAILURE 7.5 mg 2023 Active 2023 46701 62251 1 Once daily By Mouth I11.9 False Simethicone 125 mg capsule [generic] 2 capule By Mouth Twice daily as needed For bloating/gas pain 2 capule 2023 Active 2023 62099 34831 0 Twice daily as needed By Mouth False Cepacol Sore Throat (benzocaine -menthol) 15 mg-2.6 mg lozenges 2 lozenges By Mouth Every 6 hours as needed For sore throat 2 lozenge s 2023 Active 2023 29851 38319 6 Every 6 hours as needed By Mouth False Cefepime 1 gram solution for injection [generic] 1g Intramuscular Every 12 hours 1g intramuscular ly ever 12 hours For UTI 1g 07/06 Inactiv e 2023 16655 74651 4 Every 12 hours Intram uscula r False Cefepime 1 gram solution for injection [generic] 07/06 Inactiv e 2023 17484 19559 4 Cefepime 1 gram solution for injection [generic] 1g Intramuscular Every 12 hours 1g intramuscular ly ever 12 hours For UTI Reconstitute with 2.4 ML of NSS. 1g 2023 0000 0000 Active 2023 10540 73851 4 Every 12 hours Intram uscula r False Nystatin 100,000 unit/gram topical cream [generic] 100,000 unit Topical As Needed For DX- EXCORIATION 100,000 unit 12/12 Inactiv e 2023 87133 31464 5 Topica l False Vicks Vaporub 4.7 %-1.2 %-2.6 % topical ointment 4.7-1.2-2.6 Topical 3 times a day As Needed For DX- CONGESTION 4.7-1.2 -2.6 12/12 Inactiv e 2023 96542 06245 1 3 times a day Topica l False Ketoconazol e 2 % shampoo [generic] APPLY SHAMPOO TOPICALLY TO SCALP DURING HAIR WASHINGDX: ELVIA DERM OF SCALP For DX- ELVIA DERM OF SCALP 12/12 Inactiv e 2023 79905 11254 4 Topica l False THERA SILICONE SKIN GUARD Topical Twice daily 1 APPLICATION TOPICALLY IN THE MORNING AND AT BEDTIME TO SCROTUM For DX- PREVENTION 2023 Active 2023 Twice daily Topica l False Selenium sulfide 2.5 % lotion [generic] 2.5 % Topical EVERY MONDAY, MONDAY AND MONDAY AFTER SHOWER For DANDRUFF 2.5 % 2023 Active 2023 81100 64307 4 3 times a week Topica l False Nystatin (bulk) 100 million unit powder [generic] 100 million Topical Twice daily as needed For EXOCORATION 100 million 12/20 Inactiv e 2023 36856 65332 1 Twice daily as needed Topica l False Ketoconazol e 2 % shampoo [generic] Once daily APPLY SHAMPOO TOPICALLY TO SCALP DURING HAIR WASHING ON SHOWER DAYS- LITTLE SAHA, SAT For ELVIA DERM OF SCAP 2 % 2023 Active 2023 62170 15885 4 Once daily Topica l False Nystatin 100,000 unit/gram topical cream [generic] 1 mague Topical Twice daily as needed For EXOCORATION 1 mague 06/05 Inactiv e 2023 02986 26730 5 Twice daily as needed Topica l False Nystatin 100,000 unit/gram topical powder [generic] 100,000 unit Topical Twice daily to scrotum with AM and PM care For Scrotal excoriation 100,000 unit 06/05 Inactiv e 2023 00588 77104 5 Twice daily Topica l False Problems [...] Active Z79.01 FPC (current) use of anticoagulants 01/12 /2024 Active N31.9 Neuromuscular dysfun ction of bladder, unspecified 07/21/2023 Active VITAL SIGNS Date Time Diastolic blood pressure Systolic blood pressure Body height Body weight Temperature SpO2 Blood Sugar Pulse Respirations 128 06672 0 80.00 mm[Hg] - Sitting 154.00 mm[Hg] - Sitting 129 25358 3 83.00 mm[Hg] - Sitting 174.00 mm[Hg] - Sitting 130 81561 5 78.00 mm[Hg] - Sitting 152.00 mm[Hg] - Sitting 57420 201 74358 1 87.00 mm[Hg] - Sitting 189.00 mm[Hg] - Sitting 202 51497 2 76.00 mm[Hg] - Sitting 136.00 mm[Hg] - Sitting 203 95397 2 259.80 NI 203 83871 5 93.00 mm[Hg] - Sitting 137.00 mm[Hg] - Sitting 204 42827 2 259.40 NI 204 74013 1 78.00 mm[Hg] - Sitting 144.00 mm[Hg] - Sitting 205 46681 4 85.00 mm[Hg] - Sitting 142.00 mm[Hg] - Sitting 206 88257 9 76.00 mm[Hg] - Sitting 132.00 mm[Hg] - Sitting 01259 208 70317 9 82.00 mm[Hg] - Sitting 128.00 mm[Hg] - Sitting 14236 209 49419 2 78.00 mm[Hg] - Sitting 130.00 mm[Hg] - Sitting 57706 210 87789 6 80.00 mm[Hg] - Sitting 132.00 mm[Hg] - Sitting 18914 211 02379 5 78.00 mm[Hg] - Sitting 125.00 mm[Hg] - Sitting 48075 216 49832 1 254.10 NI 14859 216 20815 2 79.00 mm[Hg] - Sitting 157.00 mm[Hg] - Sitting 73 NI 254.10 NI 36.30 Tympanic 95.00 % 72.00/ min 16.00/min 07696 216 89783 4 98.80 Tympanic 36977 216 75741 2 78.00 mm[Hg] - Sitting 164.00 mm[Hg] - Sitting 24582 217 65151 3 98.20 Tympanic 08503 217 03572 5 73.00 mm[Hg] - Sitting 159.00 mm[Hg] - Sitting 74144 217 01719 9 98.40 Forehead Scan 31169 218 57474 3 97.90 Tympanic 40531 218 10530 5 77.00 mm[Hg] - Sitting 137.00 mm[Hg] - Sitting 93497 219 05144 0 97.70 Tympanic 47196 219 75126 6 97.60 Tympanic 79506 219 85651 4 76.00 mm[Hg] - Sitting 139.00 mm[Hg] - Sitting 10369 219 55292 4 97.80 Forehead Scan 77437 220 02632 9 97.90 Tympanic 83737 220 51680 9 76.00 mm[Hg] - Sitting 138.00 mm[Hg] - Sitting 51311 220 01734 6 98.10 Tympanic 42585 221 75445 5 67.00 mm[Hg] - Sitting 142.00 mm[Hg] - Sitting 64900 221 23018 8 98.20 Tympanic 31486 221 71204 0 98.30 Tympanic 74580 222 46968 7 98.20 Tympanic 09466 222 86235 8 97.90 Tympanic 38380 223 04976 3 98.20 Tympanic 28388 223 55649 3 98.00 Tympanic 62854 224 14296 0 59.00 mm[Hg] - Sitting 111.00 mm[Hg] - Sitting 98.40 Forehead Scan 95.00 % 56.00/ min 18.00/min 49842 224 71024 9 98.20 Forehead Scan 63657 224 71384 3 97.90 Tympanic 01222 225 67943 4 98.20 Tympanic 63642 225 53125 8 97.50 Forehead Scan 41986 228 86168 0 55.00 mm[Hg] - Sitting 118.00 mm[Hg] [...]
[2024-07-26] MEDS ORDERED: VASOPRESSIN 20 UNIT/ML VIAL ONE (11:28)
[2024-07-26] MEDS: CEFEPIME 1000MG 1,000 MG/10 ML SYR IV ONE (11:29)
[2024-07-26] MEDS ORDERED: traMADol HCL 50 MG TABLET PO PRN ×2 (12:36→18:15)
--- NOTE | 2024-07-26 12:40 | Operative Report ---
PG Post Operative Report Pre & Post Diagnosis Operation Date: 07/26/24 10:50 Pre-Op Diagnosis: Calculus of Kidney Post-Op Diagnosis: Calculus of Kidney I identified the patient and participated in the time-out.: Yes Procedure Operation Date: 07/26/24 10:50 Actual Procedures p Cystoscopy,Right: Ureteronephroscopy, Retrograde Pyelogram, Laser Lithotripsy, Exchange of Stent Catheter(Right) - Jordan Barclay MD Surgeon Jordan Barclay MD Study Lead none Estimated Blood Loss 0 Findings Consistent with Post-Op Diagnosis Specimens none Description of Procedure The patient was identified in the preoperative holding area, appropriate informed consents were reviewed and completed and the patient was transferred to the operative suite. Upon arrival, appropriate antibiotics and anesthesia were administered and the patient was placed in dorsal lithotomy position and prepped and draped in sterile fashion. Begin the case I passed a flexible cystoscope per urethra. Inspection revealed a healthy-appearing urethra and moderately enlarged prostate with a flexible scope I was easily able to navigate beyond this and into the bladder. I first inspected and identified the location of the suprapubic tube. This was quite healthy and appropriately position. His bladder itself was quite healthy with minimal stone debris in the dependent portion. I could identify a stent protruding to the right orifice and I grasped the distal aspect of the stent and withdrew it to the meatus. I intubated with a sensor wire. The wire advanced to the kidney without difficulty. I then used a 10 Gabonese double-lumen catheter to advance a second wire into the kidney. A ureteral access sheath was placed before advancement of a flexible ureteroscope. There is a bit of a twist at the UPJ but I was able to navigate this and reach the renal pelvis. His renal pelvis was previously entirely filled with stone. We have created a significant amount of space with his prior surgery but he still has some debris and several large stone fragments within that portion of the kidney. I began working through these until the renal pelvis was essentially clear. I did opacify the collecting system at that time identifying all of the associated calyces. I was not able to advance the scope into the extreme lower pole calyx or the extreme upper pole calyx secondary to obstructing stone in the infundibula of each of these areas. I began working my way through these and made considerable progress. I ultimately was able to advance a wire into the extreme upper pole at the time that I concluded laser lithotripsy. I proceeded to extract the scope and access sheath and there was no trauma to the ureter. I utilized the previously position upper pole wire to place a 7 Gabonese by 26 cm double-J Coloplast stent. There is good curl in the upper pole as well as the bladder. I hope that the upper pole positioning of the stent will allow draining of the significant amount of debris that was still residing within the renal pelvis. Of note, utilizing her access sheath we were able to irrigate a substantial amount of stone debris free of the kidney. 20 Gabonese SP tube was changed without issue. He was reversed of anesthesia and taken the recovery room in stable condition. We will continue cefepime. He will follow-up in 2 weeks for a repeat surgery. I attest to the content of the Intraoperative Record and any orders documented therein. Any exceptions are noted below.
--- NOTE | 2024-07-26 13:14 | Anesthesiology Progress Note ---
Date of Service July 26, 2024 Anesthesia Post Procedure Vital Signs Vital Signs: Temp Pulse Pulse Resp BP Pulse Ox O2 Del Method 07/26/24 13:05 77 13 133/71 96 Oxymask 07/26/24 12:55 77 15 145/73 H 96 Oxymask 07/26/24 12:47 36.8 C 75 15 160/86 H 96 Oxymask 07/26/24 10:36 36.7 C 67 20 142/78 H 93 Room Air O2 Flow Rate 07/26/24 13:05 5 07/26/24 12:55 5 07/26/24 12:47 5 07/26/24 10:36 Transfer of Care Handoff Completed per policy Notes Mental Status: alert / awake / arousable Patient Amnestic to Procedure: Yes Nausea / Vomiting: adequately controlled Pain: adequately controlled Airway Patency, RR, SpO2: stable & adequate BP & HR: stable & adequate Hydration State: stable & adequate Anesthetic Complications: no major complications apparent and Pt Satisfied with anesthetic care
--- NOTE | 2024-07-26 14:49 | Fluoroscopy Report ---
FL retrograde includes kub CLINICAL HISTORY: RT SIDE RETROGRADE AND STENT PLACEMENT TECHNIQUE: 3 views were obtained with the C-arm in the OR with the above procedure. Total fluoroscopy time was 51.1 seconds. Radiation dose was 23.39 mGy. Comparison: Comparison is made to KUB 07/05/2024 FINDINGS/IMPRESSION: Intraoperative images were obtained of right retrograde pyelogram and stent plac ement. Please correlate with intraoperative fluoroscopy and operative report. ACT 112: Negative or not required by law. Electronically signed by: Bob Esposito M.D. 07/26/2024 2:07 PM
[2024-07-26] MEDS ORDERED: MELATONIN 3 MG TAB PO PRN (18:15)
[2024-07-26] MEDS ORDERED: CEFEPIME 1 GM IM SCH (18:15)
[2024-07-26] MEDS ORDERED: CALCIUM CARBONATE 500 MG CHEWABLE TAB PO PRN (19:47)
[2024-07-26] MEDS: DIATRIZOATE MEGLUMINE 30% 100ML VIAL INSTIL ONE (20:05)
[2024-07-26] MEDS: TAMSULOSIN HCL 0.4 MG CAP PO SCH (21:26)
[2024-07-26] MEDS: tiZANidine HCL 4 MG TABLET PO SCH (21:26)
[2024-07-26] MEDS: BACLOFEN 20 MG TAB PO SCH (21:26)
[2024-07-26] MEDS: ACETAMINOPHEN 325 MG TAB PO PRN (21:26)
[2024-07-26] MEDS: CEFEPIME 1000MG 1,000 MG/10 ML SYR IV SCH (21:26)
[2024-07-26] MEDS: HEPARIN SOD 5,000 UNIT/0.5 ML VIAL SQ SCH (22:25)
[2024-07-27] MEDS: POLYETHYLENE (MIRALAX) 17 GM PACK PO PRN (01:59)
[2024-07-27] MEDS: bisacodyL 10 MG SUPP PR PRN (01:59)
[2024-07-27] MEDS: HYDROCORTISONE 1% CRM 30 GM TUBE EXT PRN (02:59)
[2024-07-27 06:51] LABS: Basophils # (auto) 0.01 K/uL (0.00-0.20); Basophils % (auto) 0.1 %; Eosinophils # (auto) 0.01 K/uL (0.00-0.50); Eosinophils % (auto) 0.1 %; Hematocrit (blood only) 38.2 % (42.0-52.0); Hemoglobin 12.6 g/dl (14.0-18.0); Immature Granulocytes # (auto) 0.01 K/uL (0.01-0.20); Immature Granulocytes % (auto) 0.1 %; Lymphocytes # (auto) 0.65 K/uL (1.20-3.40); Lymphocytes % (auto) 8.8 %; Mean Corpuscular Hemoglobin 29.2 pg (25.0-34.0); Mean Corpuscular Volume 88.6 fL (80.0-100.0); Mean Platelet Volume 10.5 fL (9.4-12.4); Monocytes # (auto) 0.42 K/uL (0.11-0.59); Monocytes % (auto) 5.7 %; Neutrophils # (auto) 6.32 K/uL (1.40-6.50); Neutrophils % (auto) 85.2 %; Platelet Count 215 K/uL (130-400); RDW Standard Deviation 42.5 fL (36.4-46.3); Red Blood Count 4.31 M/uL (4.70-6.10); White Blood Count 7.42 K/ul (4.8-10.8)
[2024-07-27 07:12] LABS: BUN Creatinine Ratio 22.8 (10-20); Calcium 8.9 mg/dl (8.6-10.3); Creatinine Clr Calc Pharmacy 77.4 ml/min; Potassium 3.5 mmol/L (3.5-5.1)
[2024-07-27] MEDS: GABAPENTIN 300 MG CAP PO SCH (09:15)
[2024-07-27] MEDS: OXYBUTYNIN CHLORIDE XL 5 MG TABCR PO SCH (09:15)
[2024-07-27] MEDS: FUROSEMIDE 20 MG TAB PO SCH (09:15)
[2024-07-27] MEDS: PARoxetine HCL 10 MG TAB PO SCH (09:15)
[2024-07-27] MEDS: LORATADINE 10 MG TAB PO SCH (09:15)
--- NOTE | 2024-07-27 11:00 | Hospitalist Consultation ---
Date of Consultation July 27, 2024 Assessment & Plan (1) Nephrolithiasis: (2) Neurogenic bladder: (3) Hypoxia: (4) Quadriplegia: Plan 74-year-old male with past medical history of neurogenic bladder, HLD, HTN, and history of DVT who presented for elective urological procedure with Dr. Barclay on 07/26/2024. Initially patient was hypoxic postoperatively, this has since resolved and he remained stable on room air at this time. #Nephrolithiasis/neurogenic bladder -S/p cystoscopy, right ureteral nephroscopy, retrograde pyelogram, laser lithotripsy, laser lithotripsy, stent exchange, and suprapubic tube exchange -Continues on cefepime 2 g IV BID per urology -Pain control, VTE prophylaxis, discharge planning per primary team #Hypoxia -Mild hypoxia postoperatively requiring supplemental O2 at 1 L via NC overnight -Hypoxia now resolved and stable on room air at 92% -Suspect postanesthesia related -Low suspicion for infectious etiology as no leukocytosis or fever, no adventitious breath sounds on physical exam -Low suspicion for PE as no pleuritic chest pain, dyspnea, cough, calf/thigh pain/swelling, wheezing, or hemoptysis #Quadriplegia - Incomplete quadriplegia (C4 lesion), s/p 2010 trauma. Wheelchair baseline - Muscle spasms- Baclofen, gabapentin, Tizanidine - continue Hospital medicine will continue to follow. Please reach out with any questions or concerns. Supervising Physician Co-Signing Physician Notes Attending Attestation: Chart reviewed in detail, consult care plan d/w ELENITA Nichols. I agree w/ the thompson components of her consult documentation. 74yo male - resident of SNF - with h/o quadriplegia (C4 injury), neurogenic bladder, HTN, suprapubic catheter status, DVT, kidney stones. Presented for elective urological procedure with Dr. Barclay on 07/26/2024 -- s/p cystoscopy, right ureteral nephroscopy, retrograde pyelogram, laser lithotripsy, stent exchange, and suprapubic tube exchange. Labs/vitals remain stable on this POD #1. Had transient hypoxia post-op - now resolved. O2 sats stable today in room air. Thus, had mild post-op pulmonary insufficiency - likely atelectasis. Chronic medical problems are stable at this time. Suhail Zuniga MD History of Present Illness Reason for Consultation: persistent O2 req postop, multiple comorbidities Requesting Physician: Toney Mason MD Attending Physician: Toney Mason MD History of Present Illness Mr. Germain is a pleasant 74-year-old male with PMH of neurogenic bladder, HLD, HTN, and history of DVT. He presented for uteroscopy and laser lithotripsy with Dr. Barclay on 07/26/2024. Per review of operative report, EBL was listed as 0 cc, and there were no complications noted. Per review of patient's vitals postop, he was mildly tachycardic in the 90s and mildly hypoxic requiring 1 L supplemental O2 via nasal cannula. Tachycardia and hypoxia have since resolved. Patient reports that his pain is 0/10 at time of evaluation, and denies any discomfort or soreness. He reports he is tolerating his diet well, and had a bowel movement this morning. He denies any respiratory symptoms including dyspnea, chest pain, cough, wheezing, fever, chills. Denies leg pain. Bill denies any recent medication changes and denies needing any supplemental O2 normally. Allergies Allergy/AdvReac Type Severity Reaction Status Date / Time ciprofloxacin [Cipro] Allergy Intermediate rash Verified 07/26/24 10:06 diazepam Allergy Intermediate rash Verified 07/26/24 10:06 gentamicin Allergy Intermediate rash Verified 07/26/24 10:06 ibuprofen Allergy Intermediate rash Verified 07/26/24 10:06 NSAIDS (Non-Steroidal Allergy Intermediate rash Verified 07/26/24 10:06 Anti-Inflamma Quinolones Allergy Intermediate rash Verified 07/26/24 10:06 Aminoglycosides Allergy Unknown unknown Verified 07/26/24 10:06 Home Medications Medication Instructions Recorded Confirmed Type baclofen 20 mg tablet 20 mg PO QID MUSCLE SPASMS 03/22/19 07/26/24 History bisacodyl 10 mg rectal suppository 10 mg [place] DAILY PRN CONSTIPATION 03/22/19 07/26/24 History furosemide 20 mg tablet 30 mg PO DAILY CHF 03/22/19 07/26/24 History gabapentin 300 mg capsule 300 mg PO TID NEUROPATHY 03/22/19 07/26/24 History loratadine 10 mg tablet 10 mg PO QAM ALLRGIES 03/22/19 07/26/24 History paroxetine HCl 30 mg tablet (Paxil) 30 mg PO QAM ANXIETY 03/22/19 07/26/24 History cholecalciferol (vitamin D3) 50 50 mcg PO QAM 04/24/23 07/26/24 History mcg (2,000 unit) capsule (Vitamin D3) acetaminophen 325 mg tablet 650 mg PO Q4H PRN PAIN/FEVER 08/17/23 07/26/24 History (Tylenol) melatonin 3 mg tablet 3 mg PO HS PRN Sleep 08/17/23 07/26/24 History polyethylene glycol 3350 17 17 g PO DAILY 10/03/23 07/26/24 History gram/dose oral powder (Miralax) tamsulosin 0.4 mg capsule 0.4 mg PO HS 10/03/23 07/26/24 History tizanidine 4 mg tablet 4 mg PO HS 10/03/23 07/26/24 History solifenacin 10 mg tablet (Vesicare) 10 mg PO DAILY #30 tabs 06/12/24 07/26/24 Rx hydrocortisone-pramoxine 1 %-1 % 1 applic topical QID PRN Pain 06/18/24 07/26/24 History topical cream camphor 4.7 %-eucalyptus oil 1.2 1 applic topical TID PRN Congestion 06/21/24 07/26/24 History %-menthol 2.6 % topical ointment (Vicks Vaporub) magnesium hydroxide 400 mg/5 mL 2,400 mg PO DAILY PRN Constipation 06/21/24 07/26/24 History oral suspension (Milk of Magnesia) sodium chloride 0.65 % nasal spray 2 spray intranasal QID PRN DRYNESS 06/21/24 07/26/24 History aerosol (Saline Mist) sodium phosphates 19 gram-7 118 ml [place] DAILY PRN Constipation 06/21/24 07/26/24 History gram/118 mL enema (Fleet Enema) cefepime 1 gram solution for 1 g IM Q12H #10 ea 07/05/24 07/26/24 Rx injection tramadol 50 mg tablet 50 mg PO Q6H PRN pain #20 tabs 07/05/24 07/26/24 Rx calcium carbonate (Tums Extra 300 mg PO TID PRN Heartburn 07/15/24 07/26/24 History Strength Smoothies) hydrocodone 5 mg-acetaminophen 325 1 tab PO Q6H PRN pain #20 tabs 07/26/24 Rx mg tablet Patient History Medical History (Updated 07/27/24 @ 11:02 by Toney Mason MD) Calculus of ureter Urinary tract infection Acute hypotension Acute confusion Hematuria Gross hematuria Unspecified fracture of shaft of right tibia, subsequent encounter for closed fracture with routine healing Hypertensive heart disease without heart failure Personal history of urinary (tract) infections Weakness Quadriplegia, C1-C4 incomplete Sepsis, unspecified organism Personal history of other venous thrombosis and embolism Insomnia Other muscle spasm Hyperlipidemia Urine retention MRSA (methicillin resistant staph aureus) culture positive blood and urine cultures 02/2023 hospitalization correction resident resident of [facility] Depression Anxiety GERD (gastroesophageal reflux disease) Neurogenic bladder History of COVID-19 12/2021- no symptoms, resolved Recurrent UTI (urinary tract infection) Suprapubic catheter Situational depression Chronic pain Generalized/diffuse Central cord syndrome Spinal cord injury C4/5 Partial paralysis below shoulders Deep vein thrombosis LLE (after trauma/thrown off horse 2010), IVC placed Hypertension Surgical History S/P cystoscopy with ureteral stent placement w/laser destruction kidney stone; multiple; most recent 06/22/24, w/cystolithopaxy History of urologic surgery left spermatocelectomy placement suprapubic catheter History of orthopedic surgery H/O hemorrhoidectomy Hx of surgical procedure Spermatocelectomy, left (08/05/19): LMA#5 at [facility]. No issues noted per post-op anesthesia progress note. History of lithotripsy History of cystoscopy cysto, laser, stent (05/02/23): LMA#5 at [facility] History of colonoscopy History of tooth extraction History of arthroscopy left knee Previous back surgery fusion C4/C5 Family History Mother Family hx colonic polyps Social History Smoking Status: Never smoker Second Hand Exposure: No (UNKNOWN); Do You Dip or Chew Tobacco: No (UNKNOWN); Hx Alcohol Use: Yes Alcohol type: hard liquor Hx Substance Use: No Preferred Language: Citizen Of [place] Communication Ability: Effective Visual Impairment: No Limitations Social Staff Worker Required: No Beliefs That Will Affect Care: None Current Living Situation: [facility] Current Living Situation Comment: [facility] Feels Safe at Home: Yes Assistive Devices: None Physical Exam Physical Exam: General: No acute distress, nondiaphoretic, well-developed, well-nourished. Cardiac: Regular rate and rhythm without murmurs gallops or rubs. Pulm: Clear to auscultation bilaterally without wheezes, rales or rhonchi. No respiratory distress. 92% on room air. Abdominal: Soft, nontender, distened. Bowel sounds present. : Suprapubic catheter in place. Neuro: A&O x3. No focal neurological deficits. Quadriplegia at baseline. MSK: Contractures of UE bilaterally. No calf/thigh swelling or tenderness bilaterally. Results & Data Results & Data Vital Signs (Past 12 Hours) Vital Signs Temp Pulse Resp BP Pulse Ox O2 Del Method O2 Flow Rate 07/27/24 07:50 97.7 F 84 16 147/84 H 93 Nasal Cannula 1 07/27/24 03:01 98.4 F 83 16 108/62 91 Nasal Cannula 1 07/26/24 23:18 98.6 F 89 16 115/80 91 Nasal Cannula 1 Laboratory Results Reviewed CBC with differential Reviewed BMP PG Care Time/CCT Total # of Minutes Spent Total Time Spent with Patient: Total time spent is greater than 50% in coordination of care (as documented) at patient's floor/unit and/or counseling patient: Coding Level of Care Code 79795 IN/OBS CONSULT LVL 3,45M Diagnoses Nephrolithiasis N20.0 Neurogenic bladder N31.9 Hypoxia R09.02 Quadriplegia G82.50
--- NOTE | 2024-07-27 11:04 | Urology Progress Note ---
Date of Service July 27, 2024 Assessment & Plan (1) Hypoxia: Plan: Persistent oxygen requirement. He will keep working with incentive spirometry. Hopefully as he gets farther out from anesthesia event, he will return to baseline. We will continue to monitor and try to wean O2. No evidence of aspiration during surgery. Low suspicion for PE at this point. Suspect this is all postanesthesia for now (2) Calculus of ureter: Plan: Recovering appropriately s/p ureteroscopy and laser lithotripsy. We will maintain his Evans catheter for now. Will plan to continue antibiotics. (3) Quadriplegia: (4) Chronic indwelling Evans catheter: (5) Nephrolithiasis: Admission and Anticipated Discharge Date Admission Date: July 26, 2024 Subjective Feeling okay this morning, denies any significant postsurgical pain Has had persistent oxygen requirement, prompting admission after surgery Satting in the low 90s on 1 L, dropped into the 80s when O2 was stopped this morning Physical Exam Physical Exam: Well-appearing, NAD, seated in bed Nasal cannula in place, oxygen at 1 L. incentive spirometer at the bedside Evans catheter draining clear yellow urine Results & Data Vital Signs (Past 12 Hours) Vital Signs Temp Pulse Resp BP Pulse Ox O2 Del Method O2 Flow Rate 07/27/24 07:50 36.5 C 84 16 147/84 H 93 Nasal Cannula 1 07/27/24 03:01 36.9 C 83 16 108/62 91 Nasal Cannula 1 07/26/24 23:18 37.0 C 89 16 115/80 91 Nasal Cannula 1 PG Care Time/CCT Total # of Minutes Spent Total Time Spent with Patient: Total time spent is greater than 50% in coordination of care (as documented) at patient's floor/unit and/or counseling patient: Coding Level of Care Code 86896 SUB INP/OBS CARE 2/35MIN Diagnoses Hypoxia R09.02 Calculus of ureter N20.1 Quadriplegia G82.50 Chronic indwelling Evans catheter Z97.8 Nephrolithiasis N20.0
[2024-07-27 11:06] VITALS: BP 126/73; PULSE 77; RESP 18; TEMP 99
[2024-07-27 11:41] VITALS: O2SAT 92
--- NOTE | 2024-07-27 15:05 | Discharge Summary ---
Date of Service July 27, 2024 Admission HPI Per Admitting Provider 74-year-old quadriplegic well-known to my service who returns for the second stage of multistage right ureteroscopy laser lithotripsy Plan for SP changes well today Admission Exam Per Admitting Provider Constitutional: no acute distress Respiratory: normal respiratory effort; no respiratory distress and no labored breathing Musculoskeletal: Head/Neck/Chest: normocephalic Neurologic: awake Psychiatric: Orientation: alert and oriented x 3 Genitourinary: Evans intact Principal Diagnosis Nephrolithiasis, hypoxia Discharge Exam Well-appearing, NAD Seated in bed Breathing comfortably on room air Evans catheter in place draining clear yellow urine. Discharge Data Allergies Allergy/AdvReac Type Severity Reaction Status Date / Time ciprofloxacin [Cipro] Allergy Intermediate rash Verified 07/26/24 10:06 diazepam Allergy Intermediate rash Verified 07/26/24 10:06 gentamicin Allergy Intermediate rash Verified 07/26/24 10:06 ibuprofen Allergy Intermediate rash Verified 07/26/24 10:06 NSAIDS (Non-Steroidal Allergy Intermediate rash Verified 07/26/24 10:06 Anti-Inflamma Quinolones Allergy Intermediate rash Verified 07/26/24 10:06 Aminoglycosides Allergy Unknown unknown Verified 07/26/24 10:06 Consultations 07/26/24 18:21 Consult Internal Medicine Routine Procedures Performed Operation Date: 07/26/24 10:50 Actual Procedures p Cystoscopy,Right: Ureteronephroscopy, Retrograde Pyelogram, Laser Lithotripsy, (Right) - Jordan Barclay MD s Exchange of Stent Catheter(Right) - Jordan Barclay MD Ordered Studies 07/26/24 10:50 FL retrograde includes kub Routine Hospital Course (1) Hypoxia: After surgery on 07/26/2024 he had a persistent oxygen requirement. He was admit gee overnight for monitoring. By 07/27 he was able to maintain normal O2 sats on room air and was feeling well. He was discharged home in stable condition. (2) Calculus of ureter: He underwent ureteroscopy and stone treatment on 07/26/2024. Postoperatively he was feeling well and not having significant discomfort. Evans catheter remained in place to drain his bladder. Total Time Total Time Spent Total Time Spent (In Minutes): 15 Discharge Plan Discharge Items Patient Disposition: Home - Self-Care Reason For Visit: Calculus of Kidney Discharge Diagnosis: kidney stones Activity: Resume your previous activity Non-emergency contact: Urologist Call non-emergency contact if: your pain is not controlled, your pain is worsening, your pain is unusual for you and your temperature is above 101 Follow-up/Referrals: Dang Pritchett DO [Primary Care Provider] - Diet: Regular Addtl Attending Provider Instructions: Please continue your previous diet, take all medications as prescribed and keep all follow-ups as scheduled. Please call our office at [phone] with any questions, concerns or need to reschedule appointments for any reason. We are happy to assist you. While you have a ureteral stent in place: Some discomfort is normal. Certain movements may trigger pain or a feeling that you need to urinate. You may also feel mild soreness or pressure before or during urination. These symptoms should go away a few days after the stent is removed. Your urine may be slightly pink or red. This is due to bleeding caused by minor irritation from the stent. This may happen on and off while you have the stent, it is not harmful and is to be expected. Medication to help minimize discomfort or bladder spasms, or to prevent infection may be prescribed. Take this as directed. Drink plenty of fluids to help flush out your urinary tract. If you go home with a catheter, wash with soapy water and a fresh washcloth twice daily. We recommend mild bar soap such as Dial or Dove. How long will you need a stent? An appointment should already be made for you for stent removal, unless directed otherwise. The stent is often taken out after the blockage in the ureter is treated or the ureter has healed. This may take 1-2 weeks, or longer. If a stent is needed for a longer period of time, it may need to be exchanged every few months. Likely prior to your followup appointment you will be asked to get an X-ray, please complete this the night before or morning of your appointment. When to call [facility] at [phone]: Your urine contains heavy blood clots You are constantly leaking urine Fever of 101F or higher, chills, nausea, or vomiting Your pain is not relieved with medication The end of the stent comes out of your urethra Pending Studies at Discharge: No Stand-Alone Forms: Anesthesia/Sedation, Adult, [facility] Medications and DC Order Prescriptions: New hydrocodone-acetaminophen 5-325 mg tablet 1 tab PO Q6H PRN (Reason: pain) Qty: 20 0RF Continued solifenacin [Vesicare] 10 mg tablet 10 mg PO DAILY Qty: 30 2RF baclofen 20 mg Tablet 20 mg PO QID Rx Instructions: At 06:01 am, 12:01 pm, 06:01 pm, and 09:01 pm bisacodyl 10 mg Suppository 10 mg [place] DAILY PRN (Reason: CONSTIPATION) Rx Instructions: HOLD FOR LOOSE STOOLS paroxetine HCl [Paxil] 30 mg Tablet 30 mg PO QAM gabapentin 300 mg Capsule 300 mg PO TID Rx Instructions: Daily at 09:01 am, 01:01pm and 05:01 pm furosemide 20 mg Tablet 30 mg PO DAILY loratadine 10 mg Tablet 10 mg PO QAM cholecalciferol (vitamin D3) [Vitamin D3] 50 mcg (2,000 unit) Capsule 50 mcg PO QAM hydrocortisone-pramoxine 1-1 % Cream 1 applic TOPICAL QID PRN (Reason: Pain) Rx Instructions: allow at least 3 hours between applications magnesium hydroxide [Milk of Magnesia] 400 mg/5 mL Suspension 2,400 mg PO DAILY PRN (Reason: Constipation) Rx Instructions: Give on day 4 of no BM Fleet Enema 19-7 gram/118 mL Enema 118 ml [place] DAILY PRN (Reason: Constipation) Saline Mist 0.65 % Aerosol,Godfrey 2 spray INTRANASAL QID PRN (Reason: DRYNESS) Vicks Vaporub 4.7-1.2-2.6 % Ointment 1 applic TOPICAL TID PRN (Reason: Congestion) acetaminophen [Tylenol] 325 mg Tablet 650 mg PO Q4H MDD 3 GRAMS APAP/24 HOURS PRN (Reason: PAIN/FEVER) melatonin 3 mg Tablet 3 mg PO HS PRN (Reason: Sleep) tizanidine 4 mg Tablet 4 mg PO HS tamsulosin 0.4 mg Capsule 0.4 mg PO HS polyethylene glycol 3350 [Miralax] 17 gram/dose Powder 17 g PO DAILY Rx Instructions: Hold for loose stools cefepime 1 gram recon soln 1 g IM Q12H Qty: 10 0RF tramadol 50 mg tablet 50 mg PO Q6H PRN (Reason: pain) Qty: 20 0RF Tums Extra Strength Smoothies 300 mg (750 mg) Tablet,Chewable 300 mg PO TID PRN (Reason: Heartburn) Discharge Orders: Discharge Order (Routine); Ordered 07/27/24 Ordered By: Toney Cazares/Other Patient Handouts: DVT Post Op Prevention Admission Data Admit Date/Time: 07/26/24 18:10 Attending Provider: Toney Mason Admit Provider: Toney Mason Primary Care Provider: Dang Pritchett Other Providers: Suhail Zuniga Coding Level of Care Code 92572 IN/OBS DISCH 30 MIN/LESS Diagnoses Hypoxia R09.02 Calculus of ureter N20.1
== END 2024-07-27 17:28 | disposition home or self-care (01) | DRG 659 ==
LOC: ASU 09:31 → INTOOBSV 18:10 → 3E 18:10